=== PATIENT | female | born 1960 | race Caucasian/White ===

== ENCOUNTER 2020-05-10 14:37 | Outpatient (REF) | payer MEDICAID, SELFPAY ==
[2020-05-10 15:38] LABS: MANUAL DIFF FLAG NO
[2020-05-10 15:42] LABS: Basophils Percent Auto 0.4 % (0-2); Eosinophils Absolute Auto 0.1 X10*3/uL (0.0-0.4); Eosinophils Percent Auto 1.9 % (0-4); Hematocrit 36.8 % (37-47); Hemoglobin 11.4 g/dl (12.0-16.0); Imm Gran Abs Auto 0.04 X10*3/uL (0.00-0.03); Imm Gran Pct Auto 0.5 % (0.0-0.4); Lymphocytes Absolute Auto 1.4 X10*3/uL (1.2-4.9); Lymphocytes Percent Auto 19.4 % (20-40); Mean Corpuscular Hemoglobin 27.8 pg (27.0-33.0); Mean Corpuscular Volume 89.8 fL (80-98); Mean Platelet Volume 9.7 fL (9.4-12.3); Monocytes Absolute Auto 0.5 X10*3/uL (0.1-1.2); Neutrophils Absolute Auto 5.2 X10*3/uL (2.0-8.3); Neutrophils Percent Auto 70.8 % (45-73); Platelet Count 175 X10*3/uL (160-400); Red Cell Distribution Width 12.2 % (11.0-16.0); White Blood Count 7.4 X10*3/uL (4.8-10.8)
[2020-05-10 15:54] LABS: Estimated Average Glucose 332 mg/dL; Hemoglobin A1c % 13.2 %
[2020-05-10 16:12] LABS: Alanine Aminotransferase 14 U/L (0-31); Albumin Level 3.9 g/dL (3.5-5.0); Alkaline Phosphatase 89 U/L (39-117); Anion Gap 13 (12-20); Aspartate Amino Transferase 13 U/L (5-31); Bilirubin Total 0.3 mg/dL (0.0-1.0); Blood Urea Nitrogen 52 mg/dL (9-16); Calcium 8.4 mg/dL (8.4-10.2); Carbon Dioxide 26 mmol/L (22-29); Chloride 103 mmol/L (96-108); Estimated Glomerular Filt Rate 33; Glucose Random 494 mg/dL (60-115); Potassium 5.5 mmol/l (3.3-5.1); Sodium 136 mmol/L (135-145); Total Protein 6.8 g/dL (6.5-8.0)
[2020-05-10 16:31] LABS: Vitamin D 25-OH Total 10.1 ng/mL (>30)
[2020-05-10 16:38] LABS: Creatinine Urine 101.41 mg/dL; Microalbum/Creatinine Ratio Ur 96.6 ug/mg cr
== END 2020-05-10 14:38 | disposition home or self-care (01) ==
LOC: HO.LAB 14:37
PROVIDERS: PCP Internal Medicine; Visit Provider Internal Medicine
DX: R10.9 Unspecified abdominal pain (principal); E11.22 Type 2 diabetes mellitus with diabetic chronic kidney disease; N18.9 Chronic kidney disease, unspecified; E55.9 Vitamin D deficiency, unspecified
CPT/HCPCS: 36415; 80053; 82043; 82306; 83036; 85025

== ENCOUNTER 2020-09-14 13:28 | Outpatient (REF) | payer MEDICAID, SELFPAY ==
[2020-09-14 14:26] LABS: Estimated Average Glucose 292 mg/dL; Hemoglobin A1c % 11.8 %
[2020-09-14 15:02] LABS: Creatinine Urine 136.58 mg/dL; Microalbum/Creatinine Ratio Ur 51.2 ug/mg cr
[2020-09-14 15:08] LABS: Alanine Aminotransferase 12 U/L (0-31); Albumin Level 4.3 g/dL (3.5-5.0); Alkaline Phosphatase 98 U/L (39-117); Anion Gap 18 (12-20); Aspartate Amino Transferase 14 U/L (5-31); Bilirubin Total 0.4 mg/dL (0.0-1.0); Blood Urea Nitrogen 110 mg/dL (9-16); Calcium 9.2 mg/dL (8.4-10.2); Carbon Dioxide 19 mmol/L (22-29); Chloride 107 mmol/L (96-108); Estimated Glomerular Filt Rate 22; Glucose Fasting 379 mg/dL (60-99); Potassium 7.2 mmol/L (3.3-5.1); Sodium 137 mmol/L (135-145); Total Protein 7.4 g/dL (6.5-8.0)
[2020-09-19 15:52] LABS: VITAMIN D (1,25 OH) D3 30 pg/mL; Vit D (1,25-Dihydroxy) Total 30 pg/mL (18-72); Vitamin D (1,25 OH) D2 <8 pg/mL
== END 2020-09-14 13:29 | disposition home or self-care (01) ==
LOC: HO.LAB 13:28
PROVIDERS: PCP Internal Medicine; Visit Provider Internal Medicine
DX: E11.22 Type 2 diabetes mellitus with diabetic chronic kidney disease (principal); I12.9 Hypertensive chronic kidney disease with stage 1 through stage 4 chronic kidney disease, or unspecified chronic kidney disease; N18.9 Chronic kidney disease, unspecified; E55.9 Vitamin D deficiency, unspecified; Z79.4 Long term (current) use of insulin
CPT/HCPCS: 36415; 80053; 82043; 82652; 83036

== ENCOUNTER 2020-09-21 14:22 | Outpatient (REF) | payer MEDICAID, SELFPAY ==
[2020-09-21 15:50] LABS: Anion Gap 12 (12-20); Blood Urea Nitrogen 38 mg/dL (9-16); Calcium 8.6 mg/dL (8.4-10.2); Carbon Dioxide 25 mmol/L (22-29); Chloride 108 mmol/L (96-108); Estimated Glomerular Filt Rate 38; Glucose Random 141 mg/dL (60-115); Potassium 5.2 mmol/L (3.3-5.1); Sodium 140 mmol/L (135-145)
== END 2020-09-21 14:23 | disposition home or self-care (01) ==
LOC: HO.LAB 14:22
PROVIDERS: PCP Internal Medicine; Visit Provider Student in an Organized Health Care Education/Training Program
DX: N17.9 Acute kidney failure, unspecified (principal)
CPT/HCPCS: 36415; 80048

== ENCOUNTER 2020-10-11 18:56 | Emergency (ER) | payer MEDICAID, SELFPAY ==
--- NOTE | ~2020-10-11 | XR_ITS ---
EXAMINATION: XR TIBIA-FIBULA, RIGHT XR ANKLE, RIGHT XR FOOT, RIGHT CLINICAL INFORMATION: Trauma. COMPARISON: None TECHNIQUE: AP and lateral views of the right tibia and fibula. AP, lateral, and mortise views of the right ankle and AP, lateral, and oblique views of the right foot. FINDINGS: RIGHT TIBIA AND FIBULA: Minimal osteoarthritis of the right knee joint. No fracture or malalignment. Calcific atherosclerosis is present in the popliteal and runoff arteries. Mild soft tissue swelling extremities edema. 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 No acute fractures are identified. There is an old fracture at the tip of the lateral malleolus. No acute fractures. Small enthesopathic spurs are present at the Achilles tendon insertion and plantar fascial origin on the calcaneus. Calcific atherosclerosis is present in the ankle and foot. RIGHT FOOT: No acute fracture or malalignment. Bone mineralization is normal. Soft tissues are swollen. Calcific atherosclerosis is present in the foot. No erosions. Small enthesopathic spurs are present at the Achilles tendon insertion and plantar fascial origin on the calcaneus. XR/XR ankle RT 2V IMPRESSION: No acute fracture or malalignment in the right tibia, fibula, ankle, and foot. Mild osteoarthritis in the right knee and right ankle. Soft tissue swelling at the right ankle and foot.
--- NOTE | ~2020-10-11 | XR_ITS ---
EXAMINATION: XR TIBIA-FIBULA, RIGHT XR ANKLE, RIGHT XR FOOT, RIGHT CLINICAL INFORMATION: Trauma. COMPARISON: None TECHNIQUE: AP and lateral views of the right tibia and fibula. AP, lateral, and mortise views of the right ankle and AP, lateral, and oblique views of the right foot. FINDINGS: RIGHT TIBIA AND FIBULA: Minimal osteoarthritis of the right knee joint. No fracture or malalignment. Calcific atherosclerosis is present in the popliteal and runoff arteries. Mild soft tissue swelling extremities edema. 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 No acute fractures are identified. There is an old fracture at the tip of the lateral malleolus. No acute fractures. Small enthesopathic spurs are present at the Achilles tendon insertion and plantar fascial origin on the calcaneus. Calcific atherosclerosis is present in the ankle and foot. RIGHT FOOT: No acute fracture or malalignment. Bone mineralization is normal. Soft tissues are swollen. Calcific atherosclerosis is present in the foot. No erosions. Small enthesopathic spurs are present at the Achilles tendon insertion and plantar fascial origin on the calcaneus. XR/XR foot RT 2V IMPRESSION: No acute fracture or malalignment in the right tibia, fibula, ankle, and foot. Mild osteoarthritis in the right knee and right ankle. Soft tissue swelling at the right ankle and foot.
--- NOTE | ~2020-10-11 | XR_ITS ---
EXAMINATION: XR TIBIA-FIBULA, RIGHT XR ANKLE, RIGHT XR FOOT, RIGHT CLINICAL INFORMATION: Trauma. COMPARISON: None TECHNIQUE: AP and lateral views of the right tibia and fibula. AP, lateral, and mortise views of the right ankle and AP, lateral, and oblique views of the right foot. FINDINGS: RIGHT TIBIA AND FIBULA: Minimal osteoarthritis of the right knee joint. No fracture or malalignment. Calcific atherosclerosis is present in the popliteal and runoff arteries. Mild soft tissue swelling extremities edema. 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 No acute fractures are identified. There is an old fracture at the tip of the lateral malleolus. No acute fractures. Small enthesopathic spurs are present at the Achilles tendon insertion and plantar fascial origin on the calcaneus. Calcific atherosclerosis is present in the ankle and foot. RIGHT FOOT: No acute fracture or malalignment. Bone mineralization is normal. Soft tissues are swollen. Calcific atherosclerosis is present in the foot. No erosions. Small enthesopathic spurs are present at the Achilles tendon insertion and plantar fascial origin on the calcaneus. XR/XR tibia fibula RT 2V IMPRESSION: No acute fracture or malalignment in the right tibia, fibula, ankle, and foot. Mild osteoarthritis in the right knee and right ankle. Soft tissue swelling at the right ankle and foot.
[2020-10-11 20:14] VITALS: BP 149/71; PULSE 105; RESP 18; TEMP 37.3; O2SAT 97; BMI 48.1
--- NOTE | 2020-10-11 21:08 | ED_ITS ---
HPI - Extremity Injury (Lower) General Chief Complaint: Extremity Injury, Lower Stated Complaint: Ankle pain Time Seen by Provider: 10/11/20 20:20 Source: patient Mode of arrival: ambulatory Limitations: no limitations History of Present Illness HPI Narrative: 60-year-old female here with an inversion injury to the right ankle yesterday. Increasing pain and swelling today worsened with weight- bearing. Taking home gabapentin with continued pain. No numbness, tingling, erythema, warmth, fevers, chills. Lives at home with the daughter. Has a cane and walker Related Data Allergies Allergy/AdvReac Type Severity Reaction Status Date / Time No Known Allergies Allergy Unverified 04/05/20 15:00 acetaminophen [Tylenol] AdvReac Unknown vommiting, Verified 09/10/17 00:00 itching ibuprofen AdvReac Unknown vommiting, Verified 09/10/17 00:00 itching morphine AdvReac Unknown vomiting Verified 09/21/19 00:00 Motrin Allergy Unknown itching Uncoded 09/21/19 00:00 Review of Systems Review of Systems: Yes all other systems are reviewed and are negative Constitutional: Constitutional: Reports no additional constitutional complaints, Denies body ache(s), Denies chills, Denies fever(s), Denies headache(s) and Denies weakness Eyes: Eyes: Reports no additional eye complaints and Denies change in vision ENT: Reports system reviewed and no additional complaints, except as documented, Denies dizziness, Denies headache(s), Denies nasal congestion, Denies nasal discharge and Denies neck pain Cardiovascular: Cardiovascular: Reports no additional cardiovascular complaints, Denies chest pain, Denies leg edema and Denies dyspnea Respiratory: Respiratory: Reports no additional respiratory complaints, Denies cough and Denies dyspnea Gastrointestinal: Gastrointestinal: Reports no additional gastrointestinal complaints, Denies abdominal pain, Denies diarrhea, Denies nausea and Denies vomiting Genitourinary: Genitourinary: Reports no additional female genitourinary complaints and Denies urinary incontinence Musculoskeletal: Musculoskeletal: Reports no additional musculoskeletal complaints, Denies back pain, Reports arthralgias, Reports joint swelling, Reports limited range of motion, Denies neck pain, Denies numbness and Denies tingling Integumentary/Breasts: Skin/Breast: Reports system reviewed and no additional complaints, except as docu and Denies rash Neurologic: Reports system reviewed and no additional complaints, except as documented, Denies Abnormal speech present, Denies dizziness, Denies headache(s), Denies numbness, Denies tingling and Denies weakness PMFSH Past Medical History Attestation statement: The following information was validated with the patient. Source: old records reviewed and nursing notes reviewed Medical History Asthma delivery delivered Chronic pain Depression Diabetes High cholesterol Hypertension Surgical History Hx of cholecystectomy Social History Social History Advance Directives: No Advance Directives Information Provided: Yes Physical Exam Vital Signs: Vital Signs: Last Vital Signs Temp 99.2 F 10/11/20 20:14 Pulse 105 H 10/11/20 20:14 Resp 18 10/11/20 20:14 BP 149/71 H 10/11/20 20:14 Pulse Ox 97 10/11/20 20:14 Body Mass Index 48.1 Const: General: cooperative, healthy appearing, comfortable and no acute distress Orientation/consciousness: patient oriented x3 Limitations: no limitations HENMT: Head: Yes normal to inspection Ears: hearing grossly normal bilaterally General nose exam: Normal external nose present Face and sinus: Yes normal facial exam Mouth: Normal oral and palatal mucosa present Throat: Yes posterior oropharynx normal Eyes: General: appearance normal, both eyes and all related structures Pupils: Equal, round and reactive pupils present Neck: Neck: Yes normal visual inspection Chest: Chest palpation & inspection: normal inspection of the chest Resp: Effort & Inspection: normal respiratory effort Auscultation: clear to auscultation bilaterally Cardio: Rate: regular rate Rhythm: regular rhythm Peripheral pulses: Peripheral pulses 2+ throughout GI: Inspection: Yes normal to inspection Palpation (GI): Soft to palpation and nontender Auscultation: normal bowel sounds Back/Spine/Pelvis: Thoracic/Lumbar Spine: thoracic and lumbar spine normal to inspection Skin: General skin exam: no rashes or lesions noted Neuro: General: patient oriented x3, no focal motor deficits and normal sensation to monofilament Cranial nerves: Yes Equal, round and reactive pupils present Cognition (Neuro): normal cognition Speech: No Abnormal speech present Gait exam (Neuro): Normal gait present Motor exam (neuro): 5/5 motor strength present throughout Extrem: Other: Tenderness over the lateral ankle with mild to moderate swelling over the dorsal foot. Palpable distal pulses. Patient is able to flex and extend the toes with no difficulty. She does have pain with plantar flexion and dorsiflexion of the foot. No warmth or erythema. No ligamental laxity Course Course Course Narrative: 60-year-old female here with right foot/ankle pain status post inversion injury yesterday. Will order x-rays. 2114-x-rays unremarkable. Likely sprain. Patient was placed in Tanmay wrap. She tells me that she has a cane and a walker at home which she will use for ambulation. She lives with her daughter who helps take care of her. She was offered a physical therapy evaluation and case management involvement for possible short-term rehab placement but declined. Reviewed worrisome signs and symptoms of when to return to the emergency department. Comfortable discharge home. Procedures Procedure Narrative Procedure Narrative: tanmay wrap right ankle/foot MDM - Extremity Injury (Lower) Medical Records Attestation: I reviewed the patient's medical records. Lab Data Attestation: I reviewed the patient's lab results. Imaging Data ankle/foot/tibia/fibula x-ray: Attestation: I personally reviewed and interpreted this imaging study as follows: Radiologist's impression: FINDINGS: RIGHT TIBIA AND FIBULA: Minimal osteoarthritis of the right knee joint. No fracture or malalignment. Calcific atherosclerosis is present in the popliteal and runoff arteries. Mild soft tissue swelling extremities edema. 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 No acute fractures are identified. There is an old fracture at the tip of the lateral malleolus. No acute fractures. Small enthesopathic spurs are present at the Achilles tendon insertion and plantar fascial origin on the calcaneus. Calcific atherosclerosis is present in the ankle and foot. RIGHT FOOT: No acute fracture or malalignment. Bone mineralization is normal. Soft tissues are swollen. Calcific atherosclerosis is present in the foot. No erosions. Small enthesopathic spurs are present at the Achilles tendon insertion and plantar fascial origin on the calcaneus. XR/XR ankle RT 2V IMPRESSION: No acute fracture or malalignment in the right tibia, fibula, ankle, and foot. Mild osteoarthritis in the right knee and right ankle. Soft tissue swelling at the right ankle and foot. Discharge Plan Discharge Clinical Impression: Ankle sprain and strain Patient Disposition: Home, Self-Care Instructions: Ankle Sprain (ED) Additional Instructions: Rest, ice, tanmay wrap for comfort, limit weight bearing Continue your gabapentin at home Follow-up with your PCP in 2-3 days for persistent pain. Referrals: Tavo Huber MD [Primary Care Provider] - 2 days
== END 2020-10-11 22:00 | disposition home or self-care (01) ==
PROVIDERS: Emergency Provider Internal Medicine; PCP Internal Medicine
DX: S93.401A Sprain of unspecified ligament of right ankle, initial encounter (principal); S96.911A Strain of unspecified muscle and tendon at ankle and foot level, right foot, initial encounter; X50.1XXA Overexertion from prolonged static or awkward postures, initial encounter; M19.071 Primary osteoarthritis, right ankle and foot; M17.11 Unilateral primary osteoarthritis, right knee; E11.9 Type 2 diabetes mellitus without complications; I10 Essential (primary) hypertension; E78.5 Hyperlipidemia, unspecified; J45.909 Unspecified asthma, uncomplicated; Z79.899 Other long term (current) drug therapy; Y93.9 Activity, unspecified; Y92.9 Unspecified place or not applicable; Y99.9 Unspecified external cause status
CPT/HCPCS: 73590; 73600; 73620; 99283

== ENCOUNTER 2020-11-22 21:13 | Inpatient (IN) | payer MEDICAID, SELFPAY ==
--- NOTE | ~2020-11-22 | XR_ITS ---
EXAMINATION: XR ANKLE, LEFT CLINICAL INFORMATION: Pain status post injury COMPARISON: None TECHNIQUE: AP, lateral, and mortise views of the left ankle. FINDINGS: There is marked bilateral soft tissue swelling seen. No definite acute ankle fracture is seen. The ankle mortise appears stable. Vascular calcifications are present. XR/XR ankle LT min 3V IMPRESSION: Soft tissue swelling without fracture
--- NOTE | ~2020-11-22 | XR_ITS ---
EXAMINATION: XR CHEST CLINICAL INFORMATION: Cough COMPARISON: 09/12/2016 TECHNIQUE: 2 views of the chest were obtained. FINDINGS: The heart is enlarged. There is central pulmonary vascular congestion and increased interstitial markings present bilaterally. Small pleural effusions are present. Findings are suggestive of CHF with interstitial edema. XR/XR chest 2V IMPRESSION: Cardiomegaly with CHF and interstitial pulmonary edema is the most likely diagnosis.
[2020-11-22 21:28] VITALS: BP 130/65; BP 148/86; PULSE 100; PULSE 96; RESP 16; TEMP 37; O2SAT 95; BMI 48.4
[2020-11-22 21:40] VITALS: BP 131/64; PULSE 92; RESP 18; TEMP 36.3; O2SAT 97
--- NOTE | 2020-11-22 22:55 | ED_ITS ---
HPI - Extremity Injury (Lower) General Chief Complaint: Extremity Injury, Lower Stated Complaint: ankle pain Time Seen by Provider: 11/22/20 21:51 Source: patient Mode of arrival: EMS History of Present Illness HPI Narrative: 60-year-old female who was recently discharged from SNF for rehab arrives via ambulance for patient stating that she attempted to prepare some food for herself at home and states that she stepped and landed a little bit off on her left ankle and states that afterwards she was having some considerable pain at the left ankle and called EMS to be brought in for further evaluation. Patient states that she feels weak and unable to complete her ADLs because ?she has no help at home?. Otherwise, she denies any fever, chills, shortness of breath/chest pain/palpitations, GI symptoms, or symptoms. Related Data Home Medications Medication Instructions Recorded Confirmed albuterol sulfate [ProAir HFA] 2 puff INHALATION QID PRN 11/23/20 11/23/20 amlodipine 1 tab PO DAILY 11/23/20 11/23/20 aspirin 1 tab PO DAILY 11/23/20 11/23/20 fluoxetine 1 cap PO DAILY 11/23/20 11/23/20 fluticasone propionate [Flovent 2 puff INHALATION BID 11/23/20 11/23/20 HFA] furosemide 40 mg PO DAILY 11/23/20 11/23/20 gabapentin 1 cap PO TID 11/23/20 11/23/20 insulin glargine [Lantus U-100 65 unit SUBCUT BEDTIME 11/23/20 11/23/20 Insulin] insulin lispro [Humalog U-100 SUBCUT DIRECTED 11/23/20 Insulin] metoprolol succinate 1 tab PO DAILY 11/23/20 11/23/20 omeprazole 1 cap PO DAILY 11/23/20 11/23/20 simvastatin 1 tab PO BEDTIME 11/23/20 11/23/20 tramadol 1 tab PO QID 11/23/20 11/23/20 Allergies Allergy/AdvReac Type Severity Reaction Status Date / Time No Known Allergies Allergy Verified 11/22/20 21:28 acetaminophen [Tylenol] AdvReac Unknown vommiting, Verified 11/22/20 21:28 itching ibuprofen AdvReac Unknown vommiting, Verified 11/22/20 21:28 itching morphine AdvReac Unknown vomiting Verified 11/22/20 21:28 Motrin Allergy Unknown itching Uncoded 09/21/19 00:00 Review of Systems Review of Systems: Pertinent positives and negatives as stated in HPI 10 point review of systems is otherwise negative. PMFSH Past Medical History Source: nursing notes reviewed Medical History Asthma delivery delivered Chronic pain Depression Diabetes High cholesterol Hypertension Surgical History Hx of cholecystectomy Social History Social History Alcohol intake: never Smoking Status: Former smoker Advance Directives: No Patient : No Physical Exam Vital Signs: Vital Signs: Last Vital Signs Temp 98.8 F 11/23/20 00:56 Pulse 93 11/23/20 00:56 Resp 20 11/23/20 00:56 BP 116/56 L 11/23/20 00:56 Pulse Ox 94 11/23/20 00:56 Body Mass Index 48.4 VITAL SIGNS: Reviewed. GENERAL: Well developed, well nourished, in no acute distress. HEAD: Normocephalic/atraumatic, EYES: PERRLA, EOMI EARS: Ext canals without abnormality OROPHARYNX: no oral lesions noted, posterior pharynx clear NECK: Supple, no adenopathy LUNGS: Normal breath sounds. No adventitious sounds or accessory muscle use. SpO2<97> CARDIOVASCULAR: Regular rate and rhythm without noted murmurs, no JVD but noted bilateral lower leg 1-2+ edema ABDOMEN: Obese, Soft, non-tender, non-distended with bowel sounds. EXTREMITIES: Left ankle/foot mild swelling but appear somewhat chronic and symmetric with right on comparison, foot is warm, capillary refill less than 3 seconds, palpable DP/PT. NEUROLOGIC: Alert and oriented x 4. Strength and sensation to light touch were grossly intact x 4. Course Course Course Narrative: 60-year-old female with history and clinical presentation consistent with poor mobility at home despite completing a recent course in rehab for which she was discharged on 11/14. Will evaluate with basic lab work to ensure no evidence of infection or new anemia that may have contributed to patient's current event this evening. At this time patient is requesting further help at home and is interested in re-entering rehab. On review of all investigations results consistent with CHF exacerbation with FELICIA. Patient provided with the Elliott placement and 80 mg of IV Lasix. Discussed case with inpatient hospital team who is agreeable for admission. MDM - Extremity Injury (Lower) Lab Data Result diagrams: 11/22/20 23:52 11/22/20 23:52 Labs: Lab Results 11/22/20 11/22/20 11/22/20 Range/Units 23:44 23:52 23:52 WBC 13.4 H (4.8-10.8) X10*3/uL RBC 3.41 L (4.20-5.50) X10*6/uL Hgb 9.3 L (12.0-16.0) g/dl Hct 31.2 L (37-47) % MCV 91.5 (80-98) fL MCH 27.3 (27.0-33.0) pg MCHC 29.8 L (31.0-35.0) g/dl RDW 15.3 (11.0-16.0) % Plt Count 209 (160-400) X10*3/uL MPV 9.3 L (9.4-12.3) fL Immature Gran % (Auto) 0.4 (0.0-0.4) % Neut % (Auto) 77.7 H (45-73) % Lymph % (Auto) 13.3 L (20-40) % [place] % (Auto) 7.0 (2-11) % Eos % (Auto) 1.5 (0-4) % Baso % (Auto) 0.1 (0-2) % Lymph # (Auto) 1.8 (1.2-4.9) X10*3/uL [place] # (Auto) 0.9 (0.1-1.2) X10*3/uL Eos # (Auto) 0.2 (0.0-0.4) X10*3/uL Baso # (Auto) 0.0 (0.0-0.2) X10*3/uL Abs Immat Gran (auto) 0.06 H (0.00-0.03) X10*3/uL Absolute Neuts (auto) 10.4 H (2.0-8.3) X10*3/uL Absolute Nucleated RBC 0.000 (0.0-0.012) X10*3/uL Nucleated RBC % (auto) 0.0 (0.0-0.2) /100WBC Sodium 141 (135-145) mmol/L Potassium 5.3 H (3.3-5.1) mmol/L Chloride 108 (96-108) mmol/L Carbon Dioxide 24 (22-29) mmol/L Anion Gap 14 (12-20) BUN 47 H (9-16) mg/dL Creatinine 1.41 H (0.5-1.4) mg/dL Estim Creat Clear Calc 53.0 Estimated GFR 38 Random Glucose 99 (60-115) mg/dL Calcium 8.2 L (8.4-10.2) mg/dL Total Bilirubin 0.6 (0.0-1.0) mg/dL AST 10 (5-31) U/L ALT 10 (0-31) U/L Alkaline Phosphatase 81 (39-117) U/L B-Natriuretic Peptide (<100) pg/mL Total Protein 6.6 (6.5-8.0) g/dL Albumin 3.8 (3.5-5.0) g/dL Urine Color YELLOW Urine Appearance CLEAR Urine pH 5.5 (5.0-8.0) Ur Specific [place] 1.020 (1.005-1.025) Urine Protein NEG (NEG-TRACE) MG/DL Urine Glucose (UA) NEG (NEG) MG/DL Urine Ketones NEG (NEG) MG/DL Urine Blood NEG (NEG) Urine Nitrite NEG (NEG) Ur Leukocyte Esterase NEG (NEG) 11/22/20 Range/Units 23:52 WBC (4.8-10.8) X10*3/uL RBC (4.20-5.50) X10*6/uL Hgb (12.0-16.0) g/dl Hct (37-47) % MCV (80-98) fL MCH (27.0-33.0) pg MCHC (31.0-35.0) g/dl RDW (11.0-16.0) % Plt Count (160-400) X10*3/uL MPV (9.4-12.3) fL Immature Gran % (Auto) (0.0-0.4) % Neut % (Auto) (45-73) % Lymph % (Auto) (20-40) % [place] % (Auto) (2-11) % Eos % (Auto) (0-4) % Baso % (Auto) (0-2) % Lymph # (Auto) (1.2-4.9) X10*3/uL [place] # (Auto) (0.1-1.2) X10*3/uL Eos # (Auto) (0.0-0.4) X10*3/uL Baso # (Auto) (0.0-0.2) X10*3/uL Abs Immat Gran (auto) (0.00-0.03) X10*3/uL Absolute Neuts (auto) (2.0-8.3) X10*3/uL Absolute Nucleated RBC (0.0-0.012) X10*3/uL Nucleated RBC % (auto) (0.0-0.2) /100WBC Sodium (135-145) mmol/L Potassium (3.3-5.1) mmol/L Chloride (96-108) mmol/L Carbon Dioxide (22-29) mmol/L Anion Gap (12-20) BUN (9-16) mg/dL Creatinine (0.5-1.4) mg/dL Estim Creat Clear Calc Estimated GFR Random Glucose (60-115) mg/dL Calcium (8.4-10.2) mg/dL Total Bilirubin (0.0-1.0) mg/dL AST (5-31) U/L ALT (0-31) U/L Alkaline Phosphatase (39-117) U/L B-Natriuretic Peptide 131 H (<100) pg/mL Total Protein (6.5-8.0) g/dL Albumin (3.5-5.0) g/dL Urine Color Urine Appearance Urine pH (5.0-8.0) Ur Specific [place] (1.005-1.025) Urine Protein (NEG-TRACE) MG/DL Urine Glucose (UA) (NEG) MG/DL Urine Ketones (NEG) MG/DL Urine Blood (NEG) Urine Nitrite (NEG) Ur Leukocyte Esterase (NEG) Discharge Plan Discharge Clinical Impression: CHF exacerbation, FELICIA (acute kidney injury) Patient Disposition: Admitted As Inpatient
[2020-11-22 23:51] LABS: Glucose Urine UA NEG (NEG); Leukocyte Esterase Urine NEG (NEG); Nitrite Urine NEG (NEG); PH 5.5 (5.0-8.0); Urine Blood NEG (NEG); Urine Ketones NEG (NEG); Urine Protein NEG (NEG-TRACE)
[2020-11-22 23:52] LABS: Appearance Urine CLEAR; Color Urine YELLOW
[2020-11-22 23:56] LABS: MANUAL DIFF FLAG NO
[2020-11-22 23:57] LABS: Basophils Percent Auto 0.1 % (0-2); Eosinophils Absolute Auto 0.2 X10*3/uL (0.0-0.4); Eosinophils Percent Auto 1.5 % (0-4); Hematocrit 31.2 % (37-47); Hemoglobin 9.3 g/dl (12.0-16.0); Imm Gran Abs Auto 0.06 X10*3/uL (0.00-0.03); Imm Gran Pct Auto 0.4 % (0.0-0.4); Lymphocytes Absolute Auto 1.8 X10*3/uL (1.2-4.9); Lymphocytes Percent Auto 13.3 % (20-40); Mean Corpuscular HGB Conc 29.8 g/dl (31.0-35.0); Mean Corpuscular Hemoglobin 27.3 pg (27.0-33.0); Mean Corpuscular Volume 91.5 fL (80-98); Mean Platelet Volume 9.3 fL (9.4-12.3); Monocytes Absolute Auto 0.9 X10*3/uL (0.1-1.2); Neutrophils Absolute Auto 10.4 X10*3/uL (2.0-8.3); Neutrophils Percent Auto 77.7 % (45-73); Platelet Count 209 X10*3/uL (160-400); Red Blood Count 3.41 X10*6/uL (4.20-5.50); Red Cell Distribution Width 15.3 % (11.0-16.0); White Blood Count 13.4 X10*3/uL (4.8-10.8)
[2020-11-23] VITALS (9 sets, daily range): BP systolic 116–158; BP diastolic 56–70; PULSE 93–104; RESP 18–20; TEMP 36.3–37.1; O2SAT 93–96; BMI 49.7
[2020-11-23 00:30] LABS: Alanine Aminotransferase 10 U/L (0-31); Albumin Level 3.8 g/dL (3.5-5.0); Alkaline Phosphatase 81 U/L (39-117); Anion Gap 14 (12-20); Aspartate Amino Transferase 10 U/L (5-31); Bilirubin Total 0.6 mg/dL (0.0-1.0); Blood Urea Nitrogen 47 mg/dL (9-16); Calcium 8.2 mg/dL (8.4-10.2); Carbon Dioxide 24 mmol/L (22-29); Chloride 108 mmol/L (96-108); Estimated Glomerular Filt Rate 38; Glucose Random 99 mg/dL (60-115); Potassium 5.3 mmol/L (3.3-5.1); Sodium 141 mmol/L (135-145); Total Protein 6.6 g/dL (6.5-8.0)
[2020-11-23 02:04] LABS: B Type Natriuretic Peptide 131 pg/mL (<100)
[2020-11-23] MEDS: Piperacillin Sodium/Tazobactam 3.375 GM in 0.9 % Sodium Chloride 50 ML IV (02:16)
[2020-11-23] MEDS: Furosemide 100 MG/10 ML VIAL 80 MG IVPUSH (02:16)
[2020-11-23 03:47] LABS: COVID-19 Test Negative (Negative); IDNOW Serial# 9DD0AD1C
--- NOTE | 2020-11-23 05:14 | P.HPHOSP_ITS ---
History of Present Illness Date of Service: 11/23/20 Chief Complaint: leg swelling and pain 60-year-old female with past medical history of see history HTN, DM, CHF HLD, depression, asthma, who presents to the hospital with complaints leg swelling. Patient reports that her leg swelling been going on for past 2 weeks with worsening. She also has dyspnea, no cough or sputum production, no fever or chills. She is also complaining of orthopnea, PND. She has diarrhea for the past 2 days, watery today constant smelly nonbloody. She denies any abdominal pain nausea or vomiting. No chest pain or palpitations, no headache or change in vision, no urinary symptoms and no fever chills. She reports that she got discharged from rehab on 11/14 after fracturing her ankle. On arrival to the hospital patient's vitals are significant for a temp of 99.2?, heart rate of 105, respiratory rate of 18, blood pressure of 149/71, satting 97% on room air Labs are significant for WBC count Of 13.4, hemoglobin of 9.3 from 11.4 in 05/08 hematocrit 31.2, MCV of 91.5, potassium of 5.3, BUN of 47, creatinine of 1.41 which is around her baseline, BNP of 131, UA negative. Chest x-ray shows CHF and pulmonary congestion Past medical history as below and confirmed with patient Review of Systems Review of Systems: Yes all other systems are reviewed and are negative [facility] Medical History Asthma delivery delivered Chronic pain Depression Diabetes High cholesterol Hypertension Surgical History Hx of cholecystectomy Social History Alcohol intake: never Smoking Status: Former smoker Advance Directives: No Patient : No Meds Allergies Allergy/AdvReac Type Severity Reaction Status Date / Time No Known Allergies Allergy Verified 11/22/20 21:28 acetaminophen [Tylenol] AdvReac Unknown vommiting, Verified 11/22/20 21:28 itching ibuprofen AdvReac Unknown vommiting, Verified 11/22/20 21:28 itching morphine AdvReac Unknown vomiting Verified 11/22/20 21:28 Motrin Allergy Unknown itching Uncoded 09/21/19 00:00 Home Medications Medication Instructions Recorded Confirmed Last Taken Type albuterol sulfate [ProAir HFA] 2 puff INHALATION QID PRN 11/23/20 11/23/20 11/22/20 History amlodipine 1 tab PO DAILY 11/23/20 11/23/20 11/22/20 History aspirin 1 tab PO DAILY 11/23/20 11/23/20 11/22/20 History fluoxetine 1 cap PO DAILY 11/23/20 11/23/20 11/22/20 History fluticasone propionate [Flovent 2 puff INHALATION BID 11/23/20 11/23/20 11/22/20 History HFA] furosemide 40 mg PO DAILY 11/23/20 11/23/20 11/22/20 History gabapentin 1 cap PO TID 11/23/20 11/23/20 11/22/20 History insulin glargine [Lantus U-100 65 unit SUBCUT BEDTIME 11/23/20 11/23/20 11/22/20 History Insulin] insulin lispro [Humalog U-100 SUBCUT DIRECTED 11/23/20 11/22/20 History Insulin] metoprolol succinate 1 tab PO DAILY 11/23/20 11/23/20 11/22/20 History omeprazole 1 cap PO DAILY 11/23/20 11/23/20 11/22/20 History simvastatin 1 tab PO BEDTIME 11/23/20 11/23/20 11/22/20 History tramadol 1 tab PO QID 11/23/20 11/23/20 11/22/20 History Physical Exam Vital Signs and Narrative: Vital Signs: Last Vital Signs Temp 98.8 F 11/23/20 00:56 Pulse 93 11/23/20 00:56 Resp 20 11/23/20 00:56 BP 116/56 L 11/23/20 00:56 Pulse Ox 94 11/23/20 00:56 Body Mass Index 48.4 Const: General: cooperative and no acute distress Or ientation/consciousness: patient oriented x3 Eyes: General: appearance normal, both eyes and all related structures Resp: Effort & Inspection: normal respiratory effort and able to speak in complete sentences Cardio: Rate: regular rate Rhythm: regular rhythm GI: Palpation (GI): Soft to palpation Auscultation: normal bowel sounds Skin: General skin exam: no rashes or lesions noted Neuro: General: patient oriented x3 Cognition (Neuro): normal cognition Extrem: Other: Lower extremity edema bilaterally, no erythema or warmth General: Yes normal to inspection Results Labs CBC and Chem 7: 11/22/20 23:52 11/22/20 23:52 Labs: Laboratory Results - last 24 hr 11/22/20 11/22/20 11/22/20 23:44 23:52 23:52 MCV 91.5 MCH 27.3 MCHC 29.8 L RDW 15.3 Plt Count 209 MPV 9.3 L Immature Gran % (Auto) 0.4 Neut % (Auto) 77.7 H Lymph % (Auto) 13.3 L Br[place] % (Auto) 7.0 Eos % (Auto) 1.5 Baso % (Auto) 0.1 Lymph # (Auto) 1.8 Br[place] # (Auto) 0.9 Eos # (Auto) 0.2 Baso # (Auto) 0.0 Abs Immat Gran (auto) 0.06 H Absolute Neuts (auto) 10.4 H Absolute Nucleated RBC 0.000 Nucleated RBC % (auto) 0.0 Anion Gap 14 Estim Creat Clear Calc 53.0 Estimated GFR 38 Random Glucose 99 Calcium 8.2 L Total Bilirubin 0.6 AST 10 ALT 10 Alkaline Phosphatase 81 B-Natriuretic Peptide Total Protein 6.6 Albumin 3.8 Urine Color YELLOW Urine Appearance CLEAR Urine pH 5.5 Ur Specific [place] 1.020 Urine Protein NEG Urine Glucose (UA) NEG Urine Ketones NEG Urine Blood NEG Urine Nitrite NEG Ur Leukocyte Esterase NEG COVID-19 ([facility]) COVID-19 Clin Com 11/22/20 11/23/20 23:52 03:25 MCV MCH MCHC RDW Plt Count MPV Immature Gran % (Auto) Neut % (Auto) Lymph % (Auto) [place] % (Auto) Eos % (Auto) Baso % (Auto) Lymph # (Auto) [place] # (Auto) Eos # (Auto) Baso # (Auto) Abs Immat Gran (auto) Absolute Neuts (auto) Absolute Nucleated RBC Nucleated RBC % (auto) Anion Gap Estim Creat Clear Calc Estimated GFR Random Glucose Calcium Total Bilirubin AST ALT Alkaline Phosphatase B-Natriuretic Peptide 131 H Total Protein Albumin Urine Color Urine Appearance Urine pH Ur Specific [place] Urine Protein Urine Glucose (UA) Urine Ketones Urine Blood Urine Nitrite Ur Leukocyte Esterase COVID-19 ([facility]) Negative COVID-19 Clin Com See Note Imaging Radiologist's Impressions: Impressions Ankle X-Ray 11/22/20 21:52 IMPRESSION: Soft tissue swelling without fracture Chest X-Ray 11/23/20 00:13 IMPRESSION: Cardiomegaly with CHF and interstitial pulmonary edema is the most likely diagnosis. Assessment and Plan (1) CHF exacerbation: Status: Acute (2) Leukocytosis: Status: Acute (3) Diarrhea: Status: Acute (4) Swelling of lower extremity: Status: Acute This is a 60-year-old female who presents to the hospital with lower leg swelling # lower extremity swelling - most likely secondary to CHF exacerbation - she also has dyspnea, orthopnea and PND which suggest more of CHF than any o ther etiology - x-ray of the ankle shows swelling with no evidence of acute fracture abnormality otherwise - will treat with Lasix - follow daily weight # CHF exacerbation - orthopnea, PND, dyspnea, and lower extremity edema as well as chest x-ray findings suggestive of CHF - reports that she eats a lot of canned and frozen foods - compliant with her Lasix - will treat with Lasix 40 IV b.i.d. - daily weight, strict I&O, low-sodium diet - echocardiogram - educated about avoiding salty food # diarrhea - has had constant nonstop watery diarrhea all day - rule out community-acquired C diff - if does not improve consider abdominal CT # leukocytosis - possibly secondary to the diarrhea - has no other evidence of infection on chest x-ray UA - no soft tissue infection - follow CBC -received 1 dose of Zosyn in the ED. At this time I will hold off on continue antibiotics as there is no clear evidence of infection present or source # diabetes - continue home insulin - diabetic diet - POC q.i.d. a.c. # hypertension -stable, continue amlodipine # GERD - continue omeprazole # hyperlipidemia - continue statin DVT prophylaxis: Lovenox
--- NOTE | 2020-11-23 05:40 | CA_ITS ---
Transthoracic Echocardiogram Patient (Last, First, Middle): Lupis Mueller, Gender: Female Date of : 1960 Age: 60 Procedure Date: 11/23/2020 Procedure Type: Transthoracic Echocardiogram Location: S3E Height: 157.48 cm Weight: 123.38 kg BSA: 2.18 m2 Heart Rate: bpm BP: 158 / 63 mmHg Rn Relief Charge: Referring MD: Bhargav Atkins MD Symptoms: CHF exacerbation Study Quality: Fair ECG Rhythm: Sinus Conclusions: - The left ventricular systolic function is mild to moderately decreased. The visually estimated ejection fraction is between 40-45%. - There is moderate mitral annular calcification. Findings Left Ventricle Normal left ventricular cavity size. There is mildly increased left ventricular wall thickness. The left ventricular systolic function is mild to moderately decreased. The visually estimated ejection fraction is between 40-45%. The calculated ejection fraction is 44% by biplane method. E/E prime ratio is >15, consistent with elevated filling pressures. Evidence suggests grade I (mild) diastolic dysfunction. Global hypokinesis with regionality in the basal inferior, inferolateral wall. Right Ventricle Normal right ventricular cavity size and systolic function. Atria The left atrium is normal in size. The right atrium is normal in size. Aortic Valve The aortic valve was not well visualized. There is no aortic valve stenosis. There is no aortic valve regurgitation. Mitral Valve There is moderate mitral annular calcification. There is mild mitral valve regurgitation. There is no mitral valve stenosis. Pulmonic Valve The pulmonic valve was not well visualized. Tricuspid Valve There is trace tricuspid valve regurgitation. The pulmonary artery systolic pressure is normal. Great Vessels The aortic annulus, sinuses of valsalva, and asc aorta are normal in size. Venous The inferior vena cava is mildly dilated and collapses greater than 50% with inspiration. Pericardium/Pleural There is no evidence of pericardial effusion. Prior Study Comparison Changes noted compared to prior study dated: 09/01/2019. LVEF lower than reported in prior study. Measurements 2D Linear Measurements IVSd: 1.32 0.6-0.9/0.6-1.0 cm LVIDd: 5.86 3.9-5.3/4.2-5.9 cm LVIDd Index: 2.69 2.4-3.2/2.2-3.1 cm/m2 LVIDs: 3.86 2.0-3.6 cm LVPWd: 1.28 0.7-1.1 cm Ao Root: 3.10 2.1-3.5 cm LA Diam: 4.20 2.7-3.8/3.0-4.0 cm LAIDs Index: 1.93 1.5-2.3 cm/m2 LV Mass: 420.44 67-162/88-224 g LV Mass Index: 192.86 43-95/49-115 g/m2 LVOT Diam: 2.30 3.0+(-)1.3 cm 2D Systolic Function EF 4C: 46.80 >55% EF 2C: 42.40 >55% EF BiP: 43.70 >55% Mitral Valve MV Pk E: 0.96 MV PK A: 1.03 MV Decel Time: 88.00 E/A: 0.90 E'Lateral: 7.72 E'Medial: 4.57 E/E' Med: 21.00 E/E' Lat: 12.40 PHT: 26.00 MVA PHT: 8.46 Decel [place]: 10.96 Aortic Valve AoV Pk Jairo: 1.69 AoV Mn Jairo: 1.11 AoV VTI: 0.40 AoV Pk Grad: 11.00 Aov Mn Grad: 6.00 STEVE Cont.VTI: 2.78 LVOT LVOT Pk Jairo: 1.21 LVOT Mn Jairo: 0.87 LVOT VTI: 0.27 LVOT Pk Grad: 6.00 LVOT Mn Grad: 3.00 LVOT Diam: 2.30 LVOT Area: 4.15 Diastolic Function MV Pk E: 0.96 MV Pk A: 1.03 E/A: 0.90 E'Medial: 4.57 E/E' Med: 21.00 E' Laterial: 7.72 E/E' Lat: 12.40 Tricuspid Valve TR Pk Jairo: 1.88 TR Pk Grad: 14.00 Great Vessels Aorta Ao Root-2D: 3.10 2.0-3.7 cm Ao Asc: 3.10 2.1-3.4 cm Pulmonary Valve PV Pk Jairo: 0.81 Peak PV Grad: 3.00 Updated in Other Vendor System with Status of Final Tim Szymanski MD electronically signed on 11/23/2020 2:13:48 PM with status of Final
[2020-11-23 05:57] LABS: Ferritin 115 ng/mL (10-250)
[2020-11-23 06:13] LABS: Folate 7.9 ng/mL (> or = 4.0); Vitamin B12 275 pg/mL (200-900)
[2020-11-23] MEDS: Omeprazole 20 MG CAPSULE.DR PO (06:46)
[2020-11-23] MEDS: Enoxaparin Sodium 40 MG/0.4 ML SYRINGE SUBCUT (06:46)
[2020-11-23] MEDS: Fluticasone Propionate 100 MCG BLST.W.DEV 2 PUFF INHALE ×2 (08:03→19:55)
[2020-11-23] MEDS: 0.9 % Sodium Chloride Flush 3 ML SYRINGE IVFLUSH ×3 (08:21→23:52)
[2020-11-23] MEDS: Aspirin Enteric Coated 81 MG TABLET.DR PO (08:26)
[2020-11-23] MEDS: Gabapentin 400 MG CAPSULE PO ×3 (08:26→20:18)
[2020-11-23] MEDS: Insulin Lispro 100 UNIT/ML 3 ML VIAL SUBCUT ×4 (08:26→20:19)
[2020-11-23] MEDS: Metoprolol Succinate ER 50 MG TAB.ER.24H PO (08:26)
[2020-11-23] MEDS: FLUoxetine HCl 20 MG CAPSULE 40 MG PO (08:26)
[2020-11-23] MEDS: traMADoL HCL 50 MG TABLET PO ×4 (08:26→20:18)
[2020-11-23] MEDS: amLODIPine Besylate 10 MG TABLET PO (08:26)
[2020-11-23 08:56] LABS: Glucose, Whole Blood 171 mg/dL (60-115)
[2020-11-23 11:48] LABS: Glucose, Whole Blood 199 mg/dL (60-115)
[2020-11-23] MEDS: Furosemide 40 MG/4 ML VIAL IVPUSH (14:21)
--- NOTE | 2020-11-23 15:01 | MHC.CM.PN ---
NURSE IN TUBE CONVERSION TECHNICIAN NOTE ELECTRONIC MEDICAL RECORD REVIEWED ALONG WITH CASE DISCUSSED WITH STAFF NURSE AND ON MULTIPLE DISCIPLINARY ROUNDS. PATIENT REPORTED SHE WAS DISCHARGED FROM A HOSPITAL And went to rehab at [facility] she reported she was there for 30 days and then released home she had [facility] for nursing for medications management and diagnosis sign symptom managements and some home physical therapy her daughter is her mac artist patient reports she was unable to go upstairs to her bedroom because her feet were so swollen and ached. she slept in a recliner as she was short of breath and could not lay down flat . she reported the swelling continued up to her knees and her hands were also swollen. she was admitted to [facility] with the diagnosis of chf exacerbation. she was evaluated by the physical therapist and recommended short term rehab . iniated referral to her first choice [facility] both declined no bed availability discharge plan 1. str- both [facility] following patient for str 2. if d/c home she lives with her daughter , [facility] for medication administration management and sign /symptom management
[2020-11-23 16:09] LABS: Glucose, Whole Blood 212 mg/dL (60-115)
[2020-11-23] MEDS: oxyCODONE HCl Immed Release 5 MG TABLET PO (18:42)
[2020-11-23 20:01] LABS: Glucose, Whole Blood 228 mg/dL (60-115)
[2020-11-23] MEDS: Pregabalin 100 MG CAPSULE PO (20:18)
[2020-11-23] MEDS: Atorvastatin Calcium 10 MG TABLET PO (20:18)
[2020-11-23] MEDS: Insulin Glargine,Hum.rec.anlog 100 UNIT/ML 10 ML VIAL 65 UNIT SUBCUT (20:19)
[2020-11-23] MEDS: diphenhydrAMINE HCL 25 MG TABLET PO (22:57)
[2020-11-24] VITALS (8 sets, daily range): BP systolic 100–144; BP diastolic 59–78; PULSE 90–106; RESP 16–20; TEMP 36.5–37; O2SAT 92–96; BMI 49.2
[2020-11-24] MEDS: Furosemide 40 MG/4 ML VIAL IVPUSH ×2 (02:18→13:36)
[2020-11-24 05:33] LABS: MANUAL DIFF FLAG NO
[2020-11-24 05:35] LABS: Basophils Percent Auto 0.2 % (0-2); Eosinophils Absolute Auto 0.2 X10*3/uL (0.0-0.4); Eosinophils Percent Auto 1.8 % (0-4); Hematocrit 31.4 % (37-47); Hemoglobin 9.5 g/dl (12.0-16.0); Imm Gran Abs Auto 0.05 X10*3/uL (0.00-0.03); Imm Gran Pct Auto 0.5 % (0.0-0.4); Lymphocytes Absolute Auto 1.6 X10*3/uL (1.2-4.9); Lymphocytes Percent Auto 16.3 % (20-40); Mean Corpuscular HGB Conc 30.3 g/dl (31.0-35.0); Mean Corpuscular Hemoglobin 27.2 pg (27.0-33.0); Mean Platelet Volume 9.5 fL (9.4-12.3); Monocytes Absolute Auto 1.1 X10*3/uL (0.1-1.2); Neutrophils Percent Auto 70.2 % (45-73); Platelet Count 201 X10*3/uL (160-400); Red Blood Count 3.49 X10*6/uL (4.20-5.50); Red Cell Distribution Width 15.1 % (11.0-16.0); White Blood Count 9.9 X10*3/uL (4.8-10.8)
[2020-11-24 06:10] LABS: Anion Gap 16 (12-20); Blood Urea Nitrogen 46 mg/dL (9-16); Calcium 8.4 mg/dL (8.4-10.2); Carbon Dioxide 26 mmol/L (22-29); Chloride 104 mmol/L (96-108); Estimated Glomerular Filt Rate 39; Glucose Random 210 mg/dL (60-115); Potassium 4.7 mmol/L (3.3-5.1); Sodium 141 mmol/L (135-145)
[2020-11-24] MEDS: Omeprazole 20 MG CAPSULE.DR PO (06:20)
[2020-11-24] MEDS: Enoxaparin Sodium 40 MG/0.4 ML SYRINGE SUBCUT (06:21)
[2020-11-24 07:43] LABS: Glucose, Whole Blood 202 mg/dL (60-115)
[2020-11-24] MEDS: Insulin Lispro 100 UNIT/ML 3 ML VIAL SUBCUT ×4 (07:45→21:45)
[2020-11-24] MEDS: 0.9 % Sodium Chloride Flush 3 ML SYRINGE IVFLUSH ×3 (07:46→21:46)
[2020-11-24] MEDS: Fluticasone Propionate 100 MCG BLST.W.DEV 2 PUFF INHALE (07:54)
[2020-11-24] MEDS: FLUoxetine HCl 20 MG CAPSULE 40 MG PO (08:19)
[2020-11-24] MEDS: Aspirin Enteric Coated 81 MG TABLET.DR PO (08:19)
[2020-11-24] MEDS: amLODIPine Besylate 10 MG TABLET PO (08:19)
[2020-11-24] MEDS: Gabapentin 400 MG CAPSULE PO ×3 (08:19→21:45)
[2020-11-24] MEDS: Pregabalin 100 MG CAPSULE PO ×2 (08:19→21:45)
[2020-11-24] MEDS: traMADoL HCL 50 MG TABLET PO ×4 (08:19→21:45)
[2020-11-24] MEDS: Metoprolol Succinate ER 50 MG TAB.ER.24H PO (08:19)
[2020-11-24 11:07] LABS: Glucose, Whole Blood 230 mg/dL (60-115)
[2020-11-24] MEDS: oxyCODONE HCl Immed Release 5 MG TABLET PO ×2 (11:23→23:13)
[2020-11-24 16:53] LABS: Glucose, Whole Blood 179 mg/dL (60-115)
--- NOTE | 2020-11-24 17:34 | HO.PM.IMPN ---
Subjective Subjective Date of Service: 11/25/20 Interval History: c/o left foot pain otherwise denies sob, no pnd ,no orthopnea,no acute issues overnight. ROS General no headache, no dizziness, no fever chills. CVS no chest pain, no palpitation. Respiratory no cough, no sob. Gastrointestinal no nausea, no vomiting, no abdominal pain,no diarrhea Physical Exam Vital Signs: Vital Signs: Last Vital Signs Temp 97.7 F 11/24/20 15:01 Pulse 95 11/24/20 15:01 Resp 16 11/24/20 15:01 BP 144/59 H 11/24/20 15:01 Pulse Ox 96 11/24/20 15:01 Body Mass Index 49.2 General patient resting comfortably in no acute distress. Neck supple no JVD. CVS regular rate rhythm, Respiratory lungs clear to auscultation, no respiratory distress, no rales Gastrointestinal abdomen soft, nontender, bowel sounds audible, no guarding , no rigidity. Extremities b/l foot edema.left foot no redness no warmth nl ankle exam Neuro nonfocal , speech clear. Skin no rash Objective Data Current Medications Generic Name Dose Route Start Last Admin Trade Name Freq PRN Reason Stop Dose Admin Acetaminophen 650 mg 11/23/20 05:40 Acetaminophen 325 Mg Tablet PO Q6H PRN Pain, Mild (Pain Scale 1-3) Albuterol Sulfate 2 puff 11/23/20 05:40 Albuterol Sulfate 90 Mcg 8 Gm Inhaler INHALE RQID PRN Dyspnea Amlodipine Besylate 10 mg 11/23/20 09:00 11/24/20 08:19 Amlodipine Besylate 10 Mg Tablet PO 10 mg DAILY HI Administration Protocol Aspirin 81 mg 11/23/20 09:00 11/24/20 08:19 Aspirin Enteric Coated 81 Mg Tablet. PO 81 mg DAILY HI Administration Atorvastatin Calcium 10 mg 11/23/20 21:00 11/23/20 20:18 Atorvastatin Calcium 10 Mg Tablet PO 10 mg BEDTIME HI Administration Docusate Sodium 100 mg 11/23/20 05:40 Docusate Sodium 100 Mg Capsule PO DAILY PRN Constipation Enoxaparin Sodium 40 mg 11/23/20 06:00 11/24/20 06:21 Enoxaparin Sodium 40 Mg/0.4 Ml Syringe SUBCUT 40 mg Q24H HI Administration Fluoxetine HCl 40 mg 11/23/20 09:00 11/24/20 08:19 Fluoxetine Hcl 20 Mg Capsule PO 40 mg DAILY HI Administration Fluticasone Propionate 2 puff 11/23/20 08:00 11/24/20 07:54 Fluticasone Propionate 100 Mcg Blst.W.Dev INHALE 2 puff RBID HI Administration Furosemide 40 mg 11/23/20 14:00 11/24/20 13:36 Furosemide 40 Mg/4 Ml Vial IVPUSH 40 mg Q12H HI Administration Protocol Gabapentin 400 mg 11/23/20 09:00 11/24/20 14:45 Gabapentin 400 Mg Capsule PO 400 mg TID HI Administration Insulin Glargine 65 unit 11/23/20 21:00 11/23/20 20:19 Insulin Glargine,Hum.Rec.Anlog 100 Unit/Ml 10 Ml Vial SUBCUT 65 unit BEDTIME HI Administration Insulin Human Lispro 0 unit 11/23/20 07:30 11/24/20 17:03 Insulin Lispro 100 Unit/Ml 3 Ml Vial SUBCUT 2 unit QIDACHS HI Administration Protocol Metoprolol Succinate 50 mg 11/23/20 09:00 11/24/20 08:19 Metoprolol Succinate Er 50 Mg Tab.Er.24h PO 50 mg DAILY HI Administration Protocol Omeprazole 20 mg 11/23/20 06:30 11/24/20 06:20 Omeprazole 20 Mg Capsule.Dr PO 20 mg DAILY@0630 HI Administration Ondansetron HCl 4 mg 11/23/20 05:40 Ondansetron Hcl 4 Mg/2 Ml Vial IVPUSH Q8H PRN Nausea and Vomiting Oxycodone HCl 5 mg 11/23/20 18:22 11/24/20 11:23 Oxycodone Hcl Immed Release 5 Mg Tablet PO 5 mg Q6H PRN Administration Pain, Severe (Pain Scale 7-10) Pregabalin 100 mg 11/23/20 18:25 11/24/20 08:19 Pregabalin 100 Mg Capsule PO 100 mg BID HI Administration Sodium Chloride 3 ml 11/23/20 08:00 11/24/20 15:12 0.9 % Sodium Chloride Flush 3 Ml Syringe IVFLUSH 3 ml QSHIFT HI Administration Tramadol HCl 50 mg 11/23/20 09:00 11/24/20 17:04 Tramadol Hcl 50 Mg Tablet PO 50 mg QID HI Administration Labs CBC & Chem 7: 11/24/20 04:50 11/25/20 05:53 Assessment and Plan (1) CHF exacerbation: Status: Acute (2) Leukocytosis: Status: Acute (3) Diarrhea: Status: Acute (4) Swelling of lower extremity: Status: Acute (5) Left ankle pain: Status: Acute Assessment and Plan: 60-year-old female who presents to the hospital with lower leg swelling,left ankle pain. # left ankle pain Complaining of persistent ankle pain, x-ray showed no fractures, normal examination, continue analgesics, history of fall end of July with right ankle sprain, 2nd fall in September with left ankle injury Recently discharged from rehab facility November 14 and since has difficulty with ambulation, complaining of shooting pain in feet for several months and is on high dose of gabapentin which patient feels is not helping. # acute systolic CHF exacerbation - all symptoms of orthopnea, PND, and dyspnea, resolved lower extremity edema improved,> 3liter neg. Likely due to dietary indiscretion, reports that she eats a lot of canned and frozen foods Change Lasix to po, BNP 131. echocardiogram showed EF 40% and grade 1 diastolic dysfunction, follow BMP # diarrhea No further episodes of diarrhea # leukocytosis possibly secondary to the diarrhea, WBC normalized # diabetes - bs <200 continue home insulin, diabetic diet follow POC q.i.d. a.c. # hypertension stable, continue amlodipine # GERD - continue omeprazole # hyperlipidemia - continue statin DVT prophylaxis: Lovenox
[2020-11-24] MEDS: Furosemide 40 MG TABLET PO (18:21)
[2020-11-24 20:15] LABS: Glucose, Whole Blood 221 mg/dL (60-115)
--- NOTE | 2020-11-24 21:14 | PM.CNNEP ---
History of Present Illness Reason for Consult Consult date: 11/24/20 Reason for consult: CKD Chief Complaint Chief complaint: CHF exacerbation History of Present Illness Narrative: Ask to see PT re CKD and hypervol. Adm c/o WHITE and orhtopnea. Since adm diuresed 3 L and breathing much imporved but now c/o estelita feet pain L > R. past medical history of see history CKD 3, HTN, DM, CHF HLD, depression, asthma Review of Systems Review of Systems Pertinent positives and negatives as stated in HPI 10 point review of systems is otherwise negative. Yes all other systems are reviewed and are negative PMFSH Past Medical History Medical History Asthma delivery delivered Chronic pain Depression Diabetes High cholesterol Hypertension Surgical History Surgical History Hx of cholecystectomy Social History Social History Household Members: None Housing: Apartment Do you presently have visiting nurse or other home services: Yes Alcohol intake: never Smoking Status: Former smoker Years Smoked: 38 Smoked in Last 30 Days: No Smoking Quit Date: 1998 Patient Interested in Nicotine Replacement: No Patient Given Instructions on How to Stop Smoking: No Second Hand Smoke Exposure: No Use of substances other than those prescribed or required for medical reasons: Yes Substance Use Type: Marijuana Substance Use Frequency: Occasionally Last Used Substance: Days (ago) Currently Displaying Signs/Symptoms of Drug Intoxication Withdrawal: No Any prior treatment program specific to substance use: No Have you been hit, kicked, punched, or otherwise hurt by someone within the past year? If so, by whom?: No Do you feel safe in your current relationship?: No Is there a partner from a previous relationship who is making you feel unsafe now?: No Are you made to feel afraid or neglected: No Advance Directives: No Advance Directives Information Provided: No (declined) Advance Directives on File: No Do you have thoughts of harming others: None Do you have a plan to hurt others: No Plan Recently lost weight without trying: No Eating poorly because of decreased appetite: No Nutrition Risks: No Nutritional Risk Patient : No : No Poor oral hygiene: No Meds Allergies Allergy/AdvReac Type Severity Reaction Status Date / Time No Known Allergies Allergy Verified 11/22/20 21:28 acetaminophen [Tylenol] AdvReac Unknown vommiting, Verified 11/22/20 21:28 itching ibuprofen AdvReac Unknown vommiting, Verified 11/22/20 21:28 itching morphine AdvReac Unknown vomiting Verified 11/22/20 21:28 Motrin Allergy Unknown itching Uncoded 09/21/19 00:00 Active Medications: Current Medications Generic Name Dose Route Start Last Admin Trade Name Freq PRN Reason Stop Dose Admin Acetaminophen 650 mg 11/23/20 05:40 Acetaminophen 325 Mg Tablet PO Q6H PRN Pain, Mild (Pain Scale 1-3) Albuterol Sulfate 2 puff 11/23/20 05:40 Albuterol Sulfate 90 Mcg 8 Gm Inhaler INHALE RQID PRN Dyspnea Amlodipine Besylate 10 mg 11/23/20 09:00 11/24/20 08:19 Amlodipine Besylate 10 Mg Tablet PO 10 mg DAILY HI Administration Protocol Aspirin 81 mg 11/23/20 09:00 11/24/20 08:19 Aspirin Enteric Coated 81 Mg Tablet.Dr PO 81 mg DAILY HI Administration Atorvastatin Calcium 10 mg 11/23/20 21:00 11/23/20 20:18 Atorvastatin Calcium 10 Mg Tablet PO 10 mg BEDTIME HI Administration Docusate Sodium 100 mg 11/23/20 05:40 Docusate Sodium 100 Mg Capsule PO DAILY PRN Constipation Enoxaparin Sodium 40 mg 11/23/20 06:00 11/24/20 06:21 Enoxaparin Sodium 40 Mg/0.4 Ml Syringe SUBCUT 40 mg Q24H HI Administration Fluoxetine HCl 40 mg 11/23/20 09:00 11/24/20 08:19 Fluoxetine Hcl 20 Mg Capsule PO 40 mg DAILY HI Administration Fluticasone Propionate 2 puff 11/23/20 08:00 11/24/20 19:56 Fluticasone Propionate 100 Mcg Blst.W.Dev INHALE Not Given RBID [facility] Furosemide 40 mg 11/24/20 18:00 11/24/20 18:21 Furosemide 40 Mg Tablet PO 40 mg BID@0900,1800 [facility] Administration Protocol Gabapentin 400 mg 11/23/20 09:00 11/24/20 14:45 Gabapentin 400 Mg Capsule PO 400 mg TID [facility] Administration Insulin Glargine 65 unit 11/23/20 21:00 11/23/20 20:19 Insulin Glargine,Hum.Rec.Anlog 100 Unit/Ml 10 Ml Vial SUBCUT 65 unit BEDTIME [facility] Administration Insulin Human Lispro 0 unit 11/23/20 07:30 11/24/20 17:03 Insulin Lispro 100 Unit/Ml 3 Ml Vial SUBCUT 2 unit QIDACHS [facility] Administration Protocol Metoprolol Succinate 50 mg 11/23/20 09:00 11/24/20 08:19 Metoprolol Succinate Er 50 Mg Tab.Er.24h PO 50 mg DAILY [facility] Administration Protocol Omeprazole 20 mg 11/23/20 06:30 11/24/20 06:20 Omeprazole 20 Mg Capsule.Dr PO 20 mg DAILY@0630 [facility] Administration Ondansetron HCl 4 mg 11/23/20 05:40 Ondansetron Hcl 4 Mg/2 Ml Vial IVPUSH Q8H PRN Nausea and Vomiting Oxycodone HCl 5 mg 11/23/20 18:22 11/24/20 11:23 Oxycodone Hcl Immed Release 5 Mg Tablet PO 5 mg Q6H PRN Administration Pain, Severe (Pain Scale 7-10) Pregabalin 100 mg 11/23/20 18:25 11/24/20 08:19 Pregabalin 100 Mg Capsule PO 100 mg BID [facility] Administration Sodium Chloride 3 ml 11/23/20 08:00 11/24/20 15:12 0.9 % Sodium Chloride Flush 3 Ml Syringe IVFLUSH 3 ml QSHIFT [facility] Administration Tramadol HCl 50 mg 11/23/20 09:00 11/24/20 17:04 Tramadol Hcl 50 Mg Tablet PO 50 mg QID [facility] Administration Home Medications Medication Instructions Recorded Confirmed Last Taken Type albuterol sulfate [ProAir HFA] 2 puff INHALATION QID PRN 11/23/20 11/23/20 11/22/20 History amlodipine 1 tab PO DAILY 11/23/20 11/23/20 11/22/20 History aspirin 1 tab PO DAILY 11/23/20 11/23/20 11/22/20 History fluoxetine 1 cap PO DAILY 11/23/20 11/23/20 11/22/20 History fluticasone propionate [Flovent 2 puff INHALATION BID 11/23/20 11/23/20 11/22/20 History HFA] furosemide 40 mg PO DAILY 11/23/20 11/23/20 11/22/20 History gabapentin 1 cap PO TID 11/23/20 11/23/20 11/22/20 History insulin glargine [Lantus U-100 65 unit SUBCUT BEDTIME 11/23/20 11/23/20 11/22/20 History Insulin] insulin lispro [Humalog U-100 SUBCUT DIRECTED 11/23/20 11/22/20 History Insulin] metoprolol succinate 1 tab PO DAILY 11/23/20 11/23/20 11/22/20 History omeprazole 1 cap PO DAILY 11/23/20 11/23/20 11/22/20 History simvastatin 1 tab PO BEDTIME 11/23/20 11/23/20 11/22/20 History tramadol 1 tab PO QID 11/23/20 11/23/20 11/22/20 History Physical Exam Vital Signs: Last Vital Signs Temp 97.9 F 11/24/20 19:04 Pulse 91 11/24/20 19:04 Resp 16 11/24/20 19:04 BP 127/70 11/24/20 19:04 Pulse Ox 93 11/24/20 19:04 Body Mass Index 49.2 Const General: cooperative and no acute distress Orientation/consciousness: patient oriented x3 Eyes General: appearance normal, both eyes and all related structures Resp Effort & Inspection: normal respiratory effort and able to speak in complete sentences Cardio Rate: regular rate Rhythm: regular rhythm GI Palpation (GI): Soft to palpation Auscultation: normal bowel sounds Skin General skin exam: no rashes or lesions noted Neuro General: patient oriented x3 Cognition (Neuro): normal cognition Extrem Other: Lower extremity edema bilaterally, no erythema or warmth General: Yes normal to inspection Results Lab Results Result Diagrams: 11/24/20 04:50 11/24/20 04:50 Lab results: Chemistry 11/22/20 11/24/20 23:52 04:50 Sodium 141 141 Potassium 5.3 H 4.7 Carbon Dioxide 24 26 BUN 47 H 46 H Creatinine 1.41 H 1.38 Calcium 8.2 L 8.4 Hematology 11/22/20 11/24/20 23:52 04:50 WBC 13.4 H 9.9 Hgb 9.3 L 9.5 L Plt Count 209 201 Urinalysis 11/22/20 23:44 Urine Color YELLOW Urine Appearance CLEAR Urine pH 5.5 Ur Specific [place] 1.020 Urine Protein NEG Urine Glucose (UA) NEG Urine Ketones NEG Urine Blood NEG Urine Nitrite NEG Ur Leukocyte Esterase NEG Assessment and Plan (1) CHF exacerbation: Status: Acute (2) Leukocytosis: Status: Acute (3) Diarrhea: Status: Acute (4) Swelling of lower extremity: Status: Acute (5) Left ankle pain: Status: Acute 60-year-old female who presents to the hospital with lower leg swelling,left ankle pain. 1. CKD 3: bsl SCr 1.2-1.5 range, msot c/w DN; r/o dysproteinemia given anemai and CKD 2. TBFOL: imporved w diuresis 3. Anemia 4 Foot pain: ques gout vs neuropathy REC: rosie diuresis; check UAL; check Serum IF will follwo with team
[2020-11-24] MEDS: Atorvastatin Calcium 10 MG TABLET PO (21:44)
[2020-11-24] MEDS: Insulin Glargine,Hum.rec.anlog 100 UNIT/ML 10 ML VIAL 65 UNIT SUBCUT (21:46)
[2020-11-25] VITALS (9 sets, daily range): BP systolic 99–150; BP diastolic 42–81; PULSE 79–98; RESP 14–20; TEMP 36.2–36.7; O2SAT 94–96; BMI 19.8
[2020-11-25] MEDS: Omeprazole 20 MG CAPSULE.DR PO (06:15)
[2020-11-25] MEDS: Enoxaparin Sodium 40 MG/0.4 ML SYRINGE SUBCUT (06:15)
[2020-11-25 06:40] LABS: Anion Gap 13 (12-20); Blood Urea Nitrogen 54 mg/dL (9-16); Calcium 8.5 mg/dL (8.4-10.2); Carbon Dioxide 29 mmol/L (22-29); Chloride 104 mmol/L (96-108); Creatinine Clr Calc Pharmacy 29.8; Estimated Glomerular Filt Rate 33; Glucose Random 224 mg/dL (60-115); Potassium 4.6 mmol/L (3.3-5.1); Sodium 141 mmol/L (135-145)
[2020-11-25 06:42] LABS: B Type Natriuretic Peptide 98 pg/mL (<100)
[2020-11-25 07:19] LABS: Glucose, Whole Blood 199 mg/dL (60-115)
[2020-11-25] MEDS: 0.9 % Sodium Chloride Flush 3 ML SYRINGE IVFLUSH ×2 (07:33→21:14)
[2020-11-25] MEDS: Insulin Lispro 100 UNIT/ML 3 ML VIAL SUBCUT ×4 (07:33→21:14)
[2020-11-25] MEDS: Fluticasone Propionate 100 MCG BLST.W.DEV 2 PUFF INHALE ×2 (07:56→20:12)
[2020-11-25] MEDS: Pregabalin 100 MG CAPSULE PO ×2 (08:35→21:13)
[2020-11-25] MEDS: Gabapentin 400 MG CAPSULE PO ×3 (08:35→21:13)
[2020-11-25] MEDS: FLUoxetine HCl 20 MG CAPSULE 40 MG PO (08:35)
[2020-11-25] MEDS: traMADoL HCL 50 MG TABLET PO ×3 (08:35→18:09)
[2020-11-25] MEDS: Aspirin Enteric Coated 81 MG TABLET.DR PO (08:36)
[2020-11-25] MEDS: Metoprolol Succinate ER 50 MG TAB.ER.24H PO (08:43)
[2020-11-25] MEDS: amLODIPine Besylate 10 MG TABLET PO (08:43)
--- NOTE | 2020-11-25 08:58 | PM.PNNEP ---
Subjective Subjective Date of Service: 11/25/20 Interval history: Seen and examiend. Cont wth estelita ankle pain Physical Exam Vital Signs: Vital Signs: Last Vital Signs Temp 97.5 F 11/25/20 07:41 Pulse 97 11/25/20 08:43 Resp 14 11/25/20 07:41 BP 130/70 11/25/20 08:43 Pulse Ox 94 11/25/20 07:41 Body Mass Index 19.8 Const: General: cooperative and no acute distress Orientation/consciousness: patient oriented x3 Eyes: General: appearance normal, both eyes and all related structures Resp: Effort & Inspection: normal respiratory effort and able to speak in complete sentences Cardio: Rate: regular rate Rhythm: regular rhythm GI: Palpation (GI): Soft to palpation Auscultation: normal bowel sounds Skin: General skin exam: no rashes or lesions noted Neuro: General: patient oriented x3 Cognition (Neuro): normal cognition Extrem: Other: Lower extremity edema bilaterally, no erythema or warmth General: Yes normal to inspection Objective Data Labs CBC & Chem 7: 11/24/20 04:50 11/25/20 05:53 Labs: Laboratory Results - last 24 hr 11/24/20 11/24/20 11/24/20 11:03 16:46 20:12 Sodium Potassium Chloride Carbon Dioxide Anion Gap BUN Creatinine Estim Creat Clear Calc Estimated GFR POC Glucose 230 H 179 H 221 H Random Glucose Calcium B-Natriuretic Peptide 11/25/20 11/25/20 11/25/20 05:53 05:53 06:55 Sodium 141 Potassium 4.6 Chloride 104 Carbon Dioxide 29 Anion Gap 13 BUN 54 H Creatinine 1.58 H Estim Creat Clear Calc 29.8 Estimated GFR 33 POC Glucose 199 H Random Glucose 224 H Calcium 8.5 B-Natriuretic Peptide 98 Assessment & Plan Assessment and plan (1) CHF exacerbation: Status: Acute (2) Leukocytosis: Status: Acute (3) Diarrhea: Status: Acute (4) Swelling of lower extremity: Status: Acute (5) Left ankle pain: Status: Acute Assessment and Plan: 60-year-old female who presents to the hospital with lower leg swelling,left ankle pain. 1. CKD 3: bsl SCr 1.2-1.5 range, msot c/w DN; r/o dysproteinemia given anemai and CKD 2. TBFOL: imporved w diuresis 3. Anemia 4 Foot pain: ques gout vs neuropathy REC: cont maintenence diuretics torsemide 20 qd; check UAL; check Serum IF...ordered)( anaya) will follwo with team Time Spent With Patient Time: Total time spent is greater than 50% in coordination of care (as documented) at patient's floor/unit and/or counseling patient:
[2020-11-25 11:11] LABS: Glucose, Whole Blood 215 mg/dL (60-115)
--- NOTE | 2020-11-25 13:33 | P.PNIM_ITS ---
Subjective Subjective Date of Service: 11/25/20 Interval History: c/o left foot pain, denies sob, no pnd ,no orthopnea,no acute issues overnight. ROS General no headache, no dizziness, no fever chills. CVS no chest pain, no palpitation. Respiratory no cough, no sob. Gastrointestinal no nausea, no vomiting, no abdominal pain,no diarrhea Physical Exam Vital Signs: Vital Signs: Last Vital Signs Temp 97.7 F 11/25/20 12:00 Pulse 98 11/25/20 12:00 Resp 20 11/25/20 12:00 BP 99/42 L 11/25/20 12:00 Pulse Ox 95 11/25/20 12:00 Body Mass Index 19.8 General patient resting comfortably no acute distress. Neck supple no JVD. CVS regular rate rhythm, Respiratory lungs clear to auscultation, no respiratory distress, no rales Gastrointestinal abdomen soft, nontender, bowel sounds audible, no guarding , no rigidity. Extremities b/l foot edema.left foot no redness, no warmth nl ankle exam Neuro nonfocal , speech clear. Skin no rash Objective Data Current Medications Generic Name Dose Route Start Last Admin Trade Name Freq PRN Reason Stop Dose Admin Acetaminophen 650 mg 11/23/20 05:40 Acetaminophen 325 Mg Tablet PO Q6H PRN Pain, Mild (Pain Scale 1-3) Albuterol Sulfate 2 puff 11/23/20 05:40 Albuterol Sulfate 90 Mcg 8 Gm Inhaler INHALE RQID PRN Dyspnea Amlodipine Besylate 10 mg 11/23/20 09:00 11/25/20 08:43 Amlodipine Besylate 10 Mg Tablet PO 10 mg DAILY HI Administration Protocol Aspirin 81 mg 11/23/20 09:00 11/25/20 08:36 Aspirin Enteric Coated 81 Mg Tablet. PO 81 mg DAILY HI Administration Atorvastatin Calcium 10 mg 11/23/20 21:00 11/24/20 21:44 Atorvastatin Calcium 10 Mg Tablet PO 10 mg BEDTIME HI Administration Docusate Sodium 100 mg 11/23/20 05:40 Docusate Sodium 100 Mg Capsule PO DAILY PRN Constipation Enoxaparin Sodium 40 mg 11/23/20 06:00 11/25/20 06:15 Enoxaparin Sodium 40 Mg/0.4 Ml Syringe SUBCUT 40 mg Q24H [facility] Administration Fluoxetine HCl 40 mg 11/23/20 09:00 11/25/20 08:35 Fluoxetine Hcl 20 Mg Capsule PO 40 mg DAILY HI Administration Fluticasone Propionate 2 puff 11/23/20 08:00 11/25/20 07:56 Fluticasone Propionate 100 Mcg Blst.W.Dev INHALE 2 puff RBID [facility] Administration Gabapentin 400 mg 11/23/20 09:00 11/25/20 08:35 Gabapentin 400 Mg Capsule PO 400 mg TID [facility] Administration Insulin Glargine 65 unit 11/23/20 21:00 11/24/20 21:46 Insulin Glargine,Hum.Rec.Anlog 100 Unit/Ml 10 Ml Vial SUBCUT 65 unit BEDTIME [facility] Administration Insulin Human Lispro 0 unit 11/23/20 07:30 11/25/20 11:38 Insulin Lispro 100 Unit/Ml 3 Ml Vial SUBCUT 4 unit QIDACHS [facility] Administration Protocol Metoprolol Succinate 50 mg 11/23/20 09:00 11/25/20 08:43 Metoprolol Succinate Er 50 Mg Tab.Er.24h PO 50 mg DAILY [facility] Administration Protocol Omeprazole 20 mg 11/23/20 06:30 11/25/20 06:15 Omeprazole 20 Mg Capsule. PO 20 mg DAILY@0630 [facility] Administration Ondansetron HCl 4 mg 11/23/20 05:40 Ondansetron Hcl 4 Mg/2 Ml Vial IVPUSH Q8H PRN Nausea and Vomiting Oxycodone HCl 5 mg 11/23/20 18:22 11/24/20 23:13 Oxycodone Hcl Immed Release 5 Mg Tablet PO 5 mg Q6H PRN Administration Pain, Severe (Pain Scale 7-10) Pregabalin 100 mg 11/23/20 18:25 11/25/20 08:35 Pregabalin 100 Mg Capsule PO 100 mg BID HI Administration Sodium Chloride 3 ml 11/23/20 08:00 11/25/20 07:33 0.9 % Sodium Chloride Flush 3 Ml Syringe IVFLUSH 3 ml QSHIFT [facility] Administration Tramadol HCl 50 mg 11/23/20 09:00 11/25/20 12:21 Tramadol Hcl 50 Mg Tablet PO 50 mg QID [facility] Administration Labs CBC & Chem 7: 11/24/20 04:50 11/25/20 05:53 Assessment and Plan (1) CHF exacerbation: Status: Acute (2) Left ankle pain: Status: Acute (3) Swelling of lower extremity: Status: Acute (4) Leukocytosis: Status: Acute (5) Diarrhea: Status: Acute (6) FELICIA (acute kidney injury): Status: Acute Assessment and Plan: 60-year-old female who presents to the hospital with lower leg swelling,left ankle pain. # left ankle pain Complaining of persistent left ankle pain, x-ray showed no fractures, normal examination, history of fall end of July with right ankle sprain, 2nd fall in September with left ankle injury Recently discharged from rehab facility November 14 and since has dif ficulty with ambulation, complaining of shooting pain in feet for several months and is on high dose of gabapentin with no relief of symtoms,will obtain PT eval pt wishes to return to rehab. On Lyrica, tramadol and gabapentin. # acute systolic CHF exacerbation - all symptoms of orthopnea, PND, and dyspnea, resolved, lower extremity edema improved,> 3liter neg. Likely due to dietary indiscretion, reports that she eats a lot of canned and frozen foods creat trending up/low bp likely overdiuresed hold Lasix BNP 131 to 98.give 500 ml iv fluids. echocardiogram showed EF 40% and grade 1 diastolic dysfunction, follow BMP # FELICIA likely due to overdiuresis hold diuretics give IVF follow bmp # diarrhea No further episodes of diarrhea. # leukocytosis possibly secondary to the diarrhea, WBC normalized. # diabetes - bs <200 continue home insulin, diabetic diet follow POC q.i.d. a.c. # hypertension low bp ,hold lasix, continue amlodipine and metoprolol. # GERD - continue omeprazole # hyperlipidemia - continue statin DVT prophylaxis: Lovenox
[2020-11-25] MEDS: 0.9 % Sodium Chloride 500 ML 50 ML IV (14:02)
[2020-11-25 16:31] LABS: Glucose, Whole Blood 199 mg/dL (60-115)
[2020-11-25 20:45] LABS: Glucose, Whole Blood 285 mg/dL (60-115)
[2020-11-25] MEDS: Insulin Glargine,Hum.rec.anlog 100 UNIT/ML 10 ML VIAL 65 UNIT SUBCUT (21:13)
[2020-11-25] MEDS: Atorvastatin Calcium 10 MG TABLET PO (21:13)
[2020-11-26] VITALS (7 sets, daily range): BP systolic 114–149; BP diastolic 56–72; PULSE 82–97; RESP 19–20; TEMP 36.2–36.7; O2SAT 92–95; BMI 49.8
[2020-11-26] MEDS: Omeprazole 20 MG CAPSULE.DR PO (05:38)
[2020-11-26] MEDS: Enoxaparin Sodium 40 MG/0.4 ML SYRINGE SUBCUT (05:38)
[2020-11-26 06:50] LABS: Anion Gap 15 (12-20); Blood Urea Nitrogen 70 mg/dL (9-16); Calcium 8.4 mg/dL (8.4-10.2); Carbon Dioxide 27 mmol/L (22-29); Chloride 101 mmol/L (96-108); Creatinine Clr Calc Pharmacy 41.9; Estimated Glomerular Filt Rate 29; Glucose Random 234 mg/dL (60-115); Potassium 5.2 mmol/L (3.3-5.1); Sodium 138 mmol/L (135-145)
[2020-11-26 07:43] LABS: Glucose, Whole Blood 215 mg/dL (60-115)
[2020-11-26] MEDS: Fluticasone Propionate 100 MCG BLST.W.DEV 2 PUFF INHALE (07:49)
[2020-11-26] MEDS: Insulin Lispro 100 UNIT/ML 3 ML VIAL SUBCUT ×4 (08:11→21:05)
[2020-11-26] MEDS: Aspirin Enteric Coated 81 MG TABLET.DR PO (08:12)
[2020-11-26] MEDS: 0.9 % Sodium Chloride Flush 3 ML SYRINGE IVFLUSH ×3 (08:12→21:06)
[2020-11-26] MEDS: Pregabalin 100 MG CAPSULE PO (08:12)
[2020-11-26] MEDS: FLUoxetine HCl 20 MG CAPSULE 40 MG PO (08:12)
[2020-11-26] MEDS: amLODIPine Besylate 10 MG TABLET PO (08:12)
[2020-11-26] MEDS: Metoprolol Succinate ER 50 MG TAB.ER.24H PO (08:12)
[2020-11-26] MEDS: Gabapentin 400 MG CAPSULE PO ×2 (08:12→15:05)
[2020-11-26] MEDS: traMADoL HCL 50 MG TABLET PO (08:30)
--- NOTE | 2020-11-26 09:24 | P.CDIC_ITS ---
CDI Concurrent Query Service Date: 11/26/20 Documentation Clarification: Please clarify if you are treating a proba ble/suspected/likely or confirmed: Morbid Obesity Other, please specify if known Provider Response: Morbid Obesity PLEASE DO NOT DELETE/MODIFY EXISTING CONTENT Additional information is needed in order to code to the highest accuracy and appropriate Severity of Illness (SOI). Please clarify the information noted below in your progress notes and discharge summary. Risk Factors/Clinical Indicators/Treatments 60 year old female admitted with Acute Systolic CHF Exacerbation HT 5'2 WT 123.5 KG BMI 49.8 CDS: Lisa Marvin RN Contact Number: [phone] Please Review the information above and exercise your independent professional judgment in responding to the query. If you concur, pleas document in the PROGRESS NOTES and DISCHARGE SUMMARY. If you do not agree with the query, please document in the query above. THIS QUERY IS PART OF THE PERMANENT MEDICAL RECORD
--- NOTE | 2020-11-26 11:28 | PM.PNNEP ---
Subjective Subjective Date of Service: 11/26/20 Interval history: Events noted Physical Exam Vital Signs: Vital Signs: Last Vital Signs Temp 97.2 F 11/26/20 08:00 Pulse 91 11/26/20 09:01 Resp 19 11/26/20 08:00 BP 146/69 H 11/26/20 09:01 Pulse Ox 92 11/26/20 09:01 Body Mass Index 49.8 Const: General: awake Neck: Neck: Yes supple Resp: Auscultation: rhonchi Neuro: Motor exam (neuro): no asterixis Objective Data Labs CBC & Chem 7: 11/24/20 04:50 11/26/20 05:54 Labs: Laboratory Results - last 24 hr 11/25/20 11/25/20 11/26/20 16:18 20:38 05:54 Sodium 138 Potassium 5.2 H Chloride 101 Carbon Dioxide 27 Anion Gap 15 BUN 70 H Creatinine 1.81 H Estim Creat Clear Calc 41.9 Estimated GFR 29 POC Glucose 199 H 285 H Random Glucose 234 H Calcium 8.4 11/26/20 07:33 Sodium Potassium Chloride Carbon Dioxide Anion Gap BUN Creatinine Estim Creat Clear Calc Estimated GFR POC Glucose 215 H Random Glucose Calcium Assessment & Plan Assessment and plan (1) FELICIA (acute kidney injury): Problem details: 60-year-old female who presents to the hospital with lower leg swelling,left ankle pain. 1. CKD 3: bsl SCr 1.2-1.5 range, most c/w DN; r/o dysproteinemia given anemia and CKD 2. TBFOL: improved w diuresis 3. Anemia 4 Foot pain: ques gout vs neuropathy Mild hyperkalmeia today REC: cont maintenence diuretics torsemide 20 qd; check UAL; check Serum IF...ordered) Watch K And KAyexalate x 1 dose Status: Acute Time Spent With Patient Time: Total time spent is greater than 50% in coordination of care (as documented) at patient's floor/unit and/or counseling patient:
[2020-11-26 11:32] LABS: Glucose, Whole Blood 216 mg/dL (60-115)
[2020-11-26 13:35] LABS: Creatinine Urine 88.41 mg/dL; Microalbum/Creatinine Ratio Ur 50.8 ug/mg cr
[2020-11-26 14:32] LABS: IgA 230 mg/dL (47-310); IgG 1022 mg/dL (600-1640); IgM 185 mg/dL (50-300)
--- NOTE | 2020-11-26 15:43 | HO.PM.IMPN ---
Subjective Subjective Date of Service: 11/26/20 Interval History: leg swelling + dyspnea improved c/o severe bilateral foot pain limiting mobility Physical Exam Vital Signs: Vital Signs: Last Vital Signs Temp 97.8 F 11/26/20 11:50 Pulse 85 11/26/20 11:50 Resp 20 11/26/20 11:50 BP 114/68 11/26/20 11:50 Pulse Ox 93 11/26/20 11:50 Body Mass Index 49.8 Gen: in no acute distress HEENT: sclera anicteric, moist mucus membranes Neck: supple Lungs: clear to auscultation bilaterally Heart: regular rate and rhythm, no murmurs Abd: soft, non-tender, morbidly obese Ext: no edema Skin: warm/well-perfused Neuro: alert and oriented x3, no focal findings Psych: appropriate affect Objective Data Current Medications Generic Name Dose Route Start Last Admin Trade Name Freq PRN Reason Stop Dose Admin Acetaminophen 650 mg 11/23/20 05:40 Acetaminophen 325 Mg Tablet PO Q6H PRN Pain, Mild (Pain Scale 1-3) Albuterol Sulfate 2 puff 11/23/20 05:40 Albuterol Sulfate 90 Mcg 8 Gm Inhaler INHALE RQID PRN Dyspnea Amlodipine Besylate 10 mg 11/23/20 09:00 11/26/20 08:12 Amlodipine Besylate 10 Mg Tablet PO 10 mg DAILY HI Administration Protocol Aspirin 81 mg 11/23/20 09:00 11/26/20 08:12 Aspirin Enteric Coated 81 Mg Tablet.Dr PO 81 mg DAILY HI Administration Atorvastatin Calcium 10 mg 11/23/20 21:00 11/25/20 21:13 Atorvastatin Calcium 10 Mg Tablet PO 10 mg BEDTIME HI Administration Docusate Sodium 100 mg 11/23/20 05:40 Docusate Sodium 100 Mg Capsule PO DAILY PRN Constipation Enoxaparin Sodium 40 mg 11/23/20 06:00 11/26/20 05:38 Enoxaparin Sodium 40 Mg/0.4 Ml Syringe SUBCUT 40 mg Q24H HI Administration Fluoxetine HCl 40 mg 11/23/20 09:00 11/26/20 08:12 Fluoxetine Hcl 20 Mg Capsule PO 40 mg DAILY HI Administration Fluticasone Propionate 2 puff 11/23/20 08:00 11/26/20 07:49 Fluticasone Propionate 100 Mcg Blst.W.Dev INHALE 2 puff RBID ON [facility] OF [facility] Administration Insulin Glargine 65 unit 11/23/20 21:00 11/25/20 21:13 Insulin Glargine,Hum.Rec.Anlog 100 Unit/Ml 10 Ml Vial SUBCUT 65 unit BEDTIME [facility] OF [facility] Administration Insulin Human Lispro 0 unit 11/23/20 07:30 11/26/20 11:42 Insulin Lispro 100 Unit/Ml 3 Ml Vial SUBCUT 4 unit QIDACHS ON [facility] OF [facility] Administration Protocol Metoprolol Succinate 50 mg 11/23/20 09:00 11/26/20 08:12 Metoprolol Succinate Er 50 Mg Tab.Er.24h PO 50 mg DAILY [facility] Administration Protocol Omeprazole 20 mg 11/23/20 06:30 11/26/20 05:38 Omeprazole 20 Mg Capsule.Dr PO 20 mg DAILY@0630 [facility] Administration Ondansetron HCl 4 mg 11/23/20 05:40 Ondansetron Hcl 4 Mg/2 Ml Vial IVPUSH Q8H PRN Nausea and Vomiting Oxycodone HCl 5 mg 11/23/20 18:22 11/24/20 23:13 Oxycodone Hcl Immed Release 5 Mg Tablet PO 5 mg Q6H PRN Administration Pain, Severe (Pain Scale 7-10) Pregabalin 150 mg 11/26/20 21:00 Pregabalin 100 Mg Capsule PO BID [facility] OF [facility] Sodium Chloride 3 ml 11/23/20 08:00 11/26/20 15:05 0.9 % Sodium Chloride Flush 3 Ml Syringe IVFLUSH 3 ml QSHIFT [facility] Administration Tramadol HCl 50 mg 11/25/20 13:45 11/26/20 08:30 Tramadol Hcl 50 Mg Tablet PO 50 mg QID PRN Administration pain Labs CBC & Chem 7: 11/24/20 04:50 11/26/20 05:54 Labs: Laboratory Results - last 24 hr 11/25/20 11/25/20 11/25/20 05:53 16:18 20:38 Sodium Potassium Chloride Carbon Dioxide Anion Gap BUN Creatinine Estim Creat Clear Calc Estimated GFR POC Glucose 199 H 285 H Random Glucose Calcium Urine Creatinine Urine Microalbumin Microalb/Creat Ratio IgG Total 1022 IgA Total 230 IgM 185 ALEXANDRE Interpretation SEE NOTE 11/26/20 11/26/20 11/26/20 05:54 07:33 11:14 Sodium 138 Potassium 5.2 H Chloride 101 Carbon Dioxide 27 Anion Gap 15 BUN 70 H Creatinine 1.81 H Estim Creat Clear Calc 41.9 Estimated GFR 29 POC Glucose 215 H 216 H Random Glucose 234 H Calcium 8.4 Urine Creatinine Urine Microalbumin Microalb/Creat Ratio IgG Total IgA Total IgM ALEXANDRE Interpretation 11/26/20 12:47 Sodium Potassium Chloride Carbon Dioxide Anion Gap BUN Creatinine Estim Creat Clear Calc Estimated GFR POC Glucose Random Glucose Calcium Urine Creatinine 88.41 Urine Microalbumin 45.0 Microalb/Creat Ratio 50.8 IgG Total IgA Total IgM ALEXANDRE Interpretation TTE 11/23/20 - The left ventricular systolic function is mild to moderately decreased. The visually estimated ejection fraction is between 40-45%. - There is moderate mitral annular calcificati Assessment and Plan (1) CHF exacerbation: Status: Acute (2) Left ankle pain: Status: Acute (3) Swelling of lower extremity: Status: Acute (4) Leukocytosis: Status: Acute (5) Diarrhea: Status: Acute (6) FELICIA (acute kidney injury): Status: Acute Assessment and Plan: hospital d#4 60yo F with DM2, CHF, morbid obesity admitted for CHF exacerbation complicated by FELICIA # FELICIA - likely due to overdiuresis- held; follow BMP # hyperK - mild, give 1 dose SPS and recheck BMp in am # acute/chronic HFrEF - diuresed total 3L negative this admission - likely triggered by dietary indiscretion - continue b-zac # diabetic neuropathy - will d/c gabapentin and increase pregabalin- should not be on both agents; continue tramadol # HTN - continue amlodipine + metoprolol # diarrhea # leukocytosis - resolved # morbid obesity - consider outpt bariatrics referral # DM2 - basal/bolus insulin # GERD - continue omeprazole # hyperlipidemia - continue statin # VTE ppx - LMWH # dispo - STR pending improvement in renal function
[2020-11-26 16:29] LABS: Glucose, Whole Blood 232 mg/dL (60-115)
[2020-11-26] MEDS: Sodium Polystyrene Sulfon/Sorb 15 GM/60 ML ORAL.SUSP PO (16:32)
[2020-11-26 20:41] LABS: Glucose, Whole Blood 235 mg/dL (60-115)
[2020-11-26] MEDS: Atorvastatin Calcium 10 MG TABLET PO (21:05)
[2020-11-26] MEDS: Pregabalin 150 MG CAPSULE PO (21:05)
[2020-11-26] MEDS: Insulin Glargine,Hum.rec.anlog 100 UNIT/ML 10 ML VIAL 65 UNIT SUBCUT (21:05)
[2020-11-27] MEDS: traMADoL HCL 50 MG TABLET PO (02:24)
[2020-11-27 04:00] VITALS: BP 148/67; PULSE 88; RESP 20; TEMP 36.4; O2SAT 95
[2020-11-27 05:52] VITALS: BMI 49.6
[2020-11-27] MEDS: Omeprazole 20 MG CAPSULE.DR PO (06:27)
[2020-11-27] MEDS: Enoxaparin Sodium 40 MG/0.4 ML SYRINGE SUBCUT (06:27)
[2020-11-27 06:55] LABS: Anion Gap 15 (12-20); Blood Urea Nitrogen 76 mg/dL (9-16); Calcium 8.2 mg/dL (8.4-10.2); Carbon Dioxide 27 mmol/L (22-29); Chloride 104 mmol/L (96-108); Creatinine Clr Calc Pharmacy 51.9; Estimated Glomerular Filt Rate 37; Glucose Random 235 mg/dL (60-115); Potassium 4.8 mmol/L (3.3-5.1); Sodium 141 mmol/L (135-145)
[2020-11-27 07:01] LABS: B Type Natriuretic Peptide 117 pg/mL (<100)
[2020-11-27 07:26] VITALS: BP 127/63; PULSE 87; RESP 19; TEMP 36.2; O2SAT 94
[2020-11-27 07:38] LABS: Glucose, Whole Blood 225 mg/dL (60-115)
[2020-11-27] MEDS: Insulin Lispro 100 UNIT/ML 3 ML VIAL SUBCUT ×2 (07:45→11:52)
[2020-11-27] MEDS: Aspirin Enteric Coated 81 MG TABLET.DR PO (07:46)
[2020-11-27] MEDS: Pregabalin 150 MG CAPSULE PO (07:46)
[2020-11-27] MEDS: Metoprolol Succinate ER 50 MG TAB.ER.24H PO (07:46)
[2020-11-27] MEDS: 0.9 % Sodium Chloride Flush 3 ML SYRINGE IVFLUSH (07:46)
[2020-11-27] MEDS: amLODIPine Besylate 10 MG TABLET PO (07:46)
[2020-11-27] MEDS: FLUoxetine HCl 20 MG CAPSULE 40 MG PO (07:46)
--- NOTE | 2020-11-27 09:48 | PM.PNNEP ---
Subjective Subjective Date of Service: 11/27/20 Interval history: leg swelling + dyspnea improved c/o severe bilateral foot pain limiting mobility Physical Exam Vital Signs: Vital Signs: Last Vital Signs Temp 97.1 F 11/27/20 07:26 Pulse 87 11/27/20 07:26 Resp 19 11/27/20 07:26 BP 127/63 11/27/20 07:26 Pulse Ox 94 11/27/20 07:26 Body Mass Index 49.6 Const: General: awake Neck: Neck: Yes supple Resp: Auscultation: rhonchi Neuro: Motor exam (neuro): no asterixis Objective Data Labs CBC & Chem 7: 11/24/20 04:50 11/27/20 05:26 Labs: Laboratory Results - last 24 hr 11/25/20 11/26/20 11/26/20 05:53 11:14 12:47 Sodium Potassium Chloride Carbon Dioxide Anion Gap BUN Creatinine Estim Creat Clear Calc Estimated GFR POC Glucose 216 H Random Glucose Calcium B-Natriuretic Peptide Urine Creatinine 88.41 Urine Microalbumin 45.0 Microalb/Creat Ratio 50.8 IgG Total 1022 IgA Total 230 IgM 185 ALEXANDRE Interpretation SEE NOTE 11/26/20 11/26/20 11/27/20 16:25 20:19 05:26 Sodium 141 Potassium 4.8 Chloride 104 Carbon Dioxide 27 Anion Gap 15 BUN 76 H Creatinine 1.46 H Estim Creat Clear Calc 51.9 Estimated GFR 37 POC Glucose 232 H 235 H Random Glucose 235 H Calcium 8.2 L B-Natriuretic Peptide Urine Creatinine Urine Microalbumin Microalb/Creat Ratio IgG Total IgA Total IgM ALEXANDRE Interpretation 11/27/20 11/27/20 05:26 07:24 Sodium Potassium Chloride Carbon Dioxide Anion Gap BUN Creatinine Estim Creat Clear Calc Estimated GFR POC Glucose 225 H Random Glucose Calcium B-Natriuretic Peptide 117 H Urine Creatinine Urine Microalbumin Microalb/Creat Ratio IgG Total IgA Total IgM ALEXANDRE Interpretation Assessment & Plan Assessment and plan (1) FELICIA (acute kidney injury): Status: Acute Assessment and Plan: 1. CKD 3: bsl SCr 1.2-1.5 range, most c/w DN; r/o dysproteinemia given anemia and CKD 2. TBFOL: improved w diuresis 3. Anemia 4 Foot pain: ques gout vs neuropathy Mild hyperkalmeia- corrected REC: cont maintenence diuretics torsemide; Creatinine is better check Serum IF...ordered) Time Spent With Patient Time: Total time spent is greater than 50% in coordination of care (as documented) at patient's floor/unit and/or counseling patient:
[2020-11-27 10:40] LABS: OBS Int Ctl Valid YES; OBS1 NEGATIVE (NEGATIVE)
[2020-11-27 11:25] LABS: Glucose, Whole Blood 300 mg/dL (60-115)
[2020-11-27 11:36] VITALS: BP 134/74; PULSE 77; RESP 20; TEMP 36.3; O2SAT 93
[2020-11-27 11:46] LABS: CDIFF Ag Negative (Negative); CDIFF Internal ctrl Dots and bkg OK (V); CDiff Toxin Negative (Negative)
[2020-11-27 12:21] LABS: IDNOW Serial# 08D9AD1C
[2020-11-27 12:22] LABS: COVID-19 Test Negative (Negative)
--- NOTE | 2020-11-27 12:44 | MHC.CM.PN ---
nurse healthcare risk control consultant note electronic medical record reviewed along with case discussed with staff nurse and the hospitalist on multiple disciplinary rounds , requested rapid covid test to be done and order for anticipated length of stay less than 30 days met with patient she is glad that the senior care facility is in the [facility]. discharge plan [facility] for short term rehab . mds and mass paperwork completed and faxed over to [facility] skilled nursinf financial pavement .m,will aLSO FAX THEM THE DISCHARGE SUMMARY REQUEST . [facility]SP[facility] PATIENT HAD BEEN ACTIVE WITH [facility] , CALLED TO DAMIAN AT [facility] INFORMED HER OF THE DISCHARGE TODAY TO THE [facility] AND ASKED THEM TO CONTINUE TO FOLLOW SHE REQUESTED COPY OF THE D/C SUMMARY BE Fxed to her at [phone] patient completed a new health care proxy today naming her daughter srinivasa loja as her agent , original and four copies given to her one placed in the hard cover chRT AND THE NOTHE UPLOADED TO [employer]
--- NOTE | 2020-11-27 12:46 | P.DS_ITS ---
DS: Providers Provider Date of Service: 11/27/20 Date of admission: 11/23/20 05:13 Primary care physician: Tavo Huber MD Consults: 11/23/20 06:38 Consult Respiratory Therapy Routine Reason for consultation: sleep apnea 11/23/20 08:36 Consult to Nephrology Routine Consulting Provider: Jesus Gilbert Reason for consultation: Felicia Has provider been notified: No DS: Diagnosis Discharge Diagnosis (1) FELICIA (acute kidney injury): Status: Acute (2) CHF exacerbation: Status: Acute (3) Acute on chronic HFrEF (heart failure with reduced ejection fraction): Status: Acute (4) Diabetic neuropathy, painful: Status: Acute (5) Morbid obesity: Status: Acute (6) Hyperkalemia: Status: Acute DS: Medications Discharge Medications Home Medications: Home Medications Medication Instructions Recorded Confirmed Flovent HFA 2 puff INHALATION BID 11/23/20 11/23/20 Lantus U-100 Insulin 65 unit SUBCUT BEDTIME 11/23/20 11/23/20 albuterol sulfate [ProAir HFA] 2 puff INHALATION QID PRN 11/23/20 11/23/20 amlodipine 1 tab PO DAILY 11/23/20 11/23/20 aspirin 1 tab PO DAILY 11/23/20 11/23/20 fluoxetine 1 cap PO DAILY 11/23/20 11/23/20 furosemide 40 mg PO DAILY 11/23/20 11/23/20 insulin lispro [Humalog U-100 SUBCUT DIRECTED 11/23/20 Insulin] metoprolol succinate 1 tab PO DAILY 11/23/20 11/23/20 omeprazole 1 cap PO DAILY 11/23/20 11/23/20 simvastatin 1 tab PO BEDTIME 11/23/20 11/23/20 tramadol 1 tab PO QID 11/23/20 11/23/20 Previous Rx's Medication Instructions Recorded pregabalin [Lyrica] 150 mg PO BID #60 cap 11/27/20 DS: Summary Hospital Course Hospital Course: from admission H+P by hospitalist Bhargav Atkins, 11/23/20: 60-year-old female with past medical history of see history HTN, DM, CHF HLD, depression, asthma, who presents to the hospital with complaints leg swelling. Patient reports that her leg swelling been going on for past 2 weeks with worsening. She also has dyspnea, no cough or sputum production, no fever or chills. She is also complaining of orthopnea, PND. She has diarrhea for the past 2 days, watery today constant smelly nonbloody. She denies any abdominal pain nausea or vomiting. No chest pain or palpitations, no headache or change in vision, no urinary symptoms and no fever chills. She reports that she got discharged from rehab on 11/14 after fracturing her ankle. On arrival to the hospital patient's vitals are significant for a temp of 99.2?, heart rate of 105, respiratory rate of 18, blood pressure of 149/71, satting 97% on room air Labs are significant for WBC count Of 13.4, hemoglobin of 9.3 from 11.4 in 05/08 hematocrit 31.2, MCV of 91.5, potassium of 5.3, BUN of 47, creatinine of 1.41 which is around her baseline, BNP of 131, UA negative. Chest x-ray shows CHF and pulmonary congestion She was admitted to telemetry and diuresed net 3L with IV furosemide. Echocardiogram showed mildly reduced LVEF (40-45%) and grade 1 diastolic dysfunction. Her CHF exacerbation was likely triggered by dietary indiscretion. She developed acute kidney injury likely due to overdiuresis; serum creatinine improved with holding diuresis. She had mild hyperkalemia that resolved after 1 dose of SPS. For painful diabetic neuropathy, she was switched from gabapentin to pregabalin. Diarrhea and leukocytosis resolved without antibiotics; testing for C difficile colitis was negative. Due to ambulation difficulties related to pain and CHF exacerbation, she was discharged to short-term rehabilitation. She should have a repeat basic metabolic panel checked in 1 week and follow up with her primary care doctor after discharge from SNF. Referral to bariatrics should be considered for management of her morbid obesity. Time Spent with Patient Time attestation: Total time spent providing and/or coordinating discharge services: 40 Discharge coordination time: Greater than 30 minutes Physical Exam Vital Signs: Vital Signs: Last Vital Signs Temp 97.3 F 11/27/20 11:36 Pulse 77 11/27/20 11:36 Resp 20 11/27/20 11:36 BP 134/74 11/27/20 11:36 Pulse Ox 93 11/27/20 11:36 Body Mass Index 49.6 Gen: in no acute distress HEENT: sclera anicteric, moist mucus membranes Neck: supple Lungs: clear to auscultation bilaterally Heart: regular rate and rhythm, no murmurs Abd: soft, non-tender, morbidly obese Ext: no edema Skin: warm/well-perfused Neuro: alert and oriented x3, no focal findings Psych: appropriate affect DS: Data Data Completed and Pending Completed studies during hospitalization [Text1]: Laboratory Results WBC 9.9 X10*3/uL (4.8-10.8) 11/24/20 04:50 RBC 3.49 X10*6/uL (4.20-5.50) L 11/24/20 04:50 Hgb 9.5 g/dl (12.0-16.0) L 11/24/20 04:50 Hct 31.4 % (37-47) L 11/24/20 04:50 MCV 90.0 fL (80-98) 11/24/20 04:50 MCH 27.2 pg (27.0-33.0) 11/24/20 04:50 MCHC 30.3 g/dl (31.0-35.0) L 11/24/20 04:50 RDW 15.1 % (11.0-16.0) 11/24/20 04:50 Plt Count 201 X10*3/uL (160-400) 11/24/20 04:50 MPV 9.5 fL (9.4-12.3) 11/24/20 04:50 Immature Gran % (Auto) 0.5 % (0.0-0.4) H 11/24/20 04:50 Neut % (Auto) 70.2 % (45-73) 11/24/20 04:50 Lymph % (Auto) 16.3 % (20-40) L 11/24/20 04:50 [place] % (Auto) 11.0 % (2-11) 11/24/20 04:50 Eos % (Auto) 1.8 % (0-4) 11/24/20 04:50 Baso % (Auto) 0.2 % (0-2) 11/24/20 04:50 Lymph # (Auto) 1.6 X10*3/uL (1.2-4.9) 11/24/20 04:50 [place] # (Auto) 1.1 X10*3/uL (0.1-1.2) 11/24/20 04:50 Eos # (Auto) 0.2 X10*3/uL (0.0-0.4) 11/24/20 04:50 Baso # (Auto) 0.0 X10*3/uL (0.0-0.2) 11/24/20 04:50 Abs Immat Gran (auto) 0.05 X10*3/uL (0.00-0.03) H 11/24/20 04:50 Absolute Neuts (auto) 7.0 X10*3/uL (2.0-8.3) 11/24/20 04:50 Absolute Nucleated RBC 0.000 X10*3/uL (0.0-0.012) 11/24/20 04:50 Nucleated RBC % (auto) 0.0 /100WBC (0.0-0.2) 11/24/20 04:50 Sodium 141 mmol/L (135-145) 11/27/20 05:26 Potassium 4.8 mmol/L (3.3-5.1) 11/27/20 05:26 Chloride 104 mmol/L (96-108) 11/27/20 05:26 Carbon Dioxide 27 mmol/L (22-29) 11/27/20 05:26 Anion Gap 15 (12-20) 11/27/20 05:26 BUN 76 mg/dL (9-16) H 11/27/20 05:26 Creatinine 1.46 mg/dL (0.5-1.4) H 11/27/20 05:26 Estim Creat Clear Calc 51.9 11/27/20 05:26 Estimated GFR 37 11/27/20 05:26 POC Glucose 300 mg/dL (60-115) H 11/27/20 11:17 Random Glucose 235 mg/dL (60-115) H 11/27/20 05:26 Calcium 8.2 mg/dL (8.4-10.2) L 11/27/20 05:26 Ferritin 115 ng/mL (10-250) 11/22/20 23:52 Total Bilirubin 0.6 mg/dL (0.0-1.0) 11/22/20 23:52 AST 10 U/L (5-31) 11/22/20 23:52 ALT 10 U/L (0-31) 11/22/20 23:52 Alkaline Phosphatase 81 U/L (39-117) 11/22/20 23:52 B-Natriuretic Peptide 117 pg/mL (<100) H 11/27/20 05:26 Total Protein 6.6 g/dL (6.5-8.0) 11/22/20 23:52 Albumin 3.8 g/dL (3.5-5.0) 11/22/20 23:52 Vitamin B12 275 pg/mL (200-900) 11/22/20 23:52 Folate 7.9 ng/mL (> or = 4.0) 11/22/20 23:52 Urine Color YELLOW 11/22/20 23:44 Urine Appearance CLEAR 11/22/20 23:44 Urine pH 5.5 (5.0-8.0) 11/22/20 23:44 Ur Specific [place] 1.020 (1.005-1.025) 11/22/20 23:44 Urine Protein NEG MG/DL (NEG-TRACE) 11/22/20 23:44 Urine Glucose (UA) NEG MG/DL (NEG) 11/22/20 23:44 Urine Ketones NEG MG/DL (NEG) 11/22/20 23:44 Urine Blood NEG (NEG) 11/22/20 23:44 Urine Nitrite NEG (NEG) 11/22/20 23:44 Ur Leukocyte Esterase NEG (NEG) 11/22/20 23:44 Urine Creatinine 88.41 mg/dL 11/26/20 12:47 Urine Microalbumin 45.0 mg/L 11/26/20 12:47 Microalb/Creat Ratio 50.8 ug/mg cr 11/26/20 12:47 Stool Occult Blood NEGATIVE (NEGATIVE) 11/27/20 09:42 IgG Total 1022 mg/dL (600-1640) 11/25/20 05:53 IgA Total 230 mg/dL (47-310) 11/25/20 05:53 IgM 185 mg/dL (50-300) 11/25/20 05:53 ALEXANDRE Interpretation SEE NOTE 11/25/20 05:53 C. difficile Toxin A&B Negative (Negative) 11/27/20 09:42 C. difficile Antigen Negative (Negative) 11/27/20 09:42 C. difficile Interpret SEE NOTE 11/27/20 09:42 COVID-19 ([facility]) Negative (Negative) 11/27/20 12:03 COVID-19 Clin Com See Note 11/27/20 12:03 Impressions Ankle X-Ray 11/22/20 21:52 IMPRESSION: Soft tissue swelling without fracture Chest X-Ray 11/23/20 00:13 IMPRESSION: Cardiomegaly with CHF and interstitial pulmonary edema is the most likely diagnosis. TTE 11/23/20 - The left ventricular systolic function is mild to moderately decreased. The visually estimated ejection fraction is between 40-45%. - There is moderate mitral annular calcification. Discharge Plan Discharge Anticipated Discharge Date/Time: 11/27/20 12:28 Patient Disposition: [facility] Discharge Diagnosis: CHF exacerbation, acute kidney injury Referrals: [facility] SHORT TERM REHAB [Other] - 1 Day (discharged to the [facility] on [address] [facility] for short term rehab you will be transported via [facility] today compassionate care vna will continue to follow at the facility for when you are discharged) [facility] [Other] - 1 Week ([facility] TO TRANSPORT YOU TO [facility] TODAY) Tavo Huber MD [Primary Care Provider] - 1 Week Discharge Medications: New pregabalin [Lyrica] 150 mg Capsule 150 mg PO BID Qty: 60 RF: 0 Continued fluoxetine 40 mg capsule 1 cap PO DAILY RF: 0 metoprolol succinate 50 mg tablet extended release 24 hr 1 tab PO DAILY RF: 0 aspirin 81 mg tablet,delayed release (DR/EC) 1 tab PO DAILY RF: 0 tramadol 50 mg tablet 1 tab PO QID RF: 0 simvastatin 20 mg tablet 1 tab PO BEDTIME RF: 0 omeprazole 20 mg capsule,delayed release(DR/EC) 1 cap PO DAILY RF: 0 furosemide 20 mg tablet 40 mg PO DAILY RF: 0 insulin lispro [Humalog U-100 Insulin] 100 unit/mL solution subcut DIRECTED RF: 0 albuterol sulfate [ProAir HFA] 90 mcg/actuation HFA aerosol inhaler 2 puff inhalation QID PRN (Reason: Dyspnea) RF: 0 Flovent HFA 110 mcg/actuation HFA aerosol inhaler 2 puff inhalation BID RF: 0 Lantus U-100 Insulin 100 unit/mL solution 65 unit subcut BEDTIME RF: 0 amlodipine 10 mg tablet 1 tab PO DAILY RF: 0 Discontinued gabapentin 400 mg capsule 1 cap PO TID RF: 0 Discharge Orders: Discharge Order (Routine); Ordered 11/27/20 Ordered By: Heather Menchaca Diet: diabetic diet and low salt diet Activity on Discharge: As tolerated Stand Alone Forms: Patient Portal Discharge page Other Ambulatory Orders: Basic Metabolic Panel (Routine) Timeframe: 1 Week Facility: [facility] - Location: Laboratory Ordered By: Heather Menchaca Care Plan Goals: prevention of heart failure exacerbation kidney health relief of diabetic neuropathic pain Health Concerns: heart failure acute kidney injury diabetic neuropathy Plan of Treatment: resume furosemide; avoid sodium as much as possible recheck basic metabolic panel in 1 week stop gabapentin; take pregabalin 150 mg twice daily Assessment: as above Patient Instructions: Heart Failure (DC)
== END 2020-11-27 14:33 | disposition skilled nursing facility (03) | DRG 194 ==
LOC: HO.ED 11-23 01:43 → HO.S3 11-23 05:22
PROVIDERS: Hospitalist; Internal Medicine; Internal Medicine Nephrology; Admitting Provider Internal Medicine; Emergency Provider Student in an Organized Health Care Education/Training Program; PCP Internal Medicine; Visit Provider Family Medicine
DX: I13.0 Hypertensive heart and chronic kidney disease with heart failure and stage 1 through stage 4 chronic kidney disease, or unspecified chronic kidney disease (principal); E11.22 Type 2 diabetes mellitus with diabetic chronic kidney disease; E11.42 Type 2 diabetes mellitus with diabetic polyneuropathy; N17.9 Acute kidney failure, unspecified; N18.30 Chronic kidney disease, stage 3 unspecified; I50.23 Acute on chronic systolic (congestive) heart failure; E66.01 Morbid (severe) obesity due to excess calories; K21.9 Gastro-esophageal reflux disease without esophagitis; E78.5 Hyperlipidemia, unspecified; D72.829 Elevated white blood cell count, unspecified; Z20.822 Contact with and (suspected) exposure to COVID-19; F32.9 Major depressive disorder, single episode, unspecified; J45.909 Unspecified asthma, uncomplicated; D63.1 Anemia in chronic kidney disease; Z68.42 Body mass index [BMI] 45.0-49.9, adult; E87.5 Hyperkalemia; R19.7 Diarrhea, unspecified; M10.9 Gout, unspecified; R29.6 Repeated falls; Z91.81 History of falling; Z87.891 Personal history of nicotine dependence; Z88.5 Allergy status to narcotic agent; Z88.6 Allergy status to analgesic agent; Z79.4 Long term (current) use of insulin; Z79.51 Long term (current) use of inhaled steroids; Z79.82 Long term (current) use of aspirin; Z79.891 Long term (current) use of opiate analgesic; Z79.899 Other long term (current) drug therapy
CPT/HCPCS: 36415; 71046; 73610; 80048; 80053; 81003; 82043; 82272; 82607; 82728; 82746; 82784; 82947; 83880; 85025; 86334; 87324; 87449; 87635; 93306; 94640; 94664; 96365; 96375; 97116; 97162; 99285; J1650; J1940; J2543; Q0163

== ENCOUNTER 2020-12-11 10:46 | Inpatient (IN) | payer MEDICAID, SELFPAY ==
[2020-12-11] VITALS (11 sets, daily range): BP systolic 122–162; BP diastolic 55–95; PULSE 73–94; RESP 10–20; TEMP 36.4–36.6; O2SAT 73–98; BMI 53.2
--- NOTE | ~2020-12-11 | XR_ITS ---
EXAMINATION: XR CHEST CLINICAL INFORMATION: Shortness of breath. History of CHF. COMPARISON: Previous chest x-ray most recent 11/23/2020 TECHNIQUE: Frontal view of the chest was obtained. FINDINGS: The cardiac silhouette is enlarged. There is pulmonary venous redistribution and increased perihilar attenuation suggestive of pulmonary edema. There is no pleural effusion or pneumothorax. Visualized bony structures are unremarkable. XR/XR chest 1V IMPRESSION: Enlarged cardiac silhouette and CHF.
--- NOTE | ~2020-12-11 | CT_ITS ---
EXAMINATION: CT ANGIOGRAM OF THE CHEST WITH AND WITHOUT CONTRAST (CT PULMONARY ANGIOGRAM FOR PE) CLINICAL INFORMATION: Reason for Exam SOB, elevated dimer COMPARISON: Previous chest x-ray from earlier the same day TECHNIQUE: Prior to contrast administration, noncontrast localization images were obtained. Subsequently, multidetector volumetric imaging was performed from the thoracic inlet to below the diaphragms following the administration of 75 mL Omnipaque 350 intravenous contrast. No contrast reaction reported Sagittal, coronal, and MIP oblique sagittal reformatted images were obtained on the CT workstation, uploaded to PACS, and reviewed. This CT examination was performed using dose optimization techniques as appropriate, variously including the following: *Automated exposure control *Adjustment of mA and/or kV according to patient size (this includes techniques or standardized protocols for targeted exams where dose is matched to indication/reason for exam; i.e. extremities or head) *Use of iterative reconstruction technique Total exam dose-length product 6 5 2 mGy-cm FINDINGS: QUALITY OF STUDY/CONTRAST BOLUS: Satisfactory. PULMONARY ARTERIES: No central or segmental pulmonary emboli. THORACIC AORTA: No aneurysm or dissection. LUNG: There is bilateral lower lobe atelectasis. PLEURA: There are small bilateral pleural effusions. MEDIASTINUM: The heart is enlarged. There is a very small pericardial effusion. There are no enlarged hilar or mediastinal lymph nodes. CHEST WALL/AXILLA: No axillary or internal mammary lymphadenopathy. OSSEOUS STRUCTURES: There are degenerative changes of the spine. UPPER ABDOMEN: Unremarkable. No reflux of contrast into the hepatic veins to suggest elevated right heart pressures. CT/CT angio chest PE protocol IMPRESSION: No evidence of pulmonary embolism. Enlarged heart and small bilateral pleural effusions. Bilateral lower lobe atelectasis. VTE: negative
--- NOTE | 2020-12-11 10:45 | ECG_ITS ---
Test Reason : SOB Blood Pressure : / mmHG Vent. Rate : 089 BPM Atrial Rate : 089 BPM P-R Int : 162 ms QRS Dur : 100 ms QT Int : 420 ms P-R-T Axes : 053 054 055 degrees QTc Int : 511 ms Sinus rhythm with occasional Premature ventricular complexes Prolonged QT Abnormal ECG No previous ECGs available Referred By: Yolanda Grier Electronically Signed By:LUDA VICTORIA
[2020-12-11 11:08] LABS: MANUAL DIFF FLAG NO
[2020-12-11 11:16] LABS: Venous Blood Gas Refer to POC result
[2020-12-11 11:16] LABS: Basophils Percent Auto 0.2 % (0-2); Eosinophils Absolute Auto 0.1 X10*3/uL (0.0-0.4); Eosinophils Percent Auto 1.5 % (0-4); Hematocrit 33.9 % (37-47); Hemoglobin 9.7 g/dl (12.0-16.0); Imm Gran Abs Auto 0.06 X10*3/uL (0.00-0.03); Imm Gran Pct Auto 0.6 % (0.0-0.4); Lymphocytes Absolute Auto 1.2 X10*3/uL (1.2-4.9); Lymphocytes Percent Auto 12.1 % (20-40); Mean Corpuscular HGB Conc 28.6 g/dl (31.0-35.0); Mean Corpuscular Hemoglobin 26.4 pg (27.0-33.0); Mean Corpuscular Volume 92.4 fL (80-98); Mean Platelet Volume 9.3 fL (9.4-12.3); Monocytes Absolute Auto 0.7 X10*3/uL (0.1-1.2); Monocytes Percent Auto 6.8 % (2-11); Neutrophils Absolute Auto 7.6 X10*3/uL (2.0-8.3); Neutrophils Percent Auto 78.8 % (45-73); Platelet Count 192 X10*3/uL (160-400); Red Blood Count 3.67 X10*6/uL (4.20-5.50); Red Cell Distribution Width 15.8 % (11.0-16.0); White Blood Count 9.7 X10*3/uL (4.8-10.8)
[2020-12-11 11:17] LABS: VBG Base Excess 6.2 mmol/L; VBG HCO3 34 mmol/L (22-26); VBG pCO2 70 mmHg; VBG pH 7.29 (7.32-7.43); VBG pO2 58 mmHg
[2020-12-11 11:24] LABS: Prothrombin Time 11.7 SEC (10.8-13.0)
[2020-12-11 11:33] LABS: Alanine Aminotransferase 13 U/L (0-31); Albumin Level 3.9 g/dL (3.5-5.0); Alkaline Phosphatase 87 U/L (39-117); Anion Gap 15 (12-20); Aspartate Amino Transferase 14 U/L (5-31); Bilirubin Direct 0.2 mg/dL (0.0-0.5); Bilirubin Total 0.6 mg/dL (0.0-1.0); Blood Urea Nitrogen 35 mg/dL (9-16); Calcium 8.6 mg/dL (8.4-10.2); Carbon Dioxide 28 mmol/L (22-29); Chloride 106 mmol/L (96-108); Creatinine Clr Calc Pharmacy 64.9; Estimated Glomerular Filt Rate 45; Glucose Random 207 mg/dL (60-115); Potassium 4.5 mmol/L (3.3-5.1); Sodium 144 mmol/L (135-145); Total Protein 6.8 g/dL (6.5-8.0)
[2020-12-11 11:42] LABS: Appearance Urine CLEAR; Color Urine STRAW; Glucose Urine UA NEG (NEG); Leukocyte Esterase Urine NEG (NEG); Nitrite Urine NEG (NEG); PH 5.5 (5.0-8.0); Specific Gravity - Urine 1.015 (1.005-1.025); Urine Blood NEG (NEG); Urine Ketones NEG (NEG); Urine Protein NEG (NEG-TRACE)
[2020-12-11 11:42] LABS: B Type Natriuretic Peptide 232 pg/mL (<100); Troponin-I High Sensitivity 6.2 ng/L (<3.5-17.0)
[2020-12-11 11:48] LABS: RBC Urine 0-2 /HPF (0); Squamous Epithelial Cell Urine TRACE /LPF; WBC Urine 0 /HPF (0-4)
[2020-12-11] MEDS: Furosemide 40 MG/4 ML VIAL IVPUSH ×2 (11:48→19:20)
[2020-12-11 12:23] LABS: D Dimer 670 NG/ML
[2020-12-11 12:58] LABS: Influenza A PCR NEGATIVE (Negative); Influenza B PCR NEGATIVE (Negative); Resp Syncy Virus RNA Qual PCR NEGATIVE (Negative); SARS COV2 PCR INHOUSE NEGATIVE (Negative)
--- NOTE | 2020-12-11 13:09 | PC.NURSE ---
pt desat to 79% on r/a. bipap was d/c'd by for room air trial. pt placed on 4l/m via n/c. 02 sat 98% on 4l/m via n/c, capnograpy 38, resp 12, md aware.
--- NOTE | 2020-12-11 15:03 | PC.NURSE ---
drained approx 1600ml from ghotra
--- NOTE | 2020-12-11 15:17 | ED_ITS ---
HPI - General Adult General Chief complaint: Dyspnea Stated complaint: SOB, CPAP Time Seen by Provider: 12/11/20 12:09 Source: EMS Mode of arrival: EMS Limitations: other (Shortness of breath) History of Present Illness HPI narrative: Patient comes to emergency room complaining of shortness of breath. Patient is coming from [facility] for rehab. The staff reports that the patient complained of shortness of breath earlier this morning, oxygen saturation was found to be 73% on room air. Patient does not use oxygen at home. Patient was placed on CPAP, by the time patient arrived to the Emergency Room oxygen saturation was in the mid 90s, stating that she was feeling better but still a bit short of breath. Patient denies chest pain, no other symptoms. Prior to arrival, patient received 40 mg of p.o. Lasix at the alf facility. Patient was discharged from this hospital, patient was admitted for CHF exacerbation. MD complaint: Shortness of breath Related Data Home Medications Medication Instructions Recorded Confirmed Flovent HFA 2 puff INHALATION BID 11/23/20 11/23/20 Lantus U-100 Insulin 65 unit SUBCUT BEDTIME 11/23/20 11/23/20 albuterol sulfate [ProAir HFA] 2 puff INHALATION QID PRN 11/23/20 11/23/20 amlodipine 1 tab PO DAILY 11/23/20 11/23/20 aspirin 1 tab PO DAILY 11/23/20 11/23/20 fluoxetine 1 cap PO DAILY 11/23/20 11/23/20 furosemide 40 mg PO DAILY 11/23/20 11/23/20 insulin lispro [Humalog U-100 SUBCUT DIRECTED 11/23/20 Insulin] metoprolol succinate 1 tab PO DAILY 11/23/20 11/23/20 omeprazole 1 cap PO DAILY 11/23/20 11/23/20 simvastatin 1 tab PO BEDTIME 11/23/20 11/23/20 tramadol 1 tab PO QID 11/23/20 11/23/20 Previous Rx's Medication Instructions Recorded pregabalin [Lyrica] 150 mg PO BID #60 cap 11/27/20 Allergies Allergy/AdvReac Type Severity Reaction Status Date / Time No Known Allergies Allergy Unverified 12/11/20 10:41 acetaminophen [Tylenol] AdvReac Unknown vommiting, Verified 11/22/20 21:28 itching ibuprofen AdvReac Unknown vommiting, Verified 11/22/20 21:28 itching morphine AdvReac Unknown vomiting Verified 11/22/20 21:28 Motrin Allergy Unknown itching Uncoded 09/21/19 00:00 Review of Systems Review of Systems: Constitutional : No Weight loss, No Fever, No Chills, No Night Sweats, No Fatigue, No Malaise ENT/Mouth : No Hearing loss, No Ear Pain, No Nasal Congestion, No Sinus Pain, No Hoarseness, No sore throat, No Rhinorrhea, No Swallowing Difficulty Eyes: No Eye Pain, No Swelling, No Redness, No Foreign Body, No Discharge, No Vision Changes Cardiovascular : No Chest Pain, No SOB, No Dyspnea on Exertion, No Orthopnea, chronic lower extremity edema, no palpitations Respiratory : No Cough, No Sputum, No Wheezing, No Smoke Exposure, patient complaining of dyspnea Gastrointestinal : No Nausea, No Vomiting, No Diarrhea, No Constipation, No abdominal Pain, No Hematochezia, No Melena Genitourinary : no irregular bleeding, No Dysuria, No Urinary Frequency, No Hematuria, No Urinary Incontinence, No Urgency, No Flank Pain, No Urinary Flow Changes, No Hesitancy Musculoskeletal : No joint pain, No Myalgias, No Joint Swelling Skin : No Skin Lesions, No rash Neuro : No Weakness, No Numbness, No Paresthesias, No Loss of Consciousness, No Dizziness, No Headache Psych : No Anxiety/Panic, No Depression, No SI/HI/AH/VH, No Social Issues, Heme/Lymph: No Bruising, No Bleeding,No Lymphadenopathy Endocrine : No Polyuria, No Polydipsia, No Temperature Intolerance PMFSH Past Medical History Medical History Acute on chronic HFrEF (heart failure with reduced ejection fraction) FELICIA (acute kidney injury) Asthma delivery delivered CHF exacerbation Chronic pain Depression Diabetes Diabetic neuropathy, painful Diarrhea High cholesterol Hypertension Left ankle pain Leukocytosis Morbid obesity Swelling of lower extremity Surgical History Hx of cholecystectomy Social History Social History Household Members: None Housing: Apartment Do you presently have visiting nurse or other home services: Yes Alcohol intake: current Alcohol intake frequency: holidays/special occasions only Smoking Status: Former smoker Years Smoked: 38 Second Hand Smoke Exposure: No Use of substances other than those prescribed or required for medical reasons: No Substance Use Type: Marijuana Advance Directives: No Advance Directives Information Provided: Yes Physical Exam Vital Signs: Vital Signs: Last Vital Signs Temp 97.9 F 12/11/20 14:02 Pulse 73 12/11/20 14:51 Resp 12 12/11/20 14:51 BP 130/72 12/11/20 14:51 Pulse Ox 88 L 12/11/20 14:51 Body Mass Index 53.2 Appearance: Alert. Oriented X3. Mild distress Eyes: Pupils equal, round and reactive to light. ENT: Pharynx normal. Neck: Normal inspection. Neck supple. No lymph nodes noted. No crepitus CVS: Normal heart rate and rhythm. Pulses normal. Normal S1 and S2 Respiratory: Mild respiratory distress. Bilateral crackles, No Wheezing. Abdomen: Soft and nontender. No rigidity. No distention. Skin: Skin warm and dry. Normal skin color. Normal skin turgor. Extremities: Bilateral lower extremity pitting edema close to. No Lacerations. No Rash Neuro: Moves all extremities Course Course Course Narrative: Patient was initially from CPAP. At this time, patient is on 2 L nasal cannula. Patient states she feels much better, no longer short of breath. We attempted to wean the patient off of oxygen, oxygen saturation drops to 88% on room air. Patient is back on nasal cannula 2 L. D-dimer is elevated, CT for PE study pending. CTA for PE study negative for PE. Patient being admitted for CHF exacerbation. I discussed the patient with Dr. Kraus, patient being admitted. Medical Decision Making Lab Data Result diagrams: 12/11/20 10:53 12/11/20 10:53 Labs: Lab Results 12/11/20 12/11/20 12/11/20 Range/Units 10:51 10:53 10:53 WBC 9.7 (4.8-10.8) X10*3/uL RBC 3.67 L (4.20-5.50) X10*6/uL Hgb 9.7 L (12.0-16.0) g/dl Hct 33.9 L (37-47) % MCV 92.4 (80-98) fL MCH 26.4 L (27.0-33.0) pg MCHC 28.6 L (31.0-35.0) g/dl RDW 15.8 (11.0-16.0) % Plt Count 192 (160-400) X10*3/uL MPV 9.3 L (9.4-12.3) fL Immature Gran % (Auto) 0.6 H (0.0-0.4) % Neut % (Auto) 78.8 H (45-73) % Lymph % (Auto) 12.1 L (20-40) % Leake % (Auto) 6.8 (2-11) % Eos % (Auto) 1.5 (0-4) % Baso % (Auto) 0.2 (0-2) % Lymph # (Auto) 1.2 (1.2-4.9) X10*3/uL Leake # (Auto) 0.7 (0.1-1.2) X10*3/uL Eos # (Auto) 0.1 (0.0-0.4) X10*3/uL Baso # (Auto) 0.0 (0.0-0.2) X10*3/uL Abs Immat Gran (auto) 0.06 H (0.00-0.03) X10*3/uL Absolute Neuts (auto) 7.6 (2.0-8.3) X10*3/uL Absolute Nucleated RBC 0.000 (0.0-0.012) X10*3/uL Nucleated RBC % (auto) 0.0 (0.0-0.2) /100WBC PT 11.7 (10.8-13.0) SEC INR 1.0 (0.9-1.1) D-Dimer 670 NG/ML VBG pH Cancelled VBG pCO2 Cancelled VBG pO2 Cancelled VBG HCO3 Cancelled VBG O2 Saturation Cancelled VBG Base Excess Cancelled Sodium (135-145) mmol/L Potassium (3.3-5.1) mmol/L Chloride (96-108) mmol/L Carbon Dioxide (22-29) mmol/L Anion Gap (12-20) BUN (9-16) mg/dL Creatinine (0.5-1.4) mg/dL Estim Creat Clear Calc Estimated GFR Random Glucose (60-115) mg/dL Calcium (8.4-10.2) mg/dL Total Bilirubin (0.0-1.0) mg/dL Direct Bilirubin (0.0-0.5) mg/dL AST (5-31) U/L ALT (0-31) U/L Alkaline Phosphatase (39-117) U/L Troponin I High Sens (<3.5-17.0) ng/L B-Natriuretic Peptide (<100) pg/mL Total Protein (6.5-8.0) g/dL Albumin (3.5-5.0) g/dL Urine Color Urine Appearance Urine pH (5.0-8.0) Ur Specific [place] (1.005-1.025) Urine Protein (NEG-TRACE) MG/DL Urine Glucose (UA) (NEG) MG/DL Urine Ketones (NEG) MG/DL Urine Blood (NEG) Urine Nitrite (NEG) Ur Leukocyte Esterase (NEG) Urine RBC (0) /HPF Urine WBC (0-4) /HPF Ur Squamous Epith Cells /LPF Urine Bacteria /LPF Coronavirus (PCR) (Negative) Influenza Type A (PCR) (Negative) Influenza Type B (PCR) (Negative) RSV RNA Qual (PCR) (Negative) 12/11/20 12/11/20 12/11/20 Range/Units 10:53 10:53 11:09 WBC (4.8-10.8) X10*3/uL RBC (4.20-5.50) X10*6/uL Hgb (12.0-16.0) g/dl Hct (37-47) % MCV (80-98) fL MCH (27.0-33.0) pg MCHC (31.0-35.0) g/dl RDW (11.0-16.0) % Plt Count (160-400) X10*3/uL MPV (9.4-12.3) fL Immature Gran % (Auto) (0.0-0.4) % Neut % (Auto) (45-73) % Lymph % (Auto) (20-40) % Leake % (Auto) (2-11) % Eos % (Auto) (0-4) % Baso % (Auto) (0-2) % Lymph # (Auto) (1.2-4.9) X10*3/uL [place] # (Auto) (0.1-1.2) X10*3/uL Eos # (Auto) (0.0-0.4) X10*3/uL Baso # (Auto) (0.0-0.2) X10*3/uL Abs Immat Gran (auto) (0.00-0.03) X10*3/uL Absolute Neuts (auto) (2.0-8.3) X10*3/uL Absolute Nucleated RBC (0.0-0.012) X10*3/uL Nucleated RBC % (auto) (0.0-0.2) /100WBC PT (10.8-13.0) SEC INR (0.9-1.1) D-Dimer NG/ML VBG pH 7.29 L VBG pCO2 70 VBG pO2 58 VBG HCO3 34 H VBG O2 Saturation 80.0 VBG Base Excess 6.2 Sodium 144 (135-145) mmol/L Potassium 4.5 (3.3-5.1) mmol/L Chloride 106 (96-108) mmol/L Carbon Dioxide 28 (22-29) mmol/L Anion Gap 15 (12-20) BUN 35 H D (9-16) mg/dL Creatinine 1.22 (0.5-1.4) mg/dL Estim Creat Clear Calc 64.9 Estimated GFR 45 Random Glucose 207 H (60-115) mg/dL Calcium 8.6 (8.4-10.2) mg/dL Total Bilirubin 0.6 (0.0-1.0) mg/dL Direct Bilirubin 0.2 (0.0-0.5) mg/dL AST 14 (5-31) U/L ALT 13 (0-31) U/L Alkaline Phosphatase 87 (39-117) U/L Troponin I High Sens 6.2 (<3.5-17.0) ng/L B-Natriuretic Peptide 232 H (<100) pg/mL Total Protein 6.8 (6.5-8.0) g/dL Albumin 3.9 (3.5-5.0) g/dL Urine Color Urine Appearance Urine pH (5.0-8.0) Ur Specific [place] (1.005-1.025) Urine Protein (NEG-TRACE) MG/DL Urine Glucose (UA) (NEG) MG/DL Urine Ketones (NEG) MG/DL Urine Blood (NEG) Urine Nitrite (NEG) Ur Leukocyte Esterase (NEG) Urine RBC (0) /HPF Urine WBC (0-4) /HPF Ur Squamous Epith Cells /LPF Urine Bacteria /LPF Coronavirus (PCR) (Negative) Influenza Type A (PCR) (Negative) Influenza Type B (PCR) (Negative) RSV RNA Qual (PCR) (Negative) 12/11/20 12/11/20 Range/Units 11:30 12:16 WBC (4.8-10.8) X10*3/uL RBC (4.20-5.50) X10*6/uL Hgb (12.0-16.0) g/dl Hct (37-47) % MCV (80-98) fL MCH (27.0-33.0) pg MCHC (31.0-35.0) g/dl RDW (11.0-16.0) % Plt Count (160-400) X10*3/uL MPV (9.4-12.3) fL Immature Gran % (Auto) (0.0-0.4) % Neut % (Auto) (45-73) % Lymph % (Auto) (20-40) % Leake % (Auto) (2-11) % Eos % (Auto) (0-4) % Baso % (Auto) (0-2) % Lymph # (Auto) (1.2-4.9) X10*3/uL [place]ake # (Auto) (0.1-1.2) X10*3/uL Eos # (Auto) (0.0-0.4) X10*3/uL Baso # (Auto) (0.0-0.2) X10*3/uL Abs Immat Gran (auto) (0.00-0.03) X10*3/uL Absolute Neuts (auto) (2.0-8.3) X10*3/uL Absolute Nucleated RBC (0.0-0.012) X10*3/uL Nucleated RBC % (auto) (0.0-0.2) /100WBC PT (10.8-13.0) SEC INR (0.9-1.1) D-Dimer NG/ML VBG pH VBG pCO2 VBG pO2 VBG HCO3 VBG O2 Saturation VBG Base Excess Sodium (135-145) mmol/L Potassium (3.3-5.1) mmol/L Chloride (96-108) mmol/L Carbon Dioxide (22-29) mmol/L Anion Gap (12-20) BUN (9-16) mg/dL Creatinine (0.5-1.4) mg/dL Estim Creat Clear Calc Estimated GFR Random Glucose (60-115) mg/dL Calcium (8.4-10.2) mg/dL Total Bilirubin (0.0-1.0) mg/dL Direct Bilirubin (0.0-0.5) mg/dL AST (5-31) U/L ALT (0-31) U/L Alkaline Phosphatase (39-117) U/L Troponin I High Sens (<3.5-17.0) ng/L B-Natriuretic Peptide (<100) pg/mL Total Protein (6.5-8.0) g/dL Albumin (3.5-5.0) g/dL Urine Color STRAW Urine Appearance CLEAR Urine pH 5.5 (5.0-8.0) Ur Specific [place] 1.015 (1.005-1.025) Urine Protein NEG (NEG-TRACE) MG/DL Urine Glucose (UA) NEG (NEG) MG/DL Urine Ketones NEG (NEG) MG/DL Urine Blood NEG (NEG) Urine Nitrite NEG (NEG) Ur Leukocyte Esterase NEG (NEG) Urine RBC 0-2 (0) /HPF Urine WBC 0 (0-4) /HPF Ur Squamous Epith Cells TRACE /LPF Urine Bacteria NONE /LPF Coronavirus (PCR) NEGATIVE (Negative) Influenza Type A (PCR) NEGATIVE (Negative) Influenza Type B (PCR) NEGATIVE (Negative) RSV RNA Qual (PCR) NEGATIVE (Negative) Imaging Data CTA for PE: Radiologist's impression: FINDINGS: QUALITY OF STUDY/CONTRAST BOLUS: Satisfactory. PULMONARY ARTERIES: No central or segmental pulmonary emboli. THORACIC AORTA: No aneurysm or dissection. LUNG: There is bilateral lower lobe atelectasis. PLEURA: There are small bilateral pleural effusions. MEDIASTINUM: The heart is enlarged. There is a very small pericardial effusion. There are no enlarged hilar or mediastinal lymph nodes. CHEST WALL/AXILLA: No axillary or internal mammary lymphadenopathy. OSSEOUS STRUCTURES: There are degenerative changes of the spine. UPPER ABDOMEN: Unremarkable. No reflux of contrast into the hepatic veins to suggest elevated right heart pressures. CT/CT angio chest PE protocol IMPRESSION: No evidence of pulmonary embolism. Enlarged heart and small bilateral pleural effusions. Bilateral lower lobe atelectasis. VTE: negative Critical Care Time Critical Care Time Total Critical Care Time: 120 Discharge Plan Discharge Clinical Impression: Acute hypercapnic respiratory failure CHF (congestive heart failure) Qualifiers: Heart failure type: unspecified Heart failure chronicity: unspecified Qualified Code(s): I50.9 - Heart failure, unspecified Patient Disposition: Admitted As Inpatient
[2020-12-11] MEDS: iohexoL 350 MG/ML 100 ML INFUS..BTL IV (16:05)
[2020-12-11 18:06] LABS: Strep A Nucleic Acid Negative (Negative)
[2020-12-11 18:29] LABS: ABG Refer to POC result
[2020-12-11 18:29] LABS: ABG Base Excess 7.6 mmol/L; ABG HCO3 34 mmol/L (22-26); ABG pCO2 56 mmHg (32-45); ABG pCO2 TC 55 mmHg (32-45); ABG pH 7.38 (7.35-7.45); ABG pH TC 7.39 (7.35-7.45); ABG pO2 65 mmHg (83-108); ABG pO2 TC 63 (83-108)
--- NOTE | 2020-12-11 18:35 | PM.IMHP ---
History of Present Illness Date of Service: 12/11/20 Chief Complaint: sob 60-year-old female with past medical history of see history HTN, DM, CHF HLD, depression, asthma, who presents to the hospital with complaints sob and leg swelling. As per the patient and her daughter patient was having these symptoms from almost a week or so-as per the daughter and ever since she went to rehab she was drinking lot of fluid as well as eating chips and was not compliant. So was having problem even sitting and was not able to breath. She said that in the rehab liver trying to set her up but it was very difficult for her to sit up with the breathing issue show she was sent to the emergency room. In the emergency room patient was given p.o. Lasix and trial of bipap-seems improving after that, initial VBG had shown hypercarbic and low pH 7.29 but afterwards 7.39 and pCO2 went down from 70 to 56. In addition CTA was done which is negative for pulmonary embolism, also shows pulmonary effusions small as well as bibasilar atelectasis, elevated BNP than baseline. Patient denies any chest pain or abdominal pain or fever or chills or weakness numbness or diarrhea or headache or nausea or vomiting or any pain. Review of Systems Review of Systems: As above in Hpi. Yes all other systems are reviewed and are negative [facility] Medical History (Updated 12/12/20 @ 11:10 by Tim Szymanski MD) Acute on chronic HFrEF (heart failure with reduced ejection fraction) FELICIA (acute kidney injury) Asthma delivery delivered CHF exacerbation Chronic pain Depression Diabetes Diabetic neuropathy, painful Diarrhea High cholesterol Hypertension Left ankle pain Leukocytosis Morbid obesity NICM (nonischemic cardiomyopathy) Swelling of lower extremity Surgical History Hx of cholecystectomy Social History Household Members: None Housing: Assisted Living Facility Housing Other:: [facility] Do you presently have visiting nurse or other home services: Yes Alcohol intake: current Alcohol intake frequency: holidays/special occasions only Years Smoked: 38 Second Hand Smoke Exposure: No Use of substances other than those prescribed or required for medical reasons: No Substance Use Type: Marijuana Currently Displaying Signs/Symptoms of Drug Intoxication Withdrawal: No Have you been hit, kicked, punched, or otherwise hurt by someone within the past year? If so, by whom?: No Do you feel safe in your current relationship?: No Current Relationship Is there a partner from a previous relationship who is making you feel unsafe now?: No Are you made to feel afraid or neglected: No Advance Directives: No Advance Directives Information Provided: Yes Do you have thoughts of harming others: None Do you have a plan to hurt others: No Plan Recently lost weight without trying: No How much weight loss: Not applicable Eating poorly because of decreased appetite: No Nutrition screen score: 0 Nutrition Risks: No Nutritional Risk Patient : No : No Poor oral hygiene: No service: No Current occupational status: disabled Meds Allergies Allergy/AdvReac Type Severity Reaction Status Date / Time No Known Allergies Allergy Unverified 12/11/20 10:41 acetaminophen [Tylenol] AdvReac Unknown vommiting, Verified 11/22/20 21:28 itching ibuprofen AdvReac Unknown vommiting, Verified 11/22/20 21:28 itching morphine AdvReac Unknown vomiting Verified 11/22/20 21:28 Motrin Allergy Unknown itching Uncoded 09/21/19 00:00 Home Medications Medication Instructions Recorded Confirmed Last Taken Type Flovent HFA 2 puff INHALATION BID 11/23/20 12/11/20 12/11/20 History Lantus U-100 Insulin 80 unit SUBCUT BEDTIME 11/23/20 12/11/20 12/10/20 History albuterol sulfate [ProAir HFA] 2 puff INHALATION Q4H PRN 11/23/20 12/11/20 12/11/20 History amlodipine 10 mg PO DAILY 11/23/20 12/11/20 12/11/20 History aspirin 81 mg PO DAILY 11/23/20 12/11/20 12/11/20 History fluoxetine 40 mg PO DAILY 11/23/20 12/11/20 12/11/20 History furosemide 20 mg PO DAILY 11/23/20 12/11/20 12/11/20 History insulin lispro [Humalog U-100 See Rx Instructions .ROUTE .COMPLEX 11/23/20 12/11/20 11/22/20 History Insulin] metoprolol succinate 50 mg PO DAILY 11/23/20 12/11/20 12/11/20 History omeprazole 20 mg PO BEDTIME 11/23/20 12/11/20 12/10/20 History simvastatin 20 mg PO BEDTIME 11/23/20 12/11/20 12/10/20 History tramadol 100 mg PO Q8H PRN 11/23/20 12/11/20 12/10/20 History cholecalciferol (vitamin D3) 50 mcg PO DAILY 12/11/20 12/11/20 12/11/20 History isosorbide mononitrate 30 mg PO DAILY 12/11/20 12/11/20 12/11/20 History pregabalin [Lyrica] 100 mg PO BID 12/11/20 12/11/20 12/10/20 History tizanidine 4 mg PO BEDTIME 12/11/20 12/11/20 12/10/20 History Physical Exam Vital Signs and Narrative: Vital Signs: Last Vital Signs Temp 97.9 F 12/11/20 14:02 Pulse 73 12/11/20 14:51 Resp 12 12/11/20 14:51 BP 130/72 12/11/20 14:51 Pulse Ox 88 L 12/11/20 14:51 Body Mass Index 53.2 Physical exam: Const: General: cooperative and no acute distress Orientation/consciousness: patient oriented x3 Eyes: appearance normal, both eyes and all related structures Resp: upper airway fair entry, slightly dimished at bases, few rhonchii scattered Cardio: rrr, s1s2 heard. GI: Soft nondistended nontender, bowel sounds are present. Skin: no rashes or lesions noted Neuro: patient oriented x3 Cognition (Neuro): normal cognition Extrem: extremity edema bilaterally, no erythema or warmth Results Labs CBC and Chem 7: 12/11/20 10:53 12/12/20 05:45 Labs: Laboratory Results - last 24 hr 12/11/20 12/11/20 12/11/20 10:51 10:53 10:53 MCV 92.4 MCH 26.4 L MCHC 28.6 L RDW 15.8 Plt Count 192 MPV 9.3 L Immature Gran % (Auto) 0.6 H Neut % (Auto) 78.8 H Lymph % (Auto) 12.1 L [place] % (Auto) 6.8 Eos % (Auto) 1.5 Baso % (Auto) 0.2 Lymph # (Auto) 1.2 [place] # (Auto) 0.7 Eos # (Auto) 0.1 Baso # (Auto) 0.0 Abs Immat Gran (auto) 0.06 H Absolute Neuts (auto) 7.6 Absolute Nucleated RBC 0.000 Nucleated RBC % (auto) 0.0 PT 11.7 INR 1.0 D-Dimer 670 O2 Saturation ABG pH at Pt Temp ABG pH (Temp Correct) ABG pCO2 at Pt Temp ABG pCO2 (Temp Corrct ABG pO2 at Pt Temp ABG pO2 (Temp Correct ABG HCO3 ABG Base Excess (Actual) VBG pH Cancelled VBG pCO2 Cancelled VBG pO2 Cancelled VBG HCO3 Cancelled VBG O2 Saturation Cancelled VBG Base Excess Cancelled Anion Gap Estim Creat Clear Calc Estimated GFR Random Glucose Calcium Total Bilirubin Direct Bilirubin AST ALT Alkaline Phosphatase Troponin I High Sens B-Natriuretic Peptide Total Protein Albumin Urine Color Urine Appearance Urine pH Ur Specific [place] Urine Protein Urine Glucose (UA) Urine Ketones Urine Blood Urine Nitrite Ur Leukocyte Esterase Urine RBC Urine WBC Ur Squamous Epith Cells Urine Bacteria Coronavirus (PCR) Influenza Type A (PCR) Influenza Type B (PCR) RSV RNA Qual (PCR) S. pyogenes GrpA GIOVANNI 12/11/20 12/11/20 12/11/20 10:53 10:53 11:09 MCV MCH MCHC RDW Plt Count MPV Immature Gran % (Auto) Neut % (Auto) Lymph % (Auto) [place] % (Auto) Eos % (Auto) Baso % (Auto) Lymph # (Auto) [place] # (Auto) Eos # (Auto) Baso # (Auto) Abs Immat Gran (auto) Absolute Neuts (auto) Absolute Nucleated RBC Nucleated RBC % (auto) PT INR D-Dimer O2 Saturation ABG pH at Pt Temp ABG pH (Temp Correct) ABG pCO2 at Pt Temp ABG pCO2 (Temp Corrct ABG pO2 at Pt Temp ABG pO2 (Temp Correct ABG HCO3 ABG Base Excess (Actual) VBG pH 7.29 L VBG pCO2 70 VBG pO2 58 VBG HCO3 34 H VBG O2 Saturation 80.0 VBG Base Excess 6.2 Anion Gap 15 Estim Creat Clear Calc 64.9 Estimated GFR 45 Random Glucose 207 H Calcium 8.6 Total Bilirubin 0.6 Direct Bilirubin 0.2 AST 14 ALT 13 Alkaline Phosphatase 87 Troponin I High Sens 6.2 B-Natriuretic Peptide 232 H Total Protein 6.8 Albumin 3.9 Urine Color Urine Appearance Urine pH Ur Specific [place] Urine Protein Urine Glucose (UA) Urine Ketones Urine Blood Urine Nitrite Ur Leukocyte Esterase Urine RBC Urine WBC Ur Squamous Epith Cells Urine Bacteria Coronavirus (PCR) Influenza Type A (PCR) Influenza Type B (PCR) RSV RNA Qual (PCR) S. pyogenes GrpA GIOVANNI 12/11/20 12/11/20 12/11/20 11:30 12:16 17:45 MCV MCH MCHC RDW Plt Count MPV Immature Gran % (Auto) Neut % (Auto) Lymph % (Auto) [place] % (Auto) Eos % (Auto) Baso % (Auto) Lymph # (Auto) [place] # (Auto) Eos # (Auto) Baso # (Auto) Abs Immat Gran (auto) Absolute Neuts (auto) Absolute Nucleated RBC Nucleated RBC % (auto) PT INR D-Dimer O2 Saturation ABG pH at Pt Temp ABG pH (Temp Correct) ABG pCO2 at Pt Temp ABG pCO2 (Temp Corrct ABG pO2 at Pt Temp ABG pO2 (Temp Correct ABG HCO3 ABG Base Excess (Actual) VBG pH VBG pCO2 VBG pO2 VBG HCO3 VBG O2 Saturation VBG Base Excess Anion Gap Estim Creat Clear Calc Estimated GFR Random Glucose Calcium Total Bilirubin Direct Bilirubin AST ALT Alkaline Phosphatase Troponin I High Sens B-Natriuretic Peptide Total Protein Albumin Urine Color STRAW Urine Appearance CLEAR Urine pH 5.5 Ur Specific [place] 1.015 Urine Protein NEG Urine Glucose (UA) NEG Urine Ketones NEG Urine Blood NEG Urine Nitrite NEG Ur Leukocyte Esterase NEG Urine RBC 0-2 Urine WBC 0 Ur Squamous Epith Cells TRACE Urine Bacteria NONE Coronavirus (PCR) NEGATIVE Influenza Type A (PCR) NEGATIVE Influenza Type B (PCR) NEGATIVE RSV RNA Qual (PCR) NEGATIVE S. pyogenes GrpA GIOVANNI Negative 12/11/20 18:22 MCV MCH MCHC RDW Plt Count MPV Immature Gran % (Auto) Neut % (Auto) Lymph % (Auto) [place] % (Auto) Eos % (Auto) Baso % (Auto) Lymph # (Auto) [place] # (Auto) Eos # (Auto) Baso # (Auto) Abs Immat Gran (auto) Absolute Neuts (auto) Absolute Nucleated RBC Nucleated RBC % (auto) PT INR D-Dimer O2 Saturation 88.0 ABG pH at Pt Temp 7.38 ABG pH (Temp Correct) 7.39 ABG pCO2 at Pt Temp 56 H ABG pCO2 (Temp Corrct 55 H ABG pO2 at Pt Temp 65 L ABG pO2 (Temp Correct 63 L ABG HCO3 34 H ABG Base Excess (Actual) 7.6 VBG pH VBG pCO2 VBG pO2 VBG HCO3 VBG O2 Saturation VBG Base Excess Anion Gap Estim Creat Clear Calc Estimated GFR Random Glucose Calcium Total Bilirubin Direct Bilirubin AST ALT Alkaline Phosphatase Troponin I High Sens B-Natriuretic Peptide Total Protein Albumin Urine Color Urine Appearance Urine pH Ur Specific [place] Urine Protein Urine Glucose (UA) Urine Ketones Urine Blood Urine Nitrite Ur Leukocyte Esterase Urine RBC Urine WBC Ur Squamous Epith Cells Urine Bacteria Coronavirus (PCR) Influenza Type A (PCR) Influenza Type B (PCR) RSV RNA Qual (PCR) S. pyogenes GrpA GIOVANNI Imaging Radiologist's Impressions: Impressions Chest X-Ray 12/11/20 10:43 IMPRESSION: Enlarged cardiac silhouette and CHF. Chest CTA 12/11/20 13:51 IMPRESSION: No evidence of pulmonary embolism. Enlarged heart and small bilateral pleural effusions. Bilateral lower lobe atelectasis. VTE: negative Assessment and Plan (1) CHF (congestive heart failure): Qualifiers: Heart failure chronicity: unspecified Heart failure type: unspecified Qualified Code(s): I50.9 - Heart failure, unspecified Status: Acute 60-year-old female who presents to the hospital with lower leg swelling 1. Acute Hypoxemic/hypercarbic respiratory failure: lower extremity swelling/CHF exacerbation - most likely secondary to CHF exacerbation - she also has dyspnea, orthopnea and PND which suggest more of CHF than any other etiology Continue IV Lasix, patient received 1 dose of IV Lasix and has 500 mL in the urine bag. - daily weight, strict I&O, low-sodium diet - educated about avoiding salty food cardio eval ?also llower lung atelacatsis -added nebs and chest physiotherapy 2. diabetes - continue home insulin - diabetic diet - POC q.i.d. a.c. 3. hypertension -stable, continue amlodipine 4. GERD - continue omeprazole 4. hyperlipidemia - continue statin
[2020-12-11] MEDS: methylPREDNISolone Sod Succ 40 MG/ML VIAL IVPUSH (19:20)
--- NOTE | 2020-12-11 19:43 | HE.PHANOTE ---
Pharmacy Consult ? Medication Reconciliation Pharmacy has completed the medication reconciliation and there were no significant medication issues requiring provider attention. Patient's medications are overseen by joseph Pulido, and [facility] Kristofer Hendrix
[2020-12-11] MEDS: Albuterol/Iprat 2.5/0.5MG 3 ML AMPUL.NEB INHALE ×2 (20:41→23:57)
[2020-12-11 21:41] LABS: Glucose, Whole Blood 186 mg/dL (60-115)
[2020-12-11] MEDS: Enoxaparin Sodium 40 MG/0.4 ML SYRINGE SUBCUT (22:15)
[2020-12-11] MEDS: Insulin Lispro 100 UNIT/ML 3 ML VIAL SUBCUT (22:17)
[2020-12-12] VITALS (11 sets, daily range): BP systolic 112–144; BP diastolic 66–86; PULSE 76–109; RESP 18–23; TEMP 36.7–37.1; O2SAT 92–100; BMI 52.6
[2020-12-12] MEDS: 0.9 % Sodium Chloride Flush 3 ML SYRINGE IVFLUSH ×4 (00:07→23:43)
[2020-12-12] MEDS: Albuterol/Iprat 2.5/0.5MG 3 ML AMPUL.NEB INHALE ×5 (04:16→23:36)
[2020-12-12 06:48] LABS: B Type Natriuretic Peptide 286 pg/mL (<100)
[2020-12-12 07:12] LABS: Anion Gap 17 (12-20); Blood Urea Nitrogen 42 mg/dL (9-16); Calcium 8.3 mg/dL (8.4-10.2); Carbon Dioxide 26 mmol/L (22-29); Chloride 101 mmol/L (96-108); Creatinine Clr Calc Pharmacy 49.5; Estimated Glomerular Filt Rate 33; Glucose Random 567 mg/dL (60-115); Potassium 4.6 mmol/L (3.3-5.1); Sodium 139 mmol/L (135-145)
[2020-12-12 07:29] LABS: Glucose, Whole Blood 469 mg/dL (60-115)
[2020-12-12] MEDS: Insulin Lispro 100 UNIT/ML 3 ML VIAL SUBCUT ×3 (08:00→20:56)
[2020-12-12] MEDS: Insulin Glargine,Hum.rec.anlog 100 UNIT/ML 10 ML VIAL 65 UNIT SUBCUT (08:00)
[2020-12-12] MEDS: Insulin Lispro 100 UNIT/ML 3 ML VIAL 16 UNIT SUBCUT (08:00)
[2020-12-12] MEDS: Pregabalin 100 MG CAPSULE PO ×2 (08:02→20:54)
[2020-12-12] MEDS: TiZANidine HCL 4 MG TABLET PO ×2 (08:02→20:53)
[2020-12-12] MEDS: FLUoxetine HCl 20 MG CAPSULE 40 MG PO (08:02)
[2020-12-12] MEDS: Aspirin Enteric Coated 81 MG TABLET.DR PO (08:02)
[2020-12-12] MEDS: Cholecalciferol (Vitamin D3) 25 MCG TABLET 50 MCG PO (08:02)
[2020-12-12] MEDS: Metoprolol Succinate ER 50 MG TAB.ER.24H PO (08:03)
[2020-12-12] MEDS: Omeprazole 20 MG CAPSULE.DR PO (08:03)
[2020-12-12] MEDS: Isosorbide Mononitrate 30 MG TAB.ER.24H PO (08:04)
[2020-12-12] MEDS: traMADoL HCL 50 MG TABLET 100 MG PO ×2 (08:11→20:54)
[2020-12-12 08:41] LABS: Glucose, Whole Blood 441 mg/dL (60-115)
--- NOTE | 2020-12-12 09:30 | MHC.CM.PN ---
CM met with Patient at bedside. Patient is admitted from [facility] and does not want to return there. Per Patient's request, [facility] CM has initiated and will follow for dc planning.Patient lives alone, has a walker, and does not use O2 at home. Daughter/Ilana from [place] is the HCP and PCP is Dr Huber.
[2020-12-12 10:14] LABS: Glucose, Whole Blood 455 mg/dL (60-115)
--- NOTE | 2020-12-12 11:06 | PM.CNCAR ---
History of Present Illness History of Present Illness Date of Service: 12/12/20 Consult reason: congestive heart failure Chief complaint: CHF Excerbation Narrative: This is a cardiology consultation regarding congestive heart failure. She has a history of hypertension, diabetes, congestive heart failure, asthma who presents to the hospital with complaints of shortness of breath and leg swelling. For the last few days, she had apparently been getting more more short of breath and also gained almost 27 lb in weight. She has been noticing increasing leg swelling. This led to the hospitalization. From the cardiac standpoint otherwise she does not have any anginal-type symptoms. It seems she was given Lasix and trial of BiPAP. CTA had not shown any pulmonary embolism. We have been asked to see her for further management. Review of Systems Review of Systems: Yes all other systems are reviewed and are negative Cardiovascular: Cardiovascular: Reports as per HPI, Reports no additional cardiovascular complaints, Denies acrocyanosis, Denies cool extremities, Denies painful fingertips, Denies chest pain, Denies chest pain at rest, Denies diaphoresis, Denies syncope, Denies irregular heart rhythm, Denies claudication, Reports leg edema, Denies lightheadedness, Denies palpitations and Reports dyspnea Respiratory: Respiratory: Reports dyspnea Neurologic: Denies syncope Endocrine: Endocrine: Denies palpitations PMFSH Past Medical History Medical History (Updated 12/12/20 @ 11:10 by Tim Szymanski MD) Acute on chronic HFrEF (heart failure with reduced ejection fraction) FELICIA (acute kidney injury) Asthma delivery delivered CHF exacerbation Chronic pain Depression Diabetes Diabetic neuropathy, painful Diarrhea High cholesterol Hypertension Left ankle pain Leukocytosis Morbid obesity NICM (nonischemic cardiomyopathy) Swelling of lower extremity Surgical History Surgical History Hx of cholecystectomy Social History Social History Household Members: None Housing: Assisted Living Facility Housing Other:: [place] [facility] Do you presently have visiting nurse or other home services: Yes Alcohol intake: current Alcohol intake frequency: holidays/special occasions only Years Smoked: 38 Second Hand Smoke Exposure: No Use of substances other than those prescribed or required for medical reasons: No Substance Use Type: Marijuana Currently Displaying Signs/Symptoms of Drug Intoxication Withdrawal: No Have you been hit, kicked, punched, or otherwise hurt by someone within the past year? If so, by whom?: No Do you feel safe in your current relationship?: No Current Relationship Is there a partner from a previous relationship who is making you feel unsafe now?: No Are you made to feel afraid or neglected: No Advance Directives: No Advance Directives Information Provided: Yes Do you have thoughts of harming others: None Do you have a plan to hurt others: No Plan Recently lost weight without trying: No How much weight loss: Not applicable Eating poorly because of decreased appetite: No Nutrition screen score: 0 Nutrition Risks: No Nutritional Risk Patient : No : No Poor oral hygiene: No service: No Current occupational status: disabled Meds Allergies Allergy/AdvReac Type Severity Reaction Status Date / Time No Known Allergies Allergy Unverified 12/11/20 10:41 acetaminophen [Tylenol] AdvReac Unknown vommiting, Verified 11/22/20 21:28 itching ibuprofen AdvReac Unknown vommiting, Verified 11/22/20 21:28 itching morphine AdvReac Unknown vomiting Verified 11/22/20 21:28 Motrin Allergy Unknown itching Uncoded 09/21/19 00:00 Active Medications: Current Medications Generic Name Dose Route Start Last Admin Trade Name Freq PRN Reason Stop Dose Admin Albuterol/Ipratropium 3 ml 12/11/20 20:00 12/12/20 07:35 Albuterol/Iprat 2.5/0.5mg 3 Ml Ampul.Neb INHALE 3 ml RQ4H HI Administration Aspirin 81 mg 12/12/20 09:00 12/12/20 08:02 Aspirin Enteric Coated 81 Mg Tablet.Dr PO 81 mg DAILY HI Administration Atorvastatin Calcium 10 mg 12/12/20 21:00 Atorvastatin Calcium 10 Mg Tablet PO BEDTIME HI Enoxaparin Sodium 40 mg 12/11/20 20:00 12/11/20 22:15 Enoxaparin Sodium 40 Mg/0.4 Ml Syringe SUBCUT 40 mg Q24H HI Administration Fluoxetine HCl 40 mg 12/12/20 09:00 12/12/20 08:02 Fluoxetine Hcl 20 Mg Capsule PO 40 mg DAILY HI Administration Fluticasone Propionate 2 puff 12/12/20 08:00 12/12/20 09:12 Fluticasone Propionate 100 Mcg Blst.W.Dev INHALE Not Given RBID [facility] Insulin Glargine 65 unit 12/12/20 09:00 12/12/20 08:00 Insulin Glargine,Hum.Rec.Anlog 100 Unit/Ml 10 Ml Vial SUBCUT 65 unit DAILY [facility] Administration Insulin Human Lispro 0 unit 12/11/20 21:00 12/12/20 08:01 Insulin Lispro 100 Unit/Ml 3 Ml Vial SUBCUT Not Given QIDACHS [facility] Protocol Isosorbide Mononitrate 30 mg 12/12/20 09:00 12/12/20 08:04 Isosorbide Mononitrate 30 Mg Tab.Er.24h PO 30 mg DAILY [facility] Administration Protocol Metoprolol Succinate 50 mg 12/12/20 09:00 12/12/20 08:03 Metoprolol Succinate Er 50 Mg Tab.Er.24h PO 50 mg DAILY [facility] Administration Protocol Omeprazole 20 mg 12/12/20 08:00 12/12/20 08:03 Omeprazole 20 Mg Capsule. PO 20 mg DAILY@0630 [facility] Administration Pharmacy Consult 1 each 12/11/20 19:42 Consult Rx Perform Med Rec MISCELLANE ONCE PRN Consult order Pregabalin 100 mg 12/12/20 09:00 12/12/20 08:02 Pregabalin 100 Mg Capsule PO 100 mg BID [facility] Administration Sodium Chloride 3 ml 12/12/20 00:00 12/12/20 08:00 0.9 % Sodium Chloride Flush 3 Ml Syringe IVFLUSH 3 ml QSHIFT [facility] Administration Tizanidine HCl 4 mg 12/12/20 08:00 12/12/20 08:02 Tizanidine Hcl 4 Mg Tablet PO 4 mg BEDTIME [facility] Administration Tramadol HCl 100 mg 12/12/20 07:21 12/12/20 08:11 Tramadol Hcl 50 Mg Tablet PO 100 mg Q8H PRN Administration Pain Vitamin D 50 mcg 12/12/20 09:00 12/12/20 08:02 Cholecalciferol (Vitamin D3) 25 Mcg Tablet PO 50 mcg DAILY [facility] Administration Home Medications Medication Instructions Recorded Confirmed Last Taken Type Flovent HFA 2 puff INHALATION BID 11/23/20 12/11/20 12/11/20 History Lantus U-100 Insulin 80 unit SUBCUT BEDTIME 11/23/20 12/11/20 12/10/20 History albuterol sulfate [ProAir HFA] 2 puff INHALATION Q4H PRN 11/23/20 12/11/20 12/11/20 History amlodipine 10 mg PO DAILY 11/23/20 12/11/20 12/11/20 History aspirin 81 mg PO DAILY 11/23/20 12/11/20 12/11/20 History fluoxetine 40 mg PO DAILY 11/23/20 12/11/20 12/11/20 History furosemide 20 mg PO DAILY 11/23/20 12/11/20 12/11/20 History insulin lispro [Humalog U-100 See Rx Instructions .ROUTE .COMPLEX 11/23/20 12/11/20 11/22/20 History Insulin] metoprolol succinate 50 mg PO DAILY 11/23/20 12/11/20 12/11/20 History omeprazole 20 mg PO BEDTIME 11/23/20 12/11/20 12/10/20 History simvastatin 20 mg PO BEDTIME 11/23/20 12/11/20 12/10/20 History tramadol 100 mg PO Q8H PRN 11/23/20 12/11/20 12/10/20 History cholecalciferol (vitamin D3) 50 mcg PO DAILY 12/11/20 12/11/20 12/11/20 History isosorbide mononitrate 30 mg PO DAILY 12/11/20 12/11/20 12/11/20 History pregabalin [Lyrica] 100 mg PO BID 12/11/20 12/11/20 12/10/20 History tizanidine 4 mg PO BEDTIME 12/11/20 12/11/20 12/10/20 History Physical Exam Vital Signs: Vital Signs: Last Vital Signs Temp 98.5 F 12/12/20 08:00 Pulse 109 H 12/12/20 08:04 Resp 22 H 12/12/20 08:00 BP 128/68 12/12/20 08:04 Pulse Ox 92 12/12/20 08:00 Body Mass Index 52.6 Results Labs and Meds Result diagrams: 12/11/20 10:53 12/12/20 05:45 Lab results: Laboratory Results - last 24 hr 12/11/20 12/11/20 12/11/20 10:51 10:53 10:53 WBC 9.7 RBC 3.67 L Hgb 9.7 L Hct 33.9 L MCV 92.4 MCH 26.4 L MCHC 28.6 L RDW 15.8 Plt Count 192 MPV 9.3 L Immature Gran % (Auto) 0.6 H Neut % (Auto) 78.8 H Lymph % (Auto) 12.1 L Hinds % (Auto) 6.8 Eos % (Auto) 1.5 Baso % (Auto) 0.2 Lymph # (Auto) 1.2 Hinds # (Auto) 0.7 Eos # (Auto) 0.1 Baso # (Auto) 0.0 Abs Immat Gran (auto) 0.06 H Absolute Neuts (auto) 7.6 Absolute Nucleated RBC 0.000 Nucleated RBC % (auto) 0.0 PT 11.7 INR 1.0 D-Dimer 670 O2 Saturation ABG pH at Pt Temp ABG pH (Temp Correct) ABG pCO2 at Pt Temp ABG pCO2 (Temp Corrct ABG pO2 at Pt Temp ABG pO2 (Temp Correct ABG HCO3 ABG Base Excess (Actual) VBG pH Cancelled VBG pCO2 Cancelled VBG pO2 Cancelled VBG HCO3 Cancelled VBG O2 Saturation Cancelled VBG Base Excess Cancelled Sodium Potassium Chloride Carbon Dioxide Anion Gap BUN Creatinine Estim Creat Clear Calc Estimated GFR POC Glucose Random Glucose Calcium Total Bilirubin Direct Bilirubin AST ALT Alkaline Phosphatase Troponin I High Sens B-Natriuretic Peptide Total Protein Albumin Urine Color Urine Appearance Urine pH Ur Specific [place] Urine Protein Urine Glucose (UA) Urine Ketones Urine Blood Urine Nitrite Ur Leukocyte Esterase Urine RBC Urine WBC Ur Squamous Epith Cells Urine Bacteria Coronavirus (PCR) Influenza Type A (PCR) Influenza Type B (PCR) RSV RNA Qual (PCR) S. pyogenes GrpA GIOVANNI 12/11/20 12/11/20 12/11/20 10:53 10:53 11:09 WBC RBC Hgb Hct MCV MCH MCHC RDW Plt Count MPV Immature Gran % (Auto) Neut % (Auto) Lymph % (Auto) Hinds % (Auto) Eos % (Auto) Baso % (Auto) Lymph # (Auto) Hinds # (Auto) Eos # (Auto) Baso # (Auto) Abs Immat Gran (auto) Absolute Neuts (auto) Absolute Nucleated RBC Nucleated RBC % (auto) PT INR D-Dimer O2 Saturation ABG pH at Pt Temp ABG pH (Temp Correct) ABG pCO2 at Pt Temp ABG pCO2 (Temp Corrct ABG pO2 at Pt Temp ABG pO2 (Temp Correct ABG HCO3 ABG Base Excess (Actual) VBG pH 7.29 L VBG pCO2 70 VBG pO2 58 VBG HCO3 34 H VBG O2 Saturation 80.0 VBG Base Excess 6.2 Sodium 144 Potassium 4.5 Chloride 106 Carbon Dioxide 28 Anion Gap 15 BUN 35 H D Creatinine 1.22 Estim Creat Clear Calc 64.9 Estimated GFR 45 POC Glucose Random Glucose 207 H Calcium 8.6 Total Bilirubin 0.6 Direct Bilirubin 0.2 AST 14 ALT 13 Alkaline Phosphatase 87 Troponin I High Sens 6.2 B-Natriuretic Peptide 232 H Total Protein 6.8 Albumin 3.9 Urine Color Urine Appearance Urine pH Ur Specific [place] Urine Protein Urine Glucose (UA) Urine Ketones Urine Blood Urine Nitrite Ur Leukocyte Esterase Urine RBC Urine WBC Ur Squamous Epith Cells Urine Bacteria Coronavirus (PCR) Influenza Type A (PCR) Influenza Type B (PCR) RSV RNA Qual (PCR) S. pyogenes GrpA GIOVANNI 12/11/20 12/11/20 12/11/20 11:30 12:16 17:45 WBC RBC Hgb Hct MCV MCH MCHC RDW Plt Count MPV Immature Gran % (Auto) Neut % (Auto) Lymph % (Auto) Hinds % (Auto) Eos % (Auto) Baso % (Auto) Lymph # (Auto) Hinds # (Auto) Eos # (Auto) Baso # (Auto) Abs Immat Gran (auto) Absolute Neuts (auto) Absolute Nucleated RBC Nucleated RBC % (auto) PT INR D-Dimer O2 Saturation ABG pH at Pt Temp ABG pH (Temp Correct) ABG pCO2 at Pt Temp ABG pCO2 (Temp Corrct ABG pO2 at Pt Temp ABG pO2 (Temp Correct ABG HCO3 ABG Base Excess (Actual) VBG pH VBG pCO2 VBG pO2 VBG HCO3 VBG O2 Saturation VBG Base Excess Sodium Potassium Chloride Carbon Dioxide Anion Gap BUN Creatinine Estim Creat Clear Calc Estimated GFR POC Glucose Random Glucose Calcium Total Bilirubin Direct Bilirubin AST ALT Alkaline Phosphatase Troponin I High Sens B-Natriuretic Peptide Total Protein Albumin Urine Color STRAW Urine Appearance CLEAR Urine pH 5.5 Ur Specific [place] 1.015 Urine Protein NEG Urine Glucose (UA) NEG Urine Ketones NEG Urine Blood NEG Urine Nitrite NEG Ur Leukocyte Esterase NEG Urine RBC 0-2 Urine WBC 0 Ur Squamous Epith Cells TRACE Urine Bacteria NONE Coronavirus (PCR) NEGATIVE Influenza Type A (PCR) NEGATIVE Influenza Type B (PCR) NEGATIVE RSV RNA Qual (PCR) NEGATIVE S. pyogenes GrpA GIOVANNI Negative 12/11/20 12/11/20 12/12/20 18:22 21:36 05:45 WBC RBC Hgb Hct MCV MCH MCHC RDW Plt Count MPV Immature Gran % (Auto) Neut % (Auto) Lymph % (Auto) Hinds % (Auto) Eos % (Auto) Baso % (Auto) Lymph # (Auto) Hinds # (Auto) Eos # (Auto) Baso # (Auto) Abs Immat Gran (auto) Absolute Neuts (auto) Absolute Nucleated RBC Nucleated RBC % (auto) PT INR D-Dimer O2 Saturation 88.0 ABG pH at Pt Temp 7.38 ABG pH (Temp Correct) 7.39 ABG pCO2 at Pt Temp 56 H ABG pCO2 (Temp Corrct 55 H ABG pO2 at Pt Temp 65 L ABG pO2 (Temp Correct 63 L ABG HCO3 34 H ABG Base Excess (Actual) 7.6 VBG pH VBG pCO2 VBG pO2 VBG HCO3 VBG O2 Saturation VBG Base Excess Sodium 139 Potassium 4.6 Chloride 101 Carbon Dioxide 26 Anion Gap 17 BUN 42 H Creatinine 1.59 H Estim Creat Clear Calc 49.5 Estimated GFR 33 POC Glucose 186 H Random Glucose 567 H* Calcium 8.3 L Total Bilirubin Direct Bilirubin AST ALT Alkaline Phosphatase Troponin I High Sens B-Natriuretic Peptide Total Protein Albumin Urine Color Urine Appearance Urine pH Ur Specific [place] Urine Protein Urine Glucose (UA) Urine Ketones Urine Blood Urine Nitrite Ur Leukocyte Esterase Urine RBC Urine WBC Ur Squamous Epith Cells Urine Bacteria Coronavirus (PCR) Influenza Type A (PCR) Influenza Type B (PCR) RSV RNA Qual (PCR) S. pyogenes GrpA GIOVANNI 12/12/20 12/12/20 12/12/20 05:45 07:16 08:29 WBC RBC Hgb Hct MCV MCH MCHC RDW Plt Count MPV Immature Gran % (Auto) Neut % (Auto) Lymph % (Auto) Hinds % (Auto) Eos % (Auto) Baso % (Auto) Lymph # (Auto) Hinds # (Auto) Eos # (Auto) Baso # (Auto) Abs Immat Gran (auto) Absolute Neuts (auto) Absolute Nucleated RBC Nucleated RBC % (auto) PT INR D-Dimer O2 Saturation ABG pH at Pt Temp ABG pH (Temp Correct) ABG pCO2 at Pt Temp ABG pCO2 (Temp Corrct ABG pO2 at Pt Temp ABG pO2 (Temp Correct ABG HCO3 ABG Base Excess (Actual) VBG pH VBG pCO2 VBG pO2 VBG HCO3 VBG O2 Saturation VBG Base Excess Sodium Potassium Chloride Carbon Dioxide Anion Gap BUN Creatinine Estim Creat Clear Calc Estimated GFR POC Glucose 469 H* 441 H* Random Glucose Calcium Total Bilirubin Direct Bilirubin AST ALT Alkaline Phosphatase Troponin I High Sens B-Natriuretic Peptide 286 H Total Protein Albumin Urine Color Urine Appearance Urine pH Ur Specific [place] Urine Protein Urine Glucose (UA) Urine Ketones Urine Blood Urine Nitrite Ur Leukocyte Esterase Urine RBC Urine WBC Ur Squamous Epith Cells Urine Bacteria Coronavirus (PCR) Influenza Type A (PCR) Influenza Type B (PCR) RSV RNA Qual (PCR) S. pyogenes GrpA GIOVANNI 12/12/20 10:10 WBC RBC Hgb Hct MCV MCH MCHC RDW Plt Count MPV Immature Gran % (Auto) Neut % (Auto) Lymph % (Auto) Hinds % (Auto) Eos % (Auto) Baso % (Auto) Lymph # (Auto) Hinds # (Auto) Eos # (Auto) Baso # (Auto) Abs Immat Gran (auto) Absolute Neuts (auto) Absolute Nucleated RBC Nucleated RBC % (auto) PT INR D-Dimer O2 Saturation ABG pH at Pt Temp ABG pH (Temp Correct) ABG pCO2 at Pt Temp ABG pCO2 (Temp Corrct ABG pO2 at Pt Temp ABG pO2 (Temp Correct ABG HCO3 ABG Base Excess (Actual) VBG pH VBG pCO2 VBG pO2 VBG HCO3 VBG O2 Saturation VBG Base Excess Sodium Potassium Chloride Carbon Dioxide Anion Gap BUN Creatinine Estim Creat Clear Calc Estimated GFR POC Glucose 455 H* Random Glucose Calcium Total Bilirubin Direct Bilirubin AST ALT Alkaline Phosphatase Troponin I High Sens B-Natriuretic Peptide Total Protein Albumin Urine Color Urine Appearance Urine pH Ur Specific [place] Urine Protein Urine Glucose (UA) Urine Ketones Urine Blood Urine Nitrite Ur Leukocyte Esterase Urine RBC Urine WBC Ur Squamous Epith Cells Urine Bacteria Coronavirus (PCR) Influenza Type A (PCR) Influenza Type B (PCR) RSV RNA Qual (PCR) S. pyogenes GrpA GIOVANNI ECG Attestation: I personally reviewed and interpreted this ECG as follows: Interpretation: EKG with sinus rhythm, 89/Min; PVCs; prolonged QT. QTc seems more prolonged compared to office EKG. Imaging Radiologist's impression: Impressions Chest X-Ray 12/11/20 10:43 IMPRESSION: Enlarged cardiac silhouette and CHF. Chest CTA 12/11/20 13:51 IMPRESSION: No evidence of pulmonary embolism. Enlarged heart and small bilateral pleural effusions. Bilateral lower lobe atelectasis. VTE: negative Assessment and Plan (1) Acute on chronic combined systolic and diastolic CHF (congestive heart failure): Status: Acute (2) NICM (nonischemic cardiomyopathy): Status: Acute (3) Acute hypercapnic respiratory failure: Status: Acute Most recent echocardiogram from this month shows LVEF of 40-45% and moderate mitral annular calcification. Echocardiogram from last year had LVEF of 50-55%. Cardiac catheterization from 2018 shows essentially normal coronary arteries. RCA was not well visualized. Labs reviewed. Creatinine is 1.59. BUN is 42. High sensitivity troponin 6.2. Cardiac BNP 286. CTA chest shows no evidence of pulmonary embolism. Enlarged heart and small bilateral pleural effusions and bilateral lower lobe atelectasis. ABG is also abnormal with pCO2 of 56; bicarbonate 34, pH in the VBG was 7.29. Empiric IV diuretics. Otherwise, she previously had ischemia workup no further testing at this time. Will follow up with you. Procedures Date of Service Date of Service: 12/12/20
[2020-12-12 11:24] LABS: Glucose, Whole Blood 564 mg/dL (60-115)
[2020-12-12] MEDS: Insulin Lispro 100 UNIT/ML 3 ML VIAL 10 UNIT SUBCUT (12:20)
--- NOTE | 2020-12-12 12:21 | PM.CNNEP ---
History of Present Illness Reason for Consult Consult date: 12/12/20 Reason for consult: CKD Chief Complaint Chief complaint: CHF Excerbation History of Present Illness Narrative: 60-year-old female with past medical history of see history HTN, DM, CHF HLD, depression, asthma, who presents to the hospital with complaints sob and leg swelling. These symptoms from almost a week . She has been non compliant with diet and fluid intake. In the emergency room patient was given p.o. Lasix and trial of bipap-seems improving after that, initial VBG had shown hypercarbic and low pH 7.29 but afterwards 7.39 and pCO2 went down from 70 to 56. She underwent CTA which is negative for pulmonary embolism, also shows pulmonary effusions small as well as bibasilar atelectasis, elevated BNP than baseline. Patient denies any chest pain or abdominal pain or fever or chills or weakness numbness or diarrhea or headache or nausea or vomiting or any pain. Nephrology has been consulted to assist in her clinical care during her current hospital stay Review of Systems Review of Systems Yes all other systems are reviewed and are negative [facility] Past Medical History Medical History (Updated 12/12/20 @ 12:26 by Walt Cevallos MD) Acute on chronic HFrEF (heart failure with reduced ejection fraction) FELICIA (acute kidney injury) Asthma delivery delivered CHF exacerbation Chronic pain Depression Diabetes Diabetic neuropathy, painful Diarrhea High cholesterol Hypertension Left ankle pain Leukocytosis Morbid obesity NICM (nonischemic cardiomyopathy) Swelling of lower extremity Surgical History Surgical History Hx of cholecystectomy Social History Social History Household Members: None Housing: Assisted Living Facility Housing Other:: [facility] Do you presently have visiting nurse or other home services: Yes Alcohol intake: current Alcohol intake frequency: holidays/special occasions only Years Smoked: 38 Second Hand Smoke Exposure: No Use of substances other than those prescribed or required for medical reasons: No Substance Use Type: Marijuana Currently Displaying Signs/Symptoms of Drug Intoxication Withdrawal: No Have you been hit, kicked, punched, or otherwise hurt by someone within the past year? If so, by whom?: No Do you feel safe in your current relationship?: No Current Relationship Is there a partner from a previous relationship who is making you feel unsafe now?: No Are you made to feel afraid or neglected: No Advance Directives: No Advance Directives Information Provided: Yes Do you have thoughts of harming others: None Do you have a plan to hurt others: No Plan Recently lost weight without trying: No How much weight loss: Not applicable Eating poorly because of decreased appetite: No Nutrition screen score: 0 Nutrition Risks: No Nutritional Risk Patient : No : No Poor oral hygiene: No service: No Current occupational status: disabled Meds Allergies Allergy/AdvReac Type Severity Reaction Status Date / Time No Known Allergies Allergy Unverified 12/11/20 10:41 acetaminophen [Tylenol] AdvReac Unknown vommiting, Verified 11/22/20 21:28 itching ibuprofen AdvReac Unknown vommiting, Verified 11/22/20 21:28 itching morphine AdvReac Unknown vomiting Verified 11/22/20 21:28 Motrin Allergy Unknown itching Uncoded 09/21/19 00:00 Active Medications: Current Medications Generic Name Dose Route Start Last Admin Trade Name Pankaj PRN Reason Stop Dose Admin Albuterol/Ipratropium 3 ml 12/11/20 20:00 12/12/20 11:09 Albuterol/Iprat 2.5/0.5mg 3 Ml Ampul.Neb INHALE 3 ml RQ4H HI Administration Aspirin 81 mg 12/12/20 09:00 12/12/20 08:02 Aspirin Enteric Coated 81 Mg Tablet.Dr PO 81 mg DAILY HI Administration Atorvastatin Calcium 10 mg 12/12/20 21:00 Atorvastatin Calcium 10 Mg Tablet PO BEDTIME HI Enoxaparin Sodium 40 mg 12/11/20 20:00 12/11/20 22:15 Enoxaparin Sodium 40 Mg/0.4 Ml Syringe SUBCUT 40 mg Q24H HI Administration Fluoxetine HCl 40 mg 12/12/20 09:00 12/12/20 08:02 Fluoxetine Hcl 20 Mg Capsule PO 40 mg DAILY HI Administration Fluticasone Propionate 2 puff 12/12/20 08:00 12/12/20 09:12 Fluticasone Propionate 100 Mcg Blst.W.Dev INHALE Not Given RBID [facility] Insulin Glargine 65 unit 12/12/20 09:00 12/12/20 08:00 Insulin Glargine,Hum.Rec.Anlog 100 Unit/Ml 10 Ml Vial SUBCUT 65 unit DAILY [facility] Administration Insulin Human Lispro 0 unit 12/11/20 21:00 12/12/20 12:08 Insulin Lispro 100 Unit/Ml 3 Ml Vial SUBCUT 10 unit QIDACHS [facility] Administration Protocol Insulin Human Lispro 10 unit 12/12/20 16:30 12/12/20 12:20 Insulin Lispro 100 Unit/Ml 3 Ml Vial SUBCUT 10 unit QIDAS [facility] Administration Isosorbide Mononitrate 30 mg 12/12/20 09:00 12/12/20 08:04 Isosorbide Mononitrate 30 Mg Tab.Er.24h PO 30 mg DAILY [facility] Administration Protocol Metoprolol Succinate 50 mg 12/12/20 09:00 12/12/20 08:03 Metoprolol Succinate Er 50 Mg Tab.Er.24h PO 50 mg DAILY [facility] Administration Protocol Omeprazole 20 mg 12/12/20 08:00 12/12/20 08:03 Omeprazole 20 Mg Capsule.Dr PO 20 mg DAILY@0630 [facility] Administration Pharmacy Consult 1 each 12/11/20 19:42 Consult Rx Perform Med Rec MISCELLANE ONCE PRN Consult order Pregabalin 100 mg 12/12/20 09:00 12/12/20 08:02 Pregabalin 100 Mg Capsule PO 100 mg BID [facility] Administration Sodium Chloride 3 ml 12/12/20 00:00 12/12/20 08:00 0.9 % Sodium Chloride Flush 3 Ml Syringe IVFLUSH 3 ml QSHIFT [facility] Administration Tizanidine HCl 4 mg 12/12/20 08:00 12/12/20 08:02 Tizanidine Hcl 4 Mg Tablet PO 4 mg BEDTIME [facility] Administration Tramadol HCl 100 mg 12/12/20 07:21 12/12/20 08:11 Tramadol Hcl 50 Mg Tablet PO 100 mg Q8H PRN Administration Pain Vitamin D 50 mcg 12/12/20 09:00 12/12/20 08:02 Cholecalciferol (Vitamin D3) 25 Mcg Tablet PO 50 mcg DAILY [facility] Administration Home Medications Medication Instructions Recorded Confirmed Last Taken Type Flovent HFA 2 puff INHALATION BID 11/23/20 12/11/20 12/11/20 History Lantus U-100 Insulin 80 unit SUBCUT BEDTIME 11/23/20 12/11/20 12/10/20 History albuterol sulfate [ProAir HFA] 2 puff INHALATION Q4H PRN 11/23/20 12/11/20 12/11/20 History amlodipine 10 mg PO DAILY 11/23/20 12/11/20 12/11/20 History aspirin 81 mg PO DAILY 11/23/20 12/11/20 12/11/20 History fluoxetine 40 mg PO DAILY 11/23/20 12/11/20 12/11/20 History furosemide 20 mg PO DAILY 11/23/20 12/11/20 12/11/20 History insulin lispro [Humalog U-100 See Rx Instructions .ROUTE .COMPLEX 11/23/20 12/11/20 11/22/20 History Insulin] metoprolol succinate 50 mg PO DAILY 11/23/20 12/11/20 12/11/20 History omeprazole 20 mg PO BEDTIME 11/23/20 12/11/20 12/10/20 History simvastatin 20 mg PO BEDTIME 11/23/20 12/11/20 12/10/20 History tramadol 100 mg PO Q8H PRN 11/23/20 12/11/20 12/10/20 History cholecalciferol (vitamin D3) 50 mcg PO DAILY 12/11/20 12/11/20 12/11/20 History isosorbide mononitrate 30 mg PO DAILY 12/11/20 12/11/20 12/11/20 History pregabalin [Lyrica] 100 mg PO BID 12/11/20 12/11/20 12/10/20 History tizanidine 4 mg PO BEDTIME 12/11/20 12/11/20 12/10/20 History Physical Exam Vital Signs: Last Vital Signs Temp 98.1 F 12/12/20 11:44 Pulse 96 12/12/20 11:44 Resp 23 H 12/12/20 11:44 BP 125/67 12/12/20 11:44 Pulse Ox 97 12/12/20 11:44 Body Mass Index 52.6 Const General: awake Neck Neck: Yes supple Resp Auscultation: diminished lung sounds Cardio Rate: regular rate GI Palpation (GI): Soft to palpation Neuro General: moves all extremities Results Lab Results Result Diagrams: 12/11/20 10:53 12/12/20 05:45 Lab results: Chemistry 12/11/20 12/12/20 10:53 05:45 Sodium 144 139 Potassium 4.5 4.6 Carbon Dioxide 28 26 BUN 35 H D 42 H Creatinine 1.22 1.59 H Calcium 8.6 8.3 L Hematology 12/11/20 10:53 WBC 9.7 Hgb 9.7 L Plt Count 192 Urinalysis 12/11/20 11:30 Urine Color STRAW Urine Appearance CLEAR Urine pH 5.5 Ur Specific [place] 1.015 Urine Protein NEG Urine Glucose (UA) NEG Urine Ketones NEG Urine Blood NEG Urine Nitrite NEG Ur Leukocyte Esterase NEG Urine RBC 0-2 Urine WBC 0 Ur Squamous Epith Cells TRACE Assessment and Plan (1) CKD (chronic kidney disease) stage 3, GFR 30-59 ml/min: Status: Acute Has CKD at baseline. Fluctuation in serum creatinine due to compromise in renal perfusion Hypervolemic. Also underwent CTA.Needs diuresis. Needs to be compliant with diet and fluid Monitor serum creatinine closely given she underwent CTA with ? CR Syndrome Shall continue supportive care for now. Labs AM. Shall F/U Procedures Date of Service Date of Service: 12/12/20
--- NOTE | 2020-12-12 12:41 | P.PNIM_ITS ---
Subjective Subjective Date of Service: 12/12/20 Interval History: chf , mild hyperosmolar/hyperglycemia Review of Systems Says that shortness of breath improving, still drinking juice I explained to her that is not recommended says since her sugars are running high. Denies any chest pain or abdominal pain or nausea or vomiting or diarrhea. Last night insisted to take Elliott out even though night staff explained to her that I/o need to be monitored. Denies any fever or chills or any new weakness or numbness. Feeling more better than yesterday Physical Exam Vital Signs: Vital Signs: Last Vital Signs Temp 98.1 F 12/12/20 11:44 Pulse 96 12/12/20 11:44 Resp 23 H 12/12/20 11:44 BP 125/67 12/12/20 11:44 Pulse Ox 97 12/12/20 11:44 Body Mass Index 52.6 Physical exam: Constitutional: Not in acute distress. Cvs: rrr, [id number] , no murmur res:fair air entry, slightly diminshed at bases. abd: no rebound or guarding ,nt, bs present. ext pulses present , no cyanosis neuro: axo3 , nonfocal. Objective Data Current Medications Generic Name Dose Route Start Last Admin Trade Name Freq PRN Reason Stop Dose Admin Albuterol/Ipratropium 3 ml 12/11/20 20:00 12/12/20 11:09 Albuterol/Iprat 2.5/0.5mg 3 Ml Ampul.Neb INHALE 3 ml RQ4H HI Administration Aspirin 81 mg 12/12/20 09:00 12/12/20 08:02 Aspirin Enteric Coated 81 Mg Tablet. PO 81 mg DAILY HI Administration Atorvastatin Calcium 10 mg 12/12/20 21:00 Atorvastatin Calcium 10 Mg Tablet PO BEDTIME HI Enoxaparin Sodium 40 mg 12/11/20 20:00 12/11/20 22:15 Enoxaparin Sodium 40 Mg/0.4 Ml Syringe SUBCUT 40 mg Q24H HI Administration Fluoxetine HCl 40 mg 12/12/20 09:00 12/12/20 08:02 Fluoxetine Hcl 20 Mg Capsule PO 40 mg DAILY HI Administration Fluticasone Propionate 2 puff 12/12/20 08:00 12/12/20 09:12 Fluticasone Propionate 100 Mcg Blst.W.Dev INHALE Not Given RBID [facility] Insulin Human Regular 100 unit in 100 mls @ 0 mls/hr 12/12/20 12:30 Myxredlin IVCONT .Q0M [facility] Protocol Per Protocol Isosorbide Mononitrate 30 mg 12/12/20 09:00 12/12/20 08:04 Isosorbide Mononitrate 30 Mg Tab.Er.24h PO 30 mg DAILY HI Administration Protocol Metoprolol Succinate 50 mg 12/12/20 09:00 12/12/20 08:03 Metoprolol Succinate Er 50 Mg Tab.Er.24h PO 50 mg DAILY [facility] Administration Protocol Omeprazole 20 mg 12/12/20 08:00 12/12/20 08:03 Omeprazole 20 Mg Capsule.Dr PO 20 mg DAILY@0630 [facility] Administration Pharmacy Consult 1 each 12/11/20 19:42 Consult Rx Perform Med Rec MISCELLANE ONCE PRN Consult order Pregabalin 100 mg 12/12/20 09:00 12/12/20 08:02 Pregabalin 100 Mg Capsule PO 100 mg BID HI Administration Sodium Chloride 3 ml 12/12/20 00:00 12/12/20 08:00 0.9 % Sodium Chloride Flush 3 Ml Syringe IVFLUSH 3 ml QSHIFT [facility] Administration Tizanidine HCl 4 mg 12/12/20 08:00 12/12/20 08:02 Tizanidine Hcl 4 Mg Tablet PO 4 mg BEDTIME HI Administration Tramadol HCl 100 mg 12/12/20 07:21 12/12/20 08:11 Tramadol Hcl 50 Mg Tablet PO 100 mg Q8H PRN Administration Pain Vitamin D 50 mcg 12/12/20 09:00 12/12/20 08:02 Cholecalciferol (Vitamin D3) 25 Mcg Tablet PO 50 mcg DAILY HI Administration Labs CBC & Chem 7: 12/11/20 10:53 12/12/20 05:45 Assessment and Plan (1) CKD (chronic kidney disease) stage 3, GFR 30-59 ml/min: Status: Acute (2) Hyperglycemia: Status: Acute Assessment and Plan: 60-year-old female who presents to the hospital with lower leg swelling 1. Hyperosmolar and persistent hyperglycemia: Patient was given 2 x 20 unit of Humalog but her sugars are still in 400-500 range Discussed with ICU-patient will need to go to ICU for IV insulin drip which is added and closely monitoring fingersticks as well as BMP as needed, we have added another Bmp 2 .Acute Hypoxemic/hypercarbic respiratory failure: lower extremity swelling/CHF exacerbation - most likely secondary to CHF exacerbation - sob seems improving bnp treding up Continue IV Lasix, seems like as per staff has full urine bag ( probable aroudn 1.5 liter), explained to the staff to give her urine bag so will have some measurement. - daily weight, strict I&O, low-sodium diet - educated about avoiding salty food, sugar snacks ?also lower lung atelacatsis -added nebs and chest physiotherapy 3. hypertension -stable, continue amlodipine 4. GERD - continue omeprazole 5. hyperlipidemia - continue statin 6 . asif vs ckd: cr is aroing 1.59 added nephro eval-for further management of CHF in the setting of CKD. Above management discussed in detail with ICU, due to multiple organ system issues including hyperosmolar with hyperglycemia persistent, CHF, CKD-patient to be monitored in ICU, time spent in the patient management is 60 minutes.
[2020-12-12 12:53] LABS: Anion Gap 16 (12-20); Blood Urea Nitrogen 48 mg/dL (9-16); Calcium 8.3 mg/dL (8.4-10.2); Carbon Dioxide 27 mmol/L (22-29); Chloride 101 mmol/L (96-108); Creatinine Clr Calc Pharmacy 47.3; Estimated Glomerular Filt Rate 32; Glucose Random 444 mg/dL (60-115); Potassium 4.7 mmol/L (3.3-5.1); Sodium 139 mmol/L (135-145)
[2020-12-12 14:27] LABS: Glucose, Whole Blood 323 mg/dL (60-115)
--- NOTE | 2020-12-12 15:40 | PC.NURSE ---
On arrival pt refusing care. Pt reports that she doesn't want to be in a unit that could receive covid pts. Pt became very aggitated and verbally abusive. Asked about exhaust fans in the hospital and needed to leave and go to another hospital. Requesting AMA. Called extension service supervisor. Perry at bedside. Pt verbally abusive to extension service supervisor. Offered her ice water and she accepted. Intermittently calling and yelling at daughter on phone. Slamming phone on side table. Publishing Manager called hospitalist to see if pt competent to leave. Pt requested wheelchair, I stated that I had to wait for extension service supervisor. Pt started yelling and i exited room to deescalate. Publishing Manager back upstairs and said pt cleared for ama. Presented paper to pt and she said she would'nt sign. Pt ripped off all leads and became violent. Security called. 1.5 hrs with case workers, security, nursing supervision, and nursing at bedside. Pt agreeing to stay as long as she has a female RN and a different floor.
--- NOTE | 2020-12-12 16:34 | MHC.CM.PN ---
CM was asked to meet with Patient after she was transferred to ICU r/t BS issues. This CM admitted Patient and fellow RN/ CM was following Patient throughout the day so both CM responded to Patient's request to speak with CM. Patient was upset about a variety of things (ie the Patient was anxious regarding the negative pressure device in the window for fear of Covid and Patient stated that the male Nurse who brought her to ICU was not sensitive to her needs (apparently Patient requested a w/c and was told no). Patient expressed her frustration and her desire to be dc. Patient was finally able to reach her Daughter, who agreed to come in and try to, work something out. CM reassured Patient that once she is medically cleared that she has a bed at her first choice facility/[facility]. Patient appeared comforted by knowing that her Daughter is on her way and the possibility of going to [facility] SN[facility] once medically cleared for dc. Patient asked to have her IV removed and a female Nurse/Tech was available to her. Extensive encouragement was given to consider not leaving AMA. Patient was calm at time of CM departure from Patient's room.
--- NOTE | 2020-12-12 16:36 | PM.CCN ---
Critical Care Event Note Summary Date of Service: 12/12/20 Code activated: No Narrative: This case had a high probability of a clinically significant, sudden, or life threatening deterioration of this patient's condition which required my full and direct attention, intervention and personal management. Critical Care Time (minutes): 20 Comment: She actually was not a critical care patient level this was a lady with hyperglycemia and before she was transferred down about 2 hours earlier received Lantus at 65 units before that time she had a glucose of 500 and my calculation for osmolarity was about 320 so it was a very borderline hyper a osmolarity situation and we were going to bring her down to expedite with a an insulin drip control of her p.o. intake which was excessive with sugared juices and upon arrival she refused our care a number of people spent a lot of time convincing her of the need to stay in the hospital she was upset insisting on leaving refused care she already removed her Elliott catheter so he had no means of following urinary volume and in that period of time that she sat here glucose came down to 323 she is no longer therefore hyper osmolality and is doing well with normal mental status and truly does not require IV insulin and can go back to a regular medical bed and be treated with Lantus and short-acting coverage at mealtime
[2020-12-12 20:18] LABS: Glucose, Whole Blood 187 mg/dL (60-115)
[2020-12-12] MEDS: Atorvastatin Calcium 10 MG TABLET PO (20:54)
[2020-12-12] MEDS: Insulin Glargine,Hum.rec.anlog 100 UNIT/ML 10 ML VIAL 40 UNIT SUBCUT (20:55)
[2020-12-12] MEDS: Enoxaparin Sodium 40 MG/0.4 ML SYRINGE SUBCUT (20:55)
--- NOTE | 2020-12-12 22:29 | PC.NURSE ---
Addendum entered by Christiana Wilkerson RN 12/13/20 02:22: 0214, poc 221, Dr. Forte made aware, no new orders at this time. Original Note: 2013, bedtime poc 187, 2 units Humalog to be administered per sliding scale. Patient has scheduled 60 units Lantus ordered for bedtime, Dr. Forte made aware of patient's blood sugar. Order changed for 40 units Lantus at bedtime. Per MD, recheck poc at 0200.
[2020-12-13] VITALS (10 sets, daily range): BP systolic 122–156; BP diastolic 63–77; PULSE 75–91; RESP 18–24; TEMP 35.7–36.6; O2SAT 88–94; BMI 52.4
[2020-12-13 02:18] LABS: Glucose, Whole Blood 221 mg/dL (60-115)
[2020-12-13] MEDS: Omeprazole 20 MG CAPSULE.DR PO (06:54)
[2020-12-13 07:15] LABS: Glucose, Whole Blood 219 mg/dL (60-115)
[2020-12-13] MEDS: Insulin Lispro 100 UNIT/ML 3 ML VIAL SUBCUT ×4 (07:27→20:58)
[2020-12-13] MEDS: Isosorbide Mononitrate 30 MG TAB.ER.24H PO (07:28)
[2020-12-13] MEDS: Aspirin Enteric Coated 81 MG TABLET.DR PO (07:29)
[2020-12-13] MEDS: Cholecalciferol (Vitamin D3) 25 MCG TABLET 50 MCG PO (07:29)
[2020-12-13] MEDS: FLUoxetine HCl 20 MG CAPSULE 40 MG PO (07:29)
[2020-12-13] MEDS: Metoprolol Succinate ER 50 MG TAB.ER.24H PO (07:29)
[2020-12-13] MEDS: Pregabalin 100 MG CAPSULE PO ×2 (07:29→20:56)
[2020-12-13] MEDS: 0.9 % Sodium Chloride Flush 3 ML SYRINGE IVFLUSH ×2 (07:32→15:25)
[2020-12-13] MEDS: Albuterol/Iprat 2.5/0.5MG 3 ML AMPUL.NEB INHALE ×2 (07:50→21:10)
[2020-12-13] MEDS: traMADoL HCL 50 MG TABLET 100 MG PO ×2 (09:34→18:16)
--- NOTE | 2020-12-13 10:01 | P.PNCA_ITS ---
Subjective Subjective Date of Service: 12/13/20 Interval history: About the same as yesterday. No specific complaints. Review of Systems Review of Systems Yes all other systems are reviewed and are negative Cardiovascular: Reports as per HPI, Reports no additional cardiovascular complaints, Denies acrocyanosis, Denies cool extremities, Denies painful finge rtips, Denies chest pain, Denies chest pain at rest, Denies diaphoresis, Denies syncope, Denies irregular heart rhythm, Denies claudication, Reports leg edema, Denies lightheadedness, Denies palpitations and Reports dyspnea Respiratory: Reports dyspnea Denies syncope Endocrine: Denies palpitations Physical Exam Vital Signs: Last Vital Signs Temp 96.4 F L 12/13/20 07:11 Pulse 91 12/13/20 07:52 Resp 18 12/13/20 07:11 BP 136/77 12/13/20 07:29 Pulse Ox 93 12/13/20 07:11 Body Mass Index 52.4 Const General: cooperative, comfortable and no acute distress Orientation/consciousness: patient oriented x3 HENFL Other: Unremarkable Neck Neck: Yes normal visual inspection Chest Chest palpation & inspection: normal inspection of the chest Resp Auscultation: clear to auscultation bilaterally, no crackles and no wheezes Cardio Jugular venous distension: no JVD Palpation: normal PMI Heart sounds: S1 normal heart sound present, S2 normal heart sound present, no gallops, no murmurs and no rubs GI Palpation (GI): Soft to palpation Back/Spine/Pelvis Other: unremarkable Skin General skin exam: no rashes or lesions noted Neuro General: patient oriented x3 Extrem General: Yes edema (2+) Psych Mental Status: mental status grossly normal Results Labs and Meds Result diagrams: 12/11/20 10:53 12/12/20 11:53 Lab results: Laboratory Results - last 24 hr 12/12/20 12/12/20 12/12/20 10:10 11:20 11:53 Sodium 139 Potassium 4.7 Chloride 101 Carbon Dioxide 27 Anion Gap 16 BUN 48 H Creatinine 1.66 H Estim Creat Clear Calc 47.3 Estimated GFR 32 POC Glucose 455 H* 564 H* Random Glucose 444 H* Calcium 8.3 L 12/12/20 12/12/20 12/13/20 14:22 20:14 02:14 Sodium Potassium Chloride Carbon Dioxide Anion Gap BUN Creatinine Estim Creat Clear Calc Estimated GFR POC Glucose 323 H 187 H 221 H Random Glucose Calcium 12/13/20 07:12 Sodium Potassium Chloride Carbon Dioxide Anion Gap BUN Creatinine Estim Creat Clear Calc Estimated GFR POC Glucose 219 H Random Glucose Calcium Progress Note: A&P Assessment and plan (1) Acute on chronic combined systolic and diastolic CHF (congestive heart failure): Status: Acute (2) NICM (nonischemic cardiomyopathy): Status: Acute (3) Acute hypercapnic respiratory failure: Status: Acute Assessment and Plan: Most recent echocardiogram from this month shows LVEF of 40-45% and moderate mitral annular calcification. Echocardiogram from last year had LVEF of 50-55%. Cardiac catheterization from 2018 shows essentially normal coronary arteries. RCA was not well visualized. Labs reviewed. Creatinine is 1.59. BUN is 42. High sensitivity troponin 6.2. Cardiac BNP 286. CTA chest shows no evidence of pulmonary embolism. Enlarged heart and small bilateral pleural effusions and bilateral lower lobe atelectasis. ABG is also abnormal with pCO2 of 56; bicarbonate 34, pH in the VBG was 7.29. Empiric diuretics. Otherwise, she previously had ischemia workup no further testing at this time. Will follow up with you. Fall Risk Details Current Medications: Current Medications Generic Name Dose Route Start Last Admin Trade Name Freq PRN Reason Stop Dose Admin Albuterol/Ipratropium 3 ml 12/11/20 20:00 12/13/20 07:50 Albuterol/Iprat 2.5/0.5mg 3 Ml Ampul.Neb INHALE 3 ml RQ4H HI Administration Aspirin 81 mg 12/12/20 09:00 12/13/20 07:29 Aspirin Enteric Coated 81 Mg Tablet. PO 81 mg DAILY HI Administration Atorvastatin Calcium 10 mg 12/12/20 21:00 12/12/20 20:54 Atorvastatin Calcium 10 Mg Tablet PO 10 mg BEDTIME HI Administration Enoxaparin Sodium 40 mg 12/11/20 20:00 12/12/20 20:55 Enoxaparin Sodium 40 Mg/0.4 Ml Syringe SUBCUT 40 mg Q24H HI Administration Fluoxetine HCl 40 mg 12/12/20 09:00 12/13/20 07:29 Fluoxetine Hcl 20 Mg Capsule PO 40 mg DAILY HI Administration Fluticasone Propionate 2 puff 12/12/20 08:00 12/13/20 07:53 Fluticasone Propionate 100 Mcg Blst.W.Dev INHALE Not Given RBID [facility] Insulin Glargine 65 unit 12/13/20 21:00 Insulin Glargine,Hum.Rec.Anlog 100 Unit/Ml 10 Ml Vial SUBCUT BEDTIME [facility] Insulin Human Lispro 0 unit 12/12/20 21:00 12/13/20 07:27 Insulin Lispro 100 Unit/Ml 3 Ml Vial SUBCUT 4 unit QIDACHS [facility] Administration Protocol Isosorbide Mononitrate 30 mg 12/12/20 09:00 12/13/20 07:28 Isosorbide Mononitrate 30 Mg Tab.Er.24h PO 30 mg DAILY [facility] Administration Protocol Metoprolol Succinate 50 mg 12/12/20 09:00 12/13/20 07:29 Metoprolol Succinate Er 50 Mg Tab.Er.24h PO 50 mg DAILY [facility] Administration Protocol Omeprazole 20 mg 12/12/20 08:00 12/13/20 06:54 Omeprazole 20 Mg Capsule.Dr PO 20 mg DAILY@0630 [facility] Administration Pharmacy Consult 1 each 12/11/20 19:42 Consult Rx Perform Med Rec MISCELLANE ONCE PRN Consult order Pregabalin 100 mg 12/12/20 09:00 12/13/20 07:29 Pregabalin 100 Mg Capsule PO 100 mg BID [facility] Administration Sodium Chloride 3 ml 12/12/20 00:00 12/13/20 07:32 0.9 % Sodium Chloride Flush 3 Ml Syringe IVFLUSH 3 ml QSHIFT [facility] Administration Tizanidine HCl 4 mg 12/12/20 08:00 12/12/20 20:53 Tizanidine Hcl 4 Mg Tablet PO 4 mg BEDTIME [facility] Administration Tramadol HCl 100 mg 12/12/20 07:21 12/13/20 09:34 Tramadol Hcl 50 Mg Tablet PO 100 mg Q8H PRN Administration Pain Vitamin D 50 mcg 12/12/20 09:00 12/13/20 07:29 Cholecalciferol (Vitamin D3) 25 Mcg Tablet PO 50 mcg DAILY [facility] Administration Time Spent With Patient Time: Total time spent is greater than 50% in coordination of care (as documented) at patient's floor/unit and/or counseling patient: Time with patient: less than 15 minutes Procedures Date of Service Date of Service: 12/13/20
[2020-12-13 11:19] LABS: Glucose, Whole Blood 228 mg/dL (60-115)
--- NOTE | 2020-12-13 12:16 | PM.PNNEP ---
Subjective Subjective Date of Service: 12/13/20 Interval history: Still dyspneic. Events noted. All recent data reviewed Physical Exam Vital Signs: Vital Signs: Last Vital Signs Temp 96.2 F L 12/13/20 11:15 Pulse 85 12/13/20 11:15 Resp 24 H 12/13/20 11:15 BP 146/70 H 12/13/20 11:15 Pulse Ox 92 12/13/20 11:15 Body Mass Index 52.4 Const: General: cooperative Orientation/consciousness: patient oriented x3 Neck: Neck: Yes supple Resp: Auscultation: diminished lung sounds Cardio: Rate: regular rate GI: Palpation (GI): Soft to palpation Neuro: General: patient oriented x3 and moves all extremities Objective Data Labs CBC & Chem 7: 12/11/20 10:53 12/12/20 11:53 Labs: Laboratory Results - last 24 hr 12/12/20 12/12/20 12/12/20 11:53 14:22 20:14 Sodium 139 Potassium 4.7 Chloride 101 Carbon Dioxide 27 Anion Gap 16 BUN 48 H Creatinine 1.66 H Estim Creat Clear Calc 47.3 Estimated GFR 32 POC Glucose 323 H 187 H Random Glucose 444 H* Calcium 8.3 L 12/13/20 12/13/20 12/13/20 02:14 07:12 11:17 Sodium Potassium Chloride Carbon Dioxide Anion Gap BUN Creatinine Estim Creat Clear Calc Estimated GFR POC Glucose 221 H 219 H 228 H Random Glucose Calcium Assessment & Plan Assessment and plan (1) CKD (chronic kidney disease) stage 3, GFR 30-59 ml/min: Status: Acute Assessment and Plan: Has CKD at baseline. Fluctuation in serum creatinine due to compromise in renal perfusion Hypervolemic. Also underwent CTA.Needs to be on IV lasix. Needs to be compliant with diet and fluid Monitor serum creatinine closely given she underwent CTA with ? CR Syndrome Shall continue supportive care for now. Labs AM. Shall F/U Time Spent With Patient Time: Total time spent is greater than 50% in coordination of care (as documented) at patient's floor/unit and/or counseling patient: Procedures Date of Service Date of Service: 12/13/20
--- NOTE | 2020-12-13 13:53 | P.PNIM_ITS ---
Subjective Subjective Date of Service: 12/14/20 Physical Exam Vital Signs: Vital Signs: Last Vital Signs Temp 96.2 F L 12/13/20 11:15 Pulse 85 12/13/20 11:15 Resp 24 H 12/13/20 11:15 BP 146/70 H 12/13/20 11:15 Pulse Ox 92 12/13/20 11:15 Body Mass Index 52.4 Constitutional: Not in acute distress. Cvs: [id number], [id number] , no murmur res:fair air entry, slightly diminshed at bases. abd: no rebound or guarding ,nt, bs present. ext pulses present , no cyanosis neuro: axo3 , nonfocal. Objective Data Current Medications Generic Name Dose Route Start Last Admin Trade Name Trungq PRN Reason Stop Dose Admin Albuterol/Ipratropium 3 ml 12/11/20 20:00 12/13/20 11:37 Albuterol/Iprat 2.5/0.5mg 3 Ml Ampul.Neb INHALE Not Given RQ4H [facility] Aspirin 81 mg 12/12/20 09:00 12/13/20 07:29 Aspirin Enteric Coated 81 Mg Tablet.Dr PO 81 mg DAILY HI Administration Atorvastatin Calcium 10 mg 12/12/20 21:00 12/12/20 20:54 Atorvastatin Calcium 10 Mg Tablet PO 10 mg BEDTIME HI Administration Enoxaparin Sodium 40 mg 12/11/20 20:00 12/12/20 20:55 Enoxaparin Sodium 40 Mg/0.4 Ml Syringe SUBCUT 40 mg Q24H HI Administration Fluoxetine HCl 40 mg 12/12/20 09:00 12/13/20 07:29 Fluoxetine Hcl 20 Mg Capsule PO 40 mg DAILY HI Administration Fluticasone Propionate 2 puff 12/12/20 08:00 12/13/20 07:53 Fluticasone Propionate 100 Mcg Blst.W.Dev INHALE Not Given RBID [facility] Insulin Glargine 65 unit 12/13/20 21:00 Insulin Glargine,Hum.Rec.Anlog 100 Unit/Ml 10 Ml Vial SUBCUT BEDTIME [facility] Insulin Human Lispro 0 unit 12/12/20 21:00 12/13/20 11:43 Insulin Lispro 100 Unit/Ml 3 Ml Vial SUBCUT 4 unit QIDACHS [facility] Administration Protocol Isosorbide Mononitrate 30 mg 12/12/20 09:00 12/13/20 07:28 Isosorbide Mononitrate 30 Mg Tab.Er.24h PO 30 mg DAILY [facility] Administration Protocol Metoprolol Succinate 50 mg 12/12/20 09:00 12/13/20 07:29 Metoprolol Succinate Er 50 Mg Tab.Er.24h PO 50 mg DAILY HI Administration Protocol Omeprazole 20 mg 12/12/20 08:00 12/13/20 06:54 Omeprazole 20 Mg Capsule.Dr PO 20 mg DAILY@0630 [facility] Administration Pharmacy Consult 1 each 12/11/20 19:42 Consult Rx Perform Med Rec MISCELLANE ONCE PRN Consult order Pregabalin 100 mg 12/12/20 09:00 12/13/20 07:29 Pregabalin 100 Mg Capsule PO 100 mg BID HI Administration Sodium Chloride 3 ml 12/12/20 00:00 12/13/20 07:32 0.9 % Sodium Chloride Flush 3 Ml Syringe IVFLUSH 3 ml QSHIFT HI Administration Tizanidine HCl 4 mg 12/12/20 08:00 12/12/20 20:53 Tizanidine Hcl 4 Mg Tablet PO 4 mg BEDTIME HI Administration Tramadol HCl 100 mg 12/12/20 07:21 12/13/20 09:34 Tramadol Hcl 50 Mg Tablet PO 100 mg Q8H PRN Administration Pain Vitamin D 50 mcg 12/12/20 09:00 12/13/20 07:29 Cholecalciferol (Vitamin D3) 25 Mcg Tablet PO 50 mcg DAILY HI Administration Labs CBC & Chem 7: 12/11/20 10:53 12/14/20 05:37 Assessment and Plan (1) CKD (chronic kidney disease) stage 3, GFR 30-59 ml/min: Status: Acute (2) CHF (congestive heart failure): Status: Acute (3) Hyperglycemia: Status: Acute Assessment and Plan: 60-year-old female who presents to the hospital with lower leg swelling 1. Hyperosmolar and persistent hyperglycemia: Yesterday fingersticks were running in 405 in range, required briefly IV insulin drip and subsequently improved now sugars are in 200-300 range For diabetes flower patient the Lantus adjusted to 60 since she has mild ASIF Continue to monitor fingersticks with coverage. Closely 2 .Acute Hypoxemic/hypercarbic respiratory failure: lower extremity swelling/CHF exacerbation - most likely secondary to CHF exacerbation - sob seems improving bnp treding up Patient was discussed with Cardiology and Nephrology: Will continue IV Lasix Monitor I/o closely ?also lower lung atelacatsis -added nebs and chest physiotherapy 3. hypertension -stable, continue amlodipine 4. GERD - continue omeprazole 5. hyperlipidemia - continue statin 6 . asif vs ckd: cr is aroing 1.59 added nephro eval-for further management of CHF in the setting of CKD. Above management discussed with patient and her daughter in detail length both understand and in agreement with above plan.
[2020-12-13] MEDS: Furosemide 40 MG/4 ML VIAL IVPUSH (15:25)
[2020-12-13 16:15] LABS: Glucose, Whole Blood 193 mg/dL (60-115)
--- NOTE | 2020-12-13 18:22 | PC.NURSE ---
SINCE LASIX 40 MG IVP WAS GIVEN AT 1525 PT HAS VOIDED 850 ML AND 1 INCONTINENT OF URINE. WILL CONTINUE TO MONITOR.
[2020-12-13 20:03] LABS: Glucose, Whole Blood 236 mg/dL (60-115)
[2020-12-13] MEDS: Fluticasone Propionate 100 MCG BLST.W.DEV 2 PUFF INHALE (20:21)
[2020-12-13] MEDS: Atorvastatin Calcium 10 MG TABLET PO (20:56)
[2020-12-13] MEDS: TiZANidine HCL 4 MG TABLET PO (20:56)
[2020-12-13] MEDS: Insulin Glargine,Hum.rec.anlog 100 UNIT/ML 10 ML VIAL 60 UNIT SUBCUT (20:57)
[2020-12-13] MEDS: Enoxaparin Sodium 40 MG/0.4 ML SYRINGE SUBCUT (20:59)
[2020-12-14] VITALS (13 sets, daily range): BP systolic 109–158; BP diastolic 63–85; PULSE 77–93; RESP 14–20; TEMP 36.2–36.9; O2SAT 92–97; BMI 52.8
[2020-12-14 00:35] LABS: Glucose, Whole Blood 151 mg/dL (60-115)
[2020-12-14] MEDS: Albuterol/Iprat 2.5/0.5MG 3 ML AMPUL.NEB INHALE ×3 (01:11→11:01)
[2020-12-14] MEDS: 0.9 % Sodium Chloride Flush 3 ML SYRINGE IVFLUSH ×4 (02:34→20:27)
--- NOTE | 2020-12-14 03:11 | PC.NURSE ---
Around 0200 pt had 22 beat vtach. pt asymptomatic and sleeping. aware.
--- NOTE | 2020-12-14 03:11 | PM.EVENT ---
Event Note Date of Service: 12/14/20 Event Note: NSVT: pt asymptomatic; on [employer]; Cardiology on board.
[2020-12-14] MEDS: Omeprazole 20 MG CAPSULE.DR PO (05:50)
[2020-12-14 06:19] LABS: Anion Gap 14 (12-20); Blood Urea Nitrogen 56 mg/dL (9-16); Calcium 8.4 mg/dL (8.4-10.2); Carbon Dioxide 27 mmol/L (22-29); Chloride 107 mmol/L (96-108); Creatinine Clr Calc Pharmacy 62.6; Estimated Glomerular Filt Rate 43; Glucose Random 94 mg/dL (60-115); Sodium 144 mmol/L (135-145)
[2020-12-14 06:26] LABS: B Type Natriuretic Peptide 220 pg/mL (<100)
[2020-12-14 07:04] LABS: Glucose, Whole Blood 74 mg/dL (60-115)
--- NOTE | 2020-12-14 07:20 | HO.PM.IMPN ---
Subjective Subjective Date of Service: 12/14/20 Interval History: brief episode of tachycardia Review of Systems Brief episode of tachycardia, Patient denies any chest pain or shortness of breath or abdominal pain or fever chills or cough or phlegm. Physical Exam Vital Signs: Vital Signs: Last Vital Signs Temp 97.1 F 12/14/20 07:18 Pulse 82 12/14/20 07:18 Resp 18 12/14/20 07:18 BP 149/63 H 12/14/20 07:18 Pulse Ox 92 12/14/20 07:18 Body Mass Index 52.8 Cvs: rrr, [id number] , no murmur res: clear to auscultation ,no rhonchii or wheezing abd: no rebound or guarding ,nt, bs present. ext pulses present , no cyanosis neuro: axo3 , nonfocal. Objective Data Current Medications Generic Name Dose Route Start Last Admin Trade Name Freq PRN Reason Stop Dose Admin Albuterol/Ipratropium 3 ml 12/11/20 20:00 12/14/20 04:25 Albuterol/Iprat 2.5/0.5mg 3 Ml Ampul.Neb INHALE Not Given RQ4H [facility] Aspirin 81 mg 12/12/20 09:00 12/13/20 07:29 Aspirin Enteric Coated 81 Mg Tablet.Dr PO 81 mg DAILY HI Administration Atorvastatin Calcium 10 mg 12/12/20 21:00 12/13/20 20:56 Atorvastatin Calcium 10 Mg Tablet PO 10 mg BEDTIME HI Administration Enoxaparin Sodium 40 mg 12/11/20 20:00 12/13/20 20:59 Enoxaparin Sodium 40 Mg/0.4 Ml Syringe SUBCUT 40 mg Q24H HI Administration Fluoxetine HCl 40 mg 12/12/20 09:00 12/13/20 07:29 Fluoxetine Hcl 20 Mg Capsule PO 40 mg DAILY HI Administration Fluticasone Propionate 2 puff 12/12/20 08:00 12/13/20 20:21 Fluticasone Propionate 100 Mcg Blst.W.Dev INHALE 2 puff RBID HI Administration Furosemide 40 mg 12/14/20 09:00 Furosemide 40 Mg/4 Ml Vial IVPUSH BID@0900,1800 [facility] Protocol Insulin Glargine 60 unit 12/13/20 21:00 12/13/20 20:57 Insulin Glargine,Hum.Rec.Anlog 100 Unit/Ml 10 Ml Vial SUBCUT 60 unit BEDTIME HI Administration Insulin Human Lispro 0 unit 12/12/20 21:00 12/14/20 07:07 Insulin Lispro 100 Unit/Ml 3 Ml Vial SUBCUT Not Given QIDACHS [facility] Protocol Isosorbide Mononitrate 30 mg 12/12/20 09:00 12/13/20 07:28 Isosorbide Mononitrate 30 Mg Tab.Er.24h PO 30 mg DAILY HI Administration Protocol Metoprolol Succinate 50 mg 12/12/20 09:00 12/13/20 07:29 Metoprolol Succinate Er 50 Mg Tab.Er.24h PO 50 mg DAILY [facility] Administration Protocol Omeprazole 20 mg 12/12/20 08:00 12/14/20 05:50 Omeprazole 20 Mg Capsule.Dr PO 20 mg DAILY@0630 [facility] Administration Pharmacy Consult 1 each 12/11/20 19:42 Consult Rx Perform Med Rec MISCELLANE ONCE PRN Consult order Pregabalin 100 mg 12/12/20 09:00 12/13/20 20:56 Pregabalin 100 Mg Capsule PO 100 mg BID HI Administration Sodium Chloride 3 ml 12/12/20 00:00 12/14/20 02:34 0.9 % Sodium Chloride Flush 3 Ml Syringe IVFLUSH 3 ml QSHIFT [facility] Administration Tizanidine HCl 4 mg 12/12/20 08:00 12/13/20 20:56 Tizanidine Hcl 4 Mg Tablet PO 4 mg BEDTIME HI Administration Tramadol HCl 100 mg 12/12/20 07:21 12/13/20 18:16 Tramadol Hcl 50 Mg Tablet PO 100 mg Q8H PRN Administration Pain Vitamin D 50 mcg 12/12/20 09:00 12/13/20 07:29 Cholecalciferol (Vitamin D3) 25 Mcg Tablet PO 50 mcg DAILY [facility] Administration Labs CBC & Chem 7: 12/17/20 07:05 12/17/20 07:05 Assessment and Plan (1) Acute respiratory failure with hypoxia and hypercapnia: Status: Acute (2) DANIEL (obstructive sleep apnea): Status: Acute Assessment and Plan: 60-year-old female who presents to the hospital with lower leg swelling 1 dm uncontrolled: Yesterday fingersticks were running in 405 in range, required briefly IV insulin drip and subsequently improving For diabetes flowre patient the Lantus adjusted to 60 . asif improving Continue to monitor fingersticks with coverage. Closely 2 .Acute Hypoxemic/hypercarbic respiratory failure: lower extremity swelling/CHF exacerbation - most likely secondary to CHF exacerbation - sob seems improving bnp trerd up will repear bnp had small runof tachycardia, asymptomatic,lesslikely ventricular nature Patient was discussed with Cardiology and Nephrology: Will continue IV Lasix Monitor I/o closely cardiology foloowing ?also lower lung atelacatsis -added nebs and chest physiotherapy 3. hypertension -stable, continue amlodipine 4. GERD - continue omeprazole 5. hyperlipidemia - continue statin 6 . asif vs ckd: cr improving added nephro eval-for further management of CHF in the setting of CKD.
[2020-12-14] MEDS: Furosemide 40 MG/4 ML VIAL IVPUSH (07:41)
[2020-12-14] MEDS: FLUoxetine HCl 20 MG CAPSULE 40 MG PO (07:42)
[2020-12-14] MEDS: Cholecalciferol (Vitamin D3) 25 MCG TABLET 50 MCG PO (07:42)
[2020-12-14] MEDS: traMADoL HCL 50 MG TABLET 100 MG PO (07:42)
[2020-12-14] MEDS: Isosorbide Mononitrate 30 MG TAB.ER.24H PO (07:42)
[2020-12-14] MEDS: Pregabalin 100 MG CAPSULE PO (07:43)
[2020-12-14] MEDS: Aspirin Enteric Coated 81 MG TABLET.DR PO (07:43)
[2020-12-14] MEDS: Metoprolol Succinate ER 50 MG TAB.ER.24H PO (07:43)
--- NOTE | 2020-12-14 10:33 | P.PNNP_ITS ---
Subjective Subjective Date of Service: 12/14/20 Interval history: Seen AM; Events noted. All recent data reviewed Physical Exam Vital Signs: Vital Signs: Last Vital Signs Temp 97.1 F 12/14/20 07:18 Pulse 88 12/14/20 08:05 Resp 18 12/14/20 07:18 BP 149/63 H 12/14/20 07:43 Pulse Ox 92 12/14/20 07:18 Body Mass Index 52.8 Const: General: no acute distress Orientation/consciousness: patient oriented x3 Eyes: EOM: EOMs intact bilaterally Neck: Neck: Yes supple Resp: Auscultation: diminished lung sounds Cardio: Jugular venous distension: no JVD GI: Palpation (GI): Soft to palpation Neuro: General: patient oriented x3 and moves all extremities Objective Data Labs CBC & Chem 7: 12/11/20 10:53 12/14/20 05:37 Labs: Laboratory Results - last 24 hr 12/13/20 12/13/20 12/13/20 11:17 16:12 19:58 Sodium Potassium Chloride Carbon Dioxide Anion Gap BUN Creatinine Estim Creat Clear Calc Estimated GFR POC Glucose 228 H 193 H 236 H Random Glucose Calcium B-Natriuretic Peptide 12/14/20 12/14/20 12/14/20 00:30 05:37 05:37 Sodium 144 Potassium 4.0 Chloride 107 Carbon Dioxide 27 Anion Gap 14 BUN 56 H Creatinine 1.26 Estim Creat Clear Calc 62.6 Estimated GFR 43 POC Glucose 151 H Random Glucose 94 D Calcium 8.4 B-Natriuretic Peptide 220 H 12/14/20 07:00 Sodium Potassium Chloride Carbon Dioxide Anion Gap BUN Creatinine Estim Creat Clear Calc Estimated GFR POC Glucose 74 Random Glucose Calcium B-Natriuretic Peptide Assessment & Plan Assessment and plan (1) CKD (chronic kidney disease) stage 3, GFR 30-59 ml/min: Status: Acute Assessment and Plan: Serum creatinine back to baseline; Had CRS underwent CTA. Did not develop contrast nephropathy Needs to be on IV lasix. Needs to be compliant with diet and fluid Shall continue supportive care for now. Labs AM. Shall F/U Time Spent With Patient Time: Total time spent is greater than 50% in coordination of care (as documente d) at patient's floor/unit and/or counseling patient: Procedures Date of Service Date of Service: 12/14/20
[2020-12-14 11:10] LABS: Glucose, Whole Blood 106 mg/dL (60-115)
--- NOTE | 2020-12-14 11:38 | P.PNCA_ITS ---
Subjective Subjective Date of Service: 12/14/20 Interval history: Still has shortness of breath. Othewise, about the same. Review of Systems Review of Systems Yes all other systems are reviewed and are negative Cardiovascular: Reports as per HPI, Reports no additional cardiovascular complaints, Denies acrocyanosis, Denies cool extremities, Denies painful f ingertips, Denies chest pain, Denies chest pain at rest, Denies diaphoresis, Denies syncope, Denies irregular heart rhythm, Denies claudication, Reports leg edema, Denies lightheadedness, Denies palpitations and Reports dyspnea Respiratory: Reports dyspnea Denies syncope Endocrine: Denies palpitations Physical Exam Vital Signs: Last Vital Signs Temp 97.1 F 12/14/20 11:23 Pulse 79 12/14/20 11:23 Resp 14 12/14/20 11:23 BP 109/67 12/14/20 11:23 Pulse Ox 97 12/14/20 11:23 Body Mass Index 52.8 Const General: cooperative, comfortable and no acute distress Orientation/consciousness: patient oriented x3 [id number] Other: Unremarkable Neck Neck: Yes normal visual inspection Chest Chest palpation & inspection: normal inspection of the chest Resp Auscultation: clear to auscultation bilaterally, no crackles and no wheezes Cardio Jugular venous distension: no JVD Palpation: normal PMI Heart sounds: S1 normal heart sound present, S2 normal heart sound present, no gallops, no murmurs and no rubs GI Palpation (GI): Soft to palpation Back/Spine/Pelvis Other: unremarkable Skin General skin exam: no rashes or lesions noted Neuro General: patient oriented x3 Extrem General: Yes edema (2+) Psych Mental Status: mental status grossly normal Results Labs and Meds Result diagrams: 12/11/20 10:53 12/14/20 05:37 Lab results: Laboratory Results - last 24 hr 12/13/20 12/13/20 12/14/20 16:12 19:58 00:30 Sodium Potassium Chloride Carbon Dioxide Anion Gap BUN Creatinine Estim Creat Clear Calc Estimated GFR POC Glucose 193 H 236 H 151 H Random Glucose Calcium B-Natriuretic Peptide 12/14/20 12/14/20 12/14/20 05:37 05:37 07:00 Sodium 144 Potassium 4.0 Chloride 107 Carbon Dioxide 27 Anion Gap 14 BUN 56 H Creatinine 1.26 Estim Creat Clear Calc 62.6 Estimated GFR 43 POC Glucose 74 Random Glucose 94 D Calcium 8.4 B-Natriuretic Peptide 220 H 12/14/20 11:01 Sodium Potassium Chloride Carbon Dioxide Anion Gap BUN Creatinine Estim Creat Clear Calc Estimated GFR POC Glucose 106 Random Glucose Calcium B-Natriuretic Peptide Progress Note: A&P Assessment and plan (1) Acute on chronic combined systolic and diastolic CHF (congestive heart failure): Status: Acute (2) NICM (nonischemic cardiomyopathy): Status: Acute (3) Acute hypercapnic respiratory failure: Status: Acute Assessment and Plan: Most recent echocardiogram from this month shows LVEF of 40-45% and moderate mitral annular calcification. Echocardiogram from last year had LVEF of 50-55%. Cardiac catheterization from 2018 shows essentially normal coronary arteries. RCA was not well visualized. Labs reviewed. Creatinine is 1.26. BUN is 56. High sensitivity troponin 6.2. Cardiac BNP 220. CTA chest shows no evidence of pulmonary embolism. Enlarged heart and small bilateral pleural effusions and bilateral lower lobe atelectasis. ABG is also abnormal with pCO2 of 56; bicarbonate 34, pH in the VBG was 7.29. Empiric IV diuretics. Otherwise, she previously had ischemia workup no further testing at this time. Telemetry with underlying sinus rhythm; there is a brief run of broad complex tachycardia for 22 beats which could be rather supraventricular with aberrancy. Less likely to be ventricular in nature. Will follow up with you. Fall Risk Details Current Medications: Current Medications Generic Name Dose Route Start Last Admin Trade Name Freq PRN Reason Stop Dose Admin Albuterol/Ipratropium 3 ml 12/11/20 20:00 12/14/20 11:01 Albuterol/Iprat 2.5/0.5mg 3 Ml Ampul.Neb INHALE 3 ml RQ4H HI Administration Aspirin 81 mg 12/12/20 09:00 12/14/20 07:43 Aspirin Enteric Coated 81 Mg Tablet. PO 81 mg DAILY HI Administration Atorvastatin Calcium 10 mg 12/12/20 21:00 12/13/20 20:56 Atorvastatin Calcium 10 Mg Tablet PO 10 mg BEDTIME HI Administration Enoxaparin Sodium 40 mg 12/11/20 20:00 12/13/20 20:59 Enoxaparin Sodium 40 Mg/0.4 Ml Syringe SUBCUT 40 mg Q24H HI Administration Fluoxetine HCl 40 mg 12/12/20 09:00 12/14/20 07:42 Fluoxetine Hcl 20 Mg Capsule PO 40 mg DAILY [facility] Administration Fluticasone Propionate 2 puff 12/12/20 08:00 12/14/20 11:04 Fluticasone Propionate 100 Mcg Blst.W.Dev INHALE Not Given RBID [facility] Furosemide 40 mg 12/15/20 09:00 Furosemide 40 Mg/4 Ml Vial IVPUSH DAILY [facility] Protocol Insulin Glargine 60 unit 12/13/20 21:00 12/13/20 20:57 Insulin Glargine,Hum.Rec.Anlog 100 Unit/Ml 10 Ml Vial SUBCUT 60 unit BEDTIME [facility] Administration Insulin Human Lispro 0 unit 12/12/20 21:00 12/14/20 11:35 Insulin Lispro 100 Unit/Ml 3 Ml Vial SUBCUT Not Given QIDACHS [facility] Protocol Isosorbide Mononitrate 30 mg 12/12/20 09:00 12/14/20 07:42 Isosorbide Mononitrate 30 Mg Tab.Er.24h PO 30 mg DAILY [facility] Administration Protocol Metoprolol Succinate 50 mg 12/12/20 09:00 12/14/20 07:43 Metoprolol Succinate Er 50 Mg Tab.Er.24h PO 50 mg DAILY [facility] Administration Protocol Omeprazole 20 mg 12/12/20 08:00 12/14/20 05:50 Omeprazole 20 Mg Capsule.Dr PO 20 mg DAILY@0630 [facility] Administration Pharmacy Consult 1 each 12/11/20 19:42 Consult Rx Perform Med Rec MISCELLANE ONCE PRN Consult order Pregabalin 100 mg 12/12/20 09:00 12/14/20 07:43 Pregabalin 100 Mg Capsule PO 100 mg BID [facility] Administration Sodium Chloride 3 ml 12/12/20 00:00 12/14/20 07:41 0.9 % Sodium Chloride Flush 3 Ml Syringe IVFLUSH 3 ml QSHIFT [facility] Administration Tizanidine HCl 4 mg 12/12/20 08:00 12/13/20 20:56 Tizanidine Hcl 4 Mg Tablet PO 4 mg BEDTIME [facility] Administration Tramadol HCl 100 mg 12/12/20 07:21 12/14/20 07:42 Tramadol Hcl 50 Mg Tablet PO 100 mg Q8H PRN Administration Pain Vitamin D 50 mcg 12/12/20 09:00 12/14/20 07:42 Cholecalciferol (Vitamin D3) 25 Mcg Tablet PO 50 mcg DAILY HI Administration Time Spent With Patient Time: Total time spent is greater than 50% in coordination of care (as documented) at patient's floor/unit and/or counseling patient: Time with patient: less than 15 minutes Procedures Date of Service Date of Service: 12/14/20
--- NOTE | 2020-12-14 13:28 | PM.CNPUL ---
History of Present Illness History of Present Illness Consult date: 12/14/20 Chief complaint: CHF Excerbation Narrative: 60-year-old female with past medical history of see history HTN, DM, CHF HLD, DANIEL, depression, asthma, who presents to the hospital with complaints sob and leg swelling.In addition CTA was done which is negative for pulmonary embolism, also shows pulmonary effusions small as well as bibasilar atelectasis, elevated BNP higher than baseline. The patient was admitted with CHF. The patient was given Lasix and trial of bipap-seems improving after that, initial VBG had shown hypercarbic and low pH 7.29 but afterwards 7.39 and pCO2 went down from 70 to 56. The patient is on nasal cannula on the floor and doing well. She states that in the past she had a PSG and started on PAP therapy. But she returned it due to difficulty tolerating it. ECHO with normal RV pressure estimates, decreased LV function. Review of Systems Constitutional: Constitutional: Reports daytime sleepiness, Reports fatigue, Denies night sweats, Reports snoring and Reports weight gain ENT: Denies change in voice, Denies lip swelling, Denies mouth pain, Reports nasal congestion, Reports nasal discharge and Denies tongue swelling Cardiovascular: Cardiovascular: Denies chest pain, Reports leg edema and Reports dyspnea Respiratory: Respiratory: Reports cough, Reports dyspnea and Reports snoring Gastrointestinal: Gastrointestinal: Denies abdominal pain Musculoskeletal: Musculoskeletal: Denies no additional musculoskeletal complaints Neurologic: Denies Neuro-related abnormal movements Psychiatric: Psychiatric: Denies no additional psychiatric complaints Endocrine: Endocrine: Reports fatigue Hematologic/Lymphatic: Hematologic/Lymphatic: Denies easy bleeding and Denies lymphadenopathy Allergic/Immunologic: Allergic/Immunologic: Denies lip swelling and Denies tongue swelling PMFSH Past Medical History Medical History (Updated 12/14/20 @ 13:37 by Branden Francis MD) Acute on chronic HFrEF (heart failure with reduced ejection fraction) FELICIA (acute kidney injury) Asthma delivery delivered CHF exacerbation Chronic pain Depression Diabetes Diabetic neuropathy, painful Diarrhea High cholesterol Hypertension Left ankle pain Leukocytosis Morbid obesity NICM (nonischemic cardiomyopathy) Obesity hypoventilation syndrome DANIEL (obstructive sleep apnea) Swelling of lower extremity Surgical History Surgical History Hx of cholecystectomy Social History Social History Household Members: None Housing: Assisted Living Facility Housing Other:: [facility] Do you presently have visiting nurse or other home services: Yes Alcohol intake: current Alcohol intake frequency: holidays/special occasions only Years Smoked: 38 Second Hand Smoke Exposure: No Use of substances other than those prescribed or required for medical reasons: No Substance Use Type: Marijuana Currently Displaying Signs/Symptoms of Drug Intoxication Withdrawal: No Have you been hit, kicked, punched, or otherwise hurt by someone within the past year? If so, by whom?: No Do you feel safe in your current relationship?: No Current Relationship Is there a partner from a previous relationship who is making you feel unsafe now?: No Are you made to feel afraid or neglected: No Advance Directives: No Advance Directives Information Provided: Yes Do you have thoughts of harming others: None Do you have a plan to hurt others: No Plan Recently lost weight without trying: No How much weight loss: Not applicable Eating poorly because of decreased appetite: No Nutrition screen score: 0 Nutrition Risks: No Nutritional Risk Patient : No : No Poor oral hygiene: No service: No Current occupational status: disabled Meds Allergies Allergy/AdvReac Type Severity Reaction Status Date / Time No Known Allergies Allergy Unverified 12/11/20 10:41 acetaminophen [Tylenol] AdvReac Unknown vommiting, Verified 11/22/20 21:28 itching ibuprofen AdvReac Unknown vommiting, Verified 11/22/20 21:28 itching morphine AdvReac Unknown vomiting Verified 11/22/20 21:28 Motrin Allergy Unknown itching Uncoded 09/21/19 00:00 Active Medications: Current Medications Generic Name Dose Route Start Last Admin Trade Name Freq PRN Reason Stop Dose Admin Albuterol/Ipratropium 3 ml 12/11/20 20:00 12/14/20 11:01 Albuterol/Iprat 2.5/0.5mg 3 Ml Ampul.Neb INHALE 3 ml RQ4H HI Administration Aspirin 81 mg 12/12/20 09:00 12/14/20 07:43 Aspirin Enteric Coated 81 Mg Tablet. PO 81 mg DAILY HI Administration Atorvastatin Calcium 10 mg 12/12/20 21:00 12/13/20 20:56 Atorvastatin Calcium 10 Mg Tablet PO 10 mg BEDTIME HI Administration Enoxaparin Sodium 40 mg 12/11/20 20:00 12/13/20 20:59 Enoxaparin Sodium 40 Mg/0.4 Ml Syringe SUBCUT 40 mg Q24H HI Administration Fluoxetine HCl 40 mg 12/12/20 09:00 12/14/20 07:42 Fluoxetine Hcl 20 Mg Capsule PO 40 mg DAILY HI Administration Fluticasone Propionate 2 puff 12/12/20 08:00 12/14/20 11:04 Fluticasone Propionate 100 Mcg Blst.W.Dev INHALE Not Given RBID [facility] Furosemide 40 mg 12/15/20 09:00 Furosemide 40 Mg/4 Ml Vial IVPUSH DAILY [facility] Protocol Insulin Glargine 60 unit 12/13/20 21:00 12/13/20 20:57 Insulin Glargine,Hum.Rec.Anlog 100 Unit/Ml 10 Ml Vial SUBCUT 60 unit BEDTIME [facility] Administration Insulin Human Lispro 0 unit 12/12/20 21:00 12/14/20 11:35 Insulin Lispro 100 Unit/Ml 3 Ml Vial SUBCUT Not Given QIDACHS [facility] Protocol Isosorbide Mononitrate 30 mg 12/12/20 09:00 12/14/20 07:42 Isosorbide Mononitrate 30 Mg Tab.Er.24h PO 30 mg DAILY [facility] Administration Protocol Metoprolol Succinate 50 mg 12/12/20 09:00 12/14/20 07:43 Metoprolol Succinate Er 50 Mg Tab.Er.24h PO 50 mg DAILY [facility] Administration Protocol Omeprazole 20 mg 12/12/20 08:00 12/14/20 05:50 Omeprazole 20 Mg Capsule.Dr PO 20 mg DAILY@0630 [facility] Administration Pharmacy Consult 1 each 12/11/20 19:42 Consult Rx Perform Med Rec MISCELLANE ONCE PRN Consult order Pregabalin 100 mg 12/12/20 09:00 12/14/20 07:43 Pregabalin 100 Mg Capsule PO 100 mg BID HI Administration Sodium Chloride 3 ml 12/12/20 00:00 12/14/20 07:41 0.9 % Sodium Chloride Flush 3 Ml Syringe IVFLUSH 3 ml QSHIFT [facility] Administration Tizanidine HCl 4 mg 12/12/20 08:00 12/13/20 20:56 Tizanidine Hcl 4 Mg Tablet PO 4 mg BEDTIME [facility] Administration Tramadol HCl 100 mg 12/12/20 07:21 12/14/20 07:42 Tramadol Hcl 50 Mg Tablet PO 100 mg Q8H PRN Administration Pain Vitamin D 50 mcg 12/12/20 09:00 12/14/20 07:42 Cholecalciferol (Vitamin D3) 25 Mcg Tablet PO 50 mcg DAILY HI Administration Home Medications Medication Instructions Recorded Confirmed Last Taken Type Flovent HFA 2 puff INHALATION BID 11/23/20 12/11/20 12/11/20 History Lantus U-100 Insulin 80 unit SUBCUT BEDTIME 11/23/20 12/11/20 12/10/20 History albuterol sulfate [ProAir HFA] 2 puff INHALATION Q4H PRN 11/23/20 12/11/20 12/11/20 History amlodipine 10 mg PO DAILY 11/23/20 12/11/20 12/11/20 History aspirin 81 mg PO DAILY 11/23/20 12/11/20 12/11/20 History fluoxetine 40 mg PO DAILY 11/23/20 12/11/20 12/11/20 History furosemide 20 mg PO DAILY 11/23/20 12/11/20 12/11/20 History insulin lispro [Humalog U-100 See Rx Instructions .ROUTE .COMPLEX 11/23/20 12/11/20 11/22/20 History Insulin] metoprolol succinate 50 mg PO DAILY 11/23/20 12/11/20 12/11/20 History omeprazole 20 mg PO BEDTIME 11/23/20 12/11/20 12/10/20 History simvastatin 20 mg PO BEDTIME 11/23/20 12/11/20 12/10/20 History tramadol 100 mg PO Q8H PRN 11/23/20 12/11/20 12/10/20 History cholecalciferol (vitamin D3) 50 mcg PO DAILY 12/11/20 12/11/20 12/11/20 History isosorbide mononitrate 30 mg PO DAILY 12/11/20 12/11/20 12/11/20 History pregabalin [Lyrica] 100 mg PO BID 12/11/20 12/11/20 12/10/20 History tizanidine 4 mg PO BEDTIME 12/11/20 12/11/20 12/10/20 History Physical Exam Vital Signs: Vital Signs: Last Vital Signs Temp 97.1 F 12/14/20 11:23 Pulse 79 12/14/20 11:23 Resp 14 12/14/20 11:23 BP 109/67 12/14/20 11:23 Pulse Ox 97 12/14/20 11:23 Body Mass Index 52.8 Const: General: alert Eyes: Pupils: Equal, round and reactive pupils present Neck: Neck: Yes normal visual inspection, Yes full ROM and Yes no lymphadenopathy Chest: Chest palpation & inspection: normal inspection of the chest Resp: Auscultation: diminished lung sounds Cardio: Rate: regular rate Rhythm: regular rhythm Heart sounds: S1 normal heart sound present and S2 normal heart sound present GI: Palpation (GI): Soft to palpation and nontender Auscultation: normal bowel sounds Skin: General skin exam: rashes and/or lesions noted Neuro: Cranial nerves: Yes Equal, round and reactive pupils present Results Laboratory Findings CBC and BMP: 12/11/20 10:53 12/14/20 05:37 ABG, PT/INR, D-dimer: PT/INR, D-dimer PT 11.7 SEC (10.8-13.0) 12/11/20 10:53 INR 1.0 (0.9-1.1) 12/11/20 10:53 D-Dimer 670 NG/ML 12/11/20 10:53 Abnormal lab findings: Abnormal Labs 12/11/20 12/11/20 12/11/20 10:53 10:53 10:53 RBC 3.67 L Hgb 9.7 L Hct 33.9 L MCH 26.4 L MCHC 28.6 L MPV 9.3 L Immature Gran % (Auto) 0.6 H Neut % (Auto) 78.8 H Lymph % (Auto) 12.1 L Abs Immat Gran (auto) 0.06 H ABG pCO2 at Pt Temp ABG pCO2 (Temp Corrct ABG pO2 at Pt Temp ABG pO2 (Temp Correct ABG HCO3 VBG pH VBG HCO3 BUN 35 H D Creatinine POC Glucose Random Glucose 207 H Calcium B-Natriuretic Peptide 232 H 12/11/20 12/11/20 12/11/20 11:09 18:22 21:36 RBC Hgb Hct MCH MCHC MPV Immature Gran % (Auto) Neut % (Auto) Lymph % (Auto) Abs Immat Gran (auto) ABG pCO2 at Pt Temp 56 H ABG pCO2 (Temp Corrct 55 H ABG pO2 at Pt Temp 65 L ABG pO2 (Temp Correct 63 L ABG HCO3 34 H VBG pH 7.29 L VBG HCO3 34 H BUN Creatinine POC Glucose 186 H Random Glucose Calcium B-Natriuretic Peptide 12/12/20 12/12/20 12/12/20 05:45 05:45 07:16 RBC Hgb Hct MCH MCHC MPV Immature Gran % (Auto) Neut % (Auto) Lymph % (Auto) Abs Immat Gran (auto) ABG pCO2 at Pt Temp ABG pCO2 (Temp Corrct ABG pO2 at Pt Temp ABG pO2 (Temp Correct ABG HCO3 VBG pH VBG HCO3 BUN 42 H Creatinine 1.59 H POC Glucose 469 H* Random Glucose 567 H* Calcium 8.3 L B-Natriuretic Peptide 286 H 12/12/20 12/12/20 12/12/20 08:29 10:10 11:20 RBC Hgb Hct MCH MCHC MPV Immature Gran % (Auto) Neut % (Auto) Lymph % (Auto) Abs Immat Gran (auto) ABG pCO2 at Pt Temp ABG pCO2 (Temp Corrct ABG pO2 at Pt Temp ABG pO2 (Temp Correct ABG HCO3 VBG pH VBG HCO3 BUN Creatinine POC Glucose 441 H* 455 H* 564 H* Random Glucose Calcium B-Natriuretic Peptide 12/12/20 12/12/20 12/12/20 11:53 14:22 20:14 RBC Hgb Hct MCH MCHC MPV Immature Gran % (Auto) Neut % (Auto) Lymph % (Auto) Abs Immat Gran (auto) ABG pCO2 at Pt Temp ABG pCO2 (Temp Corrct ABG pO2 at Pt Temp ABG pO2 (Temp Correct ABG HCO3 VBG pH VBG HCO3 BUN 48 H Creatinine 1.66 H POC Glucose 323 H 187 H Random Glucose 444 H* Calcium 8.3 L B-Natriuretic Peptide 12/13/20 12/13/20 12/13/20 02:14 07:12 11:17 RBC Hgb Hct MCH MCHC MPV Immature Gran % (Auto) Neut % (Auto) Lymph % (Auto) Abs Immat Gran (auto) ABG pCO2 at Pt Temp ABG pCO2 (Temp Corrct ABG pO2 at Pt Temp ABG pO2 (Temp Correct ABG HCO3 VBG pH VBG HCO3 BUN Creatinine POC Glucose 221 H 219 H 228 H Random Glucose Calcium B-Natriuretic Peptide 12/13/20 12/13/20 12/14/20 16:12 19:58 00:30 RBC Hgb Hct MCH MCHC MPV Immature Gran % (Auto) Neut % (Auto) Lymph % (Auto) Abs Immat Gran (auto) ABG pCO2 at Pt Temp ABG pCO2 (Temp Corrct ABG pO2 at Pt Temp ABG pO2 (Temp Correct ABG HCO3 VBG pH VBG HCO3 BUN Creatinine POC Glucose 193 H 236 H 151 H Random Glucose Calcium B-Natriuretic Peptide 12/14/20 12/14/20 05:37 05:37 RBC Hgb Hct MCH MCHC MPV Immature Gran % (Auto) Neut % (Auto) Lymph % (Auto) Abs Immat Gran (auto) ABG pCO2 at Pt Temp ABG pCO2 (Temp Corrct ABG pO2 at Pt Temp ABG pO2 (Temp Correct ABG HCO3 VBG pH VBG HCO3 BUN 56 H Creatinine POC Glucose Random Glucose Calcium B-Natriuretic Peptide 220 H Assessment and Plan (1) DANIEL (obstructive sleep apnea): Status: Acute (2) Obesity hypoventilation syndrome: Status: Acute (3) Acute on chronic combined systolic and diastolic CHF (congestive heart failure): Status: Acute Diuresis as tolerated nasal cannula O2 to keep pox 90-96%. Perform 6 MWT closer to d/c if she is RA at rest Will need outpt inlab sleep study. We will set that up once she follows up as an outpt ( will set up a follow up with the pulmonary clinic for 1-2 weeks) Continue respiratory therapy for her asthma. Procedures Date of Service Date of Service: 12/14/20
--- NOTE | 2020-12-14 13:40 | MHC.CM.PN ---
Patient has returned to [facility] from ICU. Per ROUNDS Discussion, Patient is not yet medically cleared for dc (IV Lasix). Patient has been accepted at her first choice SNF- [facility]. CM will follow for possible need to adjust the dc plan.
[2020-12-14 16:36] LABS: Glucose, Whole Blood 167 mg/dL (60-115)
[2020-12-14] MEDS: Insulin Lispro 100 UNIT/ML 3 ML VIAL SUBCUT ×2 (16:47→20:26)
--- NOTE | 2020-12-14 18:36 | PC.NURSE ---
Patient refusing to get OOB today due to pain in her ankles. Using bedpan for bowel movements, purewick in place. Patient desat into the high 80s when sleeping, 2L O2 applied. No further issues.
[2020-12-14] MEDS: Fluticasone Propionate 100 MCG BLST.W.DEV 2 PUFF INHALE (20:01)
[2020-12-14 20:04] LABS: Glucose, Whole Blood 191 mg/dL (60-115)
[2020-12-14] MEDS: Enoxaparin Sodium 40 MG/0.4 ML SYRINGE SUBCUT (20:24)
[2020-12-14] MEDS: Insulin Glargine,Hum.rec.anlog 100 UNIT/ML 10 ML VIAL 60 UNIT SUBCUT (20:26)
[2020-12-15] VITALS (10 sets, daily range): BP systolic 119–145; BP diastolic 67–80; PULSE 79–87; RESP 17–18; TEMP 35.8–36.8; O2SAT 93–96; BMI 49.1
[2020-12-15] MEDS: traMADoL HCL 50 MG TABLET 100 MG PO ×2 (00:49→21:52)
[2020-12-15] MEDS: Atorvastatin Calcium 10 MG TABLET PO ×3 (00:49→21:56)
[2020-12-15] MEDS: TiZANidine HCL 4 MG TABLET PO ×2 (00:49→21:53)
[2020-12-15] MEDS: Pregabalin 100 MG CAPSULE PO ×3 (00:50→21:53)
[2020-12-15] MEDS: Omeprazole 20 MG CAPSULE.DR PO (06:07)
[2020-12-15 07:02] LABS: Glucose, Whole Blood 132 mg/dL (60-115)
[2020-12-15 07:06] LABS: Anion Gap 11 (12-20); Blood Urea Nitrogen 45 mg/dL (9-16); Calcium 8.4 mg/dL (8.4-10.2); Carbon Dioxide 31 mmol/L (22-29); Chloride 105 mmol/L (96-108); Creatinine Clr Calc Pharmacy 59.8; Estimated Glomerular Filt Rate 43; Glucose Random 144 mg/dL (60-115); Potassium 4.3 mmol/L (3.3-5.1); Sodium 143 mmol/L (135-145)
[2020-12-15 07:24] LABS: Alanine Aminotransferase 14 U/L (0-31); Albumin Level 3.7 g/dL (3.5-5.0); Alkaline Phosphatase 81 U/L (39-117); Aspartate Amino Transferase 12 U/L (5-31); Bilirubin Direct 0.2 mg/dL (0.0-0.5); Bilirubin Total 0.4 mg/dL (0.0-1.0); Total Protein 6.3 g/dL (6.5-8.0)
[2020-12-15] MEDS: Metoprolol Succinate ER 50 MG TAB.ER.24H PO (09:43)
[2020-12-15] MEDS: FLUoxetine HCl 20 MG CAPSULE 40 MG PO (09:44)
[2020-12-15] MEDS: Isosorbide Mononitrate 30 MG TAB.ER.24H PO (09:44)
[2020-12-15] MEDS: Furosemide 40 MG TABLET PO (09:44)
[2020-12-15] MEDS: Cholecalciferol (Vitamin D3) 25 MCG TABLET 50 MCG PO (09:45)
[2020-12-15] MEDS: Aspirin Enteric Coated 81 MG TABLET.DR PO (09:45)
[2020-12-15] MEDS: 0.9 % Sodium Chloride Flush 3 ML SYRINGE IVFLUSH ×3 (09:45→22:01)
[2020-12-15 11:01] LABS: Glucose, Whole Blood 146 mg/dL (60-115)
[2020-12-15] MEDS: Albuterol/Iprat 2.5/0.5MG 3 ML AMPUL.NEB INHALE ×2 (11:31→15:37)
--- NOTE | 2020-12-15 13:56 | PM.PNNEP ---
Subjective Subjective Date of Service: 12/15/20 Interval history: Seen AM; Events noted. All recent data reviewed Cr is stable Physical Exam Vital Signs: Vital Signs: Last Vital Signs Temp 97.2 F 12/15/20 11:36 Pulse 82 12/15/20 11:36 Resp 18 12/15/20 11:36 BP 127/80 12/15/20 11:36 Pulse Ox 95 12/15/20 11:36 Body Mass Index 49.1 Const: General: cooperative, no acute distress and awake Orientation/consciousness: patient oriented x3 Eyes: EOM: EOMs intact bilaterally Neck: Neck: Yes supple Resp: Auscultation: diminished lung sounds Cardio: Jugular venous distension: no JVD Rate: regular rate GI: Palpation (GI): Soft to palpation Neuro: General: patient oriented x3 and moves all extremities Objective Data Labs CBC & Chem 7: 12/11/20 10:53 12/15/20 05:48 Labs: Laboratory Results - last 24 hr 12/14/20 12/14/20 12/15/20 16:32 19:59 05:48 Sodium 143 Potassium 4.3 Chloride 105 Carbon Dioxide 31 H Anion Gap 11 L BUN 45 H Creatinine 1.26 Estim Creat Clear Calc 59.8 Estimated GFR 43 POC Glucose 167 H 191 H Random Glucose 144 H D Calcium 8.4 Total Bilirubin 0.4 Direct Bilirubin 0.2 AST 12 ALT 14 Alkaline Phosphatase 81 Total Protein 6.3 L Albumin 3.7 12/15/20 12/15/20 06:59 10:58 Sodium Potassium Chloride Carbon Dioxide Anion Gap BUN Creatinine Estim Creat Clear Calc Estimated GFR POC Glucose 132 H 146 H Random Glucose Calcium Total Bilirubin Direct Bilirubin AST ALT Alkaline Phosphatase Total Protein Albumin Assessment & Plan Assessment and plan (1) DANIEL (obstructive sleep apnea): Status: Acute (2) Obesity hypoventilation syndrome: Status: Acute (3) Acute on chronic combined systolic and diastolic CHF (congestive heart failure): Status: Acute Assessment and Plan: CKD (chronic kidney disease) stage 3, GFR 30-59 ml/min: Assessment and Plan: Serum creatinine back to baseline Now 1.26 Had CRS underwent CTA. Did not develop contrast nephropathy Continue the diuretics Needs to be compliant with diet and fluid Shall continue supportive care for now. Labs AM. Shall F/U Time Spent With Patient Time: Total time spent is greater than 50% in coordination of care (as documented) at patient's floor/unit and/or counseling patient: Procedures Date of Service Date of Service: 12/15/20
--- NOTE | 2020-12-15 14:40 | HO.PM.IMPN ---
Subjective Subjective Date of Service: 12/15/20 Interval History: diarrhea Cardiovascular Cardiovascular: Reports no additional cardiovascular complaints Gastrointestinal Gastrointestinal: Reports no additional gastrointestinal complaints Physical Exam Vital Signs: Vital Signs: Last Vital Signs Temp 97.2 F 12/15/20 11:36 Pulse 82 12/15/20 11:36 Resp 18 12/15/20 11:36 BP 127/80 12/15/20 11:36 Pulse Ox 95 12/15/20 11:36 Body Mass Index 49.1 Constitutional: Not in acute distress. Cvs: rrr, [id number] , no murmur res:fair air entry, slightly diminshed at bases. abd: no rebound or guarding ,nt, bs present. ext pulses present , no cyanosis neuro: axo3 , nonfocal. Objective Data Current Medications Generic Name Dose Route Start Last Admin Trade Name Freq PRN Reason Stop Dose Admin Albuterol/Ipratropium 3 ml 12/11/20 20:00 12/15/20 11:31 Albuterol/Iprat 2.5/0.5mg 3 Ml Ampul.Neb INHALE 3 ml RQ4H HI Administration Aspirin 81 mg 12/12/20 09:00 12/15/20 09:45 Aspirin Enteric Coated 81 Mg Tablet.Dr PO 81 mg DAILY HI Administration Atorvastatin Calcium 10 mg 12/12/20 21:00 12/15/20 00:49 Atorvastatin Calcium 10 Mg Tablet PO 10 mg BEDTIME HI Administration Enoxaparin Sodium 40 mg 12/11/20 20:00 12/14/20 20:24 Enoxaparin Sodium 40 Mg/0.4 Ml Syringe SUBCUT 40 mg Q24H HI Administration Fluoxetine HCl 40 mg 12/12/20 09:00 12/15/20 09:44 Fluoxetine Hcl 20 Mg Capsule PO 40 mg DAILY HI Administration Fluticasone Propionate 2 puff 12/12/20 08:00 12/15/20 07:46 Fluticasone Propionate 100 Mcg Blst.W.Dev INHALE Not Given RBID HI Furosemide 40 mg 12/15/20 09:00 12/15/20 09:44 Furosemide 40 Mg Tablet PO 40 mg DAILY HI Administration Protocol Insulin Glargine 60 unit 12/13/20 21:00 12/14/20 20:26 Insulin Glargine,Hum.Rec.Anlog 100 Unit/Ml 10 Ml Vial SUBCUT 60 unit BEDTIME [facility] Administration Insulin Human Lispro 0 unit 12/12/20 21:00 12/15/20 14:31 Insulin Lispro 100 Unit/Ml 3 Ml Vial SUBCUT Not Given QIDACHS [facility] Protocol Isosorbide Mononitrate 30 mg 12/12/20 09:00 12/15/20 09:44 Isosorbide Mononitrate 30 Mg Tab.Er.24h PO 30 mg DAILY [facility] Administration Protocol Metoprolol Succinate 50 mg 12/12/20 09:00 12/15/20 09:43 Metoprolol Succinate Er 50 Mg Tab.Er.24h PO 50 mg DAILY [facility] Administration Protocol Omeprazole 20 mg 12/12/20 08:00 12/15/20 06:07 Omeprazole 20 Mg Capsule.Dr PO 20 mg DAILY@0630 [facility] Administration Pharmacy Consult 1 each 12/11/20 19:42 Consult Rx Perform Med Rec MISCELLANE ONCE PRN Consult order Pregabalin 100 mg 12/12/20 09:00 12/15/20 09:48 Pregabalin 100 Mg Capsule PO 100 mg BID HI Administration Sodium Chloride 3 ml 12/12/20 00:00 12/15/20 09:45 0.9 % Sodium Chloride Flush 3 Ml Syringe IVFLUSH 3 ml QSHIFT [facility] Administration Tizanidine HCl 4 mg 12/12/20 08:00 12/15/20 00:49 Tizanidine Hcl 4 Mg Tablet PO 4 mg BEDTIME [facility] Administration Tramadol HCl 100 mg 12/12/20 07:21 12/15/20 00:49 Tramadol Hcl 50 Mg Tablet PO 100 mg Q8H PRN Administration Pain Vitamin D 50 mcg 12/12/20 09:00 12/15/20 09:45 Cholecalciferol (Vitamin D3) 25 Mcg Tablet PO 50 mcg DAILY [facility] Administration Labs CBC & Chem 7: 12/11/20 10:53 12/15/20 05:48 Assessment and Plan (1) CKD (chronic kidney disease) stage 3, GFR 30-59 ml/min: Status: Acute (2) CHF (congestive heart failure): Status: Deleted (3) Hyperglycemia: Status: Deleted Assessment and Plan: 60-year-old female who presents to the hospital with lower leg swelling DM insulin better controlled Acute hypoxic and hypercapnic respiratory failure Secondary to acute on chronic diastolic CHF and obesity hypoventilation Changed to oral Lasix Will need 6 minutes walk test prior to discharge Diarrhea Check Cdif Hypertension Amlodipine GERD PPI Hyperlipidemia Statin GERD continue omeprazole FELICIA resolved
[2020-12-15 15:01] LABS: CDIFF Ag Negative (Negative); CDIFF Internal ctrl Dots and bkg OK (V); CDiff Toxin Negative (Negative)
[2020-12-15 16:32] LABS: Glucose, Whole Blood 222 mg/dL (60-115)
[2020-12-15] MEDS: Insulin Lispro 100 UNIT/ML 3 ML VIAL SUBCUT ×2 (17:04→21:52)
[2020-12-15 21:43] LABS: Glucose, Whole Blood 236 mg/dL (60-115)
[2020-12-15] MEDS: Insulin Glargine,Hum.rec.anlog 100 UNIT/ML 10 ML VIAL 60 UNIT SUBCUT (21:52)
[2020-12-15] MEDS: Enoxaparin Sodium 40 MG/0.4 ML SYRINGE SUBCUT (21:57)
[2020-12-16] VITALS (11 sets, daily range): BP systolic 125–146; BP diastolic 59–88; PULSE 68–104; RESP 18; TEMP 36.6–37.1; O2SAT 92–94444; BMI 49.1
[2020-12-16] MEDS: Albuterol/Iprat 2.5/0.5MG 3 ML AMPUL.NEB INHALE ×4 (00:51→15:36)
[2020-12-16] MEDS: Omeprazole 20 MG CAPSULE.DR PO (05:52)
[2020-12-16 07:13] LABS: Glucose, Whole Blood 299 mg/dL (60-115)
[2020-12-16] MEDS: Fluticasone Propionate 100 MCG BLST.W.DEV 2 PUFF INHALE (07:46)
[2020-12-16] MEDS: FLUoxetine HCl 20 MG CAPSULE 40 MG PO (07:53)
[2020-12-16] MEDS: Metoprolol Succinate ER 50 MG TAB.ER.24H PO (07:54)
[2020-12-16] MEDS: Aspirin Enteric Coated 81 MG TABLET.DR PO (07:54)
[2020-12-16] MEDS: Cholecalciferol (Vitamin D3) 25 MCG TABLET 50 MCG PO (07:54)
[2020-12-16] MEDS: Pregabalin 100 MG CAPSULE PO ×2 (07:54→21:06)
[2020-12-16] MEDS: Isosorbide Mononitrate 30 MG TAB.ER.24H PO (07:55)
[2020-12-16] MEDS: Furosemide 40 MG TABLET PO (07:55)
[2020-12-16] MEDS: Insulin Lispro 100 UNIT/ML 3 ML VIAL SUBCUT ×4 (07:55→21:06)
[2020-12-16] MEDS: 0.9 % Sodium Chloride Flush 3 ML SYRINGE IVFLUSH ×3 (08:00→21:08)
--- NOTE | 2020-12-16 09:09 | P.PNIM_ITS ---
Subjective Subjective Date of Service: 12/16/20 Interval History: sob and diarrhea improved, feeling weak, difficult ambulating Cardiovascular Cardiovascular: Reports no additional cardiovascular complaints Gastrointestinal Gastrointestinal: Reports no additional gastrointestinal complaints Physical Exam Vital Signs: Vital Signs: Last Vital Signs Temp 98 F 12/16/20 07:41 Pulse 103 H 12/16/20 07:55 Resp 18 12/16/20 07:41 BP 143/66 H 12/16/20 07:55 Pulse Ox 94 12/16/20 07:41 Body Mass Index 49.1 Constitutional: Not in acute distress. Cvs: rrr, [id number] , no murmur res:fair air entry, slightly diminshed at bases. abd: no rebound or guarding ,nt, bs present. ext pulses present , no cyanosis neuro: axo3 , nonfocal. Objective Data Current Medications Generic Name Dose Route Start Last Admin Trade Name Freq PRN Reason Stop Dose Admin Albuterol/Ipratropium 3 ml 12/11/20 20:00 12/16/20 07:45 Albuterol/Iprat 2.5/0.5mg 3 Ml Ampul.Neb INHALE 3 ml RQ4H HI Administration Aspirin 81 mg 12/12/20 09:00 12/16/20 07:54 Aspirin Enteric Coated 81 Mg Tablet.Dr PO 81 mg DAILY [facility] Administration Atorvastatin Calcium 10 mg 12/12/20 21:00 12/15/20 21:56 Atorvastatin Calcium 10 Mg Tablet PO 10 mg BEDTIME [facility] Administration Enoxaparin Sodium 40 mg 12/11/20 20:00 12/15/20 21:57 Enoxaparin Sodium 40 Mg/0.4 Ml Syringe SUBCUT 40 mg Q24H HI Administration Fluoxetine HCl 40 mg 12/12/20 09:00 12/16/20 07:53 Fluoxetine Hcl 20 Mg Capsule PO 40 mg DAILY [facility] Administration Fluticasone Propionate 2 puff 12/12/20 08:00 12/16/20 07:46 Fluticasone Propionate 100 Mcg Blst.W.Dev INHALE 2 puff RBID [facility] Administration Furosemide 40 mg 12/15/20 09:00 12/16/20 07:55 Furosemide 40 Mg Tablet PO 40 mg DAILY [facility] Administration Protocol Insulin Glargine 60 unit 12/13/20 21:00 12/15/20 21:52 Insulin Glargine,Hum.Rec.Anlog 100 Unit/Ml 10 Ml Vial SUBCUT 60 unit BEDTIME [facility] Administration Insulin Human Lispro 0 unit 12/12/20 21:00 12/16/20 07:55 Insulin Lispro 100 Unit/Ml 3 Ml Vial SUBCUT 6 unit QIDACHS [facility] Administration Protocol Isosorbide Mononitrate 30 mg 12/12/20 09:00 12/16/20 07:55 Isosorbide Mononitrate 30 Mg Tab.Er.24h PO 30 mg DAILY [facility] Administration Protocol Metoprolol Succinate 50 mg 12/12/20 09:00 12/16/20 07:54 Metoprolol Succinate Er 50 Mg Tab.Er.24h PO 50 mg DAILY [facility] Administration Protocol Omeprazole 20 mg 12/12/20 08:00 12/16/20 05:52 Omeprazole 20 Mg Capsule.Dr PO 20 mg DAILY@0630 [facility] Administration Pharmacy Consult 1 each 12/11/20 19:42 Consult Rx Perform Med Rec MISCELLANE ONCE PRN Consult order Pregabalin 100 mg 12/12/20 09:00 12/16/20 07:54 Pregabalin 100 Mg Capsule PO 100 mg BID HI Administration Sodium Chloride 3 ml 12/12/20 00:00 12/16/20 08:00 0.9 % Sodium Chloride Flush 3 Ml Syringe IVFLUSH 3 ml QSHIFT [facility] Administration Tizanidine HCl 4 mg 12/12/20 08:00 12/15/20 21:53 Tizanidine Hcl 4 Mg Tablet PO 4 mg BEDTIME [facility] Administration Tramadol HCl 100 mg 12/12/20 07:21 12/15/20 21:52 Tramadol Hcl 50 Mg Tablet PO 100 mg Q8H PRN Administration Pain Vitamin D 50 mcg 12/12/20 09:00 12/16/20 07:54 Cholecalciferol (Vitamin D3) 25 Mcg Tablet PO 50 mcg DAILY [facility] Administration Labs CBC & Chem 7: 12/11/20 10:53 12/15/20 05:48 Assessment and Plan (1) CKD (chronic kidney disease) stage 3, GFR 30-59 ml/min: Status: Acute (2) CHF (congestive heart failure): Status: Deleted (3) Hyperglycemia: Status: Deleted Assessment and Plan: 60-year-old female who presents to the hospital with lower leg swelling DM insulin better controlled Acute hypoxic and hypercapnic respiratory failure Secondary to acute on chronic diastolic CHF and obesity hypoventilation Changed to oral Lasix if going home will do home o2 eval, however, patient requesting pt eval for STR Diarrhea resolved neg Cdif Hypertension Amlodipine GERD PPI Hyperlipidemia Statin GERD continue omeprazole FELICIA resolved
[2020-12-16 11:22] LABS: Glucose, Whole Blood 169 mg/dL (60-115)
[2020-12-16 16:11] LABS: Glucose, Whole Blood 209 mg/dL (60-115)
[2020-12-16 20:41] LABS: Glucose, Whole Blood 208 mg/dL (60-115)
[2020-12-16] MEDS: Enoxaparin Sodium 40 MG/0.4 ML SYRINGE SUBCUT (21:05)
[2020-12-16] MEDS: Atorvastatin Calcium 10 MG TABLET PO (21:06)
[2020-12-16] MEDS: Insulin Glargine,Hum.rec.anlog 100 UNIT/ML 10 ML VIAL 60 UNIT SUBCUT (21:06)
[2020-12-16] MEDS: TiZANidine HCL 4 MG TABLET PO (21:07)
[2020-12-16] MEDS: traMADoL HCL 50 MG TABLET 100 MG PO (21:07)
[2020-12-17] VITALS (10 sets, daily range): BP systolic 116–161; BP diastolic 63–89; PULSE 68–103; RESP 18–20; TEMP 36.6–37.7; O2SAT 92–100; BMI 49.8
[2020-12-17] MEDS: Albuterol/Iprat 2.5/0.5MG 3 ML AMPUL.NEB INHALE ×4 (00:09→15:32)
[2020-12-17] MEDS: Omeprazole 20 MG CAPSULE.DR PO (05:56)
[2020-12-17 07:14] LABS: Hematocrit 31.9 % (37-47); Hemoglobin 9.4 g/dl (12.0-16.0); Mean Corpuscular HGB Conc 29.5 g/dl (31.0-35.0); Mean Corpuscular Hemoglobin 26.4 pg (27.0-33.0); Mean Corpuscular Volume 89.6 fL (80-98); Mean Platelet Volume 9.8 fL (9.4-12.3); Platelet Count 151 X10*3/uL (160-400); Red Blood Count 3.56 X10*6/uL (4.20-5.50); Red Cell Distribution Width 16.1 % (11.0-16.0); White Blood Count 9.6 X10*3/uL (4.8-10.8)
[2020-12-17 07:14] LABS: Glucose, Whole Blood 217 mg/dL (60-115)
[2020-12-17] MEDS: Insulin Lispro 100 UNIT/ML 3 ML VIAL SUBCUT ×4 (07:27→21:13)
[2020-12-17] MEDS: Pregabalin 100 MG CAPSULE PO ×2 (07:28→21:12)
[2020-12-17] MEDS: Isosorbide Mononitrate 30 MG TAB.ER.24H PO (07:28)
[2020-12-17] MEDS: 0.9 % Sodium Chloride Flush 3 ML SYRINGE IVFLUSH ×3 (07:28→21:13)
[2020-12-17] MEDS: Aspirin Enteric Coated 81 MG TABLET.DR PO (07:28)
[2020-12-17] MEDS: Furosemide 40 MG TABLET PO (07:28)
[2020-12-17] MEDS: Cholecalciferol (Vitamin D3) 25 MCG TABLET 50 MCG PO (07:28)
[2020-12-17] MEDS: Metoprolol Succinate ER 50 MG TAB.ER.24H PO (07:28)
[2020-12-17] MEDS: FLUoxetine HCl 20 MG CAPSULE 40 MG PO (07:29)
[2020-12-17] MEDS: traMADoL HCL 50 MG TABLET 100 MG PO ×2 (07:38→21:10)
[2020-12-17 07:45] LABS: Anion Gap 14 (12-20); Blood Urea Nitrogen 25 mg/dL (9-16); Calcium 8.1 mg/dL (8.4-10.2); Carbon Dioxide 27 mmol/L (22-29); Chloride 106 mmol/L (96-108); Creatinine Clr Calc Pharmacy 61.3; Estimated Glomerular Filt Rate 44; Glucose Fasting 252 mg/dL (60-99); Potassium 4.3 mmol/L (3.3-5.1); Sodium 143 mmol/L (135-145)
[2020-12-17] MEDS: Fluticasone Propionate 100 MCG BLST.W.DEV 2 PUFF INHALE (07:58)
--- NOTE | 2020-12-17 10:38 | P.PNIM_ITS ---
Subjective Subjective Date of Service: 12/17/20 Interval History: back pain Cardiovascular Cardiovascular: Reports no additional cardiovascular complaints Gastrointestinal Gastrointestinal: Reports no additional gastrointestinal complaints Physical Exam Vital Signs: Vital Signs: Last Vital Signs Temp 97.8 F 12/17/20 07:26 Pulse 92 12/17/20 08:05 Resp 18 12/17/20 07:26 BP 124/67 12/17/20 07:28 Pulse Ox 95 12/17/20 07:26 Body Mass Index 49.8 Constitutional: Not in acute distress. Cvs: rrr, [id number] , no murmur res:fair air entry, slightly diminshed at bases. abd: no rebound or guarding ,nt, bs present. ext pulses present , no cyanosis neuro: axo3 , nonfocal. Objective Data Current Medications Generic Name Dose Route Start Last Admin Trade Name Freq PRN Reason Stop Dose Admin Albuterol/Ipratropium 3 ml 12/11/20 20:00 12/17/20 07:58 Albuterol/Iprat 2.5/0.5mg 3 Ml Ampul.Neb INHALE 3 ml RQ4H HI Administration Aspirin 81 mg 12/12/20 09:00 12/17/20 07:28 Aspirin Enteric Coated 81 Mg Tablet.Dr PO 81 mg DAILY HI Administration Atorvastatin Calcium 10 mg 12/12/20 21:00 12/16/20 21:06 Atorvastatin Calcium 10 Mg Tablet PO 10 mg BEDTIME HI Administration Enoxaparin Sodium 40 mg 12/11/20 20:00 12/16/20 21:05 Enoxaparin Sodium 40 Mg/0.4 Ml Syringe SUBCUT 40 mg Q24H HI Administration Fluoxetine HCl 40 mg 12/12/20 09:00 12/17/20 07:29 Fluoxetine Hcl 20 Mg Capsule PO 40 mg DAILY HI Administration Fluticasone Propionate 2 puff 12/12/20 08:00 12/17/20 07:58 Fluticasone Propionate 100 Mcg Blst.W.Dev INHALE 2 puff RBID HI Administration Furosemide 40 mg 12/15/20 09:00 12/17/20 07:28 Furosemide 40 Mg Tablet PO 40 mg DAILY HI Administration Protocol Insulin Glargine 60 unit 12/13/20 21:00 12/16/20 21:06 Insulin Glargine,Hum.Rec.Anlog 100 Unit/Ml 10 Ml Vial SUBCUT 60 unit BEDTIME HI Administration Insulin Human Lispro 0 unit 12/12/20 21:00 12/17/20 07:27 Insulin Lispro 100 Unit/Ml 3 Ml Vial SUBCUT 4 unit QIDACHS [facility] Administration Protocol Isosorbide Mononitrate 30 mg 12/12/20 09:00 12/17/20 07:28 Isosorbide Mononitrate 30 Mg Tab.Er.24h PO 30 mg DAILY HI Administration Protocol Metoprolol Succinate 50 mg 12/12/20 09:00 12/17/20 07:28 Metoprolol Succinate Er 50 Mg Tab.Er.24h PO 50 mg DAILY HI Administration Protocol Omeprazole 20 mg 12/12/20 08:00 12/17/20 05:56 Omeprazole 20 Mg Capsule.Dr PO 20 mg DAILY@0630 [facility] Administration Pharmacy Consult 1 each 12/11/20 19:42 Consult Rx Perform Med Rec MISCELLANE ONCE PRN Consult order Pregabalin 100 mg 12/12/20 09:00 12/17/20 07:28 Pregabalin 100 Mg Capsule PO 100 mg BID HI Administration Sodium Chloride 3 ml 12/12/20 00:00 12/17/20 07:28 0.9 % Sodium Chloride Flush 3 Ml Syringe IVFLUSH 3 ml QSHIFT HI Administration Tizanidine HCl 4 mg 12/12/20 08:00 12/16/20 21:07 Tizanidine Hcl 4 Mg Tablet PO 4 mg BEDTIME HI Administration Tramadol HCl 100 mg 12/17/20 07:33 12/17/20 07:38 Tramadol Hcl 50 Mg Tablet PO 100 mg Q8H PRN Administration pain Vitamin D 50 mcg 12/12/20 09:00 12/17/20 07:28 Cholecalciferol (Vitamin D3) 25 Mcg Tablet PO 50 mcg DAILY [facility] Administration Labs CBC & Chem 7: 12/17/20 07:05 12/17/20 07:05 Assessment and Plan (1) CKD (chronic kidney disease) stage 3, GFR 30-59 ml/min: Status: Acute (2) CHF (congestive heart failure): Status: Deleted (3) Hyperglycemia: Status: Deleted Assessment and Plan: 60-year-old female who presents to the hospital with lower leg swelling DM insulin better controlled Acute hypoxic and hypercapnic respiratory failure Secondary to acute on chronic diastolic CHF and obesity hypoventilation Changed to oral Lasix if going home will do home o2 eval, however, patient requesting pt eval for STR, back pain zanaflex Diarrhea resolved neg Cdif Hypertension Amlodipine GERD PPI Hyperlipidemia Statin GERD continue omeprazole FELICIA resolved
[2020-12-17 11:13] LABS: Glucose, Whole Blood 247 mg/dL (60-115)
[2020-12-17 16:10] LABS: Glucose, Whole Blood 214 mg/dL (60-115)
[2020-12-17 19:50] LABS: Glucose, Whole Blood 198 mg/dL (60-115)
[2020-12-17] MEDS: Enoxaparin Sodium 40 MG/0.4 ML SYRINGE SUBCUT (21:10)
[2020-12-17] MEDS: TiZANidine HCL 4 MG TABLET PO (21:12)
[2020-12-17] MEDS: Atorvastatin Calcium 10 MG TABLET PO (21:12)
[2020-12-17] MEDS: Insulin Glargine,Hum.rec.anlog 100 UNIT/ML 10 ML VIAL 60 UNIT SUBCUT (21:13)
[2020-12-18] VITALS (10 sets, daily range): BP systolic 115–149; BP diastolic 62–72; PULSE 66–103; RESP 18–20; TEMP 36.7–37.1; O2SAT 92–96; BMI 49.3
[2020-12-18] MEDS: Albuterol/Iprat 2.5/0.5MG 3 ML AMPUL.NEB INHALE ×3 (00:03→15:18)
--- NOTE | 2020-12-18 03:08 | PC.NURSE ---
At 0235 pt had a 4 beat run of V-tach. notified. Pt asymptomatic, resting in bed. No new orders at this time.
[2020-12-18] MEDS: Omeprazole 20 MG CAPSULE.DR PO (06:16)
[2020-12-18 07:44] LABS: Glucose, Whole Blood 271 mg/dL (60-115)
[2020-12-18] MEDS: Insulin Lispro 100 UNIT/ML 3 ML VIAL SUBCUT ×3 (08:35→16:44)
[2020-12-18] MEDS: Isosorbide Mononitrate 30 MG TAB.ER.24H PO (08:36)
[2020-12-18] MEDS: Aspirin Enteric Coated 81 MG TABLET.DR PO (08:36)
[2020-12-18] MEDS: 0.9 % Sodium Chloride Flush 3 ML SYRINGE IVFLUSH ×2 (08:36→15:59)
[2020-12-18] MEDS: Pregabalin 100 MG CAPSULE PO (08:36)
[2020-12-18] MEDS: Cholecalciferol (Vitamin D3) 25 MCG TABLET 50 MCG PO (08:36)
[2020-12-18] MEDS: FLUoxetine HCl 20 MG CAPSULE 40 MG PO (08:37)
[2020-12-18] MEDS: Furosemide 40 MG TABLET PO (08:37)
[2020-12-18] MEDS: Metoprolol Succinate ER 50 MG TAB.ER.24H PO (08:37)
[2020-12-18] MEDS: traMADoL HCL 50 MG TABLET 100 MG PO (09:25)
[2020-12-18 11:30] LABS: Glucose, Whole Blood 261 mg/dL (60-115)
--- NOTE | 2020-12-18 13:24 | HO.PM.IMPN ---
Subjective Subjective Date of Service: 12/18/20 Interval History: feels ok Cardiovascular Cardiovascular: Reports no additional cardiovascular complaints Respiratory Respiratory: Reports no additional respiratory complaints Physical Exam Vital Signs: Vital Signs: Last Vital Signs Temp 98.3 F 12/18/20 11:11 Pulse 91 12/18/20 11:11 Resp 20 12/18/20 11:11 BP 133/62 12/18/20 11:11 Pulse Ox 94 12/18/20 11:11 Body Mass Index 49.3 Constitutional: Not in acute distress. Cvs: rrr, [id number] , no murmur res:fair air entry, slightly diminshed at bases. abd: no rebound or guarding ,nt, bs present. ext pulses present , no cyanosis neuro: axo3 , nonfocal. Objective Data Current Medications Generic Name Dose Route Start Last Admin Trade Name Freq PRN Reason Stop Dose Admin Albuterol/Ipratropium 3 ml 12/11/20 20:00 12/18/20 11:06 Albuterol/Iprat 2.5/0.5mg 3 Ml Ampul.Neb INHALE 3 ml RQ4H HI Administration Aspirin 81 mg 12/12/20 09:00 12/18/20 08:36 Aspirin Enteric Coated 81 Mg Tablet.Dr PO 81 mg DAILY HI Administration Atorvastatin Calcium 10 mg 12/12/20 21:00 12/17/20 21:12 Atorvastatin Calcium 10 Mg Tablet PO 10 mg BEDTIME HI Administration Enoxaparin Sodium 40 mg 12/11/20 20:00 12/17/20 21:10 Enoxaparin Sodium 40 Mg/0.4 Ml Syringe SUBCUT 40 mg Q24H HI Administration Fluoxetine HCl 40 mg 12/12/20 09:00 12/18/20 08:37 Fluoxetine Hcl 20 Mg Capsule PO 40 mg DAILY HI Administration Fluticasone Propionate 2 puff 12/12/20 08:00 12/18/20 07:40 Fluticasone Propionate 100 Mcg Blst.W.Dev INHALE Not Given RBID HI Furosemide 40 mg 12/15/20 09:00 12/18/20 08:37 Furosemide 40 Mg Tablet PO 40 mg DAILY HI Administration Protocol Insulin Glargine 60 unit 12/13/20 21:00 12/17/20 21:13 Insulin Glargine,Hum.Rec.Anlog 100 Unit/Ml 10 Ml Vial SUBCUT 60 unit BEDTIME HI Administration Insulin Human Lispro 0 unit 12/12/20 21:00 12/18/20 12:44 Insulin Lispro 100 Unit/Ml 3 Ml Vial SUBCUT 6 unit QIDACHS [facility] Administration Protocol Isosorbide Mononitrate 30 mg 12/12/20 09:00 12/18/20 08:36 Isosorbide Mononitrate 30 Mg Tab.Er.24h PO 30 mg DAILY HI Administration Protocol Metoprolol Succinate 50 mg 12/12/20 09:00 12/18/20 08:37 Metoprolol Succinate Er 50 Mg Tab.Er.24h PO 50 mg DAILY HI Administration Protocol Omeprazole 20 mg 12/12/20 08:00 12/18/20 06:16 Omeprazole 20 Mg Capsule.Dr PO 20 mg DAILY@0630 [facility] Administration Pharmacy Consult 1 each 12/11/20 19:42 Consult Rx Perform Med Rec MISCELLANE ONCE PRN Consult order Pregabalin 100 mg 12/12/20 09:00 12/18/20 08:36 Pregabalin 100 Mg Capsule PO 100 mg BID HI Administration Sodium Chloride 3 ml 12/12/20 00:00 12/18/20 08:36 0.9 % Sodium Chloride Flush 3 Ml Syringe IVFLUSH 3 ml QSHIFT HI Administration Tizanidine HCl 4 mg 12/12/20 08:00 12/17/20 21:12 Tizanidine Hcl 4 Mg Tablet PO 4 mg BEDTIME HI Administration Tramadol HCl 100 mg 12/17/20 07:33 12/18/20 09:25 Tramadol Hcl 50 Mg Tablet PO 100 mg Q8H PRN Administration pain Vitamin D 50 mcg 12/12/20 09:00 12/18/20 08:36 Cholecalciferol (Vitamin D3) 25 Mcg Tablet PO 50 mcg DAILY [facility] Administration Labs CBC & Chem 7: 12/17/20 07:05 12/17/20 07:05 Assessment and Plan (1) CKD (chronic kidney disease) stage 3, GFR 30-59 ml/min: Status: Acute (2) CHF (congestive heart failure): Status: Deleted (3) Hyperglycemia: Status: Deleted Assessment and Plan: 60-year-old female who presents to the hospital with lower leg swelling DM insulin better controlled Acute hypoxic and hypercapnic respiratory failure Secondary to acute on chronic diastolic CHF and obesity hypoventilation Changed to oral Lasix if going home will do home o2 eval, however, patient requesting STR, awaiting bed offer back pain zanaflex Diarrhea resolved neg Cdif Hypertension Amlodipine GERD PPI Hyperlipidemia Statin GERD continue omeprazole FELICIA resolved
--- NOTE | 2020-12-18 14:26 | P.DS_ITS ---
DS: Providers Provider Date of Service: 12/18/20 Date of admission: 12/11/20 19:09 Primary care physician: Unknown Physician Consults: 12/11/20 19:09 Consult to Cardiology Routine Consulting Provider: Tim Szymanski Reason for consultation: chf Has provider been notified: No 12/12/20 11:02 Consult to Nephrology Routine Consulting Provider: Walt Cevallos Reason for consultation: asif , chf Has provider been notified: No 12/14/20 11:37 Consult to Pulmonology Routine Consulting Provider: Branden Francis Reason for consultation: Acute hypoxemic/hypercarbic respiratory failure- question sleep apnea /chf Has provider been notified: No DS: Diagnosis Discharge Diagnosis (1) CKD (chronic kidney disease) stage 3, GFR 30-59 ml/min: Status: Acute (2) CHF (congestive heart failure): Status: Deleted (3) Hyperglycemia: Status: Deleted (4) Acute on chronic combined systolic and diastolic CHF (congestive heart failure): Status: Acute (5) Acute respiratory failure with hypoxia and hypercapnia: Status: Acute (6) Diabetes: Status: Acute DS: Medications Discharge Medications Home Medications: Home Medications Medication Instructions Recorded Confirmed Flovent HFA 2 puff INHALATION BID 11/23/20 12/11/20 Lantus U-100 Insulin 80 unit SUBCUT BEDTIME 11/23/20 12/11/20 albuterol sulfate [ProAir HFA] 2 puff INHALATION Q4H PRN 11/23/20 12/11/20 amlodipine 10 mg PO DAILY 11/23/20 12/11/20 aspirin 81 mg PO DAILY 11/23/20 12/11/20 fluoxetine 40 mg PO DAILY 11/23/20 12/11/20 insulin lispro [Humalog U-100 See Rx Instructions .ROUTE .COMPLEX 11/23/20 12/11/20 Insulin] metoprolol succinate 50 mg PO DAILY 11/23/20 12/11/20 omeprazole 20 mg PO BEDTIME 11/23/20 12/11/20 simvastatin 20 mg PO BEDTIME 11/23/20 12/11/20 tramadol 100 mg PO Q8H PRN 11/23/20 12/11/20 cholecalciferol (vitamin D3) 50 mcg PO DAILY 12/11/20 12/11/20 isosorbide mononitrate 30 mg PO DAILY 12/11/20 12/11/20 pregabalin [Lyrica] 100 mg PO BID 12/11/20 12/11/20 tizanidine 4 mg PO BEDTIME 12/11/20 12/11/20 Previous Rx's Medication Instructions Recorded furosemide 40 mg PO DAILY #0 tab 12/18/20 DS: Summary Hospital Course Hospital Course: Patient was admitted for acute hypoxic and hypercapnic respiratory failure secondary to acute on chronic combined systolic and diastolic CHF and obesity hypoventilation. IV Lasix with significant improvement in her symptoms. Course was also complicated by diabetes with hyperglycemia requiring IV insulin drip briefly. At time of discharge sugars are much better controlled. Patient also had some mild acute kidney injury on CKD but is quickly resolved to baseline. Patient is debilitated from her hospital stay. She will be discharged to senior living facility. She is expected to require less than 30 days. She should follow up with Pulmonary to arrange sleep study. Time Spent with Patient Time attestation: Total time spent providing and/or coordinating discharge services: Discharge coordination time: Greater than 30 minutes Quality: Stroke Does the patient have a stroke diagnosis?: No Physical Exam Vital Signs: Vital Signs: Last Vital Signs Temp 98.3 F 12/18/20 11:11 Pulse 91 12/18/20 11:11 Resp 20 12/18/20 11:11 BP 133/62 12/18/20 11:11 Pulse Ox 94 12/18/20 11:11 Body Mass Index 49.3 General: AO X 3, no acute distress Resp: dimisniehd CVS: S1,S2,RRR GI: soft, non tender, non distended Neuro: motor grossly intact Psych: appropriate affect DS: Data Data Completed and Pending Labs on day of discharge: Laboratory Results - last 24 hr 12/17/20 12/17/20 12/18/20 16:07 19:46 07:36 POC Glucose 214 H 198 H 271 H 12/18/20 11:13 POC Glucose 261 H Discharge Plan Discharge Patient Disposition: er SNF Discharge Diagnosis: chf Referrals: [facility] [Outside] - 1 Week Branden Francis MD [Physician] - 1 Week Physician,Unknown [Primary Care Provider] - 1 Week Discharge Medications: New furosemide 40 mg Tablet 40 mg PO DAILY Qty: 0 RF: 0 Continued fluoxetine 40 mg capsule 40 mg PO DAILY RF: 0 metoprolol succinate 50 mg tablet extended release 24 hr 50 mg PO DAILY RF: 0 aspirin 81 mg tablet,delayed release (DR/EC) 81 mg PO DAILY RF: 0 tramadol 50 mg tablet 100 mg PO Q8H PRN (Reason: Pain) RF: 0 simvastatin 20 mg tablet 20 mg PO BEDTIME RF: 0 omeprazole 20 mg capsule,delayed release(DR/EC) 20 mg PO BEDTIME RF: 0 insulin lispro [Humalog U-100 Insulin] 100 unit/mL solution See Rx Instructions sliding scale dose .ROUTE .COMPLEX RF: 0 albuterol sulfate [ProAir HFA] 90 mcg/actuation HFA aerosol inhaler 2 puff inhalation Q4H PRN (Reason: Dyspnea) RF: 0 Flovent HFA 110 mcg/actuation HFA aerosol inhaler 2 puff inhalation BID RF: 0 Lantus U-100 Insulin 100 unit/mL solution 80 unit subcut BEDTIME RF: 0 amlodipine 10 mg tablet 10 mg PO DAILY RF: 0 tizanidine 4 mg Tablet 4 mg PO BEDTIME RF: 0 isosorbide mononitrate 30 mg Tablet Extended Release 24 Hr 30 mg PO DAILY RF: 0 pregabalin [Lyrica] 100 mg Capsule 100 mg PO BID RF: 0 cholecalciferol (vitamin D3) 50 mcg (2,000 unit) Capsule 50 mcg PO DAILY RF: 0 Discontinued furosemide 20 mg tablet 20 mg PO DAILY RF: 0 Discharge Orders: Discharge Order (Routine); Ordered 12/18/20 Ordered By: Vinayak Tipton Diet: advance to usual diet Activity on Discharge: As tolerated Stand Alone Forms: Patient Portal Discharge page Care Plan Goals: recovery Health Concerns: roseanna thompson Plan of Treatment: tasha rivera, follow up with pulm for sleep study, weight loss Assessment: see above
--- NOTE | 2020-12-18 14:46 | MHC.CM.PN ---
Patient has been medically cleared for dc to STR/SNF today. Per Patient's request, a broad SNF search was done and Patient has chosen [facility]. Patient will dc to [facility] today at 5 PM, via [facility]. Patient is aware of and in agreement with the dc plan.
[2020-12-18 16:29] LABS: COVID-19 Test Negative (Negative); IDNOW Serial# 08D9AD1C
[2020-12-18 16:31] LABS: Glucose, Whole Blood 214 mg/dL (60-115)
== END 2020-12-18 17:30 | disposition skilled nursing facility (03) | DRG 194 ==
LOC: HO.ED 17:03 → HO.IMC 19:30 → HO.ICU 12-12 13:30 → HO.IMC 12-12 18:06
PROVIDERS: Internal Medicine Cardiovascular Disease; Admitting Provider Internal Medicine; Emergency Provider Emergency Medicine; PCP Internal Medicine; Visit Provider Internal Medicine
DX: I13.0 Hypertensive heart and chronic kidney disease with heart failure and stage 1 through stage 4 chronic kidney disease, or unspecified chronic kidney disease (principal); J96.01 Acute respiratory failure with hypoxia; E11.00 Type 2 diabetes mellitus with hyperosmolarity without nonketotic hyperglycemic-hyperosmolar coma (NKHHC); J96.02 Acute respiratory failure with hypercapnia; I50.43 Acute on chronic combined systolic (congestive) and diastolic (congestive) heart failure; K21.9 Gastro-esophageal reflux disease without esophagitis; N17.9 Acute kidney failure, unspecified; F32.9 Major depressive disorder, single episode, unspecified; E78.5 Hyperlipidemia, unspecified; E66.2 Morbid (severe) obesity with alveolar hypoventilation; Z79.4 Long term (current) use of insulin; I47.1 Supraventricular tachycardia; E11.22 Type 2 diabetes mellitus with diabetic chronic kidney disease; Z68.42 Body mass index [BMI] 45.0-49.9, adult; N18.30 Chronic kidney disease, stage 3 unspecified; Z88.6 Allergy status to analgesic agent; Z79.82 Long term (current) use of aspirin; Z79.899 Other long term (current) drug therapy
CPT/HCPCS: 0241U; 36415; 71045; 71275; 80048; 80076; 81001; 82947; 83880; 84484; 85025; 85027; 85379; 85610; 87324; 87449; 87635; 87651; 93005; 94640; 94660; 97110; 97162; 99285; J1650; J1940; J2920; Q9967

== ENCOUNTER 2021-01-09 18:40 | Inpatient (IN) | payer MEDICAID, SELFPAY ==
--- NOTE | ~2021-01-09 | XR_ITS ---
EXAMINATION: XR CHEST CLINICAL INFORMATION: Shortness of breath COMPARISON: CT angiogram chest 12/11/2020 and chest radiograph 12/11/2020 TECHNIQUE: Frontal view of the chest was obtained. FINDINGS: Again seen is cardiomegaly. There is upper zone redistribution consistent with elevated left ventricular end-diastolic pressure. There is prominence of the interstitium consistent with mild interstitial edema and small bilateral pleural effusions are present. Findings appear worse when compared to the prior exam. XR/XR chest 1V IMPRESSION: Cardiomegaly with CHF and mild interstitial edema with bilateral pleural effusions.
--- NOTE | ~2021-01-09 | XR_ITS ---
EXAMINATION: XR CHEST CLINICAL INFORMATION: Follow-up CHF COMPARISON: Previous chest x-ray most recent 01/09/2021 TECHNIQUE: Frontal view of the chest was obtained. FINDINGS: The cardiac silhouette is enlarged but stable. There is interval improvement in pulmonary venous redistribution and perihilar and lower lobe airspace disease suggestive of improving pulmonary edema. There is no pleural effusion or pneumothorax. Visualized bony structures are unremarkable. XR/XR chest 1V IMPRESSION: Stable enlargement of the cardiac silhouette. Improved pulmonary edema from 01/09/2021 exam.
[2021-01-09 18:53] VITALS: BP 134/69; PULSE 84; RESP 26; TEMP 36.6; O2SAT 95; BMI 56.3
--- NOTE | 2021-01-09 19:16 | ECG_ITS ---
Test Reason : SOB Blood Pressure : / mmHG Vent. Rate : 085 BPM Atrial Rate : 085 BPM P-R Int : 168 ms QRS Dur : 102 ms QT Int : 408 ms P-R-T Axes : 058 053 050 degrees QTc Int : 485 ms Normal sinus rhythm Prolonged QT Abnormal ECG When compared with ECG of 11-DEC-2020 10:50, Premature ventricular complexes are no longer Present Referred By: Yolanda Grier Electronically Signed By:Orlando Hebert
--- NOTE | 2021-01-09 19:34 | ED.GENADULT ---
HPI - General Adult General Chief complaint: Dyspnea Stated complaint: SOB WITH EXERTION 93% 3L Time Seen by Provider: 01/09/21 19:06 Source: patient and EMS Mode of arrival: EMS Limitations: no limitations History of Present Illness HPI narrative: Patient comes emergency room complaining of shortness of breath. Patient states that for the last 4 days, her breathing has become more labored, initially started with exertion but now it is arrest 2. Patient does not use oxygen at home. Of chest pressure bilaterally, denies diaphoresis. Patient has been using her inhalers at home, states they have not been working. On arrival to the emergency room, patient was on room air, saturating at 87%, patient placed on 2 L. Related Data Home Medications Medication Instructions Recorded Confirmed Flovent HFA 2 puff INHALATION BID 11/23/20 01/09/21 Lantus U-100 Insulin 80 unit SUBCUT BEDTIME 11/23/20 01/09/21 albuterol sulfate [ProAir HFA] 2 puff INHALATION Q4H PRN 11/23/20 01/09/21 amlodipine 10 mg PO DAILY 11/23/20 01/09/21 aspirin 81 mg PO DAILY 11/23/20 01/09/21 fluoxetine 40 mg PO DAILY 11/23/20 01/09/21 insulin lispro [Humalog U-100 See Rx Instructions .ROUTE .COMPLEX 11/23/20 01/09/21 Insulin] metoprolol succinate 50 mg PO DAILY 11/23/20 01/09/21 omeprazole 20 mg PO BEDTIME 11/23/20 01/09/21 simvastatin 20 mg PO BEDTIME 11/23/20 01/09/21 cholecalciferol (vitamin D3) 50 mcg PO DAILY 12/11/20 01/09/21 isosorbide mononitrate 30 mg PO DAILY 12/11/20 01/09/21 tizanidine 4 mg PO BEDTIME 12/11/20 01/09/21 furosemide 20 mg PO QPM 01/09/21 01/09/21 furosemide 40 mg PO DAILY 01/09/21 01/09/21 gabapentin 1 cap PO TID 01/09/21 01/09/21 Previous Rx's Medication Instructions Recorded pregabalin [Lyrica] 100 mg PO BID #10 cap 12/18/20 Allergies Allergy/AdvReac Type Severity Reaction Status Date / Time No Known Allergies Allergy Unverified 12/11/20 10:41 acetaminophen [Tylenol] AdvReac Unknown vommiting, Verified 11/22/20 21:28 itching ibuprofen AdvReac Unknown vommiting, Verified 11/22/20 21:28 itching morphine AdvReac Unknown vomiting Verified 11/22/20 21:28 Motrin Allergy Unknown itching Uncoded 09/21/19 00:00 Review of Systems Review of Systems: Constitutional : No Weight loss, No Fever, No Chills, No Night Sweats, No Fatigue, No Malaise ENT/Mouth : No Hearing loss, No Ear Pain, No Nasal Congestion, No Sinus Pain, No Hoarseness, No sore throat, No Rhinorrhea, No Swallowing Difficulty Eyes: No Eye Pain, No Swelling, No Redness, No Foreign Body, No Discharge, No Vision Changes Cardiovascular : No Chest Pain but complaining of constant chest pressure for 4 days, complaining of shortness of breath at rest and worse with exertion, complaining of Orthopnea, worsening bilateral lower extremity edema, No Palpitations Respiratory : No Cough, No Sputum, No Wheezing, No Smoke Exposure, complaining of dyspnea Gastrointestinal : No Nausea, No Vomiting, No Diarrhea, No Constipation, No abdominal Pain, No Hematochezia, No Melena Genitourinary : no irregular bleeding, No Dysuria, No Urinary Frequency, No Hematuria, No Urinary Incontinence, No Urgency, No Flank Pain, No Urinary Flow Changes, No Hesitancy Musculoskeletal : No joint pain, No Myalgias, No Joint Swelling Skin : No Skin Lesions, No rash Neuro : No Weakness, No Numbness, No Paresthesias, No Loss of Consciousness, No Dizziness, No Headache Psych : No Anxiety/Panic, No Depression, No SI/HI/AH/VH, No Social Issues, Heme/Lymph: No Bruising, No Bleeding,No Lymphadenopathy Endocrine : No Polyuria, No Polydipsia, No Temperature Intolerance PMFSH Past Medical History Medical History Asthma delivery delivered Chronic pain Depression Diabetes Diabetic neuropathy, painful High cholesterol Hypertension Morbid obesity NICM (nonischemic cardiomyopathy) Obesity hypoventilation syndrome DANIEL (obstructive sleep apnea) Surgical History Hx of cholecystectomy Social History Social History Household Members: Other Household Members Other:: GRANDSON Housing: Apartment Housing Other:: [place] [facility] Do you presently have visiting nurse or other home services: Yes Alcohol intake: never Patient Tobacco Use Status: Former Tobacco user Tobacco use type: Cigarette Years Smoked: 38 Smoked in Last 30 Days: No Second Hand Smoke Exposure: No Use of substances other than those prescribed or required for medical reasons: No Substance Use Type: Marijuana Have you been hit, kicked, punched, or otherwise hurt by someone within the past year? If so, by whom?: No Do you feel safe in your current relationship?: No Current Relationship Is there a partner from a previous relationship who is making you feel unsafe now?: No Are you made to feel afraid or neglected: No Advance Directives: No Advance Directives Information Provided: Yes Do you have thoughts of harming others: None Do you have a plan to hurt others: No Plan Recently lost weight without trying: No Nutrition Risks: No Nutritional Risk service: No Current occupational status: disabled Physical Exam Vital Signs: Vital Signs: Last Vital Signs Temp 97.4 F 01/10/21 00:00 Pulse 90 01/10/21 00:00 Resp 22 H 01/10/21 00:00 BP 133/71 01/10/21 00:00 Pulse Ox 92 01/10/21 00:00 Oxygen Flow Rate 2 01/09/21 18:53 Body Mass Index 56.3 Appearance: Alert. Oriented X3. No acute distress. Eyes: Pupils equal, round and reactive to light. ENT: Pharynx normal. Neck: Normal inspection. Neck supple. No lymph nodes noted. No crepitus CVS: Normal heart rate and rhythm. Pulses normal. Normal S1 and S2 Respiratory: No respiratory distress. Breath sounds normal. No Wheezing. No rales Abdomen: Soft and nontender. No rigidity. No distention. good BS x4 Skin: Skin warm and dry. Normal skin color. Normal skin turgor. Extremities: No lower extremity edema. No lower extremity edema. No Lacerations. No Rash Neuro: Oriented X 3. No motor deficit. No sensory deficit. Moving all extermities. No slurred speech. Course Course Course Narrative: Patient has a CHF exacerbation. Patient desaturates to 87% on room air, patient currently on 2 L saturating at 93%. Patient was given Lasix and Kayexalate. I discussed the patient with our hospitalist, patient being admitted Medical Decision Making Lab Data Result diagrams: 01/09/21 19:46 01/09/21 19:46 Labs: Lab Results 01/09/21 01/09/21 01/09/21 Range/Units 19:45 19:45 19:46 WBC 8.3 (4.8-10.8) X10*3/uL RBC 3.70 L (4.20-5.50) X10*6/uL Hgb 9.4 L (12.0-16.0) g/dl Hct 34.0 L (37-47) % MCV 91.9 (80-98) fL MCH 25.4 L (27.0-33.0) pg MCHC 27.6 L (31.0-35.0) g/dl RDW 17.1 H (11.0-16.0) % Plt Count 178 (160-400) X10*3/uL MPV 10.4 (9.4-12.3) fL Immature Gran % (Auto) 1.0 H (0.0-0.4) % Neut % (Auto) 81.4 H (45-73) % Lymph % (Auto) 9.9 L (20-40) % Kemper % (Auto) 6.2 (2-11) % Eos % (Auto) 1.3 (0-4) % Baso % (Auto) 0.2 (0-2) % Lymph # (Auto) 0.8 L (1.2-4.9) X10*3/uL Kemper # (Auto) 0.5 (0.1-1.2) X10*3/uL Eos # (Auto) 0.1 (0.0-0.4) X10*3/uL Baso # (Auto) 0.0 (0.0-0.2) X10*3/uL Abs Immat Gran (auto) 0.08 H (0.00-0.03) X10*3/uL Absolute Neuts (auto) 6.7 (2.0-8.3) X10*3/uL Absolute Nucleated RBC 0.000 (0.0-0.012) X10*3/uL Nucleated RBC % (auto) 0.0 (0.0-0.2) /100WBC PT 11.5 (10.8-13.0) SEC INR 1.0 (0.9-1.1) VBG pH (7.32-7.43) VBG pCO2 mmHg VBG pO2 mmHg VBG HCO3 (22-26) mmol/L VBG O2 Saturation % VBG Base Excess mmol/L Sodium (135-145) mmol/L Potassium (3.3-5.1) mmol/L Chloride (96-108) mmol/L Carbon Dioxide (22-29) mmol/L Anion Gap (12-20) BUN (9-16) mg/dL Creatinine (0.5-1.4) mg/dL Estim Creat Clear Calc Estimated GFR Random Glucose (60-115) mg/dL Lactic Acid 0.9 (0.5-2.0) mmol/L Calcium (8.4-10.2) mg/dL Total Bilirubin (0.0-1.0) mg/dL Direct Bilirubin (0.0-0.5) mg/dL AST (5-31) U/L ALT (0-31) U/L Alkaline Phosphatase (39-117) U/L Troponin I High Sens (<3.5-17.0) ng/L B-Natriuretic Peptide (<100) pg/mL Total Protein (6.5-8.0) g/dL Albumin (3.5-5.0) g/dL Coronavirus (PCR) (Negative) Influenza Type A (PCR) (Negative) Influenza Type B (PCR) (Negative) RSV RNA Qual (PCR) (Negative) 01/09/21 01/09/21 01/09/21 Range/Units 19:46 19:46 19:46 WBC (4.8-10.8) X10*3/uL RBC (4.20-5.50) X10*6/uL Hgb (12.0-16.0) g/dl Hct (37-47) % MCV (80-98) fL MCH (27.0-33.0) pg MCHC (31.0-35.0) g/dl RDW (11.0-16.0) % Plt Count (160-400) X10*3/uL MPV (9.4-12.3) fL Immature Gran % (Auto) (0.0-0.4) % Neut % (Auto) (45-73) % Lymph % (Auto) (20-40) % Kemper % (Auto) (2-11) % Eos % (Auto) (0-4) % Baso % (Auto) (0-2) % Lymph # (Auto) (1.2-4.9) X10*3/uL Kemper # (Auto) (0.1-1.2) X10*3/uL Eos # (Auto) (0.0-0.4) X10*3/uL Baso # (Auto) (0.0-0.2) X10*3/uL Abs Immat Gran (auto) (0.00-0.03) X10*3/uL Absolute Neuts (auto) (2.0-8.3) X10*3/uL Absolute Nucleated RBC (0.0-0.012) X10*3/uL Nucleated RBC % (auto) (0.0-0.2) /100WBC PT (10.8-13.0) SEC INR (0.9-1.1) VBG pH (7.32-7.43) VBG pCO2 mmHg VBG pO2 mmHg VBG HCO3 (22-26) mmol/L VBG O2 Saturation % VBG Base Excess mmol/L Sodium 144 (135-145) mmol/L Potassium 5.4 H D (3.3-5.1) mmol/L Chloride 110 H (96-108) mmol/L Carbon Dioxide 27 (22-29) mmol/L Anion Gap 12 (12-20) BUN 63 H D (9-16) mg/dL Creatinine 1.24 (0.5-1.4) mg/dL Estim Creat Clear Calc 66.3 Estimated GFR 44 Random Glucose 167 H (60-115) mg/dL Lactic Acid (0.5-2.0) mmol/L Calcium 8.3 L (8.4-10.2) mg/dL Total Bilirubin 0.6 (0.0-1.0) mg/dL Direct Bilirubin 0.2 (0.0-0.5) mg/dL AST 11 (5-31) U/L ALT 12 (0-31) U/L Alkaline Phosphatase 94 (39-117) U/L Troponin I High Sens 6.4 (<3.5-17.0) ng/L B-Natriuretic Peptide 285 H (<100) pg/mL Total Protein 6.8 (6.5-8.0) g/dL Albumin 4.0 (3.5-5.0) g/dL Coronavirus (PCR) NEGATIVE (Negative) Influenza Type A (PCR) NEGATIVE (Negative) Influenza Type B (PCR) NEGATIVE (Negative) RSV RNA Qual (PCR) NEGATIVE (Negative) 01/09/21 Range/Units 19:54 WBC (4.8-10.8) X10*3/uL RBC (4.20-5.50) X10*6/uL Hgb (12.0-16.0) g/dl Hct (37-47) % MCV (80-98) fL MCH (27.0-33.0) pg MCHC (31.0-35.0) g/dl RDW (11.0-16.0) % Plt Count (160-400) X10*3/uL MPV (9.4-12.3) fL Immature Gran % (Auto) (0.0-0.4) % Neut % (Auto) (45-73) % Lymph % (Auto) (20-40) % Kemper % (Auto) (2-11) % Eos % (Auto) (0-4) % Baso % (Auto) (0-2) % Lymph # (Auto) (1.2-4.9) X10*3/uL Kemper # (Auto) (0.1-1.2) X10*3/uL Eos # (Auto) (0.0-0.4) X10*3/uL Baso # (Auto) (0.0-0.2) X10*3/uL Abs Immat Gran (auto) (0.00-0.03) X10*3/uL Absolute Neuts (auto) (2.0-8.3) X10*3/uL Absolute Nucleated RBC (0.0-0.012) X10*3/uL Nucleated RBC % (auto) (0.0-0.2) /100WBC PT (10.8-13.0) SEC INR (0.9-1.1) VBG pH 7.24 L (7.32-7.43) VBG pCO2 67 mmHg VBG pO2 67 mmHg VBG HCO3 29 H (22-26) mmol/L VBG O2 Saturation 83.0 % VBG Base Excess 0.6 mmol/L Sodium (135-145) mmol/L Potassium (3.3-5.1) mmol/L Chloride (96-108) mmol/L Carbon Dioxide (22-29) mmol/L Anion Gap (12-20) BUN (9-16) mg/dL Creatinine (0.5-1.4) mg/dL Estim Creat Clear Calc Estimated GFR Random Glucose (60-115) mg/dL Lactic Acid (0.5-2.0) mmol/L Calcium (8.4-10.2) mg/dL Total Bilirubin (0.0-1.0) mg/dL Direct Bilirubin (0.0-0.5) mg/dL AST (5-31) U/L ALT (0-31) U/L Alkaline Phosphatase (39-117) U/L Troponin I High Sens (<3.5-17.0) ng/L B-Natriuretic Peptide (<100) pg/mL Total Protein (6.5-8.0) g/dL Albumin (3.5-5.0) g/dL Coronavirus (PCR) (Negative) Influenza Type A (PCR) (Negative) Influenza Type B (PCR) (Negative) RSV RNA Qual (PCR) (Negative) Imaging Data Chest x-ray: Radiologist's impression: Again seen is cardiomegaly. There is upper zone redistribution consistent with elevated left ventricular end-diastolic pressure. There is prominence of the interstitium consistent with mild interstitial edema and small bilateral pleural effusions are present. Findings appear worse when compared to the prior exam. XR/XR chest 1V IMPRESSION: Cardiomegaly with CHF and mild interstitial edema with bilateral pleural effusions. ECG Data Attestation: I personally reviewed and interpreted this ECG as follows: (Normal sinus rhythm, heart rate 85, prolonged QT, QTC 485, no ST segment depression or elevation, no T-wave inversion) Discharge Plan Discharge Clinical Impression: Congestive heart failure Qualifiers: Heart failure type: unspecified Heart failure chronicity: acute on chronic Qualified Code(s): I50.9 - Heart failure, unspecified Patient Disposition: Admitted As Inpatient Interventions: Admission Worksheet (ED) Last Done: 01/10/21 00:01 Discharge Date/Time: 01/10/21 00:15
[2021-01-09] MEDS: Furosemide 40 MG/4 ML VIAL IVPUSH (19:41)
--- NOTE | 2021-01-09 19:41 | PC.NURSE ---
Multiple attempts to obtain blood draw-md informed. Lasix given through 20g in left finger by ems
--- NOTE | 2021-01-09 19:48 | PHA.MEDREC ---
Pharmacy Consult ? Medication Reconciliation Pharmacy has completed the medication reconciliation. Noticed that pt is both on lyrica and gabapentin, tripled checked with patient, pt states that she takes both
[2021-01-09 19:53] LABS: MANUAL DIFF FLAG NO
[2021-01-09 19:56] VITALS: PULSE 84; RESP 22; O2SAT 94
[2021-01-09 20:01] LABS: VBG Base Excess 0.6 mmol/L; VBG HCO3 29 mmol/L (22-26); VBG pCO2 67 mmHg; VBG pH 7.24 (7.32-7.43); VBG pO2 67 mmHg
[2021-01-09 20:03] LABS: Venous Blood Gas Refer to POC result
[2021-01-09 20:04] LABS: Prothrombin Time 11.5 SEC (10.8-13.0)
[2021-01-09 20:09] LABS: Basophils Percent Auto 0.2 % (0-2); Eosinophils Absolute Auto 0.1 X10*3/uL (0.0-0.4); Eosinophils Percent Auto 1.3 % (0-4); Hemoglobin 9.4 g/dl (12.0-16.0); Imm Gran Abs Auto 0.08 X10*3/uL (0.00-0.03); Lymphocytes Absolute Auto 0.8 X10*3/uL (1.2-4.9); Lymphocytes Percent Auto 9.9 % (20-40); Mean Corpuscular HGB Conc 27.6 g/dl (31.0-35.0); Mean Corpuscular Hemoglobin 25.4 pg (27.0-33.0); Mean Corpuscular Volume 91.9 fL (80-98); Mean Platelet Volume 10.4 fL (9.4-12.3); Monocytes Absolute Auto 0.5 X10*3/uL (0.1-1.2); Monocytes Percent Auto 6.2 % (2-11); Neutrophils Absolute Auto 6.7 X10*3/uL (2.0-8.3); Neutrophils Percent Auto 81.4 % (45-73); Platelet Count 178 X10*3/uL (160-400); Red Cell Distribution Width 17.1 % (11.0-16.0); White Blood Count 8.3 X10*3/uL (4.8-10.8)
[2021-01-09 20:16] LABS: Lactic Acid 0.9 mmol/L (0.5-2.0)
[2021-01-09 20:22] LABS: Alanine Aminotransferase 12 U/L (0-31); Alkaline Phosphatase 94 U/L (39-117); Anion Gap 12 (12-20); Aspartate Amino Transferase 11 U/L (5-31); Bilirubin Direct 0.2 mg/dL (0.0-0.5); Bilirubin Total 0.6 mg/dL (0.0-1.0); Blood Urea Nitrogen 63 mg/dL (9-16); Calcium 8.3 mg/dL (8.4-10.2); Carbon Dioxide 27 mmol/L (22-29); Chloride 110 mmol/L (96-108); Creatinine Clr Calc Pharmacy 66.3; Estimated Glomerular Filt Rate 44; Glucose Random 167 mg/dL (60-115); Potassium 5.4 mmol/L (3.3-5.1); Sodium 144 mmol/L (135-145); Total Protein 6.8 g/dL (6.5-8.0)
[2021-01-09 20:26] LABS: B Type Natriuretic Peptide 285 pg/mL (<100); Troponin-I High Sensitivity 6.4 ng/L (<3.5-17.0)
[2021-01-09 20:35] LABS: Influenza A PCR NEGATIVE (Negative); Influenza B PCR NEGATIVE (Negative); Resp Syncy Virus RNA Qual PCR NEGATIVE (Negative); SARS COV2 PCR INHOUSE NEGATIVE (Negative)
[2021-01-09 21:44] VITALS: BP 141/73; PULSE 81; RESP 18; TEMP 36.6; O2SAT 93
[2021-01-09] MEDS: Sodium Polystyrene Sulfon/Sorb 15 GM/60 ML ORAL.SUSP 30 GM PO (23:05)
--- NOTE | 2021-01-09 23:06 | PC.NURSE ---
Hospitalist at bedside.
--- NOTE | 2021-01-09 23:14 | PC.NURSE ---
pt is able to stand and pivot to commode
--- NOTE | 2021-01-09 23:27 | PM.IMHP ---
History of Present Illness Date of Service: 01/09/21 Chief Complaint: SOB 60-year-old female with a past medical history of hypertension, hyperlipidemia, diabetes, asthma/COPD, obesity hypoventilation syndrome, DANIEL, nonischemic cardiomyopathy; diabetic neuropathy, depression, chronic pain presented to the hospital with a chief complaint of shortness of breath. Patient mentioned that over the past 1 week she has been having shortness of breath which has been gradually worsening; also complains of dyspnea on exertion and orthopnea. Reports she has chest discomfort/tightness, intermittent in nature, no associated lightheadedness dizziness nausea vomiting or sweating. Complains of throat discomfort; reports she has not been eating good. 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 Reports her breathing is getting better. RN give the patient Kayexalate while interviewing and patient swallowed without any difficulty. Denies any nausea vomiting diarrhea. Denies any urinary symptoms presently. Review of all other systems is negative except mentioned above ER course: Per ER team patient noted to have crackles, peripheral edema; proBNP 285-but patient is obese; potassium of 5.4-given Kayexalate; EKG nonischemic.; patient received Lasix in the ER. Admitted to the hospital for further management. ON LICENSE OF [facility] Medical History Asthma delivery delivered Chronic pain Depression Diabetes Diabetic neuropathy, painful High cholesterol Hypertension Morbid obesity NICM (nonischemic cardiomyopathy) Obesity hypoventilation syndrome DANIEL (obstructive sleep apnea) Surgical History Hx of cholecystectomy Social History Household Members: Other Household Members Other:: GRANDSON Housing: Apartment Housing Other:: [facility] Do you presently have visiting nurse or other home services: Yes Alcohol intake: never Patient Tobacco Use Status: Former Tobacco user Tobacco use type: Cigarette Years Smoked: 38 Smoked in Last 30 Days: No Second Hand Smoke Exposure: No Use of substances other than those prescribed or required for medical reasons: No Substance Use Type: Marijuana Currently Displaying Signs/Symptoms of Drug Intoxication Withdrawal: No Have you been hit, kicked, punched, or otherwise hurt by someone within the past year? If so, by whom?: No Do you feel safe in your current relationship?: No Current Relationship Is there a partner from a previous relationship who is making you feel unsafe now?: No Are you made to feel afraid or neglected: No Advance Directives: No Advance Directives Information Provided: Yes Do you have thoughts of harming others: None Do you have a plan to hurt others: No Plan Recently lost weight without trying: No Nutrition Risks: No Nutritional Risk service: No Current occupational status: disabled Meds Allergies Allergy/AdvReac Type Severity Reaction Status Date / Time No Known Allergies Allergy Unverified 12/11/20 10:41 acetaminophen [Tylenol] AdvReac Unknown vommiting, Verified 11/22/20 21:28 itching ibuprofen AdvReac Unknown vommiting, Verified 11/22/20 21:28 itching morphine AdvReac Unknown vomiting Verified 11/22/20 21:28 Motrin Allergy Unknown itching Uncoded 09/21/19 00:00 Active Medications: Current Medications Generic Name Dose Route Start Last Admin Trade Name Freq PRN Reason Stop Dose Admin Acetaminophen 650 mg 01/09/21 23:18 Acetaminophen 325 Mg Tablet PO Q6H PRN Pain, Mild (Pain Scale 1-3) Albuterol Sulfate 2 puff 01/09/21 23:23 Albuterol Sulfate 90 Mcg 8 Gm Inhaler INHALE Q4H PRN Dyspnea Albuterol/Ipratropium 3 ml 01/09/21 23:18 Albuterol/Iprat 2.5/0.5mg 3 Ml Ampul.Neb INHALE RQ4H WHILE AWAKE PRN Shortness of Breath/Wheezing Amlodipine Besylate 10 mg 01/10/21 09:00 Amlodipine Besylate 10 Mg Tablet PO DAILY [facility] Protocol Aspirin 81 mg 01/10/21 09:00 Aspirin Enteric Coated 81 Mg Tablet.Dr PO DAILY [facility] Dextrose 25 gm 01/09/21 23:24 Dextrose 50 % 25 Gm/50 Ml Vial IVPUSH ONCE PRN hypoglucemia Enoxaparin Sodium 40 mg 01/09/21 23:30 Enoxaparin Sodium 40 Mg/0.4 Ml Syringe SUBCUT Q24H [facility] Fluoxetine HCl 40 mg 01/10/21 09:00 Fluoxetine Hcl 20 Mg Capsule PO DAILY [facility] Furosemide 40 mg 01/10/21 09:00 Furosemide 40 Mg/4 Ml Vial IVPUSH DAILY [facility] Protocol Gabapentin 400 mg 01/10/21 09:00 Gabapentin 400 Mg Capsule PO TID [facility] Insulin Glargine 40 unit 01/10/21 21:00 Insulin Glargine,Hum.Rec.Anlog 100 Unit/Ml 10 Ml Vial SUBCUT BEDTIME [facility] Insulin Human Lispro 0 unit 01/10/21 07:30 Insulin Lispro 100 Unit/Ml 3 Ml Vial SUBCUT 01/10/21 23:22 QIDACHS [facility] Protocol Insulin Human Lispro 0 unit 01/10/21 07:30 Insulin Lispro 100 Unit/Ml 3 Ml [facility] Protocol Isosorbide Mononitrate 30 mg 01/10/21 09:00 Isosorbide Mononitrate 30 Mg Tab.Er.24h PO DAILY [facility] Protocol Metoprolol Succinate 50 mg 01/10/21 09:00 Metoprolol Succinate Er 50 Mg Tab.Er.24h PO DAILY [facility] Protocol Nitroglycerin 0.4 mg 01/09/21 23:18 Nitroglycerin 0.4 Mg Tab.Subl SUBLINGUAL Q5M PRN Chest Pain Non-Formulary Medication 20 mg 01/10/21 21:00 Simvastatin PO BEDTIME [facility] Omeprazole 20 mg 01/10/21 21:00 Omeprazole 20 Mg Capsule. PO BEDTIME [facility] Pharmacy Consult 1 each 01/09/21 19:16 Consult Rx Perform Med Rec MISCELLANE ONCE PRN Consult order Pregabalin 100 mg 01/10/21 09:00 Pregabalin 100 Mg Capsule PO BID [facility] Sodium Chloride 3 ml 01/10/21 00:00 0.9 % Sodium Chloride Flush 3 Ml Syringe IVFLUSH QSHIFT [facility] Tizanidine HCl 4 mg 01/10/21 21:00 Tizanidine Hcl 4 Mg Tablet PO BEDTIME [facility] Vitamin D 50 mcg 01/10/21 09:00 Cholecalciferol (Vitamin D3) 25 Mcg Tablet PO DAILY [facility] Home Medications Medication Instructions Recorded Confirmed Last Taken Type Flovent HFA 2 puff INHALATION BID 11/23/20 01/09/21 12/11/20 History Lantus U-100 Insulin 80 unit SUBCUT BEDTIME 11/23/20 01/09/21 12/10/20 History albuterol sulfate [ProAir HFA] 2 puff INHALATION Q4H PRN 11/23/20 01/09/21 12/11/20 History amlodipine 10 mg PO DAILY 11/23/20 01/09/21 12/11/20 History aspirin 81 mg PO DAILY 11/23/20 01/09/21 12/11/20 History fluoxetine 40 mg PO DAILY 11/23/20 01/09/21 12/11/20 History insulin lispro [Humalog U-100 See Rx Instructions .ROUTE .COMPLEX 11/23/20 01/09/21 11/22/20 History Insulin] metoprolol succinate 50 mg PO DAILY 11/23/20 01/09/21 12/11/20 History omeprazole 20 mg PO BEDTIME 11/23/20 01/09/21 12/10/20 History simvastatin 20 mg PO BEDTIME 11/23/20 01/09/21 12/10/20 History cholecalciferol (vitamin D3) 50 mcg PO DAILY 12/11/20 01/09/21 12/11/20 History isosorbide mononitrate 30 mg PO DAILY 12/11/20 01/09/21 12/11/20 History tizanidine 4 mg PO BEDTIME 12/11/20 01/09/21 12/10/20 History furosemide 20 mg PO QPM 01/09/21 01/09/21 Unknown History furosemide 40 mg PO DAILY 01/09/21 01/09/21 Unknown History gabapentin 1 cap PO TID 01/09/21 01/09/21 Unknown History Physical Exam Vital Signs and Narrative: Vital Signs: Last Vital Signs Temp 97.9 F 01/09/21 21:44 Pulse 81 01/09/21 21:44 Resp 18 01/09/21 21:44 BP 141/73 H 01/09/21 21:44 Pulse Ox 93 01/09/21 21:44 Oxygen Flow Rate 2 01/09/21 18:53 Body Mass Index 56.3 Gen: Appears be in no acute distress ; speaks in full sentences HEENT: NCAT, Moist mucosa. Unable to assess the hypopharynx given high Mallampati score. No stridor Pulmonary: Slightly diminished; fine crackles CVS: Normal S1-S2 Abdomen: BS+, Soft, Nontender Extremities: Warm well perfused; peripheral edema present. Chronic b/l leg swelling. Neuro: Alert and awake. Results Labs CBC and Chem 7: 01/10/21 05:38 01/12/21 05:56 Labs: Laboratory Results - last 24 hr 01/09/21 01/09/21 01/09/21 19:45 19:45 19:46 MCV 91.9 MCH 25.4 L MCHC 27.6 L RDW 17.1 H Plt Count 178 MPV 10.4 Immature Gran % (Auto) 1.0 H Neut % (Auto) 81.4 H Lymph % (Auto) 9.9 L [place] % (Auto) 6.2 Eos % (Auto) 1.3 Baso % (Auto) 0.2 Lymph # (Auto) 0.8 L [place] # (Auto) 0.5 Eos # (Auto) 0.1 Baso # (Auto) 0.0 Abs Immat Gran (auto) 0.08 H Absolute Neuts (auto) 6.7 Absolute Nucleated RBC 0.000 Nucleated RBC % (auto) 0.0 PT 11.5 INR 1.0 VBG pH VBG pCO2 VBG pO2 VBG HCO3 VBG O2 Saturation VBG Base Excess Anion Gap Estim Creat Clear Calc Estimated GFR Random Glucose Lactic Acid 0.9 Calcium Total Bilirubin Direct Bilirubin AST ALT Alkaline Phosphatase Troponin I High Sens B-Natriuretic Peptide Total Protein Albumin Coronavirus (PCR) Influenza Type A (PCR) Influenza Type B (PCR) RSV RNA Qual (PCR) 01/09/21 01/09/21 01/09/21 19:46 19:46 19:46 MCV MCH MCHC RDW Plt Count MPV Immature Gran % (Auto) Neut % (Auto) Lymph % (Auto) [place] % (Auto) Eos % (Auto) Baso % (Auto) Lymph # (Auto) [place] # (Auto) Eos # (Auto) Baso # (Auto) Abs Immat Gran (auto) Absolute Neuts (auto) Absolute Nucleated RBC Nucleated RBC % (auto) PT INR VBG pH VBG pCO2 VBG pO2 VBG HCO3 VBG O2 Saturation VBG Base Excess Anion Gap 12 Estim Creat Clear Calc 66.3 Estimated GFR 44 Random Glucose 167 H Lactic Acid Calcium 8.3 L Total Bilirubin 0.6 Direct Bilirubin 0.2 AST 11 ALT 12 Alkaline Phosphatase 94 Troponin I High Sens 6.4 B-Natriuretic Peptide 285 H Total Protein 6.8 Albumin 4.0 Coronavirus (PCR) NEGATIVE Influenza Type A (PCR) NEGATIVE Influenza Type B (PCR) NEGATIVE RSV RNA Qual (PCR) NEGATIVE 01/09/21 19:54 MCV MCH MCHC RDW Plt Count MPV Immature Gran % (Auto) Neut % (Auto) Lymph % (Auto) [place] % (Auto) Eos % (Auto) Baso % (Auto) Lymph # (Auto) [place] # (Auto) Eos # (Auto) Baso # (Auto) Abs Immat Gran (auto) Absolute Neuts (auto) Absolute Nucleated RBC Nucleated RBC % (auto) PT INR VBG pH 7.24 L VBG pCO2 67 VBG pO2 67 VBG HCO3 29 H VBG O2 Saturation 83.0 VBG Base Excess 0.6 Anion Gap Estim Creat Clear Calc Estimated GFR Random Glucose Lactic Acid Calcium Total Bilirubin Direct Bilirubin AST ALT Alkaline Phosphatase Troponin I High Sens B-Natriuretic Peptide Total Protein Albumin Coronavirus (PCR) Influenza Type A (PCR) Influenza Type B (PCR) RSV RNA Qual (PCR) Imaging Radiologist's Impressions: Impressions Chest X-Ray 01/09/21 19:16 IMPRESSION: Cardiomegaly with CHF and mild interstitial edema with bilateral pleural effusions. Assessment and Plan (1) Congestive heart failure: Qualifiers: Heart failure chronicity: acute on chronic Heart failure type: unspecified Qualified Code(s): I50.9 - Heart failure, unspecified Status: Acute 60-year-old female with a past medical history of hypertension, hyperlipidemia, diabetes, diabetic neuropathy, CHF, chronic pain, DANIEL, obesity hypoventilation syndrome, asthma presented to the hospital with multiple complaints including shortness of breath, throat discomfort. Noted to be in mild CHF exacerbation. Admitted for further management. Shortness of breath: Multifactorial. Patient has history of obesity hypoventilation/DANIEL/CHF. Currently not in respiratory distress. Speaks in full sentences. DuoNebs p.r.n.. No wheezing noticed. Mild CHF exacerbation: Echocardiogram from November of 2020 showed EF of 40-45%; grade 1 diastolic dysfunction. No obvious signs of infection. Patient denies any urinary symptoms. Chest x-ray showed no evidence of pneumonia Daily weights and I's and O's. Give the patient on Lasix 40 mg IV. Cardiology consult. Continue home Imdur, Toprol, statin. Patient not on lisinopril-unclear reason. Will defer to Cardiology for further recommendations. Chest discomfort: Atypical in nature. EKG nonischemic. Troponin negative. Telemetry. Cycle cardiac enzymes. Sublingual nitroglycerin p.r.n.. Hyperkalemia: Given Kayexalate. Throat discomfort: Exam limited secondary to high Mallampati score. Speech and swallow eval. Will continue to monitor. Hypertension/hyperlipidemia: Continue home statin, metoprolol, amlodipine Diabetes: Will keep the patient on Lantus 40 units plus insulin sliding scale. Patient takes Lantus 80 units at home. Asthma: Nebulizations p.r.n. Depression: Continue home fluoxetine DVT prophylaxis: Lovenox Code status: Full code Quality Stroke Does the patient have a stroke diagnosis?: No VTE Prior VTE?: No VTE Risk Level:: Medical - moderate - high VTE Device Contraindication: N/A - Device Ordered VTE Drug Contraindication: N/A - Med Ordered
--- NOTE | 2021-01-09 23:49 | PC.NURSE ---
attempted to give report. no answer from rn.
[2021-01-10] VITALS (11 sets, daily range): BP systolic 118–149; BP diastolic 58–91; PULSE 70–105; RESP 16–22; TEMP 36.3–36.9; O2SAT 79–96; BMI 53.9
[2021-01-10 00:34] LABS: Troponin-I High Sensitivity 10.6 ng/L (<3.5-17.0)
[2021-01-10] MEDS: Enoxaparin Sodium 40 MG/0.4 ML SYRINGE SUBCUT ×2 (00:51→22:33)
[2021-01-10] MEDS: 0.9 % Sodium Chloride Flush 3 ML SYRINGE IVFLUSH ×4 (00:53→20:30)
[2021-01-10 06:04] LABS: MANUAL DIFF FLAG NO
[2021-01-10 06:09] LABS: Basophils Percent Auto 0.1 % (0-2); Eosinophils Absolute Auto 0.2 X10*3/uL (0.0-0.4); Eosinophils Percent Auto 2.1 % (0-4); Hemoglobin 9.5 g/dl (12.0-16.0); Imm Gran Abs Auto 0.07 X10*3/uL (0.00-0.03); Imm Gran Pct Auto 0.8 % (0.0-0.4); Lymphocytes Absolute Auto 1.1 X10*3/uL (1.2-4.9); Lymphocytes Percent Auto 12.4 % (20-40); Mean Corpuscular HGB Conc 28.8 g/dl (31.0-35.0); Mean Corpuscular Hemoglobin 25.8 pg (27.0-33.0); Mean Corpuscular Volume 89.7 fL (80-98); Monocytes Absolute Auto 0.8 X10*3/uL (0.1-1.2); Monocytes Percent Auto 8.8 % (2-11); Neutrophils Absolute Auto 6.9 X10*3/uL (2.0-8.3); Neutrophils Percent Auto 75.8 % (45-73); Platelet Count 167 X10*3/uL (160-400); Red Blood Count 3.68 X10*6/uL (4.20-5.50); Red Cell Distribution Width 17.1 % (11.0-16.0); White Blood Count 9.1 X10*3/uL (4.8-10.8)
[2021-01-10] MEDS: Albuterol/Iprat 2.5/0.5MG 3 ML AMPUL.NEB INHALE (06:29)
[2021-01-10 06:35] LABS: Anion Gap 11 (12-20); Blood Urea Nitrogen 56 mg/dL (9-16); Calcium 8.1 mg/dL (8.4-10.2); Carbon Dioxide 28 mmol/L (22-29); Chloride 112 mmol/L (96-108); Creatinine Clr Calc Pharmacy 68.9; Estimated Glomerular Filt Rate 48; Glucose Random 152 mg/dL (60-115); Potassium 4.8 mmol/L (3.3-5.1); Sodium 146 mmol/L (135-145)
[2021-01-10 07:15] LABS: Glucose, Whole Blood 156 mg/dL (60-115)
[2021-01-10] MEDS: Insulin Lispro 100 UNIT/ML 3 ML VIAL SUBCUT ×4 (07:55→20:30)
[2021-01-10] MEDS: Pregabalin 100 MG CAPSULE PO (08:26)
[2021-01-10] MEDS: Gabapentin 400 MG CAPSULE PO ×3 (08:26→20:29)
[2021-01-10] MEDS: Furosemide 40 MG/4 ML VIAL IVPUSH (08:26)
[2021-01-10] MEDS: Isosorbide Mononitrate 30 MG TAB.ER.24H PO (08:26)
[2021-01-10] MEDS: Metoprolol Succinate ER 50 MG TAB.ER.24H PO (08:27)
[2021-01-10] MEDS: amLODIPine Besylate 10 MG TABLET PO (08:27)
[2021-01-10] MEDS: FLUoxetine HCl 20 MG CAPSULE 40 MG PO (08:27)
[2021-01-10] MEDS: Cholecalciferol (Vitamin D3) 25 MCG TABLET 50 MCG PO (08:29)
[2021-01-10] MEDS: Aspirin Enteric Coated 81 MG TABLET.DR PO (08:39)
[2021-01-10 09:22] LABS: Troponin-I High Sensitivity 10.8 ng/L (<3.5-17.0)
[2021-01-10 11:02] LABS: Glucose, Whole Blood 163 mg/dL (60-115)
--- NOTE | 2021-01-10 11:20 | MHC.CM.PN ---
met with pt who is working on gettin g her daughter as a vac press operator she has her 9 year old grandson who stays with her sometimes whe n mother is working hcp filed and placed on chart pt reports having a vna for pt and ot she does not remember the agency name
--- NOTE | 2021-01-10 11:50 | MHC.CM.PN ---
pt will have a pt eval ?needing str referrals made
--- NOTE | 2021-01-10 11:58 | MHC.SL.SWA ---
Speech Pathologist Impression: Within Functional Limits Dysphasia Diet Status: No Change Liquid Consistency and Strategies for Safe Swallow: Liquid Intake Recommendation: Thin Liquid Intake Strategies: Unrestricted Solid Food Consistency: Dietary Recommendations: Regular Oral Medication Intake: Whole with Liquid Compensatory Strategies and Precautions to be Taken for Safe Swallow: Sitting Upright (90 deg) Small Bites and Sips Supervision While Eating and Drinking for Safe Swallow: None Needed Recommendation for Speech: NA:Typical Evaluation Comment: Patient passed bedside dysphagia evaluation. No overt s/s of aspiration. Medical Lab Technologist Clinican/Clinical Fellow: No Supervisory Statement: I have reviewed and agree with the student/clinical fellow's documentation: N/A Speech Language Pathologist: Rupali Petersen M.A., CCC-SENIOR CIVIL ENGINEER
--- NOTE | 2021-01-10 12:28 | P.CONCA_ITS ---
History of Present Illness History of Present Illness Date of Service: 01/10/21 Requesting physician: Heather Menchaca Chief complaint: Congestive heart failure Narrative: 60-year-old female with background history of morbid obesity, diastolic heart failure, nonischemic cardiomyopathy with last ejection fraction of 50-55%, obstructive sleep apnea diabetes and hypertension who is presenting for shortness of breath and weight gain. She has stopped using her Lasix many weeks ago because she was peeing too much. She progressively gained weight and became short of breath. She is significantly volume overloaded right now. Denying any chest pain otherwise. She has abdominal distension lower extremity edema. [facility] Past Medical History Medical History Asthma delivery delivered Chronic pain Depression Diabetes Diabetic neuropathy, painful High cholesterol Hypertension Morbid obesity NICM (nonischemic cardiomyopathy) Obesity hypoventilation syndrome DANIEL (obstructive sleep apnea) Surgical History Surgical History Hx of cholecystectomy Social History Social History Household Members: Other Household Members Other:: GRANDSON Housing: Apartment Housing Other:: [facility] Do you presently have visiting nurse or other home services: Yes Alcohol intake: never Patient Tobacco Use Status: Former Tobacco user Tobacco use type: Cigarette Years Smoked: 38 Smoked in Last 30 Days: No Second Hand Smoke Exposure: No Use of substances other than those prescribed or required for medical reasons: No Substance Use Type: Marijuana Have you been hit, kicked, punched, or otherwise hurt by someone within the past year? If so, by whom?: No Do you feel safe in your current relationship?: No Current Relationship Is there a partner from a previous relationship who is making you feel unsafe now?: No Are you made to feel afraid or neglected: No Advance Directives: No Advance Directives Information Provided: Yes Do you have thoughts of harming others: None Do you have a plan to hurt others: No Plan Recently lost weight without trying: No Nutrition Risks: No Nutritional Risk service: No Current occupational status: disabled Meds Allergies Allergy/AdvReac Type Severity Reaction Status Date / Time No Known Allergies Allergy Unverified 12/11/20 10:41 acetaminophen [Tylenol] AdvReac Unknown vommiting, Verified 11/22/20 21:28 itching ibuprofen AdvReac Unknown vommiting, Verified 11/22/20 21:28 itching morphine AdvReac Unknown vomiting Verified 11/22/20 21:28 Motrin Allergy Unknown itching Uncoded 09/21/19 00:00 Active Medications: Current Medications Generic Name Dose Route Start Last Admin Trade Name Trungq PRN Reason Stop Dose Admin Acetaminophen 650 mg 01/09/21 23:18 Acetaminophen 325 Mg Tablet PO Q6H PRN Pain, Mild (Pain Scale 1-3) Albuterol Sulfate 2 puff 01/09/21 23:23 Albuterol Sulfate 90 Mcg 8 Gm Inhaler INHALE Q4H PRN Dyspnea Albuterol/Ipratropium 3 ml 01/09/21 23:18 01/10/21 06:29 Albuterol/Iprat 2.5/0.5mg 3 Ml Ampul.Neb INHALE 3 ml RQ4H WHILE AWAKE PRN Administration Shortness of Breath/Wheezing Amlodipine Besylate 10 mg 01/10/21 09:00 01/10/21 08:27 Amlodipine Besylate 10 Mg Tablet PO 10 mg DAILY HI Administration Protocol Aspirin 81 mg 01/10/21 09:00 01/10/21 08:39 Aspirin Enteric Coated 81 Mg Tablet.Dr PO 81 mg DAILY HI Administration Atorvastatin Calcium 10 mg 01/10/21 21:00 Atorvastatin Calcium 10 Mg Tablet PO BEDTIME HI Dextrose 25 gm 01/09/21 23:24 Dextrose 50 % 25 Gm/50 Ml Vial IVPUSH ONCE PRN hypoglucemia Enoxaparin Sodium 40 mg 01/09/21 23:30 01/10/21 00:51 Enoxaparin Sodium 40 Mg/0.4 Ml Syringe SUBCUT 40 mg Q24H HI Administration Fluoxetine HCl 40 mg 01/10/21 09:00 01/10/21 08:27 Fluoxetine Hcl 20 Mg Capsule PO 40 mg DAILY HI Administration Furosemide 80 mg 01/10/21 15:00 Furosemide 40 Mg/4 Ml Vial IVPUSH DAILY [facility] Protocol Gabapentin 400 mg 01/10/21 09:00 01/10/21 08:26 Gabapentin 400 Mg Capsule PO 400 mg TID HI Administration Insulin Glargine 40 unit 01/10/21 21:00 Insulin Glargine,Hum.Rec.Anlog 100 Unit/Ml 10 Ml Vial SUBCUT BEDTIME [facility] Insulin Human Lispro 0 - 12 unit 01/10/21 07:30 01/10/21 11:53 Insulin Lispro 100 Unit/Ml 3 Ml Vial SUBCUT 01/10/21 23:22 4 unit QIDACHS [facility] Administration Protocol Isosorbide Mononitrate 30 mg 01/10/21 09:00 01/10/21 08:26 Isosorbide Mononitrate 30 Mg Tab.Er.24h PO 30 mg DAILY [facility] Administration Protocol Metoprolol Succinate 50 mg 01/10/21 09:00 01/10/21 08:27 Metoprolol Succinate Er 50 Mg Tab.Er.24h PO 50 mg DAILY [facility] Administration Protocol Nitroglycerin 0.4 mg 01/09/21 23:18 Nitroglycerin 0.4 Mg Tab.Subl SUBLINGUAL Q5M PRN Chest Pain Omeprazole 20 mg 01/10/21 21:00 Omeprazole 20 Mg Capsule. PO BEDTIME [facility] Pharmacy Consult 1 each 01/09/21 19:16 Consult Rx Perform Med Rec MISCELLANE ONCE PRN Consult order Pregabalin 100 mg 01/10/21 09:00 01/10/21 08:26 Pregabalin 100 Mg Capsule PO 100 mg BID [facility] Administration Sodium Chloride 3 ml 01/10/21 00:00 01/10/21 07:56 0.9 % Sodium Chloride Flush 3 Ml Syringe IVFLUSH 3 ml QSHIFT [facility] Administration Tizanidine HCl 4 mg 01/10/21 21:00 Tizanidine Hcl 4 Mg Tablet PO BEDTIME [facility] Vitamin D 50 mcg 01/10/21 09:00 01/10/21 08:29 Cholecalciferol (Vitamin D3) 25 Mcg Tablet PO 50 mcg DAILY [facility] Administration Home Medications Medication Instructions Recorded Confirmed Last Taken Type Flovent HFA 2 puff INHALATION BID 11/23/20 01/09/21 12/11/20 History Lantus U-100 Insulin 80 unit SUBCUT BEDTIME 11/23/20 01/09/21 12/10/20 History albuterol sulfate [ProAir HFA] 2 puff INHALATION Q4H PRN 11/23/20 01/09/21 12/11/20 History amlodipine 10 mg PO DAILY 11/23/20 01/09/21 12/11/20 History aspirin 81 mg PO DAILY 11/23/20 01/09/21 12/11/20 History fluoxetine 40 mg PO DAILY 11/23/20 01/09/21 12/11/20 History insulin lispro [Humalog U-100 See Rx Instructions .ROUTE .COMPLEX 11/23/20 01/09/21 11/22/20 History Insulin] metoprolol succinate 50 mg PO DAILY 11/23/20 01/09/21 12/11/20 History omeprazole 20 mg PO BEDTIME 11/23/20 01/09/21 12/10/20 History simvastatin 20 mg PO BEDTIME 11/23/20 01/09/21 12/10/20 History cholecalciferol (vitamin D3) 50 mcg PO DAILY 12/11/20 01/09/21 12/11/20 History isosorbide mononitrate 30 mg PO DAILY 12/11/20 01/09/21 12/11/20 History tizanidine 4 mg PO BEDTIME 12/11/20 01/09/21 12/10/20 History furosemide 20 mg PO QPM 01/09/21 01/09/21 Unknown History furosemide 40 mg PO DAILY 01/09/21 01/09/21 Unknown History gabapentin 1 cap PO TID 01/09/21 01/09/21 Unknown History Physical Exam Vital Signs: Vital Signs: Last Vital Signs Temp 97.9 F 01/10/21 11:17 Pulse 90 01/10/21 11:17 Resp 19 01/10/21 11:17 BP 142/70 H 01/10/21 11:17 Pulse Ox 96 01/10/21 11:17 Oxygen Flow Rate 2 01/09/21 18:53 Body Mass Index 53.9 GENERAL APPEARANCE: Short of breath. NECK: no carotid bruit, + jugular venous distention. SKIN: no suspicious lesions, warm and dry. HEART: no murmurs, regular rate and rhythm. LUNGS: Bilateral crackles. ABDOMEN: soft, nontender. Distended. EXTREMITIES: 1 to 2+ edema. PERIPHERAL PULSES: equal. NEUROLOGIC: No gross deficits, AAO X 3 Results Labs and Meds Result diagrams: 01/10/21 05:38 01/10/21 05:38 Lab results: Laboratory Results - last 24 hr 01/09/21 01/09/21 01/09/21 19:45 19:45 19:46 WBC 8.3 RBC 3.70 L Hgb 9.4 L Hct 34.0 L MCV 91.9 MCH 25.4 L MCHC 27.6 L RDW 17.1 H Plt Count 178 MPV 10.4 Immature Gran % (Auto) 1.0 H Neut % (Auto) 81.4 H Lymph % (Auto) 9.9 L [place] % (Auto) 6.2 Eos % (Auto) 1.3 Baso % (Auto) 0.2 Lymph # (Auto) 0.8 L [place] # (Auto) 0.5 Eos # (Auto) 0.1 Baso # (Auto) 0.0 Abs Immat Gran (auto) 0.08 H Absolute Neuts (auto) 6.7 Absolute Nucleated RBC 0.000 Nucleated RBC % (auto) 0.0 PT 11.5 INR 1.0 VBG pH VBG pCO2 VBG pO2 VBG HCO3 VBG O2 Saturation VBG Base Excess Sodium Potassium Chloride Carbon Dioxide Anion Gap BUN Creatinine Estim Creat Clear Calc Estimated GFR POC Glucose Random Glucose Lactic Acid 0.9 Calcium Total Bilirubin Direct Bilirubin AST ALT Alkaline Phosphatase Troponin I High Sens B-Natriuretic Peptide Total Protein Albumin Coronavirus (PCR) Influenza Type A (PCR) Influenza Type B (PCR) RSV RNA Qual (PCR) 01/09/21 01/09/21 01/09/21 19:46 19:46 19:46 WBC RBC Hgb Hct MCV MCH MCHC RDW Plt Count MPV Immature Gran % (Auto) Neut % (Auto) Lymph % (Auto) [place] % (Auto) Eos % (Auto) Baso % (Auto) Lymph # (Auto) [place] # (Auto) Eos # (Auto) Baso # (Auto) Abs Immat Gran (auto) Absolute Neuts (auto) Absolute Nucleated RBC Nucleated RBC % (auto) PT INR VBG pH VBG pCO2 VBG pO2 VBG HCO3 VBG O2 Saturation VBG Base Excess Sodium 144 Potassium 5.4 H D Chloride 110 H Carbon Dioxide 27 Anion Gap 12 BUN 63 H D Creatinine 1.24 Estim Creat Clear Calc 66.3 Estimated GFR 44 POC Glucose Random Glucose 167 H Lactic Acid Calcium 8.3 L Total Bilirubin 0.6 Direct Bilirubin 0.2 AST 11 ALT 12 Alkaline Phosphatase 94 Troponin I High Sens 6.4 B-Natriuretic Peptide 285 H Total Protein 6.8 Albumin 4.0 Coronavirus (PCR) NEGATIVE Influenza Type A (PCR) NEGATIVE Influenza Type B (PCR) NEGATIVE RSV RNA Qual (PCR) NEGATIVE 01/09/21 01/09/21 01/10/21 19:54 23:40 05:38 WBC 9.1 RBC 3.68 L Hgb 9.5 L Hct 33.0 L MCV 89.7 MCH 25.8 L MCHC 28.8 L RDW 17.1 H Plt Count 167 MPV 10.0 Immature Gran % (Auto) 0.8 H Neut % (Auto) 75.8 H Lymph % (Auto) 12.4 L [place] % (Auto) 8.8 Eos % (Auto) 2.1 Baso % (Auto) 0.1 Lymph # (Auto) 1.1 L [place] # (Auto) 0.8 Eos # (Auto) 0.2 Baso # (Auto) 0.0 Abs Immat Gran (auto) 0.07 H Absolute Neuts (auto) 6.9 Absolute Nucleated RBC 0.000 Nucleated RBC % (auto) 0.0 PT INR VBG pH 7.24 L VBG pCO2 67 VBG pO2 67 VBG HCO3 29 H VBG O2 Saturation 83.0 VBG Base Excess 0.6 Sodium Potassium Chloride Carbon Dioxide Anion Gap BUN Creatinine Estim Creat Clear Calc Estimated GFR POC Glucose Random Glucose Lactic Acid Calcium Total Bilirubin Direct Bilirubin AST ALT Alkaline Phosphatase Troponin I High Sens 10.6 D B-Natriuretic Peptide Total Protein Albumin Coronavirus (PCR) Influenza Type A (PCR) Influenza Type B (PCR) RSV RNA Qual (PCR) 01/10/21 01/10/21 01/10/21 05:38 07:07 08:29 WBC RBC Hgb Hct MCV MCH MCHC RDW Plt Count MPV Immature Gran % (Auto) Neut % (Auto) Lymph % (Auto) [place] % (Auto) Eos % (Auto) Baso % (Auto) Lymph # (Auto) [place] # (Auto) Eos # (Auto) Baso # (Auto) Abs Immat Gran (auto) Absolute Neuts (auto) Absolute Nucleated RBC Nucleated RBC % (auto) PT INR VBG pH VBG pCO2 VBG pO2 VBG HCO3 VBG O2 Saturation VBG Base Excess Sodium 146 H Potassium 4.8 Chloride 112 H Carbon Dioxide 28 Anion Gap 11 L BUN 56 H Creatinine 1.16 Estim Creat Clear Calc 68.9 Estimated GFR 48 POC Glucose 156 H Random Glucose 152 H Lactic Acid Calcium 8.1 L Total Bilirubin Direct Bilirubin AST ALT Alkaline Phosphatase Troponin I High Sens 10.8 B-Natriuretic Peptide Total Protein Albumin Coronavirus (PCR) Influenza Type A (PCR) Influenza Type B (PCR) RSV RNA Qual (PCR) 01/10/21 10:56 WBC RBC Hgb Hct MCV MCH MCHC RDW Plt Count MPV Immature Gran % (Auto) Neut % (Auto) Lymph % (Auto) [place] % (Auto) Eos % (Auto) Baso % (Auto) Lymph # (Auto) [place] # (Auto) Eos # (Auto) Baso # (Auto) Abs Immat Gran (auto) Absolute Neuts (auto) Absolute Nucleated RBC Nucleated RBC % (auto) PT INR VBG pH VBG pCO2 VBG pO2 VBG HCO3 VBG O2 Saturation VBG Base Excess Sodium Potassium Chloride Carbon Dioxide Anion Gap BUN Creatinine Estim Creat Clear Calc Estimated GFR POC Glucose 163 H Random Glucose Lactic Acid Calcium Total Bilirubin Direct Bilirubin AST ALT Alkaline Phosphatase Troponin I High Sens B-Natriuretic Peptide Total Protein Albumin Coronavirus (PCR) Influenza Type A (PCR) Influenza Type B (PCR) RSV RNA Qual (PCR) Imaging Radiologist's impression: Impressions Chest X-Ray 01/09/21 19:16 IMPRESSION: Cardiomegaly with CHF and mild interstitial edema with bilateral pleural effusions. Assessment and Plan (1) Acute on chronic congestive heart failure: Status: Acute 60-year-old female with background of congestive heart failure presenting with shortness of breath and volume overload in the setting of stopping her diuretics. Clinically significant volume overloaded. She takes 40 of Lasix at home. She was given 40 mg IV Lasix here. I think she needs to be an 80 mg IV b.i.d. Lasix at this stage. She has significant volume overload right now. Monitor electrolytes and kidney function closely. Monitor I's and O's closely. She should have daily standing weights in the morning. Thank you for allowing me to participate in the care of your patient. Please feel free to contact me if you have any questions. Procedures Date of Service Date of Service: 01/10/21
[2021-01-10] MEDS: Furosemide 40 MG/4 ML VIAL 80 MG IVPUSH (15:48)
[2021-01-10 16:05] LABS: Glucose, Whole Blood 171 mg/dL (60-115)
--- NOTE | 2021-01-10 16:07 | HO.PM.IMPN ---
Subjective Subjective Date of Service: 01/10/21 Interval History: Dyspnea + chest discomfort improved. Weight is up 17kg since 12/18 Per bridal consultant, pt has not been adherent with furosemide lately [to me, she denied nonadherence] Physical Exam Vital Signs: Vital Signs: Last Vital Signs Temp 98.2 F 01/10/21 15:11 Pulse 86 01/10/21 15:11 Resp 16 01/10/21 15:11 BP 140/71 H 01/10/21 15:11 Pulse Ox 79 L 01/10/21 15:11 Oxygen Flow Rate 2 01/09/21 18:53 Body Mass Index 53.9 Gen: in no acute distress HEENT: sclera anicteric, moist mucus membranes Neck: supple Lungs: wet inspiratory crackles at bilateral bases Heart: regular rate and rhythm, JVD present Abd:morbidly obese, soft, non-tender, non-distended Ext: 2+ BLE edema Skin: warm/well-perfused Neuro: alert and oriented x3, no focal findings Psych: appropriate affect Objective Data Current Medications Generic Name Dose Route Start Last Admin Trade Name Trungq PRN Reason Stop Dose Admin Acetaminophen 650 mg 01/09/21 23:18 Acetaminophen 325 Mg Tablet PO Q6H PRN Pain, Mild (Pain Scale 1-3) Albuterol Sulfate 2 puff 01/09/21 23:23 Albuterol Sulfate 90 Mcg 8 Gm Inhaler INHALE Q4H PRN Dyspnea Albuterol/Ipratropium 3 ml 01/09/21 23:18 01/10/21 06:29 Albuterol/Iprat 2.5/0.5mg 3 Ml Ampul.Neb INHALE 3 ml RQ4H WHILE AWAKE PRN Administration Shortness of Breath/Wheezing Amlodipine Besylate 10 mg 01/10/21 09:00 01/10/21 08:27 Amlodipine Besylate 10 Mg Tablet PO 10 mg DAILY HI Administration Protocol Aspirin 81 mg 01/10/21 09:00 01/10/21 08:39 Aspirin Enteric Coated 81 Mg Tablet. PO 81 mg DAILY HI Administration Atorvastatin Calcium 10 mg 01/10/21 21:00 Atorvastatin Calcium 10 Mg Tablet PO BEDTIME HI Dextrose 25 gm 01/09/21 23:24 Dextrose 50 % 25 Gm/50 Ml Vial IVPUSH ONCE PRN hypoglucemia Enoxaparin Sodium 40 mg 01/09/21 23:30 01/10/21 00:51 Enoxaparin Sodium 40 Mg/0.4 Ml Syringe SUBCUT 40 mg Q24H HI Administration Fluoxetine HCl 40 mg 01/10/21 09:00 01/10/21 08:27 Fluoxetine Hcl 20 Mg Capsule PO 40 mg DAILY [facility] Administration Furosemide 80 mg 01/10/21 15:00 01/10/21 15:48 Furosemide 40 Mg/4 Ml Vial IVPUSH 80 mg DAILY [facility] Administration Protocol Gabapentin 400 mg 01/10/21 09:00 01/10/21 15:48 Gabapentin 400 Mg Capsule PO 400 mg TID [facility] Administration Insulin Glargine 40 unit 01/10/21 21:00 Insulin Glargine,Hum.Rec.Anlog 100 Unit/Ml 10 Ml Vial SUBCUT BEDTIME [facility] Insulin Human Lispro 0 - 12 unit 01/10/21 07:30 01/10/21 11:53 Insulin Lispro 100 Unit/Ml 3 Ml Vial SUBCUT 01/10/21 23:22 4 unit QIDACHS [facility] Administration Protocol Isosorbide Mononitrate 30 mg 01/10/21 09:00 01/10/21 08:26 Isosorbide Mononitrate 30 Mg Tab.Er.24h PO 30 mg DAILY [facility] Administration Protocol Metoprolol Succinate 50 mg 01/10/21 09:00 01/10/21 08:27 Metoprolol Succinate Er 50 Mg Tab.Er.24h PO 50 mg DAILY [facility] Administration Protocol Nitroglycerin 0.4 mg 01/09/21 23:18 Nitroglycerin 0.4 Mg Tab.Subl SUBLINGUAL Q5M PRN Chest Pain Omeprazole 20 mg 01/10/21 21:00 Omeprazole 20 Mg Capsule. PO BEDTIME [facility] Pharmacy Consult 1 each 01/09/21 19:16 Consult Rx Perform Med Rec MISCELLANE ONCE PRN Consult order Pregabalin 100 mg 01/10/21 09:00 01/10/21 08:26 Pregabalin 100 Mg Capsule PO 100 mg BID [facility] Administration Sodium Chloride 3 ml 01/10/21 00:00 01/10/21 15:55 0.9 % Sodium Chloride Flush 3 Ml Syringe IVFLUSH 3 ml QSHIFT [facility] Administration Tizanidine HCl 4 mg 01/10/21 21:00 Tizanidine Hcl 4 Mg Tablet PO BEDTIME [facility] Vitamin D 50 mcg 01/10/21 09:00 01/10/21 08:29 Cholecalciferol (Vitamin D3) 25 Mcg Tablet PO 50 mcg DAILY HI Administration Labs CBC & Chem 7: 01/10/21 05:38 01/10/21 05:38 Labs: Laboratory Results - last 24 hr 01/09/21 01/09/21 01/09/21 19:45 19:45 19:46 WBC 8.3 RBC 3.70 L Hgb 9.4 L Hct 34.0 L MCV 91.9 MCH 25.4 L MCHC 27.6 L RDW 17.1 H Plt Count 178 MPV 10.4 Immature Gran % (Auto) 1.0 H Neut % (Auto) 81.4 H Lymph % (Auto) 9.9 L [place] % (Auto) 6.2 Eos % (Auto) 1.3 Baso % (Auto) 0.2 Lymph # (Auto) 0.8 L [place] # (Auto) 0.5 Eos # (Auto) 0.1 Baso # (Auto) 0.0 Abs Immat Gran (auto) 0.08 H Absolute Neuts (auto) 6.7 Absolute Nucleated RBC 0.000 Nucleated RBC % (auto) 0.0 PT 11.5 INR 1.0 VBG pH VBG pCO2 VBG pO2 VBG HCO3 VBG O2 Saturation VBG Base Excess Sodium Potassium Chloride Carbon Dioxide Anion Gap BUN Creatinine Estim Creat Clear Calc Estimated GFR POC Glucose Random Glucose Lactic Acid 0.9 Calcium Total Bilirubin Direct Bilirubin AST ALT Alkaline Phosphatase Troponin I High Sens B-Natriuretic Peptide Total Protein Albumin Coronavirus (PCR) Influenza Type A (PCR) Influenza Type B (PCR) RSV RNA Qual (PCR) 01/09/21 01/09/21 01/09/21 19:46 19:46 19:46 WBC RBC Hgb Hct MCV MCH MCHC RDW Plt Count MPV Immature Gran % (Auto) Neut % (Auto) Lymph % (Auto) [place] % (Auto) Eos % (Auto) Baso % (Auto) Lymph # (Auto) [place] # (Auto) Eos # (Auto) Baso # (Auto) Abs Immat Gran (auto) Absolute Neuts (auto) Absolute Nucleated RBC Nucleated RBC % (auto) PT INR VBG pH VBG pCO2 VBG pO2 VBG HCO3 VBG O2 Saturation VBG Base Excess Sodium 144 Potassium 5.4 H D Chloride 110 H Carbon Dioxide 27 Anion Gap 12 BUN 63 H D Creatinine 1.24 Estim Creat Clear Calc 66.3 Estimated GFR 44 POC Glucose Random Glucose 167 H Lactic Acid Calcium 8.3 L Total Bilirubin 0.6 Direct Bilirubin 0.2 AST 11 ALT 12 Alkaline Phosphatase 94 Troponin I High Sens 6.4 B-Natriuretic Peptide 285 H Total Protein 6.8 Albumin 4.0 Coronavirus (PCR) NEGATIVE Influenza Type A (PCR) NEGATIVE Influenza Type B (PCR) NEGATIVE RSV RNA Qual (PCR) NEGATIVE 01/09/21 01/09/21 01/10/21 19:54 23:40 05:38 WBC 9.1 RBC 3.68 L Hgb 9.5 L Hct 33.0 L MCV 89.7 MCH 25.8 L MCHC 28.8 L RDW 17.1 H Plt Count 167 MPV 10.0 Immature Gran % (Auto) 0.8 H Neut % (Auto) 75.8 H Lymph % (Auto) 12.4 L [place] % (Auto) 8.8 Eos % (Auto) 2.1 Baso % (Auto) 0.1 Lymph # (Auto) 1.1 L [place] # (Auto) 0.8 Eos # (Auto) 0.2 Baso # (Auto) 0.0 Abs Immat Gran (auto) 0.07 H Absolute Neuts (auto) 6.9 Absolute Nucleated RBC 0.000 Nucleated RBC % (auto) 0.0 PT INR VBG pH 7.24 L VBG pCO2 67 VBG pO2 67 VBG HCO3 29 H VBG O2 Saturation 83.0 VBG Base Excess 0.6 Sodium Potassium Chloride Carbon Dioxide Anion Gap BUN Creatinine Estim Creat Clear Calc Estimated GFR POC Glucose Random Glucose Lactic Acid Calcium Total Bilirubin Direct Bilirubin AST ALT Alkaline Phosphatase Troponin I High Sens 10.6 D B-Natriuretic Peptide Total Protein Albumin Coronavirus (PCR) Influenza Type A (PCR) Influenza Type B (PCR) RSV RNA Qual (PCR) 01/10/21 01/10/21 01/10/21 05:38 07:07 08:29 WBC RBC Hgb Hct MCV MCH MCHC RDW Plt Count MPV Immature Gran % (Auto) Neut % (Auto) Lymph % (Auto) [place] % (Auto) Eos % (Auto) Baso % (Auto) Lymph # (Auto) [place] # (Auto) Eos # (Auto) Baso # (Auto) Abs Immat Gran (auto) Absolute Neuts (auto) Absolute Nucleated RBC Nucleated RBC % (auto) PT INR VBG pH VBG pCO2 VBG pO2 VBG HCO3 VBG O2 Saturation VBG Base Excess Sodium 146 H Potassium 4.8 Chloride 112 H Carbon Dioxide 28 Anion Gap 11 L BUN 56 H Creatinine 1.16 Estim Creat Clear Calc 68.9 Estimated GFR 48 POC Glucose 156 H Random Glucose 152 H Lactic Acid Calcium 8.1 L Total Bilirubin Direct Bilirubin AST ALT Alkaline Phosphatase Troponin I High Sens 10.8 B-Natriuretic Peptide Total Protein Albumin Coronavirus (PCR) Influenza Type A (PCR) Influenza Type B (PCR) RSV RNA Qual (PCR) 01/10/21 01/10/21 10:56 15:54 WBC RBC Hgb Hct MCV MCH MCHC RDW Plt Count MPV Immature Gran % (Auto) Neut % (Auto) Lymph % (Auto) [place] % (Auto) Eos % (Auto) Baso % (Auto) Lymph # (Auto) [place] # (Auto) Eos # (Auto) Baso # (Auto) Abs Immat Gran (auto) Absolute Neuts (auto) Absolute Nucleated RBC Nucleated RBC % (auto) PT INR VBG pH VBG pCO2 VBG pO2 VBG HCO3 VBG O2 Saturation VBG Base Excess Sodium Potassium Chloride Carbon Dioxide Anion Gap BUN Creatinine Estim Creat Clear Calc Estimated GFR POC Glucose 163 H 171 H Random Glucose Lactic Acid Calcium Total Bilirubin Direct Bilirubin AST ALT Alkaline Phosphatase Troponin I High Sens B-Natriuretic Peptide Total Protein Albumin Coronavirus (PCR) Influenza Type A (PCR) Influenza Type B (PCR) RSV RNA Qual (PCR) Quality Stroke Does the patient have a stroke diagnosis?: No VTE Prior VTE?: No VTE Risk Level:: Medical - moderate - high VTE Device Contraindication: N/A - Device Ordered VTE Drug Contraindication: N/A - Med Ordered Assessment and Plan (1) Acute on chronic congestive heart failure: Status: Acute Assessment and Plan: hospital d#2 60yo F with CHF [mildly reduced LVEF 40% and grade I diastolic dysfunction on TTE 11/23], HTN, HLD, DM2 + neuropathy, chronic pain, DANIEL/OHS, asthma presenting with dyspnea/chest discomfort # CHF exacerbation - increase furosemide to 80 mg IV bid; monitor daily weights, I/O, BNP, BMP, Mg - continue Imdur, metoprolol succinate - troponins flat # hyperK - resolved p SPS # asthma - prn nebulizer treatments # HTN - continue metoprolol succinate, amlodipine, Imdur # HLD - continue statin # DM2 - basal/bolus insulin # neuropathy - gabapentin; d/c pregabalin [therapeutic duplication] # mood disorder - continue fluoxetine # VTE ppx - LMWH
[2021-01-10 20:24] LABS: Glucose, Whole Blood 187 mg/dL (60-115)
[2021-01-10] MEDS: Omeprazole 20 MG CAPSULE.DR PO (20:30)
[2021-01-10] MEDS: Atorvastatin Calcium 10 MG TABLET PO (20:30)
[2021-01-10] MEDS: TiZANidine HCL 4 MG TABLET PO (20:30)
[2021-01-10 22:48] LABS: Glucose, Whole Blood 117 mg/dL (60-115)
[2021-01-11] VITALS (8 sets, daily range): BP systolic 99–132; BP diastolic 45–73; PULSE 78–85; RESP 16–19; TEMP 36.5–36.8; O2SAT 90–96; BMI 52.4
[2021-01-11 07:07] LABS: B Type Natriuretic Peptide 294 pg/mL (<100)
[2021-01-11 07:08] LABS: Glucose, Whole Blood 186 mg/dL (60-115)
[2021-01-11 07:09] LABS: Anion Gap 14 (12-20); Blood Urea Nitrogen 54 mg/dL (9-16); Calcium 8.1 mg/dL (8.4-10.2); Carbon Dioxide 29 mmol/L (22-29); Chloride 106 mmol/L (96-108); Creatinine Clr Calc Pharmacy 61.7; Estimated Glomerular Filt Rate 43; Glucose Random 223 mg/dL (60-115); Magnesium 2.3 mg/dL (1.6-2.6); Potassium 4.5 mmol/L (3.3-5.1); Sodium 144 mmol/L (135-145)
[2021-01-11] MEDS: Insulin Lispro 100 UNIT/ML 3 ML VIAL SUBCUT ×4 (07:41→20:39)
[2021-01-11] MEDS: FLUoxetine HCl 20 MG CAPSULE 40 MG PO (07:55)
[2021-01-11] MEDS: 0.9 % Sodium Chloride Flush 3 ML SYRINGE IVFLUSH ×3 (07:55→22:40)
[2021-01-11] MEDS: Aspirin Enteric Coated 81 MG TABLET.DR PO (07:55)
[2021-01-11] MEDS: Gabapentin 400 MG CAPSULE PO ×3 (07:55→20:38)
[2021-01-11] MEDS: Furosemide 40 MG/4 ML VIAL 80 MG IVPUSH ×2 (07:55→16:09)
[2021-01-11] MEDS: Cholecalciferol (Vitamin D3) 25 MCG TABLET 50 MCG PO (07:55)
--- NOTE | 2021-01-11 10:07 | P.PNCA_ITS ---
Subjective Subjective Date of Service: 01/11/21 Interval history: Feeling little better but continues to be significantly volume overloaded. Physical Exam Vital Signs: Last Vital Signs Temp 98.2 F 01/11/21 07:35 Pulse 85 01/11/21 07:35 Resp 18 01/11/21 07:35 BP 99/45 L 01/11/21 07:46 Pulse Ox 93 01/11/21 07:35 Oxygen Flow Rate 2 01/09/21 18:53 Body Mass Index 52.4 GENERAL APPEARANCE: Short of breath. NECK: no carotid bruit, + jugular venous distention. SKIN: no suspicious lesions, warm and dry. HEART: no murmurs, regular rate and rhythm. LUNGS: Crackles at bases. ABDOMEN: soft, nontender. Distended. EXTREMITIES: 1 to 2+ edema. PERIPHERAL PULSES: equal. NEUROLOGIC: No gross deficits, AAO X 3 Results Labs and Meds Result diagrams: 01/10/21 05:38 01/11/21 05:34 Lab results: Laboratory Results - last 24 hr 01/10/21 01/10/21 01/10/21 10:56 15:54 20:15 Sodium Potassium Chloride Carbon Dioxide Anion Gap BUN Creatinine Estim Creat Clear Calc Estimated GFR POC Glucose 163 H 171 H 187 H Random Glucose Calcium Magnesium B-Natriuretic Peptide 01/10/21 01/11/21 01/11/21 22:45 05:34 05:34 Sodium 144 Potassium 4.5 Chloride 106 Carbon Dioxide 29 Anion Gap 14 BUN 54 H Creatinine 1.27 Estim Creat Clear Calc 61.7 Estimated GFR 43 POC Glucose 117 H Random Glucose 223 H D Calcium 8.1 L Magnesium 2.3 B-Natriuretic Peptide 294 H 01/11/21 07:03 Sodium Potassium Chloride Carbon Dioxide Anion Gap BUN Creatinine Estim Creat Clear Calc Estimated GFR POC Glucose 186 H Random Glucose Calcium Magnesium B-Natriuretic Peptide Progress Note: A&P Assessment and plan (1) Acute on chronic congestive heart failure: Status: Acute Assessment and Plan: 60-year-old female presenting for acute on chronic congestive heart failure. She stopped her diuretics and developed significant volume overload. She is on 80 mg IV Lasix b.i.d.. She is 3 L negative. I think we should continue the diuretics at the same dose. Her blood pressure is little softer and I think we should hold amlodipine going forward. Her medications should be continued with hold parameters of systolic less than 100. Beta-zac should not be titrated till she is euvolemic. Monitor electrolytes closely. We will follow along with you. Thank you for allowing me to participate in the care of your patient. Please feel free to contact me if you have any questions. Fall Risk Details Current Medications: Current Medications Generic Name Dose Route Start Last Admin Trade Name Freq PRN Reason Stop Dose Admin Acetaminophen 650 mg 01/09/21 23:18 Acetaminophen 325 Mg Tablet PO Q6H PRN Pain, Mild (Pain Scale 1-3) Albuterol Sulfate 2 puff 01/09/21 23:23 Albuterol Sulfate 90 Mcg 8 Gm Inhaler INHALE Q4H PRN Dyspnea Albuterol/Ipratropium 3 ml 01/09/21 23:18 01/10/21 06:29 Albuterol/Iprat 2.5/0.5mg 3 Ml Ampul.Neb INHALE 3 ml RQ4H WHILE AWAKE PRN Administration Shortness of Breath/Wheezing Amlodipine Besylate 10 mg 01/10/21 09:00 01/11/21 07:45 Amlodipine Besylate 10 Mg Tablet PO Not Given DAILY [facility] Protocol Aspirin 81 mg 01/10/21 09:00 01/11/21 07:55 Aspirin Enteric Coated 81 Mg Tablet. PO 81 mg DAILY [facility] Administration Atorvastatin Calcium 10 mg 01/10/21 21:00 01/10/21 20:30 Atorvastatin Calcium 10 Mg Tablet PO 10 mg BEDTIME [facility] Administration Dextrose 25 gm 01/09/21 23:24 Dextrose 50 % 25 Gm/50 Ml Vial IVPUSH ONCE PRN hypoglucemia Enoxaparin Sodium 40 mg 01/09/21 23:30 01/10/21 22:33 Enoxaparin Sodium 40 Mg/0.4 Ml Syringe SUBCUT 40 mg Q24H [facility] Administration Fluoxetine HCl 40 mg 01/10/21 09:00 01/11/21 07:55 Fluoxetine Hcl 20 Mg Capsule PO 40 mg DAILY [facility] Administration Furosemide 80 mg 01/10/21 18:00 01/11/21 07:55 Furosemide 40 Mg/4 Ml Vial IVPUSH 80 mg BID@0900,1800 [facility] Administration Protocol Gabapentin 400 mg 01/10/21 09:00 01/11/21 07:55 Gabapentin 400 Mg Capsule PO 400 mg TID [facility] Administration Insulin Glargine 40 unit 01/10/21 21:00 01/10/21 20:31 Insulin Glargine,Hum.Rec.Anlog 100 Unit/Ml 10 Ml Vial SUBCUT Not Given BEDTIME [facility] Insulin Human Lispro 0 unit 01/11/21 07:30 01/11/21 07:41 Insulin Lispro 100 Unit/Ml 3 Ml Vial SUBCUT 2 unit QIDACHS [facility] Administration Protocol Isosorbide Mononitrate 30 mg 01/10/21 09:00 01/11/21 07:45 Isosorbide Mononitrate 30 Mg Tab.Er.24h PO Not Given DAILY [facility] Protocol Metoprolol Succinate 50 mg 01/10/21 09:00 01/11/21 07:46 Metoprolol Succinate Er 50 Mg Tab.Er.24h PO Not Given DAILY [facility] Protocol Nitroglycerin 0.4 mg 01/09/21 23:18 Nitroglycerin 0.4 Mg Tab.Subl SUBLINGUAL Q5M PRN Chest Pain Omeprazole 20 mg 01/10/21 21:00 01/10/21 20:30 Omeprazole 20 Mg Capsule.Dr PO 20 mg BEDTIME [facility] Administration Pharmacy Consult 1 each 01/09/21 19:16 Consult Rx Perform Med Rec MISCELLANE ONCE PRN Consult order Sodium Chloride 3 ml 01/10/21 00:00 01/11/21 07:55 0.9 % Sodium Chloride Flush 3 Ml Syringe IVFLUSH 3 ml QSHIFT [facility] Administration Tizanidine HCl 4 mg 01/10/21 21:00 01/10/21 20:30 Tizanidine Hcl 4 Mg Tablet PO 4 mg BEDTIME [facility] Administration Vitamin D 50 mcg 01/10/21 09:00 01/11/21 07:55 Cholecalciferol (Vitamin D3) 25 Mcg Tablet PO 50 mcg DAILY [facility] Administration Time Spent With Patient Time: Total time spent is greater than 50% in coordination of care (as documented) at patient's floor/unit and/or counseling patient: Time with patient: 15 - 24 minutes Progress Note: Quality Stroke Does the patient have a stroke diagnosis?: No Procedures Date of Service Date of Service: 01/11/21
--- NOTE | 2021-01-11 11:18 | HO.PM.IMPN ---
Subjective Subjective Date of Service: 01/11/21 Interval History: still c/o abd + leg swelling and dyspnea Physical Exam Vital Signs: Vital Signs: Last Vital Signs Temp 98.2 F 01/11/21 07:35 Pulse 85 01/11/21 07:35 Resp 18 01/11/21 07:35 BP 99/45 L 01/11/21 07:46 Pulse Ox 93 01/11/21 07:35 Oxygen Flow Rate 2 01/09/21 18:53 Body Mass Index 52.4 Gen: in no acute distress HEENT: sclera anicteric, moist mucus membranes Neck: supple Lungs: decreased at bases bilaterally Heart: regular rate and rhythm, JVD present Abd:morbidly obese, soft, non-tender, non-distended Ext: 2+ BLE edema Skin: warm/well-perfused Neuro: alert and oriented x3, no focal findings Psych: appropriate affect Objective Data Current Medications Generic Name Dose Route Start Last Admin Trade Name Freq PRN Reason Stop Dose Admin Acetaminophen 650 mg 01/09/21 23:18 Acetaminophen 325 Mg Tablet PO Q6H PRN Pain, Mild (Pain Scale 1-3) Albuterol Sulfate 2 puff 01/09/21 23:23 Albuterol Sulfate 90 Mcg 8 Gm Inhaler INHALE Q4H PRN Dyspnea Albuterol/Ipratropium 3 ml 01/09/21 23:18 01/10/21 06:29 Albuterol/Iprat 2.5/0.5mg 3 Ml Ampul.Neb INHALE 3 ml RQ4H WHILE AWAKE PRN Administration Shortness of Breath/Wheezing Aspirin 81 mg 01/10/21 09:00 01/11/21 07:55 Aspirin Enteric Coated 81 Mg Tablet.Dr PO 81 mg DAILY [facility] Administration Atorvastatin Calcium 10 mg 01/10/21 21:00 01/10/21 20:30 Atorvastatin Calcium 10 Mg Tablet PO 10 mg BEDTIME [facility] Administration Dextrose 25 gm 01/09/21 23:24 Dextrose 50 % 25 Gm/50 Ml Vial IVPUSH ONCE PRN hypoglucemia Enoxaparin Sodium 40 mg 01/09/21 23:30 01/10/21 22:33 Enoxaparin Sodium 40 Mg/0.4 Ml Syringe SUBCUT 40 mg Q24H [facility] Administration Fluoxetine HCl 40 mg 01/10/21 09:00 01/11/21 07:55 Fluoxetine Hcl 20 Mg Capsule PO 40 mg DAILY [facility] Administration Furosemide 80 mg 01/10/21 18:00 01/11/21 07:55 Furosemide 40 Mg/4 Ml Vial IVPUSH 80 mg BID@0900,1800 [facility] Administration Protocol Gabapentin 400 mg 01/10/21 09:00 01/11/21 07:55 Gabapentin 400 Mg Capsule PO 400 mg TID [facility] Administration Insulin Glargine 40 unit 01/10/21 21:00 01/10/21 20:31 Insulin Glargine,Hum.Rec.Anlog 100 Unit/Ml 10 Ml Vial SUBCUT Not Given BEDTIME [facility] Insulin Human Lispro 0 unit 01/11/21 07:30 01/11/21 07:41 Insulin Lispro 100 Unit/Ml 3 Ml Vial SUBCUT 2 unit QIDACHS [facility] Administration Protocol Isosorbide Mononitrate 30 mg 01/10/21 09:00 01/11/21 07:45 Isosorbide Mononitrate 30 Mg Tab.Er.24h PO Not Given DAILY [facility] Protocol Metoprolol Succinate 50 mg 01/10/21 09:00 01/11/21 07:46 Metoprolol Succinate Er 50 Mg Tab.Er.24h PO Not Given DAILY [facility] Protocol Nitroglycerin 0.4 mg 01/09/21 23:18 Nitroglycerin 0.4 Mg Tab.Subl SUBLINGUAL Q5M PRN Chest Pain Omeprazole 20 mg 01/10/21 21:00 01/10/21 20:30 Omeprazole 20 Mg Capsule.Dr PO 20 mg BEDTIME [facility] Administration Pharmacy Consult 1 each 01/09/21 19:16 Consult Rx Perform Med Rec MISCELLANE ONCE PRN Consult order Sodium Chloride 3 ml 01/10/21 00:00 01/11/21 07:55 0.9 % Sodium Chloride Flush 3 Ml Syringe IVFLUSH 3 ml QSHIFT [facility] Administration Tizanidine HCl 4 mg 01/10/21 21:00 01/10/21 20:30 Tizanidine Hcl 4 Mg Tablet PO 4 mg BEDTIME [facility] Administration Vitamin D 50 mcg 01/10/21 09:00 01/11/21 07:55 Cholecalciferol (Vitamin D3) 25 Mcg Tablet PO 50 mcg DAILY [facility] Administration Labs CBC & Chem 7: 01/10/21 05:38 01/11/21 05:34 Labs: Laboratory Results - last 24 hr 01/10/21 01/10/2101/10/21 15:54 20:15 22:45 Sodium Potassium Chloride Carbon Dioxide Anion Gap BUN Creatinine Estim Creat Clear Calc Estimated GFR POC Glucose 171 H 187 H 117 H Random Glucose Calcium Magnesium B-Natriuretic Peptide 01/11/21 01/11/21 01/11/21 05:34 05:34 07:03 Sodium 144 Potassium 4.5 Chloride 106 Carbon Dioxide 29 Anion Gap 14 BUN 54 H Creatinine 1.27 Estim Creat Clear Calc 61.7 Estimated GFR 43 POC Glucose 186 H Random Glucose 223 H D Calcium 8.1 L Magnesium 2.3 B-Natriuretic Peptide 294 H Microbiology Microbiology Results: Microbiology 01/09/21 19:45 Blood Culture - Preliminary Blood - Venous No growth after 24 hours. 01/09/21 19:45 Blood Culture - Preliminary Blood - Venous No growth after 24 hours. Quality Stroke Does the patient have a stroke diagnosis?: No VTE Prior VTE?: No VTE Risk Level:: Medical - moderate - high VTE Device Contraindication: N/A - Device Ordered VTE Drug Contraindication: N/A - Med Ordered Assessment and Plan (1) Acute on chronic congestive heart failure: Status: Acute Assessment and Plan: hospital d#3 60yo F with CHF [mildly reduced LVEF 40% and grade I diastolic dysfunction on TTE 11/23], HTN, HLD, DM2 + neuropathy, chronic pain, DANIEL/OHS, asthma presenting with dyspnea/chest discomfort, 17kg above baseline weight # CHF exacerbation - continue furosemide 80 mg IV bid; monitor daily weights, I/O, BNP, BMP, Mg; pt still is 6.4kg above baseline; net -3.2L so far - continue Imdur, metoprolol succinate - troponins flat # acute hypoxic resp failure - RA SaO2 yesterday afternoon was 79. continue supplemental O2, currently on 2L via [place]. may need home O2 eval prior to discharge # hyperK - resolved p SPS # HTN - continue metoprolol succinate, Imdur; hold amlodipine for soft BP # DANIEL - CPAP # HLD - continue statin # asthma, not in acute exacerbation - prn nebulizer treatments # DM2 - basal/bolus insulin # neuropathy - gabapentin; d/c pregabalin [therapeutic duplication] # mood disorder - continue fluoxetine # VTE ppx - LMWH
[2021-01-11 11:30] LABS: Glucose, Whole Blood 195 mg/dL (60-115)
--- NOTE | 2021-01-11 13:41 | MHC.CM.PN ---
CM MET WITH PT WITH THE ASSISTANCE OF [employer] HOWEVER PT WAS ABLE TO PROVIDE ALL INFORMATION IN JAPANESE. PT EXPLAINS, HER DAUGHTER COMES TO HER HOME DAILY AFTER WORK TO ASSIST HER AND IS TRYING TO GET CIRCUS TRAINER HOURS THROUGH [employer] HOWEVER THEY HAVE NOT SET ANYTHING UP FOR HER YET. SHE REPORTS HAVING A WALKER, CANE, COMMODE, HOSPITAL BED, AND NEBULIZER. SHE REPORTS DR WATSON WROTE HER A LETTER TO HAVE GRAB BARS INSTALLED IN HER BATHROOM HOWEVER THE [facility] HAS NOT YET COMPLIED. PT REPORTS SHE IS ACTIVE WITH [facility] FOR PT AND OT ONLY. REFERRAL SENT IN [employer] FOR THEM TO FOLLOW ADMISSION CURRENT DC PLAN IS HOME WITH RESUMPTION OF [facility] FOR PT /OT AND FAMILY CARE PT REPORTS SHE WILL NEED AN AMBULANCE OR CHAIR VAN AT DC. PT CONFIRMS SHE IS ABLE TO TRANSFER TO WHEELCHAIR
[2021-01-11 16:04] LABS: Glucose, Whole Blood 230 mg/dL (60-115)
[2021-01-11 20:31] LABS: Glucose, Whole Blood 241 mg/dL (60-115)
[2021-01-11] MEDS: TiZANidine HCL 4 MG TABLET PO (20:38)
[2021-01-11] MEDS: Omeprazole 20 MG CAPSULE.DR PO (20:39)
[2021-01-11] MEDS: Atorvastatin Calcium 10 MG TABLET PO (20:39)
[2021-01-11] MEDS: Insulin Glargine,Hum.rec.anlog 100 UNIT/ML 10 ML VIAL 40 UNIT SUBCUT (20:39)
[2021-01-11] MEDS: Enoxaparin Sodium 40 MG/0.4 ML SYRINGE SUBCUT (22:38)
[2021-01-12] VITALS (10 sets, daily range): BP systolic 115–155; BP diastolic 54–79; PULSE 77–92; RESP 18–20; TEMP 36.2–37; O2SAT 94–96; BMI 51.2
[2021-01-12 07:32] LABS: Anion Gap 11 (12-20); Blood Urea Nitrogen 48 mg/dL (9-16); Carbon Dioxide 31 mmol/L (22-29); Chloride 105 mmol/L (96-108); Creatinine Clr Calc Pharmacy 68.2; Estimated Glomerular Filt Rate 48; Glucose Random 188 mg/dL (60-115); Magnesium 1.9 mg/dL (1.6-2.6); Potassium 4.3 mmol/L (3.3-5.1); Sodium 143 mmol/L (135-145)
[2021-01-12 07:34] LABS: Glucose, Whole Blood 174 mg/dL (60-115)
[2021-01-12] MEDS: Gabapentin 400 MG CAPSULE PO ×3 (07:43→21:10)
[2021-01-12] MEDS: Cholecalciferol (Vitamin D3) 25 MCG TABLET 50 MCG PO (07:43)
[2021-01-12] MEDS: FLUoxetine HCl 20 MG CAPSULE 40 MG PO (07:43)
[2021-01-12] MEDS: Aspirin Enteric Coated 81 MG TABLET.DR PO (07:43)
[2021-01-12] MEDS: Isosorbide Mononitrate 30 MG TAB.ER.24H PO (07:44)
[2021-01-12] MEDS: Metoprolol Succinate ER 50 MG TAB.ER.24H PO (07:46)
[2021-01-12] MEDS: Insulin Lispro 100 UNIT/ML 3 ML VIAL SUBCUT ×4 (07:46→21:09)
[2021-01-12] MEDS: Furosemide 40 MG/4 ML VIAL 80 MG IVPUSH (07:47)
[2021-01-12 07:59] LABS: B Type Natriuretic Peptide 290 pg/mL (<100)
[2021-01-12] MEDS: 0.9 % Sodium Chloride Flush 3 ML SYRINGE IVFLUSH ×3 (08:03→21:12)
[2021-01-12 11:08] LABS: Glucose, Whole Blood 270 mg/dL (60-115)
[2021-01-12] MEDS: Pregabalin 100 MG CAPSULE PO ×2 (11:38→21:10)
[2021-01-12] MEDS: amLODIPine Besylate 5 MG TABLET PO (11:39)
--- NOTE | 2021-01-12 12:03 | PM.PNCARD ---
Subjective Subjective Date of Service: 01/12/21 Interval history: Feeling better. Still volume overloaded. Physical Exam Vital Signs: Last Vital Signs Temp 98.1 F 01/12/21 11:34 Pulse 86 01/12/21 11:39 Resp 18 01/12/21 11:34 BP 135/70 01/12/21 11:39 Pulse Ox 96 01/12/21 11:34 Oxygen Flow Rate 2 01/09/21 18:53 Body Mass Index 51.2 GENERAL APPEARANCE: In no acute distress. NECK: no carotid bruit, + jugular venous distention. SKIN: no suspicious lesions, warm and dry. HEART: no murmurs, regular rate and rhythm. LUNGS: Clear to auscultation. ABDOMEN: soft, nontender. Distended. EXTREMITIES: 1+ edema. PERIPHERAL PULSES: equal. NEUROLOGIC: No gross deficits, AAO X 3 Results Labs and Meds Result diagrams: 01/10/21 05:38 01/12/21 05:56 Lab results: Laboratory Results - last 24 hr 01/11/21 01/11/21 01/12/21 15:50 20:23 05:56 Sodium 143 Potassium 4.3 Chloride 105 Carbon Dioxide 31 H Anion Gap 11 L BUN 48 H Creatinine 1.15 Estim Creat Clear Calc 68.2 Estimated GFR 48 POC Glucose 230 H 241 H Random Glucose 188 H Calcium 8.0 L Magnesium 1.9 B-Natriuretic Peptide 01/12/21 01/12/21 01/12/21 05:56 07:23 10:54 Sodium Potassium Chloride Carbon Dioxide Anion Gap BUN Creatinine Estim Creat Clear Calc Estimated GFR POC Glucose 174 H 270 H Random Glucose Calcium Magnesium B-Natriuretic Peptide 290 H Progress Note: A&P Assessment and plan (1) Acute on chronic congestive heart failure: Status: Acute Assessment and Plan: 60-year-old female presenting for congestive heart failure in the setting of diuretic noncompliance. Continues to be significantly volume overloaded. Continue with IV Lasix 80 mg twice a day. Monitor electrolytes closely. Blood pressure control is better. Thank you for allowing me to participate in the care of your patient. Please feel free to contact me if you have any questions. Fall Risk Details Current Medications: Current Medications Generic Name Dose Route Start Last Admin Trade Name Freq PRN Reason Stop Dose Admin Acetaminophen 650 mg 01/09/21 23:18 Acetaminophen 325 Mg Tablet PO Q6H PRN Pain, Mild (Pain Scale 1-3) Albuterol Sulfate 2 puff 01/09/21 23:23 Albuterol Sulfate 90 Mcg 8 Gm Inhaler INHALE Q4H PRN Dyspnea Albuterol/Ipratropium 3 ml 01/09/21 23:18 01/10/21 06:29 Albuterol/Iprat 2.5/0.5mg 3 Ml Ampul.Neb INHALE 3 ml RQ4H WHILE AWAKE PRN Administration Shortness of Breath/Wheezing Amlodipine Besylate 5 mg 01/12/21 10:45 01/12/21 11:39 Amlodipine Besylate 5 Mg Tablet PO 5 mg DAILY [facility] Administration Protocol Aspirin 81 mg 01/10/21 09:00 01/12/21 07:43 Aspirin Enteric Coated 81 Mg Tablet.Dr PO 81 mg DAILY [facility] Administration Atorvastatin Calcium 10 mg 01/10/21 21:00 01/11/21 20:39 Atorvastatin Calcium 10 Mg Tablet PO 10 mg BEDTIME [facility] Administration Dextrose 25 gm 01/09/21 23:24 Dextrose 50 % 25 Gm/50 Ml Vial IVPUSH ONCE PRN hypoglucemia Enoxaparin Sodium 40 mg 01/09/21 23:30 01/11/21 22:38 Enoxaparin Sodium 40 Mg/0.4 Ml Syringe SUBCUT 40 mg Q24H [facility] Administration Fluoxetine HCl 40 mg 01/10/21 09:00 01/12/21 07:43 Fluoxetine Hcl 20 Mg Capsule PO 40 mg DAILY [facility] Administration Furosemide 40 mg 01/12/21 18:00 Furosemide 40 Mg/4 Ml Vial IVPUSH BID@0900,1800 [facility] Protocol Gabapentin 400 mg 01/10/21 09:00 01/12/21 07:43 Gabapentin 400 Mg Capsule PO 400 mg TID [facility] Administration Insulin Glargine 40 unit 01/10/21 21:00 01/11/21 20:39 Insulin Glargine,Hum.Rec.Anlog 100 Unit/Ml 10 Ml Vial SUBCUT 40 unit BEDTIME [facility] Administration Insulin Human Lispro 0 unit 01/11/21 07:30 01/12/21 11:38 Insulin Lispro 100 Unit/Ml 3 Ml Vial SUBCUT 2 unit QIDACHS [facility] Administration Protocol Isosorbide Mononitrate 30 mg 01/10/21 09:00 01/12/21 07:44 Isosorbide Mononitrate 30 Mg Tab.Er.24h PO 30 mg DAILY [facility] Administration Protocol Metoprolol Succinate 50 mg 01/10/21 09:00 01/12/21 07:46 Metoprolol Succinate Er 50 Mg Tab.Er.24h PO 50 mg DAILY [facility] Administration Protocol Nitroglycerin 0.4 mg 01/09/21 23:18 Nitroglycerin 0.4 Mg Tab.Subl SUBLINGUAL Q5M PRN Chest Pain Omeprazole 20 mg 01/10/21 21:00 01/11/21 20:39 Omeprazole 20 Mg Capsule.Dr PO 20 mg BEDTIME [facility] Administration Pharmacy Consult 1 each 01/09/21 19:16 Consult Rx Perform Med Rec MISCELLANE ONCE PRN Consult order Pregabalin 100 mg 01/12/21 11:00 01/12/21 11:38 Pregabalin 100 Mg Capsule PO 100 mg BID [facility] Administration Sodium Chloride 3 ml 01/10/21 00:00 01/12/21 08:03 0.9 % Sodium Chloride Flush 3 Ml Syringe IVFLUSH 3 ml QSHIFT [facility] Administration Tizanidine HCl 4 mg 01/10/21 21:00 01/11/21 20:38 Tizanidine Hcl 4 Mg Tablet PO 4 mg BEDTIME [facility] Administration Vitamin D 50 mcg 01/10/21 09:00 01/12/21 07:43 Cholecalciferol (Vitamin D3) 25 Mcg Tablet PO 50 mcg DAILY [facility] Administration Time Spent With Patient Time: Total time spent is greater than 50% in coordination of care (as documented) at patient's floor/unit and/or counseling patient: Time with patient: 15 - 24 minutes Progress Note: Quality Stroke Does the patient have a stroke diagnosis?: No Procedures Date of Service Date of Service: 01/12/21
[2021-01-12 16:16] LABS: Glucose, Whole Blood 206 mg/dL (60-115)
--- NOTE | 2021-01-12 16:36 | HO.PM.IMPN ---
Subjective Subjective Date of Service: 01/12/21 Interval History: complaining of pain in chest and legs with deep breathing, denies shortness of breath, no chest pain, refusing to get out of bed to chair due to pain, no other acute issues noted overnight. [employer] no headache, no dizziness CVS no chest pain, no palpitation GI no nausea, no vomit Physical Exam Vital Signs: Vital Signs: Last Vital Signs Temp 97.6 F 01/12/21 15:36 Pulse 83 01/12/21 15:36 Resp 18 01/12/21 15:36 BP 117/63 01/12/21 15:36 Pulse Ox 95 01/12/21 15:36 Oxygen Flow Rate 2 01/09/21 18:53 Body Mass Index 51.2 Gen: in no acute distress Neck: supple, no JVD Lungs: decreased at bases bilaterally, no rales, no wheeze, no anterior chest wall tenderness with palpation Heart: regular rate and rhythm Abd:morbidly obese, soft, non-tender, non-distended Ext: 2+ BLE edema Skin: warm/well-perfused Neuro: alert and oriented x3, no focal findings Psych: appropriate affect Objective Data Current Medications Generic Name Dose Route Start Last Admin Trade Name Freq PRN Reason Stop Dose Admin Acetaminophen 650 mg 01/09/21 23:18 Acetaminophen 325 Mg Tablet PO Q6H PRN Pain, Mild (Pain Scale 1-3) Albuterol Sulfate 2 puff 01/09/21 23:23 Albuterol Sulfate 90 Mcg 8 Gm Inhaler INHALE Q4H PRN Dyspnea Albuterol/Ipratropium 3 ml 01/09/21 23:18 01/10/21 06:29 Albuterol/Iprat 2.5/0.5mg 3 Ml Ampul.Neb INHALE 3 ml RQ4H WHILE AWAKE PRN Administration Shortness of Breath/Wheezing Amlodipine Besylate 5 mg 01/12/21 10:45 01/12/21 11:39 Amlodipine Besylate 5 Mg Tablet PO 5 mg DAILY [facility] Administration Protocol Aspirin 81 mg 01/10/21 09:00 01/12/21 07:43 Aspirin Enteric Coated 81 Mg Tablet. PO 81 mg DAILY [facility] Administration Atorvastatin Calcium 10 mg 01/10/21 21:00 01/11/21 20:39 Atorvastatin Calcium 10 Mg Tablet PO 10 mg BEDTIME [facility] Administration Dextrose 25 gm 01/09/21 23:24 Dextrose 50 % 25 Gm/50 Ml Vial IVPUSH ONCE PRN hypoglucemia Enoxaparin Sodium 40 mg 01/09/21 23:30 01/11/21 22:38 Enoxaparin Sodium 40 Mg/0.4 Ml Syringe SUBCUT 40 mg Q24H [facility] Administration Fluoxetine HCl 40 mg 01/10/21 09:00 01/12/21 07:43 Fluoxetine Hcl 20 Mg Capsule PO 40 mg DAILY [facility] Administration Furosemide 40 mg 01/12/21 18:00 Furosemide 40 Mg/4 Ml Vial IVPUSH BID@0900,1800 [facility] Protocol Gabapentin 400 mg 01/10/21 09:00 01/12/21 16:28 Gabapentin 400 Mg Capsule PO 400 mg TID [facility] Administration Insulin Glargine 40 unit 01/10/21 21:00 01/11/21 20:39 Insulin Glargine,Hum.Rec.Anlog 100 Unit/Ml 10 Ml Vial SUBCUT 40 unit BEDTIME [facility] Administration Insulin Human Lispro 0 unit 01/11/21 07:30 01/12/21 16:27 Insulin Lispro 100 Unit/Ml 3 Ml Vial SUBCUT 4 unit QIDACHS [facility] Administration Protocol Isosorbide Mononitrate 30 mg 01/10/21 09:00 01/12/21 07:44 Isosorbide Mononitrate 30 Mg Tab.Er.24h PO 30 mg DAILY [facility] Administration Protocol Metoprolol Succinate 50 mg 01/10/21 09:00 01/12/21 07:46 Metoprolol Succinate Er 50 Mg Tab.Er.24h PO 50 mg DAILY [facility] Administration Protocol Nitroglycerin 0.4 mg 01/09/21 23:18 Nitroglycerin 0.4 Mg Tab.Subl SUBLINGUAL Q5M PRN Chest Pain Omeprazole 20 mg 01/10/21 21:00 01/11/21 20:39 Omeprazole 20 Mg Capsule.Dr PO 20 mg BEDTIME [facility] Administration Pharmacy Consult 1 each 01/09/21 19:16 Consult Rx Perform Med Rec MISCELLANE ONCE PRN Consult order Pregabalin 100 mg 01/12/21 11:00 01/12/21 11:38 Pregabalin 100 Mg Capsule PO 100 mg BID [facility] Administration Sodium Chloride 3 ml 01/10/21 00:00 01/12/21 16:28 0.9 % Sodium Chloride Flush 3 Ml Syringe IVFLUSH 3 ml QSHIFT [facility] Administration Tizanidine HCl 4 mg 01/10/21 21:00 01/11/21 20:38 Tizanidine Hcl 4 Mg Tablet PO 4 mg BEDTIME [facility] Administration Vitamin D 50 mcg 01/10/21 09:00 01/12/21 07:43 Cholecalciferol (Vitamin D3) 25 Mcg Tablet PO 50 mcg DAILY [facility] Administration Labs CBC & Chem 7: 01/10/21 05:38 01/12/21 05:56 Labs: Laboratory Results - last 24 hr 01/11/21 01/12/21 01/12/21 20:23 05:56 05:56 Sodium 143 Potassium 4.3 Chloride 105 Carbon Dioxide 31 H Anion Gap 11 L BUN 48 H Creatinine 1.15 Estim Creat Clear Calc 68.2 Estimated GFR 48 POC Glucose 241 H Random Glucose 188 H Calcium 8.0 L Magnesium 1.9 B-Natriuretic Peptide 290 H 01/12/21 01/12/21 01/12/21 07:23 10:54 16:08 Sodium Potassium Chloride Carbon Dioxide Anion Gap BUN Creatinine Estim Creat Clear Calc Estimated GFR POC Glucose 174 H 270 H 206 H Random Glucose Calcium Magnesium B-Natriuretic Peptide Microbiology Microbiology Results: Microbiology 01/09/21 19:45 Blood Culture - Preliminary Blood - Venous No growth after 48 hours. 01/09/21 19:45 Blood Culture - Preliminary Blood - Venous No growth after 48 hours. Quality Stroke Does the patient have a stroke diagnosis?: No VTE Prior VTE?: No VTE Risk Level:: Medical - moderate - high VTE Device Contraindication: N/A - Device Ordered VTE Drug Contraindication: N/A - Med Ordered Assessment and Plan (1) Acute on chronic congestive heart failure: Status: Acute (2) Obesity hypoventilation syndrome: Status: Acute (3) DANIEL (obstructive sleep apnea): Status: Acute (4) CKD (chronic kidney disease) stage 3, GFR 30-59 ml/min: Status: Acute (5) NICM (nonischemic cardiomyopathy): Status: Acute (6) Morbid obesity: Status: Acute (7) Diabetic neuropathy, painful: Status: Acute Assessment and Plan: 60yo F with CHF [mildly reduced LVEF 40% and grade I diastolic dysfunction on TTE 11/23], HTN, HLD, DM2 + neuropathy, chronic pain, DANIEL/OHS, asthma presenting with dyspnea/chest discomfort, 17kg above baseline weight # acute on chronic combined systolic/diastolic CHF exacerbation - denies shortness of breath or chest pain but appears hypervolemic - continue furosemide 80 mg IV bid; monitor daily weights,follow I/O, BNP, BMP, Mg; neg -6.5L so far - continue Imdur, and metoprolol succinate - troponins flat, case discussed with Dr. Hebert he agrees with above treatment. # acute hypoxic resp failure - not on home oxygen will gradually wean oxygen and obtain home O2 eval prior to discharge # hyperK - resolved # HTN - continue metoprolol succinate, Imdur; hold amlodipine for soft BP # DANIEL - CPAP # HLD - continue statin # asthma, not in acute exacerbation - prn nebulizer treatments # DM2 - basal/bolus insulin # neuropathy - gabapentin; patient requesting to be placed back on lyrica complaining of bilateral leg pain, explained therapeutic duplication recommend follow-up with PCP # mood disorder - continue fluoxetine # VTE ppx - LMWH
[2021-01-12] MEDS: Furosemide 40 MG/4 ML VIAL IVPUSH (18:41)
[2021-01-12 20:15] LABS: Glucose, Whole Blood 203 mg/dL (60-115)
[2021-01-12] MEDS: Insulin Glargine,Hum.rec.anlog 100 UNIT/ML 10 ML VIAL 40 UNIT SUBCUT (21:09)
[2021-01-12] MEDS: Omeprazole 20 MG CAPSULE.DR PO (21:10)
[2021-01-12] MEDS: Atorvastatin Calcium 10 MG TABLET PO (21:10)
[2021-01-12] MEDS: TiZANidine HCL 4 MG TABLET PO (21:11)
[2021-01-12] MEDS: Enoxaparin Sodium 40 MG/0.4 ML SYRINGE SUBCUT (23:04)
[2021-01-13] VITALS (11 sets, daily range): BP systolic 117–148; BP diastolic 56–79; PULSE 79–99; RESP 18–20; TEMP 36.3–36.6; O2SAT 89–96; BMI 51.7
[2021-01-13 06:57] LABS: Anion Gap 11 (12-20); Blood Urea Nitrogen 44 mg/dL (9-16); Calcium 8.2 mg/dL (8.4-10.2); Carbon Dioxide 34 mmol/L (22-29); Chloride 103 mmol/L (96-108); Creatinine Clr Calc Pharmacy 67.2; Estimated Glomerular Filt Rate 48; Glucose Random 200 mg/dL (60-115); Sodium 144 mmol/L (135-145)
[2021-01-13 07:01] LABS: B Type Natriuretic Peptide 343 pg/mL (<100)
[2021-01-13 07:20] LABS: Glucose, Whole Blood 212 mg/dL (60-115)
[2021-01-13] MEDS: Insulin Lispro 100 UNIT/ML 3 ML VIAL SUBCUT ×4 (08:13→21:09)
[2021-01-13] MEDS: Pregabalin 100 MG CAPSULE PO ×2 (08:14→21:10)
[2021-01-13] MEDS: FLUoxetine HCl 20 MG CAPSULE 40 MG PO (08:14)
[2021-01-13] MEDS: Cholecalciferol (Vitamin D3) 25 MCG TABLET 50 MCG PO (08:14)
[2021-01-13] MEDS: Aspirin Enteric Coated 81 MG TABLET.DR PO (08:14)
[2021-01-13] MEDS: Furosemide 40 MG/4 ML VIAL IVPUSH (08:14)
[2021-01-13] MEDS: Gabapentin 400 MG CAPSULE PO ×3 (08:15→21:10)
[2021-01-13] MEDS: amLODIPine Besylate 5 MG TABLET PO (08:15)
[2021-01-13] MEDS: Isosorbide Mononitrate 30 MG TAB.ER.24H PO (08:15)
[2021-01-13] MEDS: Metoprolol Succinate ER 50 MG TAB.ER.24H PO (08:15)
[2021-01-13] MEDS: 0.9 % Sodium Chloride Flush 3 ML SYRINGE IVFLUSH ×3 (08:19→21:11)
[2021-01-13 11:05] LABS: Glucose, Whole Blood 305 mg/dL (60-115)
--- NOTE | 2021-01-13 12:18 | P.PNCA_ITS ---
Subjective Subjective Date of Service: 01/13/21 Interval history: Feeling better. Off oxygen right now. Still volume overloaded. Physical Exam Vital Signs: Last Vital Signs Temp 98 F 01/13/21 11:13 Pulse 84 01/13/21 11:13 Resp 18 01/13/21 11:13 BP 121/62 01/13/21 11:13 Pulse Ox 92 01/13/21 11:13 Oxygen Flow Rate 2 01/09/21 18:53 Body Mass Index 51.7 GENERAL APPEARANCE: In no acute distress. NECK: no carotid bruit, + jugular venous distention. SKIN: no suspicious lesions, warm and dry. HEART: no murmurs, regular rate and rhythm. LUNGS: Clear to auscultation. ABDOMEN: soft, nontender. Distended. EXTREMITIES: 1+ edema. PERIPHERAL PULSES: equal. NEUROLOGIC: No gross deficits, AAO X 3 Results Labs and Meds Result diagrams: 01/10/21 05:38 01/13/21 05:49 Lab results: Laboratory Results - last 24 hr 01/12/21 01/12/21 01/13/21 16:08 20:01 05:49 Sodium 144 Potassium 4.0 Chloride 103 Carbon Dioxide 34 H Anion Gap 11 L BUN 44 H Creatinine 1.16 Estim Creat Clear Calc 67.2 Estimated GFR 48 POC Glucose 206 H 203 H Random Glucose 200 H Calcium 8.2 L B-Natriuretic Peptide 01/13/21 01/13/21 01/13/21 05:49 07:15 10:53 Sodium Potassium Chloride Carbon Dioxide Anion Gap BUN Creatinine Estim Creat Clear Calc Estimated GFR POC Glucose 212 H 305 H Random Glucose Calcium B-Natriuretic Peptide 343 H Progress Note: A&P Assessment and plan (1) Acute on chronic congestive heart failure: Status: Acute Assessment and Plan: 60-year-old female with diastolic heart failure presented with volume overload in the setting of noncompliance with diuretics. She has been on IV diuretics and improving. I think we give her 1 dose of metolazone today 30 minutes before the Lasix dose. Blood pressure control is improving. Thank you for allowing me to participate in the care of your patient. Please feel free to contact me if you have any questions. Fall Risk Details Current Medications: Current Medications Generic Name Dose Route Start Last Admin Trade Name Freq PRN Reason Stop Dose Admin Acetaminophen 650 mg 06/23/21 23:18 Acetaminophen 325 Mg Tablet PO Q6H PRN Pain, Mild (Pain Scale 1-3) Albuterol Sulfate 2 puff 01/09/21 23:23 Albuterol Sulfate 90 Mcg 8 Gm Inhaler INHALE Q4H PRN Dyspnea Albuterol/Ipratropium 3 ml 01/09/21 23:18 01/10/21 06:29 Albuterol/Iprat 2.5/0.5mg 3 Ml Ampul.Neb INHALE 3 ml RQ4H WHILE AWAKE PRN Administration Shortness of Breath/Wheezing Amlodipine Besylate 5 mg 01/12/21 10:45 01/13/21 08:15 Amlodipine Besylate 5 Mg Tablet PO 5 mg DAILY HI Administration Protocol Aspirin 81 mg 01/10/21 09:00 01/13/21 08:14 Aspirin Enteric Coated 81 Mg Tablet.Dr PO 81 mg DAILY HI Administration Atorvastatin Calcium 10 mg 01/10/21 21:00 01/12/21 21:10 Atorvastatin Calcium 10 Mg Tablet PO 10 mg BEDTIME HI Administration Dextrose 25 gm 01/09/21 23:24 Dextrose 50 % 25 Gm/50 Ml Vial IVPUSH ONCE PRN hypoglucemia Enoxaparin Sodium 40 mg 01/09/21 23:30 01/12/21 23:04 Enoxaparin Sodium 40 Mg/0.4 Ml Syringe SUBCUT 40 mg Q24H HI Administration Fluoxetine HCl 40 mg 01/10/21 09:00 01/13/21 08:14 Fluoxetine Hcl 20 Mg Capsule PO 40 mg DAILY HI Administration Furosemide 80 mg 01/13/21 18:00 Furosemide 40 Mg/4 Ml Vial IVPUSH BID@0900,1800 [facility] Protocol Gabapentin 400 mg 01/10/21 09:00 01/13/21 08:15 Gabapentin 400 Mg Capsule PO 400 mg TID HI Administration Insulin Glargine 40 unit 01/10/21 21:00 01/12/21 21:09 Insulin Glargine,Hum.Rec.Anlog 100 Unit/Ml 10 Ml Vial SUBCUT 40 unit BEDTIME HI Administration Insulin Human Lispro 0 unit 01/11/21 07:30 01/13/21 11:23 Insulin Lispro 100 Unit/Ml 3 Ml Vial SUBCUT 8 unit QIDACHS HI Administration Protocol Isosorbide Mononitrate 30 mg 01/10/21 09:00 01/13/21 08:15 Isosorbide Mononitrate 30 Mg Tab.Er.24h PO 30 mg DAILY HI Administration Protocol Metoprolol Succinate 50 mg 01/10/21 09:00 01/13/21 08:15 Metoprolol Succinate Er 50 Mg Tab.Er.24h PO 50 mg DAILY HI Administration Protocol Nitroglycerin 0.4 mg 01/09/21 23:18 Nitroglycerin 0.4 Mg Tab.Subl SUBLINGUAL Q5M PRN Chest Pain Omeprazole 20 mg 01/10/21 21:00 01/12/21 21:10 Omeprazole 20 Mg Capsule.Dr PO 20 mg BEDTIME HI Administration Pharmacy Consult 1 each 01/09/21 19:16 Consult Rx Perform Med Rec MISCELLANE ONCE PRN Consult order Pregabalin 100 mg 01/12/21 11:00 01/13/21 08:14 Pregabalin 100 Mg Capsule PO 100 mg BID HI Administration Sodium Chloride 3 ml 01/10/21 00:00 01/13/21 08:19 0.9 % Sodium Chloride Flush 3 Ml Syringe IVFLUSH 3 ml QSHIFT HI Administration Tizanidine HCl 4 mg 01/10/21 21:00 01/12/21 21:11 Tizanidine Hcl 4 Mg Tablet PO 4 mg BEDTIME HI Administration Vitamin D 50 mcg 01/10/21 09:00 01/13/21 08:14 Cholecalciferol (Vitamin D3) 25 Mcg Tablet PO 50 mcg DAILY HI Administration Time Spent With Patient Time: Total time spent is greater than 50% in coordination of care (as documented) at patient's floor/unit and/or counseling patient: Time with patient: 15 - 24 minutes Progress Note: Quality Stroke Does the patient have a stroke diagnosis?: No Procedures Date of Service Date of Service: 01/13/21
--- NOTE | 2021-01-13 15:27 | P.PNIM_ITS ---
Subjective Subjective Date of Service: 01/13/21 Interval History: feels better this morning is still complaining of bilateral ankle pain ongoing for months, feels shortness of breath is better still unable to lie flat due to orthopnea denies chest pain headache or dizziness. ROS [employer] no headache, no dizziness CVS no chest pain, no palpitation GI no nausea, no vomit No urinary burning, no urgency Physical Exam Vital Signs: Vital Signs: Last Vital Signs Temp 98 F 01/13/21 11:13 Pulse 84 01/13/21 11:13 Resp 18 01/13/21 11:13 BP 121/62 01/13/21 11:13 Pulse Ox 92 01/13/21 11:13 Oxygen Flow Rate 2 01/09/21 18:53 Body Mass Index 51.7 Gen no acute distress Neck: supple, no JVD Lungs: rales at bases, no wheeze, no anterior chest wall tenderness with palpation Heart: regular rate and rhythm Abd:morbidly obese, soft, non-tender, non-distended Ext: BLE edema Skin: warm/well-perfused Neuro: alert and oriented x3, no focal findings Psych: appropriate affect Objective Data Current Medications Generic Name Dose Route Start Last Admin Trade Name Freq PRN Reason Stop Dose Admin Acetaminophen 650 mg 01/09/21 23:18 Acetaminophen 325 Mg Tablet PO Q6H PRN Pain, Mild (Pain Scale 1-3) Albuterol Sulfate 2 puff 01/09/21 23:23 Albuterol Sulfate 90 Mcg 8 Gm Inhaler INHALE Q4H PRN Dyspnea Albuterol/Ipratropium 3 ml 01/09/21 23:18 01/10/21 06:29 Albuterol/Iprat 2.5/0.5mg 3 Ml Ampul.Neb INHALE 3 ml RQ4H WHILE AWAKE PRN Administration Shortness of Breath/Wheezing Amlodipine Besylate 5 mg 01/12/21 10:45 01/13/21 08:15 Amlodipine Besylate 5 Mg Tablet PO 5 mg DAILY HI Administration Protocol Aspirin 81 mg 01/10/21 09:00 01/13/21 08:14 Aspirin Enteric Coated 81 Mg Tablet. PO 81 mg DAILY HI Administration Atorvastatin Calcium 10 mg 01/10/21 21:00 01/12/21 21:10 Atorvastatin Calcium 10 Mg Tablet PO 10 mg BEDTIME HI Administration Dextrose 25 gm 01/09/21 23:24 Dextrose 50 % 25 Gm/50 Ml Vial IVPUSH ONCE PRN hypoglucemia Enoxaparin Sodium 40 mg 01/09/21 23:30 01/12/21 23:04 Enoxaparin Sodium 40 Mg/0.4 Ml Syringe SUBCUT 40 mg Q24H HI Administration Fluoxetine HCl 40 mg 01/10/21 09:00 01/13/21 08:14 Fluoxetine Hcl 20 Mg Capsule PO 40 mg DAILY HI Administration Furosemide 80 mg 01/13/21 18:00 Furosemide 40 Mg/4 Ml Vial IVPUSH BID@0900,1800 [facility] Protocol Gabapentin 400 mg 01/10/21 09:00 01/13/21 14:52 Gabapentin 400 Mg Capsule PO 400 mg TID HI Administration Insulin Glargine 40 unit 01/10/21 21:00 01/12/21 21:09 Insulin Glargine,Hum.Rec.Anlog 100 Unit/Ml 10 Ml Vial SUBCUT 40 unit BEDTIME HI Administration Insulin Human Lispro 0 unit 01/11/21 07:30 01/13/21 11:23 Insulin Lispro 100 Unit/Ml 3 Ml Vial SUBCUT 8 unit QIDACHS [facility] Administration Protocol Isosorbide Mononitrate 30 mg 01/10/21 09:00 01/13/21 08:15 Isosorbide Mononitrate 30 Mg Tab.Er.24h PO 30 mg DAILY [facility] Administration Protocol Metolazone 2.5 mg 01/13/21 17:15 Metolazone 2.5 Mg Tablet PO 01/13/21 17:16 ONCE ONE Metoprolol Succinate 50 mg 01/10/21 09:00 01/13/21 08:15 Metoprolol Succinate Er 50 Mg Tab.Er.24h PO 50 mg DAILY [facility] Administration Protocol Nitroglycerin 0.4 mg 01/09/21 23:18 Nitroglycerin 0.4 Mg Tab.Subl SUBLINGUAL Q5M PRN Chest Pain Omeprazole 20 mg 01/10/21 21:00 01/12/21 21:10 Omeprazole 20 Mg Capsule.Dr PO 20 mg BEDTIME [facility] Administration Pharmacy Consult 1 each 01/09/21 19:16 Consult Rx Perform Med Rec MISCELLANE ONCE PRN Consult order Pregabalin 100 mg 01/12/21 11:00 01/13/21 08:14 Pregabalin 100 Mg Capsule PO 100 mg BID HI Administration Sodium Chloride 3 ml 01/10/21 00:00 01/13/21 14:53 0.9 % Sodium Chloride Flush 3 Ml Syringe IVFLUSH 3 ml QSHIFT HI Administration Tizanidine HCl 4 mg 01/10/21 21:00 01/12/21 21:11 Tizanidine Hcl 4 Mg Tablet PO 4 mg BEDTIME HI Administration Vitamin D 50 mcg 01/10/21 09:00 01/13/21 08:14 Cholecalciferol (Vitamin D3) 25 Mcg Tablet PO 50 mcg DAILY HI Administration Labs CBC & Chem 7: 01/10/21 05:38 01/13/21 05:49 Labs: Laboratory Results - last 24 hr 01/12/21 01/12/21 01/13/21 16:08 20:01 05:49 Sodium 144 Potassium 4.0 Chloride 103 Carbon Dioxide 34 H Anion Gap 11 L BUN 44 H Creatinine 1.16 Estim Creat Clear Calc 67.2 Estimated GFR 48 POC Glucose 206 H 203 H Random Glucose 200 H Calcium 8.2 L B-Natriuretic Peptide 01/13/21 01/13/21 01/13/21 05:49 07:15 10:53 Sodium Potassium Chloride Carbon Dioxide Anion Gap BUN Creatinine Estim Creat Clear Calc Estimated GFR POC Glucose 212 H 305 H Random Glucose Calcium B-Natriuretic Peptide 343 H Quality Stroke Does the patient have a stroke diagnosis?: No VTE Prior VTE?: No VTE Risk Level:: Medical - moderate - high VTE Device Contraindication: N/A - Device Ordered VTE Drug Contraindication: N/A - Med Ordered Assessment and Plan (1) Acute on chronic congestive heart failure: Status: Acute (2) Acute respiratory failure with hypoxia and hypercapnia: Status: Acute (3) Hypertension: Status: Acute (4) Diabetes: Status: Acute (5) Obesity hypoventilation syndrome: Status: Acute (6) CKD (chronic kidney disease) stage 3, GFR 30-59 ml/min: Status: Acute (7) NICM (nonischemic cardiomyopathy): Status: Acute (8) Morbid obesity: Status: Acute (9) Diabetic neuropathy, painful: Status: Acute Assessment and Plan: 60yo F with CHF [mildly reduced LVEF 40% and grade I diastolic dysfunction on TTE 11/23], HTN, HLD, DM2 + neuropathy, chronic pain, DANIEL/OHS, asthma presenting with dyspnea/chest discomfort, 17kg above baseline weight # acute on chronic combined systolic/diastolic CHF exacerbation - denies shortness of breath or chest pain but appears hypervolemic with persistent orthopnea - will continue furosemide 80 mg IV bid; monitor daily weights,follow I/O, BNP worse than yesterday, is stable renal function,BMP, Mg; greater than 9 L negative - continue Imdur, and metoprolol succinate - troponins flat, case discussed with Dr. Hebert he agrees with above treatment. continue to follow electrolytes and renal function # acute hypoxic resp failure - oxygenation improved currently room air 93%, not on home oxygen # hyperK - resolved # HTN - continue metoprolol succinate, Imdur; hold amlodipine for soft BP # DANIEL - CPAP # HLD - continue statin # asthma, not in acute exacerbation - prn nebulizer treatments # DM2 - basal/bolus insulin # neuropathy - patient being followed closely by primary care physician will continue gabapentin and Lyrica, explained therapeutic duplication recommend follow-up with PCP # mood disorder - continue fluoxetine # VTE ppx - LMWH
[2021-01-13 16:18] LABS: Glucose, Whole Blood 214 mg/dL (60-115)
[2021-01-13] MEDS: metOLazone 2.5 MG TABLET PO (17:21)
[2021-01-13] MEDS: Furosemide 40 MG/4 ML VIAL 80 MG IVPUSH (18:16)
[2021-01-13 20:52] LABS: Glucose, Whole Blood 300 mg/dL (60-115)
[2021-01-13] MEDS: Insulin Glargine,Hum.rec.anlog 100 UNIT/ML 10 ML VIAL 40 UNIT SUBCUT (21:09)
[2021-01-13] MEDS: Atorvastatin Calcium 10 MG TABLET PO (21:10)
[2021-01-13] MEDS: Omeprazole 20 MG CAPSULE.DR PO (21:10)
[2021-01-13] MEDS: TiZANidine HCL 4 MG TABLET PO (21:10)
[2021-01-13] MEDS: Enoxaparin Sodium 40 MG/0.4 ML SYRINGE SUBCUT (22:38)
--- NOTE | 2021-01-13 23:01 | PC.NURSE ---
Pt noted to be noncompliant with CPAP at night. Pt stated she did not wear it last night because no one explained to her why she needed it. This RN explained the importance of the CPAP and how it works. Respiratory at bedside to further explain. Pt stated she is willing to try it but will not put it on now due to being wide awake most of the night. Will continue to monitor incase pt decides to wear it. Currently satting 94% on 0.5L NC.
[2021-01-14] VITALS (9 sets, daily range): BP systolic 111–158; BP diastolic 59–71; PULSE 71–81; RESP 17–22; TEMP 36–36.4; O2SAT 90–96; BMI 51.7
[2021-01-14 07:11] LABS: Anion Gap 11 (12-20); Blood Urea Nitrogen 51 mg/dL (9-16); Calcium 8.6 mg/dL (8.4-10.2); Carbon Dioxide 35 mmol/L (22-29); Chloride 101 mmol/L (96-108); Creatinine Clr Calc Pharmacy 54.4; Estimated Glomerular Filt Rate 38; Glucose Random 216 mg/dL (60-115); Potassium 4.4 mmol/L (3.3-5.1); Sodium 143 mmol/L (135-145)
[2021-01-14 07:52] LABS: Glucose, Whole Blood 186 mg/dL (60-115)
[2021-01-14] MEDS: Insulin Lispro 100 UNIT/ML 3 ML VIAL SUBCUT ×4 (08:01→20:14)
[2021-01-14] MEDS: 0.9 % Sodium Chloride Flush 3 ML SYRINGE IVFLUSH ×3 (08:01→23:24)
[2021-01-14] MEDS: Isosorbide Mononitrate 30 MG TAB.ER.24H PO (08:02)
[2021-01-14] MEDS: FLUoxetine HCl 20 MG CAPSULE 40 MG PO (08:02)
[2021-01-14] MEDS: Furosemide 40 MG/4 ML VIAL 80 MG IVPUSH (08:02)
[2021-01-14] MEDS: Cholecalciferol (Vitamin D3) 25 MCG TABLET 50 MCG PO (08:02)
[2021-01-14] MEDS: Aspirin Enteric Coated 81 MG TABLET.DR PO (08:03)
[2021-01-14] MEDS: Metoprolol Succinate ER 50 MG TAB.ER.24H PO (08:03)
[2021-01-14] MEDS: Pregabalin 100 MG CAPSULE PO ×2 (08:03→20:13)
[2021-01-14] MEDS: amLODIPine Besylate 5 MG TABLET PO (08:03)
[2021-01-14] MEDS: Gabapentin 400 MG CAPSULE PO ×3 (08:03→20:13)
[2021-01-14 11:03] LABS: Glucose, Whole Blood 221 mg/dL (60-115)
--- NOTE | 2021-01-14 12:58 | P.PNCA_ITS ---
Subjective Subjective Date of Service: 01/14/21 <LYNNE aGytan - Last Filed: 01/14/21 13:21> 01/14/21 <Joaquín Hunter MD - Last Filed: 01/14/21 17:05> Principal diagnosis: CHF <LYNNE Gaytan - Last Filed: 01/14/21 13:21> Interval history: Cardiology follow up for CHF. Seen at 0830. Today she is observed laying in bed without distress. She reports needing the O2 during the night as she felt like she needed it. Her breathing is comfortable at present. She admits to being fearful about having acute sob again, like when she was admitted. No chest discomfort, palpitation, dizziness. She says her leg edema has improved but some still present. Gets OOB to commode and is steady on feet. <GRAHAM Gaytan - Last Filed: 01/14/21 13:21> Review of Systems Review of Systems as above <LYNNE Gaytan - Last Filed: 01/14/21 13:21> Yes all other systems are reviewed and are negative <LYNNE Gaytan - Last Filed: 01/14/21 13:21> Physical Exam Vital Signs: Last Vital Signs Temp 97.0 F 01/14/21 11:13 Pulse 74 01/14/21 11:13 Resp 22 H 01/14/21 11:13 BP 143/63 H 01/14/21 11:13 Pulse Ox 95 01/14/21 11:13 Oxygen Flow Rate 2 01/09/21 18:53 Body Mass Index 51.7 <LYNNE Gaytan - Last Filed: 01/14/21 13:21> Const General: cooperative, no acute distress, alert and awake <LYNNE Gaytan - Last Filed: 01/14/21 13:21> Orientation/consciousness: patient oriented x3 <LYNNE Gaytan Last Filed: 01/14/21 13:21> Neck Other: obese - difficult to assess for JVD <LYNNE Gaytan - Last Filed: 01/14/21 13:21> Resp Other: Rales noted in lower lobes. Wearing O2 with nasal cannula <Sandra LeyvaGRAHAMC - Last Filed: 01/14/21 13:21> Effort & Inspection: normal respiratory effort, able to speak in complete sentences and not labored <Sandra LeyvaGRAHAMC - Last Filed: 01/14/21 13:21> Auscultation: clear to auscultation bilaterally, no rhonchi and no wheezes <Sandra LeyvaNINFAKristenC - Last Filed: 01/14/21 13:21> Cardio Palpation: normal PMI <Sandra LeyvaNINFAC - Last Filed: 01/14/21 13:21> Rate: regular rate <Sandra LeyvaNINFAC - Last Filed: 01/14/21 13:21> Rhythm: regular rhythm <Sandra LeyvaNINFA - Last Filed: 01/14/21 13:21> Heart sounds: S1 normal heart sound present and S2 normal heart sound present <Sandra DouglassNINFA prajapatiKristenC - Last Filed: 01/14/21 13:21> Peripheral pulses: Peripheral pulses 2+ throughout <Sandra LeyvaNINFA-C - Last Filed: 01/14 13:21> GI Other: large round, nontender <Sandra LeyvaNINFAKristenC - Last Filed: 01/14/21 13:21> Inspection: Yes normal to inspection (her normal ) <Sandra LeyvaGRAHAMC - Last Filed: 01/14/21 13:21> Neuro General: patient oriented x3 <Sandra Oden GRAHAM LeyvaC - Last Filed: 01/14/21 13:21> Extrem Other: obesity, legs soft without apparent fluid in tissue <Sandra LeyvaNINFA-C - Last Filed: 01/14/21 13:21> Results Labs and Meds Result diagrams: : 01/10/21 05:38 01/14/21 05:58 <Sandra Oden GRAHAM LeyvaC - Last Filed: 01/14/21 13:21> Lab results: Laboratory Results - last 24 hr 01/13/21 01/13/21 01/14/21 16:11 20:24 05:58 Sodium 143 Potassium 4.4 Chloride 101 Carbon Dioxide 35 H Anion Gap 11 L BUN 51 H Creatinine 1.43 H Estim Creat Clear Calc 54.4 Estimated GFR 38 POC Glucose 214 H 300 H Random Glucose 216 H Calcium 8.6 01/14/21 01/14/21 07:49 10:54 Sodium Potassium Chloride Carbon Dioxide Anion Gap BUN Creatinine Estim Creat Clear Calc Estimated GFR POC Glucose 186 H 221 H Random Glucose Calcium <LYNNE Gaytan - Last Filed: 01/14/21 13:21> Imaging Radiologist's impression: Impressions Chest X-Ray 01/14/21 11:57 IMPRESSION: Stable enlargement of the cardiac silhouette. Improved pulmonary edema from 01/09/2021 exam. <LYNNE Gaytan - Last Filed: 01/14/21 13:21> Progress Note: A&P Assessment and plan (1) Acute on chronic combined systolic and diastolic CHF (congestive heart failure): Status: Acute <LYNNE Gaytan - Last Filed: 01/14/21 13:21> Assessment and Plan: Admit with increased sob, edema after stopping home lasix. Admit in November 2020 also for CHF. Hx of nonischemic CMP with prior known EF 50-55%. Echo last month with EF 40-45%, grade I diastolic dysfunction, wall motion abnor mality with regionality inferior/ inferiorlateral wall. Cardiac cath in 2017 was normal. This admit, Being diuresed with IV Lasix and was given one dose of Metolazone 2.5mg yesterday. Fluid balance neg 8.3 liters. BNPs have remained somewhat flat. Breathing has improved. Still wearing 02 with cannula, sat 95% on 0.5liters. Reports orthopnea in night and O2 helped. On exam, difficult to assess for fluid overload due to obesity. Does have some rales in bases which could be related to atelectasis. Cr 1.16 yesterday and up to 1.43 today. Has hx of FELICIA with diuresing in past. Did get her Lasix IV dose this am. Now stopped. - Will check CXR for comparison to admit. Will start Bumex 2mg po bid t omorrow.Ongoing strict I+O monitoring. Close monitoring of electrolyte and kidney function. BMP, BNP in am. Recommend incentive spirometry use. Get out of bed and sit up in chair. O2 use as needed for sat >90%. Reported hx of DANIEL which is untreated. This may be contributing to her heart failure exacerbations and reduced EF. Will need outpt sleep study to further eval.- we will arrange. She is a good candidate for Cardiomems monitoring system to help with prevention of recurrent HF admission and assist with outpt HF managment. Dr Hunter spent time going over this with her and she is agreeable. Will be discussed further as outpt. We will continue to follow. <LYNNE Gaytan - Last Filed: 01/14/21 13:21> (2) Obesity hypoventilation syndrome: Status: Acute <GRAHAM GaytanC - Last Filed: 01/14/21 13:21> (3) DANIEL (obstructive sleep apnea): Status: Acute <LYNNE Gaytan - Last Filed: 01/14/21 13:21> (4) CKD (chronic kidney disease) stage 3, GFR 30-59 ml/min: Status: Acute <GRAHAM GaytanC - Last Filed: 01/14/21 13:21> (5) NICM (nonischemic cardiomyopathy): Status: Acute <GRAHAM GaytanC - Last Filed: 01/14/21 13:21> Assessment and Plan: follows with Dr Szymanski as outpt <LYNNE Gaytan - Last Filed: 01/14/21 13:21> (6) Morbid obesity: Status: Acute <GRAHAM GaytanC - Last Filed: 01/14/21 13:21> (7) Acute on chronic congestive heart failure: Status: Acute <GRAHAM GaytanC - Last Filed: 01/14/21 13:21> Assessment and Plan: Patient seen and examined. Case discussed with Sadnra. Patient was given metolazone yesterday, noted slight bump in creatinine. Blood pressure is better controlled. Overnight she had low oxygen level and was started on oxygen therapy. She remains short of breath with exertion. Overall otherwise not having trouble breathing lying flat. Over all negative balance of 8 L. overall volume status is difficult to assess due to a significant obesity. Continue Lasix 80 mg IV b.i.d.. Strict intake and output chart. Continue to trend BMP. Continue aggressive control of her blood pressure. She needs outpatient workup for sleep apnea given her prior history of sleep apnea and her body habitus and on and off LV systolic dysfunction. I think given her recurrent hospitalization with heart failure and difficult to assess volume status would be a good candidate for CardioMEMS device. Will follow with the patient. <Joaquín Hunter MD - Last Filed: 01/14/21 17:05> Fall Risk Details Current Medications: Current Medications Generic Name Dose Route Start Last Admin Trade Name Freq PRN Reason Stop Dose Admin Acetaminophen 650 mg 01/09/21 23:18 Acetaminophen 325 Mg Tablet PO Q6H PRN Pain, Mild (Pain Scale 1-3) Albuterol Sulfate 2 puff 01/09/21 23:23 Albuterol Sulfate 90 Mcg 8 Gm Inhaler INHALE Q4H PRN Dyspnea Albuterol/Ipratropium 3 ml 01/09/21 23:18 01/10/21 06:29 Albuterol/Iprat 2.5/0.5mg 3 Ml Ampul.Neb INHALE 3 ml RQ4H WHILE AWAKE PRN Administration Shortness of Breath/Wheezing Amlodipine Besylate 5 mg 01/12/21 10:45 01/14/21 08:03 Amlodipine Besylate 5 Mg Tablet PO 5 mg DAILY [facility] Administration Protocol Aspirin 81 mg 01/10/21 09:00 01/14/21 08:03 Aspirin Enteric Coated 81 Mg Tablet. PO 81 mg DAILY HI Administration Atorvastatin Calcium 10 mg 01/10/21 21:00 01/13/21 21:10 Atorvastatin Calcium 10 Mg Tablet PO 10 mg BEDTIME HI Administration Bumetanide 2 mg 01/15/21 08:00 Bumetanide 1 Mg Tablet PO BID@0800,1700 [facility] Protocol Dextrose 25 gm 01/09/21 23:24 Dextrose 50 % 25 Gm/50 Ml Vial IVPUSH ONCE PRN hypoglucemia Enoxaparin Sodium 40 mg 01/09/21 23:30 01/13/21 22:38 Enoxaparin Sodium 40 Mg/0.4 Ml Syringe SUBCUT 40 mg Q24H HI Administration Fluoxetine HCl 40 mg 01/10/21 09:00 01/14/21 08:02 Fluoxetine Hcl 20 Mg Capsule PO 40 mg DAILY [facility] Administration Gabapentin 400 mg 01/10/21 09:00 01/14/21 08:03 Gabapentin 400 Mg Capsule PO 400 mg TID HI Administration Insulin Glargine 40 unit 01/10/21 21:00 01/13/21 21:09 Insulin Glargine,Hum.Rec.Anlog 100 Unit/Ml 10 Ml Vial SUBCUT 40 unit BEDTIME HI Administration Insulin Human Lispro 0 unit 01/11/21 07:30 01/14/21 11:37 Insulin Lispro 100 Unit/Ml 3 Ml Vial SUBCUT 4 unit QIDACHS [facility] Administration Protocol Isosorbide Mononitrate 30 mg 01/10/21 09:00 01/14/21 08:02 Isosorbide Mononitrate 30 Mg Tab.Er.24h PO 30 mg DAILY [facility] Administration Protocol Metoprolol Succinate 50 mg 01/10/21 09:00 01/14/21 08:03 Metoprolol Succinate Er 50 Mg Tab.Er.24h PO 50 mg DAILY [facility] Administration Protocol Nitroglycerin 0.4 mg 01/09/21 23:18 Nitroglycerin 0.4 Mg Tab.Subl SUBLINGUAL Q5M PRN Chest Pain Omeprazole 20 mg 01/10/21 21:00 01/13/21 21:10 Omeprazole 20 Mg Capsule.Dr PO 20 mg BEDTIME HI Administration Pharmacy Consult 1 each 01/09/21 19:16 Consult Rx Perform Med Rec MISCELLANE ONCE PRN Consult order Pregabalin 100 mg 01/12/21 11:00 01/14/21 08:03 Pregabalin 100 Mg Capsule PO 100 mg BID HI Administration Sodium Chloride 3 ml 01/10/21 00:00 01/14/21 08:01 0.9 % Sodium Chloride Flush 3 Ml Syringe IVFLUSH 3 ml QSHIFT HI Administration Tizanidine HCl 4 mg 01/10/21 21:00 01/13/21 21:10 Tizanidine Hcl 4 Mg Tablet PO 4 mg BEDTIME HI Administration Vitamin D 50 mcg 01/10/21 09:00 01/14/21 08:02 Cholecalciferol (Vitamin D3) 25 Mcg Tablet PO 50 mcg DAILY HI Administration <LYNNE Gaytan - Last Filed: 01/14/21 13:21> Time Spent With Patient Time: Total time spent is greater than 50% in coordination of care (as documented) at patient's floor/unit and/or counseling patient: 24 <LYNNE Gaytan - Last Filed: 01/14/21 13:21> Time with patient: 15 - 24 minutes <LYNNE Gaytan - Last Filed: 01/14/21 13:21> Progress Note: Quality Stroke Does the patient have a stroke diagnosis?: No <LYNNE Gaytan - Last Filed: 01/14/21 13:21> Procedures Date of Service Date of Service: 01/14/21 <LYNNE Gaytan - Last Filed: 01/14/21 13:21>
--- NOTE | 2021-01-14 15:28 | P.PNIM_ITS ---
Subjective Subjective Date of Service: 01/14/21 Interval History: sitting comfortably denies shortness of breath, no chest pain, no other acute issues ,overnight placed on oxygen since oxygen noted to be 89% last night. complaining also of persistent ankle pain. [employer] no headache, no dizziness CVS no chest pain, no palpitation GI no nausea, no vomit No urinary burning, no urgency Physical Exam Vital Signs: Vital Signs: Last Vital Signs Temp 96.8 F 01/14/21 15:09 Pulse 78 01/14/21 15:09 Resp 20 01/14/21 15:09 BP 111/60 01/14/21 15:09 Pulse Ox 90 L 01/14/21 15:09 Oxygen Flow Rate 2 01/09/21 18:53 Body Mass Index 51.7 Gen no acute distress Neck: supple, no JVD Lungs: Fine rales at bases, no wheeze, no anterior chest wall tenderness with palpation Heart: regular rate and rhythm Abd:morbidly obese, soft, non-tender, non-distended Ext: no pitting edema noted today, normal ankle exam. Skin: warm/well-perfused Neuro: alert and oriented x3, no focal findings Psych: appropriate affect Objective Data Current Medications Generic Name Dose Route Start Last Admin Trade Name Freq PRN Reason Stop Dose Admin Acetaminophen 650 mg 01/09/21 23:18 Acetaminophen 325 Mg Tablet PO Q6H PRN Pain, Mild (Pain Scale 1-3) Albuterol Sulfate 2 puff 01/09/21 23:23 Albuterol Sulfate 90 Mcg 8 Gm Inhaler INHALE Q4H PRN Dyspnea Albuterol/Ipratropium 3 ml 01/09/21 23:18 01/10/21 06:29 Albuterol/Iprat 2.5/0.5mg 3 Ml Ampul.Neb INHALE 3 ml RQ4H WHILE AWAKE PRN Administration Shortness of Breath/Wheezing Amlodipine Besylate 5 mg 01/12/21 10:45 01/14/21 08:03 Amlodipine Besylate 5 Mg Tablet PO 5 mg DAILY HI Administration Protocol Aspirin 81 mg 01/10/21 09:00 01/14/21 08:03 Aspirin Enteric Coated 81 Mg Tablet. PO 81 mg DAILY HI Administration Atorvastatin Calcium 10 mg 01/10/21 21:00 01/13/21 21:10 Atorvastatin Calcium 10 Mg Tablet PO 10 mg BEDTIME HI Administration Bumetanide 2 mg 01/15/21 08:00 Bumetanide 1 Mg Tablet PO BID@0800,1700 [facility] Protocol Dextrose 25 gm 01/09/21 23:24 Dextrose 50 % 25 Gm/50 Ml Vial IVPUSH ONCE PRN hypoglucemia Enoxaparin Sodium 40 mg 01/09/21 23:30 01/13/21 22:38 Enoxaparin Sodium 40 Mg/0.4 Ml Syringe SUBCUT 40 mg Q24H HI Administration Fluoxetine HCl 40 mg 01/10/21 09:00 01/14/21 08:02 Fluoxetine Hcl 20 Mg Capsule PO 40 mg DAILY HI Administration Gabapentin 400 mg 01/10/21 09:00 01/14/21 13:55 Gabapentin 400 Mg Capsule PO 400 mg TID HI Administration Insulin Glargine 40 unit 01/10/21 21:00 01/13/21 21:09 Insulin Glargine,Hum.Rec.Anlog 100 Unit/Ml 10 Ml Vial SUBCUT 40 unit BEDTIME [facility] Administration Insulin Human Lispro 0 unit 01/11/21 07:30 01/14/21 11:37 Insulin Lispro 100 Unit/Ml 3 Ml Vial SUBCUT 4 unit QIDACHS [facility] Administration Protocol Isosorbide Mononitrate 30 mg 01/10/21 09:00 01/14/21 08:02 Isosorbide Mononitrate 30 Mg Tab.Er.24h PO 30 mg DAILY [facility] Administration Protocol Metoprolol Succinate 50 mg 01/10/21 09:00 01/14/21 08:03 Metoprolol Succinate Er 50 Mg Tab.Er.24h PO 50 mg DAILY [facility] Administration Protocol Nitroglycerin 0.4 mg 01/09/21 23:18 Nitroglycerin 0.4 Mg Tab.Subl SUBLINGUAL Q5M PRN Chest Pain Omeprazole 20 mg 01/10/21 21:00 01/13/21 21:10 Omeprazole 20 Mg Capsule.Dr PO 20 mg BEDTIME [facility] Administration Pharmacy Consult 1 each 01/09/21 19:16 Consult Rx Perform Med Rec MISCELLANE ONCE PRN Consult order Pregabalin 100 mg 01/12/21 11:00 01/14/21 08:03 Pregabalin 100 Mg Capsule PO 100 mg BID HI Administration Sodium Chloride 3 ml 01/10/21 00:00 01/14/21 08:01 0.9 % Sodium Chloride Flush 3 Ml Syringe IVFLUSH 3 ml QSHIFT IH Administration Tizanidine HCl 4 mg 01/10/21 21:00 01/13/21 21:10 Tizanidine Hcl 4 Mg Tablet PO 4 mg BEDTIME HI Administration Vitamin D 50 mcg 01/10/21 09:00 01/14/21 08:02 Cholecalciferol (Vitamin D3) 25 Mcg Tablet PO 50 mcg DAILY HI Administration Labs CBC & Chem 7: 01/10/21 05:38 01/14/21 05:58 Labs: Laboratory Results - last 24 hr 01/13/21 01/13/21 01/14/21 16:11 20:24 05:58 Sodium 143 Potassium 4.4 Chloride 101 Carbon Dioxide 35 H Anion Gap 11 L BUN 51 H Creatinine 1.43 H Estim Creat Clear Calc 54.4 Estimated GFR 38 POC Glucose 214 H 300 H Random Glucose 216 H Calcium 8.6 01/14/21 01/14/21 07:49 10:54 Sodium Potassium Chloride Carbon Dioxide Anion Gap BUN Creatinine Estim Creat Clear Calc Estimated GFR POC Glucose 186 H 221 H Random Glucose Calcium Quality Stroke Does the patient have a stroke diagnosis?: No VTE Prior VTE?: No VTE Risk Level:: Medical - moderate - high VTE Device Contraindication: N/A - Device Ordered VTE Drug Contraindication: N/A - Med Ordered Assessment and Plan (1) Acute on chronic congestive heart failure: Status: Acute (2) Hypertension: Status: Acute (3) Diabetes: Status: Acute (4) Obesity hypoventilation syndrome: Status: Acute (5) CKD (chronic kidney disease) stage 3, GFR 30-59 ml/min: Status: Acute (6) Acute on chronic combined systolic and diastolic CHF (congestive heart failure): Status: Acute (7) Morbid obesity: Status: Acute Assessment and Plan: 60yo F with CHF [mildly reduced LVEF 40% and grade I diastolic dysfunction on TTE 11/23], HTN, HLD, DM2 + neuropathy, chronic pain, DANIEL/OHS, asthma presenting with dyspnea/chest discomfort, 17kg above baseline weight # acute on chronic combined systolic/diastolic CHF exacerbation - denies shortness of breath or chest pain, appears euvolemic this am Labs showed rising creatinine, will DC IV Lasix, follow labs at a.m., case discussed with Cardiology difficult to assess fluid status noted to have hypoxemia likely related to atelectasis, will encourage incent kip spirometry recommend out of bed to chair and ambulation - is greater than 8 L negative since admit will continue to monitor daily weights,follow I/O, BMP, Mg - continue Imdur, and metoprolol succinate # acute hypoxic resp failure - noted to have mild hypoxia overnight, therefore placed back on oxygen Will continue to monitor oxygenation use and will do home O2 eval upon discharge, encourage incentive spirometry. # hyperK - resolved # HTN - continue metoprolol succinate, Imdur and resume amlodipine since noted to have elevated BP # DANIEL - CPAP # HLD - continue statin # asthma, not in acute exacerbation - prn nebulizer treatments # DM2 - basal/bolus insulin # neuropathy - patient being followed closely by primary care physician will continue gabapentin and Lyrica, explained therapeutic duplication recommend follow-up with PCP # mood disorder - continue fluoxetine # VTE ppx - LMWH
[2021-01-14 16:13] LABS: Glucose, Whole Blood 229 mg/dL (60-115)
--- NOTE | 2021-01-14 16:15 | PC.NURSE ---
Skin Assessment completed today. No skin issues were found. Skin intact and dry.
[2021-01-14 19:57] LABS: Glucose, Whole Blood 198 mg/dL (60-115)
[2021-01-14] MEDS: TiZANidine HCL 4 MG TABLET PO (20:13)
[2021-01-14] MEDS: Atorvastatin Calcium 10 MG TABLET PO (20:13)
[2021-01-14] MEDS: Omeprazole 20 MG CAPSULE.DR PO (20:13)
[2021-01-14] MEDS: Insulin Glargine,Hum.rec.anlog 100 UNIT/ML 10 ML VIAL 40 UNIT SUBCUT (20:15)
[2021-01-14] MEDS: Enoxaparin Sodium 40 MG/0.4 ML SYRINGE SUBCUT (22:41)
[2021-01-15 03:43] VITALS: BP 124/61; PULSE 78; RESP 18; TEMP 36.1; O2SAT 93
[2021-01-15 05:31] VITALS: BMI 52.4
[2021-01-15 06:42] LABS: Anion Gap 13 (12-20); Blood Urea Nitrogen 57 mg/dL (9-16); Calcium 8.2 mg/dL (8.4-10.2); Carbon Dioxide 33 mmol/L (22-29); Chloride 100 mmol/L (96-108); Creatinine Clr Calc Pharmacy 54.8; Estimated Glomerular Filt Rate 38; Glucose Random 235 mg/dL (60-115); Potassium 4.4 mmol/L (3.3-5.1); Sodium 142 mmol/L (135-145)
[2021-01-15 06:46] LABS: B Type Natriuretic Peptide 167 pg/mL (<100)
[2021-01-15 07:33] LABS: Glucose, Whole Blood 223 mg/dL (60-115)
[2021-01-15 07:42] VITALS: BP 135/70; PULSE 73; RESP 20; TEMP 36.1; O2SAT 94
[2021-01-15] MEDS: Insulin Lispro 100 UNIT/ML 3 ML VIAL SUBCUT ×4 (07:54→20:44)
[2021-01-15] MEDS: Aspirin Enteric Coated 81 MG TABLET.DR PO (07:55)
[2021-01-15] MEDS: FLUoxetine HCl 20 MG CAPSULE 40 MG PO (07:55)
[2021-01-15] MEDS: Metoprolol Succinate ER 50 MG TAB.ER.24H PO (07:55)
[2021-01-15] MEDS: 0.9 % Sodium Chloride Flush 3 ML SYRINGE IVFLUSH ×3 (07:55→23:30)
[2021-01-15] MEDS: amLODIPine Besylate 5 MG TABLET PO (07:55)
[2021-01-15] MEDS: Isosorbide Mononitrate 30 MG TAB.ER.24H PO (07:55)
[2021-01-15] MEDS: Gabapentin 400 MG CAPSULE PO ×3 (07:55→20:43)
[2021-01-15] MEDS: Pregabalin 100 MG CAPSULE PO ×2 (07:56→20:43)
[2021-01-15] MEDS: Cholecalciferol (Vitamin D3) 25 MCG TABLET 50 MCG PO (07:56)
[2021-01-15] MEDS: Bumetanide 1 MG TABLET 2 MG PO (07:57)
--- NOTE | 2021-01-15 09:04 | P.PNCA_ITS ---
Subjective Subjective Date of Service: 01/15/21 <LYNNE Gaytan - Last Filed: 01/15/21 10:20> 01/15/21 <Joaquín Hunter MD - Last Filed: 01/15/21 10:43> Principal diagnosis: CHF <LYNNE Gaytan - Last Filed: 01/15/21 10:20> Interval history: Cardiology follow up for CHF. Seen at 0815. Today she is laying in bed without distress. Reports that her breathing is better than admission. She is wearing O2 with nasal cannula and is fearful of having recurrent sob. No chest pains, palpitation, dizziness. Reports her ankles are hurting her today. Swelling improved. Has been up to commode. <LYNNE Gaytan - Last Filed: 01/15/21 10:20> Review of Systems Review of Systems as above <LYNNE Gaytan - Last Filed: 01/15/21 10:20> Yes all other systems are reviewed and are negative <LYNNE Gaytan - Last Filed: 01/15/21 10:20> Physical Exam Vital Signs: Last Vital Signs Temp 97.0 F 01/15/21 07:42 Pulse 73 01/15/21 07:42 Resp 20 01/15/21 07:42 BP 135/70 01/15/21 07:42 Pulse Ox 94 01/15/21 07:42 Oxygen Flow Rate 2 01/09/21 18:53 Body Mass Index 52.4 <LYNNE Gaytan - Last Filed: 01/15/21 10:20> Const General: cooperative, no acute distress, alert and awake <LYNNE Gaytan - Last Filed: 01/15/21 10:20> Orientation/consciousness: patient oriented x3 <LYNNE Gaytan - Last Filed: 01/15/21 10:20> Neck Other: obese, difficult to assess for JVD <LYNNE Gaytan - Last Filed: 01/15/21 10:20> Resp Other: coarse bases, improve with deep breath and cough <LYNNE Gaytan - Last Filed: 01/15/21 10:20> Effort & Inspection: normal respiratory effort, able to speak in complete sentences and not labored <Sandra LeyvaNINFA-C - Last Filed: 01/15/21 10:20> Auscultation: clear to auscultation bilaterally, no rhonchi and no wheezes <Sandra LeyvaNINFA-C - Last Filed: 01/15/21 10:20> Cardio Palpation: normal PMI <Sandra LeyvaNINFA-C - Last Filed: 01/15/21 10:20> Rate: regular rate <Sandra Leyva [employer]-C - Last Filed: 01/15/21 10:20> Rhythm: regular rhythm <Sandra LeyvaNINFA-C - Last Filed: 01/15/21 10:20> Heart sounds: S1 normal heart sound present and S2 normal heart sound present <Sandra LeyvaNINFA-C - Last Filed: 01/15/21 10:20> Peripheral pulses: Peripheral pulses 2+ throughout <Sandra LeyvaNINFA-C - Last Filed: 01/15/21 10:20> GI Other: obese, round, nontender <Sandra LeyvaNINFA-C - Last Filed: 01/15/21 10:20> Neuro General: patient oriented x3 <Sandra LeyvaNINFA-C - Last Filed: 01/15/21 10:20> Extrem Other: soft, obese, no significant pitting edema. <Sandra LeyvaNINFA-C - Last Filed: 01/15/21 10:20> Results Labs and Meds Result diagrams: : 01/10/21 05:38 01/15/21 05:18 <Sandra LeyvaNINFA-C - Last Filed: 01/15/21 10:20> Lab results: Laboratory Results - last 24 hr 01/14/21 01/14/21 01/14/21 10:54 16:08 19:53 Sodium Potassium Chloride Carbon Dioxide Anion Gap BUN Creatinine Estim Creat Clear Calc Estimated GFR POC Glucose 221 H 229 H 198 H Random Glucose Fasting Glucose Calcium B-Natriuretic Peptide 01/15/21 01/15/21 01/15/21 05:18 05:18 05:18 Sodium Cancelled 142 Potassium Cancelled 4.4 Chloride Cancelled 100 Carbon Dioxide Cancelled 33 H Anion Gap Cancelled 13 BUN Cancelled 57 H Creatinine Cancelled 1.43 H Estim Creat Clear Calc Cancelled 54.8 Estimated GFR Cancelled 38 POC Glucose Random Glucose 235 H Fasting Glucose Cancelled Calcium Cancelled 8.2 L B-Natriuretic Peptide Cancelled 01/15/21 01/15/21 05:18 07:20 Sodium Potassium Chloride Carbon Dioxide Anion Gap BUN Creatinine Estim Creat Clear Calc Estimated GFR POC Glucose 223 H Random Glucose Fasting Glucose Calcium B-Natriuretic Peptide 167 H <LYNNE Gaytan - Last Filed: 01/15/21 10:20> Imaging Radiologist's impression: Impressions Chest X-Ray 01/14/21 11:57 IMPRESSION: Stable enlargement of the cardiac silhouette. Improved pulmonary edema from 01/09/2021 exam. <LYNNE Gaytan - Last Filed: 01/15/21 10:20> Progress Note: A&P Assessment and plan (1) Acute on chronic combined systolic and diastolic CHF (congestive heart failure): Status: Acute <LYNNE Gaytan - Last Filed: 01/15/21 10:20> Assessment and Plan: Admit with increased sob, edema after stopping home lasix due to frequent urination. NYHA Class III. Admit in November 2020 also for CHF. Hx of nonischemic CMP with prior known EF 50-55%. Echo last month with EF 40-45%, grade I diastolic dysfunction, wall motion abnormality with regionality inferior/ inferiorlateral wall. Cardiac cath in 2017 was normal. This admit, was diuresed with IV Lasix and was given one dose of Metolazone 2.5mg 01/13. Fluid balance neg 10.5 liters. BNP 01/13 343 and today down to 167. Breathing has improved. Still wearing 02 with cannula, sat 94% on 0.5liters. On exam, difficult to assess for fluid overload due to obesity. CXR yesterday shows improved pulmonary edema, no pleural effusions. Cr stable at 1.43 yest and today. Has hx of FELICIA with diuresing in past. Started on po Bumex today, will reduce back to 2mg once daily. Will add Aldactone 12.5mg daily. Can be discharged from a cardiology perspective. We will arrange for OV, labs in 1 week. CardioMems device, procedure reviewed with her and she is agreeable to proceed. Will arrange for outpt placement and monitoring. This will help to prevent recurrent HF admissions and assist with outpt HF management. Outpt sleep study will be ordered. Wean off O2. Assess for home O2 if warranted. <LYNNE Quintanilla Ch - Last Filed: 01/15/21 10:20> (2) NICM (nonischemic cardiomyopathy): Status: Acute <GRAHAM GaytanC - Last Filed: 01/15/21 10:20> Assessment and Plan: Follows with Dr Szymanski as outpt <GRAHAM GaytanC - Last Filed: 01/15/21 10:20> (3) Morbid obesity: Status: Acute <GRAHAM GaytanC - Last Filed: 01/15/21 10:20> (4) DANIEL (obstructive sleep apnea): Status: Acute <GRAHAM GaytanC - Last Filed: 01/15/21 10:20> (5) CKD (chronic kidney disease) stage 3, GFR 30-59 ml/min: Status: Acute <GRAHAM GaytanC - Last Filed: 01/15/21 10:20> (6) Hypertension: Status: Acute <LYNNE Gaytan - Last Filed: 01/15/21 10:20> Assessment and Plan: Good Bp control at present. Continue current mgt with Imdur, Metoprolol, Amlodipine and now aldactone. Further med adjustments for HF/ HTN will be done as outpt. <LYNNE Gaytan - Last Filed: 01/15/21 10:20> (7) Congestive heart failure: Status: Acute <Sandra Leyva NP-C - Last Filed: 01/15/21 10:20> Assessment and Plan: patient seen and examined. Case discussed with Sandra. Patient is still in bed. Laying flat. No symptoms of shortness of breath. She has diuresed overall 10 L. Her BNP is significantly reduced greater than 50%. Her creatinine is stable at 1.4. She needs sleep apnea workup as an outpatient. This will be tremendously helpful in managing overall heart failure symptoms. If she does not have any significant hypoxia can be discharged from cardiac perspective are may require oxygen support. Continue Bumex 2 mg p.o. daily. Also add Aldactone 12.5 mg to regimen. Continue other blood pressure regimen. She needs aggressive weight loss plan in the future. Also CHF education should be provided an additional Bumex at home. Will follow up in the clinic in 1 weeks time. given that she has NYHA class 3 symptoms and has repeated hospitalization for congestive heart failure as well as difficult to assess volume status would be a good candidate for CardioMEMS device. Will set it up as outpatient. <Joaquín Hunter MD - Last Filed: 01/15/21 10:43> Fall Risk Details Current Medications: Current Medications Generic Name Dose Route Start Last Admin Trade Name Freq PRN Reason Stop Dose Admin Acetaminophen 650 mg 01/09/21 23:18 Acetaminophen 325 Mg Tablet PO Q6H PRN Pain, Mild (Pain Scale 1-3) Albuterol Sulfate 2 puff 01/09/21 23:23 Albuterol Sulfate 90 Mcg 8 Gm Inhaler INHALE Q4H PRN Dyspnea Albuterol/Ipratropium 3 ml 01/09/21 23:18 01/10/21 06:29 Albuterol/Iprat 2.5/0.5mg 3 Ml Ampul.Neb INHALE 3 ml RQ4H WHILE AWAKE PRN Administration Shortness of Breath/Wheezing Amlodipine Besylate 5 mg 01/12/21 10:45 01/15/21 07:55 Amlodipine Besylate 5 Mg Tablet PO 5 mg DAILY HI Administration Protocol Aspirin 81 mg 01/10/21 09:00 01/15/21 07:55 Aspirin Enteric Coated 81 Mg Tablet. PO 81 mg DAILY HI Administration Atorvastatin Calcium 10 mg 01/10/21 21:00 01/14/21 20:13 Atorvastatin Calcium 10 Mg Tablet PO 10 mg BEDTIME HI Administration Bumetanide 2 mg 01/15/21 08:00 01/15/21 07:57 Bumetanide 1 Mg Tablet PO 2 mg BID@0800,1700 HI Administration Protocol Dextrose 25 gm 01/09/21 23:24 Dextrose 50 % 25 Gm/50 Ml Vial IVPUSH ONCE PRN hypoglucemia Enoxaparin Sodium 40 mg 01/09/21 23:30 01/14/21 22:41 Enoxaparin Sodium 40 Mg/0.4 Ml Syringe SUBCUT 40 mg Q24H HI Administration Fluoxetine HCl 40 mg 01/10/21 09:00 01/15/21 07:55 Fluoxetine Hcl 20 Mg Capsule PO 40 mg DAILY HI Administration Gabapentin 400 mg 01/10/21 09:00 01/15/21 07:55 Gabapentin 400 Mg Capsule PO 400 mg TID HI Administration Insulin Glargine 40 unit 01/10/21 21:00 01/14/21 20:15 Insulin Glargine,Hum.Rec.Anlog 100 Unit/Ml 10 Ml Vial SUBCUT 40 unit BEDTIME [facility] Administration Insulin Human Lispro 0 unit 01/11/21 07:30 01/15/21 07:54 Insulin Lispro 100 Unit/Ml 3 Ml Vial SUBCUT 4 unit QIDACHS [facility] Administration Protocol Isosorbide Mononitrate 30 mg 01/10/21 09:00 01/15/21 07:55 Isosorbide Mononitrate 30 Mg Tab.Er.24h PO 30 mg DAILY [facility] Administration Protocol Metoprolol Succinate 50 mg 01/10/21 09:00 01/15/21 07:55 Metoprolol Succinate Er 50 Mg Tab.Er.24h PO 50 mg DAILY HI Administration Protocol Nitroglycerin 0.4 mg 01/09/21 23:18 Nitroglycerin 0.4 Mg Tab.Subl SUBLINGUAL Q5M PRN Chest Pain Omeprazole 20 mg 01/10/21 21:00 01/14/21 20:13 Omeprazole 20 Mg Capsule.Dr PO 20 mg BEDTIME [facility] Administration Pharmacy Consult 1 each 01/09/21 19:16 Consult Rx Perform Med Rec MISCELLANE ONCE PRN Consult order Pregabalin 100 mg 01/12/21 11:00 01/15/21 07:56 Pregabalin 100 Mg Capsule PO 100 mg BID HI Administration Sodium Chloride 3 ml 01/10/21 00:00 01/15/21 07:55 0.9 % Sodium Chloride Flush 3 Ml Syringe IVFLUSH 3 ml QSHIFT HI Administration Tizanidine HCl 4 mg 01/10/21 21:00 01/14/21 20:13 Tizanidine Hcl 4 Mg Tablet PO 4 mg BEDTIME [facility] Administration Vitamin D 50 mcg 01/10/21 09:00 01/15/21 07:56 Cholecalciferol (Vitamin D3) 25 Mcg Tablet PO 50 mcg DAILY HI Administration <LYNNE Gaytan - Last Filed: 01/15/21 10:20> Time Spent With Patient Time: Total time spent is greater than 50% in coordination of care (as documented) at patient's floor/unit and/or counseling patient: 22 <LYNNE Gaytan - Last Filed: 01/15/21 10:20> Time with patient: 15 - 24 minutes <LYNNE Gaytan - Last Filed: 01/15/21 10:20> Progress Note: Quality Stroke Does the patient have a stroke diagnosis?: No <LYNNE Gaytan - Last Filed: 01/15/21 10:20> Procedures Date of Service Date of Service: 01/15/21 <LYNNE Gaytan - Last Filed: 01/15/21 10:20>
[2021-01-15 11:26] LABS: Glucose, Whole Blood 317 mg/dL (60-115)
[2021-01-15] MEDS: Spironolactone 25 MG TABLET 12.5 MG PO (11:37)
[2021-01-15 11:40] VITALS: BP 146/74; PULSE 79; RESP 20; TEMP 36.3; O2SAT 94
[2021-01-15 13:43] VITALS: BP 146/74; PULSE 79; O2SAT 94
--- NOTE | 2021-01-15 15:14 | P.PNIM_ITS ---
Subjective Subjective Date of Service: 01/15/21 Interval History: complaining of bilateral ankle, refusing to be discharged home , denies shortness of breath, no chest pain no other acute issues overnight. 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 Skin: warm/well-perfused Neuro: alert and oriented x3, no focal findings. Psych: appropriate affect Objective Data Current Medications Generic Name Dose Route Start Last Admin Trade Name Freq PRN Reason Stop Dose Admin Acetaminophen 650 mg 01/09/21 23:18 Acetaminophen 325 Mg Tablet PO Q6H PRN Pain, Mild (Pain Scale 1-3) Albuterol Sulfate 2 puff 01/09/21 23:23 Albuterol Sulfate 90 Mcg 8 Gm Inhaler INHALE Q4H PRN Dyspnea Albuterol/Ipratropium 3 ml 01/09/21 23:18 01/10/21 06:29 Albuterol/Iprat 2.5/0.5mg 3 Ml Ampul.Neb INHALE 3 ml RQ4H WHILE AWAKE PRN Administration Shortness of Breath/Wheezing Amlodipine Besylate 5 mg 01/12/21 10:45 01/15/21 07:55 Amlodipine Besylate 5 Mg Tablet PO 5 mg DAILY HI Administration Protocol Aspirin 81 mg 01/10/21 09:00 01/15/21 07:55 Aspirin Enteric Coated 81 Mg Tablet. PO 81 mg DAILY HI Administration Atorvastatin Calcium 10 mg 01/10/21 21:00 01/14/21 20:13 Atorvastatin Calcium 10 Mg Tablet PO 10 mg BEDTIME HI Administration Bumetanide 2 mg 01/16/21 09:00 Bumetanide 1 Mg Tablet PO DAILY [facility] Protocol Dextrose 25 gm 01/09/21 23:24 Dextrose 50 % 25 Gm/50 Ml Vial IVPUSH ONCE PRN hypoglucemia Enoxaparin Sodium 40 mg 01/09/21 23:30 01/14/21 22:41 Enoxaparin Sodium 40 Mg/0.4 Ml Syringe SUBCUT 40 mg Q24H HI Administration Fluoxetine HCl 40 mg 01/10/21 09:00 01/15/21 07:55 Fluoxetine Hcl 20 Mg Capsule PO 40 mg DAILY HI Administration Gabapentin 400 mg 01/10/21 09:00 01/15/21 14:18 Gabapentin 400 Mg Capsule PO 400 mg TID HI Administration Insulin Glargine 40 unit 01/10/21 21:00 01/14/21 20:15 Insulin Glargine,Hum.Rec.Anlog 100 Unit/Ml 10 Ml Vial SUBCUT 40 unit BEDTIME [facility] Administration Insulin Human Lispro 0 unit 01/11/21 07:30 01/15/21 11:36 Insulin Lispro 100 Unit/Ml 3 Ml Vial SUBCUT 8 unit QIDACHS [facility] Administration Protocol Isosorbide Mononitrate 30 mg 01/10/21 09:00 01/15/21 07:55 Isosorbide Mononitrate 30 Mg Tab.Er.24h PO 30 mg DAILY [facility] Administration Protocol Metoprolol Succinate 50 mg 01/10/21 09:00 01/15/21 07:55 Metoprolol Succinate Er 50 Mg Tab.Er.24h PO 50 mg DAILY [facility] Administration Protocol Nitroglycerin 0.4 mg 01/09/21 23:18 Nitroglycerin 0.4 Mg Tab.Subl SUBLINGUAL Q5M PRN Chest Pain Omeprazole 20 mg 01/10/21 21:00 01/14/21 20:13 Omeprazole 20 Mg Capsule.Dr PO 20 mg BEDTIME [facility] Administration Pharmacy Consult 1 each 01/09/21 19:16 Consult Rx Perform Med Rec MISCELLANE ONCE PRN Consult order Pregabalin 100 mg 01/12/21 11:00 01/15/21 07:56 Pregabalin 100 Mg Capsule PO 100 mg BID HI Administration Sodium Chloride 3 ml 01/10/21 00:00 01/15/21 07:55 0.9 % Sodium Chloride Flush 3 Ml Syringe IVFLUSH 3 ml QSHIFT [facility] Administration Spironolactone 12.5 mg 01/15/21 10:30 01/15/21 11:37 Spironolactone 25 Mg Tablet PO 12.5 mg DAILY HI Administration Protocol Tizanidine HCl 4 mg 01/10/21 21:00 01/14/21 20:13 Tizanidine Hcl 4 Mg Tablet PO 4 mg BEDTIME HI Administration Vitamin D 50 mcg 01/10/21 09:00 01/15/21 07:56 Cholecalciferol (Vitamin D3) 25 Mcg Tablet PO 50 mcg DAILY HI Administration Labs CBC & Chem 7: 01/10/21 05:38 01/15/21 05:18 Labs: Laboratory Results - last 24 hr 01/14/21 01/14/21 01/15/21 16:08 19:53 05:18 Sodium Cancelled Potassium Cancelled Chloride Cancelled Carbon Dioxide Cancelled Anion Gap Cancelled BUN Cancelled Creatinine Cancelled Estim Creat Clear Calc Cancelled Estimated GFR Cancelled POC Glucose 229 H 198 H Random Glucose Fasting Glucose Cancelled Calcium Cancelled B-Natriuretic Peptide 01/15/21 01/15/21 01/15/21 05:18 05:18 05:18 Sodium 142 Potassium 4.4 Chloride 100 Carbon Dioxide 33 H Anion Gap 13 BUN 57 H Creatinine 1.43 H Estim Creat Clear Calc 54.8 Estimated GFR 38 POC Glucose Random Glucose 235 H Fasting Glucose Calcium 8.2 L B-Natriuretic Peptide Cancelled 167 H 01/15/21 01/15/21 07:20 11:17 Sodium Potassium Chloride Carbon Dioxide Anion Gap BUN Creatinine Estim Creat Clear Calc Estimated GFR POC Glucose 223 H 317 H Random Glucose Fasting Glucose Calcium B-Natriuretic Peptide Microbiology Microbiology Results: Microbiology 01/09/21 19:45 Blood Culture - Final Blood - Venous No growth after 5 days. 01/09/21 19:45 Blood Culture - Final Blood - Venous No growth after 5 days. Quality Stroke Does the patient have a stroke diagnosis?: No VTE Prior VTE?: No VTE Risk Level:: Medical - moderate - high VTE Device Contraindication: N/A - Device Ordered VTE Drug Contraindication: N/A - Med Ordered Assessment and Plan (1) Acute respiratory failure with hypoxia and hypercapnia: Status: Acute (2) Acute on chronic combined systolic and diastolic CHF (congestive heart failure): Status: Acute (3) Morbid obesity: Status: Acute (4) CKD (chronic kidney disease) stage 3, GFR 30-59 ml/min: Status: Acute (5) DANIEL (obstructive sleep apnea): Status: Acute (6) Obesity hypoventilation syndrome: Status: Acute (7) Diabetes: Status: Acute (8) Hypertension: Status: Acute Assessment and Plan: 60yo F with CHF [mildly reduced LVEF 40% and grade I diastolic dysfunction on TTE 11/23], HTN, HLD, DM2 + neuropathy, chronic pain, DANIEL/OHS, asthma presenting with dyspnea/chest discomfort, 17kg above baseline weight # acute on chronic combined systolic/diastolic CHF exacerbation - denies shortness of breath or chest pain, appears euvolemic ,stable creatinin e, case discussed with Dr. Enamorado he recommend to place patient on Bumex 2 mg by mouth daily and Aldactone 12.5 mg daily, encourage incentive spirometry out of bed to chair, outpatient sleep study will be arranged by Cardiology continue Imdur, and metoprolol succinate, will obtain PT eval for discharge planning. # acute hypoxic resp failure - noted to have mild hypoxia overnight, therefore placed back on oxygen Will continue to monitor oxygenation use and do home O2 eval upon discharge, encourage incentive spirometry. # hyperK - resolved # HTN - continue metoprolol succinate, Imdur and amlodipine stable BP # DANIEL - CPAP # HLD - continue statin # asthma, not in acute exacerbation - prn nebulizer treatments # DM2 - Elevated blood sugar on basal/bolus insulin will increase dose of Lantus. # neuropathy - patient being followed closely by primary care physician will continue gabapentin and Lyrica, explained therapeutic duplication recommend follow-up with PCP # mood disorder - continue fluoxetine # VTE ppx - LMWH
[2021-01-15 15:29] VITALS: BP 114/57; PULSE 77; RESP 18; TEMP 36.9; O2SAT 95
[2021-01-15 16:01] LABS: Glucose, Whole Blood 180 mg/dL (60-115)
[2021-01-15 19:42] VITALS: BP 117/58; PULSE 81; RESP 20; TEMP 36.4; O2SAT 94
[2021-01-15 20:10] LABS: Glucose, Whole Blood 175 mg/dL (60-115)
[2021-01-15] MEDS: Omeprazole 20 MG CAPSULE.DR PO (20:43)
[2021-01-15] MEDS: TiZANidine HCL 4 MG TABLET PO (20:43)
[2021-01-15] MEDS: Atorvastatin Calcium 10 MG TABLET PO (20:43)
[2021-01-15] MEDS: Insulin Glargine,Hum.rec.anlog 100 UNIT/ML 10 ML VIAL 50 UNIT SUBCUT (20:44)
[2021-01-15] MEDS: Enoxaparin Sodium 40 MG/0.4 ML SYRINGE SUBCUT (23:28)
[2021-01-16] VITALS: BP 101/50; PULSE 71; RESP 18; TEMP 36.6; O2SAT 95
[2021-01-16 03:16] VITALS: BP 100/43; PULSE 56; RESP 20; TEMP 36.8; O2SAT 98
[2021-01-16 06:00] VITALS: BMI 53.2
[2021-01-16 07:05] VITALS: BP 117/59; PULSE 75; RESP 19; TEMP 36.1; O2SAT 96
[2021-01-16 07:24] LABS: Glucose, Whole Blood 206 mg/dL (60-115)
[2021-01-16] MEDS: Insulin Lispro 100 UNIT/ML 3 ML VIAL SUBCUT ×3 (08:00→16:13)
[2021-01-16] MEDS: amLODIPine Besylate 5 MG TABLET PO (08:01)
[2021-01-16] MEDS: FLUoxetine HCl 20 MG CAPSULE 40 MG PO (08:01)
[2021-01-16] MEDS: Gabapentin 400 MG CAPSULE PO ×2 (08:01→16:08)
[2021-01-16] MEDS: Spironolactone 25 MG TABLET 12.5 MG PO (08:01)
[2021-01-16] MEDS: Cholecalciferol (Vitamin D3) 25 MCG TABLET 50 MCG PO (08:01)
[2021-01-16] MEDS: Bumetanide 1 MG TABLET 2 MG PO (08:01)
[2021-01-16] MEDS: Pregabalin 100 MG CAPSULE PO (08:01)
[2021-01-16] MEDS: 0.9 % Sodium Chloride Flush 3 ML SYRINGE IVFLUSH ×2 (08:02→16:09)
[2021-01-16] MEDS: Aspirin Enteric Coated 81 MG TABLET.DR PO (08:02)
[2021-01-16] MEDS: Metoprolol Succinate ER 50 MG TAB.ER.24H PO (08:02)
--- NOTE | 2021-01-16 08:45 | MHC.CM.PN ---
PT eval indicates STR is recommended for this pt. A list of facilities has been provided. CM will obtain a list of preferred facilities for referrals to be made.
[2021-01-16] MEDS: Isosorbide Mononitrate 30 MG TAB.ER.24H PO (09:32)
[2021-01-16 11:06] VITALS: BP 134/62; PULSE 76; RESP 18; TEMP 36; O2SAT 96
[2021-01-16 11:14] LABS: Glucose, Whole Blood 316 mg/dL (60-115)
[2021-01-16 12:21] LABS: Anion Gap 10 (12-20); Blood Urea Nitrogen 67 mg/dL (9-16); Calcium 8.3 mg/dL (8.4-10.2); Carbon Dioxide 36 mmol/L (22-29); Chloride 97 mmol/L (96-108); Creatinine Clr Calc Pharmacy 53.5; Estimated Glomerular Filt Rate 36; Glucose Random 310 mg/dL (60-115); Potassium 4.4 mmol/L (3.3-5.1); Sodium 139 mmol/L (135-145)
--- NOTE | 2021-01-16 13:44 | HO.PM.IMPN ---
Subjective Subjective Date of Service: 01/16/21 Interval History: patient not feeling well this morning complaining of dizziness, denies shortness of breath no chest pain no other acute issues overnight, oxygenation 96% on 2 L. 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, + dizziness CVS no chest pain, no palpitation GI no nausea, no vomit, no diarrhea No urinary burning, no urgency Physical Exam Vital Signs: Vital Signs: Last Vital Signs Temp 96.8 F 01/16/21 11:06 Pulse 76 01/16/21 11:06 Resp 18 01/16/21 11:06 BP 134/62 01/16/21 11:06 Pulse Ox 96 01/16/21 11:06 Oxygen Flow Rate 2 01/09/21 18:53 Body Mass Index 53.2 Gen no acute distress Neck: supple, no JVD Lungs: no rales no wheeze, no anterior chest wall tenderness with palpation Heart: regular rate and rhythm Abd:morbidly obese, soft, non-tender, non-distended Ext: no pitting edema noted , normal ankle exam. Skin: warm/well-perfused Neuro: alert and oriented x3, no focal findings. Psych: appropriate affect Objective Data Current Medications Generic Name Dose Route Start Last Admin Trade Name Freq PRN Reason Stop Dose Admin Acetaminophen 650 mg 01/09/21 23:18 Acetaminophen 325 Mg Tablet PO Q6H PRN Pain, Mild (Pain Scale 1-3) Albuterol Sulfate 2 puff 01/09/21 23:23 Albuterol Sulfate 90 Mcg 8 Gm Inhaler INHALE Q4H PRN Dyspnea Albuterol/Ipratropium 3 ml 01/09/21 23:18 01/10/21 06:29 Albuterol/Iprat 2.5/0.5mg 3 Ml Ampul.Neb INHALE 3 ml RQ4H WHILE AWAKE PRN Administration Shortness of Breath/Wheezing Amlodipine Besylate 5 mg 01/12/21 10:45 01/16/21 08:01 Amlodipine Besylate 5 Mg Tablet PO 5 mg DAILY HI Administration Protocol Aspirin 81 mg 01/10/21 09:00 01/16/21 08:02 Aspirin Enteric Coated 81 Mg Tablet. PO 81 mg DAILY HI Administration Atorvastatin Calcium 10 mg 01/10/21 21:00 01/15/21 20:43 Atorvastatin Calcium 10 Mg Tablet PO 10 mg BEDTIME HI Administration Bumetanide 2 mg 01/16/21 09:00 01/16/21 08:01 Bumetanide 1 Mg Tablet PO 2 mg DAILY [facility] Administration Protocol Dextrose 25 gm 01/09/21 23:24 Dextrose 50 % 25 Gm/50 Ml Vial IVPUSH ONCE PRN hypoglucemia Enoxaparin Sodium 40 mg 01/09/21 23:30 01/15/21 23:28 Enoxaparin Sodium 40 Mg/0.4 Ml Syringe SUBCUT 40 mg Q24H HI Administration Fluoxetine HCl 40 mg 01/10/21 09:00 01/16/21 08:01 Fluoxetine Hcl 20 Mg Capsule PO 40 mg DAILY HI Administration Gabapentin 400 mg 01/10/21 09:00 01/16/21 08:01 Gabapentin 400 Mg Capsule PO 400 mg TID [facility] Administration Insulin Glargine 50 unit 01/15/21 21:00 01/15/21 20:44 Insulin Glargine,Hum.Rec.Anlog 100 Unit/Ml 10 Ml Vial SUBCUT 50 unit BEDTIME [facility] Administration Insulin Human Lispro 0 unit 01/11/21 07:30 01/16/21 11:45 Insulin Lispro 100 Unit/Ml 3 Ml Vial SUBCUT 8 unit QIDACHS [facility] Administration Protocol Isosorbide Mononitrate 30 mg 01/10/21 09:00 01/16/21 09:32 Isosorbide Mononitrate 30 Mg Tab.Er.24h PO 30 mg DAILY [facility] Administration Protocol Metoprolol Succinate 50 mg 01/10/21 09:00 01/16/21 08:02 Metoprolol Succinate Er 50 Mg Tab.Er.24h PO 50 mg DAILY [facility] Administration Protocol Nitroglycerin 0.4 mg 01/09/21 23:18 Nitroglycerin 0.4 Mg Tab.Subl SUBLINGUAL Q5M PRN Chest Pain Omeprazole 20 mg 01/10/21 21:00 01/15/21 20:43 Omeprazole 20 Mg Capsule.Dr PO 20 mg BEDTIME [facility] Administration Pharmacy Consult 1 each 01/09/21 19:16 Consult Rx Perform Med Rec MISCELLANE ONCE PRN Consult order Pregabalin 100 mg 01/12/21 11:00 01/16/21 08:01 Pregabalin 100 Mg Capsule PO 100 mg BID HI Administration Sodium Chloride 3 ml 01/10/21 00:00 01/16/21 08:02 0.9 % Sodium Chloride Flush 3 Ml Syringe IVFLUSH 3 ml QSHIFT [facility] Administration Tizanidine HCl 4 mg 01/10/21 21:00 01/15/21 20:43 Tizanidine Hcl 4 Mg Tablet PO 4 mg BEDTIME HI Administration Vitamin D 50 mcg 01/10/21 09:00 01/16/21 08:01 Cholecalciferol (Vitamin D3) 25 Mcg Tablet PO 50 mcg DAILY HI Administration Labs CBC & Chem 7: 01/10/21 05:38 01/16/21 11:23 Labs: Laboratory Results - last 24 hr 01/15/21 01/15/21 01/16/21 15:55 19:58 07:05 Sodium Potassium Chloride Carbon Dioxide Anion Gap BUN Creatinine Estim Creat Clear Calc Estimated GFR POC Glucose 180 H 175 H 206 H Random Glucose Calcium 01/16/21 01/16/21 11:05 11:23 Sodium 139 Potassium 4.4 Chloride 97 Carbon Dioxide 36 H Anion Gap 10 L BUN 67 H Creatinine 1.48 H Estim Creat Clear Calc 53.5 Estimated GFR 36 POC Glucose 316 H Random Glucose 310 H Calcium 8.3 L Quality Stroke Does the patient have a stroke diagnosis?: No VTE Prior VTE?: No VTE Risk Level:: Medical - moderate - high VTE Device Contraindication: N/A - Device Ordered VTE Drug Contraindication: N/A - Med Ordered Assessment and Plan (1) Acute on chronic combined systolic and diastolic CHF (congestive heart failure): Status: Acute (2) Morbid obesity: Status: Acute (3) CKD (chronic kidney disease) stage 3, GFR 30-59 ml/min: Status: Acute (4) DANIEL (obstructive sleep apnea): Status: Acute (5) Obesity hypoventilation syndrome: Status: Acute (6) Diabetes: Status: Acute (7) Hypertension: Status: Acute (8) Acute respiratory failure with hypoxia and hypercapnia: Status: Acute Assessment and Plan: 60yo F with CHF [mildly reduced LVEF 40% and grade I diastolic dysfunction on TTE 11/23], HTN, HLD, DM2 + neuropathy, chronic pain, DANIEL/OHS, asthma presenting with dyspnea/chest discomfort, 17kg above baseline weight # acute on chronic combined systolic/diastolic CHF exacerbation - denies shortness of breath or chest pain, appears euvolemic/ dry tongue , mild bump in creatinine, started on Bumex 2 mg by mouth daily and Aldactone 12.5 mg daily,on 01/15 since appear dry this morning will DC Aldactone and hold Bumex , follow clinical course and adjust diuretics continue Imdur, and metoprolol succinate, PT recommend short-term rehab. # acute hypoxic resp failure - persistent mild hypoxia overnight continue oxygen since patient going to rehab again have home O2 well prior to discharge from rehab facility,encourage incentive spirometry. # hyperK - resolved # HTN - continue metoprolol succinate, Imdur and amlodipine soft blood pressure this morning with addition of Aldactone and Bumex will DC Aldactone and follow BP # DANIEL weight reduction/ CPAP # HLD - continue statin # asthma, not in acute exacerbation, continue prn nebulizer treatments # DM2 - Elevated blood sugar in 300 range on basal/bolus insulin will increase dose of Lantus to 60 units home dose 80 units. 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
--- NOTE | 2021-01-16 14:59 | MHC.CM.PN ---
Per MD, Patient will be medically cleared for dc to [facility]SNF today. Patient will dc to [facility] today at 5 PM, via [facility]. Patient and Daughter/Tess @ [phone] are aware of and in agreement with the dc plan.
[2021-01-16 15:36] VITALS: BP 126/59; PULSE 75; RESP 16; TEMP 36.8; O2SAT 94
--- NOTE | 2021-01-16 16:18 | P.DS_ITS ---
DS: Providers Provider Date of Service: 01/16/21 Date of admission: 01/09/21 23:18 Primary care physician: Tavo Huber MD Consults: 01/09/21 23:18 Consult to Cardiology Routine Consulting Provider: Orlando Hebert Reason for consultation: CHF DS: Diagnosis Discharge Diagnosis (1) Acute on chronic combined systolic and diastolic CHF (congestive heart failure): Status: Acute (2) Morbid obesity: Status: Acute (3) CKD (chronic kidney disease) stage 3, GFR 30-59 ml/min: Status: Acute (4) DANIEL (obstructive sleep apnea): Status: Acute (5) Obesity hypoventilation syndrome: Status: Acute (6) Diabetes: Status: Acute (7) Hypertension: Status: Acute (8) Acute respiratory failure with hypoxia and hypercapnia: Status: Acute DS: Medications Discharge Medications Home Medications: Home Medications Medication Instructions Recorded Confirmed Flovent HFA 2 puff INHALATION BID 11/23/20 01/09/21 albuterol sulfate [ProAir HFA] 2 puff INHALATION Q4H PRN 11/23/20 01/09/21 aspirin 81 mg PO DAILY 11/23/20 01/09/21 fluoxetine 40 mg PO DAILY 11/23/20 01/09/21 metoprolol succinate 50 mg PO DAILY 11/23/20 01/09/21 omeprazole 20 mg PO BEDTIME 11/23/20 01/09/21 simvastatin 20 mg PO BEDTIME 11/23/20 01/09/21 cholecalciferol (vitamin D3) 50 mcg PO DAILY 12/11/20 01/09/21 isosorbide mononitrate 30 mg PO DAILY 12/11/20 01/09/21 tizanidine 4 mg PO BEDTIME 12/11/20 01/09/21 gabapentin 1 cap PO TID 01/09/21 01/09/21 Previous Rx's Medication Instructions Recorded pregabalin [Lyrica] 100 mg PO BID #10 cap 12/18/20 amlodipine 5 mg PO DAILY #30 tab 01/16/21 bumetanide 2 mg PO DAILY #30 tab 01/16/21 insulin glargine [Lantus U-100 60 unit SUBCUT BEDTIME #1 ml 01/16/21 Insulin] insulin lispro [Humalog U-100 See Protocol SUBCUT QIDACHS #1 ml 01/16/21 Insulin] ipratropium-albuterol 3 ml INHALATION RQ4H WHILE AWAKE 01/16/21 PRN #1 ml DS: Summary Hospital Course Hospital Course: history of presenting illness Chief Complaint: SOB 60-year-old female with a past medical history of hypertension, hyperlipidemia, diabetes, asthma/COPD, obesity hypoventilation syndrome, DANIEL, nonischemic cardiomyopathy; diabetic neuropathy, depression, chronic pain presented to the hospital with a chief complaint of shortness of breath. Patient mentioned that over the past 1 week she has been having shortness of breath which has been gradually worsening; also complains of dyspnea on exertion and orthopnea. Reports she has chest discomfort/tightness, intermittent in nature, no associated lightheadedness dizziness nausea vomiting or sweating. Complains of throat discomfort; reports she has not been eating good. 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 Reports her breathing is getting better. RN give the patient Kayexalate while interviewing and patient swallowed without any difficulty. Denies any nausea vomiting diarrhea. Denies any urinary symptoms presently. Review of all other systems is negative except mentioned above ER course: Per ER team patient noted to have crackles, peripheral edema; proBNP 285-but patient is obese; potassium of 5.4-given Kayexalate; EKG nonischemic.; p atient received Lasix in the ER. Admitted to the hospital for further management. Hospital course 60yo F with CHF [mildly reduced LVEF 40% and grade I diastolic dysfunction on TTE 11/23], HTN, HLD, DM2 + neuropathy, chronic pain, DANIEL/OHS, asthma presenting with dyspnea,chest discomfort, 17kg above baseline weight, patient diagnosed to have acute on chronic combined systolic diastolic heart failure. Acute on chronic combined systolic/diastolic CHF exacerbation Patient admitted to telemetry unit and aggressively diuresed with intravenous Lasix, subsequently Lasix was discontinued and patient placed on Bumex 2 mg daily , patient appears euvolemic, creatinine bumped up to 1.48, will hold Bumex tomorrow and resume from January 18, at present patient has no shortness of breath, no orthopnea no chest pain, patient was followed closely by Cardiology and they recommend outpatient follow up for sleep study,CardioMems device, recommend to continue Imdur metoprolol and amlodipine Acute hypoxic resp failure likely due to congestive heart failure, continue O2 support, obstructive sleep apnea, obesity hypoventilation syndrome continue oxygen will need home O2 eval prior to discharge, encourage incentive spirometry and continue inhaler HTN continue metoprolol succinate, Imdur and amlodipine, follow BP closely DANIEL recommended weight reduction an outpatient sleep study HLD continue statin Asthma, no acute exacerbation noted, continue prn nebulizer treatments DM2 on Lantus and bolus insulin at home continue current regimen and adjust dose of insulin Diabetes neuropathy continue gabapentin and Lyrica, explained therapeutic duplication recommend follow-up with PCP Mood disorder continue fluoxetine Time Spent with Patient Time attestation: Total time spent providing and/or coordinating discharge services: Discharge coordination time: Greater than 30 minutes Quality: Stroke Does the patient have a stroke diagnosis?: No Physical Exam Vital Signs: Vital Signs: Last Vital Signs Temp 98.2 F 01/16/21 15:36 Pulse 75 01/16/21 15:36 Resp 16 01/16/21 15:36 BP 126/59 L 01/16/21 15:36 Pulse Ox 94 01/16/21 15:36 Oxygen Flow Rate 2 01/09/21 18:53 Body Mass Index 53.2 Gen no acute distress Neck: supple, no JVD Lungs: no rales no wheeze, no anterior chest wall tenderness with palpation Heart: regular rate and rhythm Abd:morbidly obese, soft, non-tender, non-distended Ext: no pitting edema noted , normal ankle exam. Skin: warm/well-perfused Neuro: alert and oriented x3, no focal findings. Psych: appropriate affect DS: Data Data Completed and Pending Completed studies during hospitalization [Text1]: Procedures Assistance with Respiratory Ventilation, Less than 24 Consecutive Hours, Continuous Positive Airway Pressure (12/11/20) Labs on day of discharge: Laboratory Results - last 24 hr 01/15/21 01/16/21 01/16/21 19:58 07:05 11:05 Sodium Potassium Chloride Carbon Dioxide Anion Gap BUN Creatinine Estim Creat Clear Calc Estimated GFR POC Glucose 175 H 206 H 316 H Random Glucose Calcium 01/16/21 11:23 Sodium 139 Potassium 4.4 Chloride 97 Carbon Dioxide 36 H Anion Gap 10 L BUN 67 H Creatinine 1.48 H Estim Creat Clear Calc 53.5 Estimated GFR 36 POC Glucose Random Glucose 310 H Calcium 8.3 L Discharge Plan Discharge Patient Disposition: Xfer SNF Discharge Diagnosis: acute on chronic combined systolic/ diastolic heart failure acute hypoxic respiratory failure hyperkalemia obstructive sleep apnea morbid obesity neuropathy mood disorder Referrals: [facility] [Outside] - 1 Week Tavo Huber MD [Primary Care Provider] - 1 Week Discharge Medications: New ipratropium-albuterol 0.5 mg-3 mg(2.5 mg base)/3 mL Solution For Nebulization 3 ml inhalation RQ4H WHILE AWAKE PRN (Reason: Shortness Of Breath/Wheezing) Qty: 1 RF: 0 Lantus U-100 Insulin 100 unit/mL Solution 60 unit subcut BEDTIME Qty: 1 RF: 0 amlodipine 5 mg Tablet 5 mg PO DAILY Qty: 30 RF: 0 bumetanide 1 mg Tablet 2 mg PO DAILY Qty: 30 RF: 0 insulin lispro [Humalog U-100 Insulin] 100 unit/mL Solution See Protocol unit subcut QIDACHS Qty: 1 RF: 0 Continued gabapentin 400 mg capsule 1 cap PO TID RF: 0 fluoxetine 40 mg capsule 40 mg PO DAILY RF: 0 metoprolol succinate 50 mg tablet extended release 24 hr 50 mg PO DAILY RF: 0 aspirin 81 mg tablet,delayed release (DR/EC) 81 mg PO DAILY RF: 0 simvastatin 20 mg tablet 20 mg PO BEDTIME RF: 0 omeprazole 20 mg capsule,delayed release(DR/EC) 20 mg PO BEDTIME RF: 0 albuterol sulfate [ProAir HFA] 90 mcg/actuation HFA aerosol inhaler 2 puff inhalation Q4H PRN (Reason: Dyspnea) RF: 0 Flovent HFA 110 mcg/actuation HFA aerosol inhaler 2 puff inhalation BID RF: 0 tizanidine 4 mg Tablet 4 mg PO BEDTIME RF: 0 isosorbide mononitrate 30 mg Tablet Extended Release 24 Hr 30 mg PO DAILY RF: 0 cholecalciferol (vitamin D3) 50 mcg (2,000 unit) Capsule 50 mcg PO DAILY RF: 0 pregabalin [Lyrica] 100 mg Capsule 100 mg PO BID Qty: 10 RF: 0 Discontinued furosemide 20 mg tablet 40 mg PO DAILY RF: 0 furosemide 20 mg tablet 20 mg PO QPM RF: 0 insulin lispro [Humalog U-100 Insulin] 100 unit/mL solution See Rx Instructions sliding scale dose .ROUTE .COMPLEX RF: 0 Lantus U-100 Insulin 100 unit/mL solution 80 unit subcut BEDTIME RF: 0 amlodipine 10 mg tablet 10 mg PO DAILY RF: 0 Discharge Orders: Discharge Order (Routine); Ordered 01/16/21 Ordered By: Davion Mccallum Diet: diabetic diet and low salt diet Activity on Discharge: As tolerated Stand Alone Forms: Patient Portal Discharge page Care Plan Goals: continue current medication start Bumex 2 mg daily starting from January 18, hold Bumex tomorrow, continue all medications as prescribed follow diabetic diet outpatient follow-up with Cardiology for outpatient sleep study, CardioMEMS device. check BMP early next week January 21 Health Concerns: follow diabetic diet, exercise ambulate as per PT recommendation continue oxygen will need home O2 eval prior to discharge. Plan of Treatment: Outpatient follow-up with Cardiology in 1 week outpatient follow-up with PCP, patient is being discharged to rehab for less than 30 days Assessment: as above
[2021-01-16 16:34] LABS: Glucose, Whole Blood 231 mg/dL (60-115)
== END 2021-01-16 17:11 | disposition skilled nursing facility (03) | DRG 194 ==
LOC: HO.ED 23:06 → HO.EDOVER 23:36 → HO.IMC 23:45
PROVIDERS: Family Medicine; Admitting Provider Hospitalist; Emergency Provider Emergency Medicine; PCP Internal Medicine; Visit Provider Hospitalist
DX: I13.0 Hypertensive heart and chronic kidney disease with heart failure and stage 1 through stage 4 chronic kidney disease, or unspecified chronic kidney disease (principal); J96.01 Acute respiratory failure with hypoxia; E66.2 Morbid (severe) obesity with alveolar hypoventilation; E11.42 Type 2 diabetes mellitus with diabetic polyneuropathy; Z68.43 Body mass index [BMI] 50.0-59.9, adult; I42.8 Other cardiomyopathies; I50.43 Acute on chronic combined systolic (congestive) and diastolic (congestive) heart failure; J45.909 Unspecified asthma, uncomplicated; E11.22 Type 2 diabetes mellitus with diabetic chronic kidney disease; E87.5 Hyperkalemia; N18.30 Chronic kidney disease, stage 3 unspecified; E78.5 Hyperlipidemia, unspecified; Z87.891 Personal history of nicotine dependence; Z79.4 Long term (current) use of insulin; Z88.5 Allergy status to narcotic agent; Z88.6 Allergy status to analgesic agent; Z79.899 Other long term (current) drug therapy
CPT/HCPCS: 0241U; 36415; 71045; 80048; 80076; 82947; 83605; 83735; 83880; 84484; 85025; 85610; 87040; 92610; 93005; 94640; 97162; 99285; J1650; J1940

== ENCOUNTER 2021-01-18 06:22 | Outpatient (REF) | payer MEDICAID, SELFPAY ==
[2021-01-18 06:57] LABS: Anion Gap 13 (12-20); Blood Urea Nitrogen 57 mg/dL (9-16); Calcium 8.5 mg/dL (8.4-10.2); Carbon Dioxide 36 mmol/L (22-29); Chloride 99 mmol/L (96-108); Estimated Glomerular Filt Rate 36; Glucose Random 290 mg/dL (60-115); Potassium 4.4 mmol/L (3.3-5.1); Sodium 144 mmol/L (135-145)
== END 2021-01-18 06:23 | disposition home or self-care (01) ==
LOC: HO.MMNH1L 06:22
PROVIDERS: Visit Provider Internal Medicine
DX: I50.9 Heart failure, unspecified (principal); E11.9 Type 2 diabetes mellitus without complications
CPT/HCPCS: 36415; 80048

== ENCOUNTER 2021-01-21 | Outpatient (REF) | payer MEDICAID, SELFPAY ==
[2021-01-21 07:08] LABS: Anion Gap 14 (12-20); Blood Urea Nitrogen 57 mg/dL (9-16); Calcium 8.4 mg/dL (8.4-10.2); Carbon Dioxide 31 mmol/L (22-29); Chloride 101 mmol/L (96-108); Estimated Glomerular Filt Rate 40; Glucose Random 237 mg/dL (60-115); Potassium 4.1 mmol/L (3.3-5.1); Sodium 142 mmol/L (135-145)
== END 2021-01-21 00:01 | disposition home or self-care (01) ==
LOC: HO.MMNH1L
PROVIDERS: Visit Provider Internal Medicine
DX: I50.9 Heart failure, unspecified (principal); E11.9 Type 2 diabetes mellitus without complications
CPT/HCPCS: 36415; 80048

== ENCOUNTER → 2021-02-27 12:21 | Outpatient (REF) | payer MEDICAID, SELFPAY | LOC: HO.SL 12:21 | PROVIDERS: PCP Internal Medicine; Visit Provider Nurse Practitioner Family | DX: E66.01 Morbid (severe) obesity due to excess calories (principal); G47.33 Obstructive sleep apnea (adult) (pediatric) | CPT/HCPCS: 95806 ==

== ENCOUNTER 2021-03-22 14:33 | Outpatient (REF) | payer MEDICAID, SELFPAY ==
[2021-03-22 15:17] LABS: MANUAL DIFF FLAG NO
[2021-03-22 15:19] LABS: Basophils Percent Auto 0.5 % (0-2); Eosinophils Absolute Auto 0.1 X10*3/uL (0.0-0.4); Eosinophils Percent Auto 1.7 % (0-4); Hematocrit 38.8 % (37-47); Hemoglobin 11.3 g/dl (12.0-16.0); Imm Gran Abs Auto 0.03 X10*3/uL (0.00-0.03); Imm Gran Pct Auto 0.4 % (0.0-0.4); Lymphocytes Absolute Auto 1.3 X10*3/uL (1.2-4.9); Lymphocytes Percent Auto 15.3 % (20-40); Mean Corpuscular HGB Conc 29.1 g/dl (31.0-35.0); Mean Corpuscular Hemoglobin 24.5 pg (27.0-33.0); Mean Corpuscular Volume 84.2 fL (80-98); Mean Platelet Volume 9.9 fL (9.4-12.3); Monocytes Absolute Auto 0.9 X10*3/uL (0.1-1.2); Monocytes Percent Auto 10.6 % (2-11); Neutrophils Percent Auto 71.5 % (45-73); Platelet Count 204 X10*3/uL (160-400); Red Blood Count 4.61 X10*6/uL (4.20-5.50); Red Cell Distribution Width 17.2 % (11.0-16.0); White Blood Count 8.4 X10*3/uL (4.8-10.8)
[2021-03-22 15:34] LABS: Anion Gap 12 (12-20); Blood Urea Nitrogen 65 mg/dL (9-16); C Reactive Protein 0.28 mg/dL (< or = 0.50); Calcium 8.7 mg/dL (8.4-10.2); Carbon Dioxide 30 mmol/L (22-29); Chloride 104 mmol/L (96-108); Cholesterol 113 mg/dL; Estimated Glomerular Filt Rate 29; Glucose Random 166 mg/dL (60-115); Potassium 5.4 mmol/L (3.3-5.1); Sodium 141 mmol/L (135-145)
[2021-03-22 15:36] LABS: Creatinine Urine 76.57 mg/dL; Microalbum/Creatinine Ratio Ur 103.1 ug/mg cr
[2021-03-22 15:37] LABS: Estimated Average Glucose 186 mg/dL; Hemoglobin A1c % 8.1 %
[2021-03-22 15:42] LABS: B Type Natriuretic Peptide 252 pg/mL (<100)
[2021-03-22 15:57] LABS: Free T4 (Free Thyroxine) 0.95 ng/dL (0.71-1.85); Thyroid Stimulating Hormone 1.43 uIU/mL (0.32-4.0)
== END 2021-03-22 14:34 | disposition home or self-care (01) ==
LOC: HO.LAB 14:33
PROVIDERS: PCP Internal Medicine; Visit Provider Internal Medicine
DX: E11.22 Type 2 diabetes mellitus with diabetic chronic kidney disease (principal); J44.9 Chronic obstructive pulmonary disease, unspecified; I50.9 Heart failure, unspecified; N18.9 Chronic kidney disease, unspecified; R53.83 Other fatigue
CPT/HCPCS: 36415; 80048; 82043; 82465; 83036; 83880; 84439; 84443; 85025; 86140

== ENCOUNTER 2021-03-31 20:18 | Inpatient (IN) | payer MEDICAID, SELFPAY ==
--- NOTE | ~2021-03-31 | XR_ITS ---
EXAMINATION: XR CHEST CLINICAL INFORMATION: Hypoxia, shortness of breath COMPARISON: Chest radiograph from 03/31/2021 TECHNIQUE: 2 views of the chest were obtained. FINDINGS: Improvement in pulmonary vascular prominence. No pneumothorax. Trachea is midline. Cardiomediastinal silhouette is enlarged. No large pleural effusions. Degenerative changes of the thoracolumbar spine. Surgical clips in upper abdomen. Soft tissues are unremarkable. XR/XR chest 2V IMPRESSION: Improvement in pulmonary vascular prominence.
--- NOTE | ~2021-03-31 | XR_ITS ---
EXAMINATION: XR CHEST CLINICAL INFORMATION: Shortness of breath COMPARISON: 01/14/2021 TECHNIQUE: Frontal view of the chest was obtained. FINDINGS: Again seen is cardiomegaly and mild upper zone redistribution suggesting early congestion. No focal consolidations, lung masses or effusions are seen. Compared to the prior study, there has been no significant interval change. XR/XR chest 1V IMPRESSION: Cardiomegaly with upper zone redistribution indicative of elevated left ventricular end-diastolic pressure consistent with mild pulmonary vascular congestion/CHF
[2021-03-31 20:35] VITALS: BP 134/70; BP 142/81; PULSE 81; PULSE 82; RESP 24; TEMP 37.2; O2SAT 95; O2SAT 99; BMI 55.7
--- NOTE | 2021-03-31 21:11 | ECG_ITS ---
Test Reason : SOB Blood Pressure : / mmHG Vent. Rate : 083 BPM Atrial Rate : 083 BPM P-R Int : 162 ms QRS Dur : 100 ms QT Int : 408 ms P-R-T Axes : 046 055 078 degrees QTc Int : 479 ms Normal sinus rhythm Normal ECG When compared with ECG of 09-JAN-2021 20:06, No significant change was found Referred By: Chelsy Perez Electronically Signed By:KEYONA SANTANA
--- NOTE | 2021-03-31 21:27 | ED_ITS ---
HPI - SOB/Dyspnea General Chief Complaint: Dyspnea Stated Complaint: sob Time Seen by Provider: 03/31/21 21:11 Source: patient Mode of arrival: EMS History of Present Illness HPI Narrative: 60-year-old female with history of COPD, CHF who presents via EMS with 1 week of worsening shortness of breath not associated with fever, chills, chest pain/palpitations, sore throat, or cough. However, patient states that she has noticed some mild increase in swelling in bilateral lower extremities and denies any GI or symptoms. Patient has not had her COVID-19 vaccines. Related Data Home Medications Medication Instructions Recorded Confirmed albuterol sulfate 90 mcg/actuation 2 puff INHALATION Q4H PRN 11/23/20 01/09/21 aerosol inhaler (ProAir HFA) aspirin 81 mg tablet,delayed 81 mg PO DAILY 11/23/20 01/09/21 release fluoxetine 40 mg capsule 40 mg PO DAILY 11/23/20 01/09/21 fluticasone propionate 110 2 puff INHALATION BID 11/23/20 01/09/21 mcg/actuation HFA aerosol inhaler (Flovent HFA) metoprolol succinate 50 mg 50 mg PO DAILY 11/23/20 01/09/21 tablet,extended release 24 hr omeprazole 20 mg capsule,delayed 20 mg PO BEDTIME 11/23/20 01/09/21 release simvastatin 20 mg tablet 20 mg PO BEDTIME 11/23/20 01/09/21 cholecalciferol (vitamin D3) 50 50 mcg PO DAILY 12/11/20 01/09/21 mcg (2,000 unit) capsule isosorbide mononitrate 30 mg 30 mg PO DAILY 12/11/20 01/09/21 tablet,extended release 24 hr tizanidine 4 mg tablet 4 mg PO BEDTIME 12/11/20 01/09/21 gabapentin 400 mg capsule 1 cap PO TID 01/09/21 01/09/21 Previous Rx's Medication Instructions Recorded pregabalin 100 mg capsule (Lyrica) 100 mg PO BID #10 cap 12/18/20 amlodipine 5 mg tablet 5 mg PO DAILY #30 tab 01/16/21 bumetanide 1 mg tablet 2 mg PO DAILY #30 tab 01/16/21 insulin glargine 100 unit/mL 60 unit SUBCUT BEDTIME #1 ml 01/16/21 subcutaneous solution (Lantus U-100 Insulin) insulin lispro 100 unit/mL See Protocol SUBCUT QIDACHS #1 ml 01/16/21 subcutaneous solution (Humalog U-100 Insulin) ipratropium 0.5 mg-albuterol 3 mg 3 ml INHALATION RQ4H WHILE AWAKE 01/16/21 (2.5 mg base)/3 mL nebulization PRN #1 ml soln Allergies Allergy/AdvReac Type Severity Reaction Status Date / Time No Known Allergies Allergy Unverified 12/11/20 10:41 acetaminophen [Tylenol] AdvReac Unknown vommiting, Verified 11/22/20 21:28 itching ibuprofen AdvReac Unknown vommiting, Verified 11/22/20 21:28 itching morphine AdvReac Unknown vomiting Verified 11/22/20 21:28 Motrin Allergy Unknown itching Uncoded 09/21/19 00:00 Review of Systems Review of Systems: Pertinent positives and negatives as stated in HPI 10 point review of systems otherwise negative. [facility] Past Medical History Source: nursing notes reviewed Medical History Acute on chronic combined systolic and diastolic CHF (congestive heart failure) Asthma delivery delivered Chronic pain CKD (chronic kidney disease) stage 3, GFR 30-59 ml/min Congestive heart failure Depression Diabetes Diabetic neuropathy, painful High cholesterol Hypertension Morbid obesity NICM (nonischemic cardiomyopathy) Obesity hypoventilation syndrome DANIEL (obstructive sleep apnea) Surgical History Hx of cholecystectomy Social History Social History Household Members: Other Household Members Other:: GRANDSON Housing: Apartment Housing Other:: [facility] Do you presently have visiting nurse or other home services: Yes Alcohol intake: never Patient Tobacco Use Status: Former Tobacco user Tobacco use type: Cigarette Years Smoked: 38 Second Hand Smoke Exposure: No Substance Use Type: Marijuana Advance Directives: Yes Advance Directives Information Provided: Yes Advance Directives on File: Yes Advance Directives Date on File: 12/19/20 service: No Current occupational status: disabled Physical Exam Vital Signs: Vital Signs: Last Vital Signs Temp 98.9 F 03/31/21 20:35 Pulse 79 03/31/21 22:34 Resp 15 03/31/21 21:43 BP 129/58 L 03/31/21 21:43 Pulse Ox 98 03/31/21 21:43 Oxygen Flow Rate 2 03/31/21 20:35 Body Mass Index 55.7 VITAL SIGNS: Reviewed. GENERAL: Morbidly obese, chronically ill, in moderate distress. HEAD: Normocephalic/atraumatic EYES: PERRLA, EOMI OROPHARYNX: no oral lesions noted, posterior pharynx clear LUNGS: Decreased breath sounds bilaterally, no expiratory wheeze noted as, positive tachypnea and increased work of breathing noted. SpO2<95> on 2 L nasal cannula CARDIOVASCULAR: Regular rate and rhythm without noted murmurs, no JVD but nonpitting bilateral extremity edema. ABDOMEN: Morbidly obese, exam limited by body habitus, soft, non-tender, non- distended with bowel sounds. MUSCULOSKELETAL: No tenderness, deformities, or effusions noted on gross inspection. EXTREMITIES: No cyanosis, clubbing but nonpitting questionable edema verses baseline appearance due to venous stasis. SKIN: Inspection of the skin reveals no rashes NEUROLOGIC: Alert and oriented x 4. Strength and sensation to light touch were grossly intact x 4. Course Course Course Narrative: 60-year-old female with history and clinical presentation most consistent with CHF versus COPD. Patient provided with Solu-Medrol and albuterol treatment as well as 60 mg of Lasix. Review of all investigations demonstrates most consistent findings with CHF exacerbation and less likely COPD. On re-evaluation patient is feeling somewhat better but still is requiring supplemental oxygen. Case was discussed with inpatient hospitalist who accepts admission. There is a noted slight potassium elevation without symptoms or EKG findings. Will re-evaluate after patient has received albuterol treatment. MDM - SOB/Dyspnea Lab Data Result diagrams: 03/31/21 21:26 03/31/21 21:26 Labs: Lab Results 03/31/21 03/31/21 03/31/21 Range/Units 21:26 21:26 21:26 WBC 9.5 (4.8-10.8) X10*3/uL RBC 4.37 (4.20-5.50) X10*6/uL Hgb 10.7 L (12.0-16.0) g/dl Hct 36.9 L (37-47) % MCV 84.4 (80-98) fL MCH 24.5 L (27.0-33.0) pg MCHC 29.0 L (31.0-35.0) g/dl RDW 17.1 H (11.0-16.0) % Plt Count 165 (160-400) X10*3/uL MPV 10.6 (9.4-12.3) fL Immature Gran % (Auto) 0.4 (0.0-0.4) % Neut % (Auto) 78.9 H (45-73) % Lymph % (Auto) 10.7 L (20-40) % Liberty % (Auto) 8.0 (2-11) % Eos % (Auto) 1.8 (0-4) % Baso % (Auto) 0.2 (0-2) % Lymph # (Auto) 1.0 L (1.2-4.9) X10*3/uL [place] # (Auto) 0.8 (0.1-1.2) X10*3/uL Eos # (Auto) 0.2 (0.0-0.4) X10*3/uL Baso # (Auto) 0.0 (0.0-0.2) X10*3/uL Abs Immat Gran (auto) 0.04 H (0.00-0.03) X10*3/uL Absolute Neuts (auto) 7.5 (2.0-8.3) X10*3/uL Absolute Nucleated RBC 0.000 (0.0-0.012) X10*3/uL Nucleated RBC % (auto) 0.0 (0.0-0.2) /100WBC PT 10.6 (9.9-13.0) SEC INR 0.9 (0.9-1.1) VBG pH (7.32-7.43) VBG pCO2 mmHg VBG pO2 mmHg VBG HCO3 (22-26) mmol/L VBG O2 Saturation % VBG Base Excess mmol/L Sodium 142 (135-145) mmol/L Potassium 5.5 H (3.3-5.1) mmol/L Chloride 106 (96-108) mmol/L Carbon Dioxide 27 (22-29) mmol/L Anion Gap 15 (12-20) BUN 40 H (9-16) mg/dL Creatinine 1.32 (0.5-1.4) mg/dL Estim Creat Clear Calc 61.7 Estimated GFR 41 Random Glucose 247 H (60-115) mg/dL Lactic Acid (0.5-2.0) mmol/L Calcium 8.7 (8.4-10.2) mg/dL Total Bilirubin 0.4 (0.0-1.0) mg/dL AST 13 (5-31) U/L ALT 14 (0-31) U/L Alkaline Phosphatase 89 (39-117) U/L B-Natriuretic Peptide (<100) pg/mL Total Protein 7.3 (6.5-8.0) g/dL Albumin 4.0 (3.5-5.0) g/dL COVID-19 ([facility]) (Negative) COVID-19 Clin Com 03/31/21 03/31/21 03/31/21 Range/Units 21:26 21:26 21:26 WBC (4.8-10.8) X10*3/uL RBC (4.20-5.50) X10*6/uL Hgb (12.0-16.0) g/dl Hct (37-47) % MCV (80-98) fL MCH (27.0-33.0) pg MCHC (31.0-35.0) g/dl RDW (11.0-16.0) % Plt Count (160-400) X10*3/uL MPV (9.4-12.3) fL Immature Gran % (Auto) (0.0-0.4) % Neut % (Auto) (45-73) % Lymph % (Auto) (20-40) % Liberty % (Auto) (2-11) % Eos % (Auto) (0-4) % Baso % (Auto) (0-2) % Lymph # (Auto) (1.2-4.9) X10*3/uL Liberty # (Auto) (0.1-1.2) X10*3/uL Eos # (Auto) (0.0-0.4) X10*3/uL Baso # (Auto) (0.0-0.2) X10*3/uL Abs Immat Gran (auto) (0.00-0.03) X10*3/uL Absolute Neuts (auto) (2.0-8.3) X10*3/uL Absolute Nucleated RBC (0.0-0.012) X10*3/uL Nucleated RBC % (auto) (0.0-0.2) /100WBC PT (9.9-13.0) SEC INR (0.9-1.1) VBG pH (7.32-7.43) VBG pCO2 mmHg VBG pO2 mmHg VBG HCO3 (22-26) mmol/L VBG O2 Saturation % VBG Base Excess mmol/L Sodium (135-145) mmol/L Potassium (3.3-5.1) mmol/L Chloride (96-108) mmol/L Carbon Dioxide (22-29) mmol/L Anion Gap (12-20) BUN (9-16) mg/dL Creatinine (0.5-1.4) mg/dL Estim Creat Clear Calc Estimated GFR Random Glucose (60-115) mg/dL Lactic Acid 1.2 (0.5-2.0) mmol/L Calcium (8.4-10.2) mg/dL Total Bilirubin (0.0-1.0) mg/dL AST (5-31) U/L ALT (0-31) U/L Alkaline Phosphatase (39-117) U/L B-Natriuretic Peptide 457 H (<100) pg/mL Total Protein (6.5-8.0) g/dL Albumin (3.5-5.0) g/dL COVID-19 ([facility]) Negative (Negative) COVID-19 Clin Com See Note 03/31/21 Range/Units 21:32 WBC (4.8-10.8) X10*3/uL RBC (4.20-5.50) X10*6/uL Hgb (12.0-16.0) g/dl Hct (37-47) % MCV (80-98) fL MCH (27.0-33.0) pg MCHC (31.0-35.0) g/dl RDW (11.0-16.0) % Plt Count (160-400) X10*3/uL MPV (9.4-12.3) fL Immature Gran % (Auto) (0.0-0.4) % Neut % (Auto) (45-73) % Lymph % (Auto) (20-40) % Liberty % (Auto) (2-11) % Eos % (Auto) (0-4) % Baso % (Auto) (0-2) % Lymph # (Auto) (1.2-4.9) X10*3/uL Liberty # (Auto) (0.1-1.2) X10*3/uL Eos # (Auto) (0.0-0.4) X10*3/uL Baso # (Auto) (0.0-0.2) X10*3/uL Abs Immat Gran (auto) (0.00-0.03) X10*3/uL Absolute Neuts (auto) (2.0-8.3) X10*3/uL Absolute Nucleated RBC (0.0-0.012) X10*3/uL Nucleated RBC % (auto) (0.0-0.2) /100WBC PT (9.9-13.0) SEC INR (0.9-1.1) VBG pH 7.34 (7.32-7.43) VBG pCO2 54 mmHg VBG pO2 47 mmHg VBG HCO3 29 H (22-26) mmol/L VBG O2 Saturation 66.0 % VBG Base Excess 2.8 mmol/L Sodium (135-145) mmol/L Potassium (3.3-5.1) mmol/L Chloride (96-108) mmol/L Carbon Dioxide (22-29) mmol/L Anion Gap (12-20) BUN (9-16) mg/dL Creatinine (0.5-1.4) mg/dL Estim Creat Clear Calc Estimated GFR Random Glucose (60-115) mg/dL Lactic Acid (0.5-2.0) mmol/L Calcium (8.4-10.2) mg/dL Total Bilirubin (0.0-1.0) mg/dL AST (5-31) U/L ALT (0-31) U/L Alkaline Phosphatase (39-117) U/L B-Natriuretic Peptide (<100) pg/mL Total Protein (6.5-8.0) g/dL Albumin (3.5-5.0) g/dL COVID-19 ([facility]) (Negative) COVID-19 Clin Com ECG Data Attestation: I personally reviewed and interpreted this ECG as follows: Prior ECG tracings: available for review (01/09/2021 no acute changes on comparison) Interpretation: Normal sinus rhythm, HR-83, no STEMI, [place]/QRS/QTC are within normal limits. Discharge Plan Discharge Clinical Impression: CHF exacerbation, COPD (chronic obstructive pulmonary disease), Dyspnea Patient Disposition: Admitted As Inpatient Prescriptions: No Action gabapentin 400 mg capsule 1 cap PO TID RF: 0 ipratropium-albuterol 0.5 mg-3 mg(2.5 mg base)/3 mL Solution For Nebulization 3 ml inhalation RQ4H WHILE AWAKE PRN (Reason: Shortness Of Breath/Wheezing) Qty: 1 RF: 0 Lantus U-100 Insulin 100 unit/mL Solution 60 unit subcut BEDTIME Qty: 1 RF: 0 amlodipine 5 mg Tablet 5 mg PO DAILY Qty: 30 RF: 0 bumetanide 1 mg Tablet 2 mg PO DAILY Qty: 30 RF: 0 insulin lispro [Humalog U-100 Insulin] 100 unit/mL Solution See Protocol unit subcut QIDACHS Qty: 1 RF: 0 fluoxetine 40 mg capsule 40 mg PO DAILY RF: 0 metoprolol succinate 50 mg tablet extended release 24 hr 50 mg PO DAILY RF: 0 aspirin 81 mg tablet,delayed release (DR/EC) 81 mg PO DAILY RF: 0 simvastatin 20 mg tablet 20 mg PO BEDTIME RF: 0 omeprazole 20 mg capsule,delayed release(DR/EC) 20 mg PO BEDTIME RF: 0 albuterol sulfate [ProAir HFA] 90 mcg/actuation HFA aerosol inhaler 2 puff inhalation Q4H PRN (Reason: Dyspnea) RF: 0 Flovent HFA 110 mcg/actuation HFA aerosol inhaler 2 puff inhalation BID RF: 0 tizanidine 4 mg Tablet 4 mg PO BEDTIME RF: 0 isosorbide mononitrate 30 mg Tablet Extended Release 24 Hr 30 mg PO DAILY RF: 0 cholecalciferol (vitamin D3) 50 mcg (2,000 unit) Capsule 50 mcg PO DAILY RF: 0 pregabalin [Lyrica] 100 mg Capsule 100 mg PO BID Qty: 10 RF: 0
[2021-03-31 21:37] LABS: MANUAL DIFF FLAG NO
[2021-03-31 21:39] LABS: VBG Base Excess 2.8 mmol/L; VBG HCO3 29 mmol/L (22-26); VBG pCO2 54 mmHg; VBG pH 7.34 (7.32-7.43); VBG pO2 47 mmHg
[2021-03-31 21:39] LABS: Basophils Percent Auto 0.2 % (0-2); Eosinophils Absolute Auto 0.2 X10*3/uL (0.0-0.4); Eosinophils Percent Auto 1.8 % (0-4); Hematocrit 36.9 % (37-47); Hemoglobin 10.7 g/dl (12.0-16.0); Imm Gran Abs Auto 0.04 X10*3/uL (0.00-0.03); Imm Gran Pct Auto 0.4 % (0.0-0.4); Lymphocytes Percent Auto 10.7 % (20-40); Mean Corpuscular Hemoglobin 24.5 pg (27.0-33.0); Mean Corpuscular Volume 84.4 fL (80-98); Mean Platelet Volume 10.6 fL (9.4-12.3); Monocytes Absolute Auto 0.8 X10*3/uL (0.1-1.2); Neutrophils Absolute Auto 7.5 X10*3/uL (2.0-8.3); Neutrophils Percent Auto 78.9 % (45-73); Platelet Count 165 X10*3/uL (160-400); Red Blood Count 4.37 X10*6/uL (4.20-5.50); Red Cell Distribution Width 17.1 % (11.0-16.0); White Blood Count 9.5 X10*3/uL (4.8-10.8)
[2021-03-31 21:43] VITALS: BP 129/58; PULSE 81; RESP 15; O2SAT 98
[2021-03-31 21:43] LABS: Venous Blood Gas Refer to POC result
[2021-03-31 21:45] LABS: INTERNATIONAL NORM RATIO 0.9 (0.9-1.1); Prothrombin Time 10.6 SEC (9.9-13.0)
[2021-03-31 21:51] LABS: Lactic Acid 1.2 mmol/L (0.5-2.0)
[2021-03-31 21:56] LABS: Alanine Aminotransferase 14 U/L (0-31); Alkaline Phosphatase 89 U/L (39-117); Anion Gap 15 (12-20); Aspartate Amino Transferase 13 U/L (5-31); Bilirubin Total 0.4 mg/dL (0.0-1.0); Blood Urea Nitrogen 40 mg/dL (9-16); Calcium 8.7 mg/dL (8.4-10.2); Carbon Dioxide 27 mmol/L (22-29); Chloride 106 mmol/L (96-108); Creatinine Clr Calc Pharmacy 61.7; Estimated Glomerular Filt Rate 41; Glucose Random 247 mg/dL (60-115); Potassium 5.5 mmol/L (3.3-5.1); Sodium 142 mmol/L (135-145); Total Protein 7.3 g/dL (6.5-8.0)
[2021-03-31 21:59] LABS: B Type Natriuretic Peptide 457 pg/mL (<100)
[2021-03-31 22:00] LABS: COVID-19 Test Negative (Negative); IDNOW Serial# 9DD0AD1C
[2021-03-31] MEDS: methylPREDNISolone Sod Succ 125 MG/2 ML VIAL IVPUSH (22:25)
[2021-03-31] MEDS: Albuterol Sulfate (0.083%) 2.5 MG/3 ML VIAL.NEB 5 MG INHALE (22:31)
[2021-03-31 22:34] VITALS: PULSE 79; O2SAT 94
--- NOTE | 2021-03-31 23:14 | P.HPHOSP_ITS ---
History of Present Illness Date of Service: 03/31/21 Chief Complaint: SOB This is a 60-year-old female with past medical history of CKD, asthma, CHF, diabetes, HTN, nonischemic cardiomyopathy, DANIEL as well as obesity hypoventilation syndrome presents to the hospital with complaints of shortness of breath 2 weeks ago that worsened in the past few days. Patient denies having any chest pain, reports no increased cough or sputum production. Patient reports lower extremity edema, orthopnea, as well as PND. Patient reports that she saw her PCP 1 or 2 weeks ago and increased her Bumex to twice a day. She reports that her lower extremity edema improved but her shortness of breath did not get better. She denies any fever or chills, denies any sick contacts, reports no recent travel. Denies any abdominal pain nausea or vomiting, reports diarrhea for the past 2 weeks, watery, nonbloody, multiple times a day. Denies any recent antibiotic use. All other review of system negative On arrival to the ED patient hemodynamically stable with no significant abnormal vitals, currently on 2 L of oxygen satting 95% although no recorded hypoxia on vitals Labs are significant for WBC count of 9.5, pH of 7.34, CO2 of 54, otherwise unremarkable, potassium 5.5, BUN of 40, creatinine of 1.32 which is better than her usual baseline, BNP of 457 which is significantly more than her previous, COVID-19 negative Chest x-ray shows cardiomegaly with upper zone redistribution indicative of elevated left ventricular end-diastolic pressure consistent with mild pulmonary vascular congestion/CHF Patient was given 60 mg of Lasix in the ED and will be admitted for further management Review of Systems Review of Systems: Yes all other systems are reviewed and are negative [facility] Medical History Acute on chronic combined systolic and diastolic CHF (congestive heart failure) Asthma delivery delivered Chronic pain CKD (chronic kidney disease) stage 3, GFR 30-59 ml/min Congestive heart failure Depression Diabetes Diabetic neuropathy, painful High cholesterol Hypertension Morbid obesity NICM (nonischemic cardiomyopathy) Obesity hypoventilation syndrome DANIEL (obstructive sleep apnea) Pertinent family history: Negative for any history of CHF in the family Surgical History Hx of cholecystectomy Social History Household Members: Other Household Members Other:: GRANDSON Housing: Apartment Housing Other:: [facility] Do you presently have visiting nurse or other home services: Yes Alcohol intake: never Patient Tobacco Use Status: Former Tobacco user Tobacco use type: Cigarette Years Smoked: 38 Second Hand Smoke Exposure: No Substance Use Type: Marijuana Advance Directives: Yes Advance Directives Information Provided: Yes Advance Directives on File: Yes Advance Directives Date on File: 12/19/20 service: No Current occupational status: disabled Meds Allergies Allergy/AdvReac Type Severity Reaction Status Date / Time No Known Allergies Allergy Unverified 12/11/20 10:41 acetaminophen [Tylenol] AdvReac Unknown vommiting, Verified 11/22/20 21:28 itching ibuprofen AdvReac Unknown vommiting, Verified 11/22/20 21:28 itching morphine AdvReac Unknown vomiting Verified 11/22/20 21:28 Motrin Allergy Unknown itching Uncoded 09/21/19 00:00 Home Medications Medication Instructions Recorded Confirmed Last Taken Type albuterol sulfate 90 mcg/actuation 2 puff INHALATION Q4H PRN 11/23/20 04/01/21 1 Day Ago History aerosol inhaler (ProAir HFA) ~03/31/21 aspirin 81 mg tablet,delayed 81 mg PO DAILY 11/23/20 04/01/21 1 Day Ago History release ~03/31/21 fluoxetine 40 mg capsule 40 mg PO DAILY 11/23/20 04/01/21 1 Day Ago History ~03/31/21 fluticasone propionate 110 2 puff INHALATION BID 11/23/20 04/01/21 1 Day Ago History mcg/actuation HFA aerosol inhaler ~03/31/21 (Flovent HFA) metoprolol succinate 50 mg 50 mg PO DAILY 11/23/20 04/01/21 1 Day Ago History tablet,extended release 24 hr ~03/31/21 omeprazole 20 mg capsule,delayed 20 mg PO BEDTIME 11/23/20 04/01/21 1 Day Ago History release ~03/31/21 simvastatin 20 mg tablet 20 mg PO BEDTIME 11/23/20 04/01/21 1 Day Ago History ~03/31/21 cholecalciferol (vitamin D3) 50 50 mcg PO DAILY 12/11/20 04/01/21 1 Day Ago History mcg (2,000 unit) capsule ~03/31/21 isosorbide mononitrate 30 mg 30 mg PO DAILY 12/11/20 04/01/21 1 Day Ago History tablet,extended release 24 hr ~03/31/21 tizanidine 4 mg tablet 4 mg PO BEDTIME 12/11/20 04/01/21 1 Day Ago History ~03/31/21 gabapentin 400 mg capsule 1 cap PO TID 01/09/21 04/01/21 1 Day Ago History ~03/31/21 Physical Exam Vital Signs and Narrative: Vital Signs: Last Vital Signs Temp 98.9 F 03/31/21 20:35 Pulse 79 03/31/21 22:34 Resp 15 03/31/21 21:43 BP 129/58 L 03/31/21 21:43 Pulse Ox 98 03/31/21 21:43 Oxygen Flow Rate 2 03/31/21 20:35 Body Mass Index 55.7 Const: General: cooperative and no acute distress Orientation/consciousness: patient oriented x3 Eyes: General: appearance normal, both eyes and all related structures Pupils: Equal, round and reactive pupils present Resp: Effort & Inspection: normal respiratory effort Auscultation: clear to auscultation bilaterally Cardio: Rate: regular rate Rhythm: regular rhythm GI: Palpation (GI): Soft to palpation Auscultation: normal bowel sounds Skin: General skin exam: no rashes or lesions noted Neuro: General: patient oriented x3 Cranial nerves: Yes Equal, round and reactive pupils present Cognition (Neuro): normal cognition Extrem: Other: 1+ pedal edema bilaterally General: Yes normal to inspection Results Labs CBC and Chem 7: 03/31/21 21:26 03/31/21 21:26 Labs: Laboratory Results - last 24 hr 03/31/21 03/31/21 03/31/21 21:26 21:26 21:26 MCV 84.4 MCH 24.5 L MCHC 29.0 L RDW 17.1 H Plt Count 165 MPV 10.6 Immature Gran % (Auto) 0.4 Neut % (Auto) 78.9 H Lymph % (Auto) 10.7 L [place] % (Auto) 8.0 Eos % (Auto) 1.8 Baso % (Auto) 0.2 Lymph # (Auto) 1.0 L [place] # (Auto) 0.8 Eos # (Auto) 0.2 Baso # (Auto) 0.0 Abs Immat Gran (auto) 0.04 H Absolute Neuts (auto) 7.5 Absolute Nucleated RBC 0.000 Nucleated RBC % (auto) 0.0 PT 10.6 INR 0.9 VBG pH VBG pCO2 VBG pO2 VBG HCO3 VBG O2 Saturation VBG Base Excess Anion Gap 15 Estim Creat Clear Calc 61.7 Estimated GFR 41 Random Glucose 247 H Lactic Acid Calcium 8.7 Total Bilirubin 0.4 AST 13 ALT 14 Alkaline Phosphatase 89 B-Natriuretic Peptide Total Protein 7.3 Albumin 4.0 COVID-19 ([facility]) COVID-19 Clin Com 03/31/21 03/31/21 03/31/21 21:26 21:26 21:26 MCV MCH MCHC RDW Plt Count MPV Immature Gran % (Auto) Neut % (Auto) Lymph % (Auto) [place]arton % (Auto) Eos % (Auto) Baso % (Auto) Lymph # (Auto) [place] # (Auto) Eos # (Auto) Baso # (Auto) Abs Immat Gran (auto) Absolute Neuts (auto) Absolute Nucleated RBC Nucleated RBC % (auto) PT INR VBG pH VBG pCO2 VBG pO2 VBG HCO3 VBG O2 Saturation VBG Base Excess Anion Gap Estim Creat Clear Calc Estimated GFR Random Glucose Lactic Acid 1.2 Calcium Total Bilirubin AST ALT Alkaline Phosphatase B-Natriuretic Peptide 457 H Total Protein Albumin COVID-19 ([facility]) Negative COVID-19 Clin Com See Note 03/31/21 21:32 MCV MCH MCHC RDW Plt Count MPV Immature Gran % (Auto) Neut % (Auto) Lymph % (Auto) [place]arton % (Auto) Eos % (Auto) Baso % (Auto) Lymph # (Auto) [place] # (Auto) Eos # (Auto) Baso # (Auto) Abs Immat Gran (auto) Absolute Neuts (auto) Absolute Nucleated RBC Nucleated RBC % (auto) PT INR VBG pH 7.34 VBG pCO2 54 VBG pO2 47 VBG HCO3 29 H VBG O2 Saturation 66.0 VBG Base Excess 2.8 Anion Gap Estim Creat Clear Calc Estimated GFR Random Glucose Lactic Acid Calcium Total Bilirubin AST ALT Alkaline Phosphatase B-Natriuretic Peptide Total Protein Albumin COVID-19 ([facility]) COVID-19 Clin Com ECG Interpretation: Chest x-ray shows normal sinus rhythm with no significant abnormality otherwise Imaging Radiologist's Impressions: Impressions Chest X-Ray 03/31/21 21:48 IMPRESSION: Cardiomegaly with upper zone redistribution indicative of elevated left ventricular end-diastolic pressure consistent with mild pulmonary vascular congestion/CHF Assessment and Plan (1) CHF exacerbation: Status: Acute 60-year-old female with past medical history of CHF presents hospital with dyspnea orthopnea, lower extremity edema # acute CHF exacerbation - patient on Bumex at home - reports orthopnea, PND, dyspnea, lower extremity edema - has an echocardiogram from November of this year that showed an ejection fraction of 40-45% - will start her on Bumex 2 mg IV b.i.d. - will consult Cardiology, obtain an echocardiogram - strict I&O, daily weight, low-sodium diet # COPD - does not appear to be in exacerbation - has no cough no increased sputum production - will place her on DuoNeb p.r.n. # HTN - stable - continue home medications # diabetes - continue home insulin - will add low-dose sliding scale insulin - diabetic diet DVT prophylaxis: Heparin subQ Quality Stroke Does the patient have a stroke diagnosis?: No VTE Prior VTE?: No VTE Risk Level:: Medical - moderate - high VTE Device Contraindication: Treatment Not Indicated VTE Drug Contraindication: N/A - Med Ordered
[2021-04-01] VITALS (10 sets, daily range): BP systolic 111–175; BP diastolic 50–74; PULSE 70–88; RESP 14–23; TEMP 36.2–36.7; O2SAT 91–97
[2021-04-01 00:30] LABS: Troponin-I High Sensitivity 13.3 ng/L (<3.5-17.0)
[2021-04-01] MEDS: Furosemide 100 MG/10 ML VIAL 60 MG IVPUSH (00:51)
--- NOTE | 2021-04-01 07:27 | PC.NURSE ---
report taken from rony lindsay, pt sleeping in bed- resp even and unlabored. pt remains on o2 and is 98%. vss. awaiting bed # for admission.
[2021-04-01 07:40] LABS: Hematocrit 34.7 % (37-47); Hemoglobin 10.1 g/dl (12.0-16.0); Imm Gran Abs Auto 0.06 X10*3/uL (0.00-0.03); Imm Gran Pct Auto 0.7 % (0.0-0.4); Lymphocytes Absolute Auto 0.5 X10*3/uL (1.2-4.9); Lymphocytes Percent Auto 6.4 % (20-40); MANUAL DIFF FLAG SCAN; Mean Corpuscular HGB Conc 29.1 g/dl (31.0-35.0); Mean Corpuscular Hemoglobin 24.6 pg (27.0-33.0); Mean Corpuscular Volume 84.4 fL (80-98); Mean Platelet Volume 10.7 fL (9.4-12.3); Monocytes Absolute Auto 0.1 X10*3/uL (0.1-1.2); Monocytes Percent Auto 1.3 % (2-11); Neutrophils Absolute Auto 7.6 X10*3/uL (2.0-8.3); Neutrophils Percent Auto 91.6 % (45-73); Platelet Count 149 X10*3/uL (160-400); Red Blood Count 4.11 X10*6/uL (4.20-5.50); Red Cell Distribution Width 16.9 % (11.0-16.0); SCAN SMEAR FLAG 1; White Blood Count 8.3 X10*3/uL (4.8-10.8)
[2021-04-01 07:57] LABS: Glucose, Whole Blood 369 mg/dL (60-115)
[2021-04-01 08:01] LABS: Anion Gap 15 (12-20); Blood Urea Nitrogen 45 mg/dL (9-16); Calcium 8.3 mg/dL (8.4-10.2); Carbon Dioxide 28 mmol/L (22-29); Chloride 104 mmol/L (96-108); Creatinine Clr Calc Pharmacy 53.6; Estimated Glomerular Filt Rate 35; Glucose Random 428 mg/dL (60-115); Potassium 6.3 mmol/L (3.3-5.1); Sodium 141 mmol/L (135-145)
[2021-04-01 08:17] LABS: SLIDE REVIEW VERIFIED
[2021-04-01] MEDS: Bumetanide 1 MG/4 ML VIAL 2 MG IVPUSH ×2 (08:30→20:30)
[2021-04-01] MEDS: Sodium Zirconium Cyclosilicate 10 GM POWD.PACK PO ×2 (08:30→14:09)
[2021-04-01] MEDS: Sodium Polystyrene Sulfon/Sorb 15 GM/60 ML ORAL.SUSP PO (08:32)
[2021-04-01] MEDS: Insulin Regular, Human 100 UNIT/ML 3 ML VIAL IVPUSH (08:32)
[2021-04-01] MEDS: Insulin Lispro 100 UNIT/ML 3 ML VIAL SUBCUT ×4 (08:33→20:29)
[2021-04-01] MEDS: 0.9 % Sodium Chloride Flush 3 ML SYRINGE IVFLUSH ×2 (08:34→16:30)
[2021-04-01] MEDS: Insulin Glargine,Hum.rec.anlog 100 UNIT/ML 10 ML VIAL 10 UNIT SUBCUT (08:34)
[2021-04-01] MEDS: Cholecalciferol (Vitamin D3) 25 MCG TABLET 50 MCG PO (08:34)
[2021-04-01] MEDS: amLODIPine Besylate 5 MG TABLET PO (08:35)
[2021-04-01] MEDS: FLUoxetine HCl 20 MG CAPSULE 40 MG PO (08:35)
[2021-04-01] MEDS: Gabapentin 400 MG CAPSULE PO ×3 (08:35→20:30)
[2021-04-01] MEDS: Aspirin Enteric Coated 81 MG TABLET.DR PO (08:35)
[2021-04-01] MEDS: Isosorbide Mononitrate 30 MG TAB.ER.24H PO (08:35)
[2021-04-01] MEDS: Metoprolol Succinate ER 50 MG TAB.ER.24H PO (08:35)
[2021-04-01] MEDS: Calcium Gluconate/NaCl,Iso-Osm 1 GM/50 ML PLAST..BAG IV (08:47)
[2021-04-01] MEDS: Pregabalin 100 MG CAPSULE PO ×2 (08:47→20:30)
[2021-04-01 10:30] LABS: Glucose, Whole Blood 358 mg/dL (60-115)
--- NOTE | 2021-04-01 11:49 | HO.PM.IMPN ---
Subjective Subjective Date of Service: 04/01/21 Interval History: the patient was seen and evaluated this morning Laying in bed, feels little better the still complaining of significant shortness of breath and weakness Potassium level elevated above 6 this morning Denies any fever, chills or chest pain No reported other overnight events. Systemic review: No fever, chills complaining of general weakness and lethargy No chest pain, palpitation Shortness of breath and difficulty breathing No abdominal pain, nausea or vomiting No urinary symptoms No any rash or wounds Physical Exam Vital Signs: Vital Signs: Last Vital Signs Temp 98.9 F 03/31/21 20:35 Pulse 80 04/01/21 10:27 Resp 17 04/01/21 10:27 BP 124/54 L 04/01/21 10:27 Pulse Ox 96 04/01/21 10:27 Oxygen Flow Rate 2 03/31/21 20:35 Body Mass Index 55.7 Const: Other: Constitutional : Alert, oriented, looks ill and weak Neck : Normal inspection, Supple Cardiovascular : RRR, S1 S2, +2 lower extremity edema Respiratory : Fair bilateral air entry, basal fine crackles, wheezes or rhonchi common oxygen supplement Gastrointestinal: soft, lax, Normal bowel sounds, Non tender Skin : Warm, Dry Neurological : Alert & oriented x3, No focal deficit Objective Data Active Medications Albuterol/Ipratropium (Albuterol/Iprat 2.5/0.5mg 3 Ml Ampul.Neb) 3 ml INHALE RQ4H WHILE AWAKE PRN PRN Reason: Shortness Of Breath/Wheezing Amlodipine Besylate (Amlodipine Besylate 5 Mg Tablet) 5 mg PO DAILY [facility]; Protocol Last Admin: 04/01/21 08:35 Dose: 5 mg Documented by: ANDRES Aspirin (Aspirin Enteric Coated 81 Mg Tablet.) 81 mg PO DAILY [facility] Last Admin: 04/01/21 08:35 Dose: 81 mg Documented by: ANDRES Atorvastatin Calcium (Atorvastatin Calcium 10 Mg Tablet) 10 mg PO BEDTIME [facility] Bumetanide (Bumetanide 1 Mg/4 Ml Vial) 2 mg IVPUSH BID [facility]; Protocol Last Admin: 04/01/21 08:30 Dose: 2 mg Documented by: ANDRES Dextrose (Dextrose 50 % 25 Gm/50 Ml Vial) 25 gm IVPUSH Q15M PRN; Protocol PRN Reason: per Hypoglycemia Standing Ord. Docusate Sodium (Docusate Sodium 100 Mg Capsule) 100 mg PO DAILY PRN PRN Reason: Constipation Fluoxetine HCl (Fluoxetine Hcl 20 Mg Capsule) 40 mg PO DAILY [facility] Last Admin: 04/01/21 08:35 Dose: 40 mg Documented by: ANDRES Gabapentin (Gabapentin 400 Mg Capsule) 400 mg PO TID [facility] Last Admin: 04/01/21 08:35 Dose: 400 mg Documented by: ANDRES Glucose (Glucose Gel 15 Gm Gel..Gram.) 15 gm PO Q15M PRN; Protocol PRN Reason: per Hypoglycemia Standing Ord. Heparin Sodium (Porcine) (Heparin Sodium,Porcine 5,000 Unit/Ml Vial) 5,000 unit SUBCUT Q12H [facility] Last Admin: 04/01/21 07:05 Dose: Not Given Documented by: JOSY Non-Admin Reason: Patient Asleep Insulin Glargine (Insulin Glargine,Hum.Rec.Anlog 100 Unit/Ml 10 Ml Vial) 60 unit SUBCUT BEDTIME [facility] Insulin Human Lispro (Insulin Lispro 100 Unit/Ml 3 Ml Vial) 0 unit SUBCUT QIDACHS [facility]; Protocol Last Admin: 04/01/21 08:33 Dose: 10 unit Documented by: ANDRES Isosorbide Mononitrate (Isosorbide Mononitrate 30 Mg Tab.Er.24h) 30 mg PO DAILY [facility]; Protocol Last Admin: 04/01/21 08:35 Dose: 30 mg Documented by: ANDRES Metoprolol Succinate (Metoprolol Succinate Er 50 Mg Tab.Er.24h) 50 mg PO DAILY [facility]; Protocol Last Admin: 04/01/21 08:35 Dose: 50 mg Documented by: ANDRES Omeprazole (Omeprazole 20 Mg Capsule.Dr) 20 mg PO BEDTIME [facility] Ondansetron HCl (Ondansetron Hcl 4 Mg/2 Ml Vial) 4 mg IVPUSH Q8H PRN PRN Reason: Nausea and Vomiting Pregabalin (Pregabalin 100 Mg Capsule) 100 mg PO BID [facility] Last Admin: 04/01/21 08:47 Dose: 100 mg Documented by: ANDRES Sodium Chloride (0.9 % Sodium Chloride Flush 3 Ml Syringe) 3 ml IVFLUSH QSHIFT [facility] Last Admin: 04/01/21 08:34 Dose: 3 ml Documented by: ANDRES Tizanidine HCl (Tizanidine Hcl 4 Mg Tablet) 4 mg PO BEDTIME [facility] Vitamin D (Cholecalciferol (Vitamin D3) 25 Mcg Tablet) 50 mcg PO DAILY [facility] Last Admin: 04/01/21 08:34 Dose: 50 mcg Documented by: ANDRES Labs CBC & Chem 7: 04/01/21 07:09 04/01/21 07:09 Labs: Laboratory Results - last 24 hr 03/31/21 03/31/21 03/31/21 21:26 21:26 21:26 MCV 84.4 MCH 24.5 L MCHC 29.0 L RDW 17.1 H Plt Count 165 MPV 10.6 Immature Gran % (Auto) 0.4 Neut % (Auto) 78.9 H Lymph % (Auto) 10.7 L [place] % (Auto) 8.0 Eos % (Auto) 1.8 Baso % (Auto) 0.2 Lymph # (Auto) 1.0 L [place] # (Auto) 0.8 Eos # (Auto) 0.2 Baso # (Auto) 0.0 Abs Immat Gran (auto) 0.04 H Absolute Neuts (auto) 7.5 Absolute Nucleated RBC 0.000 Nucleated RBC % (auto) 0.0 Smear Tech's Comments PT 10.6 INR 0.9 VBG pH VBG pCO2 VBG pO2 VBG HCO3 VBG O2 Saturation VBG Base Excess Anion Gap 15 Estim Creat Clear Calc 61.7 Estimated GFR 41 POC Glucose Random Glucose 247 H Lactic Acid Calcium 8.7 Total Bilirubin 0.4 AST 13 ALT 14 Alkaline Phosphatase 89 Troponin I High Sens B-Natriuretic Peptide Total Protein 7.3 Albumin 4.0 COVID-19 ([facility]) COVID-19 Clin Com 03/31/21 03/31/21 03/31/21 21:26 21:26 21:26 MCV MCH MCHC RDW Plt Count MPV Immature Gran % (Auto) Neut % (Auto) Lymph % (Auto) [place] % (Auto) Eos % (Auto) Baso % (Auto) Lymph # (Auto) [place] # (Auto) Eos # (Auto) Baso # (Auto) Abs Immat Gran (auto) Absolute Neuts (auto) Absolute Nucleated RBC Nucleated RBC % (auto) Smear Tech's Comments PT INR VBG pH VBG pCO2 VBG pO2 VBG HCO3 VBG O2 Saturation VBG Base Excess Anion Gap Estim Creat Clear Calc Estimated GFR POC Glucose Random Glucose Lactic Acid 1.2 Calcium Total Bilirubin AST ALT Alkaline Phosphatase Troponin I High Sens B-Natriuretic Peptide 457 H Total Protein Albumin COVID-19 ([facility]) Negative COVID-19 Clin Com See Note 03/31/21 04/01/21 04/01/21 21:32 00:04 07:09 MCV 84.4 MCH 24.6 L MCHC 29.1 L RDW 16.9 H Plt Count 149 L MPV 10.7 Immature Gran % (Auto) 0.7 H Neut % (Auto) 91.6 H Lymph % (Auto) 6.4 L [place] % (Auto) 1.3 L Eos % (Auto) 0.0 Baso % (Auto) 0.0 Lymph # (Auto) 0.5 L [place] # (Auto) 0.1 Eos # (Auto) 0.0 Baso # (Auto) 0.0 Abs Immat Gran (auto) 0.06 H Absolute Neuts (auto) 7.6 Absolute Nucleated RBC 0.000 Nucleated RBC % (auto) 0.0 Smear Tech's Comments VERIFIED PT INR VBG pH 7.34 VBG pCO2 54 VBG pO2 47 VBG HCO3 29 H VBG O2 Saturation 66.0 VBG Base Excess 2.8 Anion Gap Estim Creat Clear Calc Estimated GFR POC Glucose Random Glucose Lactic Acid Calcium Total Bilirubin AST ALT Alkaline Phosphatase Troponin I High Sens 13.3 B-Natriuretic Peptide Total Protein Albumin COVID-19 ([facility]) COVID-19 Clin Com 04/01/21 04/01/21 04/01/21 07:09 07:53 10:22 MCV MCH MCHC RDW Plt Count MPV Immature Gran % (Auto) Neut % (Auto) Lymph % (Auto) [place] % (Auto) Eos % (Auto) Baso % (Auto) Lymph # (Auto) [place] # (Auto) Eos # (Auto) Baso # (Auto) Abs Immat Gran (auto) Absolute Neuts (auto) Absolute Nucleated RBC Nucleated RBC % (auto) Smear Tech's Comments PT INR VBG pH VBG pCO2 VBG pO2 VBG HCO3 VBG O2 Saturation VBG Base Excess Anion Gap 15 Estim Creat Clear Calc 53.6 Estimated GFR 35 POC Glucose 369 H* 358 H* Random Glucose 428 H* Lactic Acid Calcium 8.3 L Total Bilirubin AST ALT Alkaline Phosphatase Troponin I High Sens B-Natriuretic Peptide Total Protein Albumin COVID-19 ([facility]) COVID-19 Clin Com Assessment and Plan (1) CHF exacerbation: Status: Acute (2) Dyspnea: Status: Acute (3) Hyperkalemia: Status: Acute (4) Hyperglycemia due to diabetes mellitus: Status: Acute Assessment and Plan: 60-year-old female with past medical history of CHF presents hospital with dyspnea orthopnea, lower extremity edema # acute diastolic CHF exacerbation Recent echocardiogram from November of this year that showed an ejection fraction of 40-45% Images concerning for fluid overload Continue Bumex 2 mg IV b.i.d. Pending Cardiology evaluation strict I&O, daily weight, low-sodium diet # hyperkalemia Potassium of 6.3 To give insulin, glucose and calcium gluconate Give lokelma and Kayexalate Repeat BMP this afternoon # hyperglycemia secondary to diabetes Give extra dose of Humalog and Lantus Continue SSI Bedtime home dose Lantus Monitor blood sugar and adjust doses as needed # COPD does not appear to be in exacerbation DuoNeb p.r.n. # HTN stable continue home medications DVT prophylaxis Heparin subQ Quality Stroke Does the patient have a stroke diagnosis?: No VTE Prior VTE?: No VTE Risk Level:: Medical - moderate - high VTE Device Contraindication: Treatment Not Indicated VTE Drug Contraindication: N/A - Med Ordered
--- NOTE | 2021-04-01 11:57 | PM.CNCAR ---
History of Present Illness History of Present Illness Date of Service: 04/01/21 Requesting physician: Hyacinth Stokes Chief complaint: CHF exacerbation Narrative: [age] year female with background history of morbid obesity, diastolic heart failure, nonischemic cardiomyopathy with ejection fraction of 50 55% obstructive sleep apnea, diabetes and hypertension who is presenting for shortness of breath and weight gain. She was seen in December 2020 for similar complaints. At that time she has stopped taking Lasix because she was peeing too much. She is saying that she has been taking her diuretics regularly. She is saying she drinks a lot of water because she feels thirsty all the time. Denying any extra salt intake. No other issues right now. Review of Systems Review of Systems: Short of breath, weight gain. Yes all other systems are reviewed and are negative [facility] Past Medical History Medical History Acute on chronic combined systolic and diastolic CHF (congestive heart failure) Asthma delivery delivered Chronic pain CKD (chronic kidney disease) stage 3, GFR 30-59 ml/min Congestive heart failure Depression Diabetes Diabetic neuropathy, painful High cholesterol Hypertension Morbid obesity NICM (nonischemic cardiomyopathy) Obesity hypoventilation syndrome DANIEL (obstructive sleep apnea) Surgical History Surgical History Hx of cholecystectomy Social History Social History Household Members: Other Household Members Other:: [employer]ANDSON Housing: Apartment Housing Other:: [facility] Do you presently have visiting nurse or other home services: Yes Alcohol intake: never Patient Tobacco Use Status: Former Tobacco user Tobacco use type: Cigarette Years Smoked: 38 Second Hand Smoke Exposure: No Substance Use Type: Marijuana Advance Directives: Yes Advance Directives Information Provided: Yes Advance Directives on File: Yes Advance Directives Date on File: 12/19/20 service: No Current occupational status: disabled Meds Allergies Allergy/AdvReac Type Severity Reaction Status Date / Time No Known Allergies Allergy Unverified 12/11/20 10:41 acetaminophen [Tylenol] AdvReac Unknown vommiting, Verified 11/22/20 21:28 itching ibuprofen AdvReac Unknown vommiting, Verified 11/22/20 21:28 itching morphine AdvReac Unknown vomiting Verified 11/22/20 21:28 Motrin Allergy Unknown itching Uncoded 09/21/19 00:00 Active Medications: Current Medications Generic Name Dose Route Start Last Admin Trade Name Pankaj PRN Reason Stop Dose Admin Albuterol/Ipratropium 3 ml 04/01/21 06:07 Albuterol/Iprat 2.5/0.5mg 3 Ml Ampul.Neb INHALE RQ4H WHILE AWAKE PRN Shortness Of Breath/Wheezing Amlodipine Besylate 5 mg 04/01/21 09:00 04/01/21 08:35 Amlodipine Besylate 5 Mg Tablet PO 5 mg DAILY [facility] Administration Protocol Aspirin 81 mg 04/01/21 09:00 04/01/21 08:35 Aspirin Enteric Coated 81 Mg Tablet.Dr PO 81 mg DAILY [facility] Administration Atorvastatin Calcium 10 mg 04/01/21 21:00 Atorvastatin Calcium 10 Mg Tablet PO BEDTIME [facility] Bumetanide 2 mg 04/01/21 09:00 04/01/21 08:30 Bumetanide 1 Mg/4 Ml Vial IVPUSH 2 mg BID [facility] Administration Protocol Dextrose 25 gm 04/01/21 01:12 Dextrose 50 % 25 Gm/50 Ml Vial IVPUSH Q15M PRN per Hypoglycemia Standing Ord. Protocol Docusate Sodium 100 mg 04/01/21 01:12 Docusate Sodium 100 Mg Capsule PO DAILY PRN Constipation Fluoxetine HCl 40 mg 04/01/21 09:00 04/01/21 08:35 Fluoxetine Hcl 20 Mg Capsule PO 40 mg DAILY [facility] Administration Gabapentin 400 mg 04/01/21 09:00 04/01/21 08:35 Gabapentin 400 Mg Capsule PO 400 mg TID [facility] Administration Glucose 15 gm 04/01/21 01:12 Glucose Gel 15 Gm Gel..Gram. PO Q15M PRN per Hypoglycemia Standing Ord. Protocol Heparin Sodium (Porcine) 5,000 unit 04/01/21 02:00 04/01/21 07:05 Heparin Sodium,Porcine 5,000 Unit/Ml Vial SUBCUT Not Given Q12H [facility] Insulin Glargine 60 unit 04/01/21 21:00 Insulin Glargine,Hum.Rec.Anlog 100 Unit/Ml 10 Ml Vial SUBCUT BEDTIME [facility] Insulin Human Lispro 0 unit 04/01/21 07:30 04/01/21 08:33 Insulin Lispro 100 Unit/Ml 3 Ml Vial SUBCUT 10 unit QIDACHS [facility] Administration Protocol Isosorbide Mononitrate 30 mg 04/01/21 09:00 04/01/21 08:35 Isosorbide Mononitrate 30 Mg Tab.Er.24h PO 30 mg DAILY [facility] Administration Protocol Metoprolol Succinate 50 mg 04/01/21 09:00 04/01/21 08:35 Metoprolol Succinate Er 50 Mg Tab.Er.24h PO 50 mg DAILY [facility] Administration Protocol Omeprazole 20 mg 04/01/21 21:00 Omeprazole 20 Mg Capsule. PO BEDTIME [facility] Ondansetron HCl 4 mg 04/01/21 01:12 Ondansetron Hcl 4 Mg/2 Ml Vial IVPUSH Q8H PRN Nausea and Vomiting Pregabalin 100 mg 04/01/21 09:00 04/01/21 08:47 Pregabalin 100 Mg Capsule PO 100 mg BID [facility] Administration Sodium Chloride 3 ml 04/01/21 01:12 04/01/21 08:34 0.9 % Sodium Chloride Flush 3 Ml Syringe IVFLUSH 3 ml QSHIFT [facility] Administration Tizanidine HCl 4 mg 04/01/21 21:00 Tizanidine Hcl 4 Mg Tablet PO BEDTIME [facility] Vitamin D 50 mcg 04/01/21 09:00 04/01/21 08:34 Cholecalciferol (Vitamin D3) 25 Mcg Tablet PO 50 mcg DAILY [facility] Administration Home Medications Medication Instructions Recorded Confirmed Last Taken Type albuterol sulfate 90 mcg/actuation 2 puff INHALATION Q4H PRN 11/23/20 04/01/21 1 Day Ago History aerosol inhaler (ProAir HFA) ~03/31/21 aspirin 81 mg tablet,delayed 81 mg PO DAILY 11/23/20 04/01/21 1 Day Ago History release ~03/31/21 fluoxetine 40 mg capsule 40 mg PO DAILY 11/23/20 04/01/21 1 Day Ago History ~03/31/21 fluticasone propionate 110 2 puff INHALATION BID 11/23/20 04/01/21 1 Day Ago History mcg/actuation HFA aerosol inhaler ~03/31/21 (Flovent HFA) metoprolol succinate 50 mg 50 mg PO DAILY 11/23/20 04/01/21 1 Day Ago History tablet,extended release 24 hr ~03/31/21 omeprazole 20 mg capsule,delayed 20 mg PO BEDTIME 11/23/20 04/01/21 1 Day Ago History release ~03/31/21 simvastatin 20 mg tablet 20 mg PO BEDTIME 11/23/20 04/01/21 1 Day Ago History ~03/31/21 cholecalciferol (vitamin D3) 50 50 mcg PO DAILY 12/11/20 04/01/21 1 Day Ago History mcg (2,000 unit) capsule ~03/31/21 isosorbide mononitrate 30 mg 30 mg PO DAILY 12/11/20 04/01/21 1 Day Ago History tablet,extended release 24 hr ~03/31/21 tizanidine 4 mg tablet 4 mg PO BEDTIME 12/11/20 04/01/21 1 Day Ago History ~03/31/21 gabapentin 400 mg capsule 1 cap PO TID 01/09/21 04/01/21 1 Day Ago History ~03/31/21 amlodipine 10 mg tablet 1 tab PO DAILY 04/01/21 04/01/21 03/31/21 History furosemide 20 mg tablet 20 mg PO DAILY@1700 04/01/21 04/01/21 03/31/21 History furosemide 20 mg tablet 40 mg PO DAILY 04/01/21 04/01/21 03/31/21 History Physical Exam Vital Signs: Vital Signs: Last Vital Signs Temp 98.9 F 03/31/21 20:35 Pulse 80 04/01/21 10:27 Resp 17 04/01/21 10:27 BP 124/54 L 04/01/21 10:27 Pulse Ox 96 04/01/21 10:27 Oxygen Flow Rate 2 03/31/21 20:35 Body Mass Index 55.7 GENERAL APPEARANCE:? Short of breath. NECK: no carotid bruit, + jugular venous distention. SKIN: no suspicious lesions, warm and dry. HEART: no murmurs, regular rate and rhythm. LUNGS:? Bilateral crackles. ABDOMEN: soft, nontender.? Distended. EXTREMITIES:? 2+ edema. PERIPHERAL PULSES: equal. NEUROLOGIC: No gross deficits, AAO X 3 Results Labs and Meds Result diagrams: 04/01/21 07:09 04/01/21 07:09 Lab results: Laboratory Results - last 24 hr 03/31/21 03/31/21 03/31/21 21:26 21:26 21:26 WBC 9.5 RBC 4.37 Hgb 10.7 L Hct 36.9 L MCV 84.4 MCH 24.5 L MCHC 29.0 L RDW 17.1 H Plt Count 165 MPV 10.6 Immature Gran % (Auto) 0.4 Neut % (Auto) 78.9 H Lymph % (Auto) 10.7 L [place] % (Auto) 8.0 Eos % (Auto) 1.8 Baso % (Auto) 0.2 Lymph # (Auto) 1.0 L [place] # (Auto) 0.8 Eos # (Auto) 0.2 Baso # (Auto) 0.0 Abs Immat Gran (auto) 0.04 H Absolute Neuts (auto) 7.5 Absolute Nucleated RBC 0.000 Nucleated RBC % (auto) 0.0 Smear Tech's Comments PT 10.6 INR 0.9 VBG pH VBG pCO2 VBG pO2 VBG HCO3 VBG O2 Saturation VBG Base Excess Sodium 142 Potassium 5.5 H Chloride 106 Carbon Dioxide 27 Anion Gap 15 BUN 40 H Creatinine 1.32 Estim Creat Clear Calc 61.7 Estimated GFR 41 POC Glucose Random Glucose 247 H Lactic Acid Calcium 8.7 Total Bilirubin 0.4 AST 13 ALT 14 Alkaline Phosphatase 89 Troponin I High Sens B-Natriuretic Peptide Total Protein 7.3 Albumin 4.0 COVID-19 ([facility]) COVID-[place] 03/31/21 03/31/21 03/31/21 21:26 21:26 21:26 WBC RBC Hgb Hct MCV MCH MCHC RDW Plt Count MPV Immature Gran % (Auto) Neut % (Auto) Lymph % (Auto) [place] % (Auto) Eos % (Auto) Baso % (Auto) Lymph # (Auto) [place] # (Auto) Eos # (Auto) Baso # (Auto) Abs Immat Gran (auto) Absolute Neuts (auto) Absolute Nucleated RBC Nucleated RBC % (auto) Smear Tech's Comments PT INR VBG pH VBG pCO2 VBG pO2 VBG HCO3 VBG O2 Saturation VBG Base Excess Sodium Potassium Chloride Carbon Dioxide Anion Gap BUN Creatinine Estim Creat Clear Calc Estimated GFR POC Glucose Random Glucose Lactic Acid 1.2 Calcium Total Bilirubin AST ALT Alkaline Phosphatase Troponin I High Sens B-Natriuretic Peptide 457 H Total Protein Albumin COVID-19 ([facility]) Negative [employer] Com See Note 03/31/21 04/01/21 04/01/21 21:32 00:04 07:09 WBC 8.3 RBC 4.11 L Hgb 10.1 L Hct 34.7 L MCV 84.4 MCH 24.6 L MCHC 29.1 L RDW 16.9 H Plt Count 149 L MPV 10.7 Immature Gran % (Auto) 0.7 H Neut % (Auto) 91.6 H Lymph % (Auto) 6.4 L [place] % (Auto) 1.3 L Eos % (Auto) 0.0 Baso % (Auto) 0.0 Lymph # (Auto) 0.5 L [place] # (Auto) 0.1 Eos # (Auto) 0.0 Baso # (Auto) 0.0 Abs Immat Gran (auto) 0.06 H Absolute Neuts (auto) 7.6 Absolute Nucleated RBC 0.000 Nucleated RBC % (auto) 0.0 Smear Tech's Comments VERIFIED PT INR VBG pH 7.34 VBG pCO2 54 VBG pO2 47 VBG HCO3 29 H VBG O2 Saturation 66.0 VBG Base Excess 2.8 Sodium Potassium Chloride Carbon Dioxide Anion Gap BUN Creatinine Estim Creat Clear Calc Estimated GFR POC Glucose Random Glucose Lactic Acid Calcium Total Bilirubin AST ALT Alkaline Phosphatase Troponin I High Sens 13.3 B-Natriuretic Peptide Total Protein Albumin COVID-19 ([facility]) COVID-19 Clin Com 04/01/21 04/01/21 04/01/21 07:09 07:53 10:22 WBC RBC Hgb Hct MCV MCH MCHC RDW Plt Count MPV Immature Gran % (Auto) Neut % (Auto) Lymph % (Auto) [place] % (Auto) Eos % (Auto) Baso % (Auto) Lymph # (Auto) [place] # (Auto) Eos # (Auto) Baso # (Auto) Abs Immat Gran (auto) Absolute Neuts (auto) Absolute Nucleated RBC Nucleated RBC % (auto) Smear Tech's Comments PT INR VBG pH VBG pCO2 VBG pO2 VBG HCO3 VBG O2 Saturation VBG Base Excess Sodium 141 Potassium 6.3 H* Chloride 104 Carbon Dioxide 28 Anion Gap 15 BUN 45 H Creatinine 1.52 H Estim Creat Clear Calc 53.6 Estimated GFR 35 POC Glucose 369 H* 358 H* Random Glucose 428 H* Lactic Acid Calcium 8.3 L Total Bilirubin AST ALT Alkaline Phosphatase Troponin I High Sens B-Natriuretic Peptide Total Protein Albumin COVID-19 ([facility]) COVID-19 Clin Com Imaging Radiologist's impression: Impressions Chest X-Ray 03/31/21 21:48 IMPRESSION: Cardiomegaly with upper zone redistribution indicative of elevated left ventricular end-diastolic pressure consistent with mild pulmonary vascular congestion/CHF Assessment and Plan (1) CHF exacerbation: Status: Acute 60-year-old female here for shortness of breath and volume overload. Clinically she is in heart failure. She was admitted in December with similar complaints and was diuresed at that stage. Currently significantly volume overloaded. Continue IV diuretics. Monitor electrolytes and weights closely. She is saying she watches salt but drinks lot of water. She needs to restrict fluid intake to 1500 mL per day. We will follow along with you. Thank you for allowing me to participate in the care of your patient. Please feel free to contact me if you have any questions. Procedures Date of Service Date of Service: 04/01/21
--- NOTE | 2021-04-01 13:12 | MHC.CM.PN ---
Met with patient in regards to discharge planning. Patient lives alone, ambulates with a cane/walker, has a VNA through [facility] and [employer] MANA[employer] through [employer]. Patient has been to [facility] in the past. Physical therapy eval for home safety will be needed when medically stable. Patient does not have oxygen at home but feels she needs it. Ambulating o2 sat will also be needed when medically stable. PCP verified. HCP verified to be on file. Patient has not received a Covid vaccine and does not want to obtain one. Patient feels she will need to return to short term rehab at [facility]. Referra made via [employer]. Continue to monitor for d/c needs.
[2021-04-01 13:19] LABS: Anion Gap 20 (12-20); Blood Urea Nitrogen 47 mg/dL (9-16); Calcium 8.4 mg/dL (8.4-10.2); Carbon Dioxide 21 mmol/L (22-29); Chloride 104 mmol/L (96-108); Creatinine Clr Calc Pharmacy 55.4; Estimated Glomerular Filt Rate 36; Glucose Random 378 mg/dL (60-115); Potassium 6.4 mmol/L (3.3-5.1); Sodium 139 mmol/L (135-145)
[2021-04-01 13:33] LABS: Glucose, Whole Blood 360 mg/dL (60-115)
[2021-04-01] MEDS: Heparin Sodium,Porcine 5,000 UNIT/ML VIAL 5000 UNIT SUBCUT (14:09)
[2021-04-01] MEDS: Insulin Regular, Human 100 UNIT/ML 3 ML VIAL 10 UNIT IVPUSH (14:10)
[2021-04-01 17:29] LABS: Glucose, Whole Blood 313 mg/dL (60-115)
[2021-04-01 19:30] LABS: Anion Gap 15 (12-20); Blood Urea Nitrogen 49 mg/dL (9-16); Calcium 8.7 mg/dL (8.4-10.2); Carbon Dioxide 29 mmol/L (22-29); Chloride 102 mmol/L (96-108); Creatinine Clr Calc Pharmacy 55.4; Estimated Glomerular Filt Rate 36; Glucose Random 313 mg/dL (60-115); Potassium 5.6 mmol/L (3.3-5.1); Sodium 140 mmol/L (135-145)
[2021-04-01 20:15] LABS: Glucose, Whole Blood 280 mg/dL (60-115)
[2021-04-01] MEDS: Insulin Glargine,Hum.rec.anlog 100 UNIT/ML 10 ML VIAL 50 UNIT SUBCUT (20:28)
[2021-04-01] MEDS: Omeprazole 20 MG CAPSULE.DR PO (20:30)
[2021-04-01] MEDS: TiZANidine HCL 4 MG TABLET PO (20:30)
[2021-04-01] MEDS: Atorvastatin Calcium 10 MG TABLET PO (20:31)
[2021-04-01 21:27] LABS: Glucose, Whole Blood 358 mg/dL (60-115)
[2021-04-01] MEDS: Melatonin 3 MG TABLET 6 MG PO (21:34)
[2021-04-01] MEDS: Docusate Sodium 100 MG CAPSULE PO (21:34)
[2021-04-02] VITALS (9 sets, daily range): BP systolic 118–171; BP diastolic 57–74; PULSE 68–80; RESP 18–20; TEMP 36.4–37.1; O2SAT 92–95
[2021-04-02] MEDS: Heparin Sodium,Porcine 5,000 UNIT/ML VIAL 5000 UNIT SUBCUT ×2 (02:17→14:32)
[2021-04-02 07:12] LABS: Hematocrit 36.1 % (37-47); Hemoglobin 10.7 g/dl (12.0-16.0); Mean Corpuscular HGB Conc 29.6 g/dl (31.0-35.0); Mean Corpuscular Hemoglobin 24.8 pg (27.0-33.0); Mean Corpuscular Volume 83.6 fL (80-98); Mean Platelet Volume 10.3 fL (9.4-12.3); Platelet Count 186 X10*3/uL (160-400); Red Blood Count 4.32 X10*6/uL (4.20-5.50); White Blood Count 14.3 X10*3/uL (4.8-10.8)
[2021-04-02 07:19] LABS: Glucose, Whole Blood 304 mg/dL (60-115)
[2021-04-02] MEDS: Bumetanide 1 MG/4 ML VIAL 2 MG IVPUSH ×2 (07:40→21:45)
[2021-04-02] MEDS: Insulin Lispro 100 UNIT/ML 3 ML VIAL SUBCUT ×4 (07:40→21:44)
[2021-04-02] MEDS: Aspirin Enteric Coated 81 MG TABLET.DR PO (07:42)
[2021-04-02] MEDS: Cholecalciferol (Vitamin D3) 25 MCG TABLET 50 MCG PO (07:42)
[2021-04-02] MEDS: Metoprolol Succinate ER 50 MG TAB.ER.24H PO (07:42)
[2021-04-02] MEDS: Gabapentin 400 MG CAPSULE PO ×3 (07:45→21:45)
[2021-04-02] MEDS: Pregabalin 100 MG CAPSULE PO ×2 (07:45→21:45)
[2021-04-02] MEDS: FLUoxetine HCl 20 MG CAPSULE 40 MG PO (07:45)
[2021-04-02] MEDS: amLODIPine Besylate 5 MG TABLET PO (07:46)
[2021-04-02] MEDS: 0.9 % Sodium Chloride Flush 3 ML SYRINGE IVFLUSH ×4 (07:46→21:46)
[2021-04-02] MEDS: Isosorbide Mononitrate 30 MG TAB.ER.24H PO (07:46)
[2021-04-02 07:49] LABS: Anion Gap 13 (12-20); Blood Urea Nitrogen 55 mg/dL (9-16); Calcium 8.7 mg/dL (8.4-10.2); Carbon Dioxide 31 mmol/L (22-29); Chloride 101 mmol/L (96-108); Creatinine Clr Calc Pharmacy 51.9; Estimated Glomerular Filt Rate 34; Glucose Random 342 mg/dL (60-115); Potassium 5.3 mmol/L (3.3-5.1); Sodium 140 mmol/L (135-145)
[2021-04-02] MEDS: Insulin Glargine,Hum.rec.anlog 100 UNIT/ML 10 ML VIAL 15 UNIT SUBCUT (09:02)
[2021-04-02] MEDS: Sodium Zirconium Cyclosilicate 10 GM POWD.PACK PO (09:02)
--- NOTE | 2021-04-02 10:11 | P.PNCA_ITS ---
Subjective Subjective Date of Service: 04/02/21 <LYNNE Gaytan - Last Filed: 04/02/21 11:01> 04/02/21 <Orlando Hebert MD - Last Filed: 04/02/21 19:18> Principal diagnosis: CHF, nonischemic CMP <LYNNE Gaytan - Last Filed: 04/02/21 11:01> Interval history: Cardiology follow up for the above. Seen at 0845. Today she is obeserved sitting on edge of bed. She reports breathing has improved some since admit. No cough, PND. Did sleep with HOB elevated some. No chest pains, palpitations, dizziness. Wearing O2 with cannula. Feels increased sob with O2 off. States she had been taking all her meds at home prior to admit but does state that she was drinking 5 - 8 water bottles daily due to thirst. <LYNNE Gaytan - Last Filed: 04/02/21 11:01> Review of Systems Review of Systems as above <LYNNE Gaytan - Last Filed: 04/02/21 11:01> Yes all other systems are reviewed and are negative <LYNNE Gaytan - Last Filed: 04/02/21 11:01> Physical Exam Vital Signs: Last Vital Signs Temp 97.6 F 04/02/21 07:42 Pulse 73 04/02/21 07:46 Resp 18 04/02/21 07:42 BP 130/59 L 04/02/21 07:46 Pulse Ox 95 04/02/21 07:42 Oxygen Flow Rate 2 03/31/21 20:35 Body Mass Index 55.7 <LYNNE Gaytan - Last Filed: 04/02/21 11:01> Const General: cooperative, no acute distress, alert and awake <LYNNE Gaytan Last Filed: 04/02/21 11:01> Orientation/consciousness: patient oriented x3 <LYNNE Gaytan Last Filed: 04/02/21 11:01> Neck Neck: Yes normal visual inspection <LNYNE Gaytan Last Filed: 04/02/21 11:01> Resp Effort & Inspection: normal respiratory effort and able to speak in complete sentences <Sandra LeyvaNINFAC - Last Filed: 04/02/21 11:01> Auscultation: clear to auscultation bilaterally (Diminished sounds), no rales, no rhonchi and no wheezes <Sandra LeyvaNINFA-C - Last Filed: 04/02/21 11:01> Cardio Jugular venous distension: JVD present <Sandra GordonNINFAC - Last Filed: 04/02/21 11:01> Palpation: normal PMI <Sandra GordonNINFAC - Last Filed: 04/02/21 11:01> Rate: regular rate <[facility] GordonNINFAC - Last Filed: 04/02/21 11:01> Rhythm: regular rhythm <Sandra GordonNINFA - Last Filed: 04/02/21 11:01> Heart sounds: S1 normal heart sound present and S2 normal heart sound present <Sandra GordonNINFAC - Last Filed: 04/02/21 11:01> GI Other: Obese, rounded, firm <Sandra GordonNINFAC - Last Filed: 04/02/21 11:01> Neuro General: patient oriented x3 <Sandra Oden GordonNINFA-C - Last Filed: 04/02/21 11:01> Results Labs and Meds Result diagrams: : 04/02/21 06:19 04/02/21 13:00 <Sandra Oden GordonNINFA-C - Last Filed: 04/02/21 11:01> Lab results: Laboratory Results - last 24 hr 04/01/21 04/01/21 04/01/21 10:22 12:39 13:29 WBC RBC Hgb Hct MCV MCH MCHC RDW Plt Count MPV Absolute Nucleated RBC Nucleated RBC % (auto) Sodium 139 Potassium 6.4 H* Chloride 104 Carbon Dioxide 21 L Anion Gap 20 BUN 47 H Creatinine 1.47 H Estim Creat Clear Calc 55.4 Estimated GFR 36 POC Glucose 358 H* 360 H* Random Glucose 378 H* Calcium 8.4 04/01/21 04/01/21 04/01/21 16:36 17:24 18:45 WBC RBC Hgb Hct MCV MCH MCHC RDW Plt Count MPV Absolute Nucleated RBC Nucleated RBC % (auto) Sodium 140 Potassium 5.6 H Chloride 102 Carbon Dioxide 29 Anion Gap 15 BUN 49 H Creatinine 1.47 H Estim Creat Clear Calc 55.4 Estimated GFR 36 POC Glucose 358 H* 313 H Random Glucose 313 H Calcium 8.7 04/01/21 04/02/21 04/02/21 20:08 06:19 06:19 WBC 14.3 H RBC 4.32 Hgb 10.7 L Hct 36.1 L MCV 83.6 MCH 24.8 L MCHC 29.6 L RDW 17.0 H Plt Count 186 MPV 10.3 Absolute Nucleated RBC 0.000 Nucleated RBC % (auto) 0.0 Sodium 140 Potassium 5.3 H Chloride 101 Carbon Dioxide 31 H Anion Gap 13 BUN 55 H Creatinine 1.57 H Estim Creat Clear Calc 51.9 Estimated GFR 34 POC Glucose 280 H Random Glucose 342 H Calcium 8.7 04/02/21 07:10 WBC RBC Hgb Hct MCV MCH MCHC RDW Plt Count MPV Absolute Nucleated RBC Nucleated RBC % (auto) Sodium Potassium Chloride Carbon Dioxide Anion Gap BUN Creatinine Estim Creat Clear Calc Estimated GFR POC Glucose 304 H Random Glucose Calcium <LYNNE Gaytan - Last Filed: 04/02/21 11:01> Progress Note: A&P Assessment and plan (1) Acute on chronic combined systolic and diastolic CHF (congestive heart failure): Status: Acute <LYNNE Gaytan - Last Filed: 04/02/21 11:01> Assessment and Plan: ?Admit with increased sob, edema. CXR with findings consistent with CHF. BNP elevated at 457. Being treated for CHF. Admiit in November and December 2020 also for CHF. Did not come for OV after these admits. Hx of nonischemic CMP with prior known EF 50-55%. Echo November 2020 with EF 40-45%, grade I diastolic dysfunction, wall motion abnormality with regionality inferior/ inferiorlateral wall.? Cardiac cath in 2017 was normal.? This admit, Being diuresed with IV Bume x with some improvement in breathing. On exam today she does have JVD and dim lungs. Wearing O2 4liters and sat 95%. Cr 1.57, up from 1.47 yesterday. No outpt documented. Still seems fluid overloaded. Continue IV Bumex. Ongoing strict I+O monitoring. Close monitoring of electrolyte and kidney function.? BMP, BNP in am. O2 use as needed for sat >90%.? Recent sleep study shows mild DANIEL and recommendation for CPAP/ Bipap which will be pursued further as outpt. This may be contributing to her heart failure exacerbations and reduced EF. She also admits to drinking large volumes of water at home which is adding to her HF. Continue 1500cc fluid restriction. She is a good candidate for [employer] monitoring system to help with prevention of recurrent HF admission and assist with outpt HF managment. Reviewed this again with her and she reports difficulty getting to outpt appointments due to limited transportation, does not drive. Will try to arrange hospital transportations services for her outpt follow up. We will continue to follow.? <LYNNE Gaytan - Last Filed: 04/02/21 11:01> (2) NICM (nonischemic cardiomyopathy): Status: Acute <LYNNE Gaytan - Last Filed: 04/02/21 11:01> Assessment and Plan: as above <LYNNE Gaytan - Last Filed: 04/02/21 11:01> (3) Morbid obesity: Status: Acute <LYNNE Gaytan - Last Filed: 04/02/21 11:01> Fall Risk Details Current Medications: Current Medications Generic Name Dose Route Start Last Admin Trade Name Freq PRN Reason Stop Dose Admin Albuterol/Ipratropium 3 ml 04/01/21 06:07 Albuterol/Iprat 2.5/0.5mg 3 Ml Ampul.Neb INHALE RQ4H WHILE AWAKE PRN Shortness Of Breath/Wheezing Amlodipine Besylate 5 mg 04/01/21 09:00 04/02/21 07:46 Amlodipine Besylate 5 Mg Tablet PO 5 mg DAILY HI Administration Protocol Aspirin 81 mg 04/01/21 09:00 04/02/21 07:42 Aspirin Enteric Coated 81 Mg Tablet. PO 81 mg DAILY HI Administration Atorvastatin Calcium 10 mg 04/01/21 21:00 04/01/21 20:31 Atorvastatin Calcium 10 Mg Tablet PO 10 mg BEDTIME HI Administration Bumetanide 2 mg 04/01/21 09:00 04/02/21 07:40 Bumetanide 1 Mg/4 Ml Vial IVPUSH 2 mg BID HI Administration Protocol Dextrose 25 gm 04/01/21 01:12 Dextrose 50 % 25 Gm/50 Ml Vial IVPUSH Q15M PRN per Hypoglycemia Standing Ord. Protocol Docusate Sodium 100 mg 04/01/21 01:12 04/01/21 21:34 Docusate Sodium 100 Mg Capsule PO 100 mg DAILY PRN Administration Constipation Fluoxetine HCl 40 mg 04/01/21 09:00 04/02/21 07:45 Fluoxetine Hcl 20 Mg Capsule PO 40 mg DAILY HI Administration Gabapentin 400 mg 04/01/21 09:00 04/02/21 07:45 Gabapentin 400 Mg Capsule PO 400 mg TID HI Administration Glucose 15 gm 04/01/21 01:12 Glucose Gel 15 Gm Gel..Gram. PO Q15M PRN per Hypoglycemia Standing Ord. Protocol Heparin Sodium (Porcine) 5,000 unit 04/01/21 02:00 04/02/21 02:17 Heparin Sodium,Porcine 5,000 Unit/Ml Vial SUBCUT 5,000 unit Q12H HI Administration Insulin Glargine 60 unit 04/02/21 21:00 Insulin Glargine,Hum.Rec.Anlog 100 Unit/Ml 10 Ml Vial SUBCUT BEDTIME HI Insulin Human Lispro 0 unit 04/01/21 07:30 04/02/21 07:40 Insulin Lispro 100 Unit/Ml 3 Ml Vial SUBCUT 8 unit QIDACHS [facility] Administration Protocol Isosorbide Mononitrate 30 mg 04/01/21 09:00 04/02/21 07:46 Isosorbide Mononitrate 30 Mg Tab.Er.24h PO 30 mg DAILY HI Administration Protocol Melatonin 6 mg 04/01/21 20:38 04/01/21 21:34 Melatonin 3 Mg Tablet PO 6 mg BEDTIME PRN Administration Insomnia Metoprolol Succinate 50 mg 04/01/21 09:00 04/02/21 07:42 Metoprolol Succinate Er 50 Mg Tab.Er.24h PO 50 mg DAILY HI Administration Protocol Omeprazole 20 mg 04/01/21 21:00 04/01/21 20:30 Omeprazole 20 Mg Capsule.Dr PO 20 mg BEDTIME HI Administration Ondansetron HCl 4 mg 04/01/21 01:12 Ondansetron Hcl 4 Mg/2 Ml Vial IVPUSH Q8H PRN Nausea and Vomiting Pregabalin 100 mg 04/01/21 09:00 04/02/21 07:45 Pregabalin 100 Mg Capsule PO 100 mg BID HI Administration Sodium Chloride 3 ml 04/01/21 01:12 04/02/21 07:46 0.9 % Sodium Chloride Flush 3 Ml Syringe IVFLUSH 3 ml QSHIFT HI Administration Tizanidine HCl 4 mg 04/01/21 21:00 04/01/21 20:30 Tizanidine Hcl 4 Mg Tablet PO 4 mg BEDTIME HI Administration Vitamin D 50 mcg 04/01/21 09:00 04/02/21 07:42 Cholecalciferol (Vitamin D3) 25 Mcg Tablet PO 50 mcg DAILY HI Administration <LYNNE Gaytan - Last Filed: 04/02/21 11:01> Time Spent With Patient Time: Total time spent is greater than 50% in coordination of care (as documented) at patient's floor/unit and/or counseling patient: <LYNNE Gaytan - Last Filed: 04/02/21 11:01> Time with patient: 25 - 35 minutes <LYNNE Gaytan - Last Filed: 04/02/21 11:01> Progress Note: Quality Stroke Does the patient have a stroke diagnosis?: No <LYNNE Gaytan - Last Filed: 04/02/21 11:01> Procedures Date of Service Date of Service: 04/02/21 <LYNNE Gaytan - Last Filed: 04/02/21 11:01>
[2021-04-02 11:23] LABS: Glucose, Whole Blood 276 mg/dL (60-115)
--- NOTE | 2021-04-02 11:40 | PC.NURSE ---
Skin assessment completed today. There are no open areas or pressure areas on skin. Patient is able to turn self.
[2021-04-02 13:22] LABS: Anion Gap 12 (12-20); Blood Urea Nitrogen 56 mg/dL (9-16); Calcium 8.5 mg/dL (8.4-10.2); Carbon Dioxide 33 mmol/L (22-29); Chloride 102 mmol/L (96-108); Creatinine Clr Calc Pharmacy 59.1; Estimated Glomerular Filt Rate 39; Glucose Random 269 mg/dL (60-115); Potassium 4.8 mmol/L (3.3-5.1); Sodium 142 mmol/L (135-145)
--- NOTE | 2021-04-02 14:03 | HO.PM.IMPN ---
Subjective Subjective Date of Service: 04/02/21 Interval History: the patient was seen and evaluated this morning still complaining of significant shortness of breath and weakness requiring oxygen supplement Potassium level improved Denies any fever, chills or chest pain No reported other overnight events. Systemic review: No fever, chills complaining of general weakness and lethargy with dizziness upon standing up No chest pain, palpitation Shortness of breath and difficulty breathing No abdominal pain, nausea or vomiting No urinary symptoms No any rash or wounds Physical Exam Vital Signs: Vital Signs: Last Vital Signs Temp 97.6 F 04/02/21 07:42 Pulse 78 04/02/21 11:26 Resp 18 04/02/21 07:42 BP 171/74 H 04/02/21 11:26 Pulse Ox 95 04/02/21 07:42 Oxygen Flow Rate 2 03/31/21 20:35 Body Mass Index 55.7 Const: Other: Constitutional : Alert, oriented, looks week but little better than yesterday Neck : Normal inspection, Supple Cardiovascular : RRR, S1 S2, +1 lower extremity edema Respiratory : Fair bilateral air entry, basal fine crackles, wheezes or rhonchi , on oxygen supplement Gastrointestinal: soft, lax, Normal bowel sounds, Non tender Skin : Warm, Dry Neurological : Alert & oriented x3, No focal deficit Objective Data Active Medications Albuterol/Ipratropium (Albuterol/Iprat 2.5/0.5mg 3 Ml Ampul.Neb) 3 ml INHALE RQ4H WHILE AWAKE PRN PRN Reason: Shortness Of Breath/Wheezing Amlodipine Besylate (Amlodipine Besylate 5 Mg Tablet) 5 mg PO DAILY [facility]; Protocol Last Admin: 04/02/21 07:46 Dose: 5 mg Documented by: LUCIEN Aspirin (Aspirin Enteric Coated 81 Mg Tablet.) 81 mg PO DAILY [facility] Last Admin: 04/02/21 07:42 Dose: 81 mg Documented by: LUCIEN Atorvastatin Calcium (Atorvastatin Calcium 10 Mg Tablet) 10 mg PO BEDTIME HI Last Admin: 04/01/21 20:31 Dose: 10 mg Documented by: TORI Bumetanide (Bumetanide 1 Mg/4 Ml Vial) 2 mg IVPUSH BID [facility]; Protocol Last Admin: 04/02/21 07:40 Dose: 2 mg Documented by: LUCIEN Dextrose (Dextrose 50 % 25 Gm/50 Ml Vial) 25 gm IVPUSH Q15M PRN; Protocol PRN Reason: per Hypoglycemia Standing Ord. Docusate Sodium (Docusate Sodium 100 Mg Capsule) 100 mg PO DAILY PRN PRN Reason: Constipation Last Admin: 04/01/21 21:34 Dose: 100 mg Documented by: TORI Fluoxetine HCl (Fluoxetine Hcl 20 Mg Capsule) 40 mg PO DAILY [facility] Last Admin: 04/02/21 07:45 Dose: 40 mg Documented by: LUCIEN Gabapentin (Gabapentin 400 Mg Capsule) 400 mg PO TID [facility] Last Admin: 04/02/21 07:45 Dose: 400 mg Documented by: LUCIEN Glucose (Glucose Gel 15 Gm Gel..Gram.) 15 gm PO Q15M PRN; Protocol PRN Reason: per Hypoglycemia Standing Ord. Heparin Sodium (Porcine) (Heparin Sodium,Porcine 5,000 Unit/Ml Vial) 5,000 unit SUBCUT Q12H [facility] Last Admin: 04/02/21 02:17 Dose: 5,000 unit Documented by: TORI Insulin Glargine (Insulin Glargine,Hum.Rec.Anlog 100 Unit/Ml 10 Ml Vial) 60 unit SUBCUT BEDTIME [facility] Insulin Human Lispro (Insulin Lispro 100 Unit/Ml 3 Ml Vial) 0 unit SUBCUT QIDACHS [facility]; Protocol Last Admin: 04/02/21 11:53 Dose: 6 unit Documented by: LUCIEN Isosorbide Mononitrate (Isosorbide Mononitrate 30 Mg Tab.Er.24h) 30 mg PO DAILY [facility]; Protocol Last Admin: 04/02/21 07:46 Dose: 30 mg Documented by: LUCIEN Melatonin (Melatonin 3 Mg Tablet) 6 mg PO BEDTIME PRN PRN Reason: Insomnia Last Admin: 04/01/21 21:34 Dose: 6 mg Documented by: TORI Metoprolol Succinate (Metoprolol Succinate Er 50 Mg Tab.Er.24h) 50 mg PO DAILY [facility]; Protocol Last Admin: 04/02/21 07:42 Dose: 50 mg Documented by: LUCIEN Omeprazole (Omeprazole 20 Mg Capsule.Dr) 20 mg PO BEDTIME [facility] Last Admin: 04/01/21 20:30 Dose: 20 mg Documented by: TORI Ondansetron HCl (Ondansetron Hcl 4 Mg/2 Ml Vial) 4 mg IVPUSH Q8H PRN PRN Reason: Nausea and Vomiting Pregabalin (Pregabalin 100 Mg Capsule) 100 mg PO BID [facility] Last Admin: 04/02/21 07:45 Dose: 100 mg Documented by: LUCIEN Sodium Chloride (0.9 % Sodium Chloride Flush 3 Ml Syringe) 3 ml IVFLUSH QSHIFT [facility] Last Admin: 04/02/21 07:46 Dose: 3 ml Documented by: LUCIEN Tizanidine HCl (Tizanidine Hcl 4 Mg Tablet) 4 mg PO BEDTIME [facility] Last Admin: 04/01/21 20:30 Dose: 4 mg Documented by: TORI Vitamin D (Cholecalciferol (Vitamin D3) 25 Mcg Tablet) 50 mcg PO DAILY [facility] Last Admin: 04/02/21 07:42 Dose: 50 mcg Documented by: LUCIEN Labs CBC & Chem 7: 04/02/21 06:19 04/02/21 13:00 Labs: Laboratory Results - last 24 hr 04/01/21 04/01/21 04/01/21 16:36 17:24 18:45 MCV MCH MCHC RDW Plt Count MPV Absolute Nucleated RBC Nucleated RBC % (auto) Anion Gap 15 Estim Creat Clear Calc 55.4 Estimated GFR 36 POC Glucose 358 H* 313 H Random Glucose 313 H Calcium 8.7 04/01/21 04/02/21 04/02/21 20:08 06:19 06:19 MCV 83.6 MCH 24.8 L MCHC 29.6 L RDW 17.0 H Plt Count 186 MPV 10.3 Absolute Nucleated RBC 0.000 Nucleated RBC % (auto) 0.0 Anion Gap 13 Estim Creat Clear Calc 51.9 Estimated GFR 34 POC Glucose 280 H Random Glucose 342 H Calcium 8.7 04/02/21 04/02/21 04/02/21 07:10 11:10 13:00 MCV MCH MCHC RDW Plt Count MPV Absolute Nucleated RBC Nucleated RBC % (auto) Anion Gap 12 Estim Creat Clear Calc 59.1 Estimated GFR 39 POC Glucose 304 H 276 H Random Glucose 269 H Calcium 8.5 Microbiology Microbiology Results: Microbiology 03/31/21 21:26 Blood Culture - Preliminary Blood - Venous No growth after 24 hours. 03/31/21 21:26 Blood Culture - Preliminary Blood - Venous No growth after 24 hours. Assessment and Plan (1) Morbid obesity: Status: Acute (2) Acute on chronic combined systolic and diastolic CHF (congestive heart failure): Status: Acute (3) Hyperglycemia due to diabetes mellitus: Status: Acute (4) Hyperkalemia: Status: Acute Assessment and Plan: 60-year-old female with past medical history of CHF presents hospital with dyspnea orthopnea, lower extremity edema # acute diastolic CHF exacerbation Recent echocardiogram from November of this year that showed an ejection fraction of 40-45% Images concerning for fluid overload Continue Bumex 2 mg IV b.i.d. Cardiology input appreciated Water restriction strict I&O, daily weight, low-sodium diet # hyperkalemia Elevated at 5.3 this morning Received irvingma Repeat BMP this afternoon # hyperglycemia secondary to diabetes Give extra dose of Lantus this morning Continue SSI Bedtime home 60 units Lantus Monitor blood sugar and adjust doses as needed # COPD does not appear to be in exacerbation DuoNeb p.r.n. # HTN stable continue home medications DVT prophylaxis Heparin subQ Quality Stroke Does the patient have a stroke diagnosis?: No VTE Prior VTE?: No VTE Risk Level:: Medical - moderate - high VTE Device Contraindication: Treatment Not Indicated VTE Drug Contraindication: N/A - Med Ordered
[2021-04-02 16:00] LABS: Glucose, Whole Blood 222 mg/dL (60-115)
[2021-04-02 20:02] LABS: Glucose, Whole Blood 166 mg/dL (60-115)
[2021-04-02] MEDS: TiZANidine HCL 4 MG TABLET PO (21:45)
[2021-04-02] MEDS: Insulin Glargine,Hum.rec.anlog 100 UNIT/ML 10 ML VIAL 60 UNIT SUBCUT (21:45)
[2021-04-02] MEDS: Omeprazole 20 MG CAPSULE.DR PO (21:46)
[2021-04-02] MEDS: Atorvastatin Calcium 10 MG TABLET PO (21:46)
[2021-04-03] MEDS: Heparin Sodium,Porcine 5,000 UNIT/ML VIAL 5000 UNIT SUBCUT ×2 (02:07→14:01)
[2021-04-03] MEDS: Melatonin 3 MG TABLET 6 MG PO ×2 (02:10→23:53)
[2021-04-03 03:16] VITALS: BP 143/67; PULSE 71; RESP 19; TEMP 36.3; O2SAT 95
[2021-04-03 07:14] LABS: Glucose, Whole Blood 74 mg/dL (60-115)
[2021-04-03 07:37] LABS: B Type Natriuretic Peptide 215 pg/mL (<100)
[2021-04-03 07:56] VITALS: BP 154/70; PULSE 72; RESP 18; TEMP 36.9; O2SAT 91
[2021-04-03 08:24] LABS: Anion Gap 13 (12-20); Blood Urea Nitrogen 54 mg/dL (9-16); Calcium 8.4 mg/dL (8.4-10.2); Carbon Dioxide 35 mmol/L (22-29); Chloride 101 mmol/L (96-108); Creatinine Clr Calc Pharmacy 64.7; Estimated Glomerular Filt Rate 43; Glucose Random 78 mg/dL (60-115); Potassium 4.4 mmol/L (3.3-5.1); Sodium 145 mmol/L (135-145)
[2021-04-03 08:25] LABS: Estimated Average Glucose 200 mg/dL; Hemoglobin A1c % 8.6 %
[2021-04-03] MEDS: Bumetanide 1 MG/4 ML VIAL 2 MG IVPUSH ×2 (08:53→20:11)
[2021-04-03] MEDS: Cholecalciferol (Vitamin D3) 25 MCG TABLET 50 MCG PO (08:53)
[2021-04-03] MEDS: amLODIPine Besylate 5 MG TABLET PO (08:54)
[2021-04-03] MEDS: Pregabalin 100 MG CAPSULE PO ×2 (08:54→20:10)
[2021-04-03] MEDS: Gabapentin 400 MG CAPSULE PO ×3 (08:54→20:10)
[2021-04-03] MEDS: Metoprolol Succinate ER 50 MG TAB.ER.24H PO (08:54)
[2021-04-03] MEDS: Aspirin Enteric Coated 81 MG TABLET.DR PO (08:54)
[2021-04-03] MEDS: Isosorbide Mononitrate 30 MG TAB.ER.24H PO (08:54)
[2021-04-03] MEDS: 0.9 % Sodium Chloride Flush 3 ML SYRINGE IVFLUSH ×3 (08:54→23:56)
[2021-04-03] MEDS: FLUoxetine HCl 20 MG CAPSULE 40 MG PO (08:54)
[2021-04-03 11:10] LABS: Glucose, Whole Blood 139 mg/dL (60-115)
--- NOTE | 2021-04-03 12:08 | PM.PNCARD ---
Subjective Subjective Date of Service: 04/03/21 Principal diagnosis: CHF, nonischemic CMP Interval history: Cardiology follow up for the above. Seen at 1110. Today she report still having sob when walking to the bathroom. She slept with HOB around 20 degrees. Denies having PND. Leg edema improving. She reports her abdomen does not feel as distended. Denies chest pains, palpitations, dizziness. Wearing O2 with cannula. Review of Systems Review of Systems as above Yes all other systems are reviewed and are negative Physical Exam Vital Signs: Last Vital Signs Temp 98.4 F 04/03/21 07:56 Pulse 72 04/03/21 07:56 Resp 18 04/03/21 07:56 BP 154/70 H 04/03/21 07:56 Pulse Ox 91 L 04/03/21 07:56 Oxygen Flow Rate 2 03/31/21 20:35 Body Mass Index 55.7 Const Other: morbidly obese, laying in bed General: cooperative, no acute distress, alert and awake Orientation/consciousness: patient oriented x3 Neck Neck: Yes normal visual inspection and Yes JVD Resp Effort & Inspection: normal respiratory effort, able to speak in complete sentences and not labored Auscultation: clear to auscultation bilaterally (diminished), no rales, no rhonchi and no wheezes Cardio Jugular venous distension: JVD present Palpation: normal PMI Rate: regular rate Rhythm: regular rhythm Heart sounds: S1 normal heart sound present and S2 normal heart sound present Peripheral pulses: Peripheral pulses 2+ throughout GI Other: obese, rounded, nontender Neuro General: patient oriented x3 Extrem General: Yes normal to inspection and No edema Results Labs and Meds Result diagrams: 04/02/21 06:19 04/03/21 Unknown Lab results: Laboratory Results - last 24 hr 04/02/21 04/02/21 04/02/21 13:00 15:54 19:55 Sodium 142 Potassium 4.8 Chloride 102 Carbon Dioxide 33 H Anion Gap 12 BUN 56 H Creatinine 1.38 Estim Creat Clear Calc 59.1 Estimated GFR 39 POC Glucose 222 H 166 H Random Glucose 269 H Estimat Average Glucose Hemoglobin A1c % Calcium 8.5 B-Natriuretic Peptide 04/03/21 04/03/21 04/03/21 06:25 06:25 07:05 Sodium Potassium Chloride Carbon Dioxide Anion Gap BUN Creatinine Estim Creat Clear Calc Estimated GFR POC Glucose 74 Random Glucose Estimat Average Glucose 200 Hemoglobin A1c % 8.6 Calcium B-Natriuretic Peptide 215 H 04/03/21 04/03/21 11:01 Unknown Sodium 145 Potassium 4.4 Chloride 101 Carbon Dioxide 35 H Anion Gap 13 BUN 54 H Creatinine 1.26 Estim Creat Clear Calc 64.7 Estimated GFR 43 POC Glucose 139 H Random Glucose 78 Estimat Average Glucose Hemoglobin A1c % Calcium 8.4 B-Natriuretic Peptide Progress Note: A&P Assessment and plan (1) Acute on chronic combined systolic and diastolic CHF (congestive heart failure): Status: Acute Assessment and Plan: Admit with increased sob, edema, NYHA class III. CXR with findings consistent with CHF. BNP elevated at 457. Being treated for CHF.? Admit in November and December 2020 also for CHF. Did not come for OV after these admits.? Hx of nonischemic CMP with prior known EF 50-55%. Echo November 2020 with EF 40-45%, grade I diastolic dysfunction, wall motion abnormality with regionality inferior/ inferiorlateral wall.? Cardiac cath in 2017 was normal.? This admit, Being diuresed with IV Bumex with some improvement in breathing.? On exam today she does have JVD and dim lungs. RA sat 91%. Cr 1.57 yest am and down to 1.26 today. BNP today 215. Unclear accuracy of I+Os ( pt gets up to BR). Still seems fluid overloaded. Continue IV Bumex. Ongoing strict I+O monitoring. Close monitoring of electrolyte and kidney function.? O2 use as needed for sat >90%.? Recent sleep study shows mild DANIEL and recommendation for CPAP/ Bipap which will be pursued further as outpt.? This may be contributing to her heart failure exacerbations and reduced EF.? She also admits to drinking large volumes of water at home which is adding to her HF.? Continue 1500cc fluid restriction. She is a good candidate for [employer] monitoring system to help with prevention of recurrent HF admission and assist with outpt HF managment. Reviewed this with her yesterday and she reports difficulty getting to outpt appointments due to limited transportation, does not drive. Will try to arrange hospital transportations services for her outpt follow up.? We will continue to follow.? (2) NICM (nonischemic cardiomyopathy): Status: Acute (3) Morbid obesity: Status: Acute Fall Risk Details Current Medications: Current Medications Generic Name Dose Route Start Last Admin Trade Name Trungq PRN Reason Stop Dose Admin Albuterol/Ipratropium 3 ml 04/01/21 06:07 Albuterol/Iprat 2.5/0.5mg 3 Ml Ampul.Neb INHALE RQ4H WHILE AWAKE PRN Shortness Of Breath/Wheezing Amlodipine Besylate 5 mg 04/01/21 09:00 04/03/21 08:54 Amlodipine Besylate 5 Mg Tablet PO 5 mg DAILY HI Administration Protocol Aspirin 81 mg 04/01/21 09:00 04/03/21 08:54 Aspirin Enteric Coated 81 Mg Tablet.Dr PO 81 mg DAILY HI Administration Atorvastatin Calcium 10 mg 04/01/21 21:00 04/02/21 21:46 Atorvastatin Calcium 10 Mg Tablet PO 10 mg BEDTIME HI Administration Bumetanide 2 mg 04/01/21 09:00 04/03/21 08:53 Bumetanide 1 Mg/4 Ml Vial IVPUSH 2 mg BID HI Administration Protocol Dextrose 25 gm 04/01/21 01:12 Dextrose 50 % 25 Gm/50 Ml Vial IVPUSH Q15M PRN per Hypoglycemia Standing Ord. Protocol Docusate Sodium 100 mg 04/01/21 01:12 04/01/21 21:34 Docusate Sodium 100 Mg Capsule PO 100 mg DAILY PRN Administration Constipation Fluoxetine HCl 40 mg 04/01/21 09:00 04/03/21 08:54 Fluoxetine Hcl 20 Mg Capsule PO 40 mg DAILY HI Administration Gabapentin 400 mg 04/01/21 09:00 04/03/21 08:54 Gabapentin 400 Mg Capsule PO 400 mg TID HI Administration Glucose 15 gm 04/01/21 01:12 Glucose Gel 15 Gm Gel..Gram. PO Q15M PRN per Hypoglycemia Standing Ord. Protocol Heparin Sodium (Porcine) 5,000 unit 04/01/21 02:00 04/03/21 02:07 Heparin Sodium,Porcine 5,000 Unit/Ml Vial SUBCUT 5,000 unit Q12H HI Administration Insulin Glargine 50 unit 04/03/21 21:00 Insulin Glargine,Hum.Rec.Anlog 100 Unit/Ml 10 Ml Vial SUBCUT BEDTIME HI Insulin Human Lispro 0 unit 04/01/21 07:30 04/03/21 11:40 Insulin Lispro 100 Unit/Ml 3 Ml Vial SUBCUT Not Given [facility] Protocol Isosorbide Mononitrate 30 mg 04/01/21 09:00 04/03/21 08:54 Isosorbide Mononitrate 30 Mg Tab.Er.24h PO 30 mg DAILY HI Administration Protocol Melatonin 6 mg 04/01/21 20:38 04/03/21 02:10 Melatonin 3 Mg Tablet PO 6 mg BEDTIME PRN Administration Insomnia Metoprolol Succinate 50 mg 04/01/21 09:00 04/03/21 08:54 Metoprolol Succinate Er 50 Mg Tab.Er.24h PO 50 mg DAILY HI Administration Protocol Omeprazole 20 mg 04/01/21 21:00 04/02/21 21:46 Omeprazole 20 Mg Capsule.Dr PO 20 mg BEDTIME HI Administration Ondansetron HCl 4 mg 04/01/21 01:12 Ondansetron Hcl 4 Mg/2 Ml Vial IVPUSH Q8H PRN Nausea and Vomiting Pregabalin 100 mg 04/01/21 09:00 04/03/21 08:54 Pregabalin 100 Mg Capsule PO 100 mg BID HI Administration Sodium Chloride 3 ml 04/01/21 01:12 04/03/21 08:54 0.9 % Sodium Chloride Flush 3 Ml Syringe IVFLUSH 3 ml QSHIFT HI Administration Tizanidine HCl 4 mg 04/01/21 21:00 04/02/21 21:45 Tizanidine Hcl 4 Mg Tablet PO 4 mg BEDTIME HI Administration Vitamin D 50 mcg 04/01/21 09:00 04/03/21 08:53 Cholecalciferol (Vitamin D3) 25 Mcg Tablet PO 50 mcg DAILY HI Administration Time Spent With Patient Time: Total time spent is greater than 50% in coordination of care (as documented) at patient's floor/unit and/or counseling patient: Time with patient: 15 - 24 minutes Progress Note: Quality Stroke Does the patient have a stroke diagnosis?: No Procedures Date of Service Date of Service: 04/03/21
--- NOTE | 2021-04-03 12:11 | HO.PM.IMPN ---
Subjective Subjective Date of Service: 04/03/21 Interval History: the patient was seen and evaluated this morning Feel some improvement and increased swelling in lower extremities still requiring oxygen and feeling shortness of breath with ambulation Denies any fever, chills or chest pain No reported other overnight events. Systemic review: No fever, chills complaining of general weakness and dyspnea on exertion No chest pain, palpitation Shortness of breath and difficulty breathing No abdominal pain, nausea or vomiting No urinary symptoms No any rash or wounds Physical Exam Vital Signs: Vital Signs: Last Vital Signs Temp 98.4 F 04/03/21 07:56 Pulse 72 04/03/21 07:56 Resp 18 04/03/21 07:56 BP 154/70 H 04/03/21 07:56 Pulse Ox 91 L 04/03/21 07:56 Oxygen Flow Rate 2 03/31/21 20:35 Body Mass Index 55.7 Const: Other: Constitutional : Alert, oriented, looks week but little better than yesterday Neck : Normal inspection, Supple Cardiovascular : RRR, S1 S2, +1 lower extremity edema Respiratory : Fair bilateral air entry, basal fine crackles, wheezes or rhonchi , on oxygen supplement Gastrointestinal: soft, lax, Normal bowel sounds, Non tender Skin : Warm, Dry Neurological : Alert & oriented x3, No focal deficit Objective Data Active Medications Albuterol/Ipratropium (Albuterol/Iprat 2.5/0.5mg 3 Ml Ampul.Neb) 3 ml INHALE RQ4H WHILE AWAKE PRN PRN Reason: Shortness Of Breath/Wheezing Amlodipine Besylate (Amlodipine Besylate 5 Mg Tablet) 5 mg PO DAILY [facility]; Protocol Last Admin: 04/03/21 08:54 Dose: 5 mg Documented by: TRAVON Aspirin (Aspirin Enteric Coated 81 Mg Tablet.) 81 mg PO DAILY [facility] Last Admin: 04/03/21 08:54 Dose: 81 mg Documented by: TRAVON Atorvastatin Calcium (Atorvastatin Calcium 10 Mg Tablet) 10 mg PO BEDTIME HI Last Admin: 04/02/21 21:46 Dose: 10 mg Documented by: SADIE Bumetanide (Bumetanide 1 Mg/4 Ml Vial) 2 mg IVPUSH BID [facility]; Protocol Last Admin: 04/03/21 08:53 Dose: 2 mg Documented by: TRAVON Dextrose (Dextrose 50 % 25 Gm/50 Ml Vial) 25 gm IVPUSH Q15M PRN; Protocol PRN Reason: per Hypoglycemia Standing Ord. Docusate Sodium (Docusate Sodium 100 Mg Capsule) 100 mg PO DAILY PRN PRN Reason: Constipation Last Admin: 04/01/21 21:34 Dose: 100 mg Documented by: TORI Fluoxetine HCl (Fluoxetine Hcl 20 Mg Capsule) 40 mg PO DAILY [facility] Last Admin: 04/03/21 08:54 Dose: 40 mg Documented by: TRAVON Gabapentin (Gabapentin 400 Mg Capsule) 400 mg PO TID [facility] Last Admin: 04/03/21 08:54 Dose: 400 mg Documented by: TRAVON Glucose (Glucose Gel 15 Gm Gel..Gram.) 15 gm PO Q15M PRN; Protocol PRN Reason: per Hypoglycemia Standing Ord. Heparin Sodium (Porcine) (Heparin Sodium,Porcine 5,000 Unit/Ml Vial) 5,000 unit SUBCUT Q12H [facility] Last Admin: 04/03/21 02:07 Dose: 5,000 unit Documented by: SADIE Insulin Glargine (Insulin Glargine,Hum.Rec.Anlog 100 Unit/Ml 10 Ml Vial) 50 unit SUBCUT BEDTIME [facility] Insulin Human Lispro (Insulin Lispro 100 Unit/Ml 3 Ml Vial) 0 unit SUBCUT QIDACHS [facility]; Protocol Last Admin: 04/03/21 11:40 Dose: Not Given Documented by: TRAVON Non-Admin Reason: No Insulin Coverage Isosorbide Mononitrate (Isosorbide Mononitrate 30 Mg Tab.Er.24h) 30 mg PO DAILY [facility]; Protocol Last Admin: 04/03/21 08:54 Dose: 30 mg Documented by: TRAVON Melatonin (Melatonin 3 Mg Tablet) 6 mg PO BEDTIME PRN PRN Reason: Insomnia Last Admin: 04/03/21 02:10 Dose: 6 mg Documented by: SADIE Metoprolol Succinate (Metoprolol Succinate Er 50 Mg Tab.Er.24h) 50 mg PO DAILY [facility]; Protocol Last Admin: 04/03/21 08:54 Dose: 50 mg Documented by: TRAVON Omeprazole (Omeprazole 20 Mg Capsule.) 20 mg PO BEDTIME [facility] Last Admin: 04/02/21 21:46 Dose: 20 mg Documented by: SADIE Ondansetron HCl (Ondansetron Hcl 4 Mg/2 Ml Vial) 4 mg IVPUSH Q8H PRN PRN Reason: Nausea and Vomiting Pregabalin (Pregabalin 100 Mg Capsule) 100 mg PO BID [facility] Last Admin: 04/03/21 08:54 Dose: 100 mg Documented by: TRAVON Sodium Chloride (0.9 % Sodium Chloride Flush 3 Ml Syringe) 3 ml IVFLUSH QSHIFT [facility] Last Admin: 04/03/21 08:54 Dose: 3 ml Documented by: TRAVON Tizanidine HCl (Tizanidine Hcl 4 Mg Tablet) 4 mg PO BEDTIME [facility] Last Admin: 04/02/21 21:45 Dose: 4 mg Documented by: SADIE Vitamin D (Cholecalciferol (Vitamin D3) 25 Mcg Tablet) 50 mcg PO DAILY [facility] Last Admin: 04/03/21 08:53 Dose: 50 mcg Documented by: TRAVON Labs CBC & Chem 7: 04/02/21 06:19 04/03/21 Unknown Labs: Laboratory Results - last 24 hr 04/02/21 04/02/21 04/02/21 13:00 15:54 19:55 Anion Gap 12 Estim Creat Clear Calc 59.1 Estimated GFR 39 POC Glucose 222 H 166 H Random Glucose 269 H Estimat Average Glucose Hemoglobin A1c % Calcium 8.5 B-Natriuretic Peptide 04/03/21 04/03/21 04/03/21 06:25 06:25 07:05 Anion Gap Estim Creat Clear Calc Estimated GFR POC Glucose 74 Random Glucose Estimat Average Glucose 200 Hemoglobin A1c % 8.6 Calcium B-Natriuretic Peptide 215 H 04/03/21 04/03/21 11:01 Unknown Anion Gap 13 Estim Creat Clear Calc 64.7 Estimated GFR 43 POC Glucose 139 H Random Glucose 78 Estimat Average Glucose Hemoglobin A1c % Calcium 8.4 B-Natriuretic Peptide Microbiology Microbiology Results: Microbiology 03/31/21 21:26 Blood Culture - Preliminary Blood - Venous No growth after 48 hours. 03/31/21 21:26 Blood Culture - Preliminary Blood - Venous No growth after 48 hours. Assessment and Plan (1) Morbid obesity: Status: Acute (2) Acute on chronic combined systolic and diastolic CHF (congestive heart failure): Status: Acute (3) Hyperglycemia due to diabetes mellitus: Status: Acute Assessment and Plan: 60-year-old female with past medical history of CHF presents hospital with dyspnea orthopnea, lower extremity edema # acute diastolic CHF exacerbation Recent echocardiogram from November of this year that showed an ejection fraction of 40-45% Images showing fluid overload Recent sleep study shows mild DANIEL and recommendation for CPAP, to be followed outpatient Continue Bumex 2 mg IV b.i.d. Cardiology input appreciated, continue diuresis Water restriction strict I&O, daily weight, low-sodium diet # hyperkalemia Resolved Received lokelsc Repeat BMP this afternoon # hyperglycemia secondary to diabetes Improved, mildly hypoglycemia this morning Continue SSI Bedtime home 60 units Lantus Monitor blood sugar and adjust doses as needed # COPD does not appear to be in exacerbation DuoNeb p.r.n. # HTN stable continue home medications DVT prophylaxis Heparin subQ Quality Stroke Does the patient have a stroke diagnosis?: No VTE Prior VTE?: No VTE Risk Level:: Medical - moderate - high VTE Device Contraindication: Treatment Not Indicated VTE Drug Contraindication: N/A - Med Ordered
--- NOTE | 2021-04-03 14:52 | MHC.CM.PN ---
Female 60 DX HF exacerbation. No discharge today per MD rounds. Patient is in the weaning process. DP is [facility] Home with [facility]. CM will continue to follow.
[2021-04-03 15:44] VITALS: BP 138/60; PULSE 79; RESP 16; TEMP 36.6; O2SAT 93
[2021-04-03 16:15] LABS: Glucose, Whole Blood 213 mg/dL (60-115)
[2021-04-03] MEDS: Insulin Lispro 100 UNIT/ML 3 ML VIAL SUBCUT ×2 (16:44→20:30)
[2021-04-03 19:50] VITALS: BP 153/65; PULSE 74; RESP 16; TEMP 36.6; O2SAT 94
[2021-04-03] MEDS: Omeprazole 20 MG CAPSULE.DR PO (20:10)
[2021-04-03] MEDS: TiZANidine HCL 4 MG TABLET PO (20:10)
[2021-04-03] MEDS: Atorvastatin Calcium 10 MG TABLET PO (20:11)
[2021-04-03 20:25] LABS: Glucose, Whole Blood 227 mg/dL (60-115)
[2021-04-03] MEDS: Insulin Glargine,Hum.rec.anlog 100 UNIT/ML 10 ML VIAL 50 UNIT SUBCUT (20:31)
[2021-04-03 23:35] VITALS: BP 150/69; PULSE 79; RESP 18; TEMP 36.5; O2SAT 94
[2021-04-04] VITALS (7 sets, daily range): BP systolic 112–144; BP diastolic 58–73; PULSE 72–80; RESP 18–19; TEMP 35.8–36.6; O2SAT 90–96; BMI 53.0
[2021-04-04] MEDS: Heparin Sodium,Porcine 5,000 UNIT/ML VIAL 5000 UNIT SUBCUT ×2 (01:24→14:51)
[2021-04-04 07:03] LABS: Anion Gap 16 (12-20); Blood Urea Nitrogen 53 mg/dL (9-16); Calcium 8.3 mg/dL (8.4-10.2); Carbon Dioxide 33 mmol/L (22-29); Chloride 96 mmol/L (96-108); Creatinine Clr Calc Pharmacy 57.4; Estimated Glomerular Filt Rate 38; Glucose Random 249 mg/dL (60-115); Potassium 4.8 mmol/L (3.3-5.1); Sodium 140 mmol/L (135-145)
[2021-04-04 07:05] LABS: B Type Natriuretic Peptide 147 pg/mL (<100)
[2021-04-04 07:20] LABS: Glucose, Whole Blood 217 mg/dL (60-115)
[2021-04-04] MEDS: Insulin Lispro 100 UNIT/ML 3 ML VIAL SUBCUT ×4 (08:00→21:31)
[2021-04-04] MEDS: Isosorbide Mononitrate 30 MG TAB.ER.24H PO (08:01)
[2021-04-04] MEDS: amLODIPine Besylate 5 MG TABLET PO (08:01)
[2021-04-04] MEDS: Pregabalin 100 MG CAPSULE PO ×2 (08:01→21:30)
[2021-04-04] MEDS: Cholecalciferol (Vitamin D3) 25 MCG TABLET 50 MCG PO (08:01)
[2021-04-04] MEDS: Aspirin Enteric Coated 81 MG TABLET.DR PO (08:01)
[2021-04-04] MEDS: 0.9 % Sodium Chloride Flush 3 ML SYRINGE IVFLUSH ×3 (08:01→21:31)
[2021-04-04] MEDS: Bumetanide 1 MG/4 ML VIAL 2 MG IVPUSH (08:01)
[2021-04-04] MEDS: Gabapentin 400 MG CAPSULE PO ×3 (08:02→21:29)
[2021-04-04] MEDS: FLUoxetine HCl 20 MG CAPSULE 40 MG PO (08:02)
[2021-04-04] MEDS: Metoprolol Succinate ER 50 MG TAB.ER.24H PO (08:02)
--- NOTE | 2021-04-04 10:56 | PM.PNCARD ---
Subjective Subjective Date of Service: 04/04/21 <LYNNE Gaytan - Last Filed: 04/04/21 11:44> 04/04/21 <Orlando Hebert MD - Last Filed: 04/04/21 20:50> Principal diagnosis: CHF, nonischemic CMP <LYNNE Gaytan - Last Filed: 04/04/21 11:44> Interval history: Cardiology follow up for the above. Seen at 1000. Today she is observed sitting on edge of bed. Reports breathing better than admit but still sob with walking to BR. Reports orthopnea. Lower leg edema improved. No chest pains, palpitations, dizziness. States she is following fluid restriction. <LYNNE Gaytan - Last Filed: 04/04/21 11:44> Review of Systems Review of Systems as above <LYNNE Gaytan - Last Filed: 04/04/21 11:44> Yes all other systems are reviewed and are negative <LYNNE Gaytan - Last Filed: 04/04/21 11:44> Physical Exam Vital Signs: Last Vital Signs Temp 97.5 F 04/04/21 10:52 Pulse 72 04/04/21 10:52 Resp 18 04/04/21 10:52 BP 125/64 04/04/21 10:52 Pulse Ox 96 04/04/21 10:52 Oxygen Flow Rate 2 03/31/21 20:35 Body Mass Index 55.7 <LYNNE Gaytan - Last Filed: 04/04/21 11:44> Const General: cooperative, no acute distress, alert and awake <LYNNE Gaytan - Last Filed: 04/04/21 11:44> Orientation/consciousness: patient oriented x3 <LYNNE Gaytan - Last Filed: 04/04/21 11:44> Neck Neck: Yes normal visual inspection and Yes JVD (mild elevation, improved from prior) <LYNNE Gaytan - Last Filed: 04/04/21 11:44> Resp Effort & Inspection: normal respiratory effort, able to speak in complete sentences and not labored <LYNNE Gaytan - Last Filed: 04/04/21 11:44> Auscultation: clear to auscultation bilaterally, no crackles, no rales, no rhonchi and no wheezes <GRAHAM Gaytan - Last Filed: 04/04/21 11:44> Cardio Jugular venous distension: JVD present <GRAHAM GaytanC - Last Filed: 04/04/21 11:44> Palpation: normal PMI <GRAHAM GaytanC - Last Filed: 04/04/21 11:44> Rate: regular rate <Sandra M GRAHAM LeyvaC - Last Filed: 04/04/21 11:44> Rhythm: regular rhythm <Sandra M GRAHAM Leyva - Last Filed: 04/04/21 11:44> Heart sounds: S1 normal heart sound present and S2 normal heart sound present <GRAHAM GaytanC - Last Filed: 04/04/21 11:44> Peripheral pulses: Peripheral pulses 2+ throughout <GRAHAM Gaytan - Last Filed: 04/04/21 11:44> GI Inspection: Yes normal to inspection <Sandra Leyva NP-C - Last Filed: 04/04/21 11:44> Neuro General: patient oriented x3 <GRAHAM Gaytan - Last Filed: 04/04/21 11:44> Extrem Other: No pitting edema of lower legs <GRAHAM GaytanC - Last Filed: 04/04/21 11:44> General: Yes normal to inspection <GRAHAM Gaytan - Last Filed: 04/04/21 11:44> Results Labs and Meds Result diagrams: : 04/02/21 06:19 04/04/21 06:02 <Sandra Leyva NPC - Last Filed: 04/04/21 11:44> Lab results: Laboratory Results - last 24 hr 04/03/21 04/03/21 04/03/21 11:01 16:06 20:17 Sodium Potassium Chloride Carbon Dioxide Anion Gap BUN Creatinine Estim Creat Clear Calc Estimated GFR POC Glucose 139 H 213 H 227 H Random Glucose Calcium B-Natriuretic Peptide 04/04/21 04/04/21 04/04/21 06:02 06:02 07:05 Sodium 140 Potassium 4.8 Chloride 96 Carbon Dioxide 33 H Anion Gap 16 BUN 53 H Creatinine 1.42 H Estim Creat Clear Calc 57.4 Estimated GFR 38 POC Glucose 217 H Random Glucose 249 H Calcium 8.3 L B-Natriuretic Peptide 147 H <LYNNE Gaytan - Last Filed: 04/04/21 11:44> Progress Note: A&P Assessment and plan (1) Acute on chronic combined systolic and diastolic CHF (congestive heart failure): Status: Acute <LYNNE Gaytan - Last Filed: 04/04/21 11:44> Assessment and Plan: Admit with increased sob, edema, NYHA class III. CXR with findings consistent with CHF. BNP elevated at 457. Being treated for CHF.? Admit in November and December 2020 also for CHF. Did not come for OV after these admits.? Hx of nonischemic CMP with prior known EF 50-55%. Echo November 2020 with EF 40-45%, grade I diastolic dysfunction, wall motion abnormality with regionality inferior/ inferiorlateral wall.? Cardiac cath in 2018 was normal. This admit, Has been diuresed with IV Bumex with improvement in breathing however still reports having sob with walking and orthopnea.?On exam today she does have mildly elevated JVD. On O2 3 liters with sat 91%. Cr 1.26 yest am and up to 1.42 today. BNP down to 147. Unclear accuracy of I+Os as no outputs recording on 04/02. ( pt gets up to BR).?Did void 2 liters in last 24 hr. Still has signs of fluid overload. Discussed case with Dr Hebert. Will check weight today. Will stop IV Bumex and change to Torsemide 20mg po BID. Ongoing strict I+O montioring. Ambulate as tolerated. O2 supplement as needed for sat > 90%. Close monitoring of electrolyte and kidney function.?We will continue to follow.? <LYNNE Gaytan - Last Filed: 04/04/21 11:44> (2) NICM (nonischemic cardiomyopathy): Status: Acute <LYNNE Gaytan - Last Filed: 04/04/21 11:44> (3) Morbid obesity: Status: Acute <Sandra Oden Gordon, [employer]-C - Last Filed: 04/04/21 11:44> Fall Risk Details Current Medications: Current Medications Generic Name Dose Route Start Last Admin Trade Name Frelen PRN Reason Stop Dose Admin Albuterol/Ipratropium 3 ml 04/01/21 06:07 Albuterol/Iprat 2.5/0.5mg 3 Ml Ampul.Neb INHALE RQ4H WHILE AWAKE PRN Shortness Of Breath/Wheezing Amlodipine Besylate 5 mg 04/01/21 09:00 04/04/21 08:01 Amlodipine Besylate 5 Mg Tablet PO 5 mg DAILY HI Administration Protocol Aspirin 81 mg 04/01/21 09:00 04/04/21 08:01 Aspirin Enteric Coated 81 Mg Tablet. PO 81 mg DAILY HI Administration Atorvastatin Calcium 10 mg 04/01/21 21:00 04/03/21 20:11 Atorvastatin Calcium 10 Mg Tablet PO 10 mg BEDTIME HI Administration Bumetanide 2 mg 04/01/21 09:00 04/04/21 08:01 Bumetanide 1 Mg/4 Ml Vial IVPUSH 2 mg BID HI Administration Protocol Dextrose 25 gm 04/01/21 01:12 Dextrose 50 % 25 Gm/50 Ml Vial IVPUSH Q15M PRN per Hypoglycemia Standing Ord. Protocol Docusate Sodium 100 mg 04/01/21 01:12 04/01/21 21:34 Docusate Sodium 100 Mg Capsule PO 100 mg DAILY PRN Administration Constipation Fluoxetine HCl 40 mg 04/01/21 09:00 04/04/21 08:02 Fluoxetine Hcl 20 Mg Capsule PO 40 mg DAILY HI Administration Gabapentin 400 mg 04/01/21 09:00 04/04/21 08:02 Gabapentin 400 Mg Capsule PO 400 mg TID HI Administration Glucose 15 gm 04/01/21 01:12 Glucose Gel 15 Gm Gel..Gram. PO Q15M PRN per Hypoglycemia Standing Ord. Protocol Heparin Sodium (Porcine) 5,000 unit 04/01/21 02:00 04/04/21 01:24 Heparin Sodium,Porcine 5,000 Unit/Ml Vial SUBCUT 5,000 unit Q12H HI Administration Insulin Glargine 50 unit 04/03/21 21:00 04/03/21 20:31 Insulin Glargine,Hum.Rec.Anlog 100 Unit/Ml 10 Ml Vial SUBCUT 1 unit BEDTIME HI Administration Insulin Human Lispro 0 unit 04/01/21 07:30 04/04/21 08:00 Insulin Lispro 100 Unit/Ml 3 Ml Vial SUBCUT 4 unit QIDACHS HI Administration Protocol Isosorbide Mononitrate 30 mg 04/01/21 09:00 04/04/21 08:01 Isosorbide Mononitrate 30 Mg Tab.Er.24h PO 30 mg DAILY HI Administration Protocol Melatonin 6 mg 04/01/21 20:38 04/03/21 23:53 Melatonin 3 Mg Tablet PO 6 mg BEDTIME PRN Administration Insomnia Metoprolol Succinate 50 mg 04/01/21 09:00 04/04/21 08:02 Metoprolol Succinate Er 50 Mg Tab.Er.24h PO 50 mg DAILY HI Administration Protocol Omeprazole 20 mg 04/01/21 21:00 04/03/21 20:10 Omeprazole 20 Mg Capsule.Dr PO 20 mg BEDTIME HI Administration Ondansetron HCl 4 mg 04/01/21 01:12 Ondansetron Hcl 4 Mg/2 Ml Vial IVPUSH Q8H PRN Nausea and Vomiting Pregabalin 100 mg 04/01/21 09:00 04/04/21 08:01 Pregabalin 100 Mg Capsule PO 100 mg BID HI Administration Sodium Chloride 3 ml 04/01/21 01:12 04/04/21 08:01 0.9 % Sodium Chloride Flush 3 Ml Syringe IVFLUSH 3 ml QSHIFT HI Administration Tizanidine HCl 4 mg 04/01/21 21:00 04/03/21 20:10 Tizanidine Hcl 4 Mg Tablet PO 4 mg BEDTIME HI Administration Vitamin D 50 mcg 04/01/21 09:00 04/04/21 08:01 Cholecalciferol (Vitamin D3) 25 Mcg Tablet PO 50 mcg DAILY HI Administration <LYNNE Gaytan - Last Filed: 04/04/21 11:44> Time Spent With Patient Time: Total time spent is greater than 50% in coordination of care (as documented) at patient's floor/unit and/or counseling patient: <LYNNE Gaytan - Last Filed: 04/04/21 11:44> Time with patient: 15 - 24 minutes <LYNNE Gaytan - Last Filed: 04/04/21 11:44> Progress Note: Quality Stroke Does the patient have a stroke diagnosis?: No <LYNNE Gaytan - Last Filed: 04/04/21 11:44> Procedures Date of Service Date of Service: 04/04/21 <LYNNE Gaytan - Last Filed: 04/04/21 11:44>
[2021-04-04 11:26] LABS: Glucose, Whole Blood 222 mg/dL (60-115)
--- NOTE | 2021-04-04 13:03 | P.PNIM_ITS ---
Subjective Subjective Date of Service: 04/04/21 Interval History: Being followed for congestive heart failure, feeling better this morning complaining of shortness of breath with ambulation, specially without oxygen is not on home O2, also complaining of chronic orthopnea denies chest pain, no lightheadedness no dizziness no other acute issues overnight. Review of Systems General no headache, no dizziness no fever chills. CVS no chest pain, no palpitation. Respiratory no cough, shortness of breath with activity Gastrointestinal no nausea, no vomiting, no abdominal pain Review of Systems: Yes all other systems are reviewed and are negative Physical Exam Vital Signs: Vital Signs: Last Vital Signs Temp 97.5 F 04/04/21 10:52 Pulse 72 04/04/21 10:52 Resp 18 04/04/21 10:52 BP 125/64 04/04/21 10:52 Pulse Ox 96 04/04/21 10:52 Oxygen Flow Rate 2 03/31/21 20:35 Body Mass Index 53.0 General patient resting comfortably in no acute distress. Neck no JVD. CVS regular rate rhythm, Respiratory lungs clear to auscultation, no respiratory distress, no wheeze, no rhonchi. Gastrointestinal abdomen soft, nontender, bowel sounds audible, no no guarding , no rigidity. Extremities no clubbing cyanosis or edema. Neuro nonfocal Skin no rash Psych appropriate affect Objective Data Active Medications Albuterol/Ipratropium (Albuterol/Iprat 2.5/0.5mg 3 Ml Ampul.Neb) 3 ml INHALE RQ4H WHILE AWAKE PRN PRN Reason: Shortness Of Breath/Wheezing Amlodipine Besylate (Amlodipine Besylate 5 Mg Tablet) 5 mg PO DAILY [facility]; Protocol Last Admin: 04/04/21 08:01 Dose: 5 mg Documented by: COTEMA Aspirin (Aspirin Enteric Coated 81 Mg Tablet.) 81 mg PO DAILY [facility] Last Admin: 04/04/21 08:01 Dose: 81 mg Documented by: JOHANNEEMA Atorvastatin Calcium (Atorvastatin Calcium 10 Mg Tablet) 10 mg PO BEDTIME [facility] Last Admin: 04/03/21 20:11 Dose: 10 mg Documented by: FLAQUITO Dextrose (Dextrose 50 % 25 Gm/50 Ml Vial) 25 gm IVPUSH Q15M PRN; Protocol PRN Reason: per Hypoglycemia Standing Ord. Docusate Sodium (Docusate Sodium 100 Mg Capsule) 100 mg PO DAILY PRN PRN Reason: Constipation Last Admin: 04/01/21 21:34 Dose: 100 mg Documented by: TORI Fluoxetine HCl (Fluoxetine Hcl 20 Mg Capsule) 40 mg PO DAILY [facility] Last Admin: 04/04/21 08:02 Dose: 40 mg Documented by: DELORIS Gabapentin (Gabapentin 400 Mg Capsule) 400 mg PO TID [facility] Last Admin: 04/04/21 08:02 Dose: 400 mg Documented by: DELORIS Glucose (Glucose Gel 15 Gm Gel..Gram.) 15 gm PO Q15M PRN; Protocol PRN Reason: per Hypoglycemia Standing Ord. Heparin Sodium (Porcine) (Heparin Sodium,Porcine 5,000 Unit/Ml Vial) 5,000 unit SUBCUT Q12H [facility] Last Admin: 04/04/21 01:24 Dose: 5,000 unit Documented by: TORI Insulin Glargine (Insulin Glargine,Hum.Rec.Anlog 100 Unit/Ml 10 Ml Vial) 50 unit SUBCUT BEDTIME [facility] Last Admin: 04/03/21 20:31 Dose: 1 unit Documented by: FLAQUITO Insulin Human Lispro (Insulin Lispro 100 Unit/Ml 3 Ml Vial) 0 unit SUBCUT QIDACHS [facility]; Protocol Last Admin: 04/04/21 12:34 Dose: 4 unit Documented by: RAMONA Isosorbide Mononitrate (Isosorbide Mononitrate 30 Mg Tab.Er.24h) 30 mg PO DAILY [facility]; Protocol Last Admin: 04/04/21 08:01 Dose: 30 mg Documented by: DELORIS Melatonin (Melatonin 3 Mg Tablet) 6 mg PO BEDTIME PRN PRN Reason: Insomnia Last Admin: 04/03/21 23:53 Dose: 6 mg Documented by: TORI Metoprolol Succinate (Metoprolol Succinate Er 50 Mg Tab.Er.24h) 50 mg PO DAILY [facility]; Protocol Last Admin: 04/04/21 08:02 Dose: 50 mg Documented by: DELORIS Omeprazole (Omeprazole 20 Mg Capsule.Dr) 20 mg PO BEDTIME HI Last Admin: 04/03/21 20:10 Dose: 20 mg Documented by: FLAQUITO Ondansetron HCl (Ondansetron Hcl 4 Mg/2 Ml Vial) 4 mg IVPUSH Q8H PRN PRN Reason: Nausea and Vomiting Pregabalin (Pregabalin 100 Mg Capsule) 100 mg PO BID [facility] Last Admin: 04/04/21 08:01 Dose: 100 mg Documented by: DELORIS Sodium Chloride (0.9 % Sodium Chloride Flush 3 Ml Syringe) 3 ml IVFLUSH QSHIFT [facility] Last Admin: 04/04/21 08:01 Dose: 3 ml Documented by: DELORIS Tizanidine HCl (Tizanidine Hcl 4 Mg Tablet) 4 mg PO BEDTIME [facility] Last Admin: 04/03/21 20:10 Dose: 4 mg Documented by: FLAQUITO Torsemide (Torsemide 20 Mg Tablet) 20 mg PO BID@0830,1430 [facility]; Protocol Vitamin D (Cholecalciferol (Vitamin D3) 25 Mcg Tablet) 50 mcg PO DAILY [facility] Last Admin: 04/04/21 08:01 Dose: 50 mcg Documented by: DELORIS Labs CBC & Chem 7: 04/02/21 06:19 04/04/21 06:02 Labs: Laboratory Results - last 24 hr 04/03/21 04/03/21 04/04/21 16:06 20:17 06:02 Anion Gap 16 Estim Creat Clear Calc 57.4 Estimated GFR 38 POC Glucose 213 H 227 H Random Glucose 249 H Calcium 8.3 L B-Natriuretic Peptide 04/04/21 04/04/21 04/04/21 06:02 07:05 11:13 Anion Gap Estim Creat Clear Calc Estimated GFR POC Glucose 217 H 222 H Random Glucose Calcium B-Natriuretic Peptide 147 H Assessment and Plan (1) Acute on chronic combined systolic and diastolic CHF (congestive heart failure): Status: Acute (2) NICM (nonischemic cardiomyopathy): Status: Acute (3) Morbid obesity: Status: Acute Assessment and Plan: 60-year-old female with past medical history of CHF presents hospital with dyspnea orthopnea, lower extremity edema # acute diastolic CHF exacerbation Patient feels better but persistent shortness of breath with activity and orthopnea. BNP improved from 457 to 147 today, creat bumped to 1.4 patient appears euvolemic Recent echocardiogram from November of this year showed an ejection fraction of 40- 45% and grade 1 diastolic dysfunction with mal motion abnormality Chest x-ray showed fluid overload on admission Currently on IV Bumex, 3.6 L negative since admission Case discussed with Cardiology, will DC IV Bumex and placed on torsemide 20mg bid, will checkBMP Will need home O2 eval prior to discharge # Recent sleep study shows mild DANIEL and recommendation for CPAP, to be followed outpatient # hyperkalemia Resolved follow BMP # hyperglycemia secondary to diabetes Improved, blood sugars in 200s today, Continue SSI, diabetic diet, Lantus 50 units at bedtime, home dose 60 units Lantus Monitor blood sugar closely # COPD No acute exacerbation continue duoNeb p.r.n. # HTN stable, continue home medications DVT prophylaxis Heparin subQ ? Quality Stroke Does the patient have a stroke diagnosis?: No VTE Prior VTE?: No VTE Risk Level:: Medical - moderate - high VTE Device Contraindication: Treatment Not Indicated VTE Drug Contraindication: N/A - Med Ordered
[2021-04-04] MEDS: Torsemide 20 MG TABLET PO (14:50)
[2021-04-04 16:18] LABS: Glucose, Whole Blood 209 mg/dL (60-115)
[2021-04-04 20:15] LABS: Glucose, Whole Blood 304 mg/dL (60-115)
[2021-04-04] MEDS: TiZANidine HCL 4 MG TABLET PO (21:29)
[2021-04-04] MEDS: Atorvastatin Calcium 10 MG TABLET PO (21:30)
[2021-04-04] MEDS: Omeprazole 20 MG CAPSULE.DR PO (21:30)
[2021-04-04] MEDS: Insulin Glargine,Hum.rec.anlog 100 UNIT/ML 10 ML VIAL 50 UNIT SUBCUT (21:30)
[2021-04-05] VITALS (9 sets, daily range): BP systolic 118–192; BP diastolic 51–88; PULSE 71–81; RESP 16–19; TEMP 36.2–37; O2SAT 91–94
[2021-04-05] MEDS: Heparin Sodium,Porcine 5,000 UNIT/ML VIAL 5000 UNIT SUBCUT (01:23)
[2021-04-05] MEDS: Melatonin 3 MG TABLET 6 MG PO ×2 (01:59→21:01)
[2021-04-05 07:37] LABS: Glucose, Whole Blood 191 mg/dL (60-115)
[2021-04-05] MEDS: Insulin Lispro 100 UNIT/ML 3 ML VIAL SUBCUT ×4 (08:21→21:02)
[2021-04-05] MEDS: 0.9 % Sodium Chloride Flush 3 ML SYRINGE IVFLUSH ×3 (08:22→21:02)
[2021-04-05] MEDS: Torsemide 20 MG TABLET PO ×2 (08:22→14:55)
[2021-04-05] MEDS: Aspirin Enteric Coated 81 MG TABLET.DR PO (08:22)
[2021-04-05] MEDS: Metoprolol Succinate ER 50 MG TAB.ER.24H PO (08:22)
[2021-04-05] MEDS: Pregabalin 100 MG CAPSULE PO ×2 (08:22→21:01)
[2021-04-05] MEDS: Isosorbide Mononitrate 30 MG TAB.ER.24H PO (08:23)
[2021-04-05] MEDS: Cholecalciferol (Vitamin D3) 25 MCG TABLET 50 MCG PO (08:23)
[2021-04-05] MEDS: Gabapentin 400 MG CAPSULE PO ×3 (08:23→21:02)
[2021-04-05] MEDS: amLODIPine Besylate 5 MG TABLET PO (08:23)
[2021-04-05] MEDS: FLUoxetine HCl 20 MG CAPSULE 40 MG PO (08:23)
[2021-04-05 09:19] LABS: MANUAL DIFF FLAG NO
[2021-04-05 09:36] LABS: Anion Gap 14 (12-20); Blood Urea Nitrogen 47 mg/dL (9-16); Calcium 8.6 mg/dL (8.4-10.2); Carbon Dioxide 36 mmol/L (22-29); Chloride 99 mmol/L (96-108); Creatinine Clr Calc Pharmacy 55.6; Estimated Glomerular Filt Rate 38; Glucose Random 222 mg/dL (60-115); Potassium 5.1 mmol/L (3.3-5.1); Sodium 144 mmol/L (135-145)
[2021-04-05 09:45] LABS: Basophils Percent Auto 0.4 % (0-2); Eosinophils Absolute Auto 0.2 X10*3/uL (0.0-0.4); Eosinophils Percent Auto 2.8 % (0-4); Hemoglobin 11.1 g/dl (12.0-16.0); Imm Gran Abs Auto 0.04 X10*3/uL (0.00-0.03); Imm Gran Pct Auto 0.5 % (0.0-0.4); Lymphocytes Absolute Auto 1.5 X10*3/uL (1.2-4.9); Lymphocytes Percent Auto 20.3 % (20-40); Mean Corpuscular HGB Conc 29.2 g/dl (31.0-35.0); Mean Corpuscular Hemoglobin 24.3 pg (27.0-33.0); Mean Corpuscular Volume 83.2 fL (80-98); Monocytes Absolute Auto 0.7 X10*3/uL (0.1-1.2); Monocytes Percent Auto 9.8 % (2-11); Neutrophils Percent Auto 66.2 % (45-73); Platelet Count 145 X10*3/uL (160-400); Red Blood Count 4.57 X10*6/uL (4.20-5.50); Red Cell Distribution Width 17.2 % (11.0-16.0); White Blood Count 7.5 X10*3/uL (4.8-10.8)
--- NOTE | 2021-04-05 10:58 | PM.PNCARD ---
Subjective Subjective Date of Service: 04/05/21 <LYNNE Gaytan - Last Filed: 04/05/21 12:53> 04/05/21 <Orlando Hebert MD - Last Filed: 04/05/21 14:29> Principal diagnosis: CHF, nonischemic CMP <LYNNE Gaytan - Last Filed: 04/05/21 12:53> Interval history: Cardiology follow up for the above. Seen at 929. Today she reports feeling the same . Still has some sob with walking to BR. Has not been out walking in halls at all. No reports of CP, palpitations, cough. Still has some orthopnea if laying flat. Able to sleep with HOB at 20 degrees. Leg edema improved but not normal per her. Still wearing O2 with nasal cannula. <LYNNE Gaytan - Last Filed: 04/05/21 12:53> Review of Systems Review of Systems as above <LYNNE Gaytan - Last Filed: 04/05/21 12:53> Yes all other systems are reviewed and are negative <LYNNE Gaytan - Last Filed: 04/05/21 12:53> Physical Exam Vital Signs: Last Vital Signs Temp 97.1 F 04/05/21 08:00 Pulse 79 04/05/21 08:23 Resp 19 04/05/21 08:00 BP 192/88 H 04/05/21 08:23 Pulse Ox 91 L 04/05/21 08:00 Oxygen Flow Rate 2 03/31/21 20:35 Body Mass Index 53.0 <LYNNE Gaytan - Last Filed: 04/05/21 12:53> Const General: cooperative, no acute distress, alert and awake <LYNNE Gaytan - Last Filed: 04/05/21 12:53> Orientation/consciousness: patient oriented x3 <LYNNE Gaytan Last Filed: 04/05/21 12:53> Neck Neck: Yes JVD <LYNNE Gaytan - Last Filed: 04/05/21 12:53> Resp Effort & Inspection: normal respiratory effort, able to speak in complete sentences and not labored <LYNNE Gaytan - Last Filed: 04/05/21 12:53> Auscultation: clear to auscultation bilaterally (airflow seems better than on prior days), no rales, no rhonchi and no wheezes <Sandra Leyva [facility] - Last Filed: 04/05/21 12:53> Cardio Jugular venous distension: JVD present <Sandra Leyva [facility] - Last Filed: 04/05/21 12:53> Rate: regular rate <Sandra Leyva [facility] - Last Filed: 04/05/21 12:53> Rhythm: regular rhythm <Sandra Leyva [facility] - Last Filed: 04/05/21 12:53> Heart sounds: S1 normal heart sound present and S2 normal heart sound present <Sandra Leyva [facility] - Last Filed: 04/05/21 12:53> Peripheral pulses: Peripheral pulses 2+ throughout <Sandra Leyva [facility] - Last Filed: 04/05/21 12:53> GI Other: Obese, rounded <Sandra Leyva [facility] - Last Filed: 04/05/21 12:53> Inspection: Yes normal to inspection <Sandra Leyva [facility] - Last Filed: 04/05/21 12:53> Neuro General: patient oriented x3 <Sandra Leyva [facility] - Last Filed: 04/05/21 12:53> Extrem Other: No pitting lower leg edema <Sandra Leyva [facility] - Last Filed: 04/05/21 12:53> General: Yes normal to inspection <Sandra Leyva [facility] - Last Filed: 04/05/21 12:53> Results Labs and Meds Result diagrams: : 04/05/21 08:34 04/05/21 08:34 <Sandra Leyva [facility] - Last Filed: 04/05/21 12:53> Lab results: Laboratory Results - last 24 hr 04/04/21 04/04/21 04/04/21 11:13 16:11 20:02 WBC RBC Hgb Hct MCV MCH MCHC RDW Plt Count MPV Immature Gran % (Auto) Neut % (Auto) Lymph % (Auto) [place] % (Auto) Eos % (Auto) Baso % (Auto) Lymph # (Auto) [place] # (Auto) Eos # (Auto) Baso # (Auto) Abs Immat Gran (auto) Absolute Neuts (auto) Absolute Nucleated RBC Nucleated RBC % (auto) Sodium Potassium Chloride Carbon Dioxide Anion Gap BUN Creatinine Estim Creat Clear Calc Estimated GFR POC Glucose 222 H 209 H 304 H Random Glucose Calcium 04/05/21 04/05/21 04/05/21 07:24 08:34 08:34 WBC 7.5 RBC 4.57 Hgb 11.1 L Hct 38.0 MCV 83.2 MCH 24.3 L MCHC 29.2 L RDW 17.2 H Plt Count 145 L MPV 10.0 Immature Gran % (Auto) 0.5 H Neut % (Auto) 66.2 Lymph % (Auto) 20.3 [place] % (Auto) 9.8 Eos % (Auto) 2.8 Baso % (Auto) 0.4 Lymph # (Auto) 1.5 [place] # (Auto) 0.7 Eos # (Auto) 0.2 Baso # (Auto) 0.0 Abs Immat Gran (auto) 0.04 H Absolute Neuts (auto) 5.0 Absolute Nucleated RBC 0.000 Nucleated RBC % (auto) 0.0 Sodium 144 Potassium 5.1 Chloride 99 Carbon Dioxide 36 H Anion Gap 14 BUN 47 H Creatinine 1.42 H Estim Creat Clear Calc 55.6 Estimated GFR 38 POC Glucose 191 H Random Glucose 222 H Calcium 8.6 <LYNNE Gaytan - Last Filed: 04/05/21 12:53> Progress Note: A&P Assessment and plan (1) Acute on chronic combined systolic and diastolic CHF (congestive heart failure): Status: Acute <LYNNE Gaytan - Last Filed: 04/05/21 12:53> Assessment and Plan: Admit with increased sob, edema, NYHA class III. CXR with findings consistent with CHF. BNP elevated at 457. Being treated for CHF.? Admit in November and December 2020 also for CHF. Did not come for OV after these admits.? Hx of nonischemic CMP with prior known EF 50-55%. Echo November 2020 with EF 40-45%, grade I diastolic dysfunction, wall motion abnormality with regionality inferior/ inferiorlateral wall.? Cardiac cath in 2018 was normal. This admit, Had been diuresed with IV Bumex, then changed to PO Torsemide yesterday. She has improvement in breathing however still reports having sob with walking and orthopnea.?On exam today she does have mildly elevated JVD.? On O2 3 liters with sat 92%. Cr 1.42 yesterday and today. BNP down to 147 yest. Unclear accuracy of I+Os as no outputs recording on 04/02. ( pt gets up to BR).?Did void 4.5 liters in last 48 hr. has been maintained on a 1.5 liter po fluid restriction. Weight is down 15 lb this admit based on admit weight and weight yesterday. She still has some signs of fluid overload however her obesity makes physical exam more challenging.? ( Will check CXR today. Continue Torsemide 20mg po BID. Ongoing strict I+O monitoring. Increase activity, walk in barber as tolerated. O2 supplement as needed for sat > 90%, attempt to wean. May need evaluation for home O2. Does need CPAP for her DANIEL which is going to be arrange as outpt according to her. ? <LYNNE Gaytan - Last Filed: 04/05/21 12:53> (2) NICM (nonischemic cardiomyopathy): Status: Acute <LYNNE Gaytan - Last Filed: 04/05/21 12:53> (3) Morbid obesity: Status: Acute <LYNNE Gaytan - Last Filed: 04/05/21 12:53> Fall Risk Details Current Medications: Current Medications Albuterol/Ipratropium (Albuterol/Iprat 2.5/0.5mg 3 Ml Ampul.Neb) 3 ml INHALE RQ4H WHILE AWAKE PRN PRN Reason: Shortness Of Breath/Wheezing Amlodipine Besylate (Amlodipine Besylate 5 Mg Tablet) 5 mg PO DAILY [facility]; Protocol Last Admin: 04/05/21 08:23 Dose: 5 mg Documented by: Aspirin (Aspirin Enteric Coated 81 Mg Tablet.) 81 mg PO DAILY [facility] Last Admin: 04/05/21 08:22 Dose: 81 mg Documented by: Atorvastatin Calcium (Atorvastatin Calcium 10 Mg Tablet) 10 mg PO BEDTIME [facility] Last Admin: 04/04/21 21:30 Dose: 10 mg Documented by: Dextrose (Dextrose 50 % 25 Gm/50 Ml Vial) 25 gm IVPUSH Q15M PRN; Protocol PRN Reason: per Hypoglycemia Standing Ord. Docusate Sodium (Docusate Sodium 100 Mg Capsule) 100 mg PO DAILY PRN PRN Reason: Constipation Last Admin: 04/01/21 21:34 Dose: 100 mg Documented by: Fluoxetine HCl (Fluoxetine Hcl 20 Mg Capsule) 40 mg PO DAILY [facility] Last Admin: 04/05/21 08:23 Dose: 40 mg Documented by: Gabapentin (Gabapentin 400 Mg Capsule) 400 mg PO TID [facility] Last Admin: 04/05/21 08:23 Dose: 400 mg Documented by: Glucose (Glucose Gel 15 Gm Gel..Gram.) 15 gm PO Q15M PRN; Protocol PRN Reason: per Hypoglycemia Standing Ord. Heparin Sodium (Porcine) (Heparin Sodium,Porcine 5,000 Unit/Ml Vial) 5,000 unit SUBCUT Q12H [facility] Last Admin: 04/05/21 01:23 Dose: 5,000 unit Documented by: Insulin Glargine (Insulin Glargine,Hum.Rec.Anlog 100 Unit/Ml 10 Ml Vial) 50 unit SUBCUT BEDTIME [facility] Last Admin: 04/04/21 21:30 Dose: 50 unit Documented by: Insulin Human Lispro (Insulin Lispro 100 Unit/Ml 3 Ml Vial) 0 unit SUBCUT QIDACHS [facility]; Protocol Last Admin: 04/05/21 08:21 Dose: 2 unit Documented by: Isosorbide Mononitrate (Isosorbide Mononitrate 30 Mg Tab.Er.24h) 30 mg PO DAILY [facility]; Protocol Last Admin: 04/05/21 08:23 Dose: 30 mg Documented by: Melatonin (Melatonin 3 Mg Tablet) 6 mg PO BEDTIME PRN PRN Reason: Insomnia Last Admin: 04/05/21 01:59 Dose: 6 mg Documented by: Metoprolol Succinate (Metoprolol Succinate Er 50 Mg Tab.Er.24h) 50 mg PO DAILY [facility]; Protocol Last Admin: 04/05/21 08:22 Dose: 50 mg Documented by: Omeprazole (Omeprazole 20 Mg Capsule.) 20 mg PO BEDTIME [facility] Last Admin: 04/04/21 21:30 Dose: 20 mg Documented by: Ondansetron HCl (Ondansetron Hcl 4 Mg/2 Ml Vial) 4 mg IVPUSH Q8H PRN PRN Reason: Nausea and Vomiting Pregabalin (Pregabalin 100 Mg Capsule) 100 mg PO BID [facility] Last Admin: 04/05/21 08:22 Dose: 100 mg Documented by: Sodium Chloride (0.9 % Sodium Chloride Flush 3 Ml Syringe) 3 ml IVFLUSH QSHIFT [facility] Last Admin: 04/05/21 08:22 Dose: 3 ml Documented by: Tizanidine HCl (Tizanidine Hcl 4 Mg Tablet) 4 mg PO BEDTIME [facility] Last Admin: 04/04/21 21:29 Dose: 4 mg Documented by: Torsemide (Torsemide 20 Mg Tablet) 20 mg PO BID@0830,1430 [facility]; Protocol Last Admin: 04/05/21 08:22 Dose: 20 mg Documented by: Vitamin D (Cholecalciferol (Vitamin D3) 25 Mcg Tablet) 50 mcg PO DAILY [facility] Last Admin: 04/05/21 08:23 Dose: 50 mcg Documented by: <LYNNE Gaytan - Last Filed: 04/05/21 12:53> Time Spent With Patient Time: Total time spent is greater than 50% in coordination of care (as documented) at patient's floor/unit and/or counseling patient: <LYNNE Gaytan - Last Filed: 04/05/21 12:53> Time with patient: 15 - 24 minutes <LYNNE Gaytan - Last Filed: 04/05/21 12:53> Progress Note: Quality Stroke Does the patient have a stroke diagnosis?: No <LYNNE Gaytan - Last Filed: 04/05/21 12:53> Procedures Date of Service Date of Service: 04/05/21 <LYNNE Gaytan - Last Filed: 04/05/21 12:53>
[2021-04-05 11:31] LABS: Glucose, Whole Blood 242 mg/dL (60-115)
--- NOTE | 2021-04-05 12:27 | MHC.CM.PN ---
per multi dis rounds pt t have 02 home eval prior to dc cm awaiting results
--- NOTE | 2021-04-05 13:31 | PM.DS ---
DS: Providers Provider Date of Service: 04/06/21 Date of admission: 03/31/21 23:14 Primary care physician: Tavo Huber MD Consults: 04/01/21 01:12 Consult to Cardiology Routine Consulting Provider: Tim Szymanski Reason for consultation: CHF Has provider been notified: No DS: Diagnosis Discharge Diagnosis (1) Acute on chronic combined systolic and diastolic CHF (congestive heart failure): Status: Acute (2) NICM (nonischemic cardiomyopathy): Status: Acute (3) Morbid obesity: Status: Acute (4) Acute respiratory failure with hypoxia and hypercapnia: Status: Acute DS: Summary Hospital Course Hospital Course: Patient was admitted for acute hypoxic respiratory failure secondary to acute on chronic systolic and diastolic CHF. She was treated with IV Bumex and diuresed well. There were signs of reaching goal diuresis such as slightly increasing creatinine and decreased BNP from 457-147. Shortness of breath significantly improved. Patient still has some JVD and lower extremity edema but may not be able to tolerate more diuresis. Her oxygen was weaned to 91% on room air at rest, but she will require 2 L of oxygen at home as she desaturates to 85% on exertion. Overall patient is feeling better will be discharged home. She will continue torsemide 20 mg b.i.d. instead of for furosemide she was taking previously. She will follow up for sleep study for suspected DANIEL and CPAP recommendations. Time Spent with Patient Time attestation: Total time spent providing and/or coordinating discharge services: Discharge coordination time: Greater than 30 minutes Quality: Stroke Does the patient have a stroke diagnosis?: No Physical Exam Vital Signs: Vital Signs: Last Vital Signs Temp 97.3 F 04/05/21 11:40 Pulse 75 04/05/21 11:40 Resp 19 04/05/21 11:40 BP 118/51 L 04/05/21 11:40 Pulse Ox 93 04/05/21 11:40 Oxygen Flow Rate 2 03/31/21 20:35 Body Mass Index 53.0 Const General:?cooperative, no acute distress, alert and awake Orientation/consciousness:?patient oriented x3 Neck Neck:?Yes JVD Resp Effort & Inspection:?normal respiratory effort, able to speak in complete sentences and not labored Auscultation:?clear to auscultation bilaterally (airflow seems better than on prior days), no rales, no rhonchi and no wheezes Cardio Jugular venous distension:?JVD present Rate:?regular rate Rhythm:?regular rhythm Heart sounds:?S1 normal heart sound present and S2 normal heart sound present Peripheral pulses:?Peripheral pulses 2+ throughout GI Other:?Obese, rounded Inspection:?Yes normal to inspection Neuro General:?patient oriented x3 Extrem Other:?No pitting lower leg edema General:?Yes normal to inspection DS: Data Data Completed and Pending Completed studies during hospitalization [Text1]: Procedures Assistance with Respiratory Ventilation, Less than 24 Consecutive Hours, Continuous Positive Airway Pressure (12/11/20) Labs on day of discharge: Laboratory Results - last 24 hr 04/04/21 04/04/21 04/05/21 16:11 20:02 07:24 WBC RBC Hgb Hct MCV MCH MCHC RDW Plt Count MPV Immature Gran % (Auto) Neut % (Auto) Lymph % (Auto) [place] % (Auto) Eos % (Auto) Baso % (Auto) Lymph # (Auto) [place] # (Auto) Eos # (Auto) Baso # (Auto) Abs Immat Gran (auto) Absolute Neuts (auto) Absolute Nucleated RBC Nucleated RBC % (auto) Sodium Potassium Chloride Carbon Dioxide Anion Gap BUN Creatinine Estim Creat Clear Calc Estimated GFR POC Glucose 209 H 304 H 191 H Random Glucose Calcium 04/05/21 04/05/21 04/05/21 08:34 08:34 11:24 WBC 7.5 RBC 4.57 Hgb 11.1 L Hct 38.0 MCV 83.2 MCH 24.3 L MCHC 29.2 L RDW 17.2 H Plt Count 145 L MPV 10.0 Immature Gran % (Auto) 0.5 H Neut % (Auto) 66.2 Lymph % (Auto) 20.3 [place] % (Auto) 9.8 Eos % (Auto) 2.8 Baso % (Auto) 0.4 Lymph # (Auto) 1.5 [place] # (Auto) 0.7 Eos # (Auto) 0.2 Baso # (Auto) 0.0 Abs Immat Gran (auto) 0.04 H Absolute Neuts (auto) 5.0 Absolute Nucleated RBC 0.000 Nucleated RBC % (auto) 0.0 Sodium 144 Potassium 5.1 Chloride 99 Carbon Dioxide 36 H Anion Gap 14 BUN 47 H Creatinine 1.42 H Estim Creat Clear Calc 55.6 Estimated GFR 38 POC Glucose 242 H Random Glucose 222 H Calcium 8.6 Preliminary micro results at discharge 03/31/21 21:26 Blood Culture - Preliminary Blood - Venous No growth after 48 hours. 03/31/21 21:26 Blood Culture - Preliminary Blood - Venous No growth after 48 hours. Discharge Plan Discharge Patient Disposition: Home, Self-Care Discharge Diagnosis: chf Referrals: [email or web address] [Other] - 1 Week [facility] [Outside] - 1 Week Tavo Huber MD [Primary Care Provider] - 1 Week (You have a primary care follow up appointment scheduled on April 12 at 3:15 pm. Please call your doctor's office if you need to reschedule.) Discharge Medications: New torsemide 20 mg Tablet 20 mg PO BID@0830,1430 Qty: 60 RF: 0 amlodipine 5 mg Tablet 5 mg PO DAILY Qty: 30 RF: 0 Continued gabapentin 400 mg capsule 1 cap PO TID RF: 0 ipratropium-albuterol 0.5 mg-3 mg(2.5 mg base)/3 mL Solution For Nebulization 3 ml inhalation RQ4H WHILE AWAKE PRN (Reason: Shortness Of Breath/Wheezing) Qty: 1 RF: 0 Lantus U-100 Insulin 100 unit/mL Solution 60 unit subcut BEDTIME Qty: 1 RF: 0 insulin lispro [Humalog U-100 Insulin] 100 unit/mL Solution See Protocol unit subcut QIDACHS Qty: 1 RF: 0 fluoxetine 40 mg capsule 40 mg PO DAILY RF: 0 metoprolol succinate 50 mg tablet extended release 24 hr 50 mg PO DAILY RF: 0 aspirin 81 mg tablet,delayed release (DR/EC) 81 mg PO DAILY RF: 0 simvastatin 20 mg tablet 20 mg PO BEDTIME RF: 0 omeprazole 20 mg capsule,delayed release(DR/EC) 20 mg PO BEDTIME RF: 0 albuterol sulfate [ProAir HFA] 90 mcg/actuation HFA aerosol inhaler 2 puff inhalation Q4H PRN (Reason: Dyspnea) RF: 0 Flovent HFA 110 mcg/actuation HFA aerosol inhaler 2 puff inhalation BID RF: 0 tizanidine 4 mg Tablet 4 mg PO BEDTIME RF: 0 isosorbide mononitrate 30 mg Tablet Extended Release 24 Hr 30 mg PO DAILY RF: 0 cholecalciferol (vitamin D3) 50 mcg (2,000 unit) Capsule 50 mcg PO DAILY RF: 0 pregabalin [Lyrica] 100 mg Capsule 100 mg PO BID Qty: 10 RF: 0 Discontinued amlodipine 10 mg tablet 1 tab PO DAILY RF: 0 furosemide 20 mg tablet 40 mg PO DAILY RF: 0 furosemide 20 mg tablet 20 mg PO DAILY@1700 RF: 0 Discharge Orders: Discharge Order (Routine); Ordered 04/05/21 Ordered By: Vinayak Tipton Diet: advance to usual diet Activity on Discharge: As tolerated Stand Alone Forms: Patient Portal Discharge page Care Plan Goals: reocvery Health Concerns: chf Plan of Treatment: home o2, change lasix to torsemide, follow up for sleep apnea testing Assessment: see above
--- NOTE | 2021-04-05 16:40 | HO.PM.IMPN ---
Subjective Subjective Date of Service: 04/05/21 Cardiovascular Cardiovascular: Reports no additional cardiovascular complaints Gastrointestinal Gastrointestinal: Reports no additional gastrointestinal complaints Physical Exam Vital Signs: Vital Signs: Last Vital Signs Temp 97.3 F 04/05/21 11:40 Pulse 75 04/05/21 11:40 Resp 19 04/05/21 11:40 BP 118/51 L 04/05/21 11:40 Pulse Ox 93 04/05/21 11:40 Oxygen Flow Rate 2 03/31/21 20:35 Body Mass Index 53.0 Const General:?cooperative, no acute distress, alert and awake Orientation/consciousness:?patient oriented x3 Neck Neck:?Yes JVD Resp Effort & Inspection:?normal respiratory effort, able to speak in complete sentences and not labored Auscultation:?clear to auscultation bilaterally (airflow seems better than on prior days), no rales, no rhonchi and no wheezes Cardio Jugular venous distension:?JVD present Rate:?regular rate Rhythm:?regular rhythm Heart sounds:?S1 normal heart sound present and S2 normal heart sound present Peripheral pulses:?Peripheral pulses 2+ throughout GI Other:?Obese, rounded Inspection:?Yes normal to inspection Neuro General:?patient oriented x3 Extrem Other:?No pitting lower leg edema General:?Yes normal to inspection Objective Data Active Medications Albuterol/Ipratropium (Albuterol/Iprat 2.5/0.5mg 3 Ml Ampul.Neb) 3 ml INHALE RQ4H WHILE AWAKE PRN PRN Reason: Shortness Of Breath/Wheezing Amlodipine Besylate (Amlodipine Besylate 5 Mg Tablet) 5 mg PO DAILY [facility]; Protocol Last Admin: 04/05/21 08:23 Dose: 5 mg Documented by: CARROLL Aspirin (Aspirin Enteric Coated 81 Mg Tablet.) 81 mg PO DAILY [facility] Last Admin: 04/05/21 08:22 Dose: 81 mg Documented by: CARROLL Atorvastatin Calcium (Atorvastatin Calcium 10 Mg Tablet) 10 mg PO BEDTIME [facility] Last Admin: 04/04/21 21:30 Dose: 10 mg Documented by: RAJENDRA Dextrose (Dextrose 50 % 25 Gm/50 Ml Vial) 25 gm IVPUSH Q15M PRN; Protocol PRN Reason: per Hypoglycemia Standing Ord. Docusate Sodium (Docusate Sodium 100 Mg Capsule) 100 mg PO DAILY PRN PRN Reason: Constipation Last Admin: 04/01/21 21:34 Dose: 100 mg Documented by: TORI Fluoxetine HCl (Fluoxetine Hcl 20 Mg Capsule) 40 mg PO DAILY [facility] Last Admin: 04/05/21 08:23 Dose: 40 mg Documented by: CARROLL Gabapentin (Gabapentin 400 Mg Capsule) 400 mg PO TID [facility] Last Admin: 04/05/21 14:55 Dose: 400 mg Documented by: CARROLL Glucose (Glucose Gel 15 Gm Gel..Gram.) 15 gm PO Q15M PRN; Protocol PRN Reason: per Hypoglycemia Standing Ord. Heparin Sodium (Porcine) (Heparin Sodium,Porcine 5,000 Unit/Ml Vial) 5,000 unit SUBCUT Q12H [place] Last Admin: 04/05/21 14:27 Dose: Not Given Documented by: CARROLL Non-Admin Reason: Patient Refused Insulin Glargine (Insulin Glargine,Hum.Rec.Anlog 100 Unit/Ml 10 Ml Vial) 50 unit SUBCUT BEDTIME [facility] Last Admin: 04/04/21 21:30 Dose: 50 unit Documented by: RAJENDRA Insulin Human Lispro (Insulin Lispro 100 Unit/Ml 3 Ml Vial) 0 unit SUBCUT QIDACHS [facility]; Protocol Last Admin: 04/05/21 11:54 Dose: 4 unit Documented by: CARROLL Isosorbide Mononitrate (Isosorbide Mononitrate 30 Mg Tab.Er.24h) 30 mg PO DAILY [facility]; Protocol Last Admin: 04/05/21 08:23 Dose: 30 mg Documented by: CARROLL Melatonin (Melatonin 3 Mg Tablet) 6 mg PO BEDTIME PRN PRN Reason: Insomnia Last Admin: 04/05/21 01:59 Dose: 6 mg Documented by: RAJENDRA Metoprolol Succinate (Metoprolol Succinate Er 50 Mg Tab.Er.24h) 50 mg PO DAILY [facility]; Protocol Last Admin: 04/05/21 08:22 Dose: 50 mg Documented by: CARROLL Omeprazole (Omeprazole 20 Mg Capsule.Dr) 20 mg PO BEDTIME [facility] Last Admin: 04/04/21 21:30 Dose: 20 mg Documented by: RAJENDRA Ondansetron HCl (Ondansetron Hcl 4 Mg/2 Ml Vial) 4 mg IVPUSH Q8H PRN PRN Reason: Nausea and Vomiting Pregabalin (Pregabalin 100 Mg Capsule) 100 mg PO BID [facility] Last Admin: 04/05/21 08:22 Dose: 100 mg Documented by: CARROLL Sodium Chloride (0.9 % Sodium Chloride Flush 3 Ml Syringe) 3 ml IVFLUSH QSHIFT [facility] Last Admin: 04/05/21 14:55 Dose: 3 ml Documented by: CARROLL Tizanidine HCl (Tizanidine Hcl 4 Mg Tablet) 4 mg PO BEDTIME [facility] Last Admin: 04/04/21 21:29 Dose: 4 mg Documented by: RAJENDRA Torsemide (Torsemide 20 Mg Tablet) 20 mg PO BID@0830,1430 [facility]; Protocol Last Admin: 04/05/21 14:55 Dose: 20 mg Documented by: CARROLL Vitamin D (Cholecalciferol (Vitamin D3) 25 Mcg Tablet) 50 mcg PO DAILY [facility] Last Admin: 04/05/21 08:23 Dose: 50 mcg Documented by: CARROLL Labs CBC & Chem 7: 04/05/21 08:34 04/05/21 08:34 Labs: Laboratory Results - last 24 hr 04/04/21 04/05/21 04/05/21 20:02 07:24 08:34 MCV 83.2 MCH 24.3 L MCHC 29.2 L RDW 17.2 H Plt Count 145 L MPV 10.0 Immature Gran % (Auto) 0.5 H Neut % (Auto) 66.2 Lymph % (Auto) 20.3 [place] % (Auto) 9.8 Eos % (Auto) 2.8 Baso % (Auto) 0.4 Lymph # (Auto) 1.5 [place] # (Auto) 0.7 Eos # (Auto) 0.2 Baso # (Auto) 0.0 Abs Immat Gran (auto) 0.04 H Absolute Neuts (auto) 5.0 Absolute Nucleated RBC 0.000 Nucleated RBC % (auto) 0.0 Anion Gap Estim Creat Clear Calc Estimated GFR POC Glucose 304 H 191 H Random Glucose Calcium 04/05/21 04/05/21 08:34 11:24 MCV MCH MCHC RDW Plt Count MPV Immature Gran % (Auto) Neut % (Auto) Lymph % (Auto) [place] % (Auto) Eos % (Auto) Baso % (Auto) Lymph # (Auto) [place] # (Auto) Eos # (Auto) Baso # (Auto) Abs Immat Gran (auto) Absolute Neuts (auto) Absolute Nucleated RBC Nucleated RBC % (auto) Anion Gap 14 Estim Creat Clear Calc 55.6 Estimated GFR 38 POC Glucose 242 H Random Glucose 222 H Calcium 8.6 Assessment and Plan (1) Acute on chronic combined systolic and diastolic CHF (congestive heart failure): Status: Acute (2) NICM (nonischemic cardiomyopathy): Status: Acute (3) Morbid obesity: Status: Acute Assessment and Plan: 60-year-old female with past medical history of CHF presents hospital with dyspnea orthopnea, lower extremity edema acute on chronic systolic and diastolic CHF exacerbation Patient feels better and signs show she diuresed well, was planning on discharge, but feels nervous going home, has noone at home tonight BNP improved from 457 to 147 today, creat bumped to 1.4 patient appears euvolemic Recent echocardiogram from November of this year showed an ejection fraction of 40-45% and grade 1 diastolic dysfunction with mal motion abnormality Chest x-ray showed fluid overload on admission now improved changed to torsemide po qualified for home o2 Recent sleep study shows mild DANIEL and recommendation for CPAP, to be followed outpatient hyperglycemia secondary to diabetes Continue SSI, diabetic diet, Lantus 50 units at bedtime, home dose 60 units Lantus Monitor blood sugar closely COPD No acute exacerbation continue duoNeb p.r.n. HTN stable, continue home medications DVT prophylaxis Heparin subQ ? Quality Stroke Does the patient have a stroke diagnosis?: No VTE Prior VTE?: No VTE Risk Level:: Medical - moderate - high VTE Device Contraindication: Treatment Not Indicated VTE Drug Contraindication: N/A - Med Ordered
[2021-04-05 17:34] LABS: Glucose, Whole Blood 256 mg/dL (60-115)
[2021-04-05 20:24] LABS: Glucose, Whole Blood 241 mg/dL (60-115)
[2021-04-05] MEDS: Atorvastatin Calcium 10 MG TABLET PO (21:01)
[2021-04-05] MEDS: TiZANidine HCL 4 MG TABLET PO (21:01)
[2021-04-05] MEDS: Omeprazole 20 MG CAPSULE.DR PO (21:01)
[2021-04-05] MEDS: Insulin Glargine,Hum.rec.anlog 100 UNIT/ML 10 ML VIAL 50 UNIT SUBCUT (21:02)
[2021-04-06] MEDS: ondansetron HCL 4 MG/2 ML VIAL IVPUSH (03:37)
[2021-04-06 03:56] VITALS: BP 149/64; PULSE 73; RESP 18; TEMP 36.9; O2SAT 92
[2021-04-06 04:45] LABS: CDiff Gene PCR NEGATIVE (Negative)
[2021-04-06 07:22] LABS: Glucose, Whole Blood 217 mg/dL (60-115)
[2021-04-06 07:25] VITALS: BP 116/49; PULSE 78; RESP 18; TEMP 36.1; O2SAT 92
[2021-04-06] MEDS: FLUoxetine HCl 20 MG CAPSULE 40 MG PO (08:10)
[2021-04-06] MEDS: Insulin Lispro 100 UNIT/ML 3 ML VIAL SUBCUT ×2 (08:10→12:04)
[2021-04-06 08:11] VITALS: BP 118/62; PULSE 78
[2021-04-06] MEDS: Aspirin Enteric Coated 81 MG TABLET.DR PO (08:11)
[2021-04-06] MEDS: amLODIPine Besylate 5 MG TABLET PO (08:11)
[2021-04-06] MEDS: Torsemide 20 MG TABLET PO ×2 (08:11→16:22)
[2021-04-06] MEDS: 0.9 % Sodium Chloride Flush 3 ML SYRINGE IVFLUSH ×2 (08:11→16:23)
[2021-04-06] MEDS: Metoprolol Succinate ER 50 MG TAB.ER.24H PO (08:11)
[2021-04-06] MEDS: Isosorbide Mononitrate 30 MG TAB.ER.24H PO (08:11)
[2021-04-06] MEDS: Gabapentin 400 MG CAPSULE PO ×2 (08:11→16:22)
[2021-04-06] MEDS: Cholecalciferol (Vitamin D3) 25 MCG TABLET 50 MCG PO (08:11)
[2021-04-06] MEDS: Pregabalin 100 MG CAPSULE PO (08:11)
--- NOTE | 2021-04-06 10:46 | MHC.CM.PN ---
Patient has been medically cleared for dc to home today with services. Patient was active with [facility], who has been notified of today's dc (dc summary sent via [employer] and faxed to [phone], and vm message left for Daughter, regarding today's dc plan).
[2021-04-06 11:15] LABS: Glucose, Whole Blood 266 mg/dL (60-115)
[2021-04-06 11:26] VITALS: BP 141/59; PULSE 72; RESP 18; TEMP 36.1; O2SAT 93
--- NOTE | 2021-04-06 13:15 | P.PNCA_ITS ---
Subjective Subjective Date of Service: 04/06/21 Principal diagnosis: CHF, nonischemic CMP Interval history: She is saying her breathing is better. She still hypoxic and requiring oxygen. She is a former smoker and has a diagnosis of COPD. She also was smoking marijuana recently. Review of Systems Review of Systems Tired Physical Exam Vital Signs: Last Vital Signs Temp 97 F 04/06/21 11:26 Pulse 72 04/06/21 11:26 Resp 18 04/06/21 11:26 BP 141/59 H 04/06/21 11:26 Pulse Ox 93 04/06/21 11:26 Oxygen Flow Rate 2 03/31/21 20:35 Body Mass Index 53.0 GENERAL APPEARANCE:? In no acute distress. SKIN: no suspicious lesions, warm and dry. HEART: no murmurs, regular rate and rhythm. LUNGS:? Few crackles at bases ABDOMEN: soft, nontender.? Distended. EXTREMITIES:? Very mild edema. PERIPHERAL PULSES: equal. NEUROLOGIC: No gross deficits, AAO X 3 Results Labs and Meds Result diagrams: 04/05/21 08:34 04/05/21 08:34 Lab results: Laboratory Results - last 24 hr 04/05/21 04/05/21 04/06/21 17:30 20:12 03:39 POC Glucose 256 H 241 H C. difficile Tox B Gene NEGATIVE 04/06/21 04/06/21 07:07 11:03 POC Glucose 217 H 266 H C. difficile Tox B Gene Imaging Radiologist's impression: Impressions Chest X-Ray 04/05/21 13:23 IMPRESSION: Improvement in pulmonary vascular prominence. Progress Note: A&P Assessment and plan (1) Morbid obesity: Status: Acute (2) CHF exacerbation: Status: Acute Assessment and Plan: 60-year-old female with acute on chronic diastolic heart failure. She has mildly reduced ejection fraction of 40 45%. She has been diuresed and started on torsemide and doing well with that. Blood pressure control is better too. She is still hypoxic and requiring oxygen. She has background of COPD. She was also smoking marijuana which also leads to progression of COPD. Chest x-ray did not show any congestion. She may need assessment for oxygen at home. Clinically stable otherwise from our end and can be discharged home. She is being worked up for sleep apnea as outpatient. Thank you for allowing me to participate in the care of your patient. Please feel free to contact me if you have any questions. Fall Risk Details Current Medications: Current Medications Albuterol/Ipratropium (Albuterol/Iprat 2.5/0.5mg 3 Ml Ampul.Neb) 3 ml INHALE RQ4H WHILE AWAKE PRN PRN Reason: Shortness Of Breath/Wheezing Amlodipine Besylate (Amlodipine Besylate 5 Mg Tablet) 5 mg PO DAILY [facility]; Protocol Last Admin: 04/06/21 08:11 Dose: 5 mg Documented by: Aspirin (Aspirin Enteric Coated 81 Mg Tablet.) 81 mg PO DAILY [facility] Last Admin: 04/06/21 08:11 Dose: 81 mg Documented by: Atorvastatin Calcium (Atorvastatin Calcium 10 Mg Tablet) 10 mg PO BEDTIME [facility] Last Admin: 04/05/21 21:01 Dose: 10 mg Documented by: Dextrose (Dextrose 50 % 25 Gm/50 Ml Vial) 25 gm IVPUSH Q15M PRN; Protocol PRN Reason: per Hypoglycemia Standing Ord. Docusate Sodium (Docusate Sodium 100 Mg Capsule) 100 mg PO DAILY PRN PRN Reason: Constipation Last Admin: 04/01/21 21:34 Dose: 100 mg Documented by: Fluoxetine HCl (Fluoxetine Hcl 20 Mg Capsule) 40 mg PO DAILY [facility] Last Admin: 04/06/21 08:10 Dose: 40 mg Documented by: Gabapentin (Gabapentin 400 Mg Capsule) 400 mg PO TID [facility] Last Admin: 04/06/21 08:11 Dose: 400 mg Documented by: Glucose (Glucose Gel 15 Gm Gel..Gram.) 15 gm PO Q15M PRN; Protocol PRN Reason: per Hypoglycemia Standing Ord. Heparin Sodium (Porcine) (Heparin Sodium,Porcine 5,000 Unit/Ml Vial) 5,000 unit SUBCUT Q12H [facility] Last Admin: 04/06/21 02:45 Dose: Not Given Documented by: Insulin Glargine (Insulin Glargine,Hum.Rec.Anlog 100 Unit/Ml 10 Ml Vial) 50 unit SUBCUT BEDTIME [facility] Last Admin: 04/05/21 21:02 Dose: 50 unit Documented by: Insulin Human Lispro (Insulin Lispro 100 Unit/Ml 3 Ml Vial) 0 unit SUBCUT QIDACHS [facility]; Protocol Last Admin: 04/06/21 12:04 Dose: 6 unit Documented by: Isosorbide Mononitrate (Isosorbide Mononitrate 30 Mg Tab.Er.24h) 30 mg PO DAILY [facility]; Protocol Last Admin: 04/06/21 08:11 Dose: 30 mg Documented by: Loperamide HCl (Loperamide Hcl 2 Mg Capsule) 2 mg PO Q4H PRN PRN Reason: diarrhea Melatonin (Melatonin 3 Mg Tablet) 6 mg PO BEDTIME PRN PRN Reason: Insomnia Last Admin: 04/05/21 21:01 Dose: 6 mg Documented by: Metoprolol Succinate (Metoprolol Succinate Er 50 Mg Tab.Er.24h) 50 mg PO DAILY [facility]; Protocol Last Admin: 04/06/21 08:11 Dose: 50 mg Documented by: Omeprazole (Omeprazole 20 Mg Capsule.Dr) 20 mg PO BEDTIME [facility] Last Admin: 04/05/21 21:01 Dose: 20 mg Documented by: Ondansetron HCl (Ondansetron Hcl 4 Mg/2 Ml Vial) 4 mg IVPUSH Q8H PRN PRN Reason: Nausea and Vomiting Last Admin: 04/06/21 03:37 Dose: 4 mg Documented by: Pregabalin (Pregabalin 100 Mg Capsule) 100 mg PO BID [facility] Last Admin: 04/06/21 08:11 Dose: 100 mg Documented by: Sodium Chloride (0.9 % Sodium Chloride Flush 3 Ml Syringe) [facility] Last Admin: 04/06/21 08:11 Dose: 3 ml Documented by: Tizanidine HCl (Tizanidine Hcl 4 Mg Tablet) 4 mg PO BEDTIME [facility] Last Admin: 04/05/21 21:01 Dose: 4 mg Documented by: Torsemide (Torsemide 20 Mg Tablet) 20 mg PO BID@0830,1430 [facility]; Protocol Last Admin: 04/06/21 08:11 Dose: 20 mg Documented by: Vitamin D (Cholecalciferol (Vitamin D3) 25 Mcg Tablet) 50 mcg PO DAILY [facility] Last Admin: 04/06/21 08:11 Dose: 50 mcg Documented by: Time Spent With Patient Time: Total time spent is greater than 50% in coordination of care (as documented) at patient's floor/unit and/or counseling patient: Time with patient: 15 - 24 minutes Progress Note: Quality Stroke Does the patient have a stroke diagnosis?: No Procedures Date of Service Date of Service: 04/06/21
[2021-04-06 15:08] VITALS: BP 139/52; PULSE 69; RESP 20; TEMP 36.1; O2SAT 92
[2021-04-06] MEDS: Heparin Sodium,Porcine 5,000 UNIT/ML VIAL 5000 UNIT SUBCUT (16:23)
== END 2021-04-06 18:49 | disposition home or self-care (01) | DRG 194 ==
LOC: HO.ED 22:51 → HO.EDOVER 23:29 → HO.IMC 04-01 16:07
PROVIDERS: Hospitalist; Nurse Practitioner Family; Student in an Organized Health Care Education/Training Program; Admitting Provider Internal Medicine; Emergency Provider Student in an Organized Health Care Education/Training Program; PCP Internal Medicine; Visit Provider Internal Medicine
DX: I13.0 Hypertensive heart and chronic kidney disease with heart failure and stage 1 through stage 4 chronic kidney disease, or unspecified chronic kidney disease (principal); J96.01 Acute respiratory failure with hypoxia; J96.02 Acute respiratory failure with hypercapnia; Z20.822 Contact with and (suspected) exposure to COVID-19; I50.43 Acute on chronic combined systolic (congestive) and diastolic (congestive) heart failure; E11.22 Type 2 diabetes mellitus with diabetic chronic kidney disease; I42.8 Other cardiomyopathies; E11.65 Type 2 diabetes mellitus with hyperglycemia; E66.01 Morbid (severe) obesity due to excess calories; E87.5 Hyperkalemia; N18.9 Chronic kidney disease, unspecified; Z68.43 Body mass index [BMI] 50.0-59.9, adult; G47.33 Obstructive sleep apnea (adult) (pediatric); J44.9 Chronic obstructive pulmonary disease, unspecified; Z79.4 Long term (current) use of insulin; Z88.5 Allergy status to narcotic agent; Z88.6 Allergy status to analgesic agent; Z79.82 Long term (current) use of aspirin; Z79.899 Other long term (current) drug therapy
CPT/HCPCS: 36415; 71045; 71046; 80048; 80053; 82803; 82947; 83036; 83605; 83880; 84484; 85025; 85027; 85610; 87040; 87493; 87635; 93005; 94640; 96374; 96375; 99284; 99285; J0610; J1940; J2405; J2930

== ENCOUNTER → 2021-04-10 14:53 | Outpatient (BNVA) | payer MEDICAID, SELFPAY | PROVIDERS: PCP Internal Medicine; Visit Provider Internal Medicine | DX: J45.909 Unspecified asthma, uncomplicated (principal); J96.90 Respiratory failure, unspecified, unspecified whether with hypoxia or hypercapnia; G47.33 Obstructive sleep apnea (adult) (pediatric); E66.01 Morbid (severe) obesity due to excess calories; I42.8 Other cardiomyopathies; I50.43 Acute on chronic combined systolic (congestive) and diastolic (congestive) heart failure | CPT/HCPCS: 99202 ==

== ENCOUNTER 2021-04-30 20:20 | Emergency (ER) | payer MEDICAID, SELFPAY ==
--- NOTE | ~2021-04-30 | XR_ITS ---
EXAMINATION: XR CHEST CLINICAL INFORMATION: Shortness of breath COMPARISON: Previous chest x-ray most recent 04/05/2021 TECHNIQUE: 2 views of the chest were obtained. FINDINGS: The cardiac silhouette is enlarged but stable. There is pulmonary venous redistribution and increased perihilar attenuation suggestive of mild CHF. The lungs are otherwise clear. There is no pleural effusion. Bony structures are unremarkable. XR/XR chest 2V IMPRESSION: Enlarged cardiac silhouette and pulmonary venous redistribution/mild CHF.
[2021-04-30 20:55] VITALS: BP 132/96; BP 147/61; PULSE 79; PULSE 84; RESP 20; TEMP 36.9; O2SAT 98; O2SAT 99; BMI 54.5
[2021-04-30 20:59] VITALS: BP 147/61; PULSE 79; RESP 20; TEMP 36.9; O2SAT 98
[2021-04-30 21:39] LABS: MANUAL DIFF FLAG NO
[2021-04-30 21:41] LABS: Basophils Percent Auto 0.1 % (0-2); Eosinophils Absolute Auto 0.2 X10*3/uL (0.0-0.4); Eosinophils Percent Auto 2.4 % (0-4); Hematocrit 36.2 % (37-47); Hemoglobin 10.7 g/dl (12.0-16.0); Imm Gran Abs Auto 0.03 X10*3/uL (0.00-0.03); Imm Gran Pct Auto 0.4 % (0.0-0.4); Lymphocytes Absolute Auto 1.1 X10*3/uL (1.2-4.9); Lymphocytes Percent Auto 16.3 % (20-40); Mean Corpuscular HGB Conc 29.6 g/dl (31.0-35.0); Mean Corpuscular Hemoglobin 25.1 pg (27.0-33.0); Mean Platelet Volume 9.7 fL (9.4-12.3); Monocytes Absolute Auto 0.7 X10*3/uL (0.1-1.2); Monocytes Percent Auto 10.4 % (2-11); Neutrophils Absolute Auto 4.8 X10*3/uL (2.0-8.3); Neutrophils Percent Auto 70.4 % (45-73); Platelet Count 107 X10*3/uL (160-400); Red Blood Count 4.26 X10*6/uL (4.20-5.50); Red Cell Distribution Width 17.5 % (11.0-16.0); White Blood Count 6.8 X10*3/uL (4.8-10.8)
[2021-04-30 21:54] LABS: COVID-19 Test Negative (Negative)
[2021-04-30 21:59] LABS: Alanine Aminotransferase 11 U/L (0-31); Albumin Level 3.9 g/dL (3.5-5.0); Alkaline Phosphatase 85 U/L (39-117); Aspartate Amino Transferase 13 U/L (5-31); Bilirubin Total 0.3 mg/dL (0.0-1.0); Blood Urea Nitrogen 21 mg/dL (9-16); Calcium 8.4 mg/dL (8.4-10.2); Creatinine Clr Calc Pharmacy 64.9; Estimated Glomerular Filt Rate 44; Glucose Random 104 mg/dL (60-115); Total Protein 6.7 g/dL (6.5-8.0)
[2021-04-30 22:09] LABS: Anion Gap 8 (12-20); Carbon Dioxide 36 mmol/L (22-29); Chloride 105 mmol/L (96-108); Potassium 4.4 mmol/L (3.3-5.1); Sodium 145 mmol/L (135-145)
--- NOTE | 2021-04-30 22:52 | ED.SOB ---
HPI - SOB/Dyspnea General Chief Complaint: Dyspnea Stated Complaint: copd sob Time Seen by Provider: 04/30/21 21:09 History of Present Illness HPI Narrative: Patient is 60 years old history of congestive heart failure history of COPD history of morbid obesity. Complaining of coughing upper respiratory symptom complaining of generalized malaise. Patient baseline is on 2 L of oxygen at home. Patient did not have any change in smell or taste. Feel very short of breath feels very weak and tired. Patient is not immunized for COVID. Positive weakness. Positive leg swelling that is chronic. Related Data Home Medications Medication Instructions Recorded Confirmed albuterol sulfate 90 mcg/actuation 2 puff INHALATION Q4H PRN 11/23/20 04/01/21 aerosol inhaler (ProAir HFA) aspirin 81 mg tablet,delayed 81 mg PO DAILY 11/23/20 04/01/21 release fluoxetine 40 mg capsule 40 mg PO DAILY 11/23/20 04/01/21 fluticasone propionate 110 2 puff INHALATION BID 11/23/20 04/01/21 mcg/actuation HFA aerosol inhaler (Flovent HFA) metoprolol succinate 50 mg 50 mg PO DAILY 11/23/20 04/01/21 tablet,extended release 24 hr omeprazole 20 mg capsule,delayed 20 mg PO BEDTIME 11/23/20 04/01/21 release simvastatin 20 mg tablet 20 mg PO BEDTIME 11/23/20 04/01/21 cholecalciferol (vitamin D3) 50 50 mcg PO DAILY 12/11/20 04/01/21 mcg (2,000 unit) capsule isosorbide mononitrate 30 mg 30 mg PO DAILY 12/11/20 04/01/21 tablet,extended release 24 hr tizanidine 4 mg tablet 4 mg PO BEDTIME 12/11/20 04/01/21 gabapentin 400 mg capsule 1 cap PO TID 01/09/21 04/01/21 Previous Rx's Medication Instructions Recorded pregabalin 100 mg capsule (Lyrica) 100 mg PO BID #10 cap 12/18/20 insulin glargine 100 unit/mL 60 unit SUBCUT BEDTIME #1 ml 01/16/21 subcutaneous solution (Lantus U-100 Insulin) insulin lispro 100 unit/mL See Protocol SUBCUT QIDACHS #1 ml 01/16/21 subcutaneous solution (Humalog U-100 Insulin) ipratropium 0.5 mg-albuterol 3 mg 3 ml INHALATION RQ4H WHILE AWAKE 01/16/21 (2.5 mg base)/3 mL nebulization PRN #1 ml soln torsemide 20 mg tablet 20 mg PO BID@0830,1430 #60 tab 04/05/21 Allergies Allergy/AdvReac Type Severity Reaction Status Date / Time No Known Allergies Allergy Verified 05/01/21 00:24 acetaminophen [Tylenol] AdvReac Unknown vommiting, Verified 05/01/21 00:24 itching ibuprofen AdvReac Unknown vommiting, Verified 05/01/21 00:24 itching morphine AdvReac Unknown vomiting Verified 05/01/21 00:24 Motrin Allergy Unknown itching Uncoded 05/01/21 00:24 Review of Systems Review of Systems: Positive shortness of breath, positive leg swelling PMFSH Past Medical History Attestation statement: The following information was validated with the patient. Medical History Acute on chronic combined systolic and diastolic CHF (congestive heart failure) Asthma Asthma delivery delivered Chronic pain CKD (chronic kidney disease) stage 3, GFR 30-59 ml/min Congestive heart failure Depression Diabetes Diabetic neuropathy, painful High cholesterol Hypertension Morbid obesity NICM (nonischemic cardiomyopathy) Obesity hypoventilation syndrome DANIEL (obstructive sleep apnea) DANIEL (obstructive sleep apnea) Respiratory failure Surgical History Hx of cholecystectomy Social History Social History Household Members: None Household Members Other:: [facility]ANDSON Housing: House Housing Other:: [facility] Do you presently have visiting nurse or other home services: Yes Alcohol intake: never Patient Tobacco Use Status: Former Tobacco user Tobacco use type: Cigarette Years Smoked: 38 Second Hand Smoke Exposure: No Use of substances other than those prescribed or required for medical reasons: No Substance Use Type: Marijuana Advance Directives: Yes Advance Directives on File: Yes Advance Directives Date on File: 12/19/20 service: No Current occupational status: disabled Physical Exam Vital Signs: Vital Signs: Last Vital Signs Temp 98.5 F 04/30/21 20:59 Pulse 79 04/30/21 20:59 Resp 20 04/30/21 20:59 BP 147/61 H 04/30/21 20:59 Pulse Ox 98 04/30/21 20:59 Oxygen Flow Rate 2 04/30/21 20:55 Body Mass Index 54.5 Appearance: Alert. Oriented X3. No acute distress. Eyes: Pupils equal, round and reactive to light. ENT: Pharynx normal. Neck: Normal inspection. Neck supple. No lymph nodes noted. No crepitus CVS: Normal heart rate and rhythm. Pulses normal. Normal S1 and S2 Respiratory: No respiratory distress. Breath sounds normal. No Wheezing. No rales Abdomen: Soft and nontender. No rigidity. No distention. good BS x4 Skin: Skin warm and dry. Normal skin color. Normal skin turgor. Extremities: 3+ pitting edema in the bilateral lower extremity Neuro: Oriented X 3. No motor deficit. No sensory deficit. Moving all extermities. No slurred speech MDM - SOB/Dyspnea MDM Narrative Medical decision making narrative: Patient's O2 sat is 92% on 2 L of oxygen. Patient's BNP slightly elevated at 200 this is approximately baseline for patient. Chest x-ray showed slight increase in central vasculature consistent with mild CHF. However patient is lying flat statin normal. Leg is always swollen. Patient's COVID test was negative. Likely has chronic congestive heart failure. Patient has 1 set of troponin with negative. As her symptoms were persistent been ongoing for days. Patient's EKG showed a sinus pattern. NM QRS within normal limits. QTC was 500. Patient did has some PVCs. It appears to be unifocal. There is no significant change from previous. Differential Diagnosis Differential diagnosis: Likely congestive heart failure Medical Records Attestation: I reviewed the patient's medical records. Lab Data Attestation: I reviewed the patient's lab results. Result diagrams: 04/30/21 21:34 04/30/21 21:34 Labs: Lab Results 04/30/21 04/30/21 04/30/21 Range/Units 21:34 21:34 21:34 WBC 6.8 (4.8-10.8) X10*3/uL RBC 4.26 (4.20-5.50) X10*6/uL Hgb 10.7 L (12.0-16.0) g/dl Hct 36.2 L (37-47) % MCV 85.0 (80-98) fL MCH 25.1 L (27.0-33.0) pg MCHC 29.6 L (31.0-35.0) g/dl RDW 17.5 H (11.0-16.0) % Plt Count 107 L D (160-400) X10*3/uL MPV 9.7 (9.4-12.3) fL Immature Gran % (Auto) 0.4 (0.0-0.4) % Neut % (Auto) 70.4 (45-73) % Lymph % (Auto) 16.3 L (20-40) % [place] % (Auto) 10.4 (2-11) % Eos % (Auto) 2.4 (0-4) % Baso % (Auto) 0.1 (0-2) % Lymph # (Auto) 1.1 L (1.2-4.9) X10*3/uL [place] # (Auto) 0.7 (0.1-1.2) X10*3/uL Eos # (Auto) 0.2 (0.0-0.4) X10*3/uL Baso # (Auto) 0.0 (0.0-0.2) X10*3/uL Abs Immat Gran (auto) 0.03 (0.00-0.03) X10*3/uL Absolute Neuts (auto) 4.8 (2.0-8.3) X10*3/uL Absolute Nucleated RBC 0.000 (0.0-0.012) X10*3/uL Nucleated RBC % (auto) 0.0 (0.0-0.2) /100WBC Sodium 145 (135-145) mmol/L Potassium 4.4 (3.3-5.1) mmol/L Chloride 105 (96-108) mmol/L Carbon Dioxide 36 H (22-29) mmol/L Anion Gap 8 L (12-20) BUN 21 H D (9-16) mg/dL Creatinine 1.24 (0.5-1.4) mg/dL Estim Creat Clear Calc 64.9 Estimated GFR 44 POC Glucose (60-115) mg/dL Random Glucose 104 (60-115) mg/dL Calcium 8.4 (8.4-10.2) mg/dL Total Bilirubin 0.3 (0.0-1.0) mg/dL AST 13 (5-31) U/L ALT 11 (0-31) U/L Alkaline Phosphatase 85 (39-117) U/L Troponin I High Sens (<3.5-17.0) ng/L B-Natriuretic Peptide (<100) pg/mL Total Protein 6.7 (6.5-8.0) g/dL Albumin 3.9 (3.5-5.0) g/dL COVID-19 ([facility]) Negative (Negative) COVID-19 Clin Com See Note 04/30/21 05/01/21 Range/Units 21:34 00:41 WBC (4.8-10.8) X10*3/uL RBC (4.20-5.50) X10*6/uL Hgb (12.0-16.0) g/dl Hct (37-47) % MCV (80-98) fL MCH (27.0-33.0) pg MCHC (31.0-35.0) g/dl RDW (11.0-16.0) % Plt Count (160-400) X10*3/uL MPV (9.4-12.3) fL Immature Gran % (Auto) (0.0-0.4) % Neut % (Auto) (45-73) % Lymph % (Auto) (20-40) % [place] % (Auto) (2-11) % Eos % (Auto) (0-4) % Baso % (Auto) (0-2) % Lymph # (Auto) (1.2-4.9) X10*3/uL [place] # (Auto) (0.1-1.2) X10*3/uL Eos # (Auto) (0.0-0.4) X10*3/uL Baso # (Auto) (0.0-0.2) X10*3/uL Abs Immat Gran (auto) (0.00-0.03) X10*3/uL Absolute Neuts (auto) (2.0-8.3) X10*3/uL Absolute Nucleated RBC (0.0-0.012) X10*3/uL Nucleated RBC % (auto) (0.0-0.2) /100WBC Sodium (135-145) mmol/L Potassium (3.3-5.1) mmol/L Chloride (96-108) mmol/L Carbon Dioxide (22-29) mmol/L Anion Gap (12-20) BUN (9-16) mg/dL Creatinine (0.5-1.4) mg/dL Estim Creat Clear Calc Estimated GFR POC Glucose 131 H (60-115) mg/dL Random Glucose (60-115) mg/dL Calcium (8.4-10.2) mg/dL Total Bilirubin (0.0-1.0) mg/dL AST (5-31) U/L ALT (0-31) U/L Alkaline Phosphatase (39-117) U/L Troponin I High Sens 10.9 (<3.5-17.0) ng/L B-Natriuretic Peptide 223 H (<100) pg/mL Total Protein (6.5-8.0) g/dL Albumin (3.5-5.0) g/dL COVID-19 ([facility]) (Negative) COVID-19 Clin Com Discharge Plan Discharge Clinical Impression: Morbid obesity, Upper respiratory infection Patient Disposition: Home, Self-Care Instructions: Upper Respiratory Infection (ED), Viral Syndrome (ED) Prescriptions: No Action gabapentin 400 mg capsule 1 cap PO TID RF: 0 ipratropium-albuterol 0.5 mg-3 mg(2.5 mg base)/3 mL Solution For Nebulization 3 ml inhalation RQ4H WHILE AWAKE PRN (Reason: Shortness Of Breath/Wheezing) Qty: 1 RF: 0 Lantus U-100 Insulin 100 unit/mL Solution 60 unit subcut BEDTIME Qty: 1 RF: 0 insulin lispro [Humalog U-100 Insulin] 100 unit/mL Solution See Protocol unit subcut QIDACHS Qty: 1 RF: 0 torsemide 20 mg Tablet 20 mg PO BID@0830,1430 Qty: 60 RF: 0 fluoxetine 40 mg capsule 40 mg PO DAILY RF: 0 metoprolol succinate 50 mg tablet extended release 24 hr 50 mg PO DAILY RF: 0 aspirin 81 mg tablet,delayed release (DR/EC) 81 mg PO DAILY RF: 0 simvastatin 20 mg tablet 20 mg PO BEDTIME RF: 0 omeprazole 20 mg capsule,delayed release(DR/EC) 20 mg PO BEDTIME RF: 0 albuterol sulfate [ProAir HFA] 90 mcg/actuation HFA aerosol inhaler 2 puff inhalation Q4H PRN (Reason: Dyspnea) RF: 0 Flovent HFA 110 mcg/actuation HFA aerosol inhaler 2 puff inhalation BID RF: 0 tizanidine 4 mg Tablet 4 mg PO BEDTIME RF: 0 isosorbide mononitrate 30 mg Tablet Extended Release 24 Hr 30 mg PO DAILY RF: 0 cholecalciferol (vitamin D3) 50 mcg (2,000 unit) Capsule 50 mcg PO DAILY RF: 0 pregabalin [Lyrica] 100 mg Capsule 100 mg PO BID Qty: 10 RF: 0 Referrals: Tavo Huber MD [Primary Care Provider] - 2 days
[2021-04-30 23:11] LABS: B Type Natriuretic Peptide 223 pg/mL (<100); Troponin-I High Sensitivity 10.9 ng/L (<3.5-17.0)
[2021-05-01 00:44] LABS: Glucose, Whole Blood 131 mg/dL (60-115)
--- NOTE | 2021-05-01 00:58 | ECG_ITS ---
Test Reason : SOB Blood Pressure : / mmHG Vent. Rate : 100 BPM Atrial Rate : 100 BPM P-R Int : 160 ms QRS Dur : 102 ms QT Int : 388 ms P-R-T Axes : 063 063 064 degrees QTc Int : 500 ms Sinus rhythm with frequent Premature ventricular complexes Intra-ventricular conduction delay Nonspecific ST abnormality Abnormal ECG When compared with ECG of 31-MAR-2021 21:26, Premature ventricular complexes are now Present Referred By: Maru Gonzalez Electronically Signed By:FLOWER WATSON MD
--- NOTE | 2021-05-01 01:04 | PC.NURSE ---
Pt was in bed with 2l nc on but the tank was empty. pt sat at rest 86% on room air. 2l nc applied and sat at rest came up to 91%. pt was then ambulated with her cane, 2l nc with steady gait, rr increased to 24 from baseline and sat remained 90-91% on 2l nc. rn and dr pierre made aware of these vitals. pt did say she felt sob like she gets at home.
== END 2021-05-01 01:46 | disposition home or self-care (01) ==
PROVIDERS: Emergency Provider Emergency Medicine Emergency Medical Services; PCP Internal Medicine
DX: J06.9 Acute upper respiratory infection, unspecified (principal); J44.9 Chronic obstructive pulmonary disease, unspecified; R06.02 Shortness of breath; E66.01 Morbid (severe) obesity due to excess calories; F17.210 Nicotine dependence, cigarettes, uncomplicated; Z99.81 Dependence on supplemental oxygen; Z20.822 Contact with and (suspected) exposure to COVID-19; Z79.899 Other long term (current) drug therapy; Z79.82 Long term (current) use of aspirin; Z71.6 Tobacco abuse counseling; Z71.3 Dietary counseling and surveillance; Z68.29 Body mass index [BMI] 29.0-29.9, adult
CPT/HCPCS: 36415; 71046; 80053; 82947; 83880; 84484; 85025; 87635; 93005; 99283; 99285

== ENCOUNTER 2021-06-07 06:36 | Inpatient (IN) | payer MEDICAID, SELFPAY ==
[2021-06-07] VITALS (7 sets, daily range): BP systolic 143–160; BP diastolic 66–78; PULSE 73–98; RESP 16–20; TEMP 36.8–37.3; O2SAT 91–99; BMI 60.9
--- NOTE | ~2021-06-07 | US_ITS ---
EXAMINATION: US DIAGNOSTIC ULTRASOUND BREAST, RIGHT CLINICAL INFORMATION: Cellulitis right breast. COMPARISON: CT chest noncontrast 06/10/2021 mammography 04/10/2016. TECHNIQUE: Ultrasound of the right breast is performed using linear high frequency transducer with grayscale imaging and color Doppler. The area of symptoms and erythema is targeted. FINDINGS: There is an intradermal abscess at site of erythema 9:00 position 5 cm from nipple measuring 0.4 cm in thickness by 2.2 x 2.4 cm. There are 2 fine internal avascular septations within the collection. There is some peripheral hyperemia on color Doppler. There is no subdermal extension demonstrated on the submitted images. The skin is thickened in the area of abscess as expected. There is no edema tracking in soft tissue planes. There is no cystic or solid mass within the breast field of view. US/US breast RT limited IMPRESSION: Intradermal abscess 9:00 position 5 cm from nipple measuring 0.4 cm diameter by 2.2 x 2.4 cm. No subdermal extension. ASSESSMENT: BI-RADS 2: Benign RECOMMENDATION: Management of intradermal abscess right breast. Consider follow-up ultrasound in 4 days to assess for change.
--- NOTE | ~2021-06-07 | CT_ITS ---
EXAMINATION: CT CHEST WITHOUT CONTRAST CLINICAL INFORMATION: Fever. COMPARISON: Chest x-ray 06/09/2021 TECHNIQUE: Multidetector volumetric CT imaging of the chest was done. Axial MIP volume rendering provided. Sagittal and coronal reformatted images were obtained. This CT examination was performed using dose optimization techniques as appropriate, variously including the following: *Automated exposure control *Adjustment of mA and/or kV according to patient size (this includes techniques or standardized protocols for targeted exams where dose is matched to indication/reason for exam; i.e. extremities or head) *Use of iterative reconstruction technique DLP: 626 mGy-cm FINDINGS: TITLE I TEACHER: Unremarkable. LUNGS: The lungs are expanded without acute pneumonic process. There is bibasilar and right upper lobe posterior segment linear atelectasis. There is a 4 mm subpleural nodule right lower lobe axial image 306/4. No additional nodules visualized. There is mild thickening and nodularity of right minor fissure. MEDIASTINUM: The thyroid lobes are symmetrical and normal. The central trachea and bronchi are widely patent. Heart size and the great vessels are normal caliber. No abnormal size mediastinal or hilar lymph nodes seen. Trace coronary artery calcification seen. No abnormal size mediastinal or hilar lymph nodes seen. PLEURA: There is minimal bilateral posterior basilar pleural thickening but no calcified pleural plaques or effusion. AXILLA: No lymphadenopathy. UPPER ABDOMEN: Visualized liver, spleen, pancreas and bilateral adrenal glands unremarkable. The gallbladder has been surgically removed. OSSEOUS STRUCTURES: There is no lytic or sclerotic process. There is mild ventral spondylosis lower dorsal spine. CT/CT chest wo con IMPRESSION: No acute pneumonic process. There is bilateral bibasilar and right upper lobe plate atelectasis. 4 nonspecific subpleural nodule right lower lobe. Consider follow-up in one year. Fleischner guidelines were followed.
--- NOTE | ~2021-06-07 | XR_ITS ---
EXAMINATION: XR CHEST CLINICAL INFORMATION: Shortness of breath COMPARISON: 04/30/2021 TECHNIQUE: Portable 7:22 AM view of the chest was obtained. FINDINGS: There is mild central pulmonary vascular congestion and cardiomegaly consistent with mild CHF. No pleural effusion or major zones of atelectasis. No other focal lesion. No ectopic air. XR/XR chest 1V IMPRESSION: Mild CHF.
--- NOTE | ~2021-06-07 | XR_ITS ---
EXAMINATION: XR CHEST CLINICAL INFORMATION: Fever COMPARISON: 06/07/2021 TECHNIQUE: Frontal view of the chest was obtained. FINDINGS: Stable prominence of the cardiac silhouette. Mild central vascular congestion. Lungs are clear. No focal consolidation, effusion, pulmonary edema. No pneumothorax. XR/XR chest 1V IMPRESSION: No evidence of focal consolidation.
--- NOTE | ~2021-06-07 | CT_ITS ---
EXAMINATION: CT ABDOMEN AND PELVIS WITHOUT CONTRAST CLINICAL INFORMATION: Left lower quadrant pain COMPARISON: None TECHNIQUE: Multidetector volumetric imaging was performed from the superior aspect of the liver through the pubic symphysis. Sagittal and coronal reformatted images were obtained on the technologist's workstation. This CT examination was performed using dose optimization techniques as appropriate, variously including the following: *Automated exposure control *Adjustment of mA and/or kV according to patient size (this includes techniques or standardized protocols for targeted exams where dose is matched to indication/reason for exam; i.e. extremities or head) *Use of iterative reconstruction technique DLP: 1219 mGy-cm FINDINGS: LUNG BASES: There is minimal bibasilar dependent atelectasis with minimal posterior pleural thickening. The heart size is normal. LIVER, GALLBLADDER, AND BILIARY TREE: The liver is normal in size, shape, and attenuation. No focal hepatic lesion or biliary ductal dilatation is present. The gallbladder has been surgically removed. PANCREAS: Unremarkable. SPLEEN: Unremarkable. ADRENAL GLANDS: Unremarkable. KIDNEYS AND URETERS: The kidneys are normal in size, shape, and attenuation. No hydronephrosis, hydroureter, or calculi seen. There is mild right lateral perinephric stranding. BLADDER: Unremarkable. GASTROINTESTINAL TRACT: There is scattered stool, diverticula and gas seen throughout the colon without significant distention. The small bowel loops are normal caliber. Appendix is normal caliber. No inflammatory process seen in the abdomen. ABDOMINAL WALL: No significant hernia is appreciated. LYMPH NODES: Normal. VASCULAR: Unremarkable. PELVIC VISCERA: The uterus is anteverted and appears unremarkable. OSSEOUS STRUCTURES: Mild ventral spondylosis L5-S1, L4-L5, L3-L4 and L2-L3 disc levels. No aggressive lytic or sclerotic process seen mildly indistinct changes L5-S1 disc level. CT/CT abdomen pelvis wo con IMPRESSION: No acute intra-abdominal process seen. Scattered colonic diverticulosis without diverticulitis. There is no radiopaque renal calculi or hydronephrosis. Fleischner guidelines were followed.
--- NOTE | 2021-06-07 06:44 | ECG_ITS ---
Test Reason : DYSPNEA Blood Pressure : / mmHG Vent. Rate : 082 BPM Atrial Rate : 082 BPM P-R Int : 160 ms QRS Dur : 102 ms QT Int : 418 ms P-R-T Axes : 056 041 061 degrees QTc Int : 488 ms Normal sinus rhythm Normal ECG When compared with ECG of 01-MAY-2021 01:08, Premature ventricular complexes are no longer Present Heart rate has decreased Referred By: Liz Cassidy Electronically Signed By:FLOWER WATSON MD
--- NOTE | 2021-06-07 06:54 | ED_ITS ---
HPI - SOB/Dyspnea General Chief Complaint: Dyspnea Stated Complaint: chf exacerbation Time Seen by Provider: 06/07/21 06:43 Source: patient, EMS and old records reviewed Mode of arrival: EMS Limitations: no limitations History of Present Illness MD elicited complaint: shortness of breath Pertinent past history: congestive heart failure Onset (ago): week(s) (1) Timing: progressively worsening Severity: severe Exacerbating factors: lying flat and exertion Relieving factors: rest and upright position Known history of: congestive heart failure Associated symptoms: orthopnea and other (LE edema) Treatment prior to arrival: oxygen Related Data Home oxygen amount: 2 liters Home Medications Medication Instructions Recorded Confirmed albuterol sulfate 90 mcg/actuation 2 puff INHALATION Q4H PRN 11/23/20 04/01/21 aerosol inhaler (ProAir HFA) aspirin 81 mg tablet,delayed 81 mg PO DAILY 11/23/20 04/01/21 release fluoxetine 40 mg capsule 40 mg PO DAILY 11/23/20 04/01/21 fluticasone propionate 110 2 puff INHALATION BID 11/23/20 04/01/21 mcg/actuation HFA aerosol inhaler (Flovent HFA) metoprolol succinate 50 mg 50 mg PO DAILY 11/23/20 04/01/21 tablet,extended release 24 hr omeprazole 20 mg capsule,delayed 20 mg PO BEDTIME 11/23/20 04/01/21 release simvastatin 20 mg tablet 20 mg PO BEDTIME 11/23/20 04/01/21 isosorbide mononitrate 30 mg 30 mg PO DAILY 12/11/20 04/01/21 tablet,extended release 24 hr tizanidine 4 mg tablet 4 mg PO BEDTIME 12/11/20 04/01/21 gabapentin 400 mg capsule 400 mg PO TID 01/09/21 04/01/21 amlodipine 10 mg tablet 1 tab PO DAILY 06/07/21 bumetanide 2 mg tablet 1 tab PO DAILY 06/07/21 cholecalciferol (vitamin D3) 25 1 cap PO DAILY 06/07/21 mcg (1,000 unit) capsule furosemide 20 mg tablet 1 tab PO TID 06/07/21 insulin glargine 100 unit/mL unit SUBCUT 06/07/21 subcutaneous solution (Lantus U-100 Insulin) nystatin 100,000 unit/gram topical TOPICAL 06/07/21 powder Previous Rx's Medication Instructions Recorded pregabalin 100 mg capsule (Lyrica) 100 mg PO BID #10 cap 12/18/20 insulin lispro 100 unit/mL See Protocol SUBCUT QIDACHS #1 ml 01/16/21 subcutaneous solution (Humalog U-100 Insulin) ipratropium 0.5 mg-albuterol 3 mg 3 ml INHALATION RQ4H WHILE AWAKE 01/16/21 (2.5 mg base)/3 mL nebulization PRN #1 ml soln torsemide 20 mg tablet 20 mg PO BID@0830,1430 #60 tab 04/05/21 Allergies Allergy/AdvReac Type Severity Reaction Status Date / Time No Known Allergies Allergy Verified 05/01/21 00:24 acetaminophen [Tylenol] AdvReac Unknown vommiting, Verified 05/01/21 00:24 itching ibuprofen AdvReac Unknown vommiting, Verified 05/01/21 00:24 itching morphine AdvReac Unknown vomiting Verified 05/01/21 00:24 Motrin Allergy Unknown itching Uncoded 05/01/21 00:24 Review of Systems Review of Systems: Constitutional : No Fever, No Chills ENT/Mouth : No sore throat, No Rhinorrhea, No Swallowing Difficulty Eyes: No Eye Pain, No Swelling, No Redness Cardiovascular : No Chest Pain, positive SOB, pos Orthopnea, positive Edema Respiratory : No Cough, No Sputum, No Wheezing, positive dyspnea Gastrointestinal : No Nausea, No Vomiting, No Diarrhea, No abdominal Pain, No Hematochezia, No Melena Genitourinary : No Dysuria, No Urinary Frequency, No Hematuria Musculoskeletal : No joint pain, No Myalgias Skin : No Skin Lesions, No rash Neuro : pos Weakness, No Numbness, No Dizziness, No Headache Psych : No Anxiety/Panic, No Depression Heme/Lymph: No Bruising, No Lymphadenopathy Endocrine : No Polyuria, No Polydipsia All other systems reviewed and are negative [facility] Past Medical History Attestation statement: The following information was validated with the patient. Medical History Acute on chronic combined systolic and diastolic CHF (congestive heart failure) Asthma Asthma delivery delivered Chronic pain CKD (chronic kidney disease) stage 3, GFR 30-59 ml/min Congestive heart failure Depression Diabetes Diabetic neuropathy, painful High cholesterol Hypertension Morbid obesity NICM (nonischemic cardiomyopathy) Obesity hypoventilation syndrome DANIEL (obstructive sleep apnea) DANIEL (obstructive sleep apnea) Respiratory failure Surgical History Hx of cholecystectomy Social History Social History Household Members: None Household Members Other:: GRANDSON Housing: House Housing [facility]:: [employer] Do you presently have visiting nurse or other home services: Yes Alcohol intake: never Patient Tobacco Use Status: Former Tobacco user Tobacco use type: Cigarette Years Smoked: 38 Second Hand Smoke Exposure: No Substance Use Type: Marijuana Advance Directives: Yes Advance Directives on File: Yes Advance Directives Date on File: 12/19/20 service: No Current occupational status: disabled Physical Exam Vital Signs: Vital Signs: Last Vital Signs Temp 98.7 F 06/07/21 08:00 Pulse 87 06/07/21 08:08 Resp 18 06/07/21 08:00 BP 143/66 H 06/07/21 08:00 Pulse Ox 97 06/07/21 08:00 Oxygen Flow Rate 2 06/07/21 06:41 Body Mass Index 60.9 Appearance: Alert. Oriented X3. No acute distress. Eyes: Pupils equal, round and reactive to light. ENT: Pharynx normal. Neck: Neck supple. Short neck CVS: Normal heart rate and rhythm. Pulses normal. Respiratory: No respiratory distress. Breath sounds bases diminished Abdomen: Soft and nontender. Obese Skin: Skin warm and dry. Normal skin color. Extremities: Bilateral pitting 2+ edema has some superficial ulcerations noted on anterior shins Neuro: Oriented X 3. No motor deficit. No sensory deficit. Course Course Course Narrative: very mild CHF - 99% on NC, her BNP is not markedly higher than her baseline actually on the lower end - given IV bumex will give neb as well and then reassess patient wants to go to STR BNP and CXR mild no increased O2 demands does not need inpatient admission Patient placed in physician observation at 917am. The indication for observation is that the patient needs more time to be assessed for possible STR as she needs more help. At this time the patient is well developed well nourished, lungs clear, CV RRR, abd nontender, neuro is intact. MDM - SOB/Dyspnea MDM Narrative Medical decision making narrative: 61 yo female with hxo f CKD, CHF, DM, HTN, HLD, NICM, DANIEL states she was told this past week to double her diuretic though she cannot tell me the exact dose notes she feels she has been gaining weight, her legs are getting bigger, she is more short of breath even on her home O2 2L, her daughter came to visit saw her and told her she needed to be seen. At this time labs, EKG, troponin, BNP and IV bumex ordered. Suspect CHF exacerbation at this time. Lab Data Result diagrams: 06/07/21 07:21 06/07/21 07:21 Labs: Lab Results 06/07/21 06/07/21 06/07/21 Range/Units 07: 07: 07:21 WBC 7.6 (4.8-10.8) X10*3/uL RBC 4.09 L (4.20-5.50) X10*6/uL Hgb 10.3 L (12.0-16.0) g/dl Hct 35.1 L (37.0-47.0) % MCV 85.8 (80.0-98.0) fL MCH 25.2 L (27.0-33.0) pg MCHC 29.3 L (31.0-35.0) g/dl RDW 18.3 H (11.0-16.0) % Plt Count 179 (160-400) X10*3/uL MPV 9.5 (9.4-12.3) fL Immature Gran % (Auto) 0.4 (0.0-0.4) % Neut % (Auto) 74.2 H (45-73) % Lymph % (Auto) 14.0 L (20-40) % Mckenzie % (Auto) 9.7 (2-11) % Eos % (Auto) 1.6 (0-4) % Baso % (Auto) 0.1 (0-2) % Lymph # (Auto) 1.1 L (1.2-4.9) X10*3/uL Mckenzie # (Auto) 0.7 (0.1-1.2) X10*3/uL Eos # (Auto) 0.1 (0.0-0.4) X10*3/uL Baso # (Auto) 0.0 (0.0-0.2) X10*3/uL Abs Immat Gran (auto) 0.03 (0.00-0.03) X10*3/uL Absolute Neuts (auto) 5.7 (2.0-8.3) x10*3/uL Absolute Nucleated RBC 0.000 (0.0-0.012) X10*3/uL Nucleated RBC % (auto) 0.0 (0.0-0.2) /100WBC Sodium 143 (135-145) mmol/L Potassium 4.9 (3.3-5.1) mmol/L Chloride 102 (96-108) mmol/L Carbon Dioxide 32 H (22-29) mmol/L Anion Gap 14 (12-20) BUN 32 H D (9-16) mg/dL Creatinine 1.54 H (0.5-1.4) mg/dL Estim Creat Clear Calc 51.4 Estimated GFR 34 Random Glucose 231 H (60-115) mg/dL Calcium 8.6 (8.4-10.2) mg/dL Magnesium 2.2 (1.6-2.6) mg/dL Total Bilirubin 0.5 (0.0-1.0) mg/dL Direct Bilirubin 0.2 (0.0-0.5) mg/dL AST 14 (5-31) U/L ALT 11 (0-31) U/L Alkaline Phosphatase 88 (39-117) U/L Troponin I High Sens 15.0 (<3.5-17.0) ng/L B-Natriuretic Peptide 213 H (<100) pg/mL Total Protein 6.7 (6.5-8.0) g/dL Albumin 3.7 (3.5-5.0) g/dL COVID-19 ([facility]) (Negative) COVID-19 Clin Com 06/07/21 Range/Units 07:21 WBC (4.8-10.8) X10*3/uL RBC (4.20-5.50) X10*6/uL Hgb (12.0-16.0) g/dl Hct (37.0-47.0) % MCV (80.0-98.0) fL MCH (27.0-33.0) pg MCHC (31.0-35.0) g/dl RDW (11.0-16.0) % Plt Count (160-400) X10*3/uL MPV (9.4-12.3) fL Immature Gran % (Auto) (0.0-0.4) % Neut % (Auto) (45-73) % Lymph % (Auto) (20-40) % Mckenzie % (Auto) (2-11) % Eos % (Auto) (0-4) % Baso % (Auto) (0-2) % Lymph # (Auto) (1.2-4.9) X10*3/uL Mckenzie # (Auto) (0.1-1.2) X10*3/uL Eos # (Auto) (0.0-0.4) X10*3/uL Baso # (Auto) (0.0-0.2) X10*3/uL Abs Immat Gran (auto) (0.00-0.03) X10*3/uL Absolute Neuts (auto) (2.0-8.3) x10*3/uL Absolute Nucleated RBC (0.0-0.012) X10*3/uL Nucleated RBC % (auto) (0.0-0.2) /100WBC Sodium (135-145) mmol/L Potassium (3.3-5.1) mmol/L Chloride (96-108) mmol/L Carbon Dioxide (22-29) mmol/L Anion Gap (12-20) BUN (9-16) mg/dL Creatinine (0.5-1.4) mg/dL Estim Creat Clear Calc Estimated GFR Random Glucose (60-115) mg/dL Calcium (8.4-10.2) mg/dL Magnesium (1.6-2.6) mg/dL Total Bilirubin (0.0-1.0) mg/dL Direct Bilirubin (0.0-0.5) mg/dL AST (5-31) U/L ALT (0-31) U/L Alkaline Phosphatase (39-117) U/L Troponin I High Sens (<3.5-17.0) ng/L B-Natriuretic Peptide (<100) pg/mL Total Protein (6.5-8.0) g/dL Albumin (3.5-5.0) g/dL COVID-19 ([facility]) Negative (Negative) COVID-19 Clin Com See Note ECG Data Attestation: I personally reviewed and interpreted this ECG as follows: ECG interpretation date: 06/07/21 ECG interpretation time: 07:24 Interpretation: Rate: 82 Rhythm: NSR [place]: normal Normal P waves. Normal ASHLEY. Normal QRS complex. ST T wave : normal , no SUZANNA qTC: prolonged prior studies: no acute ischemia The study has been interpreted contemporaneously by me. . Discharge Plan Discharge Clinical Impression: Acute on chronic combined systolic and diastolic CHF (congestive heart failure) Prescriptions: No Action gabapentin 400 mg capsule 400 mg PO TID RF: 0 ipratropium-albuterol 0.5 mg-3 mg(2.5 mg base)/3 mL Solution For Nebulization 3 ml inhalation RQ4H WHILE AWAKE PRN (Reason: Shortness Of Breath/Wheezing) Qty: 1 RF: 0 insulin lispro [Humalog U-100 Insulin] 100 unit/mL Solution See Protocol unit subcut QIDACHS Qty: 1 RF: 0 torsemide 20 mg Tablet 20 mg PO BID@0830,1430 Qty: 60 RF: 0 fluoxetine 40 mg capsule 40 mg PO DAILY RF: 0 metoprolol succinate 50 mg tablet extended release 24 hr 50 mg PO DAILY RF: 0 aspirin 81 mg tablet,delayed release (DR/EC) 81 mg PO DAILY RF: 0 simvastatin 20 mg tablet 20 mg PO BEDTIME RF: 0 omeprazole 20 mg capsule,delayed release(DR/EC) 20 mg PO BEDTIME RF: 0 albuterol sulfate [ProAir HFA] 90 mcg/actuation HFA aerosol inhaler 2 puff inhalation Q4H PRN (Reason: Dyspnea) RF: 0 Flovent HFA 110 mcg/actuation HFA aerosol inhaler 2 puff inhalation BID RF: 0 tizanidine 4 mg Tablet 4 mg PO BEDTIME RF: 0 isosorbide mononitrate 30 mg Tablet Extended Release 24 Hr 30 mg PO DAILY RF: 0 pregabalin [Lyrica] 100 mg Capsule 100 mg PO BID Qty: 10 RF: 0 Lantus U-100 Insulin 100 unit/mL solution subcut RF: 0 bumetanide 2 mg tablet 1 tab PO DAILY RF: 0 amlodipine 10 mg tablet 1 tab PO DAILY RF: 0 furosemide 20 mg tablet 1 tab PO TID RF: 0 nystatin 100,000 unit/gram powder topical RF: 0 cholecalciferol (vitamin D3) 25 mcg (1,000 unit) capsule 1 cap PO DAILY RF: 0
[2021-06-07 07:25] LABS: MANUAL DIFF FLAG NO
[2021-06-07 07:30] LABS: Basophils Percent Auto 0.1 % (0-2); Eosinophils Absolute Auto 0.1 X10*3/uL (0.0-0.4); Eosinophils Percent Auto 1.6 % (0-4); Hematocrit 35.1 % (37.0-47.0); Hemoglobin 10.3 g/dl (12.0-16.0); Imm Gran Abs Auto 0.03 X10*3/uL (0.00-0.03); Imm Gran Pct Auto 0.4 % (0.0-0.4); Lymphocytes Absolute Auto 1.1 X10*3/uL (1.2-4.9); Mean Corpuscular HGB Conc 29.3 g/dl (31.0-35.0); Mean Corpuscular Hemoglobin 25.2 pg (27.0-33.0); Mean Corpuscular Volume 85.8 fL (80.0-98.0); Mean Platelet Volume 9.5 fL (9.4-12.3); Monocytes Absolute Auto 0.7 X10*3/uL (0.1-1.2); Monocytes Percent Auto 9.7 % (2-11); Neutrophils Absolute Auto 5.7 x10*3/uL (2.0-8.3); Neutrophils Percent Auto 74.2 % (45-73); Platelet Count 179 X10*3/uL (160-400); Red Blood Count 4.09 X10*6/uL (4.20-5.50); Red Cell Distribution Width 18.3 % (11.0-16.0); White Blood Count 7.6 X10*3/uL (4.8-10.8)
[2021-06-07 07:41] LABS: COVID-19 Test Negative (Negative)
[2021-06-07 07:43] LABS: Alanine Aminotransferase 11 U/L (0-31); Albumin Level 3.7 g/dL (3.5-5.0); Alkaline Phosphatase 88 U/L (39-117); Anion Gap 14 (12-20); Aspartate Amino Transferase 14 U/L (5-31); Bilirubin Direct 0.2 mg/dL (0.0-0.5); Bilirubin Total 0.5 mg/dL (0.0-1.0); Blood Urea Nitrogen 32 mg/dL (9-16); Calcium 8.6 mg/dL (8.4-10.2); Carbon Dioxide 32 mmol/L (22-29); Chloride 102 mmol/L (96-108); Creatinine Clr Calc Pharmacy 51.4; Estimated Glomerular Filt Rate 34; Glucose Random 231 mg/dL (60-115); Magnesium 2.2 mg/dL (1.6-2.6); Potassium 4.9 mmol/L (3.3-5.1); Sodium 143 mmol/L (135-145); Total Protein 6.7 g/dL (6.5-8.0)
[2021-06-07 07:46] LABS: B Type Natriuretic Peptide 213 pg/mL (<100)
[2021-06-07] MEDS: Albuterol Sulfate (0.083%) 2.5 MG/3 ML VIAL.NEB INHALE (08:08)
[2021-06-07] MEDS: Bumetanide 1 MG/4 ML VIAL IVPUSH (09:31)
--- NOTE | 2021-06-07 10:25 | PHA.MEDREC ---
Pharmacy Consult ? Medication Reconciliation Pharmacy has completed the medication reconciliation. There were discrepancies between patient fill history and medicaiton list sent from nurse. I contact patient's nurse Mckinley, for clarification. He reported lyrica was discontinued. The list sent said isorobide dinitrate but he reported that was atypo and she is on isosorbide mononitrate. Lastly, there were discrepanices on diuertic. Fill history had lasix and bumex however his list had torsemide. He reported there was insurance issues, and the list was no update. Patient is only on bumex. Gisella Roque, PharmD
--- NOTE | 2021-06-07 14:23 | MHC.CM.ED ---
Received case management consult from Dr Cassidy. Patient came to ER due to CHF exacerbation. Patient is active with [facility] and is well-known by [facility]. Patient is active with [facility]. Patient has been to [facility] in the past. Patient has not received any Covid vaccines. Patient weights 311lbs. Physical therapy eval completed. Short term rehab is recommended. [facility] does not have a bed available at this time. Patient will be difficult to place due to not being vaccinated. Referral broadcasted within 20 miles of patient's home. Continue to monitor for d/c needs.
--- NOTE | 2021-06-07 15:59 | MHC.CM.ED ---
Met with patient at bedside. Patient verbalized understanding that bed offer has not been obtained yet and that she may have to stay in the ER overnight. Emile RN has been asked to get a hospital bed for patient. Continue to monitor for d/c needs.
[2021-06-07] MEDS: Gabapentin 400 MG CAPSULE PO (16:58)
[2021-06-07 17:04] LABS: Glucose, Whole Blood 281 mg/dL (60-115)
[2021-06-07 19:30] LABS: Glucose, Whole Blood 293 mg/dL (60-115)
[2021-06-07] MEDS: Insulin Lispro 100 UNIT/ML 3 ML VIAL SUBCUT ×2 (19:36→22:22)
[2021-06-07] MEDS: Atorvastatin Calcium 10 MG TABLET PO (21:13)
[2021-06-07] MEDS: Omeprazole 20 MG CAPSULE.DR PO (21:13)
[2021-06-07] MEDS: TiZANidine HCL 4 MG TABLET PO (21:13)
[2021-06-07] MEDS: Gabapentin 400 MG CAPSULE 800 MG PO (21:13)
[2021-06-07 21:55] LABS: Glucose, Whole Blood 257 mg/dL (60-115)
[2021-06-07] MEDS: Insulin Glargine,Hum.rec.anlog 100 UNIT/ML 10 ML VIAL 80 UNIT SUBCUT (22:22)
--- NOTE | 2021-06-07 22:25 | PC.NURSE ---
PT medicated per MAR. Resting comfortably in bed. Is currently on bed mei waiting for BM to occur. PT has no other complaints at this time.
[2021-06-08] VITALS (10 sets, daily range): BP systolic 108–152; BP diastolic 44–77; PULSE 72–100; RESP 16–18; TEMP 36.2–37.3; O2SAT 92–99
[2021-06-08 01:43] LABS: Glucose, Whole Blood 183 mg/dL (60-115)
--- NOTE | 2021-06-08 02:27 | PC.NURSE ---
PT rang call lopez to be put on bed mei. As this RN walked into the room PT stated that she was already having a BM in bed. PT found to have large loose BM. PT was then cleaned and linens changed. PT VSS at this time. PT is currently resting comfortably in bed.
[2021-06-08 07:16] LABS: Glucose, Whole Blood 172 mg/dL (60-115)
[2021-06-08] MEDS: Insulin Lispro 100 UNIT/ML 3 ML VIAL SUBCUT ×4 (07:49→22:06)
[2021-06-08] MEDS: Cholecalciferol (Vitamin D3) 25 MCG TABLET PO (07:50)
[2021-06-08] MEDS: Aspirin Enteric Coated 81 MG TABLET.DR PO (07:51)
[2021-06-08] MEDS: Metoprolol Succinate ER 50 MG TAB.ER.24H PO (07:55)
[2021-06-08] MEDS: Gabapentin 400 MG CAPSULE PO ×4 (07:56→20:38)
[2021-06-08] MEDS: FLUoxetine HCl 20 MG CAPSULE 40 MG PO (07:56)
[2021-06-08] MEDS: Isosorbide Mononitrate 30 MG TAB.ER.24H PO (07:56)
[2021-06-08] MEDS: Bumetanide 1 MG TABLET 2 MG PO (07:57)
[2021-06-08] MEDS: amLODIPine Besylate 10 MG TABLET PO (07:57)
--- NOTE | 2021-06-08 08:08 | PC.NURSE ---
pt alert and oriented, vss. pt given breakfast, meds given as documented. pt denies pain, no sob, no headache/dizziness. O2 sat 95% on 2L n/c. no complaints. pt awaiting acceptance to LTC. will continue to monitor.
[2021-06-08 12:09] LABS: Glucose, Whole Blood 172 mg/dL (60-115)
--- NOTE | 2021-06-08 16:46 | PC.NURSE ---
PATIENT WAS INC OF LARGE AMOUNT OF STOOL ,PATIENT WAS CLEAN AND REPOSITION
[2021-06-08 17:27] LABS: Glucose, Whole Blood 173 mg/dL (60-115)
[2021-06-08] MEDS: Atorvastatin Calcium 10 MG TABLET PO (20:34)
[2021-06-08] MEDS: Insulin Glargine,Hum.rec.anlog 100 UNIT/ML 10 ML VIAL 80 UNIT SUBCUT (20:36)
[2021-06-08] MEDS: Omeprazole 20 MG CAPSULE.DR PO (20:37)
[2021-06-08] MEDS: TiZANidine HCL 4 MG TABLET PO (20:37)
[2021-06-08] MEDS: Gabapentin 400 MG CAPSULE 800 MG PO (20:40)
[2021-06-08 21:07] LABS: Glucose, Whole Blood 234 mg/dL (60-115)
--- NOTE | 2021-06-08 22:00 | PC.NURSE ---
PT C/O WHY AM I NOT GETTING MY LYRICA [facility] NOTIFIED AND EXPLAINED LYRICA AND GABAPENTIN IN THE SAME FAMILY AND NOT ADVISED TO GIVE BOTH MEDS. PT AWARE AND UPSET REGARDING MEDS. PT REFUSING THE PURWICK AT THIS TIME AND STATES ILL TELL YOU WHEN IM READY FOR IT PT APPEARING UPSET AND WANTING TO SPEAK WITH CHARGE NURSE. [place], CHARGE IN ROOM SPEAKING WITH PT.
--- NOTE | 2021-06-08 22:13 | PC.NURSE ---
PATIENT HAS BEEN VERY RUDE TO STAFF.
--- NOTE | 2021-06-08 22:18 | PC.NURSE ---
PATIENT DOES NOT RING CALL [facility] FOR BATHROOM USE ,PATIENT RINGS CALL [facility] AFTER BED IS SOILED .
--- NOTE | 2021-06-08 23:08 | PC.NURSE ---
PT IS ANGRY AND BEING RUDE TO STAFF AND UNCOOPERATIVE AT THIS TIME. G NURSE AWARE.
[2021-06-09] VITALS (10 sets, daily range): BP systolic 114–165; BP diastolic 45–78; PULSE 49–96; RESP 16–22; TEMP 36.4–38.7; O2SAT 93–98
--- NOTE | 2021-06-09 02:57 | PC.NURSE ---
upon answer call lopez, pt is refusing the purwick to be placed at this time. Pt denies complaints, respirations n/l. skin w/d. pt awaiting bed placement.
--- NOTE | 2021-06-09 04:47 | PC.NURSE ---
pt sleeping in hospital bed, wakes to voice and denies any complaints at this time. awaiting bed placement.
--- NOTE | 2021-06-09 05:24 | PC.NURSE ---
call john answered. pt had a soak filled diaper on which pt put on herself. pt educated on not to wear depends d/t possible skin breakdown. pt verbalized agreement. pt cleaned up and pt accepted wear purwick. VS obtained. pt given 2 cups of ice water and pt denies any other complaints at this time. pt states im unable to ambulate d/t my swollen ankles pt verbalized i wear 2L NC at home . pt remains on 2L nc with PO of 95%. Pt denies CP or SOB during the night.
[2021-06-09 07:22] LABS: Glucose, Whole Blood 174 mg/dL (60-115)
[2021-06-09] MEDS: Bumetanide 1 MG TABLET 2 MG PO (07:46)
[2021-06-09] MEDS: Isosorbide Mononitrate 30 MG TAB.ER.24H PO (07:46)
[2021-06-09] MEDS: amLODIPine Besylate 10 MG TABLET PO (07:46)
[2021-06-09] MEDS: Insulin Lispro 100 UNIT/ML 3 ML VIAL SUBCUT ×4 (07:47→21:26)
[2021-06-09] MEDS: Aspirin Enteric Coated 81 MG TABLET.DR PO (07:48)
[2021-06-09] MEDS: Cholecalciferol (Vitamin D3) 25 MCG TABLET PO (07:48)
[2021-06-09] MEDS: Metoprolol Succinate ER 50 MG TAB.ER.24H PO (07:48)
[2021-06-09] MEDS: FLUoxetine HCl 20 MG CAPSULE 40 MG PO (07:48)
[2021-06-09] MEDS: Gabapentin 400 MG CAPSULE PO ×2 (08:00→12:07)
[2021-06-09] MEDS: Fluticasone Propionate 100 MCG BLST.W.DEV 2 PUFF INHALE ×2 (08:43→21:26)
--- NOTE | 2021-06-09 08:53 | PC.NURSE ---
Pt is aleret/oriented. States b/l leg pain and pain to left upper thigh. Medicated with AM meds as documented and 2 units of Insulin coverage per SSI. Pt o phone with daughter who reports ptis supposed to take Lyrica in addition to Gabapentin, sent picture of medication fill history, Tray BUTCHER aware. Pt noted with swelling to b/l legs.
--- NOTE | 2021-06-09 10:23 | PC.NURSE ---
Tray BUTCHER made aware of temp, new orders recieved
[2021-06-09 11:15] LABS: Appearance Urine CLEAR; Color Urine YELLOW; Glucose Urine UA NEG (NEG); Leukocyte Esterase Urine NEG (NEG); Nitrite Urine NEG (NEG); Specific Gravity - Urine 1.025 (1.005-1.025); UACC Culture Trigger NO; Urine Blood NEG (NEG); Urine Ketones NEG (NEG); Urine Protein 1+ MG/DL (NEG-TRACE)
[2021-06-09 11:30] LABS: Influenza A PCR NEGATIVE (Negative); Influenza B PCR NEGATIVE (Negative); Resp Syncy Virus RNA Qual PCR NEGATIVE (Negative); SARS COV2 PCR INHOUSE NEGATIVE (Negative)
[2021-06-09 11:35] LABS: Amorphous Sediment Urine TRACE /LPF; RBC Urine 0 /HPF (0); Squamous Epithelial Cell Urine 1+ /LPF; WBC Urine 0-2 /HPF (0-4)
--- NOTE | 2021-06-09 12:40 | PC.NURSE ---
patient medicated per order
[2021-06-09 14:09] LABS: Glucose, Whole Blood 206 mg/dL (60-115)
--- NOTE | 2021-06-09 14:15 | PC.NURSE ---
pt a&ox3, vitals obtained, pt continues to have temp- notified provider- no new orders given at this time, pt poc obtained and pt medicated per order and given her lunch, will continue to monitor.
[2021-06-09 17:06] LABS: MANUAL DIFF FLAG NO
[2021-06-09 17:07] LABS: Basophils Percent Auto 0.2 % (0-2); Eosinophils Percent Auto 0.3 % (0-4); Hematocrit 34.1 % (37.0-47.0); Hemoglobin 10.2 g/dl (12.0-16.0); Imm Gran Abs Auto 0.04 X10*3/uL (0.00-0.03); Imm Gran Pct Auto 0.3 % (0.0-0.4); Lymphocytes Absolute Auto 1.1 X10*3/uL (1.2-4.9); Lymphocytes Percent Auto 9.2 % (20-40); Mean Corpuscular HGB Conc 29.9 g/dl (31.0-35.0); Mean Corpuscular Hemoglobin 25.1 pg (27.0-33.0); Mean Platelet Volume 9.8 fL (9.4-12.3); Monocytes Absolute Auto 1.4 X10*3/uL (0.1-1.2); Monocytes Percent Auto 11.7 % (2-11); Neutrophils Absolute Auto 9.2 x10*3/uL (2.0-8.3); Neutrophils Percent Auto 78.3 % (45-73); Platelet Count 151 X10*3/uL (160-400); Red Blood Count 4.06 X10*6/uL (4.20-5.50); White Blood Count 11.8 X10*3/uL (4.8-10.8)
[2021-06-09 17:29] LABS: Anion Gap 13 (12-20); Blood Urea Nitrogen 33 mg/dL (9-16); Carbon Dioxide 31 mmol/L (22-29); Chloride 99 mmol/L (96-108); Creatinine Clr Calc Pharmacy 44.7; Estimated Glomerular Filt Rate 29; Glucose Random 230 mg/dL (60-115); Potassium 4.4 mmol/L (3.3-5.1); Sodium 139 mmol/L (135-145)
[2021-06-09 18:47] LABS: Glucose, Whole Blood 199 mg/dL (60-115)
[2021-06-09] MEDS: Pregabalin 100 MG CAPSULE PO (19:22)
--- NOTE | 2021-06-09 19:24 | PC.NURSE ---
patient medicated with lyrica early as patient was in 10/10 pain and has been without this medication being ordered.
[2021-06-09 21:19] LABS: Glucose, Whole Blood 209 mg/dL (60-115)
[2021-06-09] MEDS: TiZANidine HCL 4 MG TABLET PO (21:25)
[2021-06-09] MEDS: Gabapentin 400 MG CAPSULE 800 MG PO (21:25)
[2021-06-09] MEDS: Omeprazole 20 MG CAPSULE.DR PO (21:25)
[2021-06-09] MEDS: Atorvastatin Calcium 10 MG TABLET PO (21:25)
[2021-06-09] MEDS: Insulin Glargine,Hum.rec.anlog 100 UNIT/ML 10 ML VIAL 80 UNIT SUBCUT (21:26)
--- NOTE | 2021-06-09 21:32 | PC.NURSE ---
patient a&ox3, vss, pt continues to have low grade fever, pt medicated per order, pt c/o BLE pain- has gotten lyrica and gabapentin for her pain, call lopez within reach, will continue to monitor.
--- NOTE | 2021-06-09 21:35 | PC.NURSE ---
pure wick in place and draining
[2021-06-10] VITALS (10 sets, daily range): BP systolic 96–140; BP diastolic 37–68; PULSE 75–96; RESP 18–22; TEMP 36.4–38.9; O2SAT 90–94
--- NOTE | 2021-06-10 06:57 | PC.NURSE ---
no seizure activity thur the night. urine 800cc yellow. sat on 2l nc temp 102. orders from dr hernandez.
[2021-06-10 07:16] LABS: Glucose, Whole Blood 117 mg/dL (60-115)
[2021-06-10] MEDS: Metoprolol Succinate ER 50 MG TAB.ER.24H PO (07:50)
[2021-06-10] MEDS: Pregabalin 100 MG CAPSULE PO ×2 (07:50→21:31)
[2021-06-10] MEDS: amLODIPine Besylate 10 MG TABLET PO (07:50)
[2021-06-10] MEDS: Gabapentin 400 MG CAPSULE PO ×2 (07:51→11:17)
[2021-06-10] MEDS: Bumetanide 1 MG TABLET 2 MG PO (07:51)
[2021-06-10] MEDS: Isosorbide Mononitrate 30 MG TAB.ER.24H PO (07:51)
[2021-06-10] MEDS: FLUoxetine HCl 20 MG CAPSULE 40 MG PO (07:52)
[2021-06-10] MEDS: Aspirin Enteric Coated 81 MG TABLET.DR PO (07:52)
[2021-06-10] MEDS: Cholecalciferol (Vitamin D3) 25 MCG TABLET PO (07:53)
[2021-06-10 08:09] LABS: Lactic Acid 1.3 mmol/L (0.5-2.0)
[2021-06-10 08:12] LABS: Alanine Aminotransferase 10 U/L (0-31); Albumin Level 3.5 g/dL (3.5-5.0); Alkaline Phosphatase 74 U/L (39-117); Anion Gap 15 (12-20); Aspartate Amino Transferase 11 U/L (5-31); Bilirubin Direct 0.3 mg/dL (0.0-0.5); Bilirubin Total 0.6 mg/dL (0.0-1.0); Blood Urea Nitrogen 37 mg/dL (9-16); Calcium 7.9 mg/dL (8.4-10.2); Carbon Dioxide 31 mmol/L (22-29); Chloride 99 mmol/L (96-108); Creatinine Clr Calc Pharmacy 45.5; Estimated Glomerular Filt Rate 30; Glucose Random 145 mg/dL (60-115); Potassium 4.4 mmol/L (3.3-5.1); Sodium 141 mmol/L (135-145); Total Protein 6.5 g/dL (6.5-8.0)
[2021-06-10] MEDS: cefEPime HCl 2 GM in 0.9 % Sodium Chloride 50 ML IV (08:23)
--- NOTE | 2021-06-10 08:48 | MHC.CM.ED ---
Addendum entered by Petra Rios 06/10/21 13:03: [facility] is able to offer a bed tomorrow, 06/11. Original Note: Patient remains in ER. T/W reached out to [facility] to see if there a bed available for patient. Continue to monitor for d/c needs.
[2021-06-10 11:30] LABS: MANUAL DIFF FLAG NO
[2021-06-10 11:33] LABS: Basophils Percent Auto 0.1 % (0-2); Eosinophils Percent Auto 0.3 % (0-4); Hematocrit 31.9 % (37.0-47.0); Hemoglobin 9.4 g/dl (12.0-16.0); Imm Gran Abs Auto 0.05 X10*3/uL (0.00-0.03); Imm Gran Pct Auto 0.4 % (0.0-0.4); Lymphocytes Absolute Auto 1.2 X10*3/uL (1.2-4.9); Lymphocytes Percent Auto 10.2 % (20-40); Mean Corpuscular HGB Conc 29.5 g/dl (31.0-35.0); Mean Corpuscular Hemoglobin 25.1 pg (27.0-33.0); Mean Corpuscular Volume 85.3 fL (80.0-98.0); Mean Platelet Volume 9.7 fL (9.4-12.3); Monocytes Absolute Auto 1.3 X10*3/uL (0.1-1.2); Monocytes Percent Auto 10.8 % (2-11); Neutrophils Absolute Auto 9.2 x10*3/uL (2.0-8.3); Neutrophils Percent Auto 78.2 % (45-73); Platelet Count 156 X10*3/uL (160-400); Red Blood Count 3.74 X10*6/uL (4.20-5.50); Red Cell Distribution Width 18.1 % (11.0-16.0); White Blood Count 11.7 X10*3/uL (4.8-10.8)
[2021-06-10 12:52] LABS: Glucose, Whole Blood 168 mg/dL (60-115)
--- NOTE | 2021-06-10 13:19 | P.HPHOSP_ITS ---
History of Present Illness Date of Service: 06/10/21 <Johana Francis NP - Last Filed: 06/10/21 17:33> Attending physician on admission: Flakito Kraus <Johana Francis NP - Last Filed: 06/10/21 17:33> Chief Complaint: Fever <Johana Francis NP - Last Filed: 06/10/21 17:33> 61 year old women presenting with fever. She had been in the ED for several days pending SNF placement however her fever persisted. She had multiple imaging studies, all negative, therefore at this time there is no confirmed source of infection. She has fever, mild WBC. She denied chest pain, shortness of breath, nausea, vomiting, diarrhea. She has no open sores or wounds, although she has some mild redness to her right breast She was given a dose of cefepime in the ED and she will be admitted for possible fever secondary to breast cellulitis. <Johana Francis NP - Last Filed: 06/10/21 17:33> Review of Systems Review of Systems: Denies any recent fever chills or decrease in appetite respiratory denies any shortness of breath coverage production cardiovascular denied chest pain gastrointestinal denies any dysphagia abdominal pain nausea vomiting or diarrhea genitourinary denies any dysuria frequency or hematuria musculoskeletal denies any joint pain or swelling neuropsych denies any weakness or seizures all other systems reviewed are negative <Johana Francis NP - Last Filed: 06/10/21 17:33> [facility] Medical History: Medical History Acute on chronic combined systolic and diastolic CHF (congestive heart failure) Asthma Chronic pain CKD (chronic kidney disease) stage 3, GFR 30-59 ml/min Congestive heart failure Depression Diabetes Diabetic neuropathy, painful High cholesterol Hypertension Morbid obesity NICM (nonischemic cardiomyopathy) Obesity hypoventilation syndrome DANIEL (obstructive sleep apnea) <Johana Francis NP - Last Filed: 06/10/21 17:33> Pertinent family history: No hx of CHF <Johana Francis NP - Last Filed: 06/10/21 17:33> Surgical History: Surgical History Hx of cholecystectomy <Johana Francis NP - Last Filed: 06/10/21 17:33> Social History: Social History Household Members: None Household Members Other:: [employer] Housing[place] Apartment [place] Do you presently have visiting nurse or other home services: Yes Alcohol intake: never Patient Tobacco Use Status: Former Tobacco user Tobacco use type: Cigarette Years Smoked: 38 Second Hand Smoke Exposure: No Substance Use Type: Marijuana Advance Directives Date on File: 12/19/20 service: No Current occupational status: disabled <Johana Francis NP - Last Filed: 06/10/21 17:33> Meds Allergies/Adverse reactions: Allergies Allergy/AdvReac Type Severity Reaction Status Date / Time acetaminophen [Tylenol] AdvReac Unknown vommiting, Verified 06/10/21 16:42 itching, hives ibuprofen AdvReac Unknown vommiting, Verified 05/01/21 00:24 itching morphine AdvReac Unknown vomiting Verified 05/01/21 00:24 Motrin Allergy Unknown itching Uncoded 05/01/21 00:24 <Johana Francis NP - Last Filed: 06/10/21 17:33> Active Medications: Current Medications Albuterol Sulfate (Albuterol Sulfate 90 Mcg 8 Gm Inhaler) 2 puff INHALE Q4H PRN PRN Reason: Dyspnea Albuterol/Ipratropium (Albuterol/Iprat 2.5/0.5mg 3 Ml Ampul.Neb) 3 ml INHALE RQ4H WHILE AWAKE PRN PRN Reason: Shortness Of Breath/Wheezing Amlodipine Besylate (Amlodipine Besylate 10 Mg Tablet) 10 mg PO DAILY [facility]; Protocol Last Admin: 06/10/21 07:50 Dose: 10 mg Documented by: Aspirin (Aspirin Enteric Coated 81 Mg Tablet.) 81 mg PO DAILY [facility] Last Admin: 06/10/21 07:52 Dose: 81 mg Documented by: Atorvastatin Calcium (Atorvastatin Calcium 10 Mg Tablet) 10 mg PO BEDTIME HI Last Admin: 06/09/21 21:25 Dose: 10 mg Documented by: Bumetanide (Bumetanide 1 Mg Tablet) 2 mg PO DAILY [facility]; Protocol Last Admin: 06/10/21 07:51 Dose: 2 mg Documented by: Fluoxetine HCl (Fluoxetine Hcl 20 Mg Capsule) 40 mg PO DAILY [facility] Last Admin: 06/10/21 07:52 Dose: 40 mg Documented by: Fluticasone Propionate (Fluticasone Propionate 100 Mcg Blst.W.Dev) 2 puff INHALE RBID [facility] Last Admin: 06/10/21 07:05 Dose: Not Given Documented by: Gabapentin (Gabapentin 400 Mg Capsule) 800 mg PO BEDTIME [facility] Last Admin: 06/09/21 21:25 Dose: 800 mg Documented by: Gabapentin (Gabapentin 400 Mg Capsule) 400 mg PO BID@0900,1200 [facility] Last Admin: 06/10/21 11:17 Dose: 400 mg Documented by: Insulin Glargine (Insulin Glargine,Hum.Rec.Anlog 100 Unit/Ml 10 Ml Vial) 80 u nit SUBCUT BEDTIME [facility] Last Admin: 06/09/21 21:26 Dose: 80 unit Documented by: Insulin Human Lispro (Insulin Lispro 100 Unit/Ml 3 Ml Vial) 0 unit SUBCUT QIDACHS [facility]; Protocol Last Admin: 06/10/21 07:09 Dose: Not Given Documented by: Isosorbide Mononitrate (Isosorbide Mononitrate 30 Mg Tab.Er.24h) 30 mg PO DAILY [facility]; Protocol Last Admin: 06/10/21 07:51 Dose: 30 mg Documented by: Loperamide HCl (Loperamide Hcl 2 Mg Capsule) 2 mg PO Q4H PRN PRN Reason: Diarrhea Meclizine HCl (Meclizine Hcl 25 Mg Tablet) 25 mg PO TID PRN PRN Reason: Dizziness Metoprolol Succinate (Metoprolol Succinate Er 50 Mg Tab.Er.24h) 50 mg PO DAILY [facility]; Protocol Last Admin: 06/10/21 07:50 Dose: 50 mg Documented by: Omeprazole (Omeprazole 20 Mg Capsule.Dr) 20 mg PO BEDTIME [facility] Last Admin: 06/09/21 21:25 Dose: 20 mg Documented by: Pharmacy Consult (Consult Rx Perform Med Rec) 1 each MISCELLANE ONCE PRN PRN Reason: Consult order Pregabalin (Pregabalin 100 Mg Capsule) 100 mg PO BID [facility] Last Admin: 06/10/21 07:50 Dose: 100 mg Documented by: Tizanidine HCl (Tizanidine Hcl 4 Mg Tablet) 4 mg PO BEDTIME [facility] Last Admin: 06/09/21 21:25 Dose: 4 mg Documented by: Vitamin D (Cholecalciferol (Vitamin D3) 25 Mcg Tablet) 25 mcg PO DAILY HI Last Admin: 06/10/21 07:53 Dose: 25 mcg Documented by: <Johana Francis NP - Last Filed: 06/10/21 17:33> Home medications: Home Medications Medication Instructions Recorded Confirmed Last Taken Type albuterol sulfate 90 mcg/actuation 2 puff INHALATION Q4H PRN 11/23/20 06/07/21 1 Day Ago History aerosol inhaler (ProAir HFA) ~03/31/21 aspirin 81 mg tablet,delayed 81 mg PO DAILY 11/23/20 06/07/21 1 Day Ago History release ~03/31/21 fluoxetine 40 mg capsule 40 mg PO DAILY 11/23/20 06/07/21 1 Day Ago History ~03/31/21 fluticasone propionate 110 2 puff INHALATION BID 11/23/20 06/07/21 1 Day Ago History mcg/actuation HFA aerosol inhaler ~03/31/21 (Flovent HFA) metoprolol succinate 50 mg 50 mg PO DAILY 11/23/20 06/07/21 1 Day Ago History tablet,extended release 24 hr ~03/31/21 omeprazole 20 mg capsule,delayed 20 mg PO BEDTIME 11/23/20 06/07/21 1 Day Ago History release ~03/31/21 simvastatin 20 mg tablet 20 mg PO BEDTIME 11/23/20 06/07/21 1 Day Ago History ~03/31/21 isosorbide mononitrate 30 mg 30 mg PO DAILY 12/11/20 06/07/21 1 Day Ago History tablet,extended release 24 hr ~03/31/21 tizanidine 4 mg tablet 4 mg PO BEDTIME 12/11/20 06/07/21 1 Day Ago History ~03/31/21 gabapentin 400 mg capsule 400 mg PO BID@0900,1200 01/09/21 06/07/21 1 Day Ago History ~03/31/21 amlodipine 10 mg tablet 1 tab PO DAILY 06/07/21 06/07/21 Unknown History bumetanide 2 mg tablet 1 tab PO DAILY 06/07/21 06/07/21 Unknown History cholecalciferol (vitamin D3) 25 1 cap PO DAILY 06/07/21 06/07/21 Unknown History mcg (1,000 unit) capsule gabapentin 400 mg capsule 800 mg PO BEDTIME 06/07/21 06/07/21 Unknown History insulin glargine 100 unit/mL 80 unit SUBCUT BEDTIME 06/07/21 06/07/21 Unknown History subcutaneous solution (Lantus U-100 Insulin) loperamide 2 mg tablet 2 mg PO Q4H PRN 06/07/21 06/07/21 Unknown History meclizine 25 mg tablet 25 mg PO TID PRN 06/07/21 06/07/21 Unknown History pregabalin 100 mg capsule 1 cap PO BID 06/08/21 06/08/21 Unknown History <Johana Francis NP - Last Filed: 06/10/21 17:33> Physical Exam Vital Signs and Narrative: Vital Signs: Last Vital Signs Temp 100.4 F 06/10/21 11:19 Pulse 75 06/10/21 11:12 Resp 22 H 06/10/21 06:33 BP 118/46 L 06/10/21 11:12 Pulse Ox 93 06/10/21 11:12 Oxygen Flow Rate 2 06/07/21 06:41 Body Mass Index 60.9 <Johana Francis NP - Last Filed: 06/10/21 17:33> Appearing in no acute distress head is normocephalic atraumatic eyes pupils are PERRLA sclera is anicteric mouth throat mucous membranes are intact and moist neck is supple no lymphadenopathy, no JVD noted lung sounds are clear to auscultation heart regular rate rhythm, clear S1, S2 positive bowel sounds, abdomen is soft, nontender neuro patient is alert x3, no focal deficits <Johana Francis NP - Last Filed: 06/10/21 17:33> Results Labs CBC and Chem 7: : 06/14/21 05:30 06/14/21 05:30 <Johana Francis NP - Last Filed: 06/10/21 17:33> Labs: Laboratory Results - last 24 hr 06/09/21 06/09/21 06/09/21 14:06 16:58 16:58 MCV 84.0 MCH 25.1 L MCHC 29.9 L RDW 18.0 H Plt Count 151 L MPV 9.8 Immature Gran % (Auto) 0.3 Neut % (Auto) 78.3 H Lymph % (Auto) 9.2 L [place] % (Auto) 11.7 H Eos % (Auto) 0.3 Baso % (Auto) 0.2 Lymph # (Auto) 1.1 L [place] # (Auto) 1.4 H Eos # (Auto) 0.0 Baso # (Auto) 0.0 Abs Immat Gran (auto) 0.04 H Absolute Neuts (auto) 9.2 H Absolute Nucleated RBC 0.000 Nucleated RBC % (auto) 0.0 Anion Gap 13 Estim Creat Clear Calc 44.7 Estimated GFR 29 POC Glucose 206 H Random Glucose 230 H Lactic Acid Calcium 8.0 L D Total Bilirubin Direct Bilirubin AST ALT Alkaline Phosphatase Total Protein Albumin 06/09/21 06/09/21 06/10/21 18:43 21:15 07:09 MCV MCH MCHC RDW Plt Count MPV Immature Gran % (Auto) Neut % (Auto) Lymph % (Auto) [place] % (Auto) Eos % (Auto) Baso % (Auto) Lymph # (Auto) [place] # (Auto) Eos # (Auto) Baso # (Auto) Abs Immat Gran (auto) Absolute Neuts (auto) Absolute Nucleated RBC Nucleated RBC % (auto) Anion Gap Estim Creat Clear Calc Estimated GFR POC Glucose 199 H 209 H 117 H Random Glucose Lactic Acid Calcium Total Bilirubin Direct Bilirubin AST ALT Alkaline Phosphatase Total Protein Albumin 06/10/21 06/10/21 06/10/21 07:45 07:46 11:27 MCV 85.3 MCH 25.1 L MCHC 29.5 L RDW 18.1 H Plt Count 156 L MPV 9.7 Immature Gran % (Auto) 0.4 Neut % (Auto) 78.2 H Lymph % (Auto) 10.2 L [place] % (Auto) 10.8 Eos % (Auto) 0.3 Baso % (Auto) 0.1 Lymph # (Auto) 1.2 [place] # (Auto) 1.3 H Eos # (Auto) 0.0 Baso # (Auto) 0.0 Abs Immat Gran (auto) 0.05 H Absolute Neuts (auto) 9.2 H Absolute Nucleated RBC 0.000 Nucleated RBC % (auto) 0.0 Anion Gap 15 Estim Creat Clear Calc 45.5 Estimated GFR 30 POC Glucose Random Glucose 145 H Lactic Acid 1.3 Calcium 7.9 L Total Bilirubin 0.6 Direct Bilirubin 0.3 AST 11 ALT 10 Alkaline Phosphatase 74 Total Protein 6.5 Albumin 3.5 06/10/21 12:48 MCV MCH MCHC RDW Plt Count MPV Immature Gran % (Auto) Neut % (Auto) Lymph % (Auto) [place] % (Auto) Eos % (Auto) Baso % (Auto) Lymph # (Auto) [place] # (Auto) Eos # (Auto) Baso # (Auto) Abs Immat Gran (auto) Absolute Neuts (auto) Absolute Nucleated RBC Nucleated RBC % (auto) Anion Gap Estim Creat Clear Calc Estimated GFR POC Glucose 168 H Random Glucose Lactic Acid Calcium Total Bilirubin Direct Bilirubin AST ALT Alkaline Phosphatase Total Protein Albumin <Johana Francis NP - Last Filed: 06/10/21 17:33> Imaging Radiologist's Impressions: Impressions Chest X-Ray 06/09/21 13:31 IMPRESSION: No evidence of focal consolidation. Chest CT 06/10/21 06:43 IMPRESSION: No acute pneumonic process. There is bilateral bibasilar and right upper lobe plate atelectasis. 4 nonspecific subpleural nodule right lower lobe. Consider follow-up in one year. Fleischner guidelines were followed. Abdomen/Pelvis CT 06/10/21 11:22 IMPRESSION: No acute intra-abdominal process seen. Scattered colonic diverticulosis without diverticulitis. There is no radiopaque renal calculi or hydronephrosis. Fleischner guidelines were followed. <Johana Francis NP - Last Filed: 06/10/21 17:33> Assessment and Plan (1) Fever: Qualifiers: Fever type: unspecified Qualified Code(s): R50.9 - Fever, unspecified <Johana Francis NP - Last Filed: 06/10/21 17:33> Status: Acute <Johana Francis NP - Last Filed: 06/10/21 17:33> (2) DANIEL (obstructive sleep apnea): Status: Acute <Johana Francis NP - Last Filed: 06/10/21 17:33> (3) COPD (chronic obstructive pulmonary disease): Status: Acute <Johana Francis NP - Last Filed: 06/10/21 17:33> (4) Morbid obesity: Status: Acute <Johana Francis NP - Last Filed: 06/10/21 17:33> 61 year old women admitted with fever, had been in the ED on hold for placement however, fever was not responding Fever. Unknown source CXR, abd CT, u/a negative blood cx pending ID consult CKD. Stable Normocytic anemia no bleeding follow HH COPD no exacerbation Diabetes sliding scale ADA diet DANIEL cpap Attending Dr. Kraus Full code <Johana Francis NP - Last Filed: 06/10/21 17:33> Quality Stroke Does the patient have a stroke diagnosis?: No <Johana Francis NP - Last Filed: 06/10/21 17:33> VTE Prior VTE?: No <Johana Francis NP - Last Filed: 06/10/21 17:33> VTE Risk Level:: Medical - moderate - high <Johana Francis NP - Last Filed: 06/10/21 17:33> VTE Device Contraindication: Treatment Not Indicated <Johana Francis NP - Last Filed: 06/10/21 17: 33> VTE Drug Contraindication: N/A - Med Ordered <Johana Francis NP - Last Filed: 06/10/21 17:33>
[2021-06-10] MEDS: oxyCODONE HCl Immed Release 5 MG TABLET PO (14:57)
[2021-06-10] MEDS: Insulin Lispro 100 UNIT/ML 3 ML VIAL SUBCUT ×2 (14:58→21:33)
[2021-06-10] MEDS: Ondansetron ODT 4 MG TAB.RAPDIS TRANSLINGU (14:58)
[2021-06-10] MEDS: Enoxaparin Sodium 40 MG/0.4 ML SYRINGE SUBCUT (15:41)
[2021-06-10] MEDS: 0.9 % Sodium Chloride Flush 3 ML SYRINGE IVFLUSH ×2 (15:42→21:34)
--- NOTE | 2021-06-10 16:18 | PC.NURSE ---
pt reported needing to have BM - placed on bed mei without results.
--- NOTE | 2021-06-10 16:37 | PC.NURSE ---
spoke with Johana BUTCHER and MD Kraus r/t pts allergy to tylenol and ibuprofen, advised to monitor for high temps and as necessary give cool towels.
[2021-06-10 16:44] LABS: COVID-19 Test Negative (Negative); IDNOW Serial# 9DD0AD1C
--- NOTE | 2021-06-10 17:07 | P.EN_ITS ---
Event Note Date of Service: 06/19/21 Event Note: Patient came to the hospital initially was treated for CHF exacerb ation mild with IV Bumex 1 dose and subsequently patient was subsequently has on and off fever Workup flower UA, chest CT shows atelactasis, abdominal CT seems negative Has some erythema in the right breast area so admission was recommended For breast cellulitis. UA negative Denies any new complaint of chest pain or shortness of breath or abdominal pain or fever or chills or nausea or vomiting Denies any cough Denies any headache or blurry vision or any weakness or numbness or neck pain. Says have body aches. Lab imaging reviewed: Has mild leukocytosis fevers last 99.9*f, no tachycardia currently-last hr 77 no lactic acidosis blood cultures sent. Physical exam: Appearance: Alert.? Oriented X3.? not in distress.? Eyes: Pupils equal, round and reactive to light.? Sclera nonicteric.? ENT: Pharynx normal.? Moist mucous membranes. cvs: rrr, [id number] , no murmur res: clear to auscultation ,no rhonchii or wheezing abd: no rebound or guarding ,nt, bs present. ext pulses present , no cyanosis ,no edema , all extremity points generalized weak neuro: axo3 , nonfocal. Assessment and plan: Could needed in H&P. Patient probably has fever of unknown origin, possible cellulitis of the breast vs attelactsis Will get breast ultrasound, incentive spirometry, chest physio. , nebs Continue cefepime follow-up blood cultures Id evaluation
[2021-06-10 17:25] LABS: Adenovirus PCR Not Detected (Not Detect.); Bordetella parapertussis PCR Not Detected (Not Detect.); Bordetella pertussis PCR Not Detected (Not Detect.); Chlamydia pneumoniae PCR Not Detected (Not Detect.); Coronavirus 229E PCR Not Detected (Not Detect.); Coronavirus HKU1 PCR Not Detected (Not Detect.); Coronavirus NL63 PCR Not Detected (Not Detect.); Coronavirus OC43 PCR Not Detected (Not Detect.); Human metapneumovirus PCR Not Detected (Not Detect.); Influenza A PCR Not Detected (Not Detect.); Influenza B PCR Not Detected (Not Detect.); Mycoplasma pneumoniae PCR Not Detected (Not Detect.); Parainfluenza 1 PCR Not Detected (Not Detect.); Parainfluenza 2 PCR Not Detected (Not Detect.); Parainfluenza 3 PCR Not Detected (Not Detect.); Parainfluenza 4 PCR Not Detected (Not Detect.); RSV PCR Not Detected (Not Detect.); Rhino/Enterovirus PCR Not Detected (Not Detect.); SARS-CoV-2 PCR Not Detected (Not Detect.)
[2021-06-10 17:42] LABS: Glucose, Whole Blood 187 mg/dL (60-115)
[2021-06-10] MEDS: cefEPime HCl 1 GM in 0.9 % Sodium Chloride 50 ML IV (19:30)
[2021-06-10 20:54] LABS: Glucose, Whole Blood 264 mg/dL (60-115)
[2021-06-10] MEDS: Fluticasone Propionate 100 MCG BLST.W.DEV 2 PUFF INHALE (20:58)
[2021-06-10] MEDS: Gabapentin 400 MG CAPSULE 800 MG PO (21:31)
[2021-06-10] MEDS: Atorvastatin Calcium 10 MG TABLET PO (21:31)
[2021-06-10] MEDS: TiZANidine HCL 4 MG TABLET PO (21:31)
[2021-06-10] MEDS: Omeprazole 20 MG CAPSULE.DR PO (21:31)
[2021-06-10] MEDS: Insulin Glargine,Hum.rec.anlog 100 UNIT/ML 10 ML VIAL 80 UNIT SUBCUT (21:33)
[2021-06-11] VITALS (10 sets, daily range): BP systolic 101–125; BP diastolic 54–80; PULSE 70–90; RESP 16–20; TEMP 36–36.9; O2SAT 91–95
[2021-06-11] MEDS: oxyCODONE HCl Immed Release 5 MG TABLET PO ×3 (01:22→19:28)
[2021-06-11] MEDS: cefEPime HCl 1 GM in 0.9 % Sodium Chloride 50 ML IV ×3 (01:23→17:22)
[2021-06-11 06:15] LABS: MANUAL DIFF FLAG NO
[2021-06-11 06:20] LABS: Basophils Percent Auto 0.3 % (0-2); Eosinophils Absolute Auto 0.1 X10*3/uL (0.0-0.4); Eosinophils Percent Auto 1.2 % (0-4); Hematocrit 31.3 % (37.0-47.0); Hemoglobin 9.2 g/dl (12.0-16.0); Imm Gran Abs Auto 0.05 X10*3/uL (0.00-0.03); Imm Gran Pct Auto 0.5 % (0.0-0.4); Lymphocytes Absolute Auto 1.1 X10*3/uL (1.2-4.9); Mean Corpuscular HGB Conc 29.4 g/dl (31.0-35.0); Mean Corpuscular Hemoglobin 25.1 pg (27.0-33.0); Mean Corpuscular Volume 85.5 fL (80.0-98.0); Mean Platelet Volume 10.7 fL (9.4-12.3); Monocytes Absolute Auto 1.2 X10*3/uL (0.1-1.2); Monocytes Percent Auto 11.8 % (2-11); Neutrophils Absolute Auto 7.7 x10*3/uL (2.0-8.3); Neutrophils Percent Auto 75.2 % (45-73); Platelet Count 152 X10*3/uL (160-400); Red Blood Count 3.66 X10*6/uL (4.20-5.50); Red Cell Distribution Width 17.6 % (11.0-16.0); White Blood Count 10.2 X10*3/uL (4.8-10.8)
[2021-06-11 06:36] LABS: Anion Gap 18 (12-20); Blood Urea Nitrogen 56 mg/dL (9-16); Calcium 7.8 mg/dL (8.4-10.2); Carbon Dioxide 28 mmol/L (22-29); Chloride 99 mmol/L (96-108); Creatinine Clr Calc Pharmacy 30.8; Estimated Glomerular Filt Rate 19; Glucose Random 207 mg/dL (60-115); Potassium 4.8 mmol/L (3.3-5.1); Sodium 140 mmol/L (135-145)
[2021-06-11 07:44] LABS: Glucose, Whole Blood 201 mg/dL (60-115)
[2021-06-11] MEDS: Fluticasone Propionate 100 MCG BLST.W.DEV 2 PUFF INHALE ×2 (07:46→20:59)
[2021-06-11] MEDS: Insulin Lispro 100 UNIT/ML 3 ML VIAL SUBCUT ×4 (07:56→21:54)
[2021-06-11] MEDS: Isosorbide Mononitrate 30 MG TAB.ER.24H PO (07:57)
[2021-06-11] MEDS: 0.9 % Sodium Chloride Flush 3 ML SYRINGE IVFLUSH ×2 (07:57→14:48)
[2021-06-11] MEDS: FLUoxetine HCl 20 MG CAPSULE 40 MG PO (07:57)
[2021-06-11] MEDS: amLODIPine Besylate 10 MG TABLET PO (07:57)
[2021-06-11] MEDS: Pregabalin 100 MG CAPSULE PO ×2 (07:57→21:53)
[2021-06-11] MEDS: Cholecalciferol (Vitamin D3) 25 MCG TABLET PO (07:57)
[2021-06-11] MEDS: Gabapentin 400 MG CAPSULE PO ×2 (07:57→11:53)
[2021-06-11] MEDS: Aspirin Enteric Coated 81 MG TABLET.DR PO (07:58)
[2021-06-11] MEDS: Metoprolol Succinate ER 50 MG TAB.ER.24H PO (07:58)
--- NOTE | 2021-06-11 08:30 | P.CONGS_ITS ---
History of Present Illness Consult details Consult date: 06/11/21 Requesting physician: Johana Francis Narrative: 61-year-old female patient presenting with complaints of bilateral lower extremity swelling along with shortness of breath found to have an abscess in the lower right breast. She has a history of congestive heart failure reports the shortness of breath increasing when lying flat. Lower extremities have been draining ?water? from multiple sites especially in the left leg. She reports an area of pain in the right lower outer quadrant which she treated with warm compresses for several days approximately 1 week ago. She developed some purulent discharge for several days but this has subsequently resolved. She denies significant pain from the breast at this time but does feel a residual lump. The patient underwent evaluation with an ultrasound of the right breast. This revealed a skin abscess which does not extend beyond the dermis. Surgical consultation is requested for possible drainage procedure. She is currently on IV cefepime. She denies significant breast pain or discharge at this time. Review of Systems Review of Systems: Yes all other systems are reviewed and are negative Constitutional: Constitutional: Denies anorexia, Denies chills, Denies fever(s) and Denies night sweats Cardiovascular: Cardiovascular: Denies chest pain, Reports edema, Reports leg edema and Reports dyspnea Respiratory: Respiratory: Denies cough, Denies hemoptysis and Reports dyspnea Gastrointestinal: Gastrointestinal: Denies abdominal pain, Denies bloating, Denies diarrhea, Denies nausea and Denies vomiting Musculoskeletal: Musculoskeletal: Reports as per HPI Integumentary/Breasts: Skin/Breast: Reports as per HPI PMF Past Medical History Medical History Acute on chronic combined systolic and diastolic CHF (congestive heart failure) Asthma Chronic pain CKD (chronic kidney disease) stage 3, GFR 30-59 ml/min Congestive heart failure Depression Diabetes Diabetic neuropathy, painful High cholesterol Hypertension Morbid obesity NICM (nonischemic cardiomyopathy) Obesity hypoventilation syndrome DANIEL (obstructive sleep apnea) Surgical History Surgical History Hx of cholecystectomy Social History Social History Household Members: None Household Members Other:: GRANDSON Housing: Apartment Housing Other:: [facility] Do you presently have visiting nurse or other home services: Yes Alcohol intake: never Patient Tobacco Use Status: Former Tobacco user Tobacco use type: Cigarette Years Smoked: 38 Second Hand Smoke Exposure: No Use of substances other than those prescribed or required for medical reasons: No Substance Use Type: Marijuana Currently Displaying Signs/Symptoms of Drug Intoxication Withdrawal: No Have you been hit, kicked, punched, or otherwise hurt by someone within the past year? If so, by whom?: No Do you feel safe in your current relationship?: No Is there a partner from a previous relationship who is making you feel unsafe now?: No Are you made to feel afraid or neglected: No Advance Directives: Yes Advance Directives on File: Yes Advance Directives Date on File: 12/19/20 Do you have thoughts of harming others: None Do you have a plan to hurt others: No Plan Recently lost weight without trying: No Eating poorly because of decreased appetite: No service: No Current occupational status: disabled Meds Allergies Allergy/AdvReac Type Severity Reaction Status Date / Time acetaminophen [Tylenol] AdvReac Unknown vommiting, Verified 06/10/21 16:42 itching, hives ibuprofen AdvReac Unknown vommiting, Verified 05/01/21 00:24 itching morphine AdvReac Unknown vomiting Verified 05/01/21 00:24 Motrin Allergy Unknown itching Uncoded 05/01/21 00:24 Active Medications: Current Medications Acetaminophen (Acetaminophen 325 Mg Tablet) 650 mg PO Q4H PRN PRN Reason: Fever Albuterol Sulfate (Albuterol Sulfate 90 Mcg 8 Gm Inhaler) 2 puff INHALE Q4H PRN PRN Reason: Dyspnea Albuterol/Ipratropium (Albuterol/Iprat 2.5/0.5mg 3 Ml Ampul.Neb) 3 ml INHALE RQ4H WHILE AWAKE PRN PRN Reason: Shortness Of Breath/Wheezing Amlodipine Besylate (Amlodipine Besylate 10 Mg Tablet) 10 mg PO DAILY [facility]; Protocol Last Admin: 06/11/21 07:57 Dose: 10 mg Documented by: Aspirin (Aspirin Enteric Coated 81 Mg Tablet.) 81 mg PO DAILY [facility] Last Admin: 06/11/21 07:58 Dose: 81 mg Documented by: Atorvastatin Calcium (Atorvastatin Calcium 10 Mg Tablet) 10 mg PO BEDTIME [facility] Last Admin: 06/10/21 21:31 Dose: 10 mg Documented by: Bumetanide (Bumetanide 1 Mg Tablet) 2 mg PO DAILY [facility]; Protocol Last Admin: 06/10/21 07:51 Dose: 2 mg Documented by: Diphenhydramine HCl (Diphenhydramine Hcl 50 Mg/Ml Vial) 25 mg IVPUSH Q6H PRN PRN Reason: hives Enoxaparin Sodium (Enoxaparin Sodium 40 Mg/0.4 Ml Syringe) 40 mg SUBCUT Q24H [facility] Last Admin: 06/10/21 15:41 Dose: 40 mg Documented by: Fluoxetine HCl (Fluoxetine Hcl 20 Mg Capsule) 40 mg PO DAILY [facility] Last Admin: 06/11/21 07:57 Dose: 40 mg Documented by: Fluticasone Propionate (Fluticasone Propionate 100 Mcg Blst.W.Dev) 2 puff INHALE RBID [facility] Last Admin: 06/11/21 07:46 Dose: 2 puff Documented by: Gabapentin (Gabapentin 400 Mg Capsule) 800 mg PO BEDTIME [facility] Last Admin: 06/10/21 21:31 Dose: 800 mg Documented by: Gabapentin (Gabapentin 400 Mg Capsule) 400 mg PO BID@0900,1200 [facility] Last Admin: 06/11/21 07:57 Dose: 400 mg Documented by: Cefepime HCl 1 gm/ Sodium (Chloride) 50 mls @ 100 mls/hr IV Q8H [facility] Last Infusion: 06/11/21 02:16 Dose: Infused Documented by: Sodium Chloride (Ns) 1,000 mls @ 100 mls/hr IVCONT .Q10H [facility] Insulin Glargine (Insulin Glargine,Hum.Rec.Anlog 100 Unit/Ml 10 Ml Vial) 80 uni t SUBCUT BEDTIME [facility] Last Admin: 06/10/21 21:33 Dose: 80 unit Documented by: Insulin Human Lispro (Insulin Lispro 100 Unit/Ml 3 Ml Vial) 0 unit SUBCUT QIDACHS [facility]; Protocol Last Admin: 06/11/21 07:56 Dose: 4 unit Documented by: Isosorbide Mononitrate (Isosorbide Mononitrate 30 Mg Tab.Er.24h) 30 mg PO DAILY [facility]; Protocol Last Admin: 06/11/21 07:57 Dose: 30 mg Documented by: Loperamide HCl (Loperamide Hcl 2 Mg Capsule) 2 mg PO Q4H PRN PRN Reason: Diarrhea Meclizine HCl (Meclizine Hcl 25 Mg Tablet) 25 mg PO TID PRN PRN Reason: Dizziness Metoprolol Succinate (Metoprolol Succinate Er 50 Mg Tab.Er.24h) 50 mg PO DAILY [facility]; Protocol Last Admin: 06/11/21 07:58 Dose: 50 mg Documented by: Omeprazole (Omeprazole 20 Mg Capsule.) 20 mg PO BEDTIME [facility] Last Admin: 06/10/21 21:31 Dose: 20 mg Documented by: Pharmacy Consult (Consult Rx Perform Med Rec) 1 each MISCELLANE ONCE PRN PRN Reason: Consult order Pregabalin (Pregabalin 100 Mg Capsule) 100 mg PO BID [facility] Last Admin: 06/11/21 07:57 Dose: 100 mg Documented by: Sodium Chloride (0.9 % Sodium Chloride Flush 3 Ml Syringe) 3 ml IVFLUSH QSHIFT [facility] Last Admin: 06/11/21 07:57 Dose: 3 ml Documented by: Tizanidine HCl (Tizanidine Hcl 4 Mg Tablet) 4 mg PO BEDTIME [facility] Last Admin: 06/10/21 21:31 Dose: 4 mg Documented by: Vitamin D (Cholecalciferol (Vitamin D3) 25 Mcg Tablet) 25 mcg PO DAILY [facility] Last Admin: 06/11/21 07:57 Dose: 25 mcg Documented by: Home Medications Medication Instructions Recorded Confirmed Last Taken Type albuterol sulfate 90 mcg/actuation 2 puff INHALATION Q4H PRN 11/23/20 06/07/21 1 Day Ago History aerosol inhaler (ProAir HFA) ~03/31/21 aspirin 81 mg tablet,delayed 81 mg PO DAILY 11/23/20 06/07/21 1 Day Ago History release ~03/31/21 fluoxetine 40 mg capsule 40 mg PO DAILY 11/23/20 06/07/21 1 Day Ago History ~03/31/21 fluticasone propionate 110 2 puff INHALATION BID 11/23/20 06/07/21 1 Day Ago History mcg/actuation HFA aerosol inhaler ~03/31/21 (Flovent HFA) metoprolol succinate 50 mg 50 mg PO DAILY 11/23/20 06/07/21 1 Day Ago History tablet,extended release 24 hr ~03/31/21 omeprazole 20 mg capsule,delayed 20 mg PO BEDTIME 11/23/20 06/07/21 1 Day Ago History release ~03/31/21 simvastatin 20 mg tablet 20 mg PO BEDTIME 11/23/20 06/07/21 1 Day Ago History ~03/31/21 isosorbide mononitrate 30 mg 30 mg PO DAILY 12/11/20 06/07/21 1 Day Ago History tablet,extended release 24 hr ~03/31/21 tizanidine 4 mg tablet 4 mg PO BEDTIME 12/11/20 06/07/21 1 Day Ago History ~03/31/21 gabapentin 400 mg capsule 400 mg PO BID@0900,1200 01/09/21 06/07/21 1 Day Ago History ~03/31/21 amlodipine 10 mg tablet 1 tab PO DAILY 06/07/21 06/07/21 Unknown History bumetanide 2 mg tablet 1 tab PO DAILY 06/07/21 06/07/21 Unknown History cholecalciferol (vitamin D3) 25 1 cap PO DAILY 06/07/21 06/07/21 Unknown History mcg (1,000 unit) capsule gabapentin 400 mg capsule 800 mg PO BEDTIME 06/07/21 06/07/21 Unknown History insulin glargine 100 unit/mL 80 unit SUBCUT BEDTIME 06/07/21 06/07/21 Unknown History subcutaneous solution (Lantus U-100 Insulin) loperamide 2 mg tablet 2 mg PO Q4H PRN 06/07/21 06/07/21 Unknown History meclizine 25 mg tablet 25 mg PO TID PRN 06/07/21 06/07/21 Unknown History pregabalin 100 mg capsule 1 cap PO BID 06/08/21 06/08/21 Unknown History Physical Exam Vital Signs: Vital Signs: Last Vital Signs Temp 96.8 F 06/11/21 07:22 Pulse 76 06/11/21 07:58 Resp 19 06/11/21 07:22 BP 104/54 L 06/11/21 07:58 Pulse Ox 93 06/11/21 07:22 Oxygen Flow Rate 2 06/07/21 06:41 Body Mass Index 60.9 Const: General: cooperative and no acute distress Nutritional Appearance: obese Orientation/consciousness: patient oriented x3 Limitations: no limitations HENMT: Head: Yes normocephalic and Yes atraumatic Ears: hearing grossly normal bilaterally Chest: Other: Area of fluctuance noted in the right lower outer quadrant measuring approximately 3-4 cm in diameter with a bluish discoloration. There is no overlying erythema noted in the skin. There is no tenderness to palpation. Collection does seem to be intradermal. No deeper abscess could be identified. Chest/axillae images: 1. Site of collection. Resp: Other: Nasal O2, mild shortness of breath noted, no wheezing, no stridor GI: Other: Soft, nondistended, nontender. Skin: Other: Warm, dry, no rash Neuro: General: patient oriented x3 Extrem: Other: 1+ pedal edema, left leg with multiple skin abrasions, no discharge noted at this time. Results Labs Result diagrams: 06/11/21 05:43 06/11/21 05:43 Labs: Abnormal lab results 06/10/21 06/10/21 06/10/21 Range/Units 11:27 12:48 17:38 WBC 11.7 H (4.8-10.8) X10*3/uL RBC 3.74 L (4.20-5.50) X10*6/uL Hgb 9.4 L (12.0-16.0) g/dl Hct 31.9 L (37.0-47.0) % MCH 25.1 L (27.0-33.0) pg MCHC 29.5 L (31.0-35.0) g/dl RDW 18.1 H (11.0-16.0) % Plt Count 156 L (160-400) X10*3/uL Immature Gran % (Auto) (0.0-0.4) % Neut % (Auto) 78.2 H (45-73) % Lymph % (Auto) 10.2 L (20-40) % [place] % (Auto) (2-11) % Lymph # (Auto) (1.2-4.9) X10*3/uL [place] # (Auto) 1.3 H (0.1-1.2) X10*3/uL Abs Immat Gran (auto) 0.05 H (0.00-0.03) X10*3/uL Absolute Neuts (auto) 9.2 H (2.0-8.3) x10*3/uL BUN (9-16) mg/dL Creatinine (0.5-1.4) mg/dL POC Glucose 168 H 187 H (60-115) mg/dL Random Glucose (60-115) mg/dL Calcium (8.4-10.2) mg/dL 06/10/21 06/11/21 06/11/21 Range/Units 20:50 05:43 05:43 WBC (4.8-10.8) X10*3/uL RBC 3.66 L (4.20-5.50) X10*6/uL Hgb 9.2 L (12.0-16.0) g/dl Hct 31.3 L (37.0-47.0) % MCH 25.1 L (27.0-33.0) pg MCHC 29.4 L (31.0-35.0) g/dl RDW 17.6 H (11.0-16.0) % Plt Count 152 L (160-400) X10*3/uL Immature Gran % (Auto) 0.5 H (0.0-0.4) % Neut % (Auto) 75.2 H (45-73) % Lymph % (Auto) 11.0 L (20-40) % [place] % (Auto) 11.8 H (2-11) % Lymph # (Auto) 1.1 L (1.2-4.9) X10*3/uL [place] # (Auto) (0.1-1.2) X10*3/uL Abs Immat Gran (auto) 0.05 H (0.00-0.03) X10*3/uL Absolute Neuts (auto) (2.0-8.3) x10*3/uL BUN 56 H D (9-16) mg/dL Creatinine 2.57 H (0.5-1.4) mg/dL POC Glucose 264 H (60-115) mg/dL Random Glucose 207 H (60-115) mg/dL Calcium 7.8 L (8.4-10.2) mg/dL 06/11/21 Range/Units 07:34 WBC (4.8-10.8) X10*3/uL RBC (4.20-5.50) X10*6/uL Hgb (12.0-16.0) g/dl Hct (37.0-47.0) % MCH (27.0-33.0) pg MCHC (31.0-35.0) g/dl RDW (11.0-16.0) % Plt Count (160-400) X10*3/uL Immature Gran % (Auto) (0.0-0.4) % Neut % (Auto) (45-73) % Lymph % (Auto) (20-40) % [place] % (Auto) (2-11) % Lymph # (Auto) (1.2-4.9) X10*3/uL [place] # (Auto) (0.1-1.2) X10*3/uL Abs Immat Gran (auto) (0.00-0.03) X10*3/uL Absolute Neuts (auto) (2.0-8.3) x10*3/uL BUN (9-16) mg/dL Creatinine (0.5-1.4) mg/dL POC Glucose 201 H (60-115) mg/dL Random Glucose (60-115) mg/dL Calcium (8.4-10.2) mg/dL Short CBC 06/10/21 06/11/21 Range/Units 11:27 05:43 WBC 11.7 H 10.2 (4.8-10.8) X10*3/uL Hgb 9.4 L 9.2 L (12.0-16.0) g/dl Hct 31.9 L 31.3 L (37.0-47.0) % Plt Count 156 L 152 L (160-400) X10*3/uL BMP 06/11/21 05:43 Sodium 140 Potassium 4.8 Chloride 99 Carbon Dioxide 28 BUN 56 H D Creatinine 2.57 H Calcium 7.8 L Urine 06/09/21 Range/Units 10:44 Urine Color YELLOW Urine Appearance CLEAR Urine pH 6.0 (5.0-8.0) Ur Specific [place] 1.025 (1.005-1.025) Urine Protein 1+ H (NEG-TRACE) MG/DL Urine Glucose (UA) NEG (NEG) MG/DL All other labs normal. Assessment and Plan (1) Abscess of right breast: Status: Acute 61-year-old female patient presenting with a cutaneous abscess the right breast of unknown etiology. The site drained spontaneously approximately 1 week ago and is now decreased in size and pain. There is no overlying erythema res idual collection is identified. Patient is currently on IV antibiotics. Ultrasound of the breast was reviewed and a thin collection identified this location. Overall the site appears to be a resolving abscess which should resorb over the next several days. Agree with the plan to repeat ultrasound after 4-5 days. No incision and drainage recommended at this time. Procedures Date of Service Date of Service: 06/11/21
--- NOTE | 2021-06-11 09:46 | PC.NURSE ---
Skin/wound assessment completed. patient has fungal rash under breasts and abdominal folds. Interdry applied under breasts and in abdominal folds. Redness to buttocks, barrier cream applied. No other skin issues noted at this time.
--- NOTE | 2021-06-11 10:09 | P.PNIM_ITS ---
Subjective Subjective Date of Service: 06/11/21 <Joahna Francis NP - Last Filed: 06/11/21 16:32> 06/15/21 <Guillermo Marina MD - Last Filed: 06/15/21 16:46> Review of Systems Follow up breast abscess chronic pain diffusely <Johana Francis NP - Last Filed: 06/11/21 16:32> Physical Exam Vital Signs: Vital Signs: Last Vital Signs Temp 96.8 F 06/11/21 07:22 Pulse 76 06/11/21 07:58 Resp 19 06/11/21 07:22 BP 104/54 L 06/11/21 07:58 Pulse Ox 93 06/11/21 07:22 Oxygen Flow Rate 2 06/07/21 06:41 Body Mass Index 60.9 <Johana Francis NP - Last Filed: 06/11/21 16:32> Appearing in no acute distress lung sounds are clear to auscultation heart regular rate rhythm, clear S1, S2 positive bowel sounds, abdomen is soft, nontender neuro patient is alert x3, no focal deficits Chronic leg swelling <Johana Francis NP - Last Filed: 06/11/21 16:32> Objective Data Active Medications Acetaminophen (Acetaminophen 325 Mg Tablet) 650 mg PO Q4H PRN PRN Reason: Fever Albuterol Sulfate (Albuterol Sulfate 90 Mcg 8 Gm Inhaler) 2 puff INHALE Q4H PRN PRN Reason: Dyspnea Albuterol/Ipratropium (Albuterol/Iprat 2.5/0.5mg 3 Ml Ampul.Neb) 3 ml INHALE R Q4H WHILE AWAKE PRN PRN Reason: Shortness Of Breath/Wheezing Amlodipine Besylate (Amlodipine Besylate 10 Mg Tablet) 10 mg PO DAILY [facility]; Protocol Last Admin: 06/11/21 07:57 Dose: 10 mg Documented by: COTEMA Aspirin (Aspirin Enteric Coated 81 Mg Tablet.) 81 mg PO DAILY [facility] Last Admin: 06/11/21 07:58 Dose: 81 mg Documented by: DELORIS Atorvastatin Calcium (Atorvastatin Calcium 10 Mg Tablet) 10 mg PO BEDTIME [facility] Last Admin: 06/10/21 21:31 Dose: 10 mg Documented by: ODRISM Bumetanide (Bumetanide 1 Mg Tablet) 2 mg PO DAILY [facility]; Protocol Last Admin: 06/10/21 07:51 Dose: 2 mg Documented by: PAPA Diphenhydramine HCl (Diphenhydramine Hcl 50 Mg/Ml Vial) 25 mg IVPUSH Q6H PRN PRN Reason: hives Enoxaparin Sodium (Enoxaparin Sodium 40 Mg/0.4 Ml Syringe) 40 mg SUBCUT Q24H [facility] Last Admin: 06/10/21 15:41 Dose: 40 mg Documented by: KOJO Fluoxetine HCl (Fluoxetine Hcl 20 Mg Capsule) 40 mg PO DAILY [facility] Last Admin: 06/11/21 07:57 Dose: 40 mg Documented by: DELORIS Fluticasone Propionate (Fluticasone Propionate 100 Mcg Blst.W.Dev) 2 puff INHALE RBID [facility] Last Admin: 06/11/21 07:46 Dose: 2 puff Documented by: DANIELA Gabapentin (Gabapentin 400 Mg Capsule) 800 mg PO BEDTIME [facility] Last Admin: 06/10/21 21:31 Dose: 800 mg Documented by: MIC Gabapentin (Gabapentin 400 Mg Capsule) 400 mg PO BID@0900,1200 [facility] Last Admin: 06/11/21 07:57 Dose: 400 mg Documented by: DELORIS Cefepime HCl 1 gm/ Sodium (Chloride) 50 mls @ 100 mls/hr IV Q8H [facility] Last Admin: 06/11/21 09:55 Dose: 100 mls/hr Documented by: DELORIS Sodium Chloride (Ns) 1,000 mls @ 100 mls/hr IVCONT .Q10H [facility] Last Admin: 06/11/21 09:50 Dose: Not Given Documented by: DELORIS Non-Admin Reason: Physician Held Med Insulin Glargine (Insulin Glargine,Hum.Rec.Anlog 100 Unit/Ml 10 Ml Vial) 80 unit SUBCUT BEDTIME [facility] Last Admin: 06/10/21 21:33 Dose: 80 unit Documented by: MIC Insulin Human Lispro (Insulin Lispro 100 Unit/Ml 3 Ml Vial) 0 unit SUBCUT QIDACHS [facility]; Protocol Last Admin: 06/11/21 07:56 Dose: 4 unit Documented by: DELORIS Isosorbide Mononitrate (Isosorbide Mononitrate 30 Mg Tab.Er.24h) 30 mg PO DAILY [facility]; Protocol Last Admin: 06/11/21 07:57 Dose: 30 mg Documented by: DELORIS Loperamide HCl (Loperamide Hcl 2 Mg Capsule) 2 mg PO Q4H PRN PRN Reason: Diarrhea Meclizine HCl (Meclizine Hcl 25 Mg Tablet) 25 mg PO TID PRN PRN Reason: Dizziness Metoprolol Succinate (Metoprolol Succinate Er 50 Mg Tab.Er.24h) 50 mg PO DAILY [facility]; Protocol Last Admin: 06/11/21 07:58 Dose: 50 mg Documented by: DELORIS Omeprazole (Omeprazole 20 Mg Capsule.Dr) 20 mg PO BEDTIME [facility] Last Admin: 06/10/21 21:31 Dose: 20 mg Documented by: GALIRISAkshat Oxycodone HCl (Oxycodone Hcl Immed Release 5 Mg Tablet) 5 mg PO Q6H PRN PRN Reason: pain Pharmacy Consult (Consult Rx Perform Med Rec) 1 each MISCELLANE ONCE PRN PRN Reason: Consult order Pregabalin (Pregabalin 100 Mg Capsule) 100 mg PO BID [facility] Last Admin: 06/11/21 07:57 Dose: 100 mg Documented by: DELORIS Sodium Chloride (0.9 % Sodium Chloride Flush 3 Ml Syringe) [facility] Last Admin: 06/11/21 07:57 Dose: 3 ml Documented by: DELORIS Tizanidine HCl (Tizanidine Hcl 4 Mg Tablet) 4 mg PO BEDTIME [facility] Last Admin: 06/10/21 21:31 Dose: 4 mg Documented by: MIC Vitamin D (Cholecalciferol (Vitamin D3) 25 Mcg Tablet) 25 mcg PO DAILY [facility] Last Admin: 06/11/21 07:57 Dose: 25 mcg Documented by: DELORIS <Johana Francis NP - Last Filed: 06/11/21 16:32> Labs CBC & Chem 7: : 06/14/21 05:30 06/14/21 05:30 <Johana Francis NP - Last Filed: 06/11/21 16:32> Labs: Laboratory Results - last 24 hr 06/10/21 06/10/21 06/10/21 11:27 12:48 16:11 MCV 85.3 MCH 25.1 L MCHC 29.5 L RDW 18.1 H Plt Count 156 L MPV 9.7 Immature Gran % (Auto) 0.4 Neut % (Auto) 78.2 H Lymph % (Auto) 10.2 L [place] % (Auto) 10.8 Eos % (Auto) 0.3 Baso % (Auto) 0.1 Lymph # (Auto) 1.2 [place] # (Auto) 1.3 H Eos # (Auto) 0.0 Baso # (Auto) 0.0 Abs Immat Gran (auto) 0.05 H Absolute Neuts (auto) 9.2 H Absolute Nucleated RBC 0.000 Nucleated RBC % (auto) 0.0 Anion Gap Estim Creat Clear Calc Estimated GFR POC Glucose 168 H Random Glucose Calcium Respiratory Panel [place] Adenovirus (Rapid PCR) B.pert (TEM-PCR) B.parapertussis DNA PCR C. pneumoniae DNA (PCR) Coronavirus OC43 (PCR) Coronavirus HKU1 (PCR) Coronavirus 229E (PCR) COVID-19 ([facility]) Negative COVID-19 Clin Com See Note Coronavirus NL63 (PCR) Human Metapneumovir PCR Influenza A (RT-PCR) Influenza B (RT-PCR) M. pneumoniae (PCR) Parainfluenza 1 (PCR) Parainfluenza 2 (PCR) Parainfluenza 3 (PCR) Parainfluenza 4 (PCR) RSV (PCR) Entero/Rhino (PCR) SARS-CoV-2 RNA (RT-PCR) 06/10/21 06/10/21 06/10/21 17:15 17:38 20:50 MCV MCH MCHC RDW Plt Count MPV Immature Gran % (Auto) Neut % (Auto) Lymph % (Auto) [place] % (Auto) Eos % (Auto) Baso % (Auto) Lymph # (Auto) [place] # (Auto) Eos # (Auto) Baso # (Auto) Abs Immat Gran (auto) Absolute Neuts (auto) Absolute Nucleated RBC Nucleated RBC % (auto) Anion Gap Estim Creat Clear Calc Estimated GFR POC Glucose 187 H 264 H Random Glucose Calcium Respiratory Panel [place] See Note Adenovirus (Rapid PCR) Not Detected B.pert (TEM-PCR) Not Detected B.parapertussis DNA PCR Not Detected C. pneumoniae DNA (PCR) Not Detected Coronavirus OC43 (PCR) Not Detected Coronavirus HKU1 (PCR) Not Detected Coronavirus 229E (PCR) Not Detected COVID-19 ([facility]) COVID-19 Clin Com Coronavirus NL63 (PCR) Not Detected Human Metapneumovir PCR Not Detected Influenza A (RT-PCR) Not Detected Influenza B (RT-PCR) Not Detected M. pneumoniae (PCR) Not Detected Parainfluenza 1 (PCR) Not Detected Parainfluenza 2 (PCR) Not Detected Parainfluenza 3 (PCR) Not Detected Parainfluenza 4 (PCR) Not Detected RSV (PCR) Not Detected Entero/Rhino (PCR) Not Detected SARS-CoV-2 RNA (RT-PCR) Not Detected 06/11/21 06/11/21 06/11/21 05:43 05:43 07:34 MCV 85.5 MCH 25.1 L MCHC 29.4 L RDW 17.6 H Plt Count 152 L MPV 10.7 Immature Gran % (Auto) 0.5 H Neut % (Auto) 75.2 H Lymph % (Auto) 11.0 L [place] % (Auto) 11.8 H Eos % (Auto) 1.2 Baso % (Auto) 0.3 Lymph # (Auto) 1.1 L [place] # (Auto) 1.2 Eos # (Auto) 0.1 Baso # (Auto) 0.0 Abs Immat Gran (auto) 0.05 H Absolute Neuts (auto) 7.7 Absolute Nucleated RBC 0.000 Nucleated RBC % (auto) 0.0 Anion Gap 18 Estim Creat Clear Calc 30.8 Estimated GFR 19 POC Glucose 201 H Random Glucose 207 H Calcium 7.8 L Respiratory Panel [place] Adenovirus (Rapid PCR) B.pert (TEM-PCR) B.parapertussis DNA PCR C. pneumoniae DNA (PCR) Coronavirus OC43 (PCR) Coronavirus HKU1 (PCR) Coronavirus 229E (PCR) COVID-19 ([facility]) COVID-19 Clin Com Coronavirus NL63 (PCR) Human Metapneumovir PCR Influenza A (RT-PCR) Influenza B (RT-PCR) M. pneumoniae (PCR) Parainfluenza 1 (PCR) Parainfluenza 2 (PCR) Parainfluenza 3 (PCR) Parainfluenza 4 (PCR) RSV (PCR) Entero/Rhino (PCR) SARS-CoV-2 RNA (RT-PCR) <Johana Francis NP - Last Filed: 06/11/21 16:32> Microbiology Microbiology Results: Microbiology 06/10/21 07:45 Blood Culture - Preliminary Blood - Venous No growth after 24 hours. 06/10/21 07:46 Blood Culture - Preliminary Blood - Venous No growth after 24 hours. <Johana Francis NP - Last Filed: 06/11/21 16:32> Assessment and Plan (1) Abscess of right breast: Status: Acute <Johana Francis NP - Last Filed: 06/11/21 16:32> (2) DANIEL (obstructive sleep apnea): Status: Acute <Johana Francis NP - Last Filed: 06/11/21 16:32> (3) Morbid obesity: Status: Acute <Johana Francis NP - Last Filed: 06/11/21 16:32> (4) COPD (chronic obstructive pulmonary disease): Status: Acute <Johana Francis NP - Last Filed: 06/11/21 16:32> Assessment and Plan: 61 year old women admitted with fever, had been in the ED on hold for placement however, fever was not responding Fever secondary to breast abscess. Resolved Seen and examined by General surgery no need to aspirate, continue current treatment repeat breast u/s in 4 days blood cx pending continue cefepime CKD. Stable Normocytic anemia no bleeding follow HH COPD no exacerbation Diabetes sliding scale ADA diet DANIEL cpap if needed Attending Dr. Sharma Full code? <Johana Francis NP - Last Filed: 06/11/21 16:32> 61 year old women admitted with fever, had been in the ED on hold for placement however, fever was not responding Fever secondary to breast abscess. Resolved Seen and examined by General surgery no need to aspirate, continue current treatment repeat breast u/s in 4 days blood cx pending continue cefepime CKD. Stable Normocytic anemia no bleeding follow HH COPD no exacerbation Diabetes sliding scale ADA diet DANIEL cpap if needed Attending Dr. Marina Full code? I saw and examined patient and discussed findings with midlevel provider and i agree with the above <Guillermo Marina MD - Last Filed: 06/15/21 16:46> Quality Stroke Does the patient have a stroke diagnosis?: No <Johana Francis NP - Last Filed: 06/11/21 16:32> VTE Prior VTE?: No <Johana Francis NP - Last Filed: 06/11/21 16:32> VTE Risk Level:: Medical - moderate - high <Johana Francis NP - Last Filed: 06/11/21 16:32> VTE Device Contraindication: Treatment Not Indicated <Johana Francis NP - Last Filed: 06/11/21 16:32> VTE Drug Contraindication: N/A - Med Ordered <Johana Francis NP - Last Filed: 06/11/21 16:32>
[2021-06-11 11:26] LABS: Glucose, Whole Blood 244 mg/dL (60-115)
--- NOTE | 2021-06-11 12:04 | P.CDIC_ITS ---
CDI Concurrent Query Documentation Clarification: PHYSICIAN'S DOCUMENTATION REQUEST Date of Query: 06/11/21 1205 Patient Name: Lupis Mueller Admit Date: 06/10/21 Dear Doctor, A review of the medical record indicates additional documentation may be needed. Please review below and update the documentation accordingly. Risk Factors/Clinical Indicators/Treatments ED: PMH - CKD Stage 3 Labs: 06/07 cr. 1.54 06/11 cr . 2.57 Bun 32 56 H GFR 34 19 Please clarify which of the following most accurately represents the patient's renal status: Chronic renal failure Stage 3 * Acute on Chronic kidney failure Stage 3 * Chronic stable CKD, Stage 3 * Other (please specify) * Unable to determine Criteria for FELICIA* Stages of Chronic Kidney Disease* 1. Increase in serum creatinine by ? 0.3 mg/dL Level Description GFR (?26.5 micromol/L) within 48 hours, or G1 Normal or High > 90 2. Increase in serum creatinine to ?1.5 times baseline, G2 Mildly decreased 60 ? 89 which is known or presumed to have occurred within 7 days, or G3a Mildly to moderately decreased 45 ? 59 3. Urine volume <0.5 mL/kg/hour for six hours G3b Moderately to severely decreased 30 - 44 G4 Severely decreased 15 ? 29 G5 Kidney failure < 15 *Source: Kidney Disease: Improving Global Outcomes (KDIGO) 2012 Use of terms such as suspected, likely, concern for, or probable (associated with a specific diagnosis that is being evaluated, monitored, or treated as if it exists) are acceptable and can be coded in the inpatient setting, when documented at the time of discharge. Thank you, Wendy Gorman [facility], CDIS Extension: [phone] Please use your independent medical judgment in providing your response. THIS QUERY IS PART OF THE PERMANENT MEDICAL RECORD Provider Response: CKD Stage 3 Other Diagnosis: CKD3
[2021-06-11] MEDS: Acetaminophen 325 MG TABLET 650 MG PO ×2 (13:14→19:29)
--- NOTE | 2021-06-11 13:40 | MHC.CM.PN ---
Addendum entered by Odalis Coats 06/11/21 13:49: [facility] WILL HAVE TO CHECK BED AVAILABILITY TOMORROW FOR AN OFFER AT [place]. Original Note: [facility] IS OFFER[facility]. FACILITY UPDATED IN [facility] IS DC TOMORROW
[2021-06-11] MEDS: Enoxaparin Sodium 40 MG/0.4 ML SYRINGE SUBCUT (14:48)
[2021-06-11 16:04] LABS: Glucose, Whole Blood 209 mg/dL (60-115)
[2021-06-11 20:25] LABS: Glucose, Whole Blood 220 mg/dL (60-115)
[2021-06-11] MEDS: Omeprazole 20 MG CAPSULE.DR PO (21:53)
[2021-06-11] MEDS: TiZANidine HCL 4 MG TABLET PO (21:53)
[2021-06-11] MEDS: Gabapentin 400 MG CAPSULE 800 MG PO (21:54)
[2021-06-11] MEDS: Insulin Glargine,Hum.rec.anlog 100 UNIT/ML 10 ML VIAL 80 UNIT SUBCUT (21:54)
[2021-06-11] MEDS: Atorvastatin Calcium 10 MG TABLET PO (21:54)
--- NOTE | 2021-06-11 21:58 | PM.EVENT ---
Event Note Date of Service: 06/11/21 Event Note: Pt seen and examined Chart Reviewed Full consult to follow 1. DUDLEY : Dudley due to Acute tubular injury in the setting of Sepsis _ Infection/ Low BP CHF .Obstruction ruled out Doubt AGN/ AIN given bland UA 2. CKD stage 3 at baseline in the setting of HTN/ DM 3. R breast cellulites 4. H/o CHF - Avoid Nephrotoxins - Bumex PO as ordered - Antibiotics as per medical team - F/U renal function - Will lower Amlodipine to 5 mg daily as BP is low -Check renal func in AM Thx Will follow
[2021-06-12] VITALS (10 sets, daily range): BP systolic 118–137; BP diastolic 51–79; PULSE 74–82; RESP 18–20; TEMP 36–36.5; O2SAT 63–94
[2021-06-12] MEDS: 0.9 % Sodium Chloride Flush 3 ML SYRINGE IVFLUSH ×3 (00:28→15:41)
[2021-06-12] MEDS: cefEPime HCl 1 GM in 0.9 % Sodium Chloride 50 ML IV ×3 (01:47→17:08)
[2021-06-12] MEDS: oxyCODONE HCl Immed Release 5 MG TABLET PO ×3 (02:06→15:40)
[2021-06-12] MEDS: Acetaminophen 325 MG TABLET 650 MG PO ×3 (02:06→15:40)
[2021-06-12 05:51] LABS: Hematocrit 31.3 % (37.0-47.0); Hemoglobin 9.3 g/dl (12.0-16.0); Mean Corpuscular HGB Conc 29.7 g/dl (31.0-35.0); Mean Corpuscular Hemoglobin 25.3 pg (27.0-33.0); Mean Corpuscular Volume 85.1 fL (80.0-98.0); Mean Platelet Volume 10.1 fL (9.4-12.3); Platelet Count 155 X10*3/uL (160-400); Red Blood Count 3.68 X10*6/uL (4.20-5.50); Red Cell Distribution Width 17.6 % (11.0-16.0); White Blood Count 8.3 X10*3/uL (4.8-10.8)
[2021-06-12 06:13] LABS: Anion Gap 19 (12-20); Calcium 8.1 mg/dL (8.4-10.2); Carbon Dioxide 26 mmol/L (22-29); Chloride 98 mmol/L (96-108); Creatinine Clr Calc Pharmacy 26.3; Estimated Glomerular Filt Rate 16; Glucose Random 249 mg/dL (60-115); Sodium 138 mmol/L (135-145)
[2021-06-12 06:18] LABS: Blood Urea Nitrogen 83 mg/dL (9-16)
--- NOTE | 2021-06-12 06:22 | PC.NURSE ---
Critical lab tiger text from Jesus Bernal- patient has a critical BUN-83.
[2021-06-12 07:58] LABS: Glucose, Whole Blood 237 mg/dL (60-115)
[2021-06-12] MEDS: Pregabalin 100 MG CAPSULE PO (08:18)
[2021-06-12] MEDS: Cholecalciferol (Vitamin D3) 25 MCG TABLET PO (08:18)
[2021-06-12] MEDS: Isosorbide Mononitrate 30 MG TAB.ER.24H PO (08:18)
[2021-06-12] MEDS: amLODIPine Besylate 5 MG TABLET PO (08:18)
[2021-06-12] MEDS: FLUoxetine HCl 20 MG CAPSULE 40 MG PO (08:18)
[2021-06-12] MEDS: Gabapentin 400 MG CAPSULE PO ×2 (08:18→12:07)
[2021-06-12] MEDS: Aspirin Enteric Coated 81 MG TABLET.DR PO (08:19)
[2021-06-12] MEDS: Insulin Lispro 100 UNIT/ML 3 ML VIAL SUBCUT ×4 (08:19→20:27)
[2021-06-12] MEDS: Metoprolol Succinate ER 50 MG TAB.ER.24H PO (08:19)
[2021-06-12 11:44] LABS: Glucose, Whole Blood 269 mg/dL (60-115)
--- NOTE | 2021-06-12 13:32 | PM.PNNEP ---
Subjective Subjective Date of Service: 06/12/21 Interval history: Pt c/o L Lower quadrant abd pain Physical Exam Vital Signs: Vital Signs: Last Vital Signs Temp 96.8 F 06/12/21 12:00 Pulse 81 06/12/21 12:00 Resp 19 06/12/21 12:00 BP 122/51 L 06/12/21 12:00 Pulse Ox 92 06/12/21 12:00 Oxygen Flow Rate 2 06/07/21 06:41 Body Mass Index 60.9 ?Appearing in no acute distress ?lung sounds are clear to auscultation ?heart regular rate rhythm, clear? S1, S2 ?positive bowel sounds, abdomen is soft, nontender ?neuro patient is alert x3, no focal deficits ?Chronic leg swelling Objective Data Labs CBC & Chem 7: 06/12/21 05:23 06/12/21 05:23 Labs: Laboratory Results - last 24 hr 06/11/21 06/11/21 06/12/21 15:43 19:51 05:23 WBC 8.3 RBC 3.68 L Hgb 9.3 L Hct 31.3 L MCV 85.1 MCH 25.3 L MCHC 29.7 L RDW 17.6 H Plt Count 155 L MPV 10.1 Absolute Nucleated RBC 0.000 Nucleated RBC % (auto) 0.0 Sodium Potassium Chloride Carbon Dioxide Anion Gap BUN Creatinine Estim Creat Clear Calc Estimated GFR POC Glucose 209 H 220 H Random Glucose Calcium 06/12/21 06/12/21 06/12/21 05:23 07:54 11:34 WBC RBC Hgb Hct MCV MCH MCHC RDW Plt Count MPV Absolute Nucleated RBC Nucleated RBC % (auto) Sodium 138 Potassium 5.0 Chloride 98 Carbon Dioxide 26 Anion Gap 19 BUN 83 H* D Creatinine 3.01 H Estim Creat Clear Calc 26.3 Estimated GFR 16 POC Glucose 237 H 269 H Random Glucose 249 H Calcium 8.1 L Microbiology Microbiology Results: Microbiology 06/10/21 07:46 Blood - Venous Blood Culture - Preliminary No growth after 48 hours. 06/10/21 07:45 Blood - Venous Blood Culture - Preliminary No growth after 48 hours. Procedures Date of Service Date of Service: 06/12/21 Assessment & Plan Assessment and plan (1) DUDLEY (acute kidney injury): Status: Acute (2) Abscess of right breast: Status: Acute Assessment and Plan: 1. DUDLEY : Dudley due to Acute tubular injury in the setting of Sepsis _ Infection/ Low BP? CHF .Obstruction ruled out Doubt AGN/ AIN given bland UA 2. CKD stage 3 at baseline in the setting of? HTN/ DM 3. R breast cellulites? 4. H/o CHF - Avoid Nephrotoxins - Bumex PO Placed on Hold - Lowered dose og Lytica and Gabapentin - IVF NS 2000 ml @ 100 ml/ hr ordered - Antibiotics as per medical team - F/U renal function - BP acceptable -Check renal func in AM Thx Will follow Time Spent With Patient Time: Total time spent is greater than 50% in coordination of care (as documented) at patient's floor/unit and/or counseling patient: Progress Note: Quality Stroke Does the patient have a stroke diagnosis?: No
--- NOTE | 2021-06-12 14:41 | P.PNIM_ITS ---
Subjective Subjective Date of Service: 06/12/21 Interval History: No acute events overnight. Uncomfortable after CT scan Review of Systems Denies chest pain Denies shortness of Denies nausea vomiting Physical Exam Vital Signs: Vital Signs: Last Vital Signs Temp 96.8 F 06/12/21 12:00 Pulse 81 06/12/21 12:00 Resp 19 06/12/21 12:00 BP 122/51 L 06/12/21 12:00 Pulse Ox 92 06/12/21 12:00 Oxygen Flow Rate 2 06/07/21 06:41 Body Mass Index 60.9 Const: Other: Awake alert no acute distress Resp: Other: Clear to auscultation bilaterally. No rales rhonchi wheezes Cardio: Other: No S4; positive S1-S2; no S3 murmurs rubs or gallops GI: Other: Soft nontender nondistended with normoactive bowel sounds. Extrem: Other: No edema Objective Data Active Medications Acetaminophen (Acetaminophen 325 Mg Tablet) 650 mg PO Q4H PRN PRN Reason: Fever Last Admin: 06/12/21 08:19 Dose: 650 mg Documented by: DELORIS Albuterol Sulfate (Albuterol Sulfate 90 Mcg 8 Gm Inhaler) 2 puff INHALE Q4H PRN PRN Reason: Dyspnea Albuterol/Ipratropium (Albuterol/Iprat 2.5/0.5mg 3 Ml Ampul.Neb) 3 ml INHALE RQ4H WHILE AWAKE PRN PRN Reason: Shortness Of Breath/Wheezing Amlodipine Besylate (Amlodipine Besylate 5 Mg Tablet) 5 mg PO DAILY [facility]; Protocol Last Admin: 06/12/21 08:18 Dose: 5 mg Documented by: DELORIS Aspirin (Aspirin Enteric Coated 81 Mg Tablet.) 81 mg PO DAILY [facility] Last Admin: 06/12/21 08:19 Dose: 81 mg Documented by: DELORIS Atorvastatin Calcium (Atorvastatin Calcium 10 Mg Tablet) 10 mg PO BEDTIME [facility] Last Admin: 06/11/21 21:54 Dose: 10 mg Documented by: DANETTE Bumetanide (Bumetanide 1 Mg Tablet) 2 mg PO DAILY [facility]; Protocol Last Admin: 06/10/21 07:51 Dose: 2 mg Documented by: PAPA Diphenhydramine HCl (Diphenhydramine Hcl 50 Mg/Ml Vial) 25 mg IVPUSH Q6H PRN PRN Reason: hives Enoxaparin Sodium (Enoxaparin Sodium 40 Mg/0.4 Ml Syringe) 40 mg SUBCUT Q24H [facility] Last Admin: 06/11/21 14:48 Dose: 40 mg Documented by: COTEMA Fluoxetine HCl (Fluoxetine Hcl 20 Mg Capsule) 40 mg PO DAILY [facility] Last Admin: 06/12/21 08:18 Dose: 40 mg Documented by: JOHANNEEMA Fluticasone Propionate (Fluticasone Propionate 100 Mcg Blst.W.Dev) 2 puff INHALE RBID [facility] Last Admin: 06/12/21 07:51 Dose: Not Given Documented by: ULRICC Non-Admin Reason: refused. Throat hurts too much Gabapentin (Gabapentin 400 Mg Capsule) 400 mg PO BID@0900,1200 [facility] Last Admin: 06/12/21 12:07 Dose: 400 mg Documented by: DELORIS Cefepime HCl 1 gm/ Sodium (Chloride) 50 mls @ 100 mls/hr IV Q8H [facility] Last Infusion: 06/12/21 08:57 Dose: 0 mls/hr Documented by: DELORIS Sodium Chloride (Ns) 1,000 mls @ 100 mls/hr IVCONT .Q10H [facility] Stop: 06/13/21 09:44 Insulin Glargine (Insulin Glargine,Hum.Rec.Anlog 100 Unit/Ml 10 Ml Vial) 80 unit SUBCUT BEDTIME [facility] Last Admin: 06/11/21 21:54 Dose: 80 unit Documented by: DANETTE Insulin Human Lispro (Insulin Lispro 100 Unit/Ml 3 Ml Vial) 0 unit SUBCUT QIDACHS [facility]; Protocol Last Admin: 06/12/21 12:07 Dose: 6 unit Documented by: JOHANNEEMA Isosorbide Mononitrate (Isosorbide Mononitrate 30 Mg Tab.Er.24h) 30 mg PO DAILY [facility]; Protocol Last Admin: 06/12/21 08:18 Dose: 30 mg Documented by: DELORIS Loperamide HCl (Loperamide Hcl 2 Mg Capsule) 2 mg PO Q4H PRN PRN Reason: Diarrhea Meclizine HCl (Meclizine Hcl 25 Mg Tablet) 25 mg PO TID PRN PRN Reason: Dizziness Metoprolol Succinate (Metoprolol Succinate Er 50 Mg Tab.Er.24h) 50 mg PO DAILY [facility]; Protocol Last Admin: 06/12/21 08:19 Dose: 50 mg Documented by: DLEORIS Omeprazole (Omeprazole 20 Mg Capsule.Dr) 20 mg PO BEDTIME [facility] Last Admin: 06/11/21 21:53 Dose: 20 mg Documented by: DANETTE Oxycodone HCl (Oxycodone Hcl Immed Release 5 Mg Tablet) 5 mg PO Q6H PRN PRN Reason: pain Last Admin: 06/12/21 08:19 Dose: 5 mg Documented by: DELORIS Pharmacy Consult (Consult Rx Perform Med Rec) 1 each MISCELLANE ONCE PRN PRN Reason: Consult order Pregabalin (Pregabalin 100 Mg Capsule) 100 mg PO DAILY [facility] Sodium Chloride (0.9 % Sodium Chloride Flush 3 Ml Syringe) 3 ml IVFLUSH QSHIFT [facility] Last Admin: 06/12/21 08:20 Dose: 3 ml Documented by: DELORIS Tizanidine HCl (Tizanidine Hcl 4 Mg Tablet) 4 mg PO BEDTIME [facility] Last Admin: 06/11/21 21:53 Dose: 4 mg Documented by: DANETTE Vitamin D (Cholecalciferol (Vitamin D3) 25 Mcg Tablet) 25 mcg PO DAILY [facility] Last Admin: 06/12/21 08:18 Dose: 25 mcg Documented by: DELORIS Labs CBC & Chem 7: 06/12/21 05:23 06/12/21 05:23 Labs: Laboratory Results - last 24 hr 06/11/21 06/11/21 06/12/21 15:43 19:51 05:23 MCV 85.1 MCH 25.3 L MCHC 29.7 L RDW 17.6 H Plt Count 155 L MPV 10.1 Absolute Nucleated RBC 0.000 Nucleated RBC % (auto) 0.0 Anion Gap Estim Creat Clear Calc Estimated GFR POC Glucose 209 H 220 H Random Glucose Calcium 06/12/21 06/12/21 06/12/21 05:23 07:54 11:34 MCV MCH MCHC RDW Plt Count MPV Absolute Nucleated RBC Nucleated RBC % (auto) Anion Gap 19 Estim Creat Clear Calc 26.3 Estimated GFR 16 POC Glucose 237 H 269 H Random Glucose 249 H Calcium 8.1 L Microbiology Microbiology Results: Microbiology 06/10/21 07:46 Blood Culture - Preliminary Blood - Venous No growth after 48 hours. 06/10/21 07:45 Blood Culture - Preliminary Blood - Venous No growth after 48 hours. Assessment and Plan (1) Abscess of right breast: Status: Acute (2) FELICIA (acute kidney injury): Status: Acute (3) Morbid obesity: Status: Acute Assessment and Plan: 61 year old women presented to ER with fever. She had been on ED hold for several days waiting SNF placement however fever persisted. Multiple imaging studies failed to demonstrate a source for her infection however she had a mild leukocytosis with some mild redness to her right breast. Consult placed to surgery who felt that there was no drainable abscess and that she should be admitted for IV antibiotics and follow her white count. 1. Cutaneous abscess right breast Continue cefepime as ordered. Follow white count and repeat ultrasound at the 4-5 day dionna. 2.CKD. Creatinine increased from 2.57-3.01 Seen by Nephrology; recommend DC IV diuresis and treat with gentle IV volume replacement Follow creatinine daily 3. Type 2 diabetes Continue sliding scale as ordered and adjust as indicated. Continue diabetic diet. 4.Full code Lovenox? Quality Stroke Does the patient have a stroke diagnosis?: No VTE Prior VTE?: No VTE Risk Level:: Medical - moderate - high VTE Device Contraindication: Treatment Not Indicated VTE Drug Contraindication: N/A - Med Ordered
--- NOTE | 2021-06-12 15:30 | MHC.CM.PN ---
WITH ASSIST OF LINUX ADMIN, CASE MANAGEMENT ASSESSMENT PERFORMED PATIENT LIVES ALONE. SHE USES A CANE AND A WALKER. SHE NO LONGER HAS [facility] SERVICES BUT IS HOPING FOR SOME AT TIME OF DISCHARGE. 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 [employer] MAY PROVIDE TRANSPORTATION HOME. HCP IS ON FILE AND VERIFIED. ACCORDING TO SURGEON (IN ROOM), PATIENT WILL NEED A FEW MORE DAYS OF IV ABX. POSSIBLE RETURN HOME THIS WEEKEND. IMM 06/12 IN CHART
[2021-06-12] MEDS: Enoxaparin Sodium 40 MG/0.4 ML SYRINGE SUBCUT (15:40)
[2021-06-12] MEDS: 0.9 % Sodium Chloride 1,000 ML 100 ML IVCONT (15:46)
[2021-06-12 16:56] LABS: Glucose, Whole Blood 192 mg/dL (60-115)
[2021-06-12] MEDS: Fluticasone Propionate 100 MCG BLST.W.DEV 2 PUFF INHALE (19:52)
[2021-06-12 20:13] LABS: Glucose, Whole Blood 216 mg/dL (60-115)
[2021-06-12] MEDS: TiZANidine HCL 4 MG TABLET PO (20:26)
[2021-06-12] MEDS: Omeprazole 20 MG CAPSULE.DR PO (20:26)
[2021-06-12] MEDS: Insulin Glargine,Hum.rec.anlog 100 UNIT/ML 10 ML VIAL 80 UNIT SUBCUT (20:27)
[2021-06-12] MEDS: Atorvastatin Calcium 10 MG TABLET PO (20:27)
[2021-06-13] MEDS: 0.9 % Sodium Chloride 1,000 ML 100 ML IVCONT (01:26)
[2021-06-13] MEDS: cefEPime HCl 1 GM in 0.9 % Sodium Chloride 50 ML IV ×3 (01:43→18:04)
[2021-06-13 04:00] VITALS: BP 134/95; PULSE 93; RESP 20; TEMP 36.6; O2SAT 92
[2021-06-13 07:05] LABS: INTERNATIONAL NORM RATIO 1.1 (0.9-1.1)
[2021-06-13 07:08] LABS: Partial Thromboplastin Time 54.5 SEC (24.1-38.0)
[2021-06-13 07:28] VITALS: BP 140/77; PULSE 92; RESP 19; TEMP 36.9; O2SAT 91
[2021-06-13] MEDS: Aspirin Enteric Coated 81 MG TABLET.DR PO (08:06)
[2021-06-13] MEDS: Pregabalin 100 MG CAPSULE PO (08:07)
[2021-06-13] MEDS: Cholecalciferol (Vitamin D3) 25 MCG TABLET PO (08:07)
[2021-06-13] MEDS: Gabapentin 400 MG CAPSULE PO ×2 (08:07→12:29)
[2021-06-13] MEDS: Isosorbide Mononitrate 30 MG TAB.ER.24H PO (08:08)
[2021-06-13] MEDS: FLUoxetine HCl 20 MG CAPSULE 40 MG PO (08:09)
[2021-06-13] MEDS: amLODIPine Besylate 5 MG TABLET PO (08:09)
[2021-06-13] MEDS: Metoprolol Succinate ER 50 MG TAB.ER.24H PO (08:09)
[2021-06-13 08:10] LABS: Glucose, Whole Blood 198 mg/dL (60-115)
[2021-06-13] MEDS: Insulin Lispro 100 UNIT/ML 3 ML VIAL SUBCUT ×4 (08:10→20:40)
[2021-06-13] MEDS: 0.9 % Sodium Chloride Flush 3 ML SYRINGE IVFLUSH ×3 (11:44→20:40)
[2021-06-13 11:55] LABS: Glucose, Whole Blood 187 mg/dL (60-115)
--- NOTE | 2021-06-13 11:57 | HO.PM.IMPN ---
Subjective Subjective Date of Service: 06/13/21 Interval History: No acute events overnight. Breast pain improving Review of Systems Denies chest pain Denies shortness of breath Denies nausea vomiting diarrhea Physical Exam Vital Signs: Vital Signs: Last Vital Signs Temp 98.4 F 06/13/21 07:28 Pulse 92 06/13/21 07:28 Resp 19 06/13/21 07:28 BP 140/77 H 06/13/21 07:28 Pulse Ox 91 L 06/13/21 07:28 Oxygen Flow Rate 2 06/07/21 06:41 Body Mass Index 60.9 Const: Other: Awake alert no acute distress Resp: Other: Clear to auscultation bilaterally. No rales rhonchi wheezes Cardio: Other: No S4; positive S1-S2; no S3 murmurs rubs or gallops GI: Other: Soft nontender nondistended with normoactive bowel sounds. Extrem: Other: No edema Objective Data Active Medications Acetaminophen (Acetaminophen 325 Mg Tablet) 650 mg PO Q4H PRN PRN Reason: Fever Last Admin: 06/12/21 15:40 Dose: 650 mg Documented by: DELORIS Albuterol Sulfate (Albuterol Sulfate 90 Mcg 8 Gm Inhaler) 2 puff INHALE Q4H PRN PRN Reason: Dyspnea Albuterol/Ipratropium (Albuterol/Iprat 2.5/0.5mg 3 Ml Ampul.Neb) 3 ml INHALE RQ4H WHILE AWAKE PRN PRN Reason: Shortness Of Breath/Wheezing Amlodipine Besylate (Amlodipine Besylate 5 Mg Tablet) 5 mg PO DAILY [facility]; Protocol Last Admin: 06/13/21 08:09 Dose: 5 mg Documented by: ROSIE Aspirin (Aspirin Enteric Coated 81 Mg Tablet.) 81 mg PO DAILY [facility] Last Admin: 06/13/21 08:06 Dose: 81 mg Documented by: ROSIE Atorvastatin Calcium (Atorvastatin Calcium 10 Mg Tablet) 10 mg PO BEDTIME [facility] Last Admin: 06/12/21 20:27 Dose: 10 mg Documented by: RANJANA Bumetanide (Bumetanide 1 Mg Tablet) 2 mg PO DAILY [facility]; Protocol Last Admin: 06/10/21 07:51 Dose: 2 mg Documented by: PAPA Diphenhydramine HCl (Diphenhydramine Hcl 50 Mg/Ml Vial) 25 mg IVPUSH Q6H PRN PRN Reason: hives Enoxaparin Sodium (Enoxaparin Sodium 40 Mg/0.4 Ml Syringe) 40 mg SUBCUT Q24H [facility] Last Admin: 06/12/21 15:40 Dose: 40 mg Documented by: COTEMA Fluoxetine HCl (Fluoxetine Hcl 20 Mg Capsule) 40 mg PO DAILY [facility] Last Admin: 06/13/21 08:09 Dose: 40 mg Documented by: ROSIE Fluticasone Propionate (Fluticasone Propionate 100 Mcg Blst.W.Dev) 2 puff INHALE RBID [facility] Last Admin: 06/13/21 07:17 Dose: Not Given Documented by: ZENA Non-Admin Reason: Patient Refused Gabapentin (Gabapentin 400 Mg Capsule) 400 mg PO BID@0900,1200 [facility] Last Admin: 06/13/21 08:07 Dose: 400 mg Documented by: ROSIE Cefepime HCl 1 gm/ Sodium (Chloride) 50 mls @ 100 mls/hr IV Q8H [facility] Last Admin: 06/13/21 11:44 Dose: 100 mls/hr Documented by: ROSIE Dextrose/Sodium Chloride (D51/2ns) 1,000 mls @ 125 mls/hr IVCONT .Q8H [facility] Insulin Glargine (Insulin Glargine,Hum.Rec.Anlog 100 Unit/Ml 10 Ml Vial) 80 unit SUBCUT BEDTIME [facility] Last Admin: 06/12/21 20:27 Dose: 80 unit Documented by: RANJANA Insulin Human Lispro (Insulin Lispro 100 Unit/Ml 3 Ml Vial) 0 unit SUBCUT QIDACHS [facility]; Protocol Last Admin: 06/13/21 08:10 Dose: 2 unit Documented by: ROSIE Isosorbide Mononitrate (Isosorbide Mononitrate 30 Mg Tab.Er.24h) 30 mg PO DAILY [facility]; Protocol Last Admin: 06/13/21 08:08 Dose: 30 mg Documented by: ROSIE Loperamide HCl (Loperamide Hcl 2 Mg Capsule) 2 mg PO Q4H PRN PRN Reason: Diarrhea Meclizine HCl (Meclizine Hcl 25 Mg Tablet) 25 mg PO TID PRN PRN Reason: Dizziness Metoprolol Succinate (Metoprolol Succinate Er 50 Mg Tab.Er.24h) 50 mg PO DAILY [facility]; Protocol Last Admin: 06/13/21 08:09 Dose: 50 mg Documented by: ROSIE Omeprazole (Omeprazole 20 Mg Capsule.Dr) 20 mg PO BEDTIME [facility] Last Admin: 06/12/21 20:26 Dose: 20 mg Documented by: RANJANA Oxycodone HCl (Oxycodone Hcl Immed Release 5 Mg Tablet) 5 mg PO Q6H PRN PRN Reason: pain Last Admin: 06/12/21 15:40 Dose: 5 mg Documented by: JOHANNEEMA Pharmacy Consult (Consult Rx Perform Med Rec) 1 each MISCELLANE ONCE PRN PRN Reason: Consult order Pregabalin (Pregabalin 100 Mg Capsule) 100 mg PO DAILY [facility] Last Admin: 06/13/21 08:07 Dose: 100 mg Documented by: ROSIE Sodium Chloride (0.9 % Sodium Chloride Flush 3 Ml Syringe) 3 ml IVFLUSH QSHIFT [facility] Last Admin: 06/13/21 11:44 Dose: 3 ml Documented by: ROSIE Tizanidine HCl (Tizanidine Hcl 4 Mg Tablet) 4 mg PO BEDTIME [facility] Last Admin: 06/12/21 20:26 Dose: 4 mg Documented by: RANJANA Vitamin D (Cholecalciferol (Vitamin D3) 25 Mcg Tablet) 25 mcg PO DAILY [facility] Last Admin: 06/13/21 08:07 Dose: 25 mcg Documented by: ROSIE Labs CBC & Chem 7: 06/12/21 05:23 06/12/21 05:23 Labs: Laboratory Results - last 24 hr 06/12/21 06/12/21 06/13/21 16:36 20:05 05:41 PT 12.0 INR 1.1 APTT 54.5 H POC Glucose 192 H 216 H 06/13/21 06/13/21 07:40 11:50 PT INR APTT POC Glucose 198 H 187 H Microbiology Microbiology Results: Microbiology 06/10/21 07:46 Blood Culture - Preliminary Blood - Venous No growth after 48 hours. 06/10/21 07:45 Blood Culture - Preliminary Blood - Venous No growth after 48 hours. Assessment and Plan (1) Cellulitis: Status: Acute (2) FELICIA (acute kidney injury): Status: Acute (3) Abscess of right breast: Status: Acute Assessment and Plan: 61 year old women presented to ER with fever. She had been on ED hold for several days waiting SNF placement however fever persisted. Multiple imaging studies failed to demonstrate a source for her infection however she had a mild leukocytosis with some mild redness to her right breast. Consult placed to surgery who felt that there was no drainable abscess and that she should be admitted for IV antibiotics and follow her white count. 1. Cutaneous abscess right breast Continue cefepime as ordered. Follow white count and repeat ultrasound at the 4-5 day dionna. Remains afebrile 2.CKD. Creatinine increased from 2.57-3.01 Seen by Nephrology; recommend DC IV diuresis and treat with gentle IV volume replacement Follow creatinine daily.... Will at this a.m. 3. Type 2 diabetes Continue sliding scale as ordered and adjust as indicated. Continue diabetic diet. Acceptable control on current regimen 4.Full code Lovenox? Quality Stroke Does the patient have a stroke diagnosis?: No VTE Prior VTE?: No VTE Risk Level:: Medical - moderate - high VTE Device Contraindication: Treatment Not Indicated VTE Drug Contraindication: N/A - Med Ordered
[2021-06-13] MEDS: Enoxaparin Sodium 40 MG/0.4 ML SYRINGE SUBCUT (14:44)
[2021-06-13] MEDS: HYDROmorphone HCl 0.5 MG/0.5 ML SYRINGE IVPUSH (14:45)
[2021-06-13 16:00] VITALS: BP 113/58; PULSE 85; RESP 18; TEMP 37.2; O2SAT 89
[2021-06-13 16:42] LABS: Glucose, Whole Blood 151 mg/dL (60-115)
[2021-06-13] MEDS: 0.9 % Sodium Chloride 1,000 ML 150 ML IVCONT ×2 (16:42→20:39)
[2021-06-13 19:05] VITALS: BP 118/77; PULSE 88; RESP 18; TEMP 37.4; O2SAT 92
--- NOTE | 2021-06-13 20:27 | PM.PNNEP ---
Subjective Subjective Date of Service: 06/13/21 Interval history: No acute events overnight. Breast pain improving C/o Dry mouth Physical Exam Vital Signs: Vital Signs: Last Vital Signs Temp 99.4 F 06/13/21 19:05 Pulse 88 06/13/21 19:05 Resp 18 06/13/21 19:05 BP 118/77 06/13/21 19:05 Pulse Ox 92 06/13/21 19:05 Oxygen Flow Rate 2 06/07/21 06:41 Body Mass Index 60.9 Const Other:?Awake alert no acute distress Resp Other:?Clear to auscultation bilaterally.? No rales rhonchi wheezes Cardio Other:?No S4; positive S1-S2; no S3 murmurs rubs or gallops GI Other:?Soft nontender nondistended with normoactive bowel sounds. Extrem Other:?+ edema Objective Data Labs CBC & Chem 7: 06/12/21 05:23 06/12/21 05:23 Labs: Laboratory Results - last 24 hr 06/13/21 06/13/21 06/13/21 05:41 07:40 11:50 PT 12.0 INR 1.1 APTT 54.5 H POC Glucose 198 H 187 H 06/13/21 16:13 PT INR APTT POC Glucose 151 H Microbiology Microbiology Results: Microbiology 06/10/21 07:46 Blood - Venous Blood Culture - Preliminary No growth after 48 hours. 06/10/21 07:45 Blood - Venous Blood Culture - Preliminary No growth after 48 hours. Procedures Date of Service Date of Service: 06/13/21 Assessment & Plan Assessment and plan (1) DUDLEY (acute kidney injury): Status: Acute Assessment and Plan: 1. DUDLEY : Dudley due to Acute tubular injury in the setting of Sepsis Infection/ Low BP? CHF .Obstruction ruled out Doubt AGN/ AIN given bland UA 2. CKD stage 3 at baseline in the setting of? HTN/ DM 3. R breast cellulites? 4. H/o CHF - Avoid Nephrotoxins - Bumex- Continue to hold - Lowered dose og Lytica and Gabapentin - IVF NS as ordered - Antibiotics as per medical team - F/U renal function - BP acceptable -Check renal func in AM - Elliott placed - AM labs ordered Thx (2) Morbid obesity: Status: Acute Time Spent With Patient Time: Total time spent is greater than 50% in coordination of care (as documented) at patient's floor/unit and/or counseling patient: Progress Note: Quality Stroke Does the patient have a stroke diagnosis?: No
[2021-06-13] MEDS: Insulin Glargine,Hum.rec.anlog 100 UNIT/ML 10 ML VIAL 80 UNIT SUBCUT (20:39)
[2021-06-13] MEDS: Atorvastatin Calcium 10 MG TABLET PO (20:39)
[2021-06-13] MEDS: TiZANidine HCL 4 MG TABLET PO (20:40)
[2021-06-13] MEDS: Omeprazole 20 MG CAPSULE.DR PO (20:40)
[2021-06-13] MEDS: oxyCODONE HCl Immed Release 5 MG TABLET 10 MG PO (20:41)
[2021-06-13 20:48] LABS: Glucose, Whole Blood 185 mg/dL (60-115)
[2021-06-14] VITALS: BP 118/56; PULSE 88; RESP 14; TEMP 36.6; O2SAT 91
[2021-06-14] MEDS: cefEPime HCl 1 GM in 0.9 % Sodium Chloride 50 ML IV ×2 (03:15→10:06)
[2021-06-14] MEDS: 0.9 % Sodium Chloride 1,000 ML 150 ML IVCONT ×2 (03:24→10:14)
[2021-06-14 04:00] VITALS: BP 167/123; PULSE 104; RESP 17; TEMP 36.6; O2SAT 93
[2021-06-14] MEDS: oxyCODONE HCl Immed Release 5 MG TABLET 10 MG PO ×2 (04:45→10:13)
[2021-06-14 05:58] LABS: Basophils Percent Auto 0.3 % (0-2); Eosinophils Percent Auto 0.3 % (0-4); Hemoglobin 9.9 g/dl (12.0-16.0); Imm Gran Abs Auto 0.05 X10*3/uL (0.00-0.03); Imm Gran Pct Auto 0.8 % (0.0-0.4); Lymphocytes Absolute Auto 0.6 X10*3/uL (1.2-4.9); Lymphocytes Percent Auto 9.9 % (20-40); MANUAL DIFF FLAG NO; Mean Corpuscular Hemoglobin 25.4 pg (27.0-33.0); Mean Corpuscular Volume 84.6 fL (80.0-98.0); Monocytes Absolute Auto 0.8 X10*3/uL (0.1-1.2); Monocytes Percent Auto 13.7 % (2-11); Neutrophils Absolute Auto 4.6 x10*3/uL (2.0-8.3); Platelet Count 190 X10*3/uL (160-400); Red Cell Distribution Width 17.6 % (11.0-16.0); White Blood Count 6.2 X10*3/uL (4.8-10.8)
[2021-06-14 06:39] LABS: Alanine Aminotransferase 14 U/L (0-31); Albumin Level 3.6 g/dL (3.5-5.0); Alkaline Phosphatase 94 U/L (39-117); Anion Gap 18 (12-20); Aspartate Amino Transferase 25 U/L (5-31); Bilirubin Total 0.3 mg/dL (0.0-1.0); Blood Urea Nitrogen 99 mg/dL (9-16); Calcium 8.4 mg/dL (8.4-10.2); Carbon Dioxide 24 mmol/L (22-29); Chloride 102 mmol/L (96-108); Creatinine Clr Calc Pharmacy 42.3; Estimated Glomerular Filt Rate 27; Glucose Fasting 157 mg/dL (60-99); Phosphorus 4.1 mg/dL (2.7-4.5); Potassium 5.2 mmol/L (3.3-5.1); Sodium 139 mmol/L (135-145); Total Protein 7.2 g/dL (6.5-8.0)
[2021-06-14] MEDS: Fluticasone Propionate 100 MCG BLST.W.DEV 2 PUFF INHALE (07:41)
[2021-06-14 07:42] VITALS: PULSE 92; O2SAT 93
[2021-06-14 07:45] VITALS: BP 139/104; PULSE 94; RESP 17; TEMP 36.2; O2SAT 92
[2021-06-14 08:25] LABS: Glucose, Whole Blood 159 mg/dL (60-115)
--- NOTE | 2021-06-14 09:07 | MHC.CM.PN ---
CONTRARY TO PATIENT REPORT, PATIENT IS ACTIVE DAILY WITH [facility] SHE HAS RN AND HOME HEALTH AID SERVICES. NO SNF BED OFFERS SECONDARY TO NON-VACCINATED STATUS. MADE AWARE.
[2021-06-14] MEDS: Gabapentin 400 MG CAPSULE PO ×2 (10:07→13:44)
[2021-06-14] MEDS: FLUoxetine HCl 20 MG CAPSULE 40 MG PO (10:07)
[2021-06-14] MEDS: Aspirin Enteric Coated 81 MG TABLET.DR PO (10:07)
[2021-06-14] MEDS: Cholecalciferol (Vitamin D3) 25 MCG TABLET PO (10:07)
[2021-06-14] MEDS: amLODIPine Besylate 5 MG TABLET PO (10:07)
[2021-06-14] MEDS: Metoprolol Succinate ER 50 MG TAB.ER.24H PO (10:08)
[2021-06-14] MEDS: Isosorbide Mononitrate 30 MG TAB.ER.24H PO (10:08)
[2021-06-14] MEDS: Insulin Lispro 100 UNIT/ML 3 ML VIAL SUBCUT ×2 (10:08→17:12)
[2021-06-14] MEDS: Pregabalin 100 MG CAPSULE PO (10:08)
--- NOTE | 2021-06-14 11:39 | CONS_ITS ---
DATE OF SERVICE: 06/11/2021 REASON FOR CONSULTATION: Consult requested by the medical team to evaluate and help in management of patient with acute kidney injury. HISTORY OF PRESENT ILLNESS: The patient is a 61-year-old female with past medical history of systolic/diastolic CHF, history of asthma, chronic kidney disease stage III at baseline with a baseline creatinine around 1.5, who presented to the hospital with complaints of fever. The patient has had several days of fever, which has been persistent. She had multiple imaging studies, these are all negative. She had a mildly elevated white count. No chest pain, short of breath, nausea, vomiting, diarrhea. In the ER, the patient was admitted with a diagnosis of breast cellulitis, it was on the right side. She was treated with cefepime. Renal consult has been requested as the creatinine was 1.54 on admission, which increased to 1.27. The patient did have a CT of the chest and CT of the abdomen and pelvis, both of them were done without contrast. There is no hydronephrosis and bladder was unremarkable on the CT of the abdomen and pelvis. REVIEW OF SYSTEMS: As noted above. Other systems were reviewed, negative. PAST MEDICAL HISTORY: History of acute/chronic combined systolic and diastolic CHF, history of asthma, chronic pain, chronic kidney disease stage 3, history of CHF, depression, type 2 diabetes mellitus, diabetic neuropathy, history of hypercholesteremia, hypertension, morbid obesity, nonischemic cardiomyopathy, obstructive sleep apnea. PAST SURGICAL HISTORY: Include history of cholecystectomy. PERSONAL AND SOCIAL HISTORY: Patient is a former smoker. Smoked for 38 years. Uses marijuana. Does not drink alcohol. Does not use any other drugs. ALLERGIES: INCLUDE ALLERGIES TO IBUPROFEN, MORPHINE, AND TYLENOL. HOME MEDICATIONS: Include albuterol, aspirin, fluoxetine, metoprolol, omeprazole, simvastatin, isosorbide mononitrate, tizanidine, amlodipine, Bumex 2 mg daily, cholecalciferol, gabapentin, insulin, loperamide, meclizine, pregabalin. PHYSICAL EXAMINATION: GENERAL: Patient is resting in the bed. Awake, able to follow commands. Not in significant distress. VITAL SIGNS: Blood pressure was 104/54, pulse 76, afebrile. HEENT: Shows pupils equal bilaterally and reactive to light. No jugular venous distention noted. NECK: Supple. CARDIOVASCULAR SYSTEM: S1, S2 without rub or murmur. RESPIRATORY SYSTEM: Air entry decreased in the bases. ABDOMEN: Obese, soft. Bowel sounds normal. EXTREMITIES: Showed trace edema with chronic changes. LABS: Done recently, sodium 140, potassium 4.8, chloride 99, CO2 28, BUN 56, creatinine 2.57. Hemoglobin 9.2, hematocrit 31.8, WBC 10.2, platelets 152. COVID was negative. Urinalysis done on June 09, urine was yellow, clear. Specific gravity 1.020, protein 1+, rbc's 0, wbc 0-2. IMPRESSION: 1. A 61-year-old female with acute kidney injury. Acute kidney injury in this patient is likely secondary to acute tubular injury in the setting of sepsis/infection. She was also hypotensive, which could have contributed to her renal insufficiency. Obstruction has been ruled out based on the CAT scan done in the ER. In the absence of hematuria, pyuria, I doubt the patient has acute GN/interstitial disease. 2. Chronic kidney disease stage III at baseline in the setting of longstanding hypertension with hypertensive renal disease and diabetic renal disease, is low in the differential diagnosis for CKD as patient does not have significant proteinuria. 3. Right breast cellulitis. 4. History of congestive heart failure. RECOMMENDATION: At this juncture, I would recommend avoiding nephrotoxins. We can continue the present dose of p.o. Bumex. I recommend checking input and output closely. Antibiotic as per medical team. Blood pressure is on the low side, I have taken liberty of decreasing dose of amlodipine 5 mg daily. We should follow renal function closely in the a.m. We will continue to follow the patient closely. Thank you for allowing me to participate in medical management of the patient. ADDENDUM: If the patient's renal function does not improve over the next 24 hours, we need to decrease the dose of gabapentin and Lyrica to avoid neurotoxic effect in the setting of worsening renal function. MD ARABELLA Delgado/CLEMENTE / [id number]
[2021-06-14 11:51] VITALS: BP 151/100; PULSE 109; RESP 18; TEMP 36.2; O2SAT 95
[2021-06-14 12:05] LABS: Glucose, Whole Blood 149 mg/dL (60-115)
[2021-06-14] MEDS: Enoxaparin Sodium 40 MG/0.4 ML SYRINGE SUBCUT (13:44)
[2021-06-14] MEDS: 0.9 % Sodium Chloride Flush 3 ML SYRINGE IVFLUSH (13:45)
--- NOTE | 2021-06-14 14:03 | MHC.CM.PN ---
CHANGE OF PLAN- PATIENT TOP RETURN HOME TONIGHT WITH RESUMPTION OF HER [facility] SERVICES. PATIENT AND RN AWARE OF PLAN. PATIENT IS ON HOME O2 @ 2 LITRES ANBD FEELS SHE DOES BETTER WITH 3 LITRES. MD MADE AWARE. IF FAMILY IS UNABLE TO TRANSPORT, [facility] WILL BE REQUESTED.
--- NOTE | 2021-06-14 14:04 | PM.DS ---
DS: Providers Provider Date of Service: 06/14/21 Date of admission: 06/10/21 15:10 Primary care physician: Tavo Huber MD Consults: 06/11/21 08:06 Consult to General Surgery Routine Consulting Provider: Viet Pandey Reason for consultation: breast abscess Has provider been notified: No 06/11/21 09:05 Consult to Nephrology Routine Consulting Provider: Rad Syed Reason for consultation: felicia, hx chf Has provider been notified: No DS: Diagnosis Discharge Diagnosis (1) FELICIA (acute kidney injury): Status: Acute (2) Morbid obesity: Status: Acute DS: Summary Hospital Course Hospital Course: ?61 year old women presenting with fever. She had been in the ED for several days pending SNF placement however her fever persisted. She had multiple imaging studies, all negative, therefore at this time there is no confirmed source of infection. She has fever, mild WBC. She denied chest pain, shortness of breath, nausea, vomiting, diarrhea. She has no open sores or wounds, although she has some mild redness to her right breast She was given a dose of cefepime in the ED and she will be admitted for possible fever secondary to breast cellulitis Hospital course patient admitted to the hospital and seen by surgery who felt there was no acute need for drainage. She was maintained on cefepime with resolution of breast erythema and tenderness. Of note her renal function worsened on antibiotics prompting Renal consult. Diuresis was withheld and gentle IV fluids were given with improvement and her renal status. At this point time she is medically acceptable for discharge; she will resume her previous medication with the addition of 5 days of oral Keflex Time Spent with Patient Time attestation: Total time spent providing and/or coordinating discharge services: Discharge coordination time: Greater than 30 minutes Quality: Stroke Does the patient have a stroke diagnosis?: No Physical Exam Vital Signs: Vital Signs: Last Vital Signs Temp 97.1 F 06/14/21 11:51 Pulse 109 H 06/14/21 11:51 Resp 18 06/14/21 11:51 BP 151/100 H 06/14/21 11:51 Pulse Ox 95 06/14/21 11:51 Oxygen Flow Rate 2 06/07/21 06:41 Body Mass Index 60.9 Const: Other: Awake alert no acute distress Resp: Other: Clear to auscultation bilaterally. No rales rhonchi wheezes Cardio: Other: No S4; positive S1-S2; no S3 murmurs rubs or gallops GI: Other: Soft nontender nondistended with normoactive bowel sounds. Extrem: Other: No edema DS: Data Data Completed and Pending Completed studies during hospitalization [Text1]: Procedures Assistance with Respiratory Ventilation, Less than 24 Consecutive Hours, Continuous Positive Airway Pressure (12/11/20) Labs on day of discharge: Laboratory Results - last 24 hr 06/13/21 06/13/21 06/14/21 16:13 20:24 05:30 WBC 6.2 RBC 3.90 L Hgb 9.9 L Hct 33.0 L MCV 84.6 MCH 25.4 L MCHC 30.0 L RDW 17.6 H Plt Count 190 MPV 10.0 Immature Gran % (Auto) 0.8 H Neut % (Auto) 75.0 H Lymph % (Auto) 9.9 L [place] % (Auto) 13.7 H Eos % (Auto) 0.3 Baso % (Auto) 0.3 Lymph # (Auto) 0.6 L [place] # (Auto) 0.8 Eos # (Auto) 0.0 Baso # (Auto) 0.0 Abs Immat Gran (auto) 0.05 H Absolute Neuts (auto) 4.6 Absolute Nucleated RBC 0.000 Nucleated RBC % (auto) 0.0 Sodium Potassium Chloride Carbon Dioxide Anion Gap BUN Creatinine Estim Creat Clear Calc Estimated GFR POC Glucose 151 H 185 H Fasting Glucose Calcium Phosphorus Total Bilirubin AST ALT Alkaline Phosphatase Total Protein Albumin 06/14/21 06/14/21 06/14/21 05:30 07:44 11:49 WBC RBC Hgb Hct MCV MCH MCHC RDW Plt Count MPV Immature Gran % (Auto) Neut % (Auto) Lymph % (Auto) Starr % (Auto) Eos % (Auto) Baso % (Auto) Lymph # (Auto) Starr # (Auto) Eos # (Auto) Baso # (Auto) Abs Immat Gran (auto) Absolute Neuts (auto) Absolute Nucleated RBC Nucleated RBC % (auto) Sodium 139 Potassium 5.2 H Chloride 102 Carbon Dioxide 24 Anion Gap 18 BUN 99 H* Creatinine 1.87 H Estim Creat Clear Calc 42.3 Estimated GFR 27 POC Glucose 159 H 149 H Fasting Glucose 157 H Calcium 8.4 Phosphorus 4.1 Total Bilirubin 0.3 AST 25 D ALT 14 Alkaline Phosphatase 94 D Total Protein 7.2 Albumin 3.6 Preliminary micro results at discharge 06/10/21 07:46 Blood Culture - Preliminary Blood - Venous No growth after 48 hours. 06/10/21 07:45 Blood Culture - Preliminary Blood - Venous No growth after 48 hours. Discharge Plan Discharge Patient Disposition: Home Health Service Discharge Diagnosis: right breast cellulitis; FELICIA resolved Referrals: Tavo Huber MD [Primary Care Provider] - 1 Week Discharge Medications: New cephalexin 500 mg capsule 500 mg PO TID Qty: 15 RF: 0 Continued gabapentin 400 mg capsule 400 mg PO BID@0900,1200 RF: 0 ipratropium-albuterol 0.5 mg-3 mg(2.5 mg base)/3 mL Solution For Nebulization 3 ml inhalation RQ4H WHILE AWAKE PRN (Reason: Shortness Of Breath/Wheezing) Qty: 1 RF: 0 insulin lispro [Humalog U-100 Insulin] 100 unit/mL Solution See Protocol unit subcut QIDACHS Qty: 1 RF: 0 fluoxetine 40 mg capsule 40 mg PO DAILY RF: 0 metoprolol succinate 50 mg tablet extended release 24 hr 50 mg PO DAILY RF: 0 aspirin 81 mg tablet,delayed release (DR/EC) 81 mg PO DAILY RF: 0 simvastatin 20 mg tablet 20 mg PO BEDTIME RF: 0 omeprazole 20 mg capsule,delayed release(DR/EC) 20 mg PO BEDTIME RF: 0 albuterol sulfate [ProAir HFA] 90 mcg/actuation HFA aerosol inhaler 2 puff inhalation Q4H PRN (Reason: Dyspnea) RF: 0 Flovent HFA 110 mcg/actuation HFA aerosol inhaler 2 puff inhalation BID RF: 0 tizanidine 4 mg Tablet 4 mg PO BEDTIME RF: 0 isosorbide mononitrate 30 mg Tablet Extended Release 24 Hr 30 mg PO DAILY RF: 0 Lantus U-100 Insulin 100 unit/mL solution 80 unit subcut BEDTIME RF: 0 bumetanide 2 mg tablet 1 tab PO DAILY RF: 0 amlodipine 10 mg tablet 1 tab PO DAILY RF: 0 cholecalciferol (vitamin D3) 25 mcg (1,000 unit) capsule 1 cap PO DAILY RF: 0 loperamide 2 mg Tablet 2 mg PO Q4H PRN (Reason: Diarrhea) RF: 0 meclizine 25 mg Tablet 25 mg PO TID PRN (Reason: Dizziness) RF: 0 gabapentin 400 mg capsule 800 mg PO BEDTIME RF: 0 pregabalin 100 mg capsule 1 cap PO BID RF: 0 Discharge Orders: Discharge Order (Routine); Ordered 06/14/21 Ordered By: Ismael Rogers Diet: advance to usual diet Activity on Discharge: As tolerated Stand Alone Forms: Patient Portal Discharge page Care Plan Goals: continue meds as ordered follow Health Concerns: compliance with medication Plan of Treatment: as order Assessment: improved
[2021-06-14 15:56] VITALS: BP 153/93; PULSE 88; RESP 20; TEMP 36.4; O2SAT 94
--- NOTE | 2021-06-14 16:07 | MHC.CM.PN ---
MOTION FOR SHORT ORDER OF NOTICE SERVED TO PATIENT HEARING TO BE HELD JUN 21, 2021 @ 11:00 INFO WRITTEN ON WHITE BOARD
[2021-06-14 16:54] LABS: Glucose, Whole Blood 283 mg/dL (60-115)
--- NOTE | 2021-06-14 21:42 | PM.PNNEP ---
Subjective Subjective Date of Service: 06/14/21 Interval history: No acute events overnight. Breast pain improving Good urine output Physical Exam Vital Signs: Vital Signs: Last Vital Signs Temp 97.5 F 06/14/21 15:56 Pulse 88 06/14/21 15:56 Resp 20 06/14/21 15:56 BP 153/93 H 06/14/21 15:56 Pulse Ox 94 06/14/21 15:56 Oxygen Flow Rate 2 06/07/21 06:41 Body Mass Index 60.9 Const Other:?Awake alert no acute distress Resp Other:?Clear to auscultation bilaterally.? No rales rhonchi wheezes Cardio Other:?No S4; positive S1-S2; no S3 murmurs rubs or gallops GI Other:?Soft nontender nondistended with normoactive bowel sounds. Extrem Other:?+ edema Objective Data Labs CBC & Chem 7: 06/14/21 05:30 06/14/21 05:30 Labs: Laboratory Results - last 24 hr 06/14/21 06/14/21 06/14/21 05:30 05:30 07:44 WBC 6.2 RBC 3.90 L Hgb 9.9 L Hct 33.0 L MCV 84.6 MCH 25.4 L MCHC 30.0 L RDW 17.6 H Plt Count 190 MPV 10.0 Immature Gran % (Auto) 0.8 H Neut % (Auto) 75.0 H Lymph % (Auto) 9.9 L [place] % (Auto) 13.7 H Eos % (Auto) 0.3 Baso % (Auto) 0.3 Lymph # (Auto) 0.6 L [place] # (Auto) 0.8 Eos # (Auto) 0.0 Baso # (Auto) 0.0 Abs Immat Gran (auto) 0.05 H Absolute Neuts (auto) 4.6 Absolute Nucleated RBC 0.000 Nucleated RBC % (auto) 0.0 Sodium 139 Potassium 5.2 H Chloride 102 Carbon Dioxide 24 Anion Gap 18 BUN 99 H* Creatinine 1.87 H Estim Creat Clear Calc 42.3 Estimated GFR 27 POC Glucose 159 H Fasting Glucose 157 H Calcium 8.4 Phosphorus 4.1 Total Bilirubin 0.3 AST 25 D ALT 14 Alkaline Phosphatase 94 D Total Protein 7.2 Albumin 3.6 06/14/21 06/14/21 11:49 16:31 WBC RBC Hgb Hct MCV MCH MCHC RDW Plt Count MPV Immature Gran % (Auto) Neut % (Auto) Lymph % (Auto) [place] % (Auto) Eos % (Auto) Baso % (Auto) Lymph # (Auto) [place] # (Auto) Eos # (Auto) Baso # (Auto) Abs Immat Gran (auto) Absolute Neuts (auto) Absolute Nucleated RBC Nucleated RBC % (auto) Sodium Potassium Chloride Carbon Dioxide Anion Gap BUN Creatinine Estim Creat Clear Calc Estimated GFR POC Glucose 149 H 283 H Fasting Glucose Calcium Phosphorus Total Bilirubin AST ALT Alkaline Phosphatase Total Protein Albumin Microbiology Microbiology Results: Microbiology 06/10/21 07:46 Blood - Venous Blood Culture - Preliminary No growth after 48 hours. 06/10/21 07:45 Blood - Venous Blood Culture - Preliminary No growth after 48 hours. Procedures Date of Service Date of Service: 06/14/21 Assessment & Plan Assessment and plan (1) DUDLEY (acute kidney injury): Status: Acute Assessment and Plan: 1. DUDLEY : Dudley due to Acute tubular injury in the setting of Sepsis? Infection/ Low BP? CHF .Obstruction ruled out Doubt AGN/ AIN given bland UA 2. CKD stage 3 at baseline in the setting of? HTN/ DM 3. R breast cellulites? 4. H/o CHF - Avoid Nephrotoxins - Bumex-can be restarted - D/c IVF - Antibiotics as per medical team - for d/c Thx Time Spent With Patient Time: Total time spent is greater than 50% in coordination of care (as documented) at patient's floor/unit and/or counseling patient: Time with patient: 25 - 35 minutes Progress Note: Quality Stroke Does the patient have a stroke diagnosis?: No
== END 2021-06-14 18:20 | disposition home health service (06) | DRG 385 ==
LOC: HO.ED 06:54 → HO.EDOVER 06-10 15:16 → HO.S3 06-10 15:57
PROVIDERS: Internal Medicine; Internal Medicine Nephrology; Physician Assistant; Admitting Provider Nurse Practitioner Acute Care; Emergency Provider Emergency Medicine; PCP Internal Medicine; Visit Provider Hospitalist
DX: N61.1 Abscess of the breast and nipple (principal); N17.0 Acute kidney failure with tubular necrosis; D63.1 Anemia in chronic kidney disease; Z68.44 Body mass index [BMI] 60.0-69.9, adult; E11.22 Type 2 diabetes mellitus with diabetic chronic kidney disease; D72.829 Elevated white blood cell count, unspecified; N18.30 Chronic kidney disease, stage 3 unspecified; E11.40 Type 2 diabetes mellitus with diabetic neuropathy, unspecified; J44.9 Chronic obstructive pulmonary disease, unspecified; E66.01 Morbid (severe) obesity due to excess calories; G47.33 Obstructive sleep apnea (adult) (pediatric); I50.32 Chronic diastolic (congestive) heart failure; I50.22 Chronic systolic (congestive) heart failure; Z20.822 Contact with and (suspected) exposure to COVID-19; Z87.891 Personal history of nicotine dependence; Z88.5 Allergy status to narcotic agent; Z88.6 Allergy status to analgesic agent; Z79.4 Long term (current) use of insulin; Z79.82 Long term (current) use of aspirin; Z79.899 Other long term (current) drug therapy
CPT/HCPCS: 0241U; 36415; 71045; 71250; 74176; 76642; 80048; 80053; 80076; 81001; 82947; 83605; 83735; 83880; 84100; 84484; 85025; 85027; 85610; 85730; 87040; 87633; 87635; 93005; 94640; 96374; 96375; 97110; 97162; 97530; 99285; C1758; J0692; J1170; J1650

== ENCOUNTER 2021-12-06 13:55 | Outpatient (REF) | payer MEDICAID, SELFPAY ==
[2021-12-06 14:10] LABS: MANUAL DIFF FLAG NO
[2021-12-06 14:33] LABS: Basophils Percent Auto 0.3 % (0-2); Eosinophils Absolute Auto 0.2 X10*3/uL (0.0-0.4); Hematocrit 35.1 % (37.0-47.0); Hemoglobin 10.2 g/dl (12.0-16.0); Imm Gran Abs Auto 0.06 X10*3/uL (0.00-0.03); Imm Gran Pct Auto 0.7 % (0.0-0.4); Lymphocytes Absolute Auto 1.4 X10*3/uL (1.2-4.9); Lymphocytes Percent Auto 15.7 % (20-40); Mean Corpuscular HGB Conc 29.1 g/dl (31.0-35.0); Mean Corpuscular Hemoglobin 25.2 pg (27.0-33.0); Mean Corpuscular Volume 86.9 fL (80.0-98.0); Mean Platelet Volume 10.2 fL (9.4-12.3); Monocytes Absolute Auto 0.8 X10*3/uL (0.1-1.2); Monocytes Percent Auto 8.9 % (2-11); Neutrophils Absolute Auto 6.3 x10*3/uL (2.0-8.3); Neutrophils Percent Auto 72.4 % (45-73); Platelet Count 150 X10*3/uL (160-400); Red Blood Count 4.04 X10*6/uL (4.20-5.50); Red Cell Distribution Width 17.6 % (11.0-16.0); White Blood Count 8.7 X10*3/uL (4.8-10.8)
[2021-12-06 14:43] LABS: Estimated Average Glucose 266 mg/dL; Hemoglobin A1c % 10.9 %
[2021-12-06 14:57] LABS: Alanine Aminotransferase 10 U/L (0-31); Albumin Level 3.6 g/dL (3.5-5.0); Alkaline Phosphatase 75 U/L (39-117); Anion Gap 15 (12-20); Aspartate Amino Transferase 12 U/L (5-31); Bilirubin Total 0.3 mg/dL (0.0-1.0); Blood Urea Nitrogen 55 mg/dL (9-16); Calcium 8.6 mg/dL (8.4-10.2); Carbon Dioxide 32 mmol/L (22-29); Chloride 100 mmol/L (96-108); Estimated Glomerular Filt Rate 30; Glucose Random 199 mg/dL (60-115); Potassium 5.2 mmol/L (3.3-5.1); Sodium 142 mmol/L (135-145); Total Protein 6.8 g/dL (6.5-8.0)
[2021-12-06 15:18] LABS: Thyroid Stimulating Hormone 0.77 uIU/mL (0.32-4.0)
== END 2021-12-06 13:56 | disposition home or self-care (01) ==
LOC: HO.LAB 13:55
PROVIDERS: PCP Internal Medicine; Visit Provider Internal Medicine
DX: I12.9 Hypertensive chronic kidney disease with stage 1 through stage 4 chronic kidney disease, or unspecified chronic kidney disease (principal); N18.9 Chronic kidney disease, unspecified; E11.22 Type 2 diabetes mellitus with diabetic chronic kidney disease; J45.909 Unspecified asthma, uncomplicated
CPT/HCPCS: 36415; 80053; 83036; 84443; 85025

== ENCOUNTER 2022-03-25 16:21 | Inpatient (IN) | payer MEDICAID, SELFPAY ==
--- NOTE | ~2022-03-25 | XR_ITS ---
EXAMINATION: XR ANKLE, RIGHT CLINICAL INFORMATION: Swelling, pain, erythema COMPARISON: None TECHNIQUE: AP, lateral, and mortise views of the right ankle. FINDINGS: Diffuse swelling/edema of the visualized soft tissues of the leg, ankle and proximal foot. No soft tissue gas. Peripheral vessels are calcified. Bones have normal alignment at the ankle. The talar dome is well-positioned within the mortise. The ankle joint space is maintained. No overt ankle joint effusion. No erosions or periostitis. Small foci of ossification project distal to the medial malleolus. Also, there is a well-corticated ossicle at the tip of the lateral malleolus. No acute fracture. There are enthesophytes at the posterior and plantar surfaces of the calcaneus. XR/XR ankle RT 2V IMPRESSION: * No acute osseous injury at the right ankle. * There are no radiographic findings to suggest presence of septic arthritis or osteomyelitis. * Nonspecific diffuse soft tissue swelling of the examined lower extremity, ankle and foot.
--- NOTE | ~2022-03-25 | US_ITS ---
EXAMINATION: US VENOUS ULTRASOUND WITH DOPPLER LOWER EXTREMITY, RIGHT CLINICAL INFORMATION: Swelling, pain, erythema. To evaluate for DVT. COMPARISON: None TECHNIQUE: Ultrasound of the deep veins is performed from the hip to the calf with compression sonography and color and pulse Doppler assessment. Spectral analysis with color-flow imaging is performed. FINDINGS: There is normal venous compression and respiratory variation and augmented flow. The visualized common femoral vein, superficial femoral vein, profunda femoral vein, and popliteal vein shows no evidence of deep venous thrombosis. Subcutaneous edema is seen throughout the calf; no popliteal fossa cyst. The peroneal and posterior tibial veins in the calf were not visualized. If the patient's symptoms persist, followup ultrasound in 5 days 7 days might be of value to exclude proximal propagation from a non-visualized calf vein. US/US venous duplex LE RT IMPRESSION: No deep vein thrombosis in the visualized veins of the right lower extremity. The peroneal and posterior tibial veins in the calf were not visualized.
--- NOTE | ~2022-03-25 | US_ITS ---
EXAMINATION: US VENOUS ULTRASOUND WITH DOPPLER LOWER EXTREMITY, RIGHT CLINICAL INFORMATION: Persistent right lower extremity swelling. Edema. Clinical concern for deep venous thrombosis. COMPARISON: Selected portions of a previous study 03/26/22 TECHNIQUE: Ultrasound of the deep veins is performed from the hip to the calf with compression sonography and color and pulse Doppler assessment. Spectral analysis with color-flow imaging is performed. FINDINGS: Patient habitus limits the study. The patient was unable to tolerate compression in the region of the femoral vein of the right lower extremity in the mid thigh. There is normal venous compression and respiratory variation and augmented flow. The visualized common femoral vein, superficial femoral vein, profunda femoral vein, popliteal vein, and the trifurcation region shows no evidence of deep venous thrombosis. There is no significant popliteal fossa cyst. Extensive reticular hypoechoic areas within the soft tissues suggesting edema The proximal calf was examined. The posterior tibial veins appear patent in the upper aspect of the calf. The peroneal veins were unable to be visualized. US/US venous duplex LE RT IMPRESSION: No DVT demonstrated in the right lower extremity. Soft tissue abnormality consistent with edema
--- NOTE | ~2022-03-25 | XR_ITS ---
EXAMINATION: XR CHEST CLINICAL INFORMATION: Shortness of breath COMPARISON: 06/09/2021 TECHNIQUE: Frontal view of the chest was obtained. FINDINGS: Lung volumes are symmetric. No focal consolidation is seen. There is mild prominence of the central vasculature. No evidence of pneumothorax or significant pleural effusion. Cardiac silhouette is enlarged. No acute osseous findings are seen. XR/XR chest 1V IMPRESSION: Prominent central vasculature suggesting a degree of congestion. Enlarged cardiac silhouette.
--- NOTE | ~2022-03-25 | XR_ITS ---
EXAMINATION: XR CHEST CLINICAL INFORMATION: Hypoxia COMPARISON: 03/27/2022 TECHNIQUE: Frontal view of the chest was obtained. FINDINGS: Large body habitus. Although there appears to be haziness of lungs, some of the hazy opacity might actually be due to the overlying prominent soft tissues of the chest wall. Again noted is a large cardiac silhouette and prominent central pulmonary vessels. There is slightly increased but nonspecific hazy opacity at the mid to lower lung zones; uncertain if this is from layering of small effusions, atelectasis or basilar infiltrates. The right lateral costophrenic sulcus is indistinct. No pneumothorax or other significant change. XR/XR chest 1V IMPRESSION: * The examination of lungs is partially limited by the patient's body habitus. * Cardiomegaly and pulmonary vascular congestion. Findings are suggestive of congestive heart failure. The slightly increased hazy opacities of lower lung zones could represent atelectasis, infiltrates and/or layering of small effusions.
--- NOTE | ~2022-03-25 | XR_ITS ---
EXAMINATION: XR CHEST CLINICAL INFORMATION: Shortness of breath. COMPARISON: 03/26/2022 chest radiograph. TECHNIQUE: Frontal view of the chest was obtained. FINDINGS: There are increased pulmonary vascular markings. The heart is mildly enlarged. The mediastinal structures are unremarkable. XR/XR chest 1V IMPRESSION: Mild prominence of the pulmonary vasculature and cardiac silhouette may be baseline for the patient, but mild congestion cannot be excluded.
[2022-03-25 16:37] VITALS: BP 153/81; PULSE 98; RESP 20; TEMP 36.6; O2SAT 96; BMI 52.1
--- NOTE | 2022-03-25 18:40 | PC.NURSE ---
per daughter, bipap to be set up on .
--- NOTE | 2022-03-25 18:43 | PC.NURSE ---
med req questions yoanna-daughter [phone]
[2022-03-26 00:03] VITALS: BP 162/87; PULSE 98; RESP 18; TEMP 36.7; O2SAT 96
--- NOTE | 2022-03-26 01:55 | ED.GENADULT ---
HPI - General Adult General Chief complaint: General Medical Stated complaint: leg pain/ back pain Time Seen by Provider: 03/26/22 01:23 Source: patient Limitations: no limitations History of Present Illness HPI narrative: This is a 7-year-old female with history of morbid obesity, nonischemic cardiomyopathy, obstructive sleep apnea, combined systolic and diastolic CHF, diabetes mellitus, COPD who had been admitted to [facility] in recently for congestive heart failure as well as for cellulitis of her right foot and leg. The patient was discharged 4 days ago. She is on furosemide 40 mg twice a day. She denies being on a blood thinner, states she was getting Lovenox injections in the hospital. She complains of worsening swelling to her feet, poorly controlled pain to her legs. She notes she has worse swelling to her right foot and leg, and this is chronic but worse recently. She notes redness to her foot and right lower leg. She denies any shortness of breath but notes that she was on oxygen in the hospital, but her breathing improved during her hospitalization. She denies any fever or cough Related Data Home Medications Medication Instructions Recorded Confirmed albuterol sulfate 90 mcg/actuation 2 puff inhalation Q4H PRN Dyspnea 11/23/20 06/07/21 aerosol inhaler (ProAir HFA) aspirin 81 mg tablet,delayed 81 mg PO DAILY 11/23/20 06/07/21 release fluoxetine 40 mg capsule 40 mg PO DAILY 11/23/20 06/07/21 fluticasone propionate 110 2 puff inhalation BID 11/23/20 06/07/21 mcg/actuation HFA aerosol inhaler (Flovent HFA) metoprolol succinate 50 mg 50 mg PO DAILY 11/23/20 06/07/21 tablet,extended release 24 hr omeprazole 20 mg capsule,delayed 20 mg PO BEDTIME 11/23/20 06/07/21 release simvastatin 20 mg tablet 20 mg PO BEDTIME 11/23/20 06/07/21 isosorbide mononitrate 30 mg 30 mg PO DAILY 12/11/20 06/07/21 tablet,extended release 24 hr tizanidine 4 mg tablet 4 mg PO BEDTIME 12/11/20 06/07/21 gabapentin 400 mg capsule 400 mg PO BID@0900,1200 01/09/21 06/07/21 amlodipine 10 mg tablet 1 tab PO DAILY 06/07/21 06/07/21 bumetanide 2 mg tablet 1 tab PO DAILY 06/07/21 06/07/21 cholecalciferol (vitamin D3) 25 1 cap PO DAILY 06/07/21 06/07/21 mcg (1,000 unit) capsule gabapentin 400 mg capsule 800 mg PO BEDTIME 06/07/21 06/07/21 insulin glargine 100 unit/mL 80 unit subcut BEDTIME 06/07/21 06/07/21 subcutaneous solution (Lantus U-100 Insulin) loperamide 2 mg tablet 2 mg PO Q4H PRN Diarrhea 06/07/21 06/07/21 meclizine 25 mg tablet 25 mg PO TID PRN Dizziness 06/07/21 06/07/21 pregabalin 100 mg capsule 1 cap PO BID 06/08/21 06/08/21 Previous Rx's Medication Instructions Recorded insulin lispro 100 unit/mL See Protocol subcut QIDACHS #1 mL 01/16/21 subcutaneous solution (Humalog U-100 Insulin) ipratropium 0.5 mg-albuterol 3 mg 3 ml inhalation RQ4H WHILE AWAKE 01/16/21 (2.5 mg base)/3 mL nebulization PRN Shortness Of Breath/Wheezing soln #1 mL cephalexin 500 mg capsule 500 mg PO TID #15 caps 06/14/21 Allergies Allergy/AdvReac Type Severity Reaction Status Date / Time acetaminophen [Tylenol] AdvReac Intermediate vommiting, Verified 03/25/22 16:37 itching, hives ibuprofen AdvReac Intermediate vommiting, Verified 03/25/22 16:37 itching morphine AdvReac Intermediate vomiting Verified 03/25/22 16:37 Motrin Allergy Intermediate itching Uncoded 03/25/22 16:37 Review of Systems Review of Systems: Yes all other systems are reviewed and are negative Constitutional: Constitutional: Reports as per HPI and Denies fever(s) Eyes: Eyes: Reports as per HPI and Reports no additional eye complaints ENT: Reports system reviewed and no additional complaints, except as documented, Reports as per HPI, Denies nasal congestion, Denies nasal discharge and Denies sore throat Cardiovascular: Cardiovascular: Reports as per HPI, Denies chest pain and Denies dyspnea Respiratory: Respiratory: Reports as per HPI, Denies cough and Denies dyspnea Gastrointestinal: Gastrointestinal: Reports as per HPI, Denies abdominal pain, Denies diarrhea and Denies vomiting Genitourinary: Genitourinary: Reports as per HPI, Denies hematuria, Denies urinary frequency and Denies dysuria Musculoskeletal: Comments: Lower extremity pain, worse right foot and leg. Integumentary/Breasts: Skin/Breast: Reports as per HPI and Reports erythema (Right foot and leg) Neurologic: Reports as per HPI and Denies focal weakness Psychiatric: Psychiatric: Reports no additional psychiatric complaints and Reports as per HPI Endocrine: Endocrine: Reports no additional endocrine complaints and Reports as per HPI Hematologic/Lymphatic: Hematologic/Lymphatic: Reports no additional hematologic/lymphatic complaints, Reports as per HPI and Reports other (No peripheral edema) [facility] Past Medical History Medical History Acute on chronic combined systolic and diastolic CHF (congestive heart failure) Asthma Chronic pain CKD (chronic kidney disease) stage 3, GFR 30-59 ml/min Congestive heart failure Depression Diabetes Diabetic neuropathy, painful High cholesterol Hypertension Morbid obesity NICM (nonischemic cardiomyopathy) Obesity hypoventilation syndrome DANIEL (obstructive sleep apnea) Surgical History Hx of cholecystectomy Social History Social History Household Members: None Household Members Other:: [facility]AND[facility] Housing: Apartment Housing Other:: [facility] Do you presently have visiting nurse or other home services: Yes Alcohol intake: never Patient Tobacco Use Status: Former Tobacco user Tobacco use type: Cigarette Years Smoked: 38 Second Hand Smoke Exposure: No Substance Use Type: Marijuana Advance Directives: Yes Advance Directives on File: Yes Advance Directives Date on File: 12/19/20 service: No Current occupational status: disabled Physical Exam ED Vital Signs: Vital Signs - 24 hr 03/25/22 16:37 03/26/22 00:03 Temperature 97.9 F 98.0 F Pulse Rate 98 98 Respiratory Rate 20 18 Blood Pressure 153/81 H 162/87 H Pulse Oximetry 96 96 Oxygen Delivery Method Room Air Room Air BMI result Body Mass Index 52.1 Const Other: Obese, no distress, frustrated and angry over long wait time General: no acute distress Orientation/consciousness: patient oriented x3 HENMT Head: Yes normal to inspection General nose exam: Normal external nose present Mouth: moist mucous membranes Throat: Yes posterior oropharynx normal, Yes tonsils normal and Yes uvula midline Eyes Eyelids: Yes eyelids normal Conjunctivae: conjunctivae normal Pupils: Equal, round and reactive pupils present Neck Neck: Yes supple Resp Effort & Inspection: normal respiratory effort Auscultation: clear to auscultation bilaterally Cardio Rate: abnormal rate and tachycardic Rhythm: regular rhythm Heart sounds: S1 normal heart sound present, S2 normal heart sound present, no gallops, no murmurs and no rubs GI Inspection: No distended Palpation (GI): Soft to palpation and nontender Auscultation: normal bowel sounds Skin Other: Stasis dermatitis to both lower extremities. Right foot and lower leg appear significantly more erythematous in the left leg, consistent with possible cellulitis, though this may be residual from the recent cellulitis she was treated for General skin exam: other (Warm and dry) Neuro General: patient oriented x3 and CN's II-XI intact bilaterally Cranial nerves: Yes Equal, round and reactive pupils present Extrem Other: Gross pitting edema bilaterally, worse to the right foot than the left Psych Affect: normal affect Attitude: cooperative Course Course Course Narrative: Records were obtained from [facility]. Discharge summary from March 22 revealed the patient had discharge diagnoses of acute on chronic renal failure, acute respiratory failure with hypoxia, anemia, CHF, COPD exacerbation, cellulitis, chest pain, community-acquired pneumonia, elevated D-dimer, hyperkalemia, hypokalemia, pleural effusion, right, suicidal ideation, thrombocytopenia, volume overload. Patient had a workup there including CTA of the chest, ultrasound of the right lower extremity which is negative for any DVT or PE. She was treated with Bumex and then Lasix. She was treated with Unasyn for her right lower extremity cellulitis, last day was March 20. Patient's labs will be rechecked. Ultrasound of the right leg will be done to again rule out DVT. Patient is being signed out to Dr. Narvaez at 220 AM Medical Decision Making Lab Data Result diagrams: 03/26/22 01:48 03/26/22 01:47 Discharge Plan Discharge Clinical Impression: Stasis dermatitis of both legs Prescriptions: No Action gabapentin 400 mg capsule 400 mg PO BID@0900,1200 ipratropium-albuterol 0.5 mg-3 mg(2.5 mg base)/3 mL Solution For Nebulization 3 ml inhalation RQ4H WHILE AWAKE PRN (Reason: Shortness Of Breath/Wheezing) Qty: 1 0RF insulin lispro [Humalog U-100 Insulin] 100 unit/mL Solution See Protocol subcut QIDACHS Qty: 1 0RF Protocol: Insulin Correction Scale Less than or equal to 110 ---- Give (units): 0 111 to 150 Give (units): 0 151 to 200 Give (units): 2 201 to 250 Give (units): 4 251 to 300 Give (units): 6 301 to 350 Give (units): 8 Greater than 350 Give (units): 10 Call MD if Blood Glucose > : 350 fluoxetine 40 mg capsule 40 mg PO DAILY metoprolol succinate 50 mg tablet extended release 24 hr 50 mg PO DAILY aspirin 81 mg tablet,delayed release (DR/EC) 81 mg PO DAILY simvastatin 20 mg tablet 20 mg PO BEDTIME omeprazole 20 mg capsule,delayed release(DR/EC) 20 mg PO BEDTIME Rx Instructions: PT TAKES BEDTIME albuterol sulfate [ProAir HFA] 90 mcg/actuation HFA aerosol inhaler 2 puff inhalation Q4H PRN (Reason: Dyspnea) Flovent HFA 110 mcg/actuation HFA aerosol inhaler 2 puff inhalation BID tizanidine 4 mg Tablet 4 mg PO BEDTIME isosorbide mononitrate 30 mg Tablet Extended Release 24 Hr 30 mg PO DAILY Lantus U-100 Insulin 100 unit/mL solution 80 unit subcut BEDTIME bumetanide 2 mg tablet 1 tab PO DAILY amlodipine 10 mg tablet 1 tab PO DAILY cholecalciferol (vitamin D3) 25 mcg (1,000 unit) capsule 1 cap PO DAILY loperamide 2 mg Tablet 2 mg PO Q4H PRN (Reason: Diarrhea) meclizine 25 mg Tablet 25 mg PO TID PRN (Reason: Dizziness) gabapentin 400 mg capsule 800 mg PO BEDTIME pregabalin 100 mg capsule 1 cap PO BID cephalexin 500 mg capsule 500 mg PO TID Qty: 15 0RF
[2022-03-26 01:58] LABS: Hematocrit 32.9 % (37.0-47.0); Hemoglobin 9.6 g/dl (12.0-16.0); Mean Corpuscular HGB Conc 29.2 g/dl (31.0-35.0); Mean Corpuscular Hemoglobin 26.5 pg (27.0-33.0); Mean Corpuscular Volume 90.9 fL (80.0-98.0); Mean Platelet Volume 9.1 fL (9.4-12.3); Platelet Count 206 X10*3/uL (160-400); Red Blood Count 3.62 X10*6/uL (4.20-5.50); Red Cell Distribution Width 17.7 % (11.0-16.0); White Blood Count 9.3 X10*3/uL (4.8-10.8)
[2022-03-26] MEDS: oxyCODONE HCl Immed Release 5 MG TABLET PO (02:12)
--- NOTE | 2022-03-26 02:20 | ECG_ITS ---
Test Reason : BACK PAIN Blood Pressure : / mmHG Vent. Rate : 103 BPM Atrial Rate : 103 BPM P-R Int : 150 ms QRS Dur : 098 ms QT Int : 396 ms P-R-T Axes : 054 060 064 degrees QTc Int : 518 ms Sinus tachycardia with occasional Premature ventricular complexes Otherwise normal ECG When compared with ECG of 07-JUN-2021 07:07, Premature ventricular complexes are now Present Heart rate has increased Referred By: Maximiliano Ventura Electronically Signed By:KEYONA SANTANA
[2022-03-26 02:37] LABS: Alanine Aminotransferase 9 U/L (0-31); Albumin Level 3.7 g/dL (3.5-5.0); Alkaline Phosphatase 65 U/L (39-117); Anion Gap 17 (12-20); Aspartate Amino Transferase 11 U/L (5-31); Bilirubin Total 0.3 mg/dL (0.0-1.0); Blood Urea Nitrogen 16 mg/dL (9-16); Calcium 8.2 mg/dL (8.4-10.2); Carbon Dioxide 26 mmol/L (22-29); Chloride 107 mmol/L (96-108); Creatinine Clr Calc Pharmacy 79.6; Estimated Glomerular Filt Rate 59; Glucose Random 246 mg/dL (60-115); Magnesium 1.9 mg/dL (1.6-2.6); Sodium 146 mmol/L (135-145); Total Protein 6.6 g/dL (6.5-8.0)
[2022-03-26 02:53] LABS: Lactic Acid 1.3 mmol/L (0.5-2.0)
[2022-03-26 03:40] VITALS: BP 150/74; PULSE 101; RESP 18; O2SAT 96
--- NOTE | 2022-03-26 05:55 | PC.NURSE ---
Triage Nurse assisting with medicating pt per 411 directory assistance operator request. Pt awake, alert, conversing in full and complete sentences without distress noted. Pt educated on medication and given call lopez if future assistance required.
[2022-03-26 06:11] LABS: COVID-19 Test Negative (Negative)
[2022-03-26] MEDS: LORazepam 1 MG TABLET 2 MG PO (06:22)
--- NOTE | 2022-03-26 06:30 | PC.NURSE ---
range master medicated the pt with 2mg PO ativan now per MD Narvaez orders. This RN was walking down the barber near ED bed 2 and 3 when MD Narvaez intercepted and reported the pt to be having a panic attack and advised this RN that he will prescribe/order something to help with a dose now. While walking to triage this RN could hear yelling out and [facility] call lopez flashing, RN entered and found the pt laying on her back leaned over to the left side yelling get this bedpan out, take it out! The RN assisted with removing bedpan from beneath patient and attempted to reposition the pt with an EDT at which point she yelled out Can you just stop you guys are making me crazy and sat straight up due to not being able to lay flat. Pt yelled at staff and requested we leave her alone and requested to remain sitting upright towards the edge of the bed. RN allowed this and then retrieved and medicated the pt per MAR and orders. RN and preceptor made aware
--- NOTE | 2022-03-26 07:32 | PHA.MEDREC ---
Pharmacy Consult ? Medication Reconciliation Pharmacy has completed the medication reconciliation. Reviewed med rec done by nursing
[2022-03-26 08:23] VITALS: BP 141/77; PULSE 103; RESP 15; O2SAT 93
--- NOTE | 2022-03-26 09:30 | PM.EVENT ---
Event Note Date of Service: 03/26/22 Event Note: Attending Attestation: I have personally seen and examined the patient independently (on the date of service as documented by TALI), reviewed the TALI history, exam and?MDM and agree with the assessment and plan as?written with the following additions and/or changes. 61 yo F with multiple medical problems including obesity, DM, CKD stage stage 3, CHF, DANIEL who was [place] [facility] [place] multiple issues including hyperK, cellulitis, respiratory failure. Reports completed treatment for [place] [facility] but RLE pain, swelling, erythema started once again and hence presented to the ED. Given a dose of vancomcyin and admissions requested. Will continue vancomcyin -- renally dosed (pharmacy to guide dosing) and consult ID. Remainder per H&P.
[2022-03-26] MEDS: Aspirin Enteric Coated 81 MG TABLET.DR PO (11:30)
[2022-03-26] MEDS: Gabapentin 400 MG CAPSULE PO (11:31)
[2022-03-26] MEDS: FLUoxetine HCl 20 MG CAPSULE 40 MG PO (11:31)
[2022-03-26] MEDS: Metoprolol Succinate ER 50 MG TAB.ER.24H PO (11:31)
[2022-03-26] MEDS: amLODIPine Besylate 10 MG TABLET PO (11:31)
[2022-03-26] MEDS: Enoxaparin Sodium 40 MG/0.4 ML SYRINGE SUBCUT (11:32)
--- NOTE | 2022-03-26 11:40 | P.HPHOSP_ITS ---
History of Present Illness Date of Service: 03/26/22 Attending physician on admission: Hood Sharma Chief Complaint: rle cellulitis 61 year old female with history of uncontrolled insulin dependent type 2 diabetes with pvd and neuropathy, chronic venous stasis dermatitis, asthma/COPD overlap with chronic respiratory failure on prn home O2, nonischemic cardiomyopathy, htn, hld, and morbid obesity presented to the ED this morning for evaluation of redness and swelling RLE which has been flaring intermittently since 2019 worsening prior to admission to [facility] last week. She was admitted for acute on chronic CHF. She also developed hyperkalemia with temporary dialysis catheter placed but was dialyzed twice with resolution of FELICIA and hyperkalemia. Now on furosemide BID. Required O2 while hospitalized but sob improved and is back to baseline. She was also treated with unasyn while admitted for RLE cellulitis. Not discharged on oral abx. She feels this has not improved. She reports chronic 10/10 pain of the right knee and ankle, but no pain in the banuelos or calf. No leukocytosis. Afebrile. Vitals stable, pt currently on 1L O2 nc O2 sat 93%. Venous duplex negative for DVT. Ankle xray negative for acute osseous abnormality including osteomyelitis or septic arthritis. CXR with some degree of pulmonary congestion, but no effusions. Denies sob, cp. Review of Systems Review of Systems: General: No fevers, malaise, unintentional weight loss Cardiovascular: No chest pain, palpitations, or leg edema Respiratory: No shortness of breath, wheezing, cough GI: No abdominal pain, nausea, vomiting, diarrhea, constipation, melena, hematochezia Neuro: No headaches, weakness, paresthesias Skin: +redness swelling RLE. No rashes. [facility] Medical History (Updated 03/26/22 @ 11:48 by GUADALUPE Christina) Acute on chronic combined systolic and diastolic CHF (congestive heart failure) Asthma Cellulitis of right lower extremity Chronic pain CKD (chronic kidney disease) stage 3, GFR 30-59 ml/min Congestive heart failure Depression Diabetes Diabetic neuropathy, painful High cholesterol Hypertension Morbid obesity NICM (nonischemic cardiomyopathy) Obesity hypoventilation syndrome DANIEL (obstructive sleep apnea) Family History (Updated 03/26/22 @ 11:41 by GUADALUPE Christina) Mother HTN (hypertension) Diabetes CAD (coronary artery disease) Father HTN (hypertension) Diabetes CAD (coronary artery disease) Maternal Grandmother CAD (coronary artery disease) Surgical History Hx of cholecystectomy Social History Household Members: None Household Members Other:: GRANDSON Housing: Apartment Housing Other:: [facility] Do you presently have visiting nurse or other home services: Yes Alcohol intake: never Patient Tobacco Use Status: Former Tobacco user Tobacco use type: Cigarette Years Smoked: 38 Second Hand Smoke Exposure: No Substance Use Type: Marijuana Advance Directives: Yes Advance Directives on File: Yes Advance Directives Date on File: 12/19/20 service: No Current occupational status: disabled Meds Allergies Allergy/AdvReac Type Severity Reaction Status Date / Time acetaminophen [Tylenol] AdvReac Intermediate vommiting, Verified 03/25/22 16:37 itching, hives ibuprofen AdvReac Intermediate vommiting, Verified 03/25/22 16:37 itching morphine AdvReac Intermediate vomiting Verified 03/25/22 16:37 Motrin Allergy Intermediate itching Uncoded 03/25/22 16:37 Active Medications: Current Medications Acetaminophen (Acetaminophen 325 Mg Tablet) 650 mg PO Q6H PRN PRN Reason: Pain, Mild (Pain Scale 1-3) Amlodipine Besylate (Amlodipine Besylate 10 Mg Tablet) 10 mg PO DAILY [facility]; Protocol Aspirin (Aspirin Enteric Coated 81 Mg Tablet.Dr) 81 mg PO DAILY [facility] Atorvastatin Calcium (Atorvastatin Calcium 10 Mg Tablet) 10 mg PO BEDTIME [facility] Bumetanide (Bumetanide 1 Mg Tablet) 2 mg PO DAILY [facility]; Protocol Enoxaparin Sodium (Enoxaparin Sodium 40 Mg/0.4 Ml Syringe) 40 mg SUBCUT Q24H [facility] Fluoxetine HCl (Fluoxetine Hcl 20 Mg Capsule) 40 mg PO DAILY [facility] Fluticasone Propionate (Fluticasone Propionate 100 Mcg Blst.W.Dev) 2 puff INHALE RBID [facility] Gabapentin (Gabapentin 400 Mg Capsule) 800 mg PO BEDTIME [facility] Gabapentin (Gabapentin 400 Mg Capsule) 400 mg PO BID@0900,1200 [facility] Haloperidol (Haloperidol 1 Mg Tablet) 2 mg PO BEDTIME [facility] Vancomycin HCl 750 mg/ Sodium (Chloride) 265 mls @ 265 mls/hr IV Q12H [facility] Insulin Glargine (Insulin Glargine,Hum.Rec.Anlog 100 Unit/Ml 10 Ml Vial) 50 unit SUBCUT BEDTIME [facility] Insulin Human Lispro (Insulin Lispro 100 Unit/Ml 3 Ml Vial) 0 unit SUBCUT QIDACHS [facility]; Protocol Isosorbide Mononitrate (Isosorbide Mononitrate 30 Mg Tab.Er.24h) 30 mg PO DAILY [facility]; Protocol Meclizine HCl (Meclizine Hcl 25 Mg Tablet) 25 mg PO TID PRN PRN Reason: Dizziness Metoprolol Succinate (Metoprolol Succinate Er 50 Mg Tab.Er.24h) 50 mg PO DAILY [facility]; Protocol Omeprazole (Omeprazole 20 Mg Capsule.Dr) 20 mg PO BEDTIME [facility] Pharmacy Consult (Consult Rx Perform Med Rec) 1 each MISCELLANE ONCE PRN PRN Reason: Consult order Pharmacy Consult (Consult Rx Vancomycin Dosing) 1 each MISCELLANE DAILY PRN PRN Reason: Consult order Pregabalin (Pregabalin 100 Mg Capsule) 100 mg PO BID [facility] Sodium Chloride (0.9 % Sodium Chloride Flush 3 Ml Syringe) 3 ml IVFLUSH QSHIFT [facility] Tizanidine HCl (Tizanidine Hcl 4 Mg Tablet) 4 mg PO BEDTIME [facility] Vitamin D (Cholecalciferol (Vitamin D3) 25 Mcg Tablet) 25 mcg PO DAILY [facility] Home Medications Medication Instructions Recorded Confirmed Last Taken Type albuterol sulfate 90 mcg/actuation 2 puff inhalation Q4H PRN Dyspnea 11/23/20 03/26/22 1 Day Ago History aerosol inhaler (ProAir HFA) ~03/31/21 aspirin 81 mg tablet,delayed 81 mg PO DAILY 11/23/20 03/26/22 1 Day Ago History release ~03/31/21 fluoxetine 40 mg capsule 40 mg PO DAILY 11/23/20 03/26/22 1 Day Ago History ~03/31/21 fluticasone propionate 110 2 puff inhalation BID 11/23/20 03/26/22 1 Day Ago History mcg/actuation HFA aerosol inhaler ~03/31/21 (Flovent HFA) metoprolol succinate 50 mg 50 mg PO DAILY 11/23/20 03/26/22 1 Day Ago History tablet,extended release 24 hr ~03/31/21 omeprazole 20 mg capsule,delayed 20 mg PO BEDTIME 11/23/20 03/26/22 1 Day Ago History release ~03/31/21 simvastatin 20 mg tablet 20 mg PO BEDTIME 11/23/20 03/26/22 1 Day Ago History ~03/31/21 isosorbide mononitrate 30 mg 30 mg PO DAILY 12/11/20 03/26/22 1 Day Ago History tablet,extended release 24 hr ~03/31/21 tizanidine 4 mg tablet 4 mg PO BEDTIME 12/11/20 03/26/22 1 Day Ago History ~03/31/21 gabapentin 400 mg capsule 400 mg PO BID@0900,1200 01/09/21 03/26/22 1 Day Ago History ~03/31/21 amlodipine 10 mg tablet 1 tab PO DAILY 06/07/21 03/26/22 Unknown History bumetanide 2 mg tablet 1 tab PO DAILY 06/07/21 03/26/22 Unknown History cholecalciferol (vitamin D3) 25 1 cap PO DAILY 06/07/21 03/26/22 Unknown History mcg (1,000 unit) capsule gabapentin 400 mg capsule 800 mg PO BEDTIME 06/07/21 03/26/22 Unknown History insulin glargine 100 unit/mL 80 unit subcut BEDTIME 06/07/21 03/26/22 Unknown History subcutaneous solution (Lantus U-100 Insulin) meclizine 25 mg tablet 25 mg PO TID PRN Dizziness 06/07/21 03/26/22 Unknown History pregabalin 100 mg capsule 1 cap PO BID 06/08/21 03/26/22 Unknown History furosemide 20 mg tablet 1 tab PO DAILY 03/26/22 03/26/22 Unknown History haloperidol 2 mg tablet 1 tab PO BEDTIME 03/26/22 03/26/22 Unknown History Physical Exam Vital Signs and Narrative: Vital Signs: Last Vital Signs Temp 98.0 F 03/26/22 00:03 Pulse 103 H 03/26/22 08:23 Resp 15 03/26/22 08:23 BP 141/77 H 03/26/22 08:23 Pulse Ox 93 03/26/22 08:23 O2 Del Method 03/26/22 08:23 O2 Flow Rate 1 03/26/22 08:23 BMI result Body Mass Index 52.1 Constitutional - Awake and Alert, No apparent distress Eyes - PERRLA, EOMI Cardiovascular - S1S2, RRR, 1+ edema ble Respiratory - Normal lung expansion, Normal respiratory effort, No respiratory distress, CTA bilaterally Gastrointestinal - NT / ND; +BS; No rebound or guarding Extremities - no calf tenderness bilaterally, swelling and tension right lower leg Musculoskeletal - Normal inspection, normal ROM Skin - Warm/Dry.Slightly thickened skin with erythema right lower leg and foot- see photo Neurological - Alert & oriented x3, 5/5 strength BLE Psychological - Appropriate affect Results Labs CBC and Chem 7: 03/26/22 01:48 03/26/22 01:47 Labs: Laboratory Results - last 24 hr 03/26/22 03/26/22 03/26/22 01:47 01:48 02:35 MCV 90.9 MCH 26.5 L MCHC 29.2 L RDW 17.7 H Plt Count 206 D MPV 9.1 L Absolute Nucleated RBC 0.000 Nucleated RBC % (auto) 0.0 Anion Gap 17 Estim Creat Clear Calc 79.6 Estimated GFR 59 Random Glucose 246 H Lactic Acid 1.3 Calcium 8.2 L Magnesium 1.9 Total Bilirubin 0.3 AST 11 ALT 9 Alkaline Phosphatase 65 Total Protein 6.6 Albumin 3.7 COVID-19 ([facility]) COVID-19 Clin Com 03/26/22 05:49 MCV MCH MCHC RDW Plt Count MPV Absolute Nucleated RBC Nucleated RBC % (auto) Anion Gap Estim Creat Clear Calc Estimated GFR Random Glucose Lactic Acid Calcium Magnesium Total Bilirubin AST ALT Alkaline Phosphatase Total Protein Albumin COVID-19 ([facility]) Negative COVID-19 Clin Com See Note Imaging Radiologist's Impressions: Impressions Chest X-Ray 03/26/22 04:50 IMPRESSION: Prominent central vasculature suggesting a degree of congestion. Enlarged cardiac silhouette. Venous Duplex 03/26/22 09:50 IMPRESSION: No deep vein thrombosis in the visualized veins of the right lower extremity. The peroneal and posterior tibial veins in the calf were not visualized. Ankle X-Ray 03/26/22 10:00 IMPRESSION: * No acute osseous injury at the right ankle. * There are no radiographic findings to suggest presence of septic arthritis or osteomyelitis. * Nonspecific diffuse soft tissue swelling of the examined lower extremity, ankle and foot. Assessment and Plan (1) Cellulitis of right lower extremity: Status: Acute Plan 61 year old female with history of 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 1- Acute recurrent RLE cellulitis- intermittent recurrence ongoing since 2019. Treated at [facility] with IV unasyn discharged 4 days ago, no oral abx -H/o chronic venous stasis dermatitis -Given vanco IV in ED. Continue vancomycin -ID consult placed -Venous deplex negative for DVT. Xray R ankle neg for osseous abnormality including osteomyelitis 2-Insulin dependent Type 2 diabetes- uncontrolled -POC glucose -Lantus 50 units with humalog SSI -Diabetic diet. Needs diabetic diet education, consult placed. Drinking juice and eating variation of pasta during interview 4-BQS-ubmzftmpvt controlled -Continue amlodipine, bumex, isosorbide. Hold lasix 4-HLD -Continue simvastatin 8-Vqu-aedoxsss cardiomyopathy- stable -Continue home meds 6-HFrEF- stable -Recent admission to [facility]. Echo on 03/10 with grade 2 diastolic dysfunction with EF 25-35%. Discharged on lasix, but also taking bumex? Hold furosemide for now, continue bumex -CXR with some vascular congestion. Pt denies sob 7-Asthma/COPD with chronic respiratory failure on prn home O2 -Duonebs prn 8-Depression/anxiety with aggitation -Continue fluoxetine, haldol 9-Diabetic neuropathy -Continue lyrica 10-Morbid obesity -low calorie diabetic diet. Nutrition consulted DVT prophylaxis- lovenox Full code Quality Stroke Does the patient have a stroke diagnosis?: No VTE Prior VTE?: No VTE Risk Level:: Medical - moderate - high VTE Device Contraindication: Treatment Not Indicated VTE Drug Contraindication: N/A - Med Ordered
[2022-03-26] MEDS: Isosorbide Mononitrate 30 MG TAB.ER.24H PO (12:02)
[2022-03-26 12:12] LABS: Glucose, Whole Blood 201 mg/dL (60-115)
[2022-03-26] MEDS: Insulin Lispro 100 UNIT/ML 3 ML VIAL SUBCUT ×3 (12:35→21:43)
[2022-03-26 18:01] LABS: Glucose, Whole Blood 236 mg/dL (60-115)
[2022-03-26] MEDS: vancomycin HCL 750 MG in 0.9 % Sodium Chloride 250 ML 265 MG IV (18:36)
[2022-03-26] MEDS: LORazepam 0.5 MG TABLET PO (19:28)
[2022-03-26 20:51] VITALS: BP 137/64; PULSE 98; O2SAT 98
--- NOTE | 2022-03-26 21:17 | PC.NURSE ---
PATIENT WAS ASSISTED UNTO BEDSIDE COMMODE BY THIS PCT ,PATIENT VOID LARGE AMOUNT OF URINE.
[2022-03-26 21:25] LABS: Glucose, Whole Blood 228 mg/dL (60-115)
[2022-03-26] MEDS: Omeprazole 20 MG CAPSULE.DR PO (21:41)
[2022-03-26] MEDS: TiZANidine HCL 4 MG TABLET PO (21:41)
[2022-03-26] MEDS: Pregabalin 100 MG CAPSULE PO (21:42)
[2022-03-26] MEDS: HaloperidoL 1 MG TABLET 2 MG PO (21:42)
[2022-03-26] MEDS: Gabapentin 400 MG CAPSULE 800 MG PO (21:42)
[2022-03-26] MEDS: Insulin Glargine,Hum.rec.anlog 100 UNIT/ML 10 ML VIAL 50 UNIT SUBCUT (21:42)
[2022-03-26] MEDS: Atorvastatin Calcium 10 MG TABLET PO (21:42)
--- NOTE | 2022-03-26 22:33 | MHC.CM.PN ---
Addendum entered by Ruthy Arndt 03/26/22 22:48: No referrals placed for VNA. Addendum entered by Ruthy Arndt 03/26/22 22:43: RN aware of patient complaint of Panic Attack. Pt had recently received Ativan. CM checked in on patient. Much calmer at present. Having juice and snack. Original Note: MODANGELO 03/26. CM met with very anxious patient, stating she is having a panic attack. States they started when the rehab she was in stopped her prozac. Pt is now taking her prozac. Resp easy and regular. Pt sitting on edge of bed. Pt calmed with touch and with being able to talk to someone. Pt lives alone, but states she has been staying with a friend. 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 Daughter is helping her with [employer]. HCP on file HCP/daughter Tess Mueller ([phone]). Pt uses a cane/walker and DM supplies. MOLST on file-full code. Pt is unvaccinated, as she is afraid of the vaccine. Pt tells CM she gets a flu shot and pneumonia vaccines. CM explainedthat if she gets those vaccinations, she should consider the Covid vaccine, as she really does not want Covid with her other pre-existing conditions. Pt states she has some difficulty ambulating, but will not go to rehab again. Was recently at [facility]. Needs PT evaluation. Pt is agreeable to home services. D/C plan: Home with / VNA/PT. Pt will arrange transportation. CM to follow for d/c needs.
[2022-03-26 23:20] VITALS: BP 120/62; PULSE 90; RESP 20; TEMP 36.4; O2SAT 98
[2022-03-27] VITALS (9 sets, daily range): BP systolic 115–133; BP diastolic 61–104; PULSE 79–113; RESP 16–28; TEMP 36.4–36.8; O2SAT 90–96; BMI 55.8
[2022-03-27] MEDS: 0.9 % Sodium Chloride Flush 3 ML SYRINGE IVFLUSH ×3 (02:48→23:41)
[2022-03-27] MEDS: vancomycin HCL 750 MG in 0.9 % Sodium Chloride 250 ML 265 MG IV ×2 (05:43→19:37)
[2022-03-27 07:08] LABS: Hematocrit 28.1 % (37.0-47.0); Hemoglobin 8.1 g/dl (12.0-16.0); Mean Corpuscular HGB Conc 28.8 g/dl (31.0-35.0); Mean Corpuscular Hemoglobin 27.3 pg (27.0-33.0); Mean Corpuscular Volume 94.6 fL (80.0-98.0); Platelet Count 174 X10*3/uL (160-400); Red Blood Count 2.97 X10*6/uL (4.20-5.50); Red Cell Distribution Width 17.6 % (11.0-16.0); White Blood Count 7.1 X10*3/uL (4.8-10.8)
[2022-03-27 07:21] LABS: Creatinine Clr Calc Pharmacy 60.2; Estimated Glomerular Filt Rate 40
[2022-03-27 07:22] LABS: Anion Gap 15 (12-20); Blood Urea Nitrogen 28 mg/dL (9-16); Calcium 7.7 mg/dL (8.4-10.2); Carbon Dioxide 25 mmol/L (22-29); Chloride 110 mmol/L (96-108); Creatinine Clr Calc Pharmacy 61.1; Estimated Glomerular Filt Rate 41; Glucose Random 245 mg/dL (60-115); Potassium 4.6 mmol/L (3.3-5.1); Sodium 145 mmol/L (135-145)
[2022-03-27 07:58] LABS: Glucose, Whole Blood 221 mg/dL (60-115)
[2022-03-27] MEDS: Insulin Lispro 100 UNIT/ML 3 ML VIAL SUBCUT ×4 (08:51→23:38)
[2022-03-27] MEDS: Enoxaparin Sodium 40 MG/0.4 ML SYRINGE SUBCUT (08:51)
--- NOTE | 2022-03-27 09:14 | HE.PHANOTE ---
RE VANCO PATIENT SCR INCREASE > 30% TODAY. TROUGH IS DUE @ 1600. CONSIDER INCREASING FREQUENCY TO 24 HOURS. PER INSIGHT NEW AUC 661, TROUGH IS 22.4. NO NEED TO ADJUST NOW SINCE DOSE IS ALREADY GIVEN. WILL WAIT FOR TROUGH Thanks Paige
--- NOTE | 2022-03-27 11:07 | P.PNIM_ITS ---
Subjective Subjective Date of Service: 03/27/22 Interval History: Seen and examined this morning Follow-up for right lower extremity cellulitis Patient arousable with painful stimuli, falls back to sleep quickly. angry when awakened, asking me to leave, does not want answer questions only wants to sleep right now. Will not allow for lung exam. Unable to obtain full ROS as patient is sleepy, also not willing to answer questions Physical Exam Vital Signs: Vital Signs: Last Vital Signs Temp 98.0 F 03/27/22 07:58 Pulse 81 03/27/22 07:58 Resp 24 H 03/27/22 07:58 BP 125/74 03/27/22 07:58 Pulse Ox 93 03/27/22 07:58 O2 Del Method 03/27/22 04:30 O2 Flow Rate 2 03/27/22 04:30 BMI result Body Mass Index 55.8 Const: Other: arousable to painful stimuli; falls back to sleep quickly; is able to answer questions briefly while awake General: no acute distress and lethargic Nutritional Appearance: obese Orientation/consciousness: lethargic Resp: Effort & Inspection: normal respiratory effort Cardio: Rate: regular rate Heart sounds: S1 normal heart sound present and S2 normal heart sound present GI: Inspection: No distended and Yes obesity Palpation (GI): Soft to p alpation Skin: Other: right lower extremity erythema Neuro: Other: sleepy - declines to answer questions - unable to assess orientation Objective Data Active Medications Acetaminophen (Acetaminophen 325 Mg Tablet) 650 mg PO Q6H PRN PRN Reason: Pain, Mild (Pain Scale 1-3) Amlodipine Besylate (Amlodipine Besylate 10 Mg Tablet) 10 mg PO DAILY [facility]; Protocol Last Admin: 03/26/22 11:31 Dose: 10 mg Documented By: BRODY Aspirin (Aspirin Enteric Coated 81 Mg Tablet.) 81 mg PO DAILY [facility] Last Admin: 03/26/22 11:30 Dose: 81 mg Documented By: BRODY Atorvastatin Calcium (Atorvastatin Calcium 10 Mg Tablet) 10 mg PO BEDTIME [facility] Last Admin: 03/26/22 21:42 Dose: 10 mg Documented By: JOSEFINA Enoxaparin Sodium (Enoxaparin Sodium 40 Mg/0.4 Ml Syringe) 40 mg SUBCUT Q24H [facility] Last Admin: 03/27/22 08:51 Dose: 40 mg Documented By: COLLEEN Fluoxetine HCl (Fluoxetine Hcl 20 Mg Capsule) 40 mg PO DAILY [facility] Last Admin: 03/26/22 11:31 Dose: 40 mg Documented By: BRODY Fluticasone Propionate (Fluticasone Propionate 100 Mcg Blst.W.Dev) 2 puff INHALE RBID [facility] Last Admin: 03/27/22 07:37 Dose: Not Given Documented By: TIFFANIE Non-Admin Reason: Patient Refused Furosemide (Furosemide 20 Mg Tablet) 20 mg PO DAILY [facility]; Protocol Gabapentin (Gabapentin 400 Mg Capsule) 800 mg PO BEDTIME [facility] Last Admin: 03/26/22 21:42 Dose: 800 mg Documented By: JOSEFINA Gabapentin (Gabapentin 400 Mg Capsule) 400 mg PO BID@0900,1200 [facility] Last Admin: 03/26/22 11:31 Dose: 400 mg Documented By: BRODY Haloperidol (Haloperidol 1 Mg Tablet) 2 mg PO BEDTIME [facility] Last Admin: 03/26/22 21:42 Dose: 2 mg Documented By: JOSEFINA Vancomycin HCl 750 mg/ Sodium (Chloride) 265 mls @ 265 mls/hr IV Q12H [facility] Last Infusion: 03/27/22 06:46 Dose: 0 mls/hr Documented By: PETEY Insulin Glargine (Insulin Glargine,Hum.Rec.Anlog 100 Unit/Ml 10 Ml Vial) 50 unit SUBCUT BEDTIME [facility] Last Admin: 03/26/22 21:42 Dose: 50 unit Documented By: JOSEFINA Insulin Human Lispro (Insulin Lispro 100 Unit/Ml 3 Ml Vial) 0 unit SUBCUT QIDACHS [facility]; Protocol Last Admin: 03/27/22 08:51 Dose: 4 unit Documented By: COLLEEN Isosorbide Mononitrate (Isosorbide Mononitrate 30 Mg Tab.Er.24h) 30 mg PO DAILY [facility]; Protocol Last Admin: 03/26/22 12:02 Dose: 30 mg Documented By: BRODY Meclizine HCl (Meclizine Hcl 25 Mg Tablet) 25 mg PO TID PRN PRN Reason: Dizziness Metoprolol Succinate (Metoprolol Succinate Er 50 Mg Tab.Er.24h) 50 mg PO DAILY [facility]; Protocol Last Admin: 03/26/22 11:31 Dose: 50 mg Documented By: BRODY Omeprazole (Omeprazole 20 Mg Capsule.) 20 mg PO BEDTIME [facility] Last Admin: 03/26/22 21:41 Dose: 20 mg Documented By: JOSEFINA Pharmacy Consult (Consult Rx Perform Med Rec) 1 each MISCELLANE ONCE PRN PRN Reason: Consult order Pharmacy Consult (Consult Rx Vancomycin Dosing) 1 each MISCELLANE DAILY PRN PRN Reason: Consult order Pregabalin (Pregabalin 100 Mg Capsule) 100 mg PO BID [facility] Last Admin: 03/26/22 21:42 Dose: 100 mg Documented By: JOSEFINA Sodium Chloride (0.9 % Sodium Chloride Flush 3 Ml Syringe) 3 ml IVFLUSH QSHIFT [facility] Last Admin: 03/27/22 10:21 Dose: Not Given Documented By: COLLEEN Non-Admin Reason: Patient Refused Tizanidine HCl (Tizanidine Hcl 4 Mg Tablet) 4 mg PO BEDTIME [facility] Last Admin: 03/26/22 21:41 Dose: 4 mg Documented By: JOSEFINA Vitamin D (Cholecalciferol (Vitamin D3) 25 Mcg Tablet) 25 mcg PO DAILY [facility] Labs CBC & Chem 7: 03/27/22 06:14 03/27/22 06:14 Labs: Laboratory Results - last 24 hr 03/26/22 03/26/22 03/26/22 12:03 17:50 20:56 MCV MCH MCHC RDW Plt Count MPV Absolute Nucleated RBC Nucleated RBC % (auto) Anion Gap Estim Creat Clear Calc Estimated GFR POC Glucose 201 H 236 H 228 H Random Glucose Calcium 03/27/22 03/27/22 03/27/22 06:14 06:14 06:14 MCV 94.6 MCH 27.3 MCHC 28.8 L RDW 17.6 H Plt Count 174 MPV 10.0 Absolute Nucleated RBC 0.000 Nucleated RBC % (auto) 0.0 Anion Gap 15 Estim Creat Clear Calc 61.1 60.2 Estimated GFR 41 40 POC Glucose Random Glucose 245 H Calcium 7.7 L D 03/27/22 07:54 MCV MCH MCHC RDW Plt Count MPV Absolute Nucleated RBC Nucleated RBC % (auto) Anion Gap Estim Creat Clear Calc Estimated GFR POC Glucose 221 H Random Glucose Calcium Assessment and Plan (1) Cellulitis of right lower extremity: Status: Acute (2) Stasis dermatitis of both legs: Status: Acute (3) Morbid obesity: Status: Acute Plan 61 year old female with history of 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 Acute recurrent RLE cellulitis- intermittent recurrence ongoing since 2019. Treated at [facility] with IV unasyn discharged 4 days ago, no oral abx H/o chronic venous stasis dermatitis Venous deplex negative for DVT. Xray R ankle neg for osseous abnormality including osteomyelitis -Continue vancomycin -ID consult pending Lethargy nurse reports she didn't sleep overnight, given h/o hypercarbic respiratory failure will obtain VBG -resume CPAP -if co2 elevated will consult pulmonology Acute on chronic normocytic anemia will review records from [facility] -follow CBC -check iron studies Insulin dependent Type 2 diabetes- uncontrolled -continue ADA diet -continue home dose of Lantus 50 units -continue SSI HTN- -Continue amlodipine, isosorbide HLD -Continue simvastatin Non-ischemic cardiomyopathy- stable - per discharge note from [facility] patient was changed from Bumex to low dose Lasix - will stop bumex and change to lasix - follow renal function HFrEF- stable -Recent admission to [facility]. Echo on 03/10 with grade 2 diastolic dysfunction with EF 25-35%. -CXR with some vascular congestion. Pt denies sob -resume Lasix, discontinue Bumex Asthma/COPD with chronic respiratory failure on prn home O2 -resume nocturnal cpap -Duonebs prn Depression/anxiety with aggitation -Continue fluoxetine, haldol Diabetic neuropathy -Continue lyrica Morbid obesity BMI 55.8 contributing to chronic respiratory issues -low calorie diabetic diet DVT prophylaxis- lovenox attending - dr. Sharma Full code patient requires ongoing inpatient hospitalization due to treatment of right low er extremity cellulitis, workup for lethargy and possible hypercarbic respiratory failure Quality Stroke Does the patient have a stroke diagnosis?: No VTE Prior VTE?: No VTE Risk Level:: Medical - moderate - high VTE Device Contraindication: Treatment Not Indicated VTE Drug Contraindication: N/A - Med Ordered
[2022-03-27 11:23] LABS: Glucose, Whole Blood 182 mg/dL (60-115)
[2022-03-27 13:02] LABS: Venous Blood Gas Refer to POC result
[2022-03-27 13:09] LABS: VBG Base Excess 0.4 mmol/L; VBG HCO3 27 mmol/L (22-26); VBG pCO2 53 mmHg; VBG pO2 134 mmHg
[2022-03-27 13:22] LABS: Iron 52 mcg/dL (30-160); Percent Iron Saturation 19 % (15-50); Total Iron Binding Capacity 272 mcg/dL (228-428); Unsaturated Iron Binding 220 ug/dL
[2022-03-27 13:40] LABS: Ferritin 154 ng/mL (10-250)
--- NOTE | 2022-03-27 14:16 | MHC.CLN ---
RE: CONSULT SEE TEACHING RECORD FOR DETAILS PT DECLINED DM TEACHING DIET RX: 1800DM-RECOMMEND ADDING 2GM NA R/T DX CHF AND CKD DM DIET APPROPRIATE AND WILL PROMOTE SLOW WT LOSS WILL PROVIDE SUPPORT NEEDED
[2022-03-27 14:43] LABS: Folate 6.6 ng/mL (> or = 4.0); Vitamin B12 243 pg/mL (200-900)
[2022-03-27] MEDS: Albuterol/Iprat 2.5/0.5MG 3 ML AMPUL.NEB INHALE (16:13)
[2022-03-27] MEDS: TiZANidine HCL 4 MG TABLET PO (16:49)
[2022-03-27 16:56] LABS: Glucose, Whole Blood 169 mg/dL (60-115)
[2022-03-27 17:13] LABS: Vancomycin Trough 15.9 mcg/mL (10.0-20.0)
--- NOTE | 2022-03-27 17:43 | HE.PHANOTE ---
vancomycin addendum level after loading dose and two 750 mg doses is 15.9, predicted AUC is 478. Her scr did increase, so we will need to continue to monitor but for now keep same dose, will order another level after 2 doses
[2022-03-27] MEDS: Furosemide 40 MG/4 ML VIAL IVPUSH (18:04)
[2022-03-27] MEDS: Fluticasone Propionate 100 MCG BLST.W.DEV 2 PUFF INHALE (20:43)
[2022-03-27 23:10] LABS: Glucose, Whole Blood 212 mg/dL (60-115)
[2022-03-27] MEDS: Atorvastatin Calcium 10 MG TABLET PO (23:17)
[2022-03-27] MEDS: Pregabalin 100 MG CAPSULE PO (23:17)
[2022-03-27] MEDS: hydrOXYzine HCL 25 MG TABLET PO (23:17)
[2022-03-27] MEDS: Gabapentin 400 MG CAPSULE 800 MG PO (23:18)
[2022-03-27] MEDS: Omeprazole 20 MG CAPSULE.DR PO (23:18)
[2022-03-27] MEDS: HaloperidoL 1 MG TABLET 2 MG PO (23:18)
[2022-03-27] MEDS: Insulin Glargine,Hum.rec.anlog 100 UNIT/ML 10 ML VIAL 50 UNIT SUBCUT (23:21)
--- NOTE | 2022-03-28 01:42 | PC.NURSE ---
Patient with episodes of yelling out help me stating panic attack. Currently yelling about ten minutes for just an android health education specialist which we do not have while insisting to be naked and insists on sitting on commode. Pt does not stop despite staff asking or trying to talk to her. Was on phone with someone for about hour venting loudly and occasionally yelling in between. Once off phone continually yells to get needs met stating she needs help for panic attack. Has been yelling for approx half hour without success to calm her and disrupting other patient's sleep. She will not stop regardless of us telling her this. Refuses to lower voice. notified of behavior.
[2022-03-28 03:07] VITALS: BP 119/88; PULSE 105; RESP 20; TEMP 37.1; O2SAT 97
--- NOTE | 2022-03-28 03:26 | PC.NURSE ---
Patient c/o left arm numbness at 1999. MD notified of this and no other apparent stroke symptoms. Patient stated it has been like that all day.
[2022-03-28] MEDS: oxyCODONE HCl Immed Release 5 MG TABLET PO (04:21)
[2022-03-28] MEDS: vancomycin HCL 750 MG in 0.9 % Sodium Chloride 250 ML 265 MG IV ×2 (05:08→16:46)
[2022-03-28 06:40] LABS: Hemoglobin 8.7 g/dl (12.0-16.0); Mean Corpuscular HGB Conc 28.1 g/dl (31.0-35.0); Mean Corpuscular Hemoglobin 26.8 pg (27.0-33.0); Mean Corpuscular Volume 95.4 fL (80.0-98.0); Mean Platelet Volume 9.3 fL (9.4-12.3); Platelet Count 176 X10*3/uL (160-400); Red Blood Count 3.25 X10*6/uL (4.20-5.50); Red Cell Distribution Width 17.3 % (11.0-16.0)
[2022-03-28 07:02] LABS: Anion Gap 15 (12-20); Blood Urea Nitrogen 38 mg/dL (9-16); Carbon Dioxide 25 mmol/L (22-29); Chloride 109 mmol/L (96-108); Creatinine Clr Calc Pharmacy 60.2; Estimated Glomerular Filt Rate 40; Glucose Random 322 mg/dL (60-115); Sodium 144 mmol/L (135-145)
[2022-03-28 07:08] VITALS: BP 149/57; PULSE 78; RESP 16; TEMP 36.9; O2SAT 100
[2022-03-28 07:19] VITALS: PULSE 104; RESP 20; O2SAT 95
[2022-03-28] MEDS: Fluticasone Propionate 100 MCG BLST.W.DEV 2 PUFF INHALE (07:19)
[2022-03-28 07:21] LABS: Glucose, Whole Blood 294 mg/dL (60-115)
[2022-03-28] MEDS: Insulin Lispro 100 UNIT/ML 3 ML VIAL SUBCUT ×4 (08:16→22:42)
[2022-03-28] MEDS: Metoprolol Succinate ER 50 MG TAB.ER.24H PO (08:17)
[2022-03-28] MEDS: 0.9 % Sodium Chloride Flush 3 ML SYRINGE IVFLUSH ×2 (08:17→16:46)
[2022-03-28] MEDS: Isosorbide Mononitrate 30 MG TAB.ER.24H PO (08:17)
[2022-03-28] MEDS: Cholecalciferol (Vitamin D3) 25 MCG TABLET PO (08:17)
[2022-03-28] MEDS: Pregabalin 100 MG CAPSULE PO ×2 (08:17→22:40)
[2022-03-28] MEDS: Furosemide 20 MG TABLET PO (08:17)
[2022-03-28] MEDS: amLODIPine Besylate 10 MG TABLET PO (08:18)
[2022-03-28] MEDS: Aspirin Enteric Coated 81 MG TABLET.DR PO (08:18)
[2022-03-28] MEDS: Gabapentin 400 MG CAPSULE PO ×2 (08:18→13:05)
[2022-03-28] MEDS: FLUoxetine HCl 20 MG CAPSULE 40 MG PO (08:18)
[2022-03-28] MEDS: Enoxaparin Sodium 40 MG/0.4 ML SYRINGE SUBCUT (08:18)
--- NOTE | 2022-03-28 09:07 | HE.PHANOTE ---
GRECIA FERNANDEZ CONTINUE CURRENT DOSE, NEXT TROUGH DUE 03/28 @1600
[2022-03-28 11:30] VITALS: BP 126/75; PULSE 96; RESP 20; TEMP 37.2; O2SAT 98
[2022-03-28 11:37] LABS: Glucose, Whole Blood 292 mg/dL (60-115)
--- NOTE | 2022-03-28 13:44 | W.PM.IDCN ---
History of Present Illness Data of Consult Service Date: 03/28/22 Requesting physician: Bernadette Tucker Primary Care Provider: Tavo Huber MD HPI Reason for consult: RLE swelling,erythema She presents with pain and erythema RLE. She has this chronically and has swelling dorsum of foot. She has been on Unasyn at [facility] and finished on 03/20/2022. She was recently at [facility] with CHF as well and on dialysis. Review of Systems Review of Systems: Yes all other systems are reviewed and are negative [facility] Past Medical History Medical History Acute on chronic combined systolic and diastolic CHF (congestive heart failure) Asthma Cellulitis of right lower extremity Chronic pain CKD (chronic kidney disease) stage 3, GFR 30-59 ml/min Congestive heart failure Depression Diabetes Diabetic neuropathy, painful High cholesterol Hypertension Morbid obesity NICM (nonischemic cardiomyopathy) Obesity hypoventilation syndrome DANIEL (obstructive sleep apnea) Family History Family History Mother HTN (hypertension) Diabetes CAD (coronary artery disease) Father HTN (hypertension) Diabetes CAD (coronary artery disease) Maternal Grandmother CAD (coronary artery disease) Family history: reviewed and not pertinent Surgical History Surgical History Hx of cholecystectomy Social History Social History Household Members: None Household Members Other:: GRANDSON Housing: Apartment Housing Other:: [facility] Do you presently have visiting nurse or other home services: Yes Alcohol intake: never Patient Tobacco Use Status: Former Tobacco user Tobacco use type: Cigarette Years Smoked: 38 Second Hand Smoke Exposure: No Use of substances other than those prescribed or required for medical reasons: No Substance Use Type: Marijuana Currently Displaying Signs/Symptoms of Drug Intoxication Withdrawal: No Have you been hit, kicked, punched, or otherwise hurt by someone within the past year? If so, by whom?: No Do you feel safe in your current relationship?: No Current Relationship Is there a partner from a previous relationship who is making you feel unsafe now?: No Are you made to feel afraid or neglected: No Advance Directives: Yes Advance Directives on File: Yes Advance Directives Date on File: 12/19/20 Do you have thoughts of harming others: None Do you have a plan to hurt others: No Plan Recently lost weight without trying: No Nutrition Risks: No Nutritional Risk Patient : No : No Poor oral hygiene: No service: No Current occupational status: disabled Meds Allergies Allergy/AdvReac Type Severity Reaction Status Date / Time acetaminophen [Tylenol] AdvReac Intermediate vommiting, Verified 03/25/22 16:37 itching, hives ibuprofen AdvReac Intermediate vommiting, Verified 03/25/22 16:37 itching morphine AdvReac Intermediate vomiting Verified 03/25/22 16:37 Motrin Allergy Intermediate itching Uncoded 03/25/22 16:37 Active Medications: Current Medications Acetaminophen (Acetaminophen 325 Mg Tablet) 650 mg PO Q6H PRN PRN Reason: Pain, Mild (Pain Scale 1-3) Albuterol/Ipratropium (Albuterol/Iprat 2.5/0.5mg 3 Ml Ampul.Neb) 3 ml INHALE RQ6H PRN PRN Reason: Shortness of Breath/Wheezing Last Admin: 03/27/22 16:13 Dose: 3 ml Amlodipine Besylate (Amlodipine Besylate 10 Mg Tablet) 10 mg PO DAILY [facility]; Protocol Last Admin: 03/28/22 08:18 Dose: 10 mg Aspirin (Aspirin Enteric Coated 81 Mg Tablet.Dr) 81 mg PO DAILY [facility] Last Admin: 03/28/22 08:18 Dose: 81 mg Atorvastatin Calcium (Atorvastatin Calcium 10 Mg Tablet) 10 mg PO BEDTIME [facility] Last Admin: 03/27/22 23:17 Dose: 10 mg Enoxaparin Sodium (Enoxaparin Sodium 40 Mg/0.4 Ml Syringe) 40 mg SUBCUT Q24H [facility] Last Admin: 03/28/22 08:18 Dose: 40 mg Fluoxetine HCl (Fluoxetine Hcl 20 Mg Capsule) 40 mg PO DAILY [facility] Last Admin: 03/28/22 08:18 Dose: 40 mg Fluticasone Propionate (Fluticasone Propionate 100 Mcg Blst.W.Dev) 2 puff INHALE RBID [facility] Last Admin: 03/28/22 07:19 Dose: 2 puff Furosemide (Furosemide 20 Mg Tablet) 20 mg PO DAILY [facility]; Protocol Last Admin: 03/28/22 08:17 Dose: 20 mg Gabapentin (Gabapentin 400 Mg Capsule) 800 mg PO BEDTIME [facility] Last Admin: 03/27/22 23:18 Dose: 800 mg Gabapentin (Gabapentin 400 Mg Capsule) 400 mg PO BID@0900,1200 [facility] Last Admin: 03/28/22 13:05 Dose: 400 mg Haloperidol (Haloperidol 1 Mg Tablet) 2 mg PO BEDTIME [facility] Last Admin: 03/27/22 23:18 Dose: 2 mg Vancomycin HCl 750 mg/ Sodium (Chloride) 265 mls @ 265 mls/hr IV Q12H [facility] Last Infusion: 03/28/22 06:10 Dose: Infused Insulin Glargine (Insulin Glargine,Hum.Rec.Anlog 100 Unit/Ml 10 Ml Vial) 50 unit SUBCUT BEDTIME [facility] Last Admin: 03/27/22 23:21 Dose: 50 unit Insulin Human Lispro (Insulin Lispro 100 Unit/Ml 3 Ml Vial) 0 unit SUBCUT QIDACHS [facility]; Protocol Last Admin: 03/28/22 12:10 Dose: 6 unit Isosorbide Mononitrate (Isosorbide Mononitrate 30 Mg Tab.Er.24h) 30 mg PO DAILY [facility]; Protocol Last Admin: 03/28/22 08:17 Dose: 30 mg Meclizine HCl (Meclizine Hcl 25 Mg Tablet) 25 mg PO TID PRN PRN Reason: Dizziness Metoprolol Succinate (Metoprolol Succinate Er 50 Mg Tab.Er.24h) 50 mg PO DAILY [facility]; Protocol Last Admin: 03/28/22 08:17 Dose: 50 mg Omeprazole (Omeprazole 20 Mg Capsule.Dr) 20 mg PO BEDTIME [facility] Last Admin: 03/27/22 23:18 Dose: 20 mg Pharmacy Consult (Consult Rx Perform Med Rec) 1 each MISCELLANE ONCE PRN PRN Reason: Consult order Pharmacy Consult (Consult Rx Vancomycin Dosing) 1 each MISCELLANE DAILY PRN PRN Reason: Consult order Polyethylene Glycol (Polyethylene Glycol 3350 17 Gm Powd.Pack) 17 gm PO DAILY PRN PRN Reason: constipation Pregabalin (Pregabalin 100 Mg Capsule) 100 mg PO BID [facility] Last Admin: 03/28/22 08:17 Dose: 100 mg Sodium Chloride (0.9 % Sodium Chloride Flush 3 Ml Syringe) 3 ml IVFLUSH QSHIFT [facility] Last Admin: 09/09/22 08:17 Dose: 3 ml Tizanidine HCl (Tizanidine Hcl 4 Mg Tablet) 4 mg PO DAILY@1600 [facility] Last Admin: 03/27/22 16:49 Dose: 4 mg Vitamin D (Cholecalciferol (Vitamin D3) 25 Mcg Tablet) 25 mcg PO DAILY [facility] Last Admin: 03/28/22 08:17 Dose: 25 mcg Home Medications Medication Instructions Recorded Confirmed Last Taken Type albuterol sulfate 90 mcg/actuation 2 puff inhalation Q4H PRN Dyspnea 11/23/20 03/26/22 1 Day Ago History aerosol inhaler (ProAir HFA) ~03/31/21 aspirin 81 mg tablet,delayed 81 mg PO DAILY 11/23/20 03/26/22 1 Day Ago History release ~03/31/21 fluoxetine 40 mg capsule 40 mg PO DAILY 11/23/20 03/26/22 1 Day Ago History ~03/31/21 fluticasone propionate 110 2 puff inhalation BID 11/23/20 03/26/22 1 Day Ago History mcg/actuation HFA aerosol inhaler ~03/31/21 (Flovent HFA) metoprolol succinate 50 mg 50 mg PO DAILY 11/23/20 03/26/22 1 Day Ago History tablet,extended release 24 hr ~03/31/21 omeprazole 20 mg capsule,delayed 20 mg PO BEDTIME 11/23/20 03/26/22 1 Day Ago History release ~03/31/21 simvastatin 20 mg tablet 20 mg PO BEDTIME 11/23/20 03/26/22 1 Day Ago History ~03/31/21 isosorbide mononitrate 30 mg 30 mg PO DAILY 12/11/20 03/26/22 1 Day Ago History tablet,extended release 24 hr ~03/31/21 tizanidine 4 mg tablet 4 mg PO BEDTIME 12/11/20 03/26/22 1 Day Ago History ~03/31/21 gabapentin 400 mg capsule 400 mg PO BID@0900,1200 01/09/21 03/26/22 1 Day Ago History ~03/31/21 amlodipine 10 mg tablet 1 tab PO DAILY 06/07/21 03/26/22 Unknown History bumetanide 2 mg tablet 1 tab PO DAILY 06/07/21 03/26/22 Unknown History cholecalciferol (vitamin D3) 25 1 cap PO DAILY 06/07/21 03/26/22 Unknown History mcg (1,000 unit) capsule gabapentin 400 mg capsule 800 mg PO BEDTIME 06/07/21 03/26/22 Unknown History insulin glargine 100 unit/mL 80 unit subcut BEDTIME 06/07/21 03/26/22 Unknown History subcutaneous solution (Lantus U-100 Insulin) meclizine 25 mg tablet 25 mg PO TID PRN Dizziness 06/07/21 03/26/22 Unknown History pregabalin 100 mg capsule 1 cap PO BID 06/08/21 03/26/22 Unknown History furosemide 20 mg tablet 1 tab PO DAILY 03/26/22 03/26/22 Unknown History haloperidol 2 mg tablet 1 tab PO BEDTIME 03/26/22 03/26/22 Unknown History Physical Exam Vital Signs: Vital Signs: Last Vital Signs Temp 98.9 F 03/28/22 11:30 Pulse 96 03/28/22 11:30 Resp 20 03/28/22 11:30 BP 126/75 03/28/22 11:30 Pulse Ox 98 03/28/22 11:30 O2 Del Method 03/28/22 11:30 O2 Flow Rate 4 03/28/22 11:30 BMI result Body Mass Index 55.8 Extrem: Other: mild erythema,venous stasis RLE plus 4 swelling dorsum foot Results Labs CBC & Chem 7: 03/28/22 06:11 03/28/22 06:11 Labs: Short CBC 03/28/22 Range/Units 06:11 WBC 9.0 (4.8-10.8) X10*3/uL Hgb 8.7 L (12.0-16.0) g/dl Hct 31.0 L (37.0-47.0) % Plt Count 176 (160-400) X10*3/uL BMP 03/28/22 06:11 Sodium 144 Potassium 5.0 Chloride 109 H Carbon Dioxide 25 BUN 38 H Creatinine 1.34 Calcium 8.0 L Assessment and Plan (1) Cellulitis of right lower extremity: Status: Acute She has received antibiotics and this is recurrent. I dont see any tinea pedis She has no PCN allergy (2) Stasis dermatitis of both legs: Status: Acute Plan Elevate extremity Po Doxycycline on discharge for 14 days and then consider po PCN prophylaxis after this acute treatment is over 250 bid indefinitely ( I can see in office and arrange this ( pls call [phone]
--- NOTE | 2022-03-28 13:48 | P.PNIM_ITS ---
Subjective Subjective Date of Service: 03/28/22 Interval History: seen and examined this morning follow up for right leg cellulitis still with leg swelling having episodes of severe anxiety Review of Systems Review of Systems: Yes all other systems are reviewed and are negative Constitutional Constitutional: Denies chills and Denies fever(s) Cardiovascular Cardiovascular: Denies chest pain, Denies palpitations and Denies dyspnea Respiratory Respiratory: Denies cough and Denies dyspnea Gastrointestinal Gastrointestinal: Denies abdominal pain Endocrine Endocrine: Denies palpitations Physical Exam Vital Signs: Vital Signs: Last Vital Signs Temp 98.9 F 03/28/22 11:30 Pulse 96 03/28/22 11:30 Resp 20 03/28/22 11:30 BP 126/75 03/28/22 11:30 Pulse Ox 98 03/28/22 11:30 O2 Del Method 03/28/22 11:30 O2 Flow Rate 4 03/28/22 11:30 BMI result Body Mass Index 55.8 Const: General: no acute distress, alert and awake Nutritional Appearance: obese Resp: Effort & Inspection: normal respiratory effort Cardio: Rate: regular rate Heart sounds: S1 normal heart sound present and S2 normal heart sound present GI: Inspection: No distended and Yes obesity Palpation (GI): Soft to palpation Skin: Other: right lower extremity erythema Neuro: Other: sleepy - declines to answer questions - unable to assess orientation Objective Data Active Medications Acetaminophen (Acetaminophen 325 Mg Tablet) 650 mg PO Q6H PRN PRN Reason: Pain, Mild (Pain Scale 1-3) Albuterol/Ipratropium (Albuterol/Iprat 2.5/0.5mg 3 Ml Ampul.Neb) 3 ml INHALE RQ6H PRN PRN Reason: Shortness of Breath/Wheezing Last Admin: 03/27/22 16:13 Dose: 3 ml Documented By: TIFFANIE Amlodipine Besylate (Amlodipine Besylate 10 Mg Tablet) 10 mg PO DAILY [facility]; Protocol Last Admin: 03/28/22 08:18 Dose: 10 mg Documented By: PAULINE Aspirin (Aspirin Enteric Coated 81 Mg Tablet.) 81 mg PO DAILY [facility] Last Admin: 03/28/22 08:18 Dose: 81 mg Documented By: PAULINE Atorvastatin Calcium (Atorvastatin Calcium 10 Mg Tablet) 10 mg PO BEDTIME [facility] Last Admin: 03/27/22 23:17 Dose: 10 mg Documented By: MEET Enoxaparin Sodium (Enoxaparin Sodium 40 Mg/0.4 Ml Syringe) 40 mg SUBCUT Q24H [facility] Last Admin: 03/28/22 08:18 Dose: 40 mg Documented By: PAULINE Fluoxetine HCl (Fluoxetine Hcl 20 Mg Capsule) 40 mg PO DAILY [facility] Last Admin: 03/28/22 08:18 Dose: 40 mg Documented By: PAULINE Fluticasone Propionate (Fluticasone Propionate 100 Mcg Blst.W.Dev) 2 puff INHALE RBID [facility] Last Admin: 03/28/22 07:19 Dose: 2 puff Documented By: TIFFANIE Furosemide (Furosemide 20 Mg Tablet) 20 mg PO DAILY [facility]; Protocol Last Admin: 03/28/22 08:17 Dose: 20 mg Documented By: PAULINE Gabapentin (Gabapentin 400 Mg Capsule) 800 mg PO BEDTIME [facility] Last Admin: 03/27/22 23:18 Dose: 800 mg Documented By: MEET Gabapentin (Gabapentin 400 Mg Capsule) 400 mg PO BID@0900,1200 [facility] Last Admin: 03/28/22 13:05 Dose: 400 mg Documented By: PAULINE Haloperidol (Haloperidol 1 Mg Tablet) 2 mg PO BEDTIME [facility] Last Admin: 03/27/22 23:18 Dose: 2 mg Documented By: MEET Vancomycin HCl 750 mg/ Sodium (Chloride) 265 mls @ 265 mls/hr IV Q12H [facility] Last Infusion: 03/28/22 06:10 Dose: 265 mls/hr Documented By: NALLELY Insulin Glargine (Insulin Glargine,Hum.Rec.Anlog 100 Unit/Ml 10 Ml Vial) 50 unit SUBCUT BEDTIME [facility] Last Admin: 03/27/22 23:21 Dose: 50 unit Documented By: MEET Insulin Human Lispro (Insulin Lispro 100 Unit/Ml 3 Ml Vial) 0 unit SUBCUT QIDACHS [facility]; Protocol Last Admin: 03/28/22 12:10 Dose: 6 unit Documented By: KEY Comments: per sliding scale Isosorbide Mononitrate (Isosorbide Mononitrate 30 Mg Tab.Er.24h) 30 mg PO DAILY [facility]; Protocol Last Admin: 03/28/22 08:17 Dose: 30 mg Documented By: PAULINE Meclizine HCl (Meclizine Hcl 25 Mg Tablet) 25 mg PO TID PRN PRN Reason: Dizziness Metoprolol Succinate (Metoprolol Succinate Er 50 Mg Tab.Er.24h) 50 mg PO DAILY [facility]; Protocol Last Admin: 03/28/22 08:17 Dose: 50 mg Documented By: PAULINE Omeprazole (Omeprazole 20 Mg Capsule.) 20 mg PO BEDTIME [facility] Last Admin: 03/27/22 23:18 Dose: 20 mg Documented By: MEET Pharmacy Consult (Consult Rx Perform Med Rec) 1 each MISCELLANE ONCE PRN PRN Reason: Consult order Pharmacy Consult (Consult Rx Vancomycin Dosing) 1 each MISCELLANE DAILY PRN PRN Reason: Consult order Polyethylene Glycol (Polyethylene Glycol 3350 17 Gm Powd.Pack) 17 gm PO DAILY PRN PRN Reason: constipation Pregabalin (Pregabalin 100 Mg Capsule) 100 mg PO BID [facility] Last Admin: 03/28/22 08:17 Dose: 100 mg Documented By: PAULINE Sodium Chloride (0.9 % Sodium Chloride Flush 3 Ml Syringe) 3 ml IVFLUSH QSHIFT [facility] Last Admin: 03/28/22 08:17 Dose: 3 ml Documented By: PAULINE Tizanidine HCl (Tizanidine Hcl 4 Mg Tablet) 4 mg PO DAILY@1600 [facility] Last Admin: 03/27/22 16:49 Dose: 4 mg Documented By: CTORRMajor Vitamin D (Cholecalciferol (Vitamin D3) 25 Mcg Tablet) 25 mcg PO DAILY [facility] Last Admin: 03/28/22 08:17 Dose: 25 mcg Documented By: PAULINE Labs CBC & Chem 7: 03/28/22 06:11 03/28/22 06:11 Labs: Laboratory Results - last 24 hr 03/27/22 03/27/22 03/27/22 06:14 16:24 16:48 MCV MCH MCHC RDW Plt Count MPV Absolute Nucleated RBC Nucleated RBC % (auto) Anion Gap Estim Creat Clear Calc Estimated GFR POC Glucose 169 H Random Glucose Calcium Vitamin B12 243 Folate 6.6 Vancomycin Trough 15.9 03/27/22 03/28/22 03/28/22 23:05 06:11 06:11 MCV 95.4 MCH 26.8 L MCHC 28.1 L RDW 17.3 H Plt Count 176 MPV 9.3 L Absolute Nucleated RBC 0.000 Nucleated RBC % (auto) 0.0 Anion Gap 15 Estim Creat Clear Calc 60.2 Estimated GFR 40 POC Glucose 212 H Random Glucose 322 H Calcium 8.0 L Vitamin B12 Folate Vancomycin Trough 03/28/22 03/28/22 07:09 11:33 MCV MCH MCHC RDW Plt Count MPV Absolute Nucleated RBC Nucleated RBC % (auto) Anion Gap Estim Creat Clear Calc Estimated GFR POC Glucose 294 H 292 H Random Glucose Calcium Vitamin B12 Folate Vancomycin Trough Assessment and Plan (1) Cellulitis of right lower extremity: Status: Acute (2) Stasis dermatitis of both legs: Status: Acute (3) DANIEL (obstructive sleep apnea): Status: Acute Plan 61 year old female with history of uncontrolled insulin dependent type 2 d iabetes with pvd and neuropathy, chronic venous stasis dermatitis, asthma/COPD overlap with chronic respiratory failure on prn home O2, nonischemic cardiomyopathy, htn, hld, and morbid obesity to be observed for RLE cellulitis. Acute recurrent RLE cellulitis- intermittent recurrence ongoing since 2019. Treated at [facility] [place] with IV unasyn discharged 4 days ago, no oral abx H/o chronic venous stasis dermatitis Venous deplex negative for DVT. Xray R ankle neg for osseous abnormality including osteomyelitis -Continue vancomycin -seen by ID- may be more venous stasis she then cellulitis, recommend transition to p.o. doxycycline on discharge for 14 days and then PCN prophylaxis - outpatient follow up with ID -keep leg elevated Anxiety Patient with episodes of what she describes as severe anxiety/panic. Asking for medication -psych consult pending Lethargy awake and alert this am Acute on chronic normocytic anemia iron studies,b12, folate ok CBC stable Insulin dependent Type 2 diabetes -continue ADA diet -continue home dose of Lantus -continue SSI HTN- -Continue amlodipine, isosorbide HLD -Continue simvastatin Non-ischemic cardiomyopathy- stable - per discharge note from [facility] patient was changed from Bumex to low dose Lasix - will stop bumex and change to lasix - follow renal function HFrEF- stable -Recent admission to [facility]. Echo on 03/10 with grade 2 diastolic dysfunction with EF 25-35%. -CXR with some vascular congestion. Pt denies sob -resume Lasix, discontinue Bumex Asthma/COPD with chronic respiratory failure on prn home O2 -resume nocturnal cpap -Duonebs prn Depression/anxiety with agitation -Continue fluoxetine, haldol -psych eval as above Diabetic neuropathy -Continue lyrica Morbid obesity BMI 55.8 contributing to chronic respiratory issues -low calorie diabetic diet DVT prophylaxis- lovenox attending - dr. Sharma Full code patient requires ongoing inpatient hospitalization due to treatment of right lower extremity cellulitis, eval for anxiety Quality Stroke Does the patient have a stroke diagnosis?: No VTE Prior VTE?: No VTE Risk Level:: Medical - moderate - high VTE Device Contraindication: Treatment Not Indicated VTE Drug Contraindication: N/A - Med Ordered
[2022-03-28 16:00] VITALS: BP 132/59; PULSE 89; RESP 20; TEMP 37; O2SAT 91
[2022-03-28 16:29] LABS: Glucose, Whole Blood 169 mg/dL (60-115)
[2022-03-28 16:31] LABS: Vancomycin Trough 17.2 mcg/mL (10.0-20.0)
[2022-03-28] MEDS: TiZANidine HCL 4 MG TABLET PO (16:45)
--- NOTE | 2022-03-28 16:54 | HE.PHANOTE ---
VANCOMYCIN DOSING BASED OF TROUGH OF 17.2 DOSE CONTINUED AT 750Q12. NEXT TROUGH PREDICTED TO BE 16.7 AND SET FOR 03/29 @ 1600.
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
[2022-03-28] MEDS: cloNIDine HCL 0.1 MG TABLET PO (19:40)
[2022-03-28 20:55] LABS: Glucose, Whole Blood 263 mg/dL (60-115)
[2022-03-28] MEDS: Omeprazole 20 MG CAPSULE.DR PO (22:40)
[2022-03-28] MEDS: Gabapentin 400 MG CAPSULE 800 MG PO (22:40)
[2022-03-28] MEDS: risperiDONE 0.5 MG TABLET PO (22:41)
[2022-03-28] MEDS: Insulin Glargine,Hum.rec.anlog 100 UNIT/ML 10 ML VIAL 50 UNIT SUBCUT (22:42)
[2022-03-28] MEDS: Atorvastatin Calcium 10 MG TABLET PO (22:42)
[2022-03-29] VITALS: RESP 19
[2022-03-29] MEDS: vancomycin HCL 750 MG in 0.9 % Sodium Chloride 250 ML 265 MG IV (05:10)
[2022-03-29 07:39] LABS: Glucose, Whole Blood 204 mg/dL (60-115)
[2022-03-29 07:59] VITALS: PULSE 78; RESP 17; O2SAT 91
[2022-03-29] MEDS: Fluticasone Propionate 100 MCG BLST.W.DEV 2 PUFF INHALE ×2 (07:59→20:24)
[2022-03-29 08:00] VITALS: BP 118/63; PULSE 76; RESP 19; TEMP 35.8; O2SAT 93
[2022-03-29] MEDS: Insulin Lispro 100 UNIT/ML 3 ML VIAL SUBCUT ×4 (08:14→21:00)
[2022-03-29] MEDS: risperiDONE 0.5 MG TABLET PO ×2 (08:14→21:00)
[2022-03-29] MEDS: 0.9 % Sodium Chloride Flush 3 ML SYRINGE IVFLUSH ×3 (08:14→21:01)
[2022-03-29] MEDS: Cholecalciferol (Vitamin D3) 25 MCG TABLET PO (08:14)
[2022-03-29] MEDS: FLUoxetine HCl 20 MG CAPSULE 40 MG PO (08:15)
[2022-03-29] MEDS: Aspirin Enteric Coated 81 MG TABLET.DR PO (08:15)
[2022-03-29] MEDS: Gabapentin 400 MG CAPSULE PO ×2 (08:17→12:02)
[2022-03-29] MEDS: Enoxaparin Sodium 40 MG/0.4 ML SYRINGE SUBCUT (08:17)
[2022-03-29] MEDS: Pregabalin 100 MG CAPSULE PO ×2 (08:17→21:00)
[2022-03-29] MEDS: amLODIPine Besylate 10 MG TABLET PO (08:18)
[2022-03-29] MEDS: Metoprolol Succinate ER 50 MG TAB.ER.24H PO (08:18)
[2022-03-29] MEDS: Furosemide 20 MG TABLET PO (08:18)
[2022-03-29] MEDS: Isosorbide Mononitrate 30 MG TAB.ER.24H PO (08:18)
--- NOTE | 2022-03-29 09:36 | HE.PHANOTE ---
Vancomycin Dosing Addendum Vancomycin Trough ordered for today at 1600. Creatinine also ordered. Continue with current regimen for now
[2022-03-29 11:52] LABS: Glucose, Whole Blood 252 mg/dL (60-115)
--- NOTE | 2022-03-29 14:26 | HO.PM.IMPN ---
Subjective Subjective Date of Service: 03/29/22 Interval History: seen and examined this morning follow up for RLE swelling/cellulitis continues to have frequent episodes of anxiety/yelling - was seen by psych started on risperdal, clonidine prn; haldol d/c this morning uncooperative, angry. felt like she was choking but able to talk in complete sentences and was in fact yelling at this provider and aide. o2 remained stable Review of Systems Review of Systems: Yes all other systems are reviewed and are negative Constitutional Constitutional: Denies chills and Denies fever(s) Cardiovascular Cardiovascular: Denies chest pain, Denies palpitations and Reports dyspnea Respiratory Respiratory: Denies cough and Reports dyspnea Gastrointestinal Gastrointestinal: Denies abdominal pain Endocrine Endocrine: Denies palpitations Physical Exam Vital Signs: Vital Signs: Last Vital Signs Temp 96.4 F L 03/29/22 08:00 Pulse 76 03/29/22 08:00 Resp 19 03/29/22 08:00 BP 118/63 03/29/22 08:00 Pulse Ox 93 03/29/22 08:00 O2 Del Method 03/29/22 08:00 O2 Flow Rate 4 03/28/22 11:30 BMI result Body Mass Index 55.8 Const: Other: arousable to painful stimuli; falls back to sleep quickly; is able to answer questions briefly while awake General: no acute distress, alert and awake Nutritional Appearance: obese Resp: Effort & Inspection: normal respiratory effort Cardio: Rate: regular rate Heart sounds: S1 normal heart sound present and S2 normal heart sound present GI: Inspection: No distended and Yes obesity Palpation (GI): Soft to palpation Skin: Other: right lower extremity erythema, swelling Objective Data Active Medications Acetaminophen (Acetaminophen 325 Mg Tablet) 650 mg PO Q6H PRN PRN Reason: Pain, Mild (Pain Scale 1-3) Albuterol/Ipratropium (Albuterol/Iprat 2.5/0.5mg 3 Ml Ampul.Neb) 3 ml INHALE RQ6H PRN PRN Reason: Shortness of Breath/Wheezing Last Admin: 03/27/22 16:13 Dose: 3 ml Documented By: TIFFANIE Amlodipine Besylate (Amlodipine Besylate 10 Mg Tablet) 10 mg PO DAILY [facility]; Protocol Last Admin: 03/29/22 08:18 Dose: 10 mg Documented By: SURAJ Comments: bp-118/63, hr-76 Aspirin (Aspirin Enteric Coated 81 Mg Tablet.) 81 mg PO DAILY [facility] Last Admin: 03/29/22 08:15 Dose: 81 mg Documented By: SURAJ Atorvastatin Calcium (Atorvastatin Calcium 10 Mg Tablet) 10 mg PO BEDTIME HI Last Admin: 03/28/22 22:42 Dose: 10 mg Documented By: RAMONA Clonidine HCl (Clonidine Hcl 0.1 Mg Tablet) 0.1 mg PO TID PRN; Protocol PRN Reason: hyperarousal, anxiety, panic Last Admin: 03/28/22 19:40 Dose: 0.1 mg Documented By: RAMONA Enoxaparin Sodium (Enoxaparin Sodium 40 Mg/0.4 Ml Syringe) 40 mg SUBCUT Q24H [facility] Last Admin: 03/29/22 08:17 Dose: 40 mg Documented By: SURAJ Fluoxetine HCl (Fluoxetine Hcl 20 Mg Capsule) 40 mg PO DAILY [facility] Last Admin: 03/29/22 08:15 Dose: 40 mg Documented By: SURAJ Fluticasone Propionate (Fluticasone Propionate 100 Mcg Blst.W.Dev) 2 puff INHALE RBID [facility] Last Admin: 03/29/22 07:59 Dose: 2 puff Documented By: BENITEZ Furosemide (Furosemide 20 Mg Tablet) 20 mg PO DAILY [facility]; Protocol Last Admin: 03/29/22 08:18 Dose: 20 mg Documented By: SURAJ Comments: bp-118/63, hr-76 Gabapentin (Gabapentin 400 Mg Capsule) 800 mg PO BEDTIME HI Last Admin: 03/28/22 22:40 Dose: 800 mg Documented By: RAMONA Gabapentin (Gabapentin 400 Mg Capsule) 400 mg PO BID@0900,1200 [facility] Last Admin: 03/29/22 12:02 Dose: 400 mg Documented By: SURAJ Vancomycin HCl 750 mg/ Sodium (Chloride) 265 mls @ 265 mls/hr IV Q12H [facility] Last Infusion: 03/29/22 06:15 Dose: 0 mls/hr Documented By: BAUTISTA Insulin Glargine (Insulin Glargine,Hum.Rec.Anlog 100 Unit/Ml 10 Ml Vial) 50 unit SUBCUT BEDTIME [facility] Last Admin: 03/28/22 22:42 Dose: 50 unit Documented By: RAMONA Insulin Human Lispro (Insulin Lispro 100 Unit/Ml 3 Ml Vial) 0 unit SUBCUT QIDACHS [facility]; Protocol Last Admin: 03/29/22 12:02 Dose: 6 unit Documented By: SURAJ Isosorbide Mononitrate (Isosorbide Mononitrate 30 Mg Tab.Er.24h) 30 mg PO DAILY [facility]; Protocol Last Admin: 03/29/22 08:18 Dose: 30 mg Documented By: SURAJ Comments: bp-118/63, hr-76 Meclizine HCl (Meclizine Hcl 25 Mg Tablet) 25 mg PO TID PRN PRN Reason: Dizziness Metoprolol Succinate (Metoprolol Succinate Er 50 Mg Tab.Er.24h) 50 mg PO DAILY [facility]; Protocol Last Admin: 03/29/22 08:18 Dose: 50 mg Documented By: SURAJ Comments: bp-118/63, hr-76 Nystatin (Nystatin Powder 15 Gm Bottle) 1 appl TOPICAL BID [facility]; Protocol Omeprazole (Omeprazole 20 Mg Capsule.Dr) 20 mg PO BEDTIME [facility] Last Admin: 03/28/22 22:40 Dose: 20 mg Documented By: RAMONA Pharmacy Consult (Consult Rx Perform Med Rec) 1 each MISCELLANE ONCE PRN PRN Reason: Consult order Pharmacy Consult (Consult Rx Vancomycin Dosing) 1 each MISCELLANE DAILY PRN PRN Reason: Consult order Polyethylene Glycol (Polyethylene Glycol 3350 17 Gm Powd.Pack) 17 gm PO DAILY PRN PRN Reason: constipation Pregabalin (Pregabalin 100 Mg Capsule) 100 mg PO BID [facility] Last Admin: 03/29/22 08:17 Dose: 100 mg Documented By: SURAJ Risperidone (Risperidone 0.5 Mg Tablet) 0.5 mg PO BID [facility] Last Admin: 03/29/22 08:14 Dose: 0.5 mg Documented By: SURAJ Sodium Chloride (0.9 % Sodium Chloride Flush 3 Ml Syringe) 3 ml IVFLUSH QSHIFT [facility] Last Admin: 03/29/22 08:14 Dose: 3 ml Documented By: SURAJ Tizanidine HCl (Tizanidine Hcl 4 Mg Tablet) 4 mg PO DAILY@1600 [facility] Last Admin: 03/28/22 16:45 Dose: 4 mg Documented By: RAMONA Vitamin D (Cholecalciferol (Vitamin D3) 25 Mcg Tablet) 25 mcg PO DAILY [facility] Last Admin: 03/29/22 08:14 Dose: 25 mcg Documented By: SURAJ Labs CBC & Chem 7: 03/28/22 06:11 03/28/22 06:11 Labs: Laboratory Results - last 24 hr 03/28/22 03/28/22 03/28/22 16:01 16:26 20:38 POC Glucose 169 H 263 H Vancomycin Trough 17.2 03/29/22 03/29/22 07:36 11:44 POC Glucose 204 H 252 H Vancomycin Trough Assessment and Plan (1) Panic disorder: Status: Acute (2) Cellulitis of right lower extremity: Status: Acute (3) Stasis dermatitis of both legs: Status: Acute (4) DANIEL (obstructive sleep apnea): Status: Acute (5) Morbid obesity: Status: Acute Plan 61 year old female with history of 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 Acute recurrent RLE cellulitis- intermittent recurrence ongoing since 2019. Tre[place] [facility] [place] IV unasyn discharged 4 days ago, no oral abx H/o chronic venous stasis dermatitis Venous deplex negative for DVT. Xray R ankle neg for osseous abnormality including osteomyelitis -Continue vancomycin -seen by ID- may be more venous stasis she then cellulitis, recommend transition to p.o. doxycycline on discharge for 14 days and then PCN prophylaxis - outpatient follow up with ID -keep leg elevated -will repeat DVT study given that peroneal and posterior tibial veins in calf were not visualized on previous study Depression/anxiety with agitation Patient with episodes of what she describes as severe anxiety/panic. seen by psych, meds adjusted still having shouting/anxiety episodes today, intermittent hallucinations does not meet criteria for IP psych at this time Lethargy resolved Acute on chronic normocytic anemia iron studies,b12, folate ok CBC stable Insulin dependent Type 2 diabetes -continue ADA diet -continue home dose of Lantus -continue SSI HTN- -Continue amlodipine, isosorbide HLD -Continue simvastatin HFrEF- stable -Recent admission to [facility]. Echo on 03/10 with grade 2 diastolic dysfunction with EF 25-35%. -CXR with some vascular congestion. Pt denies sob -resume Lasix, discontinue Bumex as per d/c note from [facility] Asthma/COPD with chronic respiratory failure on prn home O2 -resume nocturnal cpap -Duonebs prn Diabetic neuropathy -Continue lyrica Morbid obesity BMI 55.8 contributing to chronic respiratory issues -low calorie diabetic diet DVT prophylaxis- lovenox attending - dr. ojeda dispo - seen by PT - rec STR, patient wants to go home, will need VNA, home PT Full code patient requires ongoing inpatient hospitalization due to treatment of right lower extremity cellulitis, eval for anxiety Quality Stroke Does the patient have a stroke diagnosis?: No VTE Prior VTE?: No VTE Risk Level:: Medical - moderate - high VTE Device Contraindication: Treatment Not Indicated VTE Drug Contraindication: N/A - Med Ordered
[2022-03-29 15:09] VITALS: BP 107/63; PULSE 78; RESP 18; TEMP 36.7; O2SAT 94
[2022-03-29 16:04] LABS: Glucose, Whole Blood 210 mg/dL (60-115)
[2022-03-29] MEDS: TiZANidine HCL 4 MG TABLET PO (16:40)
[2022-03-29 17:13] LABS: Anion Gap 15 (12-20); Blood Urea Nitrogen 50 mg/dL (9-16); Calcium 7.9 mg/dL (8.4-10.2); Carbon Dioxide 22 mmol/L (22-29); Chloride 109 mmol/L (96-108); Creatinine Clr Calc Pharmacy 62.1; Estimated Glomerular Filt Rate 42; Glucose Random 245 mg/dL (60-115); Potassium 5.4 mmol/L (3.3-5.1); Sodium 141 mmol/L (135-145)
[2022-03-29 17:16] LABS: Vancomycin Trough 19.2 mcg/mL (10.0-20.0)
[2022-03-29] MEDS: vancomycin HCL 500 MG in 0.9 % Sodium Chloride 100 ML 110 MG IV (18:20)
[2022-03-29 19:40] LABS: Glucose, Whole Blood 226 mg/dL (60-115)
[2022-03-29 20:26] VITALS: PULSE 77; RESP 18; O2SAT 94
[2022-03-29] MEDS: Gabapentin 400 MG CAPSULE 800 MG PO (20:59)
[2022-03-29] MEDS: Insulin Glargine,Hum.rec.anlog 100 UNIT/ML 10 ML VIAL 50 UNIT SUBCUT (20:59)
[2022-03-29] MEDS: Atorvastatin Calcium 10 MG TABLET PO (20:59)
[2022-03-29] MEDS: cloNIDine HCL 0.1 MG TABLET PO (21:00)
[2022-03-29] MEDS: Omeprazole 20 MG CAPSULE.DR PO (21:00)
[2022-03-29] MEDS: Nystatin Powder 15 GM BOTTLE 1 APPL TOPICAL (21:07)
[2022-03-29] MEDS: hydrOXYzine HCL 25 MG TABLET PO (23:25)
[2022-03-29] MEDS: traZODone HCL 50 MG TABLET PO (23:26)
[2022-03-29 23:47] VITALS: BP 141/75; PULSE 86; RESP 16; TEMP 36.8; O2SAT 83
[2022-03-30] MEDS: vancomycin HCL 500 MG in 0.9 % Sodium Chloride 100 ML 110 MG IV (06:36)
[2022-03-30 06:59] LABS: Creatinine Clr Calc Pharmacy 53.4; Estimated Glomerular Filt Rate 35
[2022-03-30] MEDS: risperiDONE 0.5 MG TABLET PO ×2 (07:32→20:17)
[2022-03-30] MEDS: FLUoxetine HCl 20 MG CAPSULE 40 MG PO (07:32)
[2022-03-30] MEDS: Acetaminophen 325 MG TABLET 650 MG PO (07:32)
[2022-03-30] MEDS: cloNIDine HCL 0.1 MG TABLET PO (07:33)
[2022-03-30] MEDS: Cholecalciferol (Vitamin D3) 25 MCG TABLET PO (07:33)
[2022-03-30] MEDS: Nystatin Powder 15 GM BOTTLE 1 APPL TOPICAL ×2 (07:33→20:19)
[2022-03-30] MEDS: Aspirin Enteric Coated 81 MG TABLET.DR PO (07:33)
[2022-03-30] MEDS: Gabapentin 400 MG CAPSULE PO ×2 (07:33→12:09)
[2022-03-30] MEDS: Pregabalin 100 MG CAPSULE PO ×2 (07:34→20:16)
[2022-03-30] MEDS: 0.9 % Sodium Chloride Flush 3 ML SYRINGE IVFLUSH ×4 (07:35→23:05)
[2022-03-30] MEDS: amLODIPine Besylate 10 MG TABLET PO (07:51)
[2022-03-30] MEDS: Isosorbide Mononitrate 30 MG TAB.ER.24H PO (07:52)
[2022-03-30] MEDS: Furosemide 20 MG TABLET PO (07:52)
[2022-03-30] MEDS: Metoprolol Succinate ER 50 MG TAB.ER.24H PO (07:52)
[2022-03-30] MEDS: Enoxaparin Sodium 40 MG/0.4 ML SYRINGE SUBCUT (07:52)
[2022-03-30] MEDS: Insulin Lispro 100 UNIT/ML 3 ML VIAL SUBCUT ×4 (07:53→20:17)
[2022-03-30 08:00] VITALS: BP 113/75; PULSE 83; RESP 17; TEMP 36.8; O2SAT 90
[2022-03-30 08:02] LABS: Glucose, Whole Blood 183 mg/dL (60-115)
[2022-03-30 11:38] LABS: Glucose, Whole Blood 232 mg/dL (60-115)
[2022-03-30] MEDS: Doxycycline Hyclate 100 MG in 0.9 % Sodium Chloride 250 ML 166.67 MG IV ×2 (12:08→23:03)
--- NOTE | 2022-03-30 12:48 | P.PNIM_ITS ---
Subjective Subjective Date of Service: 03/30/22 Interval History: seen and examined this morning follow up for right leg cellulitis low o2 overnight, unclear if accurately documented, denies sob, no cough has not been using CPAP due to anxiety/inability to tolerate - also states that she does not use at home although she does have machine Review of Systems Review of Systems: Yes all other systems are reviewed and are negative Constitutional Constitutional: Denies chills and Denies fever(s) ENT Ears, Nose, Mouth, and Throat: Denies dizziness Cardiovascular Cardiovascular: Denies chest pain and Denies dyspnea Respiratory Respiratory: Denies dyspnea Gastrointestinal Gastrointestinal: Denies abdominal pain, Denies nausea and Denies vomiting Neurologic Neurologic: Denies dizziness Physical Exam Vital Signs: Vital Signs: Last Vital Signs Temp 98.2 F 03/30/22 08:00 Pulse 83 03/30/22 08:00 Resp 17 03/30/22 08:00 BP 113/75 03/30/22 08:00 Pulse Ox 90 L 03/30/22 08:00 O2 Del Method 03/30/22 08:00 O2 Flow Rate 2 03/30/22 08:00 BMI result Body Mass Index 55.8 Const: General: no acute distress, alert and awake Nutritional Appearance: obese Resp: Effort & Inspection: normal respiratory effort Cardio: Rate: regular rate Heart sounds: S1 normal heart sound present and S2 normal heart sound present GI: Inspection: No distended and Yes obesity Palpation (GI): Soft to palpation Neuro: Other: sleepy - declines to answer questions - unable to assess orientation Extrem: Other: lower extremities wrapped in diallo wrap Objective Data Active Medications Acetaminophen (Acetaminophen 325 Mg Tablet) 650 mg PO Q6H PRN PRN Reason: Pain, Mild (Pain Scale 1-3) Last Admin: 03/30/22 07:32 Dose: 650 mg Documented By: SURAJ Albuterol/Ipratropium (Albuterol/Iprat 2.5/0.5mg 3 Ml Ampul.Neb) 3 ml INHALE RQ6H PRN PRN Reason: Shortness of Breath/Wheezing Last Admin: 03/27/22 16:13 Dose: 3 ml Documented By: TIFFANIE Amlodipine Besylate (Amlodipine Besylate 10 Mg Tablet) 10 mg PO DAILY [place]; Protocol Last Admin: 03/30/22 07:51 Dose: 10 mg Documented By: SURAJ Comments: bp Aspirin (Aspirin Enteric Coated 81 Mg Tablet.) 81 mg PO DAILY [facility] Last Admin: 03/30/22 07:33 Dose: 81 mg Documented By: SURAJ Atorvastatin Calcium (Atorvastatin Calcium 10 Mg Tablet) 10 mg PO BEDTIME [facility] Last Admin: 03/29/22 20:59 Dose: 10 mg Documented By: IZABELLA Clonidine HCl (Clonidine Hcl 0.1 Mg Tablet) 0.1 mg PO TID PRN; Protocol PRN Reason: hyperarousal, anxiety, panic Last Admin: 03/30/22 07:33 Dose: 0.1 mg Documented By: SURAJ Enoxaparin Sodium (Enoxaparin Sodium 40 Mg/0.4 Ml Syringe) 40 mg SUBCUT Q24H [facility] Last Admin: 03/30/22 07:52 Dose: 40 mg Documented By: SURAJ Fluoxetine HCl (Fluoxetine Hcl 20 Mg Capsule) 40 mg PO DAILY [facility] Last Admin: 03/30/22 07:32 Dose: 40 mg Documented By: SURAJ Fluticasone Propionate (Fluticasone Propionate 100 Mcg Blst.W.Dev) 2 puff INHALE RBID [facility] Last Admin: 03/30/22 07:49 Dose: Not Given Documented By: SURAJ Non-Admin Reason: Patient Refused Furosemide (Furosemide 20 Mg Tablet) 20 mg PO DAILY [facility]; Protocol Last Admin: 03/30/22 07:52 Dose: 20 mg Documented By: SURAJ Comments: Gabapentin (Gabapentin 400 Mg Capsule) 800 mg PO BEDTIME [facility] Last Admin: 03/29/22 20:59 Dose: 800 mg Documented By: IZABELLA Gabapentin (Gabapentin 400 Mg Capsule) 400 mg PO BID@0900,1200 [facility] Last Admin: 03/30/22 12:09 Dose: 400 mg Documented By: SURAJ Doxycycline Hyclate 100 mg/ (Sodium Chloride) 250 mls @ 166.67 mls/hr IV Q12H [facility] Last Admin: 03/30/22 12:08 Dose: 166.67 mls/hr Documented By: SURAJ Insulin Glargine (Insulin Glargine,Hum.Rec.Anlog 100 Unit/Ml 10 Ml Vial) 50 unit SUBCUT BEDTIME [facility] Last Admin: 03/29/22 20:59 Dose: 50 unit Documented By: IZABELLA Insulin Human Lispro (Insulin Lispro 100 Unit/Ml 3 Ml Vial) 0 unit SUBCUT QIDACHS [facility]; Protocol Last Admin: 03/30/22 12:09 Dose: 4 unit Documented By: SURAJ Isosorbide Mononitrate (Isosorbide Mononitrate 30 Mg Tab.Er.24h) 30 mg PO DAILY [facility]; Protocol Last Admin: 03/30/22 07:52 Dose: 30 mg Documented By: SURAJ Comments: -113/75 Meclizine HCl (Meclizine Hcl 25 Mg Tablet) 25 mg PO TID PRN PRN Reason: Dizziness Metoprolol Succinate (Metoprolol Succinate Er 50 Mg Tab.Er.24h) 50 mg PO DAILY [facility]; Protocol Last Admin: 03/30/22 07:52 Dose: 50 mg Documented By: SURAJ Comments: [id number] Nystatin (Nystatin Powder 15 Gm Bottle) 1 appl TOPICAL BID [facility]; Protocol Last Admin: 03/30/22 07:33 Dose: 1 appl Documented By: SURAJ Omeprazole (Omeprazole 20 Mg Capsule.Dr) 20 mg PO BEDTIME [facility] Last Admin: 03/29/22 21:00 Dose: 20 mg Documented By: IZABELLA Pharmacy Consult (Consult Rx Perform Med Rec) 1 each MISCELLANE ONCE PRN PRN Reason: Consult order Pharmacy Consult (Consult Rx Vancomycin Dosing) 1 each MISCELLANE DAILY PRN PRN Reason: Consult order Polyethylene Glycol (Polyethylene Glycol 3350 17 Gm Powd.Pack) 17 gm PO DAILY PRN PRN Reason: constipation Pregabalin (Pregabalin 100 Mg Capsule) 100 mg PO BID [facility] Last Admin: 03/30/22 07:34 Dose: 100 mg Documented By: SURAJ Risperidone (Risperidone 0.5 Mg Tablet) 0.5 mg PO BID [facility] Last Admin: 03/30/22 07:32 Dose: 0.5 mg Documented By: SURAJ Sodium Chloride (0.9 % Sodium Chloride Flush 3 Ml Syringe) [facility] Last Admin: 03/30/22 12:09 Dose: 3 ml Documented By: SURAJ Tizanidine HCl (Tizanidine Hcl 4 Mg Tablet) 4 mg PO DAILY@1600 [facility] Last Admin: 03/29/22 16:40 Dose: 4 mg Documented By: SURAJ Vitamin D (Cholecalciferol (Vitamin D3) 25 Mcg Tablet) 25 mcg PO DAILY [facility] Last Admin: 03/30/22 07:33 Dose: 25 mcg Documented By: SURAJ Labs CBC & Chem 7: 03/28/22 06:11 03/30/22 06:03 Labs: Laboratory Results - last 24 hr 03/29/22 03/29/22 03/29/22 16:00 16:01 16:01 Anion Gap 15 Estim Creat Clear Calc 62.1 Estimated GFR 42 POC Glucose 210 H Random Glucose 245 H Calcium 7.9 L Vancomycin Trough 19.2 03/29/22 03/30/22 03/30/22 19:37 06:03 07:48 Anion Gap Estim Creat Clear Calc 53.4 Estimated GFR 35 POC Glucose 226 H 183 H Random Glucose Calcium Vancomycin Trough 03/30/22 11:31 Anion Gap Estim Creat Clear Calc Estimated GFR POC Glucose 232 H Random Glucose Calcium Vancomycin Trough Assessment and Plan (1) Panic disorder: Status: Acute (2) Cellulitis of right lower extremity: Status: Acute (3) Stasis dermatitis of both legs: Status: Acute (4) DANIEL (obstructive sleep apnea): Status: Acute (5) Morbid obesity: Status: Acute Plan 61 year old female with history of 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 Acute recurrent RLE cellulitis- intermittent recurrence ongoing since 2019. Treated at [facility] with IV unasyn recently H/o chronic venous stasis dermatitis Venous deplex negative for DVT. Xray R ankle neg for osseous abnormality including osteomyelitis -initially treated with vanco, will transition to doxycycline -seen by ID- may be more venous stasis she then cellulitis, recommend transition to p.o. doxycycline on discharge for 14 days and then PCN prophylaxis - outpatient follow up with ID -keep leg elevated, use diallo wrap -repeat DVT study negative for DVT Depression/anxiety with agitation Patient with episodes of what she describes as severe anxiety/panic. seen by psych, meds adjusted still having shouting/anxiety episodes yesterday, does not appear to have hallucinations today. does not meet criteria for IP psych at this time Hyperklemia resolved Lethargy resolved Acute on chronic normocytic anemia iron studies,b12, folate ok CBC stable Insulin dependent Type 2 diabetes -continue ADA diet -continue home dose of Lantus -continue SSI HTN- -Continue amlodipine, isosorbide HLD -Continue simvastatin HFrEF- stable -Recent admission to [facility]. Echo on 03/10 with grade 2 diastolic dysfunction with EF 25-35%. -CXR with some vascular congestion. Pt denies sob -resume Lasix, discontinue Bumex as per d/c note from [facility] Asthma/COPD with chronic respiratory failure on prn home O2 -resume nocturnal cpap - not compliant here or at home - 2L NC at night -Duonebs prn Diabetic neuropathy -Continue lyrica Morbid obesity BMI 55.8 contributing to chronic respiratory issues -low calorie diabetic diet DVT prophylaxis- lovenox dispo - seen by PT - rec STR, patient wants to go home, will need VNA, home PT - possibly tomorrow Full code patient requires ongoing inpatient hospitalization due to treatment of right low er extremity cellulitis, eval for anxiety Quality Stroke Does the patient have a stroke diagnosis?: No VTE Prior VTE?: No VTE Risk Level:: Medical - moderate - high VTE Device Contraindication: Treatment Not Indicated VTE Drug Contraindication: N/A - Med Ordered
--- NOTE | 2022-03-30 15:52 | PC.NURSE ---
Gave report to Anahi Cunningham RN assuming care of patient on medsurg. Patient being transferred via bed and LOUIE Cowan at this time.
[2022-03-30 16:00] VITALS: BP 133/58; PULSE 78; RESP 15; TEMP 36.2; O2SAT 95
[2022-03-30 16:27] LABS: Vancomycin Random 18.4 mcg/mL (15-20)
[2022-03-30] MEDS: TiZANidine HCL 4 MG TABLET PO (18:02)
[2022-03-30 18:11] LABS: Glucose, Whole Blood 171 mg/dL (60-115)
[2022-03-30 19:56] LABS: Glucose, Whole Blood 194 mg/dL (60-115)
[2022-03-30] MEDS: Atorvastatin Calcium 10 MG TABLET PO (20:16)
[2022-03-30] MEDS: Gabapentin 400 MG CAPSULE 800 MG PO (20:17)
[2022-03-30] MEDS: Insulin Glargine,Hum.rec.anlog 100 UNIT/ML 10 ML VIAL 50 UNIT SUBCUT (20:17)
[2022-03-30] MEDS: Omeprazole 20 MG CAPSULE.DR PO (20:17)
[2022-03-30 23:44] VITALS: BP 104/60; PULSE 84; RESP 16; TEMP 36.6; O2SAT 93
[2022-03-31] VITALS (7 sets, daily range): BP systolic 113–142; BP diastolic 47–74; PULSE 84–93; RESP 16–22; TEMP 36.6–36.7; O2SAT 90–95
[2022-03-31] MEDS: cloNIDine HCL 0.1 MG TABLET PO (00:10)
[2022-03-31] MEDS: traZODone HCL 50 MG TABLET PO (01:34)
[2022-03-31] MEDS: hydrOXYzine HCL 25 MG TABLET PO (01:37)
--- NOTE | 2022-03-31 02:03 | MHC.PIE ---
p; pt found multiple times yelling out in room, screaming for food, drink light and etc. pt noted with anxiety, agitation and restlessness c/o insominia. prn clonidine given with little to no effect i; dr novak notified; new order atarax now, des[facility]rel now e; [facility]
[2022-03-31 06:32] LABS: Anion Gap 13 (12-20); Blood Urea Nitrogen 63 mg/dL (9-16); Calcium 7.8 mg/dL (8.4-10.2); Carbon Dioxide 25 mmol/L (22-29); Chloride 109 mmol/L (96-108); Estimated Glomerular Filt Rate 37; Glucose Random 199 mg/dL (60-115); Potassium 5.3 mmol/L (3.3-5.1); Sodium 142 mmol/L (135-145)
[2022-03-31 07:10] LABS: Glucose, Whole Blood 161 mg/dL (60-115)
[2022-03-31] MEDS: 0.9 % Sodium Chloride Flush 3 ML SYRINGE IVFLUSH ×2 (07:57→20:32)
[2022-03-31] MEDS: risperiDONE 0.5 MG TABLET PO ×2 (07:57→20:32)
[2022-03-31] MEDS: Metoprolol Succinate ER 50 MG TAB.ER.24H PO (07:57)
[2022-03-31] MEDS: Insulin Lispro 100 UNIT/ML 3 ML VIAL SUBCUT ×4 (07:57→20:32)
[2022-03-31] MEDS: Cholecalciferol (Vitamin D3) 25 MCG TABLET PO (07:58)
[2022-03-31] MEDS: Pregabalin 100 MG CAPSULE PO ×2 (07:58→20:32)
[2022-03-31] MEDS: Gabapentin 400 MG CAPSULE PO ×2 (07:58→12:41)
[2022-03-31] MEDS: FLUoxetine HCl 20 MG CAPSULE 40 MG PO (07:58)
[2022-03-31] MEDS: Furosemide 20 MG TABLET PO (07:58)
[2022-03-31] MEDS: Isosorbide Mononitrate 30 MG TAB.ER.24H PO (07:58)
[2022-03-31] MEDS: Aspirin Enteric Coated 81 MG TABLET.DR PO (07:58)
[2022-03-31] MEDS: Nystatin Powder 15 GM BOTTLE 1 APPL TOPICAL ×2 (07:59→21:17)
[2022-03-31] MEDS: Enoxaparin Sodium 40 MG/0.4 ML SYRINGE SUBCUT (07:59)
[2022-03-31] MEDS: amLODIPine Besylate 10 MG TABLET PO (07:59)
[2022-03-31 11:29] LABS: Glucose, Whole Blood 217 mg/dL (60-115)
[2022-03-31] MEDS: Doxycycline Hyclate 100 MG in 0.9 % Sodium Chloride 250 ML 166.67 MG IV (12:41)
--- NOTE | 2022-03-31 13:19 | P.PNIM_ITS ---
Subjective Subjective Date of Service: 03/31/22 Interval History: follow up for right leg cellulitis low o2 overnight, chronic has not been using CPAP due to anxiety/inability to tolerate - also states that she does not use at home although she does have machine Review of Systems Review of Systems: Yes all other systems are reviewed and are negative Constitutional Constitutional: Denies chills and Denies fever(s) ENT Ears, Nose, Mouth, and Throat: Denies dizziness Cardiovascular Cardiovascular: Denies chest pain and Denies dyspnea Respiratory Respiratory: Denies dyspnea Gastrointestinal Gastrointestinal: Denies abdominal pain, Denies nausea and Denies vomiting Neurologic Neurologic: Denies dizziness Physical Exam Vital Signs: Vital Signs: Last Vital Signs Temp 98 F 03/31/22 06:51 Pulse 88 03/31/22 06:51 Resp 22 H 03/31/22 06:51 BP 142/74 H 03/31/22 06:51 Pulse Ox 90 L 03/31/22 06:51 O2 Del Method 03/31/22 06:51 O2 Flow Rate 2 03/31/22 06:51 BMI result Body Mass Index 55.8 Appearing in no acute distress lung sounds are clear to auscultation heart regular rate rhythm, clear S1, S2 positive bowel sounds, abdomen is soft, nontender, obese neuro patient is alert x3, no focal deficits Objective Data Active Medications Acetaminophen (Acetaminophen 325 Mg Tablet) 650 mg PO Q6H PRN PRN Reason: Pain, Mild (Pain Scale 1-3) Last Admin: 03/30/22 07:32 Dose: 650 mg Documented By: CHELO-RICH Albuterol/Ipratropium (Albuterol/Iprat 2.5/0.5mg 3 Ml Ampul.Neb) 3 ml INHALE RQ6H PRN PRN Reason: Shortness of Breath/Wheezing Last Admin: 03/27/22 16:13 Dose: 3 ml Documented By: TIFFANIE Amlodipine Besylate (Amlodipine Besylate 10 Mg Tablet) 10 mg PO DAILY [facility]; Pro tocol Last Admin: 03/31/22 07:59 Dose: 10 mg Documented By: RAYMUNDO Aspirin (Aspirin Enteric Coated 81 Mg Tablet.) 81 mg PO DAILY [facility] Last Admin: 03/31/22 07:58 Dose: 81 mg Documented By: RAYMUNDO Atorvastatin Calcium (Atorvastatin Calcium 10 Mg Tablet) 10 mg PO BEDTIME [facility] Last Admin: 03/30/22 20:16 Dose: 10 mg Documented By: ALANNAH Clonidine HCl (Clonidine Hcl 0.1 Mg Tablet) 0.1 mg PO TID PRN; Protocol PRN Reason: hyperarousal, anxiety, panic Last Admin: 03/31/22 00:10 Dose: 0.1 mg Documented By: ALANNAH Enoxaparin Sodium (Enoxaparin Sodium 40 Mg/0.4 Ml Syringe) 40 mg SUBCUT Q24H [facility] Last Admin: 03/31/22 07:59 Dose: 40 mg Documented By: RAYMUNDO Fluoxetine HCl (Fluoxetine Hcl 20 Mg Capsule) 40 mg PO DAILY [facility] Last Admin: 03/31/22 07:58 Dose: 40 mg Documented By: RAYMUNDO Fluticasone Propionate (Fluticasone Propionate 100 Mcg Blst.W.Dev) 2 puff INHALE RBID [facility] Last Admin: 03/31/22 08:18 Dose: Not Given Documented By: DANIELA Non-Admin Reason: Med Not Available Furosemide (Furosemide 20 Mg Tablet) 20 mg PO DAILY [facility]; Protocol Last Admin: 03/31/22 07:58 Dose: 20 mg Documented By: RAYMUNDO Gabapentin (Gabapentin 400 Mg Capsule) 800 mg PO BEDTIME [facility] Last Admin: 03/30/22 20:17 Dose: 800 mg Documented By: ALANNAH Gabapentin (Gabapentin 400 Mg Capsule) 400 mg PO BID@0900,1200 [facility] Last Admin: 03/31/22 12:41 Dose: 400 mg Documented By: RAYMUNDO Doxycycline Hyclate 100 mg/ (Sodium Chloride) 250 mls @ 166.67 mls/hr IV Q12H [facility] Last Admin: 03/31/22 12:41 Dose: 166.67 mls/hr Documented By: RAYMUNDO Insulin Glargine (Insulin Glargine,Hum.Rec.Anlog 100 Unit/Ml 10 Ml Vial) 50 unit SUBCUT BEDTIME [facility] Last Admin: 03/30/22 20:17 Dose: 50 unit Documented By: ALANNAH Insulin Human Lispro (Insulin Lispro 100 Unit/Ml 3 Ml Vial) 0 unit SUBCUT QIDACHS [facility]; Protocol Last Admin: 03/31/22 12:41 Dose: 4 unit Documented By: RAYMUNDO Isosorbide Mononitrate (Isosorbide Mononitrate 30 Mg Tab.Er.24h) 30 mg PO DAILY [facility]; Protocol Last Admin: 03/31/22 07:58 Dose: 30 mg Documented By: RAYMUNDO Meclizine HCl (Meclizine Hcl 25 Mg Tablet) 25 mg PO TID PRN PRN Reason: Dizziness Metoprolol Succinate (Metoprolol Succinate Er 50 Mg Tab.Er.24h) 50 mg PO DAILY [facility]; Protocol Last Admin: 03/31/22 07:57 Dose: 50 mg Documented By: RAYMUNDO Nystatin (Nystatin Powder 15 Gm Bottle) 1 appl TOPICAL BID [facility]; Protocol Last Admin: 03/31/22 07:59 Dose: 1 appl Documented By: RAYMUNDO Omeprazole (Omeprazole 20 Mg Capsule.Dr) 20 mg PO BEDTIME [facility] Last Admin: 03/30/22 20:17 Dose: 20 mg Documented By: ALANNAH Pharmacy Consult (Consult Rx Perform Med Rec) 1 each MISCELLANE ONCE PRN PRN Reason: Consult order Pharmacy Consult (Consult Rx Vancomycin Dosing) 1 each MISCELLANE DAILY PRN PRN Reason: Consult order Polyethylene Glycol (Polyethylene Glycol 3350 17 Gm Powd.Pack) 17 gm PO DAILY PRN PRN Reason: constipation Pregabalin (Pregabalin 100 Mg Capsule) 100 mg PO BID [facility] Last Admin: 03/31/22 07:58 Dose: 100 mg Documented By: RAYMUNDO Risperidone (Risperidone 0.5 Mg Tablet) 0.5 mg PO BID [facility] Last Admin: 03/31/22 07:57 Dose: 0.5 mg Documented By: RAYMUNDO Sodium Chloride (0.9 % Sodium Chloride Flush 3 Ml Syringe) 3 ml IVFLUSH QSHIFT [facility] Last Admin: 03/31/22 07:57 Dose: 3 ml Documented By: RAYMUNDO Tizanidine HCl (Tizanidine Hcl 4 Mg Tablet) 4 mg PO DAILY@1600 [facility] Last Admin: 03/30/22 18:02 Dose: 4 mg Documented By: CHRISTEL Vitamin D (Cholecalciferol (Vitamin D3) 25 Mcg Tablet) 25 mcg PO DAILY [facility] Last Admin: 03/31/22 07:58 Dose: 25 mcg Documented By: RAYMUNDO Labs CBC & Chem 7: 03/28/22 06:11 03/31/22 05:12 Labs: Laboratory Results - last 24 hr 03/30/22 03/30/22 03/30/22 15:49 17:58 19:21 Anion Gap Estim Creat Clear Calc Estimated GFR POC Glucose 171 H 194 H Random Glucose Calcium Random Vancomycin 18.4 03/31/22 03/31/22 03/31/22 05:12 06:52 11:23 Anion Gap 13 Estim Creat Clear Calc 56.0 Estimated GFR 37 POC Glucose 161 H 217 H Random Glucose 199 H Calcium 7.8 L Random Vancomycin Assessment and Plan (1) Panic disorder: Status: Acute (2) Cellulitis of right lower extremity: Status: Acute (3) Stasis dermatitis of both legs: Status: Acute (4) DANIEL (obstructive sleep apnea): Status: Acute (5) Morbid obesity: Status: Acute Plan 61 year old female with history of 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 Acute recurrent RLE cellulitis- intermittent recurrence ongoing since 2019. Treated at [facility] with IV unasyn recently H/o chronic venous stasis dermatitis Venous deplex negative for DVT. Xray R ankle neg for osseous abnormality including osteomyelitis initially treated with vanco, will transition to doxycycline seen by ID- may be more venous stasis she then cellulitis, recommend transition to p.o. doxycycline on discharge for 14 days and then PCN prophylaxis - outpatient follow up with ID keep leg elevated, use diallo wrap repeat DVT study negative for DVT Depression/anxiety with agitation Patient with episodes of what she describes as severe anxiety/panic. seen by psych, meds adjusted still having shouting/anxiety episodes yesterday, does not appear to have hallucinations today. does not meet criteria for IP psych at this time Hyperklemia. 5.3 lokelma watch overnight CKD 3 Baseline Recently admitted to [facility] for temporary dialysis Acute on chronic normocytic anemia iron studies,b12, folate ok CBC stable Insulin dependent Type 2 diabetes Sliding scale, ADA diet, continue Lantus HTN- Continue amlodipine, isosorbide HLD Continue statin HFrEF Stable with no exacerbation Recent admission to [facility]. Echo on 03/10 with grade 2 diastolic dysfunction with EF 25-35%. CXR with some vascular congestion. Pt denies sob resume Lasix, discontinue Bumex as per d/c note from [facility] Asthma/COPD with chronic respiratory failure on prn home O2 resume nocturnal cpap - not compliant here or at home - 2L NC at night Duonebs prn Diabetic neuropathy Continue home medication Morbid obesity BMI 55.8 Discussed importance of weight management as this may be contributing to worsening of other comorbidities DVT prophylaxis- lovejessicax Attending Dr. Sharma Full code dispo - seen by PT - rec STR, patient wants to go home, will need VNA, home PT - possibly tomorrow patient requires ongoing inpatient hospitalization due to treatment of right lower extremity cellulitis, eval for anxiety Quality Stroke Does the patient have a stroke diagnosis?: No VTE Prior VTE?: No VTE Risk Level:: Medical - moderate - high VTE Device Contraindication: Treatment Not Indicated VTE Drug Contraindication: N/A - Med Ordered
--- NOTE | 2022-03-31 14:22 | MHC.CM.PN ---
EMR REVIEW PATIENT CONTINUES TO NEED INPATIENT HOSPITALIZATION R/T NEEDED TREATMENT OF RIGHT LOWER EXTREMITY CELLULITIS AND MONITORING. ANTICIPATE DISCHARGE HOME 04/01 WITH [facility]. CM WILL FOLLOW FOR DISCHARGE NEEDS.
--- NOTE | 2022-03-31 14:33 | P.CDIC_ITS ---
CDI Concurrent Query Documentation Clarification: PHYSICIAN'S DOCUMENTATION REQUEST Date of Query: 03/31/22 1434 Patient Name: Lupis Mueller Admit Date: 03/27/22 Dear Doctor, Please review the following and provide your response in the progress notes. Clinical Indicators: The diagnosis of asthma was documented in the record on 03/31/22. Additional clinical indicators from the record include: Risk Factors/Clinical Indicators/Treatments Asthma/COPD with chronic respiratory failure on prn home O2 resume nocturnal cpap - not compliant here or at home - 2L NC at night Duonebs prn Based on the above, please clarify in the Progress Notes further specificity regarding the type and acuity of the asthma: Type: * Mild intermittent - less than 2x/week * Mild persistent - more than 2x/week but not daily * Moderate persistent - daily and may restrict physical activity * Severe persistent - throughout the day with frequent attacks, limiting activities * Exercise induced * Other ? please specify * Unable to determine Acuity: * With acute exacerbation * With status asthmaticus * Uncomplicated * Unable to determine Use of terms such as suspected, likely, concern for, or probable (associated with a specific diagnosis that is being evaluated, monitored, or treated as if it exists) are acceptable and can be coded in the inpatient setting, when documented at the time of discharge. Thank you, Lisa Marvin RN Extension: [phone] Please use your independent medical judgment in providing your response. THIS QUERY IS PART OF THE PERMANENT MEDICAL RECORD Other Diagnosis: Mild intermittent
[2022-03-31 16:50] LABS: Glucose, Whole Blood 154 mg/dL (60-115)
[2022-03-31] MEDS: TiZANidine HCL 4 MG TABLET PO (18:00)
[2022-03-31 20:18] LABS: Glucose, Whole Blood 152 mg/dL (60-115)
[2022-03-31] MEDS: Omeprazole 20 MG CAPSULE.DR PO (20:32)
[2022-03-31] MEDS: Atorvastatin Calcium 10 MG TABLET PO (20:32)
[2022-03-31] MEDS: Gabapentin 400 MG CAPSULE 800 MG PO (20:32)
[2022-03-31] MEDS: Insulin Glargine,Hum.rec.anlog 100 UNIT/ML 10 ML VIAL 50 UNIT SUBCUT (20:33)
[2022-03-31] MEDS: Albuterol/Iprat 2.5/0.5MG 3 ML AMPUL.NEB INHALE (23:38)
--- NOTE | 2022-03-31 23:49 | PC.NURSE ---
Pt's [id number]% on 2L.Pt drowsy encouraged deep breathing 02sat 86%.Increased o2 to 3.5L 88%.Called resp to give ud tx after tx [id number]% on 3.5L
[2022-04-01] VITALS (11 sets, daily range): BP systolic 92–142; BP diastolic 50–80; PULSE 72–90; RESP 16–20; TEMP 36.3–36.9; O2SAT 86–95
[2022-04-01] MEDS: cloNIDine HCL 0.1 MG TABLET PO ×2 (05:10→11:37)
[2022-04-01 07:31] LABS: Glucose, Whole Blood 116 mg/dL (60-115)
[2022-04-01] MEDS: 0.9 % Sodium Chloride Flush 3 ML SYRINGE IVFLUSH ×3 (07:53→20:34)
[2022-04-01] MEDS: Aspirin Enteric Coated 81 MG TABLET.DR PO (07:53)
[2022-04-01] MEDS: Nystatin Powder 15 GM BOTTLE 1 APPL TOPICAL ×2 (07:53→20:41)
[2022-04-01] MEDS: amLODIPine Besylate 10 MG TABLET PO (07:54)
[2022-04-01] MEDS: Cholecalciferol (Vitamin D3) 25 MCG TABLET PO (07:54)
[2022-04-01] MEDS: Gabapentin 400 MG CAPSULE PO ×2 (07:54→11:35)
[2022-04-01] MEDS: Metoprolol Succinate ER 50 MG TAB.ER.24H PO (07:54)
[2022-04-01] MEDS: Isosorbide Mononitrate 30 MG TAB.ER.24H PO (07:54)
[2022-04-01] MEDS: Pregabalin 100 MG CAPSULE PO ×2 (07:54→20:35)
[2022-04-01] MEDS: risperiDONE 0.5 MG TABLET PO ×2 (07:54→20:35)
[2022-04-01] MEDS: Furosemide 20 MG TABLET PO (07:55)
[2022-04-01] MEDS: FLUoxetine HCl 20 MG CAPSULE 40 MG PO (07:55)
--- NOTE | 2022-04-01 08:07 | PM.DS ---
DS: Providers Provider Date of Service: 04/01/22 Date of admission: 03/27/22 13:38 Primary care physician: Tavo Huber MD Consults: 03/26/22 09:29 Consult to Infectious Diseases Routine Consulting Provider: Gina Macedo Reason for consultation: cellulitis, not improving, treated with Unasyn at [facility] last week 03/28/22 10:52 Consult to Psychiatry Routine Consulting Provider: Psych Covering Reason for consultation: anxiety/panic Has provider been notified: No Attending physician on discharge: Hood Sharma Discharging clinician: Johana Francis DS: Diagnosis Discharge Diagnosis (1) Panic disorder: Status: Acute (2) Cellulitis of right lower extremity: Status: Acute (3) Stasis dermatitis of both legs: Status: Acute (4) DANIEL (obstructive sleep apnea): Status: Acute (5) Morbid obesity: Status: Acute DS: Summary Hospital Course Hospital Course: HP as per admitting provider 61 year old female with history of uncontrolled insulin dependent type 2 diabetes with pvd and neuropathy, chronic venous stasis dermatitis, asthma/COPD overlap with chronic respiratory failure on prn home O2, nonischemic cardiomyopathy, htn, hld, and morbid obesity presented to the ED this morning for evaluation of redness and swelling RLE which has been flaring intermittently since 2019 worsening prior to admission to [facility] last week. She was admitted for acute on chronic CHF. She also developed hyperkalemia with temporary dialysis catheter placed but was dialyzed twice with resolution of FELICIA and hyperkalemia. Now on furosemide BID. Required O2 while hospitalized but sob improved and is back to baseline. She was also treated with unasyn while admitted for RLE cellulitis. Not discharged on oral abx. She feels this has not improved. She reports chronic 10/10 pain of the right knee and ankle, but no pain in the banuelos or calf.? No leukocytosis. Afebrile. Vitals stable, pt currently on 1L O2 nc O2 sat 93%. Venous duplex negative for DVT. Ankle xray negative for acute osseous abnormality including? osteomyelitis or septic arthritis. CXR with some degree of pulmonary congestion, but no effusions. Denies sob, cp . Acute recurrent RLE cellulitis- intermittent recurrence ongoing since 2019. Treated at [facility] with IV unasyn recently H/o chronic venous stasis dermatitis Venous deplex negative for DVT. Xray R ankle neg for osseous abnormality including osteomyelitis initially treated with vanco, will transition to doxycycline seen by ID- may be more venous stasis she then cellulitis, recommend transition to p.o. doxycycline on discharge for 14 days and then PCN prophylaxis - outpatient follow up with ID keep leg elevated, use tanmay wrap Depression/anxiety with agitation Patient with episodes of what she describes as severe anxiety/panic. seen by psych, meds adjusted does not meet criteria for IP psych at this time Discussed with daughter, stated that this behavior is baseline Hyperklemia. 5.3 lokelma watch overnight CKD 3 Baseline Recently admitted to [facility] for temporary dialysis Acute on chronic normocytic anemia iron studies,b12, folate ok CBC stable Insulin dependent Type 2 diabetes Sliding scale, ADA diet, continue Lantus HTN- Continue amlodipine, isosorbide HLD Continue statin HFrEF Stable with no exacerbation Recent admission to [facility]. Echo on 03/10 with grade 2 diastolic dysfunction with EF 25-35%. CXR with some vascular congestion. Pt denies sob resume Lasix, discontinue Bumex as per d/c note from [facility] Asthma/COPD with chronic respiratory failure on prn home O2 resume nocturnal cpap - not compliant here or at home - 2L NC at night Duonebs prn Diabetic neuropathy Continue home medication Morbid obesity BMI 55.8 Discussed importance of weight management as this may be contributing to worsening of other comorbidities Time Spent with Patient Time attestation: Total time spent providing and/or coordinating discharge services: Physical Exam Vital Signs: Vital Signs: Last Vital Signs Temp 97.3 F 04/01/22 07:03 Pulse 85 04/01/22 07:03 Resp 20 04/01/22 07:03 BP 108/77 04/01/22 07:03 Pulse Ox 94 04/01/22 07:03 O2 Del Method 04/01/22 07:03 O2 Flow Rate 4 04/01/22 07:03 BMI result Body Mass Index 55.8 Appearing in no acute distress head is normocephalic atraumatic eyes pupils are PERRLA sclera is anicteric mouth throat mucous membranes are intact and moist neck is supple no lymphadenopathy, no JVD noted lung sounds are clear to auscultation heart regular rate rhythm, clear S1, S2 positive bowel sounds, abdomen is soft, nontender neuro patient is alert x3, no focal deficits Chronic venous stasis changes to lower extremities with Tanmay wraps DS: Data Data Completed and Pending Completed studies during hospitalization [Text1]: Procedures Assistance with Respiratory Ventilation, Less than 24 Consecutive Hours, Continuous Positive Airway Pressure (12/11/20) Labs on day of discharge: Laboratory Results - last 24 hr 03/31/22 03/31/22 03/31/22 11:23 16:45 19:31 POC Glucose 217 H 154 H 152 H 04/01/22 07:09 POC Glucose 116 H Discharge Plan Discharge Anticipated Discharge Date/Time: 04/01/22 08:03 Patient Disposition: Home, Self-Care Discharge Diagnosis: Cellulitis Referrals: Tavo Huber MD [Primary Care Provider] - 1 Week Gina Macedo MD [Physician] - 1 Week Discharge Medications: New clonidine HCl 0.1 mg Tablet 0.1 mg PO TID PRN (Reason: hyperarousal, anxiety, panic) Qty: 90 0RF Protocol: Hold for SBP< HOLD for SBP < : 90 risperidone 0.5 mg Tablet 0.5 mg PO BID Qty: 60 0RF doxycycline hyclate 100 mg Tablet 100 mg PO Q12H Qty: 24 0RF Continued gabapentin 400 mg capsule 400 mg PO BID@0900,1200 ipratropium-albuterol 0.5 mg-3 mg(2.5 mg base)/3 mL Solution For Nebulization 3 ml inhalation RQ4H WHILE AWAKE PRN (Reason: Shortness Of Breath/Wheezing) Qty: 1 0RF insulin lispro [Humalog U-100 Insulin] 100 unit/mL Solution See Protocol subcut QIDACHS Qty: 1 0RF Protocol: Insulin Correction Scale Less than or equal to 110 ---- Give (units): 0 111 to 150 Give (units): 0 151 to 200 Give (units): 2 201 to 250 Give (units): 4 251 to 300 Give (units): 6 301 to 350 Give (units): 8 Greater than 350 Give (units): 10 Call MD if Blood Glucose > : 350 fluoxetine 40 mg capsule 40 mg PO DAILY metoprolol succinate 50 mg tablet extended release 24 hr 50 mg PO DAILY aspirin 81 mg tablet,delayed release (DR/EC) 81 mg PO DAILY simvastatin 20 mg tablet 20 mg PO BEDTIME omeprazole 20 mg capsule,delayed release(DR/EC) 20 mg PO BEDTIME Rx Instructions: PT TAKES BEDTIME albuterol sulfate [ProAir HFA] 90 mcg/actuation HFA aerosol inhaler 2 puff inhalation Q4H PRN (Reason: Dyspnea) fluticasone propionate [Flovent HFA] 110 mcg/actuation HFA aerosol inhaler 2 puff inhalation BID tizanidine 4 mg Tablet 4 mg PO BEDTIME isosorbide mononitrate 30 mg Tablet Extended Release 24 Hr 30 mg PO DAILY insulin glargine [Lantus U-100 Insulin] 100 unit/mL solution 80 unit subcut BEDTIME bumetanide 2 mg tablet 1 tab PO DAILY amlodipine 10 mg tablet 1 tab PO DAILY cholecalciferol (vitamin D3) 25 mcg (1,000 unit) capsule 1 cap PO DAILY meclizine 25 mg Tablet 25 mg PO TID PRN (Reason: Dizziness) gabapentin 400 mg capsule 800 mg PO BEDTIME pregabalin 100 mg capsule 1 cap PO BID furosemide 20 mg tablet 1 tab PO DAILY haloperidol 2 mg tablet 1 tab PO BEDTIME Discharge Orders: Discharge Order (Routine); Ordered 04/01/22 Ordered By: Johana Francis Diet: Advance to usual diet Activity on Discharge: As tolerated Stand Alone Forms: Patient Portal Discharge page Care Plan Goals: Continue monitoring lower extremities, wound care as needed Health Concerns: Cellulitis Plan of Treatment: Follow-up with primary care provider as needed Can use Tanmay wraps for lower extremities follow-up with Infectious Disease provider as an outpatient Assessment: See discharge summary
[2022-04-01 08:48] LABS: Anion Gap 12 (12-20); Blood Urea Nitrogen 69 mg/dL (9-16); Calcium 7.9 mg/dL (8.4-10.2); Carbon Dioxide 26 mmol/L (22-29); Chloride 110 mmol/L (96-108); Estimated Glomerular Filt Rate 35; Glucose Random 124 mg/dL (60-115); Sodium 143 mmol/L (135-145)
[2022-04-01] MEDS: Fluticasone Propionate 100 MCG BLST.W.DEV 2 PUFF INHALE (08:58)
[2022-04-01] MEDS: Enoxaparin Sodium 40 MG/0.4 ML SYRINGE SUBCUT (09:53)
[2022-04-01 12:07] LABS: Glucose, Whole Blood 98 mg/dL (60-115)
--- NOTE | 2022-04-01 12:36 | HO.PM.IMPN ---
Subjective Subjective Date of Service: 04/01/22 Interval History: follow up for right leg cellulitis low o2 overnight, chronic has not been using CPAP due to anxiety/inability to tolerate - also states that she does not use at home although she does have machine Review of Systems Review of Systems: Yes all other systems are reviewed and are negative Constitutional Constitutional: Denies chills and Denies fever(s) ENT Ears, Nose, Mouth, and Throat: Denies dizziness Cardiovascular Cardiovascular: Denies chest pain and Denies dyspnea Respiratory Respiratory: Denies dyspnea Gastrointestinal Gastrointestinal: Denies abdominal pain, Denies nausea and Denies vomiting Neurologic Neurologic: Denies dizziness Physical Exam Vital Signs: Vital Signs: Last Vital Signs Temp 97.3 F 04/01/22 07:03 Pulse 74 04/01/22 08:58 Resp 16 04/01/22 08:58 BP 108/77 04/01/22 07:03 Pulse Ox 94 04/01/22 07:03 O2 Del Method 04/01/22 07:03 O2 Flow Rate 4 04/01/22 07:03 BMI result Body Mass Index 55.8 Appearing in no acute distress lung sounds are clear to auscultation heart regular rate rhythm, clear S1, S2 positive bowel sounds, abdomen is soft, nontender neuro patient is alert x3, no focal deficits Objective Data Active Medications Acetaminophen (Acetaminophen 325 Mg Tablet) 650 mg PO Q6H PRN PRN Reason: Pain, Mild (Pain Scale 1-3) Last Admin: 03/30/22 07:32 Dose: 650 mg Documented By: SURAJ Albuterol/Ipratropium (Albuterol/Iprat 2.5/0.5mg 3 Ml Ampul.Neb) 3 ml INHALE RQ6H PRN PRN Reason: Shortness of Breath/Wheezing Last Admin: 03/31/22 23:38 Dose: 3 ml Documented By: STEWART Amlodipine Besylate (Amlodipine Besylate 10 Mg Tablet) 10 mg PO DAILY [facility]; Protocol Last Admin: 04/01/22 07:54 Dose: 10 mg Documented By: EZRA Aspirin (Aspirin Enteric Coated 81 Mg Tablet.) 81 mg PO DAILY [facility] Last Admin: 04/01/22 07:53 Dose: 81 mg Documented By: EZRA Atorvastatin Calcium (Atorvastatin Calcium 10 Mg Tablet) 10 mg PO BEDTIME [facility] Last Admin: 03/31/22 20:32 Dose: 10 mg Documented By: TIFFANIE Clonidine HCl (Clonidine Hcl 0.1 Mg Tablet) 0.1 mg PO TID PRN; Protocol PRN Reason: hyperarousal, anxiety, panic Last Admin: 04/01/22 11:37 Dose: 0.1 mg Documented By: EZRA Doxycycline Hyclate (Doxycycline Hyclate 100 Mg Tablet) 100 mg PO Q12H [facility] Last Admin: 04/01/22 05:10 Dose: 100 mg Documented By: TIFFANIE Enoxaparin Sodium (Enoxaparin Sodium 40 Mg/0.4 Ml Syringe) 40 mg SUBCUT Q24H [facility] Last Admin: 04/01/22 09:53 Dose: 40 mg Documented By: EZRA Fluoxetine HCl (Fluoxetine Hcl 20 Mg Capsule) 40 mg PO DAILY [facility] Last Admin: 04/01/22 07:55 Dose: 40 mg Documented By: EZRA Fluticasone Propionate (Fluticasone Propionate 100 Mcg Blst.W.Dev) 2 puff INHALE RBID [facility] Last Admin: 04/01/22 08:58 Dose: 2 puff Documented By: DANIELA Furosemide (Furosemide 20 Mg Tablet) 20 mg PO DAILY [facility]; Protocol Last Admin: 04/01/22 07:55 Dose: 20 mg Documented By: EZRA Gabapentin (Gabapentin 400 Mg Capsule) 800 mg PO BEDTIME [facility] Last Admin: 03/31/22 20:32 Dose: 800 mg Documented By: TIFFANIE Gabapentin (Gabapentin 400 Mg Capsule) 400 mg PO BID@0900,1200 [facility] Last Admin: 04/01/22 11:35 Dose: 400 mg Documented By: EZRA Insulin Glargine (Insulin Glargine,Hum.Rec.Anlog 100 Unit/Ml 10 Ml Vial) 50 unit SUBCUT BEDTIME [facility] Last Admin: 03/31/22 20:33 Dose: 50 unit Documented By: TIFFANIE Insulin Human Lispro (Insulin Lispro 100 Unit/Ml 3 Ml Vial) 0 unit SUBCUT QIDACHS [facility]; Protocol Last Admin: 04/01/22 12:06 Dose: Not Given Documented By: EZRA Non-Admin Reason: No Insulin Coverage Isosorbide Mononitrate (Isosorbide Mononitrate 30 Mg Tab.Er.24h) 30 mg PO DAILY [facility]; Protocol Last Admin: 04/01/22 07:54 Dose: 30 mg Documented By: EZRA Meclizine HCl (Meclizine Hcl 25 Mg Tablet) 25 mg PO TID PRN PRN Reason: Dizziness Metoprolol Succinate (Metoprolol Succinate Er 50 Mg Tab.Er.24h) 50 mg PO DAILY [facility]; Protocol Last Admin: 04/01/22 07:54 Dose: 50 mg Documented By: EZRA Nystatin (Nystatin Powder 15 Gm Bottle) 1 appl TOPICAL BID [facility]; Protocol Last Admin: 04/01/22 07:53 Dose: 1 appl Documented By: EZRA Omeprazole (Omeprazole 20 Mg Capsule.Dr) 20 mg PO BEDTIME [facility] Last Admin: 03/31/22 20:32 Dose: 20 mg Documented By: TIFFANIE Pharmacy Consult (Consult Rx Perform Med Rec) 1 each MISCELLANE ONCE PRN PRN Reason: Consult order Pharmacy Consult (Consult Rx Vancomycin Dosing) 1 each MISCELLANE DAILY PRN PRN Reason: Consult order Polyethylene Glycol (Polyethylene Glycol 3350 17 Gm Powd.Pack) 17 gm PO DAILY PRN PRN Reason: constipation Pregabalin (Pregabalin 100 Mg Capsule) 100 mg PO BID [facility] Last Admin: 04/01/22 07:54 Dose: 100 mg Documented By: EZRA Risperidone (Risperidone 0.5 Mg Tablet) 0.5 mg PO BID [facility] Last Admin: 04/01/22 07:54 Dose: 0.5 mg Documented By: EZRA Sodium Chloride (0.9 % Sodium Chloride Flush 3 Ml Syringe) 3 ml IVFLUSH QSHIFT [facility] Last Admin: 04/01/22 07:53 Dose: 3 ml Documented By: EZRA Tizanidine HCl (Tizanidine Hcl 4 Mg Tablet) 4 mg PO DAILY@1600 [facility] Last Admin: 03/31/22 18:00 Dose: 4 mg Documented By: RAYMUNDO Vitamin D (Cholecalciferol (Vitamin D3) 25 Mcg Tablet) 25 mcg PO DAILY [facility] Last Admin: 04/01/22 07:54 Dose: 25 mcg Documented By: EZRA Labs CBC & Chem 7: 03/28/22 06:11 04/01/22 08:19 Labs: Laboratory Results - last 24 hr 09/12/22 09/12/22 09/13/22 16:45 19:31 07:09 Anion Gap Estim Creat Clear Calc Estimated GFR POC Glucose 154 H 152 H 116 H Random Glucose Calcium 04/01/22 04/01/22 08:19 12:02 Anion Gap 12 Estim Creat Clear Calc 53.0 Estimated GFR 35 POC Glucose 98 Random Glucose 124 H Calcium 7.9 L Assessment and Plan (1) Panic disorder: Status: Acute (2) Cellulitis of right lower extremity: Status: Acute (3) Stasis dermatitis of both legs: Status: Acute (4) DANIEL (obstructive sleep apnea): Status: Acute (5) Morbid obesity: Status: Acute Plan 61 year old female with history of 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 Acute recurrent RLE cellulitis- intermittent recurrence ongoing since 2019. Treated at [facility] with IV unasyn recently H/o chronic venous stasis dermatitis Venous deplex negative for DVT. Xray R ankle neg for osseous abnormality including osteomyelitis initially treated with vanco, will transition to doxycycline seen by ID- may be more venous stasis she then cellulitis, recommend transition to p.o. doxycycline on discharge for 14 days and then PCN prophylaxis - outpatient follow up with ID keep leg elevated, use diallo wrap repeat DVT study negative for DVT Depression/anxiety with agitation Patient with episodes of what she describes as severe anxiety/panic. seen by psych, meds adjusted still having shouting/anxiety episodes yesterday, does not appear to have hallucinations today. does not meet criteria for IP psych at this time Plan for capacity meeting with the psychiatric team, patient absolutely refusing to go to rehab and daughter stating that patient is likely unsafe at home Physical therapy recommending short-term rehab Hyperklemia. Resolved lokelma CKD 3 Baseline Recently admitted to [facility] for temporary dialysis, since discontinued being discharged from [facility] Acute on chronic normocytic anemia iron studies,b12, folate ok CBC stable Insulin dependent Type 2 diabetes Sliding scale, ADA diet, continue Lantus HTN- Continue amlodipine, isosorbide HLD Continue statin HFrEF Stable with no exacerbation Recent admission to [facility]. Echo on 03/10 with grade 2 diastolic dysfunction with EF 25-35%. CXR with some vascular congestion. Pt denies sob resume Lasix, discontinue Bumex as per d/c note from [facility] Asthma/COPD with chronic respiratory failure on prn home O2 resume nocturnal cpap - not compliant here or at home - 2L NC at night Duonebs prn Diabetic neuropathy Continue home medication Morbid obesity BMI 55.8 Discussed importance of weight management as this may be contributing to worsening of other comorbidities DVT prophylaxis- lovenox Attending Dr. Sharma Full code patient requires ongoing inpatient hospitalization due to treatment of right lower extremity cellulitis, eval for anxiety, new evaluation for capacity Quality Stroke Does the patient have a stroke diagnosis?: No VTE Prior VTE?: No VTE Risk Level:: Medical - moderate - high VTE Device Contraindication: Treatment Not Indicated VTE Drug Contraindication: N/A - Med Ordered
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
[2022-04-01] MEDS: TiZANidine HCL 4 MG TABLET PO (16:08)
[2022-04-01] MEDS: Meclizine HCl 25 MG TABLET PO (16:09)
[2022-04-01 16:29] LABS: Glucose, Whole Blood 115 mg/dL (60-115)
--- NOTE | 2022-04-01 17:01 | HO.PSYCHPN ---
Subjective Subjective Date of Service: 04/01/22 Reason For Visit: RLE pain Interim History: See psych consult note for history. Psych consult placed for capacity. I spoke with pt's team and pt is refusing treatment recommendation for discharge to short term rehab. She has limited services at home, only has 19 hours a week approved for nursing care and there is a concern she will not be able to care for herself. [place] and her daughter is the only family nearby, however she works. Per staffing manager, pt has been screaming out, panicked, and asking to talk with family members, i.e. her sister, who is not nearby. I spoke with the pt this evening. She has slurred speech (missing teeth), lethargic. She says I dont want to go to rehab because the places I've been to, I've been cheated out of medicine for pain. She is unable to name her medical condition as cellulitis and says she is in the hospital because I tripped and hurt my leg, unable to tell me the treatment she received, they gave me a pill. When asked if she has had hallucinations off haldol, she says she seeing an , he had a whole bunch of adderall, he was shooting, but denies having hallucinations since Thursday. When asked why she is screaming out, pt says because the nurses cant hear me, unable to say why she is screaming out to certain people, cannot seem to help it. Says she has persistent anxiety but is unable to identify what she is anxious about and says she is willing to take anything that calms me down. She denies overusing her meds at home because if I overuse them, i'll be short. Upon quick mental status assessment, pt is able to say it is year 2021, thinks the month is April, does not know the day, says the season is cold, knows the president is Bogdan Salazar. She is able to recall three words when asked to repeat them later in the interview. I spoke with pt's daughter, she reports pt has not been at baseline cognitively. For instance, I last saw the pt on Thursday and initiated med change of switching haldol to risperdal, starting clonidine PRN. However, per daughter, she didnt remember meeting me or starting pain meds, daughter had to remind her to ask for her PRNs. Daughter denies that pt overuses her medications at home, as she has a locked box and her daughter or a VNA administers them. Her daughter says her mom may be more lethargic in the day because she is not sleeping at night, however pt refuses to wear CPAP in either hospital or home setting. Her daughter is unsure why pt has been lethargic and screaming out but denies that this is her baseline, says usually she is more alert, she is spicy, she's awake. Per daughter, pt has been calling her screaming, upset, scared at 2-3am and tells her she wants to go home. However, she does not remember doing this. Mental Status Exam Mental Status Exam Narrative: A&O. Morbidly obese, in hospital attire, appears lethargic. Poor eye contact, inattentive. No Tics or Tremors. No abnormal involuntary movements. Calm, currently in behavioral control. Non-pressured speech, spontaneous with regular rate and rhythm, slurred speech, whispering. No prolonged speech latency or dysarthria. Mood is ?anxious. No lability. Denies SI/SIB/HI upon inquiry. Currently denies A/VH or delusional thought content. Thoughts are distracted, derailed. No known cognitive or memory impairment. Insight/ Judgment limited. Diagnostics Vital Signs (24Hr): Vital Signs - 24 hr 03/31/22 19:25 03/31/22 23:11 03/31/22 23:40 Temperature 98.1 F 98.0 F Pulse Rate 84 93 88 Respiratory Rate 18 20 20 Blood Pressure 122/47 L 132/61 Pulse Oximetry 95 Oxygen Delivery Method Nasal Cannula Nasal Cannula Oxygen Flow Rate 2 03/31/22 23:48 04/01/22 04:04 04/01/22 06:00 Temperature 98.4 F Pulse Rate 89 Respiratory Rate 18 18 Blood Pressure 114/80 Pulse Oximetry 93 93 Oxygen Delivery Method Nasal Cannula Nasal Cannula Oxygen Flow Rate 3.5 4 04/01/22 06:07 04/01/22 07:03 04/01/22 08:58 Temperature 97.3 F Pulse Rate 85 74 Respiratory Rate 18 20 16 Blood Pressure 108/77 Pulse Oximetry 94 Oxygen Delivery Method Nasal Cannula Oxygen Flow Rate 4 04/01/22 12:33 04/01/22 15:20 Temperature 97.5 F 97.9 F Pulse Rate 90 79 Respiratory Rate 18 20 Blood Pressure 92/51 L 106/50 L Pulse Oximetry 91 L 89 L Oxygen Delivery Method Nasal Cannula Nasal Cannula Oxygen Flow Rate 4 4 BMI result Body Mass Index 55.8 Labs Results: 03/28/22 06:11 04/01/22 08:19 Labs: Laboratory Results - last 48 hr 03/30/22 03/30/22 03/31/22 17:58 19:21 05:12 Sodium 142 Potassium 5.3 H Chloride 109 H Carbon Dioxide 25 Anion Gap 13 BUN 63 H Creatinine 1.44 H Estim Creat Clear Calc 56.0 Estimated GFR 37 POC Glucose 171 H 194 H Random Glucose 199 H Calcium 7.8 L 03/31/22 03/31/22 03/31/22 06:52 11:23 16:45 Sodium Potassium Chloride Carbon Dioxide Anion Gap BUN Creatinine Estim Creat Clear Calc Estimated GFR POC Glucose 161 H 217 H 154 H Random Glucose Calcium 03/31/22 04/01/22 04/01/22 19:31 07:09 08:19 Sodium 143 Potassium 5.0 Chloride 110 H Carbon Dioxide 26 Anion Gap 12 BUN 69 H Creatinine 1.52 H Estim Creat Clear Calc 53.0 Estimated GFR 35 POC Glucose 152 H 116 H Random Glucose 124 H Calcium 7.9 L 04/01/22 04/01/22 12:02 15:30 Sodium Potassium Chloride Carbon Dioxide Anion Gap BUN Creatinine Estim Creat Clear Calc Estimated GFR POC Glucose 98 115 Random Glucose Calcium Imaging Radiology Impressions: ITS Impressions Chest X-Ray 03/26/22 04:50 IMPRESSION: Prominent central vasculature suggesting a degree of congestion. Enlarged cardiac silhouette. Venous Duplex 03/26/22 09:50 IMPRESSION: No deep vein thrombosis in the visualized veins of the right lower extremity. The peroneal and posterior tibial veins in the calf were not visualized. Ankle X-Ray 03/26/22 10:00 IMPRESSION: * No acute osseous injury at the right ankle. * There are no radiographic findings to suggest presence of septic arthritis or osteomyelitis. * Nonspecific diffuse soft tissue swelling of the examined lower extremity, ankle and foot. Chest X-Ray 03/27/22 16:33 IMPRESSION: Mild prominence of the pulmonary vasculature and cardiac silhouette may be baseline for the patient, but mild congestion cannot be excluded. Venous Duplex 03/29/22 15:03 IMPRESSION: No DVT demonstrated in the right lower extremity. Soft tissue abnormality consistent with edema Medications Medications Current Medications Acetaminophen (Acetaminophen 325 Mg Tablet) 650 mg PO Q6H PRN PRN Reason: Pain, Mild (Pain Scale 1-3) Last Admin: 03/30/22 07:32 Dose: 650 mg Albuterol/Ipratropium (Albuterol/Iprat 2.5/0.5mg 3 Ml Ampul.Neb) 3 ml INHALE RQ6H PRN PRN Reason: Shortness of Breath/Wheezing Last Admin: 03/31/22 23:38 Dose: 3 ml Amlodipine Besylate (Amlodipine Besylate 10 Mg Tablet) 10 mg PO DAILY [facility]; Protocol Last Admin: 04/01/22 07:54 Dose: 10 mg Aspirin (Aspirin Enteric Coated 81 Mg Tablet.) 81 mg PO DAILY [facility] Last Admin: 04/01/22 07:53 Dose: 81 mg Atorvastatin Calcium (Atorvastatin Calcium 10 Mg Tablet) 10 mg PO BEDTIME [facility] Last Admin: 03/31/22 20:32 Dose: 10 mg Clonidine HCl (Clonidine Hcl 0.1 Mg Tablet) 0.1 mg PO TID PRN; Protocol PRN Reason: hyperarousal, anxiety, panic Last Admin: 04/01/22 11:37 Dose: 0.1 mg Doxycycline Hyclate (Doxycycline Hyclate 100 Mg Tablet) 100 mg PO Q12H [facility] Last Admin: 04/01/22 05:10 Dose: 100 mg Enoxaparin Sodium (Enoxaparin Sodium 40 Mg/0.4 Ml Syringe) 40 mg SUBCUT Q24H [facility] Last Admin: 04/01/22 09:53 Dose: 40 mg Fluoxetine HCl (Fluoxetine Hcl 20 Mg Capsule) 40 mg PO DAILY [facility] Last Admin: 04/01/22 07:55 Dose: 40 mg Fluticasone Propionate (Fluticasone Propionate 100 Mcg Blst.W.Dev) 2 puff INHALE RBID [facility] Last Admin: 04/01/22 08:58 Dose: 2 puff Furosemide (Furosemide 20 Mg Tablet) 20 mg PO DAILY [facility]; Protocol Last Admin: 04/01/22 07:55 Dose: 20 mg Gabapentin (Gabapentin 400 Mg Capsule) 800 mg PO BEDTIME [facility] Last Admin: 03/31/22 20:32 Dose: 800 mg Gabapentin (Gabapentin 400 Mg Capsule) 400 mg PO BID@0900,1200 [facility] Last Admin: 04/01/22 11:35 Dose: 400 mg Insulin Glargine (Insulin Glargine,Hum.Rec.Anlog 100 Unit/Ml 10 Ml Vial) 50 unit SUBCUT BEDTIME [facility] Last Admin: 03/31/22 20:33 Dose: 50 unit Insulin Human Lispro (Insulin Lispro 100 Unit/Ml 3 Ml Vial) 0 unit SUBCUT QIDACHS [facility]; Protocol Last Admin: 04/01/22 16:48 Dose: Not Given Isosorbide Mononitrate (Isosorbide Mononitrate 30 Mg Tab.Er.24h) 30 mg PO DAILY [facility]; Protocol Last Admin: 04/01/22 07:54 Dose: 30 mg Meclizine HCl (Meclizine Hcl 25 Mg Tablet) 25 mg PO TID PRN PRN Reason: Dizziness Last Admin: 04/01/22 16:09 Dose: 25 mg Metoprolol Succinate (Metoprolol Succinate Er 50 Mg Tab.Er.24h) 50 mg PO DAILY [facility]; Protocol Last Admin: 04/01/22 07:54 Dose: 50 mg Nystatin (Nystatin Powder 15 Gm Bottle) 1 appl TOPICAL BID [facility]; Protocol Last Admin: 04/01/22 07:53 Dose: 1 appl Omeprazole (Omeprazole 20 Mg Capsule.Dr) 20 mg PO BEDTIME [facility] Last Admin: 03/31/22 20:32 Dose: 20 mg Pharmacy Consult (Consult Rx Perform Med Rec) 1 each MISCELLANE ONCE PRN PRN Reason: Consult order Pharmacy Consult (Consult Rx Vancomycin Dosing) 1 each MISCELLANE DAILY PRN PRN Reason: Consult order Polyethylene Glycol (Polyethylene Glycol 3350 17 Gm Powd.Pack) 17 gm PO DAILY PRN PRN Reason: constipation Pregabalin (Pregabalin 100 Mg Capsule) 100 mg PO BID [facility] Last Admin: 04/01/22 07:54 Dose: 100 mg Risperidone (Risperidone 0.5 Mg Tablet) 0.5 mg PO BID [facility] Last Admin: 04/01/22 07:54 Dose: 0.5 mg Sodium Chloride (0.9 % Sodium Chloride Flush 3 Ml Syringe) 3 ml IVFLUSH QSHIFT [facility] Last Admin: 04/01/22 07:53 Dose: 3 ml Tizanidine HCl (Tizanidine Hcl 4 Mg Tablet) 4 mg PO DAILY@1600 [facility] Last Admin: 04/01/22 16:08 Dose: 4 mg Vitamin D (Cholecalciferol (Vitamin D3) 25 Mcg Tablet) 25 mcg PO DAILY [facility] Last Admin: 04/01/22 07:54 Dose: 25 mcg Allergies Allergies Allergy/AdvReac Type Severity Reaction Status Date / Time acetaminophen [Tylenol] AdvReac Intermediate vommiting, Verified 03/25/22 16:37 itching, hives ibuprofen AdvReac Intermediate vommiting, Verified 03/25/22 16:37 itching morphine AdvReac Intermediate vomiting Verified 03/25/22 16:37 Motrin Allergy Intermediate itching Uncoded 03/25/22 16:37 Assessment & Plan Assessment & Plan (1) Panic disorder: Status: Acute Code(s): F41.0 - Panic disorder [episodic paroxysmal anxiety] (2) Cellulitis of right lower extremity: Status: Acute Code(s): L03.115 - Cellulitis of right lower limb (3) Stasis dermatitis of both legs: Status: Acute Code(s): I87.2 - Venous insufficiency (chronic) (peripheral) (4) DANIEL (obstructive sleep apnea): Status: Acute Code(s): G47.33 - Obstructive sleep apnea (adult) (pediatric) (5) Morbid obesity: Status: Acute Code(s): E66.01 - Morbid (severe) obesity due to excess calories Plan Today I assessed the patient for capacity. Pt is making the medical decision to refuse transfer to short term rehab and requesting to discharge home, however pt will likely not have 24/hr care and she does not appear able to care for herself independently. Per staffing manager, pt has been screaming out, lethargic throughout the day, and demanding PRN medications. Pt difficult to understand, slurring her words, whispering, but continues with persistent anxiety. I would not recommend increasing risperdal or clonidine, as she is not lethargic at baseline. These medications do not appear to be exacerbating her lethargy, as she presented with sedation prior to starting them. Pt is not able to demonstrate an understanding of the consequences that declining short term rehab will have on her health. Therefore, I recommend invoking her daughter as HCP. Pt's daughter is currently working on setting up in home services for her mother and applying for increased VNA hours in order to aid with safe discharge. I have shared this with Johana Francis. Thank you for this consultation. If you have any questions or concerns, please do not hesitate to contact psychiatry service. I spent minutes with the patient and/or on the patient floor today, greater than?50% of which was spent counseling/coordinating care. Patient educated on: medication risk/benefits and therapeutic strategies Reason for contiued inpatient stay Substantial Risk for: inability to function and med/psych decompensation
[2022-04-01 20:05] LABS: Glucose, Whole Blood 162 mg/dL (60-115)
[2022-04-01] MEDS: Insulin Glargine,Hum.rec.anlog 100 UNIT/ML 10 ML VIAL 50 UNIT SUBCUT (20:35)
[2022-04-01] MEDS: Omeprazole 20 MG CAPSULE.DR PO (20:35)
[2022-04-01] MEDS: Gabapentin 400 MG CAPSULE 800 MG PO (20:35)
[2022-04-01] MEDS: Atorvastatin Calcium 10 MG TABLET PO (20:35)
[2022-04-01] MEDS: Insulin Lispro 100 UNIT/ML 3 ML VIAL SUBCUT (20:36)
[2022-04-02] MEDS: cloNIDine HCL 0.1 MG TABLET PO ×2 (02:53→20:25)
[2022-04-02 07:18] VITALS: BP 128/60; PULSE 78; RESP 14; TEMP 36.2; O2SAT 95
[2022-04-02 07:21] LABS: Glucose, Whole Blood 151 mg/dL (60-115)
[2022-04-02] MEDS: FLUoxetine HCl 20 MG CAPSULE 40 MG PO (07:35)
[2022-04-02] MEDS: risperiDONE 0.5 MG TABLET PO ×2 (07:36→20:25)
[2022-04-02] MEDS: Furosemide 20 MG TABLET PO (07:36)
[2022-04-02] MEDS: Cholecalciferol (Vitamin D3) 25 MCG TABLET PO (07:36)
[2022-04-02] MEDS: Gabapentin 400 MG CAPSULE PO ×2 (07:36→11:55)
[2022-04-02] MEDS: Aspirin Enteric Coated 81 MG TABLET.DR PO (07:36)
[2022-04-02] MEDS: Insulin Lispro 100 UNIT/ML 3 ML VIAL SUBCUT ×4 (07:37→20:24)
[2022-04-02] MEDS: Pregabalin 100 MG CAPSULE PO ×2 (07:37→20:24)
[2022-04-02] MEDS: 0.9 % Sodium Chloride Flush 3 ML SYRINGE IVFLUSH ×3 (07:42→23:33)
[2022-04-02] MEDS: Fluticasone Propionate 100 MCG BLST.W.DEV 2 PUFF INHALE ×2 (08:37→20:00)
[2022-04-02 08:41] VITALS: PULSE 102; RESP 18; O2SAT 95
[2022-04-02 09:22] LABS: Anion Gap 13 (12-20); Blood Urea Nitrogen 79 mg/dL (9-16); Calcium 8.4 mg/dL (8.4-10.2); Carbon Dioxide 26 mmol/L (22-29); Chloride 107 mmol/L (96-108); Creatinine Clr Calc Pharmacy 41.1; Estimated Glomerular Filt Rate 26; Glucose Random 177 mg/dL (60-115); Potassium 5.2 mmol/L (3.3-5.1); Sodium 141 mmol/L (135-145)
--- NOTE | 2022-04-02 09:43 | MHC.CM.PN ---
Obtained HCP from [facility], uploaded to [facility]. Updated [facility] that pt is ready for d/c, potentially acceptance pending bed availability.
[2022-04-02] MEDS: Isosorbide Mononitrate 30 MG TAB.ER.24H PO (10:34)
[2022-04-02] MEDS: amLODIPine Besylate 10 MG TABLET PO (10:34)
[2022-04-02] MEDS: Enoxaparin Sodium 40 MG/0.4 ML SYRINGE SUBCUT (10:34)
[2022-04-02] MEDS: Metoprolol Succinate ER 50 MG TAB.ER.24H PO (10:34)
[2022-04-02] MEDS: Nystatin Powder 15 GM BOTTLE 1 APPL TOPICAL ×2 (10:35→20:34)
[2022-04-02 11:15] LABS: Glucose, Whole Blood 155 mg/dL (60-115)
--- NOTE | 2022-04-02 11:47 | P.PNIM_ITS ---
Subjective Subjective Date of Service: 04/02/22 Interval History: follow up for right leg cellulitis low o2 overnight, chronic has not been using CPAP due to anxiety/inability to tolerate - also states that she does not use at home although she does have machine Confused at times Review of Systems Review of Systems: Yes all other systems are reviewed and are negative Constitutional Constitutional: Denies chills and Denies fever(s) ENT Ears, Nose, Mouth, and Throat: Denies dizziness Cardiovascular Cardiovascular: Denies chest pain and Denies dyspnea Respiratory Respiratory: Denies dyspnea Gastrointestinal Gastrointestinal: Denies abdominal pain, Denies nausea and Denies vomiting Neurologic Neurologic: Denies dizziness Physical Exam Vital Signs: Vital Signs: Last Vital Signs Temp 97.1 F 04/02/22 07:18 Pulse 102 H 04/02/22 08:41 Resp 18 04/02/22 08:41 BP 128/60 04/02/22 07:18 Pulse Ox 95 04/02/22 07:18 O2 Del Method 04/02/22 07:18 O2 Flow Rate 4.0 04/02/22 07:18 BMI result Body Mass Index 55.8 Appearing in no acute distress lung sounds are clear to auscultation heart regular rate rhythm, clear S1, S2 positive bowel sounds, abdomen is soft, nontender, obese neuro patient is alert x3, no focal deficits Chronic venous stasis skin changes to lower extremities with Tanmay wraps Objective Data Active Medications Acetaminophen (Acetaminophen 325 Mg Tablet) 650 mg PO Q6H PRN PRN Reason: Pain, Mild (Pain Scale 1-3) Last Admin: 03/30/22 07:32 Dose: 650 mg Documented By: SURAJ Albuterol/Ipratropium (Albuterol/Iprat 2.5/0.5mg 3 Ml Ampul.Neb) 3 ml INHALE RQ6H PRN PRN Reason: Shortness of Breath/Wheezing Last Admin: 03/31/22 23:38 Dose: 3 ml Documented By: STEWART Amlodipine Besylate (Amlodipine Besylate 10 Mg Tablet) 10 mg PO DAILY [facility]; Protocol Last Admin: 04/02/22 10:34 Dose: 10 mg Documented By: EZRA Aspirin (Aspirin Enteric Coated 81 Mg Tablet.) 81 mg PO DAILY [facility] Last Admin: 04/02/22 07:36 Dose: 81 mg Documented By: EZRA Atorvastatin Calcium (Atorvastatin Calcium 10 Mg Tablet) 10 mg PO BEDTIME [facility] Last Admin: 04/01/22 20:35 Dose: 10 mg Documented By: KWASI Clonidine HCl (Clonidine Hcl 0.1 Mg Tablet) 0.1 mg PO TID PRN; Protocol PRN Reason: hyperarousal, anxiety, panic Last Admin: 04/02/22 02:53 Dose: 0.1 mg Documented By: KWASI Doxycycline Hyclate (Doxycycline Hyclate 100 Mg Tablet) 100 mg PO Q12H [facility] Last Admin: 04/02/22 05:05 Dose: 100 mg Documented By: KWASI Enoxaparin Sodium (Enoxaparin Sodium 40 Mg/0.4 Ml Syringe) 40 mg SUBCUT Q24H [facility] Last Admin: 04/02/22 10:34 Dose: 40 mg Documented By: EZRA Fluoxetine HCl (Fluoxetine Hcl 20 Mg Capsule) 40 mg PO DAILY [facility] Last Admin: 04/02/22 07:35 Dose: 40 mg Documented By: EZRA Fluticasone Propionate (Fluticasone Propionate 100 Mcg Blst.W.Dev) 2 puff INHALE RBID [facility] Last Admin: 04/02/22 08:37 Dose: 2 puff Furosemide (Furosemide 20 Mg Tablet) 20 mg PO DAILY [facility]; Protocol Last Admin: 04/02/22 07:36 Dose: 20 mg Documented By: EZRA Gabapentin (Gabapentin 400 Mg Capsule) 800 mg PO BEDTIME [facility] Last Admin: 04/01/22 20:35 Dose: 800 mg Documented By: KWASI Gabapentin (Gabapentin 400 Mg Capsule) 400 mg PO BID@0900,1200 [facility] Last Admin: 04/02/22 07:36 Dose: 400 mg Documented By: EZRA Insulin Glargine (Insulin Glargine,Hum.Rec.Anlog 100 Unit/Ml 10 Ml Vial) 50 unit SUBCUT BEDTIME [facility] Last Admin: 04/01/22 20:35 Dose: 50 unit Documented By: KWASI Insulin Human Lispro (Insulin Lispro 100 Unit/Ml 3 Ml Vial) 0 unit SUBCUT QIDACHS [facility]; Protocol Last Admin: 04/02/22 07:37 Dose: 2 unit Documented By: EZRA Isosorbide Mononitrate (Isosorbide Mononitrate 30 Mg Tab.Er.24h) 30 mg PO DAILY [facility]; Protocol Last Admin: 04/02/22 10:34 Dose: 30 mg Documented By: EZRA Meclizine HCl (Meclizine Hcl 25 Mg Tablet) 25 mg PO TID PRN PRN Reason: Dizziness Last Admin: 04/01/22 16:09 Dose: 25 mg Documented By: EZRA Metoprolol Succinate (Metoprolol Succinate Er 50 Mg Tab.Er.24h) 50 mg PO DAILY [facility]; Protocol Last Admin: 04/02/22 10:34 Dose: 50 mg Documented By: EZRA Nystatin (Nystatin Powder 15 Gm Bottle) 1 appl TOPICAL BID [facility]; Protocol Last Admin: 04/02/22 10:35 Dose: 1 appl Documented By: EZRA Omeprazole (Omeprazole 20 Mg Capsule.Dr) 20 mg PO BEDTIME [facility] Last Admin: 04/01/22 20:35 Dose: 20 mg Documented By: KWASI Pharmacy Consult (Consult Rx Perform Med Rec) 1 each MISCELLANE ONCE PRN PRN Reason: Consult order Pharmacy Consult (Consult Rx Vancomycin Dosing) 1 each MISCELLANE DAILY PRN PRN Reason: Consult order Polyethylene Glycol (Polyethylene Glycol 3350 17 Gm Powd.Pack) 17 gm PO DAILY PRN PRN Reason: constipation Pregabalin (Pregabalin 100 Mg Capsule) 100 mg PO BID [facility] Last Admin: 04/02/22 07:37 Dose: 100 mg Documented By: EZRA Risperidone (Risperidone 0.5 Mg Tablet) 0.5 mg PO BID [facility] Last Admin: 04/02/22 07:36 Dose: 0.5 mg Documented By: EZRA Sodium Chloride (0.9 % Sodium Chloride Flush 3 Ml Syringe) 3 ml IVFLUSH QSHIFT [facility] Last Admin: 04/02/22 07:42 Dose: 3 ml Documented By: EZRA Tizanidine HCl (Tizanidine Hcl 4 Mg Tablet) 4 mg PO DAILY@1600 [facility] Last Admin: 04/01/22 16:08 Dose: 4 mg Documented By: EZRA Vitamin D (Cholecalciferol (Vitamin D3) 25 Mcg Tablet) 25 mcg PO DAILY [facility] Last Admin: 04/02/22 07:36 Dose: 25 mcg Documented By: EZRA Labs CBC & Chem 7: 03/28/22 06:11 04/02/22 08:20 Labs: Laboratory Results - last 24 hr 04/01/22 04/01/22 04/01/22 12:02 15:30 19:39 Anion Gap Estim Creat Clear Calc Estimated GFR POC Glucose 98 115 162 H Random Glucose Calcium 04/02/22 04/02/22 04/02/22 07:15 08:20 11:12 Anion Gap 13 Estim Creat Clear Calc 41.1 Estimated GFR 26 POC Glucose 151 H 155 H Random Glucose 177 H Calcium 8.4 D Assessment and Plan (1) Panic disorder: Status: Acute (2) Cellulitis of right lower extremity: Status: Acute (3) Stasis dermatitis of both legs: Status: Acute (4) DANIEL (obstructive sleep apnea): Status: Acute (5) Morbid obesity: Status: Acute Plan 61 year old female with history of 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 Depression/anxiety with agitation Patient with episodes of what she describes as severe anxiety/panic. still having shouting/anxiety episodes yesterday does not meet criteria for IP psych at this time however was deemed not competent to make her own decisions and healthcare proxy will be invoked which is her daughter Plan for transfer to short-term rehab when available Acute recurrent RLE cellulitis- intermittent recurrence ongoing since 2019. Treated at [facility] with IV unasyn recently H/o chronic venous stasis dermatitis Venous deplex negative for DVT. Xray R ankle neg for osseous abnormality including osteomyelitis initially treated with vanco, will transition to doxycycline seen by ID- may be more venous stasis she then cellulitis, recommend transition to p.o. doxycycline on discharge for 14 days and then PCN prophylaxis - outpatient follow up with ID keep leg elevated, use tanmay wrap Hyperklemia. Resolved lokelma CKD 3 Baseline Recently admitted to [facility] for temporary dialysis, since discontinued being discharged from [facility] Acute on chronic normocytic anemia iron studies,b12, folate ok CBC stable Insulin dependent Type 2 diabetes Sliding scale, ADA diet, continue Lantus HTN- Continue amlodipine, isosorbide HLD Continue statin HFrEF Stable with no exacerbation Recent admission to [facility]. Echo on 03/10 with grade 2 diastolic dysfunction with EF 25-35%. CXR with some vascular congestion. Pt denies sob resume Lasix, discontinue Bumex as per d/c note from [facility] Asthma/COPD with chronic respiratory failure on prn home O2 resume nocturnal cpap - not compliant here or at home - 2L NC at night Duonebs prn Diabetic neuropathy Continue home medication Morbid obesity BMI 55.8 Discussed importance of weight management as this may be contributing to worsening of other comorbidities DVT prophylaxis- lovenox Attending Dr. Sharma Full code patient requires ongoing inpatient hospitalization due to treatment of right lower extremity cellulitis, eval for anxiety, seen and evaluated by psychiatric team deemed to not have capacity to make her own decisions, healthcare proxy invoked. Pending safe discharge to short-term rehab Quality Stroke Does the patient have a stroke diagnosis?: No VTE Prior VTE?: No VTE Risk Level:: Medical - moderate - high VTE Device Contraindication: Treatment Not Indicated VTE Drug Contraindication: N/A - Med Ordered
--- NOTE | 2022-04-02 12:04 | MHC.CLN ---
NUTRITION CONSULT FOR PRESSURE INJURY TO COCCYX. PATIENT WITH STAGE I TO MEDIAL COCCYX. DIET=DIABETIC 1800 KCALS, 2 GRAM SODIUM. INTAKE VARIABLE, 0-100%. WITH AVERAGE INATKE GREATER THAN 50%. NO NEW NUTRITION INTERVENTIONS AT THIS TIME.
[2022-04-02 15:17] VITALS: BP 114/64; PULSE 80; RESP 16; TEMP 36.1; O2SAT 96
[2022-04-02 15:43] LABS: Glucose, Whole Blood 164 mg/dL (60-115)
[2022-04-02] MEDS: TiZANidine HCL 4 MG TABLET PO (17:37)
[2022-04-02 20:00] VITALS: PULSE 73; RESP 20; O2SAT 94
[2022-04-02 20:10] LABS: Glucose, Whole Blood 164 mg/dL (60-115)
[2022-04-02] MEDS: Atorvastatin Calcium 10 MG TABLET PO (20:24)
[2022-04-02] MEDS: Insulin Glargine,Hum.rec.anlog 100 UNIT/ML 10 ML VIAL 50 UNIT SUBCUT (20:24)
[2022-04-02] MEDS: Omeprazole 20 MG CAPSULE.DR PO (20:24)
[2022-04-02] MEDS: Gabapentin 400 MG CAPSULE 800 MG PO (20:25)
[2022-04-02 23:31] VITALS: BP 132/63; PULSE 74; RESP 18; TEMP 36.6; O2SAT 94
[2022-04-03] VITALS (13 sets, daily range): BP systolic 98–129; BP diastolic 51–77; PULSE 73–94; RESP 14–20; TEMP 35.8–36.8; O2SAT 66–98
[2022-04-03 07:20] LABS: Glucose, Whole Blood 131 mg/dL (60-115)
[2022-04-03] MEDS: Aspirin Enteric Coated 81 MG TABLET.DR PO (09:26)
[2022-04-03] MEDS: Gabapentin 400 MG CAPSULE PO (09:26)
[2022-04-03] MEDS: Cholecalciferol (Vitamin D3) 25 MCG TABLET PO (09:26)
[2022-04-03] MEDS: Enoxaparin Sodium 40 MG/0.4 ML SYRINGE SUBCUT (09:26)
[2022-04-03] MEDS: FLUoxetine HCl 20 MG CAPSULE 40 MG PO (09:26)
[2022-04-03] MEDS: Pregabalin 100 MG CAPSULE PO (09:26)
[2022-04-03] MEDS: risperiDONE 0.5 MG TABLET PO ×2 (09:26→20:23)
[2022-04-03] MEDS: Metoprolol Succinate ER 50 MG TAB.ER.24H PO (09:26)
[2022-04-03] MEDS: Albuterol/Iprat 2.5/0.5MG 3 ML AMPUL.NEB INHALE ×3 (10:47→22:38)
[2022-04-03] MEDS: Nystatin Powder 15 GM BOTTLE 1 APPL TOPICAL ×2 (10:49→20:29)
[2022-04-03] MEDS: 0.9 % Sodium Chloride Flush 3 ML SYRINGE IVFLUSH ×2 (10:49→14:20)
[2022-04-03] MEDS: Furosemide 40 MG/4 ML VIAL IVPUSH (10:53)
--- NOTE | 2022-04-03 11:13 | HO.PM.IMPN ---
Subjective Subjective Date of Service: 04/03/22 Interval History: seen and examined this morning follow up for RLE cellulitis difficult to wake up, but eventually awake and alert a short time later nurse reported low o2 sat. patient denies sob, denies cough Review of Systems Review of Systems: Yes all other systems are reviewed and are negative Constitutional Constitutional: Denies chills and Denies fever(s) ENT Ears, Nose, Mouth, and Throat: Denies dizziness Cardiovascular Cardiovascular: Denies chest pain, Denies palpitations and Denies dyspnea Respiratory Respiratory: Denies cough and Denies dyspnea Gastrointestinal Gastrointestinal: Denies abdominal pain Neurologic Neurologic: Denies dizziness Endocrine Endocrine: Denies palpitations Physical Exam Vital Signs: Vital Signs: Last Vital Signs Temp 96.4 F L 04/03/22 07:07 Pulse 79 04/03/22 11:01 Resp 20 04/03/22 11:06 BP 113/60 04/03/22 09:17 Pulse Ox 95 04/03/22 11:06 O2 Del Method 04/03/22 11:06 O2 Flow Rate 4 04/03/22 10:55 BMI result Body Mass Index 55.8 Const: Other: difficult to arouse, but once awake, alert and talking General: awake Nutritional Appearance: obese Resp: Auscultation: crackles and wheezes Cardio: Rate: regular rate Heart sounds: S1 normal heart sound present and S2 normal heart sound present GI: Inspection: Yes obesity Palpation (GI): Soft to palpation and nontender Extrem: Other: leg swelling improving; b/l hands with edema Objective Data Active Medications Acetaminophen (Acetaminophen 325 Mg Tablet) 650 mg PO Q6H PRN PRN Reason: Pain, Mild (Pain Scale 1-3) Last Admin: 03/30/22 07:32 Dose: 650 mg Documented By: SURAJ Albuterol/Ipratropium (Albuterol/Iprat 2.5/0.5mg 3 Ml Ampul.Neb) 3 ml INHALE RQ6H PRN PRN Reason: Shortness of Breath/Wheezing Last Admin: 04/03/22 10:47 Dose: 3 ml Documented By: CR Amlodipine Besylate (Amlodipine Besylate 10 Mg Tablet) 10 mg PO DAILY HI; Protocol Last Admin: 04/03/22 10:48 Dose: Not Given Documented By: HO.DABA Non-Admin Reason: pt uncooperative Aspirin (Aspirin Enteric Coated 81 Mg Tablet.) 81 mg PO DAILY [facility] Last Admin: 04/03/22 09:26 Dose: 81 mg Documented By: EZRA Atorvastatin Calcium (Atorvastatin Calcium 10 Mg Tablet) 10 mg PO BEDTIME [facility] Last Admin: 04/02/22 20:24 Dose: 10 mg Documented By: KWASI Clonidine HCl (Clonidine Hcl 0.1 Mg Tablet) 0.1 mg PO TID PRN; Protocol PRN Reason: hyperarousal, anxiety, panic Last Admin: 04/02/22 20:25 Dose: 0.1 mg Documented By: KWASI Doxycycline Hyclate (Doxycycline Hyclate 100 Mg Tablet) 100 mg PO Q12H [facility] Last Admin: 04/03/22 05:35 Dose: 100 mg Documented By: KWASI Enoxaparin Sodium (Enoxaparin Sodium 40 Mg/0.4 Ml Syringe) 40 mg SUBCUT Q24H [facility] Last Admin: 04/03/22 09:26 Dose: 40 mg Documented By: EZRA Fluoxetine HCl (Fluoxetine Hcl 20 Mg Capsule) 40 mg PO DAILY [facility] Last Admin: 04/03/22 09:26 Dose: 40 mg Documented By: EZRA Fluticasone Propionate (Fluticasone Propionate 100 Mcg Blst.W.Dev) 2 puff INHALE RBID [facility] Last Admin: 04/03/22 07:49 Dose: Not Given Documented By: ZENA Non-Admin Reason: Patient Refused Furosemide (Furosemide 20 Mg Tablet) 20 mg PO DAILY [facility]; Protocol Last Admin: 04/02/22 07:36 Dose: 20 mg Documented By: EZRA Gabapentin (Gabapentin 400 Mg Capsule) 800 mg PO BEDTIME [facility] Last Admin: 04/02/22 20:25 Dose: 800 mg Documented By: KWASI Gabapentin (Gabapentin 400 Mg Capsule) 400 mg PO BID@0900,1200 [facility] Last Admin: 04/03/22 09:26 Dose: 400 mg Documented By: EZRA Insulin Glargine (Insulin Glargine,Hum.Rec.Anlog 100 Unit/Ml 10 Ml Vial) 50 unit SUBCUT BEDTIME [facility] Last Admin: 04/02/22 20:24 Dose: 50 unit Documented By: KWASI Insulin Human Lispro (Insulin Lispro 100 Unit/Ml 3 Ml Vial) 0 unit SUBCUT QIDACHS [facility]; Protocol Last Admin: 04/03/22 07:58 Dose: Not Given Documented By: EZRA Non-Admin Reason: No Insulin Coverage Isosorbide Mononitrate (Isosorbide Mononitrate 30 Mg Tab.Er.24h) 30 mg PO DAILY [facility]; Protocol Last Admin: 04/03/22 10:48 Dose: Not Given Documented By: CR Non-Admin Reason: pt uncooperative Meclizine HCl (Meclizine Hcl 25 Mg Tablet) 25 mg PO TID PRN PRN Reason: Dizziness Last Admin: 04/01/22 16:09 Dose: 25 mg Documented By: EZRA Metoprolol Succinate (Metoprolol Succinate Er 50 Mg Tab.Er.24h) 50 mg PO DAILY [facility]; Protocol Last Admin: 04/03/22 09:26 Dose: 50 mg Documented By: EZRA Nystatin (Nystatin Powder 15 Gm Bottle) 1 appl TOPICAL BID [facility]; Protocol Last Admin: 04/03/22 10:49 Dose: 1 appl Documented By: CR Omeprazole (Omeprazole 20 Mg Capsule.) 20 mg PO BEDTIME [facility] Last Admin: 04/02/22 20:24 Dose: 20 mg Documented By: KWASI Pharmacy Consult (Consult Rx Perform Med Rec) 1 each MISCELLANE ONCE PRN PRN Reason: Consult order Pharmacy Consult (Consult Rx Vancomycin Dosing) 1 each MISCELLANE DAILY PRN PRN Reason: Consult order Polyethylene Glycol (Polyethylene Glycol 3350 17 Gm Powd.Pack) 17 gm PO DAILY PRN PRN Reason: constipation Pregabalin (Pregabalin 100 Mg Capsule) 100 mg PO BID [facility] Last Admin: 04/03/22 09:26 Dose: 100 mg Documented By: EZRA Risperidone (Risperidone 0.5 Mg Tablet) 0.5 mg PO BID [facility] Last Admin: 04/03/22 09:26 Dose: 0.5 mg Documented By: EZRA Sodium Chloride (0.9 % Sodium Chloride Flush 3 Ml Syringe) 3 ml IVFLUSH QSHIFT [facility] Last Admin: 04/03/22 10:49 Dose: 3 ml Documented By: CR Tizanidine HCl (Tizanidine Hcl 4 Mg Tablet) 4 mg PO DAILY@1600 [facility] Last Admin: 04/02/22 17:37 Dose: 4 mg Documented By: EZRA Vitamin D (Cholecalciferol (Vitamin D3) 25 Mcg Tablet) 25 mcg PO DAILY [facility] Last Admin: 04/03/22 09:26 Dose: 25 mcg Documented By: EZRA Labs CBC & Chem 7: 03/28/22 06:11 04/02/22 08:20 Labs: Laboratory Results - last 24 hr 04/02/22 04/02/22 04/02/22 11:12 15:24 19:44 POC Glucose 155 H 164 H 164 H 04/03/22 07:11 POC Glucose 131 H Assessment and Plan (1) Cellulitis of right lower extremity: Status: Acute (2) Panic disorder: Status: Acute (3) DANIEL (obstructive sleep apnea): Status: Acute Plan 61 year old female with history of 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 Acute on chronic respiratory failure with hypoxia seems like r/t CHF, will give dose of lasix check BNP check CXR Acute on chronic HFrEF Recent admission to [facility]. Echo on 03/10 with grade 2 diastolic dysfunction with EF 25-35%. repeat CXR pending will change to IV lasix BNP pending as above Cardiology consult pending Asthma/COPD with chronic respiratory failure on prn home O2 resume nocturnal cpap - not compliant here or at home - 2L NC at night Change to scheduled Duonebs Depression/anxiety with agitation Patient with episodes of what she describes as severe anxiety/panic. still having shouting/anxiety episodes yesterday does not meet criteria for IP psych at this time however was deemed not competent to make her own decisions and healthcare proxy will be invoked which is her daughter Plan for transfer to short-term rehab when available Acute recurrent RLE cellulitis- intermittent recurrence ongoing since 2019. Treated at [facility] with IV unasyn recently H/o chronic venous stasis dermatitis Venous deplex negative for DVT. Xray R ankle neg for osseous abnormality including osteomyelitis initially treated with vanco, will transition to doxycycline seen by ID- may be more venous stasis she then cellulitis, recommend transition to p.o. doxycycline on discharge for 14 days and then PCN prophylaxis - outpatient follow up with ID keep leg elevated, use diallo wrap Hyperklemia. Resolved lokelma CKD 3 Baseline Recently admitted to [facility] for temporary dialysis, since discontinued being discharged from [facility] Acute on chronic normocytic anemia iron studies,b12, folate ok CBC stable Insulin dependent Type 2 diabetes Sliding scale, ADA diet, continue Lantus HTN- Continue amlodipine, isosorbide HLD Continue statin Diabetic neuropathy Continue home medication Morbid obesity BMI 55.8 Discussed importance of weight management as this may be contributing to worsening of other comorbidities DVT prophylaxis- lovenox Attending Dr. Sharma Full code patient requires ongoing inpatient hospitalization due to treatment of right lower extremity cellulitis, eval for anxiety, seen and evaluated by psychiatric team deemed to not have capacity to make her own decisions, healthcare proxy invoked. Pending safe discharge to short-term rehab. now requiring management of respiratory failure and probable chf Quality Stroke Does the patient have a stroke diagnosis?: No VTE Prior VTE?: No VTE Risk Level:: Medical - moderate - high VTE Device Contraindication: Treatment Not Indicated VTE Drug Contraindication: N/A - Med Ordered
[2022-04-03 11:14] LABS: VBG HCO3 27 mmol/L (22-26); VBG pCO2 64 mmHg; VBG pH 7.23 (7.32-7.43); VBG pO2 53 mmHg
[2022-04-03 11:15] LABS: Venous Blood Gas Refer to POC result
[2022-04-03 11:23] LABS: Hematocrit 30.2 % (37.0-47.0); Hemoglobin 8.5 g/dl (12.0-16.0); Mean Corpuscular HGB Conc 28.1 g/dl (31.0-35.0); Mean Corpuscular Hemoglobin 26.7 pg (27.0-33.0); Mean Platelet Volume 9.8 fL (9.4-12.3); NRBC Pct Auto 0.3 /100WBC (0.0-0.2); Platelet Count 126 X10*3/uL (160-400); Red Blood Count 3.18 X10*6/uL (4.20-5.50); Red Cell Distribution Width 17.6 % (11.0-16.0); White Blood Count 6.2 X10*3/uL (4.8-10.8)
[2022-04-03 11:23] LABS: Glucose, Whole Blood 141 mg/dL (60-115)
[2022-04-03 11:29] LABS: Anion Gap 15 (12-20); Blood Urea Nitrogen 86 mg/dL (9-16); Calcium 8.2 mg/dL (8.4-10.2); Carbon Dioxide 25 mmol/L (22-29); Chloride 107 mmol/L (96-108); Estimated Glomerular Filt Rate 28; Glucose Random 149 mg/dL (60-115); Potassium 5.5 mmol/L (3.3-5.1); Sodium 141 mmol/L (135-145)
--- NOTE | 2022-04-03 11:36 | MHC.CM.PN ---
Addendum entered by [place] 04/03/22 14:50: Received return call from patient's daughter. Updated her on plan of care. She is still working on getting increased services for patient in the home. CM will continue to follow. Following facilities were updated, no available bed @ this time. Original Note: LEFT VM FOR DAUGHTER TO UPDATE ON PLAN OF CARE. AWAITING RETURN CALL.
[2022-04-03 11:47] LABS: B Type Natriuretic Peptide 595 pg/mL (<100)
[2022-04-03] MEDS: Sodium Zirconium Cyclosilicate 5 GM POWD.PACK PO (14:20)
[2022-04-03 15:46] LABS: Glucose, Whole Blood 162 mg/dL (60-115)
--- NOTE | 2022-04-03 15:59 | PC.NURSE ---
@ 10:30 Pt was found hypoxic, O2 at 78% on 4L. Pt was drowsy, but arousal to stimulation, but would fall back asleep. Respiratory therapist on floor was notified immediately. Pt was put on a non-rebreather and albuterol nebulizer. O2 returned to 95%. No s&s of difficulty breathing. MD bedside. New order for chest xray, VBG, IV Lasix given. @1500 vital signs stable. Pt still appears drousy, but arousable and able to respond to commands. 500ml yellow urine. noted from purwick
[2022-04-03] MEDS: Furosemide 200 MG in 0.9 % Sodium Chloride 80 ML IVCONT (16:58)
--- NOTE | 2022-04-03 17:35 | PM.PNNEP ---
Subjective Subjective Date of Service: 04/03/22 Interval history: RENAL CONSULT PT seen and full consult dictated Orders placed Case d/w [facility] wilfredo Will follow symone with team Physical Exam Vital Signs: Vital Signs: Last Vital Signs Temp 98.2 F 04/03/22 23:14 Pulse 94 04/03/22 23:14 Resp 20 04/03/22 23:14 BP 129/77 04/03/22 23:14 Pulse Ox 92 04/03/22 23:14 O2 Del Method 04/03/22 23:14 O2 Flow Rate 4 04/03/22 23:14 BMI result Body Mass Index 55.8 Objective Data Labs CBC & Chem 7: 04/03/22 11:01 04/03/22 11:02 Labs: Laboratory Results - last 24 hr 04/03/22 04/03/22 04/03/22 07:11 11:01 11:01 WBC 6.2 RBC 3.18 L Hgb 8.5 L Hct 30.2 L MCV 95.0 MCH 26.7 L MCHC 28.1 L RDW 17.6 H Plt Count 126 L D MPV 9.8 Absolute Nucleated RBC 0.020 H Nucleated RBC % (auto) 0.3 H VBG pH VBG pCO2 VBG pO2 VBG HCO3 VBG O2 Saturation VBG Base Excess Sodium Potassium Chloride Carbon Dioxide Anion Gap BUN Creatinine Estim Creat Clear Calc Estimated GFR POC Glucose 131 H Random Glucose Calcium B-Natriuretic Peptide 595 H 04/03/22 04/03/22 04/03/22 11:02 11:07 11:19 WBC RBC Hgb Hct MCV MCH MCHC RDW Plt Count MPV Absolute Nucleated RBC Nucleated RBC % (auto) VBG pH 7.23 L VBG pCO2 64 VBG pO2 53 VBG HCO3 27 H VBG O2 Saturation 80.0 VBG Base Excess -1.0 Sodium 141 Potassium 5.5 H Chloride 107 Carbon Dioxide 25 Anion Gap 15 BUN 86 H Creatinine 1.83 H Estim Creat Clear Calc 44.0 Estimated GFR 28 POC Glucose 141 H Random Glucose 149 H Calcium 8.2 L B-Natriuretic Peptide 04/03/22 04/03/22 15:14 19:08 WBC RBC Hgb Hct MCV MCH MCHC RDW Plt Count MPV Absolute Nucleated RBC Nucleated RBC % (auto) VBG pH VBG pCO2 VBG pO2 VBG HCO3 VBG O2 Saturation VBG Base Excess Sodium Potassium Chloride Carbon Dioxide Anion Gap BUN Creatinine Estim Creat Clear Calc Estimated GFR POC Glucose 162 H 181 H Random Glucose Calcium B-Natriuretic Peptide Procedures Date of Service Date of Service: 04/03/22 Assessment & Plan Time Spent With Patient Time: Total time spent is greater than 50% in coordination of care (as documented) at patient's floor/unit and/or counseling patient: Progress Note: Quality Stroke Does the patient have a stroke diagnosis?: No
[2022-04-03] MEDS: Insulin Lispro 100 UNIT/ML 3 ML VIAL SUBCUT ×2 (17:37→20:23)
[2022-04-03] MEDS: Fluticasone Propionate 100 MCG BLST.W.DEV 2 PUFF INHALE (19:57)
[2022-04-03 20:01] LABS: Glucose, Whole Blood 181 mg/dL (60-115)
[2022-04-03] MEDS: Insulin Glargine,Hum.rec.anlog 100 UNIT/ML 10 ML VIAL 50 UNIT SUBCUT (20:23)
[2022-04-03] MEDS: Omeprazole 20 MG CAPSULE.DR PO (20:23)
[2022-04-03] MEDS: cloNIDine HCL 0.1 MG TABLET PO (20:23)
[2022-04-03] MEDS: Atorvastatin Calcium 10 MG TABLET PO (20:23)
--- NOTE | 2022-04-03 21:11 | PM.EVENT ---
Event Note Date of Service: 04/03/22 Event Note: Nursing staff contacted this PA regarding patient's incontinence. Has not been able to tolerate purewick. Requesting ghotra catheter be placed for better management of fluids and incontinence.
[2022-04-04] VITALS (11 sets, daily range): BP systolic 112–140; BP diastolic 53–63; PULSE 76–94; RESP 17–24; TEMP 36.1–36.8; O2SAT 90–100
[2022-04-04] MEDS: Sodium Zirconium Cyclosilicate 5 GM POWD.PACK PO (02:33)
[2022-04-04 03:23] LABS: Appearance Urine Clear; Color Urine Yellow; Glucose Urine UA Negative (Negative); Leukocyte Esterase Urine Negative (Negative); Nitrite Urine Negative (Negative); UMIC TRIGGER UA YES; Urine Blood Small (1+) (Negative); Urine Ketones Negative (Negative); Urine Protein Negative (Neg-Trace)
[2022-04-04 03:35] LABS: Bacteria Urine None Seen (None Seen); Squamous Epithelial Cell Urine 0-2 /HPF (0-2); WBC Urine 0-5 /HPF (0-5)
[2022-04-04 03:55] LABS: Creatinine Urine 46.06 mg/dL
[2022-04-04] MEDS: cloNIDine HCL 0.1 MG TABLET PO (04:01)
--- NOTE | 2022-04-04 04:20 | PC.NURSE ---
NEW ORDERS NOTED TO STATUS BOARD BY DR WILCOX, URINE SPECIMEN OBTAINED AND SENT ORDERED, ALSO LOKELMA GIVEN TO PATIENT WHICH SHE DRANK MOST OF BUT STATED WAS TERRIBLE AND WOULD NOT TAKE LAST SIPS DESPITE EXPLANATION. PATIENT AWAKE AND WATCHING TV AND THEN APPROXIMATELY 0300 BECAME LOUD, SWEARING, INSISTING TO STAND AND GET OOB, BECAME UNCOOPERATIVE AND UPSET WHEN TOLD SHE WAS IN THE HOSPITAL. LANGUAGE BECAME INAPPROPRIATE, WAS INSISTING TO STAND, CALL HER FAMILY, AND NOT LISTENING TO SAFETY AND TIME. OFFERED SMALL DRINK PT ON FLUID RESTRICTION, PILLOWS, DIM LIGHTS, BLANKET.......HOWEVER, JUST BECAME INCREASING AGITATED. MEDICATED FEW MINUTES BEFORE DUE TIME AFTER AN HOUR OF RESTLESSNESS AND ANXIETY WITH CLONIDINE PO AT 0405. WILL CONTINUE TO MONITOR BEHAVIOR AND SAFETY. VITALS 98.0-89-20-134/61. OXYGEN AT 4L/M N/C AND SATS 92-93% SITTER AT BEDSIDE FOR COMFORT AND SAFETY.
--- NOTE | 2022-04-04 05:56 | PC.NURSE ---
PATIENT REMAINS AWAKE BUT CALM, TALKING OUT AND MOST SENTENCES NOT IN A SENSE/ORDER, HOWEVER, TOOK HER AM PO ABX, BILAT LOWER LEG RICHY WRAPD C-D-I, [place] EMPTIED FOR 1200ML, LASIX DRIP INFUSING ORDERED.
[2022-04-04 07:28] LABS: Anion Gap 15 (12-20); Blood Urea Nitrogen 87 mg/dL (9-16); Calcium 8.3 mg/dL (8.4-10.2); Carbon Dioxide 26 mmol/L (22-29); Chloride 107 mmol/L (96-108); Creatinine Clr Calc Pharmacy 44.8; Estimated Glomerular Filt Rate 29; Glucose Random 247 mg/dL (60-115); Potassium 5.3 mmol/L (3.3-5.1); Sodium 143 mmol/L (135-145)
[2022-04-04 07:41] LABS: Glucose, Whole Blood 207 mg/dL (60-115)
[2022-04-04 08:15] LABS: ABG Base Excess 3.8 mmol/L; ABG HCO3 31 mmol/L (22-26); ABG pCO2 68 mmHg (32-45); ABG pH 7.27 (7.35-7.45); ABG pO2 62 mmHg (83-108)
[2022-04-04] MEDS: Albuterol/Iprat 2.5/0.5MG 3 ML AMPUL.NEB INHALE ×3 (08:17→17:47)
[2022-04-04] MEDS: Fluticasone Propionate 100 MCG BLST.W.DEV 2 PUFF INHALE (08:17)
[2022-04-04 08:34] LABS: MANUAL DIFF FLAG NO
[2022-04-04] MEDS: FLUoxetine HCl 20 MG CAPSULE 40 MG PO (08:35)
[2022-04-04] MEDS: Isosorbide Mononitrate 30 MG TAB.ER.24H PO (08:35)
[2022-04-04] MEDS: amLODIPine Besylate 10 MG TABLET PO (08:35)
[2022-04-04 08:36] LABS: Basophils Percent Auto 0.2 % (0-2); Eosinophils Absolute Auto 0.1 X10*3/uL (0.0-0.4); Eosinophils Percent Auto 2.4 % (0-4); Hematocrit 28.3 % (37.0-47.0); Hemoglobin 8.1 g/dl (12.0-16.0); Imm Gran Abs Auto 0.05 X10*3/uL (0.00-0.03); Lymphocytes Absolute Auto 0.6 X10*3/uL (1.2-4.9); Lymphocytes Percent Auto 10.8 % (20-40); Mean Corpuscular HGB Conc 28.6 g/dl (31.0-35.0); Mean Corpuscular Hemoglobin 26.8 pg (27.0-33.0); Mean Corpuscular Volume 93.7 fL (80.0-98.0); Mean Platelet Volume 10.3 fL (9.4-12.3); Monocytes Absolute Auto 0.5 X10*3/uL (0.1-1.2); Monocytes Percent Auto 10.4 % (2-11); Neutrophils Absolute Auto 3.8 x10*3/uL (2.0-8.3); Neutrophils Percent Auto 75.2 % (45-73); Platelet Count 129 X10*3/uL (160-400); Red Blood Count 3.02 X10*6/uL (4.20-5.50); Red Cell Distribution Width 17.8 % (11.0-16.0); White Blood Count 5.1 X10*3/uL (4.8-10.8)
[2022-04-04] MEDS: Cholecalciferol (Vitamin D3) 25 MCG TABLET PO (08:36)
[2022-04-04] MEDS: Aspirin Enteric Coated 81 MG TABLET.DR PO (08:36)
[2022-04-04] MEDS: risperiDONE 0.5 MG TABLET PO ×2 (08:36→21:18)
[2022-04-04] MEDS: Insulin Lispro 100 UNIT/ML 3 ML VIAL SUBCUT ×4 (08:37→21:11)
[2022-04-04] MEDS: Metoprolol Succinate ER 50 MG TAB.ER.24H PO (08:37)
[2022-04-04] MEDS: Enoxaparin Sodium 40 MG/0.4 ML SYRINGE SUBCUT (08:37)
[2022-04-04] MEDS: Nystatin Powder 15 GM BOTTLE 1 APPL TOPICAL ×2 (08:38→21:17)
[2022-04-04] MEDS: 0.9 % Sodium Chloride Flush 3 ML SYRINGE IVFLUSH ×3 (08:38→22:57)
[2022-04-04 08:41] LABS: NRBC Pct Auto 1.2 /100WBC (0.0-0.2)
[2022-04-04 09:03] LABS: Anion Gap 15 (12-20); Blood Urea Nitrogen 88 mg/dL (9-16); Calcium 8.4 mg/dL (8.4-10.2); Carbon Dioxide 26 mmol/L (22-29); Chloride 108 mmol/L (96-108); Creatinine Clr Calc Pharmacy 46.1; Estimated Glomerular Filt Rate 30; Glucose Random 247 mg/dL (60-115); Potassium 5.3 mmol/L (3.3-5.1); Sodium 144 mmol/L (135-145)
--- NOTE | 2022-04-04 09:47 | W.PM.CCCN ---
History of Present Illness Data of Consult Service Date: 04/04/22 Requesting physician: Bernadette Tucker Primary Care Provider: Tavo Huber MD HPI GUADALUPE Tucker asked me to look at Mrs. Mueller in regards to her sleepiness and her respiratory status. Very briefly, the patient is a 61 yo woman w PMHx of uncontrolled IDDM type 2, PVD, neuropathy, chronic venous stasis dermatitis, asthma/COPD overlap with chronic respiratory failure on prn home O2, nonischemic cardiomyopathy, htn, hld, CKD, morbid obesity (138kg, 5?2?), and psychiatric disease. She was recently hospitalized at [facility] for acute on chronic CHF and FELICIA.? According to our ED physician?s note, the discharge summary from March 22 revealed the patient had discharge diagnoses of acute on chronic renal failure, acute respiratory failure with hypoxia, anemia, CHF, COPD exacerbation, cellulitis, chest pain, community-acquired pneumonia, elevated D-dimer, hyperkalemia, hypokalemia, right pleural effusion, suicidal ideation, thrombocytopenia, volume overload.? Workup there included CTA of the chest, ultrasound of the right lower extremity which was negative for any DVT or PE.? She was treated with Bumex and then Lasix.? She was treated with Unasyn for her right lower extremity cellulitis, last day was March 20. Her Med Rec includes Bumex 2mg daily, Lasix 20 mg daily, gabapentin 1600 mg daily, Lyrica 100 mg bid, and Haldol 2 mg qhs. She was readmitted here on March 26 for worsening right lower extremity cellulitis (see the picture in the patient's H&P).? BUN/creatinine on admission were 16/0.97.? The Lasix was held and the Bumex was continued.? Her renal indices griselda.? The Bumex was stopped and the patient was put on Lasix 20 mg bid.? The patient refused to wear the CPAP mask at night because of inability to tolerate due to anxiety.? She had episodes of shouting/anxiety, and was seen by Psychiatry.? She was scheduled to go home on April 01 the patient refused to go to rehab, and the family felt she was not safe at home. Her renal indices continues to rise, and she became increasingly somnolent and developed hypercarbia.? GUADALUPE Tucker called me about her yesterday.? I reviewed her chart on the computer and was struck by two things: First, a venous pCO2 of 64 (equivalent to an arterial pCO2 in the range of about 54-57) would generally not cause a depressed mental status.? Rather, her sleepiness was more likely secondary to the gabapentin and Lyrica that she?s on, in the face declining renal function.? 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 Second, her BUN and creatinine are rising, most notably with a marked rise in the ratio.? This suggests that either she?s dry, or she has right heart failure (cardiorenal syndrome).? Clinically, the former seems unlikely.? If the latter is the case, this is big trouble because it portends a poor prognosis if not reversible.? Therefore, the patient should be started on a Lasix drip.? If her renal indices rise with diuresis, that means that either she was dry or she has terminal right heart failure.? We have to hope that her renal indices fall with diuresis. The [facility] discharge note indicates that echo (at [facility]) on 03/10 reported grade 2 diastolic dysfunction with EF 25-35%.? It didn?t comment on her right heart.? I?ve requested the [facility] echo report by fax. Our records show an echo here on 11/23/20 which reported:? Normal LV cavity size; mildly increased LV wall thickness; LV systolic function mild to moderately decreased, w EF 44% and global hypokinesis with regional wall motion abnormalities in the basal inferior and inferolateral wall; elevated filling pressures; grade I diastolic dysfunction; normal RV cavity size and systolic function; normal LA and RA; no or AI; mild MR; trace TR; IVC mildly dilated w > 50% insp collapse; normal RVSP. I went up to see the patient this morning.? She was fully awake and alert, able to tell me her address, the year, and who the President and Ocean Rescue Lieutenant are.? She was breathing easy on [place] oxygen.? She has? a head and neck habitus very suggestive of DANIEL.? No visible JVD.? She has 2+ edema, possibly anasarca.? LABORATORY DATA:? Notably, BUN/creatinine are 88/1.75 (yesterday was 87/1.8), bicarb is 26, potassium is 5.3.? Arterial blood gas this morning (unstated FiO2) showed 7.27/68/62/+3 IMPRESSION: 1. Morbid obesity. (Would ensure that she's not given any added sweets, nothing with high fructose corn syrup in it, no fruit juices, and no soda, not even diet soda.) 2. It?s a virtual certainty that she has DANIEL.? She must wear CPAP or BiPAP at night.? If she needs to be given Haldol or some other antipsychotic or have a sitter, so be it. 3. Anxiety disorder or other psychiatric disease.? Not an insignificant problem.? Being addressed by psychiatry. 4. Hypercarbic respiratory failure.? Multifactorial, undoubtedly including OHS and DANIEL. She should have a venous blood gas done every morning with her routine daily labs, so that it minimizes her phlebotomies. 5. Daytime sleepiness.? Gabapentin and Lyrica are more likely the cause than her moderate hypercarbia.? Furthermore, given her obesity, the patient may be prone to excessive daytime sleepiness.? Seems to me that Provigil is the perfect drug for her.? I would give that a try, 200 mg every morning, and see if that works, without provoking her psychiatric disease. Additionally, she should be OOB in a chair during the day, and walking if possible. Without exaggeration, the bed is her enemy. 6. Acute kidney injury.? As noted above, likely secondary to right heart failure. 7. Right heart failure.? She needs to be massively diuresed.? Recommend a Lasix drip starting at 10 mg/hour, with Diuril if necessary. She is safe on med-surg, w telemetry monitoring.? No need for intensive care. Discussed at length w GUADALUPE Tucker. [facility] Past Medical History Medical History Acute on chronic combined systolic and diastolic CHF (congestive heart failure) Asthma Cellulitis of right lower extremity Chronic pain CKD (chronic kidney disease) stage 3, GFR 30-59 ml/min Congestive heart failure Depression Diabetes Diabetic neuropathy, painful High cholesterol Hypertension Morbid obesity NICM (nonischemic cardiomyopathy) Obesity hypoventilation syndrome DANIEL (obstructive sleep apnea) Family History Family History Mother HTN (hypertension) Diabetes CAD (coronary artery disease) Father HTN (hypertension) Diabetes CAD (coronary artery disease) Maternal Grandmother CAD (coronary artery disease) Family history: reviewed and not pertinent Surgical History Surgical History Hx of cholecystectomy Social History Social History Household Members: None Household Members Other:: GRANDSON Housing: Apartment Housing Other:: Ensyn Do you presently have visiting nurse or other home services: Yes Alcohol intake: never Patient Tobacco Use Status: Former Tobacco user Tobacco use type: Cigarette Years Smoked: 38 Second Hand Smoke Exposure: No Use of substances other than those prescribed or required for medical reasons: No Substance Use Type: Marijuana Currently Displaying Signs/Symptoms of Drug Intoxication Withdrawal: No Have you been hit, kicked, punched, or otherwise hurt by someone within the past year? If so, by whom?: No Do you feel safe in your current relationship?: No Current Relationship Is there a partner from a previous relationship who is making you feel unsafe now?: No Are you made to feel afraid or neglected: No Advance Directives: Yes Advance Directives on File: Yes Advance Directives Date on File: 12/19/20 Do you have thoughts of harming others: None Do you have a plan to hurt others: No Plan Recently lost weight without trying: No Nutrition Risks: No Nutritional Risk Patient : No : No Poor oral hygiene: No service: No Current occupational status: disabled Meds Allergies Allergy/AdvReac Type Severity Reaction Status Date / Time acetaminophen [Tylenol] Allergy Intermediate vomiting, Verified 04/04/22 10:52 itching, hives ibuprofen Allergy Intermediate vommiting, Verified 04/04/22 10:51 itching morphine AdvReac Intermediate vomiting Verified 04/04/22 10:51 Active Medications: Current Medications Acetaminophen (Acetaminophen 325 Mg Tablet) 650 mg PO Q6H PRN PRN Reason: Pain, Mild (Pain Scale 1-3) Last Admin: 03/30/22 07:32 Dose: 650 mg Albuterol/Ipratropium (Albuterol/Iprat 2.5/0.5mg 3 Ml Ampul.Neb) 3 ml INHALE RQ6H HI Last Admin: 04/04/22 08:17 Dose: 3 ml Amlodipine Besylate (Amlodipine Besylate 10 Mg Tablet) 10 mg PO DAILY [facility]; Protocol Last Admin: 04/04/22 08:35 Dose: 10 mg Aspirin (Aspirin Enteric Coated 81 Mg Tablet.Dr) 81 mg PO DAILY [facility] Last Admin: 04/04/22 08:36 Dose: 81 mg Atorvastatin Calcium (Atorvastatin Calcium 10 Mg Tablet) 10 mg PO BEDTIME [facility] Last Admin: 04/03/22 20:23 Dose: 10 mg Clonidine HCl (Clonidine Hcl 0.1 Mg Tablet) 0.1 mg PO TID PRN; Protocol PRN Reason: hyperarousal, anxiety, panic Last Admin: 04/04/22 04:01 Dose: 0.1 mg Doxycycline Hyclate (Doxycycline Hyclate 100 Mg Tablet) 100 mg PO Q12H [facility] Last Admin: 04/04/22 05:41 Dose: 100 mg Enoxaparin Sodium (Enoxaparin Sodium 40 Mg/0.4 Ml Syringe) 40 mg SUBCUT Q24H [facility] Last Admin: 04/04/22 08:37 Dose: 40 mg Fluoxetine HCl (Fluoxetine Hcl 20 Mg Capsule) 40 mg PO DAILY [facility] Last Admin: 04/04/22 08:35 Dose: 40 mg Fluticasone Propionate (Fluticasone Propionate 100 Mcg Blst.W.Dev) 2 puff INHALE RBID [facility] Last Admin: 04/04/22 08:17 Dose: 2 puff Gabapentin (Gabapentin 400 Mg Capsule) 800 mg PO BEDTIME [facility] Last Admin: 04/02/22 20:25 Dose: 800 mg Gabapentin (Gabapentin 100 Mg Capsule) 200 mg PO BID@0900,1200 [facility] Furosemide 200 mg/ Sodium (Chloride) 100 mls @ 2.5 mls/hr IVCONT .Q24H [facility] Last Admin: 04/03/22 16:58 Dose: 5 mg/hr, 2.5 mls/hr Insulin Glargine (Insulin Glargine,Hum.Rec.Anlog 100 Unit/Ml 10 Ml Vial) 50 unit SUBCUT BEDTIME [facility] Last Admin: 04/03/22 20:23 Dose: 50 unit Insulin Human Lispro (Insulin Lispro 100 Unit/Ml 3 Ml Vial) 0 unit SUBCUT QIDACHS [facility]; Protocol Last Admin: 04/04/22 08:37 Dose: 4 unit Isosorbide Mononitrate (Isosorbide Mononitrate 30 Mg Tab.Er.24h) 30 mg PO DAILY [facility]; Protocol Last Admin: 04/04/22 08:35 Dose: 30 mg Meclizine HCl (Meclizine Hcl 25 Mg Tablet) 25 mg PO TID PRN PRN Reason: Dizziness Last Admin: 04/01/22 16:09 Dose: 25 mg Metoprolol Succinate (Metoprolol Succinate Er 50 Mg Tab.Er.24h) 50 mg PO DAILY [facility]; Protocol Last Admin: 04/04/22 08:37 Dose: 50 mg Nystatin (Nystatin Powder 15 Gm Bottle) 1 appl TOPICAL BID [facility]; Protocol Last Admin: 04/04/22 08:38 Dose: 1 appl Omeprazole (Omeprazole 20 Mg Capsule.Dr) 20 mg PO BEDTIME [facility] Last Admin: 04/03/22 20:23 Dose: 20 mg Pharmacy Consult (Consult Rx Perform Med Rec) 1 each MISCELLANE ONCE PRN PRN Reason: Consult order Pharmacy Consult (Consult Rx Vancomycin Dosing) 1 each MISCELLANE DAILY PRN PRN Reason: Consult order Polyethylene Glycol (Polyethylene Glycol 3350 17 Gm Powd.Pack) 17 gm PO DAILY PRN PRN Reason: constipation Pregabalin (Pregabalin 100 Mg Capsule) 100 mg PO BID [facility] Last Admin: 04/03/22 09:26 Dose: 100 mg Risperidone (Risperidone 0.5 Mg Tablet) 0.5 mg PO BID [facility] Last Admin: 04/04/22 08:36 Dose: 0.5 mg Sodium Chloride (0.9 % Sodium Chloride Flush 3 Ml Syringe) 3 ml IVFLUSH QSHIFT [facility] Last Admin: 04/04/22 08:38 Dose: 3 ml Tizanidine HCl (Tizanidine Hcl 4 Mg Tablet) 4 mg PO DAILY@1600 [facility] Last Admin: 04/03/22 17:00 Dose: Not Given Vitamin D (Cholecalciferol (Vitamin D3) 25 Mcg Tablet) 25 mcg PO DAILY [facility] Last Admin: 04/04/22 08:36 Dose: 25 mcg Home Medications Medication Instructions Recorded Confirmed Last Taken Type albuterol sulfate 90 mcg/actuation 2 puff inhalation Q4H PRN Dyspnea 11/23/20 03/26/22 1 Day Ago History aerosol inhaler (ProAir HFA) ~03/31/21 aspirin 81 mg tablet,delayed 81 mg PO DAILY 11/23/20 03/26/22 1 Day Ago History release ~03/31/21 fluoxetine 40 mg capsule 40 mg PO DAILY 11/23/20 03/26/22 1 Day Ago History ~03/31/21 fluticasone propionate 110 2 puff inhalation BID 11/23/20 03/26/22 1 Day Ago History mcg/actuation HFA aerosol inhaler ~03/31/21 (Flovent HFA) metoprolol succinate 50 mg 50 mg PO DAILY 11/23/20 03/26/22 1 Day Ago History tablet,extended release 24 hr ~03/31/21 omeprazole 20 mg capsule,delayed 20 mg PO BEDTIME 11/23/20 03/26/22 1 Day Ago History release ~03/31/21 simvastatin 20 mg tablet 20 mg PO BEDTIME 11/23/20 03/26/22 1 Day Ago History ~03/31/21 isosorbide mononitrate 30 mg 30 mg PO DAILY 12/11/20 03/26/22 1 Day Ago History tablet,extended release 24 hr ~03/31/21 tizanidine 4 mg tablet 4 mg PO BEDTIME 12/11/20 03/26/22 1 Day Ago History ~03/31/21 gabapentin 400 mg capsule 400 mg PO BID@0900,1200 01/09/21 03/26/22 1 Day Ago History ~03/31/21 amlodipine 10 mg tablet 1 tab PO DAILY 06/07/21 03/26/22 Unknown History bumetanide 2 mg tablet 1 tab PO DAILY 06/07/21 03/26/22 Unknown History cholecalciferol (vitamin D3) 25 1 cap PO DAILY 06/07/21 03/26/22 Unknown History mcg (1,000 unit) capsule gabapentin 400 mg capsule 800 mg PO BEDTIME 06/07/21 03/26/22 Unknown History insulin glargine 100 unit/mL 80 unit subcut BEDTIME 06/07/21 03/26/22 Unknown History subcutaneous solution (Lantus U-100 Insulin) meclizine 25 mg tablet 25 mg PO TID PRN Dizziness 06/07/21 03/26/22 Unknown History pregabalin 100 mg capsule 1 cap PO BID 06/08/21 03/26/22 Unknown History furosemide 20 mg tablet 1 tab PO DAILY 03/26/22 03/26/22 Unknown History haloperidol 2 mg tablet 1 tab PO BEDTIME 03/26/22 03/26/22 Unknown History Physical Exam Vital Signs: Vital Signs: Last Vital Signs Temp 97.0 F 04/04/22 07:29 Pulse 87 04/04/22 08:27 Resp 20 04/04/22 08:27 BP 137/53 L 04/04/22 07:29 Pulse Ox 93 04/04/22 07:29 O2 Del Method 04/04/22 07:29 O2 Flow Rate 4.5 04/04/22 07:29 BMI result Body Mass Index 55.8 Results Labs CBC & Chem 7: 04/04/22 08:31 04/04/22 08:31 Labs: Short CBC 04/03/22 04/04/22 Range/Units 11:01 08:31 WBC 6.2 5.1 (4.8-10.8) X10*3/uL Hgb 8.5 L 8.1 L (12.0-16.0) g/dl Hct 30.2 L 28.3 L (37.0-47.0) % Plt Count 126 L D 129 L (160-400) X10*3/uL BMP 04/03/22 04/04/22 04/04/22 11:02 06:19 08:31 Sodium 141 143 144 Potassium 5.5 H 5.3 H 5.3 H Chloride 107 107 108 Carbon Dioxide 25 26 26 BUN 86 H 87 H 88 H Creatinine 1.83 H 1.80 H 1.75 H Calcium 8.2 L 8.3 L 8.4 Urine 04/04/22 Range/Units 03:03 Urine Color Yellow Urine Appearance Clear Urine pH 5.0 (5.0-9.0) Ur Specific [place] 1.010 (1.005-1.025) Urine Protein Negative (Neg-Trace) mg/dL Urine Glucose (UA) Negative (Negative) mg/dL
[2022-04-04 10:51] LABS: ABG Refer to POC result
[2022-04-04 11:15] LABS: Glucose, Whole Blood 200 mg/dL (60-115)
[2022-04-04 11:24] LABS: Iron 37 mcg/dL (30-160); Percent Iron Saturation 12 % (15-50); Total Iron Binding Capacity 320 mcg/dL (228-428); Unsaturated Iron Binding 283 ug/dL
[2022-04-04 11:44] LABS: Ferritin 150 ng/mL (10-250)
[2022-04-04 11:47] LABS: Folate 8.8 ng/mL (> or = 4.0); Vitamin B12 292 pg/mL (200-900)
[2022-04-04 11:53] LABS: B Type Natriuretic Peptide 726 pg/mL (<100)
[2022-04-04] MEDS: Gabapentin 100 MG CAPSULE 200 MG PO (12:06)
--- NOTE | 2022-04-04 12:23 | PM.CNPUL ---
History of Present Illness History of Present Illness Consult date: 04/04/22 Reason for consult: dyspnea, asthma, hypoxemia and other (jose, Chronic Resp. failure) Chief complaint: RLE pain Narrative: I have seen this patient this morning for pulmonary consultation. 61 years old female with morbid obesity, mainly admitted this time because of stasis edema of the legs and cellulitis of the right lower extremity, which is being treated with antibiotics. Her lap test has shown that she has acute on chronic respiratory failure with hypercapnia and hypoxemia. She is also being treated for acute on chronic congestive heart failure. Past history includes : Morbid obesity Obstructive sleep apnea, patient not compliant with CPAP therapy. Chronic respiratory failure with at least nocturnal hypoxemia and patient has been on O2 at night and also intermittently during the day. Chronic bronchial asthma says plus restrictive pulmonary disorder. Congestive heart failure Chronic stasis edema of the legs. Insulin-dependent diabetes mellitus poorly controlled complicated by neuropathy and peripheral vascular disease. Mental disorder probably bipolar panic disorder. For her pulmonary issues she is supposed to be using Flovent-1102 puffs b.i.d. DuoNeb updrafts Q 6 hours, O2 2 L/minute, , CPAP was ordered in February 2021 but she did not use it after a few weeks, claiming that she feels claustrophobic with the mask on. Review of Systems Review of Systems: Yes Unobtainable due to mental condition PMFSH Past Medical History Medical History Acute on chronic combined systolic and diastolic CHF (congestive heart failure) Asthma Cellulitis of right lower extremity Chronic pain CKD (chronic kidney disease) stage 3, GFR 30-59 ml/min Congestive heart failure Depression Diabetes Diabetic neuropathy, painful High cholesterol Hypertension Morbid obesity NICM (nonischemic cardiomyopathy) Obesity hypoventilation syndrome JOSE (obstructive sleep apnea) Family History Family History Mother HTN (hypertension) Diabetes CAD (coronary artery disease) Father HTN (hypertension) Diabetes CAD (coronary artery disease) Maternal Grandmother CAD (coronary artery disease) Family history: reviewed and not pertinent Surgical History Surgical History Hx of cholecystectomy Social History Social History Household Members: None Household Members Other:: GRANDSON Housing: Apartment Housing Other:: [employer] Do you presently have visiting nurse or other home services: Yes Alcohol intake: never Patient Tobacco Use Status: Former Tobacco user Tobacco use type: Cigarette Years Smoked: 38 Second Hand Smoke Exposure: No Use of substances other than those prescribed or required for medical reasons: No Substance Use Type: Marijuana Currently Displaying Signs/Symptoms of Drug Intoxication Withdrawal: No Have you been hit, kicked, punched, or otherwise hurt by someone within the past year? If so, by whom?: No Do you feel safe in your current relationship?: No Current Relationship Is there a partner from a previous relationship who is making you feel unsafe now?: No Are you made to feel afraid or neglected: No Advance Directives: Yes Advance Directives on File: Yes Advance Directives Date on File: 12/19/20 Do you have thoughts of harming others: None Do you have a plan to hurt others: No Plan Recently lost weight without trying: No Nutrition Risks: No Nutritional Risk Patient : No : No Poor oral hygiene: No service: No Current occupational status: disabled Meds Allergies Allergy/AdvReac Type Severity Reaction Status Date / Time acetaminophen [Tylenol] Allergy Intermediate vomiting, Verified 04/04/22 10:52 itching, hives ibuprofen Allergy Intermediate vommiting, Verified 04/04/22 10:51 itching morphine AdvReac Intermediate vomiting Verified 04/04/22 10:51 Active Medications: Current Medications Acetaminophen (Acetaminophen 325 Mg Tablet) 650 mg PO Q6H PRN PRN Reason: Pain, Mild (Pain Scale 1-3) Last Admin: 03/30/22 07:32 Dose: 650 mg Albuterol/Ipratropium (Albuterol/Iprat 2.5/0.5mg 3 Ml Ampul.Neb) 3 ml INHALE RQ6H [facility] Last Admin: 04/04/22 11:34 Dose: 3 ml Amlodipine Besylate (Amlodipine Besylate 10 Mg Tablet) 10 mg PO DAILY [facility]; Protocol Last Admin: 04/04/22 08:35 Dose: 10 mg Aspirin (Aspirin Enteric Coated 81 Mg Tablet.) 81 mg PO DAILY [facility] Last Admin: 04/04/22 08:36 Dose: 81 mg Atorvastatin Calcium (Atorvastatin Calcium 10 Mg Tablet) 10 mg PO BEDTIME [facility] Last Admin: 04/03/22 20:23 Dose: 10 mg Clonidine HCl (Clonidine Hcl 0.1 Mg Tablet) 0.1 mg PO TID PRN; Protocol PRN Reason: hyperarousal, anxiety, panic Last Admin: 04/04/22 04:01 Dose: 0.1 mg Doxycycline Hyclate (Doxycycline Hyclate 100 Mg Tablet) 100 mg PO Q12H [facility] Last Admin: 04/04/22 05:41 Dose: 100 mg Enoxaparin Sodium (Enoxaparin Sodium 40 Mg/0.4 Ml Syringe) 40 mg SUBCUT Q24H [facility] Last Admin: 04/04/22 08:37 Dose: 40 mg Fluoxetine HCl (Fluoxetine Hcl 20 Mg Capsule) 40 mg PO DAILY [facility] Last Admin: 04/04/22 08:35 Dose: 40 mg Fluticasone Propionate (Fluticasone Propionate 100 Mcg Blst.W.Dev) 2 puff INHALE RBID [facility] Last Admin: 04/04/22 08:17 Dose: 2 puff Gabapentin (Gabapentin 400 Mg Capsule) 800 mg PO BEDTIME [facility] Last Admin: 04/02/22 20:25 Dose: 800 mg Gabapentin (Gabapentin 100 Mg Capsule) 200 mg PO BID@0900,1200 [facility] Last Admin: 04/04/22 12:06 Dose: 200 mg Furosemide 200 mg/ Sodium (Chloride) 100 mls @ 2.5 mls/hr IVCONT .Q24H [facility] Last Admin: 04/03/22 16:58 Dose: 5 mg/hr, 2.5 mls/hr Insulin Glargine (Insulin Glargine,Hum.Rec.Anlog 100 Unit/Ml 10 Ml Vial) 50 unit SUBCUT BEDTIME [facility] Last Admin: 04/03/22 20:23 Dose: 50 unit Insulin Human Lispro (Insulin Lispro 100 Unit/Ml 3 Ml Vial) 0 unit SUBCUT QIDACHS [facility]; Protocol Last Admin: 04/04/22 12:06 Dose: 2 unit Isosorbide Mononitrate (Isosorbide Mononitrate 30 Mg Tab.Er.24h) 30 mg PO DAILY [facility]; Protocol Last Admin: 04/04/22 08:35 Dose: 30 mg Meclizine HCl (Meclizine Hcl 25 Mg Tablet) 25 mg PO TID PRN PRN Reason: Dizziness Last Admin: 04/01/22 16:09 Dose: 25 mg Metoprolol Succinate (Metoprolol Succinate Er 50 Mg Tab.Er.24h) 50 mg PO DAILY [facility]; Protocol Last Admin: 04/04/22 08:37 Dose: 50 mg Nystatin (Nystatin Powder 15 Gm Bottle) 1 appl TOPICAL BID [facility]; Protocol Last Admin: 04/04/22 08:38 Dose: 1 appl Omeprazole (Omeprazole 20 Mg Capsule.Dr) 20 mg PO BEDTIME [facility] Last Admin: 04/03/22 20:23 Dose: 20 mg Pharmacy Consult (Consult Rx Perform Med Rec) 1 each MISCELLANE ONCE PRN PRN Reason: Consult order Pharmacy Consult (Consult Rx Vancomycin Dosing) 1 each MISCELLANE DAILY PRN PRN Reason: Consult order Polyethylene Glycol (Polyethylene Glycol 3350 17 Gm Powd.Pack) 17 gm PO DAILY PRN PRN Reason: constipation Pregabalin (Pregabalin 100 Mg Capsule) 100 mg PO BID [facility] Last Admin: 04/03/22 09:26 Dose: 100 mg Risperidone (Risperidone 0.5 Mg Tablet) 0.5 mg PO BID [facility] Last Admin: 04/04/22 08:36 Dose: 0.5 mg Sodium Chloride (0.9 % Sodium Chloride Flush 3 Ml Syringe) 3 ml IVFLUSH QSHIFT [facility] Last Admin: 04/04/22 08:38 Dose: 3 ml Tizanidine HCl (Tizanidine Hcl 4 Mg Tablet) 4 mg PO DAILY@1600 [facility] Last Admin: 04/03/22 17:00 Dose: Not Given Vitamin D (Cholecalciferol (Vitamin D3) 25 Mcg Tablet) 25 mcg PO DAILY [facility] Last Admin: 04/04/22 08:36 Dose: 25 mcg Home Medications Medication Instructions Recorded Confirmed Last Taken Type albuterol sulfate 90 mcg/actuation 2 puff inhalation Q4H PRN Dyspnea 11/23/20 03/26/22 1 Day Ago History aerosol inhaler (ProAir HFA) ~03/31/21 aspirin 81 mg tablet,delayed 81 mg PO DAILY 11/23/20 03/26/22 1 Day Ago History release ~03/31/21 fluoxetine 40 mg capsule 40 mg PO DAILY 11/23/20 03/26/22 1 Day Ago History ~03/31/21 fluticasone propionate 110 2 puff inhalation BID 11/23/20 03/26/22 1 Day Ago History mcg/actuation HFA aerosol inhaler ~03/31/21 (Flovent HFA) metoprolol succinate 50 mg 50 mg PO DAILY 11/23/20 03/26/22 1 Day Ago History tablet,extended release 24 hr ~03/31/21 omeprazole 20 mg capsule,delayed 20 mg PO BEDTIME 11/23/20 03/26/22 1 Day Ago History release ~03/31/21 simvastatin 20 mg tablet 20 mg PO BEDTIME 11/23/20 03/26/22 1 Day Ago History ~03/31/21 isosorbide mononitrate 30 mg 30 mg PO DAILY 12/11/20 03/26/22 1 Day Ago History tablet,extended release 24 hr ~03/31/21 tizanidine 4 mg tablet 4 mg PO BEDTIME 12/11/20 03/26/22 1 Day Ago History ~03/31/21 gabapentin 400 mg capsule 400 mg PO BID@0900,1200 01/09/21 03/26/22 1 Day Ago History ~03/31/21 amlodipine 10 mg tablet 1 tab PO DAILY 06/07/21 03/26/22 Unknown History bumetanide 2 mg tablet 1 tab PO DAILY 06/07/21 03/26/22 Unknown History cholecalciferol (vitamin D3) 25 1 cap PO DAILY 06/07/21 03/26/22 Unknown History mcg (1,000 unit) capsule gabapentin 400 mg capsule 800 mg PO BEDTIME 06/07/21 03/26/22 Unknown History insulin glargine 100 unit/mL 80 unit subcut BEDTIME 06/07/21 03/26/22 Unknown History subcutaneous solution (Lantus U-100 Insulin) meclizine 25 mg tablet 25 mg PO TID PRN Dizziness 06/07/21 03/26/22 Unknown History pregabalin 100 mg capsule 1 cap PO BID 06/08/21 03/26/22 Unknown History furosemide 20 mg tablet 1 tab PO DAILY 03/26/22 03/26/22 Unknown History haloperidol 2 mg tablet 1 tab PO BEDTIME 03/26/22 03/26/22 Unknown History Physical Exam Vital Signs: Vital Signs: Last Vital Signs Temp 98.1 F 04/04/22 11:53 Pulse 89 04/04/22 11:53 Resp 20 04/04/22 11:53 BP 122/56 L 04/04/22 11:53 Pulse Ox 93 04/04/22 11:53 O2 Del Method 04/04/22 11:53 O2 Flow Rate 3.5 04/04/22 11:53 BMI result Body Mass Index 55.8 Const: Other: Morbidly obese with round face, very narrow oropharynx. Confined to the bed. General: comfortable, no acute distress, alert and awake Orientation/consciousness: patient oriented x3 HEENT: Other: Could not examine Mouth: oropharynx normal Eyes: General: appearance normal, both eyes and all related structures Neck: Neck: Yes normal visual inspection, Yes no lymphadenopathy, Yes trachea midline, Yes no JVD and Yes other (Neck is very short and obese) Thyroid: Thyroid normal Chest: Chest palpation & inspection: normal inspection of the chest, normal palpation of entire chest wall and no tenderness Resp: Other: Percussion note is not perceptible due to thick chest wall. Breath sounds are very distant especially over the lower lobes. She has inspiratory crepitations over both lower lobes, no wheezes are heard. Cardio: Palpation: PMI not normal (Not palpable) Rate: regular rate Rhythm: regular rhythm Heart sounds: no gallops and no murmurs GI: Palpation (GI): Soft to palpation, nontender, No hepatosplenomegaly present, no masses and Other GI palpation findings present Auscultation: normal bowel sounds and other (Abdomen is grossly obese and protuberant) Back/Spine/Pelvis: Thoracic/Lumbar Spine: thoracic and lumbar spine normal to inspection Skin: General skin exam: no rashes or lesions noted Neuro: General: patient oriented x3 and no focal motor deficits Cranial nerves: Yes CN's II-XII intact bilaterally Extrem: General: Yes normal to inspection, Yes no calf tenderness, Yes edema (Bilateral leg edema) and Yes venous stasis dermatitis Psych: Speech and movement: Normal speech and movement present Results Laboratory Findings CBC and BMP: 04/04/22 08:31 04/04/22 08:31 Abnormal lab findings: Abnormal Labs 03/26/22 03/26/22 03/26/22 01:47 01:48 12:03 RBC 3.62 L Hgb 9.6 L Hct 32.9 L MCH 26.5 L MCHC 29.2 L RDW 17.7 H Plt Count MPV 9.1 L Immature Gran % (Auto) Neut % (Auto) Lymph % (Auto) Lymph # (Auto) Abs Immat Gran (auto) Absolute Nucleated RBC Nucleated RBC % (auto) ABG pH at Pt Temp ABG pCO2 at Pt Temp ABG pO2 at Pt Temp ABG HCO3 VBG pH VBG HCO3 Sodium 146 H Potassium Chloride BUN Creatinine POC Glucose 201 H Random Glucose 246 H Calcium 8.2 L % Saturation B-Natriuretic Peptide Urine Blood Urine RBC 03/26/22 03/26/22 03/27/22 17:50 20:56 06:14 RBC 2.97 L Hgb 8.1 L Hct 28.1 L MCH MCHC 28.8 L RDW 17.6 H Plt Count MPV Immature Gran % (Auto) Neut % (Auto) Lymph % (Auto) Lymph # (Auto) Abs Immat Gran (auto) Absolute Nucleated RBC Nucleated RBC % (auto) ABG pH at Pt Temp ABG pCO2 at Pt Temp ABG pO2 at Pt Temp ABG HCO3 VBG pH VBG HCO3 Sodium Potassium Chloride BUN Creatinine POC Glucose 236 H 228 H Random Glucose Calcium % Saturation B-Natriuretic Peptide Urine Blood Urine RBC 03/27/22 03/27/22 03/27/22 06:14 07:54 11:17 RBC Hgb Hct MCH MCHC RDW Plt Count MPV Immature Gran % (Auto) Neut % (Auto) Lymph % (Auto) Lymph # (Auto) Abs Immat Gran (auto) Absolute Nucleated RBC Nucleated RBC % (auto) ABG pH at Pt Temp ABG pCO2 at Pt Temp ABG pO2 at Pt Temp ABG HCO3 VBG pH VBG HCO3 Sodium Potassium Chloride 110 H BUN 28 H D Creatinine POC Glucose 221 H 182 H Random Glucose 245 H Calcium 7.7 L D % Saturation B-Natriuretic Peptide Urine Blood Urine RBC 03/27/22 03/27/22 03/27/22 13:00 16:48 23:05 RBC Hgb Hct MCH MCHC RDW Plt Count MPV Immature Gran % (Auto) Neut % (Auto) Lymph % (Auto) Lymph # (Auto) Abs Immat Gran (auto) Absolute Nucleated RBC Nucleated RBC % (auto) ABG pH at Pt Temp ABG pCO2 at Pt Temp ABG pO2 at Pt Temp ABG HCO3 VBG pH 7.30 L VBG HCO3 27 H Sodium Potassium Chloride BUN Creatinine POC Glucose 169 H 212 H Random Glucose Calcium % Saturation B-Natriuretic Peptide Urine Blood Urine RBC 03/28/22 03/28/22 03/28/22 06:11 06:11 07:09 RBC 3.25 L Hgb 8.7 L Hct 31.0 L MCH 26.8 L MCHC 28.1 L RDW 17.3 H Plt Count MPV 9.3 L Immature Gran % (Auto) Neut % (Auto) Lymph % (Auto) Lymph # (Auto) Abs Immat Gran (auto) Absolute Nucleated RBC Nucleated RBC % (auto) ABG pH at Pt Temp ABG pCO2 at Pt Temp ABG pO2 at Pt Temp ABG HCO3 VBG pH VBG HCO3 Sodium Potassium Chloride 109 H BUN 38 H Creatinine POC Glucose 294 H Random Glucose 322 H Calcium 8.0 L % Saturation B-Natriuretic Peptide Urine Blood Urine RBC 03/28/22 03/28/22 03/28/22 11:33 16:26 20:38 RBC Hgb Hct MCH MCHC RDW Plt Count MPV Immature Gran % (Auto) Neut % (Auto) Lymph % (Auto) Lymph # (Auto) Abs Immat Gran (auto) Absolute Nucleated RBC Nucleated RBC % (auto) ABG pH at Pt Temp ABG pCO2 at Pt Temp ABG pO2 at Pt Temp ABG HCO3 VBG pH VBG HCO3 Sodium Potassium Chloride BUN Creatinine POC Glucose 292 H 169 H 263 H Random Glucose Calcium % Saturation B-Natriuretic Peptide Urine Blood Urine RBC 03/29/22 03/29/22 03/29/22 07:36 11:44 16:00 RBC Hgb Hct MCH MCHC RDW Plt Count MPV Immature Gran % (Auto) Neut % (Auto) Lymph % (Auto) Lymph # (Auto) Abs Immat Gran (auto) Absolute Nucleated RBC Nucleated RBC % (auto) ABG pH at Pt Temp ABG pCO2 at Pt Temp ABG pO2 at Pt Temp ABG HCO3 VBG pH VBG HCO3 Sodium Potassium Chloride BUN Creatinine POC Glucose 204 H 252 H 210 H Random Glucose Calcium % Saturation B-Natriuretic Peptide Urine Blood Urine RBC 03/29/22 03/29/22 03/30/22 16:01 19:37 06:03 RBC Hgb Hct MCH MCHC RDW Plt Count MPV Immature Gran % (Auto) Neut % (Auto) Lymph % (Auto) Lymph # (Auto) Abs Immat Gran (auto) Absolute Nucleated RBC Nucleated RBC % (auto) ABG pH at Pt Temp ABG pCO2 at Pt Temp ABG pO2 at Pt Temp ABG HCO3 VBG pH VBG HCO3 Sodium Potassium 5.4 H Chloride 109 H BUN 50 H Creatinine 1.51 H POC Glucose 226 H Random Glucose 245 H Calcium 7.9 L % Saturation B-Natriuretic Peptide Urine Blood Urine RBC 03/30/22 03/30/22 03/30/22 07:48 11:31 17:58 RBC Hgb Hct MCH MCHC RDW Plt Count MPV Immature Gran % (Auto) Neut % (Auto) Lymph % (Auto) Lymph # (Auto) Abs Immat Gran (auto) Absolute Nucleated RBC Nucleated RBC % (auto) ABG pH at Pt Temp ABG pCO2 at Pt Temp ABG pO2 at Pt Temp ABG HCO3 VBG pH VBG HCO3 Sodium Potassium Chloride BUN Creatinine POC Glucose 183 H 232 H 171 H Random Glucose Calcium % Saturation B-Natriuretic Peptide Urine Blood Urine RBC 03/30/22 03/31/22 03/31/22 19:21 05:12 06:52 RBC Hgb Hct MCH MCHC RDW Plt Count MPV Immature Gran % (Auto) Neut % (Auto) Lymph % (Auto) Lymph # (Auto) Abs Immat Gran (auto) Absolute Nucleated RBC Nucleated RBC % (auto) ABG pH at Pt Temp ABG pCO2 at Pt Temp ABG pO2 at Pt Temp ABG HCO3 VBG pH VBG HCO3 Sodium Potassium 5.3 H Chloride 109 H BUN 63 H Creatinine 1.44 H POC Glucose 194 H 161 H Random Glucose 199 H Calcium 7.8 L % Saturation B-Natriuretic Peptide Urine Blood Urine RBC 03/31/22 03/31/22 03/31/22 11:23 16:45 19:31 RBC Hgb Hct MCH MCHC RDW Plt Count MPV Immature Gran % (Auto) Neut % (Auto) Lymph % (Auto) Lymph # (Auto) Abs Immat Gran (auto) Absolute Nucleated RBC Nucleated RBC % (auto) ABG pH at Pt Temp ABG pCO2 at Pt Temp ABG pO2 at Pt Temp ABG HCO3 VBG pH VBG HCO3 Sodium Potassium Chloride BUN Creatinine POC Glucose 217 H 154 H 152 H Random Glucose Calcium % Saturation B-Natriuretic Peptide Urine Blood Urine RBC 04/01/22 04/01/22 04/01/22 07:09 08:19 19:39 RBC Hgb Hct MCH MCHC RDW Plt Count MPV Immature Gran % (Auto) Neut % (Auto) Lymph % (Auto) Lymph # (Auto) Abs Immat Gran (auto) Absolute Nucleated RBC Nucleated RBC % (auto) ABG pH at Pt Temp ABG pCO2 at Pt Temp ABG pO2 at Pt Temp ABG HCO3 VBG pH VBG HCO3 Sodium Potassium Chloride 110 H BUN 69 H Creatinine 1.52 H POC Glucose 116 H 162 H Random Glucose 124 H Calcium 7.9 L % Saturation B-Natriuretic Peptide Urine Blood Urine RBC 04/02/22 04/02/22 04/02/22 07:15 08:20 11:12 RBC Hgb Hct MCH MCHC RDW Plt Count MPV Immature Gran % (Auto) Neut % (Auto) Lymph % (Auto) Lymph # (Auto) Abs Immat Gran (auto) Absolute Nucleated RBC Nucleated RBC % (auto) ABG pH at Pt Temp ABG pCO2 at Pt Temp ABG pO2 at Pt Temp ABG HCO3 VBG pH VBG HCO3 Sodium Potassium 5.2 H Chloride BUN 79 H Creatinine 1.96 H POC Glucose 151 H 155 H Random Glucose 177 H Calcium % Saturation B-Natriuretic Peptide Urine Blood Urine RBC 04/02/22 04/02/22 04/03/22 15:24 19:44 07:11 RBC Hgb Hct MCH MCHC RDW Plt Count MPV Immature Gran % (Auto) Neut % (Auto) Lymph % (Auto) Lymph # (Auto) Abs Immat Gran (auto) Absolute Nucleated RBC Nucleated RBC % (auto) ABG pH at Pt Temp ABG pCO2 at Pt Temp ABG pO2 at Pt Temp ABG HCO3 VBG pH VBG HCO3 Sodium Potassium Chloride BUN Creatinine POC Glucose 164 H 164 H 131 H Random Glucose Calcium % Saturation B-Natriuretic Peptide Urine Blood Urine RBC 04/03/22 04/03/22 04/03/22 11:01 11:01 11:02 RBC 3.18 L Hgb 8.5 L Hct 30.2 L MCH 26.7 L MCHC 28.1 L RDW 17.6 H Plt Count 126 L D MPV Immature Gran % (Auto) Neut % (Auto) Lymph % (Auto) Lymph # (Auto) Abs Immat Gran (auto) Absolute Nucleated RBC 0.020 H Nucleated RBC % (auto) 0.3 H ABG pH at Pt Temp ABG pCO2 at Pt Temp ABG pO2 at Pt Temp ABG HCO3 VBG pH VBG HCO3 Sodium Potassium 5.5 H Chloride BUN 86 H Creatinine 1.83 H POC Glucose Random Glucose 149 H Calcium 8.2 L % Saturation B-Natriuretic Peptide 595 H Urine Blood Urine RBC 04/03/22 04/03/22 04/03/22 11:07 11:19 15:14 RBC Hgb Hct MCH MCHC RDW Plt Count MPV Immature Gran % (Auto) Neut % (Auto) Lymph % (Auto) Lymph # (Auto) Abs Immat Gran (auto) Absolute Nucleated RBC Nucleated RBC % (auto) ABG pH at Pt Temp ABG pCO2 at Pt Temp ABG pO2 at Pt Temp ABG HCO3 VBG pH 7.23 L VBG HCO3 27 H Sodium Potassium Chloride BUN Creatinine POC Glucose 141 H 162 H Random Glucose Calcium % Saturation B-Natriuretic Peptide Urine Blood Urine RBC 04/03/22 04/04/22 04/04/22 19:08 03:03 06:19 RBC Hgb Hct MCH MCHC RDW Plt Count MPV Immature Gran % (Auto) Neut % (Auto) Lymph % (Auto) Lymph # (Auto) Abs Immat Gran (auto) Absolute Nucleated RBC Nucleated RBC % (auto) ABG pH at Pt Temp ABG pCO2 at Pt Temp ABG pO2 at Pt Temp ABG HCO3 VBG pH VBG HCO3 Sodium Potassium 5.3 H Chloride BUN 87 H Creatinine 1.80 H POC Glucose 181 H Random Glucose 247 H Calcium 8.3 L % Saturation B-Natriuretic Peptide Urine Blood Small (1+) H Urine RBC 3-5 H 04/04/22 04/04/22 04/04/22 07:28 08:08 08:31 RBC 3.02 L Hgb 8.1 L Hct 28.3 L MCH 26.8 L MCHC 28.6 L RDW 17.8 H Plt Count 129 L MPV Immature Gran % (Auto) 1.0 H Neut % (Auto) 75.2 H Lymph % (Auto) 10.8 L Lymph # (Auto) 0.6 L Abs Immat Gran (auto) 0.05 H Absolute Nucleated RBC 0.060 H Nucleated RBC % (auto) 1.2 H ABG pH at Pt Temp 7.27 L ABG pCO2 at Pt Temp 68 H* ABG pO2 at Pt Temp 62 L ABG HCO3 31 H VBG pH VBG HCO3 Sodium Potassium Chloride BUN Creatinine POC Glucose 207 H Random Glucose Calcium % Saturation B-Natriuretic Peptide Urine Blood Urine RBC 04/04/22 04/04/22 04/04/22 08:31 08:31 10:58 RBC Hgb Hct MCH MCHC RDW Plt Count MPV Immature Gran % (Auto) Neut % (Auto) Lymph % (Auto) Lymph # (Auto) Abs Immat Gran (auto) Absolute Nucleated RBC Nucleated RBC % (auto) ABG pH at Pt Temp ABG pCO2 at Pt Temp ABG pO2 at Pt Temp ABG HCO3 VBG pH VBG HCO3 Sodium Potassium 5.3 H Chloride BUN 88 H Creatinine 1.75 H POC Glucose 200 H Random Glucose 247 H Calcium % Saturation 12 L B-Natriuretic Peptide 726 H Urine Blood Urine RBC Diagnostic Findings Chest x-ray: report reviewed and image reviewed Assessment and Plan (1) Morbid obesity: Status: Acute (2) Asthma: Status: Acute (3) JOSE (obstructive sleep apnea): Status: Acute (4) Respiratory failure: Status: Acute (5) Stasis dermatitis of both legs: Status: Acute (6) COPD (chronic obstructive pulmonary disease): Status: Acute Plan This patient with morbid obesity, diagnosis of obstructive sleep apnea but patient non compliant to CPAP, bronchial asthma/COPD, Cardiomyopathy with chronic congestive heart failure , stasis edema and dermatitis of the legs and cellulitis of right leg insulin-dependent diabetes mellitus, In addition she has chronic mental disorder, panic syndrome worse is bipolar disorder. Currently she has acute on chronic respiratory failure with significant hypercapnia and hypoxemia. She also has features of acute congestive heart failure. The ideal treatment in her case should consist of using BiPAP at night, pressure setting 15/6 cm, but unfortunately she is not able to use it and would not comply. For the time being she should be on oxygen supplementation to keep O2 sat just above 89-90%. Monitor with daily venous blood gases. She should be recommended to do deep breathing exercises with incentive spirometry every 2 hours while awake. She should be educated to do deep breathing exercises with pursed lip technique. Continue DuoNeb updrafts Q 6 hours while awake, and albuterol updraft Q 4-6 hours p.r.n.. Continue with aggressive diuretic therapy. Thank you for asking me to see this patient. Procedures Date of Service Date of Service: 04/04/22
--- NOTE | 2022-04-04 12:31 | HO.PM.IMPN ---
Subjective Subjective Date of Service: 04/04/22 Interval History: seen and examined this morning follow up for cellulitis, panic, CHF, respiratory failure difficult to arouse initially, then awake and alert and short time later was up overnight agitated, this morning calm Review of Systems Review of Systems: Yes all other systems are reviewed and are negative Constitutional Constitutional: Denies chills and Denies fever(s) Cardiovascular Cardiovascular: Denies chest pain, Denies palpitations and Denies dyspnea Respiratory Respiratory: Denies cough and Denies dyspnea Gastrointestinal Gastrointestinal: Denies abdominal pain Endocrine Endocrine: Denies palpitations Physical Exam Vital Signs: Vital Signs: Last Vital Signs Temp 98.1 F 04/04/22 11:53 Pulse 89 04/04/22 11:53 Resp 20 04/04/22 11:53 BP 122/56 L 04/04/22 11:53 Pulse Ox 93 04/04/22 11:53 O2 Del Method 04/04/22 11:53 O2 Flow Rate 3.5 04/04/22 11:53 BMI result Body Mass Index 55.8 Const: Other: difficult to arouse, but once awake, alert and talking General: no acute distress, alert and awake Nutritional Appearance: obese Resp: Other: diminished Effort & Inspection: no respiratory distress and no use of accessory muscles Cardio: Rate: regular rate Heart sounds: S1 normal heart sound present and S2 normal heart sound present GI: Inspection: No distended and Yes obesity Palpation (GI): Soft to palpation and nontender Extrem: Other: leg swelling improving; b/l UE edema improving Objective Data Active Medications Acetaminophen (Acetaminophen 325 Mg Tablet) 650 mg PO Q6H PRN PRN Reason: Pain, Mild (Pain Scale 1-3) Last Admin: 03/30/22 07:32 Dose: 650 mg Documented By: SURAJ Acetazolamide (Acetazolamide 250 Mg Tablet) 250 mg PO BID [facility] Albuterol/Ipratropium (Albuterol/Iprat 2.5/0.5mg 3 Ml Ampul.Neb) 3 ml INHALE RQ6H [facility] Last Admin: 04/04/22 11:34 Dose: 3 ml Documented By: OLIVIA Amlodipine Besylate (Amlodipine Besylate 10 Mg Tablet) 10 mg PO DAILY [facility]; Protocol Last Admin: 04/04/22 08:35 Dose: 10 mg Documented By: HAZEL Aspirin (Aspirin Enteric Coated 81 Mg Tablet.) 81 mg PO DAILY [facility] Last Admin: 04/04/22 08:36 Dose: 81 mg Documented By: HAZEL Atorvastatin Calcium (Atorvastatin Calcium 10 Mg Tablet) 10 mg PO BEDTIME [facility] Last Admin: 04/03/22 20:23 Dose: 10 mg Documented By: ADAMA Clonidine HCl (Clonidine Hcl 0.1 Mg Tablet) 0.1 mg PO TID PRN; Protocol PRN Reason: hyperarousal, anxiety, panic Last Admin: 04/04/22 04:01 Dose: 0.1 mg Documented By: RADHA Doxycycline Hyclate (Doxycycline Hyclate 100 Mg Tablet) 100 mg PO Q12H [facility] Last Admin: 04/04/22 05:41 Dose: 100 mg Documented By: RADHA Enoxaparin Sodium (Enoxaparin Sodium 40 Mg/0.4 Ml Syringe) 40 mg SUBCUT Q24H [facility] Last Admin: 04/04/22 08:37 Dose: 40 mg Documented By: HAZEL Fluoxetine HCl (Fluoxetine Hcl 20 Mg Capsule) 40 mg PO DAILY [facility] Last Admin: 04/04/22 08:35 Dose: 40 mg Documented By: HAZEL Fluticasone Propionate (Fluticasone Propionate 100 Mcg Blst.W.Dev) 2 puff INHALE RBID [facility] Last Admin: 04/04/22 08:17 Dose: 2 puff Documented By: OLIVIA Gabapentin (Gabapentin 400 Mg Capsule) 800 mg PO BEDTIME [facility] Last Admin: 04/02/22 20:25 Dose: 800 mg Documented By: KWASI Gabapentin (Gabapentin 100 Mg Capsule) 200 mg PO BID@0900,1200 [facility] Last Admin: 04/04/22 12:06 Dose: 200 mg Documented By: HAZEL Furosemide 200 mg/ Sodium (Chloride) 100 mls @ 2.5 mls/hr IVCONT .Q24H [facility] Last Admin: 04/03/22 16:58 Dose: 5 mg/hr, 2.5 mls/hr Documented By: EZRA Insulin Glargine (Insulin Glargine,Hum.Rec.Anlog 100 Unit/Ml 10 Ml Vial) 50 unit SUBCUT BEDTIME [facility] Last Admin: 04/03/22 20:23 Dose: 50 unit Documented By: ADAMA Insulin Human Lispro (Insulin Lispro 100 Unit/Ml 3 Ml Vial) 0 unit SUBCUT QIDACHS [facility]; Protocol Last Admin: 04/04/22 12:06 Dose: 2 unit Documented By: HAZEL Isosorbide Mononitrate (Isosorbide Mononitrate 30 Mg Tab.Er.24h) 30 mg PO DAILY [facility]; Protocol Last Admin: 04/04/22 08:35 Dose: 30 mg Documented By: HAZEL Meclizine HCl (Meclizine Hcl 25 Mg Tablet) 25 mg PO TID PRN PRN Reason: Dizziness Last Admin: 04/01/22 16:09 Dose: 25 mg Documented By: EZRA Metoprolol Succinate (Metoprolol Succinate Er 50 Mg Tab.Er.24h) 50 mg PO DAILY [facility]; Protocol Last Admin: 04/04/22 08:37 Dose: 50 mg Documented By: HAZEL Nystatin (Nystatin Powder 15 Gm Bottle) 1 appl TOPICAL BID [facility]; Protocol Last Admin: 04/04/22 08:38 Dose: 1 appl Documented By: HAZEL Omeprazole (Omeprazole 20 Mg Capsule.Dr) 20 mg PO BEDTIME [facility] Last Admin: 04/03/22 20:23 Dose: 20 mg Documented By: ADAMA Pharmacy Consult (Consult Rx Perform Med Rec) 1 each MISCELLANE ONCE PRN PRN Reason: Consult order Pharmacy Consult (Consult Rx Vancomycin Dosing) 1 each MISCELLANE DAILY PRN PRN Reason: Consult order Polyethylene Glycol (Polyethylene Glycol 3350 17 Gm Powd.Pack) 17 gm PO DAILY PRN PRN Reason: constipation Pregabalin (Pregabalin 100 Mg Capsule) 100 mg PO BID [facility] Last Admin: 04/03/22 09:26 Dose: 100 mg Documented By: EZRA Risperidone (Risperidone 0.5 Mg Tablet) 0.5 mg PO BID [facility] Last Admin: 04/04/22 08:36 Dose: 0.5 mg Documented By: HAZEL Sodium Chloride (0.9 % Sodium Chloride Flush 3 Ml Syringe) 3 ml IVFLUSH [facility] Last Admin: 04/04/22 08:38 Dose: 3 ml Documented By: HAZEL Tizanidine HCl (Tizanidine Hcl 4 Mg Tablet) 4 mg PO DAILY@1600 [facility] Last Admin: 04/03/22 17:00 Dose: Not Given Documented By: EZRA Non-Admin Reason: pt unable to take due to mental status Vitamin D (Cholecalciferol (Vitamin D3) 25 Mcg Tablet) 25 mcg PO DAILY [facility] Last Admin: 04/04/22 08:36 Dose: 25 mcg Documented By: HAZEL Labs CBC & Chem 7: 04/04/22 08:31 04/04/22 08:31 Labs: Laboratory Results - last 24 hr 04/03/22 04/03/22 04/04/22 15:14 19:08 03:03 MCV MCH MCHC RDW Plt Count MPV Immature Gran % (Auto) Neut % (Auto) Lymph % (Auto) [place] % (Auto) Eos % (Auto) Baso % (Auto) Lymph # (Auto) [place] # (Auto) Eos # (Auto) Baso # (Auto) Abs Immat Gran (auto) Absolute Neuts (auto) Absolute Nucleated RBC Nucleated RBC % (auto) O2 Saturation ABG pH at Pt Temp ABG pCO2 at Pt Temp ABG pO2 at Pt Temp ABG HCO3 ABG Base Excess (Actual) Anion Gap Estim Creat Clear Calc Estimated GFR POC Glucose 162 H 181 H Random Glucose Calcium Iron TIBC % Saturation Unsat Iron Binding Ferritin B-Natriuretic Peptide Vitamin B12 Folate Urine Color Yellow Urine Appearance Clear Urine pH 5.0 Ur Specific [place] 1.010 Urine Protein Negative Urine Glucose (UA) Negative Urine Ketones Negative Urine Blood Small (1+) H Urine Nitrite Negative Ur Leukocyte Esterase Negative Urine RBC 3-5 H Urine WBC 0-5 Ur Squamous Epith Cells 0-2 Urine Bacteria None Seen Hyaline Casts 11-20 Ur Random Sodium Urine Creatinine 04/04/22 04/04/22 04/04/22 03:04 06:19 07:28 MCV MCH MCHC RDW Plt Count MPV Immature Gran % (Auto) Neut % (Auto) Lymph % (Auto) [place] % (Auto) Eos % (Auto) Baso % (Auto) Lymph # (Auto) [place] # (Auto) Eos # (Auto) Baso # (Auto) Abs Immat Gran (auto) Absolute Neuts (auto) Absolute Nucleated RBC Nucleated RBC % (auto) O2 Saturation ABG pH at Pt Temp ABG pCO2 at Pt Temp ABG pO2 at Pt Temp ABG HCO3 ABG Base Excess (Actual) Anion Gap 15 Estim Creat Clear Calc 44.8 Estimated GFR 29 POC Glucose 207 H Random Glucose 247 H Calcium 8.3 L Iron TIBC % Saturation Unsat Iron Binding Ferritin B-Natriuretic Peptide Vitamin B12 Folate Urine Color Urine Appearance Urine pH Ur Specific [place] Urine Protein Urine Glucose (UA) Urine Ketones Urine Blood Urine Nitrite Ur Leukocyte Esterase Urine RBC Urine WBC Ur Squamous Epith Cells Urine Bacteria Hyaline Casts Ur Random Sodium 79.0 Urine Creatinine 46.06 04/04/22 04/04/22 04/04/22 08:08 08:31 08:31 MCV 93.7 MCH 26.8 L MCHC 28.6 L RDW 17.8 H Plt Count 129 L MPV 10.3 Immature Gran % (Auto) 1.0 H Neut % (Auto) 75.2 H Lymph % (Auto) 10.8 L [place] % (Auto) 10.4 Eos % (Auto) 2.4 Baso % (Auto) 0.2 Lymph # (Auto) 0.6 L [place] # (Auto) 0.5 Eos # (Auto) 0.1 Baso # (Auto) 0.0 Abs Immat Gran (auto) 0.05 H Absolute Neuts (auto) 3.8 Absolute Nucleated RBC 0.060 H Nucleated RBC % (auto) 1.2 H O2 Saturation 85.0 ABG pH at Pt Temp 7.27 L ABG pCO2 at Pt Temp 68 H* ABG pO2 at Pt Temp 62 L ABG HCO3 31 H ABG Base Excess (Actual) 3.8 Anion Gap 15 Estim Creat Clear Calc 46.1 Estimated GFR 30 POC Glucose Random Glucose 247 H Calcium 8.4 Iron 37 TIBC 320 % Saturation 12 L Unsat Iron Binding 283 Ferritin 150 B-Natriuretic Peptide Vitamin B12 Folate Urine Color Urine Appearance Urine pH Ur Specific [place] Urine Protein Urine Glucose (UA) Urine Ketones Urine Blood Urine Nitrite Ur Leukocyte Esterase Urine RBC Urine WBC Ur Squamous Epith Cells Urine Bacteria Hyaline Casts Ur Random Sodium Urine Creatinine 04/04/22 04/04/22 04/04/22 08:31 08:31 10:58 MCV MCH MCHC RDW Plt Count MPV Immature Gran % (Auto) Neut % (Auto) Lymph % (Auto) [place] % (Auto) Eos % (Auto) Baso % (Auto) Lymph # (Auto) [place] # (Auto) Eos # (Auto) Baso # (Auto) Abs Immat Gran (auto) Absolute Neuts (auto) Absolute Nucleated RBC Nucleated RBC % (auto) O2 Saturation ABG pH at Pt Temp ABG pCO2 at Pt Temp ABG pO2 at Pt Temp ABG HCO3 ABG Base Excess (Actual) Anion Gap Estim Creat Clear Calc Estimated GFR POC Glucose 200 H Random Glucose Calcium Iron TIBC % Saturation Unsat Iron Binding Ferritin B-Natriuretic Peptide 726 H Vitamin B12 292 Folate 8.8 Urine Color Urine Appearance Urine pH Ur Specific [place] Urine Protein Urine Glucose (UA) Urine Ketones Urine Blood Urine Nitrite Ur Leukocyte Esterase Urine RBC Urine WBC Ur Squamous Epith Cells Urine Bacteria Hyaline Casts Ur Random Sodium Urine Creatinine Assessment and Plan (1) DANIEL (obstructive sleep apnea): Status: Acute (2) Respiratory failure: Status: Acute (3) Morbid obesity: Status: Acute (4) NICM (nonischemic cardiomyopathy): Status: Acute (5) Acute respiratory failure with hypoxia and hypercapnia: Status: Acute Plan 61 year old female with history of 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 Acute on chronic respiratory failure with hypoxia and hypercarbia Likely multifactorial and secondary to DANIEL, obesity hypoventilation, COPD and CHF Acute on chronic HFrEF Recent admission to [facility]. Echo on 03/10 with grade 2 diastolic dysfunction with EF 25-35%. BNP trending up, will increase dose of lasix drip -Cardiology consult pending -follow Is&Os - good urine output since starting lasix -continue low na diet and fluid restriction -diamox bid -follow daily BMP Asthma/COPD with chronic respiratory failure on prn home O2 resume nocturnal cpap - not compliant here or at home - 2L NC at night - d/w respiratory trying CPAP with nasal pillow instead of mask, patient seems to be tolerating at this time Change to scheduled Duonebs -follow daily VBG FELICIA on CKD 3 Recently admitted to [facility] requiring temporary dialysis creatinine overall trending up ?cardiorenal - trending down slightly since being started on lasix -nephrology following - official note not yet available -sedating meds on hold (gabapentin being weaned) Depression/anxiety with agitation Patient with episodes of what she describes as severe anxiety/panic. still having shouting/anxiety episodes does not meet criteria for IP psych at this time however was deemed not competent to make her own decisions and healthcare proxy will be invoked which is her daughter -continue prozac, risperidal and prn clonidine Plan for transfer to short-term rehab when medically cleared Acute recurrent RLE cellulitis- intermittent recurrence ongoing since 2019. Tre[place] [facility] [place] unasyn recently H/o chronic venous stasis dermatitis Venous deplex negative for DVT. Xray R ankle neg for osseous abnormality including osteomyelitis initially treated with vanco, will transition to doxycycline seen by ID- may be more venous stasis she then cellulitis, recommend transition to p.o. doxycycline on discharge for 14 days and then PCN prophylaxis - outpatient follow up with ID keep leg elevated, use diallo wrap Hyperklemia. prn lokelma follow BMP Acute on chronic normocytic anemia H/H trending down, no evidence of acute blood loss iron studies,b12, folate ok Insulin dependent Type 2 diabetes Sliding scale, ADA diet, continue Lantus HTN- Continue amlodipine, isosorbide HLD Continue statin Diabetic neuropathy lyrica on hold to prevent sedation in the setting of worsening renal function gabapentin being weaned to prevent sedation Morbid obesity BMI 55.8 Discussed importance of weight management as this may be contributing to worsening of other comorbidities DVT prophylaxis- lovejessicax Attending Dr. Rogers Full code patient requires ongoing inpatient hospitalization due to treatment of right lower extremity cellulitis, eval for anxiety, seen and evaluated by psychiatric team deemed to not have capacity to make her own decisions, healthcare proxy invoked. Pending safe discharge to short-term rehab. now requiring management of respiratory failure, chf Quality Stroke Does the patient have a stroke diagnosis?: No VTE Prior VTE?: No VTE Risk Level:: Medical - moderate - high VTE Device Contraindication: Treatment Not Indicated VTE Drug Contraindication: N/A - Med Ordered
[2022-04-04] MEDS: acetaZOLAMIDE 250 MG TABLET PO ×2 (13:23→21:11)
--- NOTE | 2022-04-04 13:39 | PM.PNNEP ---
Subjective Subjective Date of Service: 04/04/22 Interval history: seen and examined this morning follow up for FELICIA Sleepy Physical Exam Vital Signs: Vital Signs: Last Vital Signs Temp 98.1 F 04/04/22 11:53 Pulse 89 04/04/22 11:53 Resp 20 04/04/22 11:53 BP 122/56 L 04/04/22 11:53 Pulse Ox 93 04/04/22 11:53 O2 Del Method 04/04/22 11:53 O2 Flow Rate 3.5 04/04/22 11:53 BMI result Body Mass Index 55.8 Const: Other: difficult to arouse, but once awake, alert and talking General: comfortable and no acute distress Nutritional Appearance: obese Resp: Other: diminished Effort & Inspection: no respiratory distress and no use of accessory muscles Cardio: Rate: regular rate Heart sounds: S1 normal heart sound present and S2 normal heart sound present GI: Inspection: No distended and Yes obesity Palpation (GI): Soft to palpation and nontender Extrem: Other: leg swelling improving; b/l UE edema improving Objective Data Labs CBC & Chem 7: 04/04/22 08:31 04/04/22 08:31 Labs: Laboratory Results - last 24 hr 04/03/22 04/03/22 04/04/22 15:14 19:08 03:03 WBC RBC Hgb Hct MCV MCH MCHC RDW Plt Count MPV Immature Gran % (Auto) Neut % (Auto) Lymph % (Auto) [place] % (Auto) Eos % (Auto) Baso % (Auto) Lymph # (Auto) [place] # (Auto) Eos # (Auto) Baso # (Auto) Abs Immat Gran (auto) Absolute Neuts (auto) Absolute Nucleated RBC Nucleated RBC % (auto) O2 Saturation ABG pH at Pt Temp ABG pCO2 at Pt Temp ABG pO2 at Pt Temp ABG HCO3 ABG Base Excess (Actual) Sodium Potassium Chloride Carbon Dioxide Anion Gap BUN Creatinine Estim Creat Clear Calc Estimated GFR POC Glucose 162 H 181 H Random Glucose Calcium Iron TIBC % Saturation Unsat Iron Binding Ferritin B-Natriuretic Peptide Vitamin B12 Folate Urine Color Yellow Urine Appearance Clear Urine pH 5.0 Ur Specific [place] 1.010 Urine Protein Negative Urine Glucose (UA) Negative Urine Ketones Negative Urine Blood Small (1+) H Urine Nitrite Negative Ur Leukocyte Esterase Negative Urine RBC 3-5 H Urine WBC 0-5 Ur Squamous Epith Cells 0-2 Urine Bacteria None Seen Hyaline Casts 11-20 Ur Random Sodium Urine Creatinine 04/04/22 04/04/22 04/04/22 03:04 06:19 07:28 WBC RBC Hgb Hct MCV MCH MCHC RDW Plt Count MPV Immature Gran % (Auto) Neut % (Auto) Lymph % (Auto) [place] % (Auto) Eos % (Auto) Baso % (Auto) Lymph # (Auto) [place] # (Auto) Eos # (Auto) Baso # (Auto) Abs Immat Gran (auto) Absolute Neuts (auto) Absolute Nucleated RBC Nucleated RBC % (auto) O2 Saturation ABG pH at Pt Temp ABG pCO2 at Pt Temp ABG pO2 at Pt Temp ABG HCO3 ABG Base Excess (Actual) Sodium 143 Potassium 5.3 H Chloride 107 Carbon Dioxide 26 Anion Gap 15 BUN 87 H Creatinine 1.80 H Estim Creat Clear Calc 44.8 Estimated GFR 29 POC Glucose 207 H Random Glucose 247 H Calcium 8.3 L Iron TIBC % Saturation Unsat Iron Binding Ferritin B-Natriuretic Peptide Vitamin B12 Folate Urine Color Urine Appearance Urine pH Ur Specific [place] Urine Protein Urine Glucose (UA) Urine Ketones Urine Blood Urine Nitrite Ur Leukocyte Esterase Urine RBC Urine WBC Ur Squamous Epith Cells Urine Bacteria Hyaline Casts Ur Random Sodium 79.0 Urine Creatinine 46.06 04/04/22 04/04/22 04/04/22 08:08 08:31 08:31 WBC 5.1 RBC 3.02 L Hgb 8.1 L Hct 28.3 L MCV 93.7 MCH 26.8 L MCHC 28.6 L RDW 17.8 H Plt Count 129 L MPV 10.3 Immature Gran % (Auto) 1.0 H Neut % (Auto) 75.2 H Lymph % (Auto) 10.8 L [place] % (Auto) 10.4 Eos % (Auto) 2.4 Baso % (Auto) 0.2 Lymph # (Auto) 0.6 L [place] # (Auto) 0.5 Eos # (Auto) 0.1 Baso # (Auto) 0.0 Abs Immat Gran (auto) 0.05 H Absolute Neuts (auto) 3.8 Absolute Nucleated RBC 0.060 H Nucleated RBC % (auto) 1.2 H O2 Saturation 85.0 ABG pH at Pt Temp 7.27 L ABG pCO2 at Pt Temp 68 H* ABG pO2 at Pt Temp 62 L ABG HCO3 31 H ABG Base Excess (Actual) 3.8 Sodium 144 Potassium 5.3 H Chloride 108 Carbon Dioxide 26 Anion Gap 15 BUN 88 H Creatinine 1.75 H Estim Creat Clear Calc 46.1 Estimated GFR 30 POC Glucose Random Glucose 247 H Calcium 8.4 Iron 37 TIBC 320 % Saturation 12 L Unsat Iron Binding 283 Ferritin 150 B-Natriuretic Peptide Vitamin B12 Folate Urine Color Urine Appearance Urine pH Ur Specific [place] Urine Protein Urine Glucose (UA) Urine Ketones Urine Blood Urine Nitrite Ur Leukocyte Esterase Urine RBC Urine WBC Ur Squamous Epith Cells Urine Bacteria Hyaline Casts Ur Random Sodium Urine Creatinine 04/04/22 04/04/22 04/04/22 08:31 08:31 10:58 WBC RBC Hgb Hct MCV MCH MCHC RDW Plt Count MPV Immature Gran % (Auto) Neut % (Auto) Lymph % (Auto) [place] % (Auto) Eos % (Auto) Baso % (Auto) Lymph # (Auto) [place] # (Auto) Eos # (Auto) Baso # (Auto) Abs Immat Gran (auto) Absolute Neuts (auto) Absolute Nucleated RBC Nucleated RBC % (auto) O2 Saturation ABG pH at Pt Temp ABG pCO2 at Pt Temp ABG pO2 at Pt Temp ABG HCO3 ABG Base Excess (Actual) Sodium Potassium Chloride Carbon Dioxide Anion Gap BUN Creatinine Estim Creat Clear Calc Estimated GFR POC Glucose 200 H Random Glucose Calcium Iron TIBC % Saturation Unsat Iron Binding Ferritin B-Natriuretic Peptide 726 H Vitamin B12 292 Folate 8.8 Urine Color Urine Appearance Urine pH Ur Specific [place] Urine Protein Urine Glucose (UA) Urine Ketones Urine Blood Urine Nitrite Ur Leukocyte Esterase Urine RBC Urine WBC Ur Squamous Epith Cells Urine Bacteria Hyaline Casts Ur Random Sodium Urine Creatinine Procedures Date of Service Date of Service: 04/04/22 Assessment & Plan Assessment and plan (1) FELICIA (acute kidney injury): Status: Acute (2) Respiratory failure: Status: Acute (3) Acute on chronic combined systolic and diastolic CHF (congestive heart failure): Status: Acute Assessment and Plan: -61 year old female with FELICIA - Renal hypoperfusion in the setting of CHF -Baseline CKD 3 (Recently admitted to [facility] requiring temporary dialysis) -Acute on chronic respiratory failure with hypoxia and hypercarbia Likely multifactorial and secondary to DANIEL, obesity hypoventilation, COPD and CHF -Acute on chronic HFrEF Echo on 03/10 with grade 2 diastolic dysfunction with EF 25-35%. -Asthma/COPD with chronic respiratory failure on prn home O2 Na restriction Fluid restriction d/w medical team - Agree with ncreasing lasix drip Diamox Avoid nephrotoxins F/u K - Last K acceptable - PRN Lolkelma RE - normocytic anemia-iron studies- Low % sat - Fe and Epo deficiency- Venofer 100 mg ordered If tolerating will give more doses Thx Will follow Time Spent With Patient Time: Total time spent is greater than 50% in coordination of care (as documented) at patient's floor/unit and/or counseling patient: Progress Note: Quality Stroke Does the patient have a stroke diagnosis?: No
--- NOTE | 2022-04-04 13:43 | CONS_ITS ---
DATE OF SERVICE: 04/04/2022 REASON FOR CONSULTATION: I was asked to see the patient to assist in evaluation and management of patient's acute kidney injury as reflected by BUN and creatinine today of 86 and 1.83 or as her serum creatinine on admission is 1.3. I do see that she has had episodes of acute kidney injury in the past back in May. She had a creatinine as high as 3.0. HISTORY OF PRESENT ILLNESS: In summary, patient is a 61-year-old female with the history of diabetes, poorly controlled with peripheral vascular disease, neuropathy, chronic venous stasis dermatitis, asthma, on home O2, not ischemic cardiomyopathy, hypertension, hyperlipidemia, morbid obesity, who was admitted to the hospital with right leg swelling and redness, which apparently has been on and off problem for the past year. There is mention made that she was at [facility] with the similar episode. Details are a bit unclear. She had an episode of hyperkalemia and apparently required dialysis. She only received 2 dialysis treatments and then came off dialysis. The patient describes right leg pain. She had an ultrasound of the right leg, which ruled out DVT. On admission, she was noted to have some pulmonary congestion and was given some increased dose of diuretics. Her hospital course here is notable for developing worsening anemia with her hemoglobin going down from 9.6 on admission today to 8.5. The acute kidney injury with a creatinine 1.3 on admission now to 1.8 along with hyperkalemia with a potassium 5.5 today and worsening BUN increasing from 16 on admission now to 86, as noted on increasing doses of diuretics and now on a diuretic Lasix drip. Her I's and O's are a bit unclear but does not look like she has had a great diuresis since being admitted. Her past medical history is as mentioned above. MEDICATIONS: Medications on admission are noted in the admitting notes. Her current medications are noted in the MAR. ALLERGIES: STATED IN THE ELECTRONIC MEDICAL RECORD. FAMILY HISTORY: Notable for diabetes and hypertension. SOCIAL HISTORY: There is mention made that she is a smoker. Denies alcohol or illicit drug use. Denies using NSAIDs. REVIEW OF SYSTEMS: As noted above. PHYSICAL EXAMINATION: VITAL SIGNS: Blood pressure 130/80 with the heart rate in the 90s. HEAD: Atraumatic and normocephalic. NECK: Supple. Mucous membranes are moist. LUNGS: Breath sounds bilaterally. CARDIAC: Regular rate and rhythm. ABDOMEN: Obese, soft. EXTREMITIES: Show 2+ edema. Right leg is more swollen than the left with some redness. LABORATORY DATA: Labs from today show hemoglobin 8.5, hematocrit 30.2, white blood cell count 6.2, platelet count 126. Sodium 141, potassium 5.5, chloride 107, bicarb 25, BUN 86, creatinine 1.8, calcium 8.2, BNP level was 595. As mentioned, her creatinine was 1.3 on admission. BUN was 16 on admission. Her albumin was 3.7 on admission. There is no urinalysis or urine studies on admission. Last ones were back in May when her protein was 1+ and urine albumin creatinine ratio was only 103 mg of creatinine. Her BNP level has been 450 to 600 range. She had a chest x-ray was suggestive of congestive heart failure. I do not see a recent cardiac echo. IMPRESSION: 61-YEAR-OLD OBESE, DIABETIC, RECURRENT HOSPITALIZATIONS WITH CELLULITIS AND FLUID OVERLOAD, HISTORY OF RECURRENT ACUTE KIDNEY INJURY, NOW ADMITTED WITH AGAIN FLUID OVERLOAD, QUESTION OF CELLULITIS AND ACUTE KIDNEY INJURY ALONG WITH HYPERKALEMIA. 1. Acute kidney injury. Based on her labs with a high BUN to creatinine ratio does suggest that she has renal hypoperfusion as a cause of acute kidney injury. Her blood pressures have been borderline low but no hypotensive episodes. Nonetheless, she has been getting diuretics and again because of the high BUN and creatinine ratio, this is concerning for renal hypoperfusion and a prerenal azotemic state. Other possibilities, such as acute interstitial nephritis, acute glomerulonephritis be ruled out with urine studies and depending on the urine studies, serologic studies may be needed. 2. Acute obstruction seems unlikely but we will withhold with the imaging study of the kidneys. 3. Hyperkalemia. This seems to be a repetitive problem. I suspect this is due to her acute kidney injury. She may have a component of incomplete type 4 RTA as her bicarb is in the normal range but may have decreased urinary potassium excretion capabilities. She is getting Lokelma to control potassium and low-potassium diet. 4. Increased BUN to creatinine ratio. Differential cause this would now include prerenal azotemia but also upper gastrointestinal bleed. She has had a drop in hemoglobin, so need to guaiac her stools. Steroids can also cause increased BUN and creatinine, but she is not currently on them. 5. Hypervolemia. She clearly is fluid overloaded. In the past, she has not had heavy proteinuria, so nephrotic syndrome seems unlikely, but we will rule this out anyways. Her BNP level is not markedly elevated, but nonetheless that suggests cardiac as a cause for her hypervolemia and relative diuretic resistance. Liver dysfunction would also be a consideration and we will check LFTs, although they were checked on admission were normal. 6. Anemia. We will check iron studies. She may be EPO candidate. Check guaiac of her stools to rule out gastrointestinal bleed that can cause the high BUN to creatinine ratio as well as the drop in hemoglobin. SUGGESTIONS: At this time include blood count 10 g now. Continue to track renal function, potassium level. Urinalysis. Spot urine for protein, creatinine, and sodium. Ultrasound of the kidneys. We will obtain a cardiac echo. We will check some serologies given recent cellulitis on C3 and C4. Further evaluation depending on clinical course. MD PRANAY Hutson/CLEMENTE / [id number]
--- NOTE | 2022-04-04 15:24 | P.CONCA_ITS ---
History of Present Illness History of Present Illness Date of Service: 04/04/22 Requesting physician: Bernadette Tucker Consult reason: congestive heart failure Chief complaint: RLE pain Narrative: I was requested to see Shahla in cardiology consultation today because of worsening BNP as well as worsening kidney function in the setting of multiple comorbidities including morbid obesity, obesity hypoventilation syndrome, obstructive sleep apnea, cardiomyopathy which is reported as nonischemic, chronic anemia, chronic kidney disease with worsening kidney function and psychosocial issues with COPD/asthma. Patient present hospital for few days ago with swelling and pain in the right lower extremity suspected to be cellulitis and was admitted and subsequently as per the chart noticed to have worsening BNP and worsening shortness of breath and respiratory failure. History is difficult to obtain from the patient and try to obtain kind of her comprehensive prick chair from the chart. Patient has been seen by multiple consultants including Nephrology and Pulmonary. Will also seen by critical care team today because of altered mental status and noted to have some acidosis is suspected to be due to acute hypercarbia compared to a baseline. This has not resolved. On questioning patient denies any shortness of breath. However given her worsening parameters she has been started on increase Lasix drip. She denies any shortn ess of breath. She denies any chest pain or palpitations. Review of Systems Review of Systems: Yes Unobtainable due to mental status PMFSH Past Medical History Medical History Acute on chronic combined systolic and diastolic CHF (congestive heart failure) Asthma Cellulitis of right lower extremity Chronic pain CKD (chronic kidney disease) stage 3, GFR 30-59 ml/min Congestive heart failure Depression Diabetes Diabetic neuropathy, painful High cholesterol Hypertension Morbid obesity NICM (nonischemic cardiomyopathy) Obesity hypoventilation syndrome DANIEL (obstructive sleep apnea) Family History Family History Mother HTN (hypertension) Diabetes CAD (coronary artery disease) Father HTN (hypertension) Diabetes CAD (coronary artery disease) Maternal Grandmother CAD (coronary artery disease) Family history: reviewed and not pertinent Surgical History Surgical History Hx of cholecystectomy Social History Social History Household Members: None Household Members Other:: GRANDSON Housing: Apartment Housing Other:: [facility] Do you presently have visiting nurse or other home services: Yes Alcohol intake: never Patient Tobacco Use Status: Former Tobacco user Tobacco use type: Cigarette Years Smoked: 38 Second Hand Smoke Exposure: No Use of substances other than those prescribed or required for medical reasons: No Substance Use Type: Marijuana Currently Displaying Signs/Symptoms of Drug Intoxication Withdrawal: No Have you been hit, kicked, punched, or otherwise hurt by someone within the past year? If so, by whom?: No Do you feel safe in your current relationship?: No Current Relationship Is there a partner from a previous relationship who is making you feel unsafe now?: No Are you made to feel afraid or neglected: No Advance Directives: Yes Advance Directives on File: Yes Advance Directives Date on File: 12/19/20 Do you have thoughts of harming others: None Do you have a plan to hurt others: No Plan Recently lost weight without trying: No Nutrition Risks: No Nutritional Risk Patient : No : No Poor oral hygiene: No service: No Current occupational status: disabled Meds Allergies Allergy/AdvReac Type Severity Reaction Status Date / Time acetaminophen [Tylenol] Allergy Intermediate vomiting, Verified 04/04/22 10:52 itching, hives ibuprofen Allergy Intermediate vommiting, Verified 04/04/22 10:51 itching morphine AdvReac Intermediate vomiting Verified 04/04/22 10:51 Active Medications: Current Medications Acetaminophen (Acetaminophen 325 Mg Tablet) 650 mg PO Q6H PRN PRN Reason: Pain, Mild (Pain Scale 1-3) Last Admin: 03/30/22 07:32 Dose: 650 mg Acetazolamide (Acetazolamide 250 Mg Tablet) 250 mg PO BID [facility] Last Admin: 04/04/22 13:23 Dose: 250 mg Albuterol/Ipratropium (Albuterol/Iprat 2.5/0.5mg 3 Ml Ampul.Neb) 3 ml INHALE RQ6H [facility] Last Admin: 04/04/22 11:34 Dose: 3 ml Amlodipine Besylate (Amlodipine Besylate 10 Mg Tablet) 10 mg PO DAILY [facility]; Protocol Last Admin: 04/04/22 08:35 Dose: 10 mg Aspirin (Aspirin Enteric Coated 81 Mg Tablet.) 81 mg PO DAILY [facility] Last Admin: 04/04/22 08:36 Dose: 81 mg Atorvastatin Calcium (Atorvastatin Calcium 10 Mg Tablet) 10 mg PO BEDTIME [facility] Last Admin: 04/03/22 20:23 Dose: 10 mg Clonidine HCl (Clonidine Hcl 0.1 Mg Tablet) 0.1 mg PO TID PRN; Protocol PRN Reason: hyperarousal, anxiety, panic Last Admin: 04/04/22 04:01 Dose: 0.1 mg Doxycycline Hyclate (Doxycycline Hyclate 100 Mg Tablet) 100 mg PO Q12H [facility] Last Admin: 04/04/22 05:41 Dose: 100 mg Enoxaparin Sodium (Enoxaparin Sodium 40 Mg/0.4 Ml Syringe) 40 mg SUBCUT Q24H S Last Admin: 04/04/22 08:37 Dose: 40 mg Fluoxetine HCl (Fluoxetine Hcl 20 Mg Capsule) 40 mg PO DAILY [facility] Last Admin: 04/04/22 08:35 Dose: 40 mg Fluticasone Propionate (Fluticasone Propionate 100 Mcg Blst.W.Dev) 2 puff INHALE RBID [facility] Last Admin: 04/04/22 08:17 Dose: 2 puff Gabapentin (Gabapentin 400 Mg Capsule) 800 mg PO BEDTIME [facility] Last Admin: 04/02/22 20:25 Dose: 800 mg Gabapentin (Gabapentin 100 Mg Capsule) 200 mg PO BID@0900,1200 [facility] Last Admin: 04/04/22 12:06 Dose: 200 mg Furosemide 200 mg/ Sodium (Chloride) 100 mls @ 5 mls/hr IVCONT .Q20H [facility] Last Admin: 04/03/22 16:58 Dose: 5 mg/hr, 2.5 mls/hr Insulin Glargine (Insulin Glargine,Hum.Rec.Anlog 100 Unit/Ml 10 Ml Vial) 50 unit SUBCUT BEDTIME [facility] Last Admin: 04/03/22 20:23 Dose: 50 unit Insulin Human Lispro (Insulin Lispro 100 Unit/Ml 3 Ml Vial) 0 unit SUBCUT QIDACHS [facility]; Protocol Last Admin: 04/04/22 12:06 Dose: 2 unit Isosorbide Mononitrate (Isosorbide Mononitrate 30 Mg Tab.Er.24h) 30 mg PO DAILY [facility]; Protocol Last Admin: 04/04/22 08:35 Dose: 30 mg Meclizine HCl (Meclizine Hcl 25 Mg Tablet) 25 mg PO TID PRN PRN Reason: Dizziness Last Admin: 04/01/22 16:09 Dose: 25 mg Metoprolol Succinate (Metoprolol Succinate Er 50 Mg Tab.Er.24h) 50 mg PO DAILY [facility]; Protocol Last Admin: 04/04/22 08:37 Dose: 50 mg Nystatin (Nystatin Powder 15 Gm Bottle) 1 appl TOPICAL BID [facility]; Protocol Last Admin: 04/04/22 08:38 Dose: 1 appl Omeprazole (Omeprazole 20 Mg Capsule.Dr) 20 mg PO BEDTIME [facility] Last Admin: 04/03/22 20:23 Dose: 20 mg Pharmacy Consult (Consult Rx Perform Med Rec) 1 each MISCELLANE ONCE PRN PRN Reason: Consult order Pharmacy Consult (Consult Rx Vancomycin Dosing) 1 each MISCELLANE DAILY PRN PRN Reason: Consult order Polyethylene Glycol (Polyethylene Glycol 3350 17 Gm Powd.Pack) 17 gm PO DAILY PRN PRN Reason: constipation Pregabalin (Pregabalin 100 Mg Capsule) 100 mg PO BID [facility] Last Admin: 04/03/22 09:26 Dose: 100 mg Risperidone (Risperidone 0.5 Mg Tablet) 0.5 mg PO BID [facility] Last Admin: 04/04/22 08:36 Dose: 0.5 mg Sodium Chloride (0.9 % Sodium Chloride Flush 3 Ml Syringe) 3 ml IVFLUSH QSHIFT [facility] Last Admin: 04/04/22 08:38 Dose: 3 ml Tizanidine HCl (Tizanidine Hcl 4 Mg Tablet) 4 mg PO DAILY@1600 [facility] Last Admin: 04/03/22 17:00 Dose: Not Given Vitamin D (Cholecalciferol (Vitamin D3) 25 Mcg Tablet) 25 mcg PO DAILY [facility] Last Admin: 04/04/22 08:36 Dose: 25 mcg Home Medications Medication Instructions Recorded Confirmed Last Taken Type albuterol sulfate 90 mcg/actuation 2 puff inhalation Q4H PRN Dyspnea 11/23/20 03/26/22 1 Day Ago History aerosol inhaler (ProAir HFA) ~03/31/21 aspirin 81 mg tablet,delayed 81 mg PO DAILY 11/23/20 03/26/22 1 Day Ago History release ~03/31/21 fluoxetine 40 mg capsule 40 mg PO DAILY 11/23/20 03/26/22 1 Day Ago History ~03/31/21 fluticasone propionate 110 2 puff inhalation BID 11/23/20 03/26/22 1 Day Ago History mcg/actuation HFA aerosol inhaler ~03/31/21 (Flovent HFA) metoprolol succinate 50 mg 50 mg PO DAILY 11/23/20 03/26/22 1 Day Ago History tablet,extended release 24 hr ~03/31/21 omeprazole 20 mg capsule,delayed 20 mg PO BEDTIME 11/23/20 03/26/22 1 Day Ago History release ~03/31/21 simvastatin 20 mg tablet 20 mg PO BEDTIME 11/23/20 03/26/22 1 Day Ago History ~03/31/21 isosorbide mononitrate 30 mg 30 mg PO DAILY 12/11/20 03/26/22 1 Day Ago History tablet,extended release 24 hr ~03/31/21 tizanidine 4 mg tablet 4 mg PO BEDTIME 12/11/20 03/26/22 1 Day Ago History ~03/31/21 gabapentin 400 mg capsule 400 mg PO BID@0900,1200 01/09/21 03/26/22 1 Day Ago History ~03/31/21 amlodipine 10 mg tablet 1 tab PO DAILY 06/07/21 03/26/22 Unknown History bumetanide 2 mg tablet 1 tab PO DAILY 06/07/21 03/26/22 Unknown History cholecalciferol (vitamin D3) 25 1 cap PO DAILY 06/07/21 03/26/22 Unknown History mcg (1,000 unit) capsule gabapentin 400 mg capsule 800 mg PO BEDTIME 06/07/21 03/26/22 Unknown History insulin glargine 100 unit/mL 80 unit subcut BEDTIME 06/07/21 03/26/22 Unknown History subcutaneous solution (Lantus U-100 Insulin) meclizine 25 mg tablet 25 mg PO TID PRN Dizziness 06/07/21 03/26/22 Unknown History pregabalin 100 mg capsule 1 cap PO BID 06/08/21 03/26/22 Unknown History furosemide 20 mg tablet 1 tab PO DAILY 03/26/22 03/26/22 Unknown History haloperidol 2 mg tablet 1 tab PO BEDTIME 03/26/22 03/26/22 Unknown History Physical Exam Vital Signs: Vital Signs: Last Vital Signs Temp 98.3 F 04/04/22 15:00 Pulse 94 04/04/22 15:00 Resp 20 04/04/22 15:00 BP 124/58 L 04/04/22 15:00 Pulse Ox 93 04/04/22 15:00 O2 Del Method 04/04/22 15:00 O2 Flow Rate 4 04/04/22 15:00 BMI result Body Mass Index 55.8 Const: General: cooperative, comfortable, no acute distress, alert and awake Nutritional Appearance: obese morbidly obese Orientation/consciousness: patient oriented x3 HEENT: Head: Yes normocephalic and Yes atraumatic Neck: Neck: Yes trachea midline and Yes other (Cannot accurately evaluate JVD) Resp: Effort & Inspection: decreased respiratory effort Auscultation: no rales and no wheezes Cardio: Palpation: normal PMI Rate: regular rate Rhythm: regular rhythm Heart sounds: S1 normal heart sound present, S2 normal heart sound present, no click, no gallops and Murmur heart sound present systolic GI: Inspection: Yes Abdominal panniculus present Auscultation: normal bowel sounds Skin: General skin exam: no rashes or lesions noted Neuro: General: patient oriented x3 Extrem: General: No clubbing, No cyanosis and Yes edema Objective Labs and Meds Result diagrams: 04/04/22 08:31 04/04/22 08:31 Lab results: Laboratory Results - last 24 hr 04/03/22 04/03/22 04/04/22 15:14 19:08 03:03 WBC RBC Hgb Hct MCV MCH MCHC RDW Plt Count MPV Immature Gran % (Auto) Neut % (Auto) Lymph % (Auto) [place] % (Auto) Eos % (Auto) Baso % (Auto) Lymph # (Auto) [place] # (Auto) Eos # (Auto) Baso # (Auto) Abs Immat Gran (auto) Absolute Neuts (auto) Absolute Nucleated RBC Nucleated RBC % (auto) O2 Saturation ABG pH at Pt Temp ABG pCO2 at Pt Temp ABG pO2 at Pt Temp ABG HCO3 ABG Base Excess (Actual) Sodium Potassium Chloride Carbon Dioxide Anion Gap BUN Creatinine Estim Creat Clear Calc Estimated GFR POC Glucose 162 H 181 H Random Glucose Calcium Iron TIBC % Saturation Unsat Iron Binding Ferritin B-Natriuretic Peptide Vitamin B12 Folate Urine Color Yellow Urine Appearance Clear Urine pH 5.0 Ur Specific [place] 1.010 Urine Protein Negative Urine Glucose (UA) Negative Urine Ketones Negative Urine Blood Small (1+) H Urine Nitrite Negative Ur Leukocyte Esterase Negative Urine RBC 3-5 H Urine WBC 0-5 Ur Squamous Epith Cells 0-2 Urine Bacteria None Seen Hyaline Casts 11-20 Ur Random Sodium Urine Creatinine 04/04/22 04/04/22 04/04/22 03:04 06:19 07:28 WBC RBC Hgb Hct MCV MCH MCHC RDW Plt Count MPV Immature Gran % (Auto) Neut % (Auto) Lymph % (Auto) [place] % (Auto) Eos % (Auto) Baso % (Auto) Lymph # (Auto) [place] # (Auto) Eos # (Auto) Baso # (Auto) Abs Immat Gran (auto) Absolute Neuts (auto) Absolute Nucleated RBC Nucleated RBC % (auto) O2 Saturation ABG pH at Pt Temp ABG pCO2 at Pt Temp ABG pO2 at Pt Temp ABG HCO3 ABG Base Excess (Actual) Sodium 143 Potassium 5.3 H Chloride 107 Carbon Dioxide 26 Anion Gap 15 BUN 87 H Creatinine 1.80 H Estim Creat Clear Calc 44.8 Estimated GFR 29 POC Glucose 207 H Random Glucose 247 H Calcium 8.3 L Iron TIBC % Saturation Unsat Iron Binding Ferritin B-Natriuretic Peptide Vitamin B12 Folate Urine Color Urine Appearance Urine pH Ur Specific [place] Urine Protein Urine Glucose (UA) Urine Ketones Urine Blood Urine Nitrite Ur Leukocyte Esterase Urine RBC Urine WBC Ur Squamous Epith Cells Urine Bacteria Hyaline Casts Ur Random Sodium 79.0 Urine Creatinine 46.06 04/04/22 04/04/22 04/04/22 08:08 08:31 08:31 WBC 5.1 RBC 3.02 L Hgb 8.1 L Hct 28.3 L MCV 93.7 MCH 26.8 L MCHC 28.6 L RDW 17.8 H Plt Count 129 L MPV 10.3 Immature Gran % (Auto) 1.0 H Neut % (Auto) 75.2 H Lymph % (Auto) 10.8 L [place] % (Auto) 10.4 Eos % (Auto) 2.4 Baso % (Auto) 0.2 Lymph # (Auto) 0.6 L [place] # (Auto) 0.5 Eos # (Auto) 0.1 Baso # (Auto) 0.0 Abs Immat Gran (auto) 0.05 H Absolute Neuts (auto) 3.8 Absolute Nucleated RBC 0.060 H Nucleated RBC % (auto) 1.2 H O2 Saturation 85.0 ABG pH at Pt Temp 7.27 L ABG pCO2 at Pt Temp 68 H* ABG pO2 at Pt Temp 62 L ABG HCO3 31 H ABG Base Excess (Actual) 3.8 Sodium 144 Potassium 5.3 H Chloride 108 Carbon Dioxide 26 Anion Gap 15 BUN 88 H Creatinine 1.75 H Estim Creat Clear Calc 46.1 Estimated GFR 30 POC Glucose Random Glucose 247 H Calcium 8.4 Iron 37 TIBC 320 % Saturation 12 L Unsat Iron Binding 283 Ferritin 150 B-Natriuretic Peptide Vitamin B12 Folate Urine Color Urine Appearance Urine pH Ur Specific [place] Urine Protein Urine Glucose (UA) Urine Ketones Urine Blood Urine Nitrite Ur Leukocyte Esterase Urine RBC Urine WBC Ur Squamous Epith Cells Urine Bacteria Hyaline Casts Ur Random Sodium Urine Creatinine 04/04/22 04/04/22 04/04/22 08:31 08:31 10:58 WBC RBC Hgb Hct MCV MCH MCHC RDW Plt Count MPV Immature Gran % (Auto) Neut % (Auto) Lymph % (Auto) [place] % (Auto) Eos % (Auto) Baso % (Auto) Lymph # (Auto) [place] # (Auto) Eos # (Auto) Baso # (Auto) Abs Immat Gran (auto) Absolute Neuts (auto) Absolute Nucleated RBC Nucleated RBC % (auto) O2 Saturation ABG pH at Pt Temp ABG pCO2 at Pt Temp ABG pO2 at Pt Temp ABG HCO3 ABG Base Excess (Actual) Sodium Potassium Chloride Carbon Dioxide Anion Gap BUN Creatinine Estim Creat Clear Calc Estimated GFR POC Glucose 200 H Random Glucose Calcium Iron TIBC % Saturation Unsat Iron Binding Ferritin B-Natriuretic Peptide 726 H Vitamin B12 292 Folate 8.8 Urine Color Urine Appearance Urine pH Ur Specific [place] Urine Protein Urine Glucose (UA) Urine Ketones Urine Blood Urine Nitrite Ur Leukocyte Esterase Urine RBC Urine WBC Ur Squamous Epith Cells Urine Bacteria Hyaline Casts Ur Random Sodium Urine Creatinine Assessment and Plan (1) Respiratory failure: Status: Acute Respiratory failure in this middle-aged woman with multiple comorbidities including presence of LV systolic dysfunction, reported echo from [facility] showing worsening LV systolic function compared to prior echocardiogram from her e with evidence of fluid overload only noted by significant leg edema. Her parameters of elevated BNP and worsening renal function suggestive cardiorenal syndrome. She has other comorbidities including psychosocial factors, morbid obesity with obesity hypoventilation with sleep apnea as well as anemia and chronic kidney disease. Overall prognosis is guarded. At this point time from cardiac perspective I agree with increasing Lasix drip and pursuing close follow-up of renal function as well as monitoring BNP to assess fluid status. Very difficult otherwise assess central venous congestion in this patient. In the long run may benefit with CardioMEMS device. For now continue strict intake and output chart. Follow electrolytes and replace as needed. Currently noted mildly hyperkalemic and treat as per renal recommendations. Agree with aggressive blood pressure control and consider switching amlodipine to hydralazine for afterload reduction. Continue isosorbide therapy. Continue metoprolol therapy for neurohormonal modulation. Can add Jardiance 10 mg and follow renal function closely. Will hold off on adding Aldactone given her renal dysfunction and hyperkalemia. Will sign of the case at this point time. Thank you for allowing me to partake in the care Procedures Date of Service Date of Service: 04/04/22
[2022-04-04 15:35] LABS: Glucose, Whole Blood 196 mg/dL (60-115)
[2022-04-04] MEDS: Iron Sucrose Complex 100 MG in 0.9 % Sodium Chloride 50 ML 220 MG IV (16:14)
[2022-04-04] MEDS: TiZANidine HCL 4 MG TABLET PO (16:28)
[2022-04-04] MEDS: Furosemide 200 MG in 0.9 % Sodium Chloride 80 ML IVCONT (19:27)
[2022-04-04 19:51] LABS: Glucose, Whole Blood 205 mg/dL (60-115)
[2022-04-04] MEDS: Omeprazole 20 MG CAPSULE.DR PO (21:11)
[2022-04-04] MEDS: Atorvastatin Calcium 10 MG TABLET PO (21:11)
[2022-04-04] MEDS: Insulin Glargine,Hum.rec.anlog 100 UNIT/ML 10 ML VIAL 50 UNIT SUBCUT (21:16)
--- NOTE | 2022-04-04 22:44 | PM.PSYCN ---
History of Present Illness Date of Service: 04/04/2022 Chief Complaint: RLE pain Reason for Consult: medication Requesting physician: Bernadette Tucker Discussed with referring provider: Yes Sources of Information: patient interviewed and chart reviewed HPI Narrative: I spoke with pt's team, she has continued to yell out bizarre statements. She is a 3 person assist, as she cant bear her weight, and is dependent on staff. She is continuing to respond to VH. As of recent respiratory consult, she is now wearing her CPAP because they changed it to a face mask and she is tolerating this better. Per her 1:1 sitter, pt is asking for the baby, where?s the baby, when asked who she is referring to, she says I dont know, there?s a baby in here. Earlier in the day, pt was awake, actually trying to get off the bed, disoriented but was redirectable, then after dinner she started dosing off while on the phone with her daughter. Pt is now sleeping, respiratory came and put her cpap on after dinner.? I spoke with pt's daughter, she says her mom just started with the hallucinations again, Says night was horrible, she got 21 missed calls from her mom telling her that she didnt know where she was and asked if this is the room where i get chopped up. She thinks everyone is out to get her, mistrustful of staff, thought they were talking about her negatively.? Past Psychiatric History: Denies formal hx of psych treatment, has been on fluoxetine 40 mg for many years from her PCP to treat depression with adequate success. [facility] Medical History Acute on chronic combined systolic and diastolic CHF (congestive heart failure) Asthma Cellulitis of right lower extremity Chronic pain CKD (chronic kidney disease) stage 3, GFR 30-59 ml/min Congestive heart failure Depression Diabetes Diabetic neuropathy, painful High cholesterol Hypertension Morbid obesity NICM (nonischemic cardiomyopathy) Obesity hypoventilation syndrome DANIEL (obstructive sleep apnea) Surgical History Hx of cholecystectomy Diagnostics Vital Signs (24Hr): Vital Signs - 24 hr 04/03/22 23:14 04/04/22 03:51 04/04/22 07:29 Temperature 98.2 F 98.0 F 97.0 F Pulse Rate 94 89 81 Respiratory Rate 20 19 24 H Blood Pressure 129/77 134/61 137/53 L Pulse Oximetry 92 93 93 Oxygen Delivery Method Nasal Cannula Nasal Cannula Nasal Cannula Oxygen Flow Rate 4 4 4.5 04/04/22 08:27 04/04/22 11:53 04/04/22 11:39 Temperature 98.1 F Pulse Rate 87 89 93 Respiratory Rate 20 20 20 Blood Pressure 122/56 L Pulse Oximetry 93 Oxygen Delivery Method Nasal Cannula Oxygen Flow Rate 3.5 04/04/22 15:00 04/04/22 17:50 04/04/22 18:12 Temperature 98.3 F Pulse Rate 94 78 Respiratory Rate 20 20 17 Blood Pressure 124/58 L Pulse Oximetry 93 Oxygen Delivery Method Nasal Cannula Oxygen Flow Rate 4 04/04/22 19:26 Temperature 97 F Pulse Rate 76 Respiratory Rate 20 Blood Pressure 112/55 L Pulse Oximetry 100 Oxygen Delivery Method BiPAP Oxygen Flow Rate 4 BMI result Body Mass Index 55.8 Labs Results: 04/07/22 09:52 04/07/22 09:52 Labs: Laboratory Results - last 48 hr 04/03/22 04/03/22 04/03/22 07:11 11:01 11:01 WBC 6.2 RBC 3.18 L Hgb 8.5 L Hct 30.2 L MCV 95.0 MCH 26.7 L MCHC 28.1 L RDW 17.6 H Plt Count 126 L D MPV 9.8 Immature Gran % (Auto) Neut % (Auto) Lymph % (Auto) Scott % (Auto) Eos % (Auto) Baso % (Auto) Lymph # (Auto) Scott # (Auto) Eos # (Auto) Baso # (Auto) Abs Immat Gran (auto) Absolute Neuts (auto) Absolute Nucleated RBC 0.020 H Nucleated RBC % (auto) 0.3 H O2 Saturation ABG pH at Pt Temp ABG pCO2 at Pt Temp ABG pO2 at Pt Temp ABG HCO3 ABG Base Excess (Actual) VBG pH VBG pCO2 VBG pO2 VBG HCO3 VBG O2 Saturation VBG Base Excess Sodium Potassium Chloride Carbon Dioxide Anion Gap BUN Creatinine Estim Creat Clear Calc Estimated GFR POC Glucose 131 H Random Glucose Calcium Iron TIBC % Saturation Unsat Iron Binding Ferritin B-Natriuretic Peptide 595 H Vitamin B12 Folate Urine Color Urine Appearance Urine pH Ur Specific [place] Urine Protein Urine Glucose (UA) Urine Ketones Urine Blood Urine Nitrite Ur Leukocyte Esterase Urine RBC Urine WBC Ur Squamous Epith Cells Urine Bacteria Hyaline Casts Ur Random Sodium Urine Creatinine 04/03/22 04/03/22 04/03/22 11:02 11:07 11:19 WBC RBC Hgb Hct MCV MCH MCHC RDW Plt Count MPV Immature Gran % (Auto) Neut % (Auto) Lymph % (Auto) Scott % (Auto) Eos % (Auto) Baso % (Auto) Lymph # (Auto) Scott # (Auto) Eos # (Auto) Baso # (Auto) Abs Immat Gran (auto) Absolute Neuts (auto) Absolute Nucleated RBC Nucleated RBC % (auto) O2 Saturation ABG pH at Pt Temp ABG pCO2 at Pt Temp ABG pO2 at Pt Temp ABG HCO3 ABG Base Excess (Actual) VBG pH 7.23 L VBG pCO2 64 VBG pO2 53 VBG HCO3 27 H VBG O2 Saturation 80.0 VBG Base Excess -1.0 Sodium 141 Potassium 5.5 H Chloride 107 Carbon Dioxide 25 Anion Gap 15 BUN 86 H Creatinine 1.83 H Estim Creat Clear Calc 44.0 Estimated GFR 28 POC Glucose 141 H Random Glucose 149 H Calcium 8.2 L Iron TIBC % Saturation Unsat Iron Binding Ferritin B-Natriuretic Peptide Vitamin B12 Folate Urine Color Urine Appearance Urine pH Ur Specific [place] Urine Protein Urine Glucose (UA) Urine Ketones Urine Blood Urine Nitrite Ur Leukocyte Esterase Urine RBC Urine WBC Ur Squamous Epith Cells Urine Bacteria Hyaline Casts Ur Random Sodium Urine Creatinine 04/03/22 04/03/22 04/04/22 15:14 19:08 03:03 WBC RBC Hgb Hct MCV MCH MCHC RDW Plt Count MPV Immature Gran % (Auto) Neut % (Auto) Lymph % (Auto) Scott % (Auto) Eos % (Auto) Baso % (Auto) Lymph # (Auto) Scott # (Auto) Eos # (Auto) Baso # (Auto) Abs Immat Gran (auto) Absolute Neuts (auto) Absolute Nucleated RBC Nucleated RBC % (auto) O2 Saturation ABG pH at Pt Temp ABG pCO2 at Pt Temp ABG pO2 at Pt Temp ABG HCO3 ABG Base Excess (Actual) VBG pH VBG pCO2 VBG pO2 VBG HCO3 VBG O2 Saturation VBG Base Excess Sodium Potassium Chloride Carbon Dioxide Anion Gap BUN Creatinine Estim Creat Clear Calc Estimated GFR POC Glucose 162 H 181 H Random Glucose Calcium Iron TIBC % Saturation Unsat Iron Binding Ferritin B-Natriuretic Peptide Vitamin B12 Folate Urine Color Yellow Urine Appearance Clear Urine pH 5.0 Ur Specific [place] 1.010 Urine Protein Negative Urine Glucose (UA) Negative Urine Ketones Negative Urine Blood Small (1+) H Urine Nitrite Negative Ur Leukocyte Esterase Negative Urine RBC 3-5 H Urine WBC 0-5 Ur Squamous Epith Cells 0-2 Urine Bacteria None Seen Hyaline Casts 11-20 Ur Random Sodium Urine Creatinine 04/04/22 04/04/22 04/04/22 03:04 06:19 07:28 WBC RBC Hgb Hct MCV MCH MCHC RDW Plt Count MPV Immature Gran % (Auto) Neut % (Auto) Lymph % (Auto) Scott % (Auto) Eos % (Auto) Baso % (Auto) Lymph # (Auto) Scott # (Auto) Eos # (Auto) Baso # (Auto) Abs Immat Gran (auto) Absolute Neuts (auto) Absolute Nucleated RBC Nucleated RBC % (auto) O2 Saturation ABG pH at Pt Temp ABG pCO2 at Pt Temp ABG pO2 at Pt Temp ABG HCO3 ABG Base Excess (Actual) VBG pH VBG pCO2 VBG pO2 VBG HCO3 VBG O2 Saturation VBG Base Excess Sodium 143 Potassium 5.3 H Chloride 107 Carbon Dioxide 26 Anion Gap 15 BUN 87 H Creatinine 1.80 H Estim Creat Clear Calc 44.8 Estimated GFR 29 POC Glucose 207 H Random Glucose 247 H Calcium 8.3 L Iron TIBC % Saturation Unsat Iron Binding Ferritin B-Natriuretic Peptide Vitamin B12 Folate Urine Color Urine Appearance Urine pH Ur Specific [place] Urine Protein Urine Glucose (UA) Urine Ketones Urine Blood Urine Nitrite Ur Leukocyte Esterase Urine RBC Urine WBC Ur Squamous Epith Cells Urine Bacteria Hyaline Casts Ur Random Sodium 79.0 Urine Creatinine 46.06 04/04/22 04/04/22 04/04/22 08:08 08:31 08:31 WBC 5.1 RBC 3.02 L Hgb 8.1 L Hct 28.3 L MCV 93.7 MCH 26.8 L MCHC 28.6 L RDW 17.8 H Plt Count 129 L MPV 10.3 Immature Gran % (Auto) 1.0 H Neut % (Auto) 75.2 H Lymph % (Auto) 10.8 L Scott % (Auto) 10.4 Eos % (Auto) 2.4 Baso % (Auto) 0.2 Lymph # (Auto) 0.6 L Scott # (Auto) 0.5 Eos # (Auto) 0.1 Baso # (Auto) 0.0 Abs Immat Gran (auto) 0.05 H Absolute Neuts (auto) 3.8 Absolute Nucleated RBC 0.060 H Nucleated RBC % (auto) 1.2 H O2 Saturation 85.0 ABG pH at Pt Temp 7.27 L ABG pCO2 at Pt Temp 68 H* ABG pO2 at Pt Temp 62 L ABG HCO3 31 H ABG Base Excess (Actual) 3.8 VBG pH VBG pCO2 VBG pO2 VBG HCO3 VBG O2 Saturation VBG Base Excess Sodium 144 Potassium 5.3 H Chloride 108 Carbon Dioxide 26 Anion Gap 15 BUN 88 H Creatinine 1.75 H Estim Creat Clear Calc 46.1 Estimated GFR 30 POC Glucose Random Glucose 247 H Calcium 8.4 Iron 37 TIBC 320 % Saturation 12 L Unsat Iron Binding 283 Ferritin 150 B-Natriuretic Peptide Vitamin B12 Folate Urine Color Urine Appearance Urine pH Ur Specific [place] Urine Protein Urine Glucose (UA) Urine Ketones Urine Blood Urine Nitrite Ur Leukocyte Esterase Urine RBC Urine WBC Ur Squamous Epith Cells Urine Bacteria Hyaline Casts Ur Random Sodium Urine Creatinine 04/04/22 04/04/22 04/04/22 08:31 08:31 10:58 WBC RBC Hgb Hct MCV MCH MCHC RDW Plt Count MPV Immature Gran % (Auto) Neut % (Auto) Lymph % (Auto) Scott % (Auto) Eos % (Auto) Baso % (Auto) Lymph # (Auto) Scott # (Auto) Eos # (Auto) Baso # (Auto) Abs Immat Gran (auto) Absolute Neuts (auto) Absolute Nucleated RBC Nucleated RBC % (auto) O2 Saturation ABG pH at Pt Temp ABG pCO2 at Pt Temp ABG pO2 at Pt Temp ABG HCO3 ABG Base Excess (Actual) VBG pH VBG pCO2 VBG pO2 VBG HCO3 VBG O2 Saturation VBG Base Excess Sodium Potassium Chloride Carbon Dioxide Anion Gap BUN Creatinine Estim Creat Clear Calc Estimated GFR POC Glucose 200 H Random Glucose Calcium Iron TIBC % Saturation Unsat Iron Binding Ferritin B-Natriuretic Peptide 726 H Vitamin B12 292 Folate 8.8 Urine Color Urine Appearance Urine pH Ur Specific [place] Urine Protein Urine Glucose (UA) Urine Ketones Urine Blood Urine Nitrite Ur Leukocyte Esterase Urine RBC Urine WBC Ur Squamous Epith Cells Urine Bacteria Hyaline Casts Ur Random Sodium Urine Creatinine 04/04/22 04/04/22 15:28 19:34 WBC RBC Hgb Hct MCV MCH MCHC RDW Plt Count MPV Immature Gran % (Auto) Neut % (Auto) Lymph % (Auto) Scott % (Auto) Eos % (Auto) Baso % (Auto) Lymph # (Auto) Scott # (Auto) Eos # (Auto) Baso # (Auto) Abs Immat Gran (auto) Absolute Neuts (auto) Absolute Nucleated RBC Nucleated RBC % (auto) O2 Saturation ABG pH at Pt Temp ABG pCO2 at Pt Temp ABG pO2 at Pt Temp ABG HCO3 ABG Base Excess (Actual) VBG pH VBG pCO2 VBG pO2 VBG HCO3 VBG O2 Saturation VBG Base Excess Sodium Potassium Chloride Carbon Dioxide Anion Gap BUN Creatinine Estim Creat Clear Calc Estimated GFR POC Glucose 196 H 205 H Random Glucose Calcium Iron TIBC % Saturation Unsat Iron Binding Ferritin B-Natriuretic Peptide Vitamin B12 Folate Urine Color Urine Appearance Urine pH Ur Specific [place] Urine Protein Urine Glucose (UA) Urine Ketones Urine Blood Urine Nitrite Ur Leukocyte Esterase Urine RBC Urine WBC Ur Squamous Epith Cells Urine Bacteria Hyaline Casts Ur Random Sodium Urine Creatinine Imaging Radiology Impressions: ITS Impressions Chest X-Ray 03/26/22 04:50 IMPRESSION: Prominent central vasculature suggesting a degree of congestion. Enlarged cardiac silhouette. Venous Duplex 03/26/22 09:50 IMPRESSION: No deep vein thrombosis in the visualized veins of the right lower extremity. The peroneal and posterior tibial veins in the calf were not visualized. Ankle X-Ray 03/26/22 10:00 IMPRESSION: * No acute osseous injury at the right ankle. * There are no radiographic findings to suggest presence of septic arthritis or osteomyelitis. * Nonspecific diffuse soft tissue swelling of the examined lower extremity, ankle and foot. Chest X-Ray 03/27/22 16:33 IMPRESSION: Mild prominence of the pulmonary vasculature and cardiac silhouette may be baseline for the patient, but mild congestion cannot be excluded. Venous Duplex 03/29/22 15:03 IMPRESSION: No DVT demonstrated in the right lower extremity. Soft tissue abnormality consistent with edema Chest X-Ray 04/03/22 11:17 IMPRESSION: * The examination of lungs is partially limited by the patient's body habitus. * Cardiomegaly and pulmonary vascular congestion. Findings are suggestive of congestive heart failure. The slightly increased hazy opacities of lower lung zones could represent atelectasis, infiltrates and/or layering of small effusions. Mental Status Exam Mental Status Exam Narrative: A&O. Morbidly obese, in hospital attire, asleep. Poor eye contact, inattentive. No Tics or Tremors. No abnormal involuntary movements. Calm, currently in behavioral control. Non-pressured speech, spontaneous with regular rate and rhythm, slurred speech, whispering. No prolonged speech latency or dysarthria. Mood is depressed. No lability. Denies SI/SIB/HI upon inquiry. Reponding to VH, paranoid thought content. Thoughts are distracted, derailed. No known cognitive or memory impairment. Insight/ Judgment limited. Medications Medications Current Medications Acetaminophen (Acetaminophen 325 Mg Tablet) 650 mg PO Q6H PRN PRN Reason: Pain, Mild (Pain Scale 1-3) Last Admin: 03/30/22 07:32 Dose: 650 mg Acetazolamide (Acetazolamide 250 Mg Tablet) 250 mg PO BID [facility] Last Admin: 04/04/22 21:11 Dose: 250 mg Albuterol/Ipratropium (Albuterol/Iprat 2.5/0.5mg 3 Ml Ampul.Neb) 3 ml INHALE RQ6H HI Last Admin: 04/04/22 17:47 Dose: 3 ml Amlodipine Besylate (Amlodipine Besylate 10 Mg Tablet) 10 mg PO DAILY [facility]; Protocol Last Admin: 04/04/22 08:35 Dose: 10 mg Aspirin (Aspirin Enteric Coated 81 Mg Tablet.) 81 mg PO DAILY [facility] Last Admin: 04/04/22 08:36 Dose: 81 mg Atorvastatin Calcium (Atorvastatin Calcium 10 Mg Tablet) 10 mg PO BEDTIME HI Last Admin: 04/04/22 21:11 Dose: 10 mg Clonidine HCl (Clonidine Hcl 0.1 Mg Tablet) 0.1 mg PO TID PRN; Protocol PRN Reason: hyperarousal, anxiety, panic Last Admin: 04/04/22 04:01 Dose: 0.1 mg Doxycycline Hyclate (Doxycycline Hyclate 100 Mg Tablet) 100 mg PO Q12H HI Last Admin: 04/04/22 18:06 Dose: 100 mg Empagliflozin (Empagliflozin 10 Mg Tablet) 10 mg PO DAILY [facility] Enoxaparin Sodium (Enoxaparin Sodium 40 Mg/0.4 Ml Syringe) 40 mg SUBCUT Q24H [facility] Last Admin: 04/04/22 08:37 Dose: 40 mg Fluoxetine HCl (Fluoxetine Hcl 20 Mg Capsule) 40 mg PO DAILY [facility] Last Admin: 04/04/22 08:35 Dose: 40 mg Fluticasone Propionate (Fluticasone Propionate 100 Mcg Blst.W.Dev) 2 puff INHALE RBID [facility] Last Admin: 04/04/22 20:15 Dose: Not Given Gabapentin (Gabapentin 400 Mg Capsule) 800 mg PO BEDTIME [facility] Last Admin: 04/02/22 20:25 Dose: 800 mg Gabapentin (Gabapentin 100 Mg Capsule) 200 mg PO BID@0900,1200 [facility] Last Admin: 04/04/22 12:06 Dose: 200 mg Furosemide 200 mg/ Sodium (Chloride) 100 mls @ 5 mls/hr IVCONT .Q20H [facility] Last Admin: 04/04/22 19:29 Dose: Not Given Insulin Glargine (Insulin Glargine,Hum.Rec.Anlog 100 Unit/Ml 10 Ml Vial) 50 unit SUBCUT BEDTIME [facility] Last Admin: 04/04/22 21:16 Dose: 50 unit Insulin Human Lispro (Insulin Lispro 100 Unit/Ml 3 Ml Vial) 0 unit SUBCUT QIDACHS [facility]; Protocol Last Admin: 04/04/22 21:11 Dose: 4 unit Isosorbide Mononitrate (Isosorbide Mononitrate 30 Mg Tab.Er.24h) 30 mg PO DAILY [facility]; Protocol Last Admin: 04/04/22 08:35 Dose: 30 mg Meclizine HCl (Meclizine Hcl 25 Mg Tablet) 25 mg PO TID PRN PRN Reason: Dizziness Last Admin: 04/01/22 16:09 Dose: 25 mg Metoprolol Succinate (Metoprolol Succinate Er 50 Mg Tab.Er.24h) 50 mg PO DAILY [facility]; Protocol Last Admin: 04/04/22 08:37 Dose: 50 mg Nystatin (Nystatin Powder 15 Gm Bottle) 1 appl TOPICAL BID [facility]; Protocol Last Admin: 04/04/22 21:17 Dose: 1 appl Omeprazole (Omeprazole 20 Mg Capsule.Dr) 20 mg PO BEDTIME [facility] Last Admin: 04/04/22 21:11 Dose: 20 mg Pharmacy Consult (Consult Rx Perform Med Rec) 1 each MISCELLANE ONCE PRN PRN Reason: Consult order Pharmacy Consult (Consult Rx Vancomycin Dosing) 1 each MISCELLANE DAILY PRN PRN Reason: Consult order Polyethylene Glycol (Polyethylene Glycol 3350 17 Gm Powd.Pack) 17 gm PO DAILY PRN PRN Reason: constipation Pregabalin (Pregabalin 100 Mg Capsule) 100 mg PO BID [facility] Last Admin: 04/03/22 09:26 Dose: 100 mg Risperidone (Risperidone 1 Mg Tablet) 1 mg PO BID [facility] Sodium Chloride (0.9 % Sodium Chloride Flush 3 Ml Syringe) 3 ml IVFLUSH QSHIFT [facility] Last Admin: 04/04/22 16:24 Dose: 3 ml Tizanidine HCl (Tizanidine Hcl 4 Mg Tablet) 4 mg PO DAILY@1600 [facility] Last Admin: 04/04/22 16:28 Dose: 4 mg Vitamin D (Cholecalciferol (Vitamin D3) 25 Mcg Tablet) 25 mcg PO DAILY [facility] Last Admin: 04/04/22 08:36 Dose: 25 mcg Allergies Allergies Allergy/AdvReac Type Severity Reaction Status Date / Time acetaminophen [Tylenol] Allergy Intermediate vomiting, Verified 04/04/22 10:52 itching, hives ibuprofen Allergy Intermediate vommiting, Verified 04/04/22 10:51 itching morphine AdvReac Intermediate vomiting Verified 04/04/22 10:51 Assessment & Plan Assessment & Plan (1) Acute CHF: Status: Acute Code(s): I50.9 - Heart failure, unspecified (2) FELICIA (acute kidney injury): Status: Acute Code(s): N17.9 - Acute kidney failure, unspecified (3) Respiratory failure: Status: Acute Code(s): J96.90 - Respiratory failure, unspecified, unspecified whether with hypoxia or hypercapnia (4) Morbid obesity: Status: Acute Code(s): E66.01 - Morbid (severe) obesity due to excess calories (5) NICM (nonischemic cardiomyopathy): Status: Acute Code(s): I42.8 - Other cardiomyopathies (6) Acute on chronic combined systolic and diastolic CHF (congestive heart failure): Status: Acute Code(s): I50.43 - Acute on chronic combined systolic (congestive) and diastolic (congestive) heart failure (7) COPD (chronic obstructive pulmonary disease): Status: Acute Code(s): J44.9 - Chronic obstructive pulmonary disease, unspecified (8) Acute respiratory failure with hypoxia and hypercapnia: Status: Acute Code(s): J96.01 - Acute respiratory failure with hypoxia; J96.02 - Acute respiratory failure with hypercapnia (9) Adjustment disorder with mixed anxiety and depressed mood: Status: Acute Code(s): F43.23 - Adjustment disorder with mixed anxiety and depressed mood (10) MDD (major depressive disorder), recurrent episode, moderate: Status: Acute Code(s): F33.1 - Major depressive disorder, recurrent, moderate Plan 03/28: Pt has continued on haldol 2 mg QHS, started at [facility] [facility] for A/VH in the context of delirium, she was supposed to only use it as a PRN, however her daughter said she stopped it for 2 days and her hallucinations returned, so she resumed taking it nightly. She is now complaining of restlessness, possible akathesia. Will discontinue haldol PRN. Will start risperdal 0.5 mg BID for anxious distress, agitation, and hallucinations- discussed with pt and her daughter that this should not be used usp, as pt has morbid obesity. Currently her appetite is low, but she would be at risk of increased metabolic SE with continued use. Presumably, pt?s sx of acute anxiety and hallucinations should be self limiting once she is back to baseline, as she does not have a hx of panic or psychosis and these sx started with the exacerbation of her medical conditions. Will start clonidine 0.1 mg TID PRN for breakthrough anxiety and hyperarousal. At this time, pt is not meeting criteria for psych IPLOC and there are no imminent safety concerns. 04/01: Today I assessed the patient for capacity. Pt is making the medical decision to refuse transfer to short term rehab and requesting to discharge home, however pt will likely not have 24/hr care and she does not appear able to care for herself independently. Per staff internist office based only, pt has been screaming out, lethargic throughout the day, and demanding PRN medications. Pt difficult to understand, slurring her words, whispering, but continues with persistent anxiety. I would not recommend increasing risperdal or clonidine, as she is not lethargic at baseline. These medications do not appear to be exacerbating her lethargy, as she presented with sedation prior to starting them. Pt is not able to demonstrate an understanding of the consequences that declining short term rehab will have on her health. Therefore, I recommend invoking her daughter as HCP. Pt's daughter is currently working on setting up in home services for her mother and applying for increased VNA hours in order to aid with safe discharge. 04/04: Will increase risperdal to 1 mg BID for psychotic sx, agitation. Discussed with daughter, she is in agreement with plan. Thank you for this consultation. If you have any questions or concerns, please do not hesitate to contact psychiatry service I spent minutes with the patient and/or on the patient floor today, greater than?50% of which was spent counseling/coordinating care. Patient educated on: other
[2022-04-05] VITALS (9 sets, daily range): BP systolic 118–157; BP diastolic 56–70; PULSE 57–102; RESP 17–22; TEMP 36.5–36.9; O2SAT 90–99
[2022-04-05] MEDS: Albuterol/Iprat 2.5/0.5MG 3 ML AMPUL.NEB INHALE ×4 (00:02→23:24)
--- NOTE | 2022-04-05 02:28 | PC.NURSE ---
PT had 8 beats of V Tach on tele, MD Forte notified. PT is resting quietly with eyes closed.
--- NOTE | 2022-04-05 02:38 | PC.NURSE ---
PT is refusing Bipap machine, PT has 4L O2/NC on. RN and respiratory educated PT on importance of wearing bipap while napping and sleeping. PT still refusing, PT appraoched 3 x and still refusing. PT resting quietly with eyes closed.
[2022-04-05] MEDS: Acetaminophen 325 MG TABLET 650 MG PO (02:56)
[2022-04-05 05:43] LABS: VBG Base Excess 10.8 mmol/L; VBG HCO3 38 mmol/L (22-26); VBG pCO2 65 mmHg; VBG pH 7.37 (7.32-7.43); VBG pO2 127 mmHg
[2022-04-05 05:44] LABS: Venous Blood Gas Refer to POC result
[2022-04-05 06:04] LABS: MANUAL DIFF FLAG NO
--- NOTE | 2022-04-05 06:05 | PC.NURSE ---
PT refusing to get out of chair with the Angela alex, PT currently in chair and requesting to be cleaned up and go to the bed, multiple attempts were made with different staff members to get PT to help us get her out of chair with the Angela alex. PT would say, 'Okay let's get up I want to go into the bed, When staff tried to help PT she would refuse again, this back and forth went on for over an hour. PT has stage II on coccyx and is refusing to get into bed or on the commode so that staff can clean her and put barrier cream on.
[2022-04-05 06:08] LABS: Basophils Percent Auto 0.4 % (0-2); Eosinophils Absolute Auto 0.3 X10*3/uL (0.0-0.4); Eosinophils Percent Auto 4.8 % (0-4); Hematocrit 30.7 % (37.0-47.0); Hemoglobin 8.9 g/dl (12.0-16.0); Imm Gran Abs Auto 0.03 X10*3/uL (0.00-0.03); Imm Gran Pct Auto 0.6 % (0.0-0.4); Lymphocytes Percent Auto 18.8 % (20-40); Mean Corpuscular Hemoglobin 26.8 pg (27.0-33.0); Mean Corpuscular Volume 92.5 fL (80.0-98.0); Mean Platelet Volume 10.3 fL (9.4-12.3); Monocytes Absolute Auto 0.5 X10*3/uL (0.1-1.2); Monocytes Percent Auto 9.6 % (2-11); NRBC Pct Auto 0.6 /100WBC (0.0-0.2); Neutrophils Absolute Auto 3.4 x10*3/uL (2.0-8.3); Neutrophils Percent Auto 65.8 % (45-73); Platelet Count 157 X10*3/uL (160-400); Red Blood Count 3.32 X10*6/uL (4.20-5.50); White Blood Count 5.2 X10*3/uL (4.8-10.8)
[2022-04-05 06:25] LABS: Anion Gap 16 (12-20); Blood Urea Nitrogen 79 mg/dL (9-16); Calcium 8.7 mg/dL (8.4-10.2); Carbon Dioxide 32 mmol/L (22-29); Chloride 105 mmol/L (96-108); Creatinine Clr Calc Pharmacy 60.2; Estimated Glomerular Filt Rate 40; Glucose Random 135 mg/dL (60-115); Potassium 4.4 mmol/L (3.3-5.1); Sodium 149 mmol/L (135-145)
--- NOTE | 2022-04-05 06:35 | PC.NURSE ---
PT transferred into bed with Angela Steady, cleaned up and barrier cream applied to coccyx.
[2022-04-05 07:31] LABS: Glucose, Whole Blood 124 mg/dL (60-115)
--- NOTE | 2022-04-05 09:03 | PC.NURSE ---
Lupis refused all care this morning - increasingly hostile, You're not going to touch me. You're with them, all those people making false accusations. She is presenting as very agitated with pressured speech, paranoia and flight of ideas. Tito TRINIDAD notified.
--- NOTE | 2022-04-05 10:26 | PM.PNCARD ---
Subjective Subjective Date of Service: 04/05/22 Principal diagnosis: Decompensated heart failure predominantly right-sided heart failure Interval history: Patient has diuresed well overnight greater than 5 L. is improved. She denies any shortness of breath or chest pain. No other cardiac symptoms. Review of Systems Review of Systems Yes all other systems are reviewed and are negative Physical Exam Vital Signs: Last Vital Signs Temp 98.5 F 04/05/22 07:01 Pulse 91 04/05/22 07:01 Resp 18 04/05/22 07:01 BP 118/56 L 04/05/22 03:52 Pulse Ox 97 04/05/22 07:01 O2 Del Method 04/05/22 07:01 O2 Flow Rate 6 04/05/22 07:01 BMI result Body Mass Index 55.8 Const General: cooperative, comfortable, no acute distress, alert and awake Nutritional Appearance: obese morbidly obese Orientation/consciousness: patient oriented x3 Neck Neck: Yes trachea midline and Yes other (Cannot accurately evaluate JVD) Resp Effort & Inspection: decreased respiratory effort Auscultation: no rales and no wheezes Cardio Palpation: normal PMI Rate: regular rate Rhythm: regular rhythm Heart sounds: S1 normal heart sound present, S2 normal heart sound present, no click, no gallops and Murmur heart sound present systolic GI Inspection: Yes Abdominal panniculus present Auscultation: normal bowel sounds Skin General skin exam: no rashes or lesions noted Neuro General: patient oriented x3 Extrem General: No clubbing, No cyanosis and Yes edema (This has improved compared to yesterday) Objective Labs and Meds Result diagrams: 04/05/22 05:37 04/05/22 05:37 Lab results: Laboratory Results - last 24 hr 04/04/22 04/04/22 04/04/22 08:31 08:31 08:31 WBC RBC Hgb Hct MCV MCH MCHC RDW Plt Count MPV Immature Gran % (Auto) Neut % (Auto) Lymph % (Auto) [place] % (Auto) Eos % (Auto) Baso % (Auto) Lymph # (Auto) [place] # (Auto) Eos # (Auto) Baso # (Auto) Abs Immat Gran (auto) Absolute Neuts (auto) Absolute Nucleated RBC Nucleated RBC % (auto) VBG pH VBG pCO2 VBG pO2 VBG HCO3 VBG O2 Saturation VBG Base Excess Sodium Potassium Chloride Carbon Dioxide Anion Gap BUN Creatinine Estim Creat Clear Calc Estimated GFR POC Glucose Random Glucose Calcium Iron 37 TIBC 320 % Saturation 12 L Unsat Iron Binding 283 Ferritin 150 B-Natriuretic Peptide 726 H Vitamin B12 292 Folate 8.8 04/04/22 04/04/22 04/04/22 10:58 15:28 19:34 WBC RBC Hgb Hct MCV MCH MCHC RDW Plt Count MPV Immature Gran % (Auto) Neut % (Auto) Lymph % (Auto) [place] % (Auto) Eos % (Auto) Baso % (Auto) Lymph # (Auto) [place] # (Auto) Eos # (Auto) Baso # (Auto) Abs Immat Gran (auto) Absolute Neuts (auto) Absolute Nucleated RBC Nucleated RBC % (auto) VBG pH VBG pCO2 VBG pO2 VBG HCO3 VBG O2 Saturation VBG Base Excess Sodium Potassium Chloride Carbon Dioxide Anion Gap BUN Creatinine Estim Creat Clear Calc Estimated GFR POC Glucose 200 H 196 H 205 H Random Glucose Calcium Iron TIBC % Saturation Unsat Iron Binding Ferritin B-Natriuretic Peptide Vitamin B12 Folate 04/05/22 04/05/22 04/05/22 05:37 05:37 05:38 WBC 5.2 RBC 3.32 L Hgb 8.9 L Hct 30.7 L MCV 92.5 MCH 26.8 L MCHC 29.0 L RDW 18.0 H Plt Count 157 L MPV 10.3 Immature Gran % (Auto) 0.6 H Neut % (Auto) 65.8 Lymph % (Auto) 18.8 L [place] % (Auto) 9.6 Eos % (Auto) 4.8 H Baso % (Auto) 0.4 Lymph # (Auto) 1.0 L [place] # (Auto) 0.5 Eos # (Auto) 0.3 Baso # (Auto) 0.0 Abs Immat Gran (auto) 0.03 Absolute Neuts (auto) 3.4 Absolute Nucleated RBC 0.030 H Nucleated RBC % (auto) 0.6 H VBG pH 7.37 VBG pCO2 65 VBG pO2 127 VBG HCO3 38 H VBG O2 Saturation 99.0 VBG Base Excess 10.8 Sodium 149 H Potassium 4.4 Chloride 105 Carbon Dioxide 32 H Anion Gap 16 BUN 79 H Creatinine 1.34 Estim Creat Clear Calc 60.2 Estimated GFR 40 POC Glucose Random Glucose 135 H Calcium 8.7 Iron TIBC % Saturation Unsat Iron Binding Ferritin B-Natriuretic Peptide Vitamin B12 Folate 04/05/22 06:58 WBC RBC Hgb Hct MCV MCH MCHC RDW Plt Count MPV Immature Gran % (Auto) Neut % (Auto) Lymph % (Auto) [place] % (Auto) Eos % (Auto) Baso % (Auto) Lymph # (Auto) [place] # (Auto) Eos # (Auto) Baso # (Auto) Abs Immat Gran (auto) Absolute Neuts (auto) Absolute Nucleated RBC Nucleated RBC % (auto) VBG pH VBG pCO2 VBG pO2 VBG HCO3 VBG O2 Saturation VBG Base Excess Sodium Potassium Chloride Carbon Dioxide Anion Gap BUN Creatinine Estim Creat Clear Calc Estimated GFR POC Glucose 124 H Random Glucose Calcium Iron TIBC % Saturation Unsat Iron Binding Ferritin B-Natriuretic Peptide Vitamin B12 Folate Progress Note: A&P Assessment and plan (1) Acute CHF: Status: Acute Assessment and Plan: Acute congestive heart failure in this middle-aged woman which is very difficult to assess given her body habitus and fluid status difficult to assess. Her renal function is improved with IV diuresis and she has diuresed well, suggestive that she has cardiorenal syndrome and renal capsular congestion related to elevated right atrial pressures. Will continue IV diuresis for 1 more day. Strict intake and output chart needs to be pursued. Strongly recommend to pursue her BNP and BMP await to monitor her heart failure management and progress. Switch her amlodipine to hydralazine 25 mg b.i.d.. Also add Aldactone 25 mg to regimen. Follow renal function potassium. Overall prognosis guarded given multiple comorbidities and poor psychosocial status. Will sign of the case. Case discussed with Johana Francis. Time Spent With Patient Time: Total time spent is greater than 50% in coordination of care (as documented) at patient's floor/unit and/or counseling patient: Progress Note: Quality Stroke Does the patient have a stroke diagnosis?: No Procedures Date of Service Date of Service: 04/05/22
--- NOTE | 2022-04-05 10:34 | P.PNIM_ITS ---
Subjective Subjective Date of Service: 04/05/22 Interval History: follow up for cellulitis, panic, CHF, respiratory failure Sitting in her chair, alert to person, place, time, did not know the month Apparently was agitated overnight Review of Systems Review of Systems: Yes all other systems are reviewed and are negative Constitutional Constitutional: Denies chills and Denies fever(s) Cardiovascular Cardiovascular: Denies chest pain, Denies palpitations and Denies dyspnea Respiratory Respiratory: Denies cough and Denies dyspnea Gastrointestinal Gastrointestinal: Denies abdominal pain Endocrine Endocrine: Denies palpitations Physical Exam Vital Signs: Vital Signs: Last Vital Signs Temp 98.5 F 04/05/22 07:01 Pulse 91 04/05/22 07:01 Resp 18 04/05/22 07:01 BP 118/56 L 04/05/22 03:52 Pulse Ox 97 04/05/22 07:01 O2 Del Method 04/05/22 07:01 O2 Flow Rate 6 04/05/22 07:01 BMI result Body Mass Index 55.8 Appearing in no acute distress lung sounds rales heart regular rate rhythm, clear S1, S2 positive bowel sounds, abdomen is soft, nontender neuro patient is alert x3, no focal deficits Objective Data Active Medications Acetaminophen (Acetaminophen 325 Mg Tablet) 650 mg PO Q6H PRN PRN Reason: Pain, Mild (Pain Scale 1-3) Last Admin: 04/05/22 02:56 Dose: 650 mg Documented By: MORTEZA Acetazolamide (Acetazolamide 250 Mg Tablet) 250 mg PO BID [facility] Last Admin: 04/05/22 08:59 Dose: Not Given Documented By: CHRISTEL Non-Admin Reason: Patient Refused Albuterol/Ipratropium (Albuterol/Iprat 2.5/0.5mg 3 Ml Ampul.Neb) 3 ml INHALE RQ6H [facility] Last Admin: 04/05/22 05:46 Dose: 3 ml Documented By: VIRGINIE Amlodipine Besylate (Amlodipine Besylate 10 Mg Tablet) 10 mg PO DAILY [facility]; Protocol Last Admin: 04/05/22 08:59 Dose: Not Given Documented By: CHRISTEL Non-Admin Reason: Patient Refused Aspirin (Aspirin Enteric Coated 81 Mg Tablet.) 81 mg PO DAILY [facility] Last Admin: 04/05/22 08:59 Dose: Not Given Documented By: CHRISTEL Non-Admin Reason: Patient Refused Atorvastatin Calcium (Atorvastatin Calcium 10 Mg Tablet) 10 mg PO BEDTIME [facility] Last Admin: 04/04/22 21:11 Dose: 10 mg Documented By: MORTEZA Clonidine HCl (Clonidine Hcl 0.1 Mg Tablet) 0.1 mg PO TID PRN; Protocol PRN Reason: hyperarousal, anxiety, panic Last Admin: 04/04/22 04:01 Dose: 0.1 mg Documented By: RADHA Doxycycline Hyclate (Doxycycline Hyclate 100 Mg Tablet) 100 mg PO Q12H [facility] Last Admin: 04/05/22 05:37 Dose: 100 mg Documented By: MORTEZA Empagliflozin (Empagliflozin 10 Mg Tablet) 10 mg PO DAILY [facility] Last Admin: 04/05/22 09:00 Dose: Not Given Documented By: CHRISTEL Non-Admin Reason: Patient Refused Enoxaparin Sodium (Enoxaparin Sodium 40 Mg/0.4 Ml Syringe) 40 mg SUBCUT Q24H [facility] Last Admin: 04/05/22 09:06 Dose: Not Given Documented By: CHRISTEL Non-Admin Reason: Patient Refused Fluoxetine HCl (Fluoxetine Hcl 20 Mg Capsule) 40 mg PO DAILY [facility] Last Admin: 04/05/22 09:00 Dose: Not Given Documented By: CHRISTEL Non-Admin Reason: Patient Refused Fluticasone Propionate (Fluticasone Propionate 100 Mcg Blst.W.Dev) 2 puff INHALE RBID [facility] Last Admin: 04/05/22 08:23 Dose: Not Given Documented By: OLIVIA Non-Admin Reason: Patient Refused Gabapentin (Gabapentin 400 Mg Capsule) 800 mg PO BEDTIME [facility] Last Admin: 04/02/22 20:25 Dose: 800 mg Documented By: KWASI Gabapentin (Gabapentin 100 Mg Capsule) 200 mg PO BID@0900,1200 [facility] Last Admin: 04/05/22 09:00 Dose: Not Given Documented By: CHRISTEL Non-Admin Reason: Patient Refused Furosemide 200 mg/ Sodium (Chloride) 100 mls @ 5 mls/hr IVCONT .Q20H [facility] Last Admin: 04/04/22 19:27 Dose: 5 mg/hr, 2.5 mls/hr Documented By: MORTEZA Insulin Glargine (Insulin Glargine,Hum.Rec.Anlog 100 Unit/Ml 10 Ml Vial) 50 unit SUBCUT BEDTIME [facility] Last Admin: 04/04/22 21:16 Dose: 50 unit Documented By: MORTEZA Insulin Human Lispro (Insulin Lispro 100 Unit/Ml 3 Ml Vial) 0 unit SUBCUT QIDACHS [facility]; Protocol Last Admin: 04/05/22 07:44 Dose: Not Given Documented By: CHRISTEL Non-Admin Reason: No Insulin Coverage Isosorbide Mononitrate (Isosorbide Mononitrate 30 Mg Tab.Er.24h) 30 mg PO DAILY [facility]; Protocol Last Admin: 04/05/22 09:00 Dose: Not Given Documented By: CHRISTEL Non-Admin Reason: Patient Refused Meclizine HCl (Meclizine Hcl 25 Mg Tablet) 25 mg PO TID PRN PRN Reason: Dizziness Last Admin: 04/01/22 16:09 Dose: 25 mg Documented By: EZRA Metoprolol Succinate (Metoprolol Succinate Er 50 Mg Tab.Er.24h) 50 mg PO DAILY [facility]; Protocol Last Admin: 04/05/22 09:00 Dose: Not Given Documented By: CHRISTEL Non-Admin Reason: Patient Refused Nystatin (Nystatin Powder 15 Gm Bottle) 1 appl TOPICAL BID [facility]; Protocol Last Admin: 04/05/22 09:00 Dose: Not Given Documented By: CHRISTEL Non-Admin Reason: Patient Refused Omeprazole (Omeprazole 20 Mg ) 20 mg PO BEDTIME [facility] Last Admin: 04/04/22 21:11 Dose: 20 mg Documented By: MORTEZA Pharmacy Consult (Consult Rx Perform Med Rec) 1 each MISCELLANE ONCE PRN PRN Reason: Consult order Polyethylene Glycol (Polyethylene Glycol 3350 17 Gm Powd.Pack) 17 gm PO DAILY PRN PRN Reason: constipation Pregabalin (Pregabalin 100 Mg Capsule) 100 mg PO BID [facility] Last Admin: 04/03/22 09:26 Dose: 100 mg Documented By: EZRA Risperidone (Risperidone 1 Mg Tablet) 1 mg PO BID [facility] Last Admin: 04/05/22 09:00 Dose: Not Given Documented By: CHRISTEL Non-Admin Reason: Patient Refused Sodium Chloride (0.9 % Sodium Chloride Flush 3 Ml Syringe) 3 ml IVFLUSH QSHIFT [facility] Last Admin: 04/05/22 08:32 Dose: Not Given Documented By: CHRISTEL Non-Admin Reason: IV Running Tizanidine HCl (Tizanidine Hcl 4 Mg Tablet) 4 mg PO DAILY@1600 [facility] Last Admin: 04/04/22 16:28 Dose: 4 mg Documented By: HAZEL Vitamin D (Cholecalciferol (Vitamin D3) 25 Mcg Tablet) 25 mcg PO DAILY [facility] Last Admin: 04/05/22 08:59 Dose: Not Given Documented By: CHRISTEL Non-Admin Reason: Patient Refused Labs CBC & Chem 7: 04/05/22 05:37 04/05/22 05:37 Labs: Laboratory Results - last 24 hr 04/04/22 04/04/22 04/04/22 08:31 08:31 08:31 MCV MCH MCHC RDW Plt Count MPV Immature Gran % (Auto) Neut % (Auto) Lymph % (Auto) [place] % (Auto) Eos % (Auto) Baso % (Auto) Lymph # (Auto) [place] # (Auto) Eos # (Auto) Baso # (Auto) Abs Immat Gran (auto) Absolute Neuts (auto) Absolute Nucleated RBC Nucleated RBC % (auto) VBG pH VBG pCO2 VBG pO2 VBG HCO3 VBG O2 Saturation VBG Base Excess Anion Gap Estim Creat Clear Calc Estimated GFR POC Glucose Random Glucose Calcium Iron 37 TIBC 320 % Saturation 12 L Unsat Iron Binding 283 Ferritin 150 B-Natriuretic Peptide 726 H Vitamin B12 292 Folate 8.8 04/04/22 04/04/22 04/04/22 10:58 15:28 19:34 MCV MCH MCHC RDW Plt Count MPV Immature Gran % (Auto) Neut % (Auto) Lymph % (Auto) [place] % (Auto) Eos % (Auto) Baso % (Auto) Lymph # (Auto) [place] # (Auto) Eos # (Auto) Baso # (Auto) Abs Immat Gran (auto) Absolute Neuts (auto) Absolute Nucleated RBC Nucleated RBC % (auto) VBG pH VBG pCO2 VBG pO2 VBG HCO3 VBG O2 Saturation VBG Base Excess Anion Gap Estim Creat Clear Calc Estimated GFR POC Glucose 200 H 196 H 205 H Random Glucose Calcium Iron TIBC % Saturation Unsat Iron Binding Ferritin B-Natriuretic Peptide Vitamin B12 Folate 04/05/22 04/05/22 04/05/22 05:37 05:37 05:38 MCV 92.5 MCH 26.8 L MCHC 29.0 L RDW 18.0 H Plt Count 157 L MPV 10.3 Immature Gran % (Auto) 0.6 H Neut % (Auto) 65.8 Lymph % (Auto) 18.8 L [place] % (Auto) 9.6 Eos % (Auto) 4.8 H Baso % (Auto) 0.4 Lymph # (Auto) 1.0 L [place] # (Auto) 0.5 Eos # (Auto) 0.3 Baso # (Auto) 0.0 Abs Immat Gran (auto) 0.03 Absolute Neuts (auto) 3.4 Absolute Nucleated RBC 0.030 H Nucleated RBC % (auto) 0.6 H VBG pH 7.37 VBG pCO2 65 VBG pO2 127 VBG HCO3 38 H VBG O2 Saturation 99.0 VBG Base Excess 10.8 Anion Gap 16 Estim Creat Clear Calc 60.2 Estimated GFR 40 POC Glucose Random Glucose 135 H Calcium 8.7 Iron TIBC % Saturation Unsat Iron Binding Ferritin B-Natriuretic Peptide Vitamin B12 Folate 04/05/22 06:58 MCV MCH MCHC RDW Plt Count MPV Immature Gran % (Auto) Neut % (Auto) Lymph % (Auto) [place] % (Auto) Eos % (Auto) Baso % (Auto) Lymph # (Auto) [place] # (Auto) Eos # (Auto) Baso # (Auto) Abs Immat Gran (auto) Absolute Neuts (auto) Absolute Nucleated RBC Nucleated RBC % (auto) VBG pH VBG pCO2 VBG pO2 VBG HCO3 VBG O2 Saturation VBG Base Excess Anion Gap Estim Creat Clear Calc Estimated GFR POC Glucose 124 H Random Glucose Calcium Iron TIBC % Saturation Unsat Iron Binding Ferritin B-Natriuretic Peptide Vitamin B12 Folate Assessment and Plan (1) DANIEL (obstructive sleep apnea): Status: Acute (2) Respiratory failure: Status: Acute (3) Morbid obesity: Status: Acute (4) NICM (nonischemic cardiomyopathy): Status: Acute (5) Acute respiratory failure with hypoxia and hypercapnia: Status: Acute Plan 61 year old female with history of uncontrolled insulin dependent type 2 diabetes with pvd and neuropathy, chronic venous stasis dermatitis, asthma/COPD overlap with chronic respiratory failure on prn home O2, nonischemic ca rdiomyopathy, htn, hld, and morbid obesity to be observed for RLE cellulitis. Acute on chronic respiratory failure with hypoxia and hypercarbia Likely multifactorial and secondary to DANIEL, obesity hypoventilation, COPD and CHF Acute on chronic HFrEF Recent admission to [facility]. Echo on 03/10 with grade 2 diastolic dysfunction with EF 25-35%. Lasix drip at 10 mg an hour will continue for 1 more day Cardiology following Strict intake and output Diamox b.i.d. Check BNP tomorrow Asthma/COPD with chronic respiratory failure on prn home O2 Nocturnal CPAP, tolerated overnight, apparently at home has difficulties with compliance Schedule DuoNedaryl FELICIA on CKD 3 Recently admitted to [facility] requiring temporary dialysis Creatinine trending down Nephrology following Depression/anxiety with agitation Patient with episodes of what she describes as severe anxiety/panic. still having shouting/anxiety episodes does not meet criteria for IP psych at this time however was deemed not competent to make her own decisions and healthcare proxy will be invoked which is her daughter continue prozac, risperidal and prn clonidine Acute recurrent RLE cellulitis intermittent recurrence ongoing since 2019. Treated at [facility] with IV unasyn recently H/o chronic venous stasis dermatitis Venous deplex negative for DVT. Xray R ankle neg for osseous abnormality including osteomyelitis initially treated with vanco, will transition to doxycycline seen by ID- may be more venous stasis she then cellulitis, recommend transition to p.o. doxycycline on discharge for 14 days and then PCN prophylaxis - outpatient follow up with ID keep leg elevated, use diallo wrap Hyperklemia prn lokelma follow BMP Acute on chronic normocytic anemia H/H trending down, no evidence of acute blood loss iron studies, b12, folate ok Insulin dependent Type 2 diabetes Sliding scale, ADA diet, continue Lantus HTN Continue amlodipine, isosorbide HLD Continue statin Diabetic neuropathy lyrica on hold to prevent sedation in the setting of worsening renal function gabapentin being weaned to prevent sedation Morbid obesity BMI 55.8 Discussed importance of weight management as this may be contributing to w orsening of other comorbidities DVT prophylaxis- lovenox Attending Dr. Tipton Full code patient requires ongoing inpatient hospitalization due to treatment of right lower extremity cellulitis, eval for anxiety, seen and evaluated by psychiatric team deemed to not have capacity to make her own decisions, healthcare proxy invoked. Pending safe discharge to short-term rehab. now requiring management of respiratory failure, chf Quality Stroke Does the patient have a stroke diagnosis?: No VTE Prior VTE?: No VTE Risk Level:: Medical - moderate - high VTE Device Contraindication: Treatment Not Indicated VTE Drug Contraindication: N/A - Med Ordered
[2022-04-05] MEDS: Insulin Lispro 100 UNIT/ML 3 ML VIAL SUBCUT ×3 (11:18→22:29)
[2022-04-05] MEDS: Enoxaparin Sodium 40 MG/0.4 ML SYRINGE SUBCUT (11:21)
[2022-04-05] MEDS: Gabapentin 100 MG CAPSULE 200 MG PO (11:24)
[2022-04-05] MEDS: Isosorbide Mononitrate 30 MG TAB.ER.24H PO (11:27)
[2022-04-05] MEDS: Metoprolol Succinate ER 50 MG TAB.ER.24H PO (11:28)
[2022-04-05] MEDS: Aspirin Enteric Coated 81 MG TABLET.DR PO (11:28)
[2022-04-05] MEDS: Cholecalciferol (Vitamin D3) 25 MCG TABLET PO (11:28)
[2022-04-05] MEDS: amLODIPine Besylate 10 MG TABLET PO (11:29)
[2022-04-05] MEDS: acetaZOLAMIDE 250 MG TABLET PO ×2 (11:29→20:12)
[2022-04-05] MEDS: risperiDONE 1 MG TABLET PO ×2 (11:29→20:12)
[2022-04-05] MEDS: Empagliflozin 10 MG TABLET PO (11:29)
[2022-04-05 11:36] LABS: Glucose, Whole Blood 214 mg/dL (60-115)
[2022-04-05] MEDS: Furosemide 200 MG in 0.9 % Sodium Chloride 80 ML IVCONT (12:53)
--- NOTE | 2022-04-05 14:43 | P.PNNP_ITS ---
Subjective Subjective Date of Service: 04/05/22 Principal diagnosis: Decompensated heart failure predominantly right-sided heart failure Interval history: follow up forAKI Able to standup Confused NA is high Good urine output Physical Exam Vital Signs: Vital Signs: Last Vital Signs Temp 98 F 04/05/22 10:56 Pulse 94 04/05/22 11:47 Resp 22 H 04/05/22 11:47 BP 157/70 H 04/05/22 10:56 Pulse Ox 92 04/05/22 10:56 O2 Del Method 04/05/22 10:56 O2 Flow Rate 6 04/05/22 07:01 BMI result Body Mass Index 55.8 Appearing in no acute distress lung sounds rales heart regular rate rhythm, clear S1, S2 positive bowel sounds, abdomen is soft, nontender neuro patient is alert , no focal deficits Objective Data Labs CBC & Chem 7: 04/05/22 05:37 04/05/22 05:37 Labs: Laboratory Results - last 24 hr 04/04/22 04/04/22 04/05/22 15:28 19:34 05:37 WBC 5.2 RBC 3.32 L Hgb 8.9 L Hct 30.7 L MCV 92.5 MCH 26.8 L MCHC 29.0 L RDW 18.0 H Plt Count 157 L MPV 10.3 Immature Gran % (Auto) 0.6 H Neut % (Auto) 65.8 Lymph % (Auto) 18.8 L [place] % (Auto) 9.6 Eos % (Auto) 4.8 H Baso % (Auto) 0.4 Lymph # (Auto) 1.0 L [place] # (Auto) 0.5 Eos # (Auto) 0.3 Baso # (Auto) 0.0 Abs Immat Gran (auto) 0.03 Absolute Neuts (auto) 3.4 Absolute Nucleated RBC 0.030 H Nucleated RBC % (auto) 0.6 H VBG pH VBG pCO2 VBG pO2 VBG HCO3 VBG O2 Saturation VBG Base Excess Sodium Potassium Chloride Carbon Dioxide Anion Gap BUN Creatinine Estim Creat Clear Calc Estimated GFR POC Glucose 196 H 205 H Random Glucose Calcium 04/05/22 04/05/22 04/05/22 05:37 05:38 06:58 WBC RBC Hgb Hct MCV MCH MCHC RDW Plt Count MPV Immature Gran % (Auto) Neut % (Auto) Lymph % (Auto) [place] % (Auto) Eos % (Auto) Baso % (Auto) Lymph # (Auto) [place] # (Auto) Eos # (Auto) Baso # (Auto) Abs Immat Gran (auto) Absolute Neuts (auto) Absolute Nucleated RBC Nucleated RBC % (auto) VBG pH 7.37 VBG pCO2 65 VBG pO2 127 VBG HCO3 38 H VBG O2 Saturation 99.0 VBG Base Excess 10.8 Sodium 149 H Potassium 4.4 Chloride 105 Carbon Dioxide 32 H Anion Gap 16 BUN 79 H Creatinine 1.34 Estim Creat Clear Calc 60.2 Estimated GFR 40 POC Glucose 124 H Random Glucose 135 H Calcium 8.7 04/05/22 10:54 WBC RBC Hgb Hct MCV MCH MCHC RDW Plt Count MPV Immature Gran % (Auto) Neut % (Auto) Lymph % (Auto) [place] % (Auto) Eos % (Auto) Baso % (Auto) Lymph # (Auto) [place] # (Auto) Eos # (Auto) Baso # (Auto) Abs Immat Gran (auto) Absolute Neuts (auto) Absolute Nucleated RBC Nucleated RBC % (auto) VBG pH VBG pCO2 VBG pO2 VBG HCO3 VBG O2 Saturation VBG Base Excess Sodium Potassium Chloride Carbon Dioxide Anion Gap BUN Creatinine Estim Creat Clear Calc Estimated GFR POC Glucose 214 H Random Glucose Calcium Procedures Date of Service Date of Service: 04/05/22 Assessment & Plan Assessment and plan (1) FELICIA (acute kidney injury): Status: Acute (2) Respiratory failure: Status: Acute (3) Acute on chronic combined systolic and diastolic CHF (congestive heart failure): Status: Acute Assessment and Plan: -61 year old female with FELICIA - Renal hypoperfusion in the setting of CHF -Baseline CKD 3 (Recently admitted to [facility] requiring temporary dialysis) -Acute on chronic respiratory failure with hypoxia and hypercarbia Likely multifactorial and secondary to DANIEL, obesity hypoventilation, COPD and CHF -Acute on chronic HFrEF Echo on 03/10 with grade 2 diastolic dysfunction with EF 25-35%. -Asthma/COPD with chronic respiratory failure on prn home O2 Cr is better Na restriction Fluid restriction d/w medical team - Lower lasix drip to 5 mg daily F/u Na level Diamox Avoid nephrotoxins F/u K - Last K acceptable - PRN Lolkelma RE - normocytic anemia-iron studies- Low % sat - Fe and Epo deficiency- Venofer ordered again today Thx Will follow Time Spent With Patient Time: Total time spent is greater than 50% in coordination of care (as documented) at patient's floor/unit and/or counseling patient: Progress Note: Quality Stroke Does the patient have a stroke diagnosis?: No
[2022-04-05] MEDS: Iron Sucrose Complex 200 MG in 0.9 % Sodium Chloride 100 ML 440 MG IV (15:31)
[2022-04-05 15:36] LABS: Glucose, Whole Blood 199 mg/dL (60-115)
[2022-04-05] MEDS: TiZANidine HCL 4 MG TABLET PO (19:30)
[2022-04-05] MEDS: Omeprazole 20 MG CAPSULE.DR PO (20:12)
[2022-04-05] MEDS: Atorvastatin Calcium 10 MG TABLET PO (20:12)
[2022-04-05] MEDS: cloNIDine HCL 0.1 MG TABLET PO (20:12)
[2022-04-05] MEDS: Insulin Glargine,Hum.rec.anlog 100 UNIT/ML 10 ML VIAL 50 UNIT SUBCUT (20:15)
[2022-04-05] MEDS: Nystatin Powder 15 GM BOTTLE 1 APPL TOPICAL (20:18)
[2022-04-05] MEDS: Fluticasone Propionate 100 MCG BLST.W.DEV 2 PUFF INHALE (20:35)
[2022-04-05] MEDS: 0.9 % Sodium Chloride Flush 3 ML SYRINGE IVFLUSH (20:53)
[2022-04-05 21:35] LABS: Glucose, Whole Blood 210 mg/dL (60-115)
[2022-04-06] VITALS (10 sets, daily range): BP systolic 112–142; BP diastolic 55–64; PULSE 67–82; RESP 14–20; TEMP 36.1–37.3; O2SAT 95–98
[2022-04-06 06:06] LABS: Venous Blood Gas Refer to POC result
[2022-04-06 06:07] LABS: VBG Base Excess 17.1 mmol/L; VBG HCO3 43 mmol/L (22-26); VBG pCO2 60 mmHg; VBG pH 7.46 (7.32-7.43); VBG pO2 77 mmHg
[2022-04-06] MEDS: Albuterol/Iprat 2.5/0.5MG 3 ML AMPUL.NEB INHALE ×2 (06:20→11:31)
[2022-04-06 06:22] LABS: Anion Gap 17 (12-20); Blood Urea Nitrogen 67 mg/dL (9-16); Calcium 8.6 mg/dL (8.4-10.2); Carbon Dioxide 35 mmol/L (22-29); Chloride 101 mmol/L (96-108); Creatinine Clr Calc Pharmacy 63.5; Estimated Glomerular Filt Rate 43; Glucose Random 141 mg/dL (60-115); Potassium 3.7 mmol/L (3.3-5.1); Sodium 149 mmol/L (135-145)
[2022-04-06 06:27] LABS: B Type Natriuretic Peptide 524 pg/mL (<100)
[2022-04-06 07:41] LABS: Glucose, Whole Blood 129 mg/dL (60-115)
[2022-04-06] MEDS: Fluticasone Propionate 100 MCG BLST.W.DEV 2 PUFF INHALE (08:31)
[2022-04-06] MEDS: Cholecalciferol (Vitamin D3) 25 MCG TABLET PO (08:43)
[2022-04-06] MEDS: acetaZOLAMIDE 250 MG TABLET PO (08:43)
[2022-04-06] MEDS: Empagliflozin 10 MG TABLET PO (08:43)
[2022-04-06] MEDS: FLUoxetine HCl 20 MG CAPSULE 40 MG PO (08:43)
[2022-04-06] MEDS: Isosorbide Mononitrate 30 MG TAB.ER.24H PO (08:44)
[2022-04-06] MEDS: risperiDONE 1 MG TABLET PO (08:44)
[2022-04-06] MEDS: Metoprolol Succinate ER 50 MG TAB.ER.24H PO (08:44)
[2022-04-06] MEDS: Gabapentin 100 MG CAPSULE 200 MG PO ×2 (08:44→11:13)
[2022-04-06] MEDS: Aspirin Enteric Coated 81 MG TABLET.DR PO (08:44)
[2022-04-06] MEDS: 0.9 % Sodium Chloride Flush 3 ML SYRINGE IVFLUSH ×3 (08:45→22:08)
[2022-04-06] MEDS: Spironolactone 25 MG TABLET PO (09:29)
[2022-04-06] MEDS: hydrALAZINE HCl 25 MG TABLET PO (09:30)
[2022-04-06] MEDS: Enoxaparin Sodium 40 MG/0.4 ML SYRINGE SUBCUT (09:31)
[2022-04-06 10:58] LABS: Glucose, Whole Blood 186 mg/dL (60-115)
[2022-04-06] MEDS: Insulin Lispro 100 UNIT/ML 3 ML VIAL SUBCUT ×3 (11:13→22:01)
--- NOTE | 2022-04-06 11:31 | P.PNIM_ITS ---
Subjective Subjective Date of Service: 04/06/22 Interval History: follow up for cellulitis, panic, CHF, respiratory failure Sitting in her chair, alert to person, place, time, did not know the month Apparently was agitated overnight Review of Systems Review of Systems: Yes all other systems are reviewed and are negative Constitutional Constitutional: Denies chills and Denies fever(s) Cardiovascular Cardiovascular: Denies chest pain, Denies palpitations and Denies dyspnea Respiratory Respiratory: Denies cough and Denies dyspnea Gastrointestinal Gastrointestinal: Denies abdominal pain Endocrine Endocrine: Denies palpitations Physical Exam Vital Signs: Vital Signs: Last Vital Signs Temp 98.3 F 04/06/22 10:52 Pulse 72 04/06/22 10:52 Resp 18 04/06/22 10:52 BP 135/63 04/06/22 10:52 Pulse Ox 96 04/06/22 10:52 O2 Del Method 04/06/22 10:52 O2 Flow Rate 4 04/06/22 10:52 BMI result Body Mass Index 55.8 Objective Data Active Medications Acetaminophen (Acetaminophen 325 Mg Tablet) 650 mg PO Q6H PRN PRN Reason: Pain, Mild (Pain Scale 1-3) Last Admin: 04/05/22 02:56 Dose: 650 mg Documented By: MORTEZA Acetazolamide (Acetazolamide 250 Mg Tablet) 250 mg PO BID [facility] Last Admin: 04/06/22 08:43 Dose: 250 mg Documented By: CHRISTEL Albuterol/Ipratropium (Albuterol/Iprat 2.5/0.5mg 3 Ml Ampul.Neb) 3 ml INHALE RQ6H [facility] Last Admin: 04/06/22 11:31 Dose: 3 ml Documented By: OLIVIA Aspirin (Aspirin Enteric Coated 81 Mg Tablet.) 81 mg PO DAILY [facility] Last Admin: 04/06/22 08:44 Dose: 81 mg Documented By: CHRISTEL Atorvastatin Calcium (Atorvastatin Calcium 10 Mg Tablet) 10 mg PO BEDTIME [facility] Last Admin: 04/05/22 20:12 Dose: 10 mg Documented By: MORTEZA Clonidine HCl (Clonidine Hcl 0.1 Mg Tablet) 0.1 mg PO TID PRN; Protocol PRN Reason: hyperarousal, anxiety, panic Last Admin: 04/05/22 20:12 Dose: 0.1 mg Documented By: MORTEZA Doxycycline Hyclate (Doxycycline Hyclate 100 Mg Tablet) 100 mg PO Q12H [facility] Last Admin: 04/06/22 05:02 Dose: 100 mg Documented By: MORTEZA Empagliflozin (Empagliflozin 10 Mg Tablet) 10 mg PO DAILY [facility] Last Admin: 04/06/22 08:43 Dose: 10 mg Documented By: CHRISTEL Enoxaparin Sodium (Enoxaparin Sodium 40 Mg/0.4 Ml Syringe) 40 mg SUBCUT Q24H [facility] Last Admin: 04/06/22 09:31 Dose: 40 mg Documented By: CHRISTEL Fluoxetine HCl (Fluoxetine Hcl 20 Mg Capsule) 40 mg PO DAILY [facility] Last Admin: 04/06/22 08:43 Dose: 40 mg Documented By: CHRISTEL Fluticasone Propionate (Fluticasone Propionate 100 Mcg Blst.W.Dev) 2 puff INHALE RBID [facility] Last Admin: 04/06/22 08:31 Dose: 2 puff Documented By: OLIVIA Gabapentin (Gabapentin 400 Mg Capsule) 800 mg PO BEDTIME [facility] Last Admin: 04/02/22 20:25 Dose: 800 mg Documented By: KWASI Gabapentin (Gabapentin 100 Mg Capsule) 200 mg PO BID@0900,1200 [facility] Last Admin: 04/06/22 11:13 Dose: 200 mg Documented By: CHRISTEL Hydralazine HCl (Hydralazine Hcl 25 Mg Tablet) 25 mg PO BID [facility]; Protocol Last Admin: 04/06/22 09:30 Dose: 25 mg Documented By: CHRISTEL Insulin Glargine (Insulin Glargine,Hum.Rec.Anlog 100 Unit/Ml 10 Ml Vial) 50 unit SUBCUT BEDTIME [facility] Last Admin: 04/05/22 20:15 Dose: 50 unit Documented By: MORTEZA Insulin Human Lispro (Insulin Lispro 100 Unit/Ml 3 Ml Vial) 0 unit SUBCUT QIDACHS [facility]; Protocol Last Admin: 04/06/22 11:13 Dose: 2 unit Documented By: CHRISTEL Isosorbide Mononitrate (Isosorbide Mononitrate 30 Mg Tab.Er.24h) 30 mg PO DAILY [facility]; Protocol Last Admin: 04/06/22 08:44 Dose: 30 mg Documented By: CHRISTEL Meclizine HCl (Meclizine Hcl 25 Mg Tablet) 25 mg PO TID PRN PRN Reason: Dizziness Last Admin: 04/01/22 16:09 Dose: 25 mg Documented By: EZRA Metoprolol Succinate (Metoprolol Succinate Er 50 Mg Tab.Er.24h) 50 mg PO DAILY [facility]; Protocol Last Admin: 04/06/22 08:44 Dose: 50 mg Documented By: CHRISTEL Nystatin (Nystatin Powder 15 Gm Bottle) 1 appl TOPICAL BID [facility]; Protocol Last Admin: 04/06/22 09:35 Dose: Not Given Documented By: CHRISTEL Non-Admin Reason: Patient Refused Omeprazole (Omeprazole 20 Mg Capsule.) 20 mg PO BEDTIME [facility] Last Admin: 04/05/22 20:12 Dose: 20 mg Documented By: MORTEZA Pharmacy Consult (Consult Rx Perform Med Rec) 1 each MISCELLANE ONCE PRN PRN Reason: Consult order Polyethylene Glycol (Polyethylene Glycol 3350 17 Gm Powd.Pack) 17 gm PO DAILY PRN PRN Reason: constipation Pregabalin (Pregabalin 100 Mg Capsule) 100 mg PO BID [facility] Last Admin: 04/03/22 09:26 Dose: 100 mg Documented By: EZRA Risperidone (Risperidone 1 Mg Tablet) 1 mg PO BID [facility] Last Admin: 04/06/22 08:44 Dose: 1 mg Documented By: CHRISTEL Sodium Chloride (0.9 % Sodium Chloride Flush 3 Ml Syringe) 3 ml IVFLUSH QSHIFT [facility] Last Admin: 04/06/22 08:45 Dose: 3 ml Documented By: CHRISTEL Spironolactone (Spironolactone 25 Mg Tablet) 25 mg PO DAILY [facility]; Protocol Last Admin: 04/06/22 09:29 Dose: 25 mg Documented By: CHRISTEL Tizanidine HCl (Tizanidine Hcl 4 Mg Tablet) 4 mg PO DAILY@1600 [facility] Last Admin: 04/05/22 19:30 Dose: 4 mg Documented By: MORTEZA Vitamin D (Cholecalciferol (Vitamin D3) 25 Mcg Tablet) 25 mcg PO DAILY [facility] Last Admin: 04/06/22 08:43 Dose: 25 mcg Documented By: CHRISTEL Labs CBC & Chem 7: 04/05/22 05:37 04/06/22 05:55 Labs: Laboratory Results - last 24 hr 04/05/22 04/05/22 04/05/22 10:54 15:17 21:31 VBG pH VBG pCO2 VBG pO2 VBG HCO3 VBG O2 Saturation VBG Base Excess Anion Gap Estim Creat Clear Calc Estimated GFR POC Glucose 214 H 199 H 210 H Random Glucose Calcium B-Natriuretic Peptide 04/06/22 04/06/22 04/06/22 05:55 05:55 06:01 VBG pH 7.46 H VBG pCO2 60 VBG pO2 77 VBG HCO3 43 H VBG O2 Saturation 96.0 VBG Base Excess 17.1 Anion Gap 17 Estim Creat Clear Calc 63.5 Estimated GFR 43 POC Glucose Random Glucose 141 H Calcium 8.6 B-Natriuretic Peptide 524 H 04/06/22 04/06/22 07:32 10:50 VBG pH VBG pCO2 VBG pO2 VBG HCO3 VBG O2 Saturation VBG Base Excess Anion Gap Estim Creat Clear Calc Estimated GFR POC Glucose 129 H 186 H Random Glucose Calcium B-Natriuretic Peptide Assessment and Plan (1) DANIEL (obstructive sleep apnea): Status: Acute (2) Respiratory failure: Status: Acute (3) Morbid obesity: Status: Acute (4) NICM (nonischemic cardiomyopathy): Status: Acute (5) Acute respiratory failure with hypoxia and hypercapnia: Status: Acute Plan 61 year old female with history of 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 Acute on chronic respiratory failure with hypoxia and hypercarbia Likely multifactorial and secondary to DANIEL, obesity hypoventilation, COPD and CHF Acute on chronic HFrEF Recent admission to [facility]. Echo on 03/10 with grade 2 diastolic dysfunction with EF 25-35%. Lasix drip at 10 mg an hour, stopped Cardiology following Strict intake and output Diamox b.i.d. Check BNP tomorrow -7.6L Asthma/COPD with chronic respiratory failure on prn home O2 Nocturnal CPAP, tolerated overnight, apparently at home has difficulties with compliance Scheduled DuoNebs FELICIA on CKD 3. Resolved Recently admitted to [facility] requiring temporary dialysis Creatinine trending down Nephrology following Depression/anxiety with agitation Patient with episodes of what she describes as severe anxiety/panic. still having shouting/anxiety episodes does not meet criteria for IP psych at this time however was deemed not competent to make her own decisions and healthcare proxy will be invoked which is her daughter continue prozac, risperidal and prn clonidine Acute recurrent RLE cellulitis intermittent recurrence ongoing since 2019. Treated at [facility] with IV unasyn recently H/o chronic venous stasis dermatitis Venous deplex negative for DVT. Xray R ankle neg for osseous abnormality including osteomyelitis initially treated with vanco, will transition to doxycycline seen by ID- may be more venous stasis she then cellulitis, recommend transition to p.o. doxycycline on discharge for 14 days and then PCN prophylaxis - outpatient follow up with ID keep leg elevated, use diallo wrap Hyperklemia prn lokelma follow BMP Acute on chronic normocytic anemia H/H trending down, no evidence of acute blood loss iron studies, b12, folate ok Insulin dependent Type 2 diabetes Sliding scale, ADA diet, continue Lantus HTN Continue amlodipine, isosorbide HLD Continue statin Diabetic neuropathy lyrica on hold to prevent sedation in the setting of worsening renal function gabapentin being weaned to prevent sedation Morbid obesity BMI 55.8 Discussed importance of weight management as this may be contributing to worsening of other comorbidities DVT prophylaxis- lovejessicax Attending Dr. Tipton Full code patient requires ongoing inpatient hospitalization due to treatment of right lower extremity cellulitis, eval for anxiety, seen and evaluated by psychiatric team deemed to not have capacity to make her own decisions, healthcare proxy invoked. Pending safe discharge to short-term rehab. now requiring management of respiratory failure, chf Quality Stroke Does the patient have a stroke diagnosis?: No VTE Prior VTE?: No VTE Risk Level:: Medical - moderate - high VTE Device Contraindication: Treatment Not Indicated VTE Drug Contraindication: N/A - Med Ordered
--- NOTE | 2022-04-06 11:43 | MHC.CM.PN ---
[facility] SHOWING INTEREST UPDATES SENT. NO OTHER BED OFFERS OR INTEREST OF THIS NOTE
--- NOTE | 2022-04-06 14:38 | MHC.CM.PN ---
CALL FROM [facility] ([facility]) ASKING ABOUT POTENTIAL DC DATE. RN MADE AWARE THAT WE ARE CURRENTLY SEARCHING FOR A STR BED WITH NO LUCK. POSSIBLE HOME WITH INCREASE IN [employer] HOURS SECURED. [facility] FOLLOWING
[2022-04-06] MEDS: TiZANidine HCL 4 MG TABLET PO (14:49)
--- NOTE | 2022-04-06 14:57 | PM.PNNEP ---
Subjective Subjective Date of Service: 04/06/22 Principal diagnosis: Decompensated heart failure predominantly right-sided heart failure Interval history: follow up for cellulitis, panic, CHF, respiratory failure Sitting in her chair, alert to person, place, time, did not know the month Apparently was agitated overnight Physical Exam Vital Signs: Vital Signs: Last Vital Signs Temp 98.3 F 04/06/22 10:52 Pulse 77 04/06/22 11:33 Resp 20 04/06/22 11:33 BP 135/63 04/06/22 10:52 Pulse Ox 96 04/06/22 10:52 O2 Del Method 04/06/22 10:52 O2 Flow Rate 4 04/06/22 10:52 BMI result Body Mass Index 55.8 ?? Appearing in n o acute distress ? lung sounds rales ?heart regular rat e rhythm, clear? S 1, S2 ?positive nelly wel sounds, abdome n is soft, nontend er ?neuro patient is alert , no foca l deficits Objective Data Labs CBC & Chem 7: 04/05/22 05:37 04/06/22 05:55 Labs: Laboratory Results - last 24 hr 04/05/22 04/05/22 04/06/22 15:17 21:31 05:55 VBG pH VBG pCO2 VBG pO2 VBG HCO3 VBG O2 Saturation VBG Base Excess Sodium 149 H Potassium 3.7 Chloride 101 Carbon Dioxide 35 H Anion Gap 17 BUN 67 H Creatinine 1.27 Estim Creat Clear Calc 63.5 Estimated GFR 43 POC Glucose 199 H 210 H Random Glucose 141 H Calcium 8.6 B-Natriuretic Peptide 04/06/22 04/06/22 04/06/22 05:55 06:01 07:32 VBG pH 7.46 H VBG pCO2 60 VBG pO2 77 VBG HCO3 43 H VBG O2 Saturation 96.0 VBG Base Excess 17.1 Sodium Potassium Chloride Carbon Dioxide Anion Gap BUN Creatinine Estim Creat Clear Calc Estimated GFR POC Glucose 129 H Random Glucose Calcium B-Natriuretic Peptide 524 H 04/06/22 10:50 VBG pH VBG pCO2 VBG pO2 VBG HCO3 VBG O2 Saturation VBG Base Excess Sodium Potassium Chloride Carbon Dioxide Anion Gap BUN Creatinine Estim Creat Clear Calc Estimated GFR POC Glucose 186 H Random Glucose Calcium B-Natriuretic Peptide Procedures Date of Service Date of Service: 04/06/22 Assessment & Plan Assessment and plan (1) FELICIA (acute kidney injury): Status: Acute (2) Respiratory failure: Status: Acute (3) Acute on chronic combined systolic and diastolic CHF (congestive heart failure): Status: Acute Assessment and Plan: -61 year old female with FELICIA - Renal hypoperfusion in the setting of CHF -Baseline CKD 3 (Recently admitted to [facility] requiring temporary dialysis) -Acute on chronic respiratory failure with hypoxia and hypercarbia Likely multifactorial and secondary to DANIEL, obesity hypoventilation, COPD and CHF -Acute on chronic HFrEF Echo on 03/10 with grade 2 diastolic dysfunction with EF 25-35%. -Asthma/COPD with chronic respiratory failure on prn home O2 Cr is better Na restriction Fluid restriction - 2000 ml Off Lasix drip - Can start Bumex 2 mg in AM and 1 mg in PM ( Pt was on 2 mg daily at home ) F/u Na level Diamox / Aldactone Avoid nephrotoxins RE - normocytic anemia-iron studies- Low % sat - Fe and Epo deficiency- Venofer ordered again today - 3rddose 100 + 200 + 200 Thx Will follow Time Spent With Patient Time: Total time spent is greater than 50% in coordination of care (as documented) at patient's floor/unit and/or counseling patient: Progress Note: Quality Stroke Does the patient have a stroke diagnosis?: No
[2022-04-06 16:44] LABS: Glucose, Whole Blood 200 mg/dL (60-115)
[2022-04-06] MEDS: Iron Sucrose Complex 200 MG in 0.9 % Sodium Chloride 100 ML 440 MG IV (16:59)
[2022-04-06 20:18] LABS: Glucose, Whole Blood 182 mg/dL (60-115)
[2022-04-06] MEDS: Insulin Glargine,Hum.rec.anlog 100 UNIT/ML 10 ML VIAL 50 UNIT SUBCUT (22:01)
[2022-04-07] VITALS (8 sets, daily range): BP systolic 105–141; BP diastolic 54–64; PULSE 68–94; RESP 13–20; TEMP 35.9–36.7; O2SAT 92–100; BMI 55.8
[2022-04-07 07:38] LABS: Glucose, Whole Blood 127 mg/dL (60-115)
[2022-04-07] MEDS: 0.9 % Sodium Chloride Flush 3 ML SYRINGE IVFLUSH ×2 (08:26→20:57)
[2022-04-07] MEDS: FLUoxetine HCl 20 MG CAPSULE 40 MG PO (08:27)
[2022-04-07] MEDS: risperiDONE 1 MG TABLET PO ×2 (08:27→20:31)
[2022-04-07] MEDS: Aspirin Enteric Coated 81 MG TABLET.DR PO (08:27)
[2022-04-07] MEDS: Isosorbide Mononitrate 30 MG TAB.ER.24H PO (08:27)
[2022-04-07] MEDS: Metoprolol Succinate ER 50 MG TAB.ER.24H PO (08:27)
[2022-04-07] MEDS: acetaZOLAMIDE 250 MG TABLET PO ×2 (08:27→20:31)
[2022-04-07] MEDS: Cholecalciferol (Vitamin D3) 25 MCG TABLET PO (08:27)
[2022-04-07] MEDS: hydrALAZINE HCl 25 MG TABLET PO (08:28)
[2022-04-07] MEDS: Spironolactone 25 MG TABLET PO (08:28)
[2022-04-07] MEDS: Empagliflozin 10 MG TABLET PO (08:29)
[2022-04-07] MEDS: Gabapentin 100 MG CAPSULE 200 MG PO ×2 (08:29→12:10)
--- NOTE | 2022-04-07 09:31 | HO.PM.IMPN ---
Subjective Subjective Date of Service: 04/07/22 Interval History: follow up for cellulitis, panic, CHF, respiratory failure Resting in bed Review of Systems Review of Systems: Yes all other systems are reviewed and are negative Constitutional Constitutional: Denies chills and Denies fever(s) Cardiovascular Cardiovascular: Denies chest pain, Denies palpitations and Denies dyspnea Respiratory Respiratory: Denies cough and Denies dyspnea Gastrointestinal Gastrointestinal: Denies abdominal pain Endocrine Endocrine: Denies palpitations Physical Exam Vital Signs: Vital Signs: Last Vital Signs Temp 96.7 F L 04/07/22 07:00 Pulse 94 04/07/22 07:00 Resp 13 04/07/22 07:00 BP 122/64 04/07/22 07:00 Pulse Ox 92 04/07/22 07:00 O2 Del Method 04/07/22 07:00 O2 Flow Rate 4.0 04/07/22 07:00 BMI result Body Mass Index 55.8 Appearing in no acute distress lung sounds are clear to auscultation heart regular rate rhythm, clear S1, S2 positive bowel sounds, abdomen is soft, nontender neuro patient is alert x3, no focal deficits Objective Data Active Medications Acetaminophen (Acetaminophen 325 Mg Tablet) 650 mg PO Q6H PRN PRN Reason: Pain, Mild (Pain Scale 1-3) Last Admin: 04/05/22 02:56 Dose: 650 mg Documented By: MORTEZA Acetazolamide (Acetazolamide 250 Mg Tablet) 250 mg PO BID [facility] Last Admin: 04/07/22 08:27 Dose: 250 mg Documented By: BIRD Albuterol/Ipratropium (Albuterol/Iprat 2.5/0.5mg 3 Ml Ampul.Neb) 3 ml INHALE RQ6H [facility] Last Admin: 04/07/22 06:04 Dose: Not Given Documented By: XIOMARA Non-Admin Reason: Patient Refused Aspirin (Aspirin Enteric Coated 81 Mg Tablet.) 81 mg PO DAILY [facility] Last Admin: 04/07/22 08:27 Dose: 81 mg Documented By: BIRD Atorvastatin Calcium (Atorvastatin Calcium 10 Mg Tablet) 10 mg PO BEDTIME [facility] Last Admin: 04/06/22 22:06 Dose: Not Given Documented By: IZABELLA Non-Admin Reason: Patient Refused Bumetanide (Bumetanide 1 Mg Tablet) 2 mg PO DAILY [facility]; Protocol Last Admin: 04/07/22 08:27 Dose: 2 mg Documented By: BIRD Bumetanide (Bumetanide 1 Mg Tablet) 1 mg PO BEDTIME [facility]; Protocol Clonidine HCl (Clonidine Hcl 0.1 Mg Tablet) 0.1 mg PO TID PRN; Protocol PRN Reason: hyperarousal, anxiety, panic Last Admin: 04/05/22 20:12 Dose: 0.1 mg Documented By: MORTEZA Doxycycline Hyclate (Doxycycline Hyclate 100 Mg Tablet) 100 mg PO Q12H [facility] Last Admin: 04/07/22 05:53 Dose: 100 mg Documented By: IZABELLA Empagliflozin (Empagliflozin 10 Mg Tablet) 10 mg PO DAILY [facility] Last Admin: 04/07/22 08:29 Dose: 10 mg Documented By: BIRD Enoxaparin Sodium (Enoxaparin Sodium 40 Mg/0.4 Ml Syringe) 40 mg SUBCUT Q24H [facility] Last Admin: 04/06/22 09:31 Dose: 40 mg Documented By: CHRISTEL Fluoxetine HCl (Fluoxetine Hcl 20 Mg Capsule) 40 mg PO DAILY [facility] Last Admin: 04/07/22 08:27 Dose: 40 mg Documented By: BIRD Fluticasone Propionate (Fluticasone Propionate 100 Mcg Blst.W.Dev) 2 puff INHALE RBID [facility] Last Admin: 04/07/22 08:16 Dose: Not Given Documented By: DAISY Non-Admin Reason: Patient Refused Gabapentin (Gabapentin 400 Mg Capsule) 800 mg PO BEDTIME [facility] Last Admin: 04/02/22 20:25 Dose: 800 mg Documented By: KWASI Gabapentin (Gabapentin 100 Mg Capsule) 200 mg PO BID@0900,1200 [facility] Last Admin: 04/07/22 08:29 Dose: 200 mg Documented By: BIRD Hydralazine HCl (Hydralazine Hcl 25 Mg Tablet) 25 mg PO BID [facility]; Protocol Last Admin: 04/07/22 08:28 Dose: 25 mg Documented By: BIRD Insulin Glargine (Insulin Glargine,Hum.Rec.Anlog 100 Unit/Ml 10 Ml Vial) 50 unit SUBCUT BEDTIME [facility] Last Admin: 04/06/22 22:01 Dose: 50 unit Documented By: IZABELLA Insulin Human Lispro (Insulin Lispro 100 Unit/Ml 3 Ml Vial) 0 unit SUBCUT QIDACHS [facility]; Protocol Last Admin: 04/07/22 08:02 Dose: Not Given Documented By: BIRD Non-Admin Reason: No Insulin Coverage Isosorbide Mononitrate (Isosorbide Mononitrate 30 Mg Tab.Er.24h) 30 mg PO DAILY [facility]; Protocol Last Admin: 04/07/22 08:27 Dose: 30 mg Documented By: BIRD Meclizine HCl (Meclizine Hcl 25 Mg Tablet) 25 mg PO TID PRN PRN Reason: Dizziness Last Admin: 04/01/22 16:09 Dose: 25 mg Documented By: EZRA Metoprolol Succinate (Metoprolol Succinate Er 50 Mg Tab.Er.24h) 50 mg PO DAILY [facility]; Protocol Last Admin: 04/07/22 08:27 Dose: 50 mg Documented By: BIRD Nystatin (Nystatin Powder 15 Gm Bottle) 1 appl TOPICAL BID [facility]; Protocol Last Admin: 04/06/22 22:06 Dose: Not Given Documented By: IZABELLA Non-Admin Reason: Patient Refused Omeprazole (Omeprazole 20 Mg Capsule.) 20 mg PO BEDTIME [facility] Last Admin: 04/06/22 22:06 Dose: Not Given Documented By: IZABELLA Non-Admin Reason: Patient Refused Pharmacy Consult (Consult Rx Perform Med Rec) 1 each MISCELLANE ONCE PRN PRN Reason: Consult order Polyethylene Glycol (Polyethylene Glycol 3350 17 Gm Powd.Pack) 17 gm PO DAILY PRN PRN Reason: constipation Pregabalin (Pregabalin 100 Mg Capsule) 100 mg PO BID [facility] Last Admin: 04/03/22 09:26 Dose: 100 mg Documented By: EZRA Risperidone (Risperidone 1 Mg Tablet) 1 mg PO BID [facility] Last Admin: 04/07/22 08:27 Dose: 1 mg Documented By: BIRD Sodium Chloride (0.9 % Sodium Chloride Flush 3 Ml Syringe) [facility] Admin: 04/07/22 08:26 Dose: 3 ml Documented By: BIRD Spironolactone (Spironolactone 25 Mg Tablet) 25 mg PO DAILY [facility]; Protocol Last Admin: 04/07/22 08:28 Dose: 25 mg Documented By: BIRD Tizanidine HCl (Tizanidine Hcl 4 Mg Tablet) 4 mg PO DAILY@1600 [facility] Last Admin: 04/06/22 14:49 Dose: 4 mg Documented By: CHRISTEL Vitamin D (Cholecalciferol (Vitamin D3) 25 Mcg Tablet) 25 mcg PO DAILY [facility] Last Admin: 04/07/22 08:27 Dose: 25 mcg Documented By: BIRD Labs CBC & Chem 7: 04/07/22 09:52 04/07/22 09:52 Labs: Laboratory Results - last 24 hr 04/06/22 04/06/22 04/06/22 10:50 16:40 19:42 POC Glucose 186 H 200 H 182 H 04/07/22 07:34 POC Glucose 127 H Assessment and Plan (1) DANIEL (obstructive sleep apnea): Status: Acute (2) Respiratory failure: Status: Acute (3) Morbid obesity: Status: Acute (4) NICM (nonischemic cardiomyopathy): Status: Acute (5) Acute respiratory failure with hypoxia and hypercapnia: Status: Acute Plan 61 year old female with history of 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 Acute on chronic respiratory failure with hypoxia and hypercarbia Likely multifactorial and secondary to DANIEL, obesity hypoventilation, COPD and CHF Acute on chronic HFrEF Recent admission to [facility]. Echo on 03/10 with grade 2 diastolic dysfunction with EF 25-35%. Lasix drip at 10 mg an hour, stopped Cardiology following Strict intake and output Diamox b.i.d. -7.6L Started bumex 2mg daily, 1mg at bedtime Asthma/COPD with chronic respiratory failure on prn home O2 Nocturnal CPAP, tolerated overnight, apparently at home has difficulties with compliance Scheduled DuoNebs FELICIA on CKD 3. Resolved Recently admitted to [facility] requiring temporary dialysis Creatinine trending down Nephrology following Depression/anxiety with agitation Patient with episodes of what she describes as severe anxiety/panic. still having shouting/anxiety episodes does not meet criteria for IP psych at this time however was deemed not competent to make her own decisions and healthcare proxy will be invoked which is her daughter continue prozac, risperidal and prn clonidine Acute recurrent RLE cellulitis intermittent recurrence ongoing since 2019. Treated at [facility] with IV unasyn recently H/o chronic venous stasis dermatitis Venous deplex negative for DVT. Xray R ankle neg for osseous abnormality including osteomyelitis initially treated with vanco, will transition to doxycycline seen by ID- may be more venous stasis she then cellulitis, recommend transition to p.o. doxycycline on discharge for 14 days and then PCN prophylaxis - outpatient follow up with ID keep leg elevated, use diallo wrap Hyperklemia prn lokelma follow BMP Acute on chronic normocytic anemia H/H trending down, no evidence of acute blood loss iron studies, b12, folate ok Insulin dependent Type 2 diabetes Sliding scale, ADA diet, continue Lantus HTN Continue amlodipine, isosorbide HLD Continue statin Diabetic neuropathy lyrica on hold to prevent sedation in the setting of worsening renal function gabapentin being weaned to prevent sedation Morbid obesity BMI 55.8 Discussed importance of weight management as this may be contributing to worsening of other comorbidities DVT prophylaxis- lovedurga Attending Dr. Sharma Full code patient requires ongoing inpatient hospitalization due to treatment of right lower extremity cellulitis, eval for anxiety, seen and evaluated by psychiatric team deemed to not have capacity to make her own decisions, healthcare proxy invoked. Pending safe discharge to short-term rehab. now requiring management of respiratory failure, chf Quality Stroke Does the patient have a stroke diagnosis?: No VTE Prior VTE?: No VTE Risk Level:: Medical - moderate - high VTE Device Contraindication: Treatment Not Indicated VTE Drug Contraindication: N/A - Med Ordered
[2022-04-07 09:58] LABS: MANUAL DIFF FLAG NO
[2022-04-07 10:03] LABS: Basophils Percent Auto 0.3 % (0-2); Eosinophils Absolute Auto 0.3 X10*3/uL (0.0-0.4); Eosinophils Percent Auto 5.5 % (0-4); Hematocrit 33.5 % (37.0-47.0); Hemoglobin 9.7 g/dl (12.0-16.0); Imm Gran Abs Auto 0.03 X10*3/uL (0.00-0.03); Imm Gran Pct Auto 0.5 % (0.0-0.4); Lymphocytes Absolute Auto 0.8 X10*3/uL (1.2-4.9); Lymphocytes Percent Auto 13.9 % (20-40); Mean Corpuscular Hemoglobin 26.8 pg (27.0-33.0); Mean Corpuscular Volume 92.5 fL (80.0-98.0); Mean Platelet Volume 9.6 fL (9.4-12.3); Monocytes Absolute Auto 0.7 X10*3/uL (0.1-1.2); Monocytes Percent Auto 11.5 % (2-11); Neutrophils Absolute Auto 4.1 x10*3/uL (2.0-8.3); Neutrophils Percent Auto 68.3 % (45-73); Platelet Count 150 X10*3/uL (160-400); Red Blood Count 3.62 X10*6/uL (4.20-5.50); Red Cell Distribution Width 17.7 % (11.0-16.0)
[2022-04-07 10:19] LABS: Anion Gap 15 (12-20); Blood Urea Nitrogen 53 mg/dL (9-16); Calcium 8.4 mg/dL (8.4-10.2); Carbon Dioxide 35 mmol/L (22-29); Chloride 102 mmol/L (96-108); Creatinine Clr Calc Pharmacy 68.3; Estimated Glomerular Filt Rate 47; Glucose Random 123 mg/dL (60-115); Potassium 3.5 mmol/L (3.3-5.1); Sodium 148 mmol/L (135-145)
[2022-04-07 10:25] LABS: B Type Natriuretic Peptide 230 pg/mL (<100)
[2022-04-07 11:17] LABS: Complement C3 122 mg/dL (83-193)
[2022-04-07 11:24] LABS: Glucose, Whole Blood 172 mg/dL (60-115)
[2022-04-07] MEDS: Insulin Lispro 100 UNIT/ML 3 ML VIAL SUBCUT ×3 (12:10→20:32)
[2022-04-07] MEDS: cloNIDine HCL 0.1 MG TABLET PO ×2 (12:43→20:32)
--- NOTE | 2022-04-07 13:38 | PM.PNNEP ---
Subjective Subjective Date of Service: 04/07/22 Principal diagnosis: Decompensated heart failure predominantly right-sided heart failure Interval history: Seen adn examioned,e vents noted Physical Exam Vital Signs: Vital Signs: Last Vital Signs Temp 96.9 F 04/07/22 11:00 Pulse 82 04/07/22 11:00 Resp 15 04/07/22 11:00 BP 108/55 L 04/07/22 11:00 Pulse Ox 100 04/07/22 11:00 O2 Del Method 04/07/22 11:00 O2 Flow Rate 4.0 04/07/22 11:00 BMI result Body Mass Index 55.8 Const: Other: difficult to arouse, but once awake, alert and talking General: comfortable and no acute distress Nutritional Appearance: obese Resp: Other: diminished Effort & Inspection: no respiratory distress and no use of accessory muscles Cardio: Rate: regular rate Heart sounds: S1 normal heart sound present and S2 normal heart sound present GI: Inspection: No distended and Yes obesity Palpation (GI): Soft to palpation and nontender Extrem: Other: leg swelling improving; b/l UE edema improving Objective Data Labs CBC & Chem 7: 04/07/22 09:52 04/07/22 09:52 Labs: Laboratory Results - last 24 hr 04/04/22 04/06/22 04/06/22 06:19 16:40 19:42 WBC RBC Hgb Hct MCV MCH MCHC RDW Plt Count MPV Immature Gran % (Auto) Neut % (Auto) Lymph % (Auto) [place] % (Auto) Eos % (Auto) Baso % (Auto) Lymph # (Auto) [place] # (Auto) Eos # (Auto) Baso # (Auto) Abs Immat Gran (auto) Absolute Neuts (auto) Absolute Nucleated RBC Nucleated RBC % (auto) Sodium Potassium Chloride Carbon Dioxide Anion Gap BUN Creatinine Estim Creat Clear Calc Estimated GFR POC Glucose 200 H 182 H Random Glucose Calcium B-Natriuretic Peptide Complement C3 122 Complement C4 22 04/07/22 04/07/22 04/07/22 07:34 09:52 09:52 WBC 6.0 RBC 3.62 L Hgb 9.7 L Hct 33.5 L MCV 92.5 MCH 26.8 L MCHC 29.0 L RDW 17.7 H Plt Count 150 L MPV 9.6 Immature Gran % (Auto) 0.5 H Neut % (Auto) 68.3 Lymph % (Auto) 13.9 L [place] % (Auto) 11.5 H Eos % (Auto) 5.5 H Baso % (Auto) 0.3 Lymph # (Auto) 0.8 L [place] # (Auto) 0.7 Eos # (Auto) 0.3 Baso # (Auto) 0.0 Abs Immat Gran (auto) 0.03 Absolute Neuts (auto) 4.1 Absolute Nucleated RBC 0.000 Nucleated RBC % (auto) 0.0 Sodium 148 H Potassium 3.5 Chloride 102 Carbon Dioxide 35 H Anion Gap 15 BUN 53 H Creatinine 1.18 Estim Creat Clear Calc 68.3 Estimated GFR 47 POC Glucose 127 H Random Glucose 123 H Calcium 8.4 B-Natriuretic Peptide Complement C3 Complement C4 04/07/22 04/07/22 09:52 11:05 WBC RBC Hgb Hct MCV MCH MCHC RDW Plt Count MPV Immature Gran % (Auto) Neut % (Auto) Lymph % (Auto) [place] % (Auto) Eos % (Auto) Baso % (Auto) Lymph # (Auto) [place] # (Auto) Eos # (Auto) Baso # (Auto) Abs Immat Gran (auto) Absolute Neuts (auto) Absolute Nucleated RBC Nucleated RBC % (auto) Sodium Potassium Chloride Carbon Dioxide Anion Gap BUN Creatinine Estim Creat Clear Calc Estimated GFR POC Glucose 172 H Random Glucose Calcium B-Natriuretic Peptide 230 H Complement C3 Complement C4 Procedures Date of Service Date of Service: 04/07/22 Assessment & Plan Assessment and plan (1) FELICIA (acute kidney injury): Status: Acute (2) Respiratory failure: Status: Acute (3) Acute on chronic combined systolic and diastolic CHF (congestive heart failure): Status: Acute Assessment and Plan: -61 year old female with FELICIA - Renal hypoperfusion in the setting of CHF 1. FELICIA resolved; h/o recurrent FELICIA and req acute HD in past for HyperK and FELICIA 2. CKD 3a 3. HyperK: resolved for now 4. Hypervol?CHF: maintained on diuretics 5. HyperNa REC: cont to track renal func and K; encourage inr PO fluids; avoid NToxins Time Spent With Patient Time: Total time spent is greater than 50% in coordination of care (as documented) at patient's floor/unit and/or counseling patient: Progress Note: Quality Stroke Does the patient have a stroke diagnosis?: No
--- NOTE | 2022-04-07 13:46 | MHC.CM.PN ---
Emr reviewed, no response from [place] since 04/06, SNF referral updated however no bed offers, antic pt may need to return to dtr w/extra support, cm will cont to follow d/c needs.
[2022-04-07 16:11] LABS: Glucose, Whole Blood 203 mg/dL (60-115)
[2022-04-07] MEDS: Albuterol/Iprat 2.5/0.5MG 3 ML AMPUL.NEB INHALE (16:46)
[2022-04-07] MEDS: TiZANidine HCL 4 MG TABLET PO (16:53)
[2022-04-07] MEDS: Fluticasone Propionate 100 MCG BLST.W.DEV 2 PUFF INHALE (19:30)
[2022-04-07 20:18] LABS: Glucose, Whole Blood 197 mg/dL (60-115)
[2022-04-07] MEDS: Insulin Glargine,Hum.rec.anlog 100 UNIT/ML 10 ML VIAL 50 UNIT SUBCUT (20:32)
[2022-04-07] MEDS: Bumetanide 1 MG TABLET 2 MG PO (20:55)
[2022-04-07] MEDS: Bumetanide 1 MG TABLET PO (20:55)
--- NOTE | 2022-04-07 20:57 | PC.NURSE ---
Patient has order to take Bumex 2mg in am and 1 mg in pm. Nurse was unaware of 2nd order. Patient was given 2mg of Bumex for pm medication. MD was notified. Md said to monitor patient and vitals.
[2022-04-08] VITALS (9 sets, daily range): BP systolic 100–135; BP diastolic 50–67; PULSE 69–86; RESP 17–20; TEMP 36.4–36.6; O2SAT 95–100
[2022-04-08] MEDS: Albuterol/Iprat 2.5/0.5MG 3 ML AMPUL.NEB INHALE ×2 (00:18→06:13)
[2022-04-08] MEDS: Fluticasone Propionate 100 MCG BLST.W.DEV 2 PUFF INHALE ×2 (07:35→20:33)
[2022-04-08 07:39] LABS: Glucose, Whole Blood 191 mg/dL (60-115)
[2022-04-08] MEDS: Insulin Lispro 100 UNIT/ML 3 ML VIAL SUBCUT ×4 (07:59→21:03)
[2022-04-08] MEDS: hydrALAZINE HCl 25 MG TABLET PO (08:01)
[2022-04-08] MEDS: acetaZOLAMIDE 250 MG TABLET PO ×2 (08:01→21:01)
[2022-04-08] MEDS: Empagliflozin 10 MG TABLET PO (08:02)
[2022-04-08] MEDS: Metoprolol Succinate ER 50 MG TAB.ER.24H PO (08:02)
[2022-04-08] MEDS: Bumetanide 1 MG TABLET 2 MG PO (08:02)
[2022-04-08] MEDS: Isosorbide Mononitrate 30 MG TAB.ER.24H PO (08:02)
[2022-04-08] MEDS: FLUoxetine HCl 20 MG CAPSULE 40 MG PO (08:02)
[2022-04-08] MEDS: Gabapentin 100 MG CAPSULE 200 MG PO ×2 (08:03→11:43)
[2022-04-08] MEDS: Aspirin Enteric Coated 81 MG TABLET.DR PO (08:03)
[2022-04-08] MEDS: Cholecalciferol (Vitamin D3) 25 MCG TABLET PO (08:03)
[2022-04-08] MEDS: Spironolactone 25 MG TABLET PO (09:35)
[2022-04-08] MEDS: cloNIDine HCL 0.1 MG TABLET PO ×2 (09:35→21:02)
[2022-04-08] MEDS: risperiDONE 1 MG TABLET PO ×2 (09:35→21:02)
[2022-04-08] MEDS: Enoxaparin Sodium 40 MG/0.4 ML SYRINGE SUBCUT (09:35)
--- NOTE | 2022-04-08 10:42 | PM.PNNEP ---
Subjective Subjective Date of Service: 04/08/22 Principal diagnosis: Decompensated heart failure predominantly right-sided heart failure Interval history: Seen and examined, events noted Physical Exam Vital Signs: Vital Signs: Last Vital Signs Temp 97.5 F 04/08/22 07:15 Pulse 72 04/08/22 07:36 Resp 20 04/08/22 07:36 BP 135/67 04/08/22 07:15 Pulse Ox 99 04/08/22 07:15 O2 Del Method 04/08/22 07:15 O2 Flow Rate 4 04/08/22 04:00 BMI result Body Mass Index 55.8 Const: Other: difficult to arouse, but once awake, alert and talking General: comfortable and no acute distress Nutritional Appearance: obese Resp: Other: diminished Effort & Inspection: no respiratory distress and no use of accessory muscles Cardio: Rate: regular rate Heart sounds: S1 normal heart sound present and S2 normal heart sound present GI: Inspection: No distended and Yes obesity Palpation (GI): Soft to palpation and nontender Extrem: Other: leg swelling improving; b/l UE edema improving Objective Data Labs CBC & Chem 7: 04/07/22 09:52 04/07/22 09:52 Labs: Laboratory Results - last 24 hr 04/04/22 04/07/22 04/07/22 06:19 11:05 16:07 POC Glucose 172 H 203 H Complement C3 122 Complement C4 04/07/22 04/08/22 20:12 07:20 POC Glucose 197 H 191 H Complement C3 Complement C4 Procedures Date of Service Date of Service: 04/08/22 Assessment & Plan Assessment and plan (1) FELICIA (acute kidney injury): Status: Acute (2) Respiratory failure: Status: Acute (3) Acute on chronic combined systolic and diastolic CHF (congestive heart failure): Status: Acute Assessment and Plan: -61 year old female with FELICIA - Renal hypoperfusion in the setting of CHF 1. FELICIA resolved; h/o recurrent EFLICIA and req acute HD in past for HyperK and FELICIA 2. CKD 3a 3. HyperK: resolved for now 4. Hypervol?CHF: maintained on diuretics 5. HyperNa REC: cont to track renal func and K; encourage inr PO fluids; avoid NToxins will sign off call prn Time Spent With Patient Time: Total time spent is greater than 50% in coordination of care (as documented) at patient's floor/unit and/or counseling patient: Progress Note: Quality Stroke Does the patient have a stroke diagnosis?: No
--- NOTE | 2022-04-08 10:49 | HO.PM.IMPN ---
Subjective Subjective Date of Service: 04/08/22 Interval History: follow up for cellulitis, panic, CHF, respiratory failure Resting in bed doing better feeling mentally clear Plan for competency re-evaluation Review of Systems Review of Systems: Yes all other systems are reviewed and are negative Constitutional Constitutional: Denies chills and Denies fever(s) Cardiovascular Cardiovascular: Denies chest pain, Denies palpitations and Denies dyspnea Respiratory Respiratory: Denies cough and Denies dyspnea Gastrointestinal Gastrointestinal: Denies abdominal pain Endocrine Endocrine: Denies palpitations Physical Exam Vital Signs: Vital Signs: Last Vital Signs Temp 97.5 F 04/08/22 07:15 Pulse 72 04/08/22 07:36 Resp 20 04/08/22 07:36 BP 135/67 04/08/22 07:15 Pulse Ox 99 04/08/22 07:15 O2 Del Method 04/08/22 07:15 O2 Flow Rate 4 04/08/22 04:00 BMI result Body Mass Index 55.8 Appearing in no acute distress lung sounds are clear to auscultation heart regular rate rhythm, clear S1, S2 positive bowel sounds, abdomen is soft, nontender neuro patient is alert x3, no focal deficits Objective Data Active Medications Acetaminophen (Acetaminophen 325 Mg Tablet) 650 mg PO Q6H PRN PRN Reason: Pain, Mild (Pain Scale 1-3) Last Admin: 04/05/22 02:56 Dose: 650 mg Documented By: MORTEZA Acetazolamide (Acetazolamide 250 Mg Tablet) 250 mg PO BID [facility] Last Admin: 04/08/22 08:01 Dose: 250 mg Documented By: RADHA Albuterol/Ipratropium (Albuterol/Iprat 2.5/0.5mg 3 Ml Ampul.Neb) 3 ml INHALE RQ6H [facility] Last Admin: 04/08/22 06:13 Dose: 3 ml Documented By: XIOMARA Aspirin (Aspirin Enteric Coated 81 Mg Tablet.) 81 mg PO DAILY [facility] Last Admin: 04/08/22 08:03 Dose: 81 mg Documented By: RADHA Atorvastatin Calcium (Atorvastatin Calcium 10 Mg Tablet) 10 mg PO BEDTIME [facility] Last Admin: 04/07/22 20:47 Dose: Not Given Documented By: IZABELLA Non-Admin Reason: Patient Refused Bumetanide (Bumetanide 1 Mg Tablet) 2 mg PO DAILY [facility]; Protocol Last Admin: 04/08/22 08:02 Dose: 2 mg Documented By: RADHA Bumetanide (Bumetanide 1 Mg Tablet) 1 mg PO BEDTIME [facility]; Protocol Last Admin: 04/07/22 20:55 Dose: 1 mg Documented By: IZABELLA Comments: see notes Clonidine HCl (Clonidine Hcl 0.1 Mg Tablet) 0.1 mg PO TID PRN; Protocol PRN Reason: hyperarousal, anxiety, panic Last Admin: 04/08/22 09:35 Dose: 0.1 mg Documented By: RADHA Doxycycline Hyclate (Doxycycline Hyclate 100 Mg Tablet) 100 mg PO Q12H [facility] Last Admin: 04/08/22 06:06 Dose: 100 mg Documented By: IZABELLA Empagliflozin (Empagliflozin 10 Mg Tablet) 10 mg PO DAILY [facility] Last Admin: 04/08/22 08:02 Dose: 10 mg Documented By: RADHA Enoxaparin Sodium (Enoxaparin Sodium 40 Mg/0.4 Ml Syringe) 40 mg SUBCUT Q24H [facility] Last Admin: 04/08/22 09:35 Dose: 40 mg Documented By: RADHA Fluoxetine HCl (Fluoxetine Hcl 20 Mg Capsule) 40 mg PO DAILY [facility] Last Admin: 04/08/22 08:02 Dose: 40 mg Documented By: RADHA Fluticasone Propionate (Fluticasone Propionate 100 Mcg Blst.W.Dev) 2 puff INHALE RBID [facility] Last Admin: 04/08/22 07:35 Dose: 2 puff Documented By: DAISY Gabapentin (Gabapentin 400 Mg Capsule) 800 mg PO BEDTIME [facility] Last Admin: 04/02/22 20:25 Dose: 800 mg Documented By: KWASI Gabapentin (Gabapentin 100 Mg Capsule) 200 mg PO BID@0900,1200 [facility] Last Admin: 04/08/22 08:03 Dose: 200 mg Documented By: RADHA Hydralazine HCl (Hydralazine Hcl 25 Mg Tablet) 25 mg PO BID [facility]; Protocol Last Admin: 04/08/22 08:01 Dose: 25 mg Documented By: RADHA Insulin Glargine (Insulin Glargine,Hum.Rec.Anlog 100 Unit/Ml 10 Ml Vial) 50 unit SUBCUT BEDTIME [facility] Last Admin: 04/07/22 20:32 Dose: 50 unit Documented By: IZABELLA Insulin Human Lispro (Insulin Lispro 100 Unit/Ml 3 Ml Vial) 0 unit SUBCUT QIDACHS [facility]; Protocol Last Admin: 04/08/22 07:59 Dose: 2 unit Documented By: RADHA Isosorbide Mononitrate (Isosorbide Mononitrate 30 Mg Tab.Er.24h) 30 mg PO DAILY [facility]; Protocol Last Admin: 04/08/22 08:02 Dose: 30 mg Documented By: RADHA Meclizine HCl (Meclizine Hcl 25 Mg Tablet) 25 mg PO TID PRN PRN Reason: Dizziness Last Admin: 04/01/22 16:09 Dose: 25 mg Documented By: EZRA Metoprolol Succinate (Metoprolol Succinate Er 50 Mg Tab.Er.24h) 50 mg PO DAILY [facility]; Protocol Last Admin: 04/08/22 08:02 Dose: 50 mg Documented By: RADHA Nystatin (Nystatin Powder 15 Gm Bottle) 1 appl TOPICAL BID [facility]; Protocol Last Admin: 04/08/22 08:03 Dose: Not Given Documented By: RADHA Non-Admin Reason: Patient Refused Omeprazole (Omeprazole 20 Mg Capsule.) 20 mg PO BEDTIME [facility] Last Admin: 04/07/22 20:49 Dose: Not Given Documented By: IZABELLA Non-Admin Reason: Patient Refused Pharmacy Consult (Consult Rx Perform Med Rec) 1 each MISCELLANE ONCE PRN PRN Reason: Consult order Polyethylene Glycol (Polyethylene Glycol 3350 17 Gm Powd.Pack) 17 gm PO DAILY PRN PRN Reason: constipation Pregabalin (Pregabalin 100 Mg Capsule) 100 mg PO BID [facility] Last Admin: 04/03/22 09:26 Dose: 100 mg Documented By: EZRA Risperidone (Risperidone 1 Mg Tablet) 1 mg PO BID [facility] Last Admin: 04/08/22 09:35 Dose: 1 mg Documented By: RADHA Sodium Chloride (0.9 % Sodium Chloride Flush 3 Ml Syringe) 3 ml IVFLUSH QSHIFT [facility] Last Admin: 04/08/22 08:06 Dose: Not Given Documented By: RADHA Non-Admin Reason: No Access Spironolactone (Spironolactone 25 Mg Tablet) 25 mg PO DAILY [facility]; Protocol Last Admin: 04/08/22 09:35 Dose: 25 mg Documented By: RADHA Tizanidine HCl (Tizanidine Hcl 4 Mg Tablet) 4 mg PO DAILY@1600 [facility] Last Admin: 04/07/22 16:53 Dose: 4 mg Documented By: BIRD Vitamin D (Cholecalciferol (Vitamin D3) 25 Mcg Tablet) 25 mcg PO DAILY [facility] Last Admin: 04/08/22 08:03 Dose: 25 mcg Documented By: RADHA Labs CBC & Chem 7: 04/07/22 09:52 04/07/22 09:52 Labs: Laboratory Results - last 24 hr 04/04/22 04/07/22 04/07/22 06:19 11:05 16:07 POC Glucose 172 H 203 H Complement C3 122 Complement C4 04/07/22 04/08/22 20:12 07:20 POC Glucose 197 H 191 H Complement C3 Complement C4 Assessment and Plan (1) DANIEL (obstructive sleep apnea): Status: Acute (2) Respiratory failure: Status: Acute (3) Morbid obesity: Status: Acute (4) NICM (nonischemic cardiomyopathy): Status: Acute (5) Acute respiratory failure with hypoxia and hypercapnia: Status: Acute Plan 61 year old female with history of 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 Depression/anxiety with agitation Patient with episodes of what she describes as severe anxiety/panic. still having shouting/anxiety episodes Status post competency denied. Seems much mentally clearer today, will have copied to see re-evaluation, daughter aware continue prozac, risperidal and prn clonidine Acute on chronic respiratory failure with hypoxia and hypercarbia Likely multifactorial and secondary to DANIEL, obesity hypoventilation, COPD and CHF Acute on chronic HFrEF Recent admission to [facility]. Echo on 03/10 with grade 2 diastolic dysfunction with EF 25-35%. s/p Lasix drip at 10 mg an hour, stopped Cardiology following Strict intake and output Diamox b.i.d. -7.7L Started bumex 2mg daily, 1mg at bedtime Asthma/COPD with chronic respiratory failure on prn home O2 Nocturnal CPAP, tolerated overnight, apparently at home has difficulties with compliance Scheduled DuoNebs will need home oxygen evaluation FELICIA on CKD 3. Resolved Recently admitted to [facility] requiring temporary dialysis Creatinine trending down Nephrology following Acute recurrent RLE cellulitis intermittent recurrence ongoing since 2019. Treated at [facility] with IV unasyn H/o chronic venous stasis dermatitis Venous deplex negative for DVT. Xray R ankle neg for osseous abnormality including osteomyelitis initially treated with vanco, will transition to doxycycline seen by ID- may be more venous stasis she then cellulitis, recommend transition to p.o. doxycycline on discharge for 14 days and then PCN prophylaxis - outpatient follow up with ID for possible initiation of prophylactic antibiotics keep leg elevated, use diallo wrap Hyperklemia prn lokelma follow BMP Acute on chronic normocytic anemia H/H trending down, no evidence of acute blood loss iron studies, b12, folate ok Insulin dependent Type 2 diabetes Sliding scale, ADA diet, continue Lantus HTN Continue amlodipine, isosorbide HLD Continue statin Diabetic neuropathy lyrica on hold to prevent sedation in the setting of worsening renal function gabapentin being weaned to prevent sedation Morbid obesity BMI 55.8 Discussed importance of weight management as this may be contributing to worsening of other comorbidities DVT prophylaxis- [place] Attending Dr. Sharma Full code Plan for competency re-evaluation patient requires ongoing inpatient hospitalization due to treatment of right lower extremity cellulitis, eval for anxiety, seen and evaluated by psychiatric team deemed to not have capacity to make her own decisions, healthcare proxy invoked. Pending safe discharge to short-term rehab. now requiring management of respiratory failure, chf Quality Stroke Does the patient have a stroke diagnosis?: No VTE Prior VTE?: No VTE Risk Level:: Medical - moderate - high VTE Device Contraindication: Treatment Not Indicated VTE Drug Contraindication: N/A - Med Ordered
--- NOTE | 2022-04-08 10:55 | PM.DS ---
DS: Providers Provider Date of admission: 03/27/22 13:38 Primary care physician: Tavo Huber MD Consults: 03/26/22 09:29 Consult to Infectious Diseases Routine Consulting Provider: Gina Macedo Reason for consultation: cellulitis, not improving, treated with Unasyn at [facility] last week 03/28/22 10:52 Consult to Psychiatry Routine Consulting Provider: Psych Covering Reason for consultation: anxiety/panic Has provider been notified: No 04/01/22 12:31 Consult to Psychiatry Routine Consulting Provider: Psych Covering Reason for consultation: capacity Has provider been notified: No 04/03/22 10:25 Consult to Nephrology Routine Consulting Provider: Jesus Gilbert Reason for consultation: felicia Has provider been notified: No 04/03/22 11:02 Consult to Cardiology Routine Consulting Provider: Joaquín Hunter Reason for consultation: chf Has provider been notified: No 04/03/22 14:24 Consult to Pulmonology Routine Consulting Provider: Ana Sweet Reason for consultation: acute on chronic respiratory failure Has provider been notified: No 04/08/22 10:46 Consult to Psychiatry Routine Consulting Provider: Psych Covering Reason for consultation: re-eval for competency Has provider been notified: No DS: Diagnosis Discharge Diagnosis (1) DANIEL (obstructive sleep apnea): Status: Acute (2) Respiratory failure: Status: Acute (3) Morbid obesity: Status: Acute (4) NICM (nonischemic cardiomyopathy): Status: Acute (5) Acute respiratory failure with hypoxia and hypercapnia: Status: Acute DS: Summary Hospital Course Hospital Course: HP as per admitting provider 61 year old female with history of uncontrolled insulin dependent type 2 diabetes with pvd and neuropathy, chronic venous stasis dermatitis, asthma/COPD overlap with chronic respiratory failure on prn home O2, nonischemic cardiomyopathy, htn, hld, and morbid obesity presented to the ED this morning for evaluation of redness and swelling RLE which has been flaring intermittently since 2019 worsening prior to admission to [facility] last week. She was admitted for acute on chronic CHF. She also developed hyperkalemia with temporary dialysis catheter placed but was dialyzed twice with resolution of FELICIA and hyperkalemia. Now on furosemide BID. Required O2 while hospitalized but sob improved and is back to baseline. She was also treated with unasyn while admitted for RLE cellulitis. Not discharged on oral abx. She feels this has not improved. She reports chronic 10/10 pain of the right knee and ankle, but no pain in the banuelos or calf.? No leukocytosis. Afebrile. Vitals stable, pt currently on 1L O2 nc O2 sat 93%. Venous duplex negative for DVT. Ankle xray negative for acute osseous abnormality including? osteomyelitis or septic arthritis. CXR with some degree of pulmonary congestion, but no effusions. Denies sob, cp . Acute on chronic respiratory failure with hypoxia and hypercarbia Likely multifactorial and secondary to DANIEL, obesity hypoventilation, COPD and CHF Recommend using CPAP at nighttime Home O2 evaluation +++++ Acute on chronic HFrEF Recent admission to [facility]. Echo on 03/10 with grade 2 diastolic dysfunction with EF 25-35%. s/p Lasix drip at 10 mg an hour, stopped put out 7.7 L Cardiology followed Diamox b.i.d. Bumex 2mg daily, 1mg at bedtime Asthma/COPD with chronic respiratory failure on prn home O2 Nocturnal CPAP, tolerated overnight, apparently at home has difficulties with compliance Scheduled DuoNebs will need home oxygen evaluation FELICIA on CKD 3. Resolved Recently admitted to [facility] requiring temporary dialysis Nephrology followed Depression/anxiety with agitation Patient with episodes of what she describes as severe anxiety/panic. still having shouting/anxiety episodes continue prozac, risperidal and prn clonidine Initially deemed not competent and healthcare proxy was invoked however patient's mental status cleared up and subsequently was re-evaluated by psychiatry team +++++ Acute recurrent RLE cellulitis intermittent recurrence ongoing since 2019. Treated at [facility] with IV unasyn H/o chronic venous stasis dermatitis Venous deplex negative for DVT. Xray R ankle neg for osseous abnormality including osteomyelitis initially treated with vanco, will transition to doxycycline seen by ID- may be more venous stasis she then cellulitis, recommend transition to p.o. doxycycline on discharge for 14 days and then PCN prophylaxis - outpatient follow up with ID for possible initiation of prophylactic antibiotics keep leg elevated, use tanmay wrap Hypernatremia. Trending down Treated with D5 water initially, 2 L fluid restriction Hyperklemia Treated with Lokelma Acute on chronic normocytic anemia H/H trending down, no evidence of acute blood loss iron studies, b12, folate ok Insulin dependent Type 2 diabetes Treated with Sliding scale, ADA diet, continue Lantus Continue home medications HTN Continue amlodipine, isosorbide HLD Continue statin Diabetic neuropathy lyrica on hold to prevent sedation in the setting of worsening renal function, restarted gabapentin being weaned to prevent sedation, may go back on regular dose Morbid obesity BMI 55.8 Discussed importance of weight management as this may be contributing to worsening of other comorbidities Time Spent with Patient Time attestation: Total time spent providing and/or coordinating discharge services: Physical Exam Vital Signs: Vital Signs: Last Vital Signs Temp 97.5 F 04/08/22 07:15 Pulse 72 04/08/22 07:36 Resp 20 04/08/22 07:36 BP 135/67 04/08/22 07:15 Pulse Ox 99 04/08/22 07:15 O2 Del Method 04/08/22 07:15 O2 Flow Rate 4 04/08/22 04:00 BMI result Body Mass Index 55.8 DS: Data Data Completed and Pending Completed studies during hospitalization [Text1]: Procedures Assistance with Respiratory Ventilation, Less than 24 Consecutive Hours, Continuous Positive Airway Pressure (12/11/20) Labs on day of discharge: Laboratory Results - last 24 hr 04/04/22 04/07/22 04/07/22 06:19 11:05 16:07 POC Glucose 172 H 203 H Complement C3 122 Complement C4 04/07/22 04/08/22 20:12 07:20 POC Glucose 197 H 191 H Complement C3 Complement C4 Discharge Plan Discharge Anticipated Discharge Date/Time: 04/14/22 11:49 Patient Disposition: Home, Self-Care Discharge Diagnosis: Acute on chronic respiratory failure with hypoxia and hypercarbia secondary to heart failure with reduced ejection fraction Asthma/COPD with chronic respiratory failure FELICIA on CKD 3 Depression with anxiety Acute recurrent right lower extremity cellulitis Referrals: [facility] [Outside] - 1 Day ([facility] Tavo Huber MD [Primary Care Provider] - 1 Week Gina Macedo MD [Physician] - 1 Week Discharge Medications: New clonidine HCl 0.1 mg Tablet 0.1 mg PO TID PRN (Reason: hyperarousal, anxiety, panic) Qty: 90 0RF Protocol: Hold for SBP< HOLD for SBP < : 90 hydralazine 25 mg Tablet 25 mg PO BID Qty: 60 0RF Protocol: Hold for SBP< HOLD for SBP < : 90 spironolactone 25 mg Tablet 25 mg PO DAILY Qty: 30 0RF Protocol: Hold for SBP< HOLD for SBP < : 90 risperidone 1 mg Tablet 1 mg PO BID Qty: 60 0RF bumetanide 1 mg Tablet 1 mg PO BEDTIME Qty: 30 0RF Protocol: Hold for SBP< HOLD for SBP < : 90 bumetanide 1 mg Tablet 2 mg PO DAILY Qty: 60 0RF Protocol: Hold for SBP< HOLD for SBP < : 90 Continued gabapentin 400 mg capsule 400 mg PO BID@0900,1200 ipratropium-albuterol 0.5 mg-3 mg(2.5 mg base)/3 mL Solution For Nebulization 3 ml inhalation RQ4H WHILE AWAKE PRN (Reason: Shortness Of Breath/Wheezing) Qty: 1 0RF insulin lispro [Humalog U-100 Insulin] 100 unit/mL Solution See Protocol subcut QIDACHS Qty: 1 0RF Protocol: Insulin Correction Scale Less than or equal to 110 ---- Give (units): 0 111 to 150 Give (units): 0 151 to 200 Give (units): 2 201 to 250 Give (units): 4 251 to 300 Give (units): 6 301 to 350 Give (units): 8 Greater than 350 Give (units): 10 Call MD if Blood Glucose > : 350 fluoxetine 40 mg capsule 40 mg PO DAILY metoprolol succinate 50 mg tablet extended release 24 hr 50 mg PO DAILY aspirin 81 mg tablet,delayed release (DR/EC) 81 mg PO DAILY simvastatin 20 mg tablet 20 mg PO BEDTIME omeprazole 20 mg capsule,delayed release(DR/EC) 20 mg PO BEDTIME Rx Instructions: PT TAKES BEDTIME albuterol sulfate [ProAir HFA] 90 mcg/actuation HFA aerosol inhaler 2 puff inhalation Q4H PRN (Reason: Dyspnea) fluticasone propionate [Flovent HFA] 110 mcg/actuation HFA aerosol inhaler 2 puff inhalation BID tizanidine 4 mg Tablet 4 mg PO BEDTIME isosorbide mononitrate 30 mg Tablet Extended Release 24 Hr 30 mg PO DAILY insulin glargine [Lantus U-100 Insulin] 100 unit/mL solution 80 unit subcut BEDTIME bumetanide 2 mg tablet 1 tab PO DAILY amlodipine 10 mg tablet 1 tab PO DAILY cholecalciferol (vitamin D3) 25 mcg (1,000 unit) capsule 1 cap PO DAILY meclizine 25 mg Tablet 25 mg PO TID PRN (Reason: Dizziness) gabapentin 400 mg capsule 800 mg PO BEDTIME pregabalin 100 mg capsule 1 cap PO BID furosemide 20 mg tablet 1 tab PO DAILY haloperidol 2 mg tablet 1 tab PO BEDTIME Discharge Orders: Discharge Order (Routine); Ordered 04/14/22 Ordered By: Guillermo Marina Diet: Advance to usual diet Activity on Discharge: As tolerated Stand Alone Forms: Patient Portal Discharge page Care Plan Goals: Continue monitoring lower extremities, wound care as needed Use CPAP at night Health Concerns: Acute on chronic respiratory failure with hypoxia and hypercarbia secondary to heart failure with reduced ejection fraction Asthma/COPD with chronic respiratory failure FELICIA on CKD 3 Depression with anxiety Acute recurrent right lower extremity cellulitis Plan of Treatment: Follow-up with primary care provider as needed Can use Tanmay wraps for lower extremities follow-up with Infectious Disease provider as an outpatient Assessment: See discharge summary
[2022-04-08 11:20] LABS: Glucose, Whole Blood 223 mg/dL (60-115)
--- NOTE | 2022-04-08 11:27 | MHC.CM.PN ---
EMR REVEIWED, PT CONT'S TO HAVE NO BED OFFERS FOR STR AND PT NOW REFUSING STR, PER HOSPITALIST DTR IS PREPARING FOR PT TO STAY W/HER, PT HAS INDWELLING [facility] CATH AND WILL NEED HOME O2 EVAL PRIOR TO D/C, CM WILL CONT TO FOLLOW D/C NEEDS.
--- NOTE | 2022-04-08 16:21 | MHC.CM.PN ---
CM MET W/PT TO DISCUSS DISPO AND VERIFY PT WILL HAVE HELPAT HOME, PT REPORTS HER DTR WILL ONLY BE AROUND ON WEEKENDS SHE WORKS [employer], PT REPORTS THE LAST TIME SHE WAS IN THE HOSPITAL SHE STAYED W/A FRIEND FOR A FEW DAYS BEFORE RETURNING HOME AND WILL CALL HER FRIEND AND ASK IF SHE CAN STAY W/HER AND HER , PT WOULD LIKE SERVICES AT HOME AND CM WILL FOLLOW-UP W/PT IN AM.
[2022-04-08 17:05] LABS: Glucose, Whole Blood 254 mg/dL (60-115)
[2022-04-08 20:28] LABS: Glucose, Whole Blood 210 mg/dL (60-115)
[2022-04-08] MEDS: Atorvastatin Calcium 10 MG TABLET PO (21:01)
[2022-04-08] MEDS: Bumetanide 1 MG TABLET PO (21:01)
[2022-04-08] MEDS: Omeprazole 20 MG CAPSULE.DR PO (21:02)
[2022-04-08] MEDS: Insulin Glargine,Hum.rec.anlog 100 UNIT/ML 10 ML VIAL 50 UNIT SUBCUT (21:03)
[2022-04-09] VITALS: BP 112/60; PULSE 84; RESP 19; TEMP 36.3; O2SAT 97
[2022-04-09 04:00] VITALS: BP 115/59; PULSE 76; RESP 17; TEMP 36.6; O2SAT 97
--- NOTE | 2022-04-09 06:13 | P.CNPS_ITS ---
History of Present Illness Date of Service: 04/08/2022 Chief Complaint: RLE pain Reason for Consult: capacity Requesting physician: Johana Francis Discussed with referring provider: Yes Sources of Information: patient interviewed, chart reviewed and crisis/core team assessment reviewed HPI Narrative: See previous psych consult note for history. Psych consult placed for capacity. I spoke with pt's provider, who reports she has been more alert and oriented, progressing back to baseline. I spoke with pt's RN, says she was alert and awake this morning, became tired in the afternoon. Pt is currently lethargic, asleep upright in her chair. She declined interview, did not want to wake up. Per pt's RN, she is no longer yelling out or hallucinating. She is now answering questions appropriately. Has been wearing the cpap at night, less somnolent in the daytime. She is adherent with treatment interventions and recommendations. I spoke with pt's daughter, says she still has those little depression dips however daughter agrees she is overall doing better, closer to baseline. She notes that pt doesnt remember how she was presenting previous days, may be due t o mild delirium, which seems to have resolved. Past Psychiatric History: Denies formal hx of psych treatment, has been on fluoxetine 40 mg for many years from her PCP to treat depression with adequate success. [facility] Medical History Acute on chronic combined systolic and diastolic CHF (congestive heart failure) Asthma Cellulitis of right lower extremity Chronic pain CKD (chronic kidney disease) stage 3, GFR 30-59 ml/min Congestive heart failure Depression Diabetes Diabetic neuropathy, painful High cholesterol Hypertension Morbid obesity NICM (nonischemic cardiomyopathy) Obesity hypoventilation syndrome DANIEL (obstructive sleep apnea) Surgical History Hx of cholecystectomy Diagnostics Vital Signs (24Hr): Vital Signs - 24 hr 04/08/22 06:16 04/08/22 07:15 04/08/22 07:36 Temperature 97.5 F Pulse Rate 71 79 72 Respiratory Rate 20 18 20 Blood Pressure 135/67 Pulse Oximetry 99 Oxygen Delivery Method Room Air Oxygen Flow Rate 04/08/22 11:09 04/08/22 16:00 04/08/22 20:00 Temperature 97.9 F 97.8 F 97.6 F Pulse Rate 82 71 73 Respiratory Rate 18 17 18 Blood Pressure 114/55 L 134/63 100/56 L Pulse Oximetry 100 99 100 Oxygen Delivery Method Nasal Cannula Nasal Cannula Nasal Cannula Oxygen Flow Rate 4 4.0 4.0 04/08/22 20:34 04/09/22 00:00 04/09/22 04:00 Temperature 97.4 F 97.9 F Pulse Rate 73 84 76 Respiratory Rate 18 19 17 Blood Pressure 112/60 115/59 L Pulse Oximetry 97 97 Oxygen Delivery Method Nasal Cannula Room Air Oxygen Flow Rate 4 BMI result Body Mass Index 55.8 Labs Results: 04/07/22 09:52 04/07/22 09:52 Labs: Laboratory Results - last 48 hr 04/04/22 04/07/22 04/07/22 06:19 07:34 09:52 WBC 6.0 RBC 3.62 L Hgb 9.7 L Hct 33.5 L MCV 92.5 MCH 26.8 L MCHC 29.0 L RDW 17.7 H Plt Count 150 L MPV 9.6 Immature Gran % (Auto) 0.5 H Neut % (Auto) 68.3 Lymph % (Auto) 13.9 L [place] % (Auto) 11.5 H Eos % (Auto) 5.5 H Baso % (Auto) 0.3 Lymph # (Auto) 0.8 L [place] # (Auto) 0.7 Eos # (Auto) 0.3 Baso # (Auto) 0.0 Abs Immat Gran (auto) 0.03 Absolute Neuts (auto) 4.1 Absolute Nucleated RBC 0.000 Nucleated RBC % (auto) 0.0 Sodium Potassium Chloride Carbon Dioxide Anion Gap BUN Creatinine Estim Creat Clear Calc Estimated GFR POC Glucose 127 H Random Glucose Calcium B-Natriuretic Peptide Complement C3 122 Complement C4 04/07/22 04/07/22 04/07/22 09:52 09:52 11:05 WBC RBC Hgb Hct MCV MCH MCHC RDW Plt Count MPV Immature Gran % (Auto) Neut % (Auto) Lymph % (Auto) [place] % (Auto) Eos % (Auto) Baso % (Auto) Lymph # (Auto) [place] # (Auto) Eos # (Auto) Baso # (Auto) Abs Immat Gran (auto) Absolute Neuts (auto) Absolute Nucleated RBC Nucleated RBC % (auto) Sodium 148 H Potassium 3.5 Chloride 102 Carbon Dioxide 35 H Anion Gap 15 BUN 53 H Creatinine 1.18 Estim Creat Clear Calc 68.3 Estimated GFR 47 POC Glucose 172 H Random Glucose 123 H Calcium 8.4 B-Natriuretic Peptide 230 H Complement C3 Complement C4 04/07/22 04/07/22 04/08/22 16:07 20:12 07:20 WBC RBC Hgb Hct MCV MCH MCHC RDW Plt Count MPV Immature Gran % (Auto) Neut % (Auto) Lymph % (Auto) [place] % (Auto) Eos % (Auto) Baso % (Auto) Lymph # (Auto) [place] # (Auto) Eos # (Auto) Baso # (Auto) Abs Immat Gran (auto) Absolute Neuts (auto) Absolute Nucleated RBC Nucleated RBC % (auto) Sodium Potassium Chloride Carbon Dioxide Anion Gap BUN Creatinine Estim Creat Clear Calc Estimated GFR POC Glucose 203 H 197 H 191 H Random Glucose Calcium B-Natriuretic Peptide Complement C3 Complement C4 04/08/22 04/08/22 04/08/22 11:15 16:44 20:10 WBC RBC Hgb Hct MCV MCH MCHC RDW Plt Count MPV Immature Gran % (Auto) Neut % (Auto) Lymph % (Auto) [place] % (Auto) Eos % (Auto) Baso % (Auto) Lymph # (Auto) [place] # (Auto) Eos # (Auto) Baso # (Auto) Abs Immat Gran (auto) Absolute Neuts (auto) Absolute Nucleated RBC Nucleated RBC % (auto) Sodium Potassium Chloride Carbon Dioxide Anion Gap BUN Creatinine Estim Creat Clear Calc Estimated GFR POC Glucose 223 H 254 H 210 H Random Glucose Calcium B-Natriuretic Peptide Complement C3 Complement C4 Imaging Radiology Impressions: ITS Impressions Chest X-Ray 03/26/22 04:50 IMPRESSION: Prominent central vasculature suggesting a degree of congestion. Enlarged cardiac silhouette. Venous Duplex 03/26/22 09:50 IMPRESSION: No deep vein thrombosis in the visualized veins of the right lower extremity. The peroneal and posterior tibial veins in the calf were not visualized. Ankle X-Ray 03/26/22 10:00 IMPRESSION: * No acute osseous injury at the right ankle. * There are no radiographic findings to suggest presence of septic arthritis or osteomyelitis. * Nonspecific diffuse soft tissue swelling of the examined lower extremity, ankle and foot. Chest X-Ray 03/27/22 16:33 IMPRESSION: Mild prominence of the pulmonary vasculature and cardiac silhouette may be baseline for the patient, but mild congestion cannot be excluded. Venous Duplex 03/29/22 15:03 IMPRESSION: No DVT demonstrated in the right lower extremity. Soft tissue abnormality consistent with edema Chest X-Ray 04/03/22 11:17 IMPRESSION: * The examination of lungs is partially limited by the patient's body habitus. * Cardiomegaly and pulmonary vascular congestion. Findings are suggestive of congestive heart failure. The slightly increased hazy opacities of lower lung zones could represent atelectasis, infiltrates and/or layering of small effusions. Mental Status Exam Mental Status Exam Narrative: A&O. Morbidly obese, in hospital attire, asleep. Poor eye contact, inattentive. No Tics or Tremors. No abnormal involuntary movements. Calm, currently in behavioral control. Mood is depressed. No lability. Denies SI/SIB/HI upon inquiry. Denies A/VH. No known cognitive or memory impairment. Insight/ Judgment limited. Medications Medications Current Medications Acetaminophen (Acetaminophen 325 Mg Tablet) 650 mg PO Q6H PRN PRN Reason: Pain, Mild (Pain Scale 1-3) Last Admin: 04/05/22 02:56 Dose: 650 mg Acetazolamide (Acetazolamide 250 Mg Tablet) 250 mg PO BID [facility] Last Admin: 04/08/22 21:01 Dose: 250 mg Albuterol/Ipratropium (Albuterol/Iprat 2.5/0.5mg 3 Ml Ampul.Neb) 3 ml INHALE RQ6H [facility] Last Admin: 04/09/22 00:33 Dose: Not Given Aspirin (Aspirin Enteric Coated 81 Mg Tablet.) 81 mg PO DAILY [facility] Last Admin: 04/08/22 08:03 Dose: 81 mg Atorvastatin Calcium (Atorvastatin Calcium 10 Mg Tablet) 10 mg PO BEDTIME [facility] Last Admin: 04/08/22 21:01 Dose: 10 mg Bumetanide (Bumetanide 1 Mg Tablet) 2 mg PO DAILY [facility]; Protocol Last Admin: 04/08/22 08:02 Dose: 2 mg Bumetanide (Bumetanide 1 Mg Tablet) 1 mg PO BEDTIME [facility]; Protocol Last Admin: 04/08/22 21:01 Dose: 1 mg Clonidine HCl (Clonidine Hcl 0.1 Mg Tablet) 0.1 mg PO TID PRN; Protocol PRN Reason: hyperarousal, anxiety, panic Last Admin: 04/08/22 21:02 Dose: 0.1 mg Doxycycline Hyclate (Doxycycline Hyclate 100 Mg Tablet) 100 mg PO Q12H [facility] [place] Last Admin: 04/08/22 18:07 Dose: 100 mg Empagliflozin (Empagliflozin 10 Mg Tablet) 10 mg PO DAILY [facility] [place] Last Admin: 04/08/22 08:02 Dose: 10 mg Enoxaparin Sodium (Enoxaparin Sodium 40 Mg/0.4 Ml Syringe) 40 mg SUBCUT Q24H [facility] [place] Last Admin: 04/08/22 09:35 Dose: 40 mg Fluoxetine HCl (Fluoxetine Hcl 20 Mg Capsule) 40 mg PO DAILY [facility] Last Admin: 04/08/22 08:02 Dose: 40 mg Fluticasone Propionate (Fluticasone Propionate 100 Mcg Blst.W.Dev) 2 puff INHALE RBID [facility] [place] Last Admin: 04/08/22 20:33 Dose: 2 puff Gabapentin (Gabapentin 400 Mg Capsule) 800 mg PO BEDTIME [facility] [place] Last Admin: 04/02/22 20:25 Dose: 800 mg Gabapentin (Gabapentin 100 Mg Capsule) 200 mg PO BID@0900,1200 [facility] [place] Last Admin: 04/08/22 11:43 Dose: 200 mg Hydralazine HCl (Hydralazine Hcl 25 Mg Tablet) 25 mg PO BID [facility] [place]; Protocol Last Admin: 04/08/22 21:03 Dose: Not Given Insulin Glargine (Insulin Glargine,Hum.Rec.Anlog 100 Unit/Ml 10 Ml Vial) 50 unit SUBCUT BEDTIME [facility] [place] Last Admin: 04/08/22 21:03 Dose: 50 unit Insulin Human Lispro (Insulin Lispro 100 Unit/Ml 3 Ml Vial) 0 unit SUBCUT QIDACHS [facility] [place]; Protocol Last Admin: 04/08/22 21:03 Dose: 4 unit Isosorbide Mononitrate (Isosorbide Mononitrate 30 Mg Tab.Er.24h) 30 mg PO DAILY [facility]; Protocol Last Admin: 04/08/22 08:02 Dose: 30 mg Meclizine HCl (Meclizine Hcl 25 Mg Tablet) 25 mg PO TID PRN PRN Reason: Dizziness Last Admin: 04/01/22 16:09 Dose: 25 mg Metoprolol Succinate (Metoprolol Succinate Er 50 Mg Tab.Er.24h) 50 mg PO DAILY [facility] [place] [place]; Protocol Last Admin: 04/08/22 08:02 Dose: 50 mg Nystatin (Nystatin Powder 15 Gm Bottle) 1 appl TOPICAL BID [facility] [place]; Protocol Last Admin: 04/08/22 21:03 Dose: Not Given Omeprazole (Omeprazole 20 Mg Capsule.Dr) 20 mg PO BEDTIME [facility] [place] Last Admin: 04/08/22 21:02 Dose: 20 mg Pharmacy Consult (Consult Rx Perform Med Rec) 1 each MISCELLANE ONCE PRN PRN Reason: Consult order Polyethylene Glycol (Polyethylene Glycol 3350 17 Gm Powd.Pack) 17 gm PO DAILY PRN PRN Reason: constipation Pregabalin (Pregabalin 100 Mg Capsule) 100 mg PO BID [facility] [place] Last Admin: 04/03/22 09:26 Dose: 100 mg Risperidone (Risperidone 1 Mg Tablet) 1 mg PO BID [facility] [place] Last Admin: 04/08/22 21:02 Dose: 1 mg Sodium Chloride (0.9 % Sodium Chloride Flush 3 Ml Syringe) 3 ml IVFLUSH QSHIFT [facility] [place] Last Admin: 04/08/22 21:04 Dose: Not Given Spironolactone (Spironolactone 25 Mg Tablet) 25 mg PO DAILY [facility] [place]; Protocol Last Admin: 04/08/22 09:35 Dose: 25 mg Tizanidine HCl (Tizanidine Hcl 4 Mg Tablet) 4 mg PO DAILY@1600 [facility] [place] Last Admin: 04/08/22 17:17 Dose: Not Given Vitamin D (Cholecalciferol (Vitamin D3) 25 Mcg Tablet) 25 mcg PO DAILY [facility] Last Admin: 04/08/22 08:03 Dose: 25 mcg Allergies Allergies Allergy/AdvReac Type Severity Reaction Status Date / Time ibuprofen Allergy Intermediate vommiting, Verified 04/04/22 10:51 itching acetaminophen [Tylenol] Allergy Mild Unknown Verified 04/05/22 05:56 morphine AdvReac Intermediate vomiting Verified 04/04/22 10:51 Assessment & Plan Assessment & Plan (1) MDD (major depressive disorder), recurrent episode, moderate: Status: Acute Code(s): F33.1 - Major depressive disorder, recurrent, moderate (2) Adjustment disorder with mixed anxiety and depressed mood: Status: Acute Code(s): F43.23 - Adjustment disorder with mixed anxiety and depressed mood (3) Panic disorder: Status: Acute Code(s): F41.0 - Panic disorder [episodic paroxysmal anxiety] Plan 03/28: Pt has continued on haldol 2 mg QHS, started at [facility] for A/VH in the context of delirium, she was supposed to only use it as a PRN, however her daughter said she stopped it for 2 days and her hallucinations returned, so she resumed taking it nightly. She is now complaining of restlessness, possible akathesia. Will discontinue haldol PRN. Will start risperdal 0.5 mg BID for anxious distress, agitation, and hallucinations- discussed with pt and her daughter that this should not be used technician terminal and repeater, as pt has morbid obesity. Currently her appetite is low, but she would be at risk of increased metabolic SE with continued use. Presumably, pt?s sx of acute anxiety and hallucinations should be self limiting once she is back to baseline, as she does not have a hx of panic or psychosis and these sx started with the exacerbation of her medical conditions. Will start clonidine 0.1 mg TID PRN for breakthrough anxiety and hy perarousal. At this time, pt is not meeting criteria for psych IPLOC and there are no imminent safety concerns. 04/01: Today I assessed the patient for capacity. Pt is making the medical decision to refuse transfer to short term rehab and requesting to discharge home, however pt will likely not have 24/hr care and she does not appear able to care for herself independently. Per corporate staff accountant, pt has been screaming out, lethargic throughout the day, and demanding PRN medications. Pt difficult to understand, slurring her words, whispering, but continues with persistent anxiety. I would not recommend increasing risperdal or clonidine, as she is not lethargic at baseline. These medications do not appear to be exacerbating her lethargy, as she presented with sedation prior to starting them. Pt is not able to demonstrate an understanding of the consequences that declining short term rehab will have on her health. Therefore, I recommend invoking her daughter as HCP. Pt's daughter is currently working on setting up in home services for her mother and applying for increased VNA hours in order to aid with safe discharge. 04/04: Will increase risperdal to 1 mg BID for psychotic sx, agitation. Discu ssed with daughter, she is in agreement with plan. 04/08: Pt is progressing back to baseline per her primary medical team and daughter, no longer hallucinating or yelling out. She is alert and oriented, answering questions appropriately. Less lethargic in the daytime. I was unable to interview pt, as she is still lethargic in the evening, however based on collateral info it appears pt does have capacity for making health decisions. I recommend to restore capacity and revoke HCP. Daughter is informed and agrees with plan.? I have shared this with Dr. Johana Francis Thank you for this consultation. If you have any questions or concerns, please do not hesitate to contact psychiatry service. I spent minutes with the patient and/or on the patient floor today, g reater than?50% of which was spent counseling/coordinating care.
[2022-04-09 07:27] VITALS: BP 111/51; PULSE 68; RESP 18; TEMP 36.4; O2SAT 98
[2022-04-09 07:33] LABS: Glucose, Whole Blood 136 mg/dL (60-115)
[2022-04-09] MEDS: Metoprolol Succinate ER 50 MG TAB.ER.24H PO (07:58)
[2022-04-09] MEDS: Gabapentin 100 MG CAPSULE 200 MG PO ×2 (07:59→11:46)
[2022-04-09] MEDS: FLUoxetine HCl 20 MG CAPSULE 40 MG PO (07:59)
[2022-04-09] MEDS: Bumetanide 1 MG TABLET 2 MG PO (07:59)
[2022-04-09] MEDS: cloNIDine HCL 0.1 MG TABLET PO ×2 (07:59→14:56)
[2022-04-09] MEDS: Spironolactone 25 MG TABLET PO (07:59)
[2022-04-09] MEDS: Isosorbide Mononitrate 30 MG TAB.ER.24H PO (07:59)
[2022-04-09] MEDS: Cholecalciferol (Vitamin D3) 25 MCG TABLET PO (07:59)
[2022-04-09] MEDS: Empagliflozin 10 MG TABLET PO (08:00)
[2022-04-09] MEDS: acetaZOLAMIDE 250 MG TABLET PO ×2 (08:00→20:36)
[2022-04-09] MEDS: Aspirin Enteric Coated 81 MG TABLET.DR PO (08:00)
[2022-04-09] MEDS: hydrALAZINE HCl 25 MG TABLET PO ×2 (08:00→20:36)
[2022-04-09] MEDS: risperiDONE 1 MG TABLET PO ×2 (08:00→20:37)
--- NOTE | 2022-04-09 08:24 | P.PNIM_ITS ---
Subjective Subjective Date of Service: 04/09/22 Interval History: follow up for cellulitis, panic, CHF, respiratory failure Resting in bed doing better feeling mentally clear Plan for competency re-evaluation Review of Systems Review of Systems: Yes all other systems are reviewed and are negative Constitutional Constitutional: Denies chills and Denies fever(s) Cardiovascular Cardiovascular: Denies chest pain, Denies palpitations and Denies dyspnea Respiratory Respiratory: Denies cough and Denies dyspnea Gastrointestinal Gastrointestinal: Denies abdominal pain Endocrine Endocrine: Denies palpitations Physical Exam Vital Signs: Vital Signs: Last Vital Signs Temp 97.5 F 04/09/22 07:27 Pulse 68 04/09/22 07:27 Resp 18 04/09/22 07:27 BP 111/51 L 04/09/22 07:27 Pulse Ox 98 04/09/22 07:27 O2 Del Method 04/09/22 07:27 O2 Flow Rate 4 04/09/22 07:27 BMI result Body Mass Index 55.8 Appearing in no acute distress lung sounds are clear to auscultation heart regular rate rhythm, clear S1, S2 positive bowel sounds, abdomen is soft, nontender neuro patient is alert x3, no focal deficits Objective Data Active Medications Acetaminophen (Acetaminophen 325 Mg Tablet) 650 mg PO Q6H PRN PRN Reason: Pain, Mild (Pain Scale 1-3) Last Admin: 04/05/22 02:56 Dose: 650 mg Documented By: MORTEZA Acetazolamide (Acetazolamide 250 Mg Tablet) 250 mg PO BID [facility] Last Admin: 04/09/22 08:00 Dose: 250 mg Documented By: RADHA Albuterol/Ipratropium (Albuterol/Iprat 2.5/0.5mg 3 Ml Ampul.Neb) 3 ml INHALE RQ6H [facility] Last Admin: 04/09/22 06:18 Dose: Not Given Documented By: JARRETT Non-Admin Reason: Patient Refused Aspirin (Aspirin Enteric Coated 81 Mg Tablet.) 81 mg PO DAILY [facility] Last Admin: 04/09/22 08:00 Dose: 81 mg Documented By: RADHA Atorvastatin Calcium (Atorvastatin Calcium 10 Mg Tablet) 10 mg PO BEDTIME [facility] Last Admin: 04/08/22 21:01 Dose: 10 mg Documented By: IZABELLA Bumetanide (Bumetanide 1 Mg Tablet) 2 mg PO DAILY [facility]; Protocol Last Admin: 04/09/22 07:59 Dose: 2 mg Documented By: RADHA Bumetanide (Bumetanide 1 Mg Tablet) 1 mg PO BEDTIME [facility]; Protocol Last Admin: 04/08/22 21:01 Dose: 1 mg Documented By: IZABELLA Clonidine HCl (Clonidine Hcl 0.1 Mg Tablet) 0.1 mg PO TID PRN; Protocol PRN Reason: hyperarousal, anxiety, panic Last Admin: 04/09/22 07:59 Dose: 0.1 mg Documented By: RADHA Doxycycline Hyclate (Doxycycline Hyclate 100 Mg Tablet) 100 mg PO Q12H [facility] Last Admin: 04/09/22 07:58 Dose: 100 mg Documented By: RADHA Empagliflozin (Empagliflozin 10 Mg Tablet) 10 mg PO DAILY [facility] Last Admin: 04/09/22 08:00 Dose: 10 mg Documented By: RADHA Enoxaparin Sodium (Enoxaparin Sodium 40 Mg/0.4 Ml Syringe) 40 mg SUBCUT Q24H [facility] Last Admin: 04/08/22 09:35 Dose: 40 mg Documented By: RADHA Fluoxetine HCl (Fluoxetine Hcl 20 Mg Capsule) 40 mg PO DAILY [facility] Last Admin: 04/09/22 07:59 Dose: 40 mg Documented By: RADHA Fluticasone Propionate (Fluticasone Propionate 100 Mcg Blst.W.Dev) 2 puff INHALE RBID [facility] Last Admin: 04/09/22 08:01 Dose: Not Given Documented By: ZENA Non-Admin Reason: Med Not Available Gabapentin (Gabapentin 400 Mg Capsule) 800 mg PO BEDTIME [facility] Last Admin: 04/02/22 20:25 Dose: 800 mg Documented By: KWASI Gabapentin (Gabapentin 100 Mg Capsule) 200 mg PO BID@0900,1200 [facility] Last Admin: 04/09/22 07:59 Dose: 200 mg Documented By: RADHA Hydralazine HCl (Hydralazine Hcl 25 Mg Tablet) 25 mg PO BID [facility]; Protocol Last Admin: 04/09/22 08:00 Dose: 25 mg Documented By: RADHA Insulin Glargine (Insulin Glargine,Hum.Rec.Anlog 100 Unit/Ml 10 Ml Vial) 50 unit SUBCUT BEDTIME [facility] Last Admin: 04/08/22 21:03 Dose: 50 unit Documented By: IZABELLA Insulin Human Lispro (Insulin Lispro 100 Unit/Ml 3 Ml Vial) 0 unit SUBCUT QIDACHS [facility]; Protocol Last Admin: 04/09/22 07:49 Dose: Not Given Documented By: RADHA Non-Admin Reason: No Insulin Coverage Isosorbide Mononitrate (Isosorbide Mononitrate 30 Mg Tab.Er.24h) 30 mg PO DAILY [facility]; Protocol Last Admin: 04/09/22 07:59 Dose: 30 mg Documented By: RADHA Meclizine HCl (Meclizine Hcl 25 Mg Tablet) 25 mg PO TID PRN PRN Reason: Dizziness Last Admin: 04/01/22 16:09 Dose: 25 mg Documented By: EZRA Metoprolol Succinate (Metoprolol Succinate Er 50 Mg Tab.Er.24h) 50 mg PO DAILY [facility]; Protocol Last Admin: 04/09/22 07:58 Dose: 50 mg Documented By: RADHA Nystatin (Nystatin Powder 15 Gm Bottle) 1 appl TOPICAL BID [facility]; Protocol Last Admin: 04/09/22 08:03 Dose: Not Given Documented By: RADHA Non-Admin Reason: Patient Refused Omeprazole (Omeprazole 20 Mg Capsule.) 20 mg PO BEDTIME [facility] Last Admin: 04/08/22 21:02 Dose: 20 mg Documented By: IZABELLA Pharmacy Consult (Consult Rx Perform Med Rec) 1 each MISCELLANE ONCE PRN PRN Reason: Consult order Polyethylene Glycol (Polyethylene Glycol 3350 17 Gm Powd.Pack) 17 gm PO DAILY PRN PRN Reason: constipation Pregabalin (Pregabalin 100 Mg Capsule) 100 mg PO BID [facility] Last Admin: 04/03/22 09:26 Dose: 100 mg Documented By: EZRA Risperidone (Risperidone 1 Mg Tablet) 1 mg PO BID [facility] Last Admin: 04/09/22 08:00 Dose: 1 mg Documented By: RADHA Sodium Chloride (0.9 % Sodium Chloride Flush 3 Ml Syringe) [facility] Last Admin: 04/09/22 07:49 Dose: Not Given Documented By: RADHA Non-Admin Reason: No Access Spironolactone (Spironolactone 25 Mg Tablet) 25 mg PO DAILY [facility]; Protocol Last Admin: 04/09/22 07:59 Dose: 25 mg Documented By: RADHA Tizanidine HCl (Tizanidine Hcl 4 Mg Tablet) 4 mg PO DAILY@1600 [facility] Last Admin: 04/08/22 17:17 Dose: Not Given Documented By: RADHA Non-Admin Reason: Patient Refused Vitamin D (Cholecalciferol (Vitamin D3) 25 Mcg Tablet) 25 mcg PO DAILY [facility] Last Admin: 04/09/22 07:59 Dose: 25 mcg Documented By: RADHA Labs CBC & Chem 7: 04/07/22 09:52 04/07/22 09:52 Labs: Laboratory Results - last 24 hr 04/08/22 04/08/22 04/08/22 11:15 16:44 20:10 POC Glucose 223 H 254 H 210 H 04/09/22 07:27 POC Glucose 136 H Assessment and Plan (1) DANIEL (obstructive sleep apnea): Status: Acute (2) Respiratory failure: Status: Acute (3) Morbid obesity: Status: Acute (4) NICM (nonischemic cardiomyopathy): Status: Acute (5) Acute respiratory failure with hypoxia and hypercapnia: Status: Acute Plan 61 year old female with history of 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 Depression/anxiety with agitation Patient with episodes of what she describes as severe anxiety/panic which have resolved No further shouting or anxiety episodes Initially deemed incompetent, re-evaluation patient deemed to have capacity for making medical decisions, daughter is aware continue prozac, risperidal and prn clonidine Acute on chronic respiratory failure with hypoxia and hypercarbia. Resolved Likely multifactorial and secondary to DANIEL, obesity hypoventilation, COPD and CHF Acute on chronic HFrEF. Resolved Recent admission to [facility]. Echo on 03/10 with grade 2 diastolic dysfunction with EF 25-35%. s/p Lasix drip at 10 mg an hour, stopped Cardiology following Strict intake and output Diamox b.i.d. -7.7L Started bumex 2mg daily, 1mg at bedtime Asthma/COPD with chronic respiratory failure on prn home O2 Nocturnal CPAP, tolerated overnight, apparently at home has difficulties with compliance Scheduled DuoNebs will need home oxygen evaluation FELICIA on CKD 3. Resolved Recently admitted to [facility] requiring temporary dialysis Creatinine trending down Nephrology following Acute recurrent RLE cellulitis intermittent recurrence ongoing since 2019. [place] [facility] [place]as[place] H/o chronic venous stasis dermatitis Venous deplex negative for DVT. Xray R ankle neg for osseous abnormality including osteomyelitis Completed treatment with vancomycin(initial treatment) doxycycline seen by ID-likely more secondary to venous stasis rather than cellulitis keep leg elevated, use diallo wrap Hyperklemia prn lokelma follow BMP Acute on chronic normocytic anemia. Stable no evidence of acute blood loss iron studies, b12, folate ok Insulin dependent Type 2 diabetes Sliding scale, ADA diet, continue Lantus HTN Continue amlodipine, isosorbide HLD Continue statin Diabetic neuropathy lyrica and gabapentin on hold to prevent sedation in the setting of worsening renal function initially, now restarted with improvement in mental status Morbid obesity BMI 55.8 Discussed importance of weight management as this may be contributing to worsening of other comorbidities DVT prophylaxis- lovejessicax Attending Dr. Sharma Full code Disposition home with services once physically able to ambulate without assist katheryne patient requires ongoing inpatient hospitalization due to treatment of right lower extremity cellulitis, eval for anxiety, seen and evaluated by psychiatric team deemed to not have capacity to make her own decisions, healthcare proxy invoked. Pending safe discharge to short-term rehab. now requiring management of respiratory failure, chf Quality Stroke Does the patient have a stroke diagnosis?: No VTE Prior VTE?: No VTE Risk Level:: Medical - moderate - high VTE Device Contraindication: Treatment Not Indicated VTE Drug Contraindication: N/A - Med Ordered
[2022-04-09 11:32] VITALS: BP 111/49; PULSE 68; RESP 18; TEMP 36.6; O2SAT 98
[2022-04-09 11:42] LABS: Glucose, Whole Blood 173 mg/dL (60-115)
[2022-04-09 11:46] LABS: Calcium (PTHI) 8.3 mg/dL (8.6-10.4); PTHI 67 pg/mL (16-77)
[2022-04-09] MEDS: Insulin Lispro 100 UNIT/ML 3 ML VIAL SUBCUT ×2 (11:46→20:38)
--- NOTE | 2022-04-09 13:04 | MHC.CM.PN ---
EMR REVIEWED PER ROUNDS, PATIENT MAY BE READY TO DC THURSDAY, DAUGHTER IS LOOKING TO INCREASE SERVICES AT HOME. BVNA HAS BEEN UPDATED.
[2022-04-09] MEDS: TiZANidine HCL 4 MG TABLET PO (14:56)
[2022-04-09 15:43] VITALS: BP 110/53; PULSE 69; RESP 15; TEMP 36.3; O2SAT 94
--- NOTE | 2022-04-09 16:14 | MHC.CLN ---
NUTRITION CONSULT FOR SKIN BREAKDOWN. PATIENT WITH STAGE II WOUND TO MEDIAL COCCYX. DIET=DIABETIC 1800 KCALS, 2 GRAM SODIUM. INTAKE 50-100% FOR PRIOR 4 DAYS. PER NUTRITION ASSESSMENT 04/07, ESTIMATED ENERGY BYUNP=0101 KCALS. DIET PROVIDING 1800 KCALS. NO ADDITIONAL NUTRITION INTERVENTIONS AT THIS TIME SINCE DIET PROVIDING GREATER THAN ESTIMATED NUTRITIONAL NEEDS.
[2022-04-09 16:22] LABS: Glucose, Whole Blood 139 mg/dL (60-115)
[2022-04-09 19:25] VITALS: BP 133/56; PULSE 65; RESP 17; TEMP 36.1; O2SAT 100
[2022-04-09 20:14] LABS: Glucose, Whole Blood 247 mg/dL (60-115)
[2022-04-09] MEDS: Bumetanide 1 MG TABLET PO (20:36)
[2022-04-09] MEDS: Omeprazole 20 MG CAPSULE.DR PO (20:36)
[2022-04-09] MEDS: Atorvastatin Calcium 10 MG TABLET PO (20:37)
[2022-04-09] MEDS: Insulin Glargine,Hum.rec.anlog 100 UNIT/ML 10 ML VIAL 50 UNIT SUBCUT (20:38)
[2022-04-10] VITALS (8 sets, daily range): BP systolic 111–141; BP diastolic 53–66; PULSE 72–90; RESP 15–20; TEMP 35.9–37.2; O2SAT 88–97
[2022-04-10] MEDS: cloNIDine HCL 0.1 MG TABLET PO ×2 (03:31→17:05)
[2022-04-10 07:27] LABS: Glucose, Whole Blood 139 mg/dL (60-115)
[2022-04-10] MEDS: Gabapentin 100 MG CAPSULE 200 MG PO ×2 (07:58→12:21)
[2022-04-10] MEDS: FLUoxetine HCl 20 MG CAPSULE 40 MG PO (07:58)
[2022-04-10] MEDS: Cholecalciferol (Vitamin D3) 25 MCG TABLET PO (07:58)
[2022-04-10] MEDS: Empagliflozin 10 MG TABLET PO (07:58)
[2022-04-10] MEDS: Bumetanide 1 MG TABLET 2 MG PO (07:59)
[2022-04-10] MEDS: Spironolactone 25 MG TABLET PO (07:59)
[2022-04-10] MEDS: Metoprolol Succinate ER 50 MG TAB.ER.24H PO (07:59)
[2022-04-10] MEDS: Aspirin Enteric Coated 81 MG TABLET.DR PO (07:59)
[2022-04-10] MEDS: risperiDONE 1 MG TABLET PO ×2 (07:59→20:08)
[2022-04-10] MEDS: hydrALAZINE HCl 25 MG TABLET PO ×2 (07:59→20:07)
[2022-04-10] MEDS: Isosorbide Mononitrate 30 MG TAB.ER.24H PO (07:59)
[2022-04-10] MEDS: Fluticasone Propionate 100 MCG BLST.W.DEV 2 PUFF INHALE (08:34)
--- NOTE | 2022-04-10 09:30 | PC.NURSE ---
removed ghotra for leaking
[2022-04-10] MEDS: Enoxaparin Sodium 40 MG/0.4 ML SYRINGE SUBCUT (11:20)
[2022-04-10] MEDS: Insulin Lispro 100 UNIT/ML 3 ML VIAL SUBCUT ×3 (11:24→20:08)
[2022-04-10 11:29] LABS: Glucose, Whole Blood 204 mg/dL (60-115)
[2022-04-10] MEDS: Albuterol/Iprat 2.5/0.5MG 3 ML AMPUL.NEB INHALE ×2 (11:49→17:05)
[2022-04-10] MEDS: TiZANidine HCL 4 MG TABLET PO (15:35)
--- NOTE | 2022-04-10 15:44 | P.PNIM_ITS ---
Subjective Subjective Date of Service: 04/10/22 Interval History: Seen and examined this morning Follow-up for cellulitis, anxiety, CHF, respiratory failure Awake, alert this morning appears comfortable No specific complaints this morning, denies shortness of breath, denies cough Review of Systems Review of Systems: Yes all other systems are reviewed and are negative Constitutional Constitutional: Denies chills and Denies fever(s) Cardiovascular Cardiovascular: Denies chest pain and Denies dyspnea Respiratory Respiratory: Denies cough and Denies dyspnea Gastrointestinal Gastrointestinal: Denies abdominal pain Physical Exam Vital Signs: Vital Signs: Last Vital Signs Temp 98.5 F 04/10/22 15:14 Pulse 90 04/10/22 15:14 Resp 20 04/10/22 15:14 BP 141/66 H 04/10/22 15:14 Pulse Ox 88 L 04/10/22 15:14 O2 Del Method 04/10/22 15:14 O2 Flow Rate 4.0 04/10/22 11:19 BMI result Body Mass Index 55.8 Const: General: no acute distress, alert and awake Nutritional Appearance: obese Resp: Other: diminished Effort & Inspection: normal respiratory effort, no respiratory distress and no use of accessory muscles Cardio: Rate: regular rate Heart sounds: S1 normal heart sound present and S2 normal heart sound present GI: Inspection: No distended and Yes obesity Palpation (GI): Soft to palpation and nontender Objective Data Active Medications Acetaminophen (Acetaminophen 325 Mg Tablet) 650 mg PO Q6H PRN PRN Reason: Pain, Mild (Pain Scale 1-3) Last Admin: 04/05/22 02:56 Dose: 650 mg Documented By: MORTEZA Albuterol/Ipratropium (Albuterol/Iprat 2.5/0.5mg 3 Ml Ampul.Neb) 3 ml INHALE RQ6H [facility] Last Admin: 04/10/22 11:49 Dose: 3 ml Documented By: OLIVIA Aspirin (Aspirin Enteric Coated 81 Mg Tablet.) 81 mg PO DAILY [facility] Last Admin: 04/10/22 07:59 Dose: 81 mg Documented By: CHRISTEL Atorvastatin Calcium (Atorvastatin Calcium 10 Mg Tablet) 10 mg PO BEDTIME [facility] Last Admin: 04/09/22 20:37 Dose: 10 mg Documented By: KWASI Bumetanide (Bumetanide 1 Mg Tablet) 2 mg PO DAILY [facility]; Protocol Last Admin: 04/10/22 07:59 Dose: 2 mg Documented By: CHRISTEL Bumetanide (Bumetanide 1 Mg Tablet) 1 mg PO BEDTIME [facility]; Protocol Last Admin: 04/09/22 20:36 Dose: 1 mg Documented By: KWASI Clonidine HCl (Clonidine Hcl 0.1 Mg Tablet) 0.1 mg PO TID PRN; Protocol PRN Reason: hyperarousal, anxiety, panic Last Admin: 04/10/22 03:31 Dose: 0.1 mg Documented By: KWASI Doxycycline Hyclate (Doxycycline Hyclate 100 Mg Tablet) 100 mg PO Q12H [facility] Last Admin: 04/10/22 05:46 Dose: 100 mg Documented By: KWASI Empagliflozin (Empagliflozin 10 Mg Tablet) 10 mg PO DAILY [facility] Last Admin: 04/10/22 07:58 Dose: 10 mg Documented By: CHRISTEL Enoxaparin Sodium (Enoxaparin Sodium 40 Mg/0.4 Ml Syringe) 40 mg SUBCUT Q24H [facility] Last Admin: 04/10/22 11:20 Dose: 40 mg Documented By: CHRISTEL Fluoxetine HCl (Fluoxetine Hcl 20 Mg Capsule) 40 mg PO DAILY [facility] Last Admin: 04/10/22 07:58 Dose: 40 mg Documented By: CHRISTEL Fluticasone Propionate (Fluticasone Propionate 100 Mcg Blst.W.Dev) 2 puff INHALE RBID [facility] Last Admin: 04/10/22 08:34 Dose: 2 puff Documented By: OLIVIA Gabapentin (Gabapentin 400 Mg Capsule) 800 mg PO BEDTIME [facility] Last Admin: 04/02/22 20:25 Dose: 800 mg Documented By: KWASI Gabapentin (Gabapentin 100 Mg Capsule) 200 mg PO BID@0900,1200 [facility] Last Admin: 04/10/22 12:21 Dose: 200 mg Documented By: CHRISTEL Hydralazine HCl (Hydralazine Hcl 25 Mg Tablet) 25 mg PO BID [facility]; Protocol Last Admin: 04/10/22 07:59 Dose: 25 mg Documented By: CHRISTEL Insulin Glargine (Insulin Glargine,Hum.Rec.Anlog 100 Unit/Ml 10 Ml Vial) 50 unit SUBCUT BEDTIME [facility] Last Admin: 04/09/22 20:38 Dose: 50 unit Documented By: KWASI Insulin Human Lispro (Insulin Lispro 100 Unit/Ml 3 Ml Vial) 0 unit SUBCUT QIDACHS [facility]; Protocol Last Admin: 04/10/22 11:24 Dose: 4 unit Documented By: CHRISTEL Isosorbide Mononitrate (Isosorbide Mononitrate 30 Mg Tab.Er.24h) 30 mg PO DAILY [facility]; Protocol Last Admin: 04/10/22 07:59 Dose: 30 mg Documented By: CHRISTEL Meclizine HCl (Meclizine Hcl 25 Mg Tablet) 25 mg PO TID PRN PRN Reason: Dizziness Last Admin: 04/01/22 16:09 Dose: 25 mg Documented By: EZRA Metoprolol Succinate (Metoprolol Succinate Er 50 Mg Tab.Er.24h) 50 mg PO DAILY [facility]; Protocol Last Admin: 04/10/22 07:59 Dose: 50 mg Documented By: CHRISTEL Nystatin (Nystatin Powder 15 Gm Bottle) 1 appl TOPICAL BID [facility]; Protocol Last Admin: 04/10/22 09:39 Dose: Not Given Documented By: CHRISTEL Non-Admin Reason: Patient Refused Omeprazole (Omeprazole 20 Mg Capsule.) 20 mg PO BEDTIME [facility] Last Admin: 04/09/22 20:36 Dose: 20 mg Documented By: KWASI Pharmacy Consult (Consult Rx Perform Med Rec) 1 each MISCELLANE ONCE PRN PRN Reason: Consult order Polyethylene Glycol (Polyethylene Glycol 3350 17 Gm Powd.Pack) 17 gm PO DAILY PRN PRN Reason: constipation Pregabalin (Pregabalin 100 Mg Capsule) 100 mg PO BID [facility] Last Admin: 04/03/22 09:26 Dose: 100 mg Documented By: EZRA Risperidone (Risperidone 1 Mg Tablet) 1 mg PO BID [facility] Last Admin: 04/10/22 07:59 Dose: 1 mg Documented By: CHRISTEL Sodium Chloride (0.9 % Sodium Chloride Flush 3 Ml Syringe) 3 ml IVFLUSH QSHIFT [facility] Last Admin: 04/10/22 15:31 Dose: Not Given Documented By: CHRISTEL Non-Admin Reason: No Access Spironolactone (Spironolactone 25 Mg Tablet) 25 mg PO DAILY [facility]; Protocol Last Admin: 04/10/22 07:59 Dose: 25 mg Documented By: CHRISTEL Tizanidine HCl (Tizanidine Hcl 4 Mg Tablet) 4 mg PO DAILY@1600 [facility] Last Admin: 04/10/22 15:35 Dose: 4 mg Documented By: CHRISTEL Vitamin D (Cholecalciferol (Vitamin D3) 25 Mcg Tablet) 25 mcg PO DAILY [facility] Last Admin: 04/10/22 07:58 Dose: 25 mcg Documented By: CHRISTEL Labs CBC & Chem 7: 04/07/22 09:52 04/07/22 09:52 Labs: Laboratory Results - last 24 hr 04/09/22 04/09/22 04/10/22 15:48 19:31 07:18 POC Glucose 139 H 247 H 139 H 04/10/22 11:20 POC Glucose 204 H Assessment and Plan (1) Acute CHF: Status: Acute Plan 61 year old female with history of 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 Depression/anxiety with agitation Patient with episodes of what she describes as severe anxiety/panic which have resolved No further shouting or anxiety episodes Initially deemed incompetent, re-evaluation patient deemed to have capacity for making medical decisions, daughter is aware continue prozac, risperidal and prn clonidine Acute on chronic respiratory failure with hypoxia and hypercarbia. Resolved Likely multifactorial and secondary to DANIEL, obesity hypoventilation, COPD and CHF home o2 eval prior to d/c Acute on chronic HFrEF. Resolved Recent admission to [facility]. Echo on 03/10 with grade 2 diastolic dysfunction with EF 25-35%. s/p Lasix drip at 10 mg an hour, stopped Cardiology following Strict intake and output Diamox b.i.d. -7.7L Started bumex 2mg daily, 1mg at bedtime Asthma/COPD with chronic respiratory failure on prn home O2 Nocturnal CPAP, has been unable to tolerate during hospitalization, noncompliant at home Scheduled DuoNebs goal o2 89-90% will need home oxygen evaluation FELICIA on CKD 3. Resolved Recently admitted to [facility] requiring temporary dialysis Creatinine trending down Nephrology following Acute recurrent RLE cellulitis intermittent recurrence ongoing since 2019. Treated at [facility] [place] with IV unasyn H/o chronic venous stasis dermatitis Venous deplex negative for DVT. Xray R ankle neg for osseous abnormality including osteomyelitis Initially treated with vancomycin, changed to doxycycline. Seen by ID, recommended 14 days of doxycycline and consider prophylaxis as outpatient. Should follow up with ID as outpatient keep leg elevated, use diallo wrap Hyperklemia prn lokelma follow BMP Acute on chronic normocytic anemia. Stable no evidence of acute blood loss iron studies, b12, folate ok Insulin dependent Type 2 diabetes Sliding scale, ADA diet, continue Lantus HTN Continue amlodipine, isosorbide HLD Continue statin Diabetic neuropathy lyrica and gabapentin on hold to prevent sedation in the setting of worsening renal function initially, now restarted with improvement in mental status Morbid obesity BMI 55.8 Discussed importance of weight management as this may be contributing to worsening of other comorbidities DVT prophylaxis- lovejessicax Attending Dr. Sharma Full code Disposition home with services once physically able to ambulate without assistance patient requires ongoing inpatient hospitalization due to treatment of right lower extremity cellulitis, eval for anxiety. seen by PT - rec STR, patient refusing rehab Quality Stroke Does the patient have a stroke diagnosis?: No VTE Prior VTE?: No VTE Risk Level:: Medical - moderate - high VTE Device Contraindication: Treatment Not Indicated VTE Drug Contraindication: N/A - Med Ordered
[2022-04-10 16:04] LABS: Glucose, Whole Blood 188 mg/dL (60-115)
[2022-04-10 19:39] LABS: Glucose, Whole Blood 237 mg/dL (60-115)
[2022-04-10] MEDS: Atorvastatin Calcium 10 MG TABLET PO (20:07)
[2022-04-10] MEDS: Bumetanide 1 MG TABLET PO (20:07)
[2022-04-10] MEDS: Omeprazole 20 MG CAPSULE.DR PO (20:07)
[2022-04-10] MEDS: Insulin Glargine,Hum.rec.anlog 100 UNIT/ML 10 ML VIAL 50 UNIT SUBCUT (20:08)
[2022-04-11] MEDS: cloNIDine HCL 0.1 MG TABLET PO ×2 (02:14→10:16)
[2022-04-11 03:42] VITALS: BP 106/53; PULSE 77; RESP 20; TEMP 37; O2SAT 95
[2022-04-11 07:08] LABS: Anion Gap 18 (12-20); Blood Urea Nitrogen 48 mg/dL (9-16); Calcium 8.4 mg/dL (8.4-10.2); Carbon Dioxide 29 mmol/L (22-29); Chloride 101 mmol/L (96-108); Creatinine Clr Calc Pharmacy 55.6; Estimated Glomerular Filt Rate 37; Glucose Random 95 mg/dL (60-115); Potassium 3.7 mmol/L (3.3-5.1); Sodium 144 mmol/L (135-145)
[2022-04-11 07:35] LABS: Glucose, Whole Blood 83 mg/dL (60-115)
[2022-04-11 07:46] VITALS: BP 139/62; PULSE 75; RESP 17; TEMP 36.3; O2SAT 88
[2022-04-11] MEDS: Gabapentin 100 MG CAPSULE 200 MG PO ×2 (10:15→11:58)
[2022-04-11] MEDS: risperiDONE 1 MG TABLET PO (10:15)
[2022-04-11] MEDS: Spironolactone 25 MG TABLET PO (10:15)
[2022-04-11] MEDS: Aspirin Enteric Coated 81 MG TABLET.DR PO (10:15)
[2022-04-11] MEDS: Cholecalciferol (Vitamin D3) 25 MCG TABLET PO (10:15)
[2022-04-11] MEDS: FLUoxetine HCl 20 MG CAPSULE 40 MG PO (10:16)
[2022-04-11] MEDS: Bumetanide 1 MG TABLET 2 MG PO (10:16)
[2022-04-11] MEDS: Empagliflozin 10 MG TABLET PO (10:16)
[2022-04-11] MEDS: Isosorbide Mononitrate 30 MG TAB.ER.24H PO (10:16)
[2022-04-11] MEDS: hydrALAZINE HCl 25 MG TABLET PO (10:16)
[2022-04-11] MEDS: Metoprolol Succinate ER 50 MG TAB.ER.24H PO (10:16)
[2022-04-11] MEDS: Nystatin Powder 15 GM BOTTLE 1 APPL TOPICAL (10:17)
[2022-04-11] MEDS: 0.9 % Sodium Chloride Flush 3 ML SYRINGE IVFLUSH (10:17)
[2022-04-11] MEDS: Enoxaparin Sodium 40 MG/0.4 ML SYRINGE SUBCUT (10:17)
[2022-04-11] MEDS: polyethylene glycoL 3350 17 GM POWD.PACK PO (10:20)
--- NOTE | 2022-04-11 10:24 | HO.PM.IMPN ---
Subjective Subjective Date of Service: 04/11/22 Interval History: Seen and examined this morning Follow-up cellulitis, respiratory failure, CHF Denies shortness of breath, cough Says she hasn't gotten out of bed because she's not allowed to but has not worked with PT for the past two days Reporting some knee discomfort Review of Systems Review of Systems: Yes all other systems are reviewed and are negative Constitutional Constitutional: Denies chills and Denies fever(s) Cardiovascular Cardiovascular: Denies chest pain, Denies palpitations and Denies dyspnea Respiratory Respiratory: Denies cough and Denies dyspnea Gastrointestinal Gastrointestinal: Denies abdominal pain, Denies nausea and Denies vomiting Endocrine Endocrine: Denies palpitations Physical Exam Vital Signs: Vital Signs: Last Vital Signs Temp 97.3 F 04/11/22 07:46 Pulse 75 04/11/22 07:46 Resp 17 04/11/22 07:46 BP 139/62 04/11/22 07:46 Pulse Ox 88 L 04/11/22 07:46 O2 Del Method 04/11/22 07:46 O2 Flow Rate 2 04/11/22 03:42 BMI result Body Mass Index 55.8 Const: General: no acute distress, alert and awake Nutritional Appearance: obese Resp: Other: diminished Effort & Inspection: normal respiratory effort, no respiratory distress and no use of accessory muscles Cardio: Rate: regular rate Heart sounds: S1 normal heart sound present and S2 normal heart sound present GI: Inspection: No distended and Yes obesity Palpation (GI): Soft to palpation and nontender Objective Data Active Medications Acetaminophen (Acetaminophen 325 Mg Tablet) 650 mg PO Q6H PRN PRN Reason: Pain, Mild (Pain Scale 1-3) Last Admin: 04/05/22 02:56 Dose: 650 mg Documented By: MORTEZA Aspirin (Aspirin Enteric Coated 81 Mg Tablet.) 81 mg PO DAILY [facility] Last Admin: 04/11/22 10:15 Dose: 81 mg Documented By: TRAVON Atorvastatin Calcium (Atorvastatin Calcium 10 Mg Tablet) 10 mg PO BEDTIME [facility] Last Admin: 04/10/22 20:07 Dose: 10 mg Documented By: KWASI Bumetanide (Bumetanide 1 Mg Tablet) 2 mg PO DAILY [facility]; Protocol Last Admin: 04/11/22 10:16 Dose: 2 mg Documented By: TRAVON Bumetanide (Bumetanide 1 Mg Tablet) 1 mg PO BEDTIME [facility]; Protocol Last Admin: 04/10/22 20:07 Dose: 1 mg Documented By: KWASI Clonidine HCl (Clonidine Hcl 0.1 Mg Tablet) 0.1 mg PO TID PRN; Protocol PRN Reason: hyperarousal, anxiety, panic Last Admin: 04/11/22 10:16 Dose: 0.1 mg Documented By: TRAVON Doxycycline Hyclate (Doxycycline Hyclate 100 Mg Tablet) 100 mg PO Q12H [facility] Last Admin: 04/11/22 10:06 Dose: 100 mg Documented By: TRAVON Empagliflozin (Empagliflozin 10 Mg Tablet) 10 mg PO DAILY [facility] Last Admin: 04/11/22 10:16 Dose: 10 mg Documented By: TRAVON Enoxaparin Sodium (Enoxaparin Sodium 40 Mg/0.4 Ml Syringe) 40 mg SUBCUT Q24H [facility] Last Admin: 04/11/22 10:17 Dose: 40 mg Documented By: TRAVON Fluoxetine HCl (Fluoxetine Hcl 20 Mg Capsule) 40 mg PO DAILY [facility] Last Admin: 04/11/22 10:16 Dose: 40 mg Documented By: TRAVON Fluticasone Propionate (Fluticasone Propionate 100 Mcg Blst.W.Dev) 2 puff INHALE RBID [facility] Last Admin: 04/10/22 19:07 Dose: Not Given Documented By: GARCIA Non-Admin Reason: Patient Refused Gabapentin (Gabapentin 400 Mg Capsule) 800 mg PO BEDTIME [facility] Last Admin: 04/02/22 20:25 Dose: 800 mg Documented By: KWASI Gabapentin (Gabapentin 100 Mg Capsule) 200 mg PO BID@0900,1200 [facility] Last Admin: 04/11/22 10:15 Dose: 200 mg Documented By: TRAVON Hydralazine HCl (Hydralazine Hcl 25 Mg Tablet) 25 mg PO BID [facility]; Protocol Last Admin: 04/11/22 10:16 Dose: 25 mg Documented By: TRAVON Insulin Glargine (Insulin Glargine,Hum.Rec.Anlog 100 Unit/Ml 10 Ml Vial) 50 unit SUBCUT BEDTIME [facility] Last Admin: 04/10/22 20:08 Dose: 50 unit Documented By: KWASI Insulin Human Lispro (Insulin Lispro 100 Unit/Ml 3 Ml Vial) 0 unit SUBCUT QIDACHS [facility]; Protocol Last Admin: 04/11/22 10:17 Dose: Not Given Documented By: TRAVON Non-Admin Reason: No Insulin Coverage Isosorbide Mononitrate (Isosorbide Mononitrate 30 Mg Tab.Er.24h) 30 mg PO DAILY [facility]; Protocol Last Admin: 04/11/22 10:16 Dose: 30 mg Documented By: TRAVON Meclizine HCl (Meclizine Hcl 25 Mg Tablet) 25 mg PO TID PRN PRN Reason: Dizziness Last Admin: 04/01/22 16:09 Dose: 25 mg Documented By: EZRA Metoprolol Succinate (Metoprolol Succinate Er 50 Mg Tab.Er.24h) 50 mg PO DAILY [facility]; Protocol Last Admin: 04/11/22 10:16 Dose: 50 mg Documented By: TRAVON Nystatin (Nystatin Powder 15 Gm Bottle) 1 appl TOPICAL BID [facility]; Protocol Last Admin: 04/11/22 10:17 Dose: 1 appl Documented By: TRAVON Omeprazole (Omeprazole 20 Mg Capsule.Dr) 20 mg PO BEDTIME [facility] Last Admin: 04/10/22 20:07 Dose: 20 mg Documented By: KWASI Pharmacy Consult (Consult Rx Perform Med Rec) 1 each MISCELLANE ONCE PRN PRN Reason: Consult order Polyethylene Glycol (Polyethylene Glycol 3350 17 Gm Powd.Pack) 17 gm PO DAILY PRN PRN Reason: constipation Last Admin: 04/11/22 10:20 Dose: 17 gm Documented By: TRAVON Pregabalin (Pregabalin 100 Mg Capsule) 100 mg PO BID [facility] Last Admin: 04/03/22 09:26 Dose: 100 mg Documented By: EZRA Risperidone (Risperidone 1 Mg Tablet) 1 mg PO BID [facility] Last Admin: 04/11/22 10:15 Dose: 1 mg Documented By: TRAVON Sodium Chloride (0.9 % Sodium Chloride Flush 3 Ml Syringe) [facility] Last Admin: 04/11/22 10:17 Dose: 3 ml Documented By: TRAVON Spironolactone (Spironolactone 25 Mg Tablet) 25 mg PO DAILY [facility]; Protocol Last Admin: 04/11/22 10:15 Dose: 25 mg Documented By: TRAVON Tizanidine HCl (Tizanidine Hcl 4 Mg Tablet) 4 mg PO DAILY@1600 [facility] Last Admin: 04/10/22 15:35 Dose: 4 mg Documented By: CHRISTEL Vitamin D (Cholecalciferol (Vitamin D3) 25 Mcg Tablet) 25 mcg PO DAILY [facility] Last Admin: 04/11/22 10:15 Dose: 25 mcg Documented By: TRAVON Labs CBC & Chem 7: 04/07/22 09:52 04/11/22 05:55 Labs: Laboratory Results - last 24 hr 04/10/22 04/10/22 04/10/22 11:20 15:22 19:23 Anion Gap Estim Creat Clear Calc Estimated GFR POC Glucose 204 H 188 H 237 H Random Glucose Calcium 04/11/22 04/11/22 05:55 07:23 Anion Gap 18 Estim Creat Clear Calc 55.6 Estimated GFR 37 POC Glucose 83 Random Glucose 95 Calcium 8.4 Assessment and Plan (1) DANIEL (obstructive sleep apnea): Status: Acute (2) Cellulitis of right lower extremity: Status: Acute (3) Acute CHF: Status: Acute Plan 61 year old female with history of 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 Depression/anxiety with agitation Patient with episodes of what she describes as severe anxiety/panic No further shouting or anxiety episodes Initially deemed incompetent, re-evaluation patient deemed to have capacity for making medical decisions, daughter is aware continue prozac, risperidal and prn clonidine Acute on chronic respiratory failure with hypoxia and hypercarbia. Resolved. multifactorial and secondary to DANIEL, obesity hypoventilation, COPD and CHF home o2 eval prior to d/c Acute on chronic HFrEF. Resolved Recent admission to [facility]. Echo on 03/10 with grade 2 diastolic dysfunction with EF 25-35%. s/p Lasix drip at 10 mg an hour, stopped diuresed over 7L Started bumex 2mg daily, 1mg at bedtime Asthma/COPD with chronic respiratory failure on prn home O2 Nocturnal CPAP, has been unable to tolerate during hospitalization, noncompliant at home Scheduled DuoNebs goal o2 89-90% per pulmonology will need home oxygen evaluation FELICIA on CKD 3. Resolved Recently admitted to [facility] requiring temporary dialysis Creatinine trending down Nephrology following Acute recurrent RLE cellulitis. Improved intermittent recurrence ongoing since 2019. [place] [facility] H/o chronic venous stasis dermatitis Venous deplex negative for DVT. Xray R ankle neg for osseous abnormality including osteomyelitis Initially treated with vancomycin, changed to doxycycline. Has completed 14 days of antibiotics recommended by ID. Should follow up with ID as outpatient to consider prophylaxis keep leg elevated, use diallo wrap Hyperklemia prn lokelma follow BMP Acute on chronic normocytic anemia. Stable no evidence of acute blood loss iron studies, b12, folate ok H/H has remained stable Insulin dependent Type 2 diabetes Sliding scale, ADA diet, continue Lantus HTN Continue amlodipine, isosorbide HLD Continue statin Diabetic neuropathy lyrica and nighttime dose of gabapentin on hold to prevent sedation initially in the setting of worsening renal function day time dose of gabapentin decreased Morbid obesity BMI 55.8 Discussed importance of weight management as this may be contributing to worsening of other comorbidities DVT prophylaxis- lovenox Attending Dr. Sharma Full code Disposition home with services once physically able to ambulate without assistance patient requires ongoing inpatient hospitalization due to treatment of right lower extremity cellulitis, eval for anxiety. seen by PT - rec STR, patient declinging rehab at this time Quality Stroke Does the patient have a stroke diagnosis?: No VTE Prior VTE?: No VTE Risk Level:: Medical - moderate - high VTE Device Contraindication: Treatment Not Indicated VTE Drug Contraindication: N/A - Med Ordered
[2022-04-11 11:06] VITALS: BP 111/55; PULSE 75; RESP 16; TEMP 36.8; O2SAT 91
[2022-04-11 11:25] LABS: Glucose, Whole Blood 170 mg/dL (60-115)
[2022-04-11] MEDS: Insulin Lispro 100 UNIT/ML 3 ML VIAL SUBCUT ×3 (11:57→21:55)
[2022-04-11] MEDS: Trolamine Salicylate 10 % Cream 85 GM TUBE 1 APPL TOPICAL (11:58)
--- NOTE | 2022-04-11 14:00 | MHC.CLN ---
F/U DIET=DIABETIC 1800 KCALS, 2 GRAM SODIUM, 2000 ML FLUID RESTRICTION. PATIENT WITH USUALLY GOOD INTAKE. STAGE II PI TO COCCYX. CONTINUE TO FOLLOW FOR INTAKE AND WOUND HEALING.
[2022-04-11 15:17] VITALS: BP 148/58; PULSE 75; RESP 19; TEMP 37; O2SAT 91
[2022-04-11 16:02] LABS: Glucose, Whole Blood 182 mg/dL (60-115)
[2022-04-11] MEDS: TiZANidine HCL 4 MG TABLET PO (17:36)
[2022-04-11 19:28] VITALS: BP 148/70; PULSE 68; RESP 18; TEMP 36.6; O2SAT 92
[2022-04-11 20:43] LABS: Glucose, Whole Blood 189 mg/dL (60-115)
[2022-04-11] MEDS: Insulin Glargine,Hum.rec.anlog 100 UNIT/ML 10 ML VIAL 50 UNIT SUBCUT (21:54)
[2022-04-12] VITALS (8 sets, daily range): BP systolic 126–152; BP diastolic 60–73; PULSE 70–85; RESP 16–20; TEMP 36.3–37.1; O2SAT 91–98
[2022-04-12] MEDS: cloNIDine HCL 0.1 MG TABLET PO ×2 (00:01→17:31)
[2022-04-12] MEDS: Omeprazole 20 MG CAPSULE.DR PO ×2 (00:01→20:24)
[2022-04-12] MEDS: Atorvastatin Calcium 10 MG TABLET PO ×2 (00:02→20:24)
[2022-04-12] MEDS: Bumetanide 1 MG TABLET PO ×2 (00:02→21:29)
[2022-04-12] MEDS: risperiDONE 1 MG TABLET PO ×3 (00:02→20:24)
[2022-04-12] MEDS: hydrALAZINE HCl 25 MG TABLET PO ×3 (00:02→20:24)
--- NOTE | 2022-04-12 05:16 | MHC.PIE ---
p; 3 beats v tach notied. pt reports no ch pain or discomfort i; dr novak notified e; will cont to monitor
[2022-04-12 06:47] LABS: Anion Gap 17 (12-20); Blood Urea Nitrogen 48 mg/dL (9-16); Calcium 8.5 mg/dL (8.4-10.2); Carbon Dioxide 30 mmol/L (22-29); Chloride 101 mmol/L (96-108); Creatinine Clr Calc Pharmacy 58.5; Estimated Glomerular Filt Rate 39; Glucose Random 198 mg/dL (60-115); Magnesium 2.3 mg/dL (1.6-2.6); Potassium 3.9 mmol/L (3.3-5.1); Sodium 144 mmol/L (135-145)
[2022-04-12 07:56] LABS: Glucose, Whole Blood 186 mg/dL (60-115)
[2022-04-12] MEDS: Isosorbide Mononitrate 30 MG TAB.ER.24H PO (08:12)
[2022-04-12] MEDS: Bumetanide 1 MG TABLET 2 MG PO ×2 (08:12→20:24)
[2022-04-12] MEDS: Empagliflozin 10 MG TABLET PO (08:12)
[2022-04-12] MEDS: Spironolactone 25 MG TABLET PO (08:12)
[2022-04-12] MEDS: Insulin Lispro 100 UNIT/ML 3 ML VIAL SUBCUT ×4 (08:12→20:24)
[2022-04-12] MEDS: Aspirin Enteric Coated 81 MG TABLET.DR PO (08:13)
[2022-04-12] MEDS: Cholecalciferol (Vitamin D3) 25 MCG TABLET PO (08:13)
[2022-04-12] MEDS: Gabapentin 100 MG CAPSULE 200 MG PO ×2 (08:13→11:49)
[2022-04-12] MEDS: Nystatin Powder 15 GM BOTTLE 1 APPL TOPICAL ×2 (08:13→20:25)
[2022-04-12] MEDS: Metoprolol Succinate ER 50 MG TAB.ER.24H PO (08:13)
[2022-04-12] MEDS: FLUoxetine HCl 20 MG CAPSULE 40 MG PO (08:13)
[2022-04-12] MEDS: Fluticasone Propionate 100 MCG BLST.W.DEV 2 PUFF INHALE ×2 (08:53→21:00)
[2022-04-12] MEDS: Enoxaparin Sodium 40 MG/0.4 ML SYRINGE SUBCUT (10:11)
--- NOTE | 2022-04-12 10:28 | MHC.CM.PN ---
CM ATTEMPTING TO CONTACT PT'S DTR/ALTERNATE JALEN RUSLAN [phone], NO ANSWER AND MESSAGE LEFT W/CM CONTACT NUMBER, PER HOSPITALIST IF JALEN WILL BE STAYING PT, PT CAN D/C HOME W/[facility] TODAY. CM WILL REATTEMPT LATER THIS AM.
--- NOTE | 2022-04-12 11:03 | P.PNIM_ITS ---
Subjective Subjective Date of Service: 04/12/22 Interval History: seen and examined this morning follow up for cellulitis, chf, respiratory failure no overnight events wants to go home Review of Systems Review of Systems: Yes all other systems are reviewed and are negative Constitutional Constitutional: Denies chills and Denies fever(s) ENT Ears, Nose, Mouth, and Throat: Denies dizziness Cardiovascular Cardiovascular: Denies chest pain, Denies palpitations and Denies dyspnea Respiratory Respiratory: Denies cough and Denies dyspnea Gastrointestinal Gastrointestinal: Denies abdominal pain, Denies nausea and Denies vomiting Neurologic Neurologic: Denies dizziness Endocrine Endocrine: Denies palpitations Physical Exam Vital Signs: Vital Signs: Last Vital Signs Temp 97.3 F 04/12/22 07:46 Pulse 72 04/12/22 08:55 Resp 18 04/12/22 08:55 BP 128/60 04/12/22 07:46 Pulse Ox 96 04/12/22 07:46 O2 Del Method 04/12/22 07:46 O2 Flow Rate 4 04/12/22 07:46 BMI result Body Mass Index 55.8 Const: General: no acute distress, alert and awake Nutritional Appearance: obese Resp: Other: diminished Effort & Inspection: normal respiratory effort, no respiratory distress and no use of accessory muscles Cardio: Rate: regular rate Heart sounds: S1 normal heart sound present and S2 normal heart sound present GI: Inspection: No distended and Yes obesity Palpation (GI): Soft to palpation and nontender Extrem: Other: Able to move all 4 extremities spontaneously leg edema improved Objective Data Active Medications Acetaminophen (Acetaminophen 325 Mg Tablet) 650 mg PO Q6H PRN PRN Reason: Pain, Mild (Pain Scale 1-3) Last Admin: 04/05/22 02:56 Dose: 650 mg Documented By: MORTEZA Aspirin (Aspirin Enteric Coated 81 Mg Tablet.) 81 mg PO DAILY [facility] Last Admin: 04/12/22 08:13 Dose: 81 mg Documented By: RADHA Atorvastatin Calcium (Atorvastatin Calcium 10 Mg Tablet) 10 mg PO BEDTIME [facility] Last Admin: 04/12/22 00:02 Dose: 10 mg Documented By: ALANNAH Bumetanide (Bumetanide 1 Mg Tablet) 2 mg PO DAILY [facility]; Protocol Last Admin: 04/12/22 08:12 Dose: 2 mg Documented By: RADHA Bumetanide (Bumetanide 1 Mg Tablet) 1 mg PO BEDTIME [facility]; Protocol Last Admin: 04/12/22 00:02 Dose: 1 mg Documented By: ALANNAH Clonidine HCl (Clonidine Hcl 0.1 Mg Tablet) 0.1 mg PO TID PRN; Protocol PRN Reason: hyperarousal, anxiety, panic Last Admin: 04/12/22 00:01 Dose: 0.1 mg Documented By: ALANNAH Empagliflozin (Empagliflozin 10 Mg Tablet) 10 mg PO DAILY [facility] Last Admin: 04/12/22 08:12 Dose: 10 mg Documented By: RADHA Enoxaparin Sodium (Enoxaparin Sodium 40 Mg/0.4 Ml Syringe) 40 mg SUBCUT Q24H [facility] Last Admin: 04/12/22 10:11 Dose: 40 mg Documented By: RADHA Fluoxetine HCl (Fluoxetine Hcl 20 Mg Capsule) 40 mg PO DAILY [facility] Last Admin: 04/12/22 08:13 Dose: 40 mg Documented By: RADHA Fluticasone Propionate (Fluticasone Propionate 100 Mcg Blst.W.Dev) 2 puff INHALE RBID [facility] Last Admin: 04/12/22 08:53 Dose: 2 puff Documented By: DANIELA Gabapentin (Gabapentin 400 Mg Capsule) 800 mg PO BEDTIME [facility] Last Admin: 04/02/22 20:25 Dose: 800 mg Documented By: KWASI Gabapentin (Gabapentin 100 Mg Capsule) 200 mg PO BID@0900,1200 [facility] Last Admin: 04/12/22 08:13 Dose: 200 mg Documented By: RADHA Hydralazine HCl (Hydralazine Hcl 25 Mg Tablet) 25 mg PO BID [facility]; Protocol Last Admin: 04/12/22 08:12 Dose: 25 mg Documented By: RADHA Insulin Glargine (Insulin Glargine,Hum.Rec.Anlog 100 Unit/Ml 10 Ml Vial) 50 unit SUBCUT BEDTIME [facility] Last Admin: 04/11/22 21:54 Dose: 50 unit Documented By: ALANNAH Insulin Human Lispro (Insulin Lispro 100 Unit/Ml 3 Ml Vial) 0 unit SUBCUT QIDACHS [facility]; Protocol Last Admin: 04/12/22 08:12 Dose: 2 unit Documented By: RADHA Isosorbide Mononitrate (Isosorbide Mononitrate 30 Mg Tab.Er.24h) 30 mg PO DAILY [facility]; Protocol Last Admin: 04/12/22 08:12 Dose: 30 mg Documented By: RADHA Meclizine HCl (Meclizine Hcl 25 Mg Tablet) 25 mg PO TID PRN PRN Reason: Dizziness Last Admin: 04/01/22 16:09 Dose: 25 mg Documented By: EZRA Metoprolol Succinate (Metoprolol Succinate Er 50 Mg Tab.Er.24h) 50 mg PO DAILY [facility]; Protocol Last Admin: 04/12/22 08:13 Dose: 50 mg Documented By: RADHA Nystatin (Nystatin Powder 15 Gm Bottle) 1 appl TOPICAL BID [facility]; Protocol Last Admin: 04/12/22 08:13 Dose: 1 appl Documented By: RADHA Omeprazole (Omeprazole 20 Mg Capsule.Dr) 20 mg PO BEDTIME [facility] Last Admin: 04/12/22 00:01 Dose: 20 mg Documented By: ALANNAH Pharmacy Consult (Consult Rx Perform Med Rec) 1 each MISCELLANE ONCE PRN PRN Reason: Consult order Polyethylene Glycol (Polyethylene Glycol 3350 17 Gm Powd.Pack) 17 gm PO DAILY PRN PRN Reason: constipation Last Admin: 04/11/22 10:20 Dose: 17 gm Documented By: TRAVON Pregabalin (Pregabalin 100 Mg Capsule) 100 mg PO BID [facility] Last Admin: 04/03/22 09:26 Dose: 100 mg Documented By: EZRA Risperidone (Risperidone 1 Mg Tablet) 1 mg PO BID [facility] Last Admin: 04/12/22 08:13 Dose: 1 mg Documented By: RADHA Sodium Chloride (0.9 % Sodium Chloride Flush 3 Ml Syringe) 3 ml IVFLUSH QSHIFT [facility] Last Admin: 04/12/22 08:13 Dose: Not Given Documented By: RADHA Non-Admin Reason: No Access Spironolactone (Spironolactone 25 Mg Tablet) 25 mg PO DAILY [facility]; Protocol Last Admin: 04/12/22 08:12 Dose: 25 mg Documented By: RADHA Tizanidine HCl (Tizanidine Hcl 4 Mg Tablet) 4 mg PO DAILY@1600 [facility] Last Admin: 04/11/22 17:36 Dose: 4 mg Documented By: SARAH Vitamin D (Cholecalciferol (Vitamin D3) 25 Mcg Tablet) 25 mcg PO DAILY [facility] Last Admin: 04/12/22 08:13 Dose: 25 mcg Documented By: RADHA Labs CBC & Chem 7: 04/07/22 09:52 04/12/22 06:11 Labs: Laboratory Results - last 24 hr 04/11/22 04/11/22 04/11/22 11:08 15:57 20:30 Anion Gap Estim Creat Clear Calc Estimated GFR POC Glucose 170 H 182 H 189 H Random Glucose Calcium Magnesium 04/12/22 04/12/22 06:11 07:52 Anion Gap 17 Estim Creat Clear Calc 58.5 Estimated GFR 39 POC Glucose 186 H Random Glucose 198 H Calcium 8.5 Magnesium 2.3 Assessment and Plan (1) Adjustment disorder with mixed anxiety and depressed mood: Status: Acute (2) Acute CHF: Status: Acute (3) FELICIA (acute kidney injury): Status: Acute Plan 61 year old female with history of 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 Depression/anxiety with agitation Patient with episodes of what she describes as severe anxiety/panic No further shouting or anxiety episodes Initially deemed incompetent, re-evaluation patient deemed to have capacity for making medical decisions, daughter is aware continue prozac startedon risperidal and prn clonidine this admission and haldol discontinued Acute on chronic respiratory failure with hypoxia and hypercarbia. Resolved. multifactorial and secondary to DANIEL, obesity hypoventilation, COPD and CHF home o2 eval prior to d/c Acute on chronic HFrEF. Resolved Recent admission to [facility]. Echo on 03/10 with grade 2 diastolic dysfunction with EF 25-35%. s/p Lasix drip at 10 mg an hour, stopped diuresed over 7L Started bumex 2mg daily, 1mg at bedtime started on Jardiance, aldactone as well Asthma/COPD with chronic respiratory failure on prn home O2 Nocturnal CPAP, has been unable to tolerate during hospitalization, noncompliant at home Scheduled DuoNebs goal o2 89-90% per pulmonology will need home oxygen evaluation FELICIA on CKD 3. Resolved Recently admitted to [facility] requiring temporary dialysis Creatinine trending down Nephrology following Acute recurrent RLE cellulitis. Improved intermittent recurrence ongoing since 2019. [place] [facility] H/o chronic venous stasis dermatitis Venous deplex negative for DVT. Xray R ankle neg for osseous abnormality including osteomyelitis Initially treated with vancomycin, changed to doxycycline. Has completed 14 days of antibiotics recommended by ID. Should follow up with ID as outpatient to consider prophylaxis keep leg elevated, use diallo wrap Hyperklemia prn lokelma follow BMP Acute on chronic normocytic anemia. Stable no evidence of acute blood loss iron studies, b12, folate ok H/H has remained stable Insulin dependent Type 2 diabetes Sliding scale, ADA diet, continue Lantus HTN Continue amlodipine, isosorbide HLD Continue statin Diabetic neuropathy lyrica and nighttime dose of gabapentin on hold to prevent sedation initially in the setting of worsening renal function day time dose of gabapentin decreased Morbid obesity BMI 55.8 Discussed importance of weight management as this may be contributing to worsening of other comorbidities DVT prophylaxis- lovenox Attending Dr. Sharma Full code Disposition home with services once physically able to ambulate without assistance patient requires ongoing inpatient hospitalization due to treatment of right lower extremity cellulitis, eval for anxiety. seen by PT - rec STR or home with 09/02 care, patient declining rehab at this time Quality Stroke Does the patient have a stroke diagnosis?: No VTE Prior VTE?: No VTE Risk Level:: Medical - moderate - high VTE Device Contraindication: Treatment Not Indicated VTE Drug Contraindication: N/A - Med Ordered
[2022-04-12 11:35] LABS: Glucose, Whole Blood 279 mg/dL (60-115)
[2022-04-12 15:53] LABS: Glucose, Whole Blood 242 mg/dL (60-115)
[2022-04-12] MEDS: TiZANidine HCL 4 MG TABLET PO (16:27)
[2022-04-12 20:06] LABS: Glucose, Whole Blood 284 mg/dL (60-115)
[2022-04-12] MEDS: Insulin Glargine,Hum.rec.anlog 100 UNIT/ML 10 ML VIAL 50 UNIT SUBCUT (20:24)
[2022-04-12] MEDS: 0.9 % Sodium Chloride Flush 3 ML SYRINGE IVFLUSH (21:22)
[2022-04-13] VITALS (7 sets, daily range): BP systolic 114–153; BP diastolic 53–67; PULSE 69–74; RESP 18; TEMP 36.3–37.5; O2SAT 91–98
[2022-04-13] MEDS: cloNIDine HCL 0.1 MG TABLET PO ×2 (01:03→07:30)
[2022-04-13] MEDS: oxyCODONE HCl Immed Release 5 MG TABLET PO (03:06)
[2022-04-13] MEDS: Acetaminophen 325 MG TABLET 650 MG PO (03:06)
[2022-04-13 03:18] LABS: Troponin-I High Sensitivity 16.3 ng/L (<3.5-17.0)
[2022-04-13 07:10] LABS: Glucose, Whole Blood 191 mg/dL (60-115)
[2022-04-13] MEDS: Bumetanide 1 MG TABLET 2 MG PO (07:39)
[2022-04-13] MEDS: Cholecalciferol (Vitamin D3) 25 MCG TABLET PO (07:39)
[2022-04-13] MEDS: Gabapentin 100 MG CAPSULE 200 MG PO ×2 (07:40→11:52)
[2022-04-13] MEDS: FLUoxetine HCl 20 MG CAPSULE 40 MG PO (07:40)
[2022-04-13] MEDS: risperiDONE 1 MG TABLET PO ×2 (07:40→20:52)
[2022-04-13] MEDS: Metoprolol Succinate ER 50 MG TAB.ER.24H PO (07:40)
[2022-04-13] MEDS: Isosorbide Mononitrate 30 MG TAB.ER.24H PO (07:40)
[2022-04-13] MEDS: Aspirin Enteric Coated 81 MG TABLET.DR PO (07:40)
[2022-04-13] MEDS: Spironolactone 25 MG TABLET PO (07:40)
[2022-04-13] MEDS: hydrALAZINE HCl 25 MG TABLET PO ×2 (07:41→19:51)
[2022-04-13] MEDS: Insulin Lispro 100 UNIT/ML 3 ML VIAL SUBCUT ×4 (07:41→19:51)
[2022-04-13] MEDS: Nystatin Powder 15 GM BOTTLE 1 APPL TOPICAL ×2 (07:41→20:52)
[2022-04-13] MEDS: Empagliflozin 10 MG TABLET PO (07:41)
--- NOTE | 2022-04-13 09:47 | HO.PM.IMPN ---
Subjective Subjective Date of Service: 04/13/22 Interval History: seen and examined this morning follow up for cellulitis, chf, respiratory failure no overnight events wants to go home Review of Systems no fever no chills no pain in the legs Physical Exam Vital Signs: Vital Signs: Last Vital Signs Temp 99.5 F 04/13/22 08:00 Pulse 70 04/13/22 08:00 Resp 18 04/13/22 08:00 BP 114/56 L 04/13/22 08:00 Pulse Ox 94 04/13/22 08:00 O2 Del Method 04/13/22 08:00 O2 Flow Rate 4 04/12/22 07:46 BMI result Body Mass Index 55.8 Const: General: no acute distress, alert and awake Nutritional Appearance: obese Resp: Other: diminished Effort & Inspection: normal respiratory effort, no respiratory distress and no use of accessory muscles Cardio: Rate: regular rate Heart sounds: S1 normal heart sound present and S2 normal heart sound present GI: Inspection: No distended and Yes obesity Palpation (GI): Soft to palpation and nontender Extrem: Other: Able to move all 4 extremities spontaneously leg edema improved Objective Data Active Medications Acetaminophen (Acetaminophen 325 Mg Tablet) 650 mg PO Q6H PRN PRN Reason: Pain, Mild (Pain Scale 1-3) Last Admin: 04/13/22 03:06 Dose: 650 mg Documented By: RANJANA Aspirin (Aspirin Enteric Coated 81 Mg Tablet.Dr) 81 mg PO DAILY [facility] Last Admin: 04/13/22 07:40 Dose: 81 mg Documented By: RADHA Atorvastatin Calcium (Atorvastatin Calcium 10 Mg Tablet) 10 mg PO BEDTIME [facility] Last Admin: 04/12/22 20:24 Dose: 10 mg Documented By: RANJANA Bumetanide (Bumetanide 1 Mg Tablet) 2 mg PO DAILY [facility]; Protocol Last Admin: 04/13/22 07:39 Dose: 2 mg Documented By: RADHA Bumetanide (Bumetanide 1 Mg Tablet) 1 mg PO BEDTIME [facility]; Protocol Last Admin: 04/12/22 21:29 Dose: 1 mg Documented By: RANJANA Clonidine HCl (Clonidine Hcl 0.1 Mg Tablet) 0.1 mg PO TID PRN; Protocol PRN Reason: hyperarousal, anxiety, panic Last Admin: 04/13/22 07:30 Dose: 0.1 mg Documented By: RADHA Empagliflozin (Empagliflozin 10 Mg Tablet) 10 mg PO DAILY [facility] Last Admin: 04/13/22 07:41 Dose: 10 mg Documented By: RADHA Enoxaparin Sodium (Enoxaparin Sodium 40 Mg/0.4 Ml Syringe) 40 mg SUBCUT Q24H [facility] Last Admin: 04/12/22 10:11 Dose: 40 mg Documented By: RADHA Fluoxetine HCl (Fluoxetine Hcl 20 Mg Capsule) 40 mg PO DAILY [facility] Last Admin: 04/13/22 07:40 Dose: 40 mg Documented By: RADHA Fluticasone Propionate (Fluticasone Propionate 100 Mcg Blst.W.Dev) 2 puff INHALE RBID [facility] Last Admin: 04/12/22 21:00 Dose: 2 puff Documented By: XIOMARA Gabapentin (Gabapentin 400 Mg Capsule) 800 mg PO BEDTIME [facility] Last Admin: 04/02/22 20:25 Dose: 800 mg Documented By: KWASI Gabapentin (Gabapentin 100 Mg Capsule) 200 mg PO BID@0900,1200 [facility] Last Admin: 04/13/22 07:40 Dose: 200 mg Documented By: RADHA Hydralazine HCl (Hydralazine Hcl 25 Mg Tablet) 25 mg PO BID [facility]; Protocol Last Admin: 04/13/22 07:41 Dose: 25 mg Documented By: RADHA Insulin Glargine (Insulin Glargine,Hum.Rec.Anlog 100 Unit/Ml 10 Ml Vial) 50 unit SUBCUT BEDTIME [facility] Last Admin: 04/12/22 20:24 Dose: 50 unit Documented By: RANJANA Insulin Human Lispro (Insulin Lispro 100 Unit/Ml 3 Ml Vial) 0 unit SUBCUT QIDACHS [facility]; Protocol Last Admin: 04/13/22 07:41 Dose: 2 unit Documented By: RADHA Isosorbide Mononitrate (Isosorbide Mononitrate 30 Mg Tab.Er.24h) 30 mg PO DAILY [facility]; Protocol Last Admin: 04/13/22 07:40 Dose: 30 mg Documented By: RADHA Meclizine HCl (Meclizine Hcl 25 Mg Tablet) 25 mg PO TID PRN PRN Reason: Dizziness Last Admin: 04/01/22 16:09 Dose: 25 mg Documented By: EZRA Metoprolol Succinate (Metoprolol Succinate Er 50 Mg Tab.Er.24h) 50 mg PO DAILY [facility]; Protocol Last Admin: 04/13/22 07:40 Dose: 50 mg Documented By: RADHA Nystatin (Nystatin Powder 15 Gm Bottle) 1 appl TOPICAL BID [facility]; Protocol Last Admin: 04/13/22 07:41 Dose: 1 appl Documented By: RADHA Omeprazole (Omeprazole 20 Mg Capsule.) 20 mg PO BEDTIME [facility] Last Admin: 04/12/22 20:24 Dose: 20 mg Documented By: RANJANA Pharmacy Consult (Consult Rx Perform Med Rec) 1 each MISCELLANE ONCE PRN PRN Reason: Consult order Polyethylene Glycol (Polyethylene Glycol 3350 17 Gm Powd.Pack) 17 gm PO DAILY PRN PRN Reason: constipation Last Admin: 04/11/22 10:20 Dose: 17 gm Documented By: TRAVON Pregabalin (Pregabalin 100 Mg Capsule) 100 mg PO BID [facility] Last Admin: 04/03/22 09:26 Dose: 100 mg Documented By: EZRA Risperidone (Risperidone 1 Mg Tablet) 1 mg PO BID [facility] Last Admin: 04/13/22 07:40 Dose: 1 mg Documented By: RADHA Sodium Chloride (0.9 % Sodium Chloride Flush 3 Ml Syringe) 3 ml IVFLUSH QSHIFT [facility] Last Admin: 04/13/22 07:35 Dose: Not Given Documented By: RADHA Non-Admin Reason: No Access Spironolactone (Spironolactone 25 Mg Tablet) 25 mg PO DAILY [facility]; Protocol Last Admin: 04/13/22 07:40 Dose: 25 mg Documented By: RADHA Tizanidine HCl (Tizanidine Hcl 4 Mg Tablet) 4 mg PO DAILY@1600 [facility] Last Admin: 04/12/22 16:27 Dose: 4 mg Documented By: RADHA Vitamin D (Cholecalciferol (Vitamin D3) 25 Mcg Tablet) 25 mcg PO DAILY [facility] Last Admin: 04/13/22 07:39 Dose: 25 mcg Documented By: RADHA Labs CBC & Chem 7: 04/07/22 09:52 04/12/22 06:11 Labs: Laboratory Results - last 24 hr 04/12/22 04/12/22 04/12/22 11:10 15:44 19:29 POC Glucose 279 H 242 H 284 H 04/13/22 07:01 POC Glucose 191 H Assessment and Plan (1) Adjustment disorder with mixed anxiety and depressed mood: Status: Acute (2) Acute CHF: Status: Acute (3) FELICIA (acute kidney injury): Status: Acute Plan 61 year old female with history of 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 Depression/anxiety with agitation Patient with episodes of what she describes as severe anxiety/panic No further shouting or anxiety episodes Initially deemed incompetent, re-evaluation patient deemed to have capacity for making medical decisions, daughter is aware continue prozac startedon risperidal and prn clonidine this admission and haldol discontinued Acute on chronic respiratory failure with hypoxia and hypercarbia. Resolved. multifactorial and secondary to DANIEL, obesity hypoventilation, COPD and CHF home o2 eval prior to d/c Acute on chronic HFrEF. Resolved Recent admission to [facility]. Echo on 03/10 with grade 2 diastolic dysfunction with EF 25-35%. s/p Lasix drip at 10 mg an hour, stopped diuresed over 7L Started bumex 2mg daily, 1mg at bedtime started on Jardiance, aldactone as well Asthma/COPD with chronic respiratory failure on prn home O2 Nocturnal CPAP, has been unable to tolerate during hospitalization, noncompliant at home Scheduled DuoNebs goal o2 89-90% per pulmonology will need home oxygen evaluation FELICIA on CKD 3. Resolved Recently admitted to [facility] requiring temporary dialysis Creatinine trending down Nephrology following Acute recurrent RLE cellulitis. Improved intermittent recurrence ongoing since 2019. [place] [facility] [place] H/o chronic venous stasis dermatitis Venous deplex negative for DVT. Xray R ankle neg for osseous abnormality including osteomyelitis Initially treated with vancomycin, changed to doxycycline. Has completed 14 days of antibiotics recommended by ID. Should follow up with ID as outpatient to consider prophylaxis keep leg elevated, use diallo wrap Hyperklemia prn lokelma follow BMP Acute on chronic normocytic anemia. Stable no evidence of acute blood loss iron studies, b12, folate ok H/H has remained stable Insulin dependent Type 2 diabetes Sliding scale, ADA diet, continue Lantus HTN Continue amlodipine, isosorbide HLD Continue statin Diabetic neuropathy lyrica and nighttime dose of gabapentin on hold to prevent sedation initially in the setting of worsening renal function day time dose of gabapentin decreased Morbid obesity BMI 55.8 Discussed importance of weight management as this may be contributing to worsening of other comorbidities DVT prophylaxis- lovenox Attending Dr. Sharma Full code Disposition home with services once physically able to ambulate without assistance patient requires ongoing inpatient hospitalization due to treatment of right lower extremity cellulitis, eval for anxiety. seen by PT - rec STR or home with 09/02 care, patient declining rehab at this time, anticipating dc in 24 hours Quality Stroke Does the patient have a stroke diagnosis?: No VTE Prior VTE?: No VTE Risk Level:: Medical - moderate - high VTE Device Contraindication: Treatment Not Indicated VTE Drug Contraindication: N/A - Med Ordered
[2022-04-13 11:33] LABS: Glucose, Whole Blood 251 mg/dL (60-115)
[2022-04-13] MEDS: Enoxaparin Sodium 40 MG/0.4 ML SYRINGE SUBCUT (11:51)
[2022-04-13 15:47] LABS: Glucose, Whole Blood 209 mg/dL (60-115)
[2022-04-13] MEDS: TiZANidine HCL 4 MG TABLET PO (16:34)
[2022-04-13] MEDS: Bumetanide 1 MG TABLET PO (19:50)
[2022-04-13] MEDS: Atorvastatin Calcium 10 MG TABLET PO (19:51)
[2022-04-13] MEDS: Insulin Glargine,Hum.rec.anlog 100 UNIT/ML 10 ML VIAL 50 UNIT SUBCUT (19:51)
[2022-04-13 20:05] LABS: Glucose, Whole Blood 227 mg/dL (60-115)
[2022-04-13] MEDS: Fluticasone Propionate 100 MCG BLST.W.DEV 2 PUFF INHALE (20:28)
[2022-04-13] MEDS: Omeprazole 20 MG CAPSULE.DR PO (20:52)
--- NOTE | 2022-04-14 | ECG_ITS ---
Test Reason : cp Blood Pressure : / mmHG Vent. Rate : 079 BPM Atrial Rate : 079 BPM P-R Int : 156 ms QRS Dur : 104 ms QT Int : 462 ms P-R-T Axes : 067 046 062 degrees QTc Int : 529 ms Sinus rhythm with frequent Premature ventricular complexes Prolonged QT Abnormal ECG When compared with ECG of 26-MAR-2022 03:26, Heart rate has decreased Referred By: Bhargav Atkins Electronically Signed By:KEYONA SANTANA
[2022-04-14 03:03] VITALS: BP 116/68; PULSE 64; RESP 18; TEMP 36.9; O2SAT 97
[2022-04-14] MEDS: cloNIDine HCL 0.1 MG TABLET PO (06:24)
[2022-04-14 07:14] LABS: Glucose, Whole Blood 240 mg/dL (60-115)
[2022-04-14] MEDS: Insulin Lispro 100 UNIT/ML 3 ML VIAL SUBCUT ×2 (07:33→11:50)
[2022-04-14 07:35] VITALS: BP 132/58; PULSE 72; RESP 18; TEMP 36.2; O2SAT 93
[2022-04-14] MEDS: Fluticasone Propionate 100 MCG BLST.W.DEV 2 PUFF INHALE (08:15)
[2022-04-14 08:17] VITALS: PULSE 73; RESP 20; O2SAT 93
[2022-04-14] MEDS: Empagliflozin 10 MG TABLET PO (09:03)
[2022-04-14] MEDS: Spironolactone 25 MG TABLET PO (09:03)
[2022-04-14] MEDS: Cholecalciferol (Vitamin D3) 25 MCG TABLET PO (09:03)
[2022-04-14] MEDS: Metoprolol Succinate ER 50 MG TAB.ER.24H PO (09:03)
[2022-04-14] MEDS: Isosorbide Mononitrate 30 MG TAB.ER.24H PO (09:03)
[2022-04-14] MEDS: hydrALAZINE HCl 25 MG TABLET PO (09:03)
[2022-04-14] MEDS: FLUoxetine HCl 20 MG CAPSULE 40 MG PO (09:03)
[2022-04-14] MEDS: Gabapentin 100 MG CAPSULE 200 MG PO ×2 (09:04→12:39)
[2022-04-14] MEDS: Aspirin Enteric Coated 81 MG TABLET.DR PO (09:04)
[2022-04-14] MEDS: Enoxaparin Sodium 40 MG/0.4 ML SYRINGE SUBCUT (09:05)
[2022-04-14] MEDS: risperiDONE 1 MG TABLET PO (09:05)
[2022-04-14] MEDS: Bumetanide 1 MG TABLET 2 MG PO (09:06)
[2022-04-14] MEDS: Nystatin Powder 15 GM BOTTLE 1 APPL TOPICAL (09:09)
--- NOTE | 2022-04-14 09:12 | P.DS_ITS ---
DS: Providers Provider Date of Service: 04/14/22 Date of admission: 03/27/22 13:38 Primary care physician: Tavo Huber MD Consults: 03/26/22 09:29 Consult to Infectious Diseases Routine Consulting Provider: Gina Macedo Reason for consultation: cellulitis, not improving, treated with Unasyn at [facility] [place] last week 03/28/22 10:52 Consult to Psychiatry Routine Consulting Provider: Psych Covering Reason for consultation: anxiety/panic Has provider been notified: No 04/01/22 12:31 Consult to Psychiatry Routine Consulting Provider: Psych Covering Reason for consultation: capacity Has provider been notified: No 04/03/22 10:25 Consult to Nephrology Routine Consulting Provider: Jesus Gilbert Reason for consultation: felicia Has provider been notified: No 04/03/22 11:02 Consult to Cardiology Routine Consulting Provider: Joaquín Hunter Reason for consultation: chf Has provider been notified: No 04/03/22 14:24 Consult to Pulmonology Routine Consulting Provider: Ana Sweet Reason for consultation: acute on chronic respiratory failure Has provider been notified: No 04/08/22 10:46 Consult to Psychiatry Routine Consulting Provider: Psych Covering Reason for consultation: re-eval for competency Has provider been notified: No DS: Diagnosis Discharge Diagnosis (1) Adjustment disorder with mixed anxiety and depressed mood: Status: Inactive (2) Acute CHF: Status: Resolved (3) FELICIA (acute kidney injury): Status: Resolved DS: Summary Hospital Course Hospital Course: HP as per admitting provider 61 year old female with history of uncontrolled insulin dependent type 2 diabetes with pvd and neuropathy, chronic venous stasis dermatitis, asthma/COPD overlap with chronic respiratory failure on prn home O2, nonischemic cardiomyopathy, htn, hld, and morbid obesity presented to the ED this morning for evaluation of redness and swelling RLE which has been flaring intermittently since 2019 worsening prior to admission to [facility] last week. She was admitted for acute on chronic CHF. She also developed hyperkalemia with temporary dialysis catheter placed but was dialyzed twice with resolution of FELICIA and hyperkalemia. Now on furosemide BID. Required O2 while hospitalized but sob improved and is back to baseline. She was also treated with unasyn while admitted for RLE cellulitis. Not discharged on oral abx. She feels this has not improved. She reports chronic 10/10 pain of the right knee and ankle, but no pain in the banuelos or calf.? No leukocytosis. Afebrile. Vitals stable, pt currently on 1L O2 nc O2 sat 93%. Venous duplex negative for DVT. Ankle xray negative for acute osseous abnormality including? osteomyelitis or septic arthritis. CXR with some degree of pulmonary congestion, but no effusions. Denies sob, cp . Acute on chronic respiratory failure with hypoxia and hypercarbia Likely multifactorial and secondary to DANIEL, obesity hypoventilation, COPD and CHF Recommend using CPAP at nighttime Home O2 evaluation +++++ Acute on chronic HFrEF Recent admission to [facility]. Echo on 03/10 with grade 2 diastolic dysfunction with EF 25-35%. s/p Lasix drip at 10 mg an hour, stopped put out 7.7 L Cardiology followed Diamox b.i.d. Bumex 2mg daily, 1mg at bedtime Asthma/COPD with chronic respiratory failure on prn home O2 Nocturnal CPAP, tolerated overnight, apparently at home has difficulties with compliance Scheduled DuoNebs will need home oxygen evaluation FELICIA on CKD 3. Resolved Recently admitted to [facility] requiring temporary dialysis Nephrology followed Depression/anxiety with agitation Patient with episodes of what she describes as severe anxiety/panic. still having shouting/anxiety episodes continue prozac, risperidal and prn clonidine Initially deemed not competent and healthcare proxy was invoked however patient's mental status cleared up and subsequently was re-evaluated by psychiatry team +++++ Acute recurrent RLE cellulitis intermittent recurrence ongoing since 2019. Treated at [facility] [place] with IV unasyn H/o chronic venous stasis dermatitis Venous deplex negative for DVT. Xray R ankle neg for osseous abnormality includ ing osteomyelitis initially treated with vanco, will transition to doxycycline seen by ID- may be more venous stasis she then cellulitis, recommend transition to p.o. doxycycline on discharge for 14 days and then PCN prophylaxis - outpatient follow up with ID for possible initiation of prophylactic antibiotics keep leg elevated, use tanmay wrap Hypernatremia. Trending down Treated with D5 water initially, 2 L fluid restriction Hyperklemia Treated with Lokelma Acute on chronic normocytic anemia H/H trending down, no evidence of acute blood loss iron studies, b12, folate ok Insulin dependent Type 2 diabetes Treated with Sliding scale, ADA diet, continue Lantus Continue home medications HTN Continue amlodipine, isosorbide HLD Continue statin Diabetic neuropathy lyrica on hold to prevent sedation in the setting of worsening renal function, restarted gabapentin being weaned to prevent sedation, may go back on regular dose Morbid obesity BMI 55.8 Discussed importance of weight management as this may be contributing to worsening of other comorbidities Time Spent with Patient Time attestation: Total time spent providing and/or coordinating discharge services: Discharge coordination time: Greater than 30 minutes Quality: Safe Use of Opioids Does Pt have an Active Cancer Diagnosis on the Problem List?: No Quality: Stroke Does the patient have a stroke diagnosis?: No Physical Exam Vital Signs: Vital Signs: Last Vital Signs Temp 97.1 F 04/14/22 07:35 Pulse 73 04/14/22 08:17 Resp 20 04/14/22 08:17 BP 132/58 L 04/14/22 07:35 Pulse Ox 93 04/14/22 07:35 O2 Del Method 04/14/22 07:35 O2 Flow Rate 2 04/14/22 03:03 BMI result Body Mass Index 55.8 DS: Data Data Completed and Pending Completed studies during hospitalization [Text1]: Procedures Assistance with Respiratory Ventilation, Less than 24 Consecutive Hours, Continuous Positive Airway Pressure (12/11/20) Labs on day of discharge: Laboratory Results - last 24 hr 04/13/22 04/13/22 04/13/22 11:16 15:15 19:36 POC Glucose 251 H 209 H 227 H 04/14/22 07:06 POC Glucose 240 H Discharge Plan Discharge Anticipated Discharge Date/Time: 04/14/22 11:49 Patient Disposition: Home, Self-Care Discharge Diagnosis: Acute on chronic respiratory failure with hypoxia and hypercarbia secondary to heart failure with reduced ejection fraction Asthma/COPD with chronic respiratory failure FELICIA on CKD 3 Depression with anxiety Acute recurrent right lower extremity cellulitis Referrals: [facility] [Outside] - 1 Day (HALFWAY AND HOME PHYSICAL THERAPY) Tavo Huber MD [Primary Care Provider] - 1 Week Gina Macedo MD [Physician] - 1 Week Discharge Medications: New clonidine HCl 0.1 mg Tablet 0.1 mg PO TID PRN (Reason: hyperarousal, anxiety, panic) Qty: 90 0RF Protocol: Hold for SBP< HOLD for SBP < : 90 hydralazine 25 mg Tablet 25 mg PO BID Qty: 60 0RF Protocol: Hold for SBP< HOLD for SBP < : 90 spironolactone 25 mg Tablet 25 mg PO DAILY Qty: 30 0RF Protocol: Hold for SBP< HOLD for SBP < : 90 bumetanide 1 mg Tablet 1 mg PO BEDTIME Qty: 30 0RF Protocol: Hold for SBP< HOLD for SBP < : 90 Continued gabapentin 400 mg capsule 400 mg PO BID@0900,1200 ipratropium-albuterol 0.5 mg-3 mg(2.5 mg base)/3 mL Solution For Nebulization 3 ml inhalation RQ4H WHILE AWAKE PRN (Reason: Shortness Of Breath/Wheezing) Qty: 1 0RF insulin lispro [Humalog U-100 Insulin] 100 unit/mL Solution See Protocol subcut QIDACHS Qty: 1 0RF Protocol: Insulin Correction Scale Less than or equal to 110 ---- Give (units): 0 111 to 150 Give (units): 0 151 to 200 Give (units): 2 201 to 250 Give (units): 4 251 to 300 Give (units): 6 301 to 350 Give (units): 8 Greater than 350 Give (units): 10 Call MD if Blood Glucose > : 350 Rx Instructions: sliding scale fluoxetine 40 mg capsule 40 mg PO DAILY metoprolol succinate 50 mg tablet extended release 24 hr 50 mg PO DAILY aspirin 81 mg tablet,delayed release (DR/EC) 81 mg PO DAILY simvastatin 20 mg tablet 20 mg PO BEDTIME omeprazole 20 mg capsule,delayed release(DR/EC) 20 mg PO BEDTIME Rx Instructions: PT TAKES BEDTIME albuterol sulfate [ProAir HFA] 90 mcg/actuation HFA aerosol inhaler 2 puff inhalation Q4H PRN (Reason: Dyspnea) fluticasone propionate [Flovent HFA] 110 mcg/actuation HFA aerosol inhaler 2 puff inhalation BID tizanidine 4 mg Tablet 4 mg PO BEDTIME isosorbide mononitrate 30 mg Tablet Extended Release 24 Hr 30 mg PO DAILY bumetanide 2 mg tablet 1 tab PO DAILY amlodipine 10 mg tablet 1 tab PO DAILY cholecalciferol (vitamin D3) 25 mcg (1,000 unit) capsule 1 cap PO DAILY meclizine 25 mg Tablet 25 mg PO TID PRN (Reason: Dizziness) gabapentin 400 mg capsule 800 mg PO BEDTIME pregabalin 100 mg capsule 1 cap PO BID furosemide 20 mg tablet 1 tab PO DAILY Hold Instructions: Resume on 04/28/22. haloperidol 2 mg tablet 1 tab PO BEDTIME PRN (Reason: Agitation) Rx Instructions: do not give is oversedated No Action melatonin 3 mg tablet 2 tab PO BEDTIME PRN (Reason: insomnia) polyethylene glycol 3350 17 gram Powder In Packet 17 g PO DAILY Qty: 30 0RF docusate sodium 100 mg Capsule 100 mg PO DAILY PRN (Reason: Constipation) Qty: 30 0RF insulin glargine [Lantus U-100 Insulin] 100 unit/mL solution 50 unit subcut BEDTIME Qty: 1 0RF oxycodone 5 mg Tablet 5 mg PO Q4H PRN (Reason: Pain, Moderate (Pain Scale 4-6) Qty: 10 0RF Rx Instructions: Partial Fill upon patient request. risperidone 1 mg tablet 1 tab PO BID Discharge Orders: Discharge Order (Routine); Ordered 04/14/22 Ordered By: Guillermo Marina Diet: Advance to usual diet Activity on Discharge: As tolerated Stand Alone Forms: Patient Portal Discharge page Care Plan Goals: Continue monitoring lower extremities, wound care as needed Use CPAP at night Health Concerns: Acute on chronic respiratory failure with hypoxia and hypercarbia secondary to heart failure with reduced ejection fraction Asthma/COPD with chronic respiratory failure FELICIA on CKD 3 Depression with anxiety Acute recurrent right lower extremity cellulitis Plan of Treatment: Follow-up with primary care provider as needed Can use Tanmay wraps for lower extremities follow-up with Infectious Disease provider as an outpatient Assessment: See discharge summary Discharge Date/Time: 04/14/22 17:27
--- NOTE | 2022-04-14 09:15 | P.PNIM_ITS ---
Subjective Subjective Date of Service: 04/14/22 Interval History: seen and examined this morning follow up for cellulitis, chf, respiratory failure no overnight events very eager to home..No new issue, awaiting home O2 eval Review of Systems no fever no chills no pain in the legs Physical Exam Vital Signs: Vital Signs: Last Vital Signs Temp 97.1 F 04/14/22 07:35 Pulse 73 04/14/22 08:17 Resp 20 04/14/22 08:17 BP 132/58 L 04/14/22 07:35 Pulse Ox 93 04/14/22 07:35 O2 Del Method 04/14/22 07:35 O2 Flow Rate 2 04/14/22 03:03 BMI result Body Mass Index 55.8 Objective Data Active Medications Acetaminophen (Acetaminophen 325 Mg Tablet) 650 mg PO Q6H PRN PRN Reason: Pain, Mild (Pain Scale 1-3) Last Admin: 04/13/22 03:06 Dose: 650 mg Documented By: RANJANA Aspirin (Aspirin Enteric Coated 81 Mg Tablet.) 81 mg PO DAILY [facility] Last Admin: 04/14/22 09:04 Dose: 81 mg Documented By: INEZ Atorvastatin Calcium (Atorvastatin Calcium 10 Mg Tablet) 10 mg PO BEDTIME HI Last Admin: 04/13/22 19:51 Dose: 10 mg Documented By: KWASI Bumetanide (Bumetanide 1 Mg Tablet) 2 mg PO DAILY [facility]; Protocol Last Admin: 04/14/22 09:06 Dose: 2 mg Documented By: INEZ Bumetanide (Bumetanide 1 Mg Tablet) 1 mg PO BEDTIME [facility]; Protocol Last Admin: 04/13/22 19:50 Dose: 1 mg Documented By: KWASI Clonidine HCl (Clonidine Hcl 0.1 Mg Tablet) 0.1 mg PO TID PRN; Protocol PRN Reason: hyperarousal, anxiety, panic Last Admin: 04/14/22 06:24 Dose: 0.1 mg Documented By: KWASI Empagliflozin (Empagliflozin 10 Mg Tablet) 10 mg PO DAILY [facility] Last Admin: 04/14/22 09:03 Dose: 10 mg Documented By: INEZ Enoxaparin Sodium (Enoxaparin Sodium 40 Mg/0.4 Ml Syringe) 40 mg SUBCUT Q24H [facility] Last Admin: 04/14/22 09:05 Dose: 40 mg Documented By: INEZ Fluoxetine HCl (Fluoxetine Hcl 20 Mg Capsule) 40 mg PO DAILY [facility] Last Admin: 04/14/22 09:03 Dose: 40 mg Documented By: INEZ Fluticasone Propionate (Fluticasone Propionate 100 Mcg Blst.W.Dev) 2 puff INHALE RBID [facility] Last Admin: 04/14/22 08:15 Dose: 2 puff Documented By: OLIVIA Gabapentin (Gabapentin 400 Mg Capsule) 800 mg PO BEDTIME [facility] Last Admin: 04/02/22 20:25 Dose: 800 mg Documented By: KWASI Gabapentin (Gabapentin 100 Mg Capsule) 200 mg PO BID@0900,1200 [facility] Last Admin: 04/14/22 09:04 Dose: 200 mg Documented By: INEZ Hydralazine HCl (Hydralazine Hcl 25 Mg Tablet) 25 mg PO BID [facility]; Protocol Last Admin: 04/14/22 09:03 Dose: 25 mg Documented By: INEZ Insulin Glargine (Insulin Glargine,Hum.Rec.Anlog 100 Unit/Ml 10 Ml Vial) 50 unit SUBCUT BEDTIME [facility] Last Admin: 04/13/22 19:51 Dose: 50 unit Documented By: KWASI Insulin Human Lispro (Insulin Lispro 100 Unit/Ml 3 Ml Vial) 0 unit SUBCUT QIDACHS [facility]; Protocol Last Admin: 04/14/22 07:33 Dose: 4 unit Documented By: INEZ Isosorbide Mononitrate (Isosorbide Mononitrate 30 Mg Tab.Er.24h) 30 mg PO DAILY [facility]; Protocol Last Admin: 04/14/22 09:03 Dose: 30 mg Documented By: INEZ Meclizine HCl (Meclizine Hcl 25 Mg Tablet) 25 mg PO TID PRN PRN Reason: Dizziness Last Admin: 04/01/22 16:09 Dose: 25 mg Documented By: EZRA Metoprolol Succinate (Metoprolol Succinate Er 50 Mg Tab.Er.24h) 50 mg PO DAILY [facility]; Protocol Last Admin: 04/14/22 09:03 Dose: 50 mg Documented By: INEZ Nystatin (Nystatin Powder 15 Gm Bottle) 1 appl TOPICAL BID [facility]; Protocol Last Admin: 04/14/22 09:09 Dose: 1 appl Documented By: INEZ Omeprazole (Omeprazole 20 Mg Capsule.) 20 mg PO BEDTIME [facility] Last Admin: 04/13/22 20:52 Dose: 20 mg Documented By: KWASI Pharmacy Consult (Consult Rx Perform Med Rec) 1 each MISCELLANE ONCE PRN PRN Reason: Consult order Polyethylene Glycol (Polyethylene Glycol 3350 17 Gm Powd.Pack) 17 gm PO DAILY PRN PRN Reason: constipation Last Admin: 04/11/22 10:20 Dose: 17 gm Documented By: TRAVON Pregabalin (Pregabalin 100 Mg Capsule) 100 mg PO BID [facility] Last Admin: 04/03/22 09:26 Dose: 100 mg Documented By: EZRA Risperidone (Risperidone 1 Mg Tablet) 1 mg PO BID [facility] Last Admin: 04/14/22 09:05 Dose: 1 mg Documented By: INEZ Sodium Chloride (0.9 % Sodium Chloride Flush 3 Ml Syringe) 3 ml IVFLUSH QSHIFT [facility] Last Admin: 04/14/22 07:34 Dose: Not Given Documented By: INEZ Non-Admin Reason: No Access Spironolactone (Spironolactone 25 Mg Tablet) 25 mg PO DAILY [facility]; Protocol Last Admin: 04/14/22 09:03 Dose: 25 mg Documented By: INEZ Tizanidine HCl (Tizanidine Hcl 4 Mg Tablet) 4 mg PO DAILY@1600 [facility] Last Admin: 04/13/22 16:34 Dose: 4 mg Documented By: RADHA Vitamin D (Cholecalciferol (Vitamin D3) 25 Mcg Tablet) 25 mcg PO DAILY [facility] Last Admin: 04/14/22 09:03 Dose: 25 mcg Documented By: INEZ Labs CBC & Chem 7: 04/07/22 09:52 04/12/22 06:11 Labs: Laboratory Results - last 24 hr 04/13/22 04/13/22 04/13/22 11:16 15:15 19:36 POC Glucose 251 H 209 H 227 H 04/14/22 07:06 POC Glucose 240 H Assessment and Plan (1) Adjustment disorder with mixed anxiety and depressed mood: Status: Acute (2) Acute CHF: Status: Acute (3) FELICIA (acute kidney injury): Status: Acute Plan 61 year old female with history of 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 Depression/anxiety with agitation Patient with episodes of what she describes as severe anxiety/panic No further shouting or anxiety episodes Initially deemed incompetent, re-evaluation patient deemed to have capacity for making medical decisions, daughter is aware continue prozac started on risperidal and prn clonidine this admission and haldol discontinued Acute on chronic respiratory failure with hypoxia and hypercarbia. Resolved. multifactorial and secondary to DANIEL, obesity hypoventilation, COPD and CHF home o2 eval prior to d/c Acute on chronic HFrEF. Resolved Recent admission to [facility]. Echo on 03/10 with grade 2 diastolic dysfunction with EF 25-35%. s/p Lasix drip at 10 mg an hour, stopped diuresed over 7L Started bumex 2mg daily, 1mg at bedtime started on Jardiance, aldactone as well Asthma/COPD with chronic respiratory failure on prn home O2 Nocturnal CPAP, has been unable to tolerate during hospitalization, noncompliant at home Scheduled DuoNebs goal o2 89-90% per pulmonology will need home oxygen evaluation FELICIA on CKD 3. Resolved Recently admitted to [facility] requiring temporary dialysis Creatinine trending down Nephrology following Acute recurrent RLE cellulitis. Improved intermittent recurrence ongoing since 2019. Treated at [facility] with IV unasyn H/o chronic venous stasis dermatitis Venous deplex negative for DVT. Xray R ankle neg for osseous abnormality including osteomyelitis Initially treated with vancomycin, changed to doxycycline. Has completed 14 days of antibiotics recommended by ID. Should follow up with ID as outpatient to consider prophylaxis keep leg elevated, use diallo wrap Hyperklemia prn lokelma follow BMP Acute on chronic normocytic anemia. Stable no evidence of acute blood loss iron studies, b12, folate ok H/H has remained stable Insulin dependent Type 2 diabetes Sliding scale, ADA diet, continue Lantus HTN Continue amlodipine, isosorbide HLD Continue statin Diabetic neuropathy lyrica and nighttime dose of gabapentin on hold to prevent sedation initially in the setting of worsening renal function day time dose of gabapentin decreased Morbid obesity BMI 55.8 Discussed importance of weight management as this may be contributing to worsening of other comorbidities DVT prophylaxis- lovenox Attending Dr. Sharma Full code Disposition home with services once physically able to ambulate without assistance --probably today patient requires ongoing inpatient hospitalization due to treatment of right lower extremity cellulitis, eval for anxiety. seen by PT - rec STR or home with 09/02 care, patient declining rehab at this time, anticipating dc in 24 hours Quality Stroke Does the patient have a stroke diagnosis?: No VTE Prior VTE?: No VTE Risk Level:: Medical - moderate - high VTE Device Contraindication: Treatment Not Indicated VTE Drug Contraindication: N/A - Med Ordered
[2022-04-14 11:15] VITALS: BP 136/64; PULSE 79; RESP 18; TEMP 36.8; O2SAT 94
--- NOTE | 2022-04-14 11:45 | MHC.CM.PN ---
Addendum entered by Carmen Riojas RN 04/14/22 17:11: CM RECEIVED CALL FROM [facility] REPORTING PT IS STILL ACTIVE, D/C SUMMARY AND F2F FAXED TO [phone], OF NOTE REFERRAL WAS SENT TO [facility] ON 03/26/22 HOWEVER THERE WAS NO RESPONSE, CM HAS LEFT MESSAGE W/HEAD ON INTAKE. PT'S [facility] NURSE TO SEE PT TOMORROW 04/15. Addendum entered by Carmen Riojas RN 04/14/22 16:27: [facility] AT BEDSIDE AND WILL TRANSPORT PT HOME, D/C SUMMARY AND F2F [facility] [place] Original Note: PT MEDICALLY CLEARED FOR D/C HOME W/[facility] FOR ASSISTED AND HOME PT, CM AWAITING TO COFIRM TRANSPORT W/[facility] WHO REPORTED THAT PT'S CP CAN TRANSPORT HER HOME TODAY, [facility] W/C'S THAT CAN BE LOANED TO PT, [facility] WILL TRANSPORT.
[2022-04-14 11:47] LABS: Glucose, Whole Blood 216 mg/dL (60-115)
--- NOTE | 2022-04-14 11:49 | P.F2F_ITS ---
Service Date Service Date: 04/14/22 Encounter Date of encounter: 04/14/22 Reasons for Services Signs and symptoms assessed: weakness, sob Reason for correction: medication treatment and teach disease management Reason for physical therapy: home safety and mobility, gait/transfer training and energy conservation Homebound: Leaving the home is medically contraindicated at this time without the asist of a device and/or another person due th the listed conditions above and below. Reason homebound: unsteady gait / fall risk and leg weakness Homebound supporting statement: homebound due to weakness, deoconditioning from prolonged hospitalization, dyspnea with minimal effort and therefore needs the assistance of another person Certification: Based on the above findings, I certify that this patient is confined to the home and needs intermittent correction care, physical therapy and/or speech therapy, or continues to need occupational therapy. The patient is under my care, and I have initiated the establishment of the plan of care. The patient will be followed by a physician who will periodically review the plan of care.
[2022-04-14 14:18] VITALS: PULSE 84; PULSE 90; PULSE 95; O2SAT 93; O2SAT 95; O2SAT 96
[2022-04-14 15:16] VITALS: BP 125/58; PULSE 78; RESP 20; TEMP 36.6; O2SAT 92
[2022-04-14] MEDS: TiZANidine HCL 4 MG TABLET PO (15:18)
[2022-04-14 15:43] LABS: Glucose, Whole Blood 207 mg/dL (60-115)
--- NOTE | 2022-04-14 17:33 | MHC.CM.PN ---
CM ATTEMPTED TO CONTACT PT'S HCP/SISTER PAUL GONZALES AT 5:32PM AT [phone] TO REQUEST CONSENT FOR REST HOME ADMISSION AND ADDITIONAL CONSENTS HCP REMAINS INVOKED, NO ANSWER AND MAILBOX IS FULL, CM WILL REVISIT.
== END 2022-04-14 17:27 | disposition home or self-care (01) | DRG 194 ==
LOC: HO.ED 03-26 06:43 → HO.EDOVER 03-26 13:45 → HO.IMC 03-26 23:02 → HO.S3 03-30 15:07
PROVIDERS: Internal Medicine; Internal Medicine Nephrology; Nurse Practitioner Acute Care; Physician Assistant Medical; Admitting Provider Family Medicine; Emergency Provider Emergency Medicine; PCP Internal Medicine; Visit Provider Internal Medicine
DX: I13.0 Hypertensive heart and chronic kidney disease with heart failure and stage 1 through stage 4 chronic kidney disease, or unspecified chronic kidney disease (principal); J96.22 Acute and chronic respiratory failure with hypercapnia; E87.0 Hyperosmolality and hypernatremia; L03.115 Cellulitis of right lower limb; D63.1 Anemia in chronic kidney disease; E66.2 Morbid (severe) obesity with alveolar hypoventilation; I50.23 Acute on chronic systolic (congestive) heart failure; N17.9 Acute kidney failure, unspecified; I42.8 Other cardiomyopathies; F33.1 Major depressive disorder, recurrent, moderate; Z68.43 Body mass index [BMI] 50.0-59.9, adult; E11.22 Type 2 diabetes mellitus with diabetic chronic kidney disease; E11.40 Type 2 diabetes mellitus with diabetic neuropathy, unspecified; Z99.81 Dependence on supplemental oxygen; E11.51 Type 2 diabetes mellitus with diabetic peripheral angiopathy without gangrene; E78.5 Hyperlipidemia, unspecified; I87.323 Chronic venous hypertension (idiopathic) with inflammation of bilateral lower extremity; J45.20 Mild intermittent asthma, uncomplicated; J44.9 Chronic obstructive pulmonary disease, unspecified; E87.5 Hyperkalemia; F43.23 Adjustment disorder with mixed anxiety and depressed mood; N18.31 Chronic kidney disease, stage 3a; I50.813 Acute on chronic right heart failure; F41.0 Panic disorder [episodic paroxysmal anxiety]; Z20.822 Contact with and (suspected) exposure to COVID-19; Z88.6 Allergy status to analgesic agent; Z79.4 Long term (current) use of insulin; Z79.51 Long term (current) use of inhaled steroids; Z88.5 Allergy status to narcotic agent; Z79.82 Long term (current) use of aspirin; Z79.899 Other long term (current) drug therapy
CPT/HCPCS: 36415; 36600; 71045; 73600; 80048; 80053; 80202; 81001; 82565; 82607; 82728; 82746; 82803; 82947; 83540; 83605; 83735; 83880; 83970; 84132; 84300; 84484; 85025; 85027; 86160; 87635; 93005; 93971; 94640; 94660; 94664; 96365; 96366; 97110; 97162; 97530; 99285; C1758; J1650; J1756; J1940; J3370

== ENCOUNTER 2022-04-19 20:34 | Inpatient (IN) | payer MEDICAID, SELFPAY ==
--- NOTE | ~2022-04-19 | CT_ITS ---
EXAMINATION: CT CHEST, ABDOMEN AND PELVIS WITHOUT CONTRAST CLINICAL INFORMATION: Hypoxia and abdominal pain. COMPARISON: 06/10/2021 TECHNIQUE: Multidetector volumetric imaging was performed from the thoracic inlet through the pubic symphysis without contrast. Sagittal and coronal reformatted images were obtained on the technologist workstation. This CT examination was performed using dose optimization techniques as appropriate, variously including the following: *Automated exposure control *Adjustment of mA and/or kV according to patient size (this includes techniques or standardized protocols for targeted exams where dose is matched to indication/reason for exam; i.e. extremities or head) *Use of iterative reconstruction technique DLP: 1090 and 472 mGy-cm FINDINGS: CHEST: LUNGS: The lungs are clear with no evidence of any new inflammation or nodules. Tiny subpleural nodular foci unchanged. MEDIASTINUM: The mediastinum is normal. Central vascular structures are unremarkable. No hilar or mediastinal lymphadenopathy. PERICARDIUM/PLEURA: There is no significant effusion. No pleural mass or thickening. CHEST WALL/AXILLA: Unremarkable. ABDOMEN/PELVIS: LIVER, GALLBLADDER, BILIARY TREE: The liver is normal in size, shape, and attenuation. No focal hepatic lesion or biliary ductal dilatation is present. Clips consistent with cholecystectomy. PANCREAS: Unremarkable. SPLEEN: Unremarkable. ADRENAL GLANDS: Unremarkable. KIDNEYS AND URETERS: The kidneys are normal in size, shape, and attenuation. No hydronephrosis or hydroureter or calculi seen. No perinephric stranding. BLADDER: Unremarkable. GASTROINTESTINAL TRACT: 7.3 cm stool ball within the rectum mildly prominent rectal wall which could be indicative of stercoral colitis. No obstruction. No small bowel pathology. Normal appendix. No mesenteric mass or fluid collections. Minimal diverticulosis only. ABDOMINAL WALL: No hernia is demonstrated. LYMPH NODES: Normal. VASCULAR: Unremarkable. PELVIC VISCERA: Unremarkable. OSSEOUS STRUCTURES: Unremarkable. CT/CT abdomen pelvis wo IV con IMPRESSION: Stool ball within the rectum with equivocal changes of stercoral colitis. No chest pathology.
[2022-04-19 20:44] VITALS: BP 111/67; PULSE 75; O2SAT 94; BMI 48.9
[2022-04-19 20:48] VITALS: BP 106/39; PULSE 80; O2SAT 90
--- NOTE | 2022-04-19 21:23 | ECG_ITS ---
Test Reason : WOUNDS Blood Pressure : / mmHG Vent. Rate : 073 BPM Atrial Rate : 073 BPM P-R Int : 180 ms QRS Dur : 110 ms QT Int : 430 ms P-R-T Axes : 000 144 125 degrees QTc Int : 473 ms Suspect limb lead reversal, interpretation assumes no reversal Normal sinus rhythm Right axis deviation Abnormal ECG When compared with ECG of 14-APR-2022 11:52, Premature ventricular complexes are no longer Present QRS axis Shifted right Nonspecific T wave abnormality now evident in Lateral leads Referred By: Chelsy Perez Electronically Signed By:KEYONA SANTANA
--- NOTE | 2022-04-19 21:24 | ED.GENADULT ---
HPI - General Adult General Chief complaint: General Medical Stated complaint: multiple Time Seen by Provider: 04/19/22 21:23 Source: patient Mode of arrival: EMS History of Present Illness HPI narrative: 61-year-old female is brought in by EMS for complaints difficulty breathing, and in inability to pass stool, stating that it got stuck on the way as well as concerns regarding bleeding from her pressure ulcer on her bottom. Patient denies the use of oxygen at home and otherwise denies any chest pain /palpitations. Related Data Home Medications Medication Instructions Recorded Confirmed albuterol sulfate 90 mcg/actuation 2 puff inhalation Q4H PRN Dyspnea 11/23/20 03/26/22 aerosol inhaler (ProAir HFA) aspirin 81 mg tablet,delayed 81 mg PO DAILY 11/23/20 03/26/22 release fluoxetine 40 mg capsule 40 mg PO DAILY 11/23/20 03/26/22 fluticasone propionate 110 2 puff inhalation BID 11/23/20 03/26/22 mcg/actuation HFA aerosol inhaler (Flovent HFA) metoprolol succinate 50 mg 50 mg PO DAILY 11/23/20 03/26/22 tablet,extended release 24 hr omeprazole 20 mg capsule,delayed 20 mg PO BEDTIME 11/23/20 03/26/22 release simvastatin 20 mg tablet 20 mg PO BEDTIME 11/23/20 03/26/22 isosorbide mononitrate 30 mg 30 mg PO DAILY 12/11/20 03/26/22 tablet,extended release 24 hr tizanidine 4 mg tablet 4 mg PO BEDTIME 12/11/20 03/26/22 gabapentin 400 mg capsule 400 mg PO BID@0900,1200 01/09/21 03/26/22 amlodipine 10 mg tablet 1 tab PO DAILY 06/07/21 03/26/22 bumetanide 2 mg tablet 1 tab PO DAILY 06/07/21 03/26/22 cholecalciferol (vitamin D3) 25 1 cap PO DAILY 06/07/21 03/26/22 mcg (1,000 unit) capsule gabapentin 400 mg capsule 800 mg PO BEDTIME 06/07/21 03/26/22 insulin glargine 100 unit/mL 80 unit subcut BEDTIME 06/07/21 03/26/22 subcutaneous solution (Lantus U-100 Insulin) meclizine 25 mg tablet 25 mg PO TID PRN Dizziness 06/07/21 03/26/22 pregabalin 100 mg capsule 1 cap PO BID 06/08/21 03/26/22 furosemide 20 mg tablet 1 tab PO DAILY 03/26/22 03/26/22 haloperidol 2 mg tablet 1 tab PO BEDTIME 03/26/22 03/26/22 Previous Rx's Medication Instructions Recorded insulin lispro 100 unit/mL See Protocol subcut QIDACHS #1 mL 01/16/21 subcutaneous solution (Humalog U-100 Insulin) ipratropium 0.5 mg-albuterol 3 mg 3 ml inhalation RQ4H WHILE AWAKE 01/16/21 (2.5 mg base)/3 mL nebulization PRN Shortness Of Breath/Wheezing soln #1 mL clonidine HCl 0.1 mg tablet 0.1 mg PO TID PRN hyperarousal, 04/01/22 anxiety, panic #90 tabs bumetanide 1 mg tablet 1 mg PO BEDTIME #30 tabs 04/08/22 bumetanide 1 mg tablet 2 mg PO DAILY #60 tabs 04/08/22 hydralazine 25 mg tablet 25 mg PO BID #60 tabs 04/08/22 risperidone 1 mg tablet 1 mg PO BID #60 tabs 04/08/22 spironolactone 25 mg tablet 25 mg PO DAILY #30 tabs 04/08/22 Allergies Allergy/AdvReac Type Severity Reaction Status Date / Time ibuprofen Allergy Intermediate vommiting, Verified 04/04/22 10:51 itching acetaminophen [Tylenol] Allergy Mild Unknown Verified 04/05/22 05:56 morphine AdvReac Intermediate vomiting Verified 04/04/22 10:51 Review of Systems Review of Systems: Pertinent positives and negatives as stated in HPI 10 point review of systems is otherwise negative. [facility] Past Medical History Source: nursing notes reviewed Medical History Acute on chronic combined systolic and diastolic CHF (congestive heart failure) Asthma Cellulitis of right lower extremity Chronic pain CKD (chronic kidney disease) stage 3, GFR 30-59 ml/min Congestive heart failure Depression Diabetes Diabetic neuropathy, painful High cholesterol Hypertension Morbid obesity NICM (nonischemic cardiomyopathy) Obesity hypoventilation syndrome DANIEL (obstructive sleep apnea) Surgical History Hx of cholecystectomy Family History Family History Mother HTN (hypertension) Diabetes CAD (coronary artery disease) Father HTN (hypertension) Diabetes CAD (coronary artery disease) Maternal Grandmother CAD (coronary artery disease) Social History Social History Household Members: None Household Members Other:: GRANDSON Housing: Apartment Housing Other:: [place] Do you presently have visiting nurse or other home services: Yes Alcohol intake: never Patient Tobacco Use Status: Former Tobacco user Tobacco use type: Cigarette Years Smoked: 38 Second Hand Smoke Exposure: No Use of substances other than those prescribed or required for medical reasons: No Substance Use Type: Marijuana Advance Directives: Yes Advance Directives on File: Yes Advance Directives Date on File: 12/19/20 Patient : No service: No Current occupational status: disabled Physical Exam ED Vital Signs: Vital Signs - 24 hr 04/19/22 20:48 04/19/22 23:46 Temperature 97.9 F Pulse Rate 80 83 Respiratory Rate 16 Blood Pressure 106/39 L 119/48 L Pulse Oximetry 90 L 97 Oxygen Delivery Method Room Air Room Air BMI result Body Mass Index 48.9 VITAL SIGNS: Reviewed. GENERAL: Elevated BMI, well nourished, in moderate distress. HEAD: Normocephalic/atraumatic EYES: PERRLA, EOMI EARS: Ext canals without abnormality OROPHARYNX: no oral lesions noted, posterior pharynx clear NECK: Supple, no adenopathy LUNGS: decreased breath sounds with bibasilar rales. SpO2<90> Patient placed on nasal cannula with good response CARDIOVASCULAR: Regular rate and rhythm without noted murmurs, no JVD but bilateral lower extremity pitting edema noted ABDOMEN: Soft, non-tender, non-distended with bowel sounds. RECTUM: there is noted stool partially out of the anus, remaining manual disimpaction for hard stool until soft stool was reached, no but blood noted Coccyx: there is obvious pressure ulcer at the sacral coccyx area, please refer to the pictures provided MUSCULOSKELETAL: No tenderness, deformities, or effusions noted on gross inspection. EXTREMITIES: No cyanosis, clubbing but chronic skin changes noted to bilateral lower extremities SKIN: Inspection of the skin reveals no rashes NEUROLOGIC: Alert and oriented x 4. Strength and sensation to light touch were grossly intact x 4. Skin Other: Course Course Course Narrative: 2300: 61-year-old female with history and clinical presentation consistent with suspected constipation, pressure ulcer and possible underlying infection. Review of all investigations with findings consistent with CHF exacerbation on clinical exam and noted FELICIA. In addition, patient has residual fecal impaction with stercoral colitis. I discussed the case with the inpatient hospitalist who accepts admission. Procedures Rectal Disimpaction Time out performed rectal disimpaction: No Indication: fecal impaction Procedural Sedation: No Sedation/Analgesia: none Technique: manual disimpaction with gloved finger Result: unable to disimpact Patient Tolerated Procedure: well and no complications Complications: none Additional Comments: Incomplete disimpaction despite copious amounts removed Medical Decision Making Lab Data Result diagrams: 04/19/22 21:53 04/19/22 21:53 Labs: Lab Results 04/19/22 04/19/22 04/19/22 Range/Units 21:53 21:53 21:53 WBC 10.7 (4.8-10.8) X10*3/uL RBC 3.63 L (4.20-5.50) X10*6/uL Hgb 9.5 L (12.0-16.0) g/dl Hct 30.9 L (37.0-47.0) % MCV 85.1 (80.0-98.0) fL MCH 26.2 L (27.0-33.0) pg MCHC 30.7 L (31.0-35.0) g/dl RDW 15.4 (11.0-16.0) % Plt Count 252 D (160-400) X10*3/uL MPV 9.4 (9.4-12.3) fL Immature Gran % (Auto) 0.6 H (0.0-0.4) % Neut % (Auto) 85.4 H (45-73) % Lymph % (Auto) 6.0 L (20-40) % [place] % (Auto) 6.7 (2-11) % Eos % (Auto) 1.0 (0-4) % Baso % (Auto) 0.3 (0-2) % Lymph # (Auto) 0.6 L (1.2-4.9) X10*3/uL [place] # (Auto) 0.7 (0.1-1.2) X10*3/uL Eos # (Auto) 0.1 (0.0-0.4) X10*3/uL Baso # (Auto) 0.0 (0.0-0.2) X10*3/uL Abs Immat Gran (auto) 0.06 H (0.00-0.03) X10*3/uL Absolute Neuts (auto) 9.1 H (2.0-8.3) x10*3/uL Absolute Nucleated RBC 0.000 (0.0-0.012) X10*3/uL Nucleated RBC % (auto) 0.0 (0.0-0.2) /100WBC VBG pH (7.32-7.43) VBG pCO2 mmHg VBG pO2 mmHg VBG HCO3 (22-26) mmol/L VBG O2 Saturation % VBG Base Excess mmol/L Sodium 137 (135-145) mmol/L Potassium 4.5 (3.3-5.1) mmol/L Chloride 99 (96-108) mmol/L Carbon Dioxide 21 L (22-29) mmol/L Anion Gap 22 H (12-20) BUN 105 H D (9-16) mg/dL Creatinine 2.54 H (0.5-1.4) mg/dL Estim Creat Clear Calc 31.4 Estimated GFR 19 Random Glucose 231 H (60-115) mg/dL Lactic Acid 0.7 (0.5-2.0) mmol/L Calcium 8.3 L (8.4-10.2) mg/dL Total Bilirubin 0.3 (0.0-1.0) mg/dL AST 24 D (5-31) U/L ALT 21 (0-31) U/L Alkaline Phosphatase 73 (39-117) U/L B-Natriuretic Peptide (<100) pg/mL Total Protein 6.8 (6.5-8.0) g/dL Albumin 3.6 (3.5-5.0) g/dL COVID-19 ([facility]) (Negative) COVID-19 Clin Com 04/19/22 04/19/22 04/20/22 Range/Units 21:58 21:58 00:44 WBC (4.8-10.8) X10*3/uL RBC (4.20-5.50) X10*6/uL Hgb (12.0-16.0) g/dl Hct (37.0-47.0) % MCV (80.0-98.0) fL MCH (27.0-33.0) pg MCHC (31.0-35.0) g/dl RDW (11.0-16.0) % Plt Count (160-400) X10*3/uL MPV (9.4-12.3) fL Immature Gran % (Auto) (0.0-0.4) % Neut % (Auto) (45-73) % Lymph % (Auto) (20-40) % [place] % (Auto) (2-11) % Eos % (Auto) (0-4) % Baso % (Auto) (0-2) % Lymph # (Auto) (1.2-4.9) X10*3/uL [place] # (Auto) (0.1-1.2) X10*3/uL Eos # (Auto) (0.0-0.4) X10*3/uL Baso # (Auto) (0.0-0.2) X10*3/uL Abs Immat Gran (auto) (0.00-0.03) X10*3/uL Absolute Neuts (auto) (2.0-8.3) x10*3/uL Absolute Nucleated RBC (0.0-0.012) X10*3/uL Nucleated RBC % (auto) (0.0-0.2) /100WBC VBG pH 7.32 (7.32-7.43) VBG pCO2 41 mmHg VBG pO2 47 mmHg VBG HCO3 22 (22-26) mmol/L VBG O2 Saturation 72.0 % VBG Base Excess -3.6 mmol/L Sodium (135-145) mmol/L Potassium (3.3-5.1) mmol/L Chloride (96-108) mmol/L Carbon Dioxide (22-29) mmol/L Anion Gap (12-20) BUN (9-16) mg/dL Creatinine (0.5-1.4) mg/dL Estim Creat Clear Calc Estimated GFR Random Glucose (60-115) mg/dL Lactic Acid (0.5-2.0) mmol/L Calcium (8.4-10.2) mg/dL Total Bilirubin (0.0-1.0) mg/dL AST (5-31) U/L ALT (0-31) U/L Alkaline Phosphatase (39-117) U/L B-Natriuretic Peptide 126 H (<100) pg/mL Total Protein (6.5-8.0) g/dL Albumin (3.5-5.0) g/dL COVID-19 ([facility]) Negative (Negative) COVID-19 Clin Com See Note ECG Data Attestation: I personally reviewed and interpreted this ECG as follows: Prior ECG tracings: available for review Interpretation: Normal sinus rhythm, HR- 73, no STEMI, ID /QTC are within normal limits. Critical Care Time Critical Care Time Critical Care Time: Yes Total Critical Care Time: 30 Attestation: I personally attest to this time spent taking care of the patient. Discharge Plan Discharge Clinical Impression: CHF exacerbation, FELICIA (acute kidney injury), Hypoxia, Decubitus ulcer, Stercoral colitis Patient Disposition: Admitted As Inpatient
[2022-04-19 22:04] LABS: MANUAL DIFF FLAG NO
[2022-04-19 22:10] LABS: Basophils Percent Auto 0.3 % (0-2); Eosinophils Absolute Auto 0.1 X10*3/uL (0.0-0.4); Hematocrit 30.9 % (37.0-47.0); Hemoglobin 9.5 g/dl (12.0-16.0); Imm Gran Abs Auto 0.06 X10*3/uL (0.00-0.03); Imm Gran Pct Auto 0.6 % (0.0-0.4); Lymphocytes Absolute Auto 0.6 X10*3/uL (1.2-4.9); Mean Corpuscular HGB Conc 30.7 g/dl (31.0-35.0); Mean Corpuscular Hemoglobin 26.2 pg (27.0-33.0); Mean Corpuscular Volume 85.1 fL (80.0-98.0); Mean Platelet Volume 9.4 fL (9.4-12.3); Monocytes Absolute Auto 0.7 X10*3/uL (0.1-1.2); Monocytes Percent Auto 6.7 % (2-11); Neutrophils Absolute Auto 9.1 x10*3/uL (2.0-8.3); Neutrophils Percent Auto 85.4 % (45-73); Platelet Count 252 X10*3/uL (160-400); Red Blood Count 3.63 X10*6/uL (4.20-5.50); Red Cell Distribution Width 15.4 % (11.0-16.0); White Blood Count 10.7 X10*3/uL (4.8-10.8)
[2022-04-19 22:29] LABS: Lactic Acid 0.7 mmol/L (0.5-2.0)
[2022-04-19 22:33] LABS: Alanine Aminotransferase 21 U/L (0-31); Albumin Level 3.6 g/dL (3.5-5.0); Alkaline Phosphatase 73 U/L (39-117); Anion Gap 22 (12-20); Aspartate Amino Transferase 24 U/L (5-31); Bilirubin Total 0.3 mg/dL (0.0-1.0); Blood Urea Nitrogen 105 mg/dL (9-16); Calcium 8.3 mg/dL (8.4-10.2); Carbon Dioxide 21 mmol/L (22-29); Chloride 99 mmol/L (96-108); Creatinine Clr Calc Pharmacy 31.4; Estimated Glomerular Filt Rate 19; Glucose Random 231 mg/dL (60-115); Potassium 4.5 mmol/L (3.3-5.1); Sodium 137 mmol/L (135-145); Total Protein 6.8 g/dL (6.5-8.0)
[2022-04-19 22:33] LABS: COVID-19 Test Negative (Negative)
[2022-04-19 22:35] LABS: B Type Natriuretic Peptide 126 pg/mL (<100)
--- NOTE | 2022-04-19 23:11 | PC.NURSE ---
Unstagible pressure ulceration noted from end of lumbar spine to opening of rectum (approximately 6in by 3in). Wound bed cleansed, barrier cream applied. Foam pad applied. See photos in Provider Documentation
[2022-04-19 23:46] VITALS: BP 119/48; PULSE 83; RESP 16; TEMP 36.6; O2SAT 97
[2022-04-20 00:49] LABS: VBG Base Excess -3.6 mmol/L; VBG HCO3 22 mmol/L (22-26); VBG pCO2 41 mmHg; VBG pH 7.32 (7.32-7.43); VBG pO2 47 mmHg
[2022-04-20 01:10] LABS: Venous Blood Gas Refer to POC result
[2022-04-20] MEDS: Furosemide 100 MG/10 ML VIAL 60 MG IVPUSH (02:37)
[2022-04-20 02:46] VITALS: BP 118/74; PULSE 80
--- NOTE | 2022-04-20 02:50 | PC.NURSE ---
Patient expelled a very large. (aprox size of 2 soft balls) soft stool.
[2022-04-20 03:57] LABS: Appearance Urine Clear; Color Urine Yellow; Glucose Urine UA Negative (Negative); Leukocyte Esterase Urine Small (1+) (Negative); Nitrite Urine Negative (Negative); UMIC TRIGGER UACC YES; Urine Blood Negative (Negative); Urine Ketones Negative (Negative); Urine Protein Negative (Neg-Trace)
[2022-04-20 04:02] LABS: Bacteria Urine None Seen (None Seen); RBC Urine 0-2 /HPF (0-2); Squamous Epithelial Cell Urine 0-2 /HPF (0-2); UACC Culture Trigger YES
--- NOTE | 2022-04-20 05:35 | P.HPHOSP_ITS ---
History of Present Illness Date of Service: 04/20/22 Chief Complaint: abd pain 7-year-old female with medical history of DANIEL, obesity hypoventilation syndrome, CHFeEF, diabetes, HTN, HLD, asthma, history of chronic pain, presents to the hospital with complaints of abdominal pain. Patient reports that she is constipated, has not been able to move her bowels for several days. She has lower abdominal pain specially within trying to defecate. She denies any nausea or vomiting, no fever or chills, she denies any shortness of breath, no orthopnea or PND and no lower extremity edema. Patient reports that she has a CPAP at home but has not been compliant with a because she is waiting on parts. She has oxygen at home but has not needed to use it. She also has not been using her diuretics because of cost. She has not been able to get it from the pharmacy. She denies any headache, no change in vision, no numbness or tingling, no urinary symptoms including no dysuria frequency or urgency. on arrival to the ED patient hemodynamically stable noted to be 90% on room air Labs are significant for WBC count of 10.7, hemoglobin of 9.5 which is around her baseline, hematocrit 30.9, pH of 7.32, pCO2 of 41, BUN of 105, creatinine of 2.54 with a baseline around 1.3, BNP of 126, UA positive for small leukocyte Estrace and some WBC abdominal pelvic CT showed stool ball within the rectum with changes of stercoral colitis. Chest CT shows clear lungs with no evidence of any new inflammation or nodules. patient given 60 mg of IV Lasix in the ED and will be admitted for further management Of note patient was discharged from the hospital on 04/14 after being managed for acute on chronic hypoxic respiratory failure as well as asthma/COPD/ CHF exacerbation and FELICIA Review of Systems Review of Systems: Yes all other systems are reviewed and are negative [facility] Medical History Acute on chronic combined systolic and diastolic CHF (congestive heart failure) Asthma Cellulitis of right lower extremity Chronic pain CKD (chronic kidney disease) stage 3, GFR 30-59 ml/min Congestive heart failure Depression Diabetes Diabetic neuropathy, painful High cholesterol Hypertension Morbid obesity NICM (nonischemic cardiomyopathy) Obesity hypoventilation syndrome DANIEL (obstructive sleep apnea) Family History Mother HTN (hypertension) Diabetes CAD (coronary artery disease) Father HTN (hypertension) Diabetes CAD (coronary artery disease) Maternal Grandmother CAD (coronary artery disease) Surgical History Hx of cholecystectomy Social History Household Members: None Household Members Other:: GRANDSON Housing: Apartment Housing Other:: [employer] Do you presently have visiting nurse or other home services: Yes Alcohol intake: never Patient Tobacco Use Status: Former Tobacco user Tobacco use type: Cigarette Years Smoked: 38 Second Hand Smoke Exposure: No Use of substances other than those prescribed or required for medical reasons: No Substance Use Type: Marijuana Advance Directives: Yes Advance Directives on File: Yes Advance Directives Date on File: 12/19/20 Patient : No service: No Current occupational status: disabled Meds Allergies Allergy/AdvReac Type Severity Reaction Status Date / Time ibuprofen Allergy Intermediate vommiting, Verified 04/04/22 10:51 itching acetaminophen [Tylenol] Allergy Mild Unknown Verified 04/05/22 05:56 morphine AdvReac Intermediate vomiting Verified 04/04/22 10:51 Active Medications: Current Medications Lactated Ringer's (Lr) 1,000 mls @ 100 mls/hr IVCONT .Q10H [facility] Home Medications Medication Instructions Recorded Confirmed Last Taken Type albuterol sulfate 90 mcg/actuation 2 puff inhalation Q4H PRN Dyspnea 11/23/20 03/26/22 1 Day Ago History aerosol inhaler (ProAir HFA) ~03/31/21 aspirin 81 mg tablet,delayed 81 mg PO DAILY 11/23/20 03/26/22 1 Day Ago History release ~03/31/21 fluoxetine 40 mg capsule 40 mg PO DAILY 11/23/20 03/26/22 1 Day Ago History ~03/31/21 fluticasone propionate 110 2 puff inhalation BID 11/23/20 03/26/22 1 Day Ago History mcg/actuation HFA aerosol inhaler ~03/31/21 (Flovent HFA) metoprolol succinate 50 mg 50 mg PO DAILY 11/23/20 03/26/22 1 Day Ago History tablet,extended release 24 hr ~03/31/21 omeprazole 20 mg capsule,delayed 20 mg PO BEDTIME 11/23/20 03/26/22 1 Day Ago History release ~03/31/21 simvastatin 20 mg tablet 20 mg PO BEDTIME 11/23/20 03/26/22 1 Day Ago History ~03/31/21 isosorbide mononitrate 30 mg 30 mg PO DAILY 12/11/20 03/26/22 1 Day Ago History tablet,extended release 24 hr ~03/31/21 tizanidine 4 mg tablet 4 mg PO BEDTIME 12/11/20 03/26/22 1 Day Ago History ~03/31/21 gabapentin 400 mg capsule 400 mg PO BID@0900,1200 01/09/21 03/26/22 1 Day Ago History ~03/31/21 amlodipine 10 mg tablet 1 tab PO DAILY 06/07/21 03/26/22 Unknown History bumetanide 2 mg tablet 1 tab PO DAILY 06/07/21 03/26/22 Unknown History cholecalciferol (vitamin D3) 25 1 cap PO DAILY 06/07/21 03/26/22 Unknown History mcg (1,000 unit) capsule gabapentin 400 mg capsule 800 mg PO BEDTIME 06/07/21 03/26/22 Unknown History insulin glargine 100 unit/mL 80 unit subcut BEDTIME 06/07/21 03/26/22 Unknown History subcutaneous solution (Lantus U-100 Insulin) meclizine 25 mg tablet 25 mg PO TID PRN Dizziness 06/07/21 03/26/22 Unknown History pregabalin 100 mg capsule 1 cap PO BID 06/08/21 03/26/22 Unknown History furosemide 20 mg tablet 1 tab PO DAILY 03/26/22 03/26/22 Unknown History haloperidol 2 mg tablet 1 tab PO BEDTIME 03/26/22 03/26/22 Unknown History Physical Exam Vital Signs and Narrative: Vital Signs: Last Vital Signs Temp 97.9 F 04/19/22 23:46 Pulse 80 04/20/22 02:46 Resp 16 04/19/22 23:46 BP 118/74 04/20/22 02:46 Pulse Ox 97 04/19/22 23:46 O2 Del Method 04/19/22 23:46 BMI result Body Mass Index 48.9 Const: Other: patient is lying down Flat comfortably, no evidence of shortness of breath. General: cooperative and no acute distress Orientation/consciousness: patient oriented x3 Eyes: General: appearance normal, both eyes and all related structures Pupils: Equal, round and reactive pupils present Resp: Effort & Inspection: normal respiratory effort and able to speak in complete sentences Cardio: Rate: regular rate Rhythm: regular rhythm GI: Other: abdomen is obese, nontender, no rebound or guarding Palpation (GI): Soft to palpation Auscultation: normal bowel sounds Skin: General skin exam: no rashes or lesions noted Neuro: General: patient oriented x3 Cranial nerves: Yes Equal, round and reactive pupils present Cognition (Neuro): normal cognition Extrem: Other: no evidence of pedal edema General: Yes normal to inspection and Yes no pedal edema Results Labs CBC and Chem 7: 04/19/22 21:53 04/19/22 21:53 Labs: Laboratory Results - last 24 hr 04/19/22 04/19/22 04/19/22 21:53 21:53 21:53 MCV 85.1 MCH 26.2 L MCHC 30.7 L RDW 15.4 Plt Count 252 D MPV 9.4 Immature Gran % (Auto) 0.6 H Neut % (Auto) 85.4 H Lymph % (Auto) 6.0 L [place] % (Auto) 6.7 Eos % (Auto) 1.0 Baso % (Auto) 0.3 Lymph # (Auto) 0.6 L [place] # (Auto) 0.7 Eos # (Auto) 0.1 Baso # (Auto) 0.0 Abs Immat Gran (auto) 0.06 H Absolute Neuts (auto) 9.1 H Absolute Nucleated RBC 0.000 Nucleated RBC % (auto) 0.0 VBG pH VBG pCO2 VBG pO2 VBG HCO3 VBG O2 Saturation VBG Base Excess Anion Gap 22 H Estim Creat Clear Calc 31.4 Estimated GFR 19 Random Glucose 231 H Lactic Acid 0.7 Calcium 8.3 L Total Bilirubin 0.3 AST 24 D ALT 21 Alkaline Phosphatase 73 B-Natriuretic Peptide Total Protein 6.8 Albumin 3.6 Urine Color Urine Appearance Urine pH Ur Specific [place] Urine Protein Urine Glucose (UA) Urine Ketones Urine Blood Urine Nitrite Ur Leukocyte Esterase Urine RBC Urine WBC Ur Squamous Epith Cells Urine Bacteria Hyaline Casts COVID-19 ([facility]) COVID-19 Clin Com 04/19/22 04/19/22 04/20/22 21:58 21:58 00:44 MCV MCH MCHC RDW Plt Count MPV Immature Gran % (Auto) Neut % (Auto) Lymph % (Auto) [place] % (Auto) Eos % (Auto) Baso % (Auto) Lymph # (Auto) [place] # (Auto) Eos # (Auto) Baso # (Auto) Abs Immat Gran (auto) Absolute Neuts (auto) Absolute Nucleated RBC Nucleated RBC % (auto) VBG pH 7.32 VBG pCO2 41 VBG pO2 47 VBG HCO3 22 VBG O2 Saturation 72.0 VBG Base Excess -3.6 Anion Gap Estim Creat Clear Calc Estimated GFR Random Glucose Lactic Acid Calcium Total Bilirubin AST ALT Alkaline Phosphatase B-Natriuretic Peptide 126 H Total Protein Albumin Urine Color Urine Appearance Urine pH Ur Specific [place] Urine Protein Urine Glucose (UA) Urine Ketones Urine Blood Urine Nitrite Ur Leukocyte Esterase Urine RBC Urine WBC Ur Squamous Epith Cells Urine Bacteria Hyaline Casts COVID-19 ([facility]) Negative COVID-19 [facility] Com See Note 04/20/22 03:50 MCV MCH MCHC RDW Plt Count MPV Immature Gran % (Auto) Neut % (Auto) Lymph % (Auto) [place] % (Auto) Eos % (Auto) Baso % (Auto) Lymph # (Auto) [place] # (Auto) Eos # (Auto) Baso # (Auto) Abs Immat Gran (auto) Absolute Neuts (auto) Absolute Nucleated RBC Nucleated RBC % (auto) VBG pH VBG pCO2 VBG pO2 VBG HCO3 VBG O2 Saturation VBG Base Excess Anion Gap Estim Creat Clear Calc Estimated GFR Random Glucose Lactic Acid Calcium Total Bilirubin AST ALT Alkaline Phosphatase B-Natriuretic Peptide Total Protein Albumin Urine Color Yellow Urine Appearance Clear Urine pH 5.0 Ur Specific [place] 1.010 Urine Protein Negative Urine Glucose (UA) Negative Urine Ketones Negative Urine Blood Negative Urine Nitrite Negative Ur Leukocyte Esterase Small (1+) H Urine RBC 0-2 Urine WBC 6-10 H Ur Squamous Epith Cells 0-2 Urine Bacteria None Seen Hyaline Casts 3-5 COVID-19 ([facility]) COVID-19 Clin Com Imaging Radiologist's Impressions: Impressions Abdomen/Pelvis CT 04/19/22 23:45 IMPRESSION: Stool ball within the rectum with equivocal changes of stercoral colitis. No chest pathology. Chest CT 04/19/22 23:45 IMPRESSION: Stool ball within the rectum with equivocal changes of stercoral colitis. No chest pathology. Assessment and Plan (1) Abdominal pain: Status: Acute (2) Stercoral colitis: Status: Acute (3) Constipation: Qualifiers: Constipation type: chronic idiopathic constipation Qualified Code(s): K59.04 - Chronic idiopathic constipation Status: Acute (4) FELICIA (acute kidney injury): Status: Acute (5) DANIEL (obstructive sleep apnea): Status: Acute (6) Chronic respiratory failure with hypoxia: Status: Acute Plan 61-year-old female with extensive past medical history that includes DANIEL, obesity hypoventilation syndrome, asthma COPD, as well as CHF with reduced ejection fraction who presents to the hospital with complaints of abdominal pain found to have stercoral colitis # abdominal pain - secondary to severe constipation as well as fecal ball as well as sterile Coral colitis - CT abdomen as above - patient did move her bowels in the ED with the expulsion of the fecal ball - will start her on bowel regimen, with MiraLax daily, as well as docusate b.i.d. - monitor for resolution of constipation # FELICIA - likely prerenal secondary to dehydration - patient does not appear in volume overload, she is laying flat in bed with no orthopnea or PND, no lower extremity edema. She has hypoxia at baseline with baseline oxygen requirement but denies any dyspnea at this time. - Will treat with gentle hydration - monitor respiratory status given her underlying CHF - follow BMP closely # DANIEL/ OHS - patient noncompliant with CPAP at home - no CO2 retention at this time - continue CPAP at bedtime # chronic respiratory failure with hypoxia - continue oxygen supplement as needed, keep O2 saturation between 88-92% given her underlying COPD # nonischemic cardiomyopathy/ CHF with reduced ejection fraction - not in exacerbation at this time - no orthopnea, no PND, no dyspnea, no lower extremity edema, BNP not significantly elevated - no evidence of fluids in lungs per chest CT - at this time will hold diuretics given FELICIA - resume once kidney function improves - monitor respiratory and volume status, resume diuretics sooner if indicated # diabetes - low-dose sliding scale insulin - continue home insulin - diabetic diet # hypertension - stable - continue home antihypertensives DVT prophylaxis: Heparin subQ Pt will require a minimum 2 night hospital stay for IV fluids, Quality Stroke Does the patient have a stroke diagnosis?: No VTE Prior VTE?: No VTE Risk Level:: Medical - moderate - high VTE Device Contraindication: Treatment Not Indicated VTE Drug Contraindication: N/A - Med Ordered
[2022-04-20 06:21] LABS: MANUAL DIFF FLAG NO
[2022-04-20 06:36] LABS: Basophils Percent Auto 0.2 % (0-2); Eosinophils Absolute Auto 0.2 X10*3/uL (0.0-0.4); Eosinophils Percent Auto 1.5 % (0-4); Hematocrit 31.3 % (37.0-47.0); Hemoglobin 9.6 g/dl (12.0-16.0); Imm Gran Abs Auto 0.05 X10*3/uL (0.00-0.03); Imm Gran Pct Auto 0.5 % (0.0-0.4); Lymphocytes Absolute Auto 1.1 X10*3/uL (1.2-4.9); Lymphocytes Percent Auto 10.2 % (20-40); Mean Corpuscular HGB Conc 30.7 g/dl (31.0-35.0); Mean Corpuscular Hemoglobin 26.5 pg (27.0-33.0); Mean Corpuscular Volume 86.5 fL (80.0-98.0); Mean Platelet Volume 9.8 fL (9.4-12.3); Monocytes Absolute Auto 0.9 X10*3/uL (0.1-1.2); Monocytes Percent Auto 8.7 % (2-11); Neutrophils Absolute Auto 8.3 x10*3/uL (2.0-8.3); Neutrophils Percent Auto 78.9 % (45-73); Platelet Count 266 X10*3/uL (160-400); Red Blood Count 3.62 X10*6/uL (4.20-5.50); Red Cell Distribution Width 15.4 % (11.0-16.0); White Blood Count 10.5 X10*3/uL (4.8-10.8)
[2022-04-20] MEDS: Lactated Ringers 1,000 ML 100 ML IVCONT ×2 (06:39→16:15)
[2022-04-20 06:50] LABS: Anion Gap 20 (12-20); Blood Urea Nitrogen 107 mg/dL (9-16); Calcium 8.3 mg/dL (8.4-10.2); Carbon Dioxide 23 mmol/L (22-29); Chloride 101 mmol/L (96-108); Creatinine Clr Calc Pharmacy 37.2; Estimated Glomerular Filt Rate 24; Glucose Random 224 mg/dL (60-115); Potassium 4.4 mmol/L (3.3-5.1); Sodium 140 mmol/L (135-145)
[2022-04-20] MEDS: cefTRIAXone sodium 1 GM in 0.9 % Sodium Chloride 50 ML IV (06:53)
--- NOTE | 2022-04-20 06:57 | PC.NURSE ---
LR paused to infuse Ceftriaxone.
[2022-04-20 07:11] VITALS: BP 101/64; PULSE 71; RESP 13; TEMP 37.4; O2SAT 96
--- NOTE | 2022-04-20 07:12 | PC.NURSE ---
Pt daughter Tess called and would like to be updated as things change and when pt gets a room. [phone]
[2022-04-20 07:31] LABS: Glucose, Whole Blood 198 mg/dL (60-115)
[2022-04-20] MEDS: polyethylene glycoL 3350 17 GM POWD.PACK PO (08:30)
[2022-04-20 08:47] LABS: Glucose, Whole Blood 176 mg/dL (60-115)
[2022-04-20 09:45] VITALS: BP 106/46; PULSE 71; RESP 15; TEMP 36.7; O2SAT 97
--- NOTE | 2022-04-20 09:58 | PC.NURSE ---
Pt sleeping very soundly this am, this nurse woke pt up for morning medications. pt states don't fucking wake me when I am sleeping, also I want to go home . This nurse apologized and let the pt know that is was time for morning medications and that there was a plan in place for admission. The pt was agreeable to the plan and stated that she is ready to get better . Morning medications were then administered per SEP and pt was provided with breakfast. Pt is now resting comfortably in bed.
--- NOTE | 2022-04-20 10:53 | PHA.MEDREC ---
Pharmacy Consult ? Medication Reconciliation Pharmacy has completed the medication reconciliation. Patient was poor historian of medications. Was able to verify some meds with patient. Patient states Lantus is twice a day injection, however claim history and recent discharge (04/14) state only a Lantus bedtime injection. Called daughter Tess ([phone]) and verified rest of medications. Patient's daughter Tess also stated that recent discharge packet is up to date on what medications the patient currently takes at home.
[2022-04-20 11:40] LABS: Glucose, Whole Blood 200 mg/dL (60-115)
[2022-04-20] MEDS: Heparin Sodium,Porcine 5,000 UNIT/ML VIAL 5000 UNIT SUBCUT (13:05)
[2022-04-20] MEDS: Insulin Lispro 100 UNIT/ML 3 ML VIAL SUBCUT ×2 (13:05→20:06)
[2022-04-20 14:11] VITALS: BP 126/33; PULSE 72; RESP 18; TEMP 36.8; O2SAT 99
--- NOTE | 2022-04-20 18:05 | PC.NURSE ---
pt yelling out in pain, stating my bottom hurts, where the wound is . This nurse, PEPE Fletcher and KELLY Hoang repositioned the pt on her side to relieve pressure on her bottom. Wound has fresh dressing on it with no drainage
[2022-04-20 18:39] VITALS: BMI 49.2
[2022-04-20 19:44] LABS: Glucose, Whole Blood 266 mg/dL (60-115)
[2022-04-20] MEDS: Omeprazole 20 MG CAPSULE.DR PO (22:00)
[2022-04-20] MEDS: risperiDONE 1 MG TABLET PO (22:00)
[2022-04-20] MEDS: TiZANidine HCL 4 MG TABLET PO (22:00)
[2022-04-20] MEDS: Atorvastatin Calcium 10 MG TABLET PO (22:01)
[2022-04-20] MEDS: Pregabalin 100 MG CAPSULE PO (22:01)
[2022-04-20] MEDS: Insulin Glargine,Hum.rec.anlog 100 UNIT/ML 10 ML VIAL 50 UNIT SUBCUT (22:02)
--- NOTE | 2022-04-20 23:28 | PC.NURSE ---
ASSUMED CARE OF PATIENT AT THIS TIME ,PATIENT MOVED INTO A HOSPITAL BED ,VITALS TAKEN ,LAWRENCE CATHETER EMPTY ,OUTPUT 1100 ML ,THIS PCT OFFER PATIENT FOOD AND FLUIDS ,PATIENT HAD A [employer] SANDWICH AND 2 CUPS OF CRANBERRY JUICE .
[2022-04-20 23:32] VITALS: BP 140/65; PULSE 72; RESP 18; TEMP 36.9; O2SAT 98
[2022-04-21] MEDS: HaloperidoL 1 MG TABLET 2 MG PO (00:16)
[2022-04-21] MEDS: Lactated Ringers 1,000 ML 100 ML IVCONT ×3 (00:16→20:32)
[2022-04-21] MEDS: Heparin Sodium,Porcine 5,000 UNIT/ML VIAL 5000 UNIT SUBCUT ×4 (00:16→20:48)
[2022-04-21] MEDS: cefTRIAXone sodium 1 GM in 0.9 % Sodium Chloride 50 ML IV (05:02)
[2022-04-21 07:24] LABS: Glucose, Whole Blood 212 mg/dL (60-115)
[2022-04-21] MEDS: Insulin Lispro 100 UNIT/ML 3 ML VIAL SUBCUT ×4 (07:30→20:35)
[2022-04-21] MEDS: Pregabalin 100 MG CAPSULE PO ×2 (08:05→20:35)
[2022-04-21] MEDS: Isosorbide Mononitrate 30 MG TAB.ER.24H PO (08:05)
[2022-04-21] MEDS: Cholecalciferol (Vitamin D3) 25 MCG TABLET PO (08:05)
[2022-04-21] MEDS: FLUoxetine HCl 20 MG CAPSULE 40 MG PO (08:06)
[2022-04-21] MEDS: Metoprolol Succinate ER 50 MG TAB.ER.24H PO (08:06)
[2022-04-21] MEDS: risperiDONE 1 MG TABLET PO ×2 (08:06→20:35)
[2022-04-21] MEDS: Gabapentin 400 MG CAPSULE PO ×2 (08:06→13:12)
[2022-04-21] MEDS: Aspirin Enteric Coated 81 MG TABLET.DR PO (08:06)
[2022-04-21] MEDS: polyethylene glycoL 3350 17 GM POWD.PACK PO (08:08)
[2022-04-21 08:15] VITALS: BP 134/52; PULSE 82; RESP 20; O2SAT 99
--- NOTE | 2022-04-21 08:45 | PC.NURSE ---
incontinent care done and pt repositioned, ghotra emptied 1200 ml, coccyx dressing changed.
--- NOTE | 2022-04-21 09:53 | MHC.CM.PN ---
Patient lives alone in an apartment and she uses a walker to assist with mobility. Patient receives 20 [employer] hours per week and she is active with [facility]. Home/resume said services is the goal and CM has initiated and will follow for dc planning. PCP is DR. Tavo Huber and Patient has received no Covid vax. Patient's Daughter/Tess is her HCP.
[2022-04-21 13:07] LABS: Glucose, Whole Blood 230 mg/dL (60-115)
[2022-04-21 13:27] VITALS: BP 198/58; PULSE 82; RESP 18; TEMP 36.5; O2SAT 98
--- NOTE | 2022-04-21 14:50 | P.PNIM_ITS ---
Subjective Subjective Date of Service: 05/17/22 Interval History: Seen in f/u for abdominal pain, FELICIA interval history: no n/v, pain better Review of Systems no fever no n/v Physical Exam Vital Signs: Vital Signs: Last Vital Signs Temp 97.7 F 04/21/22 13:27 Pulse 82 04/21/22 13:27 Resp 18 04/21/22 13:27 BP 198/58 H 04/21/22 13:27 Pulse Ox 98 04/21/22 13:27 O2 Del Method 04/21/22 13:27 O2 Flow Rate 2 04/20/22 23:32 BMI result Body Mass Index 49.2 Const: Other: General: AO X 3, no acute distress Resp: CTA bilateral CVS: S1,S2,RRR GI: +BS, NT, no distention Skin: No rash Neuro: motor grossly intact Psych: appropriate affect Objective Data Active Medications Acetaminophen (Acetaminophen 325 Mg Tablet) 650 mg PO Q6H PRN PRN Reason: Pain, Mild (Pain Scale 1-3) Albuterol Sulfate (Albuterol Sulfate 90 Mcg 8 Gm Inhaler) 2 puff INHALE Q4H PRN PRN Reason: Dyspnea Albuterol/Ipratropium (Albuterol/Iprat 2.5/0.5mg 3 Ml Ampul.Neb) 3 ml INHALE RQ4H WHILE AWAKE PRN PRN Reason: Shortness Of Breath/Wheezing Aspirin (Aspirin Enteric Coated 81 Mg Tablet.) 81 mg PO DAILY [facility] Last Admin: 04/21/22 08:06 Dose: 81 mg Documented By: MIGUELITO Atorvastatin Calcium (Atorvastatin Calcium 10 Mg Tablet) 10 mg PO BEDTIME [facility] Last Admin: 04/20/22 22:01 Dose: 10 mg Documented By: KRISTINE Clonidine HCl (Clonidine Hcl 0.1 Mg Tablet) 0.1 mg PO TID PRN; Protocol PRN Reason: hyperarousal, anxiety, panic Dextrose (Dextrose 50 % 25 Gm/50 Ml Syringe) 25 gm IVPUSH Q15M PRN; Protocol PRN Reason: per Hypoglycemia Standing Ord. Docusate Sodium (Docusate Sodium 100 Mg Capsule) 100 mg PO DAILY PRN PRN Reason: Constipation Fluoxetine HCl (Fluoxetine Hcl 20 Mg Capsule) 40 mg PO DAILY [facility] Last Admin: 04/21/22 08:06 Dose: 40 mg Documented By: MIGUELITO Fluticasone Propionate (Fluticasone Propionate 100 Mcg Blst.W.Dev) 1 puff INHALE RBID [facility] Last Admin: 04/21/22 07:20 Dose: Not Given Documented By: ZENA Non-Admin Reason: Med Not Available Gabapentin (Gabapentin 400 Mg Capsule) 400 mg PO BID@0900,1200 [facility] Last Admin: 04/21/22 13:12 Dose: 400 mg Documented By: MIGUELITO Glucose (Glucose Gel 15 Gm Gel..Gram.) 15 gm PO Q15M PRN; Protocol PRN Reason: per Hypoglycemia Standing Ord. Haloperidol (Haloperidol 1 Mg Tablet) 2 mg PO BEDTIME PRN PRN Reason: Agitation Last Admin: 04/21/22 00:16 Dose: 2 mg Documented By: COBY Heparin Sodium (Porcine) (Heparin Sodium,Porcine 5,000 Unit/Ml Vial) 5,000 unit SUBCUT Q8H [facility] Last Admin: 04/21/22 14:29 Dose: 5,000 unit Documented By: STACIE Lactated Ringer's (Lr) 1,000 mls @ 100 mls/hr IVCONT .Q10H [facility] Last Admin: 04/21/22 11:00 Dose: 100 mls/hr Documented By: MIGUELITO Ceftriaxone Sodium 1 gm/ (Sodium Chloride) 50 mls @ 100 mls/hr IV Q24H [facility] Last Infusion: 04/21/22 06:34 Dose: 0 mls/hr Documented By: COBY Insulin Glargine (Insulin Glargine,Hum.Rec.Anlog 100 Unit/Ml 10 Ml Vial) 50 unit SUBCUT BEDTIME [facility] Last Admin: 04/20/22 22:02 Dose: 50 unit Documented By: KRISTINE Insulin Human Lispro (Insulin Lispro 100 Unit/Ml 3 Ml Vial) 0 unit SUBCUT QIDACHS [facility]; Protocol Last Admin: 04/21/22 13:08 Dose: 4 unit Documented By: MIGUELITO Isosorbide Mononitrate (Isosorbide Mononitrate 30 Mg Tab.Er.24h) 30 mg PO DAILY [facility]; Protocol Last Admin: 04/21/22 08:05 Dose: 30 mg Documented By: MIGUELITO Meclizine HCl (Meclizine Hcl 25 Mg Tablet) 25 mg PO TID PRN PRN Reason: Dizziness Melatonin (Melatonin 3 Mg Tablet) 6 mg PO BEDTIME PRN PRN Reason: insomnia Metoprolol Succinate (Metoprolol Succinate Er 50 Mg Tab.Er.24h) 50 mg PO DAILY [facility]; Protocol Last Admin: 04/21/22 08:06 Dose: 50 mg Documented By: MIGUELITO Omeprazole (Omeprazole 20 Mg Capsule.Dr) 20 mg PO BEDTIME [facility] Last Admin: 04/20/22 22:00 Dose: 20 mg Documented By: KRISTINE Ondansetron HCl (Ondansetron Hcl 4 Mg/2 Ml Vial) 4 mg IVPUSH Q8H PRN PRN Reason: Nausea and Vomiting Pharmacy Consult (Consult Rx Perform Med Rec) 1 each MISCELLANE ONCE PRN PRN Reason: Consult order Polyethylene Glycol (Polyethylene Glycol 3350 17 Gm Powd.Pack) 17 gm PO DAILY [facility] Last Admin: 04/21/22 08:08 Dose: 17 gm Documented By: MIGUELITO Pregabalin (Pregabalin 100 Mg Capsule) 100 mg PO BID [facility] Last Admin: 04/21/22 08:05 Dose: 100 mg Documented By: MIGUELITO Risperidone (Risperidone 1 Mg Tablet) 1 mg PO BID [facility] Last Admin: 04/21/22 08:06 Dose: 1 mg Documented By: MIGUELITO Sodium Chloride (0.9 % Sodium Chloride Flush 3 Ml Syringe) 3 ml IVFLUSH QSHIFT [facility] Last Admin: 04/21/22 07:33 Dose: Not Given Documented By: MIGUELITO Non-Admin Reason: IV Running Tizanidine HCl (Tizanidine Hcl 4 Mg Tablet) 4 mg PO BEDTIME [facility] Last Admin: 04/20/22 22:00 Dose: 4 mg Documented By: KRISTINE Vitamin D (Cholecalciferol (Vitamin D3) 25 Mcg Tablet) 25 mcg PO DAILY [facility] Last Admin: 04/21/22 08:05 Dose: 25 mcg Documented By: MIGUELITO Labs CBC & Chem 7: 04/20/22 06:09 04/28/22 08:19 Labs: Laboratory Results - last 24 hr 04/20/22 04/21/22 04/21/22 19:40 07:02 13:01 POC Glucose 266 H 212 H 230 H Microbiology Microbiology Results: Microbiology 04/20/22 04:43 Urine Culture - Final Urine Catheterized - Elliott Catheter 04/19/22 22:11 Blood Culture - Preliminary Blood - Venous No growth after 24 hours. 04/19/22 21:53 Blood Culture - Preliminary Blood - Venous No growth after 24 hours. Assessment and Plan (1) CHF exacerbation: Status: Acute Plan 61-year-old female with extensive past medical history that includes DANIEL, obesity hypoventilation syndrome, asthma COPD, as well as CHF with reduced ejection fraction who presents to the hospital with complaints of abdominal pain found to have stercoral colitis # ?abdominal pain -? secondary to severe constipation as well as fecal ball as well as sterile Coral colitis -? CT abdomen as above -? patient did move her bowels in the ED with the expulsion of the fecal ball -? will start her on? bowel regimen, with MiraLax daily, as well as docusate b.i.d. -? monitor for resolution of constipation #? FELICIA -? likely prerenal secondary to dehydration -? patient does not appear in volume overload, she is laying flat in bed with no orthopnea or PND, no lower extremity edema.? She has hypoxia at baseline with baseline oxygen requirement but denies any dyspnea at this time. - ? Will treat with gentle hydration -? monitor respiratory status given her underlying CHF -? follow BMP closely #? DANIEL/ OHS -? patient noncompliant with CPAP at home -? no CO2 retention at this time -? continue CPAP at bedtime #? chronic respiratory failure with hypoxia -? continue oxygen supplement as needed, keep O2 saturation between 88-92% given her underlying COPD # ? nonischemic cardiomyopathy/ CHF with reduced ejection fraction -? not in exacerbation at this time -? no orthopnea, no PND, no dyspnea, no lower extremity edema, BNP not significantly elevated -? no evidence of? fluids in lungs per chest CT -? at this time will hold diuretics given FELICIA - ? resume once kidney function improves -? monitor respiratory and volume status,? resume diuretics sooner if indicated #? diabetes -? low-dose sliding scale insulin -? continue home insulin -? diabetic diet #? hypertension -? stable -? continue home antihypertensives ?DVT prophylaxis:? Heparin subQ ?Pt will require a minimum 2 night hospital stay for? IV fluids, Quality Stroke Does the patient have a stroke diagnosis?: No VTE Prior VTE?: No VTE Risk Level:: Medical - moderate - high VTE Device Contraindication: Treatment Not Indicated VTE Drug Contraindication: N/A - Med Ordered
[2022-04-21 16:00] VITALS: BP 136/64; PULSE 81; RESP 19; TEMP 36.4; O2SAT 99
[2022-04-21 16:56] LABS: Anion Gap 19 (12-20); Blood Urea Nitrogen 52 mg/dL (9-16); Calcium 8.3 mg/dL (8.4-10.2); Carbon Dioxide 23 mmol/L (22-29); Chloride 107 mmol/L (96-108); Creatinine Clr Calc Pharmacy 65.1; Estimated Glomerular Filt Rate 45; Glucose Random 313 mg/dL (60-115); Potassium 4.7 mmol/L (3.3-5.1); Sodium 144 mmol/L (135-145)
[2022-04-21 17:00] LABS: Glucose, Whole Blood 270 mg/dL (60-115)
[2022-04-21 18:19] LABS: Glucose, Whole Blood 259 mg/dL (60-115)
--- NOTE | 2022-04-21 18:31 | PC.NURSE ---
Assumed patient care at 1500- Patient alert and oriented, VSS. POC 270, given insulin per EMAR. Patient frequently repositioned. Elliott in place, patent, draining yellow urine. Patient transferred to [facility], report given to Chandni CANTU. Patient verbalized understanding of plan.
[2022-04-21 18:52] VITALS: BP 157/69; PULSE 89; RESP 16; TEMP 36.7; O2SAT 96
[2022-04-21 19:58] LABS: Glucose, Whole Blood 256 mg/dL (60-115)
[2022-04-21] MEDS: Insulin Glargine,Hum.rec.anlog 100 UNIT/ML 10 ML VIAL 50 UNIT SUBCUT (20:34)
[2022-04-21] MEDS: Atorvastatin Calcium 10 MG TABLET PO (20:35)
[2022-04-21] MEDS: TiZANidine HCL 4 MG TABLET PO (20:35)
[2022-04-21] MEDS: Omeprazole 20 MG CAPSULE.DR PO (20:35)
[2022-04-21] MEDS: 0.9 % Sodium Chloride Flush 3 ML SYRINGE IVFLUSH (20:35)
[2022-04-21 23:27] VITALS: BP 152/67; PULSE 72; RESP 18; TEMP 36.8; O2SAT 97
[2022-04-22] VITALS (8 sets, daily range): BP systolic 136–176; BP diastolic 58–79; PULSE 72–89; RESP 18–20; TEMP 36.2–37.2; O2SAT 94–98; BMI 49.2
[2022-04-22] MEDS: HaloperidoL 1 MG TABLET 2 MG PO (03:22)
[2022-04-22] MEDS: cefTRIAXone sodium 1 GM in 0.9 % Sodium Chloride 50 ML IV (06:03)
[2022-04-22] MEDS: Heparin Sodium,Porcine 5,000 UNIT/ML VIAL 5000 UNIT SUBCUT ×3 (06:04→21:09)
[2022-04-22 07:26] LABS: Glucose, Whole Blood 220 mg/dL (60-115)
[2022-04-22] MEDS: Insulin Lispro 100 UNIT/ML 3 ML VIAL SUBCUT ×4 (07:34→19:38)
[2022-04-22] MEDS: 0.9 % Sodium Chloride Flush 3 ML SYRINGE IVFLUSH ×3 (07:35→19:38)
[2022-04-22] MEDS: FLUoxetine HCl 20 MG CAPSULE 40 MG PO (07:36)
[2022-04-22] MEDS: Metoprolol Succinate ER 50 MG TAB.ER.24H PO (07:36)
[2022-04-22] MEDS: Isosorbide Mononitrate 30 MG TAB.ER.24H PO (07:36)
[2022-04-22] MEDS: Aspirin Enteric Coated 81 MG TABLET.DR PO (07:36)
[2022-04-22] MEDS: risperiDONE 1 MG TABLET PO ×2 (07:36→19:37)
[2022-04-22] MEDS: Pregabalin 100 MG CAPSULE PO ×2 (07:36→19:37)
[2022-04-22] MEDS: Gabapentin 400 MG CAPSULE PO ×2 (07:36→11:14)
[2022-04-22] MEDS: polyethylene glycoL 3350 17 GM POWD.PACK PO (07:37)
[2022-04-22] MEDS: Cholecalciferol (Vitamin D3) 25 MCG TABLET PO (07:37)
[2022-04-22 07:38] LABS: Anion Gap 16 (12-20); Blood Urea Nitrogen 42 mg/dL (9-16); Calcium 8.4 mg/dL (8.4-10.2); Carbon Dioxide 28 mmol/L (22-29); Chloride 106 mmol/L (96-108); Creatinine Clr Calc Pharmacy 71.5; Estimated Glomerular Filt Rate 50; Glucose Random 270 mg/dL (60-115); Potassium 4.6 mmol/L (3.3-5.1); Sodium 145 mmol/L (135-145)
[2022-04-22] MEDS: Fluticasone Propionate 100 MCG BLST.W.DEV 1 PUFF INHALE ×2 (07:41→20:07)
[2022-04-22] MEDS: cloNIDine HCL 0.1 MG TABLET PO ×2 (08:45→19:36)
[2022-04-22 11:04] LABS: Glucose, Whole Blood 273 mg/dL (60-115)
--- NOTE | 2022-04-22 11:22 | MHC.CLN ---
RE: CONSULT PT WITH INCREASED NUTRITION RISK R/T PRESSURE INJURY PO INTAKE 100% DIET RX: 1800DM-APPROPRIATE RECOMMEND ADDING ENSURE MAX BID TO PROVIDE INCREASED PO PROTEIN TO PROMOTE WOUND HEALING SUPP TOP PROVIDE 300KCALS, 60G PROTEIN MONITOR PO INTAKE CLOSELY SEE ALSO FULL CLINICAL NUTRITION ASSESSMENT
--- NOTE | 2022-04-22 14:23 | HO.PM.IMPN ---
Subjective Subjective Date of Service: 04/22/22 Interval History: f/u for abdominal pain, FELICIA Review of Systems Encouraged for p.o. intake, denies any chest pain or shortness of breath or fever chills Produced 1 BM Physical Exam Vital Signs: Vital Signs: Last Vital Signs Temp 97.8 F 04/22/22 11:05 Pulse 77 04/22/22 11:05 Resp 20 04/22/22 11:05 BP 142/64 H 04/22/22 11:05 Pulse Ox 97 04/22/22 11:05 O2 Del Method 04/22/22 11:05 O2 Flow Rate 3 04/22/22 11:05 BMI result Body Mass Index 49.2 General: AO X 3, no acute distress Resp:? CTA bilateral CVS: S1,S2,RRR GI: +BS, NT, no distention Skin: buttock wounds/pressure injury ( as per staff and patient present at admission) Neuro:? motor grossly intact Psych: appropriate affect Objective Data Active Medications Acetaminophen (Acetaminophen 325 Mg Tablet) 650 mg PO Q6H PRN PRN Reason: Pain, Mild (Pain Scale 1-3) Albuterol Sulfate (Albuterol Sulfate 90 Mcg 8 Gm Inhaler) 2 puff INHALE Q4H PRN PRN Reason: Dyspnea Albuterol/Ipratropium (Albuterol/Iprat 2.5/0.5mg 3 Ml Ampul.Neb) 3 ml INHALE RQ4H WHILE AWAKE PRN PRN Reason: Shortness Of Breath/Wheezing Aspirin (Aspirin Enteric Coated 81 Mg Tablet.) 81 mg PO DAILY [facility] Last Admin: 04/22/22 07:36 Dose: 81 mg Documented By: INEZ Atorvastatin Calcium (Atorvastatin Calcium 10 Mg Tablet) 10 mg PO BEDTIME [facility] Last Admin: 04/21/22 20:35 Dose: 10 mg Documented By: CASTILAkshat Clonidine HCl (Clonidine Hcl 0.1 Mg Tablet) 0.1 mg PO TID PRN; Protocol PRN Reason: hyperarousal, anxiety, panic Last Admin: 04/22/22 08:45 Dose: 0.1 mg Documented By: INEZ Dextrose (Dextrose 50 % 25 Gm/50 Ml Syringe) 25 gm IVPUSH Q15M PRN; Protocol PRN Reason: per Hypoglycemia Standing Ord. Docusate Sodium (Docusate Sodium 100 Mg Capsule) 100 mg PO DAILY PRN PRN Reason: Constipation Fluoxetine HCl (Fluoxetine Hcl 20 Mg Capsule) 40 mg PO DAILY [facility] Last Admin: 04/22/22 07:36 Dose: 40 mg Documented By: INEZ Fluticasone Propionate (Fluticasone Propionate 100 Mcg Blst.W.Dev) 1 puff INHALE RBID [facility] Last Admin: 04/22/22 07:41 Dose: 1 puff Documented By: ZENA Gabapentin (Gabapentin 400 Mg Capsule) 400 mg PO BID@0900,1200 [facility] Last Admin: 04/22/22 11:14 Dose: 400 mg Documented By: INEZ Glucose (Glucose Gel 15 Gm Gel..Gram.) 15 gm PO Q15M PRN; Protocol PRN Reason: per Hypoglycemia Standing Ord. Haloperidol (Haloperidol 1 Mg Tablet) 2 mg PO BEDTIME PRN PRN Reason: Agitation Last Admin: 04/22/22 03:22 Dose: 2 mg Documented By: JESSICA Heparin Sodium (Porcine) (Heparin Sodium,Porcine 5,000 Unit/Ml Vial) 5,000 unit SUBCUT Q8H [facility] Last Admin: 04/22/22 06:04 Dose: 5,000 unit Documented By: JESSICA Ceftriaxone Sodium 1 gm/ (Sodium Chloride) 50 mls @ 100 mls/hr IV Q24H [facility] Last Infusion: 04/22/22 07:43 Dose: 0 mls/hr Documented By: INEZ Insulin Glargine (Insulin Glargine,Hum.Rec.Anlog 100 Unit/Ml 10 Ml Vial) 50 unit SUBCUT BEDTIME [facility] Last Admin: 04/21/22 20:34 Dose: 50 unit Documented By: JESSICA Insulin Human Lispro (Insulin Lispro 100 Unit/Ml 3 Ml Vial) 0 unit SUBCUT QIDACHS [facility]; Protocol Last Admin: 04/22/22 11:14 Dose: 6 unit Documented By: INEZ Isosorbide Mononitrate (Isosorbide Mononitrate 30 Mg Tab.Er.24h) 30 mg PO DAILY [facility]; Protocol Last Admin: 04/22/22 07:36 Dose: 30 mg Documented By: INEZ Meclizine HCl (Meclizine Hcl 25 Mg Tablet) 25 mg PO TID PRN PRN Reason: Dizziness Melatonin (Melatonin 3 Mg Tablet) 6 mg PO BEDTIME PRN PRN Reason: insomnia Metoprolol Succinate (Metoprolol Succinate Er 50 Mg Tab.Er.24h) 50 mg PO DAILY [facility]; Protocol Last Admin: 04/22/22 07:36 Dose: 50 mg Documented By: INEZ Omeprazole (Omeprazole 20 Mg Capsule.) 20 mg PO BEDTIME [facility] Last Admin: 04/21/22 20:35 Dose: 20 mg Documented By: JESSICA Ondansetron HCl (Ondansetron Hcl 4 Mg/2 Ml Vial) 4 mg IVPUSH Q8H PRN PRN Reason: Nausea and Vomiting Pharmacy Consult (Consult Rx Perform Med Rec) 1 each MISCELLANE ONCE PRN PRN Reason: Consult order Polyethylene Glycol (Polyethylene Glycol 3350 17 Gm Powd.Pack) 17 gm PO DAILY [facility] Last Admin: 04/22/22 07:37 Dose: 17 gm Documented By: INEZ Pregabalin (Pregabalin 100 Mg Capsule) 100 mg PO BID [facility] Last Admin: 04/22/22 07:36 Dose: 100 mg Documented By: INEZ Risperidone (Risperidone 1 Mg Tablet) 1 mg PO BID [facility] Last Admin: 04/22/22 07:36 Dose: 1 mg Documented By: INEZ Sodium Chloride (0.9 % Sodium Chloride Flush 3 Ml Syringe) 3 ml IVFLUSH QSHIFT [facility] Last Admin: 04/22/22 07:35 Dose: 3 ml Documented By: INEZ Tizanidine HCl (Tizanidine Hcl 4 Mg Tablet) 4 mg PO BEDTIME [facility] Last Admin: 04/21/22 20:35 Dose: 4 mg Documented By: JESSICA Vitamin D (Cholecalciferol (Vitamin D3) 25 Mcg Tablet) 25 mcg PO DAILY [facility] Last Admin: 04/22/22 07:37 Dose: 25 mcg Documented By: INEZ Labs CBC & Chem 7: 04/20/22 06:09 04/22/22 05:49 Labs: Laboratory Results - last 24 hr 04/21/22 04/21/22 04/21/22 16:00 16:55 18:16 Anion Gap 19 Estim Creat Clear Calc 65.1 Estimated GFR 45 POC Glucose 270 H 259 H Random Glucose 313 H Calcium 8.3 L 04/21/22 04/22/22 04/22/22 19:53 05:49 07:17 Anion Gap 16 Estim Creat Clear Calc 71.5 Estimated GFR 50 POC Glucose 256 H 220 H Random Glucose 270 H Calcium 8.4 04/22/22 10:57 Anion Gap Estim Creat Clear Calc Estimated GFR POC Glucose 273 H Random Glucose Calcium Microbiology Microbiology Results: Microbiology 04/19/22 22:11 Blood Culture - Preliminary Blood - Venous No growth after 48 hours. 04/19/22 21:53 Blood Culture - Preliminary Blood - Venous No growth after 48 hours. 04/20/22 04:43 Urine Culture - Final Urine Catheterized - Elliott Catheter Assessment and Plan (1) Abdominal pain: Status: Acute (2) Constipation: Status: Acute (3) Decubitus ulcer: Status: Acute (4) Stercoral colitis: Status: Acute Plan 61-year-old female with extensive past medical history that includes DANIEL, obesity hypoventilation syndrome, asthma COPD, as well as CHF with reduced ejection fraction who presents to the hospital with complaints of abdominal pain found to have stercoral colitis # ?abdominal pain -? secondary to severe constipation as well as fecal ball as well as sterile Coral colitis -? CT abdomen as above -? patient did move her bowels in the ED with the expulsion of the fecal ball -? will start her on? bowel regimen, with MiraLax daily, as well as docusate b.i.d. -? monitor for resolution of constipation #? FELICIA -? likely prerenal secondary to dehydration-improving , -? patient does not appear in volume overload, she is laying flat in bed with no orthopnea or PND, no lower extremity edema.? She has hypoxia at baseline with baseline oxygen requirement but denies any dyspnea at this time. -? monitor respiratory status given her underlying CHF may need off iv hydration , encouraged for po hydration -? follow BMP closely #? DANIEL/ OHS -? patient noncompliant with CPAP at home -? no CO2 retention at this time -? continue CPAP at bedtime #? chronic respiratory failure with hypoxia -? continue oxygen supplement as needed, keep O2 saturation between 88-92% given her underlying COPD # ? nonischemic cardiomyopathy/ CHF with reduced ejection fraction -? not in exacerbation at this time -? no orthopnea, no PND, no dyspnea, no lower extremity edema, BNP not significantly elevated -? no evidence of? fluids in lungs per chest CT -? at this time will hold diuretics given FELICIA - ? resume once kidney function improves -? monitor respiratory and volume status,? resume diuretics sooner if indicated #? diabetes -? low-dose sliding scale insulin -? continue home insulin -? diabetic diet #? hypertension -? stable -? continue home antihypertensives b/l buttock wounds /pressures : wound care /nutrition/frequent turiing ,oob morbid obesity: Strongly encouraged to lose weight. ?DVT prophylaxis:? Heparin subQ ? inaptient need :felicia ,b/l buttock wounds /pressures-wound care eval/managment Quality Stroke Does the patient have a stroke diagnosis?: No VTE Prior VTE?: No VTE Risk Level:: Medical - moderate - high VTE Device Contraindication: Treatment Not Indicated VTE Drug Contraindication: N/A - Med Ordered
[2022-04-22 15:35] LABS: Glucose, Whole Blood 253 mg/dL (60-115)
--- NOTE | 2022-04-22 16:37 | HO.WOUNDCONS ---
History of Present Illness Data of Consult Service Date: 04/22/22 Requesting physician: Flakito Kraus Primary Care Provider: Tavo Huber MD HPI Reason for consult: Buttock ulcers 61-year-old female with impaired mobility at home who uses a walker to get around describing impaired mobility for more than 2 months. Complains of painful ulcers on her buttock of unclear chronicity but have been present at least a week or so prior to arrival to the hospital. She gets moderate drainage from this area. She came into the emergency department with constipation. She has COPD and CHF. She has fluid overload from time to time but denies shortness of breath today. She takes diuretics at home. We are asked to evaluate her buttock wounds and give recommendations in this hospital setting. She denies fever and redness. She is currently getting some fluids by IV. Review of Systems Review of Systems: Denies fever, shortness of breath and orthopnea. Admits to impaired mobility at home. Requires assistance with self-care. She is unable to see or manage her posterior anatomy and is unaware of any open wounds. Yes all other systems are reviewed and are negative [facility] Medical History Acute on chronic combined systolic and diastolic CHF (congestive heart failure) Asthma Cellulitis of right lower extremity Chronic pain CKD (chronic kidney disease) stage 3, GFR 30-59 ml/min Congestive heart failure Depression Diabetes Diabetic neuropathy, painful High cholesterol Hypertension Morbid obesity NICM (nonischemic cardiomyopathy) Obesity hypoventilation syndrome DANIEL (obstructive sleep apnea) Family History Mother HTN (hypertension) Diabetes CAD (coronary artery disease) Father HTN (hypertension) Diabetes CAD (coronary artery disease) Maternal Grandmother CAD (coronary artery disease) Surgical History Hx of cholecystectomy Social History Household Members: Unknown / Unable to assess Household Members Other:: GRANDSON Housing: House Housing Other:: with beef trimmer Do you presently have visiting nurse or other home services: Yes (Aidan) Alcohol intake: never Patient Tobacco Use Status: Former Tobacco user Tobacco use type: Cigarette Years Smoked: 38 Second Hand Smoke Exposure: No Substance Use Type: Marijuana Advance Directives Date on File: 12/19/20 service: No Current occupational status: disabled Meds Allergies Allergy/AdvReac Type Severity Reaction Status Date / Time ibuprofen Allergy Intermediate vommiting, Verified 04/04/22 10:51 itching acetaminophen [Tylenol] Allergy Mild Unknown Verified 04/05/22 05:56 morphine AdvReac Intermediate vomiting Verified 04/04/22 10:51 Active Medications: Current Medications Acetaminophen (Acetaminophen 325 Mg Tablet) 650 mg PO Q6H PRN PRN Reason: Pain, Mild (Pain Scale 1-3) Albuterol Sulfate (Albuterol Sulfate 90 Mcg 8 Gm Inhaler) 2 puff INHALE Q4H PRN PRN Reason: Dyspnea Albuterol/Ipratropium (Albuterol/Iprat 2.5/0.5mg 3 Ml Ampul.Neb) 3 ml INHALE RQ4H WHILE AWAKE PRN PRN Reason: Shortness Of Breath/Wheezing Aspirin (Aspirin Enteric Coated 81 Mg Tablet.Dr) 81 mg PO DAILY [facility] Last Admin: 04/22/22 07:36 Dose: 81 mg Atorvastatin Calcium (Atorvastatin Calcium 10 Mg Tablet) 10 mg PO BEDTIME [facility] Last Admin: 04/21/22 20:35 Dose: 10 mg Clonidine HCl (Clonidine Hcl 0.1 Mg Tablet) 0.1 mg PO TID PRN; Protocol PRN Reason: hyperarousal, anxiety, panic Last Admin: 04/22/22 08:45 Dose: 0.1 mg Dextrose (Dextrose 50 % 25 Gm/50 Ml Syringe) 25 gm IVPUSH Q15M PRN; Protocol PRN Reason: per Hypoglycemia Standing Ord. Docusate Sodium (Docusate Sodium 100 Mg Capsule) 100 mg PO DAILY PRN PRN Reason: Constipation Fluoxetine HCl (Fluoxetine Hcl 20 Mg Capsule) 40 mg PO DAILY [facility] Last Admin: 04/22/22 07:36 Dose: 40 mg Fluticasone Propionate (Fluticasone Propionate 100 Mcg Blst.W.Dev) 1 puff INHALE RBID [facility] Last Admin: 04/22/22 07:41 Dose: 1 puff Gabapentin (Gabapentin 400 Mg Capsule) 400 mg PO BID@0900,1200 [facility] Last Admin: 04/22/22 11:14 Dose: 400 mg Glucose (Glucose Gel 15 Gm Gel..Gram.) 15 gm PO Q15M PRN; Protocol PRN Reason: per Hypoglycemia Standing Ord. Haloperidol (Haloperidol 1 Mg Tablet) 2 mg PO BEDTIME PRN PRN Reason: Agitation Last Admin: 04/22/22 03:22 Dose: 2 mg Heparin Sodium (Porcine) (Heparin Sodium,Porcine 5,000 Unit/Ml Vial) 5,000 unit SUBCUT Q8H [facility] Last Admin: 04/22/22 14:47 Dose: 5,000 unit Ceftriaxone Sodium 1 gm/ (Sodium Chloride) 50 mls @ 100 mls/hr IV Q24H [facility] Last Infusion: 04/22/22 07:43 Dose: Infused Insulin Glargine (Insulin Glargine,Hum.Rec.Anlog 100 Unit/Ml 10 Ml Vial) 50 unit SUBCUT BEDTIME [facility] Last Admin: 04/21/22 20:34 Dose: 50 unit Insulin Human Lispro (Insulin Lispro 100 Unit/Ml 3 Ml Vial) 0 unit SUBCUT QIDACHS [facility]; Protocol Last Admin: 04/22/22 11:14 Dose: 6 unit Isosorbide Mononitrate (Isosorbide Mononitrate 30 Mg Tab.Er.24h) 30 mg PO DAILY [facility]; Protocol Last Admin: 04/22/22 07:36 Dose: 30 mg Meclizine HCl (Meclizine Hcl 25 Mg Tablet) 25 mg PO TID PRN PRN Reason: Dizziness Melatonin (Melatonin 3 Mg Tablet) 6 mg PO BEDTIME PRN PRN Reason: insomnia Metoprolol Succinate (Metoprolol Succinate Er 50 Mg Tab.Er.24h) 50 mg PO DAILY [facility]; Protocol Last Admin: 04/22/22 07:36 Dose: 50 mg Nystatin (Nystatin Powder 15 Gm Bottle) 1 appl TOPICAL BID [facility]; Protocol Last Admin: 04/22/22 15:36 Dose: Not Given Omeprazole (Omeprazole 20 Mg Capsule.Dr) 20 mg PO BEDTIME [facility] Last Admin: 04/21/22 20:35 Dose: 20 mg Ondansetron HCl (Ondansetron Hcl 4 Mg/2 Ml Vial) 4 mg IVPUSH Q8H PRN PRN Reason: Nausea and Vomiting Pharmacy Consult (Consult Rx Perform Med Rec) 1 each MISCELLANE ONCE PRN PRN Reason: Consult order Polyethylene Glycol (Polyethylene Glycol 3350 17 Gm Powd.Pack) 17 gm PO DAILY [facility] Last Admin: 04/22/22 07:37 Dose: 17 gm Pregabalin (Pregabalin 100 Mg Capsule) 100 mg PO BID [facility] Last Admin: 04/22/22 07:36 Dose: 100 mg Risperidone (Risperidone 1 Mg Tablet) 1 mg PO BID [facility] Last Admin: 04/22/22 07:36 Dose: 1 mg Sodium Chloride (0.9 % Sodium Chloride Flush 3 Ml Syringe) 3 ml IVFLUSH QSHIFT [facility] Last Admin: 04/22/22 14:47 Dose: 3 ml Tizanidine HCl (Tizanidine Hcl 4 Mg Tablet) 4 mg PO BEDTIME [facility] Last Admin: 04/21/22 20:35 Dose: 4 mg Vitamin D (Cholecalciferol (Vitamin D3) 25 Mcg Tablet) 25 mcg PO DAILY [facility] Last Admin: 04/22/22 07:37 Dose: 25 mcg Home Medications Medication Instructions Recorded Confirmed Last Taken Type albuterol sulfate 90 mcg/actuation 2 puff inhalation Q4H PRN Dyspnea 11/23/20 04/20/22 1 Day Ago History aerosol inhaler (ProAir HFA) ~03/31/21 aspirin 81 mg tablet,delayed 81 mg PO DAILY 11/23/20 04/20/22 04/19/22 History release fluoxetine 40 mg capsule 40 mg PO DAILY 11/23/20 04/20/22 04/19/22 History fluticasone propionate 110 2 puff inhalation BID 11/23/20 04/20/22 04/19/22 History mcg/actuation HFA aerosol inhaler (Flovent HFA) metoprolol succinate 50 mg 50 mg PO DAILY 11/23/20 04/20/22 04/19/22 History tablet,extended release 24 hr omeprazole 20 mg capsule,delayed 20 mg PO BEDTIME 11/23/20 04/20/22 04/19/22 History release simvastatin 20 mg tablet 20 mg PO BEDTIME 11/23/20 04/20/22 04/19/22 History isosorbide mononitrate 30 mg 30 mg PO DAILY 12/11/20 04/20/22 04/19/22 History tablet,extended release 24 hr tizanidine 4 mg tablet 4 mg PO BEDTIME 12/11/20 04/20/22 04/19/22 History gabapentin 400 mg capsule 400 mg PO BID@0900,1200 01/09/21 04/20/22 04/19/22 History amlodipine 10 mg tablet 1 tab PO DAILY 06/07/21 04/20/22 04/19/22 History bumetanide 2 mg tablet 1 tab PO DAILY 06/07/21 04/20/22 04/19/22 History cholecalciferol (vitamin D3) 25 1 cap PO DAILY 06/07/21 04/20/22 04/19/22 History mcg (1,000 unit) capsule gabapentin 400 mg capsule 800 mg PO BEDTIME 06/07/21 04/20/22 04/19/22 History insulin glargine 100 unit/mL 80 unit subcut BEDTIME 06/07/21 04/20/22 04/19/22 History subcutaneous solution (Lantus U-100 Insulin) meclizine 25 mg tablet 25 mg PO TID PRN Dizziness 06/07/21 04/20/22 Unknown History pregabalin 100 mg capsule 1 cap PO BID 06/08/21 04/20/22 04/19/22 History furosemide 20 mg tablet 1 tab PO DAILY 03/26/22 04/20/22 04/19/22 History haloperidol 2 mg tablet 1 tab PO BEDTIME PRN Agitation 03/26/22 04/20/22 Unknown History melatonin 3 mg tablet 2 tab PO BEDTIME PRN insomnia 04/20/22 04/20/22 Unknown History risperidone 1 mg tablet 1 tab PO BID 04/20/22 04/20/22 04/19/22 History Physical Exam Vital Signs and Narrative: Vital Signs: Last Vital Signs Temp 98.0 F 04/22/22 15:26 Pulse 80 04/22/22 15:26 Resp 18 04/22/22 15:26 BP 136/58 L 04/22/22 15:26 Pulse Ox 97 04/22/22 15:26 O2 Del Method 04/22/22 15:26 O2 Flow Rate 3 04/22/22 11:05 BMI result Body Mass Index 49.2 The patient has pretty good bed mobility. She is able to lie onto her right side and grab the bed rail without shortness of breath. Currently, her buttock ulcers are covered with a large Allevyn foam. It is peeled back to reveal large, involved, bilateral, unstageable ulcers. There likely from pressure. There may be a moisture component as well. A approx 3 cm x 2 cm area of necrotic tissue is seen on the left buttock about the medial aspect. This is surrounded by partial-thickness skin breakdown with buds of epithelial tissue poking through. There is no surrounding erythema. No warmth to touch. The ulcers convalesce to include the right buttock. There is no necrosis on the right buttock. In order to for proper staging of pressure ulcers to occur, the necrotic tissue needs to be removed to assess depth properly. See plan. Results Labs CBC and Chem 7: 04/20/22 06:09 04/22/22 05:49 Labs: Laboratory Results - last 24 hr 04/21/22 04/21/22 04/21/22 16:00 16:55 18:16 Anion Gap 19 Estim Creat Clear Calc 65.1 Estimated GFR 45 POC Glucose 270 H 259 H Random Glucose 313 H Calcium 8.3 L 04/21/22 04/22/22 04/22/22 19:53 05:49 07:17 Anion Gap 16 Estim Creat Clear Calc 71.5 Estimated GFR 50 POC Glucose 256 H 220 H Random Glucose 270 H Calcium 8.4 04/22/22 04/22/22 10:57 15:28 Anion Gap Estim Creat Clear Calc Estimated GFR POC Glucose 273 H 253 H Random Glucose Calcium Assessment and Plan (1) Decubitus ulcer: Status: Acute Plan 61-year-old female with multiple medical comorbidities of which obesity is playing a role with nonhealing wounds of the buttocks. She has impaired mobility at home and the source of the ulcers is pressure related prior to hospitalization. This may be confounded by moisture associated dermatitis. Consider surgical consultation for debridement of necrotic tissue on the left buttock. Consider physical therapy evaluation in the hospital to improve mobility. Silver alginate dressings cut to fit the open areas would better manage the moisture component of these wounds covered with gauze and Hypafix tape. Alevyn foam will further exacerbate moisture harboring and skin breakdown.
[2022-04-22 19:05] LABS: Glucose, Whole Blood 223 mg/dL (60-115)
[2022-04-22] MEDS: Omeprazole 20 MG CAPSULE.DR PO (19:36)
[2022-04-22] MEDS: Atorvastatin Calcium 10 MG TABLET PO (19:37)
[2022-04-22] MEDS: Insulin Glargine,Hum.rec.anlog 100 UNIT/ML 10 ML VIAL 50 UNIT SUBCUT (19:37)
[2022-04-22] MEDS: TiZANidine HCL 4 MG TABLET PO (19:37)
[2022-04-23] VITALS (8 sets, daily range): BP systolic 128–187; BP diastolic 57–75; PULSE 70–78; RESP 16–20; TEMP 36.4–36.9; O2SAT 92–98
[2022-04-23] MEDS: cloNIDine HCL 0.1 MG TABLET PO ×3 (02:40→19:39)
[2022-04-23] MEDS: Heparin Sodium,Porcine 5,000 UNIT/ML VIAL 5000 UNIT SUBCUT ×3 (05:28→21:17)
[2022-04-23] MEDS: cefTRIAXone sodium 1 GM in 0.9 % Sodium Chloride 50 ML IV (05:28)
[2022-04-23 07:51] LABS: Glucose, Whole Blood 131 mg/dL (60-115)
[2022-04-23] MEDS: 0.9 % Sodium Chloride Flush 3 ML SYRINGE IVFLUSH ×3 (09:06→21:13)
[2022-04-23] MEDS: FLUoxetine HCl 20 MG CAPSULE 40 MG PO (09:06)
[2022-04-23] MEDS: Gabapentin 400 MG CAPSULE PO ×2 (09:07→11:37)
[2022-04-23] MEDS: risperiDONE 1 MG TABLET PO ×2 (09:07→21:04)
[2022-04-23] MEDS: Aspirin Enteric Coated 81 MG TABLET.DR PO (09:07)
[2022-04-23] MEDS: Isosorbide Mononitrate 30 MG TAB.ER.24H PO (09:07)
[2022-04-23] MEDS: Cholecalciferol (Vitamin D3) 25 MCG TABLET PO (09:07)
[2022-04-23] MEDS: Pregabalin 100 MG CAPSULE PO ×2 (09:07→21:04)
[2022-04-23] MEDS: Metoprolol Succinate ER 50 MG TAB.ER.24H PO (09:07)
--- NOTE | 2022-04-23 10:02 | MHC.CLN ---
F/U DIET=DIABETIC 1800 KCALS-APPROPRIATE. SUPPLEMENT ENSURE MAX PROTEIN PROVIDES ADDITIONAL 300 KCALS, 60 G PROTEIN. STAGE II WOUND TO COCCYX. SUPPLEMENT TO PROMOTE WOUND HEALING. PO INTAKE 100%. MONITOR FOR INTAKE AND SKIN INTEGRITY.
[2022-04-23 11:20] LABS: Glucose, Whole Blood 157 mg/dL (60-115)
[2022-04-23] MEDS: Insulin Lispro 100 UNIT/ML 3 ML VIAL SUBCUT ×3 (11:37→21:04)
--- NOTE | 2022-04-23 14:36 | P.PNIM_ITS ---
Subjective Subjective Date of Service: 04/23/22 Interval History: f/u for abdominal pain, FELICIA Review of Systems Encouraged for p.o. intake, denies any chest pain or shortness of breath or fever chills Producing bm's Physical Exam Vital Signs: Vital Signs: Last Vital Signs Temp 97.5 F 04/23/22 11:09 Pulse 76 04/23/22 11:09 Resp 17 04/23/22 11:11 BP 149/60 H 04/23/22 11:09 Pulse Ox 98 04/23/22 11:09 O2 Del Method 04/23/22 11:09 O2 Flow Rate 3 04/23/22 11:09 BMI result Body Mass Index 49.2 General: AO X 3, no acute distress Resp:? CTA bilateral CVS: S1,S2,RRR GI: +BS, NT, no distention Skin: buttock wounds/pressure injury ( as per staff and patient present at admission) Neuro:? motor grossly intact Psych: appropriate affect Objective Data Active Medications Acetaminophen (Acetaminophen 325 Mg Tablet) 650 mg PO Q6H PRN PRN Reason: Pain, Mild (Pain Scale 1-3) Albuterol Sulfate (Albuterol Sulfate 90 Mcg 8 Gm Inhaler) 2 puff INHALE Q4H PRN PRN Reason: Dyspnea Albuterol/Ipratropium (Albuterol/Iprat 2.5/0.5mg 3 Ml Ampul.Neb) 3 ml INHALE RQ4H WHILE AWAKE PRN PRN Reason: Shortness Of Breath/Wheezing Aspirin (Aspirin Enteric Coated 81 Mg Tablet.) 81 mg PO DAILY [facility] Last Admin: 04/23/22 09:07 Dose: 81 mg Documented By: RAMONA Atorvastatin Calcium (Atorvastatin Calcium 10 Mg Tablet) 10 mg PO BEDTIME [facility] Last Admin: 04/22/22 19:37 Dose: 10 mg Documented By: TIFFANIE Clonidine HCl (Clonidine Hcl 0.1 Mg Tablet) 0.1 mg PO TID PRN; Protocol PRN Reason: hyperarousal, anxiety, panic Last Admin: 04/23/22 09:07 Dose: 0.1 mg Documented By: RAMONA Dextrose (Dextrose 50 % 25 Gm/50 Ml Syringe) 25 gm IVPUSH Q15M PRN; Protocol PRN Reason: per Hypoglycemia Standing Ord. Docusate Sodium (Docusate Sodium 100 Mg Capsule) 100 mg PO DAILY PRN PRN Reason: Constipation Fluoxetine HCl (Fluoxetine Hcl 20 Mg Capsule) 40 mg PO DAILY [facility] Last Admin: 04/23/22 09:06 Dose: 40 mg Documented By: RAMONA Fluticasone Propionate (Fluticasone Propionate 100 Mcg Blst.W.Dev) 1 puff IN [place] RBID [facility] Last Admin: 04/23/22 08:28 Dose: Not Given Documented By: CRISTY Non-Admin Reason: Patient Refused Gabapentin (Gabapentin 400 Mg Capsule) 400 mg PO BID@0900,1200 [facility] Last Admin: 04/23/22 11:37 Dose: 400 mg Documented By: HAZEL Glucose (Glucose Gel 15 Gm Gel..Gram.) 15 gm PO Q15M PRN; Protocol PRN Reason: per Hypoglycemia Standing Ord. Haloperidol (Haloperidol 1 Mg Tablet) 2 mg PO BEDTIME PRN PRN Reason: Agitation Last Admin: 04/22/22 03:22 Dose: 2 mg Documented By: JESSICA Heparin Sodium (Porcine) (Heparin Sodium,Porcine 5,000 Unit/Ml Vial) 5,000 unit SUBCUT Q8H [facility] Last Admin: 04/23/22 14:19 Dose: 5,000 unit Documented By: HAZEL Ceftriaxone Sodium 1 gm/ (Sodium Chloride) 50 mls @ 100 mls/hr IV Q24H [facility] Last Infusion: 04/23/22 06:01 Dose: 0 mls/hr Documented By: TIFFANIE Insulin Glargine (Insulin Glargine,Hum.Rec.Anlog 100 Unit/Ml 10 Ml Vial) 50 unit SUBCUT BEDTIME [facility] Last Admin: 04/22/22 19:37 Dose: 50 unit Documented By: TIFFANIE Insulin Human Lispro (Insulin Lispro 100 Unit/Ml 3 Ml Vial) 0 unit SUBCUT QIDACHS [facility]; Protocol Last Admin: 04/23/22 11:37 Dose: 2 unit Documented By: HAZEL Isosorbide Mononitrate (Isosorbide Mononitrate 30 Mg Tab.Er.24h) 30 mg PO DAILY [facility]; Protocol Last Admin: 04/23/22 09:07 Dose: 30 mg Documented By: RAMONA Meclizine HCl (Meclizine Hcl 25 Mg Tablet) 25 mg PO TID PRN PRN Reason: Dizziness Melatonin (Melatonin 3 Mg Tablet) 6 mg PO BEDTIME PRN PRN Reason: insomnia Metoprolol Succinate (Metoprolol Succinate Er 50 Mg Tab.Er.24h) 50 mg PO DAILY [facility]; Protocol Last Admin: 04/23/22 09:07 Dose: 50 mg Documented By: RAMONA Nystatin (Nystatin Powder 15 Gm Bottle) 1 appl TOPICAL BID [facility]; Protocol Last Admin: 04/23/22 09:11 Dose: Not Given Documented By: RAMONA Non-Admin Reason: Med Not Available Omeprazole (Omeprazole 20 Mg Capsule.Dr) 20 mg PO BEDTIME [facility] Last Admin: 04/22/22 19:36 Dose: 20 mg Documented By: TIFFANIE Ondansetron HCl (Ondansetron Hcl 4 Mg/2 Ml Vial) 4 mg IVPUSH Q8H PRN PRN Reason: Nausea and Vomiting Pharmacy Consult (Consult Rx Perform Med Rec) 1 each MISCELLANE ONCE PRN PRN Reason: Consult order Polyethylene Glycol (Polyethylene Glycol 3350 17 Gm Powd.Pack) 17 gm PO DAILY [facility] Last Admin: 04/23/22 09:08 Dose: Not Given Documented By: RAMONA Non-Admin Reason: diarrhea Pregabalin (Pregabalin 100 Mg Capsule) 100 mg PO BID [facility] Last Admin: 04/23/22 09:07 Dose: 100 mg Documented By: RAMONA Risperidone (Risperidone 1 Mg Tablet) 1 mg PO BID [facility] Last Admin: 04/23/22 09:07 Dose: 1 mg Documented By: RAMONA Sodium Chloride (0.9 % Sodium Chloride Flush 3 Ml Syringe) 3 ml IVFSH [facility] Last Admin: 04/23/22 09:06 Dose: 3 ml Documented By: RAMONA Tizanidine HCl (Tizanidine Hcl 4 Mg Tablet) 4 mg PO BEDTIME [facility] Last Admin: 04/22/22 19:37 Dose: 4 mg Documented By: TIFFANIE Vitamin D (Cholecalciferol (Vitamin D3) 25 Mcg Tablet) 25 mcg PO DAILY [facility] Last Admin: 04/23/22 09:07 Dose: 25 mcg Documented By: RAMONA Labs CBC & Chem 7: 04/20/22 06:09 04/22/22 05:49 Labs: Laboratory Results - last 24 hr 04/22/22 04/22/22 04/23/22 15:28 18:56 07:40 POC Glucose 253 H 223 H 131 H 04/23/22 11:07 POC Glucose 157 H Assessment and Plan (1) Decubitus ulcer: Status: Acute Plan 61-year-old female with extensive past medical history that includes DANIEL, o besity hypoventilation syndrome, asthma COPD, as well as CHF with reduced ejection fraction who presents to the hospital with complaints of abdominal pain found to have stercoral colitis # ?abdominal pain -? secondary to severe constipation as well as fecal ball as well as sterile Coral colitis -? CT abdomen as above -? patient did move her bowels in the ED with the expulsion of the fecal ball -? will start her on? bowel regimen, with MiraLax daily, as well as docusate b.i.d. -? monitor for resolution of constipation #? FELICIA -? likely prerenal secondary to dehydration-improving , -? patient does not appear in volume overload, she is laying flat in bed with no orthopnea or PND, no lower extremity edema.? She has hypoxia at baseline with baseline oxygen requirement but denies any dyspnea at this time. -? monitor respiratory status given her underlying CHF ? may need off iv hydration , encouraged for po hydration -? follow BMP closely #? DANIEL/ OHS -? patient noncompliant with CPAP at home -? no CO2 retention at this time -? continue CPAP at bedtime #? chronic respiratory failure with hypoxia -? continue oxygen supplement as needed, keep O2 saturation between 88-92% given her underlying COPD # ? nonischemic cardiomyopathy/ CHF with reduced ejection fraction -? not in exacerbation at this time -? no orthopnea, no PND, no dyspnea, no lower extremity edema, BNP not significantly elevated -? no evidence of? fluids in lungs per chest CT -? at this time will hold diuretics given FELICIA - ? resume once kidney function improves -? monitor respiratory and volume status,? resume diuretics sooner if indicated #? diabetes -? low-dose sliding scale insulin -? continue home insulin -? diabetic diet #? hypertension -? stable -? continue home antihypertensives b/l buttock wounds /pressures :nutrition/frequent turiing ,oob seen by wound care -recomended surgery eval for buttock wounds /pressure injury. morbid obesity:? Strongly encouraged to lose weight. ?DVT prophylaxis:? Heparin subQ ? inaptient need :felicia ,b/l buttock wounds /pressures-surgery eval eval/managment Quality Stroke Does the patient have a stroke diagnosis?: No VTE Prior VTE?: No VTE Risk Level:: Medical - moderate - high VTE Device Contraindication: Treatment Not Indicated VTE Drug Contraindication: N/A - Med Ordered
[2022-04-23 15:34] LABS: Glucose, Whole Blood 216 mg/dL (60-115)
--- NOTE | 2022-04-23 18:18 | PM.CNGS ---
History of Present Illness Consult details Consult date: 04/23/22 Narrative: 61-year-old female for buttock ulcers. She has multiple medical problems including CHF, diabetes, and has very limited mobility. She has therefore developed pressure ulcers on her buttocks. She has uncertain as to how long she has had this. She was seen by the wound management nurse he was noted to have a necrotic eschar and have been consulted to debridement to stage the ulcer. She describes pain on the area of the ulcer. She admits to having very limited mobility and says that she stays in bed or on a chair most of the time. Review of Systems Constitutional: Constitutional: Denies chills and Denies fever(s) Cardiovascular: Cardiovascular: Denies chest pain at rest and Reports dyspnea on exertion Respiratory: Respiratory: Denies cough and Reports dyspnea on exertion Gastrointestinal: Gastrointestinal: Denies abdominal pain Genitourinary: Genitourinary: Denies hematuria Musculoskeletal: Musculoskeletal: Reports abnormal gait Neurologic: Reports abnormal gait [facility] Past Medical History Medical History Acute on chronic combined systolic and diastolic CHF (congestive heart failure) Adjustment disorder with mixed anxiety and depressed mood Asthma Asthma Cellulitis of right lower extremity Chronic pain CKD (chronic kidney disease) stage 3, GFR 30-59 ml/min Congestive heart failure COPD (chronic obstructive pulmonary disease) Depression Diabetes Diabetic neuropathy, painful High cholesterol Hypertension MDD (major depressive disorder), recurrent episode, moderate Morbid obesity NICM (nonischemic cardiomyopathy) Obesity hypoventilation syndrome DANIEL (obstructive sleep apnea) Panic disorder Stasis dermatitis of both legs Family History Family History Mother HTN (hypertension) Diabetes CAD (coronary artery disease) Father HTN (hypertension) Diabetes CAD (coronary artery disease) Maternal Grandmother CAD (coronary artery disease) Surgical History Surgical History Hx of cholecystectomy Social History Social History Household Members: Unknown / Unable to assess Household Members Other:: GRANDSON Housing: House Housing Other:: with gel coater Do you presently have visiting nurse or other home services: Yes (Aidan) Alcohol intake: never Patient Tobacco Use Status: Former Tobacco user Quit Date: 1999 Tobacco use type: Cigarette Years Smoked: 38 Second Hand Smoke Exposure: No Substance Use Type: Marijuana Advance Directives Date on File: 12/19/20 service: No Current occupational status: disabled Meds Allergies Allergy/AdvReac Type Severity Reaction Status Date / Time ibuprofen Allergy Intermediate vommiting, Verified 04/04/22 10:51 itching acetaminophen [Tylenol] Allergy Mild Unknown Verified 04/05/22 05:56 morphine AdvReac Intermediate vomiting Verified 04/04/22 10:51 Active Medications: Current Medications Acetaminophen (Acetaminophen 325 Mg Tablet) 650 mg PO Q6H PRN PRN Reason: Pain, Mild (Pain Scale 1-3) Albuterol Sulfate (Albuterol Sulfate 90 Mcg 8 Gm Inhaler) 2 puff INHALE Q4H PRN PRN Reason: Dyspnea Albuterol/Ipratropium (Albuterol/Iprat 2.5/0.5mg 3 Ml Ampul.Neb) 3 ml INHALE RQ4H WHILE AWAKE PRN PRN Reason: Shortness Of Breath/Wheezing Aspirin (Aspirin Enteric Coated 81 Mg Tablet.Dr) 81 mg PO DAILY [facility] Last Admin: 04/23/22 09:07 Dose: 81 mg Atorvastatin Calcium (Atorvastatin Calcium 10 Mg Tablet) 10 mg PO BEDTIME [facility] Last Admin: 04/22/22 19:37 Dose: 10 mg Clonidine HCl (Clonidine Hcl 0.1 Mg Tablet) 0.1 mg PO TID PRN; Protocol PRN Reason: hyperarousal, anxiety, panic Last Admin: 04/23/22 09:07 Dose: 0.1 mg Dextrose (Dextrose 50 % 25 Gm/50 Ml Syringe) 25 gm IVPUSH Q15M PRN; Protocol PRN Reason: per Hypoglycemia Standing Ord. Docusate Sodium (Docusate Sodium 100 Mg Capsule) 100 mg PO DAILY PRN PRN Reason: Constipation Fluoxetine HCl (Fluoxetine Hcl 20 Mg Capsule) 40 mg PO DAILY [facility] Last Admin: 04/23/22 09:06 Dose: 40 mg Fluticasone Propionate (Fluticasone Propionate 100 Mcg Blst.W.Dev) 1 puff INHALE RBID [facility] Last Admin: 04/23/22 08:28 Dose: Not Given Gabapentin (Gabapentin 400 Mg Capsule) 400 mg PO BID@0900,1200 [facility] Last Admin: 04/23/22 11:37 Dose: 400 mg Glucose (Glucose Gel 15 Gm Gel..Gram.) 15 gm PO Q15M PRN; Protocol PRN Reason: per Hypoglycemia Standing Ord. Haloperidol (Haloperidol 1 Mg Tablet) 2 mg PO BEDTIME PRN PRN Reason: Agitation Last Admin: 04/22/22 03:22 Dose: 2 mg Heparin Sodium (Porcine) (Heparin Sodium,Porcine 5,000 Unit/Ml Vial) 5,000 unit SUBCUT Q8H [facility] Last Admin: 04/23/22 14:19 Dose: 5,000 unit Ceftriaxone Sodium 1 gm/ (Sodium Chloride) 50 mls @ 100 mls/hr IV Q24H [facility] Last Infusion: 04/23/22 06:01 Dose: Infused Insulin Glargine (Insulin Glargine,Hum.Rec.Anlog 100 Unit/Ml 10 Ml Vial) 50 unit SUBCUT BEDTIME [facility] Last Admin: 04/22/22 19:37 Dose: 50 unit Insulin Human Lispro (Insulin Lispro 100 Unit/Ml 3 Ml Vial) 0 unit SUBCUT QIDACHS [facility]; Protocol Last Admin: 04/23/22 15:40 Dose: 4 unit Isosorbide Mononitrate (Isosorbide Mononitrate 30 Mg Tab.Er.24h) 30 mg PO DAILY [facility]; Protocol Last Admin: 04/23/22 09:07 Dose: 30 mg Meclizine HCl (Meclizine Hcl 25 Mg Tablet) 25 mg PO TID PRN PRN Reason: Dizziness Melatonin (Melatonin 3 Mg Tablet) 6 mg PO BEDTIME PRN PRN Reason: insomnia Metoprolol Succinate (Metoprolol Succinate Er 50 Mg Tab.Er.24h) 50 mg PO DAILY [facility]; Protocol Last Admin: 04/23/22 09:07 Dose: 50 mg Nystatin (Nystatin Powder 15 Gm Bottle) 1 appl TOPICAL BID [facility]; Protocol Last Admin: 04/23/22 09:11 Dose: Not Given Omeprazole (Omeprazole 20 Mg Capsule.Dr) 20 mg PO BEDTIME [facility] Last Admin: 04/22/22 19:36 Dose: 20 mg Ondansetron HCl (Ondansetron Hcl 4 Mg/2 Ml Vial) 4 mg IVPUSH Q8H PRN PRN Reason: Nausea and Vomiting Pharmacy Consult (Consult Rx Perform Med Rec) 1 each MISCELLANE ONCE PRN PRN Reason: Consult order Polyethylene Glycol (Polyethylene Glycol 3350 17 Gm Powd.Pack) 17 gm PO DAILY [facility] Last Admin: 04/23/22 09:08 Dose: Not Given Pregabalin (Pregabalin 100 Mg Capsule) 100 mg PO BID [facility] Last Admin: 04/23/22 09:07 Dose: 100 mg Risperidone (Risperidone 1 Mg Tablet) 1 mg PO BID [facility] Last Admin: 04/23/22 09:07 Dose: 1 mg Sodium Chloride (0.9 % Sodium Chloride Flush 3 Ml Syringe) 3 ml IVFLUSH QSHIFT [facility] Last Admin: 04/23/22 15:41 Dose: 3 ml Tizanidine HCl (Tizanidine Hcl 4 Mg Tablet) 4 mg PO BEDTIME [facility] Last Admin: 04/22/22 19:37 Dose: 4 mg Vitamin D (Cholecalciferol (Vitamin D3) 25 Mcg Tablet) 25 mcg PO DAILY [facility] Last Admin: 04/23/22 09:07 Dose: 25 mcg Home Medications Medication Instructions Recorded Confirmed Last Taken Type albuterol sulfate 90 mcg/actuation 2 puff inhalation Q4H PRN Dyspnea 11/23/20 04/20/22 1 Day Ago History aerosol inhaler (ProAir HFA) ~03/31/21 aspirin 81 mg tablet,delayed 81 mg PO DAILY 11/23/20 04/20/22 04/19/22 History release fluoxetine 40 mg capsule 40 mg PO DAILY 11/23/20 04/20/22 04/19/22 History fluticasone propionate 110 2 puff inhalation BID 11/23/20 04/20/22 04/19/22 History mcg/actuation HFA aerosol inhaler (Flovent HFA) metoprolol succinate 50 mg 50 mg PO DAILY 11/23/20 04/20/22 04/19/22 History tablet,extended release 24 hr omeprazole 20 mg capsule,delayed 20 mg PO BEDTIME 11/23/20 04/20/22 04/19/22 History release simvastatin 20 mg tablet 20 mg PO BEDTIME 11/23/20 04/20/22 04/19/22 History isosorbide mononitrate 30 mg 30 mg PO DAILY 12/11/20 04/20/22 04/19/22 History tablet,extended release 24 hr tizanidine 4 mg tablet 4 mg PO BEDTIME 12/11/20 04/20/22 04/19/22 History gabapentin 400 mg capsule 400 mg PO BID@0900,1200 01/09/21 04/20/22 04/19/22 History amlodipine 10 mg tablet 1 tab PO DAILY 06/07/21 04/20/22 04/19/22 History bumetanide 2 mg tablet 1 tab PO DAILY 06/07/21 04/20/22 04/19/22 History cholecalciferol (vitamin D3) 25 1 cap PO DAILY 06/07/21 04/20/22 04/19/22 History mcg (1,000 unit) capsule gabapentin 400 mg capsule 800 mg PO BEDTIME 06/07/21 04/20/22 04/19/22 History insulin glargine 100 unit/mL 80 unit subcut BEDTIME 06/07/21 04/20/22 04/19/22 History subcutaneous solution (Lantus U-100 Insulin) meclizine 25 mg tablet 25 mg PO TID PRN Dizziness 06/07/21 04/20/22 Unknown History pregabalin 100 mg capsule 1 cap PO BID 06/08/21 04/20/22 04/19/22 History furosemide 20 mg tablet 1 tab PO DAILY 03/26/22 04/20/22 04/19/22 History haloperidol 2 mg tablet 1 tab PO BEDTIME PRN Agitation 03/26/22 04/20/22 Unknown History melatonin 3 mg tablet 2 tab PO BEDTIME PRN insomnia 04/20/22 04/20/22 Unknown History risperidone 1 mg tablet 1 tab PO BID 04/20/22 04/20/22 04/19/22 History Physical Exam Vital Signs: Vital Signs: Last Vital Signs Temp 98.0 F 04/23/22 15:11 Pulse 71 04/23/22 15:11 Resp 18 04/23/22 15:11 BP 146/65 H 04/23/22 15:11 Pulse Ox 98 04/23/22 15:11 O2 Del Method 04/23/22 15:11 O2 Flow Rate 3.0 04/23/22 15:11 BMI result Body Mass Index 49.2 Const: Other: morbidly obese General: comfortable and no acute distress Resp: Effort & Inspection: normal respiratory effort Cardio: Rate: regular rate GI: Other: soft, nontender Back/Spine/Pelvis: Other: pressure ulcer on the buttocks with what appears to be a dry eschar about 2 x 3 cm on the right side, some had cellulitic surrounding skin Results Labs Result diagrams: 04/20/22 06:09 04/22/22 05:49 Labs: Abnormal lab results 04/22/22 04/23/22 04/23/22 Range/Units 18:56 07:40 11:07 POC Glucose 223 H 131 H 157 H (60-115) mg/dL 04/23/22 Range/Units 15:10 POC Glucose 216 H (60-115) mg/dL Urine 04/20/22 Range/Units 03:50 Urine Color Yellow Urine Appearance Clear Urine pH 5.0 (5.0-9.0) Ur Specific [place] 1.010 (1.005-1.025) Urine Protein Negative (Neg-Trace) mg/dL Urine Glucose (UA) Negative (Negative) mg/dL All other labs normal. Assessment and Plan (1) Decubitus ulcer: Status: Acute She has pressure ulcers on the buttocks as described above. The wound management nurse had recommended debridement. The patient has severe pain touched on the area so it would be best to do this excisional debridement in the OR under anesthesia. I explained to her the technique of this procedure. I reviewed the risks including but not limited to bleeding, infections, inherent risks of anesthesia, as well as the benefits and alternatives. She understands and agrees to proceed. We will schedule her for debridement in the OR tomorrow. She should be kept NPO midnight. Procedures Date of Service Date of Service: 04/25/22
[2022-04-23 20:02] LABS: Glucose, Whole Blood 214 mg/dL (60-115)
[2022-04-23] MEDS: Omeprazole 20 MG CAPSULE.DR PO (21:02)
[2022-04-23] MEDS: TiZANidine HCL 4 MG TABLET PO (21:02)
[2022-04-23] MEDS: Fluticasone Propionate 100 MCG BLST.W.DEV 1 PUFF INHALE (21:03)
[2022-04-23] MEDS: Insulin Glargine,Hum.rec.anlog 100 UNIT/ML 10 ML VIAL 50 UNIT SUBCUT (21:04)
[2022-04-23] MEDS: Atorvastatin Calcium 10 MG TABLET PO (21:04)
[2022-04-24] VITALS (9 sets, daily range): BP systolic 92–176; BP diastolic 45–78; PULSE 73–89; RESP 16–20; TEMP 36.4–37.7; O2SAT 94–99
[2022-04-24] MEDS: cloNIDine HCL 0.1 MG TABLET PO ×2 (05:14→15:22)
[2022-04-24] MEDS: Heparin Sodium,Porcine 5,000 UNIT/ML VIAL 5000 UNIT SUBCUT ×3 (06:06→21:41)
[2022-04-24] MEDS: cefTRIAXone sodium 1 GM in 0.9 % Sodium Chloride 50 ML IV (06:07)
[2022-04-24 07:57] LABS: Glucose, Whole Blood 144 mg/dL (60-115)
[2022-04-24] MEDS: Cholecalciferol (Vitamin D3) 25 MCG TABLET PO (08:26)
[2022-04-24] MEDS: Isosorbide Mononitrate 30 MG TAB.ER.24H PO (08:26)
[2022-04-24] MEDS: Aspirin Enteric Coated 81 MG TABLET.DR PO (08:26)
[2022-04-24] MEDS: risperiDONE 1 MG TABLET PO ×2 (08:27→21:41)
[2022-04-24] MEDS: Gabapentin 400 MG CAPSULE PO ×2 (08:27→13:07)
[2022-04-24] MEDS: Metoprolol Succinate ER 50 MG TAB.ER.24H PO (08:27)
[2022-04-24] MEDS: FLUoxetine HCl 20 MG CAPSULE 40 MG PO (08:27)
[2022-04-24] MEDS: 0.9 % Sodium Chloride Flush 3 ML SYRINGE IVFLUSH ×3 (08:28→21:52)
[2022-04-24] MEDS: Pregabalin 100 MG CAPSULE PO ×2 (08:28→21:40)
[2022-04-24] MEDS: Fluticasone Propionate 100 MCG BLST.W.DEV 1 PUFF INHALE ×2 (08:40→08:45)
[2022-04-24] MEDS: Lactated Ringers 1,000 ML 80 ML IVCONT ×2 (09:17→21:52)
[2022-04-24 10:57] LABS: Glucose, Whole Blood 130 mg/dL (60-115)
--- NOTE | 2022-04-24 12:08 | W.PM.OPN ---
Operative Note Operative Note Date of Service: 04/24/22 Narrative: Preop diagnosis: Buttock ulcer with eschar Postop diagnosis: Buttock ulcer with eschar Procedure: Excisional debridement of buttock ulcer with eschar Surgeon: Tavo Seo MD The patient is a 61-year-old female with multiple medical problems, and poor mobility, with developed buttock ulcer. This was mostly a stage 1 ulcer but there was a 3 x 2 cm thick eschar left side. The entire ulcer actually involved both buttocks with an area encompassing about 8 x 7 cm. With note of erythematous and fibrinous coating throughout. She understood the technique of excision excisional debridement of the ulcer. She was aware of the risks, benefits, and alternatives. She was brought to the operating room. She was placed in right lateral decubitus position under monitored anesthesia care. The buttock area in the sacrococcygeal area whether prepped and draped in usual sterile fashion. A surgical time-out was done. The patient received cefazolin 2 g IV preoperatively I infiltrated the area surrounding this ulcer with lidocaine 1%. There was note of a thick 3 x 2 cm eschar. This was sharply excised using Barkley scissors. The full-thickness of skin and part of the case layer was excised. I had to use electrocautery to achieve hemostasis on the subcutaneous layer. I then used the curette to debride the superficial coating of the rest of the ulcer throughout until I will so some healthy bleeding. I then applied wet to dry dressings and the entire ulcer. we covered this entire area with ABD pads I infiltrated the area with Marcaine 0.5% for postop analgesia. The procedure was then completed. The patient tolerated procedure well. There were no immediate complications. Estimated blood loss about 20 cc The patient was transferred to the recovery room with stable vital signs.
--- NOTE | 2022-04-24 12:30 | P.PNIM_ITS ---
Subjective Subjective Date of Service: 04/24/22 Interval History: f/u for abdominal pain, FELICIA Review of Systems Encouraged for p.o. intake, denies any chest pain or shortness of breath or fever or chills producing bm's Physical Exam Vital Signs: Vital Signs: Last Vital Signs Temp 98.2 F 04/24/22 12:30 Pulse 76 04/24/22 12:30 Resp 20 04/24/22 12:30 BP 125/45 L 04/24/22 12:30 Pulse Ox 94 04/24/22 12:30 O2 Del Method 04/24/22 12:30 O2 Flow Rate 2 04/24/22 12:30 BMI result Body Mass Index 49.2 ?General: AO X 3, no acute distress Resp:? CTA bilateral CVS: S1,S2,RRR GI: +BS, NT, no distention Skin: buttock wounds/pressure injury ( as per staff and patient present at admission) Neuro:? motor grossly intact Psych: appropriate affect Objective Data Active Medications Acetaminophen (Acetaminophen 325 Mg Tablet) 650 mg PO Q6H PRN PRN Reason: Pain, Mild (Pain Scale 1-3) Albuterol Sulfate (Albuterol Sulfate 90 Mcg 8 Gm Inhaler) 2 puff INHALE Q4H PRN PRN Reason: Dyspnea Albuterol/Ipratropium (Albuterol/Iprat 2.5/0.5mg 3 Ml Ampul.Neb) 3 ml INHALE RQ4H WHILE AWAKE PRN PRN Reason: Shortness Of Breath/Wheezing Aspirin (Aspirin Enteric Coated 81 Mg Tablet.) 81 mg PO DAILY [facility] Last Admin: 04/24/22 08:26 Dose: 81 mg Documented By: BAKARI Atorvastatin Calcium (Atorvastatin Calcium 10 Mg Tablet) 10 mg PO BEDTIME [facility] Last Admin: 04/23/22 21:04 Dose: 10 mg Documented By: MOOKIE Clonidine HCl (Clonidine Hcl 0.1 Mg Tablet) 0.1 mg PO TID PRN; Protocol PRN Reason: hyperarousal, anxiety, panic Last Admin: 04/24/22 05:14 Dose: 0.1 mg Documented By: MOOKIE Dextrose (Dextrose 50 % 25 Gm/50 Ml Syringe) 25 gm IVPUSH Q15M PRN; Protocol PRN Reason: per Hypoglycemia Standing Ord. Docusate Sodium (Docusate Sodium 100 Mg Capsule) 100 mg PO DAILY PRN PRN Reason: Constipation Fluoxetine HCl (Fluoxetine Hcl 20 Mg Capsule) 40 mg PO DAILY [facility] Last Admin: 04/24/22 08:27 Dose: 40 mg Documented By: BAKARI Fluticasone Propionate (Fluticasone Propionate 100 Mcg Blst.W.Dev) 1 puff INHALE RBID [facility] Last Admin: 04/24/22 08:45 Dose: 1 puff Documented By: OLIVIA Gabapentin (Gabapentin 400 Mg Capsule) 400 mg PO BID@0900,1200 [facility] Last Admin: 04/24/22 08:27 Dose: 400 mg Documented By: BAKARI Glucose (Glucose Gel 15 Gm Gel..Gram.) 15 gm PO Q15M PRN; Protocol PRN Reason: per Hypoglycemia Standing Ord. Haloperidol (Haloperidol 1 Mg Tablet) 2 mg PO BEDTIME PRN PRN Reason: Agitation Last Admin: 04/22/22 03:22 Dose: 2 mg Documented By: JESSICA Heparin Sodium (Porcine) (Heparin Sodium,Porcine 5,000 Unit/Ml Vial) 5,000 unit SUBCUT Q8H [facility] Last Admin: 04/24/22 06:06 Dose: 5,000 unit Documented By: MOOKIE Ceftriaxone Sodium 1 gm/ (Sodium Chloride) 50 mls @ 100 mls/hr IV Q24H [facility] Last Infusion: 04/24/22 06:43 Dose: 0 mls/hr Documented By: MOOKIE Lactated Ringer's (Lr) 1,000 mls @ 80 mls/hr IVCONT .[id number] [facility] Last Admin: 04/24/22 09:17 Dose: 80 mls/hr Documented By: BAKARI Insulin Glargine (Insulin Glargine,Hum.Rec.Anlog 100 Unit/Ml 10 Ml Vial) 50 unit SUBCUT BEDTIME [facility] Last Admin: 04/23/22 21:04 Dose: 50 unit Documented By: MOOKIE Insulin Human Lispro (Insulin Lispro 100 Unit/Ml 3 Ml Vial) 0 unit SUBCUT QIDACHS [facility]; Protocol Last Admin: 04/23/22 21:04 Dose: 4 unit Documented By: MOOKIE Isosorbide Mononitrate (Isosorbide Mononitrate 30 Mg Tab.Er.24h) 30 mg PO DAILY [facility]; Protocol Last Admin: 04/24/22 08:26 Dose: 30 mg Documented By: BAKARI Meclizine HCl (Meclizine Hcl 25 Mg Tablet) 25 mg PO TID PRN PRN Reason: Dizziness Melatonin (Melatonin 3 Mg Tablet) 6 mg PO BEDTIME PRN PRN Reason: insomnia Metoprolol Succinate (Metoprolol Succinate Er 50 Mg Tab.Er.24h) 50 mg PO DAILY [facility]; Protocol Last Admin: 04/24/22 08:27 Dose: 50 mg Documented By: BAKARI Nystatin (Nystatin Powder 15 Gm Bottle) 1 appl TOPICAL BID [facility]; Protocol Last Admin: 04/24/22 09:17 Dose: Not Given Documented By: BAKARI Non-Admin Reason: Med Not Available Omeprazole (Omeprazole 20 Mg Capsule.Dr) 20 mg PO BEDTIME [facility] Last Admin: 04/23/22 21:02 Dose: 20 mg Documented By: MOOKIE Ondansetron HCl (Ondansetron Hcl 4 Mg/2 Ml Vial) 4 mg IVPUSH Q8H PRN PRN Reason: Nausea and Vomiting Pharmacy Consult (Consult Rx Perform Med Rec) 1 each MISCELLANE ONCE PRN PRN Reason: Consult order Polyethylene Glycol (Polyethylene Glycol 3350 17 Gm Powd.Pack) 17 gm PO DAILY [facility] Last Admin: 04/24/22 08:28 Dose: Not Given Documented By: BAKARI Non-Admin Reason: NPO Pregabalin (Pregabalin 100 Mg Capsule) 100 mg PO BID [facility] Last Admin: 04/24/22 08:28 Dose: 100 mg Documented By: BAKARI Risperidone (Risperidone 1 Mg Tablet) 1 mg PO BID [facility] Last Admin: 04/24/22 08:27 Dose: 1 mg Documented By: BAKARI Sodium Chloride (0.9 % Sodium Chloride Flush 3 Ml Syringe) 3 ml IVFLUSH QSHIFT [facility] Last Admin: 04/24/22 08:28 Dose: 3 ml Documented By: BAKARI Tizanidine HCl (Tizanidine Hcl 4 Mg Tablet) 4 mg PO BEDTIME [facility] Last Admin: 04/23/22 21:02 Dose: 4 mg Documented By: MOOKIE Vitamin D (Cholecalciferol (Vitamin D3) 25 Mcg Tablet) 25 mcg PO DAILY [facility] Last Admin: 04/24/22 08:26 Dose: 25 mcg Documented By: BAKARI Labs CBC & Chem 7: 04/20/22 06:09 04/22/22 05:49 Labs: Laboratory Results - last 24 hr 04/23/22 04/23/22 04/24/22 15:10 19:25 07:45 POC Glucose 216 H 214 H 144 H 04/24/22 10:52 POC Glucose 130 H Assessment and Plan (1) Abdominal pain: Status: Acute (2) Constipation: Status: Acute (3) Decubitus ulcer: Status: Acute Plan 61-year-old female with extensive past medical history that includes DANIEL, obesity hypoventilation syndrome, asthma COPD, as well as CHF with reduced ejection fraction who presents to the hospital with complaints of abdominal pain found to have stercoral colitis # ?abdominal pain -? secondary to severe constipation as well as fecal ball as well as sterile Coral colitis -? CT abdomen as above -? patient did move her bowels in the ED with the expulsion of the fecal ball -? will start her on? bowel regimen, with MiraLax daily, as well as docusate b.i.d. -? monitor for resolution of constipation #? FELICIA -? likely prerenal secondary to dehydration-improving , -? patient does not appear in volume overload, she is laying flat in bed with no orthopnea or PND, no lower extremity edema.? She has hypoxia at baseline with baseline oxygen requirement but denies any dyspnea at this time. -? monitor respiratory status given her underlying CHF ? may need off iv hydration , encouraged for po hydration -? follow BMP closely #? DANIEL/ OHS -? patient noncompliant with CPAP at home -? no CO2 retention at this time -? continue CPAP at bedtime #? chronic respiratory failure with hypoxia -? continue oxygen supplement as needed, keep O2 saturation between 88-92% given her underlying COPD # ? nonischemic cardiomyopathy/ CHF with reduced ejection fraction -? not in exacerbation at this time -? no orthopnea, no PND, no dyspnea, no lower extremity edema, BNP not significantly elevated -? no evidence of? fluids in lungs per chest CT -? at this time will hold diuretics given FELICIA - ? resume once kidney function improves -? monitor respiratory and volume status,? resume diuretics sooner if indicated #? diabetes -? low-dose sliding scale insulin -? continue home insulin -? diabetic diet #? hypertension -? stable -? continue home antihypertensives b/l buttock wounds /pressures :nutrition/frequent turiing ,oob seen by wound care -recomended surgery eval for buttock wounds /pressure injury. morbid obesity:? Strongly encouraged to lose weight. ?DVT prophylaxis:? Heparin subQ ? inaptient need :felicia ,b/l buttock wounds /pressures-surgery eval eval/managment Quality Stroke Does the patient have a stroke diagnosis?: No VTE Prior VTE?: No VTE Risk Level:: Medical - moderate - high VTE Device Contraindication: Treatment Not Indicated VTE Drug Contraindication: N/A - Med Ordered
--- NOTE | 2022-04-24 13:04 | MHC.CM.PN ---
EMR REVIEWED, PT OFF TO OR FOR BUTTOCK WOUND DEBRIDEMENT, CM MET W/PT PRIOR TO LEAVING UNIT AND SHE REPORTS SHE DOES WANT TO ATTEMPT TO RETURN HOME AGAIN WHEN READY FOR D/C, PT HAS [employer], [employer] AND MULTIPLE FAMILY MEMBERS WHO CAN ASSIST. CM WILL CONT TO FOLLOW D/C NEEDS.
[2022-04-24] MEDS: oxyCODONE HCl Immed Release 5 MG TABLET PO (15:22)
[2022-04-24 15:59] LABS: Glucose, Whole Blood 254 mg/dL (60-115)
[2022-04-24] MEDS: Insulin Lispro 100 UNIT/ML 3 ML VIAL SUBCUT ×2 (16:31→21:42)
[2022-04-24] MEDS: Morphine Sulfate 4 MG/ML CARTRIDGE 3 MG IVPUSH ×2 (17:40→22:24)
[2022-04-24 20:36] LABS: Glucose, Whole Blood 316 mg/dL (60-115)
[2022-04-24] MEDS: TiZANidine HCL 4 MG TABLET PO (21:40)
[2022-04-24] MEDS: Atorvastatin Calcium 10 MG TABLET PO (21:40)
[2022-04-24] MEDS: Omeprazole 20 MG CAPSULE.DR PO (21:40)
[2022-04-24] MEDS: Insulin Glargine,Hum.rec.anlog 100 UNIT/ML 10 ML VIAL 50 UNIT SUBCUT (21:42)
[2022-04-25] VITALS (8 sets, daily range): BP systolic 123–186; BP diastolic 60–80; PULSE 66–73; RESP 16–18; TEMP 36.1–36.6; O2SAT 94–97
[2022-04-25] MEDS: cloNIDine HCL 0.1 MG TABLET PO ×2 (04:28→15:06)
[2022-04-25] MEDS: cefTRIAXone sodium 1 GM in 0.9 % Sodium Chloride 50 ML IV (06:26)
[2022-04-25] MEDS: Heparin Sodium,Porcine 5,000 UNIT/ML VIAL 5000 UNIT SUBCUT ×3 (06:26→20:30)
[2022-04-25] MEDS: Fluticasone Propionate 100 MCG BLST.W.DEV 1 PUFF INHALE ×2 (07:42→21:13)
[2022-04-25] MEDS: Insulin Lispro 100 UNIT/ML 3 ML VIAL SUBCUT ×4 (07:57→20:36)
[2022-04-25] MEDS: Aspirin Enteric Coated 81 MG TABLET.DR PO (07:58)
[2022-04-25] MEDS: Isosorbide Mononitrate 30 MG TAB.ER.24H PO (07:58)
[2022-04-25] MEDS: Metoprolol Succinate ER 50 MG TAB.ER.24H PO (07:58)
[2022-04-25] MEDS: Cholecalciferol (Vitamin D3) 25 MCG TABLET PO (07:58)
[2022-04-25] MEDS: Pregabalin 100 MG CAPSULE PO ×2 (07:58→20:30)
[2022-04-25] MEDS: polyethylene glycoL 3350 17 GM POWD.PACK PO (07:58)
[2022-04-25] MEDS: Gabapentin 400 MG CAPSULE PO ×2 (07:59→12:06)
[2022-04-25] MEDS: risperiDONE 1 MG TABLET PO ×2 (07:59→20:30)
[2022-04-25] MEDS: FLUoxetine HCl 20 MG CAPSULE 40 MG PO (07:59)
[2022-04-25 08:10] LABS: Glucose, Whole Blood 188 mg/dL (60-115)
[2022-04-25] MEDS: Morphine Sulfate 4 MG/ML CARTRIDGE 3 MG IVPUSH (09:02)
--- NOTE | 2022-04-25 11:18 | MHC.CLN ---
F/U DIET=DIABETIC 1800 KCALS-APPROPRIATE. SUPPLEMENT ENSURE MAX PROTEIN PROVIDES ADDITIONAL 300 KCALS, 60 G PROTEIN. STAGE II WOUND TO COCCYX. SUPPLEMENT TO PROMOTE WOUND HEALING. WOUND DEBRIDEMENT 04/24. PO INTAKE APPEARS EXCELLENT, USUALLY 100%. MONITOR FOR INTAKE AND SKIN INTEGRITY.
--- NOTE | 2022-04-25 11:41 | P.PNIM_ITS ---
Subjective Subjective Date of Service: 04/25/22 Interval History: f/u for abdominal pain, FELICIA Review of Systems Encouraged for p.o. intake, denies any chest pain or shortness of breath or fever or? chills producing bm's Physical Exam Vital Signs: Vital Signs: Last Vital Signs Temp 97.6 F 04/25/22 07:48 Pulse 73 04/25/22 07:48 Resp 18 04/25/22 07:48 BP 132/65 04/25/22 07:48 Pulse Ox 94 04/25/22 07:48 O2 Del Method 04/25/22 07:48 O2 Flow Rate 3 04/25/22 07:48 BMI result Body Mass Index 49.2 General: AO X 3, no acute distress Resp:? CTA bilateral CVS: S1,S2,RRR GI: +BS, NT, no distention Skin: buttock wounds/pressure injury ( as per staff and patient present at admission) Neuro:? motor grossly intact Psych: appropriate affect Objective Data Active Medications Acetaminophen (Acetaminophen 325 Mg Tablet) 650 mg PO Q6H PRN PRN Reason: Pain, Mild (Pain Scale 1-3) Albuterol Sulfate (Albuterol Sulfate 90 Mcg 8 Gm Inhaler) 2 puff INHALE Q4H PRN PRN Reason: Dyspnea Albuterol/Ipratropium (Albuterol/Iprat 2.5/0.5mg 3 Ml Ampul.Neb) 3 ml INHALE RQ4H WHILE AWAKE PRN PRN Reason: Shortness Of Breath/Wheezing Aspirin (Aspirin Enteric Coated 81 Mg Tablet.) 81 mg PO DAILY [facility] Last Admin: 04/25/22 07:58 Dose: 81 mg Documented By: BAKARI Atorvastatin Calcium (Atorvastatin Calcium 10 Mg Tablet) 10 mg PO BEDTIME [facility] Last Admin: 04/24/22 21:40 Dose: 10 mg Documented By: MOOKIE Clonidine HCl (Clonidine Hcl 0.1 Mg Tablet) 0.1 mg PO TID PRN; Protocol PRN Reason: hyperarousal, anxiety, panic Last Admin: 04/25/22 04:28 Dose: 0.1 mg Documented By: MOOKIE Dextrose (Dextrose 50 % 25 Gm/50 Ml Syringe) 25 gm IVPUSH Q15M PRN; Protocol PRN Reason: per Hypoglycemia Standing Ord. Docusate Sodium (Docusate Sodium 100 Mg Capsule) 100 mg PO DAILY PRN PRN Reason: Constipation Fluoxetine HCl (Fluoxetine Hcl 20 Mg Capsule) 40 mg PO DAILY [facility] Last Admin: 04/25/22 07:59 Dose: 40 mg Documented By: BAKARI Fluticasone Propionate (Fluticasone Propionate 100 Mcg Blst.W.Dev) 1 puff INHALE RBID [facility] Last Admin: 04/25/22 07:42 Dose: 1 puff Documented By: OLIVIA Gabapentin (Gabapentin 400 Mg Capsule) 400 mg PO BID@0900,1200 [facility] Last Admin: 04/25/22 07:59 Dose: 400 mg Documented By: BAKARI Glucose (Glucose Gel 15 Gm Gel..Gram.) 15 gm PO Q15M PRN; Protocol PRN Reason: per Hypoglycemia Standing Ord. Haloperidol (Haloperidol 1 Mg Tablet) 2 mg PO BEDTIME PRN PRN Reason: Agitation Last Admin: 04/22/22 03:22 Dose: 2 mg Documented By: JESSICA Heparin Sodium (Porcine) (Heparin Sodium,Porcine 5,000 Unit/Ml Vial) 5,000 unit SUBCUT Q8H [facility] Last Admin: 04/25/22 06:26 Dose: 5,000 unit Documented By: MOOKIE Ceftriaxone Sodium 1 gm/ (Sodium Chloride) 50 mls @ 100 mls/hr IV Q24H [facility] Last Infusion: 04/25/22 06:57 Dose: 0 mls/hr Documented By: MOOKIE Insulin Glargine (Insulin Glargine,Hum.Rec.Anlog 100 Unit/Ml 10 Ml Vial) 50 unit SUBCUT BEDTIME [facility] Last Admin: 04/24/22 21:42 Dose: 50 unit Documented By: MOOKIE Insulin Human Lispro (Insulin Lispro 100 Unit/Ml 3 Ml Vial) 0 unit SUBCUT QIDACHS [facility]; Protocol Last Admin: 04/25/22 07:57 Dose: 2 unit Documented By: BAKARI Isosorbide Mononitrate (Isosorbide Mononitrate 30 Mg Tab.Er.24h) 30 mg PO DAILY [facility]; Protocol Last Admin: 04/25/22 07:58 Dose: 30 mg Documented By: BAKARI Meclizine HCl (Meclizine Hcl 25 Mg Tablet) 25 mg PO TID PRN PRN Reason: Dizziness Melatonin (Melatonin 3 Mg Tablet) 6 mg PO BEDTIME PRN PRN Reason: insomnia Metoprolol Succinate (Metoprolol Succinate Er 50 Mg Tab.Er.24h) 50 mg PO DAILY [facility]; Protocol Last Admin: 04/25/22 07:58 Dose: 50 mg Documented By: BAKARI Morphine Sulfate (Morphine Sulfate 4 Mg/Ml Cartridge) 3 mg IVPUSH Q4H PRN; Protocol PRN Reason: Pain, Severe (Pain Scale 7-10) Last Admin: 04/25/22 09:02 Dose: 3 mg Documented By: BAKARI Nystatin (Nystatin Powder 15 Gm Bottle) 1 appl TOPICAL BID [facility]; Protocol Last Admin: 04/25/22 11:31 Dose: Not Given Documented By: BAKARI Non-Admin Reason: Med Not Available Omeprazole (Omeprazole 20 Mg Capsule.Dr) 20 mg PO BEDTIME [facility] Last Admin: 04/24/22 21:40 Dose: 20 mg Documented By: MOOKIE Ondansetron HCl (Ondansetron Hcl 4 Mg/2 Ml Vial) 4 mg IVPUSH Q8H PRN PRN Reason: Nausea and Vomiting Oxycodone HCl (Oxycodone Hcl Immed Release 5 Mg Tablet) 5 mg PO Q4H PRN PRN Reason: Pain, Moderate (Pain Scale 4-6 Last Admin: 04/24/22 15:22 Dose: 5 mg Documented By: BAKARI Pharmacy Consult (Consult Rx Perform Med Rec) 1 each MISCELLANE ONCE PRN PRN Reason: Consult order Polyethylene Glycol (Polyethylene Glycol 3350 17 Gm Powd.Pack) 17 gm PO DAILY [facility] Last Admin: 04/25/22 07:58 Dose: 17 gm Documented By: BAKARI Pregabalin (Pregabalin 100 Mg Capsule) 100 mg PO BID [facility] Last Admin: 04/25/22 07:58 Dose: 100 mg Documented By: BAKARI Risperidone (Risperidone 1 Mg Tablet) 1 mg PO BID [facility] Last Admin: 04/25/22 07:59 Dose: 1 mg Documented By: BAKARI Sodium Chloride (0.9 % Sodium Chloride Flush 3 Ml Syringe) 3 ml IVFLUSH QSHIFT [facility] Last Admin: 04/25/22 07:57 Dose: Not Given Documented By: BAKARI Non-Admin Reason: IV Running Tizanidine HCl (Tizanidine Hcl 4 Mg Tablet) 4 mg PO BEDTIME [facility] Last Admin: 04/24/22 21:40 Dose: 4 mg Documented By: MOOKIE Vitamin D (Cholecalciferol (Vitamin D3) 25 Mcg Tablet) 25 mcg PO DAILY [facility] Last Admin: 04/25/22 07:58 Dose: 25 mcg Documented By: BAKARI Labs CBC & Chem 7: 04/20/22 06:09 04/22/22 05:49 Labs: Laboratory Results - last 24 hr 04/24/22 04/24/22 04/25/22 15:30 19:46 07:47 POC Glucose 254 H 316 H 188 H Microbiology Microbiology Results: Microbiology 04/19/22 22:11 Blood Culture - Final Blood - Venous No growth after 5 days. 04/19/22 21:53 Blood Culture - Final Blood - Venous No growth after 5 days. Assessment and Plan (1) Abdominal pain: Status: Acute (2) Constipation: Status: Acute (3) Decubitus ulcer: Status: Acute Plan 61-year-old female with extensive past medical history that includes DANIEL, o besity hypoventilation syndrome, asthma COPD, as well as CHF with reduced ejection fraction who presents to the hospital with complaints of abdominal pain found to have stercoral colitis # ?abdominal pain -? secondary to severe constipation as well as fecal ball as well as sterile Coral colitis -? CT abdomen as above -? patient did move her bowels in the ED with the expulsion of the fecal ball -? will start her on? bowel regimen, with MiraLax daily, as well as docusate b.i.d. -? monitor for resolution of constipation #? FELICIA -? likely prerenal secondary to dehydration-improving , -? patient does not appear in volume overload, she is laying flat in bed with no orthopnea or PND, no lower extremity edema.? She has hypoxia at baseline with baseline oxygen requirement but denies any dyspnea at this time. -? monitor respiratory status given her underlying CHF ? may need off iv hydration , encouraged for po hydration -? follow BMP closely #? DANIEL/ OHS -? patient noncompliant with CPAP at home -? no CO2 retention at this time -? continue CPAP at bedtime #? chronic respiratory failure with hypoxia -? continue oxygen supplement as needed, keep O2 saturation between 88-92% given her underlying COPD # ? nonischemic cardiomyopathy/ CHF with reduced ejection fraction -? not in exacerbation at this time -? no orthopnea, no PND, no dyspnea, no lower extremity edema, BNP not significantly elevated -? no evidence of? fluids in lungs per chest CT -? at this time will hold diuretics given FELICIA - ? resume once kidney function improves -? monitor respiratory and volume status,? resume diuretics sooner if indicated #? diabetes -? low-dose sliding scale insulin -? continue home insulin -? diabetic diet #? hypertension -? stable -? continue home antihypertensives b/l buttock wounds /pressures :nutrition/frequent turiing ,oob seen by wound care -recomended surgery eval for buttock wounds /pressure injury- silver aginate dressin. wound care/surgery follow up morbid obesity:? Strongly encouraged to lose weight. ?DVT prophylaxis:? Heparin subQ ? inaptient need :b/l buttock wounds /pressures-surgery eval eval/managment Quality Stroke Does the patient have a stroke diagnosis?: No VTE Prior VTE?: No VTE Risk Level:: Medical - moderate - high VTE Device Contraindication: Treatment Not Indicated VTE Drug Contraindication: N/A - Med Ordered
[2022-04-25 12:02] LABS: Glucose, Whole Blood 204 mg/dL (60-115)
--- NOTE | 2022-04-25 12:11 | P.PNGS_ITS ---
Subjective Subjective Date of Service: 04/25/22 Interval history: denies new complaints good pain control Physical Exam Vital Signs: Vital Signs: Last Vital Signs Temp 97.4 F 04/25/22 12:00 Pulse 70 04/25/22 12:00 Resp 18 04/25/22 12:00 BP 123/60 04/25/22 12:00 Pulse Ox 97 04/25/22 12:00 O2 Del Method 04/25/22 12:00 O2 Flow Rate 3 04/25/22 12:00 BMI result Body Mass Index 49.2 Const: General: comfortable and no acute distress Resp: Effort & Inspection: normal respiratory effort Cardio: Rate: regular rate Back/Spine/Pelvis: Other: debrided area clean, granulating well Objective Data Active Medications Acetaminophen (Acetaminophen 325 Mg Tablet) 650 mg PO Q6H PRN PRN Reason: Pain, Mild (Pain Scale 1-3) Albuterol Sulfate (Albuterol Sulfate 90 Mcg 8 Gm Inhaler) 2 puff INHALE Q4H PRN PRN Reason: Dyspnea Albuterol/Ipratropium (Albuterol/Iprat 2.5/0.5mg 3 Ml Ampul.Neb) 3 ml INHALE RQ4H WHILE AWAKE PRN PRN Reason: Shortness Of Breath/Wheezing Aspirin (Aspirin Enteric Coated 81 Mg Tablet.Dr) 81 mg PO DAILY [facility] Last Admin: 04/25/22 07:58 Dose: 81 mg Documented By: BAKARI Atorvastatin Calcium (Atorvastatin Calcium 10 Mg Tablet) 10 mg PO BEDTIME [facility] Last Admin: 04/24/22 21:40 Dose: 10 mg Documented By: MOOKIE Clonidine HCl (Clonidine Hcl 0.1 Mg Tablet) 0.1 mg PO TID PRN; Protocol PRN Reason: hyperarousal, anxiety, panic Last Admin: 04/25/22 04:28 Dose: 0.1 mg Documented By: MOOKIE Dextrose (Dextrose 50 % 25 Gm/50 Ml Syringe) 25 gm IVPUSH Q15M PRN; Protocol PRN Reason: per Hypoglycemia Standing Ord. Docusate Sodium (Docusate Sodium 100 Mg Capsule) 100 mg PO DAILY PRN PRN Reason: Constipation Fluoxetine HCl (Fluoxetine Hcl 20 Mg Capsule) 40 mg PO DAILY [facility] Last Admin: 04/25/22 07:59 Dose: 40 mg Documented By: BAKARI Fluticasone Propionate (Fluticasone Propionate 100 Mcg Blst.W.Dev) 1 puff INHALE RBID [facility] Last Admin: 04/25/22 07:42 Dose: 1 puff Documented By: OLIVIA Gabapentin (Gabapentin 400 Mg Capsule) 400 mg PO BID@0900,1200 [facility] Last Admin: 04/25/22 12:06 Dose: 400 mg Documented By: BAKARI Glucose (Glucose Gel 15 Gm Gel..Gram.) 15 gm PO Q15M PRN; Protocol PRN Reason: per Hypoglycemia Standing Ord. Haloperidol (Haloperidol 1 Mg Tablet) 2 mg PO BEDTIME PRN PRN Reason: Agitation Last Admin: 04/22/22 03:22 Dose: 2 mg Documented By: JESSICA Heparin Sodium (Porcine) (Heparin Sodium,Porcine 5,000 Unit/Ml Vial) 5,000 unit SUBCUT Q8H [facility] Last Admin: 04/25/22 06:26 Dose: 5,000 unit Documented By: MOOKIE Ceftriaxone Sodium 1 gm/ (Sodium Chloride) 50 mls @ 100 mls/hr IV Q24H [facility] Last Infusion: 04/25/22 06:57 Dose: 0 mls/hr Documented By: MOOKIE Insulin Glargine (Insulin Glargine,Hum.Rec.Anlog 100 Unit/Ml 10 Ml Vial) 50 unit SUBCUT BEDTIME [facility] Last Admin: 04/24/22 21:42 Dose: 50 unit Documented By: MOOKIE Insulin Human Lispro (Insulin Lispro 100 Unit/Ml 3 Ml Vial) 0 unit SUBCUT QIDACHS [facility]; Protocol Last Admin: 04/25/22 12:06 Dose: 4 unit Documented By: BAKARI Isosorbide Mononitrate (Isosorbide Mononitrate 30 Mg Tab.Er.24h) 30 mg PO DAILY [facility]; Protocol Last Admin: 04/25/22 07:58 Dose: 30 mg Documented By: BAKARI Meclizine HCl (Meclizine Hcl 25 Mg Tablet) 25 mg PO TID PRN PRN Reason: Dizziness Melatonin (Melatonin 3 Mg Tablet) 6 mg PO BEDTIME PRN PRN Reason: insomnia Metoprolol Succinate (Metoprolol Succinate Er 50 Mg Tab.Er.24h) 50 mg PO DAILY [facility]; Protocol Last Admin: 04/25/22 07:58 Dose: 50 mg Documented By: BAKARI Morphine Sulfate (Morphine Sulfate 4 Mg/Ml Cartridge) 3 mg IVPUSH Q4H PRN; Protocol PRN Reason: Pain, Severe (Pain Scale 7-10) Last Admin: 04/25/22 09:02 Dose: 3 mg Documented By: BAKARI Nystatin (Nystatin Powder 15 Gm Bottle) 1 appl TOPICAL BID [facility]; Protocol Last Admin: 04/25/22 11:31 Dose: Not Given Documented By: BAKARI Non-Admin Reason: Med Not Available Omeprazole (Omeprazole 20 Mg Capsule.Dr) 20 mg PO BEDTIME [facility] Last Admin: 04/24/22 21:40 Dose: 20 mg Documented By: MOOKIE Ondansetron HCl (Ondansetron Hcl 4 Mg/2 Ml Vial) 4 mg IVPUSH Q8H PRN PRN Reason: Nausea and Vomiting Oxycodone HCl (Oxycodone Hcl Immed Release 5 Mg Tablet) 5 mg PO Q4H PRN PRN Reason: Pain, Moderate (Pain Scale 4-6 Last Admin: 04/24/22 15:22 Dose: 5 mg Documented By: BAKARI Pharmacy Consult (Consult Rx Perform Med Rec) 1 each MISCELLANE ONCE PRN PRN Reason: Consult order Polyethylene Glycol (Polyethylene Glycol 3350 17 Gm Powd.Pack) 17 gm PO DAILY [facility] Last Admin: 04/25/22 07:58 Dose: 17 gm Documented By: BAKARI Pregabalin (Pregabalin 100 Mg Capsule) 100 mg PO BID [facility] Last Admin: 04/25/22 07:58 Dose: 100 mg Documented By: BAKARI Risperidone (Risperidone 1 Mg Tablet) 1 mg PO BID [facility] Last Admin: 04/25/22 07:59 Dose: 1 mg Documented By: BAKARI Sodium Chloride (0.9 % Sodium Chloride Flush 3 Ml Syringe) [facility] Last Admin: 04/25/22 07:57 Dose: Not Given Documented By: BAKARI Non-Admin Reason: IV Running Tizanidine HCl (Tizanidine Hcl 4 Mg Tablet) 4 mg PO BEDTIME [facility] Last Admin: 04/24/22 21:40 Dose: 4 mg Documented By: MOOKIE Vitamin D (Cholecalciferol (Vitamin D3) 25 Mcg Tablet) 25 mcg PO DAILY [facility] Last Admin: 04/25/22 07:58 Dose: 25 mcg Documented By: BAKARI Labs CBC & Chem 7: 04/20/22 06:09 04/22/22 05:49 Labs: Laboratory Results - last 24 hr 04/24/22 04/24/22 04/25/22 15:30 19:46 07:47 POC Glucose 254 H 316 H 188 H 04/25/22 11:53 POC Glucose 204 H Microbiology Microbiology Results: Microbiology 04/19/22 22:11 Blood Culture - Final Blood - Venous No growth after 5 days. 04/19/22 21:53 Blood Culture - Final Blood - Venous No growth after 5 days. Procedures Date of Service Date of Service: 04/25/22 Progress Note: A&P Assessment and plan (1) Decubitus ulcer: Status: Acute Assessment and Plan: I changed her dressings - applied sliver alginate to open wound continue same wound care- silver alginate to debrided area change position side to side - pt not very mobile Time Spent With Patient Time: Total time spent is greater than 50% in coordination of care (as documented) at patient's floor/unit and/or counseling patient: Quality Stroke Does the patient have a stroke diagnosis?: No VTE Prior VTE?: No VTE Risk Level:: Medical - moderate - high VTE Device Contraindication: Treatment Not Indicated VTE Drug Contraindication: N/A - Med Ordered
[2022-04-25] MEDS: oxyCODONE HCl Immed Release 5 MG TABLET PO ×2 (15:05→20:36)
[2022-04-25 15:43] LABS: Glucose, Whole Blood 200 mg/dL (60-115)
[2022-04-25] MEDS: 0.9 % Sodium Chloride Flush 3 ML SYRINGE IVFLUSH ×2 (16:25→23:16)
[2022-04-25] MEDS: TiZANidine HCL 4 MG TABLET PO (20:30)
[2022-04-25] MEDS: Omeprazole 20 MG CAPSULE.DR PO (20:30)
[2022-04-25] MEDS: Insulin Glargine,Hum.rec.anlog 100 UNIT/ML 10 ML VIAL 50 UNIT SUBCUT (20:31)
[2022-04-25] MEDS: Atorvastatin Calcium 10 MG TABLET PO (20:31)
[2022-04-25 20:35] LABS: Glucose, Whole Blood 165 mg/dL (60-115)
[2022-04-25] MEDS: Melatonin 3 MG TABLET 6 MG PO (20:36)
[2022-04-25] MEDS: diphenhydrAMINE HCL 50 MG/ML VIAL 25 MG IVPUSH (22:37)
[2022-04-26] VITALS (8 sets, daily range): BP systolic 141–155; BP diastolic 61–67; PULSE 70–81; RESP 18; TEMP 36.2–37; O2SAT 92–98
[2022-04-26] MEDS: cefTRIAXone sodium 1 GM in 0.9 % Sodium Chloride 50 ML IV (05:49)
[2022-04-26] MEDS: Heparin Sodium,Porcine 5,000 UNIT/ML VIAL 5000 UNIT SUBCUT ×3 (05:50→20:26)
[2022-04-26 07:53] LABS: Glucose, Whole Blood 132 mg/dL (60-115)
[2022-04-26] MEDS: Fluticasone Propionate 100 MCG BLST.W.DEV 1 PUFF INHALE ×2 (08:06→20:41)
[2022-04-26] MEDS: risperiDONE 1 MG TABLET PO ×2 (08:24→20:27)
[2022-04-26] MEDS: Isosorbide Mononitrate 30 MG TAB.ER.24H PO (08:24)
[2022-04-26] MEDS: Aspirin Enteric Coated 81 MG TABLET.DR PO (08:24)
[2022-04-26] MEDS: polyethylene glycoL 3350 17 GM POWD.PACK PO ×2 (08:25→20:26)
[2022-04-26] MEDS: Pregabalin 100 MG CAPSULE PO ×2 (08:25→20:27)
[2022-04-26] MEDS: FLUoxetine HCl 20 MG CAPSULE 40 MG PO (08:25)
[2022-04-26] MEDS: Metoprolol Succinate ER 50 MG TAB.ER.24H PO (08:25)
[2022-04-26] MEDS: Cholecalciferol (Vitamin D3) 25 MCG TABLET PO (08:25)
[2022-04-26] MEDS: Gabapentin 400 MG CAPSULE PO ×2 (08:25→12:19)
[2022-04-26] MEDS: 0.9 % Sodium Chloride Flush 3 ML SYRINGE IVFLUSH ×3 (08:26→20:34)
[2022-04-26] MEDS: oxyCODONE HCl Immed Release 5 MG TABLET PO ×4 (09:52→22:05)
[2022-04-26] MEDS: Acetaminophen 325 MG TABLET 650 MG PO ×2 (09:52→18:06)
--- NOTE | 2022-04-26 11:12 | P.DS_ITS ---
DS: Providers Provider Date of Service: 04/28/22 Date of admission: 04/20/22 05:33 Primary care physician: Tavo Huber MD Consults: 04/22/22 11:43 Consult to Wound Care Routine Consulting Provider: [facility] Wound Care Management Reason for consultation: b/l buttock wounds 04/23/22 07:44 Consult to General Surgery Routine Consulting Provider: [facility] General Surgeons Reason for consultation: buttock pressure ulcer -?need debridement. Has provider been notified: No DS: Diagnosis Discharge Diagnosis (1) Abdominal pain: Status: Acute (2) Constipation: Status: Acute (3) Decubitus ulcer: Status: Acute DS: Summary Hospital Course Hospital Course: date of discharge and service 03/29/22. vitals today stable , no new c/o. labs seems fine. 61year-old female with medical history of DANIEL, obesity hypoventilation syndrome, CHFeEF,? diabetes, HTN,? HLD, asthma, history of chronic pain, presents to the hospital with complaints of abdominal pain.? Patient reports that she is constipated, has not been able to move her bowels for several days.? She has lower abdominal pain specially within trying to defecate.? She denies any nausea or vomiting, no fever or chills, she denies any shortness of breath, no orthopnea or PND and no lower extremity edema.? Patient reports that she has a CPAP at home but has not been compliant with a because she is waiting on parts.? She has oxygen at home but has not needed to use it.? She also has not been using her diuretics because of cost.? She has not been able to get it from the pharmacy.? She denies any headache, no change in vision, no numbness or tingling, no urinary symptoms including no dysuria frequency or urgency.? ?on arrival to the ED patient hemodynamically stable noted to be 90% on room air Labs are significant for? WBC count of 10.7, hemoglobin of 9.5 which is around her baseline, hematocrit 30.9, pH of 7.32, pCO2 of 41, BUN of 105, creatinine of 2.54 with a baseline around 1.3, BNP of 126, UA positive for small leukocyte Estrace and some WBC ?abdominal pelvic CT showed stool ball within the rectum with changes of stercoral colitis.? Chest CT shows clear lungs with no evidence of any new inflammation or nodules. ?patient given 60 mg of IV Lasix in the ED and will be admitted for further management Of note patient was discharged from the hospital on 04/14 after being managed for acute on chronic hypoxic respiratory failure as well as asthma/COPD/ CHF exacerbation and? FELICIA. Hospital course: Abdominal pain possible related constipation-seems to be improved with laxative regimen, producing bowels. FELICIA probably related to dehydration and poor oral intake-which responded well to hydration as well as p.o. intake is also improving. slowly introduce diurectics outpatient. Monitor BMP closely. b/l buttock wounds /pressures :nutrition/frequent turing Q 2 , out of bed as possible, she is not very mobile. seen by wound care and sugery:s/p debridement ,recomended surgery eval for buttock wounds /pressure injury-silver aginate dressing daily. Patient was initially started on antibiotic because of possible UTI: completed antibiotics,blood cultures negative,urine culture -not significant. plan: b/l buttock wounds /pressures :nutrition/frequent turing Q 2 , out of bed as possible, silver aginate dressing daily,she is not very mobile. follow up with surgery and wound care outpatient. felicia: improved ,slowly introduce diurectics outpatient. Monitor BMP closely. pt-recomended home with vna.vna will be staring tomorrow. Above management discussed with the patient in detail length she understand and in agreement with the above plan, time spent 50 minutes and 50% time spent on counseling. Significant findings: As above. Procedures performed: None. Treatment and response: As above. Complications: None. Time Spent with Patient Time attestation: Total time spent providing and/or coordinating discharge services: Discharge coordination time: Greater than 30 minutes Quality: Safe Use of Opioids Does Pt have an Active Cancer Diagnosis on the Problem List?: No Quality: Stroke Does the patient have a stroke diagnosis?: No Physical Exam Vital Signs: Vital Signs: Last Vital Signs Temp 97.2 F 04/26/22 07:16 Pulse 72 04/26/22 08:07 Resp 18 04/26/22 08:07 BP 144/65 H 04/26/22 07:16 Pulse Ox 96 04/26/22 07:16 O2 Del Method 04/26/22 07:16 O2 Flow Rate 1 04/26/22 07:16 BMI result Body Mass Index 49.2 General: AO X 3, no acute distress Resp:? CTA bilateral CVS: S1,S2,RRR GI: +BS, NT, no distention Skin: buttock wounds-s/p debridement-area seems clean ,granulating well. Neuro:? motor grossly intact Psych: appropriate affect DS: Data Data Completed and Pending Completed studies during hospitalization [Text1]: Pending at discharge 04/24/22 11:58 Surgical [PTH] Routine Procedures Assistance with Respiratory Ventilation, Less than 24 Consecutive Hours, Continuous Positive Airway Pressure (12/11/20) Labs on day of discharge: Laboratory Results - last 24 hr 04/25/22 04/25/22 04/25/22 11:53 15:19 20:30 POC Glucose 204 H 200 H 165 H 04/26/22 07:21 POC Glucose 132 H Additional Comments Additional comments: ?CT/CT abdomen pelvis wo IV con IMPRESSION: Stool ball within the rectum with equivocal changes of stercoral colitis. No chest pathology.? CT/CT chest wo IV con IMPRESSION: Stool ball within the rectum with equivocal changes of stercoral colitis. No chest pathology.? Discharge Plan Discharge Anticipated Discharge Date/Time: 04/26/22 10:48 Patient Disposition: Home Health Service Discharge Diagnosis: abdominal pain, constipation, wounds of the buttocks Referrals: [facility] [Other] - 1 Week Tavo Huber MD [Primary Care Provider] - 1 Week Tavo Seo MD [Physician] - 1 Week (follow up in 1week.) Sara Madera PA [Physician Care Trainer] - 2 Weeks Discharge Medications: New polyethylene glycol 3350 17 gram Powder In Packet 17 g PO DAILY Qty: 30 0RF docusate sodium 100 mg Capsule 100 mg PO DAILY PRN (Reason: Constipation) Qty: 30 0RF oxycodone 5 mg Tablet 5 mg PO Q4H PRN (Reason: Pain, Moderate (Pain Scale 4-6) Qty: 10 0RF Rx Instructions: Partial Fill upon patient request. Continued gabapentin 400 mg capsule 400 mg PO BID@0900,1200 ipratropium-albuterol 0.5 mg-3 mg(2.5 mg base)/3 mL Solution For Nebulization 3 ml inhalation RQ4H WHILE AWAKE PRN (Reason: Shortness Of Breath/Wheezing) Qty: 1 0RF insulin lispro [Humalog U-100 Insulin] 100 unit/mL Solution See Protocol subcut QIDACHS Qty: 1 0RF Protocol: Insulin Correction Scale Less than or equal to 110 ---- Give (units): 0 111 to 150 Give (units): 0 151 to 200 Give (units): 2 201 to 250 Give (units): 4 251 to 300 Give (units): 6 301 to 350 Give (units): 8 Greater than 350 Give (units): 10 Call MD if Blood Glucose > : 350 Rx Instructions: sliding scale fluoxetine 40 mg capsule 40 mg PO DAILY metoprolol succinate 50 mg tablet extended release 24 hr 50 mg PO DAILY aspirin 81 mg tablet,delayed release (DR/EC) 81 mg PO DAILY simvastatin 20 mg tablet 20 mg PO BEDTIME omeprazole 20 mg capsule,delayed release(DR/EC) 20 mg PO BEDTIME Rx Instructions: PT TAKES BEDTIME albuterol sulfate [ProAir HFA] 90 mcg/actuation HFA aerosol inhaler 2 puff inhalation Q4H PRN (Reason: Dyspnea) fluticasone propionate [Flovent HFA] 110 mcg/actuation HFA aerosol inhaler 2 puff inhalation BID tizanidine 4 mg Tablet 4 mg PO BEDTIME isosorbide mononitrate 30 mg Tablet Extended Release 24 Hr 30 mg PO DAILY bumetanide 2 mg tablet 1 tab PO DAILY amlodipine 10 mg tablet 1 tab PO DAILY cholecalciferol (vitamin D3) 25 mcg (1,000 unit) capsule 1 cap PO DAILY meclizine 25 mg Tablet 25 mg PO TID PRN (Reason: Dizziness) gabapentin 400 mg capsule 800 mg PO BEDTIME pregabalin 100 mg capsule 1 cap PO BID melatonin 3 mg tablet 2 tab PO BEDTIME PRN (Reason: insomnia) haloperidol 2 mg tablet 1 tab PO BEDTIME PRN (Reason: Agitation) Rx Instructions: do not give is oversedated clonidine HCl 0.1 mg Tablet 0.1 mg PO TID PRN (Reason: hyperarousal, anxiety, panic) Qty: 90 0RF Protocol: Hold for SBP< HOLD for SBP < : 90 hydralazine 25 mg Tablet 25 mg PO BID Qty: 60 0RF Protocol: Hold for SBP< HOLD for SBP < : 90 spironolactone 25 mg Tablet 25 mg PO DAILY Qty: 30 0RF Protocol: Hold for SBP< HOLD for SBP < : 90 bumetanide 1 mg Tablet 1 mg PO BEDTIME Qty: 30 0RF Protocol: Hold for SBP< HOLD for SBP < : 90 risperidone 1 mg tablet 1 tab PO BID Changed insulin glargine [Lantus U-100 Insulin] 100 unit/mL solution 50 unit subcut BEDTIME Qty: 1 0RF Held furosemide 20 mg tablet 1 tab PO DAILY Hold Instructions: Resume on 04/28/22. Discharge Orders: Discharge Order (Routine); Ordered 04/28/22 Ordered By: Flakito Kraus Diet: Advance to usual diet Activity on Discharge: As tolerated Stand Alone Forms: Patient Portal Discharge page Other Ambulatory Orders: Basic Metabolic Panel (Routine) Timeframe: 1 Week Facility: [facility] - Location: Laboratory Ordered By: Flakito Kraus Care Plan Goals: Abdominal pain possible related constipation-seems to be improved with laxative regimen, producing bowels.moniter for contipation if needed adjust luxatives frequency . FELICIA probably related to dehydration and poor oral intake-which responded well to hydration as well as p.o. intake is also improving. slowly introduce diurectics outpatient. Monitor BMP closely. b/l buttock wounds /pressures :nutrition/frequent turing Q 2 , out of bed as possible, she is not very mobile. seen by wound care and sugery:s/p debridement ,recomended surgery eval for buttock wounds /pressure injury-silver aginate dressing daily. Patient was initially started on antibiotic because of possible UTI: completed antibiotics,blood cultures negative,urine culture -not significant. Health Concerns: As above. Plan of Treatment: need close monitering and wound care for buttock wounds /pressure-silver aginate dressing daily. moniter for nutrition ,po intake as well as moniter bmp closely. Assessment: as above.
--- NOTE | 2022-04-26 11:45 | P.PNIM_ITS ---
Subjective Subjective Date of Service: 04/26/22
--- NOTE | 2022-04-26 11:45 | HO.PM.IMPN ---
Subjective Subjective Date of Service: 04/26/22 Interval History: f/u buttock decubtii Review of Systems seem has still soraness in buttock area Denies any chest pain or abdominal pain or fever or chills Producing BMs Physical Exam Vital Signs: Vital Signs: Last Vital Signs Temp 97.5 F 04/26/22 11:23 Pulse 76 04/26/22 11:23 Resp 18 04/26/22 11:23 BP 141/61 H 04/26/22 11:23 Pulse Ox 95 04/26/22 11:23 O2 Del Method 04/26/22 11:23 O2 Flow Rate 1 04/26/22 07:16 BMI result Body Mass Index 49.2 General: AO X 3, no acute distress Resp:? CTA bilateral CVS: S1,S2,RRR GI: +BS, NT, no distention Skin: buttock wounds/pressure injury -debridement area -seems improving clean ,granulating some has soarness Neuro:? motor grossly intact Psych: appropriate affect Objective Data Active Medications Acetaminophen (Acetaminophen 325 Mg Tablet) 650 mg PO Q6H PRN PRN Reason: Pain, Mild (Pain Scale 1-3) Last Admin: 04/26/22 09:52 Dose: 650 mg Documented By: ORI Albuterol Sulfate (Albuterol Sulfate 90 Mcg 8 Gm Inhaler) 2 puff INHALE Q4H PRN PRN Reason: Dyspnea Albuterol/Ipratropium (Albuterol/Iprat 2.5/0.5mg 3 Ml Ampul.Neb) 3 ml INHALE RQ4H WHILE AWAKE PRN PRN Reason: Shortness Of Breath/Wheezing Aspirin (Aspirin Enteric Coated 81 Mg Tablet.) 81 mg PO DAILY [facility] Last Admin: 04/26/22 08:24 Dose: 81 mg Documented By: ORI Atorvastatin Calcium (Atorvastatin Calcium 10 Mg Tablet) 10 mg PO BEDTIME [facility] Last Admin: 04/25/22 20:31 Dose: 10 mg Documented By: RANJANA Clonidine HCl (Clonidine Hcl 0.1 Mg Tablet) 0.1 mg PO TID PRN; Protocol PRN Reason: hyperarousal, anxiety, panic Last Admin: 04/25/22 15:06 Dose: 0.1 mg Documented By: BAKARI Dextrose (Dextrose 50 % 25 Gm/50 Ml Syringe) 25 gm IVPUSH Q15M PRN; Protocol PRN Reason: per Hypoglycemia Standing Ord. Docusate Sodium (Docusate Sodium 100 Mg Capsule) 100 mg PO DAILY PRN PRN Reason: Constipation Fluoxetine HCl (Fluoxetine Hcl 20 Mg Capsule) 40 mg PO DAILY [facility] Last Admin: 04/26/22 08:25 Dose: 40 mg Documented By: ORI Fluticasone Propionate (Fluticasone Propionate 100 Mcg Blst.W.Dev) 1 puff INHALE RBID [facility] Last Admin: 04/26/22 08:06 Dose: 1 puff Documented By: DAISY Gabapentin (Gabapentin 400 Mg Capsule) 400 mg PO BID@0900,1200 [facility] Last Admin: 04/26/22 08:25 Dose: 400 mg Documented By: ORI Glucose (Glucose Gel 15 Gm Gel..Gram.) 15 gm PO Q15M PRN; Protocol PRN Reason: per Hypoglycemia Standing Ord. Haloperidol (Haloperidol 1 Mg Tablet) 2 mg PO BEDTIME PRN PRN Reason: Agitation Last Admin: 04/22/22 03:22 Dose: 2 mg Documented By: JESSICA Heparin Sodium (Porcine) (Heparin Sodium,Porcine 5,000 Unit/Ml Vial) 5,000 unit SUBCUT Q8H [facility] Last Admin: 04/26/22 05:50 Dose: 5,000 unit Documented By: RANJANA Ceftriaxone Sodium 1 gm/ (Sodium Chloride) 50 mls @ 100 mls/hr IV Q24H [facility] Last Infusion: 04/26/22 06:24 Dose: 0 mls/hr Documented By: RANJANA Insulin Glargine (Insulin Glargine,Hum.Rec.Anlog 100 Unit/Ml 10 Ml Vial) 50 unit SUBCUT BEDTIME [facility] Last Admin: 04/25/22 20:31 Dose: 50 unit Documented By: RANJANA Insulin Human Lispro (Insulin Lispro 100 Unit/Ml 3 Ml Vial) 0 unit SUBCUT QIDACHS [facility]; Protocol Last Admin: 04/26/22 08:17 Dose: Not Given Documented By: ORI Non-Admin Reason: No Insulin Coverage Isosorbide Mononitrate (Isosorbide Mononitrate 30 Mg Tab.Er.24h) 30 mg PO DAILY [facility]; Protocol Last Admin: 04/26/22 08:24 Dose: 30 mg Documented By: ORI Meclizine HCl (Meclizine Hcl 25 Mg Tablet) 25 mg PO TID PRN PRN Reason: Dizziness Melatonin (Melatonin 3 Mg Tablet) 6 mg PO BEDTIME PRN PRN Reason: insomnia Last Admin: 04/25/22 20:36 Dose: 6 mg Documented By: RANJANA Metoprolol Succinate (Metoprolol Succinate Er 50 Mg Tab.Er.24h) 50 mg PO DAILY [facility]; Protocol Last Admin: 04/26/22 08:25 Dose: 50 mg Documented By: ORI Nystatin (Nystatin Powder 15 Gm Bottle) 1 appl TOPICAL BID [facility]; Protocol Last Admin: 04/26/22 10:09 Dose: Not Given Documented By: ORI Non-Admin Reason: Med Not Available Omeprazole (Omeprazole 20 Mg Capsule.Dr) 20 mg PO BEDTIME [facility] Last Admin: 04/25/22 20:30 Dose: 20 mg Documented By: RANJANA Ondansetron HCl (Ondansetron Hcl 4 Mg/2 Ml Vial) 4 mg IVPUSH Q8H PRN PRN Reason: Nausea and Vomiting Oxycodone HCl (Oxycodone Hcl Immed Release 5 Mg Tablet) 5 mg PO Q4H PRN PRN Reason: Pain, Moderate (Pain Scale 4-6 Last Admin: 04/26/22 09:52 Dose: 5 mg Documented By: ORI Pharmacy Consult (Consult Rx Perform Med Rec) 1 each MISCELLANE ONCE PRN PRN Reason: Consult order Polyethylene Glycol (Polyethylene Glycol 3350 17 Gm Powd.Pack) 17 gm PO BID [facility] Pregabalin (Pregabalin 100 Mg Capsule) 100 mg PO BID [facility] Last Admin: 04/26/22 08:25 Dose: 100 mg Documented By: ORI Risperidone (Risperidone 1 Mg Tablet) 1 mg PO BID [facility] Last Admin: 04/26/22 08:24 Dose: 1 mg Documented By: ORI Sodium Chloride (0.9 % Sodium Chloride Flush 3 Ml Syringe) 3 ml IVFLUSH QSHIFT [facility] Last Admin: 04/26/22 08:26 Dose: 3 ml Documented By: ORI Tizanidine HCl (Tizanidine Hcl 4 Mg Tablet) 4 mg PO BEDTIME [facility] Last Admin: 04/25/22 20:30 Dose: 4 mg Documented By: RANJANA Vitamin D (Cholecalciferol (Vitamin D3) 25 Mcg Tablet) 25 mcg PO DAILY [facility] Last Admin: 04/26/22 08:25 Dose: 25 mcg Documented By: ORI Labs CBC & Chem 7: 04/20/22 06:09 04/22/22 05:49 Labs: Laboratory Results - last 24 hr 04/25/22 04/25/22 04/25/22 11:53 15:19 20:30 POC Glucose 204 H 200 H 165 H 04/26/22 07:21 POC Glucose 132 H Assessment and Plan (1) Abdominal pain: Status: Acute (2) Constipation: Status: Acute (3) Chronic respiratory failure with hypoxia: Status: Acute (4) Hypoxia: Status: Acute (5) Decubitus ulcer: Status: Acute Plan 61-year-old female with extensive past medical history that includes DANIEL, obesity hypoventilation syndrome, asthma COPD, as well as CHF with reduced ejection fraction who presents to the hospital with complaints of abdominal pain found to have stercoral colitis # ?abdominal pain -? secondary to severe constipation as well as fecal ball as well as sterile Coral colitis -? CT abdomen as above -? patient did move her bowels in the ED with the expulsion of the fecal ball -? will start her on? bowel regimen, with MiraLax bid daily, as well as docusate b.i.d. passing bm;s #? FELICIA -? likely prerenal secondary to dehydration-improving , -? patient does not appear in volume overload, she is laying flat in bed with no orthopnea or PND, no lower extremity edema.? She has hypoxia at baseline with baseline oxygen requirement but denies any dyspnea at this time. -? monitor respiratory status given her underlying CHF ? seems euvolemic , we will slowly introduce diuretics #? DANIEL/ OHS -? patient noncompliant with CPAP at home -? no CO2 retention at this time -? continue CPAP at bedtime #? chronic respiratory failure with hypoxia -? continue oxygen supplement as needed, keep O2 saturation between 88-92% given her underlying COPD # ? nonischemic cardiomyopathy/ CHF with reduced ejection fraction -? not in exacerbation at this time -? no orthopnea, no PND, no dyspnea, no lower extremity edema, BNP not significantly elevated -? no evidence of? fluids in lungs per chest CT -? at this time will hold diuretics given FELICIA - ? resume once kidney function improves -? monitor respiratory and volume status,? resume diuretics sooner if indicated #? diabetes -? low-dose sliding scale insulin -? continue home insulin -? diabetic diet #? hypertension -? stable -? continue home antihypertensives b/l buttock wounds /pressures :nutrition/frequent turiing ,oob seen by wound care -recomended surgery eval for buttock wounds /pressure injury-silver aginate dressin. wound care/surgery follow up PT recommended rehab-discussed with the patient in detail since patient has bilateral buttock wounds and also not mobile much-she decided for going to rehab morbid obesity:? Strongly encouraged to lose weight. ?DVT prophylaxis:? Heparin subQ ? inaptient need : Waiting rehab placement. Quality Stroke Does the patient have a stroke diagnosis?: No VTE Prior VTE?: No VTE Risk Level:: Medical - moderate - high VTE Device Contraindication: Treatment Not Indicated VTE Drug Contraindication: N/A - Med Ordered
[2022-04-26] MEDS: Insulin Lispro 100 UNIT/ML 3 ML VIAL SUBCUT ×3 (12:20→20:28)
--- NOTE | 2022-04-26 12:24 | PC.NURSE ---
Addendum entered by Marian Gordillo RN 04/26/22 16:47: Patients coccyx dressing changed per wound care orders. Original Note: Patiet OOB using commode and sitting on edge to eat lunch. Patients ghotra cath out at 1225, DTV at 1825. Patient awaiting rehab placement
[2022-04-26] MEDS: cloNIDine HCL 0.1 MG TABLET PO ×2 (13:50→22:07)
[2022-04-26] MEDS: Atorvastatin Calcium 10 MG TABLET PO (20:26)
[2022-04-26] MEDS: TiZANidine HCL 4 MG TABLET PO (20:27)
[2022-04-26] MEDS: Omeprazole 20 MG CAPSULE.DR PO (20:27)
[2022-04-26] MEDS: Insulin Glargine,Hum.rec.anlog 100 UNIT/ML 10 ML VIAL 50 UNIT SUBCUT (20:28)
[2022-04-27] VITALS (7 sets, daily range): BP systolic 140–193; BP diastolic 65–79; PULSE 70–82; RESP 18; TEMP 36.3–37.1; O2SAT 94–97
[2022-04-27] MEDS: oxyCODONE HCl Immed Release 5 MG TABLET PO ×3 (02:14→13:34)
[2022-04-27] MEDS: cefTRIAXone sodium 1 GM in 0.9 % Sodium Chloride 50 ML IV (06:06)
[2022-04-27] MEDS: Heparin Sodium,Porcine 5,000 UNIT/ML VIAL 5000 UNIT SUBCUT (06:08)
[2022-04-27] MEDS: Cholecalciferol (Vitamin D3) 25 MCG TABLET PO (07:20)
[2022-04-27] MEDS: Aspirin Enteric Coated 81 MG TABLET.DR PO (07:20)
[2022-04-27] MEDS: Gabapentin 400 MG CAPSULE PO ×2 (07:20→13:30)
[2022-04-27] MEDS: cloNIDine HCL 0.1 MG TABLET PO ×2 (07:21→16:12)
[2022-04-27] MEDS: Metoprolol Succinate ER 50 MG TAB.ER.24H PO (07:21)
[2022-04-27] MEDS: Pregabalin 100 MG CAPSULE PO (07:21)
[2022-04-27] MEDS: FLUoxetine HCl 20 MG CAPSULE 40 MG PO (07:21)
[2022-04-27] MEDS: Isosorbide Mononitrate 30 MG TAB.ER.24H PO (07:21)
[2022-04-27] MEDS: risperiDONE 1 MG TABLET PO (07:21)
[2022-04-27] MEDS: polyethylene glycoL 3350 17 GM POWD.PACK PO (07:22)
[2022-04-27] MEDS: 0.9 % Sodium Chloride Flush 3 ML SYRINGE IVFLUSH ×3 (07:26→22:25)
[2022-04-27] MEDS: Insulin Lispro 100 UNIT/ML 3 ML VIAL SUBCUT ×3 (07:33→16:12)
[2022-04-27] MEDS: amLODIPine Besylate 10 MG TABLET PO (08:55)
--- NOTE | 2022-04-27 10:23 | MHC.CM.PN ---
MD requesting to know when [facility] (nursing specifically) can see patient for return services in the home for urgent F/U wound care. He does not want her to go home and not have daily wound care and then have to return to the ED for wound issues again. This RNCM messaged via [employer] to [facility] (VNA patient on service w/per previous notes), w/MD's inquiry as well as made a phone call attempt. Recording on phone messaging system indicates company is closed. Messaged MD to update him. Should the VNA message back via [employer], will report their response to MD for further safe D/C planning. CM to follow.
--- NOTE | 2022-04-27 11:06 | MHC.CM.PN ---
Still no response from V[facility]. Updated MD RE no response.
--- NOTE | 2022-04-27 13:41 | MHC.CM.PN ---
MD requested this RNCM meet w/patient to reiterate his messaging to her RE it is not in her best interest to D/C prior to obtaining knowledge of her VNA's nursing availability for her for wound care. Met w/patient and family at bedside; patient requesting to leave and wants to know how this can happen. Explained to patient MD not comfortable D/Cing her to home w/out date from VNA RE when they can get in her home to change wound dressing, as he his concerned that she may return to ED again if there is too much of a delay, and he'd rather her remain here for wound care until VNA responds w/date. Explained to her that exploring other VNAs not really best option D/T other VNAs in area at best, on wait list a few weeks out for nursing, so it is best she remain w/same VNA should she decide she'd like to. Patient and family discussed a for a few minutes and patient ultimately decided to remain [place] [facility] [place] per MD recommendation until her VNA responds w/service date for nursing in her home. Reported to bedside nurse and MD. Patient, family, MD all in agreement with plan. CM to follow.
--- NOTE | 2022-04-27 18:04 | HO.PM.IMPN ---
Subjective Subjective Date of Service: 04/27/22 Interval History: buttock ulcers Review of Systems seems feeling better no new c/o Physical Exam Vital Signs: Vital Signs: Last Vital Signs Temp 98.0 F 04/27/22 15:13 Pulse 77 04/27/22 15:13 Resp 18 04/27/22 15:13 BP 155/66 H 04/27/22 15:13 Pulse Ox 96 04/27/22 15:13 O2 Del Method 04/27/22 15:13 O2 Flow Rate 1.0 04/27/22 15:13 BMI result Body Mass Index 49.2 General: AO X 3, no acute distress Resp:? CTA bilateral CVS: S1,S2,RRR GI: +BS, NT, no distention Skin: buttock wounds/pressure injury -debridement area -seems improving clean ,granulating Neuro:? motor grossly intact Psych: appropriate affect Objective Data Active Medications Acetaminophen (Acetaminophen 325 Mg Tablet) 650 mg PO Q6H PRN PRN Reason: Pain, Mild (Pain Scale 1-3) Last Admin: 04/26/22 18:06 Dose: 650 mg Documented By: ORI Albuterol Sulfate (Albuterol Sulfate 90 Mcg 8 Gm Inhaler) 2 puff INHALE Q4H PRN PRN Reason: Dyspnea Amlodipine Besylate (Amlodipine Besylate 10 Mg Tablet) 10 mg PO DAILY [facility]; Protocol Last Admin: 04/27/22 08:55 Dose: 10 mg Documented By: ORI Aspirin (Aspirin Enteric Coated 81 Mg Tablet.) 81 mg PO DAILY [facility] Last Admin: 04/27/22 07:20 Dose: 81 mg Documented By: ORI Atorvastatin Calcium (Atorvastatin Calcium 10 Mg Tablet) 10 mg PO BEDTIME [facility] Last Admin: 04/26/22 20:26 Dose: 10 mg Documented By: RANJANA Clonidine HCl (Clonidine Hcl 0.1 Mg Tablet) 0.1 mg PO TID PRN; Protocol PRN Reason: hyperarousal, anxiety, panic Last Admin: 04/27/22 16:12 Dose: 0.1 mg Documented By: ORI Dextrose (Dextrose 50 % 25 Gm/50 Ml Syringe) 25 gm IVPUSH Q15M PRN; Protocol PRN Reason: per Hypoglycemia Standing Ord. Docusate Sodium (Docusate Sodium 100 Mg Capsule) 100 mg PO DAILY PRN PRN Reason: Constipation Fluoxetine HCl (Fluoxetine Hcl 20 Mg Capsule) 40 mg PO DAILY [facility] Last Admin: 04/27/22 07:21 Dose: 40 mg Documented By: ORI Fluticasone Propionate (Fluticasone Propionate 100 Mcg Blst.W.Dev) 1 puff INHALE RBID [facility] Last Admin: 04/27/22 08:52 Dose: Not Given Documented By: ORI Non-Admin Reason: Patient Refused Gabapentin (Gabapentin 400 Mg Capsule) 400 mg PO BID@0900,1200 [facility] Last Admin: 04/27/22 13:30 Dose: 400 mg Documented By: ORI Glucose (Glucose Gel 15 Gm Gel..Gram.) 15 gm PO Q15M PRN; Protocol PRN Reason: per Hypoglycemia Standing Ord. Haloperidol (Haloperidol 1 Mg Tablet) 2 mg PO BEDTIME PRN PRN Reason: Agitation Last Admin: 04/22/22 03:22 Dose: 2 mg Documented By: JESSICA Heparin Sodium (Porcine) (Heparin Sodium,Porcine 5,000 Unit/Ml Vial) 5,000 unit SUBCUT Q8H [facility] Last Admin: 04/27/22 13:30 Dose: Not Given Documented By: ORI Non-Admin Reason: Patient Refused Ceftriaxone Sodium 1 gm/ (Sodium Chloride) 50 mls @ 100 mls/hr IV Q24H [facility] Last Infusion: 04/27/22 06:41 Dose: 0 mls/hr Documented By: RANJANA Insulin Glargine (Insulin Glargine,Hum.Rec.Anlog 100 Unit/Ml 10 Ml Vial) 50 unit SUBCUT BEDTIME [facility] Last Admin: 04/26/22 20:28 Dose: 50 unit Documented By: RANJANA Insulin Human Lispro (Insulin Lispro 100 Unit/Ml 3 Ml Vial) 0 unit SUBCUT QIDACHS [facility]; Protocol Last Admin: 04/27/22 16:12 Dose: 4 unit Documented By: ORI Isosorbide Mononitrate (Isosorbide Mononitrate 30 Mg Tab.Er.24h) 30 mg PO DAILY [facility]; Protocol Last Admin: 04/27/22 07:21 Dose: 30 mg Documented By: ORI Meclizine HCl (Meclizine Hcl 25 Mg Tablet) 25 mg PO TID PRN PRN Reason: Dizziness Melatonin (Melatonin 3 Mg Tablet) 6 mg PO BEDTIME PRN PRN Reason: insomnia Last Admin: 04/25/22 20:36 Dose: 6 mg Documented By: RANJANA Metoprolol Succinate (Metoprolol Succinate Er 50 Mg Tab.Er.24h) 50 mg PO DAILY [facility]; Protocol Last Admin: 04/27/22 07:21 Dose: 50 mg Documented By: ORI Nystatin (Nystatin Powder 15 Gm Bottle) 1 appl TOPICAL BID [facility]; Protocol Last Admin: 04/27/22 09:16 Dose: Not Given Documented By: ORI Non-Admin Reason: Med Not Available Omeprazole (Omeprazole 20 Mg Capsule.) 20 mg PO BEDTIME [facility] Last Admin: 04/26/22 20:27 Dose: 20 mg Documented By: RANJANA Ondansetron HCl (Ondansetron Hcl 4 Mg/2 Ml Vial) 4 mg IVPUSH Q8H PRN PRN Reason: Nausea and Vomiting Oxycodone HCl (Oxycodone Hcl Immed Release 5 Mg Tablet) 5 mg PO Q4H PRN PRN Reason: Pain, Moderate (Pain Scale 4-6 Last Admin: 04/27/22 13:34 Dose: 5 mg Documented By: ORI Pharmacy Consult (Consult Rx Perform Med Rec) 1 each MISCELLANE ONCE PRN PRN Reason: Consult order Polyethylene Glycol (Polyethylene Glycol 3350 17 Gm Powd.Pack) 17 gm PO BID [facility] Last Admin: 04/27/22 07:22 Dose: 17 gm Documented By: ORI Pregabalin (Pregabalin 100 Mg Capsule) 100 mg PO BID [facility] Last Admin: 04/27/22 07:21 Dose: 100 mg Documented By: ORI Risperidone (Risperidone 1 Mg Tablet) 1 mg PO BID [facility] Last Admin: 04/27/22 07:21 Dose: 1 mg Documented By: ORI Sodium Chloride (0.9 % Sodium Chloride Flush 3 Ml Syringe) 3 ml IVFLUSH QSHIFT [facility] Last Admin: 04/27/22 16:15 Dose: 3 ml Documented By: ORI Tizanidine HCl (Tizanidine Hcl 4 Mg Tablet) 4 mg PO BEDTIME [facility] Last Admin: 04/26/22 20:27 Dose: 4 mg Documented By: RANJANA Vitamin D (Cholecalciferol (Vitamin D3) 25 Mcg Tablet) 25 mcg PO DAILY [facility] Last Admin: 04/27/22 07:20 Dose: 25 mcg Documented By: ORI Labs CBC & Chem 7: 04/20/22 06:09 04/22/22 05:49 Labs: Laboratory Results - last 24 hr 04/26/22 04/27/22 04/27/22 19:17 07:24 11:28 POC Glucose 282 H 214 H 162 H 04/27/22 15:17 POC Glucose 201 H Assessment and Plan (1) Abdominal pain: Status: Acute (2) Constipation: Status: Acute (3) Chronic respiratory failure with hypoxia: Status: Acute (4) Hypoxia: Status: Acute (5) Decubitus ulcer: Status: Acute Plan 61-year-old female with extensive past medical history that includes DANIEL, obesity hypoventilation syndrome, asthma COPD, as well as CHF with reduced ejection fraction who presents to the hospital with complaints of abdominal pain found to have stercoral colitis # ?abdominal pain -? secondary to severe constipation as well as fecal ball as well as sterile Coral colitis -? CT abdomen as above -? patient did move her bowels in the ED with the expulsion of the fecal ball -? will start her on? bowel regimen, with MiraLax bid daily, as well as docusate b.i.d. passing bm;s #? FELICIA -? likely prerenal secondary to dehydration-improving , -? patient does not appear in volume overload, she is laying flat in bed with no orthopnea or PND, no lower extremity edema.? She has hypoxia at baseline with baseline oxygen requirement but denies any dyspnea at this time. -? monitor respiratory status given her underlying CHF ? seems euvolemic , we will slowly introduce diuretics #? DANIEL/ OHS -? patient noncompliant with CPAP at home -? no CO2 retention at this time -? continue CPAP at bedtime #? chronic respiratory failure with hypoxia -? continue oxygen supplement as needed, keep O2 saturation between 88-92% given her underlying COPD # ? nonischemic cardiomyopathy/ CHF with reduced ejection fraction -? not in exacerbation at this time -? no orthopnea, no PND, no dyspnea, no lower extremity edema, BNP not significantly elevated -? no evidence of? fluids in lungs per chest CT -? at this time will hold diuretics given FELICIA - ? resume once kidney function improves -? monitor respiratory and volume status,? resume diuretics sooner if indicated #? diabetes -? low-dose sliding scale insulin -? continue home insulin -? diabetic diet #? hypertension -? stable -? continue home antihypertensives b/l buttock wounds /pressures :nutrition/frequent turiing ,oob seen by wound care -recomended surgery eval for buttock wounds /pressure injury-silver aginate dressin. wound care/surgery follow up PT recommended rehab-discussed with the patient in detail since patient has bilateral buttock wounds and also not mobile much-she decided for going to rehab morbid obesity:? Strongly encouraged to lose weight. ?DVT prophylaxis:? Heparin subQ ? inaptient need : awaitin vna . Quality Stroke Does the patient have a stroke diagnosis?: No VTE Prior VTE?: No VTE Risk Level:: Medical - moderate - high VTE Device Contraindication: Treatment Not Indicated VTE Drug Contraindication: N/A - Med Ordered
[2022-04-27] MEDS: Fluticasone Propionate 100 MCG BLST.W.DEV 1 PUFF INHALE (19:40)
[2022-04-27] MEDS: Insulin Glargine,Hum.rec.anlog 100 UNIT/ML 10 ML VIAL 50 UNIT SUBCUT (22:18)
[2022-04-28] MEDS: oxyCODONE HCl Immed Release 5 MG TABLET PO ×2 (00:24→06:06)
[2022-04-28] MEDS: risperiDONE 1 MG TABLET PO ×2 (00:26→08:06)
[2022-04-28] MEDS: cefTRIAXone sodium 1 GM in 0.9 % Sodium Chloride 50 ML IV (06:09)
[2022-04-28] MEDS: 0.9 % Sodium Chloride Flush 3 ML SYRINGE IVFLUSH (07:23)
[2022-04-28 07:57] VITALS: BP 143/77; PULSE 97; RESP 16; TEMP 36.5; O2SAT 92
[2022-04-28] MEDS: Fluticasone Propionate 100 MCG BLST.W.DEV 1 PUFF INHALE (08:02)
[2022-04-28 08:03] VITALS: PULSE 81; RESP 16; O2SAT 95
[2022-04-28] MEDS: Insulin Lispro 100 UNIT/ML 3 ML VIAL SUBCUT ×2 (08:05→11:20)
[2022-04-28] MEDS: amLODIPine Besylate 10 MG TABLET PO (08:06)
[2022-04-28] MEDS: Pregabalin 100 MG CAPSULE PO (08:06)
[2022-04-28] MEDS: Metoprolol Succinate ER 50 MG TAB.ER.24H PO (08:06)
[2022-04-28] MEDS: FLUoxetine HCl 20 MG CAPSULE 40 MG PO (08:06)
[2022-04-28] MEDS: Gabapentin 400 MG CAPSULE PO ×2 (08:06→11:20)
[2022-04-28] MEDS: Cholecalciferol (Vitamin D3) 25 MCG TABLET PO (08:06)
[2022-04-28] MEDS: polyethylene glycoL 3350 17 GM POWD.PACK PO (08:06)
[2022-04-28] MEDS: Aspirin Enteric Coated 81 MG TABLET.DR PO (08:06)
[2022-04-28] MEDS: Isosorbide Mononitrate 30 MG TAB.ER.24H PO (08:06)
[2022-04-28 08:18] LABS: Glucose, Whole Blood 245 mg/dL (60-115)
[2022-04-28 08:55] LABS: Blood Urea Nitrogen 22 mg/dL (9-16); Creatinine Clr Calc Pharmacy 88.1; Estimated Glomerular Filt Rate > 60
[2022-04-28] MEDS: cloNIDine HCL 0.1 MG TABLET PO (09:10)
[2022-04-28] MEDS: hydrALAZINE HCl 25 MG TABLET PO (09:10)
--- NOTE | 2022-04-28 10:27 | MHC.CM.PN ---
mary confirmed will start tomorrow
[2022-04-28] MEDS: Bumetanide 1 MG TABLET PO (11:20)
--- NOTE | 2022-04-28 11:30 | P.F2F_ITS ---
Service Date Service Date: 04/28/22 Encounter Date of encounter: 04/28/22 Encounter: asif , buttock wounds Reasons for Services Signs and symptoms assessed: moniter wounds /wound care , asif Reason for senior living: medication management, medication treatment and teach disease management Reason for physical therapy: home safety and mobility, therapeutic exercises, restore joint function, gait/transfer training, assess need for DME, ADL training, energy conservation and other MD Overseeing Care: Tavo Huber Homebound: Leaving the home is medically contraindicated at this time without the asist of a device and/or another person due th the listed conditions above and below. Reason homebound: weakness related to hospital stay Certification: Based on the above findings, I certify that this patient is confined to the home and needs intermittent senior living care, physical therapy and/or speech therapy, or continues to need occupational therapy. The patient is under my care, and I have initiated the establishment of the plan of care. The patient will be followed by a physician who will periodically review the plan of care.
[2022-04-28 11:51] LABS: Glucose, Whole Blood 227 mg/dL (60-115)
[2022-04-28 11:54] VITALS: BP 153/67; PULSE 84; RESP 16; TEMP 36.6; O2SAT 95
== END 2022-04-28 13:44 | disposition home health service (06) | DRG 469 ==
LOC: HO.ED 04-20 00:38 → HO.EDOVER 04-20 05:40 → HO.S3 04-21 17:47
PROVIDERS: Internal Medicine; Surgery; Admitting Provider Internal Medicine; Emergency Provider Student in an Organized Health Care Education/Training Program; PCP Internal Medicine; Visit Provider Internal Medicine
PROC: 0JB90ZZ Excision of Buttock Subcutaneous Tissue and Fascia, Open Approach (ICD-10-PCS; principal; 2022-04-24 10:50)
DX: N17.9 Acute kidney failure, unspecified (principal); L89.320 Pressure ulcer of left buttock, unstageable; J96.11 Chronic respiratory failure with hypoxia; I13.0 Hypertensive heart and chronic kidney disease with heart failure and stage 1 through stage 4 chronic kidney disease, or unspecified chronic kidney disease; I96 Gangrene, not elsewhere classified; I42.8 Other cardiomyopathies; L89.319 Pressure ulcer of right buttock, unspecified stage; E66.2 Morbid (severe) obesity with alveolar hypoventilation; I50.22 Chronic systolic (congestive) heart failure; E86.0 Dehydration; E11.22 Type 2 diabetes mellitus with diabetic chronic kidney disease; E11.40 Type 2 diabetes mellitus with diabetic neuropathy, unspecified; N18.30 Chronic kidney disease, stage 3 unspecified; K52.89 Other specified noninfective gastroenteritis and colitis; K56.41 Fecal impaction; Z20.822 Contact with and (suspected) exposure to COVID-19; Z68.42 Body mass index [BMI] 45.0-49.9, adult; Z87.891 Personal history of nicotine dependence; Z88.6 Allergy status to analgesic agent; Z79.82 Long term (current) use of aspirin; Z79.51 Long term (current) use of inhaled steroids; Z79.4 Long term (current) use of insulin; Z79.899 Other long term (current) drug therapy
CPT/HCPCS: 36415; 71250; 74176; 80048; 80053; 81001; 82565; 82803; 82947; 83605; 83880; 84520; 85025; 87040; 87086; 87635; 88304; 90686; 93005; 94640; 97162; 99285; C1758; J0690; J0696; J1100; J1200; J1940; J2250; J2270; J2405; J2795; J3010

== ENCOUNTER 2022-05-06 11:54 | Outpatient (REF) | payer MEDICAID, SELFPAY ==
[2022-05-06 13:43] LABS: MANUAL DIFF FLAG NO
[2022-05-06 13:46] LABS: Basophils Percent Auto 0.6 % (0-2); Eosinophils Absolute Auto 0.2 X10*3/uL (0.0-0.4); Eosinophils Percent Auto 3.7 % (0-4); Hematocrit 33.7 % (37.0-47.0); Hemoglobin 10.2 g/dl (12.0-16.0); Imm Gran Abs Auto 0.02 X10*3/uL (0.00-0.03); Imm Gran Pct Auto 0.3 % (0.0-0.4); Lymphocytes Absolute Auto 1.1 X10*3/uL (1.2-4.9); Lymphocytes Percent Auto 16.9 % (20-40); Mean Corpuscular HGB Conc 30.3 g/dl (31.0-35.0); Mean Corpuscular Hemoglobin 26.8 pg (27.0-33.0); Mean Corpuscular Volume 88.7 fL (80.0-98.0); Mean Platelet Volume 9.9 fL (9.4-12.3); Monocytes Absolute Auto 0.6 X10*3/uL (0.1-1.2); Monocytes Percent Auto 9.1 % (2-11); Neutrophils Absolute Auto 4.5 x10*3/uL (2.0-8.3); Neutrophils Percent Auto 69.4 % (45-73); Platelet Count 223 X10*3/uL (160-400); Red Cell Distribution Width 16.5 % (11.0-16.0); White Blood Count 6.5 X10*3/uL (4.8-10.8)
[2022-05-06 14:05] LABS: Estimated Average Glucose 160 mg/dL; Hemoglobin A1C 148.5661 umol/L; Hemoglobin A1c % 7.2 %
[2022-05-06 14:23] LABS: Alanine Aminotransferase < 6 U/L (0-31); Albumin Level 3.7 g/dL (3.5-5.0); Alkaline Phosphatase 57 U/L (39-117); Anion Gap 19 (12-20); Aspartate Amino Transferase 10 U/L (5-31); Bilirubin Total 0.5 mg/dL (0.0-1.0); Blood Urea Nitrogen 42 mg/dL (9-16); Calcium 8.7 mg/dL (8.4-10.2); Carbon Dioxide 31 mmol/L (22-29); Chloride 99 mmol/L (96-108); Estimated Glomerular Filt Rate 35; Glucose Random 165 mg/dL (60-115); Iron 55 mcg/dL (30-160); Percent Iron Saturation 19 % (15-50); Potassium 4.2 mmol/L (3.3-5.1); Sodium 145 mmol/L (135-145); Total Iron Binding Capacity 286 mcg/dL (228-428); Total Protein 6.5 g/dL (6.5-8.0); Unsaturated Iron Binding 231 ug/dL
== END 2022-05-06 11:55 | disposition home or self-care (01) ==
LOC: HO.10HDL 11:54
PROVIDERS: Visit Provider Internal Medicine
DX: D64.9 Anemia, unspecified (principal); E11.9 Type 2 diabetes mellitus without complications; I42.9 Cardiomyopathy, unspecified; N18.9 Chronic kidney disease, unspecified; I50.9 Heart failure, unspecified
CPT/HCPCS: 36415; 80053; 83036; 83540; 85025

== ENCOUNTER 2022-05-08 08:09 | Outpatient (RCR) | payer MEDICAID, SELFPAY | END 2022-10-02 16:00 | disposition home or self-care (01) | LOC: HO.WCC 08:09 | PROVIDERS: Visit Provider Surgery | DX: E11.622 Type 2 diabetes mellitus with other skin ulcer (principal); L98.412 Non-pressure chronic ulcer of buttock with fat layer exposed; E11.40 Type 2 diabetes mellitus with diabetic neuropathy, unspecified; L30.9 Dermatitis, unspecified; R32 Unspecified urinary incontinence; R15.9 Full incontinence of feces; I11.0 Hypertensive heart disease with heart failure; I50.9 Heart failure, unspecified; J44.9 Chronic obstructive pulmonary disease, unspecified; Z79.4 Long term (current) use of insulin; Z87.891 Personal history of nicotine dependence | CPT/HCPCS: 17250; 97597; 99213 ==

== ENCOUNTER 2022-06-06 07:13 | Outpatient (REF) | payer MEDICAID, SELFPAY | END 2022-06-06 07:14 | disposition home or self-care (01) | LOC: HO.HOSX 07:13 | PROVIDERS: Visit Provider Physician Assistant | DX: Z13.89 Encounter for screening for other disorder (principal) ==

== ENCOUNTER → 2022-06-25 10:25 | Outpatient (BNVA) | payer MEDICAID, SELFPAY | PROVIDERS: PCP Internal Medicine; Visit Provider Internal Medicine Endocrinology, Diabetes & Metabolism | DX: E11.65 Type 2 diabetes mellitus with hyperglycemia (principal); E11.40 Type 2 diabetes mellitus with diabetic neuropathy, unspecified; E11.22 Type 2 diabetes mellitus with diabetic chronic kidney disease; N18.4 Chronic kidney disease, stage 4 (severe); Z79.4 Long term (current) use of insulin | CPT/HCPCS: 82947; 99202 ==

== ENCOUNTER → 2022-07-28 10:02 | Outpatient (BNVA) | payer MEDICAID, SELFPAY | PROVIDERS: PCP Internal Medicine; Visit Provider Registered Nurse Diabetes Educator | DX: E11.65 Type 2 diabetes mellitus with hyperglycemia (principal) | CPT/HCPCS: 99211 ==

== ENCOUNTER 2022-07-29 12:33 | Outpatient (REF) | payer MEDICAID, SELFPAY ==
[2022-07-29 13:50] LABS: MANUAL DIFF FLAG NO
[2022-07-29 13:56] LABS: Basophils Percent Auto 0.4 % (0-2); Eosinophils Absolute Auto 0.2 X10*3/uL (0.0-0.4); Eosinophils Percent Auto 1.8 % (0-4); Hematocrit 39.6 % (37.0-47.0); Hemoglobin 12.1 g/dl (12.0-16.0); Imm Gran Abs Auto 0.05 X10*3/uL (0.00-0.03); Imm Gran Pct Auto 0.6 % (0.0-0.4); Lymphocytes Absolute Auto 1.4 X10*3/uL (1.2-4.9); Lymphocytes Percent Auto 16.6 % (20-40); Mean Corpuscular HGB Conc 30.6 g/dl (31.0-35.0); Mean Corpuscular Hemoglobin 27.1 pg (27.0-33.0); Mean Corpuscular Volume 88.8 fL (80.0-98.0); Mean Platelet Volume 9.4 fL (9.4-12.3); Monocytes Absolute Auto 0.8 X10*3/uL (0.1-1.2); Neutrophils Absolute Auto 6.1 x10*3/uL (2.0-8.3); Neutrophils Percent Auto 71.6 % (45-73); Platelet Count 167 X10*3/uL (160-400); Red Blood Count 4.46 X10*6/uL (4.20-5.50); Red Cell Distribution Width 14.4 % (11.0-16.0); White Blood Count 8.5 X10*3/uL (4.8-10.8)
[2022-07-29 14:20] LABS: Alanine Aminotransferase 9 U/L (0-31); Albumin Level 4.2 g/dL (3.5-5.0); Alkaline Phosphatase 60 U/L (39-117); Anion Gap 18 (12-20); Aspartate Amino Transferase 13 U/L (5-31); Bilirubin Total 0.4 mg/dL (0.0-1.0); Blood Urea Nitrogen 88 mg/dL (9-16); Calcium 9.2 mg/dL (8.4-10.2); Carbon Dioxide 29 mmol/L (22-29); Chloride 98 mmol/L (96-108); Estimated Glomerular Filt Rate 21; Glucose Random 186 mg/dL (60-115); Potassium 4.7 mmol/L (3.3-5.1); Sodium 140 mmol/L (135-145); Total Protein 7.6 g/dL (6.5-8.0)
[2022-07-29 14:23] LABS: Estimated Average Glucose 197 mg/dL; Hemoglobin A1c % 8.5 %
[2022-07-29 14:41] LABS: Thyroid Stimulating Hormone 1.52 uIU/mL (0.32-4.0)
== END 2022-07-29 12:34 | disposition home or self-care (01) ==
LOC: HO.10HDL 12:33
PROVIDERS: Visit Provider Internal Medicine
DX: I12.9 Hypertensive chronic kidney disease with stage 1 through stage 4 chronic kidney disease, or unspecified chronic kidney disease (principal); E11.22 Type 2 diabetes mellitus with diabetic chronic kidney disease; N18.9 Chronic kidney disease, unspecified; R60.0 Localized edema; J45.909 Unspecified asthma, uncomplicated
CPT/HCPCS: 36415; 80053; 83036; 84443; 85025

== ENCOUNTER 2022-08-25 09:38 | Emergency (ER) | payer MEDICAID, SELFPAY ==
--- NOTE | ~2022-08-25 | CT_ITS ---
EXAMINATION: CT ABDOMEN AND PELVIS WITHOUT CONTRAST CLINICAL INFORMATION: Left flank pain COMPARISON: CT abdomen and pelvis 04/19/2022 TECHNIQUE: Multidetector volumetric imaging was performed from the superior aspect of the liver through the pubic symphysis. Sagittal and coronal reformatted images were obtained on the technologist's workstation. This CT examination was performed using dose optimization techniques as appropriate, variously including the following: *Automated exposure control *Adjustment of mA and/or kV according to patient size (this includes techniques or standardized protocols for targeted exams where dose is matched to indication/reason for exam; i.e. extremities or head) *Use of iterative reconstruction technique DLP: 1167 mGy-cm FINDINGS: LUNG BASES: The visualized lung bases are unremarkable. LIVER, GALLBLADDER, AND BILIARY TREE: The liver is normal in size, shape, and attenuation. No focal hepatic lesion or biliary ductal dilatation is present. Status post cholecystectomy. PANCREAS: Unremarkable. SPLEEN: Unremarkable. ADRENAL GLANDS: Unremarkable. KIDNEYS AND URETERS: No radiodense renal calculi. No hydronephrosis or appreciable renal lesion. Focal cortical scarring in the left upper pole noted. Mild symmetric bilateral perirenal fascial stranding, nonspecific finding. BLADDER: Decompressed limiting assessment, but grossly unremarkable. GASTROINTESTINAL TRACT: Sigmoid diverticulosis. No evidence of acute diverticulitis. Small to moderate amount of formed stool in the colon. No dilated bowel loops. No bowel wall thickening. Normal appendix. No ascites or free air. ABDOMINAL WALL: Small fat-containing umbilical hernia. LYMPH NODES: No lymphadenopathy. VASCULAR: Normal caliber abdominal aorta. Relatively extensive Monckeberg type vascular calcifications. PELVIC VISCERA: Gynecologic structures are grossly unremarkable, limited assessment. OSSEOUS STRUCTURES: No acute fracture or suspicious osseous lesion. Mild multilevel spondylosis of the lower thoracic and lumbar spine. CT/CT abdomen pelvis wo IV con IMPRESSION: 1. No renal or ureteral calculi. No hydronephrosis. 2. No acute intra-abdominal process identified. 3. Sigmoid diverticulosis. No evidence of acute diverticulitis.
[2022-08-25 09:50] VITALS: BP 111/47; PULSE 74; RESP 16; TEMP 36.5; O2SAT 96; BMI 49.6
--- NOTE | 2022-08-25 12:56 | ED_ITS ---
HPI - General Adult General Chief complaint: Back Pain/Injury Stated complaint: Back pain Time Seen by Provider: 08/25/22 12:51 Source: patient Mode of arrival: wheelchair Limitations: no limitations History of Present Illness HPI narrative: Lupis is a 62 year old female who presents with lumbar spine pain for two weeks. She reports the pain as sharp, non-radiating, and centrally located. She denies any trauma or movement prior to the pain starting. Pain is reproducible with palpation. She reports decreased pain with use of lidocaine patches and upright positioning. She denies saddle paresthesia or loss of bladder/bowel control. She also reports a left sided flank pain independent from the lumbar spine pain and denies urinary symptomatology, however, reports she has been urinating in a brief d/t inability to get to the bathroom from pain. Onset (ago): week(s) (two) Location: back Radiation: non-radiation Quality: sharp Pain Consistency: constant Relieving factors: other (lidocaine patch) Related Data Home Medications Medication Instructions Recorded Confirmed albuterol sulfate 90 mcg/actuation 2 puff inhalation Q4H PRN Dyspnea 11/23/20 06/25/22 aerosol inhaler (ProAir HFA) aspirin 81 mg tablet,delayed 81 mg PO DAILY 11/23/20 06/25/22 release fluoxetine 40 mg capsule 40 mg PO DAILY 11/23/20 06/25/22 fluticasone propionate 110 2 puff inhalation BID 11/23/20 04/20/22 mcg/actuation HFA aerosol inhaler (Flovent HFA) metoprolol succinate 50 mg 50 mg PO DAILY 11/23/20 06/25/22 tablet,extended release 24 hr omeprazole 20 mg capsule,delayed 20 mg PO BEDTIME 11/23/20 06/25/22 release simvastatin 20 mg tablet 20 mg PO BEDTIME 11/23/20 06/25/22 isosorbide mononitrate 30 mg 30 mg PO DAILY 12/11/20 06/25/22 tablet,extended release 24 hr tizanidine 4 mg tablet 4 mg PO BEDTIME 12/11/20 04/20/22 gabapentin 400 mg capsule 400 mg PO BID@0900,1200 01/09/21 04/20/22 amlodipine 10 mg tablet 1 tab PO DAILY 06/07/21 06/25/22 bumetanide 2 mg tablet 1 tab PO DAILY 06/07/21 04/20/22 cholecalciferol (vitamin D3) 25 1 cap PO DAILY 06/07/21 06/25/22 mcg (1,000 unit) capsule gabapentin 400 mg capsule 800 mg PO BEDTIME 06/07/21 06/25/22 meclizine 25 mg tablet 25 mg PO TID PRN Dizziness 06/07/21 04/20/22 pregabalin 100 mg capsule 1 cap PO BID 06/08/21 06/25/22 furosemide 20 mg tablet 1 tab PO DAILY 03/26/22 06/25/22 haloperidol 2 mg tablet 1 tab PO BEDTIME PRN Agitation 03/26/22 06/25/22 melatonin 3 mg tablet 2 tab PO BEDTIME PRN insomnia 04/20/22 04/20/22 risperidone 1 mg tablet 1 tab PO BID 04/20/22 04/20/22 blood sugar diagnostic (FreeStyle #10 ea 06/25/22 06/25/22 Lite Strips) insulin syringe-needle U-100 1 mL #10 ea 06/25/22 06/25/22 31 gauge x 5/16 (BD Insulin Syringe Ultra-Fine) lancets 28 gauge (FreeStyle #100 ea 06/25/22 06/25/22 Lancets) Previous Rx's Medication Instructions Recorded insulin lispro 100 unit/mL See Protocol subcut QIDACHS #1 mL 01/16/21 subcutaneous solution (Humalog U-100 Insulin) ipratropium 0.5 mg-albuterol 3 mg 3 ml inhalation RQ4H WHILE AWAKE 01/16/21 (2.5 mg base)/3 mL nebulization PRN Shortness Of Breath/Wheezing soln #1 mL clonidine HCl 0.1 mg tablet 0.1 mg PO TID PRN hyperarousal, 04/01/22 anxiety, panic #90 tabs bumetanide 1 mg tablet 1 mg PO BEDTIME #30 tabs 04/08/22 hydralazine 25 mg tablet 25 mg PO BID #60 tabs 04/08/22 spironolactone 25 mg tablet 25 mg PO DAILY #30 tabs 04/08/22 docusate sodium 100 mg capsule 100 mg PO DAILY PRN Constipation 04/26/22 #30 caps insulin glargine 100 unit/mL 50 unit (0.5 mL) subcut BEDTIME #1 04/26/22 subcutaneous solution (Lantus mL U-100 Insulin) oxycodone 5 mg tablet 5 mg PO Q4H PRN Pain, Moderate 04/26/22 (Pain Scale 4-6 #10 tabs polyethylene glycol 3350 17 gram 17 g PO DAILY #30 ea 04/26/22 oral powder packet Allergies Allergy/AdvReac Type Severity Reaction Status Date / Time ibuprofen Allergy Intermediate vommiting, Verified 06/25/22 10:50 itching acetaminophen [Tylenol] Allergy Mild Unknown Verified 06/25/22 10:50 morphine AdvReac Intermediate vomiting Verified 06/25/22 10:50 Review of Systems Constitutional: Constitutional: Reports no additional constitutional comp laints, Denies chills, Denies fever(s) and Denies night sweats Eyes: Eyes: Reports no additional eye complaints, Denies blurry vision, Denies change in vision, Denies diplopia, Denies eye discharge, Denies loss of vision and Denies eye pain ENT: Denies dizziness Cardiovascular: Cardiovascular: Reports no additional cardiovascular complaints, Denies chest pain, Denies lightheadedness, Denies Loss of Consciousness and Denies dyspnea Respiratory: Respiratory: Reports no additional respiratory complaints and Denies dyspnea Gastrointestinal: Gastrointestinal: Reports no additional gastrointestinal complaints, Denies abdominal pain, Denies melena, Denies hematochezia, Denies change in bowel habits and Denies change in stool character Genitourinary: Genitourinary: Denies hematuria, Denies urinary frequency, Denies dysuria, Denies urinary incontinence, Denies urinary hesitancy and Denies urinary urgency Musculoskeletal: Musculoskeletal: Reports no additional musculoskeletal complaints, Reports back pain (lumbar spine), Denies numbness and Denies tingling Neurologic: Denies dizziness, Denies loss of vision, Denies numbness and Denies tingling Psychiatric: Psychiatric: Reports no additional psychiatric complaints Endocrine: Endocrine: Reports no additional endocrine complaints Hematologic/Lymphatic: Hematologic/Lymphatic: Reports no additional hematologic/lymphatic complaints Allergic/Immunologic: Allergic/Immunologic: Reports no additional allergic/immunologic complaints PMFSH Past Medical History Attestation statement: The following information was validated with the patient. Source: old records reviewed and nursing notes reviewed Medical History (Updated 08/25/22 @ 16:08 by GUADALUPE Ma) Abdominal pain Acute on chronic combined systolic and diastolic CHF (congestive heart failure) Adjustment disorder with mixed anxiety and depressed mood FELICIA (acute kidney injury) Asthma Cellulitis of right lower extremity CHF exacerbation Chronic pain Chronic respiratory failure with hypoxia CKD (chronic kidney disease) stage 3, GFR 30-59 ml/min Congestive heart failure Constipation COPD (chronic obstructive pulmonary disease) Decubitus ulcer Depression Diabetes Diabetic neuropathy, painful High cholesterol Hyperglycemia due to diabetes mellitus Hypertension Hypoxia MDD (major depressive disorder), recurrent episode, moderate Morbid obesity NICM (nonischemic cardiomyopathy) Obesity hypoventilation syndrome DANIEL (obstructive sleep apnea) Panic disorder Stasis dermatitis of both legs Stercoral colitis Uncontrolled type 2 diabetes mellitus with hyperglycemia Surgical History Hx of cholecystectomy Family History Family History Mother HTN (hypertension) Diabetes CAD (coronary artery disease) Father HTN (hypertension) Diabetes CAD (coronary artery disease) Maternal Grandmother CAD (coronary artery disease) Social History Social History Household Members: Unknown / Unable to assess Household Members Other:: GRANDSON Housing: House 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 Do you presently have visiting nurse or other home services: Yes ([facility]idan) Alcohol intake: never Patient Tobacco Use Status: Former Tobacco user Quit Date: 1999 Tobacco use type: Cigarette Years Smoked: 38 Second Hand Smoke Exposure: No Substance Use Type: Marijuana Advance Directives: Yes Advance Directives on File: Yes Advance Directives Date on File: 12/19/20 service: No Current occupational status: disabled Physical Exam ED Vital Signs: Vital Signs - 24 hr 08/25/22 09:50 Temperature 97.7 F Pulse Rate 74 Respiratory Rate 16 Blood Pressure 111/47 L Pulse Oximetry 96 Oxygen Delivery Method Room Air BMI result Body Mass Index 49.6 Const General: cooperative, no acute distress, alert and awake Nutritional Appearance: well nourished Orientation/consciousness: patient oriented x3 Limitations: physical limitations HENMT Head: Yes normal to inspection and Yes atraumatic Ears: hearing grossly normal bilaterally and external ears normal General nose exam: Normal external nose present, no nasal discharge noted and no epistaxis Face and sinus: Yes normal facial exam, No abrasion and No laceration Mouth: Normal oral and palatal mucosa present, no drooling and no muffled voice Eyes General: appearance normal, both eyes and all related structures Periorbital: periorbital findings normal Eyelids: Yes eyelids normal Conjunctivae: conjunctivae normal Pupils: Equal, round and reactive pupils present EOM: EOMs intact bilaterally Neck Neck: Yes normal visual inspection, Yes full ROM and Yes no lymphadenopathy Chest Chest palpation & inspection: normal inspection of the chest Resp Effort & Inspection: normal respiratory effort and able to speak in complete sentences Auscultation: clear to auscultation bilaterally Cardio Palpation: normal PMI Rate: regular rate Rhythm: regular rhythm Heart sounds: S1 normal heart sound present and S2 normal heart sound present GI Inspection: Yes normal to inspection General: Yes CVA tenderness on the left Back/Spine/Pelvis Back: CVA tenderness and back tenderness (lumbar spine) Thoracic/Lumbar Spine: lumbar spinal tenderness Neuro General: patient oriented x3, moves all extremities, no focal motor deficits and Unable to assess gait Cranial nerves: Yes Equal, round and reactive pupils present Cognition (Neuro): normal cognition Gait exam (Neuro): Unable to assess gait Motor exam (neuro): 5/5 motor strength present throughout Sensory Exam: Normal double simultaneous stimulation for sensation Extrem General: Yes normal to inspection, Yes full ROM and Yes capillary refill normal Psych Appearance: grossly normal Mental Status: mental status grossly normal Affect: normal affect Attitude: cooperative Thought process: Normal thought process present Thought content: Normal thought content present Insight: Good insight present (Psych) Medications Administered Discontinued Medications Generic Name Dose Route Start Last Admin Trade Name Trungq PRN Reason Stop Dose Admin Ketorolac Tromethamine 15 mg 08/25/22 15:19 08/25/22 15:33 Ketorolac Tromethamine 15 Mg/Ml Vial IM 08/25/22 15:20 15 mg ONCE ONE Administration Oxycodone HCl 10 mg 08/25/22 15:26 08/25/22 15:33 Oxycodone Hcl Immed Release 5 Mg Tablet PO 08/25/22 15:27 10 mg ONCE ONE Administration Medical Decision Making Medical Decision Making MDM Narrative: Patient is a 62 year old assigned female at with a history of chronic pain, type 2 DM, CKD, asthma, and COPD presenting to the emergency department today with low back pain. Patient's physical exam showed reproducible low back pain and an appropriately healing decubitus ulcer but was otherwise unremarkable. Patient's blood work showed an elevated CR of 1.77 however, per the patient, that is her baseline. Patient's abdominal CT showed no acute p rocess. I explained my physical exam findings as well as all test results to the patient. I answered all questions asked by the patient. I explained to the patient that while the elevated CR is her baseline, she should receive IV fluid hydration. Patient stated that she did not want IV fluid hydration but rather just wanted her pain treated and to go home. I stressed the importance of the patient taking her medication as prescribed. I stressed the importance of the patient following up with her primary care provider. I stressed the importance of the patient returning to the emergency department immediately if her symptoms were to worsen or if she were to develop any dizziness, shortness of breath, difficulty breathing, chest pain, blurry vision, loss of vision, nausea, vomiting, abdominal pain, fever, chills, back pain, or any other complaints. Patient verbalized agreement and understanding with this treatment plan and discharge. Differential Diagnosis Differential Diagnoses: The differential diagnosis associated with the p resentation includes low back pain Lab Data MDM Lab Attestation statement: I reviewed the patient's lab results. 08/25/22 13:10 08/25/22 13:10 Labs: Lab Results 08/25/22 08/25/22 Range/Units 13:10 13:10 WBC 9.1 (4.8-10.8) X10*3/uL RBC 4.37 (4.20-5.50) X10*6/uL Hgb 12.2 (12.0-16.0) g/dl Hct 38.1 (37.0-47.0) % MCV 87.2 (80.0-98.0) fL MCH 27.9 (27.0-33.0) pg MCHC 32.0 (31.0-35.0) g/dl RDW 13.9 (11.0-16.0) % Plt Count 167 (160-400) X10*3/uL MPV 8.7 L (9.4-12.3) fL Immature Gran % (Auto) 0.4 (0.0-0.4) % Neut % (Auto) 76.1 H (45-73) % Lymph % (Auto) 14.6 L (20-40) % Arroyo % (Auto) 7.1 (2-11) % Eos % (Auto) 1.5 (0-4) % Baso % (Auto) 0.3 (0-2) % Lymph # (Auto) 1.3 (1.2-4.9) X10*3/uL [place] # (Auto) 0.6 (0.1-1.2) X10*3/uL Eos # (Auto) 0.1 (0.0-0.4) X10*3/uL Baso # (Auto) 0.0 (0.0-0.2) X10*3/uL Abs Immat Gran (auto) 0.04 H (0.00-0.03) X10*3/uL Absolute Neuts (auto) 6.9 (2.0-8.3) x10*3/uL Absolute Nucleated RBC 0.000 (0.0-0.012) X10*3/uL Nucleated RBC % (auto) 0.0 (0.0-0.2) /100WBC Sodium 144 (135-145) mmol/L Potassium 4.5 (3.3-5.1) mmol/L Chloride 105 (96-108) mmol/L Carbon Dioxide 26 (22-29) mmol/L Anion Gap 18 (12-20) BUN 74 H (9-16) mg/dL Creatinine 1.77 H (0.5-1.4) mg/dL Estim Creat Clear Calc 43.3 Estimated GFR 29 Random Glucose 143 H (60-115) mg/dL Calcium 8.8 (8.4-10.2) mg/dL Total Bilirubin 0.4 (0.0-1.0) mg/dL AST 12 (5-31) U/L ALT 8 (0-31) U/L Alkaline Phosphatase 65 (39-117) U/L Total Protein 6.9 (6.5-8.0) g/dL Albumin 4.0 (3.5-5.0) g/dL Radiology Impression Radiologist Impression: My interpretation is in agreement with the radiologist's impression of this imaging study. EXAMINATION: CT ABDOMEN AND PELVIS WITHOUT CONTRAST? CLINICAL INFORMATION: Left flank pain ? COMPARISON: CT abdomen and pelvis 04/19/2022? TECHNIQUE: Multidetector volumetric imaging was performed from the superior aspect of the liver through the pubic symphysis. Sagittal and coronal reformatted images were obtained on the technologist's workstation.? This CT examination was performed using dose optimization techniques as appropriate, variously including the following: *Automated exposure control *Adjustment of mA and/or kV according to patient size (this includes techniques or standardized protocols for targeted exams where dose is matched to indication/reason for exam; i.e. extremities or head) *Use of iterative reconstruction technique DLP: 1167 mGy-cm FINDINGS: LUNG BASES: The visualized lung bases are unremarkable.? LIVER, GALLBLADDER, AND BILIARY TREE: The liver is normal in size, shape, and attenuation. No focal hepatic lesion or biliary ductal dilatation is present. Status post cholecystectomy. PANCREAS: Unremarkable.? SPLEEN: Unremarkable.? ADRENAL GLANDS: Unremarkable.? KIDNEYS AND URETERS: No radiodense renal calculi. No hydronephrosis or appreciable renal lesion. Focal cortical scarring in the left upper pole noted. Mild symmetric bilateral perirenal fascial stranding, nonspecific finding.? BLADDER: Decompressed limiting assessment, but grossly unremarkable.? GASTROINTESTINAL TRACT: Sigmoid diverticulosis. No evidence of acute diverticulitis. Small to moderate amount of formed stool in the colon. No dilated bowel loops. No bowel wall thickening. Normal appendix. No ascites or free air.? ABDOMINAL WALL: Small fat-containing umbilical hernia.? LYMPH NODES: No lymphadenopathy. VASCULAR: Normal caliber abdominal aorta. Relatively extensive Monckeberg type vascular calcifications. PELVIC VISCERA: Gynecologic structures are grossly unremarkable, limited assessment.? OSSEOUS STRUCTURES: No acute fracture or suspicious osseous lesion. Mild multilevel spondylosis of the lower thoracic and lumbar spine.? CT/CT abdomen pelvis wo IV con IMPRESSION: 1.? No renal or ureteral calculi. No hydronephrosis. 2.? No acute intra-abdominal process identified. 3.? Sigmoid diverticulosis. No evidence of acute diverticulitis. Dictated By: Andriy Campbell Signed By: Electronically signed by Andriy?Adrian 08/25/22 1530 Discharge Plan Discharge Clinical Impression: Back pain Patient Disposition: Home, Self-Care Instructions: Back Pain (ED) Additional Instructions: Follow up with your primary care provider and a patient service specialist. Return to the emergency department immediately if your symptoms worsen or if you develop any dizziness, shortness of breath, difficulty breathing, chest pain, blurry vision, loss of vision, nausea, vomiting, abdominal pain, fever, chills, back pain, or any other complaints. Prescriptions: No Action gabapentin 400 mg capsule 400 mg PO BID@0900,1200 ipratropium-albuterol 0.5 mg-3 mg(2.5 mg base)/3 mL Solution For Nebulization 3 ml inhalation RQ4H WHILE AWAKE PRN (Reason: Shortness Of Breath/Wheezing) Qty: 1 0RF insulin lispro [Humalog U-100 Insulin] 100 unit/mL Solution See Protocol subcut QIDACHS Qty: 1 0RF Protocol: Insulin Correction Scale Less than or equal to 110 ---- Give (units): 0 111 to 150 Give (units): 0 151 to 200 Give (units): 2 201 to 250 Give (units): 4 251 to 300 Give (units): 6 301 to 350 Give (units): 8 Greater than 350 Give (units): 10 Call MD if Blood Glucose > : 350 Rx Instructions: sliding scale fluoxetine 40 mg capsule 40 mg PO DAILY metoprolol succinate 50 mg tablet extended release 24 hr 50 mg PO DAILY aspirin 81 mg tablet,delayed release (DR/EC) 81 mg PO DAILY simvastatin 20 mg tablet 20 mg PO BEDTIME omeprazole 20 mg capsule,delayed release(DR/EC) 20 mg PO BEDTIME Rx Instructions: PT TAKES BEDTIME albuterol sulfate [ProAir HFA] 90 mcg/actuation HFA aerosol inhaler 2 puff inhalation Q4H PRN (Reason: Dyspnea) fluticasone propionate [Flovent HFA] 110 mcg/actuation HFA aerosol inhaler 2 puff inhalation BID tizanidine 4 mg Tablet 4 mg PO BEDTIME isosorbide mononitrate 30 mg Tablet Extended Release 24 Hr 30 mg PO DAILY bumetanide 2 mg tablet 1 tab PO DAILY amlodipine 10 mg tablet 1 tab PO DAILY cholecalciferol (vitamin D3) 25 mcg (1,000 unit) capsule 1 cap PO DAILY meclizine 25 mg Tablet 25 mg PO TID PRN (Reason: Dizziness) gabapentin 400 mg capsule 800 mg PO BEDTIME pregabalin 100 mg capsule 1 cap PO BID melatonin 3 mg tablet 2 tab PO BEDTIME PRN (Reason: insomnia) polyethylene glycol 3350 17 gram Powder In Packet 17 g PO DAILY Qty: 30 0RF docusate sodium 100 mg Capsule 100 mg PO DAILY PRN (Reason: Constipation) Qty: 30 0RF insulin glargine [Lantus U-100 Insulin] 100 unit/mL solution 50 unit subcut BEDTIME Qty: 1 0RF oxycodone 5 mg Tablet 5 mg PO Q4H PRN (Reason: Pain, Moderate (Pain Scale 4-6) Qty: 10 0RF Rx Instructions: Partial Fill upon patient request. furosemide 20 mg tablet 1 tab PO DAILY Hold Instructions: Resume on 04/28/22. haloperidol 2 mg tablet 1 tab PO BEDTIME PRN (Reason: Agitation) Rx Instructions: do not give is oversedated clonidine HCl 0.1 mg Tablet 0.1 mg PO TID PRN (Reason: hyperarousal, anxiety, panic) Qty: 90 0RF Protocol: Hold for SBP< HOLD for SBP < : 90 hydralazine 25 mg Tablet 25 mg PO BID Qty: 60 0RF Protocol: Hold for SBP< HOLD for SBP < : 90 spironolactone 25 mg Tablet 25 mg PO DAILY Qty: 30 0RF Protocol: Hold for SBP< HOLD for SBP < : 90 bumetanide 1 mg Tablet 1 mg PO BEDTIME Qty: 30 0RF Protocol: Hold for SBP< HOLD for SBP < : 90 risperidone 1 mg tablet 1 tab PO BID (DME) FreeStyle Lite Strips Strip See Rx Instructions .ROUTE BID Qty: 10 Rx Instructions: As directed (DME) lancets [FreeStyle Lancets] 28 gauge misc See Rx Instructions .ROUTE QID Qty: 100 Rx Instructions: As directed (DME) insulin syringe-needle U-100 [BD Insulin Syringe Ultra-Fine] 1 mL 31 gauge x 5/16 syringe See Rx Instructions .ROUTE QID Qty: 10 Rx Instructions: As directed Referrals: [facility] [Provider Group] (Call to establish and follow up with a patient service specialist. ) Tavo Huber MD [Primary Care Provider] - Interventions: ED Discharge Assessment Last Done: 08/25/22 15:59 Print Language: Luxembourgish
--- NOTE | 2022-08-25 12:57 | PC.NURSE ---
pt to exam room via WC, able to stand without assistance, pivot, and sit upright under own power on the bed.
[2022-08-25 13:15] LABS: MANUAL DIFF FLAG NO
[2022-08-25 13:17] LABS: Basophils Percent Auto 0.3 % (0-2); Eosinophils Absolute Auto 0.1 X10*3/uL (0.0-0.4); Eosinophils Percent Auto 1.5 % (0-4); Hematocrit 38.1 % (37.0-47.0); Hemoglobin 12.2 g/dl (12.0-16.0); Imm Gran Abs Auto 0.04 X10*3/uL (0.00-0.03); Imm Gran Pct Auto 0.4 % (0.0-0.4); Lymphocytes Absolute Auto 1.3 X10*3/uL (1.2-4.9); Lymphocytes Percent Auto 14.6 % (20-40); Mean Corpuscular Hemoglobin 27.9 pg (27.0-33.0); Mean Corpuscular Volume 87.2 fL (80.0-98.0); Mean Platelet Volume 8.7 fL (9.4-12.3); Monocytes Absolute Auto 0.6 X10*3/uL (0.1-1.2); Monocytes Percent Auto 7.1 % (2-11); Neutrophils Absolute Auto 6.9 x10*3/uL (2.0-8.3); Neutrophils Percent Auto 76.1 % (45-73); Platelet Count 167 X10*3/uL (160-400); Red Blood Count 4.37 X10*6/uL (4.20-5.50); Red Cell Distribution Width 13.9 % (11.0-16.0); White Blood Count 9.1 X10*3/uL (4.8-10.8)
[2022-08-25 13:34] LABS: Alanine Aminotransferase 8 U/L (0-31); Alkaline Phosphatase 65 U/L (39-117); Anion Gap 18 (12-20); Aspartate Amino Transferase 12 U/L (5-31); Bilirubin Total 0.4 mg/dL (0.0-1.0); Blood Urea Nitrogen 74 mg/dL (9-16); Calcium 8.8 mg/dL (8.4-10.2); Carbon Dioxide 26 mmol/L (22-29); Chloride 105 mmol/L (96-108); Creatinine Clr Calc Pharmacy 43.3; Estimated Glomerular Filt Rate 29; Glucose Random 143 mg/dL (60-115); Potassium 4.5 mmol/L (3.3-5.1); Sodium 144 mmol/L (135-145); Total Protein 6.9 g/dL (6.5-8.0)
[2022-08-25] MEDS: oxyCODONE HCl Immed Release 5 MG TABLET 10 MG PO (15:33)
[2022-08-25] MEDS: Ketorolac Tromethamine 15 MG/ML VIAL IM (15:33)
== END 2022-08-25 16:21 | disposition home or self-care (01) ==
PROVIDERS: Physician Assistant Medical; Emergency Provider Emergency Medicine; PCP Internal Medicine
DX: M54.50 Low back pain, unspecified (principal); E11.9 Type 2 diabetes mellitus without complications; I10 Essential (primary) hypertension; E78.5 Hyperlipidemia, unspecified; F12.90 Cannabis use, unspecified, uncomplicated; E66.9 Obesity, unspecified; Z68.42 Body mass index [BMI] 45.0-49.9, adult; Z87.891 Personal history of nicotine dependence; Z79.899 Other long term (current) drug therapy; Z79.4 Long term (current) use of insulin; Z79.82 Long term (current) use of aspirin; Z79.02 Long term (current) use of antithrombotics/antiplatelets
CPT/HCPCS: 36415; 74176; 80053; 85025; 96372; 99283; 99284; J1885

== ENCOUNTER 2022-09-08 11:41 | Inpatient (IN) | payer OTHER, MEDICAID, SELFPAY ==
--- NOTE | ~2022-09-08 | US_ITS ---
EXAMINATION: US VENOUS ULTRASOUND WITH DOPPLER LOWER EXTREMITY, BILATERAL CLINICAL INFORMATION: Bilateral lower extremity edema COMPARISON: Previous exam March 2022 TECHNIQUE: Ultrasound of the deep veins is performed from the hip to the calf with compression sonography and color and pulse Doppler assessment. Spectral analysis with color-flow imaging is performed. Exam is limited due to patient difficulty tolerating the exam and discomfort. Patient could not tolerate compression. FINDINGS: The common femoral, superficial femoral, profunda and popliteal veins are patent. Calf veins are not well visualized. There is bilateral lower leg edema, right greater than left. There is no Alcaraz's cyst. US/US venous duplex LE BI IMPRESSION: Limited but negative exam.
--- NOTE | ~2022-09-08 | NM_ITS ---
EXAMINATION: NM RADIONUCLIDE WHITE BLOOD CELL STUDY CLINICAL INFORMATION: Left hip pain, abnormal MRI lumbar spine, rule out osteomyelitis. COMPARISON: No previous labeled white cell study is available for comparison. Radiographs of the chest dated 09/08/2022, CT scans of the abdomen and pelvis dated 08/25/2022 and of the chest dated 04/19/2022 are also available for comparison. TECHNIQUE: Initial rapid sequence images in the anterior and posterior projections of the hips and subsequent blood pool images were obtained. Multiple gamma scintillation camera images of the whole-body with multiple spot views of the pelvis and hips were then performed 3.25 hours following the intravenous administration of 15 mCi Tc-99m Ceretec labeled autologous white cells. FINDINGS: Initial rapid sequence images show bilaterally symmetrical flow to the hips and visualized vascular structures with no foci of abnormal flow visualized. Blood pool images obtained immediately following the flow images show no foci of abnormal blood pool activity. Intense liver and spleen activity is visualized at this time. Delayed images of the whole body show mild uptake in loops of bowel, likely small bowel in the right lower quadrant of the abdomen. No other foci of abnormal activity are suggested. All the other activity appears physiological. NM/NM white blood scan IMPRESSION: 1. Uptake in loops of small bowel is nonspecific but is suspicious for inflammatory bowel disease. Clinical correlation is recommended. There are no abnormalities on the recent 08/25/2022 CT scan of the abdomen and pelvis to suggest any corresponding abnormalities. Bowel uptake of labeled white cells can be physiological. 2. No other abnormalities suspicious for foci of active infection are noted. The lumbar spine region appears unremarkable.
--- NOTE | ~2022-09-08 | XR_ITS ---
EXAMINATION: XR CHEST CLINICAL INFORMATION: Shortness of breath COMPARISON: Previous chest x-ray March 2022 TECHNIQUE: Frontal view of the chest was obtained. FINDINGS: The cardiac silhouette is enlarged but stable. Hilar and mediastinal contours are unremarkable. The lungs are clear. There is no pleural effusion or pneumothorax. There are degenerative changes of the spine. XR/XR chest 1V IMPRESSION: Stable enlargement of the cardiac silhouette.
[2022-09-08 11:45] VITALS: BP 131/67; BP 142/88; PULSE 84; PULSE 86; RESP 18; TEMP 36.5; O2SAT 96; BMI 54.8
[2022-09-08 11:54] VITALS: RESP 18
--- NOTE | 2022-09-08 12:27 | ECG_ITS ---
Test Reason : SOB Blood Pressure : / mmHG Vent. Rate : 079 BPM Atrial Rate : 079 BPM P-R Int : 184 ms QRS Dur : 108 ms QT Int : 426 ms P-R-T Axes : 059 027 064 degrees QTc Int : 488 ms Normal sinus rhythm Normal ECG When compared with ECG of 19-APR-2022 22:43, QRS axis Shifted left Referred By: Marian Meraz Electronically Signed By:LUDA VICTORIA
[2022-09-08 12:53] LABS: Basophils Percent Auto 0.4 % (0-2); Eosinophils Absolute Auto 0.2 X10*3/uL (0.0-0.4); Eosinophils Percent Auto 1.6 % (0-4); Hematocrit 35.3 % (37.0-47.0); Hemoglobin 11.1 g/dl (12.0-16.0); Imm Gran Abs Auto 0.05 X10*3/uL (0.00-0.03); Imm Gran Pct Auto 0.5 % (0.0-0.4); Lymphocytes Percent Auto 9.7 % (20-40); MANUAL DIFF FLAG NO; Mean Corpuscular HGB Conc 31.4 g/dl (31.0-35.0); Mean Corpuscular Hemoglobin 27.7 pg (27.0-33.0); Mean Platelet Volume 8.9 fL (9.4-12.3); Monocytes Absolute Auto 0.9 X10*3/uL (0.1-1.2); Monocytes Percent Auto 8.6 % (2-11); Neutrophils Absolute Auto 7.9 x10*3/uL (2.0-8.3); Neutrophils Percent Auto 79.2 % (45-73); Platelet Count 189 X10*3/uL (160-400); Red Blood Count 4.01 X10*6/uL (4.20-5.50); Red Cell Distribution Width 13.8 % (11.0-16.0)
[2022-09-08 13:12] LABS: Lactic Acid 1.2 mmol/L (0.5-2.0)
[2022-09-08 13:16] LABS: COVID-19 Test Negative (Negative); IDNOW Serial# 9DB6401D
[2022-09-08 13:20] LABS: B Type Natriuretic Peptide 63 pg/mL (<100)
[2022-09-08 13:24] LABS: Carbon Dioxide 24 mmol/L (22-29); Troponin-I High Sensitivity 5.6 ng/L (<3.5-17.0)
[2022-09-08 13:25] LABS: Alanine Aminotransferase 9 U/L (0-31); Albumin Level 3.8 g/dL (3.5-5.0); Alkaline Phosphatase 65 U/L (39-117); Anion Gap 20 (12-20); Aspartate Amino Transferase 14 U/L (5-31); Bilirubin Direct < 0.2 mg/dL (0.0-0.5); Bilirubin Total 0.4 mg/dL (0.0-1.0); Blood Urea Nitrogen 96 mg/dL (9-16); Calcium 8.6 mg/dL (8.4-10.2); Chloride 99 mmol/L (96-108); Creatinine Clr Calc Pharmacy 39.8; Estimated Glomerular Filt Rate 26; Glucose Random 209 mg/dL (60-115); Lipase 7 U/L (8-78); Magnesium 2.3 mg/dL (1.6-2.6); Potassium 5.1 mmol/L (3.3-5.1); Sodium 138 mmol/L (135-145); Total Protein 7.1 g/dL (6.5-8.0)
--- NOTE | 2022-09-08 13:58 | ED_ITS ---
HPI - General Adult General Chief complaint: General Medical Stated complaint: Leg pain per EMS Time Seen by Provider: 09/08/22 12:00 Source: patient and EMS Mode of arrival: EMS History of Present Illness HPI narrative: 62-year-old female with a past medical history of CHF, CKD, COPD, depression, diabetes, HLD, HTN, MDD, DANIEL, presenting to the ED via EMS complaining of bilateral LE pitting edema worsening over the past week with associated SOB. Also reports acute on chronic left-sided low back pain radiating down left lower extremity. Patient admits was seen and treated in our ED on 08/25 for similar symptoms, pain the same however worsening. Reports compliance with home medications. Denies chest pain, abdominal pain, nausea/vomiting, hematuria/dysuria, urinary incontinence/retention, fever, falls Onset (ago): week(s) Related Data Home Medications Medication Instructions Recorded Confirmed albuterol sulfate 90 mcg/actuation 2 puff inhalation Q4H PRN Dyspnea 11/23/20 09/08/22 aerosol inhaler (ProAir HFA) aspirin 81 mg tablet,delayed 81 mg PO DAILY 11/23/20 09/08/22 release fluoxetine 40 mg capsule 40 mg PO DAILY 11/23/20 09/08/22 fluticasone propionate 110 2 puff inhalation BID 11/23/20 09/08/22 mcg/actuation HFA aerosol inhaler (Flovent HFA) metoprolol succinate 50 mg 50 mg PO DAILY 11/23/20 09/08/22 tablet,extended release 24 hr simvastatin 20 mg tablet 20 mg PO BEDTIME 11/23/20 09/08/22 isosorbide mononitrate 30 mg 30 mg PO DAILY 12/11/20 09/08/22 tablet,extended release 24 hr tizanidine 4 mg tablet 4 mg PO BEDTIME 12/11/20 09/08/22 amlodipine 10 mg tablet 1 tab PO DAILY 06/07/21 09/08/22 bumetanide 2 mg tablet 1 tab PO DAILY 06/07/21 09/08/22 cholecalciferol (vitamin D3) 25 1 cap PO DAILY 06/07/21 09/08/22 mcg (1,000 unit) capsule meclizine 25 mg tablet 25 mg PO TID PRN Dizziness 06/07/21 09/08/22 risperidone 1 mg tablet 1 tab PO BID 04/20/22 09/08/22 blood sugar diagnostic (FreeStyle #10 ea 06/25/22 06/25/22 Lite Strips) insulin syringe-needle U-100 1 mL #10 ea 06/25/22 06/25/22 31 gauge x 5/16 (BD Insulin Syringe Ultra-Fine) lancets 28 gauge (FreeStyle #100 ea 06/25/22 06/25/22 Lancets) clotrimazole 1 % topical cream 1 appl topical BID 09/08/22 09/08/22 gabapentin 400 mg capsule 400 mg PO TID 09/08/22 09/08/22 insulin glargine 100 unit/mL 50 unit subcut BID 09/08/22 09/08/22 subcutaneous solution (Lantus U-100 Insulin) nystatin 100,000 unit/gram topical 1 appl topical BID 09/08/22 09/08/22 powder silver sulfadiazine 1 % topical 1 appl topical BID 09/08/22 09/08/22 cream Previous Rx's Medication Instructions Recorded insulin lispro 100 unit/mL See Protocol subcut QIDACHS #1 mL 01/16/21 subcutaneous solution (Humalog U-100 Insulin) clonidine HCl 0.1 mg tablet 0.1 mg PO TID PRN hyperarousal, 04/01/22 anxiety, panic #90 tabs bumetanide 1 mg tablet 1 mg PO BEDTIME #30 tabs 04/08/22 hydralazine 25 mg tablet 25 mg PO BID #60 tabs 04/08/22 spironolactone 25 mg tablet 25 mg PO DAILY #30 tabs 04/08/22 docusate sodium 100 mg capsule 100 mg PO DAILY PRN Constipation 04/26/22 #30 caps blood-glucose meter (FreeStyle #1 ea 09/02/22 Lite Meter kit) Allergies Allergy/AdvReac Type Severity Reaction Status Date / Time ibuprofen Allergy Intermediate vommiting, Verified 06/25/22 10:50 itching acetaminophen [Tylenol] Allergy Mild Unknown Verified 06/25/22 10:50 morphine AdvReac Intermediate vomiting Verified 06/25/22 10:50 Review of Systems Review of Systems: Constitutional: No Fever, No Chills, No Fatigue, No Malaise ENT/Mouth: No Ear Pain, No Nasal Congestion, No Sinus Pain, No Hoarseness, No sore throat, No Rhinorrhea, No Swallowing Difficulty Eyes: No Eye Pain, No Swelling, No Redness, No Vision Changes Cardiovascular: No Chest Pain, + SOB, No Dyspnea on Exertion, + Orthopnea, No Edema, No Palpitations Respiratory: No Cough, No Sputum, No Dyspnea Gastrointestinal: No Nausea, No Vomiting, No Diarrhea, No Constipation, No Abdominal pain Genitourinary: No Dysuria, No Urinary Frequency, No Hematuria, No Urinary Incontinence/retention, No Flank Pain Musculoskeletal: No joint pain, No Myalgias, No Joint Swelling Skin: No Skin Lesions, No rash Neuro: No Weakness, No Numbness, No Headache Yes all other systems are reviewed and are negative Constitutional: Constitutional: Reports as per [facility] Past Medical History Attestation statement: The following information was validated with the patient. Medical History Abdominal pain Acute on chronic combined systolic and diastolic CHF (congestive heart failure) Adjustment disorder with mixed anxiety and depressed mood FELICIA (acute kidney injury) Asthma Cellulitis of right lower extremity CHF exacerbation Chronic pain Chronic respiratory failure with hypoxia CKD (chronic kidney disease) stage 3, GFR 30-59 ml/min Congestive heart failure Constipation COPD (chronic obstructive pulmonary disease) Decubitus ulcer Depression Diabetes Diabetic neuropathy, painful High cholesterol Hyperglycemia due to diabetes mellitus Hypertension Hypoxia MDD (major depressive disorder), recurrent episode, moderate Morbid obesity NICM (nonischemic cardiomyopathy) Obesity hypoventilation syndrome DANIEL (obstructive sleep apnea) Panic disorder Stasis dermatitis of both legs Stercoral colitis Uncontrolled type 2 diabetes mellitus with hyperglycemia Surgical History Hx of cholecystectomy Family History Family History Mother HTN (hypertension) Diabetes CAD (coronary artery disease) Father HTN (hypertension) Diabetes CAD (coronary artery disease) Maternal Grandmother CAD (coronary artery disease) Social History Social History Household Members: Unknown / Unable to assess Household Members Other:: GRANDSON Housing: House 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 Do you presently have visiting nurse or other home services: Yes ([facility]idan) Alcohol intake: unknown Patient Tobacco Use Status: Former Tobacco user Quit Date: 1999 Tobacco use type: Cigarette Years Smoked: 38 Smoked in Last 30 Days: Yes Second Hand Smoke Exposure: No Use of substances other than those prescribed or required for medical reasons: Unknown Substance Use Type: Marijuana Advance Directives: Yes Advance Directives on File: Yes Advance Directives Date on File: 12/19/20 Patient : No service: No Current occupational status: disabled Physical Exam ED Vital Signs: Vital Signs - 24 hr 09/08/22 11:45 09/08/22 11:54 09/08/22 14:21 Temperature 97.7 F 97.6 F Pulse Rate 84 79 Respiratory Rate 18 18 16 Blood Pressure 131/67 121/54 L Pulse Oximetry 96 94 Oxygen Delivery Method Room Air Room Air BMI result Body Mass Index 54.8 Const General: cooperative, healthy appearing and no acute distress Orientation/consciousness: patient oriented x3 Limitations: no limitations HENMT Head: Yes normal to inspection and Yes atraumatic Ears: hearing grossly normal bilaterally General nose exam: Normal external nose present Face and sinus: Yes normal facial exam Eyes General: appearance normal, both eyes and all related structures EOM: EOMs intact bilaterally Neck Neck: Yes normal visual inspection and Yes no meningeal signs Resp Effort & Inspection: normal respiratory effort and no respiratory distress Auscultation: diminished lung sounds bilateral throughout Cardio Rate: regular rate Heart sounds: S1 normal heart sound present and S2 normal heart sound present GI Inspection: Yes normal to inspection Palpation (GI): Soft to palpation, nontender, no guarding and not rigid General: Yes no CVA tenderness Back/Spine/Pelvis Other: No midline thoracic/lumbar spinous tenderness/step-off or deformity. + left- sided lower lumbar MSK tenderness to palpation reproducing subjective complaint. No erythema. In a appropriately healing small decubitus ulcer noted without surrounding cellulitis Back: no CVA tenderness Skin Rashes: no rashes Wounds: no wounds Neuro Other: Strength intact throughout. No saddle anesthesia. Sensation intact to light touch. Neurovascular intact distally General: patient oriented x3, tone normal, moves all extremities, no meningeal signs and no focal motor deficits Extrem Other: Please refer to image of of a bilateral LE pitting edema with chronic venous stasis changes and overlying erythema/cellulitis with warmth. NV intact General: Yes edema (+4 pitting bilaterally ) Course Course Course Narrative: -[id number]-- no leukocytosis. H&H stable. Acute on chronic CKD with a BUN of 96 and creatinine of 1.98 > likely from fluid overload -troponin 5.6 > will obtain 3 hour repeat. BNP 63. XR chest 1V IMPRESSION: Stable enlargement of the cardiac silhouette. > given 1 mg IV Bumex and IV Rocephin for cellulitis. Will obtain venous duplex ultrasound bilaterally to rule out DVT although low concern US venous duplex LE BI IMPRESSION: Limited but negative exam. >> plan to admit for further management Medications Administered Discontinued Medications Generic Name Dose Route Start Last Admin Trade Name Freq PRN Reason Stop Dose Admin Bumetanide 1 mg 09/08/22 13:52 09/08/22 14:28 Bumetanide 1 Mg/4 Ml Vial IVPUSH 09/08/22 13:53 1 mg ONCE ONE Administration Protocol Ceftriaxone Sodium 1 gm/ 50 mls @ 100 mls/hr 09/08/22 13:53 09/08/22 15:12 Sodium Chloride IV 09/08/22 14:22 Infused ONCE ONE Infusion Medical Decision Making Medical Decision Making MDM Narrative: 62-year-old female with a past medical history of CHF, CKD, COPD, depression, diabetes, HLD, HTN, MDD, DANIEL, presenting to the ED via EMS complaining of bilateral LE pitting edema worsening over the past week with associated SOB. Also reports acute on chronic left-sided low back pain radiating down left lower extremity. On exam vital signs stable, NAD, diminished lung sounds throughout with bilateral 4+ LE pitting edema with overlying cellulitis. Reproducible MSK back pain, no red flag symptoms or midline spinous tenderness throughout. Concern for CHF vs cellulitis vs MSK pain/strain/sciatica vs acute on chronic pedal edema. Lower suspicion for DVT/PE, ACS, cauda equina, cord compression, or epidural abscess. Lower suspicion for renal stone/pyelo Plan: EKG, labs, CXR, UA, COVID-19/influenza testing, admission Please refer to course for remaining clinical decision making, interpretation of labs/imaging results, and discussions with consultants and/or family members. Differential Diagnosis Differential Diagnoses: The differential diagnosis associated with the presentation includes As above Admission/Observation Consideration of admission/observation: Escalation of care including admission/observation considered Consult Healthcare Provider Management of the patient was discussed with: Hospitalist Lab Data [facility] Lab Attestation statement: I reviewed the patient's lab results. 09/08/22 12:44 09/08/22 12:44 Labs: Lab Results 09/08/22 09/08/22 09/08/22 Range/Units 12:44 12:44 12:44 WBC 10.0 (4.8-10.8) X10*3/uL RBC 4.01 L (4.20-5.50) X10*6/uL Hgb 11.1 L (12.0-16.0) g/dl Hct 35.3 L (37.0-47.0) % MCV 88.0 (80.0-98.0) fL MCH 27.7 (27.0-33.0) pg MCHC 31.4 (31.0-35.0) g/dl RDW 13.8 (11.0-16.0) % Plt Count 189 (160-400) X10*3/uL MPV 8.9 L (9.4-12.3) fL Immature Gran % (Auto) 0.5 H (0.0-0.4) % Neut % (Auto) 79.2 H (45-73) % Lymph % (Auto) 9.7 L (20-40) % [place] % (Auto) 8.6 (2-11) % Eos % (Auto) 1.6 (0-4) % Baso % (Auto) 0.4 (0-2) % Lymph # (Auto) 1.0 L (1.2-4.9) X10*3/uL [place] # (Auto) 0.9 (0.1-1.2) X10*3/uL Eos # (Auto) 0.2 (0.0-0.4) X10*3/uL Baso # (Auto) 0.0 (0.0-0.2) X10*3/uL Abs Immat Gran (auto) 0.05 H (0.00-0.03) X10*3/uL Absolute Neuts (auto) 7.9 (2.0-8.3) x10*3/uL Absolute Nucleated RBC 0.000 (0.0-0.012) X10*3/uL Nucleated RBC % (auto) 0.0 (0.0-0.2) /100WBC PT (10.0-13.1) SEC INR (0.9-1.1) Sodium 138 (135-145) mmol/L Potassium 5.1 (3.3-5.1) mmol/L Chloride 99 (96-108) mmol/L Carbon Dioxide 24 (22-29) mmol/L Anion Gap 20 (12-20) BUN 96 H (9-16) mg/dL Creatinine 1.98 H (0.5-1.4) mg/dL Estim Creat Clear Calc 39.8 Estimated GFR 26 Random Glucose 209 H (60-115) mg/dL Lactic Acid 1.2 (0.5-2.0) mmol/L Calcium 8.6 (8.4-10.2) mg/dL Magnesium 2.3 (1.6-2.6) mg/dL Total Bilirubin 0.4 (0.0-1.0) mg/dL Direct Bilirubin < 0.2 (0.0-0.5) mg/dL AST 14 (5-31) U/L ALT 9 (0-31) U/L Alkaline Phosphatase 65 (39-117) U/L Troponin I High Sens (<3.5-17.0) ng/L B-Natriuretic Peptide (<100) pg/mL Total Protein 7.1 (6.5-8.0) g/dL Albumin 3.8 (3.5-5.0) g/dL Lipase 7 L (8-78) U/L COVID-19 ([facility]) (Negative) COVID-19 Clin Com 09/08/22 09/08/22 09/08/22 Range/Units 12:44 12:44 12:44 WBC (4.8-10.8) X10*3/uL RBC (4.20-5.50) X10*6/uL Hgb (12.0-16.0) g/dl Hct (37.0-47.0) % MCV (80.0-98.0) fL MCH (27.0-33.0) pg MCHC (31.0-35.0) g/dl RDW (11.0-16.0) % Plt Count (160-400) X10*3/uL MPV (9.4-12.3) fL Immature Gran % (Auto) (0.0-0.4) % Neut % (Auto) (45-73) % Lymph % (Auto) (20-40) % [place] % (Auto) (2-11) % Eos % (Auto) (0-4) % Baso % (Auto) (0-2) % Lymph # (Auto) (1.2-4.9) X10*3/uL [place] # (Auto) (0.1-1.2) X10*3/uL Eos # (Auto) (0.0-0.4) X10*3/uL Baso # (Auto) (0.0-0.2) X10*3/uL Abs Immat Gran (auto) (0.00-0.03) X10*3/uL Absolute Neuts (auto) (2.0-8.3) x10*3/uL Absolute Nucleated RBC (0.0-0.012) X10*3/uL Nucleated RBC % (auto) (0.0-0.2) /100WBC PT (10.0-13.1) SEC INR (0.9-1.1) Sodium (135-145) mmol/L Potassium (3.3-5.1) mmol/L Chloride (96-108) mmol/L Carbon Dioxide (22-29) mmol/L Anion Gap (12-20) BUN (9-16) mg/dL Creatinine (0.5-1.4) mg/dL Estim Creat Clear Calc Estimated GFR Random Glucose (60-115) mg/dL Lactic Acid (0.5-2.0) mmol/L Calcium (8.4-10.2) mg/dL Magnesium (1.6-2.6) mg/dL Total Bilirubin (0.0-1.0) mg/dL Direct Bilirubin (0.0-0.5) mg/dL AST (5-31) U/L ALT (0-31) U/L Alkaline Phosphatase (39-117) U/L Troponin I High Sens 5.6 (<3.5-17.0) ng/L B-Natriuretic Peptide 63 (<100) pg/mL Total Protein (6.5-8.0) g/dL Albumin (3.5-5.0) g/dL Lipase (8-78) U/L COVID-19 ([facility]) Negative (Negative) COVID-19 Clin Com See Note 09/08/22 09/08/22 Range/Units 13:16 16:12 WBC (4.8-10.8) X10*3/uL RBC (4.20-5.50) X10*6/uL Hgb (12.0-16.0) g/dl Hct (37.0-47.0) % MCV (80.0-98.0) fL MCH (27.0-33.0) pg MCHC (31.0-35.0) g/dl RDW (11.0-16.0) % Plt Count (160-400) X10*3/uL MPV (9.4-12.3) fL Immature Gran % (Auto) (0.0-0.4) % Neut % (Auto) (45-73) % Lymph % (Auto) (20-40) % [place] % (Auto) (2-11) % Eos % (Auto) (0-4) % Baso % (Auto) (0-2) % Lymph # (Auto) (1.2-4.9) X10*3/uL [place] # (Auto) (0.1-1.2) X10*3/uL Eos # (Auto) (0.0-0.4) X10*3/uL Baso # (Auto) (0.0-0.2) X10*3/uL Abs Immat Gran (auto) (0.00-0.03) X10*3/uL Absolute Neuts (auto) (2.0-8.3) x10*3/uL Absolute Nucleated RBC (0.0-0.012) X10*3/uL Nucleated RBC % (auto) (0.0-0.2) /100WBC PT 9.9 L (10.0-13.1) SEC INR 0.9 (0.9-1.1) Sodium (135-145) mmol/L Potassium (3.3-5.1) mmol/L Chloride (96-108) mmol/L Carbon Dioxide (22-29) mmol/L Anion Gap (12-20) BUN (9-16) mg/dL Creatinine (0.5-1.4) mg/dL Estim Creat Clear Calc Estimated GFR Random Glucose (60-115) mg/dL Lactic Acid (0.5-2.0) mmol/L Calcium (8.4-10.2) mg/dL Magnesium (1.6-2.6) mg/dL Total Bilirubin (0.0-1.0) mg/dL Direct Bilirubin (0.0-0.5) mg/dL AST (5-31) U/L ALT (0-31) U/L Alkaline Phosphatase (39-117) U/L Troponin I High Sens 5.6 (<3.5-17.0) ng/L B-Natriuretic Peptide (<100) pg/mL Total Protein (6.5-8.0) g/dL Albumin (3.5-5.0) g/dL Lipase (8-78) U/L COVID-19 ([facility]) (Negative) COVID-19 Clin Com Independent Interpretation I performed an independent interpretation of an: EKG Interpretation: My interpretation EKG is normal sinus rhythm at a rate of 79. QTC 488. No STEMI. Nonischemic. Artifact present Radiology Impression Discussion of test interpretation with radiology: I have reviewed the radiologist's reading. External Record Review External record reviewed: Outpatient record, Prior outpatient labs and Prior outpatient radiology Discharge Plan Discharge Clinical Impression: Acute kidney injury superimposed on CKD, Back pain, Bilateral lower leg cellulitis, Pitting edema Patient Disposition: Admitted As Inpatient
[2022-09-08 14:21] VITALS: BP 121/54; PULSE 79; RESP 16; TEMP 36.4; O2SAT 94
[2022-09-08] MEDS: Bumetanide 1 MG/4 ML VIAL IVPUSH (14:28)
[2022-09-08] MEDS: cefTRIAXone sodium 1 GM in 0.9 % Sodium Chloride 50 ML IV (14:29)
[2022-09-08 15:24] LABS: INTERNATIONAL NORM RATIO 0.9 (0.9-1.1); Prothrombin Time 9.9 SEC (10.0-13.1)
--- NOTE | 2022-09-08 16:21 | PHA.MEDREC ---
MED REC COMPLETE, NO ISSUES Pharmacy Consult ? Medication Reconciliation Pharmacy has completed the medication reconciliation.
--- NOTE | 2022-09-08 16:34 | PC.NURSE ---
Pt resting on stretcher comfortably at this time. Denies increase in pain. Awaiting second trop at this time
[2022-09-08 16:35] LABS: Troponin-I High Sensitivity 5.6 ng/L (<3.5-17.0)
--- NOTE | 2022-09-08 16:59 | PM.IMHP ---
History of Present Illness Date of Service: 09/08/22 Attending physician on admission: Davion Mccallum Chief Complaint: Left hip pain/lower extremity swelling 62-year-old female with past medical history of obstructive sleep apnea, obesity hypoventilation syndrome, congestive heart failure with reduced EF, chronic kidney disease stage IIIA, history of COPD/asthma , presented to [facility] due to left hip pain with difficulty in ambulation of 2 weeks duration, associated with bilateral lower extremity swelling, patient denies fall, no trauma, complain of pain with movement and walking, she was seen at [facility] on August 25 with similar symptoms at that time a CT abdomen and pelvis showed no osseous abnormality according to patient she had an MRI left hip done at [facility] ordered per Dr. Huber 1 week ago but do not have the report, since pain was getting worse she came to ED, she denies associated shortness of breath, no orthopnea, no PND, denies chest pain, no palpitation, no shortness of breath denies nausea vomiting abdominal pain, no fevers, no chills, labs showed normal electrolytes, creatinine 1.98 with baseline creatinine around 1.7 blood sugars stable normal liver function, normal protein and albumin, normal recent TSH Doppler study lower extremity showed no DVT, chest x-ray showed no infiltrate, no evidence of CHF BNP of 63 normal troponins patient is being admitted to [facility] due to intractable left hip pain with difficulty in ambulation as well as bilateral lower extremity edema. Review of Systems Review of Systems: General no headache, no dizziness, 7 no fever chills. CVS no chest pain, no palpitation. Respiratory no cough, no sob Gastrointestinal no nausea, no vomiting, no abdominal pain Yes all other systems are reviewed and are negative [facility] Medical History Abdominal pain Acute on chronic combined systolic and diastolic CHF (congestive heart failure) Adjustment disorder with mixed anxiety and depressed mood FELICIA (acute kidney injury) Asthma Cellulitis of right lower extremity CHF exacerbation Chronic pain Chronic respiratory failure with hypoxia CKD (chronic kidney disease) stage 3, GFR 30-59 ml/min Congestive heart failure Constipation COPD (chronic obstructive pulmonary disease) Decubitus ulcer Depression Diabetes Diabetic neuropathy, painful High cholesterol Hyperglycemia due to diabetes mellitus Hypertension Hypoxia MDD (major depressive disorder), recurrent episode, moderate Morbid obesity NICM (nonischemic cardiomyopathy) Obesity hypoventilation syndrome DANIEL (obstructive sleep apnea) Panic disorder Stasis dermatitis of both legs Stercoral colitis Uncontrolled type 2 diabetes mellitus with hyperglycemia Family History Mother HTN (hypertension) Diabetes CAD (coronary artery disease) Father HTN (hypertension) Diabetes CAD (coronary artery disease) Maternal Grandmother CAD (coronary artery disease) Surgical History Hx of cholecystectomy Social History Household Members: Unknown / Unable to assess Household Members Other:: GRANDSON Housing: House Housing Other:: with 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 Do you presently have visiting nurse or other home services: Yes (Aidan) Alcohol intake: unknown Patient Tobacco Use Status: Former Tobacco user Quit Date: 1999 Tobacco use type: Cigarette Years Smoked: 38 Smoked in Last 30 Days: Yes Second Hand Smoke Exposure: No Use of substances other than those prescribed or required for medical reasons: Unknown Substance Use Type: Marijuana Advance Directives: Yes Advance Directives on File: Yes Advance Directives Date on File: 12/19/20 Patient : No service: No Current occupational status: disabled Meds Allergies Allergy/AdvReac Type Severity Reaction Status Date / Time ibuprofen Allergy Intermediate vommiting, Verified 06/25/22 10:50 itching acetaminophen [Tylenol] Allergy Mild Unknown Verified 06/25/22 10:50 morphine AdvReac Intermediate vomiting Verified 06/25/22 10:50 Active Medications: Current Medications Albuterol Sulfate (Albuterol Sulfate 90 Mcg 8 Gm Inhaler) 2 puff INHALE Q4H PRN PRN Reason: Dyspnea Aspirin (Aspirin Enteric Coated 81 Mg Tablet.Dr) 81 mg PO DAILY HI Benzonatate (Benzonatate 100 Mg Capsule) 100 mg PO TID PRN PRN Reason: Cough Clonidine HCl (Clonidine Hcl 0.1 Mg Tablet) 0.1 mg PO TID PRN; Protocol PRN Reason: hyperarousal, anxiety, panic Docusate Sodium (Docusate Sodium 100 Mg Capsule) 100 mg PO DAILY PRN PRN Reason: Constipation Fluoxetine HCl (Fluoxetine Hcl 20 Mg Capsule) 40 mg PO DAILY HI Gabapentin (Gabapentin 400 Mg Capsule) 400 mg PO TID HI Melatonin (Melatonin 3 Mg Tablet) 3 mg PO BEDTIME PRN PRN Reason: Insomnia Metoprolol Succinate (Metoprolol Succinate Er 50 Mg Tab.Er.24h) 50 mg PO DAILY [facility]; Protocol Non-Formulary Medication (Fluticasone Propionate [Flovent Hfa]) 2 puff INHALE BID [facility] Nystatin (Nystatin Powder 15 Gm Bottle) 1 appl TOPICAL BID HI; Protocol Ondansetron HCl (Ondansetron Hcl 4 Mg/2 Ml Vial) 4 mg IVPUSH Q8H PRN PRN Reason: Nausea and Vomiting Risperidone (Risperidone 1 Mg Tablet) 1 mg PO BID [facility] Sodium Chloride (0.9 % Sodium Chloride Flush 3 Ml Syringe) 3 ml IVFLUSH QSHIFT [facility] Tizanidine HCl (Tizanidine Hcl 4 Mg Tablet) 4 mg PO BEDTIME [facility] Vitamin D (Cholecalciferol (Vitamin D3) 25 Mcg Tablet) 25 mcg PO DAILY [facility] Home Medications Medication Instructions Recorded Confirmed Last Taken Type albuterol sulfate 90 mcg/actuation 2 puff inhalation Q4H PRN Dyspnea 11/23/20 09/08/22 1 Day Ago History aerosol inhaler (ProAir HFA) ~03/31/21 aspirin 81 mg tablet,delayed 81 mg PO DAILY 11/23/20 09/08/22 09/08/22 History release fluoxetine 40 mg capsule 40 mg PO DAILY 11/23/20 09/08/22 09/08/22 History fluticasone propionate 110 2 puff inhalation BID 11/23/20 09/08/22 09/08/22 History mcg/actuation HFA aerosol inhaler (Flovent HFA) metoprolol succinate 50 mg 50 mg PO DAILY 11/23/20 09/08/22 09/08/22 History tablet,extended release 24 hr simvastatin 20 mg tablet 20 mg PO BEDTIME 11/23/20 09/08/22 09/07/22 History isosorbide mononitrate 30 mg 30 mg PO DAILY 12/11/20 09/08/22 09/08/22 History tablet,extended release 24 hr tizanidine 4 mg tablet 4 mg PO BEDTIME 12/11/20 09/08/22 09/07/22 History amlodipine 10 mg tablet 1 tab PO DAILY 06/07/21 09/08/22 09/08/22 History bumetanide 2 mg tablet 1 tab PO DAILY 06/07/21 09/08/22 09/08/22 History cholecalciferol (vitamin D3) 25 1 cap PO DAILY 06/07/21 09/08/22 09/08/22 History mcg (1,000 unit) capsule meclizine 25 mg tablet 25 mg PO TID PRN Dizziness 06/07/21 09/08/22 Unknown History risperidone 1 mg tablet 1 tab PO BID 04/20/22 09/08/22 09/08/22 History blood sugar diagnostic (FreeStyle #10 ea 06/25/22 06/25/22 Unknown History Lite Strips) insulin syringe-needle U-100 1 mL #10 ea 06/25/22 06/25/22 Unknown History 31 gauge x 5/16 (BD Insulin Syringe Ultra-Fine) lancets 28 gauge (FreeStyle #100 ea 06/25/22 06/25/22 Unknown History Lancets) clotrimazole 1 % topical cream 1 appl topical BID 09/08/22 09/08/22 Unknown History gabapentin 400 mg capsule 400 mg PO TID 09/08/22 09/08/22 09/08/22 History insulin glargine 100 unit/mL 50 unit subcut BID 09/08/22 09/08/22 09/08/22 History subcutaneous solution (Lantus U-100 Insulin) nystatin 100,000 unit/gram topical 1 appl topical BID 09/08/22 09/08/22 Unknown History powder silver sulfadiazine 1 % topical 1 appl topical BID 09/08/22 09/08/22 09/08/22 History cream Physical Exam Vital Signs and Narrative: Vital Signs: Last Vital Signs Temp 97.6 F 09/08/22 14:21 Pulse 79 09/08/22 14:21 Resp 16 09/08/22 14:21 BP 121/54 L 09/08/22 14:21 Pulse Ox 94 09/08/22 14:21 O2 Del Method 09/08/22 14:21 BMI result Body Mass Index 54.8 Const: Other: General resting comfortably in no acute distress.? Neck no JVD. CVS? regular rate rhythm, Respiratory lungs clear to auscultation, no respiratory distress, no wheeze, no rhonchi. Gastrointestinal abdomen soft, obese, nontender, bowel sounds audible, no guarding , no rigidity. Extremities bilateral pitting edema, good peripheral pulses. Left hip pain with flexion-extension, no shortening of leg no loss of function Neuro nonfocal Skin no rash Psych appropriate affect Results Labs 09/08/22 12:44 09/08/22 12:44 Labs: Laboratory Results - last 24 hr 09/08/22 09/08/22 09/08/22 12:44 12:44 12:44 MCV 88.0 MCH 27.7 MCHC 31.4 RDW 13.8 Plt Count 189 MPV 8.9 L Immature Gran % (Auto) 0.5 H Neut % (Auto) 79.2 H Lymph % (Auto) 9.7 L [place] % (Auto) 8.6 Eos % (Auto) 1.6 Baso % (Auto) 0.4 Lymph # (Auto) 1.0 L [place] # (Auto) 0.9 Eos # (Auto) 0.2 Baso # (Auto) 0.0 Abs Immat Gran (auto) 0.05 H Absolute Neuts (auto) 7.9 Absolute Nucleated RBC 0.000 Nucleated RBC % (auto) 0.0 PT INR Anion Gap 20 Estim Creat Clear Calc 39.8 Estimated GFR 26 Random Glucose 209 H Lactic Acid 1.2 Calcium 8.6 Magnesium 2.3 Total Bilirubin 0.4 Direct Bilirubin < 0.2 AST 14 ALT 9 Alkaline Phosphatase 65 Troponin I High Sens B-Natriuretic Peptide Total Protein 7.1 Albumin 3.8 Lipase 7 L COVID-19 ([facility]) COVID-[facility] Clin Com 09/08/22 09/08/22 09/08/22 12:44 12:44 12:44 MCV MCH MCHC RDW Plt Count MPV Immature Gran % (Auto) Neut % (Auto) Lymph % (Auto) [place] % (Auto) Eos % (Auto) Baso % (Auto) Lymph # (Auto) [place] # (Auto) Eos # (Auto) Baso # (Auto) Abs Immat Gran (auto) Absolute Neuts (auto) Absolute Nucleated RBC Nucleated RBC % (auto) PT INR Anion Gap Estim Creat Clear Calc Estimated GFR Random Glucose Lactic Acid Calcium Magnesium Total Bilirubin Direct Bilirubin AST ALT Alkaline Phosphatase Troponin I High Sens 5.6 B-Natriuretic Peptide 63 Total Protein Albumin Lipase COVID-19 ([facility]) Negative COVID-19 Clin Com See Note 09/08/22 09/08/22 13:16 16:12 MCV MCH MCHC RDW Plt Count MPV Immature Gran % (Auto) Neut % (Auto) Lymph % (Auto) [place] % (Auto) Eos % (Auto) Baso % (Auto) Lymph # (Auto) [place] # (Auto) Eos # (Auto) Baso # (Auto) Abs Immat Gran (auto) Absolute Neuts (auto) Absolute Nucleated RBC Nucleated RBC % (auto) PT 9.9 L INR 0.9 Anion Gap Estim Creat Clear Calc Estimated GFR Random Glucose Lactic Acid Calcium Magnesium Total Bilirubin Direct Bilirubin AST ALT Alkaline Phosphatase Troponin I High Sens 5.6 B-Natriuretic Peptide Total Protein Albumin Lipase COVID-19 ([facility]) COVID-19 Clin Com Imaging Radiologist's Impressions: Impressions Chest X-Ray 09/08/22 13:06 IMPRESSION: Stable enlargement of the cardiac silhouette. Venous Duplex 09/08/22 15:50 IMPRESSION: Limited but negative exam. Assessment and Plan (1) Acute kidney injury superimposed on CKD: Status: Acute (2) Pitting edema: Status: Acute Plan 62-year-old female here with left hip pain and bilateral lower extremity swelling Intractable left hip pain Patient had a recent MRI, will obtain report from primary care physician will hold further imaging study recent CT abdomen and pelvis showed multilevel spondylosis lower thoracic and lumbar spine admit to medical floor placed on IV Dilaudid and oxycodone patient is allergic to Tylenol and ibuprofen Obtain PT eval Acute on chronic kidney disease stage III Mild elevation of creatinine will hold diuretics, follow BMP if no improvement obtained Neuro consult, avoid nephrotoxins all medication renally dosed Bilateral lower extremity swelling due to chronic stasis Likely due to Norvasc/hydralazine , prolong sitting, normal LFTs, no evidence of acute congestive heart failure, negative venous Doppler study for DVT No evidence of acute congestive heart failure exacerbation Will decrease dose of Norvasc to 5 mg, apply Tanmay wrap recommend to keep leg elevated while sitting. Chronic CHF with reduced EF no acute exacerbation with normal BNP and chest x-ray resume home medications Diabetes mellitus diabetic diet, insulin sliding scale and continue Lantus, follow blood sugar q.i.d. COPD no acute exacerbation continue a DuoNeb updraft, oxygen 94% on room air Obstructive sleep apnea, not using CPAP due to claustrophobia Morbid obesity recommended low-calorie diet Mood disorder resume all home medications DVT prophylaxis with subcu heparin Code status full code In my clinical judgment patient need to night inpatient stay due to intractable left hip pain with difficulty in ambulation requiring IV analgesics and for close follow-up on renal function. Time Spent With Patient Time: Total time managing care of this patient today ____ minutes. Quality Stroke Does the patient have a stroke diagnosis?: No VTE Prior VTE?: No VTE Risk Level:: Medical - moderate - high VTE Device Contraindication: Treatment Not Indicated VTE Drug Contraindication: N/A - Med Ordered
[2022-09-08 18:57] VITALS: BP 109/68; PULSE 70; RESP 19; TEMP 36.7; O2SAT 93
[2022-09-08] MEDS: Heparin Sodium,Porcine 5,000 UNIT/ML VIAL 5000 UNIT SUBCUT (19:00)
[2022-09-08] MEDS: oxyCODONE HCl Immed Release 5 MG TABLET PO (19:57)
[2022-09-08] MEDS: risperiDONE 1 MG TABLET PO (20:30)
[2022-09-08] MEDS: Gabapentin 400 MG CAPSULE PO (20:30)
[2022-09-08] MEDS: TiZANidine HCL 4 MG TABLET PO (20:33)
[2022-09-08] MEDS: Nystatin Powder 15 GM BOTTLE 1 APPL TOPICAL (20:56)
[2022-09-08 21:16] LABS: Glucose, Whole Blood 202 mg/dL (60-115)
[2022-09-08] MEDS: Insulin Lispro 100 UNIT/ML 3 ML VIAL SUBCUT (21:39)
[2022-09-08] MEDS: Insulin Glargine,Hum.rec.anlog 100 UNIT/ML 10 ML VIAL 30 UNIT SUBCUT (21:39)
[2022-09-08 23:46] VITALS: BP 115/51; PULSE 85; RESP 16; TEMP 37.3; O2SAT 94
[2022-09-08] MEDS: 0.9 % Sodium Chloride Flush 3 ML SYRINGE IVFLUSH (23:47)
[2022-09-08] MEDS: HYDROmorphone HCl 0.5 MG/0.5 ML SYRINGE IVPUSH (23:51)
[2022-09-09] VITALS (8 sets, daily range): BP systolic 106–165; BP diastolic 51–69; PULSE 80–89; RESP 15–20; TEMP 36.8–37.2; O2SAT 90–97; BMI 54.8
[2022-09-09] MEDS: Heparin Sodium,Porcine 5,000 UNIT/ML VIAL 5000 UNIT SUBCUT ×3 (01:42→19:12)
[2022-09-09 06:18] LABS: Appearance Urine Clear; Color Urine Yellow; Glucose Urine UA Negative (Negative); Leukocyte Esterase Urine Negative (Negative); Nitrite Urine Negative (Negative); PH 5.5 (5.0-9.0); Specific Gravity - Urine 1.015 (1.005-1.025); Urine Blood Negative (Negative); Urine Ketones Negative (Negative); Urine Protein Negative (Neg-Trace)
[2022-09-09 07:30] LABS: Glucose, Whole Blood 101 mg/dL (60-115)
[2022-09-09] MEDS: Fluticasone Propionate 100 MCG BLST.W.DEV 2 PUFF INHALE ×2 (07:44→19:59)
[2022-09-09] MEDS: FLUoxetine HCl 20 MG CAPSULE 40 MG PO (08:19)
[2022-09-09] MEDS: amLODIPine Besylate 5 MG TABLET PO (08:19)
[2022-09-09] MEDS: Gabapentin 400 MG CAPSULE PO ×3 (08:19→20:40)
[2022-09-09] MEDS: Metoprolol Succinate ER 50 MG TAB.ER.24H PO (08:19)
[2022-09-09] MEDS: Atorvastatin Calcium 10 MG TABLET PO (08:20)
[2022-09-09] MEDS: risperiDONE 1 MG TABLET PO ×2 (08:20→20:40)
[2022-09-09] MEDS: 0.9 % Sodium Chloride Flush 3 ML SYRINGE IVFLUSH ×3 (08:20→20:46)
[2022-09-09] MEDS: Aspirin Enteric Coated 81 MG TABLET.DR PO (08:20)
[2022-09-09] MEDS: HYDROmorphone HCl 0.5 MG/0.5 ML SYRINGE IVPUSH ×2 (08:21→20:40)
[2022-09-09] MEDS: Cholecalciferol (Vitamin D3) 25 MCG TABLET PO (08:21)
[2022-09-09 10:22] LABS: Estimated Average Glucose 177 mg/dL; Hemoglobin A1c % 7.8 %
--- NOTE | 2022-09-09 10:23 | P.CONNP_ITS ---
History of Present Illness Reason for Consult Consult date: 09/09/22 Reason for consult: CKD Chief Complaint Chief complaint: left hip intractable pain/acute on chronic kidney History of Present Illness Narrative: 62-year-old female with a history of obstructive sleep apnea, obesity hypoventilation syndrome, congestive heart failure with reduced EF, chronic kidney disease stage IIIA, history of COPD/asthma , presented to [place] due to left hip pain with difficulty in ambulation of 2 weeks duration, associated with bilateral lower extremity swelling, patient denies fall, no trauma, complain of pain with movement and walking, she was seen at [facility] on August 25 with similar symptoms at that time a CT abdomen and pelvis showed no osseous abnormality according to patient she had an MRI left hip done at [facility] ordered per Dr. Huber 1 week ago but do not have the report, since pain was getting worse she came to ED, she denies associated shortness of breath, no orthopnea, no PND, denies chest pain, no palpitation, no shortness of breath denies nausea vomiting abdominal pain, no fevers, no chills, labs showed normal electrolytes, creatinine 1.98 with baseline creatinine around 1.7 blood sugars stable normal liver function, normal protein and albumin, normal recent TSH Doppler study lower extremity showed no DVT, chest x-ray showed no infiltrate, no evidence of CHF BNP of 63 normal troponins patient is being admitted to [facility] due to intractable left hip pain with difficulty in ambulation as well as bilateral lower extremity edema. h/o CKD with a baseline C rof 1.8 to 2.0 and h/ FELICIA in the past Review of Systems Constitutional: Denies chills Cardiovascular: Denies chest pain, Reports edema and Reports dyspnea Respiratory: Denies chest congestion, Denies cough, Denies hemoptysis and Reports dyspnea Gastrointestinal: Denies abdominal pain, Denies diarrhea and Denies vomiting Genitourinary: Denies hematuria, Denies urinary hesitancy and Denies urinary urgency Musculoskeletal: Denies numbness Denies focal weakness and Denies numbness PMFSH Past Medical History Medical History Abdominal pain Acute on chronic combined systolic and diastolic CHF (congestive heart failure) Adjustment disorder with mixed anxiety and depressed mood FELICIA (acute kidney injury) Asthma Cellulitis of right lower extremity CHF exacerbation Chronic pain Chronic respiratory failure with hypoxia CKD (chronic kidney disease) stage 3, GFR 30-59 ml/min Congestive heart failure Constipation COPD (chronic obstructive pulmonary disease) Decubitus ulcer Depression Diabetes Diabetic neuropathy, painful High cholesterol Hyperglycemia due to diabetes mellitus Hypertension Hypoxia MDD (major depressive disorder), recurrent episode, moderate Morbid obesity NICM (nonischemic cardiomyopathy) Obesity hypoventilation syndrome DANIEL (obstructive sleep apnea) Panic disorder Stasis dermatitis of both legs Stercoral colitis Uncontrolled type 2 diabetes mellitus with hyperglycemia Family History Family History Mother HTN (hypertension) Diabetes CAD (coronary artery disease) Father HTN (hypertension) Diabetes CAD (coronary artery disease) Maternal Grandmother CAD (coronary artery disease) Surgical History Surgical History Hx of cholecystectomy Social History Social History Household Members: None Household Members Other:: GRANDSON Housing: Apartment Housing Other:: with external grinder tender Do you presently have visiting nurse or other home services: Yes Alcohol intake: unknown Patient Tobacco Use Status: Former Tobacco user Quit Date: 1999 Tobacco use type: Cigarette Years Smoked: 38 Second Hand Smoke Exposure: No Substance Use Type: Marijuana Advance Directives Date on File: 12/19/20 service: No Current occupational status: disabled Meds Allergies Allergy/AdvReac Type Severity Reaction Status Date / Time ibuprofen Allergy Intermediate vommiting, Verified 06/25/22 10:50 itching acetaminophen [Tylenol] Allergy Mild Unknown Verified 06/25/22 10:50 morphine AdvReac Intermediate vomiting Verified 06/25/22 10:50 Active Medications: Current Medications Albuterol Sulfate (Albuterol Sulfate 90 Mcg 8 Gm Inhaler) 2 puff INHALE Q4H PRN PRN Reason: Dyspnea Amlodipine Besylate (Amlodipine Besylate 5 Mg Tablet) 5 mg PO DAILY [facility]; Protocol Last Admin: 09/09/22 08:19 Dose: 5 mg Aspirin (Aspirin Enteric Coated 81 Mg Tablet.) 81 mg PO DAILY [facility] Last Admin: 09/09/22 08:20 Dose: 81 mg Atorvastatin Calcium (Atorvastatin Calcium 10 Mg Tablet) 10 mg PO DAILY [facility] Last Admin: 09/09/22 08:20 Dose: 10 mg Benzonatate (Benzonatate 100 Mg Capsule) 100 mg PO TID PRN PRN Reason: Cough Clonidine HCl (Clonidine Hcl 0.1 Mg Tablet) 0.1 mg PO TID PRN; Protocol PRN Reason: hyperarousal, anxiety, panic Dextrose (Dextrose 50 % 25 Gm/50 Ml Syringe) 25 gm IVPUSH Q15M PRN; Protocol PRN Reason: per Hypoglycemia Standing Ord. Docusate Sodium (Docusate Sodium 100 Mg Capsule) 100 mg PO DAILY PRN PRN Reason: Constipation Fluoxetine HCl (Fluoxetine Hcl 20 Mg Capsule) 40 mg PO DAILY [facility] Last Admin: 09/09/22 08:19 Dose: 40 mg Fluticasone Propionate (Fluticasone Propionate 100 Mcg Blst.W.Dev) 2 puff INHALE RBID [facility] Last Admin: 09/09/22 07:44 Dose: 2 puff Gabapentin (Gabapentin 400 Mg Capsule) 400 mg PO TID [facility] Last Admin: 09/09/22 08:19 Dose: 400 mg Glucose (Glucose Gel 15 Gm Gel..Gram.) 15 gm PO Q15M PRN; Protocol PRN Reason: per Hypoglycemia Standing Ord. Heparin Sodium (Porcine) (Heparin Sodium,Porcine 5,000 Unit/Ml Vial) 5,000 unit SUBCUT Q8H [facility] Last Admin: 09/09/22 08:20 Dose: 5,000 unit Hydromorphone HCl (Hydromorphone Hcl 0.5 Mg/0.5 Ml Syringe) 0.5 mg IVPUSH Q4H PRN; Protocol PRN Reason: Pain, Severe (Pain Scale 7-10) Last Admin: 09/09/22 08:21 Dose: 0.5 mg Insulin Glargine (Insulin Glargine,Hum.Rec.Anlog 100 Unit/Ml 10 Ml Vial) 30 unit SUBCUT BEDTIME [facility] Last Admin: 09/08/22 21:39 Dose: 30 unit Insulin Human Lispro (Insulin Lispro 100 Unit/Ml 3 Ml Vial) 0 unit SUBCUT QIDACHS [facility]; Protocol Last Admin: 09/09/22 08:25 Dose: Not Given Melatonin (Melatonin 3 Mg Tablet) 3 mg PO BEDTIME PRN PRN Reason: Insomnia Metoprolol Succinate (Metoprolol Succinate Er 50 Mg Tab.Er.24h) 50 mg PO DAILY [facility]; Protocol Last Admin: 09/09/22 08:19 Dose: 50 mg Nystatin (Nystatin Powder 15 Gm Bottle) 1 appl TOPICAL BID [facility]; Protocol Last Admin: 09/08/22 20:56 Dose: 1 appl Ondansetron HCl (Ondansetron Hcl 4 Mg/2 Ml Vial) 4 mg IVPUSH Q8H PRN PRN Reason: Nausea and Vomiting Oxycodone HCl (Oxycodone Hcl Immed Release 5 Mg Tablet) 5 mg PO Q6H PRN PRN Reason: Pain, Moderate (Pain Scale 4-6 Last Admin: 09/08/22 19:57 Dose: 5 mg Risperidone (Risperidone 1 Mg Tablet) 1 mg PO BID [facility] Last Admin: 09/09/22 08:20 Dose: 1 mg Sodium Chloride (0.9 % Sodium Chloride Flush 3 Ml Syringe) 3 ml IVFLUSH QSHIFT [facility] Last Admin: 09/09/22 08:20 Dose: 3 ml Tizanidine HCl (Tizanidine Hcl 4 Mg Tablet) 4 mg PO BEDTIME [facility] Last Admin: 09/08/22 20:33 Dose: 4 mg Vitamin D (Cholecalciferol (Vitamin D3) 25 Mcg Tablet) 25 mcg PO DAILY [facility] Last Admin: 09/09/22 08:21 Dose: 25 mcg Home Medications Medication Instructions Recorded Confirmed Last Taken Type albuterol sulfate 90 mcg/actuation 2 puff inhalation Q4H PRN Dyspnea 11/23/20 09/08/22 1 Day Ago History aerosol inhaler (ProAir HFA) ~03/31/21 aspirin 81 mg tablet,delayed 81 mg PO DAILY 11/23/20 09/08/22 09/08/22 History release fluoxetine 40 mg capsule 40 mg PO DAILY 11/23/20 09/08/22 09/08/22 History fluticasone propionate 110 2 puff inhalation BID 11/23/20 09/08/22 09/08/22 History mcg/actuation HFA aerosol inhaler (Flovent HFA) metoprolol succinate 50 mg 50 mg PO DAILY 11/23/20 09/08/22 09/08/22 History tablet,extended release 24 hr simvastatin 20 mg tablet 20 mg PO BEDTIME 11/23/20 09/08/22 09/07/22 History isosorbide mononitrate 30 mg 30 mg PO DAILY 12/11/20 09/08/22 09/08/22 History tablet,extended release 24 hr tizanidine 4 mg tablet 4 mg PO BEDTIME 12/11/20 09/08/22 09/07/22 History amlodipine 10 mg tablet 1 tab PO DAILY 06/07/21 09/08/22 09/08/22 History bumetanide 2 mg tablet 1 tab PO DAILY 06/07/21 09/08/22 09/08/22 History cholecalciferol (vitamin D3) 25 1 cap PO DAILY 06/07/21 09/08/22 09/08/22 History mcg (1,000 unit) capsule meclizine 25 mg tablet 25 mg PO TID PRN Dizziness 06/07/21 09/08/22 Unknown History risperidone 1 mg tablet 1 tab PO BID 04/20/22 09/08/22 09/08/22 History blood sugar diagnostic (FreeStyle #10 ea 06/25/22 06/25/22 Unknown History Lite Strips) insulin syringe-needle U-100 1 mL #10 ea 06/25/22 06/25/22 Unknown History 31 gauge x 5/16 (BD Insulin Syringe Ultra-Fine) lancets 28 gauge (FreeStyle #100 ea 06/25/22 06/25/22 Unknown History Lancets) clotrimazole 1 % topical cream 1 appl topical BID 09/08/22 09/08/22 Unknown History gabapentin 400 mg capsule 400 mg PO TID 09/08/22 09/08/22 09/08/22 History insulin glargine 100 unit/mL 50 unit subcut BID 09/08/22 09/08/22 09/08/22 History subcutaneous solution (Lantus U-100 Insulin) nystatin 100,000 unit/gram topical 1 appl topical BID 09/08/22 09/08/22 Unknown History powder silver sulfadiazine 1 % topical 1 appl topical BID 09/08/22 09/08/22 09/08/22 History cream Physical Exam Vital Signs: Last Vital Signs Temp 99.0 F 09/09/22 07:13 Pulse 84 09/09/22 07:46 Resp 15 09/09/22 07:46 BP 164/69 H 09/09/22 07:13 Pulse Ox 94 09/09/22 08:51 O2 Del Method 09/09/22 07:13 O2 Flow Rate 2 09/09/22 07:13 BMI result Body Mass Index 54.8 General resting comfortably in no acute distress.? Neck no JVD. CVS? regular rate rhythm, Respiratory lungs clear to auscultation, no respiratory distress, no wheeze, no rhonchi. Gastrointestinal abdomen soft, obese, nontender, bowel sounds audible, no guarding , no rigidity. Extremities bilateral pitting edema, good peripheral pulses. Left hip pain with flexion-extension, no shortening of leg no loss of function Neuro nonfocal Skin no rash Psych appropriate affect Results Lab Results 09/08/22 12:44 09/08/22 12:44 Lab results: Chemistry 09/08/22 12:44 Sodium 138 Potassium 5.1 Carbon Dioxide 24 BUN 96 H Creatinine 1.98 H Calcium 8.6 Hematology 09/08/22 12:44 WBC 10.0 Hgb 11.1 L Plt Count 189 Urinalysis 09/09/22 05:51 Urine Color Yellow Urine Appearance Clear Urine pH 5.5 Ur Specific [place] 1.015 Urine Protein Negative Urine Glucose (UA) Negative Urine Ketones Negative Urine Blood Negative Urine Nitrite Negative Ur Leukocyte Esterase Negative Assessment and Plan (1) Acute kidney injury superimposed on CKD: Status: Acute (2) CKD (chronic kidney disease) stage 3, GFR 30-59 ml/min: Status: Acute (3) Hypertension: Status: Acute Plan Suggest Optimize BP Lower Amlodipine to 5 mg QD Keep O > I with current Bumex Can start with 1 mg QD and titrate 2 gm Na diet DC CLonidine Can change Hydralazine to 25 mg TID and titrate dose AVOID hypotension Time Spent With Patient Time: Total time managing care of this patient today ____ minutes. Procedures Date of Service Date of Service: 09/09/22
--- NOTE | 2022-09-09 10:34 | MHC.CM.PN ---
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
[2022-09-09 10:39] LABS: Anion Gap 15 (12-20); Blood Urea Nitrogen 83 mg/dL (9-16); Calcium 8.6 mg/dL (8.4-10.2); Carbon Dioxide 29 mmol/L (22-29); Chloride 101 mmol/L (96-108); Creatinine Clr Calc Pharmacy 45.7; Estimated Glomerular Filt Rate 30; Glucose Random 160 mg/dL (60-115); Sodium 140 mmol/L (135-145)
[2022-09-09 11:00] LABS: Glucose, Whole Blood 170 mg/dL (60-115)
[2022-09-09] MEDS: predniSONE 20 MG TABLET 40 MG PO (12:11)
[2022-09-09] MEDS: Nystatin Powder 15 GM BOTTLE 1 APPL TOPICAL (12:12)
[2022-09-09] MEDS: Insulin Lispro 100 UNIT/ML 3 ML VIAL SUBCUT ×3 (12:12→20:39)
--- NOTE | 2022-09-09 12:16 | HO.WOUNDCONS ---
History of Present Illness Data of Consult Service Date: 09/09/22 Requesting physician: Davion Mccallum Primary Care Provider: Tavo Huber MD HPI Reason for consult: pressure injury stage 2 coccyx [id number]: Patient well known to the wound clinic. 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 She iss hospitalized today with CHF exacerbation on Rocephin and Bumex. She has renal failure. She is not feeling much better today. She is not up to me examining her coccyx and buttock area. She feels short of breath and feels weak/poor. She is in the recliner and has difficulty transfers, which is unusual for her. Review of Systems Review of Systems: No fever or chest pain reported. Leg swelling and SOB are noted. [facility] Medical History (Updated 09/09/22 @ 12:20 by GUADALUPE Bradford) Abdominal pain Acute on chronic combined systolic and diastolic CHF (congestive heart failure) Adjustment disorder with mixed anxiety and depressed mood FELICAI (acute kidney injury) Asthma Cellulitis of right lower extremity CHF exacerbation Chronic pain Chronic respiratory failure with hypoxia CKD (chronic kidney disease) stage 3, GFR 30-59 ml/min Congestive heart failure Constipation COPD (chronic obstructive pulmonary disease) Decubitus ulcer Depression Diabetes Diabetic neuropathy, painful High cholesterol Hyperglycemia due to diabetes mellitus Hypertension Hypoxia MDD (major depressive disorder), recurrent episode, moderate Morbid obesity NICM (nonischemic cardiomyopathy) Obesity hypoventilation syndrome DANIEL (obstructive sleep apnea) Panic disorder Stasis dermatitis of both legs Stercoral colitis Uncontrolled type 2 diabetes mellitus with hyperglycemia Family History Mother HTN (hypertension) Diabetes CAD (coronary artery disease) Father HTN (hypertension) Diabetes CAD (coronary artery disease) Maternal Grandmother CAD (coronary artery disease) Surgical History Hx of cholecystectomy Social History Household Members: None Household Members Other:: GRANDSON Housing: Apartment Housing Other:: with lopper Do you presently have visiting nurse or other home services: Yes Alcohol intake: unknown Patient Tobacco Use Status: Former Tobacco user Quit Date: 1999 Tobacco use type: Cigarette Years Smoked: 38 Second Hand Smoke Exposure: No Substance Use Type: Marijuana Advance Directives Date on File: 12/19/20 service: No Current occupational status: disabled Meds Allergies Allergy/AdvReac Type Severity Reaction Status Date / Time ibuprofen Allergy Intermediate vommiting, Verified 06/25/22 10:50 itching acetaminophen [Tylenol] Allergy Mild Unknown Verified 06/25/22 10:50 morphine AdvReac Intermediate vomiting Verified 06/25/22 10:50 Active Medications: Current Medications Albuterol Sulfate (Albuterol Sulfate 90 Mcg 8 Gm Inhaler) 2 puff INHALE Q4H PRN PRN Reason: Dyspnea Amlodipine Besylate (Amlodipine Besylate 5 Mg Tablet) 5 mg PO DAILY [facility]; Protocol Last Admin: 09/09/22 08:19 Dose: 5 mg Aspirin (Aspirin Enteric Coated 81 Mg Tablet.Dr) 81 mg PO DAILY [facility] Last Admin: 09/09/22 08:20 Dose: 81 mg Atorvastatin Calcium (Atorvastatin Calcium 10 Mg Tablet) 10 mg PO DAILY [facility] Last Admin: 09/09/22 08:20 Dose: 10 mg Benzonatate (Benzonatate 100 Mg Capsule) 100 mg PO TID PRN PRN Reason: Cough Clonidine HCl (Clonidine Hcl 0.1 Mg Tablet) 0.1 mg PO TID PRN; Protocol PRN Reason: hyperarousal, anxiety, panic Dextrose (Dextrose 50 % 25 Gm/50 Ml Syringe) 25 gm IVPUSH Q15M PRN; Protocol PRN Reason: per Hypoglycemia Standing Ord. Docusate Sodium (Docusate Sodium 100 Mg Capsule) 100 mg PO DAILY PRN PRN Reason: Constipation Fluoxetine HCl (Fluoxetine Hcl 20 Mg Capsule) 40 mg PO DAILY [facility] Last Admin: 09/09/22 08:19 Dose: 40 mg Fluticasone Propionate (Fluticasone Propionate 100 Mcg Blst.W.Dev) 2 puff INHALE RBID [facility] Last Admin: 09/09/22 07:44 Dose: 2 puff Gabapentin (Gabapentin 400 Mg Capsule) 400 mg PO TID [facility] Last Admin: 09/09/22 08:19 Dose: 400 mg Glucose (Glucose Gel 15 Gm Gel..Gram.) 15 gm PO Q15M PRN; Protocol PRN Reason: per Hypoglycemia Standing Ord. Heparin Sodium (Porcine) (Heparin Sodium,Porcine 5,000 Unit/Ml Vial) 5,000 unit SUBCUT Q8H [facility] Last Admin: 09/09/22 08:20 Dose: 5,000 unit Hydromorphone HCl (Hydromorphone Hcl 0.5 Mg/0.5 Ml Syringe) 0.5 mg IVPUSH Q4H PRN; Protocol PRN Reason: Pain, Severe (Pain Scale 7-10) Last Admin: 09/09/22 08:21 Dose: 0.5 mg Insulin Glargine (Insulin Glargine,Hum.Rec.Anlog 100 Unit/Ml 10 Ml Vial) 30 unit SUBCUT BEDTIME [facility] Last Admin: 09/08/22 21:39 Dose: 30 unit Insulin Human Lispro (Insulin Lispro 100 Unit/Ml 3 Ml Vial) 0 unit SUBCUT QIDACHS [facility]; Protocol Last Admin: 09/09/22 12:12 Dose: 2 unit Melatonin (Melatonin 3 Mg Tablet) 3 mg PO BEDTIME PRN PRN Reason: Insomnia Metoprolol Succinate (Metoprolol Succinate Er 50 Mg Tab.Er.24h) 50 mg PO DAILY [facility]; Protocol Last Admin: 09/09/22 08:19 Dose: 50 mg Nystatin (Nystatin Powder 15 Gm Bottle) 1 appl TOPICAL BID [facility]; Protocol Last Admin: 09/09/22 12:12 Dose: 1 appl Ondansetron HCl (Ondansetron Hcl 4 Mg/2 Ml Vial) 4 mg IVPUSH Q8H PRN PRN Reason: Nausea and Vomiting Oxycodone HCl (Oxycodone Hcl Immed Release 5 Mg Tablet) 5 mg PO Q6H PRN PRN Reason: Pain, Moderate (Pain Scale 4-6 Last Admin: 09/08/22 19:57 Dose: 5 mg Risperidone (Risperidone 1 Mg Tablet) 1 mg PO BID [facility] Last Admin: 09/09/22 08:20 Dose: 1 mg Sodium Chloride (0.9 % Sodium Chloride Flush 3 Ml Syringe) 3 ml IVFLUSH QSHIFT [facility] Last Admin: 09/09/22 08:20 Dose: 3 ml Tizanidine HCl (Tizanidine Hcl 4 Mg Tablet) 4 mg PO BEDTIME [facility] Last Admin: 09/08/22 20:33 Dose: 4 mg Vitamin D (Cholecalciferol (Vitamin D3) 25 Mcg Tablet) 25 mcg PO DAILY [facility] Last Admin: 09/09/22 08:21 Dose: 25 mcg Home Medications Medication Instructions Recorded Confirmed Last Taken Type albuterol sulfate 90 mcg/actuation 2 puff inhalation Q4H PRN Dyspnea 11/23/20 09/08/22 1 Day Ago History aerosol inhaler (ProAir HFA) ~03/31/21 aspirin 81 mg tablet,delayed 81 mg PO DAILY 11/23/20 09/08/22 09/08/22 History release fluoxetine 40 mg capsule 40 mg PO DAILY 11/23/20 09/08/22 09/08/22 History fluticasone propionate 110 2 puff inhalation BID 11/23/20 09/08/22 09/08/22 History mcg/actuation HFA aerosol inhaler (Flovent HFA) metoprolol succinate 50 mg 50 mg PO DAILY 11/23/20 09/08/22 09/08/22 History tablet,extended release 24 hr simvastatin 20 mg tablet 20 mg PO BEDTIME 11/23/20 09/08/22 09/07/22 History isosorbide mononitrate 30 mg 30 mg PO DAILY 12/11/20 09/08/22 09/08/22 History tablet,extended release 24 hr tizanidine 4 mg tablet 4 mg PO BEDTIME 12/11/20 09/08/22 09/07/22 History amlodipine 10 mg tablet 1 tab PO DAILY 06/07/21 09/08/22 09/08/22 History bumetanide 2 mg tablet 1 tab PO DAILY 06/07/21 09/08/22 09/08/22 History cholecalciferol (vitamin D3) 25 1 cap PO DAILY 06/07/21 09/08/22 09/08/22 History mcg (1,000 unit) capsule meclizine 25 mg tablet 25 mg PO TID PRN Dizziness 06/07/21 09/08/22 Unknown History risperidone 1 mg tablet 1 tab PO BID 04/20/22 09/08/22 09/08/22 History blood sugar diagnostic (FreeStyle #10 ea 06/25/22 06/25/22 Unknown History Lite Strips) insulin syringe-needle U-100 1 mL #10 ea 06/25/22 06/25/22 Unknown History 31 gauge x 5/16 (BD Insulin Syringe Ultra-Fine) lancets 28 gauge (FreeStyle #100 ea 06/25/22 06/25/22 Unknown History Lancets) clotrimazole 1 % topical cream 1 appl topical BID 09/08/22 09/08/22 Unknown History gabapentin 400 mg capsule 400 mg PO TID 09/08/22 09/08/22 09/08/22 History insulin glargine 100 unit/mL 50 unit subcut BID 09/08/22 09/08/22 09/08/22 History subcutaneous solution (Lantus U-100 Insulin) nystatin 100,000 unit/gram topical 1 appl topical BID 09/08/22 09/08/22 Unknown History powder silver sulfadiazine 1 % topical 1 appl topical BID 09/08/22 09/08/22 09/08/22 History cream Physical Exam Vital Signs and Narrative: Vital Signs: Last Vital Signs Temp 99.0 F 09/09/22 07:13 Pulse 84 09/09/22 07:46 Resp 15 09/09/22 07:46 BP 164/69 H 09/09/22 07:13 Pulse Ox 94 09/09/22 08:51 O2 Del Method 09/09/22 07:13 O2 Flow Rate 2 09/09/22 07:13 BMI result Body Mass Index 54.8 declined exam Results Labs 09/08/22 12:44 09/09/22 10:00 Labs: Laboratory Results - last 24 hr 09/08/22 09/08/22 09/08/22 12:44 12:44 12:44 MCV 88.0 MCH 27.7 MCHC 31.4 RDW 13.8 Plt Count 189 MPV 8.9 L Immature Gran % (Auto) 0.5 H Neut % (Auto) 79.2 H Lymph % (Auto) 9.7 L [place] % (Auto) 8.6 Eos % (Auto) 1.6 Baso % (Auto) 0.4 Lymph # (Auto) 1.0 L [place] # (Auto) 0.9 Eos # (Auto) 0.2 Baso # (Auto) 0.0 Abs Immat Gran (auto) 0.05 H Absolute Neuts (auto) 7.9 Absolute Nucleated RBC 0.000 Nucleated RBC % (auto) 0.0 PT INR Anion Gap 20 Estim Creat Clear Calc 39.8 Estimated GFR 26 POC Glucose Random Glucose 209 H Estimat Average Glucose Hemoglobin A1c % Lactic Acid 1.2 Calcium 8.6 Magnesium 2.3 Total Bilirubin 0.4 Direct Bilirubin < 0.2 AST 14 ALT 9 Alkaline Phosphatase 65 Troponin I High Sens B-Natriuretic Peptide Total Protein 7.1 Albumin 3.8 Lipase 7 L Urine Color Urine Appearance Urine pH Ur Specific [place] Urine Protein Urine Glucose (UA) Urine Ketones Urine Blood Urine Nitrite Ur Leukocyte Esterase COVID-19 ([facility]) COVID-19 [employer] 09/08/22 09/08/22 09/08/22 12:44 12:44 12:44 MCV MCH MCHC RDW Plt Count MPV Immature Gran % (Auto) Neut % (Auto) Lymph % (Auto) [place] % (Auto) Eos % (Auto) Baso % (Auto) Lymph # (Auto) [place] # (Auto) Eos # (Auto) Baso # (Auto) Abs Immat Gran (auto) Absolute Neuts (auto) Absolute Nucleated RBC Nucleated RBC % (auto) PT INR Anion Gap Estim Creat Clear Calc Estimated GFR POC Glucose Random Glucose Estimat Average Glucose Hemoglobin A1c % Lactic Acid Calcium Magnesium Total Bilirubin Direct Bilirubin AST ALT Alkaline Phosphatase Troponin I High Sens 5.6 B-Natriuretic Peptide 63 Total Protein Albumin Lipase Urine Color Urine Appearance Urine pH Ur Specific [place] Urine Protein Urine Glucose (UA) Urine Ketones Urine Blood Urine Nitrite Ur Leukocyte Esterase COVID-19 ([facility]) Negative COVID-[employer] See Note 09/08/22 09/08/22 09/08/22 13:16 16:12 21:12 MCV MCH MCHC RDW Plt Count MPV Immature Gran % (Auto) Neut % (Auto) Lymph % (Auto) [place] % (Auto) Eos % (Auto) Baso % (Auto) Lymph # (Auto) [place] # (Auto) Eos # (Auto) Baso # (Auto) Abs Immat Gran (auto) Absolute Neuts (auto) Absolute Nucleated RBC Nucleated RBC % (auto) PT 9.9 L INR 0.9 Anion Gap Estim Creat Clear Calc Estimated GFR POC Glucose 202 H Random Glucose Estimat Average Glucose Hemoglobin A1c % Lactic Acid Calcium Magnesium Total Bilirubin Direct Bilirubin AST ALT Alkaline Phosphatase Troponin I High Sens 5.6 B-Natriuretic Peptide Total Protein Albumin Lipase Urine Color Urine Appearance Urine pH Ur Specific [place] Urine Protein Urine Glucose (UA) Urine Ketones Urine Blood Urine Nitrite Ur Leukocyte Esterase COVID-19 ([facility]) COVID-[employer] 09/09/22 09/09/22 09/09/22 05:51 07:12 10:00 MCV MCH MCHC RDW Plt Count MPV Immature Gran % (Auto) Neut % (Auto) Lymph % (Auto) [place] % (Auto) Eos % (Auto) Baso % (Auto) Lymph # (Auto) [place] # (Auto) Eos # (Auto) Baso # (Auto) Abs Immat Gran (auto) Absolute Neuts (auto) Absolute Nucleated RBC Nucleated RBC % (auto) PT INR Anion Gap 15 Estim Creat Clear Calc 45.7 Estimated GFR 30 POC Glucose 101 Random Glucose 160 H Estimat Average Glucose Hemoglobin A1c % Lactic Acid Calcium 8.6 Magnesium Total Bilirubin Direct Bilirubin AST ALT Alkaline Phosphatase Troponin I High Sens B-Natriuretic Peptide Total Protein Albumin Lipase Urine Color Yellow Urine Appearance Clear Urine pH 5.5 Ur Specific [place] 1.015 Urine Protein Negative Urine Glucose (UA) Negative Urine Ketones Negative Urine Blood Negative Urine Nitrite Negative Ur Leukocyte Esterase Negative COVID-19 ([facility]) COVID-19 [employer] 09/09/22 09/09/22 10:00 10:57 MCV MCH MCHC RDW Plt Count MPV Immature Gran % (Auto) Neut % (Auto) Lymph % (Auto) [place] % (Auto) Eos % (Auto) Baso % (Auto) Lymph # (Auto) [place] # (Auto) Eos # (Auto) Baso # (Auto) Abs Immat Gran (auto) Absolute Neuts (auto) Absolute Nucleated RBC Nucleated RBC % (auto) PT INR Anion Gap Estim Creat Clear Calc Estimated GFR POC Glucose 170 H Random Glucose Estimat Average Glucose 177 Hemoglobin A1c % 7.8 Lactic Acid Calcium Magnesium Total Bilirubin Direct Bilirubin AST ALT Alkaline Phosphatase Troponin I High Sens B-Natriuretic Peptide Total Protein Albumin Lipase Urine Color Urine Appearance Urine pH Ur Specific [place] Urine Protein Urine Glucose (UA) Urine Ketones Urine Blood Urine Nitrite Ur Leukocyte Esterase COVID-19 ([facility]) COVID-19 Clin Com Imaging Radiologist's Impressions: Impressions Chest X-Ray 09/08/22 13:06 IMPRESSION: Stable enlargement of the cardiac silhouette. Venous Duplex 09/08/22 15:50 IMPRESSION: Limited but negative exam. Assessment and Plan (1) Unspecified skin changes: Status: Acute Plan 62-year-old female with obesity, CHF, COPD admitted for shortness of breath on Rocephin and Bumex. The patient has chronic moisture associated dermatitis. She is ambulatory at home. This does not match typical criteria for pressure injury though without examining her, this cannot be ruled out as a new etiology, particular if she is not feeling well and not getting out of bed. The patient agreed to see us in the wound clinic when she feels better. Recommend topical zinc oxide to tissue that is macerated, avoiding open areas. We have been using hydrofera blue to open areas which she was nearly healed on her last visit on August 25. Silver alginate would be a reasonable alternative to the hydrofera blue but the mainstay of skin protection in the setting of moisture should be zinc oxide.. Time Spent With Patient Time: Total time managing care of this patient today ____ minutes.
--- NOTE | 2022-09-09 12:26 | HO.PM.IMPN ---
Subjective Subjective Date of Service: 09/09/22 Interval History: Complaining of left hip pain, worse with activity, ongoing symptoms x2 weeks, denies urinary or bowel incontinence, tolerating diet with no nausea, no vomiting, no abdominal pain, no acute events overnight. Review of Systems Review of Systems: Yes all other systems are reviewed and are negative Physical Exam Vital Signs: Vital Signs: Last Vital Signs Temp 99.0 F 09/09/22 07:13 Pulse 84 09/09/22 07:46 Resp 15 09/09/22 07:46 BP 164/69 H 09/09/22 07:13 Pulse Ox 94 09/09/22 08:51 O2 Del Method 09/09/22 07:13 O2 Flow Rate 2 09/09/22 07:13 BMI result Body Mass Index 54.8 Const: Other: General resting comfortably in no acute distress.? Neck no JVD. CVS? regular rate rhythm, Respiratory lungs clear to auscultation, no respiratory distress, no wheeze, no rhonchi. Gastrointestinal abdomen soft, obese, nontender, bowel sounds audible, no guarding , no rigidity. Extremities bilateral pitting edema, good peripheral pulses. Left hip pain with flexion-extension, no shortening of leg no loss of function Neuro nonfocal Skin no rash Psych appropriate affect Objective Data Active Medications Albuterol Sulfate (Albuterol Sulfate 90 Mcg 8 Gm Inhaler) 2 puff INHALE Q4H PRN PRN Reason: Dyspnea Amlodipine Besylate (Amlodipine Besylate 5 Mg Tablet) 5 mg PO DAILY [facility]; Protocol Last Admin: 09/09/22 08:19 Dose: 5 mg Documented By: JANET Aspirin (Aspirin Enteric Coated 81 Mg Tablet.) 81 mg PO DAILY [facility] Last Admin: 09/09/22 08:20 Dose: 81 mg Documented By: JANET Atorvastatin Calcium (Atorvastatin Calcium 10 Mg Tablet) 10 mg PO DAILY [facility] Last Admin: 09/09/22 08:20 Dose: 10 mg Documented By: JANET Benzonatate (Benzonatate 100 Mg Capsule) 100 mg PO TID PRN PRN Reason: Cough Clonidine HCl (Clonidine Hcl 0.1 Mg Tablet) 0.1 mg PO TID PRN; Protocol PRN Reason: hyperarousal, anxiety, panic Dextrose (Dextrose 50 % 25 Gm/50 Ml Syringe) 25 gm IVPUSH Q15M PRN; Protocol PRN Reason: per Hypoglycemia Standing Ord. Docusate Sodium (Docusate Sodium 100 Mg Capsule) 100 mg PO DAILY PRN PRN Reason: Constipation Fluoxetine HCl (Fluoxetine Hcl 20 Mg Capsule) 40 mg PO DAILY [facility] Last Admin: 09/09/22 08:19 Dose: 40 mg Documented By: JANET Fluticasone Propionate (Fluticasone Propionate 100 Mcg Blst.W.Dev) 2 puff INHALE RBID [facility] Last Admin: 09/09/22 07:44 Dose: 2 puff Documented By: DANIELA Gabapentin (Gabapentin 400 Mg Capsule) 400 mg PO TID [facility] Last Admin: 09/09/22 08:19 Dose: 400 mg Documented By: JANET Glucose (Glucose Gel 15 Gm Gel..Gram.) 15 gm PO Q15M PRN; Protocol PRN Reason: per Hypoglycemia Standing Ord. Heparin Sodium (Porcine) (Heparin Sodium,Porcine 5,000 Unit/Ml Vial) 5,000 unit SUBCUT Q8H [facility] Last Admin: 09/09/22 08:20 Dose: 5,000 unit Documented By: JANET Hydromorphone HCl (Hydromorphone Hcl 0.5 Mg/0.5 Ml Syringe) 0.5 mg IVPUSH Q4H PRN; Protocol PRN Reason: Pain, Severe (Pain Scale 7-10) Last Admin: 09/09/22 08:21 Dose: 0.5 mg Documented By: JANET Insulin Glargine (Insulin Glargine,Hum.Rec.Anlog 100 Unit/Ml 10 Ml Vial) 30 unit SUBCUT BEDTIME [facility] Last Admin: 09/08/22 21:39 Dose: 30 unit Documented By: FLAQUITO Insulin Human Lispro (Insulin Lispro 100 Unit/Ml 3 Ml Vial) 0 unit SUBCUT QIDACHS [facility]; Protocol Last Admin: 09/09/22 12:12 Dose: 2 unit Documented By: JANET Melatonin (Melatonin 3 Mg Tablet) 3 mg PO BEDTIME PRN PRN Reason: Insomnia Metoprolol Succinate (Metoprolol Succinate Er 50 Mg Tab.Er.24h) 50 mg PO DAILY [facility]; Protocol Last Admin: 09/09/22 08:19 Dose: 50 mg Documented By: JANET Nystatin (Nystatin Powder 15 Gm Bottle) 1 appl TOPICAL BID [facility]; Protocol Last Admin: 09/09/22 12:12 Dose: 1 appl Documented By: JANET Ondansetron HCl (Ondansetron Hcl 4 Mg/2 Ml Vial) 4 mg IVPUSH Q8H PRN PRN Reason: Nausea and Vomiting Oxycodone HCl (Oxycodone Hcl Immed Release 5 Mg Tablet) 5 mg PO Q6H PRN PRN Reason: Pain, Moderate (Pain Scale 4-6 Last Admin: 09/08/22 19:57 Dose: 5 mg Documented By: FLAQUITO Risperidone (Risperidone 1 Mg Tablet) 1 mg PO BID [facility] Last Admin: 09/09/22 08:20 Dose: 1 mg Documented By: JANET Sodium Chloride (0.9 % Sodium Chloride Flush 3 Ml Syringe) 3 ml IVFLUSH QSHIFT [facility] Last Admin: 09/09/22 08:20 Dose: 3 ml Documented By: JANET Tizanidine HCl (Tizanidine Hcl 4 Mg Tablet) 4 mg PO BEDTIME [facility] Last Admin: 09/08/22 20:33 Dose: 4 mg Documented By: FLAQUITO Vitamin D (Cholecalciferol (Vitamin D3) 25 Mcg Tablet) 25 mcg PO DAILY [facility] Last Admin: 09/09/22 08:21 Dose: 25 mcg Documented By: JANET Labs 09/08/22 12:44 09/09/22 10:00 Labs: Laboratory Results - last 24 hr 09/08/22 09/08/22 09/08/22 12:44 12:44 12:44 MCV 88.0 MCH 27.7 MCHC 31.4 RDW 13.8 Plt Count 189 MPV 8.9 L Immature Gran % (Auto) 0.5 H Neut % (Auto) 79.2 H Lymph % (Auto) 9.7 L [place] % (Auto) 8.6 Eos % (Auto) 1.6 Baso % (Auto) 0.4 Lymph # (Auto) 1.0 L [place] # (Auto) 0.9 Eos # (Auto) 0.2 Baso # (Auto) 0.0 Abs Immat Gran (auto) 0.05 H Absolute Neuts (auto) 7.9 Absolute Nucleated RBC 0.000 Nucleated RBC % (auto) 0.0 PT INR Anion Gap 20 Estim Creat Clear Calc 39.8 Estimated GFR 26 POC Glucose Random Glucose 209 H Estimat Average Glucose Hemoglobin A1c % Lactic Acid 1.2 Calcium 8.6 Magnesium 2.3 Total Bilirubin 0.4 Direct Bilirubin < 0.2 AST 14 ALT 9 Alkaline Phosphatase 65 Troponin I High Sens B-Natriuretic Peptide Total Protein 7.1 Albumin 3.8 Lipase 7 L Urine Color Urine Appearance Urine pH Ur Specific [place] Urine Protein Urine Glucose (UA) Urine Ketones Urine Blood Urine Nitrite Ur Leukocyte Esterase COVID-19 ([facility]) COVID-19 Clin Com 09/08/22 09/08/22 09/08/22 12:44 12:44 12:44 MCV MCH MCHC RDW Plt Count MPV Immature Gran % (Auto) Neut % (Auto) Lymph % (Auto) [place] % (Auto) Eos % (Auto) Baso % (Auto) Lymph # (Auto) [place] # (Auto) Eos # (Auto) Baso # (Auto) Abs Immat Gran (auto) Absolute Neuts (auto) Absolute Nucleated RBC Nucleated RBC % (auto) PT INR Anion Gap Estim Creat Clear Calc Estimated GFR POC Glucose Random Glucose Estimat Average Glucose Hemoglobin A1c % Lactic Acid Calcium Magnesium Total Bilirubin Direct Bilirubin AST ALT Alkaline Phosphatase Troponin I High Sens 5.6 B-Natriuretic Peptide 63 Total Protein Albumin Lipase Urine Color Urine Appearance Urine pH Ur Specific [place] Urine Protein Urine Glucose (UA) Urine Ketones Urine Blood Urine Nitrite Ur Leukocyte Esterase COVID-19 ([facility]) Negative COVID-19 [facility] Com See Note 09/08/22 09/08/22 09/08/22 13:16 16:12 21:12 MCV MCH MCHC RDW Plt Count MPV Immature Gran % (Auto) Neut % (Auto) Lymph % (Auto) [place] % (Auto) Eos % (Auto) Baso % (Auto) Lymph # (Auto) [place] # (Auto) Eos # (Auto) Baso # (Auto) Abs Immat Gran (auto) Absolute Neuts (auto) Absolute Nucleated RBC Nucleated RBC % (auto) PT 9.9 L INR 0.9 Anion Gap Estim Creat Clear Calc Estimated GFR POC Glucose 202 H Random Glucose Estimat Average Glucose Hemoglobin A1c % Lactic Acid Calcium Magnesium Total Bilirubin Direct Bilirubin AST ALT Alkaline Phosphatase Troponin I High Sens 5.6 B-Natriuretic Peptide Total Protein Albumin Lipase Urine Color Urine Appearance Urine pH Ur Specific [place] Urine Protein Urine Glucose (UA) Urine Ketones Urine Blood Urine Nitrite Ur Leukocyte Esterase COVID-19 ([facility]) COVID-19 [facility] Com 09/09/22 09/09/22 09/09/22 05:51 07:12 10:00 MCV MCH MCHC RDW Plt Count MPV Immature Gran % (Auto) Neut % (Auto) Lymph % (Auto) [place] % (Auto) Eos % (Auto) Baso % (Auto) Lymph # (Auto) [place] # (Auto) Eos # (Auto) Baso # (Auto) Abs Immat Gran (auto) Absolute Neuts (auto) Absolute Nucleated RBC Nucleated RBC % (auto) PT INR Anion Gap 15 Estim Creat Clear Calc 45.7 Estimated GFR 30 POC Glucose 101 Random Glucose 160 H Estimat Average Glucose Hemoglobin A1c % Lactic Acid Calcium 8.6 Magnesium Total Bilirubin Direct Bilirubin AST ALT Alkaline Phosphatase Troponin I High Sens B-Natriuretic Peptide Total Protein Albumin Lipase Urine Color Yellow Urine Appearance Clear Urine pH 5.5 Ur Specific [place] 1.015 Urine Protein Negative Urine Glucose (UA) Negative Urine Ketones Negative Urine Blood Negative Urine Nitrite Negative Ur Leukocyte Esterase Negative COVID-19 ([facility]) COVID-[employer]! 09/09/22 09/09/22 10:00 10:57 MCV MCH MCHC RDW Plt Count MPV Immature Gran % (Auto) Neut % (Auto) Lymph % (Auto) [place] % (Auto) Eos % (Auto) Baso % (Auto) Lymph # (Auto) [place] # (Auto) Eos # (Auto) Baso # (Auto) Abs Immat Gran (auto) Absolute Neuts (auto) Absolute Nucleated RBC Nucleated RBC % (auto) PT INR Anion Gap Estim Creat Clear Calc Estimated GFR POC Glucose 170 H Random Glucose Estimat Average Glucose 177 Hemoglobin A1c % 7.8 Lactic Acid Calcium Magnesium Total Bilirubin Direct Bilirubin AST ALT Alkaline Phosphatase Troponin I High Sens B-Natriuretic Peptide Total Protein Albumin Lipase Urine Color Urine Appearance Urine pH Ur Specific [place] Urine Protein Urine Glucose (UA) Urine Ketones Urine Blood Urine Nitrite Ur Leukocyte Esterase COVID-19 ([facility]) COVID-19 [facility] Assessment and Plan (1) Hypertension: Status: Acute Plan 62-year-old female here with left hip pain and bilateral lower extremity swelling Intractable left hip pain due to left lumbar radiculopathy Persistent hip pain Outpatient MRI lumbar spine ordered by PCP on September 04 showed L5-S1 large left lateral disc protrusion with severe left-sided foraminal stenosis and compression of left 5th nerve root, early osteomyelitis diskitis could appear similar,L4-L5 moderate central canal stenosis, and left foraminal stenosis causing left L4 nerve compression. recent CT abdomen and pelvis without showed multilevel spondylosis lower thoracic and lumbar spine Will add prednisone, continue IV Dilaudid and oxycodone,pt. allergic to Tylenol and ibuprofen PT recommend short-term rehab Consult infectious disease due to concern for osteomyelitis/discitis, no history of IV drug use, no trauma, no fever, no WBC count. Acute on chronic kidney disease stage III Creatinine returned to baseline,avoid nephrotoxins ,all medication renally dosed, resume diuretics gradually, seen by Nephrology. Bilateral lower extremity swelling due to chronic stasis Likely due to Norvasc/hydralazine , prolong sitting, normal LFTs, no evidence of acute congestive heart failure, negative venous Doppler study for DVT No evidence of acute congestive heart failure exacerbation Norvasc dose changed to 5 mg, apply Tanmay wrap recommend to keep leg elevated , continue diuretics Chronic CHF with reduced EF no acute exacerbation with normal BNP and chest x-ray resume home medications Diabetes mellitus diabetic diet, insulin sliding scale and continue Lantus, follow blood sugar q.i.d. COPD no acute exacerbation continue a DuoNeb updraft, oxygen 94% on room air Obstructive sleep apnea, not using CPAP due to claustrophobia Morbid obesity recommended low-calorie diet Mood disorder resume all home medications Stage II coccyx pressure ulcer recommend frequent position change, weight loss barrier cream DVT prophylaxis with subcu heparin Code status full code patient will need continued inpatient stay due to intractable left hip pain with difficulty in ambulation requiring IV analgesics and for close follow-up on renal function. Time Spent With Patient Time: Total time managing care of this patient today ____ minutes. Quality Stroke Does the patient have a stroke diagnosis?: No VTE Prior VTE?: No VTE Risk Level:: Medical - moderate - high VTE Device Contraindication: Treatment Not Indicated VTE Drug Contraindication: N/A - Med Ordered
[2022-09-09] MEDS: oxyCODONE HCl Immed Release 5 MG TABLET PO (14:11)
[2022-09-09] MEDS: Bumetanide 1 MG TABLET PO (14:11)
[2022-09-09] MEDS: hydrALAZINE HCl 25 MG TABLET PO ×2 (14:12→20:40)
--- NOTE | 2022-09-09 15:17 | W.PM.IDCN ---
History of Present Illness Data of Consult Service Date: 09/09/22 Requesting physician: Davion Mccallum Primary Care Provider: Tavo Huber MD HPI Reason for consult: hip/back pain She presents with left hip pain worsening over last two weeks. She saw PCP Dr Huber and MRI w/o contrast was ordered and showed disk disease,mention made osteomyelitis is included in differentaila. Patient has no fever or chills and no difficulty walking except for pain ( no numbness or incontinence). Review of Systems Review of Systems: Yes all other systems are reviewed and are negative [facility] Past Medical History Medical History Abdominal pain Acute on chronic combined systolic and diastolic CHF (congestive heart failure) Adjustment disorder with mixed anxiety and depressed mood FELICIA (acute kidney injury) Asthma Cellulitis of right lower extremity CHF exacerbation Chronic pain Chronic respiratory failure with hypoxia CKD (chronic kidney disease) stage 3, GFR 30-59 ml/min Congestive heart failure Constipation COPD (chronic obstructive pulmonary disease) Decubitus ulcer Depression Diabetes Diabetic neuropathy, painful High cholesterol Hyperglycemia due to diabetes mellitus Hypertension Hypoxia MDD (major depressive disorder), recurrent episode, moderate Morbid obesity NICM (nonischemic cardiomyopathy) Obesity hypoventilation syndrome DANIEL (obstructive sleep apnea) Panic disorder Stasis dermatitis of both legs Stercoral colitis Uncontrolled type 2 diabetes mellitus with hyperglycemia Family History Family History Mother HTN (hypertension) Diabetes CAD (coronary artery disease) Father HTN (hypertension) Diabetes CAD (coronary artery disease) Maternal Grandmother CAD (coronary artery disease) Family history: reviewed and not pertinent Surgical History Surgical History Hx of cholecystectomy Social History Social History Household Members: None Household Members Other:: GRANDSON Housing: Apartment 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 [employer] Do you presently have visiting nurse or other home services: Yes Alcohol intake: unknown Patient Tobacco Use Status: Former Tobacco user Quit Date: 1999 Tobacco use type: Cigarette Years Smoked: 38 Second Hand Smoke Exposure: No Substance Use Type: Marijuana Advance Directives Date on File: 12/19/20 service: No Current occupational status: disabled Meds Allergies Allergy/AdvReac Type Severity Reaction Status Date / Time ibuprofen Allergy Intermediate vommiting, Verified 06/25/22 10:50 itching acetaminophen [Tylenol] Allergy Mild Unknown Verified 06/25/22 10:50 morphine AdvReac Intermediate vomiting Verified 06/25/22 10:50 Active Medications: Current Medications Albuterol Sulfate (Albuterol Sulfate 90 Mcg 8 Gm Inhaler) 2 puff INHALE Q4H PRN PRN Reason: Dyspnea Amlodipine Besylate (Amlodipine Besylate 5 Mg Tablet) 5 mg PO DAILY [facility]; Protocol Last Admin: 09/09/22 08:19 Dose: 5 mg Aspirin (Aspirin Enteric Coated 81 Mg Tablet.Dr) 81 mg PO DAILY [facility] Last Admin: 09/09/22 08:20 Dose: 81 mg Atorvastatin Calcium (Atorvastatin Calcium 10 Mg Tablet) 10 mg PO DAILY [facility] Last Admin: 09/09/22 08:20 Dose: 10 mg Benzonatate (Benzonatate 100 Mg Capsule) 100 mg PO TID PRN PRN Reason: Cough Bumetanide (Bumetanide 1 Mg Tablet) 1 mg PO DAILY [facility]; Protocol Last Admin: 09/09/22 14:11 Dose: 1 mg Dextrose (Dextrose 50 % 25 Gm/50 Ml Syringe) 25 gm IVPUSH Q15M PRN; Protocol PRN Reason: per Hypoglycemia Standing Ord. Docusate Sodium (Docusate Sodium 100 Mg Capsule) 100 mg PO DAILY PRN PRN Reason: Constipation Fluoxetine HCl (Fluoxetine Hcl 20 Mg Capsule) 40 mg PO DAILY [facility] Last Admin: 09/09/22 08:19 Dose: 40 mg Fluticasone Propionate (Fluticasone Propionate 100 Mcg Blst.W.Dev) 2 puff INHALE RBID [facility] Last Admin: 09/09/22 07:44 Dose: 2 puff Gabapentin (Gabapentin 400 Mg Capsule) 400 mg PO TID [facility] Last Admin: 09/09/22 14:12 Dose: 400 mg Glucose (Glucose Gel 15 Gm Gel..Gram.) 15 gm PO Q15M PRN; Protocol PRN Reason: per Hypoglycemia Standing Ord. Heparin Sodium (Porcine) (Heparin Sodium,Porcine 5,000 Unit/Ml Vial) 5,000 unit SUBCUT Q8H [facility] Last Admin: 09/09/22 08:20 Dose: 5,000 unit Hydralazine HCl (Hydralazine Hcl 25 Mg Tablet) 25 mg PO TID [facility]; Protocol Last Admin: 09/09/22 14:12 Dose: 25 mg Hydromorphone HCl (Hydromorphone Hcl 0.5 Mg/0.5 Ml Syringe) 0.5 mg IVPUSH Q4H PRN; Protocol PRN Reason: Pain, Severe (Pain Scale 7-10) Last Admin: 09/09/22 08:21 Dose: 0.5 mg Insulin Glargine (Insulin Glargine,Hum.Rec.Anlog 100 Unit/Ml 10 Ml Vial) 30 unit SUBCUT BEDTIME [facility] Last Admin: 09/08/22 21:39 Dose: 30 unit Insulin Human Lispro (Insulin Lispro 100 Unit/Ml 3 Ml Vial) 0 unit SUBCUT QIDACHS [facility]; Protocol Last Admin: 09/09/22 12:12 Dose: 2 unit Melatonin (Melatonin 3 Mg Tablet) 3 mg PO BEDTIME PRN PRN Reason: Insomnia Metoprolol Succinate (Metoprolol Succinate Er 50 Mg Tab.Er.24h) 50 mg PO DAILY [facility]; Protocol Last Admin: 09/09/22 08:19 Dose: 50 mg Nystatin (Nystatin Powder 15 Gm Bottle) 1 appl TOPICAL BID [facility]; Protocol Last Admin: 09/09/22 12:12 Dose: 1 appl Ondansetron HCl (Ondansetron Hcl 4 Mg/2 Ml Vial) 4 mg IVPUSH Q8H PRN PRN Reason: Nausea and Vomiting Oxycodone HCl (Oxycodone Hcl Immed Release 5 Mg Tablet) 5 mg PO Q6H PRN PRN Reason: Pain, Moderate (Pain Scale 4-6 Last Admin: 09/09/22 14:11 Dose: 5 mg Risperidone (Risperidone 1 Mg Tablet) 1 mg PO BID [facility] Last Admin: 09/09/22 08:20 Dose: 1 mg Sodium Chloride (0.9 % Sodium Chloride Flush 3 Ml Syringe) 3 ml IVFLUSH QSHIFT [facility] Last Admin: 09/09/22 08:20 Dose: 3 ml Tizanidine HCl (Tizanidine Hcl 4 Mg Tablet) 4 mg PO BEDTIME [facility] Last Admin: 09/08/22 20:33 Dose: 4 mg Vitamin D (Cholecalciferol (Vitamin D3) 25 Mcg Tablet) 25 mcg PO DAILY [facility] Last Admin: 09/09/22 08:21 Dose: 25 mcg Home Medications Medication Instructions Recorded Confirmed Last Taken Type albuterol sulfate 90 mcg/actuation 2 puff inhalation Q4H PRN Dyspnea 11/23/20 09/08/22 1 Day Ago History aerosol inhaler (ProAir HFA) ~03/31/21 aspirin 81 mg tablet,delayed 81 mg PO DAILY 11/23/20 09/08/22 09/08/22 History release fluoxetine 40 mg capsule 40 mg PO DAILY 11/23/20 09/08/22 09/08/22 History fluticasone propionate 110 2 puff inhalation BID 11/23/20 09/08/22 09/08/22 History mcg/actuation HFA aerosol inhaler (Flovent HFA) metoprolol succinate 50 mg 50 mg PO DAILY 11/23/20 09/08/22 09/08/22 History tablet,extended release 24 hr simvastatin 20 mg tablet 20 mg PO BEDTIME 11/23/20 09/08/22 09/07/22 History isosorbide mononitrate 30 mg 30 mg PO DAILY 12/11/20 09/08/22 09/08/22 History tablet,extended release 24 hr tizanidine 4 mg tablet 4 mg PO BEDTIME 12/11/20 09/08/22 09/07/22 History amlodipine 10 mg tablet 1 tab PO DAILY 06/07/21 09/08/22 09/08/22 History bumetanide 2 mg tablet 1 tab PO DAILY 06/07/21 09/08/22 09/08/22 History cholecalciferol (vitamin D3) 25 1 cap PO DAILY 06/07/21 09/08/22 09/08/22 History mcg (1,000 unit) capsule meclizine 25 mg tablet 25 mg PO TID PRN Dizziness 06/07/21 09/08/22 Unknown History risperidone 1 mg tablet 1 tab PO BID 04/20/22 09/08/22 09/08/22 History blood sugar diagnostic (FreeStyle #10 ea 06/25/22 06/25/22 Unknown History Lite Strips) insulin syringe-needle U-100 1 mL #10 ea 06/25/22 06/25/22 Unknown History 31 gauge x 5/16 (BD Insulin Syringe Ultra-Fine) lancets 28 gauge (FreeStyle #100 ea 06/25/22 06/25/22 Unknown History Lancets) clotrimazole 1 % topical cream 1 appl topical BID 09/08/22 09/08/22 Unknown History gabapentin 400 mg capsule 400 mg PO TID 09/08/22 09/08/22 09/08/22 History insulin glargine 100 unit/mL 50 unit subcut BID 09/08/22 09/08/22 09/08/22 History subcutaneous solution (Lantus U-100 Insulin) nystatin 100,000 unit/gram topical 1 appl topical BID 09/08/22 09/08/22 Unknown History powder silver sulfadiazine 1 % topical 1 appl topical BID 09/08/22 09/08/22 09/08/22 History cream Physical Exam Vital Signs: Vital Signs: Last Vital Signs Temp 99.0 F 09/09/22 07:13 Pulse 82 09/09/22 14:15 Resp 15 09/09/22 07:46 BP 165/58 H 09/09/22 14:15 Pulse Ox 94 09/09/22 08:51 O2 Del Method 09/09/22 07:13 O2 Flow Rate 2 09/09/22 07:13 BMI result Body Mass Index 54.8 Const: General: cooperative HEENT: Head: Yes normal to inspection Face and sinus: Yes normal facial exam Mouth: Normal oral and palatal mucosa present Teeth and gingiva: dentition normal Eyes: General: appearance normal, both eyes and all related structures Pupils: Equal, round and reactive pupils present Resp: Effort & Inspection: normal respiratory effort Cardio: Rate: regular rate Rhythm: regular rhythm GI: Palpation (GI): Soft to palpation and nontender : General: Yes no CVA tenderness Back/Spine/Pelvis: Back: no CVA tenderness Skin: General skin exam: no rashes or lesions noted Neuro: General: moves all extremities Cranial nerves: Yes Equal, round and reactive pupils present Extrem: General: Yes normal to inspection Psych: Appearance: grossly normal Results Labs 09/08/22 12:44 09/09/22 10:00 Labs: BMP 09/09/22 10:00 Sodium 140 Potassium 5.0 Chloride 101 Carbon Dioxide 29 BUN 83 H Creatinine 1.72 H Calcium 8.6 Urine 09/09/22 Range/Units 05:51 Urine Color Yellow Urine Appearance Clear Urine pH 5.5 (5.0-9.0) Ur Specific [place] 1.015 (1.005-1.025) Urine Protein Negative (Neg-Trace) mg/dL Urine Glucose (UA) Negative (Negative) mg/dL Microbiology Microbiology Results: Microbiology 09/08/22 12:44 Blood - Venous Blood Culture - Preliminary No growth after 24 hours. Assessment and Plan (1) Back pain: Status: Acute She doesnt have neurologic deficit in back or fever. Osteomyelitis is less likely Plan Would not give antibiotics. Would check ESR and especially if under 80 doubt osteomyelitis. If fever or suspect consider tagged WBC scan. Time Spent With Patient Time: Total time managing care of this patient today ____ minutes.
[2022-09-09 15:39] LABS: Erythrocyte Sedimentation Rate 86 MM/HR (0-20)
[2022-09-09 16:05] LABS: Glucose, Whole Blood 201 mg/dL (60-115)
[2022-09-09 20:05] LABS: Glucose, Whole Blood 218 mg/dL (60-115)
[2022-09-09] MEDS: Insulin Glargine,Hum.rec.anlog 100 UNIT/ML 10 ML VIAL 30 UNIT SUBCUT (20:39)
[2022-09-09] MEDS: Melatonin 3 MG TABLET PO (20:40)
[2022-09-09] MEDS: TiZANidine HCL 4 MG TABLET PO (20:41)
[2022-09-10] VITALS (7 sets, daily range): BP systolic 105–136; BP diastolic 51–61; PULSE 71–93; RESP 18–20; TEMP 36–37.2; O2SAT 91–97
[2022-09-10] MEDS: Heparin Sodium,Porcine 5,000 UNIT/ML VIAL 5000 UNIT SUBCUT ×3 (02:05→16:52)
[2022-09-10] MEDS: HYDROmorphone HCl 0.5 MG/0.5 ML SYRINGE IVPUSH ×4 (04:48→20:03)
[2022-09-10 07:14] LABS: Glucose, Whole Blood 209 mg/dL (60-115)
[2022-09-10 07:15] LABS: Anion Gap 14 (12-20); Blood Urea Nitrogen 84 mg/dL (9-16); Calcium 8.6 mg/dL (8.4-10.2); Carbon Dioxide 31 mmol/L (22-29); Chloride 102 mmol/L (96-108); Creatinine Clr Calc Pharmacy 46.1; Estimated Glomerular Filt Rate 30; Glucose Random 180 mg/dL (60-115); Potassium 4.7 mmol/L (3.3-5.1); Sodium 142 mmol/L (135-145)
[2022-09-10] MEDS: Fluticasone Propionate 100 MCG BLST.W.DEV 2 PUFF INHALE (08:06)
[2022-09-10] MEDS: FLUoxetine HCl 20 MG CAPSULE 40 MG PO (08:36)
[2022-09-10] MEDS: Gabapentin 400 MG CAPSULE PO ×3 (08:37→20:26)
[2022-09-10] MEDS: Aspirin Enteric Coated 81 MG TABLET.DR PO (08:37)
[2022-09-10] MEDS: Atorvastatin Calcium 10 MG TABLET PO (08:37)
[2022-09-10] MEDS: Metoprolol Succinate ER 50 MG TAB.ER.24H PO (08:37)
[2022-09-10] MEDS: amLODIPine Besylate 5 MG TABLET PO (08:37)
[2022-09-10] MEDS: risperiDONE 1 MG TABLET PO ×2 (08:38→20:26)
[2022-09-10] MEDS: Cholecalciferol (Vitamin D3) 25 MCG TABLET PO (08:38)
[2022-09-10] MEDS: hydrALAZINE HCl 25 MG TABLET PO ×3 (08:38→20:26)
[2022-09-10] MEDS: Bumetanide 1 MG TABLET PO (08:38)
[2022-09-10] MEDS: Insulin Lispro 100 UNIT/ML 3 ML VIAL SUBCUT ×4 (08:39→20:59)
[2022-09-10] MEDS: 0.9 % Sodium Chloride Flush 3 ML SYRINGE IVFLUSH ×3 (08:39→20:27)
--- NOTE | 2022-09-10 09:12 | MHC.CLN ---
F/U PT WITH INCREASED NUTRITION RISK R/T PRESSURE INJURY DIET RX: 2000DM-APPROPRIATE PT RECEIVING ENSURE MAX BID TO PROMOTE WOUND HEALING SUPP TO PROVIDE 300KCALS, 60G PROTEIN MONITOR PO INTAKE CLOSELY
--- NOTE | 2022-09-10 10:48 | PM.PNNEP ---
Subjective Subjective Date of Service: 09/11/22 Interval history: Complaining of left hip pain, worse with activity, ongoing symptoms x2 weeks, denies urinary or bowel incontinence, tolerating diet with no nausea, no vomiting, no abdominal pain, no acute events overnight. Physical Exam Vital Signs: Vital Signs: Last Vital Signs Temp 96.8 F 09/10/22 07:23 Pulse 74 09/10/22 08:09 Resp 18 09/10/22 08:09 BP 132/61 09/10/22 07:23 Pulse Ox 97 09/10/22 07:23 O2 Del Method 09/10/22 07:23 O2 Flow Rate 2 09/10/22 07:23 BMI result Body Mass Index 54.8 Const: Other: General resting comfortably in no acute distress.? Neck no JVD. CVS? regular rate rhythm, Respiratory lungs clear to auscultation, no respiratory distress, no wheeze, no rhonchi. Gastrointestinal abdomen soft, obese, nontender, bowel sounds audible, no guarding , no rigidity. Extremities bilateral pitting edema, good peripheral pulses. Left hip pain with flexion-extension, no shortening of leg no loss of function Neuro nonfocal Skin no rash Psych appropriate affect General: healthy appearing Neck: Neck: Yes normal visual inspection Resp: Effort & Inspection: no respiratory distress Cardio: Rhythm: regular rhythm Heart sounds: S1 normal heart sound present GI: Palpation (GI): nontender and no guarding Extrem: General: Yes edema (+4 pitting bilaterally ) Objective Data Labs 09/08/22 12:44 09/10/22 06:47 Labs: Laboratory Results - last 24 hr 09/09/22 09/09/22 09/09/22 10:57 14:51 15:43 ESR 86 H Sodium Potassium Chloride Carbon Dioxide Anion Gap BUN Creatinine Estim Creat Clear Calc Estimated GFR POC Glucose 170 H 201 H Random Glucose Calcium 09/09/22 09/10/22 09/10/22 19:49 06:47 07:10 ESR Sodium 142 Potassium 4.7 Chloride 102 Carbon Dioxide 31 H Anion Gap 14 BUN 84 H Creatinine 1.71 H Estim Creat Clear Calc 46.1 Estimated GFR 30 POC Glucose 218 H 209 H Random Glucose 180 H Calcium 8.6 Microbiology Microbiology Results: Microbiology 09/08/22 13:15 Blood - Venous Blood Culture - Preliminary No growth after 24 hours. 09/08/22 12:44 Blood - Venous Blood Culture - Preliminary No growth after 24 hours. Procedures Date of Service Date of Service: 09/10/22 Assessment & Plan Assessment and plan (1) Acute kidney injury superimposed on CKD: Status: Acute (2) CKD (chronic kidney disease) stage 3, GFR 30-59 ml/min: Status: Acute (3) Hypertension: Status: Acute Plan Suggest Optimize BP Amlodipine 5 mg QD Keep O > I with current Bumex 1 mg QD and titrate 2 gm Na diet Recheck labs Can change Hydralazine to 25 mg TID and titrate dose AVOID hypotension Time Spent With Patient Time: Total time managing care of this patient today ____ minutes. Progress Note: Quality Stroke Does the patient have a stroke diagnosis?: No
[2022-09-10 11:12] LABS: Glucose, Whole Blood 219 mg/dL (60-115)
[2022-09-10] MEDS: Nystatin Powder 15 GM BOTTLE 1 APPL TOPICAL (11:37)
[2022-09-10] MEDS: oxyCODONE HCl Immed Release 5 MG TABLET PO ×2 (11:37→22:34)
--- NOTE | 2022-09-10 13:13 | P.PNIM_ITS ---
Subjective Subjective Date of Service: 09/10/22 Interval History: Patient screaming that she wants to be left alone refusing to be out of bed to chair, not answering questions. No acute events overnight tolerating diet no nausea, no vomiting vitals are stable. Review of Systems Review of Systems: Yes Unobtainable due to mental status Physical Exam Vital Signs: Vital Signs: Last Vital Signs Temp 96.8 F 09/10/22 07:23 Pulse 74 09/10/22 08:09 Resp 18 09/10/22 08:09 BP 132/61 09/10/22 07:23 Pulse Ox 97 09/10/22 07:23 O2 Del Method 09/10/22 07:23 O2 Flow Rate 2 09/10/22 07:23 BMI result Body Mass Index 54.8 Const: Other: General resting comfortably in no acute distress.? Neck no JVD. CVS? regular rate rhythm, reproducible right chest discomfort Respiratory lungs clear to auscultation, no respiratory distress Gastrointestinal abdomen soft, obese, Extremities bilateral pitting edema, good peripheral pulses. Left hip not cooperating with exam Neuro nonfocal, clear speech moving all 4 extremities no facial asymmetry Skin no rash Psych anxious Objective Data Active Medications Albuterol Sulfate (Albuterol Sulfate 90 Mcg 8 Gm Inhaler) 2 puff INHALE Q4H PRN PRN Reason: Dyspnea Amlodipine Besylate (Amlodipine Besylate 5 Mg Tablet) 5 mg PO DAILY [facility]; Protocol Last Admin: 09/10/22 08:37 Dose: 5 mg Documented By: JANET Aspirin (Aspirin Enteric Coated 81 Mg Tablet.) 81 mg PO DAILY [facility] Last Admin: 09/10/22 08:37 Dose: 81 mg Documented By: JANET Atorvastatin Calcium (Atorvastatin Calcium 10 Mg Tablet) 10 mg PO DAILY [facility] Last Admin: 09/10/22 08:37 Dose: 10 mg Documented By: JANET Benzonatate (Benzonatate 100 Mg Capsule) 100 mg PO TID PRN PRN Reason: Cough Bumetanide (Bumetanide 1 Mg Tablet) 1 mg PO DAILY [facility]; Protocol Last Admin: 09/10/22 08:38 Dose: 1 mg Documented By: JANET Dextrose (Dextrose 50 % 25 Gm/50 Ml Syringe) 25 gm IVPUSH Q15M PRN; Protocol PRN Reason: per Hypoglycemia Standing Ord. Docusate Sodium (Docusate Sodium 100 Mg Capsule) 100 mg PO DAILY PRN PRN Reason: Constipation Fluoxetine HCl (Fluoxetine Hcl 20 Mg Capsule) 40 mg PO DAILY [facility] Last Admin: 09/10/22 08:36 Dose: 40 mg Documented By: JANET Fluticasone Propionate (Fluticasone Propionate 100 Mcg Blst.W.Dev) 2 puff INHALE RBID [facility] Last Admin: 09/10/22 08:06 Dose: 2 puff Documented By: CRISTY Gabapentin (Gabapentin 400 Mg Capsule) 400 mg PO TID [facility] Last Admin: 09/10/22 08:37 Dose: 400 mg Documented By: JANET Glucose (Glucose Gel 15 Gm Gel..Gram.) 15 gm PO Q15M PRN; Protocol PRN Reason: per Hypoglycemia Standing Ord. Heparin Sodium (Porcine) (Heparin Sodium,Porcine 5,000 Unit/Ml Vial) 5,000 unit SUBCUT Q8H [facility] Last Admin: 09/10/22 08:38 Dose: 5,000 unit Documented By: JANET Hydralazine HCl (Hydralazine Hcl 25 Mg Tablet) 25 mg PO TID [facility]; Protocol Last Admin: 09/10/22 08:38 Dose: 25 mg Documented By: JANET Hydromorphone HCl (Hydromorphone Hcl 0.5 Mg/0.5 Ml Syringe) 0.5 mg IVPUSH Q4H PRN; Protocol PRN Reason: Pain, Severe (Pain Scale 7-10) Last Admin: 09/10/22 09:09 Dose: 0.5 mg Documented By: JANET Insulin Glargine (Insulin Glargine,Hum.Rec.Anlog 100 Unit/Ml 10 Ml Vial) 30 unit SUBCUT BEDTIME [facility] Last Admin: 09/09/22 20:39 Dose: 30 unit Documented By: ARMEN Insulin Human Lispro (Insulin Lispro 100 Unit/Ml 3 Ml Vial) 0 unit SUBCUT QIDACHS [facility]; Protocol Last Admin: 09/10/22 11:38 Dose: 4 unit Documented By: NALLELY Melatonin (Melatonin 3 Mg Tablet) 3 mg PO BEDTIME PRN PRN Reason: Insomnia Last Admin: 09/09/22 20:40 Dose: 3 mg Documented By: ARMEN Metoprolol Succinate (Metoprolol Succinate Er 50 Mg Tab.Er.24h) 50 mg PO DAILY [facility]; Protocol Last Admin: 09/10/22 08:37 Dose: 50 mg Documented By: JANET Nystatin (Nystatin Powder 15 Gm Bottle) 1 appl TOPICAL BID [facility]; Protocol Last Admin: 09/10/22 11:37 Dose: 1 appl Documented By: NALLELY Ondansetron HCl (Ondansetron Hcl 4 Mg/2 Ml Vial) 4 mg IVPUSH Q8H PRN PRN Reason: Nausea and Vomiting Oxycodone HCl (Oxycodone Hcl Immed Release 5 Mg Tablet) 5 mg PO Q6H PRN PRN Reason: Pain, Moderate (Pain Scale 4-6 Last Admin: 09/10/22 11:37 Dose: 5 mg Documented By: NALLELY Risperidone (Risperidone 1 Mg Tablet) 1 mg PO BID [facility] Last Admin: 09/10/22 08:38 Dose: 1 mg Documented By: JANET Sodium Chloride (0.9 % Sodium Chloride Flush 3 Ml Syringe) 3 ml IVFLUSH QSHIFT [facility] Last Admin: 09/10/22 08:39 Dose: 3 ml Documented By: JANET Tizanidine HCl (Tizanidine Hcl 4 Mg Tablet) 4 mg PO BEDTIME [facility] Last Admin: 09/09/22 20:41 Dose: 4 mg Documented By: ARMEN Vitamin D (Cholecalciferol (Vitamin D3) 25 Mcg Tablet) 25 mcg PO DAILY [facility] Last Admin: 09/10/22 08:38 Dose: 25 mcg Documented By: JANET Labs 09/08/22 12:44 09/10/22 06:47 Labs: Laboratory Results - last 24 hr 09/09/22 09/09/22 09/09/22 14:51 15:43 19:49 ESR 86 H Anion Gap Estim Creat Clear Calc Estimated GFR POC Glucose 201 H 218 H Random Glucose Calcium 09/10/22 09/10/22 09/10/22 06:47 07:10 11:09 ESR Anion Gap 14 Estim Creat Clear Calc 46.1 Estimated GFR 30 POC Glucose 209 H 219 H Random Glucose 180 H Calcium 8.6 Microbiology Microbiology Results: Microbiology 09/08/22 13:15 Blood Culture - Preliminary Blood - Venous No growth after 24 hours. 09/08/22 12:44 Blood Culture - Preliminary Blood - Venous No growth after 24 hours. Assessment and Plan (1) Hypertension: Status: Acute Plan 62-year-old female here with left hip pain and bilateral lower extremity swelling Intractable left hip pain due to left lumbar radiculopathy Persistent hip pain Outpatient MRI lumbar spine ordered by PCP on September 04 showed L5-S1 large left lateral disc protrusion with severe left-sided foraminal stenosis and compression of left 5th nerve root, early osteomyelitis diskitis could appear similar,L4-L5 moderate central canal stenosis, and left foraminal stenosis causing left L4 nerve compression. 08/25/22 CT abdomen and pelvis without contrast showed multilevel spondylosis lower thoracic and lumbar spine on prednisone, IV Dilaudid and oxycodone,pt. allergic to Tylenol and ibuprofen PT recommend short-term rehab ESR 86 case discussed with ID will obtain WBC scan that will be done tomorrow due to concern for osteomyelitis/discitis, no history of IV drug use, no trauma, no fever, nl WBC count. Acute on chronic kidney disease stage III Creatinine returned to baseline,avoid nephrotoxins ,all medication renally dosed, resume diuretics gradually, being followed by Nephrology. Bilateral lower extremity swelling due to chronic stasis Likely due to Norvasc/hydralazine , prolong sitting, normal LFTs, no evidence of acute congestive heart failure, negative venous Doppler study for DVT No evidence of acute congestive heart failure exacerbation Norvasc dose changed to 5 mg, apply Tanmay wrap recommend to keep leg elevated , continue diuretics Bumex 1 mg, at home was on Bumex 2 mg at a.m. and 1 mg at p.m. likely noncompliant Chronic CHF with reduced EF no acute exacerbation with normal BNP and chest x- ray, continue metoprolol and Bumex Diabetes mellitus diabetic diet, insulin sliding scale and on Lantus 30 units at bedtime,( home dose 50 units b.i.d.) follow blood sugar q.i.d. COPD no acute exacerbation continue a DuoNeb updraft, oxygen 94% on room air Obstructive sleep apnea, not using CPAP due to claustrophobia Morbid obesity recommended low-calorie diet Mood disorder resume all home medications Stage II coccyx pressure ulcer recommend frequent position change, weight loss barrier cream Right-sided chest pain reassured patient will give Tylenol and hot pack DVT prophylaxis with subcu heparin Code status full code patient will need continued inpatient stay due to intractable left hip pain with difficulty in ambulation requiring IV analgesics and for close follow-up on renal function. Time Spent With Patient Time: Total time managing care of this patient today ____ minutes. Quality Stroke Does the patient have a stroke diagnosis?: No VTE Prior VTE?: No VTE Risk Level:: Medical - moderate - high VTE Device Contraindication: Treatment Not Indicated VTE Drug Contraindication: N/A - Med Ordered
[2022-09-10 15:55] LABS: Glucose, Whole Blood 188 mg/dL (60-115)
[2022-09-10] MEDS: TiZANidine HCL 4 MG TABLET PO (20:27)
[2022-09-10 20:46] LABS: Glucose, Whole Blood 212 mg/dL (60-115)
[2022-09-10] MEDS: Insulin Glargine,Hum.rec.anlog 100 UNIT/ML 10 ML VIAL 30 UNIT SUBCUT (20:59)
[2022-09-10] MEDS: Melatonin 3 MG TABLET PO (22:37)
[2022-09-11] VITALS (9 sets, daily range): BP systolic 110–149; BP diastolic 48–64; PULSE 87–100; RESP 16–20; TEMP 36.6–37.6; O2SAT 93–98
[2022-09-11] MEDS: Heparin Sodium,Porcine 5,000 UNIT/ML VIAL 5000 UNIT SUBCUT ×3 (02:40→17:42)
[2022-09-11] MEDS: HYDROmorphone HCl 0.5 MG/0.5 ML SYRINGE IVPUSH ×4 (02:40→21:43)
[2022-09-11] MEDS: Docusate Sodium 100 MG CAPSULE PO (05:37)
[2022-09-11] MEDS: oxyCODONE HCl Immed Release 5 MG TABLET PO ×2 (05:37→17:42)
--- NOTE | 2022-09-11 06:10 | ECG_ITS ---
Test Reason : chest pain Blood Pressure : / mmHG Vent. Rate : 091 BPM Atrial Rate : 091 BPM P-R Int : 148 ms QRS Dur : 104 ms QT Int : 400 ms P-R-T Axes : 056 034 071 degrees QTc Int : 492 ms Normal sinus rhythm Prolonged QT Abnormal ECG When compared with ECG of 08-SEP-2022 12:54, No significant change was found Referred By: Bhargav Atkins Electronically Signed By:LUDA VICTORIA
[2022-09-11 07:28] LABS: Glucose, Whole Blood 222 mg/dL (60-115)
[2022-09-11] MEDS: Fluticasone Propionate 100 MCG BLST.W.DEV 2 PUFF INHALE ×2 (08:35→20:37)
[2022-09-11] MEDS: Insulin Lispro 100 UNIT/ML 3 ML VIAL SUBCUT ×4 (08:44→21:43)
[2022-09-11] MEDS: Bumetanide 1 MG TABLET PO (08:45)
[2022-09-11] MEDS: FLUoxetine HCl 20 MG CAPSULE 40 MG PO (08:45)
[2022-09-11] MEDS: hydrALAZINE HCl 25 MG TABLET PO ×3 (08:45→21:42)
[2022-09-11] MEDS: Gabapentin 400 MG CAPSULE PO ×3 (08:45→21:41)
[2022-09-11] MEDS: Metoprolol Succinate ER 50 MG TAB.ER.24H PO (08:46)
[2022-09-11] MEDS: 0.9 % Sodium Chloride Flush 3 ML SYRINGE IVFLUSH ×3 (08:46→21:44)
[2022-09-11] MEDS: risperiDONE 1 MG TABLET PO ×2 (08:46→21:41)
[2022-09-11] MEDS: Aspirin Enteric Coated 81 MG TABLET.DR PO (08:46)
[2022-09-11] MEDS: Atorvastatin Calcium 10 MG TABLET PO (08:46)
[2022-09-11] MEDS: amLODIPine Besylate 5 MG TABLET PO (08:46)
[2022-09-11] MEDS: Cholecalciferol (Vitamin D3) 25 MCG TABLET PO (08:47)
[2022-09-11] MEDS: Nystatin Powder 15 GM BOTTLE 1 APPL TOPICAL (08:47)
[2022-09-11 11:13] LABS: Glucose, Whole Blood 216 mg/dL (60-115)
--- NOTE | 2022-09-11 12:41 | P.PNIM_ITS ---
Subjective Subjective Date of Service: 09/11/22 Interval History: seen and examined this morning follow up for left leg pain/back pain reports ongoing left leg pain, back pain Review of Systems Review of Systems: Yes all other systems are reviewed and are negative Constitutional Constitutional: Denies chills and Denies fever(s) Cardiovascular Cardiovascular: Denies chest pain, Denies palpitations and Denies dyspnea Respiratory Respiratory: Denies cough and Denies dyspnea Gastrointestinal Gastrointestinal: Denies abdominal pain Endocrine Endocrine: Denies palpitations Physical Exam Vital Signs: Vital Signs: Last Vital Signs Temp 98.5 F 09/11/22 08:00 Pulse 87 09/11/22 08:37 Resp 18 09/11/22 08:37 BP 110/52 L 09/11/22 08:00 Pulse Ox 96 09/11/22 08:00 O2 Del Method 09/11/22 08:00 O2 Flow Rate 2 09/11/22 08:00 BMI result Body Mass Index 54.8 Const: General: comfortable, no acute distress, alert and awake Nutritional Appearance: obese Resp: Effort & Inspection: normal respiratory effort and able to speak in complete sentences Cardio: Rate: regular rate Heart sounds: S1 normal heart sound present and S2 normal heart sound present GI: Inspection: No distended and Yes obesity Palpation (GI): Soft to palpation Extrem: Other: b/l lower extremities wrapped in TANMAY wraps exam difficult, patient able to wiggle toes, bend both knees and lift both legs against gravity. patient states that all this causes pain in all 10 toes, left hip, and back Objective Data Active Medications Albuterol Sulfate (Albuterol Sulfate 90 Mcg 8 Gm Inhaler) 2 puff INHALE Q4H PRN PRN Reason: Dyspnea Amlodipine Besylate (Amlodipine Besylate 5 Mg Tablet) 5 mg PO DAILY [facility]; Protocol Last Admin: 09/11/22 08:46 Dose: 5 mg Documented By: JANET Aspirin (Aspirin Enteric Coated 81 Mg Tablet.) 81 mg PO DAILY [facility] Last Admin: 09/11/22 08:46 Dose: 81 mg Documented By: JANET Atorvastatin Calcium (Atorvastatin Calcium 10 Mg Tablet) 10 mg PO DAILY [facility] Last Admin: 09/11/22 08:46 Dose: 10 mg Documented By: JANET Benzonatate (Benzonatate 100 Mg Capsule) 100 mg PO TID PRN PRN Reason: Cough Bumetanide (Bumetanide 1 Mg Tablet) 1 mg PO DAILY [facility]; Protocol Last Admin: 09/11/22 08:45 Dose: 1 mg Documented By: JANET Dextrose (Dextrose 50 % 25 Gm/50 Ml Syringe) 25 gm IVPUSH Q15M PRN; Protocol PRN Reason: per Hypoglycemia Standing Ord. Docusate Sodium (Docusate Sodium 100 Mg Capsule) 100 mg PO DAILY PRN PRN Reason: Constipation Last Admin: 09/11/22 05:37 Dose: 100 mg Documented By: TANVIR Fluoxetine HCl (Fluoxetine Hcl 20 Mg Capsule) 40 mg PO DAILY [facility] Last Admin: 09/11/22 08:45 Dose: 40 mg Documented By: JANET Fluticasone Propionate (Fluticasone Propionate 100 Mcg Blst.W.Dev) 2 puff INHALE RBID [facility] Last Admin: 09/11/22 08:35 Dose: 2 puff Documented By: DANIELA Gabapentin (Gabapentin 400 Mg Capsule) 400 mg PO TID [facility] Last Admin: 09/11/22 08:45 Dose: 400 mg Documented By: JANET Glucose (Glucose Gel 15 Gm Gel..Gram.) 15 gm PO Q15M PRN; Protocol PRN Reason: per Hypoglycemia Standing Ord. Heparin Sodium (Porcine) (Heparin Sodium,Porcine 5,000 Unit/Ml Vial) 5,000 unit SUBCUT Q8H [facility] Last Admin: 09/11/22 08:46 Dose: 5,000 unit Documented By: JANET Hydralazine HCl (Hydralazine Hcl 25 Mg Tablet) 25 mg PO TID [facility]; Protocol Last Admin: 09/11/22 08:45 Dose: 25 mg Documented By: JANET Hydromorphone HCl (Hydromorphone Hcl 0.5 Mg/0.5 Ml Syringe) 0.5 mg IVPUSH Q4H PRN; Protocol PRN Reason: Pain, Severe (Pain Scale 7-10) Last Admin: 09/11/22 12:30 Dose: 0.5 mg Documented By: JANET Insulin Glargine (Insulin Glargine,Hum.Rec.Anlog 100 Unit/Ml 10 Ml Vial) 30 unit SUBCUT BEDTIME [facility] Last Admin: 09/10/22 20:59 Dose: 30 unit Documented By: TANVIR Insulin Human Lispro (Insulin Lispro 100 Unit/Ml 3 Ml Vial) 0 unit SUBCUT QIDACHS [facility]; Protocol Last Admin: 09/11/22 12:26 Dose: 4 unit Documented By: JANET Melatonin (Melatonin 3 Mg Tablet) 3 mg PO BEDTIME PRN PRN Reason: Insomnia Last Admin: 09/10/22 22:37 Dose: 3 mg Documented By: TANVIR Metoprolol Succinate (Metoprolol Succinate Er 50 Mg Tab.Er.24h) 50 mg PO DAILY [facility]; Protocol Last Admin: 09/11/22 08:46 Dose: 50 mg Documented By: JANET Nystatin (Nystatin Powder 15 Gm Bottle) 1 appl TOPICAL BID [facility]; Protocol Last Admin: 09/11/22 08:47 Dose: 1 appl Documented By: JANET Ondansetron HCl (Ondansetron Hcl 4 Mg/2 Ml Vial) 4 mg IVPUSH Q8H PRN PRN Reason: Nausea and Vomiting Oxycodone HCl (Oxycodone Hcl Immed Release 5 Mg Tablet) 5 mg PO Q6H PRN PRN Reason: Pain, Moderate (Pain Scale 4-6 Last Admin: 09/11/22 05:37 Dose: 5 mg Documented By: TANVIR Risperidone (Risperidone 1 Mg Tablet) 1 mg PO BID [facility] Last Admin: 09/11/22 08:46 Dose: 1 mg Documented By: JANET Sodium Chloride (0.9 % Sodium Chloride Flush 3 Ml Syringe) 3 ml IVFLUSH QSHIFT [facility] Last Admin: 09/11/22 08:46 Dose: 3 ml Documented By: JANET Tizanidine HCl (Tizanidine Hcl 4 Mg Tablet) 4 mg PO BEDTIME [facility] Last Admin: 09/10/22 20:27 Dose: 4 mg Documented By: TANVIR Vitamin D (Cholecalciferol (Vitamin D3) 25 Mcg Tablet) 25 mcg PO DAILY [facility] Last Admin: 09/11/22 08:47 Dose: 25 mcg Documented By: JANET Labs 09/08/22 12:44 09/10/22 06:47 Labs: Laboratory Results - last 24 hr 09/10/22 09/10/22 09/11/22 15:38 20:41 07:22 POC Glucose 188 H 212 H 222 H 09/11/22 11:07 POC Glucose 216 H Microbiology Microbiology Results: Microbiology 09/08/22 13:15 Blood Culture - Preliminary Blood - Venous No growth after 48 hours. 09/08/22 12:44 Blood Culture - Preliminary Blood - Venous No growth after 48 hours. Assessment and Plan (1) Acute kidney injury superimposed on CKD: Status: Acute (2) Back pain: Status: Acute Plan 62-year-old female here with left hip pain and bilateral lower extremity swelling Intractable left hip pain due to left lumbar radiculopathy Persistent hip pain Outpatient MRI lumbar spine ordered by PCP on September 04 showed L5-S1 large left lateral disc protrusion with severe left-sided foraminal stenosis and compression of left 5th nerve root, early osteomyelitis diskitis could appear similar,L4-L5 moderate central canal stenosis, and left foraminal stenosis causing left L4 nerve compression. 08/25/22 CT abdomen and pelvis without contrast showed multilevel spondylosis lower thoracic and lumbar spine continue IV Dilaudid and oxycodone,pt. allergic to Tylenol and ibuprofen PT recommend short-term rehab ESR 86 case discussed with ID will obtain WBC scan that will be done tomorrow due to concern for osteomyelitis/discitis, no history of IV drug use, no trauma, no fever, nl WBC count. Acute on chronic kidney disease stage III Creatinine returned to baseline,avoid nephrotoxins,all medication renally dosed, resume diuretics gradually Nephrology following Bilateral lower extremity swelling due to chronic stasis Likely due to Norvasc/hydralazine , prolong sitting, normal LFTs, no evidence of acute congestive heart failure, negative venous Doppler study for DVT No evidence of acute congestive heart failure exacerbation Norvasc dose decreased to 5 mg, apply Tanmay wrap recommend to keep leg elevated , continue diuretics Bumex 1 mg, at home was on Bumex 2 mg at a.m. and 1 mg at p.m. likely noncompliant Chronic CHF with reduced EF no acute exacerbation with normal BNP and chest x- ray, continue metoprolol and Bumex (on decreased dose of bumex as above) aldactone on hold isosorbide on hold Diabetes mellitus diabetic diet, insulin sliding scale and on Lantus 30 units at bedtime (home dose 50 units b.i.d.) follow blood sugar q.i.d. COPD no acute exacerbation continue a Allison meier, oxygen 94% on room air Obstructive sleep apnea, not using CPAP due to claustrophobia Morbid obesity recommended low-calorie diet Mood disorder resume all home medications Stage II coccyx pressure - seen by wound care, present on admission. pt has chronic moisture dermatitis and less likely r/t pressure. recommend frequent position change, weight loss, barrier cream DVT prophylaxis with subcu heparin Code status full code attending - dr. lee patient will need continued inpatient stay due to intractable left hip pain with difficulty in ambulation requiring IV analgesics Time Spent With Patient Time: Total time managing care of this patient today ____ minutes. Quality Stroke Does the patient have a stroke diagnosis?: No VTE Prior VTE?: No VTE Risk Level:: Medical - moderate - high VTE Device Contraindication: Treatment Not Indicated VTE Drug Contraindication: N/A - Med Ordered
--- NOTE | 2022-09-11 13:25 | PM.PNNEP ---
Subjective Subjective Date of Service: 10/06/22 Interval history: Events noted Physical Exam Vital Signs: Vital Signs: Last Vital Signs Temp 98.5 F 09/11/22 08:00 Pulse 87 09/11/22 08:37 Resp 18 09/11/22 08:37 BP 110/52 L 09/11/22 08:00 Pulse Ox 96 09/11/22 08:00 O2 Del Method 09/11/22 08:00 O2 Flow Rate 2 09/11/22 08:00 BMI result Body Mass Index 54.8 Const: Other: General resting comfortably in no acute distress.? Neck no JVD. CVS? regular rate rhythm, Respiratory lungs clear to auscultation, no respiratory distress, no wheeze, no rhonchi. Gastrointestinal abdomen soft, obese, nontender, bowel sounds audible, no guarding , no rigidity. Extremities bilateral pitting edema, good peripheral pulses. Left hip pain with flexion-extension, no shortening of leg no loss of function Neuro nonfocal Skin no rash Psych appropriate affect Objective Data Labs 09/08/22 12:44 09/10/22 06:47 Labs: Laboratory Results - last 24 hr 09/10/22 09/10/22 09/11/22 15:38 20:41 07:22 POC Glucose 188 H 212 H 222 H 09/11/22 11:07 POC Glucose 216 H Microbiology Microbiology Results: Microbiology 09/08/22 13:15 Blood - Venous Blood Culture - Preliminary No growth after 48 hours. 09/08/22 12:44 Blood - Venous Blood Culture - Preliminary No growth after 48 hours. Procedures Date of Service Date of Service: 09/11/22 Assessment & Plan Assessment and plan (1) Acute kidney injury superimposed on CKD: Status: Resolved (2) CKD (chronic kidney disease) stage 3, GFR 30-59 ml/min: Status: Inactive (3) Hypertension: Status: Resolved Plan Suggest Optimize BP Amlodipine 5 mg QD Keep O > I with current Bumex 1 mg QD and titrate 2 gm Na diet Recheck labs BP better controlled with current regimen Cr unchanged ; Serology un remarkable thus far AVOID hypotension Time Spent With Patient Time: Total time managing care of this patient today ____ minutes. Progress Note: Quality Stroke Does the patient have a stroke diagnosis?: No
[2022-09-11 15:46] LABS: Glucose, Whole Blood 226 mg/dL (60-115)
[2022-09-11 19:54] LABS: Glucose, Whole Blood 282 mg/dL (60-115)
[2022-09-11] MEDS: Melatonin 3 MG TABLET PO (21:42)
[2022-09-11] MEDS: TiZANidine HCL 4 MG TABLET PO (21:42)
[2022-09-11] MEDS: Insulin Glargine,Hum.rec.anlog 100 UNIT/ML 10 ML VIAL 30 UNIT SUBCUT (21:43)
[2022-09-12] VITALS (7 sets, daily range): BP systolic 134–142; BP diastolic 53–64; PULSE 74–102; RESP 15–19; TEMP 36.6–37.7; O2SAT 92–95
[2022-09-12] MEDS: HYDROmorphone HCl 0.5 MG/0.5 ML SYRINGE IVPUSH ×5 (03:08→22:51)
[2022-09-12] MEDS: Heparin Sodium,Porcine 5,000 UNIT/ML VIAL 5000 UNIT SUBCUT ×2 (03:08→17:57)
[2022-09-12] MEDS: oxyCODONE HCl Immed Release 5 MG TABLET PO (03:51)
[2022-09-12 07:47] LABS: Glucose, Whole Blood 185 mg/dL (60-115)
[2022-09-12] MEDS: Insulin Lispro 100 UNIT/ML 3 ML VIAL SUBCUT ×4 (08:21→22:36)
[2022-09-12] MEDS: 0.9 % Sodium Chloride Flush 3 ML SYRINGE IVFLUSH ×3 (08:29→22:36)
--- NOTE | 2022-09-12 10:09 | PC.NURSE ---
pt a&o x4, refused morning medications - complains of nausea. this nurse offered zofran - which pt declined. please no. i just want to be left alone . PA notified.
[2022-09-12 11:06] LABS: Glucose, Whole Blood 179 mg/dL (60-115)
--- NOTE | 2022-09-12 11:49 | MHC.CLN ---
F/U PT C/O NAUSEA THIS MORNING AND REFUSED MEDS DIET RX: 2000DM-APPROPRIATE PT RECEIVING ENSURE MAX BID TO PROMOTE WOUND HEALING SUPP TO PROVIDE 300KCALS, 60G PROTEIN MONITOR PO INTAKE AND SUPPLEMENT ACCEPTANCE
[2022-09-12] MEDS: predniSONE 20 MG TABLET 60 MG PO (14:40)
[2022-09-12] MEDS: hydrALAZINE HCl 25 MG TABLET PO ×2 (14:40→22:35)
[2022-09-12] MEDS: Gabapentin 400 MG CAPSULE PO ×2 (14:40→22:35)
[2022-09-12] MEDS: Omeprazole 20 MG CAPSULE.DR PO (14:40)
--- NOTE | 2022-09-12 15:25 | PM.PNNEP ---
Subjective Subjective Date of Service: 09/12/22 Interval history: Malaise, requires Adelaida lift to get out of bed Complains of hurting all over Poor insight Tearful Physical Exam Vital Signs: Vital Signs: Last Vital Signs Temp 97.9 F 09/12/22 08:00 Pulse 79 09/12/22 08:00 Resp 19 09/12/22 08:00 BP 134/53 L 09/12/22 08:00 Pulse Ox 95 09/12/22 08:00 O2 Del Method 09/12/22 08:00 O2 Flow Rate 2 09/12/22 08:00 BMI result Body Mass Index 54.8 Const: Other: Obese unhealthy appearing woman, tearful HEENT: Other: runny nose PERRLA Neck: Other: No adenopathy or JVD one xam No palpable thyromegaly Chest: Other: Right basilar rales Cor: RRR, no S3 or murmur GI: Other: Obese with normal bowel sounds Extrem: Other: 2 plus edema Objective Data Labs 09/08/22 12:44 09/10/22 06:47 Labs: Laboratory Results - last 24 hr 09/11/22 09/11/22 09/12/22 15:24 19:49 07:44 POC Glucose 226 H 282 H 185 H 09/12/22 10:57 POC Glucose 179 H Microbiology Microbiology Results: Microbiology 09/08/22 13:15 Blood - Venous Blood Culture - Preliminary No growth after 48 hours. 09/08/22 12:44 Blood - Venous Blood Culture - Preliminary No growth after 48 hours. Procedures Date of Service Date of Service: 09/12/22 Assessment & Plan Assessment and plan (1) Acute kidney injury superimposed on CKD: Status: Acute Assessment and Plan: REsolved, now at baseline creat (2) Hypertension: Status: Acute Assessment and Plan: Well controlled but patient has compelling indication for RAAS blockade with type II DM and CKD (3) CKD (chronic kidney disease) stage 3, GFR 30-59 ml/min: Status: Acute Assessment and Plan: No signif proteinuria but likely a component of DKD plus nephrosclerosis (4) Uncontrolled type 2 diabetes mellitus with hyperglycemia: Status: Acute Plan Recommend introducing low dose ARB, losartan and monitoring potassium closely Goal SBP is 120-130/80 Time Spent With Patient Time: Total time managing care of this patient today ____ minutes. Progress Note: Quality Stroke Does the patient have a stroke diagnosis?: No
--- NOTE | 2022-09-12 15:45 | MHC.CM.PN ---
per rounds pt not ready for dc over the weekend referrals made for str per pt recommendation
--- NOTE | 2022-09-12 17:01 | P.PNIM_ITS ---
Subjective Subjective Date of Service: 09/12/22 Interval History: seen and examined this morning follow up for for back pain still reporting pain, states pain in both legs, both feet and all toes reporting she doesn't want to live like this wants to kill herself after working with physical therapy Review of Systems Review of Systems: Yes all other systems are reviewed and are negative Constitutional Constitutional: Denies chills and Denies fever(s) Cardiovascular Cardiovascular: Denies chest pain and Denies dyspnea Respiratory Respiratory: Denies cough and Denies dyspnea Physical Exam Vital Signs: Vital Signs: Last Vital Signs Temp 97.9 F 09/12/22 08:00 Pulse 79 09/12/22 15:37 Resp 19 09/12/22 08:00 BP 134/53 L 09/12/22 15:37 Pulse Ox 95 09/12/22 15:37 O2 Del Method 09/12/22 08:00 O2 Flow Rate 2 09/12/22 08:00 BMI result Body Mass Index 54.8 Const: General: comfortable, no acute distress, alert and awake Nutritional Appearance: obese Resp: Effort & Inspection: normal respiratory effort and able to speak in complete sentences Cardio: Rate: regular rate Heart sounds: S1 normal heart sound present and S2 normal heart sound present GI: Inspection: No distended and Yes obesity Palpation (GI): Soft to palpation Extrem: Other: b/l lower extremities wrapped in TANMAY wraps, 1+ edema exam difficult, patient able to wiggle toes, bend both knees and lift both legs against gravity. patient states that all this causes pain in all 10 toes, left hip, and back; reporting pain on the bottom of her feet Objective Data Active Medications Albuterol Sulfate (Albuterol Sulfate 90 Mcg 8 Gm Inhaler) 2 puff INHALE Q4H PRN PRN Reason: Dyspnea Amlodipine Besylate (Amlodipine Besylate 5 Mg Tablet) 5 mg PO DAILY [facility]; Protocol Last Admin: 09/12/22 10:11 Dose: Not Given Documented By: LOLIS Non-Admin Reason: Patient Refused Aspirin (Aspirin Enteric Coated 81 Mg Tablet.) 81 mg PO DAILY [facility] Last Admin: 09/12/22 10:11 Dose: Not Given Documented By: LOLIS Non-Admin Reason: Patient Refused Atorvastatin Calcium (Atorvastatin Calcium 10 Mg Tablet) 10 mg PO DAILY [facility] Last Admin: 09/12/22 10:11 Dose: Not Given Documented By: LOLIS Non-Admin Reason: Patient Refused Benzonatate (Benzonatate 100 Mg Capsule) 100 mg PO TID PRN PRN Reason: Cough Bumetanide (Bumetanide 1 Mg Tablet) 1 mg PO DAILY [facility]; Protocol Last Admin: 09/12/22 10:11 Dose: Not Given Documented By: LOLIS Non-Admin Reason: Patient Refused Dexamethasone (Dexamethasone 4 Mg Tablet) 4 mg PO TID [facility] Dextrose (Dextrose 50 % 25 Gm/50 Ml Syringe) 25 gm IVPUSH Q15M PRN; Protocol PRN Reason: per Hypoglycemia Standing Ord. Docusate Sodium (Docusate Sodium 100 Mg Capsule) 100 mg PO DAILY PRN PRN Reason: Constipation Last Admin: 09/11/22 05:37 Dose: 100 mg Documented By: TANVIR Fluoxetine HCl (Fluoxetine Hcl 20 Mg Capsule) 40 mg PO DAILY [facility] Last Admin: 09/12/22 10:11 Dose: Not Given Documented By: LOLIS Non-Admin Reason: Patient Refused Fluticasone Propionate (Fluticasone Propionate 100 Mcg Blst.W.Dev) 2 puff INHALE RBID [facility] Last Admin: 09/12/22 08:09 Dose: Not Given Documented By: TIFFANIE Non-Admin Reason: Patient Refused Gabapentin (Gabapentin 400 Mg Capsule) 400 mg PO TID [facility] Last Admin: 09/12/22 14:40 Dose: 400 mg Documented By: LOLIS Glucose (Glucose Gel 15 Gm Gel..Gram.) 15 gm PO Q15M PRN; Protocol PRN Reason: per Hypoglycemia Standing Ord. Heparin Sodium (Porcine) (Heparin Sodium,Porcine 5,000 Unit/Ml Vial) 5,000 unit SUBCUT Q8H [facility] Last Admin: 09/12/22 10:14 Dose: Not Given Documented By: LOLIS Non-Admin Reason: Patient Refused Hydralazine HCl (Hydralazine Hcl 25 Mg Tablet) 25 mg PO TID [facility]; Protocol Last Admin: 09/12/22 14:40 Dose: 25 mg Documented By: LOLIS Hydromorphone HCl (Hydromorphone Hcl 0.5 Mg/0.5 Ml Syringe) 0.5 mg IVPUSH Q4H PRN; Protocol PRN Reason: Pain, Severe (Pain Scale 7-10) Last Admin: 09/12/22 15:59 Dose: 0.5 mg Documented By: LOLIS Insulin Glargine (Insulin Glargine,Hum.Rec.Anlog 100 Unit/Ml 10 Ml Vial) 30 unit SUBCUT BEDTIME [facility] Last Admin: 09/11/22 21:43 Dose: 30 unit Documented By: TANVIR Insulin Human Lispro (Insulin Lispro 100 Unit/Ml 3 Ml Vial) 0 unit SUBCUT QIDACHS [facility]; Protocol Last Admin: 09/12/22 11:30 Dose: 2 unit Documented By: LOLIS Melatonin (Melatonin 3 Mg Tablet) 3 mg PO BEDTIME PRN PRN Reason: Insomnia Last Admin: 09/11/22 21:42 Dose: 3 mg Documented By: TANVIR Metoprolol Succinate (Metoprolol Succinate Er 50 Mg Tab.Er.24h) 50 mg PO DAILY [facility]; Protocol Last Admin: 09/12/22 10:12 Dose: Not Given Documented By: LOLIS Non-Admin Reason: Patient Refused Nystatin (Nystatin Powder 15 Gm Bottle) 1 appl TOPICAL BID [facility]; Protocol Last Admin: 09/12/22 10:13 Dose: Not Given Documented By: LOLIS Non-Admin Reason: Patient Refused Omeprazole (Omeprazole 20 Mg Geovanna.) 20 mg PO DAILY@0630 [facility] Last Admin: 09/12/22 14:40 Dose: 20 mg Documented By: LOLIS Ondansetron HCl (Ondansetron Hcl 4 Mg/2 Ml Vial) 4 mg IVPUSH Q8H PRN PRN Reason: Nausea and Vomiting Oxycodone HCl (Oxycodone Hcl Immed Release 5 Mg Tablet) 5 mg PO Q6H PRN PRN Reason: Pain, Moderate (Pain Scale 4-6 Last Admin: 09/12/22 03:51 Dose: 5 mg Documented By: TANVIR Prednisone (Prednisone 20 Mg Tablet) 60 mg PO DAILY [facility] Last Admin: 09/12/22 14:40 Dose: 60 mg Documented By: LOLIS Risperidone (Risperidone 1 Mg Tablet) 1 mg PO BID [facility] Last Admin: 09/12/22 10:13 Dose: Not Given Documented By: LOLIS Non-Admin Reason: Patient Refused Sodium Chloride (0.9 % Sodium Chloride Flush 3 Ml Syringe) 3 ml IVFLUSH QSHIFT [facility] Last Admin: 09/12/22 16:02 Dose: 3 ml Documented By: LOLIS Tizanidine HCl (Tizanidine Hcl 4 Mg Tablet) 4 mg PO BEDTIME [facility] Last Admin: 09/11/22 21:42 Dose: 4 mg Documented By: TANVIR Vitamin D (Cholecalciferol (Vitamin D3) 25 Mcg Tablet) 25 mcg PO DAILY [facility] Last Admin: 09/12/22 10:11 Dose: Not Given Documented By: LOLIS Non-Admin Reason: Patient Refused Labs 09/08/22 12:44 09/10/22 06:47 Labs: Laboratory Results - last 24 hr 09/11/22 09/12/22 09/12/22 19:49 07:44 10:57 POC Glucose 282 H 185 H 179 H Assessment and Plan (1) Back pain: Status: Acute Plan 62-year-old female here with left hip pain and bilateral lower extremity swelling Intractable left hip pain due to left lumbar radiculopathy Persistent pain Outpatient MRI lumbar spine ordered by PCP on September 04 showed L5-S1 large left lateral disc protrusion with severe left-sided foraminal stenosis and compression of left 5th nerve root, early osteomyelitis diskitis could appear similar, L4-L5 moderate central canal stenosis, and left foraminal stenosis cau sing left L4 nerve compression. 08/25/22 CT abdomen and pelvis without contrast showed multilevel spondylosis lower thoracic and lumbar spine ESR 86 case discussed with ID, NM scan for osteomyelitis/discitis negative, no history of IV drug use, no trauma, no fever, nl WBC count. continue IV Dilaudid and oxycodone, pt. allergic to Tylenol and ibuprofen; will start steroids Acute on chronic kidney disease stage III Creatinine returned to baseline,avoid nephrotoxins,all medication renally dosed, resume diuretics gradually Nephrology following Bilateral lower extremity swelling due to chronic stasis Likely due to Norvasc/hydralazine , prolong sitting, normal LFTs, no evidence of acute congestive heart failure, negative venous Doppler study for DVT No evidence of acute congestive heart failure exacerbation Norvasc dose decreased to 5 mg, apply Tanmay wrap recommend to keep leg elevated , continue diuretics Bumex 1 mg, at home was on Bumex 2 mg at a.m. and 1 mg at p.m. likely noncompliant Chronic CHF with reduced EF no acute exacerbation with normal BNP and chest x- ray, continue metoprolol and Bumex (on decreased dose of bumex as above) aldactone on hold isosorbide on hold Diabetes mellitus diabetic diet, insulin sliding scale and on Lantus 30 units at bedtime (home dose 50 units b.i.d.) follow blood sugar q.i.d. COPD no acute exacerbation continue a DuoNeb updraft, oxygen 94% on room air Obstructive sleep apnea, not using CPAP due to claustrophobia Morbid obesity BMI 54.9 due to excess calories recommended low-calorie , weight loss Mood disorder resume all home medications reporting SI, can't live with pain psych leonardo jakcson Stage II coccyx pressure - seen by wound care, present on admission. pt has chronic moisture dermatitis and less likely r/t pressure. recommend frequent position change, weight loss, barrier cream DVT prophylaxis - heparin Code status full code attending - dr. lee patient will need continued inpatient stay due to intractable left hip pain with difficulty in ambulation requiring IV analgesics. PT rec STR but pt currently refusing Time Spent With Patient Time: Total time managing care of this patient today ____ minutes. Quality Stroke Does the patient have a stroke diagnosis?: No VTE Prior VTE?: No VTE Risk Level:: Medical - moderate - high VTE Device Contraindication: Treatment Not Indicated VTE Drug Contraindication: N/A - Med Ordered
--- NOTE | 2022-09-12 17:13 | PC.NURSE ---
PT came to this nurse after working with pt around 15:30. PT stated pt was upset and stated 'I want to kill myself . pt was tearful throughout PT. provider notified and came to bedside and spoke with pt. psych consult ordered, 1:1 sitter in room with pt.
[2022-09-12 17:33] LABS: Glucose, Whole Blood 256 mg/dL (60-115)
[2022-09-12 22:01] LABS: Glucose, Whole Blood 337 mg/dL (60-115)
[2022-09-12] MEDS: TiZANidine HCL 4 MG TABLET PO (22:34)
[2022-09-12] MEDS: dexAMETHasone 4 MG TABLET PO (22:34)
[2022-09-12] MEDS: Melatonin 3 MG TABLET PO (22:34)
[2022-09-12] MEDS: risperiDONE 1 MG TABLET PO (22:34)
[2022-09-12] MEDS: Insulin Glargine,Hum.rec.anlog 100 UNIT/ML 10 ML VIAL 30 UNIT SUBCUT (22:35)
[2022-09-13 03:19] VITALS: BP 138/81; PULSE 83; RESP 20; TEMP 36.3; O2SAT 96
[2022-09-13] MEDS: Omeprazole 20 MG CAPSULE.DR PO (05:39)
[2022-09-13 08:00] VITALS: BP 146/64; PULSE 80; RESP 16; TEMP 36.2; O2SAT 97
[2022-09-13 08:18] LABS: Anion Gap 16 (12-20); Blood Urea Nitrogen 89 mg/dL (9-16); Calcium 8.5 mg/dL (8.4-10.2); Carbon Dioxide 30 mmol/L (22-29); Chloride 99 mmol/L (96-108); Creatinine Clr Calc Pharmacy 47.2; Estimated Glomerular Filt Rate 31; Glucose Random 307 mg/dL (60-115); Potassium 5.2 mmol/L (3.3-5.1); Sodium 140 mmol/L (135-145)
[2022-09-13 08:26] LABS: Glucose, Whole Blood 256 mg/dL (60-115)
[2022-09-13] MEDS: Insulin Lispro 100 UNIT/ML 3 ML VIAL SUBCUT ×3 (08:32→19:42)
[2022-09-13] MEDS: FLUoxetine HCl 20 MG CAPSULE 40 MG PO (08:32)
[2022-09-13] MEDS: amLODIPine Besylate 5 MG TABLET PO (08:32)
[2022-09-13] MEDS: Gabapentin 400 MG CAPSULE PO ×3 (08:32→19:27)
[2022-09-13] MEDS: Aspirin Enteric Coated 81 MG TABLET.DR PO (08:32)
[2022-09-13] MEDS: Metoprolol Succinate ER 50 MG TAB.ER.24H PO (08:32)
[2022-09-13] MEDS: 0.9 % Sodium Chloride Flush 3 ML SYRINGE IVFLUSH ×2 (08:32→19:28)
[2022-09-13] MEDS: dexAMETHasone 4 MG TABLET PO ×3 (08:33→19:28)
[2022-09-13] MEDS: Bumetanide 1 MG TABLET PO (08:33)
[2022-09-13] MEDS: hydrALAZINE HCl 25 MG TABLET PO ×3 (08:33→19:27)
[2022-09-13] MEDS: risperiDONE 1 MG TABLET PO ×2 (08:33→19:27)
[2022-09-13] MEDS: Cholecalciferol (Vitamin D3) 25 MCG TABLET PO (08:33)
[2022-09-13] MEDS: Atorvastatin Calcium 10 MG TABLET PO (08:33)
--- NOTE | 2022-09-13 10:22 | HO.PM.IMPN ---
Subjective Subjective Date of Service: 09/13/22 Interval History: seen and examined this morning follow up for back pain continues to be emotionally labile, frequently crying, declining meds she is not agreeable to go to rehab at this time Review of Systems Review of Systems: Yes all other systems are reviewed and are negative Constitutional Constitutional: Denies chills and Denies fever(s) Cardiovascular Cardiovascular: Denies chest pain, Denies palpitations and Denies dyspnea Respiratory Respiratory: Denies dyspnea Endocrine Endocrine: Denies palpitations Physical Exam Vital Signs: Vital Signs: Last Vital Signs Temp 97.1 F 09/13/22 08:00 Pulse 80 09/13/22 08:00 Resp 16 09/13/22 08:00 BP 146/64 H 09/13/22 08:00 Pulse Ox 97 09/13/22 08:00 O2 Del Method 09/13/22 08:00 O2 Flow Rate 3 09/13/22 08:00 BMI result Body Mass Index 54.8 Const: Other: crying and kicking legs General: alert and awake Nutritional Appearance: obese Resp: Effort & Inspection: normal respiratory effort and able to speak in complete sentences Cardio: Rate: regular rate Heart sounds: S1 normal heart sound present and S2 normal heart sound present GI: Inspection: No distended and Yes obesity Palpation (GI): Soft to palpation Neuro: General: CN's II-XI intact bilaterally Extrem: Other: b/l lower extremities wrapped in TANMAY wraps, 1+ edema exam difficult, patient able to wiggle toes, bend both knees and lift both legs against gravity. patient states that all this causes pain in all 10 toes, left hip, and back; reporting pain on the bottom of her feet, stating she is unable to walk Objective Data Active Medications Albuterol Sulfate (Albuterol Sulfate 90 Mcg 8 Gm Inhaler) 2 puff INHALE Q4H PRN PRN Reason: Dyspnea Amlodipine Besylate (Amlodipine Besylate 5 Mg Tablet) 5 mg PO DAILY [facility]; Protocol Last Admin: 09/13/22 08:32 Dose: 5 mg Documented By: RADHA Aspirin (Aspirin Enteric Coated 81 Mg Tablet.) 81 mg PO DAILY [facility] Last Admin: 09/13/22 08:32 Dose: 81 mg Documented By: RADHA Atorvastatin Calcium (Atorvastatin Calcium 10 Mg Tablet) 10 mg PO DAILY [facility] Last Admin: 09/13/22 08:33 Dose: 10 mg Documented By: RADHA Benzonatate (Benzonatate 100 Mg Capsule) 100 mg PO TID PRN PRN Reason: Cough Bumetanide (Bumetanide 1 Mg Tablet) 1 mg PO DAILY [facility]; Protocol Last Admin: 09/13/22 08:33 Dose: 1 mg Documented By: RADHA Dexamethasone (Dexamethasone 4 Mg Tablet) 4 mg PO TID [facility] Last Admin: 09/13/22 08:33 Dose: 4 mg Documented By: RADHA Dextrose (Dextrose 50 % 25 Gm/50 Ml Syringe) 25 gm IVPUSH Q15M PRN; Protocol PRN Reason: per Hypoglycemia Standing Ord. Docusate Sodium (Docusate Sodium 100 Mg Capsule) 100 mg PO DAILY PRN PRN Reason: Constipation Last Admin: 09/11/22 05:37 Dose: 100 mg Documented By: TANVIR Fluoxetine HCl (Fluoxetine Hcl 20 Mg Capsule) 40 mg PO DAILY [facility] Last Admin: 09/13/22 08:32 Dose: 40 mg Documented By: RADHA Fluticasone Propionate (Fluticasone Propionate 100 Mcg Blst.W.Dev) 2 puff INHALE RBID [facility] Last Admin: 09/13/22 07:48 Dose: Not Given Documented By: ZENA Non-Admin Reason: Med Not Available Gabapentin (Gabapentin 400 Mg Capsule) 400 mg PO TID [facility] Last Admin: 09/13/22 08:32 Dose: 400 mg Documented By: RADHA Glucose (Glucose Gel 15 Gm Gel..Gram.) 15 gm PO Q15M PRN; Protocol PRN Reason: per Hypoglycemia Standing Ord. Heparin Sodium (Porcine) (Heparin Sodium,Porcine 5,000 Unit/Ml Vial) 5,000 unit SUBCUT Q8H [facility] Last Admin: 09/13/22 02:03 Dose: Not Given Documented By: CASTILM Non-Admin Reason: Patient Refused Hydralazine HCl (Hydralazine Hcl 25 Mg Tablet) 25 mg PO TID [facility]; Protocol Last Admin: 09/13/22 08:33 Dose: 25 mg Documented By: RADHA Hydromorphone HCl (Hydromorphone Hcl 0.5 Mg/0.5 Ml Syringe) 0.5 mg IVPUSH Q4H PRN; Protocol PRN Reason: Pain, Severe (Pain Scale 7-10) Last Admin: 09/12/22 22:51 Dose: 0.5 mg Documented By: JESSICA Insulin Glargine (Insulin Glargine,Hum.Rec.Anlog 100 Unit/Ml 10 Ml Vial) 30 unit SUBCUT BEDTIME [facility] Last Admin: 09/12/22 22:35 Dose: 30 unit Documented By: JESSICA Insulin Human Lispro (Insulin Lispro 100 Unit/Ml 3 Ml Vial) 0 unit SUBCUT QIDACHS [facility]; Protocol Last Admin: 09/13/22 08:32 Dose: 6 unit Documented By: RADHA Melatonin (Melatonin 3 Mg Tablet) 3 mg PO BEDTIME PRN PRN Reason: Insomnia Last Admin: 09/12/22 22:34 Dose: 3 mg Documented By: JESSICA Metoprolol Succinate (Metoprolol Succinate Er 50 Mg Tab.Er.24h) 50 mg PO DAILY [facility]; Protocol Last Admin: 09/13/22 08:32 Dose: 50 mg Documented By: RADHA Nystatin (Nystatin Powder 15 Gm Bottle) 1 appl TOPICAL BID [facility]; Protocol Last Admin: 09/13/22 08:39 Dose: Not Given Documented By: RADHA Non-Admin Reason: Patient Refused Omeprazole (Omeprazole 20 Mg Geovanna.) 20 mg PO DAILY@0630 [facility] Last Admin: 09/13/22 05:39 Dose: 20 mg Documented By: JESSICA Ondansetron HCl (Ondansetron Hcl 4 Mg/2 Ml Vial) 4 mg IVPUSH Q8H PRN PRN Reason: Nausea and Vomiting Oxycodone HCl (Oxycodone Hcl Immed Release 5 Mg Tablet) 5 mg PO Q6H PRN PRN Reason: Pain, Moderate (Pain Scale 4-6 Last Admin: 09/12/22 03:51 Dose: 5 mg Documented By: TANVIR Risperidone (Risperidone 1 Mg Tablet) 1 mg PO BID [facility] Last Admin: 09/13/22 08:33 Dose: 1 mg Documented By: RADHA Sodium Chloride (0.9 % Sodium Chloride Flush 3 Ml Syringe) 3 ml IVFLUSH QSHIFT [facility] Last Admin: 09/13/22 08:32 Dose: 3 ml Documented By: RADHA Tizanidine HCl (Tizanidine Hcl 4 Mg Tablet) 4 mg PO BEDTIME [facility] Last Admin: 09/12/22 22:34 Dose: 4 mg Documented By: JESSICA Vitamin D (Cholecalciferol (Vitamin D3) 25 Mcg Tablet) 25 mcg PO DAILY [facility] Last Admin: 09/13/22 08:33 Dose: 25 mcg Documented By: RADHA Labs 09/08/22 12:44 09/13/22 07:34 Labs: Laboratory Results - last 24 hr 09/12/22 09/12/22 09/12/22 10:57 17:28 21:51 Anion Gap Estim Creat Clear Calc Estimated GFR POC Glucose 179 H 256 H 337 H Random Glucose Calcium 09/13/22 09/13/22 07:34 08:23 Anion Gap 16 Estim Creat Clear Calc 47.2 Estimated GFR 31 POC Glucose 256 H Random Glucose 307 H Calcium 8.5 Assessment and Plan (1) Depression: Status: Acute (2) Back pain: Status: Acute Plan 62-year-old female here with left hip pain and bilateral lower extremity swelling Intractable left hip pain due to left lumbar radiculopathy Persistent pain Outpatient MRI lumbar spine ordered by PCP on September 04 showed L5-S1 large left lateral disc protrusion with severe left-sided foraminal stenosis and compression of left 5th nerve root, early osteomyelitis diskitis could appear similar, L4-L5 moderate central canal stenosis, and left foraminal stenosis causing left L4 nerve compression. 08/25/22 CT abdomen and pelvis without contrast showed multilevel spondylosis lower thoracic and lumbar spine ESR 86 case discussed with ID, NM scan for osteomyelitis/discitis negative, no fever, nl WBC count. continue IV Dilaudid and oxycodone, pt. allergic to Tylenol and ibuprofen; will start steroids Acute on chronic kidney disease stage III Creatinine returned to baseline, avoid nephrotoxins, all medication renally dosed, resume diuretics gradually Nephrology following Bilateral lower extremity swelling due to chronic stasis Likely due to Norvasc/hydralazine , prolong sitting, normal LFTs, no evidence of acute congestive heart failure, negative venous Doppler study for DVT No evidence of acute congestive heart failure exacerbation Norvasc dose decreased to 5 mg, apply Tanmay wrap recommend to keep leg elevated , continue diuretics Bumex 1 mg, at home was on Bumex 2 mg at a.m. and 1 mg at p.m. likely noncompliant Chronic CHF with reduced EF no acute exacerbation with normal BNP and chest x-ray, continue metoprolol and Bumex (on decreased dose of bumex as above) aldactone on hold isosorbide on hold Diabetes mellitus diabetic diet, insulin sliding scale and on Lantus 30 units at bedtime (home dose 50 units b.i.d.) follow blood sugar q.i.d. COPD no acute exacerbation continue a DuoNeb updraft, oxygen 94% on room air Obstructive sleep apnea not compliant with CPAP due to claustrophobia Morbid obesity BMI 54.9 due to excess calories recommended low-calorie diet, weight loss Mood disorder resume all home medications reporting SI, can't live with pain psych eval, sitter for safety Stage II coccyx pressure - seen by wound care, present on admission. pt has chronic moisture dermatitis and less likely r/t pressure. recommend frequent position change, weight loss, barrier cream DVT prophylaxis - heparin Code status full code attending - Dr. Rogers patient will need continued inpatient stay due to intractable left hip pain with difficulty in ambulation requiring IV analgesics, psych evaluation, safe disposition dispo: PT rec STR but pt currently refusing Time Spent With Patient Time: Total time managing care of this patient today ____ minutes. Quality Stroke Does the patient have a stroke diagnosis?: No VTE Prior VTE?: No VTE Risk Level:: Medical - moderate - high VTE Device Contraindication: Treatment Not Indicated VTE Drug Contraindication: N/A - Med Ordered
[2022-09-13 11:31] LABS: Glucose, Whole Blood 248 mg/dL (60-115)
[2022-09-13] MEDS: HYDROmorphone HCl 0.5 MG/0.5 ML SYRINGE IVPUSH ×2 (11:59→19:26)
--- NOTE | 2022-09-13 12:01 | P.PNNP_ITS ---
Subjective Subjective Date of Service: 09/13/22 Interval history: seen and examined this morning follow up for CKD continues to be emotionally labile, frequently crying, declining meds crying in bed Physical Exam Vital Signs: Vital Signs: Last Vital Signs Temp 97.1 F 09/13/22 08:00 Pulse 80 09/13/22 08:00 Resp 16 09/13/22 08:00 BP 146/64 H 09/13/22 08:00 Pulse Ox 97 09/13/22 08:00 O2 Del Method 09/13/22 08:00 O2 Flow Rate 3 09/13/22 08:00 BMI result Body Mass Index 54.8 Const: Other: Obese woman, crying in bed unable to engage in reasonable interaction Neck: Neck: Yes normal visual inspection and Yes no lymphadenopathy Chest: Other: No rales Cardio: Jugular venous distension: no JVD Palpation: normal PMI Rate: re gular rate Rhythm: regular rhythm GI: Other: Protuberant, obese abdomen with normal bowel sounds Extrem: Other: wrapped edema 2 plus pretib Objective Data Labs 09/08/22 12:44 09/13/22 07:34 Labs: Laboratory Results - last 24 hr 09/12/22 09/12/22 09/13/22 17:28 21:51 07:34 Sodium 140 Potassium 5.2 H Chloride 99 Carbon Dioxide 30 H Anion Gap 16 BUN 89 H Creatinine 1.67 H Estim Creat Clear Calc 47.2 Estimated GFR 31 POC Glucose 256 H 337 H Random Glucose 307 H Calcium 8.5 09/13/22 09/13/22 08:23 11:19 Sodium Potassium Chloride Carbon Dioxide Anion Gap BUN Creatinine Estim Creat Clear Calc Estimated GFR POC Glucose 256 H 248 H Random Glucose Calcium Microbiology Microbiology Results: Microbiology 09/08/22 13:15 Blood - Venous Blood Culture - Preliminary No growth after 48 hours. 09/08/22 12:44 Blood - Venous Blood Culture - Preliminary No growth after 48 hours. Procedures Date of Service Date of Service: 09/13/22 Assessment & Plan Assessment and plan (1) CKD (chronic kidney disease) stage 3, GFR 30-59 ml/min: Status: Acute Assessment and Plan: This may be her new baseline creatinine (2) Hypertension: Status: Acute Assessment and Plan: Not at target yet (3) COPD (chronic obstructive pulmonary disease): Status: Acute (4) Hyperkalemia: Status: Acute Assessment and Plan: Needs low K diet Plan Low K , low sodium diet Need to add losartan or valsartan but wait until K is better controlled Time Spent With Patient Time: Total time managing care of this patient today ____ minutes. Progress Note: Quality Stroke Does the patient have a stroke diagnosis?: No
[2022-09-13 12:13] LABS: Potassium 5.4 mmol/L (3.3-5.1)
[2022-09-13 14:08] VITALS: BP 137/61; O2SAT 96
[2022-09-13] MEDS: cloNIDine HCL 0.1 MG TABLET PO (14:16)
[2022-09-13] MEDS: Sodium Zirconium Cyclosilicate 5 GM POWD.PACK PO (14:16)
[2022-09-13 15:06] VITALS: BP 152/67; PULSE 78; RESP 18; TEMP 36.8; O2SAT 94
[2022-09-13 19:22] VITALS: BP 121/57; PULSE 88; RESP 20; TEMP 36.6; O2SAT 95
[2022-09-13] MEDS: TiZANidine HCL 4 MG TABLET PO (19:28)
[2022-09-13] MEDS: Melatonin 3 MG TABLET PO (19:28)
[2022-09-13] MEDS: Insulin Glargine,Hum.rec.anlog 100 UNIT/ML 10 ML VIAL 30 UNIT SUBCUT (19:42)
[2022-09-13 20:24] LABS: Glucose, Whole Blood 344 mg/dL (60-115)
[2022-09-14] MEDS: Heparin Sodium,Porcine 5,000 UNIT/ML VIAL 5000 UNIT SUBCUT ×2 (01:23→09:58)
[2022-09-14] MEDS: HYDROmorphone HCl 0.5 MG/0.5 ML SYRINGE IVPUSH ×4 (01:27→23:31)
[2022-09-14 04:00] VITALS: BP 124/72; PULSE 75; RESP 18; TEMP 36.5; O2SAT 96
[2022-09-14] MEDS: Omeprazole 20 MG CAPSULE.DR PO (05:35)
[2022-09-14 06:57] LABS: Anion Gap 20 (12-20); Blood Urea Nitrogen 100 mg/dL (9-16); Calcium 8.8 mg/dL (8.4-10.2); Carbon Dioxide 27 mmol/L (22-29); Chloride 97 mmol/L (96-108); Creatinine Clr Calc Pharmacy 50.2; Estimated Glomerular Filt Rate 33; Glucose Random 445 mg/dL (60-115); Potassium 5.6 mmol/L (3.3-5.1); Sodium 138 mmol/L (135-145)
[2022-09-14 07:34] VITALS: BP 123/60; PULSE 67; RESP 18; TEMP 36.4; O2SAT 96
[2022-09-14 07:52] LABS: Glucose, Whole Blood 429 mg/dL (60-115)
[2022-09-14] MEDS: Atorvastatin Calcium 10 MG TABLET PO (08:20)
[2022-09-14] MEDS: Aspirin Enteric Coated 81 MG TABLET.DR PO (08:20)
[2022-09-14] MEDS: Metoprolol Succinate ER 50 MG TAB.ER.24H PO (08:20)
[2022-09-14] MEDS: Cholecalciferol (Vitamin D3) 25 MCG TABLET PO (08:20)
[2022-09-14] MEDS: hydrALAZINE HCl 25 MG TABLET PO ×3 (08:20→20:07)
[2022-09-14] MEDS: amLODIPine Besylate 5 MG TABLET PO (08:21)
[2022-09-14] MEDS: dexAMETHasone 4 MG TABLET PO (08:21)
[2022-09-14] MEDS: 0.9 % Sodium Chloride Flush 3 ML SYRINGE IVFLUSH ×3 (08:21→20:10)
[2022-09-14] MEDS: Bumetanide 1 MG TABLET PO (08:21)
[2022-09-14] MEDS: Gabapentin 400 MG CAPSULE PO ×3 (08:21→20:08)
[2022-09-14] MEDS: FLUoxetine HCl 20 MG CAPSULE 40 MG PO (08:21)
[2022-09-14] MEDS: Sodium Zirconium Cyclosilicate 10 GM POWD.PACK PO (08:21)
[2022-09-14] MEDS: Insulin Lispro 100 UNIT/ML 3 ML VIAL 10 UNIT SUBCUT ×3 (08:21→20:09)
[2022-09-14] MEDS: Insulin Lispro 100 UNIT/ML 3 ML VIAL SUBCUT ×3 (08:22→20:09)
[2022-09-14] MEDS: risperiDONE 1 MG TABLET PO ×3 (09:58→20:08)
[2022-09-14] MEDS: oxyCODONE HCl Immed Release 5 MG TABLET PO (10:59)
[2022-09-14 11:30] LABS: Glucose, Whole Blood 456 mg/dL (60-115)
--- NOTE | 2022-09-14 11:53 | HO.PM.IMPN ---
Subjective Subjective Date of Service: 09/14/22 Interval History: seen and examined this morning follow up for back pain still reporting pain, unwilling to get out of bed, voiding on bedpan still intermittently crying, difficult to discuss medical management Review of Systems Review of Systems: Yes all other systems are reviewed and are negative Constitutional Constitutional: Denies chills and Denies fever(s) Cardiovascular Cardiovascular: Denies chest pain, Denies palpitations and Denies dyspnea Respiratory Respiratory: Denies cough and Denies dyspnea Gastrointestinal Gastrointestinal: Denies abdominal pain, Denies nausea and Denies vomiting Endocrine Endocrine: Denies palpitations Physical Exam Vital Signs: Vital Signs: Last Vital Signs Temp 97.6 F 09/14/22 07:34 Pulse 67 09/14/22 07:34 Resp 18 09/14/22 07:34 BP 123/60 09/14/22 07:34 Pulse Ox 96 09/14/22 07:34 O2 Del Method 09/14/22 07:34 O2 Flow Rate 3 09/14/22 07:34 BMI result Body Mass Index 54.8 Const: Other: crying and kicking legs General: comfortable, no acute distress, alert and awake Nutritional Appearance: obese Resp: Effort & Inspection: normal respiratory effort and able to speak in complete sentences Cardio: Rate: regular rate Heart sounds: S1 normal heart sound present and S2 normal heart sound present GI: Inspection: No distended and Yes obesity Palpation (GI): Soft to palpation Neuro: General: CN's II-XI intact bilaterally Extrem: Other: b/l lower extremities wrapped in TANMAY wraps, 1+ edema exam difficult, patient able to wiggle toes, bend both knees and lift both legs against gravity. patient states that all this causes pain in all 10 toes, left hip, and back; reporting pain on the bottom of her feet, stating she is unable to walk Objective Data Active Medications Albuterol Sulfate (Albuterol Sulfate 90 Mcg 8 Gm Inhaler) 2 puff INHALE Q4H PRN PRN Reason: Dyspnea Amlodipine Besylate (Amlodipine Besylate 5 Mg Tablet) 5 mg PO DAILY [facility]; Protocol Last Admin: 09/14/22 08:21 Dose: 5 mg Documented By: RADHA Aspirin (Aspirin Enteric Coated 81 Mg Tablet.) 81 mg PO DAILY [facility] Last Admin: 09/14/22 08:20 Dose: 81 mg Documented By: RADHA Atorvastatin Calcium (Atorvastatin Calcium 10 Mg Tablet) 10 mg PO DAILY [facility] Last Admin: 09/14/22 08:20 Dose: 10 mg Documented By: RADHA Benzonatate (Benzonatate 100 Mg Capsule) 100 mg PO TID PRN PRN Reason: Cough Bumetanide (Bumetanide 1 Mg Tablet) 1 mg PO DAILY [facility]; Protocol Last Admin: 09/14/22 08:21 Dose: 1 mg Documented By: RADHA Dexamethasone (Dexamethasone 4 Mg Tablet) 4 mg PO BID [facility] Last Admin: 09/14/22 08:21 Dose: 4 mg Documented By: RADHA Dextrose (Dextrose 50 % 25 Gm/50 Ml Syringe) 25 gm IVPUSH Q15M PRN; Protocol PRN Reason: per Hypoglycemia Standing Ord. Docusate Sodium (Docusate Sodium 100 Mg Capsule) 100 mg PO DAILY PRN PRN Reason: Constipation Last Admin: 09/11/22 05:37 Dose: 100 mg Documented By: DESMIQUEL Fluoxetine HCl (Fluoxetine Hcl 20 Mg Capsule) 40 mg PO DAILY [facility] Last Admin: 09/14/22 08:21 Dose: 40 mg Documented By: RADHA Fluticasone Propionate (Fluticasone Propionate 100 Mcg Blst.W.Dev) 2 puff INHALE RBID [facility] Last Admin: 09/14/22 08:10 Dose: Not Given Documented By: ZENA Non-Admin Reason: Med Not Available Gabapentin (Gabapentin 400 Mg Capsule) 400 mg PO TID [facility] Last Admin: 09/14/22 08:21 Dose: 400 mg Documented By: RADHA Glucose (Glucose Gel 15 Gm Gel..Gram.) 15 gm PO Q15M PRN; Protocol PRN Reason: per Hypoglycemia Standing Ord. Heparin Sodium (Porcine) (Heparin Sodium,Porcine 5,000 Unit/Ml Vial) 5,000 unit SUBCUT Q8H [facility] Last Admin: 09/14/22 09:58 Dose: 5,000 unit Documented By: RADHA Hydralazine HCl (Hydralazine Hcl 25 Mg Tablet) 25 mg PO TID [facility]; Protocol Last Admin: 09/14/22 08:20 Dose: 25 mg Documented By: RADHA Hydromorphone HCl (Hydromorphone Hcl 0.5 Mg/0.5 Ml Syringe) 0.5 mg IVPUSH Q4H PRN; Protocol PRN Reason: Pain, Severe (Pain Scale 7-10) Last Admin: 09/14/22 05:39 Dose: 0.5 mg Documented By: JESSICA Insulin Glargine (Insulin Glargine,Hum.Rec.Anlog 100 Unit/Ml 10 Ml Vial) 30 unit SUBCUT BEDTIME [facility] Last Admin: 09/13/22 19:42 Dose: 30 unit Documented By: JESSICA Insulin Human Lispro (Insulin Lispro 100 Unit/Ml 3 Ml Vial) 0 unit SUBCUT QIDACHS [facility]; Protocol Last Admin: 09/14/22 08:22 Dose: 10 unit Documented By: RADHA Melatonin (Melatonin 3 Mg Tablet) 3 mg PO BEDTIME PRN PRN Reason: Insomnia Last Admin: 09/13/22 19:28 Dose: 3 mg Documented By: JESSICA Metoprolol Succinate (Metoprolol Succinate Er 50 Mg Tab.Er.24h) 50 mg PO DAILY [facility]; Protocol Last Admin: 09/14/22 08:20 Dose: 50 mg Documented By: RADHA Nystatin (Nystatin Powder 15 Gm Bottle) 1 appl TOPICAL BID [facility]; Protocol Last Admin: 09/14/22 08:22 Dose: Not Given Documented By: RADHA Non-Admin Reason: Patient Refused Omeprazole (Omeprazole 20 Mg Capsule.) 20 mg PO DAILY@0630 [facility] Last Admin: 09/14/22 05:35 Dose: 20 mg Documented By: JESSICA Ondansetron HCl (Ondansetron Hcl 4 Mg/2 Ml Vial) 4 mg IVPUSH Q8H PRN PRN Reason: Nausea and Vomiting Oxycodone HCl (Oxycodone Hcl Immed Release 5 Mg Tablet) 5 mg PO Q6H PRN PRN Reason: Pain, Moderate (Pain Scale 4-6 Last Admin: 09/14/22 10:59 Dose: 5 mg Documented By: NALLELY Risperidone (Risperidone 1 Mg Tablet) 1 mg PO BID [facility] Last Admin: 09/14/22 09:58 Dose: 1 mg Documented By: RADHA Sodium Chloride (0.9 % Sodium Chloride Flush 3 Ml Syringe) [facility] Last Admin: 09/14/22 08:21 Dose: 3 ml Documented By: RADHA Tizanidine HCl (Tizanidine Hcl 4 Mg Tablet) 4 mg PO BEDTIME [facility] Last Admin: 09/13/22 19:28 Dose: 4 mg Documented By: JESSICA Vitamin D (Cholecalciferol (Vitamin D3) 25 Mcg Tablet) 25 mcg PO DAILY [facility] Last Admin: 09/14/22 08:20 Dose: 25 mcg Documented By: RADHA Labs 09/08/22 12:44 09/14/22 05:16 Labs: Laboratory Results - last 24 hr 09/13/22 09/14/22 09/14/22 19:25 05:16 07:37 Anion Gap 20 Estim Creat Clear Calc 50.2 Estimated GFR 33 POC Glucose 344 H 429 H* Random Glucose 445 H* Calcium 8.8 09/14/22 11:13 Anion Gap Estim Creat Clear Calc Estimated GFR POC Glucose 456 H* Random Glucose Calcium Microbiology Microbiology Results: Microbiology 09/08/22 13:15 Blood Culture - Final Blood - Venous No growth after 5 days. 09/08/22 12:44 Blood Culture - Final Blood - Venous No growth after 5 days. Assessment and Plan (1) Hyperkalemia: Status: Acute (2) Back pain: Status: Acute Plan 62-year-old female here with left hip pain and bilateral lower extremity swelling Intractable left hip pain due to left lumbar radiculopathy Persistent pain Outpatient MRI lumbar spine ordered by PCP on September 04 showed L5-S1 large left lateral disc protrusion with severe left-sided foraminal stenosis and compression of left 5th nerve root, early osteomyelitis diskitis could appear similar, L4-L5 moderate central canal stenosis, and left foraminal stenosis causing left L4 nerve compression. 08/25/22 CT abdomen and pelvis without contrast showed multilevel spondylosis lower thoracic and lumbar spine ESR 86 case discussed with ID, NM scan for osteomyelitis/discitis negative, no fever, nl WBC count. continue IV Dilaudid and oxycodone, pt. allergic to Tylenol and ibuprofen received one dose of prednisone 09/09, decadron started 09/12 doesn't seem to be helping, will start to wean PT rec STR - pt declines at this time Hyperkalemia likely r/t steroids, ckd lokelma repeat BMP in am Acute on chronic kidney disease stage III Creatinine returned to baseline, avoid nephrotoxins, all medication renally dosed, resume diuretics gradually Nephrology following Bilateral lower extremity swelling due to chronic stasis Likely due to Norvasc/hydralazine , prolong sitting, normal LFTs, no evidence of acute congestive heart failure, negative venous Doppler study for DVT No evidence of acute congestive heart failure exacerbation Norvasc dose decreased to 5 mg, apply Tanmay wrap recommend to keep leg elevated , continue diuretics Bumex 1 mg, at home was on Bumex 2 mg at a.m. and 1 mg at p.m. likely noncompliant Chronic CHF with reduced EF no acute exacerbation with normal BNP and chest x-ray, continue metoprolol and Bumex (on decreased dose of bumex as above) aldactone on hold isosorbide on hold Diabetes mellitus with hyperglycemia secondary to steroids diabetic diet, insulin sliding scale will increase Lantus to 40 units at bedtime (home dose 50 units b.i.d.) follow blood sugar q.i.d. COPD no acute exacerbation continue a DuoNeb updraft, oxygen 94% on room air Obstructive sleep apnea not compliant with CPAP due to claustrophobia Morbid obesity BMI 54.9 due to excess calories recommended low-calorie diet, weight loss likely contributing to limited mobility Mood disorder resume all home medications reporting SI, can't live with pain psych eval still pending sitter for safety clonidine was d/c earlier in admission presumably to avoid hypotension Stage II coccyx pressure - seen by wound care, present on admission. pt has chronic moisture dermatitis and less likely r/t pressure. recommend frequent position change, weight loss, barrier cream DVT prophylaxis - heparin Code status full code attending - Dr. Kraus patient will need continued inpatient stay due to intractable left hip pain with difficulty in ambulation requiring IV analgesics, psych evaluation, safe disposition dispo: PT rec STR but pt currently refusing Time Spent With Patient Time: Total time managing care of this patient today ____ minutes. Quality Stroke Does the patient have a stroke diagnosis?: No VTE Prior VTE?: No VTE Risk Level:: Medical - moderate - high VTE Device Contraindication: Treatment Not Indicated VTE Drug Contraindication: N/A - Med Ordered
--- NOTE | 2022-09-14 13:57 | PM.PSYCN ---
History of Present Illness Date of Service: 09/14/22 Chief Complaint: left hip intractable pain/acute on chronic kidney Reason for Consult: depression with SI HPI Narrative: CTSP for depression and SI. pt was found in her hospital bed. MD introduced himself and pt became irritable and dismissive, denigrating MD's ability to help her. she quickly escalated to yelling that she wants to kill herself, repeatedly yelling the same and responding poorly to attempts to engage her and understand the reasons for her position. no further productive engagement was possible and pt indicated she did not wish for MD to continue to be present in her room. MD excused himself, consulting with ED SW, hospitalist provider, and nurse mgr regarding the case. Past Psychiatric History: see billy consults around 03/28/22 for further information [facility] Medical History Abdominal pain Acute on chronic combined systolic and diastolic CHF (congestive heart failure) Adjustment disorder with mixed anxiety and depressed mood FELICIA (acute kidney injury) Asthma Cellulitis of right lower extremity CHF exacerbation Chronic pain Chronic respiratory failure with hypoxia CKD (chronic kidney disease) stage 3, GFR 30-59 ml/min Congestive heart failure Constipation COPD (chronic obstructive pulmonary disease) Decubitus ulcer Depression Diabetes Diabetic neuropathy, painful High cholesterol Hyperglycemia due to diabetes mellitus Hypertension Hypoxia MDD (major depressive disorder), recurrent episode, moderate Morbid obesity NICM (nonischemic cardiomyopathy) Obesity hypoventilation syndrome DANIEL (obstructive sleep apnea) Panic disorder Stasis dermatitis of both legs Stercoral colitis Uncontrolled type 2 diabetes mellitus with hyperglycemia Surgical History Hx of cholecystectomy Diagnostics Vital Signs (24Hr): Vital Signs - 24 hr 09/13/22 14:08 09/13/22 15:06 09/13/22 19:22 Temperature 98.2 F 97.9 F Pulse Rate 78 88 Respiratory Rate 18 20 Blood Pressure 137/61 152/67 H 121/57 L Pulse Oximetry 96 94 95 Oxygen Delivery Method Nasal Cannula Nasal Cannula Room Air Oxygen Flow Rate 2 3.0 95 09/14/22 04:00 09/14/22 07:34 Temperature 97.7 F 97.6 F Pulse Rate 75 67 Respiratory Rate 18 18 Blood Pressure 124/72 123/60 Pulse Oximetry 96 96 Oxygen Delivery Method Nasal Cannula Nasal Cannula Oxygen Flow Rate 2 3 BMI result Body Mass Index 54.8 Labs 09/08/22 12:44 09/14/22 05:16 Labs: Laboratory Results - last 48 hr 09/12/22 09/12/22 09/13/22 17:28 21:51 07:34 Sodium 140 Potassium 5.2 H Chloride 99 Carbon Dioxide 30 H Anion Gap 16 BUN 89 H Creatinine 1.67 H Estim Creat Clear Calc 47.2 Estimated GFR 31 POC Glucose 256 H 337 H Random Glucose 307 H Calcium 8.5 09/13/22 09/13/22 09/13/22 08:23 11:11 11:19 Sodium Potassium 5.4 H Chloride Carbon Dioxide Anion Gap BUN Creatinine Estim Creat Clear Calc Estimated GFR POC Glucose 256 H 248 H Random Glucose Calcium 09/13/22 09/14/22 09/14/22 19:25 05:16 07:37 Sodium 138 Potassium 5.6 H Chloride 97 Carbon Dioxide 27 Anion Gap 20 BUN 100 H Creatinine 1.57 H Estim Creat Clear Calc 50.2 Estimated GFR 33 POC Glucose 344 H 429 H* Random Glucose 445 H* Calcium 8.8 09/14/22 11:13 Sodium Potassium Chloride Carbon Dioxide Anion Gap BUN Creatinine Estim Creat Clear Calc Estimated GFR POC Glucose 456 H* Random Glucose Calcium Imaging Radiology Impressions: ITS Impressions Chest X-Ray 09/08/22 13:06 IMPRESSION: Stable enlargement of the cardiac silhouette. Venous Duplex 09/08/22 15:50 IMPRESSION: Limited but negative exam. WBC Scan Nuclear Medicine 09/11/22 17:00 IMPRESSION: 1. Uptake in loops of small bowel is nonspecific but is suspicious for inflammatory bowel disease. Clinical correlation is recommended. There are no abnormalities on the recent 08/25/2022 CT scan of the abdomen and pelvis to suggest any corresponding abnormalities. Bowel uptake of labeled white cells can be physiological. 2. No other abnormalities suspicious for foci of active infection are noted. The lumbar spine region appears unremarkable. Mental Status Exam Mental Status Exam Narrative: not cooperative with evaluation. verbally abusive and belittling. repeatedly saying she just wants to end her life and does not engage in further substantive conversation. agitated, angry, yelling, crying. adequately dressed and groomed, lying in hospital bed. morbidly obese, compression stockings on lower extremities B/L. agitated. not cooperative. thoughts perseverative, no paranoid delusions evident. affect labile, hyper-intense. endorsing SI. Medications Medications Current Medications Albuterol Sulfate (Albuterol Sulfate 90 Mcg 8 Gm Inhaler) 2 puff INHALE Q4H PRN PRN Reason: Dyspnea Amlodipine Besylate (Amlodipine Besylate 5 Mg Tablet) 5 mg PO DAILY [facility]; Protocol Last Admin: 09/14/22 08:21 Dose: 5 mg Aspirin (Aspirin Enteric Coated 81 Mg Tablet.Dr) 81 mg PO DAILY [facility] Last Admin: 09/14/22 08:20 Dose: 81 mg Atorvastatin Calcium (Atorvastatin Calcium 10 Mg Tablet) 10 mg PO DAILY [facility] Last Admin: 09/14/22 08:20 Dose: 10 mg Benzonatate (Benzonatate 100 Mg Capsule) 100 mg PO TID PRN PRN Reason: Cough Bumetanide (Bumetanide 1 Mg Tablet) 1 mg PO DAILY [facility]; Protocol Last Admin: 09/14/22 08:21 Dose: 1 mg Dexamethasone (Dexamethasone 4 Mg Tablet) 4 mg PO BID [facility] Last Admin: 09/14/22 08:21 Dose: 4 mg Dextrose (Dextrose 50 % 25 Gm/50 Ml Syringe) 25 gm IVPUSH Q15M PRN; Protocol PRN Reason: per Hypoglycemia Standing Ord. Docusate Sodium (Docusate Sodium 100 Mg Capsule) 100 mg PO DAILY PRN PRN Reason: Constipation Last Admin: 09/11/22 05:37 Dose: 100 mg Fluoxetine HCl (Fluoxetine Hcl 20 Mg Capsule) 40 mg PO DAILY [facility] Last Admin: 09/14/22 08:21 Dose: 40 mg Fluticasone Propionate (Fluticasone Propionate 100 Mcg Blst.W.Dev) 2 puff INHALE RBID [facility] Last Admin: 09/14/22 08:10 Dose: Not Given Gabapentin (Gabapentin 400 Mg Capsule) 400 mg PO TID [facility] Last Admin: 09/14/22 08:21 Dose: 400 mg Glucose (Glucose Gel 15 Gm Gel..Gram.) 15 gm PO Q15M PRN; Protocol PRN Reason: per Hypoglycemia Standing Ord. Heparin Sodium (Porcine) (Heparin Sodium,Porcine 5,000 Unit/Ml Vial) 5,000 unit SUBCUT Q8H [facility] Last Admin: 09/14/22 09:58 Dose: 5,000 unit Hydralazine HCl (Hydralazine Hcl 25 Mg Tablet) 25 mg PO TID [facility]; Protocol Last Admin: 09/14/22 08:20 Dose: 25 mg Hydromorphone HCl (Hydromorphone Hcl 0.5 Mg/0.5 Ml Syringe) 0.5 mg IVPUSH Q4H PRN; Protocol PRN Reason: Pain, Severe (Pain Scale 7-10) Last Admin: 09/14/22 05:39 Dose: 0.5 mg Insulin Glargine (Insulin Glargine,Hum.Rec.Anlog 100 Unit/Ml 10 Ml Vial) 40 unit SUBCUT BEDTIME [facility] Insulin Human Lispro (Insulin Lispro 100 Unit/Ml 3 Ml Vial) 0 unit SUBCUT QIDACHS [facility]; Protocol Last Admin: 09/14/22 11:57 Dose: 10 unit Melatonin (Melatonin 3 Mg Tablet) 3 mg PO BEDTIME PRN PRN Reason: Insomnia Last Admin: 09/13/22 19:28 Dose: 3 mg Metoprolol Succinate (Metoprolol Succinate Er 50 Mg Tab.Er.24h) 50 mg PO DAILY [facility]; Protocol Last Admin: 09/14/22 08:20 Dose: 50 mg Nystatin (Nystatin Powder 15 Gm Bottle) 1 appl TOPICAL BID [facility]; Protocol Last Admin: 09/14/22 08:22 Dose: Not Given Omeprazole (Omeprazole 20 Mg Capsule.Dr) 20 mg PO DAILY@0630 [facility] Last Admin: 09/14/22 05:35 Dose: 20 mg Ondansetron HCl (Ondansetron Hcl 4 Mg/2 Ml Vial) 4 mg IVPUSH Q8H PRN PRN Reason: Nausea and Vomiting Oxycodone HCl (Oxycodone Hcl Immed Release 5 Mg Tablet) 5 mg PO Q6H PRN PRN Reason: Pain, Moderate (Pain Scale 4-6 Last Admin: 09/14/22 10:59 Dose: 5 mg Risperidone (Risperidone 1 Mg Tablet) 1 mg PO BID [facility] Last Admin: 09/14/22 09:58 Dose: 1 mg Sodium Chloride (0.9 % Sodium Chloride Flush 3 Ml Syringe) 3 ml IVFLUSH QSHIFT [facility] Last Admin: 09/14/22 08:21 Dose: 3 ml Tizanidine HCl (Tizanidine Hcl 4 Mg Tablet) 4 mg PO BEDTIME [facility] Last Admin: 09/13/22 19:28 Dose: 4 mg Vitamin D (Cholecalciferol (Vitamin D3) 25 Mcg Tablet) 25 mcg PO DAILY [facility] Last Admin: 09/14/22 08:20 Dose: 25 mcg Allergies Allergies Allergy/AdvReac Type Severity Reaction Status Date / Time ibuprofen Allergy Intermediate vommiting, Verified 06/25/22 10:50 itching acetaminophen [Tylenol] Allergy Mild Unknown Verified 06/25/22 10:50 morphine AdvReac Intermediate vomiting Verified 06/25/22 10:50 Assessment & Plan Assessment & Plan (1) Agitation: Status: Acute Code(s): R45.1 - Restlessness and agitation Plan unable to adequately assess pt due to agitation. pt has been on risperidone 1 mg BID for some time. increase risperidone dosing to 1 TID and add risperidone 1 mg Q4H PRN agitation. reassess once pt is more calm. Total time managing care of this patient today __45__ minutes.
[2022-09-14 20:00] VITALS: BP 144/65; PULSE 75; RESP 18; TEMP 36.7; O2SAT 92
[2022-09-14] MEDS: TiZANidine HCL 4 MG TABLET PO (20:07)
[2022-09-14] MEDS: Melatonin 3 MG TABLET PO (20:08)
[2022-09-14] MEDS: Insulin Glargine,Hum.rec.anlog 100 UNIT/ML 10 ML VIAL 40 UNIT SUBCUT (20:09)
[2022-09-14 20:45] LABS: Glucose, Whole Blood 462 mg/dL (60-115)
--- NOTE | 2022-09-15 00:08 | PC.NURSE ---
Addendum entered by Elen Lares RN 09/15/22 06:46: Lab called for a critical glucosde =[id number] at 0628, Dr. Atkins was made aware at 0629, ordered Lispro 15 untis SC at 0639, POC to be check after 2 hrs as per MD. Addendum entered by Elen Lares RN 09/15/22 04:28: Around 0030, pt c/o feeling nauseous, prn Alexandra julio, POC =[id number], Dr. Atkins was updated, another 10 units of Lispro SC ordered and given after being verified by [employer], pt had relief of nausea later. Original Note: Pt had a KNS=328 at bedtime, Dr. Atkins was made aware, Lispro 20 SC was ordered, pt was able to tolerate snack.
[2022-09-15] MEDS: ondansetron HCL 4 MG/2 ML VIAL IVPUSH (00:41)
[2022-09-15 00:47] LABS: Glucose, Whole Blood 382 mg/dL (60-115)
[2022-09-15] MEDS: Heparin Sodium,Porcine 5,000 UNIT/ML VIAL 5000 UNIT SUBCUT ×3 (01:37→17:10)
[2022-09-15] MEDS: Insulin Lispro 100 UNIT/ML 3 ML VIAL 10 UNIT SUBCUT (01:37)
[2022-09-15 04:00] VITALS: BP 155/65; PULSE 79; RESP 18; TEMP 36.6; O2SAT 95
[2022-09-15] MEDS: HYDROmorphone HCl 0.5 MG/0.5 ML SYRINGE IVPUSH ×4 (04:07→21:15)
[2022-09-15] MEDS: Omeprazole 20 MG CAPSULE.DR PO (05:49)
[2022-09-15 06:28] LABS: Anion Gap 17 (12-20); Blood Urea Nitrogen 104 mg/dL (9-16); Calcium 8.4 mg/dL (8.4-10.2); Carbon Dioxide 25 mmol/L (22-29); Chloride 98 mmol/L (96-108); Creatinine Clr Calc Pharmacy 50.8; Estimated Glomerular Filt Rate 34; Potassium 5.3 mmol/L (3.3-5.1); Sodium 135 mmol/L (135-145)
[2022-09-15 06:29] LABS: Glucose Random 494 mg/dL (60-115)
[2022-09-15] MEDS: Insulin Lispro 100 UNIT/ML 3 ML VIAL 15 UNIT SUBCUT (06:44)
[2022-09-15 08:00] VITALS: BP 148/6; PULSE 66; RESP 18; TEMP 36.4; O2SAT 96
[2022-09-15 08:54] LABS: Glucose, Whole Blood 401 mg/dL (60-115)
--- NOTE | 2022-09-15 09:52 | P.PNIM_ITS ---
Subjective Subjective Date of Service: 09/15/22 Interval History: seen and examined this morning follow up for back pain sleeping Review of Systems Review of Systems: Yes all other systems are reviewed and are negative Constitutional Constitutional: Denies chills and Denies fever(s) Cardiovascular Cardiovascular: Denies chest pain, Denies palpitations and Denies dyspnea Respiratory Respiratory: Denies cough and Denies dyspnea Gastrointestinal Gastrointestinal: Denies abdominal pain, Denies nausea and Denies vomiting Endocrine Endocrine: Denies palpitations Physical Exam Vital Signs: Vital Signs: Last Vital Signs Temp 97.5 F 09/15/22 08:00 Pulse 66 09/15/22 08:00 Resp 18 09/15/22 08:00 BP 148/6 H 09/15/22 08:00 Pulse Ox 96 09/15/22 08:00 O2 Del Method 09/15/22 08:00 O2 Flow Rate 3 09/15/22 08:00 BMI result Body Mass Index 54.8 Appearing in no acute distress lung sounds are clear to auscultation heart regular rate rhythm, clear S1, S2 positive bowel sounds, abdomen is soft, nontender neuro patient is alert x3, no focal deficits Objective Data Active Medications Albuterol Sulfate (Albuterol Sulfate 90 Mcg 8 Gm Inhaler) 2 puff INHALE Q4H PRN PRN Reason: Dyspnea Amlodipine Besylate (Amlodipine Besylate 5 Mg Tablet) 5 mg PO DAILY [facility]; Protocol Last Admin: 09/14/22 08:21 Dose: 5 mg Documented By: RADHA Aspirin (Aspirin Enteric Coated 81 Mg Tablet.) 81 mg PO DAILY [facility] Last Admin: 09/14/22 08:20 Dose: 81 mg Documented By: RADHA Atorvastatin Calcium (Atorvastatin Calcium 10 Mg Tablet) 10 mg PO DAILY [facility] Last Admin: 09/14/22 08:20 Dose: 10 mg Documented By: RADHA Benzonatate (Benzonatate 100 Mg Capsule) 100 mg PO TID PRN PRN Reason: Cough Bumetanide (Bumetanide 1 Mg Tablet) 1 mg PO DAILY [facility]; Protocol Last Admin: 09/14/22 08:21 Dose: 1 mg Documented By: RADHA Dextrose (Dextrose 50 % 25 Gm/50 Ml Syringe) 25 gm IVPUSH Q15M PRN; Protocol PRN Reason: per Hypoglycemia Standing Ord. Docusate Sodium (Docusate Sodium 100 Mg Capsule) 100 mg PO DAILY PRN PRN Reason: Constipation Last Admin: 09/11/22 05:37 Dose: 100 mg Documented By: TANVIR Fluoxetine HCl (Fluoxetine Hcl 20 Mg Capsule) 40 mg PO DAILY [facility] Last Admin: 09/14/22 08:21 Dose: 40 mg Documented By: RADHA Fluticasone Propionate (Fluticasone Propionate 100 Mcg Blst.W.Dev) 2 puff INHALE RBID [facility] Last Admin: 09/15/22 08:27 Dose: Not Given Documented By: CRISTY Non-Admin Reason: Patient Refused Gabapentin (Gabapentin 400 Mg Capsule) 400 mg PO TID [facility] Last Admin: 09/14/22 20:08 Dose: 400 mg Documented By: JESSICA Glucose (Glucose Gel 15 Gm Gel..Gram.) 15 gm PO Q15M PRN; Protocol PRN Reason: per Hypoglycemia Standing Ord. Heparin Sodium (Porcine) (Heparin Sodium,Porcine 5,000 Unit/Ml Vial) 5,000 unit SUBCUT Q8H [facility] Last Admin: 09/15/22 01:37 Dose: 5,000 unit Documented By: JESSICA Hydralazine HCl (Hydralazine Hcl 25 Mg Tablet) 25 mg PO TID [facility]; Protocol Last Admin: 09/14/22 20:07 Dose: 25 mg Documented By: JESSICA Comments: [id number]=[id number] h 75 Hydromorphone HCl (Hydromorphone Hcl 0.5 Mg/0.5 Ml Syringe) 0.5 mg IVPUSH Q4H PRN; Protocol PRN Reason: Pain, Severe (Pain Scale 7-10) Last Admin: 09/15/22 04:07 Dose: 0.5 mg Documented By: JESSICA Insulin Glargine (Insulin Glargine,Hum.Rec.Anlog 100 Unit/Ml 10 Ml Vial) 40 unit SUBCUT BEDTIME [facility] Last Admin: 09/14/22 20:09 Dose: 40 unit Documented By: JESSICA Insulin Human Lispro (Insulin Lispro 100 Unit/Ml 3 Ml Vial) 0 unit SUBCUT QIDACHS [facility]; Protocol Last Admin: 09/14/22 20:09 Dose: 10 unit Documented By: JESSICA Insulin Human Lispro (Insulin Lispro 100 Unit/Ml 3 Ml Vial) 5 unit SUBCUT QIDACHS [facility] Melatonin (Melatonin 3 Mg Tablet) 3 mg PO BEDTIME PRN PRN Reason: Insomnia Last Admin: 09/14/22 20:08 Dose: 3 mg Documented By: JESSICA Metoprolol Succinate (Metoprolol Succinate Er 50 Mg Tab.Er.24h) 50 mg PO DAILY [facility]; Protocol Last Admin: 09/14/22 08:20 Dose: 50 mg Documented By: RADHA Nystatin (Nystatin Powder 15 Gm Bottle) 1 appl TOPICAL BID [facility]; Protocol Last Admin: 09/14/22 21:11 Dose: Not Given Documented By: JESSICA Non-Admin Reason: Patient Refused Omeprazole (Omeprazole 20 Mg Capsule.) 20 mg PO DAILY@0630 [facility] Last Admin: 09/15/22 05:49 Dose: 20 mg Documented By: JESSICA Ondansetron HCl (Ondansetron Hcl 4 Mg/2 Ml Vial) 4 mg IVPUSH Q8H PRN PRN Reason: Nausea and Vomiting Last Admin: 09/15/22 00:41 Dose: 4 mg Documented By: JESSICA Oxycodone HCl (Oxycodone Hcl Immed Release 5 Mg Tablet) 5 mg PO Q6H PRN PRN Reason: Pain, Moderate (Pain Scale 4-6 Last Admin: 09/14/22 10:59 Dose: 5 mg Documented By: NALLELY Risperidone (Risperidone 1 Mg Tablet) 1 mg PO TID [facility] Last Admin: 09/14/22 20:08 Dose: 1 mg Documented By: JESSICA Risperidone (Risperidone 1 Mg Tablet) 1 mg PO Q4H PRN PRN Reason: agitation Sodium Chloride (0.9 % Sodium Chloride Flush 3 Ml Syringe) 3 ml IVFLUSH QSHIFT [facility] Last Admin: 09/14/22 20:10 Dose: 3 ml Documented By: JESSICA Tizanidine HCl (Tizanidine Hcl 4 Mg Tablet) 4 mg PO BEDTIME [facility] Last Admin: 09/14/22 20:07 Dose: 4 mg Documented By: JESSICA Vitamin D (Cholecalciferol (Vitamin D3) 25 Mcg Tablet) 25 mcg PO DAILY [facility] Last Admin: 09/14/22 08:20 Dose: 25 mcg Documented By: RADHA Labs 09/08/22 12:44 09/15/22 05:12 Labs: Laboratory Results - last 24 hr 09/14/22 09/14/22 09/15/22 11:13 19:42 00:42 Anion Gap Estim Creat Clear Calc Estimated GFR POC Glucose 456 H* 462 H* 382 H* Random Glucose Calcium 09/15/22 09/15/22 05:12 08:36 Anion Gap 17 Estim Creat Clear Calc 50.8 Estimated GFR 34 POC Glucose 401 H* Random Glucose 494 H* Calcium 8.4 Assessment and Plan (1) Hyperkalemia: Status: Acute (2) Back pain: Status: Acute Plan 62-year-old female here with left hip pain and bilateral lower extremity swelling Intractable left hip pain due to left lumbar radiculopathy Persistent pain Outpatient MRI lumbar spine ordered by PCP on September 04 showed L5-S1 large left lateral disc protrusion with severe left-sided foraminal stenosis and compression of left 5th nerve root, early osteomyelitis diskitis could appear similar, L4-L5 moderate central canal stenosis, and left foraminal stenosis causing left L4 nerve compression. continue IV Dilaudid and oxycodone, pt. allergic to Tylenol and ibuprofen received one dose of prednisone 09/09, decadron started 09/12 doesn't seem to be helping, will start to wean PT rec STR - pt declines at this time Hyperkalemia likely r/t steroids, ckd lokelma Acute on chronic kidney disease stage III Creatinine returned to baseline, avoid nephrotoxins, all medication renally dosed, resume diuretics gradually Nephrology following Bilateral lower extremity swelling due to chronic stasis Likely due to Norvasc/hydralazine, prolong sitting, normal LFTs, no evidence of acute congestive heart failure, negative venous Doppler study for DVT Norvasc dose decreased to 5 mg, apply Tanmay wrap recommend to keep leg elevated continue diuretics Bumex 1 mg Chronic CHF with reduced EF no acute exacerbation continue metoprolol and Bumex (on decreased dose of bumex as above) Diabetes mellitus with hyperglycemia secondary to steroids diabetic diet, insulin sliding scale will increase Lantus to 40 units at bedtime, 5 units lisinopril with meals and at bedtime COPD no acute exacerbation continue a DuoNeb updraft, oxygen 94% on room air Obstructive sleep apnea not compliant with CPAP due to claustrophobia Morbid obesity BMI 54.9 due to excess calories Discussed importance of weight management as this may be contributing to worseni ng of other comorbidities Mood disorder reporting SI, can't live with pain psych eval, unable to assess as patient was agitated sitter for safety Stage II coccyx pressure - seen by wound care, present on admission. pt has chronic moisture dermatitis and less likely r/t pressure. recommend frequent position change, weight loss, barrier cream DVT prophylaxis - heparin Code status full code attending - Dr. Sharma patient will need continued inpatient stay due to intractable left hip pain with difficulty in ambulation requiring IV analgesics, psych evaluation, safe disposition dispo: PT rec STR but pt currently refusing Time Spent With Patient Time: Total time managing care of this patient today ____ minutes. Quality Stroke Does the patient have a stroke diagnosis?: No VTE Prior VTE?: No VTE Risk Level:: Medical - moderate - high VTE Device Contraindication: Treatment Not Indicated VTE Drug Contraindication: N/A - Med Ordered
[2022-09-15] MEDS: FLUoxetine HCl 20 MG CAPSULE 40 MG PO (10:20)
[2022-09-15] MEDS: Gabapentin 400 MG CAPSULE PO ×3 (10:20→21:52)
[2022-09-15] MEDS: Metoprolol Succinate ER 50 MG TAB.ER.24H PO (10:20)
[2022-09-15] MEDS: Bumetanide 1 MG TABLET PO (10:20)
[2022-09-15] MEDS: Atorvastatin Calcium 10 MG TABLET PO (10:20)
[2022-09-15] MEDS: hydrALAZINE HCl 25 MG TABLET PO ×3 (10:20→21:52)
[2022-09-15] MEDS: Aspirin Enteric Coated 81 MG TABLET.DR PO (10:20)
[2022-09-15] MEDS: risperiDONE 1 MG TABLET PO ×3 (10:20→21:52)
[2022-09-15] MEDS: amLODIPine Besylate 5 MG TABLET PO (10:21)
[2022-09-15] MEDS: Sodium Zirconium Cyclosilicate 10 GM POWD.PACK PO (10:21)
[2022-09-15] MEDS: Cholecalciferol (Vitamin D3) 25 MCG TABLET PO (10:21)
[2022-09-15] MEDS: Insulin Lispro 100 UNIT/ML 3 ML VIAL SUBCUT ×8 (10:21→21:54)
[2022-09-15] MEDS: 0.9 % Sodium Chloride Flush 3 ML SYRINGE IVFLUSH ×3 (10:21→21:18)
[2022-09-15 11:39] LABS: Glucose, Whole Blood 304 mg/dL (60-115)
--- NOTE | 2022-09-15 12:22 | P.PNNP_ITS ---
Subjective Subjective Date of Service: 09/15/22 Interval history: Seen and examined, events noted Feels sless swollen Physical Exam Vital Signs: Vital Signs: Last Vital Signs Temp 97.5 F 09/15/22 08:00 Pulse 66 09/15/22 08:00 Resp 18 09/15/22 08:00 BP 148/6 H 09/15/22 08:00 Pulse Ox 96 09/15/22 08:00 O2 Del Method 09/15/22 08:00 O2 Flow Rate 3 09/15/22 08:00 BMI result Body Mass Index 54.8 Const: Other: Obese woman, crying in bed unable to engage in reasonable interaction General: healthy appearing HEENT: Other: runny nose PERRLA Neck: Other: No adenopathy or JVD one xam No palpable thyromegaly Neck: Yes normal visual inspection and Yes no lymphade nopathy Chest: Other: No rales Resp: Effort & Inspection: no respiratory distress Cardio: Jugular venous distension: no JVD Palpation: normal PMI Rate: regular rate Rhythm: regular rhythm Heart sounds: S1 normal heart sound present GI: Other: Protuberant, obese abdomen with normal bowel sounds Palpation (GI): nontender and no guarding Extrem: Other: wrapped edema 2 plus pretib General: Yes edema (+4 pitting bilaterally ) Objective Data Labs 09/08/22 12:44 09/15/22 05:12 Labs: Laboratory Results - last 24 hr 09/14/22 09/15/22 09/15/22 19:42 00:42 05:12 Sodium 135 Potassium 5.3 H Chloride 98 Carbon Dioxide 25 Anion Gap 17 BUN 104 H Creatinine 1.55 H Estim Creat Clear Calc 50.8 Estimated GFR 34 POC Glucose 462 H* 382 H* Random Glucose 494 H* Calcium 8.4 09/15/22 09/15/22 08:36 11:34 Sodium Potassium Chloride Carbon Dioxide Anion Gap BUN Creatinine Estim Creat Clear Calc Estimated GFR POC Glucose 401 H* 304 H Random Glucose Calcium Microbiology Microbiology Results: Microbiology 09/08/22 13:15 Blood - Venous Blood Culture - Final No growth after 5 days. 09/08/22 12:44 Blood - Venous Blood Culture - Final No growth after 5 days. Procedures Date of Service Date of Service: 09/15/22 Assessment & Plan Assessment and plan (1) CKD (chronic kidney disease) stage 3, GFR 30-59 ml/min: Status: Acute Assessment and Plan: This may be her new baseline creatinine (2) Hypertension: Status: Acute Assessment and Plan: Not at target yet (3) COPD (chronic obstructive pulmonary disease): Status: Acute (4) Hyperkalemia: Status: Acute Assessment and Plan: Needs low K diet Plan - FELICIA: SCr close to BSL as she has vol senstive renal func with SCr range 10-2.0 - Incr BUN: d/t diuresis but need to r/o UGIB; ques if she was on STDs recently as cause of incr BUN - Hypervol: improved with diuretics REC: hold diuretic, check stools; avoid RASi for now given K still high Time Spent With Patient Time: Total time managing care of this patient today ____ minutes. Progress Note: Quality Stroke Does the patient have a stroke diagnosis?: No
--- NOTE | 2022-09-15 13:56 | MHC.CLN ---
F/U DIET=DM 2000 KCALS, 2 GRAM SODIUM, LOW POTASSIUM. SEEN BY NEPHROLOGY 09/15 WITH REC FOR LOW POTASSIUM DIET. LABS REVIEWED SHOWING BUN, Cr, POTASSIUM AND RANDOM GLUCOSE ELEVATED. INTAKE AT MEALS VARIABLE, 0-100%. SUPPLEMENT DISCONTINUED WITH LOW POTASSIUM DIET. MONITOR PO INTAKE, LABS, AND WOUND HEALING.SUPPLEMENT ACCEPTANCE
[2022-09-15 15:43] VITALS: BP 138/64; PULSE 63; RESP 16; TEMP 36.1; O2SAT 96
[2022-09-15 16:50] LABS: Glucose, Whole Blood 237 mg/dL (60-115)
[2022-09-15 19:23] VITALS: BP 139/63; PULSE 65; RESP 18; TEMP 36.3; O2SAT 96
[2022-09-15 20:29] LABS: Glucose, Whole Blood 276 mg/dL (60-115)
[2022-09-15] MEDS: TiZANidine HCL 4 MG TABLET PO (21:52)
[2022-09-15] MEDS: Insulin Glargine,Hum.rec.anlog 100 UNIT/ML 10 ML VIAL 40 UNIT SUBCUT (21:52)
[2022-09-16] MEDS: HYDROmorphone HCl 0.5 MG/0.5 ML SYRINGE IVPUSH ×2 (01:22→12:30)
[2022-09-16] MEDS: Heparin Sodium,Porcine 5,000 UNIT/ML VIAL 5000 UNIT SUBCUT ×2 (01:23→08:35)
[2022-09-16 03:41] VITALS: RESP 17
--- NOTE | 2022-09-16 07:46 | PM.DS ---
DS: Providers Provider Date of Service: 09/16/22 Date of admission: 09/08/22 16:54 Primary care physician: Tavo Huber MD Consults: 09/08/22 19:42 Consult to Wound Care Routine Consulting Provider: Ramisaurooon Wound Ca,Janis Reason for consultation: pressure injury stage 2 no the coccyx 09/09/22 08:15 Consult to Nephrology Routine Consulting Provider: Manoj Cespedes Reason for consultation: felicia /bp managment Has provider been notified: No 09/09/22 12:43 Consult to Infectious Diseases Routine Consulting Provider: Gina Macedo Reason for consultation: ? discitis/osteomyelitis lumbar disc Has provider been notified: No 09/12/22 16:12 Consult for Sitter Routine Reason for consultation: SI Has provider been notified: Yes Consult to Psychiatry Routine Consulting Provider: Psych Covering Reason for consultation: depression with SI Has provider been notified: No Attending physician on discharge: Hood Sharma Discharging clinician: Johana Francis DS: Diagnosis Discharge Diagnosis (1) Hyperkalemia: Status: Acute (2) Back pain: Status: Acute DS: Summary Hospital Course Hospital Course: HP as per admittin gprovider 62-year-old female with past medical history of obstructive sleep apnea, obesity hypoventilation syndrome, congestive heart failure with reduced EF, chronic kidney disease stage IIIA, history of COPD/asthma , presented to [facility] due to left hip pain with difficulty in ambulation of 2 weeks duration, associated with bilateral lower extremity swelling, patient denies fall, no trauma, complain of pain with movement and walking, she was seen at [facility] on August 25 with similar symptoms at that time a CT abdomen and pelvis showed no osseous abnormality according to patient she had an MRI left hip done at [address] [place] [address] Huber 1 week ago but do not have the report, since pain was getting worse she came to ED, she denies associated shortness of breath, no orthopnea, no PND, denies chest pain, no palpitation, no shortness of breath denies nausea vomiting abdominal pain, no fevers, no chills, labs showed normal electrolytes, creatinine 1.98 with baseline creatinine around 1.7 blood sugars stable normal liver function, normal protein and albumin, normal recent TSH Doppler study lower extremity showed no DVT, chest x-ray showed no infiltrate, no evidence of CHF BNP of 63 normal troponins patient is being admitted to [facility] due to intractable left hip pain with difficulty in ambulation as well as bilateral lower extremity edema . Intractable left hip pain due to left lumbar radiculopathy. baseline Outpatient MRI lumbar spine ordered by PCP on September 04 showed L5-S1 large left lateral disc protrusion with severe left-sided foraminal stenosis and compression of left 5th nerve root, early osteomyelitis diskitis could appear similar, L4-L5 moderate central canal stenosis, and left foraminal stenosis causing left L4 nerve compression. treated with IV Dilaudid and oxycodone, pt. allergic to Tylenol and ibuprofen received one dose of prednisone 09/09, decadron started 09/12,steroids did not help PT rec STR - pt declined Hyperkalemia likely r/t steroids, ckd treated with lokelma Acute on chronic kidney disease stage III Creatinine returned to baseline, avoid nephrotoxins, all medication renally dosed, resume diuretics gradually Nephrology following Bilateral lower extremity swelling due to chronic stasis Likely due to Norvasc/hydralazine, prolong sitting, normal LFTs, no evidence of acute congestive heart failure, negative venous Doppler study for DVT Norvasc dose decreased to 5 mg, apply Tanmay wrap recommend to keep leg elevated continue diuretics home dose Chronic CHF with reduced EF no acute exacerbation continue metoprolol and Bumex (on decreased dose of bumex as above) Diabetes mellitus with hyperglycemia secondary to steroids diabetic diet, insulin sliding scale treated with Lantus to 40 units at bedtime, 5 units lisinopril with meals and at bedtime continue home medications COPD no acute exacerbation continue home medications Obstructive sleep apnea not compliant with CPAP due to claustrophobia Morbid obesity BMI 54.9 due to excess calories Discussed importance of weight management as this may be contributing to worsening of other comorbidities Mood disorder psych eval,? unable to assess as patient was agitated sitter for safety Stage II coccyx pressure - seen by wound care, present on admission. pt has chronic moisture dermatitis and less likely r/t pressure. recommend frequent position change, weight loss, barrier cream Time Spent with Patient Time attestation: Total time managing care of this patient today ____ minutes. Discharge coordination time: Greater than 30 minutes Quality: Safe Use of Opioids Does Pt have an Active Cancer Diagnosis on the Problem List?: No Quality: Stroke Does the patient have a stroke diagnosis?: No Physical Exam Vital Signs: Vital Signs: Last Vital Signs Temp 97.4 F 09/15/22 19:23 Pulse 65 09/15/22 19:23 Resp 17 09/16/22 03:41 BP 139/63 09/15/22 19:23 Pulse Ox 96 09/15/22 19:23 O2 Del Method 09/15/22 19:23 O2 Flow Rate 2 09/15/22 19:23 BMI result Body Mass Index 54.8 Appearing in no acute distress head is normocephalic atraumatic eyes pupils are PERRLA sclera is anicteric mouth throat mucous membranes are intact and moist neck is supple no lymphadenopathy, no JVD noted lung sounds are clear to auscultation heart regular rate rhythm, clear S1, S2 positive bowel sounds, abdomen is soft, nontender neuro patient is alert x3, no focal deficits Chronic LE edema DS: Data Data Completed and Pending Completed studies during hospitalization [Text1]: Procedures Assistance with Respiratory Ventilation, Less than 24 Consecutive Hours, Continuous Positive Airway Pressure (12/11/20) Excision of Buttock Subcutaneous Tissue and Fascia, Open Approach (04/20/22) Extirpation of Matter from Rectum, Via Natural or Artificial Opening (04/20/22) Labs on day of discharge: Laboratory Results - last 24 hr 09/15/22 09/15/22 09/15/22 08:36 11:34 16:46 POC Glucose 401 H* 304 H 237 H 09/15/22 20:16 POC Glucose 276 H Discharge Plan Discharge Anticipated Discharge Date/Time: 09/16/22 07:36 Patient Disposition: Home Health Service Discharge Diagnosis: Back pain hyperkalemia acute on chronic FELICIA on CKD III Edema Referrals: [facility] [Outside] - 1 Day (RESUMPTION OF CARE AND HOME PT) Tavo Huber MD [Primary Care Provider] - 1 Week Discharge Medications: New amlodipine 5 mg Tablet 5 mg PO DAILY Qty: 30 0RF Protocol: Hold for SBP< HOLD for SBP < : 90 Continued (DME) blood-glucose meter [FreeStyle Lite Meter] Kit See Rx Instructions .Route Qty: 1 0RF Rx Instructions: As directed checks POC 4 X/day insulin lispro [Humalog U-100 Insulin] 100 unit/mL Solution See Protocol subcut QIDACHS Qty: 1 0RF Protocol: Insulin Correction Scale Less than or equal to 110 ---- Give (units): 0 111 to 150 Give (units): 0 151 to 200 Give (units): 2 201 to 250 Give (units): 4 251 to 300 Give (units): 6 301 to 350 Give (units): 8 Greater than 350 Give (units): 10 Call MD if Blood Glucose > : 350 Rx Instructions: sliding scale fluoxetine 40 mg capsule 40 mg PO DAILY metoprolol succinate 50 mg tablet extended release 24 hr 50 mg PO DAILY aspirin 81 mg tablet,delayed release (DR/EC) 81 mg PO DAILY simvastatin 20 mg tablet 20 mg PO BEDTIME albuterol sulfate [ProAir HFA] 90 mcg/actuation HFA aerosol inhaler 2 puff inhalation Q4H PRN (Reason: Dyspnea) fluticasone propionate [Flovent HFA] 110 mcg/actuation HFA aerosol inhaler 2 puff inhalation BID tizanidine 4 mg Tablet 4 mg PO BEDTIME isosorbide mononitrate 30 mg Tablet Extended Release 24 Hr 30 mg PO DAILY bumetanide 2 mg tablet 1 tab PO DAILY amlodipine 10 mg tablet 1 tab PO DAILY cholecalciferol (vitamin D3) 25 mcg (1,000 unit) capsule 1 cap PO DAILY meclizine 25 mg Tablet 25 mg PO TID PRN (Reason: Dizziness) docusate sodium 100 mg Capsule 100 mg PO DAILY PRN (Reason: Constipation) Qty: 30 0RF silver sulfadiazine 1 % Cream 1 appl TOPICAL BID Rx Instructions: apply a 1.5 mm thickness, to buttock wounds gabapentin 400 mg Capsule 400 mg PO TID nystatin 100,000 unit/gram Powder 1 appl TOPICAL BID Protocol: Apply to: Apply to: AFFECTED AREA insulin glargine [Lantus U-100 Insulin] 100 unit/mL solution 50 unit subcut BID clotrimazole 1 % Cream 1 appl TOPICAL BID Protocol: Apply to: Apply to: AFFECTED AREA clonidine HCl 0.1 mg Tablet 0.1 mg PO TID PRN (Reason: hyperarousal, anxiety, panic) Qty: 90 0RF Protocol: Hold for SBP< HOLD for SBP < : 90 hydralazine 25 mg Tablet 25 mg PO BID Qty: 60 0RF Protocol: Hold for SBP< HOLD for SBP < : 90 spironolactone 25 mg Tablet 25 mg PO DAILY Qty: 30 0RF Protocol: Hold for SBP< HOLD for SBP < : 90 bumetanide 1 mg Tablet 1 mg PO BEDTIME Qty: 30 0RF Protocol: Hold for SBP< HOLD for SBP < : 90 risperidone 1 mg tablet 1 tab PO BID (DME) FreeStyle Lite Strips Strip See Rx Instructions .ROUTE BID Qty: 10 Rx Instructions: As directed (DME) lancets [FreeStyle Lancets] 28 gauge misc See Rx Instructions .ROUTE QID Qty: 100 Rx Instructions: As directed (DME) insulin syringe-needle U-100 [BD Insulin Syringe Ultra-Fine] 1 mL 31 gauge x 5/16 syringe See Rx Instructions .ROUTE QID Qty: 10 Rx Instructions: As directed Discharge Orders: Discharge Order (Routine); Ordered 09/16/22 Ordered By: Johana Francis Diet: Advance to usual diet Activity on Discharge: As tolerated Stand Alone Forms: Patient Portal Discharge page Care Plan Goals: Complete resolution of symptoms Health Concerns: Back pain hyperkalemia acute on chronic FELICIA on CKD III Edema Plan of Treatment: Follow up with primary care provider as needed Take all medications as prescribed Assessment: See discharge summary
[2022-09-16 07:54] VITALS: BP 129/60; PULSE 61; RESP 18; TEMP 36.1; O2SAT 97
[2022-09-16 07:59] LABS: Glucose, Whole Blood 296 mg/dL (60-115)
[2022-09-16] MEDS: Insulin Lispro 100 UNIT/ML 3 ML VIAL SUBCUT ×4 (08:33→12:26)
[2022-09-16] MEDS: 0.9 % Sodium Chloride Flush 3 ML SYRINGE IVFLUSH (08:33)
[2022-09-16 08:48] LABS: Anion Gap 15 (12-20); Blood Urea Nitrogen 103 mg/dL (9-16); Calcium 8.6 mg/dL (8.4-10.2); Carbon Dioxide 28 mmol/L (22-29); Chloride 102 mmol/L (96-108); Creatinine Clr Calc Pharmacy 53.9; Estimated Glomerular Filt Rate 36; Glucose Random 295 mg/dL (60-115); Potassium 4.5 mmol/L (3.3-5.1); Sodium 140 mmol/L (135-145)
[2022-09-16] MEDS: Docusate Sodium 100 MG CAPSULE PO (11:19)
[2022-09-16] MEDS: polyethylene glycoL 3350 17 GM POWD.PACK PO (11:26)
[2022-09-16] MEDS: risperiDONE 1 MG TABLET PO (11:29)
[2022-09-16 11:34] LABS: Glucose, Whole Blood 209 mg/dL (60-115)
--- NOTE | 2022-09-16 12:31 | MHC.CM.PN ---
PER HOSPITALIST PT CLEARED FOR D/C HOME W/RESUMP OF [facility] PERDUE FOR BID VISITS AN HOME PT, PER PT'S NIECE [facility] CM TO SET UP TRANSPORT [facility] NOTIFIED AND D/C SUMMARY TO BE FAXED TO [phone] AND DONI REPORTS SHE WILL MEET PT AT [facility] EARLY EVENING AND GET HER READY FOR BED AND SETTLED.
--- NOTE | 2022-09-16 12:34 | MHC.CARE ---
T/w met with patient for CARE assessment, patient is denying active SI, will be referred for OP treaters and is agreeable to this. RN/ PA on medical floor aware.
--- NOTE | 2022-09-16 14:53 | P.PNNP_ITS ---
Subjective Subjective Date of Service: 09/16/22 Interval history: Seen and examined, events noted Physical Exam Vital Signs: Vital Signs: Last Vital Signs Temp 97.0 F 09/16/22 07:54 Pulse 61 09/16/22 07:54 Resp 18 09/16/22 07:54 BP 129/60 09/16/22 07:54 Pulse Ox 97 09/16/22 07:54 O2 Del Method 09/16/22 07:54 O2 Flow Rate 1 09/16/22 07:54 BMI result Body Mass Index 54.8 Const: Other: Obese woman, crying in bed unable to engage in reasonable interaction General: healthy appearing HEENT: Other: runny nose PERRLA Neck: Other: No adenopathy or JVD one xam No palpable thyromegaly Neck: Yes normal visual inspection and Yes no lymphadenopathy Chest: Other: No rales Resp: Effort & Inspection: no respiratory distress Cardio: Jugular venous distension: no JVD Palpation: normal PMI Rate: regular rate Rhythm: regular rhythm Heart sounds: S1 normal heart sound p resent GI: Other: Protuberant, obese abdomen with normal bowel sounds Palpation (GI): nontender and no guarding Extrem: Other: wrapped edema 2 plus pretib General: Yes edema (+4 pitting bilaterally ) Objective Data Labs 09/08/22 12:44 09/16/22 07:50 Labs: Laboratory Results - last 24 hr 09/15/22 09/15/22 09/16/22 16:46 20:16 07:50 Sodium 140 Potassium 4.5 Chloride 102 Carbon Dioxide 28 Anion Gap 15 BUN 103 H Creatinine 1.46 H Estim Creat Clear Calc 53.9 Estimated GFR 36 POC Glucose 237 H 276 H Random Glucose 295 H Calcium 8.6 09/16/22 09/16/22 07:53 11:30 Sodium Potassium Chloride Carbon Dioxide Anion Gap BUN Creatinine Estim Creat Clear Calc Estimated GFR POC Glucose 296 H 209 H Random Glucose Calcium Microbiology Microbiology Results: Microbiology 09/08/22 13:15 Blood - Venous Blood Culture - Final No growth after 5 days. 09/08/22 12:44 Blood - Venous Blood Culture - Final No growth after 5 days. Procedures Date of Service Date of Service: 09/16/22 Assessment & Plan Assessment and plan (1) CKD (chronic kidney disease) stage 3, GFR 30-59 ml/min: Status: Acute Assessment and Plan: This may be her new baseline creatinine (2) Hypertension: Status: Acute Assessment and Plan: Not at target yet (3) COPD (chronic obstructive pulmonary disease): Status: Acute (4) Hyperkalemia: Status: Acute Assessment and Plan: Needs low K diet Plan - FELICIA: SCr close to BSL as she has vol senstive renal func with SCr range 10-2.0 - Incr BUN: d/t diuresis but need to r/o UGIB; ques if she was on STDs recently as cause of incr BUN - Hypervol: improved with diuretics REC: cont to hold diuretic, check stools; avoid RASi for now given K still high ok to d/c from renal standpoint and close f/u as outpt Time Spent With Patient Time: Total time managing care of this patient today ____ minutes. Progress Note: Quality Stroke Does the patient have a stroke diagnosis?: No
--- NOTE | 2022-09-17 09:59 | MHC.CARE ---
[facility] ([phone]) was called to make visiting OP referral. Was notified that pt would have to call herself to make referral since she is discharged home. software developer manager is following up w/ patient to notify.
== END 2022-09-16 14:54 | disposition home health service (06) | DRG 347 ==
LOC: HO.ED 16:25 → HO.EDOVER 17:00 → HO.IMC 17:02 → HO.S3 09-12 20:47
PROVIDERS: Physician Assistant; Physician Assistant Medical; Admitting Provider Hospitalist; Emergency Provider Emergency Medicine; PCP Internal Medicine; Visit Provider Nurse Practitioner Acute Care
DX: M54.16 Radiculopathy, lumbar region (principal); I13.0 Hypertensive heart and chronic kidney disease with heart failure and stage 1 through stage 4 chronic kidney disease, or unspecified chronic kidney disease; N17.9 Acute kidney failure, unspecified; E66.2 Morbid (severe) obesity with alveolar hypoventilation; I50.22 Chronic systolic (congestive) heart failure; E11.22 Type 2 diabetes mellitus with diabetic chronic kidney disease; Z68.43 Body mass index [BMI] 50.0-59.9, adult; L03.115 Cellulitis of right lower limb; R45.851 Suicidal ideations; L89.152 Pressure ulcer of sacral region, stage 2; N18.31 Chronic kidney disease, stage 3a; L03.116 Cellulitis of left lower limb; J44.9 Chronic obstructive pulmonary disease, unspecified; E11.65 Type 2 diabetes mellitus with hyperglycemia; F32.9 Major depressive disorder, single episode, unspecified; E87.5 Hyperkalemia; F40.240 Claustrophobia; L22 Diaper dermatitis; Z20.822 Contact with and (suspected) exposure to COVID-19; Z91.14 Patient's other noncompliance with medication regimen; I87.8 Other specified disorders of veins; Z87.891 Personal history of nicotine dependence; Z88.5 Allergy status to narcotic agent; Z88.6 Allergy status to analgesic agent; Z79.4 Long term (current) use of insulin; Z79.51 Long term (current) use of inhaled steroids; Z79.82 Long term (current) use of aspirin; Z79.899 Other long term (current) drug therapy
CPT/HCPCS: 36415; 71045; 78306; 80048; 80076; 81003; 82947; 83036; 83605; 83690; 83735; 83880; 84132; 84484; 85025; 85610; 85652; 87040; 87635; 93005; 93970; 97162; 97530; 99285; A9521; J0696; J1170; J1643; J2405; J8540; S9485

== ENCOUNTER 2022-09-20 16:53 | Emergency (ER) | payer OTHER, MEDICAID, SELFPAY ==
[2022-09-20 17:10] VITALS: BP 127/38; PULSE 62; RESP 16; TEMP 37; O2SAT 93; BMI 49.2
[2022-09-20 17:12] VITALS: BP 127/38; PULSE 62; RESP 16; TEMP 36.9; O2SAT 93
[2022-09-20 18:56] LABS: MANUAL DIFF FLAG NO
[2022-09-20 19:00] LABS: Basophils Percent Auto 0.1 % (0-2); Eosinophils Absolute Auto 0.2 X10*3/uL (0.0-0.4); Eosinophils Percent Auto 1.2 % (0-4); Hematocrit 33.1 % (37.0-47.0); Hemoglobin 10.6 g/dl (12.0-16.0); Imm Gran Abs Auto 0.16 X10*3/uL (0.00-0.03); Imm Gran Pct Auto 1.1 % (0.0-0.4); Lymphocytes Absolute Auto 0.9 X10*3/uL (1.2-4.9); Lymphocytes Percent Auto 5.9 % (20-40); Mean Corpuscular Hemoglobin 27.5 pg (27.0-33.0); Mean Platelet Volume 9.1 fL (9.4-12.3); Monocytes Absolute Auto 1.1 X10*3/uL (0.1-1.2); Monocytes Percent Auto 7.2 % (2-11); Neutrophils Absolute Auto 12.5 x10*3/uL (2.0-8.3); Neutrophils Percent Auto 84.5 % (45-73); Platelet Count 251 X10*3/uL (160-400); Red Blood Count 3.85 X10*6/uL (4.20-5.50); Red Cell Distribution Width 13.2 % (11.0-16.0); White Blood Count 14.8 X10*3/uL (4.8-10.8)
[2022-09-20 19:11] LABS: COVID-19 Test Negative (Negative); IDNOW Serial# 6674DD1D
[2022-09-20 19:18] LABS: Alanine Aminotransferase 10 U/L (0-31); Albumin Level 3.5 g/dL (3.5-5.0); Alkaline Phosphatase 66 U/L (39-117); Anion Gap 17 (12-20); Aspartate Amino Transferase 15 U/L (5-31); Bilirubin Total 0.4 mg/dL (0.0-1.0); Blood Urea Nitrogen 123 mg/dL (9-16); Calcium 8.1 mg/dL (8.4-10.2); Carbon Dioxide 23 mmol/L (22-29); Chloride 100 mmol/L (96-108); Creatinine Clr Calc Pharmacy 36.6; Estimated Glomerular Filt Rate 21; Glucose Random 327 mg/dL (60-115); Potassium 4.7 mmol/L (3.3-5.1); Sodium 135 mmol/L (135-145); Total Protein 6.2 g/dL (6.5-8.0)
[2022-09-20 19:55] VITALS: BP 141/76; PULSE 82; RESP 20
--- NOTE | 2022-09-20 21:30 | ED_ITS ---
HPI - Extremity Injury (Lower) General Chief Complaint: Extremity Injury, Lower Stated Complaint: leg pain Time Seen by Provider: 09/20/22 17:44 Source: patient Mode of arrival: EMS Limitations: no limitations History of Present Illness HPI Narrative: 62-year-old female who presents emergency department for evaluation of lower extremity pain, edema and inability to walk. The patient was hospitalized from 09/08/2022 until 09/16/2022 ( discharge 5 days prior). She was hospitalized for difficulty ambulating, left hip pain and lower back pain X2 weeks. During her hospitalization she had extensive testing with a conclusion that she had intractable left hip pain due to left lumbar radiculopathy which was chronic. She was treated with Dilaudid IV, oxycodone and steroids, which did not seem to help her pain or improve her difficulty with ambulating. The patient told me that when she was discharged, she still was having difficulty walking. She states that since she has been at home, she has not been able to get out of her chair. She does have HEALTH AND SAFETY MANAGER care in the morning and a visiting nurse that gives her her medications but she states that she is having difficulty caring for herself at home. She states that her legs are always swollen and they have gotten worse, she states that her weakness is got worse and she is again not able to walk. Related Data Home Medications Medication Instructions Recorded Confirmed albuterol sulfate 90 mcg/actuation 2 puff inhalation Q4H PRN Dyspnea 11/23/20 09/08/22 aerosol inhaler (ProAir HFA) aspirin 81 mg tablet,delayed 81 mg PO DAILY 11/23/20 09/08/22 release fluoxetine 40 mg capsule 40 mg PO DAILY 11/23/20 09/08/22 fluticasone propionate 110 2 puff inhalation BID 11/23/20 09/08/22 mcg/actuation HFA aerosol inhaler (Flovent HFA) metoprolol succinate 50 mg 50 mg PO DAILY 11/23/20 09/08/22 tablet,extended release 24 hr simvastatin 20 mg tablet 20 mg PO BEDTIME 11/23/20 09/08/22 isosorbide mononitrate 30 mg 30 mg PO DAILY 12/11/20 09/08/22 tablet,extended release 24 hr tizanidine 4 mg tablet 4 mg PO BEDTIME 12/11/20 09/08/22 amlodipine 10 mg tablet 1 tab PO DAILY 06/07/21 09/08/22 bumetanide 2 mg tablet 1 tab PO DAILY 06/07/21 09/08/22 cholecalciferol (vitamin D3) 25 1 cap PO DAILY 06/07/21 09/08/22 mcg (1,000 unit) capsule meclizine 25 mg tablet 25 mg PO TID PRN Dizziness 06/07/21 09/08/22 risperidone 1 mg tablet 1 tab PO BID 04/20/22 09/08/22 blood sugar diagnostic (FreeStyle #10 ea 06/25/22 06/25/22 Lite Strips) insulin syringe-needle U-100 1 mL #10 ea 06/25/22 06/25/22 31 gauge x 5/16 (BD Insulin Syringe Ultra-Fine) lancets 28 gauge (FreeStyle #100 ea 06/25/22 06/25/22 Lancets) clotrimazole 1 % topical cream 1 appl topical BID 09/08/22 09/08/22 gabapentin 400 mg capsule 400 mg PO TID 09/08/22 09/08/22 insulin glargine 100 unit/mL 50 unit subcut BID 09/08/22 09/08/22 subcutaneous solution (Lantus U-100 Insulin) nystatin 100,000 unit/gram topical 1 appl topical BID 09/08/22 09/08/22 powder silver sulfadiazine 1 % topical 1 appl topical BID 09/08/22 09/08/22 cream Previous Rx's Medication Instructions Recorded insulin lispro 100 unit/mL See Protocol subcut QIDACHS #1 mL 01/16/21 subcutaneous solution (Humalog U-100 Insulin) clonidine HCl 0.1 mg tablet 0.1 mg PO TID PRN hyperarousal, 04/01/22 anxiety, panic #90 tabs bumetanide 1 mg tablet 1 mg PO BEDTIME #30 tabs 04/08/22 hydralazine 25 mg tablet 25 mg PO BID #60 tabs 04/08/22 spironolactone 25 mg tablet 25 mg PO DAILY #30 tabs 04/08/22 docusate sodium 100 mg capsule 100 mg PO DAILY PRN Constipation 04/26/22 #30 caps blood-glucose meter (FreeStyle #1 ea 09/02/22 Lite Meter kit) amlodipine 5 mg tablet 5 mg PO DAILY #30 tabs 09/16/22 oxycodone 5 mg tablet 5 mg PO Q6H PRN Pain, Moderate 09/16/22 (Pain Scale 4-6 #12 tabs Allergies Allergy/AdvReac Type Severity Reaction Status Date / Time ibuprofen Allergy Intermediate vommiting, Verified 06/25/22 10:50 itching acetaminophen [Tylenol] Allergy Mild Unknown Verified 06/25/22 10:50 morphine AdvReac Intermediate vomiting Verified 06/25/22 10:50 Review of Systems Review of Systems: Yes all other systems are reviewed and are negative [facility] Past Medical History Medical History Abdominal pain Acute on chronic combined systolic and diastolic CHF (congestive heart failure) Adjustment disorder with mixed anxiety and depressed mood FELICIA (acute kidney injury) Asthma Cellulitis of right lower extremity CHF exacerbation Chronic pain Chronic respiratory failure with hypoxia CKD (chronic kidney disease) stage 3, GFR 30-59 ml/min Congestive heart failure Constipation COPD (chronic obstructive pulmonary disease) Decubitus ulcer Depression Diabetes Diabetic neuropathy, painful High cholesterol Hyperglycemia due to diabetes mellitus Hypertension Hypoxia MDD (major depressive disorder), recurrent episode, moderate Morbid obesity NICM (nonischemic cardiomyopathy) Obesity hypoventilation syndrome DANIEL (obstructive sleep apnea) Panic disorder Stasis dermatitis of both legs Stercoral colitis Uncontrolled type 2 diabetes mellitus with hyperglycemia Surgical History Hx of cholecystectomy Family History Family History Mother HTN (hypertension) Diabetes CAD (coronary artery disease) Father HTN (hypertension) Diabetes CAD (coronary artery disease) Maternal Grandmother CAD (coronary artery disease) Social History Social History Household Members: None Household Members Other:: GRANDSON Housing: Apartment Housing Other:: with equipment monitor phototypesetting Do you presently have visiting nurse or other home services: Yes Alcohol intake: unknown Patient Tobacco Use Status: Former Tobacco user Quit Date: 1999 Tobacco use type: Cigarette Years Smoked: 38 Second Hand Smoke Exposure: No Substance Use Type: Marijuana Advance Directives: Yes Advance Directives on File: Yes Advance Directives Date on File: 12/19/20 service: No Current occupational status: disabled Physical Exam Vital Signs: Vital Signs: Last Vital Signs Temp 98.9 F 09/20/22 22:19 Pulse 81 09/21/22 00:13 Resp 17 09/21/22 00:13 BP 136/56 L 09/21/22 00:13 Pulse Ox 95 09/21/22 00:13 O2 Del Method 09/21/22 00:13 BMI result Body Mass Index 49.2 vital signs reviewed, they are normal General: Awake, alert, female patient, she does not appear to be in distress, she is cooperative, she answers all questions appropriately. Elevated BMI 49.2. HEENT: Head is normal cephalic and atraumatic, pupils were equal round reactive light, sclera contact however normal, mouth revealed moist membranes Neck: Supple with no adenopathy Lungs: Clear to auscultation, breath sounds symmetric bilaterally Abdomen: Obese, soft, nontender, nondistended, normoactive bowel sounds Extremities: Patient does have nonpitting edema which is symmetric. Neuro: Cranial nerves 2-12 are intact, the patient's upper extremity strength is normal. Patient cannot lift her lower extremities up against gravity and cannot move her lower extremities from side to side. Medications Administered Discontinued Medications Generic Name Dose Route Start Last Admin Trade Name Freq PRN Reason Stop Dose Admin Lactated Ringer's 1,000 mls @ 999 mls/hr 09/20/22 23:15 09/21/22 00:37 Lr IV 09/21/22 00:15 Infused .Q1H1M HI Infusion Lactated Ringer's 1,000 mls @ 999 mls/hr 09/20/22 23:15 09/21/22 02:22 Lr IV 09/21/22 00:15 Infused .Q1H1M HI Infusion Medical Decision Making Medical Decision Making MDM Narrative: 62-year-old female with extensive past medical history who presents emergency department for evaluation of inability to walk, left hip pain, lower extremity pain and lower extremity swelling. Patient was recently hospitalized from 09/08/2022 until 09/16/2022 (disharged 5 days prior) with similar presentation with an extensive workup the concluded she has intractable left hip pain due to left lumbar radiculopathy which was chronic. the patient's examination did reveal bilaterally symmetric lower extremity weakness. at this time, I do not think that the patient can care for herself, given her recent hospitalization, I will place the patient in physician observation and I ordered a case management consult in physical therapy consult to determine if this patient can be placed and a rehab/long term facility. 2321: Laboratory evaluation interpretation is as follows: Elevated WBC 97299, anemia with an H&H of 10.6 and 33.1-this is chronic. BUN and creatinine are elevated BUN and creatinine are elevated 123 and 2.31 with a GFR of 36 -this is elevated above her baseline. COVID-19 was negative. Given the patient's elevated BUN creatinine above her baseline, I do believe that she is volume depleted therefore I ordered lactated Ringer's times 2 L and I will repeat the patient's BUN and creatinine after the fluid bolus. 0224: The patient completed her 2 L fluid, I did order repeat BMP. The patient's BUN and creatinine improve then the patient can be kept in physician observation for long term facility placement otherwise the patient may need to be admitted for further evaluation of her acute kidney injury. At the end of my shift, patient's care was turned over my colleague, Dr. Chelsy Carlin. Lab Data 09/20/22 18:53 09/20/22 18:53 Labs: Lab Results 09/20/22 09/20/22 09/20/22 Range/Units 18:53 18:53 18:53 WBC 14.8 H (4.8-10.8) X10*3/uL RBC 3.85 L (4.20-5.50) X10*6/uL Hgb 10.6 L (12.0-16.0) g/dl Hct 33.1 L (37.0-47.0) % MCV 86.0 (80.0-98.0) fL MCH 27.5 (27.0-33.0) pg MCHC 32.0 (31.0-35.0) g/dl RDW 13.2 (11.0-16.0) % Plt Count 251 D (160-400) X10*3/uL MPV 9.1 L (9.4-12.3) fL Immature Gran % (Auto) 1.1 H (0.0-0.4) % Neut % (Auto) 84.5 H (45-73) % Lymph % (Auto) 5.9 L (20-40) % [place] % (Auto) 7.2 (2-11) % Eos % (Auto) 1.2 (0-4) % Baso % (Auto) 0.1 (0-2) % Lymph # (Auto) 0.9 L (1.2-4.9) X10*3/uL [place] # (Auto) 1.1 (0.1-1.2) X10*3/uL Eos # (Auto) 0.2 (0.0-0.4) X10*3/uL Baso # (Auto) 0.0 (0.0-0.2) X10*3/uL Abs Immat Gran (auto) 0.16 H (0.00-0.03) X10*3/uL Absolute Neuts (auto) 12.5 H (2.0-8.3) x10*3/uL Absolute Nucleated RBC 0.000 (0.0-0.012) X10*3/uL Nucleated RBC % (auto) 0.0 (0.0-0.2) /100WBC Sodium 135 (135-145) mmol/L Potassium 4.7 (3.3-5.1) mmol/L Chloride 100 (96-108) mmol/L Carbon Dioxide 23 (22-29) mmol/L Anion Gap 17 (12-20) BUN 123 H (9-16) mg/dL Creatinine 2.31 H (0.5-1.4) mg/dL Estim Creat Clear Calc 36.6 Estimated GFR 21 Random Glucose 327 H (60-115) mg/dL Calcium 8.1 L (8.4-10.2) mg/dL Total Bilirubin 0.4 (0.0-1.0) mg/dL AST 15 (5-31) U/L ALT 10 (0-31) U/L Alkaline Phosphatase 66 (39-117) U/L Total Protein 6.2 L (6.5-8.0) g/dL Albumin 3.5 (3.5-5.0) g/dL COVID-19 ([facility]) Negative (Negative) COVID-19 Clin Com See Note Discharge Plan Discharge Clinical Impression: Unable to ambulate, Acute kidney injury, Bilateral leg weakness Prescriptions: No Action (DME) blood-glucose meter [FreeStyle Lite Meter] Kit See Rx Instructions .Route Qty: 1 0RF Rx Instructions: As directed checks POC 4 X/day insulin lispro [Humalog U-100 Insulin] 100 unit/mL Solution See Protocol subcut QIROBERTCatracho Qty: 1 0RF Protocol: Insulin Correction Scale Less than or equal to 110 ---- Give (units): 0 111 to 150 Give (units): 0 151 to 200 Give (units): 2 201 to 250 Give (units): 4 251 to 300 Give (units): 6 301 to 350 Give (units): 8 Greater than 350 Give (units): 10 Call MD if Blood Glucose > : 350 Rx Instructions: sliding scale fluoxetine 40 mg capsule 40 mg PO DAILY metoprolol succinate 50 mg tablet extended release 24 hr 50 mg PO DAILY aspirin 81 mg tablet,delayed release (DR/EC) 81 mg PO DAILY simvastatin 20 mg tablet 20 mg PO BEDTIME albuterol sulfate [ProAir HFA] 90 mcg/actuation HFA aerosol inhaler 2 puff inhalation Q4H PRN (Reason: Dyspnea) fluticasone propionate [Flovent HFA] 110 mcg/actuation HFA aerosol inhaler 2 puff inhalation BID tizanidine 4 mg Tablet 4 mg PO BEDTIME isosorbide mononitrate 30 mg Tablet Extended Release 24 Hr 30 mg PO DAILY bumetanide 2 mg tablet 1 tab PO DAILY amlodipine 10 mg tablet 1 tab PO DAILY cholecalciferol (vitamin D3) 25 mcg (1,000 unit) capsule 1 cap PO DAILY meclizine 25 mg Tablet 25 mg PO TID PRN (Reason: Dizziness) docusate sodium 100 mg Capsule 100 mg PO DAILY PRN (Reason: Constipation) Qty: 30 0RF silver sulfadiazine 1 % Cream 1 appl TOPICAL BID Rx Instructions: apply a 1.5 mm thickness, to buttock wounds gabapentin 400 mg Capsule 400 mg PO TID nystatin 100,000 unit/gram Powder 1 appl TOPICAL BID Protocol: Apply to: Apply to: AFFECTED AREA insulin glargine [Lantus U-100 Insulin] 100 unit/mL solution 50 unit subcut BID clotrimazole 1 % Cream 1 appl TOPICAL BID Protocol: Apply to: Apply to: AFFECTED AREA amlodipine 5 mg Tablet 5 mg PO DAILY Qty: 30 0RF Protocol: Hold for SBP< HOLD for SBP < : 90 oxycodone 5 mg Tablet 5 mg PO Q6H PRN (Reason: Pain, Moderate (Pain Scale 4-6) Qty: 12 0RF Rx Instructions: Partial Fill upon patient request. clonidine HCl 0.1 mg Tablet 0.1 mg PO TID PRN (Reason: hyperarousal, anxiety, panic) Qty: 90 0RF Protocol: Hold for SBP< HOLD for SBP < : 90 hydralazine 25 mg Tablet 25 mg PO BID Qty: 60 0RF Protocol: Hold for SBP< HOLD for SBP < : 90 spironolactone 25 mg Tablet 25 mg PO DAILY Qty: 30 0RF Protocol: Hold for SBP< HOLD for SBP < : 90 bumetanide 1 mg Tablet 1 mg PO BEDTIME Qty: 30 0RF Protocol: Hold for SBP< HOLD for SBP < : 90 risperidone 1 mg tablet 1 tab PO BID (DME) FreeStyle Lite Strips Strip See Rx Instructions .ROUTE BID Qty: 10 Rx Instructions: As directed (DME) lancets [FreeStyle Lancets] 28 gauge misc See Rx Instructions .ROUTE QID Qty: 100 Rx Instructions: As directed (DME) insulin syringe-needle U-100 [BD Insulin Syringe Ultra-Fine] 1 mL 31 gauge x 5/16 syringe See Rx Instructions .ROUTE QID Qty: 10 Rx Instructions: As directed
--- NOTE | 2022-09-20 22:00 | PC.NURSE ---
Pt A&Ox3, reports all over chronic body pain. Pt incontinent of urine, incontinent care provided. Pt buttocks area excoriated, red, with small open area, small amount of blood noted, barrier cream applied, Pt repositioned.
[2022-09-20 22:19] VITALS: BP 144/57; PULSE 85; TEMP 37.2; O2SAT 97
[2022-09-20] MEDS: Lactated Ringers 1,000 ML 999 ML IV (23:35)
[2022-09-21] VITALS (9 sets, daily range): BP systolic 119–178; BP diastolic 36–68; PULSE 68–81; RESP 15–20; TEMP 37.1–37.5; O2SAT 93–97
--- NOTE | 2022-09-21 00:13 | MHC.EDTECH ---
PT placed on a Purwick per RN order
[2022-09-21] MEDS: Lactated Ringers 1,000 ML 999 ML IV (00:37)
[2022-09-21 02:55] LABS: Appearance Urine Clear; Color Urine Yellow; Glucose Urine UA Negative (Negative); Leukocyte Esterase Urine Negative (Negative); Nitrite Urine Negative (Negative); Urine Blood Negative (Negative); Urine Ketones Negative (Negative); Urine Protein Negative (Neg-Trace)
[2022-09-21 02:59] LABS: Anion Gap 17 (12-20); Blood Urea Nitrogen 113 mg/dL (9-16); Carbon Dioxide 24 mmol/L (22-29); Chloride 104 mmol/L (96-108); Creatinine Clr Calc Pharmacy 45.6; Estimated Glomerular Filt Rate 28; Glucose Random 264 mg/dL (60-115); Potassium 4.5 mmol/L (3.3-5.1); Sodium 140 mmol/L (135-145)
--- NOTE | 2022-09-21 07:29 | PC.NURSE ---
pt is a/o x 4 no sob/cheryl noted speaks in full sentences. lungs - diminished. heart sounds regular. abd obese, soft and non-tender, bs + x 4 quads. estelita lower ext 3-4+ pitting edema. noted. 8/10 general body pain with palpitation or any form of movement. pt aware of plan of care.
--- NOTE | 2022-09-21 07:44 | MHC.EDTECH ---
Patient found to be wet when this tech came in to round and do vitals. Fresh linen and underpads placed on stretcher, Pts hospital gown was clean/dry. Pt cleaned up and repositioned from being on her right side to her back and given a clean blanket. Pt has a purewick in place. Call lopez given to Pt and instructed to use if she needs anything.
[2022-09-21 07:55] LABS: Glucose, Whole Blood 216 mg/dL (60-115)
--- NOTE | 2022-09-21 08:27 | MHC.EDTECH ---
Pt transferred over into hospital bed with the help of transporter and clinical trials specialist (Jesus). Pt repositioned and head of bed elevated. Call lopez given to Pt
--- NOTE | 2022-09-21 08:46 | PHA.MEDREC ---
Pharmacy Consult ? Medication Reconciliation Pharmacy has completed the medication reconciliation. Patient just discharged 09/16/22. Patient discharged with amlodipine 5 mg, which is what she was on while admitted. Gisella Roque, JosefD
--- NOTE | 2022-09-21 09:02 | PC.NURSE ---
pt buttocks is red and excorated with areas of stage 2 openings with a darken area at the distal end. mlp area to order a new ointment/cream for buttocks.
[2022-09-21] MEDS: Insulin Glargine,Hum.rec.anlog 100 UNIT/ML 10 ML VIAL 50 UNIT SUBCUT (09:17)
[2022-09-21] MEDS: oxyCODONE HCl Immed Release 5 MG TABLET PO ×2 (09:18→19:47)
[2022-09-21] MEDS: Cholecalciferol (Vitamin D3) 25 MCG TABLET PO (09:18)
[2022-09-21] MEDS: amLODIPine Besylate 5 MG TABLET PO (09:18)
[2022-09-21] MEDS: cloNIDine HCL 0.1 MG TABLET PO (09:19)
[2022-09-21] MEDS: Isosorbide Mononitrate 30 MG TAB.ER.24H PO (09:19)
[2022-09-21] MEDS: Aspirin Enteric Coated 81 MG TABLET.DR PO (09:19)
[2022-09-21] MEDS: FLUoxetine HCl 20 MG CAPSULE 40 MG PO (09:19)
[2022-09-21] MEDS: Gabapentin 400 MG CAPSULE PO ×2 (09:19→13:57)
[2022-09-21] MEDS: Metoprolol Succinate ER 50 MG TAB.ER.24H PO (09:19)
[2022-09-21] MEDS: Docusate Sodium 100 MG CAPSULE PO (09:20)
[2022-09-21] MEDS: Spironolactone 25 MG TABLET PO (09:20)
[2022-09-21] MEDS: hydrALAZINE HCl 25 MG TABLET PO (09:20)
[2022-09-21] MEDS: Bumetanide 1 MG TABLET 2 MG PO (09:23)
[2022-09-21] MEDS: risperiDONE 1 MG TABLET PO (09:57)
[2022-09-21] MEDS: Nystatin Powder 15 GM BOTTLE 1 APPL TOPICAL (10:12)
[2022-09-21 10:46] LABS: Appearance Urine Clear; Color Urine Yellow; Glucose Urine UA Negative (Negative); Leukocyte Esterase Urine Negative (Negative); Nitrite Urine Negative (Negative); Specific Gravity - Urine 1.015 (1.005-1.025); Urine Blood Negative (Negative); Urine Ketones Negative (Negative); Urine Protein Negative (Neg-Trace)
[2022-09-21 10:49] LABS: Bacteria Urine None Seen (None Seen); Hyaline Casts Urine 0-2 /LPF (0-2); RBC Urine 0-2 /HPF (0-2); Squamous Epithelial Cell Urine 0-2 /HPF (0-2); WBC Urine 0-5 /HPF (0-5)
[2022-09-21] MEDS: Zinc Oxide 20% Ointment 28.35 GM TUBE 1 APPL TOPICAL (11:48)
[2022-09-21 13:50] LABS: Glucose, Whole Blood 218 mg/dL (60-115)
--- NOTE | 2022-09-21 13:53 | MHC.EDTECH ---
Pt reported to me that she urinated and needed to be changed. Pts underpads changed and Pt cleaned up, RN placed cream on buttocks. Pt boosted and repositioned, sitting up to eat lunch.
[2022-09-21] MEDS: Insulin Lispro 100 UNIT/ML 3 ML VIAL SUBCUT ×2 (13:57→19:45)
--- NOTE | 2022-09-21 14:50 | MHC.EDTECH ---
Pt reported to me that she was wet. Pt taken off bedpan and cleaned up. Pt put in clean hospital gown and dry underpads placed on bed with help of KELLY Hoang. Pt repositioned.
[2022-09-21 19:42] LABS: Glucose, Whole Blood 210 mg/dL (60-115)
[2022-09-22] VITALS (7 sets, daily range): BP systolic 121–146; BP diastolic 40–64; PULSE 69–80; RESP 14–20; TEMP 36.6–37.3; O2SAT 94–97
[2022-09-22] MEDS: Insulin Glargine,Hum.rec.anlog 100 UNIT/ML 10 ML VIAL 50 UNIT SUBCUT ×3 (00:33→21:12)
[2022-09-22] MEDS: hydrALAZINE HCl 25 MG TABLET PO ×3 (00:34→21:03)
[2022-09-22] MEDS: TiZANidine HCL 4 MG TABLET PO ×2 (00:34→21:04)
[2022-09-22] MEDS: Bumetanide 1 MG TABLET PO ×2 (00:35→21:04)
[2022-09-22] MEDS: Atorvastatin Calcium 10 MG TABLET PO ×2 (00:35→21:04)
[2022-09-22] MEDS: Gabapentin 400 MG CAPSULE PO ×4 (00:35→21:04)
--- NOTE | 2022-09-22 00:36 | PC.NURSE ---
linens changed, pt cleaned and repositioned
--- NOTE | 2022-09-22 00:37 | PC.NURSE ---
BP 131/51 L upper arm, semi-jerez's
[2022-09-22] MEDS: Clotrimazole 1 % Cream 15 GM TUBE 1 APPL TOPICAL ×3 (00:44→21:14)
[2022-09-22] MEDS: Nystatin Powder 15 GM BOTTLE 1 APPL TOPICAL ×3 (00:44→21:14)
[2022-09-22] MEDS: Silver Sulfadiazine 1 % Cream 20 GM TUBE 1 APPL TOPICAL ×3 (00:45→21:07)
[2022-09-22] MEDS: Zinc Oxide 20% Ointment 28.35 GM TUBE 1 APPL TOPICAL ×4 (00:45→21:07)
[2022-09-22 01:23] LABS: Glucose, Whole Blood 214 mg/dL (60-115)
[2022-09-22] MEDS: Insulin Lispro 100 UNIT/ML 3 ML VIAL SUBCUT ×3 (02:25→21:13)
[2022-09-22] MEDS: risperiDONE 1 MG TABLET PO ×3 (02:26→21:04)
--- NOTE | 2022-09-22 07:06 | PC.NURSE ---
med rec complete prior to this nurse assuming care of pt
[2022-09-22 07:41] LABS: Glucose, Whole Blood 130 mg/dL (60-115)
[2022-09-22] MEDS: Bumetanide 1 MG TABLET 2 MG PO (07:55)
[2022-09-22] MEDS: Isosorbide Mononitrate 30 MG TAB.ER.24H PO (07:56)
[2022-09-22] MEDS: Cholecalciferol (Vitamin D3) 25 MCG TABLET PO (07:56)
[2022-09-22] MEDS: Aspirin Enteric Coated 81 MG TABLET.DR PO (07:56)
[2022-09-22] MEDS: Docusate Sodium 100 MG CAPSULE PO (07:56)
[2022-09-22] MEDS: amLODIPine Besylate 5 MG TABLET PO (07:57)
[2022-09-22] MEDS: Metoprolol Succinate ER 50 MG TAB.ER.24H PO (07:57)
[2022-09-22] MEDS: Spironolactone 25 MG TABLET PO (07:57)
[2022-09-22] MEDS: FLUoxetine HCl 20 MG CAPSULE 40 MG PO (07:57)
--- NOTE | 2022-09-22 08:10 | PC.NURSE ---
pt ate breakfast, states no bm x 2 days, colace given, pt states she is unable to press the button to raise the head of her bed, i did this for her, also stated that her pitcher of water was too heavy but with some encouragement was able to do it, warm blanket provided, nad
--- NOTE | 2022-09-22 10:00 | HO.WOUNDCONS ---
History of Present Illness Data of Consult Service Date: 09/22/22 Requesting physician: Azucena Henley Primary Care Provider: Tavo Huber MD HPI Reason for consult: buttock ulcers [id number]: Patient well known to wound care clinic and was doing well with her walker until about 2 months ago when it became harder for her to ambulate. She has been unable to get into the clinic for this reason. She called us Thursday afternoon with the inability to get out of bed and she was counseled to seek hospital care once her LIQUID CENTER ASSEMBLER arrived. Today she is worried about her mobility and does not look to be admitted. She tells me they are looking for placement . She has chronic urinary incontinence and wears adult garments at home for this reason. Review of Systems Review of Systems: No fever, chest pain or SOB. Leg pain is not new. Urinary incontinence is not new. Difficulty caring for self is not new. No numbness or tingling in the groin. [facility] Medical History Abdominal pain Acute on chronic combined systolic and diastolic CHF (congestive heart failure) Adjustment disorder with mixed anxiety and depressed mood FELICIA (acute kidney injury) Asthma Cellulitis of right lower extremity CHF exacerbation Chronic pain Chronic respiratory failure with hypoxia CKD (chronic kidney disease) stage 3, GFR 30-59 ml/min Congestive heart failure Constipation COPD (chronic obstructive pulmonary disease) Decubitus ulcer Depression Diabetes Diabetic neuropathy, painful High cholesterol Hyperglycemia due to diabetes mellitus Hypertension Hypoxia MDD (major depressive disorder), recurrent episode, moderate Morbid obesity NICM (nonischemic cardiomyopathy) Obesity hypoventilation syndrome DANIEL (obstructive sleep apnea) Panic disorder Stasis dermatitis of both legs Stercoral colitis Uncontrolled type 2 diabetes mellitus with hyperglycemia Family History Mother HTN (hypertension) Diabetes CAD (coronary artery disease) Father HTN (hypertension) Diabetes CAD (coronary artery disease) Maternal Grandmother CAD (coronary artery disease) Surgical History Hx of cholecystectomy Social History Household Members: None Household Members Other:: GRANDSON Housing: Apartment Housing Other:: with benefits coordinator Do you presently have visiting nurse or other home services: Yes Alcohol intake: unknown Patient Tobacco Use Status: Former Tobacco user Quit Date: 1999 Tobacco use type: Cigarette Years Smoked: 38 Second Hand Smoke Exposure: No Substance Use Type: Marijuana Advance Directives: Yes Advance Directives on File: Yes Advance Directives Date on File: 12/19/20 service: No Current occupational status: disabled Meds Allergies Allergy/AdvReac Type Severity Reaction Status Date / Time ibuprofen Allergy Intermediate vommiting, Verified 06/25/22 10:50 itching acetaminophen [Tylenol] Allergy Mild Unknown Verified 06/25/22 10:50 morphine AdvReac Intermediate vomiting Verified 06/25/22 10:50 Active Medications: Current Medications Albuterol Sulfate (Albuterol Sulfate 90 Mcg 8 Gm Inhaler) 2 puff INHALE Q4H PRN PRN Reason: Dyspnea Amlodipine Besylate (Amlodipine Besylate 5 Mg Tablet) 5 mg PO DAILY HI; Protocol Last Admin: 09/22/22 07:57 Dose: 5 mg Aspirin (Aspirin Enteric Coated 81 Mg Tablet.) 81 mg PO DAILY HI Last Admin: 09/22/22 07:56 Dose: 81 mg Atorvastatin Calcium (Atorvastatin Calcium 10 Mg Tablet) 10 mg PO BEDTIME HI Last Admin: 09/22/22 00:35 Dose: 10 mg Bumetanide (Bumetanide 1 Mg Tablet) 1 mg PO BEDTIME HI; Protocol Last Admin: 09/22/22 00:35 Dose: 1 mg Bumetanide (Bumetanide 1 Mg Tablet) 2 mg PO DAILY HI; Protocol Last Admin: 09/22/22 07:55 Dose: 2 mg Clonidine HCl (Clonidine Hcl 0.1 Mg Tablet) 0.1 mg PO TID PRN; Protocol PRN Reason: hyperarousal, anxiety, panic Last Admin: 09/21/22 09:19 Dose: 0.1 mg Clotrimazole (Clotrimazole 1 % Cream 15 Gm Tube) 1 appl TOPICAL BID HI; Protocol Last Admin: 09/22/22 07:57 Dose: 1 appl Docusate Sodium (Docusate Sodium 100 Mg Capsule) 100 mg PO DAILY PRN PRN Reason: Constipation Last Admin: 09/22/22 07:56 Dose: 100 mg Fluoxetine HCl (Fluoxetine Hcl 20 Mg Capsule) 40 mg PO DAILY HI Last Admin: 09/22/22 07:57 Dose: 40 mg Fluticasone Propionate (Fluticasone Propionate 100 Mcg Blst.W.Dev) 2 puff INHALE RBID [facility] Last Admin: 09/22/22 07:37 Dose: Not Given Gabapentin (Gabapentin 400 Mg Capsule) 400 mg PO TID [facility] Last Admin: 09/22/22 07:55 Dose: 400 mg Hydralazine HCl (Hydralazine Hcl 25 Mg Tablet) 25 mg PO BID [facility]; Protocol Last Admin: 09/22/22 07:57 Dose: 25 mg Insulin Glargine (Insulin Glargine,Hum.Rec.Anlog 100 Unit/Ml 10 Ml Vial) 50 unit SUBCUT BID [facility] Last Admin: 09/22/22 07:58 Dose: 50 unit Insulin Human Lispro (Insulin Lispro 100 Unit/Ml 3 Ml Vial) 0 unit SUBCUT QIDACHS [facility]; Protocol Last Admin: 09/22/22 07:58 Dose: Not Given Isosorbide Mononitrate (Isosorbide Mononitrate 30 Mg Tab.Er.24h) 30 mg PO DAILY [facility]; Protocol Last Admin: 09/22/22 07:56 Dose: 30 mg Meclizine HCl (Meclizine Hcl 25 Mg Tablet) 25 mg PO TID PRN PRN Reason: Dizziness Metoprolol Succinate (Metoprolol Succinate Er 50 Mg Tab.Er.24h) 50 mg PO DAILY [facility]; Protocol Last Admin: 09/22/22 07:57 Dose: 50 mg Nystatin (Nystatin Powder 15 Gm Bottle) 1 appl TOPICAL BID [facility]; Protocol Last Admin: 09/22/22 08:03 Dose: 1 appl Oxycodone HCl (Oxycodone Hcl Immed Release 5 Mg Tablet) 5 mg PO Q6H PRN PRN Reason: Pain, Moderate (Pain Scale 4-6 Last Admin: 09/21/22 19:47 Dose: 5 mg Pharmacy Consult (Consult Rx Perform Med Rec) 1 each MISCELLANE ONCE PRN PRN Reason: Consult order Risperidone (Risperidone 1 Mg Tablet) 1 mg PO BID [facility] Last Admin: 09/22/22 08:02 Dose: 1 mg Silver Sulfadiazine (Silver Sulfadiazine 1 % Cream 20 Gm Tube) 1 appl TOPICAL BID [facility] Last Admin: 09/22/22 07:58 Dose: 1 appl Spironolactone (Spironolactone 25 Mg Tablet) 25 mg PO DAILY [facility]; Protocol Last Admin: 09/22/22 07:57 Dose: 25 mg Tizanidine HCl (Tizanidine Hcl 4 Mg Tablet) 4 mg PO BEDTIME [facility] Last Admin: 09/22/22 00:34 Dose: 4 mg Vitamin D (Cholecalciferol (Vitamin D3) 25 Mcg Tablet) 25 mcg PO DAILY [facility] Last Admin: 09/22/22 07:56 Dose: 25 mcg Zinc Oxide (Zinc Oxide 20% Ointment 28.35 Gm Tube) 1 appl TOPICAL QID [facility]; Protocol Last Admin: 09/22/22 07:58 Dose: 1 appl Home Medications Medication Instructions Recorded Confirmed Last Taken Type albuterol sulfate 90 mcg/actuation 2 puff inhalation Q4H PRN Dyspnea 11/23/20 09/21/22 1 Day Ago History aerosol inhaler (ProAir HFA) ~03/31/21 aspirin 81 mg tablet,delayed 81 mg PO DAILY 11/23/20 09/21/22 09/08/22 History release fluoxetine 40 mg capsule 40 mg PO DAILY 11/23/20 09/21/22 09/08/22 History fluticasone propionate 110 2 puff inhalation BID 11/23/20 09/21/22 09/08/22 History mcg/actuation HFA aerosol inhaler (Flovent HFA) metoprolol succinate 50 mg 50 mg PO DAILY 11/23/20 09/21/22 09/08/22 History tablet,extended release 24 hr simvastatin 20 mg tablet 20 mg PO BEDTIME 11/23/20 09/21/22 09/07/22 History isosorbide mononitrate 30 mg 30 mg PO DAILY 12/11/20 09/21/22 09/08/22 History tablet,extended release 24 hr tizanidine 4 mg tablet 4 mg PO BEDTIME 12/11/20 09/21/22 09/07/22 History bumetanide 2 mg tablet 1 tab PO DAILY 06/07/21 09/21/22 09/08/22 History cholecalciferol (vitamin D3) 25 1 cap PO DAILY 06/07/21 09/21/22 09/08/22 History mcg (1,000 unit) capsule meclizine 25 mg tablet 25 mg PO TID PRN Dizziness 06/07/21 09/21/22 Unknown History risperidone 1 mg tablet 1 tab PO BID 04/20/22 09/21/22 09/08/22 History blood sugar diagnostic (FreeStyle #10 ea 06/25/22 06/25/22 Unknown History Lite Strips) insulin syringe-needle U-100 1 mL #10 ea 06/25/22 06/25/22 Unknown History 31 gauge x 5/16 (BD Insulin Syringe Ultra-Fine) lancets 28 gauge (FreeStyle #100 ea 06/25/22 06/25/22 Unknown History Lancets) clotrimazole 1 % topical cream 1 appl topical BID 09/08/22 09/21/22 Unknown History gabapentin 400 mg capsule 400 mg PO TID 09/08/22 09/21/22 09/08/22 History insulin glargine 100 unit/mL 50 unit subcut BID 09/08/22 09/21/22 09/08/22 History subcutaneous solution (Lantus U-100 Insulin) nystatin 100,000 unit/gram topical 1 appl topical BID 09/08/22 09/21/22 Unknown History powder silver sulfadiazine 1 % topical 1 appl topical BID 09/08/22 09/21/22 09/08/22 History cream Physical Exam Vital Signs and Narrative: Vital Signs: Last Vital Signs Temp 99.1 F 09/22/22 07:12 Pulse 75 09/22/22 07:12 Resp 16 09/22/22 07:12 BP 126/53 L 09/22/22 07:12 Pulse Ox 96 09/22/22 07:12 O2 Del Method 09/22/22 07:12 BMI result Body Mass Index 49.2 Requires assistance to get onto her left side. Adequate blanching as usual, sitting on a wet cintia and incontinent of pastey stool. Open ulcers are from moisture associated dermatitis. Results Labs 09/20/22 18:53 09/21/22 02:35 Labs: Laboratory Results - last 24 hr 09/21/22 09/21/22 09/21/22 10:15 13:46 19:37 POC Glucose 218 H 210 H Urine Color Yellow Urine Appearance Clear Urine pH 6.0 Ur Specific [place] 1.015 Urine Protein Negative Urine Glucose (UA) Negative Urine Ketones Negative Urine Blood Negative Urine Nitrite Negative Ur Leukocyte Esterase Negative Urine RBC 0-2 Urine WBC 0-5 Ur Squamous Epith Cells 0-2 Urine Bacteria None Seen Hyaline Casts 0-2 09/22/22 09/22/22 01:12 07:16 POC Glucose 214 H 130 H Urine Color Urine Appearance Urine pH Ur Specific [place] Urine Protein Urine Glucose (UA) Urine Ketones Urine Blood Urine Nitrite Ur Leukocyte Esterase Urine RBC Urine WBC Ur Squamous Epith Cells Urine Bacteria Hyaline Casts Assessment and Plan (1) Unspecified skin changes: Status: Acute Plan L30.9 - 62 year old female with declining mobility and obesity awaiting physical therapy evaluation for placement. I encouraged her to try a short rehabilitation stay to optimize mobility and help her with self-care. This decline is relatively recent (last 2 months) and if she has unilateral leg pain, spinal evaluation might be appropriate on an outpatient basis. She has had urinary incontinence as long as she has been are patient in the wound care clinic. Might consider lumbar spine MRI if not already done. Would consider placing a Elliott catheter to protect her skin in the setting of established urinary incontinence, at least until her mobility improves. Agree with short-term rehabilitation with goal towards more independence at home, transition to home physical therapy once ambulation improves. Time Spent With Patient Time: Total time managing care of this patient today ____ minutes.
--- NOTE | 2022-09-22 11:47 | PC.NURSE ---
states abd pain for 3-4 days, abd soft and reported tenderness, ate a full breakfast this morning, skin wpd, Justine FITTER UP informed of abd pain, she will assess soon
[2022-09-22] MEDS: Milk of Magnesia 30 ML ORAL.SUSP PO (12:40)
[2022-09-22 13:28] LABS: Glucose, Whole Blood 205 mg/dL (60-115)
--- NOTE | 2022-09-22 13:54 | PC.NURSE ---
pt w nad, was about to eat beef stew and I suggested this was not the best choice w upset stomach, she agreed and I ordered another tray for her. pt had water and fruit cup
[2022-09-22] MEDS: oxyCODONE HCl Immed Release 5 MG TABLET PO ×2 (14:38→21:03)
--- NOTE | 2022-09-22 15:01 | PC.NURSE ---
Assumed care of patient upon transfer to ED overflow. Reporting 10/10 stomach pain medicated with 5mg Oxycodone PRN. Patient incontinent of urine and stool, complete bed change and new wick in place.
--- NOTE | 2022-09-22 15:18 | MHC.EDTECH ---
Assisted nurse Yaquelin with cleaning patient after bowel movement and changing linen. Sisi Preston
[2022-09-22 17:31] LABS: Glucose, Whole Blood 186 mg/dL (60-115)
[2022-09-22] MEDS: cloNIDine HCL 0.1 MG TABLET PO (17:40)
--- NOTE | 2022-09-22 18:39 | PC.NURSE ---
Patient continues to scream out someone help me, please someone help me, I am in pain. Patient reassured she is okay, continues to scream out I need pain medication man, I need to have a bowel movement. PRN clonidine given for increased anxiety, with no relief.
--- NOTE | 2022-09-22 18:46 | MHC.CM.ED ---
CM met with patient, who is in ED OVERFLOW 7. A&O x4. Pt lives alone. 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 Little assistance from family. Uses a cane/rollator. Pt is not vaccinated for Covid, as she believes that the vaccine gives you Covid. Pt was educated that elise is not true. Pt hesitant to believe this business writer.Was admitted to [facility] 09/08-09/16 and discharged with [facility]. Pt states she did not have any services with [facility], as she came back to the hospital for the pain in her back. Pt is aware that PT is recommending STR. Explained to patient that there is a lack of STR beds in the community due to anticipated closing of 4 area facilities. Explained that being unvaccinated is also a barrier for placement. Explained to patient that only 2 local facilities are reviewing, other flower there are no bed offers locally. Explained that 11 referrals were placed within 35 miles. Pt expresses that she does not want to go far. Again explained that there are no local beds at this time. Pt tells CM just leave me in the street . Pt then began to C/O constipation. RN aware. Pt aware that referrals have been placed and also a referral to [facility]. CM will follow for discharge planning.
[2022-09-22 21:07] LABS: Glucose, Whole Blood 262 mg/dL (60-115)
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
--- NOTE | 2022-09-22 21:58 | MHC.EDTECH ---
Pt refuses vital signs PT is very aggressive and hostile at the moment.
--- NOTE | 2022-09-22 22:58 | MHC.EDTECH ---
Took report from PCT Jesus Patient seems to be unhappy Patient called nursing remote encoding operations supervisor will continue to monitor
[2022-09-23 05:32] VITALS: RESP 18
[2022-09-23] MEDS: hydrALAZINE HCl 25 MG TABLET PO ×2 (08:02→21:31)
[2022-09-23] MEDS: Metoprolol Succinate ER 50 MG TAB.ER.24H PO (08:02)
[2022-09-23] MEDS: risperiDONE 1 MG TABLET PO ×2 (08:02→21:31)
[2022-09-23] MEDS: oxyCODONE HCl Immed Release 5 MG TABLET PO ×2 (08:02→21:10)
[2022-09-23] MEDS: Bumetanide 1 MG TABLET 2 MG PO (08:02)
[2022-09-23] MEDS: Spironolactone 25 MG TABLET PO (08:02)
[2022-09-23] MEDS: FLUoxetine HCl 20 MG CAPSULE 40 MG PO (08:02)
[2022-09-23] MEDS: Aspirin Enteric Coated 81 MG TABLET.DR PO (08:03)
[2022-09-23] MEDS: Clotrimazole 1 % Cream 15 GM TUBE 1 APPL TOPICAL ×2 (08:03→20:24)
[2022-09-23] MEDS: Isosorbide Mononitrate 30 MG TAB.ER.24H PO (08:03)
[2022-09-23] MEDS: Cholecalciferol (Vitamin D3) 25 MCG TABLET PO (08:03)
[2022-09-23] MEDS: Silver Sulfadiazine 1 % Cream 20 GM TUBE 1 APPL TOPICAL ×2 (08:03→20:24)
[2022-09-23] MEDS: Gabapentin 400 MG CAPSULE PO ×3 (08:03→20:21)
[2022-09-23] MEDS: Fluticasone Propionate 100 MCG BLST.W.DEV 2 PUFF INHALE ×2 (08:03→20:24)
[2022-09-23] MEDS: amLODIPine Besylate 5 MG TABLET PO (08:03)
[2022-09-23] MEDS: Nystatin Powder 15 GM BOTTLE 1 APPL TOPICAL ×2 (08:04→20:24)
[2022-09-23] MEDS: Insulin Glargine,Hum.rec.anlog 100 UNIT/ML 10 ML VIAL 50 UNIT SUBCUT ×2 (08:08→20:21)
--- NOTE | 2022-09-23 08:15 | PC.NURSE ---
assumed care of patient, pt resting comfortably in bed, breakfast tray delivered and set up for patient, VSS, am meds given
[2022-09-23 08:54] LABS: Glucose, Whole Blood 80 mg/dL (60-115)
--- NOTE | 2022-09-23 09:13 | MHC.EDTECH ---
pt cleaned, bedding and linen changed. purewick in place
--- NOTE | 2022-09-23 12:20 | MHC.CM.ED ---
Patient remains in ER overflow. Clinical updates sent to facilities still following patient: [facility], [facility], [facility], [facility], [facility], [facility], and [facility]. Continue to monitor for d/c needs.
[2022-09-23] MEDS: Zinc Oxide 20% Ointment 28.35 GM TUBE 1 APPL TOPICAL ×2 (12:38→20:22)
--- NOTE | 2022-09-23 13:23 | PC.NURSE ---
lunch tray delivered and set up for patient
--- NOTE | 2022-09-23 15:05 | PC.NURSE ---
Assumed care of patient, pt resting in bed complaining of discomfort. Reposition in bed. will continue to monitor
--- NOTE | 2022-09-23 15:56 | PC.NURSE ---
Pt requesting this RN for something to help help me , I don't want to live like this anymore, i don't have anyone, I want to . ED charge nurse and PA notified. Per provider orders a 1:1 sitter will be assign. will continue to monitor.
[2022-09-23 17:11] LABS: Glucose, Whole Blood 148 mg/dL (60-115)
[2022-09-23 17:11] LABS: Glucose, Whole Blood 149 mg/dL (60-115)
[2022-09-23 18:24] VITALS: BP 149/68; PULSE 62; RESP 20; TEMP 36.4; O2SAT 96
[2022-09-23] MEDS: Atorvastatin Calcium 10 MG TABLET PO (20:21)
[2022-09-23] MEDS: Bumetanide 1 MG TABLET PO (20:21)
[2022-09-23] MEDS: TiZANidine HCL 4 MG TABLET PO (21:31)
[2022-09-23] MEDS: cloNIDine HCL 0.1 MG TABLET PO (21:31)
[2022-09-23 21:55] LABS: Glucose, Whole Blood 303 mg/dL (60-115)
[2022-09-23] MEDS: Insulin Lispro 100 UNIT/ML 3 ML VIAL SUBCUT (21:58)
--- NOTE | 2022-09-23 22:43 | PC.NURSE ---
PATIENT AGITATED AND IN PAIN, 10/10, UPON INITIAL ASSESSMENT. PRN CLONIDINE GIVEN WITH GOOD EFFECT, SEE EMAR. PRN OXYCODONE GIVEN WITH GOOD EFFECT, ALLEVIATING PAIN TO A 3/10. SEE EMAR. PATIENT STATEMENT ABLE TO FINALLY REST COMFORTABLY. PATIENT INFORMED ON IMPRTANCE TO ROTATE INSULIN INJECTION SITES, VERBALIZED UNDERSTANDING. PATIENT INFORMED ON IMPORTANCE TO ROTATE IN BED, VERBALIZED UNDERSTANDING. ALL MEDICATIONS PASSED WITHOUT ISSUE. PATIENT ABLE TO SWALLOW PILLS WHOLE WITH WATER
--- NOTE | 2022-09-23 22:54 | PC.NURSE ---
Per Johana from , the Care Team contacted her stating that OF7 had been cleared by the Care Team. Tita (GUADALUPE) aware, per Tita pt no longer requires a sitter. Primary RN notified, nursing media supervisor notified.
[2022-09-23 23:47] VITALS: BP 127/55; PULSE 76; RESP 18; O2SAT 95
[2022-09-24] MEDS: oxyCODONE HCl Immed Release 5 MG TABLET PO ×2 (03:26→09:31)
[2022-09-24 07:16] LABS: Glucose, Whole Blood 137 mg/dL (60-115)
[2022-09-24 07:35] VITALS: BP 116/37; PULSE 83; RESP 17; O2SAT 94
[2022-09-24] MEDS: Fluticasone Propionate 100 MCG BLST.W.DEV 2 PUFF INHALE (09:00)
[2022-09-24] MEDS: FLUoxetine HCl 20 MG CAPSULE 40 MG PO (09:27)
[2022-09-24] MEDS: hydrALAZINE HCl 25 MG TABLET PO (09:28)
[2022-09-24] MEDS: risperiDONE 1 MG TABLET PO (09:28)
[2022-09-24] MEDS: amLODIPine Besylate 5 MG TABLET PO (09:29)
[2022-09-24] MEDS: Bumetanide 1 MG TABLET 2 MG PO (09:29)
[2022-09-24] MEDS: Isosorbide Mononitrate 30 MG TAB.ER.24H PO (09:29)
[2022-09-24] MEDS: Cholecalciferol (Vitamin D3) 25 MCG TABLET PO (09:30)
[2022-09-24] MEDS: cloNIDine HCL 0.1 MG TABLET PO (09:30)
[2022-09-24] MEDS: Aspirin Enteric Coated 81 MG TABLET.DR PO (09:30)
[2022-09-24] MEDS: Gabapentin 400 MG CAPSULE PO (09:31)
[2022-09-24] MEDS: Spironolactone 25 MG TABLET PO (09:31)
[2022-09-24] MEDS: Metoprolol Succinate ER 50 MG TAB.ER.24H PO (09:31)
[2022-09-24] MEDS: Insulin Glargine,Hum.rec.anlog 100 UNIT/ML 10 ML VIAL 50 UNIT SUBCUT (09:35)
[2022-09-24] MEDS: Silver Sulfadiazine 1 % Cream 20 GM TUBE 1 APPL TOPICAL (09:41)
[2022-09-24] MEDS: Clotrimazole 1 % Cream 15 GM TUBE 1 APPL TOPICAL (09:41)
[2022-09-24] MEDS: Nystatin Powder 15 GM BOTTLE 1 APPL TOPICAL (09:41)
[2022-09-24] MEDS: Zinc Oxide 20% Ointment 28.35 GM TUBE 1 APPL TOPICAL (09:42)
--- NOTE | 2022-09-24 11:21 | PC.NURSE ---
Pt cleaned and changed, dressing on wound changed.
--- NOTE | 2022-09-24 11:30 | MHC.EDTECH ---
cleaned and changed pt. RN changed dressing, patient tolerated well.
--- NOTE | 2022-09-24 11:38 | PC.NURSE ---
Pt continues to scream out please hep me, please help me Pt reassured she is okay. PRN clonidine was given with no relief.
--- NOTE | 2022-09-24 11:40 | PC.NURSE ---
Pt requesting to speak with case management. stating I want to go home
--- NOTE | 2022-09-24 12:12 | MHC.CM.ED ---
Received notification from Cari CANTU that patient is requesting to go home. Met with patient. Patient aware physical therapy is recommending STR. 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 Annita SARAVIA booked for 1230pm. [facility] with chart. Patient, Cari CANTU, and Marian BUTCHER aware. [facility] made aware. Continue to monitor for d/c needs.
--- NOTE | 2022-09-24 12:48 | PC.NURSE ---
Pt had stated to Case Management that she was refusing STR and wanted to go home. Elliott was placed per request from wound care and pt was sent home via ems.
== END 2022-09-24 12:53 | disposition home or self-care (01) ==
PROVIDERS: Emergency Medicine Emergency Medical Services; Physician Assistant Medical; Emergency Provider Student in an Organized Health Care Education/Training Program; PCP Internal Medicine
DX: R53.1 Weakness (principal); N17.9 Acute kidney failure, unspecified; R26.89 Other abnormalities of gait and mobility; M25.552 Pain in left hip; R10.9 Unspecified abdominal pain; R60.0 Localized edema; L98.419 Non-pressure chronic ulcer of buttock with unspecified severity; F41.9 Anxiety disorder, unspecified; R45.851 Suicidal ideations; Z20.822 Contact with and (suspected) exposure to COVID-19; E11.22 Type 2 diabetes mellitus with diabetic chronic kidney disease; I13.0 Hypertensive heart and chronic kidney disease with heart failure and stage 1 through stage 4 chronic kidney disease, or unspecified chronic kidney disease; N18.30 Chronic kidney disease, stage 3 unspecified; I50.9 Heart failure, unspecified; E78.5 Hyperlipidemia, unspecified; E66.9 Obesity, unspecified; Z68.42 Body mass index [BMI] 45.0-49.9, adult; Z79.82 Long term (current) use of aspirin; Z79.02 Long term (current) use of antithrombotics/antiplatelets; Z79.899 Other long term (current) drug therapy; Z79.4 Long term (current) use of insulin; Z87.891 Personal history of nicotine dependence
CPT/HCPCS: 36415; 51702; 80048; 80053; 81001; 81003; 82947; 85025; 87635; 96360; 96361; 97162; 99285; S9485

== ENCOUNTER 2022-09-27 16:26 | Emergency (ER) | payer MEDICAID, SELFPAY ==
--- NOTE | ~2022-09-27 | XR_ITS ---
EXAMINATION: XR HAND, RIGHT CLINICAL INFORMATION: Swelling in the finger. COMPARISON: None TECHNIQUE: Three views of the right hand. FINDINGS: Diffuse soft tissue swelling of the middle finger. No air in the soft tissue. No radiopaque foreign body. There are extensive small vessel calcifications in the hand. No acute osseous abnormality. No fracture or bone destruction. Joint spaces are normal. No significant arthropathy. XR/XR hand RT min 3V IMPRESSION: Diffuse soft tissue swelling of the middle finger. No acute osseous abnormality. No radiopaque foreign body.
[2022-09-27 16:48] VITALS: BP 112/70; BP 135/53; PULSE 75; PULSE 78; RESP 16; TEMP 36.6; O2SAT 96; O2SAT 97; BMI 51.5
[2022-09-27 17:04] LABS: MANUAL DIFF FLAG NO
[2022-09-27 17:07] LABS: Basophils Percent Auto 0.2 % (0-2); Eosinophils Absolute Auto 0.2 X10*3/uL (0.0-0.4); Eosinophils Percent Auto 1.4 % (0-4); Hematocrit 31.8 % (37.0-47.0); Hemoglobin 10.3 g/dl (12.0-16.0); Imm Gran Abs Auto 0.09 X10*3/uL (0.00-0.03); Imm Gran Pct Auto 0.7 % (0.0-0.4); Lymphocytes Absolute Auto 0.8 X10*3/uL (1.2-4.9); Lymphocytes Percent Auto 6.8 % (20-40); Mean Corpuscular HGB Conc 32.4 g/dl (31.0-35.0); Mean Corpuscular Hemoglobin 28.1 pg (27.0-33.0); Mean Corpuscular Volume 86.9 fL (80.0-98.0); Mean Platelet Volume 9.2 fL (9.4-12.3); Monocytes Absolute Auto 0.7 X10*3/uL (0.1-1.2); Monocytes Percent Auto 5.9 % (2-11); Neutrophils Absolute Auto 10.4 x10*3/uL (2.0-8.3); Platelet Count 250 X10*3/uL (160-400); Red Blood Count 3.66 X10*6/uL (4.20-5.50); Red Cell Distribution Width 13.3 % (11.0-16.0); White Blood Count 12.3 X10*3/uL (4.8-10.8)
[2022-09-27 17:22] LABS: Appearance Urine Clear; Color Urine Yellow; Glucose Urine UA Negative (Negative); Leukocyte Esterase Urine Small (1+) (Negative); Nitrite Urine Negative (Negative); Specific Gravity - Urine <= 1.005 (1.005-1.025); UMIC TRIGGER UACC YES; Urine Blood Moderate (2+) (Negative); Urine Ketones Negative (Negative); Urine Protein Negative (Neg-Trace)
[2022-09-27 17:25] LABS: Alanine Aminotransferase 16 U/L (0-31); Albumin Level 3.5 g/dL (3.5-5.0); Alkaline Phosphatase 70 U/L (39-117); Anion Gap 22 (12-20); Aspartate Amino Transferase 23 U/L (5-31); Bilirubin Total 0.6 mg/dL (0.0-1.0); Blood Urea Nitrogen 119 mg/dL (9-16); Calcium 8.3 mg/dL (8.4-10.2); Carbon Dioxide 20 mmol/L (22-29); Chloride 93 mmol/L (96-108); Creatinine Clr Calc Pharmacy 21.3; Estimated Glomerular Filt Rate 13; Glucose Random 181 mg/dL (60-115); Potassium 5.4 mmol/L (3.3-5.1); Sodium 130 mmol/L (135-145); Total Protein 6.8 g/dL (6.5-8.0)
[2022-09-27 17:35] LABS: Bacteria Urine None Seen (None Seen); Hyaline Casts Urine 0-2 /LPF (0-2); Squamous Epithelial Cell Urine 0-2 /HPF (0-2); UACC Culture Trigger YES; WBC Urine 0-5 /HPF (0-5)
[2022-09-27 19:53] VITALS: BP 138/48; PULSE 73; RESP 14; TEMP 37.1; O2SAT 96
[2022-09-27] MEDS: 0.9 % Sodium Chloride 500 ML 999 ML IV (20:13)
--- NOTE | 2022-09-27 21:28 | ED.GENADULT ---
HPI - General Adult General Chief complaint: Weakness Stated complaint: GENERAL WEAKNESS X 4 DAYS Time Seen by Provider: 09/27/22 16:32 Source: patient Mode of arrival: EMS History of Present Illness HPI narrative: 62-year-old female brought in by EMS, known to this ER after she has had multiple visits for similar complaints but then declines short-term rehab and is subsequently discharged with VNA. Patient denies any fever, chills, nausea, vomiting, shortness of breath or chest pain and states that she is unable to walk and when I asked her if this was new she endorsed that it was not new and when I asked her what brought her in she states that she does not have anyone at home to take care of her and only gets 2 hours a day. Related Data Home Medications Medication Instructions Recorded Confirmed albuterol sulfate 90 mcg/actuation 2 puff inhalation Q4H PRN Dyspnea 11/23/20 09/21/22 aerosol inhaler (ProAir HFA) aspirin 81 mg tablet,delayed 81 mg PO DAILY 11/23/20 09/21/22 release fluoxetine 40 mg capsule 40 mg PO DAILY 11/23/20 09/21/22 fluticasone propionate 110 2 puff inhalation BID 11/23/20 09/21/22 mcg/actuation HFA aerosol inhaler (Flovent HFA) metoprolol succinate 50 mg 50 mg PO DAILY 11/23/20 09/21/22 tablet,extended release 24 hr simvastatin 20 mg tablet 20 mg PO BEDTIME 11/23/20 09/21/22 isosorbide mononitrate 30 mg 30 mg PO DAILY 12/11/20 09/21/22 tablet,extended release 24 hr tizanidine 4 mg tablet 4 mg PO BEDTIME 12/11/20 09/21/22 bumetanide 2 mg tablet 1 tab PO DAILY 06/07/21 09/21/22 cholecalciferol (vitamin D3) 25 1 cap PO DAILY 06/07/21 09/21/22 mcg (1,000 unit) capsule meclizine 25 mg tablet 25 mg PO TID PRN Dizziness 06/07/21 09/21/22 risperidone 1 mg tablet 1 tab PO BID 04/20/22 09/21/22 blood sugar diagnostic (FreeStyle #10 ea 06/25/22 06/25/22 Lite Strips) insulin syringe-needle U-100 1 mL #10 ea 06/25/22 06/25/22 31 gauge x 5/16 (BD Insulin Syringe Ultra-Fine) lancets 28 gauge (FreeStyle #100 ea 06/25/22 06/25/22 Lancets) clotrimazole 1 % topical cream 1 appl topical BID 09/08/22 09/21/22 gabapentin 400 mg capsule 400 mg PO TID 09/08/22 09/21/22 insulin glargine 100 unit/mL 50 unit subcut BID 09/08/22 09/21/22 subcutaneous solution (Lantus U-100 Insulin) nystatin 100,000 unit/gram topical 1 appl topical BID 09/08/22 09/21/22 powder silver sulfadiazine 1 % topical 1 appl topical BID 09/08/22 09/21/22 cream Previous Rx's Medication Instructions Recorded insulin lispro 100 unit/mL See Protocol subcut QIDACHS #1 mL 01/16/21 subcutaneous solution (Humalog U-100 Insulin) clonidine HCl 0.1 mg tablet 0.1 mg PO TID PRN hyperarousal, 04/01/22 anxiety, panic #90 tabs bumetanide 1 mg tablet 1 mg PO BEDTIME #30 tabs 04/08/22 hydralazine 25 mg tablet 25 mg PO BID #60 tabs 04/08/22 spironolactone 25 mg tablet 25 mg PO DAILY #30 tabs 04/08/22 docusate sodium 100 mg capsule 100 mg PO DAILY PRN Constipation 04/26/22 #30 caps blood-glucose meter (FreeStyle #1 ea 09/02/22 Lite Meter kit) amlodipine 5 mg tablet 5 mg PO DAILY #30 tabs 09/16/22 oxycodone 5 mg tablet 5 mg PO Q6H PRN Pain, Moderate 09/16/22 (Pain Scale 4-6 #12 tabs Allergies Allergy/AdvReac Type Severity Reaction Status Date / Time ibuprofen Allergy Intermediate vommiting, Verified 06/25/22 10:50 itching acetaminophen [Tylenol] Allergy Mild Unknown Verified 06/25/22 10:50 morphine AdvReac Intermediate vomiting Verified 06/25/22 10:50 Review of Systems Review of Systems: Pertinent positives and negatives as stated in [facility] Past Medical History Source: nursing notes reviewed Medical History Abdominal pain Acute on chronic combined systolic and diastolic CHF (congestive heart failure) Adjustment disorder with mixed anxiety and depressed mood FELICIA (acute kidney injury) Asthma Cellulitis of right lower extremity CHF exacerbation Chronic pain Chronic respiratory failure with hypoxia CKD (chronic kidney disease) stage 3, GFR 30-59 ml/min Congestive heart failure Constipation COPD (chronic obstructive pulmonary disease) Decubitus ulcer Depression Diabetes Diabetic neuropathy, painful High cholesterol Hyperglycemia due to diabetes mellitus Hypertension Hypoxia MDD (major depressive disorder), recurrent episode, moderate Morbid obesity NICM (nonischemic cardiomyopathy) Obesity hypoventilation syndrome DANIEL (obstructive sleep apnea) Panic disorder Stasis dermatitis of both legs Stercoral colitis Uncontrolled type 2 diabetes mellitus with hyperglycemia Surgical History Hx of cholecystectomy Family History Family History Mother HTN (hypertension) Diabetes CAD (coronary artery disease) Father HTN (hypertension) Diabetes CAD (coronary artery disease) Maternal Grandmother CAD (coronary artery disease) Social History Social History Household Members: None Household Members Other:: GRANDSON Housing: Apartment Housing Other:: with lead designer Do you presently have visiting nurse or other home services: Yes Alcohol intake: unknown Patient Tobacco Use Status: Former Tobacco user Quit Date: 1999 Tobacco use type: Cigarette Years Smoked: 38 Second Hand Smoke Exposure: No Substance Use Type: Marijuana Advance Directives: Yes Advance Directives on File: Yes Advance Directives Date on File: 12/19/20 service: No Current occupational status: disabled Physical Exam ED Vital Signs: Vital Signs - 24 hr 09/27/22 16:48 09/27/22 19:53 Temperature 97.8 F 98.8 F Pulse Rate 75 73 Respiratory Rate 16 14 Blood Pressure 135/53 L 138/48 L Pulse Oximetry 96 96 Oxygen Delivery Method Room Air Room Air BMI result Body Mass Index 51.5 VITAL SIGNS: Reviewed. GENERAL: Well developed, well nourished, in no acute distress. HEAD: Normocephalic/atraumatic EYES: PERRLA, EOMI EARS: Ext canals without abnormality OROPHARYNX: no oral lesions noted, posterior pharynx clear NECK: Supple, no adenopathy LUNGS: Normal breath sounds. No adventitious sounds or accessory muscle use. SpO2<96> CARDIOVASCULAR: Regular rate and rhythm without noted murmurs, no JVD bilateral chronic 1+ pitting edema ABDOMEN: Soft, non-tender, non-distended with bowel sounds. BACK: There is skin breakdown noted across bilateral buttocks with mild involvement of the lower L-spine and appears to be some skin breakdown on bilateral inner thighs but no evidence of abscess, induration. MUSCULOSKELETAL: No tenderness, deformities, or effusions noted on gross inspection. EXTREMITIES: No cyanosis, clubbing or edema. SKIN: Inspection of the skin reveals no rashes, please see remaining skin evaluation as documented above NEUROLOGIC: Alert and oriented x . Strength x2 5/5, bilateral lower extremity weakness which is chronic baseline. Medications Administered Discontinued Medications Generic Name Dose Route Start Last Admin Trade Name Freq PRN Reason Stop Dose Admin Sodium Chloride 500 mls @ 999 mls/hr 09/27/22 20:00 09/27/22 21:56 Ns IV 09/27/22 20:30 Infused .Q31M HI Infusion Medical Decision Making Medical Decision Making [facility] Narrative: 62-year-old female with unknown etiology for progressive lower extremity weakness that is isolated to the lower extremities, has been evaluated here in the emergency room multiple times and every time on review of documentation she has declined short-term rehab. Instead, patient has opted for home with VNA but now states that she only gets 2 hours a day which is insufficient as she has no one else to take care of her. I reviewed all of her lab work and noted the leukocytosis which on review of documentation has been further investigated with a leukocyte tagged nuclear medicine study and identified some possible uptake within the small bowel. However, patient does not appear to have other GI symptoms to suggest an IBD etiology. She is afebrile here in the emergency room and on review of her initial chemistry studies there was a very mild hyperkalemia with acute on chronic FELICIA that resolved on repeat after receiving 500 cc of normal saline. I gently rehydrated her as she also carries a diagnosis of CHF. At this time patient would be otherwise medically cleared for return to home, but I am unsure about what patient is requesting. Patient is otherwise medically cleared for evaluation for short-term rehab. Patient placed in physician observation because the patient needed more time for case management and physical therapy evaluation. At the time observation was started the patient's vital signs were stable, patient is alert and oriented, neuro: Nonfocal, CV RRR, lungs clear Differential Diagnosis Please see the discussion above Lab Data Please see the discussion above 09/27/22 17:00 09/27/22 17:00 Labs: Lab Results 09/27/22 09/27/22 09/27/22 Range/Units 17:00 17:00 17:09 WBC 12.3 H (4.8-10.8) X10*3/uL RBC 3.66 L (4.20-5.50) X10*6/uL Hgb 10.3 L (12.0-16.0) g/dl Hct 31.8 L (37.0-47.0) % MCV 86.9 (80.0-98.0) fL MCH 28.1 (27.0-33.0) pg MCHC 32.4 (31.0-35.0) g/dl RDW 13.3 (11.0-16.0) % Plt Count 250 (160-400) X10*3/uL MPV 9.2 L (9.4-12.3) fL Immature Gran % (Auto) 0.7 H (0.0-0.4) % Neut % (Auto) 85.0 H (45-73) % Lymph % (Auto) 6.8 L (20-40) % [place] % (Auto) 5.9 (2-11) % Eos % (Auto) 1.4 (0-4) % Baso % (Auto) 0.2 (0-2) % Lymph # (Auto) 0.8 L (1.2-4.9) X10*3/uL [place] # (Auto) 0.7 (0.1-1.2) X10*3/uL Eos # (Auto) 0.2 (0.0-0.4) X10*3/uL Baso # (Auto) 0.0 (0.0-0.2) X10*3/uL Abs Immat Gran (auto) 0.09 H (0.00-0.03) X10*3/uL Absolute Neuts (auto) 10.4 H (2.0-8.3) x10*3/uL Absolute Nucleated RBC 0.000 (0.0-0.012) X10*3/uL Nucleated RBC % (auto) 0.0 (0.0-0.2) /100WBC Sodium 130 L (135-145) mmol/L Potassium 5.4 H (3.3-5.1) mmol/L Chloride 93 L (96-108) mmol/L Carbon Dioxide 20 L (22-29) mmol/L Anion Gap 22 H (12-20) BUN 119 H (9-16) mg/dL Creatinine 3.56 H (0.5-1.4) mg/dL Estim Creat Clear Calc 21.3 Estimated GFR 13 Random Glucose 181 H (60-115) mg/dL Calcium 8.3 L (8.4-10.2) mg/dL Total Bilirubin 0.6 (0.0-1.0) mg/dL AST 23 (5-31) U/L ALT 16 (0-31) U/L Alkaline Phosphatase 70 (39-117) U/L Total Protein 6.8 (6.5-8.0) g/dL Albumin 3.5 (3.5-5.0) g/dL Urine Color Yellow Urine Appearance Clear Urine pH 5.0 (5.0-9.0) Ur Specific [place] <= 1.005 (1.005-1.025) Urine Protein Negative (Neg-Trace) mg/dL Urine Glucose (UA) Negative (Negative) mg/dL Urine Ketones Negative (Negative) mg/dL Urine Blood Moderate (2+) H (Negative) Urine Nitrite Negative (Negative) Ur Leukocyte Esterase Small (1+) H (Negative) Urine RBC 3-5 H (0-2) /HPF Urine WBC 0-5 (0-5) /HPF Ur Squamous Epith Cells 0-2 (0-2) /HPF Urine Bacteria None Seen (None Seen) Hyaline Casts 0-2 (0-2) /LPF 09/27/22 Range/Units 22:50 WBC (4.8-10.8) X10*3/uL RBC (4.20-5.50) X10*6/uL Hgb (12.0-16.0) g/dl Hct (37.0-47.0) % MCV (80.0-98.0) fL MCH (27.0-33.0) pg MCHC (31.0-35.0) g/dl RDW (11.0-16.0) % Plt Count (160-400) X10*3/uL MPV (9.4-12.3) fL Immature Gran % (Auto) (0.0-0.4) % Neut % (Auto) (45-73) % Lymph % (Auto) (20-40) % [place] % (Auto) (2-11) % Eos % (Auto) (0-4) % Baso % (Auto) (0-2) % Lymph # (Auto) (1.2-4.9) X10*3/uL [place] # (Auto) (0.1-1.2) X10*3/uL Eos # (Auto) (0.0-0.4) X10*3/uL Baso # (Auto) (0.0-0.2) X10*3/uL Abs Immat Gran (auto) (0.00-0.03) X10*3/uL Absolute Neuts (auto) (2.0-8.3) x10*3/uL Absolute Nucleated RBC (0.0-0.012) X10*3/uL Nucleated RBC % (auto) (0.0-0.2) /100WBC Sodium 135 (135-145) mmol/L Potassium 4.5 (3.3-5.1) mmol/L Chloride 100 (96-108) mmol/L Carbon Dioxide 22 (22-29) mmol/L Anion Gap 18 (12-20) BUN 107 H (9-16) mg/dL Creatinine 2.66 H (0.5-1.4) mg/dL Estim Creat Clear Calc 28.5 Estimated GFR 18 Random Glucose 136 H (60-115) mg/dL Calcium 7.8 L D (8.4-10.2) mg/dL Total Bilirubin (0.0-1.0) mg/dL AST (5-31) U/L ALT (0-31) U/L Alkaline Phosphatase (39-117) U/L Total Protein (6.5-8.0) g/dL Albumin (3.5-5.0) g/dL Urine Color Urine Appearance Urine pH (5.0-9.0) Ur Specific [place] (1.005-1.025) Urine Protein (Neg-Trace) mg/dL Urine Glucose (UA) (Negative) mg/dL Urine Ketones (Negative) mg/dL Urine Blood (Negative) Urine Nitrite (Negative) Ur Leukocyte Esterase (Negative) Urine RBC (0-2) /HPF Urine WBC (0-5) /HPF Ur Squamous Epith Cells (0-2) /HPF Urine Bacteria (None Seen) Hyaline Casts (0-2) /LPF Discharge Plan Discharge Clinical Impression: Adult failure to thrive, Severe muscle deconditioning Patient Disposition: Still a Patient Prescriptions: No Action (DME) blood-glucose meter [FreeStyle Lite Meter] Kit See Rx Instructions .Route Qty: 1 0RF Rx Instructions: As directed checks POC 4 X/day insulin lispro [Humalog U-100 Insulin] 100 unit/mL Solution See Protocol subcut QIDACHS Qty: 1 0RF Protocol: Insulin Correction Scale Less than or equal to 110 ---- Give (units): 0 111 to 150 Give (units): 0 151 to 200 Give (units): 2 201 to 250 Give (units): 4 251 to 300 Give (units): 6 301 to 350 Give (units): 8 Greater than 350 Give (units): 10 Call MD if Blood Glucose > : 350 Rx Instructions: sliding scale fluoxetine 40 mg capsule 40 mg PO DAILY metoprolol succinate 50 mg tablet extended release 24 hr 50 mg PO DAILY aspirin 81 mg tablet,delayed release (DR/EC) 81 mg PO DAILY simvastatin 20 mg tablet 20 mg PO BEDTIME albuterol sulfate [ProAir HFA] 90 mcg/actuation HFA aerosol inhaler 2 puff inhalation Q4H PRN (Reason: Dyspnea) fluticasone propionate [Flovent HFA] 110 mcg/actuation HFA aerosol inhaler 2 puff inhalation BID tizanidine 4 mg Tablet 4 mg PO BEDTIME isosorbide mononitrate 30 mg Tablet Extended Release 24 Hr 30 mg PO DAILY bumetanide 2 mg tablet 1 tab PO DAILY cholecalciferol (vitamin D3) 25 mcg (1,000 unit) capsule 1 cap PO DAILY meclizine 25 mg Tablet 25 mg PO TID PRN (Reason: Dizziness) docusate sodium 100 mg Capsule 100 mg PO DAILY PRN (Reason: Constipation) Qty: 30 0RF silver sulfadiazine 1 % Cream 1 appl TOPICAL BID Rx Instructions: apply a 1.5 mm thickness, to buttock wounds gabapentin 400 mg Capsule 400 mg PO TID nystatin 100,000 unit/gram Powder 1 appl TOPICAL BID Protocol: Apply to: Apply to: AFFECTED AREA insulin glargine [Lantus U-100 Insulin] 100 unit/mL solution 50 unit subcut BID clotrimazole 1 % Cream 1 appl TOPICAL BID Protocol: Apply to: Apply to: AFFECTED AREA amlodipine 5 mg Tablet 5 mg PO DAILY Qty: 30 0RF Protocol: Hold for SBP< HOLD for SBP < : 90 oxycodone 5 mg Tablet 5 mg PO Q6H PRN (Reason: Pain, Moderate (Pain Scale 4-6) Qty: 12 0RF Rx Instructions: Partial Fill upon patient request. clonidine HCl 0.1 mg Tablet 0.1 mg PO TID PRN (Reason: hyperarousal, anxiety, panic) Qty: 90 0RF Protocol: Hold for SBP< HOLD for SBP < : 90 hydralazine 25 mg Tablet 25 mg PO BID Qty: 60 0RF Protocol: Hold for SBP< HOLD for SBP < : 90 spironolactone 25 mg Tablet 25 mg PO DAILY Qty: 30 0RF Protocol: Hold for SBP< HOLD for SBP < : 90 bumetanide 1 mg Tablet 1 mg PO BEDTIME Qty: 30 0RF Protocol: Hold for SBP< HOLD for SBP < : 90 risperidone 1 mg tablet 1 tab PO BID (DME) FreeStyle Lite Strips Strip See Rx Instructions .ROUTE BID Qty: 10 Rx Instructions: As directed (DME) lancets [FreeStyle Lancets] 28 gauge misc See Rx Instructions .ROUTE QID Qty: 100 Rx Instructions: As directed (DME) insulin syringe-needle U-100 [BD Insulin Syringe Ultra-Fine] 1 mL 31 gauge x 5/16 syringe See Rx Instructions .ROUTE QID Qty: 10 Rx Instructions: As directed
--- NOTE | 2022-09-27 22:45 | PC.NURSE ---
late entry-this rn and tile edger changed pt due to incontinence of stool. ghotra catheter emptied. pt tearful at this time. bed linens changed pt provided with warm blanket
[2022-09-27 23:15] LABS: Anion Gap 18 (12-20); Blood Urea Nitrogen 107 mg/dL (9-16); Calcium 7.8 mg/dL (8.4-10.2); Carbon Dioxide 22 mmol/L (22-29); Chloride 100 mmol/L (96-108); Creatinine Clr Calc Pharmacy 28.5; Estimated Glomerular Filt Rate 18; Glucose Random 136 mg/dL (60-115); Potassium 4.5 mmol/L (3.3-5.1); Sodium 135 mmol/L (135-145)
--- NOTE | 2022-09-27 23:46 | PC.NURSE ---
dr see placed US IV in R ac.pt agitated with provider. this rn at bedside with dr see to roll pt for assessment of wound on coccyx. pt became aggitated yelling at and this rn
--- NOTE | 2022-09-27 23:48 | PC.NURSE ---
this rn spoke with pt at bedside. pt reports interest to this rn of short term rehab despite decline to short term rehab in past visits. dr see made aware of this
[2022-09-28] VITALS (8 sets, daily range): BP systolic 107–143; BP diastolic 55–78; PULSE 68–84; RESP 11–18; TEMP 36.6–37.1; O2SAT 90–96
--- NOTE | 2022-09-28 05:42 | PC.NURSE ---
pt noted to be sleeping on stretcher at this time. ghotra catheter draining well.
--- NOTE | 2022-09-28 08:30 | PC.NURSE ---
pt brought from main ed to ovflw unit. pt transferred from stretcher to hospital bed by staff. incontinent care and complete bed change done. open area present on coccyx, barrier cream applied, ghotra catheter remains in place, pt repositioned, breakfast given. pt resting quietly, no apparent distress.
--- NOTE | 2022-09-28 08:45 | MHC.EDTECH ---
Pt came from main ED and transferred over from stretcher to hospital bed. With the help of PEPE Lira, Pt was cleaned up, with new hospital gown placed, new linen and underpads. Barrier cream placed on Pts bottom. Pt repositioned with head of bed elevated. Breakfast tray ordered for Pt. Pt resting quietly.
--- NOTE | 2022-09-28 09:15 | PHA.MEDREC ---
Pharmacy Consult ? Medication Reconciliation Pharmacy has completed the medication reconciliation. Spoke to patient, but they are poor historian of medications. Called their VNA ([facility]) and spoke to their nurse Bria which confirmed medications. Patient is on amlodipine 5mg, despite claim history showing 10mg fill history. Patient also takes gabapentin 400mg in the morning and afternoon, and then takes 800mg gabapentin at bedtime.
[2022-09-28] MEDS: Insulin Glargine,Hum.rec.anlog 100 UNIT/ML 10 ML VIAL 50 UNIT SUBCUT ×2 (10:25→21:04)
[2022-09-28] MEDS: Aspirin Enteric Coated 81 MG TABLET.DR PO (10:25)
[2022-09-28] MEDS: FLUoxetine HCl 20 MG CAPSULE 40 MG PO (10:25)
[2022-09-28] MEDS: Gabapentin 400 MG CAPSULE PO ×2 (10:26→14:37)
[2022-09-28] MEDS: Cholecalciferol (Vitamin D3) 25 MCG TABLET PO (10:26)
[2022-09-28] MEDS: Bumetanide 1 MG TABLET 2 MG PO (10:26)
[2022-09-28 10:35] LABS: Glucose, Whole Blood 162 mg/dL (60-115)
[2022-09-28] MEDS: hydrALAZINE HCl 25 MG TABLET PO ×2 (10:37→20:59)
[2022-09-28] MEDS: risperiDONE 1 MG TABLET PO ×2 (10:38→21:00)
[2022-09-28] MEDS: Silver Sulfadiazine 1 % Cream 20 GM TUBE 1 APPL TOPICAL (10:38)
--- NOTE | 2022-09-28 10:48 | PC.NURSE ---
Assumed care of patient at 0818, pt arrived to unit inc of stool. Inc care provided. Pt settled into bed, all safety measures in place, call lopez in reach, bed low, bed alarm on. VSS.
--- NOTE | 2022-09-28 10:57 | MHC.CM.ED ---
Received case management consult overnight. Patient was in the ER on 09/18. STR was recommended at that time. Placement was not able to be found because patient has not received any Covid vaccines and only has [employer] for insurance. Patient decided to go [facility] on 09/24 with resumption of [facility]. Patient returned to the ER because she is not agreeable to STR. Physical therapy eval is pending. Covid swab is pending. Referral broadcasted in [facility] to all facilities within 20 miles. Continue to monitor for d/c needs.
[2022-09-28 11:30] LABS: Influenza A PCR NEGATIVE (Negative); Influenza B PCR NEGATIVE (Negative); Resp Syncy Virus RNA Qual PCR NEGATIVE (Negative); SARS COV2 PCR INHOUSE NEGATIVE (Negative)
[2022-09-28] MEDS: amLODIPine Besylate 5 MG TABLET PO (11:43)
[2022-09-28] MEDS: Atorvastatin Calcium 10 MG TABLET PO (11:43)
--- NOTE | 2022-09-28 12:37 | MHC.EDTECH ---
Went to check on Pt to make sure she was clean and dry, and Pt told me that we need to leave her alone.
[2022-09-28 12:50] LABS: Glucose, Whole Blood 174 mg/dL (60-115)
[2022-09-28] MEDS: Insulin Lispro 100 UNIT/ML 3 ML VIAL SUBCUT ×3 (13:40→21:04)
--- NOTE | 2022-09-28 14:12 | PC.NURSE ---
Encouraged pt to turn and reposition in bed to prevent skin breakdown. Pt refused multiple times despite education regarding subject.
[2022-09-28 18:22] LABS: Glucose, Whole Blood 164 mg/dL (60-115)
[2022-09-28] MEDS: Gabapentin 400 MG CAPSULE 800 MG PO (21:00)
[2022-09-28] MEDS: Bumetanide 1 MG TABLET PO (21:00)
[2022-09-28] MEDS: TiZANidine HCL 4 MG TABLET PO (21:00)
[2022-09-28 21:08] LABS: Glucose, Whole Blood 236 mg/dL (60-115)
[2022-09-28] MEDS: Fluticasone Propionate 100 MCG BLST.W.DEV 2 PUFF INHALE (22:15)
[2022-09-29 06:00] VITALS: BP 127/61; PULSE 78; RESP 18; O2SAT 93
[2022-09-29 07:16] LABS: Glucose, Whole Blood 124 mg/dL (60-115)
[2022-09-29] MEDS: amLODIPine Besylate 5 MG TABLET PO (09:34)
[2022-09-29] MEDS: Gabapentin 400 MG CAPSULE PO ×2 (09:34→15:42)
[2022-09-29] MEDS: cloNIDine HCL 0.1 MG TABLET PO ×2 (09:34→19:24)
[2022-09-29] MEDS: Atorvastatin Calcium 10 MG TABLET PO (09:34)
[2022-09-29] MEDS: risperiDONE 1 MG TABLET PO ×2 (09:34→21:23)
[2022-09-29] MEDS: Bumetanide 1 MG TABLET 2 MG PO (09:34)
[2022-09-29] MEDS: Cholecalciferol (Vitamin D3) 25 MCG TABLET PO (09:35)
[2022-09-29] MEDS: Aspirin Enteric Coated 81 MG TABLET.DR PO (09:35)
[2022-09-29] MEDS: hydrALAZINE HCl 25 MG TABLET PO ×2 (09:35→21:23)
[2022-09-29] MEDS: FLUoxetine HCl 20 MG CAPSULE 40 MG PO (09:35)
[2022-09-29] MEDS: Insulin Glargine,Hum.rec.anlog 100 UNIT/ML 10 ML VIAL 50 UNIT SUBCUT ×2 (09:35→21:24)
[2022-09-29] MEDS: Silver Sulfadiazine 1 % Cream 20 GM TUBE 1 APPL TOPICAL ×2 (09:37→21:58)
--- NOTE | 2022-09-29 09:47 | MHC.EDTECH ---
Pt was complaining of back pain. Pt was assisted with a complete bed bath, medicated cream applied and repositioned. Pt tolerated activity well.
[2022-09-29] MEDS: oxyCODONE HCl Immed Release 5 MG TABLET PO ×2 (10:19→19:24)
--- NOTE | 2022-09-29 10:29 | PC.NURSE ---
Pt was c/o pain to back. Physician contacted, pain medication given.
[2022-09-29 13:10] LABS: Glucose, Whole Blood 136 mg/dL (60-115)
--- NOTE | 2022-09-29 13:51 | MHC.CM.ED ---
Patient remains in ER overflow. Physical therapy eval completd. Short term rehab is recommended. No bed offers have been made at this time. Referral broadcasted within 50 miles. Continue to monitor for d/c needs.
[2022-09-29 14:00] VITALS: BP 114/50; PULSE 74; RESP 16; TEMP 36.9; O2SAT 94
--- NOTE | 2022-09-29 15:02 | PC.NURSE ---
Pt ate lunch and dinner 100%.
--- NOTE | 2022-09-29 18:07 | MHC.CM.ED ---
CM attempted to meet with patient to discuss discharge planning, but patient is sound asleep. Will meet with patient when she wakes. [facility] is reviewing, otherwise no bed offers locally. 9 facilities remain outstanding within 50 miles.
[2022-09-29 18:40] LABS: Glucose, Whole Blood 185 mg/dL (60-115)
[2022-09-29] MEDS: Insulin Lispro 100 UNIT/ML 3 ML VIAL SUBCUT ×2 (18:48→21:23)
--- NOTE | 2022-09-29 19:14 | MHC.EDTECH ---
pt ate 100 % of meal ,drank 240 ml fluids ,after dinner ,care given ,linen change ,ghotra bag empty 500 ml
--- NOTE | 2022-09-29 19:23 | MHC.CM.ED ---
CM met with patient in ED overflow. A&Ox3. Lives alone. Active w Garry SHANITAA. 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 Use a walker. Has F/C. Patient is unable to ambulate and cannot care for herself. PT recommends STR. Pt is agreeable at this time to STR. Pt is unvaccinated, which is a barrier to placement. Pt is now willing to receive 1 vaccination. Explained to patient that she would still be considered not fully vaccinated at this point. Will inform provider. Noted swollen R ring finger middle joint with reddened circular area on top of hand. Pt c/o pain. RN notified. ? new. CM spoke with provider about hand and request for vaccination. PCP if Rell Huber and HCP is daughter Tess Muellre ([phone]). Pt is aware that referrals have been placed within 50 miles. Pt is aware that [facility] is reviewing, but that there are not any local bed offers. Pt is aware that CM is continuing to look for STR. CM following for discharge planning.
[2022-09-29] MEDS: Bumetanide 1 MG TABLET PO (19:24)
[2022-09-29] MEDS: Gabapentin 400 MG CAPSULE 800 MG PO (19:24)
[2022-09-29] MEDS: Fluticasone Propionate 100 MCG BLST.W.DEV 2 PUFF INHALE (19:51)
[2022-09-29 19:52] VITALS: PULSE 74; RESP 16; O2SAT 96
[2022-09-29 21:06] VITALS: BP 101/62; PULSE 72; RESP 16; TEMP 36.1; O2SAT 97
--- NOTE | 2022-09-29 21:07 | MHC.EDTECH ---
pt vitals sign taken ,blood sugar check ,pt was reposition off her bottom with pillows .
[2022-09-29 21:08] LABS: Glucose, Whole Blood 217 mg/dL (60-115)
[2022-09-29] MEDS: Nystatin Powder 15 GM BOTTLE 1 APPL TOPICAL (21:23)
[2022-09-29] MEDS: TiZANidine HCL 4 MG TABLET PO (21:23)
--- NOTE | 2022-09-29 22:02 | MHC.EDTECH ---
pt was reposition onto her right side .
--- NOTE | 2022-09-30 02:17 | MHC.EDTECH ---
0200 rounding done ,pt sleeping .
[2022-09-30 06:00] VITALS: BP 96/50; PULSE 78; RESP 16; TEMP 36.2; O2SAT 95
--- NOTE | 2022-09-30 06:00 | MHC.EDTECH ---
0600 rounding done ,vitals sign taken ,fresh ice water given ,and diet adebayo tayla ,pt drank 360 ml fluids ,1000 ml out put empty from Elliott ,pt reposition on left side with pillow under neath bottom .
[2022-09-30 07:39] LABS: Glucose, Whole Blood 69 mg/dL (60-115)
[2022-09-30] MEDS: Fluticasone Propionate 100 MCG BLST.W.DEV 2 PUFF INHALE ×2 (07:40→20:18)
[2022-09-30 07:42] VITALS: PULSE 76; RESP 18; O2SAT 96
[2022-09-30 08:58] VITALS: BP 124/46; PULSE 77; RESP 16; TEMP 36.7; O2SAT 95
[2022-09-30] MEDS: Gabapentin 400 MG CAPSULE PO ×2 (09:07→14:23)
[2022-09-30] MEDS: amLODIPine Besylate 5 MG TABLET PO (09:07)
[2022-09-30] MEDS: risperiDONE 1 MG TABLET PO ×2 (09:07→20:51)
[2022-09-30] MEDS: FLUoxetine HCl 20 MG CAPSULE 40 MG PO (09:07)
[2022-09-30] MEDS: Aspirin Enteric Coated 81 MG TABLET.DR PO (09:08)
[2022-09-30] MEDS: Atorvastatin Calcium 10 MG TABLET PO (09:08)
[2022-09-30] MEDS: oxyCODONE HCl Immed Release 5 MG TABLET PO ×3 (09:08→20:49)
[2022-09-30] MEDS: Cholecalciferol (Vitamin D3) 25 MCG TABLET PO (09:08)
[2022-09-30] MEDS: cloNIDine HCL 0.1 MG TABLET PO ×2 (09:08→20:49)
[2022-09-30] MEDS: hydrALAZINE HCl 25 MG TABLET PO ×2 (09:08→20:51)
[2022-09-30] MEDS: Bumetanide 1 MG TABLET 2 MG PO (09:08)
[2022-09-30] MEDS: Insulin Glargine,Hum.rec.anlog 100 UNIT/ML 10 ML VIAL 50 UNIT SUBCUT ×2 (09:09→20:52)
[2022-09-30] MEDS: Silver Sulfadiazine 1 % Cream 20 GM TUBE 1 APPL TOPICAL ×2 (09:09→20:53)
[2022-09-30] MEDS: Nystatin Powder 15 GM BOTTLE 1 APPL TOPICAL ×2 (09:09→20:53)
--- NOTE | 2022-09-30 09:51 | MHC.CM.ED ---
Patient remains in ER overflow. [facility] doesn't have a bed. But expect female beds to open this week. [facility] PASRR Level 2 obtained and uploaded into [facility]. Continue to monitor for d/c needs.
[2022-09-30 13:30] LABS: Glucose, Whole Blood 82 mg/dL (60-115)
[2022-09-30 14:12] VITALS: BP 102/52; PULSE 76; RESP 16; TEMP 36.5; O2SAT 95
[2022-09-30 18:15] LABS: Glucose, Whole Blood 126 mg/dL (60-115)
--- NOTE | 2022-09-30 18:43 | PC.NURSE ---
Pt clam and cooperative throughout day. Was given pain medication when c/o back pain. Repositioned q2hrs. VSS.
[2022-09-30 20:24] VITALS: PULSE 76; RESP 16; O2SAT 96
[2022-09-30 20:40] LABS: Glucose, Whole Blood 193 mg/dL (60-115)
[2022-09-30] MEDS: TiZANidine HCL 4 MG TABLET PO (20:50)
[2022-09-30] MEDS: Bumetanide 1 MG TABLET PO (20:50)
[2022-09-30] MEDS: Insulin Lispro 100 UNIT/ML 3 ML VIAL SUBCUT (20:52)
[2022-09-30] MEDS: Gabapentin 400 MG CAPSULE 800 MG PO (20:52)
--- NOTE | 2022-09-30 22:16 | PC.NURSE ---
Pt aox3. Breaths are even, regular, and unlabored. Reports back pain, 10/10. Pt is unable to reposition self in the bed. Reports increased weakness and pain. Purulent drainage noted on bed pad and dressing on tailbone. Dressing removed, wound care provided as ordered, and new dressing applied. Bed pad changed. Pt repositioned to a comfortable position. Mediated as ordered and tolerated well. Pt noted to be sleeping at the bedside in no apparent distress. 1600cc of dark yellow urine emptied from urine collection bag. Care is ongoing.
[2022-09-30 23:29] VITALS: RESP 18
[2022-10-01 05:53] VITALS: BP 95/40; PULSE 81; RESP 17; TEMP 36.9; O2SAT 94
[2022-10-01 07:40] LABS: Glucose, Whole Blood 70 mg/dL (60-115)
[2022-10-01 09:57] VITALS: BP 119/51; PULSE 79; RESP 18; TEMP 36.6; O2SAT 93
[2022-10-01] MEDS: FLUoxetine HCl 20 MG CAPSULE 40 MG PO (10:22)
[2022-10-01] MEDS: Cholecalciferol (Vitamin D3) 25 MCG TABLET PO (10:23)
[2022-10-01] MEDS: oxyCODONE HCl Immed Release 5 MG TABLET PO ×4 (10:23→23:22)
[2022-10-01] MEDS: Aspirin Enteric Coated 81 MG TABLET.DR PO (10:23)
[2022-10-01] MEDS: amLODIPine Besylate 5 MG TABLET PO (10:24)
[2022-10-01] MEDS: Atorvastatin Calcium 10 MG TABLET PO (10:24)
[2022-10-01] MEDS: hydrALAZINE HCl 25 MG TABLET PO ×2 (10:24→22:03)
[2022-10-01] MEDS: Gabapentin 400 MG CAPSULE PO ×2 (10:24→14:25)
[2022-10-01] MEDS: Insulin Glargine,Hum.rec.anlog 100 UNIT/ML 10 ML VIAL 50 UNIT SUBCUT ×2 (10:24→23:18)
[2022-10-01] MEDS: Bumetanide 1 MG TABLET 2 MG PO (10:25)
[2022-10-01] MEDS: risperiDONE 1 MG TABLET PO ×2 (10:30→22:05)
[2022-10-01] MEDS: Nystatin Powder 15 GM BOTTLE 1 APPL TOPICAL ×2 (11:45→23:24)
[2022-10-01] MEDS: Silver Sulfadiazine 1 % Cream 20 GM TUBE 1 APPL TOPICAL (11:45)
[2022-10-01 13:12] LABS: Glucose, Whole Blood 116 mg/dL (60-115)
[2022-10-01 14:37] VITALS: BP 126/45; PULSE 86; RESP 16; O2SAT 94
--- NOTE | 2022-10-01 16:00 | MHC.EDTECH ---
this pct assumed care of pt at 1500 ,pt sleeping .
--- NOTE | 2022-10-01 17:27 | MHC.EDTECH ---
pt awake and was reposition on left side with pillows .
[2022-10-01 18:06] LABS: Glucose, Whole Blood 160 mg/dL (60-115)
[2022-10-01] MEDS: Insulin Lispro 100 UNIT/ML 3 ML VIAL SUBCUT (18:09)
--- NOTE | 2022-10-01 18:32 | MHC.EDTECH ---
pt ate 50 % of dinner ,pt needed help with eating due to fingers hurting .drank 240 ml diet adebayo tayla .
[2022-10-01 20:55] LABS: Glucose, Whole Blood 166 mg/dL (60-115)
[2022-10-01] MEDS: Fluticasone Propionate 100 MCG BLST.W.DEV 2 PUFF INHALE (21:27)
[2022-10-01 21:31] VITALS: PULSE 86; RESP 16; O2SAT 96
[2022-10-01] MEDS: Bumetanide 1 MG TABLET PO (22:04)
[2022-10-01] MEDS: Gabapentin 400 MG CAPSULE 800 MG PO (22:05)
[2022-10-01 22:15] VITALS: BP 99/44; PULSE 83; RESP 19; TEMP 37; O2SAT 95
[2022-10-01] MEDS: TiZANidine HCL 4 MG TABLET PO (23:21)
--- NOTE | 2022-10-02 01:56 | PC.NURSE ---
Patient AOx3, no respiratory distress noted. She was medicated for c/o achy dull pain 8/10 to right knee with effective result. She declined wound care, insulin humalog stating she will only take the long acting and her wound care was just done. Incontinent care, tuning and reposition x2 persons assist provided on shift. Patient appeared upset earlier on the shift using cursed words during nursing assessment but is sleeping comfortably in bed at this time. Clear urine noted in collection bag. No concerns or complaints voiced at this time. Care is on going.
[2022-10-02] MEDS: Fluticasone Propionate 100 MCG BLST.W.DEV 2 PUFF INHALE (07:30)
[2022-10-02 07:32] VITALS: PULSE 83; RESP 18; O2SAT 95
[2022-10-02 07:34] LABS: Glucose, Whole Blood 106 mg/dL (60-115)
[2022-10-02 08:03] VITALS: BP 106/58; PULSE 86; RESP 16; TEMP 37.1; O2SAT 97
[2022-10-02] MEDS: risperiDONE 1 MG TABLET PO (08:22)
[2022-10-02] MEDS: FLUoxetine HCl 20 MG CAPSULE 40 MG PO (08:22)
[2022-10-02] MEDS: Cholecalciferol (Vitamin D3) 25 MCG TABLET PO (08:23)
[2022-10-02] MEDS: hydrALAZINE HCl 25 MG TABLET PO (08:23)
[2022-10-02] MEDS: Aspirin Enteric Coated 81 MG TABLET.DR PO (08:23)
[2022-10-02] MEDS: Atorvastatin Calcium 10 MG TABLET PO (08:23)
[2022-10-02] MEDS: amLODIPine Besylate 5 MG TABLET PO (08:23)
[2022-10-02] MEDS: Insulin Glargine,Hum.rec.anlog 100 UNIT/ML 10 ML VIAL 50 UNIT SUBCUT (08:23)
[2022-10-02] MEDS: Bumetanide 1 MG TABLET 2 MG PO (08:23)
[2022-10-02] MEDS: Gabapentin 400 MG CAPSULE PO ×2 (08:23→16:08)
[2022-10-02] MEDS: Nystatin Powder 15 GM BOTTLE 1 APPL TOPICAL (08:30)
--- NOTE | 2022-10-02 08:46 | MHC.CM.PN ---
Addendum entered by Paulette Mcallister 10/02/22 14:35: [facility] IS OFFERING A BED TODAY MDS COMPLETED AND SENT TO [facility] BLS TRANSPORT SCHEDULED FOR 1700 HOURS WITH REBECCA Narayanan Note: PT AWAITING STR PLACEMENT [facility] FOLLOWING UPDATES SENT AWAITING RESPONSE REGARDING BED STATUS
--- NOTE | 2022-10-02 09:39 | PC.NURSE ---
Pt was A&O x3, but vague. No complaints this morning, but refused breakfast. Emptied ghotra bag of 600ml.
[2022-10-02 13:28] LABS: Glucose, Whole Blood 82 mg/dL (60-115)
[2022-10-02 16:06] VITALS: BP 104/57; PULSE 99; RESP 20; TEMP 36.9; O2SAT 95
[2022-10-02 17:25] LABS: Glucose, Whole Blood 100 mg/dL (60-115)
--- NOTE | 2022-10-02 17:50 | MHC.EDTECH ---
Assist nurse boost patient up in bed and reposition onto to right side.
== END 2022-10-02 18:39 | disposition skilled nursing facility (03) ==
PROVIDERS: Physician Assistant; Emergency Provider Student in an Organized Health Care Education/Training Program; PCP Internal Medicine
DX: R62.7 Adult failure to thrive (principal); R53.81 Other malaise; R53.1 Weakness; R60.0 Localized edema; L98.411 Non-pressure chronic ulcer of buttock limited to breakdown of skin; L98.421 Non-pressure chronic ulcer of back limited to breakdown of skin; L97.121 Non-pressure chronic ulcer of left thigh limited to breakdown of skin; L97.111 Non-pressure chronic ulcer of right thigh limited to breakdown of skin; Z20.822 Contact with and (suspected) exposure to COVID-19; Z20.828 Contact with and (suspected) exposure to other viral communicable diseases; E11.22 Type 2 diabetes mellitus with diabetic chronic kidney disease; I13.0 Hypertensive heart and chronic kidney disease with heart failure and stage 1 through stage 4 chronic kidney disease, or unspecified chronic kidney disease; N17.9 Acute kidney failure, unspecified; N18.30 Chronic kidney disease, stage 3 unspecified; I50.9 Heart failure, unspecified; E78.5 Hyperlipidemia, unspecified; F12.90 Cannabis use, unspecified, uncomplicated; E66.9 Obesity, unspecified; Z68.43 Body mass index [BMI] 50.0-59.9, adult; Z87.891 Personal history of nicotine dependence; Z79.82 Long term (current) use of aspirin; Z79.899 Other long term (current) drug therapy; Z79.02 Long term (current) use of antithrombotics/antiplatelets; Z79.4 Long term (current) use of insulin
CPT/HCPCS: 0241U; 36415; 73130; 80048; 80053; 81001; 82947; 85025; 87086; 94640; 97162; 99285

== ENCOUNTER 2022-12-06 00:15 | Emergency (ER) | payer MEDICAID, SELFPAY ==
[2022-12-06 00:20] VITALS: BP 132/84; BP 138/45; PULSE 75; PULSE 83; RESP 18; TEMP 36.1; O2SAT 96; O2SAT 97; BMI 40.7
--- NOTE | 2022-12-06 02:39 | ED_ITS ---
HPI - Extremity Problem General Chief complaint: Extremity Problem Stated complaint: RT Hand Pain Time Seen by Provider: 12/06/22 01:51 History of Present Illness HPI Narrative: Patient is a 62-year-old female presents today having pain in both hands, both knees. Patient has a history of neuropathy. Been having these kind of pains for months. No systemic complaints. Patient was in rehab for her leg pain and leg weakness. No fever no chills. No diaphoresis. No nausea no vomiting. No chest pain no shortness of breath no diaphoresis. Patient claims when she uses the hand it feels tight. It happens bilaterally. Related Data Home Medications Medication Instructions Recorded Confirmed albuterol sulfate 90 mcg/actuation 2 puff inhalation Q4H PRN Dyspnea 11/23/20 09/28/22 aerosol inhaler (ProAir HFA) aspirin 81 mg tablet,delayed 81 mg PO DAILY 11/23/20 09/28/22 release fluoxetine 40 mg capsule 40 mg PO DAILY 11/23/20 09/28/22 fluticasone propionate 110 2 puff inhalation BID 11/23/20 09/28/22 mcg/actuation HFA aerosol inhaler (Flovent HFA) metoprolol succinate 50 mg 50 mg PO DAILY 11/23/20 09/28/22 tablet,extended release 24 hr simvastatin 20 mg tablet 20 mg PO BEDTIME 11/23/20 09/28/22 tizanidine 4 mg tablet 4 mg PO BEDTIME 12/11/20 09/28/22 bumetanide 2 mg tablet 1 tab PO DAILY 06/07/21 09/28/22 cholecalciferol (vitamin D3) 25 1 cap PO DAILY 06/07/21 09/28/22 mcg (1,000 unit) capsule meclizine 25 mg tablet 25 mg PO TID PRN Dizziness 06/07/21 09/28/22 risperidone 1 mg tablet 1 tab PO BID 04/20/22 09/28/22 blood sugar diagnostic (MitchellStyle #10 ea 06/25/22 06/25/22 Lite Strips) insulin syringe-needle U-100 1 mL #10 ea 06/25/22 06/25/22 31 gauge x 5/16 (BD Insulin Syringe Ultra-Fine) lancets 28 gauge (FreeStyle #100 ea 06/25/22 06/25/22 Lancets) gabapentin 400 mg capsule 400 mg PO BID@0900,1500 09/08/22 09/28/22 insulin glargine 100 unit/mL 50 unit subcut BID 09/08/22 09/28/22 subcutaneous solution (Lantus U-100 Insulin) nystatin 100,000 unit/gram topical 1 appl topical BID PRN Rash 09/08/22 09/28/22 powder insulin syringe-needle U-100 1 mL 09/27/22 09/28/22 31 gauge x 5/16 (BD Insulin Syringe Ultra-Fine) amlodipine 5 mg tablet 5 mg PO DAILY 09/28/22 09/28/22 gabapentin 800 mg tablet 800 mg PO BEDTIME 09/28/22 09/28/22 isosorbide mononitrate 30 mg 1 tab PO DAILY 09/28/22 09/28/22 tablet,extended release 24 hr oxycodone 5 mg tablet 1 tab PO Q6H PRN moderate pain 09/28/22 09/28/22 spironolactone 25 mg tablet 1 tab PO DAILY 09/28/22 09/28/22 tramadol 50 mg tablet 1 tab PO TID PRN pain 09/28/22 09/28/22 Previous Rx's Medication Instructions Recorded insulin lispro 100 unit/mL See Protocol subcut QIDACHS #1 mL 01/16/21 subcutaneous solution (Humalog U-100 Insulin) clonidine HCl 0.1 mg tablet 0.1 mg PO TID PRN hyperarousal, 04/01/22 anxiety, panic #90 tabs bumetanide 1 mg tablet 1 mg PO BEDTIME #30 tabs 04/08/22 hydralazine 25 mg tablet 25 mg PO BID #60 tabs 04/08/22 docusate sodium 100 mg capsule 100 mg PO DAILY PRN Constipation 04/26/22 #30 caps blood-glucose meter (FreeStyle #1 ea 09/02/22 Lite Meter kit) Allergies Allergy/AdvReac Type Severity Reaction Status Date / Time ibuprofen Allergy Intermediate vommiting, Verified 06/25/22 10:50 itching acetaminophen [Tylenol] Allergy Mild Unknown Verified 06/25/22 10:50 morphine AdvReac Intermediate vomiting Verified 06/25/22 10:50 Review of Systems Review of Systems: No fever no chills no nausea no vomiting no new focal weakness Yes all other systems are reviewed and are negative PMFSH Past Medical History Attestation statement: The following information was validated with the patient. Medical History Abdominal pain Acute on chronic combined systolic and diastolic CHF (congestive heart failure) Adjustment disorder with mixed anxiety and depressed mood FELICIA (acute kidney injury) Asthma Cellulitis of right lower extremity CHF exacerbation Chronic pain Chronic respiratory failure with hypoxia CKD (chronic kidney disease) stage 3, GFR 30-59 ml/min Congestive heart failure Constipation COPD (chronic obstructive pulmonary disease) Decubitus ulcer Depression Diabetes Diabetic neuropathy, painful High cholesterol Hyperglycemia due to diabetes mellitus Hypertension Hypoxia MDD (major depressive disorder), recurrent episode, moderate Morbid obesity NICM (nonischemic cardiomyopathy) Obesity hypoventilation syndrome DANIEL (obstructive sleep apnea) Panic disorder Stasis dermatitis of both legs Stercoral colitis Uncontrolled type 2 diabetes mellitus with hyperglycemia Surgical History Hx of cholecystectomy Family History Family History Mother HTN (hypertension) Diabetes CAD (coronary artery disease) Father HTN (hypertension) Diabetes CAD (coronary artery disease) Maternal Grandmother CAD (coronary artery disease) Social History Social History Household Members: None Household Members Other:: GRANDSON Housing: Apartment 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 Do you presently have visiting nurse or other home services: Yes Alcohol intake: never Patient Tobacco Use Status: Former Tobacco user Quit Date: 1999 Tobacco use type: Cigarette Years Smoked: 38 Second Hand Smoke Exposure: No Substance Use Type: Marijuana Advance Directives: Yes Advance Directives on File: Yes Advance Directives Date on File: 12/19/20 service: No Current occupational status: disabled Physical Exam Vital Signs: Vital Signs: Last Vital Signs Temp 96.9 F 12/06/22 00:20 Pulse 75 12/06/22 00:20 Resp 18 12/06/22 00:20 BP 138/45 L 12/06/22 00:20 Pulse Ox 96 12/06/22 00:20 O2 Del Method Room Air 12/06/22 00:20 BMI result Body Mass Index 40.7 Appearance: Alert. Oriented X3. No acute distress. Eyes: Pupils equal, round and reactive to light. ENT: Pharynx normal. Neck: Normal inspection. Neck supple. No lymph nodes noted. No crepitus CVS: Normal heart rate and rhythm. Pulses normal. Normal S1 and S2 Respiratory: No respiratory distress. Breath sounds normal. No Wheezing. No rales Abdomen: Soft and nontender. No rigidity. No distention. good BS x4 Skin: Skin warm and dry. Normal skin color. Normal skin turgor. Extremities: Positive 2+ pitting edema bilateral extremities. Grossly sensation intact. Motor intact. Examination of the hand. Weak hand grasp bilaterally. Gross motor intact. [id number] intact. Strength grossly intact in the elbow and shoulders bilaterally. Neuro: Oriented X 3. No motor deficit. No sensory deficit. Moving all extermities. No slurred speech Medical Decision Making Medical Decision Making MDM Narrative: Question neuropathy causing patient's symptoms. Symptoms been ongoing for months. Patient has no new symptoms. No fever no chills. Has primary physician Dr. Huber to follow up with. She was in rehab for her leg weakness. Patient is in stable condition. Will discharge home Differential Diagnosis Differential Diagnoses: The differential diagnosis associated with the presentation includes Neuropathy, hyperglycemia, hypoglycemia Chronic Conditions Patient?s care impacted by: Diabetes Social Determinants Patient?s care significantly limited by Social Determinants of Health including: Inadequate housing Discharge Plan Discharge Clinical Impression: Neuropathy Patient Disposition: Home, Self-Care Instructions: Peripheral Neuropathy (ED) Prescriptions: No Action (DME) blood-glucose meter [FreeStyle Lite Meter] Kit See Rx Instructions .Route Qty: 1 0RF Rx Instructions: As directed checks POC 4 X/day insulin lispro [Humalog U-100 Insulin] 100 unit/mL Solution See Protocol subcut QIDACHS Qty: 1 0RF Protocol: Insulin Correction Scale Less than or equal to 110 ---- Give (units): 0 111 to 150 Give (units): 0 151 to 200 Give (units): 2 201 to 250 Give (units): 4 251 to 300 Give (units): 6 301 to 350 Give (units): 8 Greater than 350 Give (units): 10 Call MD if Blood Glucose > : 350 Rx Instructions: sliding scale fluoxetine 40 mg capsule 40 mg PO DAILY metoprolol succinate 50 mg tablet extended release 24 hr 50 mg PO DAILY aspirin 81 mg tablet,delayed release (DR/EC) 81 mg PO DAILY simvastatin 20 mg tablet 20 mg PO BEDTIME albuterol sulfate [ProAir HFA] 90 mcg/actuation HFA aerosol inhaler 2 puff inhalation Q4H PRN (Reason: Dyspnea) fluticasone propionate [Flovent HFA] 110 mcg/actuation HFA aerosol inhaler 2 puff inhalation BID tizanidine 4 mg Tablet 4 mg PO BEDTIME bumetanide 2 mg tablet 1 tab PO DAILY cholecalciferol (vitamin D3) 25 mcg (1,000 unit) capsule 1 cap PO DAILY meclizine 25 mg Tablet 25 mg PO TID PRN (Reason: Dizziness) docusate sodium 100 mg Capsule 100 mg PO DAILY PRN (Reason: Constipation) Qty: 30 0RF gabapentin 400 mg Capsule 400 mg PO BID@0900,1500 nystatin 100,000 unit/gram Powder 1 appl TOPICAL BID PRN (Reason: Rash) Protocol: Apply to: Apply to: AFFECTED AREA Rx Instructions: apply to groin area insulin glargine [Lantus U-100 Insulin] 100 unit/mL solution 50 unit subcut BID (DME) insulin syringe-needle U-100 [BD Insulin Syringe Ultra-Fine] 1 mL 31 gauge x 5/16 syringe MISCELLANEOUS QID isosorbide mononitrate 30 mg tablet extended release 24 hr 1 tab PO DAILY amlodipine 5 mg Tablet 5 mg PO DAILY tramadol 50 mg tablet 1 tab PO TID PRN (Reason: pain) spironolactone 25 mg tablet 1 tab PO DAILY gabapentin 800 mg Tablet 800 mg PO BEDTIME oxycodone 5 mg tablet 1 tab PO Q6H PRN (Reason: moderate pain) clonidine HCl 0.1 mg Tablet 0.1 mg PO TID PRN (Reason: hyperarousal, anxiety, panic) Qty: 90 0RF Protocol: Hold for SBP< HOLD for SBP < : 90 hydralazine 25 mg Tablet 25 mg PO BID Qty: 60 0RF Protocol: Hold for SBP< HOLD for SBP < : 90 bumetanide 1 mg Tablet 1 mg PO BEDTIME Qty: 30 0RF Protocol: Hold for SBP< HOLD for SBP < : 90 risperidone 1 mg tablet 1 tab PO BID (DME) FreeStyle Lite Strips Strip See Rx Instructions .ROUTE BID Qty: 10 Rx Instructions: As directed (DME) lancets [FreeStyle Lancets] 28 gauge misc See Rx Instructions .ROUTE QID Qty: 100 Rx Instructions: As directed (DME) insulin syringe-needle U-100 [BD Insulin Syringe Ultra-Fine] 1 mL 31 gauge x 5/16 syringe See Rx Instructions .ROUTE QID Qty: 10 Rx Instructions: As directed Referrals: Tavo Huber MD [Primary Care Provider] - 12/08/22
[2022-12-06 03:23] LABS: Glucose, Whole Blood 62 mg/dL (60-115)
[2022-12-06 03:23] LABS: Glucose, Whole Blood 90 mg/dL (60-115)
== END 2022-12-06 03:22 | disposition home or self-care (01) ==
PROVIDERS: Emergency Provider Emergency Medicine Emergency Medical Services; PCP Internal Medicine
DX: E11.40 Type 2 diabetes mellitus with diabetic neuropathy, unspecified (principal); Z79.4 Long term (current) use of insulin; R60.0 Localized edema
CPT/HCPCS: 82947; 99282; 99283

== ENCOUNTER 2022-12-10 12:42 | Outpatient (REF) | payer MEDICAID, SELFPAY ==
[2022-12-10 13:36] LABS: MANUAL DIFF FLAG NO
[2022-12-10 13:38] LABS: Appearance Urine Clear; Color Urine Yellow; Glucose Urine UA Negative (Negative); Leukocyte Esterase Urine Moderate (2+) (Negative); Nitrite Urine Positive (Negative); PH 5.5 (5.0-9.0); Specific Gravity - Urine 1.015 (1.005-1.025); UMIC TRIGGER UACC YES; Urine Blood Negative (Negative); Urine Ketones Negative (Negative); Urine Protein 100 (2+) mg/dL (Neg-Trace)
[2022-12-10 13:44] LABS: Basophils Percent Auto 0.2 % (0-2); Eosinophils Absolute Auto 0.1 X10*3/uL (0.0-0.4); Eosinophils Percent Auto 1.1 % (0-4); Hematocrit 30.5 % (37.0-47.0); Hemoglobin 9.2 g/dl (12.0-16.0); Imm Gran Abs Auto 0.05 X10*3/uL (0.00-0.03); Imm Gran Pct Auto 0.4 % (0.0-0.4); Lymphocytes Absolute Auto 1.3 X10*3/uL (1.2-4.9); Lymphocytes Percent Auto 11.6 % (20-40); Mean Corpuscular HGB Conc 30.2 g/dl (31.0-35.0); Mean Corpuscular Hemoglobin 27.6 pg (27.0-33.0); Mean Corpuscular Volume 91.6 fL (80.0-98.0); Monocytes Absolute Auto 0.9 X10*3/uL (0.1-1.2); Monocytes Percent Auto 7.7 % (2-11); Neutrophils Absolute Auto 8.9 x10*3/uL (2.0-8.3); Platelet Count 194 X10*3/uL (160-400); Red Blood Count 3.33 X10*6/uL (4.20-5.50); Red Cell Distribution Width 15.9 % (11.0-16.0); White Blood Count 11.3 X10*3/uL (4.8-10.8)
[2022-12-10 13:44] LABS: Bacteria Urine 4+ (None Seen); Hyaline Casts Urine 0-2 /LPF (0-2); RBC Urine 0-2 /HPF (0-2); UACC Culture Trigger YES; WBC Urine 21-50 /HPF (0-5)
[2022-12-10 14:12] LABS: Estimated Average Glucose 111 mg/dL; Hemoglobin A1C 92.6548 umol/L; Hemoglobin A1c % 5.5 %
[2022-12-10 15:58] LABS: Alanine Aminotransferase 8 U/L (0-31); Albumin Level 3.8 g/dL (3.5-5.0); Alkaline Phosphatase 63 U/L (39-117); Anion Gap 14 (12-20); Aspartate Amino Transferase 8 U/L (5-31); Bilirubin Total 0.3 mg/dL (0.0-1.0); Blood Urea Nitrogen 32 mg/dL (9-16); Calcium 8.5 mg/dL (8.4-10.2); Carbon Dioxide 25 mmol/L (22-29); Chloride 112 mmol/L (96-108); Estimated Glomerular Filt Rate 37; Glucose Random 68 mg/dL (60-115); Potassium 4.7 mmol/L (3.3-5.1); Sodium 146 mmol/L (135-145); Total Protein 6.5 g/dL (6.5-8.0)
== END 2022-12-10 12:43 | disposition home or self-care (01) ==
LOC: HO.10HDL 12:42
PROVIDERS: Visit Provider Internal Medicine
DX: R30.0 Dysuria (principal); E11.9 Type 2 diabetes mellitus without complications
CPT/HCPCS: 36415; 80053; 81001; 83036; 85025; 87086; 87088; 87186

== ENCOUNTER 2022-12-16 20:50 | Emergency (ER) | payer MEDICAID, SELFPAY ==
[2022-12-16 20:56] VITALS: BP 110/70; BP 125/52; PULSE 73; PULSE 96; RESP 16; TEMP 36.8; O2SAT 95; BMI 49.3
--- NOTE | 2022-12-16 21:17 | ED.ANXIETY ---
HPI - Anxiety General Chief Complaint: Anxiety Stated Complaint: ANXIETY Time Seen by Provider: 12/16/22 21:08 Source: patient Mode of arrival: EMS Limitations: no limitations History of Present Illness HPI narrative: Patient comes in the emergency room complaining of anxiety. Patient states that all day she has been having anxiety, panic attacks, crying inconsolably. Patient denies SI or HI. Patient requested something for anxiety. Patient states that she has no triggers. Patient is feels like crying and feeling anxious. Related Data Home Medications Medication Instructions Recorded Confirmed albuterol sulfate 90 mcg/actuation 2 puff inhalation Q4H PRN Dyspnea 11/23/20 09/28/22 aerosol inhaler (ProAir HFA) aspirin 81 mg tablet,delayed 81 mg PO DAILY 11/23/20 09/28/22 release fluoxetine 40 mg capsule 40 mg PO DAILY 11/23/20 09/28/22 fluticasone propionate 110 2 puff inhalation BID 11/23/20 09/28/22 mcg/actuation HFA aerosol inhaler (Flovent HFA) metoprolol succinate 50 mg 50 mg PO DAILY 11/23/20 09/28/22 tablet,extended release 24 hr simvastatin 20 mg tablet 20 mg PO BEDTIME 11/23/20 09/28/22 tizanidine 4 mg tablet 4 mg PO BEDTIME 12/11/20 09/28/22 bumetanide 2 mg tablet 1 tab PO DAILY 06/07/21 09/28/22 cholecalciferol (vitamin D3) 25 1 cap PO DAILY 06/07/21 09/28/22 mcg (1,000 unit) capsule meclizine 25 mg tablet 25 mg PO TID PRN Dizziness 06/07/21 09/28/22 risperidone 1 mg tablet 1 tab PO BID 04/20/22 09/28/22 blood sugar diagnostic (FreeStyle #10 ea 06/25/22 06/25/22 Lite Strips) insulin syringe-needle U-100 1 mL #10 ea 06/25/22 06/25/22 31 gauge x 5/16 (BD Insulin Syringe Ultra-Fine) lancets 28 gauge (FreeStyle #100 ea 06/25/22 06/25/22 Lancets) gabapentin 400 mg capsule 400 mg PO BID@0900,1500 09/08/22 09/28/22 insulin glargine 100 unit/mL 50 unit subcut BID 09/08/22 09/28/22 subcutaneous solution (Lantus U-100 Insulin) nystatin 100,000 unit/gram topical 1 appl topical BID PRN Rash 09/08/22 09/28/22 powder insulin syringe-needle U-100 1 mL 09/27/22 09/28/22 31 gauge x 5/16 (BD Insulin Syringe Ultra-Fine) amlodipine 5 mg tablet 5 mg PO DAILY 09/28/22 09/28/22 gabapentin 800 mg tablet 800 mg PO BEDTIME 09/28/22 09/28/22 isosorbide mononitrate 30 mg 1 tab PO DAILY 09/28/22 09/28/22 tablet,extended release 24 hr oxycodone 5 mg tablet 1 tab PO Q6H PRN moderate pain 09/28/22 09/28/22 spironolactone 25 mg tablet 1 tab PO DAILY 09/28/22 09/28/22 tramadol 50 mg tablet 1 tab PO TID PRN pain 09/28/22 09/28/22 Previous Rx's Medication Instructions Recorded insulin lispro 100 unit/mL See Protocol subcut QIDACHS #1 mL 01/16/21 subcutaneous solution (Humalog U-100 Insulin) clonidine HCl 0.1 mg tablet 0.1 mg PO TID PRN hyperarousal, 04/01/22 anxiety, panic #90 tabs bumetanide 1 mg tablet 1 mg PO BEDTIME #30 tabs 04/08/22 hydralazine 25 mg tablet 25 mg PO BID #60 tabs 04/08/22 docusate sodium 100 mg capsule 100 mg PO DAILY PRN Constipation 04/26/22 #30 caps blood-glucose meter (FreeStyle #1 ea 09/02/22 Lite Meter kit) lorazepam 0.5 mg tablet (Ativan) 0.5 mg PO BID PRN anxiety #6 tabs 12/16/22 Allergies Allergy/AdvReac Type Severity Reaction Status Date / Time ibuprofen Allergy Intermediate vommiting, Verified 06/25/22 10:50 itching acetaminophen [Tylenol] Allergy Mild Unknown Verified 06/25/22 10:50 morphine AdvReac Intermediate vomiting Verified 06/25/22 10:50 Review of Systems Review of Systems: Constitutional : No Weight loss, No Fever, No Chills, No Night Sweats, No Fatigue, No Malaise ENT/Mouth : No Hearing loss, No Ear Pain, No Nasal Congestion, No Sinus Pain, No Hoarseness, No sore throat, No Rhinorrhea, No Swallowing Difficulty Eyes: No Eye Pain, No Swelling, No Redness, No Foreign Body, No Discharge, No Vision Changes Cardiovascular : No Chest Pain, No SOB, No Dyspnea on Exertion, No Orthopnea, No Edema, No Palpitations Respiratory : No Cough, No Sputum, No Wheezing, No Smoke Exposure, No Dyspnea Gastrointestinal : No Nausea, No Vomiting, No Diarrhea, No Constipation, No abdominal Pain, No Hematochezia, No Melena Genitourinary : no irregular bleeding, No Dysuria, No Urinary Frequency, No Hematuria, No Urinary Incontinence, No Urgency, No Flank Pain, No Urinary Flow Changes, No Hesitancy Musculoskeletal : No joint pain, No Myalgias, No Joint Swelling Skin : No Skin Lesions, No rash Neuro : No Weakness, No Numbness, No Paresthesias, No Loss of Consciousness, No Dizziness, No Headache Psych : Complaining of anxiety, no SI or HI Heme/Lymph: No Bruising, No Bleeding,No Lymphadenopathy Endocrine : No Polyuria, No Polydipsia, No Temperature Intolerance PMFSH Past Medical History Medical History Abdominal pain Acute on chronic combined systolic and diastolic CHF (congestive heart failure) Adjustment disorder with mixed anxiety and depressed mood FELICIA (acute kidney injury) Asthma Cellulitis of right lower extremity CHF exacerbation Chronic pain Chronic respiratory failure with hypoxia CKD (chronic kidney disease) stage 3, GFR 30-59 ml/min Congestive heart failure Constipation COPD (chronic obstructive pulmonary disease) Decubitus ulcer Depression Diabetes Diabetic neuropathy, painful High cholesterol Hyperglycemia due to diabetes mellitus Hypertension Hypoxia MDD (major depressive disorder), recurrent episode, moderate Morbid obesity NICM (nonischemic cardiomyopathy) Obesity hypoventilation syndrome DANIEL (obstructive sleep apnea) Panic disorder Stasis dermatitis of both legs Stercoral colitis Uncontrolled type 2 diabetes mellitus with hyperglycemia Surgical History Hx of cholecystectomy Family History Family History Mother HTN (hypertension) Diabetes CAD (coronary artery disease) Father HTN (hypertension) Diabetes CAD (coronary artery disease) Maternal Grandmother CAD (coronary artery disease) Social History Social History Household Members: None Household Members Other:: GRANDSON Housing: Apartment 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 Do you presently have visiting nurse or other home services: Yes Alcohol intake: never Patient Tobacco Use Status: Former Tobacco user Quit Date: 1999 Tobacco use type: Cigarette Years Smoked: 38 Second Hand Smoke Exposure: No Substance Use Type: Marijuana Advance Directives Date on File: 12/19/20 service: No Current occupational status: disabled Physical Exam Vital Signs: Vital Signs: Last Vital Signs Temp 98.2 F 12/16/22 20:56 Pulse 73 12/16/22 20:56 Resp 16 12/16/22 20:56 BP 125/52 L 12/16/22 20:56 Pulse Ox 95 12/16/22 20:56 O2 Del Method Room Air 12/16/22 20:56 BMI result Body Mass Index 49.3 Const: Other: Appearance: Alert. Oriented X3. No acute distress. Eyes: Pupils equal, round and reactive to light. ENT: Pharynx normal. Neck: Normal inspection. Neck supple. No lymph nodes noted. No crepitus CVS: Normal heart rate and rhythm. Pulses normal. Normal S1 and S2 Respiratory: No respiratory distress. Breath sounds normal. No Wheezing. No rales Abdomen: Soft and nontender. No rigidity. No distention. Skin: Skin warm and dry. Normal skin color. Normal skin turgor. Extremities: No lower extremity edema. No Lacerations. No Rash Neuro: Oriented X 3. No motor deficit. No sensory deficit. Moving all extremities. No slurred speech. CN 2 through 12 grossly intact Psych: calm, cooperative, seems anxious Medical Decision Making Medical Decision Making MDM Narrative: -patient was given 1 dose of Ativan, denies any other symptoms. -discussed with the patient that patient will likely need therapy in an outpatient basis, we will give her a small prescription of Ativan but this is just temporary, patient needs long-term treatment guided by her PCP/psychiatry. Discharge Plan Discharge Clinical Impression: Anxiety Patient Disposition: Home, Self-Care Instructions: Anxiety (ED) Additional Instructions: Please follow-up with your primary care physician tomorrow. If you have any worsening or new symptoms, please return to the emergency room or call 911 Prescriptions: New lorazepam [Ativan] 0.5 mg tablet 0.5 mg PO BID PRN (Reason: anxiety) Qty: 6 0RF No Action (DME) blood-glucose meter [FreeStyle Lite Meter] Kit See Rx Instructions .Route Qty: 1 0RF Rx Instructions: As directed checks POC 4 X/day insulin lispro [Humalog U-100 Insulin] 100 unit/mL Solution See Protocol subcut QIDACHS Qty: 1 0RF Protocol: Insulin Correction Scale Less than or equal to 110 ---- Give (units): 0 111 to 150 Give (units): 0 151 to 200 Give (units): 2 201 to 250 Give (units): 4 251 to 300 Give (units): 6 301 to 350 Give (units): 8 Greater than 350 Give (units): 10 Call MD if Blood Glucose > : 350 Rx Instructions: sliding scale fluoxetine 40 mg capsule 40 mg PO DAILY metoprolol succinate 50 mg tablet extended release 24 hr 50 mg PO DAILY aspirin 81 mg tablet,delayed release (DR/EC) 81 mg PO DAILY simvastatin 20 mg tablet 20 mg PO BEDTIME albuterol sulfate [ProAir HFA] 90 mcg/actuation HFA aerosol inhaler 2 puff inhalation Q4H PRN (Reason: Dyspnea) fluticasone propionate [Flovent HFA] 110 mcg/actuation HFA aerosol inhaler 2 puff inhalation BID tizanidine 4 mg Tablet 4 mg PO BEDTIME bumetanide 2 mg tablet 1 tab PO DAILY cholecalciferol (vitamin D3) 25 mcg (1,000 unit) capsule 1 cap PO DAILY meclizine 25 mg Tablet 25 mg PO TID PRN (Reason: Dizziness) docusate sodium 100 mg Capsule 100 mg PO DAILY PRN (Reason: Constipation) Qty: 30 0RF gabapentin 400 mg Capsule 400 mg PO BID@0900,1500 nystatin 100,000 unit/gram Powder 1 appl TOPICAL BID PRN (Reason: Rash) Protocol: Apply to: Apply to: AFFECTED AREA Rx Instructions: apply to groin area insulin glargine [Lantus U-100 Insulin] 100 unit/mL solution 50 unit subcut BID (DME) insulin syringe-needle U-100 [BD Insulin Syringe Ultra-Fine] 1 mL 31 gauge x 5/16 syringe MISCELLANEOUS QID isosorbide mononitrate 30 mg tablet extended release 24 hr 1 tab PO DAILY amlodipine 5 mg Tablet 5 mg PO DAILY tramadol 50 mg tablet 1 tab PO TID PRN (Reason: pain) spironolactone 25 mg tablet 1 tab PO DAILY gabapentin 800 mg Tablet 800 mg PO BEDTIME oxycodone 5 mg tablet 1 tab PO Q6H PRN (Reason: moderate pain) clonidine HCl 0.1 mg Tablet 0.1 mg PO TID PRN (Reason: hyperarousal, anxiety, panic) Qty: 90 0RF Protocol: Hold for SBP< HOLD for SBP < : 90 hydralazine 25 mg Tablet 25 mg PO BID Qty: 60 0RF Protocol: Hold for SBP< HOLD for SBP < : 90 bumetanide 1 mg Tablet 1 mg PO BEDTIME Qty: 30 0RF Protocol: Hold for SBP< HOLD for SBP < : 90 risperidone 1 mg tablet 1 tab PO BID (DME) FreeStyle Lite Strips Strip See Rx Instructions .ROUTE BID Qty: 10 Rx Instructions: As directed (DME) lancets [FreeStyle Lancets] 28 gauge misc See Rx Instructions .ROUTE QID Qty: 100 Rx Instructions: As directed (DME) insulin syringe-needle U-100 [BD Insulin Syringe Ultra-Fine] 1 mL 31 gauge x 5/16 syringe See Rx Instructions .ROUTE QID Qty: 10 Rx Instructions: As directed
[2022-12-16] MEDS: LORazepam 1 MG TABLET PO (21:39)
[2022-12-16 22:27] VITALS: BP 115/38; PULSE 72; RESP 20; TEMP 36.7; O2SAT 96
== END 2022-12-16 22:28 | disposition home or self-care (01) ==
PROVIDERS: Emergency Provider Emergency Medicine; PCP Internal Medicine
DX: F41.9 Anxiety disorder, unspecified (principal); E11.22 Type 2 diabetes mellitus with diabetic chronic kidney disease; I13.0 Hypertensive heart and chronic kidney disease with heart failure and stage 1 through stage 4 chronic kidney disease, or unspecified chronic kidney disease; N18.9 Chronic kidney disease, unspecified; I50.9 Heart failure, unspecified; E78.00 Pure hypercholesterolemia, unspecified; Z79.899 Other long term (current) drug therapy; Z79.02 Long term (current) use of antithrombotics/antiplatelets; Z79.82 Long term (current) use of aspirin; Z79.4 Long term (current) use of insulin
CPT/HCPCS: 99282; 99283

== ENCOUNTER 2022-12-27 16:42 | Emergency (ER) | payer MEDICAID, SELFPAY ==
--- NOTE | ~2022-12-27 | XR_ITS ---
EXAMINATION: XR HAND, RIGHT CLINICAL INFORMATION: Cellulitis evaluate for subcutaneous emphysema COMPARISON: X-rays of the right hand September 2022. TECHNIQUE: PA, lateral, and oblique views of the right hand. FINDINGS: There is mild prominence of soft tissues similar to prior. There is no soft tissue gas. There is arterial calcification. Bone and joints are unremarkable. XR/XR hand RT min 3V IMPRESSION: Mild prominence of soft tissues slightly more prominent than prior radiograph September 2012 This could reflect normal variation or edema/cellulitis. No soft tissue gas.
[2022-12-27 16:48] VITALS: BP 150/90; PULSE 98; O2SAT 96
[2022-12-27 16:54] VITALS: BP 137/44; PULSE 91; RESP 18; TEMP 36.6; O2SAT 97; BMI 43.1
--- NOTE | 2022-12-27 17:40 | ED.EXTPRO ---
HPI - Extremity Problem General Chief complaint: Extremity Problem Stated complaint: leg edema Time Seen by Provider: 12/27/22 17:27 Source: patient Mode of arrival: ambulatory Limitations: no limitations History of Present Illness HPI Narrative: A 62-year-old female abdomen for evaluation of right hand pain and redness. Patient's symptoms started 1 day ago, patient declined any trauma to the, no suspicion for injury, wound, or bite to the right hand. No fever, no chills, complaining of redness, hotness, tenderness of the right hand, patient normally walks with a walker at home unable because the severe right and pain. Related Data Home Medications Medication Instructions Recorded Confirmed albuterol sulfate 90 mcg/actuation 2 puff inhalation Q4H PRN Dyspnea 11/23/20 12/27/22 aerosol inhaler (ProAir HFA) aspirin 81 mg tablet,delayed 81 mg PO DAILY 11/23/20 12/27/22 release fluoxetine 40 mg capsule 40 mg PO DAILY 11/23/20 12/27/22 fluticasone propionate 110 2 puff inhalation BID 11/23/20 12/27/22 mcg/actuation HFA aerosol inhaler (Flovent HFA) metoprolol succinate 50 mg 50 mg PO DAILY 11/23/20 12/27/22 tablet,extended release 24 hr simvastatin 20 mg tablet 20 mg PO BEDTIME 11/23/20 12/27/22 bumetanide 2 mg tablet 1 tab PO DAILY 06/07/21 12/27/22 cholecalciferol (vitamin D3) 25 1 cap PO DAILY 06/07/21 12/27/22 mcg (1,000 unit) capsule risperidone 1 mg tablet 1 tab PO BID 04/20/22 12/27/22 blood sugar diagnostic (FreeStyle #10 ea 06/25/22 06/25/22 Lite Strips) insulin syringe-needle U-100 1 mL #10 ea 06/25/22 06/25/22 31 gauge x 5/16 (BD Insulin Syringe Ultra-Fine) lancets 28 gauge (FreeStyle #100 ea 06/25/22 06/25/22 Lancets) gabapentin 400 mg capsule 400 mg PO BID@0900,1500 09/08/22 12/27/22 insulin glargine 100 unit/mL 50 unit subcut BID 09/08/22 12/27/22 subcutaneous solution (Lantus U-100 Insulin) nystatin 100,000 unit/gram topical 1 appl topical BID PRN Rash 09/08/22 12/27/22 powder insulin syringe-needle U-100 1 mL 09/27/22 09/28/22 31 gauge x 5/16 (BD Insulin Syringe Ultra-Fine) gabapentin 800 mg tablet 800 mg PO BEDTIME 09/28/22 12/27/22 isosorbide mononitrate 30 mg 1 tab PO DAILY 09/28/22 12/27/22 tablet,extended release 24 hr spironolactone 25 mg tablet 1 tab PO DAILY 09/28/22 12/27/22 amlodipine 10 mg tablet 10 mg PO DAILY 12/27/22 12/27/22 buspirone 10 mg tablet 10 mg PO BID 12/27/22 12/27/22 docusate sodium 100 mg capsule 100 mg PO DAILY 12/27/22 12/27/22 haloperidol 2 mg tablet 2 mg PO BEDTIME 12/27/22 12/27/22 Previous Rx's Medication Instructions Recorded insulin lispro 100 unit/mL See Protocol subcut QIDACHS #1 mL 01/16/21 subcutaneous solution (Humalog U-100 Insulin) clonidine HCl 0.1 mg tablet 0.1 mg PO TID PRN hyperarousal, 04/01/22 anxiety, panic #90 tabs bumetanide 1 mg tablet 1 mg PO BEDTIME #30 tabs 04/08/22 hydralazine 25 mg tablet 25 mg PO BID #60 tabs 04/08/22 blood-glucose meter (FreeStyle #1 ea 09/02/22 Lite Meter kit) lorazepam 0.5 mg tablet (Ativan) 0.5 mg PO BID PRN anxiety #6 tabs 12/16/22 doxycycline hyclate 100 mg tablet 100 mg PO BID #14 tabs 12/27/22 Allergies Allergy/AdvReac Type Severity Reaction Status Date / Time ibuprofen Allergy Intermediate vommiting, Verified 06/25/22 10:50 itching acetaminophen [Tylenol] Allergy Mild Unknown Verified 06/25/22 10:50 morphine AdvReac Intermediate vomiting Verified 06/25/22 10:50 Review of Systems Review of Systems: All other systems are reviewed and are negative Constitutional: Reports as per HPI and Reports no additional constitutional complaints Eyes: Reports as per HPI and Reports no additional eye complaints Reports system reviewed and no additional complaints, except as documented Cardiovascular: Reports as per HPI and Reports no additional cardiovascular complaints Respiratory: Reports as per HPI and Reports no additional respiratory complaints Gastrointestinal: Reports as per HPI and Reports no additional gastrointestinal complaints Genitourinary: Reports no additional female genitourinary complaints Musculoskeletal: Reports no additional musculoskeletal complaints Skin/Breast: Reports system reviewed and no additional complaints, except as docu Psychiatric: Reports no additional psychiatric complaints Endocrine: Reports no additional endocrine complaints Hematologic/Lymphatic: Reports no additional hematologic/lymphatic complaints Allergic/Immunologic: Reports no additional allergic/immunologic complaints Reports system reviewed and no additional complaints, except as documented and Reports Abnormal speech present [facility] Past Medical History Medical History Abdominal pain Acute on chronic combined systolic and diastolic CHF (congestive heart failure) Adjustment disorder with mixed anxiety and depressed mood FELICIA (acute kidney injury) Asthma Cellulitis of right lower extremity CHF exacerbation Chronic pain Chronic respiratory failure with hypoxia CKD (chronic kidney disease) stage 3, GFR 30-59 ml/min Congestive heart failure Constipation COPD (chronic obstructive pulmonary disease) Decubitus ulcer Depression Diabetes Diabetic neuropathy, painful High cholesterol Hyperglycemia due to diabetes mellitus Hypertension Hypoxia MDD (major depressive disorder), recurrent episode, moderate Morbid obesity NICM (nonischemic cardiomyopathy) Obesity hypoventilation syndrome DANIEL (obstructive sleep apnea) Panic disorder Stasis dermatitis of both legs Stercoral colitis Uncontrolled type 2 diabetes mellitus with hyperglycemia Surgical History Hx of cholecystectomy Family History Family History Mother HTN (hypertension) Diabetes CAD (coronary artery disease) Father HTN (hypertension) Diabetes CAD (coronary artery disease) Maternal Grandmother CAD (coronary artery disease) Social History Social History Household Members: None Household Members Other:: GRANDSON Housing: Apartment Housing 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 Do you presently have visiting nurse or other home services: Yes Alcohol intake: never Patient Tobacco Use Status: Former Tobacco user Quit Date: 1999 Tobacco use type: Cigarette Years Smoked: 38 Second Hand Smoke Exposure: No Substance Use Type: Marijuana Advance Directives: Yes Advance Directives on File: Yes Advance Directives Date on File: 12/19/20 service: No Current occupational status: disabled Physical Exam Vital Signs: Vital Signs: Last Vital Signs Temp 98.8 F 12/28/22 00:54 Pulse 70 12/28/22 00:54 Resp 17 12/28/22 00:54 BP 151/67 H 12/28/22 00:54 Pulse Ox 96 12/28/22 00:54 O2 Del Method Room Air 12/28/22 00:54 BMI result Body Mass Index 43.1 Vital signs have been reviewed as appeared to be correct. Blood pressure normal. Heart rate normal. Respiration rate normal. Temperature normal. Oxygen saturation normal. Appearance: Alert. Oriented X3. No acute distress. Head: Normal external exam. Normocephalic. Atraumatic. No Childs signs noted. No raccoon eyes noted Eyes: PERRLA. EOMI. Conjunctiva and sclera normal. Eyelids normal. ENT: TM's Normal. Pharynx normal. Uvula midline. Moist mucous membranes. No trismus noted. No drooling noted. No muffled voice noted. Neck: Normal inspection. Neck supple. FROM. No adenopathy. Thyroid Normal. No meningeal signs. No neck mass noted. CVS: Normal heart rate and rhythm. Heart sound normal. No murmurs noted. Pulses normal throughout. Respiratory: No respiratory distress. Painless inspiration. Breath sounds normal. No wheezes/rales/rhonchi noted. Chest nontender. No accessory muscle usage noted or decreased air movement noted. Abdomen: Soft and nontender. Bowel sounds normal in all 4 quadrants. No distention noted. No organomegaly noted. No visible injury noted. Back: No CVA tenderness. Full range of motion noted. Skin: Skin warm and dry. Normal skin color. Normal skin turgor. No rashes/lesions/lacerations noted. Extremities: Right hand exam: Redness, hotness, tenderness over dorsum of the right hand, no deformity. Neuro: Oriented X 3. Cranial nerve exam: II-XII are grossly intact No motor deficit. No sensory deficit. Reflexes normal. Course Course Course Narrative: Right hand cellulitis, patient do not have history of MRSA, do not meet criteria for SIRS. The case discussed with Dr. Martin who recommended not to admit the patient and discharge home, Will discharge on doxycycline. Reevaluation(s) Reevaluation #1: Patient received Zosyn and vancomycin IV in the emergency department start have rashes and itching in both arms with no difficulty breathing or voice change, patient was given Benadryl and Solu-Medrol felt better will continue with the plan to discharge on oral doxycycline. Time: 01:39 Medications Administered Discontinued Medications Generic Name Dose Route Start Last Admin Trade Name Freq PRN Reason Stop Dose Admin Diphenhydramine HCl 25 mg 12/28/22 01:13 12/28/22 01:16 Diphenhydramine Hcl 50 Mg/Ml Vial IVPUSH 12/28/22 01:14 25 mg ONCE ONE Administration Sodium Chloride 1,000 mls @ 999 mls/hr 12/27/22 17:36 12/27/22 20:00 Ns IV 12/27/22 18:36 Infused .Q1H1M ONE Infusion Piperacillin Sod/Tazobactam 50 mls @ 100 mls/hr 12/27/22 17:36 12/27/22 20:00 Sod 3.375 gm/ Sodium Chloride IV 12/27/22 18:05 Infused ONCE ONE Infusion Vancomycin HCl 2,000 mg in 500 mls @ 250 mls/hr 12/27/22 17:36 12/28/22 00:42 Vancomycin/Ns IV 12/27/22 19:35 Infused ONCE ONE Infusion Morphine Sulfate 2 mg 12/27/22 22:05 12/27/22 22:17 Morphine Sulfate 2 Mg/Ml Cartridge IVPUSH 12/27/22 22:06 2 mg ONCE ONE Administration Protocol Medical Decision Making Differential Diagnosis Differential Diagnoses: The differential diagnosis associated with the presentation includes (Right hand cellulitis, SIRS, electrolyte abnormalities, severe anemia.) Admission/Observation Consideration of admission/observation: Escalation of care including admission/observation considered Consult Healthcare Provider Management of the patient was discussed with: Hospitalist (Dr. Martin) Lab Data MDM Lab Attestation statement: I reviewed the patient's lab results. 12/27/22 18:09 12/27/22 18:09 Labs: Lab Results 12/27/22 12/27/22 12/27/22 Range/Units 18:00 18:09 18:09 WBC 10.3 (4.8-10.8) X10*3/uL RBC 2.93 L (4.20-5.50) X10*6/uL Hgb 8.2 L (12.0-16.0) g/dl Hct 26.4 L (37.0-47.0) % MCV 90.1 (80.0-98.0) fL MCH 28.0 (27.0-33.0) pg MCHC 31.1 (31.0-35.0) g/dl RDW 15.4 (11.0-16.0) % Plt Count 239 (160-400) X10*3/uL MPV 8.7 L (9.4-12.3) fL Immature Gran % (Auto) 0.6 H (0.0-0.4) % Neut % (Auto) 79.6 H (45-73) % Lymph % (Auto) 11.1 L (20-40) % [place] % (Auto) 6.6 (2-11) % Eos % (Auto) 1.8 (0-4) % Baso % (Auto) 0.3 (0-2) % Lymph # (Auto) 1.1 L (1.2-4.9) X10*3/uL [place] # (Auto) 0.7 (0.1-1.2) X10*3/uL Eos # (Auto) 0.2 (0.0-0.4) X10*3/uL Baso # (Auto) 0.0 (0.0-0.2) X10*3/uL Abs Immat Gran (auto) 0.06 H (0.00-0.03) X10*3/uL Absolute Neuts (auto) 8.2 (2.0-8.3) x10*3/uL Absolute Nucleated RBC 0.000 (0.0-0.012) X10*3/uL Nucleated RBC % (auto) 0.0 (0.0-0.2) /100WBC Sodium 145 (135-145) mmol/L Potassium 5.2 H (3.3-5.1) mmol/L Chloride 111 H (96-108) mmol/L Carbon Dioxide 27 (22-29) mmol/L Anion Gap 12 (12-20) BUN 21 H (9-16) mg/dL Creatinine 0.98 (0.5-1.4) mg/dL Estim Creat Clear Calc 74.5 Estimated GFR 58 POC Glucose 65 (60-115) mg/dL Random Glucose 71 (60-115) mg/dL Lactic Acid (0.5-2.0) mmol/L Calcium 8.3 L (8.4-10.2) mg/dL Total Bilirubin 0.2 (0.0-1.0) mg/dL Direct Bilirubin < 0.2 (0.0-0.5) mg/dL AST 9 (5-31) U/L ALT 7 (0-31) U/L Alkaline Phosphatase 66 (39-117) U/L Troponin I High Sens (<3.5-17.0) ng/L Total Protein 6.1 L (6.5-8.0) g/dL Albumin 3.3 L (3.5-5.0) g/dL Lipase 4 L (8-78) U/L Urine Color Urine Appearance Urine pH (5.0-9.0) Ur Specific [place] (1.005-1.025) Urine Protein (Neg-Trace) mg/dL Urine Glucose (UA) (Negative) mg/dL Urine Ketones (Negative) mg/dL Urine Blood (Negative) Urine Nitrite (Negative) Ur Leukocyte Esterase (Negative) 12/27/22 12/27/22 12/27/22 Range/Units 18:09 18:09 18:30 WBC (4.8-10.8) X10*3/uL RBC (4.20-5.50) X10*6/uL Hgb (12.0-16.0) g/dl Hct (37.0-47.0) % MCV (80.0-98.0) fL MCH (27.0-33.0) pg MCHC (31.0-35.0) g/dl RDW (11.0-16.0) % Plt Count (160-400) X10*3/uL MPV (9.4-12.3) fL Immature Gran % (Auto) (0.0-0.4) % Neut % (Auto) (45-73) % Lymph % (Auto) (20-40) % [place] % (Auto) (2-11) % Eos % (Auto) (0-4) % Baso % (Auto) (0-2) % Lymph # (Auto) (1.2-4.9) X10*3/uL [place] # (Auto) (0.1-1.2) X10*3/uL Eos # (Auto) (0.0-0.4) X10*3/uL Baso # (Auto) (0.0-0.2) X10*3/uL Abs Immat Gran (auto) (0.00-0.03) X10*3/uL Absolute Neuts (auto) (2.0-8.3) x10*3/uL Absolute Nucleated RBC (0.0-0.012) X10*3/uL Nucleated RBC % (auto) (0.0-0.2) /100WBC Sodium (135-145) mmol/L Potassium (3.3-5.1) mmol/L Chloride (96-108) mmol/L Carbon Dioxide (22-29) mmol/L Anion Gap (12-20) BUN (9-16) mg/dL Creatinine (0.5-1.4) mg/dL Estim Creat Clear Calc Estimated GFR POC Glucose 66 (60-115) mg/dL Random Glucose (60-115) mg/dL Lactic Acid 0.6 (0.5-2.0) mmol/L Calcium (8.4-10.2) mg/dL Total Bilirubin (0.0-1.0) mg/dL Direct Bilirubin (0.0-0.5) mg/dL AST (5-31) U/L ALT (0-31) U/L Alkaline Phosphatase (39-117) U/L Troponin I High Sens 5.4 (<3.5-17.0) ng/L Total Protein (6.5-8.0) g/dL Albumin (3.5-5.0) g/dL Lipase (8-78) U/L Urine Color Urine Appearance Urine pH (5.0-9.0) Ur Specific [place] (1.005-1.025) Urine Protein (Neg-Trace) mg/dL Urine Glucose (UA) (Negative) mg/dL Urine Ketones (Negative) mg/dL Urine Blood (Negative) Urine Nitrite (Negative) Ur Leukocyte Esterase (Negative) 12/27/22 12/27/22 12/27/22 Range/Units 18:58 19:02 22:13 WBC (4.8-10.8) X10*3/uL RBC (4.20-5.50) X10*6/uL Hgb (12.0-16.0) g/dl Hct (37.0-47.0) % MCV (80.0-98.0) fL MCH (27.0-33.0) pg MCHC (31.0-35.0) g/dl RDW (11.0-16.0) % Plt Count (160-400) X10*3/uL MPV (9.4-12.3) fL Immature Gran % (Auto) (0.0-0.4) % Neut % (Auto) (45-73) % Lymph % (Auto) (20-40) % [place] % (Auto) (2-11) % Eos % (Auto) (0-4) % Baso % (Auto) (0-2) % Lymph # (Auto) (1.2-4.9) X10*3/uL [place] # (Auto) (0.1-1.2) X10*3/uL Eos # (Auto) (0.0-0.4) X10*3/uL Baso # (Auto) (0.0-0.2) X10*3/uL Abs Immat Gran (auto) (0.00-0.03) X10*3/uL Absolute Neuts (auto) (2.0-8.3) x10*3/uL Absolute Nucleated RBC (0.0-0.012) X10*3/uL Nucleated RBC % (auto) (0.0-0.2) /100WBC Sodium (135-145) mmol/L Potassium (3.3-5.1) mmol/L Chloride (96-108) mmol/L Carbon Dioxide (22-29) mmol/L Anion Gap (12-20) BUN (9-16) mg/dL Creatinine (0.5-1.4) mg/dL Estim Creat Clear Calc Estimated GFR POC Glucose 71 109 (60-115) mg/dL Random Glucose (60-115) mg/dL Lactic Acid (0.5-2.0) mmol/L Calcium (8.4-10.2) mg/dL Total Bilirubin (0.0-1.0) mg/dL Direct Bilirubin (0.0-0.5) mg/dL AST (5-31) U/L ALT (0-31) U/L Alkaline Phosphatase (39-117) U/L Troponin I High Sens (<3.5-17.0) ng/L Total Protein (6.5-8.0) g/dL Albumin (3.5-5.0) g/dL Lipase (8-78) U/L Urine Color Yellow Urine Appearance Clear Urine pH 8.5 (5.0-9.0) Ur Specific [place] 1.015 (1.005-1.025) Urine Protein Trace (Neg-Trace) mg/dL Urine Glucose (UA) Negative (Negative) mg/dL Urine Ketones Negative (Negative) mg/dL Urine Blood Negative (Negative) Urine Nitrite Negative (Negative) Ur Leukocyte Esterase Negative (Negative) Independent Interpretation I performed an independent interpretation of an: Plain X-Ray (Right hand: Subcutaneous edema, no free air) Radiology Impression Discussion of test interpretation with radiology: I have reviewed the radiologist's reading. Discharge Plan Discharge Clinical Impression: Cellulitis of hand, right Patient Disposition: Home, Self-Care Instructions: Cellulitis (ED) Prescriptions: New doxycycline hyclate 100 mg tablet 100 mg PO BID Qty: 14 0RF No Action (DME) blood-glucose meter [FreeStyle Lite Meter] Kit See Rx Instructions .Route Qty: 1 0RF Rx Instructions: As directed checks POC 4 X/day insulin lispro [Humalog U-100 Insulin] 100 unit/mL Solution See Protocol subcut QIDACHS Qty: 1 0RF Protocol: Insulin Correction Scale Less than or equal to 110 ---- Give (units): 0 111 to 150 Give (units): 0 151 to 200 Give (units): 2 201 to 250 Give (units): 4 251 to 300 Give (units): 6 301 to 350 Give (units): 8 Greater than 350 Give (units): 10 Call MD if Blood Glucose > : 350 Rx Instructions: sliding scale fluoxetine 40 mg capsule 40 mg PO DAILY metoprolol succinate 50 mg tablet extended release 24 hr 50 mg PO DAILY aspirin 81 mg tablet,delayed release (DR/EC) 81 mg PO DAILY simvastatin 20 mg tablet 20 mg PO BEDTIME albuterol sulfate [ProAir HFA] 90 mcg/actuation HFA aerosol inhaler 2 puff inhalation Q4H PRN (Reason: Dyspnea) fluticasone propionate [Flovent HFA] 110 mcg/actuation HFA aerosol inhaler 2 puff inhalation BID bumetanide 2 mg tablet 1 tab PO DAILY cholecalciferol (vitamin D3) 25 mcg (1,000 unit) capsule 1 cap PO DAILY gabapentin 400 mg Capsule 400 mg PO BID@0900,1500 nystatin 100,000 unit/gram Powder 1 appl TOPICAL BID PRN (Reason: Rash) Protocol: Apply to: Apply to: under breasts, around groin Rx Instructions: apply to groin area, and under breasts insulin glargine [Lantus U-100 Insulin] 100 unit/mL solution 50 unit subcut BID (DME) insulin syringe-needle U-100 [BD Insulin Syringe Ultra-Fine] 1 mL 31 gauge x 5/16 syringe MISCELLANEOUS QID isosorbide mononitrate 30 mg tablet extended release 24 hr 1 tab PO DAILY spironolactone 25 mg tablet 1 tab PO DAILY gabapentin 800 mg Tablet 800 mg PO BEDTIME clonidine HCl 0.1 mg Tablet 0.1 mg PO TID PRN (Reason: hyperarousal, anxiety, panic) Qty: 90 0RF Protocol: Hold for SBP< HOLD for SBP < : 90 hydralazine 25 mg Tablet 25 mg PO BID Qty: 60 0RF Protocol: Hold for SBP< HOLD for SBP < : 90 bumetanide 1 mg Tablet 1 mg PO BEDTIME Qty: 30 0RF Protocol: Hold for SBP< HOLD for SBP < : 90 risperidone 1 mg tablet 1 tab PO BID lorazepam [Ativan] 0.5 mg tablet 0.5 mg PO BID PRN (Reason: anxiety) Qty: 6 0RF buspirone 10 mg Tablet 10 mg PO BID amlodipine 10 mg Tablet 10 mg PO DAILY docusate sodium 100 mg capsule 100 mg PO DAILY haloperidol [Haldol] 2 mg Tablet 2 mg PO BEDTIME (DME) FreeStyle Lite Strips Strip See Rx Instructions .ROUTE BID Qty: 10 Rx Instructions: As directed (DME) lancets [FreeStyle Lancets] 28 gauge misc See Rx Instructions .ROUTE QID Qty: 100 Rx Instructions: As directed (DME) insulin syringe-needle U-100 [BD Insulin Syringe Ultra-Fine] 1 mL 31 gauge x 5/16 syringe See Rx Instructions .ROUTE QID Qty: 10 Rx Instructions: As directed Referrals: Tavo Huber MD [Primary Care Provider] -
[2022-12-27 17:43] VITALS: BP 127/45; PULSE 83; RESP 16; TEMP 36.9; O2SAT 98
[2022-12-27] MEDS: 0.9 % Sodium Chloride 1,000 ML 999 ML IV (18:13)
[2022-12-27 18:16] LABS: MANUAL DIFF FLAG NO
[2022-12-27 18:17] LABS: Basophils Percent Auto 0.3 % (0-2); Eosinophils Absolute Auto 0.2 X10*3/uL (0.0-0.4); Eosinophils Percent Auto 1.8 % (0-4); Hematocrit 26.4 % (37.0-47.0); Hemoglobin 8.2 g/dl (12.0-16.0); Imm Gran Abs Auto 0.06 X10*3/uL (0.00-0.03); Imm Gran Pct Auto 0.6 % (0.0-0.4); Lymphocytes Absolute Auto 1.1 X10*3/uL (1.2-4.9); Lymphocytes Percent Auto 11.1 % (20-40); Mean Corpuscular HGB Conc 31.1 g/dl (31.0-35.0); Mean Corpuscular Volume 90.1 fL (80.0-98.0); Mean Platelet Volume 8.7 fL (9.4-12.3); Monocytes Absolute Auto 0.7 X10*3/uL (0.1-1.2); Monocytes Percent Auto 6.6 % (2-11); Neutrophils Absolute Auto 8.2 x10*3/uL (2.0-8.3); Neutrophils Percent Auto 79.6 % (45-73); Platelet Count 239 X10*3/uL (160-400); Red Blood Count 2.93 X10*6/uL (4.20-5.50); Red Cell Distribution Width 15.4 % (11.0-16.0); White Blood Count 10.3 X10*3/uL (4.8-10.8)
[2022-12-27] MEDS: Piperacillin Sodium/Tazobactam 3.375 GM in 0.9 % Sodium Chloride 50 ML IV (18:17)
--- NOTE | 2022-12-27 18:30 | PC.NURSE ---
alert and oriented, resp even and unlabored. right hand swelling, no reported injury. iv established, labs obtained. iv fluids/antibiotics infusing. poc 64, orange juice given
[2022-12-27 18:32] VITALS: BP 142/70; PULSE 94; RESP 16; TEMP 37.1; O2SAT 100
[2022-12-27 18:33] LABS: Alanine Aminotransferase 7 U/L (0-31); Albumin Level 3.3 g/dL (3.5-5.0); Alkaline Phosphatase 66 U/L (39-117); Anion Gap 12 (12-20); Aspartate Amino Transferase 9 U/L (5-31); Bilirubin Direct < 0.2 mg/dL (0.0-0.5); Bilirubin Total 0.2 mg/dL (0.0-1.0); Blood Urea Nitrogen 21 mg/dL (9-16); Calcium 8.3 mg/dL (8.4-10.2); Carbon Dioxide 27 mmol/L (22-29); Chloride 111 mmol/L (96-108); Creatinine Clr Calc Pharmacy 74.5; Estimated Glomerular Filt Rate 58; Glucose Random 71 mg/dL (60-115); Lipase 4 U/L (8-78); Potassium 5.2 mmol/L (3.3-5.1); Sodium 145 mmol/L (135-145); Total Protein 6.1 g/dL (6.5-8.0)
--- NOTE | 2022-12-27 18:34 | MHC.EDTECH ---
PATIENT BLOOD CULTURE ,LACTIC ACID AND BLOOD DRAWN AND SENT TO LAB ,PT BLOOD SUGAR CHECK IT WAS 66 ,PEPE SALAS AWARE ,PT DRANK ,480 ML ORANGE JUICE ,AND HAD A TUNA FISH SANDWICH ,BLOOD SUGAR RE CHECK IT WAS 67 ,PEPE SALAS AWARE .
[2022-12-27 18:40] LABS: Troponin-I High Sensitivity 5.4 ng/L (<3.5-17.0)
[2022-12-27 18:52] LABS: Lactic Acid 0.6 mmol/L (0.5-2.0)
--- NOTE | 2022-12-27 18:59 | MHC.EDTECH ---
PT DRANK AN ADDITINAL 240 ML AND HAD ANOTHER TUNA FISH SANDWICH ,BLOOD SUGAR RE CHECK IT'S 72 ,RN MARITZA AWARE ,URINE SAMPLE COLLECTED AND SENT TO LAB ,WARM BLANKET GIVEN .
[2022-12-27 19:10] LABS: Appearance Urine Clear; Color Urine Yellow; Glucose Urine UA Negative (Negative); Leukocyte Esterase Urine Negative (Negative); Nitrite Urine Negative (Negative); PH 8.5 (5.0-9.0); Specific Gravity - Urine 1.015 (1.005-1.025); Urine Blood Negative (Negative); Urine Ketones Negative (Negative); Urine Protein Trace mg/dL (Neg-Trace)
--- NOTE | 2022-12-27 19:12 | PM.EVENT ---
Event Note Date of Service: 12/27/22 Event Note: Was asked to evaluate the patient for cellulitis. Patient states she has right hand erythema, warmth that has been ongoing for 3 weeks, slowly progressive. Patient does not meet sepsis criteria. Cellulitis not extensive. Patient has not tried p.o. antibiotics. Does not meet inpatient criteria for admission. Time Spent With Patient Time: Total time managing care of this patient today ____ minutes.
--- NOTE | 2022-12-27 19:13 | PHA.MEDREC ---
med rec complete, spoke to patients daughter who had recently gone through med list with MD, some changes had been made Pharmacy Consult ? Medication Reconciliation Pharmacy has completed the medication reconciliation.
[2022-12-27 19:42] LABS: Glucose, Whole Blood 66 mg/dL (60-115)
[2022-12-27 19:42] LABS: Glucose, Whole Blood 71 mg/dL (60-115)
[2022-12-27 19:42] LABS: Glucose, Whole Blood 65 mg/dL (60-115)
[2022-12-27] MEDS: vancomycin/NS 2,000 MG/500 ML PLAST..BAG 250 MG IV (21:14)
[2022-12-27 21:19] VITALS: BP 121/40; PULSE 97; RESP 15; TEMP 36.8; O2SAT 95
--- NOTE | 2022-12-27 21:25 | PC.NURSE ---
assumed care of pt no apparent distress vancomycin 2g running VSS resting quietly while watching tv alert and oriented
[2022-12-27 22:00] VITALS: BP 146/65; PULSE 107; RESP 16; TEMP 36.9; O2SAT 98
--- NOTE | 2022-12-27 22:15 | MHC.EDTECH ---
2200 rounding done ,vitals sign taken ,bs check 109 .
[2022-12-27] MEDS: Morphine Sulfate 2 MG/ML CARTRIDGE IVPUSH (22:17)
[2022-12-27 22:19] LABS: Glucose, Whole Blood 109 mg/dL (60-115)
--- NOTE | 2022-12-27 22:24 | PC.NURSE ---
administered morphine 2mg IV push for pain per MAR
--- NOTE | 2022-12-27 22:48 | MHC.EDTECH ---
TP WAS INCONIENT OF URINE ,CARE GIVEN ,BEDDING CHANGE ,WARM BLANKET GIVEN .
[2022-12-28 00:54] VITALS: BP 151/67; PULSE 70; RESP 17; TEMP 37.1; O2SAT 96
--- NOTE | 2022-12-28 01:13 | PC.NURSE ---
per Dr Beard verbal order override 25 mg benadryl IV push d/t pt c/o of itchiness and hives administered
[2022-12-28] MEDS: diphenhydrAMINE HCL 50 MG/ML VIAL 25 MG IVPUSH ×2 (01:16→01:49)
--- NOTE | 2022-12-28 01:49 | PC.NURSE ---
administered 25 mg benadryl IV push d/t continued itchiness and hives verbal order per Dr Beard override
[2022-12-28] MEDS: methylPREDNISolone Sod Succ 125 MG/2 ML VIAL IVPUSH (01:50)
--- NOTE | 2022-12-28 01:50 | PC.NURSE ---
administered 125 solumedrol IV push per MAR
--- NOTE | 2022-12-28 02:00 | PC.NURSE ---
pt states feeling itchiness going away airway has remained patent no c/o dyspnea aox4 daughter at bedside
--- NOTE | 2022-12-28 02:17 | PC.NURSE ---
Discharge instructions given and explained to patient No apparent distress w/c used to help pt out of ED, pt left with daughter aox4 All of pt's questions answered IV cath tip intact upon removal
== END 2022-12-28 02:01 | disposition home or self-care (01) ==
PROVIDERS: Emergency Provider Emergency Medicine; PCP Internal Medicine
DX: L03.113 Cellulitis of right upper limb (principal); R21 Rash and other nonspecific skin eruption; E11.22 Type 2 diabetes mellitus with diabetic chronic kidney disease; I13.0 Hypertensive heart and chronic kidney disease with heart failure and stage 1 through stage 4 chronic kidney disease, or unspecified chronic kidney disease; N18.30 Chronic kidney disease, stage 3 unspecified; I50.9 Heart failure, unspecified; E78.5 Hyperlipidemia, unspecified; F12.90 Cannabis use, unspecified, uncomplicated; E66.9 Obesity, unspecified; Z68.41 Body mass index [BMI] 40.0-44.9, adult; Z87.891 Personal history of nicotine dependence; Z79.4 Long term (current) use of insulin; Z79.899 Other long term (current) drug therapy; Z79.82 Long term (current) use of aspirin; Z79.02 Long term (current) use of antithrombotics/antiplatelets
CPT/HCPCS: 36415; 73130; 80048; 80076; 81003; 82947; 83605; 83690; 84484; 85025; 87040; 92950; 96361; 96365; 96366; 96375; 96376; 99285; J1200; J2270; J2543; J2930; J3370

== ENCOUNTER 2023-01-06 11:11 | Outpatient (RCR) | payer MEDICAID, OTHER, SELFPAY | END 2023-06-03 15:00 | disposition home or self-care (01) | LOC: HO.WCC 11:11 | PROVIDERS: PCP Internal Medicine; Visit Provider Physician Assistant | DX: E11.622 Type 2 diabetes mellitus with other skin ulcer (principal); L98.412 Non-pressure chronic ulcer of buttock with fat layer exposed; E11.620 Type 2 diabetes mellitus with diabetic dermatitis; E11.40 Type 2 diabetes mellitus with diabetic neuropathy, unspecified; I11.0 Hypertensive heart disease with heart failure; I50.9 Heart failure, unspecified; Z87.891 Personal history of nicotine dependence | CPT/HCPCS: 11042; 97597; 99212 ==

== ENCOUNTER 2023-01-23 19:01 | Emergency (ER) | payer OTHER, SELFPAY ==
[2023-01-23 19:06] VITALS: BP 152/80; PULSE 95; O2SAT 96
[2023-01-23 19:16] VITALS: BP 137/57; PULSE 92; RESP 14; TEMP 37; O2SAT 96; BMI 51.4
--- NOTE | 2023-01-23 21:00 | PC.NURSE ---
Pt A&Ox4, reports worsening leg swelling x 1 week, weakness, back pain and non-radiating intermittent chest pressure to middle of chest. Pt denies palpitations or SOB. Lung sounds slightly diminished, BLL edema noted. Pt placed on bedside quality assurance monitor body, EKG obtained and reviewed by provider, IV line placed and blood work obtained and sent to lab.
[2023-01-23 21:55] VITALS: BP 130/58; PULSE 90; RESP 20; O2SAT 95
--- NOTE | 2023-01-23 22:02 | ED.EXTPRO ---
HPI - Extremity Problem General Chief complaint: Extremity Problem Stated complaint: Fluid Retention Time Seen by Provider: 01/23/23 21:02 Source: patient Mode of arrival: EMS History of Present Illness HPI Narrative: 62-year-old female arrives via EMS and reports increased bilateral lower extremity swelling for 1 week but worse today with increased weakness and lower back discomfort. Patient does have a history of CHF, COPD, diabetes, kidney failure, however she otherwise denies any fever, chills, shortness of breath, chest pain/palpitations and denies any GI symptoms. Related Data Home Medications Medication Instructions Recorded Confirmed albuterol sulfate 90 mcg/actuation 2 puff inhalation Q4H PRN Dyspnea 11/23/20 12/27/22 aerosol inhaler (ProAir HFA) aspirin 81 mg tablet,delayed 81 mg PO DAILY 11/23/20 12/27/22 release fluoxetine 40 mg capsule 40 mg PO DAILY 11/23/20 12/27/22 fluticasone propionate 110 2 puff inhalation BID 11/23/20 12/27/22 mcg/actuation HFA aerosol inhaler (Flovent HFA) metoprolol succinate 50 mg 50 mg PO DAILY 11/23/20 12/27/22 tablet,extended release 24 hr simvastatin 20 mg tablet 20 mg PO BEDTIME 11/23/20 12/27/22 bumetanide 2 mg tablet 1 tab PO DAILY 06/07/21 12/27/22 cholecalciferol (vitamin D3) 25 1 cap PO DAILY 06/07/21 12/27/22 mcg (1,000 unit) capsule risperidone 1 mg tablet 1 tab PO BID 04/20/22 12/27/22 blood sugar diagnostic (FreeStyle #10 ea 06/25/22 06/25/22 Lite Strips) insulin syringe-needle U-100 1 mL #10 ea 06/25/22 06/25/22 31 gauge x 5/16 (BD Insulin Syringe Ultra-Fine) lancets 28 gauge (FreeStyle #100 ea 06/25/22 06/25/22 Lancets) gabapentin 400 mg capsule 400 mg PO BID@0900,1500 09/08/22 12/27/22 insulin glargine 100 unit/mL 50 unit subcut BID 09/08/22 12/27/22 subcutaneous solution (Lantus U-100 Insulin) nystatin 100,000 unit/gram topical 1 appl topical BID PRN Rash 09/08/22 12/27/22 powder insulin syringe-needle U-100 1 mL 09/27/22 09/28/22 31 gauge x 5/16 (BD Insulin Syringe Ultra-Fine) gabapentin 800 mg tablet 800 mg PO BEDTIME 09/28/22 12/27/22 isosorbide mononitrate 30 mg 1 tab PO DAILY 09/28/22 12/27/22 tablet,extended release 24 hr spironolactone 25 mg tablet 1 tab PO DAILY 09/28/22 12/27/22 amlodipine 10 mg tablet 10 mg PO DAILY 12/27/22 12/27/22 buspirone 10 mg tablet 10 mg PO BID 12/27/22 12/27/22 docusate sodium 100 mg capsule 100 mg PO DAILY 12/27/22 12/27/22 haloperidol 2 mg tablet 2 mg PO BEDTIME 12/27/22 12/27/22 Previous Rx's Medication Instructions Recorded insulin lispro 100 unit/mL See Protocol subcut QIDACHS #1 mL 01/16/21 subcutaneous solution (Humalog U-100 Insulin) clonidine HCl 0.1 mg tablet 0.1 mg PO TID PRN hyperarousal, 04/01/22 anxiety, panic #90 tabs bumetanide 1 mg tablet 1 mg PO BEDTIME #30 tabs 04/08/22 hydralazine 25 mg tablet 25 mg PO BID #60 tabs 04/08/22 blood-glucose meter (FreeStyle #1 ea 09/02/22 Lite Meter kit) lorazepam 0.5 mg tablet (Ativan) 0.5 mg PO BID PRN anxiety #6 tabs 12/16/22 doxycycline hyclate 100 mg tablet 100 mg PO BID #14 tabs 12/27/22 Allergies Allergy/AdvReac Type Severity Reaction Status Date / Time ibuprofen Allergy Intermediate vommiting, Verified 01/23/23 20:11 itching acetaminophen [Tylenol] Allergy Mild Unknown Verified 01/23/23 20:11 morphine AdvReac Intermediate vomiting Verified 01/23/23 20:11 vancomycin AdvReac Intermediate Itching Verified 01/23/23 20:11 codeine AdvReac Anaphylaxis Verified 01/23/23 19:10 Review of Systems Review of Systems: Pertinent positives and negatives as stated in [facility] Past Medical History Source: nursing notes reviewed Medical History Abdominal pain Acute on chronic combined systolic and diastolic CHF (congestive heart failure) Adjustment disorder with mixed anxiety and depressed mood FELICIA (acute kidney injury) Asthma Cellulitis of right lower extremity CHF exacerbation Chronic pain Chronic respiratory failure with hypoxia CKD (chronic kidney disease) stage 3, GFR 30-59 ml/min Congestive heart failure Constipation COPD (chronic obstructive pulmonary disease) Decubitus ulcer Depression Diabetes Diabetic neuropathy, painful High cholesterol Hyperglycemia due to diabetes mellitus Hypertension Hypoxia MDD (major depressive disorder), recurrent episode, moderate Morbid obesity NICM (nonischemic cardiomyopathy) Obesity hypoventilation syndrome DANIEL (obstructive sleep apnea) Panic disorder Stasis dermatitis of both legs Stercoral colitis Uncontrolled type 2 diabetes mellitus with hyperglycemia Surgical History Hx of cholecystectomy Family History Family History Mother HTN (hypertension) Diabetes CAD (coronary artery disease) Father HTN (hypertension) Diabetes CAD (coronary artery disease) Maternal Grandmother CAD (coronary artery disease) Social History Social History Household Members: None Household Members Other:: GRANDSON Housing: Apartment Housing Other:: with relief man Do you presently have visiting nurse or other home services: Yes Alcohol intake: current Alcohol intake frequency: holidays/special occasions only Patient Tobacco Use Status: Former Tobacco user Quit Date: 1999 Tobacco use type: Cigarette Years Smoked: 38 Smoked in Last 30 Days: No Second Hand Smoke Exposure: No Use of substances other than those prescribed or required for medical reasons: Yes Substance Use Type: Marijuana Substance Use Frequency: Occasionally Advance Directives: Yes Advance Directives on File: Yes Advance Directives Date on File: 12/19/20 Patient : No service: No Current occupational status: disabled Physical Exam Vital Signs: Vital Signs: Last Vital Signs Temp 98.4 F 01/23/23 23:24 Pulse 92 01/23/23 23:24 Resp 15 01/23/23 23:24 BP 120/65 01/23/23 23:24 Pulse Ox 94 01/23/23 23:24 O2 Del Method Room Air 01/23/23 23:24 BMI result Body Mass Index 51.4 VITAL SIGNS: Reviewed. GENERAL: Elevated BMI, chronically ill, in no acute distress. HEAD: Normocephalic/atraumatic EYES: PERRLA, EOMI EARS: Ext canals without abnormality NOSE: Nares patent bilateral OROPHARYNX: no oral lesions noted, posterior pharynx clear, dry mucosa NECK: Supple, no adenopathy LUNGS: Normal breath sounds. No adventitious sounds or accessory muscle use. SpO2<95> CARDIOVASCULAR: Regular rate and rhythm without noted murmurs, no JVD bilateral lower extremity 2+ pitting edema ABDOMEN: Soft, non-tender, non-distended with bowel sounds. MUSCULOSKELETAL: No tenderness, deformities, or effusions noted on gross inspection. EXTREMITIES: No cyanosis, clubbing or edema. SKIN: Inspection of the skin reveals no rashes NEUROLOGIC: Alert and oriented x 4. Strength and sensation to light touch were grossly intact x 4. Medications Administered Discontinued Medications Generic Name Dose Route Start Last Admin Trade Name Freq PRN Reason Stop Dose Admin Sodium Chloride 500 mls @ 999 mls/hr 01/23/23 22:15 01/23/23 23:00 Ns IV 01/23/23 22:45 Infused .Q31M HI Infusion Medical Decision Making Medical Decision Making [facility] Narrative: 2205: 62-year-old female with history and clinical presentation, DDX: CHF exacerbation, FELICIA, MSK, UTI I reviewed all investigations, hematologic indices are chronically stable without leukocytosis/left shift and anemia peers to be without change and likely secondary to underlying CKD. Serial chemistries demonstrate slight improvement of FELICIA although overall chronic in nature. Patient received 500 cc of normal saline which is explained by the upswing in sodium and chloride on the 2nd chemistry study. Otherwise patient has bilateral lower extremities appear to be chronically edematous, BNP is 33 and patient is not tachypneic nor is she hypoxic. She is otherwise discharged home in stable condition with instructions follow-up with primary care provider early next week. Differential Diagnosis Differential Diagnoses: The differential diagnosis associated with the presentation includes Please see the discussion above Admission/Observation Consideration of admission/observation: Escalation of care including admission/observation considered Please see the discussion above Lab Data [facility] Lab Attestation statement: I reviewed the patient's lab results. Please see the discussion above 01/23/23 17:00 01/23/23 19:40 Labs: Lab Results 0701/23/23 01/23/23 Range/Units 17:00 19:40 19:40 WBC 7.8 (4.8-10.8) X10*3/uL RBC 3.16 L (4.20-5.50) X10*6/uL Hgb 8.9 L (12.0-16.0) g/dl Hct 29.1 L (37.0-47.0) % MCV 92.1 (80.0-98.0) fL MCH 28.2 (27.0-33.0) pg MCHC 30.6 L (31.0-35.0) g/dl RDW 15.3 (11.0-16.0) % Plt Count 167 D (160-400) X10*3/uL MPV 9.3 L (9.4-12.3) fL Immature Gran % (Auto) 0.6 H (0.0-0.4) % Neut % (Auto) 76.5 H (45-73) % Lymph % (Auto) 12.3 L (20-40) % [place]soe % (Auto) 8.1 (2-11) % Eos % (Auto) 2.2 (0-4) % Baso % (Auto) 0.3 (0-2) % Lymph # (Auto) 1.0 L (1.2-4.9) X10*3/uL [place] # (Auto) 0.6 (0.1-1.2) X10*3/uL Eos # (Auto) 0.2 (0.0-0.4) X10*3/uL Baso # (Auto) 0.0 (0.0-0.2) X10*3/uL Abs Immat Gran (auto) 0.05 H (0.00-0.03) X10*3/uL Absolute Neuts (auto) 6.0 (2.0-8.3) x10*3/uL Absolute Nucleated RBC 0.000 (0.0-0.012) X10*3/uL Nucleated RBC % (auto) 0.0 (0.0-0.2) /100WBC Sodium 144 (135-145) mmol/L Potassium 4.4 (3.3-5.1) mmol/L Chloride 111 H (96-108) mmol/L Carbon Dioxide 21 L (22-29) mmol/L Anion Gap 16 (12-20) BUN 62 H (9-16) mg/dL Creatinine 1.67 H (0.5-1.4) mg/dL Estim Creat Clear Calc 45.2 Estimated GFR 31 Random Glucose 216 H (60-115) mg/dL Calcium 8.2 L (8.4-10.2) mg/dL Total Bilirubin 0.2 (0.0-1.0) mg/dL AST 15 (5-31) U/L ALT 10 (0-31) U/L Alkaline Phosphatase 63 (39-117) U/L Troponin I High Sens 3.5 (<3.5-17.0) ng/L B-Natriuretic Peptide (<100) pg/mL Total Protein 6.7 (6.5-8.0) g/dL Albumin 3.5 (3.5-5.0) g/dL Urine Color Urine Appearance Urine pH (5.0-9.0) Ur Specific [place] (1.005-1.025) Urine Protein (Neg-Trace) mg/dL Urine Glucose (UA) (Negative) mg/dL Urine Ketones (Negative) mg/dL Urine Blood (Negative) Urine Nitrite (Negative) Ur Leukocyte Esterase (Negative) Urine RBC (0-2) /HPF Urine WBC (0-5) /HPF Ur Squamous Epith Cells (0-2) /HPF Urine Bacteria (None Seen) Hyaline Casts (0-2) /LPF 01/23/23 01/23/23 01/24/23 Range/Units 19:40 22:01 00:07 WBC (4.8-10.8) X10*3/uL RBC (4.20-5.50) X10*6/uL Hgb (12.0-16.0) g/dl Hct (37.0-47.0) % MCV (80.0-98.0) fL MCH (27.0-33.0) pg MCHC (31.0-35.0) g/dl RDW (11.0-16.0) % Plt Count (160-400) X10*3/uL MPV (9.4-12.3) fL Immature Gran % (Auto) (0.0-0.4) % Neut % (Auto) (45-73) % Lymph % (Auto) (20-40) % Bledsoe % (Auto) (2-11) % Eos % (Auto) (0-4) % Baso % (Auto) (0-2) % Lymph # (Auto) (1.2-4.9) X10*3/uL [place] # (Auto) (0.1-1.2) X10*3/uL Eos # (Auto) (0.0-0.4) X10*3/uL Baso # (Auto) (0.0-0.2) X10*3/uL Abs Immat Gran (auto) (0.00-0.03) X10*3/uL Absolute Neuts (auto) (2.0-8.3) x10*3/uL Absolute Nucleated RBC (0.0-0.012) X10*3/uL Nucleated RBC % (auto) (0.0-0.2) /100WBC Sodium 146 H (135-145) mmol/L Potassium 4.1 (3.3-5.1) mmol/L Chloride 114 H (96-108) mmol/L Carbon Dioxide 22 (22-29) mmol/L Anion Gap 14 (12-20) BUN 58 H (9-16) mg/dL Creatinine 1.60 H (0.5-1.4) mg/dL Estim Creat Clear Calc 47.3 Estimated GFR 33 Random Glucose 149 H (60-115) mg/dL Calcium 8.5 (8.4-10.2) mg/dL Total Bilirubin (0.0-1.0) mg/dL AST (5-31) U/L ALT (0-31) U/L Alkaline Phosphatase (39-117) U/L Troponin I High Sens (<3.5-17.0) ng/L B-Natriuretic Peptide 33 (<100) pg/mL Total Protein (6.5-8.0) g/dL Albumin (3.5-5.0) g/dL Urine Color Yellow Urine Appearance Clear Urine pH 5.0 (5.0-9.0) Ur Specific [place] 1.015 (1.005-1.025) Urine Protein Negative (Neg-Trace) mg/dL Urine Glucose (UA) Negative (Negative) mg/dL Urine Ketones Negative (Negative) mg/dL Urine Blood Negative (Negative) Urine Nitrite Negative (Negative) Ur Leukocyte Esterase Trace H (Negative) Urine RBC 0-2 (0-2) /HPF Urine WBC 0-5 (0-5) /HPF Ur Squamous Epith Cells 3-5 (0-2) /HPF Urine Bacteria None Seen (None Seen) Hyaline Casts 0-2 (0-2) /LPF Independent Interpretation I performed an independent interpretation of an: EKG Interpretation: Normal sinus rhythm, HR-89, no STEMI, WA/QRS a grossly within normal limits External Record Review External record reviewed: Outpatient record and Prior outpatient labs Chronic Conditions Patient?s care impacted by: Diabetes and Hypertension Discharge Plan Discharge Clinical Impression: FELICIA (acute kidney injury), CHF (congestive heart failure) Patient Disposition: Home, Self-Care Instructions: Acute Kidney Injury (DC), Heart Failure (ED) Additional Instructions: 1. Resume all home medications as prescribed. 2. Follow-up with your primary care provider by calling the office on Thursday morning to set up an appointment for re-evaluation. Return to the ER for any worsening symptoms. Prescriptions: No Action (DME) blood-glucose meter [FreeStyle Lite Meter] Kit See Rx Instructions .Route Qty: 1 0RF Rx Instructions: As directed checks POC 4 X/day insulin lispro [Humalog U-100 Insulin] 100 unit/mL Solution See Protocol subcut QIDACHS Qty: 1 0RF Protocol: Insulin Correction Scale Less than or equal to 110 ---- Give (units): 0 111 to 150 Give (units): 0 151 to 200 Give (units): 2 201 to 250 Give (units): 4 251 to 300 Give (units): 6 301 to 350 Give (units): 8 Greater than 350 Give (units): 10 Call MD if Blood Glucose > : 350 Rx Instructions: sliding scale fluoxetine 40 mg capsule 40 mg PO DAILY metoprolol succinate 50 mg tablet extended release 24 hr 50 mg PO DAILY aspirin 81 mg tablet,delayed release (DR/EC) 81 mg PO DAILY simvastatin 20 mg tablet 20 mg PO BEDTIME albuterol sulfate [ProAir HFA] 90 mcg/actuation HFA aerosol inhaler 2 puff inhalation Q4H PRN (Reason: Dyspnea) fluticasone propionate [Flovent HFA] 110 mcg/actuation HFA aerosol inhaler 2 puff inhalation BID bumetanide 2 mg tablet 1 tab PO DAILY cholecalciferol (vitamin D3) 25 mcg (1,000 unit) capsule 1 cap PO DAILY gabapentin 400 mg Capsule 400 mg PO BID@0900,1500 nystatin 100,000 unit/gram Powder 1 appl TOPICAL BID PRN (Reason: Rash) Protocol: Apply to: Apply to: under breasts, around groin Rx Instructions: apply to groin area, and under breasts insulin glargine [Lantus U-100 Insulin] 100 unit/mL solution 50 unit subcut BID (DME) insulin syringe-needle U-100 [BD Insulin Syringe Ultra-Fine] 1 mL 31 gauge x 5/16 syringe MISCELLANEOUS QID isosorbide mononitrate 30 mg tablet extended release 24 hr 1 tab PO DAILY spironolactone 25 mg tablet 1 tab PO DAILY gabapentin 800 mg Tablet 800 mg PO BEDTIME clonidine HCl 0.1 mg Tablet 0.1 mg PO TID PRN (Reason: hyperarousal, anxiety, panic) Qty: 90 0RF Protocol: Hold for SBP< HOLD for SBP < : 90 hydralazine 25 mg Tablet 25 mg PO BID Qty: 60 0RF Protocol: Hold for SBP< HOLD for SBP < : 90 bumetanide 1 mg Tablet 1 mg PO BEDTIME Qty: 30 0RF Protocol: Hold for SBP< HOLD for SBP < : 90 risperidone 1 mg tablet 1 tab PO BID lorazepam [Ativan] 0.5 mg tablet 0.5 mg PO BID PRN (Reason: anxiety) Qty: 6 0RF buspirone 10 mg Tablet 10 mg PO BID amlodipine 10 mg Tablet 10 mg PO DAILY docusate sodium 100 mg capsule 100 mg PO DAILY haloperidol [Haldol] 2 mg Tablet 2 mg PO BEDTIME doxycycline hyclate 100 mg tablet 100 mg PO BID Qty: 14 0RF (DME) FreeStyle Lite Strips Strip See Rx Instructions .ROUTE BID Qty: 10 Rx Instructions: As directed (DME) lancets [FreeStyle Lancets] 28 gauge misc See Rx Instructions .ROUTE QID Qty: 100 Rx Instructions: As directed (DME) insulin syringe-needle U-100 [BD Insulin Syringe Ultra-Fine] 1 mL 31 gauge x 5/16 syringe See Rx Instructions .ROUTE QID Qty: 10 Rx Instructions: As directed
[2023-01-23 23:24] VITALS: BP 120/65; PULSE 92; RESP 15; TEMP 36.9; O2SAT 94
--- NOTE | 2023-01-23 23:25 | MHC.EDTECH ---
This tech assumed care of pt at 2300, VS done pt put on purewick and call lopez within reach.
--- NOTE | 2023-01-24 00:14 | PC.NURSE ---
Blood redrawn and sent to lab.
[2023-01-24 02:00] VITALS: BP 138/68; PULSE 92; RESP 16; TEMP 36.8; O2SAT 94
--- NOTE | 2023-01-24 02:54 | PC.NURSE ---
Pt unable to get in contact with daughter for transport home.
--- NOTE | 2023-01-24 03:19 | PC.NURSE ---
T/W spoke to Pt daughter (Tess) #[phone], reports mother wears oxygen but is embarrassed to wear it . Ambulance booked for transport home.
--- NOTE | 2023-01-24 03:54 | PC.NURSE ---
Instructions understood, Pt transported home via [facility] ambulance.
== END 2023-01-24 03:53 | disposition home or self-care (01) ==
PROVIDERS: Emergency Provider Student in an Organized Health Care Education/Training Program
DX: R60.0 Localized edema (principal); I50.9 Heart failure, unspecified; E11.9 Type 2 diabetes mellitus without complications; R94.31 Abnormal electrocardiogram [ECG] [EKG]; R06.02 Shortness of breath; Z87.891 Personal history of nicotine dependence; Z79.899 Other long term (current) drug therapy; Z79.4 Long term (current) use of insulin
CPT/HCPCS: 36415; 80048; 80053; 81001; 83880; 84484; 85025; 93005; 96360; 99284; 99285

== ENCOUNTER 2023-01-28 09:46 | Emergency (ER) | payer OTHER, SELFPAY ==
--- NOTE | ~2023-01-28 | US_ITS ---
EXAMINATION: US VENOUS ULTRASOUND WITH DOPPLER LOWER EXTREMITY, BILATERAL CLINICAL INFORMATION: Bilateral leg swelling. COMPARISON: 09/08/2022 TECHNIQUE: Ultrasound of the deep veins is performed from the hip to the calf with compression sonography and color and pulse Doppler assessment. Spectral analysis with color-flow imaging is performed. FINDINGS: RIGHT: There is normal venous compression and respiratory variation and augmented flow. The visualized common femoral vein, superficial femoral vein, profunda femoral vein, popliteal vein, and the trifurcation region shows no evidence of deep venous thrombosis. There is no significant popliteal fossa cyst. LEFT: There is normal venous compression and respiratory variation and augmented flow. The visualized common femoral vein, superficial femoral vein, profunda femoral vein, popliteal vein, and the trifurcation region shows no evidence of deep venous thrombosis. There is no significant popliteal fossa cyst. If the patient's symptoms persist, followup ultrasound in 5 days 7 days might be of value to exclude proximal propagation from a non-visualized calf vein. Bilateral calf subcutaneous edema. US/US venous duplex LE BI IMPRESSION: No DVT demonstrated in the bilateral lower extremities.
--- NOTE | ~2023-01-28 | XR_ITS ---
EXAMINATION: XR CHEST CLINICAL INFORMATION: Chest pain. COMPARISON: 09/08/2022 TECHNIQUE: Frontal view of the chest was obtained. FINDINGS: The lungs are well expanded. No focal consolidation. No pleural effusion. Cardiac silhouette is unchanged. XR/XR chest 1V IMPRESSION: No acute abnormality.
--- NOTE | ~2023-01-28 | NM_ITS ---
EXAMINATION: PULMONARY PERFUSION STUDY CLINICAL INFORMATION: Chest pain, elevated d-dimer. COMPARISON: No previous lung scan is available for comparison. A radiograph of the chest dated 01/28/2023, the same day as this lung scan, is available for comparison. TECHNIQUE: Following the intravenous injection of 4.0 mCi Tc-99m MAA, the lungs were imaged in the anterior and posterior, left and right lateral and BNEJI, MONTEJO, LPO, and RPO projections using a gamma scintillation camera. FINDINGS: No segmental perfusion defects are present. There is homogeneous distribution of activity bilaterally. There are no focal anatomic appearing perfusion defects present. The cardiac silhouette appears minimally dilated. NM/NM pul perfusion IMPRESSION: Very low probability of pulmonary embolism. Cardiomegaly.
[2023-01-28 09:55] VITALS: BP 109/76; PULSE 88; O2SAT 97
--- NOTE | 2023-01-28 09:55 | ECG_ITS ---
Test Reason : CHEST PAIN Blood Pressure : / mmHG Vent. Rate : 081 BPM Atrial Rate : 081 BPM P-R Int : 164 ms QRS Dur : 098 ms QT Int : 424 ms P-R-T Axes : 062 019 044 degrees QTc Int : 492 ms Sinus rhythm with occasional Premature ventricular complexes Prolonged QT Abnormal ECG When compared with ECG of 23-JAN-2023 19:47, Premature ventricular complexes are now Present Referred By: Generic ED Physician Electronically Signed By:GARTH RECINOS MD
[2023-01-28 10:01] VITALS: BP 100/36; PULSE 81; RESP 16; TEMP 36.4; O2SAT 95; BMI 52.6
--- NOTE | 2023-01-28 11:50 | ED.CHESTPAIN ---
HPI - Chest Pain General Chief Complaint: Chest Pain Stated Complaint: ble edema/pain days,cp this am, per ems Time Seen by Provider: 01/28/23 11:20 Source: patient and old records reviewed Mode of arrival: EMS Limitations: no limitations History of Present Illness HPI narrative: 62 yo female with PMH of CHF, nonischemic cardiomyopathy EF 40%, DANIEL, obesity hypoventilation syndrome, CKD, COPD/asthma, chronic back pain with hx of L5-S1 disc protrusion comes in with worsening LE swelling and calf pain for the last few days and now central sharp pleuritic chest pain worse since last night when she takes a deep breath. She reports compliance with all medications. Unsure if she gained weight. She also notes chronic back pain. Denies fever or cough. She has not had a clot before. Seen 01/23 and given IVF for FELICIA on CKD MD complaint: chest heaviness Onset (ago): day(s) (last night) Timing of current episode: constant Onset: during rest Pain location: substernal Pain radiation: none Severity: moderate Quality: sharp Relieving factors: nothing Exacerbating factors: inspiration Associated symptoms: dyspnea and leg swelling Treatment prior to arrival: none Related Data Home Medications Medication Instructions Recorded Confirmed albuterol sulfate 90 mcg/actuation 2 puff inhalation Q4H PRN Dyspnea 11/23/20 12/27/22 aerosol inhaler (ProAir HFA) aspirin 81 mg tablet,delayed 81 mg PO DAILY 11/23/20 12/27/22 release fluoxetine 40 mg capsule 40 mg PO DAILY 11/23/20 12/27/22 fluticasone propionate 110 2 puff inhalation BID 11/23/20 12/27/22 mcg/actuation HFA aerosol inhaler (Flovent HFA) metoprolol succinate 50 mg 50 mg PO DAILY 11/23/20 12/27/22 tablet,extended release 24 hr simvastatin 20 mg tablet 20 mg PO BEDTIME 11/23/20 12/27/22 bumetanide 2 mg tablet 1 tab PO DAILY 06/07/21 12/27/22 cholecalciferol (vitamin D3) 25 1 cap PO DAILY 06/07/21 12/27/22 mcg (1,000 unit) capsule risperidone 1 mg tablet 1 tab PO BID 04/20/22 12/27/22 blood sugar diagnostic (FreeStyle #10 ea 06/25/22 06/25/22 Lite Strips) insulin syringe-needle U-100 1 mL #10 ea 06/25/22 06/25/22 31 gauge x 5/16 (BD Insulin Syringe Ultra-Fine) lancets 28 gauge (FreeStyle #100 ea 06/25/22 06/25/22 Lancets) gabapentin 400 mg capsule 400 mg PO BID@0900,1500 09/08/22 12/27/22 insulin glargine 100 unit/mL 50 unit subcut BID 09/08/22 12/27/22 subcutaneous solution (Lantus U-100 Insulin) nystatin 100,000 unit/gram topical 1 appl topical BID PRN Rash 09/08/22 12/27/22 powder insulin syringe-needle U-100 1 mL 09/27/22 09/28/22 31 gauge x 5/16 (BD Insulin Syringe Ultra-Fine) gabapentin 800 mg tablet 800 mg PO BEDTIME 09/28/22 12/27/22 isosorbide mononitrate 30 mg 1 tab PO DAILY 09/28/22 12/27/22 tablet,extended release 24 hr spironolactone 25 mg tablet 1 tab PO DAILY 09/28/22 12/27/22 amlodipine 10 mg tablet 10 mg PO DAILY 12/27/22 12/27/22 buspirone 10 mg tablet 10 mg PO BID 12/27/22 12/27/22 docusate sodium 100 mg capsule 100 mg PO DAILY 12/27/22 12/27/22 haloperidol 2 mg tablet 2 mg PO BEDTIME 12/27/22 12/27/22 Previous Rx's Medication Instructions Recorded insulin lispro 100 unit/mL See Protocol subcut QIDACHS #1 mL 01/16/21 subcutaneous solution (Humalog U-100 Insulin) clonidine HCl 0.1 mg tablet 0.1 mg PO TID PRN hyperarousal, 04/01/22 anxiety, panic #90 tabs bumetanide 1 mg tablet 1 mg PO BEDTIME #30 tabs 04/08/22 hydralazine 25 mg tablet 25 mg PO BID #60 tabs 04/08/22 blood-glucose meter (FreeStyle #1 ea 09/02/22 Lite Meter kit) lorazepam 0.5 mg tablet (Ativan) 0.5 mg PO BID PRN anxiety #6 tabs 12/16/22 doxycycline hyclate 100 mg tablet 100 mg PO BID #14 tabs 12/27/22 Allergies Allergy/AdvReac Type Severity Reaction Status Date / Time ibuprofen Allergy Intermediate vommiting, Verified 01/23/23 20:11 itching acetaminophen [Tylenol] Allergy Mild Unknown Verified 01/23/23 20:11 morphine AdvReac Intermediate vomiting Verified 01/23/23 20:11 vancomycin AdvReac Intermediate Itching Verified 01/23/23 20:11 codeine AdvReac Anaphylaxis Verified 01/23/23 19:10 Review of Systems Review of Systems: Constitutional : No Weight loss, No Fever, No Chills ENT/Mouth : No sore throat, No Rhinorrhea Eyes: No Eye Pain, No Swelling Cardiovascular : pos Chest Pain, pos SOB, no Dyspnea on Exertion, No Orthopnea, pos Edema, No Palpitations Respiratory : No Cough, No Sputum Gastrointestinal : no Nausea, No Vomiting, No Diarrhea, No abdominal Pain, No Hematochezia, No Melena Genitourinary : No Dysuria, No Urinary Frequency Musculoskeletal : No joint pain, No Myalgias, No Joint Swelling, pos back pain Skin : No Skin Lesions, No rash Neuro : No Weakness, No Numbness, No Dizziness, No Headache All other systems reviewed and are negative PMFSH Past Medical History Attestation statement: The following information was validated with the patient. Source: old records reviewed Medical History Abdominal pain Acute on chronic combined systolic and diastolic CHF (congestive heart failure) Adjustment disorder with mixed anxiety and depressed mood FELICIA (acute kidney injury) Asthma Cellulitis of right lower extremity CHF exacerbation Chronic pain Chronic respiratory failure with hypoxia CKD (chronic kidney disease) stage 3, GFR 30-59 ml/min Congestive heart failure Constipation COPD (chronic obstructive pulmonary disease) Decubitus ulcer Depression Diabetes Diabetic neuropathy, painful High cholesterol Hyperglycemia due to diabetes mellitus Hypertension Hypoxia MDD (major depressive disorder), recurrent episode, moderate Morbid obesity NICM (nonischemic cardiomyopathy) Obesity hypoventilation syndrome DANIEL (obstructive sleep apnea) Panic disorder Stasis dermatitis of both legs Stercoral colitis Uncontrolled type 2 diabetes mellitus with hyperglycemia Surgical History Hx of cholecystectomy Family History Family History Mother HTN (hypertension) Diabetes CAD (coronary artery disease) Father HTN (hypertension) Diabetes CAD (coronary artery disease) Maternal Grandmother CAD (coronary artery disease) Social History Social History Household Members: None Household Members Other:: GRANDSON Housing: Apartment 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 Do you presently have visiting nurse or other home services: Yes Alcohol intake: current Alcohol intake frequency: holidays/special occasions only Patient Tobacco Use Status: Former Tobacco user Quit Date: 1999 Tobacco use type: Cigarette Years Smoked: 38 Second Hand Smoke Exposure: No Substance Use Type: Marijuana Advance Directives: Yes Advance Directives on File: Yes Advance Directives Date on File: 12/19/20 service: No Current occupational status: disabled Physical Exam Vital Signs: Vital Signs: Last Vital Signs Temp 98.3 F 01/28/23 12:56 Pulse 84 01/28/23 12:56 Resp 16 01/28/23 12:56 BP 119/54 L 01/28/23 12:56 Pulse Ox 94 01/28/23 12:56 O2 Del Method Room Air 01/28/23 12:56 BMI result Body Mass Index 52.6 Appearance: Alert. Oriented X3. No acute distress. Eyes: Pupils equal, round and reactive to light. ENT: Pharynx normal. Neck: Normal inspection. Neck supple. CVS: Normal heart rate and rhythm. Pulses normal. Respiratory: No respiratory distress. Breath sounds diminished both bases. Abdomen: Soft and nontender. obese Skin: Skin warm and dry. Normal skin color. Normal skin turgor. Extremities: bilateral 2+ pitting edema no signs of infection, distal pulses intact Neuro: Oriented X 3. No motor deficit. No sensory deficit. Course Course Course Narrative: CKD cannot have CTA will obtain CXR, VQ scan and DVT studies Medications Administered Discontinued Medications Generic Name Dose Route Start Last Admin Trade Name Freq PRN Reason Stop Dose Admin Hydromorphone HCl 1 mg 01/28/23 14:45 01/28/23 14:53 Hydromorphone Hcl 2 Mg Tablet PO 01/28/23 14:46 1 mg ONCE ONE Administration Medical Decision Making Medical Decision Making MDM Narrative: 62 yo female with PMH of CHF, nonischemic cardiomyopathy EF 40%, DANIEL, obesity hypoventilation syndrome, CKD, COPD/asthma, chronic back pain with hx of L5-S1 disc protrusion here wtih c/o pleuritic central chest pain with leg swelling and leg pain - no signs of infection, has hx of CHF could be volume overload also just given IVF for FELICIA on CKD in ED 01/23. She is a set up for VTE given obesity and immobility - ddimer ordered. Anticipate CTA: PE if elevated vs VQ scan. She also reports chronic back pain but no incontinence or saddle anesthesia - laying flat no resp distress and no hypoxia at this time possible CHF, ACS or PE. Differential Diagnosis Differential Diagnoses: The differential diagnosis associated with the presentation includes CHF, ACS, PE, pneumonia PE, ACS and pneumonia most likely Admission/Observation Consideration of admission/observation: Escalation of care including admission/observation considered Lab Data MDM Lab Attestation statement: I reviewed the patient's lab results. 01/28/23 12:47 01/28/23 12:47 Labs: Lab Results 01/28/23 01/28/23 01/28/23 Range/Units 12:47 12:47 12:47 WBC 8.4 (4.8-10.8) X10*3/uL RBC 3.29 L (4.20-5.50) X10*6/uL Hgb 9.1 L (12.0-16.0) g/dl Hct 29.8 L (37.0-47.0) % MCV 90.6 (80.0-98.0) fL MCH 27.7 (27.0-33.0) pg MCHC 30.5 L (31.0-35.0) g/dl RDW 14.8 (11.0-16.0) % Plt Count 172 (160-400) X10*3/uL MPV 8.6 L (9.4-12.3) fL Immature Gran % (Auto) 0.4 (0.0-0.4) % Neut % (Auto) 78.5 H (45-73) % Lymph % (Auto) 11.0 L (20-40) % [place] % (Auto) 7.2 (2-11) % Eos % (Auto) 2.5 (0-4) % Baso % (Auto) 0.4 (0-2) % Lymph # (Auto) 0.9 L (1.2-4.9) X10*3/uL [place] # (Auto) 0.6 (0.1-1.2) X10*3/uL Eos # (Auto) 0.2 (0.0-0.4) X10*3/uL Baso # (Auto) 0.0 (0.0-0.2) X10*3/uL Abs Immat Gran (auto) 0.03 (0.00-0.03) X10*3/uL Absolute Neuts (auto) 6.6 (2.0-8.3) x10*3/uL Absolute Nucleated RBC 0.000 (0.0-0.012) X10*3/uL Nucleated RBC % (auto) 0.0 (0.0-0.2) /100WBC D-Dimer High Sensitivty 441 NG/ML Sodium 144 (135-145) mmol/L Potassium 4.6 (3.3-5.1) mmol/L Chloride 110 H (96-108) mmol/L Carbon Dioxide 25 (22-29) mmol/L Anion Gap 14 (12-20) BUN 53 H (9-16) mg/dL Creatinine 1.60 H (0.5-1.4) mg/dL Estim Creat Clear Calc 47.9 Estimated GFR 33 Random Glucose 116 H (60-115) mg/dL Calcium 8.7 (8.4-10.2) mg/dL Magnesium 2.4 (1.6-2.6) mg/dL Total Bilirubin 0.2 (0.0-1.0) mg/dL Direct Bilirubin < 0.2 (0.0-0.5) mg/dL AST 10 (5-31) U/L ALT 9 (0-31) U/L Alkaline Phosphatase 62 (39-117) U/L Troponin I High Sens (<3.5-17.0) ng/L B-Natriuretic Peptide (<100) pg/mL Total Protein 6.8 (6.5-8.0) g/dL Albumin 3.6 (3.5-5.0) g/dL Lipase 6 L (8-78) U/L 01/28/23 01/28/23 Range/Units 12:47 12:47 WBC (4.8-10.8) X10*3/uL RBC (4.20-5.50) X10*6/uL Hgb (12.0-16.0) g/dl Hct (37.0-47.0) % MCV (80.0-98.0) fL MCH (27.0-33.0) pg MCHC (31.0-35.0) g/dl RDW (11.0-16.0) % Plt Count (160-400) X10*3/uL MPV (9.4-12.3) fL Immature Gran % (Auto) (0.0-0.4) % Neut % (Auto) (45-73) % Lymph % (Auto) (20-40) % [place] % (Auto) (2-11) % Eos % (Auto) (0-4) % Baso % (Auto) (0-2) % Lymph # (Auto) (1.2-4.9) X10*3/uL [place] # (Auto) (0.1-1.2) X10*3/uL Eos # (Auto) (0.0-0.4) X10*3/uL Baso # (Auto) (0.0-0.2) X10*3/uL Abs Immat Gran (auto) (0.00-0.03) X10*3/uL Absolute Neuts (auto) (2.0-8.3) x10*3/uL Absolute Nucleated RBC (0.0-0.012) X10*3/uL Nucleated RBC % (auto) (0.0-0.2) /100WBC D-Dimer High Sensitivty NG/ML Sodium (135-145) mmol/L Potassium (3.3-5.1) mmol/L Chloride (96-108) mmol/L Carbon Dioxide (22-29) mmol/L Anion Gap (12-20) BUN (9-16) mg/dL Creatinine (0.5-1.4) mg/dL Estim Creat Clear Calc Estimated GFR Random Glucose (60-115) mg/dL Calcium (8.4-10.2) mg/dL Magnesium (1.6-2.6) mg/dL Total Bilirubin (0.0-1.0) mg/dL Direct Bilirubin (0.0-0.5) mg/dL AST (5-31) U/L ALT (0-31) U/L Alkaline Phosphatase (39-117) U/L Troponin I High Sens 7.0 D (<3.5-17.0) ng/L B-Natriuretic Peptide 25 (<100) pg/mL Total Protein (6.5-8.0) g/dL Albumin (3.5-5.0) g/dL Lipase (8-78) U/L Independent Interpretation I performed an independent interpretation of an: EKG and Plain X-Ray (normal ) Interpretation: Rate: 81 Rhythm: NSR with PVC Leon: normal Normal P waves. Normal ASHLEY. Normal QRS complex. ST T wave : no SUZANNA no ST depression qTC: prolonged under 500 though prior studies: no sig change from priors The study has been interpreted contemporaneously by me. . Radiology Impression Discussion of test interpretation with radiology: I have reviewed the radiologist's reading. External Record Review External record reviewed: Inpatient record, Office record and Outpatient record Social Determinants Patient?s care significantly limited by Social Determinants of Health including: Problems related to primary support group Discharge Plan Discharge Clinical Impression: Chest pain Qualifiers: Chest pain type: chest pain on breathing Qualified Code(s): R07.1 - Chest pain on breathing Patient Disposition: Still a Patient Prescriptions: No Action (DME) blood-glucose meter [FreeStyle Lite Meter] Kit See Rx Instructions .Route Qty: 1 0RF Rx Instructions: As directed checks POC 4 X/day insulin lispro [Humalog U-100 Insulin] 100 unit/mL Solution See Protocol subcut QIDACHS Qty: 1 0RF Protocol: Insulin Correction Scale Less than or equal to 110 ---- Give (units): 0 111 to 150 Give (units): 0 151 to 200 Give (units): 2 201 to 250 Give (units): 4 251 to 300 Give (units): 6 301 to 350 Give (units): 8 Greater than 350 Give (units): 10 Call MD if Blood Glucose > : 350 Rx Instructions: sliding scale fluoxetine 40 mg capsule 40 mg PO DAILY metoprolol succinate 50 mg tablet extended release 24 hr 50 mg PO DAILY aspirin 81 mg tablet,delayed release (DR/EC) 81 mg PO DAILY simvastatin 20 mg tablet 20 mg PO BEDTIME albuterol sulfate [ProAir HFA] 90 mcg/actuation HFA aerosol inhaler 2 puff inhalation Q4H PRN (Reason: Dyspnea) fluticasone propionate [Flovent HFA] 110 mcg/actuation HFA aerosol inhaler 2 puff inhalation BID bumetanide 2 mg tablet 1 tab PO DAILY cholecalciferol (vitamin D3) 25 mcg (1,000 unit) capsule 1 cap PO DAILY gabapentin 400 mg Capsule 400 mg PO BID@0900,1500 nystatin 100,000 unit/gram Powder 1 appl TOPICAL BID PRN (Reason: Rash) Protocol: Apply to: Apply to: under breasts, around groin Rx Instructions: apply to groin area, and under breasts insulin glargine [Lantus U-100 Insulin] 100 unit/mL solution 50 unit subcut BID (DME) insulin syringe-needle U-100 [BD Insulin Syringe Ultra-Fine] 1 mL 31 gauge x 5/16 syringe MISCELLANEOUS QID isosorbide mononitrate 30 mg tablet extended release 24 hr 1 tab PO DAILY spironolactone 25 mg tablet 1 tab PO DAILY gabapentin 800 mg Tablet 800 mg PO BEDTIME clonidine HCl 0.1 mg Tablet 0.1 mg PO TID PRN (Reason: hyperarousal, anxiety, panic) Qty: 90 0RF Protocol: Hold for SBP< HOLD for SBP < : 90 hydralazine 25 mg Tablet 25 mg PO BID Qty: 60 0RF Protocol: Hold for SBP< HOLD for SBP < : 90 bumetanide 1 mg Tablet 1 mg PO BEDTIME Qty: 30 0RF Protocol: Hold for SBP< HOLD for SBP < : 90 risperidone 1 mg tablet 1 tab PO BID lorazepam [Ativan] 0.5 mg tablet 0.5 mg PO BID PRN (Reason: anxiety) Qty: 6 0RF buspirone 10 mg Tablet 10 mg PO BID amlodipine 10 mg Tablet 10 mg PO DAILY docusate sodium 100 mg capsule 100 mg PO DAILY haloperidol [Haldol] 2 mg Tablet 2 mg PO BEDTIME doxycycline hyclate 100 mg tablet 100 mg PO BID Qty: 14 0RF (DME) FreeStyle Lite Strips Strip See Rx Instructions .ROUTE BID Qty: 10 Rx Instructions: As directed (DME) lancets [FreeStyle Lancets] 28 gauge misc See Rx Instructions .ROUTE QID Qty: 100 Rx Instructions: As directed (DME) insulin syringe-needle U-100 [BD Insulin Syringe Ultra-Fine] 1 mL 31 gauge x 5/16 syringe See Rx Instructions .ROUTE QID Qty: 10 Rx Instructions: As directed
[2023-01-28 12:52] LABS: MANUAL DIFF FLAG NO
[2023-01-28 12:54] LABS: Basophils Percent Auto 0.4 % (0-2); Eosinophils Absolute Auto 0.2 X10*3/uL (0.0-0.4); Eosinophils Percent Auto 2.5 % (0-4); Hematocrit 29.8 % (37.0-47.0); Hemoglobin 9.1 g/dl (12.0-16.0); Imm Gran Abs Auto 0.03 X10*3/uL (0.00-0.03); Imm Gran Pct Auto 0.4 % (0.0-0.4); Lymphocytes Absolute Auto 0.9 X10*3/uL (1.2-4.9); Mean Corpuscular HGB Conc 30.5 g/dl (31.0-35.0); Mean Corpuscular Hemoglobin 27.7 pg (27.0-33.0); Mean Corpuscular Volume 90.6 fL (80.0-98.0); Mean Platelet Volume 8.6 fL (9.4-12.3); Monocytes Absolute Auto 0.6 X10*3/uL (0.1-1.2); Monocytes Percent Auto 7.2 % (2-11); Neutrophils Absolute Auto 6.6 x10*3/uL (2.0-8.3); Neutrophils Percent Auto 78.5 % (45-73); Platelet Count 172 X10*3/uL (160-400); Red Blood Count 3.29 X10*6/uL (4.20-5.50); Red Cell Distribution Width 14.8 % (11.0-16.0); White Blood Count 8.4 X10*3/uL (4.8-10.8)
[2023-01-28 12:56] VITALS: BP 119/54; PULSE 84; RESP 16; TEMP 36.8; O2SAT 94
--- NOTE | 2023-01-28 12:59 | PC.NURSE ---
pt sleeping in room, call lopez within reach. awaiting lab results at this time
[2023-01-28 13:08] LABS: Alanine Aminotransferase 9 U/L (0-31); Albumin Level 3.6 g/dL (3.5-5.0); Alkaline Phosphatase 62 U/L (39-117); Anion Gap 14 (12-20); Aspartate Amino Transferase 10 U/L (5-31); Bilirubin Direct < 0.2 mg/dL (0.0-0.5); Bilirubin Total 0.2 mg/dL (0.0-1.0); Blood Urea Nitrogen 53 mg/dL (9-16); Calcium 8.7 mg/dL (8.4-10.2); Carbon Dioxide 25 mmol/L (22-29); Chloride 110 mmol/L (96-108); Creatinine Clr Calc Pharmacy 47.9; D Dimer High Sensitivity 441 NG/ML; Estimated Glomerular Filt Rate 33; Glucose Random 116 mg/dL (60-115); Lipase 6 U/L (8-78); Magnesium 2.4 mg/dL (1.6-2.6); Potassium 4.6 mmol/L (3.3-5.1); Sodium 144 mmol/L (135-145); Total Protein 6.8 g/dL (6.5-8.0)
[2023-01-28] MEDS: HYDROmorphone HCl 2 MG TABLET 1 MG PO (14:53)
--- NOTE | 2023-01-28 14:55 | PC.NURSE ---
pt medicated for pain per the MAR, transporter bringing pt to [facility] at this time
[2023-01-28 15:02] LABS: B Type Natriuretic Peptide 25 pg/mL (<100)
[2023-01-28 16:02] VITALS: BP 123/44; PULSE 86; RESP 12; TEMP 36.6; O2SAT 96
[2023-01-28 17:09] LABS: Troponin-I High Sensitivity 5.4 ng/L (<3.5-17.0)
[2023-01-28 18:09] VITALS: BP 151/54; PULSE 89; RESP 13; O2SAT 94
== END 2023-01-28 19:24 | disposition home or self-care (01) ==
PROVIDERS: Emergency Medicine; Emergency Provider Emergency Medicine Emergency Medical Services; PCP Internal Medicine
DX: R07.1 Chest pain on breathing (principal); R06.02 Shortness of breath; M79.662 Pain in left lower leg; R60.0 Localized edema; E11.22 Type 2 diabetes mellitus with diabetic chronic kidney disease; I13.0 Hypertensive heart and chronic kidney disease with heart failure and stage 1 through stage 4 chronic kidney disease, or unspecified chronic kidney disease; N18.30 Chronic kidney disease, stage 3 unspecified; I50.43 Acute on chronic combined systolic (congestive) and diastolic (congestive) heart failure; Z79.4 Long term (current) use of insulin; Z79.82 Long term (current) use of aspirin; Z79.899 Other long term (current) drug therapy
CPT/HCPCS: 36415; 71045; 78580; 80048; 80076; 83690; 83735; 83880; 84484; 85025; 85379; 93005; 93970; 99285; A9540

== ENCOUNTER → 2023-01-28 09:55 | Outpatient (BNV) | payer OTHER, SELFPAY | PROVIDERS: Emergency Provider Emergency Medicine; PCP Internal Medicine; Visit Provider Internal Medicine Cardiovascular Disease | DX: I49.3 Ventricular premature depolarization (principal) | CPT/HCPCS: 93010 ==

== ENCOUNTER 2023-02-09 23:06 | Emergency (ER) | payer OTHER, SELFPAY ==
--- NOTE | 2023-02-09 23:19 | ED.OVERDOSE ---
HPI - Overdose General Chief Complaint: General Medical Stated Complaint: od lantus, per ems Time Seen by Provider: 02/09/23 23:18 Source: patient Mode of arrival: EMS Limitations: no limitations History of Present Illness HPI Narrative: Patient's history of diabetes on insulin, CHF, CKD patient took night dose of 45 units of Lantus at 19:30 at dinner and biopsy sick again at 930 to 2nd dose of Lantus insulin patient's glucose was 133 at home for EMS 149 repeat was 267 after arrival in the ER it is 188 patient otherwise asymptomatic feeling as before Related Data Home Medications Medication Instructions Recorded Confirmed albuterol sulfate 90 mcg/actuation 2 puff inhalation Q4H PRN Dyspnea 11/23/20 12/27/22 aerosol inhaler (ProAir HFA) aspirin 81 mg tablet,delayed 81 mg PO DAILY 11/23/20 12/27/22 release fluoxetine 40 mg capsule 40 mg PO DAILY 11/23/20 12/27/22 fluticasone propionate 110 2 puff inhalation BID 11/23/20 12/27/22 mcg/actuation HFA aerosol inhaler (Flovent HFA) metoprolol succinate 50 mg 50 mg PO DAILY 11/23/20 12/27/22 tablet,extended release 24 hr simvastatin 20 mg tablet 20 mg PO BEDTIME 11/23/20 12/27/22 bumetanide 2 mg tablet 1 tab PO DAILY 06/07/21 12/27/22 cholecalciferol (vitamin D3) 25 1 cap PO DAILY 06/07/21 12/27/22 mcg (1,000 unit) capsule risperidone 1 mg tablet 1 tab PO BID 04/20/22 12/27/22 blood sugar diagnostic (FreeStyle #10 ea 06/25/22 06/25/22 Lite Strips) insulin syringe-needle U-100 1 mL #10 ea 06/25/22 06/25/22 31 gauge x 5/16 (BD Insulin Syringe Ultra-Fine) lancets 28 gauge (FreeStyle #100 ea 06/25/22 06/25/22 Lancets) gabapentin 400 mg capsule 400 mg PO BID@0900,1500 09/08/22 12/27/22 insulin glargine 100 unit/mL 50 unit subcut BID 09/08/22 12/27/22 subcutaneous solution (Lantus U-100 Insulin) nystatin 100,000 unit/gram topical 1 appl topical BID PRN Rash 09/08/22 12/27/22 powder insulin syringe-needle U-100 1 mL 09/27/22 09/28/22 31 gauge x 5/16 (BD Insulin Syringe Ultra-Fine) gabapentin 800 mg tablet 800 mg PO BEDTIME 09/28/22 12/27/22 isosorbide mononitrate 30 mg 1 tab PO DAILY 09/28/22 12/27/22 tablet,extended release 24 hr spironolactone 25 mg tablet 1 tab PO DAILY 09/28/22 12/27/22 amlodipine 10 mg tablet 10 mg PO DAILY 12/27/22 12/27/22 buspirone 10 mg tablet 10 mg PO BID 12/27/22 12/27/22 docusate sodium 100 mg capsule 100 mg PO DAILY 12/27/22 12/27/22 haloperidol 2 mg tablet 2 mg PO BEDTIME 12/27/22 12/27/22 Previous Rx's Medication Instructions Recorded insulin lispro 100 unit/mL See Protocol subcut QIDACHS #1 mL 01/16/21 subcutaneous solution (Humalog U-100 Insulin) clonidine HCl 0.1 mg tablet 0.1 mg PO TID PRN hyperarousal, 04/01/22 anxiety, panic #90 tabs bumetanide 1 mg tablet 1 mg PO BEDTIME #30 tabs 04/08/22 hydralazine 25 mg tablet 25 mg PO BID #60 tabs 04/08/22 blood-glucose meter (FreeStyle #1 ea 09/02/22 Lite Meter kit) lorazepam 0.5 mg tablet (Ativan) 0.5 mg PO BID PRN anxiety #6 tabs 12/16/22 doxycycline hyclate 100 mg tablet 100 mg PO BID #14 tabs 12/27/22 Allergies Allergy/AdvReac Type Severity Reaction Status Date / Time ibuprofen Allergy Intermediate vommiting, Verified 01/23/23 20:11 itching acetaminophen [Tylenol] Allergy Mild Unknown Verified 01/23/23 20:11 morphine AdvReac Intermediate vomiting Verified 01/23/23 20:11 vancomycin AdvReac Intermediate Itching Verified 01/23/23 20:11 codeine AdvReac Anaphylaxis Verified 01/23/23 19:10 Review of Systems Review of Systems: Yes all other systems are reviewed and are negative PMFSH Past Medical History Medical History Abdominal pain Acute on chronic combined systolic and diastolic CHF (congestive heart failure) Adjustment disorder with mixed anxiety and depressed mood FELICIA (acute kidney injury) Asthma Cellulitis of right lower extremity CHF exacerbation Chronic pain Chronic respiratory failure with hypoxia CKD (chronic kidney disease) stage 3, GFR 30-59 ml/min Congestive heart failure Constipation COPD (chronic obstructive pulmonary disease) Decubitus ulcer Depression Diabetes Diabetic neuropathy, painful High cholesterol Hyperglycemia due to diabetes mellitus Hypertension Hypoxia MDD (major depressive disorder), recurrent episode, moderate Morbid obesity NICM (nonischemic cardiomyopathy) Obesity hypoventilation syndrome DANIEL (obstructive sleep apnea) Panic disorder Stasis dermatitis of both legs Stercoral colitis Uncontrolled type 2 diabetes mellitus with hyperglycemia Surgical History Hx of cholecystectomy Family History Family History Mother HTN (hypertension) Diabetes CAD (coronary artery disease) Father HTN (hypertension) Diabetes CAD (coronary artery disease) Maternal Grandmother CAD (coronary artery disease) Social History Social History Household Members: None Household Members Other:: GRANDSON Housing: Apartment Housing Other:: with utility agent Do you presently have visiting nurse or other home services: Yes Alcohol intake: never Patient Tobacco Use Status: Former Tobacco user Quit Date: 1999 Tobacco use type: Cigarette Years Smoked: 38 Smoked in Last 30 Days: No Second Hand Smoke Exposure: No Use of substances other than those prescribed or required for medical reasons: Yes Substance Use Type: Marijuana Substance Use Frequency: Chronic Longstanding Advance Directives: Yes Advance Directives on File: Yes Advance Directives Date on File: 12/19/20 Patient : No service: No Current occupational status: disabled Physical Exam Vital Signs: Vital Signs: Last Vital Signs Temp 97.6 F 02/10/23 05:40 Pulse 72 02/10/23 05:40 Resp 13 02/10/23 05:40 BP 105/43 L 02/10/23 05:40 Pulse Ox 95 02/10/23 05:40 O2 Del Method Room Air 02/10/23 05:40 BMI result Body Mass Index 53.5 Appearance: Alert. Oriented X3. No acute distress. obese Eyes: PERRLA, No Nystagmus ENT: Pharynx normal. Oral Mucosa moist Neck: Normal inspection. Neck supple. CVS: Normal heart rate and rhythm. Pulses normal. Respiratory: No respiratory distress. Equal air entry bilateral, no wheezing/rales/rhonchi Abdomen: Soft and nontender. Bowel sounds are present, no mass palpable, no CVA tenderness Skin: Skin warm and dry. Normal skin color. Normal skin turgor. Extremities2 + lower extremity edema. No calf tenderness Neuro: Oriented X 3. No motor deficit. No sensory deficit.No cerebellar signs , cranial nerves II-XII intact Medical Decision Making Medical Decision Making [facility] Narrative: Patient accidentally Lantus overdose more than 12 hours ago blood sugar stable patient had p.o. fluids and had breakfast last PSA was 98 and patient had breakfast after that patient asymptomatic Lab Data [facility] Lab Attestation statement: I reviewed the patient's lab results. Labs: Lab Results 02/09/23 02/10/23 02/10/23 Range/Units 23:25 01:48 05:49 POC Glucose 188 H 108 98 (60-115) mg/dL Critical Care Time Critical Care Time Critical Care Time: Yes Total Critical Care Time: 45 Attestation: The patient was critically ill with a high probability of imminent or life threatening deterioration. I spent greater than 45 minutes of discontinuous time evaluating the patient,delivering critical care at the bedside, discussing and evaluating pertinent data with consultants. Critical care time does not include time spent performing separately billable procedures or teaching. Total time spent performing critical care was 45 minutes. Discharge Plan Discharge Clinical Impression: Accidental overdose of insulin Patient Disposition: Home, Self-Care Instructions: Insulin Glargine (By injection) Additional Instructions: Check blood sugar every 4 hour until evening Skip the dose of Lantus insulin tonight Drink plenty of fluids and have good meals Report to ED if your blood sugar persistently lower than 60 Prescriptions: No Action (DME) blood-glucose meter [FreeStyle Lite Meter] Kit See Rx Instructions .Route Qty: 1 0RF Rx Instructions: As directed checks POC 4 X/day insulin lispro [Humalog U-100 Insulin] 100 unit/mL Solution See Protocol subcut QIDACHS Qty: 1 0RF Protocol: Insulin Correction Scale Less than or equal to 110 ---- Give (units): 0 111 to 150 Give (units): 0 151 to 200 Give (units): 2 201 to 250 Give (units): 4 251 to 300 Give (units): 6 301 to 350 Give (units): 8 Greater than 350 Give (units): 10 Call MD if Blood Glucose > : 350 Rx Instructions: sliding scale fluoxetine 40 mg capsule 40 mg PO DAILY metoprolol succinate 50 mg tablet extended release 24 hr 50 mg PO DAILY aspirin 81 mg tablet,delayed release (DR/EC) 81 mg PO DAILY simvastatin 20 mg tablet 20 mg PO BEDTIME albuterol sulfate [ProAir HFA] 90 mcg/actuation HFA aerosol inhaler 2 puff inhalation Q4H PRN (Reason: Dyspnea) fluticasone propionate [Flovent HFA] 110 mcg/actuation HFA aerosol inhaler 2 puff inhalation BID bumetanide 2 mg tablet 1 tab PO DAILY cholecalciferol (vitamin D3) 25 mcg (1,000 unit) capsule 1 cap PO DAILY gabapentin 400 mg Capsule 400 mg PO BID@0900,1500 nystatin 100,000 unit/gram Powder 1 appl TOPICAL BID PRN (Reason: Rash) Protocol: Apply to: Apply to: under breasts, around groin Rx Instructions: apply to groin area, and under breasts insulin glargine [Lantus U-100 Insulin] 100 unit/mL solution 50 unit subcut BID (DME) insulin syringe-needle U-100 [BD Insulin Syringe Ultra-Fine] 1 mL 31 gauge x 5/16 syringe MISCELLANEOUS QID isosorbide mononitrate 30 mg tablet extended release 24 hr 1 tab PO DAILY spironolactone 25 mg tablet 1 tab PO DAILY gabapentin 800 mg Tablet 800 mg PO BEDTIME clonidine HCl 0.1 mg Tablet 0.1 mg PO TID PRN (Reason: hyperarousal, anxiety, panic) Qty: 90 0RF Protocol: Hold for SBP< HOLD for SBP < : 90 hydralazine 25 mg Tablet 25 mg PO BID Qty: 60 0RF Protocol: Hold for SBP< HOLD for SBP < : 90 bumetanide 1 mg Tablet 1 mg PO BEDTIME Qty: 30 0RF Protocol: Hold for SBP< HOLD for SBP < : 90 risperidone 1 mg tablet 1 tab PO BID lorazepam [Ativan] 0.5 mg tablet 0.5 mg PO BID PRN (Reason: anxiety) Qty: 6 0RF buspirone 10 mg Tablet 10 mg PO BID amlodipine 10 mg Tablet 10 mg PO DAILY docusate sodium 100 mg capsule 100 mg PO DAILY haloperidol [Haldol] 2 mg Tablet 2 mg PO BEDTIME doxycycline hyclate 100 mg tablet 100 mg PO BID Qty: 14 0RF (DME) FreeStyle Lite Strips Strip See Rx Instructions .ROUTE BID Qty: 10 Rx Instructions: As directed (DME) lancets [FreeStyle Lancets] 28 gauge misc See Rx Instructions .ROUTE QID Qty: 100 Rx Instructions: As directed (DME) insulin syringe-needle U-100 [BD Insulin Syringe Ultra-Fine] 1 mL 31 gauge x 5/16 syringe See Rx Instructions .ROUTE QID Qty: 10 Rx Instructions: As directed Interventions: ED Discharge Assessment Last Done: 02/10/23 07:20 Discharge Date/Time: 02/10/23 07:21
[2023-02-09 23:21] VITALS: BP 119/49; BP 160/55; PULSE 75; PULSE 82; RESP 18; TEMP 36.8; O2SAT 93; BMI 53.5
[2023-02-09 23:30] LABS: Glucose, Whole Blood 188 mg/dL (60-115)
--- NOTE | 2023-02-09 23:45 | MHC.EDTECH ---
pt put on bedpan with no results . Barrier cream put in abd folds
--- NOTE | 2023-02-09 23:47 | MHC.EDTECH ---
This tech assume care at 2300 pt vitals and POC done result of POC is 188 RN&MD aware
[2023-02-10 00:15] VITALS: BP 115/51; PULSE 71; RESP 18; TEMP 36.8; O2SAT 92
[2023-02-10 01:43] VITALS: BP 122/44; PULSE 74; RESP 18; TEMP 37.2; O2SAT 92
[2023-02-10 01:53] LABS: Glucose, Whole Blood 108 mg/dL (60-115)
--- NOTE | 2023-02-10 02:40 | PC.NURSE ---
Pt sleeping, easily rousable, glucose remains WNL with no symptoms of glycemic issues at this time.
--- NOTE | 2023-02-10 03:20 | MHC.EDTECH ---
pt requested bed mei. This race and sports book writer noticed open area to left and right buttock patient acknowledges these open areas and states pcp aware.
[2023-02-10 05:40] VITALS: BP 105/43; PULSE 72; RESP 13; TEMP 36.4; O2SAT 95
[2023-02-10 05:53] LABS: Glucose, Whole Blood 98 mg/dL (60-115)
--- NOTE | 2023-02-10 06:01 | PC.NURSE ---
Spoke with daughter Tess regarding ride home. Daughter stated this is first notification that she had that the pt is here. Daughter stated she will call back with plan to sampler pickup pt.
--- NOTE | 2023-02-10 07:21 | PC.NURSE ---
reviewed discharge instructions with pt.
== END 2023-02-10 10:21 | disposition home or self-care (01) ==
PROVIDERS: Emergency Provider Internal Medicine; PCP Internal Medicine
DX: T38.3X1A Poisoning by insulin and oral hypoglycemic [antidiabetic] drugs, accidental (unintentional), initial encounter (principal); Y92.039 Unspecified place in apartment as the place of occurrence of the external cause; E11.22 Type 2 diabetes mellitus with diabetic chronic kidney disease; I13.0 Hypertensive heart and chronic kidney disease with heart failure and stage 1 through stage 4 chronic kidney disease, or unspecified chronic kidney disease; N18.30 Chronic kidney disease, stage 3 unspecified; I50.9 Heart failure, unspecified; E78.5 Hyperlipidemia, unspecified; Z79.4 Long term (current) use of insulin; Z79.899 Other long term (current) drug therapy
CPT/HCPCS: 82947; 99282; 99284

== ENCOUNTER 2023-02-18 09:27 | Outpatient (REF) | payer OTHER, SELFPAY ==
--- NOTE | 2023-02-18 09:33 | EMG_ITS ---
Please see scanned EMG / Nerve Conduction Report. MTDD
== END 2023-02-18 09:28 | disposition home or self-care (01) ==
LOC: HO.NEURO 09:27
PROVIDERS: PCP Internal Medicine; Visit Provider Internal Medicine
DX: M79.641 Pain in right hand (principal)
CPT/HCPCS: 95860; 95885; 95907; 95913

== ENCOUNTER 2023-02-23 13:16 | Outpatient (REF) | payer OTHER, SELFPAY | END 2023-02-23 13:17 | disposition home or self-care (01) | LOC: HO.HOSX 13:16 | PROVIDERS: Visit Provider Orthopaedic Surgery | DX: Z13.89 Encounter for screening for other disorder (principal) ==

== ENCOUNTER 2023-02-23 23:07 | Emergency (ER) | payer OTHER, SELFPAY ==
--- NOTE | ~2023-02-23 | XR_ITS ---
EXAMINATION: XR CHEST CLINICAL INFORMATION: Shortness of breath. COMPARISON: 01/28/2023 TECHNIQUE: Frontal view of the chest was obtained. FINDINGS: The lung volumes are low and the patient is minimally rotated. The cardiomediastinal silhouette is stable. There is no focal lung consolidation or pleural effusion. The bony structures and soft tissues are unremarkable. XR/XR chest 1V IMPRESSION: No active cardiopulmonary disease.
[2023-02-23 23:12] VITALS: BP 110/70; PULSE 82; O2SAT 95
[2023-02-23 23:13] VITALS: BP 131/54; PULSE 80; RESP 19; TEMP 37.1; O2SAT 95; BMI 51.5
--- NOTE | 2023-02-23 23:23 | ED.CHESTPAIN ---
HPI - Chest Pain General Chief Complaint: Chest Pain Stated Complaint: Chest pain Source: patient Mode of arrival: EMS Limitations: no limitations History of Present Illness HPI narrative: Patient is 62 years old with history of morbid obesity, diastolic heart failure, nonischemic cardiomyopathy with ejection fraction of 50-55, DANIEL, diabetes and hypertension with chronic leg edema comes here for pain in the mid chest and the back no fever no chills no cough patient walks with walker today Related Data Home Medications Medication Instructions Recorded Confirmed albuterol sulfate 90 mcg/actuation 2 puff inhalation Q4H PRN Dyspnea 11/23/20 12/27/22 aerosol inhaler (ProAir HFA) aspirin 81 mg tablet,delayed 81 mg PO DAILY 11/23/20 12/27/22 release fluoxetine 40 mg capsule 40 mg PO DAILY 11/23/20 12/27/22 fluticasone propionate 110 2 puff inhalation BID 11/23/20 12/27/22 mcg/actuation HFA aerosol inhaler (Flovent HFA) metoprolol succinate 50 mg 50 mg PO DAILY 11/23/20 12/27/22 tablet,extended release 24 hr simvastatin 20 mg tablet 20 mg PO BEDTIME 11/23/20 12/27/22 bumetanide 2 mg tablet 1 tab PO DAILY 06/07/21 12/27/22 cholecalciferol (vitamin D3) 25 1 cap PO DAILY 06/07/21 12/27/22 mcg (1,000 unit) capsule risperidone 1 mg tablet 1 tab PO BID 04/20/22 12/27/22 blood sugar diagnostic (FreeStyle #10 ea 06/25/22 06/25/22 Lite Strips) insulin syringe-needle U-100 1 mL #10 ea 06/25/22 06/25/22 31 gauge x 5/16 (BD Insulin Syringe Ultra-Fine) lancets 28 gauge (FreeStyle #100 ea 06/25/22 06/25/22 Lancets) gabapentin 400 mg capsule 400 mg PO BID@0900,1500 09/08/22 12/27/22 insulin glargine 100 unit/mL 50 unit subcut BID 09/08/22 12/27/22 subcutaneous solution (Lantus U-100 Insulin) nystatin 100,000 unit/gram topical 1 appl topical BID PRN Rash 09/08/22 12/27/22 powder insulin syringe-needle U-100 1 mL 03/11/23 03/12/23 31 gauge x 5/16 (BD Insulin Syringe Ultra-Fine) gabapentin 800 mg tablet 800 mg PO BEDTIME 09/28/22 12/27/22 isosorbide mononitrate 30 mg 1 tab PO DAILY 09/28/22 12/27/22 tablet,extended release 24 hr spironolactone 25 mg tablet 1 tab PO DAILY 09/28/22 12/27/22 amlodipine 10 mg tablet 10 mg PO DAILY 12/27/22 12/27/22 buspirone 10 mg tablet 10 mg PO BID 12/27/22 12/27/22 docusate sodium 100 mg capsule 100 mg PO DAILY 12/27/22 12/27/22 haloperidol 2 mg tablet 2 mg PO BEDTIME 12/27/22 12/27/22 Previous Rx's Medication Instructions Recorded insulin lispro 100 unit/mL See Protocol subcut QIDACHS #1 mL 01/16/21 subcutaneous solution (Humalog U-100 Insulin) clonidine HCl 0.1 mg tablet 0.1 mg PO TID PRN hyperarousal, 04/01/22 anxiety, panic #90 tabs bumetanide 1 mg tablet 1 mg PO BEDTIME #30 tabs 04/08/22 hydralazine 25 mg tablet 25 mg PO BID #60 tabs 04/08/22 blood-glucose meter (FreeStyle #1 ea 09/02/22 Lite Meter kit) lorazepam 0.5 mg tablet (Ativan) 0.5 mg PO BID PRN anxiety #6 tabs 12/16/22 doxycycline hyclate 100 mg tablet 100 mg PO BID #14 tabs 12/27/22 tramadol 50 mg tablet 50 mg PO Q6H PRN pain #20 tabs 02/24/23 Allergies Allergy/AdvReac Type Severity Reaction Status Date / Time ibuprofen Allergy Intermediate vommiting, Verified 01/23/23 20:11 itching acetaminophen [Tylenol] Allergy Mild Unknown Verified 01/23/23 20:11 morphine AdvReac Intermediate vomiting Verified 01/23/23 20:11 vancomycin AdvReac Intermediate Itching Verified 01/23/23 20:11 codeine AdvReac Anaphylaxis Verified 01/23/23 19:10 Review of Systems Review of Systems: Yes all other systems are reviewed and are negative PMFSH Past Medical History Medical History Abdominal pain Acute on chronic combined systolic and diastolic CHF (congestive heart failure) Adjustment disorder with mixed anxiety and depressed mood FELICIA (acute kidney injury) Asthma Cellulitis of right lower extremity CHF exacerbation Chronic pain Chronic respiratory failure with hypoxia CKD (chronic kidney disease) stage 3, GFR 30-59 ml/min Congestive heart failure Constipation COPD (chronic obstructive pulmonary disease) Decubitus ulcer Depression Diabetes Diabetic neuropathy, painful High cholesterol Hyperglycemia due to diabetes mellitus Hypertension Hypoxia MDD (major depressive disorder), recurrent episode, moderate Morbid obesity NICM (nonischemic cardiomyopathy) Obesity hypoventilation syndrome DANIEL (obstructive sleep apnea) Panic disorder Stasis dermatitis of both legs Stercoral colitis Uncontrolled type 2 diabetes mellitus with hyperglycemia Surgical History Hx of cholecystectomy Family History Family History Mother HTN (hypertension) Diabetes CAD (coronary artery disease) Father HTN (hypertension) Diabetes CAD (coronary artery disease) Maternal Grandmother CAD (coronary artery disease) Social History Social History Household Members: None Household Members Other:: GRANDSON Housing: Apartment Housing 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:: with 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 Do you presently have visiting nurse or other home services: Yes Alcohol intake: never Patient Tobacco Use Status: Former Tobacco user Quit Date: 1999 Tobacco use type: Cigarette Years Smoked: 38 Second Hand Smoke Exposure: No Substance Use Type: Marijuana Advance Directives: Yes Advance Directives on File: Yes Advance Directives Date on File: 12/19/20 service: No Current occupational status: disabled Physical Exam Vital Signs: Vital Signs: Last Vital Signs Temp 98.7 F 02/23/23 23:13 Pulse 80 02/23/23 23:13 Resp 19 02/23/23 23:13 BP 131/54 L 02/23/23 23:13 Pulse Ox 95 02/23/23 23:13 O2 Del Method Room Air 02/23/23 23:13 BMI result Body Mass Index 51.5 Appearance: Alert. Oriented X3. No acute distress. Obese Eyes: PERRLA, no pallor icterus ENT: Pharynx normal. Oral Mucosa moist Neck: Normal inspection. Neck supple. CVS: Normal heart rate and rhythm. Pulses normal. Respiratory: No respiratory distress. Equal air entry bilateral, no wheezing/rales/rhonchi Abdomen: Soft and nontender. Bowel sounds are present, no mass palpable, no CVA tenderness Skin: Skin warm and dry. Normal skin color. Normal skin turgor. Extremities: 4+ lower extremity edema. No calf tenderness, callus at the right lateral aspect of sole Neuro: Oriented X 3. No motor deficit. No sensory deficit.No cerebellar signs , cranial nerves II-XII intact Medications Administered Discontinued Medications Generic Name Dose Route Start Last Admin Trade Name Freq PRN Reason Stop Dose Admin Tramadol HCl 50 mg 02/24/23 01:33 02/24/23 02:09 Tramadol Hcl 50 Mg Tablet PO 02/24/23 01:34 50 mg ONCE ONE Administration Medical Decision Making Medical Decision Making [facility] Narrative: Patient chronic leg edema with pain in the back and the chest without any acute ischemic changes troponin normal atypical chest pain BNP also normal patient does have dependent edema. Will discharge patient home on tramadol for pain Differential Diagnosis Chronic back pain/ACS/CHF/cirrhosis Lab Data [facility] Lab Attestation statement: I reviewed the patient's lab results. 02/23/23 23:30 02/23/23 23:30 Labs: Lab Results 02/23/23 02/23/23 02/23/23 Range/Units 23:30 23:30 23:30 WBC 8.5 (4.8-10.8) X10*3/uL RBC 3.27 L (4.20-5.50) X10*6/uL Hgb 9.0 L (12.0-16.0) g/dl Hct 28.9 L (37.0-47.0) % MCV 88.4 (80.0-98.0) fL MCH 27.5 (27.0-33.0) pg MCHC 31.1 (31.0-35.0) g/dl RDW 14.3 (11.0-16.0) % Plt Count 161 (160-400) X10*3/uL MPV 9.0 L (9.4-12.3) fL Immature Gran % (Auto) 0.4 (0.0-0.4) % Neut % (Auto) 74.3 H (45-73) % Lymph % (Auto) 13.0 L (20-40) % [place] % (Auto) 9.2 (2-11) % Eos % (Auto) 3.0 (0-4) % Baso % (Auto) 0.1 (0-2) % Lymph # (Auto) 1.1 L (1.2-4.9) X10*3/uL [place] # (Auto) 0.8 (0.1-1.2) X10*3/uL Eos # (Auto) 0.3 (0.0-0.4) X10*3/uL Baso # (Auto) 0.0 (0.0-0.2) X10*3/uL Abs Immat Gran (auto) 0.03 (0.00-0.03) X10*3/uL Absolute Neuts (auto) 6.3 (2.0-8.3) x10*3/uL Absolute Nucleated RBC 0.000 (0.0-0.012) X10*3/uL Nucleated RBC % (auto) 0.0 (0.0-0.2) /100WBC Sodium 144 (135-145) mmol/L Potassium 4.1 (3.3-5.1) mmol/L Chloride 108 (96-108) mmol/L Carbon Dioxide 27 (22-29) mmol/L Anion Gap 13 (12-20) BUN 42 H (9-16) mg/dL Creatinine 1.36 (0.5-1.4) mg/dL Estim Creat Clear Calc 56.2 Estimated GFR 40 Random Glucose 130 H (60-115) mg/dL Calcium 8.7 (8.4-10.2) mg/dL Total Bilirubin 0.3 (0.0-1.0) mg/dL Direct Bilirubin 0.1 (0.0-0.5) mg/dL AST 11 (5-31) U/L ALT 8 (0-31) U/L Alkaline Phosphatase 65 (39-117) U/L Troponin I High Sens 8.3 D (<3.5-17.0) ng/L B-Natriuretic Peptide (<100) pg/mL Total Protein 6.9 (6.5-8.0) g/dL Albumin 3.6 (3.5-5.0) g/dL 02/23/23 Range/Units 23:30 WBC (4.8-10.8) X10*3/uL RBC (4.20-5.50) X10*6/uL Hgb (12.0-16.0) g/dl Hct (37.0-47.0) % MCV (80.0-98.0) fL MCH (27.0-33.0) pg MCHC (31.0-35.0) g/dl RDW (11.0-16.0) % Plt Count (160-400) X10*3/uL MPV (9.4-12.3) fL Immature Gran % (Auto) (0.0-0.4) % Neut % (Auto) (45-73) % Lymph % (Auto) (20-40) % [place] % (Auto) (2-11) % Eos % (Auto) (0-4) % Baso % (Auto) (0-2) % Lymph # (Auto) (1.2-4.9) X10*3/uL [place] # (Auto) (0.1-1.2) X10*3/uL Eos # (Auto) (0.0-0.4) X10*3/uL Baso # (Auto) (0.0-0.2) X10*3/uL Abs Immat Gran (auto) (0.00-0.03) X10*3/uL Absolute Neuts (auto) (2.0-8.3) x10*3/uL Absolute Nucleated RBC (0.0-0.012) X10*3/uL Nucleated RBC % (auto) (0.0-0.2) /100WBC Sodium (135-145) mmol/L Potassium (3.3-5.1) mmol/L Chloride (96-108) mmol/L Carbon Dioxide (22-29) mmol/L Anion Gap (12-20) BUN (9-16) mg/dL Creatinine (0.5-1.4) mg/dL Estim Creat Clear Calc Estimated GFR Random Glucose (60-115) mg/dL Calcium (8.4-10.2) mg/dL Total Bilirubin (0.0-1.0) mg/dL Direct Bilirubin (0.0-0.5) mg/dL AST (5-31) U/L ALT (0-31) U/L Alkaline Phosphatase (39-117) U/L Troponin I High Sens (<3.5-17.0) ng/L B-Natriuretic Peptide 45 (<100) pg/mL Total Protein (6.5-8.0) g/dL Albumin (3.5-5.0) g/dL Independent Interpretation I performed an independent interpretation of an: EKG Interpretation: Normal sinus rhythm heart rate 79 beats per minute normal interval normal axis no acute ST-T no acute ischemia Discharge Plan Discharge Clinical Impression: Chronic pain, Atypical chest pain Patient Disposition: Home, Self-Care Instructions: Chest Pain (ED), Back Pain (ED) Additional Instructions: Take pain medication as prescribed Follow-up with your PCP if not better Prescriptions: New tramadol 50 mg tablet 50 mg PO Q6H PRN (Reason: pain) Qty: 20 0RF No Action (DME) blood-glucose meter [FreeStyle Lite Meter] Kit See Rx Instructions .Route Qty: 1 0RF Rx Instructions: As directed checks POC 4 X/day insulin lispro [Humalog U-100 Insulin] 100 unit/mL Solution See Protocol subcut QIDACHS Qty: 1 0RF Protocol: Insulin Correction Scale Less than or equal to 110 ---- Give (units): 0 111 to 150 Give (units): 0 151 to 200 Give (units): 2 201 to 250 Give (units): 4 251 to 300 Give (units): 6 301 to 350 Give (units): 8 Greater than 350 Give (units): 10 Call MD if Blood Glucose > : 350 Rx Instructions: sliding scale fluoxetine 40 mg capsule 40 mg PO DAILY metoprolol succinate 50 mg tablet extended release 24 hr 50 mg PO DAILY aspirin 81 mg tablet,delayed release (DR/EC) 81 mg PO DAILY simvastatin 20 mg tablet 20 mg PO BEDTIME albuterol sulfate [ProAir HFA] 90 mcg/actuation HFA aerosol inhaler 2 puff inhalation Q4H PRN (Reason: Dyspnea) fluticasone propionate [Flovent HFA] 110 mcg/actuation HFA aerosol inhaler 2 puff inhalation BID bumetanide 2 mg tablet 1 tab PO DAILY cholecalciferol (vitamin D3) 25 mcg (1,000 unit) capsule 1 cap PO DAILY gabapentin 400 mg Capsule 400 mg PO BID@0900,1500 nystatin 100,000 unit/gram Powder 1 appl TOPICAL BID PRN (Reason: Rash) Protocol: Apply to: Apply to: under breasts, around groin Rx Instructions: apply to groin area, and under breasts insulin glargine [Lantus U-100 Insulin] 100 unit/mL solution 50 unit subcut BID (DME) insulin syringe-needle U-100 [BD Insulin Syringe Ultra-Fine] 1 mL 31 gauge x 5/16 syringe MISCELLANEOUS QID isosorbide mononitrate 30 mg tablet extended release 24 hr 1 tab PO DAILY spironolactone 25 mg tablet 1 tab PO DAILY gabapentin 800 mg Tablet 800 mg PO BEDTIME clonidine HCl 0.1 mg Tablet 0.1 mg PO TID PRN (Reason: hyperarousal, anxiety, panic) Qty: 90 0RF Protocol: Hold for SBP< HOLD for SBP < : 90 hydralazine 25 mg Tablet 25 mg PO BID Qty: 60 0RF Protocol: Hold for SBP< HOLD for SBP < : 90 bumetanide 1 mg Tablet 1 mg PO BEDTIME Qty: 30 0RF Protocol: Hold for SBP< HOLD for SBP < : 90 risperidone 1 mg tablet 1 tab PO BID lorazepam [Ativan] 0.5 mg tablet 0.5 mg PO BID PRN (Reason: anxiety) Qty: 6 0RF buspirone 10 mg Tablet 10 mg PO BID amlodipine 10 mg Tablet 10 mg PO DAILY docusate sodium 100 mg capsule 100 mg PO DAILY haloperidol [Haldol] 2 mg Tablet 2 mg PO BEDTIME doxycycline hyclate 100 mg tablet 100 mg PO BID Qty: 14 0RF (DME) FreeStyle Lite Strips Strip See Rx Instructions .ROUTE BID Qty: 10 Rx Instructions: As directed (DME) lancets [FreeStyle Lancets] 28 gauge misc See Rx Instructions .ROUTE QID Qty: 100 Rx Instructions: As directed (DME) insulin syringe-needle U-100 [BD Insulin Syringe Ultra-Fine] 1 mL 31 gauge x 5/16 syringe See Rx Instructions .ROUTE QID Qty: 10 Rx Instructions: As directed
[2023-02-23 23:35] LABS: MANUAL DIFF FLAG NO
[2023-02-23 23:37] LABS: Basophils Percent Auto 0.1 % (0-2); Eosinophils Absolute Auto 0.3 X10*3/uL (0.0-0.4); Hematocrit 28.9 % (37.0-47.0); Imm Gran Abs Auto 0.03 X10*3/uL (0.00-0.03); Imm Gran Pct Auto 0.4 % (0.0-0.4); Lymphocytes Absolute Auto 1.1 X10*3/uL (1.2-4.9); Mean Corpuscular HGB Conc 31.1 g/dl (31.0-35.0); Mean Corpuscular Hemoglobin 27.5 pg (27.0-33.0); Mean Corpuscular Volume 88.4 fL (80.0-98.0); Monocytes Absolute Auto 0.8 X10*3/uL (0.1-1.2); Monocytes Percent Auto 9.2 % (2-11); Neutrophils Absolute Auto 6.3 x10*3/uL (2.0-8.3); Neutrophils Percent Auto 74.3 % (45-73); Platelet Count 161 X10*3/uL (160-400); Red Blood Count 3.27 X10*6/uL (4.20-5.50); Red Cell Distribution Width 14.3 % (11.0-16.0); White Blood Count 8.5 X10*3/uL (4.8-10.8)
--- NOTE | 2023-02-23 23:41 | ECG_ITS ---
Test Reason : CHEST PAIN Blood Pressure : / mmHG Vent. Rate : 079 BPM Atrial Rate : 079 BPM P-R Int : 166 ms QRS Dur : 102 ms QT Int : 420 ms P-R-T Axes : 054 011 044 degrees QTc Int : 481 ms Normal sinus rhythm Normal ECG When compared with ECG of 28-JAN-2023 09:58, Premature ventricular complexes are no longer Present Referred By: Anthony Joyner Electronically Signed By:Orlando Hebert
[2023-02-23 23:54] LABS: Alanine Aminotransferase 8 U/L (0-31); Albumin Level 3.6 g/dL (3.5-5.0); Alkaline Phosphatase 65 U/L (39-117); Anion Gap 13 (12-20); Aspartate Amino Transferase 11 U/L (5-31); Bilirubin Direct 0.1 mg/dL (0.0-0.5); Bilirubin Total 0.3 mg/dL (0.0-1.0); Blood Urea Nitrogen 42 mg/dL (9-16); Calcium 8.7 mg/dL (8.4-10.2); Carbon Dioxide 27 mmol/L (22-29); Chloride 108 mmol/L (96-108); Creatinine Clr Calc Pharmacy 56.2; Estimated Glomerular Filt Rate 40; Glucose Random 130 mg/dL (60-115); Potassium 4.1 mmol/L (3.3-5.1); Sodium 144 mmol/L (135-145); Total Protein 6.9 g/dL (6.5-8.0)
[2023-02-24 00:01] LABS: Troponin-I High Sensitivity 8.3 ng/L (<3.5-17.0)
[2023-02-24 00:04] LABS: B Type Natriuretic Peptide 45 pg/mL (<100)
[2023-02-24] MEDS: traMADoL HCL 50 MG TABLET PO (02:09)
--- NOTE | 2023-02-24 02:20 | MHC.EDTECH ---
Annita called at 0219 for a bls transfer back home per 's request,ETA 30Mins. RN aware
--- NOTE | 2023-02-24 02:44 | MHC.EDTECH ---
EMS arrived at 0244 for transport.
== END 2023-02-24 02:57 | disposition home or self-care (01) ==
PROVIDERS: Emergency Provider Internal Medicine; PCP Internal Medicine Medical Oncology
DX: G89.29 Other chronic pain (principal); R07.89 Other chest pain; R60.0 Localized edema; E11.22 Type 2 diabetes mellitus with diabetic chronic kidney disease; I13.0 Hypertensive heart and chronic kidney disease with heart failure and stage 1 through stage 4 chronic kidney disease, or unspecified chronic kidney disease; N18.9 Chronic kidney disease, unspecified; I50.43 Acute on chronic combined systolic (congestive) and diastolic (congestive) heart failure; R09.02 Hypoxemia; F12.90 Cannabis use, unspecified, uncomplicated; E66.9 Obesity, unspecified; Z68.43 Body mass index [BMI] 50.0-59.9, adult; Z87.891 Personal history of nicotine dependence; Z79.82 Long term (current) use of aspirin; Z79.899 Other long term (current) drug therapy; Z79.4 Long term (current) use of insulin
CPT/HCPCS: 36415; 71045; 80048; 80076; 83880; 84484; 85025; 93005; 99283

== ENCOUNTER → 2023-02-23 23:41 | Outpatient (BNV) | payer OTHER, SELFPAY | PROVIDERS: Emergency Provider Internal Medicine; PCP Internal Medicine Medical Oncology; Visit Provider Internal Medicine Cardiovascular Disease | DX: R07.9 Chest pain, unspecified (principal) | CPT/HCPCS: 93010 ==

== ENCOUNTER 2023-03-06 00:46 | Emergency (ER) | payer OTHER, SELFPAY ==
[2023-03-06 00:47] VITALS: BP 135/55; BP 144/72; PULSE 77; PULSE 87; RESP 19; TEMP 37; O2SAT 97; O2SAT 98; BMI 51.2
[2023-03-06 01:59] VITALS: BP 141/54; PULSE 83; RESP 16; TEMP 36.7; O2SAT 98
--- NOTE | 2023-03-06 03:16 | PC.NURSE ---
Pt assisted to use bedpan.
--- NOTE | 2023-03-06 03:21 | ED.BACK ---
HPI - Back Pain/Injury General Chief Complaint: Back Pain/Injury Stated Complaint: BACK PAIN Time Seen by Provider: 03/06/23 02:00 Source: patient Mode of arrival: ambulatory Limitations: no limitations History of Present Illness HPI Narrative: Patient with chronic back pain been here multiple times was seen here on 02/23 for same comes here as he she woke up and having pain in the low back and hand patient was prescribed tramadol last time but she never filled the med pain no recent falls or injury Related Data Home Medications Medication Instructions Recorded Confirmed albuterol sulfate 90 mcg/actuation 2 puff inhalation Q4H PRN Dyspnea 11/23/20 12/27/22 aerosol inhaler (ProAir HFA) aspirin 81 mg tablet,delayed 81 mg PO DAILY 11/23/20 12/27/22 release fluoxetine 40 mg capsule 40 mg PO DAILY 11/23/20 12/27/22 fluticasone propionate 110 2 puff inhalation BID 11/23/20 12/27/22 mcg/actuation HFA aerosol inhaler (Flovent HFA) metoprolol succinate 50 mg 50 mg PO DAILY 11/23/20 12/27/22 tablet,extended release 24 hr simvastatin 20 mg tablet 20 mg PO BEDTIME 11/23/20 12/27/22 bumetanide 2 mg tablet 1 tab PO DAILY 06/07/21 12/27/22 cholecalciferol (vitamin D3) 25 1 cap PO DAILY 06/07/21 12/27/22 mcg (1,000 unit) capsule risperidone 1 mg tablet 1 tab PO BID 04/20/22 12/27/22 blood sugar diagnostic (FreeStyle #10 ea 06/25/22 06/25/22 Lite Strips) insulin syringe-needle U-100 1 mL #10 ea 06/25/22 06/25/22 31 gauge x 5/16 (BD Insulin Syringe Ultra-Fine) lancets 28 gauge (FreeStyle #100 ea 06/25/22 06/25/22 Lancets) gabapentin 400 mg capsule 400 mg PO BID@0900,1500 09/08/22 12/27/22 insulin glargine 100 unit/mL 50 unit subcut BID 09/08/22 12/27/22 subcutaneous solution (Lantus U-100 Insulin) nystatin 100,000 unit/gram topical 1 appl topical BID PRN Rash 09/08/22 12/27/22 powder insulin syringe-needle U-100 1 mL 09/27/22 09/28/22 31 gauge x 5/16 (BD Insulin Syringe Ultra-Fine) gabapentin 800 mg tablet 800 mg PO BEDTIME 09/28/22 12/27/22 isosorbide mononitrate 30 mg 1 tab PO DAILY 09/28/22 12/27/22 tablet,extended release 24 hr spironolactone 25 mg tablet 1 tab PO DAILY 09/28/22 12/27/22 amlodipine 10 mg tablet 10 mg PO DAILY 12/27/22 12/27/22 buspirone 10 mg tablet 10 mg PO BID 12/27/22 12/27/22 docusate sodium 100 mg capsule 100 mg PO DAILY 12/27/22 12/27/22 haloperidol 2 mg tablet 2 mg PO BEDTIME 12/27/22 12/27/22 Previous Rx's Medication Instructions Recorded insulin lispro 100 unit/mL See Protocol subcut QIDACHS #1 mL 01/16/21 subcutaneous solution (Humalog U-100 Insulin) clonidine HCl 0.1 mg tablet 0.1 mg PO TID PRN hyperarousal, 04/01/22 anxiety, panic #90 tabs bumetanide 1 mg tablet 1 mg PO BEDTIME #30 tabs 04/08/22 hydralazine 25 mg tablet 25 mg PO BID #60 tabs 04/08/22 blood-glucose meter (FreeStyle #1 ea 09/02/22 Lite Meter kit) lorazepam 0.5 mg tablet (Ativan) 0.5 mg PO BID PRN anxiety #6 tabs 12/16/22 doxycycline hyclate 100 mg tablet 100 mg PO BID #14 tabs 12/27/22 tramadol 50 mg tablet 50 mg PO Q6H PRN pain #20 tabs 02/24/23 Allergies Allergy/AdvReac Type Severity Reaction Status Date / Time ibuprofen Allergy Intermediate vommiting, Verified 01/23/23 20:11 itching acetaminophen [Tylenol] Allergy Mild Unknown Verified 01/23/23 20:11 morphine AdvReac Intermediate vomiting Verified 01/23/23 20:11 vancomycin AdvReac Intermediate Itching Verified 01/23/23 20:11 codeine AdvReac Anaphylaxis Verified 01/23/23 19:10 Review of Systems Review of Systems: Yes all other systems are reviewed and are negative PMFSH Past Medical History Medical History Abdominal pain Acute on chronic combined systolic and diastolic CHF (congestive heart failure) Adjustment disorder with mixed anxiety and depressed mood FELICIA (acute kidney injury) Asthma Cellulitis of right lower extremity CHF exacerbation Chronic pain Chronic respiratory failure with hypoxia CKD (chronic kidney disease) stage 3, GFR 30-59 ml/min Congestive heart failure Constipation COPD (chronic obstructive pulmonary disease) Decubitus ulcer Depression Diabetes Diabetic neuropathy, painful High cholesterol Hyperglycemia due to diabetes mellitus Hypertension Hypoxia MDD (major depressive disorder), recurrent episode, moderate Morbid obesity NICM (nonischemic cardiomyopathy) Obesity hypoventilation syndrome DANIEL (obstructive sleep apnea) Panic disorder Stasis dermatitis of both legs Stercoral colitis Uncontrolled type 2 diabetes mellitus with hyperglycemia Surgical History Hx of cholecystectomy Family History Family History Mother HTN (hypertension) Diabetes CAD (coronary artery disease) Father HTN (hypertension) Diabetes CAD (coronary artery disease) Maternal Grandmother CAD (coronary artery disease) Social History Social History Household Members: None Household Members Other:: GRANDSON Housing: Apartment 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 Do you presently have visiting nurse or other home services: Yes Alcohol intake: current Alcohol intake frequency: holidays/special occasions only Alcohol type: wine Patient Tobacco Use Status: Former Tobacco user Quit Date: 1999 Tobacco use type: Cigarette Years Smoked: 38 Smoked in Last 30 Days: No Second Hand Smoke Exposure: No Use of substances other than those prescribed or required for medical reasons: No Substance Use Type: Marijuana Advance Directives: Yes Advance Directives on File: Yes Advance Directives Date on File: 12/19/20 Patient : No service: No Current occupational status: disabled Physical Exam Vital Signs: Vital Signs: Last Vital Signs Temp 98.1 F 03/06/23 01:59 Pulse 83 03/06/23 01:59 Resp 16 03/06/23 01:59 BP 141/54 H 03/06/23 01:59 Pulse Ox 98 03/06/23 01:59 O2 Del Method Room Air 03/06/23 01:59 BMI result Body Mass Index 51.2 Appearance: Alert. Oriented X3. No acute distress. Obese Eyes: PERRLA, No Nystagmus ENT: Pharynx normal. Oral Mucosa moist Neck: Normal inspection. Neck supple. CVS: Normal heart rate and rhythm. Pulses normal. Respiratory: No respiratory distress. Equal air entry bilateral, no wheezing/rales/rhonchi Abdomen: Soft and nontender. Bowel sounds are present, no mass palpable, no CVA tenderness back: Diffuse tenderness in lumbar spine Skin: Skin warm and dry. Normal skin color. Normal skin turgor. Extremities: No lower extremity edema. No calf tenderness Neuro: Oriented X 3. No motor deficit. No sensory deficit.No cerebellar signs , cranial nerves II-XII intact Medications Administered Discontinued Medications Generic Name Dose Route Start Last Admin Trade Name Pankaj PRN Reason Stop Dose Admin Tramadol HCl 50 mg 03/06/23 03:22 03/06/23 04:09 Tramadol Hcl 50 Mg Tablet PO 03/06/23 03:23 50 mg ONCE ONE Administration Discharge Plan Discharge Clinical Impression: Chronic back pain Patient Disposition: Home, Self-Care Instructions: Chronic Back Pain (DC) Additional Instructions: take your pain medication as prescribed during last time and follow-up with PCP Prescriptions: No Action (DME) blood-glucose meter [FreeStyle Lite Meter] Kit See Rx Instructions .Route Qty: 1 0RF Rx Instructions: As directed checks POC 4 X/day insulin lispro [Humalog U-100 Insulin] 100 unit/mL Solution See Protocol subcut QIDACHS Qty: 1 0RF Protocol: Insulin Correction Scale Less than or equal to 110 ---- Give (units): 0 111 to 150 Give (units): 0 151 to 200 Give (units): 2 201 to 250 Give (units): 4 251 to 300 Give (units): 6 301 to 350 Give (units): 8 Greater than 350 Give (units): 10 Call MD if Blood Glucose > : 350 Rx Instructions: sliding scale fluoxetine 40 mg capsule 40 mg PO DAILY metoprolol succinate 50 mg tablet extended release 24 hr 50 mg PO DAILY aspirin 81 mg tablet,delayed release (DR/EC) 81 mg PO DAILY simvastatin 20 mg tablet 20 mg PO BEDTIME albuterol sulfate [ProAir HFA] 90 mcg/actuation HFA aerosol inhaler 2 puff inhalation Q4H PRN (Reason: Dyspnea) fluticasone propionate [Flovent HFA] 110 mcg/actuation HFA aerosol inhaler 2 puff inhalation BID bumetanide 2 mg tablet 1 tab PO DAILY cholecalciferol (vitamin D3) 25 mcg (1,000 unit) capsule 1 cap PO DAILY gabapentin 400 mg Capsule 400 mg PO BID@0900,1500 nystatin 100,000 unit/gram Powder 1 appl TOPICAL BID PRN (Reason: Rash) Protocol: Apply to: Apply to: under breasts, around groin Rx Instructions: apply to groin area, and under breasts insulin glargine [Lantus U-100 Insulin] 100 unit/mL solution 50 unit subcut BID (DME) insulin syringe-needle U-100 [BD Insulin Syringe Ultra-Fine] 1 mL 31 gauge x 5/16 syringe MISCELLANEOUS QID isosorbide mononitrate 30 mg tablet extended release 24 hr 1 tab PO DAILY spironolactone 25 mg tablet 1 tab PO DAILY gabapentin 800 mg Tablet 800 mg PO BEDTIME clonidine HCl 0.1 mg Tablet 0.1 mg PO TID PRN (Reason: hyperarousal, anxiety, panic) Qty: 90 0RF Protocol: Hold for SBP< HOLD for SBP < : 90 hydralazine 25 mg Tablet 25 mg PO BID Qty: 60 0RF Protocol: Hold for SBP< HOLD for SBP < : 90 bumetanide 1 mg Tablet 1 mg PO BEDTIME Qty: 30 0RF Protocol: Hold for SBP< HOLD for SBP < : 90 risperidone 1 mg tablet 1 tab PO BID lorazepam [Ativan] 0.5 mg tablet 0.5 mg PO BID PRN (Reason: anxiety) Qty: 6 0RF buspirone 10 mg Tablet 10 mg PO BID amlodipine 10 mg Tablet 10 mg PO DAILY docusate sodium 100 mg capsule 100 mg PO DAILY haloperidol [Haldol] 2 mg Tablet 2 mg PO BEDTIME doxycycline hyclate 100 mg tablet 100 mg PO BID Qty: 14 0RF tramadol 50 mg tablet 50 mg PO Q6H PRN (Reason: pain) Qty: 20 0RF (DME) FreeStyle Lite Strips Strip See Rx Instructions .ROUTE BID Qty: 10 Rx Instructions: As directed (DME) lancets [FreeStyle Lancets] 28 gauge misc See Rx Instructions .ROUTE QID Qty: 100 Rx Instructions: As directed (DME) insulin syringe-needle U-100 [BD Insulin Syringe Ultra-Fine] 1 mL 31 gauge x 5/16 syringe See Rx Instructions .ROUTE QID Qty: 10 Rx Instructions: As directed
[2023-03-06] MEDS: traMADoL HCL 50 MG TABLET PO (04:09)
[2023-03-06 06:02] VITALS: BP 137/82; PULSE 89; RESP 16; TEMP 36.8; O2SAT 99
--- NOTE | 2023-03-06 06:04 | PC.NURSE ---
Patient is alert and oriented x3, VSS. Patient medicated with Tramadol 50 mg fr back and right thumb pain, patient reports pain in at tolerable level 3/[address] Plan for discharge home with Rx for Tramadol 50 mg q 6 hrs PRN. Patient is in agreement with mei for discharge home, she signed discharge notice, verbalized understanding of discharge instructions. Patient is awaiting transportation by ambulance back home.
[2023-03-06 06:15] VITALS: BP 131/58; PULSE 80; RESP 18; TEMP 36.4; O2SAT 99
[2023-03-06 06:20] LABS: Glucose, Whole Blood 174 mg/dL (60-115)
== END 2023-03-06 08:59 | disposition home or self-care (01) ==
PROVIDERS: Emergency Provider Internal Medicine; PCP Internal Medicine Medical Oncology
DX: G89.29 Other chronic pain (principal); M54.50 Low back pain, unspecified; E11.22 Type 2 diabetes mellitus with diabetic chronic kidney disease; I13.0 Hypertensive heart and chronic kidney disease with heart failure and stage 1 through stage 4 chronic kidney disease, or unspecified chronic kidney disease; N18.30 Chronic kidney disease, stage 3 unspecified; I50.43 Acute on chronic combined systolic (congestive) and diastolic (congestive) heart failure; E78.5 Hyperlipidemia, unspecified; E66.9 Obesity, unspecified; Z68.43 Body mass index [BMI] 50.0-59.9, adult; Z79.4 Long term (current) use of insulin; Z79.899 Other long term (current) drug therapy
CPT/HCPCS: 82947; 99283; 99284

== ENCOUNTER 2023-03-24 11:06 | Outpatient (REF) | payer OTHER, SELFPAY ==
[2023-03-24 12:51] LABS: Creatinine Urine 120.91 mg/dL; Microalbum/Creatinine Ratio Ur 80.2 ug/mg cr (<30)
[2023-03-24 12:56] LABS: Cholesterol 84 mg/dL (<200); HDL Cholesterol 33 mg/dL (>40); LDL Cholesterol Calculated 31 mg/dL (<100); Triglycerides 100 mg/dL (<150)
== END 2023-03-24 11:07 | disposition home or self-care (01) ==
LOC: HO.LAB 11:06
PROVIDERS: PCP Internal Medicine; Visit Provider Internal Medicine Endocrinology, Diabetes & Metabolism
DX: E11.65 Type 2 diabetes mellitus with hyperglycemia (principal)
CPT/HCPCS: 36415; 80061; 82043; 82570

== ENCOUNTER 2023-03-25 10:26 | Outpatient (AMB) | payer OTHER, SELFPAY ==
[2023-03-25 10:27] VITALS: BP 136/82; PULSE 90; BMI 50.6
--- NOTE | 2023-03-25 10:27 | A.OFFVIS_ITS ---
Intake Vital Signs 03/25/23 10:27 Height 5 ft 2 in Weight 276 lb 7.355 oz BMI 50.6 BP 136/82 Blood Pressure Location Rt brachial Position Sitting Pulse 90 Pulse Source Pulse Oximeter Intake Visit Reasons: DM Intake Note: Patient present today to follow up on Type 2 Diabetes Mellitus. 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 Initially diagnosed with T2DM in >10 yrs . Never saw endo before Was initially started on treatment with metfromin . Current regimen Lantus 45 units BID (taking 15 units BID as directed by PCP) Humalog scale 4-6 units . , unfortunately, patient did not bring log book or sensor to follow-up appointment Not Reports low sugars . Family history of T2DM in grandparents and parents have Type 2 DM . Not Has eyes checked yearly, last eye exam , de nies retinopathy. Has appt 04/2023 has neuropathy, does not sees podiatry. Has nephropathy,Not on RICHY/ARB. Has HLD, on statin. Denies CAD. Not Had diabetes education. [facility]LY [facility] Medical History Abdominal pain Acute on chronic combined systolic and diastolic CHF (congestive heart failure) Adjustment disorder with mixed anxiety and depressed mood FELICIA (acute kidney injury) Asthma Cellulitis of right lower extremity CHF exacerbation Chronic pain Chronic respiratory failure with hypoxia CKD (chronic kidney disease) stage 3, GFR 30-59 ml/min Congestive heart failure Constipation COPD (chronic obstructive pulmonary disease) Decubitus ulcer Depression Diabetes Diabetic neuropathy, painful High cholesterol Hyperglycemia due to diabetes mellitus Hypertension Hypoxia MDD (major depressive disorder), recurrent episode, moderate Morbid obesity NICM (nonischemic cardiomyopathy) Obesity hypoventilation syndrome DANIEL (obstructive sleep apnea) Panic disorder Stasis dermatitis of both legs Stercoral colitis Uncontrolled type 2 diabetes mellitus with hyperglycemia Surgical History Hx of cholecystectomy Family History Mother HTN (hypertension) Diabetes CAD (coronary artery disease) Father HTN (hypertension) Diabetes CAD (coronary artery disease) Maternal Grandmother CAD (coronary artery disease) Social History Household Members: None Household Members Other:: GRANDSON Housing: Apartment Housing Other:: with internal carver Do you presently have visiting nurse or other home services: Yes Alcohol intake: current Alcohol intake frequency: holidays/special occasions only Alcohol type: wine Patient Tobacco Use Status: Former Tobacco user Quit Date: 1999 Tobacco use type: Cigarette Years Smoked: 38 Second Hand Smoke Exposure: No Substance Use Type: Marijuana Advance Directives Date on File: 12/19/20 service: No Current occupational status: disabled Physical Exam Vital Signs: Last Vital Signs Pulse 90 03/25/23 10:27 BP 136/82 03/25/23 10:27 BMI result Body Mass Index 50.6 Absence of Cushingoid features. Absence of acromegalic features. Neck exam reveals nl size thyroid about 15 gms. No thyroid nodules palpable. No carotid bruits present. Lungs CTA. Heart S1 S2, Reg R/R. No M/R/ G. Skin exam reveals absence of vitiligo or acanthosis nigricans. Abdominal exam reveals Soft NT/ND with NA BS. No organomegaly present. Neck Other: . Extrem Other: Visual exam of foot performed. There is 3+ edema in lower extremities. No ulcerations or open lesions. No onchomycosis, no callouses.Pulses 2 + distally Sensation intact to monofilament exam. Vibratory sensation sensed is intact with 128 Hz tuning fork Results AMB Hemoglobin A1c AMB Hemoglobin A1c 7.1 % Last Edit by Valencia Flynn on 03/25/23 11:04 Results Reviewed Results Reviewed: 03/25/23 10:44 Glucose, Whole Blood Routine Laboratory Last Values Glucose (Clinic) 283 mg/dL (60-115) H 03/25/23 10:44 Hgb A1c (Clinic) 7.1 % (4.0-6.0) H 03/25/23 10:49 Assessment & Plan Assessment & Plan (1) Uncontrolled type 2 diabetes mellitus with hyperglycemia: Code(s): E11.65 - Type 2 diabetes mellitus with hyperglycemia Plan: This 62-year-old female with a history of type 2 diabetes being treated with basal-bolus insulin with poor glycemic control and known microvascular and macrovascular complications namely CKD stage 4., PVD and neuropathy Plan is that the patient resume previous Lantus regimen 45 units BID . check her point cares pre and post meals. . I cannot make any changes to insulin regimen considering there is a lack of glucose readings. Should reinitate Lucy . . I also went over the correlation of poor glycemic control to development and progression of complication. Orders: Orders AMB Hemoglobin A1c Today E11.65 - Type 2 diabetes mellitus with hyperglycemia Medications: Discontinued docusate sodium 100 mg PO DAILY PRN 30 caps 0RF Constipation Coding Level of Care Code Est Pt Level 4 (41720) Diagnoses Uncontrolled type 2 diabetes mellitus with hyperglycemia E11.65
[2023-03-25 10:49] LABS: Glucose, Whole Blood 283 mg/dL (60-115)
== END 2023-03-25 11:09 | disposition home or self-care (01) ==
PROVIDERS: PCP Internal Medicine; Visit Provider Internal Medicine Endocrinology, Diabetes & Metabolism
DX: E11.65 Type 2 diabetes mellitus with hyperglycemia (principal)
CPT/HCPCS: 99214

== ENCOUNTER → 2023-03-25 10:26 | Outpatient (BNVA) | payer OTHER, SELFPAY | PROVIDERS: PCP Internal Medicine; Visit Provider Internal Medicine Endocrinology, Diabetes & Metabolism | DX: E11.65 Type 2 diabetes mellitus with hyperglycemia (principal) | CPT/HCPCS: 82947; 83036; 99212 ==

== ENCOUNTER 2023-03-26 17:22 | Emergency (ER) | payer OTHER, SELFPAY ==
--- NOTE | ~2023-03-26 | XR_ITS ---
EXAMINATION: XR CHEST CLINICAL INFORMATION: Chest pain COMPARISON: X-ray of the chest 02/23/2023. TECHNIQUE: Frontal view of the chest was obtained. FINDINGS: Lungs and pleural spaces: Low lung volumes. Mild increase in interstitial markings which could reflect mild edema or artifactual due to suboptimal inspiration. Cardiomediastinal silhouette normal. Bone and soft tissues unremarkable. XR/XR chest 1V IMPRESSION: 1. Low lung volumes. 2. Mild increase in interstitial markings compared to prior exam which could reflect mild edema or artifactual due to suboptimal inspiration.
[2023-03-26 17:32] VITALS: BP 120/38; BP 122/79; PULSE 85; PULSE 88; RESP 14; TEMP 37.4; O2SAT 93; O2SAT 97; BMI 50.3
[2023-03-26 18:20] VITALS: BP 121/67; PULSE 74; RESP 12; O2SAT 95
--- NOTE | 2023-03-26 18:35 | PC.NURSE ---
pt was assisted to a bed mei for urine, she has several small open areas on her buttocks, she also has fungal race on her abdomen
[2023-03-26 18:39] LABS: MANUAL DIFF FLAG NO
[2023-03-26 18:44] LABS: Basophils Percent Auto 0.3 % (0-2); Eosinophils Absolute Auto 0.2 X10*3/uL (0.0-0.4); Eosinophils Percent Auto 2.8 % (0-4); Hematocrit 28.3 % (37.0-47.0); Hemoglobin 8.9 g/dl (12.0-16.0); Imm Gran Abs Auto 0.04 X10*3/uL (0.00-0.03); Imm Gran Pct Auto 0.6 % (0.0-0.4); Lymphocytes Absolute Auto 1.1 X10*3/uL (1.2-4.9); Lymphocytes Percent Auto 16.9 % (20-40); Mean Corpuscular HGB Conc 31.4 g/dl (31.0-35.0); Mean Corpuscular Hemoglobin 26.7 pg (27.0-33.0); Monocytes Absolute Auto 0.6 X10*3/uL (0.1-1.2); Monocytes Percent Auto 9.4 % (2-11); Neutrophils Absolute Auto 4.7 x10*3/uL (2.0-8.3); Platelet Count 156 X10*3/uL (160-400); Red Blood Count 3.33 X10*6/uL (4.20-5.50); Red Cell Distribution Width 14.8 % (11.0-16.0); White Blood Count 6.7 X10*3/uL (4.8-10.8)
[2023-03-26 18:45] LABS: VBG Base Excess 5.4 mmol/L; VBG HCO3 29 mmol/L (22-26); VBG pCO2 39 mmHg; VBG pH 7.47 (7.32-7.43); VBG pO2 88 mmHg
[2023-03-26 18:45] LABS: Prothrombin Time 11.9 SEC (11.1-13.3)
[2023-03-26 18:53] LABS: Alanine Aminotransferase 6 U/L (0-31); Albumin Level 3.5 g/dL (3.5-5.0); Alkaline Phosphatase 68 U/L (39-117); Anion Gap 12 (12-20); Aspartate Amino Transferase 11 U/L (5-31); Bilirubin Total 0.3 mg/dL (0.0-1.0); Blood Urea Nitrogen 47 mg/dL (9-16); Carbon Dioxide 28 mmol/L (22-29); Chloride 106 mmol/L (96-108); Creatinine Clr Calc Pharmacy 47.8; Estimated Glomerular Filt Rate 34; Glucose Random 161 mg/dL (60-115); Potassium 3.9 mmol/L (3.3-5.1); Sodium 142 mmol/L (135-145); Total Protein 6.4 g/dL (6.5-8.0)
[2023-03-26 19:00] LABS: Troponin-I High Sensitivity 4.1 ng/L (<3.5-17.0)
[2023-03-26 19:07] LABS: Appearance Urine Turbid; Color Urine Yellow; Glucose Urine UA Negative (Negative); Leukocyte Esterase Urine Moderate (2+) (Negative); Nitrite Urine Negative (Negative); PH 5.5 (5.0-9.0); UMIC TRIGGER UACC YES; Urine Blood Large (3+) (Negative); Urine Ketones Negative (Negative); Urine Protein Trace mg/dL (Neg-Trace)
[2023-03-26 19:09] LABS: B Type Natriuretic Peptide 56 pg/mL (<100)
[2023-03-26 19:16] LABS: Bacteria Urine 1+ (None Seen); RBC Urine >20 /HPF (0-2); Squamous Epithelial Cell Urine >20 /HPF (0-2); WBC Urine 0-5 /HPF (0-5)
--- NOTE | 2023-03-26 19:17 | ED_ITS ---
HPI - Chest Pain General Chief Complaint: Chest Pain Stated Complaint: Depressed, chest pain dvlp while crying after hrs Time Seen by Provider: 03/26/23 17:24 Source: patient Mode of arrival: EMS History of Present Illness HPI narrative: 62-year-old female who arrives via EMS stating that she started having chest pain after she had been crying and states that her FOOD PHOTOGRAPHER did show up today and that she is very sad. Patient states that she is tired of feeling sad and depressed and wants to be better. Patient states that she does not have anyone around her house, her daughter lives in [facility]. Patient states that she is hungry all the time despite her FOOD PHOTOGRAPHER coming in staying for 2-1/2 hours twice a day every day, she also has physical therapy every day. Patient states that she is feeling very depressed. Related Data Home Medications Medication Instructions Recorded Confirmed albuterol sulfate 90 mcg/actuation 2 puff inhalation Q4H PRN Dyspnea 11/23/20 12/27/22 aerosol inhaler (ProAir HFA) aspirin 81 mg tablet,delayed 81 mg PO DAILY 11/23/20 12/27/22 release fluoxetine 40 mg capsule 40 mg PO DAILY 11/23/20 12/27/22 fluticasone propionate 110 2 puff inhalation BID 11/23/20 12/27/22 mcg/actuation HFA aerosol inhaler (Flovent HFA) metoprolol succinate 50 mg 50 mg PO DAILY 11/23/20 12/27/22 tablet,extended release 24 hr simvastatin 20 mg tablet 20 mg PO BEDTIME 11/23/20 12/27/22 bumetanide 2 mg tablet 1 tab PO DAILY 06/07/21 12/27/22 cholecalciferol (vitamin D3) 25 1 cap PO DAILY 06/07/21 12/27/22 mcg (1,000 unit) capsule risperidone 1 mg tablet 1 tab PO BID 04/20/22 12/27/22 blood sugar diagnostic (FreeStyle #10 ea 06/25/22 06/25/22 Lite Strips) insulin syringe-needle U-100 1 mL #10 ea 06/25/22 06/25/22 31 gauge x 5/16 (BD Insulin Syringe Ultra-Fine) lancets 28 gauge (FreeStyle #100 ea 06/25/22 06/25/22 Lancets) gabapentin 400 mg capsule 400 mg PO BID@00,1500 09/08/22 12/27/22 insulin glargine 100 unit/mL 50 unit subcut BID 09/08/22 12/27/22 subcutaneous solution (Lantus U-100 Insulin) nystatin 100,000 unit/gram topical 1 appl topical BID PRN Rash 09/08/22 12/27/22 powder insulin syringe-needle U-100 1 mL 09/27/22 09/28/22 31 gauge x 5/16 (BD Insulin Syringe Ultra-Fine) gabapentin 800 mg tablet 800 mg PO BEDTIME 09/28/22 12/27/22 isosorbide mononitrate 30 mg 1 tab PO DAILY 09/28/22 12/27/22 tablet,extended release 24 hr spironolactone 25 mg tablet 1 tab PO DAILY 09/28/22 12/27/22 amlodipine 10 mg tablet 10 mg PO DAILY 12/27/22 12/27/22 buspirone 10 mg tablet 10 mg PO BID 12/27/22 12/27/22 docusate sodium 100 mg capsule 100 mg PO DAILY 12/27/22 12/27/22 haloperidol 2 mg tablet 2 mg PO BEDTIME 12/27/22 12/27/22 Previous Rx's Medication Instructions Recorded insulin lispro 100 unit/mL See Protocol subcut QIDACHS #1 mL 01/16/21 subcutaneous solution (Humalog U-100 Insulin) clonidine HCl 0.1 mg tablet 0.1 mg PO TID PRN hyperarousal, 04/01/22 anxiety, panic #90 tabs bumetanide 1 mg tablet 1 mg PO BEDTIME #30 tabs 04/08/22 hydralazine 25 mg tablet 25 mg PO BID #60 tabs 04/08/22 blood-glucose meter (FreeStyle #1 ea 09/02/22 Lite Meter kit) lorazepam 0.5 mg tablet (Ativan) 0.5 mg PO BID PRN anxiety #6 tabs 12/16/22 doxycycline hyclate 100 mg tablet 100 mg PO BID #14 tabs 12/27/22 tramadol 50 mg tablet 50 mg PO Q6H PRN pain #20 tabs 02/24/23 tramadol 50 mg tablet 50 mg PO Q6H PRN pain #20 tabs 03/06/23 Allergies Allergy/AdvReac Type Severity Reaction Status Date / Time ibuprofen Allergy Intermediate vommiting, Verified 03/25/23 10:42 itching acetaminophen [Tylenol] Allergy Mild Unknown Verified 03/25/23 10:42 morphine AdvReac Intermediate vomiting Verified 03/25/23 10:42 vancomycin AdvReac Intermediate Itching Verified 03/25/23 10:42 codeine AdvReac Anaphylaxis Verified 03/25/23 10:42 Review of Systems 2 Review of Systems: Pertinent positives and negatives as stated in HPI [facility] Past Medical History Source: nursing notes reviewed Medical History Abdominal pain Acute on chronic combined systolic and diastolic CHF (congestive heart failure) Adjustment disorder with mixed anxiety and depressed mood FELICIA (acute kidney injury) Asthma Cellulitis of right lower extremity CHF exacerbation Chronic pain Chronic respiratory failure with hypoxia CKD (chronic kidney disease) stage 3, GFR 30-59 ml/min Congestive heart failure Constipation COPD (chronic obstructive pulmonary disease) Decubitus ulcer Depression Diabetes Diabetic neuropathy, painful High cholesterol Hyperglycemia due to diabetes mellitus Hypertension Hypoxia MDD (major depressive disorder), recurrent episode, moderate Morbid obesity NICM (nonischemic cardiomyopathy) Obesity hypoventilation syndrome DANIEL (obstructive sleep apnea) Panic disorder Stasis dermatitis of both legs Stercoral colitis Uncontrolled type 2 diabetes mellitus with hyperglycemia Surgical History Hx of cholecystectomy Family History Family History Mother HTN (hypertension) Diabetes CAD (coronary artery disease) Father HTN (hypertension) Diabetes CAD (coronary artery disease) Maternal Grandmother CAD (coronary artery disease) Social History Social History Household Members: None Household Members Other:: GRANDSON Housing: Apartment Housing Other:: with filter tank tender helper head Do you presently have visiting nurse or other home services: Yes Alcohol intake: never Patient Tobacco Use Status: Former Tobacco user Quit Date: 1999 Tobacco use type: Cigarette Years Smoked: 38 Smoked in Last 30 Days: No Second Hand Smoke Exposure: No Use of substances other than those prescribed or required for medical reasons: No Substance Use Type: Marijuana Advance Directives: Yes Advance Directives on File: Yes Advance Directives Date on File: 12/19/20 Patient : No service: No Current occupational status: disabled Physical Exam 2 Vital Signs: Vital Signs: Last Vital Signs Temp 99.4 F 03/26/23 17:32 Pulse 81 03/26/23 21:08 Resp 13 03/26/23 21:08 BP 117/56 L 03/26/23 21:08 Pulse Ox 93 03/26/23 21:08 O2 Del Method Room Air 03/26/23 18:20 BMI result Body Mass Index 50.3 VITAL SIGNS: Reviewed. GENERAL: Elevated BMI, Well developed, well nourished, in no acute distress. HEAD: Normocephalic/atraumatic EYES: PERRLA, EOMI EARS: Ext canals without abnormality NOSE: Nares patent bilateral OROPHARYNX: no oral lesions noted, posterior pharynx clear NECK: Supple, no adenopathy LUNGS: Normal breath sounds. No adventitious sounds or accessory muscle use. SpO2<95> CARDIOVASCULAR: Regular rate and rhythm without noted murmurs, no JVD or lower extremity edema. ABDOMEN: Soft, non-tender, non-distended with bowel sounds. : Significant yeast infection/candidiasis noted to the bilateral groin crease and involves underneath the pannus MUSCULOSKELETAL: No tenderness, deformities, or effusions noted on gross inspection. EXTREMITIES: No cyanosis, clubbing or edema, bilateral lower extremities shows skin thickening and circumferential mild erythema consistent with chronic venous stasis no obvious nonhealing ulcers. SKIN: Inspection of the skin reveals no rashes NEUROLOGIC: Alert and oriented x 4. Strength and sensation to light touch were grossly intact x 4. Medications Administered Discontinued Medications Generic Name Dose Route Start Last Admin Trade Name Freq PRN Reason Stop Dose Admin Miconazole Nitrate 1 appl 03/26/23 20:30 03/26/23 20:54 Miconazole Nitrate 2% Powder 85 Gm Bottle TOPICAL 03/26/23 20:31 1 appl ONCE ONE Administration Medical Decision Making Medical Decision Making MDM Narrative: 62-year-old female with history and clinical presentation, DDX: Depression, sadness, low clinical suspicion for pneumonia/ACS and will evaluate for any evidence of CHF or diabetic derangements. I reviewed all investigations and hematologic indices are chronically stable without leukocytosis or left shift, normocytic anemia is stable and stable thrombocytopenia. Coagulation studies are within normal limits. VBG does not demonstrate respiratory acidosis. Chemistry indices significant for a mild FELICIA but otherwise electrolyte and liver enzyme values are without derangements. High sensitivity troponin although detectable is not elevated and BNP is not elevated. Urinalysis is contaminated and will not be treated as a UTI. Patient is skin candidiasis of the groin area is being treated with topical miconazole. Chest x-ray demonstrates an increase in interstitial markings but otherwise no infiltrate and my interpretation is in agreement with radiology's impression. EKG is sinus rhythm with PACs and no evidence of ST elevations. Patient is medically cleared for evaluation by the care team. Patient placed in physician observation because the patient needed more time for evaluation by the care team for significant depression but no suicidal ideation.. At the time observation was started the patient's vital signs were stable, patient is alert and oriented, neuro: Nonfocal, CV RRR, lungs clear Differential Diagnosis Differential Diagnoses: The differential diagnosis associated with the presentation includes Please see the discussion above Admission/Observation Consideration of admission/observation: Escalation of care including admission/observation considered Please see the discussion above Lab Data MDM Lab Attestation statement: I reviewed the patient's lab results. Please see the discussion above 03/26/23 18:26 03/26/23 18:26 Labs: Lab Results 03/26/23 03/26/23 03/26/23 Range/Units 18:26 18:37 18:56 WBC 6.7 (4.8-10.8) X10*3/uL RBC 3.33 L (4.20-5.50) X10*6/uL Hgb 8.9 L (12.0-16.0) g/dl Hct 28.3 L (37.0-47.0) % MCV 85.0 (80.0-98.0) fL MCH 26.7 L (27.0-33.0) pg MCHC 31.4 (31.0-35.0) g/dl RDW 14.8 (11.0-16.0) % Plt Count 156 L (160-400) X10*3/uL MPV 9.0 L (9.4-12.3) fL Immature Gran % (Auto) 0.6 H (0.0-0.4) % Neut % (Auto) 70.0 (45-73) % Lymph % (Auto) 16.9 L (20-40) % Hendricks % (Auto) 9.4 (2-11) % Eos % (Auto) 2.8 (0-4) % Baso % (Auto) 0.3 (0-2) % Lymph # (Auto) 1.1 L (1.2-4.9) X10*3/uL Hendricks # (Auto) 0.6 (0.1-1.2) X10*3/uL Eos # (Auto) 0.2 (0.0-0.4) X10*3/uL Baso # (Auto) 0.0 (0.0-0.2) X10*3/uL Abs Immat Gran (auto) 0.04 H (0.00-0.03) X10*3/uL Absolute Neuts (auto) 4.7 (2.0-8.3) x10*3/uL Absolute Nucleated RBC 0.000 (0.0-0.012) X10*3/uL Nucleated RBC % (auto) 0.0 (0.0-0.2) /100WBC PT 11.9 (11.1-13.3) SEC INR 1.0 (0.9-1.1) VBG pH 7.47 H (7.32-7.43) VBG pCO2 39 mmHg VBG pO2 88 mmHg VBG HCO3 29 H (22-26) mmol/L VBG O2 Saturation 100.0 % VBG Base Excess 5.4 mmol/L Sodium 142 (135-145) mmol/L Potassium 3.9 (3.3-5.1) mmol/L Chloride 106 (96-108) mmol/L Carbon Dioxide 28 (22-29) mmol/L Anion Gap 12 (12-20) BUN 47 H (9-16) mg/dL Creatinine 1.56 H (0.5-1.4) mg/dL Estim Creat Clear Calc 47.8 Estimated GFR 34 Random Glucose 161 H (60-115) mg/dL Calcium 9.0 (8.4-10.2) mg/dL Total Bilirubin 0.3 (0.0-1.0) mg/dL AST 11 (5-31) U/L ALT 6 (0-31) U/L Alkaline Phosphatase 68 (39-117) U/L Troponin I High Sens 4.1 D (<3.5-17.0) ng/L B-Natriuretic Peptide 56 (<100) pg/mL Total Protein 6.4 L (6.5-8.0) g/dL Albumin 3.5 (3.5-5.0) g/dL Urine Color Yellow Urine Appearance Turbid Urine pH 5.5 (5.0-9.0) Ur Specific [place] 1.010 (1.005-1.025) Urine Protein Trace (Neg-Trace) mg/dL Urine Glucose (UA) Negative (Negative) mg/dL Urine Ketones Negative (Negative) mg/dL Urine Blood Large (3+) H (Negative) Urine Nitrite Negative (Negative) Ur Leukocyte Esterase Moderate (2+) H (Negative) Urine RBC >20 H (0-2) /HPF Urine WBC 0-5 (0-5) /HPF Ur Squamous Epith Cells >20 (0-2) /HPF Urine Bacteria 1+ (None Seen) Hyaline Casts 3-5 (0-2) /LPF Independent Interpretation I performed an independent interpretation of an: EKG Interpretation: Sinus rhythm with PACs, HR-88, no STEMI, DC/QRS/QTC is within normal limits. Radiology Impression Discussion of test interpretation with radiology: I have reviewed the radiologist's reading. Radiologist Impression: Please see the discussion above External Record Review External record reviewed: Outpatient record, Prior outpatient labs and Prior outpatient radiology Chronic Conditions Patient?s care impacted by: Diabetes, Hypertension and Other CHF Critical Care Time Critical Care Time Critical Care Time: Yes Total Critical Care Time: 30 Attestation: I personally attest to this time spent taking care of the patient. Discharge Plan Discharge Clinical Impression: Candidiasis of skin, Depression Patient Disposition: Still a Patient Prescriptions: No Action (DME) blood-glucose meter [FreeStyle Lite Meter] Kit See Rx Instructions .Route Qty: 1 0RF Rx Instructions: As directed checks POC 4 X/day insulin lispro [Humalog U-100 Insulin] 100 unit/mL Solution See Protocol subcut QIDACHS Qty: 1 0RF Protocol: Insulin Correction Scale Less than or equal to 110 ---- Give (units): 0 111 to 150 Give (units): 0 151 to 200 Give (units): 2 201 to 250 Give (units): 4 251 to 300 Give (units): 6 301 to 350 Give (units): 8 Greater than 350 Give (units): 10 Call MD if Blood Glucose > : 350 Rx Instructions: sliding scale fluoxetine 40 mg capsule 40 mg PO DAILY metoprolol succinate 50 mg tablet extended release 24 hr 50 mg PO DAILY aspirin 81 mg tablet,delayed release (DR/EC) 81 mg PO DAILY simvastatin 20 mg tablet 20 mg PO BEDTIME albuterol sulfate [ProAir HFA] 90 mcg/actuation HFA aerosol inhaler 2 puff inhalation Q4H PRN (Reason: Dyspnea) fluticasone propionate [Flovent HFA] 110 mcg/actuation HFA aerosol inhaler 2 puff inhalation BID bumetanide 2 mg tablet 1 tab PO DAILY cholecalciferol (vitamin D3) 25 mcg (1,000 unit) capsule 1 cap PO DAILY gabapentin 400 mg Capsule 400 mg PO BID@0900,1500 nystatin 100,000 unit/gram Powder 1 appl TOPICAL BID PRN (Reason: Rash) Protocol: Apply to: Apply to: under breasts, around groin Rx Instructions: apply to groin area, and under breasts insulin glargine [Lantus U-100 Insulin] 100 unit/mL solution 50 unit subcut BID (DME) insulin syringe-needle U-100 [BD Insulin Syringe Ultra-Fine] 1 mL 31 gauge x 5/16 syringe MISCELLANEOUS QID isosorbide mononitrate 30 mg tablet extended release 24 hr 1 tab PO DAILY spironolactone 25 mg tablet 1 tab PO DAILY gabapentin 800 mg Tablet 800 mg PO BEDTIME clonidine HCl 0.1 mg Tablet 0.1 mg PO TID PRN (Reason: hyperarousal, anxiety, panic) Qty: 90 0RF Protocol: Hold for SBP< HOLD for SBP < : 90 hydralazine 25 mg Tablet 25 mg PO BID Qty: 60 0RF Protocol: Hold for SBP< HOLD for SBP < : 90 bumetanide 1 mg Tablet 1 mg PO BEDTIME Qty: 30 0RF Protocol: Hold for SBP< HOLD for SBP < : 90 risperidone 1 mg tablet 1 tab PO BID tramadol 50 mg tablet 50 mg PO Q6H PRN (Reason: pain) Qty: 20 0RF lorazepam [Ativan] 0.5 mg tablet 0.5 mg PO BID PRN (Reason: anxiety) Qty: 6 0RF buspirone 10 mg Tablet 10 mg PO BID amlodipine 10 mg Tablet 10 mg PO DAILY docusate sodium 100 mg capsule 100 mg PO DAILY haloperidol [Haldol] 2 mg Tablet 2 mg PO BEDTIME doxycycline hyclate 100 mg tablet 100 mg PO BID Qty: 14 0RF tramadol 50 mg tablet 50 mg PO Q6H PRN (Reason: pain) Qty: 20 0RF (DME) FreeStyle Lite Strips Strip See Rx Instructions .ROUTE BID Qty: 10 Rx Instructions: As directed (DME) lancets [FreeStyle Lancets] 28 gauge misc See Rx Instructions .ROUTE QID Qty: 100 Rx Instructions: As directed (DME) insulin syringe-needle U-100 [BD Insulin Syringe Ultra-Fine] 1 mL 31 gauge x 5/16 syringe See Rx Instructions .ROUTE QID Qty: 10 Rx Instructions: As directed
[2023-03-26 19:19] LABS: Venous Blood Gas Refer to POC result
--- NOTE | 2023-03-26 19:21 | ECG_ITS ---
Test Reason : chest pain Blood Pressure : / mmHG Vent. Rate : 088 BPM Atrial Rate : 088 BPM P-R Int : 176 ms QRS Dur : 102 ms QT Int : 386 ms P-R-T Axes : 063 029 040 degrees QTc Int : 467 ms Poor data quality, interpretation may be adversely affected Sinus rhythm with Premature atrial complexes with Aberrant conduction Otherwise normal ECG When compared with ECG of 23-FEB-2023 23:20, Aberrant conduction is now Present Referred By: Chelsy Perez Electronically Signed By:KEYONA SANTANA
--- NOTE | 2023-03-26 19:35 | MHC.EDTECH ---
This Tech assumed care of this Pt. EKG completed and handed to the provider. PT placed on python consultant
--- NOTE | 2023-03-26 20:34 | PC.NURSE ---
Pt assisted with bed mei, reporting pain in the buttocks area. Pt was repositioned to the left side with a pillow under her right. Pharmacy is out of nystatin, order has been changed.
[2023-03-26 20:35] VITALS: PULSE 91
[2023-03-26] MEDS: Miconazole Nitrate 2% Powder 85 GM Bottle 1 APPL TOPICAL (20:54)
[2023-03-26 21:08] VITALS: BP 117/56; PULSE 81; RESP 13; O2SAT 93
[2023-03-26 23:26] LABS: Amphetamine Screen Urine Not Detected (Not Detect); Barbiturates, Urine Not Detected (Not Detect); Benzodiazepines Screen Urine Not Detected (Not Detect); Cannabinoid Screen Urine POSITIVE (Not Detect); Cocaine Screen Urine Not Detected (Not Detect); Fentanyl, urine Not Detected (Not Detect); Opiate Screen Urine Not Detected (Not Detect); Phencyclidine Screen Urine Not Detected (Not Detect)
--- NOTE | 2023-03-26 23:32 | PC.NURSE ---
Med rec completed
[2023-03-26 23:33] VITALS: BP 126/48; PULSE 84; RESP 14; O2SAT 94
[2023-03-26 23:44] LABS: Ethanol < 10 mg/dL
--- NOTE | 2023-03-27 02:24 | MHC.EDTECH ---
call out to shanique at 223 to book transport for pt back home, estimated eta given was 229
[2023-03-27] MEDS: LORazepam 1 MG TABLET PO (04:19)
== END 2023-03-27 05:11 | disposition home or self-care (01) ==
PROVIDERS: Emergency Provider Student in an Organized Health Care Education/Training Program
DX: B37.2 Candidiasis of skin and nail (principal); F33.1 Major depressive disorder, recurrent, moderate; R07.89 Other chest pain; R06.02 Shortness of breath; Z87.891 Personal history of nicotine dependence; Z79.899 Other long term (current) drug therapy
CPT/HCPCS: 36415; 71045; 80053; 80307; 81001; 82803; 83880; 84484; 85025; 85610; 93005; 99285; S9485

== ENCOUNTER 2023-03-27 13:14 | Emergency (ER) | payer OTHER, SELFPAY ==
[2023-03-27 13:19] VITALS: BP 130/80; PULSE 92; O2SAT 99
[2023-03-27 13:26] VITALS: BP 123/74; PULSE 94; RESP 18; TEMP 36.2; O2SAT 97; BMI 50.3
--- NOTE | 2023-03-27 13:31 | MHC.CM.ED ---
[facility] Patient was d/c'd from ER 03/27 patron attendant. [facility] came to the patient's home and patient was rocking in a position. Patient was sent to the ER by [facility]. Referral made in [facility] so [facility] can follow for d/c needs.
--- NOTE | 2023-03-27 14:16 | ED.GENADULT ---
HPI - General Adult General Chief complaint: General Medical Stated complaint: PSYCH EVAL Time Seen by Provider: 03/27/23 13:38 Source: patient Mode of arrival: EMS Limitations: no limitations History of Present Illness HPI narrative: 62 yo female with hx of COPD, hypoxia on home O2, CHF, FELICIA, obesity, asthma here with c/o chronic pain and tramadol doesn't cut it. She notes she wants something more than tramadol and C[facility] won't give her anything. The patient now notes she also wants something for anxiety. No SI just seen for CP and crisis yesterday. HER VNA told her to come today and get meds. She tells me after meds she will go home and deal with it. MD complaint: anxiety and chronic pain Onset (ago): day(s) (1 worse today VNA told her to come today to get meds from the ED) Location: left, right, upper extremity and lower extremity Radiation: non-radiation Severity: moderate Quality: aching Pain Consistency: constant Relieving factors: none Exacerbating factors: none Associated symptoms: denies other symptoms Treatments prior to arrival: none Related Data Home Medications Medication Instructions Recorded Confirmed albuterol sulfate 90 mcg/actuation 2 puff inhalation Q4H PRN Dyspnea 11/23/20 03/26/23 aerosol inhaler (ProAir HFA) aspirin 81 mg tablet,delayed 81 mg PO DAILY 11/23/20 03/26/23 release fluoxetine 40 mg capsule 40 mg PO DAILY 11/23/20 03/26/23 fluticasone propionate 110 2 puff inhalation BID 11/23/20 03/26/23 mcg/actuation HFA aerosol inhaler (Flovent HFA) metoprolol succinate 50 mg 50 mg PO DAILY 11/23/20 03/26/23 tablet,extended release 24 hr simvastatin 20 mg tablet 20 mg PO BEDTIME 11/23/20 03/26/23 bumetanide 2 mg tablet 1 tab PO DAILY 06/07/21 03/26/23 cholecalciferol (vitamin D3) 25 1 cap PO DAILY 06/07/21 03/26/23 mcg (1,000 unit) capsule risperidone 1 mg tablet 1 tab PO BID 04/20/22 03/26/23 blood sugar diagnostic (Jeffyle #10 ea 06/25/22 03/26/23 Lite Strips) insulin syringe-needle U-100 1 mL #10 ea 06/25/22 03/26/23 31 gauge x 5/16 (BD Insulin Syringe Ultra-Fine) lancets 28 gauge (FreeStyle #100 ea 06/25/22 03/26/23 Lancets) gabapentin 400 mg capsule 400 mg PO BID@0900,1500 09/08/22 03/26/23 insulin glargine 100 unit/mL 50 unit subcut BID 09/08/22 03/26/23 subcutaneous solution (Lantus U-100 Insulin) nystatin 100,000 unit/gram topical 1 appl topical BID PRN Rash 09/08/22 03/26/23 powder insulin syringe-needle U-100 1 mL 09/27/22 03/26/23 31 gauge x 5/16 (BD Insulin Syringe Ultra-Fine) gabapentin 800 mg tablet 800 mg PO BEDTIME 09/28/22 03/26/23 isosorbide mononitrate 30 mg 1 tab PO DAILY 09/28/22 03/26/23 tablet,extended release 24 hr spironolactone 25 mg tablet 1 tab PO DAILY 09/28/22 03/26/23 amlodipine 10 mg tablet 10 mg PO DAILY 12/27/22 03/26/23 buspirone 10 mg tablet 10 mg PO BID 12/27/22 03/26/23 docusate sodium 100 mg capsule 100 mg PO DAILY 12/27/22 03/26/23 haloperidol 2 mg tablet 2 mg PO BEDTIME 12/27/22 03/26/23 Previous Rx's Medication Instructions Recorded insulin lispro 100 unit/mL See Protocol subcut QIDACHS #1 mL 01/16/21 subcutaneous solution (Humalog U-100 Insulin) clonidine HCl 0.1 mg tablet 0.1 mg PO TID PRN hyperarousal, 04/01/22 anxiety, panic #90 tabs bumetanide 1 mg tablet 1 mg PO BEDTIME #30 tabs 04/08/22 hydralazine 25 mg tablet 25 mg PO BID #60 tabs 04/08/22 blood-glucose meter (FreeStyle #1 ea 09/02/22 Lite Meter kit) lorazepam 0.5 mg tablet (Ativan) 0.5 mg PO BID PRN anxiety #6 tabs 12/16/22 tramadol 50 mg tablet 50 mg PO Q6H PRN pain #20 tabs 03/06/23 nystatin 100,000 unit/gram topical 1 appl topical BID #60 grams 03/27/23 powder Allergies Allergy/AdvReac Type Severity Reaction Status Date / Time ibuprofen Allergy Intermediate vommiting, Verified 03/25/23 10:42 itching acetaminophen [Tylenol] Allergy Mild Unknown Verified 03/25/23 10:42 morphine AdvReac Intermediate vomiting Verified 03/25/23 10:42 vancomycin AdvReac Intermediate Itching Verified 03/25/23 10:42 codeine AdvReac Anaphylaxis Verified 03/25/23 10:42 Review of Systems Review of Systems: Constitutional : No Fever, No Chills Cardiovascular : No Chest Pain, No SOB Respiratory : No Cough, No Dyspnea Gastrointestinal : No Nausea, No Vomiting, No Diarrhea, No abdominal Pain Genitourinary : No Dysuria, No Hematuria Musculoskeletal : positive joint pain, No Myalgias, No Joint Swelling Skin : No Skin lacerations, No rash Neuro : No Weakness, No Numbness, No Loss of Consciousness, No Dizziness, No Headache Psych : pos Anxiety/Panic, No Depression All other systems reviewed and are negative [facility] Past Medical History Attestation statement: The following information was validated with the patient. Source: old records reviewed Medical History Uncontrolled type 2 diabetes mellitus with hyperglycemia FELICIA (acute kidney injury) Abdominal pain Constipation Chronic respiratory failure with hypoxia Stercoral colitis Decubitus ulcer Hypoxia CHF exacerbation MDD (major depressive disorder), recurrent episode, moderate Adjustment disorder with mixed anxiety and depressed mood Panic disorder Cellulitis of right lower extremity Stasis dermatitis of both legs DANIEL (obstructive sleep apnea) Asthma Hyperglycemia due to diabetes mellitus COPD (chronic obstructive pulmonary disease) Congestive heart failure Obesity hypoventilation syndrome CKD (chronic kidney disease) stage 3, GFR 30-59 ml/min NICM (nonischemic cardiomyopathy) Acute on chronic combined systolic and diastolic CHF (congestive heart failure) Morbid obesity Diabetic neuropathy, painful Chronic pain High cholesterol Depression Hypertension Diabetes Surgical History Hx of cholecystectomy Family History Family History Mother HTN (hypertension) Diabetes CAD (coronary artery disease) Father HTN (hypertension) Diabetes CAD (coronary artery disease) Maternal Grandmother CAD (coronary artery disease) Social History Social History Household Members: None Household Members Other:: GRANDSON Housing: Apartment Housing 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 Do you presently have visiting nurse or other home services: Yes Alcohol intake: never Patient Tobacco Use Status: Former Tobacco user Quit Date: 1999 Tobacco use type: Cigarette Years Smoked: 38 Smoked in Last 30 Days: No Second Hand Smoke Exposure: No Use of substances other than those prescribed or required for medical reasons: No Substance Use Type: Marijuana Advance Directives: Yes Advance Directives on File: Yes Advance Directives Date on File: 12/19/20 service: No Current occupational status: disabled Physical Exam ED Vital Signs: Vital Signs - 24 hr 03/27/23 13:26 Temperature 97.2 F Pulse Rate 94 Respiratory Rate 18 Blood Pressure 123/74 Pulse Oximetry 97 Oxygen Delivery Method Nasal Cannula BMI result Body Mass Index 50.3 Appearance: Alert. Oriented X3. No acute distress. no SI Eyes: Pupils equal, round and reactive to light. ENT: Pharynx normal. Neck: Normal inspection. Neck supple. CVS: Normal heart rate and rhythm. Pulses normal. Respiratory: No respiratory distress. Breath sounds normal. Abdomen: Soft and nontender. Skin: Skin warm and dry. Normal skin color. Normal skin turgor. Extremities: No lower extremity edema. No calf ttp Neuro: Oriented X 3. No motor deficit. No sensory deficit. Medical Decision Making Medical Decision Making MDM Narrative: 62 yo female with hx of COPD, hypoxia on home O2, CHF, FELICIA, obesity, asthma here with chronic pain but on medications has services at home I will not be given opiates at this time. She will be given low dose ativan and DC home she takes it at home PRN. She denies SI. She can follow up with her doctor. Differential Diagnosis Differential Diagnoses: The differential diagnosis associated with the presentation includes arthritis, anxiety, chronic pain Admission/Observation Consideration of admission/observation: Escalation of care including admission/observation considered chronic issues can follow up with her PCP External Record Review External record reviewed: Inpatient record Tests considered The following testing was considered but not selected: xray but no new pain or trauma Social Determinants Patient?s care significantly limited by Social Determinants of Health including: Problems related to primary support group Discharge Plan Discharge Clinical Impression: Anxiety Patient Disposition: Home, Self-Care Instructions: Anxiety (ED) Additional Instructions: please talk to your doctor about your chronic complaints including pain and anxiety. you can call the national hotline for suicidal thoughts at 988 Prescriptions: No Action (DME) blood-glucose meter [FreeStyle Lite Meter] Kit See Rx Instructions .Route Qty: 1 0RF Rx Instructions: As directed checks POC 4 X/day insulin lispro [Humalog U-100 Insulin] 100 unit/mL Solution See [facility] 0[facility] Protocol: Insulin Correction Scale Less than or equal to 110 ---- Give (units): 0 111 to 150 Give (units): 0 151 to 200 Give (units): 2 201 to 250 Give (units): 4 251 to 300 Give (units): 6 301 to 350 Give (units): 8 Greater than 350 Give (units): 10 Call MD if Blood Glucose > : 350 Rx Instructions: sliding scale fluoxetine 40 mg capsule 40 mg PO DAILY metoprolol succinate 50 mg tablet extended release 24 hr 50 mg PO DAILY aspirin 81 mg tablet,delayed release (DR/EC) 81 mg PO DAILY simvastatin 20 mg tablet 20 mg PO BEDTIME albuterol sulfate [ProAir HFA] 90 mcg/actuation HFA aerosol inhaler 2 puff inhalation Q4H PRN (Reason: Dyspnea) fluticasone propionate [Flovent HFA] 110 mcg/actuation HFA aerosol inhaler 2 puff inhalation BID bumetanide 2 mg tablet 1 tab PO DAILY cholecalciferol (vitamin D3) 25 mcg (1,000 unit) capsule 1 cap PO DAILY gabapentin 400 mg Capsule 400 mg PO BID@0900,1500 nystatin 100,000 unit/gram Powder 1 appl TOPICAL BID PRN (Reason: Rash) Protocol: Apply to: Apply to: under breasts, around groin Rx Instructions: apply to groin area, and under breasts insulin glargine [Lantus U-100 Insulin] 100 unit/mL solution 50 unit subcut BID (DME) insulin syringe-needle U-100 [BD Insulin Syringe Ultra-Fine] 1 mL 31 gauge x 5/16 syringe MISCELLANEOUS QID isosorbide mononitrate 30 mg tablet extended release 24 hr 1 tab PO DAILY spironolactone 25 mg tablet 1 tab PO DAILY gabapentin 800 mg Tablet 800 mg PO BEDTIME clonidine HCl 0.1 mg Tablet 0.1 mg PO TID PRN (Reason: hyperarousal, anxiety, panic) Qty: 90 0RF Protocol: Hold for SBP< HOLD for SBP < : 90 hydralazine 25 mg Tablet 25 mg PO BID Qty: 60 0RF Protocol: Hold for SBP< HOLD for SBP < : 90 bumetanide 1 mg Tablet 1 mg PO BEDTIME Qty: 30 0RF Protocol: Hold for SBP< HOLD for SBP < : 90 risperidone 1 mg tablet 1 tab PO BID tramadol 50 mg tablet 50 mg PO Q6H PRN (Reason: pain) Qty: 20 0RF lorazepam [Ativan] 0.5 mg tablet 0.5 mg PO BID PRN (Reason: anxiety) Qty: 6 0RF buspirone 10 mg Tablet 10 mg PO BID amlodipine 10 mg Tablet 10 mg PO DAILY docusate sodium 100 mg capsule 100 mg PO DAILY haloperidol [Haldol] 2 mg Tablet 2 mg PO BEDTIME nystatin 100,000 unit/gram powder 1 appl topical BID Qty: 60 0RF (DME) FreeStyle Lite Strips Strip See Rx Instructions .ROUTE BID Qty: 10 Rx Instructions: As directed (DME) lancets [FreeStyle Lancets] 28 gauge misc See Rx Instructions .ROUTE QID Qty: 100 Rx Instructions: As directed (DME) insulin syringe-needle U-100 [BD Insulin Syringe Ultra-Fine] 1 mL 31 gauge x 5/16 syringe See Rx Instructions .ROUTE QID Qty: 10 Rx Instructions: As directed
[2023-03-27] MEDS: LORazepam 0.5 MG TABLET 0.25 MG PO (14:34)
--- NOTE | 2023-03-27 15:25 | PC.NURSE ---
pt medicated, resting comfortably no s/sx of increased anxiety/distress
[2023-03-27 15:47] VITALS: BP 122/63; PULSE 64; RESP 16; TEMP 36.8; O2SAT 94
--- NOTE | 2023-03-27 15:48 | MHC.EDTECH ---
THIS PCT ASSUMED CARE OF PT AT 1500 ,PT SLEEPING ,VITALS SIGN TAKEN ,PT WAITING FOR EMS FOR RIDE HOME .
[2023-03-27 18:30] VITALS: BP 124/62; PULSE 62; RESP 16; TEMP 36.6; O2SAT 94
--- NOTE | 2023-03-27 18:31 | MHC.EDTECH ---
PATIENT WAS INCONTINENT OF URINE ,CARE GIVEN AND BEDDING CHANGE ,PT WAITING FOR TRANSPORT TO BRING HER HOME .
== END 2023-03-27 18:54 | disposition home or self-care (01) ==
PROVIDERS: Emergency Provider Emergency Medicine; PCP Internal Medicine
DX: F41.9 Anxiety disorder, unspecified (principal); G89.4 Chronic pain syndrome; E11.22 Type 2 diabetes mellitus with diabetic chronic kidney disease; I13.0 Hypertensive heart and chronic kidney disease with heart failure and stage 1 through stage 4 chronic kidney disease, or unspecified chronic kidney disease; N18.30 Chronic kidney disease, stage 3 unspecified; I50.9 Heart failure, unspecified; J44.9 Chronic obstructive pulmonary disease, unspecified; Z99.81 Dependence on supplemental oxygen; E66.01 Morbid (severe) obesity due to excess calories; Z68.43 Body mass index [BMI] 50.0-59.9, adult; Z87.891 Personal history of nicotine dependence; Z79.82 Long term (current) use of aspirin; Z79.899 Other long term (current) drug therapy; Z79.4 Long term (current) use of insulin
CPT/HCPCS: 99283; 99284

== ENCOUNTER 2023-04-03 13:50 | Emergency (ER) | payer OTHER, SELFPAY ==
--- NOTE | 2023-04-03 13:58 | PC.NURSE ---
per visiting nurse: increased anxiety, tearful during nurse visit, o2 applied at 2L for increased sob, unknown if pt took clonadine this am, appt w PCP on thursday to discuss med adjustment due to increased anxiety.
[2023-04-03 14:04] VITALS: BP 130/82; BP 142/63; PULSE 102; PULSE 86; RESP 18; TEMP 36.9; O2SAT 99; BMI 50.9
--- NOTE | 2023-04-03 14:08 | PC.NURSE ---
Patient arrived via ems, crying continually stating help me help me. Patient states she is having anxiety. Unable to say why she is anxious. 99% on RA. bp 142/63. Reports chronic lower back pain
[2023-04-03] MEDS: LORazepam 2 MG/ML VIAL IM (14:56)
--- NOTE | 2023-04-03 17:23 | ED.ANXIETY ---
HPI - Anxiety General Chief Complaint: Anxiety Stated Complaint: PANIC ATTACK, 3L O2 PER EMS Time Seen by Provider: 04/03/23 14:49 Source: patient Mode of arrival: EMS Limitations: no limitations History of Present Illness HPI narrative: 62-year-old female who presents emergency department by ambulance for evaluation of panic/anxiety attack. Patient states that this happens to her often. She does not know which triggered her anxiety attack. She states she feels very short of breath and extremely anxious. Patient is seen here frequently for multiple different complaints including anxiety and panic attacks. She denied fever, chills, nausea, vomiting, diarrhea, abdominal pain, change in bowel movements. She states she takes medications for anxiety but she does not know the name of these medications. Related Data Home Medications Medication Instructions Recorded Confirmed albuterol sulfate 90 mcg/actuation 2 puff inhalation Q4H PRN Dyspnea 11/23/20 03/26/23 aerosol inhaler (ProAir HFA) aspirin 81 mg tablet,delayed 81 mg PO DAILY 11/23/20 03/26/23 release fluoxetine 40 mg capsule 40 mg PO DAILY 11/23/20 03/26/23 fluticasone propionate 110 2 puff inhalation BID 11/23/20 03/26/23 mcg/actuation HFA aerosol inhaler (Flovent HFA) metoprolol succinate 50 mg 50 mg PO DAILY 11/23/20 03/26/23 tablet,extended release 24 hr simvastatin 20 mg tablet 20 mg PO BEDTIME 11/23/20 03/26/23 bumetanide 2 mg tablet 1 tab PO DAILY 06/07/21 03/26/23 cholecalciferol (vitamin D3) 25 1 cap PO DAILY 06/07/21 03/26/23 mcg (1,000 unit) capsule risperidone 1 mg tablet 1 tab PO BID 04/20/22 03/26/23 blood sugar diagnostic (FreeStyle #10 ea 06/25/22 03/26/23 Lite Strips) insulin syringe-needle U-100 1 mL #10 ea 06/25/22 03/26/23 31 gauge x 5/16 (BD Insulin Syringe Ultra-Fine) lancets 28 gauge (FreeStyle #100 ea 06/25/22 03/26/23 Lancets) gabapentin 400 mg capsule 400 mg PO BID@0900,1500 09/08/22 03/26/23 insulin glargine 100 unit/mL 50 unit subcut BID 09/08/22 03/26/23 subcutaneous solution (Lantus U-100 Insulin) nystatin 100,000 unit/gram topical 1 appl topical BID PRN Rash 09/08/22 03/26/23 powder insulin syringe-needle U-100 1 mL 09/27/22 03/26/23 31 gauge x 5/16 (BD Insulin Syringe Ultra-Fine) gabapentin 800 mg tablet 800 mg PO BEDTIME 09/28/22 03/26/23 isosorbide mononitrate 30 mg 1 tab PO DAILY 09/28/22 03/26/23 tablet,extended release 24 hr spironolactone 25 mg tablet 1 tab PO DAILY 09/28/22 03/26/23 amlodipine 10 mg tablet 10 mg PO DAILY 12/27/22 03/26/23 buspirone 10 mg tablet 10 mg PO BID 12/27/22 03/26/23 docusate sodium 100 mg capsule 100 mg PO DAILY 12/27/22 03/26/23 haloperidol 2 mg tablet 2 mg PO BEDTIME 12/27/22 03/26/23 Previous Rx's Medication Instructions Recorded insulin lispro 100 unit/mL See Protocol subcut QIDACHS #1 mL 01/16/21 subcutaneous solution (Humalog U-100 Insulin) clonidine HCl 0.1 mg tablet 0.1 mg PO TID PRN hyperarousal, 04/01/22 anxiety, panic #90 tabs bumetanide 1 mg tablet 1 mg PO BEDTIME #30 tabs 04/08/22 hydralazine 25 mg tablet 25 mg PO BID #60 tabs 04/08/22 blood-glucose meter (FreeStyle #1 ea 09/02/22 Lite Meter kit) lorazepam 0.5 mg tablet (Ativan) 0.5 mg PO BID PRN anxiety #6 tabs 12/16/22 tramadol 50 mg tablet 50 mg PO Q6H PRN pain #20 tabs 03/06/23 nystatin 100,000 unit/gram topical 1 appl topical BID #60 grams 03/27/23 powder lorazepam 1 mg tablet (Ativan) 1 mg PO TID PRN anxiety #10 tabs 04/03/23 Allergies Allergy/AdvReac Type Severity Reaction Status Date / Time ibuprofen Allergy Intermediate vommiting, Verified 03/25/23 10:42 itching acetaminophen [Tylenol] Allergy Mild Unknown Verified 03/25/23 10:42 morphine AdvReac Intermediate vomiting Verified 03/25/23 10:42 vancomycin AdvReac Intermediate Itching Verified 03/25/23 10:42 codeine AdvReac Anaphylaxis Verified 03/25/23 10:42 Review of Systems Review of Systems: Yes all other systems are reviewed and are negative [facility] Past Medical History Medical History Uncontrolled type 2 diabetes mellitus with hyperglycemia FELICIA (acute kidney injury) Abdominal pain Constipation Chronic respiratory failure with hypoxia Stercoral colitis Decubitus ulcer Hypoxia CHF exacerbation MDD (major depressive disorder), recurrent episode, moderate Adjustment disorder with mixed anxiety and depressed mood Panic disorder Cellulitis of right lower extremity Stasis dermatitis of both legs DANIEL (obstructive sleep apnea) Asthma Hyperglycemia due to diabetes mellitus COPD (chronic obstructive pulmonary disease) Congestive heart failure Obesity hypoventilation syndrome CKD (chronic kidney disease) stage 3, GFR 30-59 ml/min NICM (nonischemic cardiomyopathy) Acute on chronic combined systolic and diastolic CHF (congestive heart failure) Morbid obesity Diabetic neuropathy, painful Chronic pain High cholesterol Depression Hypertension Diabetes Surgical History Hx of cholecystectomy Family History Family History Mother HTN (hypertension) Diabetes CAD (coronary artery disease) Father HTN (hypertension) Diabetes CAD (coronary artery disease) Maternal Grandmother CAD (coronary artery disease) Social History Social History Household Members: None Household Members Other:: GRANDSON Housing: Apartment Housing Other:: with registered nurse behavioral health Do you presently have visiting nurse or other home services: Yes Alcohol intake: former Patient Tobacco Use Status: Former Tobacco user Quit Date: 1999 Tobacco use type: Cigarette Years Smoked: 38 Smoked in Last 30 Days: No Second Hand Smoke Exposure: No Use of substances other than those prescribed or required for medical reasons: No Substance Use Type: Marijuana Advance Directives: Yes Advance Directives on File: Yes Advance Directives Date on File: 12/19/20 service: No Current occupational status: disabled Physical Exam Vital Signs: Vital Signs: Last Vital Signs Temp 98.5 F 04/03/23 14:04 Pulse 102 H 04/03/23 14:04 Resp 18 04/03/23 14:04 BP 142/63 H 04/03/23 14:04 Pulse Ox 99 04/03/23 14:04 O2 Del Method Room Air 04/03/23 14:04 BMI result Body Mass Index 50.9 Vital signs revealed an elevated blood pressure of 142/63 and an elevated heart rate of 102. Exam: General: Patient is shouting that she needs help with her anxiety, appears to be hyperventilating and appears to be having acute panic attack Head: Normocephalic, atraumatic EENT: PERRL, Lids normal, sclera normal, conjunctiva normal, nose normal , ears normal, throat without erythema or exudates Neck: Supple, no adenopathy, trachea midline and nontender Lung: breath sounds symmetric, no wheezing, rales or rhonchi Chest: symmetric movement, nontender Heart: regular rate and rhythm, normal S1, S2 no murmurs or rubs Abdomen: soft, non-tender, nondistended, normal bowel sounds Back: no vertebral tenderness, no CVAT Extremities: no deformities, moves all extremities symmetrically Skin: no rashes, no lesion, normal color and warmth Neuro: Acute anxiety, cranial nerves intact, moves all extremities symmetrically 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 The patient's presentation consistent with panic attack, she was given Ativan 2 mg IM with improvement of her symptoms. Patient has been seen here in the emergency department multiple times for different complaints including anxiety and panic attacks. The patient was advised to continue taking her medications. I did prescribe Ativan 1 mg tablets, 1 pill 3 times a day as needed for anxiety dispense 10 pills. Differential Diagnosis Differential Diagnoses: The differential diagnosis associated with the presentation includes Differential includes was not limited anxiety attack congestive heart failure, asthma attack, Discharge Plan Discharge Clinical Impression: Anxiety attack Patient Disposition: Home, Self-Care Instructions: Anxiety (ED) Additional Instructions: Your presentation is consistent with an anxiety/panic attack. Continue taking medications as prescribed by your providers. Take Ativan 1 mg pills, 1 pill every 6 hours as needed for anxiety. This medication will make you sleepy, do not drive or work while taking this medication. This medication can be addicting, if your concerned about addiction you can ask the pharmacist for less medications or do not get the prescription filled. Follow-up with your doctor in 2 days. Please return to the emergency department if your symptoms get worse or if you develop any symptoms that are concerning to you. Prescriptions: New lorazepam [Ativan] 1 mg tablet 1 mg PO TID PRN (Reason: anxiety) Qty: 10 0RF Rx Instructions: Patient may request partial fill No Action (DME) blood-glucose meter [FreeStyle Lite Meter] Kit See Rx Instructions .Route Qty: 1 0RF Rx Instructions: As directed checks POC 4 X/day insulin lispro [Humalog U-100 Insulin] 100 unit/mL Solution See Protocol subcut QIDACHS Qty: 1 0RF Protocol: Insulin Correction Scale Less than or equal to 110 ---- Give (units): 0 111 to 150 Give (units): 0 151 to 200 Give (units): 2 201 to 250 Give (units): 4 251 to 300 Give (units): 6 301 to 350 Give (units): 8 Greater than 350 Give (units): 10 Call MD if Blood Glucose > : 350 Rx Instructions: sliding scale fluoxetine 40 mg capsule 40 mg PO DAILY metoprolol succinate 50 mg tablet extended release 24 hr 50 mg PO DAILY aspirin 81 mg tablet,delayed release (DR/EC) 81 mg PO DAILY simvastatin 20 mg tablet 20 mg PO BEDTIME albuterol sulfate [ProAir HFA] 90 mcg/actuation HFA aerosol inhaler 2 puff inhalation Q4H PRN (Reason: Dyspnea) fluticasone propionate [Flovent HFA] 110 mcg/actuation HFA aerosol inhaler 2 puff inhalation BID bumetanide 2 mg tablet 1 tab PO DAILY cholecalciferol (vitamin D3) 25 mcg (1,000 unit) capsule 1 cap PO DAILY gabapentin 400 mg Capsule 400 mg PO BID@0900,1500 nystatin 100,000 unit/gram Powder 1 appl TOPICAL BID PRN (Reason: Rash) Protocol: Apply to: Apply to: under breasts, around groin Rx Instructions: apply to groin area, and under breasts insulin glargine [Lantus U-100 Insulin] 100 unit/mL solution 50 unit subcut BID (DME) insulin syringe-needle U-100 [BD Insulin Syringe Ultra-Fine] 1 mL 31 gauge x 5/16 syringe MISCELLANEOUS QID isosorbide mononitrate 30 mg tablet extended release 24 hr 1 tab PO DAILY spironolactone 25 mg tablet 1 tab PO DAILY gabapentin 800 mg Tablet 800 mg PO BEDTIME clonidine HCl 0.1 mg Tablet 0.1 mg PO TID PRN (Reason: hyperarousal, anxiety, panic) Qty: 90 0RF Protocol: Hold for SBP< HOLD for SBP < : 90 hydralazine 25 mg Tablet 25 mg PO BID Qty: 60 0RF Protocol: Hold for SBP< HOLD for SBP < : 90 bumetanide 1 mg Tablet 1 mg PO BEDTIME Qty: 30 0RF Protocol: Hold for SBP< HOLD for SBP < : 90 risperidone 1 mg tablet 1 tab PO BID tramadol 50 mg tablet 50 mg PO Q6H PRN (Reason: pain) Qty: 20 0RF lorazepam [Ativan] 0.5 mg tablet 0.5 mg PO BID PRN (Reason: anxiety) Qty: 6 0RF buspirone 10 mg Tablet 10 mg PO BID amlodipine 10 mg Tablet 10 mg PO DAILY docusate sodium 100 mg capsule 100 mg PO DAILY haloperidol [Haldol] 2 mg Tablet 2 mg PO BEDTIME nystatin 100,000 unit/gram powder 1 appl topical BID Qty: 60 0RF (DME) FreeStyle Lite Strips Strip See Rx Instructions .ROUTE BID Qty: 10 Rx Instructions: As directed (DME) lancets [FreeStyle Lancets] 28 gauge misc See Rx Instructions .ROUTE QID Qty: 100 Rx Instructions: As directed (DME) insulin syringe-needle U-100 [BD Insulin Syringe Ultra-Fine] 1 mL 31 gauge x 5/16 syringe See Rx Instructions .ROUTE QID Qty: 10 Rx Instructions: As directed
== END 2023-04-03 19:47 | disposition home or self-care (01) ==
PROVIDERS: Emergency Provider Emergency Medicine Emergency Medical Services; PCP Internal Medicine
DX: F41.0 Panic disorder [episodic paroxysmal anxiety] (principal); E11.69 Type 2 diabetes mellitus with other specified complication; I11.0 Hypertensive heart disease with heart failure; I50.9 Heart failure, unspecified; E78.5 Hyperlipidemia, unspecified; Z79.82 Long term (current) use of aspirin; Z79.899 Other long term (current) drug therapy; Z87.891 Personal history of nicotine dependence
CPT/HCPCS: 96372; 99284; J2060

== ENCOUNTER 2023-04-12 22:39 | Emergency (ER) | payer OTHER, SELFPAY ==
[2023-04-12 22:50] VITALS: BP 150/90; PULSE 100; RESP 24; O2SAT 97; BMI 49.4
[2023-04-12 22:55] VITALS: BP 150/90; PULSE 100; RESP 24; O2SAT 97
--- NOTE | 2023-04-12 22:59 | ED_ITS ---
HPI - Anxiety General Chief Complaint: Anxiety Stated Complaint: chest pains secondary to anxiety, per ems Time Seen by Provider: 04/12/23 22:55 Source: patient Mode of arrival: EMS Limitations: no limitations History of Present Illness HPI narrative: 62-year-old female with a history of anxiety, asthma, diabetes mellitus, congestive heart failure who presents emergency department for evaluation of anxiety/panic attack. She states that she was in a bad mood today since noon time. She states that she became very anxious. She states that the anxiety became significantly worse, she states that she felt lightheaded, dizzy and had chest pain therefore she called an ambulance was brought to emergency department. In the emergency department the patient keeps repeating ?please help me, please help me, please help me ?. Patient has similar presentation on 04/03/2023 and was seen by me and was treated with Ativan 2 mg IM and I did give her prescription for Ativan 1 mg pills every 6 hours as needed for anxiety.. Patient has been seen frequently here in the emergency department this year and this is her 17 to visit. Related Data Home Medications Medication Instructions Recorded Confirmed albuterol sulfate 90 mcg/actuation 2 puff inhalation Q4H PRN Dyspnea 11/23/20 03/26/23 aerosol inhaler (ProAir HFA) aspirin 81 mg tablet,delayed 81 mg PO DAILY 11/23/20 03/26/23 release fluoxetine 40 mg capsule 40 mg PO DAILY 11/23/20 03/26/23 fluticasone propionate 110 2 puff inhalation BID 11/23/20 03/26/23 mcg/actuation HFA aerosol inhaler (Flovent HFA) metoprolol succinate 50 mg 50 mg PO DAILY 11/23/20 03/26/23 tablet,extended release 24 hr simvastatin 20 mg tablet 20 mg PO BEDTIME 11/23/20 03/26/23 bumetanide 2 mg tablet 1 tab PO DAILY 06/07/21 03/26/23 cholecalciferol (vitamin D3) 25 1 cap PO DAILY 06/07/21 03/26/23 mcg (1,000 unit) capsule risperidone 1 mg tablet 1 tab PO BID 04/20/22 03/26/23 blood sugar diagnostic (FreeStyle #10 ea 06/25/22 03/26/23 Lite Strips) insulin syringe-needle U-100 1 mL #10 ea 06/25/22 03/26/23 31 gauge x 5/16 (BD Insulin Syringe Ultra-Fine) lancets 28 gauge (FreeStyle #100 ea 06/25/22 03/26/23 Lancets) gabapentin 400 mg capsule 400 mg PO BID@0900,1500 09/08/22 03/26/23 insulin glargine 100 unit/mL 50 unit subcut BID 09/08/22 03/26/23 subcutaneous solution (Lantus U-100 Insulin) nystatin 100,000 unit/gram topical 1 appl topical BID PRN Rash 09/08/22 03/26/23 powder insulin syringe-needle U-100 1 mL 09/27/22 03/26/23 31 gauge x 5/16 (BD Insulin Syringe Ultra-Fine) gabapentin 800 mg tablet 800 mg PO BEDTIME 09/28/22 03/26/23 isosorbide mononitrate 30 mg 1 tab PO DAILY 09/28/22 03/26/23 tablet,extended release 24 hr spironolactone 25 mg tablet 1 tab PO DAILY 09/28/22 03/26/23 amlodipine 10 mg tablet 10 mg PO DAILY 12/27/22 03/26/23 buspirone 10 mg tablet 10 mg PO BID 12/27/22 03/26/23 docusate sodium 100 mg capsule 100 mg PO DAILY 12/27/22 03/26/23 haloperidol 2 mg tablet 2 mg PO BEDTIME 12/27/22 03/26/23 Previous Rx's Medication Instructions Recorded insulin lispro 100 unit/mL See Protocol subcut QIDACHS #1 mL 01/16/21 subcutaneous solution (Humalog U-100 Insulin) clonidine HCl 0.1 mg tablet 0.1 mg PO TID PRN hyperarousal, 04/01/22 anxiety, panic #90 tabs bumetanide 1 mg tablet 1 mg PO BEDTIME #30 tabs 04/08/22 hydralazine 25 mg tablet 25 mg PO BID #60 tabs 04/08/22 blood-glucose meter (FreeStyle #1 ea 09/02/22 Lite Meter kit) lorazepam 0.5 mg tablet (Ativan) 0.5 mg PO BID PRN anxiety #6 tabs 12/16/22 tramadol 50 mg tablet 50 mg PO Q6H PRN pain #20 tabs 03/06/23 nystatin 100,000 unit/gram topical 1 appl topical BID #60 grams 03/27/23 powder lorazepam 1 mg tablet (Ativan) 1 mg PO TID PRN anxiety #10 tabs 04/03/23 Allergies Allergy/AdvReac Type Severity Reaction Status Date / Time ibuprofen Allergy Intermediate vommiting, Verified 03/25/23 10:42 itching acetaminophen [Tylenol] Allergy Mild Unknown Verified 03/25/23 10:42 morphine AdvReac Intermediate vomiting Verified 03/25/23 10:42 vancomycin AdvReac Intermediate Itching Verified 03/25/23 10:42 codeine AdvReac Anaphylaxis Verified 03/25/23 10:42 Review of Systems Review of Systems: Yes all other systems are reviewed and are negative PMFSH Past Medical History Medical History Uncontrolled type 2 diabetes mellitus with hyperglycemia FELICIA (acute kidney injury) Abdominal pain Constipation Chronic respiratory failure with hypoxia Stercoral colitis Decubitus ulcer Hypoxia CHF exacerbation MDD (major depressive disorder), recurrent episode, moderate Adjustment disorder with mixed anxiety and depressed mood Panic disorder Cellulitis of right lower extremity Stasis dermatitis of both legs DANIEL (obstructive sleep apnea) Asthma Hyperglycemia due to diabetes mellitus COPD (chronic obstructive pulmonary disease) Congestive heart failure Obesity hypoventilation syndrome CKD (chronic kidney disease) stage 3, GFR 30-59 ml/min NICM (nonischemic cardiomyopathy) Acute on chronic combined systolic and diastolic CHF (congestive heart failure) Morbid obesity Diabetic neuropathy, painful Chronic pain High cholesterol Depression Hypertension Diabetes Surgical History Hx of cholecystectomy Family History Family History Mother HTN (hypertension) Diabetes CAD (coronary artery disease) Father HTN (hypertension) Diabetes CAD (coronary artery disease) Maternal Grandmother CAD (coronary artery disease) Social History Social History Household Members: None Household Members Other:: GRANDSON Housing: Apartment 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 Do you presently have visiting nurse or other home services: Yes Alcohol intake: never Patient Tobacco Use Status: Former Tobacco user Quit Date: 1999 Tobacco use type: Cigarette Years Smoked: 38 Smoked in Last 30 Days: No Second Hand Smoke Exposure: No Use of substances other than those prescribed or required for medical reasons: No Substance Use Type: Marijuana Advance Directives: Yes Advance Directives on File: Yes Advance Directives Date on File: 12/19/20 Patient : No service: No Current occupational status: disabled Physical Exam Vital Signs: Vital Signs: Last Vital Signs Temp 98.9 F 04/12/23 23:09 Pulse 100 04/12/23 22:55 Resp 22 H 04/12/23 23:09 BP 159/64 H 04/12/23 23:09 Pulse Ox 98 04/12/23 23:09 O2 Del Method Nasal Cannula 04/12/23 23:09 O2 Flow Rate 2 04/12/23 23:09 Oxygen Flow Rate 2 04/12/23 22:50 BMI result Body Mass Index 49.4 Vital signs revealed elevated heart rate 100, elevated respiratory 24 elevated blood pressure 150/90 Exam: General: Awake, alert , she appears to be very anxious, she shaking, she keeps repeating please help me. Head: Normocephalic, atraumatic EENT: PERRL, Lids normal, sclera normal, conjunctiva normal, nose normal , ears normal, throat without erythema or exudates Neck: Supple, no adenopathy, trachea midline and nontender Lung: breath sounds symmetric, no wheezing, rales or rhonchi Chest: symmetric movement, nontender Heart: regular rate and rhythm, normal S1, S2 no murmurs or rubs Abdomen: soft, non-tender, nondistended, normal bowel sounds Back: no vertebral tenderness, no CVAT Extremities: no deformities, moves all extremities symmetrically Neuro: Awake, alert, oriented, cranial nerves intact, moves all extremities symmetrically Psych: Very anxious Medications Administered Discontinued Medications Generic Name Dose Route Start Last Admin Trade Name Trungq PRN Reason Stop Dose Admin Lorazepam 2 mg 04/12/23 22:58 04/12/23 23:12 Lorazepam 1 Mg Tablet PO 04/12/23 22:59 2 mg ONCE STA Administration Lorazepam 2 mg 04/12/23 23:32 04/12/23 23:42 Lorazepam 2 Mg/Ml Vial IM 04/12/23 23:33 2 mg ONCE STA Administration Olanzapine 10 mg 04/12/23 22:58 04/12/23 23:13 Olanzapine 10 Mg Tablet PO 04/12/23 22:59 10 mg ONCE STA Administration Medical Decision Making Medical Decision Making MDM Narrative: 62-year-old female with history of asthma, diabetes mellitus, congestive heart failure, anxiety, who presents emergency department for evaluation of acute panic attack. Patient had a similar presentation on 04/03/2023 and was evaluated by me at that time, she was medicated with Ativan IM and also given a prescription for Ativan. I ordered Ativan 2 mg orally Zyprexa 10 mg orally help with her anxiety. 0009: The patient was initially treated with Ativan 2 mg orally and Zyprexa 10 mg orally with only minimal effect. She was given a dose of Ativan 2 mg IM with improvement of her symptoms. Patient states she is feeling better and wants to go home. Patient was given printed and verbal instructions and discharged home. Differential Diagnosis Differential Diagnoses: The differential diagnosis associated with the presentation includes Differential diagnosis includes was not limited to anxiety, panic attack, depression Chronic Conditions Patient?s care impacted by: Diabetes and Other (Anxiety) Discharge Plan Discharge Clinical Impression: Anxiety attack Patient Disposition: Home, Self-Care Instructions: Panic Attack (ED) Additional Instructions: Your treated with Ativan 2 mg IM, Ativan 2 mg orally and Zyprexa 10 mg orally. These medications will make you sleepy. Therefore you to go home and go to sleep. You need to follow-up with your doctor for further treatment of your anxiety disorder. Continue taking medications as prescribed. Follow-up with your doctor in 2 days. Please return to the emergency department if your symptoms get worse or if you develop any symptoms that are concerning to you. Prescriptions: No Action (DME) blood-glucose meter [FreeStyle Lite Meter] Kit See Rx Instructions .Route Qty: 1 0RF Rx Instructions: As directed checks POC 4 X/day insulin lispro [Humalog U-100 Insulin] 100 unit/mL Solution See Protocol subcut QIDACHS Qty: 1 0RF Protocol: Insulin Correction Scale Less than or equal to 110 ---- Give (units): 0 111 to 150 Give (units): 0 151 to 200 Give (units): 2 201 to 250 Give (units): 4 251 to 300 Give (units): 6 301 to 350 Give (units): 8 Greater than 350 Give (units): 10 Call MD if Blood Glucose > : 350 Rx Instructions: sliding scale fluoxetine 40 mg capsule 40 mg PO DAILY metoprolol succinate 50 mg tablet extended release 24 hr 50 mg PO DAILY aspirin 81 mg tablet,delayed release (DR/EC) 81 mg PO DAILY simvastatin 20 mg tablet 20 mg PO BEDTIME albuterol sulfate [ProAir HFA] 90 mcg/actuation HFA aerosol inhaler 2 puff inhalation Q4H PRN (Reason: Dyspnea) fluticasone propionate [Flovent HFA] 110 mcg/actuation HFA aerosol inhaler 2 puff inhalation BID bumetanide 2 mg tablet 1 tab PO DAILY cholecalciferol (vitamin D3) 25 mcg (1,000 unit) capsule 1 cap PO DAILY gabapentin 400 mg Capsule 400 mg PO BID@0900,1500 nystatin 100,000 unit/gram Powder 1 appl TOPICAL BID PRN (Reason: Rash) Protocol: Apply to: Apply to: under breasts, around groin Rx Instructions: apply to groin area, and under breasts insulin glargine [Lantus U-100 Insulin] 100 unit/mL solution 50 unit subcut BID (DME) insulin syringe-needle U-100 [BD Insulin Syringe Ultra-Fine] 1 mL 31 gauge x 5/16 syringe MISCELLANEOUS QID isosorbide mononitrate 30 mg tablet extended release 24 hr 1 tab PO DAILY spironolactone 25 mg tablet 1 tab PO DAILY gabapentin 800 mg Tablet 800 mg PO BEDTIME clonidine HCl 0.1 mg Tablet 0.1 mg PO TID PRN (Reason: hyperarousal, anxiety, panic) Qty: 90 0RF Protocol: Hold for SBP< HOLD for SBP < : 90 hydralazine 25 mg Tablet 25 mg PO BID Qty: 60 0RF Protocol: Hold for SBP< HOLD for SBP < : 90 bumetanide 1 mg Tablet 1 mg PO BEDTIME Qty: 30 0RF Protocol: Hold for SBP< HOLD for SBP < : 90 risperidone 1 mg tablet 1 tab PO BID tramadol 50 mg tablet 50 mg PO Q6H PRN (Reason: pain) Qty: 20 0RF lorazepam [Ativan] 1 mg tablet 1 mg PO TID PRN (Reason: anxiety) Qty: 10 0RF Rx Instructions: Patient may request partial fill lorazepam [Ativan] 0.5 mg tablet 0.5 mg PO BID PRN (Reason: anxiety) Qty: 6 0RF buspirone 10 mg Tablet 10 mg PO BID amlodipine 10 mg Tablet 10 mg PO DAILY docusate sodium 100 mg capsule 100 mg PO DAILY haloperidol [Haldol] 2 mg Tablet 2 mg PO BEDTIME nystatin 100,000 unit/gram powder 1 appl topical BID Qty: 60 0RF (DME) FreeStyle Lite Strips Strip See Rx Instructions .ROUTE BID Qty: 10 Rx Instructions: As directed (DME) lancets [FreeStyle Lancets] 28 gauge misc See Rx Instructions .ROUTE QID Qty: 100 Rx Instructions: As directed (DME) insulin syringe-needle U-100 [BD Insulin Syringe Ultra-Fine] 1 mL 31 gauge x 5/16 syringe See Rx Instructions .ROUTE QID Qty: 10 Rx Instructions: As directed
[2023-04-12 23:09] VITALS: BP 159/64; RESP 22; TEMP 37.2; O2SAT 98
[2023-04-12] MEDS: LORazepam 1 MG TABLET 2 MG PO (23:12)
[2023-04-12] MEDS: OLANZapine 10 MG TABLET PO (23:13)
[2023-04-12] MEDS: LORazepam 2 MG/ML VIAL IM (23:42)
--- NOTE | 2023-04-13 00:27 | MHC.EDTECH ---
Call out to [facility] @[phone] to book transport back home. Patient is on O2 20-25 MINS ETA
== END 2023-04-13 01:02 | disposition home or self-care (01) ==
PROVIDERS: Emergency Provider Emergency Medicine Emergency Medical Services; PCP Internal Medicine
DX: F41.1 Generalized anxiety disorder (principal); F43.0 Acute stress reaction; R07.89 Other chest pain; F41.0 Panic disorder [episodic paroxysmal anxiety]; Z87.891 Personal history of nicotine dependence; Z79.899 Other long term (current) drug therapy
CPT/HCPCS: 96372; 99284; J2060

== ENCOUNTER 2023-04-26 23:13 | Inpatient (IN) | payer OTHER, SELFPAY ==
[2023-04-26 23:41] VITALS: BP 116/96; BP 160/82; PULSE 92; PULSE 95; RESP 18; TEMP 36.6; O2SAT 96; O2SAT 97; BMI 49.4
[2023-04-27] VITALS (7 sets, daily range): BP systolic 117–144; BP diastolic 35–60; PULSE 90–100; RESP 16–20; TEMP 36.6–37.1; O2SAT 93–100; BMI 49.4
--- NOTE | 2023-04-27 01:06 | MHC.EDTECH ---
This tech Collected Urine on the Patient just in case it is needed. Has been put into a cup and tubes and labeled with PT demo labels.
--- NOTE | 2023-04-27 01:44 | ED.GENADULT ---
HPI - General Adult General Chief complaint: General Medical Stated complaint: L Arm, R Ankle Pain Time Seen by Provider: 04/27/23 01:24 Source: patient and EMS Mode of arrival: EMS Limitations: no limitations History of Present Illness HPI narrative: A 62-year-old female came in by ambulance for evaluation of left arm pain and a right ankle pain after a mechanical fall a week ago. Patient was evaluated at [facility] (records were requested). Patient lives home alone need a walker to ambulate around been having difficulty ambulating due to severe left arm pain and right ankle pain. Patient otherwise declined any new fall. Patient also is complaining of generalized weakness and overall decrease ambulation at home. Related Data Home Medications Medication Instructions Recorded Confirmed albuterol sulfate 90 mcg/actuation 2 puff inhalation Q4H PRN Dyspnea 11/23/20 03/26/23 aerosol inhaler (ProAir HFA) aspirin 81 mg tablet,delayed 81 mg PO DAILY 11/23/20 03/26/23 release fluoxetine 40 mg capsule 40 mg PO DAILY 11/23/20 03/26/23 fluticasone propionate 110 2 puff inhalation BID 11/23/20 03/26/23 mcg/actuation HFA aerosol inhaler (Flovent HFA) metoprolol succinate 50 mg 50 mg PO DAILY 11/23/20 03/26/23 tablet,extended release 24 hr simvastatin 20 mg tablet 20 mg PO BEDTIME 11/23/20 03/26/23 bumetanide 2 mg tablet 1 tab PO DAILY 06/07/21 03/26/23 cholecalciferol (vitamin D3) 25 1 cap PO DAILY 06/07/21 03/26/23 mcg (1,000 unit) capsule risperidone 1 mg tablet 1 tab PO BID 04/20/22 03/26/23 blood sugar diagnostic (FreeStyle #10 ea 06/25/22 03/26/23 Lite Strips) insulin syringe-needle U-100 1 mL #10 ea 06/25/22 03/26/23 31 gauge x 5/16 (BD Insulin Syringe Ultra-Fine) lancets 28 gauge (FreeStyle #100 ea 06/25/22 03/26/23 Lancets) gabapentin 400 mg capsule 400 mg PO BID@0900,1500 09/08/22 03/26/23 insulin glargine 100 unit/mL 50 unit subcut BID 09/08/22 03/26/23 subcutaneous solution (Lantus U-100 Insulin) nystatin 100,000 unit/gram topical 1 appl topical BID PRN Rash 09/08/22 03/26/23 powder insulin syringe-needle U-100 1 mL 09/27/22 03/26/23 31 gauge x 5/16 (BD Insulin Syringe Ultra-Fine) gabapentin 800 mg tablet 800 mg PO BEDTIME 09/28/22 03/26/23 isosorbide mononitrate 30 mg 1 tab PO DAILY 09/28/22 03/26/23 tablet,extended release 24 hr spironolactone 25 mg tablet 1 tab PO DAILY 09/28/22 03/26/23 amlodipine 10 mg tablet 10 mg PO DAILY 12/27/22 03/26/23 buspirone 10 mg tablet 10 mg PO BID 12/27/22 03/26/23 docusate sodium 100 mg capsule 100 mg PO DAILY 12/27/22 03/26/23 haloperidol 2 mg tablet 2 mg PO BEDTIME 12/27/22 03/26/23 Previous Rx's Medication Instructions Recorded insulin lispro 100 unit/mL See Protocol subcut QIDACHS #1 mL 01/16/21 subcutaneous solution (Humalog U-100 Insulin) clonidine HCl 0.1 mg tablet 0.1 mg PO TID PRN hyperarousal, 04/01/22 anxiety, panic #90 tabs bumetanide 1 mg tablet 1 mg PO BEDTIME #30 tabs 04/08/22 hydralazine 25 mg tablet 25 mg PO BID #60 tabs 04/08/22 blood-glucose meter (FreeStyle #1 ea 09/02/22 Lite Meter kit) lorazepam 0.5 mg tablet (Ativan) 0.5 mg PO BID PRN anxiety #6 tabs 12/16/22 tramadol 50 mg tablet 50 mg PO Q6H PRN pain #20 tabs 03/06/23 nystatin 100,000 unit/gram topical 1 appl topical BID #60 grams 03/27/23 powder lorazepam 1 mg tablet (Ativan) 1 mg PO TID PRN anxiety #10 tabs 04/03/23 Allergies Allergy/AdvReac Type Severity Reaction Status Date / Time ibuprofen Allergy Intermediate vommiting, Verified 03/25/23 10:42 itching acetaminophen [Tylenol] Allergy Mild Unknown Verified 03/25/23 10:42 morphine AdvReac Intermediate vomiting Verified 03/25/23 10:42 vancomycin AdvReac Intermediate Itching Verified 03/25/23 10:42 codeine AdvReac Anaphylaxis Verified 03/25/23 10:42 Review of Systems Review of Systems: All other systems are reviewed and are negative Constitutional: Reports as per HPI and Reports no additional constitutional complaints Eyes: Reports as per HPI and Reports no additional eye complaints Reports system reviewed and no additional complaints, except as documented Cardiovascular: Reports as per HPI and Reports no additional cardiovascular complaints Respiratory: Reports as per HPI and Reports no additional respiratory complaints Gastrointestinal: Reports as per HPI and Reports no additional gastrointestinal complaints Genitourinary: Reports no additional female genitourinary complaints Musculoskeletal: Reports no additional musculoskeletal complaints Skin/Breast: Reports system reviewed and no additional complaints, except as docu Psychiatric: Reports no additional psychiatric complaints Endocrine: Reports no additional endocrine complaints Hematologic/Lymphatic: Reports no additional hematologic/lymphatic complaints Allergic/Immunologic: Reports no additional allergic/immunologic complaints Reports system reviewed and no additional complaints, except as documented and Reports Abnormal speech present [facility] Past Medical History Medical History Uncontrolled type 2 diabetes mellitus with hyperglycemia FELICIA (acute kidney injury) Abdominal pain Constipation Chronic respiratory failure with hypoxia Stercoral colitis Decubitus ulcer Hypoxia CHF exacerbation MDD (major depressive disorder), recurrent episode, moderate Adjustment disorder with mixed anxiety and depressed mood Panic disorder Cellulitis of right lower extremity Stasis dermatitis of both legs DANIEL (obstructive sleep apnea) Asthma Hyperglycemia due to diabetes mellitus COPD (chronic obstructive pulmonary disease) Congestive heart failure Obesity hypoventilation syndrome CKD (chronic kidney disease) stage 3, GFR 30-59 ml/min NICM (nonischemic cardiomyopathy) Acute on chronic combined systolic and diastolic CHF (congestive heart failure) Morbid obesity Diabetic neuropathy, painful Chronic pain High cholesterol Depression Hypertension Diabetes Surgical History Hx of cholecystectomy Family History Family History Mother HTN (hypertension) Diabetes CAD (coronary artery disease) Father HTN (hypertension) Diabetes CAD (coronary artery disease) Maternal Grandmother CAD (coronary artery disease) Social History Social History Household Members: None Household Members Other:: GRANDSON Housing: Apartment 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 Do you presently have visiting nurse or other home services: Yes Alcohol intake: never Patient Tobacco Use Status: Former Tobacco user Quit Date: 1999 Tobacco use type: Cigarette Years Smoked: 38 Second Hand Smoke Exposure: No Substance Use Type: Marijuana Advance Directives: Yes Advance Directives on File: Yes Advance Directives Date on File: 12/19/20 service: No Current occupational status: disabled Physical Exam ED Vital Signs: Vital Signs - 24 hr 04/26/23 23:41 04/27/23 01:11 04/27/23 02:00 Temperature 97.8 F 98.5 F 98.5 F Pulse Rate 92 91 98 Respiratory Rate 18 16 16 Blood Pressure 116/96 H 127/40 L 131/35 L Pulse Oximetry 97 100 100 Oxygen Delivery Method Nasal Cannula Nasal Cannula Nasal Cannula Oxygen Flow Rate 2.5 2.5 BMI result Body Mass Index 49.4 Vital signs have been reviewed and appear to be correct. Blood pressure elevated. Heart rate normal. Respiratory rate normal. Temperature normal. Oxygen saturation normal. Appearance: Alert. Oriented X3. No acute distress. Head: Normal external exam. Normocephalic. Atraumatic. No Childs signs noted. No raccoon eyes noted Eyes: PERRLA. EOMI. Conjunctiva and sclera normal. Eyelids normal. ENT: TM's Normal. Pharynx normal. Uvula midline. Moist mucous membranes. No trismus noted. No drooling noted. No muffled voice noted. Neck: Normal inspection. Neck supple. FROM. No adenopathy. Thyroid Normal. No meningeal signs. No neck mass noted. CVS: Normal heart rate and rhythm. Heart sound normal. No murmurs noted. Pulses normal throughout. Respiratory: No respiratory distress. Painless inspiration. Breath sounds normal. No wheezes/rales/rhonchi noted. Chest nontender. No accessory muscle usage noted or decreased air movement noted. Abdomen: Soft and nontender. Bowel sounds normal in all 4 quadrants. No distention noted. No organomegaly noted. No visible injury noted. Back: No CVA tenderness. Full range of motion noted. Skin: Skin warm and dry. Normal skin color. Normal skin turgor. No rashes/lesions/lacerations noted. Extremities: No lower extremity edema. Extremities exhibit normal range of motion. Extremities nontender. Neuro: Oriented X 3. Cranial nerve exam: II-XII are grossly intact No motor deficit. No sensory deficit. Reflexes normal. Course Course Course Narrative: A 62-year-old female found to be in generalized weakness and and UTI with acute renal insufficiency, patient does not meet criteria for SIRS. Will consider ceftriaxone and IV hydration and will admit. Medical Decision Making Differential Diagnosis Differential Diagnoses: The differential diagnosis associated with the presentation includes (Dehydration, UTI, sepsis, renal insufficiency, electrolyte abnormality,) Admission/Observation Consideration of admission/observation: Escalation of care including admission/observation considered Consult Healthcare Provider Management of the patient was discussed with: Hospitalist () Lab Data MDM Lab Attestation statement: I reviewed the patient's lab results. 04/27/23 02:09 04/27/23 02:09 Labs: Lab Results 04/27/23 Range/Units 02:09 WBC 10.2 (4.8-10.8) X10*3/uL RBC 3.12 L (4.20-5.50) X10*6/uL Hgb 8.2 L (12.0-16.0) g/dl Hct 26.5 L (37.0-47.0) % MCV 84.9 (80.0-98.0) fL MCH 26.3 L (27.0-33.0) pg MCHC 30.9 L (31.0-35.0) g/dl RDW 15.4 (11.0-16.0) % Plt Count 276 D (160-400) X10*3/uL MPV 8.9 L (9.4-12.3) fL Immature Gran % (Auto) 0.9 H (0.0-0.4) % Neut % (Auto) 76.6 H (45-73) % Lymph % (Auto) 12.4 L (20-40) % Harper % (Auto) 6.5 (2-11) % Eos % (Auto) 3.3 (0-4) % Baso % (Auto) 0.3 (0-2) % Lymph # (Auto) 1.3 (1.2-4.9) X10*3/uL Harper # (Auto) 0.7 (0.1-1.2) X10*3/uL Eos # (Auto) 0.3 (0.0-0.4) X10*3/uL Baso # (Auto) 0.0 (0.0-0.2) X10*3/uL Abs Immat Gran (auto) 0.09 H (0.00-0.03) X10*3/uL Absolute Neuts (auto) 7.8 (2.0-8.3) x10*3/uL Absolute Nucleated RBC 0.000 (0.0-0.012) X10*3/uL Nucleated RBC % (auto) 0.0 (0.0-0.2) /100WBC Sodium 139 (135-145) mmol/L Potassium 4.2 (3.3-5.1) mmol/L Chloride 104 (96-108) mmol/L Carbon Dioxide 22 (22-29) mmol/L Anion Gap 17 (12-20) BUN 71 H (9-16) mg/dL Creatinine 2.49 H (0.5-1.4) mg/dL Estim Creat Clear Calc 29.6 Estimated GFR 20 Random Glucose 149 H (60-115) mg/dL Calcium 9.2 (8.4-10.2) mg/dL Total Bilirubin 0.1 (0.0-1.0) mg/dL Direct Bilirubin < 0.2 (0.0-0.5) mg/dL AST 20 (5-31) U/L ALT 11 (0-31) U/L Alkaline Phosphatase 71 (39-117) U/L Total Protein 7.2 (6.5-8.0) g/dL Albumin 3.4 L (3.5-5.0) g/dL Lipase 7 L (8-78) U/L Urine Color Yellow Urine Appearance Cloudy Urine pH 5.0 (5.0-9.0) Ur Specific [place] 1.015 (1.005-1.025) Urine Protein Negative (Neg-Trace) mg/dL Urine Glucose (UA) Negative (Negative) mg/dL Urine Ketones Negative (Negative) mg/dL Urine Blood Negative (Negative) Urine Nitrite Negative (Negative) Ur Leukocyte Esterase Moderate (2+) H (Negative) Urine RBC 0-2 (0-2) /HPF Urine WBC >50 H (0-5) /HPF Ur Squamous Epith Cells 11-20 (0-2) /HPF Urine Bacteria 1+ (None Seen) Hyaline Casts >20 (0-2) /LPF Discharge Plan Discharge Clinical Impression: UTI (urinary tract infection), Dehydration, Acute on chronic renal insufficiency Patient Disposition: Admitted As Inpatient Prescriptions: No Action (DME) blood-glucose meter [FreeStyle Lite Meter] Kit See Rx Instructions .Route Qty: 1 0RF Rx Instructions: As directed checks POC 4 X/day insulin lispro [Humalog U-100 Insulin] 100 unit/mL Solution See Protocol subcut QIDACHS Qty: 1 0RF Protocol: Insulin Correction Scale Less than or equal to 110 ---- Give (units): 0 111 to 150 Give (units): 0 151 to 200 Give (units): 2 201 to 250 Give (units): 4 251 to 300 Give (units): 6 301 to 350 Give (units): 8 Greater than 350 Give (units): 10 Call MD if Blood Glucose > : 350 Rx Instructions: sliding scale fluoxetine 40 mg capsule 40 mg PO DAILY metoprolol succinate 50 mg tablet extended release 24 hr 50 mg PO DAILY aspirin 81 mg tablet,delayed release (DR/EC) 81 mg PO DAILY simvastatin 20 mg tablet 20 mg PO BEDTIME albuterol sulfate [ProAir HFA] 90 mcg/actuation HFA aerosol inhaler 2 puff inhalation Q4H PRN (Reason: Dyspnea) fluticasone propionate [Flovent HFA] 110 mcg/actuation HFA aerosol inhaler 2 puff inhalation BID bumetanide 2 mg tablet 1 tab PO DAILY cholecalciferol (vitamin D3) 25 mcg (1,000 unit) capsule 1 cap PO DAILY gabapentin 400 mg Capsule 400 mg PO BID@0900,1500 nystatin 100,000 unit/gram Powder 1 appl TOPICAL BID PRN (Reason: Rash) Protocol: Apply to: Apply to: under breasts, around groin Rx Instructions: apply to groin area, and under breasts insulin glargine [Lantus U-100 Insulin] 100 unit/mL solution 50 unit subcut BID (DME) insulin syringe-needle U-100 [BD Insulin Syringe Ultra-Fine] 1 mL 31 gauge x 5/16 syringe MISCELLANEOUS QID isosorbide mononitrate 30 mg tablet extended release 24 hr 1 tab PO DAILY spironolactone 25 mg tablet 1 tab PO DAILY gabapentin 800 mg Tablet 800 mg PO BEDTIME clonidine HCl 0.1 mg Tablet 0.1 mg PO TID PRN (Reason: hyperarousal, anxiety, panic) Qty: 90 0RF Protocol: Hold for SBP< HOLD for SBP < : 90 hydralazine 25 mg Tablet 25 mg PO BID Qty: 60 0RF Protocol: Hold for SBP< HOLD for SBP < : 90 bumetanide 1 mg Tablet 1 mg PO BEDTIME Qty: 30 0RF Protocol: Hold for SBP< HOLD for SBP < : 90 risperidone 1 mg tablet 1 tab PO BID tramadol 50 mg tablet 50 mg PO Q6H PRN (Reason: pain) Qty: 20 0RF lorazepam [Ativan] 1 mg tablet 1 mg PO TID PRN (Reason: anxiety) Qty: 10 0RF Rx Instructions: Patient may request partial fill lorazepam [Ativan] 0.5 mg tablet 0.5 mg PO BID PRN (Reason: anxiety) Qty: 6 0RF buspirone 10 mg Tablet 10 mg PO BID amlodipine 10 mg Tablet 10 mg PO DAILY docusate sodium 100 mg capsule 100 mg PO DAILY haloperidol [Haldol] 2 mg Tablet 2 mg PO BEDTIME nystatin 100,000 unit/gram powder 1 appl topical BID Qty: 60 0RF (DME) FreeStyle Lite Strips Strip See Rx Instructions .ROUTE BID Qty: 10 Rx Instructions: As directed (DME) lancets [FreeStyle Lancets] 28 gauge misc See Rx Instructions .ROUTE QID Qty: 100 Rx Instructions: As directed (DME) insulin syringe-needle U-100 [BD Insulin Syringe Ultra-Fine] 1 mL 31 gauge x 5/16 syringe See Rx Instructions .ROUTE QID Qty: 10 Rx Instructions: As directed
--- NOTE | 2023-04-27 02:36 | PC.NURSE ---
pt resting on stretcher at this time, respirations even and unlabored, skin pwd, alert and oriented x4
--- NOTE | 2023-04-27 04:17 | PM.IMHP ---
History of Present Illness Date of Service: 04/27/23 Chief Complaint: left arm and right ankle pain 62 F PMH DANIEL/ohs, chronic hypoxic respiratory failure on 2 L home O2, CHF with reduced EF, CKD 3, COPD, morbid obesity, hypertension, mood disorder, diabetes presented with left arm and right ankle pain. Patient had fall on 04/21/2023 and was evaluated in the ED at [facility] including left humeral imaging which was negative. Also noted to have acute kidney injury at that time which resolved with holding diuretics. Her fall was attributed to polypharmacy and trazodone was discontinued. She was eventually discharged home. Since being home she was unable to ambulate, only able to get to chair with help of [employer]. She was having severe pain in her left arm and right ankle and called EMS. In ED noted to have positive UA, denies dysuria. Also noted to have acute kidney injury. Review of Systems Review of Systems: Yes all other systems are reviewed and are negative [facility] Medical History Uncontrolled type 2 diabetes mellitus with hyperglycemia FELICIA (acute kidney injury) Abdominal pain Constipation Chronic respiratory failure with hypoxia Stercoral colitis Decubitus ulcer Hypoxia CHF exacerbation MDD (major depressive disorder), recurrent episode, moderate Adjustment disorder with mixed anxiety and depressed mood Panic disorder Cellulitis of right lower extremity Stasis dermatitis of both legs DANIEL (obstructive sleep apnea) Asthma Hyperglycemia due to diabetes mellitus COPD (chronic obstructive pulmonary disease) Congestive heart failure Obesity hypoventilation syndrome CKD (chronic kidney disease) stage 3, GFR 30-59 ml/min NICM (nonischemic cardiomyopathy) Acute on chronic combined systolic and diastolic CHF (congestive heart failure) Morbid obesity Diabetic neuropathy, painful Chronic pain High cholesterol Depression Hypertension Diabetes Family History Mother HTN (hypertension) Diabetes CAD (coronary artery disease) Father HTN (hypertension) Diabetes CAD (coronary artery disease) Maternal Grandmother CAD (coronary artery disease) Surgical History Hx of cholecystectomy Social History Household Members: None Household Members Other:: GRANDSON Housing: Apartment 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 Do you presently have visiting nurse or other home services: Yes Alcohol intake: never Patient Tobacco Use Status: Former Tobacco user Quit Date: 1999 Tobacco use type: Cigarette Years Smoked: 38 Second Hand Smoke Exposure: No Substance Use Type: Marijuana Advance Directives: Yes Advance Directives on File: Yes Advance Directives Date on File: 12/19/20 service: No Current occupational status: disabled Meds Allergies Allergy/AdvReac Type Severity Reaction Status Date / Time ibuprofen Allergy Intermediate vommiting, Verified 03/25/23 10:42 itching acetaminophen [Tylenol] Allergy Mild Unknown Verified 03/25/23 10:42 morphine AdvReac Intermediate vomiting Verified 03/25/23 10:42 vancomycin AdvReac Intermediate Itching Verified 03/25/23 10:42 codeine AdvReac Anaphylaxis Verified 03/25/23 10:42 Active Medications: Current Medications Glucose (Glucose Gel 15 Gm Gel..Gram.) 15 gm PO Q15M PRN; Protocol PRN Reason: per Hypoglycemia Standing Ord. Heparin Sodium (Porcine) (Heparin Sodium,Porcine 5,000 Unit/Ml Vial) 5,000 unit SUBCUT Q8H [facility] Sodium Chloride (Ns) 1,000 mls @ 999 mls/hr IV .Q1H1M ONE Stop: 04/27/23 04:47 Sodium Chloride (Ns) 1,000 mls @ 75 mls/hr IVCONT .[id number] [facility] Ceftriaxone Sodium 1 gm/ (Sodium Chloride) 50 mls @ 100 mls/hr IV Q24H [facility] Insulin Glargine (Insulin Glargine,Hum.Rec.Anlog 100 Unit/Ml 10 Ml Vial) 25 unit SUBCUT BEDTIME [facility] Insulin Human Lispro (Insulin Lispro 100 Unit/Ml 3 Ml Vial) 0 unit SUBCUT QIDACHS [facility]; Protocol Sodium Chloride (0.9 % Sodium Chloride Flush 3 Ml Syringe) 3 ml IVFLUSH QSHIFT [facility] Home Medications Medication Instructions Recorded Confirmed Last Taken Type aspirin 81 mg tablet,delayed 81 mg PO DAILY 11/23/20 04/27/23 04/26/23 History release fluticasone propionate 110 2 puff inhalation BID 11/23/20 04/27/23 03/26/23 History mcg/actuation HFA aerosol inhaler (Flovent HFA) simvastatin 20 mg tablet 20 mg PO BEDTIME 11/23/20 04/27/23 04/26/23 History risperidone 1 mg tablet 1 tab PO BID 04/20/22 04/27/23 04/26/23 History blood sugar diagnostic (FreeStyle #10 ea 06/25/22 03/26/23 Unknown History Lite Strips) insulin syringe-needle U-100 1 mL #10 ea 06/25/22 03/26/23 Unknown History 31 gauge x 5/16 (BD Insulin Syringe Ultra-Fine) lancets 28 gauge (FreeStyle #100 ea 06/25/22 03/26/23 Unknown History Lancets) gabapentin 400 mg capsule 400 mg PO BID@0900,1500 09/08/22 04/27/23 04/26/23 History insulin glargine 100 unit/mL 50 unit subcut BID 09/08/22 04/27/23 04/26/23 History subcutaneous solution (Lantus U-100 Insulin) nystatin 100,000 unit/gram topical 1 appl topical BID PRN Rash 09/08/22 04/27/23 Unknown History powder insulin syringe-needle U-100 1 mL 09/27/22 03/26/23 Unknown History 31 gauge x 5/16 (BD Insulin Syringe Ultra-Fine) isosorbide mononitrate 30 mg 1 tab PO DAILY 09/28/22 04/27/23 04/26/23 History tablet,extended release 24 hr amlodipine 10 mg tablet 10 mg PO DAILY 12/27/22 04/27/23 04/26/23 History buspirone 10 mg tablet 10 mg PO BID 12/27/22 04/27/23 04/26/23 History trazodone 50 mg tablet 50 mg PO BEDTIME 04/27/23 04/27/23 04/26/23 History Physical Exam Vital Signs and Narrative: Vital Signs: Last Vital Signs Temp 98.5 F 04/27/23 02:00 Pulse 98 04/27/23 02:00 Resp 16 04/27/23 02:00 BP 131/35 L 04/27/23 02:00 Pulse Ox 100 04/27/23 02:00 O2 Del Method Nasal Cannula 04/27/23 02:00 O2 Flow Rate 2.5 04/27/23 02:00 Oxygen Flow Rate 2 04/26/23 23:41 BMI result Body Mass Index 49.4 General: AO X 3, no acute distress Resp: CTA bilateral, no accessory muscles used CVS: S1,S2,RRR GI: soft, non tender, non distended Neuro: motor grossly intact, alert Psych: appropriate affect, appropriate insight no obvious swelling or malformations, tender to right ankle, decreased ROM due to pain Results Labs 04/27/23 02:09 04/27/23 02:09 Labs: Laboratory Results - last 24 hr 04/27/23 02:09 MCV 84.9 MCH 26.3 L MCHC 30.9 L RDW 15.4 Plt Count 276 D MPV 8.9 L Immature Gran % (Auto) 0.9 H Neut % (Auto) 76.6 H Lymph % (Auto) 12.4 L [place] % (Auto) 6.5 Eos % (Auto) 3.3 Baso % (Auto) 0.3 Lymph # (Auto) 1.3 [place] # (Auto) 0.7 Eos # (Auto) 0.3 Baso # (Auto) 0.0 Abs Immat Gran (auto) 0.09 H Absolute Neuts (auto) 7.8 Absolute Nucleated RBC 0.000 Nucleated RBC % (auto) 0.0 Anion Gap 17 Estim Creat Clear Calc 29.6 Estimated GFR 20 Random Glucose 149 H Calcium 9.2 Total Bilirubin 0.1 Direct Bilirubin < 0.2 AST 20 ALT 11 Alkaline Phosphatase 71 Total Protein 7.2 Albumin 3.4 L Lipase 7 L Urine Color Yellow Urine Appearance Cloudy Urine pH 5.0 Ur Specific [place] 1.015 Urine Protein Negative Urine Glucose (UA) Negative Urine Ketones Negative Urine Blood Negative Urine Nitrite Negative Ur Leukocyte Esterase Moderate (2+) H Urine RBC 0-2 Urine WBC >50 H Ur Squamous Epith Cells 11-20 Urine Bacteria 1+ Hyaline Casts >20 Assessment and Plan (1) Acute on chronic renal insufficiency: Status: Acute Plan 62 F PMH DANIEL/ohs, chronic hypoxic respiratory failure on 2 L home O2, CHF with reduced EF, CKD 3, COPD, morbid obesity, hypertension, mood disorder, diabetes presented with left arm and right ankle pain. found to have positive ua, and fleicia on ckd 3 Acute kidney injury on CKD 3 Gentle hydration, hold diuretics, monitor Left arm and right ankle pain Follow-up x-rays PT eval Asymptomatic Pyuria, bacteriuria Possible acute UTI Will empirically treat with ceftriaxone, follow-up cultures Chronic hypoxic respiratory failure on 2 L home O2 due to COPD Stable DANIEL/ohs, morbid obesity Weight loss recommended CHF with reduced EF Holding diuretics for FELICIA, monitor closely Diabetes Basal bolus insulin Hypertension Amlodipine, hydralazine Mood disorder Risperidone, Ativan DVT prophylaxis-heparin subQ Full code Patient with significant new injury requiring IV fluids and close monitoring due to history of CHF, therefore, expected require at least 2 midnights in patient Time Spent With Patient Time: Total time managing care of this patient today ____ minutes. Quality Stroke Does the patient have a stroke diagnosis?: No VTE Prior VTE?: No VTE Risk Level:: Medical - moderate - high VTE Device Contraindication: Treatment Not Indicated VTE Drug Contraindication: N/A - Med Ordered
--- NOTE | 2023-04-27 04:52 | PC.NURSE ---
this RN attempted IV on patient, 2 unsuccessful attempts, Mandy archibald RN will attempt
--- NOTE | 2023-04-27 05:36 | PC.NURSE ---
2 IVs placed b Phoebe and Lacey CANTU. 22g in Right thumb and 20g in LFA
--- NOTE | 2023-04-27 06:09 | PC.NURSE ---
pt sleeping at this time, respirations even and unlabored, skin pwd, no apparent distress
--- NOTE | 2023-04-27 07:40 | PHA.MEDREC ---
Pharmacy Consult ? Medication Reconciliation completed by RN and reviewed by pharmacy. Per patient, lantus now 50 u BID, and pt is only taking gabapentin twice a day. I asked about the bumex since she has two orders and she states she takes it once a day Lisandro
--- NOTE | 2023-04-27 09:03 | PC.NURSE ---
report given to floor
--- NOTE | 2023-04-27 10:10 | PM.EVENT ---
Event Note Date of Service: 04/27/23 Event Note: 62 F PMH DANIEL/ohs, chronic hypoxic respiratory failure on 2 L home O2, CHF with reduced EF, CKD 3, COPD, morbid obesity, hypertension, mood disorder, diabetes presented with left arm and right ankle pain. found to have positive ua, and felicia on ckd 3 Acute kidney injury on CKD 3 secondary to dehydration from generalized weakness and decreased ambulation Gentle hydration hold diuretics for now Left arm and right ankle pain secondary to fall wrist, elbow and ankle xray negative pain management PT eval pending Asymptomatic Pyuria, bacteriuria Possible acute UTI continue empiric ceftriaxone follow-up cultures Chronic hypoxic respiratory failure on 2 L home O2 due to COPD Stable DANIEL cpap morbid obesity. BMI 49.4 Weight loss recommended HFrEF Holding diuretics for FELICIA, monitor closely Diabetes ss, ada diet Hypertension Amlodipine, hydralazine Mood disorder Risperidone, Ativan DVT prophylaxis-heparin subQ Attending Dr. Kraus Full code Patient with significant new injury requiring IV fluids and close monitoring due to history of CHF, therefore, expected require at least 2 midnights in patient Time Spent With Patient Time: Total time managing care of this patient today ____ minutes.
--- NOTE | 2023-04-27 13:37 | MHC.CLN ---
NUTRITION DIET=DIABETIC 1800 KCAL-APPROPRIATE. STAGE II PRESSURE INJURY TO BUTTOCKS/SACRAL AREA. ADDING ENSURE MAX BID TO PROMOTE SKIN INTEGRITY. PROVIDES 300 KCALS, 60 G PROTEIN. FOLLOW FOR INTAKE AND WOUND HEALING.
--- NOTE | 2023-04-27 17:28 | PC.NURSE ---
Report taken from ED RN. Pt arrived to unit c/o pain and anxiety, RECENTERER informed. Pt stating she is unable to feed and move herself requiring 1:1 feed
[2023-04-28 06:45] LABS: Anion Gap 14 (12-20); Blood Urea Nitrogen 42 mg/dL (9-16); Calcium 8.8 mg/dL (8.4-10.2); Carbon Dioxide 23 mmol/L (22-29); Chloride 111 mmol/L (96-108); Creatinine Clr Calc Pharmacy 63.5; Estimated Glomerular Filt Rate 47; Glucose Random 131 mg/dL (60-115); Potassium 4.3 mmol/L (3.3-5.1); Sodium 144 mmol/L (135-145)
[2023-04-28 07:08] VITALS: BP 139/60; PULSE 98; RESP 22; TEMP 36.6; O2SAT 97
--- NOTE | 2023-04-28 08:40 | MHC.CM.PN ---
Pt lives in [facility] alone, she has [employer] services 5 hours a day, 7 days a week. She does not have transportation home, said she has taken the ambulance home in the past. She does not have HCP on file, she said it would be her daughter. I asked if she wanted to complete the HCP form, and she declined. Pt renetta rec. STR.
[2023-04-28 08:46] VITALS: PULSE 84; RESP 22; O2SAT 98
--- NOTE | 2023-04-28 08:48 | MHC.CM.PN ---
CM will follow and assist with dc plan.
--- NOTE | 2023-04-28 09:45 | HO.PM.IMPN ---
Subjective Subjective Date of Service: 04/28/23 <Johana Francis NP - Last Filed: 04/28/23 15:44> 05/17/23 <Guillermo Marina MD - Last Filed: 05/17/23 10:06> Review of Systems Follow up for FELICIA feeling better but ankle still sore <Johana Francis NP - Last Filed: 04/28/23 15:44> Physical Exam Vital Signs: Vital Signs: Last Vital Signs Temp 97.8 F 04/28/23 07:08 Pulse 84 04/28/23 08:46 Resp 22 H 04/28/23 08:46 BP 139/60 04/28/23 07:08 Pulse Ox 97 04/28/23 07:08 O2 Del Method Nasal Cannula 04/28/23 07:08 O2 Flow Rate 2 04/28/23 07:08 Oxygen Flow Rate 2 04/26/23 23:41 BMI result Body Mass Index 49.4 <Johana Francis NP - Last Filed: 04/28/23 15:44> Appearing in no acute distress lung sounds are clear to auscultation heart regular rate rhythm, clear S1, S2 positive bowel sounds, abdomen is soft, nontender neuro patient is alert x3, no focal deficits <Johana Francis NP - Last Filed: 04/28/23 15:44> Objective Data Active Medications Amlodipine Besylate (Amlodipine Besylate 10 Mg Tablet) 10 mg PO DAILY [facility]; Protocol Last Admin: 04/28/23 07:48 Dose: 10 mg Documented By: BAKARI Aspirin (Aspirin Enteric Coated 81 Mg Tablet.) 81 mg PO DAILY [facility] Last Admin: 04/28/23 07:48 Dose: 81 mg Documented By: BAKARI Atorvastatin Calcium (Atorvastatin Calcium 10 Mg Tablet) 10 mg PO BEDTIME HI Last Admin: 04/27/23 20:52 Dose: 10 mg Documented By: KEELEY Bumetanide (Bumetanide 1 Mg Tablet) 1 mg PO BEDTIME [facility]; Protocol Last Admin: 04/27/23 20:52 Dose: 1 mg Documented By: KEELEY Buspirone HCl (Buspirone Hcl 10 Mg Tablet) 10 mg PO BID [facility] Last Admin: 04/28/23 07:48 Dose: 10 mg Documented By: BAKARI Clonidine HCl (Clonidine Hcl 0.1 Mg Tablet) 0.1 mg PO TID PRN; Protocol PRN Reason: hyperarousal, panic Dextrose (Dextrose 50 % 25 Gm/50 Ml Syringe) 25 gm IVPUSH Q15M PRN; Protocol PRN Reason: per Hypoglycemia Standing Ord. Fluticasone Propionate (Fluticasone Propionate 100 Mcg Blst.W.Dev) 2 puff INHALE RBID [facility] Last Admin: 04/28/23 08:45 Dose: 2 puff Documented By: RAMAKRISHNA Gabapentin (Gabapentin 400 Mg Capsule) 400 mg PO BID@0900,1500 [facility] Last Admin: 04/28/23 07:48 Dose: 400 mg Documented By: BAKARI Glucose (Glucose Gel 15 Gm Gel..Gram.) 15 gm PO Q15M PRN; Protocol PRN Reason: per Hypoglycemia Standing Ord. Heparin Sodium (Porcine) (Heparin Sodium,Porcine 5,000 Unit/Ml Vial) 5,000 unit SUBCUT Q8H [facility] Last Admin: 04/28/23 06:32 Dose: 5,000 unit Documented By: KEELEY Hydralazine HCl (Hydralazine Hcl 25 Mg Tablet) 25 mg PO BID [facility]; Protocol Last Admin: 04/28/23 07:48 Dose: 25 mg Documented By: BAKARI Sodium Chloride (Ns) 1,000 mls @ 75 mls/hr IVCONT .[id number] [facility] Last Admin: 04/28/23 07:49 Dose: 75 mls/hr Documented By: BAKARI Ceftriaxone Sodium 1 gm/ (Sodium Chloride) 50 mls @ 100 mls/hr IV Q24H [facility] Last Infusion: 04/28/23 08:00 Dose: Infused Documented By: BAKARI Insulin Glargine (Insulin Glargine,Hum.Rec.Anlog 100 Unit/Ml 10 Ml Vial) 25 unit SUBCUT BEDTIME [facility] Last Admin: 04/27/23 22:06 Dose: 25 unit Documented By: KEELEY Insulin Human Lispro (Insulin Lispro 100 Unit/Ml 3 Ml Vial) 0 unit SUBCUT QIDACHS [facility]; Protocol Last Admin: 04/28/23 07:25 Dose: Not Given Documented By: BAKARI Non-Admin Reason: No Insulin Coverage Isosorbide Mononitrate (Isosorbide Mononitrate 30 Mg Tab.Er.24h) 30 mg PO DAILY [facility]; Protocol Last Admin: 04/28/23 07:48 Dose: 30 mg Documented By: BAKARI Lorazepam (Lorazepam 0.5 Mg Tablet) 0.5 mg PO BID PRN PRN Reason: anxiety Last Admin: 04/27/23 19:59 Dose: 0.5 mg Documented By: KEELEY Melatonin (Melatonin 3 Mg Tablet) 6 mg PO BEDTIME PRN PRN Reason: Insomnia Last Admin: 04/27/23 22:39 Dose: 6 mg Documented By: KEELEY Oxycodone HCl (Oxycodone Hcl Immed Release 5 Mg Tablet) 5 mg PO Q4H PRN PRN Reason: Pain, Moderate(Pain Scale 4-6) Last Admin: 04/28/23 06:33 Dose: 5 mg Documented By: KEELEY Risperidone (Risperidone 1 Mg Tablet) 1 mg PO BID [facility] Last Admin: 04/28/23 07:48 Dose: 1 mg Documented By: BAKARI Sodium Chloride (0.9 % Sodium Chloride Flush 3 Ml Syringe) 3 ml IVFLUSH QSHIFT [facility] Last Admin: 04/28/23 07:35 Dose: Not Given Documented By: BAKARI Non-Admin Reason: IV Running <Johana Francis NP - Last Filed: 04/28/23 15:44> Labs CBC & Chem 7: 04/28/23 05:35 04/28/23 05:35 <Johana Francis NP - Last Filed: 04/28/23 15:44> Labs: Laboratory Results - last 24 hr 04/27/23 04/27/23 04/27/23 10:48 11:13 15:58 MCV MCH MCHC RDW Plt Count MPV Absolute Nucleated RBC Nucleated RBC % (auto) Anion Gap Estim Creat Clear Calc Estimated GFR POC Glucose 139 H 117 H Random Glucose Fasting Glucose Calcium Total Creatine Kinase 347 H 04/27/23 04/28/23 04/28/23 20:43 05:35 07:12 MCV 87.2 MCH 26.3 L MCHC 30.2 L RDW 15.0 Plt Count 298 MPV 9.2 L Absolute Nucleated RBC 0.000 Nucleated RBC % (auto) 0.0 Anion Gap 14 Estim Creat Clear Calc 63.5 Estimated GFR 47 POC Glucose 202 H 147 H Random Glucose 131 H Fasting Glucose Cancelled Calcium 8.8 Total Creatine Kinase <Johana Francis NP - Last Filed: 04/28/23 15:44> Microbiology Microbiology Results: Microbiology 04/27/23 05:15 Blood Culture - Preliminary Blood - Venous No growth after 24 hours. 04/27/23 05:15 Blood Culture - Preliminary Blood - Venous No growth after 24 hours. <Johana Francis NP - Last Filed: 04/28/23 15:44> Assessment and Plan (1) Hyperkalemia: Status: Resolved <Johana Francis NP - Last Filed: 04/28/23 15:44> (2) Back pain: Status: Resolved <Johana Francis NP - Last Filed: 04/28/23 15:44> Assessment and Plan: 62 F PMH DANIEL/ohs, chronic hypoxic respiratory failure on 2 L home O2, CHF with reduced EF, CKD 3, COPD, morbid obesity, hypertension, mood disorder, diabetes presented with left arm and right ankle pain. found to have positive ua, and felicia on ckd 3 Acute kidney injury on CKD 3 secondary to dehydration from generalized weakness and decreased ambulation s/p Gentle hydration Left arm and right ankle pain secondary to fall wrist, elbow and ankle xray negative pain management PT eval>STR Asymptomatic Pyuria, bacteriuria Possible acute UTI continue empiric ceftriaxone follow-up cultures pending blood cx neg after 24 hours Chronic hypoxic respiratory failure on 2 L home O2 due to COPD Stable DANIEL cpap morbid obesity. BMI 49.4 Weight loss recommended HFrEF Holding diuretics for FELICIA, monitor closely Diabetes ss, ada diet Hypertension Amlodipine, hydralazine Mood disorder Risperidone, Ativan DVT prophylaxis-heparin subQ Attending Dr. Kraus Full code continue hospital stay for safe disposition <Johana Francis NP - Last Filed: 04/28/23 15:44> Time Spent With Patient Time: Total time managing care of this patient today ____ minutes. <Johana Francis NP - Last Filed: 04/28/23 15:44> Quality Stroke Does the patient have a stroke diagnosis?: No <NINFA Power Last Filed: 04/28/23 15:44> VTE Prior VTE?: No <Johana Francis NP - Last Filed: 04/28/23 15:44> VTE Risk Level:: Medical - moderate - high <Johana Francis NP - Last Filed: 04/28/23 15:44> VTE Device Contraindication: Treatment Not Indicated <Johana Francis NP - Last Filed: 04/28/23 15:44> VTE Drug Contraindication: N/A - Med Ordered <Johana Francis NP - Last Filed: 04/28/23 15:44>
[2023-04-28 15:55] VITALS: BP 134/63; PULSE 100; RESP 24; TEMP 36.6; O2SAT 95
[2023-04-28 19:07] VITALS: BP 151/73; PULSE 111; RESP 20; TEMP 36.8; O2SAT 96
[2023-04-29 07:35] VITALS: BP 161/68; PULSE 100; RESP 18; TEMP 36.4; O2SAT 96
[2023-04-29 07:44] VITALS: PULSE 98; RESP 18; O2SAT 94
--- NOTE | 2023-04-29 10:20 | P.DS_ITS ---
DS: Providers Provider Date of Service: 04/29/23 Date of admission: 04/27/23 04:15 Primary care physician: Tavo Huber MD DS: Diagnosis Discharge Diagnosis (1) Hyperkalemia: Status: Resolved (2) Back pain: Status: Resolved DS: Summary Hospital Course Hospital Course: 62 F PMH DANIEL/ohs, chronic hypoxic respiratory failure on 2 L home O2, CHF with reduced EF, CKD 3, COPD, morbid obesity, hypertension, mood disorder, diabetes presented with left arm and right ankle pain. Patient had fall on 04/21/2023 and was evaluated in the ED at [facility] including left humeral imaging which was negative. Also noted to have acute kidney injury at that time which resolved with holding diuretics. Her fall was attributed to polypharmacy and trazodone was discontinued. She was eventually discharged home. Since being home she was unable to ambulate, only able to get to chair with help of [employer] DIRECTOR. She was having severe pain in her left arm and right ankle and called EMS. In ED noted to have positive UA, denies dysuria. Also noted to have acute kidney injury. 62-year-old woman treated for ankle, wrist pain from a fall at home. All imaging studies of wrist, elbow and ankle x-rays were negative for fracture or d islocation. She was noted to have some mild swelling to the ankle area. Her urinalysis showed bacteriuria but urine culture was negative. She did complete 3 days of IV Rocephin. She also had FELICIA likely secondary to dehydration but resolved with IV fluids. She will be discharged home with physical therapy and visiting nurse services. Chronic hypoxic respiratory failure. Continue home oxygen and home medications Obstructive sleep apnea. Continue CPAP Morbid obesity. Discussed importance of weight management as this may be contributing to worsening of other comorbidities Diabetes mellitus type 2. Continue home medications Hypertension. Continue amlodipine and hydralazine Mental health continue risperidone and Ativan Time Spent with Patient Time attestation: Total time managing care of this patient today ____ minutes. Discharge coordination time: Greater than 30 minutes Quality: Safe Use of Opioids Does Pt have an Active Cancer Diagnosis on the Problem List?: No Quality: Stroke Does the patient have a stroke diagnosis?: No Physical Exam Vital Signs: Vital Signs: Last Vital Signs Temp 97.6 F 04/29/23 07:35 Pulse 98 04/29/23 07:44 Resp 18 04/29/23 07:44 BP 161/68 H 04/29/23 07:35 Pulse Ox 96 04/29/23 07:35 O2 Del Method Room Air 04/29/23 07:35 O2 Flow Rate 2 04/28/23 07:08 Oxygen Flow Rate 2 04/26/23 23:41 BMI result Body Mass Index 49.4 Appearing in no acute distress head is normocephalic atraumatic eyes pupils are PERRLA sclera is anicteric mouth throat mucous membranes are intact and moist neck is supple no lymphadenopathy, no JVD noted lung sounds are clear to auscultation heart regular rate rhythm, clear S1, S2 positive bowel sounds, abdomen is soft, nontender neuro patient is alert x3, no focal deficits DS: Data Data Completed and Pending Completed studies during hospitalization [Text1]: Procedures Assistance with Respiratory Ventilation, Less than 24 Consecutive Hours, Continuous Positive Airway Pressure (12/11/20) Excision of Buttock Subcutaneous Tissue and Fascia, Open Approach (04/20/22) Extirpation of Matter from Rectum, Via Natural or Artificial Opening (04/20/22) Labs on day of discharge: Laboratory Results - last 24 hr 04/28/23 04/28/23 04/28/23 11:07 15:57 21:02 POC Glucose 192 H 174 H 139 H 04/29/23 06:59 POC Glucose 115 Preliminary micro results at discharge 04/27/23 05:15 Blood Culture - Preliminary Blood - Venous No growth after 48 hours. 04/27/23 05:15 Blood Culture - Preliminary Blood - Venous No growth after 48 hours. Discharge Plan Discharge Anticipated Discharge Date/Time: 04/29/23 13:31 Patient Disposition: Home Health Service Discharge Diagnosis: FELICIA on CKD Leg pain Referrals: Tavo Huber MD [Primary Care Provider] - 1 Week Discharge Medications: Continued (DME) blood-glucose meter [FreeStyle Lite Meter] Kit See Rx Instructions .Route Qty: 1 0RF Rx Instructions: As directed checks POC 4 X/day insulin lispro [Humalog U-100 Insulin] 100 unit/mL Solution See Protocol subcut QIDACHS Qty: 1 0RF Protocol: Insulin Correction Scale Less than or equal to 110 ---- Give (units): 0 111 to 150 Give (units): 0 151 to 200 Give (units): 2 201 to 250 Give (units): 4 251 to 300 Give (units): 6 301 to 350 Give (units): 8 Greater than 350 Give (units): 10 Call MD if Blood Glucose > : 350 Rx Instructions: sliding scale aspirin 81 mg tablet,delayed release (DR/EC) 81 mg PO DAILY simvastatin 20 mg tablet 20 mg PO BEDTIME fluticasone propionate [Flovent HFA] 110 mcg/actuation HFA aerosol inhaler 2 puff inhalation BID gabapentin 400 mg Capsule 400 mg PO BID@0900,1500 nystatin 100,000 unit/gram Powder 1 appl TOPICAL BID PRN (Reason: Rash) Protocol: Apply to: Apply to: under breasts, around groin Rx Instructions: apply to groin area, and under breasts insulin glargine [Lantus U-100 Insulin] 100 unit/mL solution 50 unit subcut BID (DME) insulin syringe-needle U-100 [BD Insulin Syringe Ultra-Fine] 1 mL 31 gauge x 5/16 syringe MISCELLANEOUS QID isosorbide mononitrate 30 mg tablet extended release 24 hr 1 tab PO DAILY clonidine HCl 0.1 mg Tablet 0.1 mg PO TID PRN (Reason: hyperarousal, anxiety, panic) Qty: 90 0RF Protocol: Hold for SBP< HOLD for SBP < : 90 hydralazine 25 mg Tablet 25 mg PO BID Qty: 60 0RF Protocol: Hold for SBP< HOLD for SBP < : 90 bumetanide 1 mg Tablet 1 mg PO BEDTIME Qty: 30 0RF Protocol: Hold for SBP< HOLD for SBP < : 90 risperidone 1 mg tablet 1 tab PO BID lorazepam [Ativan] 0.5 mg tablet 0.5 mg PO BID PRN (Reason: anxiety) Qty: 6 0RF buspirone 10 mg Tablet 10 mg PO BID amlodipine 10 mg Tablet 10 mg PO DAILY trazodone 50 mg tablet 50 mg PO BEDTIME lidocaine 5 % adhesive patch,medicated 1 patch topical DAILY (DME) FreeStyle Lite Strips Strip See Rx Instructions .ROUTE BID Qty: 10 Rx Instructions: As directed (DME) lancets [FreeStyle Lancets] 28 gauge misc See Rx Instructions .ROUTE QID Qty: 100 Rx Instructions: As directed (DME) insulin syringe-needle U-100 [BD Insulin Syringe Ultra-Fine] 1 mL 31 gauge x 5/16 syringe See Rx Instructions .ROUTE QID Qty: 10 Rx Instructions: As directed Discharge Orders: Discharge Order (Routine); Ordered 04/29/23 Ordered By: Johana Francis Diet: Advance to usual diet Activity on Discharge: As tolerated Stand Alone Forms: Patient Portal Discharge page Care Plan Goals: Physical therapy at home with VNA services Health Concerns: FELICIA on CKD Leg pain Plan of Treatment: Follow-up with primary care provider as needed Take all medications as prescribed Assessment: See discharge summary
--- NOTE | 2023-04-29 11:28 | MHC.CLN ---
NUTRITION DIET=DIABETIC 1800 KCAL-APPROPRIATE. STAGE II PRESSURE INJURY TO BILATERAL BUTTOCKS. RECEIVING ENSURE MAX BID TO PROMOTE SKIN INTEGRITY. PROVIDES 300 KCALS, 60 G PROTEIN. INTAKE APPEARS GOOD, 75-100%. FOLLOW FOR INTAKE AND WOUND HEALING.
--- NOTE | 2023-04-29 13:19 | MHC.CM.PN ---
Pt is medically cleared for DC, STR was recommended, she was accepted at [facility]. Pt refused to go there, and said that her family will take of her. I spoke with her dtr Tess and she said that she would prefer her mom go to rehab to get stronger so that she can stay home when she gets home. CM will address this issue again with Pt to see if she will consider going.
--- NOTE | 2023-04-29 13:45 | MHC.CM.PN ---
Pt refused STR after MD spoke with her about it. She will return home via ambulance and resume her [employer] and [employer] services.
[2023-04-29 16:47] LABS: Glucose, Whole Blood 159 mg/dL (60-115)
== END 2023-04-29 17:36 | disposition home health service (06) | DRG 351 ==
LOC: HO.ED 04-27 03:58 → HO.EDOVER 04-27 04:18 → HO.S3 04-27 08:42
PROVIDERS: Admitting Provider Internal Medicine; Emergency Provider Emergency Medicine; PCP Internal Medicine; Visit Provider Nurse Practitioner Acute Care
DX: M25.571 Pain in right ankle and joints of right foot (principal); J96.11 Chronic respiratory failure with hypoxia; N17.9 Acute kidney failure, unspecified; E66.2 Morbid (severe) obesity with alveolar hypoventilation; I13.0 Hypertensive heart and chronic kidney disease with heart failure and stage 1 through stage 4 chronic kidney disease, or unspecified chronic kidney disease; E11.22 Type 2 diabetes mellitus with diabetic chronic kidney disease; I50.22 Chronic systolic (congestive) heart failure; E86.0 Dehydration; M79.602 Pain in left arm; G89.11 Acute pain due to trauma; Z87.891 Personal history of nicotine dependence; F39 Unspecified mood [affective] disorder; J44.9 Chronic obstructive pulmonary disease, unspecified; Z68.42 Body mass index [BMI] 45.0-49.9, adult; N18.30 Chronic kidney disease, stage 3 unspecified; Z99.81 Dependence on supplemental oxygen; Z79.4 Long term (current) use of insulin; Z79.82 Long term (current) use of aspirin; Z79.899 Other long term (current) drug therapy
CPT/HCPCS: 36415; 71045; 73070; 73100; 73600; 80048; 80076; 81001; 82550; 82947; 83605; 83690; 85025; 85027; 87040; 87086; 94640; 97110; 97162; 99221; 99285; J0696; J1643

== ENCOUNTER → 2023-04-27 04:15 | Outpatient (BNV) | payer OTHER, SELFPAY | PROVIDERS: Admitting Provider Internal Medicine; Emergency Provider Emergency Medicine; PCP Internal Medicine; Visit Provider Internal Medicine | DX: E87.5 Hyperkalemia (principal); M54.9 Dorsalgia, unspecified | CPT/HCPCS: 99223; 99232; 99239; 99499 ==

== ENCOUNTER 2023-05-03 15:17 | Emergency (ER) | payer OTHER, SELFPAY ==
[2023-05-03 15:36] VITALS: BP 122/68; BP 93/45; PULSE 77; PULSE 91; RESP 16; O2SAT 94; BMI 48.6
--- NOTE | 2023-05-03 16:03 | ED.GENADULT ---
HPI - General Adult General Chief complaint: Anxiety Stated complaint: anxiety Time Seen by Provider: 05/03/23 16:00 Source: patient and EMS Mode of arrival: EMS Limitations: no limitations History of Present Illness HPI narrative: Patient is a 62 year old assigned female at with a history of DM and asthma presenting to the emergency department today requesting she be given her shot. Patient states that her overnight BARGE CAPTAIN quit, and now she is not sure who will give her the required PM lantus shot. Patient states that she is unable to give it to herself. Patient states that she does not want to be put in short term rehab or go anywhere but home. Patient states that she would like her shot and to leave. Patient denies any dizziness, lightheadedness, abdominal pain, nausea, vomiting, fever, chills, blurry vision, double vision, loss of vision, chest pain, difficulty breathing, shortness of breath, back pain, night sweats, pain with urination, increased urinary frequency, increased urinary urgency, blood in her urine or stool, syncope or a near syncopal episode, recent trauma or falls, bowel incontinence, bladder incontinence, bowel retention, bladder retention, or any other complaints at this time. Relieving factors: none Exacerbating factors: none Associated symptoms: denies other symptoms Treatments prior to arrival: none Related Data Home Medications Medication Instructions Recorded Confirmed aspirin 81 mg tablet,delayed 81 mg PO DAILY 11/23/20 04/27/23 release fluticasone propionate 110 2 puff inhalation BID 11/23/20 04/27/23 mcg/actuation HFA aerosol inhaler (Flovent HFA) simvastatin 20 mg tablet 20 mg PO BEDTIME 11/23/20 04/27/23 risperidone 1 mg tablet 1 tab PO BID 04/20/22 04/27/23 blood sugar diagnostic (FreeStyle #10 ea 06/25/22 03/26/23 Lite Strips) insulin syringe-needle U-100 1 mL #10 ea 06/25/22 03/26/23 31 gauge x 5/16 (BD Insulin Syringe Ultra-Fine) lancets 28 gauge (FreeStyle #100 ea 06/25/22 03/26/23 Lancets) gabapentin 400 mg capsule 400 mg PO BID@0900,1500 09/08/22 04/27/23 insulin glargine 100 unit/mL 50 unit subcut BID 09/08/22 04/27/23 subcutaneous solution (Lantus U-100 Insulin) nystatin 100,000 unit/gram topical 1 appl topical BID PRN Rash 09/08/22 04/27/23 powder insulin syringe-needle U-100 1 mL 09/27/22 03/26/23 31 gauge x 5/16 (BD Insulin Syringe Ultra-Fine) isosorbide mononitrate 30 mg 1 tab PO DAILY 09/28/22 04/27/23 tablet,extended release 24 hr amlodipine 10 mg tablet 10 mg PO DAILY 12/27/22 04/27/23 buspirone 10 mg tablet 10 mg PO BID 12/27/22 04/27/23 lidocaine 5 % topical patch 1 patch topical DAILY 04/27/23 04/27/23 trazodone 50 mg tablet 50 mg PO BEDTIME 04/27/23 04/27/23 Previous Rx's Medication Instructions Recorded insulin lispro 100 unit/mL See Protocol subcut QIDACHS #1 mL 01/16/21 subcutaneous solution (Humalog U-100 Insulin) clonidine HCl 0.1 mg tablet 0.1 mg PO TID PRN hyperarousal, 04/01/22 anxiety, panic #90 tabs bumetanide 1 mg tablet 1 mg PO BEDTIME #30 tabs 04/08/22 hydralazine 25 mg tablet 25 mg PO BID #60 tabs 04/08/22 blood-glucose meter (FreeStyle #1 ea 09/02/22 Lite Meter kit) lorazepam 0.5 mg tablet (Ativan) 0.5 mg PO BID PRN anxiety #6 tabs 12/16/22 Allergies Allergy/AdvReac Type Severity Reaction Status Date / Time ibuprofen Allergy Intermediate vommiting, Verified 03/25/23 10:42 itching acetaminophen [Tylenol] Allergy Mild Unknown Verified 03/25/23 10:42 morphine AdvReac Intermediate vomiting Verified 03/25/23 10:42 vancomycin AdvReac Intermediate Itching Verified 03/25/23 10:42 codeine AdvReac Anaphylaxis Verified 03/25/23 10:42 Review of Systems Constitutional: Constitutional: Reports no additional constitutional complaints, Denies chills, Denies fever(s) and Denies night sweats Eyes: Eyes: Reports no additional eye complaints, Denies blurry vision, Denies change in vision, Denies diplopia, Denies eye discharge, Denies loss of vision and Denies eye pain ENT: Denies dizziness Cardiovascular: Cardiovascular: Reports no additional cardiovascular complaints, Denies chest pain, Denies lightheadedness, Denies Loss of Consciousness and Denies dyspnea Respiratory: Respiratory: Reports no additional respiratory complaints and Denies dyspnea Gastrointestinal: Gastrointestinal: Reports no additional gastrointestinal complaints, Denies abdominal pain, Denies melena, Denies hematochezia, Denies change in bowel habits and Denies change in stool character Genitourinary: Genitourinary: Denies hematuria, Denies urinary frequency, Denies dysuria, Denies urinary incontinence, Denies urinary hesitancy and Denies urinary urgency Musculoskeletal: Musculoskeletal: Reports no additional musculoskeletal complaints, Denies numbness and Denies tingling Neurologic: Denies dizziness, Denies loss of vision, Denies numbness and Denies tingling Psychiatric: Psychiatric: Reports no additional psychiatric complaints Endocrine: Endocrine: Reports no additional endocrine complaints Hematologic/Lymphatic: Hematologic/Lymphatic: Reports no additional hematologic/lymphatic complaints Allergic/Immunologic: Allergic/Immunologic: Reports no additional allergic/immunologic complaints FOR[facility]LY [facility] Past Medical History Attestation statement: The following information was validated with the patient. Source: old records reviewed and nursing notes reviewed Medical History Uncontrolled type 2 diabetes mellitus with hyperglycemia FELICIA (acute kidney injury) Abdominal pain Constipation Chronic respiratory failure with hypoxia Stercoral colitis Decubitus ulcer Hypoxia CHF exacerbation MDD (major depressive disorder), recurrent episode, moderate Adjustment disorder with mixed anxiety and depressed mood Panic disorder Cellulitis of right lower extremity Stasis dermatitis of both legs DANIEL (obstructive sleep apnea) Asthma Hyperglycemia due to diabetes mellitus COPD (chronic obstructive pulmonary disease) Congestive heart failure Obesity hypoventilation syndrome CKD (chronic kidney disease) stage 3, GFR 30-59 ml/min NICM (nonischemic cardiomyopathy) Acute on chronic combined systolic and diastolic CHF (congestive heart failure) Morbid obesity Diabetic neuropathy, painful Chronic pain High cholesterol Depression Hypertension Diabetes Surgical History Hx of cholecystectomy Family History Family History Mother HTN (hypertension) Diabetes CAD (coronary artery disease) Father HTN (hypertension) Diabetes CAD (coronary artery disease) Maternal Grandmother CAD (coronary artery disease) Social History Social History Household Members: None Household Members Other:: GRANDSON Housing: Apartment Housing Other:: with line service person Do you presently have visiting nurse or other home services: Yes Unable to assess alcohol history related to: Unable to respond and Refusing to respond Alcohol intake: never Patient Tobacco Use Status: Former Tobacco user Quit Date: 1999 Tobacco use type: Cigarette Years Smoked: 38 Smoked in Last 30 Days: No Second Hand Smoke Exposure: No Use of substances other than those prescribed or required for medical reasons: Refusing to respond Substance Use Type: Marijuana Advance Directives: Yes Advance Directives on File: Yes Advance Directives Date on File: 12/19/20 service: No Current occupational status: disabled Physical Exam ED Vital Signs: Vital Signs - 24 hr 05/03/23 15:36 Pulse Rate 77 Respiratory Rate 16 Blood Pressure 93/45 L Pulse Oximetry 94 Oxygen Delivery Method Room Air BMI result Body Mass Index 48.6 Const General: cooperative, no acute distress, alert and awake Nutritional Appearance: well nourished Orientation/consciousness: patient oriented x3 Limitations: no limitations HENMT Head: Yes normal to inspection and Yes atraumatic Ears: hearing grossly normal bilaterally and external ears normal General nose exam: Normal external nose present, no nasal discharge noted and no epistaxis Face and sinus: Yes normal facial exam, No abrasion and No laceration Mouth: Normal oral and palatal mucosa present, no drooling and no muffled voice Eyes General: appearance normal, both eyes and all related structures Periorbital: periorbital findings normal Eyelids: Yes eyelids normal Conjunctivae: conjunctivae normal Pupils: Equal, round and reactive pupils present EOM: EOMs intact bilaterally Neck Neck: Yes normal visual inspection, Yes full ROM and Yes no lymphadenopathy Chest Chest palpation & inspection: normal inspection of the chest Resp Effort & Inspection: normal respiratory effort and able to speak in complete sentences GI Inspection: Yes normal to inspection Neuro General: patient oriented x3 and moves all extremities Cranial nerves: Yes Equal, round and reactive pupils present Cognition (Neuro): normal cognition Motor exam (neuro): 5/5 motor strength present throughout Sensory Exam: Normal double simultaneous stimulation for sensation Coordination: [id number] test normal Extrem General: Yes normal to inspection, Yes full ROM and Yes capillary refill normal Psych Appearance: grossly normal Mental Status: mental status grossly normal Affect: normal affect Attitude: cooperative Thought process: Normal thought process present Thought content: Normal thought content present Insight: Good insight present (Psych) Medications Administered Discontinued Medications Generic Name Dose Route Start Last Admin Trade Name Pankaj PRN Reason Stop Dose Admin Insulin Glargine 50 unit 05/03/23 16:09 05/03/23 17:46 Insulin Glargine,Hum.Rec.Anlog 100 Unit/Ml 10 Ml Vial SUBCUT 05/03/23 16:10 50 unit ONCE ONE Administration Medical Decision Making Medical Decision Making MDM Narrative: Patient is a 62 year old assigned female at with a history of asthma and DM presenting to the emergency department today requesting her lantus dose. Patient's physical exam was unremarkable. I explained my physical exam findings to the patient. I answered all questions asked by the patient. Patient received her dose of lantus. I explained to the patient that it is inappropriate to come to the emergency department for someone to administer her medications and that she needs to arrange a new BARGE CAPTAIN or family member to do so for her. Patient again refused any assistance in that matter. I stressed the importance of the patient taking her medication as prescribed. I stressed the importance of the patient following up with her primary care provider. I stressed the importance of the patient returning to the emergency department immediately if she were to develop any dizziness, shortness of breath, difficulty breathing, chest pain, blurry vision, loss of vision, nausea, vomiting, abdominal pain, fever, chills, back pain, or any other complaints. Patient verbalized agreement and understanding with this treatment plan and discharge. Differential Diagnosis Differential Diagnoses: The differential diagnosis associated with the presentation includes Medical examination Independent Historian Clinical information obtained from an independent historian. History obtained from or confirmed by: EMS (EMS provided additional history and confirmed the history provided by the patient.) Discharge Plan Discharge Clinical Impression: Adult general medical exam Patient Disposition: Home, Self-Care Instructions: Normal Exam (ED) Additional Instructions: Please obtain a new overnight BARGE CAPTAIN to administer your lantus shot. Follow up with your primary care provider. Return to the emergency department immediately if you develop any dizziness, shortness of breath, difficulty breathing, chest pain, blurry vision, loss of vision, nausea, vomiting, abdominal pain, fever, chills, back pain, or any other complaints. Prescriptions: No Action (DME) blood-glucose meter [FreeStyle Lite Meter] Kit See Rx Instructions .Route Qty: 1 0RF Rx Instructions: As directed checks POC 4 X/day insulin lispro [Humalog U-100 Insulin] 100 unit/mL Solution See Protocol subcut QIDACHS Qty: 1 0RF Protocol: Insulin Correction Scale Less than or equal to 110 ---- Give (units): 0 111 to 150 Give (units): 0 151 to 200 Give (units): 2 201 to 250 Give (units): 4 251 to 300 Give (units): 6 301 to 350 Give (units): 8 Greater than 350 Give (units): 10 Call MD if Blood Glucose > : 350 Rx Instructions: sliding scale aspirin 81 mg tablet,delayed release (DR/EC) 81 mg PO DAILY simvastatin 20 mg tablet 20 mg PO BEDTIME fluticasone propionate [Flovent HFA] 110 mcg/actuation HFA aerosol inhaler 2 puff inhalation BID gabapentin 400 mg Capsule 400 mg PO BID@0900,1500 nystatin 100,000 unit/gram Powder 1 appl TOPICAL BID PRN (Reason: Rash) Protocol: Apply to: Apply to: under breasts, around groin Rx Instructions: apply to groin area, and under breasts insulin glargine [Lantus U-100 Insulin] 100 unit/mL solution 50 unit subcut BID (DME) insulin syringe-needle U-100 [BD Insulin Syringe Ultra-Fine] 1 mL 31 gauge x 5/16 syringe MISCELLANEOUS QID isosorbide mononitrate 30 mg tablet extended release 24 hr 1 tab PO DAILY clonidine HCl 0.1 mg Tablet 0.1 mg PO TID PRN (Reason: hyperarousal, anxiety, panic) Qty: 90 0RF Protocol: Hold for SBP< HOLD for SBP < : 90 hydralazine 25 mg Tablet 25 mg PO BID Qty: 60 0RF Protocol: Hold for SBP< HOLD for SBP < : 90 bumetanide 1 mg Tablet 1 mg PO BEDTIME Qty: 30 0RF Protocol: Hold for SBP< HOLD for SBP < : 90 risperidone 1 mg tablet 1 tab PO BID lorazepam [Ativan] 0.5 mg tablet 0.5 mg PO BID PRN (Reason: anxiety) Qty: 6 0RF buspirone 10 mg Tablet 10 mg PO BID amlodipine 10 mg Tablet 10 mg PO DAILY trazodone 50 mg tablet 50 mg PO BEDTIME lidocaine 5 % adhesive patch,medicated 1 patch topical DAILY (DME) FreeStyle Lite Strips Strip See Rx Instructions .ROUTE BID Qty: 10 Rx Instructions: As directed (DME) lancets [FreeStyle Lancets] 28 gauge misc See Rx Instructions .ROUTE QID Qty: 100 Rx Instructions: As directed (DME) insulin syringe-needle U-100 [BD Insulin Syringe Ultra-Fine] 1 mL 31 gauge x 5/16 syringe See Rx Instructions .ROUTE QID Qty: 10 Rx Instructions: As directed Referrals: Tavo Huber MD [Primary Care Provider] - Print Language: Bangladeshi
[2023-05-03] MEDS: Insulin Glargine,Hum.rec.anlog 100 UNIT/ML 10 ML VIAL 50 UNIT SUBCUT (17:46)
== END 2023-05-03 18:47 | disposition home or self-care (01) ==
PROVIDERS: Emergency Provider Emergency Medicine; PCP Internal Medicine
DX: F41.9 Anxiety disorder, unspecified (principal); J45.909 Unspecified asthma, uncomplicated; E11.9 Type 2 diabetes mellitus without complications; Z87.891 Personal history of nicotine dependence; Z79.899 Other long term (current) drug therapy; Z79.4 Long term (current) use of insulin
CPT/HCPCS: 99284

== ENCOUNTER 2023-05-11 11:35 | Emergency (ER) | payer OTHER, SELFPAY ==
[2023-05-11 12:00] VITALS: BP 129/58; BP 148/76; PULSE 116; PULSE 83; RESP 17; TEMP 37.4; O2SAT 95; O2SAT 96; BMI 48.6
--- NOTE | 2023-05-11 12:35 | ED.ANXIETY ---
HPI - Anxiety General Chief Complaint: Anxiety Stated Complaint: PANIC ATTACK PER EMS Time Seen by Provider: 05/11/23 11:45 Source: patient and EMS Mode of arrival: EMS Limitations: no limitations History of Present Illness HPI narrative: patient presents screaming that she is anxious and needs a pill. This is a common presentation for this patient. Patient is not suicidal or homicidal MD complaint: anxiety Onset (ago): hour(s) Severity: moderate Quality: constant Place: home Related Data Home Medications Medication Instructions Recorded Confirmed aspirin 81 mg tablet,delayed 81 mg PO DAILY 11/23/20 04/27/23 release fluticasone propionate 110 2 puff inhalation BID 11/23/20 04/27/23 mcg/actuation HFA aerosol inhaler (Flovent HFA) simvastatin 20 mg tablet 20 mg PO BEDTIME 11/23/20 04/27/23 risperidone 1 mg tablet 1 tab PO BID 04/20/22 04/27/23 blood sugar diagnostic (FreeStyle #10 ea 06/25/22 03/26/23 Lite Strips) insulin syringe-needle U-100 1 mL #10 ea 06/25/22 03/26/23 31 gauge x 5/16 (BD Insulin Syringe Ultra-Fine) lancets 28 gauge (FreeStyle #100 ea 06/25/22 03/26/23 Lancets) gabapentin 400 mg capsule 400 mg PO BID@0900,1500 09/08/22 04/27/23 insulin glargine 100 unit/mL 50 unit subcut BID 09/08/22 04/27/23 subcutaneous solution (Lantus U-100 Insulin) nystatin 100,000 unit/gram topical 1 appl topical BID PRN Rash 09/08/22 04/27/23 powder insulin syringe-needle U-100 1 mL 09/27/22 03/26/23 31 gauge x 5/16 (BD Insulin Syringe Ultra-Fine) isosorbide mononitrate 30 mg 1 tab PO DAILY 09/28/22 04/27/23 tablet,extended release 24 hr amlodipine 10 mg tablet 10 mg PO DAILY 12/27/22 04/27/23 buspirone 10 mg tablet 10 mg PO BID 12/27/22 04/27/23 lidocaine 5 % topical patch 1 patch topical DAILY 04/27/23 04/27/23 trazodone 50 mg tablet 50 mg PO BEDTIME 04/27/23 04/27/23 Previous Rx's Medication Instructions Recorded insulin lispro 100 unit/mL See Protocol subcut QIDACHS #1 mL 01/16/21 subcutaneous solution (Humalog U-100 Insulin) clonidine HCl 0.1 mg tablet 0.1 mg PO TID PRN hyperarousal, 04/01/22 anxiety, panic #90 tabs bumetanide 1 mg tablet 1 mg PO BEDTIME #30 tabs 04/08/22 hydralazine 25 mg tablet 25 mg PO BID #60 tabs 04/08/22 blood-glucose meter (FreeStyle #1 ea 09/02/22 Lite Meter kit) lorazepam 0.5 mg tablet (Ativan) 0.5 mg PO BID PRN anxiety #6 tabs 12/16/22 Allergies Allergy/AdvReac Type Severity Reaction Status Date / Time ibuprofen Allergy Intermediate vommiting, Verified 03/25/23 10:42 itching acetaminophen [Tylenol] Allergy Mild Unknown Verified 03/25/23 10:42 morphine AdvReac Intermediate vomiting Verified 03/25/23 10:42 vancomycin AdvReac Intermediate Itching Verified 03/25/23 10:42 codeine AdvReac Anaphylaxis Verified 03/25/23 10:42 Review of Systems Review of Systems: Yes all other systems are reviewed and are negative Neurologic: Denies Sensory deficit (Neuro) PMFSH Past Medical History Medical History Uncontrolled type 2 diabetes mellitus with hyperglycemia FELICIA (acute kidney injury) Abdominal pain Constipation Chronic respiratory failure with hypoxia Stercoral colitis Decubitus ulcer Hypoxia CHF exacerbation MDD (major depressive disorder), recurrent episode, moderate Adjustment disorder with mixed anxiety and depressed mood Panic disorder Cellulitis of right lower extremity Stasis dermatitis of both legs DANIEL (obstructive sleep apnea) Asthma Hyperglycemia due to diabetes mellitus COPD (chronic obstructive pulmonary disease) Congestive heart failure Obesity hypoventilation syndrome CKD (chronic kidney disease) stage 3, GFR 30-59 ml/min NICM (nonischemic cardiomyopathy) Acute on chronic combined systolic and diastolic CHF (congestive heart failure) Morbid obesity Diabetic neuropathy, painful Chronic pain High cholesterol Depression Hypertension Diabetes Surgical History Hx of cholecystectomy Family History Family History Mother HTN (hypertension) Diabetes CAD (coronary artery disease) Father HTN (hypertension) Diabetes CAD (coronary artery disease) Maternal Grandmother CAD (coronary artery disease) Social History Social History Household Members: None Household Members Other:: GRANDSON Housing: Apartment 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 Do you presently have visiting nurse or other home services: Yes Unable to assess alcohol history related to: Unable to respond and Refusing to respond Alcohol intake: never Patient Tobacco Use Status: Former Tobacco user Quit Date: 1999 Tobacco use type: Cigarette Years Smoked: 38 Smoked in Last 30 Days: No Second Hand Smoke Exposure: No Use of substances other than those prescribed or required for medical reasons: Yes Substance Use Type: Marijuana Advance Directives: Yes Advance Directives on File: Yes Advance Directives Date on File: 12/19/20 service: No Current occupational status: disabled Physical Exam Vital Signs: Vital Signs: Last Vital Signs Temp 99.3 F 05/11/23 12:00 Pulse 83 05/11/23 12:00 Resp 17 05/11/23 12:00 BP 129/58 L 05/11/23 12:00 Pulse Ox 96 05/11/23 12:00 O2 Del Method Room Air 05/11/23 12:00 BMI result Body Mass Index 48.6 Const: Other: Morbidly obese female, looking much older than stated age, screaming Orientation/consciousness: oriented to person Limitations: no limitations HEENT: Head: Yes normal to inspection Ears: external ears normal General nose exam: Normal external nose present Mouth: Normal oral and palatal mucosa present and oropharynx normal Throat: Yes posterior oropharynx normal Eyes: General: appearance normal, both eyes and all related structures Neck: Other: supple Neck: Yes normal visual inspection Chest: Chest palpation & inspection: normal inspection of the chest Resp: Auscultation: clear to auscultation bilaterally Cardio: Jugular venous distension: no JVD Rate: regular rate Rhythm: regular rhythm Heart sounds: S1 normal heart sound present and S2 normal heart sound present GI: Inspection: Yes normal to inspection Palpation (GI): Soft to palpation, nontender and No hepatosplenomegaly present Auscultation: normal bowel sounds : General: Yes no CVA tenderness Back/Spine/Pelvis: Back: no CVA tenderness Skin: General skin exam: no rashes or lesions noted Neuro: General: oriented to person Cranial nerves: Yes CN's II-XII intact bilaterally Motor exam (neuro): 5/5 motor strength present throughout Sensory Exam: No Sensory deficit (Neuro) Extrem: General: Yes normal to inspection Psych: Other: screaming and crying Course Reevaluation(s) Reevaluation #1: patient given an ativan and is now calm will dc home Time: 13:17 Medications Administered Discontinued Medications Generic Name Dose Route Start Last Admin Trade Name Pankaj PRN Reason Stop Dose Admin Lorazepam 1 mg 05/11/23 12:36 05/11/23 12:48 Lorazepam 1 Mg Tablet PO 05/11/23 12:37 1 mg ONCE ONE Administration Medical Decision Making Differential Diagnosis Differential Diagnoses: The differential diagnosis associated with the presentation includes (anxiety, panic attack) Admission/Observation Consideration of admission/observation: Escalation of care including admission/observation considered (upon arrival patient was considered for admission) Independent Historian Clinical information obtained from an independent historian. History obtained from or confirmed by: EMS External Record Review External record reviewed: Inpatient record and Outpatient record Tests considered The following testing was considered but not selected: blood work, ekg were all considered Chronic Conditions Patient?s care impacted by: Other (anxiety and panic attacks) Social Determinants Patient?s care significantly limited by Social Determinants of Health including: Other Social Determinant of Health (psychiatric illness) Discharge Plan Discharge Clinical Impression: Acute anxiety, Panic disorder Patient Disposition: Home, Self-Care Instructions: Panic Disorder (ED), Anxiety (ED) Prescriptions: No Action (DME) blood-glucose meter [FreeStyle Lite Meter] Kit See Rx Instructions .Route Qty: 1 0RF Rx Instructions: As directed checks POC 4 X/day insulin lispro [Humalog U-100 Insulin] 100 unit/mL Solution See Protocol subcut QIDACHS Qty: 1 0RF Protocol: Insulin Correction Scale Less than or equal to 110 ---- Give (units): 0 111 to 150 Give (units): 0 151 to 200 Give (units): 2 201 to 250 Give (units): 4 251 to 300 Give (units): 6 301 to 350 Give (units): 8 Greater than 350 Give (units): 10 Call MD if Blood Glucose > : 350 Rx Instructions: sliding scale aspirin 81 mg tablet,delayed release (DR/EC) 81 mg PO DAILY simvastatin 20 mg tablet 20 mg PO BEDTIME fluticasone propionate [Flovent HFA] 110 mcg/actuation HFA aerosol inhaler 2 puff inhalation BID gabapentin 400 mg Capsule 400 mg PO BID@0900,1500 nystatin 100,000 unit/gram Powder 1 appl TOPICAL BID PRN (Reason: Rash) Protocol: Apply to: Apply to: under breasts, around groin Rx Instructions: apply to groin area, and under breasts insulin glargine [Lantus U-100 Insulin] 100 unit/mL solution 50 unit subcut BID (DME) insulin syringe-needle U-100 [BD Insulin Syringe Ultra-Fine] 1 mL 31 gauge x 5/16 syringe MISCELLANEOUS QID isosorbide mononitrate 30 mg tablet extended release 24 hr 1 tab PO DAILY clonidine HCl 0.1 mg Tablet 0.1 mg PO TID PRN (Reason: hyperarousal, anxiety, panic) Qty: 90 0RF Protocol: Hold for SBP< HOLD for SBP < : 90 hydralazine 25 mg Tablet 25 mg PO BID Qty: 60 0RF Protocol: Hold for SBP< HOLD for SBP < : 90 bumetanide 1 mg Tablet 1 mg PO BEDTIME Qty: 30 0RF Protocol: Hold for SBP< HOLD for SBP < : 90 risperidone 1 mg tablet 1 tab PO BID lorazepam [Ativan] 0.5 mg tablet 0.5 mg PO BID PRN (Reason: anxiety) Qty: 6 0RF buspirone 10 mg Tablet 10 mg PO BID amlodipine 10 mg Tablet 10 mg PO DAILY trazodone 50 mg tablet 50 mg PO BEDTIME lidocaine 5 % adhesive patch,medicated 1 patch topical DAILY (DME) FreeStyle Lite Strips Strip See Rx Instructions .ROUTE BID Qty: 10 Rx Instructions: As directed (DME) lancets [FreeStyle Lancets] 28 gauge misc See Rx Instructions .ROUTE QID Qty: 100 Rx Instructions: As directed (DME) insulin syringe-needle U-100 [BD Insulin Syringe Ultra-Fine] 1 mL 31 gauge x 5/16 syringe See Rx Instructions .ROUTE QID Qty: 10 Rx Instructions: As directed Referrals: Tavo Huber MD [Primary Care Provider] - 5 days
[2023-05-11] MEDS: LORazepam 1 MG TABLET PO (12:48)
--- NOTE | 2023-05-11 13:44 | PC.NURSE ---
Dr. Figueroa notified patient is ready to go home.
== END 2023-05-11 15:47 | disposition home or self-care (01) ==
PROVIDERS: Emergency Provider Emergency Medicine; PCP Internal Medicine
DX: F41.0 Panic disorder [episodic paroxysmal anxiety] (principal); F41.1 Generalized anxiety disorder; F43.0 Acute stress reaction; E11.9 Type 2 diabetes mellitus without complications; Z79.899 Other long term (current) drug therapy; Z79.4 Long term (current) use of insulin; Z87.891 Personal history of nicotine dependence
CPT/HCPCS: 99283; 99284

== ENCOUNTER 2023-05-12 10:16 | Outpatient (AMB) | payer OTHER, SELFPAY ==
[2023-05-12 10:19] VITALS: BMI 48.6
--- NOTE | 2023-05-12 10:19 | MHC.OFFVIS ---
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 Left is worse than her right. Patient reports her symptoms have worsen and is having constant numbness in fingers. She use to wear hand brace to sleep but she misplaced them and hasn't been wearing it. EMG done. Patient would like to discuss surgical intervention. Patient states her A1C is about a 7.7. 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 She says she has numbness in all of the fingers of both hands, and that the numbness is constant. She feels her left hand is more bothersome than her right. She used to wear wrist braces but she misplaced them recently and has not been able to wear anything. When seen in clinic she is rocking back and forth in her chair. At 1st she says because her legs hurt because she has had to be up and about, but then later she said that is because she gets nervous and has panic attacks. She says she does not work, and that she is not able to do anything around the house. She is a Diabetic, and is unsure but she thinks her most recent HgA1c was 7.7% She says that she has a heart condition and sees a inserter operator. She also reports that she has COPD [facility] Medical History Uncontrolled type 2 diabetes mellitus with hyperglycemia FELICIA (acute kidney injury) Abdominal pain Constipation Chronic respiratory failure with hypoxia Stercoral colitis Decubitus ulcer Hypoxia CHF exacerbation MDD (major depressive disorder), recurrent episode, moderate Adjustment disorder with mixed anxiety and depressed mood Panic disorder Cellulitis of right lower extremity Stasis dermatitis of both legs DANIEL (obstructive sleep apnea) Asthma Hyperglycemia due to diabetes mellitus COPD (chronic obstructive pulmonary disease) Congestive heart failure Obesity hypoventilation syndrome CKD (chronic kidney disease) stage 3, GFR 30-59 ml/min NICM (nonischemic cardiomyopathy) Acute on chronic combined systolic and diastolic CHF (congestive heart failure) Morbid obesity Diabetic neuropathy, painful Chronic pain High cholesterol Depression Hypertension Diabetes Surgical History Hx of cholecystectomy Family History Mother HTN (hypertension) Diabetes CAD (coronary artery disease) Father HTN (hypertension) Diabetes CAD (coronary artery disease) Maternal Grandmother CAD (coronary artery disease) Social History Household Members: None Household Members Other:: GRANDSON Housing: Apartment 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 Do you presently have visiting nurse or other home services: Yes Unable to assess alcohol history related to: Unable to respond and Refusing to respond Alcohol intake: never Patient Tobacco Use Status: Former Tobacco user Quit Date: 1999 Tobacco use type: Cigarette Years Smoked: 38 Second Hand Smoke Exposure: No Substance Use Type: Marijuana Advance Directives Date on File: 12/19/20 service: No Current occupational status: disabled Review of Systems Const All systems reviewed & are unremarkable except as noted in HPI and below Physical Exam Vital Signs: BMI result Body Mass Index 48.6 Const General: cooperative, healthy appearing and no acute distress Orientation/consciousness: patient oriented x3 HEENT Head: Yes normocephalic and Yes atraumatic Eyes EOM: EOMs intact bilaterally Resp Effort & Inspection: normal respiratory effort and able to speak in complete sentences Cardio Jugular venous distension: no JVD Skin General skin exam: turgor normal Rashes: no rashes Neuro General: patient oriented x3 Extrem Other: Evaluation of Bilateral Upper Extremity: The patient is alert, oriented. She is rocking back and forth in her seat throughout her visit today. At 1st she said it was because of leg pain from walking today, but then said it was because she gets nervous. She ambulates with a walker which she has with her today. Neuro: Dense numbness in all of the digits of both hands. She said she was unable to do a finger cross bilaterally, but at least on the left she was able to abduct and adduct her fingers. Vascular: Cap refill brisk ROM: She appears to have significant stiffness in both hands, which appear to be related to disuse. She can bring them into full extension. When asked her to make a fist she can only bring her finger tips initially to about 6 or 7 cm from her palm. With encouragement and some exercises I was able to get her to bring her left fingertips to perhaps 3 cm from her palm before she complained of pain. Skin: No lacerations or abrasions. General: No Ecchymosis. No Erythema or evidence of infection. Nerve Conduction Study: Severe end stage carpal tunnel syndrome on the right Moderately severe carpal tunnel syndrome on the left Diffuse sensory-motor peripheral neuropathy EMG of the right C5-T1 innervated muscles consistent with denervation of th APB muscles consistent with severe median neuropathy. Denervation in the ulnar innervated muscles consistent with severe ulnar neuropathy on the right Dr. Sanchez 02/18/23 Radiographs: 3 views of the right wrist from 04/27/23 were reviewed by me today in clinic. They show no fractures or dislocations. Significant arterial vascular calcifications extending from the wrist distally into the digits. I do not see significant arthritic changes at this time. Psych Appearance: grossly normal Affect: normal affect Attitude: cooperative Assessment & Plan Assessment & Plan (1) Carpal tunnel syndrome of right wrist: Code(s): G56.01 - Carpal tunnel syndrome, right upper limb (2) Cubital tunnel syndrome on right: Code(s): G56.21 - Lesion of ulnar nerve, right upper limb (3) Carpal tunnel syndrome of left wrist: Code(s): G56.02 - Carpal tunnel syndrome, left upper limb (4) Diabetes: Code(s): E11.9 - Type 2 diabetes mellitus without complications (5) Diabetic neuropathy, painful: Code(s): E11.40 - Type 2 diabetes mellitus with diabetic neuropathy, unspecified Plan Assessment & Plan: 1. Right Carpal tunnel syndrome, severe end-stage With dense numbness 2. Left Carpal tunnel syndrome, moderate-severe With dense numbness 3. Right Cubital tunnel syndrome, severe With dense numbness 4. Left cubital tunnel syndrome I did not see any findings on the nerve conduction study, however she also has dense numbness in the small and ring fingers of the left hand. I educated her about these conditions I discussed operative and non-operative treatment options The patient would like to proceed with surgery for the left hand which bothers her the most. The risks and benefits of operative treatment were discussed with the patient and the patient wishes to proceed with surgery. These risks include, but are not limited to risk of damage to blood vessels, nerves, tendons, infection, recurrence, incomplete relief of preoperative symptoms, persistent pain, possible need for further surgery and the risks associated with regional blocks and anesthesia. The plan is to take the patient to the operating room sometime in the next few weeks for the following procedures: 1. Left carpal tunnel release 2. Left cubital tunnel release versus transposition All of the preoperative paperwork including the consent was filled out today. All the patient's questions were answered. The patient understands that they will be contacted by our home care scheduler soon to schedule this procedure She is a Diabetic, she unsure but says her most recent HgA1c was 7.7% She has a hx of CKD, CHF, asthma, panic disorder, and depression She will need preoperative clearance from her inserter operator. We will need to check a new hemoglobin A1c She also says that she has COPD. Coding Level of Care Code New Pt Level 4 (62500) Diagnoses Carpal tunnel syndrome of right wrist G56.01 Cubital tunnel syndrome on right G56.21 Carpal tunnel syndrome of left wrist G56.02 Diabetes E11.9 Diabetic neuropathy, painful E11.40
== END 2023-05-12 10:50 | disposition home or self-care (01) ==
PROVIDERS: PCP Internal Medicine; Visit Provider Orthopaedic Surgery
DX: G56.01 Carpal tunnel syndrome, right upper limb (principal); G56.21 Lesion of ulnar nerve, right upper limb; G56.02 Carpal tunnel syndrome, left upper limb; E11.40 Type 2 diabetes mellitus with diabetic neuropathy, unspecified
CPT/HCPCS: 99204

== ENCOUNTER → 2023-05-12 10:16 | Outpatient (BNVA) | payer OTHER, SELFPAY | PROVIDERS: PCP Internal Medicine; Visit Provider Orthopaedic Surgery | DX: G56.03 Carpal tunnel syndrome, bilateral upper limbs (principal); G56.21 Lesion of ulnar nerve, right upper limb; E11.65 Type 2 diabetes mellitus with hyperglycemia; E11.40 Type 2 diabetes mellitus with diabetic neuropathy, unspecified; E11.22 Type 2 diabetes mellitus with diabetic chronic kidney disease; I12.9 Hypertensive chronic kidney disease with stage 1 through stage 4 chronic kidney disease, or unspecified chronic kidney disease; N18.30 Chronic kidney disease, stage 3 unspecified; N17.9 Acute kidney failure, unspecified; Z87.891 Personal history of nicotine dependence | CPT/HCPCS: 99202 ==

== ENCOUNTER 2023-05-14 18:22 | Emergency (ER) | payer OTHER, SELFPAY ==
[2023-05-14 18:31] VITALS: BP 142/88; PULSE 78; O2SAT 98
[2023-05-14 18:45] VITALS: BP 120/35; PULSE 84; RESP 18; TEMP 36.9; O2SAT 96; BMI 48.5
--- NOTE | 2023-05-14 18:56 | ED.ANXIETY ---
HPI - Anxiety General Chief Complaint: Anxiety Stated Complaint: ANXIETY Time Seen by Provider: 05/14/23 18:47 Source: patient, EMS and RN notes reviewed Mode of arrival: EMS Limitations: no limitations History of Present Illness HPI narrative: Patient is a 63-year-old female with history of anxiety, asthma, diabetes mellitus, CHF presenting to the emergency department with complaint of waking from a nap with anxiety. Patient states that she took her prescribed Ativan prior to EMS picking her up at home. She reports that her anxiety has resolved since that time and feels ready to be discharged home. She denies any chest pain, palpitations, shortness of breath, dizziness, lightheadedness or any other physical complaints. Denies any suicidal or homicidal ideations, denies any auditory or visual hallucinations. Patient with frequent ED visits for same complaint. MD complaint: anxiety Onset (ago): hour(s) Severity: similar to previous episodes Quality: improving Place: home History of similar episodes: Yes Provoking factors: none known Relieving factors: medication Associated symptoms: denies other symptoms Related Data Home Medications Medication Instructions Recorded Confirmed aspirin 81 mg tablet,delayed 81 mg PO DAILY 11/23/20 04/27/23 release fluticasone propionate 110 2 puff inhalation BID 11/23/20 04/27/23 mcg/actuation HFA aerosol inhaler (Flovent HFA) simvastatin 20 mg tablet 20 mg PO BEDTIME 11/23/20 04/27/23 risperidone 1 mg tablet 1 tab PO BID 04/20/22 04/27/23 blood sugar diagnostic (FreeStyle #10 ea 06/25/22 03/26/23 Lite Strips) insulin syringe-needle U-100 1 mL #10 ea 06/25/22 03/26/23 31 gauge x 5/16 (BD Insulin Syringe Ultra-Fine) lancets 28 gauge (FreeStyle #100 ea 06/25/22 03/26/23 Lancets) gabapentin 400 mg capsule 400 mg PO BID@0900,1500 09/08/22 04/27/23 insulin glargine 100 unit/mL 50 unit subcut BID 09/08/22 04/27/23 subcutaneous solution (Lantus U-100 Insulin) nystatin 100,000 unit/gram topical 1 appl topical BID PRN Rash 09/08/22 04/27/23 powder insulin syringe-needle U-100 1 mL 09/27/22 03/26/23 31 gauge x 5/16 (BD Insulin Syringe Ultra-Fine) isosorbide mononitrate 30 mg 1 tab PO DAILY 09/28/22 04/27/23 tablet,extended release 24 hr amlodipine 10 mg tablet 10 mg PO DAILY 12/27/22 04/27/23 buspirone 10 mg tablet 10 mg PO BID 12/27/22 04/27/23 lidocaine 5 % topical patch 1 patch topical DAILY 04/27/23 04/27/23 trazodone 50 mg tablet 50 mg PO BEDTIME 04/27/23 04/27/23 Previous Rx's Medication Instructions Recorded insulin lispro 100 unit/mL See Protocol subcut QIDACHS #1 mL 01/16/21 subcutaneous solution (Humalog U-100 Insulin) clonidine HCl 0.1 mg tablet 0.1 mg PO TID PRN hyperarousal, 04/01/22 anxiety, panic #90 tabs bumetanide 1 mg tablet 1 mg PO BEDTIME #30 tabs 04/08/22 hydralazine 25 mg tablet 25 mg PO BID #60 tabs 04/08/22 blood-glucose meter (FreeStyle #1 ea 09/02/22 Lite Meter kit) lorazepam 0.5 mg tablet (Ativan) 0.5 mg PO BID PRN anxiety #6 tabs 12/16/22 Allergies Allergy/AdvReac Type Severity Reaction Status Date / Time ibuprofen Allergy Intermediate vommiting, Verified 05/12/23 10:30 itching acetaminophen [Tylenol] Allergy Mild Unknown Verified 05/12/23 10:30 morphine AdvReac Intermediate vomiting Verified 05/12/23 10:30 vancomycin AdvReac Intermediate Itching Verified 05/12/23 10:30 codeine AdvReac Anaphylaxis Verified 05/12/23 10:30 Review of Systems Review of Systems: As per HPI. Yes all other systems are reviewed and are negative PMFSH Past Medical History Medical History (Updated 05/14/23 @ 19:31 by Lina Lacy NP) Uncontrolled type 2 diabetes mellitus with hyperglycemia FELICIA (acute kidney injury) Abdominal pain Constipation Chronic respiratory failure with hypoxia Stercoral colitis Decubitus ulcer Hypoxia CHF exacerbation MDD (major depressive disorder), recurrent episode, moderate Adjustment disorder with mixed anxiety and depressed mood Panic disorder Cellulitis of right lower extremity Stasis dermatitis of both legs DANIEL (obstructive sleep apnea) Asthma Hyperglycemia due to diabetes mellitus COPD (chronic obstructive pulmonary disease) Congestive heart failure Obesity hypoventilation syndrome CKD (chronic kidney disease) stage 3, GFR 30-59 ml/min NICM (nonischemic cardiomyopathy) Acute on chronic combined systolic and diastolic CHF (congestive heart failure) Morbid obesity Diabetic neuropathy, painful Chronic pain High cholesterol Depression Hypertension Diabetes Surgical History Hx of cholecystectomy Family History Family History Mother HTN (hypertension) Diabetes CAD (coronary artery disease) Father HTN (hypertension) Diabetes CAD (coronary artery disease) Maternal Grandmother CAD (coronary artery disease) Social History Social History Household Members: None Household Members Other:: GRANDSON Housing: Apartment 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 Do you presently have visiting nurse or other home services: Yes Unable to assess alcohol history related to: Unable to respond and Refusing to respond Alcohol intake: never Patient Tobacco Use Status: Former Tobacco user Quit Date: 1999 Tobacco use type: Cigarette Years Smoked: 38 Second Hand Smoke Exposure: No Substance Use Type: Marijuana Advance Directives: Yes Advance Directives on File: Yes Advance Directives Date on File: 12/19/20 service: No Current occupational status: disabled Physical Exam Vital Signs: Vital Signs: Last Vital Signs Temp 98.5 F 05/14/23 18:45 Pulse 84 05/14/23 18:45 Resp 18 05/14/23 18:45 BP 120/35 L 05/14/23 18:45 Pulse Ox 96 05/14/23 18:45 O2 Del Method Room Air 05/14/23 18:45 BMI result Body Mass Index 48.5 Vital signs have been reviewed and appear to be correct. Blood pressure normal. Heart rate normal. Respiratory rate normal. Temperature normal. Oxygen saturation normal. Const: General: cooperative, healthy appearing and no acute distress Orientation/consciousness: patient oriented x3 Limitations: no limitations HEENT: Head: Yes normocephalic and Yes atraumatic Ears: hearing grossly normal bilaterally and external ears normal Face and sinus: Yes normal facial exam Eyes: Pupils: Equal, round and reactive pupils present Neck: Neck: Yes normal visual inspection, Yes full ROM and Yes supple Resp: Effort & Inspection: normal respiratory effort, no respiratory distress and no use of accessory muscles Auscultation: clear to auscultation bilaterally Cardio: Rate: regular rate Rhythm: regular rhythm Heart sounds: S1 normal heart sound present and S2 normal heart sound present Neuro: General: patient oriented x3, tone normal and moves all extremities Cranial nerves: Yes Equal, round and reactive pupils present Extrem: General: Yes normal to inspection, Yes full ROM and Yes capillary refill normal Psych: Appearance: grossly normal Mental Status: mental status grossly normal Speech and movement: Normal speech and movement present Affect: normal affect Attitude: cooperative Thought process: Normal thought process present Thought content: suicidality, no homicidality and no hallucinations Insight: Fair insight present (Psych) Judgement: Fair judgement present (Psych) Medical Decision Making Medical Decision Making MDM Narrative: Patient is a 63-year-old female with history of anxiety, asthma, diabetes mellitus, CHF presenting to the emergency department with complaint of waking from a nap with anxiety. On exam patient is awake, A+Ox3, VS WNL, afebrile, normal neurological exam without focal deficits, physical exam findings as above. Given reported symptoms and physical exam findings, initial differential includes acute anxiety, panic disorder, depression. Given that patient reports symptoms have resolved, does not have any physical complaints, states that she does not wish to speak with care team, feel patient is stable for discharge home at this time. Advised patient to continue to use her prescribed medications as needed. Instructed patient to follow-up with primary care provider. Return precautions discussed at bedside. Patient verbalized understanding of and agreement with plan. Differential Diagnosis Differential Diagnoses: The differential diagnosis associated with the presentation includes As per MDM. External Record Review External record reviewed: Inpatient record, Office record and Outpatient record Chronic Conditions Patient?s care impacted by: Other (anxiety) Discharge Plan Discharge Clinical Impression: Acute anxiety Patient Disposition: Home, Self-Care Instructions: Anxiety (ED), Panic Disorder (ED) Additional Instructions: Please take your medications as prescribed and follow-up with your primary care provider. Return to the emergency department if you develop any new or worsening symptoms. Prescriptions: No Action (DME) blood-glucose meter [FreeStyle Lite Meter] Kit See Rx Instructions .Route Qty: 1 0RF Rx Instructions: As directed checks POC 4 X/day insulin lispro [Humalog U-100 Insulin] 100 unit/mL Solution See Protocol subcut QIDACHS Qty: 1 0RF Protocol: Insulin Correction Scale Less than or equal to 110 ---- Give (units): 0 111 to 150 Give (units): 0 151 to 200 Give (units): 2 201 to 250 Give (units): 4 251 to 300 Give (units): 6 301 to 350 Give (units): 8 Greater than 350 Give (units): 10 Call MD if Blood Glucose > : 350 Rx Instructions: sliding scale aspirin 81 mg tablet,delayed release (DR/EC) 81 mg PO DAILY simvastatin 20 mg tablet 20 mg PO BEDTIME fluticasone propionate [Flovent HFA] 110 mcg/actuation HFA aerosol inhaler 2 puff inhalation BID gabapentin 400 mg Capsule 400 mg PO BID@0900,1500 nystatin 100,000 unit/gram Powder 1 appl TOPICAL BID PRN (Reason: Rash) Protocol: Apply to: Apply to: under breasts, around groin Rx Instructions: apply to groin area, and under breasts insulin glargine [Lantus U-100 Insulin] 100 unit/mL solution 50 unit subcut BID (DME) insulin syringe-needle U-100 [BD Insulin Syringe Ultra-Fine] 1 mL 31 gauge x 5/16 syringe MISCELLANEOUS QID isosorbide mononitrate 30 mg tablet extended release 24 hr 1 tab PO DAILY clonidine HCl 0.1 mg Tablet 0.1 mg PO TID PRN (Reason: hyperarousal, anxiety, panic) Qty: 90 0RF Protocol: Hold for SBP< HOLD for SBP < : 90 hydralazine 25 mg Tablet 25 mg PO BID Qty: 60 0RF Protocol: Hold for SBP< HOLD for SBP < : 90 bumetanide 1 mg Tablet 1 mg PO BEDTIME Qty: 30 0RF Protocol: Hold for SBP< HOLD for SBP < : 90 risperidone 1 mg tablet 1 tab PO BID lorazepam [Ativan] 0.5 mg tablet 0.5 mg PO BID PRN (Reason: anxiety) Qty: 6 0RF buspirone 10 mg Tablet 10 mg PO BID amlodipine 10 mg Tablet 10 mg PO DAILY trazodone 50 mg tablet 50 mg PO BEDTIME lidocaine 5 % adhesive patch,medicated 1 patch topical DAILY (DME) FreeStyle Lite Strips Strip See Rx Instructions .ROUTE BID Qty: 10 Rx Instructions: As directed (DME) lancets [FreeStyle Lancets] 28 gauge misc See Rx Instructions .ROUTE QID Qty: 100 Rx Instructions: As directed (DME) insulin syringe-needle U-100 [BD Insulin Syringe Ultra-Fine] 1 mL 31 gauge x 5/16 syringe See Rx Instructions .ROUTE QID Qty: 10 Rx Instructions: As directed
[2023-05-14 19:36] VITALS: BP 116/64; PULSE 75; RESP 20; O2SAT 95
== END 2023-05-14 20:49 | disposition home or self-care (01) ==
PROVIDERS: Emergency Provider Internal Medicine
DX: F41.1 Generalized anxiety disorder (principal); F43.0 Acute stress reaction; E11.9 Type 2 diabetes mellitus without complications; Z79.899 Other long term (current) drug therapy; Z79.4 Long term (current) use of insulin; Z87.891 Personal history of nicotine dependence
CPT/HCPCS: 99282; 99283

== ENCOUNTER 2023-05-15 20:37 | Emergency (ER) | payer OTHER, SELFPAY ==
[2023-05-15 20:47] VITALS: BP 156/82; PULSE 90; O2SAT 97
[2023-05-15 20:48] VITALS: BP 143/67; PULSE 88; RESP 20; TEMP 36.6; O2SAT 96; BMI 49.4
--- NOTE | 2023-05-15 20:53 | PC.NURSE ---
Pt requested and given water. Plan of care ongoing.
--- NOTE | 2023-05-15 21:18 | PC.NURSE ---
Pt yelling in rm, unable to redirect. Provider aware plan of care ongoing.
[2023-05-15 21:49] VITALS: BP 134/68; PULSE 102; RESP 16; TEMP 36.7; O2SAT 97
[2023-05-15] MEDS: LORazepam 1 MG TABLET PO (21:52)
--- NOTE | 2023-05-15 21:52 | ED.ANXIETY ---
HPI - Anxiety General Chief Complaint: Anxiety Stated Complaint: ANXIETY Time Seen by Provider: 05/15/23 21:21 Source: patient Mode of arrival: EMS Limitations: no limitations History of Present Illness HPI narrative: Patient comes to the emergency room via ambulance complaining of severe anxiety. Patient yelling, states that she needs a pill to help her calm down. Patient denies chest pain or shortness of breath, patient complaining of bilateral lower extremity pain secondary to diabetic neuropathy. Patient denies any falls. Related Data Home Medications Medication Instructions Recorded Confirmed aspirin 81 mg tablet,delayed 81 mg PO DAILY 11/23/20 04/27/23 release fluticasone propionate 110 2 puff inhalation BID 11/23/20 04/27/23 mcg/actuation HFA aerosol inhaler (Flovent HFA) simvastatin 20 mg tablet 20 mg PO BEDTIME 11/23/20 04/27/23 risperidone 1 mg tablet 1 tab PO BID 04/20/22 04/27/23 blood sugar diagnostic (FreeStyle #10 ea 06/25/22 03/26/23 Lite Strips) insulin syringe-needle U-100 1 mL #10 ea 06/25/22 03/26/23 31 gauge x 5/16 (BD Insulin Syringe Ultra-Fine) lancets 28 gauge (FreeStyle #100 ea 06/25/22 03/26/23 Lancets) gabapentin 400 mg capsule 400 mg PO BID@0900,1500 09/08/22 04/27/23 insulin glargine 100 unit/mL 50 unit subcut BID 09/08/22 04/27/23 subcutaneous solution (Lantus U-100 Insulin) nystatin 100,000 unit/gram topical 1 appl topical BID PRN Rash 09/08/22 04/27/23 powder insulin syringe-needle U-100 1 mL 09/27/22 03/26/23 31 gauge x 5/16 (BD Insulin Syringe Ultra-Fine) isosorbide mononitrate 30 mg 1 tab PO DAILY 09/28/22 04/27/23 tablet,extended release 24 hr amlodipine 10 mg tablet 10 mg PO DAILY 12/27/22 04/27/23 buspirone 10 mg tablet 10 mg PO BID 12/27/22 04/27/23 lidocaine 5 % topical patch 1 patch topical DAILY 04/27/23 04/27/23 trazodone 50 mg tablet 50 mg PO BEDTIME 04/27/23 04/27/23 Previous Rx's Medication Instructions Recorded insulin lispro 100 unit/mL See Protocol subcut QIDACHS #1 mL 01/16/21 subcutaneous solution (Humalog U-100 Insulin) clonidine HCl 0.1 mg tablet 0.1 mg PO TID PRN hyperarousal, 04/01/22 anxiety, panic #90 tabs bumetanide 1 mg tablet 1 mg PO BEDTIME #30 tabs 04/08/22 hydralazine 25 mg tablet 25 mg PO BID #60 tabs 04/08/22 blood-glucose meter (FreeStyle #1 ea 09/02/22 Lite Meter kit) lorazepam 0.5 mg tablet (Ativan) 0.5 mg PO BID PRN anxiety #6 tabs 12/16/22 Allergies Allergy/AdvReac Type Severity Reaction Status Date / Time ibuprofen Allergy Intermediate vommiting, Verified 05/15/23 20:51 itching acetaminophen [Tylenol] Allergy Mild Unknown Verified 05/15/23 20:51 morphine AdvReac Intermediate vomiting Verified 05/15/23 20:51 vancomycin AdvReac Intermediate Itching Verified 05/15/23 20:51 codeine AdvReac Anaphylaxis Verified 05/15/23 20:51 Review of Systems Review of Systems: Constitutional : No Weight loss, No Fever, No Chills, No Night Sweats, No Fatigue, No Malaise ENT/Mouth : No Hearing loss, No Ear Pain, No Nasal Congestion, No Sinus Pain, No Hoarseness, No sore throat, No Rhinorrhea, No Swallowing Difficulty Eyes: No Eye Pain, No Swelling, No Redness, No Foreign Body, No Discharge, No Vision Changes Cardiovascular : No Chest Pain, No SOB, No Dyspnea on Exertion, No Orthopnea, No Edema, No Palpitations Respiratory : No Cough, No Sputum, No Wheezing, No Smoke Exposure, No Dyspnea Gastrointestinal : No Nausea, No Vomiting, No Diarrhea, No Constipation, No abdominal Pain, No Hematochezia, No Melena Genitourinary : no irregular bleeding, No Dysuria, No Urinary Frequency, No Hematuria, No Urinary Incontinence, No Urgency, No Flank Pain, No Urinary Flow Changes, No Hesitancy Musculoskeletal : No joint pain, No Myalgias, No Joint Swelling Skin : No Skin Lesions, No rash Neuro : No Weakness, No Numbness, No Paresthesias, No Loss of Consciousness, No Dizziness, No Headache Psych : Complaining of severe anxiety, No Depression, No SI/HI/AH/VH, No Social Issues, Heme/Lymph: No Bruising, No Bleeding,No Lymphadenopathy Endocrine : No Polyuria, No Polydipsia, No Temperature Intolerance, complaining of diabetic neuropathy, chronic PMFSH Past Medical History Medical History Uncontrolled type 2 diabetes mellitus with hyperglycemia FELICIA (acute kidney injury) Abdominal pain Constipation Chronic respiratory failure with hypoxia Stercoral colitis Decubitus ulcer Hypoxia CHF exacerbation MDD (major depressive disorder), recurrent episode, moderate Adjustment disorder with mixed anxiety and depressed mood Panic disorder Cellulitis of right lower extremity Stasis dermatitis of both legs DANIEL (obstructive sleep apnea) Asthma Hyperglycemia due to diabetes mellitus COPD (chronic obstructive pulmonary disease) Congestive heart failure Obesity hypoventilation syndrome CKD (chronic kidney disease) stage 3, GFR 30-59 ml/min NICM (nonischemic cardiomyopathy) Acute on chronic combined systolic and diastolic CHF (congestive heart failure) Morbid obesity Diabetic neuropathy, painful Chronic pain High cholesterol Depression Hypertension Diabetes Surgical History Hx of cholecystectomy Family History Family History Mother HTN (hypertension) Diabetes CAD (coronary artery disease) Father HTN (hypertension) Diabetes CAD (coronary artery disease) Maternal Grandmother CAD (coronary artery disease) Social History Social History (Reviewed 05/12/23 @ 10:23 by Jessi Mcnally [facility]) Household Members: None Household Members Other:: GRANDSON Housing: 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 Do you presently have visiting nurse or other home services: Yes Unable to assess alcohol history related to: Unable to respond and Refusing to respond Alcohol intake: never Patient Tobacco Use Status: Former Tobacco user Quit Date: 1999 Tobacco use type: Cigarette Years Smoked: 38 Second Hand Smoke Exposure: No Substance Use Type: Marijuana Advance Directives: Yes Advance Directives on File: Yes Advance Directives Date on File: 12/19/20 service: No Current occupational status: disabled Physical Exam Vital Signs: Vital Signs: Last Vital Signs Temp 98.1 F 05/15/23 21:49 Pulse 102 H 05/15/23 21:49 Resp 16 05/15/23 21:49 BP 134/68 05/15/23 21:49 Pulse Ox 97 05/15/23 21:49 O2 Del Method Room Air 05/15/23 21:49 BMI result Body Mass Index 49.4 Const: Other: Appearance: Alert. Oriented X3. Very anxious, screaming that she needs medication for panic attack Eyes: Pupils equal, round and reactive to light. ENT: Pharynx normal. Neck: Normal inspection. Neck supple. No lymph nodes noted. No crepitus CVS: Normal heart rate and rhythm. Pulses normal. Normal S1 and S2 Respiratory: No respiratory distress. Breath sounds normal. No Wheezing. No rales Abdomen: Soft and nontender. No rigidity. No distention. Skin: Skin warm and dry. Normal skin color. Normal skin turgor. Extremities: No lower extremity edema. No Lacerations. No Rash Neuro: Oriented X 3. No motor deficit. No sensory deficit. Moving all extremities. No slurred speech. CN 2 through 12 grossly intact Psych: Very anxious, screaming Course Course Course Narrative: -I discussed with the patient she will be receiving p.o. Ativan. Discussed with the patient that she needs a long-term treatment. Patient has been evaluated multiple times in the ED for the same complaint. Patient agreeable to stay for a care team evaluation so they can help her set up a therapist and eventually a psychiatrist to help her with her anxiety/panic attacks. Patient agreeable, and states that she does not have any providers for mental health and would like to start therapy. Medications Administered Discontinued Medications Generic Name Dose Route Start Last Admin Trade Name Pankaj PRN Reason Stop Dose Admin Lorazepam 1 mg 05/15/23 21:46 05/15/23 21:52 Lorazepam 1 Mg Tablet PO 05/15/23 21:47 1 mg ONCE ONE Administration Medical Decision Making Medical Decision Making MDM Narrative: -after patient got p.o. Ativan, patient states that she no longer wants to see the care team wants to be discharged home. -patient has a clear pattern of coming to the emergency room seeking benzodiazepines. I would recommend that no cbenzodiazepin medication should be given to the patient by the ED providers. Patient needs stable Care by therapy/provider. Differential Diagnosis Differential Diagnoses: The differential diagnosis associated with the presentation includes (Anxiety, medication seeking) Lab Data Labs: Lab Results 05/15/23 Range/Units 21:46 Urine Color Yellow Urine Appearance Cloudy Urine pH 6.0 (5.0-9.0) Ur Specific [place] 1.015 (1.005-1.025) Urine Protein Trace (Neg-Trace) mg/dL Urine Glucose (UA) Negative (Negative) mg/dL Urine Ketones Negative (Negative) mg/dL Urine Blood Negative (Negative) Urine Nitrite Negative (Negative) Ur Leukocyte Esterase Small (1+) H (Negative) Discharge Plan Discharge Clinical Impression: Anxiety Patient Disposition: Home, Self-Care Instructions: Anxiety (ED) Additional Instructions: Please follow-up with your primary care physician tomorrow. If you have any worsening or new symptoms, please return to the emergency room or call 911 Prescriptions: No Action (DME) blood-glucose meter [FreeStyle Lite Meter] Kit See Rx Instructions .Route Qty: 1 0RF Rx Instructions: As directed checks POC 4 X/day insulin lispro [Humalog U-100 Insulin] 100 unit/mL Solution See Protocol subcut QIDACHS Qty: 1 0RF Protocol: Insulin Correction Scale Less than or equal to 110 ---- Give (units): 0 111 to 150 Give (units): 0 151 to 200 Give (units): 2 201 to 250 Give (units): 4 251 to 300 Give (units): 6 301 to 350 Give (units): 8 Greater than 350 Give (units): 10 Call MD if Blood Glucose > : 350 Rx Instructions: sliding scale aspirin 81 mg tablet,delayed release (DR/EC) 81 mg PO DAILY simvastatin 20 mg tablet 20 mg PO BEDTIME fluticasone propionate [Flovent HFA] 110 mcg/actuation HFA aerosol inhaler 2 puff inhalation BID gabapentin 400 mg Capsule 400 mg PO BID@0900,1500 nystatin 100,000 unit/gram Powder 1 appl TOPICAL BID PRN (Reason: Rash) Protocol: Apply to: Apply to: under breasts, around groin Rx Instructions: apply to groin area, and under breasts insulin glargine [Lantus U-100 Insulin] 100 unit/mL solution 50 unit subcut BID (DME) insulin syringe-needle U-100 [BD Insulin Syringe Ultra-Fine] 1 mL 31 gauge x 5/16 syringe MISCELLANEOUS QID isosorbide mononitrate 30 mg tablet extended release 24 hr 1 tab PO DAILY clonidine HCl 0.1 mg Tablet 0.1 mg PO TID PRN (Reason: hyperarousal, anxiety, panic) Qty: 90 0RF Protocol: Hold for SBP< HOLD for SBP < : 90 hydralazine 25 mg Tablet 25 mg PO BID Qty: 60 0RF Protocol: Hold for SBP< HOLD for SBP < : 90 bumetanide 1 mg Tablet 1 mg PO BEDTIME Qty: 30 0RF Protocol: Hold for SBP< HOLD for SBP < : 90 risperidone 1 mg tablet 1 tab PO BID lorazepam [Ativan] 0.5 mg tablet 0.5 mg PO BID PRN (Reason: anxiety) Qty: 6 0RF buspirone 10 mg Tablet 10 mg PO BID amlodipine 10 mg Tablet 10 mg PO DAILY trazodone 50 mg tablet 50 mg PO BEDTIME lidocaine 5 % adhesive patch,medicated 1 patch topical DAILY (DME) FreeStyle Lite Strips Strip See Rx Instructions .ROUTE BID Qty: 10 Rx Instructions: As directed (DME) lancets [FreeStyle Lancets] 28 gauge misc See Rx Instructions .ROUTE QID Qty: 100 Rx Instructions: As directed (DME) insulin syringe-needle U-100 [BD Insulin Syringe Ultra-Fine] 1 mL 31 gauge x 5/16 syringe See Rx Instructions .ROUTE QID Qty: 10 Rx Instructions: As directed
--- NOTE | 2023-05-15 21:53 | PC.NURSE ---
Pt UA collected and sent Pt medicated per sep. Plan of care ongoing.
[2023-05-15 21:55] LABS: Appearance Urine Cloudy; Color Urine Yellow; Glucose Urine UA Negative (Negative); Leukocyte Esterase Urine Small (1+) (Negative); Nitrite Urine Negative (Negative); Specific Gravity - Urine 1.015 (1.005-1.025); UMIC TRIGGER UACC YES; Urine Blood Negative (Negative); Urine Ketones Negative (Negative); Urine Protein Trace mg/dL (Neg-Trace)
[2023-05-15 22:08] LABS: Bacteria Urine 1+ (None Seen); Hyaline Casts Urine 0-2 /LPF (0-2); UACC Culture Trigger YES
--- NOTE | 2023-05-15 22:09 | MHC.EDTECH ---
no labs draws and urine collected on patient per md maki request .
--- NOTE | 2023-05-15 22:42 | PC.NURSE ---
Pt assisted onto bed mei by remediation technician Milagro. Pt calm and resting. Plan of care ongoing.
--- NOTE | 2023-05-15 22:44 | MHC.EDTECH ---
Call out to [facility] at [phone] to book transport for pt back home, estimated eta given was [id number]
== END 2023-05-15 23:43 | disposition home or self-care (01) ==
PROVIDERS: Emergency Provider Emergency Medicine
DX: F41.9 Anxiety disorder, unspecified (principal); E11.22 Type 2 diabetes mellitus with diabetic chronic kidney disease; I13.0 Hypertensive heart and chronic kidney disease with heart failure and stage 1 through stage 4 chronic kidney disease, or unspecified chronic kidney disease; N18.30 Chronic kidney disease, stage 3 unspecified; I50.9 Heart failure, unspecified; J96.11 Chronic respiratory failure with hypoxia; Z87.891 Personal history of nicotine dependence; Z79.82 Long term (current) use of aspirin; Z79.4 Long term (current) use of insulin; Z79.899 Other long term (current) drug therapy
CPT/HCPCS: 81001; 87086; 99284

== ENCOUNTER 2023-09-20 17:46 | Inpatient (IN) | payer OTHER, SELFPAY ==
--- NOTE | ~2023-09-20 | NM_ITS ---
EXAMINATION: PULMONARY PERFUSION STUDY CLINICAL INFORMATION: Chest pain elevated d-dimer. COMPARISON: The previous lung scan dated 01/28/2023 is available for comparison. A radiograph of the chest dated 09/20/2023 is available for comparison. TECHNIQUE: Following the intravenous injection of 4.0 mCi Tc-99m MAA, the lungs were imaged in the anterior and posterior, left and right lateral and [place], [place]TE[place], LPO, and RPO projections using a gamma scintillation camera. FINDINGS: No segmental perfusion defects are present. There is homogeneous distribution of activity bilaterally. There are no focal anatomic appearing perfusion defects present. The cardiac silhouette is mildly dilated. Compared to the previous scan dated 01/28/2023 there has not been a significant change. NM/NM pul perfusion IMPRESSION: Very low probability of pulmonary embolism. Cardiomegaly.
--- NOTE | ~2023-09-20 | XR_ITS ---
EXAMINATION: XR CHEST CLINICAL INFORMATION: Chest pain COMPARISON: Previous chest x-ray April 2023 TECHNIQUE: Frontal view of the chest was obtained. FINDINGS: The cardiac silhouette is enlarged but stable. Question pulmonary venous redistribution. Lungs are otherwise clear. No pleural effusion or pneumothorax. XR/XR chest 1V IMPRESSION: Stable enlargement of the cardiac silhouette. Question pulmonary venous redistribution.
[2023-09-20 17:58] VITALS: PULSE 104; O2SAT 99; BMI 53.4
[2023-09-20] MEDS: LORazepam 1 MG TABLET 2 MG PO (18:19)
--- NOTE | 2023-09-20 18:34 | ED.GENADULT ---
HPI - General Adult General Chief complaint: Anxiety Stated complaint: ANXIETY Time Seen by Provider: 09/20/23 17:52 Source: patient Mode of arrival: ambulatory Limitations: no limitations History of Present Illness HPI narrative: 63 yold female with pmh DM, CHF, asthma, oxygen dependent, Decubitus ulcer., anxiety presents to the ED presents to the ED for anxiety attack. patient states today is the date of her mother and brothers and she started crying uncontrollably and being anxious( nervous). Patient states no chest pain, shortness of breath, leg swelling, calf pain, pleurisy, abdominal pain, weakness, dizziness, or any other concerning symptoms. Patient denies any suicidal/homicidal ideation. Related Data Home Medications Medication Instructions Recorded Confirmed aspirin 81 mg tablet,delayed 81 mg PO DAILY 11/23/20 04/27/23 release fluticasone propionate 110 2 puff inhalation BID 11/23/20 04/27/23 mcg/actuation HFA aerosol inhaler (Flovent HFA) simvastatin 20 mg tablet 20 mg PO BEDTIME 11/23/20 04/27/23 risperidone 1 mg tablet 1 tab PO BID 04/20/22 04/27/23 blood sugar diagnostic (FreeStyle #10 ea 06/25/22 03/26/23 Lite Strips) insulin syringe-needle U-100 1 mL #10 ea 06/25/22 03/26/23 31 gauge x 5/16 (BD Insulin Syringe Ultra-Fine) lancets 28 gauge (FreeStyle #100 ea 06/25/22 03/26/23 Lancets) gabapentin 400 mg capsule 400 mg PO BID@0900,1500 09/08/22 04/27/23 insulin glargine 100 unit/mL 50 unit subcut BID 09/08/22 04/27/23 subcutaneous solution (Lantus U-100 Insulin) nystatin 100,000 unit/gram topical 1 appl topical BID PRN Rash 09/08/22 04/27/23 powder insulin syringe-needle U-100 1 mL 09/27/22 03/26/23 31 gauge x 5/16 (BD Insulin Syringe Ultra-Fine) isosorbide mononitrate 30 mg 1 tab PO DAILY 09/28/22 04/27/23 tablet,extended release 24 hr amlodipine 10 mg tablet 10 mg PO DAILY 12/27/22 04/27/23 buspirone 10 mg tablet 10 mg PO BID 12/27/22 04/27/23 lidocaine 5 % topical patch 1 patch topical DAILY 04/27/23 04/27/23 trazodone 50 mg tablet 50 mg PO BEDTIME 04/27/23 04/27/23 Previous Rx's Medication Instructions Recorded insulin lispro 100 unit/mL See Protocol subcut QIDACHS #1 mL 01/16/21 subcutaneous solution (Humalog U-100 Insulin) clonidine HCl 0.1 mg tablet 0.1 mg PO TID PRN hyperarousal, 04/01/22 anxiety, panic #90 tabs bumetanide 1 mg tablet 1 mg PO BEDTIME #30 tabs 04/08/22 hydralazine 25 mg tablet 25 mg PO BID #60 tabs 04/08/22 blood-glucose meter (FreeStyle #1 ea 09/02/22 Lite Meter kit) lorazepam 0.5 mg tablet (Ativan) 0.5 mg PO BID PRN anxiety #6 tabs 12/16/22 Allergies Allergy/AdvReac Type Severity Reaction Status Date / Time ibuprofen Allergy Intermediate vomiting, Verified 08/11/23 11:00 itching acetaminophen [Tylenol] Allergy Unknown Unknown Verified 08/11/23 11:00 codeine AdvReac Severe Anaphylaxis Verified 08/11/23 11:00 morphine AdvReac Intermediate vomiting Verified 05/15/23 20:51 vancomycin AdvReac Intermediate Itching Verified 05/15/23 20:51 Review of Systems Review of Systems: anxiety attack Yes all other systems are reviewed and are negative [facility] Past Medical History Medical History (Updated 09/21/23 @ 02:19 by GUADALUPE Whyte) Uncontrolled type 2 diabetes mellitus with hyperglycemia FELICIA (acute kidney injury) Abdominal pain Constipation Chronic respiratory failure with hypoxia Stercoral colitis Decubitus ulcer Hypoxia CHF exacerbation MDD (major depressive disorder), recurrent episode, moderate Adjustment disorder with mixed anxiety and depressed mood Panic disorder Cellulitis of right lower extremity Stasis dermatitis of both legs DANIEL (obstructive sleep apnea) Asthma Hyperglycemia due to diabetes mellitus COPD (chronic obstructive pulmonary disease) Congestive heart failure Obesity hypoventilation syndrome CKD (chronic kidney disease) stage 3, GFR 30-59 ml/min NICM (nonischemic cardiomyopathy) Acute on chronic combined systolic and diastolic CHF (congestive heart failure) Morbid obesity Diabetic neuropathy, painful Chronic pain High cholesterol Depression Hypertension Diabetes Surgical History (Updated 08/11/23 @ 10:54 by Sarah Sharif RN) History of surgery Hx of cholecystectomy Family History Family History Mother HTN (hypertension) Diabetes CAD (coronary artery disease) Father HTN (hypertension) Diabetes CAD (coronary artery disease) Maternal Grandmother CAD (coronary artery disease) Social History Social History Household Members: None Household Members Other:: GRANDSON Housing: Apartment 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 Do you presently have visiting nurse or other home services: Yes Unable to assess alcohol history related to: Unable to respond and Refusing to respond Alcohol intake: former Comment: 1:1 Patient Tobacco Use Status: Former Tobacco user Quit Date: 1999 Tobacco use type: Cigarette Years Smoked: 38 Smoked in Last 30 Days: No Second Hand Smoke Exposure: No Use of substances other than those prescribed or required for medical reasons: No Substance Use Type: Marijuana Advance Directives: Yes Advance Directives on File: Yes Advance Directives Date on File: 12/19/20 Patient : No service: No Current occupational status: disabled Physical Exam ED Vital Signs: Vital Signs - 24 hr 09/20/23 18:50 09/20/23 20:42 09/20/23 23:49 Temperature 98.7 F 98.1 F Pulse Rate 98 91 84 Respiratory Rate 18 20 18 Blood Pressure 142/49 H 136/49 L 122/61 Pulse Oximetry 97 99 97 Oxygen Delivery Method Nasal Cannula Nasal Cannula Nasal Cannula Oxygen Flow Rate 2 2 2 BMI result Body Mass Index 53.4 Const General: cooperative, healthy appearing, comfortable, no acute distress, well developed, alert, awake and Physically active Orientation/consciousness: oriented to person, oriented to place, oriented to time and patient oriented x3 HENMT Head: Yes normal to inspection, Yes No palpable skull fracture present, Yes normocephalic, Yes atraumatic and No abrasion Eyes General: appearance normal, both eyes and all related structures Neck Neck: Yes normal visual inspection, Yes full ROM, Yes no lymphadenopathy, Yes no meningeal signs, Yes trachea midline, Yes supple, No anterior neck swelling and No tender Chest Chest palpation & inspection: normal inspection of the chest and normal palpation of entire chest wall Resp Effort & Inspection: normal respiratory effort and able to speak in complete sentences Auscultation: clear to auscultation bilaterally Cardio Jugular venous distension: no JVD Heart sounds: S1 normal heart sound present and S2 normal heart sound present GI Inspection: Yes normal to inspection Palpation (GI): Soft to palpation, not firm, nontender, no guarding and not rigid General: No CVA tenderness and Yes no CVA tenderness Back/Spine/Pelvis Back: no CVA tenderness, No CVA tenderness and No back tenderness Skin General skin exam: no rashes or lesions noted, elasticity normal and turgor normal Neuro General: oriented to person, oriented to place, oriented to time, patient oriented x3, gait normal, tone normal, moves all extremities, Normal light touch and pain sensation, no meningeal signs, no focal motor deficits, CN's II-XI intact bilaterally and normal sensation to monofilament Extrem Other: Bilateral lower extremities negative for pittinge edmea or calf tendrness. Positive for chronic swelling General: Yes normal to inspection and Yes full ROM Psych Appearance: grossly normal, well kempt and not disheveled Medications Administered Discontinued Medications Generic Name Dose Route Start Last Admin Trade Name Freq PRN Reason Stop Dose Admin Sodium Chloride 500 mls @ 500 mls/hr 09/20/23 22:23 09/21/23 00:39 Ns IV 09/20/23 23:22 Infused .Q1H STA Infusion Lorazepam 2 mg 09/20/23 18:04 09/20/23 18:19 Lorazepam 1 Mg Tablet PO 09/20/23 18:05 2 mg ONCE ONE Administration Lorazepam 2 mg 09/21/23 01:57 09/21/23 02:13 Lorazepam 1 Mg Tablet PO 09/21/23 01:58 2 mg ONCE ONE Administration Medical Decision Making Medical Decision Making [facility] Narrative: 63 yold female presents to the ED for anxiety attack. Patient states today is the day her brother and mother 24 years ago which caused her to be triggered having anxiety attack. Patient denies any chest pain shortness of breath, leg swelling, calf pain, coughing up blood or abdominal pain. Patient requesting benzos to deal with anxiety attack. Patient has been here multiple times for similar complaints. Present no medical intervention needed. Patient is not suicidal homicidal. Patient cyring an shaking in tears 9:01pm: Patient now states having right-sided chest pain. Most likely anxiety but due to risk factors we will do medical evaluation. 1:15pm: Patient D-dimer positive. Patient given fluid and attempt to reverse a KI to do a chest CTA but kidney function worsening. Will contact hospitalist for admission. Differential Diagnosis Differential Diagnoses: The differential diagnosis associated with the presentation includes (anxiety, FELICIA, CO, CHF) Admission/Observation Consideration of admission/observation: Escalation of care including admission/observation considered Consult Healthcare Provider Management of the patient was discussed with: Hospitalist (Dr. Martin) Lab Data MDM Lab Attestation statement: I reviewed the patient's lab results. 09/20/23 21:36 09/21/23 00:53 Labs: Lab Results 09/20/23 09/21/23 09/21/23 Range/Units 21:36 00:25 00:53 WBC 8.7 (4.8-10.8) X10*3/uL RBC 3.51 L (4.20-5.50) X10*6/uL Hgb 9.2 L (12.0-16.0) g/dl Hct 30.7 L (37.0-47.0) % MCV 87.5 (80.0-98.0) fL MCH 26.2 L (27.0-33.0) pg MCHC 30.0 L (31.0-35.0) g/dl RDW 15.6 (11.0-16.0) % Plt Count 189 D (160-400) X10*3/uL MPV 9.3 L (9.4-12.3) fL Immature Gran % (Auto) 0.3 (0.0-0.4) % Neut % (Auto) 73.4 H (45-73) % Lymph % (Auto) 14.8 L (20-40) % [place] % (Auto) 8.9 (2-11) % Eos % (Auto) 2.3 (0-4) % Baso % (Auto) 0.3 (0-2) % Lymph # (Auto) 1.3 (1.2-4.9) X10*3/uL [place] # (Auto) 0.8 (0.1-1.2) X10*3/uL Eos # (Auto) 0.2 (0.0-0.4) X10*3/uL Baso # (Auto) 0.0 (0.0-0.2) X10*3/uL Abs Immat Gran (auto) 0.03 (0.00-0.03) X10*3/uL Absolute Neuts (auto) 6.4 (2.0-8.3) x10*3/uL Absolute Nucleated RBC 0.000 (0.0-0.012) X10*3/uL Nucleated RBC % (auto) 0.0 (0.0-0.2) /100WBC PT 11.8 (11.1-13.3) SEC INR 1.0 (0.9-1.1) APTT 30.3 (26.0-36.8) SEC D-Dimer High Sensitivty 307 NG/ML Sodium 143 143 (135-145) mmol/L Potassium 5.0 4.6 (3.3-5.1) mmol/L Chloride 104 107 (96-108) mmol/L Carbon Dioxide 31 H 30 H (22-29) mmol/L Anion Gap 13 11 L (12-20) BUN 43 H 41 H (9-16) mg/dL Creatinine 1.52 H 1.55 H (0.5-1.4) mg/dL Estim Creat Clear Calc 50.2 49.3 Estimated GFR 35 34 Random Glucose 147 H 82 (60-115) mg/dL Calcium 8.7 8.6 (8.4-10.2) mg/dL Magnesium 2.6 (1.6-2.6) mg/dL Total Bilirubin 0.2 0.3 (0.0-1.0) mg/dL AST 13 12 (5-31) U/L ALT 8 8 (0-31) U/L Alkaline Phosphatase 68 75 (39-117) U/L Troponin I High Sens 8.8 D 10.7 (<3.5-17.0) ng/L B-Natriuretic Peptide 100 (<100) pg/mL Total Protein 7.0 7.2 (6.5-8.0) g/dL Albumin 3.6 3.7 (3.5-5.0) g/dL Independent Interpretation I performed an independent interpretation of an: Plain X-Ray Independent Historian Clinical information obtained from an independent historian. History obtained from or confirmed by: EMS and Other (patient) External Record Review External record reviewed: Other (prior visits) Social Determinants Patient?s care significantly limited by Social Determinants of Health including: Other Social Determinant of Health (anxiety) Discharge Plan Discharge Clinical Impression: FELICIA (acute kidney injury), Elevated d-dimer, Chest pain Patient Disposition: Admitted As Inpatient
[2023-09-20 18:50] VITALS: BP 142/49; PULSE 98; RESP 18; TEMP 37.1; O2SAT 97
--- NOTE | 2023-09-20 19:49 | PC.NURSE ---
This production underwriter assumed care of this Pt at 1900. Pt appears to be sleeping, awakens with verbal stimuli, reports feeling better, requesting food. [place] and PO fluids given.
[2023-09-20 20:42] VITALS: BP 136/49; PULSE 91; RESP 20; O2SAT 99
--- NOTE | 2023-09-20 20:59 | ECG_ITS ---
Test Reason : CHEST PAIN Blood Pressure : / mmHG Vent. Rate : 086 BPM Atrial Rate : 086 BPM P-R Int : 158 ms QRS Dur : 102 ms QT Int : 416 ms P-R-T Axes : 054 029 068 degrees QTc Int : 497 ms Normal sinus rhythm Prolonged QT Abnormal ECG When compared with ECG of 26-MAR-2023 19:28, Aberrant conduction is no longer Present Referred By: Tray Bermeo Electronically Signed By:Orlando Hebert
--- NOTE | 2023-09-20 21:00 | PC.NURSE ---
Pt reports 5/10 non radiating right sided CP. Provider Nitza Bermeo made aware.
[2023-09-20 21:40] LABS: MANUAL DIFF FLAG NO
[2023-09-20 21:42] LABS: Basophils Percent Auto 0.3 % (0-2); Eosinophils Absolute Auto 0.2 X10*3/uL (0.0-0.4); Eosinophils Percent Auto 2.3 % (0-4); Hematocrit 30.7 % (37.0-47.0); Hemoglobin 9.2 g/dl (12.0-16.0); Imm Gran Abs Auto 0.03 X10*3/uL (0.00-0.03); Imm Gran Pct Auto 0.3 % (0.0-0.4); Lymphocytes Absolute Auto 1.3 X10*3/uL (1.2-4.9); Lymphocytes Percent Auto 14.8 % (20-40); Mean Corpuscular Hemoglobin 26.2 pg (27.0-33.0); Mean Corpuscular Volume 87.5 fL (80.0-98.0); Mean Platelet Volume 9.3 fL (9.4-12.3); Monocytes Absolute Auto 0.8 X10*3/uL (0.1-1.2); Monocytes Percent Auto 8.9 % (2-11); Neutrophils Absolute Auto 6.4 x10*3/uL (2.0-8.3); Neutrophils Percent Auto 73.4 % (45-73); Platelet Count 189 X10*3/uL (160-400); Red Blood Count 3.51 X10*6/uL (4.20-5.50); Red Cell Distribution Width 15.6 % (11.0-16.0); White Blood Count 8.7 X10*3/uL (4.8-10.8)
[2023-09-20 21:46] LABS: Prothrombin Time 11.8 SEC (11.1-13.3)
[2023-09-20 21:49] LABS: Partial Thromboplastin Time 30.3 SEC (26.0-36.8)
[2023-09-20 21:55] LABS: Alanine Aminotransferase 8 U/L (0-31); Albumin Level 3.6 g/dL (3.5-5.0); Alkaline Phosphatase 68 U/L (39-117); Anion Gap 13 (12-20); Aspartate Amino Transferase 13 U/L (5-31); Bilirubin Total 0.2 mg/dL (0.0-1.0); Blood Urea Nitrogen 43 mg/dL (9-16); Calcium 8.7 mg/dL (8.4-10.2); Carbon Dioxide 31 mmol/L (22-29); Chloride 104 mmol/L (96-108); Creatinine Clr Calc Pharmacy 50.2; Estimated Glomerular Filt Rate 35; Glucose Random 147 mg/dL (60-115); Sodium 143 mmol/L (135-145)
[2023-09-20 22:01] LABS: B Type Natriuretic Peptide 100 pg/mL (<100)
[2023-09-20 22:02] LABS: Troponin-I High Sensitivity 8.8 ng/L (<3.5-17.0)
[2023-09-20] MEDS: 0.9 % Sodium Chloride 500 ML IV (23:04)
[2023-09-20 23:36] LABS: D Dimer High Sensitivity 307 NG/ML
[2023-09-20 23:49] VITALS: BP 122/61; PULSE 84; RESP 18; TEMP 36.7; O2SAT 97
[2023-09-21 00:50] LABS: Troponin-I High Sensitivity 10.7 ng/L (<3.5-17.0)
[2023-09-21 01:10] LABS: Alanine Aminotransferase 8 U/L (0-31); Albumin Level 3.7 g/dL (3.5-5.0); Alkaline Phosphatase 75 U/L (39-117); Anion Gap 11 (12-20); Aspartate Amino Transferase 12 U/L (5-31); Bilirubin Total 0.3 mg/dL (0.0-1.0); Blood Urea Nitrogen 41 mg/dL (9-16); Calcium 8.6 mg/dL (8.4-10.2); Carbon Dioxide 30 mmol/L (22-29); Chloride 107 mmol/L (96-108); Creatinine Clr Calc Pharmacy 49.3; Estimated Glomerular Filt Rate 34; Glucose Random 82 mg/dL (60-115); Potassium 4.6 mmol/L (3.3-5.1); Sodium 143 mmol/L (135-145); Total Protein 7.2 g/dL (6.5-8.0)
--- NOTE | 2023-09-21 01:40 | PC.NURSE ---
Pt yelling and crying, repetitively stating that she wants to go home. Provider made aware and spoke to Pt to complete tx.
--- NOTE | 2023-09-21 01:57 | P.HPHOSP_ITS ---
History of Present Illness Date of Service: 09/21/23 Chief Complaint: Chest pain This is a 63-year-old female with pertinent history of chronic hypoxemic respiratory failure due to COPD, DANIEL/OHS on 2 L supplemental oxygen, congestive heart failure with reduced ejection fraction, CKD stage 3, morbid obesity, insulin-dependent diabetes mellitus, mood disorder, essential hypertension who presents to the emergency department for chest discomfort and anxiety like symptoms. Patient states she started feeling anxious on the day of presentation. She had sudden onset of midsternal chest discomfort which worsened with deep inspiration. She also felt like she could not breathe which lasted momentarily. No fever, chills, palpitations, abdominal pain, changes in urinary or bowel habits. Of note, patient was admitted on 04/27/2023 with FELICIA and discharged on 04/29/2023. In the emergency department, patient's creatinine and D-dimer found to be elevated. Resuscitated with IV crystalloids Review of Systems 2 Constitutional: Constitutional: Reports no additional constitutional complaints Cardiovascular: Cardiovascular: Reports chest pain Respiratory: Respiratory: Reports no additional respiratory complaints Gastrointestinal: Gastrointestinal: Reports no additional gastrointestinal complaints Genitourinary: Genitourinary: Reports no additional female genitourinary complaints Psychiatric: Psychiatric: Reports anxiety [facility] Medical History Uncontrolled type 2 diabetes mellitus with hyperglycemia FELICIA (acute kidney injury) Abdominal pain Constipation Chronic respiratory failure with hypoxia Stercoral colitis Decubitus ulcer Hypoxia CHF exacerbation MDD (major depressive disorder), recurrent episode, moderate Adjustment disorder with mixed anxiety and depressed mood Panic disorder Cellulitis of right lower extremity Stasis dermatitis of both legs DANIEL (obstructive sleep apnea) Asthma Hyperglycemia due to diabetes mellitus COPD (chronic obstructive pulmonary disease) Congestive heart failure Obesity hypoventilation syndrome CKD (chronic kidney disease) stage 3, GFR 30-59 ml/min NICM (nonischemic cardiomyopathy) Acute on chronic combined systolic and diastolic CHF (congestive heart failure) Morbid obesity Diabetic neuropathy, painful Chronic pain High cholesterol Depression Hypertension Diabetes Family History Mother HTN (hypertension) Diabetes CAD (coronary artery disease) Father HTN (hypertension) Diabetes CAD (coronary artery disease) Maternal Grandmother CAD (coronary artery disease) Surgical History (Updated 01/23/24 @ 10:54 by Sarah Sharif RN) History of surgery Hx of cholecystectomy Social History Household Members: None Household Members Other:: GRANDSON Housing: Apartment 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 Do you presently have visiting nurse or other home services: Yes Unable to assess alcohol history related to: Unable to respond and Refusing to respond Alcohol intake: former Comment: 1:1 Patient Tobacco Use Status: Former Tobacco user Quit Date: 1999 Tobacco use type: Cigarette Years Smoked: 38 Smoked in Last 30 Days: No Second Hand Smoke Exposure: No Use of substances other than those prescribed or required for medical reasons: No Substance Use Type: Marijuana Advance Directives: Yes Advance Directives on File: Yes Advance Directives Date on File: 12/19/20 Patient : No service: No Current occupational status: disabled Meds Allergies Allergy/AdvReac Type Severity Reaction Status Date / Time ibuprofen Allergy Intermediate vomiting, Verified 08/11/23 11:00 itching acetaminophen [Tylenol] Allergy Unknown Unknown Verified 08/11/23 11:00 codeine AdvReac Severe Anaphylaxis Verified 08/11/23 11:00 morphine AdvReac Intermediate vomiting Verified 05/15/23 20:51 vancomycin AdvReac Intermediate Itching Verified 05/15/23 20:51 Home Medications Medication Instructions Recorded Confirmed Last Taken Type aspirin 81 mg tablet,delayed 81 mg PO DAILY 11/23/20 04/27/23 04/26/23 History release fluticasone propionate 110 2 puff inhalation BID 11/23/20 04/27/23 03/26/23 History mcg/actuation HFA aerosol inhaler (Flovent HFA) simvastatin 20 mg tablet 20 mg PO BEDTIME 11/23/20 04/27/23 04/26/23 History risperidone 1 mg tablet 1 tab PO BID 04/20/22 04/27/23 04/26/23 History blood sugar diagnostic (FreeStyle #10 ea 06/25/22 03/26/23 Unknown History Lite Strips) insulin syringe-needle U-100 1 mL #10 ea 06/25/22 03/26/23 Unknown History 31 gauge x 5/16 (BD Insulin Syringe Ultra-Fine) lancets 28 gauge (FreeStyle #100 ea 06/25/22 03/26/23 Unknown History Lancets) gabapentin 400 mg capsule 400 mg PO BID@0900,1500 09/08/22 04/27/23 04/26/23 History insulin glargine 100 unit/mL 50 unit subcut BID 09/08/22 04/27/23 04/26/23 History subcutaneous solution (Lantus U-100 Insulin) nystatin 100,000 unit/gram topical 1 appl topical BID PRN Rash 09/08/22 04/27/23 Unknown History powder insulin syringe-needle U-100 1 mL 09/27/22 03/26/23 Unknown History 31 gauge x 5/16 (BD Insulin Syringe Ultra-Fine) isosorbide mononitrate 30 mg 1 tab PO DAILY 09/28/22 04/27/23 04/26/23 History tablet,extended release 24 hr amlodipine 10 mg tablet 10 mg PO DAILY 12/27/22 04/27/23 04/26/23 History buspirone 10 mg tablet 10 mg PO BID 12/27/22 04/27/23 04/26/23 History lidocaine 5 % topical patch 1 patch topical DAILY 04/27/23 04/27/23 Unknown History trazodone 50 mg tablet 50 mg PO BEDTIME 04/27/23 04/27/23 04/26/23 History Physical Exam 2 Vital Signs and Narrative: Vital Signs: Last Vital Signs Temp 98.1 F 09/20/23 23:49 Pulse 84 09/20/23 23:49 Resp 18 09/20/23 23:49 BP 122/61 09/20/23 23:49 Pulse Ox 97 09/20/23 23:49 O2 Del Method Nasal Cannula 09/20/23 23:49 O2 Flow Rate 2 09/20/23 23:49 BMI result Body Mass Index 53.4 Middle-aged female lying in bed supplemental oxygen Neck supple, no JVD Regular rate and rhythm, S1-S2 heard Regular breath sounds bilaterally, no wheezing or crackles appreciated Abdomen soft nontender, no guarding, no rigidity Patient is awake, alert and oriented to self, place, time and person ; no focal motor deficit Psych: Anxious No pedal edema Results Labs 09/20/23 21:36 09/21/23 00:53 Labs: Laboratory Results - last 24 hr 09/20/23 09/21/23 09/21/23 21:36 00:25 00:53 MCV 87.5 MCH 26.2 L MCHC 30.0 L RDW 15.6 Plt Count 189 D MPV 9.3 L Immature Gran % (Auto) 0.3 Neut % (Auto) 73.4 H Lymph % (Auto) 14.8 L [place] % (Auto) 8.9 Eos % (Auto) 2.3 Baso % (Auto) 0.3 Lymph # (Auto) 1.3 [place] # (Auto) 0.8 Eos # (Auto) 0.2 Baso # (Auto) 0.0 Abs Immat Gran (auto) 0.03 Absolute Neuts (auto) 6.4 Absolute Nucleated RBC 0.000 Nucleated RBC % (auto) 0.0 PT 11.8 INR 1.0 APTT 30.3 D-Dimer High Sensitivty 307 Anion Gap 13 11 L Estim Creat Clear Calc 50.2 49.3 Estimated GFR 35 34 Random Glucose 147 H 82 Calcium 8.7 8.6 Total Bilirubin 0.2 0.3 AST 13 12 ALT 8 8 Alkaline Phosphatase 68 75 Troponin I High Sens 8.8 D 10.7 B-Natriuretic Peptide 100 Total Protein 7.0 7.2 Albumin 3.6 3.7 Imaging Radiologist's Impressions: Impressions Chest X-Ray 09/20/23 21:06 IMPRESSION: Stable enlargement of the cardiac silhouette. Question pulmonary venous redistribution. Assessment and Plan (1) FELICIA (acute kidney injury): Status: Acute (2) Elevated d-dimer: Status: Acute (3) Chest pain: Status: Acute Plan This is a 63-year-old female with pertinent history of chronic hypoxemic respiratory failure due to COPD, DANIEL/OHS on 2 L supplemental oxygen, congestive heart failure with reduced ejection fraction, CKD stage 3, morbid obesity, insulin-dependent diabetes mellitus, mood disorder, essential hypertension who presents to the emergency department for chest discomfort and anxiety like symptoms. #. Acute kidney injury on CKD: Resuscitated with IV crystalloids in the ER. Monitor creatinine and urine output. Avoid nephrotoxins #. Chest discomfort: ?due to anxiety. States it is pleuritic in nature. D- dimer elevated. Will obtain V/Q scan. Trend troponin #. Generalized anxiety, uncontrolled: Continue home mood stabilizers. Consulting Psychiatry to optimize #. Insulin-dependent diabetes mellitus: Initiating basal plus insulin regimen #. Chronic hypoxemic respiratory failure due to COPD, DANIEL/ohs on 2 L supplemental oxygen: Continue home inhalers and CPAP at bedtime #. Obesity: Counseled regarding diet and weight loss #. Congestive heart failure with reduced ejection fraction: Hold diuretics in the setting of FELICIA #. Essential hypertension: Continue home antihypertensives Med rec pending DVT prophylaxis: Lovenox Full code Admit as inpatient and will require two night minimum hospital stay for close monitoring of kidney function, evaluation of chest discomfort (as above), which is not possible in a lesser acute setting. Quality Stroke Does the patient have a stroke diagnosis?: No VTE Prior VTE?: No VTE Risk Level:: Medical - moderate - high VTE Device Contraindication: Treatment Not Indicated VTE Drug Contraindication: N/A - Med Ordered
[2023-09-21] MEDS: LORazepam 1 MG TABLET 2 MG PO (02:13)
[2023-09-21 02:17] LABS: Magnesium 2.6 mg/dL (1.6-2.6)
--- NOTE | 2023-09-21 03:30 | PC.NURSE ---
pt incontinent of urine, incontinent care provided. Barrier cream applied to buttocks, pt has two small pressure sore. Pt states she is aware and was going to wound care but the clinic closed.
[2023-09-21 03:45] VITALS: BP 140/61; PULSE 83; RESP 18; O2SAT 98
[2023-09-21] MEDS: Enoxaparin Sodium 40 MG/0.4 ML SYRINGE SUBCUT (03:52)
[2023-09-21] MEDS: Insulin Glargine,Hum.rec.anlog 100 UNIT/ML 10 ML VIAL 35 UNIT SUBCUT (03:53)
[2023-09-21] MEDS: cloNIDine HCL 0.1 MG TABLET PO (03:53)
[2023-09-21] MEDS: traZODone HCL 50 MG TABLET PO ×2 (03:53→19:54)
--- NOTE | 2023-09-21 04:10 | PC.RT ---
Pt refused CPAP
[2023-09-21 04:11] LABS: Appearance Urine Clear; Color Urine Yellow; Glucose Urine UA Negative (Negative); Leukocyte Esterase Urine Negative (Negative); Nitrite Urine Negative (Negative); PH 8.5 (5.0-9.0); Specific Gravity - Urine 1.015 (1.005-1.025); Urine Blood Negative (Negative); Urine Ketones Negative (Negative); Urine Protein Trace mg/dL (Neg-Trace)
[2023-09-21 04:14] LABS: Bacteria Urine None Seen (None Seen); Hyaline Casts Urine 0-2 /LPF (0-2); RBC Urine 0-2 /HPF (0-2); Squamous Epithelial Cell Urine 0-2 /HPF (0-2); WBC Urine 0-5 /HPF (0-5)
[2023-09-21 04:24] LABS: Creatinine Urine 62.39 mg/dL
[2023-09-21 05:02] LABS: Hematocrit 28.8 % (37.0-47.0); Hemoglobin 8.7 g/dl (12.0-16.0); Mean Corpuscular HGB Conc 30.2 g/dl (31.0-35.0); Mean Corpuscular Hemoglobin 26.5 pg (27.0-33.0); Mean Corpuscular Volume 87.8 fL (80.0-98.0); Mean Platelet Volume 8.3 fL (9.4-12.3); Platelet Count 165 X10*3/uL (160-400); Red Blood Count 3.28 X10*6/uL (4.20-5.50); Red Cell Distribution Width 15.5 % (11.0-16.0); White Blood Count 8.5 X10*3/uL (4.8-10.8)
[2023-09-21 05:16] LABS: Anion Gap 11 (12-20); Blood Urea Nitrogen 39 mg/dL (9-16); Calcium 8.2 mg/dL (8.4-10.2); Carbon Dioxide 31 mmol/L (22-29); Chloride 106 mmol/L (96-108); Creatinine Clr Calc Pharmacy 52.4; Estimated Glomerular Filt Rate 36; Glucose Random 68 mg/dL (60-115); Potassium 4.7 mmol/L (3.3-5.1); Sodium 143 mmol/L (135-145)
[2023-09-21 05:24] LABS: Troponin-I High Sensitivity 9.5 ng/L (<3.5-17.0)
[2023-09-21 07:41] LABS: Glucose, Whole Blood 58 mg/dL (60-115)
--- NOTE | 2023-09-21 07:48 | PC.NURSE ---
Alert and oriented, BS 58,provider aware stating as long as patient is asymptomatic to monitor and re check sugar, drank 2 oranges juice and ate breakfast. Repositioned in bed
[2023-09-21] MEDS: 0.9 % Sodium Chloride Flush 3 ML SYRINGE IVFLUSH ×2 (07:51→18:45)
--- NOTE | 2023-09-21 08:03 | PC.NURSE ---
brought by transport to [facility]
[2023-09-21 08:46] LABS: Glucose, Whole Blood 89 mg/dL (60-115)
[2023-09-21 09:44] VITALS: BP 140/64; PULSE 84; RESP 20; TEMP 37; O2SAT 94
[2023-09-21 10:13] LABS: Glucose, Whole Blood 84 mg/dL (60-115)
--- NOTE | 2023-09-21 10:27 | PC.NURSE ---
Open areas noted to right sacrum and left buttocks
[2023-09-21 11:14] LABS: Glucose, Whole Blood 74 mg/dL (60-115)
[2023-09-21] MEDS: busPIRone HCl 10 MG TABLET PO (11:49)
--- NOTE | 2023-09-21 12:21 | PHA.MEDREC ---
Pharmacy Consult ? Medication Reconciliation Pharmacy has completed the medication reconciliation. Spoke to patient and confirmed medication list. Patient is not sure which dose of duloxetine she is taking so 30 mg was entered per pharmacy claim. She confirmed that she takes 45 units of lantus twice a day and sliding scales for humalog.
--- NOTE | 2023-09-21 13:05 | P.EN_ITS ---
Event Note Date of Service: 09/21/23 Event Note: 63-year-old female with pertinent history of chronic hypoxemic respiratory failure due to COPD, DANIEL/OHS on 2 L supplemental oxygen, congestive heart failure with reduced ejection fraction, CKD stage 3, morbid obesity, insulin- dependent diabetes mellitus, mood disorder, essential hypertension who presents to the emergency department for chest discomfort and anxiety like symptoms. Patient denies chest pain, no shortness of breath, no palpitations complaining of worsening anxiety requesting for anxiolytics. On examination awake alert in no acute distress Lungs clear to auscultation Heart regular rate rhythm Abdomen benign Extremities no edema 63-year-old female with pertinent history of chronic hypoxemic respiratory failure due to COPD, DANIEL/OHS on 2 L supplemental oxygen, congestive heart failure with reduced ejection fraction, CKD stage 3, morbid obesity, insulin- dependent diabetes mellitus, mood disorder, essential hypertension who presents to the emergency department for chest discomfort and anxiety like symptoms. #. Acute kidney injury on CKD stage III: Status post IV fluid creatinine trending down, follow BMP, avoid nephrotoxins. #. Chest discomfort: Likely related to anxiety, Chest pain resolved, no recurrent symptoms, troponin negative, EKG showed no acute ischemic changes, history of ch. prolonged QT, D-dimer elevated, V/Q scan showed very low probability of pulmonary embolism. #. Generalized anxiety, uncontrolled: Continue home mood stabilizers, consulted Psychiatry. #. Insulin-dependent diabetes mellitus: Noted to have hypoglycemia blood sugar 58 this morning, continue insulin sliding scale and hold Lantus #. Chronic hypoxemic respiratory failure due to COPD, DANIEL/ohs on 2 L supplemental oxygen: Continue home inhalers and CPAP at bedtime. #. Morbid Obesity: Counseled regarding diet and weight loss #. Congestive heart failure with reduced ejection fraction: No acute exacerbation, Hold Bumex in the setting of FELICIA #. Essential hypertension: Continue home antihypertensives isosorbide, hydral azine, metoprolol, hold amlodipine and follow BP DVT prophylaxis: Lovenox Full code Patient need continued inpatient hospitalization for close monitoring of kidney function, evaluation of chest discomfort (as above), worsening anxiety, expert consultation, which is not possible in a lesser acute setting. Time Spent With Patient Time: Total time managing care of this patient today ____ minutes.
[2023-09-21] MEDS: Metoprolol Succinate ER 50 MG TAB.ER.24H PO (13:53)
[2023-09-21] MEDS: LORazepam 1 MG TABLET PO (13:57)
[2023-09-21] MEDS: busPIRone HCl 5 MG TABLET 15 MG PO (14:02)
[2023-09-21] MEDS: DULoxetine HCl 30 MG CAPSULE.DR PO (14:02)
[2023-09-21] MEDS: Gabapentin 400 MG CAPSULE PO (14:07)
--- NOTE | 2023-09-21 14:13 | PC.NURSE ---
Sobbing ad crying in room. Frequently calling out. States that she is extremely anxious. notified. Medicated with Ativan 1mg PO at 1357. Pt requesting someone sit with her in the room so she is not lonely and anxious.
[2023-09-21 15:03] VITALS: BP 132/72; PULSE 81; RESP 18; TEMP 36.6; O2SAT 95
--- NOTE | 2023-09-21 15:57 | PM.PSYCN ---
History of Present Illness Date of Service: 09/22/2023 Chief Complaint: Chest Pain Discussed with referring provider: Yes Sources of Information: patient interviewed, chart reviewed and crisis/core team assessment reviewed HPI Narrative: Ms. Mueller is a 63 year-old woman with admitted for chronic hypoxemic respiratory failure due to COPD. Pt has been presenting as anxious, reporting she is afraid to be on her own, tearful and dysregulated at times. Psychiatry consulted to manage mood. Mrs. Mueller has been seen by psychiatric services in the past. She was seen back in 2021 for anxiety which later she seemed to have some degree of psychosis. She was most recently seen on 08/2023 due to SI, at that time she declined to engage in interview and was described as irritable and labile. Today, pt seen in her room. Initially pt was on the phone with her daughter and appeared calm and collected. As soon as this screen writer introduce herself, pt presented as much more dysphoric, asking this screen writer please, please, help me! When about what was going on, pt reports she is very fearful. She reports she does not want to be alone. She reports at home she became very anxious due to being afraid that BS would be low. She reports she continues to be very fearful of being on her own here in the hospital and asks this screen writer if I can stay with her during the day. She reports she asked for a sitter to be with her but was told not. When asked what she is afraid of here in the hospital, she states I don't know. She denies SI/HI. She denies VH/AH. She does not appear internally preoccupied. [facility] Medical History Uncontrolled type 2 diabetes mellitus with hyperglycemia FELICIA (acute kidney injury) Abdominal pain Constipation Chronic respiratory failure with hypoxia Stercoral colitis Decubitus ulcer Hypoxia CHF exacerbation MDD (major depressive disorder), recurrent episode, moderate Adjustment disorder with mixed anxiety and depressed mood Panic disorder Cellulitis of right lower extremity Stasis dermatitis of both legs DANIEL (obstructive sleep apnea) Asthma Hyperglycemia due to diabetes mellitus COPD (chronic obstructive pulmonary disease) Congestive heart failure Obesity hypoventilation syndrome CKD (chronic kidney disease) stage 3, GFR 30-59 ml/min NICM (nonischemic cardiomyopathy) Acute on chronic combined systolic and diastolic CHF (congestive heart failure) Morbid obesity Diabetic neuropathy, painful Chronic pain High cholesterol Depression Hypertension Diabetes Surgical History (Updated 08/11/23 @ 10:54 by Sarah Sharif RN) History of surgery Hx of cholecystectomy Diagnostics Vital Signs (24Hr): Vital Signs - 24 hr 09/20/23 18:50 09/20/23 20:42 09/20/23 23:49 Temperature 98.7 F 98.1 F Pulse Rate 98 91 84 Respiratory Rate 18 20 18 Blood Pressure 142/49 H 136/49 L 122/61 Pulse Oximetry 97 99 97 Oxygen Delivery Method Nasal Cannula Nasal Cannula Nasal Cannula Oxygen Flow Rate 2 2 2 09/21/23 03:45 09/21/23 09:44 09/21/23 15:03 Temperature 98.6 F 97.9 F Pulse Rate 83 84 81 Respiratory Rate 18 20 18 Blood Pressure 140/61 H 140/64 H 132/72 Pulse Oximetry 98 94 95 Oxygen Delivery Method Nasal Cannula Nasal Cannula Nasal Cannula Oxygen Flow Rate 2 2 2 BMI result Body Mass Index 53.4 Labs 09/21/23 04:57 09/21/23 04:57 Labs: Laboratory Results - last 48 hr 09/20/23 09/21/23 09/21/23 21:36 00:25 00:53 WBC 8.7 RBC 3.51 L Hgb 9.2 L Hct 30.7 L MCV 87.5 MCH 26.2 L MCHC 30.0 L RDW 15.6 Plt Count 189 D MPV 9.3 L Immature Gran % (Auto) 0.3 Neut % (Auto) 73.4 H Lymph % (Auto) 14.8 L [place] % (Auto) 8.9 Eos % (Auto) 2.3 Baso % (Auto) 0.3 Lymph # (Auto) 1.3 [place] # (Auto) 0.8 Eos # (Auto) 0.2 Baso # (Auto) 0.0 Abs Immat Gran (auto) 0.03 Absolute Neuts (auto) 6.4 Absolute Nucleated RBC 0.000 Nucleated RBC % (auto) 0.0 PT 11.8 INR 1.0 APTT 30.3 D-Dimer High Sensitivty 307 Sodium 143 143 Potassium 5.0 4.6 Chloride 104 107 Carbon Dioxide 31 H 30 H Anion Gap 13 11 L BUN 43 H 41 H Creatinine 1.52 H 1.55 H Estim Creat Clear Calc 50.2 49.3 Estimated GFR 35 34 POC Glucose Random Glucose 147 H 82 Calcium 8.7 8.6 Magnesium 2.6 Total Bilirubin 0.2 0.3 AST 13 12 ALT 8 8 Alkaline Phosphatase 68 75 Troponin I High Sens 8.8 D 10.7 B-Natriuretic Peptide 100 Total Protein 7.0 7.2 Albumin 3.6 3.7 Urine Color Urine Appearance Urine pH Ur Specific [place] Urine Protein Urine Glucose (UA) Urine Ketones Urine Blood Urine Nitrite Ur Leukocyte Esterase Urine RBC Urine WBC Ur Squamous Epith Cells Urine Bacteria Hyaline Casts Urine Creatinine 09/21/23 09/21/23 09/21/23 04:02 04:57 07:35 WBC 8.5 RBC 3.28 L Hgb 8.7 L Hct 28.8 L MCV 87.8 MCH 26.5 L MCHC 30.2 L RDW 15.5 Plt Count 165 MPV 8.3 L Immature Gran % (Auto) Neut % (Auto) Lymph % (Auto) [place] % (Auto) Eos % (Auto) Baso % (Auto) Lymph # (Auto) [place] # (Auto) Eos # (Auto) Baso # (Auto) Abs Immat Gran (auto) Absolute Neuts (auto) Absolute Nucleated RBC 0.000 Nucleated RBC % (auto) 0.0 PT INR APTT D-Dimer High Sensitivty Sodium 143 Potassium 4.7 Chloride 106 Carbon Dioxide 31 H Anion Gap 11 L BUN 39 H Creatinine 1.46 H Estim Creat Clear Calc 52.4 Estimated GFR 36 POC Glucose 58 L* Random Glucose 68 Calcium 8.2 L Magnesium Total Bilirubin AST ALT Alkaline Phosphatase Troponin I High Sens 9.5 B-Natriuretic Peptide Total Protein Albumin Urine Color Yellow Urine Appearance Clear Urine pH 8.5 Ur Specific [place] 1.015 Urine Protein Trace Urine Glucose (UA) Negative Urine Ketones Negative Urine Blood Negative Urine Nitrite Negative Ur Leukocyte Esterase Negative Urine RBC 0-2 Urine WBC 0-5 Ur Squamous Epith Cells 0-2 Urine Bacteria None Seen Hyaline Casts 0-2 Urine Creatinine 62.39 09/21/23 09/21/23 09/21/23 08:42 10:08 11:08 WBC RBC Hgb Hct MCV MCH MCHC RDW Plt Count MPV Immature Gran % (Auto) Neut % (Auto) Lymph % (Auto) [place] % (Auto) Eos % (Auto) Baso % (Auto) Lymph # (Auto) [place] # (Auto) Eos # (Auto) Baso # (Auto) Abs Immat Gran (auto) Absolute Neuts (auto) Absolute Nucleated RBC Nucleated RBC % (auto) PT INR APTT D-Dimer High Sensitivty Sodium Potassium Chloride Carbon Dioxide Anion Gap BUN Creatinine Estim Creat Clear Calc Estimated GFR POC Glucose 89 84 74 Random Glucose Calcium Magnesium Total Bilirubin AST ALT Alkaline Phosphatase Troponin I High Sens B-Natriuretic Peptide Total Protein Albumin Urine Color Urine Appearance Urine pH Ur Specific [place] Urine Protein Urine Glucose (UA) Urine Ketones Urine Blood Urine Nitrite Ur Leukocyte Esterase Urine RBC Urine WBC Ur Squamous Epith Cells Urine Bacteria Hyaline Casts Urine Creatinine Imaging Radiology Impressions: ITS Impressions Chest X-Ray 09/20/23 21:06 IMPRESSION: Stable enlargement of the cardiac silhouette. Question pulmonary venous redistribution. Pulmonary Perfusion Imaging 09/21/23 08:40 IMPRESSION: Very low probability of pulmonary embolism. Cardiomegaly. Mental Status Exam Mental Status Exam Narrative: Appearance: wearing hospital gown, some degree of respiratory distress and hypoxia Behavior: cooperative Speech: sobbing at times, which made enunciation unclear, regular rate/rhythm/volume, spontaneous Psychomotor: no agitation or retardation noted TP: focused on needing to be with someone TC: feeling fearful and scared Mood: anxious Affect: dysphoric SI: denies HI: denies VH/AH: does not appear Delusions: some degree of unrealistic fear if left alone Insight/judgment: poor x 2. memory/cog: alert, oriented x 3. not formally tested. Medications Medications Current Medications Acetaminophen (Acetaminophen 325 Mg Tablet) 650 mg PO Q6H PRN PRN Reason: Pain, Mild (Pain Scale 1-3) Aspirin (Aspirin Enteric Coated 81 Mg Tablet.) 81 mg PO DAILY [facility] Atorvastatin Calcium (Atorvastatin Calcium 10 Mg Tablet) 10 mg PO BEDTIME [facility] Clonazepam (Clonazepam 0.5 Mg Tablet) 0.5 mg PO BID [facility] Clonidine HCl (Clonidine Hcl 0.1 Mg Tablet) 0.1 mg PO TID PRN; Protocol PRN Reason: hyperarousal, anxiety, panic Dextrose (Dextrose 50 % 25 Gm/50 Ml Syringe) 25 gm IVPUSH Q15M PRN; Protocol PRN Reason: per Hypoglycemia Standing Ord. Duloxetine HCl (Duloxetine Hcl 30 Mg Capsule.) 30 mg PO DAILY@0900 [facility] Last Admin: 09/21/23 14:02 Dose: 30 mg Enoxaparin Sodium (Enoxaparin Sodium 40 Mg/0.4 Ml Syringe) 40 mg SUBCUT DAILY [facility] Last Admin: 09/21/23 03:52 Dose: 40 mg Fluticasone Propionate (Fluticasone Propionate 100 Mcg Blst.W.Dev) 2 puff INHALE RBID [facility] Gabapentin (Gabapentin 400 Mg Capsule) 400 mg PO BID@0900,1500 [facility] Last Admin: 09/21/23 14:07 Dose: 400 mg Glucose (Glucose Gel 15 Gm Gel..Gram.) 15 gm PO Q15M PRN; Protocol PRN Reason: per Hypoglycemia Standing Ord. Hydralazine HCl (Hydralazine Hcl 25 Mg Tablet) 25 mg PO BID [facility]; Protocol Insulin Human Lispro (Insulin Lispro 100 Unit/Ml 3 Ml Vial) 0 unit SUBCUT QIDACHS [facility]; Protocol Last Admin: 09/21/23 11:44 Dose: Not Given Isosorbide Mononitrate (Isosorbide Mononitrate 30 Mg Tab.Er.24h) 30 mg PO DAILY [facility]; Protocol Meclizine HCl (Meclizine Hcl 25 Mg Tablet) 25 mg PO TID PRN PRN Reason: Vertigo Melatonin (Melatonin 3 Mg Tablet) 6 mg PO BEDTIME PRN PRN Reason: Insomnia Metoprolol Succinate (Metoprolol Succinate Er 50 Mg Tab.Er.24h) 50 mg PO DAILY [facility]; Protocol Last Admin: 09/21/23 13:53 Dose: 50 mg Ondansetron HCl (Ondansetron Hcl 4 Mg/2 Ml Vial) 4 mg IVPUSH Q8H PRN PRN Reason: Nausea and Vomiting Prazosin HCl (Prazosin Hcl 1 Mg Capsule) 1 mg PO BEDTIME [facility]; Protocol Quetiapine Fumarate (Quetiapine Fumarate 50 Mg Tablet) 50 mg PO BID [facility] Risperidone (Risperidone 0.5 Mg Tablet) 0.5 mg PO BID [facility] Sodium Chloride (0.9 % Sodium Chloride Flush 3 Ml Syringe) 3 ml IVFLUSH QSHIFT [facility] Last Admin: 09/21/23 07:51 Dose: 3 ml Trazodone HCl (Trazodone Hcl 50 Mg Tablet) 50 mg PO BEDTIME [facility] Allergies Allergies Allergy/AdvReac Type Severity Reaction Status Date / Time ibuprofen Allergy Intermediate vomiting, Verified 08/11/23 11:00 itching acetaminophen [Tylenol] Allergy Unknown Unknown Verified 08/11/23 11:00 codeine AdvReac Severe Anaphylaxis Verified 08/11/23 11:00 morphine AdvReac Intermediate vomiting Verified 05/15/23 20:51 vancomycin AdvReac Intermediate Itching Verified 05/15/23 20:51 Assessment & Plan Assessment & Plan (1) Mood disorder: Status: Acute Code(s): F39 - Unspecified mood [affective] disorder Plan Mrs. Mueller is a 63 year-old woman admitted for chronic hypoxemic respiratory failure due to COPD. She has been seen by psychiatry back in 2021 and most recently 08/2023 for combination of anxiety, question of psychosis. She was referred again due to anxiety. She currently presents as dysphoric, more than anxious appears fearful, but this quickly change when I entered the room when she initially presented as calm and on the phone with daughter. Her fear to be alone does seem to border in delusional realm. We discussed risks, benefits and alternative treatment. PLAN 1. replace ativan for clonazepam 0.5mg po BID- monitor respiratory suppression. 2. I was considering switching risperidone to seroquel--> however, her QTc is slightly prolonged, will recheck EKG and reassess. 3. otherwise may consider mood stabilizer for dysphoric mood. 4. d/c buspar as probably not providing much therapeutic benefit. 5. will reassess pt tomorrow 3/5 Total time managing care of this patient today ____ minutes.
[2023-09-21 16:38] LABS: Glucose, Whole Blood 62 mg/dL (60-115)
[2023-09-21 19:29] VITALS: BP 101/60; PULSE 73; RESP 16; TEMP 36.2; O2SAT 96
--- NOTE | 2023-09-21 19:52 | PC.RT ---
Pt refusing CPAP at this time; states she does not use one at home
[2023-09-21] MEDS: hydrALAZINE HCl 25 MG TABLET PO (19:54)
[2023-09-21] MEDS: risperiDONE 0.5 MG TABLET PO (19:54)
[2023-09-21] MEDS: clonazePAM 0.5 MG TABLET PO (19:54)
[2023-09-21] MEDS: Atorvastatin Calcium 10 MG TABLET PO (19:54)
[2023-09-21 19:55] VITALS: BP 135/59; PULSE 79
[2023-09-21 20:39] LABS: Glucose, Whole Blood 115 mg/dL (60-115)
[2023-09-22] MEDS: 0.9 % Sodium Chloride Flush 3 ML SYRINGE IVFLUSH ×4 (00:05→20:43)
[2023-09-22 04:00] VITALS: BP 121/58; PULSE 78; RESP 16; TEMP 36.2; O2SAT 96
[2023-09-22 07:25] LABS: Glucose, Whole Blood 59 mg/dL (60-115)
[2023-09-22 07:27] VITALS: BP 132/60; PULSE 77; RESP 17; TEMP 36.2; O2SAT 96
[2023-09-22 07:53] LABS: Glucose, Whole Blood 77 mg/dL (60-115)
[2023-09-22 08:29] VITALS: PULSE 71; RESP 15; O2SAT 96
[2023-09-22] MEDS: Fluticasone Propionate 100 MCG BLST.W.DEV 2 PUFF INHALE ×2 (08:29→19:46)
[2023-09-22] MEDS: Metoprolol Succinate ER 50 MG TAB.ER.24H PO (09:05)
[2023-09-22] MEDS: hydrALAZINE HCl 25 MG TABLET PO ×2 (09:05→20:42)
[2023-09-22] MEDS: Isosorbide Mononitrate 30 MG TAB.ER.24H PO (09:05)
[2023-09-22] MEDS: Enoxaparin Sodium 40 MG/0.4 ML SYRINGE SUBCUT (09:05)
[2023-09-22] MEDS: Gabapentin 400 MG CAPSULE PO ×2 (09:05→14:17)
[2023-09-22] MEDS: clonazePAM 0.5 MG TABLET PO ×2 (09:05→20:43)
[2023-09-22] MEDS: Aspirin Enteric Coated 81 MG TABLET.DR PO (09:05)
[2023-09-22] MEDS: risperiDONE 0.5 MG TABLET PO ×2 (09:05→20:43)
[2023-09-22] MEDS: DULoxetine HCl 30 MG CAPSULE.DR PO (09:05)
[2023-09-22 10:53] VITALS: BMI 53.4
--- NOTE | 2023-09-22 10:57 | MHC.CLN ---
PT WITH INCREASED NUTRITION RISK R/T PRESSURE INJURY PO 100% X 1 MEAL DIET RX: CARDIAC-RECOMMEND 1800DM DIET CARDIAC RECOMMEND ADDING ENSURE MAX BID TO PROMOTE WOUND HEALING SUPP TO PROVIDE 300KCALS, 60G PROTEIN WITH 100% ACCEPTANCE MONITOR PO INTAKE AND ENCOURAGE SUPPLEMENTS SEE ALSO FULL CLINICAL NUTRITION ASSESSMENT
[2023-09-22 11:29] LABS: Glucose, Whole Blood 128 mg/dL (60-115)
--- NOTE | 2023-09-22 12:02 | PM.PSYCN ---
History of Present Illness Date of Service: 09/22/2023 Chief Complaint: Chest Pain Sources of Information: patient interviewed, chart reviewed and crisis/core team assessment reviewed HPI Narrative: Interim Hx: pt seen again today. She is in bed. She appears calmer, but also more somnolent. She did open her eyes, but preferred to go back to sleep. Per nursing, pt has been calmer today. She has also been napping more. Review of Systems Review of Systems anxiety attack Yes all other systems are reviewed and are negative Constitutional: Reports no additional constitutional complaints Cardiovascular: Reports chest pain Respiratory: Reports no additional respiratory complaints Gastrointestinal: Reports no additional gastrointestinal complaints Psychiatric: Reports anxiety [facility] Medical History Uncontrolled type 2 diabetes mellitus with hyperglycemia FELICIA (acute kidney injury) Abdominal pain Constipation Chronic respiratory failure with hypoxia Stercoral colitis Decubitus ulcer Hypoxia CHF exacerbation MDD (major depressive disorder), recurrent episode, moderate Adjustment disorder with mixed anxiety and depressed mood Panic disorder Cellulitis of right lower extremity Stasis dermatitis of both legs DANIEL (obstructive sleep apnea) Asthma Hyperglycemia due to diabetes mellitus COPD (chronic obstructive pulmonary disease) Congestive heart failure Obesity hypoventilation syndrome CKD (chronic kidney disease) stage 3, GFR 30-59 ml/min NICM (nonischemic cardiomyopathy) Acute on chronic combined systolic and diastolic CHF (congestive heart failure) Morbid obesity Diabetic neuropathy, painful Chronic pain High cholesterol Depression Hypertension Diabetes Surgical History (Updated 08/11/23 @ 10:54 by Sarah Sharif RN) History of surgery Hx of cholecystectomy Diagnostics Vital Signs (24Hr): Vital Signs - 24 hr 09/21/23 15:03 09/21/23 19:29 09/21/23 19:55 Temperature 97.9 F 97.1 F Pulse Rate 81 73 79 Respiratory Rate 18 16 Blood Pressure 132/72 101/60 135/59 L Pulse Oximetry 95 96 Oxygen Delivery Method Nasal Cannula Nasal Cannula Oxygen Flow Rate 2 2 09/22/23 04:00 09/22/23 07:27 09/22/23 08:29 Temperature 97.2 F 97.1 F Pulse Rate 78 77 71 Respiratory Rate 16 17 15 Blood Pressure 121/58 L 132/60 Pulse Oximetry 96 96 Oxygen Delivery Method Nasal Cannula Nasal Cannula Oxygen Flow Rate 2 2.0 BMI result Body Mass Index 53.4 Labs 09/21/23 04:57 09/21/23 04:57 Labs: Laboratory Results - last 48 hr 09/20/23 09/21/23 09/21/23 21:36 00:25 00:53 WBC 8.7 RBC 3.51 L Hgb 9.2 L Hct 30.7 L MCV 87.5 MCH 26.2 L MCHC 30.0 L RDW 15.6 Plt Count 189 D MPV 9.3 L Immature Gran % (Auto) 0.3 Neut % (Auto) 73.4 H Lymph % (Auto) 14.8 L Catron % (Auto) 8.9 Eos % (Auto) 2.3 Baso % (Auto) 0.3 Lymph # (Auto) 1.3 Catron # (Auto) 0.8 Eos # (Auto) 0.2 Baso # (Auto) 0.0 Abs Immat Gran (auto) 0.03 Absolute Neuts (auto) 6.4 Absolute Nucleated RBC 0.000 Nucleated RBC % (auto) 0.0 PT 11.8 INR 1.0 APTT 30.3 D-Dimer High Sensitivty 307 Sodium 143 143 Potassium 5.0 4.6 Chloride 104 107 Carbon Dioxide 31 H 30 H Anion Gap 13 11 L BUN 43 H 41 H Creatinine 1.52 H 1.55 H Estim Creat Clear Calc 50.2 49.3 Estimated GFR 35 34 POC Glucose Random Glucose 147 H 82 Calcium 8.7 8.6 Magnesium 2.6 Total Bilirubin 0.2 0.3 AST 13 12 ALT 8 8 Alkaline Phosphatase 68 75 Troponin I High Sens 8.8 D 10.7 B-Natriuretic Peptide 100 Total Protein 7.0 7.2 Albumin 3.6 3.7 Urine Color Urine Appearance Urine pH Ur Specific [place] Urine Protein Urine Glucose (UA) Urine Ketones Urine Blood Urine Nitrite Ur Leukocyte Esterase Urine RBC Urine WBC Ur Squamous Epith Cells Urine Bacteria Hyaline Casts Urine Creatinine 09/21/23 09/21/23 09/21/23 04:02 04:57 07:35 WBC 8.5 RBC 3.28 L Hgb 8.7 L Hct 28.8 L MCV 87.8 MCH 26.5 L MCHC 30.2 L RDW 15.5 Plt Count 165 MPV 8.3 L Immature Gran % (Auto) Neut % (Auto) Lymph % (Auto) Catron % (Auto) Eos % (Auto) Baso % (Auto) Lymph # (Auto) Catron # (Auto) Eos # (Auto) Baso # (Auto) Abs Immat Gran (auto) Absolute Neuts (auto) Absolute Nucleated RBC 0.000 Nucleated RBC % (auto) 0.0 PT INR APTT D-Dimer High Sensitivty Sodium 143 Potassium 4.7 Chloride 106 Carbon Dioxide 31 H Anion Gap 11 L BUN 39 H Creatinine 1.46 H Estim Creat Clear Calc 52.4 Estimated GFR 36 POC Glucose 58 L* Random Glucose 68 Calcium 8.2 L Magnesium Total Bilirubin AST ALT Alkaline Phosphatase Troponin I High Sens 9.5 B-Natriuretic Peptide Total Protein Albumin Urine Color Yellow Urine Appearance Clear Urine pH 8.5 Ur Specific [place] 1.015 Urine Protein Trace Urine Glucose (UA) Negative Urine Ketones Negative Urine Blood Negative Urine Nitrite Negative Ur Leukocyte Esterase Negative Urine RBC 0-2 Urine WBC 0-5 Ur Squamous Epith Cells 0-2 Urine Bacteria None Seen Hyaline Casts 0-2 Urine Creatinine 62.39 09/21/23 09/21/23 09/21/23 08:42 10:08 11:08 WBC RBC Hgb Hct MCV MCH MCHC RDW Plt Count MPV Immature Gran % (Auto) Neut % (Auto) Lymph % (Auto) Catron % (Auto) Eos % (Auto) Baso % (Auto) Lymph # (Auto) Catron # (Auto) Eos # (Auto) Baso # (Auto) Abs Immat Gran (auto) Absolute Neuts (auto) Absolute Nucleated RBC Nucleated RBC % (auto) PT INR APTT D-Dimer High Sensitivty Sodium Potassium Chloride Carbon Dioxide Anion Gap BUN Creatinine Estim Creat Clear Calc Estimated GFR POC Glucose 89 84 74 Random Glucose Calcium Magnesium Total Bilirubin AST ALT Alkaline Phosphatase Troponin I High Sens B-Natriuretic Peptide Total Protein Albumin Urine Color Urine Appearance Urine pH Ur Specific [place] Urine Protein Urine Glucose (UA) Urine Ketones Urine Blood Urine Nitrite Ur Leukocyte Esterase Urine RBC Urine WBC Ur Squamous Epith Cells Urine Bacteria Hyaline Casts Urine Creatinine 09/21/23 09/21/23 09/22/23 16:35 20:28 07:21 WBC RBC Hgb Hct MCV MCH MCHC RDW Plt Count MPV Immature Gran % (Auto) Neut % (Auto) Lymph % (Auto) Catron % (Auto) Eos % (Auto) Baso % (Auto) Lymph # (Auto) Catron # (Auto) Eos # (Auto) Baso # (Auto) Abs Immat Gran (auto) Absolute Neuts (auto) Absolute Nucleated RBC Nucleated RBC % (auto) PT INR APTT D-Dimer High Sensitivty Sodium Potassium Chloride Carbon Dioxide Anion Gap BUN Creatinine Estim Creat Clear Calc Estimated GFR POC Glucose 62 115 59 L* Random Glucose Calcium Magnesium Total Bilirubin AST ALT Alkaline Phosphatase Troponin I High Sens B-Natriuretic Peptide Total Protein Albumin Urine Color Urine Appearance Urine pH Ur Specific [place] Urine Protein Urine Glucose (UA) Urine Ketones Urine Blood Urine Nitrite Ur Leukocyte Esterase Urine RBC Urine WBC Ur Squamous Epith Cells Urine Bacteria Hyaline Casts Urine Creatinine 09/22/23 09/22/23 07:50 11:24 WBC RBC Hgb Hct MCV MCH MCHC RDW Plt Count MPV Immature Gran % (Auto) Neut % (Auto) Lymph % (Auto) Catron % (Auto) Eos % (Auto) Baso % (Auto) Lymph # (Auto) Catron # (Auto) Eos # (Auto) Baso # (Auto) Abs Immat Gran (auto) Absolute Neuts (auto) Absolute Nucleated RBC Nucleated RBC % (auto) PT INR APTT D-Dimer High Sensitivty Sodium Potassium Chloride Carbon Dioxide Anion Gap BUN Creatinine Estim Creat Clear Calc Estimated GFR POC Glucose 77 128 H Random Glucose Calcium Magnesium Total Bilirubin AST ALT Alkaline Phosphatase Troponin I High Sens B-Natriuretic Peptide Total Protein Albumin Urine Color Urine Appearance Urine pH Ur Specific [place] Urine Protein Urine Glucose (UA) Urine Ketones Urine Blood Urine Nitrite Ur Leukocyte Esterase Urine RBC Urine WBC Ur Squamous Epith Cells Urine Bacteria Hyaline Casts Urine Creatinine Imaging Radiology Impressions: ITS Impressions Chest X-Ray 09/20/23 21:06 IMPRESSION: Stable enlargement of the cardiac silhouette. Question pulmonary venous redistribution. Pulmonary Perfusion Imaging 09/21/23 08:40 IMPRESSION: Very low probability of pulmonary embolism. Cardiomegaly. Mental Status Exam Mental Status Exam Narrative: pt lying in bed, somnolent. She did wake up briefly but seem to have some difficulty keeping her eyes open. Medications Medications Current Medications Acetaminophen (Acetaminophen 325 Mg Tablet) 650 mg PO Q6H PRN PRN Reason: Pain, Mild (Pain Scale 1-3) Aspirin (Aspirin Enteric Coated 81 Mg Tablet.) 81 mg PO DAILY [facility] Last Admin: 09/22/23 09:05 Dose: 81 mg Atorvastatin Calcium (Atorvastatin Calcium 10 Mg Tablet) 10 mg PO BEDTIME [facility] Last Admin: 09/21/23 19:54 Dose: 10 mg Clonazepam (Clonazepam 0.5 Mg Tablet) 0.5 mg PO BID [facility] Last Admin: 09/22/23 09:05 Dose: 0.5 mg Clonidine HCl (Clonidine Hcl 0.1 Mg Tablet) 0.1 mg PO TID PRN; Protocol PRN Reason: hyperarousal, anxiety, panic Dextrose (Dextrose 50 % 25 Gm/50 Ml Syringe) 25 gm IVPUSH Q15M PRN; Protocol PRN Reason: per Hypoglycemia Standing Ord. Duloxetine HCl (Duloxetine Hcl 30 Mg Capsule.Dr) 30 mg PO DAILY@0900 [facility] Last Admin: 09/22/23 09:05 Dose: 30 mg Enoxaparin Sodium (Enoxaparin Sodium 40 Mg/0.4 Ml Syringe) 40 mg SUBCUT DAILY [facility] Last Admin: 09/22/23 09:05 Dose: 40 mg Fluticasone Propionate (Fluticasone Propionate 100 Mcg Blst.W.Dev) 2 puff INHALE RBID [facility] Last Admin: 09/22/23 08:29 Dose: 2 puff Gabapentin (Gabapentin 400 Mg Capsule) 400 mg PO BID@0900,1500 [facility] Last Admin: 09/22/23 09:05 Dose: 400 mg Glucose (Glucose Gel 15 Gm Gel..Gram.) 15 gm PO Q15M PRN; Protocol PRN Reason: per Hypoglycemia Standing Ord. Hydralazine HCl (Hydralazine Hcl 25 Mg Tablet) 25 mg PO BID [facility]; Protocol Last Admin: 09/22/23 09:05 Dose: 25 mg Insulin Human Lispro (Insulin Lispro 100 Unit/Ml 3 Ml Vial) 0 unit SUBCUT QIDACHS [facility]; Protocol Last Admin: 09/22/23 11:44 Dose: Not Given Isosorbide Mononitrate (Isosorbide Mononitrate 30 Mg Tab.Er.24h) 30 mg PO DAILY [facility]; Protocol Last Admin: 09/22/23 09:05 Dose: 30 mg Meclizine HCl (Meclizine Hcl 25 Mg Tablet) 25 mg PO TID PRN PRN Reason: Vertigo Melatonin (Melatonin 3 Mg Tablet) 6 mg PO BEDTIME PRN PRN Reason: Insomnia Metoprolol Succinate (Metoprolol Succinate Er 50 Mg Tab.Er.24h) 50 mg PO DAILY [facility]; Protocol Last Admin: 09/22/23 09:05 Dose: 50 mg Ondansetron HCl (Ondansetron Hcl 4 Mg/2 Ml Vial) 4 mg IVPUSH Q8H PRN PRN Reason: Nausea and Vomiting Risperidone (Risperidone 0.5 Mg Tablet) 0.5 mg PO BID [facility] Last Admin: 09/22/23 09:05 Dose: 0.5 mg Sodium Chloride (0.9 % Sodium Chloride Flush 3 Ml Syringe) 3 ml IVFLUSH QSHIFT [facility] Last Admin: 09/22/23 07:29 Dose: 3 ml Trazodone HCl (Trazodone Hcl 50 Mg Tablet) 50 mg PO BEDTIME [facility] Last Admin: 09/21/23 19:54 Dose: 50 mg Allergies Allergies Allergy/AdvReac Type Severity Reaction Status Date / Time ibuprofen Allergy Intermediate vomiting, Verified 08/11/23 11:00 itching acetaminophen [Tylenol] Allergy Unknown Unknown Verified 08/11/23 11:00 codeine AdvReac Severe Anaphylaxis Verified 08/11/23 11:00 morphine AdvReac Intermediate vomiting Verified 05/15/23 20:51 vancomycin AdvReac Intermediate Itching Verified 05/15/23 20:51 Assessment & Plan Assessment & Plan (1) Mood disorder: Status: Acute Code(s): F39 - Unspecified mood [affective] disorder Plan Mrs. Mueller is a 63 year-old woman admitted for chronic hypoxemic respiratory failure due to COPD. She has been seen by psychiatry back in 2021 and most recently 08/2023 for combination of anxiety, question of psychosis. She was referred again due to anxiety. She currently presents as dysphoric, more than anxious appears fearful, but this quickly change when I entered the room when she initially presented as calm and on the phone with daughter. Her fear to be alone does seem to border in delusional realm. We discussed risks, benefits and alternative treatment. PLAN 3/5 pt appears more somnolent today, although calmer. WIll hold on adding any medication given sedation. continue to monitor oversedation with low dose clonazepam. 02sats with nasal cannula stable. Discussed with Dr. Mccallum OT referral for [facility]. Will see pt again tomorrow for f/u. pending collateral information from daughter. Total time managing care of this patient today ____ minutes.
[2023-09-22] MEDS: cloNIDine HCL 0.1 MG TABLET PO ×2 (14:18→22:54)
--- NOTE | 2023-09-22 14:30 | MHC.CM.PN ---
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
[2023-09-22 14:58] VITALS: BP 110/53; PULSE 79; RESP 18; TEMP 36.3; O2SAT 98
--- NOTE | 2023-09-22 15:35 | P.PNIM_ITS ---
Subjective Subjective Date of Service: 09/22/23 Interval History: Resting comfortably sleepy but answering questions appropriately, requesting to take away her anxiety, lives alone and her niece visits daily to administer medications, denies headache, no dizziness, no chest pain, no palpitation, complaining of persistent anxiety no change from medication adjustment. Review of Systems All other system reviewed and negative. Physical Exam 2 Vital Signs: Vital Signs: Last Vital Signs Temp 97.4 F 09/22/23 14:58 Pulse 79 09/22/23 14:58 Resp 18 09/22/23 14:58 BP 110/53 L 09/22/23 14:58 Pulse Ox 98 09/22/23 14:58 O2 Del Method Nasal Cannula 09/22/23 14:58 O2 Flow Rate 2.0 09/22/23 14:58 BMI result Body Mass Index 53.4 Const: Other: General somnolent, easily arousable, in no acute distress.? Neck no JVD. CVS? regular rate rhythm, Respiratory lungs clear to auscultation, no respiratory distress, no wheeze, no rhonchi. Gastrointestinal abdomen soft, obese, nonntender, bowel sounds audible, no guarding , no rigidity. Extremities no edema Neuro non focal Skin no rash Objective Data Active Medications Acetaminophen (Acetaminophen 325 Mg Tablet) 650 mg PO Q6H PRN PRN Reason: Pain, Mild (Pain Scale 1-3) Aspirin (Aspirin Enteric Coated 81 Mg Tablet.) 81 mg PO DAILY [facility] Last Admin: 09/22/23 09:05 Dose: 81 mg Documented By: INEZ Atorvastatin Calcium (Atorvastatin Calcium 10 Mg Tablet) 10 mg PO BEDTIME [facility] Last Admin: 09/21/23 19:54 Dose: 10 mg Documented By: REGINALDO Clonazepam (Clonazepam 0.5 Mg Tablet) 0.5 mg PO BID [facility] Last Admin: 09/22/23 09:05 Dose: 0.5 mg Documented By: INEZ Clonidine HCl (Clonidine Hcl 0.1 Mg Tablet) 0.1 mg PO TID PRN; Protocol PRN Reason: hyperarousal, anxiety, panic Last Admin: 09/22/23 14:18 Dose: 0.1 mg Documented By: INEZ Dextrose (Dextrose 50 % 25 Gm/50 Ml Syringe) 25 gm IVPUSH Q15M PRN; Protocol PRN Reason: per Hypoglycemia Standing Ord. Duloxetine HCl (Duloxetine Hcl 30 Mg Capsule.Dr) 30 mg PO DAILY@0900 [facility] Last Admin: 09/22/23 09:05 Dose: 30 mg Documented By: INEZ Enoxaparin Sodium (Enoxaparin Sodium 40 Mg/0.4 Ml Syringe) 40 mg SUBCUT DAILY [facility] Last Admin: 09/22/23 09:05 Dose: 40 mg Documented By: INEZ Fluticasone Propionate (Fluticasone Propionate 100 Mcg Blst.W.Dev) 2 puff INHALE RBID [facility] Last Admin: 09/22/23 08:29 Dose: 2 puff Documented By: DANIELA Gabapentin (Gabapentin 400 Mg Capsule) 400 mg PO BID@0900,1500 [facility] Last Admin: 09/22/23 14:17 Dose: 400 mg Documented By: INEZ Glucose (Glucose Gel 15 Gm Gel..Gram.) 15 gm PO Q15M PRN; Protocol PRN Reason: per Hypoglycemia Standing Ord. Hydralazine HCl (Hydralazine Hcl 25 Mg Tablet) 25 mg PO BID [facility]; Protocol Last Admin: 09/22/23 09:05 Dose: 25 mg Documented By: INEZ Insulin Human Lispro (Insulin Lispro 100 Unit/Ml 3 Ml Vial) 0 unit SUBCUT QIDACHS [facility]; Protocol Isosorbide Mononitrate (Isosorbide Mononitrate 30 Mg Tab.Er.24h) 30 mg PO DAILY [facility]; Protocol Last Admin: 09/22/23 09:05 Dose: 30 mg Documented By: INEZ Meclizine HCl (Meclizine Hcl 25 Mg Tablet) 25 mg PO TID PRN PRN Reason: Vertigo Melatonin (Melatonin 3 Mg Tablet) 6 mg PO BEDTIME PRN PRN Reason: Insomnia Metoprolol Succinate (Metoprolol Succinate Er 50 Mg Tab.Er.24h) 50 mg PO DAILY [facility]; Protocol Last Admin: 09/22/23 09:05 Dose: 50 mg Documented By: INEZ Ondansetron HCl (Ondansetron Hcl 4 Mg/2 Ml Vial) 4 mg IVPUSH Q8H PRN PRN Reason: Nausea and Vomiting Risperidone (Risperidone 0.5 Mg Tablet) 0.5 mg PO BID [facility] Last Admin: 09/22/23 09:05 Dose: 0.5 mg Documented By: INEZ Sodium Chloride (0.9 % Sodium Chloride Flush 3 Ml Syringe) 3 ml IVFLUSH QSHIFT [facility] Last Admin: 09/22/23 14:18 Dose: 3 ml Documented By: INEZ Trazodone HCl (Trazodone Hcl 50 Mg Tablet) 50 mg PO BEDTIME [facility] Last Admin: 09/21/23 19:54 Dose: 50 mg Documented By: REGINALDO Labs 09/21/23 04:57 09/21/23 04:57 Labs: Laboratory Results - last 24 hr 09/21/23 09/21/23 09/22/23 16:35 20:28 07:21 POC Glucose 62 115 59 L* 09/22/23 09/22/23 07:50 11:24 POC Glucose 77 128 H Assessment and Plan (1) Mood disorder: Status: Acute (2) Chest pain: Status: Acute (3) FELICIA (acute kidney injury): Status: Acute Plan 63-year-old female with pertinent history of chronic hypoxemic respiratory failure due to COPD, DANIEL/OHS on 2 L supplemental oxygen, congestive heart failure with reduced ejection fraction, CKD stage 3, morbid obesity, insulin- dependent diabetes mellitus, mood disorder, essential hypertension who presents to the emergency department for chest discomfort and anxiety like symptoms. #. Acute kidney injury on CKD stage III: Status post IV fluid creatinine improved close to baseline, avoid nephrotoxins. #. Chest discomfort: Likely related to anxiety, Chest pain resolved, no recurrent symptoms, troponin negative, EKG showed no acute ischemic changes, history of ch. prolonged QT, D-dimer elevated, V/Q scan showed very low probability of pulmonary embolism. #. Generalized anxiety, uncontrolled: Being followed by Psychiatry patient placed on Klonopin twice daily, BuSpar discontinued patient appears somnolent, psych recommend OT consult for [place] #. Insulin-dependent diabetes mellitus: Stable blood sugars, no recurrent episode of hypoglycemia continue insulin sliding scale and hold Lantus #. Chronic hypoxemic respiratory failure due to COPD, DANIEL/ohs on 2 L supplemental oxygen: Continue home inhalers and CPAP at bedtime. #. Morbid Obesity: Counseled regarding diet and weight loss. #. Congestive heart failure with reduced ejection fraction: No acute exacerbation, Hold Bumex in the setting of FELICIA #. Essential hypertension: Stable BP Continue home antihypertensives isosorbide, hydralazine, metoprolol, continued to hold amlodipine and follow BP DVT prophylaxis: Lovenox Full code Patient need continued inpatient hospitalization for close monitoring of kidney function, worsening anxiety, expert consultation, which is not possible in a lesser acute setting. Quality Stroke Does the patient have a stroke diagnosis?: No VTE Prior VTE?: No VTE Risk Level:: Medical - moderate - high VTE Device Contraindication: Treatment Not Indicated VTE Drug Contraindication: N/A - Med Ordered
--- NOTE | 2023-09-22 15:49 | HO.WOUND ---
Wound Consult: Initial 63yr old F? admitted to [facility] on 09/21/23 - See progress notes and H&P for detailed history.? Wound consult placed for Sacrum and Coccyx Wound assessment POA.? Patient agreeable to assessment and photo documentation.? Chart review reveals patient has followed with outpatient wound clinic in the past for the buttock wound however she reports the wounds healed and has not been back in some time. Patient is noted to have mixed incontinence - incontinence care provided. Purewick in place per direct care team working well. Left Buttock Etiology: ?Stage 3 Pressure Injury - ?Present on Admission Measurements: see charting for detailed measurements Wound Bed: red clean wound bed - full thickness tissue loss Drainage / Odor: small amount of serosang Edges: ? macerated and defined [place] wound: ? MASD Dark red purple blanchable intact tissue - No Induration, Fluctuance or Warmth noted Pain: pt reported discomfort Goals of Treatment: ? Triad to provide moist wound healing environment and protect from moisture and friciton Right Buttock Etiology: ?Stage 2 Pressure Injury - ?Present on Admission Measurements: see charting for detailed measurements Wound Bed: red clean wound bed - partial thickness tissue loss Drainage / Odor: small amount of serosang Edges: ? macerated and defined [place] wound: ? MASD Dark red purple blanchable intact tissue - No Induration, Fluctuance or Warmth noted Pain: pt reported discomfort Goals of Treatment: ? Triad to provide moist wound healing environment and protect from moisture and friciton Of note the patients sacrum is intact and blanchable noted for MASD Dark red purple tissue - however there is scar tissue observed and evidence of previous injury. Recommendations: 1. Turn and Reposition every 2 hours and as needed for patient comfort.? Use pillows or wedges to support off loading positions. 2. Off Load all bony prominences with use of pillows and heel boots if needed.? Apply Preventative foams where needed. ? 3. Monitor for incontinence and moisture control, use barrier creams when needed for prevention and treatment. 4. Provide adequate and supplemental nutrition.? 5. Order or Continue low air loss mattress. 6. When applicable maintain blood glucose levels per Providers order. 7. Bilateral Buttock and Sacrum - Off Load Pressure - Cleanse with PH balance spray or wipes, pat dry. ?Apply thin layer of Triad to wound bed. Do not remove all of paste between applications as this may cause further skin damage.? Cover with foam dressing to aid in off loading and protection from friction. Re-consult wound care Nurse for wound deterioration or wound changes.
[2023-09-22 16:11] LABS: Glucose, Whole Blood 207 mg/dL (60-115)
[2023-09-22] MEDS: Insulin Lispro 100 UNIT/ML 3 ML VIAL SUBCUT ×2 (17:05→20:42)
[2023-09-22 17:08] LABS: Urea, Random Urine 644 mg/dL
--- NOTE | 2023-09-22 18:06 | PC.NURSE ---
Pt OOB to recliner. Took a few steps with the walker. Cries and yells aloud intermittently. Encouraged to use call lopez for help from staff. @ BM today. Tolersting diet. Wound nurse in to evaluate wound on coccyx.
[2023-09-22 19:49] VITALS: PULSE 80; RESP 18; O2SAT 96
[2023-09-22 19:55] VITALS: BP 145/63; PULSE 81; RESP 18; TEMP 36.9; O2SAT 96
[2023-09-22 20:24] LABS: Glucose, Whole Blood 192 mg/dL (60-115)
[2023-09-22] MEDS: Atorvastatin Calcium 10 MG TABLET PO (20:42)
[2023-09-22] MEDS: traZODone HCL 50 MG TABLET PO (20:42)
[2023-09-22] MEDS: Melatonin 3 MG TABLET 6 MG PO (22:54)
--- NOTE | 2023-09-23 | ECG_ITS ---
Test Reason : qtc check Blood Pressure : / mmHG Vent. Rate : 091 BPM Atrial Rate : 091 BPM P-R Int : 154 ms QRS Dur : 098 ms QT Int : 380 ms P-R-T Axes : 063 036 063 degrees QTc Int : 467 ms Sinus rhythm with occasional Premature ventricular complexes Otherwise normal ECG When compared with ECG of 20-SEP-2023 21:22, Premature ventricular complexes are now Present Referred By: Verenice Bryson Electronically Signed By:Orlando Hebert
[2023-09-23 03:55] VITALS: BP 118/62; PULSE 80; RESP 18; TEMP 36.3; O2SAT 97
[2023-09-23 07:34] VITALS: BP 132/67; PULSE 83; RESP 18; TEMP 36.3; O2SAT 97
[2023-09-23 07:44] LABS: Glucose, Whole Blood 144 mg/dL (60-115)
[2023-09-23] MEDS: Fluticasone Propionate 100 MCG BLST.W.DEV 2 PUFF INHALE ×2 (08:39→19:45)
[2023-09-23 08:43] VITALS: PULSE 83; RESP 18; O2SAT 97
[2023-09-23] MEDS: 0.9 % Sodium Chloride Flush 3 ML SYRINGE IVFLUSH ×2 (09:04→16:36)
[2023-09-23] MEDS: hydrALAZINE HCl 25 MG TABLET PO ×2 (09:05→21:58)
[2023-09-23] MEDS: Metoprolol Succinate ER 50 MG TAB.ER.24H PO (09:05)
[2023-09-23] MEDS: Isosorbide Mononitrate 30 MG TAB.ER.24H PO (09:05)
[2023-09-23] MEDS: risperiDONE 0.5 MG TABLET PO ×2 (09:05→21:58)
[2023-09-23] MEDS: Aspirin Enteric Coated 81 MG TABLET.DR PO (09:05)
[2023-09-23] MEDS: clonazePAM 0.5 MG TABLET PO ×2 (09:05→21:58)
[2023-09-23] MEDS: Gabapentin 400 MG CAPSULE PO ×2 (09:05→16:35)
[2023-09-23] MEDS: DULoxetine HCl 30 MG CAPSULE.DR PO (09:05)
[2023-09-23] MEDS: Enoxaparin Sodium 40 MG/0.4 ML SYRINGE SUBCUT (09:06)
--- NOTE | 2023-09-23 09:33 | MHC.CM.PN ---
Met with patient regarding discharge plan. She is interested in STR. PT and OT evaluation have been ordered. STR preferences have been obtained, referrals have been sent. The facilities have Pulmonary rehab programs. Psych plans to assess patient again today. CM will follow for placement.
[2023-09-23 11:30] LABS: Glucose, Whole Blood 163 mg/dL (60-115)
--- NOTE | 2023-09-23 11:38 | MHC.CLN ---
F/U DIET=DIABETIC 1800 KCAL, CARDIAC. PER WOUND RN 09/21: STAGE III TO LEFT BUTTOCK; STAGE II TO RIGHT BUTTOCK. ENSURE MAX BID TO PROMOTE WOUND HEALING. SUPPLEMENT PROVIDES 300 KCALS, 60 G PROTEIN. INTAKE APPEARS TO BE 100%. MONITOR PO INTAKE AND ENCOURAGE SUPPLEMENTS.
[2023-09-23] MEDS: Insulin Lispro 100 UNIT/ML 3 ML VIAL SUBCUT ×2 (12:59→22:00)
[2023-09-23 15:09] VITALS: BP 128/57; PULSE 89; RESP 16; TEMP 36.6; O2SAT 95
--- NOTE | 2023-09-23 15:14 | HO.PM.IMPN ---
Subjective Subjective Date of Service: 09/23/23 Interval History: Complaining of bilateral shoulder pain left greater than right unable to lift shoulders, requesting for help, no fevers, no chills ,no acute events overnight, tolerating diet no nausea, no vomiting,no abdominal pain, no chest pain or shortness of breath. Review of Systems All other system reviewed and negative Physical Exam Vital Signs: Vital Signs: Last Vital Signs Temp 97.8 F 09/23/23 15:09 Pulse 89 09/23/23 15:09 Resp 16 09/23/23 15:09 BP 128/57 L 09/23/23 15:09 Pulse Ox 95 09/23/23 15:09 O2 Del Method Nasal Cannula 09/23/23 15:09 O2 Flow Rate 2 09/23/23 15:09 BMI result Body Mass Index 53.4 Const: Other: General awake alert x3, in no acute distress.? Neck no JVD. CVS? regular rate rhythm, Respiratory lungs clear to auscultation, no respiratory distress, no wheeze, no rhonchi. Gastrointestinal abdomen soft, obese, non tender, bowel sounds audible, no guarding , no rigidity. Extremities no edema Left shoulder limited range of motion, no redness, no swelling, no bruising, using minimum effort Neuro non focal Skin no rash Objective Data Active Medications Acetaminophen (Acetaminophen 325 Mg Tablet) 650 mg PO Q6H PRN PRN Reason: Pain, Mild (Pain Scale 1-3) Aspirin (Aspirin Enteric Coated 81 Mg Tablet.) 81 mg PO DAILY [facility] Last Admin: 09/23/23 09:05 Dose: 81 mg Documented By: ANDRÉS Atorvastatin Calcium (Atorvastatin Calcium 10 Mg Tablet) 10 mg PO BEDTIME [facility] Last Admin: 09/22/23 20:42 Dose: 10 mg Documented By: TIFFANIE Clonazepam (Clonazepam 0.5 Mg Tablet) 0.5 mg PO BID [facility] Last Admin: 09/23/23 09:05 Dose: 0.5 mg Documented By: ANDRÉS Clonidine HCl (Clonidine Hcl 0.1 Mg Tablet) 0.1 mg PO TID PRN; Protocol PRN Reason: hyperarousal, anxiety, panic Last Admin: 09/22/23 22:54 Dose: 0.1 mg Documented By: TIFFANIE Dextrose (Dextrose 50 % 25 Gm/50 Ml Syringe) 25 gm IVPUSH Q15M PRN; Protocol PRN Reason: per Hypoglycemia Standing Ord. Duloxetine HCl (Duloxetine Hcl 30 Mg Capsule.) 30 mg PO DAILY@0900 [facility] Last Admin: 09/23/23 09:05 Dose: 30 mg Documented By: ANDRÉS Enoxaparin Sodium (Enoxaparin Sodium 40 Mg/0.4 Ml Syringe) 40 mg SUBCUT DAILY [facility] Last Admin: 09/23/23 09:06 Dose: 40 mg Documented By: ANDRÉS Fluticasone Propionate (Fluticasone Propionate 100 Mcg Blst.W.Dev) 2 puff INHALE RBID [facility] Last Admin: 09/23/23 08:39 Dose: 2 puff Documented By: BRESKRYSTEN Gabapentin (Gabapentin 400 Mg Capsule) 400 mg PO BID@0900,1500 [facility] Last Admin: 09/23/23 09:05 Dose: 400 mg Documented By: ANDÉRS Glucose (Glucose Gel 15 Gm Gel..Gram.) 15 gm PO Q15M PRN; Protocol PRN Reason: per Hypoglycemia Standing Ord. Hydralazine HCl (Hydralazine Hcl 25 Mg Tablet) 25 mg PO BID [facility]; Protocol Last Admin: 09/23/23 09:05 Dose: 25 mg Documented By: ANDRÉS Insulin Human Lispro (Insulin Lispro 100 Unit/Ml 3 Ml Vial) 0 unit SUBCUT QIDACHS [facility]; Protocol Last Admin: 09/23/23 12:59 Dose: 2 unit Documented By: ANDRÉS Isosorbide Mononitrate (Isosorbide Mononitrate 30 Mg Tab.Er.24h) 30 mg PO DAILY [facility]; Protocol Last Admin: 09/23/23 09:05 Dose: 30 mg Documented By: ANDRÉS Meclizine HCl (Meclizine Hcl 25 Mg Tablet) 25 mg PO TID PRN PRN Reason: Vertigo Melatonin (Melatonin 3 Mg Tablet) 6 mg PO BEDTIME PRN PRN Reason: Insomnia Last Admin: 09/22/23 22:54 Dose: 6 mg Documented By: TIFFANIE Metoprolol Succinate (Metoprolol Succinate Er 50 Mg Tab.Er.24h) 50 mg PO DAILY [facility]; Protocol Last Admin: 09/23/23 09:05 Dose: 50 mg Documented By: ANDRÉS Ondansetron HCl (Ondansetron Hcl 4 Mg/2 Ml Vial) 4 mg IVPUSH Q8H PRN PRN Reason: Nausea and Vomiting Risperidone (Risperidone 0.5 Mg Tablet) 0.5 mg PO BID [facility] Last Admin: 09/23/23 09:05 Dose: 0.5 mg Documented By: ANDRÉS Sodium Chloride (0.9 % Sodium Chloride Flush 3 Ml Syringe) 3 ml IVFLUSH QSHIFT [facility] Last Admin: 09/23/23 09:04 Dose: 3 ml Documented By: ANDRÉS Trazodone HCl (Trazodone Hcl 50 Mg Tablet) 50 mg PO BEDTIME [facility] Last Admin: 09/22/23 20:42 Dose: 50 mg Documented By: TIFFANIE Labs 09/21/23 04:57 09/21/23 04:57 Labs: Laboratory Results - last 24 hr 09/21/23 09/22/23 09/22/23 04:02 16:06 20:03 POC Glucose 207 H 192 H Ur Random Urea 644 09/23/23 09/23/23 07:38 11:26 POC Glucose 144 H 163 H Ur Random Urea Assessment and Plan (1) Mood disorder: Status: Acute (2) Chest pain: Status: Acute (3) FELICIA (acute kidney injury): Status: Acute Plan 63-year-old female with pertinent history of chronic hypoxemic respiratory failure due to COPD, DANIEL/OHS on 2 L supplemental oxygen, congestive heart failure with reduced ejection fraction, CKD stage 3, morbid obesity, insulin-dependent diabetes mellitus, mood disorder, essential hypertension who presents to the emergency department for chest discomfort and anxiety like symptoms. #. Acute kidney injury on CKD stage III: Status post IV fluid creatinine improved close to baseline, avoid nephrotoxins. #. Chest discomfort: Likely related to anxiety, Chest pain resolved, no recurrent symptoms, troponin negative, EKG showed no acute ischemic changes, history of ch. prolonged QT, D-dimer elevated, V/Q scan showed very low probability of pulmonary embolism. #. Generalized anxiety, uncontrolled: Seen by Psychiatry placed on Klonopin twice daily, BuSpar discontinued , appears less anxious this morning, no somnolence, seen by OT for [place] and score 17/22 Patient will require assistance with IADLs, including financial assistance, to maximize safety at home no further acute care O2 warranted # bilateral shoulder pain : Likely osteoarthritis, no injury, decreased range of motion, recommend Tylenol and [id number] exercises #. Insulin-dependent diabetes mellitus: Stable blood sugars, no recurrent episode of hypoglycemia continue insulin sliding scale and hold Lantus #. Chronic hypoxemic respiratory failure due to COPD, DANIEL/ohs on 2 L supplemental oxygen: Continue home inhalers and CPAP at bedtime. #. Morbid Obesity: Counseled regarding diet and weight loss. #. Congestive heart failure with reduced ejection fraction: No acute exacerbation, Hold Bumex in the setting of FELICIA #. Essential hypertension: Stable BP Continue home antihypertensives isosorbide, hydralazine, metoprolol, continued to hold amlodipine and follow BP # disposition seen by Physical therapy they recommend short-term rehab with transition to long-term care DVT prophylaxis: Lovenox Full code Patient need continued inpatient hospitalization for close monitoring of kidney function, worsening anxiety, expert consultation, which is not possible in a lesser acute setting. Quality Stroke Does the patient have a stroke diagnosis?: No VTE Prior VTE?: No VTE Risk Level:: Medical - moderate - high VTE Device Contraindication: Treatment Not Indicated VTE Drug Contraindication: N/A - Med Ordered
--- NOTE | 2023-09-23 15:32 | HO.PSYCHPN ---
Subjective Subjective Date of Service: 09/23/23 Reason For Visit: Chest Pain Subjective Notes: Conditional Voluntary Interim History: Interim: Pt continues to present with dysphoric mood. She is able to distract self. Pt today reports she is very hungry but can't move her arms as well to feed herself. She is crying, asking this software writer that she is anxious and very fearful to be on her own. She states she wants to live with her daughter, but daughter has children and works steward/stewardess room so unable to attend to her needs. No SI/HI. Diagnostics Vital Signs (24Hr): Vital Signs - 24 hr 09/22/23 19:49 09/22/23 19:55 09/23/23 03:55 Temperature 98.4 F 97.4 F Pulse Rate 80 81 80 Respiratory Rate 18 18 18 Blood Pressure 145/63 H 118/62 Pulse Oximetry 96 97 Oxygen Delivery Method Nasal Cannula Nasal Cannula Oxygen Flow Rate 2 2 09/23/23 07:34 09/23/23 08:43 09/23/23 15:09 Temperature 97.3 F 97.8 F Pulse Rate 83 83 89 Respiratory Rate 18 18 16 Blood Pressure 132/67 128/57 L Pulse Oximetry 97 95 Oxygen Delivery Method Nasal Cannula Nasal Cannula Oxygen Flow Rate 2.0 2 BMI result Body Mass Index 53.4 Labs 09/21/23 04:57 09/24/23 06:30 Labs: Laboratory Results - last 48 hr 09/21/23 09/21/23 09/21/23 04:02 16:35 20:28 POC Glucose 62 115 Ur Random Urea 644 09/22/23 09/22/23 09/22/23 07:21 07:50 11:24 POC Glucose 59 L* 77 128 H Ur Random Urea 09/22/23 09/22/23 09/23/23 16:06 20:03 07:38 POC Glucose 207 H 192 H 144 H Ur Random Urea 09/23/23 11:26 POC Glucose 163 H Ur Random Urea Imaging Radiology Impressions: ITS Impressions Chest X-Ray 09/20/23 21:06 IMPRESSION: Stable enlargement of the cardiac silhouette. Question pulmonary venous redistribution. Pulmonary Perfusion Imaging 09/21/23 08:40 IMPRESSION: Very low probability of pulmonary embolism. Cardiomegaly. Medications Medications Current Medications Acetaminophen (Acetaminophen 325 Mg Tablet) 650 mg PO Q6H PRN PRN Reason: Pain, Mild (Pain Scale 1-3) Aspirin (Aspirin Enteric Coated 81 Mg Tablet.) 81 mg PO DAILY [facility] Last Admin: 09/23/23 09:05 Dose: 81 mg Atorvastatin Calcium (Atorvastatin Calcium 10 Mg Tablet) 10 mg PO BEDTIME [facility] Last Admin: 09/22/23 20:42 Dose: 10 mg Clonazepam (Clonazepam 0.5 Mg Tablet) 0.5 mg PO BID [facility] Last Admin: 09/23/23 09:05 Dose: 0.5 mg Clonidine HCl (Clonidine Hcl 0.1 Mg Tablet) 0.1 mg PO TID PRN; Protocol PRN Reason: hyperarousal, anxiety, panic Last Admin: 09/22/23 22:54 Dose: 0.1 mg Dextrose (Dextrose 50 % 25 Gm/50 Ml Syringe) 25 gm IVPUSH Q15M PRN; Protocol PRN Reason: per Hypoglycemia Standing Ord. Duloxetine HCl (Duloxetine Hcl 30 Mg Capsule.) 30 mg PO DAILY@0900 [facility] Last Admin: 09/23/23 09:05 Dose: 30 mg Enoxaparin Sodium (Enoxaparin Sodium 40 Mg/0.4 Ml Syringe) 40 mg SUBCUT DAILY [facility] Last Admin: 09/23/23 09:06 Dose: 40 mg Fluticasone Propionate (Fluticasone Propionate 100 Mcg Blst.W.Dev) 2 puff INHALE RBID [facility] Last Admin: 09/23/23 08:39 Dose: 2 puff Gabapentin (Gabapentin 400 Mg Capsule) 400 mg PO BID@0900,1500 [facility] Last Admin: 09/23/23 09:05 Dose: 400 mg Glucose (Glucose Gel 15 Gm Gel..Gram.) 15 gm PO Q15M PRN; Protocol PRN Reason: per Hypoglycemia Standing Ord. Hydralazine HCl (Hydralazine Hcl 25 Mg Tablet) 25 mg PO BID [facility]; Protocol Last Admin: 09/23/23 09:05 Dose: 25 mg Insulin Human Lispro (Insulin Lispro 100 Unit/Ml 3 Ml Vial) 0 unit SUBCUT QIDACHS [facility]; Protocol Last Admin: 09/23/23 12:59 Dose: 2 unit Isosorbide Mononitrate (Isosorbide Mononitrate 30 Mg Tab.Er.24h) 30 mg PO DAILY [facility]; Protocol Last Admin: 09/23/23 09:05 Dose: 30 mg Meclizine HCl (Meclizine Hcl 25 Mg Tablet) 25 mg PO TID PRN PRN Reason: Vertigo Melatonin (Melatonin 3 Mg Tablet) 6 mg PO BEDTIME PRN PRN Reason: Insomnia Last Admin: 09/22/23 22:54 Dose: 6 mg Metoprolol Succinate (Metoprolol Succinate Er 50 Mg Tab.Er.24h) 50 mg PO DAILY [facility]; Protocol Last Admin: 09/23/23 09:05 Dose: 50 mg Ondansetron HCl (Ondansetron Hcl 4 Mg/2 Ml Vial) 4 mg IVPUSH Q8H PRN PRN Reason: Nausea and Vomiting Risperidone (Risperidone 0.5 Mg Tablet) 0.5 mg PO BID [facility] Last Admin: 09/23/23 09:05 Dose: 0.5 mg Sodium Chloride (0.9 % Sodium Chloride Flush 3 Ml Syringe) 3 ml IVFLUSH QSHIFT [facility] Last Admin: 09/23/23 09:04 Dose: 3 ml Trazodone HCl (Trazodone Hcl 50 Mg Tablet) 50 mg PO BEDTIME [facility] Last Admin: 09/22/23 20:42 Dose: 50 mg Allergies Allergies Allergy/AdvReac Type Severity Reaction Status Date / Time ibuprofen Allergy Intermediate vomiting, Verified 08/11/23 11:00 itching acetaminophen [Tylenol] Allergy Unknown Unknown Verified 08/11/23 11:00 codeine AdvReac Severe Anaphylaxis Verified 08/11/23 11:00 morphine AdvReac Intermediate vomiting Verified 05/15/23 20:51 vancomycin AdvReac Intermediate Itching Verified 05/15/23 20:51 Assessment & Plan Assessment & Plan (1) Mood disorder: Status: Acute Code(s): F39 - Unspecified mood [affective] disorder (2) Chest pain: Status: Acute Code(s): R07.9 - Chest pain, unspecified (3) FELICIA (acute kidney injury): Status: Acute Code(s): N17.9 - Acute kidney failure, unspecified Plan 63-year-old female with pertinent history of chronic hypoxemic respiratory failure due to COPD, DANIEL/OHS on 2 L supplemental oxygen, congestive heart failure with reduced ejection fraction, CKD stage 3, morbid obesity, insulin-dependent diabetes mellitus, mood disorder, essential hypertension who presents to the emergency department for chest discomfort and anxiety like symptoms. 09/22 Called daughter for collateral information, unable to leave VM as voicemail full. discussed with Dr. Alessio CASTILLO to complete MOCA. Reason for continued inpatient stay Substantial Risk for: inability to function Time Spent With Patient Time: Total time managing care of this patient today ____ minutes.
[2023-09-23 16:32] LABS: Glucose, Whole Blood 132 mg/dL (60-115)
[2023-09-23] MEDS: Acetaminophen 325 MG TABLET 650 MG PO (18:06)
[2023-09-23 19:21] VITALS: BP 140/65; PULSE 93; RESP 18; TEMP 36.9; O2SAT 93
--- NOTE | 2023-09-23 19:34 | PC.NURSE ---
Pt. been accusatory, demand, not cooperative for the shift. Picked stuff from her lunch and dinner tray but then called her daughter stated that her tray fell down on the floor and staff refused to give her replacement try and or helping her. All her needs have been addressed with the provider t bedside with no success. Pt. been yelling out and screaming all day, call lopez within reach but pt. refused to utilize it.
[2023-09-23 19:48] VITALS: PULSE 93; RESP 18; O2SAT 93
[2023-09-23 20:49] LABS: Glucose, Whole Blood 168 mg/dL (60-115)
[2023-09-23] MEDS: Atorvastatin Calcium 10 MG TABLET PO (21:58)
[2023-09-23] MEDS: traZODone HCL 50 MG TABLET PO (21:58)
[2023-09-23] MEDS: Insulin Glargine,Hum.rec.anlog 100 UNIT/ML 10 ML VIAL 10 UNIT SUBCUT (22:22)
[2023-09-24] VITALS (7 sets, daily range): BP systolic 136–166; BP diastolic 59–75; PULSE 88–101; RESP 17–20; TEMP 36.3–37.1; O2SAT 93–99
[2023-09-24] MEDS: 0.9 % Sodium Chloride Flush 3 ML SYRINGE IVFLUSH ×4 (01:29→21:11)
[2023-09-24 07:00] LABS: Anion Gap 12 (12-20); Blood Urea Nitrogen 47 mg/dL (9-16); Calcium 8.7 mg/dL (8.4-10.2); Carbon Dioxide 28 mmol/L (22-29); Chloride 105 mmol/L (96-108); Creatinine Clr Calc Pharmacy 64.2; Estimated Glomerular Filt Rate 46; Glucose Random 167 mg/dL (60-115); Sodium 140 mmol/L (135-145)
--- NOTE | 2023-09-24 07:03 | PC.NURSE ---
Assumed care of patient at midnight. See shift assessment and EMAR for full details. Handoff report given 06:45 to oncoming RN.
[2023-09-24 07:16] LABS: Estimated Average Glucose 126 mg/dL; Hemoglobin A1C 103.2908 umol/L
[2023-09-24 07:39] LABS: Glucose, Whole Blood 163 mg/dL (60-115)
[2023-09-24] MEDS: Fluticasone Propionate 100 MCG BLST.W.DEV 2 PUFF INHALE ×2 (08:11→20:11)
--- NOTE | 2023-09-24 08:57 | PC.NURSE ---
Pt screaming from room. Asking for Bedpan. Unable to ambulate or turn self to place on bed mei. Dependent on staff for care, pt making false accusations that staff is hurting her while turning her to put on bed mei. Pt is morbidly Obese and c/o pain at baseline. Unable to educate and redirect while patient is yelling.
[2023-09-24] MEDS: Aspirin Enteric Coated 81 MG TABLET.DR PO (09:00)
[2023-09-24] MEDS: risperiDONE 0.5 MG TABLET PO ×2 (09:01→21:10)
[2023-09-24] MEDS: Gabapentin 400 MG CAPSULE PO ×2 (09:01→15:12)
[2023-09-24] MEDS: Metoprolol Succinate ER 50 MG TAB.ER.24H PO (09:02)
[2023-09-24] MEDS: DULoxetine HCl 30 MG CAPSULE.DR PO (09:02)
[2023-09-24] MEDS: hydrALAZINE HCl 25 MG TABLET PO ×2 (09:02→21:10)
[2023-09-24] MEDS: Isosorbide Mononitrate 30 MG TAB.ER.24H PO (09:03)
[2023-09-24] MEDS: clonazePAM 0.5 MG TABLET PO ×2 (09:03→21:10)
[2023-09-24] MEDS: Enoxaparin Sodium 40 MG/0.4 ML SYRINGE SUBCUT (09:03)
[2023-09-24] MEDS: Insulin Lispro 100 UNIT/ML 3 ML VIAL SUBCUT ×4 (09:04→21:23)
[2023-09-24] MEDS: Acetaminophen 325 MG TABLET 650 MG PO (10:59)
[2023-09-24 11:55] LABS: Glucose, Whole Blood 242 mg/dL (60-115)
--- NOTE | 2023-09-24 14:41 | MHC.CM.PN ---
Patient was seen by [facility]. They have agreed to take the patient. The plan is to review bed availability. DP DC to [facility] via BLS, pending bed availability.
--- NOTE | 2023-09-24 15:58 | HO.PM.IMPN ---
Subjective Subjective Date of Service: 09/24/23 Interval History: Complaining of left elbow pain, bilateral shoulder pain, lower back pain, keep yelling for help, tolerating diet no nausea, no vomiting, no abdominal pain or diarrhea, no acute events overnight. Review of Systems All other system reviewed and negative. Physical Exam Vital Signs: Vital Signs: Last Vital Signs Temp 97.7 F 09/24/23 15:15 Pulse 98 09/24/23 15:15 Resp 17 09/24/23 15:15 BP 148/67 H 09/24/23 15:15 Pulse Ox 98 09/24/23 15:15 O2 Del Method Nasal Cannula 09/24/23 15:15 O2 Flow Rate 98 09/24/23 15:15 BMI result Body Mass Index 53.4 Const: Other: General awake alert x3, in no acute distress.? Neck no JVD. CVS? regular rate rhythm, Respiratory lungs clear to auscultation, no respiratory distress, no wheeze, no rhonchi. Gastrointestinal abdomen soft, obese, non tender, bowel sounds audible, no guarding , no rigidity. Extremities no edema Both shoulder limited range of motion, no redness, no swelling, no bruising, using minimum effort, limited range of motion both elbows, minimum effort used Neuro non focal Skin no rash Objective Data Active Medications Acetaminophen (Acetaminophen 325 Mg Tablet) 650 mg PO Q6H PRN PRN Reason: Pain, Mild (Pain Scale 1-3) Last Admin: 09/24/23 10:59 Dose: 650 mg Documented By: BAKARI Aspirin (Aspirin Enteric Coated 81 Mg Tablet.) 81 mg PO DAILY [facility] Last Admin: 09/24/23 09:00 Dose: 81 mg Documented By: SURAJ Atorvastatin Calcium (Atorvastatin Calcium 10 Mg Tablet) 10 mg PO BEDTIME [facility] Last Admin: 09/23/23 21:58 Dose: 10 mg Documented By: MOOKIE Clonazepam (Clonazepam 0.5 Mg Tablet) 0.5 mg PO BID [facility] Last Admin: 09/24/23 09:03 Dose: 0.5 mg Documented By: SURAJ Clonidine HCl (Clonidine Hcl 0.1 Mg Tablet) 0.1 mg PO TID PRN; Protocol PRN Reason: hyperarousal, anxiety, panic Last Admin: 09/22/23 22:54 Dose: 0.1 mg Documented By: TIFFANIE Dextrose (Dextrose 50 % 25 Gm/50 Ml Syringe) 25 gm IVPUSH Q15M PRN; Protocol PRN Reason: per Hypoglycemia Standing Ord. Duloxetine HCl (Duloxetine Hcl 30 Mg Capsule.Dr) 30 mg PO DAILY@0900 [facility] Last Admin: 09/24/23 09:02 Dose: 30 mg Documented By: SURAJ Enoxaparin Sodium (Enoxaparin Sodium 40 Mg/0.4 Ml Syringe) 40 mg SUBCUT DAILY [facility] Last Admin: 09/24/23 09:03 Dose: 40 mg Documented By: SURAJ Fluticasone Propionate (Fluticasone Propionate 100 Mcg Blst.W.Dev) 2 puff INHALE RBID [facility] Last Admin: 09/24/23 08:11 Dose: 2 puff Documented By: DANIELA Gabapentin (Gabapentin 400 Mg Capsule) 400 mg PO BID@0900,1500 [facility] Last Admin: 09/24/23 15:12 Dose: 400 mg Documented By: BAKARI Glucose (Glucose Gel 15 Gm Gel..Gram.) 15 gm PO Q15M PRN; Protocol PRN Reason: per Hypoglycemia Standing Ord. Hydralazine HCl (Hydralazine Hcl 25 Mg Tablet) 25 mg PO BID [facility]; Protocol Last Admin: 09/24/23 09:02 Dose: 25 mg Documented By: SURAJ Insulin Glargine (Insulin Glargine,Hum.Rec.Anlog 100 Unit/Ml 10 Ml Vial) 10 unit SUBCUT BEDTIME [facility] Last Admin: 09/23/23 22:22 Dose: 10 unit Documented By: MOOKIE Insulin Human Lispro (Insulin Lispro 100 Unit/Ml 3 Ml Vial) 0 unit SUBCUT QIDACHS [facility]; Protocol Last Admin: 09/24/23 12:26 Dose: 4 unit Documented By: BAKARI Isosorbide Mononitrate (Isosorbide Mononitrate 30 Mg Tab.Er.24h) 30 mg PO DAILY [facility]; Protocol Last Admin: 09/24/23 09:03 Dose: 30 mg Documented By: SURAJ Meclizine HCl (Meclizine Hcl 25 Mg Tablet) 25 mg PO TID PRN PRN Reason: Vertigo Melatonin (Melatonin 3 Mg Tablet) 6 mg PO BEDTIME PRN PRN Reason: Insomnia Last Admin: 09/22/23 22:54 Dose: 6 mg Documented By: TIFFANIE Metoprolol Succinate (Metoprolol Succinate Er 50 Mg Tab.Er.24h) 50 mg PO DAILY [facility]; Protocol Last Admin: 09/24/23 09:02 Dose: 50 mg Documented By: SURAJ Ondansetron HCl (Ondansetron Hcl 4 Mg/2 Ml Vial) 4 mg IVPUSH Q8H PRN PRN Reason: Nausea and Vomiting Risperidone (Risperidone 0.5 Mg Tablet) 0.5 mg PO BID [facility] Last Admin: 09/24/23 09:01 Dose: 0.5 mg Documented By: SURAJ Sodium Chloride (0.9 % Sodium Chloride Flush 3 Ml Syringe) 3 ml IVFLUSH QSHIFT [facility] Last Admin: 09/24/23 15:12 Dose: 3 ml Documented By: BAKARI Trazodone HCl (Trazodone Hcl 50 Mg Tablet) 50 mg PO BEDTIME [facility] Last Admin: 09/23/23 21:58 Dose: 50 mg Documented By: MOOKIE Labs 09/21/23 04:57 09/24/23 06:30 Labs: Laboratory Results - last 24 hr 09/23/23 09/23/23 09/24/23 16:20 20:36 06:30 Anion Gap 12 Estim Creat Clear Calc 64.2 Estimated GFR 46 POC Glucose 132 H 168 H Random Glucose 167 H Estimat Average Glucose 126 Hemoglobin A1c % 6.0 Calcium 8.7 D 09/24/23 09/24/23 07:28 11:37 Anion Gap Estim Creat Clear Calc Estimated GFR POC Glucose 163 H 242 H Random Glucose Estimat Average Glucose Hemoglobin A1c % Calcium Assessment and Plan (1) Mood disorder: Status: Acute (2) Chest pain: Status: Acute (3) FELICIA (acute kidney injury): Status: Acute Plan 63-year-old female with pertinent history of chronic hypoxemic respiratory failure due to COPD, DANIEL/OHS on 2 L supplemental oxygen, congestive heart failure with reduced ejection fraction, CKD stage 3, morbid obesity, insulin-dependent diabetes mellitus, mood disorder, essential hypertension who presents to the emergency department for chest discomfort and anxiety like symptoms. #. Acute kidney injury on CKD stage III: Status post IV fluid creatinine improved close to baseline, avoid nephrotoxins. #. Chest discomfort: Likely related to anxiety, Chest pain resolved, no recurrent symptoms, troponin negative, EKG showed no acute ischemic changes, history of ch. prolonged QT, D-dimer elevated, V/Q scan showed very low probability of pulmonary embolism. #. Generalized anxiety, uncontrolled: Seen by Psychiatry placed on Klonopin twice daily, BuSpar discontinued , appears less anxious , no somnolence, seen by OT for [place] and score 17/22 Patient will require assistance with IADLs, including financial assistance, to maximize safety at home no further acute care by OT warranted # bilateral shoulder pain/elbow pain : Likely osteoarthritis, no injury, decreased range of motion, recommend Tylenol and [id number] exercises #. Insulin-dependent diabetes mellitus: Stable blood sugars, no recurrent episode of hypoglycemia continue insulin sliding scale and Lantus low-dose #. Chronic hypoxemic respiratory failure due to COPD, DANIEL/ohs on 2 L supplemental oxygen: Continue home inhalers and CPAP at bedtime. #. Morbid Obesity: Counseled regarding diet and weight loss. #. Congestive heart failure with reduced ejection fraction: No acute exacerbation, Hold Bumex in the setting of FELICIA #. Essential hypertension: Stable BP Continue home antihypertensives isosorbide, hydralazine, metoprolol, continued to hold amlodipine and follow BP # disposition seen by Physical therapy they recommend short-term rehab with transition to long-term care DVT prophylaxis: Lovenox Full code Patient need continued inpatient hospitalization for close monitoring of kidney function, worsening anxiety, expert consultation, and safe disposition . Quality Stroke Does the patient have a stroke diagnosis?: No VTE Prior VTE?: No VTE Risk Level:: Medical - moderate - high VTE Device Contraindication: Treatment Not Indicated VTE Drug Contraindication: N/A - Med Ordered
[2023-09-24 16:03] LABS: Glucose, Whole Blood 165 mg/dL (60-115)
[2023-09-24 20:34] LABS: Glucose, Whole Blood 220 mg/dL (60-115)
[2023-09-24] MEDS: Atorvastatin Calcium 10 MG TABLET PO (21:10)
[2023-09-24] MEDS: traZODone HCL 50 MG TABLET PO (21:10)
[2023-09-24] MEDS: Insulin Glargine,Hum.rec.anlog 100 UNIT/ML 10 ML VIAL 10 UNIT SUBCUT (21:11)
[2023-09-25 04:00] VITALS: BP 122/70; PULSE 97; RESP 18; TEMP 36.7; O2SAT 95
[2023-09-25 06:51] VITALS: BP 144/82; PULSE 101; RESP 19; TEMP 36.1; O2SAT 90
[2023-09-25 07:15] LABS: Glucose, Whole Blood 163 mg/dL (60-115)
[2023-09-25] MEDS: Insulin Lispro 100 UNIT/ML 3 ML VIAL SUBCUT ×2 (07:29→20:19)
[2023-09-25] MEDS: 0.9 % Sodium Chloride Flush 3 ML SYRINGE IVFLUSH ×2 (07:29→16:45)
[2023-09-25] MEDS: Enoxaparin Sodium 40 MG/0.4 ML SYRINGE SUBCUT (07:30)
[2023-09-25] MEDS: Gabapentin 400 MG CAPSULE PO ×2 (07:31→16:43)
[2023-09-25] MEDS: Isosorbide Mononitrate 30 MG TAB.ER.24H PO (07:31)
[2023-09-25] MEDS: Metoprolol Succinate ER 50 MG TAB.ER.24H PO (07:31)
[2023-09-25] MEDS: DULoxetine HCl 30 MG CAPSULE.DR PO (07:31)
[2023-09-25] MEDS: Aspirin Enteric Coated 81 MG TABLET.DR PO (07:31)
[2023-09-25] MEDS: hydrALAZINE HCl 25 MG TABLET PO ×2 (07:32→20:20)
[2023-09-25] MEDS: risperiDONE 0.5 MG TABLET PO ×2 (07:32→20:20)
[2023-09-25] MEDS: clonazePAM 0.5 MG TABLET PO ×2 (07:32→20:20)
[2023-09-25] MEDS: Fluticasone Propionate 100 MCG BLST.W.DEV 2 PUFF INHALE ×2 (08:24→19:59)
[2023-09-25 08:28] VITALS: PULSE 98; RESP 20; O2SAT 98
--- NOTE | 2023-09-25 11:10 | MHC.CLN ---
F/U DIET=DIABETIC 1800 KCAL, CARDIAC. PER WOUND RN 09/21: STAGE III TO LEFT BUTTOCK; STAGE II TO RIGHT BUTTOCK. ENSURE MAX BID TO PROMOTE WOUND HEALING. SUPPLEMENT PROVIDES 300 KCALS, 60 G PROTEIN. INTAKE VARIABLE, 50-100%. MONITOR PO INTAKE AND ENCOURAGE SUPPLEMENTS.
[2023-09-25 11:12] LABS: Glucose, Whole Blood 184 mg/dL (60-115)
--- NOTE | 2023-09-25 15:06 | P.PNIM_ITS ---
Subjective Subjective Date of Service: 09/25/23 Interval History: Complaining of bilateral upper extremity discomfort, back pain asking for have, tolerating diet, no nausea, no vomiting ,no other acute issues overnight. Review of Systems All other system reviewed and negative. Physical Exam 2 Vital Signs: Vital Signs: Last Vital Signs Temp 97 F 09/25/23 06:51 Pulse 98 09/25/23 08:28 Resp 20 09/25/23 08:28 BP 144/82 H 09/25/23 06:51 Pulse Ox 90 L 09/25/23 06:51 O2 Del Method Nasal Cannula 09/25/23 06:51 O2 Flow Rate 3 09/25/23 06:51 BMI result Body Mass Index 53.4 Const: Other: General awake alert x3, in no acute distress.? Neck no JVD. CVS? regular rate rhythm, Respiratory lungs clear to auscultation, no respiratory distress, no wheeze, no rhonchi. Gastrointestinal abdomen soft, obese, non tender, bowel sounds audible, no guarding , no rigidity. Extremities no edema Both shoulder limited range of motion, no redness, no swelling, no bruising, using minimum effort, limited range of motion both elbows, minimum effort used Neuro non focal Skin no rash Objective Data Active Medications Acetaminophen (Acetaminophen 325 Mg Tablet) 650 mg PO Q6H PRN PRN Reason: Pain, Mild (Pain Scale 1-3) Last Admin: 09/24/23 10:59 Dose: 650 mg Documented By: BAKARI Aspirin (Aspirin Enteric Coated 81 Mg Tablet.) 81 mg PO DAILY [facility] Last Admin: 09/25/23 07:31 Dose: 81 mg Documented By: BAKARI Atorvastatin Calcium (Atorvastatin Calcium 10 Mg Tablet) 10 mg PO BEDTIME [facility] Last Admin: 09/24/23 21:10 Dose: 10 mg Documented By: FANY Clonazepam (Clonazepam 0.5 Mg Tablet) 0.5 mg PO BID [facility] Last Admin: 09/25/23 07:32 Dose: 0.5 mg Documented By: BAKARI Clonidine HCl (Clonidine Hcl 0.1 Mg Tablet) 0.1 mg PO TID PRN; Protocol PRN Reason: hyperarousal, anxiety, panic Last Admin: 09/22/23 22:54 Dose: 0.1 mg Documented By: HO.CROP Dextrose (Dextrose 50 % 25 Gm/50 Ml Syringe) 25 gm IVPUSH Q15M PRN; Protocol PRN Reason: per Hypoglycemia Standing Ord. Duloxetine HCl (Duloxetine Hcl 30 Mg Capsule.Dr) 30 mg PO DAILY@0900 [facility] Last Admin: 09/25/23 07:31 Dose: 30 mg Documented By: BAKARI Enoxaparin Sodium (Enoxaparin Sodium 40 Mg/0.4 Ml Syringe) 40 mg SUBCUT DAILY [facility] Last Admin: 09/25/23 07:30 Dose: 40 mg Documented By: BAKARI Fluticasone Propionate (Fluticasone Propionate 100 Mcg Blst.W.Dev) 2 puff INHALE RBID [facility] Last Admin: 09/25/23 08:24 Dose: 2 puff Documented By: ANDERSON Gabapentin (Gabapentin 400 Mg Capsule) 400 mg PO BID@0900,1500 [facility] Last Admin: 09/25/23 07:31 Dose: 400 mg Documented By: BAKARI Glucose (Glucose Gel 15 Gm Gel..Gram.) 15 gm PO Q15M PRN; Protocol PRN Reason: per Hypoglycemia Standing Ord. Hydralazine HCl (Hydralazine Hcl 25 Mg Tablet) 25 mg PO BID [facility]; Protocol Last Admin: 09/25/23 07:32 Dose: 25 mg Documented By: BAKARI Insulin Glargine (Insulin Glargine,Hum.Rec.Anlog 100 Unit/Ml 10 Ml Vial) 10 unit SUBCUT BEDTIME [facility] Last Admin: 09/24/23 21:11 Dose: 10 unit Documented By: FANY Insulin Human Lispro (Insulin Lispro 100 Unit/Ml 3 Ml Vial) 0 unit SUBCUT QIDACHS [facility]; Protocol Last Admin: 09/25/23 12:50 Dose: Not Given Documented By: BAKARI Non-Admin Reason: pt sleeping, does not want to eat at this [place] Isosorbide Mononitrate (Isosorbide Mononitrate 30 Mg Tab.Er.24h) 30 mg PO DAILY [facility]; Protocol Last Admin: 09/25/23 07:31 Dose: 30 mg Documented By: BAKARI Meclizine HCl (Meclizine Hcl 25 Mg Tablet) 25 mg PO TID PRN PRN Reason: Vertigo Melatonin (Melatonin 3 Mg Tablet) 6 mg PO BEDTIME PRN PRN Reason: Insomnia Last Admin: 09/22/23 22:54 Dose: 6 mg Documented By: TIFFANIE Metoprolol Succinate (Metoprolol Succinate Er 50 Mg Tab.Er.24h) 50 mg PO DAILY [facility]; Protocol Last Admin: 09/25/23 07:31 Dose: 50 mg Documented By: BAKARI Ondansetron HCl (Ondansetron Hcl 4 Mg/2 Ml Vial) 4 mg IVPUSH Q8H PRN PRN Reason: Nausea and Vomiting Risperidone (Risperidone 0.5 Mg Tablet) 0.5 mg PO BID [facility] Last Admin: 09/25/23 07:32 Dose: 0.5 mg Documented By: BAKARI Sodium Chloride (0.9 % Sodium Chloride Flush 3 Ml Syringe) 3 ml IVFLUSH QSHIFT [facility] Last Admin: 09/25/23 07:29 Dose: 3 ml Documented By: BAKARI Trazodone HCl (Trazodone Hcl 50 Mg Tablet) 50 mg PO BEDTIME [facility] Last Admin: 09/24/23 21:10 Dose: 50 mg Documented By: FANY Labs 09/21/23 04:57 09/24/23 06:30 Labs: Laboratory Results - last 24 hr 09/24/23 09/24/23 09/25/23 15:53 20:20 07:10 POC Glucose 165 H 220 H 163 H 09/25/23 11:02 POC Glucose 184 H Assessment and Plan (1) Mood disorder: Status: Acute (2) Chest pain: Status: Acute (3) FELICIA (acute kidney injury): Status: Acute Plan 63-year-old female with pertinent history of chronic hypoxemic respiratory failure due to COPD, DANIEL/OHS on 2 L supplemental oxygen, congestive heart failure with reduced ejection fraction, CKD stage 3, morbid obesity, insulin- dependent diabetes mellitus, mood disorder, essential hypertension who presents to the emergency department for chest discomfort and anxiety like symptoms. #. Acute kidney injury on CKD stage III: Resolved status post IV fluids , avoid nephrotoxins and hypotension. #. Chest discomfort: Likely related to anxiety, Chest pain resolved, no recurrent symptoms, troponin negative, EKG showed no acute ischemic changes, history of ch. prolonged QT, D-dimer elevated, V/Q scan showed very low probability of pulmonary embolism. #. Generalized anxiety, uncontrolled: Seen by Psychiatry placed on Klonopin twice daily, BuSpar discontinued , appears less anxious , no somnolence, seen by OT for [place] and score 17/22 Patient will require assistance with IADLs, including financial assistance, to maximize safety at home no further acute care by OT warranted # bilateral shoulder pain/elbow pain : Likely osteoarthritis, no injury, decreased range of motion, recommend Tylenol and [id number] exercises #. Insulin-dependent diabetes mellitus: Stable blood sugars, no recurrent episode of hypoglycemia continue insulin sliding scale and Lantus low-dose b.i.d., home dose 45 b.i.d. #. Chronic hypoxemic respiratory failure due to COPD, DANIEL/ohs on 2 L supplemental oxygen: Continue home inhalers and CPAP at bedtime. #. Morbid Obesity: Counseled regarding diet and weight loss. #. Congestive heart failure with reduced ejection fraction: No acute exacerbation, Hold Bumex remains euvolemic . #. Essential hypertension: Stable BP Continue home antihypertensives isosorbide, hydralazine, metoprolol, continue to hold amlodipine and follow BP # disposition seen by Physical therapy they recommend short-term rehab with transition to long-term care DVT prophylaxis: Lovenox Full code Patient need continued inpatient hospitalization for close monitoring of kidney function, worsening anxiety, expert consultation, and safe disposition . Quality Stroke Does the patient have a stroke diagnosis?: No VTE Prior VTE?: No VTE Risk Level:: Medical - moderate - high VTE Device Contraindication: Treatment Not Indicated VTE Drug Contraindication: N/A - Med Ordered
--- NOTE | 2023-09-25 15:10 | MHC.CM.PN ---
[facility] has offered a bed. The bed will be available Thursday. DC Thursday via BLS.
[2023-09-25 16:36] LABS: Glucose, Whole Blood 147 mg/dL (60-115)
[2023-09-25] MEDS: cloNIDine HCL 0.1 MG TABLET PO (16:42)
[2023-09-25] MEDS: Acetaminophen 325 MG TABLET 650 MG PO (16:42)
[2023-09-25 19:32] VITALS: BP 152/65; PULSE 89; RESP 16; TEMP 36.5; O2SAT 96
[2023-09-25 19:38] LABS: Glucose, Whole Blood 173 mg/dL (60-115)
[2023-09-25 19:59] VITALS: PULSE 88; RESP 20; O2SAT 97
[2023-09-25] MEDS: Insulin Glargine,Hum.rec.anlog 100 UNIT/ML 10 ML VIAL 15 UNIT SUBCUT (20:20)
[2023-09-25] MEDS: traZODone HCL 50 MG TABLET PO (20:20)
[2023-09-25] MEDS: Atorvastatin Calcium 10 MG TABLET PO (20:20)
[2023-09-26] MEDS: 0.9 % Sodium Chloride Flush 3 ML SYRINGE IVFLUSH ×4 (00:24→23:47)
[2023-09-26 03:03] VITALS: BP 138/81; PULSE 91; RESP 16; TEMP 36.2; O2SAT 97
[2023-09-26 07:59] VITALS: PULSE 89; RESP 18; O2SAT 96
[2023-09-26] MEDS: Fluticasone Propionate 100 MCG BLST.W.DEV 2 PUFF INHALE ×2 (07:59→19:39)
[2023-09-26 08:00] VITALS: BP 144/76; PULSE 113; RESP 20; TEMP 36.6; O2SAT 94
[2023-09-26 08:28] LABS: Glucose, Whole Blood 144 mg/dL (60-115)
[2023-09-26] MEDS: Aspirin Enteric Coated 81 MG TABLET.DR PO (08:41)
[2023-09-26] MEDS: clonazePAM 0.5 MG TABLET PO (08:41)
[2023-09-26] MEDS: risperiDONE 0.5 MG TABLET PO ×2 (08:41→20:20)
[2023-09-26] MEDS: hydrALAZINE HCl 25 MG TABLET PO ×2 (08:42→20:20)
[2023-09-26] MEDS: Metoprolol Succinate ER 50 MG TAB.ER.24H PO (08:42)
[2023-09-26] MEDS: DULoxetine HCl 30 MG CAPSULE.DR PO (08:42)
[2023-09-26] MEDS: Isosorbide Mononitrate 30 MG TAB.ER.24H PO (08:42)
[2023-09-26] MEDS: Gabapentin 400 MG CAPSULE PO ×2 (08:42→17:02)
[2023-09-26] MEDS: Insulin Glargine,Hum.rec.anlog 100 UNIT/ML 10 ML VIAL 15 UNIT SUBCUT ×2 (08:44→20:21)
[2023-09-26] MEDS: Enoxaparin Sodium 40 MG/0.4 ML SYRINGE SUBCUT (08:45)
[2023-09-26] MEDS: Acetaminophen 325 MG TABLET 650 MG PO ×2 (08:50→20:39)
--- NOTE | 2023-09-26 10:17 | PC.NURSE ---
Pt ambulated to BR using wheeled walker. Staff standby. Pt needs much encouragement continuously stating I can't do it, I can't do it . ADL's done while pt in [place]. Pt teary at times
[2023-09-26] MEDS: cloNIDine HCL 0.1 MG TABLET PO ×2 (11:24→19:14)
[2023-09-26 11:57] LABS: Glucose, Whole Blood 172 mg/dL (60-115)
--- NOTE | 2023-09-26 12:01 | MHC.CM.PN ---
PT WAS SCHEDULED TO DC TO [facility] ON THURSDAY PER PT RECOMMENDATIONS PT NOW STATING SHE FEELS BETTER AND WANTS TO GO HOME CM MET WITH HER, SHE SAYS SHE WAS ABLE TO AMBULATE TO THE REST ROOM USING A WALKER THIS MORNING AND FEELS SHE CAN MANAGE AT HOME SHE SAYS SHE HAS [facility] [employer] AND THEY WILL ASSIST WITH ANYTHING SHE NEEDS SHE ADMITS SHE HAS NOT BEEN ABLE TO REACH THEM BY PHONE DURING ADMISSION, BUT DENIES BEING CONCERNED SHE SAYS SHE IS CONFIDENT THEY WILL SHOW UP ONCE THEY ARE INFORMED SHE IS GOING HOME PT STATES SHE HAS HER APARTMENT KEYS IN HER BAG AND TAKES AN AMBULANCE HOME
[2023-09-26] MEDS: Insulin Lispro 100 UNIT/ML 3 ML VIAL SUBCUT ×2 (12:18→20:20)
--- NOTE | 2023-09-26 13:06 | HO.PM.IMPN ---
Subjective Subjective Date of Service: 09/27/23 Interval History: Feeling better this morning able to feed herself less shoulder and elbow discomfort and increased mobility, requesting to be discharged home, ambulated with walker from bed to bathroom, no overnight events, no fevers, no chills, no shortness of breath, no palpitations tolerating diet with no nausea, no vomiting, no abdominal pain or diarrhea. Review of Systems All other system reviewed and negative. Physical Exam Vital Signs: Vital Signs: Last Vital Signs Temp 98 F 09/26/23 08:00 Pulse 113 H 09/26/23 08:00 Resp 20 09/26/23 08:00 BP 144/76 H 09/26/23 08:00 Pulse Ox 94 09/26/23 08:00 O2 Del Method Nasal Cannula 09/26/23 08:00 O2 Flow Rate 2 09/26/23 08:00 BMI result Body Mass Index 53.4 Const: Other: General awake alert x3, in no acute distress.? Neck no JVD. CVS? regular rate rhythm, Respiratory lungs clear to auscultation, no respiratory distress, no wheeze, no rhonchi. Gastrointestinal abdomen soft, obese, non tender, bowel sounds audible, no guarding , no rigidity. Extremities no edema Both shoulder limited range of motion, no redness, no swelling, no bruising, better range of motion today at shoulders and both elbows. Neuro non focal Skin no rash Objective Data Active Medications Acetaminophen (Acetaminophen 325 Mg Tablet) 650 mg PO Q6H PRN PRN Reason: Pain, Mild (Pain Scale 1-3) Last Admin: 09/26/23 08:50 Dose: 650 mg Documented By: INEZ Aspirin (Aspirin Enteric Coated 81 Mg Tablet.) 81 mg PO DAILY [facility] Last Admin: 09/26/23 08:41 Dose: 81 mg Documented By: INEZ Atorvastatin Calcium (Atorvastatin Calcium 10 Mg Tablet) 10 mg PO BEDTIME [facility] Last Admin: 09/25/23 20:20 Dose: 10 mg Documented By: JUVE Clonazepam (Clonazepam 0.5 Mg Tablet) 0.5 mg PO BID [facility] Last Admin: 09/26/23 08:41 Dose: 0.5 mg Documented By: INEZ Clonidine HCl (Clonidine Hcl 0.1 Mg Tablet) 0.1 mg PO TID PRN; Protocol PRN Reason: hyperarousal, anxiety, panic Last Admin: 09/26/23 11:24 Dose: 0.1 mg Documented By: INEZ Dextrose (Dextrose 50 % 25 Gm/50 Ml Syringe) 25 gm IVPUSH Q15M PRN; Protocol PRN Reason: per Hypoglycemia Standing Ord. Duloxetine HCl (Duloxetine Hcl 30 Mg Capsule.Dr) 30 mg PO DAILY@0900 [facility] Last Admin: 09/26/23 08:42 Dose: 30 mg Documented By: INEZ Enoxaparin Sodium (Enoxaparin Sodium 40 Mg/0.4 Ml Syringe) 40 mg SUBCUT DAILY [facility] Last Admin: 09/26/23 08:45 Dose: 40 mg Documented By: INEZ Fluticasone Propionate (Fluticasone Propionate 100 Mcg Blst.W.Dev) 2 puff INHALE RBID [facility] Last Admin: 09/26/23 07:59 Dose: 2 puff Documented By: ZENA Gabapentin (Gabapentin 400 Mg Capsule) 400 mg PO BID@0900,1500 [facility] Last Admin: 09/26/23 08:42 Dose: 400 mg Documented By: INEZ Glucose (Glucose Gel 15 Gm Gel..Gram.) 15 gm PO Q15M PRN; Protocol PRN Reason: per Hypoglycemia Standing Ord. Hydralazine HCl (Hydralazine Hcl 25 Mg Tablet) 25 mg PO BID [facility]; Protocol Last Admin: 09/26/23 08:42 Dose: 25 mg Documented By: INEZ Insulin Glargine (Insulin Glargine,Hum.Rec.Anlog 100 Unit/Ml 10 Ml Vial) 15 unit SUBCUT BID [facility] Last Admin: 09/26/23 08:44 Dose: 15 unit Documented By: INEZ Insulin Human Lispro (Insulin Lispro 100 Unit/Ml 3 Ml Vial) 0 unit SUBCUT QIDACHS [facility]; Protocol Last Admin: 09/26/23 12:18 Dose: 2 unit Documented By: INEZ Isosorbide Mononitrate (Isosorbide Mononitrate 30 Mg Tab.Er.24h) 30 mg PO DAILY [facility]; Protocol Last Admin: 09/26/23 08:42 Dose: 30 mg Documented By: INEZ Meclizine HCl (Meclizine Hcl 25 Mg Tablet) 25 mg PO TID PRN PRN Reason: Vertigo Melatonin (Melatonin 3 Mg Tablet) 6 mg PO BEDTIME PRN PRN Reason: Insomnia Last Admin: 09/22/23 22:54 Dose: 6 mg Documented By: TIFFANIE Metoprolol Succinate (Metoprolol Succinate Er 50 Mg Tab.Er.24h) 50 mg PO DAILY [facility]; Protocol Last Admin: 09/26/23 08:42 Dose: 50 mg Documented By: INEZ Ondansetron HCl (Ondansetron Hcl 4 Mg/2 Ml Vial) 4 mg IVPUSH Q8H PRN PRN Reason: Nausea and Vomiting Risperidone (Risperidone 0.5 Mg Tablet) 0.5 mg PO BID [facility] Last Admin: 09/26/23 08:41 Dose: 0.5 mg Documented By: INEZ Sodium Chloride (0.9 % Sodium Chloride Flush 3 Ml Syringe) 3 ml IVFLUSH QSHIFT [facility] Last Admin: 09/26/23 08:46 Dose: 3 ml Documented By: INEZ Trazodone HCl (Trazodone Hcl 50 Mg Tablet) 50 mg PO BEDTIME [facility] Last Admin: 09/25/23 20:20 Dose: 50 mg Documented By: JUVE Labs 09/21/23 04:57 09/24/23 06:30 Labs: Laboratory Results - last 24 hr 09/25/23 09/25/23 09/26/23 16:32 19:34 08:18 POC Glucose 147 H 173 H 144 H 09/26/23 11:53 POC Glucose 172 H Assessment and Plan (1) Mood disorder: Status: Acute (2) Chest pain: Status: Acute (3) FELICIA (acute kidney injury): Status: Acute Plan 63-year-old female with pertinent history of chronic hypoxemic respiratory failure due to COPD, DANIEL/OHS on 2 L supplemental oxygen, congestive heart failure with reduced ejection fraction, CKD stage 3, morbid obesity, insulin-dependent diabetes mellitus, mood disorder, essential hypertension who presents to the emergency department for chest discomfort and anxiety like symptoms. #. Acute kidney injury on CKD stage III: Resolved status post IV fluids , avoid nephrotoxins and hypotension. #. Chest discomfort: Likely related to anxiety, Chest pain resolved, no recurrent symptoms, troponin negative, EKG showed no acute ischemic changes, history of ch. prolonged QT, D-dimer elevated, V/Q scan showed very low probability of pulmonary embolism. #. Generalized anxiety, uncontrolled: Seen by Psychiatry placed on Klonopin twice daily, BuSpar discontinued , appears less anxious , no somnolence, seen by OT for [place] and score 17/22 Patient will require assistance with IADLs, including financial assistance, to maximize safety at home no further acute care by OT warranted # bilateral shoulder pain/elbow pain : Improving, improved range of motion, likely osteoarthritis, continue Tylenol and [id number] exercises. #. Insulin-dependent diabetes mellitus: Stable blood sugars, no recurrent episode of hypoglycemia continue insulin sliding scale and Lantus low-dose b.i.d., home dose 45 b.i.d. #. Chronic hypoxemic respiratory failure due to COPD, DANIEL/ohs on 2 L supplemental oxygen: Continue home inhalers and CPAP at bedtime. #. Morbid Obesity: Counseled regarding diet and weight loss. #. Congestive heart failure with reduced ejection fraction: No acute exacerbation, Hold Bumex remains euvolemic . #. Essential hypertension: Stable BP Continue home antihypertensives isosorbide, hydralazine, metoprolol, continue to hold amlodipine and follow BP # disposition seen by Physical therapy they recommend short-term rehab with transition to long-term care DVT prophylaxis: Lovenox Full code Patient need continued inpatient hospitalization for close monitoring of kidney function, worsening anxiety, expert consultation, and safe disposition . Quality Stroke Does the patient have a stroke diagnosis?: No VTE Prior VTE?: No VTE Risk Level:: Medical - moderate - high VTE Device Contraindication: Treatment Not Indicated VTE Drug Contraindication: N/A - Med Ordered
[2023-09-26 16:00] VITALS: BP 126/93; PULSE 92; RESP 18; TEMP 37; O2SAT 98
[2023-09-26 16:54] LABS: Glucose, Whole Blood 139 mg/dL (60-115)
[2023-09-26 19:29] VITALS: BP 145/59; PULSE 99; RESP 16; TEMP 36.3; O2SAT 96
[2023-09-26 19:39] VITALS: PULSE 94; RESP 16; O2SAT 97
[2023-09-26 19:46] LABS: Glucose, Whole Blood 234 mg/dL (60-115)
[2023-09-26] MEDS: traZODone HCL 50 MG TABLET PO (20:20)
[2023-09-26] MEDS: Atorvastatin Calcium 10 MG TABLET PO (20:20)
[2023-09-27 04:00] VITALS: BP 119/58; PULSE 78; RESP 16; TEMP 36.1; O2SAT 96
[2023-09-27 07:18] VITALS: BP 126/62; PULSE 81; RESP 18; TEMP 36.7; O2SAT 97
[2023-09-27 07:40] LABS: Glucose, Whole Blood 131 mg/dL (60-115)
[2023-09-27] MEDS: hydrALAZINE HCl 25 MG TABLET PO ×2 (07:53→20:36)
[2023-09-27] MEDS: Gabapentin 400 MG CAPSULE PO ×2 (07:53→14:30)
[2023-09-27] MEDS: risperiDONE 0.5 MG TABLET PO ×2 (07:53→20:29)
[2023-09-27] MEDS: Aspirin Enteric Coated 81 MG TABLET.DR PO (07:53)
[2023-09-27] MEDS: DULoxetine HCl 30 MG CAPSULE.DR PO (07:53)
[2023-09-27] MEDS: cloNIDine HCL 0.1 MG TABLET PO ×3 (07:54→20:36)
[2023-09-27] MEDS: Enoxaparin Sodium 40 MG/0.4 ML SYRINGE SUBCUT (07:54)
[2023-09-27] MEDS: Metoprolol Succinate ER 50 MG TAB.ER.24H PO (07:54)
[2023-09-27] MEDS: Insulin Glargine,Hum.rec.anlog 100 UNIT/ML 10 ML VIAL 15 UNIT SUBCUT ×2 (07:54→22:32)
[2023-09-27] MEDS: Isosorbide Mononitrate 30 MG TAB.ER.24H PO (07:54)
[2023-09-27] MEDS: Acetaminophen 325 MG TABLET 650 MG PO (08:00)
[2023-09-27] MEDS: 0.9 % Sodium Chloride Flush 3 ML SYRINGE IVFLUSH ×3 (08:00→22:33)
--- NOTE | 2023-09-27 10:52 | HO.PM.IMPN ---
Subjective Subjective Date of Service: 09/27/23 Interval History: Feeling better less anxious has been ambulating in room with walker, motivated, less bilateral shoulder and elbow pain able to feed herself, no acute issues overnight. Review of Systems All other system reviewed and negative. Physical Exam Vital Signs: Vital Signs: Last Vital Signs Temp 98.0 F 09/27/23 07:18 Pulse 81 09/27/23 07:18 Resp 18 09/27/23 07:18 BP 126/62 09/27/23 07:18 Pulse Ox 97 09/27/23 07:18 O2 Del Method Nasal Cannula 09/27/23 07:18 O2 Flow Rate 2 09/27/23 07:18 BMI result Body Mass Index 53.4 Const: Other: General awake alert x3, in no acute distress.? Neck no JVD. CVS? regular rate rhythm, Respiratory lungs clear to auscultation, no respiratory distress, no wheeze, no rhonchi. Gastrointestinal abdomen soft, obese, non tender, bowel sounds audible, no guarding , no rigidity. Extremities no edema. Both shoulder no redness, no swelling, no bruising, better range of motion both shoulders and elbows. Neuro non focal Skin no rash Objective Data Active Medications Acetaminophen (Acetaminophen 325 Mg Tablet) 650 mg PO Q6H PRN PRN Reason: Pain, Mild (Pain Scale 1-3) Last Admin: 09/27/23 08:00 Dose: 650 mg Documented By: EJ Aspirin (Aspirin Enteric Coated 81 Mg Tablet.) 81 mg PO DAILY [facility] Last Admin: 09/27/23 07:53 Dose: 81 mg Documented By: EJ Atorvastatin Calcium (Atorvastatin Calcium 10 Mg Tablet) 10 mg PO BEDTIME [facility] Last Admin: 09/26/23 20:20 Dose: 10 mg Documented By: REGINALDO Clonidine HCl (Clonidine Hcl 0.1 Mg Tablet) 0.1 mg PO TID PRN; Protocol PRN Reason: hyperarousal, anxiety, panic Last Admin: 09/27/23 07:54 Dose: 0.1 mg Documented By: EJ Dextrose (Dextrose 50 % 25 Gm/50 Ml Syringe) 25 gm IVPUSH Q15M PRN; Protocol PRN Reason: per Hypoglycemia Standing Ord. Duloxetine HCl (Duloxetine Hcl 30 Mg Capsule.) 30 mg PO DAILY@0900 [facility] Last Admin: 09/27/23 07:53 Dose: 30 mg Documented By: EJ Enoxaparin Sodium (Enoxaparin Sodium 40 Mg/0.4 Ml Syringe) 40 mg SUBCUT DAILY [facility] Last Admin: 09/27/23 07:54 Dose: 40 mg Documented By: EJ Fluticasone Propionate (Fluticasone Propionate 100 Mcg Blst.W.Dev) 2 puff INHALE RBID [facility] Last Admin: 09/27/23 08:36 Dose: Not Given Documented By: PATRICIA Non-Admin Reason: Patient Refused Gabapentin (Gabapentin 400 Mg Capsule) 400 mg PO BID@0900,1500 [facility] Last Admin: 09/27/23 07:53 Dose: 400 mg Documented By: EJ Glucose (Glucose Gel 15 Gm Gel..Gram.) 15 gm PO Q15M PRN; Protocol PRN Reason: per Hypoglycemia Standing Ord. Hydralazine HCl (Hydralazine Hcl 25 Mg Tablet) 25 mg PO BID [facility]; Protocol Last Admin: 09/27/23 07:53 Dose: 25 mg Documented By: EJ Insulin Glargine (Insulin Glargine,Hum.Rec.Anlog 100 Unit/Ml 10 Ml Vial) 15 unit SUBCUT BID [facility] Last Admin: 09/27/23 07:54 Dose: 15 unit Documented By: EJ Insulin Human Lispro (Insulin Lispro 100 Unit/Ml 3 Ml Vial) 0 unit SUBCUT QIDACHS [facility]; Protocol Last Admin: 09/27/23 08:02 Dose: Not Given Documented By: EJ Non-Admin Reason: No Insulin Coverage Isosorbide Mononitrate (Isosorbide Mononitrate 30 Mg Tab.Er.24h) 30 mg PO DAILY [facility]; Protocol Last Admin: 09/27/23 07:54 Dose: 30 mg Documented By: EJ Meclizine HCl (Meclizine Hcl 25 Mg Tablet) 25 mg PO TID PRN PRN Reason: Vertigo Melatonin (Melatonin 3 Mg Tablet) 6 mg PO BEDTIME PRN PRN Reason: Insomnia Last Admin: 09/22/23 22:54 Dose: 6 mg Documented By: TIFFANIE Metoprolol Succinate (Metoprolol Succinate Er 50 Mg Tab.Er.24h) 50 mg PO DAILY [facility]; Protocol Last Admin: 09/27/23 07:54 Dose: 50 mg Documented By: EJ Ondansetron HCl (Ondansetron Hcl 4 Mg/2 Ml Vial) 4 mg IVPUSH Q8H PRN PRN Reason: Nausea and Vomiting Risperidone (Risperidone 0.5 Mg Tablet) 0.5 mg PO BID [facility] Last Admin: 09/27/23 07:53 Dose: 0.5 mg Documented By: EJ Sodium Chloride (0.9 % Sodium Chloride Flush 3 Ml Syringe) 3 ml IVFLUSH QSHIFT [facility] Last Admin: 09/27/23 08:00 Dose: 3 ml Documented By: EJ Trazodone HCl (Trazodone Hcl 50 Mg Tablet) 50 mg PO BEDTIME [facility] Last Admin: 09/26/23 20:20 Dose: 50 mg Documented By: REGINALDO Labs 09/21/23 04:57 09/24/23 06:30 Labs: Laboratory Results - last 24 hr 09/26/23 09/26/23 09/26/23 11:53 16:49 19:37 POC Glucose 172 H 139 H 234 H 09/27/23 07:26 POC Glucose 131 H Assessment and Plan (1) Mood disorder: Status: Acute (2) Chest pain: Status: Acute (3) FELICIA (acute kidney injury): Status: Acute Plan 63-year-old female with pertinent history of chronic hypoxemic respiratory failure due to COPD, DANIEL/OHS on 2 L supplemental oxygen, congestive heart failure with reduced ejection fraction, CKD stage 3, morbid obesity, insulin-dependent diabetes mellitus, mood disorder, essential hypertension who presents to the emergency department for chest discomfort and anxiety like symptoms. #. Acute kidney injury on CKD stage III: Resolved status post IV fluids , avoid nephrotoxins and hypotension. #. Chest discomfort: Likely related to anxiety, Chest pain resolved, no recurrent symptoms, troponin negative, EKG showed no acute ischemic changes, history of ch. prolonged QT, D-dimer elevated, V/Q scan showed very low probability of pulmonary embolism. #. Generalized anxiety, Seen by Psychiatry placed on Klonopin twice daily, BuSpar discontinued , appears less anxious today, no somnolence, seen by OT for [place] and score 17/22 Patient will require assistance with IADLs, including financial assistance, to maximize safety at home no further acute care by OT warranted # bilateral shoulder pain/elbow pain : Improving, better range of motion at elbows and shoulder, likely osteoarthritis, continue Tylenol and [id number] exercises. #. Insulin-dependent diabetes mellitus: Stable blood sugars, no recurrent episode of hypoglycemia continue insulin sliding scale and Lantus low-dose b.i.d., home dose 45 b.i.d. #. Chronic hypoxemic respiratory failure due to COPD, DANIEL/ohs on 2 L supplemental oxygen: Continue home inhalers and CPAP at bedtime. #. Morbid Obesity: Counseled regarding diet and weight loss. #. Congestive heart failure with reduced ejection fraction: No acute exacerbation, Hold Bumex remains euvolemic . #. Essential hypertension: Stable BP Continue home antihypertensives isosorbide, hydralazine, metoprolol, continue to hold amlodipine and follow BP # disposition seen by Physical therapy they recommend short-term rehab with transition to long-term care, encourage out of bed to ambulation daily, Will be transferred to short-term rehab at a.m. DVT prophylaxis: Lovenox Full code Patient need continued inpatient hospitalization for close monitoring of kidney function, anxiety, expert consultation, and safe disposition to rehab. Quality Stroke Does the patient have a stroke diagnosis?: No VTE Prior VTE?: No VTE Risk Level:: Medical - moderate - high VTE Device Contraindication: Treatment Not Indicated VTE Drug Contraindication: N/A - Med Ordered
[2023-09-27 11:02] LABS: Glucose, Whole Blood 202 mg/dL (60-115)
[2023-09-27] MEDS: Insulin Lispro 100 UNIT/ML 3 ML VIAL SUBCUT ×2 (11:41→16:38)
[2023-09-27 15:00] VITALS: BP 122/58; PULSE 78; RESP 18; TEMP 36.2; O2SAT 99
[2023-09-27 16:15] LABS: Glucose, Whole Blood 202 mg/dL (60-115)
[2023-09-27] MEDS: Milk of Magnesia 30 ML ORAL.SUSP PO (20:28)
[2023-09-27] MEDS: traZODone HCL 50 MG TABLET PO (20:29)
[2023-09-27] MEDS: Atorvastatin Calcium 10 MG TABLET PO (20:29)
[2023-09-27 20:35] VITALS: BP 134/85; PULSE 95; RESP 18; O2SAT 94
[2023-09-27] MEDS: bisacodyL 10 MG SUPP.RECT PR (21:59)
[2023-09-27 22:15] LABS: Glucose, Whole Blood 139 mg/dL (60-115)
[2023-09-28 03:19] VITALS: BP 148/60; PULSE 84; RESP 20; TEMP 36.2; O2SAT 98
[2023-09-28 07:06] VITALS: BP 136/71; PULSE 81; RESP 18; TEMP 36.8; O2SAT 97
[2023-09-28 07:29] LABS: Glucose, Whole Blood 145 mg/dL (60-115)
[2023-09-28] MEDS: Fluticasone Propionate 100 MCG BLST.W.DEV 2 PUFF INHALE (07:31)
[2023-09-28 07:33] VITALS: PULSE 79; RESP 20; O2SAT 98
[2023-09-28] MEDS: risperiDONE 0.5 MG TABLET PO (08:08)
[2023-09-28] MEDS: Metoprolol Succinate ER 50 MG TAB.ER.24H PO (08:09)
[2023-09-28] MEDS: Isosorbide Mononitrate 30 MG TAB.ER.24H PO (08:09)
[2023-09-28] MEDS: DULoxetine HCl 30 MG CAPSULE.DR PO (08:09)
[2023-09-28] MEDS: hydrALAZINE HCl 25 MG TABLET PO (08:09)
[2023-09-28] MEDS: Gabapentin 400 MG CAPSULE PO (08:09)
[2023-09-28] MEDS: Aspirin Enteric Coated 81 MG TABLET.DR PO (08:09)
[2023-09-28] MEDS: 0.9 % Sodium Chloride Flush 3 ML SYRINGE IVFLUSH (08:12)
[2023-09-28] MEDS: polyethylene glycoL 3350 17 GM POWD.PACK PO (08:13)
[2023-09-28] MEDS: Insulin Glargine,Hum.rec.anlog 100 UNIT/ML 10 ML VIAL 15 UNIT SUBCUT (08:13)
[2023-09-28] MEDS: Acetaminophen 325 MG TABLET 975 MG PO (08:15)
[2023-09-28] MEDS: Enoxaparin Sodium 40 MG/0.4 ML SYRINGE SUBCUT (08:17)
--- NOTE | 2023-09-28 09:10 | MHC.CLN ---
F/U DIET=DIABETIC 1800 KCAL, CARDIAC - APPROPRIATE. PER WOUND RN 09/21: STAGE III TO LEFT BUTTOCK; STAGE II TO RIGHT BUTTOCK. ENSURE MAX BID TO PROMOTE WOUND HEALING. SUPPLEMENT PROVIDES 300 KCALS, 60 G PROTEIN. INTAKE VARIABLE BUT USUALLY GOOD WITH MOST MEALS 75-100%. MONITOR PO INTAKE AND ENCOURAGE SUPPLEMENTS.
[2023-09-28] MEDS: cloNIDine HCL 0.1 MG TABLET PO (09:34)
[2023-09-28 11:29] LABS: Glucose, Whole Blood 233 mg/dL (60-115)
[2023-09-28] MEDS: Insulin Lispro 100 UNIT/ML 3 ML VIAL SUBCUT (11:50)
--- NOTE | 2023-09-28 12:37 | P.DS_ITS ---
DS: Providers Provider Date of Service: 09/28/23 Date of admission: 09/21/23 01:56 Primary care physician: Tavo Huber MD Consults: 09/21/23 03:01 Consult to Psychiatry Routine Consulting Provider: Psych Covering Reason for consultation: Uncontrolled anxiety 09/21/23 10:41 Consult to Psychiatry Routine Consulting Provider: Psych Covering Reason for consultation: anxiety Has provider been notified: No 09/22/23 06:59 Consult to Wound Care Routine Reason for consultation: sacral/coccy wound Has provider been notified: Yes DS: Diagnosis Discharge Diagnosis (1) Mood disorder: Status: Acute (2) Chest pain: Status: Acute (3) FELICIA (acute kidney injury): Status: Acute DS: Summary Hospital Course Hospital Course: History of presenting illness: Date of Service: 09/21/23 Chief Complaint: Chest pain This is a 63-year-old female with pertinent history of chronic hypoxemic respiratory failure due to COPD, DANIEL/OHS on 2 L supplemental oxygen, congestive heart failure with reduced ejection fraction, CKD stage 3, morbid obesity, insulin-dependent diabetes mellitus, mood disorder, essential hypertension who presents to the emergency department for chest discomfort and anxiety like symptoms. Patient states she started feeling anxious on the day of presentation. She had sudden onset of midsternal chest discomfort which worsened with deep inspiration. She also felt like she could not breathe which lasted momentarily. No fever, chills, palpitations, abdominal pain, changes in urinary or bowel habits. Of note, patient was admitted on 04/27/2023 with FELICIA and discharged on 04/29/2023. In the emergency department, patient's creatinine and D-dimer found to be elevated. Resuscitated with IV crystalloids> Hospital course: 63-year-old female with pertinent history of chronic hypoxemic respiratory failure due to COPD, DANIEL/OHS on 2 L supplemental oxygen, congestive heart failure with reduced ejection fraction, CKD stage 3, morbid obesity, insulin- dependent diabetes mellitus, mood disorder, essential hypertension who presents to the emergency department for chest discomfort and anxiety like symptoms and noted to have multiple medical issues. #. Acute kidney injury on CKD stage III: Likely prerenal, diuretics held treated with IV fluids renal function normalized , dose of Bumex reduced to 0.5 mg daily. #. Chest discomfort: Likely related to anxiety, Chest pain resolved, no recurrent symptoms, troponin negative, EKG showed no acute ischemic changes, history of ch. prolonged QT, Noted to have elevated D-dimer, V/Q scan obtained that showed low probability for pulmonary embolus. #. Generalized anxiety, Seen by Psychiatry placed on Klonopin twice daily, BuSpar discontinued , appears less anxious , no somnolence, seen by OT for Addison and score 17/22 Patient will require assistance with IADLs, including financial assistance, to maximize safety at home no further acute care by OT warranted # bilateral shoulder pain/elbow pain : Improving likely related to osteoarthritis recommend to take Tylenol and [id number] exercises. #. Insulin-dependent diabetes mellitus: Noted to have hypoglycemia, therefore dose of Lantus reduced to 18 units b.i.d. continue diabetic diet blood sugar monitoring and insulin sliding scale . #. Chronic hypoxemic respiratory failure due to COPD, DANIEL/ohs on 2 L supplemental oxygen: No acute exacerbation noted Continue home inhalers and CPAP at bedtime. #. Morbid Obesity: Counseled regarding diet and weight loss. #. Congestive heart failure with reduced ejection fraction: No acute exacerbation noted continue low-dose Bumex appears euvolemic. #. Essential hypertension: Stable BP Continue home antihypertensives isosorbide, hydralazine, metoprolol, and prazosin, amlodipine discontinued. Time Attestation Discharge Coordination Time (in mins): 36 Quality: Safe Use of Opioids Does Pt have an Active Cancer Diagnosis on the Problem List?: No Quality: Stroke Does the patient have a stroke diagnosis?: No Physical Exam Vital Signs: Vital Signs: Last Vital Signs Temp 98.2 F 09/28/23 07:06 Pulse 79 09/28/23 07:33 Resp 20 09/28/23 07:33 BP 136/71 09/28/23 07:06 Pulse Ox 97 09/28/23 07:06 O2 Del Method Room Air 09/28/23 07:06 O2 Flow Rate 2 09/28/23 03:19 BMI result Body Mass Index 53.4 Const: Other: General awake alert x3, in no acute distress.? Neck no JVD. CVS? regular rate rhythm, Respiratory lungs clear to auscultation, no respiratory distress, no wheeze, no rhonchi. Gastrointestinal abdomen soft, obese, non tender, bowel sounds audible, no guarding , no rigidity. Extremities no edema. Both shoulder no redness, no swelling, no bruising, better range of motion both shoulders and elbows. Neuro non focal Skin no rash DS: Data Data Completed and Pending Completed studies during hospitalization [Text1]: Procedures Assistance with Respiratory Ventilation, Less than 24 Consecutive Hours, Continuous Positive Airway Pressure (12/11/20) Excision of Buttock Subcutaneous Tissue and Fascia, Open Approach (04/20/22) Extirpation of Matter from Rectum, Via Natural or Artificial Opening (04/20/22) Labs on day of discharge: Laboratory Results - last 24 hr 09/27/23 09/27/23 09/28/23 16:12 22:11 07:11 POC Glucose 202 H 139 H 145 H 09/28/23 11:14 POC Glucose 233 H Discharge Plan Discharge Anticipated Discharge Date/Time: 09/28/23 12:17 Patient Disposition: Xfer SNF Discharge Diagnosis: Acute on chronic kidney disease stage 3 Noncardiac chest pain Generalized anxiety Insulin-dependent diabetes mellitus Chronic hypoxic respiratory failure Referrals: Tavo Huber MD [Primary Care Provider] - 1 Week Discharge Medications: New clonazepam [Klonopin] 0.5 mg tablet 0.5 mg PO BID Qty: 60 0RF Continued (DME) blood-glucose meter [FreeStyle Lite Meter] Kit See Rx Instructions .Route Qty: 1 0RF Rx Instructions: As directed checks POC 4 X/day insulin lispro [Humalog U-100 Insulin] 100 unit/mL Solution See Protocol subcut QIDACHS Qty: 1 0RF Protocol: Insulin Correction Scale Less than or equal to 110 ---- Give (units): 0 111 to 150 Give (units): 0 151 to 200 Give (units): 2 201 to 250 Give (units): 4 251 to 300 Give (units): 6 301 to 350 Give (units): 8 Greater than 350 Give (units): 10 Call MD if Blood Glucose > : 350 Rx Instructions: sliding scale aspirin 81 mg tablet,delayed release (DR/EC) 81 mg PO DAILY simvastatin 20 mg tablet 20 mg PO BEDTIME fluticasone propionate [Flovent HFA] 110 mcg/actuation HFA aerosol inhaler 2 puff inhalation BID gabapentin 400 mg Capsule 400 mg PO BID@0900,1500 nystatin 100,000 unit/gram Powder 1 appl TOPICAL BID PRN (Reason: Rash) Protocol: Apply to: Apply to: under breasts, around groin Rx Instructions: apply to groin area, and under breasts (DME) insulin syringe-needle U-100 [BD Insulin Syringe Ultra-Fine] 1 mL 31 gauge x 5/16 syringe MISCELLANEOUS QID isosorbide mononitrate 30 mg tablet extended release 24 hr 1 tab PO DAILY clonidine HCl 0.1 mg Tablet 0.1 mg PO TID PRN (Reason: hyperarousal, anxiety, panic) Qty: 90 0RF Protocol: Hold for SBP< HOLD for SBP < : 90 hydralazine 25 mg Tablet 25 mg PO BID Qty: 60 0RF Protocol: Hold for SBP< HOLD for SBP < : 90 metoprolol succinate 50 mg tablet extended release 24 hr 50 mg PO DAILY prazosin 1 mg capsule 1 mg PO BEDTIME meclizine 25 mg tablet 25 mg PO TID PRN (Reason: Vertigo) risperidone 0.5 mg tablet 0.5 mg PO BID duloxetine 30 mg capsule,delayed release(DR/EC) 30 mg PO QAM trazodone 50 mg tablet 50 mg PO BEDTIME (DME) FreeStyle Lite Strips Strip See Rx Instructions .ROUTE BID Qty: 10 Rx Instructions: As directed (DME) lancets [FreeStyle Lancets] 28 gauge misc See Rx Instructions .ROUTE QID Qty: 100 Rx Instructions: As directed (DME) insulin syringe-needle U-100 [BD Insulin Syringe Ultra-Fine] 1 mL 31 gauge x 5/16 syringe See Rx Instructions .ROUTE QID Qty: 10 Rx Instructions: As directed Changed insulin glargine [Lantus U-100 Insulin] 100 unit/mL solution 18 unit subcut BID Qty: 10 0RF bumetanide 1 mg Tablet 0.5 mg PO BEDTIME Qty: 30 0RF Protocol: Hold for SBP< HOLD for SBP < : 90 Discontinued buspirone 15 mg tablet 15 mg PO TID lorazepam [Ativan] 0.5 mg tablet 0.5 mg PO BID PRN (Reason: anxiety) Qty: 6 0RF amlodipine 10 mg Tablet 10 mg PO DAILY Discharge Orders: Discharge Order (Routine); Ordered 09/28/23 Ordered By: Davion Mccallum Diet: Diabetic diet Activity on Discharge: As tolerated Stand Alone Forms: Patient Portal Discharge page Care Plan Goals: Generalized anxiety continue Klonopin 0.5 mg b.i.d. and all other medications as prescribed outpatient follow-up with therapist Monitor blood sugar closely dose of Lantus reduced to 18 units b.i.d. from 45 units b.i.d. continue insulin sliding scale Acute kidney injury resolved dose of Bumex reduced to 0.5 mg daily Recommend ambulation as tolerated Noncardiac chest pain resolved Being discharged to short-term rehab Health Concerns: Continue all home medications as prescribed Plan of Treatment: Outpatient follow-up with primary care physician Assessment: As above
--- NOTE | 2023-09-28 12:50 | MHC.CM.PN ---
Patient is discharged to [facility] for STR. 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 Spoke with patients dtr Ursula. She agrees that this discharge is the only safe option at this time. She spoke with her Mother. T/W provided emotional support and encouragement. The facility is aware that the patient is nervous about the transfer. Be n the Liason will greet Carisa upon arrival.
== END 2023-09-28 15:30 | disposition skilled nursing facility (03) | DRG 469 ==
LOC: HO.ED 19:48 → HO.EDOVER 09-21 01:59 → HO.S3 09-21 08:35
PROVIDERS: Physician Assistant; Admitting Provider Student in an Organized Health Care Education/Training Program; Emergency Provider Internal Medicine; PCP Internal Medicine; Visit Provider Hospitalist
DX: N17.9 Acute kidney failure, unspecified (principal); E11.649 Type 2 diabetes mellitus with hypoglycemia without coma; J96.11 Chronic respiratory failure with hypoxia; I13.0 Hypertensive heart and chronic kidney disease with heart failure and stage 1 through stage 4 chronic kidney disease, or unspecified chronic kidney disease; E11.22 Type 2 diabetes mellitus with diabetic chronic kidney disease; E66.2 Morbid (severe) obesity with alveolar hypoventilation; M19.012 Primary osteoarthritis, left shoulder; M19.011 Primary osteoarthritis, right shoulder; F41.1 Generalized anxiety disorder; F39 Unspecified mood [affective] disorder; N18.30 Chronic kidney disease, stage 3 unspecified; I50.22 Chronic systolic (congestive) heart failure; Z99.81 Dependence on supplemental oxygen; Z68.43 Body mass index [BMI] 50.0-59.9, adult; Z87.891 Personal history of nicotine dependence; Z79.51 Long term (current) use of inhaled steroids; Z79.4 Long term (current) use of insulin; Z79.899 Other long term (current) drug therapy
CPT/HCPCS: 36415; 71045; 78580; 80048; 80053; 81001; 82570; 82947; 83036; 83735; 83880; 84484; 84540; 85025; 85027; 85379; 85610; 85730; 93005; 97162; 97166; 97530; 99221; 99285; A9540; J1650

== ENCOUNTER → 2023-09-20 20:59 | Outpatient (BNV) | payer OTHER, SELFPAY | PROVIDERS: Admitting Provider Student in an Organized Health Care Education/Training Program; Emergency Provider Internal Medicine; PCP Internal Medicine; Visit Provider Internal Medicine Cardiovascular Disease | DX: I45.81 Long QT syndrome (principal); R07.9 Chest pain, unspecified | CPT/HCPCS: 93010 ==

== ENCOUNTER 2023-09-21 01:56 | Outpatient (BNV) | payer OTHER, SELFPAY | END 2023-09-23 15:49 | PROVIDERS: Admitting Provider Student in an Organized Health Care Education/Training Program; Emergency Provider Internal Medicine; PCP Internal Medicine; Visit Provider Internal Medicine Cardiovascular Disease | DX: I49.3 Ventricular premature depolarization (principal) | CPT/HCPCS: 93010 ==

== ENCOUNTER → 2023-09-21 01:56 | Outpatient (BNV) | payer OTHER, SELFPAY | PROVIDERS: Admitting Provider Student in an Organized Health Care Education/Training Program; Emergency Provider Internal Medicine; PCP Internal Medicine; Visit Provider Social Worker | DX: F39 Unspecified mood [affective] disorder (principal); N17.9 Acute kidney failure, unspecified; R07.9 Chest pain, unspecified | CPT/HCPCS: 99232 ==

== ENCOUNTER → 2023-09-21 01:56 | Outpatient (BNV) | payer OTHER, SELFPAY | PROVIDERS: Admitting Provider Student in an Organized Health Care Education/Training Program; Emergency Provider Internal Medicine; PCP Internal Medicine; Visit Provider Student in an Organized Health Care Education/Training Program | DX: N17.9 Acute kidney failure, unspecified (principal); F39 Unspecified mood [affective] disorder; R07.9 Chest pain, unspecified | CPT/HCPCS: 99223; 99232; 99233; 99239; 99499 ==

== ENCOUNTER 2023-10-06 12:52 | Outpatient (RCR) | payer OTHER, SELFPAY | END 2024-03-24 13:25 | disposition hospice, home (50) | LOC: HO.WCC 12:52 | PROVIDERS: PCP Internal Medicine; Visit Provider Physician Assistant | DX: E11.622 Type 2 diabetes mellitus with other skin ulcer (principal); L98.411 Non-pressure chronic ulcer of buttock limited to breakdown of skin; E11.40 Type 2 diabetes mellitus with diabetic neuropathy, unspecified; L30.9 Dermatitis, unspecified; R32 Unspecified urinary incontinence; Z87.891 Personal history of nicotine dependence | CPT/HCPCS: 97597 ==

== ENCOUNTER 2023-10-19 12:40 | Outpatient (AMB) | payer OTHER, SELFPAY ==
[2023-10-19 12:54] VITALS: BP 110/60; PULSE 90; BMI 48.5
--- NOTE | 2023-10-19 12:54 | A.OFFVIS_ITS ---
Intake Vital Signs 10/19/23 12:54 Height 5 ft 2 in Weight 265 lb 6.985 oz BMI 48.5 BP 110/60 Blood Pressure Location Rt radial Position Sitting Pulse 90 Pulse Source Pulse Oximeter Intake Visit Reasons: Preop Amber Scott/ CTR 10/25 Intake Note: pt states that she its doing fine. 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 Accompanied by: Self / Same As Patient Allergies ibuprofen Allergy (Intermediate, Verified 08/11/23 11:00) vomiting, itching acetaminophen [Tylenol] Allergy (Unknown, Verified 08/11/23 11:00) Unknown codeine Adverse Reaction (Severe, Verified 08/11/23 11:00) Anaphylaxis morphine Adverse Reaction (Intermediate, Verified 05/15/23 20:51) vomiting vancomycin Adverse Reaction (Intermediate, Verified 05/15/23 20:51) Itching Medication List - Last Reconciled 10/19/23 by Orlando Hebert MD aspirin 81 mg PO DAILY blood sugar diagnostic (FreeStyle Lite Strips) As directed blood-glucose meter (FreeStyle Lite Meter kit) As directed checks POC 4 X/day bumetanide 0.5 mg See Protocol PO BEDTIME clonazepam (Klonopin) 0.5 mg PO BID clonidine HCl 0.1 mg See Protocol PO TID PRN duloxetine 30 mg PO QAM fluticasone propionate 110 mcg/actuation (Flovent HFA) 2 puffs inhalation BID gabapentin 400 mg PO BID@0900,1500 hydralazine 25 mg See Protocol PO BID insulin glargine (Lantus U-100 Insulin) 18 units (0.18 mL) subcut BID insulin lispro (Humalog U-100 Insulin) See Protocol units subcut QIDACHS insulin syringe-needle U-100 (BD Insulin Syringe Ultra-Fine) insulin syringe-needle U-100 (BD Insulin Syringe Ultra-Fine) As directed isosorbide mononitrate ER 1 tab PO DAILY lancets (FreeStyle Lancets) As directed meclizine 25 mg PO TID PRN metoprolol succinate ER 50 mg PO DAILY nystatin 1 appl See Protocol topical BID PRN prazosin 1 mg PO BEDTIME risperidone 0.5 mg PO BID simvastatin 20 mg PO BEDTIME trazodone 50 mg PO BEDTIME HPI HPI Comments History of Present Illness Details [age] year female who is here for follow-up. She was last seen in 2020 when she was in congestive heart failure in the hospital and had EF of 40 45% by echocardiography. She is since then has not been seen by me and got admitted 1 more time in the hospital and was seen by our service. She has not followed up in the clinic. She is now presenting because she needs cataract surgery. She had recent admission with acute kidney injury. She has diabetes, diabetic neuropathy and mood disorder. She is quite emotional and tearful and saying that she is quite depressed and has significant trouble sleeping at night. She is denying any chest pains. She has some shortness of breath with activity. She is saying that she needs cataract surgery and carpal tunnel surgery. [facility] Medical History Uncontrolled type 2 diabetes mellitus with hyperglycemia FELICIA (acute kidney injury) Abdominal pain Constipation Chronic respiratory failure with hypoxia Stercoral colitis Decubitus ulcer Hypoxia CHF exacerbation MDD (major depressive disorder), recurrent episode, moderate Adjustment disorder with mixed anxiety and depressed mood Panic disorder Cellulitis of right lower extremity Stasis dermatitis of both legs DANIEL (obstructive sleep apnea) Asthma Hyperglycemia due to diabetes mellitus COPD (chronic obstructive pulmonary disease) Congestive heart failure Obesity hypoventilation syndrome CKD (chronic kidney disease) stage 3, GFR 30-59 ml/min NICM (nonischemic cardiomyopathy) Acute on chronic combined systolic and diastolic CHF (congestive heart failure) Morbid obesity Diabetic neuropathy, painful Chronic pain High cholesterol Depression Hypertension Diabetes Surgical History History of surgery Hx of cholecystectomy Family History Mother HTN (hypertension) Diabetes CAD (coronary artery disease) Father HTN (hypertension) Diabetes CAD (coronary artery disease) Maternal Grandmother CAD (coronary artery disease) Social History Household Members: None Household Members Other:: GRANDSON Housing: Condominium Housing 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 Do you presently have visiting nurse or other home services: Yes ([facility] twice daily) Unable to assess alcohol history related to: Unable to respond and Refusing to respond Alcohol intake: former Comment: 1:1 Patient Tobacco Use Status: Former Tobacco user Quit Date: 1999 Tobacco use type: Cigarette Years Smoked: 38 e-Cigarette/Vaping Use: Never Used Second Hand Smoke Exposure: No Substance Use Type: Former Substance User Advance Directives Date on File: 12/19/20 service: No Current occupational status: disabled Review of Systems Const Denies chills, Denies fatigue, Denies fever(s), Denies frequent falls, Denies weakness, Denies weight gain and Denies weight loss ENT Denies dizziness Card Denies chest pain, Denies leg edema, Denies lightheadedness, Denies palpitations, Denies dyspnea and Denies dyspnea on exertion Resp Denies cough, Denies dyspnea and Denies dyspnea on exertion GI Denies hematochezia Musc Denies abnormal gait, Denies muscle weakness, Denies numbness, Denies radiating pain into limb and Denies tingling Neuro Denies abnormal gait, Denies dizziness, Denies frequent falls, Denies numbness, Denies tingling and Denies weakness Endo Denies fatigue and Denies palpitations Physical Exam Vital Signs: Last Vital Signs Pulse 90 10/19/23 12:54 BP 110/60 10/19/23 12:54 BMI result Body Mass Index 48.5 GENERAL APPEARANCE: Emotional and tearful. NECK: no jugular venous distention. SKIN: no suspicious lesions, warm and dry. HEART: no murmurs, regular rate and rhythm. LUNGS: clear to auscultation bilaterally. ABDOMEN: soft, nontender. EXTREMITIES: no edema. PERIPHERAL PULSES: equal. NEUROLOGIC: No gross deficits, AAO X 3 Assessment & Plan Assessment & Plan (1) Preop cardiovascular exam: Code(s): Z01.810 - Encounter for preprocedural cardiovascular examination (2) Chronic diastolic heart failure: Code(s): I50.32 - Chronic diastolic (congestive) heart failure Plan Pleasant 63 year female who is here for follow-up. She has background of diastolic heart failure and kidney disease. She also has diabetes and diabetic neuropathy and mood disorder. She is quite emotional and tearful. She needs cataract surgery which is a low risk surgery and can be done without significant risk. She also needs carpal tunnel surgery. If this is being done under general anesthesia then she is intermediate risk for perioperative cardiovascular complications. She also has respiratory issues and she may need to reassess from pulmonary point of view 2. Currently euvolemic and not in heart failure. She has not had any recent echocardiography and recommend doing repeat echocardiogram. Echo can be done after surgery and overall she is intermediate risk and can proceed with surgery. Thank you for allowing me to participate in the care of your patient. Please feel free to contact me if you have any questions. Coding Level of Care Code Est Pt Level 4 (05379) Diagnoses Preop cardiovascular exam Z01.810 Chronic diastolic heart failure I50.32
== END 2023-10-19 13:28 | disposition home or self-care (01) ==
PROVIDERS: PCP Internal Medicine; Visit Provider Internal Medicine Cardiovascular Disease
DX: Z01.810 Encounter for preprocedural cardiovascular examination (principal); I50.32 Chronic diastolic (congestive) heart failure
CPT/HCPCS: 99214

== ENCOUNTER → 2023-10-19 12:40 | Outpatient (BNVA) | payer OTHER, SELFPAY | PROVIDERS: PCP Internal Medicine; Visit Provider Internal Medicine Cardiovascular Disease | DX: Z01.810 Encounter for preprocedural cardiovascular examination (principal); I50.32 Chronic diastolic (congestive) heart failure | CPT/HCPCS: 99212 ==

== ENCOUNTER 2023-11-04 10:44 | Outpatient (AMB) | payer OTHER, SELFPAY ==
[2023-11-04 11:21] VITALS: BMI 48.5
--- NOTE | 2023-11-04 11:21 | MHC.OFFVIS ---
Intake Vital Signs 11/04/23 11:21 Height 5 ft 2 in Weight 265 lb BMI 48.5 Intake Visit Reasons: Pre Op LT cubital ankita rel vs trans/CTR 11/16/23 AR Intake Note: Lupis 63 yr old female presents today for her pre-op visit for her left hand carpal and cubital tunnel release schedule fro 11/16/23. Allergies ibuprofen Allergy (Intermediate, Verified 11/04/23 11:22) vomiting, itching acetaminophen [Tylenol] Allergy (Unknown, Verified 11/04/23 11:22) Unknown codeine Adverse Reaction (Severe, Verified 11/04/23 11:22) Anaphylaxis morphine Adverse Reaction (Intermediate, Verified 11/04/23 11:22) vomiting vancomycin Adverse Reaction (Intermediate, Verified 11/04/23 11:22) Itching HPI Pre Op LT cubital ankita rel vs trans/CTR 11/16/23 AR HPI Details Lupis is a 63 year old right hand dominant woman who returns to discuss her left carpal tunnel & cubital tunnel syndrome. She complains of dense numbness in all her fingers bilaterally. She says her left side is worse. She has difficulty using a pen to sign her name or to write She says she woke up recently and felt short of breath. She has a hx of panic attacks & COPD. She became tearful in clinic today and said she missed her mother. She says she does not work, and that she is not able to do anything around the house. She is a Diabetic, which is well controlled She says that she has a heart condition and sees a fbi field agent. [facility] Medical History Uncontrolled type 2 diabetes mellitus with hyperglycemia FELICIA (acute kidney injury) Abdominal pain Constipation Chronic respiratory failure with hypoxia Stercoral colitis Decubitus ulcer Hypoxia CHF exacerbation MDD (major depressive disorder), recurrent episode, moderate Adjustment disorder with mixed anxiety and depressed mood Panic disorder Cellulitis of right lower extremity Stasis dermatitis of both legs DANIEL (obstructive sleep apnea) Asthma Hyperglycemia due to diabetes mellitus COPD (chronic obstructive pulmonary disease) Congestive heart failure Obesity hypoventilation syndrome CKD (chronic kidney disease) stage 3, GFR 30-59 ml/min NICM (nonischemic cardiomyopathy) Acute on chronic combined systolic and diastolic CHF (congestive heart failure) Morbid obesity Diabetic neuropathy, painful Chronic pain High cholesterol Depression Hypertension Diabetes Surgical History History of surgery Hx of cholecystectomy Family History Mother HTN (hypertension) Diabetes CAD (coronary artery disease) Father HTN (hypertension) Diabetes CAD (coronary artery disease) Maternal Grandmother CAD (coronary artery disease) Social History Household Members: None Household Members Other:: GRANDSON Housing: Condominium 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 Do you presently have visiting nurse or other home services: Yes ([facility] twice daily) Unable to assess alcohol history related to: Unable to respond and Refusing to respond Alcohol intake: former Comment: 1:1 Patient Tobacco Use Status: Former Tobacco user Quit Date: 1999 Tobacco use type: Cigarette Years Smoked: 38 e-Cigarette/Vaping Use: Never Used Second Hand Smoke Exposure: No Substance Use Type: Former Substance User Advance Directives Date on File: 12/19/20 service: No Current occupational status: disabled Physical Exam Vital Signs: BMI result Body Mass Index 48.5 Extrem Other: Evaluation of Bilateral Upper Extremity: The patient is alert, oriented. She was distressed and somewhat tearful today in clinic She ambulates with a walker which she has with her today. Neuro: Dense numbness in all of the digits of both hands. She said she was unable to do a finger cross bilaterally, but at least on the left she was able to abduct and adduct her fingers. Vascular: Cap refill brisk ROM: She was able to make a weak fist and extend all her digits Nerve Conduction Study: Severe end stage carpal tunnel syndrome on the right Moderately severe carpal tunnel syndrome on the left Diffuse sensory-motor peripheral neuropathy EMG of the right C5-T1 innervated muscles consistent with denervation of th APB muscles consistent with severe median neuropathy. Denervation in the ulnar innervated muscles consistent with severe ulnar neuropathy on the right Dr. Sanchez 02/18/23 Assessment & Plan Assessment & Plan (1) Carpal tunnel syndrome of left wrist: Code(s): G56.02 - Carpal tunnel syndrome, left upper limb (2) Cubital tunnel syndrome on left: Code(s): G56.22 - Lesion of ulnar nerve, left upper limb (3) Carpal tunnel syndrome of right wrist: Code(s): G56.01 - Carpal tunnel syndrome, right upper limb (4) Cubital tunnel syndrome on right: Code(s): G56.21 - Lesion of ulnar nerve, right upper limb (5) Diabetes: Code(s): E11.9 - Type 2 diabetes mellitus without complications (6) Diabetic neuropathy, painful: Code(s): E11.40 - Type 2 diabetes mellitus with diabetic neuropathy, unspecified (7) Chronic diastolic heart failure: Code(s): I50.32 - Chronic diastolic (congestive) heart failure Plan Assessment & Plan: 1. Left Carpal tunnel syndrome, moderate-severe With dense numbness 2. Left cubital tunnel syndrome, based on history and PE With dense numbness Negative on NCS I educated her about these conditions I discussed operative and non-operative treatment options The patient would like to proceed with surgery for the left hand which bothers her the most. The risks and benefits of operative treatment were discussed with the patient and the patient wishes to proceed with surgery. These risks include, but are not limited to risk of damage to blood vessels, nerves, tendons, infection, recurrence, incomplete relief of preoperative symptoms, persistent pain, possible need for further surgery and the risks associated with regional blocks and anesthesia. The plan is to take the patient to the operating room on 11/16/23 for the following procedures: 1. Left carpal tunnel release, under general 2. Left cubital tunnel release versus transposition, under general All of the preoperative paperwork including the consent was filled out today. All the patient's questions were answered. She is a Diabetic, her most recent HgA1c was 6.0% on 09/24/23 She has a hx of CKD, CHF, asthma, panic disorder, and depression She was seen for cardiac clearance, and deemed intermediate risk by her Warehouse Handler She also says that she has COPD and recently woke up with some SOB She also has a history of panic attacks. 3. Right Carpal tunnel syndrome, severe end-stage With dense numbness 4. Right Cubital tunnel syndrome, severe With dense numbness She will follow up to discuss treatment when she has recovered from her left hand surgery Scribed for Amber Scott MD by Stanley Chisholm, medical i d sales, on 11/04/23 at 11:30 AM, EST. Coding Level of Care Code Est Pt Level 4 (49432) Diagnoses Carpal tunnel syndrome of left wrist G56.02 Cubital tunnel syndrome on left G56.22 Carpal tunnel syndrome of right wrist G56.01 Cubital tunnel syndrome on right G56.21 Diabetes E11.9 Diabetic neuropathy, painful E11.40 Chronic diastolic heart failure I50.32
== END 2023-11-04 11:33 | disposition home or self-care (01) ==
PROVIDERS: PCP Internal Medicine; Visit Provider Orthopaedic Surgery
DX: G56.03 Carpal tunnel syndrome, bilateral upper limbs (principal); G56.23 Lesion of ulnar nerve, bilateral upper limbs; E11.40 Type 2 diabetes mellitus with diabetic neuropathy, unspecified; I50.32 Chronic diastolic (congestive) heart failure
CPT/HCPCS: 99214

== ENCOUNTER → 2023-11-04 10:44 | Outpatient (BNVA) | payer OTHER, SELFPAY | PROVIDERS: PCP Internal Medicine; Visit Provider Orthopaedic Surgery | DX: G56.03 Carpal tunnel syndrome, bilateral upper limbs (principal); G56.23 Lesion of ulnar nerve, bilateral upper limbs; E11.40 Type 2 diabetes mellitus with diabetic neuropathy, unspecified; I50.32 Chronic diastolic (congestive) heart failure | CPT/HCPCS: 99212 ==

== ENCOUNTER 2023-11-09 11:53 | Emergency (ER) | payer OTHER, SELFPAY ==
--- NOTE | 2023-11-09 | ECG_ITS ---
Test Reason : CHEST PAIN Blood Pressure : / mmHG Vent. Rate : 087 BPM Atrial Rate : 087 BPM P-R Int : 148 ms QRS Dur : 100 ms QT Int : 388 ms P-R-T Axes : 074 014 069 degrees QTc Int : 466 ms Sinus rhythm with Premature ventricular complexes Otherwise normal ECG When compared with ECG of 23-SEP-2023 15:49, No significant changes seen Referred By: Generic ED Physician Electronically Signed By:GARTH RECINOS MD
--- NOTE | ~2023-11-09 | XR_ITS ---
EXAMINATION: XR CHEST CLINICAL INFORMATION: Chest tightness COMPARISON: Chest 09/20/2023, 04/27/2023, 11/23/2020 TECHNIQUE: 2 views of the chest were obtained. FINDINGS: The lungs are well expanded. There is increased streaky opacity in the right lower lobe consistent with atelectasis and/or pneumonia. There is stable marked enlargement of the cardiac silhouette. There is blunting of the posterior sulci consistent with pleural thickening versus mild pleural effusions. No interstitial pulmonary edema. Calcification of the thoracic arch indicative of atherosclerotic disease. No acute osseous abnormality. XR/XR chest 2V IMPRESSION: 1. Right lower lobe atelectasis and/or pneumonia. 2. Blunting of the posterior sulci consistent with pleural thickening versus mild pleural effusions.
[2023-11-09 12:03] VITALS: BP 105/49; PULSE 96; RESP 20; TEMP 36.4; O2SAT 93; BMI 40.7
--- NOTE | 2023-11-09 12:03 | ED.CHESTPAIN ---
HPI - Chest Pain General Chief Complaint: Chest Pain Stated Complaint: chest tightness Time Seen by Provider: 11/09/23 17:19 Source: patient and other (Primary care doctor) Mode of arrival: wheelchair Limitations: no limitations History of Present Illness HPI narrative: 63 yo female with pmh DM, CHF, asthma, oxygen dependent, Decubitus ulcer., anxiety with chest tightness since 6am. Went to Dr Huber and sent to the ER. Patient reports nonproductive dry cough and bilateral lower leg swelling. She is taking Bumex 1 mg every other day. She has no shortness of breath, no exertional symptoms, no leg pain, no fevers, chills, vomiting, diaphoresis, diarrhea, abdominal pain. Related Data Home Medications ?Medication ?Instructions ?Recorded ?Confirmed aspirin 81 mg tablet,delayed 81 mg PO DAILY 11/23/20 11/06/23 release fluticasone propionate 110 2 puff inhalation BID 11/23/20 11/06/23 mcg/actuation HFA aerosol inhaler (Flovent HFA) simvastatin 20 mg tablet 20 mg PO BEDTIME 11/23/20 11/06/23 blood sugar diagnostic (FreeStyle #10 ea 06/25/22 03/26/23 Lite Strips) insulin syringe-needle U-100 1 mL #10 ea 06/25/22 03/26/23 31 gauge x 5/16 (BD Insulin Syringe Ultra-Fine) lancets 28 gauge (FreeStyle #100 ea 06/25/22 03/26/23 Lancets) gabapentin 400 mg capsule 400 mg PO BID@0900,1500 09/08/22 11/06/23 nystatin 100,000 unit/gram topical 1 appl topical BID PRN Rash 09/08/22 11/06/23 powder insulin syringe-needle U-100 1 mL 09/27/22 03/26/23 31 gauge x 5/16 (BD Insulin Syringe Ultra-Fine) isosorbide mononitrate 30 mg 1 tab PO DAILY 09/28/22 11/06/23 tablet,extended release 24 hr trazodone 50 mg tablet 50 mg PO BEDTIME 04/27/23 11/06/23 duloxetine 30 mg capsule,delayed 30 mg PO QAM 09/21/23 11/06/23 release meclizine 25 mg tablet 25 mg PO TID PRN Vertigo 09/21/23 11/06/23 metoprolol succinate 50 mg 50 mg PO DAILY 09/21/23 11/06/23 tablet,extended release 24 hr prazosin 1 mg capsule 1 mg PO BEDTIME 09/21/23 11/06/23 risperidone 0.5 mg tablet 0.5 mg PO BID 09/21/23 11/06/23 Previous Rx's ?Medication ?Instructions ?Recorded insulin lispro 100 unit/mL See Protocol subcut QIDACHS #1 mL 01/16/21 subcutaneous solution (Humalog U-100 Insulin) clonidine HCl 0.1 mg tablet 0.1 mg PO TID PRN hyperarousal, 04/01/22 anxiety, panic #90 tabs hydralazine 25 mg tablet 25 mg PO BID #60 tabs 04/08/22 blood-glucose meter (FreeStyle #1 ea 09/02/22 Lite Meter kit) bumetanide 1 mg tablet 0.5 mg PO BEDTIME #30 tabs 09/28/23 clonazepam 0.5 mg tablet (Klonopin) 0.5 mg PO BID #60 tabs 09/28/23 insulin glargine 100 unit/mL 18 unit (0.18 mL) subcut BID #10 mL 09/28/23 subcutaneous solution (Lantus U-100 Insulin) benzonatate 200 mg capsule 200 mg PO TID PRN cough #20 caps 11/09/23 doxycycline monohydrate 100 mg 100 mg PO BID #20 caps 11/09/23 capsule Allergies Allergy/AdvReac Type Severity Reaction Status Date / Time ibuprofen Allergy Intermediate vomiting, Verified 11/09/23 12:06 itching acetaminophen [Tylenol] Allergy Unknown Unknown Verified 11/09/23 12:06 codeine AdvReac Severe Anaphylaxis Verified 11/09/23 12:06 morphine AdvReac Intermediate vomiting Verified 11/09/23 12:06 vancomycin AdvReac Intermediate Itching Verified 11/09/23 12:06 Review of Systems Review of Systems: Yes all other systems are reviewed and are negative Constitutional: Constitutional: Reports no additional constitutional complaints, Denies body ache(s), Denies chills, Denies fever(s), Denies headache(s) and Denies weakness Eyes: Eyes: Reports no additional eye complaints and Denies change in vision ENT: Reports system reviewed and no additional complaints, except as documented, Denies dizziness, Denies headache(s), Denies nasal congestion, Denies nasal discharge and Denies neck pain Cardiovascular: Cardiovascular: Reports no additional cardiovascular complaints, Reports chest pain, Reports leg edema and Denies dyspnea Respiratory: Respiratory: Reports no additional respiratory complaints, Reports cough and Denies dyspnea Gastrointestinal: Gastrointestinal: Reports no additional gastrointestinal complaints, Denies abdominal pain, Denies diarrhea, Denies nausea and Denies vomiting Genitourinary: Genitourinary: Reports no additional female genitourinary complaints and Denies urinary incontinence Musculoskeletal: Musculoskeletal: Reports no additional musculoskeletal complaints, Denies back pain, Denies arthralgias, Denies joint swelling, Denies neck pain, Denies numbness and Denies tingling Integumentary/Breasts: Skin/Breast: Reports system reviewed and no additional complaints, except as docu and Denies rash Neurologic: Reports system reviewed and no additional complaints, except as documented, Denies Abnormal speech present, Denies dizziness, Denies headache(s), Denies numbness, Denies tingling and Denies weakness PMFSH Past Medical History Attestation statement: The following information was validated with the patient. Source: old records reviewed and nursing notes reviewed Medical History Mood disorder Elevated d-dimer FELICIA (acute kidney injury) Abdominal pain Constipation Chronic respiratory failure with hypoxia Stercoral colitis Decubitus ulcer Hypoxia CHF exacerbation MDD (major depressive disorder), recurrent episode, moderate Adjustment disorder with mixed anxiety and depressed mood Panic disorder Cellulitis of right lower extremity Stasis dermatitis of both legs DANIEL (obstructive sleep apnea) Asthma Hyperglycemia due to diabetes mellitus COPD (chronic obstructive pulmonary disease) Congestive heart failure Obesity hypoventilation syndrome CKD (chronic kidney disease) stage 3, GFR 30-59 ml/min NICM (nonischemic cardiomyopathy) Acute on chronic combined systolic and diastolic CHF (congestive heart failure) Morbid obesity Diabetic neuropathy, painful Chronic pain High cholesterol Depression Hypertension Diabetes Surgical History History of surgery Hx of cholecystectomy Family History Family History Mother HTN (hypertension) Diabetes CAD (coronary artery disease) Father HTN (hypertension) Diabetes CAD (coronary artery disease) Maternal Grandmother CAD (coronary artery disease) Social History Social History Household Members: None Household Members Other:: GRANDSON Housing: Condominium Housing 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 Do you presently have visiting nurse or other home services: Yes ([facility] twice daily) Unable to assess alcohol history related to: Unable to respond and Refusing to respond Alcohol intake: former Comment: 1:1 Patient Tobacco Use Status: Former Tobacco user Quit Date: 1999 Tobacco use type: Cigarette Years Smoked: 38 e-Cigarette/Vaping Use: Never Used Second Hand Smoke Exposure: No Substance Use Type: Former Substance User Advance Directives: Yes Advance Directives Date on File: 12/19/20 service: No Current occupational status: disabled Physical Exam Vital Signs: Vital Signs: Last Vital Signs Temp 97.7 F 11/09/23 17:24 Pulse 100 11/09/23 17:24 Resp 18 11/09/23 17:24 BP 128/65 11/09/23 17:24 Pulse Ox 93 11/09/23 17:24 O2 Del Method Room Air 11/09/23 17:24 BMI result Body Mass Index 40.7 Const: General: cooperative, healthy appearing, comfortable and no acute distress Orientation/consciousness: patient oriented x3 Limitations: no limitations HEENT: Head: Yes normal to inspection Ears: hearing grossly normal bilaterally General nose exam: Normal external nose present Face and sinus: Yes normal facial exam Mouth: Normal oral and palatal mucosa present Throat: Yes posterior oropharynx normal Eyes: General: appearance normal, both eyes and all related structures Pupils: Equal, round and reactive pupils present Neck: Neck: Yes normal visual inspection Chest: Chest palpation & inspection: normal inspection of the chest Resp: Other: Diminished breath sounds Effort & Inspection: normal respiratory effort Cardio: Rate: regular rate Rhythm: regular rhythm Peripheral pulses: Peripheral pulses 2+ throughout GI: Inspection: Yes normal to inspection Palpation (GI): Soft to palpation and nontender Auscultation: normal bowel sounds Back/Spine/Pelvis: Thoracic/Lumbar Spine: thoracic and lumbar spine normal to inspection Skin: General skin exam: no rashes or lesions noted Neuro: General: patient oriented x3, no focal motor deficits and normal sensation to monofilament Cranial nerves: Yes Equal, round and reactive pupils present Cognition (Neuro): normal cognition Speech: No Abnormal speech present Gait exam (Neuro): Normal gait present Motor exam (neuro): 5/5 motor strength present throughout Extrem: Other: 1+ nonpitting edema bilateral General: Yes normal to inspection Course Course Course Narrative: This is a rapid medical exam. deferred additional HPI, ROS, PE to primary provider. 63 yo female with pmh DM, CHF, asthma, oxygen dependent, Decubitus ulcer., anxiety with chest tightness since 6am. Went to Dr Huber and sent to the ER. Will obtain labs, EKG, CXR, viral testing VSS Reevaluation(s) Reevaluation #1: Patient has had 2- troponins and nonischemic EKG with a HPI this atypical for ACS. Her chest x-ray shows a small area of pneumonia in the right lower lung base. She does have a cough which is new for her. She has no fevers or chills she is nontoxic appearing and is not requiring supplemental oxygen. I will send her home with an oral antibiotic. Addition the patient's BNP is mildly elevated she does have some increasing lower extremity swelling and is on Bumex every other day. She can increase her Bumex to daily for the next 5 days and then go back to an [id number] schedule. This was reviewed with her instructions were given for home. Reviewed worrisome signs and symptoms of when to return to the emergency room. Comfortable plan for discharge home Medical Decision Making Medical Decision Making MDM Narrative: 63 yo female with pmh DM, CHF, asthma, oxygen dependent, Decubitus ulcer., anxiety with chest tightness since 6am. Went to Dr Huber and sent to the ER. Patient reports nonproductive dry cough and bilateral lower leg swelling. She is taking Bumex 1 mg every other day. She has no shortness of breath, no exertional symptoms, no leg pain, no fevers, chills, vomiting, diaphoresis, diarrhea, abdominal pain. Lungs are diminished Mild bilateral nonpitting edema Otherwise exam was benign Vitals are stable Will obtain troponin x2, EKG, chest x-ray, viral test Differential Diagnosis Differential Diagnoses: The differential diagnosis associated with the presentation includes ACS-HPI is atypical for ACS with 2- troponins and a nonischemic EKG this is less likely Less likely aortic dissection with gradual onset of symptoms Less likely PE with no hypoxia, no tachypnea, no tachycardia, no clinical findings concerning for DVT Viral syndrome, pneumonia, pneumothorax, CHF exacerbation Admission/Observation Consideration of admission/observation: Escalation of care including admission/observation considered Patient with a small area of pneumonia seen on chest x-ray with no hypoxia or tachypnea requiring supplemental oxygen, she is afebrile, nontoxic appearing of note, patient does have p.r.n. oxygen at home in case she needs it. Lab Data MDM Lab Attestation statement: I reviewed the patient's lab results. Anemia at baseline, mild hyperglycemia 11/09/23 12:23 11/09/23 12:23 Labs: Lab Results 11/09/23 11/09/23 11/09/23 Range/Units 12:22 12:23 16:49 WBC 8.4 (4.8-10.8) X10*3/uL RBC 3.67 L (4.20-5.50) X10*6/uL Hgb 9.7 L (12.0-16.0) g/dl Hct 31.8 L (37.0-47.0) % MCV 86.6 (80.0-98.0) fL MCH 26.4 L (27.0-33.0) pg MCHC 30.5 L (31.0-35.0) g/dl RDW 16.1 H (11.0-16.0) % Plt Count 150 L (160-400) X10*3/uL MPV 8.8 L (9.4-12.3) fL Immature Gran % (Auto) 0.5 H (0.0-0.4) % Neut % (Auto) 79.1 H (45-73) % Lymph % (Auto) 11.7 L (20-40) % [facility] % (Auto) 6.9 (2-11) % Eos % (Auto) 1.4 (0-4) % Baso % (Auto) 0.4 (0-2) % Lymph # (Auto) 1.0 L (1.2-4.9) X10*3/uL [facility] [place] [facility] # (Auto) 0.6 (0.1-1.2) X10*3/uL Eos # (Auto) 0.1 (0.0-0.4) X10*3/uL Baso # (Auto) 0.0 (0.0-0.2) X10*3/uL Abs Immat Gran (auto) 0.04 H (0.00-0.03) X10*3/uL Absolute Neuts (auto) 6.7 (2.0-8.3) x10*3/uL Absolute Nucleated RBC 0.000 (0.0-0.012) X10*3/uL Nucleated RBC % (auto) 0.0 (0.0-0.2) /100WBC PT 12.0 (11.1-13.3) SEC INR 1.0 (0.9-1.1) Sodium 142 (135-145) mmol/L Potassium 4.3 (3.3-5.1) mmol/L Chloride 108 (96-108) mmol/L Carbon Dioxide 27 (22-29) mmol/L Anion Gap 11 L (12-20) BUN 30 H (9-16) mg/dL Creatinine 1.06 (0.5-1.4) mg/dL Estim Creat Clear Calc 63.5 Estimated GFR 53 Random Glucose 292 H (60-115) mg/dL Calcium 8.5 (8.4-10.2) mg/dL Magnesium 2.1 (1.6-2.6) mg/dL Total Bilirubin 0.4 (0.0-1.0) mg/dL Direct Bilirubin 0.2 (0.0-0.5) mg/dL AST 12 (5-31) U/L ALT 8 (0-31) U/L Alkaline Phosphatase 80 (39-117) U/L Troponin I High Sens 9.2 8.9 (<3.5-17.0) ng/L B-Natriuretic Peptide 112 H (<100) pg/mL Total Protein 6.8 (6.5-8.0) g/dL Albumin 3.6 (3.5-5.0) g/dL Influenza Type A (PCR) NEGATIVE (Negative) Influenza Type B (PCR) NEGATIVE (Negative) RSV RNA Qual (PCR) NEGATIVE (Negative) SARS-CoV-2 RNA (RT-PCR) NEGATIVE (Negative) Independent Interpretation I performed an independent interpretation of an: EKG and Plain X-Ray Interpretation: I independently reviewed the chest x-ray and agree with the radiology report I independently viewed EKG which shows sinus rhythm with PVCs with a rate 87, normal IA, normal QRS, normal QT, no changes when compared to EKG from 09/23/2023 Radiology Impression Discussion of test interpretation with radiology: I have reviewed the radiologist's reading. Radiologist Impression: [id number] [place] [id number] XRay Report Signed Patient: Lupis Mueller MR#: [id number] : 1960 Acct:[id number] Age/Sex: 63 / F ADM Date: 11/09/23 Loc: HO.ED Attending Dr: Ordering Physician: Tamie Núñez NP Date of Service: 11/09/23 Procedure(s): XR chest 2V Accession Number(s): [id number] cc: Tavo Huber MD; Tamie Núñez NP~ EXAMINATION: XR CHEST CLINICAL INFORMATION: Chest tightness COMPARISON: Chest 09/20/2023, 04/27/2023, 11/23/2020 TECHNIQUE: 2 views of the chest were obtained. FINDINGS: The lungs are well expanded. There is increased streaky opacity in the right lower lobe consistent with atelectasis and/or pneumonia. There is stable marked enlargement of the cardiac silhouette. There is blunting of the posterior sulci consistent with pleural thickening versus mild pleural effusions. No interstitial pulmonary edema. Calcification of the thoracic arch indicative of atherosclerotic disease. No acute osseous abnormality. XR/XR chest 2V IMPRESSION: 1. Right lower lobe atelectasis and/or pneumonia. 2. Blunting of the posterior sulci consistent with pleural thickening versus mild pleural effusions. Independent Historian Clinical information obtained from an independent historian. History obtained from or confirmed by: Other (Primary care doc) Prescription Management I considered prescription management with: Antibiotic Discharge Plan Discharge Clinical Impression: Chest pain, Pneumonia Patient Disposition: Home, Self-Care Instructions: Chest Pain (ED), Community Acquired Pneumonia (ED) Additional Instructions: Your x-ray shows a small area of pneumonia in right lower lung Take the antibiotic as prescribed. Take it with food. Take the cough medicine as needed. You do have some slight swelling in your legs and you are taking Bumex 1 mg every other day as prescribed by your doctor. For the next 5 days I want you to take it daily and then go back to taking it every other day. Please follow-up with Dr. Huber Prescriptions: New doxycycline monohydrate 100 mg capsule 100 mg PO BID Qty: 20 0RF benzonatate 200 mg capsule 200 mg PO TID PRN (Reason: cough) Qty: 20 0RF No Action (DME) blood-glucose meter [FreeStyle Lite Meter] Kit See Rx Instructions .Route Qty: 1 0RF Rx Instructions: As directed checks POC 4 X/day insulin lispro [Humalog U-100 Insulin] 100 unit/mL Solution See Protocol subcut QIDACHS Qty: 1 0RF Protocol: Insulin Correction Scale Less than or equal to 110 ---- Give (units): 0 111 to 150 Give (units): 0 151 to 200 Give (units): 2 201 to 250 Give (units): 4 251 to 300 Give (units): 6 301 to 350 Give (units): 8 Greater than 350 Give (units): 10 Call MD if Blood Glucose > : 350 Rx Instructions: sliding scale aspirin 81 mg tablet,delayed release (DR/EC) 81 mg PO DAILY simvastatin 20 mg tablet 20 mg PO BEDTIME fluticasone propionate [Flovent HFA] 110 mcg/actuation HFA aerosol inhaler 2 puff inhalation BID gabapentin 400 mg Capsule 400 mg PO BID@0900,1500 nystatin 100,000 unit/gram Powder 1 appl TOPICAL BID PRN (Reason: Rash) Protocol: Apply to: Apply to: under breasts, around groin Rx Instructions: apply to groin area, and under breasts (DME) insulin syringe-needle U-100 [BD Insulin Syringe Ultra-Fine] 1 mL 31 gauge x 5/16 syringe MISCELLANEOUS QID isosorbide mononitrate 30 mg tablet extended release 24 hr 1 tab PO DAILY clonidine HCl 0.1 mg Tablet 0.1 mg PO TID PRN (Reason: hyperarousal, anxiety, panic) Qty: 90 0RF Protocol: Hold for SBP< HOLD for SBP < : 90 hydralazine 25 mg Tablet 25 mg PO BID Qty: 60 0RF Protocol: Hold for SBP< HOLD for SBP < : 90 metoprolol succinate 50 mg tablet extended release 24 hr 50 mg PO DAILY prazosin 1 mg capsule 1 mg PO BEDTIME meclizine 25 mg tablet 25 mg PO TID PRN (Reason: Vertigo) risperidone 0.5 mg tablet 0.5 mg PO BID duloxetine 30 mg capsule,delayed release(DR/EC) 30 mg PO QAM insulin glargine [Lantus U-100 Insulin] 100 unit/mL solution 18 unit subcut BID Qty: 10 0RF bumetanide 1 mg Tablet 0.5 mg PO BEDTIME Qty: 30 0RF Protocol: Hold for SBP< HOLD for SBP < : 90 clonazepam [Klonopin] 0.5 mg tablet 0.5 mg PO BID Qty: 60 0RF trazodone 50 mg tablet 50 mg PO BEDTIME (DME) FreeStyle Lite Strips Strip See Rx Instructions .ROUTE BID Qty: 10 Rx Instructions: As directed (DME) lancets [FreeStyle Lancets] 28 gauge misc See Rx Instructions .ROUTE QID Qty: 100 Rx Instructions: As directed (DME) insulin syringe-needle U-100 [BD Insulin Syringe Ultra-Fine] 1 mL 31 gauge x 5/16 syringe See Rx Instructions .ROUTE QID Qty: 10 Rx Instructions: As directed Referrals: Tavo Huber MD [Primary Care Provider] - 1 week Print Language: Yi
[2023-11-09 12:32] LABS: MANUAL DIFF FLAG NO
[2023-11-09 12:38] LABS: Basophils Percent Auto 0.4 % (0-2); Eosinophils Absolute Auto 0.1 X10*3/uL (0.0-0.4); Eosinophils Percent Auto 1.4 % (0-4); Hematocrit 31.8 % (37.0-47.0); Hemoglobin 9.7 g/dl (12.0-16.0); Imm Gran Abs Auto 0.04 X10*3/uL (0.00-0.03); Imm Gran Pct Auto 0.5 % (0.0-0.4); Lymphocytes Percent Auto 11.7 % (20-40); Mean Corpuscular HGB Conc 30.5 g/dl (31.0-35.0); Mean Corpuscular Hemoglobin 26.4 pg (27.0-33.0); Mean Corpuscular Volume 86.6 fL (80.0-98.0); Mean Platelet Volume 8.8 fL (9.4-12.3); Monocytes Absolute Auto 0.6 X10*3/uL (0.1-1.2); Monocytes Percent Auto 6.9 % (2-11); Neutrophils Absolute Auto 6.7 x10*3/uL (2.0-8.3); Neutrophils Percent Auto 79.1 % (45-73); Platelet Count 150 X10*3/uL (160-400); Red Blood Count 3.67 X10*6/uL (4.20-5.50); Red Cell Distribution Width 16.1 % (11.0-16.0); White Blood Count 8.4 X10*3/uL (4.8-10.8)
[2023-11-09 12:48] LABS: Alanine Aminotransferase 8 U/L (0-31); Albumin Level 3.6 g/dL (3.5-5.0); Alkaline Phosphatase 80 U/L (39-117); Anion Gap 11 (12-20); Aspartate Amino Transferase 12 U/L (5-31); Bilirubin Direct 0.2 mg/dL (0.0-0.5); Bilirubin Total 0.4 mg/dL (0.0-1.0); Blood Urea Nitrogen 30 mg/dL (9-16); Calcium 8.5 mg/dL (8.4-10.2); Carbon Dioxide 27 mmol/L (22-29); Chloride 108 mmol/L (96-108); Creatinine Clr Calc Pharmacy 63.5; Estimated Glomerular Filt Rate 53; Glucose Random 292 mg/dL (60-115); Magnesium 2.1 mg/dL (1.6-2.6); Potassium 4.3 mmol/L (3.3-5.1); Sodium 142 mmol/L (135-145); Total Protein 6.8 g/dL (6.5-8.0)
[2023-11-09 12:53] LABS: B Type Natriuretic Peptide 112 pg/mL (<100)
[2023-11-09 12:55] LABS: Troponin-I High Sensitivity 9.2 ng/L (<3.5-17.0)
[2023-11-09 13:10] LABS: Influenza A PCR NEGATIVE (Negative); Influenza B PCR NEGATIVE (Negative); Resp Syncy Virus RNA Qual PCR NEGATIVE (Negative); SARS COV2 PCR INHOUSE NEGATIVE (Negative)
[2023-11-09 17:14] LABS: Troponin-I High Sensitivity 8.9 ng/L (<3.5-17.0)
[2023-11-09 17:24] VITALS: BP 128/65; PULSE 100; RESP 18; TEMP 36.5; O2SAT 93
[2023-11-09 17:30] VITALS: BP 128/65; PULSE 100; RESP 18; TEMP 36.5; O2SAT 93
== END 2023-11-09 17:30 | disposition home or self-care (01) ==
PROVIDERS: Nurse Practitioner Family; Emergency Provider Internal Medicine; PCP Internal Medicine
DX: J44.0 Chronic obstructive pulmonary disease with (acute) lower respiratory infection (principal); J18.9 Pneumonia, unspecified organism; E11.22 Type 2 diabetes mellitus with diabetic chronic kidney disease; I13.0 Hypertensive heart and chronic kidney disease with heart failure and stage 1 through stage 4 chronic kidney disease, or unspecified chronic kidney disease; N18.30 Chronic kidney disease, stage 3 unspecified; I50.9 Heart failure, unspecified; J96.11 Chronic respiratory failure with hypoxia; Z99.81 Dependence on supplemental oxygen
CPT/HCPCS: 0241U; 36415; 71046; 80048; 80076; 83735; 83880; 84484; 85025; 85610; 93005; 99283

== ENCOUNTER → 2023-11-09 12:08 | Outpatient (BNV) | payer OTHER, SELFPAY | PROVIDERS: PCP Internal Medicine; Visit Provider Internal Medicine Cardiovascular Disease | DX: R07.9 Chest pain, unspecified (principal) | CPT/HCPCS: 93010 ==

== ENCOUNTER 2023-11-11 08:00 | Outpatient (AMB) | payer OTHER, SELFPAY ==
[2023-11-11 08:02] VITALS: BP 120/62; PULSE 108; BMI 51.4
--- NOTE | 2023-11-11 08:02 | MHC.OFFVIS ---
Vital Signs 11/11/23 08:02 Height 5 ft 2 in Weight 281 lb 1.43 oz BMI 51.4 BP 120/62 Blood Pressure Location Lt brachial Position Sitting Pulse 108 H Pulse Source Pulse Oximeter Intake Visit Reasons: f/u Type 2 Intake Note: Patient presents today to follow up on D2MT. Last Diabetic Eye exam: 10/2023 Last Podiatry Visit: 05/2023 Random Glucose: 252 mg/dl HgA1c: 6.0% 09/24/23 Showroom Sales Consultant Required: No Accompanied by: SUB PLANT MANAGER Allergies ibuprofen Allergy (Intermediate, Verified 11/11/23 08:09) vomiting, itching acetaminophen [Tylenol] Allergy (Unknown, Verified 11/11/23 08:09) Unknown codeine Adverse Reaction (Severe, Verified 11/11/23 08:09) Anaphylaxis morphine Adverse Reaction (Intermediate, Verified 11/11/23 08:09) vomiting vancomycin Adverse Reaction (Intermediate, Verified 11/11/23 08:09) Itching HPI Comments Details: 63 YO F who is seen in consultation for T2DM at the request of PCP. Initially diagnosed with T2DM in >10 yrs . Never saw endo before Was initially started on treatment with metfromin . Current regimen Lantus 45 units BID (taking 18 units BID according to pt ) Humalog scale 4-6 units . Lucy download shows she is using the sense of 52% of the time. Average glucose is 218 with glucose variability 20.9%. 26% range with 74% hyperglycemia and no hypoglycemia Not Reports low sugars . Family history of T2DM in grandparents and parents have Type 2 DM . Not Has eyes checked yearly, last eye exam 3 mos ago , berry retinopathy. Has appt 04/2023 has neuropathy, does not sees podiatry. Has nephropathy,Not on RICHY/ARB. Has HLD, on statin. Denies CAD. Not Had diabetes education. [facility] Medical History Mood disorder Elevated d-dimer FELICIA (acute kidney injury) Abdominal pain Constipation Chronic respiratory failure with hypoxia Stercoral colitis Decubitus ulcer Hypoxia CHF exacerbation MDD (major depressive disorder), recurrent episode, moderate Adjustment disorder with mixed anxiety and depressed mood Panic disorder Cellulitis of right lower extremity Stasis dermatitis of both legs DANIEL (obstructive sleep apnea) Asthma Hyperglycemia due to diabetes mellitus COPD (chronic obstructive pulmonary disease) Congestive heart failure Obesity hypoventilation syndrome CKD (chronic kidney disease) stage 3, GFR 30-59 ml/min NICM (nonischemic cardiomyopathy) Acute on chronic combined systolic and diastolic CHF (congestive heart failure) Morbid obesity Diabetic neuropathy, painful Chronic pain High cholesterol Depression Hypertension Diabetes Surgical History History of surgery Hx of cholecystectomy Family History Mother HTN (hypertension) Diabetes CAD (coronary artery disease) Father HTN (hypertension) Diabetes CAD (coronary artery disease) Maternal Grandmother CAD (coronary artery disease) Social History Household Members: None Household Members Other:: GRANDSON Housing: Condominium Housing 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 Absence of acromegalic features. Neck exam reveals nl size thyroid about 15 gms. No thyroid nodules palpable. No carotid bruits present. Lungs CTA. Heart S1 S2, Reg R/R. No M/R/ G. Skin exam reveals absence of vitiligo or acanthosis nigricans. Abdominal exam reveals Soft NT/ND with NA BS. No organomegaly present. Neck Other: . Extrem Other: Visual exam of foot performed. There is 3+ edema in lower extremities. No ulcerations or open lesions. No onchomycosis, no callouses.Pulses 2 + distally Sensation intact to monofilament exam. Vibratory sensation sensed is intact with 128 Hz tuning fork Assessment & Plan Assessment & Plan (1) Uncontrolled type 2 diabetes mellitus with hyperglycemia: Code(s): E11.65 - Type 2 diabetes mellitus with hyperglycemia Category: Medical Plan: This 63-year-old female with a history of type 2 diabetes being treated with basal-bolus insulin with poor glycemic control and known microvascular and macrovascular complications namely CKD stage 4., PVD and neuropathy Plan is start Ozempic 0.25 mg Q weekly. Went over side effects of Ozempic including but not limited to nausea, vomiting risk of pancreatitis. Emphasized that the patient resume previous Lantus regimen 45 units BID . check her point cares pre and post meals with Lucy and reported hypoglycemia. . . I also went over the correlation of poor glycemic control to development and progression of complication. Medications: New semaglutide (Ozempic) for 4 weeks 0.25 mg (0.368 mL) subcut QWEEK 3 mL 5RF Coding Level of Care Code Est Pt Level 4 (04687) Diagnoses Uncontrolled type 2 diabetes mellitus with hyperglycemia E11.65
[2023-11-11 08:15] LABS: Glucose, Whole Blood 252 mg/dL (60-115)
== END 2023-11-11 08:31 | disposition home or self-care (01) ==
PROVIDERS: PCP Internal Medicine; Visit Provider Internal Medicine Endocrinology, Diabetes & Metabolism
DX: E11.65 Type 2 diabetes mellitus with hyperglycemia (principal)
CPT/HCPCS: 99214

== ENCOUNTER → 2023-11-11 08:00 | Outpatient (BNVA) | payer OTHER, SELFPAY | PROVIDERS: PCP Internal Medicine; Visit Provider Internal Medicine Endocrinology, Diabetes & Metabolism | DX: E11.65 Type 2 diabetes mellitus with hyperglycemia (principal); Z79.4 Long term (current) use of insulin | CPT/HCPCS: 82947; 99212 ==

== ENCOUNTER 2023-11-21 16:08 | Emergency (ER) | payer OTHER, SELFPAY ==
--- NOTE | 2023-11-21 16:15 | ED_ITS ---
HPI - Anxiety General Chief Complaint: Anxiety Stated Complaint: anxiety attack, chest tightness, agitated Time Seen by Provider: 11/21/23 16:14 Source: patient Mode of arrival: EMS Limitations: no limitations History of Present Illness HPI narrative: 63-year-old female with a history of mood disorder, anxiety, chronic respiratory failure with hypoxia, congestive heart failure, depression, adjustment disorder, panic disorder, stasis dermatitis, obstructive sleep apnea, COPD, diabetes mellitus, hypertension, high cholesterol who presents emergency department for evaluation of chest pain and anxiety. She states she developed chest tightness this morning. She states it has been constant since onset. She has had similar pain in the past. She states she is feeling very anxious and is having a panic attack. The patient keeps repeating ?please help me, please please help me, please help me please ?. Related Data Home Medications ?Medication ?Instructions ?Recorded ?Confirmed aspirin 81 mg tablet,delayed 81 mg PO DAILY 11/23/20 11/06/23 release fluticasone propionate 110 2 puff inhalation BID 11/23/20 11/06/23 mcg/actuation HFA aerosol inhaler (Flovent HFA) simvastatin 20 mg tablet 20 mg PO BEDTIME 11/23/20 11/06/23 blood sugar diagnostic (FreeStyle #10 ea 06/25/22 03/26/23 Lite Strips) insulin syringe-needle U-100 1 mL #10 ea 06/25/22 03/26/23 31 gauge x 5/16 (BD Insulin Syringe Ultra-Fine) lancets 28 gauge (FreeStyle #100 ea 06/25/22 03/26/23 Lancets) gabapentin 400 mg capsule 400 mg PO BID@0900,1500 09/08/22 11/06/23 nystatin 100,000 unit/gram topical 1 appl topical BID PRN Rash 09/08/22 11/06/23 powder insulin syringe-needle U-100 1 mL 09/27/22 03/26/23 31 gauge x 5/16 (BD Insulin Syringe Ultra-Fine) isosorbide mononitrate 30 mg 1 tab PO DAILY 09/28/22 11/06/23 tablet,extended release 24 hr trazodone 50 mg tablet 50 mg PO BEDTIME 04/27/23 11/06/23 duloxetine 30 mg capsule,delayed 30 mg PO QAM 09/21/23 11/06/23 release meclizine 25 mg tablet 25 mg PO TID PRN Vertigo 09/21/23 11/06/23 metoprolol succinate 50 mg 50 mg PO DAILY 09/21/23 11/06/23 tablet,extended release 24 hr prazosin 1 mg capsule 1 mg PO BEDTIME 09/21/23 11/06/23 risperidone 0.5 mg tablet 0.5 mg PO BID 09/21/23 11/06/23 Previous Rx's ?Medication ?Instructions ?Recorded insulin lispro 100 unit/mL See Protocol subcut QIDACHS #1 mL 01/16/21 subcutaneous solution (Humalog U-100 Insulin) clonidine HCl 0.1 mg tablet 0.1 mg PO TID PRN hyperarousal, 04/01/22 anxiety, panic #90 tabs hydralazine 25 mg tablet 25 mg PO BID #60 tabs 04/08/22 blood-glucose meter (FreeStyle #1 ea 09/02/22 Lite Meter kit) bumetanide 1 mg tablet 0.5 mg PO BEDTIME #30 tabs 09/28/23 clonazepam 0.5 mg tablet (Klonopin) 0.5 mg PO BID #60 tabs 09/28/23 insulin glargine 100 unit/mL 18 unit (0.18 mL) subcut BID #10 mL 09/28/23 subcutaneous solution (Lantus U-100 Insulin) benzonatate 200 mg capsule 200 mg PO TID PRN cough #20 caps 11/09/23 doxycycline monohydrate 100 mg 100 mg PO BID #20 caps 11/09/23 capsule semaglutide 0.25 mg or 0.5 mg (2 0.25 mg (0.368 mL) subcut QWEEK #3 11/16/23 mg/3 mL) subcutaneous pen injector mL (Ozempic) Allergies Allergy/AdvReac Type Severity Reaction Status Date / Time ibuprofen Allergy Intermediate vomiting, Verified 11/21/23 16:26 itching acetaminophen [Tylenol] Allergy Unknown Unknown Verified 11/21/23 16:26 codeine AdvReac Severe Anaphylaxis Verified 11/21/23 16:26 morphine AdvReac Intermediate vomiting Verified 11/21/23 16:26 vancomycin AdvReac Intermediate Itching Verified 11/21/23 16:26 Review of Systems Review of Systems: Yes all other systems are reviewed and are negative PMFSH Past Medical History [facility] Narrative: Social history: She denies tobacco, alcohol and drug use Medical History Mood disorder Elevated d-dimer FELICIA (acute kidney injury) Abdominal pain Constipation Chronic respiratory failure with hypoxia Stercoral colitis Decubitus ulcer Hypoxia CHF exacerbation MDD (major depressive disorder), recurrent episode, moderate Adjustment disorder with mixed anxiety and depressed mood Panic disorder Cellulitis of right lower extremity Stasis dermatitis of both legs DANIEL (obstructive sleep apnea) Asthma Hyperglycemia due to diabetes mellitus COPD (chronic obstructive pulmonary disease) Congestive heart failure Obesity hypoventilation syndrome CKD (chronic kidney disease) stage 3, GFR 30-59 ml/min NICM (nonischemic cardiomyopathy) Acute on chronic combined systolic and diastolic CHF (congestive heart failure) Morbid obesity Diabetic neuropathy, painful Chronic pain High cholesterol Depression Hypertension Diabetes Surgical History History of surgery Hx of cholecystectomy Family History Family History Mother HTN (hypertension) Diabetes CAD (coronary artery disease) Father HTN (hypertension) Diabetes CAD (coronary artery disease) Maternal Grandmother CAD (coronary artery disease) Social History Social History Household Members: None Household Members Other:: GRANDSON Housing: Condominium Housing 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 Do you presently have visiting nurse or other [facility] Unable to assess alcohol history related to: Unable to respond and Refusing to respond Alcohol intake: former Comment: 1:1 Patient Tobacco Use Status: Former Tobacco user Quit Date: 1999 Tobacco use type: Cigarette Years Smoked: 38 e-Cigarette/Vaping Use: Never Used Second Hand Smoke Exposure: No Substance Use Type: Former Substance User Advance Directives: Yes Advance Directives on File: Yes Advance Directives Date on File: 12/19/20 service: No Current occupational status: disabled Physical Exam Vital Signs: Vital Signs: Last Vital Signs Pulse 115 H 11/21/23 17:26 Resp 18 11/21/23 17:26 BP 86/42 L 11/21/23 17:26 Pulse Ox 94 11/21/23 17:26 O2 Del Method Room Air 11/21/23 17:26 Oxygen Flow Rate 2 11/21/23 16:24 BMI result Body Mass Index 54.3 Vital signs revealed a low blood pressure of 86/42 otherwise unremarkable Exam: General: Patient is awake, extremely anxious, repeated ?please help me, please please help me, please help me please ?. Head: Normocephalic, atraumatic EENT: PERRL, Lids normal, sclera normal, conjunctiva normal, nose normal , ears normal, throat without erythema or exudates Neck: Supple, no adenopathy Lung: breath sounds symmetric, no wheezing, rales or rhonchi Chest: symmetric movement, nontender Heart: regular rate and rhythm, normal S1, S2 no murmurs or rubs Abdomen: soft, non-tender, nondistended, normal bowel sounds Back: no vertebral tenderness, no CVAT Extremities: no deformities, moves all extremities symmetrically Neuro: Awake, alert, oriented, normal speech, cranial nerves intact, moves all extremities symmetrically Psych: Pleasant, cooperative Medications Administered Discontinued Medications Generic Name Dose Route Start Last Admin Trade Name Trungq PRN Reason Stop Dose Admin Diphenhydramine HCl 50 mg 11/21/23 16:23 11/21/23 16:36 Diphenhydramine Hcl 25 Mg Capsule PO 11/21/23 16:24 50 mg ONCE ONE Administration Lorazepam 2 mg 11/21/23 16:23 11/21/23 16:36 Lorazepam 1 Mg Tablet PO 11/21/23 16:24 2 mg ONCE STA Administration Quetiapine Fumarate 25 mg 11/21/23 17:04 11/21/23 17:29 Quetiapine Fumarate 25 Mg Tablet PO 11/21/23 17:05 25 mg ONCE STA Administration Medical Decision Making Medical Decision Making [facility] Narrative: 63-year-old female with a history of mood disorder, anxiety, chronic respiratory failure with hypoxia, congestive heart failure, depression, adjustment disorder, panic disorder, stasis dermatitis, obstructive sleep apnea, COPD, diabetes mellitus, hypertension, high cholesterol who presents emergency department for evaluation of constant, chest pain and anxiety which began this morning. On presentation the patient is having an anxiety/panic attack and is repeating the following phrase ?please help me, please please help me, please help me please ?. Patient has had similar presentations in the past. Physical examination did reveal tenderness palpation of her anterior chest over her costochondral joints bilaterally left greater than right Differential diagnosis: ?Includes but is not limited to myocardial infarction, myocardial ischemia, costochondritis, anxiety, panic attack Following evaluation was ordered: 12 EKG, satellite project site monitor, O2 saturation monitor Patient was initially treated with the following: Ativan 2 mg orally, Benadryl 50 mg orally, Seroquel 25 mg orally Course: 18:40 Patient's 12 EKG was unchanged from her previous [address] segment elevation or depression Patient did get significant improvement after the above treatment and she states she is feeling better and wants to go home. Patient's presentation is consistent with acute anxiety/panic attack. She was advised to continue taking medications as prescribed by your providers and to follow up with her PCP for re-evaluation and further management of her anxiety. Admission/Observation Consideration of admission/observation: Escalation of care including admission/observation considered Independent Interpretation I performed an independent interpretation of an: EKG Interpretation: My interpretation patient's 12 EKG done at 16:27 hours is as follows: Sinus tachycardia with a rate of 116, normal NC interval, QRS duration, prolonged QTC interval 508 milliseconds, patient has nonspecific ST and T-wave abnormalities, no ST segment elevation, no ST segment depression, frequent PVCs. Compared to EKG dated 11/09/2023 there are no significant changes, patient has more frequent PVCs on today's EKG there were PVCs on the previous EKG. Chronic Conditions Patient?s care impacted by: Diabetes, Hypertension and Other (Anxiety) Discharge Plan Discharge Clinical Impression: Chest pain, Anxiety attack Patient Disposition: Home, Self-Care Additional Instructions: Your EKG was unchanged from your previous EKG. Your symptoms are consistent with an anxiety/panic attack You were treated with Ativan 2 mg orally, Benadryl 50 mg orally and Seroquel 25 mg orally. Continue taking medications as prescribed by your providers Follow-up with your doctor in 2 days. Please return to the emergency department if your symptoms get worse or if you develop any symptoms that are concerning to you. Prescriptions: No Action (DME) blood-glucose meter [FreeStyle Lite Meter] Kit See Rx Instructions .Route Qty: 1 0RF Rx Instructions: As directed checks POC 4 X/day Ozempic 0.25 mg or 0.5 mg (2 mg/3 mL) pen injector 0.25 mg subcut QWEEK Qty: 3 5RF Rx Instructions: for 4 weeks insulin lispro [Humalog U-100 Insulin] 100 unit/mL Solution See Protocol subcut QIDACHS Qty: 1 0RF Protocol: Insulin Correction Scale Less than or equal to 110 ---- Give (units): 0 111 to 150 Give (units): 0 151 to 200 Give (units): 2 201 to 250 Give (units): 4 251 to 300 Give (units): 6 301 to 350 Give (units): 8 Greater than 350 Give (units): 10 Call MD if Blood Glucose > : 350 Rx Instructions: sliding scale aspirin 81 mg tablet,delayed release (DR/EC) 81 mg PO DAILY simvastatin 20 mg tablet 20 mg PO BEDTIME fluticasone propionate [Flovent HFA] 110 mcg/actuation HFA aerosol inhaler 2 puff inhalation BID gabapentin 400 mg Capsule 400 mg PO BID@0900,1500 nystatin 100,000 unit/gram Powder 1 appl TOPICAL BID PRN (Reason: Rash) Protocol: Apply to: Apply to: under breasts, around groin Rx Instructions: apply to groin area, and under breasts (DME) insulin syringe-needle U-100 [BD Insulin Syringe Ultra-Fine] 1 mL 31 gauge x 5/16 syringe MISCELLANEOUS QID isosorbide mononitrate 30 mg tablet extended release 24 hr 1 tab PO DAILY clonidine HCl 0.1 mg Tablet 0.1 mg PO TID PRN (Reason: hyperarousal, anxiety, panic) Qty: 90 0RF Protocol: Hold for SBP< HOLD for SBP < : 90 hydralazine 25 mg Tablet 25 mg PO BID Qty: 60 0RF Protocol: Hold for SBP< HOLD for SBP < : 90 metoprolol succinate 50 mg tablet extended release 24 hr 50 mg PO DAILY prazosin 1 mg capsule 1 mg PO BEDTIME meclizine 25 mg tablet 25 mg PO TID PRN (Reason: Vertigo) risperidone 0.5 mg tablet 0.5 mg PO BID duloxetine 30 mg capsule,delayed release(DR/EC) 30 mg PO QAM insulin glargine [Lantus U-100 Insulin] 100 unit/mL solution 18 unit subcut BID Qty: 10 0RF bumetanide 1 mg Tablet 0.5 mg PO BEDTIME Qty: 30 0RF Protocol: Hold for SBP< HOLD for SBP < : 90 clonazepam [Klonopin] 0.5 mg tablet 0.5 mg PO BID Qty: 60 0RF doxycycline monohydrate 100 mg capsule 100 mg PO BID Qty: 20 0RF benzonatate 200 mg capsule 200 mg PO TID PRN (Reason: cough) Qty: 20 0RF trazodone 50 mg tablet 50 mg PO BEDTIME (DME) FreeStyle Lite Strips Strip See Rx Instructions .ROUTE BID Qty: 10 Rx Instructions: As directed (DME) lancets [FreeStyle Lancets] 28 gauge misc See Rx Instructions .ROUTE QID Qty: 100 Rx Instructions: As directed (DME) insulin syringe-needle U-100 [BD Insulin Syringe Ultra-Fine] 1 mL 31 gauge x 5/16 syringe See Rx Instructions .ROUTE QID Qty: 10 Rx Instructions: As directed Discharge Date/Time: 11/21/23 20:03 Print Language: Djiboutian
[2023-11-21 16:24] VITALS: BP 103/85; BP 160/0; PULSE 114; PULSE 129; RESP 21; O2SAT 95; O2SAT 96; BMI 54.3
--- NOTE | 2023-11-21 16:24 | ECG_ITS ---
Test Reason : CHEST PAIN Blood Pressure : / mmHG Vent. Rate : 116 BPM Atrial Rate : 116 BPM P-R Int : 142 ms QRS Dur : 098 ms QT Int : 366 ms P-R-T Axes : 063 034 088 degrees QTc Int : 508 ms Artifact in tracing probable Sinus tachycardia with frequent Premature ventricular complexes Nonspecific ST and T wave abnormality Abnormal ECG When compared with ECG of 09-NOV-2023 12:08, No significant change was found Referred By: Kamaljit Rojo Electronically Signed By:LUDA VICTORIA
[2023-11-21] MEDS: diphenhydrAMINE HCL 25 MG CAPSULE 50 MG PO (16:36)
[2023-11-21] MEDS: LORazepam 1 MG TABLET 2 MG PO (16:36)
[2023-11-21 17:26] VITALS: BP 86/42; PULSE 115; RESP 18; O2SAT 94
[2023-11-21] MEDS: QUEtiapine Fumarate 25 MG TABLET PO (17:29)
--- NOTE | 2023-11-21 17:31 | PC.NURSE ---
Pt SALAS, from home, stating she hasnt taken her anxiety meds, yelling/crying that she couldn't go to her granddaughters graduation. Tachycardic on arrival. VS taken, placed on tele, and changed over.
--- NOTE | 2023-11-21 19:12 | PC.NURSE ---
Spoke with patient's niece and the entire family is in [place] for a family members graduation and not able to come and get her. EMS called per Anusha as patient is oxygen dependant.
--- NOTE | 2023-11-21 19:13 | PC.NURSE ---
Ambulance transport to be booked for pt.
== END 2023-11-21 20:03 | disposition home or self-care (01) ==
PROVIDERS: Emergency Provider Emergency Medicine Emergency Medical Services; PCP Internal Medicine
DX: R07.9 Chest pain, unspecified (principal); F41.0 Panic disorder [episodic paroxysmal anxiety]; F43.23 Adjustment disorder with mixed anxiety and depressed mood; E11.22 Type 2 diabetes mellitus with diabetic chronic kidney disease; I13.0 Hypertensive heart and chronic kidney disease with heart failure and stage 1 through stage 4 chronic kidney disease, or unspecified chronic kidney disease; N18.30 Chronic kidney disease, stage 3 unspecified; I50.43 Acute on chronic combined systolic (congestive) and diastolic (congestive) heart failure; J44.9 Chronic obstructive pulmonary disease, unspecified; J96.11 Chronic respiratory failure with hypoxia; E78.00 Pure hypercholesterolemia, unspecified; G47.33 Obstructive sleep apnea (adult) (pediatric); E66.9 Obesity, unspecified; Z68.43 Body mass index [BMI] 50.0-59.9, adult; Z79.82 Long term (current) use of aspirin; Z79.4 Long term (current) use of insulin; Z79.899 Other long term (current) drug therapy; Z87.891 Personal history of nicotine dependence
CPT/HCPCS: 93005; 99283

== ENCOUNTER → 2023-11-21 16:24 | Outpatient (BNV) | payer OTHER, SELFPAY | PROVIDERS: Emergency Provider Emergency Medicine Emergency Medical Services; PCP Internal Medicine; Visit Provider Internal Medicine | DX: R94.31 Abnormal electrocardiogram [ECG] [EKG] (principal); R07.9 Chest pain, unspecified | CPT/HCPCS: 93010 ==

== ENCOUNTER 2023-11-24 08:51 | Outpatient (REF) | payer OTHER, SELFPAY ==
--- NOTE | ~2023-11-24 | MM_ITS ---
EXAMINATION: MM SCREENING DIGITAL BREAST TOMOSYNTHESIS, BILATERAL CLINICAL INFORMATION: Screening. Asymptomatic. Patient has positive family history of breast cancer. Patient has not had mammography since 04/10/2016. COMPARISON: Mammography: 04/10/2016, 04/10/2014, 04/06/2013. TECHNIQUE: Digital breast tomosynthesis is performed in both the craniocaudal and mediolateral oblique views along with computer-aided detection (CAD). Synthesized 2D images are generated from the tomosynthesis. According to the technologist's note, extremely difficult examination requiring 2 technologists, and the patient was unable to raise her arms for MLO views. Patient had poor tolerance for compression in the overall exam. Additional left full-field CC nipple in profile view was also obtained. FINDINGS: There are scattered areas of fibroglandular density (ACR BI-RADS breast composition Category b). There are vascular calcifications in both breasts. Positioning of both breasts is quite limited with neither nipple in profile with the exception of the added left CC view. There are no suspicious masses, suspicious grouped calcifications, or areas of architectural distortion in either breast. The parenchymal pattern is stable from prior exams. No obvious skin or axillary abnormality. MM/MM tomosynthesis screening BI IMPRESSION: No mammographic evidence of malignancy. Exam limitations as detailed. No obvious cystic change or suspicious findings. ASSESSMENT: BI-RADS BI-RADS 2 - Benign Findings RECOMMENDATION: Routine annual mammography screening. 1 year F/U This examination should not preclude the clinical evaluation of a suspicious palpable abnormality. This patient's information was entered into a reminder system with a target due date for their next mammogram.
--- NOTE | ~2023-11-24 | MM_ITS ---
EXAMINATION: BONE DENSITOMETRY CLINICAL INDICATION: Postmenopausal. COMPARISON: This is the patient's baseline examination. TECHNIQUE: Using a [employer] DXA System (software version: 13.1) manufactured by [employer], dual-energy x-ray absorptiometry was performed of the left forearm radius 33%. The images are of good technical quality. Summary results are attached. FINDINGS: LEFT FOREARM RADIUS 33%: BMD 0.939 g/cm2, Z-score 1.7, T-score 0.6, normal. IDENTIFIED RISK FACTORS: Early menopause, anticonvulsant, family history (parent hip fracture), low calcium intake, renal, secondary osteoporosis (type 1 diabetes, chronic liver disease). HISTORY OF FRACTURE: None listed. MEDICATIONS: None listed. MM/XR DEXA appendicular skeleton IMPRESSION: 1. DIAGNOSIS: Normal bone density based on the lowest T-score value of 0.6 in the forearm radius 33% applying World Health Organization criteria. 2. 10-YEAR FRACTURE RISK PREDICTION, FRAX: Not performed in this patient without a femoral neck BMD measurement. 3. Treatment Recommendations: NOF guidelines recommend consideration for treatment in postmenopausal women and men age 50 and older presenting with the following: -A hip or vertebral (clinical or morphometric) fracture. -T-score less than or equal to -2.5 at the femoral neck or spine after appropriate evaluation to exclude secondary causes. -Low bone mass at the hip or spine and a 10-year fracture probability by FRAX of greater than or equal to 3% for hip fracture or greater than or equal to 20% for major osteoporotic fracture based on the [place] adapted WHO algorithm. 4. Other Recommendations: All treatment decisions require clinical judgment and consideration of individual patient factors, including patient preferences, comorbidities, previous drug use, risk factors not captured in the FRAX model (e.g. frailty, falls, vitamin D deficiency, increased bone turnover, interval significant decline in bone density) and possible under or overestimation of fracture risk by FRAX. FUTURE SCAN RECOMMENDATION: People with diagnosed cases of osteoporosis or at high risk for fracture should have regular bone mineral density tests. For patients eligible for Medicare, routine testing is allowed once every 2 years. The testing frequency can be increased to one year for patients who have rapidly progressing disease, those who are receiving or discontinuing medical therapy to restore bone mass, or have additional risk factors.
== END 2023-11-24 08:52 | disposition home or self-care (01) ==
LOC: HO.MAMMO 08:51
PROVIDERS: PCP Internal Medicine; Visit Provider Internal Medicine
DX: Z12.31 Encounter for screening mammogram for malignant neoplasm of breast (principal); Z13.820 Encounter for screening for osteoporosis; Z78.0 Asymptomatic menopausal state
CPT/HCPCS: 77063; 77067; 77081

== ENCOUNTER → 2023-11-24 09:15 | Outpatient (BNV) | payer OTHER, SELFPAY | PROVIDERS: PCP Internal Medicine; Visit Provider Radiology Diagnostic Radiology | DX: Z12.31 Encounter for screening mammogram for malignant neoplasm of breast (principal) | CPT/HCPCS: 77063; 77067 ==

== ENCOUNTER 2023-12-05 17:53 | Emergency (ER) | payer OTHER, SELFPAY ==
--- NOTE | ~2023-12-05 | XR_ITS ---
EXAMINATION: XR chest 1V XR lumbar spine 2-3V CLINICAL INFORMATION: Shortness of breath, pain COMPARISON: Chest radiograph 11/09/2023, CT abdomen/pelvis 08/25/2022 TECHNIQUE: Frontal view of the chest, 1 image. AP and lateral view of the lumbar spine and lateral lumbosacral spine, 3 images. FINDINGS: Chest: The lungs are well expanded. No focal consolidation, significant effusion or pneumothorax. Central pulmonary vascular congestion without overt edema. The enlarged cardiomediastinal silhouette is unchanged. No acute osseous abnormality. Lumbar spine: Vertebral body heights are normal. No fracture or spondylolisthesis. Intervertebral disc heights are maintained without significant degenerative disc disease. Bone mineralization is normal. Extensively calcified bilateral renal arteries, splenic artery and bilateral internal and external iliac arteries. Imaged portions of the sacroiliac joints are normal. XR/XR lumbar spine 2-3V IMPRESSION: 1. Chest: Central pulmonary vascular congestion without overt edema. 2. Lumbar spine: No acute fracture or subluxation of the lumbar spine. 3. Extensively calcified bilateral renal arteries, splenic artery and bilateral internal and external iliac arteries.
--- NOTE | ~2023-12-05 | XR_ITS ---
EXAMINATION: XR chest 1V XR lumbar spine 2-3V CLINICAL INFORMATION: Shortness of breath, pain COMPARISON: Chest radiograph 11/09/2023, CT abdomen/pelvis 08/25/2022 TECHNIQUE: Frontal view of the chest, 1 image. AP and lateral view of the lumbar spine and lateral lumbosacral spine, 3 images. FINDINGS: Chest: The lungs are well expanded. No focal consolidation, significant effusion or pneumothorax. Central pulmonary vascular congestion without overt edema. The enlarged cardiomediastinal silhouette is unchanged. No acute osseous abnormality. Lumbar spine: Vertebral body heights are normal. No fracture or spondylolisthesis. Intervertebral disc heights are maintained without significant degenerative disc disease. Bone mineralization is normal. Extensively calcified bilateral renal arteries, splenic artery and bilateral internal and external iliac arteries. Imaged portions of the sacroiliac joints are normal. XR/XR chest 1V IMPRESSION: 1. Chest: Central pulmonary vascular congestion without overt edema. 2. Lumbar spine: No acute fracture or subluxation of the lumbar spine. 3. Extensively calcified bilateral renal arteries, splenic artery and bilateral internal and external iliac arteries.
[2023-12-05 18:05] VITALS: BP 110/56; PULSE 128; PULSE 92; RESP 18; TEMP 36.1; O2SAT 95; O2SAT 96; BMI 49.4
--- NOTE | 2023-12-05 18:30 | ECG_ITS ---
Test Reason : SOB Blood Pressure : / mmHG Vent. Rate : 083 BPM Atrial Rate : 083 BPM P-R Int : 158 ms QRS Dur : 104 ms QT Int : 420 ms P-R-T Axes : 062 029 060 degrees QTc Int : 493 ms Sinus rhythm with occasional Premature ventricular complexes Cannot rule out Anterior infarct , age undetermined Abnormal ECG When compared with ECG of 21-NOV-2023 16:27, ST no longer depressed in Anterior leads Referred By: Mart French Electronically Signed By:GARTH RECINOS MD
--- NOTE | 2023-12-05 19:20 | ED.GENADULT ---
HPI - General Adult General Chief complaint: General Medical Stated complaint: SOB, full body pain, leg swelling, on 2L w/ EMS Time Seen by Provider: 12/05/23 18:14 Source: patient, RN notes reviewed and old records reviewed Mode of arrival: EMS Limitations: no limitations History of Present Illness HPI narrative: 63-year-old female with past medical history significant for mood disorder, anxiety, chronic respiratory failure with hypoxia, congestive heart failure, depression, adjustment disorder panic disorder, stasis dermatitis, sleep apnea, COPD, diabetes, hypertension, hyperlipidemia presents for evaluation of ?pain all over. ? Patient reports lower back pain for the last few days. She also reports bilateral leg swelling for 1 week. She states that she does have some shortness of breath. Patient is well-known to this emergency department, she frequently visits with complaints of anxiety However she also has a history of COPD and congestive heart failure. She arrives tachycardic to 120 on arrival but her oxygen saturation is 95% on room air. Respiratory rate is 18, she is afebrile. Denies any recent falls or trauma Related Data Home Medications ?Medication ?Instructions ?Recorded ?Confirmed aspirin 81 mg tablet,delayed 81 mg PO DAILY 11/23/20 11/06/23 release fluticasone propionate 110 2 puff inhalation BID 11/23/20 11/06/23 mcg/actuation HFA aerosol inhaler (Flovent HFA) simvastatin 20 mg tablet 20 mg PO BEDTIME 11/23/20 11/06/23 blood sugar diagnostic (FreeStyle #10 ea 06/25/22 03/26/23 Lite Strips) insulin syringe-needle U-100 1 mL #10 ea 06/25/22 03/26/23 31 gauge x 5/16 (BD Insulin Syringe Ultra-Fine) lancets 28 gauge (FreeStyle #100 ea 06/25/22 03/26/23 Lancets) gabapentin 400 mg capsule 400 mg PO BID@0900,1500 09/08/22 11/06/23 nystatin 100,000 unit/gram topical 1 appl topical BID PRN Rash 09/08/22 11/06/23 powder insulin syringe-needle U-100 1 mL 09/27/22 03/26/23 31 gauge x 5/16 (BD Insulin Syringe Ultra-Fine) isosorbide mononitrate 30 mg 1 tab PO DAILY 09/28/22 11/06/23 tablet,extended release 24 hr trazodone 50 mg tablet 50 mg PO BEDTIME 04/27/23 11/06/23 duloxetine 30 mg capsule,delayed 30 mg PO QAM 09/21/23 11/06/23 release meclizine 25 mg tablet 25 mg PO TID PRN Vertigo 09/21/23 11/06/23 metoprolol succinate 50 mg 50 mg PO DAILY 09/21/23 11/06/23 tablet,extended release 24 hr prazosin 1 mg capsule 1 mg PO BEDTIME 09/21/23 11/06/23 risperidone 0.5 mg tablet 0.5 mg PO BID 09/21/23 11/06/23 Previous Rx's ?Medication ?Instructions ?Recorded insulin lispro 100 unit/mL See Protocol subcut QIDACHS #1 mL 01/16/21 subcutaneous solution (Humalog U-100 Insulin) clonidine HCl 0.1 mg tablet 0.1 mg PO TID PRN hyperarousal, 04/01/22 anxiety, panic #90 tabs hydralazine 25 mg tablet 25 mg PO BID #60 tabs 04/08/22 blood-glucose meter (FreeStyle #1 ea 09/02/22 Lite Meter kit) bumetanide 1 mg tablet 0.5 mg PO BEDTIME #30 tabs 09/28/23 clonazepam 0.5 mg tablet (Klonopin) 0.5 mg PO BID #60 tabs 09/28/23 insulin glargine 100 unit/mL 18 unit (0.18 mL) subcut BID #10 mL 09/28/23 subcutaneous solution (Lantus U-100 Insulin) benzonatate 200 mg capsule 200 mg PO TID PRN cough #20 caps 11/09/23 doxycycline monohydrate 100 mg 100 mg PO BID #20 caps 11/09/23 capsule dulaglutide 0.75 mg/0.5 mL 0.75 mg (0.5 mL) subcut QWEEK #2 mL 11/29/23 subcutaneous pen injector ([employer]) nystatin 100,000 unit/gram topical 1 appl topical TID 1 week #30 grams 12/05/23 powder Allergies Allergy/AdvReac Type Severity Reaction Status Date / Time ibuprofen Allergy Intermediate vomiting, Verified 12/05/23 18:07 itching acetaminophen [Tylenol] Allergy Unknown Unknown Verified 12/05/23 18:07 codeine AdvReac Severe Anaphylaxis Verified 12/05/23 18:07 morphine AdvReac Intermediate vomiting Verified 12/05/23 18:07 vancomycin AdvReac Intermediate Itching Verified 12/05/23 18:07 Review of Systems Constitutional: Constitutional: Reports body ache(s), Denies chills, Denies fever(s), Denies frequent falls and Denies headache(s) Eyes: Eyes: Denies blurry vision ENT: Denies headache(s) and Denies sore throat Cardiovascular: Cardiovascular: Denies chest pain, Reports leg edema and Reports dyspnea Respiratory: Respiratory: Denies cough and Reports dyspnea Gastrointestinal: Gastrointestinal: Denies abdominal pain, Denies nausea and Denies vomiting Musculoskeletal: Musculoskeletal: Reports back pain Integumentary/Breasts: Skin/Breast: Denies rash Neurologic: Denies frequent falls and Denies headache(s) Psychiatric: Psychiatric: Reports anxiety PMFSH Past Medical History Medical History Mood disorder Elevated d-dimer FELICIA (acute kidney injury) Abdominal pain Constipation Chronic respiratory failure with hypoxia Stercoral colitis Decubitus ulcer Hypoxia CHF exacerbation MDD (major depressive disorder), recurrent episode, moderate Adjustment disorder with mixed anxiety and depressed mood Panic disorder Cellulitis of right lower extremity Stasis dermatitis of both legs DANIEL (obstructive sleep apnea) Asthma Hyperglycemia due to diabetes mellitus COPD (chronic obstructive pulmonary disease) Congestive heart failure Obesity hypoventilation syndrome CKD (chronic kidney disease) stage 3, GFR 30-59 ml/min NICM (nonischemic cardiomyopathy) Acute on chronic combined systolic and diastolic CHF (congestive heart failure) Morbid obesity Diabetic neuropathy, painful Chronic pain High cholesterol Depression Hypertension Diabetes Surgical History History of surgery Hx of cholecystectomy Family History Family History Mother HTN (hypertension) Diabetes CAD (coronary artery disease) Father HTN (hypertension) Diabetes CAD (coronary artery disease) Maternal Grandmother CAD (coronary artery disease) Social History Social History Household Members: None Household Members Other:: GRANDSON Housing: Condominium 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 Do you presently have visiting nurse or other home services: Yes ([facility] twice daily) Unable to assess alcohol history related to: Unable to respond and Refusing to respond Alcohol intake: former Comment: 1:1 Patient Tobacco Use Status: Former Tobacco user Quit Date: 1999 Tobacco use type: Cigarette Years Smoked: 38 Smoked in Last 30 Days: No e-Cigarette/Vaping Use: Never Used Second Hand Smoke Exposure: No Use of substances other than those prescribed or required for medical reasons: No Substance Use Type: Former Substance User Advance Directives: Yes Advance Directives on File: Yes Advance Directives Date on File: 04/30/23 service: No Current occupational status: disabled Physical Exam ED Vital Signs: Vital Signs - 24 hr 12/05/23 18:05 Temperature 97 F Pulse Rate 128 H Respiratory Rate 18 Pulse Oximetry 95 Oxygen Delivery Method Room Air BMI result Body Mass Index 49.4 Const General: healthy appearing, comfortable, no acute distress, alert and awake Nutritional Appearance: well nourished Orientation/consciousness: patient oriented x3 HENMT Head: Yes normocephalic and Yes atraumatic Eyes Eyelids: Yes eyelids normal Conjunctivae: conjunctivae normal Sclerae: sclerae normal Corneas: corneas normal Pupils: Equal, round and reactive pupils present EOM: EOMs intact bilaterally Neck Neck: Yes full ROM Resp Effort & Inspection: normal respiratory effort, able to speak in complete sentences, no audible wheezes and not labored Auscultation: clear to auscultation bilaterally Cardio Other: 3+ bilateral pitting edema to lower extremities. Rate: tachycardic Rhythm: regular rhythm GI Inspection: No distended Palpation (GI): Soft to palpation, not firm, nontender, no guarding and not rigid Skin General skin exam: elasticity normal Neuro General: patient oriented x3 Cranial nerves: Yes Equal, round and reactive pupils present and Yes Bilaterally intact EOM present Cognition (Neuro): normal cognition Extrem Other: Moving all extremities well without any obvious deformities Course Reevaluation(s) Reevaluation #1: Nursing brought to my attention the patient had suspected Paulette infection in the abdominal skin folds. The area did appear moist, erythematous, consistent with a yeast infection we will treat with nystatin powder Time: 21:48 Medical Decision Making Medical Decision Making MDM Narrative: 63-year-old male with past medical history as documented above presents for evaluation of multiple complaints including leg swelling and back pain. She does of significant respiratory history complain for chest x-ray, viral swabs, basic labs. We will get an x-ray lumbar spine to evaluate the patient's lower back pain however she has not had any recent falls or trauma. She has no neurologic deficits to suggest spinal cord injury. The patient was tachycardic on arrival which is likely related to her anxiety as she was quite anxious and repeatedly explaining ?help me. Differential Diagnosis Differential Diagnoses: The differential diagnosis associated with the presentation includes Congestive heart failure COPD Anxiety Dependent edema Leg swelling Low back pain Muscle strain Radiculopathy Admission/Observation Consideration of admission/observation: Escalation of care including admission/observation considered Consider admission due to shortness of breath with history of CHF and COPD. The patient has had no intervention reports feeling better. Her chest x-ray shows pulmonary vascular congestion with no overt pulmonary edema. She is already on Bumex codeine b.i.d. her vital signs are stable and she is requesting discharge home Lab Data MDM Lab Attestation statement: I reviewed the patient's lab results. Patient has no leukocytosis. She does have a chronic normocytic anemia, her hemoglobin is 8.7 hematocrit 29.7. Sodium, potassium within normal limits, her CO2 is elevated 32 which is consistent with a known history of COPD. She has chronic kidney disease with a BUN of 51 and a creatinine of 1.57. Patient's glucose is elevated to 166. No evidence of DKA. Her BNP is elevated to 127, but again she is already on diuretics and has no evidence of respiratory failure. 12/05/23 19:44 12/05/23 19:44 Labs: Lab Results 12/05/23 12/05/23 Range/Units 19:44 19:48 WBC 9.2 (4.8-10.8) X10*3/uL RBC 3.40 L (4.20-5.50) X10*6/uL Hgb 8.7 L (12.0-16.0) g/dl Hct 29.7 L (37.0-47.0) % MCV 87.4 (80.0-98.0) fL MCH 25.6 L (27.0-33.0) pg MCHC 29.3 L (31.0-35.0) g/dl RDW 17.3 H (11.0-16.0) % Plt Count 164 (160-400) X10*3/uL MPV 8.5 L (9.4-12.3) fL Immature Gran % (Auto) 0.2 (0.0-0.4) % Neut % (Auto) 78.7 H (45-73) % Lymph % (Auto) 11.1 L (20-40) % [place] % (Auto) 8.1 (2-11) % Eos % (Auto) 1.7 (0-4) % Baso % (Auto) 0.2 (0-2) % Lymph # (Auto) 1.0 L (1.2-4.9) X10*3/uL [place] # (Auto) 0.8 (0.1-1.2) X10*3/uL Eos # (Auto) 0.2 (0.0-0.4) X10*3/uL Baso # (Auto) 0.0 (0.0-0.2) X10*3/uL Abs Immat Gran (auto) 0.02 (0.00-0.03) X10*3/uL Absolute Neuts (auto) 7.3 (2.0-8.3) x10*3/uL Absolute Nucleated RBC 0.000 (0.0-0.012) X10*3/uL Nucleated RBC % (auto) 0.0 (0.0-0.2) /100WBC PT 12.3 (11.1-13.3) SEC INR 1.0 (0.9-1.1) Sodium 145 (135-145) mmol/L Potassium 4.6 (3.3-5.1) mmol/L Chloride 104 (96-108) mmol/L Carbon Dioxide 32 H (22-29) mmol/L Anion Gap 14 (12-20) BUN 51 H (9-16) mg/dL Creatinine 1.57 H (0.5-1.4) mg/dL Estim Creat Clear Calc 46.3 Estimated GFR 33 Random Glucose 166 H (60-115) mg/dL Calcium 8.0 L (8.4-10.2) mg/dL Total Bilirubin 0.2 (0.0-1.0) mg/dL AST 10 (5-31) U/L ALT 6 (0-31) U/L Alkaline Phosphatase 68 (39-117) U/L Troponin I High Sens 10.1 (<3.5-17.0) ng/L B-Natriuretic Peptide 127 H (<100) pg/mL Total Protein 6.5 (6.5-8.0) g/dL Albumin 3.4 L (3.5-5.0) g/dL Lipase 7 L (8-78) U/L Influenza Type A (PCR) NEGATIVE (Negative) Influenza Type B (PCR) NEGATIVE (Negative) RSV RNA Qual (PCR) NEGATIVE (Negative) SARS-CoV-2 RNA (RT-PCR) NEGATIVE (Negative) Discharge Plan Discharge Clinical Impression: Anxiety, Low back pain, Leg swelling, Paulette infection Patient Disposition: Home, Self-Care Instructions: Heart Failure (ED) Additional Instructions: Decreased fluid intake. Take your medications as prescribed especially your bumetanide Decrease salt intake Apply nystatin powder 3 times a day for 2 weeks Follow-up with your primary doctor Return for new or worsening symptoms Prescriptions: New nystatin 100,000 unit/gram powder 1 appl topical TID 7 Days Qty: 30 0RF No Action (DME) blood-glucose meter [FreeStyle Lite Meter] Kit See Rx Instructions .Route Qty: 1 0RF Rx Instructions: As directed checks POC 4 X/day Trulicity 0.75 mg/0.5 mL pen injector 0.75 mg subcut QWEEK Qty: 2 4RF insulin lispro [Humalog U-100 Insulin] 100 unit/mL Solution See Protocol subcut QIDACHS Qty: 1 0RF Protocol: Insulin Correction Scale Less than or equal to 110 ---- Give (units): 0 111 to 150 Give (units): 0 151 to 200 Give (units): 2 201 to 250 Give (units): 4 251 to 300 Give (units): 6 301 to 350 Give (units): 8 Greater than 350 Give (units): 10 Call MD if Blood Glucose > : 350 Rx Instructions: sliding scale aspirin 81 mg tablet,delayed release (DR/EC) 81 mg PO DAILY simvastatin 20 mg tablet 20 mg PO BEDTIME fluticasone propionate [Flovent HFA] 110 mcg/actuation HFA aerosol inhaler 2 puff inhalation BID gabapentin 400 mg Capsule 400 mg PO BID@0900,1500 nystatin 100,000 unit/gram Powder 1 appl TOPICAL BID PRN (Reason: Rash) Protocol: Apply to: Apply to: under breasts, around groin Rx Instructions: apply to groin area, and under breasts (DME) insulin syringe-needle U-100 [BD Insulin Syringe Ultra-Fine] 1 mL 31 gauge x 5/16 syringe MISCELLANEOUS QID isosorbide mononitrate 30 mg tablet extended release 24 hr 1 tab PO DAILY clonidine HCl 0.1 mg Tablet 0.1 mg PO TID PRN (Reason: hyperarousal, anxiety, panic) Qty: 90 0RF Protocol: Hold for SBP< HOLD for SBP < : 90 hydralazine 25 mg Tablet 25 mg PO BID Qty: 60 0RF Protocol: Hold for SBP< HOLD for SBP < : 90 metoprolol succinate 50 mg tablet extended release 24 hr 50 mg PO DAILY prazosin 1 mg capsule 1 mg PO BEDTIME meclizine 25 mg tablet 25 mg PO TID PRN (Reason: Vertigo) risperidone 0.5 mg tablet 0.5 mg PO BID duloxetine 30 mg capsule,delayed release(DR/EC) 30 mg PO QAM insulin glargine [Lantus U-100 Insulin] 100 unit/mL solution 18 unit subcut BID Qty: 10 0RF bumetanide 1 mg Tablet 0.5 mg PO BEDTIME Qty: 30 0RF Protocol: Hold for SBP< HOLD for SBP < : 90 clonazepam [Klonopin] 0.5 mg tablet 0.5 mg PO BID Qty: 60 0RF doxycycline monohydrate 100 mg capsule 100 mg PO BID Qty: 20 0RF benzonatate 200 mg capsule 200 mg PO TID PRN (Reason: cough) Qty: 20 0RF trazodone 50 mg tablet 50 mg PO BEDTIME (DME) FreeStyle Lite Strips Strip See Rx Instructions .ROUTE BID Qty: 10 Rx Instructions: As directed (DME) lancets [FreeStyle Lancets] 28 gauge misc See Rx Instructions .ROUTE QID Qty: 100 Rx Instructions: As directed (DME) insulin syringe-needle U-100 [BD Insulin Syringe Ultra-Fine] 1 mL 31 gauge x 5/16 syringe See Rx Instructions .ROUTE QID Qty: 10 Rx Instructions: As directed Print Language: Yoruba
[2023-12-05 19:47] LABS: MANUAL DIFF FLAG NO
[2023-12-05 19:49] LABS: Basophils Percent Auto 0.2 % (0-2); Eosinophils Absolute Auto 0.2 X10*3/uL (0.0-0.4); Eosinophils Percent Auto 1.7 % (0-4); Hematocrit 29.7 % (37.0-47.0); Hemoglobin 8.7 g/dl (12.0-16.0); Imm Gran Abs Auto 0.02 X10*3/uL (0.00-0.03); Imm Gran Pct Auto 0.2 % (0.0-0.4); Lymphocytes Percent Auto 11.1 % (20-40); Mean Corpuscular HGB Conc 29.3 g/dl (31.0-35.0); Mean Corpuscular Hemoglobin 25.6 pg (27.0-33.0); Mean Corpuscular Volume 87.4 fL (80.0-98.0); Mean Platelet Volume 8.5 fL (9.4-12.3); Monocytes Absolute Auto 0.8 X10*3/uL (0.1-1.2); Monocytes Percent Auto 8.1 % (2-11); Neutrophils Absolute Auto 7.3 x10*3/uL (2.0-8.3); Neutrophils Percent Auto 78.7 % (45-73); Platelet Count 164 X10*3/uL (160-400); Red Cell Distribution Width 17.3 % (11.0-16.0); White Blood Count 9.2 X10*3/uL (4.8-10.8)
[2023-12-05 20:02] LABS: Alanine Aminotransferase 6 U/L (0-31); Albumin Level 3.4 g/dL (3.5-5.0); Alkaline Phosphatase 68 U/L (39-117); Anion Gap 14 (12-20); Aspartate Amino Transferase 10 U/L (5-31); Bilirubin Total 0.2 mg/dL (0.0-1.0); Blood Urea Nitrogen 51 mg/dL (9-16); Carbon Dioxide 32 mmol/L (22-29); Chloride 104 mmol/L (96-108); Creatinine Clr Calc Pharmacy 46.3; Estimated Glomerular Filt Rate 33; Glucose Random 166 mg/dL (60-115); Lipase 7 U/L (8-78); Potassium 4.6 mmol/L (3.3-5.1); Sodium 145 mmol/L (135-145); Total Protein 6.5 g/dL (6.5-8.0)
[2023-12-05 20:09] LABS: Troponin-I High Sensitivity 10.1 ng/L (<3.5-17.0)
[2023-12-05 20:17] LABS: B Type Natriuretic Peptide 127 pg/mL (<100)
[2023-12-05 20:26] LABS: Influenza A PCR NEGATIVE (Negative); Influenza B PCR NEGATIVE (Negative); Resp Syncy Virus RNA Qual PCR NEGATIVE (Negative); SARS COV2 PCR INHOUSE NEGATIVE (Negative)
[2023-12-05 20:35] LABS: Prothrombin Time 12.3 SEC (11.1-13.3)
[2023-12-06 03:19] VITALS: BP 114/91; PULSE 99; RESP 18; TEMP 36.6; O2SAT 96
== END 2023-12-05 21:30 | disposition home or self-care (01) ==
PROVIDERS: Physician Assistant; Emergency Provider Internal Medicine; PCP Internal Medicine
DX: F41.9 Anxiety disorder, unspecified (principal); M54.50 Low back pain, unspecified; B37.2 Candidiasis of skin and nail; M79.89 Other specified soft tissue disorders; R07.9 Chest pain, unspecified; J96.11 Chronic respiratory failure with hypoxia; E11.22 Type 2 diabetes mellitus with diabetic chronic kidney disease; I13.0 Hypertensive heart and chronic kidney disease with heart failure and stage 1 through stage 4 chronic kidney disease, or unspecified chronic kidney disease; N18.30 Chronic kidney disease, stage 3 unspecified; I11.0 Hypertensive heart disease with heart failure; I50.9 Heart failure, unspecified; Z03.818 Encounter for observation for suspected exposure to other biological agents ruled out; Z79.899 Other long term (current) drug therapy
CPT/HCPCS: 0241U; 36415; 71045; 72100; 80053; 83690; 83880; 84484; 85025; 85610; 93005; 99283; 99284

== ENCOUNTER → 2023-12-05 18:30 | Outpatient (BNV) | payer OTHER, SELFPAY | PROVIDERS: Emergency Provider Internal Medicine; PCP Internal Medicine; Visit Provider Internal Medicine Cardiovascular Disease | DX: R94.31 Abnormal electrocardiogram [ECG] [EKG] (principal) | CPT/HCPCS: 93010 ==

== ENCOUNTER 2023-12-06 18:11 | Emergency (ER) | payer OTHER, SELFPAY ==
[2023-12-06 18:38] VITALS: BP 92/57; PULSE 90; RESP 20; TEMP 36.2; O2SAT 97; BMI 49.4
[2023-12-06 18:53] VITALS: BP 98/54; PULSE 90; O2SAT 96
[2023-12-07 02:49] VITALS: BP 131/59; PULSE 96; RESP 17; TEMP 36.6; O2SAT 97
== END 2023-12-07 05:58 | disposition left against medical advice (07) ==
PROVIDERS: Emergency Provider Emergency Medicine; PCP Internal Medicine
DX: F41.9 Anxiety disorder, unspecified (principal); R06.02 Shortness of breath; Z53.21 Procedure and treatment not carried out due to patient leaving prior to being seen by health care provider
CPT/HCPCS: 99282

== ENCOUNTER 2023-12-20 22:39 | Emergency (ER) | payer OTHER, SELFPAY ==
[2023-12-20 22:43] VITALS: BP 110/60; PULSE 90; O2SAT 97
--- NOTE | 2023-12-20 23:22 | ECG_ITS ---
Test Reason : CHEST PAIN Blood Pressure : / mmHG Vent. Rate : 091 BPM Atrial Rate : 091 BPM P-R Int : 168 ms QRS Dur : 100 ms QT Int : 394 ms P-R-T Axes : 054 033 055 degrees QTc Int : 484 ms Sinus rhythm with occasional , and consecutive Premature ventricular complexes Abnormal ECG When compared with ECG of 05-DEC-2023 19:56, No significant change was found Referred By: Generic ED Physician Electronically Signed By:GARTH RECINOS MD
[2023-12-20 23:23] VITALS: BP 116/53; PULSE 89; RESP 20; TEMP 36.8; O2SAT 100; BMI 49.4
[2023-12-20 23:53] LABS: MANUAL DIFF FLAG NO
[2023-12-21 00:01] LABS: Basophils Percent Auto 0.4 % (0-2); Eosinophils Absolute Auto 0.2 X10*3/uL (0.0-0.4); Eosinophils Percent Auto 2.1 % (0-4); Hematocrit 31.8 % (37.0-47.0); Hemoglobin 9.4 g/dl (12.0-16.0); Imm Gran Abs Auto 0.04 X10*3/uL (0.00-0.03); Imm Gran Pct Auto 0.5 % (0.0-0.4); Lymphocytes Absolute Auto 1.1 X10*3/uL (1.2-4.9); Lymphocytes Percent Auto 13.2 % (20-40); Mean Corpuscular HGB Conc 29.6 g/dl (31.0-35.0); Mean Corpuscular Hemoglobin 25.4 pg (27.0-33.0); Mean Corpuscular Volume 85.9 fL (80.0-98.0); Mean Platelet Volume 9.1 fL (9.4-12.3); Monocytes Absolute Auto 0.7 X10*3/uL (0.1-1.2); Monocytes Percent Auto 8.3 % (2-11); Neutrophils Absolute Auto 6.4 x10*3/uL (2.0-8.3); Neutrophils Percent Auto 75.5 % (45-73); Platelet Count 183 X10*3/uL (160-400); Red Cell Distribution Width 17.3 % (11.0-16.0); White Blood Count 8.4 X10*3/uL (4.8-10.8)
[2023-12-21 00:18] LABS: Anion Gap 17 (12-20); Blood Urea Nitrogen 43 mg/dL (9-16); Calcium 8.7 mg/dL (8.4-10.2); Carbon Dioxide 29 mmol/L (22-29); Chloride 104 mmol/L (96-108); Glucose Random 96 mg/dL (60-115); Potassium 4.4 mmol/L (3.3-5.1); Sodium 146 mmol/L (135-145)
[2023-12-21 00:50] LABS: Creatinine Clr Calc Pharmacy 37.3; Estimated Glomerular Filt Rate 26
[2023-12-21 03:33] VITALS: BP 151/55; PULSE 85; RESP 13; TEMP 36.6; O2SAT 98
[2023-12-21 06:16] VITALS: BP 114/49; PULSE 84; RESP 15; TEMP 36.6; O2SAT 99
[2023-12-21 07:23] VITALS: BP 115/58; PULSE 78; RESP 17; TEMP 36.8; O2SAT 98
--- NOTE | 2023-12-21 07:23 | ED_ITS ---
HPI - General Adult General Chief complaint: General Medical Stated complaint: Chest pain, sharp mid sternal Time Seen by Provider: 12/21/23 07:21 Source: patient and EMS Mode of arrival: EMS Limitations: no limitations History of Present Illness ED Provider: Dr. Figueroa HPI narrative: patient presents with diffuse myalgias. Patient also had chest pain. She states that her legs are always swollen Onset (ago): day(s) Severity: mild Quality: aching Pain Consistency: constant Related Data Home Medications ?Medication ?Instructions ?Recorded ?Confirmed aspirin 81 mg tablet,delayed 81 mg PO DAILY 11/23/20 11/06/23 release fluticasone propionate 110 2 puff inhalation BID 11/23/20 11/06/23 mcg/actuation HFA aerosol inhaler (Flovent HFA) simvastatin 20 mg tablet 20 mg PO BEDTIME 11/23/20 11/06/23 blood sugar diagnostic (FreeStyle #10 ea 06/25/22 03/26/23 Lite Strips) insulin syringe-needle U-100 1 mL #10 ea 06/25/22 03/26/23 31 gauge x 5/16 (BD Insulin Syringe Ultra-Fine) lancets 28 gauge (FreeStyle #100 ea 06/25/22 03/26/23 Lancets) gabapentin 400 mg capsule 400 mg PO BID@0900,1500 09/08/22 11/06/23 nystatin 100,000 unit/gram topical 1 appl topical BID PRN Rash 09/08/22 11/06/23 powder insulin syringe-needle U-100 1 mL 09/27/22 03/26/23 31 gauge x 5/16 (BD Insulin Syringe Ultra-Fine) isosorbide mononitrate 30 mg 1 tab PO DAILY 09/28/22 11/06/23 tablet,extended release 24 hr trazodone 50 mg tablet 50 mg PO BEDTIME 04/27/23 11/06/23 duloxetine 30 mg capsule,delayed 30 mg PO QAM 09/21/23 11/06/23 release meclizine 25 mg tablet 25 mg PO TID PRN Vertigo 09/21/23 11/06/23 metoprolol succinate 50 mg 50 mg PO DAILY 09/21/23 11/06/23 tablet,extended release 24 hr prazosin 1 mg capsule 1 mg PO BEDTIME 09/21/23 11/06/23 risperidone 0.5 mg tablet 0.5 mg PO BID 09/21/23 11/06/23 Previous Rx's ?Medication ?Instructions ?Recorded insulin lispro 100 unit/mL See Protocol subcut QIDACHS #1 mL 01/16/21 subcutaneous solution (Humalog U-100 Insulin) clonidine HCl 0.1 mg tablet 0.1 mg PO TID PRN hyperarousal, 04/01/22 anxiety, panic #90 tabs hydralazine 25 mg tablet 25 mg PO BID #60 tabs 04/08/22 blood-glucose meter (FreeStyle #1 ea 09/02/22 Lite Meter kit) bumetanide 1 mg tablet 0.5 mg PO BEDTIME #30 tabs 09/28/23 clonazepam 0.5 mg tablet (Klonopin) 0.5 mg PO BID #60 tabs 09/28/23 insulin glargine 100 unit/mL 18 unit (0.18 mL) subcut BID #10 mL 09/28/23 subcutaneous solution (Lantus U-100 Insulin) benzonatate 200 mg capsule 200 mg PO TID PRN cough #20 caps 11/09/23 doxycycline monohydrate 100 mg 100 mg PO BID #20 caps 11/09/23 capsule dulaglutide 0.75 mg/0.5 mL 0.75 mg (0.5 mL) subcut QWEEK #2 mL 11/29/23 subcutaneous pen injector (Trulicity) nystatin 100,000 unit/gram topical 1 appl topical TID 1 week #30 grams 12/05/23 powder furosemide 40 mg tablet (Lasix) 40 mg PO DAILY #20 tabs 12/21/23 Allergies Allergy/AdvReac Type Severity Reaction Status Date / Time ibuprofen Allergy Intermediate vomiting, Verified 12/20/23 23:31 itching acetaminophen [Tylenol] Allergy Unknown Unknown Verified 12/20/23 23:31 codeine AdvReac Severe Anaphylaxis Verified 12/20/23 23:31 morphine AdvReac Intermediate vomiting Verified 12/20/23 23:31 vancomycin AdvReac Intermediate Itching Verified 12/20/23 23:31 Review of Systems 2 Review of Systems: Yes all other systems are reviewed and are negative Neurologic: Denies Sensory deficit (Neuro) PMFSH Past Medical History Medical History Mood disorder Elevated d-dimer FELICIA (acute kidney injury) Abdominal pain Constipation Chronic respiratory failure with hypoxia Stercoral colitis Decubitus ulcer Hypoxia CHF exacerbation MDD (major depressive disorder), recurrent episode, moderate Adjustment disorder with mixed anxiety and depressed mood Panic disorder Cellulitis of right lower extremity Stasis dermatitis of both legs DANIEL (obstructive sleep apnea) Asthma Hyperglycemia due to diabetes mellitus COPD (chronic obstructive pulmonary disease) Congestive heart failure Obesity hypoventilation syndrome CKD (chronic kidney disease) stage 3, GFR 30-59 ml/min NICM (nonischemic cardiomyopathy) Acute on chronic combined systolic and diastolic CHF (congestive heart failure) Morbid obesity Diabetic neuropathy, painful Chronic pain High cholesterol Depression Hypertension Diabetes Surgical History History of surgery Hx of cholecystectomy Family History Family History Mother HTN (hypertension) Diabetes CAD (coronary artery disease) Father HTN (hypertension) Diabetes CAD (coronary artery disease) Maternal Grandmother CAD (coronary artery disease) Social History Social History Household Members: None Household Members Other:: GRANDSON Housing: Condominium 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 twice daily) Unable to assess alcohol history related to: Unable to respond and Refusing to respond Alcohol intake: never Comment: 1:1 Patient Tobacco Use Status: Former Tobacco user Tobacco use type: Cigarette Years Smoked: 38 Smoked in Last 30 Days: No e-Cigarette/Vaping Use: Never Used Second Hand Smoke Exposure: No Use of substances other than those prescribed or required for medical reasons: No Substance Use Type: Former Substance User Advance Directives: Yes Advance Directives on File: Yes Advance Directives Date on File: 04/30/23 Do you have a plan to hurt others: No Plan Patient : No service: No Current occupational status: disabled Physical Exam ED Vital Signs: Vital Signs - 24 hr 12/20/23 23:23 12/21/23 03:33 12/21/23 06:16 Temperature 98.3 F 97.8 F 97.8 F Pulse Rate 89 85 84 Respiratory Rate 20 13 15 Blood Pressure 116/53 L 151/55 H 114/49 L Pulse Oximetry 100 98 99 Oxygen Delivery Method Nasal Cannula Nasal Cannula Nasal Cannula Oxygen Flow Rate 3 3 12/21/23 07:23 12/21/23 08:23 Temperature 98.3 F 97 F Pulse Rate 78 77 Respiratory Rate 17 16 Blood Pressure 115/58 L 104/68 Pulse Oximetry 98 100 Oxygen Delivery Method Nasal Cannula Room Air Oxygen Flow Rate 3 BMI result Body Mass Index 49.4 Const Other: obese female chronically ill, crying Orientation/consciousness: oriented to person and patient oriented x3 Limitations: no limitations HENMT Head: Yes normal to inspection Ears: external ears normal General nose exam: Normal external nose present Mouth: Normal oral and palatal mucosa present and oropharynx normal Throat: Yes posterior oropharynx normal Eyes General: appearance normal, both eyes and all related structures Neck Neck: Yes normal visual inspection Chest Chest palpation & inspection: normal inspection of the chest Resp Auscultation: clear to auscultation bilaterally Cardio Jugular venous distension: no JVD Rate: regular rate Rhythm: regular rhythm Heart sounds: S1 normal heart sound present and S2 normal heart sound present GI Inspection: Yes normal to inspection Palpation (GI): Soft to palpation, nontender and No hepatosplenomegaly present Auscultation: normal bowel sounds General: Yes no CVA tenderness Back/Spine/Pelvis Back: no CVA tenderness Skin General skin exam: no rashes or lesions noted Neuro General: oriented to person and patient oriented x3 Cranial nerves: Yes CN's II-XII intact bilaterally Motor exam (neuro): 5/5 motor strength present throughout Sensory Exam: No Sensory deficit (Neuro) Extrem Other: chronic 3+ edema bilaterally with chronic skin changes Psych Appearance: grossly normal Course Reevaluation(s) Reevaluation #1: Patient with chronic renal insufficiency will start some lasix for her edema which seems to be hurting her will dc home Time: 08:36 Medical Decision Making Differential Diagnosis Differential Diagnoses: The differential diagnosis associated with the presentation includes (cardiac ischemia, chf, renal failure, peripheral edema) Admission/Observation Consideration of admission/observation: Escalation of care including admission/observation considered (upon arrival patient considered for admission) Lab Data 12/20/23 23:48 12/20/23 23:48 Labs: Lab Results 12/20/23 12/21/23 Range/Units 23:48 02:38 WBC 8.4 (4.8-10.8) X10*3/uL RBC 3.70 L (4.20-5.50) X10*6/uL Hgb 9.4 L (12.0-16.0) g/dl Hct 31.8 L (37.0-47.0) % MCV 85.9 (80.0-98.0) fL MCH 25.4 L (27.0-33.0) pg MCHC 29.6 L (31.0-35.0) g/dl RDW 17.3 H (11.0-16.0) % Plt Count 183 (160-400) X10*3/uL MPV 9.1 L (9.4-12.3) fL Immature Gran % (Auto) 0.5 H (0.0-0.4) % Neut % (Auto) 75.5 H (45-73) % Lymph % (Auto) 13.2 L (20-40) % Banner % (Auto) 8.3 (2-11) % Eos % (Auto) 2.1 (0-4) % Baso % (Auto) 0.4 (0-2) % Lymph # (Auto) 1.1 L (1.2-4.9) X10*3/uL Banner # (Auto) 0.7 (0.1-1.2) X10*3/uL Eos # (Auto) 0.2 (0.0-0.4) X10*3/uL Baso # (Auto) 0.0 (0.0-0.2) X10*3/uL Abs Immat Gran (auto) 0.04 H (0.00-0.03) X10*3/uL Absolute Neuts (auto) 6.4 (2.0-8.3) x10*3/uL Absolute Nucleated RBC 0.000 (0.0-0.012) X10*3/uL Nucleated RBC % (auto) 0.0 (0.0-0.2) /100WBC Sodium 146 H (135-145) mmol/L Potassium 4.4 (3.3-5.1) mmol/L Chloride 104 (96-108) mmol/L Carbon Dioxide 29 (22-29) mmol/L Anion Gap 17 (12-20) BUN 43 H (9-16) mg/dL Creatinine 1.95 H (0.5-1.4) mg/dL Estim Creat Clear Calc 37.3 Estimated GFR 26 Random Glucose 96 (60-115) mg/dL Calcium 8.7 D (8.4-10.2) mg/dL Troponin I High Sens 11.0 10.0 (<3.5-17.0) ng/L Independent Interpretation I performed an independent interpretation of an: EKG (sinus 90, pvcs, no acute ischemia) Independent Historian Clinical information obtained from an independent historian. History obtained from or confirmed by: EMS Prescription Management I considered prescription management with: Pain Medication (will not place patient on narcotics for her diffuse myalgias) Chronic Conditions Patient?s care impacted by: Diabetes, Hypertension and Other (renal failure) Social Determinants Patient?s care significantly limited by Social Determinants of Health including: Low income Discharge Plan Discharge Clinical Impression: Myalgia, Renal failure, Edema, peripheral Patient Disposition: Home, Self-Care Instructions: Leg Edema (ED), Musculoskeletal Pain (ED), Impaired Kidney Function (ED) Prescriptions: New furosemide [Lasix] 40 mg tablet 40 mg PO DAILY Qty: 20 0RF No Action (DME) blood-glucose meter [FreeStyle Lite Meter] Kit See Rx Instructions .Route Qty: 1 0RF Rx Instructions: As directed checks POC 4 X/day Trulicity 0.75 mg/0.5 mL pen injector 0.75 mg subcut QWEEK Qty: 2 4RF insulin lispro [Humalog U-100 Insulin] 100 unit/mL Solution See Protocol subcut QIDACHS Qty: 1 0RF Protocol: Insulin Correction Scale Less than or equal to 110 ---- Give (units): 0 111 to 150 Give (units): 0 151 to 200 Give (units): 2 201 to 250 Give (units): 4 251 to 300 Give (units): 6 301 to 350 Give (units): 8 Greater than 350 Give (units): 10 Call MD if Blood Glucose > : 350 Rx Instructions: sliding scale aspirin 81 mg tablet,delayed release (DR/EC) 81 mg PO DAILY simvastatin 20 mg tablet 20 mg PO BEDTIME fluticasone propionate [Flovent HFA] 110 mcg/actuation HFA aerosol inhaler 2 puff inhalation BID gabapentin 400 mg Capsule 400 mg PO BID@0900,1500 nystatin 100,000 unit/gram Powder 1 appl TOPICAL BID PRN (Reason: Rash) Protocol: Apply to: Apply to: under breasts, around groin Rx Instructions: apply to groin area, and under breasts (DME) insulin syringe-needle U-100 [BD Insulin Syringe Ultra-Fine] 1 mL 31 gauge x 5/16 syringe MISCELLANEOUS QID isosorbide mononitrate 30 mg tablet extended release 24 hr 1 tab PO DAILY clonidine HCl 0.1 mg Tablet 0.1 mg PO TID PRN (Reason: hyperarousal, anxiety, panic) Qty: 90 0RF Protocol: Hold for SBP< HOLD for SBP < : 90 hydralazine 25 mg Tablet 25 mg PO BID Qty: 60 0RF Protocol: Hold for SBP< HOLD for SBP < : 90 metoprolol succinate 50 mg tablet extended release 24 hr 50 mg PO DAILY prazosin 1 mg capsule 1 mg PO BEDTIME meclizine 25 mg tablet 25 mg PO TID PRN (Reason: Vertigo) risperidone 0.5 mg tablet 0.5 mg PO BID duloxetine 30 mg capsule,delayed release(DR/EC) 30 mg PO QAM insulin glargine [Lantus U-100 Insulin] 100 unit/mL solution 18 unit subcut BID Qty: 10 0RF bumetanide 1 mg Tablet 0.5 mg PO BEDTIME Qty: 30 0RF Protocol: Hold for SBP< HOLD for SBP < : 90 clonazepam [Klonopin] 0.5 mg tablet 0.5 mg PO BID Qty: 60 0RF doxycycline monohydrate 100 mg capsule 100 mg PO BID Qty: 20 0RF benzonatate 200 mg capsule 200 mg PO TID PRN (Reason: cough) Qty: 20 0RF nystatin 100,000 unit/gram powder 1 appl topical TID 7 Days Qty: 30 0RF trazodone 50 mg tablet 50 mg PO BEDTIME (DME) FreeStyle Lite Strips Strip See Rx Instructions .ROUTE BID Qty: 10 Rx Instructions: As directed (DME) lancets [FreeStyle Lancets] 28 gauge misc See Rx Instructions .ROUTE QID Qty: 100 Rx Instructions: As directed (DME) insulin syringe-needle U-100 [BD Insulin Syringe Ultra-Fine] 1 mL 31 gauge x 5/16 syringe See Rx Instructions .ROUTE QID Qty: 10 Rx Instructions: As directed Referrals: Physician,Unknown J [Primary Care Provider] - 5 days Print Language: Irish
[2023-12-21 08:23] VITALS: BP 104/68; PULSE 77; RESP 16; TEMP 36.1; O2SAT 100
[2023-12-21] MEDS: Furosemide 40 MG TABLET PO (08:45)
== END 2023-12-21 10:52 | disposition home or self-care (01) ==
PROVIDERS: Emergency Provider Emergency Medicine; PCP Internal Medicine
DX: M79.10 Myalgia, unspecified site (principal); N17.9 Acute kidney failure, unspecified; R60.0 Localized edema; I11.0 Hypertensive heart disease with heart failure; I50.9 Heart failure, unspecified; E11.9 Type 2 diabetes mellitus without complications; E78.00 Pure hypercholesterolemia, unspecified; Z87.891 Personal history of nicotine dependence; Z79.82 Long term (current) use of aspirin; Z79.02 Long term (current) use of antithrombotics/antiplatelets; Z79.4 Long term (current) use of insulin; Z79.899 Other long term (current) drug therapy; Z79.85 Long-term (current) use of injectable non-insulin antidiabetic drugs
CPT/HCPCS: 36415; 80048; 84484; 85025; 93005; 99283; 99284

== ENCOUNTER → 2023-12-20 23:22 | Outpatient (BNV) | payer OTHER, SELFPAY | PROVIDERS: Emergency Provider Emergency Medicine; PCP Internal Medicine; Visit Provider Internal Medicine Cardiovascular Disease | DX: R94.31 Abnormal electrocardiogram [ECG] [EKG] (principal) | CPT/HCPCS: 93010 ==

== ENCOUNTER 2024-04-27 12:47 | Outpatient (AMB) | payer OTHER, SELFPAY ==
[2024-04-27 12:51] VITALS: BMI 49.4
--- NOTE | 2024-04-27 12:51 | MHC.OFFVIS ---
Vital Signs 04/27/24 12:51 Height 5 ft 2 in Weight 270 lb BMI 49.4 Intake Visit Reasons: OV- Discuss LT cubital ankita rel vs trans/CTR Intake Note: Lupis is a 63 year old right hand dominant female who presents today to re-discuss left cubital tunnel release vs trans and CTR. Patient no showed multiple preoperative clearances causing her surgery to be cancelled earlier this year. Today, patient reports her right hand has worsened and wishes to be scheduled for right CTR and cubital tunnel release. Allergies ibuprofen Allergy (Intermediate, Verified 04/27/24 13:03) vomiting, itching acetaminophen [Tylenol] Allergy (Unknown, Verified 04/27/24 13:03) Unknown codeine Adverse Reaction (Severe, Verified 04/27/24 13:03) Anaphylaxis morphine Adverse Reaction (Intermediate, Verified 04/27/24 13:03) vomiting vancomycin Adverse Reaction (Intermediate, Verified 04/27/24 13:03) Itching HPI HPI OV- Discuss LT cubital ankita rel vs trans/CTR: Details: Lupis is a 63 year old right hand dominant woman who returns to discuss her bilateral carpal tunnel & cubital tunnel syndrome. She was scheduled for a left carpal & cubital tunnel release on 11/16/23 but this did not happen. She has no-showed and rescheduled multiple pre-op clearance appointments and was unable to proceed with surgery She complains of dense numbness in all her fingers bilaterally. She says her right side is currently worse. She has difficulty using a pen to sign her name or to write. She complains of pain in multiple other areas such as with her knees & ankles, and difficulty with ambulation. She has several comorbidities including, Diabetes, CHF, COPD, Asthma, CKD Stage 4, PVD, MDD, Adjustment disorder, and a panic disorder. She will need pre-op clearance from her PCP, Construction Plant Operator, and Auto Bumper Straightener prior to surgery. [facility] Medical History Mood disorder Elevated d-dimer FELICIA (acute kidney injury) Abdominal pain Constipation Chronic respiratory failure with hypoxia Stercoral colitis Decubitus ulcer Hypoxia CHF exacerbation MDD (major depressive disorder), recurrent episode, moderate Adjustment disorder with mixed anxiety and depressed mood Panic disorder Cellulitis of right lower extremity Stasis dermatitis of both legs DANIEL (obstructive sleep apnea) Asthma Hyperglycemia due to diabetes mellitus COPD (chronic obstructive pulmonary disease) Congestive heart failure Obesity hypoventilation syndrome CKD (chronic kidney disease) stage 3, GFR 30-59 ml/min NICM (nonischemic cardiomyopathy) Acute on chronic combined systolic and diastolic CHF (congestive heart failure) Morbid obesity Diabetic neuropathy, painful Chronic pain High cholesterol Depression Hypertension Diabetes Surgical History History of surgery Hx of cholecystectomy Family History Mother HTN (hypertension) Diabetes CAD (coronary artery disease) Father HTN (hypertension) Diabetes CAD (coronary artery disease) Maternal Grandmother CAD (coronary artery disease) Social History (Updated 04/25/24 @ 11:35 by BUBBA Melgar) Household Members: None Household Members Other:: GRANDSON Housing: [facility] Housing Other:: with remelter Do you presently have visiting nurse or other home services: Yes ([facility] twice daily) Unable to assess alcohol history related to: Unable to respond and Refusing to respond Alcohol intake: never Comment: 1:1 Patient Tobacco Use Status: Former Tobacco user Tobacco use type: Cigarette Years Smoked: 38 e-Cigarette/Vaping Use: Never Used Second Hand Smoke Exposure: No Substance Use Type: Former Substance User Advance Directives Date on File: 04/30/23 service: No Current occupational status: disabled Current occupation: rt handed Physical Exam Vital Signs: BMI result Body Mass Index 49.4 Extrem Other: Evaluation of Bilateral Upper Extremity: The patient is alert, oriented. She was distressed and somewhat tearful today in clinic She ambulates with a walker which she has with her today. Neuro: Decreased subjective sensation in all of the digits of both hands, right worse than left. Today she was able to fully adduct and abduct her fingers. Week APB muscle belly firing bilaterally. Vascular: Cap refill brisk ROM: She was able to make a weak fist and extend all her digits Nerve Conduction Study: Severe end stage carpal tunnel syndrome on the right Moderately severe carpal tunnel syndrome on the left Diffuse sensory-motor peripheral neuropathy EMG of the right C5-T1 innervated muscles consistent with denervation of the APB muscles consistent with severe median neuropathy. Denervation in the ulnar innervated muscles consistent with severe ulnar neuropathy on the right Dr. Sanchez 02/18/23 Assessment & Plan Assessment & Plan (1) Carpal tunnel syndrome of left wrist: Code(s): G56.02 - Carpal tunnel syndrome, left upper limb Category: Medical (2) Cubital tunnel syndrome on left: Code(s): G56.22 - Lesion of ulnar nerve, left upper limb Category: Medical (3) Carpal tunnel syndrome of right wrist: Code(s): G56.01 - Carpal tunnel syndrome, right upper limb Category: Medical (4) Cubital tunnel syndrome on right: Code(s): G56.21 - Lesion of ulnar nerve, right upper limb Category: Medical (5) Diabetes: Code(s): E11.9 - Type 2 diabetes mellitus without complications Category: Medical (6) Asthma: Comment: She does have history of bronchial asthma/reactive airways for many years. TX: Will continue using Flovent -110 2 puffs b.i.d. and ProAir 2 puffs Q 4-6 hours p.r.n. Also has nebulizer at home and may use ipratropium-albuterol solution 3 ml Q 4-6 hours p.r.n. when at home. Code(s): J45.909 - Unspecified asthma, uncomplicated Category: Medical (7) Adjustment disorder with mixed anxiety and depressed mood: Code(s): F43.23 - Adjustment disorder with mixed anxiety and depressed mood Category: Medical (8) CHF (congestive heart failure): Code(s): I50.9 - Heart failure, unspecified Category: Medical (9) CKD (chronic kidney disease) stage 3, GFR 30-59 ml/min: Code(s): N18.30 - Chronic kidney disease, stage 3 unspecified Category: Medical (10) COPD (chronic obstructive pulmonary disease): Code(s): J44.9 - Chronic obstructive pulmonary disease, unspecified Category: Medical (11) MDD (major depressive disorder), recurrent episode, moderate: Code(s): F33.1 - Major depressive disorder, recurrent, moderate Category: Medical Plan Assessment & Plan: 1. Right Carpal tunnel syndrome, severe end-stage With dense numbness 2. Right cubital tunnel syndrome, severe With dense numbness I educated her about these conditions I discussed operative and non-operative treatment options The patient would like to proceed with surgery for the right hand which bothers her the most. I explained the risks of her sensation not returning, but that surgery is important to maintain muscle function and preserve any sensation possible. She expressed understanding The risks and benefits of operative treatment were discussed with the patient and the patient wishes to proceed with surgery. These risks include, but are not limited to risk of damage to blood vessels, nerves, tendons, infection, recurrence, incomplete relief of preoperative symptoms, persistent pain, possible need for further surgery and the risks associated with regional blocks and anesthesia. The plan is to take the patient to the operating room in the next few weeks for the following procedures: 1. Right carpal tunnel release, under general 2. Right cubital tunnel release versus transposition, under general All of the preoperative paperwork including the consent was filled out today. All the patient's questions were answered. The patient understands that they will be contacted by our microarray analyst soon to schedule this procedure She has several comorbidities including, Diabetes, CHF, COPD, Asthma, CKD Stage 4, PVD, MDD, Adjustment disorder, and a panic disorder. She will need pre-op clearance from her PCP, Construction Plant Operator, and Auto Bumper Straightener prior to surgery. They will need an updated HgA1c that is <8.1% in order to proceed with surgery, and they expressed understanding 3. Left Carpal tunnel syndrome, moderate-severe With dense numbness 4. Left Cubital tunnel syndrome, based on history and PE With dense numbness Negative on NCS She will follow up to discuss treatment when she has recovered from her right hand surgery We will need to re-assess her left small finger sensation prior to discussing surgery Scribed for Amber Scott MD by Stanley Chisholm, medical secretary, on 04/27/24 at 1:15 PM, EST. Coding Level of Care Code Est Pt Level 4 (04233) Diagnoses Carpal tunnel syndrome of left wrist G56.02 Cubital tunnel syndrome on left G56.22 Carpal tunnel syndrome of right wrist G56.01 Cubital tunnel syndrome on right G56.21 Diabetes E11.9 Asthma J45.909 Adjustment disorder with mixed anxiety and depressed mood F43.23 CHF (congestive heart failure) I50.9 CKD (chronic kidney disease) stage 3, GFR 30-59 ml/min N18.30 COPD (chronic obstructive pulmonary disease) J44.9 MDD (major depressive disorder), recurrent episode, moderate F33.1
== END 2024-04-27 13:24 | disposition home or self-care (01) ==
PROVIDERS: PCP Internal Medicine; Visit Provider Orthopaedic Surgery
DX: G56.03 Carpal tunnel syndrome, bilateral upper limbs (principal); G56.23 Lesion of ulnar nerve, bilateral upper limbs; E11.9 Type 2 diabetes mellitus without complications; J45.909 Unspecified asthma, uncomplicated; F43.23 Adjustment disorder with mixed anxiety and depressed mood; I50.9 Heart failure, unspecified; N18.30 Chronic kidney disease, stage 3 unspecified; J44.9 Chronic obstructive pulmonary disease, unspecified; F33.1 Major depressive disorder, recurrent, moderate
CPT/HCPCS: 99214

== ENCOUNTER → 2024-04-27 12:47 | Outpatient (BNVA) | payer OTHER, SELFPAY | PROVIDERS: PCP Internal Medicine; Visit Provider Orthopaedic Surgery | DX: E11.65 Type 2 diabetes mellitus with hyperglycemia (principal); E11.40 Type 2 diabetes mellitus with diabetic neuropathy, unspecified; E11.21 Type 2 diabetes mellitus with diabetic nephropathy; N17.9 Acute kidney failure, unspecified; N18.30 Chronic kidney disease, stage 3 unspecified; E78.5 Hyperlipidemia, unspecified; Z79.4 Long term (current) use of insulin; G56.23 Lesion of ulnar nerve, bilateral upper limbs; G56.03 Carpal tunnel syndrome, bilateral upper limbs; J45.909 Unspecified asthma, uncomplicated; J44.9 Chronic obstructive pulmonary disease, unspecified; F43.23 Adjustment disorder with mixed anxiety and depressed mood; F33.1 Major depressive disorder, recurrent, moderate; I50.9 Heart failure, unspecified | CPT/HCPCS: 82947; 83036; 99212 ==

== ENCOUNTER 2024-04-27 13:25 | Outpatient (AMB) | payer OTHER, SELFPAY ==
[2024-04-27 13:33] VITALS: BP 118/78; PULSE 75; BMI 49.6
--- NOTE | 2024-04-27 13:33 | MHC.OFFVIS ---
Vital Signs 04/27/24 13:33 Height 5 ft 2 in Weight 271 lb 2.697 oz BMI 49.6 BP 118/78 Blood Pressure Location Rt brachial Position Sitting Pulse 75 Pulse Source Pulse Oximeter Intake Visit Reasons: T2DM/CONFIRMED Intake Note: Patient presents today to re-establish treatment for Type Diabetes Mellitus: Last Diabetic eye exam was on: DUE Last Podiatry exam was on: Does not see a Ticker Installer Most recent HbA1c: 7.8%, 04/27/2024 Random Glucose- 165 mg/dL, Today Leather Repairer Required: No Accompanied by: JANITOR HEAD Allergies ibuprofen Allergy (Intermediate, Verified 04/27/24 13:42) vomiting, itching acetaminophen [Tylenol] Allergy (Unknown, Verified 04/27/24 13:42) Unknown codeine Adverse Reaction (Severe, Verified 04/27/24 13:42) Anaphylaxis morphine Adverse Reaction (Intermediate, Verified 04/27/24 13:42) vomiting vancomycin Adverse Reaction (Intermediate, Verified 04/27/24 13:42) Itching HPI Comments Details: 63 year old female presenting for T2DM Medical history: dCHF, chronic pain, obesity, depression, anxiety Initially diagnosed with T2DM in >10 yrs . Last seen by Dr Wilson in October 2023 Current regimen Lantus 60u Humalog 4 TID or sliding scale-unclear per patient. Administered by nursing, possibly not with all meals. Daughter says generally given after the meal is complete Previous medications: metformin. Prescribed ozempic but it never was started, unclear issue. POC A1C today is 7.8%. Denies recent hypoglycemia. Previously on CGM then went to rehab and unclear but no longer has one. Nursing checking blood glucose. Did not bring meter today. Reports chronic pain, does endorse painful neuropathy of b/l LE and chronic LE swelling Family history of T2DM in grandparents and parents have Type 2 DM . Sees ophtho + neuropathy, requests podiatry Has nephropathy,Not on RICHY/ARB. Has HLD, on statin. Denies CAD. ROS see HPI PHYSICAL EXAM: GENERAL: Alert and oriented x 3. NAD, obese EYES: EOMI. Anicteric. HENT: Moist mucous membranes. No scleral icterus. No cervical lymphadenopathy. LUNGS: Clear to auscultation bilaterally. CARDIOVASCULAR: Regular rate and rhythm. ABDOMEN: Soft, non-tender +bs EXTREMITIES: Non pitting b/l LE edema. Non-tender. SKIN: No visible rashes or lesions. NEUROLOGIC: No focal neurological deficits. CN II-XII grossly intact PSYCHIATRIC: Cooperative. Appropriate mood and affect [facility] Medical History Mood disorder Elevated d-dimer FELICAI (acute kidney injury) Abdominal pain Constipation Chronic respiratory failure with hypoxia Stercoral colitis Decubitus ulcer Hypoxia CHF exacerbation MDD (major depressive disorder), recurrent episode, moderate Adjustment disorder with mixed anxiety and depressed mood Panic disorder Cellulitis of right lower extremity Stasis dermatitis of both legs DANIEL (obstructive sleep apnea) Asthma Hyperglycemia due to diabetes mellitus COPD (chronic obstructive pulmonary disease) Congestive heart failure Obesity hypoventilation syndrome CKD (chronic kidney disease) stage 3, GFR 30-59 ml/min NICM (nonischemic cardiomyopathy) Acute on chronic combined systolic and diastolic CHF (congestive heart failure) Morbid obesity Diabetic neuropathy, painful Chronic pain High cholesterol Depression Hypertension Diabetes Surgical History History of surgery Hx of cholecystectomy Family History Mother HTN (hypertension) Diabetes CAD (coronary artery disease) Father HTN (hypertension) Diabetes CAD (coronary artery disease) Maternal Grandmother CAD (coronary artery disease) Social History (Updated 04/25/24 @ 11:35 by BUBBA Melgar) Household Members: None Household Members Other:: GRANDSON [facility] 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 Do you presently have visiting nurse or other [facility] Unable to assess alcohol history related to: Unable to respond and Refusing to respond Alcohol intake: never Comment: 1:1 Patient Tobacco Use Status: Former Tobacco user Tobacco use type: Cigarette Years Smoked: 38 e-Cigarette/Vaping Use: Never Used Second Hand Smoke Exposure: No Substance Use Type: Former Substance User Advance Directives Date on File: 04/30/23 service: No Current occupational status: disabled Current occupation: rt handed Physical Exam Vital Signs: Last Vital Signs Pulse 75 04/27/24 13:33 BP 118/78 04/27/24 13:33 BMI result Body Mass Index 49.6 Results AMB Hemoglobin A1c AMB Hemoglobin A1c 7.8 % Last Edit by BUBBA Alford on 04/27/24 13:57 Results Reviewed Results Reviewed: Laboratory Last Values Glucose (Clinic) 168 mg/dL (60-115) H 04/27/24 13:39 Hgb A1c (Clinic) 7.8 % (4.0-6.0) H 04/27/24 13:56 Assessment & Plan Assessment & Plan (1) Diabetes mellitus with hyperglycemia: Code(s): E11.65 - Type 2 diabetes mellitus with hyperglycemia Category: Medical Qualifiers: Diabetes mellitus type: type 2 Diabetes mellitus terminal operations supervisor insulin use: with terminal operations supervisor use Qualified Code(s): E11.65 - Type 2 diabetes mellitus with hyperglycemia; Z79.4 - intermediate accountant (current) use of insulin Plan: Suboptimal control neuropathy, chf, pvd, Continue Lantus 60units Humalog/lispro 4u TID Start ozempic 0.25mg weekly.Given baseline constipation start linzess Needs CGM-ordered Given LE edema stop amlodipine. imdur increased to 60 from 30 (2) Long-term insulin use: Code(s): Z79.4 - intermediate accountant (current) use of insulin Category: Medical Plan: see above Orders: Orders AMB Hemoglobin A1c 04/27/24 E11.40 - Type 2 diabetes mellitus with diabetic neuropathy, unspecified Referrals Podiatry Referral E11.40 - Type 2 diabetes mellitus with diabetic neuropathy, unspecified Medications: New FreeStyle Lucy 3 Sensor (blood-glucose sensor) As directed 3 ea 3RF NS E11.40 - Type 2 diabetes mellitus with diabetic neuropathy, unspecified, Z79.4 - intermediate accountant (current) use of insulin Ozempic (semaglutide) 0.25 mg (0.368 mL) subcut QWEEK 4 weeks 3 mL 0RF NS E11.40 - Type 2 diabetes mellitus with diabetic neuropathy, unspecified, Z79.4 - intermediate accountant (current) use of insulin sertraline 75 mg (3 x 25 mg) PO DAILY 270 tabs 3RF pantoprazole 20 mg PO BEDTIME 90 days 90 tabs 3RF isosorbide mononitrate ER 60 mg (2 x 30 mg) PO DAILY 180 tabs 3RF BD Insulin Syringe (half unit) (insulin syr/ndl U100 half dionna) As directed 400 ea 3RF NS Z79.4 - intermediate accountant (current) use of insulin FreeStyle Lucy 3 [place] (blood-glucose meter,continuous) As directed 1 ea 0RF NS E11.40 - Type 2 diabetes mellitus with diabetic neuropathy, unspecified, Z79.4 - half-way (current) use of insulin linaclotide (Linzess) 145 mcg PO DAILY 90 caps 3RF Changed From insulin lispro (Humalog U-100 Insulin) sliding scale See Protocol subcut QIDACHS 1 mL 0RF To insulin lispro (Humalog U-100 Insulin) subcutaneous 15 minutes prior to meal or at the latest at the onset of eating. 4 units See Protocol subcut TID 10 mL 3RF From trazodone 50 mg PO BEDTIME To trazodone 100 mg (2 x 50 mg) PO BEDTIME 90 tabs 3RF From insulin glargine (Lantus U-100 Insulin) 60 units subcut BID E11.40 - Type 2 diabetes mellitus with diabetic neuropathy, unspecified To insulin glargine (Lantus U-100 Insulin) 60 units (0.6 mL) subcut DAILY 45 mL 3RF E11.40 - Type 2 diabetes mellitus with diabetic neuropathy, unspecified From furosemide (Lasix) 40 mg PO DAILY 20 tabs 0RF To furosemide (Lasix) 40 mg PO BID 20 tabs 0RF Discontinued doxycycline monohydrate Discontinued Reason: Doctor's Order 100 mg PO BID 20 caps 0RF Coding Level of Care Code Est Pt Level 5 (13148) Diagnoses Type 2 diabetes mellitus with hyperglycemia, with long-term current use of insulin E11.65; Z79.4 Diabetes mellitus type: type 2 Diabetes mellitus terminal operations supervisor insulin use: with group home use Long-term insulin use Z79.4 Time Spent (min) 55
[2024-04-27 13:46] LABS: Glucose, Whole Blood 168 mg/dL (60-115)
== END 2024-04-27 14:36 | disposition home or self-care (01) ==
PROVIDERS: PCP Internal Medicine; Visit Provider Internal Medicine
DX: E11.65 Type 2 diabetes mellitus with hyperglycemia (principal); Z79.4 Long term (current) use of insulin

== ENCOUNTER 2024-05-10 11:48 | Outpatient (REF) | payer OTHER, SELFPAY ==
[2024-05-10 12:25] LABS: MANUAL DIFF FLAG NO
[2024-05-10 12:41] LABS: Basophils Percent Auto 0.5 % (0-2); Eosinophils Absolute Auto 0.1 X10*3/uL (0.0-0.4); Eosinophils Percent Auto 1.6 % (0-4); Hematocrit 33.6 % (37.0-47.0); Hemoglobin 10.2 g/dl (12.0-16.0); Imm Gran Abs Auto 0.06 X10*3/uL (0.00-0.03); Imm Gran Pct Auto 0.8 % (0.0-0.4); Lymphocytes Absolute Auto 1.2 X10*3/uL (1.2-4.9); Lymphocytes Percent Auto 16.4 % (20-40); Mean Corpuscular HGB Conc 30.4 g/dl (31.0-35.0); Mean Corpuscular Hemoglobin 27.9 pg (27.0-33.0); Mean Corpuscular Volume 91.8 fL (80.0-98.0); Monocytes Absolute Auto 0.8 X10*3/uL (0.1-1.2); Monocytes Percent Auto 11.1 % (2-11); Neutrophils Absolute Auto 5.1 x10*3/uL (2.0-8.3); Neutrophils Percent Auto 69.6 % (45-73); Platelet Count 150 X10*3/uL (160-400); Red Blood Count 3.66 X10*6/uL (4.20-5.50); White Blood Count 7.3 X10*3/uL (4.8-10.8)
[2024-05-10 12:49] LABS: Estimated Average Glucose 163 mg/dL; Hemoglobin A1C 145.9301 umol/L; Hemoglobin A1c % 7.3 % (<6.0); Total Hemoglobin (HGBA1C) 2596.4646 umol/L
[2024-05-10 13:17] LABS: Alanine Aminotransferase 6 U/L (0-31); Albumin Level 3.7 g/dL (3.5-5.0); Alkaline Phosphatase 65 U/L (39-117); Anion Gap 15 (12-20); Aspartate Amino Transferase 14 U/L (5-31); Bilirubin Total 0.3 mg/dL (0.0-1.0); Blood Urea Nitrogen 53 mg/dL (9-16); Calcium 8.5 mg/dL (8.4-10.2); Carbon Dioxide 29 mmol/L (22-29); Chloride 103 mmol/L (96-108); Cholesterol 102 mg/dL (<200); Estimated Glomerular Filt Rate 26; Glucose Fasting 158 mg/dL (60-99); HDL Cholesterol 34 mg/dL (>40); LDL Cholesterol Calculated 52 mg/dL (<100); Potassium 4.2 mmol/L (3.3-5.1); Sodium 143 mmol/L (135-145); Total Protein 6.6 g/dL (6.5-8.0); Triglycerides 84 mg/dL (<150)
[2024-05-10 13:34] LABS: Thyroid Stimulating Hormone 1.25 uIU/mL (0.32-4.0); Vitamin D 25-OH Total 12.9 ng/mL (>30)
== END 2024-05-10 11:49 | disposition home or self-care (01) ==
LOC: HO.LAB 11:48
PROVIDERS: PCP Internal Medicine; Visit Provider Internal Medicine
DX: J44.9 Chronic obstructive pulmonary disease, unspecified (principal); E11.22 Type 2 diabetes mellitus with diabetic chronic kidney disease; R60.0 Localized edema; N18.9 Chronic kidney disease, unspecified; E78.00 Pure hypercholesterolemia, unspecified
CPT/HCPCS: 36415; 80053; 80061; 82306; 83036; 84443; 85025

== ENCOUNTER 2024-06-01 12:54 | Outpatient (AMB) | payer OTHER, SELFPAY ==
--- NOTE | 2024-06-01 12:56 | A.OFFVIS_ITS ---
Vital Signs 06/01/24 13:00 Height 5 ft 2 in Weight 264 lb 8.875 oz BMI 48.4 BP 128/72 Blood Pressure Location Rt brachial Position Sitting Pulse 70 Pulse Source Pulse Oximeter Intake Visit Reasons: T2DM/CONFIRMED Intake Note: Patient presents today for a follow-up on Type 2 Diabetes Mellitus: Last Diabetic eye exam was on: DUE Last Podiatry exam was on: Does not see a Dinkey Engine Firer/Fireman Most recent HbA1c: 7.8%, 04/27/2024 Random Glucose- 155 mg/dL, Today Train Station Agent Required: No Accompanied by: HUMAN RESOURCES ASSISTANT MANAGER Allergies ibuprofen Allergy (Intermediate, Verified 06/01/24 12:56) vomiting, itching acetaminophen [Tylenol] Allergy (Unknown, Verified 06/01/24 12:56) Unknown codeine Adverse Reaction (Severe, Verified 06/01/24 12:56) Anaphylaxis morphine Adverse Reaction (Intermediate, Verified 06/01/24 12:56) vomiting vancomycin Adverse Reaction (Intermediate, Verified 06/01/24 12:56) Itching HPI Comments Details: 64 year old female presenting for T2DM Medical history: dCHF, chronic pain, obesity, depression, anxiety Initially diagnosed with T2DM in >10 yrs . Seen one month ago Current regimen Lantus 60u Humalog 4 TID. Administered by nursing, possibly not with all meals-they only come twice daily. Tried to start ozempic at last visit. It was not covered. [facility] sent and approved but not started. CGM was approved but has not been picked up yet. There was some confusion with the pharmacy Previous medications: metformin. Prescribed ozempic but it never was started, unclear issue. POC A1C last visit was 7.8%. Denies recent hypoglycemia. Previously on CGM then went to rehab and unclear but no longer has one. Nursing checking blood glucose. Did not bring meter today. Reports chronic pain, does endorse painful neuropathy of b/l LE and chronic LE swelling Family history of T2DM in grandparents and parents have Type 2 DM . Sees ophtho + neuropathy, requests podiatry Has nephropathy,Not on RICHY/ARB. Has HLD, on statin. Denies CAD. ROS see HPI PHYSICAL EXAM: GENERAL: Alert and oriented x 3. NAD, obese EYES: EOMI. Anicteric. HENT: Moist mucous membranes. No scleral icterus. No cervical lymphadenopathy. LUNGS: Clear to auscultation bilaterally. CARDIOVASCULAR: Regular rate and rhythm. ABDOMEN: Soft, non-tender +bs EXTREMITIES: No LE edema. Chronic venous stasis changes SKIN: No visible rashes or lesions. NEUROLOGIC: No focal neurological deficits. CN II-XII grossly intact PSYCHIATRIC: Cooperative. Appropriate mood and affect [facility] Medical History Mood disorder Elevated d-dimer FELICIA (acute kidney injury) Abdominal pain Constipation Chronic respiratory failure with hypoxia Stercoral colitis Decubitus ulcer Hypoxia CHF exacerbation MDD (major depressive disorder), recurrent episode, moderate Adjustment disorder with mixed anxiety and depressed mood Panic disorder Cellulitis of right lower extremity Stasis dermatitis of both legs DANIEL (obstructive sleep apnea) Asthma Hyperglycemia due to diabetes mellitus COPD (chronic obstructive pulmonary disease) Congestive heart failure Obesity hypoventilation syndrome CKD (chronic kidney disease) stage 3, GFR 30-59 ml/min NICM (nonischemic cardiomyopathy) Acute on chronic combined systolic and diastolic CHF (congestive heart failure) Morbid obesity Diabetic neuropathy, painful Chronic pain High cholesterol Depression Hypertension Diabetes Surgical History History of surgery Hx of cholecystectomy Family History Mother HTN (hypertension) Diabetes CAD (coronary artery disease) Father HTN (hypertension) Diabetes CAD (coronary artery disease) Maternal Grandmother CAD (coronary artery disease) Social History Household Members: None Household Members Other:: GRANDSON Housing: Condominium 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 Do you presently have visiting nurse or other home services: Yes ([place] [facility] twice daily) Unable to assess alcohol history related to: Unable to respond and Refusing to respond Alcohol intake: never Comment: 1:1 Patient Tobacco Use Status: Former Tobacco user Tobacco use type: Cigarette Years Smoked: 38 e-Cigarette/Vaping Use: Never Used Second Hand Smoke Exposure: No Substance Use Type: Former Substance User Advance Directives Date on File: 04/30/23 service: No Current occupational status: disabled Current occupation: rt handed Physical Exam Vital Signs: Last Vital Signs Pulse 70 06/01/24 13:00 BP 128/72 06/01/24 13:00 BMI result Body Mass Index 48.4 Results Reviewed Results Reviewed: Laboratory Last Values Glucose (Clinic) 155 mg/dL (60-115) H 06/01/24 13:03 Assessment & Plan Assessment & Plan (1) Diabetes mellitus with hyperglycemia: Code(s): E11.65 - Type 2 diabetes mellitus with hyperglycemia Category: Medical Qualifiers: Diabetes mellitus snf insulin use: with embroidery specialist use Diabetes mellitus type: type 2 Qualified Code(s): E11.65 - Type 2 diabetes mellitus with hyperglycemia; Z79.4 - half-way (current) use of insulin Plan: start CGM Start trulicity as previously planned Continue lantus, humalog Return in 4 weeks Orders: Orders PT Evaluation and Treatment Today R42 - Dizziness and giddiness Medications: New pen needle, diabetic (Comfort EZ Pen [place]) four times daily 200 ea 3RF E11.65 - Type 2 diabetes mellitus with hyperglycemia, Z79.4 - assistant teacher primary (current) use of insulin Alcohol Prep Pads (alcohol swabs) 1 pad topical QID 200 ea 3RF NS E11.65 - Type 2 diabetes mellitus with hyperglycemia, Z79.4 - half-way (current) use of insulin Changed From blood sugar diagnostic (FreeStyle Lite Strips) As directed 10 ea diabetes mellitus E11.65 - Type 2 diabetes mellitus with hyperglycemia, Z79.4 - half-way (current) use of insulin To FreeStyle Lite Strips (blood sugar diagnostic) four times daily 200 ea 3RF diabetes mellitus NS E11.65 - Type 2 diabetes mellitus with hyperglycemia, Z79.4 - half-way (current) use of insulin From FreeStyle Lucy 3 Sensor (blood-glucose sensor) As directed 3 ea 3RF NS E11.40 - Type 2 diabetes mellitus with diabetic neuropathy, unspecified, Z79.4 - assistant teacher primary (current) use of insulin To FreeStyle Lucy 3 Sensor (blood-glucose sensor) every 14 days 6 ea 3RF NS E11.40 - Type 2 diabetes mellitus with diabetic neuropathy, unspecified, Z79.4 - half-way (current) use of insulin From lancets (FreeStyle Lancets) As directed 100 ea diabetes mellitus E11.65 - Type 2 diabetes mellitus with hyperglycemia, Z79.4 - half-way (current) use of insulin To FreeStyle Lancets (lancets) four times daily 200 ea 3RF diabetes mellitus NS E11.65 - Type 2 diabetes mellitus with hyperglycemia, Z79.4 - half-way (current) use of insulin Refilled dulaglutide (Trulicity) 0.75 mg (0.5 mL) subcut QWEEK 6 mL 3RF E11.65 - Type 2 diabetes mellitus with hyperglycemia, Z79.4 - assistant teacher primary (current) use of insulin Coding Level of Care Code Est Pt Level 4 (68078) Diagnoses Type 2 diabetes mellitus with hyperglycemia, with long-term current use of insulin E11.65; Z79.4 Diabetes mellitus embroidery specialist insulin use: with embroidery specialist use Diabetes mellitus type: type 2
[2024-06-01 13:00] VITALS: BP 128/72; PULSE 70; BMI 48.4
[2024-06-01 13:08] LABS: Glucose, Whole Blood 155 mg/dL (60-115)
== END 2024-06-01 13:46 | disposition home or self-care (01) ==
PROVIDERS: PCP Internal Medicine; Visit Provider Internal Medicine
DX: E11.65 Type 2 diabetes mellitus with hyperglycemia (principal); Z79.4 Long term (current) use of insulin

== ENCOUNTER → 2024-06-01 12:54 | Outpatient (BNVA) | payer OTHER, SELFPAY | PROVIDERS: PCP Internal Medicine; Visit Provider Internal Medicine | DX: E11.65 Type 2 diabetes mellitus with hyperglycemia (principal); E66.9 Obesity, unspecified; R42 Dizziness and giddiness; Z79.4 Long term (current) use of insulin; Z68.42 Body mass index [BMI] 45.0-49.9, adult | CPT/HCPCS: 82947; 99212 ==

== ENCOUNTER → 2024-07-05 10:57 | Outpatient (REF) | payer OTHER, SELFPAY ==
--- NOTE | 2024-07-05 11:14 | CA_ITS ---
Transthoracic Echocardiogram Patient (Last, First, Middle): Lupis Mueller, Gender: Female Date of : 1960 Age: 64 Procedure Date: 07/05/2024 Procedure Type: Transthoracic Echocardiogram Location: OP Height: 157. cm Weight: 122.47 kg BSA: 2.17 m2 Heart Rate: bpm BP: 130 / 80 mmHg Technical Proposal Writer: MIKAYLA Referring MD: Orlando Hebert MD Symptoms: I50.32 - Chronic diastolic (congestive) heart failure Study Quality: Technically Difficult/BSA/Uncooperative ECG Rhythm: Sinus Conclusions: - Normal left ventricular cavity size. There is mildly increased left ventricular wall thickness. The left ventricular systolic function is mild to moderately decreased. The visually estimated ejection fraction is between 35-40%. - Normal right ventricular cavity size and systolic function. Findings Procedure Information The patient declines contrast. Left Ventricle Normal left ventricular cavity size. There is mildly increased left ventricular wall thickness. The left ventricular systolic function is mild to moderately decreased. The visually estimated ejection fraction is between 35-40%. Regional wall motion abnormalities can not be excluded due to suboptimal endocardial definition. Abnormal diastolic function is noted. Spectral Doppler is indicative of an impaired relaxation filling pattern. Elevated filling pressures. Right Ventricle Normal right ventricular cavity size and systolic function. Atria The left atrium is normal in size. The right atrium is normal in size. Aortic Valve There is no aortic valve stenosis. There is no aortic valve regurgitation. Mitral Valve Likely normal mitral valve structure and function. There is no mitral valve regurgitation. There is no mitral valve stenosis. Pulmonic Valve The pulmonic valve was not well visualized. Tricuspid Valve Likely normal tricuspid valve structure and function. There is no tricuspid valve regurgitation. Tricuspid regurgitation envelope is inadequate for calculation of right ventricular systolic pressure. Normal right atrial pressure. Great Vessels All visible segments of the aorta are normal in size. Venous The inferior vena cava is normal in size and collapses greater than 50% with inspiration. Pericardium/Pleural There is no evidence of pericardial effusion. Prior Study Comparison Changes noted compared to prior study dated: 11/23/2020. Poor LV assessment EF 35 to 40%. Measurements 2D Linear Measurements IVSd: 1.32 0.6-0.9/0.6-1.0 cm LVIDd: 4.30 3.9-5.3/4.2-5.9 cm LVIDd Index: 1.98 2.4-3.2/2.2-3.1 cm/m2 LVIDs: 3.29 2.0-3.6 cm LVPWd: 1.28 0.7-1.1 cm LV Mass: 258.96 67-162/88-224 g LV Mass Index: 119.34 43-95/49-115 g/m2 LVOT Diam: 2.20 3.0+(-)1.3 cm Mitral Valve MV Pk E: 0.67 MV PK A: 1.05 MV Decel Time: 144.00 E/A: 0.60 E'Lateral: 4.68 E'Medial: 4.03 E/E' Med: 16.70 E/E' Lat: 14.40 PHT: 42.00 MVA PHT: 5.24 Decel [place]: 4.66 Aortic Valve AoV Pk [place]: 1.40 AoV Mn [place]: 1.08 AoV VTI: 0.26 AoV Pk Grad: 8.00 Aov Mn Grad: 5.00 STEVE Cont.VTI: 3.06 LVOT LVOT Pk [place]: 1.15 LVOT Mn [place]: 0.82 LVOT VTI: 0.21 LVOT Pk Grad: 5.00 LVOT Mn Grad: 3.00 LVOT Diam: 2.20 LVOT Area: 3.80 Diastolic Function MV Pk E: 0.67 MV Pk A: 1.05 E/A: 0.60 E'Medial: 4.03 E/E' Med: 16.70 E' Laterial: 4.68 E/E' Lat: 14.40 Right Ventricle TAPSE (mm): 20.80 TVS' [place]: 11.40 Tricuspid Valve RA Press: 3.00 Great Vessels Aorta Sinus of Valsalva: 3.40 2.0-3.5 cm Ao Asc: 3.20 2.1-3.4 cm Updated in Other Vendor System with Status of Final Orlando Hebert MD electronically signed on 07/06/2024 10:03:33 PM with status of Final
--- OUTSIDE RECORDS SUMMARY | 2024-07-05 11:27 | XMS_ITS | Data Portability ---
Author Organization [facility], Main Office Address [address], [address] [place] [address] Care Team Providers Care Quality Coordinator Name Role Phone SISI WATSON Primary Care Provider [facility] OTHER Assessment Encounter Date Assessment Date Assessment LastModified by Organization Details LastModified Time 11/17/2022 11/17/2022 11/13/22 wbc 11.9, hgb 9.9, plt 226, na 140, k 4.9, bun 103, creat 3.30, LFTs normal [email or web address] Not available 11/17/2022 13:30:40 11/24/2022 11/24/2022 11/13/22 wbc 11.9, hgb 9.9, plt 226, na 140, k 4.9, bun 103, creat 3.30, LFTs normal 09/27/22 wbc 12.3, hgb 10.3, na 130, bun 107, creat2.66 10/23/22 wbc 8.3, hgb 9.3, plt 178, na 139, k 4.6, bun 102, creat 2.50 [email or web address] Not available 11/24/2022 18:33:52 Plan of Treatment Reminders Order Date Submit Date Provider Last Modified By Organization Details Last Modified Time Details Appointments None record ed. Lab None record ed. Referral None record ed. Procedures None record ed. Surgeries None record ed. Imaging None record ed. Medication Orders None record ed. Patient TargetsNo targets recorded. Patient InstructionsNo instructions recorded. Reason for Referral None Reported. Problems Name Problem SNOMED Code Status Onset Date Resolution Date Notes Provider Name and Address Organization Details Recorded Time Chronic kidney disease stage 3A 409325601 Active 2022 Andi Mejia MD [address], [address], [place], [address], [facility] 3 09:24:07 Morbid obesity 062357302 Active 2022 Andi Mejia MD [address], [address], [place], [address], [facility] 3 09:29:42 Chronic combined systolic and diastolic heart failure 3022462776030 00 Active 2022 Andi Mejia MD [address], [address], [place], [address], [facility] 3 09:29:52 Nonischemic congestive cardiomyopa thy 028547881171 Active 2022 Andi Mejia MD [address], [address], [place], [address], [facility] 3 09:30:08 Anxiety 76866657 Active 2022 Andi Mejia MD [address], [address], [place], [address], [facility] 3 09:30:15 Depressive disorder 43066872 Active 2022 Andi Mejia MD [address], [address], [place], [address], [facility] 3 09:30:19 Asthma 022869701 Active 2022 Andi Mejia MD [address], [address], [place], [address], [facility] 3 09:30:26 Chronic pain 78016827 Active 2022 Andi Mejia MD [address], [address], [place], [address], [facility] 3 09:30:32 Chronic constipatio n 321227796 Active 2022 Andi Mejia MD [address], [address], [place], [address], [facility] 3 09:30:40 Chronic obstructive pulmonary disease 83827225 Active 2022 Andi Mejia MD [address], [address], [place], [address], [facility] 3 09:30:44 Diabetic peripheral neuropathy 812828886 Active 2022 Andi Mejia MD [address], [address], [place], [address], [facility] 3 09:30:56 Diabetes mellitus 89425835 Active 2022 Andi Mejia MD [address], [address], [place], [address], [facility] 3 09:31:01 Mixed hyperlipide matilda 073288698 Active 2022 Andi Mejia MD [address], [address], [place], [address], [facility] 3 09:31:09 Essential hypertensio n 50558585 Active 2022 Andi Mejia MD [address], [address], [place], [address], [facility] 3 09:31:15 Obstructive sleep apnea syndrome 84574491 Active 2022 Andi Mejia MD [address], [address], [place], [address], [facility] 3 09:31:20 Panic disorder 325970450 Active 2022 Andi Mejia MD [address], [address], [place], [address], [facility] 3 09:31:26 Coronary arterioscle rosis 97686138 Active 2022 Andi Mejia MD [address], [address], [place], [address], [facility] 3 09:31:30 Chronic kidney disease stage 4 357452554 Active 2022 Carolina Dennis MD [address], [place], [address], [facility] 3 18:36:56 Acute hyponatremi a 4806060 Active 2022 Carolina Dennis MD [address] [facility] [facility], [address], [place], [address], [employer] 3 18:43:11 Asthenia 45757014 Active 2022 Carolina Dennis MD [address], [address], [place], [address], [facility] 3 18:43:57 Problem Notes None recorded. Medical Equipment None Reported. Allergies Allergen ID Allergen Name Allergen Category Reaction Reaction Severity Criticality Documentation Date Start Date Code Code System Note Provider Name and Address Organization Details Recorded Time [id number] 4712687z8 2824e ibuprofen medicatio n Not available Not available Not available 10/08/2022 5640 RxNorm Not Available Not Available Not Available [id number] 721615770 7706574p6 2824e Tylenol medicatio n Not available Not available Not available 10/08/2022 06235 3 RxNorm Not Available Not Available Not Available [id number] 425440132 1991022h5 2824e morphine medicatio n Not available Not available Not available 10/08/2022 7052 RxNorm Not Available Not Available Not Available Medications Name Sig Start Date Stop Date Status Note LastModified by Organization Details LastModified Time oxycodone 5 mg tablet Take 1 tablet every 6 hours by oral route as needed. 2022 active Not Available Not Available Not Avai lable insulin glargine-yfg n (U-100) 100 unit/mL subcutaneous solution Inject 50 units twice a day by subcutaneou s route. 2022 active Not Available Not Available Not Avai lable Vitals Date Recorded Heart rate Respiratory rate Body temperature Systolic blood pressure Diastolic blood pressure Provider Name and Address Organization Details Last Updated DateTime 3 70 /min 18 /min 97.9 [degF] 124 mm[Hg] 70 mm[Hg] CHAKA Hawkins [address], [address], [place], [address], [facility] 3 07:57:14 Date Recorded Heart rate Respiratory rate Body temperature Oxygen saturation Oxygen saturation in Arterial blood by Pulse oximetry Provider Name and Address Organization Details Last Updated DateTime 3 74 /min 16 /min 97.8 [degF] 96 % 96 % PEDRO MONAE NP [address] [facility], [address], [place], [address], [facility] 3 15:33:19 Date Recorded Body weight Body mass index (BMI) Body height Heart rate Respiratory rate Body temperature Oxygen saturation Oxygen saturation in Arterial blood by Pulse oximetry Systolic blood pressure Diastolic blood pressure Provider Name and Address Organization Details Last Updated DateTime 3 463916. 54 g 44.6 kg/m2 157.48 cm 80 /min 18 /min 97.6 [degF] 96 % 96 % 148 mm[Hg] 82 mm[Hg] Carolina Dennis MD [address], [address], [place], [address], [facility] 3 18:00:03 Social History Question Answer Notes LastModified by Organizat ion Details LastModified Time Tobacco Smoking Status Former Smoker quit 1999 30+ pack year hx Andi Mejia MD [address], [facility] [address], [place], [address], [facility] 10/08/2022 11:59:39 Do You Have An Advance Directive? Yes Information not available 10/08/2022 What Is Your Level Of Alcohol Consumption? None Information not available 10/08/2022 What Is Your Code Status? Full Code Information not available 10/08/2022 Where Do You Live? Apartment Information not available 11/24/2022 Legal Guardian? No Informati on not available 11/24/2022 Do You Have A Medical Power Of [employer] Player? Yes Information not available 11/24/2022 What Was The Date Of Your Most Recent Tobacco Screening? 11/24/2022 Information not available 11/24/2022 Do You Have An Out Of Hospital DNR? No Information not available 11/24/2022 Do You Use Any Illicit Or Recreational Drugs? No Information not available 11/24/2022 Has Tobacco Cessation Counseling Been Provided? No N/a As Pt No Longer Smokes Information not available 11/24/2022 How Many Years Have You Smoked Tobacco? 30 Information not available 11/24/2022 Do You Or Have You Ever Used Any Other Forms Of Tobacco Or Nicotine? No Information not available 11/24/2022 Sex: Unknown Functional Status None recorded. Mental Status None recorded. Family History Relationship Description Onset Age of this Age Resolved Age Notes LastModified by Organization Details LastModified Time [email or web address] Not available 2022 09:18:22 Father Diabetes mellitus Not available 2022 09:18:35 Father Hypertensive disorder Not available 2022 09:18:43 Medical History No medical history recorded. Gynecological HistoryNo gynecological history recorded. Obstetrics History GPAL:G 0 P 0 0 0 0 Immunizations Vaccine Type Date Status Note Provider Nam e and Address Organization Details Recorded Time pneumococcal polysaccharide PPV23 7 completed [facility] 09/23/2023 15:30:16 pneumococcal polysaccharide PPV23 2 completed Zoila [facility] 09/23/2023 15:31:52 Past Encounters Encounter ID Performer Location Encounter Start Date Encounter Closed Date Diagnosis/Indication Diagnosis SNOMED-CT Code Diagnosis ICD10 Code [id number] Andi Mejia MD [facility] on [address] [place] [address] 10/08/2022 09:16:00 10/13/2022 13:18:32 Acute kidney injury 20313285 N17.8 Chronic ki dney disease stage 3A 057941879 N18.31 Asthenia 37258688 R53.1 Acute hyponatremia 45246 02 E87.1 Morbid obesity 536270877 E66.01 Chronic co mbined systolic and diastolic heart failure 8008001881 29081 I50.42 Nonischemi c congestive cardiomyopathy 8030454442 04 I42.0 Anxiety 79261038 F41.1 Asthma 800544226 J45.99 8 Depressive disorder 3548 9007 F33.8 Chronic pain 98914627 G8 9.29 Chronic constipation 236 016739 K59.09 Chronic ob structive pulmonary disease 49968074 J41.1 Diabetic p eripheral neuropathy 296406265 E11.42 Diabetes mellitus 959591 09 E11.21 Mixed hyperlipidemia 267 059551 E78.2 Essential hypertension 92312056 I10 Obstructiv e sleep apnea syndrome 11820879 G47.33 Panic disorder 823927300 F41.0 Coronary arteriosclerosis 65843474 I25.10 [id number] AHSAN MCCONNELL NP [facility] on [address] [place] [address] 10/14/2022 11:46:11 10/16/2022 16:00:13 Acute kidney injury 89777019 N17.8 Chronic ki dney disease stage 3A 735341623 N18.31 Asthenia 58360905 R53.1 Acute hyponatremia 99743 02 E87.1 Morbid obesity 015321966 E66.01 Chronic co mbined systolic and diastolic heart failure 0167528421 60707 I50.42 Nonischemi c congestive cardiomyopathy 7398597102 04 I42.0 Anxiety 10060010 F41.1 Asthma 553501292 J45.99 8 Depressive disorder 3548 9007 F33.8 Chronic pain 87628790 G8 9.29 Chronic constipation 236 696338 K59.09 Chronic ob structive pulmonary disease 67959022 J41.1 Diabetic p eripheral neuropathy 724941982 E11.42 Diabetes mellitus 642036 09 E11.21 Mixed hyperlipidemia 267 096377 E78.2 Essential hypertension 56343090 I10 Obstructiv e sleep apnea syndrome 98733269 G47.33 Panic disorder 325946535 F41.0 Coronary arteriosclerosis 87060680 I25.10 [id number] Andi Mejia MD [facility] on [address] [place] [address] 10/22/2022 15:37:47 10/24/2022 12:17:55 Chronic kidney disease stage 3A 008651305 N18.31 Asthenia 76754091 R53.1 Acute hyponatremia 25913 02 E87.1 Chronic co mbined systolic and diastolic heart failure 6403676170 08628 I50.42 Essential hypertension 63828328 I10 [id number] CHAKA Hawkins [facility] on [address] [place] [address] 10/27/2022 11:28:29 10/29/2022 10:44:01 Acute constipation 412803523 K59.09 Chronic ki dney disease stage 3A 424014059 N18.31 Acute hyponatremia 22108 02 E87.1 Chronic co mbined systolic and diastolic heart failure 5940885108 66208 I50.42 Essential hypertension 53929554 I10 [id number] Andi Mejia MD [facility] on [address] [place] [address] 10/28/2022 12:36:51 10/30/2022 15:40:26 Panic disorder 956150439 F41.0 [id number] Andi Mejia MD [facility] on [address] [place] [address] 10/31/2022 11:44:27 11/03/2022 16:09:35 Orthostatic hypotension 71431956 I95.1 Essential hypertension 65808733 I10 Pain of le ft shoulder joint 7625811496 5015179 M25.512 Panic disorder 198630515 F41.0 [id number] EPIFANIO CHEN [facility] on [address] [place] [address] 11/13/2022 13:45:01 11/18/2022 16:00:29 Essential hypertension 17343505 I10 Chest pain 66448430 R07. 9 Chronic ki dney disease stage 3A 586941393 N18.31 Anxiety 22657261 F41.1 [id number] CHAKA Hawkins [facility] on [address] [place] [address] 11/17/2022 07:53:39 11/19/2022 11:29:11 Chest pain 65000884 R07.9 Essential hypertension 23430906 I10 Chronic ki dney disease stage 3A 661351230 N18.31 Pain of le ft shoulder joint 8528531697 6166503 M25.512 [id number] PEDRO MONAE NP [facility] on [address] [place] [address] 11/18/2022 14:37:50 11/20/2022 14:56:24 Chronic combined systolic and diastolic heart failure 6628190964 25576 I50.42 Anxiety 40057641 F41.1 [id number] Carolina Dennis MD [facility] on [address] [place] [id number] 11/24/2022 17:49:54 11/28/2022 12:00:50 Chronic combined systolic and diastolic heart failure 8650409575 05690 I50.42 Anxiety 95298945 F41.1 Essential hypertension 66839668 I10 Pain of le ft shoulder joint 0487926570 1515978 M25.512 Orthostati c hypotension 82240410 I95.1 Acute constipation 02500 9006 K59.09 Acute hyponatremia 26734 02 E87.1 Asthenia 81291277 R53.1 Morbid obesity 176720060 E66.01 Asthma 111462996 J45.99 8 Depressive disorder 3548 9007 F33.8 Chronic pain 79191771 G8 9.29 Chronic ob structive pulmonary disease 26000519 J41.1 Diabetic p eripheral neuropathy 559247402 E11.42 Diabetes mellitus 964844 09 E11.21 Mixed hyperlipidemia 267 097092 E78.2 Obstructiv e sleep apnea syndrome 18548125 G47.33 Coronary arteriosclerosis 01265213 I25.10 Chronic ki dney disease stage 4 771188124 N18.4 [id number] Andi Mejia MD [facility] on [address] [place] [address] 11/26/2022 14:50:28 11/28/2022 12:50:15 Acute kidney injury 06671457 N17.8 Chronic ki dney disease stage 3A 853257824 N18.4 Asthenia 90490127 R53.1 Chronic co mbined systolic and diastolic heart failure 4950258541 09471 I50.42 Coronary arteriosclerosis 13023187 I25.10 Health Concerns Section Related Observation LastModified by Organization Detai ls LastModified Time None Recorded Concern Status LastModified by Organization Details LastModified Time None Recorded Advance Directives Directive Y: Payers Encounter Date Sequence Insurance Name Policy Number Policy Drake Covered Member ID Drake Member ID Guarantor Name 11/13/2022 1 [place] Lupis Mueller [id number] Lupis Mueller 11/17/2022 1 [place] Lupis Mueller [id number] Lupis Mueller 11/18/2022 1 [place] Lupis Mueller [id number] Lupis Mueller 11/24/2022 1 [place] [facility] Lupis Mueller [id number] Lupis Mueller 11/26/2022 1 [place] [facility] Lupis Mueller [id number] Lupis Mueller Notes Date Note Type Note Provider Name and Address Organization Details Recorded Time 3 text/html This is a 62 year old female seen today for acute rounding visit. Last night patient complained of chest pain and SOB, was sent to the ED for eval. Labs showed elevated D dimer but provider felt patient's syndrome does not really seem to suggest a pulmonary embolism and further workup was not pursued. Her kidney function also precluded her from CT angiogram. They also stated I do not think her elevated troponins (significantly elevated but not rising) are clinically very significant given her degree of renal insufficiency . She was sent back to the facility with no further interventions.Nursing staff reports that patient has high anxiety and questioning something to help with that. Seen today laying bed began crying when questioned about chest pain yesterday. Reports she feels better than yesterday. She appears very anxious. EPIFANIO CHEN [address] [place] [address], [address], [place], [address], [facility] 11/13/2022 14:07:45 3 text/html pt seen today for acute telemedicine visit. last night pt called 911 and sent herself out to [facility] stating per nurse that she wasn't getting any attention at the facility. however ED notes says that pt was c/o left shoulder pain which is chronic. xray of left shoulder showed osteophytes and joint space narrowing but no fracture. pt could not be started on NSAIDs due to CKD. EKG done in ED showed NSR,Nonspecific T wave abnormalityAbnormal ECGWhen compared with ECG of 12-NOV-2022 23:33,No significant change was found. no concerns per nursing. on 11/12/22 pt complained of chest pain and SOB, was sent to the ED for eval. Labs showed elevated D dimer but provider felt patient's syndrome does not really seem to suggest a pulmonary embolism and further workup was not pursued. Her kidney function also precluded her from CT angiogram. They also stated I do not think her elevated troponins (significantly elevated but not rising) are clinically very significant given her degree of renal insufficiency . pt was sent back to the facility with no further interventions. pt initially admit from ED presenting many times recently by report. presenting c/o weakness and inability to care for herself at home. Found to have ARF on CRF improved with gentle hydration. Previously patient had refused SNF transfer. Diagnosed with adult failure to thrive and severe deconditioning patient did accept tx to SNF for rehab. RUFINO HawkinsP [address], [address], [place], [address], [facility] 11/17/2022 13:34:21 3 text/html seen today for acute rounding visit, CAOx3 in the day room in her wheelchair, she is weepy saying my legs don't work anymore , chatted withher for a few minutes and she calmed, lungs clear, ate well at lunch PEDRO MONAE NP [address], [address], [place], [address], [facility] 11/19/2022 10:31:14 3 text/html This is a 62 yo woman who I am seeing today for a routine MD 60 day reeval rounding visit. She was admitted here on 10/03 after spending several days at the [facility] awaiting placement. She had been seen at the [facility] ED several times in the month prior. Each time for weakness and or pain and each time STR recommended and each time pt. refused. This time she agreed. She also had ARF on CKD and was gently hydrated with improvement.Since here she has participated with rehab and therapy groups. However she continues to be very deconditioned. She has had several falls and several more ED visits since here, one after a fall and other times for chest pain and left shoulder pain. Each time had no acute findings and was returned here.She has a few decub/macerated areas on buttock and inguinal region which are being followed by wound care.Tonight she tells me her bowels are back to every other day. She says she's been doing well with rehab, walking a lot. She also tells me she will have increased help when she goes home, because her nieces are going to start helping also.Her PMH includes HTN, COPD/asthma, CHF combined type, CKD stage 4, AODM, DANIEL, cardiomyopathy, CAD, constipation, anxiety/depression, morbid obesity, chronic pain, HLD, FTT, and panic disorder. he has only moved her bowels twice since she was admitted to this facility. BUSINESS DEVELOPMENT CONSULTANT concurs and [facility] records show this also. pt is eating 75-100% of all her meals. currently on senna 2 qhs and colace daily. pt is making progress with rehab, walking up to 165 feet. ghotra cath recently removed and pt is voiding normally. Carolina Dennis MD [address] [place] [address], [address], [place], [address], [facility] 11/24/2022 20:21:29 3 text/html Patient is a 62 yo female resident seen in preparation for discharge. Patient was initially admit from ED presenting many times recently by report. Patient presenting c/o weakness and inability to care for herself at home. Found to have ARF on CRF improved with gentle hydration. Previously patient had refused SNF transfer. Diagnosed with adult failure to thrive and severe deconditioning patient did accept tx to SNF for rehab. Patient has reached baseline at facility and stable for discharge home. Will require 24/7 supervision with VNA, BOX SEALING MACHINE FEEDER and meals on wheels in place, will be living with daughter. Discussed with SW. Of note labs were ordered yesterday, called labs for result with significant improvement in bun/cre Andi Mejia MD [address] [facility], [address], [place], [address], [facility] 11/26/2022 14:57:47 OBGyn Episode No OBEpisode recorded.
[2024-07-05 12:22] LABS: MANUAL DIFF FLAG NO
[2024-07-05 12:39] LABS: Basophils Percent Auto 0.4 % (0-2); Eosinophils Absolute Auto 0.1 X10*3/uL (0.0-0.4); Eosinophils Percent Auto 1.7 % (0-4); Hematocrit 33.9 % (37.0-47.0); Imm Gran Abs Auto 0.07 X10*3/uL (0.00-0.03); Imm Gran Pct Auto 0.9 % (0.0-0.4); Lymphocytes Absolute Auto 1.1 X10*3/uL (1.2-4.9); Lymphocytes Percent Auto 14.1 % (20-40); Mean Corpuscular HGB Conc 32.4 g/dl (31.0-35.0); Mean Corpuscular Hemoglobin 28.7 pg (27.0-33.0); Mean Corpuscular Volume 88.5 fL (80.0-98.0); Mean Platelet Volume 10.2 fL (9.4-12.3); Monocytes Absolute Auto 0.6 X10*3/uL (0.1-1.2); Neutrophils Absolute Auto 5.8 x10*3/uL (2.0-8.3); Neutrophils Percent Auto 74.9 % (45-73); Platelet Count 141 X10*3/uL (160-400); Red Blood Count 3.83 X10*6/uL (4.20-5.50); Red Cell Distribution Width 14.4 % (11.0-16.0); White Blood Count 7.7 X10*3/uL (4.8-10.8)
[2024-07-05 12:53] LABS: Estimated Average Glucose 200 mg/dL; Hemoglobin A1C 195.7582 umol/L; Hemoglobin A1c % 8.6 % (<6.0); Total Hemoglobin (HGBA1C) 2782.0344 umol/L
[2024-07-05 13:03] LABS: Albumin Level 3.7 g/dL (3.5-5.0); Anion Gap 14 (12-20); Aspartate Amino Transferase 31 U/L (5-31); Bilirubin Total 0.2 mg/dL (0.0-1.0); Blood Urea Nitrogen 47 mg/dL (9-16); Calcium 8.5 mg/dL (8.4-10.2); Carbon Dioxide 27 mmol/L (22-29); Chloride 102 mmol/L (96-108); Cholesterol 126 mg/dL (<200); Estimated Glomerular Filt Rate 29; Glucose Fasting 199 mg/dL (60-99); HDL Cholesterol 32 mg/dL (>40); LDL Cholesterol Calculated 50 mg/dL (<100); Potassium 4.3 mmol/L (3.3-5.1); Sodium 139 mmol/L (135-145); Total Protein 6.7 g/dL (6.5-8.0); Triglycerides 223 mg/dL (<150)
[2024-07-05 13:32] LABS: Alanine Aminotransferase < 6 U/L (0-31); Alkaline Phosphatase 77 U/L (39-117); Thyroid Stimulating Hormone 1.74 uIU/mL (0.32-4.0); Vitamin D 25-OH Total 12.3 ng/mL (>30)
== END ==
LOC: HO.CARD 10:57
PROVIDERS: PCP Internal Medicine; Visit Provider Internal Medicine Cardiovascular Disease
DX: I50.32 Chronic diastolic (congestive) heart failure (principal); E11.9 Type 2 diabetes mellitus without complications; R60.0 Localized edema; N18.9 Chronic kidney disease, unspecified
CPT/HCPCS: 36415; 80053; 80061; 82306; 83036; 84443; 85025; 93306

== ENCOUNTER → 2024-07-05 11:14 | Outpatient (BNV) | payer OTHER, SELFPAY | PROVIDERS: PCP Internal Medicine; Visit Provider Internal Medicine Cardiovascular Disease | DX: I50.32 Chronic diastolic (congestive) heart failure (principal) | CPT/HCPCS: 93306 ==

== ENCOUNTER 2024-07-25 08:49 | Outpatient (AMB) | payer OTHER, SELFPAY ==
--- NOTE | 2024-07-25 08:50 | MHC.OFFVIS ---
Vital Signs 07/25/24 08:51 Height 5 ft 2 in Weight 286 lb 9.615 oz BMI 52.4 BP 120/72 Blood Pressure Location Lt brachial Position Sitting Pulse 73 Pulse Source Pulse Oximeter Intake Visit Reasons: f/up echo. 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: No Allergies ibuprofen Allergy (Intermediate, Verified 07/25/24 08:54) vomiting, itching acetaminophen [Tylenol] Allergy (Unknown, Verified 07/25/24 08:54) Unknown codeine Adverse Reaction (Severe, Verified 07/25/24 08:54) Anaphylaxis morphine Adverse Reaction (Intermediate, Verified 07/25/24 08:54) vomiting vancomycin Adverse Reaction (Intermediate, Verified 07/25/24 08:54) Itching Medication List - Last Reconciled 07/25/24 by GRAHAM GaytanC Alcohol Prep Pads (alcohol swabs) 1 pad topical QID NS aspirin 81 mg PO DAILY BD Insulin Syringe (half unit) (insulin syr/ndl U100 half dionna) As directed NS benzonatate 200 mg PO TID PRN blood-glucose meter (FreeStyle Lite Meter kit) As directed checks POC 4 X/day clonidine HCl 0.1 mg See Protocol PO TID PRN Comfort EZ Pen [place] (pen needle, diabetic) 4 times daily NS dulaglutide (Trulicity) 0.75 mg (0.5 mL) subcut QWEEK duloxetine 30 mg PO QAM fluticasone propionate 110 mcg/actuation (Flovent HFA) 2 puffs inhalation BID FreeStyle Lancets (lancets) four times daily NS FreeStyle Lucy 3 Dexter (blood-glucose meter,continuous) As directed NS FreeStyle Lucy 3 Sensor (blood-glucose sensor) every 14 days NS FreeStyle Lite Strips (blood sugar diagnostic) four times daily NS furosemide (Lasix) 40 mg PO BID gabapentin 400 mg PO BID@0900,1500 hydralazine 25 mg See Protocol PO BID insulin glargine (Lantus U-100 Insulin) 60 units (0.6 mL) subcut DAILY insulin lispro (Humalog U-100 Insulin) 4 units See Protocol subcut TID insulin syringe-needle U-100 (BD Insulin Syringe Ultra-Fine) insulin syringe-needle U-100 (BD Insulin Syringe Ultra-Fine) Four times daily isosorbide mononitrate ER 60 mg (2 x 30 mg) PO DAILY linaclotide (Linzess) 145 mcg PO DAILY lorazepam 0.5 mg PO TID PRN meclizine 25 mg PO TID PRN metoprolol succinate ER 50 mg PO DAILY nystatin 1 appl See Protocol topical BID PRN nystatin 1 appl topical TID 1 week Ozempic (semaglutide) 0.25 mg (0.368 mL) subcut QWEEK 4 weeks NS pantoprazole 20 mg PO BEDTIME 90 days pen needle, diabetic (Comfort EZ Pen [place]) four times daily prazosin 1 mg PO BEDTIME sertraline 75 mg (3 x 25 mg) PO DAILY simvastatin 20 mg PO BEDTIME trazodone 100 mg (2 x 50 mg) PO BEDTIME HPI HPI f/up echo.: Details: Renuka is a 64-year-old female with past medical history of morbid obesity, hypertension, hyperlipidemia, sleep apnea which is untreated, FELICIA, nonischemic cardiomyopathy who recently had an echocardiogram and now presents for follow-up. Today she reports she has been doing well since her last hospital discharge in December. She says her breathing is mostly comfortable however she does have shortness of breath when trying to lay down. She sleeps in a recliner which is her norm. She has been trying to get an electric bed. She has some shortness of breath with exertion which is not new. She ambulates with a walker. No chest discomfort at rest or with activity. No heart palpitations, lightheadedness, presyncope, syncope, falls. 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 She tells me she may need carpal tunnel surgery in the near future. She takes all her meds as directed. Her activity is limited by bad knees. [facility] Medical History (Updated 07/25/24 @ 11:49 by LYNNE Gaytan) DANIEL (obstructive sleep apnea) COPD (chronic obstructive pulmonary disease) NICM (nonischemic cardiomyopathy) Hypertension Mood disorder Elevated d-dimer FELICIA (acute kidney injury) Abdominal pain Constipation Chronic respiratory failure with hypoxia Stercoral colitis Decubitus ulcer Hypoxia CHF exacerbation MDD (major depressive disorder), recurrent episode, moderate Adjustment disorder with mixed anxiety and depressed mood Panic disorder Cellulitis of right lower extremity Stasis dermatitis of both legs Asthma Hyperglycemia due to diabetes mellitus Congestive heart failure Obesity hypoventilation syndrome CKD (chronic kidney disease) stage 3, GFR 30-59 ml/min Acute on chronic combined systolic and diastolic CHF (congestive heart failure) Morbid obesity Diabetic neuropathy, painful Chronic pain High cholesterol Depression Diabetes Surgical History History of surgery Hx of cholecystectomy Family History Mother HTN (hypertension) Diabetes CAD (coronary artery disease) Father HTN (hypertension) Diabetes CAD (coronary artery disease) Maternal Grandmother CAD (coronary artery disease) Social History Household Members: None Household Members Other:: GRANDSON Housing: Condominium Housing Other:: with clinical documentation specialist Do you presently have visiting [facility] or other [facility] Unable to assess alcohol history related to: Unable to respond and Refusing to respond Alcohol intake: never Comment: 1:1 Patient Tobacco Use Status: Former Tobacco user Tobacco use type: Cigarette Years Smoked: 38 e-Cigarette/Vaping Use: Never Used Second Hand Smoke Exposure: No Substance Use Type: Former Substance User Advance Directives Date on File: 04/30/23 service: No Current occupational status: disabled Current occupation: rt handed Review of Systems Const All systems reviewed & are unremarkable except as noted in HPI and below ENT Reports dizziness Card Denies chest pain, Denies chest pain at rest, Denies chest pain with activity, Denies rapid heart rate, Denies pedal edema, Denies edema, Denies leg edema, Denies lightheadedness, Denies palpitations, Reports dyspnea, Denies dyspnea on exertion and Reports orthopnea Resp Denies cough, Reports dyspnea and Denies dyspnea on exertion GI Denies hematochezia and Denies change in stool character Musc Reports abnormal gait (uses walker), Denies limited range of motion, Denies muscle cramps, Denies muscle weakness, Denies numbness, Denies radiating pain into limb, Denies stiffness and Denies tingling Neuro Reports abnormal gait (uses walker), Reports dizziness, Denies numbness and Denies tingling Endo Denies palpitations Physical Exam Vital Signs: Last Vital Signs Pulse 73 07/25/24 08:51 BP 120/72 07/25/24 08:51 BMI result Body Mass Index 52.4 Const Other: morbidly obese General: cooperative, comfortable and no acute distress Orientation/consciousness: patient oriented x3 Resp Other: fine rales in bases - clear with cough and deep breath ( likely atelectasis) Effort & Inspection: normal respiratory effort Auscultation: clear to auscultation bilaterally, no rhonchi and no wheezes Cardio Jugular venous distension: no JVD Rate: regular rate Rhythm: regular rhythm Heart sounds: S1 normal heart sound present, S2 normal heart sound present, no murmurs and no rubs Neuro General: patient oriented x3 Extrem Other: very dry skin on lower legs, nonpitting edema present Psych Appearance: grossly normal Mental Status: mental status grossly normal Speech and movement: Normal speech and movement present Assessment & Plan Assessment & Plan (1) NICM (nonischemic cardiomyopathy): Code(s): I42.8 - Other cardiomyopathies Category: Medical Plan: History of nonischemic cardiomyopathy. Prior EF known to be 40-45%. Nuclear stress test from 2018 showed mild apical defect, EF 37%. Will check with [employer] system to see if there was a cardiac catheterization completed on her. Echocardiogram done 07/05/2024 shows EF 35-40%. On exam she does not appear fluid overloaded though her morbid obesity makes this more challenging. She tells me she does have orthopnea which is not new and she sleeps in a recliner which is her norm. Blood pressure and heart rate are controlled. Will have her continue on current Lasix, hydralazine, isosorbide, metoprolol. She is not on Tanmay Arb due to CKD. Labs done 07/05/2024 showed potassium 4.3, creatinine 1.79-which is similar to prior values. Hemoglobin A1c 8.6. Signs and symptoms of heart failure reviewed with her. Instructed on low-salt diet. Cardiology follow-up 4 months, sooner if needed (2) Chronic heart failure with reduced ejection fraction (HFrEF, <= 40%): Code(s): I50.22 - Chronic systolic (congestive) heart failure Category: Medical Plan: Stable at present (3) Hypertension: Code(s): I10 - Essential (primary) hypertension Category: Medical Plan: Well controlled at this time. No med changes made (4) COPD (chronic obstructive pulmonary disease): Code(s): J44.9 - Chronic obstructive pulmonary disease, unspecified Category: Medical Plan: Follows with pulmonology (5) DANIEL (obstructive sleep apnea): Code(s): G47.33 - Obstructive sleep apnea (adult) (pediatric) Category: Medical Plan: History of sleep apnea. Tells me she was not able to sleep with the mask. Plan Time spent on chart review, documentation, interview and assessment Coding Level of Care Code Est Pt Level 4 (51594) Complex EM visit Add On G2211 Diagnoses NICM (nonischemic cardiomyopathy) I42.8 Chronic heart failure with reduced ejection fraction (HFrEF, <= 40%) I50.22 Hypertension I10 COPD (chronic obstructive pulmonary disease) J44.9 DANIEL (obstructive sleep apnea) G47.33 Time Spent (min) 32
[2024-07-25 08:51] VITALS: BP 120/72; PULSE 73; BMI 52.4
--- OUTSIDE RECORDS SUMMARY | 2024-07-25 09:16 | XMS_ITS | Data Portability ---
Author Organization [facility], Main Office Address [address], [address] [place] [address] Care Team Providers Care Care Manager Cna Name Role Phone SISI WATSON Primary Care Provider [phone] [facility] OTHER Assessment Encounter Date Assessment Date Assessment LastModified by Organization Details LastModified Time 11/17/2022 11/17/2022 11/13/22 wbc 11.9, hgb 9.9, plt 226, na 140, k 4.9, bun 103, creat 3.30, LFTs normal [id number] Not available 11/17/2022 13:30:40 11/24/2022 11/24/2022 11/13/22 [...] Recorded Time Chronic kidney disease stage 3A 847640635 Active 2022 Andi Mejia MD [address] [facility], [address], [place], [address], [facility] 3 09:24:07 Morbid obesity 842194425 Active 2022 Andi Mejia MD [address], [address], [place], [address], [facility] [facility] 3 09:29:42 Chronic combined systolic and diastolic heart failure 1763947519741 00 Active 2022 Andi Mejia MD [address], [address], [place], [address], [facility] 3 09:29:52 Nonischemic congestive cardiomyopa thy 547898374930 Active 2022 Andi Mejia MD [address], [address], [place], [address], [facility] 3 09:30:08 Anxiety 41107377 Active 2022 Andi Mejia MD [address], [address], [place], [address], [facility] 3 09:30:15 Depressive disorder 19003216 Active 2022 Andi Mejia MD [address], [address], [place], [address], [facility] 3 09:30:19 Asthma 168634855 Active 2022 Andi Mejia MD [address], [address], [place], [address], [facility] 3 09:30:26 Chronic pain 36032912 Active 2022 Andi Mejia MD [address], [address], [place], [address], [facility] 3 09:30:32 Chronic constipatio n 613434892 Active 2022 Andi Mejia MD [address], [address], [place], [address], [facility] 3 09:30:40 Chronic obstructive pulmonary disease 95511560 Active 2022 Andi Mejia MD [address], [address], [place], [address], [facility] 3 09:30:44 Diabetic peripheral neuropathy 944926098 Active 2022 Andi Mejia MD [address], [address], [place], [address], [facility] 3 09:30:56 Diabetes mellitus 03290415 Active 2022 Andi Mejia MD [address], [address], [place], [address], [facility] [facility] 3 09:31:01 Mixed hyperlipide matilda 899603387 Active 2022 Andi Mejia MD [address], [address], [place], [address], [facility] [facility] 3 09:31:09 Essential hypertensio n 32273821 Active 2022 Andi Mejia MD [address], [address], [place], [address], [facility] 3 09:31:15 Obstructive sleep apnea syndrome 75663565 Active 2022 Andi Mejia MD [address], [address], [place], [address], [facility] 3 09:31:20 Panic disorder 889552492 Active 2022 Andi Mejia MD [address], [address], [place], [address], [facility] 3 09:31:26 Coronary arterioscle rosis 11199737 Active 2022 Andi Mejia MD [address], [address], [place], [address], [facility] 3 09:31:30 Chronic kidney disease stage 4 256440852 Active 2022 Carolina Dennis MD [address], [address], [place], [address], [facility] 3 18:36:56 Acute hyponatremi a 8287020 Active 2022 Carolina Dennis MD [address] [facility], [address], [place], [address], [employer] 3 18:43:11 Asthenia 55407255 Active 2022 Carolina Dennis MD [address] [facility], [address], [place], [address], [facility] [employer] 3 18:43:57 Problem Notes None recorded. Medical Equipment None Reported. Allergies Allergen ID Allergen Name Allergen Category Reaction Reaction Severity Criticality Documentation Date Start Date Code Code System Note Provider Name and Address Organization Details Recorded Time [id number] 502595474 6458550b2 2824e ibuprofen medicatio n Not available Not available Not available 10/08/2022 5640 RxNorm Not Available Not Available Not Available [id number] 913757777 2236388d3 2824e Tylenol medicatio n Not available Not available Not available 10/08/2022 25896 3 RxNorm Not Available Not Available Not Available [id number] 402589694 1479129s4 2824e morphine medicatio n Not available Not [...] 124 mm[Hg] 70 mm[Hg] CHAKA Hawkins [address] [facility], [address], [place], [address], [facility] [employer] 3 07:57:14 Date Recorded Heart rate Respiratory rate Body temperature Oxygen saturation Oxygen saturation in Arterial blood by Pulse oximetry Provider Name and Address Organization Details Last Updated DateTime 3 74 /min 16 /min 97.8 [degF] 96 % 96 % PEDRO MONAE NP [address] [facility], [address], [place], [address], [facility] 3 15:33:19 Date Recorded Body weight Body mass index (BMI) Body height Heart rate Respiratory rate Body temperature Oxygen saturation Oxygen saturation in Arterial blood by Pulse oximetry Systolic blood pressure Diastolic blood pressure Provider Name and Address Organization Details Last Updated DateTime 3 851841. 54 g 44.6 kg/m2 157.48 cm 80 /min 18 /min 97.6 [degF] 96 % 96 % 148 mm[Hg] 82 mm[Hg] Carolina Dennis MD [address] [facility], [address], [place], [address], [facility] 3 18:00:03 Social History Question Answer Notes LastModified by Organizat ion Details LastModified Time Tobacco Smoking Status Former Smoker quit 1999 30+ pack year hx Andi Mejia MD [address] [facility], [facility] [address], [place], [address], [facility] 10/08/2022 11:59:39 Do You Have An Advance Directive? Yes Information not available 10/08/2022 What Is Your Level Of Alcohol Consumption? None Information not available 10/08/2022 What Is Your Code Status? Full Code Information not available 10/08/2022 Where Do You Live? Apartment Information not available 11/24/2022 Legal Guardian? 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 Gynecological HistoryNo gynecological history recorded. Obstetrics History GPAL:G 0 P 0 0 0 0 Immunizations Vaccine Type Date Status Note Provider Nam e and Address Organization Details Recorded Time pneumococcal polysaccharide PPV23 7 completed [facility] 09/23/2023 15:30:16 pneumococcal polysaccharide PPV23 2 completed Zoila Ryan [facility] 09/23/2023 15:31:52 Past Encounters Encounter ID Performer Location Encounter Start Date Encounter Closed Date Diagnosis/Indication Diagnosis SNOMED-CT Code Diagnosis ICD10 Code Diagnosis Note [id number] Andi Mejia MD [facility] on [address] [place] [address] 10/08/2022 09:16:00 10/13/2022 13:18:32 Acute kidney injury 63964907 N17.8 ARF on CRF stage 3 at baseline however appear to be stage 4improved with IVFmonitor renal functionav oid nephrotoxi c meds as ablenephro consult Chronic ki dney disease stage 3A 098986358 N18.31 carrying dx of crf stage 3 however appear stage 4 Asthenia 88982999 R53.1 severe deconditio ningPT OT eval and treatmonit or need for increased services in community vs need to transition to LTC Acute hyponatremia 19642 02 E87.1 Rx=896 in hospitalre peat bmp and monitor lytes Morbid obesity 201162136 E66.01 dietary to eval Chronic co mbined systolic and diastolic heart failure 5109656410 01133 I50.42 bumex 2 mg qam 1 mg qpmspirono lactone 25 mg bidmonitor respirator y and fluid statusmoni tor renal function with recent arf on crf Nonischemi c congestive cardiomyopathy 5091613210 04 I42.0 added to PMHcontinu e current meds Anxiety 55877668 F41.1 fluoxetine 40 mg qdrisperda l 1 mg bid question dx of bipolarto contact PCP for full dx listpsych to evalmonito r for behaviors Asthma 066166655 J45.99 8 at baselineal buterol MDI prn Depressive disorder 3548 9007 F33.8 see above Chronic pain 17355046 G8 9.29 gabapentin 400 mg tidoxycodo ne 5 mg q 6 prnmonitor for effect Chronic constipation 236 873361 K59.09 bowel protocol Chronic ob structive pulmonary disease 52268137 J41.1 carrying dxadded to PMHmonitor respirator y status Diabetic p eripheral neuropathy 772483665 E11.42 gabapentin 400 mg tidmonitor for effect Diabetes mellitus 613981 09 E11.21 lantus 50 units bidSS insulinmon itor blood glucose and need to titrate Mixed hyperlipidemia 267 602777 E78.2 simvastati n 20 mg qdcontinue d Essential hypertension 26671406 I10 appears to have difficult to control htn current onbumex 2 mg qam 1 mg qpmspirono lactone 25 mg bidmetopro lol 50 mg qdnorvasc 5 mg qdimdur 30 mg qdhydralaz ine 25 mg bidmonitor bp and need to titrate Obstructiv e sleep apnea syndrome 58849975 G47.33 carrying dx added to PMH Panic disorder 666308171 F41.0 see aboveon risperdalp sych to eval Coronary arteriosclerosis 35884513 I25.10 metoprolol 50 mg qdASA 81 mg qdsimvasta tin 20 mg qdcontinue d [id number] AHSAN MCCONNELL NP [facility] [address] [place] [address] 10/14/2022 11:46:11 10/16/2022 16:00:13 Acute kidney injury 27053904 N17.8 ARF on CRF stage 3 at baseline however appear to be stage 4improved with IVFmonitor renal function - check CMP in am x 1avoid nephrotoxi c meds as able; is on diureticsn ephro consult prn Chronic ki dney disease stage 3A 143641724 N18.31 carrying dx of crf stage 3 however appear stage 4 Asthenia 59156419 R53.1 severe deconditio ningPT OT eval and treatmonit or need for increased services in community vs need to transition to LTC Acute hyponatremia 57204 02 E87.1 Db=783 in hospitalCM P x 1 in am Morbid obesity 697923455 E66.01 dietary to evalChange diet from regular to carb control Chronic co mbined systolic and diastolic heart failure 2426603205 04924 I50.42 bumex 2 mg qam 1 mg qpmspirono lactone 25 mg bidmonitor respirator y and fluid statusmoni tor renal function with recent arf on crf - CMP in am Nonischemi c congestive cardiomyopathy 4374291800 04 I42.0 added to PMHcontinu e current meds Anxiety 30008351 F41.1 fluoxetine 40 mg qdrisperda l 1 mg bid question dx of bipolarto contact PCP for full dx list - re-request edpsych to cassie mccain for behaviors Asthma 850288732 J45.99 8 at baselineal buterol MDI prn Depressive disorder 3548 9007 F33.8 see above Chronic pain 51210322 G8 9.29 gabapentin 400 mg tidoxycodo ne 5 mg q 6 prnmonitor for effect Chronic constipation 236 442959 K59.09 Add senna-s 2 tabs dailybowel protocolMo nitor and adjust as needed Chronic ob structive pulmonary disease 02148732 J41.1 carrying dxadded to PMHmonitor respirator y status Diabetic p eripheral neuropathy 545692973 E11.42 gabapentin 400 mg tidmonitor for effect Diabetes mellitus 858786 09 E11.21 lantus 50 units bidSS insulinmon itor blood glucose and need to eoosnnoT7Y x 1 in am Mixed hyperlipidemia 267 006079 E78.2 simvastati n 20 mg qdCMP, lipids x 1 in amcontinue d Essential hypertension 79658833 I10 appears to have difficult to control htn current onbumex 2 mg qam 1 mg qpmspirono lactone 25 mg bidmetopro lol 50 mg qdnorvasc 5 mg qdimdur 30 mg qdhydralaz ine 25 mg bidmonitor bp and need to titrate Obstructiv e sleep apnea syndrome 15842659 G47.33 carrying dx added to PMH Panic disorder 668679082 F41.0 see aboveon risperdalp sych to eval Coronary arteriosclerosis 02340578 I25.10 metoprolol 50 mg qdASA 81 mg qdsimvasta tin 20 mg qdcontinue d [id number] Andi Mejia MD [facility] on [address] [place] [address] 10/22/2022 15:37:47 10/24/2022 12:17:55 Chronic kidney disease stage 3A 083783553 N18.31 carrying dx of crf stage 3 however appear stage 4monitor renal functionla bs ordered for tomorrow then q tuesdaysav oid nephrotoxi c meds as ablerefer to nephrowill attempt voiding trial in am with bladder scan q shift and straight cath if > 300cc Asthenia 84291916 R53.1 improving with therapynow able to ambulate up to 100 feet with walker with contact guardmonit or need for increased services in community vs need to transition to LTC Acute hyponatremia 38524 02 E87.1 Wq=124 in [facility] bmp and monitor lytesorder ed for tomorrow Chronic co mbined systolic and diastolic heart failure 0284765679 51366 I50.42 bumex 2 mg qam 1 mg qpmspirono lactone 25 mg bidmonitor respirator y and fluid statusmoni tor renal function with recent arf on crf Essential hypertension 27822038 I10 bumex 2 mg qam 1 mg qpmspirono lactone 25 mg bidmetopro lol 50 mg qdnorvasc 5 mg qdimdur 30 mg qdhydralaz ine 25 mg bidmonitor bp and need to titrate [id number] CHAKA Hawkins [facility] on [address] [place] [address] 10/27/2022 11:28:29 10/29/2022 10:44:01 Acute constipation 413798460 K59.09 xray of abdomen for unknown amount of stool in rectum due to constipati onadd miralax 17 grams bid with 6 oz fluidpt unable to receive MOM or fleets due to CKDcontinu e senna 8.6 mg 2 qhsincreas e colace to 100 mg bidwait for xray results to determine next stepconsid er milk and molasses enema in 1:1 ratio if pt remains constipate d Chronic ki dney disease stage 3A 898799136 N18.31 bun/creat remains elevated, though lab results as above slightly better on 10/23/22avoi d nephrotoxi c meds as ablerefer to nephro - 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 Acute hyponatremia 75795 02 E87.1 Na 139 on 10/23/22labs weekly on Tuesdays Chronic co mbined systolic and diastolic heart failure 5111857646 29057 I50.42 compensate dbumex 2 mg q am, 1 mg q pmspironol actone 25 mg bidmonitor fluid statusmoni tor renal function as above Essential hypertension 77067399 I10 ortho BPs bid x 3 dayswill dc hydralazin e 25 mg bid nowbumex 2 mg q am, 1 mg q pmspironol actone 25 mg bidmetopro lol 50 mg qdnorvasc 5 mg qdimdur 30 mg qdmonitor bp and need to titrate [id number] Andi Mejia MD [facility] on [address] [place] [address] 10/28/2022 12:36:51 10/30/2022 15:40:26 Panic disorder 149950293 F41.0 appears to be experienci ng panic attackvita l stablestar t ativan 0.5 mg q 4 november repeat in 30 min for effectscri pt and e kit script writtento ED for acute decompensa tionof note labs were ordered for today however not drawn [id number] Andi Mejia MD [facility] on [address] [place] [address] 10/31/2022 11:44:27 11/03/2022 16:09:35 Orthostatic hypotension 28832798 I95.1 with therapy stating bp dropped to 80's/40's when standing Essential hypertension 51029585 I10 see abovebumex 2 mg qam 1 mg qpmspirono lactone 25 mg bidmetopro lol 50 mg qd(norvasc 5 mg qd now discontinu ed)imdur 30 mg qdhydralaz ine 25 mg bidmonitor bp and need to titrate Pain of le ft shoulder joint 1444905425 5459812 M25.512 probable underlying OAx ray orderedawa it results Panic disorder 646585864 F41.0 patient now much improved and back to baselinemo nitor need to titrate ativan [id number] EPIFANIO CHEN [facility] on [address] [place] [address] 11/13/2022 13:45:01 11/18/2022 16:00:29 Essential hypertension 47200706 I10 continue bumex 2 mg qam 1 mg qpmspirono lactone 25 mg bidmetopro lol 50 mg qdimdur 30 mg qdhydralaz ine 25 mg bidmonitor bp and need to titrate Chest pain 79176226 R07. 9 see HPIno changes to plan of care despite elevated D dimer and tropnot felt to be pleuriticO rdered prn nitro for chest pain Chronic ki dney disease stage 3A 480048171 N18.31 likely moving to end stage with creat of 103 and bun 3.30encour age PO fluidsavoi d nephrotoxi c meds Anxiety 60431339 F41.1 ativan 0.5 mg q 4 hours PRNcontinu e [id number] CHAKA Hawkins [facility] on [address] [place] [address] 11/17/2022 07:53:39 11/19/2022 11:29:11 Chest pain 06780260 R07.9 no chest pain while in ED last night and EKG reassuring no changes to plan of care despite elevated D dimer and tropnot felt to be pleuriticp rn nitro available for chest pain Essential hypertension 55674854 I10 bp normalbume x 2 mg q am, 1 mg q pmspironol actone 25 mg bidmetopro lol 50 mg qdimdur 30 mg qdmonitor bp and adjust meds prn Chronic ki dney disease stage 3A 008962537 N18.31 likely moving to end stage with creat of 103 and bun 3.30encour age PO fluidsavoi d nephrotoxi c medsmonito r renal functionre jerry to nephro if pt and family agree Pain of le ft shoulder joint 5334935423 9661092 M25.512 is chronicno fracture on xray in ED though does have osteophyte s and joint space narrowingc ontinue tizanidine 4 mg qhs [id number] PEDRO MONAE NP [facility] on [address] [place] [address] 11/18/2022 14:37:50 11/20/2022 14:56:24 Chronic combined systolic and diastolic heart failure 1235345853 40335 I50.42 compensate d bumex 2 mg q am, 1 mg q pm spironolac tone 25 mg bid monitor fluid status monitor renal function Anxiety 33279126 F41.1 ativan 0.5 mg q 4 hours PRNpsych prn [id number] Carolina Dennis MD [facility] on [address] [place] [address] 11/24/2022 17:49:54 11/28/2022 12:00:50 Chronic combined systolic and diastolic heart failure 6579310419 38838 I50.42 Appears euvolemic. Continue metoprolol 50 mg qd, bumex 2 mg q am and 1 mg q pm and spironolac tone 25 mg BIDMay need to decrease diuretics depending on renal functionMo nitor resp. status, fluid status, wts and labs. Anxiety 09659194 F41.1 Continue fluoxetine 30 mg qd and lorazepam 0.5 mg q 4 hrs prn.Monito r mood.Psych following. Essential hypertension 91554369 I10 Last check borderline , but otherwise good.Katherin nue bumex 2 mg q am and 1 mg q pm, spironolac tone 25 mg BID, metoprolol 50 mg qd, and imdur 30 mg qd.BP not being checked regularly, will order for M&F.Monito r BP and labs. Pain of le ft shoulder joint 1587453653 0249567 M25.512 Chronic pain with evidence of moderately severe OA per xray.With allergies to APAP, ibuprofen and morphine.W ill continue oxycodone 5 mg q 6 hrs prn.Will use ice, heat and PT and consider referral for steroid injection. Orthostati c hypotension 08040003 I95.1 Happened one time with rehab.No further episodes.M onitor. Acute constipation 9006 K59.09 Improved on increased bowel regimen.Co ntinue bowel meds as ordered.Mo nitor bowel function. Acute hyponatremia 80246 02 E87.1 No labs since 11/13, will reorder weekly labs. Asthenia 73468850 R53.1 Remains deconditio sissy.Contin ues to need PT/OT for strengthen ing, balance, gait training, safety and function.C ontinue fall precaution s.Monitor for safety.Mon itor for needs in terms of outpt services versus LTC. Morbid obesity 602610062 E66.01 Continue to encourage healthy eating.Mon itor. Asthma 192456658 J45.99 8 As above. Depressive disorder 3548 9007 F33.8 see above Chronic pain 77247862 G8 9.29 With renal failure rec for gabapentin is qd.Will change to gabapentin 600 mg qd and continue tizanidine 4 mg qhs, and oxycodone 5 mg q 6 prnMonitor sxs Chronic ob structive pulmonary disease 85696873 J41.1 Combined obstructiv e and restrictiv e disease per PFTS in past.Katherin nue Flovent 110 mcg 2 puffs BID, and albuterol HFA 2 puffs q 4 hrs prn.Monito r resp status. Diabetic p eripheral neuropathy 106162718 E11.42 As above Diabetes mellitus 348841 09 E11.21 Sugars in good control since here. HgA1C was 8.5 in 3Cont inue lantus 50U BID and SSI.Monito r fingerstic ks TID and HgA1C q 3 months. Mixed hyperlipidemia 267 403297 E78.2 Continue simvastati n 20 mg qdMonitor labs yearly Obstructiv e sleep apnea syndrome 66024900 G47.33 Not on CPAP.Consi jo-ann sleep study. Coronary arteriosclerosis 93174718 I25.10 No recent sxs (recent chest pain not thought to be cardiac.)C ontinue meds as above.F/U with cardio prn. Chronic ki dney disease stage 4 827641842 N18.4 No labs since 11/13.With severely elevated BUN.Will order labs for tomorrow.N eeds renal consult.Wi ll be real balancing act with management of CHF and CKD. [id number] Andi Mejia MD [facility] on [address] [place] [address] 11/26/2022 14:50:28 11/28/2022 12:50:15 Acute kidney injury 96478023 N17.8 ARF on CRF stage 3 at baseline however appear to be stage 4improved with IVFmonitor renal functionav oid nephrotoxi c meds as ablenephro consult Chronic ki dney disease stage 3A 689037013 N18.4 see HPImonitor renal function on bumex and spironolac tone for CHFrepeat bmp at f/u with pcp Asthenia 99478992 R53.1 will need 24 hour supervisio n now in place in community Chronic co mbined systolic and diastolic heart failure 5761121154 64520 I50.42 bumex 2 mg qam 1 mg qpmspirono lactone 25 mg bidmonitor respirator y and fluid statusmoni tor renal function with recent arf on crf Coronary arteriosclerosis 01971168 I25.10 metoprolol 50 mg qdASA 81 mg qdsimvasta tin 20 mg qdcontinue d Health Concerns Section Related Observation LastModified by Organization Detai ls LastModified Time None Recorded Concern Status LastModified by Organization Details LastModified Time None Recorded Advance Directives Directive Y: Payers Encounter Date Sequence Insurance Name Policy Number Policy Drake Covered Member ID Drake Member ID Guarantor Name 11/13/2022 1 [place] Lupis Mueller [id number] Lupis Mueller 11/17/2022 1 [place] Lupis Mueller [id number] Lupis Mueller 11/18/2022 1 [place] Lupis Mueller [id number] Lupis Mueller 11/24/2022 1 [place] Lupis Mueller [id number] Lupis Mueller 11/26/2022 1 [place] Lupis Mueller [id number] Lupis Mueller Notes Date Note Type Note [...] yesterday. She appears very anxious. EPIFANIO CHEN [address] [facility], [address], [place], [address], [facility] [employer] 11/13/2022 14:07:45 3 text/html pt seen today for acute telemedicine visit. last night pt called 911 and sent herself out to [facility] ED stating per nurse that she wasn't [...] did accept tx to SNF for rehab. CHAKA Hawkins [address], [address], [place], [address], [facility] [employer] 11/17/2022 13:34:21 3 text/html seen today for acute rounding visit, DARNELLx3 in the day room in her wheelchair, she is weepy saying my legs don't work anymore , chatted withher for a few minutes and she calmed, lungs clear, ate well at lunch PEDRO MONAE, NINFA [address] [facility], [address], [place], [address], [facility] [employer] 11/19/2022 10:31:14 3 text/html This is a 62 yo woman who I am seeing today for a routine MD 60 day reeval rounding visit. She was admitted here on 10/03 after spending several days at the [facility] awaiting placement. She had been seen at the [facility] several times in the month prior. [...] since she was admitted to this facility. GENERAL UTILITY WORKER concurs and [facility] records show this also. pt is eating 75-100% of all her meals. currently on senna 2 qhs and colace daily. pt is making progress with rehab, walking up to 165 feet. ghotra cath recently removed and pt is voiding normally. Carolina Dennis MD [address] [facility], [address], [place], [address], [facility] [employer] 11/24/2022 20:21:29 3 text/html Patient is [...] home. Will require 24/7 supervision with VNA, FIREWORKS INSPECTOR and meals on wheels in place, will be living with daughter. Discussed with SW. Of note labs were ordered yesterday, called labs for result with significant improvement in bun/cre Andi Mejia MD [address] [facility], [address], [place], [address], [facility] [employer] [facility] 11/26/2022 14:57:47 OBGyn Episode No OBEpisode recorded.
== END 2024-07-25 09:26 | disposition home or self-care (01) ==
PROVIDERS: PCP Internal Medicine; Visit Provider Nurse Practitioner Family
DX: I42.8 Other cardiomyopathies (principal); I50.22 Chronic systolic (congestive) heart failure; I10 Essential (primary) hypertension; J44.9 Chronic obstructive pulmonary disease, unspecified; G47.33 Obstructive sleep apnea (adult) (pediatric)
CPT/HCPCS: 99214; G2211

== ENCOUNTER → 2024-07-25 08:49 | Outpatient (BNVA) | payer OTHER, SELFPAY | PROVIDERS: PCP Internal Medicine; Visit Provider Nurse Practitioner Family | DX: I11.0 Hypertensive heart disease with heart failure (principal); I50.22 Chronic systolic (congestive) heart failure; I42.8 Other cardiomyopathies; J44.9 Chronic obstructive pulmonary disease, unspecified; G47.33 Obstructive sleep apnea (adult) (pediatric) | CPT/HCPCS: 99212 ==

== ENCOUNTER 2024-07-27 13:45 | Outpatient (AMB) | payer OTHER, SELFPAY ==
--- OUTSIDE RECORDS SUMMARY | 2024-07-27 13:49 | XMS_ITS | Data Portability ---
Author Organization [facility], Main Office Address [address] [facility], [address] [place] [address] Care Team Providers [employer] Name Role Phone SISI WATSON Primary Care Provider [phone] [facility] ([facility]) OTHER Assessment Encounter Date Assessment Date Assessment LastModified by Organization Details LastModified Time 11/17/2022 11/17/2022 11/13/22 wbc 11.9, hgb 9.9, plt 226, na 140, k 4.9, bun 103, creat 3.30, LFTs normal Not available 11/17/2022 13:30:40 11/24/2022 11/24/2022 11/13/22 [...] Recorded Time Chronic kidney disease stage 3A 603890598 Active 2022 Andi Mejia MD [address] [facility], [address], [place], [address], [facility] 3 09:24:07 Morbid obesity 777790179 Active 2022 Andi Mejia MD [address], [address], [place], [address], [employer] 3 09:29:42 Chronic combined systolic and diastolic heart failure 4933329114076 00 Active 2022 Andi Mejia MD [address], [address], [place], [address], [facility] 3 09:29:52 Nonischemic congestive cardiomyopa thy 353365924780 Active 2022 Andi Mejia MD [address], [address], [place], [address], [facility] 3 09:30:08 Anxiety 63693754 Active 2022 Andi Mejia MD [address], [address], [place], [address], [facility] 3 09:30:15 Depressive disorder 46242612 Active 2022 Andi Mejia MD [address], [address], [place], [address], [facility] 3 09:30:19 Asthma 984061709 Active 2022 Andi Mejia MD [address], [address], [place], [address], [facility] 3 09:30:26 Chronic pain 00978293 Active 2022 Andi Mejia MD [address], [address], [place], [address], [facility] 3 09:30:32 Chronic constipatio n 476616107 Active 2022 Andi Mejia MD [address], [address], [place], [address], [facility] 3 09:30:40 Chronic obstructive pulmonary disease 34303053 Active 2022 Andi Mejia MD [address], [address], [place], [address], [facility] 3 09:30:44 Diabetic peripheral neuropathy 365896119 Active 2022 Andi Mejia MD [address], [address], [place], [address], [facility] 3 09:30:56 Diabetes mellitus 34971375 Active 2022 Andi Mejia MD [address], [address], [place], [address], [facility] 3 09:31:01 Mixed hyperlipide matilda 687100288 Active 2022 Andi Mejia MD [address], [address], [place], [address], [facility] 3 09:31:09 Essential hypertensio n 18589239 Active 2022 Andi Mejia MD [address], [address], [place], [address], [facility] 3 09:31:15 Obstructive sleep apnea syndrome 49697951 Active 2022 Andi Mejia MD [address], [address], [place], [address], [facility] 3 09:31:20 Panic disorder 091416854 Active 2022 Andi Mejia MD [address], [address], [place], [address], [facility] 3 09:31:26 Coronary arterioscle rosis 92139184 Active 2022 Andi Mejia MD [address], [address], [place], [address], [facility] 3 09:31:30 Chronic kidney disease stage 4 994816931 Active 2022 Carolina Dennis MD [address], [address], [place], [address], [facility] 3 18:36:56 Acute hyponatremi a 0632321 Active 2022 Carolina Dennis MD [address] [facility], [address], [place], [address], [employer] 3 18:43:11 Asthenia 77207321 Active 2022 Carolina Dennis MD [address] [facility], [address], [place], [address], [facility] [employer] 3 18:43:57 Problem Notes None recorded. Medical Equipment None Reported. Allergies Allergen ID Allergen Name Allergen Category Reaction Reaction Severity Criticality Documentation Date Start Date Code Code System Note Provider Name and Address Organization Details Recorded Time [id number] 2824e ibuprofen medicatio n Not available Not available Not available 10/08/2022 5640 RxNorm Not Available Not Available Not Available [id number] 558201804 5869388r9 2824e Tylenol medicatio n Not available Not available Not available 10/08/2022 86884 3 RxNorm Not Available Not Available Not Available [id number] 724547609 6624159l1 2824e morphine medicatio n Not available Not [...] 124 mm[Hg] 70 mm[Hg] CHAKA Hawkins [address] [facility], [address], [place], [address], [facility] [employer] 3 07:57:14 Date Recorded Heart rate Respiratory rate Body temperature Oxygen saturation Oxygen saturation in Arterial blood by Pulse oximetry Provider Name and Address Organization Details Last Updated DateTime 3 74 /min 16 /min 97.8 [degF] 96 % 96 % PEDRO MONAE NP [address] [facility], [address], [place], [address], [facility] 3 15:33:19 Date Recorded Body weight Body mass index (BMI) Body height Heart rate Respiratory rate Body temperature Oxygen saturation Oxygen saturation in Arterial blood by Pulse oximetry Systolic blood pressure Diastolic blood pressure Provider Name and Address Organization Details Last Updated DateTime 3 169509. 54 g 44.6 kg/m2 157.48 cm 80 /min 18 /min 97.6 [degF] 96 % 96 % 148 mm[Hg] 82 mm[Hg] Carolina Dennis MD [address] [facility], [address], [place], [address], [facility] 3 18:00:03 Social History Question Answer Notes LastModified by Organizat ion Details LastModified Time Tobacco Smoking Status Former Smoker quit 1999 30+ pack year hx Andi Mejia MD [address] [facility], [place], [address], [facility] 10/08/2022 11:59:39 Do You Have An Advance Directive? Yes Information not available 10/08/2022 What Is Your Level Of Alcohol Consumption? None Information not available 10/08/2022 What Is Your Code Status? Full Code Information not available 10/08/2022 Where Do You Live? Apartment Information not available 11/24/2022 Legal Guardian? No Informati on not available 11/24/2022 Do You Have A Medical Power Of Service Plumber? Yes Information not available 11/24/2022 What Was [...] Organization Details LastModified Time Mother Diabetes mellitus [email or web address] Not available 2022 09:18:22 Father Diabetes mellitus Not available 2022 09:18:35 Father Hypertensive disorder Not available 2022 09:18:43 Medical History No medical history recorded. Gynecological HistoryNo gynecological history recorded. Obstetrics History GPAL:G 0 P 0 0 0 0 Immunizations Vaccine Type Date Status Note Provider Nam e and Address Organization Details Recorded Time pneumococcal polysaccharide PPV23 7 completed [facility] 09/23/2023 15:30:16 pneumococcal polysaccharide PPV23 2 completed Zoila Ryan [facility] 09/23/2023 15:31:52 Past Encounters Encounter ID Performer Location Encounter Start Date Encounter Closed Date Diagnosis/Indication Diagnosis SNOMED-CT Code Diagnosis ICD10 Code Diagnosis Note [id number] Andi Mejia MD [facility] [address] [place] [address] 10/08/2022 09:16:00 10/13/2022 13:18:32 Acute kidney injury 18050020 N17.8 ARF on CRF stage 3 at baseline however appear to be stage 4improved with IVFmonitor renal functionav oid nephrotoxi c meds as ablenephro consult Chronic ki dney disease stage 3A 169084261 N18.31 carrying dx of crf stage 3 however appear stage 4 Asthenia 13315405 R53.1 severe deconditio ningPT OT eval and treatmonit or need for increased services in community vs need to transition to LTC Acute hyponatremia 00516 02 E87.1 Ra=471 in hospitalre peat bmp and monitor lytes Morbid obesity 602553316 E66.01 dietary to eval Chronic co mbined systolic and diastolic heart failure 8784368716 03621 I50.42 bumex 2 mg qam 1 mg qpmspirono lactone 25 mg bidmonitor respirator y and fluid statusmoni tor renal function with recent arf on crf Nonischemi c congestive cardiomyopathy 8731037830 04 I42.0 added to PMHcontinu e current meds Anxiety 39465468 F41.1 fluoxetine 40 mg qdrisperda l 1 mg bid question dx of bipolarto contact PCP for full dx listpsych to evalmonito r for behaviors Asthma 698651221 J45.99 8 at baselineal buterol MDI prn Depressive disorder 3548 9007 F33.8 see above Chronic pain 12948222 G8 9.29 gabapentin 400 mg tidoxycodo ne 5 mg q 6 prnmonitor for effect Chronic constipation 236 941530 K59.09 bowel protocol Chronic ob structive pulmonary disease 71343698 J41.1 carrying dxadded to PMHmonitor respirator y status Diabetic p eripheral neuropathy 387564851 E11.42 gabapentin 400 mg tidmonitor for effect Diabetes mellitus 546367 09 E11.21 lantus 50 units bidSS insulinmon itor blood glucose and need to titrate Mixed hyperlipidemia 267 654892 E78.2 simvastati n 20 mg qdcontinue d Essential hypertension 34997433 I10 appears to have difficult to control htn current onbumex 2 mg qam 1 mg qpmspirono lactone 25 mg bidmetopro lol 50 mg qdnorvasc 5 mg qdimdur 30 mg qdhydralaz ine 25 mg bidmonitor bp and need to titrate Obstructiv e sleep apnea syndrome 21407110 G47.33 carrying dx added to PMH Panic disorder 392890209 F41.0 see aboveon risperdalp sych to eval Coronary arteriosclerosis 55253087 I25.10 metoprolol 50 mg qdASA 81 mg qdsimvasta tin 20 mg qdcontinue d [id number] AHSAN MCCONNELL NP [facility] [address] [place] [address] 10/14/2022 11:46:11 10/16/2022 16:00:13 Acute kidney injury 44612881 N17.8 ARF on CRF stage 3 at baseline however appear to be stage 4improved with IVFmonitor renal function - check CMP in am x 1avoid nephrotoxi c meds as able; is on diureticsn ephro consult prn Chronic ki dney disease stage 3A 254203719 N18.31 carrying dx of crf stage 3 however appear stage 4 Asthenia 13903710 R53.1 severe deconditio ningPT OT eval and treatmonit or need for increased services in community vs need to transition to LTC Acute hyponatremia 87210 02 E87.1 Dn=432 in hospitalCM P x 1 in am Morbid obesity 850875946 E66.01 dietary to evalChange diet from regular to carb control Chronic co mbined systolic and diastolic heart failure 9641151231 81848 I50.42 bumex 2 mg qam 1 mg qpmspirono lactone 25 mg bidmonitor respirator y and fluid statusmoni tor renal function with recent arf on crf - CMP in am Nonischemi c congestive cardiomyopathy 8417861960 04 I42.0 added to PMHcontinu e current meds Anxiety 53459103 F41.1 fluoxetine 40 mg qdrisperda l 1 mg bid question dx of bipolarto contact PCP for full dx list - re-request edpsych to cassie mccain for behaviors Asthma 264444994 J45.99 8 at baselineal buterol MDI prn Depressive disorder 3548 9007 F33.8 see above Chronic pain 71104746 G8 9.29 gabapentin 400 mg tidoxycodo ne 5 mg q 6 prnmonitor for effect Chronic constipation 236 248472 K59.09 Add senna-s 2 tabs dailybowel protocolMo nitor and adjust as needed Chronic ob structive pulmonary disease 41238699 J41.1 carrying dxadded to PMHmonitor respirator y status Diabetic p eripheral neuropathy 882850292 E11.42 gabapentin 400 mg tidmonitor for effect Diabetes mellitus 821279 09 E11.21 lantus 50 units bidSS insulinmon itor blood glucose and need to wosmghdN6O x 1 in am Mixed hyperlipidemia 267 549215 E78.2 simvastati n 20 mg qdCMP, lipids x 1 in amcontinue d Essential hypertension 52865337 I10 appears to have difficult to control htn current onbumex 2 mg qam 1 mg qpmspirono lactone 25 mg bidmetopro lol 50 mg qdnorvasc 5 mg qdimdur 30 mg qdhydralaz ine 25 mg bidmonitor bp and need to titrate Obstructiv e sleep apnea syndrome 69209283 G47.33 carrying dx added to PMH Panic disorder 548561014 F41.0 see aboveon risperdalp sych to eval Coronary arteriosclerosis 55791711 I25.10 metoprolol 50 mg qdASA 81 mg qdsimvasta tin 20 mg qdcontinue d [id number] Andi Mejia MD [facility] on [address] [place] [address] 10/22/2022 15:37:47 10/24/2022 12:17:55 Chronic kidney disease stage 3A 066413515 N18.31 carrying dx of crf stage 3 however appear stage 4monitor renal functionla bs ordered for tomorrow then q tuesdaysav oid nephrotoxi c meds as ablerefer to nephrowill attempt voiding trial in am with bladder scan q shift and straight cath if > 300cc Asthenia 73614143 R53.1 improving with therapynow able to ambulate up to 100 feet with walker with contact guardmonit or need for increased services in community vs need to transition to LTC Acute hyponatremia 97262 02 E87.1 Wp=015 in [facility] bmp and monitor lytesorder ed for tomorrow Chronic co mbined systolic and diastolic heart failure 0347003123 51689 I50.42 bumex 2 mg qam 1 mg qpmspirono lactone 25 mg bidmonitor respirator y and fluid statusmoni tor renal function with recent arf on crf Essential hypertension 57665722 I10 bumex 2 mg qam 1 mg qpmspirono lactone 25 mg bidmetopro lol 50 mg qdnorvasc 5 mg qdimdur 30 mg qdhydralaz ine 25 mg bidmonitor bp and need to titrate [id number] CHAKA Hawkins [facility] on [address] [place] [address] 10/27/2022 11:28:29 10/29/2022 10:44:01 Acute constipation 935718328 K59.09 xray of abdomen for unknown amount [...] d Chronic ki dney disease stage 3A 365177184 N18.31 bun/creat remains elevated, though lab results as above slightly better on 10/23/22avoi d nephrotoxi c meds as ablerefer to nephro - will notify supervisor pig machine Acute hyponatremia 15307 02 E87.1 Na 139 on 10/23/22labs weekly on Tuesdays Chronic co mbined systolic and diastolic heart failure 8769553238 61829 I50.42 compensate dbumex 2 mg q am, 1 mg q pmspironol actone 25 mg bidmonitor fluid statusmoni tor renal function as above Essential hypertension 63767866 I10 ortho BPs bid x 3 dayswill dc hydralazin e 25 mg bid nowbumex 2 mg q am, 1 mg q pmspironol actone 25 mg bidmetopro lol 50 mg qdnorvasc 5 mg qdimdur 30 mg qdmonitor bp and need to titrate [id number] Andi Mejia MD [facility] on [address] [place] [address] 10/28/2022 12:36:51 10/30/2022 15:40:26 Panic disorder 910829584 F41.0 appears to be experienci ng panic attackvita l stablestar t ativan 0.5 mg q 4 november repeat in 30 min for effectscri pt and e kit script writtento ED for acute decompensa tionof note labs were ordered for today however not drawn [id number] Andi Mejia MD [facility] on [address] [place] [address] 10/31/2022 11:44:27 11/03/2022 16:09:35 Orthostatic hypotension 27373889 I95.1 with therapy stating bp dropped to 80's/40's when standing Essential hypertension 78003627 I10 see abovebumex 2 mg qam 1 mg qpmspirono lactone 25 mg bidmetopro lol 50 mg qd(norvasc 5 mg qd now discontinu ed)imdur 30 mg qdhydralaz ine 25 mg bidmonitor bp and need to titrate Pain of le ft shoulder joint 5704026259 1359689 M25.512 probable underlying OAx ray orderedawa it results Panic disorder 573235088 F41.0 patient now much improved and back to baselinemo nitor need to titrate ativan [id number] EPIFANIO CHEN [facility] on [address] [place] [address] 11/13/2022 13:45:01 11/18/2022 16:00:29 Essential hypertension 24507379 I10 continue bumex 2 mg qam 1 mg qpmspirono lactone 25 mg bidmetopro lol 50 mg qdimdur 30 mg qdhydralaz ine 25 mg bidmonitor bp and need to titrate Chest pain 58933345 R07. 9 see HPIno changes to plan of care despite elevated D dimer and tropnot felt to be pleuriticO rdered prn nitro for chest pain Chronic ki dney disease stage 3A 889329683 N18.31 likely moving to end stage with creat of 103 and bun 3.30encour age PO fluidsavoi d nephrotoxi c meds Anxiety 47469898 F41.1 ativan 0.5 mg q 4 hours PRNcontinu e [id number] CHAKA Hawkins [facility] on [address] [place] [address] 11/17/2022 07:53:39 11/19/2022 11:29:11 Chest pain 35962866 R07.9 no chest pain while in ED last night and EKG reassuring no changes to plan of care despite elevated D dimer and tropnot felt to be pleuriticp rn nitro available for chest pain Essential hypertension 65145883 I10 bp normalbume x 2 mg q am, 1 mg q pmspironol actone 25 mg bidmetopro lol 50 mg qdimdur 30 mg qdmonitor bp and adjust meds prn Chronic ki dney disease stage 3A 044776550 N18.31 likely moving to end stage with creat of 103 and bun 3.30encour age PO fluidsavoi d nephrotoxi c medsmonito r renal functionre jrery to nephro if pt and family agree Pain of le ft shoulder joint 9208074615 4062461 M25.512 is chronicno fracture on xray in ED though does have osteophyte s and joint space narrowingc ontinue tizanidine 4 mg qhs [id number] PEDRO MONAE NP [facility] on [address] [place] [address] 11/18/2022 14:37:50 11/20/2022 14:56:24 Chronic combined systolic and diastolic heart failure 3694411152 93019 I50.42 compensate d bumex 2 mg q am, 1 mg q pm spironolac tone 25 mg bid monitor fluid status monitor renal function Anxiety 62991100 F41.1 ativan 0.5 mg q 4 hours PRNpsych prn [id number] Carolina Dennis MD [facility] on [address] [place] [address] 11/24/2022 17:49:54 11/28/2022 12:00:50 Chronic combined systolic and diastolic heart failure 3939496045 61804 I50.42 Appears euvolemic. Continue metoprolol 50 mg qd, bumex 2 mg q am and 1 mg q pm and spironolac tone 25 mg BIDMay need to decrease diuretics depending on renal functionMo nitor resp. status, fluid status, wts and labs. Anxiety 79762299 F41.1 Continue fluoxetine 30 mg qd and lorazepam 0.5 mg q 4 hrs prn.Monito r mood.Psych following. Essential hypertension 54557302 I10 Last check borderline , but otherwise good.Katherin nue bumex 2 mg q am and 1 mg q pm, spironolac tone 25 mg BID, metoprolol 50 mg qd, and imdur 30 mg qd.BP not being checked regularly, will order for M&F.Monito r BP and labs. Pain of le ft shoulder joint 5002245543 6954668 M25.512 Chronic pain with evidence of moderately severe OA per xray.With allergies to APAP, ibuprofen and morphine.W ill continue oxycodone 5 mg q 6 hrs prn.Will use ice, heat and PT and consider referral for steroid injection. Orthostati c hypotension 65963082 I95.1 Happened one time with rehab.No further episodes.M onitor. Acute constipation 9006 K59.09 Improved on increased bowel regimen.Co ntinue bowel meds as ordered.Mo nitor bowel function. Acute hyponatremia 89225 02 E87.1 No labs since 11/13, will reorder weekly labs. Asthenia 52541075 R53.1 Remains deconditio sissy.Contin ues to need PT/OT for strengthen ing, balance, gait training, safety and function.C ontinue fall precaution s.Monitor for safety.Mon itor for needs in terms of outpt services versus LTC. Morbid obesity 675782606 E66.01 Continue to encourage healthy eating.Mon itor. Asthma 108906645 J45.99 8 As above. Depressive disorder 3548 9007 F33.8 see above Chronic pain 58087206 G8 9.29 With renal failure rec for gabapentin is qd.Will change to gabapentin 600 mg qd and continue tizanidine 4 mg qhs, and oxycodone 5 mg q 6 prnMonitor sxs Chronic ob structive pulmonary disease 32241481 J41.1 Combined obstructiv e and restrictiv e disease per PFTS in past.Katherin nue Flovent 110 mcg 2 puffs BID, and albuterol HFA 2 puffs q 4 hrs prn.Monito r resp status. Diabetic p eripheral neuropathy 528904549 E11.42 As above Diabetes mellitus 213503 09 E11.21 Sugars in good control since here. HgA1C was 8.5 in 3Cont inue lantus 50U BID and SSI.Monito r fingerstic ks TID and HgA1C q 3 months. Mixed hyperlipidemia 267 388980 E78.2 Continue simvastati n 20 mg qdMonitor labs yearly Obstructiv e sleep apnea syndrome 27434243 G47.33 Not on CPAP.Consi jo-ann sleep study. Coronary arteriosclerosis 57504326 I25.10 No recent sxs (recent chest pain not thought to be cardiac.)C ontinue meds as above.F/U with cardio prn. Chronic ki dney disease stage 4 618765616 N18.4 No labs since 11/13.With severely elevated BUN.Will order labs for tomorrow.N eeds renal consult.Wi ll be real balancing act with management of CHF and CKD. [id number] Andi Mejia MD [facility] on [address] [place] [address] 11/26/2022 14:50:28 11/28/2022 12:50:15 Acute kidney injury 72235918 N17.8 ARF on CRF stage 3 at baseline however appear to be stage 4improved with IVFmonitor renal functionav oid nephrotoxi c meds as ablenephro consult Chronic ki dney disease stage 3A 984427710 N18.4 see HPImonitor renal function on bumex and spironolac tone for CHFrepeat bmp at f/u with pcp Asthenia 72248429 R53.1 will need 24 hour supervisio n now in place in community Chronic co mbined systolic and diastolic heart failure 4101457450 65550 I50.42 bumex 2 mg qam 1 mg qpmspirono lactone 25 mg bidmonitor respirator y and fluid statusmoni tor renal function with recent arf on crf Coronary arteriosclerosis 82967655 I25.10 metoprolol 50 mg qdASA 81 mg [...] Name 11/13/2022 1 [place] Lupis Mueller [id number] Lupis Mueller 11/17/2022 1 [place] Lupis Mueller [id number] Lupis Mueller 11/18/2022 1 [place] Lupis Mueller [id number] Lupis Mueller 11/24/2022 1 [place] Lupis Mueller [id number] Lupis Mueller 11/26/2022 1 [place] Lupis Mueller [id number] Lupis Mueller Notes Date Note Type Note [...] She appears very anxious. EPIFANIO CHEN [address] [facility], [address], [place], [address], [facility] 11/13/2022 14:07:45 3 text/html pt seen today for acute telemedicine visit. last night pt called 911 and sent herself out to [facility] stating per nurse that she wasn't [...] to SNF for rehab. CHAKA Hawkins [address], [address], [place], [address], [facility] 11/17/2022 13:34:21 3 text/html seen today for acute rounding visit, DARNELLx3 in the day room in her wheelchair, she is weepy saying my legs don't work anymore , chatted withher for a few minutes and she calmed, lungs clear, ate well at lunch PEDRO MONAE, NINFA [address] [facility], [address], [place], [address], [facility] 11/19/2022 10:31:14 3 text/html This is a 62 yo woman who I am seeing today for a routine MD 60 day reeval rounding visit. She was admitted here on 10/03 after spending several days at [place] [facility] [place]. She had been seen at the [facility] several times in the month prior. [...] since she was admitted to this facility. [facility] concurs and [facility] records show this also. pt is eating 75-100% of all her meals. currently on senna 2 qhs and colace daily. pt is making progress with rehab, walking up to 165 feet. ghotra cath recently removed and pt is voiding normally. Carolina Dennis MD [address] [facility], [address], [place], [address], [facility] 11/24/2022 20:21:29 3 text/html Patient is [...] home. Will require 24/7 supervision with VNA, PIT MANAGER and meals on wheels in place, will be living with daughter. Discussed with SW. Of note labs were ordered yesterday, called labs for result with significant improvement in bun/cre Andi Mejia MD [address] [facility], [address], [place], [address], [facility] 11/26/2022 14:57:47 OBGyn Episode No OBEpisode recorded.
[2024-07-27 13:58] VITALS: BP 128/72; PULSE 82; BMI 52.3
--- NOTE | 2024-07-27 13:58 | A.OFFVIS_ITS ---
Vital Signs 07/27/24 13:58 Height 5 ft 2 in Weight 286 lb BMI 52.3 BP 128/72 Blood Pressure Location Rt brachial Position Sitting Pulse 82 Pulse Source Pulse Oximeter Intake Visit Reasons: T2DM Intake Note: Patient presents today for a follow-up on Type 2 Diabetes Mellitus: Last Diabetic eye exam was on: DUE Last Podiatry exam was on: Does not see a Bacon Skin Lifter Most recent HbA1c: 8.6%, 07/05/2024 Random Glucose- 160 mg/dL, Today Motor Vehicle Escort Driver Required: No Accompanied by: JUVENILE PROBATION OFFICER Allergies ibuprofen Allergy (Intermediate, Verified 07/25/24 08:54) vomiting, itching acetaminophen [Tylenol] Allergy (Unknown, Verified 07/25/24 08:54) Unknown codeine Adverse Reaction (Severe, Verified 07/25/24 08:54) Anaphylaxis morphine Adverse Reaction (Intermediate, Verified 07/25/24 08:54) vomiting vancomycin Adverse Reaction (Intermediate, Verified 07/25/24 08:54) Itching HPI Comments Details: 64 year old female presenting for T2DM Medical history: dCHF, chronic pain, obesity, depression, anxiety Initially diagnosed with T2DM in >10 yrs . Seen one month ago Current regimen Lantus 60u Humalog 4 TID. Administered by nursing, possibly not with all meals-they only come twice daily. Tried to start ozempic at last visit. It was not [facility]. Willing to pay out of pocket for tirzepatide. Previous medications: metformin. Not tolerated POC A1C 06/2024 8.6 last visit was 7.8%. Has gained 20 pounds over the holiday. Denies recent hypoglycemia. CGM download-Avg 208, GMI 8.3% with 66% hyperglycemia, 33% TGT, and 1% low. Reports chronic pain, does endorse painful neuropathy of b/l LE and chronic LE swelling Family history of T2DM in grandparents and parents have Type 2 DM . Sees ophtho + neuropathy, requests podiatry Has nephropathy,Not on RICHY/ARB. Has HLD, on statin. Denies CAD. ROS see HPI PHYSICAL EXAM: GENERAL: Alert and oriented x 3. NAD, obese EYES: EOMI. Anicteric. HENT: Moist mucous membranes. No scleral icterus. No cervical lymphadenopathy. LUNGS: Clear to auscultation bilaterally. CARDIOVASCULAR: Regular rate and rhythm. ABDOMEN: Soft, non-tender +bs EXTREMITIES: No LE edema. Chronic venous stasis changes SKIN: No visible rashes or lesions. NEUROLOGIC: No focal neurological deficits. CN II-XII grossly intact PSYCHIATRIC: Cooperative. Appropriate mood and affect [facility] Medical History (Updated 07/27/24 @ 14:29 by Carmen Alfaro MD) DANIEL (obstructive sleep apnea) COPD (chronic obstructive pulmonary disease) NICM (nonischemic cardiomyopathy) Hypertension Mood disorder Elevated d-dimer FELICIA (acute kidney injury) Abdominal pain Constipation Chronic respiratory failure with hypoxia Stercoral colitis Decubitus ulcer Hypoxia CHF exacerbation MDD (major depressive disorder), recurrent episode, moderate Adjustment disorder with mixed anxiety and depressed mood Panic disorder Cellulitis of right lower extremity Stasis dermatitis of both legs Asthma Hyperglycemia due to diabetes mellitus Congestive heart failure Obesity hypoventilation syndrome CKD (chronic kidney disease) stage 3, GFR 30-59 ml/min Acute on chronic combined systolic and diastolic CHF (congestive heart failure) Morbid obesity Diabetic neuropathy, painful Chronic pain High cholesterol Depression Diabetes Surgical History History of surgery Hx of cholecystectomy Family History Mother HTN (hypertension) Diabetes CAD (coronary artery disease) Father HTN (hypertension) Diabetes CAD (coronary artery disease) Maternal Grandmother CAD (coronary artery disease) Social History Household Members: None Household Members Other:: GRANDSON Housing: Condominium Housing Other:: with chief writer Do you presently have visiting nurse or other home services: Yes ([facility] twice daily) Unable to assess alcohol history related to: Unable to respond and Refusing to respond Alcohol intake: never Comment: 1:1 Patient Tobacco Use Status: Former Tobacco user Tobacco use type: Cigarette Years Smoked: 38 e-Cigarette/Vaping Use: Never Used Second Hand Smoke Exposure: No Substance Use Type: Former Substance User Advance Directives Date on File: 04/30/23 service: No Current occupational status: disabled Current occupation: rt handed Physical Exam Vital Signs: Last Vital Signs Pulse 82 07/27/24 13:58 BP 128/72 07/27/24 13:58 BMI result Body Mass Index 52.3 Results Reviewed Results Reviewed: Laboratory Last Values Glucose (Clinic) 160 mg/dL (60-115) H 07/27/24 14:01 Assessment & Plan Assessment & Plan (1) Hyperglycemia due to diabetes mellitus: Code(s): E11.65 - Type 2 diabetes mellitus with hyperglycemia Category: Medical Plan: Needs to lose weight. Will send zepbound at 2.5mg to [facility]. May be covered without PA for obesity so also sent pen to local pharmacy Will not make additional medicatons at this time to avoid hypoglycemia Will return in four weeks for reassessment Medications: New Zepbound (tirzepatide (weight loss)) 2.5 mg (0.5 mL) subcut QWEEK 2 mL 3RF NS E11.9 - Type 2 diabetes mellitus without complications, E66.9 - Obesity, unspecified Discontinued Ozempic (semaglutide) Discontinued Reason: Doctor's Order 0.25 mg (0.368 mL) subcut QWEEK 4 weeks 3 mL 0RF NS E11.40 - Type 2 diabetes mellitus with diabetic neuropathy, unspecified, Z79.4 - long term care pharmacist (current) use of insulin dulaglutide (Trulicity) Discontinued Reason: Doctor's Order 0.75 mg (0.5 mL) subcut QWEEK 6 mL 3RF E11.65 - Type 2 diabetes mellitus with hyperglycemia, Z79.4 - long term care pharmacist (current) use of insulin Coding Level of Care Code Est Pt Level 4 (83943) Diagnoses Hyperglycemia due to diabetes mellitus E11.65
[2024-07-27 14:07] LABS: Glucose, Whole Blood 160 mg/dL (60-115)
== END 2024-07-27 14:31 | disposition home or self-care (01) ==
PROVIDERS: PCP Internal Medicine; Visit Provider Internal Medicine
DX: E11.65 Type 2 diabetes mellitus with hyperglycemia (principal)

== ENCOUNTER → 2024-07-27 13:45 | Outpatient (BNVA) | payer OTHER, SELFPAY | PROVIDERS: PCP Internal Medicine; Visit Provider Internal Medicine | DX: E11.65 Type 2 diabetes mellitus with hyperglycemia (principal); Z79.4 Long term (current) use of insulin | CPT/HCPCS: 82947; 99212 ==

== ENCOUNTER → 2024-08-24 12:29 | Outpatient (BNVA) | payer OTHER, SELFPAY | PROVIDERS: PCP Internal Medicine; Visit Provider Internal Medicine | DX: E11.65 Type 2 diabetes mellitus with hyperglycemia (principal); Z79.4 Long term (current) use of insulin | CPT/HCPCS: 82947; 99212 ==

== ENCOUNTER 2024-09-28 12:19 | Outpatient (AMB) | payer OTHER, SELFPAY ==
--- NOTE | 2024-09-28 12:41 | MHC.OFFVIS ---
Vital Signs 09/28/24 12:50 Height 5 ft 2 in Weight 282 lb 3.067 oz BMI 51.6 BP 118/76 Blood Pressure Location Rt brachial Position Sitting Pulse 84 Pulse Source Pulse Oximeter Pulse Oximetry (%) 96 Oxygen Delivery Method Room Air Intake Visit Reasons: T2DM Intake Note: Patient presents today for a follow-up on Type 2 Diabetes Mellitus: Last Diabetic eye exam was on: 08/20/2024 Last Podiatry exam was on: Patient does not see a Mold Sprayer Most recent HbA1c: 6.3%, 09/28/2024 Random Glucose- 110 mg/dL, Today Ergonomics Engineer Required: No Accompanied by: Nephew or Niece Allergies ibuprofen Allergy (Intermediate, Verified 09/28/24 12:42) vomiting, itching acetaminophen [Tylenol] Allergy (Unknown, Verified 09/28/24 12:42) Unknown codeine Adverse Reaction (Severe, Verified 09/28/24 12:42) Anaphylaxis morphine Adverse Reaction (Intermediate, Verified 09/28/24 12:42) vomiting vancomycin Adverse Reaction (Intermediate, Verified 09/28/24 12:42) Itching HPI Comments Details: 64 year old female presenting for T2DM Medical history: dCHF, chronic pain, obesity, depression, anxiety Initially diagnosed with T2DM in >10 yrs . Current regimen Lantus 60u Humalog 4 TID. Just completed 4 doses of zepbound 0.25mg weekly x 4. Plan to increase to Zepbound 0.5mg weekly. Patient lost 17 pounds since one month on zepbound. More importantly her A1C is at goal!! Failed Trulicity. ozempic and mounjaro not covered. Tried for one year diet and exercise without any weight loss prior Previous medications: metformin. Not tolerated POC A1C 6.3%. 06/2024 8.6 last visit was 7.8%. Family history of T2DM in grandparents and parents have Type 2 DM . Sees ophtho + neuropathy. Recently saw podiatry Has nephropathy,Not on RICHY/ARB. Has HLD, on statin. Denies CAD. ROS see HPI PHYSICAL EXAM: GENERAL: Alert and oriented x 3. NAD, obese EYES: EOMI. Anicteric. HENT: Moist mucous membranes. No scleral icterus. No cervical lymphadenopathy. LUNGS: Clear to auscultation bilaterally. CARDIOVASCULAR: Regular rate and rhythm. ABDOMEN: Soft, non-tender +bs EXTREMITIES: No LE edema. Chronic venous stasis changes SKIN: No visible rashes or lesions. NEUROLOGIC: No focal neurological deficits. CN II-XII grossly intact PSYCHIATRIC: Cooperative. Appropriate mood and affect [facility] Medical History DANIEL (obstructive sleep apnea) COPD (chronic obstructive pulmonary disease) NICM (nonischemic cardiomyopathy) Hypertension Mood disorder Elevated d-dimer FELICIA (acute kidney injury) Abdominal pain Constipation Chronic respiratory failure with hypoxia Stercoral colitis Decubitus ulcer Hypoxia CHF exacerbation MDD (major depressive disorder), recurrent episode, moderate Adjustment disorder with mixed anxiety and depressed mood Panic disorder Cellulitis of right lower extremity Stasis dermatitis of both legs Asthma Hyperglycemia due to diabetes mellitus Congestive heart failure Obesity hypoventilation syndrome CKD (chronic kidney disease) stage 3, GFR 30-59 ml/min Acute on chronic combined systolic and diastolic CHF (congestive heart failure) Morbid obesity Diabetic neuropathy, painful Chronic pain High cholesterol Depression Diabetes Surgical History History of surgery Hx of cholecystectomy Family History Mother HTN (hypertension) Diabetes CAD (coronary artery disease) Father HTN (hypertension) Diabetes CAD (coronary artery disease) Maternal Grandmother CAD (coronary artery disease) Social History Household Members: None Household Members Other:: GRANDSON Housing: Condominium Housing Other:: with customs examiner Do you [facility] or other [facility] Unable to assess alcohol history related to: Unable to respond and Refusing to respond Alcohol intake: never Comment: 1:1 Patient Tobacco Use Status: Former Tobacco user Tobacco use type: Cigarette Years Smoked: 38 e-Cigarette/Vaping Use: Never Used Second Hand Smoke Exposure: No Substance Use Type: Former Substance User Advance Directives Date on File: 04/30/23 service: No Current occupational status: disabled Current occupation: rt handed Physical Exam Vital Signs: Last Vital Signs Pulse 84 09/28/24 12:50 BP 118/76 09/28/24 12:50 Pulse Ox 96 09/28/24 12:50 Oxygen Delivery Method Room Air 09/28/24 12:50 BMI result Body Mass Index 51.6 Results AMB Hemoglobin A1c AMB Hemoglobin A1c 6.3 % Last Edit by BUBBA Alford on 09/28/24 13:06 Results Reviewed Results Reviewed: Laboratory Last Values Glucose (Clinic) 110 mg/dL (60-115) 09/28/24 12:57 Hgb A1c (Clinic) 6.3 % (4.0-6.0) H 09/28/24 13:03 Assessment & Plan Assessment & Plan (1) Diabetes: Code(s): E11.9 - Type 2 diabetes mellitus without complications Category: Medical Qualifiers: Diabetes mellitus type: type 2 Diabetes mellitus terminal operations manager insulin use: with terminal operations manager use Diabetes mellitus complication status: with hyperglycemia Qualified Code(s): E11.65 - Type 2 diabetes mellitus with hyperglycemia; Z79.4 - termite renewal inspector (current) use of insulin Plan: well controlled with addition of zepbound for GLP coverage. Increase dose to 5mg weekly. Failed trulicity, lifestyle and exercise in past Continu insulin therapy. Return in 3 month for A1C (2) Obesity: Code(s): E66.9 - Obesity, unspecified Category: Medical Plan: Morbid obesity. successfully losing weight on zepbound (3) DANIEL (obstructive sleep apnea): Code(s): G47.33 - Obstructive sleep apnea (adult) (pediatric) Category: Medical Plan: continue GLP Orders: Orders Complete Blood Count Auto Diff 3 Months E11.65 - Type 2 diabetes mellitus with hyperglycemia, Z79.4 - [facility] (current) use of insulin AMB Hemoglobin A1c Today E11.65 - Type 2 diabetes mellitus with hyperglycemia, Z79.4 - [facility] (current) use of insulin Hemoglobin A1c 3 Months E11.65 - Type 2 diabetes mellitus with hyperglycemia, Z79.4 - termite renewal inspector (current) use of insulin Comprehensive Met. Panel 3 Months E11.65 - Type 2 diabetes mellitus with hyperglycemia, Z79.4 - [facility] (current) use of insulin Lipid Panel 3 Months E11.65 - Type 2 diabetes mellitus with hyperglycemia, Z79.4 - [facility] (current) use of insulin Medications: New Zepbound (tirzepatide (weight loss)) 5 mg (0.5 mL) subcut QWEEK 6 mL 3RF NS E11.65 - Type 2 diabetes mellitus with hyperglycemia, G47.33 - Obstructive sleep apnea (adult) (pediatric), Z79.4 - [facility] (current) use of insulin pen needle, diabetic four times daily 1,200 ea 3RF E11.65 - Type 2 diabetes mellitus with hyperglycemia, Z79.4 - termite renewal inspector (current) use of insulin insulin glargine (Lantus Solostar U-100 Insulin) 60 units (0.6 mL) subcut DAILY 45 mL 3RF Refilled FreeStyle Luyc 3 Sensor (blood-glucose sensor) every 14 days 6 ea 3RF NS E11.40 - Type 2 diabetes mellitus with diabetic neuropathy, unspecified, Z79.4 - [facility] (current) use of insulin Discontinued insulin glargine (Lantus U-100 Insulin) Discontinued Reason: Doctor's Order 60 units (0.6 mL) subcut DAILY 45 mL 3RF E11.40 - Type 2 diabetes mellitus with diabetic neuropathy, unspecified Zepbound (tirzepatide (weight loss)) Discontinued Reason: Doctor's Order 2.5 mg (0.5 mL) subcut QWEEK 2 mL 3RF NS E11.9 - Type 2 diabetes mellitus without complications, E66.9 - Obesity, unspecified Zepbound (tirzepatide (weight loss)) for 4 weeks Discontinued Reason: Doctor's Order 2.5 mg (0.5 mL) subcut QWEEK 6 mL 3RF NS E66.9 - Obesity, unspecified Coding Level of Care Code Est Pt Level 4 (61255) Diagnoses Type 2 diabetes mellitus with hyperglycemia, with long-term current use of insulin E11.65; Z79.4 Diabetes mellitus type: type 2 Diabetes mellitus shelter insulin use: with terminal operations manager use Diabetes mellitus complication status: with hyperglycemia Obesity E66.9 DANIEL (obstructive sleep apnea) G47.33
[2024-09-28 12:50] VITALS: BP 118/76; PULSE 84; O2SAT 96; BMI 51.6
[2024-09-28 13:02] LABS: Glucose, Whole Blood 110 mg/dL (60-115)
--- OUTSIDE RECORDS SUMMARY | 2024-09-28 14:23 | XMS_ITS ---
Author Organization [facility] Care Team Providers Care Manager Play Name Role Phone Tavo Huber Unavailable Unavailable Allergies and adverse reactions Code CodeSystem Substance Reaction Severity StartDate Concern Status 7052 RXNORM Morphine Unknown 01/16/2021 active 5640 RXNORM Ibuprofen Unknown 01/16/2021 active 161 RXNORM Acetaminophen Unknown 01/16/2021 active Care Team Name Role Address Phone Organization Dates Tavo Cecile [facility] [address], [address], [place], [address], [place] (Office): : [facility] 01/16/2021 - 02/06/2021 Immunizations Immunization Status Vaccine Details Vaccine Code CodeSystem Date Notes Influenza cancelled Influenza, split virus, trivalent, injectable, contains preservative 141 CVX created date: 01/18/2021 consent date: 01/18/2021 education provided TB 1 Step Mantoux (PPD) completed tuberculin skin test; unspecified formulation lotNumber: [id number] expiry: 09/16/2021 Mfg: [employer] Given 0.1 ml Right Forearm intradermally 98 CVX created date: 01/17/2021 consent date: 01/16/2021 administer ed date: 01/17/2021 TB 2 Step Mantoux Skin Test cancelled tuberculin skin test; unspecified formulation 98 CVX created date: 01/18/2021 consent date: 01/28/2021 PCV13 (Pneumococcal Conjugate)Vacci ne completed pneumococcal conjugate vaccine, 13 valent lotNumber: [id number] expiry: 04/16/2022 Mfg: [employer] Given 0.5 ml Right Deltoid intramuscularly 133 CVX created date: 01/18/2021 consent date: 01/18/2021 administer ed date: 01/21/2021 Mental Status Section Date Assessment Total Score Description 02/06/2021 BIMS 14 cognitively int act CAM 0 No delirium ind icated PHQ-9 01 minimal depress ion 01/23/2021 BIMS 13 cognitively int act CAM 0 No delirium ind icated PHQ-9 01 minimal depress ion Problems Problem # Description Date of onset Resolved Date Code CodeSystem Concern Status 1 CARDIOMYOPATHY IN DISEASES CLASSIFIED ELSEWHERE 01/16/[address] active 2 CHRONIC OBSTRUCTIVE PULMONARY DISEASE, UNSPECIFIED 01/16/[address] active 3 CHRONIC PAIN SYNDROME 01/16/[address] active 4 DIABETES MELLITUS DUE TO UNDERLYING CONDITION WITH DIABETIC NEUROPATHY, UNSPECIFIED 01/16/[address] active 5 DIFFICULTY IN WALKING, NOT ELSEWHERE CLASSIFIED 01/16/[address] active 6 ESSENTIAL (PRIMARY) HYPERTENSION 01/16/[address] active 7 HEART FAILURE, UNSPECIFIED 01/16/[address] active 8 HYPERLIPIDEMIA, UNSPECIFIED 01/16/[address] active 9 MAJOR DEPRESSIVE DISORDER, RECURRENT, UNSPECIFIED 01/16/[address] active 10 MORBID (SEVERE) OBESITY DUE TO EXCESS CALORIES 01/16/[address] active 11 MUSCLE WASTING AND ATROPHY, NOT ELSEWHERE CLASSIFIED, LEFT LOWER LEG 01/16/[address] active 12 MUSCLE WASTING AND ATROPHY, NOT ELSEWHERE CLASSIFIED, RIGHT LOWER LEG 01/16/[address] active 13 OTHER ASTHMA 01/16/[address] acti ve 14 OTHER REDUCED MOBILITY 01/16/[address] active 15 UNSPECIFIED OSTEOARTHRITIS, UNSPECIFIED SITE 01/16/[address] active Reason for Referral No Reasons for Referral Entered Social History Social History Observation Description Start Date End Date Code Code System Current Smoking Status Tobacco smoking consumption unknown 152533132 SNOMED CT Sex Assigned At Female 1960 56302-6 [facility] Vital Signs Code Code System Vitals Name Values and Units Timing Information 61047-5 [facility] Pain Level Value=0.0 02/06/2021 2339-0 [facility] Blood Sugar Duvfz=275.0 Units=mg/dL 02/06/2021 9279-1 [facility] Respiratory Rate Value=18.0 Units=/m in 02/06/2021 8310-5 [facility] Body Temperature Value=97.1 Units=?? F 02/06/2021 96709-7 [facility] O2 % BldC Oximetry Value=91.0 Units= % 02/06/2021 13742-7 [facility] Weight Dmhus=819.8 Units=Lbs 8867-4 [facility] Heart rate Value=68.0 Units=/min 8462-4 [facility] Blood Pressure-Diastolic Value=69 Un its=mmHg 02/03/2021 8480-6 [facility] Blood Pressure-Systolic Tgplr=124 Un its=mmHg 02/03/2021 8302-2 [facility] Height Value=65.0 Units=Inches 01/16/2021
--- OUTSIDE RECORDS SUMMARY | 2024-09-28 14:23 | XMS_ITS ---
Author Organization [facility] Support Name Relationship Address Phone DERICK MERCER Emergency Contact [address] [place] [address] MERCER, DERICK Agent [address] [place] [address] SUBHASH MERCER Guarantor [address] [place] [address] MERCERSUBHASH Bonilla Agent [address] [place] [address] Care Team Providers Care Resistance Brazer Name Role Phone HiramJamarcus bowie Unavailable Unavailable Andriy Dupree Unavailable Allergies and adverse reactions Code CodeSystem Substance Reaction Severity StartDate Concern Status 7052 RXNORM Morphine Unknown 12/13/2021 active 5640 RXNORM Ibuprofen Unknown 12/13/2021 active 161 RXNORM Acetaminophen Unknown 12/13/2021 active Care Team Name Role Address Phone Organization Dates Jamarcus Thomas PCP [address] [address], [facility] (Office): : [facility] 12/13/2021 - 01/02/2022 Andriy Dupree Attending Physician [address] [place] [address], [facility] (Office): : [facility] 12/13/2021 - 01/02/2022 Problems Problem # Description Date of onset Resolved Date Code CodeSystem Concern Status 1 ACUTE ON CHRONIC DIASTOLIC (CONGESTIVE) HEART FAILURE 12/13/[address] active 2 ANXIETY DISORDER, UNSPECIFIED 12/13/[address] active 3 CHRONIC KIDNEY DISEASE, STAGE 3 UNSPECIFIED 12/13/[address] active 4 CHRONIC OBSTRUCTIVE PULMONARY DISEASE, UNSPECIFIED 12/13/[address] active 5 DEPENDENCE ON SUPPLEMENTAL OXYGEN 12/13/[address] active 6 ESSENTIAL (PRIMARY) HYPERTENSION 12/13/[address] active 7 GASTRO-ESOPHAGEAL REFLUX DISEASE WITHOUT ESOPHAGITIS 12/13/[address] active 8 GOUT, UNSPECIFIED 12/13/[address] active 9 HEART FAILURE, UNSPECIFIED 12/13/[address] active 10 HEREDITARY AND IDIOPATHIC NEUROPATHY, UNSPECIFIED 12/13/[address] active 11 HYPERLIPIDEMIA, UNSPECIFIED 12/13/[address] active 12 MAJOR DEPRESSIVE DISORDER, SINGLE EPISODE, UNSPECIFIED 12/13/[address] active 13 OBESITY, UNSPECIFIED 12/13/[address] active 14 OBSTRUCTIVE SLEEP APNEA (ADULT) (PEDIATRIC) 12/13/[address] active 15 TYPE 2 DIABETES MELLITUS WITHOUT COMPLICATIONS 12/13/[address] active 16 UNSPECIFIED ASTHMA, UNCOMPLICATED 12/13/[address] active Reason for Referral No Reasons for Referral Entered Social History Social History Observation Description Start Date End Date Code Code System Current Smoking Status Tobacco smoking consumption unknown 386286918 SNOMED CT Sex Assigned At Female 1960 [address]83[address]-8 [facility] Vital Signs Code Code System Vitals Name Values and Units Timing Information 34051-3 [facility] Pain Level Value=7.0 12/14/2021 9279-1 [facility] Respiratory Rate Value=17.0 Units=/m in 12/14/2021 8462-4 [facility] Blood Pressure-Diastolic Value=66 Un its=mmHg 12/14/2021 8480-6 [facility] Blood Pressure-Systolic Udvcl=261 Un its=mmHg 12/14/2021 8310-5 [facility] Body Temperature Value=97.1 Units=?? F 12/14/2021 8867-4 [facility] Heart rate Value=74.0 Units=/min 96056-6 [facility] O2 % BldC Oximetry Value=96.0 Units= % 12/14/2021 12557-1 [facility] Weight Irvnx=325.0 Units=Lbs
--- OUTSIDE RECORDS SUMMARY | 2024-09-28 14:23 | XMS_ITS | Data Portability ---
Author Organization [facility], Main Office Address [address] [place] [address] Care Team Providers Care Owner/Operator Name Role Phone SISI WATSON Primary Care Provider [facility] ([facility] OTHER Assessment Encounter Date Assessment Date Assessment LastModified by Organization Details LastModified Time 11/17/2022 11/17/2022 11/13/22 wbc 11.9, hgb 9.9, plt 226, na 140, k 4.9, bun 103, creat 3.30, LFTs normal [id number] Not available 11/17/2022 13:30:40 11/24/2022 11/24/2022 11/13/22 [...] Recorded Time Chronic kidney disease stage 3A 982542147 Active 2022 Andi Mejia MD [address], [address], [place], [address], [facility] 3 09:24:07 Morbid obesity 247962963 Active 2022 Andi Mejia MD [address], [address], [place], [address], [facility] 3 09:29:42 Chronic combined systolic and diastolic heart failure 2082957281918 00 Active 2022 Andi Mejia MD [address], [address], [place], [address], [facility] 3 09:29:52 Nonischemic congestive cardiomyopa thy 605477900725 Active 2022 Andi Mejia MD [address], [address], [place], [address], [facility] 3 09:30:08 Anxiety 02662719 Active 2022 Andi Mejia MD [address], [address], [place], [address], [facility] 3 09:30:15 Depressive disorder 80773436 Active 2022 Andi Mejia MD [address], [address], [place], [address], [facility] 3 09:30:19 Asthma 795078609 Active 2022 Andi Mejia MD [address], [address], [place], [address], [facility] 3 09:30:26 Chronic pain 33750478 Active 2022 Andi Mejia MD [address], [address], [place], [address], [facility] 3 09:30:32 Chronic constipatio n 904014551 Active 2022 Andi Mejia MD [address], [address], [place], [address], [facility] 3 09:30:40 Chronic obstructive pulmonary disease 22558027 Active 2022 Andi Mejia MD [address], [address], [place], [address], [facility] 3 09:30:44 Diabetic peripheral neuropathy 034197372 Active 2022 Andi Mejia MD [address], [address], [place], [address], [facility] 3 09:30:56 Diabetes mellitus 84025865 Active 2022 Andi Mejia MD [address], [address], [place], [address], [facility] 3 09:31:01 Mixed hyperlipide matilda 810638332 Active 2022 Andi Mejia MD [address], [address], [place], [address], [facility] 3 09:31:09 Essential hypertensio n 90220418 Active 2022 Andi Mejia MD [address], [address], [place], [address], [facility] 3 09:31:15 Obstructive sleep apnea syndrome 76066477 Active 2022 Andi Mejia MD [address], [address], [place], [address], [facility] 3 09:31:20 Panic disorder 024814352 Active 2022 Andi Mejia MD [address], [address], [place], [address], [facility] 3 09:31:26 Coronary arterioscle rosis 07052910 Active 2022 Andi Mejia MD [address], [address], [place], [address], [facility] 3 09:31:30 Chronic kidney disease stage 4 240724261 Active 2022 Carolina Dennis MD [address], [address], [place], [address], [facility] 3 18:36:56 Acute hyponatremi a 1672695 Active 2022 Carolina Dennis MD [address] [facility], [address], [place], [address], [facility] 3 18:43:11 Asthenia 88882691 Active 2022 Carolina Dennis MD [address], [address], [place], [address], [facility] 3 18:43:57 Problem Notes None recorded. Medical Equipment None Reported. Allergies Allergen ID Allergen Name Allergen Category Reaction Reaction Severity Criticality Documentation Date Start Date Code Code System Note Provider Name and Address Organization Details Recorded Time 66383 ibuprofen medicatio n Not available Not available Not available 10/08/2022 5640 RxNorm Not Available Not Available Not Available 10584 Tylenol medicatio n Not available Not available Not available 10/08/2022 55144 3 RxNorm Not Available Not Available Not Available 75035 morphine medicatio n Not available Not available [...] 124 mm[Hg] 70 mm[Hg] CHAKA Hawkins [address], [address], [place], [address], [facility] 3 07:57:14 Date Recorded Heart rate Respiratory rate Body temperature Oxygen saturation Oxygen saturation in Arterial blood by Pulse oximetry Provider Name and Address Organization Details Last Updated DateTime 3 74 /min 16 /min 97.8 [degF] 96 % 96 % PEDRO MONAE NP [address], [address], [place], [address], [facility] 3 15:33:19 Date Recorded Body weight Body mass index (BMI) Body height Heart rate Respiratory rate Body temperature Oxygen saturation Oxygen saturation in Arterial blood by Pulse oximetry Systolic blood pressure Diastolic blood pressure Provider Name and Address Organization Details Last Updated DateTime 3 988590. 54 g 44.6 kg/m2 157.48 cm 80 /min 18 /min 97.6 [degF] 96 % 96 % 148 mm[Hg] 82 mm[Hg] Carolina Dennis MD [address], [address], [place], [address], [facility] 3 18:00:03 Social History Question Answer Notes LastModified by Organizat ion Details LastModified Time Tobacco Smoking Status Former Smoker quit 1999 30+ pack year hx Andi Mejia MD [address], [address], [place], [address], [facility] 10/08/2022 11:59:39 Do You Have An Advance Directive? Yes Information not available 10/08/2022 What Is Your Level Of Alcohol Consumption? None Information not available 10/08/2022 What Is Your Code Status? Full Code Information not available 10/08/2022 Where Do You Live? Apartment Information not available 11/24/2022 Legal Guardian? No Informati on not available 11/24/2022 Do You Have A Medical Power Of Service Delivery Consultant? Yes Information not available 11/24/2022 What Was [...] Organization Details LastModified Time Mother [email or web address] Not available 2022 09:18:22 Father Diabetes mellitus Not available 2022 09:18:35 Father Hypertensive disorder Not available 2022 09:18:43 Medical History No medical history recorded. Gynecological HistoryNo gynecological history recorded. Obstetrics History GPAL:G 0 P 0 0 0 0 Immunizations Vaccine Type Date Status Note Provider Nam e and Address Organization Details Recorded Time pneumococcal polysaccharide PPV23 7 completed [facility] 09/23/2023 15:30:16 pneumococcal polysaccharide PPV23 2 completed [facility] 09/23/2023 15:31:52 Past Encounters Encounter ID Performer Location Encounter Start Date Encounter Closed Date Diagnosis/Indication Diagnosis SNOMED-CT Code Diagnosis ICD10 Code Diagnosis Note [id number] Andi Mejia MD [facility] on [address] [place] [address] 10/08/2022 09:16:00 10/13/2022 13:18:32 Acute kidney injury 08946734 N17.8 ARF on CRF stage 3 at baseline however appear to be stage 4improved with IVFmonitor renal functionav oid nephrotoxi c meds as ablenephro consult Chronic ki dney disease stage 3A 275319549 N18.31 carrying dx of crf stage 3 however appear stage 4 Asthenia 20634675 R53.1 severe deconditio ningPT OT eval and treatmonit or need for increased services in community vs need to transition to LTC Acute hyponatremia 48902 02 E87.1 Xo=453 in hospitalre peat bmp and monitor lytes Morbid obesity 313192569 E66.01 dietary to eval Chronic co mbined systolic and diastolic heart failure 6222620248 88253 I50.42 bumex 2 mg qam 1 mg qpmspirono lactone 25 mg bidmonitor respirator y and fluid statusmoni tor renal function with recent arf on crf Nonischemi c congestive cardiomyopathy 3217432904 04 I42.0 added to PMHcontinu e current meds Anxiety 38914103 F41.1 fluoxetine 40 mg qdrisperda l 1 mg bid question dx of bipolarto contact PCP for full dx listpsych to evalmonito r for behaviors Asthma 965928123 J45.99 8 at baselineal buterol MDI prn Depressive disorder 3548 9007 F33.8 see above Chronic pain 91663688 G8 9.29 gabapentin 400 mg tidoxycodo ne 5 mg q 6 prnmonitor for effect Chronic constipation 236 286345 K59.09 bowel protocol Chronic ob structive pulmonary disease 74020196 J41.1 carrying dxadded to PMHmonitor respirator y status Diabetic p eripheral neuropathy 539721822 E11.42 gabapentin 400 mg tidmonitor for effect Diabetes mellitus 354071 09 E11.21 lantus 50 units bidSS insulinmon itor blood glucose and need to titrate Mixed hyperlipidemia 267 494963 E78.2 simvastati n 20 mg qdcontinue d Essential hypertension 01193280 I10 appears to have difficult to control htn current onbumex 2 mg qam 1 mg qpmspirono lactone 25 mg bidmetopro lol 50 mg qdnorvasc 5 mg qdimdur 30 mg qdhydralaz ine 25 mg bidmonitor bp and need to titrate Obstructiv e sleep apnea syndrome 69286341 G47.33 carrying dx added to PMH Panic disorder 044014337 F41.0 see aboveon risperdalp sych to eval Coronary arteriosclerosis 39756743 I25.10 metoprolol 50 mg qdASA 81 mg qdsimvasta tin 20 mg qdcontinue d [id number] AHSAN MCCONNELL NP [facility] on [address] [place] [address] 10/14/2022 11:46:11 10/16/2022 16:00:13 Acute kidney injury 17386002 N17.8 ARF on CRF stage 3 at baseline however appear to be stage 4improved with IVFmonitor renal function - check CMP in am x 1avoid nephrotoxi c meds as able; is on diureticsn ephro consult prn Chronic ki dney disease stage 3A 116493005 N18.31 carrying dx of crf stage 3 however appear stage 4 Asthenia 74406433 R53.1 severe deconditio ningPT OT eval and treatmonit or need for increased services in community vs need to transition to LTC Acute hyponatremia 04558 02 E87.1 Hl=408 in hospitalCM P x 1 in am Morbid obesity 719107318 E66.01 dietary to evalChange diet from regular to carb control Chronic co mbined systolic and diastolic heart failure 0986802349 38340 I50.42 bumex 2 mg qam 1 mg qpmspirono lactone 25 mg bidmonitor respirator y and fluid statusmoni tor renal function with recent arf on crf - CMP in am Nonischemi c congestive cardiomyopathy 6407827162 04 I42.0 added to PMHcontinu e current meds Anxiety 46539849 F41.1 fluoxetine 40 mg qdrisperda l 1 mg bid question dx of bipolarto contact PCP for full dx list - re-request edpsych to cassie mccain for behaviors Asthma 890751425 J45.99 8 at baselineal buterol MDI prn Depressive disorder 3548 9007 F33.8 see above Chronic pain 01461007 G8 9.29 gabapentin 400 mg tidoxycodo ne 5 mg q 6 prnmonitor for effect Chronic constipation 236 333189 K59.09 Add senna-s 2 tabs dailybowel protocolMo nitor and adjust as needed Chronic ob structive pulmonary disease 15917987 J41.1 carrying dxadded to PMHmonitor respirator y status Diabetic p eripheral neuropathy 090102055 E11.42 gabapentin 400 mg tidmonitor for effect Diabetes mellitus 435360 09 E11.21 lantus 50 units bidSS insulinmon itor blood glucose and need to adnxfcvF1Q x 1 in am Mixed hyperlipidemia 267 996188 E78.2 simvastati n 20 mg qdCMP, lipids x 1 in amcontinue d Essential hypertension 59574690 I10 appears to have difficult to control htn current onbumex 2 mg qam 1 mg qpmspirono lactone 25 mg bidmetopro lol 50 mg qdnorvasc 5 mg qdimdur 30 mg qdhydralaz ine 25 mg bidmonitor bp and need to titrate Obstructiv e sleep apnea syndrome 93071173 G47.33 carrying dx added to PMH Panic disorder 270360344 F41.0 see aboveon risperdalp sych to eval Coronary arteriosclerosis 69554987 I25.10 metoprolol 50 mg qdASA 81 mg qdsimvasta tin 20 mg qdcontinue d [id number] Andi Mejia MD [facility] on [address] [place] [address] 10/22/2022 15:37:47 10/24/2022 12:17:55 Chronic kidney disease stage 3A 344196347 N18.31 carrying dx of crf stage 3 however appear stage 4monitor renal functionla bs ordered for tomorrow then q tuesdaysav oid nephrotoxi c meds as ablerefer to nephrowill attempt voiding trial in am with bladder scan q shift and straight cath if > 300cc Asthenia 91210134 R53.1 improving with therapynow able to ambulate up to 100 feet with walker with contact guardmonit or need for increased services in community vs need to transition to LTC Acute hyponatremia 18008 02 E87.1 Kj=233 in [facility] bmp and monitor lytesorder ed for tomorrow Chronic co mbined systolic and diastolic heart failure 5428390723 68363 I50.42 bumex 2 mg qam 1 mg qpmspirono lactone 25 mg bidmonitor respirator y and fluid statusmoni tor renal function with recent arf on crf Essential hypertension 51434280 I10 bumex 2 mg qam 1 mg qpmspirono lactone 25 mg bidmetopro lol 50 mg qdnorvasc 5 mg qdimdur 30 mg qdhydralaz ine 25 mg bidmonitor bp and need to titrate [id number] CHAKA Hawkins [facility] on [address] [place] [address] 10/27/2022 11:28:29 10/29/2022 10:44:01 Acute constipation 650774036 K59.09 xray of abdomen for unknown amount [...] d Chronic ki dney disease stage 3A 033528988 N18.31 bun/creat remains elevated, though lab results as above slightly better on 10/23/22avoi d nephrotoxi c meds as ablerefer to nephro - will notify copy chaser Acute hyponatremia 18513 02 E87.1 Na 139 on 10/23/22labs weekly on Tuesdays Chronic co mbined systolic and diastolic heart failure 7621522580 46719 I50.42 compensate dbumex 2 mg q am, 1 mg q pmspironol actone 25 mg bidmonitor fluid statusmoni tor renal function as above Essential hypertension 41395779 I10 ortho BPs bid x 3 dayswill dc hydralazin e 25 mg bid nowbumex 2 mg q am, 1 mg q pmspironol actone 25 mg bidmetopro lol 50 mg qdnorvasc 5 mg qdimdur 30 mg qdmonitor bp and need to titrate [id number] Andi Mejia MD [facility] on [address] [place] [address] 10/28/2022 12:36:51 10/30/2022 15:40:26 Panic disorder 993778530 F41.0 appears to be experienci ng panic attackvita l stablestar t ativan 0.5 mg q 4 may repeat in 30 min for effectscri pt and e kit script writtento ED for acute decompensa tionof note labs were ordered for today however not drawn [id number] Andi Mejia MD [facility] on [address] [place] [address] 10/31/2022 11:44:27 11/03/2022 16:09:35 Orthostatic hypotension 78007240 I95.1 with therapy stating bp dropped to 80's/40's when standing Essential hypertension 30508426 I10 see abovebumex 2 mg qam 1 mg qpmspirono lactone 25 mg bidmetopro lol 50 mg qd(norvasc 5 mg qd now discontinu ed)imdur 30 mg qdhydralaz ine 25 mg bidmonitor bp and need to titrate Pain of le ft shoulder joint 9582396782 0486992 M25.512 probable underlying OAx ray orderedawa it results Panic disorder 070781171 F41.0 patient now much improved and back to baselinemo nitor need to titrate ativan [id number] EPIFANIO CHEN [facility] on [address] [place] [address] 11/13/2022 13:45:01 11/18/2022 16:00:29 Essential hypertension 82490397 I10 continue bumex 2 mg qam 1 mg qpmspirono lactone 25 mg bidmetopro lol 50 mg qdimdur 30 mg qdhydralaz ine 25 mg bidmonitor bp and need to titrate Chest pain 21678464 R07. 9 see HPIno changes to plan of care despite elevated D dimer and tropnot felt to be pleuriticO rdered prn nitro for chest pain Chronic ki dney disease stage 3A 664027126 N18.31 likely moving to end stage with creat of 103 and bun 3.30encour age PO fluidsavoi d nephrotoxi c meds Anxiety 88501924 F41.1 ativan 0.5 mg q 4 hours PRNcontinu e [id number] CHAKA Hawkins [facility] on [address] [place] [address] 11/17/2022 07:53:39 11/19/2022 11:29:11 Chest pain 93813961 R07.9 no chest pain while in ED last night and EKG reassuring no changes to plan of care despite elevated D dimer and tropnot felt to be pleuriticp rn nitro available for chest pain Essential hypertension 54968180 I10 bp normalbume x 2 mg q am, 1 mg q pmspironol actone 25 mg bidmetopro lol 50 mg qdimdur 30 mg qdmonitor bp and adjust meds prn Chronic ki dney disease stage 3A 611308414 N18.31 likely moving to end stage with creat of 103 and bun 3.30encour age PO fluidsavoi d nephrotoxi c medsmonito r renal functionre jerry to nephro if pt and family agree Pain of le ft shoulder joint 9822301807 4531838 M25.512 is chronicno fracture on xray in ED though does have osteophyte s and joint space narrowingc ontinue tizanidine 4 mg qhs [id number] PEDRO MONAE NP [facility] on [address] [place] [address] 11/18/2022 14:37:50 11/20/2022 14:56:24 Chronic combined systolic and diastolic heart failure 5881750191 17515 I50.42 compensate d bumex 2 mg q am, 1 mg q pm spironolac tone 25 mg bid monitor fluid status monitor renal function Anxiety 96297571 F41.1 ativan 0.5 mg q 4 hours PRNpsych prn [id number] Carolina Dennis MD [facility] on [address] [place] [address] 11/24/2022 17:49:54 11/28/2022 12:00:50 Chronic combined systolic and diastolic heart failure 4612436048 34656 I50.42 Appears euvolemic. Continue metoprolol 50 mg qd, bumex 2 mg q am and 1 mg q pm and spironolac tone 25 mg BIDMay need to decrease diuretics depending on renal functionMo nitor resp. status, fluid status, wts and labs. Anxiety 74024200 F41.1 Continue fluoxetine 30 mg qd and lorazepam 0.5 mg q 4 hrs prn.Monito r mood.Psych following. Essential hypertension 64570280 I10 Last check borderline , but otherwise good.Katherin nue bumex 2 mg q am and 1 mg q pm, spironolac tone 25 mg BID, metoprolol 50 mg qd, and imdur 30 mg qd.BP not being checked regularly, will order for M&F.Monito r BP and labs. Pain of le ft shoulder joint 0334517978 0355168 M25.512 Chronic pain with evidence of moderately severe OA per xray.With allergies to APAP, ibuprofen and morphine.W ill continue oxycodone 5 mg q 6 hrs prn.Will use ice, heat and PT and consider referral for steroid injection. Orthostati c hypotension 78866845 I95.1 Happened one time with rehab.No further episodes.M onitor. Acute constipation 9006 K59.09 Improved on increased bowel regimen.Co ntinue bowel meds as ordered.Mo nitor bowel function. Acute hyponatremia 25425 02 E87.1 No labs since 11/13, will reorder weekly labs. Asthenia 02994221 R53.1 Remains deconditio sissy.Contin ues to need PT/OT for strengthen ing, balance, gait training, safety and function.C ontinue fall precaution s.Monitor for safety.Mon itor for needs in terms of outpt services versus LTC. Morbid obesity 087781047 E66.01 Continue to encourage healthy eating.Mon itor. Asthma 358078546 J45.99 8 As above. Depressive disorder 3548 9007 F33.8 see above Chronic pain 81680796 G8 9.29 With renal failure rec for gabapentin is qd.Will change to gabapentin 600 mg qd and continue tizanidine 4 mg qhs, and oxycodone 5 mg q 6 prnMonitor sxs Chronic ob structive pulmonary disease 78037627 J41.1 Combined obstructiv e and restrictiv e disease per PFTS in past.Katherin nue Flovent 110 mcg 2 puffs BID, and albuterol HFA 2 puffs q 4 hrs prn.Monito r resp status. Diabetic p eripheral neuropathy 260222309 E11.42 As above Diabetes mellitus 555400 09 E11.21 Sugars in good control since here. HgA1C was 8.5 in 3Cont inue lantus 50U BID and SSI.Monito r fingerstic ks TID and HgA1C q 3 months. Mixed hyperlipidemia 267 960674 E78.2 Continue simvastati n 20 mg qdMonitor labs yearly Obstructiv e sleep apnea syndrome 78040925 G47.33 Not on CPAP.Consi jo-ann sleep study. Coronary arteriosclerosis 75271575 I25.10 No recent sxs (recent chest pain not thought to be cardiac.)C ontinue meds as above.F/U with cardio prn. Chronic ki dney disease stage 4 548263391 N18.4 No labs since 11/13.With severely elevated BUN.Will order labs for tomorrow.N eeds renal consult.Wi ll be real balancing act with management of CHF and CKD. [id number] Andi Mejia MD [facility] on [address] [place] [address] 11/26/2022 14:50:28 11/28/2022 12:50:15 Acute kidney injury 20757699 N17.8 ARF on CRF stage 3 at baseline however appear to be stage 4improved with IVFmonitor renal functionav oid nephrotoxi c meds as ablenephro consult Chronic ki dney disease stage 3A 340528009 N18.4 see HPImonitor renal function on bumex and spironolac tone for CHFrepeat bmp at f/u with pcp Asthenia 42333419 R53.1 will need 24 hour supervisio n now in place in community Chronic co mbined systolic and diastolic heart failure 5895634634 11475 I50.42 bumex 2 mg qam 1 mg qpmspirono lactone 25 mg bidmonitor respirator y and fluid statusmoni tor renal function with recent arf on crf Coronary arteriosclerosis 63376387 I25.10 metoprolol 50 mg qdASA 81 mg [...] Name 11/13/2022 1 [place] Lupis Mueller [id number] Lupis Mueller 11/17/2022 1 [place] Lupis Mueller [id number] Lupis Mueller 11/18/2022 1 [place] Lupis Mueller [id number] Lupis Mueller 11/24/2022 1 [place] Lupis Mueller [id number] Lupis Mueller 11/26/2022 1 [place] Lupis Mueller [id number] Lupis Mueller Notes Date Note Type Note [...] than yesterday. She appears very anxious. EPIFANIO [address], [address], [place], [address], [facility] 11/13/2022 14:07:45 3 text/html pt seen today for acute telemedicine visit. last night pt called 911 and sent herself out to [facility] ED stating per nurse that she wasn't [...] to SNF for rehab. CHAKA Hawkins [address], [address], [place], [address], [facility] 11/17/2022 13:34:21 3 text/html seen today for acute rounding visit, CAOx3 in the day room in her wheelchair, she is weepy saying my legs don't work anymore , chatted withher for a few minutes and she calmed, lungs clear, ate well at lunch PEDRO MONAE NP [address] [facility], [address], [place], [address], [facility] 11/19/2022 10:31:14 3 text/html This is a 62 yo woman who I am seeing today for a routine MD 60 day reeval rounding visit. She was admitted here on 10/03 after spending several days at the [facility] ED awaiting placement. She had been seen at the [facility] ED several times in the month prior. [...] since she was admitted to this facility. PHLEBOTOMY SUPERVISOR concurs and [facility] records show this also. pt is eating 75-100% of all her meals. currently on senna 2 qhs and colace daily. pt is making progress with rehab, walking up to 165 feet. ghotra cath recently removed and pt is voiding normally. Carolina Dennis MD [address] [facility], [address], [place], [address], [facility] 11/24/2022 20:21:29 3 text/html Patient is [...] home. Will require 24/7 supervision with [employer], SENIOR CONSTRUCTION PROJECT MANAGER and meals on wheels in place, will be living with daughter. Discussed with SW. Of note labs were ordered yesterday, called labs for result with significant improvement in bun/cre Andi Mejia MD [address] [place] [address], [address], [place], [address], [facility] 11/26/2022 14:57:47 OBGyn Episode No OBEpisode recorded.
--- OUTSIDE RECORDS SUMMARY | 2024-09-28 14:23 | XMS_ITS | Encounter Summary ---
Author Organization [facility] Address [id number] [place] [phone] Care Team Providers Care Wall Covering Installer Name Role Phone Tavo Huber MD Primary Care Provider [phone] Reason for Visit * Reason Comments Consult NPV-diabetic foot ca re Encounter Details Date Type Department Care Team (Late st Contact Info) Description 09/27/2024 1:00 PM EDT Consult Orthopedic Surgery - [place] [address] [phone] Nik Tee, DPM [address] [address] Peripheral venous insufficiency (Primary Dx); Dermatophytosis of nail; Pain in toe of right foot; Pain in toe of left foot; Type II diabetes mellitus with peripheral circulatory disorder (CMS/HCC); Diabetic mononeuropathy simplex (CMS/HCC); Acquired hammer toe of right foot; Hammer toe of left foot; Primary osteoarthritis of both feet Social History Tobacco Use Types Packs/Day Years Used Date Smoking Tobacco: Never Assessed Comments Unknown Sex and Gender Information Value Date Recorded Sex Assigned at Not on file Legal Sex Female 4:37 AM EST Gender Identity Not on file Sexual Orientation Not on file documented as of this encounter Last Filed Vital Signs Vital Sign Reading Time Taken Comments Blood Pressure - - Pulse - - Temperature - - Respiratory Rate - - Oxygen Saturation - - Inhaled Oxygen Concentration - - Weight 136 kg (299 lb) 09/27/2024 1:03 PM EDT Height 157.5 cm (5' 2 ) 09/27/2024 1:03 PM EDT Body Mass Index 54.69 09/27/2024 1:03 PM EDT documented in this encounter Ordered Prescriptions Prescription Sig Dispense Quantity Refills Last Filled Start Date End Date diclofenac (Voltaren Arthritis Pain) 1 % topical gel Apply 4 g topically 2 (two) times a day. 240 g 1 09/27/2024 documented in this encounter Progress Notes * Nik Tee DPM - 09/27/2024 1:00 PM EDT Last PCP visit:Referring MD: 03/26/2024 Dr. Nik Clark MD IDENTIFIER: Ervin is a 64 y.o. year old female who presents for consultation. CC: Foot pain HPI: Patient presents today is an uncontrolled type II diabetic has multiple pill complaints swelling and cognitive deficits presents today with her family member present reports she has elongated painfulthickened nails she has thick skin she has been swelling of both feet chronic she states that she numbness burning tingling feet all the time ROS: GENERAL: Pt denies nausea, fever, vomiting, chills, or shortness of breath. Pt in NAD. CARDIOLOGY: pt denies chest pain, palpitations LUNGS: pt denies shortness of breath MUSCULOSKELETAL: See HPI, otherwise no joint pain or swelling, back pain, or muscle pain. SKIN: see HPI, otherwise no lesions, rash or itching NEURO: No persistent headache, weakness or numbness The remainder of the review of systems is noncontributory PAST MEDICAL HISTORY: There is no problem list on file for this patient. Type II diabetic uncontrolled SOCIAL HISTORY: Social History Tobacco Use Smoking status: Not on file Smokeless tobacco: Not on file Substance Use Topics Alcohol use: Not on file ACTIVE MEDICATIONS: No outpatient medications have been marked as taking for the 09/27/24 encounter (Consult) with Nik Tee DPM. ALLERGIES: No Known Allergies PHYSICAL EXAM: Visit Vitals Ht 1.575 m (62 ) Wt 136 kg (299 lb) BMI 54.69 kg/m?? BSA 2.27 m?? PODIATRIC EXAMINATION: GENERAL: Patient appears well nourished, with NAD. VASCULAR: Dorsalis pedis pulses are 0/4 bilaterally and Posterior tibial pulses are 0/4 bilaterally. Capillary filling time within normal limits the digits. No pallor on elevation or rubor on dependency. +4 pitting edema varicosities. Denies rest pain or claudication pain. NEUROLOGICAL: Sharp/dull sensation , protective sensation 5/10 with 5.07 semmes rell bilaterally, vibratory sensation with tuning fork intact to the tibial tuberosity. ORTHOPEDIC: Good muscle strength 5/5 of all flexors and extensors. Dorsi flexion of ankle ,10 degrees, plantar flexion WNL. No muscle atrophy. DERMATOLOGICAL:. Toenails: Left Toenail(s) 1-5: Crumbling upon debridement, subungual debris, discoloration, dystrophy, elongation, mycotic appearance, onychomycosis, pain and thickening. Right Toenail(s) 1-5: Crumbling upon debridement, subungual debris, discoloration, dystrophy, elongation, mycotic appearance, onychomycosis, pain and thickening. Annular scaling bilateral feet moccasin distribution Skin thinning texture shiny appearance diffuse hyperpigmentation bilaterally pedal hair decreased BIOMECHANICS: Ankle ROM WNL, STJ ROM wnl, MTJ ROM wnl, 1st MPJ ROM wnl. Contractures to the 5 bilateral IMAGING: IMPRESSION: 1. Peripheral venous insufficiency 2. Dermatophytosis of nail 3. Pain in toe of right foot 4. Pain in toe of left foot 5. Type II diabetes mellitus with peripheral circulatory disorder (CMS/HCC) 6. Diabetic mononeuropathy simplex (CMS/HCC) 7. Acquired hammer toe of right foot 8. Hammer toe of left foot 9. Primary osteoarthritis of both feet PLAN: Pt was seen and examined, history reviewed. Compression stockings prescribed Diabetic shoes and inserts prescribed Discussed with patient regarding proper glucose control, exercise, and diet. Explained to patient proper shoe gear, and importance of daily foot checks. I reviewed neuropathy and why it occurs in diabetics. I educated the patient on proper blood sugar control and the importance of an HgBA1c of less than 7.0%. I reviewed the signs and symptoms of neuropathy with the patient Pt to return for another evaluation in 3 months. Debridement of mycotic toenails 6-10: Verbal informed consent was obtained from the patient. Greater than 6 nails were aseptically debrided in thickness and length with nail nippers Nik Tee DPM documented in this encounter Plan of Treatment Not on file documented as of this encounter Visit Diagnoses Diagnosis Peripheral venous insufficiency- Primary Unspecified venous (peripheral) insufficiency Dermatophytosis of nail Pain in toe of right foot Pain in soft tissues of limb Pain in toe of left foot Pain in soft tissues of limb Type II diabetes mellitus with peripheral circulatory disorder (CMS/HCC) Type II or unspecified type diabetes mellitus with peripheral circulatory disorders, not stated as uncontrolled Diabetic mononeuropathy simplex (CMS/HCC) Type II or unspecified type diabetes mellitus with neurological manifestations, not stated as uncontrolled Acquired hammer toe of right foot Hammer toe of left foot Primary osteoarthritis of both feet documented in this encounter Care Teams Wall Covering Installer Relationship Specialty Start Date End Date Tavo Huber MD [address] [place] [address] Dr Anjelica MA PCP - General Internal Medicine 10/09/21 documented as of this encounter
--- OUTSIDE RECORDS SUMMARY | 2024-09-28 14:23 | XMS_ITS | Clinical Summary ---
Author Organization [facility] Address [address] [place] [address] Phone Care Team Providers Care Bunch Trimmer Mold Name Role Phone Tavo Huber MD Primary Care Provider [phone] Allergies Active Allergy Reactions Criticality Noted Date Comments Morphine 09/21/2020 Ibuprofen 09/21/2020 Acetaminophen 09/21/2020 Medications Aspirin Low Dose 81 MG EC tablet Take 81 mg by mouth 1 (one) time each day 09/16/2020 Active FLUoxetine (PROzac) 40 MG capsule Take 1 capsule by mouth 1 (one) time each day 09/05/2020 Active gabapentin (NEURONTIN) 400 MG capsule Take 1 capsule by mouth in the morning and 1 capsule in the evening. 800mg at bedtime. 09/17/2020 Active HumaLOG 100 UNIT/ML injection 09/17/2020 Active Lantus 100 UNIT/ML injection Inject 50 Units under the skin 2 (two) times a day 08/23/2020 Active isosorbide mononitrate (IMDUR) 30 MG 24 hr tablet Take 1 tablet by mouth 1 (one) time each day 09/15/2020 Active simvastatin (ZOCOR) 20 MG tablet Take 1 tablet by mouth at bed time 07/27/2020 Active tiZANidine (ZANAFLEX) 4 MG tablet Take 1 tablet by mouth at bed time 09/16/2020 Active metoprolol succinate XL (TOPROL-XL) 50 MG 24 hr tablet Take 1 tablet by mouth daily Active amLODIPine (NORVASC) 10 MG tablet Take 1 tablet by mouth 1 (one) time each day 12/24/2020 Active hydrALAZINE 25 MG tablet Take 25 mg by mouth in the morning and 25 mg in the evening. Active risperiDONE (RisperDAL) 1 MG tablet Take 1 mg by mouth in the morning and 1 mg in the evening. Active cloNIDine (CATAPRES) 0.1 MG tablet Take 0.1 mg by mouth in the morning and 0.1 mg at noon and 0.1 mg in the evening. Active spironolactone (ALDACTONE) 25 MG tablet Take 25 mg by mouth 1 (one) time each day Active cholecalciferol (VITAMIN D-3) 25 MCG (1000 UT) tablet Take 1,000 Units by mouth 1 (one) time each day Active docusate sodium (COLACE) 100 MG capsule Take 100 mg by mouth 1 (one) time each day Active haloperidol (HALDOL) 2 MG tablet Take 2 mg by mouth at bed time Active bumetanide (BUMEX) 1 MG tablet TAKE 2MG IN THE MORNING AND 1MG IN THE EVENING 180 tablet 1 10/27/2022 Active Active Problems Problem Noted Date Diagnosed Date Other asthma 01/16/2021 Other reduced mobility 01/16/2021 Renal insufficiency 09/21/2020 Stage 3a chronic kidney disease 09/21/2020 Type 2 diabetes mellitus wit h diabetic chronic kidney disease 09/21/2020 Hypertension 09/21/2020 Hyperkalemia 09/21/2020 Resolved Problems Problem Noted Date Diagnosed Date Resolved Date Gastroesophageal reflux disease 05/28/2022 12/17/2022 Pancreatitis 05/28/2022 12/17/2022 Cardiomyopathy in diseases c lassified elsewhere 01/16/2021 12/17/2022 Chronic obstructive pulmonary disease 01/16/2021 12/17/2022 Chronic pain syndrome 01/16/20212022 Heart failure 01/16/2021 12/17/2022 Difficulty in walking 01/16/20212022 Hyperlipidemia 01/16/2021 12/17/2022 Osteoarthritis 01/16/2021 12/17/2022 Recurrent major depressive disorder 01/16/2021 12/17/2022 Severe obesity 01/16/2021 12/17/2022 Type 2 diabetes mellitus 01/16/2021 Immunizations Name Administration Dates Next Due Pneumococcal Conjugate 13-Valent 01/21/2021 Pneumococcal Polysaccharide 12/16/2021, 9,11/17/2016,07/09/2008 Family History Medical History Relation Comments Diabetes Father Hypertension Father Diabetes Mother Hypertension Mother Relation Status Comments Father Mother Social History Tobacco Use Types Packs/Day Years Used Date Smoking Tobacco: Never Smokeless Tobacco: Never Alcohol Use Standard Drinks/Week Comments Never 0 (1 standard drink = 0.6 oz pur e alcohol) Comments Unknown Sex and Gender Information Value Date Recorded Sex Assigned at Not on file Legal Sex Female 4:58 PM EST Gender Identity Not on file Sexual Orientation Not on file Last Filed Vital Signs Vital Sign Reading Time Taken Comments Blood Pressure 132/90 12/17/2022 4:33 PM EDT Pulse 82 12/17/2022 4:33 PM EDT Temperature - - Respiratory Rate - - Oxygen Saturation - - Inhaled Oxygen Concentration - - Weight 124 kg (273 lb) 05/28/2022 3:37 PM EST Height - - Body Mass Index - - Plan of Treatment Health Maintenance Due Date Last Done Comments Breast Cancer Screening 1961 Colorectal Cancer Screening: Annual FOBT 2010 Colorectal Cancer Screening: Colonoscopy 2010 Colorectal Cancer Screening: Sigmoidoscopy 2010 Diabetes: Hemoglobin A1C 09/21/2020 Diabetes: Ophthalmology Exam 09/21/2020 Diabetes: Pedal Pulse Checked 09/21/2020 Diabetes: Sensory Foot Exam 09/21/2020 Diabetes: Visual Foot Exam 09/21/2020 Influenza Vaccine (#1) 2024 Pneumococcal Vaccine: Pediatrics (0 to 5 Years) and At-Risk Patients (6 to 64 Years) (4 of 4 - PPSV23 or PCV20) 12/16/2026 12/16/2021, 01/21/2021, 09/09/2018, Additional history exists Hepatitis B Vaccine Aged Out No longe r eligible based on patient's age to [place] [id number] [place] MD Care Teams Bunch Trimmer Mold Relationship Specialty Start Date End Date Tavo Huber MD [address] [place] [address] [address] [place] PCP - General 07/30/20
--- OUTSIDE RECORDS SUMMARY | 2024-09-28 14:23 | XMS_ITS ---
Author Organization [facility] Care Team Providers Care Jacker Feeder Name Role Phone Willi, Zenaida Oden Unavailable Unavailable Yaquelin Salas Unavailable Unavailable Odalis Graham Unavailable Unavailable Allergies and adverse reactions Code CodeSystem Substance Reaction Severity StartDate Concern Status 89164 RXNORM Vancomycin Unknown 09/28/2023 active 7052 RXNORM Morphine Unknown 09/28/2023 active 2670 RXNORM Codeine Unknown 09/28/2023 active 161 RXNORM Acetaminophen Unknown 09/28/2023 active Care Team Name Role Address Phone Organization Dates Zenaida Márquez PCP [address] [facility] [address], [place], [address], [facility] (Office): : [facility] 09/28/2023 - 09/30/2023 Yaquelin Salas Attending Physician [place], [facility] 09/28/2023 - 09/30/2023 Odalis Graham Attending Physician [place], [facility] 09/28/2023 - 09/30/2023 Medications Section Medication Name Status Code CodeSystem Dose Route Frequency Admin Type Sig Text Start Date End Date DULoxetine HCl Oral Capsule Delayed Release Particles 30 MG active 918297 RXNORM 1 capsul e Oral one time a day Routine Give 1 capsul e by mouth one time a day for depres pietro 2023 - Glutose 45 Gel 40 % active 1078352 RXNORM 1 dose Oral as needed PRN Give 1 dose by mouth as needed for hypogl ycemic protoc ol Give one tube PO/SL if FSBS <50 and able to swallo w PRN. Rechec k FSBS 10 minute s after admini strati on and call provid er. 2023 - GlucaGen HypoKit Solution Reconstituted 1 MG active 505026 RXNORM 1 mg Subcuta neous as needed PRN Inject 1 mg subcut aneous ly as needed for hypogl ycemic protoc ol Specia l instru ctions : Glucag en 1 mg hypoki t subcut aneous if FSBS below 60 and unable to swallo w. R echeck FSBS in 10 minute s and update provid er. 2023 - Gabapentin Oral Capsule 400 MG active 667160 RXNORM 1 capsul e Oral two times a day Routine Give 1 capsul e by mouth two times a day for neurop athy 2023 - Bumetanide Oral Tablet 1 MG active 856587 RXNORM 0.5 tablet Oral at bedtime Routine Give 0.5 tablet by mouth at bedtim e for edema hold for SBP <90 2023 - cloNIDine HCl Oral Tablet 0.1 MG active 330957 RXNORM 1 tablet Oral as needed PRN Give 1 tablet by mouth every 8 hours as needed for anxiet y, panic hold for SBP <90 2023 - Prazosin HCl Oral Capsule 1 MG active 489628 RXNORM 1 capsul e Oral at bedtime Routine Give 1 capsul e by mouth at bedtim e for HTN 2023 - clonazePAM Oral Tablet 0.5 MG active 879732 RXNORM 1 tablet Oral every morning and at bedtime Routine Give 1 tablet by mouth every mornin g and at bedtim e for anxiet y 2023 - hydrALAZINE HCl Oral Tablet 25 MG active 845577 RXNORM 1 tablet Oral every morning and at bedtime Routine Give 1 tablet by mouth every mornin g and at bedtim e for htn hold for SBP <90 2023 - traZODone HCl Oral Tablet 50 MG active 656550 RXNORM 1 tablet Oral at bedtime Routine Give 1 tablet by mouth at bedtim e for depres pietro 2023 - risperiDONE Oral Tablet 0.5 MG active 771298 RXNORM 1 tablet Oral every morning and at bedtime Routine Give 1 tablet by mouth every mornin g and at bedtim e for psycho sis 2023 - Simvastatin Oral Tablet 20 MG active 616881 RXNORM 1 tablet Oral at bedtime Routine Give 1 tablet by mouth at bedtim e for HLD 2023 - Insulin Lispro Injection Solution 100 UNIT/ML active 078688 RXNORM n/a n/a Subcuta neous before meals and at bedtime Routine Inject as per slidin g scale: if 151 - 200 = 2 units; 201 - 250 = 4 units; 251 - 300 = 6 units; 301 - 350 = 8 units; 351 - 400 = 10 units for bs <60 or >350 call md, subcut aneous ly before meals and at bedtim e for dm 2023 - Nystatin External Powder 058712 UNIT/GM active 410655 RXNORM n/a n/a Topical as needed PRN Apply to groin, breast s topica lly every 12 hours as needed for rash 2023 - Isosorbide Mononitrate ER Oral Tablet Extended Release 24 Hour 30 MG active 039060 RXNORM 1 tablet Oral one time a day Routine Give 1 tablet by mouth one time a day for angina 2023 - Meclizine HCl Oral Tablet 25 MG active 526554 RXNORM 1 tablet Oral as needed PRN Give 1 tablet by mouth every 8 hours as needed for vertig o 2023 - Flovent HFA Inhalation Aerosol 110 MCG/ACT active 610473 RXNORM 2 puff Inhalat ion every morning and at bedtime Routine 2 puff inhale orally every mornin g and at bedtim e for copd 2023 - Insulin Glargine Subcutaneous Solution 100 UNIT/ML active 513125 RXNORM 18 unit Subcuta neous every morning and at bedtime Routine Inject 18 unit subcut aneous ly every mornin g and at bedtim e for dm 2023 - Aspirin 81 Oral Tablet Delayed Release active 1 tablet Oral one time a day Routine Give 1 tablet by mouth one time a day for CAD 2023 - Metoprolol Succinate ER Oral Tablet Extended Release 24 Hour 50 MG active 415023 RXNORM 1 tablet Oral one time a day Routine Give 1 tablet by mouth one time a day for HTN 2023 - Mental Status Section Date Assessment Total Score Description 09/30/2023 BIMS 15 cognitively int act CAM 2 Delirium indica valeria 09/30/2023 BIMS 15 cognitively int act CAM 2 Delirium indica valeria Problems Problem # Description Date of onset Resolved Date Code CodeSystem Concern Status 1 ACUTE AND CHRONIC RESPIRATORY FAILURE WITH HYPOXIA 09/29/[address] active 2 CHRONIC OBSTRUCTIVE PULMONARY DISEASE WITH (ACUTE) EXACERBATION 09/29/[address] active 3 CHRONIC SYSTOLIC (CONGESTIVE) HEART FAILURE 09/29/[address] active 4 MAJOR DEPRESSIVE DISORDER, SINGLE EPISODE, UNSPECIFIED 09/29/[address] active 5 OTHER ACUTE KIDNEY FAILURE 09/29/[address] active 6 OTHER ASTHMA 09/29/[address] active 7 OTHER SPECIFIED NONINFECTIVE GASTROENTERITIS AND COLITIS 09/29/[address] active 8 PANIC DISORDER [EPISODIC PAROXYSMAL ANXIETY] 09/29/[address] active 9 PRESSURE ULCER OF UNSPECIFIED SITE, UNSPECIFIED STAGE 09/29/[address] active 10 TYPE 2 DIABETES MELLITUS WITHOUT COMPLICATIONS 09/29/[address] active 11 UNSPECIFIED ABDOMINAL PAIN 09/29/[address] active 12 UNSPECIFIED ABNORMALITIES OF GAIT AND MOBILITY 09/29/[address] active 13 ACUTE KIDNEY FAILURE, UNSPECIFIED 09/28/[address] active 14 CHEST PAIN, UNSPECIFIED 09/28/[address] active 15 MORBID (SEVERE) OBESITY DUE TO EXCESS CALORIES 09/28/[address] active 16 MUSCLE WEAKNESS (GENERALIZED) 09/28/[address] active 17 UNSPECIFIED MOOD [AFFECTIVE] DISORDER 09/28/[address] active Reason for Referral No Reasons for Referral Entered Social History Social History Observation Description Start Date End Date Code Code System Current Smoking Status Tobacco smoking consumption unknown 282618546 SNOMED CT Sex Assigned At Female 1960 [address]25[address]-6 [facility] Vital Signs Code Code System Vitals Name Values and Units Timing Information 2339-0 [facility] Blood Sugar Ekuvr=624.0 Units=mg/dL 09/30/2023 8462-4 [facility] Blood Pressure-Diastolic Value=60 Un its=mmHg 09/30/2023 8480-6 [facility] Blood Pressure-Systolic Bmmfd=012 Un its=mmHg 09/30/2023 44979-4 [facility] Pain Level Value=0.0 09/30/2023 9279-1 [facility] Respiratory Rate Value=18.0 Units=/m in 09/30/2023 8310-5 [facility] Body Temperature Value=97.3 Units=?? F 09/30/2023 8867-4 [facility] Heart rate Value=85.0 Units=/min 15581-7 [facility] O2 % dC Oximetry Value=94.0 Units= % 09/30/2023 55433-0 [facility] Weight Xyybo=794.0 Units=Lbs 06/2024 8302-2 [facility] Height Value=62.5 Units=Inches 09/28/2023
--- OUTSIDE RECORDS SUMMARY | 2024-09-28 14:23 | XMS_ITS | Clinical Summary ---
Author Organization [address] [facility] Address [address] [place] [address] Phone Care Team Providers Care Repairer Wood Furniture Name Role Phone Tavo Huber MD Primary Care Provider [phone] Allergies No known active allergies Medications diclofenac (Voltaren Arthritis Pain) 1 % topical gel Apply 4 g topically 2 (two) times a day. 240 g 1 5 11/27/19 25 Active Encounters Date Type Department Care Team Description 09/27/2024 1:00 PM EDT Consult Orthopedic Surgery - [place] [address] [phone] Nik Tee, DPM Peripheral venous insufficiency (Primary Dx); Dermatophytosis of nail; Pain in toe of right foot; Pain in toe of left foot; Type II diabetes mellitus with peripheral circulatory disorder (CMS/HCC); Diabetic mononeuropathy simplex (CMS/HCC); Acquired hammer toe of right foot; Hammer toe of left foot; Primary osteoarthritis of both feet from Last 3 Months Social History Tobacco Use Types Packs/Day Years [...] Mass Index 54.69 09/27/2024 1:03 PM EDT Plan of Treatment Health Maintenance Due Date Last Done Comments Breast Cancer Screening 1961 Diabetes: Annual GFR (Glomerular Filtration Rate) 1961 Diabetes: Annual Foot Exam 1971 Diabetes: Annual Retina Eye Exam 1971 DTaP,Tdap,and Td Vaccines (1 - Tdap) 1980 Cervical Cancer Screening: Pap Smear 1982 Zoster Vaccines (1 of 2) 2011 RSV Immunization Patients 60+ Years Old (1 - Risk 60-74 years 1-dose series) 2021 Cholesterol Screening (Lipid Panel) 07/02/2022 Colorectal Cancer Screening: Colonoscopy 07/02/2022 Depression Screening 07/02/2022 HIV Screening 07/02/2022 Hepatitis C Screening 07/02/2022 Social Influencers of Health Screening 07/02/2022 COVID-19 Vaccine ( season) 2024 Influenza Vaccine (#1) 2024 , 12/15/2021, 06/03/2018, Additional history exists Diabetes: Annual Urine Albumin-Creatinine Ratio (uACR) 09/27/2024 Diabetes: Blood Sugar Control Test (HGBA1C) 09/27/2024 Hypertension/CHF/CAD Annual BMP Blood Test 09/27/2024 Pneumococcal Vaccine: 50+ Years (3 of 3 - PCV20 or PCV21) 12/16/2026 12/16/2021, 01/21/2021, 09/09/2018, Additional history exists Pneumococcal Vaccine: Pediatrics (0 to 5 Years) and At-Risk Patients (6 to 64 Years) (3 of 3 - PCV20 or PCV21) 12/16/2026 12/16/2021, 01/21/2021, 09/09/2018, Additional history exists HIB Vaccines Aged Out No longer eligi ble based on patient's age to complete this topic HPV Vaccines Aged Out No longer eligi ble based on patient's age to complete this topic Hepatitis A Vaccines Aged Out No long er eligible based on patient's age to complete this topic Hepatitis B Vaccines Aged Out No long er eligible based on patient's age to complete this topic IPV Vaccines Aged Out No longer eligi ble based on patient's age to complete this topic MMR Vaccines Aged Out No longer eligi ble based on patient's age to complete this topic Meningococcal ACWY Vaccine Aged Out N o longer eligible based on patient's age to complete this topic Meningococcal B Vacine Aged Out No lo nger eligible based on patient's age to complete this topic RSV Immunization Patients Under 20 months Aged Out No longer eligible based on patient's age to complete this topic Varicella Vaccines Aged Out No longer eligible based on patient's age to complete this topic Insurance [facility] [employer] PLAN Advance Directives Documents on File Type Date Recorded Patient Machine Feller Expl anation Health Care Decision (hx) 02/25/2022 AD GARCIA DIRECTIVE Health Care Decision (hx) 10/16/2020 AD GARCIA DIRECTIVE Health Care Decision (hx) 10/14/2020 AD GARCIA DIRECTIVE Health Care Decision (hx) 10/14/2020 AD GARCIA DIRECTIVE Health Care Decision (hx) 10/14/2020 AD GARCIA DIRECTIVE Health Care Decision (hx) 10/14/2020 AD GARCIA DIRECTIVE Health Care Decision (hx) 10/14/2020 AD GARCIA DIRECTIVE Health Care Decision (hx) 10/14/2020 AD GARCIA DIRECTIVE Health Care Decision (hx) 10/14/2020 AD GARCIA DIRECTIVE Health Care Decision (hx) 10/14/2020 AD GARCIA DIRECTIVE Health Care Decision (hx) 10/14/2020 AD GARCIA DIRECTIVE Health Care Decision (hx) 10/14/2020 AD GARCIA DIRECTIVE Health Care Decision (hx) 10/14/2020 AD GARCIA DIRECTIVE Care Teams Repairer Wood Furniture Relationship Specialty Start Date End Date Tavo Huber MD [address] [place] [address] Dr Anjelica [place] PCP - General Internal Medicine 10/09/21
== END 2024-09-28 13:37 | disposition home or self-care (01) ==
LOC: HO.ENCR 12:20
PROVIDERS: PCP Internal Medicine; Visit Provider Internal Medicine
DX: E11.65 Type 2 diabetes mellitus with hyperglycemia (principal); Z79.4 Long term (current) use of insulin; E66.9 Obesity, unspecified; G47.33 Obstructive sleep apnea (adult) (pediatric)

== ENCOUNTER → 2024-09-28 12:19 | Outpatient (BNVA) | payer OTHER, SELFPAY | PROVIDERS: PCP Internal Medicine; Visit Provider Internal Medicine | DX: E11.65 Type 2 diabetes mellitus with hyperglycemia (principal); E66.9 Obesity, unspecified; G47.33 Obstructive sleep apnea (adult) (pediatric); Z79.4 Long term (current) use of insulin; Z68.43 Body mass index [BMI] 50.0-59.9, adult | CPT/HCPCS: 82947; 83036; 99212 ==

== ENCOUNTER 2024-11-21 13:55 | Outpatient (AMB) | payer OTHER, SELFPAY ==
--- NOTE | 2024-11-21 14:01 | A.OFFPC_ITS ---
Vital Signs 11/21/24 14:14 Height 5 ft 2 in Weight 277 lb BMI 50.7 BP 128/70 Respiration 16 Pulse 80 Pulse Source Pulse Oximeter Temp 98.0 F Temp Source Oral Pulse Oximetry (%) 99 Oxygen Delivery Method Room Air Intake Visit Reasons: PRE OP Dr Arnav Patel - see comments Legal Receptionist Required: No Accompanied by: Self / Same As Patient Allergies ibuprofen Allergy (Intermediate, Verified 11/21/24 14:49) vomiting, itching acetaminophen [Tylenol] Allergy (Unknown, Verified 11/21/24 14:49) Unknown codeine Adverse Reaction (Severe, Verified 11/21/24 14:49) Anaphylaxis morphine Adverse Reaction (Intermediate, Verified 11/21/24 14:49) vomiting vancomycin Adverse Reaction (Intermediate, Verified 11/21/24 14:49) Itching Medication List - Last Reconciled 11/21/24 by Cristhian Levy MD [ADULT PULL UP XL 4 per day NS] Alcohol Prep Pads (alcohol swabs) 1 pad topical QID NS aspirin 81 mg PO DAILY BD Insulin Syringe (half unit) (insulin syr/ndl U100 half dionna) As directed NS benzonatate 200 mg PO TID PRN blood-glucose meter (FreeStyle Lite Meter kit) As directed checks POC 4 X/day [Chux 3x/day] clonidine HCl 0.1 mg See Protocol PO TID PRN Comfort EZ Pen [place] (pen needle, diabetic) 4 times daily NS [Commode bags 4x/day NS] duloxetine 30 mg PO QAM fluticasone propionate 110 mcg/actuation (Flovent HFA) 2 puffs inhalation BID FreeStyle Lancets (lancets) four times daily NS FreeStyle Lucy 3 [place] (blood-glucose,spooling machine operator,cont) As directed NS FreeStyle Lucy 3 Sensor (blood-glucose sensor) every 14 days NS FreeStyle Lite Strips (blood sugar diagnostic) four times daily NS furosemide (Lasix) 40 mg PO BID gabapentin 400 mg PO BID@0900,1500 hydralazine 25 mg See Protocol PO BID insulin glargine (Lantus Solostar U-100 Insulin) 60 units (0.6 mL) subcut DAILY insulin lispro (Humalog U-100 Insulin) 4 units See Protocol subcut TID insulin syringe-needle U-100 (BD Insulin Syringe Ultra-Fine) insulin syringe-needle U-100 (BD Insulin Syringe Ultra-Fine) Four times daily isosorbide mononitrate ER 60 mg (2 x 30 mg) PO DAILY linaclotide (Linzess) 145 mcg PO DAILY lorazepam 0.5 mg PO TID PRN meclizine 25 mg PO TID PRN metoprolol succinate ER 50 mg PO DAILY [nitrile gloves 4x/day] nystatin 1 appl See Protocol topical BID PRN nystatin 1 appl topical TID 1 week pantoprazole 20 mg PO BEDTIME 90 days pen needle, diabetic (Comfort EZ Pen [place]) four times daily pen needle, diabetic four times daily prazosin 1 mg PO BEDTIME [pressure relief cushion daily] sertraline 75 mg (3 x 25 mg) PO DAILY simvastatin 20 mg PO BEDTIME trazodone 100 mg (2 x 50 mg) PO BEDTIME Zepbound (tirzepatide (weight loss)) 5 mg (0.5 mL) subcut QWEEK NS Tobacco use date assessed: 11/21/24 Dental Screening Dental Screen Date: 11/21/24 Did you have a dental visit in the last 12 months?: No Did you have a dental problem in the last 6 months where you did not have access to dental care?: No Was dental information given to patient?: Patient declined (Does not have a dentist) HPI PRE OP Dr Arnav Patel - see comments HPI Details 64-year-old female presents to the offic e requesting a preop clearance. Patient is having bilateral cataract extraction under MAC. She has history of hypertension, obesity, COPD and diabetes. Her last blood sugar was well controlled. [facility] Medical History (Updated 11/21/24 @ 14:41 by Cristhian Levy MD) Cataracts, bilateral DANIEL (obstructive sleep apnea) COPD (chronic obstructive pulmonary disease) NICM (nonischemic cardiomyopathy) Hypertension Mood disorder Elevated d-dimer FELICIA (acute kidney injury) Abdominal pain Constipation Chronic respiratory failure with hypoxia Stercoral colitis Decubitus ulcer Hypoxia CHF exacerbation MDD (major depressive disorder), recurrent episode, moderate Adjustment disorder with mixed anxiety and depressed mood Panic disorder Cellulitis of right lower extremity Stasis dermatitis of both legs Asthma Hyperglycemia due to diabetes mellitus Congestive heart failure Obesity hypoventilation syndrome CKD (chronic kidney disease) stage 3, GFR 30-59 ml/min Acute on chronic combined systolic and diastolic CHF (congestive heart failure) Morbid obesity Diabetic neuropathy, painful Chronic pain High cholesterol Depression Diabetes Surgical History History of surgery Hx of cholecystectomy Family History Mother HTN (hypertension) Diabetes CAD (coronary artery disease) Father HTN (hypertension) Diabetes CAD (coronary artery disease) Maternal Grandmother CAD (coronary artery disease) Social History (Updated 11/21/24 @ 14:14 by BUBBA Robbins) Household Members: None Household Members Other:: GRANDSON Housing: Condominium 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 Do you presently have visiting nurse or other [facility] Unable to assess alcohol history related to: Unable to respond and Refusing to respond Alcohol intake: current Alcohol intake frequency: holidays/special occasions only Alcohol type: wine Comment: 1:1 Patient Tobacco Use Status: Former Tobacco user Tobacco use type: Cigarette Years Smoked: 38 e-Cigarette/Vaping Use: Never Used Second Hand Smoke Exposure: No Substance Use Type: Former Substance User Advance Directives Date on File: 04/30/23 service: No Current occupational status: disabled Current occupation: rt handed Cognitive needs: Yes (walker, cane) Hearing needs: No Vision needs: Yes (Rx glasses) Questionnaire PHQ-9 Over the last 2 weeks, how often have you been bothered by any of the following problems? 1. Little interest or pleasure in doing things: nearly every day 2. Feeling down, depressed, or hopeless: nearly every day 3. Trouble falling or staying asleep, or sleeping too much: nearly every day 4. Feeling tired or having little energy: nearly every day 5. Poor appetite or overeating: nearly every day 6. Feeling bad about yourself - or that you are a failure or have let yourself or your family down: nearly every day 7. Trouble concentrating on things, such as reading the newspaper or watching television: nearly every day 8. Moving or speaking so slowly that other people could have noticed. Or the opposite - being so fidgety or restless that you have been moving around a lot more than usual: several days 9. Thoughts that you would be better off or of hurting yourself in some way: not at all Total score: 22 Source: Developed by Drs. Song Peters, Isael Gtz and colleagues, with an educational desean from [employer]. Thrive Questionnaire Date Thrive assessed: 11/21/24 I am a: Patient What is your living situation today?: I have a steady place to live Within the past 12 months, did the food you bought not last and you didn't have the money to get more?: Never true Within the past 12 months, did you worry whether your food would run out before you got money to buy more?: Never true Do you have trouble paying for medicines?: No Do you have trouble getting transportation to medical appointments?: No Do you have trouble paying your heating and electricity bill?: No Do you have trouble taking care of your child, family member or friend?: No Do you have trouble with day-to-day activities such as bathing, preparing meals, shopping, managing finances, etc.?: No Are you currently unemployed and looking for a job?: No Are you interested in more education?: No Please select the resources that you would like help with: None THRIVE Score: 0 AUDIT C Alcohol Use Questionnaire (AUDIT-C) 1. How often do you have a drink containing alcohol?: Monthly or less 2. How many drinks containing alcohol do you have on a typical day when you are drinking?: 1 or 2 Total Score: 1 TIMMY-7 AMB Questionnaire TIMMY-7 Date TIMMY - 7 assessed: 11/21/24 Feeling nervous, anxious, or on edge: 3 = Nearly every day Not being able to stop or control worryin = Nearly every day Worrying too much about different things: 3 = Nearly every day Trouble relaxin = Nearly every day Being so restless that it is hard to sit still: 1 = Several days Becoming easily annoyed or irritable: 3 = Nearly every day Feeling afraid as if something awful might happen: 3 = Nearly every day Total TIMMY-7 score (0-4 normal; 5-9 mild; 10-14 moderate; 15-21 severe): 19 Source: Developed by Joelle Dunn Kurt Kroenke and colleagues, with an educational desean from [employer]. Physical exam (Primary Care) Vital Signs: Last Vital Signs Temp 98.0 F 11/21/24 14:14 Pulse 80 11/21/24 14:14 Resp 16 11/21/24 14:14 BP 128/70 11/21/24 14:14 Pulse Ox 99 11/21/24 14:14 Oxygen Delivery Method Room Air 11/21/24 14:14 BMI result Body Mass Index 50.7 Tobacco/Smoking Status: Tobacco use Status Tobacco use date assessed 11/21/24 11/21/24 14:05 Patient Tobacco Use Status Former Tobacco user 11/21/24 14:14 Tobacco use type Cigarette 11/21/24 14:14 e-Cigarette/Vaping Use Never Used 11/21/24 14:14 PHQ-9: PHQ-9 Score PHQ-9: Total score 22 11/21/24 14:27 Thrive Assessment: Date of Thrive Assessment Date Thrive assessed 11/21/24 11/21/24 14:05 Const General: cooperative and healthy appearing Nutritional Appearance: well nourished Orientation/consciousness: patient oriented x3 Limitations: no limitations HENMT Head: Yes normal to inspection Eyes General: appearance normal, both eyes and all related structures Neck Neck: Yes normal visual inspection Chest Chest palpation & inspection: normal palpation of entire chest wall Resp Effort & Inspection: normal respiratory effort Neuro General: patient oriented x3 Coding Level of Care Code Est Pt Level 4 (36563) Complex EM visit Add On G2211 Diagnoses Cataracts, bilateral H26.9 Hypertension I10 Assessment & Plan Assessment & Plan (1) Cataracts, bilateral: Code(s): H26.9 - Unspecified cataract Category: Medical Plan: Blood work and EKG ordered. (2) Hypertension: Code(s): I10 - Essential (primary) hypertension Category: Medical Plan: Blood pressure is in range. Orders: Orders Complete Blood Count no Diff Today H26.9 - Unspecified cataract, I10 - Essential (primary) hypertension Lipid Panel Today H26.9 - Unspecified cataract, I10 - Essential (primary) hypertension Liver Panel Today H26.9 - Unspecified cataract, I10 - Essential (primary) hypertension UA and rflx microscopic Today H26.9 - Unspecified cataract, I10 - Essential (primary) hypertension ECG 12 lead EKG Today H26.9 - Unspecified cataract Basic Metabolic Panel Today H26.9 - Unspecified cataract, I10 - Essential (primary) hypertension Thyroid Stimulating Hormone Today H26.9 - Unspecified cataract, I10 - Essential (primary) hypertension
[2024-11-21 14:14] VITALS: BP 128/70; PULSE 80; RESP 16; TEMP 36.7; O2SAT 99; BMI 50.7
--- OUTSIDE RECORDS SUMMARY | 2024-11-21 15:28 | XMS_ITS | Clinical Summary ---
Author Organization [facility] Address [address] [place] [address] Phone Care Team Providers Care Supervisor Shearing Name Role Phone Tavo Huber MD Primary Care Provider [phone] Allergies No known active allergies Medications diclofenac (Voltaren Arthritis Pain) 1 % topical gel Apply 4 g topically 2 (two) times a day. 240 g 1 11/27/19 25 Active Encounters Date Type Department Care Team Description 09/27/2024 1:00 PM EDT Consult Orthopedic Surgery - [place] [address] [phone] Nik Tee, DPM Peripheral venous insufficiency (Primary Dx); Dermatophytosis of nail; Pain in toe of right foot; Pain in toe of left foot; Type II diabetes mellitus with peripheral circulatory disorder (CMS/HCC V24, CMS/HCC V28); Diabetic mononeuropathy simplex (CMS/HCC V24, CMS/HCC V28); Acquired hammer toe of right foot; Hammer [...] Vaccines (1 of 2) 2011 RSV Immunization Adult Patients (1 - Risk 60-74 years 1-dose series) 2021 Cholesterol Screening (Lipid Panel) 07/02/2022 Colorectal Cancer Screening: Colonoscopy 07/02/2022 Depression Screening 07/02/2022 HIV Screening 07/02/2022 Hepatitis C Screening 07/02/2022 Social Influencers of Health Screening 07/02/2022 COVID-19 Vaccine ( season) 2024 Diabetes: Annual Urine Albumin-Creatinine Ratio (uACR) 09/27/2024 Diabetes: Blood Sugar Control Test (HGBA1C) 09/27/2024 Hypertension/CHF/CAD Annual BMP Blood Test 09/27/2024 Influenza Vaccine (Season Ended) 2025 04/21/2022, 12/15/2021, 06/03/2018, Additional history exists Pneumococcal Vaccine: 50+ Years (3 of 3 [...] age to complete this topic Meningococcal B Vaccine Aged Out No l onger eligible based on patient's age to complete this topic RSV Immunization Patients Under 20 months Aged Out No longer eligible based on patient's age to complete this topic Varicella Vaccines Aged Out No longer eligible based on patient's age to complete this topic Insurance [facility] [employer] Advance Directives Documents on File Type Date Recorded Patient Wood Piler Expl anation Health Care Decision (hx) 02/25/2022 [...] (hx) 10/14/2020 AD GARCIA DIRECTIVE Care Teams Supervisor Shearing Relationship Specialty Start Date End Date Tavo Huber MD [address] [place] [address] Dr Anjelica [place] PCP - General Internal Medicine 10/09/21
--- OUTSIDE RECORDS SUMMARY | 2024-11-21 15:29 | XMS_ITS | Clinical Summary ---
Author Organization [facility] Address [address] [place] [address] Phone Care Team Providers Care Carton Making Machinist Name Role Phone Tavo Huber MD Primary Care Provider [phone] Allergies Active Allergy Reactions Criticality Noted Date [...] 12/17/2022 Type 2 diabetes mellitus 01/16/2021 Immunizations Immunization Administration Dates Next Due Pneumococcal Conjugate 13-Valent [...] Diabetes: Visual Foot Exam 09/21/2020 Influenza Vaccine (Season Ended) 2025 Pneumococcal Vaccine: 50+ Years (4 of 4 - PCV20 or PCV21) 12/16/2026 12/16/2021, 01/21/2021, 09/09/2018, Additional history exists Pneumococcal Vaccine: Peds (0 to 5 Years) and At-Risk Patients (6 to 49 Years) Discontinued 12/16/2021, 01/21/2021, 09/09/2018, Additional history exists Hepatitis B Vaccine Aged Out No longe r eligible based on patient's age to complete [place] [id number] [place] [facility] [place] [id number] Care Teams Carton Making Machinist Relationship Specialty Start Date End Date Tavo Huber MD [id number] [place] PCP - General 07/30/20
--- OUTSIDE RECORDS SUMMARY | 2024-11-21 15:29 | XMS_ITS | Data Portability ---
Author Organization [facility], Main Office Address [address] [facility] [facility], [address] [place] [address] Care Team Providers Care Sample Sawyer Name Role Phone SISI WATSON Primary Care Provider [facility] ([facility] OTHER Assessment Encounter Date Assessment Date Assessment LastModified by Organization Details LastModified Time 11/17/2022 11/17/2022 11/13/22 wbc 11.9, hgb 9.9, plt 226, na 140, k 4.9, bun 103, creat 3.30, LFTs normal [id number] Not available 11/17/2022 13:30:40 11/24/2022 11/24/2022 11/13/22 [...] Recorded Time Chronic kidney disease stage 3A 082815697 Active 2022 Andi Mejia MD [address] [facility], [address], [place], [address], [facility] 3 09:24:07 Morbid obesity 367233443 Active 2022 Andi Mejia MD [address], [address], [place], [address], [facility] 3 09:29:42 Chronic combined systolic and diastolic heart failure 3558959173974 00 Active 2022 Andi Mejia MD [address], [address], [place], [address], [facility] 3 09:29:52 Nonischemic congestive cardiomyopa thy 660408572811 Active 2022 Andi Mejia MD [address], [address], [place], [address], [facility] 3 09:30:08 Anxiety 42883747 Active 2022 Andi Mejia MD [address], [address], [place], [address], [facility] 3 09:30:15 Depressive disorder 14481328 Active 2022 Andi Mejia MD [address], [address], [place], [address], [facility] 3 09:30:19 Asthma 306317381 Active 2022 Andi Mejia MD [address], [address], [place], [address], [facility] 3 09:30:26 Chronic pain 48970095 Active 2022 Andi Mejia MD [address], [address], [place], [address], [facility] 3 09:30:32 Chronic constipatio n 478991440 Active 2022 Andi Mejia MD [address], [address], [place], [address], [facility] 3 09:30:40 Chronic obstructive pulmonary disease 71384956 Active 2022 Andi Mejia MD [address], [address], [place], [address], [facility] 3 09:30:44 Diabetic peripheral neuropathy 124614630 Active 2022 Andi Mejia MD [address], [address], [place], [address], [facility] 3 09:30:56 Diabetes mellitus 28836214 Active 2022 Andi Mejia MD [address], [address], [place], [address], [facility] 3 09:31:01 Mixed hyperlipide matilda 352194177 Active 2022 Andi Mejia MD [address], [address], [place], [address], [facility] 3 09:31:09 Essential hypertensio n 71782731 Active 2022 Andi Mejia MD [address], [address], [place], [address], [facility] 3 09:31:15 Obstructive sleep apnea syndrome 26238923 Active 2022 Andi Mejia MD [address], [address], [place], [address], [facility] 3 09:31:20 Panic disorder 219894992 Active 2022 Andi Mejia MD [address], [address], [place], [address], [facility] 3 09:31:26 Coronary arterioscle rosis 68461204 Active 2022 Andi Mejia MD [address], [address], [place], [address], [facility] 3 09:31:30 Chronic kidney disease stage 4 975699725 Active 2022 Carolina Dennis MD [address], [address], [place], [address], [facility] 3 18:36:56 Acute hyponatremi a 8187733 Active 2022 Carolina Dennis MD [address] [facility], [address], [place], [address], [facility] 3 18:43:11 Asthenia 94568728 Active 2022 Carolina Dennis MD [address] [facility], [address], [place], [address], [facility] 3 18:43:57 Problem Notes None recorded. Medical Equipment None Reported. Allergies Allergen ID Allergen Name Allergen Category Reaction Reaction Severity Criticality Documentation Date Start Date Code Code System Note Provider Name and Address Organization Details Recorded Time 27240 ibuprofen medicatio n Not available Not available Not available 10/08/2022 5640 RxBlake Mejia MD [address] [facility], [address], [place], [address], [facility] 3 09:16:39 73220 Tylenol medicatio n Not available Not available Not available 10/08/2022 3 RxBlake Mejia MD [address] [facility], [address], [place], [address], [facility] 3 09:16:43 19370 morphine medicatio n Not available Not available Not available 10/08/2022 [id number] Magdaleno Mejia MD [address] [place] [address], [address], [place], [address], [facility] 3 09:16:48 Medications Name Sig Start Date Stop Date [...] 124 mm[Hg] 70 mm[Hg] CHAKA Hawkins [address] [facility], [address], [place], [address], [facility] 3 07:57:14 Date Recorded Heart rate Respiratory rate Body temperature Oxygen saturation Oxygen saturation in Arterial blood by Pulse oximetry Provider Name and Address Organization Details Last Updated DateTime 3 74 /min 16 /min 97.8 [degF] 96 % 96 % PEDRO MONAE NP [address] [facility], [address], [place], [address], [facility] 3 15:33:19 Date Recorded Body weight Body mass index (BMI) Body height Heart rate Respiratory rate Body temperature Oxygen saturation Oxygen saturation in Arterial blood by Pulse oximetry Systolic blood pressure Diastolic blood pressure Provider Name and Address Organization Details Last Updated DateTime 3 806009. 54 g 44.6 kg/m2 157.48 cm 80 /min 18 /min 97.6 [degF] 96 % 96 % 148 mm[Hg] 82 mm[Hg] Carolina Dennis MD [address] [facility], [address], [place], [address], [facility] 3 18:00:03 Social History Question Answer Notes LastModified by Organizat ion Details LastModified Time Tobacco Smoking Status Former Smoker quit 1999 30+ pack year hx Andi Mejia MD [address] [facility], [address], [place], [address], [facility] 10/08/2022 11:59:39 Do You Have An Advance Directive? Yes Information not available 10/08/2022 What Is Your Level Of Alcohol Consumption? None Information not available 10/08/2022 What Is Your Code Status? Full Code Information not available 10/08/2022 Where Do You Live? Apartment Information not available 11/24/2022 Legal Guardian? No Informati on not available 11/24/2022 Do You Have A Medical Power Of Accounts Payable Accountant? Yes Information not available 11/24/2022 What Was [...] Organization Details LastModified Time Mother Diabetes mellitus [place] [id number] Not available 2022 09:18:22 Father Diabetes mellitus Not available 2022 09:18:35 Father Hypertensive disorder Not available 2022 09:18:43 Medical History No medical history recorded. Gynecological HistoryNo gynecological history recorded. Obstetrics History GPAL:G 0 P 0 0 0 0 Immunizations Vaccine Type Date Status Note Provider Nam e and Address Organization Details Recorded Time pneumococcal polysaccharide PPV23 7 completed [facility] 09/23/2023 15:30:16 pneumococcal polysaccharide PPV23 2 completed [facility] 09/23/2023 15:31:52 Past Encounters Encounter ID Performer Location Encounter Start Date Encounter Closed Date Diagnosis/Indication Diagnosis SNOMED-CT Code Diagnosis ICD10 Code Diagnosis Note [id number] Andi Mejia MD [facility] on [address] [place] [address] 10/08/2022 09:16:00 10/13/2022 13:18:32 Acute kidney injury 70844663 N17.8 ARF on CRF stage 3 at baseline however appear to be stage 4improved with IVFmonitor renal functionav oid nephrotoxi c meds as ablenephro consult Chronic ki dney disease stage 3A 289846280 N18.31 carrying dx of crf stage 3 however appear stage 4 Asthenia 55211615 R53.1 severe deconditio ningPT OT eval and treatmonit or need for increased services in community vs need to transition to LTC Acute hyponatremia 10213 02 E87.1 Zj=855 in hospitalre peat bmp and monitor lytes Morbid obesity 829957296 E66.01 dietary to eval Chronic co mbined systolic and diastolic heart failure 1106363244 15583 I50.42 bumex 2 mg qam 1 mg qpmspirono lactone 25 mg bidmonitor respirator y and fluid statusmoni tor renal function with recent arf on crf Nonischemi c congestive cardiomyopathy 0528074851 04 I42.0 added to PMHcontinu e current meds Anxiety 41245151 F41.1 fluoxetine 40 mg qdrisperda l 1 mg bid question dx of bipolarto contact PCP for full dx listpsych to evalmonito r for behaviors Asthma 237018002 J45.99 8 at baselineal buterol MDI prn Depressive disorder 3548 9007 F33.8 see above Chronic pain 17465081 G8 9.29 gabapentin 400 mg tidoxycodo ne 5 mg q 6 prnmonitor for effect Chronic constipation 236 973910 K59.09 bowel protocol Chronic ob structive pulmonary disease 81549559 J41.1 carrying dxadded to PMHmonitor respirator y status Diabetic p eripheral neuropathy 833210481 E11.42 gabapentin 400 mg tidmonitor for effect Diabetes mellitus 821792 09 E11.21 lantus 50 units bidSS insulinmon itor blood glucose and need to titrate Mixed hyperlipidemia 267 181468 E78.2 simvastati n 20 mg qdcontinue d Essential hypertension 85794673 I10 appears to have difficult to control htn current onbumex 2 mg qam 1 mg qpmspirono lactone 25 mg bidmetopro lol 50 mg qdnorvasc 5 mg qdimdur 30 mg qdhydralaz ine 25 mg bidmonitor bp and need to titrate Obstructiv e sleep apnea syndrome 33624352 G47.33 carrying dx added to PMH Panic disorder 202426538 F41.0 see aboveon risperdalp sych to eval Coronary arteriosclerosis 11577599 I25.10 metoprolol 50 mg qdASA 81 mg qdsimvasta tin 20 mg qdcontinue d [id number] AHSAN MCCONNELL NP [facility] on [address] [place] [address] 10/14/2022 11:46:11 10/16/2022 16:00:13 Acute kidney injury 77821341 N17.8 ARF on CRF stage 3 at baseline however appear to be stage 4improved with IVFmonitor renal function - check CMP in am x 1avoid nephrotoxi c meds as able; is on diureticsn ephro consult prn Chronic ki dney disease stage 3A 047495132 N18.31 carrying dx of crf stage 3 however appear stage 4 Asthenia 11288510 R53.1 severe deconditio ningPT OT eval and treatmonit or need for increased services in community vs need to transition to LTC Acute hyponatremia 98935 02 E87.1 Sp=283 in hospitalCM P x 1 in am Morbid obesity 124036448 E66.01 dietary to evalChange diet from regular to carb control Chronic co mbined systolic and diastolic heart failure 8347446859 57197 I50.42 bumex 2 mg qam 1 mg qpmspirono lactone 25 mg bidmonitor respirator y and fluid statusmoni tor renal function with recent arf on crf - CMP in am Nonischemi c congestive cardiomyopathy 6167926916 04 I42.0 added to PMHcontinu e current meds Anxiety 49976212 F41.1 fluoxetine 40 mg qdrisperda l 1 mg bid question dx of bipolarto contact PCP for full dx list - re-request edpsych to cassie mccain for behaviors Asthma 065104428 J45.99 8 at baselineal buterol MDI prn Depressive disorder 3548 9007 F33.8 see above Chronic pain 08117185 G8 9.29 gabapentin 400 mg tidoxycodo ne 5 mg q 6 prnmonitor for effect Chronic constipation 236 168626 K59.09 Add senna-s 2 tabs dailybowel protocolMo nitor and adjust as needed Chronic ob structive pulmonary disease 72526473 J41.1 carrying dxadded to PMHmonitor respirator y status Diabetic p eripheral neuropathy 144498398 E11.42 gabapentin 400 mg tidmonitor for effect Diabetes mellitus 616876 09 E11.21 lantus 50 units bidSS insulinmon itor blood glucose and need to [id number] x 1 in am Mixed hyperlipidemia 267 969921 E78.2 simvastati n 20 mg qdCMP, lipids x 1 in amcontinue d Essential hypertension 80501927 I10 appears to have difficult to control htn current onbumex 2 mg qam 1 mg qpmspirono lactone 25 mg bidmetopro lol 50 mg qdnorvasc 5 mg qdimdur 30 mg qdhydralaz ine 25 mg bidmonitor bp and need to titrate Obstructiv e sleep apnea syndrome 48292929 G47.33 carrying dx added to PMH Panic disorder 248707717 F41.0 see aboveon risperdalp sych to eval Coronary arteriosclerosis 92237707 I25.10 metoprolol 50 mg qdASA 81 mg qdsimvasta tin 20 mg qdcontinue d [id number] Andi Mejia MD [facility] on [address] [place] [address] 10/22/2022 15:37:47 10/24/2022 12:17:55 Chronic kidney disease stage 3A 940694661 N18.31 carrying dx of crf stage 3 however appear stage 4monitor renal functionla bs ordered for tomorrow then q tuesdaysav oid nephrotoxi c meds as ablerefer to nephrowill attempt voiding trial in am with bladder scan q shift and straight cath if > 300cc Asthenia 33185524 R53.1 improving with therapynow able to ambulate up to 100 feet with walker with contact guardmonit or need for increased services in community vs need to transition to LTC Acute hyponatremia 40905 02 E87.1 Um=122 in [facility] bmp and monitor lytesorder ed for tomorrow Chronic co mbined systolic and diastolic heart failure 2115689623 41920 I50.42 bumex 2 mg qam 1 mg qpmspirono lactone 25 mg bidmonitor respirator y and fluid statusmoni tor renal function with recent arf on crf Essential hypertension 72750737 I10 bumex 2 mg qam 1 mg qpmspirono lactone 25 mg bidmetopro lol 50 mg qdnorvasc 5 mg qdimdur 30 mg qdhydralaz ine 25 mg bidmonitor bp and need to titrate [id number] CHAKA Hawkins [facility] on [address] [place] [address] 10/27/2022 11:28:29 10/29/2022 10:44:01 Acute constipation 334888596 K59.09 xray of abdomen for unknown amount [...] d Chronic ki dney disease stage 3A 765759615 N18.31 bun/creat remains elevated, though lab results as above slightly better on 10/23/22avoi d nephrotoxi c meds as ablerefer to nephro - will notify care team coordinator scheduler Acute hyponatremia 70513 02 E87.1 Na 139 on 10/23/22labs weekly on Tuesdays Chronic co mbined systolic and diastolic heart failure 1724103521 63391 I50.42 compensate dbumex 2 mg q am, 1 mg q pmspironol actone 25 mg bidmonitor fluid statusmoni tor renal function as above Essential hypertension 17363608 I10 ortho BPs bid x 3 dayswill dc hydralazin e 25 mg bid nowbumex 2 mg q am, 1 mg q pmspironol actone 25 mg bidmetopro lol 50 mg qdnorvasc 5 mg qdimdur 30 mg qdmonitor bp and need to titrate [id number] Andi Mejia MD [facility] on [address] [place] [address] 10/28/2022 12:36:51 10/30/2022 15:40:26 Panic disorder 644717976 F41.0 appears to be experienci ng panic attackvita l stablestar t ativan 0.5 mg q 4 may repeat in 30 min for effectscri pt and e kit script writtento ED for acute decompensa tionof note labs were ordered for today however not drawn [id number] Andi Mejia MD [facility] on [address] [place] [address] 10/31/2022 11:44:27 11/03/2022 16:09:35 Orthostatic hypotension 44624329 I95.1 with therapy stating bp dropped to 80's/40's when standing Essential hypertension 99845357 I10 see abovebumex 2 mg qam 1 mg qpmspirono lactone 25 mg bidmetopro lol 50 mg qd(norvasc 5 mg qd now discontinu ed)imdur 30 mg qdhydralaz ine 25 mg bidmonitor bp and need to titrate Pain of le ft shoulder joint 6245959993 0362739 M25.512 probable underlying OAx ray orderedawa it results Panic disorder 874348104 F41.0 patient now much improved and back to baselinemo nitor need to titrate ativan [id number] EPIFANIO CHEN [facility] on [address] [place] [address] 11/13/2022 13:45:01 11/18/2022 16:00:29 Essential hypertension 29140625 I10 continue bumex 2 mg qam 1 mg qpmspirono lactone 25 mg bidmetopro lol 50 mg qdimdur 30 mg qdhydralaz ine 25 mg bidmonitor bp and need to titrate Chest pain 43800276 R07. 9 see HPIno changes to plan of care despite elevated D dimer and tropnot felt to be pleuriticO rdered prn nitro for chest pain Chronic ki dney disease stage 3A 386650666 N18.31 likely moving to end stage with creat of 103 and bun 3.30encour age PO fluidsavoi d nephrotoxi c meds Anxiety 27476278 F41.1 ativan 0.5 mg q 4 hours PRNcontinu e [id number] CHAKA Hawkins [facility] on [address] [place] [address] 11/17/2022 07:53:39 11/19/2022 11:29:11 Chest pain 68098172 R07.9 no chest pain while in ED last night and EKG reassuring no changes to plan of care despite elevated D dimer and tropnot felt to be pleuriticp rn nitro available for chest pain Essential hypertension 43794512 I10 bp normalbume x 2 mg q am, 1 mg q pmspironol actone 25 mg bidmetopro lol 50 mg qdimdur 30 mg qdmonitor bp and adjust meds prn Chronic ki dney disease stage 3A 371639320 N18.31 likely moving to end stage with creat of 103 and bun 3.30encour age PO fluidsavoi d nephrotoxi c medsmonito r renal functionre jerry to nephro if pt and family agree Pain of le ft shoulder joint 3412518700 3324352 M25.512 is chronicno fracture on xray in ED though does have osteophyte s and joint space narrowingc ontinue tizanidine 4 mg qhs [id number] [facility] [address] [place] [address] 11/18/2022 14:37:50 11/20/2022 14:56:24 Chronic combined systolic and diastolic heart failure 1414069392 67103 I50.42 compensate d bumex 2 mg q am, 1 mg q pm spironolac tone 25 mg bid monitor fluid status monitor renal function Anxiety 96989664 F41.1 ativan 0.5 mg q 4 hours PRNpsych prn [id number] Carolina Dennis MD [facility] on [address] [place] [address] 11/24/2022 17:49:54 11/28/2022 12:00:50 Chronic combined systolic and diastolic heart failure 0338296660 39521 I50.42 Appears euvolemic. Continue metoprolol 50 mg qd, bumex 2 mg q am and 1 mg q pm and spironolac tone 25 mg BIDMay need to decrease diuretics depending on renal functionMo nitor resp. status, fluid status, wts and labs. Anxiety 07201322 F41.1 Continue fluoxetine 30 mg qd and lorazepam 0.5 mg q 4 hrs prn.Monito r mood.Psych following. Essential hypertension 35244086 I10 Last check borderline , but otherwise good.Katherin nue bumex 2 mg q am and 1 mg q pm, spironolac tone 25 mg BID, metoprolol 50 mg qd, and imdur 30 mg qd.BP not being checked regularly, will order for M&F.Monito r BP and labs. Pain of le ft shoulder joint 3667091520 5821178 M25.512 Chronic pain with evidence of moderately severe OA per xray.With allergies to APAP, ibuprofen and morphine.W ill continue oxycodone 5 mg q 6 hrs prn.Will use ice, heat and PT and consider referral for steroid injection. Orthostati c hypotension 91302610 I95.1 Happened one time with rehab.No further episodes.M onitor. Acute constipation 24600 9006 K59.09 Improved on increased bowel regimen.Co ntinue bowel meds as ordered.Mo nitor bowel function. Acute hyponatremia 96743 02 E87.1 No labs since 11/13, will reorder weekly labs. Asthenia 71750808 R53.1 Remains deconditio sissy.Contin ues to need PT/OT for strengthen ing, balance, gait training, safety and function.C ontinue fall precaution s.Monitor for safety.Mon itor for needs in terms of outpt services versus LTC. Morbid obesity 948160287 E66.01 Continue to encourage healthy eating.Mon itor. Asthma 283863997 J45.99 8 As above. Depressive disorder 3548 9007 F33.8 see above Chronic pain 11282040 G8 9.29 With renal failure rec for gabapentin is qd.Will change to gabapentin 600 mg qd and continue tizanidine 4 mg qhs, and oxycodone 5 mg q 6 prnMonitor sxs Chronic ob structive pulmonary disease 77719828 J41.1 Combined obstructiv e and restrictiv e disease per PFTS in past.Katherin nue Flovent 110 mcg 2 puffs BID, and albuterol HFA 2 puffs q 4 hrs prn.Monito r resp status. Diabetic p eripheral neuropathy 231441262 E11.42 As above Diabetes mellitus 058174 09 E11.21 Sugars in good control since here. HgA1C was 8.5 in 3Cont inue lantus 50U BID and SSI.Monito r fingerstic ks TID and HgA1C q 3 months. Mixed hyperlipidemia 267 422459 E78.2 Continue simvastati n 20 mg qdMonitor labs yearly Obstructiv e sleep apnea syndrome 36942170 G47.33 Not on CPAP.Consi jo-ann sleep study. Coronary arteriosclerosis 97907344 I25.10 No recent sxs (recent chest pain not thought to be cardiac.)C ontinue meds as above.F/U with cardio prn. Chronic ki dney disease stage 4 472403773 N18.4 No labs since 11/13.With severely elevated BUN.Will order labs for tomorrow.N eeds renal consult.Wi ll be real balancing act with management of CHF and CKD. [id number] Andi Mejia MD [facility] on [address] [place] [address] 11/26/2022 14:50:28 11/28/2022 12:50:15 Acute kidney injury 37507079 N17.8 ARF on CRF stage 3 at baseline however appear to be stage 4improved with IVFmonitor renal functionav oid nephrotoxi c meds as ablenephro consult Chronic ki dney disease stage 3A 652328189 N18.4 see HPImonitor renal function on bumex and spironolac tone for CHFrepeat bmp at f/u with pcp Asthenia 84980290 R53.1 will need 24 hour supervisio n now in place in community Chronic co mbined systolic and diastolic heart failure 6822821047 42201 I50.42 bumex 2 mg qam 1 mg qpmspirono lactone 25 mg bidmonitor respirator y and fluid statusmoni tor renal function with recent arf on crf Coronary arteriosclerosis 63110540 I25.10 metoprolol 50 mg qdASA 81 mg [...] Name 11/13/2022 1 [place] Lupis Mueller [id number] Lupis Mueller 11/17/2022 1 [place] Lupis Mueller [id number] Lupis Mueller 11/18/2022 1 [place] Lupis Mueller [id number] Lupis Mueller 11/24/2022 1 [place] Lupis Mueller [id number] Lupis Mueller 11/26/2022 1 [place] Lupis Mueller [id number] Lupis Mueller Notes Date Note Type Note [...] yesterday. She appears very anxious. EPIFANIO CHEN [address] [place] [address], [address], [place], [address], [facility] [employer] [facility] 11/13/2022 14:07:45 3 text/html pt seen today for acute telemedicine visit. last night pt called 911 and sent herself out to [facility] ED stating per nurse that she [...] did accept tx to SNF for rehab. Beulah Hickman, UNARMED SECURITY OFFICER [address] [facility], [address], [place], [address], [facility] [employer] [facility] 11/17/2022 13:34:21 3 text/html seen today for acute rounding visit, DARNELLx3 in the day room in her wheelchair, she is weepy saying my legs don't work anymore , chatted withher for a few minutes and she calmed, lungs clear, ate well at lunch PEDRO MONAE, NINFA [address] [facility], [address], [place], [address], [facility] 11/19/2022 10:31:14 3 text/html This is a 62 yo woman who I am seeing today for a routine MD 60 day reeval rounding visit. She was admitted here on 10/03 after spending several days at the [facility] ED awaiting placement. She had been seen at the [facility] ED several times in the month prior. [...] region which are being followed by wound care.Octaviano she tells me her bowels are back [...] since she was admitted to this facility. CUT OFF SAW TENDER METAL concurs and [facility] records show this also. pt is eating 75-100% of all her meals. currently on senna 2 qhs and colace daily. pt is making progress with rehab, walking up to 165 feet. ghotra cath recently removed and pt is voiding normally. Carolina Dennis MD [address] [facility], [address], [place], [address], [facility] 11/24/2022 20:21:29 3 text/html Patient is a [...] home. Will require 24/7 supervision with VNA, CHECKOUT SUPERVISOR and meals on wheels in place, will be living with daughter. Discussed with MARY KATE. Of note labs were ordered yesterday, called labs for result with significant improvement in bun/cre Andi Mejia MD [address] [facility], [address], [place], [address], [facility] 11/26/2022 14:57:47 OBGyn Episode No OBEpisode recorded.
== END 2024-11-21 15:16 | disposition home or self-care (01) ==
LOC: HO.HMCHD 13:56
PROVIDERS: PCP Internal Medicine; Visit Provider Internal Medicine
DX: H26.9 Unspecified cataract (principal); I10 Essential (primary) hypertension

== ENCOUNTER → 2024-11-21 13:55 | Outpatient (BNVA) | payer OTHER, SELFPAY | PROVIDERS: PCP Internal Medicine; Visit Provider Internal Medicine | DX: Z01.818 Encounter for other preprocedural examination (principal); H26.9 Unspecified cataract; I10 Essential (primary) hypertension | CPT/HCPCS: 99212 ==

== ENCOUNTER 2024-12-20 11:01 | Outpatient (AMB) | payer OTHER, SELFPAY ==
--- NOTE | 2024-12-20 11:04 | A.OFFPC_ITS ---
Vital Signs 12/20/24 11:08 Height 5 ft 2 in Weight 122.47 kg BMI 49.4 BP 101/42 L Respiration 18 Pulse 98 Pulse Source Pulse Oximeter Temp 97.1 F Pulse Oximetry (%) 94 Oxygen Delivery Method Room Air Intake Visit Reasons: Office visit Government Minister Required: No Accompanied by: Self / Same As Patient Allergies ibuprofen Allergy (Intermediate, Verified 12/20/24 11:09) vomiting, itching acetaminophen [Tylenol] Allergy (Unknown, Verified 12/20/24 11:09) Unknown codeine Adverse Reaction (Severe, Verified 12/20/24 11:09) Anaphylaxis morphine Adverse Reaction (Intermediate, Verified 12/20/24 11:09) vomiting vancomycin Adverse Reaction (Intermediate, Verified 12/20/24 11:09) Itching Tobacco use date assessed: 11/21/24 Dental Screening Dental Screen Date: 11/21/24 HPI HPI Comments History of Present Illness Details 64-year-old female with history of hyper tension, diabetes, anxiety presents to the office today for follow-up. She has not yet had labs completed as ordered by PCP. Last hemoglobin A1c was 6.3%. She continues using 60 units of Lantus, Zepbound, as well as sliding scale insulin. She tells me her sugars are typically around 100 but have been as low as 58. She has been experiencing intermittent lightheadedness where she feels as if she is going to blackout. No shortness a breath, palpitations, chest pain. She has also been taking Lasix 40 mg twice daily, hydralazine 25 mg b.i.d., isosorbide, metoprolol for management of her hypertension. Blood pressure in the office today is 101/42. She is following with both a therapist and psychiatrist and reports she is always anxious. She is taking clonidine 0.1 mg 3 times daily, sertraline, lorazepam, duloxetine. ROS: General: No fevers, malaise, unintentional weight loss HEENT: No blurred vision, diplopia. No sore throat, nasal congestion, rhinorrhea, sinus pain, ear pain Cardiovascular: No chest pain, palpitations, or leg edema Respiratory: No shortness of breath, wheezing, cough Neuro: see hpi Skin: No rashes or lesions EXAM: Constitutional - Awake and Alert, No apparent distress Eyes - PERRLA, EOMI Cardiovascular - S1S2, RRR, No edema Respiratory - Normal lung expansion, Normal respiratory effort, No respiratory distress, CTA bilaterally Extremities - no calf tenderness bilaterally, no swelling Skin - Warm/Dry Neurological - Alert & oriented x3, CN II-XII in tact Psychological - Appropriate affect PFSH Medical History (Updated 12/21/24 @ 14:55 by GUADALUPE Blackman) Cataracts, bilateral DANIEL (obstructive sleep apnea) COPD (chronic obstructive pulmonary disease) NICM (nonischemic cardiomyopathy) Hypertension Mood disorder Elevated d-dimer FELICIA (acute kidney injury) Abdominal pain Constipation Chronic respiratory failure with hypoxia Stercoral colitis Decubitus ulcer Hypoxia CHF exacerbation MDD (major depressive disorder), recurrent episode, moderate Adjustment disorder with mixed anxiety and depressed mood Panic disorder Cellulitis of right lower extremity Stasis dermatitis of both legs Asthma Hyperglycemia due to diabetes mellitus Congestive heart failure Obesity hypoventilation syndrome CKD (chronic kidney disease) stage 3, GFR 30-59 ml/min Acute on chronic combined systolic and diastolic CHF (congestive heart failure) Morbid obesity Diabetic neuropathy, painful Chronic pain High cholesterol Depression Diabetes Surgical History History of surgery Hx of cholecystectomy Family History Mother HTN (hypertension) Diabetes CAD (coronary artery disease) Father HTN (hypertension) Diabetes CAD (coronary artery disease) Maternal Grandmother CAD (coronary artery disease) Social History (Updated 11/21/24 @ 14:14 by BUBBA Robbins) Household Members: None Household Members Other:: GRANDSON Housing: Condominium Housing 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 Do you presently have visiting nurse or other home services: Yes ([facility] twice daily) Unable to assess alcohol history related to: Unable to respond and Refusing to respond Alcohol intake: current Alcohol intake frequency: holidays/special occasions only Alcohol type: wine Comment: 1:1 Patient Tobacco Use Status: Former Tobacco user Tobacco use type: Cigarette Years Smoked: 38 e-Cigarette/Vaping Use: Never Used Second Hand Smoke Exposure: No Substance Use Type: Former Substance User Advance Directives Date on File: 04/30/23 service: No Current occupational status: disabled Current occupation: rt handed Cognitive needs: Yes (walker, cane) Hearing needs: No Vision needs: Yes (Rx glasses) Questionnaire Thrive Questionnaire Date Thrive assessed: 11/21/24 TIMMY-7 AMB Questionnaire TIMMY-7 Date TIMMY - 7 assessed: 11/21/24 Source: Developed by Drs. Song Peters, Joelle Gray, Isael Ohara and colleagues, with an educational desean from [employer]. Physical exam (Primary Care) Vital Signs: Last Vital Signs Temp 97.1 F 12/20/24 11:08 Pulse 98 12/20/24 11:08 Resp 18 12/20/24 11:08 BP 101/42 L 12/20/24 11:08 Pulse Ox 94 12/20/24 11:08 Oxygen Delivery Method Room Air 12/20/24 11:08 BMI result Body Mass Index 49.4 Tobacco/Smoking Status: Tobacco use Status Tobacco use date assessed 11/21/24 12/20/24 11:06 Patient Tobacco Use Status Former Tobacco user 12/20/24 11:06 Tobacco use type Cigarette 12/20/24 11:06 e-Cigarette/Vaping Use Never Used 12/20/24 11:06 Thrive Assessment: Date of Thrive Assessment Date Thrive assessed 11/21/24 12/20/24 11:06 Coding Level of Care Code Est Pt Level 4 (60155) Diagnoses Lightheadedness R42 Hypertension I10 Type 2 diabetes mellitus with hyperglycemia, with long-term current use of insul in E11.65; Z79.4 Diabetes mellitus type: type 2 Diabetes mellitus long-term insulin use: with manager long term care use Diabetes mellitus complication status: with hyperglycemia Assessment & Plan Assessment & Plan (1) Lightheadedness: Code(s): R42 - Dizziness and giddiness Category: Medical Plan: Likely related to either hypoglycemia versus hypotension. Will reduce Lantus to 60 units daily given hemoglobin A1c of 6.3%. She can continue Zepbound. She is also recommended to discontinue clonidine to prevent significant drops in blood pressure. Recommend following up with her psychiatrist for further management of her anxiety. Advised to present to the ED should symptoms persist (2) Hypertension: Code(s): I10 - Essential (primary) hypertension Category: Medical Plan: Blood pressure low normal at 101/42 with map of 69. Clonidine discontinued as above. She can continue with metoprolol, isosorbide, hydralazine, Lasix as prescribed. Low-sodium diet. (3) Diabetes: Code(s): E11.9 - Type 2 diabetes mellitus without complications Category: Medical Qualifiers: Diabetes mellitus type: type 2 Diabetes mellitus manager long term care insulin use: with long-term use Diabetes mellitus complication status: with hyperglycemia Qualified Code(s): E11.65 - Type 2 diabetes mellitus with hyperglycemia; Z79.4 - group home (current) use of insulin Plan: Controlled with hemoglobin A1c of 6.3%. Will reduce Lantus to 60 units nightly and she can continue her sliding scale coverage as well as Zepbound. Diabetic diet advised Plan Follow-up in 2-3 weeks, sooner if needed plan as above Orders: Orders ECG 3 day holter monitor Today R42 - Dizziness and giddiness Medications: Changed From insulin glargine (Lantus Solostar U-100 Insulin) 60 units (0.6 mL) subcut DAILY 45 mL 3RF To insulin glargine (Lantus Solostar U-100 Insulin) 50 units (0.5 mL) subcut DAILY 45 mL 3RF Discontinued clonidine HCl Discontinued Reason: Doctor's Order 0.1 mg See Protocol PO TID PRN 90 tabs 3RF hyperarousal, anxiety, panic Patient Instructions: STOP clonidine. This can cause very low blood pressures which could be making you dizzy LOWER lantus to 50 units nightly. Continue sliding scale Call Dr. Rosenberg for further recommendations on anxiety Follow up in 2-3 weeks or soon if needed. Should symptoms recur- espicially if you fall- please call the ambulance
[2024-12-20 11:08] VITALS: BP 101/42; PULSE 98; RESP 18; TEMP 36.2; O2SAT 94; BMI 49.4
--- OUTSIDE RECORDS SUMMARY | 2024-12-20 12:43 | XMS_ITS | Clinical Summary ---
Author Organization [address] [facility] Address [address] [place] [address] Phone Care Team Providers Care Photographic Laboratory Technician Name Role Phone Tavo Huber MD Primary Care Provider [phone] Allergies No known active allergies Medications diclofenac (Voltaren Arthritis Pain) 1 % topical gel Apply 4 g topically 2 (two) times a day. 240 g 1 11/27/19 25 Encounters Date Type Department Care Team Description 09/27/2024 1:00 PM EDT Consult Orthopedic Surgery - [place] [address] [address] Nik Tee, DPM Peripheral venous insufficiency (Primary [...] this topic Insurance [facility] Rezdy PLAN Advance Directives Documents on File Type Date Recorded Patient Half Backer Expl anation Health Care Decision (hx) 02/25/2022 [...] (hx) 10/14/2020 AD GARCIA DIRECTIVE Care Teams Photographic Laboratory Technician Relationship Specialty Start Date End Date Tavo Huber MD [address] [place] [address] Dr Anjelica [place] PCP - General Internal Medicine 10/09/21
== END 2024-12-20 11:41 | disposition home or self-care (01) ==
LOC: HO.HMCHD 11:02
PROVIDERS: PCP Internal Medicine; Visit Provider Physician Assistant
DX: R42 Dizziness and giddiness (principal); I10 Essential (primary) hypertension; E11.65 Type 2 diabetes mellitus with hyperglycemia; Z79.4 Long term (current) use of insulin

== ENCOUNTER → 2024-12-20 11:01 | Outpatient (BNVA) | payer OTHER, SELFPAY | PROVIDERS: PCP Internal Medicine; Visit Provider Physician Assistant | DX: I10 Essential (primary) hypertension (principal); F41.9 Anxiety disorder, unspecified; R42 Dizziness and giddiness; E11.65 Type 2 diabetes mellitus with hyperglycemia; Z79.4 Long term (current) use of insulin | CPT/HCPCS: 99212 ==

== ENCOUNTER → 2024-12-28 12:57 | Outpatient (BNVA) | payer OTHER, SELFPAY | PROVIDERS: PCP Internal Medicine; Visit Provider Internal Medicine | DX: E11.65 Type 2 diabetes mellitus with hyperglycemia (principal); G47.33 Obstructive sleep apnea (adult) (pediatric); Z79.4 Long term (current) use of insulin | CPT/HCPCS: 82947; 83036; 99212 ==

== ENCOUNTER → 2025-01-30 10:39 | Outpatient (REF) | payer OTHER, SELFPAY ==
--- NOTE | 2025-01-30 10:41 | HM_ITS ---
Conclusion: 1. Patient was monitored for total period of 2 days and 23 hours 2. Baseline was normal sinus rhythm with average heart of 82 beats per minute 3. Rare PACs and PVCs noted without any significant pauses 4. One 3 beat nicole of nonsustained VT at 119 beats per minute 5. No patient reported events MTDD
--- OUTSIDE RECORDS SUMMARY | 2025-01-30 11:30 | XMS_ITS | Clinical Summary ---
Author Organization 175 [facility] Address [address] [place] [address] Phone Care Team Providers Care Mosaic Technician Name Role Phone Tavo Huber MD Primary Care Provider [phone] Allergies No known active allergies Social History Tobacco Use Types Packs/Day Years [...] Annual BMP Blood Test 09/27/2024 Influenza Vaccine (#1) 2025 , 12/15/2021, 06/03/2018, Additional history exists Pneumococcal Vaccine: [...] patient's age to complete this topic Insurance [facility] HEALTH PLAN Advance Directives Documents on File Type Date Recorded Patient Order Entry Specialist Expl anation Health Care Decision (hx) 02/25/2022 [...] (hx) 10/14/2020 AD GARCIA DIRECTIVE Care Teams Mosaic Technician Relationship Specialty Start Date End Date Tavo Huber MD [address] [place] [address] Dr Anjelica [place] PCP - General Internal Medicine 10/09/21
--- OUTSIDE RECORDS SUMMARY | 2025-01-30 11:31 | XMS_ITS | Clinical Summary ---
Author Organization [facility] Address [address] [place] [address] Phone Care Team Providers Care News Gathering Technician Name Role Phone Tavo Huber MD Primary Care Provider [phone] Allergies Active Allergy Reactions Criticality Noted Date [...] 2010 Colorectal Cancer Screening: Sigmoidoscopy 2010 Diabetes: Ophthalmology Exam 09/21/2020 Diabetes: Pedal Pulse Checked 09/21/2020 Diabetes: Sensory Foot Exam 09/21/2020 Diabetes: Visual Foot Exam 09/21/2020 Diabetes: Hemoglobin A1C 03/27/2022 12/25/2021 Influenza Vaccine (#1) 2025 12/15/2021 Pneumococcal Vaccine: 50+ Years (4 of 4 - PCV20 or PCV21) 12/16/2026 12/16/2021, 01/21/2021, 09/09/2018, Additional history exists Pneumococcal Vaccine: Peds (0 to 5 Years) and At-Risk Patients (6 to 49 Years) Discontinued 12/16/2021, 01/21/2021, 09/09/2018, Additional history exists Hepatitis B Vaccine Aged Out No longe r eligible based on patient's age to complete this topic Procedures Procedure Name Priority Date/Time Associated Diagnosis Comments RENAL FUNCTION PANEL (EXTERNAL LAB ENTRY) Routine 12/18/2024 from Last 3 Months Results * Renal Function Panel (External Lab) (12/18/2024) Glucose 56 mg/dL BUN 38 mg/dL eGFR 38 Sodium 145 mEq/L Potassium 4.3 mEq/L Chloride 110 Carbon Dioxide 20 mmol/L Calcium 8.9 mg/dL Phosphorus, Serum 4.4 mg/dL Albumin (Blood) 3.8 g/dL Creatinine 1.53 mg/dL Anion Gap 15 Blood 12/18/2024 Historical Provider LAB BLOOD ORDERABLES Ofelia l Result from Last 3 Months Insurance Medicaid [place] [facility] Medicaid Care Teams News Gathering Technician Relationship Specialty Start Date End Date Tavo Huber MD [address] [place] [address] [id number] [place] PCP - General 07/30/20
== END ==
LOC: HO.CARD 10:39
PROVIDERS: Visit Provider Physician Assistant
DX: R42 Dizziness and giddiness (principal)
CPT/HCPCS: 93242

== ENCOUNTER → 2025-01-30 10:41 | Outpatient (BNV) | payer OTHER, SELFPAY | PROVIDERS: Visit Provider Internal Medicine Cardiovascular Disease | DX: I49.1 Atrial premature depolarization (principal); I49.3 Ventricular premature depolarization | CPT/HCPCS: 93244 ==

== ENCOUNTER 2025-01-31 13:08 | Outpatient (AMB) | payer OTHER, SELFPAY ==
--- NOTE | 2025-01-31 13:09 | MHC.PC.OV ---
Vital Signs 01/31/25 13:21 Weight 123.831 kg Respiration 17 Pulse 84 Pulse Source Pulse Oximeter Temp 97.1 F Temp Source Temporal Artery Scan Pulse Oximetry (%) 97 Oxygen Delivery Method Room Air Intake Visit Reasons: r/s from 01/27 - see comments Business Performance Analyst Required: No Accompanied by: Self / Same As Patient Allergies ibuprofen Allergy (Intermediate, Verified 01/31/25 13:10) vomiting, itching acetaminophen (Tylenol) Allergy (Unknown, Verified 01/31/25 13:10) Unknown codeine Adverse Reaction (Severe, Verified 01/31/25 13:10) Anaphylaxis morphine Adverse Reaction (Intermediate, Verified 01/31/25 13:10) vomiting vancomycin Adverse Reaction (Intermediate, Verified 01/31/25 13:10) Itching Tobacco use date assessed: 11/21/24 Dental Screening Dental Screen Date: 11/21/24 HPI HPI Comments History of Present Illness Details 64-year-old female with history of hypertension, diabetes, anxiety presents to the office today for evaluation of multiple complaints. Reports she has been having ocular headaches ongoing for several months since she had her 1st cataract surgery in October. Then had subsequent surgeries in November and last month. She reports the pain is primarily located in the orbits but also the eyes and she has been seeing black spots. She does have upcoming appointment with [facility]. Denies any other changes in the headaches or vision. No complete loss of vision She has a reporting recurrent lightheadedness episodes where she has actually syncopized but did not seek medical treatment. The last syncopal episode was about 3 weeks ago. However she is lightheaded and upon going to the bathroom, became significantly lightheaded when she sat down and almost fell. There is no associated palpitations, shortness of breath, chest pain or vision changes. She is not on any blood thinners other than aspirin. She reports she has been drinking a lot of water but in talking to her niece, she has not been drinking much. She also tells me that she has had 2 ulcers on her buttock that have not been evaluated and has been present for several months. She reports they are itchy but denies any pain. No fevers or chills. She does not believe there has been any purulent drainage. headaches- long standing since cataract surgery october, november, more recently 01/03- pain in the eyes since. hasnt seen eye doctor. low of black specks. associate publisher knows. most of them time. present before the surgery. She is currently wearing Holter monitor. She is reporting chronic low back pain primarily midline but also some paraspinal tenderness. No radiculopathy, paresthesias, bowel/bladder dysfunction, saddle anesthesia. Bilateral knee pain has been ongoing for several years but is worsening. She reports her knees buckle at times causing her to fall as well. She does ambulate with a walker and a cane. She has gabapentin for pain and is also on duloxetine. falling on the floor and hitting head, passed out. no ER. BLE weakness long standing. knees buckling. cane and walker. last fall day before . back pain no radiation. middle and both sides. long standing Per her BULL BUCKER, [facility] is in the home with RN managing her medications. She is refusing to let them evaluate and treat the pressure ulcer. She is mostly sedentary and is not actively working on weight loss but is on tirzepatide. She is an insulin-dependent type 2 diabetic, last hemoglobin A1c 6.4%. She is compliant with her medications. She is wearing a CGM and denies any hypoglycemic episodes. ROS: Negative for all except those mentioned in HPI EXAM: Constitutional - Awake and Alert, No apparent distress Eyes - PERRL Cardiovascular - S1S2, RRR, No edema, weak radial pulses Respiratory - Normal lung expansion, Normal respiratory effort, No respiratory distress, CTA bilaterally Extremities - calf tenderness bilaterally without any palpable cords or erythema or warmth. MSK - tenderness in the medial and lateral joint spaces as well as patellar tendon in the knees bilaterally. Limited range of motion secondary to pain as well as habitus. Skin - Warm/Dry. Venous stasis changes in the bilateral lower legs Neurological - Alert & oriented x3 Psychological - Appropriate affect [facility] Medical History Cataracts, bilateral DANIEL (obstructive sleep apnea) COPD (chronic obstructive pulmonary disease) NICM (nonischemic cardiomyopathy) Hypertension Mood disorder Elevated d-dimer FELICIA (acute kidney injury) Abdominal pain Constipation Chronic respiratory failure with hypoxia Stercoral colitis Decubitus ulcer Hypoxia CHF exacerbation MDD (major depressive disorder), recurrent episode, moderate Adjustment disorder with mixed anxiety and depressed mood Panic disorder Cellulitis of right lower extremity Stasis dermatitis of both legs Asthma Hyperglycemia due to diabetes mellitus Congestive heart failure Obesity hypoventilation syndrome CKD (chronic kidney disease) stage 3, GFR 30-59 ml/min Acute on chronic combined systolic and diastolic CHF (congestive heart failure) Morbid obesity Diabetic neuropathy, painful Chronic pain High cholesterol Depression Diabetes Surgical History History of surgery Hx of cholecystectomy Family History Mother HTN (hypertension) Diabetes CAD (coronary artery disease) Father HTN (hypertension) Diabetes CAD (coronary artery disease) Maternal Grandmother CAD (coronary artery disease) Social History Household Members: None Household Members Other:: GRANDSON [facility] Other:: with associate publisher Do you presently have [facility] or other [facility] Unable to assess alcohol history related to: Unable to respond and Refusing to respond Alcohol intake: current Alcohol intake frequency: holidays/special occasions only Alcohol type: wine Comment: 1:1 Patient Tobacco Use Status: Former Tobacco user Tobacco use type: Cigarette Years Smoked: 38 e-Cigarette/Vaping Use: Never Used Second Hand Smoke Exposure: No Substance Use Type: Former Substance User Advance Directives Date on File: 04/30/23 service: No Current occupational status: disabled Current occupation: rt handed Cognitive needs: Yes (walker, cane) Hearing needs: No Vision needs: Yes (Rx glasses) Questionnaire Thrive Questionnaire Date Thrive assessed: 11/21/24 TIMMY-7 AMB Questionnaire TIMMY-7 Date TIMMY - 7 assessed: 11/21/24 Source: Developed by Drs. Song Peters, Joelle Gray, Isael Ohara and colleagues, with an educational desean from [employer]. Physical exam (Primary Care) Vital Signs: Last Vital Signs Temp 97.1 F 01/31/25 13:21 Pulse 84 01/31/25 13:21 Resp 17 01/31/25 13:21 Pulse Ox 97 01/31/25 13:21 Oxygen Delivery Method Room Air 01/31/25 13:21 Tobacco/Smoking Status: Tobacco use Status Tobacco use date assessed 11/21/24 01/31/25 13:12 Patient Tobacco Use Status Former Tobacco user 01/31/25 13:12 Tobacco use type Cigarette 01/31/25 13:12 e-Cigarette/Vaping Use Never Used 01/31/25 13:12 Thrive Assessment: Date of Thrive Assessment Date Thrive assessed 11/21/24 01/31/25 13:12 Office Procedures EKG Details: NSR, rate 82, no AV seth blocks, no ST/T wave abnormality [id number], Complete Coding Level of Care Code Est Pt Level 5 (70456) Diagnoses Syncope and collapse R55 Osteoarthritis of lumbar spine M47.816 Osteoarthritis of knees, bilateral M17.0 Decubitus ulcer of buttock, stage 2 L89.302 Type 2 diabetes mellitus with hyperglycemia, with long-term current use of insulin E11.65; Z79.4 Diabetes mellitus type: type 2 Diabetes mellitus longterm insulin use: with longterm use Diabetes mellitus complication status: with hyperglycemia Cataracts, bilateral H26.9 CPT Codes EKG - CPT: [id number]-[id number], Complete ([id number]) Assessment & Plan Assessment & Plan (1) Syncope and collapse: Code(s): R55 - Syncope and collapse Category: Medical Plan: Suspect orthostatic in nature. Unable to auscultate blood pressure in office, however had a near syncopal episode in the office. EKG without dysrrythmia or any av seth blocks or ST/T-wave abnormalities. Heart rate is stable, no bradycardia. Unable to check POC glucose in the office. Question dehydration related to poor oral intake while using high-dose diuretics. Referred to the ED for further evaluation and management. Expect call placed (2) Osteoarthritis of lumbar spine: Code(s): M47.816 - Spondylosis without myelopathy or radiculopathy, lumbar region Category: Medical Plan: Referred to physical therapy. Will increase gabapentin to 600 mg t.i.d. and can continue duloxetine. Also prescribed lidocaine patches. (3) Osteoarthritis of knees, bilateral: Code(s): M17.0 - Bilateral primary osteoarthritis of knee Category: Medical Plan: X-rays of bilateral knees ordered. Diclofenac gel ordered. Refer to orthopedics (4) Decubitus ulcer of buttock, stage 2: Code(s): L89.302 - Pressure ulcer of unspecified buttock, stage 2 Category: Medical Plan: No evidence of infection. Advised to clean the area well and keep dry. Referred to wound care. (5) Diabetes: Code(s): E11.9 - Type 2 diabetes mellitus without complications Category: Medical Qualifiers: Diabetes mellitus type: type 2 Diabetes mellitus threading machine feeder automatic insulin use: with threading machine feeder automatic use Diabetes mellitus complication status: with hyperglycemia Qualified Code(s): E11.65 - Type 2 diabetes mellitus with hyperglycemia; Z79.4 - senior living (current) use of insulin Plan: Controlled. Evaluate for any hypoglycemia that could be contributing to syncope and falls. Continue following with endocrinology. (6) Cataracts, bilateral: Code(s): H26.9 - Unspecified cataract Category: Medical Plan: With ocular headaches. Vision changes ongoing since her 1st surgery. Advised to schedule ophthalmology appointment sooner. Plan Follow-up in the office following ED visit >45 minutes interviewing/examing patient with multiple complaints including lightheadedness with episode in office which requires further immediate evaluation in ED given further assessment cannot be completed in the office. Expect call placed to ED and discussed with family. Orders: Orders XR Knee Berry 3V Today M17.0 - Bilateral primary osteoarthritis of knee, R29.898 - Other symptoms and signs involving the musculoskeletal system AMB EKG-In Office Today R55 - Syncope and collapse Referrals Orthopedics Referral M17.0 - Bilateral primary osteoarthritis of knee, R26.81 - Unsteadiness on feet, R29.898 - Other symptoms and signs involving the musculoskeletal system Wound Care Referral L89.302 - Pressure ulcer of unspecified buttock, stage 2 Medications: New diclofenac sodium 1% apply to knees QID prn 4 grams topical QID 100 grams 1RF lidocaine 5% leave on most painful area for up to 12 hrs 2 patches topical DAILY 30 ea 2RF
[2025-01-31 13:21] VITALS: PULSE 84; RESP 17; TEMP 36.2; O2SAT 97
--- OUTSIDE RECORDS SUMMARY | 2025-01-31 14:28 | XMS_ITS | Clinical Summary ---
Author Organization [facility] Address [address] [place] [address] Phone Care Team Providers Care Dress Marker Name Role Phone Tavo Huber MD Primary Care Provider [phone] Allergies Active Allergy Reactions Criticality Noted Date [...] [place] [facility] Medicaid Care Teams Dress Marker Relationship Specialty Start Date End Date Tavo Huber MD [address] [place] [address] [id number] [place] PCP - General 07/30/20
--- OUTSIDE RECORDS SUMMARY | 2025-01-31 14:28 | XMS_ITS | Data Portability ---
Author Organization [facility], Main Office Address [address], [address] [place] [address] Care Team Providers Care Manager Apple Name Role Phone SISI WATSON Primary Care Provider [facility] OTHER Assessment Encounter Date Assessment Date Assessment LastModified by Organization Details LastModified Time 11/17/2022 11/17/2022 11/13/22 wbc 11.9, hgb 9.9, plt 226, na 140, k 4.9, bun 103, creat 3.30, LFTs normal [email or web address] Not available 11/17/2022 13:30:40 11/24/2022 11/24/2022 11/13/22 [...] Recorded Time Chronic kidney disease stage 3A 156138650 Active 2022 Andi Mejia MD [address], [address], [place], [address], [facility] 3 09:24:07 Morbid obesity 109447939 Active 2022 Andi Mejia MD [address], [address], [place], [address], [employer] 3 09:29:42 Chronic combined systolic and diastolic heart failure 1289078308218 00 Active 2022 Andi Mejia MD [address], [address], [place], [address], [facility] 3 09:29:52 Nonischemic congestive cardiomyopa thy 642094860292 Active 2022 Andi Mejia MD [address], [address], [place], [address], [facility] 3 09:30:08 Anxiety 66295197 Active 2022 Andi Mejia MD [address], [address], [place], [address], [facility] 3 09:30:15 Depressive disorder 48156956 Active 2022 Andi Mejia MD [address], [address], [place], [address], [facility] 3 09:30:19 Asthma 647506918 Active 2022 Andi Mejia MD [address], [place], [address], [facility] 3 09:30:26 Chronic pain 08864590 Active 2022 Andi Mejia MD [address], [place], [address], [facility] 3 09:30:32 Chronic constipatio n 004771946 Active 2022 Andi Mejia MD [address], [place], [address], [facility] 3 09:30:40 Chronic obstructive pulmonary disease 57580557 Active 2022 Andi Mejia MD [address], [address], [place], [address], [facility] 3 09:30:44 Diabetic peripheral neuropathy 139050024 Active 2022 Andi Mejia MD [address], [place], [address], [place] [facility] 3 09:30:56 Diabetes mellitus 09945355 Active 2022 Andi Mejia MD [address], [place], [address], [facility] 3 09:31:01 Mixed hyperlipide matilda 445628772 Active 2022 Andi Mejia MD [address], [address], [place], [address], [facility] 3 09:31:09 Essential hypertensio n 00339729 Active 2022 Andi Mejia MD [address], [address], [place], [address], [facility] 3 09:31:15 Obstructive sleep apnea syndrome 89501799 Active 2022 Andi Mejia MD [address], [address], [place], [address], [facility] 3 09:31:20 Panic disorder 389720558 Active 2022 Andi Mejia MD [address], [address], [place], [address], [facility] 3 09:31:26 Coronary arterioscle rosis 47731258 Active 2022 Andi Mejia MD [address], [place], [address], [facility] 3 09:31:30 Chronic kidney disease stage 4 030557711 Active 2022 Carolina Dennis MD [address], [place], [address], [facility] 3 18:36:56 Acute hyponatremi a 2159388 Active 2022 Carolina Dennis MD [address], [address], [place], [address], [facility] 3 18:43:11 Asthenia 61963044 Active 2022 Carolina Dennis MD [address], [address], [place], [address], [facility] 3 18:43:57 Problem Notes None recorded. Medical Equipment None Reported. Allergies Allergen ID Allergen Name Allergen Category Reaction Reaction Severity Criticality Documentation Date Start Date Code Code System Note Provider Name and Address Organization Details Recorded Time 68874 ibuprofen medicatio n Not available Not available Not available 10/08/2022 5640 RxBlake Mejia MD [address], [address], [place], [address], [facility] 3 09:16:39 86054 Tylenol medicatio n Not available Not available Not available 10/08/2022 3 RxBlake Mejia MD [address], [address], [place], [address], [facility] 3 09:16:43 44373 morphine medicatio n Not available Not available Not available 10/08/2022 7052 Magdaleno Mejia MD [address], [address], [place], [address], [facility] 3 09:16:48 Medications Name Sig Start Date [...] Heart rate Respiratory rate Body temperature Systolic And Diastolic Provider Name and Address Organization Details Last Updated DateTime 11/17/2022 70 /min 18 /min 97.9 [degF] 124/70 mm[Hg] CHAKA Hawkins [address], [address], [place], [address], [facility] 3 07:57:14 Date Recorded Heart rate Respiratory rate Body temperature Oxygen saturation Oxygen saturation in Arterial blood by Pulse oximetry Provider Name and Address Organization Details Last Updated DateTime 3 74 /min 16 /min 97.8 [degF] 96 % 96 % PEDRO MONAE NP [address], [address], [place], [address], [facility] 3 15:33:19 Date Recorded Body weight Body mass index (BMI) Body height Heart rate Respiratory rate Body temperature Oxygen saturation Oxygen saturation in Arterial blood by Pulse oximetry Systolic And Diastolic Provider Name and Address Organization Details Last Updated DateTime 3 523611. 54 g 44.6 kg/m2 157.48 cm 80 /min 18 /min 97.6 [degF] 96 % 96 % 148/82 mm[Hg] Carolina Dennis MD [address], [address], [place], [address], [facility] 3 18:00:03 Social History Question Answer Notes LastModified by Organizat ion Details LastModified Time Tobacco Smoking Status Former Smoker quit 1999 30+ pack year hx Andi Mejia MD [address], [address], [place], [address], [facility] 10/08/2022 11:59:39 Do You Have An Advance Directive? Yes Information not available 10/08/2022 What Is Your Code Status? Full Code Information not available 10/08/2022 Where Do You Live? Apartment Information not available 11/24/2022 Legal Guardian? No Information not available 11/24/2022 Do You Have A Medical Power Of [employer]? Yes Information not available 11/24/2022 What Was The Date Of Your Most Recent Tobacco Screening? 11/24/2022 Information not available 11/24/2022 Do You Have An Out Of Hospital DNR? No Information not available 11/24/2022 Has Tobacco Cessation Counseling Been Provided? No N/a As Pt No Longer Smokes Information not available 11/24/2022 How Many Years Have You Smoked Tobacco? 30 Information not available 11/24/2022 Sex: Unknown Functional Status Question Answer Note LastModified by Organizat ion Details LastModified Time Do you use any illicit or recreational drugs? No Information not available 11/24/2022 Do you or have you ever used any other forms of tobacco or nicotine? No Information not available 11/24/2022 What is your level of alcohol consumption? None Information not available 10/08/2022 Mental Status None recorded. Family History Relationship Description Onset Age of this Age Resolved Age Notes LastModified by Organization Details LastModified Time Mother Diabetes mellitus [email or web address] Not available 2022 09:18:22 Father Diabetes mellitus Not available 2022 09:18:35 Father Hypertensive disorder Not available 2022 09:18:43 Medical History No medical history recorded. Gynecological HistoryNo gynecological history recorded. Obstetrics History GPAL:G 0 P 0 0 0 0 Immunizations Vaccine Type Date Status Note Provider Nam e and Address Organization Details Recorded Time pneumococcal polysaccharide PPV23 7 completed [facility] 09/23/2023 15:30:16 pneumococcal polysaccharide PPV23 2 completed Zoila [facility] 09/23/2023 15:31:52 Past Encounters Encounter ID Performer Location Encounter Start Date Encounter Closed Date Diagnosis/Indication Diagnosis SNOMED-CT Code Diagnosis ICD10 Code Diagnosis Note [id number] Andi Mejia MD [facility] on [address] [place] [address] 10/08/2022 09:16:00 10/13/2022 13:18:32 Acute kidney injury 71233177 N17.8 ARF on CRF stage 3 at baseline however appear to be stage 4improved with IVFmonitor renal functionav oid nephrotoxi c meds as ablenephro consult Chronic ki dney disease stage 3A 905108474 N18.31 carrying dx of crf stage 3 however appear stage 4 Asthenia 47273776 R53.1 severe deconditio ningPT OT eval and treatmonit or need for increased services in community vs need to transition to LTC Acute hyponatremia 29510 02 E87.1 Wl=355 in hospitalre peat bmp and monitor lytes Morbid obesity 097701902 E66.01 dietary to eval Chronic co mbined systolic and diastolic heart failure 1291376487 06197 I50.42 bumex 2 mg qam 1 mg qpmspirono lactone 25 mg bidmonitor respirator y and fluid statusmoni tor renal function with recent arf on crf Nonischemi c congestive cardiomyopathy 8539192620 04 I42.0 added to PMHcontinu e current meds Anxiety 22576391 F41.1 fluoxetine 40 mg qdrisperda l 1 mg bid question dx of bipolarto contact PCP for full dx listpsych to evalmonito r for behaviors Asthma 981975790 J45.99 8 at baselineal buterol MDI prn Depressive disorder 3548 9007 F33.8 see above Chronic pain 82414430 G8 9.29 gabapentin 400 mg tidoxycodo ne 5 mg q 6 prnmonitor for effect Chronic constipation 236 754643 K59.09 bowel protocol Chronic ob structive pulmonary disease 14689439 J41.1 carrying dxadded to PMHmonitor respirator y status Diabetic p eripheral neuropathy 927380127 E11.42 gabapentin 400 mg tidmonitor for effect Diabetes mellitus 415924 09 E11.21 lantus 50 units bidSS insulinmon itor blood glucose and need to titrate Mixed hyperlipidemia 267 466698 E78.2 simvastati n 20 mg qdcontinue d Essential hypertension 32444467 I10 appears to have difficult to control htn current onbumex 2 mg qam 1 mg qpmspirono lactone 25 mg bidmetopro lol 50 mg qdnorvasc 5 mg qdimdur 30 mg qdhydralaz ine 25 mg bidmonitor bp and need to titrate Obstructiv e sleep apnea syndrome 40324801 G47.33 carrying dx added to PMH Panic disorder 537697972 F41.0 see aboveon risperdalp sych to eval Coronary arteriosclerosis 83399314 I25.10 metoprolol 50 mg qdASA 81 mg qdsimvasta tin 20 mg qdcontinue d [id number] AHSAN MCCONNELL NP [facility] on [address] [place] [address] 10/14/2022 11:46:11 10/16/2022 16:00:13 Acute kidney injury 88796184 N17.8 ARF on CRF stage 3 at baseline however appear to be stage 4improved with IVFmonitor renal function - check CMP in am x 1avoid nephrotoxi c meds as able; is on diureticsn ephro consult prn Chronic ki dney disease stage 3A 575071224 N18.31 carrying dx of crf stage 3 however appear stage 4 Asthenia 08723577 R53.1 severe deconditio ningPT OT eval and treatmonit or need for increased services in community vs need to transition to LTC Acute hyponatremia 33388 02 E87.1 Cp=091 in hospitalCM P x 1 in am Morbid obesity 331627133 E66.01 dietary to evalChange diet from regular to carb control Chronic co mbined systolic and diastolic heart failure 1937390094 62829 I50.42 bumex 2 mg qam 1 mg qpmspirono lactone 25 mg bidmonitor respirator y and fluid statusmoni tor renal function with recent arf on crf - CMP in am Nonischemi c congestive cardiomyopathy 7398392618 04 I42.0 added to PMHcontinu e current meds Anxiety 02007397 F41.1 fluoxetine 40 mg qdrisperda l 1 mg bid question dx of bipolarto contact PCP for full dx list - re-request edpsych to cassie mccain for behaviors Asthma 816689859 J45.99 8 at baselineal buterol MDI prn Depressive disorder 3548 9007 F33.8 see above Chronic pain 64121892 G8 9.29 gabapentin 400 mg tidoxycodo ne 5 mg q 6 prnmonitor for effect Chronic constipation 236 310493 K59.09 Add senna-s 2 tabs dailybowel protocolMo nitor and adjust as needed Chronic ob structive pulmonary disease 94089383 J41.1 carrying dxadded to PMHmonitor respirator y status Diabetic p eripheral neuropathy 730057020 E11.42 gabapentin 400 mg tidmonitor for effect Diabetes mellitus 356877 09 E11.21 lantus 50 units bidSS insulinmon itor blood glucose and need to [id number] x 1 in am Mixed hyperlipidemia 267 136906 E78.2 simvastati n 20 mg qdCMP, lipids x 1 in amcontinue d Essential hypertension 74179205 I10 appears to have difficult to control htn current onbumex 2 mg qam 1 mg qpmspirono lactone 25 mg bidmetopro lol 50 mg qdnorvasc 5 mg qdimdur 30 mg qdhydralaz ine 25 mg bidmonitor bp and need to titrate Obstructiv e sleep apnea syndrome 95301400 G47.33 carrying dx added to PMH Panic disorder 549557891 F41.0 see aboveon risperdalp sych to eval Coronary arteriosclerosis 49297575 I25.10 metoprolol 50 mg qdASA 81 mg qdsimvasta tin 20 mg qdcontinue d [id number] Andi Mejia MD [facility] on [address] [place] [address] 10/22/2022 15:37:47 10/24/2022 12:17:55 Chronic kidney disease stage 3A 706365286 N18.31 carrying dx of crf stage 3 however appear stage 4monitor renal functionla bs ordered for tomorrow then q tuesdaysav oid nephrotoxi c meds as ablerefer to nephrowill attempt voiding trial in am with bladder scan q shift and straight cath if > 300cc Asthenia 43222926 R53.1 improving with therapynow able to ambulate up to 100 feet with walker with contact guardmonit or need for increased services in community vs need to transition to LTC Acute hyponatremia 79989 02 E87.1 Rt=481 in [facility] bmp and monitor lytesorder ed for tomorrow Chronic co mbined systolic and diastolic heart failure 2386508514 97708 I50.42 bumex 2 mg qam 1 mg qpmspirono lactone 25 mg bidmonitor respirator y and fluid statusmoni tor renal function with recent arf on crf Essential hypertension 19140203 I10 bumex 2 mg qam 1 mg qpmspirono lactone 25 mg bidmetopro lol 50 mg qdnorvasc 5 mg qdimdur 30 mg qdhydralaz ine 25 mg bidmonitor bp and need to titrate [id number] CHAKA Hawkins [facility] on [address] [place] [address] 10/27/2022 11:28:29 10/29/2022 10:44:01 Acute constipation 972052595 K59.09 xray of abdomen for unknown amount [...] d Chronic ki dney disease stage 3A 889394823 N18.31 bun/creat remains elevated, though lab results as above slightly better on 10/23/22avoi d nephrotoxi c meds as ablerefer to nephro - 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 logging operator Acute hyponatremia 08416 02 E87.1 Na 139 on 10/23/22labs weekly on Tuesdays Chronic co mbined systolic and diastolic heart failure 0505905662 60701 I50.42 compensate dbumex 2 mg q am, 1 mg q pmspironol actone 25 mg bidmonitor fluid statusmoni tor renal function as above Essential hypertension 21129748 I10 ortho BPs bid x 3 dayswill dc hydralazin e 25 mg bid nowbumex 2 mg q am, 1 mg q pmspironol actone 25 mg bidmetopro lol 50 mg qdnorvasc 5 mg qdimdur 30 mg qdmonitor bp and need to titrate [id number] Andi Mejia MD [facility] on [address] [place] [address] 10/28/2022 12:36:51 10/30/2022 15:40:26 Panic disorder 866276957 F41.0 appears to be experienci ng panic attackvita l stablestar t ativan 0.5 mg q 4 may repeat in 30 min for effectscri pt and e kit script writtento ED for acute decompensa tionof note labs were ordered for today however not drawn [id number] Andi Mejia MD [facility] on [address] [place] [address] 10/31/2022 11:44:27 11/03/2022 16:09:35 Orthostatic hypotension 78918246 I95.1 with therapy stating bp dropped to 80's/40's when standing Essential hypertension 32310670 I10 see abovebumex 2 mg qam 1 mg qpmspirono lactone 25 mg bidmetopro lol 50 mg qd(norvasc 5 mg qd now discontinu ed)imdur 30 mg qdhydralaz ine 25 mg bidmonitor bp and need to titrate Pain of le ft shoulder joint 3275781263 9422481 M25.512 probable underlying OAx ray orderedawa it results Panic disorder 185205657 F41.0 patient now much improved and back to baselinemo nitor need to titrate ativan [id number] EPIFANIO CHEN [facility] on [address] [place] [address] 11/13/2022 13:45:01 11/18/2022 16:00:29 Essential hypertension 83311616 I10 continue bumex 2 mg qam 1 mg qpmspirono lactone 25 mg bidmetopro lol 50 mg qdimdur 30 mg qdhydralaz ine 25 mg bidmonitor bp and need to titrate Chest pain 57868656 R07. 9 see HPIno changes to plan of care despite elevated D dimer and tropnot felt to be pleuriticO rdered prn nitro for chest pain Chronic ki dney disease stage 3A 404939869 N18.31 likely moving to end stage with creat of 103 and bun 3.30encour age PO fluidsavoi d nephrotoxi c meds Anxiety 96226987 F41.1 ativan 0.5 mg q 4 hours PRNcontinu e [id number] CHAKA Hawkins [facility] on [address] [place] [address] 11/17/2022 07:53:39 11/19/2022 11:29:11 Chest pain 76598346 R07.9 no chest pain while in ED last night and EKG reassuring no changes to plan of care despite elevated D dimer and tropnot felt to be pleuriticp rn nitro available for chest pain Essential hypertension 98499881 I10 bp normalbume x 2 mg q am, 1 mg q pmspironol actone 25 mg bidmetopro lol 50 mg qdimdur 30 mg qdmonitor bp and adjust meds prn Chronic ki dney disease stage 3A 998054915 N18.31 likely moving to end stage with creat of 103 and bun 3.30encour age PO fluidsavoi d nephrotoxi c medsmonito r renal functionre jerry to nephro if pt and family agree Pain of le ft shoulder joint 1949973028 6907384 M25.512 is chronicno fracture on xray in ED though does have osteophyte s and joint space narrowingc ontinue tizanidine 4 mg qhs 20790220 PEDRO MONAE NP [facility] on [address] [place] [address] 11/18/2022 14:37:50 11/20/2022 14:56:24 Chronic combined systolic and diastolic heart failure 3381474620 33645 I50.42 compensate d bumex 2 mg q am, 1 mg q pm spironolac tone 25 mg bid monitor fluid status monitor renal function Anxiety 78769755 F41.1 ativan 0.5 mg q 4 hours PRNpsych prn [id number] Carolina Dennis MD [facility] on [address] [place] [address] 11/24/2022 17:49:54 11/28/2022 12:00:50 Chronic combined systolic and diastolic heart failure 4363901658 35129 I50.42 Appears euvolemic. Continue metoprolol 50 mg qd, bumex 2 mg q am and 1 mg q pm and spironolac tone 25 mg BIDMay need to decrease diuretics depending on renal functionMo nitor resp. status, fluid status, wts and labs. Anxiety 07925154 F41.1 Continue fluoxetine 30 mg qd and lorazepam 0.5 mg q 4 hrs prn.Monito r mood.Psych following. Essential hypertension 13189138 I10 Last check borderline , but otherwise good.Katherin nue bumex 2 mg q am and 1 mg q pm, spironolac tone 25 mg BID, metoprolol 50 mg qd, and imdur 30 mg qd.BP not being checked regularly, will order for M&F.Monito r BP and labs. Pain of le ft shoulder joint 9019305159 3116973 M25.512 Chronic pain with evidence of moderately severe OA per xray.With allergies to APAP, ibuprofen and morphine.W ill continue oxycodone 5 mg q 6 hrs prn.Will use ice, heat and PT and consider referral for steroid injection. Orthostati c hypotension 79223982 I95.1 Happened one time with rehab.No further episodes.M onitor. Acute constipation 9006 K59.09 Improved on increased bowel regimen.Co ntinue bowel meds as ordered.Mo nitor bowel function. Acute hyponatremia 40474 02 E87.1 No labs since 11/13, will reorder weekly labs. Asthenia 00038903 R53.1 Remains deconditio sissy.Contin ues to need PT/OT for strengthen ing, balance, gait training, safety and function.C ontinue fall precaution s.Monitor for safety.Mon itor for needs in terms of outpt services versus LTC. Morbid obesity 515673919 E66.01 Continue to encourage healthy eating.Mon itor. Asthma 097825647 J45.99 8 As above. Depressive disorder 3548 9007 F33.8 see above Chronic pain 77395293 G8 9.29 With renal failure rec for gabapentin is qd.Will change to gabapentin 600 mg qd and continue tizanidine 4 mg qhs, and oxycodone 5 mg q 6 prnMonitor sxs Chronic ob structive pulmonary disease 13703580 J41.1 Combined obstructiv e and restrictiv e disease per PFTS in past.Katherin nue Flovent 110 mcg 2 puffs BID, and albuterol HFA 2 puffs q 4 hrs prn.Monito r resp status. Diabetic p eripheral neuropathy 380228445 E11.42 As above Diabetes mellitus 417744 09 E11.21 Sugars in good control since here. HgA1C was 8.5 in 3Cont inue lantus 50U BID and SSI.Monito r fingerstic ks TID and HgA1C q 3 months. Mixed hyperlipidemia 267 582807 E78.2 Continue simvastati n 20 mg qdMonitor labs yearly Obstructiv e sleep apnea syndrome 08144413 G47.33 Not on CPAP.Consi jo-ann sleep study. Coronary arteriosclerosis 16040505 I25.10 No recent sxs (recent chest pain not thought to be cardiac.)C ontinue meds as above.F/U with cardio prn. Chronic ki dney disease stage 4 542780262 N18.4 No labs since 11/13.With severely elevated BUN.Will order labs for tomorrow.N eeds renal consult.Wi ll be real balancing act with management of CHF and CKD. [id number] Andi Mejia MD [facility] on [address] [place] [address] 11/26/2022 14:50:28 11/28/2022 12:50:15 Acute kidney injury 67102042 N17.8 ARF on CRF stage 3 at baseline however appear to be stage 4improved with IVFmonitor renal functionav oid nephrotoxi c meds as ablenephro consult Chronic ki dney disease stage 3A 641757914 N18.4 see HPImonitor renal function on bumex and spironolac tone for CHFrepeat bmp at f/u with pcp Asthenia 76416298 R53.1 will need 24 hour supervisio n now in place in community Chronic co mbined systolic and diastolic heart failure 2654677606 43856 I50.42 bumex 2 mg qam 1 mg qpmspirono lactone 25 mg bidmonitor respirator y and fluid statusmoni tor renal function with recent arf on crf Coronary arteriosclerosis 84014546 I25.10 metoprolol 50 mg qdASA 81 mg qdsimvasta tin 20 mg qdcontinue d Health Concerns Section Related Observation LastModified by Organization Detai ls LastModified Time None Recorded Concern Status LastModified by Organization Details LastModified Time None Recorded Advance Directives Directive Y: Payers Insurance Date Sequence Insurance Name Policy Number Policy Drake Covered Member ID Drake Member ID Guarantor Name 12/25/2023 1 [place] [employer] [id number] Lupis Mueller Notes Date Note Type Note [...] She appears very anxious. EPIFANIO CHEN [address], [address], [place], [address], [facility] 11/13/2022 14:07:45 3 text/html pt seen today for acute telemedicine visit. last night pt called 911 and sent herself out to [facility] ED stating per nurse that [...] to SNF for rehab. CHAKA Hawkins [address], [address], [place], [address], [facility] 11/17/2022 13:34:21 3 text/html seen today for acute rounding visit, CAOx3 in the day room in her wheelchair, she is weepy saying my legs don't work anymore , chatted withher for a few minutes and she calmed, lungs clear, ate well at lunch PEDRO MONAE NP [address], [address], [place], [address], [facility] 11/19/2022 10:31:14 3 text/html This is a 62 yo woman who I am seeing today for a routine MD 60 day reeval rounding visit. She was admitted here on 10/03 after spending several days at the [facility] ED awaiting placement. She had been seen at the [facility] ED several times in the month prior. [...] since she was admitted to this facility. CARDIOVASCULAR TECHNOLOGIST concurs and [facility] records show this also. pt is eating 75-100% of all her meals. currently on senna 2 qhs and colace daily. pt is making progress with rehab, walking up to 165 feet. ghotra cath recently removed and pt is voiding normally. Carolina Dennis MD [address], [address], [place], [address], [facility] 11/24/2022 20:21:29 3 text/html Patient is a [...] home. Will require 24/7 supervision with VNA, BENCH ASSEMBLER and meals on wheels in place, will be living with daughter. Discussed with SW. Of note labs were ordered yesterday, called labs for result with significant improvement in bun/cre Andi Mejia MD [address] [place] [address], [address], [place], [address], [facility] - [employer] 11/26/2022 14:57:47 OBGyn Episode No OBEpisode recorded.
--- OUTSIDE RECORDS SUMMARY | 2025-01-31 14:28 | XMS_ITS | Clinical Summary ---
Author Organization [facility] Address [address] [place] [address] Phone Care Team Providers Care Inspector Watch Parts Name Role Phone Tavo Huber MD Primary Care Provider [phone] Allergies No known active allergies Social History [...] patient's age to complete this topic Insurance [facility] Advance Directives Documents on File Type Date Recorded Patient Stations Superintendent Expl anation Health Care Decision (hx) 02/25/2022 [...] (hx) 10/14/2020 AD GARCIA DIRECTIVE Care Teams Inspector Watch Parts Relationship Specialty Start Date End Date Tavo Huber MD [address] [place] [address] Dr Anjelica MA PCP - General Internal Medicine 10/09/21
== END 2025-01-31 15:20 | disposition home or self-care (01) ==
LOC: HO.HMCHD 13:09
PROVIDERS: Visit Provider Physician Assistant
DX: R55 Syncope and collapse (principal); L89.302 Pressure ulcer of unspecified buttock, stage 2; E11.65 Type 2 diabetes mellitus with hyperglycemia; Z79.4 Long term (current) use of insulin; M47.816 Spondylosis without myelopathy or radiculopathy, lumbar region; M17.0 Bilateral primary osteoarthritis of knee; H26.9 Unspecified cataract

== ENCOUNTER 2025-01-31 15:10 | Inpatient (IN) | payer OTHER, SELFPAY ==
[2025-01-31 15:16] VITALS: BP 137/83; PULSE 83; RESP 18; TEMP 36.8; O2SAT 95; BMI 49.9
--- NOTE | 2025-01-31 15:16 | ED_ITS ---
HPI - Dizziness General Chief Complaint: Dizziness Stated Complaint: Dizziness Time Seen by Provider: 01/31/25 20:37 Source: patient and family Mode of arrival: ambulatory Limitations: no limitations History of Present Illness ED Provider: Mic BUTCHER HPI Narrative: The patient is a 64-year-old female with history of COPD, CHF, diabetes with diabetic neuropathy, vertigo, DANIEL, hypertension, obesity, BPPV, and decubitus ulcers presenting to the ED for evaluation of intermittent dizziness upon standing. Patient reports she often has dizziness upon standing however experienced this while at her PCP office prompting referral to the ED. The patient reports she has been experiencing 2 weeks of watery brown nonbloody diarrhea without associated fever/chills, nausea, vomiting, abdominal pain, chest pain, or recent trauma. The patient reports she suffered a syncopal episode upon standing 2 days ago but did not suffer any injury and thus did not present to the ED for evaluation. The patient in the ED is highly anxious, tearful, stating she has not had her nighttime medications for anxiety. The patient appears agitated and upset stating her family forced her to go to the doctor's office for evaluation. The patient in the ED denies any active chest pain, shortness of breath, abdominal pain, headache, dizziness at rest, focal neurological deficit, nausea, or other acute somatic complaint. Related Data Home Medications ?Medication ?Instructions ?Recorded ?Confirmed aspirin 81 mg tablet,delayed 81 mg PO DAILY 11/23/20 0 07/25/24 release fluticasone propionate 110 2 puff inhalation BID 11/2307/25/24 mcg/actuation HFA aerosol inhaler (Flovent HFA) simvastatin 20 mg tablet 20 mg PO BEDTIME 11/23/20 insulin syringe-needle U-100 1 mL 09/27/22 07/25/24 31 gauge x 5/16 (BD Insulin Syringe Ultra-Fine) duloxetine 30 mg capsule,delayed 30 mg PO QAM 09/21/23 07/25/24 release meclizine 25 mg tablet 25 mg PO TID PRN Vertigo 11/1007/25/24 metoprolol succinate 50 mg 50 mg PO DAILY 09/21/2301/11 tablet,extended release 24 hr prazosin 1 mg capsule 1 mg PO BEDTIME 09/21/2301/11 buspirone 30 mg tablet 30 mg PO BID 01/31/25 ketorolac 0.5 % eye drops 1 drp ophthalmic (eye) TID 0 01/31/25 Previous Rx's ?Medication ?Instructions ?Recorded hydralazine 25 mg tablet 25 mg PO BID #60 tabs blood-glucose meter (FreeStyle #1 ea 09/02/22 Lite Meter kit) benzonatate 200 mg capsule 200 mg PO TID PRN cough #20 caps 11/09/23 BD Insulin Syringe (half unit) 0.3 #400 ea 04/27/24 mL 31 gauge x 12/02 (insulin syr/ndl U100 half dionna) FreeStyle Lucy 3 [place] #1 ea 04/27/24 (blood-glucose,food service representative,cont) furosemide 40 mg tablet (Lasix) 40 mg PO BID #20 tabs 04/27/24 isosorbide mononitrate 30 mg 60 mg (2 x 30 mg) PO DUKE Y #180 04/27/24 tablet,extended release 24 hr tabs sertraline 25 mg tablet 75 mg (3 x 25 mg) PO DAILY # 270 04/27/24 tabs FreeStyle Lancets 28 gauge #200 ea 06/01/24 (lancets) FreeStyle Lite Strips (blood sugar #200 ea 06/01/24 diagnostic) pen needle, diabetic 32 gauge x #200 ea 06/01/2412/02 (Comfort EZ Pen [place]) Comfort EZ Pen [place] 31 gauge x #200 ea 06/02/2412/02 (pen needle, diabetic) insulin lispro 100 unit/mL 4 unit subcut TID #10 mL subcutaneous solution (Humalog U-100 Insulin) lorazepam 0.5 mg tablet 0.5 mg PO TID PRN anxiety #9 0 tabs 08/03/24 pantoprazole 20 mg tablet,delayed 20 mg PO BEDTIME 90 days #90 tabs 08/03/24 release trazodone 50 mg tablet 100 mg (2 x 50 mg) PO BEDTIM E #90 08/03/24 tabs ADULT PULL UP XL #360 ea 08/24/24 Alcohol Prep Pads (alcohol swabs) 1 pad topical QID #2 00 ea 08/24/24 Chux #200 ea 08/24/24 Commode bags #4 ea 08/24/24 nitrile gloves #360 ea 08/24/24 pressure relief cushion #1 ea 08/24/24 insulin syringe-needle U-100 1 mL #200 ea 09/20/24 31 gauge x 5/16 (BD Insulin Syringe Ultra-Fine) pen needle, diabetic 32 gauge x #1,200 ea 09/28/24 5/32 gabapentin 400 mg capsule 400 mg PO BID@0900,1500 #180 caps 12/19/24 FreeStyle Lucy 3 Sensor #6 ea 12/28/24 (blood-glucose sensor) Zepbound 5 mg/0.5 mL subcutaneous 5 mg (0.5 mL) subcut QWEEK #6 mL 12/28/24 pen injector (tirzepatide (weight loss)) insulin glargine 100 unit/mL (3 50 unit (0.5 mL) subcu t DAILY #45 12/28/24 mL) subcutaneous pen (Lantus mL Solostar U-100 Insulin) linaclotide 290 mcg capsule 290 mcg PO DAILY #90 caps 12/28/24 (Linzess) diclofenac sodium 1 % topical gel 4 g topical QID #100 grams 01/31/25 lidocaine 5 % topical patch 2 patch topical DAILY #30 ea 01/31/25 Allergies Allergy/AdvReac Type Severity Reaction Status Date / Time ibuprofen Allergy Intermediate vomiting, Verified 01/31/25 15:18 itching acetaminophen (Tylenol) Allergy Unknown Unknown Verified 01/31/25 15:18 codeine AdvReac Severe Anaphylaxis Verified 01/31/25 15:18 morphine AdvReac Intermediate vomiting Verified 01/31/25 15:18 vancomycin AdvReac Intermediate Itching Verified 01/31/25 15:18 Review of Systems 2 Review of Systems: Yes all other systems are reviewed and are negative PMFSH Past Medical History Medical History Cataracts, bilateral DANIEL (obstructive sleep apnea) COPD (chronic obstructive pulmonary disease) NICM (nonischemic cardiomyopathy) Hypertension Mood disorder Elevated d-dimer FELICIA (acute kidney injury) Abdominal pain Constipation Chronic respiratory failure with hypoxia Stercoral colitis Decubitus ulcer Hypoxia CHF exacerbation MDD (major depressive disorder), recurrent episode, moderate Adjustment disorder with mixed anxiety and depressed mood Panic disorder Cellulitis of right lower extremity Stasis dermatitis of both legs Asthma Hyperglycemia due to diabetes mellitus Congestive heart failure Obesity hypoventilation syndrome CKD (chronic kidney disease) stage 3, GFR 30-59 ml/min Acute on chronic combined systolic and diastolic CHF (congestive heart failure) Morbid obesity Diabetic neuropathy, painful Chronic pain High cholesterol Depression Diabetes Surgical History History of surgery Hx of cholecystectomy Family History Family History Mother HTN (hypertension) Diabetes CAD (coronary artery disease) Father HTN (hypertension) Diabetes CAD (coronary artery disease) Maternal Grandmother CAD (coronary artery disease) Social History Social History Household Members: None Household Members Other:: GRANDSON Housing: Condominium Housing Other:: with humidifier attendant Do you presently have visiting [facility] or other [facility] Unable to assess alcohol history related to: Unknown Alcohol intake: current Alcohol intake frequency: holidays/special occasions only Alcohol type: wine Comment: 1:1 Patient Tobacco Use Status: Former Tobacco user Tobacco use type: Cigarette Years Smoked: 38 Smoked in Last 30 Days: No e-Cigarette/Vaping Use: Never Used Second Hand Smoke Exposure: No Use of substances other than those prescribed or required for medical reasons: Unknown Substance Use Type: Former Substance User Advance Directives: Yes Advance Directives on File: Yes Advance Directives Date on File: 04/30/23 Do you have a plan to hurt others: No Plan Patient : No service: No Current occupational status: disabled Current occupation: rt handed Cognitive needs: Yes (walker, cane) Hearing needs: No Vision needs: Yes (Rx glasses) Physical Exam 2 Vital Signs: Vital Signs: Last Vital Signs Temp 97.9 F 02/01/25 03:38 Pulse 89 02/01/25 03:38 Resp 19 02/01/25 03:38 BP 164/72 H 02/01/25 03:38 Pulse Ox 95 02/01/25 03:38 O2 Del Method Room Air 02/01/25 03:38 BMI result Body Mass Index 49.9 CONSTITUTIONAL: The patient appears agitated, anxious, tearful, but otherwise non-toxic, well nourished and in no acute distress. Vital signs as documented. HEAD: Atraumatic, normocephalic. EYES: EOMs grossly intact, pupils equal, conjunctiva clear, no exudate. ENT: Nares patent, no discharge. Airway patent, no audible stridor, visible mucosa is pink and moist without noted lesions. NECK: Trachea is midline, no obvious masses or gross abnormalities. CHEST: Symmetric movement, normal appearance. LUNGS: LS present and CTAB, no w/r/r. Non-labored work of breathing. CARDIAC: Regular Rhythm, S1/S2 appreciated, no murmurs, rubs or gallops. ABDOMEN: Abdomen soft and non-tender x4 quadrants, no palpable masses or organomegaly. : Deferred. EXTREMITIES: Normal tone, moves all extremities spontaneously without reported pain. No obvious acute injury or deformity noted. NEURO: Alert and oriented x3, CN II-XII intact. Cerebellar Functioning intact. No sensory or motor deficits. Speech clear and appropriate. PSYCH: normal affect, appropriate eye contact, fluid speech, with appropriate response to questioning. No reported suicidality or homicidality. SKIN: Warm, dry, color appropriate, normal turgor. No rashes noted. Course Course Course Narrative: 01/31/25 1516 GUADALUPE Watts This is a Rapid Medical Examination (RME) performed by Gene Sahni PA-C in triage. Full HPI, ROS, assessment and treatment plan per primary provider in the Main ED. Hx: 64 yo F here from PCP office for eval of dizziness on standing for weeks. recent syncope d/t this. PCP was unable to get a blood pressure, sent here for further eval. on lasix - no recent med adjustments. PE/vitals: vitals stable. Plan: labs, ekg, orthos Medications Administered Discontinued Medications Generic Name Dose Route Start Last Admin Trade Name Freq PRN Reason Stop Dose Admin Albuterol Sulfate 2.5 mg 01/31/25 21:02 01/31/25 21:22 Albuterol Sulfate (0.083%) 2.5 Mg/3 Ml Vial.Neb INHALE 01/31/25 21:03 2.5 mg ONCE ONE Administration Clonidine HCl 0.1 mg 01/31/25 20:57 01/31/25 21:15 Clonidine Hcl 0.1 Mg Tablet PO 01/31/25 20:58 0.1 mg ONCE ONE Administration Protocol Dextrose 25 gm 01/31/25 20:57 01/31/25 21:57 Dextrose 50 % 25 Gm/50 Ml Syringe IVPUSH 01/31/25 20:58 25 gm ONCE ONE Administration Gabapentin 400 mg 01/31/25 20:57 01/31/25 21:54 Gabapentin 400 Mg Capsule PO 01/31/25 20:58 400 mg ONCE ONE Administration Sodium Chloride 1,000 mls @ 999 mls/hr 01/31/25 21:00 01/31/25 23:20 Ns IV 01/31/25 22:00 Infused .Q1H1M HI Infusion Calcium Gluconate 1 gm in 50 mls @ 50 mls/hr 01/31/25 20:57 01/31/25 23:20 Calcium Gluconate IV 01/31/25 21:56 Infused ONCE ONE Infusion Sodium Chloride 1,000 mls @ 999 mls/hr 02/01/25 02:30 02/01/25 02:36 Ns IV 02/01/25 03:30 999 mls/hr .Q1H1M HI Administration Insulin Human Regular 10 unit 01/31/25 20:57 01/31/25 22:01 Insulin Regular, Human 100 Unit/Ml 10 Ml Vial IVPUSH 01/31/25 20:58 10 unit ONCE ONE Administration Lorazepam 0.5 mg 01/31/25 20:57 01/31/25 21:17 Lorazepam 0.5 Mg Tablet PO 01/31/25 20:58 0.5 mg ONCE ONE Administration Risperidone 1 mg 01/31/25 20:57 01/31/25 21:54 Risperidone 1 Mg Tablet PO 01/31/25 20:58 1 mg ONCE ONE Administration Trazodone HCl 150 mg 01/31/25 20:57 01/31/25 21:17 Trazodone Hcl 50 Mg Tablet PO 01/31/25 20:58 150 mg ONCE ONE Administration Medical Decision Making Medical Decision Making MDM Narrative: 12:20 AM 02/01/2025 (Gene BUTCHER): The patient is a 64-year-old female presenting to the ED for evaluation of recurrent dizziness upon standing which resulted in a syncopal episode 2 days ago, patient was seen at her PCP office today and was sent to the ED for evaluation. Patient arrives to the ED highly anxious and agitated, emotionally upset that family forced her to see her PCP, stating dizziness upon standing is her baseline. The patient denies any active symptoms in the ED, but does report she has been experiencing 2 weeks of recurrent nonbloody diarrhea without vomiting. The patient arrives hemodynamically stable, afebrile. The patient's exam is benign. Patient's laboratory evaluation shows no evidence of leukocytosis or significant anemia. The patient's chemistries show evidence of FELICIA with creatinine 3.50, up from baseline of 1.5 to 2, potassium also elevated at 5.4, no other electrolyte abnormalities, EKG shows no peaked T-waves or other abnormalities, no ischemia. Troponin is negative. The patient was treated for hyperkalemia with albuterol, insulin, dextrose, and FELICIA was treated with IV fluid hydration. Patient states she does not want to be admitted to the hospital, we will repeat BMP to assess for resolution of FELICIA and hyperkalemia, if no improvement in BMP, patient will require admission for FELICIA and hyperkalemia. 1:27 AM 02/01/2025 (Gene BUTCHER): The patient's repeat laboratory evaluation shows improvement in potassium, however there is only minimal improvement in FELICIA, creatinine improved from 3.5 to 2.98. We will discuss admission for FELICIA with the patient. 2:26 AM 02/01/2025 (Gene BUTCHER): After extensive discussion of persistent impaired renal function, patient is reluctanctly agreeable to admission for IV fluid hydration in the setting of FELICIA. Patient will be admitted for FELICIA in the setting of recurrent diarrhea, patient's abdominal exam remains non-tender, no indication for imaging. Admission/Observation Consideration of admission/observation: Escalation of care including admission/observation considered Lab Data MDM Lab Attestation statement: I reviewed the patient's lab results. 01/31/25 15:50 02/01/25 00:25 Labs: Lab Results 01/31/25 02/01/25 Range/Units 15:50 00:25 WBC 9.3 (4.8-10.8) X10*3/uL RBC 3.65 L (4.20-5.50) X10*6/uL Hgb 10.6 L (12.0-16.0) g/dl Hct 35.0 L (37.0-47.0) % MCV 95.9 (80.0-98.0) fL MCH 29.0 (27.0-33.0) pg MCHC 30.3 L (31.0-35.0) g/dl RDW 14.9 (11.0-16.0) % Plt Count 144 L (160-400) X10*3/uL MPV 9.7 (9.4-12.3) fL Immature Gran % (Auto) 0.5 H (0.0-0.4) % Neut % (Auto) 78.3 H (45-73) % Lymph % (Auto) 11.1 L (20-40) % [place] % (Auto) 7.5 (2-11) % Eos % (Auto) 2.5 (0-4) % Baso % (Auto) 0.1 (0-2) % Lymph # (Auto) 1.0 L (1.2-4.9) X10*3/uL [place] # (Auto) 0.7 (0.1-1.2) X10*3/uL Eos # (Auto) 0.2 (0.0-0.4) X10*3/uL Baso # (Auto) 0.0 (0.0-0.2) X10*3/uL Abs Immat Gran (auto) 0.05 H (0.00-0.03) X10*3/uL Absolute Neuts (auto) 7.3 (2.0-8.3) x10*3/uL Absolute Nucleated RBC 0.000 (0.0-0.012) X10*3/uL Nucleated RBC % (auto) 0.0 (0.0-0.2) /100WBC Sodium 144 144 (135-145) mmol/L Potassium 5.4 H D 4.4 (3.3-5.1) mmol/L Chloride 107 111 H (96-108) mmol/L Carbon Dioxide 27 26 (22-29) mmol/L Anion Gap 15 11 L (12-20) BUN 50 H 53 H (9-16) mg/dL Creatinine 3.50 H 2.98 H (0.5-1.4) mg/dL Estim Creat Clear Calc 20.7 24.2 Estimated GFR 13 16 Random Glucose 144 H 162 H (60-115) mg/dL Calcium 8.6 8.2 L (8.4-10.2) mg/dL Magnesium 2.1 (1.6-2.6) mg/dL Total Bilirubin 0.3 (0.0-1.0) mg/dL AST 14 (5-31) U/L ALT < 6 (0-31) U/L Alkaline Phosphatase 109 (39-117) U/L Troponin I High Sens 11.2 (<3.5-17.0) ng/L B-Natriuretic Peptide 42 (<100) pg/mL Total Protein 6.5 (6.5-8.0) g/dL Albumin 4.1 (3.5-5.0) g/dL TSH 0.82 (0.32-4.0) uIU/mL Independent Interpretation I performed an independent interpretation of an: EKG (EKG shows sinus rhythm with a rate of 81, no evidence of acute ischemia, no ST elevation, no ectopy. QTC 485. Compared to previous on 12/20/2023 there is resolution of previously noted PVCs.) Discharge Plan Discharge Clinical Impression: FELICIA (acute kidney injury) Diarrhea Qualifiers: Diarrhea type: unspecified type Qualified Code(s): R19.7 - Diarrhea, unspecified Patient Disposition: Admitted As Inpatient
--- NOTE | 2025-01-31 15:19 | ECG_ITS ---
Test Reason : DIZZINESS Blood Pressure : */* mmHG Vent. Rate : 81 BPM Atrial Rate : 81 BPM P-R Int : 172 ms QRS Dur : 100 ms QT Int : 418 ms P-R-T Axes : 51 -19 82 degrees QTcB Int : 485 ms Normal sinus rhythm Low voltage QRS Borderline ECG When compared with ECG of 20-Dec-2023 23:32, Premature ventricular complexes are no longer Present Referred By: Brianna Sahni Electronically Signed By: LUDA VICTORIA
[2025-01-31 15:56] LABS: MANUAL DIFF FLAG NO
[2025-01-31 15:57] LABS: Hematocrit 35.0 % (37.0-47.0); Hemoglobin 10.6 g/dl (12.0-16.0); Imm Gran Abs Auto 0.05 X10*3/uL (0.00-0.03); Imm Gran Pct Auto 0.5 % (0.0-0.4); Lymphocytes Absolute Auto 1.0 X10*3/uL (1.2-4.9); Mean Corpuscular HGB Conc 30.3 g/dl (31.0-35.0); Mean Corpuscular Hemoglobin 29.0 pg (27.0-33.0); Mean Corpuscular Volume 95.9 fL (80.0-98.0); NRBC Abs Auto 0.000 X10*3/uL (0.0-0.012); NRBC Pct Auto 0.0 /100WBC (0.0-0.2); Platelet Count 144 X10*3/uL (160-400); Red Blood Count 3.65 X10*6/uL (4.20-5.50); White Blood Count 9.3 X10*3/uL (4.8-10.8)
[2025-01-31 16:16] LABS: B Type Natriuretic Peptide 42 pg/mL (<100)
[2025-01-31 16:20] LABS: Troponin-I High Sensitivity 11.2 ng/L (<3.5-17.0)
[2025-01-31 16:22] LABS: Alanine Aminotransferase < 6 U/L (0-31); Albumin Level 4.1 g/dL (3.5-5.0); Alkaline Phosphatase 109 U/L (39-117); Anion Gap 15 (12-20); Aspartate Amino Transferase 14 U/L (5-31); Blood Urea Nitrogen 50 mg/dL (9-16); Calcium 8.6 mg/dL (8.4-10.2); Carbon Dioxide 27 mmol/L (22-29); Chloride 107 mmol/L (96-108); Creatinine Clr Calc Pharmacy 20.7; Estimated Glomerular Filt Rate 13; Magnesium 2.1 mg/dL (1.6-2.6); Potassium 5.4 mmol/L (3.3-5.1); Sodium 144 mmol/L (135-145); Total Protein 6.5 g/dL (6.5-8.0)
[2025-01-31 18:13] VITALS: BP 99/44; PULSE 78; RESP 18; TEMP 36.6; O2SAT 96
[2025-01-31 21:15] VITALS: BP 151/50
[2025-01-31] MEDS: Albuterol Sulfate (0.083%) 2.5 MG/3 ML VIAL.NEB INHALE (21:22)
[2025-01-31] MEDS: Calcium Gluconate/NaCl,Iso-Osm 1 GM/50 ML PLAST..BAG IV (22:04)
--- NOTE | 2025-01-31 22:44 | PC.NURSE ---
PT yelling I want to go home, i don't fu care get me out of here i'm going to go home now call Rosetta! This Nurse called Pt's Yessiece Rosetta and updated her verbal consent given from pt to update niece & daughter Shannon, This Nurse then called Shannon (Pts daughter) so pt could speak to her. Pt agreed to care, Provider GUADALUPE Haile assigned to pt, pt willing to be cooperative.
--- NOTE | 2025-01-31 23:23 | PC.NURSE ---
This creative writer assumed care of this Pt at 2300.
[2025-02-01] VITALS (9 sets, daily range): BP systolic 123–164; BP diastolic 46–87; PULSE 76–89; RESP 16–19; TEMP 36.2–37; O2SAT 93–98; BMI 51.1
[2025-02-01 00:43] LABS: Anion Gap 11 (12-20); Blood Urea Nitrogen 53 mg/dL (9-16); Calcium 8.2 mg/dL (8.4-10.2); Carbon Dioxide 26 mmol/L (22-29); Chloride 111 mmol/L (96-108); Creatinine Clr Calc Pharmacy 24.2; Estimated Glomerular Filt Rate 16; Potassium 4.4 mmol/L (3.3-5.1); Sodium 144 mmol/L (135-145)
--- NOTE | 2025-02-01 02:58 | MHC.EDTECH ---
Patient is refusing to be cleaned by this ERT and PEPE Prasad. Pt is yelling and screaming and cursing at staff. Calling us liars and Assholes. it service technicianPEPE Galvan made aware of Patients outburst and refusal of care
--- NOTE | 2025-02-01 03:03 | PC.NURSE ---
Pt awake, incontinent of urine, refusing to change, multiple attempts made to perform incontinence care. Pt hyperfocused on eating instead of changing at time. Stating I want to leave, you asswoles lied to me . Price and gingerale given per request.
--- NOTE | 2025-02-01 04:52 | P.HPHOSP_ITS ---
History of Present Illness Date of Service: 02/01/25 Chief Complaint: Diarrhea, dizziness This is a 64-year-old female with pertinent history of chronic hypoxemic respiratory failure due to COPD, DANIEL/OHS on 2 L supplemental oxygen, congestive heart failure with reduced ejection fraction, CKD stage 3, morbid obesity, insulin-dependent diabetes mellitus, mood disorder, hypertension, sacral decubitus injury who presents to the emergency department for diarrhea and dizziness. Patient states she has been having diarrhea for the last 2 weeks. Multiple episodes of loose watery nonbloody stools throughout the day. Denies fever, chills, abdominal pain. No sick contacts. No nausea or vomiting. Patient also complains of dizziness which is worse with standing that started about 2-3 days prior to presentation. Denies sensation of room spinning. No chest pain or palpitations. Patient was seen at PCP's office and sent because her blood pressure was low and for evaluation of dizziness. Patient is upset and does not wish to be disturbed regarding detailed history. No shortness a breath, changes in urinary habits. In the emergency department, patient was found to have FELICIA with creatinine 3.5. Also hyperkalemia with potassium 5.4 Review of Systems 2 Constitutional: Constitutional: Reports fatigue, Reports malaise and Reports weakness ENT: Reports dizziness Cardiovascular: Cardiovascular: Reports no additional cardiovascular complaints Respiratory: Respiratory: Reports no additional respiratory complaints Gastrointestinal: Gastrointestinal: Reports diarrhea and Reports loose stools Genitourinary: Genitourinary: Reports no additional female genitourinary complaints Neurologic: Reports dizziness and Reports weakness Endocrine: Endocrine: Reports fatigue [facility] Medical History Cataracts, bilateral DANIEL (obstructive sleep apnea) COPD (chronic obstructive pulmonary disease) NICM (nonischemic cardiomyopathy) Hypertension Mood disorder Elevated d-dimer FELICIA (acute kidney injury) Abdominal pain Constipation Chronic respiratory failure with hypoxia Stercoral colitis Decubitus ulcer Hypoxia CHF exacerbation MDD (major depressive disorder), recurrent episode, moderate Adjustment disorder with mixed anxiety and depressed mood Panic disorder Cellulitis of right lower extremity Stasis dermatitis of both legs Asthma Hyperglycemia due to diabetes mellitus Congestive heart failure Obesity hypoventilation syndrome CKD (chronic kidney disease) stage 3, GFR 30-59 ml/min Acute on chronic combined systolic and diastolic CHF (congestive heart failure) Morbid obesity Diabetic neuropathy, painful Chronic pain High cholesterol Depression Diabetes Family History Mother HTN (hypertension) Diabetes CAD (coronary artery disease) Father HTN (hypertension) Diabetes CAD (coronary artery disease) Maternal Grandmother CAD (coronary artery disease) Surgical History History of surgery Hx of cholecystectomy Social History Household Members: None Household Members Other:: GRANDSON Housing: Condominium 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 Do you presently have visiting nurse or other home services: Yes ([facility] twice daily) Unable to assess alcohol history related to: Unknown Alcohol intake: current Alcohol intake frequency: holidays/special occasions only Alcohol type: wine Comment: 1:1 Patient Tobacco Use Status: Former Tobacco user Tobacco use type: Cigarette Years Smoked: 38 Smoked in Last 30 Days: No e-Cigarette/Vaping Use: Never Used Second Hand Smoke Exposure: No Use of substances other than those prescribed or required for medical reasons: Unknown Substance Use Type: Former Substance User Advance Directives: Yes Advance Directives on File: Yes Advance Directives Date on File: 04/30/23 Do you have a plan to hurt others: No Plan Patient : No service: No Current occupational status: disabled Current occupation: rt handed Cognitive needs: Yes (walker, cane) Hearing needs: No Vision needs: Yes (Rx glasses) Meds Allergies Allergy/AdvReac Type Severity Reaction Status Date / Time ibuprofen Allergy Intermediate vomiting, Verified 01/31/25 15:18 itching acetaminophen (Tylenol) Allergy Unknown Unknown Verified 01/31/25 15:18 codeine AdvReac Severe Anaphylaxis Verified 01/31/25 15:18 morphine AdvReac Intermediate vomiting Verified 01/31/25 15:18 vancomycin AdvReac Intermediate Itching Verified 01/31/25 15:18 Active Medications: Current Medications Acetaminophen (Acetaminophen 325 Mg Tablet) 650 mg PO Q6H PRN PRN Reason: Pain, Mild 1-3,fever,headache Calcium Carbonate (Calcium Carbonate 750 Mg Tab.Chew) 750 mg PO Q4H PRN PRN Reason: Heartburn Enoxaparin Sodium (Enoxaparin Sodium 30 Mg/0.3 Ml Syringe) 30 mg SUBCUT Q24H [facility] Magnesium Hydroxide (Milk Of Magnesia 30 Ml Oral.Susp) 30 ml PO DAILY PRN PRN Reason: Constipation Melatonin (Melatonin 3 Mg Tablet) 6 mg PO BEDTIME PRN PRN Reason: Insomnia Ondansetron HCl (Ondansetron Hcl 4 Mg/2 Ml Vial) 4 mg IVPUSH Q8H PRN PRN Reason: Nausea and Vomiting Sodium Chloride (0.9 % Sodium Chloride Flush 3 Ml Syringe) 3 ml IVFLUSH QSHIFT [facility] Home Medications ?Medication ?Instructions ?Recorded ?Confirmed ?Last Taken ?Type aspirin 81 mg tablet,delayed 81 mg PO DAILY 11/23/20 0 07/25/24 09/20/23 History release fluticasone propionate 110 2 puff inhalation BID 11/2307/25/24 09/20/23 History mcg/actuation HFA aerosol inhaler (Flovent HFA) simvastatin 20 mg tablet 20 mg PO BEDTIME 11/23/2009/20/23 History insulin syringe-needle U-100 1 mL 09/27/22 07/25/24 U nknown History 31 gauge x 5/16 (BD Insulin Syringe Ultra-Fine) duloxetine 30 mg capsule,delayed 30 mg PO QAM 09/21/23 07/25/24 Unknown History release meclizine 25 mg tablet 25 mg PO TID PRN Vertigo 11/1007/25/24 Unknown History metoprolol succinate 50 mg 50 mg PO DAILY 09/21/2301/1109/20/23 History tablet,extended release 24 hr prazosin 1 mg capsule 1 mg PO BEDTIME 09/21/2301/1109/20/23 History buspirone 30 mg tablet 30 mg PO BID 01/31/25 Unkno wn History ketorolac 0.5 % eye drops 1 drp ophthalmic (eye) TID 0 01/31/25 Unknown History Physical Exam 2 Vital Signs and Narrative: Vital Signs: Last Vital Signs Temp 97.9 F 02/01/25 03:38 Pulse 89 02/01/25 03:38 Resp 19 02/01/25 03:38 BP 164/72 H 02/01/25 03:38 Pulse Ox 95 02/01/25 03:38 O2 Del Method Room Air 02/01/25 03:38 BMI result Body Mass Index 49.9 Middle-aged female lying in bed in no distress Neck supple, no JVD Regular rate and rhythm, S1-S2 heard Regular breath sounds bilaterally, no wheezing or crackles appreciated Abdomen soft nontender, no guarding, no rigidity Patient is awake, alert and oriented x4 ; no focal motor deficit Psych: Anxious No pedal edema Results Labs 01/31/25 15:50 02/01/25 00:25 Labs: Laboratory Results - last 24 hr 01/31/25 02/01/25 15:50 00:25 MCV 95.9 MCH 29.0 MCHC 30.3 L RDW 14.9 Plt Count 144 L MPV 9.7 Immature Gran % (Auto) 0.5 H Neut % (Auto) 78.3 H Lymph % (Auto) 11.1 L [place] % (Auto) 7.5 Eos % (Auto) 2.5 Baso % (Auto) 0.1 Lymph # (Auto) 1.0 L [place] # (Auto) 0.7 Eos # (Auto) 0.2 Baso # (Auto) 0.0 Abs Immat Gran (auto) 0.05 H Absolute Neuts (auto) 7.3 Absolute Nucleated RBC 0.000 Nucleated RBC % (auto) 0.0 Anion Gap 15 11 L Estim Creat Clear Calc 20.7 24.2 Estimated GFR 13 16 Random Glucose 144 H 162 H Calcium 8.6 8.2 L Magnesium 2.1 Total Bilirubin 0.3 AST 14 ALT < 6 Alkaline Phosphatase 109 B-Natriuretic Peptide 42 Total Protein 6.5 Albumin 4.1 TSH 0.82 Assessment and Plan (1) Acute kidney injury: Status: Acute (2) Pre-syncope: Status: Acute Plan This is a 64-year-old female with pertinent history of chronic hypoxemic respiratory failure due to COPD, DANIEL/OHS on 2 L supplemental oxygen, congestive heart failure with reduced ejection fraction, CKD stage 3, morbid obesity, insulin-dependent diabetes mellitus, mood disorder, hypertension, sacral decubitus injury who presents to the emergency department for diarrhea and dizziness. #. Acute kidney injury on CKD, prerenal: Improving with crystalloid resuscitation. Monitor creatinine and urine output. Avoid nephrotoxins #. Acute diarrhea: GI panel and C diff pending. Supportive care #. Presyncope, orthostatic: In the setting of diarrhea. Resuscitated with IV crystalloids. Obtain orthostatics in a.m.. Also on cardiac monitoring. Denies vertigo #. Mood disorder: Continue home mood stabilizers #. Insulin-dependent diabetes mellitus: Initiating Accu-Cheks with sliding scale insulin. Reduced home basal insulin once med rec is complete #. Chronic hypoxemic respiratory failure due to COPD, DANIEL/ohs on 2 L supplemental oxygen: Continue home inhalers and CPAP at bedtime #. Obesity: Counseled regarding diet and weight loss #. Congestive heart failure with reduced ejection fraction: Hold diuretics in the setting of FELICIA #. Hypertension: Continue home antihypertensives #. Sacral decubitus injury: Consulting Wound Care Med rec pending DVT prophylaxis: Lovenox Full code Admit as inpatient and will require two night minimum hospital stay for close monitoring of kidney function, (as above), which is not possible in a lesser acute setting. Quality Stroke Does the patient have a stroke diagnosis?: No VTE Prior VTE?: No VTE Risk Level:: Medical - moderate - high VTE Device Contraindication: Treatment Not Indicated VTE Drug Contraindication: N/A - Med Ordered
--- NOTE | 2025-02-01 05:30 | PC.NURSE ---
Incontinent care provided. Open area noted to left upper buttock/coccyx area, foam guard applied. Pt states it is chronic. Purewick placed.
[2025-02-01 07:27] LABS: Glucose, Whole Blood 140 mg/dL (60-115)
[2025-02-01] MEDS: 0.9 % Sodium Chloride Flush 3 ML SYRINGE IVFLUSH (07:51)
[2025-02-01] MEDS: Lactated Ringers 1,000 ML 125 ML IVCONT ×2 (10:23→17:55)
--- NOTE | 2025-02-01 10:26 | HO.WOUND ---
Wound Consult: Initial 64yr old F? [place] [facility] [place] - See progress notes and H&P for detailed history.? Wound consult placed for Sacrum POA.? Patient agreeable to assessment and photo documentation.? Chart review reveals patient has followed with outpatient wound clinic in the past for the buttock wound however she reports the wounds healed and has not been back in some time. Patient is noted to have mixed incontinence - incontinence care provided. Purewick in place. Sacrum Etiology: ?Stage 3 Pressure Injury - ?Present on Admission Measurements: 3cm x 2cm x 0.3cm Wound Bed: red pink clean wound bed - full thickness tissue loss Drainage / Odor: small amount of serosang Edges: ? unattached and defined [place] wound: ? MASD Dark red purple blanchable intact tissue - No Induration, Fluctuance or Warmth noted - scar tissue observed and evidence of previous injury. Pain: pt reported discomfort Goals of Treatment: ? Triad to provide moist wound healing environment and protect from moisture and friction Recommendations: 1. Turn and Reposition every 2 hours and as needed for patient comfort.? Use pillows or wedges to support off loading positions. 2. Off Load all bony prominences with use of pillows and heel boots if needed.? Apply Preventative foams where needed. ? 3. Monitor for incontinence and moisture control, use barrier creams when needed for prevention and treatment. 4. Provide adequate and supplemental nutrition.? 5. Order low air loss mattress. 6. When applicable maintain blood glucose levels per Providers order. 7. Bilateral Buttock and Sacrum - Off Load Pressure with Q2 hr turns and use of pillows - Cleanse with PH balance spray or wipes, pat dry. ?Apply thin layer of Triad to wound bed. Do not remove all of paste between applications as this may cause further skin damage.? Cover with foam dressing to aid in off loading and protection from friction. Change every 3 days and PRN. If foam is frequently wet remove and continue with Triad alone. Re-consult wound care Nurse for wound deterioration or wound changes.
--- NOTE | 2025-02-01 10:47 | MHC.CM.PN ---
CM met with Patient at bedside and spoke with Breanna/Rosetta @ [phone]. Patient lives alone in an apartment; she has Nurses from [facility] 3X/day for meds,home O2, MOW's, and a COLLARETTE SEPARATOR.Home/resume said services is the goal and CM has initiated and will follow for dc planning. PCP/PA is Celia Horn and Patient will require assist with transport at time of dc. HCP is Breanna/Yamileth.
[2025-02-01 11:17] LABS: Glucose, Whole Blood 132 mg/dL (60-115)
--- NOTE | 2025-02-01 14:00 | PHA.MEDREC ---
Addendum entered by Zachery Rubin RPh 02/01/25 14:37: Per Kike, visiting nurse confirmed with her that patient takes trazodone 50 mg 2 tablets at bedtime. MED REC REVIEWED BY [facility]. Original Note: Pharmacy Consult ? Medication Reconciliation Pharmacy has completed the medication reconciliation. Spoke with pt SHANITA (Shahram [phone]) and he was able to confirm what the pt takes for medications with me. VN confirmed the pt Lantus; 60 units at bedtime, Humalog; 4 units TID and pt Zepbound once a week on Wednesdays. VN states pt no longer takes the Sertraline and is now taking Duloxetine; VN states that changed a few months ago . VN states pt still uses Diclofenac Gel as needed for pain, Risperidone 0.5mg tabs 1 BID and Bumetanide 2mg tabs 1 QD.
--- NOTE | 2025-02-01 14:16 | MHC.CLN ---
CONSULT PT WITH INCREASED NUTRITION RISK R/T PRESSURE INJURY DIET RX: 1800DM-APPROPRIATE RECOMMEND ADDING ENSURE MAX TO PROVIDE 300KCALS, 60G PROTEIN TO PROMOTE WOUND HEALING MONITOR PO INTAKE AND ENCOURAGE SUPPLEMENT SEE FULL ASSESSMENT
--- NOTE | 2025-02-01 14:38 | HO.PM.IMPN ---
Subjective Subjective Date of Service: 02/01/25 Interval History: tired, irritable endorses diarrhea + dizziness no abd pain Review of Systems Review of Systems: Yes all other systems are reviewed and are negative Physical Exam Vital Signs: Vital Signs: Last Vital Signs Temp 97.1 F 02/01/25 11:38 Pulse 81 02/01/25 11:38 Resp 18 02/01/25 11:38 BP 131/60 02/01/25 11:38 Pulse Ox 94 02/01/25 11:38 O2 Del Method Room Air 02/01/25 11:38 BMI result Body Mass Index 51.1 Gen: in no acute distress HEENT: sclera anicteric, moist mucus membranes Neck: supple Lungs: clear to auscultation bilaterally Heart: regular rate and rhythm, no murmurs Abd: soft, non-tender, non-distended, obese Ext: no edema Skin: warm/well-perfused Neuro: alert and oriented x3, no focal findings Psych: appropriate affect Objective Data Active Medications Calcium Carbonate (Calcium Carbonate 750 Mg Tab.Chew) 750 mg PO Q4H PRN PRN Reason: Heartburn Dextrose (Dextrose 50 % 25 Gm/50 Ml Syringe) 25 gm IVPUSH Q15M PRN; Protocol PRN Reason: per Hypoglycemia Standing Ord. Enoxaparin Sodium (Enoxaparin Sodium 30 Mg/0.3 Ml Syringe) 30 mg SUBCUT Q24H [facility] Last Admin: 02/01/25 08:54 Dose: 30 mg Documented By: COLIN Glucose (Glucose Gel 15 Gm Gel..Gram.) 15 gm PO Q15M PRN; Protocol PRN Reason: per Hypoglycemia Standing Ord. Lactated Ringer's (Lr) 1,000 mls @ 125 mls/hr IVCONT .Q8H [facility] Last Admin: 02/01/25 10:23 Dose: 125 mls/hr Documented By: COLIN Insulin Human Lispro (Insulin Lispro 100 Unit/Ml 3 Ml Vial) 0 unit SUBCUT QIDACHS [facility]; Protocol Last Admin: 02/01/25 11:19 Dose: Not Given Documented By: COLIN Non-Admin Reason: No Insulin Coverage Magnesium Hydroxide (Milk Of Magnesia 30 Ml Oral.Susp) 30 ml PO DAILY PRN PRN Reason: Constipation Melatonin (Melatonin 3 Mg Tablet) 6 mg PO BEDTIME PRN PRN Reason: Insomnia Nystatin (Nystatin Powder 15 Gm Bottle) 1 appl TOPICAL TID [facility]; Protocol Last Admin: 02/01/25 10:25 Dose: 1 appl Documented By: COLIN Ondansetron HCl (Ondansetron Hcl 4 Mg/2 Ml Vial) 4 mg IVPUSH Q8H PRN PRN Reason: Nausea and Vomiting Sodium Chloride (0.9 % Sodium Chloride Flush 3 Ml Syringe) 3 ml IVFLUSH QSHIFT [facility] Last Admin: 02/01/25 07:51 Dose: 3 ml Documented By: MIGUELITO Labs 01/31/25 15:50 02/01/25 00:25 Labs: Laboratory Results - last 24 hr 01/31/25 02/01/25 02/01/25 15:50 00:25 07:23 MCV 95.9 MCH 29.0 MCHC 30.3 L RDW 14.9 Plt Count 144 L MPV 9.7 Immature Gran % (Auto) 0.5 H Neut % (Auto) 78.3 H Lymph % (Auto) 11.1 L [place] % (Auto) 7.5 Eos % (Auto) 2.5 Baso % (Auto) 0.1 Lymph # (Auto) 1.0 L [place] # (Auto) 0.7 Eos # (Auto) 0.2 Baso # (Auto) 0.0 Abs Immat Gran (auto) 0.05 H Absolute Neuts (auto) 7.3 Absolute Nucleated RBC 0.000 Nucleated RBC % (auto) 0.0 Anion Gap 15 11 L Estim Creat Clear Calc 20.7 24.2 Estimated GFR 13 16 POC Glucose 140 H Random Glucose 144 H 162 H Calcium 8.6 8.2 L Magnesium 2.1 Total Bilirubin 0.3 AST 14 ALT < 6 Alkaline Phosphatase 109 B-Natriuretic Peptide 42 Total Protein 6.5 Albumin 4.1 TSH 0.82 02/01/25 11:14 MCV MCH MCHC RDW Plt Count MPV Immature Gran % (Auto) Neut % (Auto) Lymph % (Auto) [place] % (Auto) Eos % (Auto) Baso % (Auto) Lymph # (Auto) [place] # (Auto) Eos # (Auto) Baso # (Auto) Abs Immat Gran (auto) Absolute Neuts (auto) Absolute Nucleated RBC Nucleated RBC % (auto) Anion Gap Estim Creat Clear Calc Estimated GFR POC Glucose 132 H Random Glucose Calcium Magnesium Total Bilirubin AST ALT Alkaline Phosphatase B-Natriuretic Peptide Total Protein Albumin TSH Assessment and Plan (1) Diarrhea: Status: Acute Plan d2 for 74yo F with chronic hypoxia due to COPD/DANIEL/OHS on 2L O2, HFrEF, CKD3, obesity, DM2, mood disorder, and HTN presenting with diahrea + dizziness, admitted for FELICIA FELICIA/CKD3 - suspected prerenal, continue IV crystalloid, hold bumetanide, recheck BMP tomorrow AM diarrhea - GI panel + Cdiff PCR pending orthostasis - continue IV crystalloid, repeat orthostatics DM2 - basal-bolus insulin chronic hypoxia due to COPD/DANIEL/OHS - continue home oxygen 2L + nocturnal CPAP morbid obesity - diet/exercise counseling mood disorder - continue buspirone, clonidine, lorazepam, prazosin, risperidone, trazodone chronic HFrEF - continue Imdur, metoprolol succinate peripheral neuropathy - continue gabapentin gout - continue allopurinol sacral decubitus injury, stage 3 pressure - Wound Care consulted: Bilateral Buttock and Sacrum - Off Load Pressure with Q2 hr turns and use of pillows - Cleanse with PH balance spray or wipes, pat dry. ?Apply thin layer of Triad to wound bed. Do not remove all of paste between applications as this may cause further skin damage.? Cover with foam dressing to aid in off loading and protection from friction. Change every 3 days and PRN. If foam is frequently wet remove and continue with Triad alone. VTE ppx - enoxaparin dispo - TBD In my clinical judgment, the patient requires continued inpatient hospitalization for the following reasons: IV fluid resuscitation Total time managing care of this patient today: 35 minutes. Quality Stroke Does the patient have a stroke diagnosis?: No VTE Prior VTE?: No VTE Risk Level:: Medical - moderate - high VTE Device Contraindication: Treatment Not Indicated VTE Drug Contraindication: N/A - Med Ordered
[2025-02-01 16:19] LABS: Glucose, Whole Blood 99 mg/dL (60-115)
--- NOTE | 2025-02-01 17:34 | PC.NURSE ---
This RN attempted to call Pedro multiples time throughout shift to provide updates but phone calls would not go through.
[2025-02-01 19:39] LABS: Glucose, Whole Blood 171 mg/dL (60-115)
--- NOTE | 2025-02-01 20:02 | PC.RT ---
pt refuses CPAP, states she has not worn it for a long time-that it scares her
[2025-02-01 20:16] LABS: CDiff Gene PCR NEGATIVE (Negative)
[2025-02-01] MEDS: Ketorolac Tromethamine 0.5% Op 5 ML DROPS 1 DROP EYE-BOTH (21:35)
[2025-02-01] MEDS: Insulin Glargine,Hum.rec.anlog 100 UNIT/ML 10 ML VIAL 30 UNIT SUBCUT (21:36)
[2025-02-02] MEDS: Lactated Ringers 1,000 ML 125 ML IVCONT ×3 (02:10→16:53)
[2025-02-02 04:00] VITALS: BP 135/58; PULSE 77; RESP 18; TEMP 36.6; O2SAT 96
[2025-02-02 08:00] VITALS: BP 131/64; PULSE 75; RESP 18; TEMP 35.9; O2SAT 93
[2025-02-02 08:09] LABS: Glucose, Whole Blood 98 mg/dL (60-115)
[2025-02-02] MEDS: Metoprolol Succinate ER 50 MG TAB.ER.24H PO (09:42)
[2025-02-02] MEDS: Ketorolac Tromethamine 0.5% Op 5 ML DROPS 1 DROP EYE-BOTH ×3 (09:44→21:29)
[2025-02-02 10:12] LABS: MANUAL DIFF FLAG NO
[2025-02-02 10:16] LABS: Hematocrit 33.7 % (37.0-47.0); Hemoglobin 10.6 g/dl (12.0-16.0); Imm Gran Abs Auto 0.05 X10*3/uL (0.00-0.03); Imm Gran Pct Auto 0.7 % (0.0-0.4); Lymphocytes Absolute Auto 1.3 X10*3/uL (1.2-4.9); Mean Corpuscular HGB Conc 31.5 g/dl (31.0-35.0); Mean Corpuscular Hemoglobin 29.5 pg (27.0-33.0); Mean Corpuscular Volume 93.9 fL (80.0-98.0); NRBC Abs Auto 0.000 X10*3/uL (0.0-0.012); NRBC Pct Auto 0.0 /100WBC (0.0-0.2); Platelet Count 138 X10*3/uL (160-400); Red Blood Count 3.59 X10*6/uL (4.20-5.50); White Blood Count 6.8 X10*3/uL (4.8-10.8)
[2025-02-02 10:47] LABS: Anion Gap 10 (12-20); Blood Urea Nitrogen 30 mg/dL (9-16); Calcium 8.2 mg/dL (8.4-10.2); Carbon Dioxide 28 mmol/L (22-29); Chloride 110 mmol/L (96-108); Creatinine Clr Calc Pharmacy 49.2; Estimated Glomerular Filt Rate 35; Potassium 4.4 mmol/L (3.3-5.1); Sodium 144 mmol/L (135-145)
[2025-02-02 11:43] LABS: Glucose, Whole Blood 141 mg/dL (60-115)
[2025-02-02 11:54] VITALS: BP 139/61; PULSE 74; RESP 17; TEMP 36.5; O2SAT 95
[2025-02-02 12:11] LABS: E. coli EAEC Not Detected (Not Detect.); E. coli EPEC Not Detected (Not Detect.); E. coli ETEC Not Detected (Not Detect.); E. coli STEC Not Detected (Not Detect.); Shigella sp./EIEC Not Detected (Not Detect.)
--- NOTE | 2025-02-02 14:15 | P.PNIM_ITS ---
Subjective Subjective Date of Service: 02/02/25 Interval History: diarrhea improving lightheadendss improving Review of Systems Review of Systems: Yes all other systems are reviewed and are negative Physical Exam 2 Vital Signs: Vital Signs: Last Vital Signs Temp 97.7 F 02/02/25 11:54 Pulse 74 02/02/25 11:54 Resp 17 02/02/25 11:54 BP 139/61 02/02/25 11:54 Pulse Ox 95 02/02/25 11:54 O2 Del Method Room Air 02/02/25 11:54 BMI result Body Mass Index 51.1 Gen: in no acute distress HEENT: sclera anicteric, moist mucus membranes Neck: supple Lungs: clear to auscultation bilaterally Heart: regular rate and rhythm, no murmurs Abd: soft, non-tender, non-distended, obese Ext: no edema Skin: warm/well-perfused Neuro: alert and oriented x3, no focal findings Psych: appropriate affect Objective Data Active Medications Allopurinol (Allopurinol 100 Mg Tablet) 100 mg PO DAILY PENDING SALE TO [facility] Last Admin: 02/02/25 09:42 Dose: 100 mg Documented By: MARLEN Atorvastatin Calcium (Atorvastatin Calcium 10 Mg Tablet) 10 mg PO BEDTIME PENDING SALE TO [facility] Last Admin: 02/01/25 21:35 Dose: 10 mg Documented By: JOSEPH Buspirone HCl (Buspirone Hcl 10 Mg Tablet) 30 mg PO BID PENDING SALE TO [facility] Last Admin: 02/02/25 09:43 Dose: 30 mg Documented By: MARLEN Calcium Carbonate (Calcium Carbonate 750 Mg Tab.Chew) 750 mg PO Q4H PRN PRN Reason: Heartburn Clonidine HCl (Clonidine Hcl 0.1 Mg Tablet) 0.1 mg PO TID PENDING SALE TO [facility]; Protocol Last Admin: 02/02/25 09:43 Dose: 0.1 mg Documented By: MARLEN Dextrose (Dextrose 50 % 25 Gm/50 Ml Syringe) 25 gm IVPUSH Q15M PRN; Protocol PRN Reason: per Hypoglycemia Standing Ord. Duloxetine HCl (Duloxetine Hcl 60 Mg Capsule.) 60 mg PO DAILY PENDING SALE TO [facility] Last Admin: 02/02/25 09:43 Dose: 60 mg Documented By: MARLEN Enoxaparin Sodium (Enoxaparin Sodium 30 Mg/0.3 Ml Syringe) 30 mg SUBCUT Q24H PENDING SALE TO [facility] Last Admin: 02/02/25 09:51 Dose: 30 mg Documented By: MARLEN Gabapentin (Gabapentin 400 Mg Capsule) 400 mg PO BID@0900,1500 PENDING SALE TO [facility] Last Admin: 02/02/25 09:43 Dose: 400 mg Documented By: MARLEN Glucose (Glucose Gel 15 Gm Gel..Gram.) 15 gm PO Q15M PRN; Protocol PRN Reason: per Hypoglycemia Standing Ord. Lactated Ringer's (Lr) 1,000 mls @ 125 mls/hr IVCONT .Q8H PENDING SALE TO [facility] Last Admin: 02/02/25 09:44 Dose: 125 mls/hr Documented By: MARLEN Insulin Glargine (Insulin Glargine,Hum.Rec.Anlog 100 Unit/Ml 10 Ml Vial) 30 unit SUBCUT BEDTIME PENDING SALE TO [facility] Last Admin: 02/01/25 21:36 Dose: 30 unit Documented By: JOSEPH Insulin Human Lispro (Insulin Lispro 100 Unit/Ml 3 Ml Vial) 0 unit SUBCUT QIDACHS PENDING SALE TO [facility]; Protocol Last Admin: 02/02/25 11:50 Dose: Not Given Documented By: MARLEN Non-Admin Reason: No Insulin Coverage Isosorbide Mononitrate (Isosorbide Mononitrate 60 Mg Tab.Er.24h) 60 mg PO DAILY PENDING SALE TO [facility]; Protocol Last Admin: 02/02/25 09:43 Dose: 60 mg Documented By: MARLEN Ketorolac Tromethamine (Ketorolac Tromethamine 0.5% Op 5 Ml Drops) 1 drop EYE- BOTH TID PENDING SALE TO [facility] Last Admin: 02/02/25 09:44 Dose: 1 drop Documented By: MARLEN Loperamide HCl (Loperamide Hcl 2 Mg Capsule) 4 mg PO Q4H PRN PRN Reason: diarrhoea Lorazepam (Lorazepam 0.5 Mg Tablet) 0.5 mg PO TID PRN PRN Reason: Anxiety Magnesium Hydroxide (Milk Of Magnesia 30 Ml Oral.Susp) 30 ml PO DAILY PRN PRN Reason: Constipation Melatonin (Melatonin 3 Mg Tablet) 6 mg PO BEDTIME PRN PRN Reason: Insomnia Metoprolol Succinate (Metoprolol Succinate Er 50 Mg Tab.Er.24h) 50 mg PO DAILY PENDING SALE TO [facility]; Protocol Last Admin: 02/02/25 09:42 Dose: 50 mg Documented By: MARLEN Non-Formulary Medication (Linaclotide [Linzess]) 290 mcg PO DAILY PENDING SALE TO [facility] Nystatin (Nystatin Powder 15 Gm Bottle) 1 appl TOPICAL TID PENDING SALE TO [facility]; Protocol Last Admin: 02/02/25 09:44 Dose: 1 appl Documented By: MARLEN Omeprazole (Omeprazole 20 Mg Capsule.) 20 mg PO BEDTIME@1800 PENDING SALE TO [facility] Last Admin: 02/01/25 16:21 Dose: 20 mg Documented By: COLIN Ondansetron HCl (Ondansetron Hcl 4 Mg/2 Ml Vial) 4 mg IVPUSH Q8H PRN PRN Reason: Nausea and Vomiting Prazosin HCl (Prazosin Hcl 1 Mg Capsule) 1 mg PO BEDTIME PENDING SALE TO [facility]; Protocol Last Admin: 02/01/25 21:36 Dose: 1 mg Documented By: JOSEPH Risperidone (Risperidone 0.5 Mg Tablet) 0.5 mg PO BID PENDING SALE TO [facility] Last Admin: 02/02/25 09:42 Dose: 0.5 mg Documented By: MARLEN Sodium Chloride (0.9 % Sodium Chloride Flush 3 Ml Syringe) 3 ml IVFLUSH QSHIFT PENDING SALE TO [facility] Last Admin: 02/02/25 09:48 Dose: Not Given Documented By: MARLEN Non-Admin Reason: IV Running Trazodone HCl (Trazodone Hcl 100 Mg Tablet) 100 mg PO BEDTIME PENDING SALE TO [facility] Last Admin: 02/01/25 21:36 Dose: 100 mg Documented By: JOSEPH Labs 02/02/25 10:05 02/02/25 10:06 Labs: Laboratory Results - last 24 hr 02/01/25 02/01/25 02/01/25 16:11 18:25 19:20 MCV MCH MCHC RDW Plt Count MPV Immature Gran % (Auto) Neut % (Auto) Lymph % (Auto) [place] % (Auto) Eos % (Auto) Baso % (Auto) Lymph # (Auto) [place] # (Auto) Eos # (Auto) Baso # (Auto) Abs Immat Gran (auto) Absolute Neuts (auto) Absolute Nucleated RBC Nucleated RBC % (auto) Anion Gap Estim Creat Clear Calc Estimated GFR POC Glucose 99 171 H Random Glucose Calcium Stl C. cayetanensis PCR Not Detected Stool Rotavirus A PCR Not Detected Stl Adenov F 40 PCR Not Detected Stool Astrovirus (PCR) Not Detected Stool Campylobacter PCR Not Detected Stool Cryptosporidium PCR Not Detected Stl Sh Tox Pr E STEC PCR Not Detected Stool E coli O157 PCR Not applicable Stl Enterotoxigenic E PCR Not Detected Stool EPEC (PCR) Not Detected Stool EAEC (PCR) Not Detected Stl E. histolytica PCR Not Detected Stool Giardia Lamblia PCR Not Detected Stl P. shigelloides PCR Not Detected Stool Salmonella PCR Not Detected Stool Sapovirus (PCR) Not Detected Stl Shigella/EIEC PCR Not Detected St Y.enterocolitica PCR Not Detected Stool Vibrio (PCR) Not Detected Stl Vibrio cholerae PCR Not Detected Stl Norovirus GI/GII PCR Not Detected C. difficile Tox B Gene NEGATIVE 02/02/25 02/02/25 02/02/25 07:49 10:05 10:06 MCV 93.9 MCH 29.5 MCHC 31.5 RDW 14.6 Plt Count 138 L MPV 9.3 L Immature Gran % (Auto) 0.7 H Neut % (Auto) 70.2 Lymph % (Auto) 18.9 L [place] % (Auto) 7.5 Eos % (Auto) 2.4 Baso % (Auto) 0.3 Lymph # (Auto) 1.3 [place] # (Auto) 0.5 Eos # (Auto) 0.2 Baso # (Auto) 0.0 Abs Immat Gran (auto) 0.05 H Absolute Neuts (auto) 4.8 Absolute Nucleated RBC 0.000 Nucleated RBC % (auto) 0.0 Anion Gap 10 L Estim Creat Clear Calc 49.2 Estimated GFR 35 POC Glucose 98 Random Glucose 110 Calcium 8.2 L Stl C. cayetanensis PCR Stool Rotavirus A PCR Stl Adenov F 40 PCR Stool Astrovirus (PCR) Stool Campylobacter PCR Stool Cryptosporidium PCR Stl Sh Tox Pr E STEC PCR Stool E coli O157 PCR Stl Enterotoxigenic E PCR Stool EPEC (PCR) Stool EAEC (PCR) Stl E. histolytica PCR Stool Giardia Lamblia PCR Stl P. shigelloides PCR Stool Salmonella PCR Stool Sapovirus (PCR) Stl Shigella/EIEC PCR St Y.enterocolitica PCR Stool Vibrio (PCR) Stl Vibrio cholerae PCR Stl Norovirus GI/GII PCR C. difficile Tox B Gene 02/02/25 11:30 MCV MCH MCHC RDW Plt Count MPV Immature Gran % (Auto) Neut % (Auto) Lymph % (Auto) [place] % (Auto) Eos % (Auto) Baso % (Auto) Lymph # (Auto) [place] # (Auto) Eos # (Auto) Baso # (Auto) Abs Immat Gran (auto) Absolute Neuts (auto) Absolute Nucleated RBC Nucleated RBC % (auto) Anion Gap Estim Creat Clear Calc Estimated GFR POC Glucose 141 H Random Glucose Calcium Stl C. cayetanensis PCR Stool Rotavirus A PCR Stl Adenov F 40/41 PCR Stool Astrovirus (PCR) Stool Campylobacter PCR Stool Cryptosporidium PCR Stl Sh Tox Pr E STEC PCR Stool E coli O157 PCR Stl Enterotoxigenic E PCR Stool EPEC (PCR) Stool EAEC (PCR) Stl E. histolytica PCR Stool Giardia Lamblia PCR Stl P. shigelloides PCR Stool Salmonella PCR Stool Sapovirus (PCR) Stl Shigella/EIEC PCR St Y.enterocolitica PCR Stool Vibrio (PCR) Stl Vibrio cholerae PCR Stl Norovirus GI/GII PCR C. difficile Tox B Gene Assessment and Plan (1) Diarrhea: Status: Acute Plan d3 for 74yo F with chronic hypoxia due to COPD/DANIEL/OHS on 2L O2, HFrEF, CKD3, obesity, DM2, mood disorder, and HTN presenting with diahrea + dizziness, admitted for FELICIA FELICIA/CKD3 - improving, continue IV crystalloid, hold bumetanide, recheck BMP tomorrow AM diarrhea - GI panel + Cdiff PCR negative; give prn loperamide orthostasis - continue IV crystalloid, repeat orthostatics DM2 - basal-bolus insulin chronic hypoxia due to COPD/DANIEL/OHS - continue home oxygen 2L + nocturnal CPAP morbid obesity - diet/exercise counseling mood disorder - continue buspirone, clonidine, lorazepam, prazosin, risperidone, trazodone chronic HFrEF - continue Imdur, metoprolol succinate peripheral neuropathy - continue gabapentin gout - continue allopurinol sacral decubitus injury, stage 3 pressure - Wound Care consulted: Bilateral Buttock and Sacrum - Off Load Pressure with Q2 hr turns and use of pillows - Cleanse with PH balance spray or wipes, pat dry. ?Apply thin layer of Triad to wound bed. Do not remove all of paste between applications as this may cause further skin damage.? Cover with foam dressing to aid in off loading and protection from friction. Change every 3 days and PRN. If foam is frequently wet remove and continue with Triad alone. VTE ppx - enoxaparin dispo - PT eval pending In my clinical judgment, the patient requires continued inpatient hospitalization for the following reasons: IV fluid resuscitation Total time managing care of this patient today: 35 minutes. Quality Stroke Does the patient have a stroke diagnosis?: No VTE Prior VTE?: No VTE Risk Level:: Medical - moderate - high VTE Device Contraindication: Treatment Not Indicated VTE Drug Contraindication: N/A - Med Ordered
[2025-02-02 15:09] VITALS: BP 131/62; PULSE 76; RESP 16; TEMP 36.8; O2SAT 94
[2025-02-02 16:13] LABS: Glucose, Whole Blood 148 mg/dL (60-115)
[2025-02-02] MEDS: 0.9 % Sodium Chloride Flush 3 ML SYRINGE IVFLUSH (16:53)
[2025-02-02 19:38] VITALS: BP 143/65; PULSE 78; RESP 20; TEMP 37.1; O2SAT 95
[2025-02-02 20:47] LABS: Glucose, Whole Blood 144 mg/dL (60-115)
[2025-02-02] MEDS: Insulin Glargine,Hum.rec.anlog 100 UNIT/ML 10 ML VIAL 30 UNIT SUBCUT (21:27)
[2025-02-02 23:25] VITALS: BP 130/60; PULSE 79; RESP 18; TEMP 36.9; O2SAT 96
[2025-02-03] MEDS: Lactated Ringers 1,000 ML 125 ML IVCONT ×2 (00:49→09:25)
[2025-02-03 03:03] VITALS: BP 131/58; PULSE 81; RESP 18; TEMP 37; O2SAT 93
[2025-02-03 04:37] LABS: Anion Gap 10 (12-20); Blood Urea Nitrogen 24 mg/dL (9-16); Calcium 8.2 mg/dL (8.4-10.2); Carbon Dioxide 27 mmol/L (22-29); Chloride 111 mmol/L (96-108); Creatinine Clr Calc Pharmacy 55.6; Estimated Glomerular Filt Rate 41; Potassium 4.3 mmol/L (3.3-5.1); Sodium 144 mmol/L (135-145)
[2025-02-03 07:37] VITALS: BP 133/69; PULSE 81; RESP 18; TEMP 36.6; O2SAT 92
[2025-02-03 07:59] LABS: Glucose, Whole Blood 160 mg/dL (60-115)
[2025-02-03] MEDS: Metoprolol Succinate ER 50 MG TAB.ER.24H PO (08:09)
[2025-02-03] MEDS: 0.9 % Sodium Chloride Flush 3 ML SYRINGE IVFLUSH (08:12)
[2025-02-03] MEDS: Ketorolac Tromethamine 0.5% Op 5 ML DROPS 1 DROP EYE-BOTH (08:13)
--- NOTE | 2025-02-03 10:45 | MHC.CM.PN ---
Addendum entered by Carmen Riojas RN 02/03/25 12:54: DC SUMMARY AND F2F FAXED AT 12:52PM Original Note: PT MEDICALLY CLEARED FOR DC, PT CONT'S TO DECLINE STR AND INSISTS ON GOING HOME, PT IS ACTIVE W/[facility] AND REPORTS THEY CAN ASSIST W/ANY NEEDS, PT ALSO ACTIVE W/[facility] FOR BID NSG AND CM SPOKE DARCI TO [facility] AND THEY REPORTED THEY WILL ADD WOUND CARE AND HOME PT. DC SUMMARY AND F2F TO BE FAXED TO [phone]. PT WILL ARRANGE HER OWN TRANSPORT
[2025-02-03 11:42] VITALS: BP 137/57; PULSE 82; RESP 20; TEMP 37.1; O2SAT 95
[2025-02-03 11:52] LABS: Glucose, Whole Blood 174 mg/dL (60-115)
--- NOTE | 2025-02-03 11:58 | MHC.CLN ---
F/U PT WITH INCREASED NUTRITION RISK R/T PRESSURE INJURY PO INTAKE 50-100% DIET RX: 1800DM-APPROPRIATE RECEIVING ENSURE MAX TO PROVIDE 300KCALS, 60G PROTEIN TO PROMOTE WOUND HEALING MONITOR PO INTAKE AND ENCOURAGE SUPPLEMENTS
--- NOTE | 2025-02-03 12:17 | W.MHC.F2F ---
Service Date Service Date: 02/03/25 Encounter Date of encounter: 02/03/25 Reasons for Services Signs and symptoms assessed: attach PT evaluation from 02/02/25 Reason for shelter: wound care, medication management, medication treatment and teach disease management Reason for physical therapy: home safety and mobility, therapeutic exercises, gait/transfer training, assess need for DME, ADL training and energy conservation MD Overseeing Care: Celia Horn Homebound: Leaving the home is medically contraindicated at this time without the asist of a device and/or another person due th the listed conditions above and below. Reason homebound: unsteady gait / fall risk and weakness related to hospital stay Certification: Based on the above findings, I certify that this patient is confined to the home and needs intermittent shelter care, physical therapy and/or speech therapy, or continues to need occupational therapy. The patient is under my care, and I have initiated the establishment of the plan of care. The patient will be followed by a physician who will periodically review the plan of care. Time Spent With Patient Time: Total time managing care of this patient today ____ minutes.
--- NOTE | 2025-02-03 12:22 | P.DS_ITS ---
DS: Providers Provider Date of Service: 02/03/25 Date of admission: 02/01/25 02:40 Date of discharge: 02/03/25 Primary care physician: GUADALUPE Blackman Consults: 02/01/25 08:52 Consult to Wound Care Routine Reason for consultation: sacral wound DS: Diagnosis Discharge Diagnosis (1) Diarrhea: Status: Acute (2) FELICIA (acute kidney injury): Status: Acute (3) Orthostatic hypotension: Status: Acute DS: Summary Hospital Course Hospital Course: From the history and physical by the admitting hospitalist, Rachel Martin MD, 02/01/25: This is a 64-year-old female with pertinent history of chronic hypoxemic respiratory failure due to COPD, DANIEL/OHS on 2 L supplemental oxygen, congestive heart failure with reduced ejection fraction, CKD stage 3, morbid obesity, insulin-dependent diabetes mellitus, mood disorder, hypertension, sacral decubitus injury who presents to the emergency department for diarrhea and dizziness. Patient states she has been having diarrhea for the last 2 weeks. Multiple episodes of loose watery nonbloody stools throughout the day. Denies fever, chills, abdominal pain. No sick contacts. No nausea or vomiting. Patient also complains of dizziness which is worse with standing that started about 2-3 days prior to presentation. Denies sensation of room spinning. No chest pain or palpitations. Patient was seen at PCP's office and sent because her blood pressure was low and for evaluation of dizziness. Patient is upset and does not wish to be disturbed regarding detailed history. No shortness a breath, changes in urinary habits. In the emergency department, patient was found to have FELICIA with creatinine 3.5. Also hyperkalemia with potassium 5.4 74yo F with chronic hypoxia due to COPD/DANIEL/OHS on 2L O2, HFrEF, CKD3, obesity, DM2, mood disorder, and HTN presenting with diarrhea + dizziness, admitted for FELICIA that was prerenal and due to diarrhea. She improved with IV crystalloid and holding bumetanide. Diarrhea resolved; GI panel and C. difficile PCR negative. Orthostasis resolved. She was seen by PT and STR was recommended, but she declined. She was discharged home with VNA services/home PT. She should repeat BMP in 1 week. Bumetanide was resumed upon discharge. Time Attestation Discharge Coordination Time (in mins): 40 Quality: Safe Use of Opioids Does Pt have an Active Cancer Diagnosis on the Problem List?: No Quality: Stroke Does the patient have a stroke diagnosis?: No Physical Exam Vital Signs: Vital Signs: Last Vital Signs Temp 98.7 F 02/03/25 11:42 Pulse 82 02/03/25 11:42 Resp 20 02/03/25 11:42 BP 137/57 L 02/03/25 11:42 Pulse Ox 95 02/03/25 11:42 O2 Del Method Room Air 02/03/25 11:42 BMI result Body Mass Index 51.1 Gen: in no acute distress HEENT: sclera anicteric, moist mucus membranes Neck: supple Lungs: clear to auscultation bilaterally Heart: regular rate and rhythm, no murmurs Abd: soft, non-tender, non-distended, obese Ext: no edema Skin: warm/well-perfused Neuro: alert and oriented x3, no focal findings Psych: appropriate affect DS: Data Data Completed and Pending Completed studies during hospitalization [Text1]: Laboratory Results WBC 6.8 X10*3/uL (4.8-10.8) 02/02/25 10:05 RBC 3.59 X10*6/uL (4.20-5.50) L 02/02/25 10:05 Hgb 10.6 g/dl (12.0-16.0) L 02/02/25 10:05 Hct 33.7 % (37.0-47.0) L 02/02/25 10:05 MCV 93.9 fL (80.0-98.0) 02/02/25 10:05 MCH 29.5 pg (27.0-33.0) 02/02/25 10:05 MCHC 31.5 g/dl (31.0-35.0) 02/02/25 10:05 RDW 14.6 % (11.0-16.0) 02/02/25 10:05 Plt Count 138 X10*3/uL (160-400) L 02/02/25 10:05 MPV 9.3 fL (9.4-12.3) L 02/02/25 10:05 Immature Gran % (Auto) 0.7 % (0.0-0.4) H 02/02/25 10:05 Neut % (Auto) 70.2 % (45-73) 02/02/25 10:05 Lymph % (Auto) 18.9 % (20-40) L 02/02/25 10:05 [place] % (Auto) 7.5 % (2-11) 02/02/25 10:05 Eos % (Auto) 2.4 % (0-4) 02/02/25 10:05 Baso % (Auto) 0.3 % (0-2) 02/02/25 10:05 Lymph # (Auto) 1.3 X10*3/uL (1.2-4.9) 02/02/25 10:05 [place] # (Auto) 0.5 X10*3/uL (0.1-1.2) 02/02/25 10:05 Eos # (Auto) 0.2 X10*3/uL (0.0-0.4) 02/02/25 10:05 Baso # (Auto) 0.0 X10*3/uL (0.0-0.2) 02/02/25 10:05 Abs Immat Gran (auto) 0.05 X10*3/uL (0.00-0.03) H 02/02/25 10:05 Absolute Neuts (auto) 4.8 x10*3/uL (2.0-8.3) 02/02/25 10:05 Absolute Nucleated RBC 0.000 X10*3/uL (0.0-0.012) 02/02/25 10:05 Nucleated RBC % (auto) 0.0 /100WBC (0.0-0.2) 02/02/25 10:05 Hold Purple Top SEE NOTE 02/03/25 04:12 Sodium 144 mmol/L (135-145) 02/03/25 04:12 Potassium 4.3 mmol/L (3.3-5.1) 02/03/25 04:12 Chloride 111 mmol/L (96-108) H 02/03/25 04:12 Carbon Dioxide 27 mmol/L (22-29) 02/03/25 04:12 Anion Gap 10 (12-20) L 02/03/25 04:12 BUN 24 mg/dL (9-16) H 02/03/25 04:12 Creatinine 1.32 mg/dL (0.5-1.4) 02/03/25 04:12 Estim Creat Clear Calc 55.6 02/03/25 04:12 Estimated GFR 41 02/03/25 04:12 POC Glucose 174 mg/dL (60-115) H 02/03/25 11:44 Random Glucose 133 mg/dL (60-115) H 02/03/25 04:12 Calcium 8.2 mg/dL (8.4-10.2) L 02/03/25 04:12 Magnesium 2.1 mg/dL (1.6-2.6) 01/31/25 15:50 Total Bilirubin 0.3 mg/dL (0.0-1.0) 01/31/25 15:50 AST 14 U/L (5-31) 01/31/25 15:50 ALT < 6 U/L (0-31) 01/31/25 15:50 Alkaline Phosphatase 109 U/L (39-117) 01/31/25 15:50 Troponin I High Sens 11.2 ng/L (<3.5-17.0) 01/31/25 15:50 B-Natriuretic Peptide 42 pg/mL (<100) 01/31/25 15:50 Total Protein 6.5 g/dL (6.5-8.0) 01/31/25 15:50 Albumin 4.1 g/dL (3.5-5.0) 01/31/25 15:50 TSH 0.82 uIU/mL (0.32-4.0) 01/31/25 15:50 Stl C. cayetanensis PCR Not Detected (Not Detect.) 02/01/25 18: Stool Rotavirus A PCR Not Detected (Not Detect.) 02/01/25 18:25 Stl Adenov F 40/41 PCR Not Detected (Not Detect.) 02/01/25 18: Stool Astrovirus (PCR) Not Detected (Not Detect.) 02/01/25 18: Stool Campylobacter PCR Not Detected (Not Detect.) 02/01/25 18:25 Stool Cryptosporidium PCR Not Detected (Not Detect.) 02/01/25 18:25 Stl Sh Tox Pr E STEC PCR Not Detected (Not Detect.) 02/01/25 18: Stool E coli O157 PCR Not applicable (Not Detect.) 02/01/25 18:25 Stl Enterotoxigenic E PCR Not Detected (Not Detect.) 02/01/25 18:25 Stool EPEC (PCR) Not Detected (Not Detect.) 02/01/25 18:25 Stool EAEC (PCR) Not Detected (Not Detect.) 02/01/25 18:25 Stl E. histolytica PCR Not Detected (Not Detect.) 02/01/25 18:25 Stool Giardia Lamblia PCR Not Detected (Not Detect.) 02/01/25 18:25 Stl P. shigelloides PCR Not Detected (Not Detect.) 02/01/25 18:25 Stool Salmonella PCR Not Detected (Not Detect.) 02/01/25 18:25 Stool Sapovirus (PCR) Not Detected (Not Detect.) 02/01/25 18:25 Stl Shigella/EIEC PCR Not Detected (Not Detect.) 02/01/25 18:25 St Y.enterocolitica PCR Not Detected (Not Detect.) 02/01/25 18:25 Stool Vibrio (PCR) Not Detected (Not Detect.) 02/01/25 18:25 Stl Vibrio cholerae PCR Not Detected (Not Detect.) 02/01/25 18:25 Stl Norovirus GI/GII PCR Not Detected (Not Detect.) 02/01/25 18:25 C. difficile Tox B Gene NEGATIVE (Negative) 02/01/25 18:25 Discharge Plan Discharge Anticipated Discharge Date/Time: 02/03/25 12:18 Patient Disposition: Home Health Service Discharge Diagnosis: FELICIA due to diarrhea Referrals: [facility] [Outside] - 1 Day Referral Note: RESUMPTION OF MED MANAGEMENT AND NEW WOUND CARE/ HOME PT Celia Horn PA [Primary Care Provider, Hospitalist] - 1 Week Discharge Medications: Continued (DME) blood-glucose meter [FreeStyle Lite Meter] Kit See Rx Instructions .Route Qty: 1 0RF Rx Instructions: As directed checks POC 4 X/day (DME) pen needle, diabetic [Comfort EZ Pen [place]] 31 gauge x 5/16 needle See Rx Instructions .Route Qty: 200 3RF Rx Instructions: 4 times daily insulin lispro [Humalog U-100 Insulin] 100 unit/mL solution 4 unit subcut TID Qty: 10 3RF Protocol: Insulin Correction Scale Less than or equal to 110 ---- Give (units): 0 111 to 150 Give (units): 0 151 to 200 Give (units): 2 201 to 250 Give (units): 4 251 to 300 Give (units): 6 301 to 350 Give (units): 8 Greater than 350 Give (units): 10 Call MD if Blood Glucose > : 350 Rx Instructions: subcutaneous 15 minutes prior to meal or at the latest at the onset of eating. lorazepam 0.5 mg tablet 0.5 mg PO TID PRN (Reason: anxiety) Qty: 90 1RF trazodone 50 mg tablet 100 mg PO BEDTIME Qty: 90 3RF (DME) insulin syringe-needle U-100 [BD Insulin Syringe Ultra-Fine] 1 mL 31 gauge x 5/16 syringe See Rx Instructions .ROUTE QID Qty: 200 3RF Rx Instructions: Four times daily gabapentin 400 mg capsule 400 mg PO BID@0900,1500 Qty: 180 1RF simvastatin 20 mg tablet 20 mg PO BEDTIME (DME) insulin syringe-needle U-100 [BD Insulin Syringe Ultra-Fine] 1 mL 31 gauge x 5/16 syringe MISCELLANEOUS QID metoprolol succinate 50 mg tablet extended release 24 hr 50 mg PO DAILY prazosin 1 mg capsule 1 mg PO BEDTIME clonidine HCl 0.1 mg tablet 0.1 mg PO TID allopurinol 100 mg tablet 100 mg PO DAILY duloxetine 60 mg capsule,delayed release(DR/EC) 60 mg PO DAILY bumetanide 2 mg tablet 2 mg PO DAILY risperidone 0.5 mg tablet 0.5 mg PO BID insulin glargine [Lantus Solostar U-100 Insulin] 100 unit/mL (3 mL) insulin pen 60 unit subcut BEDTIME diclofenac sodium 1 % gel 4 g topical QID PRN (Reason: Pain) Rx Instructions: apply to knees QID prn Zepbound 5 mg/0.5 mL pen injector 5 mg subcut WE pantoprazole 20 mg tablet,delayed release (DR/EC) 20 mg PO BEDTIME@1800 (DME) lancets [FreeStyle Lancets] 28 gauge misc See Rx Instructions .ROUTE QID Qty: 200 3RF Rx Instructions: four times daily (DME) pen needle, diabetic [Comfort EZ Pen [place]] 32 gauge x 5/16 needle See Rx Instructions .Route Qty: 200 3RF Rx Instructions: four times daily (DME) FreeStyle Lite Strips Strip See Rx Instructions .ROUTE BID Qty: 200 3RF Rx Instructions: four times daily (DME) ADULT PULL UP XL See Rx Instructions .Route .MEDSUPPLY Qty: 360 3RF Rx Instructions: 4 per day (DME) Commode bags See Rx Instructions .Route .MEDSUPPLY Qty: 4 3RF Rx Instructions: 4x/day (DME) nitrile gloves See Rx Instructions .Route .MEDSUPPLY Qty: 360 3RF Rx Instructions: 4x/day (DME) Chux See Rx Instructions .Route .MEDSUPPLY Qty: 200 3RF Rx Instructions: 3x/day (DME) pressure relief cushion See Rx Instructions .Route .MEDSUPPLY Qty: 1 0RF Rx Instructions: daily (DME) FreeStyle Lucy 3 Sensor Device See Rx Instructions .Route Qty: 6 3RF Rx Instructions: every 14 days Linzess 290 mcg capsule 290 mcg PO DAILY Qty: 90 3RF ketorolac 0.5 % drops 1 drp ophthalmic (eye) TID buspirone 30 mg tablet 30 mg PO BID (DME) FreeStyle Lucy 3 Colstrip Misc See Rx Instructions .Route Qty: 1 0RF Rx Instructions: As directed isosorbide mononitrate 30 mg tablet extended release 24 hr 60 mg PO DAILY Qty: 180 3RF (DME) BD Insulin Syringe (half unit) 0.3 mL 31 gauge x 5/16 syringe See Rx Instructions .Route Qty: 400 3RF Rx Instructions: As directed (DME) pen needle, diabetic 32 gauge x 5/32 needle See Rx Instructions .Route Qty: 1200 3RF Rx Instructions: four times daily Discharge Orders: Discharge Order (Routine); Ordered 02/03/25 Ordered By: Heather Menchaca Diet: Diabetic diet Activity on Discharge: As tolerated Stand Alone Forms: Patient Portal Discharge page Print Language: Serbian Other Ambulatory Orders: Basic Metabolic Panel (Routine) Timeframe: 1 Week Facility: [facility] - Location: Laboratory Ordered By: Heather Menchaca Care Plan Goals: recovery from illness Health Concerns: FELICIA due to diarrhea Plan of Treatment: repeat BMP in 1 week home with VNA services/home PT Please follow up with your primary care doctor within 1 week. Return to the hospital if you experience recurrent or worsening symptoms. Assessment: See Discharge Summary.
== END 2025-02-03 15:47 | disposition home health service (06) | DRG 249 ==
LOC: HO.ED 02-01 02:35 → HO.EDOVER 02-01 02:42 → HO.IMC 02-01 06:56
PROVIDERS: Physician Assistant; Physician Assistant Medical; Admitting Provider Student in an Organized Health Care Education/Training Program; Emergency Provider Emergency Medicine; PCP Physician Assistant; Visit Provider Family Medicine
DX: R19.7 Diarrhea, unspecified (principal); L89.153 Pressure ulcer of sacral region, stage 3; I13.0 Hypertensive heart and chronic kidney disease with heart failure and stage 1 through stage 4 chronic kidney disease, or unspecified chronic kidney disease; N17.9 Acute kidney failure, unspecified; E66.2 Morbid (severe) obesity with alveolar hypoventilation; J96.11 Chronic respiratory failure with hypoxia; E11.22 Type 2 diabetes mellitus with diabetic chronic kidney disease; I50.22 Chronic systolic (congestive) heart failure; Z99.81 Dependence on supplemental oxygen; J44.9 Chronic obstructive pulmonary disease, unspecified; Z68.43 Body mass index [BMI] 50.0-59.9, adult; Z71.3 Dietary counseling and surveillance; N18.30 Chronic kidney disease, stage 3 unspecified; I95.1 Orthostatic hypotension; E11.42 Type 2 diabetes mellitus with diabetic polyneuropathy; M10.9 Gout, unspecified; Z79.4 Long term (current) use of insulin; Z79.899 Other long term (current) drug therapy
CPT/HCPCS: 36415; 80048; 80053; 82947; 83735; 83880; 84443; 84484; 85025; 87493; 87507; 93005; 97162; 99212; 99285; J0613; J1650; J7120

== ENCOUNTER → 2025-01-31 15:19 | Outpatient (BNV) | payer OTHER, SELFPAY | PROVIDERS: PCP Physician Assistant; Visit Provider Internal Medicine | DX: R42 Dizziness and giddiness (principal) | CPT/HCPCS: 93010 ==

== ENCOUNTER → 2025-02-01 02:40 | Outpatient (BNV) | payer OTHER, SELFPAY | PROVIDERS: Admitting Provider Student in an Organized Health Care Education/Training Program; Emergency Provider Emergency Medicine; PCP Physician Assistant; Visit Provider Student in an Organized Health Care Education/Training Program | DX: N17.9 Acute kidney failure, unspecified (principal); I95.1 Orthostatic hypotension; R19.7 Diarrhea, unspecified | CPT/HCPCS: 99223; 99232; 99239; 99499; G0180 ==

== ENCOUNTER 2025-03-21 13:22 | Outpatient (AMB) | payer OTHER, SELFPAY ==
--- NOTE | 2025-03-21 13:46 | A.OFFPC_ITS ---
Vital Signs 03/21/25 13:50 Height 5 ft 2 in Weight 272 lb BMI 49.7 Pulse 90 Pulse Source Pulse Oximeter Temp 97.1 F Temp Source Temporal Artery Scan Pulse Oximetry (%) 98 Oxygen Delivery Method Room Air Intake Visit Reasons: Routine Carbonizer Required: No Accompanied by: Self / Same As Patient Allergies ibuprofen Allergy (Intermediate, Verified 03/21/25 13:46) vomiting, itching acetaminophen (Tylenol) Allergy (Unknown, Verified 03/21/25 13:46) Unknown codeine Adverse Reaction (Severe, Verified 03/21/25 13:46) Anaphylaxis morphine Adverse Reaction (Intermediate, Verified 03/21/25 13:46) vomiting vancomycin Adverse Reaction (Intermediate, Verified 03/21/25 13:46) Itching Tobacco use date assessed: 03/21/25 Dental Screening Dental Screen Date: 03/21/25 Did you have a dental visit in the last 12 months?: Yes Did you have a dental problem in the last 6 months where you did not have access to dental care?: No HPI HPI Comments History of Present Illness Details 64 year old female with multiple medical issues including DM, HTN, CHF, COPD, anxiety and Asthma. Patient states she does not know why she is here today. The Visit states follow up. She was 22 minutes late for her appointment. She states her sugars have been good. She is followed by Endocrinology. Her BP today was 137/57. She states she does not want to be here and wants to go home. Patient is not able to review her medications by name. She states she is using inhalers at home but I do not see them on her medication list. She was last seen by Pulmonary in 2021. At that time she was on Flovent and Albuterol. Patient states she has two inhalers at home. [facility] Medical History Cataracts, bilateral DANIEL (obstructive sleep apnea) COPD (chronic obstructive pulmonary disease) NICM (nonischemic cardiomyopathy) Hypertension Mood disorder Elevated d-dimer FELICIA (acute kidney injury) Abdominal pain Constipation Chronic respiratory failure with hypoxia Stercoral colitis Decubitus ulcer Hypoxia CHF exacerbation MDD (major depressive disorder), recurrent episode, moderate Adjustment disorder with mixed anxiety and depressed mood Panic disorder Cellulitis of right lower extremity Stasis dermatitis of both legs Asthma Hyperglycemia due to diabetes mellitus Congestive heart failure Obesity hypoventilation syndrome CKD (chronic kidney disease) stage 3, GFR 30-59 ml/min Acute on chronic combined systolic and diastolic CHF (congestive heart failure) Morbid obesity Diabetic neuropathy, painful Chronic pain High cholesterol Depression Diabetes Surgical History History of surgery Hx of cholecystectomy Family History Mother HTN (hypertension) Diabetes CAD (coronary artery disease) Father HTN (hypertension) Diabetes CAD (coronary artery disease) Maternal Grandmother CAD (coronary artery disease) Social History Household Members: None Household Members Other:: GRANDSON Housing: House 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 Do you presently have visiting nurse or other home services: Yes Unable to assess alcohol history related to: Unknown Alcohol intake: current Alcohol intake frequency: holidays/special occasions only Alcohol type: wine Comment: 1:1 Patient Tobacco Use Status: Former Tobacco user Tobacco use type: Cigarette Years Smoked: 38 e-Cigarette/Vaping Use: Never Used Second Hand Smoke Exposure: No Substance Use Type: Former Substance User Advance Directives Date on File: 04/30/23 service: No Current occupational status: disabled Current occupation: rt handed Cognitive needs: Yes (walker, cane) Hearing needs: No Vision needs: Yes (Rx glasses) Questionnaire PHQ-9 Over the last 2 weeks, how often have you been bothered by any of the following problems? 1. Little interest or pleasure in doing things: not at all 2. Feeling down, depressed, or hopeless: nearly every day 3. Trouble falling or staying asleep, or sleeping too much: nearly every day 4. Feeling tired or having little energy: nearly every day 5. Poor appetite or overeating: not at all 6. Feeling bad about yourself - or that you are a failure or have let yourself or your family down: nearly every day 7. Trouble concentrating on things, such as reading the newspaper or watching television: several days 8. Moving or speaking so slowly that other people could have noticed. Or the opposite - being so fidgety or restless that you have been moving around a lot more than usual: not at all 9. Thoughts that you would be better off or of hurting yourself in some way: not at all Total score: 13 Source: Developed by Drs. Song Peters, Isael Gtz and colleagues, with an educational desean from [employer]. Thrive Questionnaire Date Thrive assessed: 03/21/25 I am a: Patient Within the past 12 months, did the food you bought not last and you didn't have the money to get more?: Never true Within the past 12 months, did you worry whether your food would run out before you got money to buy more?: Never true Do you have trouble paying for medicines?: No Do you have trouble getting transportation to medical appointments?: No Do you have trouble paying your heating and electricity bill?: No Do you have trouble taking care of your child, family member or friend?: No Do you have trouble with day-to-day activities such as bathing, preparing meals, shopping, managing finances, etc.?: No Are you currently unemployed and looking for a job?: No Are you interested in more education?: No THRIVE Score: 0 AUDIT C Alcohol Use Questionnaire (AUDIT-C) 1. How often do you have a drink containing alcohol?: Never 3. How often do you have six or more drinks on one occasion?: Never Total Score: 0 TIMMY-7 AMB Questionnaire TIMMY-7 Date TIMMY - 7 assessed: 03/21/25 Feeling nervous, anxious, or on edge: 3 = Nearly every day Not being able to stop or control worryin = Not at all Worrying too much about different things: 3 = Nearly every day Trouble relaxin = Nearly every day Being so restless that it is hard to sit still: 3 = Nearly every day Becoming easily annoyed or irritable: 0 = Not at all Feeling afraid as if something awful might happen: 0 = Not at all Total TIMMY-7 score (0-4 normal; 5-9 mild; 10-14 moderate; 15-21 severe): 12 Source: Developed by Drs. Song Peters, Isael Gtz and colleagues, with an educational desean from [employer]. Review of Systems Const Details: CONSTITUTIONAL Malaise HEAD/NECK Negative EAR/NOSE/MOUTH/THROAT Negative RESPIRATORY Shortness of breath CARDIOVASCULAR Negative GASTROINTESTINAL Negative NEUROLOGICAL Negative PSYCHIATRIC Anxious Physical exam (Primary Care) Vital Signs: Last Vital Signs Temp 97.1 F 03/21/25 13:50 Pulse 90 03/21/25 13:50 Pulse Ox 98 03/21/25 13:50 Oxygen Delivery Method Room Air 03/21/25 13:50 BMI result Body Mass Index 49.7 GENERAL Well developed, obese, in no apparent distress HEENT Head-Normocephalic Eyes- PERRLA, EOMI, Conjuctiva clear, lids WNL Ears- Canals clear, TMs WNL Mouth/Throat-No lesions, no erythema, no exudate Neck- Supple, No lymphadenopathy, thyroid WNL RESPIRATORY Normal I:E, expiratory wheezing, no rales or rhonchi CARDIOVASCULAR Regular, rate and rhythm, No murmurs or rubs GASTROINTESTINAL Soft, nontender, normal bowel sounds, no masses NEUROLOGICAL Gait slow with walker PSYCHIATRIC Oriented to person, place and time Mood and affect Anxious Appearance WNL Speech WNL Thought processes WNL Tobacco/Smoking Status: Tobacco use Status Tobacco use date assessed 03/21/25 03/21/25 13:48 Patient Tobacco Use Status Former Tobacco user 03/21/25 13:48 Tobacco use type Cigarette 03/21/25 13:48 e-Cigarette/Vaping Use Never Used 03/21/25 13:48 PHQ-9: PHQ-9 Score PHQ-9: Total score 13 03/21/25 15:03 Thrive Assessment: Date of Thrive Assessment Date Thrive assessed 03/21/25 03/21/25 13:48 Coding Level of Care Code Established Pt Est Pt Level 3 (06920) Patient Type Established Diagnoses Chronic obstructive pulmonary disease with acute exacerbation J44.1 COPD type: COPD with acute exacerbation Time Spent (min) 25 Comment Time spend reviewing chart, patient education, H&P and orders and FU Assessment & Plan Assessment & Plan (1) COPD (chronic obstructive pulmonary disease): Code(s): J44.9 - Chronic obstructive pulmonary disease, unspecified Category: Medical Qualifiers: COPD type: COPD with acute exacerbation Qualified Code(s): J44.1 - Chronic obstructive pulmonary disease with (acute) exacerbation Plan: Will give Prednisone. Patient to use Flovent BID and Albuterol inhaler 3-4 times daily. Will refer to Pulmonary. Patient to follow up with PCP in 6-8 weeks or sooner if symptoms persist or worsen. Orders: Referrals Pulmonology Referral J44.9 - Chronic obstructive pulmonary disease, unspecified Medications: New prednisone 20 mg PO BID 14 tabs 0RF for asthma exacerbation
[2025-03-21 13:50] VITALS: PULSE 90; TEMP 36.2; O2SAT 98; BMI 49.7
--- OUTSIDE RECORDS SUMMARY | 2025-03-21 14:37 | XMS_ITS | Encounter Summary ---
Author Organization [facility] Address [address] [place] [address] Phone Care Team Providers Care Production Control Supervisor Name Role Phone Tavo Huber MD Primary Care Provider Andi Mejia MD Primary Care Provider [phone] Encounter Details Date Type Department Care Team (Late st Contact Info) Description 10/23/2022 Transcribe Orders [facility] Specimen Processing [address] [place] [address] Andi Mejia MD [address] [facility] [address] [place] [address] [email or web address] Bipolar 1 disorder (Primary Dx) Social History Tobacco Use Types Packs/Day Years Used Date Smoking Tobacco: Never Assessed Comments Unknown Sex and Gender Information Value Date Recorded Sex Assigned at Female 11/19/2022 4:52 AM EDT Legal Sex Female 10:34 PM EDT Gender Identity Female 11/19/2022 4:52 AM EDT Sexual Orientation Not on file documented as of this encounter Plan of Treatment Not on file documented as of this encounter Results * (ABNORMAL) CBC and differential (10/23/2022 6:20 AM EDT) WBC 8.33 4.00 - 11.00 K/uL [facility] RBC 3.40(L) 3.72 - 5.30 M/uL [facility] HGB 9.3(L) 11.4 - 15.9 g/dL [facility] HCT 29.5(L) 34.2 - 46.8 % [facility] PLT 178 140 - 430 K/uL [facility] MCV 86.8 78.0 - 97.0 fL [facility] MCH 27.4 25.0 - 33.0 pg [facility] MCHC 31.5(L) 32.0 - 36.0 g/dL [facility] RDW 14.3 11.0 - 16.0 % [facility] MPV 9.2 8.4 - 12.8 fl [facility] DIFF METHOD Auto [facility] NEUTS 71.2 43.0 - 75.0 % [facility] LYMPHS 13.7(L) 18.2 - 47.4 % [facility] MONOS 11.5(H) 4.00 - 11.00 % [facility] EOS 2.6 0.0 - 8.0 % [facility] BASOS 0.4 0.0 - 2.0 % [facility] Granulocytes, immature (%) 0.6 0.0 - 0.9 % [facility] ABSOLUTE NEUTS 5.93 1.80 - 7.70 K/uL [facility] ABSOLUTE LYMPHS 1.14 1.00 - 3.10 K/uL [facility] ABSOLUTE MONOS 0.96(H) 0.20 - 0.80 K/uL [facility] ABSOLUTE EOS 0.22 0.00 - 0.80 K/uL [facility] ABSOLUTE BASOS 0.03 0.00 - 0.09 K/uL [facility] Granulocytes, immature 0.05 0.00 - 0.05 K/uL [facility] Blood 10/23/2022 6:20 AM EDT 10/23/2022 8:31 AM EDT us Andi Mejia MD LAB BLOOD ORDERABLES Final Resul t [facility] [address] [place] [address] * (ABNORMAL) Basic metabolic panel (10/23/2022 6:20 AM EDT) SODIUM 139 133 - 146 mmol/L [facility] CHLORIDE 95(L) 96 - 108 mmol/L [facility] POTASSIUM 4.6 3.3 - 5.1 mmol/L [facility] CO2 30 21 - 35 mmol/L [facility] BUN 102(H) 6 - 19 mg/dL [facility] CREATININE 2.50(H) 0.5 - 1.5 mg/dL [facility] GLUCOSE 137(H) 70 - 99 mg/dL [facility] CALCIUM 8.7 8.4 - 10.3 mg/dL [facility] EGFR 21(L) >59 mL/min/1.7 3m2 [facility] Comment:Estimated glomerular filtration rate calculated using the CKD-EPI refit equation. ANION GAP 19 10 - 20 mmol/L [facility] 10/23/2022 6:20 AM EDT 10/23/2022 8:31 AM EDT us Andi Mejia MD LAB BLOOD ORDERABLES Final Resul t Performing Organization Address City/State/[facility] Co de Phone Number [address] [address] documented in this encounter Visit Diagnoses Diagnosis Bipolar 1 disorder- Primary documented in this encounter Additional Health Concerns Infection Onset Date Last Indicated Resolved Time CoV-Risk 11/13/2022 11/13/2022 11/24/2022 1:23 AM EDT documented as of this encounter Care Teams Production Control Supervisor Relationship Specialty Start Date End Date Tavo Huber MD [address] [place] [address] [place] [address] PCP - General Internal Medicine 12/21/20 11/16/22 Andi Mejia MD [address] [place] [address] [place] [address] [email or web address] PCP - General Family Medicine 11/17/22 documented as of this encounter Additional Source Comments The information contained in this document represents components of the legal health record. It is not the complete legal health record.[facility]
--- OUTSIDE RECORDS SUMMARY | 2025-03-21 14:37 | XMS_ITS | Clinical Summary ---
Author Organization [facility] Address [address] [place] [address] Phone Care Team Providers Care Shanker Out Name Role Phone Tavo Huber MD Primary Care Provider Allergies No known active allergies Social History [...] Panel) 07/02/2022 Colorectal Cancer Screening: Colonoscopy 07/02/2022 HIV Screening 07/02/2022 Hepatitis C Screening 07/02/2022 Social Influencers of Health Screening 07/02/2022 Depression Screening 07/20/2024 Diabetes: Annual Urine Albumin-Creatinine Ratio (uACR) 09/27/2024 Diabetes: Blood Sugar Control Test (HGBA1C) 09/27/2024 Hypertension/CHF/CAD Annual BMP Blood Test 09/27/2024 COVID-19 Vaccine ( season) 2025 Influenza Vaccine (#1) 2025 , 12/15/2021, 06/03/2018, [...] patient's age to complete this topic Insurance [facility] [employer] Advance Directives Documents on File Type Date Recorded 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
--- OUTSIDE RECORDS SUMMARY | 2025-03-21 14:37 | XMS_ITS | Clinical Summary ---
Author Organization [facility] Address [address] [place] [address] Phone Care Team Providers Care Laborer Demolition Name Role Phone Tavo Huber MD Primary Care Provider [phone] Allergies Active Allergy Reactions Criticality Noted Date [...] patient's age to complete this topic Insurance [facility] [place] [address] [place] [facility] Medicaid Care Teams Laborer Demolition Relationship Specialty Start Date End Date Tavo Huber MD [address] [place] PCP - General 07/30/20
--- OUTSIDE RECORDS SUMMARY | 2025-03-21 14:37 | XMS_ITS | Encounter Summary ---
Author Organization [facility] Address [address] [place] [address] Phone Care Team Providers Care Tube Repairer Name Role Phone Andi Mejia MD Primary Care Provider [phone] Encounter Details Date Type Department Care Team (Late st Contact Info) Description 11/23/2022 Procedure Pass [facility], Ct Scan - [facility] [address] [place] [address] Social History Tobacco Use Types Packs/Day Years Used Date Smoking Tobacco: Unknown Alcohol Use Standard Drinks/Week Comments Not Currently 0 (1 standard drink = 0.6 oz pur e alcohol) Education Answer Date Recorded Are you interested in more education? Not on madeline e 11/14/2022 Are you concerned about learning? Not on file 11/14/2022 No 11/14/2022 No 11/14/2022 Intimate Partner Violence Answer Date R ecorded Are you denied basic needs s uch as food, clothing, or medical care? No 11/23/2022 In the past 12 months have y ou been in a relationship with a person who hurts, threatens, or tries to control you? No 11/23/2022 Are you denied basic needs s uch as food, clothing, or medical care? No 11/23/2022 In the past 12 months have y ou been in a relationship with a person who hurts, threatens, or tries to control you? No 11/23/2022 Comments Unknown Sex and Gender Information Value Date Recorded Sex Assigned at Female 11/19/2022 4:52 AM EDT Legal Sex Female 10:34 PM EDT Gender Identity Female 11/19/2022 4:52 AM EDT Sexual Orientation Not on file documented as of this encounter Functional Status * Calculated C-SSRS Risk Score (Lifetime/Recent) Answer Date of Assessment Author No Risk Indicated 11/23/2022 9:30 PM EDT Corrie Gilmore RN * [place] Suicide Severity Rating Scale (Screener/Recent Self-Report) Question Answer Date of Assessment Author 1. Wish to be (Past 1 Month) No 023 9:30 PM EDT Song Gilmore RN 2. Non-Specific Active Suici weston Thoughts (Past 1 Month) No 11/23/2022 9:30 PM EDT Song Gilmore RN 6. Suicidal Behavior (Lifetime) No 9:30 PM EDT Song Gilmore RN documented as of this encounter Plan of Treatment Not on file documented as of this encounter Visit Diagnoses Not on filedocumented in this encounter Additional Health Concerns Infection Onset Date Last Indicated Resolved Time CoV-Risk 11/13/2022 11/13/2022 11/24/2022 1:23 AM EDT documented as of this encounter Care Teams Tube Repairer Relationship Specialty Start Date End Date Andi Mejia MD [email or web address] PCP - General Family Medicine 11/17/22 documented as of this encounter Additional Source Comments The information contained in this document represents components of the legal health record. It is not the complete legal health record.[facility]
--- OUTSIDE RECORDS SUMMARY | 2025-03-21 14:37 | XMS_ITS | Encounter Summary ---
Author Organization [facility] Address [address] [place] [phone] Phone Care Team Providers Care Science Teacher Name Role Phone Andi Mejia MD Primary Care Provider [phone] Encounter Details Date Type Department Care Team (Late st Contact Info) Description 11/23/2022 Procedure Pass [facility], Ct Scan - [facility] [address] [place] [address] Social History Tobacco Use Types Packs/Day Years [...] 9:30 PM EDT Corrie Gilmore RN * [place] Suicide Severity Rating Scale (Screener/Recent Self-Report) Question [...] documented as of this encounter Care Teams Science Teacher Relationship Specialty Start Date End Date Andi Mejia MD [email or web address] PCP - General Family Medicine 11/17/22 documented as of this encounter Additional Source Comments The information contained in this document represents components of the legal health record. It is not the complete legal health record.[facility]
--- OUTSIDE RECORDS SUMMARY | 2025-03-21 14:37 | XMS_ITS | Clinical Summary ---
Author Organization [facility] Address [address] [place] [address] Phone Care Team Providers Care Manager Activities Name Role Phone Andi Mejia MD Primary Care Provider [phone] Allergies Active Allergy Reactions Criticality Noted Date Comments Ibuprofen 12/21/2020 Morphine 12/21/2020 Acetaminophen 12/21/2020 Medications budesonide (RHINOCORT AQUA) 32 mcg/actuation nasal spray 1 spray by Nasal route daily. Active furosemide (LASIX) 40 MG tablet Take 40 mg by mouth. Active omeprazole (PRILOSEC) 40 MG capsule Take 20 mg by mouth daily. Active FLUoxetine (PROZAC) 40 MG capsule Take 40 mg by mouth daily. Active insulin lispro (ADMELOG, HUMALOG) 100 unit/mL injection vial Inject under the skin 3 (three) times a day before meals. Active isosorbide mononitrate (IMDUR) 30 MG 24 hr tablet Take 30 mg by mouth daily. Active metoprolol succinate (TOPROL-XL) 50 MG 24 hr tablet Take 50 mg by mouth daily. Active amLODIPine (NORVASC) 10 MG tablet Take 10 mg by mouth daily. Active insulin glargine (LANTUS) 100 unit/mL injection vial Inject 80 Units under the skin nightly at bedtime. Active simvastatin (ZOCOR) 20 MG tablet Take 20 mg by mouth nightly at bedtime. Active tiZANidine (ZANAFLEX) 4 MG capsule Take 4 mg by mouth nightly at bedtime. Active pregabalin (LYRICA) 100 MG capsule Take 100 mg by mouth 2 (two) times a day. Active albuterol 90 mcg/actuation inhaler Inhale 2 puffs into the lungs every 4 (four) hours as needed for wheezing. Active traMADoL (ULTRAM) 50 mg tablet Take 100 mg by mouth every 8 (eight) hours as needed for pain (specific location in comments). Active Active Problems No known active problems Social History Tobacco Use Types Packs/Day Years Used Date Smoking Tobacco: Unknown Tobacco Cessation:Counseling Given: Not Answered Alcohol Use Standard Drinks/Week Comments Not Currently 0 (1 standard drink = 0.6 oz pur e alcohol) Education Answer Date Recorded Are you interested in more education? Not on madeline e 11/14/2022 Are you concerned about learning? Not on file 11/14/2022 No 11/14/2022 No 11/14/2022 Digital Access Answer Date Recorded No 12/15/2022 No 12/15/2022 No 12/15/2022 Reliable internet access at home? Not on file 12/15/2022 Device with a working camera? Not on file Intimate Partner Violence Answer Date R ecorded [...] AM EDT Sexual Orientation Not on file Last Filed Vital Signs Vital Sign Reading Time Taken Comments Blood Pressure 113/44 11/23/2022 9:25 PM EDT Pulse 68 11/24/2022 1:07 AM EDT Temperature 36.6 C (97.9 F) 11/24/2022 1:07 AM EDT Respiratory Rate 18 11/24/2022 1:07 AM EDT Oxygen Saturation 96% 11/24/2022 1:07 AM EDT Inhaled Oxygen Concentration - - Weight 113.4 kg (250 lb) 11/19/2022 4:48 AM EDT Height - - Body Mass Index - - Plan of Treatment Not on file Medical Devices Not on file [place] [address] [place] [address] [facility] [place] [address] [facility] Advance Directives For more information, please contact: [phone] (9AM - 5PM [facility], Thursday-Thursday) Documents on File Type Date Recorded Patient 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 It is not the complete legal health record.[facility]
== END 2025-03-21 14:07 | disposition home or self-care (01) ==
LOC: HO.HMCHD 13:23
PROVIDERS: PCP Physician Assistant; Visit Provider Physician Assistant Medical
DX: J44.1 Chronic obstructive pulmonary disease with (acute) exacerbation (principal)

== ENCOUNTER → 2025-03-21 13:22 | Outpatient (BNVA) | payer OTHER, SELFPAY | PROVIDERS: PCP Physician Assistant; Visit Provider Physician Assistant Medical | DX: J44.1 Chronic obstructive pulmonary disease with (acute) exacerbation (principal); Z79.899 Other long term (current) drug therapy | CPT/HCPCS: 99212 ==

== ENCOUNTER 2025-03-29 13:00 | Outpatient (RCR) | payer OTHER, SELFPAY | END 2025-05-30 16:58 | disposition home or self-care (01) | LOC: HO.WCC 13:00 | PROVIDERS: PCP Physician Assistant; Visit Provider Surgery Surgical Oncology | DX: E11.622 Type 2 diabetes mellitus with other skin ulcer (principal); L89.329 Pressure ulcer of left buttock, unspecified stage; L89.319 Pressure ulcer of right buttock, unspecified stage; L24.A2 Irritant contact dermatitis due to fecal, urinary or dual incontinence; L30.4 Erythema intertrigo; B37.2 Candidiasis of skin and nail; E11.40 Type 2 diabetes mellitus with diabetic neuropathy, unspecified; E11.51 Type 2 diabetes mellitus with diabetic peripheral angiopathy without gangrene; I11.0 Hypertensive heart disease with heart failure; I50.9 Heart failure, unspecified; Z87.891 Personal history of nicotine dependence | CPT/HCPCS: 97597; 99213 ==

== ENCOUNTER 2025-04-25 11:06 | Outpatient (REF) | payer OTHER, SELFPAY ==
--- NOTE | ~2025-04-25 | XR_ITS ---
XR KNEE BERRY 3V HISTORY: Bilateral knee pain. COMPARISON: No prior. TECHNIQUE: AP, lateral and patellofemoral views each knee. FINDINGS: RIGHT KNEE: No fracture, dislocation, or suspicious bone lesion. There is moderate medial compartment joint space narrowing, and mild lateral and patellofemoral compartment narrowing. There is mild varus angulation of the joint. Normal patellar alignment. No abnormal patellar tilt. No evidence of joint effusion. Soft tissues demonstrate diffuse vascular calcifications but are otherwise normal. LEFT KNEE: No fracture, dislocation, or suspicious bone lesion. There is mild to moderate medial compartment joint space narrowing, and mild lateral and patellofemoral compartment narrowing. Normal alignment of the joint. Normal patellar alignment. No abnormal patellar tilt. There is a small to moderate suprapatellar joint effusion. Soft tissues demonstrate diffuse vascular calcifications but are otherwise normal. XR/XR Knee Berry 3V IMPRESSION: RIGHT KNEE: 1. No acute bony or soft tissue abnormality. 2. Moderate medial compartment osteoarthrosis, and mild changes in the lateral and patellofemoral compartment. 3. No significant joint effusion. LEFT KNEE: 1. No acute bony or soft tissue abnormality. 2. Mild to moderate medial compartment osteoarthrosis and mild changes in the lateral and patellofemoral compartment. 3. Small to moderate-sized suprapatellar joint effusion. Electronically signed by: Mic Daly MD 04/25/2025 02:36 PM EDT
== END 2025-04-25 11:07 | disposition home or self-care (01) ==
LOC: HO.HOSX 11:06
PROVIDERS: Visit Provider Physician Assistant
DX: M17.0 Bilateral primary osteoarthritis of knee (principal)
CPT/HCPCS: 73562; 99212

== ENCOUNTER 2025-04-25 13:40 | Outpatient (AMB) | payer OTHER, SELFPAY ==
--- NOTE | 2025-04-25 14:08 | A.OFFVIS_ITS ---
Vital Signs 04/25/25 14:14 Height 5 ft 2 in Weight 275 lb BMI 50.3 Intake Visit Reasons: BRANCH LEAD-Bilat knee OA Intake Note: Lupis is a 64 year old female who presents with complaints of progressively worsening bilateral knee pains. The patient states that her pains have gotten worse over the last few years. She has failed the last 3 months of conservative treatment which has included a home exercise program, physical therapy exercises, topical creams and anti-inflammatory medicines. The patient states that she can not tolerate Tylenol. The patient is concerned about the affects of cortisone injections on her diabetes. She has not had a viscosupplementation injection. She has tried heat and ice which gave her minimal relief. At this point her bilateral knee pains are interfering with her activities of daily living and her ability to sleep well through the night. The patient does walk with a rolling walker because of her pain. Allergies ibuprofen Allergy (Intermediate, Verified 04/25/25 14:14) vomiting, itching acetaminophen (Tylenol) Allergy (Unknown, Verified 04/25/25 14:14) Unknown codeine Adverse Reaction (Severe, Verified 04/25/25 14:14) Anaphylaxis morphine Adverse Reaction (Intermediate, Verified 04/25/25 14:14) vomiting vancomycin Adverse Reaction (Intermediate, Verified 04/25/25 14:14) Itching Medication List - Last Reconciled 04/25/25 by Mike Valdez MD [ADULT PULL UP XL 4 per day NS] allopurinol 100 mg PO DAILY BD Insulin Syringe (half unit) (insulin syr/ndl U100 half dionna) As directed NS blood-glucose meter (FreeStyle Lite Meter kit) As directed checks POC 4 X/day bumetanide 2 mg PO DAILY 90 days buspirone 30 mg PO BID [Chux 3x/day] clonidine HCl 0.1 mg PO TID Comfort EZ Pen [place] (pen needle, diabetic) 4 times daily NS [Commode bags 4x/day NS] diclofenac sodium 1% 4 grams topical QID PRN duloxetine 60 mg PO DAILY FreeStyle Lancets (lancets) four times daily NS FreeStyle Lucy 3 [place] (blood-glucose,family and consumer sciences teacher,cont) As directed NS FreeStyle Lucy 3 Sensor (blood-glucose sensor) every 14 days NS FreeStyle Lite Strips (blood sugar diagnostic) four times daily NS gabapentin 400 mg PO BID@0900,1500 insulin glargine (Lantus Solostar U-100 Insulin) 60 units subcut BEDTIME insulin lispro (Humalog U-100 Insulin) 4 units See Protocol subcut TID insulin syringe-needle U-100 (BD Insulin Syringe Ultra-Fine) insulin syringe-needle U-100 (BD Insulin Syringe Ultra-Fine) Four times daily isosorbide mononitrate ER 60 mg (2 x 30 mg) PO DAILY ketorolac 0.5% 1 drp ophthalmic (eye) TID linaclotide (Linzess) 290 mcg PO DAILY lorazepam 0.5 mg PO TID PRN metoprolol succinate ER 50 mg PO DAILY [nitrile gloves 4x/day] pantoprazole 20 mg PO BEDTIME@1800 pen needle, diabetic (Comfort EZ Pen [place]) four times daily pen needle, diabetic four times daily prazosin 1 mg PO BEDTIME prednisone 20 mg PO BID [pressure relief cushion daily] risperidone 0.5 mg PO BID simvastatin 20 mg PO BEDTIME tirzepatide (weight loss) (Zepbound) 5 mg subcut WE trazodone 100 mg (2 x 50 mg) PO BEDTIME [facility] Medical History (Updated 04/25/25 @ 14:33 by Mike Valdez MD) Diabetic nephropathy Cataracts, bilateral DANIEL (obstructive sleep apnea) COPD (chronic obstructive pulmonary disease) NICM (nonischemic cardiomyopathy) Hypertension Mood disorder Elevated d-dimer FELICIA (acute kidney injury) Abdominal pain Constipation Chronic respiratory failure with hypoxia Stercoral colitis Decubitus ulcer Hypoxia CHF exacerbation MDD (major depressive disorder), recurrent episode, moderate Adjustment disorder with mixed anxiety and depressed mood Panic disorder Cellulitis of right lower extremity Stasis dermatitis of both legs Asthma Hyperglycemia due to diabetes mellitus Congestive heart failure Obesity hypoventilation syndrome CKD (chronic kidney disease) stage 3, GFR 30-59 ml/min Acute on chronic combined systolic and diastolic CHF (congestive heart failure) Morbid obesity Diabetic neuropathy, painful Chronic pain High cholesterol Depression Diabetes Surgical History History of surgery Hx of cholecystectomy Family History Mother HTN (hypertension) Diabetes CAD (coronary artery disease) Father HTN (hypertension) Diabetes CAD (coronary artery disease) Maternal Grandmother CAD (coronary artery disease) Social History Household Members: None Household Members Other:: GRANDSON Housing: House Housing Other:: with welfare manager Do you presently have visiting nurse or other home services: Yes Unable to assess alcohol history related to: Unknown Alcohol intake: current Alcohol intake frequency: holidays/special occasions only Alcohol type: wine Comment: 1:1 Patient Tobacco Use Status: Former Tobacco user Tobacco use type: Cigarette Years Smoked: 38 e-Cigarette/Vaping Use: Never Used Second Hand Smoke Exposure: No Substance Use Type: Former Substance User Advance Directives Date on File: 04/30/23 service: No Current occupational status: disabled Current occupation: rt handed Cognitive needs: Yes (walker, cane) Hearing needs: No Vision needs: Yes (Rx glasses) Physical Exam Vital Signs: BMI result Body Mass Index 50.3 Const Other: Well-nourished well-developed very friendly female awake alert and oriented x3 in no acute distress Extrem Other: Bilateral knee examination shows minimal effusions, palpable crepitus with range of motion, pain with range of motion, no instability Results Reviewed Results Reviewed: Standing full weight-bearing x-rays of the patient's bilateral knee show mild to moderate diffuse joint space narrowing most significant in the medial compartments, subchondral sclerosis, no acute bony abnormalities Assessment & Plan Assessment & Plan (1) Osteoarthritis of left knee: Code(s): M17.12 - Unilateral primary osteoarthritis, left knee Category: Medical (2) Osteoarthritis of right knee: Code(s): M17.11 - Unilateral primary osteoarthritis, right knee Category: Medical Plan Ms. Mueller presents with bilateral knee pains due to osteoarthritis. I had a lengthy discussion with the patient regarding the treatment options. She wishes to hold off on surgery if at all possible. I agree with this plan. I will see if the patient's insurance company will cover a viscosupplementation injection, such as Durolane, for both of her knees. I will see her back once the injections are available. Feel free to call me at any time should questions re garding her orthopedic management arise. I spent 20 minutes in reviewing the patient's records and imaging studies, seeing the patient and documenting in the medical record. Orders: Orders XR knee LT 3V Today GUADALUPE Ross-C M25.569 - Pain in unspecified knee XR Knee Berry 3V Today Mike Valdez MD M25.561 - Pain in right knee, M25.562 - Pain in left knee XR knee RT 3V Today Rose Rodriguez PA-C M25.569 - Pain in unspecified knee Coding Level of Care Code New Pt Level 3 (74223) Complex EM visit Add On G2211 Diagnoses Osteoarthritis of left knee M17.12 Osteoarthritis of right knee M17.11
[2025-04-25 14:14] VITALS: BMI 50.3
--- OUTSIDE RECORDS SUMMARY | 2025-04-25 16:52 | XMS_ITS | Clinical Summary ---
Author Organization [facility] Address [address] [place] [address] Phone Care Team Providers Care Drapery Installer Name Role Phone Andi Mejia MD Primary Care Provider [phone] Allergies Active Allergy Reactions Criticality Noted Date [...] file Medical Devices Not on file Insurance [place] [address] [facility] [place] [place] [address] [facility] Advance Directives For more information, please contact: [phone] (9AM - 5PM [facility], Thursday-Thursday) Documents on File Type Date Recorded Patient Associate Quality Engineer Expl anation MOLST 11/24/2022 12:57 PM Healthcare Proxy 12/21/20202020 Health care Proxy Care Teams Drapery Installer Relationship Specialty Start Date End Date Andi Mejia MD [email or web address] PCP - General Family Medicine 11/17/22 Additional Source Comments The information contained in this document represents components of the legal health record. It is not the complete legal health record.[facility]
--- OUTSIDE RECORDS SUMMARY | 2025-04-25 16:52 | XMS_ITS | Encounter Summary ---
Author Organization [facility] Address [address] [place] [address] Phone Care Team Providers Care Wraparound Facilitator Name Role Phone Andi Mejia MD Primary Care Provider [phone] Encounter Details Date Type Department Care Team (Late st Contact Info) Description 11/23/2022 Procedure Pass [facility], Ct Scan - [facility] [address] [place] [address] Social History Tobacco Use Types Packs/Day Years [...] 9:30 PM EDT Corrie Gilmore RN * [place] Suicide Severity Rating Scale (Screener/Recent Self-Report) Question [...] documented as of this encounter Care Teams Wraparound Facilitator Relationship Specialty Start Date End Date Andi Mejia MD [email or web address] PCP - General Family Medicine 11/17/22 documented as of this encounter Additional Source Comments The information contained in this document represents components of the legal health record. It is not the complete legal health record.[facility]
--- OUTSIDE RECORDS SUMMARY | 2025-04-25 16:52 | XMS_ITS ---
Author Organization [facility] an d Nursing Support Name Relationship Address Phone Lupis Mueller Guarantor [address] [place] [address] Lupis Mueller Agent [address] [place] [address] Yamileth Mueller Emergency Contact [address] [place] [address] Mueller, Yamileth Personal Relationship [address] [place] [address] Care Team Providers Care Inspector Aide Name Role Phone Orquidea Staples Unavailable Unavailable Rohit Quick Unavailable Unavailable Jonny Jones Unavailable Unavailable Allergies and adverse reactions Code CodeSystem Substance Reaction Severity StartDate Concern Status Morphine and Related Severe 08/01/2023 active 5640 RXNORM Ibuprofen Severe 08/01/2023 active 161 RXNORM Acetaminophen Severe 08/01/2023 active Care Team Name Role Address Phone Organization Dates Jonny Jones PCP [address], [address], [facility] (Office): : [facility] 08/01/2023 - 08/03/2023 Orquidea Staples [address] [place] [address], [address], [place] (Office): : [facility] 08/01/2023 - 08/03/2023 Rohit Quick [address] [facility] [address] [place] [address], [address], [facility] (Office): : : [facility] 08/01/2023 - 08/03/2023 Mental Status Section Date Assessment Total Score Description 08/03/2023 BIMS 14 cognitively int act CAM 0 No delirium ind icated PHQ-9 00 08/03/2023 BIMS 14 cognitively int act CAM 0 No delirium ind icated PHQ-9 02 minimal depress ion Insurance Providers Problems Problem # Description Date of onset Resolved Date Code CodeSystem Concern Status 1 ANXIETY DISORDER, UNSPECIFIED 07/31/[address] active 2 CHRONIC KIDNEY DISEASE, UNSPECIFIED 07/31/[address] active 3 CHRONIC OBSTRUCTIVE PULMONARY DISEASE, UNSPECIFIED 07/31/[address] active 4 CHRONIC SYSTOLIC (CONGESTIVE) HEART FAILURE 07/31/[address] active 5 ESSENTIAL (PRIMARY) HYPERTENSION 07/31/[address] active 6 HYPERLIPIDEMIA, UNSPECIFIED 07/31/[address] active 7 LOCALIZED EDEMA 07/31/[address] active 8 LOCALIZED SWELLING, MASS AND LUMP, HEAD 07/31/[address] active 9 MAJOR DEPRESSIVE DISORDER, RECURRENT, UNSPECIFIED 07/31/[address] active 10 OTHER LACK OF COORDINATION 07/31/[address] active 11 TYPE 2 DIABETES MELLITUS WITHOUT COMPLICATIONS 07/31/[address] active 12 UNSPECIFIED ASTHMA, UNCOMPLICATED 07/31/[address] active 13 UNSPECIFIED FALL, SUBSEQUENT ENCOUNTER 07/31/[address] active Reason for Referral No Reasons for Referral Entered Social History Social History Observation Description Start Date End Date Code Code System Current Smoking Status Tobacco smoking consumption unknown 397306471 SNOMED CT Sex Assigned At Female 1960 41130-3 [facility] Gender Identity Sexual Orientation Vital Signs Code Code System Vitals Name Values and Units Timing Information 2339-0 LOINC Blood Sugar Cczgx=306.0 Units=mg/dL 08/03/2023 64117-7 LOINC Pain Level Value=0.0 08/03/2023 8310-5 LOINC Body Temperature Value=97.7 Units= F 08/03/2023 8462-4 [facility] Blood Pressure-Diastolic Value=52 Un its=mmHg 08/03/2023 8480-6 [facility] Blood Pressure-Systolic Sqtxn=354 Un its=mmHg 08/03/2023 8867-4 [facility] Heart rate Value=87.0 Units=/min 9279-1 [facility] Respiratory Rate Value=18.0 Units=/m in 08/02/2023 70794-5 [facility] O2 % dC Oximetry Value=96.0 Units= % 08/02/2023 52679-1 [facility] Weight Eteev=401.4 Units=Lbs 8302-2 [facility] Height Value=62.0 Units=Inches 08/01/2023
--- OUTSIDE RECORDS SUMMARY | 2025-04-25 16:52 | XMS_ITS | Clinical Summary ---
Author Organization [address] [facility] Address [address] [place] [address] Phone Care Team Providers Care Payroll Analyst Name Role Phone Tavo Huber MD Primary Care Provider [phone] Allergies No known active allergies Social History [...] Breast Cancer Screening 1960 Colorectal Cancer Screening: Colonoscopy 1961 Diabetes: Annual GFR (Glomerular Filtration Rate) 1961 Diabetes: Annual Foot Exam 1971 Diabetes: Annual Retina Eye Exam 1971 DTaP,Tdap,and Td Vaccines (1 - Tdap) 1980 Cervical Cancer Screening: Pap Smear 1982 Zoster Vaccines (1 of 2) 2011 RSV Immunization Adult Patients (1 - Risk 60-74 years 1-dose series) 2021 Cholesterol Screening (Lipid Panel) 07/02/2022 HIV Screening 07/02/2022 Hepatitis C Screening [...] patient's age to complete this topic Insurance [facility] Advance Directives Documents on File Type Date Recorded Patient Receptionist Secretary Expl anation Health Care Decision (hx) 02/25/2022 [...] (hx) 10/14/2020 AD GARCIA DIRECTIVE Care Teams Payroll Analyst Relationship Specialty Start Date End Date Tavo Huber MD [address] [place] [address] Dr Anjelica [place] PCP - General Internal Medicine 10/09/21
--- OUTSIDE RECORDS SUMMARY | 2025-04-25 16:52 | XMS_ITS | Encounter Summary ---
Author Organization [facility] Address [address] [place] [address] Phone Care Team Providers Care Manhole Builder Name Role Phone Andi Mejia MD Primary Care Provider [phone] Encounter Details Date Type Department Care Team (Late st Contact Info) Description 11/23/2022 Procedure Pass [facility], Ct Scan - [facility] [address] [place] [address] Social History Tobacco Use Types Packs/Day Years [...] 9:30 PM EDT Corrie Gilmore RN * [place] Suicide Severity Rating Scale (Screener/Recent Self-Report) Question [...] documented as of this encounter Care Teams Manhole Builder Relationship Specialty Start Date End Date Andi Mejia MD [email or web address] PCP - General Family Medicine 11/17/22 documented as of this encounter Additional Source Comments The information contained in this document represents components of the legal health record. It is not the complete legal health record.[facility]
--- OUTSIDE RECORDS SUMMARY | 2025-04-25 16:52 | XMS_ITS | Encounter Summary ---
Author Organization [facility] Address [address] [place] [address] Phone Care Team Providers Care Vice President Of Consulting Services Name Role Phone Tavo Huber MD Primary Care Provider Andi Mejia MD Primary Care Provider [phone] Encounter Details Date Type Department Care Team (Late st Contact Info) Description 10/23/2022 Transcribe Orders [facility] Specimen Processing [address] [place] [address] Andi Mejia MD [address] [place] [address] [email or web address] Bipolar 1 disorder (Primary Dx) Social History [...] EDT) WBC 8.33 4.00 - 11.00 K/uL [facility] RBC 3.40(L) 3.72 - 5.30 M/uL [facility] HGB 9.3(L) 11.4 - 15.9 g/dL [facility] HCT 29.5(L) 34.2 - 46.8 % [facility] PLT 178 140 - 430 K/uL [facility] MCV 86.8 78.0 - 97.0 fL [facility] MCH 27.4 25.0 - 33.0 pg [facility] MCHC 31.5(L) 32.0 - 36.0 g/dL [facility] RDW 14.3 11.0 - 16.0 % [facility] MPV 9.2 8.4 - 12.8 fl [facility] DIFF METHOD Auto [facility] NEUTS 71.2 43.0 - 75.0 % [facility] LYMPHS 13.7(L) 18.2 - 47.4 % [facility] MONOS 11.5(H) 4.00 - 11.00 % [facility] EOS 2.6 0.0 - 8.0 % [facility] BASOS 0.4 0.0 - 2.0 % [facility] Granulocytes, immature (%) 0.6 0.0 - 0.9 % [facility] ABSOLUTE NEUTS 5.93 1.80 - 7.70 K/uL [facility] ABSOLUTE LYMPHS 1.14 1.00 - 3.10 K/uL [facility] ABSOLUTE MONOS 0.96(H) 0.20 - 0.80 K/uL [facility] ABSOLUTE EOS 0.22 0.00 - 0.80 K/uL [facility] ABSOLUTE BASOS 0.03 0.00 - 0.09 K/uL [facility] Granulocytes, immature 0.05 0.00 - 0.05 K/uL [facility] Blood 10/23/2022 6:20 AM EDT 10/23/2022 8:31 AM EDT us Andi Mejia MD LAB BLOOD ORDERABLES Final Resul t [facility] [address] [place] [address] * (ABNORMAL) Basic metabolic panel (10/23/2022 6:20 AM EDT) SODIUM 139 133 - 146 mmol/L [facility] CHLORIDE 95(L) 96 - 108 mmol/L [facility] POTASSIUM 4.6 3.3 - 5.1 mmol/L [facility] CO2 30 21 - 35 mmol/L [facility] BUN 102(H) 6 - 19 mg/dL [facility] CREATININE 2.50(H) 0.5 - 1.5 mg/dL [facility] GLUCOSE 137(H) 70 - 99 mg/dL [facility] CALCIUM 8.7 8.4 - 10.3 mg/dL [facility] EGFR 21(L) >59 mL/min/1.7 3m2 [facility] Comment:Estimated glomerular filtration rate calculated using the CKD-EPI refit equation. ANION GAP 19 10 - 20 mmol/L [facility] 10/23/2022 6:20 AM EDT 10/23/2022 8:31 AM EDT us Andi Mejia MD LAB BLOOD ORDERABLES Final Resul t Performing Organization Address City/State/[facility] Co de Phone Number [address] [address] documented in this encounter Visit Diagnoses Diagnosis Bipolar 1 disorder- Primary documented in this encounter Additional Health Concerns Infection Onset Date Last Indicated Resolved Time CoV-Risk 11/13/2022 11/13/2022 11/24/2022 1:23 AM EDT documented as of this encounter Care Teams Vice President Of Consulting Services Relationship Specialty Start Date End Date Tavo Huber MD [address] [place] [address] [place] [address] PCP - General Internal Medicine 12/21/20 11/16/22 Andi Mejia MD [address] [place] [address] [place] [address] [email or web address] PCP - General Family Medicine 11/17/22 documented as of this encounter Additional Source Comments The information contained in this document represents components of the legal health record. It is not the complete legal health record.[facility]
== END 2025-04-25 14:29 | disposition home or self-care (01) ==
LOC: HO.HOS 13:41
PROVIDERS: PCP Physician Assistant; Supervising Provider Orthopaedic Surgery; Visit Provider Orthopaedic Surgery
DX: M17.0 Bilateral primary osteoarthritis of knee (principal)
CPT/HCPCS: 99213

== ENCOUNTER → 2025-04-25 13:43 | Outpatient (BNV) | payer OTHER, SELFPAY | PROVIDERS: Visit Provider Radiology Diagnostic Radiology | DX: M17.0 Bilateral primary osteoarthritis of knee (principal); M25.462 Effusion, left knee | CPT/HCPCS: 73562 ==

== ENCOUNTER 2025-05-09 13:15 | Outpatient (REF) | payer OTHER, SELFPAY ==
--- NOTE | ~2025-05-09 | XR_ITS ---
EXAMINATION: XR CHEST CLINICAL INFORMATION: R06.02 - Shortness of breath COMPARISON: TECHNIQUE: PA and lateral views FINDINGS: There is a meniscal shaped opacity left lower hemithorax. Prominence of the interstitial lung markings. No hyperinflation. Cardiomediastinal silhouette size is prominent, unchanged. No pneumothorax. Calcified plaque aortic arch. Multilevel thoracic and upper lumbar spondylosis. Patient's large body habitus/obesity. Vascular calcifications in the axillary region. XR/XR chest 2V IMPRESSION: Left-sided pleural effusion, small to moderate volume and questionable right-sided pleural effusion with mild interstitial lung edema. Cardiomegaly, mild. Atherosclerosis disease, peripheral. Electronically signed by: Don Hays MD 05/09/2025 03:15 PM EDT
[2025-05-09 17:17] LABS: Alanine Aminotransferase 10 U/L (0-31); Albumin Level 4.1 g/dL (3.5-5.0); Alkaline Phosphatase 112 U/L (39-117); Anion Gap 13 (12-20); Aspartate Amino Transferase 15 U/L (5-31); Blood Urea Nitrogen 31 mg/dL (9-16); Calcium 8.5 mg/dL (8.4-10.2); Carbon Dioxide 28 mmol/L (22-29); Chloride 106 mmol/L (96-108); Cholesterol 127 mg/dL (<200); Estimated Glomerular Filt Rate 21; HDL Cholesterol 28 mg/dL (>40); Potassium 4.8 mmol/L (3.3-5.1); Sodium 142 mmol/L (135-145); Total Protein 6.5 g/dL (6.5-8.0); Triglycerides 290 mg/dL (<150)
[2025-05-09 18:21] LABS: NT Pro B Type Natriuretic Pept 699.4 pg/mL (<300)
--- OUTSIDE RECORDS SUMMARY | 2025-05-09 19:13 | XMS_ITS | Data Portability ---
Author Organization [facility], Main Office Address [address], [address] [place] [address] Care Team Providers Care Market Intelligence Consultant Name Role Phone SISI WATSON Primary Care Provider [phone] [facility] ([facility]) OTHER Assessment Encounter Date Assessment Date Assessment LastModified by Organization Details LastModified Time 11/17/2022 11/17/2022 11/13/22 wbc 11.9, hgb 9.9, plt 226, na 140, k 4.9, bun 103, creat 3.30, LFTs normal [email or web address] Not available 11/17/2022 13:30:40 11/24/2022 11/24/2022 11/13/22 [...] Recorded Time Chronic kidney disease stage 3A 449333445 Active 2022 Andi Mejia MD [address], [address], [place], [address], [facility] 3 09:24:07 Morbid obesity 807862492 Active 2022 Andi Mejia MD [address], [address], [place], [address], [facility] 3 09:29:42 Chronic combined systolic and diastolic heart failure 9380404040747 00 Active 2022 Andi Mejia MD [address], [address], [place], [address], [facility] 3 09:29:52 Nonischemic congestive cardiomyopa thy 657372209420 Active 2022 Andi Mejia MD [address], [address], [place], [address], [facility] 3 09:30:08 Anxiety 13448229 Active 2022 Andi Mejia MD [address], [address], [place], [address], [facility] 3 09:30:15 Depressive disorder 75074239 Active 2022 Andi Mejia MD [address], [address], [place], [address], [facility] 3 09:30:19 Asthma 312385772 Active 2022 Andi Mejia MD [address], [address], [place], [address], [facility] 3 09:30:26 Chronic pain 41494887 Active 2022 Andi Mejia MD [address], [address], [place], [address], [facility] 3 09:30:32 Chronic constipatio n 970954366 Active 2022 Andi Mejia MD [address], [address], [place], [address], [facility] 3 09:30:40 Chronic obstructive pulmonary disease 23263914 Active 2022 Andi Mejia MD [address], [address], [place], [address], [facility] 3 09:30:44 Diabetic peripheral neuropathy 201232927 Active 2022 Andi Mejia MD [address], [address], [place], [address], [facility] 3 09:30:56 Diabetes mellitus 80767712 Active 2022 Andi Mejia MD [address], [address], [place], [address], [facility] 3 09:31:01 Mixed hyperlipide matilda 547867272 Active 2022 Andi Mejia MD [address], [address], [place], [address], [facility] 3 09:31:09 Essential hypertensio n 02173508 Active 2022 Andi Mejia MD [address], [address], [place], [address], [facility] 3 09:31:15 Obstructive sleep apnea syndrome 21172247 Active 2022 Andi Mejia MD [address], [address], [place], [address], [facility] 3 09:31:20 Panic disorder 835713309 Active 2022 Andi Mejia MD [address], [address], [place], [address], [facility] 3 09:31:26 Coronary arterioscle rosis 92214149 Active 2022 Andi Mejia MD [address], [address], [place], [address], [facility] 3 09:31:30 Chronic kidney disease stage 4 435797583 Active 2022 Carolina Dennis MD [address], [address], [place], [address], [facility] 3 18:36:56 Acute hyponatremi a 6905038 Active 2022 Carolina Dennis MD [address] [facility], [address], [place], [address], [facility] 3 18:43:11 Asthenia 66973569 Active 2022 Carolina Dennis MD [address] [facility] [facility], [address], [place], [address], [facility] 3 18:43:57 Problem Notes None recorded. Medical Equipment None Reported. Allergies Allergen ID Allergen Name Allergen Category Reaction Reaction Severity Criticality Documentation Date Start Date Code Code System Note Provider Name and Address Organization Details Recorded Time 61007 ibuprofen medicatio n Not available Not available Not available 10/08/2022 5640 RxBlake Mejia MD [address] [facility], [address], [place], [address], [facility] 3 09:16:39 28051 Tylenol medicatio n Not available Not available Not available 10/08/2022 3 RxBlake Mejia MD [address] [facility], [address], [place], [address], [facility] [email or web address] 3 09:16:43 77200 morphine medicatio n Not available Not available Not available 10/08/2022 [id number] Magdaleno Mejia MD [address] [facility], [address], [place], [address], [facility] [email or web address] 3 09:16:48 Medications Name Sig Start Date [...] 97.9 [degF] 124/70 mm[Hg] CHAKA Hawkins [address] [facility], [address], [place], [address], [facility] 3 07:57:14 Date Recorded Heart rate Respiratory rate Body temperature Oxygen saturation Oxygen saturation in Arterial blood by Pulse oximetry Provider Name and Address Organization Details Last Updated DateTime 3 74 /min 16 /min 97.8 [degF] 96 % 96 % PEDRO MONAE NP [address] [facility], [address], [place], [address], [facility] 3 15:33:19 Date Recorded Body weight Body mass index (BMI) Body height Heart rate Respiratory rate Body temperature Oxygen saturation Oxygen saturation in Arterial blood by Pulse oximetry Systolic And Diastolic Provider Name and Address Organization Details Last Updated DateTime 3 768717. 54 g 44.6 kg/m2 157.48 cm 80 /min 18 /min 97.6 [degF] 96 % 96 % 148/82 mm[Hg] Carolina Dennis MD [address] [facility], [address], [place], [address], [facility] 3 18:00:03 Social History Question Answer Notes LastModified by Organizat ion Details LastModified Time Tobacco Smoking Status Former Smoker quit 1999 30+ pack year hx Andi Mejia MD [address] [facility], [address], [place], [address], [facility] 10/08/2022 11:59:39 Do You Have An Advance Directive? Yes Information not available 10/08/2022 What Is Your Code Status? Full Code Information not available 10/08/2022 Where Do You Live? Apartment Information not available 11/24/2022 Legal Guardian? No Information not available 11/24/2022 Do You Have A Medical Power Of Checking Department Supervisor? Yes Information not available 11/24/2022 What Was [...] Recorded Time pneumococcal polysaccharide PPV23 [address] [facility] 09/23/2023 15:30:16 pneumococcal polysaccharide PPV23 2 completed [facility] 09/23/2023 15:31:52 Past Encounters Encounter ID Performer Location Encounter Start Date Encounter Closed Date Diagnosis/Indication Diagnosis SNOMED-CT Code Diagnosis ICD10 Code Diagnosis IMO Codes Diagnosis Note [id number] Andi Mejia MD [facility] on [address] [place] [address] 10/08/2022 09:16:00 10/13/2022 13:18:32 Acute kidney injury 37183090 N17.8 ARF on CRF stage 3 at baseline however appear to be stage 4improved with IVFmonitor renal functionav oid nephrotoxi c meds as ablenephro consult Chronic ki dney disease stage 3A 679735406 N18.31 carrying dx of crf stage 3 however appear stage 4 Asthenia 38322836 R53.1 severe deconditio ningPT OT eval and treatmonit or need for increased services in community vs need to transition to LTC Acute hyponatremia 60271 02 E87.1 Ud=146 in hospitalre peat bmp and monitor lytes Morbid obesity 183201196 E66.01 dietary to eval Chronic co mbined systolic and diastolic heart failure 7517468762 98600 I50.42 bumex 2 mg qam 1 mg qpmspirono lactone 25 mg bidmonitor respirator y and fluid statusmoni tor renal function with recent arf on crf Nonischemi c congestive cardiomyopathy 1684702084 04 I42.0 added to PMHcontinu e current meds Anxiety 27771269 F41.1 fluoxetine 40 mg qdrisperda l 1 mg bid question dx of bipolarto contact PCP for full dx listpsych to evalmonito r for behaviors Asthma 264345861 J45.99 8 at baselineal buterol MDI prn Depressive disorder 3548 9007 F33.8 see above Chronic pain 20325617 G8 9.29 gabapentin 400 mg tidoxycodo ne 5 mg q 6 prnmonitor for effect Chronic constipation 236 848064 K59.09 bowel protocol Chronic ob structive pulmonary disease 89173642 J41.1 carrying dxadded to PMHmonitor respirator y status Diabetic p eripheral neuropathy 402080078 E11.42 gabapentin 400 mg tidmonitor for effect Diabetes mellitus 600565 09 E11.21 lantus 50 units bidSS insulinmon itor blood glucose and need to titrate Mixed hyperlipidemia 267 563898 E78.2 simvastati n 20 mg qdcontinue d Essential hypertension 58694314 I10 appears to have difficult to control htn current onbumex 2 mg qam 1 mg qpmspirono lactone 25 mg bidmetopro lol 50 mg qdnorvasc 5 mg qdimdur 30 mg qdhydralaz ine 25 mg bidmonitor bp and need to titrate Obstructiv e sleep apnea syndrome 22595124 G47.33 carrying dx added to PMH Panic disorder 982872184 F41.0 see aboveon risperdalp sych to eval Coronary arteriosclerosis 54946882 I25.10 metoprolol 50 mg qdASA 81 mg qdsimvasta tin 20 mg qdcontinue d [id number] AHSAN MCCONNELL NP [facility] on [address] [place] [address] 10/14/2022 11:46:11 10/16/2022 16:00:13 Acute kidney injury 63228482 N17.8 ARF on CRF stage 3 at baseline however appear to be stage 4improved with IVFmonitor renal function - check CMP in am x 1avoid nephrotoxi c meds as able; is on diureticsn ephro consult prn Chronic ki dney disease stage 3A 639612118 N18.31 carrying dx of crf stage 3 however appear stage 4 Asthenia 32777141 R53.1 severe deconditio ningPT OT eval and treatmonit or need for increased services in community vs need to transition to LTC Acute hyponatremia 74620 02 E87.1 Hy=970 in hospitalCM P x 1 in am Morbid obesity 083923884 E66.01 dietary to evalChange diet from regular to carb control Chronic co mbined systolic and diastolic heart failure 3764042220 92004 I50.42 bumex 2 mg qam 1 mg qpmspirono lactone 25 mg bidmonitor respirator y and fluid statusmoni tor renal function with recent arf on crf - CMP in am Nonischemi c congestive cardiomyopathy 5042469274 04 I42.0 added to PMHcontinu e current meds Anxiety 37466525 F41.1 fluoxetine 40 mg qdrisperda l 1 mg bid question dx of bipolarto contact PCP for full dx list - re-request edpsych to cassie mccain for behaviors Asthma 353233077 J45.99 8 at baselineal buterol MDI prn Depressive disorder 3548 9007 F33.8 see above Chronic pain 42524975 G8 9.29 gabapentin 400 mg tidoxycodo ne 5 mg q 6 prnmonitor for effect Chronic constipation 236 037863 K59.09 Add senna-s 2 tabs dailybowel protocolMo nitor and adjust as needed Chronic ob structive pulmonary disease 80771012 J41.1 carrying dxadded to PMHmonitor respirator y status Diabetic p eripheral neuropathy 892896907 E11.42 gabapentin 400 mg tidmonitor for effect Diabetes mellitus 415676 09 E11.21 lantus 50 units bidSS insulinmon itor blood glucose and need to [id number] x 1 in am Mixed hyperlipidemia 267 733203 E78.2 simvastati n 20 mg qdCMP, lipids x 1 in amcontinue d Essential hypertension 17687767 I10 appears to have difficult to control htn current onbumex 2 mg qam 1 mg qpmspirono lactone 25 mg bidmetopro lol 50 mg qdnorvasc 5 mg qdimdur 30 mg qdhydralaz ine 25 mg bidmonitor bp and need to titrate Obstructiv e sleep apnea syndrome 72074875 G47.33 carrying dx added to H Panic disorder 993372094 F41.0 see aboveon risperdalp sych to eval Coronary arteriosclerosis 92704121 I25.10 metoprolol 50 mg qdASA 81 mg qdsimvasta tin 20 mg qdcontinue d [id number] Andi Mejia MD [facility] on [address] [place] [address] 10/22/2022 15:37:47 10/24/2022 12:17:55 Chronic kidney disease stage 3A 479725262 N18.31 carrying dx of crf stage 3 however appear stage 4monitor renal functionla bs ordered for tomorrow then q tuesdaysav oid nephrotoxi c meds as ablerefer to nephrowill attempt voiding trial in am with bladder scan q shift and straight cath if > 300cc Asthenia 95163964 R53.1 improving with therapynow able to ambulate up to 100 feet with walker with contact guardmonit or need for increased services in community vs need to transition to LTC Acute hyponatremia 30071 02 E87.1 Uv=319 in [facility] bmp and monitor lytesorder ed for tomorrow Chronic co mbined systolic and diastolic heart failure 0785631070 59404 I50.42 bumex 2 mg qam 1 mg qpmspirono lactone 25 mg bidmonitor respirator y and fluid statusmoni tor renal function with recent arf on crf Essential hypertension 60196077 I10 bumex 2 mg qam 1 mg qpmspirono lactone 25 mg bidmetopro lol 50 mg qdnorvasc 5 mg qdimdur 30 mg qdhydralaz ine 25 mg bidmonitor bp and need to titrate [id number] CHAKA Hawkins [facility] on [address] [place] [address] 10/27/2022 11:28:29 10/29/2022 10:44:01 Acute constipation 823988636 K59.09 xray of abdomen for unknown amount [...] d Chronic ki dney disease stage 3A 612004627 N18.31 bun/creat remains elevated, though lab results as above slightly better on 10/23/22avoi d nephrotoxi c meds as ablerefer to nephro - will notify space scheduler Acute hyponatremia 95873 02 E87.1 Na 139 on 10/23/22labs weekly on Tuesdays Chronic co mbined systolic and diastolic heart failure 5621346299 77309 I50.42 compensate dbumex 2 mg q am, 1 mg q pmspironol actone 25 mg bidmonitor fluid statusmoni tor renal function as above Essential hypertension 94171866 I10 ortho BPs bid x 3 dayswill dc hydralazin e 25 mg bid nowbumex 2 mg q am, 1 mg q pmspironol actone 25 mg bidmetopro lol 50 mg qdnorvasc 5 mg qdimdur 30 mg qdmonitor bp and need to titrate [id number] Andi Mejia MD [facility] on [address] [place] [address] 10/28/2022 12:36:51 10/30/2022 15:40:26 Panic disorder 396849337 F41.0 appears to be experienci ng panic attackvita l stablestar t ativan 0.5 mg q 4 may repeat in 30 min for effectscri pt and e kit script writtento ED for acute decompensa tionof note labs were ordered for today however not drawn [id number] Andi Mejia MD [facility] on [address] [place] [address] 10/31/2022 11:44:27 11/03/2022 16:09:35 Orthostatic hypotension 30691457 I95.1 with therapy stating bp dropped to 80's/40's when standing Essential hypertension 50679945 I10 see abovebumex 2 mg qam 1 mg qpmspirono lactone 25 mg bidmetopro lol 50 mg qd(norvasc 5 mg qd now discontinu ed)imdur 30 mg qdhydralaz ine 25 mg bidmonitor bp and need to titrate Pain of le ft shoulder joint 6719449831 8609275 M25.512 probable underlying OAx ray orderedawa it results Panic disorder 926144524 F41.0 patient now much improved and back to baselinemo nitor need to titrate ativan [id number] EPIFANIO CHEN [facility] on [address] [place] [address] 11/13/2022 13:45:01 11/18/2022 16:00:29 Essential hypertension 38525696 I10 continue bumex 2 mg qam 1 mg qpmspirono lactone 25 mg bidmetopro lol 50 mg qdimdur 30 mg qdhydralaz ine 25 mg bidmonitor bp and need to titrate Chest pain 23853893 R07. 9 see HPIno changes to plan of care despite elevated D dimer and tropnot felt to be pleuriticO rdered prn nitro for chest pain Chronic ki dney disease stage 3A 978471531 N18.31 likely moving to end stage with creat of 103 and bun 3.30encour age PO fluidsavoi d nephrotoxi c meds Anxiety 87798791 F41.1 ativan 0.5 mg q 4 hours PRNcontinu e [id number] CHAKA Hawkins [facility] on [address] [place] [address] 11/17/2022 07:53:39 11/19/2022 11:29:11 Chest pain 92102532 R07.9 no chest pain while in ED last night and EKG reassuring no changes to plan of care despite elevated D dimer and tropnot felt to be pleuriticp rn nitro available for chest pain Essential hypertension 22294754 I10 bp normalbume x 2 mg q am, 1 mg q pmspironol actone 25 mg bidmetopro lol 50 mg qdimdur 30 mg qdmonitor bp and adjust meds prn Chronic ki dney disease stage 3A 478358452 N18.31 likely moving to end stage with creat of 103 and bun 3.30encour age PO fluidsavoi d nephrotoxi c medsmonito r renal functionre jerry to nephro if pt and family agree Pain of le ft shoulder joint 6770727071 2512462 M25.512 is chronicno fracture on xray in ED though does have osteophyte s and joint space narrowingc ontinue tizanidine 4 mg qhs 20790220 PEDRO [facility]AE [facility] on [address] [place] [address] 11/18/2022 14:37:50 11/20/2022 14:56:24 Chronic combined systolic and diastolic heart failure 3334311259 47139 I50.42 compensate d bumex 2 mg q am, 1 mg q pm spironolac tone 25 mg bid monitor fluid status monitor renal function Anxiety 87970761 F41.1 ativan 0.5 mg q 4 hours PRNpsych prn [id number] Carolina Dennis MD [facility] on [address] [place] [address] 11/24/2022 17:49:54 11/28/2022 12:00:50 Chronic combined systolic and diastolic heart failure 4130511201 78649 I50.42 Appears euvolemic. Continue metoprolol 50 mg qd, bumex 2 mg q am and 1 mg q pm and spironolac tone 25 mg BIDMay need to decrease diuretics depending on renal functionMo nitor resp. status, fluid status, wts and labs. Anxiety 96776342 F41.1 Continue fluoxetine 30 mg qd and lorazepam 0.5 mg q 4 hrs prn.Monito r mood.Psych following. Essential hypertension 54620682 I10 Last check borderline , but otherwise good.Katherin nue bumex 2 mg q am and 1 mg q pm, spironolac tone 25 mg BID, metoprolol 50 mg qd, and imdur 30 mg qd.BP not being checked regularly, will order for M&F.Monito r BP and labs. Pain of le ft shoulder joint 1454190547 4928693 M25.512 Chronic pain with evidence of moderately severe OA per xray.With allergies to APAP, ibuprofen and morphine.W ill continue oxycodone 5 mg q 6 hrs prn.Will use ice, heat and PT and consider referral for steroid injection. Orthostati c hypotension 68581630 I95.1 Happened one time with rehab.No further episodes.M onitor. Acute constipation 9006 K59.09 Improved on increased bowel regimen.Co ntinue bowel meds as ordered.Mo nitor bowel function. Acute hyponatremia 09691 02 E87.1 No labs since 11/13, will reorder weekly labs. Asthenia 68229311 R53.1 Remains deconditio sissy.Contin ues to need PT/OT for strengthen ing, balance, gait training, safety and function.C ontinue fall precaution s.Monitor for safety.Mon itor for needs in terms of outpt services versus LTC. Morbid obesity 318525417 E66.01 Continue to encourage healthy eating.Mon itor. Asthma 828613417 J45.99 8 As above. Depressive disorder 3548 9007 F33.8 see above Chronic pain 42467643 G8 9.29 With renal failure rec for gabapentin is qd.Will change to gabapentin 600 mg qd and continue tizanidine 4 mg qhs, and oxycodone 5 mg q 6 prnMonitor sxs Chronic ob structive pulmonary disease 58206956 J41.1 Combined obstructiv e and restrictiv e disease per PFTS in past.Katherin nue Flovent 110 mcg 2 puffs BID, and albuterol HFA 2 puffs q 4 hrs prn.Monito r resp status. Diabetic p eripheral neuropathy 841788262 E11.42 As above Diabetes mellitus 611530 09 E11.21 Sugars in good control since here. HgA1C was 8.5 in 3Cont inue lantus 50U BID and SSI.Monito r fingerstic ks TID and HgA1C q 3 months. Mixed hyperlipidemia 267 056667 E78.2 Continue simvastati n 20 mg qdMonitor labs yearly Obstructiv e sleep apnea syndrome 40486971 G47.33 Not on CPAP.Consi jo-ann sleep study. Coronary arteriosclerosis 96217497 I25.10 No recent sxs (recent chest pain not thought to be cardiac.)C ontinue meds as above.F/U with cardio prn. Chronic ki dney disease stage 4 495286847 N18.4 No labs since 11/13.With severely elevated BUN.Will order labs for tomorrow.N eeds renal consult.Wi ll be real balancing act with management of CHF and CKD. [id number] Andi Mejia MD [facility] on [address] [place] [address] 11/26/2022 14:50:28 11/28/2022 12:50:15 Acute kidney injury 32747048 N17.8 ARF on CRF stage 3 at baseline however appear to be stage 4improved with IVFmonitor renal functionav oid nephrotoxi c meds as ablenephro consult Chronic ki dney disease stage 3A 671057349 N18.4 see HPImonitor renal function on bumex and spironolac tone for CHFrepeat bmp at f/u with pcp Asthenia 84554162 R53.1 will need 24 hour supervisio n now in place in community Chronic co mbined systolic and diastolic heart failure 8737976009 45072 I50.42 bumex 2 mg qam 1 mg qpmspirono lactone 25 mg bidmonitor respirator y and fluid statusmoni tor renal function with recent arf on crf Coronary arteriosclerosis 84513430 I25.10 metoprolol 50 mg qdASA 81 mg qdsimvasta tin 20 mg qdcontinue d Health Concerns Section Related Observation LastModified by Organization Detai ls LastModified Time None Recorded Concern Status LastModified by Organization Details LastModified Time None Recorded Advance Directives Directive Y: Payers Insurance Date Sequence Insurance Name Policy Number Policy Drake Covered Member ID Drake Member ID Guarantor Name 12/25/2023 1 [place] [facility] Lupisderrick Ana [id number] Lupis Mueller Notes Date Note Type Note [...] yesterday. She appears very anxious. EPIFANIO [address] [facility], [address], [place], [address], [facility] 11/13/2022 14:07:45 3 text/html pt seen today for acute telemedicine visit. last night pt called 911 and sent herself out to [facility] ED stating per nurse that [...] to SNF for rehab. CHAKA Hawkins [address] [facility], [address], [place], [address], [facility] 11/17/2022 13:34:21 3 text/html ROS as noted in the HPI seen today for acute rounding visit, CAOx3 in the day room in her wheelchair, she is weepy saying my legs don't work anymore , chatted withher for a few minutes and she calmed, lungs clear, ate well at lunch PEDRO MONAE NP [address] [facility], [address], [place], [address], [facility] - [email or web address] 11/19/2022 10:31:14 3 text/html This is a 62 yo woman who I am seeing today for a routine MD 60 day reeval rounding visit. She was admitted here on 10/03 after spending several days at the [facility] awaiting placement. She had been seen at the [facility] several times in the month prior. [...] since she was admitted to this facility. BICYCLE COURIER concurs and [facility] records show this also. pt is eating 75-100% of all her meals. currently on senna 2 qhs and colace daily. pt is making progress with rehab, walking up to 165 feet. ghotra cath recently removed and pt is voiding normally. Carolina Dennis MD [address] [facility], [address], [place], [address], [facility] [email or web address] 11/24/2022 20:21:29 3 text/html Patient is a [...] home. Will require 24/7 supervision with VNA, [employer] and meals on wheels in place, will be living with daughter. Discussed with SW. Of note labs were ordered yesterday, called labs for result with significant improvement in bun/cre Andi Mejia MD [address] [place] [address], [address], [place], [place], [address], [employer] 11/26/2022 14:57:47 OBGyn Episode No OBEpisode recorded.
== END 2025-05-09 13:16 | disposition home or self-care (01) ==
LOC: HO.LAB 13:15
PROVIDERS: PCP Physician Assistant; Visit Provider Physician Assistant
DX: I11.0 Hypertensive heart disease with heart failure (principal); I50.32 Chronic diastolic (congestive) heart failure; E11.65 Type 2 diabetes mellitus with hyperglycemia; I95.1 Orthostatic hypotension; J44.1 Chronic obstructive pulmonary disease with (acute) exacerbation; F39 Unspecified mood [affective] disorder; F41.0 Panic disorder [episodic paroxysmal anxiety]; R06.02 Shortness of breath; R05.8 Other specified cough; R42 Dizziness and giddiness; R06.09 Other forms of dyspnea; Z79.4 Long term (current) use of insulin; Z79.82 Long term (current) use of aspirin; Z79.52 Long term (current) use of systemic steroids; Z79.899 Other long term (current) drug therapy
CPT/HCPCS: 36415; 71046; 80048; 80061; 80076; 83036; 83880; 84443; 99212

== ENCOUNTER 2025-05-09 13:15 | Outpatient (AMB) | payer OTHER, SELFPAY ==
--- NOTE | 2025-05-09 13:22 | MHC.PC.OV ---
Vital Signs 05/09/25 13:25 Height 5 ft 1.42 in Weight 122.924 kg BMI 50.5 BP 132/80 Blood Pressure Location Lt brachial Position Sitting Respiration 22 H Pulse 87 Pulse Source Pulse Oximeter Temp 97.6 F Temp Source Temporal Artery Scan Pulse Oximetry (%) 95 Oxygen Delivery Method Room Air Intake Visit Reasons: ROUTINE - see comments Rn Referral Required: No Accompanied by: niece Allergies ibuprofen Allergy (Intermediate, Verified 05/09/25 13:23) vomiting, itching acetaminophen (Tylenol) Allergy (Unknown, Verified 05/09/25 13:23) Unknown codeine Adverse Reaction (Severe, Verified 05/09/25 13:23) Anaphylaxis morphine Adverse Reaction (Intermediate, Verified 05/09/25 13:23) vomiting vancomycin Adverse Reaction (Intermediate, Verified 05/09/25 13:23) Itching Medication List - Last Reconciled 05/09/25 by GUADALUPE Blackman [ADULT PULL UP XL 4 per day NS] allopurinol 100 mg PO DAILY azithromycin (Zithromax Z-Davian) For 250 mg dose pack: take 500 mg today (day 1), then 250 mg for 4 days (days 2-5) PO BD Insulin Syringe (half unit) (insulin syr/ndl U100 half dionna) As directed NS blood-glucose meter (FreeStyle Lite Meter kit) As directed checks POC 4 X/day bumetanide 2 mg PO DAILY 90 days buspirone 30 mg PO BID [Chux 3x/day] clonidine HCl 0.1 mg PO TID Comfort EZ Pen [place] (pen needle, diabetic) 4 times daily NS [Commode bags 4x/day NS] diclofenac sodium 1% 4 grams topical QID PRN duloxetine 60 mg PO DAILY FreeStyle Lancets (lancets) four times daily NS FreeStyle Lucy 3 [place] (blood-glucose,paintless dent repair technician,cont) As directed NS FreeStyle Lucy 3 Sensor (blood-glucose sensor) every 14 days NS FreeStyle Lite Strips (blood sugar diagnostic) four times daily NS gabapentin 400 mg PO BID@0900,1500 insulin glargine (Lantus Solostar U-100 Insulin) 60 units subcut BEDTIME insulin lispro (Humalog U-100 Insulin) 4 units See Protocol subcut TID insulin syringe-needle U-100 (BD Insulin Syringe Ultra-Fine) insulin syringe-needle U-100 (BD Insulin Syringe Ultra-Fine) Four times daily isosorbide mononitrate ER 60 mg (2 x 30 mg) PO DAILY ketorolac 0.5% 1 drp ophthalmic (eye) TID linaclotide (Linzess) 290 mcg PO DAILY lorazepam 0.5 mg PO TID PRN metoprolol succinate ER 50 mg PO DAILY [nitrile gloves 4x/day] pantoprazole 20 mg PO BEDTIME@1800 pen needle, diabetic (Comfort EZ Pen [place]) four times daily pen needle, diabetic four times daily prazosin 1 mg PO BEDTIME prednisone 40 mg (2 x 20 mg) PO DAILY [pressure relief cushion daily] risperidone 0.5 mg PO BID simvastatin 20 mg PO BEDTIME tirzepatide (weight loss) (Zepbound) 5 mg subcut WE trazodone 100 mg (2 x 50 mg) PO BEDTIME Tobacco use date assessed: 03/21/25 Dental Screening Dental Screen Date: 03/21/25 HPI HPI Comments History of Present Illness Details 64-year-old female with history of hypertension, diabetes, anxiety, heart failure reduced ejection fraction, asthma/COPD, DANIEL, history decubitus ulcer presents to the office today for management of chronic conditions. Type 2 diabetes-due for repeat hemoglobin A1c. Previously controlled with A1c 6.4%. Following with endocrinology. On 5 mg tirzepatide, Lantus and Humalog. Continue monitoring glucose levels with CGM. Due for foot exam. Eye exam is up-to-date 02/13 Hypertension/CAD/CHF-blood pressure controlled 132/80. On metoprolol, isosorbide. Does endorse WHITE but with wheezing. No weight gain, increased edema. Not on diuretics. No recent anginal chest pain. Following with Cardiology Anxiety/depression with panic disorder-following with Dr. Rosenberg. 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 She is refusing to let them evaluate and treat the pressure ulcer. She is mostly sedentary and is not actively working on weight loss but is on tirzepatide. She is an insulin-dependent type 2 diabetic, last hemoglobin A1c 6.4%. She is compliant with her medications. She is wearing a CGM and denies any hypoglycemic episodes. ROS: Negative for all except those mentioned in HPI EXAM: Constitutional - Awake and Alert, No apparent distress Eyes - PERRL Cardiovascular - S1S2, RRR, No edema, weak radial pulses Respiratory - Normal lung expansion, Normal respiratory effort, No respiratory distress, CTA bilaterally Extremities - calf tenderness bilaterally without any palpable cords or erythema or warmth. MSK - tenderness in the medial and lateral joint spaces as well as patellar tendon in the knees bilaterally. Limited range of motion secondary to pain as well as habitus. Skin - Warm/Dry. Venous stasis changes in the bilateral lower legs Neurological - Alert & oriented x3 Psychological - Appropriate affect chest tightness. air hunger anxiety wakes up like this no wheezing dr rosenberg- first appt wiht them- only over the phonemy meds taking but not really helping prednisne [facility] Medical History (Updated 05/09/25 @ 16:45 by GUADALUPE Blackman) Mood disorder Panic disorder Diabetic nephropathy Cataracts, bilateral DANIEL (obstructive sleep apnea) COPD (chronic obstructive pulmonary disease) NICM (nonischemic cardiomyopathy) Hypertension Elevated d-dimer FELICIA (acute kidney injury) Abdominal pain Constipation Chronic respiratory failure with hypoxia Stercoral colitis Decubitus ulcer Hypoxia CHF exacerbation MDD (major depressive disorder), recurrent episode, moderate Adjustment disorder with mixed anxiety and depressed mood Cellulitis of right lower extremity Stasis dermatitis of both legs Asthma Hyperglycemia due to diabetes mellitus Congestive heart failure Obesity hypoventilation syndrome CKD (chronic kidney disease) stage 3, GFR 30-59 ml/min Acute on chronic combined systolic and diastolic CHF (congestive heart failure) Morbid obesity Diabetic neuropathy, painful Chronic pain High cholesterol Depression Diabetes Surgical History History of surgery Hx of cholecystectomy Family History Mother HTN (hypertension) Diabetes CAD (coronary artery disease) Father HTN (hypertension) Diabetes CAD (coronary artery disease) Maternal Grandmother CAD (coronary artery disease) Social History Household Members: None Household Members Other:: GRANDSON Housing: House 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 Do you presently have visiting nurse or other home services: Yes Alcohol intake: current Alcohol intake frequency: holidays/special occasions only Alcohol type: wine Comment: 1:1 Patient Tobacco Use Status: Former Tobacco user Tobacco use type: Cigarette Years Smoked: 38 e-Cigarette/Vaping Use: Never Used Second Hand Smoke Exposure: No Substance Use Type: Former Substance User Advance Directives Date on File: 04/30/23 service: No Current occupational status: disabled Current occupation: rt handed Cognitive needs: Yes (walker, cane) Hearing needs: No Vision needs: Yes (Rx glasses) Questionnaire Thrive Questionnaire Date Thrive assessed: 03/21/25 TIMMY-7 AMB Questionnaire TIMMY-7 Date TIMMY - 7 assessed: 03/21/25 Source: Developed by Drs. Song Peters, Joelle Gray, Isael Ohara and colleagues, with an educational desean from [email or web address]. Physical exam (Primary Care) Vital Signs: Last Vital Signs Temp 97.6 F 05/09/25 13:25 Pulse 87 05/09/25 13:25 Resp 22 H 05/09/25 13:25 BP 132/80 05/09/25 13:25 Pulse Ox 95 05/09/25 13:25 Oxygen Delivery Method Room Air 05/09/25 13:25 BMI result Body Mass Index 50.5 Tobacco/Smoking Status: Tobacco use Status Tobacco use date assessed 03/21/25 05/09/25 13:32 Patient Tobacco Use Status Former Tobacco user 05/09/25 13:32 Tobacco use type Cigarette 05/09/25 13:32 e-Cigarette/Vaping Use Never Used 05/09/25 13:32 Thrive Assessment: Date of Thrive Assessment Date Thrive assessed 03/21/25 05/09/25 13:32 Coding Level of Care Code Est Pt Level 5 (72383) Complex EM visit Add On G2211 Diagnoses Type 2 diabetes mellitus with hyperglycemia, with long-term current use of insulin E11.65; Z79.4 Diabetes mellitus complication status: with hyperglycemia 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 insulin use: with skilled nursing use Diabetes mellitus type: type 2 DANIEL (obstructive sleep apnea) G47.33 Panic disorder F41.0 COPD exacerbation J44.1 Hypertension I10 Chronic heart failure with reduced ejection fraction (HFrEF, <= 40%) I50.22 CHF exacerbation I50.9 Acute kidney injury N17.9 Assessment & Plan Assessment & Plan (1) Diabetes: Code(s): E11.9 - Type 2 diabetes mellitus without complications Category: Medical Qualifiers: Diabetes mellitus complication status: with hyperglycemia Diabetes mellitus skilled nursing insulin use: with skilled nursing use Diabetes mellitus type: type 2 Qualified Code(s): E11.65 - Type 2 diabetes mellitus with hyperglycemia; Z79.4 - half-way (current) use of insulin Plan: Controlled. Update hgb a1c. Continue following with endocrinology. Continue current therapies. Referred to Podiatry for foot exam (2) DANIEL (obstructive sleep apnea): Code(s): G47.33 - Obstructive sleep apnea (adult) (pediatric) Category: Medical Plan: Continue CPAP (3) Panic disorder: Code(s): F41.0 - Panic disorder [episodic paroxysmal anxiety] Category: Medical Plan: Uncontrolled. Advised to reach out to psychiatrist for medication adjustment. For the time being, continue current therapies. Use Ativan as needed (4) COPD exacerbation: Code(s): J44.1 - Chronic obstructive pulmonary disease with (acute) exacerbation Category: Medical Plan: Suspected based on clinical exam, and was prescribed prednisone and zpak and advised albuterol use. However, wheezing more likely cardiac in nature based on clinical history as well as diagnostics. (5) Hypertension: Code(s): I10 - Essential (primary) hypertension Category: Medical Plan: Controlled. Continue current therapy (6) Chronic heart failure with reduced ejection fraction (HFrEF, <= 40%): Code(s): I50.22 - Chronic systolic (congestive) heart failure Category: Medical Plan: Volume overload. CXR with moderate effusion on the right and small effusion on the left. BNP pending. Also noted to have FELICIA, likely cardiorenal. Advised to present to the ED, expert call placed (7) CHF exacerbation: Code(s): I50.9 - Heart failure, unspecified Category: Medical Plan: Volume overload. CXR with moderate effusion on the right and small effusion on the left. BNP pending. Also noted to have FELICIA, likely cardiorenal. Advised to present to the ED, expert call placed (8) Acute kidney injury: Code(s): N17.9 - Acute kidney failure, unspecified Category: Medical Plan: Volume overload. CXR with moderate effusion on the right and small effusion on the left. BNP pending. Also noted to have FELICIA, likely cardiorenal. Advised to present to the ED, expert call placed Plan Follow-up in following ER visit Orders: Orders Basic Metabolic Panel Today E11.65 - Type 2 diabetes mellitus with hyperglycemia, F39 - Unspecified mood [affective] disorder, F41.0 - Panic disorder [episodic paroxysmal anxiety], I10 - Essential (primary) hypertension, I50.32 - Chronic diastolic (congestive) heart failure, I95.1 - Orthostatic hypotension, J44.1 - Chronic obstructive pulmonary disease with (acute) exacerbation, Z79.4 - terminal operations manager (current) use of insulin Liver Panel Today E11.65 - Type 2 diabetes mellitus with hyperglycemia, F39 - Unspecified mood [affective] disorder, F41.0 - Panic disorder [episodic paroxysmal anxiety], I10 - Essential (primary) hypertension, I50.32 - Chronic diastolic (congestive) heart failure, I95.1 - Orthostatic hypotension, J44.1 - Chronic obstructive pulmonary disease with (acute) exacerbation, Z79.4 - terminal operations manager (current) use of insulin TSH reflex Free T4 Today E11.65 - Type 2 diabetes mellitus with hyperglycemia, F39 - Unspecified mood [affective] disorder, F41.0 - Panic disorder [episodic paroxysmal anxiety], I10 - Essential (primary) hypertension, I50.32 - Chronic diastolic (congestive) heart failure, I95.1 - Orthostatic hypotension, J44.1 - Chronic obstructive pulmonary disease with (acute) exacerbation, Z79.4 - half-way (current) use of insulin XR chest 2V Today J44.1 - Chronic obstructive pulmonary disease with (acute) exacerbation, R05.8 - Other specified cough, R06.02 - Shortness of breath Hemoglobin A1c Today E11.65 - Type 2 diabetes mellitus with hyperglycemia, F39 - Unspecified mood [affective] disorder, F41.0 - Panic disorder [episodic paroxysmal anxiety], I10 - Essential (primary) hypertension, I50.32 - Chronic diastolic (congestive) heart failure, I95.1 - Orthostatic hypotension, J44.1 - Chronic obstructive pulmonary disease with (acute) exacerbation, Z79.4 - terminal operations manager (current) use of insulin Lipid Panel Today E11.65 - Type 2 diabetes mellitus with hyperglycemia, F39 - Unspecified mood [affective] disorder, F41.0 - Panic disorder [episodic paroxysmal anxiety], I10 - Essential (primary) hypertension, I50.32 - Chronic diastolic (congestive) heart failure, I95.1 - Orthostatic hypotension, J44.1 - Chronic obstructive pulmonary disease with (acute) exacerbation, Z79.4 - half-way (current) use of insulin Medications: New prednisone 40 mg (2 x 20 mg) PO DAILY 10 tabs 0RF azithromycin (Zithromax Z-Davian) For 250 mg dose pack: take 500 mg today (day 1), then 250 mg for 4 days (days 2-5) PO 6 tabs 0RF Discontinued prednisone Discontinued Reason: Doctor's Order 20 mg PO BID 14 tabs 0RF for asthma exacerbation Patient Instructions: Call Dr. Rosenberg about ongoing anxiety despite medication adjustments Prescriptions will be sent to [facility] for bubble pack to help you manage your medications more easily
[2025-05-09 13:25] VITALS: BP 132/80; PULSE 87; RESP 22; TEMP 36.4; O2SAT 95; BMI 50.5
--- OUTSIDE RECORDS SUMMARY | 2025-05-09 17:14 | XMS_ITS | Clinical Summary ---
Author Organization [address] [facility] Address [address] [place] [address] Phone Care Team Providers Care Tire Care Manager Name Role Phone Tavo Huber MD Primary Care Provider [phone] Allergies No known active allergies Social History [...] 1980 Cervical Cancer Screening: Pap Smear 1982 RSV Immunization Adult Patients (1 - Risk 50-74 years 1-dose series) 2011 Zoster Vaccines (1 of 2) 2011 Cholesterol Screening (Lipid Panel) 07/02/2022 HIV Screening 07/02/2022 Hepatitis C Screening 07/02/2022 Social Influencers of Health Screening 07/02/2022 Depression Screening 07/20/2024 Diabetes: Annual Urine Albumin-Creatinine Ratio (uACR) 09/27/2024 Diabetes: Blood Sugar Control Test (HGBA1C) 09/27/2024 Hypertension/CHF/CAD Annual BMP Blood Test 09/27/2024 COVID-19 Vaccine ( season) 2025 Influenza Vaccine (#1) 2025 2, 12/15/2021, 06/03/2018, Additional history exists Pneumococcal Vaccine: [...] patient's age to complete this topic Insurance [facility] [place] [address] Advance Directives Documents on File Type Date Recorded Patient Director Pharmacology Expl anation Health Care Decision (hx) 02/25/2022 [...] (hx) 10/14/2020 AD GARCIA DIRECTIVE Care Teams Tire Care Manager Relationship Specialty Start Date End Date Tavo Huber MD [address] [place] [address] Dr Anjelica [place] PCP - General Internal Medicine 10/09/21
--- OUTSIDE RECORDS SUMMARY | 2025-05-09 17:14 | XMS_ITS | Clinical Summary ---
Author Organization [facility] Address [address] [place] [address] Phone Care Team Providers Care Grass Cutter Name Role Phone Tavo Huber MD Primary Care Provider [phone] Allergies Active Allergy Reactions Criticality Noted Date [...] Mass Index - - Plan of Treatment Upcoming Encounters Date Type Department Care Team (Late st Contact Info) Description 05/15/2025 11:30 AM EDT Office Visit [facility] [address] [phone] Yaquelin Bustos ARNP [address] [phone] Health Maintenance Due Date Last Done Comments Breast Cancer Screening 1961 Colorectal Cancer Screening: Annual FOBT 2010 Colorectal Cancer Screening: Colonoscopy 2010 Colorectal Cancer Screening: Sigmoidoscopy 2010 Diabetes: Ophthalmology Exam 09/21/2020 Diabetes: Pedal Pulse Checked 09/21/2020 Diabetes: Sensory Foot Exam 09/21/2020 Diabetes: Visual Foot Exam 09/21/2020 Diabetes: Hemoglobin A1C 03/27/2022 12/25/2021 Influenza Vaccine (#1) 2025 12/15/2021, 2016 Pneumococcal Vaccine: 50+ Years (4 of 4 - PCV20 or PCV21) 12/16/2026 12/16/2021, 01/21/2021, 09/09/2018, Additional history exists Pneumococcal Vaccine: Peds (0 to 5 Years) and At-Risk Patients (6 to 49 Years) Discontinued 12/16/2021, 01/21/2021, 09/09/2018, Additional history exists Hepatitis B Vaccine Aged Out No longe r eligible based on patient's age to complete this topic Insurance [place] [facility] Medicaid Care Teams Grass Cutter Relationship Specialty Start Date End Date Tavo Huber MD [address] [place] PCP - General 07/30/20
--- OUTSIDE RECORDS SUMMARY | 2025-05-09 17:14 | XMS_ITS | Encounter Summary ---
Author Organization [facility] Address [address] [place] [phone] Phone Care Team Providers Care Assembler Mechanical Ordnance Name Role Phone Andi Mejia MD Primary Care Provider [phone] Encounter Details Date Type Department Care Team (Late st Contact Info) Description 11/23/2022 Procedure Pass [facility], Ct Scan - [facility] [address] [place] [address] Social History Tobacco Use Types Packs/Day Years [...] 9:30 PM EDT Corrie Gilmore RN * [place] Suicide Severity Rating Scale (Screener/Recent Self-Report) Question [...] documented as of this encounter Care Teams Assembler Mechanical Ordnance Relationship Specialty Start Date End Date Andi Mejia MD [email or web address] PCP - General Family Medicine 11/17/22 documented as of this encounter Additional Source Comments The information contained in this document represents components of the legal health record. It is not the complete legal health record.[facility]
--- OUTSIDE RECORDS SUMMARY | 2025-05-09 17:14 | XMS_ITS | Encounter Summary ---
Author Organization [facility] Address [address] [place] [address] Phone Care Team Providers Care Production Line Technician Name Role Phone Andi Mejia MD Primary Care Provider [phone] Encounter Details Date Type Department Care Team (Late st Contact Info) Description 11/23/2022 Procedure Pass [facility], Ct Scan - [facility] [address] [place] [address] Social History Tobacco Use Types Packs/Day Years [...] 9:30 PM EDT Corrie Gilmore RN * [place] Suicide Severity Rating Scale (Screener/Recent Self-Report) Question [...] as of this encounter Care Teams Production Line Technician Relationship Specialty Start Date End Date Andi Mejia MD [email or web address] PCP - General Family Medicine 11/17/22 documented as of this encounter Additional Source Comments The information contained in this document represents components of the legal health record. It is not the complete legal health record.[facility]
--- OUTSIDE RECORDS SUMMARY | 2025-05-09 17:15 | XMS_ITS | Clinical Summary ---
Author Organization [facility] Address [address] [place] [address] Phone Care Team Providers Care Laborer Adjustable Steel Joist Name Role Phone Andi Mejia MD Primary Care Provider [phone] Allergies Active Allergy Reactions Criticality Noted Date [...] file Medical Devices Not on file [place] [address] [place] [address] [facility] [place] [address] [address] [facility] Advance Directives For more information, please contact: [phone] (9AM - 5PM [facility], Thursday-Thursday) Documents on File Type Date Recorded Patient Photo Technologist Expl anation MOLST 11/24/2022 12:57 PM Healthcare Proxy 12/21/20202020 Health care Proxy Care Teams Laborer Adjustable Steel Joist Relationship Specialty Start Date End Date Andi Mejia MD [email or web address] PCP - General Family Medicine 11/17/22 Additional Source Comments The information contained in this document represents components of the legal health record. It is not the complete legal health record.[facility]
--- OUTSIDE RECORDS SUMMARY | 2025-05-09 17:15 | XMS_ITS | Encounter Summary ---
Author Organization [facility] Address [address] [place] [address] Phone Care Team Providers Care Ramp And Cargo Supervisor Name Role Phone Tavo Huber MD Primary Care Provider Andi Mejia MD Primary Care Provider [phone] Encounter Details Date Type Department Care Team (Late st Contact Info) Description 10/23/2022 Transcribe Orders [facility] Specimen Processing [address] [place] [address] Andi Mejia MD [address] [facility] [address], [address] [place] [address] [email or web address] Bipolar 1 disorder (Primary Dx) Social History [...] EDT) WBC 8.33 4.00 - 11.00 K/uL [facility] RBC 3.40(L) 3.72 - 5.30 M/uL [facility] HGB 9.3(L) 11.4 - 15.9 g/dL [facility] HCT 29.5(L) 34.2 - 46.8 % [facility] PLT 178 140 - 430 K/uL [facility] MCV 86.8 78.0 - 97.0 fL [facility] MCH 27.4 25.0 - 33.0 pg [facility] MCHC 31.5(L) 32.0 - 36.0 g/dL [facility] RDW 14.3 11.0 - 16.0 % [facility] MPV 9.2 8.4 - 12.8 fl [facility] DIFF METHOD Auto [facility] NEUTS 71.2 43.0 - 75.0 % [facility] LYMPHS 13.7(L) 18.2 - 47.4 % [facility] MONOS 11.5(H) 4.00 - 11.00 % [facility] EOS 2.6 0.0 - 8.0 % [facility] BASOS 0.4 0.0 - 2.0 % [facility] Granulocytes, immature (%) 0.6 0.0 - 0.9 % [facility] ABSOLUTE NEUTS 5.93 1.80 - 7.70 K/uL [facility] ABSOLUTE LYMPHS 1.14 1.00 - 3.10 K/uL [facility] ABSOLUTE MONOS 0.96(H) 0.20 - 0.80 K/uL [facility] ABSOLUTE EOS 0.22 0.00 - 0.80 K/uL [facility] ABSOLUTE BASOS 0.03 0.00 - 0.09 K/uL [facility] Granulocytes, immature 0.05 0.00 - 0.05 K/uL [facility] Blood 10/23/2022 6:20 AM EDT 10/23/2022 8:31 AM EDT us Andi Mejia MD LAB BLOOD ORDERABLES Final Resul t [facility] [address] [place] [address] * (ABNORMAL) Basic metabolic panel (10/23/2022 6:20 AM EDT) SODIUM 139 133 - 146 mmol/L [facility] CHLORIDE 95(L) 96 - 108 mmol/L [facility] POTASSIUM 4.6 3.3 - 5.1 mmol/L [facility] CO2 30 21 - 35 mmol/L [facility] BUN 102(H) 6 - 19 mg/dL [facility] CREATININE 2.50(H) 0.5 - 1.5 mg/dL [facility] GLUCOSE 137(H) 70 - 99 mg/dL [facility] CALCIUM 8.7 8.4 - 10.3 mg/dL [facility] EGFR 21(L) >59 mL/min/1.7 3m2 [facility] Comment:Estimated glomerular filtration rate calculated using the CKD-EPI refit equation. ANION GAP 19 10 - 20 mmol/L [facility] 10/23/2022 6:20 AM EDT 10/23/2022 8:31 AM EDT us Andi Mejia MD LAB BLOOD ORDERABLES Final Resul t Performing Organization Address City/State/[facility] Co de Phone Number [address] [address] documented in this encounter Visit Diagnoses Diagnosis Bipolar 1 disorder- Primary documented in this encounter Additional Health Concerns Infection Onset Date Last Indicated Resolved Time CoV-Risk 11/13/2022 11/13/2022 11/24/2022 1:23 AM EDT documented as of this encounter Care Teams R[employer] And Cargo Supervisor Relationship Specialty Start Date End Date Tavo Huber MD [address] [place] [address] [place] [address] PCP - General Internal Medicine 12/21/20 11/16/22 Andi Mejia MD [address] [place] [address] [place] [address] [email or web address] PCP - General Family Medicine 11/17/22 documented as of this encounter Additional Source Comments The information contained in this document represents components of the legal health record. It is not the complete legal health record.[facility]
== END 2025-05-09 13:55 | disposition home or self-care (01) ==
LOC: HO.HMCHD 13:15
PROVIDERS: PCP Physician Assistant; Visit Provider Physician Assistant
DX: E11.65 Type 2 diabetes mellitus with hyperglycemia (principal); Z79.4 Long term (current) use of insulin; J44.1 Chronic obstructive pulmonary disease with (acute) exacerbation; I50.22 Chronic systolic (congestive) heart failure; I50.9 Heart failure, unspecified; I11.0 Hypertensive heart disease with heart failure; G47.33 Obstructive sleep apnea (adult) (pediatric); F41.0 Panic disorder [episodic paroxysmal anxiety]; N17.9 Acute kidney failure, unspecified

== ENCOUNTER → 2025-05-09 14:48 | Outpatient (BNV) | payer OTHER, SELFPAY | PROVIDERS: PCP Physician Assistant; Visit Provider Radiology Diagnostic Radiology | DX: I51.7 Cardiomegaly (principal); J90 Pleural effusion, not elsewhere classified; J81.1 Chronic pulmonary edema; I73.9 Peripheral vascular disease, unspecified; J84.9 Interstitial pulmonary disease, unspecified | CPT/HCPCS: 71046 ==

== ENCOUNTER 2025-05-09 18:14 | Inpatient (IN) | payer OTHER, SELFPAY ==
--- NOTE | ~2025-05-09 | XR_ITS ---
CLINICAL HISTORY: shortness of breath 2 view chest x-ray Comparison: CR/SR - XR CHEST 2 VIEWS - 05/09/25 15:01 EDT Findings: Mild cardiomegaly and diffuse interstitial prominence in both lungs. Tiny bilateral pleural effusions. Heart size is normal. No acute fracture. IMPRESSION: Mild cardiomegaly, diffuse interstitial prominence in both lungs and tiny bilateral pleural effusions, Concerning for mild pulmonary edema/fluid overload. This document has been electronically signed by: Johny Panchal MD on 05/09/2025 19:15:11
--- NOTE | ~2025-05-09 | US_ITS ---
EXAMINATION: US KIDNEY BILATERAL HISTORY: FELICIA, cr 2.33 TECHNIQUE: Real-time grayscale ultrasound imaging of the kidneys was performed and images were reviewed. COMPARISON: Correlation is made with an abdominal ultrasound dated 12/10/2016. Correlation is also made with an unenhanced CT of the abdomen dated 08/25/2022. FINDINGS: Right kidney: The right kidney measures 11.9 x 4.6 x 4.7 cm. Renal parenchymal echotexture and thickness are normal. There are no masses. There is a 5 mm nonobstructing calculus in the interpolar region. There is no hydronephrosis. Left Kidney: The left kidney measures 11.1 x 5.5 x 4.4 cm. Renal parenchymal echotexture and thickness are normal. There are no masses. There is no hydronephrosis or renal calculi. US/US renal BI IMPRESSION: 5 mm nonobstructing right renal calculus. Otherwise unremarkable renal ultrasound. Electronically signed by: Song Erickson MD 05/10/2025 11:41 AM EDT
--- NOTE | 2025-05-09 18:20 | ED.GENADULT ---
HPI - General Adult General Chief complaint: Chest Pain Stated complaint: bad heart asked to come in by pcp Time Seen by Provider: 05/09/25 21:03 Source: patient, family, RN notes reviewed and old records reviewed Mode of arrival: ambulatory Limitations: no limitations History of Present Illness ED Provider: Dr. Trisha Knowles HPI narrative: 64-year-old female with a history of COPD, CHF, diabetes, vertigo, DANIEL, hypertension, obesity, among others presenting with generalized weakness, malaise and fatigue, shortness of breath and substernal chest pain that is been ongoing since this afternoon. She had been seen by her primary care doctor earlier today who told her to come to the emergency department for evaluation of ?fluid on her lungs and worsening kidney function?. Admits that she noticed the chest discomfort while she was sitting in her chair today. Pain is worse with deep breaths. Shortness of breath is worse with exertion. She also can not lay flat at night. Describes a poor appetite and denies increase in salt intake however she is sitting next to a bag of [employer] cheeseburger in the bed. Denies cough with sputum production, known sick contacts, changes in her chronic lower extremity edema or pain. No bowel changes or urinary complaints. Reports she has been taking all of her medications as prescribed. Related Data Home Medications ?Medication ?Instructions ?Recorded ?Confirmed insulin syringe-needle U-100 1 mL 09/27/22 05/09/25 31 gauge x 5/16 (BD Insulin Syringe Ultra-Fine) metoprolol succinate 50 mg 50 mg PO DAILY 09/21/23 05/10/25 tablet,extended release 24 hr prazosin 1 mg capsule 1 mg PO BEDTIME 09/21/23 05/10/25 buspirone 30 mg tablet 30 mg PO BID 01/31/25 05/10/25 allopurinol 100 mg tablet 100 mg PO DAILY 02/01/25 05/10/25 clonidine HCl 0.1 mg tablet 0.1 mg PO TID 02/01/25 05/10/25 duloxetine 60 mg capsule,delayed 60 mg PO DAILY 02/01/25 05/10/25 release insulin glargine 100 unit/mL (3 60 unit subcut BEDTIME 02/01/25 05/10/25 mL) subcutaneous pen (Lantus Solostar U-100 Insulin) pantoprazole 20 mg tablet,delayed 20 mg PO BEDTIME@1800 02/01/25 05/10/25 release tirzepatide (weight loss) 5 mg/0.5 5 mg subcut WE 02/01/25 05/10/25 mL subcutaneous pen injector (Zepbound) linaclotide 290 mcg capsule 290 mcg PO DAILY 05/10/25 05/10/25 (Linzess) risperidone 1 mg tablet 1 mg PO BEDTIME 05/10/25 05/10/25 sertraline 25 mg tablet 75 mg PO DAILY 05/10/25 05/10/25 trazodone 150 mg tablet 150 - 300 mg PO BEDTIME PRN 05/10/25 05/10/25 insomnia Previous Rx's ?Medication ?Instructions ?Recorded blood-glucose meter (FreeStyle #1 ea 09/02/22 Lite Meter kit) BD Insulin Syringe (half unit) 0.3 #400 ea 04/27/24 mL 31 gauge x 5/16 (insulin syr/ndl U100 half dionna) FreeStyle Lucy 3 [place] #1 ea 04/27/24 (blood-glucose,accident report clerk,cont) isosorbide mononitrate 30 mg 60 mg (2 x 30 mg) PO DAILY #180 04/27/24 tablet,extended release 24 hr tabs FreeStyle Lancets 28 gauge #200 ea 06/01/24 (lancets) FreeStyle Lite Strips (blood sugar #200 ea 06/01/24 diagnostic) pen needle, diabetic 32 gauge x #200 ea 06/01/2412/02 (Comfort EZ Pen Carbon) Comfort EZ Pen Carbon 31 gauge x #200 ea 06/02/2412/02 (pen needle, diabetic) insulin lispro 100 unit/mL 4 unit subcut TID #10 mL 08/03/24 subcutaneous solution (Humalog U-100 Insulin) lorazepam 0.5 mg tablet 0.5 mg PO TID PRN anxiety #90 tabs 08/03/24 ADULT PULL UP XL #360 ea 08/24/24 Chux #200 ea 08/24/24 Commode bags #4 ea 08/24/24 nitrile gloves #360 ea 08/24/24 pressure relief cushion #1 ea 08/24/24 insulin syringe-needle U-100 1 mL #200 ea 09/20/24 31 gauge x 5/16 (BD Insulin Syringe Ultra-Fine) pen needle, diabetic 32 gauge x #1,200 ea 09/28/24 gabapentin 400 mg capsule 400 mg PO BID@0900,1500 #180 caps 12/19/24 FreeStyle Lucy 3 Sensor #6 ea 12/28/24 (blood-glucose sensor) simvastatin 20 mg tablet 20 mg PO BEDTIME #90 tabs 03/08/25 bumetanide 2 mg tablet 2 mg PO DAILY 90 days #90 tabs 03/28/25 Allergies Allergy/AdvReac Type Severity Reaction Status Date / Time ibuprofen Allergy Intermediate vomiting, Verified 05/09/25 19:15 itching acetaminophen (Tylenol) Allergy Unknown Unknown Verified 05/09/25 19:15 codeine AdvReac Severe Anaphylaxis Verified 05/09/25 19:15 morphine AdvReac Intermediate vomiting Verified 05/09/25 19:15 vancomycin AdvReac Intermediate Itching Verified 05/09/25 19:15 Review of Systems Review of Systems: As per HPI, full review of systems performed and negative but for the above mentioned pertinent positives and negatives. [facility] Past Medical History Medical History Mood disorder Panic disorder Diabetic nephropathy Cataracts, bilateral DANIEL (obstructive sleep apnea) COPD (chronic obstructive pulmonary disease) NICM (nonischemic cardiomyopathy) Hypertension Elevated d-dimer FELICIA (acute kidney injury) Abdominal pain Constipation Chronic respiratory failure with hypoxia Stercoral colitis Decubitus ulcer Hypoxia CHF exacerbation MDD (major depressive disorder), recurrent episode, moderate Adjustment disorder with mixed anxiety and depressed mood Cellulitis of right lower extremity Stasis dermatitis of both legs Asthma Hyperglycemia due to diabetes mellitus Congestive heart failure Obesity hypoventilation syndrome CKD (chronic kidney disease) stage 3, GFR 30-59 ml/min Acute on chronic combined systolic and diastolic CHF (congestive heart failure) Morbid obesity Diabetic neuropathy, painful Chronic pain High cholesterol Depression Diabetes Surgical History History of surgery Hx of cholecystectomy Family History Family History Mother HTN (hypertension) Diabetes CAD (coronary artery disease) Father HTN (hypertension) Diabetes CAD (coronary artery disease) Maternal Grandmother CAD (coronary artery disease) Social History Social History Household Members: None Household Members Other:: GRANDSON Housing: Apartment 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 Do you presently have visiting nurse or other home services: Yes Alcohol intake: current Alcohol intake frequency: holidays/special occasions only Alcohol type: wine Comment: 1:1 Patient Tobacco Use Status: Former Tobacco user Tobacco use type: Cigarette Years Smoked: 38 e-Cigarette/Vaping Use: Never Used Second Hand Smoke Exposure: No Substance Use Type: Former Substance User Advance Directives Date on File: 04/30/23 service: No Current occupational status: disabled Current occupation: rt handed Cognitive needs: Yes (walker, cane) Hearing needs: No Vision needs: Yes (Rx glasses) Physical Exam ED Exam Exam: GENERAL: Chronically ill-appearing, mild respiratory distress. SKIN: Normal skin color for ethnicity, warm, dry, no rashes noted. HEENT: Normocephalic, atraumatic, no stridor, EOMI. NECK: Soft, supple, full ROM, midline structures nontender, no step-offs, no deformities, no lymphadenopathy. CHEST: Heart regular tachycardia, symmetric chest rise and fall. PULMONARY: Coarse lung sounds bilaterally, diminished at the bases, ,mild respiratory distress with poor air movement, no wheezes. ABDOMINAL: Soft, protuberant nontender, quiet bowel sounds in all quadrants. : Deferred. MUSCULOSKELETAL: Normal tone, full range of motion, no deformities, 2+ peripheral edema bilaterally. NEURO: Alert and oriented to person, CN II through XII intact, no focal neurologic deficits. PSYCHIATRIC: Anxious affect, appropriate demeanor. Vital Signs: Vital Signs - 24 hr 05/09/25 19:09 05/09/25 20:26 05/09/25 21:06 Temperature 98.4 F 98.7 F Pulse Rate 91 93 Respiratory Rate 20 20 Blood Pressure 105/58 L 148/44 H Pulse Oximetry 93 Oxygen Delivery Method Room Air 05/09/25 22:38 05/10/25 00:35 05/10/25 01:20 Temperature Pulse Rate 88 Respiratory Rate 20 Blood Pressure 103/30 L 92/42 L 87/37 L Pulse Oximetry 98 Oxygen Delivery Method Room Air 05/10/25 01:20 05/10/25 01:41 05/10/25 04:57 Temperature Pulse Rate 81 82 Respiratory Rate 13 13 Blood Pressure 89/34 L 96/45 L 111/55 L Pulse Oximetry 87 L Oxygen Delivery Method Room Air BMI result Body Mass Index 49.6 Course Course Course Narrative: RME, this is a rapid medical exam performed by Randell French please refer to primary provider for complete H&P- 65-year-old female with a past medical history significant for COPD, mood disorder, diabetes, hypertension, COPD, heart failure presents for evaluation of ?CHF and FELICIA.? She was an expect from [facility]. She presents for evaluation of chest pain and shortness of breath Medications Administered Generic Name Dose Route Start Last Admin Trade Name Freq PRN Reason Stop Dose Admin Buspirone HCl 30 mg 05/10/25 21:45 05/11/25 09:59 Buspirone Hcl 10 Mg Tablet PO 30 mg BID HI Administration Clonidine HCl 0.1 mg 05/10/25 21:45 05/11/25 09:59 Clonidine Hcl 0.1 Mg Tablet PO 0.1 mg TID HI Administration Protocol Duloxetine HCl 60 mg 05/11/25 09:00 05/11/25 09:59 Duloxetine Hcl 60 Mg Capsule.Dr PO 60 mg DAILY HI Administration Gabapentin 400 mg 05/10/25 21:45 05/11/25 09:59 Gabapentin 400 Mg Capsule PO 400 mg BID@0900,1500 HI Administration Heparin Sodium (Porcine) 5,000 unit 05/10/25 08:00 05/11/25 09:58 Heparin Sodium,Porcine 5,000 Unit/Ml Vial SUBCUT 5,000 unit Q8H HI Administration Insulin Human Lispro 0 unit 05/10/25 07:30 05/11/25 09:51 Insulin Lispro 100 Unit/Ml 3 Ml Vial SUBCUT Not Given QIDACHS HI Protocol Prazosin HCl 1 mg 05/10/25 21:45 05/10/25 21:54 Prazosin Hcl 1 Mg Capsule PO 1 mg BEDTIME HI Administration Protocol Risperidone 1 mg 05/10/25 21:45 05/10/25 21:54 Risperidone 1 Mg Tablet PO 1 mg BEDTIME HI Administration Sertraline HCl 75 mg 05/11/25 09:00 05/11/25 09:59 Sertraline Hcl 25 Mg Tablet PO 75 mg DAILY HI Administration Sodium Chloride 3 ml 05/10/25 08:00 05/11/25 09:59 0.9 % Sodium Chloride Flush 3 Ml Syringe IVFLUSH 3 ml QSHIFT HI Administration Trazodone HCl 150 mg 05/10/25 21:42 05/10/25 21:54 Trazodone Hcl 50 Mg Tablet PO 150 mg BEDTIME PRN Administration Insomnia Discontinued Medications Generic Name Dose Route Start Last Admin Trade Name Pankaj PRN Reason Stop Dose Admin Aspirin 325 mg 05/09/25 21:40 05/09/25 21:50 Aspirin 325 Mg Tablet PO 05/09/25 21:41 325 mg ONCE ONE Administration Furosemide 40 mg 05/09/25 21:37 05/09/25 22:38 Furosemide 40 Mg/4 Ml Vial IVPUSH 05/09/25 21:38 40 mg ONCE ONE Administration Protocol Lorazepam 1 mg 05/09/25 21:22 05/09/25 21:25 Lorazepam 1 Mg Tablet PO 05/09/25 21:23 1 mg ONCE ONE Administration Midodrine 5 mg 05/10/25 01:14 05/10/25 01:20 Midodrine Hcl 5 Mg Tablet PO 05/10/25 01:15 5 mg ONCE ONE Administration Medical Decision Making Medical Decision Making MDM Narrative: Patient presents today with chief complaint of shortness of breath. Differential diagnosis includes, but is not limited to, upper respiratory infection, pneumonia, COPD exacerbation, asthma exacerbation, CHF, pneumothorax, pleural effusion, pulmonary embolism, ACS. Broad-based work-up will be initiated to evaluate for etiology of patient's symptoms. 11:04 p.m. 05/09/2025 patient is hemodynamically stable. Blood pressure improved since being triage. She is extremely anxious, requiring anxiolysis. She is refusing admission. Though I do believe that she could use diuresis. Her kidney function is progressively worsening over time however, she is requesting to be diuresed and discharged. We will give a dose of IV Lasix. 1:08 AM 05/10/2025 (Dr. Trisha Knowles, D.O.) blood pressures dropping substantially. She has a blood pressure of 80 over 40. Attempted putting her legs up however, blood pressure remains soft. We will give a dose of midodrine. She had received Ativan and Lasix earlier which certainly did not help her blood pressure. She is mentating appropriately and has a normal heart rate though. She has no complaints. She is sleeping. 4:57 AM 05/10/2025 (Dr. Trisha Knowles, D.O.) patient continues to have issues with hypoxia with rest. Oxygen drops into the mid 80s. Her blood pressure remains soft and she was given a dose of midodrine which did seem to help significantly. Given her overall clinical picture of heart failure, I have encouraged her to stay in the hospital for diuresis and continued evaluation of her kidney function and CHF. Patient is now agreeing to stay. Admitted in guarded condition. Differential Diagnosis Differential Diagnoses: The differential diagnosis associated with the presentation includes (As above) Admission/Observation Consideration of admission/observation: Escalation of care including admission/observation considered Lab Data MDM Lab Attestation statement: I reviewed the patient's lab results. 05/11/25 06:10 05/11/25 06:10 Labs: Lab Results 05/09/25 05/10/25 Range/Units 18:46 00:19 WBC 8.2 (4.8-10.8) X10*3/uL RBC 3.83 L (4.20-5.50) X10*6/uL Hgb 11.0 L (12.0-16.0) g/dl Hct 35.4 L (37.0-47.0) % MCV 92.4 (80.0-98.0) fL MCH 28.7 (27.0-33.0) pg MCHC 31.1 (31.0-35.0) g/dl RDW 13.8 (11.0-16.0) % Plt Count 175 D (160-400) X10*3/uL MPV 10.0 (9.4-12.3) fL Immature Gran % (Auto) 0.9 H (0.0-0.4) % Neut % (Auto) 76.5 H (45-73) % Lymph % (Auto) 13.1 L (20-40) % [place] % (Auto) 6.9 (2-11) % Eos % (Auto) 2.4 (0-4) % Baso % (Auto) 0.2 (0-2) % Lymph # (Auto) 1.1 L (1.2-4.9) X10*3/uL [place] # (Auto) 0.6 (0.1-1.2) X10*3/uL Eos # (Auto) 0.2 (0.0-0.4) X10*3/uL Baso # (Auto) 0.0 (0.0-0.2) X10*3/uL Abs Immat Gran (auto) 0.07 H (0.00-0.03) X10*3/uL Absolute Neuts (auto) 6.3 (2.0-8.3) x10*3/uL Absolute Nucleated RBC 0.000 (0.0-0.012) X10*3/uL Nucleated RBC % (auto) 0.0 (0.0-0.2) /100WBC Sodium 141 (135-145) mmol/L Potassium 5.0 (3.3-5.1) mmol/L Chloride 108 (96-108) mmol/L Carbon Dioxide 27 (22-29) mmol/L Anion Gap 11 L (12-20) BUN 32 H (9-16) mg/dL Creatinine 2.33 H (0.5-1.4) mg/dL Estim Creat Clear Calc TNP Estimated GFR 21 Random Glucose 206 H (60-115) mg/dL Calcium 8.4 (8.4-10.2) mg/dL Total Bilirubin 0.2 (0.0-1.0) mg/dL AST 12 (5-31) U/L ALT < 6 (0-31) U/L Alkaline Phosphatase 107 (39-117) U/L Troponin I High Sens 14.1 13.9 (<3.5-17.0) ng/L NT-Pro-B Natriuret Pep 785.6 H (<300) pg/mL Total Protein 6.4 L (6.5-8.0) g/dL Albumin 4.0 (3.5-5.0) g/dL Lipase 7 L (8-78) U/L Independent Interpretation I performed an independent interpretation of an: EKG and Plain X-Ray Interpretation: My independent interpretation of the chest x-ray reveals no consolidations, pneumothorax, obvious bony abnormalities. Slight pulmonary edema, bilateral pleural effusions. Radiology Impression Discussion of test interpretation with radiology: I have reviewed the radiologist's reading. External Record Review External record reviewed: Inpatient record and Office record Chronic Conditions Patient?s care impacted by: Hypertension and Other (CHF, COPD, BMI 50) Discharge Plan Discharge Clinical Impression: FELICIA (acute kidney injury) Patient Disposition: Admitted As Inpatient Interventions: Admission Worksheet (ED) Last Done: 05/10/25 19:18 Discharge Date/Time: 05/10/25 20:07
--- NOTE | 2025-05-09 18:21 | ECG_ITS ---
Test Reason : CHEST PAIN Blood Pressure : */* mmHG Vent. Rate : 90 BPM Atrial Rate : 90 BPM P-R Int : 172 ms QRS Dur : 98 ms QT Int : 402 ms P-R-T Axes : 60 30 67 degrees QTcB Int : 491 ms Normal sinus rhythm Nonspecific T wave abnormality Prolonged QT Abnormal ECG When compared with ECG of 31-Jan-2025 15:39, No significant change was found Referred By: Mart French Electronically Signed By: GARTH RECINOS MD
[2025-05-09 18:52] LABS: MANUAL DIFF FLAG NO
[2025-05-09 19:06] LABS: Hematocrit 35.4 % (37.0-47.0); Hemoglobin 11.0 g/dl (12.0-16.0); Imm Gran Abs Auto 0.07 X10*3/uL (0.00-0.03); Imm Gran Pct Auto 0.9 % (0.0-0.4); Lymphocytes Absolute Auto 1.1 X10*3/uL (1.2-4.9); Mean Corpuscular HGB Conc 31.1 g/dl (31.0-35.0); Mean Corpuscular Hemoglobin 28.7 pg (27.0-33.0); Mean Corpuscular Volume 92.4 fL (80.0-98.0); NRBC Abs Auto 0.000 X10*3/uL (0.0-0.012); NRBC Pct Auto 0.0 /100WBC (0.0-0.2); Platelet Count 175 X10*3/uL (160-400); Red Blood Count 3.83 X10*6/uL (4.20-5.50); White Blood Count 8.2 X10*3/uL (4.8-10.8)
[2025-05-09 19:08] LABS: Alanine Aminotransferase < 6 U/L (0-31); Albumin Level 4.0 g/dL (3.5-5.0); Alkaline Phosphatase 107 U/L (39-117); Anion Gap 11 (12-20); Aspartate Amino Transferase 12 U/L (5-31); Blood Urea Nitrogen 32 mg/dL (9-16); Calcium 8.4 mg/dL (8.4-10.2); Carbon Dioxide 27 mmol/L (22-29); Chloride 108 mmol/L (96-108); Estimated Glomerular Filt Rate 21; Lipase 7 U/L (8-78); Potassium 5.0 mmol/L (3.3-5.1); Sodium 141 mmol/L (135-145); Total Protein 6.4 g/dL (6.5-8.0)
[2025-05-09 19:09] VITALS: BP 105/58; PULSE 91; RESP 20; TEMP 36.9; O2SAT 93; BMI 49.6
[2025-05-09 19:14] LABS: NT Pro B Type Natriuretic Pept 785.6 pg/mL (<300); Troponin-I High Sensitivity 14.1 ng/L (<3.5-17.0)
[2025-05-09 20:26] VITALS: TEMP 37.1
[2025-05-09 21:06] VITALS: BP 148/44; PULSE 93; RESP 20
--- NOTE | 2025-05-09 21:41 | PC.NURSE ---
Pt started having a panic attack/ screaming, crying, begging to go home, begging for her meds. Pts daughter called and stated pt needs her anxiety meds. RN informed MD edward who put a stat order for anxiety meds. Pt wanted to be moved to a chair so she was moved to a recliner, medicated per MAR. Will continue to monitor.
--- NOTE | 2025-05-09 21:52 | PC.NURSE ---
pt is a hard stick; RN attempted to get a line x2. RN to ask another RN for assistance. Pt needs a line as MD ordered IV medications.
--- NOTE | 2025-05-09 22:25 | PC.NURSE ---
Addendum entered by Tiffany Infante RN 05/09/25 22:36: #18 US IV LAC done by PEPE mcginnis. This RN to administer meds per SEP. Original Note: Delay in IV med adminstration- Other RN putting an US IV line.
[2025-05-09 22:38] VITALS: BP 103/30
[2025-05-09] MEDS: Furosemide 40 MG/4 ML VIAL IVPUSH (22:38)
[2025-05-10] VITALS (12 sets, daily range): BP systolic 87–156; BP diastolic 34–68; PULSE 81–96; RESP 12–21; TEMP 36.6–36.7; O2SAT 87–98; BMI 49.5
--- NOTE | 2025-05-10 00:36 | PC.NURSE ---
Addendum entered by Tiffany Infante RN 05/10/25 01:55: pt medicated per mar; feet elevated on recliner. Original Note: MD made aware of pts soft bps; MD ordered for pts fit to be elevated and BP to be rechecked.
[2025-05-10 00:46] LABS: Troponin-I High Sensitivity 13.9 ng/L (<3.5-17.0)
--- NOTE | 2025-05-10 02:57 | PC.NURSE ---
pt was destating while provider was in the rm- provider put pt on 2L NC.
--- NOTE | 2025-05-10 04:59 | HO.NURTONUR ---
Per MD, pt was take off 2L O2 to see if patient would tolerate. About 20 min later, pt began to destat in the upper 80s. Pt was placed back on 2L NC. MD stated to keep pts O2 above 91 with O2 on.
--- NOTE | 2025-05-10 06:36 | PM.IMHP ---
History of Present Illness Date of Service: 05/10/25 Attending physician on admission: Zaheer Forte Chief Complaint: SOB 64-year-old female with a history of COPD, CHF, diabetes, vertigo, DANIEL, hypertension, obesity, and cardiomyopathy, who presented to the ED due to worsening weakness, malaise, fatigue, shortness of breath and substernal chest discomfort for the past few weeks. His symptoms have been worsening. She also describes lower extremity pitting edema. She has orthopnea and dyspnea on exertion. The patient was very anxious when she arrived to the ED and has been somnolent since receiving Ativan. She was diuresed with 40 mg of IV Lasix and blood pressure dropped significantly, but improved with midodrine. The patient had reported to the ED provider that she was told to come to the emergency department due to fluid in her lungs and worsening kidney function. She denied any cough with sputum, known sick contacts, urinary complaints or abdominal pain. She states she has been taking her medications as prescribed and is not consume salt however this is unlikely given the [employer] food with her. Review of Systems Review of Systems: Yes Unobtainable due to mental status [facility] Medical History Mood disorder Panic disorder Diabetic nephropathy Cataracts, bilateral DANIEL (obstructive sleep apnea) COPD (chronic obstructive pulmonary disease) NICM (nonischemic cardiomyopathy) Hypertension Elevated d-dimer FELICIA (acute kidney injury) Abdominal pain Constipation Chronic respiratory failure with hypoxia Stercoral colitis Decubitus ulcer Hypoxia CHF exacerbation MDD (major depressive disorder), recurrent episode, moderate Adjustment disorder with mixed anxiety and depressed mood Cellulitis of right lower extremity Stasis dermatitis of both legs Asthma Hyperglycemia due to diabetes mellitus Congestive heart failure Obesity hypoventilation syndrome CKD (chronic kidney disease) stage 3, GFR 30-59 ml/min Acute on chronic combined systolic and diastolic CHF (congestive heart failure) Morbid obesity Diabetic neuropathy, painful Chronic pain High cholesterol Depression Diabetes Family History Mother HTN (hypertension) Diabetes CAD (coronary artery disease) Father HTN (hypertension) Diabetes CAD (coronary artery disease) Maternal Grandmother CAD (coronary artery disease) Surgical History History of surgery Hx of cholecystectomy Social History Household Members: None Household Members Other:: GRANDSON Housing: House 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 Do you presently have visiting nurse or other home services: Yes Alcohol intake: current Alcohol intake frequency: holidays/special occasions only Alcohol type: wine Comment: 1:1 Patient Tobacco Use Status: Former Tobacco user Tobacco use type: Cigarette Years Smoked: 38 Smoked in Last 30 Days: No e-Cigarette/Vaping Use: Never Used Second Hand Smoke Exposure: No Use of substances other than those prescribed or required for medical reasons: No Substance Use Type: Former Substance User Advance Directives: Yes Advance Directives Information Provided: Yes Advance Directives on File: No Advance Directives Date on File: 04/30/23 service: No Current occupational status: disabled Current occupation: rt handed Cognitive needs: Yes (walker, cane) Hearing needs: No Vision needs: Yes (Rx glasses) Meds Allergies Allergy/AdvReac Type Severity Reaction Status Date / Time ibuprofen Allergy Intermediate vomiting, Verified 05/09/25 19:15 itching acetaminophen (Tylenol) Allergy Unknown Unknown Verified 05/09/25 19:15 codeine AdvReac Severe Anaphylaxis Verified 05/09/25 19:15 morphine AdvReac Intermediate vomiting Verified 05/09/25 19:15 vancomycin AdvReac Intermediate Itching Verified 05/09/25 19:15 Active Medications: Current Medications Calcium Carbonate (Calcium Carbonate 750 Mg Tab.Chew) 750 mg PO Q4H PRN PRN Reason: Heartburn Glucose (Glucose Gel 15 Gm Gel..Gram.) 15 gm PO Q15M PRN; Protocol PRN Reason: per Hypoglycemia Standing Ord. Heparin Sodium (Porcine) (Heparin Sodium,Porcine 5,000 Unit/Ml Vial) 5,000 unit SUBCUT Q8H HI Magnesium Hydroxide (Milk Of Magnesia 30 Ml Oral.Susp) 30 ml PO DAILY PRN PRN Reason: Constipation Melatonin (Melatonin 3 Mg Tablet) 6 mg PO BEDTIME PRN PRN Reason: Insomnia Oxycodone HCl (Oxycodone Hcl Immed Release 5 Mg Tablet) 5 mg PO Q6H PRN PRN Reason: Pain, Severe (Pain Scale 7-10) Sodium Chloride (0.9 % Sodium Chloride Flush 3 Ml Syringe) 3 ml IVFLUSH QSHIFT [facility] Home Medications ?Medication ?Instructions ?Recorded ?Confirmed ?Last Taken ?Type insulin syringe-needle U-100 1 mL 09/27/22 05/09/25 Unknown History 31 gauge x 5/16 (BD Insulin Syringe Ultra-Fine) metoprolol succinate 50 mg 50 mg PO DAILY 09/21/23 05/09/25 01/31/25 History tablet,extended release 24 hr prazosin 1 mg capsule 1 mg PO BEDTIME 09/21/23 05/09/25 01/30/25 History buspirone 30 mg tablet 30 mg PO BID 01/31/25 05/09/25 01/31/25 History ketorolac 0.5 % eye drops 1 drp ophthalmic (eye) TID 01/31/25 05/09/25 01/31/25 History allopurinol 100 mg tablet 100 mg PO DAILY 02/01/25 05/09/25 01/31/25 History clonidine HCl 0.1 mg tablet 0.1 mg PO TID 02/01/25 05/09/25 01/31/25 History diclofenac sodium 1 % topical gel 4 g topical QID PRN Pain 02/01/25 05/09/25 Unknown History duloxetine 60 mg capsule,delayed 60 mg PO DAILY 02/01/25 05/09/25 01/31/25 History release insulin glargine 100 unit/mL (3 60 unit subcut BEDTIME 02/01/25 05/09/25 01/30/25 History mL) subcutaneous pen (Lantus Solostar U-100 Insulin) pantoprazole 20 mg tablet,delayed 20 mg PO BEDTIME@1800 02/01/25 05/09/25 01/30/25 History release risperidone 0.5 mg tablet 0.5 mg PO BID 02/01/25 05/09/25 01/31/25 History tirzepatide (weight loss) 5 mg/0.5 5 mg subcut WE 02/01/25 05/09/25 01/25/25 History mL subcutaneous pen injector (Zepbound) Physical Exam Vital Signs and Narrative: Vital Signs: Last Vital Signs Temp 98.7 F 05/09/25 20:26 Pulse 82 05/10/25 04:57 Resp 13 05/10/25 04:57 BP 111/55 L 05/10/25 04:57 Pulse Ox 87 L 05/10/25 04:57 O2 Del Method Room Air 05/10/25 04:57 BMI result Body Mass Index 49.6 General: Somnolent, will not respond to questions but angry when you touch her legs, no acute distress Resp: Difficult to assess as patient will not follow direction, diminished throughout CVS: S1, S2, RRR GI: +BS, NT, obese Skin: Warm, dry Neuro: Cranial nerves II-XII grossly intact bilaterally. Motor grossly intact bilaterally Extremities: Pitting edema, unable to determine stage as patient will not allow compression Psych: Somnolent Results Labs 05/09/25 18:46 05/09/25 18:46 Labs: Laboratory Results - last 24 hr 05/09/25 05/10/25 18:46 00:19 MCV 92.4 MCH 28.7 MCHC 31.1 RDW 13.8 Plt Count 175 D MPV 10.0 Immature Gran % (Auto) 0.9 H Neut % (Auto) 76.5 H Lymph % (Auto) 13.1 L [place] % (Auto) 6.9 Eos % (Auto) 2.4 Baso % (Auto) 0.2 Lymph # (Auto) 1.1 L [place] # (Auto) 0.6 Eos # (Auto) 0.2 Baso # (Auto) 0.0 Abs Immat Gran (auto) 0.07 H Absolute Neuts (auto) 6.3 Absolute Nucleated RBC 0.000 Nucleated RBC % (auto) 0.0 Anion Gap 11 L Estim Creat Clear Calc TNP Estimated GFR 21 Random Glucose 206 H Calcium 8.4 Total Bilirubin 0.2 AST 12 ALT < 6 Alkaline Phosphatase 107 Troponin I High Sens 14.1 13.9 NT-Pro-B Natriuret Pep 785.6 H Total Protein 6.4 L Albumin 4.0 Lipase 7 L Assessment and Plan (1) Acute respiratory failure with hypoxia: Status: Acute (2) CHF exacerbation: Status: Acute (3) Acute kidney injury superimposed on CKD: Status: Acute (4) Morbid obesity due to excess calories: Status: Acute Plan 64-year-old female with a history of COPD, CHF, diabetes, vertigo, DANIEL, hypertension, obesity, and cardiomyopathy, who presented to the ED due to worsening weakness, malaise, fatigue, shortness of breath and substernal chest discomfort for the past few weeks. Patient became hypotensive with IV Lasix, improved with midodrine. Hypoxic with ambulation, requiring admission Acute hypoxic respiratory failure in the setting of acute CHF exacerbation - echo - cardiology consult - defer further diuretics to Cardiology due to severe hypotension FELICIA on CKD - cr 2.33 from 1.32 - renal US - nephrology consult COPD unspecified without acute exacerbation - continue home therapies Diabetes - sliding scale insulin - Lantus once med rec done, pt unable to provide dose at this time DANIEL - ?CPAP will need to confirm with pt when awake HTN - hold BP meds due to hypotensive episode mood - continue home meds morbid obesity - weight loss encouraged med rec pending full code VTE prophy: heparin Patient with acute hypoxic respiratory failure in the setting of acute CHF exacerbation complicated by FEILCIA on CKD, requiring admission for at least 2 midnight stay for diuresis, further evaluation and monitoring. Quality Stroke Does the patient have a stroke diagnosis?: No VTE Prior VTE?: No VTE Risk Level:: Medical - moderate - high VTE Device Contraindication: Treatment Not Indicated VTE Drug Contraindication: N/A - Med Ordered
[2025-05-10 07:06] LABS: Glucose, Whole Blood 146 mg/dL (60-115)
--- NOTE | 2025-05-10 07:41 | PM.EVENT ---
Event Note Date of Service: 05/10/25 Event Note: Patient was seen and examined; history and physical, laboratory results, imaging, and medications were reviewed. This is a 64-year-old female with a past medical history of COPD, CHF, diabetes, vertigo, DANIEL, hypertension, obesity, and cardiomyopathy, who presented to the ED with several weeks of worsening weakness, malaise, fatigue, shortness of breath, and substernal chest discomfort. Troponin I was within normal limits, ECG showed no ischemic changes, and Pro-BNP was 785. On presentation, the patient was hypotensive and had evidence of acute kidney injury. Despite this, she received Lasix, followed by Midodrine. The clinical picture is not consistent with acute heart failure but rather suggests volume depletion. Recommend avoiding further diuretics, initiating intravenous fluids, and obtaining a nephrology consultation. Cardiology consultation can be deferred at this time. Time Spent With Patient Time: Total time managing care of this patient today ____ minutes.
--- NOTE | 2025-05-10 08:55 | PC.NURSE ---
Pt scheduled for renal u/s. Pt refuses to return to stretcher temporarily for u/s procedure. She states the stretcher caused back pain and the recliner does not. U/S unable to perform procedure in recliner. Will attempt to obtain hospital bed to make Pt more comfortable and contact U/S for procedure.
[2025-05-10] MEDS: 0.9 % Sodium Chloride Flush 3 ML SYRINGE IVFLUSH ×3 (09:11→21:55)
--- NOTE | 2025-05-10 10:47 | MHC.CM.PN ---
CM met with Patient at bedside, in the ED. Patient lives alone in a house, has home O2 from [facility], and uses a walker to assist with mobility. Returning home is the Patient's goal and CM has initiated and will follow for dc planning. PCP/PA is Celia Horn and Breanna will transport to home at dc.
[2025-05-10 12:16] LABS: Glucose, Whole Blood 177 mg/dL (60-115)
[2025-05-10 15:53] LABS: Appearance Urine Clear; Glucose Urine UA Negative (Negative); PH 5.0 (5.0-9.0); Specific Gravity - Urine 1.015 (1.005-1.025)
[2025-05-10 17:58] LABS: Glucose, Whole Blood 122 mg/dL (60-115)
--- NOTE | 2025-05-10 19:13 | HO.NURTONUR ---
pt biba to the ed for intermittent chest pain/pressure over the past few weeks, worse today. c/o SOB on exertion, dizziness, general weakness, poor appetite and feeling more tired than normal. initial BP in triage 89/51. Labs obtained in ed which revealed CHF, pt received iv lasix which lowered bp and then pt received midodrin, BP Stable since. pt has 18G US IV in Left ac. Pt on 2L nc. pt admitted for- CHF, acute respiratory failure and FELICIA. pt awaiting cardiology and nephrology consults. a&ox4, and ambulatory at baseline. pt is in hospital bed.
--- NOTE | 2025-05-10 21:03 | PM.CNNEP ---
History of Present Illness Reason for Consult Consult date: 05/10/25 Reason for consult: FELICIA Chief Complaint Chief complaint: hypoxia History of Present Illness Narrative: RTANE consulted for FELICIA on CKD 3 with H/O recurrent FELICIA from dCHF/CRSyn In summary 64 y/o Obese F w H/O recurrent FELICIA, COPD, CHF with previous Card eval in oast and mention made of non-ischemic HFrEF, diabetes, vertigo, DANIEL, hypertension, obesity,, who presented to the ED due to worsening weakness, malaise, fatigue, shortness of breath and substernal chest discomfort for the past few weeks. Patient became hypotensive with IV Lasix, improved with midodrine and IVF and d/c diuretics PT is a poor histroian with c/o of gen weakness and WHITE. No GH/dysuria PMH as noted below Review of Systems Review of Systems As per HPI, full review of systems performed and negative but for the above mentioned pertinent positives and negatives. Yes Unobtainable due to mental status PMFSH Past Medical History Medical History Mood disorder Panic disorder Diabetic nephropathy Cataracts, bilateral DANIEL (obstructive sleep apnea) COPD (chronic obstructive pulmonary disease) NICM (nonischemic cardiomyopathy) Hypertension Elevated d-dimer FELICIA (acute kidney injury) Abdominal pain Constipation Chronic respiratory failure with hypoxia Stercoral colitis Decubitus ulcer Hypoxia CHF exacerbation MDD (major depressive disorder), recurrent episode, moderate Adjustment disorder with mixed anxiety and depressed mood Cellulitis of right lower extremity Stasis dermatitis of both legs Asthma Hyperglycemia due to diabetes mellitus Congestive heart failure Obesity hypoventilation syndrome CKD (chronic kidney disease) stage 3, GFR 30-59 ml/min Acute on chronic combined systolic and diastolic CHF (congestive heart failure) Morbid obesity Diabetic neuropathy, painful Chronic pain High cholesterol Depression Diabetes Family History Family History Mother HTN (hypertension) Diabetes CAD (coronary artery disease) Father HTN (hypertension) Diabetes CAD (coronary artery disease) Maternal Grandmother CAD (coronary artery disease) Surgical History Surgical History History of surgery Hx of cholecystectomy Social History Social History Household Members: None Household Members Other:: GRANDSON Housing: House 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 Do you presently have visiting nurse or other home services: Yes Alcohol intake: current Alcohol intake frequency: holidays/special occasions only Alcohol type: wine Comment: 1:1 Patient Tobacco Use Status: Former Tobacco user Tobacco use type: Cigarette Years Smoked: 38 e-Cigarette/Vaping Use: Never Used Second Hand Smoke Exposure: No Substance Use Type: Former Substance User Advance Directives Date on File: 04/30/23 service: No Current occupational status: disabled Current occupation: rt handed Cognitive needs: Yes (walker, cane) Hearing needs: No Vision needs: Yes (Rx glasses) Meds Allergies Allergy/AdvReac Type Severity Reaction Status Date / Time ibuprofen Allergy Intermediate vomiting, Verified 05/09/25 19:15 itching acetaminophen (Tylenol) Allergy Unknown Unknown Verified 05/09/25 19:15 codeine AdvReac Severe Anaphylaxis Verified 05/09/25 19:15 morphine AdvReac Intermediate vomiting Verified 05/09/25 19:15 vancomycin AdvReac Intermediate Itching Verified 05/09/25 19:15 Active Medications: Current Medications Calcium Carbonate (Calcium Carbonate 750 Mg Tab.Chew) 750 mg PO Q4H PRN PRN Reason: Heartburn Dextrose (Dextrose 50 % 25 Gm/50 Ml Syringe) 25 gm IVPUSH Q15M PRN; Protocol PRN Reason: per Hypoglycemia Standing Ord. Glucose (Glucose Gel 15 Gm Gel..Gram.) 15 gm PO Q15M PRN; Protocol PRN Reason: per Hypoglycemia Standing Ord. Heparin Sodium (Porcine) (Heparin Sodium,Porcine 5,000 Unit/Ml Vial) 5,000 unit SUBCUT Q8H [facility] Last Admin: 05/10/25 18:08 Dose: 5,000 unit Insulin Human Lispro (Insulin Lispro 100 Unit/Ml 3 Ml Vial) 0 unit SUBCUT QIDACHS [facility]; Protocol Last Admin: 05/10/25 17:59 Dose: Not Given Magnesium Hydroxide (Milk Of Magnesia 30 Ml Oral.Susp) 30 ml PO DAILY PRN PRN Reason: Constipation Melatonin (Melatonin 3 Mg Tablet) 6 mg PO BEDTIME PRN PRN Reason: Insomnia Oxycodone HCl (Oxycodone Hcl Immed Release 5 Mg Tablet) 5 mg PO Q6H PRN PRN Reason: Pain, Severe (Pain Scale 7-10) Sodium Chloride (0.9 % Sodium Chloride Flush 3 Ml Syringe) 3 ml IVFLUSH QSHIFT [facility] Last Admin: 05/10/25 18:08 Dose: 3 ml Home Medications ?Medication ?Instructions ?Recorded ?Confirmed ?Last Taken ?Type insulin syringe-needle U-100 1 mL 09/27/22 05/09/25 Unknown History 31 gauge x 5/16 (BD Insulin Syringe Ultra-Fine) metoprolol succinate 50 mg 50 mg PO DAILY 09/21/23 05/09/25 01/31/25 History tablet,extended release 24 hr prazosin 1 mg capsule 1 mg PO BEDTIME 09/21/23 05/09/25 01/30/25 History buspirone 30 mg tablet 30 mg PO BID 01/31/25 05/09/25 01/31/25 History ketorolac 0.5 % eye drops 1 drp ophthalmic (eye) TID 01/31/25 05/09/25 01/31/25 History allopurinol 100 mg tablet 100 mg PO DAILY 02/01/25 05/09/25 01/31/25 History clonidine HCl 0.1 mg tablet 0.1 mg PO TID 02/01/25 05/09/25 01/31/25 History diclofenac sodium 1 % topical gel 4 g topical QID PRN Pain 02/01/25 05/09/25 Unknown History duloxetine 60 mg capsule,delayed 60 mg PO DAILY 02/01/25 05/09/25 01/31/25 History release insulin glargine 100 unit/mL (3 60 unit subcut BEDTIME 02/01/25 05/09/25 01/30/25 History mL) subcutaneous pen (Lantus Solostar U-100 Insulin) pantoprazole 20 mg tablet,delayed 20 mg PO BEDTIME@1800 02/01/25 05/09/25 01/30/25 History release tirzepatide (weight loss) 5 mg/0.5 5 mg subcut WE 02/01/25 05/09/25 01/25/25 History mL subcutaneous pen injector (Zepbound) linaclotide 290 mcg capsule 290 mcg PO DAILY 05/10/25 Unknown History (Linzess) risperidone 1 mg tablet 1 mg PO BEDTIME 05/10/25 Unknown History trazodone 150 mg tablet 150 - 300 mg PO BEDTIME PRN 05/10/25 Unknown History insomnia Physical Exam Vital Signs: Last Vital Signs Temp 98.1 F 05/10/25 20:58 Pulse 91 05/10/25 20:58 Resp 18 05/10/25 20:58 BP 133/68 05/10/25 20:58 Pulse Ox 96 05/10/25 20:58 O2 Del Method Room Air 05/10/25 20:58 O2 Flow Rate 2 05/10/25 19:24 BMI result Body Mass Index 49.6 Results Lab Results 05/09/25 18:46 05/09/25 18:46 Lab results: Chemistry 05/09/25 18:46 Sodium 141 Potassium 5.0 Carbon Dioxide 27 BUN 32 H Creatinine 2.33 H Calcium 8.4 Hematology 05/09/25 18:46 WBC 8.2 Hgb 11.0 L Plt Count 175 D Urinalysis 05/10/25 15:45 Urine Color Yellow Urine Appearance Clear Urine pH 5.0 Ur Specific [place] 1.015 Urine Protein Negative Urine Glucose (UA) Negative Urine Ketones Negative Urine Blood Negative Urine Nitrite Negative Ur Leukocyte Esterase Negative Urine RBC 0-2 Urine WBC 0-5 Ur Squamous Epith Cells 3-5 Hyaline Casts 3-5 Assessment and Plan (1) Acute respiratory failure with hypoxia: Status: Acute (2) CHF exacerbation: Status: Acute (3) Acute kidney injury superimposed on CKD: Status: Acute (4) Morbid obesity due to excess calories: Status: Acute Plan FELICIA: most c/w CRSyndrome ( i.e. hemodynamic mediated renal dysfunc with ques of renal congestion vs poor forward flow to kidneys) but other causes being r/o U/S r/o Obs UA bland goes against AGN or AIN Pre-renal--> ischemic ATN a possibility CKD 3: abile renal func; c/w chronic CRSyn and/or underlying DN Resp dysfunc: COPD and/or CHF REC: card consult and card echo, check spot urine studies; avoid NToxins, may need RH cath to optimize volume/diuretic management and poss need for inotropic interventions; need to consider Cardiomems to help in chronic outpt management Will follow symone with team Procedures Date of Service Date of Service: 05/10/25
[2025-05-10 21:12] LABS: Glucose, Whole Blood 145 mg/dL (60-115)
--- NOTE | 2025-05-10 21:21 | PHA.MEDREC ---
Addendum entered by Jasper Macdonald PharmD 05/11/25 13:52: Tried contacting Stanley, he said to call him back later in the day but now seems unavailable. Lorazepam was filled on PDMP last month. Original Note: Pharmacy Consult ? Medication Reconciliation Spoke with Ursula, daughter, she tired to help us get in contact with Stanley, RN ([phone]) as well as Stanley's relative, [employer] ([phone]). Daughter states that [employer] and Stanley work together and should be together. Left multiple voicemails to confirm medications. Will ask morning team to follow up with Stanley/[employer] in the morning. Confirmed meds using recent claims for now, until we can follow up nurses in morning.
[2025-05-11 03:47] VITALS: BP 110/56; PULSE 92; RESP 20; TEMP 36.4; O2SAT 98
--- NOTE | 2025-05-11 07:00 | CA_ITS ---
Transthoracic Echocardiogram Patient (Last, First, Middle): Lupis Mueller, Gender: Female Date of : 1960 Age: 65 Procedure Date: 05/11/2025 Procedure Type: Transthoracic Echocardiogram Location: [facility] [place] Height: 157.48 cm Weight: 122.93 kg BSA: 2.17 m2 Heart Rate: 90 bpm BP: 111 / 55 mmHg Tentering Machine Off Bearer: SB/QUOC Referring MD: Shereen Jordan PA-C Preparator: Joaquín Hunter MD Symptoms: CHF exacerbation Study Quality: Technically Difficult ECG Rhythm: Sinus Conclusions: - 1. Mildly reduced LV ejection fraction 45-50% with elevated filling pressures 2. Limited evaluation of cardiac valves with cardiac valvular Dopplers within normal limits Findings Procedure Information Contrast agent, definity, is being given per protocol without apparent complications. The quality of the study was technically difficult. The study quality is limited by patients body habitus and lung artifact. Left Ventricle The left ventricle was not well visualized. Normal left ventricular cavity size. There is normal left ventricular wall thickness. The left ventricular systolic function is mildly decreased. The visually estimated ejection fraction is between 45-50%. Spectral Doppler is indicative of an impaired relaxation filling pattern. Elevated filling pressures. E/E prime ratio is >15, consistent with elevated filling pressures. Right Ventricle The right ventricle was not well visualized. Atria The left atrium was not well visualized. Interatrial shunt cannot be excluded. The right atrium was not well visualized. Aortic Valve The aortic valve was not well visualized. There is no aortic valve stenosis. There is no aortic valve regurgitation. Mitral Valve The mitral valve was not well visualized. There is trace mitral valve regurgitation. There is no mitral valve stenosis. Pulmonic Valve The pulmonic valve was not well visualized. Tricuspid Valve The tricuspid valve was not well visualized. Tricuspid regurgitation envelope is inadequate for calculation of right ventricular systolic pressure. Indeterminate right atrial pressure. Great Vessels The aorta was not well visualized. The pulmonary artery was not well visualized. Venous The inferior vena cava was not well visualized. Pericardium/Pleural The pericardium was not well visualized. Prior Study Comparison Changes noted compared to prior study dated: 07/05/2024. LV ejection fraction has improved based on measurements Measurements 2D Linear Measurements IVSd: 1.04 0.6-0.9/0.6-1.0 cm LVIDd: 5.79 3.9-5.3/4.2-5.9 cm LVIDd Index: 2.67 2.4-3.2/2.2-3.1 cm/m2 LVPWd: 1.38 0.7-1.1 cm LA Diam: 3.70 2.7-3.8/3.0-4.0 cm LAIDs Index: 1.71 1.5-2.3 cm/m2 LV Mass: 373.65 67-162/88-224 g LV Mass Index: 172.19 43-95/49-115 g/m2 LVOT Diam: 2.30 3.0+(-)1.3 cm 2D Systolic Function EF 4C: 51.50 >55% EF 2C: 48.60 >55% EF BiP: 48.20 >55% Mitral Valve MV Pk E: 0.82 MV PK A: 1.11 MV Decel Time: 157.00 E/A: 0.70 E'Lateral: 5.87 E'Medial: 4.13 E/E' Med: 19.90 E/E' Lat: 14.00 PHT: 46.00 MVA PHT: 4.78 Decel Blanco: 5.23 Aortic Valve AoV Pk Jairo: 1.60 AoV Mn Jairo: 1.03 AoV VTI: 0.27 AoV Pk Grad: 10.00 Aov Mn Grad: 5.00 STEVE Cont.VTI: 2.77 LVOT LVOT Pk Jairo: 0.92 LVOT Mn Jairo: 0.65 LVOT VTI: 0.18 LVOT Pk Grad: 3.00 LVOT Mn Grad: 2.00 LVOT Diam: 2.30 LVOT Area: 4.15 Diastolic Function MV Pk E: 0.82 MV Pk A: 1.11 E/A: 0.70 E'Medial: 4.13 E/E' Med: 19.90 E' Laterial: 5.87 E/E' Lat: 14.00 Right Ventricle TAPSE (mm): 23.60 TVS' Jairo: 15.50 Tricuspid Valve RA Press: 15.00 Great Vessels Aorta Sinus of Valsalva: 3.10 2.0-3.5 cm Ao Asc: 3.50 2.1-3.4 cm Pulmonary Veins Pulm Vein S/D 1.20 Pulmonary Valve PV Pk Jairo: 0.82 Peak PV Grad: 3.00 Updated in Other Vendor System with Status of Final Joaquín Hunter MD electronically signed on 05/11/2025 4:49:40 PM with status of Final
[2025-05-11 07:04] LABS: Hematocrit 35.5 % (37.0-47.0); Hemoglobin 10.7 g/dl (12.0-16.0); Mean Corpuscular HGB Conc 30.1 g/dl (31.0-35.0); Mean Corpuscular Hemoglobin 28.5 pg (27.0-33.0); Mean Corpuscular Volume 94.4 fL (80.0-98.0); NRBC Abs Auto 0.000 X10*3/uL (0.0-0.012); NRBC Pct Auto 0.0 /100WBC (0.0-0.2); Platelet Count 157 X10*3/uL (160-400); Red Blood Count 3.76 X10*6/uL (4.20-5.50); White Blood Count 6.8 X10*3/uL (4.8-10.8)
[2025-05-11 07:30] LABS: Glucose, Whole Blood 155 mg/dL (60-115)
[2025-05-11 07:47] LABS: Anion Gap 15 (12-20); Blood Urea Nitrogen 33 mg/dL (9-16); Calcium 8.3 mg/dL (8.4-10.2); Carbon Dioxide 26 mmol/L (22-29); Chloride 108 mmol/L (96-108); Creatinine Clr Calc Pharmacy 36.6; Estimated Glomerular Filt Rate 26; Potassium 4.7 mmol/L (3.3-5.1); Sodium 144 mmol/L (135-145)
[2025-05-11 08:00] VITALS: BP 110/47; PULSE 92; RESP 20; TEMP 36.9; O2SAT 96
[2025-05-11 09:59] VITALS: BP 110/47
[2025-05-11] MEDS: 0.9 % Sodium Chloride Flush 3 ML SYRINGE IVFLUSH (09:59)
[2025-05-11 11:27] LABS: Glucose, Whole Blood 186 mg/dL (60-115)
[2025-05-11] MEDS: Flu Vacc TS2025-26(6mo up)/PF 0.5 ML SYRINGE IM (11:28)
[2025-05-11 12:00] VITALS: BP 127/58; PULSE 92; RESP 20; TEMP 36.6; O2SAT 94
--- NOTE | 2025-05-11 12:38 | P.DS_ITS ---
DS: Providers Provider Date of Service: 05/11/25 Date of admission: 05/10/25 06:30 Date of discharge: 05/11/25 Primary care physician: GUADALUPE Blackman Consults: 05/10/25 06:31 Consult to Nephrology Routine Consulting Provider: [facility] Reason for consultation: FELICAI, Cr 2.33 DS: Diagnosis Discharge Diagnosis (1) Acute respiratory failure with hypoxia: Status: Acute (2) CHF exacerbation: Status: Acute (3) Acute kidney injury superimposed on CKD: Status: Acute (4) Morbid obesity due to excess calories: Status: Acute DS: Summary Hospital Course Hospital Course: Chief Complaint: SOB 64-year-old female with a history of COPD, CHF, diabetes, vertigo, DANIEL, hypertension, obesity, and cardiomyopathy, who presented to the ED due to worsening weakness, malaise, fatigue, shortness of breath and substernal chest discomfort for the past few weeks. His symptoms have been worsening. She also describes lower extremity pitting edema. She has orthopnea and dyspnea on exertion. The patient was very anxious when she arrived to the ED and has been somnolent since receiving Ativan. She was diuresed with 40 mg of IV Lasix and blood pressure dropped significantly, but improved with midodrine. The patient had reported to the ED provider that she was told to come to the emergency department due to fluid in her lungs and worsening kidney function. She denied any cough with sputum, known sick contacts, urinary complaints or abdominal pain. She states she has been taking her medications as prescribed and is not consume salt however this is unlikely given the [employer] food with her. Hospital course: his is a 64-year-old female with a past medical history of COPD, CHF, diabetes, vertigo, DANIEL, hypertension, obesity, and cardiomyopathy, who presented to the ED with several weeks of worsening weakness, malaise, fatigue, shortness of breath, and substernal chest discomfort. Troponin I was within normal limits, ECG showed no ischemic changes, and Pro-BNP was 785. On presentation, the patient was hypotensive and had evidence of acute kidney injury. Despite this, she received Lasix, followed by Midodrine. The clinical picture is not consistent with acute heart failure but rather suggests volume depletion. Recommend avoiding further diuretics, initiating intravenous fluids, and obtaining a nephrology consultation. Cardiology consultation can be deferred at this time. Physical Exam Vital Signs: Vital Signs: Last Vital Signs Temp 98.4 F 05/11/25 08:00 Pulse 92 05/11/25 08:00 Resp 20 05/11/25 08:00 BP 110/47 L 05/11/25 09:59 Pulse Ox 96 05/11/25 08:00 O2 Del Method Nasal Cannula 05/11/25 08:00 O2 Flow Rate 1.5 05/11/25 08:00 BMI result Body Mass Index 49.5 DS: Data Data Completed and Pending Completed studies during hospitalization [Text1]: Procedures Assistance with Respiratory Ventilation, Less than 24 Consecutive Hours, Continuous Positive Airway Pressure (12/11/20) Excision of Buttock Subcutaneous Tissue and Fascia, Open Approach (04/20/22) Extirpation of Matter from Rectum, Via Natural or Artificial Opening (04/20/22) Labs on day of discharge: Laboratory Results - last 24 hr 05/10/25 05/10/25 05/10/25 15:45 17:55 21:07 WBC RBC Hgb Hct MCV MCH MCHC RDW Plt Count MPV Absolute Nucleated RBC Nucleated RBC % (auto) Sodium Potassium Chloride Carbon Dioxide Anion Gap BUN Creatinine Estim Creat Clear Calc Estimated GFR POC Glucose 122 H 145 H Random Glucose Calcium Urine Color Yellow Urine Appearance Clear Urine pH 5.0 Ur Specific [place] 1.015 Urine Protein Negative Urine Glucose (UA) Negative Urine Ketones Negative Urine Blood Negative Urine Nitrite Negative Ur Leukocyte Esterase Negative Urine RBC 0-2 Urine WBC 0-5 Ur Squamous Epith Cells 3-5 Urine Bacteria None Seen Hyaline Casts 3-5 05/11/25 05/11/25 05/11/25 06:10 07:26 11:23 WBC 6.8 RBC 3.76 L Hgb 10.7 L Hct 35.5 L MCV 94.4 MCH 28.5 MCHC 30.1 L RDW 13.8 Plt Count 157 L MPV 8.6 L Absolute Nucleated RBC 0.000 Nucleated RBC % (auto) 0.0 Sodium 144 Potassium 4.7 Chloride 108 Carbon Dioxide 26 Anion Gap 15 BUN 33 H Creatinine 1.94 H Estim Creat Clear Calc 36.6 Estimated GFR 26 POC Glucose 155 H 186 H Random Glucose 154 H Calcium 8.3 L Urine Color Urine Appearance Urine pH Ur Specific [place] Urine Protein Urine Glucose (UA) Urine Ketones Urine Blood Urine Nitrite Ur Leukocyte Esterase Urine RBC Urine WBC Ur Squamous Epith Cells Urine Bacteria Hyaline Casts Discharge Plan Discharge Anticipated Discharge Date/Time: 05/11/25 12:33 Patient Disposition: Left Against Medical Advice Discharge Diagnosis: FELICIA Referrals: Celia Horn PA [Primary Care Provider, Hospitalist] - 1 Week Discharge Medications: Continued (DME) blood-glucose meter [FreeStyle Lite Meter] Kit See Rx Instructions .Route Qty: 1 0RF Rx Instructions: As directed checks POC 4 X/day (DME) pen needle, diabetic [Comfort EZ Pen [place]] 31 gauge x 5/16 needle See Rx Instructions .Route Qty: 200 3RF Rx Instructions: 4 times daily insulin lispro [Humalog U-100 Insulin] 100 unit/mL solution 4 unit subcut TID Qty: 10 3RF Protocol: Insulin Correction Scale Less than or equal to 110 ---- Give (units): 0 111 to 150 Give (units): 0 151 to 200 Give (units): 2 201 to 250 Give (units): 4 251 to 300 Give (units): 6 301 to 350 Give (units): 8 Greater than 350 Give (units): 10 Call MD if Blood Glucose > : 350 Rx Instructions: subcutaneous 15 minutes prior to meal or at the latest at the onset of eating. lorazepam 0.5 mg tablet 0.5 mg PO TID PRN (Reason: anxiety) Qty: 90 1RF (DME) insulin syringe-needle U-100 [BD Insulin Syringe Ultra-Fine] 1 mL 31 gauge x 5/16 syringe See Rx Instructions .ROUTE QID Qty: 200 3RF Rx Instructions: Four times daily gabapentin 400 mg capsule 400 mg PO BID@0900,1500 Qty: 180 1RF simvastatin 20 mg tablet 20 mg PO BEDTIME Qty: 90 1RF bumetanide 2 mg tablet 2 mg PO DAILY 90 Days Qty: 90 0RF (DME) insulin syringe-needle U-100 [BD Insulin Syringe Ultra-Fine] 1 mL 31 gauge x 5/16 syringe MISCELLANEOUS QID metoprolol succinate 50 mg tablet extended release 24 hr 50 mg PO DAILY prazosin 1 mg capsule 1 mg PO BEDTIME clonidine HCl 0.1 mg tablet 0.1 mg PO TID allopurinol 100 mg tablet 100 mg PO DAILY duloxetine 60 mg capsule,delayed release(DR/EC) 60 mg PO DAILY insulin glargine [Lantus Solostar U-100 Insulin] 100 unit/mL (3 mL) insulin pen 60 unit subcut BEDTIME Zepbound 5 mg/0.5 mL pen injector 5 mg subcut WE pantoprazole 20 mg tablet,delayed release (DR/EC) 20 mg PO BEDTIME@1800 trazodone 150 mg tablet 150 - 300 mg PO BEDTIME PRN (Reason: insomnia) risperidone 1 mg tablet 1 mg PO BEDTIME Linzess 290 mcg capsule 290 mcg PO DAILY sertraline 25 mg tablet 75 mg PO DAILY (DME) lancets [FreeStyle Lancets] 28 gauge misc See Rx Instructions .ROUTE QID Qty: 200 3RF Rx Instructions: four times daily (DME) pen needle, diabetic [Comfort EZ Pen [place]] 32 gauge x 5/16 needle See Rx Instructions .Route Qty: 200 3RF Rx Instructions: four times daily (DME) FreeStyle Lite Strips Strip See Rx Instructions .ROUTE BID Qty: 200 3RF Rx Instructions: four times daily (DME) ADULT PULL UP XL See Rx Instructions .Route .MEDSUPPLY Qty: 360 3RF Rx Instructions: 4 per day (DME) Commode bags See Rx Instructions .Route .MEDSUPPLY Qty: 4 3RF Rx Instructions: 4x/day (DME) nitrile gloves See Rx Instructions .Route .MEDSUPPLY Qty: 360 3RF Rx Instructions: 4x/day (DME) Chux See Rx Instructions .Route .MEDSUPPLY Qty: 200 3RF Rx Instructions: 3x/day (DME) pressure relief cushion See Rx Instructions .Route .MEDSUPPLY Qty: 1 0RF Rx Instructions: daily (DME) FreeStyle Lucy 3 Sensor Device See Rx Instructions .Route Qty: 6 3RF Rx Instructions: every 14 days buspirone 30 mg tablet 30 mg PO BID (DME) FreeStyle Lucy 3 [place] [facility] See Rx Instructions .Route Qty: 1 0RF Rx Instructions: As directed (DME) BD Insulin Syringe (half unit) 0.3 mL 31 gauge x 5/16 syringe See Rx Instructions .Route Qty: 400 3RF Rx Instructions: As directed (DME) pen needle, diabetic 32 gauge x 5/32 needle See Rx Instructions .Route Qty: 1200 3RF Rx Instructions: four times daily Discontinued isosorbide mononitrate 30 mg tablet extended release 24 hr 60 mg PO DAILY Qty: 180 3RF Diet: Advance to usual diet Activity on Discharge: As tolerated Stand Alone Forms: Patient Portal Discharge page Print Language: Arabic Discharge Date/Time: 05/11/25 18:25
[2025-05-11 15:07] VITALS: BP 145/64; PULSE 93; RESP 18; TEMP 36.2; O2SAT 92
[2025-05-11 15:20] LABS: Glucose, Whole Blood 161 mg/dL (60-115)
--- NOTE | 2025-05-11 16:57 | P.PNIM_ITS ---
Subjective Subjective Date of Service: 05/14/25 Interval History: diarrhea improving lightheadendss improving Review of Systems Review of Systems: Yes all other systems are reviewed and are negative Physical Exam 2 Vital Signs: Vital Signs: Last Vital Signs Temp 97.1 F 05/11/25 15:07 Pulse 93 05/11/25 15:07 Resp 18 05/11/25 15:07 BP 145/64 H 05/11/25 15:07 Pulse Ox 92 05/11/25 15:07 O2 Del Method Room Air 05/11/25 15:07 O2 Flow Rate 1.5 05/11/25 08:00 BMI result Body Mass Index 49.5 Objective Data Active Medications Buspirone HCl (Buspirone Hcl 10 Mg Tablet) 30 mg PO BID [facility] Last Admin: 05/11/25 09:59 Dose: 30 mg Documented By: LANRE Calcium Carbonate (Calcium Carbonate 750 Mg Tab.Chew) 750 mg PO Q4H PRN PRN Reason: Heartburn Clonidine HCl (Clonidine Hcl 0.1 Mg Tablet) 0.1 mg PO TID [facility]; Protocol Last Admin: 05/11/25 09:59 Dose: 0.1 mg Documented By: LANRE Dextrose (Dextrose 50 % 25 Gm/50 Ml Syringe) 25 gm IVPUSH Q15M PRN; Protocol PRN Reason: per Hypoglycemia Standing Ord. Duloxetine HCl (Duloxetine Hcl 60 Mg Capsule.Dr) 60 mg PO DAILY [facility] Last Admin: 05/11/25 09:59 Dose: 60 mg Documented By: LANRE Gabapentin (Gabapentin 400 Mg Capsule) 400 mg PO BID@0900,1500 [facility] Last Admin: 05/11/25 09:59 Dose: 400 mg Documented By: LANRE Glucose (Glucose Gel 15 Gm Gel..Gram.) 15 gm PO Q15M PRN; Protocol PRN Reason: per Hypoglycemia Standing Ord. Heparin Sodium (Porcine) (Heparin Sodium,Porcine 5,000 Unit/Ml Vial) 5,000 unit SUBCUT Q8H [facility] Last Admin: 05/11/25 09:58 Dose: 5,000 unit Documented By: LANRE Insulin Human Lispro (Insulin Lispro 100 Unit/Ml 3 Ml Vial) 0 unit SUBCUT QIDACHS [facility]; Protocol Last Admin: 05/11/25 11:28 Dose: 2 unit Documented By: LANRE Magnesium Hydroxide (Milk Of Magnesia 30 Ml Oral.Susp) 30 ml PO DAILY PRN PRN Reason: Constipation Melatonin (Melatonin 3 Mg Tablet) 6 mg PO BEDTIME PRN PRN Reason: Insomnia Oxycodone HCl (Oxycodone Hcl Immed Release 5 Mg Tablet) 5 mg PO Q6H PRN PRN Reason: Pain, Severe (Pain Scale 7-10) Prazosin HCl (Prazosin Hcl 1 Mg Capsule) 1 mg PO BEDTIME [facility]; Protocol Last Admin: 05/10/25 21:54 Dose: 1 mg Documented By: LISA Risperidone (Risperidone 1 Mg Tablet) 1 mg PO BEDTIME [facility] Last Admin: 05/10/25 21:54 Dose: 1 mg Documented By: LISA Sertraline HCl (Sertraline Hcl 25 Mg Tablet) 75 mg PO DAILY [facility] Last Admin: 05/11/25 09:59 Dose: 75 mg Documented By: LANRE Sodium Chloride (0.9 % Sodium Chloride Flush 3 Ml Syringe) 3 ml IVFLUSH QSHIFT [facility] Last Admin: 05/11/25 09:59 Dose: 3 ml Documented By: LANRE Trazodone HCl (Trazodone Hcl 50 Mg Tablet) 150 mg PO BEDTIME PRN PRN Reason: Insomnia Last Admin: 05/10/25 21:54 Dose: 150 mg Documented By: LISA Labs 05/11/25 06:10 05/11/25 06:10 Labs: Laboratory Results - last 24 hr 05/10/25 05/10/25 05/11/25 17:55 21:07 06:10 MCV 94.4 MCH 28.5 MCHC 30.1 L RDW 13.8 Plt Count 157 L MPV 8.6 L Absolute Nucleated RBC 0.000 Nucleated RBC % (auto) 0.0 Anion Gap 15 Estim Creat Clear Calc 36.6 Estimated GFR 26 POC Glucose 122 H 145 H Random Glucose 154 H Calcium 8.3 L 05/11/25 05/11/25 05/11/25 07:26 11:23 15:16 MCV MCH MCHC RDW Plt Count MPV Absolute Nucleated RBC Nucleated RBC % (auto) Anion Gap Estim Creat Clear Calc Estimated GFR POC Glucose 155 H 186 H 161 H Random Glucose Calcium Assessment and Plan (1) Diarrhea: Status: Resolved Plan d3 for 74yo F with chronic hypoxia due to COPD/DANIEL/OHS on 2L O2, HFrEF, CKD3, obesity, DM2, mood disorder, and HTN presenting with diahrea + dizziness, admitted for FELICIA FELICIA/CKD3 - improving, continue IV crystalloid, hold bumetanide, recheck BMP tomorrow AM diarrhea - GI panel + Cdiff PCR negative; give prn loperamide orthostasis - continue IV crystalloid, repeat orthostatics DM2 - basal-bolus insulin chronic hypoxia due to COPD/DANIEL/OHS - continue home oxygen 2L + nocturnal CPAP morbid obesity - diet/exercise counseling mood disorder - continue buspirone, clonidine, lorazepam, prazosin, risperidone, trazodone chronic HFrEF - continue Imdur, metoprolol succinate peripheral neuropathy - continue gabapentin gout - continue allopurinol sacral decubitus injury, stage 3 pressure - Wound Care consulted: Bilateral Buttock and Sacrum - Off Load Pressure with Q2 hr turns and use of pillows - Cleanse with PH balance spray or wipes, pat dry. ?Apply thin layer of Triad to wound bed. Do not remove all of paste between applications as this may cause further skin damage.? Cover with foam dressing to aid in off loading and protection from friction. Change every 3 days and PRN. If foam is frequently wet remove and continue with Triad alone. VTE ppx - enoxaparin dispo - PT eval pending In my clinical judgment, the patient requires continued inpatient hospitalization for the following reasons: IV fluid resuscitation Total time managing care of this patient today: 35 minutes. Quality Stroke Does the patient have a stroke diagnosis?: No VTE Prior VTE?: No VTE Risk Level:: Medical - moderate - high VTE Device Contraindication: Treatment Not Indicated VTE Drug Contraindication: N/A - Med Ordered
--- NOTE | 2025-05-11 17:21 | PM.EVENT ---
Event Note Date of Service: 05/11/25 Event Note: Patient requesting leave against medical advice. She was able to demonstrate understanding of her recent for hospitalization and risks of leaving against medical advice without further workup and treatment including Time Spent With Patient Time: Total time managing care of this patient today ____ minutes.
--- NOTE | 2025-05-11 17:37 | PC.NURSE ---
1640 patient getting very upset with both MD and and nurse after MD informed patient that he did not feel it was appropriate for her to be discharged without cardiology consult. Patient became very upset and started crying and yelling. Patient continued to scream at the top of her lungs at both charge nurse and this RN that she was going home regardless of what we told her. MD was notified and covering MD came to bedside to assess situation. Per Dr. Tipton patient is oriented and can make own decisions. Patient was told the risks of leaving AMA and understood. Patient signed AMA paperwork with MD and charge nurse as whiteness. Patient calling ride and both IV and rn cardiac rehab removed.
--- NOTE | 2025-05-11 19:07 | P.PNNP_ITS ---
Subjective Subjective Date of Service: 05/11/25 Interval history: Seen and examined,e vents noted Overall feeling better Physical Exam 2 Vital Signs: Vital Signs: Last Vital Signs Temp 97.1 F 05/11/25 15:07 Pulse 93 05/11/25 15:07 Resp 18 05/11/25 15:07 BP 145/64 H 05/11/25 15:07 Pulse Ox 92 05/11/25 15:07 O2 Del Method Room Air 05/11/25 15:07 O2 Flow Rate 1.5 05/11/25 08:00 BMI result Body Mass Index 49.5 Objective Data Labs 05/11/25 06:10 05/11/25 06:10 Labs: Laboratory Results - last 24 hr 05/10/25 05/11/25 05/11/25 21:07 06:10 07:26 WBC 6.8 RBC 3.76 L Hgb 10.7 L Hct 35.5 L MCV 94.4 MCH 28.5 MCHC 30.1 L RDW 13.8 Plt Count 157 L MPV 8.6 L Absolute Nucleated RBC 0.000 Nucleated RBC % (auto) 0.0 Sodium 144 Potassium 4.7 Chloride 108 Carbon Dioxide 26 Anion Gap 15 BUN 33 H Creatinine 1.94 H Estim Creat Clear Calc 36.6 Estimated GFR 26 POC Glucose 145 H 155 H Random Glucose 154 H Calcium 8.3 L 05/11/25 05/11/25 11:23 15:16 WBC RBC Hgb Hct MCV MCH MCHC RDW Plt Count MPV Absolute Nucleated RBC Nucleated RBC % (auto) Sodium Potassium Chloride Carbon Dioxide Anion Gap BUN Creatinine Estim Creat Clear Calc Estimated GFR POC Glucose 186 H 161 H Random Glucose Calcium Procedures Date of Service Date of Service: 05/11/25 Assessment & Plan Assessment and plan (1) Acute respiratory failure with hypoxia: Status: Acute (2) CHF exacerbation: Status: Acute (3) Acute kidney injury superimposed on CKD: Status: Acute (4) Morbid obesity due to excess calories: Status: Acute Plan FELICIA: most c/w CRSyndrome ( i.e. hemodynamic mediated renal dysfunc with ques of renal congestion vs poor forward flow to kidneys) but other causes being r/o U/S r/o Obs UA bland goes against AGN or AIN Pre-renal--> ischemic ATN a possibility CKD 3: abile renal func; c/w chronic CRSyn and/or underlying DN Resp dysfunc: COPD and/or CHF REC: agree with card consult and card echo, avoid NToxins, may need RH cath to optimize volume/diuretic management and poss need for inotropic interventions; need to consider Cardiomems to help in chronic outpt management Will follow symone with team Time Spent With Patient Time: Total time managing care of this patient today ____ minutes. Progress Note: Quality Stroke Does the patient have a stroke diagnosis?: No
== END 2025-05-11 18:25 | disposition left against medical advice (07) | DRG 422 ==
LOC: HO.ED 21:03 → HO.EDOVER 05-10 06:33 → HO.IMC 05-10 19:15
PROVIDERS: Physician Assistant; Admitting Provider Physician Assistant; Emergency Provider Emergency Medicine; PCP Physician Assistant; Visit Provider Internal Medicine
DX: E86.9 Volume depletion, unspecified (principal); N17.0 Acute kidney failure with tubular necrosis; J96.01 Acute respiratory failure with hypoxia; I13.0 Hypertensive heart and chronic kidney disease with heart failure and stage 1 through stage 4 chronic kidney disease, or unspecified chronic kidney disease; I95.9 Hypotension, unspecified; I42.8 Other cardiomyopathies; I50.22 Chronic systolic (congestive) heart failure; E11.22 Type 2 diabetes mellitus with diabetic chronic kidney disease; E11.42 Type 2 diabetes mellitus with diabetic polyneuropathy; N18.30 Chronic kidney disease, stage 3 unspecified; Z23 Encounter for immunization; J44.9 Chronic obstructive pulmonary disease, unspecified; E66.2 Morbid (severe) obesity with alveolar hypoventilation; Z68.42 Body mass index [BMI] 45.0-49.9, adult; Z71.3 Dietary counseling and surveillance; M10.9 Gout, unspecified; Z79.4 Long term (current) use of insulin; Z79.899 Other long term (current) drug therapy
CPT/HCPCS: 36415; 71046; 76775; 80048; 80053; 81001; 82947; 83690; 83880; 84484; 85025; 85027; 90656; 93005; 93306; 99285; J1644; J1938; Q9957

== ENCOUNTER → 2025-05-09 18:21 | Outpatient (BNV) | payer OTHER, SELFPAY | PROVIDERS: Admitting Provider Physician Assistant; Emergency Provider Emergency Medicine; PCP Physician Assistant; Visit Provider Internal Medicine Cardiovascular Disease | DX: R94.31 Abnormal electrocardiogram [ECG] [EKG] (principal); R07.9 Chest pain, unspecified | CPT/HCPCS: 93010 ==

== ENCOUNTER 2025-05-10 06:30 | Outpatient (BNV) | payer OTHER, SELFPAY | END 2025-05-11 07:00 | PROVIDERS: Admitting Provider Physician Assistant; Emergency Provider Emergency Medicine; PCP Physician Assistant; Visit Provider Internal Medicine Cardiovascular Disease | DX: I50.9 Heart failure, unspecified (principal) | CPT/HCPCS: 93306 ==

== ENCOUNTER 2025-05-10 06:30 | Outpatient (BNV) | payer OTHER, SELFPAY | END 2025-05-10 11:13 | PROVIDERS: Admitting Provider Physician Assistant; Emergency Provider Emergency Medicine; PCP Physician Assistant; Visit Provider Radiology Diagnostic Radiology | DX: N20.0 Calculus of kidney (principal) | CPT/HCPCS: 76775 ==

== ENCOUNTER → 2025-05-10 06:30 | Outpatient (BNV) | payer OTHER, SELFPAY | PROVIDERS: Admitting Provider Physician Assistant; Emergency Provider Emergency Medicine; PCP Physician Assistant; Visit Provider Internal Medicine | DX: J96.01 Acute respiratory failure with hypoxia (principal); I50.9 Heart failure, unspecified; N17.9 Acute kidney failure, unspecified; N18.9 Chronic kidney disease, unspecified; E66.01 Morbid (severe) obesity due to excess calories | CPT/HCPCS: 99223; 99499 ==

== ENCOUNTER 2025-05-16 13:28 | Outpatient (AMB) | payer OTHER, SELFPAY ==
--- OUTSIDE RECORDS SUMMARY | 2025-05-15 11:30 | XMS_ITS | Encounter Summary ---
Author Organization [facility] Address [address] [address] Phone Care Team Providers Care Notching Machine Operator Name Role Phone Celia Horn Primary Care Provider [phone] Reason for Visit * Reason Comments Chronic Kidney Disease Encounter Details Date Type Department Care Team ([facility] st Contact Info) Description 05/15/2025 11:30 AM EDT Office Visit [facility] [address] [address] Yaquelin Bustos ARNP [address] [address] Stage 3a chronic kidney disease (HCC) (Primary Dx); Hypertension; Type 2 diabetes mellitus with diabetic chronic kidney disease, with long-term use of insulin (HCC); Dysuria Social History Tobacco Use Types Packs/Day Years [...] Sign Reading Time Taken Comments Blood Pressure 108/60 05/15/2025 10:44 AM EDT Pulse 85 05/15/2025 10:44 AM EDT Temperature - - Respiratory Rate - - Oxygen Saturation 96% 05/15/2025 10:44 AM EDT Inhaled Oxygen Concentration - - Weight 125 kg (275 lb) 05/15/2025 10:44 AM EDT Height - - Body Mass Index - - documented in this encounter Plan of Treatment Upcoming Encounters Date Type Department Care Team (Late st Contact Info) Description 11/20/2025 2:45 PM EDT Office Visit [facility] the [address] [place] [address] Jesus Gilbert MD [address] [facility] [address] [place] [address] Scheduled Orders Name Type Priority Associated Diagnoses Orde r Schedule Immunofixation electrophoresis Lab Routine Stage 3a chronic kidney disease (HCC) Hypertension Type 2 diabetes mellitus with diabetic chronic kidney disease, with long-term use of insulin (HCC) Expected: 05/15/2025, Expires: 06/15/2026 PTH, intact Lab Routine Stage 3a chronic kidney disease (HCC) Hypertension Type 2 diabetes mellitus with diabetic chronic kidney disease, with long-term use of insulin (HCC) Expected: 05/15/2025, Expires: 06/15/2026 Basic metabolic panel Lab Routine Stage 3a chronic kidney disease (HCC) Hypertension Type 2 diabetes mellitus with diabetic chronic kidney disease, with long-term use of insulin (HCC) Expected: 05/15/2025, Expires: 06/15/2026 Urine Protein / creatinine ratio Lab Routine Stage 3a chronic kidney disease (HCC) Hypertension Type 2 diabetes mellitus with diabetic chronic kidney disease, with long-term use of insulin (HCC) Expected: 05/15/2025, Expires: 06/15/2026 Urine Albumin / Creatinine Ratio Lab Routine Stage 3a chronic kidney disease (HCC) Hypertension Type 2 diabetes mellitus with diabetic chronic kidney disease, with long-term use of insulin (HCC) Expected: 05/15/2025, Expires: 06/15/2026 CBC Lab Routine Stage 3a chronic kidney disease (HCC) Hypertension Type 2 diabetes mellitus with diabetic chronic kidney disease, with long-term use of insulin (HCC) Expected: 05/15/2025, Expires: 06/15/2026 Magnesium Lab Routine Stage 3a chronic kidney disease (HCC) Hypertension Type 2 diabetes mellitus with diabetic chronic kidney disease, with long-term use of insulin (HCC) Expected: 05/15/2025, Expires: 06/15/2026 Hemoglobin A1c Lab Routine Stage 3a chronic kidney disease (HCC) Hypertension Type 2 diabetes mellitus with diabetic chronic kidney disease, with long-term use of insulin (HCC) Expected: 05/15/2025, Expires: 06/15/2026 Ferritin Lab Routine Stage 3a chronic kidney disease (HCC) Hypertension Type 2 diabetes mellitus with diabetic chronic kidney disease, with long-term use of insulin (HCC) Expected: 05/15/2025, Expires: 06/15/2026 Iron Panel (Fe, TIBC, TSAT) Lab Routine Stage 3a chronic kidney disease (HCC) Hypertension Type 2 diabetes mellitus with diabetic chronic kidney disease, with long-term use of insulin (HCC) Expected: 05/15/2025, Expires: 06/15/2026 Vitamin D 25 hydroxy Lab Routine Stage 3a chronic kidney disease (HCC) Hypertension Type 2 diabetes mellitus with diabetic chronic kidney disease, with long-term use of insulin (HCC) Expected: 05/15/2025, Expires: 06/15/2026 Urinalysis with microscopic Lab Routine Dysuria Expected: 05/15/2025, Expires: 06/15/2026 Urine culture Lab Routine Dysuria Expected: 05/15/2025, Expires: 06/15/2026 PTH, intact Lab Routine Stage 3a chronic kidney disease (HCC) Hypertension Type 2 diabetes mellitus with diabetic chronic kidney disease, with long-term use of insulin (HCC) Expected: 10/18/2025, Expires: 12/17/2025 Renal function panel Lab Routine Stage 3a chronic kidney disease (HCC) Hypertension Type 2 diabetes mellitus with diabetic chronic kidney disease, with long-term use of insulin (HCC) Expected: 10/18/2025, Expires: 12/17/2025 Urine Albumin / Creatinine Ratio Lab Routine Stage 3a chronic kidney disease (HCC) Hypertension Type 2 diabetes mellitus with diabetic chronic kidney disease, with long-term use of insulin (HCC) Expected: 10/18/2025, Expires: 12/17/2025 Urine Protein / creatinine ratio Lab Routine Stage 3a chronic kidney disease (HCC) Hypertension Type 2 diabetes mellitus with diabetic chronic kidney disease, with long-term use of insulin (HCC) Expected: 10/18/2025, Expires: 12/17/2025 CBC Lab Routine Stage 3a chronic kidney disease (HCC) Hypertension Type 2 diabetes mellitus with diabetic chronic kidney disease, with long-term use of insulin (HCC) Expected: 10/18/2025, Expires: 12/17/2025 documented as of this encounter Procedures Procedure Name Priority Date/Time Associated Diagnosis Comments RENAL FUNCTION PANEL (EXTERNAL LAB ENTRY) Routine 05/11/2025 documented in this encounter Results * Renal Function Panel (External Lab) (05/11/2025) Glucose 154 mg/dL BUN 33 mg/dL eGFR 26 Sodium 144 mEq/L Potassium 4.7 mEq/L Chloride 108 Carbon Dioxide 26 mmol/L Calcium 8.3 mg/dL Creatinine 1.94 mg/dL Anion Gap 15 Blood 05/11/2025 Historical Provider LAB BLOOD ORDERABLES Ofelia l Result documented in this encounter Visit Diagnoses Diagnosis Stage 3a chronic kidney disease (HCC)- Primary Hypertension Type 2 diabetes mellitus with diabetic chronic kidney disease, with long-term use of insulin (HCC) Dysuria documented in this encounter Care Teams Notching Machine Operator Relationship Specialty Start Date End Date Celia Horn [address] [place] [id number] PCP - General 05/15/25 documented as of this encounter
--- NOTE | 2025-05-16 13:36 | HO.NEPHOV_ITS ---
Vital Signs 05/16/25 13:37 Height 5 ft 2 in Weight 271 lb BMI 49.6 Pulse 94 Pulse Source Pulse Oximeter Pulse Oximetry (%) 93 Oxygen Delivery Method Room Air Intake Visit Reasons: Type 2 diabetes mellitus diabeticnephropathy,lvm Membership Solicitor Required: No Accompanied by: Self / Same As Patient Allergies ibuprofen Allergy (Intermediate, Verified 05/16/25 13:38) vomiting, itching acetaminophen (Tylenol) Allergy (Unknown, Verified 05/16/25 13:38) Unknown codeine Adverse Reaction (Severe, Verified 05/16/25 13:38) Anaphylaxis morphine Adverse Reaction (Intermediate, Verified 05/16/25 13:38) vomiting vancomycin Adverse Reaction (Intermediate, Verified 05/16/25 13:38) Itching Medication List - Last Reconciled 05/16/25 by Manoj Cespedes MD [ADULT PULL UP XL 4 per day NS] allopurinol 100 mg PO DAILY BD Insulin Syringe (half unit) (insulin syr/ndl U100 half dionna) As directed NS blood-glucose meter (FreeStyle Lite Meter kit) As directed checks POC 4 X/day bumetanide 2 mg PO DAILY 90 days buspirone 30 mg PO BID [Chux 3x/day] clonidine HCl 0.1 mg PO TID Comfort EZ Pen Clio (pen needle, diabetic) 4 times daily NS [Commode bags 4x/day NS] duloxetine 60 mg PO DAILY FreeStyle Lancets (lancets) four times daily NS FreeStyle Lucy 3 Selfridge (blood-glucose,portable sawyer,cont) As directed NS FreeStyle Lucy 3 Sensor (blood-glucose sensor) every 14 days NS FreeStyle Lite Strips (blood sugar diagnostic) four times daily NS gabapentin 400 mg PO BID@0900,1500 insulin glargine (Lantus Solostar U-100 Insulin) 60 units subcut BEDTIME insulin lispro (Humalog U-100 Insulin) 4 units See Protocol subcut TID insulin syringe-needle U-100 (BD Insulin Syringe Ultra-Fine) insulin syringe-needle U-100 (BD Insulin Syringe Ultra-Fine) Four times daily isosorbide mononitrate ER 60 mg (2 x 30 mg) PO DAILY linaclotide (Linzess) 290 mcg PO DAILY lorazepam 0.5 mg PO TID PRN metoprolol succinate ER 50 mg PO DAILY [nitrile gloves 4x/day] pantoprazole 20 mg PO BEDTIME@1800 pen needle, diabetic (Comfort EZ Pen Clio) four times daily pen needle, diabetic four times daily prazosin 1 mg PO BEDTIME [pressure relief cushion daily] risperidone 1 mg PO BEDTIME sertraline 75 mg PO DAILY simvastatin 20 mg PO BEDTIME tirzepatide (weight loss) (Zepbound) 5 mg subcut WE trazodone 150 - 300 mg PO BEDTIME PRN HPI Comments Details: Lupis has been referred for the evaluation of CKD. She is well known to me from previous hospitalization. She had recently seen by a bevel operator few days ago and she is extremely unhappy with the service and she has decided to switch service. Lupis is a 64-year-old woman with multiple medical problems including chronic k idney disease with a baseline creatinine of around 2 mg/dL history of longstanding diabetes mellitus and hypertension history of congestive heart failure cardiomyopathy and obesity. She was recently hospitalized for shortness of breath. However she has signed out AMA. She continues to have shortness of breath she is on Lasix with suboptimal response. She denies any chest pain. No nausea or vomiting. No urinary symptoms. [facility] Medical History Mood disorder Panic disorder Diabetic nephropathy Cataracts, bilateral DANIEL (obstructive sleep apnea) COPD (chronic obstructive pulmonary disease) NICM (nonischemic cardiomyopathy) Hypertension Elevated d-dimer FELICIA (acute kidney injury) Abdominal pain Constipation Chronic respiratory failure with hypoxia Stercoral colitis Decubitus ulcer Hypoxia CHF exacerbation MDD (major depressive disorder), recurrent episode, moderate Adjustment disorder with mixed anxiety and depressed mood Cellulitis of right lower extremity Stasis dermatitis of both legs Asthma Hyperglycemia due to diabetes mellitus Congestive heart failure Obesity hypoventilation syndrome CKD (chronic kidney disease) stage 3, GFR 30-59 ml/min Acute on chronic combined systolic and diastolic CHF (congestive heart failure) Morbid obesity Diabetic neuropathy, painful Chronic pain High cholesterol Depression Diabetes Surgical History History of surgery Hx of cholecystectomy Family History Mother HTN (hypertension) Diabetes CAD (coronary artery disease) Father HTN (hypertension) Diabetes CAD (coronary artery disease) Maternal Grandmother CAD (coronary artery disease) Social History Household Members: None Household Members Other:: GRANDSON Housing: Apartment Housing 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:: with 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 services project 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 Do you presently have visiting nurse or other home services: Yes Alcohol intake: current Alcohol intake frequency: holidays/special occasions only Alcohol type: wine Comment: 1:1 Patient Tobacco Use Status: Former Tobacco user Tobacco use type: Cigarette Years Smoked: 38 e-Cigarette/Vaping Use: Never Used Second Hand Smoke Exposure: No Substance Use Type: Former Substance User Advance Directives Date on File: 04/30/23 service: No Current occupational status: disabled Current occupation: rt handed Cognitive needs: Yes (walker, cane) Hearing needs: No Vision needs: Yes (Rx glasses) Physical Exam Vital Signs: Last Vital Signs Pulse 94 05/16/25 13:37 Pulse Ox 93 05/16/25 13:37 Oxygen Delivery Method Room Air 05/16/25 13:37 BMI result Body Mass Index 49.6 Const General: cooperative, alert and awake Neck Neck: Yes supple Resp Auscultation: clear to auscultation bilaterally Cardio Jugular venous distension: no JVD Palpation: no palpable S3 Heart sounds: no rubs GI Palpation (GI): Soft to palpation Auscultation: normal bowel sounds Skin Rashes: no rashes Neuro Motor exam (neuro): no asterixis Extrem General: Yes edema Results Reviewed Results Reviewed: 05/10/2025 Renal ultrasonogram Right kidney: The right kidney measures 11.9 x 4.6 x 4.7 cm. Renal parenchymal echotexture and thickness are normal. There are no masses. There is a 5 mm nonobstructing calculus in the interpolar region. There is no hydronephrosis. Left Kidney: The left kidney measures 11.1 x 5.5 x 4.4 cm. Renal parenchymal echotexture and thickness are normal. There are no masses. There is no hydronephrosis or renal calculi. 5 mm nonobstructing right renal calculus. Otherwise unremarkable renal ultrasound. Nephrology Results: Hgb, (12.0-16.0) 10.7 g/dl L 05/11/25 WBC, (4.8-10.8) 6.8 X10*3/uL 05/11/25 Plt Count, (160-400) 157 X10*3/uL L 05/11/25 Sodium, (135-145) 144 mmol/L 05/11/25 Potassium, (3.3-5.1) 4.7 mmol/L 05/11/25 Chloride, (96-108) 108 mmol/L 05/11/25 Carbon Dioxide, (22-29) 26 mmol/L 05/11/25 BUN, (9-16) 33 mg/dL H 05/11/25 Creatinine, (0.5-1.4) 1.94 mg/dL H 05/11/25 Calcium, (8.4-10.2) 8.3 mg/dL L 05/11/25 Urine Protein, (Neg-Trace) Negative mg/dL 05/10/25 Renal US 05/10/25 Assessment & Plan Assessment & Plan (1) Chronic heart failure with reduced ejection fraction (HFrEF, <= 40%): Code(s): I50.22 - Chronic systolic (congestive) heart failure Category: Medical Plan Middle-aged woman with stage IIIB chronic kidney disease in the setting of longstanding diabetes mellitus and hypertension along with cardiomyopathy. She has sustained acute kidney injury most likely due to hypoperfusion secondary to cardiorenal syndrome. Currently she appears hypervolemic. Anemia multifactorial. Hypertension blood pressure is acceptable. Plan Keep current dose of Lasix. Add metolazone 2.5 mg every other day for 5 doses. I have given return instructions to be given to her nurse. Encouraged her to stay on a low-sodium diet. Try to monitor weights if possible. Limit oral free water intake. Check iron TIBC ferritin. No absolute indication for Epogen. Follow calcium intact PTH and add vitamin-D analogs as indicated. Answered all her questions she returned to the office in the next few weeks. Orders: Orders Basic Metabolic Panel 2 Weeks I50.22 - Chronic systolic (congestive) heart failure, N17.9 - Acute kidney failure, unspecified, N18.9 - Chronic kidney disease, unspecified Referrals Cardiology Referral I50.22 - Chronic systolic (congestive) heart failure Medications: New metolazone 2.5 mg PO Q OTHER DAY 5 tabs 0RF Coding Level of Care Code New Pt Level 4 (26436) Diagnoses Chronic heart failure with reduced ejection fraction (HFrEF, <= 40%) I50.22
[2025-05-16 13:37] VITALS: PULSE 94; O2SAT 93; BMI 49.6
--- OUTSIDE RECORDS SUMMARY | 2025-05-16 17:25 | XMS_ITS | Clinical Summary ---
Author Organization [address] [facility] Address [address] [place] [address] Phone Care Team Providers Care Casting Repairer Name Role Phone Tavo Huber MD Primary Care Provider [phone] Allergies No known active allergies Social History [...] patient's age to complete this topic Insurance [facility] PL[facility] Advance Directives Documents on File Type Date Recorded Patient Brazing Machine Operator Expl anation Health Care Decision (hx) 02/25/2022 [...] (hx) 10/14/2020 AD GARCIA DIRECTIVE Care Teams Casting Repairer Relationship Specialty Start Date End Date Tavo Huber MD [address] [place] [address] Dr Anjelica [place] PCP - General Internal Medicine 10/09/21
--- OUTSIDE RECORDS SUMMARY | 2025-05-16 17:26 | XMS_ITS | Encounter Summary ---
Author Organization [facility] Address [address] [place] [address] Phone Care Team Providers Care Greenhouse Specialist Name Role Phone Tavo Huber MD Primary Care Provider Andi Mejia MD Primary Care Provider [phone] Encounter Details Date Type Department Care Team (Late st Contact Info) Description 10/23/2022 Transcribe Orders [facility] Specimen Processing [address] [place] [address] Andi Mejia MD [address] [facility] [address] [place] [address] [email or web address] Bipolar 1 disorder (Primary Dx) Social History [...] Resul t [facility] [address] [place] [address] * (ABNORMAL) Basic metabolic panel (10/23/2022 6:20 [...] ORDERABLES Final Resul t Performing Organization Address City/State/[facility] Co de Phone Number [address] [address] documented in this encounter Visit Diagnoses Diagnosis Bipolar 1 disorder- Primary documented in this encounter Additional Health Concerns Infection Onset Date Last Indicated Resolved Time CoV-Risk 11/13/2022 11/13/2022 11/24/2022 1:23 AM EDT documented as of this encounter Care Teams Greenhouse Specialist Relationship Specialty Start Date End Date Tavo Huber MD [address] [place] [address] [place] [address] PCP - General Internal Medicine 12/21/20 11/16/22 Andi Mejia MD [address] [place] [address] [place] [address] [email or web address] PCP - General Family Medicine 11/17/22 documented as of this encounter Additional Source Comments The information contained in this document represents components of the legal health record. It is not the complete legal health record.[facility]
--- OUTSIDE RECORDS SUMMARY | 2025-05-16 17:26 | XMS_ITS | Encounter Summary ---
Author Organization [facility] Address [address] [place] [phone] Phone Care Team Providers Care Geologist Name Role Phone Andi Mejia MD Primary Care Provider [phone] Encounter Details Date Type Department Care Team (Late st Contact Info) Description 11/23/2022 Procedure Pass [facility], Ct Scan - [facility] [address] [place] [address] Social History Tobacco Use Types Packs/Day Years [...] 9:30 PM EDT Corrie Gilmore RN * [place] Suicide Severity Rating Scale (Screener/Recent Self-Report) Question [...] documented as of this encounter Care Teams Geologist Relationship Specialty Start Date End Date Andi Mejia MD [email or web address] PCP - General Family Medicine 11/17/22 documented as of this encounter Additional Source Comments The information contained in this document represents components of the legal health record. It is not the complete legal health record.[facility]
--- OUTSIDE RECORDS SUMMARY | 2025-05-16 17:26 | XMS_ITS | Clinical Summary ---
Author Organization [facility] Address [address] [place] [address] Phone Care Team Providers Care Intermodal Dispatcher Name Role Phone Celia Horn Primary Care Provider [phone] Allergies Active Allergy Reactions Criticality Noted Date [...] 01/16/2021 12/17/2022 Type 2 diabetes mellitus 01/16/2021 Encounters Date Type Department Care Team Description 05/15/2025 11:30 AM EDT Office Visit [facility] [address] [place] [phone] Yaquelin Bustos ARNP Stage 3a chronic kidney disease (HCC) (Primary Dx); Hypertension; Type 2 diabetes mellitus with diabetic chronic kidney disease, with long-term use of insulin (HCC); Dysuria from Last 3 Months Immunizations Immunization Administration Dates Next Due Pneumococcal [...] Visit [facility] [address] [place] [address] Jesus Gilbert MD [address] [facility] [address] [place] [phone] Health Maintenance Due Date Last Done Comments [...] FUNCTION PANEL (EXTERNAL LAB ENTRY) Routine 05/11/2025 from Last 3 Months Results * Renal Function Panel (External Lab) (05/11/2025) Glucose 154 mg/dL BUN 33 mg/dL eGFR 26 Sodium 144 mEq/L Potassium 4.7 mEq/L Chloride 108 Carbon Dioxide 26 mmol/L Calcium 8.3 mg/dL Creatinine 1.94 mg/dL Anion Gap 15 Blood 05/11/2025 [facility] Provider LAB BLOOD ORDERABLES Ofelia l Result from Last 3 Months Insurance Medicaid [place] [facility] Medicaid Care Teams Intermodal Dispatcher Relationship Specialty Start Date End Date Celia Horn [address] [place] [address] PCP - General 05/15/25
--- OUTSIDE RECORDS SUMMARY | 2025-05-16 17:26 | XMS_ITS | Encounter Summary ---
Author Organization [facility] Address [address] [place] [address] Phone Care Team Providers Care Desk Interviewer Name Role Phone Andi Mejia MD Primary Care Provider [phone] Encounter Details Date Type Department Care Team (Late st Contact Info) Description 11/23/2022 Procedure Pass [facility], Ct Scan - [facility] [address] [place] [address] Social History Tobacco Use Types Packs/Day Years [...] 9:30 PM EDT Corrie Gilmore RN * [place] Suicide Severity Rating Scale (Screener/Recent Self-Report) Question [...] documented as of this encounter Care Teams Desk Interviewer Relationship Specialty Start Date End Date Andi Mejia MD [email or web address] PCP - General Family Medicine 11/17/22 documented as of this encounter Additional Source Comments The information contained in this document represents components of the legal health record. It is not the complete legal health record.[facility]
--- OUTSIDE RECORDS SUMMARY | 2025-05-16 17:26 | XMS_ITS ---
Author Organization [facility] er Care Team Providers Care Manual Winder Name Role Phone Emy Mar MD Unavailable Unavailable Anitra Mar Unavailable Unavailable Allergies and adverse reactions Code CodeSystem Substance Reaction Severity StartDate Concern Status 161 RXNORM Acetaminophen Unknown 10/12/2021 active 5640 RXNORM Ibuprofen Unknown 10/12/2021 active 7052 RXNORM Morphine Unknown 10/12/2021 active Care Team Name Role Address Phone Organization Dates Emy Mar MD PCP [phone], [place], [place], [facility] (Office): : [facility] 10/12/2021 - 11/16/2021 Anitra Mar [phone], [place], [place], [facility] (Office): : [facility] 10/12/2021 - 11/16/2021 Immunizations Immunization Status Vaccine Details Vaccine Code CodeSystem Date Notes Influenza completed Influenza, adjuvanted, inactivated, quadrivalent, injectable, preservative free 205 CVX created date: 10/14/2021 administere d date: 04/14/2017 PPV 23 completed pneumococcal polysaccharide vaccine, 23 valent 33 CVX created date: 10/14/2021 administere d date: 11/17/2016 Influenza (high dose) cancelled Influenza, high-dose, split virus, trivalent, injectable, preservative free 135 CVX created date: 10/31/2021 consent date: 10/31/2021 Covid-19 Vaccine (Pfizer CVX 208) dose #1 cancelled SARS-COV-2 (COVID-19) vaccine, mRNA, spike protein, LNP, preservative free, 10 mcg/0.2mL dose, indu-sucrose formulation 218 CVX created date: 10/18/2021 consent date: 10/18/2021 Mental Status Section Date Assessment Total Score Description 11/16/2021 CAM 0 No delirium ind icated PHQ-9 00 10/18/2021 CAM 0 No delirium ind icated Insurance Providers Problems Problem # Description Date of onset Resolved Date Code CodeSystem Concern Status 1 HYPERTENSIVE CHRONIC KIDNEY DISEASE WITH STAGE 1 THROUGH STAGE 4 CHRONIC KIDNEY DISEASE, OR UNSPECIFIED CHRONIC KIDNEY DISEASE 10/19/[id number] active 2 SLEEP APNEA, UNSPECIFIED 10/19/[address] active 3 ACUTE AND CHRONIC RESPIRATORY FAILURE, UNSPECIFIED WHETHER WITH HYPOXIA OR HYPERCAPNIA 10/13/[address] active 4 ACUTE ON CHRONIC SYSTOLIC (CONGESTIVE) HEART FAILURE 10/13/[address] active 5 ANXIETY DISORDER, UNSPECIFIED 10/13/[address] active 6 CHRONIC OBSTRUCTIVE PULMONARY DISEASE WITH (ACUTE) EXACERBATION 10/13/[address] active 7 CHRONIC THROMBOEMBOLIC PULMONARY HYPERTENSION 10/13/[address] active 8 DEPRESSION, UNSPECIFIED 10/13/[address] active 9 DIABETES MELLITUS DUE TO UNDERLYING CONDITION WITH DIABETIC NEPHROPATHY 10/13/[address] active 10 ESSENTIAL (PRIMARY) HYPERTENSION 10/13/[address] active 11 GASTRO-ESOPHAGEAL REFLUX DISEASE WITHOUT ESOPHAGITIS 10/13/[address] active 12 GOUT, UNSPECIFIED 10/13/[address] active 13 HYPERLIPIDEMIA, UNSPECIFIED 10/13/[address] active 14 LOCALIZED EDEMA 10/13/[address] active 15 MORBID (SEVERE) OBESITY DUE TO EXCESS CALORIES 10/13/[address] active 16 OBSTRUCTIVE SLEEP APNEA (ADULT) (PEDIATRIC) 10/13/[address] active 17 OTHER ASTHMA 10/13/[address] active 18 RETAINED CHOLELITHIASIS FOLLOWING CHOLECYSTECTOMY 10/13/[address] active 19 UNSPECIFIED ABNORMALITIES OF GAIT AND MOBILITY 10/13/[address] active 20 WEAKNESS 10/13/[address] active Reason for Referral No Reasons for Referral Entered Social History Social History Observation Description Start Date End Date Code Code System Current Smoking Status Tobacco smoking consumption unknown 034536831 SNOMED CT Sex Assigned At Female 1960 [address]01-[address] [facility] Gender Identity Sexual Orientation Vital Signs Code Code System Vitals Name Values and Units Timing Information 2339-[address] [facility] Blood Sugar Bkzrx=293.0 Units=mg/dL 11/16/2021 8462-[address] [facility] Blood Pressure-Diastolic Value=69 Un its=mmHg 11/15/2021 8480-[address] [facility] Blood Pressure-Systolic Pxyyh=786 Un its=mmHg 11/15/2021 8867-[address] [facility] Heart rate Value=79.0 Units=/min 38984-[address] [facility] Pain Level Value=0.0 11/15/2021 9279-[address] [facility] Respiratory Rate Value=19.0 Units=/m in 11/05/2021 8310-[address] [facility] Body Temperature Value=98.1 Units= F 11/05/2021 17973-[address] [facility] O2 % dC Oximetry Value=94.0 Units= % 11/05/2021 44839-[address] [facility] Weight Pntqj=530.0 Units=Lbs 8302-[address] [facility] Height Value=57.0 Units=Inches 10/18/2021
--- OUTSIDE RECORDS SUMMARY | 2025-05-16 17:26 | XMS_ITS | Data Portability ---
Author Organization [facility], Main Office Address [address] [facility] [address], [address] [place] [address] Care Team Providers Care Doctorate Of Chiropractic Name Role Phone SISI WATSON Primary Care Provider [phone] [facility] ([facility]) OTHER Assessment Encounter Date Assessment Date Assessment LastModified by Organization Details LastModified Time 11/17/2022 11/17/2022 11/13/22 wbc 11.9, hgb 9.9, plt 226, na 140, k 4.9, bun 103, creat 3.30, LFTs normal [email or web address] Not available 11/17/2022 13:30:40 11/24/2022 11/24/2022 11/13/22 [...] Recorded Time Chronic kidney disease stage 3A 590078278 Active 2022 Andi Mejia MD [address], [address], [place], [address], [facility] 3 09:24:07 Morbid obesity 919296876 Active 2022 Andi Mejia MD [address], [address], [place], [address], [facility] 3 09:29:42 Chronic combined systolic and diastolic heart failure 6770334748694 00 Active 2022 Andi Mejia MD [address], [address], [place], [address], [facility] 3 09:29:52 Nonischemic congestive cardiomyopa thy 451908457637 Active 2022 Andi Mjeia MD [address], [address], [place], [address], [facility] 3 09:30:08 Anxiety 24085504 Active 2022 Andi Mejia MD [address], [address], [place], [address], [facility] 3 09:30:15 Depressive disorder 93218254 Active 2022 Andi Mejia MD [address], [address], [place], [address], [facility] 3 09:30:19 Asthma 199968022 Active 2022 Andi Mejia MD [address], [address], [place], [address], [facility] 3 09:30:26 Chronic pain 90178392 Active 2022 Andi Mejia MD [address], [address], [place], [address], [facility] 3 09:30:32 Chronic constipatio n 319654827 Active 2022 Andi Mejia MD [address], [address], [place], [address], [facility] 3 09:30:40 Chronic obstructive pulmonary disease 92385925 Active 2022 Andi Mejia MD [address], [address], [place], [address], [facility] 3 09:30:44 Diabetic peripheral neuropathy 465197373 Active 2022 Andi eMjia MD [address], [address], [place], [address], [place] [facility] 3 09:30:56 Diabetes mellitus 95442896 Active 2022 Andi Mejia MD [address], [address], [place], [address], [facility] 3 09:31:01 Mixed hyperlipide matilda 144541108 Active 2022 Andi Mejia MD [address], [address], [place], [address], [facility] 3 09:31:09 Essential hypertensio n 59547999 Active 2022 Andi Mejia MD [address], [place], [address], [facility] 3 09:31:15 Obstructive sleep apnea syndrome 00437031 Active 2022 Andi Mejia MD [address], [address], [place], [address], [facility] 3 09:31:20 Panic disorder 326546160 Active 2022 Andi Mejia MD [address], [address], [place], [address], [facility] 3 09:31:26 Coronary arterioscle rosis 93362564 Active 2022 Andi Mejia MD [address], [address], [place], [address], [facility] 3 09:31:30 Chronic kidney disease stage 4 316640869 Active 2022 Carolina Dennis MD [address], [address], [place], [address], [facility] 3 18:36:56 Acute hyponatremi a 2509541 Active 2022 Carolina Dennsi MD [address] [facility], [address], [place], [address], [facility] 3 18:43:11 Asthenia 55180952 Active 2022 Carolina Dennis MD [address] [facility], [address], [place], [address], [facility] 3 18:43:57 Problem Notes None recorded. Medical Equipment None Reported. Allergies Allergen ID Allergen Name Allergen Category Reaction Reaction Severity Criticality Documentation Date Start Date Code Code System Note Provider Name and Address Organization Details Recorded Time 33319 ibuprofen medicatio n Not available Not available Not available 10/08/2022 5640 RxBlake Mejia MD [address] [facility], [address], [place], [address], [facility] 3 09:16:39 86250 Tylenol medicatio n Not available Not available Not available 10/08/2022 3 RxBlake Mejia MD [address] [facility], [address], [place], [address], [facility] 3 09:16:43 64938 morphine medicatio n Not available Not available Not available 10/08/2022 [id number] Magdaleno Mejia MD [address] [facility], [address], [place], [address], [facility] 3 09:16:48 Medications Name Sig Start Date [...] 97.9 [degF] 124/70 mm[Hg] CHAKA Hawkins [address] [facility], [address], [place], [address], [email or web address] 3 07:57:14 Date Recorded Heart rate Respiratory rate Body temperature Oxygen saturation Oxygen saturation in Arterial blood by Pulse oximetry Provider Name and Address Organization Details Last Updated DateTime 3 74 /min 16 /min 97.8 [degF] 96 % 96 % PEDRO MONAE NP [address] [facility], [address], [place], [address], [email or web address] 3 15:33:19 Date Recorded Body weight Body mass index (BMI) Body height Heart rate Respiratory rate Body temperature Oxygen saturation Oxygen saturation in Arterial blood by Pulse oximetry Systolic And Diastolic Provider Name and Address Organization Details Last Updated DateTime 3 033528. 54 g 44.6 kg/m2 157.48 cm 80 /min 18 /min 97.6 [degF] 96 % 96 % 148/82 mm[Hg] Carolina Dennis MD [address] [facility], [address], [place], [address], [email or web address] 3 18:00:03 Social History Question Answer Notes LastModified by Organizat ion Details LastModified Time Tobacco Smoking Status Former Smoker quit 1999 30+ pack year hx Andi Mejia MD [address] [facility], [address], [place], [address], [email or web address] 10/08/2022 11:59:39 Do You Have An Advance Directive? Yes Information not available 10/08/2022 What Is Your Code Status? Full Code Information not available 10/08/2022 Where Do You Live? Apartment Information not available 11/24/2022 Legal Guardian? No Information not available 11/24/2022 Do You Have A Medical Power Of Cytology Laboratory Manager? Yes Information not available 11/24/2022 What Was [...] Recorded Time pneumococcal polysaccharide PPV23 7 completed [facility] 09/23/2023 15:30:16 pneumococcal polysaccharide PPV23 2 completed [facility] 09/23/2023 15:31:52 Past Encounters Encounter ID Performer Location Encounter Start Date Encounter Closed Date Diagnosis/Indication Diagnosis SNOMED-CT Code Diagnosis ICD10 Code Diagnosis IMO Codes Diagnosis Note [id number] Andi Mejia MD [facility] [address] [place] [address] 10/08/2022 09:16:00 10/13/2022 13:18:32 Acute kidney injury 98246768 N17.8 ARF on CRF stage 3 at baseline however appear to be stage 4improved with IVFmonitor renal functionav oid nephrotoxi c meds as ablenephro consult Chronic ki dney disease stage 3A 150054291 N18.31 carrying dx of crf stage 3 however appear stage 4 Asthenia 28023590 R53.1 severe deconditio ningPT OT eval and treatmonit or need for increased services in community vs need to transition to LTC Acute hyponatremia 13579 02 E87.1 Wm=796 in hospitalre peat bmp and monitor lytes Morbid obesity 564477065 E66.01 dietary to eval Chronic co mbined systolic and diastolic heart failure 2974739564 01204 I50.42 bumex 2 mg qam 1 mg qpmspirono lactone 25 mg bidmonitor respirator y and fluid statusmoni tor renal function with recent arf on crf Nonischemi c congestive cardiomyopathy 5867108757 04 I42.0 added to PMHcontinu e current meds Anxiety 25586933 F41.1 fluoxetine 40 mg qdrisperda l 1 mg bid question dx of bipolarto contact PCP for full dx listpsych to evalmonito r for behaviors Asthma 102518984 J45.99 8 at baselineal buterol MDI prn Depressive disorder 3548 9007 F33.8 see above Chronic pain 04374917 G8 9.29 gabapentin 400 mg tidoxycodo ne 5 mg q 6 prnmonitor for effect Chronic constipation 236 462841 K59.09 bowel protocol Chronic ob structive pulmonary disease 20071815 J41.1 carrying dxadded to PMHmonitor respirator y status Diabetic p eripheral neuropathy 337761279 E11.42 gabapentin 400 mg tidmonitor for effect Diabetes mellitus 281022 09 E11.21 lantus 50 units bidSS insulinmon itor blood glucose and need to titrate Mixed hyperlipidemia 267 447433 E78.2 simvastati n 20 mg qdcontinue d Essential hypertension 50468504 I10 appears to have difficult to control htn current onbumex 2 mg qam 1 mg qpmspirono lactone 25 mg bidmetopro lol 50 mg qdnorvasc 5 mg qdimdur 30 mg qdhydralaz ine 25 mg bidmonitor bp and need to titrate Obstructiv e sleep apnea syndrome 41849685 G47.33 carrying dx added to PMH Panic disorder 692494712 F41.0 see aboveon risperdalp sych to eval Coronary arteriosclerosis 93365472 I25.10 metoprolol 50 mg qdASA 81 mg qdsimvasta tin 20 mg qdcontinue d [id number] AHSAN MCCONNELL NP [facility] on [address] [place] [address] 10/14/2022 11:46:11 10/16/2022 16:00:13 Acute kidney injury 41752200 N17.8 ARF on CRF stage 3 at baseline however appear to be stage 4improved with IVFmonitor renal function - check CMP in am x 1avoid nephrotoxi c meds as able; is on diureticsn ephro consult prn Chronic ki dney disease stage 3A 926198908 N18.31 carrying dx of crf stage 3 however appear stage 4 Asthenia 50669170 R53.1 severe deconditio ningPT OT eval and treatmonit or need for increased services in community vs need to transition to LTC Acute hyponatremia 53695 02 E87.1 La=845 in hospitalCM P x 1 in am Morbid obesity 293880713 E66.01 dietary to evalChange diet from regular to carb control Chronic co mbined systolic and diastolic heart failure 4181041017 38415 I50.42 bumex 2 mg qam 1 mg qpmspirono lactone 25 mg bidmonitor respirator y and fluid statusmoni tor renal function with recent arf on crf - CMP in am Nonischemi c congestive cardiomyopathy 3728369415 04 I42.0 added to PMHcontinu e current meds Anxiety 68563204 F41.1 fluoxetine 40 mg qdrisperda l 1 mg bid question dx of bipolarto contact PCP for full dx list - re-request edpsych to cassie mccain for behaviors Asthma 357258067 J45.99 8 at baselineal buterol MDI prn Depressive disorder 3548 9007 F33.8 see above Chronic pain 29781261 G8 9.29 gabapentin 400 mg tidoxycodo ne 5 mg q 6 prnmonitor for effect Chronic constipation 236 393477 K59.09 Add senna-s 2 tabs dailybowel protocolMo nitor and adjust as needed Chronic ob structive pulmonary disease 25174308 J41.1 carrying dxadded to PMHmonitor respirator y status Diabetic p eripheral neuropathy 075339354 E11.42 gabapentin 400 mg tidmonitor for effect Diabetes mellitus 292082 09 E11.21 lantus 50 units bidSS insulinmon itor blood glucose and need to [id number] x 1 in am Mixed hyperlipidemia 267 738011 E78.2 simvastati n 20 mg qdCMP, lipids x 1 in amcontinue d Essential hypertension 72611857 I10 appears to have difficult to control htn current onbumex 2 mg qam 1 mg qpmspirono lactone 25 mg bidmetopro lol 50 mg qdnorvasc 5 mg qdimdur 30 mg qdhydralaz ine 25 mg bidmonitor bp and need to titrate Obstructiv e sleep apnea syndrome 99396875 G47.33 carrying dx added to H Panic disorder 088912865 F41.0 see aboveon risperdalp sych to eval Coronary arteriosclerosis 57307907 I25.10 metoprolol 50 mg qdASA 81 mg qdsimvasta tin 20 mg qdcontinue d [id number] Andi Mejia MD [facility] [address] [place] [address] 10/22/2022 15:37:47 10/24/2022 12:17:55 Chronic kidney disease stage 3A 239528236 N18.31 carrying dx of crf stage 3 however appear stage 4monitor renal functionla bs ordered for tomorrow then q tuesdaysav oid nephrotoxi c meds as ablerefer to nephrowill attempt voiding trial in am with bladder scan q shift and straight cath if > 300cc Asthenia 25090132 R53.1 improving with therapynow able to ambulate up to 100 feet with walker with contact guardmonit or need for increased services in community vs need to transition to LTC Acute hyponatremia 06506 02 E87.1 Yb=717 [facility] bmp and monitor lytesorder ed for tomorrow Chronic co mbined systolic and diastolic heart failure 4153634877 86349 I50.42 bumex 2 mg qam 1 mg qpmspirono lactone 25 mg bidmonitor respirator y and fluid statusmoni tor renal function with recent arf on crf Essential hypertension 19692513 I10 bumex 2 mg qam 1 mg qpmspirono lactone 25 mg bidmetopro lol 50 mg qdnorvasc 5 mg qdimdur 30 mg qdhydralaz ine 25 mg bidmonitor bp and need to titrate [id number] CHAKA Hawkins [facility] on [address] [place] [address] 10/27/2022 11:28:29 10/29/2022 10:44:01 Acute constipation 106917818 K59.09 xray of abdomen for unknown amount [...] d Chronic ki dney disease stage 3A 683287856 N18.31 bun/creat remains elevated, though lab results as above slightly better on 10/23/22avoi d nephrotoxi c meds as ablerefer to nephro - will notify x 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 control equipment repairer Acute hyponatremia 02990 02 E87.1 Na 139 on 10/23/22labs weekly on Tuesdays Chronic co mbined systolic and diastolic heart failure 5183649462 83446 I50.42 compensate dbumex 2 mg q am, 1 mg q pmspironol actone 25 mg bidmonitor fluid statusmoni tor renal function as above Essential hypertension 59521820 I10 ortho BPs bid x 3 dayswill dc hydralazin e 25 mg bid nowbumex 2 mg q am, 1 mg q pmspironol actone 25 mg bidmetopro lol 50 mg qdnorvasc 5 mg qdimdur 30 mg qdmonitor bp and need to titrate [id number] Andi Mejia MD [facility] on [address] [place] [address] 10/28/2022 12:36:51 10/30/2022 15:40:26 Panic disorder 444128187 F41.0 appears to be experienci ng panic attackvita l stablestar t ativan 0.5 mg q 4 may repeat in 30 min for effectscri pt and e kit script writtento ED for acute decompensa tionof note labs were ordered for today however not drawn [id number] Andi Mejia MD [facility] on [address] [place] [address] 10/31/2022 11:44:27 11/03/2022 16:09:35 Orthostatic hypotension 25668257 I95.1 with therapy stating bp dropped to 80's/40's when standing Essential hypertension 15155658 I10 see abovebumex 2 mg qam 1 mg qpmspirono lactone 25 mg bidmetopro lol 50 mg qd(norvasc 5 mg qd now discontinu ed)imdur 30 mg qdhydralaz ine 25 mg bidmonitor bp and need to titrate Pain of le ft shoulder joint 3244462593 0747210 M25.512 probable underlying OAx ray orderedawa it results Panic disorder 914526128 F41.0 patient now much improved and back to baselinemo nitor need to titrate ativan [id number] EPIFANIO CHEN [facility] on [address] [place] [address] 11/13/2022 13:45:01 11/18/2022 16:00:29 Essential hypertension 75289764 I10 continue bumex 2 mg qam 1 mg qpmspirono lactone 25 mg bidmetopro lol 50 mg qdimdur 30 mg qdhydralaz ine 25 mg bidmonitor bp and need to titrate Chest pain 11152432 R07. 9 see HPIno changes to plan of care despite elevated D dimer and tropnot felt to be pleuriticO rdered prn nitro for chest pain Chronic ki dney disease stage 3A 895992503 N18.31 likely moving to end stage with creat of 103 and bun 3.30encour age PO fluidsavoi d nephrotoxi c meds Anxiety 71016574 F41.1 ativan 0.5 mg q 4 hours PRNcontinu e [id number] CHAKA Hawkins [facility] on [address] [place] [address] 11/17/2022 07:53:39 11/19/2022 11:29:11 Chest pain 53508039 R07.9 no chest pain while in ED last night and EKG reassuring no changes to plan of care despite elevated D dimer and tropnot felt to be pleuriticp rn nitro available for chest pain Essential hypertension 54883813 I10 bp normalbume x 2 mg q am, 1 mg q pmspironol actone 25 mg bidmetopro lol 50 mg qdimdur 30 mg qdmonitor bp and adjust meds prn Chronic ki dney disease stage 3A 424715764 N18.31 likely moving to end stage with creat of 103 and bun 3.30encour age PO fluidsavoi d nephrotoxi c medsmonito r renal functionre jerry to nephro if pt and family agree Pain of le ft shoulder joint 3881075612 6974649 M25.512 is chronicno fracture on xray in ED though does have osteophyte s and joint space narrowingc ontinue tizanidine 4 mg qhs 20790220 [facility]AE [facility] [address] [place] [address] 11/18/2022 14:37:50 11/20/2022 14:56:24 Chronic combined systolic and diastolic heart failure 3152230574 08092 I50.42 compensate d bumex 2 mg q am, 1 mg q pm spironolac tone 25 mg bid monitor fluid status monitor renal function Anxiety 74649427 F41.1 ativan 0.5 mg q 4 hours PRNpsych prn [id number] Carolina Dennis MD [facility] on [address] [place] [address] 11/24/2022 17:49:54 11/28/2022 12:00:50 Chronic combined systolic and diastolic heart failure 0265499112 71576 I50.42 Appears euvolemic. Continue metoprolol 50 mg qd, bumex 2 mg q am and 1 mg q pm and spironolac tone 25 mg BIDMay need to decrease diuretics depending on renal functionMo nitor resp. status, fluid status, wts and labs. Anxiety 06277599 F41.1 Continue fluoxetine 30 mg qd and lorazepam 0.5 mg q 4 hrs prn.Monito r mood.Psych following. Essential hypertension 43437212 I10 Last check borderline , but otherwise good.Katherin nue bumex 2 mg q am and 1 mg q pm, spironolac tone 25 mg BID, metoprolol 50 mg qd, and imdur 30 mg qd.BP not being checked regularly, will order for M&F.Monito r BP and labs. Pain of le ft shoulder joint 2692610305 8768621 M25.512 Chronic pain with evidence of moderately severe OA per xray.With allergies to APAP, ibuprofen and morphine.W ill continue oxycodone 5 mg q 6 hrs prn.Will use ice, heat and PT and consider referral for steroid injection. Orthostati c hypotension 14845630 I95.1 Happened one time with rehab.No further episodes.M onitor. Acute constipation 9006 K59.09 Improved on increased bowel regimen.Co ntinue bowel meds as ordered.Mo nitor bowel function. Acute hyponatremia 48826 02 E87.1 No labs since 11/13, will reorder weekly labs. Asthenia 96271617 R53.1 Remains deconditio sissy.Contin ues to need PT/OT for strengthen ing, balance, gait training, safety and function.C ontinue fall precaution s.Monitor for safety.Mon itor for needs in terms of outpt services versus LTC. Morbid obesity 703536871 E66.01 Continue to encourage healthy eating.Mon itor. Asthma 966225779 J45.99 8 As above. Depressive disorder 3548 9007 F33.8 see above Chronic pain 70979078 G8 9.29 With renal failure rec for gabapentin is qd.Will change to gabapentin 600 mg qd and continue tizanidine 4 mg qhs, and oxycodone 5 mg q 6 prnMonitor sxs Chronic ob structive pulmonary disease 54753485 J41.1 Combined obstructiv e and restrictiv e disease per PFTS in past.Katherin nue Flovent 110 mcg 2 puffs BID, and albuterol HFA 2 puffs q 4 hrs prn.Monito r resp status. Diabetic p eripheral neuropathy 857645111 E11.42 As above Diabetes mellitus 458837 09 E11.21 Sugars in good control since here. HgA1C was 8.5 in 3Cont inue lantus 50U BID and SSI.Monito r fingerstic ks TID and HgA1C q 3 months. Mixed hyperlipidemia 267 329828 E78.2 Continue simvastati n 20 mg qdMonitor labs yearly Obstructiv e sleep apnea syndrome 55117391 G47.33 Not on CPAP.Consi jo-ann sleep study. Coronary arteriosclerosis 50538784 I25.10 No recent sxs (recent chest pain not thought to be cardiac.)C ontinue meds as above.F/U with cardio prn. Chronic ki dney disease stage 4 647927935 N18.4 No labs since 11/13.With severely elevated BUN.Will order labs for tomorrow.N eeds renal consult.Wi ll be real balancing act with management of CHF and CKD. [id number] Andi Mejia MD [facility] on [address] [place] [address] 11/26/2022 14:50:28 11/28/2022 12:50:15 Acute kidney injury 44648057 N17.8 ARF on CRF stage 3 at baseline however appear to be stage 4improved with IVFmonitor renal functionav oid nephrotoxi c meds as ablenephro consult Chronic ki dney disease stage 3A 544350248 N18.4 see HPImonitor renal function on bumex and spironolac tone for CHFrepeat bmp at f/u with pcp Asthenia 01943525 R53.1 will need 24 hour supervisio n now in place in community Chronic co mbined systolic and diastolic heart failure 1227162369 69080 I50.42 bumex 2 mg qam 1 mg qpmspirono lactone 25 mg bidmonitor respirator y and fluid statusmoni tor renal function with recent arf on crf Coronary arteriosclerosis 45141235 I25.10 metoprolol 50 mg qdASA 81 mg qdsimvasta tin 20 mg qdcontinue d Health Concerns Section Related Observation LastModified by Organization Detai ls LastModified Time None Recorded Concern Status LastModified by Organization Details LastModified Time None Recorded Advance Directives Directive Y: Payers Insurance Date Sequence Insurance Name Policy Number Policy Drake Covered Member ID Drake Member ID Guarantor Name 12/25/2023 1 [place] Lupisderrick Ana [id number] Lupis Mueller Notes Date Note Type Note [...] yesterday. She appears very anxious. EPIFANIO [address] [facility], [address], [place], [address], [email or web address] 11/13/2022 14:07:45 3 text/html pt seen today for acute telemedicine visit. last night pt called 911 and sent herself out to [facility] stating per nurse that she wasn't [...] to SNF for rehab. CHAKA Hawkins [address] [facility], [address], [place], [address], [email or web address] 11/17/2022 13:34:21 3 text/html ROS as noted in the HPI seen today for acute rounding visit, CAOx3 in the day room in her wheelchair, she is weepy saying my legs don't work anymore , chatted withher for a few minutes and she calmed, lungs clear, ate well at lunch PEDRO MONAE NP [address] [facility], [address], [place], [address], [facility] 11/19/2022 10:31:14 3 text/html This is a 62 yo woman who I am seeing today for a routine MD 60 day reeval rounding visit. She was admitted here on 10/03 after spending several days at the [facility] awaiting placement. She had been seen at the [facility] several times in the month prior. [...] since she was admitted to this facility. MANAGEMENT INSTRUCTOR concurs and [facility] records show this also. pt is eating 75-100% of all her meals. currently on senna 2 qhs and colace daily. pt is making progress with rehab, walking up to 165 feet. ghotra cath recently removed and pt is voiding normally. Carolina Dennis MD [address] [facility], [address], [place], [address], [facility] 11/24/2022 20:21:29 3 text/html Patient is a [...] home. 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 Discussed with SW. Of note labs were ordered yesterday, called labs for result with significant improvement in bun/cre Andi Mejia MD [address] [place] [address], [address], [place], [place], [address], [email or web address] 11/26/2022 14:57:47 OBGyn Episode No OBEpisode recorded.
== END 2025-05-16 14:37 | disposition home or self-care (01) ==
LOC: HO.HKA 13:29
PROVIDERS: PCP Physician Assistant; Visit Provider Internal Medicine Hypertension Specialist
DX: I50.22 Chronic systolic (congestive) heart failure (principal)
CPT/HCPCS: 99204

== ENCOUNTER → 2025-05-16 13:28 | Outpatient (BNVA) | payer OTHER, SELFPAY | PROVIDERS: PCP Physician Assistant; Visit Provider Internal Medicine Hypertension Specialist | DX: E11.22 Type 2 diabetes mellitus with diabetic chronic kidney disease (principal); I13.0 Hypertensive heart and chronic kidney disease with heart failure and stage 1 through stage 4 chronic kidney disease, or unspecified chronic kidney disease; N18.32 Chronic kidney disease, stage 3b; I50.22 Chronic systolic (congestive) heart failure; N17.9 Acute kidney failure, unspecified; Z79.4 Long term (current) use of insulin; Z79.899 Other long term (current) drug therapy | CPT/HCPCS: 99202 ==

== ENCOUNTER 2025-05-30 11:12 | Outpatient (REF) | payer OTHER, SELFPAY ==
--- NOTE | ~2025-05-30 | XR_ITS ---
EXAMINATION: XR KNEE, LEFT CLINICAL INFORMATION: M25.569 - Pain in unspecified knee COMPARISON: April 25, 2025 TECHNIQUE: AP lateral and sunrise views of the left knee. FINDINGS: Joint space narrowing involving the medial compartment. No acute cortical disruption or malalignment. Exostosis in the anterior superior patella/quadriceps tendon insertion. No lytic or blastic lesions. No suprapatellar bursa joint effusion. Vascular calcifications. XR/XR knee LT 3V IMPRESSION: Medial compartment osteoarthrosis/osteoarthritis, mild. Quadriceps tendon enthesopathy. Atherosclerosis disease, peripheral.. Electronically signed by: Dno Hays MD 05/30/2025 12:06 PM DAIEL
--- NOTE | ~2025-05-30 | XR_ITS ---
EXAMINATION: XR KNEE, RIGHT CLINICAL INFORMATION: M25.569 - Pain in unspecified knee COMPARISON: April 25, 2025. TECHNIQUE: AP lateral and sunrise view of the right knee. FINDINGS: Joint space narrowing involving mostly the medial compartment with sclerosis along the articular surface medial tibial plateau. No acute cortical disruption or malalignment. No suprapatellar bursa joint effusion. No lytic or blastic lesions. Small exostosis at the anterior superior patellar/quadriceps tendon insertion. Vascular calcifications. XR/XR knee RT 3V IMPRESSION: Medial compartment osteoarthrosis/osteoarthritis, moderate. Atherosclerosis disease, peripheral. Enthesopathy, quadriceps tendon. Electronically signed by: Don Hays MD 05/30/2025 12:09 PM ADI[facility]
[2025-05-30 12:28] LABS: Anion Gap 14 (12-20); Blood Urea Nitrogen 21 mg/dL (9-16); Calcium 8.8 mg/dL (8.4-10.2); Carbon Dioxide 27 mmol/L (22-29); Chloride 106 mmol/L (96-108); Estimated Glomerular Filt Rate 40; Potassium 4.9 mmol/L (3.3-5.1); Sodium 142 mmol/L (135-145)
--- OUTSIDE RECORDS SUMMARY | 2025-05-30 13:21 | XMS_ITS | Clinical Summary ---
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
--- OUTSIDE RECORDS SUMMARY | 2025-05-30 13:21 | XMS_ITS | Encounter Summary ---
Author Organization [facility] Address [address] [place] [id number] Phone Care Team Providers Care Tech Intern Name Role Phone Andi Mejia MD Primary Care Provider [phone] Encounter Details Date Type Department Care Team (Late st Contact Info) Description 11/23/2022 Procedure Pass [facility], Ct Scan - [facility] [address] [place] [address] Social History Tobacco Use Types Packs/Day Years [...] 9:30 PM EDT Corrie Gilmore RN * [place] Suicide Severity Rating Scale (Screener/Recent Self-Report) Question [...] documented as of this encounter Care Teams Tech Intern Relationship Specialty Start Date End Date Andi Mejia MD [email or web address] PCP - General Family Medicine 11/17/22 documented as of this encounter Additional Source Comments The information contained in this document represents components of the legal health record. It is not the complete legal health record.[facility]
--- OUTSIDE RECORDS SUMMARY | 2025-05-30 13:21 | XMS_ITS | Encounter Summary ---
Author Organization [facility] Address [address] [place] [phone] Phone Care Team Providers Care Geophysical Party Chief Name Role Phone Andi Mejia MD Primary Care Provider [phone] Encounter Details Date Type Department Care Team (Late st Contact Info) Description 11/23/2022 Procedure Pass [facility], Ct Scan - [facility] [address] [place] [address] Social History Tobacco Use Types Packs/Day Years [...] 9:30 PM EDT Corrie Gilmore RN * [place] Suicide Severity Rating Scale (Screener/Recent Self-Report) Question [...] documented as of this encounter Care Teams Geophysical Party Chief Relationship Specialty Start Date End Date Andi Mejia MD [email or web address] PCP - General Family Medicine 11/17/22 documented as of this encounter Additional Source Comments The information contained in this document represents components of the legal health record. It is not the complete legal health record.[facility]
--- OUTSIDE RECORDS SUMMARY | 2025-05-30 13:21 | XMS_ITS | Data Portability ---
Author Organization [facility], Main Office Address [address] [place] [address] Care Team Providers Care Lead Massage Therapist Name Role Phone SISI WATSON Primary Care Provider [phone] [facility] ([facility]) OTHER Assessment Encounter Date Assessment Date Assessment [...] Recorded Time Chronic kidney disease stage 3A 389366360 Active 2022 Andi Mejia MD [address], [address], [place], [address], [facility] 3 09:24:07 Morbid obesity 530570829 Active 2022 Andi Mejia MD [address], [address], [place], [address], [facility] 3 09:29:42 Chronic combined systolic and diastolic heart failure 3455266935266 00 Active 2022 Andi Mejia MD [address], [address], [place], [address], [facility] 3 09:29:52 Nonischemic congestive cardiomyopa thy 151461208664 Active 2022 Andi Mejia MD [address], [address], [place], [address], [facility] 3 09:30:08 Anxiety 74441932 Active 2022 Andi Mejia MD [address], [address], [place], [address], [facility] 3 09:30:15 Depressive disorder 88789206 Active 2022 Andi Mejia MD [address], [address], [place], [address], [facility] 3 09:30:19 Asthma 747948183 Active 2022 Andi Mejia MD [address], [address], [place], [address], [facility] 3 09:30:26 Chronic pain 44006505 Active 2022 Andi Mejia MD [address], [address], [place], [address], [facility] 3 09:30:32 Chronic constipatio n 346548796 Active 2022 Andi Mejia MD [address], [address], [place], [address], [facility] 3 09:30:40 Chronic obstructive pulmonary disease 73929918 Active 2022 Andi Mejia MD [address], [address], [place], [address], [facility] 3 09:30:44 Diabetic peripheral neuropathy 727712977 Active 2022 Andi Mejia MD [address], [address], [place], [address], [place] [facility] 3 09:30:56 Diabetes mellitus 65595859 Active 2022 Andi Mejia MD [address], [address], [place], [address], [facility] 3 09:31:01 Mixed hyperlipide matilda 711935983 Active 2022 Andi Mejia MD [address], [address], [place], [address], [facility] 3 09:31:09 Essential hypertensio n 44539856 Active 2022 Andi Mejia MD [address], [address], [place], [address], [facility] 3 09:31:15 Obstructive sleep apnea syndrome 24658831 Active 2022 Andi Mejia MD [address], [address], [place], [address], [facility] 3 09:31:20 Panic disorder 528001178 Active 2022 Andi Mejia MD [address], [address], [place], [address], [facility] 3 09:31:26 Coronary arterioscle rosis 15546114 Active 2022 Andi Mejia MD [address], [address], [place], [address], [facility] 3 09:31:30 Chronic kidney disease stage 4 287523140 Active 2022 Carolina Dennis MD [address], [address], [place], [address], [facility] 3 18:36:56 Acute hyponatremi a 8706274 Active 2022 Carolina Dennis MD [address] [facility], [address], [place], [address], [facility] 3 18:43:11 Asthenia 14323666 Active 2022 Carolina Dennis MD [address] [facility] [address], [address], [place], [address], [facility] 3 18:43:57 Problem Notes None recorded. Medical Equipment None Reported. Allergies Allergen ID Allergen Name Allergen Category Reaction Reaction Severity Criticality Documentation Date Start Date Code Code System Note Provider Name and Address Organization Details Recorded Time 91982 ibuprofen medicatio n Not available Not available Not available 10/08/2022 5640 RxBlake Mejia MD [address] [facility], [address], [place], [address], [facility] 3 09:16:39 55938 Tylenol medicatio n Not available Not available Not available 10/08/2022 3 RxBlake Mejia MD [address] [facility], [address], [place], [address], [facility] 3 09:16:43 66863 morphine medicatio n Not available Not available Not available 10/08/2022 [id number] Magdaleno Mejia MD [address] [facility], [address], [place], [address], [facility] 3 09:16:48 Medications Name Sig Start Date [...] 97.9 [degF] 124/70 mm[Hg] CHAKA Hawkins [address] [facility], [address], [place], [address], [facility] 3 07:57:14 Date Recorded Heart rate Respiratory rate Body temperature Oxygen saturation Oxygen saturation in Arterial blood by Pulse oximetry Provider Name and Address Organization Details Last Updated DateTime 3 74 /min 16 /min 97.8 [degF] 96 % 96 % PEDRO MONAE NP [address] [facility], [address], [place], [address], [facility] 3 15:33:19 Date Recorded Body weight Body mass index (BMI) Body height Heart rate Respiratory rate Body temperature Oxygen saturation Oxygen saturation in Arterial blood by Pulse oximetry Systolic And Diastolic Provider Name and Address Organization Details Last Updated DateTime 3 016527. 54 g 44.6 kg/m2 157.48 cm 80 /min 18 /min 97.6 [degF] 96 % 96 % 148/82 mm[Hg] Carolina Dennis MD [address] [facility], [address], [place], [address], [facility] 3 18:00:03 Social History Question Answer Notes LastModified by Organizat ion Details LastModified Time Tobacco Smoking Status Former Smoker quit 1999 30+ pack year hx Andi Mejia MD [address] [facility], [address], [place], [address], [facility] 10/08/2022 11:59:39 Do You Have An Advance Directive? Yes Information not available 10/08/2022 What Is Your Code Status? Full Code Information not available 10/08/2022 Where Do You Live? Apartment Information not available 11/24/2022 Legal Guardian? No Information not available 11/24/2022 Do You Have A Medical Power Of Shuttle Car Operator? Yes Information not available 11/24/2022 What [...] Recorded Time pneumococcal polysaccharide PPV23 7 completed [facility] 09/23/2023 15:30:16 pneumococcal polysaccharide PPV23 2 completed [facility] 09/23/2023 15:31:52 Past Encounters Encounter ID Performer Location Encounter Start Date Encounter Closed Date Diagnosis/Indication Diagnosis SNOMED-CT Code Diagnosis ICD10 Code Diagnosis IMO Codes Diagnosis Note [id number] Andi Mejia MD [facility] on [address] [place] [address] 10/08/2022 09:16:00 10/13/2022 13:18:32 Acute kidney injury 51196406 N17.8 ARF on CRF stage 3 at baseline however appear to be stage 4improved with IVFmonitor renal functionav oid nephrotoxi c meds as ablenephro consult Chronic ki dney disease stage 3A 243111146 N18.31 carrying dx of crf stage 3 however appear stage 4 Asthenia 39409372 R53.1 severe deconditio ningPT OT eval and treatmonit or need for increased services in community vs need to transition to LTC Acute hyponatremia 95790 02 E87.1 Nt=591 in hospitalre peat bmp and monitor lytes Morbid obesity 139911014 E66.01 dietary to eval Chronic co mbined systolic and diastolic heart failure 6889605321 31830 I50.42 bumex 2 mg qam 1 mg qpmspirono lactone 25 mg bidmonitor respirator y and fluid statusmoni tor renal function with recent arf on crf Nonischemi c congestive cardiomyopathy 6640664292 04 I42.0 added to PMHcontinu e current meds Anxiety 46779171 F41.1 fluoxetine 40 mg qdrisperda l 1 mg bid question dx of bipolarto contact PCP for full dx listpsych to evalmonito r for behaviors Asthma 425120570 J45.99 8 at baselineal buterol MDI prn Depressive disorder 3548 9007 F33.8 see above Chronic pain 14028224 G8 9.29 gabapentin 400 mg tidoxycodo ne 5 mg q 6 prnmonitor for effect Chronic constipation 236 530741 K59.09 bowel protocol Chronic ob structive pulmonary disease 98525382 J41.1 carrying dxadded to PMHmonitor respirator y status Diabetic p eripheral neuropathy 978237616 E11.42 gabapentin 400 mg tidmonitor for effect Diabetes mellitus 483975 09 E11.21 lantus 50 units bidSS insulinmon itor blood glucose and need to titrate Mixed hyperlipidemia 267 613513 E78.2 simvastati n 20 mg qdcontinue d Essential hypertension 23265274 I10 appears to have difficult to control htn current onbumex 2 mg qam 1 mg qpmspirono lactone 25 mg bidmetopro lol 50 mg qdnorvasc 5 mg qdimdur 30 mg qdhydralaz ine 25 mg bidmonitor bp and need to titrate Obstructiv e sleep apnea syndrome 04915009 G47.33 carrying dx added to PMH Panic disorder 787610139 F41.0 see aboveon risperdalp sych to eval Coronary arteriosclerosis 44254076 I25.10 metoprolol 50 mg qdASA 81 mg qdsimvasta tin 20 mg qdcontinue d [id number] AHSAN MCCONNELL NP [facility] on [address] [place] [address] 10/14/2022 11:46:11 10/16/2022 16:00:13 Acute kidney injury 05454938 N17.8 ARF on CRF stage 3 at baseline however appear to be stage 4improved with IVFmonitor renal function - check CMP in am x 1avoid nephrotoxi c meds as able; is on diureticsn ephro consult prn Chronic ki dney disease stage 3A 166459779 N18.31 carrying dx of crf stage 3 however appear stage 4 Asthenia 36505667 R53.1 severe deconditio ningPT OT eval and treatmonit or need for increased services in community vs need to transition to LTC Acute hyponatremia 83507 02 E87.1 Sg=023 in hospitalCM P x 1 in am Morbid obesity 133412617 E66.01 dietary to evalChange diet from regular to carb control Chronic co mbined systolic and diastolic heart failure 1626326091 82718 I50.42 bumex 2 mg qam 1 mg qpmspirono lactone 25 mg bidmonitor respirator y and fluid statusmoni tor renal function with recent arf on crf - CMP in am Nonischemi c congestive cardiomyopathy 8152218532 04 I42.0 added to PMHcontinu e current meds Anxiety 77194849 F41.1 fluoxetine 40 mg qdrisperda l 1 mg bid question dx of bipolarto contact PCP for full dx list - re-request edpsych to cassie mccain for behaviors Asthma 914753849 J45.99 8 at baselineal buterol MDI prn Depressive disorder 3548 9007 F33.8 see above Chronic pain 44200047 G8 9.29 gabapentin 400 mg tidoxycodo ne 5 mg q 6 prnmonitor for effect Chronic constipation 236 593407 K59.09 Add senna-s 2 tabs dailybowel protocolMo nitor and adjust as needed Chronic ob structive pulmonary disease 42799346 J41.1 carrying dxadded to PMHmonitor respirator y status Diabetic p eripheral neuropathy 606663027 E11.42 gabapentin 400 mg tidmonitor for effect Diabetes mellitus 343982 09 E11.21 lantus 50 units bidSS insulinmon itor blood glucose and need to regjwlqD0Z x 1 in am Mixed hyperlipidemia 267 213593 E78.2 simvastati n 20 mg qdCMP, lipids x 1 in amcontinue d Essential hypertension 32992019 I10 appears to have difficult to control htn current onbumex 2 mg qam 1 mg qpmspirono lactone 25 mg bidmetopro lol 50 mg qdnorvasc 5 mg qdimdur 30 mg qdhydralaz ine 25 mg bidmonitor bp and need to titrate Obstructiv e sleep apnea syndrome 81115030 G47.33 carrying dx added to H Panic disorder 895755413 F41.0 see aboveon risperdalp sych to eval Coronary arteriosclerosis 52647493 I25.10 metoprolol 50 mg qdASA 81 mg qdsimvasta tin 20 mg qdcontinue d [id number] Andi Mejia MD [facility] on [address] [place] [address] 10/22/2022 15:37:47 10/24/2022 12:17:55 Chronic kidney disease stage 3A 973849935 N18.31 carrying dx of crf stage 3 however appear stage 4monitor renal functionla bs ordered for tomorrow then q tuesdaysav oid nephrotoxi c meds as ablerefer to nephrowill attempt voiding trial in am with bladder scan q shift and straight cath if > 300cc Asthenia 53510553 R53.1 improving with therapynow able to ambulate up to 100 feet with walker with contact guardmonit or need for increased services in community vs need to transition to LTC Acute hyponatremia 04010 02 E87.1 Iu=529 in [facility] bmp and monitor lytesorder ed for tomorrow Chronic co mbined systolic and diastolic heart failure 1330843582 91263 I50.42 bumex 2 mg qam 1 mg qpmspirono lactone 25 mg bidmonitor respirator y and fluid statusmoni tor renal function with recent arf on crf Essential hypertension 17132378 I10 bumex 2 mg qam 1 mg qpmspirono lactone 25 mg bidmetopro lol 50 mg qdnorvasc 5 mg qdimdur 30 mg qdhydralaz ine 25 mg bidmonitor bp and need to titrate [id number] CHAKA Hawkins [facility] on [address] [place] [address] 10/27/2022 11:28:29 10/29/2022 10:44:01 Acute constipation 836886508 K59.09 xray of abdomen for unknown amount [...] d Chronic ki dney disease stage 3A 585963907 N18.31 bun/creat remains elevated, though lab results as above slightly better on 10/23/22avoi d nephrotoxi c meds as ablerefer to nephro - will notify facilities planner Acute hyponatremia 06964 02 E87.1 Na 139 on 10/23/22labs weekly on Tuesdays Chronic co mbined systolic and diastolic heart failure 0146658872 94862 I50.42 compensate dbumex 2 mg q am, 1 mg q pmspironol actone 25 mg bidmonitor fluid statusmoni tor renal function as above Essential hypertension 90066967 I10 ortho BPs bid x 3 dayswill dc hydralazin e 25 mg bid nowbumex 2 mg q am, 1 mg q pmspironol actone 25 mg bidmetopro lol 50 mg qdnorvasc 5 mg qdimdur 30 mg qdmonitor bp and need to titrate [id number] Andi Mejia MD [facility] on [address] [place] [address] 10/28/2022 12:36:51 10/30/2022 15:40:26 Panic disorder 976731624 F41.0 appears to be experienci ng panic attackvita l stablestar t ativan 0.5 mg q 4 may repeat in 30 min for effectscri pt and e kit script writtento ED for acute decompensa tionof note labs were ordered for today however not drawn [id number] Andi Mejia MD [facility] on [address] [place] [address] 10/31/2022 11:44:27 11/03/2022 16:09:35 Orthostatic hypotension 56122037 I95.1 with therapy stating bp dropped to 80's/40's when standing Essential hypertension 77717142 I10 see abovebumex 2 mg qam 1 mg qpmspirono lactone 25 mg bidmetopro lol 50 mg qd(norvasc 5 mg qd now discontinu ed)imdur 30 mg qdhydralaz ine 25 mg bidmonitor bp and need to titrate Pain of le ft shoulder joint 1860328887 1355047 M25.512 probable underlying OAx ray orderedawa it results Panic disorder 466703443 F41.0 patient now much improved and back to baselinemo nitor need to titrate ativan [id number] EPIFANIO CHEN [facility] on [address] [place] [address] 11/13/2022 13:45:01 11/18/2022 16:00:29 Essential hypertension 05198533 I10 continue bumex 2 mg qam 1 mg qpmspirono lactone 25 mg bidmetopro lol 50 mg qdimdur 30 mg qdhydralaz ine 25 mg bidmonitor bp and need to titrate Chest pain 04393639 R07. 9 see HPIno changes to plan of care despite elevated D dimer and tropnot felt to be pleuriticO rdered prn nitro for chest pain Chronic ki dney disease stage 3A 342888588 N18.31 likely moving to end stage with creat of 103 and bun 3.30encour age PO fluidsavoi d nephrotoxi c meds Anxiety 84963004 F41.1 ativan 0.5 mg q 4 hours PRNcontinu e [id number] CHAKA Hawkins [facility] on [address] [place] [address] 11/17/2022 07:53:39 11/19/2022 11:29:11 Chest pain 11280169 R07.9 no chest pain while in ED last night and EKG reassuring no changes to plan of care despite elevated D dimer and tropnot felt to be pleuriticp rn nitro available for chest pain Essential hypertension 92641516 I10 bp normalbume x 2 mg q am, 1 mg q pmspironol actone 25 mg bidmetopro lol 50 mg qdimdur 30 mg qdmonitor bp and adjust meds prn Chronic ki dney disease stage 3A 287837535 N18.31 likely moving to end stage with creat of 103 and bun 3.30encour age PO fluidsavoi d nephrotoxi c medsmonito r renal functionre jerry to nephro if pt and family agree Pain of le ft shoulder joint 1376772700 5982634 M25.512 is chronicno fracture on xray in ED though does have osteophyte s and joint space narrowingc ontinue tizanidine 4 mg qhs 20790220 [facility] [address] [place] [address] 11/18/2022 14:37:50 11/20/2022 14:56:24 Chronic combined systolic and diastolic heart failure 4519420941 35541 I50.42 compensate d bumex 2 mg q am, 1 mg q pm spironolac tone 25 mg bid monitor fluid status monitor renal function Anxiety 48829375 F41.1 ativan 0.5 mg q 4 hours PRNpsych prn [id number] Carolina Dennis MD [facility] on [address] [place] [address] 11/24/2022 17:49:54 11/28/2022 12:00:50 Chronic combined systolic and diastolic heart failure 6049007617 49386 I50.42 Appears euvolemic. Continue metoprolol 50 mg qd, bumex 2 mg q am and 1 mg q pm and spironolac tone 25 mg BIDMay need to decrease diuretics depending on renal functionMo nitor resp. status, fluid status, wts and labs. Anxiety 75686477 F41.1 Continue fluoxetine 30 mg qd and lorazepam 0.5 mg q 4 hrs prn.Monito r mood.Psych following. Essential hypertension 56031564 I10 Last check borderline , but otherwise good.Katherin nue bumex 2 mg q am and 1 mg q pm, spironolac tone 25 mg BID, metoprolol 50 mg qd, and imdur 30 mg qd.BP not being checked regularly, will order for M&F.Monito r BP and labs. Pain of le ft shoulder joint 7037926011 0292267 M25.512 Chronic pain with evidence of moderately severe OA per xray.With allergies to APAP, ibuprofen and morphine.W ill continue oxycodone 5 mg q 6 hrs prn.Will use ice, heat and PT and consider referral for steroid injection. Orthostati c hypotension 07636456 I95.1 Happened one time with rehab.No further episodes.M onitor. Acute constipation 9006 K59.09 Improved on increased bowel regimen.Co ntinue bowel meds as ordered.Mo nitor bowel function. Acute hyponatremia 06689 02 E87.1 No labs since 11/13, will reorder weekly labs. Asthenia 35702677 R53.1 Remains deconditio sissy.Contin ues to need PT/OT for strengthen ing, balance, gait training, safety and function.C ontinue fall precaution s.Monitor for safety.Mon itor for needs in terms of outpt services versus LTC. Morbid obesity 126066730 E66.01 Continue to encourage healthy eating.Mon itor. Asthma 029050731 J45.99 8 As above. Depressive disorder 3548 9007 F33.8 see above Chronic pain 75458603 G8 9.29 With renal failure rec for gabapentin is qd.Will change to gabapentin 600 mg qd and continue tizanidine 4 mg qhs, and oxycodone 5 mg q 6 prnMonitor sxs Chronic ob structive pulmonary disease 13176142 J41.1 Combined obstructiv e and restrictiv e disease per PFTS in past.Katherin nue Flovent 110 mcg 2 puffs BID, and albuterol HFA 2 puffs q 4 hrs prn.Monito r resp status. Diabetic p eripheral neuropathy 613346905 E11.42 As above Diabetes mellitus 101390 09 E11.21 Sugars in good control since here. HgA1C was 8.5 in 3Cont inue lantus 50U BID and SSI.Monito r fingerstic ks TID and HgA1C q 3 months. Mixed hyperlipidemia 267 347141 E78.2 Continue simvastati n 20 mg qdMonitor labs yearly Obstructiv e sleep apnea syndrome 57974864 G47.33 Not on CPAP.Consi jo-ann sleep study. Coronary arteriosclerosis 20547151 I25.10 No recent sxs (recent chest pain not thought to be cardiac.)C ontinue meds as above.F/U with cardio prn. Chronic ki dney disease stage 4 915380626 N18.4 No labs since 11/13.With severely elevated BUN.Will order labs for tomorrow.N eeds renal consult.Wi ll be real balancing act with management of CHF and CKD. [id number] Andi Mejia MD [facility] on [address] [place] [address] 11/26/2022 14:50:28 11/28/2022 12:50:15 Acute kidney injury 55519409 N17.8 ARF on CRF stage 3 at baseline however appear to be stage 4improved with IVFmonitor renal functionav oid nephrotoxi c meds as ablenephro consult Chronic ki dney disease stage 3A 745678493 N18.4 see HPImonitor renal function on bumex and spironolac tone for CHFrepeat bmp at f/u with pcp Asthenia 85552332 R53.1 will need 24 hour supervisio n now in place in community Chronic co mbined systolic and diastolic heart failure 7306774146 52831 I50.42 bumex 2 mg qam 1 mg qpmspirono lactone 25 mg bidmonitor respirator y and fluid statusmoni tor renal function with recent arf on crf Coronary arteriosclerosis 77221483 I25.10 metoprolol 50 mg qdASA 81 mg qdsimvasta tin 20 mg qdcontinue d Health Concerns Section Related Observation LastModified by Organization Detai ls LastModified Time None Recorded Concern Status LastModified by Organization Details LastModified Time None Recorded Advance Directives Directive Y: Payers Insurance Date Sequence Insurance Name Policy Number Policy Drake Covered Member ID Drake Member ID Guarantor Name 12/25/2023 1 [place] Lupisderrick Ana [id number] Lupis Mueller Notes Date Note Type Note [...] yesterday. She appears very anxious. EPIFANIO [address] [facility] [address], [address], [place], [address], [facility] 11/13/2022 14:07:45 3 text/html pt seen today for acute telemedicine visit. last night pt called 911 and sent herself out to [facility] ED stating per nurse that she wasn't [...] to SNF for rehab. CHAKA Hawkins [address], [address], [place], [address], [facility] 11/17/2022 13:34:21 3 text/html ROS as noted in the HPI seen today for acute rounding visit, CAOx3 in the day room in her wheelchair, she is weepy saying my legs don't work anymore , chatted withher for a few minutes and she calmed, lungs clear, ate well at lunch PEDRO MONAE NP [address] [facility] [address], [address], [place], [address], [facility] 11/19/2022 10:31:14 3 text/html This is a 62 yo woman who I am seeing today for a routine MD 60 day reeval rounding visit. She was admitted here on 10/03 after spending several days at the [facility] awaiting placement. She had been seen at the [facility] several times in the month prior. [...] since she was admitted to this facility. [employer]SEH[employer]PLIANC[employer] SALESPERSON concurs and [facility] records show this also. pt is eating 75-100% of all her meals. currently on senna 2 qhs and colace daily. pt is making progress with rehab, walking up to 165 feet. ghotra cath recently removed and pt is voiding normally. Carolina Dennis MD [address] [facility] [address] [address], [address], [place], [address], [facility] 11/24/2022 20:21:29 3 text/html Patient is a [...] home. Will require 24/7 supervision with VNA, ABSORPTION AND ADSORPTION ENGINEER and meals on wheels in place, will be living with daughter. Discussed with SW. Of note labs were ordered yesterday, called labs for result with significant improvement in bun/cre Andi Mejia MD [address] [place] [address], [address], [place], [place], [address], [facility] 11/26/2022 14:57:47 OBGyn Episode No OBEpisode recorded.
--- OUTSIDE RECORDS SUMMARY | 2025-05-30 13:22 | XMS_ITS | Encounter Summary ---
Author Organization [facility] Address [address] [place] [address] Phone Care Team Providers Care Cooler Deliverer Name Role Phone Tavo Huber MD Primary Care Provider Andi Mejia MD Primary Care Provider [phone] Encounter Details Date Type Department Care Team (Late st Contact Info) Description 10/23/2022 Transcribe Orders [facility] Specimen Processing [address] [place] [address] Andi Mejia MD [address] [facility] [address], [address] [place] [address] [email or web address] Bipolar 1 disorder (Primary Dx) Social History [...] EDT) WBC 8.33 4.00 - 11.00 K/uL [facility] RBC 3.40(L) 3.72 - 5.30 M/uL [facility] HGB 9.3(L) 11.4 - 15.9 g/dL [facility] HCT 29.5(L) 34.2 - 46.8 % [facility] PLT 178 140 - 430 K/uL [facility] MCV 86.8 78.0 - 97.0 fL [facility] MCH 27.4 25.0 - 33.0 pg [facility] MCHC 31.5(L) 32.0 - 36.0 g/dL [facility] RDW 14.3 11.0 - 16.0 % [facility] MPV 9.2 8.4 - 12.8 fl [facility] DIFF METHOD Auto [facility] NEUTS 71.2 43.0 - 75.0 % [facility] LYMPHS 13.7(L) 18.2 - 47.4 % [facility] MONOS 11.5(H) 4.00 - 11.00 % [facility] EOS 2.6 0.0 - 8.0 % [facility] BASOS 0.4 0.0 - 2.0 % [facility] Granulocytes, immature (%) 0.6 0.0 - 0.9 % [facility] ABSOLUTE NEUTS 5.93 1.80 - 7.70 K/uL [facility] ABSOLUTE LYMPHS 1.14 1.00 - 3.10 K/uL [facility] ABSOLUTE MONOS 0.96(H) 0.20 - 0.80 K/uL [facility] ABSOLUTE EOS 0.22 0.00 - 0.80 K/uL [facility] ABSOLUTE BASOS 0.03 0.00 - 0.09 K/uL [facility] Granulocytes, immature 0.05 0.00 - 0.05 K/uL [facility] Blood 10/23/2022 6:20 AM EDT 10/23/2022 8:31 AM EDT us Andi Mejia MD LAB BLOOD BKR ORDERABLES Final R esult [address] [address] * (ABNORMAL) Basic metabolic panel (10/23/2022 6:20 AM EDT) SODIUM 139 133 - 146 mmol/L [facility] CHLORIDE 95(L) 96 - 108 mmol/L [facility] POTASSIUM 4.6 3.3 - 5.1 mmol/L [facility] CO2 30 21 - 35 mmol/L [facility] BUN 102(H) 6 - 19 mg/dL [facility] CREATININE 2.50(H) 0.5 - 1.5 mg/dL [facility] GLUCOSE 137(H) 70 - 99 mg/dL [facility] CALCIUM 8.7 8.4 - 10.3 mg/dL [facility] EGFR 21(L) >59 mL/min/1.7 3m2 [facility] Comment:Estimated glomerular filtration rate calculated using the CKD-EPI refit equation. ANION GAP 19 10 - 20 mmol/L [facility] 10/23/2022 6:20 AM EDT 10/23/2022 8:31 AM EDT us Andi Mejia MD LAB BLOOD BKR ORDERABLES Final R esult Performing Organization Address City/State/[facility] Co de Phone Number [address] [address] documented in this encounter Visit Diagnoses Diagnosis Bipolar 1 disorder- Primary documented in this encounter Additional Health Concerns Infection Onset Date Last Indicated Resolved Time CoV-Risk 11/13/2022 11/13/2022 11/24/2022 1:23 AM EDT documented as of this encounter Care Teams Cooler Deliverer Relationship Specialty Start Date End Date Tavo Huber MD [address] [place] [address] [place] [address] PCP - General Internal Medicine 12/21/20 11/16/22 Andi Mejia MD [address] [place] [address] [place] [address] [email or web address] PCP - General Family Medicine 11/17/22 documented as of this encounter Additional Source Comments The information contained in this document represents components of the legal health record. It is not the complete legal health record.[facility]
--- OUTSIDE RECORDS SUMMARY | 2025-05-30 13:22 | XMS_ITS | Clinical Summary ---
Author Organization [facility] Address [address] [place] [address] Phone Care Team Providers Care Solar Energy Installation Manager Name Role Phone Andi Mejia MD Primary Care Provider [phone] Allergies Active Allergy Reactions Criticality Noted Date [...] file Medical Devices Not on file [place] [address] [place] [address] [facility] [place] [address] PCC [facility] Advance Directives For more information, please contact: [phone] (9AM - 5PM [facility], Thursday-Thursday) Documents on File Type Date Recorded Patient Cipher Expert Expl anation MOLST 11/24/2022 12:57 PM Healthcare Proxy 12/21/20202020 Health care Proxy Care Teams Solar Energy Installation Manager Relationship Specialty Start Date End Date Andi Mejia MD [email or web address] PCP - General Family Medicine 11/17/22 Additional Source Comments The information contained in this document represents components of the legal health record. It is not the complete legal health record.[facility]
== END 2025-05-30 11:13 | disposition home or self-care (01) ==
LOC: HO.LAB 11:12
PROVIDERS: Absent Provider Physician Assistant; PCP Physician Assistant; Visit Provider Internal Medicine Hypertension Specialist
DX: E11.65 Type 2 diabetes mellitus with hyperglycemia (principal); E11.22 Type 2 diabetes mellitus with diabetic chronic kidney disease; I50.22 Chronic systolic (congestive) heart failure; N17.9 Acute kidney failure, unspecified; N18.9 Chronic kidney disease, unspecified; L60.2 Onychogryphosis; M20.41 Other hammer toe(s) (acquired), right foot; M20.42 Other hammer toe(s) (acquired), left foot; Z79.4 Long term (current) use of insulin
CPT/HCPCS: 11721; 36415; 73562; 80048; 99202

== ENCOUNTER → 2025-05-30 11:28 | Outpatient (BNV) | payer OTHER, SELFPAY | PROVIDERS: Absent Provider Physician Assistant; PCP Physician Assistant; Visit Provider Radiology Diagnostic Radiology | DX: M17.0 Bilateral primary osteoarthritis of knee (principal); I73.9 Peripheral vascular disease, unspecified | CPT/HCPCS: 73562 ==

== ENCOUNTER 2025-05-30 12:16 | Outpatient (AMB) | payer OTHER, SELFPAY ==
[2025-05-30 12:38] VITALS: BMI 50.3
--- NOTE | 2025-05-30 12:38 | MHC.OFFVIS ---
Vital Signs 05/30/25 12:38 Height 5 ft 2 in Weight 275 lb BMI 50.3 Intake Visit Reasons: Diabetic Foot Exam/ingrown nail Intake Note: Juan is a 65 year old female who presents today as a new patient for a diabetic foot exam. Patients last known glucose was 176 as of 05/30/25 and her last A1c is currently unknown. She reports experiencing numbness,tingling without burning and she denies any history of wounds or amputation to her feet. She currently has in growns on bilateral hallux and experiences pain.Patient has not tried any treatment for her ingrowns at this time. Allergies ibuprofen Allergy (Intermediate, Verified 05/30/25 13:10) vomiting, itching acetaminophen (Tylenol) Allergy (Unknown, Verified 05/30/25 13:10) Unknown codeine Adverse Reaction (Severe, Verified 05/30/25 13:10) Anaphylaxis morphine Adverse Reaction (Intermediate, Verified 05/30/25 13:10) vomiting vancomycin Adverse Reaction (Intermediate, Verified 05/30/25 13:10) Itching HPI HPI Diabetic Foot Exam/ingrown nail: Details: 65-year-old female with past medical history of diabetes mellitus type 2, hypertension, hyperlipidemia, GERD, osteoarthritis bilateral knees, lower back pain and gait instability, presents for annual diabetic evaluation. She states she used to see a hospice office coordinator who has perform her routine nail care until he . She has been unable to find other hospice office coordinator since then. She has pain to her big toe nails bilaterally, and is concerned for an ingrown nail. She also has pain to her right second toe and has been wrapping it with a band-aid. [facility] Medical History Mood disorder Panic disorder Diabetic nephropathy Cataracts, bilateral DANIEL (obstructive sleep apnea) COPD (chronic obstructive pulmonary disease) NICM (nonischemic cardiomyopathy) Hypertension Elevated d-dimer FELICIA (acute kidney injury) Abdominal pain Constipation Chronic respiratory failure with hypoxia Stercoral colitis Decubitus ulcer Hypoxia CHF exacerbation MDD (major depressive disorder), recurrent episode, moderate Adjustment disorder with mixed anxiety and depressed mood Cellulitis of right lower extremity Stasis dermatitis of both legs Asthma Hyperglycemia due to diabetes mellitus Congestive heart failure Obesity hypoventilation syndrome CKD (chronic kidney disease) stage 3, GFR 30-59 ml/min Acute on chronic combined systolic and diastolic CHF (congestive heart failure) Morbid obesity Diabetic neuropathy, painful Chronic pain High cholesterol Depression Diabetes Surgical History History of surgery Hx of cholecystectomy Family History Mother HTN (hypertension) Diabetes CAD (coronary artery disease) Father HTN (hypertension) Diabetes CAD (coronary artery disease) Maternal Grandmother CAD (coronary artery disease) Social History Household Members: None Household Members Other:: GRANDSON Housing: Apartment 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 Do you presently have visiting nurse or other home services: Yes Alcohol intake: current Alcohol intake frequency: holidays/special occasions only Alcohol type: wine Comment: 1:1 Patient Tobacco Use Status: Former Tobacco user Tobacco use type: Cigarette Years Smoked: 38 e-Cigarette/Vaping Use: Never Used Second Hand Smoke Exposure: No Substance Use Type: Former Substance User Advance Directives Date on File: 04/30/23 service: No Current occupational status: disabled Current occupation: rt handed Cognitive needs: Yes (walker, cane) Hearing needs: No Vision needs: Yes (Rx glasses) Review of Systems Const All systems reviewed & are unremarkable except as noted in HPI and below Physical Exam Vital Signs: BMI result Body Mass Index 50.3 Extrem Other: *Bilateral Lower Extremity Focused Diabetic Foot Exam Vascular: DP/PT 2/4, CFT<3s to digits, TG warm to cool, no pedal edema, pedal hair absent Derm: Skin: No open lesions, ulcerations, or calluses. Interdigital spaces: Clear, no maceration or fungal infection. Nails: Elongated thickened incurvated hallux nails bilaterally, mild pain on palpation of the lateral base of the right hallux nail. No erythema or clinical signs of infection.. Dystrophic thickened nails with subungual debris x 10. Neuro: Protective sensation grossly diminished bilateral lower extremities Msk: Right 2nd digit is extended at the Metatarsal-phalangeal joint and flexion at the PIPJ with mild swelling. Footwear Assessment: Shoes inspected; appropriate fit, no excessive wear, or foreign objects noted. Office Procedures AMB Debridement/Avulsion Podia Details: Procedure: Nail debridement Location: 10 nails, bilateral feet Anesthesia: N/A Description: The affected toenails were cleansed with an antiseptic solution. Using sterile nail nippers and a rotary he, dystrophic and mycotic nail material was carefully debrided and reduced in thickness. Care was taken to avoid trauma to the surrounding skin and nail bed. All debris was removed as tolerated. The area was inspected for signs of infection or ulceration. Patient tolerated the procedure well without complications. Tolerance: Patient tolerated procedure well, no immediate complications. Class B findings as per physical exam findings above. The patient has a diagnosis of diabetes mellitus and presents with elongated, thickened toenails. Due to underlying diabetic neuropathy and mild vascular disease findings, the patient is at increased risk for complications such as ulceration, infection, and difficulty with self-care. Debridement of elongated toenails is medically necessary to prevent development of pressure-related lesions, reduce risk of secondary infection, and maintain foot health in high-risk comorbidities. 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 The patient has loss of protective sensation. No remarkable signs of peripheral arterial disease. No plans for further testing/referrals for non-invasive vascular studies. Patient is at low-moderate risk for diabetic foot complications at this time. Recommendations: Continue routine foot care and daily self-inspection. Recommend moisturizing daily. Recommend supportive proper fitting shoe-wear. Patient is referred for extra-depth diabetic shoes with forefoot padding. Reinforced diabetic foot education and risks from peripheral neuropathy. (2) Onychogryphosis: Code(s): L60.2 - Onychogryphosis Category: Medical Plan: Debrided elongated nails x10 using a sterile nail nipper. (3) Acquired hammertoes of both feet: Code(s): M20.41 - Other hammer toe(s) (acquired), right foot; M20.42 - Other hammer toe(s) (acquired), left foot Category: Medical Plan: Recommended hammer-toe crest pad Orders: Orders AMB Debridement/Avulsion Podiatry Today L60.2 - Onychogryphosis Coding Level of Care Code New Pt Level 4 (84297) Diagnoses Type 2 diabetes mellitus with hyperglycemia, with long-term current use of insulin E11.65; Z79.4 Diabetes mellitus type: type 2 Diabetes mellitus long-term insulin use: with airconditioning drafting officer use Onychogryphosis L60.2 Acquired hammertoes of both feet M20.41; M20.42 CPT Codes Skin Debridement - CPT: 25562-Iivpfpckjhq of Nail 6+ ([id number]) Time Spent (min) 30
== END 2025-05-30 13:00 | disposition home or self-care (01) ==
LOC: HO.HPODS 12:16
PROVIDERS: PCP Physician Assistant; Visit Provider Student in an Organized Health Care Education/Training Program
DX: E11.65 Type 2 diabetes mellitus with hyperglycemia (principal); Z79.4 Long term (current) use of insulin; L60.2 Onychogryphosis; M20.41 Other hammer toe(s) (acquired), right foot; M20.42 Other hammer toe(s) (acquired), left foot
CPT/HCPCS: 11721; 99204

== ENCOUNTER 2025-06-06 12:10 | Outpatient (AMB) | payer OTHER, SELFPAY ==
--- NOTE | 2025-06-06 12:10 | HO.NEPHOV_ITS ---
Vital Signs 06/06/25 12:11 Height 5 ft 2 in Weight 274 lb BMI 50.1 Pulse 107 H Pulse Source Pulse Oximeter Pulse Oximetry (%) 96 Oxygen Delivery Method Room Air Intake Visit Reasons: 2 wks f/u w/ labs Content Development Specialist Required: No Allergies ibuprofen Allergy (Intermediate, Verified 06/06/25 12:11) vomiting, itching acetaminophen (Tylenol) Allergy (Unknown, Verified 06/06/25 12:11) Unknown codeine Adverse Reaction (Severe, Verified 06/06/25 12:11) Anaphylaxis morphine Adverse Reaction (Intermediate, Verified 06/06/25 12:11) vomiting vancomycin Adverse Reaction (Intermediate, Verified 06/06/25 12:11) Itching Medication List - Last Reconciled 06/06/25 by Manoj Cespedes MD [ADULT PULL UP XL 4 per day NS] alcohol swabs (Alcohol Pads) 1 pad topical .8 times daily allopurinol 100 mg PO DAILY BD Insulin Syringe (half unit) (insulin syr/ndl U100 half dionna) As directed NS blood-glucose meter (FreeStyle Lite Meter kit) As directed checks POC 4 X/day bumetanide 2 mg PO DAILY 90 days buspirone 30 mg PO BID [Chux 3x/day] clonidine HCl 0.1 mg PO TID Comfort EZ Pen [place] (pen needle, diabetic) 4 times daily NS [Commode bags 4x/day NS] duloxetine 60 mg PO DAILY FreeStyle Lancets (lancets) four times daily NS FreeStyle Lucy 3 [place] (blood-glucose,burr mill operator,cont) As directed NS FreeStyle Lucy 3 Sensor (blood-glucose sensor) every 14 days NS FreeStyle Lite Strips (blood sugar diagnostic) four times daily NS gabapentin 400 mg PO BID@0900,1500 insulin glargine (Lantus Solostar U-100 Insulin) 60 units subcut BEDTIME insulin lispro (Humalog U-100 Insulin) 4 units See Protocol subcut TID insulin syringe-needle U-100 (BD Insulin Syringe Ultra-Fine) insulin syringe-needle U-100 (BD Insulin Syringe Ultra-Fine) Four times daily isosorbide mononitrate ER 60 mg (2 x 30 mg) PO DAILY linaclotide (Linzess) 290 mcg PO DAILY lorazepam 0.5 mg PO TID PRN metolazone 2.5 mg PO Q OTHER DAY metoprolol succinate ER 50 mg PO DAILY [nitrile gloves 4x/day] pantoprazole 20 mg PO BEDTIME@1800 pen needle, diabetic (Comfort EZ Pen [place]) four times daily pen needle, diabetic four times daily prazosin 1 mg PO BEDTIME [pressure relief cushion daily] risperidone 1 mg PO BEDTIME sertraline 75 mg PO DAILY simvastatin 20 mg PO BEDTIME tirzepatide (weight loss) (Zepbound) 5 mg subcut WE trazodone 150 - 300 mg PO BEDTIME PRN HPI Comments Details: Lupis has been referred for the evaluation of CKD. She is well known to me from previous hospitalization. She had recently seen by a surveyor hydrographic few days ago and she is extremely unhappy with the service and she has decided to switch service. Lupis is a 64-year-old woman with multiple medical problems including chronic kidney disease with a baseline creatinine of around 2 mg/dL history of longstanding diabetes mellitus and hypertension history of congestive heart fail ure cardiomyopathy and obesity. She was recently hospitalized for shortness of breath. However she has signed out AMA. She continues to have shortness of breath she is on Lasix with suboptimal respo nse. She denies any chest pain. No nausea or vomiting. No urinary symptoms. 06/06/25 [facility] Medical History Mood disorder Panic disorder Diabetic nephropathy Cataracts, bilateral DANIEL (obstructive sleep apnea) COPD (chronic obstructive pulmonary disease) NICM (nonischemic cardiomyopathy) Hypertension Elevated d-dimer FELICIA (acute kidney injury) Abdominal pain Constipation Chronic respiratory failure with hypoxia Stercoral colitis Decubitus ulcer Hypoxia CHF exacerbation MDD (major depressive disorder), recurrent episode, moderate Adjustment disorder with mixed anxiety and depressed mood Cellulitis of right lower extremity Stasis dermatitis of both legs Asthma Hyperglycemia due to diabetes mellitus Congestive heart failure Obesity hypoventilation syndrome CKD (chronic kidney disease) stage 3, GFR 30-59 ml/min Acute on chronic combined systolic and diastolic CHF (congestive heart failure) Morbid obesity Diabetic neuropathy, painful Chronic pain High cholesterol Depression Diabetes Surgical History History of surgery Hx of cholecystectomy Family History Mother HTN (hypertension) Diabetes CAD (coronary artery disease) Father HTN (hypertension) Diabetes CAD (coronary artery disease) Maternal Grandmother CAD (coronary artery disease) Social History Household Members: None Household Members Other:: GRANDSON Housing: Apartment 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 banking Do you presently have visiting nurse or other home services: Yes Alcohol intake: current Alcohol intake frequency: holidays/special occasions only Alcohol type: wine Comment: 1:1 Patient Tobacco Use Status: Former Tobacco user Tobacco use type: Cigarette Years Smoked: 38 e-Cigarette/Vaping Use: Never Used Second Hand Smoke Exposure: No Substance Use Type: Former Substance User Advance Directives Date on File: 04/30/23 service: No Current occupational status: disabled Current occupation: rt handed Cognitive needs: Yes (walker, cane) Hearing needs: No Vision needs: Yes (Rx glasses) Physical Exam Vital Signs: Last Vital Signs Pulse 107 H 06/06/25 12:11 Pulse Ox 96 06/06/25 12:11 Oxygen Delivery Method Room Air 06/06/25 12:11 BMI result Body Mass Index 50.1 Const General: cooperative, alert and awake Neck Neck: Yes supple Resp Auscultation: clear to auscultation bilaterally Cardio Jugular venous distension: no JVD Palpation: no palpable S3 Heart sounds: no rubs GI Palpation (GI): Soft to palpation Auscultation: normal bowel sounds Skin Rashes: no rashes Neuro Motor exam (neuro): no asterixis Extrem General: Yes edema Results Reviewed Nephrology Results: Hgb, (12.0-16.0) 10.7 g/dl L 05/11/25 WBC, (4.8-10.8) 6.8 X10*3/uL 05/11/25 Plt Count, (160-400) 157 X10*3/uL L 05/11/25 Sodium, (135-145) 142 mmol/L 05/30/25 Potassium, (3.3-5.1) 4.9 mmol/L 05/30/25 Chloride, (96-108) 106 mmol/L 05/30/25 Carbon Dioxide, (22-29) 27 mmol/L 05/30/25 BUN, (9-16) 21 mg/dL H 05/30/25 Creatinine, (0.5-1.4) 1.34 mg/dL 05/30/25 Calcium, (8.4-10.2) 8.8 mg/dL Δ 05/30/25 Urine Protein, (Neg-Trace) Negative mg/dL 05/10/25 Renal US 05/10/25 Assessment & Plan Assessment & Plan (1) Chronic heart failure with reduced ejection fraction (HFrEF, <= 40%): Code(s): I50.22 - Chronic systolic (congestive) heart failure Category: Medical Plan Middle-aged woman with stage IIIB chronic kidney disease in the setting of longstanding diabetes mellitus and hypertension along with cardiomyopathy. She has sustained acute kidney injury most likely due to hypoperfusion secondary to cardiorenal syndrome. Currently she appears hypervolemic. Anemia multifactorial. Hypertension blood pressure is acceptable. Plan Keep current dose of Lasix. Add metolazone 2.5 mg every other day for 5 doses. I have given return instructions to be given to her nurse. Encouraged her to stay on a low-sodium diet. Try to monitor weights if possible. Limit oral free water intake. Check iron TIBC ferritin. No absolute indication for Epogen. Follow calcium intact PTH and add vitamin-D analogs as indicated. Answered all her questions she returned to the office in the next few weeks. Orders: Orders Basic Metabolic Panel 4 Weeks N17.9 - Acute kidney failure, unspecified Coding Level of Care Code Est Pt Level 4 (87509) Diagnoses Chronic heart failure with reduced ejection fraction (HFrEF, <= 40%) I50.22
[2025-06-06 12:11] VITALS: PULSE 107; O2SAT 96; BMI 50.1
--- OUTSIDE RECORDS SUMMARY | 2025-06-07 03:02 | XMS_ITS | Clinical Summary ---
Author Organization [facility] Address [address] [place] [address] Phone Care Team Providers Care Rouge Miller Name Role Phone Tavo Huber MD Primary [...] age to complete this topic Insurance [employer] Advance Directives Documents on File Type Date Recorded Patient Skeiner Expl anation Health Care Decision (hx) 02/25/2022 [...] (hx) 10/14/2020 AD GARCIA DIRECTIVE Care Teams Rouge Miller Relationship Specialty Start Date End Date Tavo Huber MD [address] [place] [address] Dr Anjelica [place] PCP - General Internal Medicine 10/09/21
--- OUTSIDE RECORDS SUMMARY | 2025-06-07 03:03 | XMS_ITS | Clinical Summary ---
Author Organization [facility] Address [address] [place] [address] Phone Care Team Providers Care General Scrap Worker Name Role Phone Andi Mejia MD Primary Care Provider [phone] Allergies Active Allergy Reactions Criticality Noted Date [...] file Medical Devices Not on file [place] [address] [facility] [place] [address] [facility] Advance Directives For more information, please contact: [phone] (9AM - 5PM [facility], Thursday-Thursday) Documents on File Type Date Recorded Patient Armorer Technician Expl anation MOLST 11/24/2022 12:57 PM Healthcare Proxy 12/21/20202020 Health care Proxy Care Teams General Scrap Worker Relationship Specialty Start Date End Date Andi Mejia MD [email or web address] PCP - General Family Medicine 11/17/22 Additional Source Comments The information contained in this document represents components of the legal health record. It is not the complete legal health record.[facility]
--- OUTSIDE RECORDS SUMMARY | 2025-06-07 03:03 | XMS_ITS | Encounter Summary ---
Author Organization [facility] Address [address] [place] [address] Phone Care Team Providers Care Supervisor Purification Name Role Phone Andi Mejia MD Primary Care Provider Encounter Details Date Type Department Care Team (Late st Contact Info) Description 11/23/2022 Procedure [facility], Ct Scan - [facility] [address] [place] [address] Social History Tobacco Use Types Packs/Day Years [...] 9:30 PM EDT Corrie Gilmore RN * [place] Suicide Severity Rating Scale (Screener/Recent Self-Report) Question [...] documented as of this encounter Care Teams Supervisor Purification Relationship Specialty Start Date End Date Andi Mejia MD [email or web address] PCP - General Family Medicine 11/17/22 documented as of this encounter Additional Source Comments The information contained in this document represents components of the legal health record. It is not the complete legal health record.[facility]
--- OUTSIDE RECORDS SUMMARY | 2025-06-07 03:03 | XMS_ITS | Encounter Summary ---
Author Organization [facility] Address [address] [place] [address] Phone Care Team Providers Care Industrial Electrician Journeyman Name Role Phone Andi Mejia MD Primary Care Provider [phone] Encounter Details Date Type Department Care Team (Late st Contact Info) Description 11/23/2022 Procedure Pass [facility], Ct Scan - [facility] [address] [place] [address] Social History Tobacco Use Types Packs/Day Years [...] 9:30 PM EDT Corrie Gilmore RN * [place] Suicide Severity Rating Scale (Screener/Recent Self-Report) Question [...] documented as of this encounter Care Teams Industrial Electrician Journeyman Relationship Specialty Start Date End Date Andi Mejia MD PCP - General Family Medicine 11/17/22 documented as of this encounter Additional Source Comments The information contained in this document represents components of the legal health record. It is not the complete legal health record.[facility]
--- OUTSIDE RECORDS SUMMARY | 2025-06-07 03:03 | XMS_ITS | Clinical Summary ---
Author Organization [facility] Address [address] [place] [address] Phone Care Team Providers Care Hydraulic Technician Name Role Phone Celia Horn Primary Care Provider [phone] Allergies Active Allergy Reactions Criticality Noted Date [...] Active Problems Problem Noted Date Diagnosed Date Dysuria 05/17/2025 Acute nontraumatic kidney injury, not otherwise specified 05/17/2025 Other asthma 01/16/2021 Other reduced mobility 01/16/2021 [...] Office Visit [facility] [address] [address] Yaquelin Bustos ARNP Acute nontraumatic kidney injury, not otherwise specified (HCC) (Primary Dx); Stage 3a chronic kidney disease (HCC); Hypertension; Type 2 diabetes mellitus with diabetic [...] Office Visit [facility] [address] [place] [address] Jesus Gilbert MD [address] [address] Health Maintenance Due Date Last Done Comments [...] Result from Last 3 Months Insurance Medicaid [place] [facility] Medicaid Care Teams Hydraulic Technician Relationship Specialty Start Date End Date Celia Horn [address] [place] [address] PCP - General 05/15/25
--- OUTSIDE RECORDS SUMMARY | 2025-06-07 03:03 | XMS_ITS | Data Portability ---
Author Organization [facility], Main Office Address [address] [place] [address] Care Team Providers Care Prepress Operator Name Role Phone SISI WATSON Primary Care Provider [facility] OTHER Assessment Encounter Date Assessment Date Assessment LastModified by Organization Details LastModified Time 11/17/2022 11/17/2022 11/13/22 wbc 11.9, hgb 9.9, plt 226, na 140, k 4.9, bun 103, creat 3.30, LFTs normal [email or web address] Not available 11/17/2022 13:30:40 11/24/2022 11/24/2022 11/13/22 [...] Recorded Time Chronic kidney disease stage 3A 628407426 Active 2022 Andi Mejia MD [address], [address], [place], [address], [facility] 3 09:24:07 Morbid obesity 866877987 Active 2022 Andi Mejia MD [address], [address], [place], [address], [facility] 3 09:29:42 Chronic combined systolic and diastolic heart failure 8587307015845 00 Active 2022 Andi Mejia MD [address], [address], [place], [address], [facility] 3 09:29:52 Nonischemic congestive cardiomyopa thy 142101673509 Active 2022 Andi Mejia MD [address], [address], [place], [address], [facility] 3 09:30:08 Anxiety 76129839 Active 2022 Andi Mejia MD [address], [address], [place], [address], [facility] 3 09:30:15 Depressive disorder 61620789 Active 2022 Andi Mejia MD [address], [address], [place], [address], [facility] 3 09:30:19 Asthma 168355120 Active 2022 Andi Mejia MD [address], [address], [place], [address], [facility] 3 09:30:26 Chronic pain 75553275 Active 2022 Andi Mejia MD [address], [address], [place], [address], [facility] 3 09:30:32 Chronic constipatio n 674299957 Active 2022 Andi Mejia MD [address], [address], [place], [address], [facility] 3 09:30:40 Chronic obstructive pulmonary disease 68230243 Active 2022 Andi Mejia MD [address], [address], [place], [address], [facility] 3 09:30:44 Diabetic peripheral neuropathy 550583745 Active 2022 Andi Mejia MD [address], [address], [place], [address], [place] [facility] 3 09:30:56 Diabetes mellitus 12734980 Active 2022 Andi Mejia MD [address], [address], [place], [address], [facility] 3 09:31:01 Mixed hyperlipide matilda 653187664 Active 2022 Andi Mejia MD [address], [address], [place], [address], [facility] 3 09:31:09 Essential hypertensio n 28660154 Active 2022 Andi Mejia MD [address], [address], [place], [address], [facility] 3 09:31:15 Obstructive sleep apnea syndrome 38905938 Active 2022 Andi Mejia MD [address], [address], [place], [address], [facility] 3 09:31:20 Panic disorder 777816096 Active 2022 Andi Mejia MD [address], [address], [place], [address], [facility] 3 09:31:26 Coronary arterioscle rosis 95023710 Active 2022 Andi Mejia MD [address], [address], [place], [address], [facility] 3 09:31:30 Chronic kidney disease stage 4 540625132 Active 2022 Carolina Dennis MD [address], [address], [place], [address], [facility] 3 18:36:56 Acute hyponatremi a 3447381 Active 2022 Carolina Dennis MD [address] [facility], [address], [place], [address], [facility] 3 18:43:11 Asthenia 21483619 Active 2022 Carolina Dennis MD [address] [facility] [address] [facility], [address], [place], [address], [facility] 3 18:43:57 Problem Notes None recorded. Medical Equipment None Reported. Allergies Allergen ID Allergen Name Allergen Category Reaction Reaction Severity Criticality Documentation Date Start Date Code Code System Note Provider Name and Address Organization Details Recorded Time 20576 ibuprofen medicatio n Not available Not available Not available 10/08/2022 5640 RxBlake Mejia MD [address] [facility] [address] [facility], [address], [place], [address], [facility] 3 09:16:39 [address]802 Tylenol medicatio n Not available Not available Not available 10/08/2022 3 RxBlake Mejia MD [address] [facility], [address], [place], [address], [facility] [email or web address] 3 09:16:43 70958 morphine medicatio n Not available Not available Not available 10/08/2022 [id number] Magdaleno Mejia MD [address] [facility], [address], [place], [address], [facility] [email or web address] 3 09:16:48 Medications Name Sig Start Date [...] 97.9 [degF] 124/70 mm[Hg] CHAKA Hawkins [address], [address], [place], [address], [facility] 3 07:57:14 Date Recorded Heart rate Respiratory rate Body temperature Oxygen saturation Oxygen saturation in Arterial blood by Pulse oximetry Provider Name and Address Organization Details Last Updated DateTime 3 74 /min 16 /min 97.8 [degF] 96 % 96 % PEDRO MONAE NP [address] [facility] [facility], [address], [place], [address], [facility] 3 15:33:19 Date Recorded Body weight Body mass index (BMI) Body height Heart rate Respiratory rate Body temperature Oxygen saturation Oxygen saturation in Arterial blood by Pulse oximetry Systolic And Diastolic Provider Name and Address Organization Details Last Updated DateTime 3 890908. 54 g 44.6 kg/m2 157.48 cm 80 /min 18 /min 97.6 [degF] 96 % 96 % 148/82 mm[Hg] Carolina Dennis MD [address] [facility] [facility], [address], [place], [address], [facility] 3 18:00:03 Social History Question Answer Notes LastModified by Organizat ion Details LastModified Time Tobacco Smoking Status Former Smoker quit 1999 30+ pack year hx Andi Mejia MD [address] [facility] [facility] [address] [facility], [address], [place], [address], [facility] 10/08/2022 11:59:39 Do You Have An Advance Directive? Yes Information not available 10/08/2022 What Is Your Code Status? Full Code Information not available 10/08/2022 Where Do You Live? Apartment Information not available 11/24/2022 Legal Guardian? 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 Yes Information not available 11/24/2022 [...] Recorded Time pneumococcal polysaccharide PPV23 7 completed [facility] 09/23/2023 15:30:16 pneumococcal polysaccharide PPV23 2 completed [facility] 09/23/2023 15:31:52 Past Encounters Encounter ID Performer Location Encounter Start Date Encounter Closed Date Diagnosis/Indication Diagnosis SNOMED-CT Code Diagnosis ICD10 Code Diagnosis IMO Codes Diagnosis Note [id number] Andi Mejia MD [facility] [address] [place] [address] 10/08/2022 09:16:00 10/13/2022 13:18:32 Acute kidney injury 80447890 N17.8 ARF on CRF stage 3 at baseline however appear to be stage 4improved with IVFmonitor renal functionav oid nephrotoxi c meds as ablenephro consult Chronic ki dney disease stage 3A 924568182 N18.31 carrying dx of crf stage 3 however appear stage 4 Asthenia 83326907 R53.1 severe deconditio ningPT OT eval and treatmonit or need for increased services in community vs need to transition to LTC Acute hyponatremia 60822 02 E87.1 Zp=065 in hospitalre peat bmp and monitor lytes Morbid obesity 100666589 E66.01 dietary to eval Chronic co mbined systolic and diastolic heart failure 3548512028 27192 I50.42 bumex 2 mg qam 1 mg qpmspirono lactone 25 mg bidmonitor respirator y and fluid statusmoni tor renal function with recent arf on crf Nonischemi c congestive cardiomyopathy 2465216384 04 I42.0 added to PMHcontinu e current meds Anxiety 78772624 F41.1 fluoxetine 40 mg qdrisperda l 1 mg bid question dx of bipolarto contact PCP for full dx listpsych to evalmonito r for behaviors Asthma 268087107 J45.99 8 at baselineal buterol MDI prn Depressive disorder 3548 9007 F33.8 see above Chronic pain 60677925 G8 9.29 gabapentin 400 mg tidoxycodo ne 5 mg q 6 prnmonitor for effect Chronic constipation 236 300589 K59.09 bowel protocol Chronic ob structive pulmonary disease 46140366 J41.1 carrying dxadded to PMHmonitor respirator y status Diabetic p eripheral neuropathy 193344002 E11.42 gabapentin 400 mg tidmonitor for effect Diabetes mellitus 706276 09 E11.21 lantus 50 units bidSS insulinmon itor blood glucose and need to titrate Mixed hyperlipidemia 267 257969 E78.2 simvastati n 20 mg qdcontinue d Essential hypertension 94200457 I10 appears to have difficult to control htn current onbumex 2 mg qam 1 mg qpmspirono lactone 25 mg bidmetopro lol 50 mg qdnorvasc 5 mg qdimdur 30 mg qdhydralaz ine 25 mg bidmonitor bp and need to titrate Obstructiv e sleep apnea syndrome 74468781 G47.33 carrying dx added to PMH Panic disorder 659519649 F41.0 see aboveon risperdalp sych to eval Coronary arteriosclerosis 03956309 I25.10 metoprolol 50 mg qdASA 81 mg qdsimvasta tin 20 mg qdcontinue d [id number] AHSAN MCCONNELL NP [facility] on [address] [place] [address] 10/14/2022 11:46:11 10/16/2022 16:00:13 Acute kidney injury 68068863 N17.8 ARF on CRF stage 3 at baseline however appear to be stage 4improved with IVFmonitor renal function - check CMP in am x 1avoid nephrotoxi c meds as able; is on diureticsn ephro consult prn Chronic ki dney disease stage 3A 647501133 N18.31 carrying dx of crf stage 3 however appear stage 4 Asthenia 86356833 R53.1 severe deconditio ningPT OT eval and treatmonit or need for increased services in community vs need to transition to LTC Acute hyponatremia 17265 02 E87.1 Zo=682 in hospitalCM P x 1 in am Morbid obesity 602745130 E66.01 dietary to evalChange diet from regular to carb control Chronic co mbined systolic and diastolic heart failure 3992383126 29269 I50.42 bumex 2 mg qam 1 mg qpmspirono lactone 25 mg bidmonitor respirator y and fluid statusmoni tor renal function with recent arf on crf - CMP in am Nonischemi c congestive cardiomyopathy 1309145962 04 I42.0 added to PMHcontinu e current meds Anxiety 51142009 F41.1 fluoxetine 40 mg qdrisperda l 1 mg bid question dx of bipolarto contact PCP for full dx list - re-request edpsych to cassie mccain for behaviors Asthma 209453087 J45.99 8 at baselineal buterol MDI prn Depressive disorder 3548 9007 F33.8 see above Chronic pain 13461033 G8 9.29 gabapentin 400 mg tidoxycodo ne 5 mg q 6 prnmonitor for effect Chronic constipation 236 616315 K59.09 Add senna-s 2 tabs dailybowel protocolMo nitor and adjust as needed Chronic ob structive pulmonary disease 37052330 J41.1 carrying dxadded to PMHmonitor respirator y status Diabetic p eripheral neuropathy 368805191 E11.42 gabapentin 400 mg tidmonitor for effect Diabetes mellitus 457374 09 E11.21 lantus 50 units bidSS insulinmon itor blood glucose and need to fxkdwwwL2C x 1 in am Mixed hyperlipidemia 267 042961 E78.2 simvastati n 20 mg qdCMP, lipids x 1 in amcontinue d Essential hypertension 29962153 I10 appears to have difficult to control htn current onbumex 2 mg qam 1 mg qpmspirono lactone 25 mg bidmetopro lol 50 mg qdnorvasc 5 mg qdimdur 30 mg qdhydralaz ine 25 mg bidmonitor bp and need to titrate Obstructiv e sleep apnea syndrome 96010567 G47.33 carrying dx added to H Panic disorder 636403825 F41.0 see aboveon risperdalp sych to eval Coronary arteriosclerosis 37197026 I25.10 metoprolol 50 mg qdASA 81 mg qdsimvasta tin 20 mg qdcontinue d [id number] Andi Mejia MD [facility] [address] [place] [address] 10/22/2022 15:37:47 10/24/2022 12:17:55 Chronic kidney disease stage 3A 066191966 N18.31 carrying dx of crf stage 3 however appear stage 4monitor renal functionla bs ordered for tomorrow then q tuesdaysav oid nephrotoxi c meds as ablerefer to nephrowill attempt voiding trial in am with bladder scan q shift and straight cath if > 300cc Asthenia 96553428 R53.1 improving with therapynow able to ambulate up to 100 feet with walker with contact guardmonit or need for increased services in community vs need to transition to LTC Acute hyponatremia 60404 02 E87.1 Xt=229 in [facility] bmp and monitor lytesorder ed for tomorrow Chronic co mbined systolic and diastolic heart failure 4352581348 12273 I50.42 bumex 2 mg qam 1 mg qpmspirono lactone 25 mg bidmonitor respirator y and fluid statusmoni tor renal function with recent arf on crf Essential hypertension 02060235 I10 bumex 2 mg qam 1 mg qpmspirono lactone 25 mg bidmetopro lol 50 mg qdnorvasc 5 mg qdimdur 30 mg qdhydralaz ine 25 mg bidmonitor bp and need to titrate [id number] CHAKA Hawkins [facility] on [address] [place] [address] 10/27/2022 11:28:29 10/29/2022 10:44:01 Acute constipation 616920091 K59.09 xray of abdomen for unknown amount [...] d Chronic ki dney disease stage 3A 089478008 N18.31 bun/creat remains elevated, though lab results as above slightly better on 10/23/22avoi d nephrotoxi c meds as ablerefer to nephro - will notify critical care physician assistant Acute hyponatremia 21551 02 E87.1 Na 139 on 10/23/22labs weekly on Tuesdays Chronic co mbined systolic and diastolic heart failure 2608761275 61773 I50.42 compensate dbumex 2 mg q am, 1 mg q pmspironol actone 25 mg bidmonitor fluid statusmoni tor renal function as above Essential hypertension 05424094 I10 ortho BPs bid x 3 dayswill dc hydralazin e 25 mg bid nowbumex 2 mg q am, 1 mg q pmspironol actone 25 mg bidmetopro lol 50 mg qdnorvasc 5 mg qdimdur 30 mg qdmonitor bp and need to titrate [id number] Andi Mejia MD [facility] on [address] [place] [address] 10/28/2022 12:36:51 10/30/2022 15:40:26 Panic disorder 879958105 F41.0 appears to be experienci ng panic attackvita l stablestar t ativan 0.5 mg q 4 may repeat in 30 min for effectscri pt and e kit script writtento ED for acute decompensa tionof note labs were ordered for today however not drawn [id number] Andi Mejia MD [facility] on [address] [place] [address] 10/31/2022 11:44:27 11/03/2022 16:09:35 Orthostatic hypotension 76117657 I95.1 with therapy stating bp dropped to 80's/40's when standing Essential hypertension 94964509 I10 see abovebumex 2 mg qam 1 mg qpmspirono lactone 25 mg bidmetopro lol 50 mg qd(norvasc 5 mg qd now discontinu ed)imdur 30 mg qdhydralaz ine 25 mg bidmonitor bp and need to titrate Pain of le ft shoulder joint 4778574197 5022557 M25.512 probable underlying OAx ray orderedawa it results Panic disorder 322956185 F41.0 patient now much improved and back to baselinemo nitor need to titrate ativan [id number] EPIFANIO CHEN [facility] on [address] [place] [address] 11/13/2022 13:45:01 11/18/2022 16:00:29 Essential hypertension 08636020 I10 continue bumex 2 mg qam 1 mg qpmspirono lactone 25 mg bidmetopro lol 50 mg qdimdur 30 mg qdhydralaz ine 25 mg bidmonitor bp and need to titrate Chest pain 28122297 R07. 9 see HPIno changes to plan of care despite elevated D dimer and tropnot felt to be pleuriticO rdered prn nitro for chest pain Chronic ki dney disease stage 3A 257376258 N18.31 likely moving to end stage with creat of 103 and bun 3.30encour age PO fluidsavoi d nephrotoxi c meds Anxiety 36135814 F41.1 ativan 0.5 mg q 4 hours PRNcontinu e [id number] CHAKA Hawkins [facility] on [address] [place] [address] 11/17/2022 07:53:39 11/19/2022 11:29:11 Chest pain 56207746 R07.9 no chest pain while in ED last night and EKG reassuring no changes to plan of care despite elevated D dimer and tropnot felt to be pleuriticp rn nitro available for chest pain Essential hypertension 94033602 I10 bp normalbume x 2 mg q am, 1 mg q pmspironol actone 25 mg bidmetopro lol 50 mg qdimdur 30 mg qdmonitor bp and adjust meds prn Chronic ki dney disease stage 3A 927910229 N18.31 likely moving to end stage with creat of 103 and bun 3.30encour age PO fluidsavoi d nephrotoxi c medsmonito r renal functionre jerry to nephro if pt and family agree Pain of le ft shoulder joint 9651793797 7412926 M25.512 is chronicno fracture on xray in ED though does have osteophyte s and joint space narrowingc ontinue tizanidine 4 mg qhs 20790220 P[facility]RO [facility]AE [facility] on [address] [place] [address] 11/18/2022 14:37:50 11/20/2022 14:56:24 Chronic combined systolic and diastolic heart failure 9688130425 47476 I50.42 compensate d bumex 2 mg q am, 1 mg q pm spironolac tone 25 mg bid monitor fluid status monitor renal function Anxiety 89672506 F41.1 ativan 0.5 mg q 4 hours PRNpsych prn [id number] Carolina Dennis MD [facility] on [address] [place] [address] 11/24/2022 17:49:54 11/28/2022 12:00:50 Chronic combined systolic and diastolic heart failure 4341834645 87540 I50.42 Appears euvolemic. Continue metoprolol 50 mg qd, bumex 2 mg q am and 1 mg q pm and spironolac tone 25 mg BIDMay need to decrease diuretics depending on renal functionMo nitor resp. status, fluid status, wts and labs. Anxiety 67406126 F41.1 Continue fluoxetine 30 mg qd and lorazepam 0.5 mg q 4 hrs prn.Monito r mood.Psych following. Essential hypertension 83551991 I10 Last check borderline , but otherwise good.Katherin nue bumex 2 mg q am and 1 mg q pm, spironolac tone 25 mg BID, metoprolol 50 mg qd, and imdur 30 mg qd.BP not being checked regularly, will order for M&F.Monito r BP and labs. Pain of le ft shoulder joint 7276810721 2200166 M25.512 Chronic pain with evidence of moderately severe OA per xray.With allergies to APAP, ibuprofen and morphine.W ill continue oxycodone 5 mg q 6 hrs prn.Will use ice, heat and PT and consider referral for steroid injection. Orthostati c hypotension 43223771 I95.1 Happened one time with rehab.No further episodes.M onitor. Acute constipation 9006 K59.09 Improved on increased bowel regimen.Co ntinue bowel meds as ordered.Mo nitor bowel function. Acute hyponatremia 55730 02 E87.1 No labs since 11/13, will reorder weekly labs. Asthenia 79433632 R53.1 Remains deconditio sissy.Contin ues to need PT/OT for strengthen ing, balance, gait training, safety and function.C ontinue fall precaution s.Monitor for safety.Mon itor for needs in terms of outpt services versus LTC. Morbid obesity 121505135 E66.01 Continue to encourage healthy eating.Mon itor. Asthma 756509708 J45.99 8 As above. Depressive disorder 3548 9007 F33.8 see above Chronic pain 99378528 G8 9.29 With renal failure rec for gabapentin is qd.Will change to gabapentin 600 mg qd and continue tizanidine 4 mg qhs, and oxycodone 5 mg q 6 prnMonitor sxs Chronic ob structive pulmonary disease 84046093 J41.1 Combined obstructiv e and restrictiv e disease per PFTS in past.Katherin nue Flovent 110 mcg 2 puffs BID, and albuterol HFA 2 puffs q 4 hrs prn.Monito r resp status. Diabetic p eripheral neuropathy 424424142 E11.42 As above Diabetes mellitus 207095 09 E11.21 Sugars in good control since here. HgA1C was 8.5 in 3Cont inue lantus 50U BID and SSI.Monito r fingerstic ks TID and HgA1C q 3 months. Mixed hyperlipidemia 267 053735 E78.2 Continue simvastati n 20 mg qdMonitor labs yearly Obstructiv e sleep apnea syndrome 50455001 G47.33 Not on CPAP.Consi jo-ann sleep study. Coronary arteriosclerosis 60333419 I25.10 No recent sxs (recent chest pain not thought to be cardiac.)C ontinue meds as above.F/U with cardio prn. Chronic ki dney disease stage 4 534895826 N18.4 No labs since 11/13.With severely elevated BUN.Will order labs for tomorrow.N eeds renal consult.Wi ll be real balancing act with management of CHF and CKD. [id number] Andi Mejia MD [facility] on [address] [place] [address] 11/26/2022 14:50:28 11/28/2022 12:50:15 Acute kidney injury 92476404 N17.8 ARF on CRF stage 3 at baseline however appear to be stage 4improved with IVFmonitor renal functionav oid nephrotoxi c meds as ablenephro consult Chronic ki dney disease stage 3A 116407553 N18.4 see HPImonitor renal function on bumex and spironolac tone for CHFrepeat bmp at f/u with pcp Asthenia 30878007 R53.1 will need 24 hour supervisio n now in place in community Chronic co mbined systolic and diastolic heart failure 9396882775 66742 I50.42 bumex 2 mg qam 1 mg qpmspirono lactone 25 mg bidmonitor respirator y and fluid statusmoni tor renal function with recent arf on crf Coronary arteriosclerosis 86658179 I25.10 metoprolol 50 mg qdASA 81 mg qdsimvasta tin 20 mg qdcontinue d Health Concerns Section Related Observation LastModified by Organization Detai ls LastModified Time None Recorded Concern Status LastModified by Organization Details LastModified Time None Recorded Advance Directives Directive Y: Payers Insurance Date Sequence Insurance Name Policy Number Policy Drake Covered Member ID Drake Member ID Guarantor Name 12/25/2023 1 [place] [facility] Lupisderrick Ana [id number] Lupis Mueller Notes Date Note Type Note [...] yesterday. She appears very anxious. EPIFANIO [address] [facility], [address], [place], [address], [facility] 11/13/2022 14:07:45 3 text/html pt seen today for acute telemedicine visit. last night pt called 911 and sent herself out to [facility] ED stating per nurse that she wasn't [...] to SNF for rehab. CHAKA Hawkins [address] [facility] [facility], [address], [place], [address], [facility] 11/17/2022 13:34:21 3 text/html ROS as noted in the HPI seen today for acute rounding visit, CAOx3 in the day room in her wheelchair, she is weepy saying my legs don't work anymore , chatted withher for a few minutes and she calmed, lungs clear, ate well at lunch PEDRO MONAE NP [address] [facility] [facility], [address], [place], [address], [facility] [email or web address] 11/19/2022 10:31:14 3 text/html This is a 62 yo woman who I am seeing today for a routine MD 60 day reeval rounding visit. She was admitted here on 10/03 after spending several days at the [facility] ED awaiting placement. She had been seen at the [facility] ED several times in the month prior. [...] since she was admitted to this facility. GUEST RELATION OFFICER concurs and [facility] records show this also. pt is eating 75-100% of all her meals. currently on senna 2 qhs and colace daily. pt is making progress with rehab, walking up to 165 feet. ghotra cath recently removed and pt is voiding normally. Carolina Dennis MD [address] [facility], [address], [place], [address], [facility] [email or web address] 11/24/2022 20:21:29 3 text/html Patient is a [...] home. Will require 24/7 supervision with V[employer], FEDERAL JUDICIAL LAW CLERK and meals on wheels in place, will be living with daughter. Discussed with SW. Of note labs were ordered yesterday, called labs for result with significant improvement in bun/cre Andi Mejia MD [address] [place] [address], [address], [place], [place], [address], [facility] 11/26/2022 14:57:47 OBGyn Episode No OBEpisode recorded.
== END 2025-06-06 12:23 | disposition home or self-care (01) ==
LOC: HO.HKA 12:11
PROVIDERS: PCP Physician Assistant; Visit Provider Internal Medicine Hypertension Specialist
DX: I50.22 Chronic systolic (congestive) heart failure (principal)
CPT/HCPCS: 99214

== ENCOUNTER → 2025-06-06 12:10 | Outpatient (BNVA) | payer OTHER, SELFPAY | PROVIDERS: PCP Physician Assistant; Visit Provider Internal Medicine Hypertension Specialist | DX: I50.22 Chronic systolic (congestive) heart failure (principal) | CPT/HCPCS: 99212 ==

== ENCOUNTER 2025-07-04 10:15 | Inpatient (IN) | payer OTHER, SELFPAY ==
[2025-07-04] VITALS (13 sets, daily range): BP systolic 101–151; BP diastolic 40–63; PULSE 83–105; RESP 13–27; TEMP 36.4–36.9; O2SAT 87–97; BMI 50.3; BMI 50.8
--- NOTE | ~2025-07-04 | XR_ITS ---
EXAMINATION: XR CHEST 1 VIEW HISTORY: cough COMPARISON: Comparison is made with the prior examination dated 05/09/2025. FINDINGS: A single AP portable view of the chest performed at 11:13 AM is submitted. The lungs are expanded and clear. There is no pleural effusion, pneumothorax, or pulmonary vascular congestion. The heart is top normal in size. The bones are intact. XR/XR chest 1V IMPRESSION: Borderline cardiomegaly. No acute cardiopulmonary abnormality. Electronically signed by: Song Erickson MD 07/04/2025 11:31 AM EST
--- NOTE | 2025-07-04 11:03 | ECG_ITS ---
Test Reason : sob Blood Pressure : */* mmHG Vent. Rate : 85 BPM Atrial Rate : 85 BPM P-R Int : 162 ms QRS Dur : 98 ms QT Int : 400 ms P-R-T Axes : 75 29 66 degrees QTcB Int : 476 ms Normal sinus rhythm Low voltage QRS Borderline ECG When compared with ECG of 09-May-2025 18:26, No significant change was found Referred By: Dacia Cassidy Electronically Signed By: Orlando Hebert
--- NOTE | 2025-07-04 11:05 | ED.URI ---
HPI - URI/Sore Throat General Chief Complaint: Dyspnea Stated Complaint: SOB Time Seen by Provider: 07/04/25 12:11 Source: patient Mode of arrival: ambulatory Limitations: no limitations History of Present Illness ED Provider: SORAIDA FRASER PA-C HPI Narrative: 61-year-old female with pmhx significant for morbid obesity, asthma/COPD on supplemental O2 prn, DANIEL not on CPAP, arthritis, vertigo, DM, cardiomyopathy, CHF with an EF of 40%, HTN, CKD, presents to the ED today as an outpatient response due to shortness of breath. She reports productive cough and increasing shortness of breath x1 week. Endorses central chest pain with coughing only. States she feels generally unwell with chills. 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 She states that she was on her way to her oracle database analyst today when she felt too short of breath to continue walking to the office. An outpatient response was called and she was brought to our ED. Reports compliance with all of her medications. She is not currently on any antibiotics or steroids. She has been using her inhaler at home without relief. Denies recent travel or long car rides. On arrival to triage, patient was noted to be satting 90% on RA - placed on 2L NC. Related Data Home Medications ?Medication ?Instructions ?Recorded ?Confirmed insulin syringe-needle U-100 1 mL 09/27/22 06/06/25 31 gauge x 5/16 (BD Insulin Syringe Ultra-Fine) metoprolol succinate 50 mg 50 mg PO DAILY 09/21/23 06/06/25 tablet,extended release 24 hr prazosin 1 mg capsule 1 mg PO BEDTIME 09/21/23 06/06/25 buspirone 30 mg tablet 30 mg PO BID 01/31/25 06/06/25 allopurinol 100 mg tablet 100 mg PO DAILY 02/01/25 06/06/25 clonidine HCl 0.1 mg tablet 0.1 mg PO TID 02/01/25 06/06/25 duloxetine 60 mg capsule,delayed 60 mg PO DAILY 02/01/25 06/06/25 release insulin glargine 100 unit/mL (3 60 unit subcut BEDTIME 02/01/25 06/06/25 mL) subcutaneous pen (Lantus Solostar U-100 Insulin) pantoprazole 20 mg tablet,delayed 20 mg PO BEDTIME@1800 02/01/25 06/06/25 release tirzepatide (weight loss) 5 mg/0.5 5 mg subcut WE 02/01/25 06/06/25 mL subcutaneous pen injector (Zepbound) linaclotide 290 mcg capsule 290 mcg PO DAILY 05/10/25 06/06/25 (Linzess) risperidone 1 mg tablet 1 mg PO BEDTIME 05/10/25 06/06/25 sertraline 25 mg tablet 75 mg PO DAILY 05/10/25 06/06/25 trazodone 150 mg tablet 150 - 300 mg PO BEDTIME PRN 05/10/25 06/06/25 insomnia Previous Rx's ?Medication ?Instructions ?Recorded blood-glucose meter (FreeStyle #1 ea 09/02/22 Lite Meter kit) BD Insulin Syringe (half unit) 0.3 #400 ea 04/27/24 mL 31 gauge x 5/16 (insulin syr/ndl U100 half dionna) FreeStyle [place] 3 [place] #1 ea 04/27/24 (blood-glucose,parts lister,cont) isosorbide mononitrate 30 mg 60 mg (2 x 30 mg) PO DAILY #180 04/27/24 tablet,extended release 24 hr tabs FreeStyle Lancets 28 gauge #200 ea 06/01/24 (lancets) FreeStyle Lite Strips (blood sugar #200 ea 06/01/24 diagnostic) pen needle, diabetic 32 gauge x #200 ea 06/01/2412/02 (Comfort EZ Pen [place]) Comfort EZ Pen [place] 31 gauge x #200 ea 06/02/2412/02 (pen needle, diabetic) insulin lispro 100 unit/mL 4 unit subcut TID #10 mL 08/03/24 subcutaneous solution (Humalog U-100 Insulin) lorazepam 0.5 mg tablet 0.5 mg PO TID PRN anxiety #90 tabs 08/03/24 ADULT PULL UP XL #360 ea 08/24/24 Chux #200 ea 08/24/24 Commode bags #4 ea 08/24/24 nitrile gloves #360 ea 08/24/24 pressure relief cushion #1 ea 08/24/24 insulin syringe-needle U-100 1 mL #200 ea 09/20/24 31 gauge x 5/16 (BD Insulin Syringe Ultra-Fine) pen needle, diabetic 32 gauge x #1,200 ea 09/28/2432 gabapentin 400 mg capsule 400 mg PO BID@0900,1500 #180 caps 12/19/24 FreeStyle Lucy 3 Sensor #6 ea 12/28/24 (blood-glucose sensor) simvastatin 20 mg tablet 20 mg PO BEDTIME #90 tabs 03/08/25 bumetanide 2 mg tablet 2 mg PO DAILY 90 days #90 tabs 03/28/25 metolazone 2.5 mg tablet 2.5 mg PO Q OTHER DAY #4 tabs 05/27/25 alcohol swabs (Alcohol Pads) 1 pad topical .8 times daily #200 05/31/25 ea fluconazole 150 mg tablet 150 mg PO Q3D 2 doses #2 tabs 06/07/25 Allergies Allergy/AdvReac Type Severity Reaction Status Date / Time ibuprofen Allergy Intermediate vomiting, Verified 07/04/25 11:05 itching acetaminophen (Tylenol) Allergy Unknown Unknown Verified 07/04/25 11:05 codeine AdvReac Severe Anaphylaxis Verified 07/04/25 11:05 morphine AdvReac Intermediate vomiting Verified 07/04/25 11:05 vancomycin AdvReac Intermediate Itching Verified 07/04/25 11:05 Review of Systems Review of Systems: Yes all other systems are reviewed and are negative PMFSH Past Medical History Attestation statement: The following information was validated with the patient. Source: old records reviewed and nursing notes reviewed Medical History (Updated 07/04/25 @ 16:51 by GUADALUPE Watts) Panic disorder Diabetic nephropathy Cataracts, bilateral DANIEL (obstructive sleep apnea) COPD (chronic obstructive pulmonary disease) NICM (nonischemic cardiomyopathy) Hypertension Chronic respiratory failure with hypoxia Asthma Obesity hypoventilation syndrome CKD (chronic kidney disease) stage 3, GFR 30-59 ml/min Acute on chronic combined systolic and diastolic CHF (congestive heart failure) Morbid obesity Diabetic neuropathy, painful Depression Diabetes Surgical History History of surgery Hx of cholecystectomy Family History Family History Mother HTN (hypertension) Diabetes CAD (coronary artery disease) Father HTN (hypertension) Diabetes CAD (coronary artery disease) Maternal Grandmother CAD (coronary artery disease) Social History Social History Household Members: None Household Members Other:: GRANDSON Housing: Apartment Housing Other:: with strategic partner development manager Do you presently have visiting nurse or other home services: Yes Alcohol intake: current Alcohol intake frequency: holidays/special occasions only Alcohol type: wine Comment: 1:1 Patient Tobacco Use Status: Former Tobacco user Tobacco use type: Cigarette Years Smoked: 38 e-Cigarette/Vaping Use: Never Used Second Hand Smoke Exposure: No Substance Use Type: Former Substance User Advance Directives: Yes Advance Directives on File: Yes Advance Directives Date on File: 04/30/23 service: No Current occupational status: disabled Current occupation: rt handed Cognitive needs: Yes (walker, cane) Hearing needs: No Vision needs: Yes (Rx glasses) Physical Exam Vital Signs: Vital Signs: Last Vital Signs Temp 98 F 07/04/25 14:04 Pulse 83 07/04/25 14:24 Resp 15 07/04/25 14:24 BP 116/40 L 07/04/25 14:04 Pulse Ox 87 L 07/04/25 15:53 O2 Del Method Nasal Cannula 07/04/25 14:04 O2 Flow Rate 1 07/04/25 14:04 BMI result Body Mass Index 50.3 vital signs stable General: Well appearing, in no acute distress. Skin: Warm, dry, intact. No rashes or lesions. Head: Normocephalic, atraumatic. EENT: Hearing is intact b/l. Conjunctiva clear. Sclera is anicteric. PERRLA. EOM intact. Moist mucous membranes.? Cardiac: Chest wall symmetric. RRR Lungs: no respiratory distress. Normal respiratory effort, no accessory muscle use. No tripoding. diffuse inspiratory and expiratory wheezes throughout, no crackles. Abdomen: Soft, non-tender, non-distended. No rebound tenderness or guarding. Positive BS x4. Back: No midline spinous or paraspinal tenderness. No step off deformity. Ext: 1+pitting edema to b/l LEs. no calf tenderness b/l. Neuro: AOx3. Normal speech. Ambulating with steady gait. Psych: Appropriate mood and affect. Responds appropriately to questions. Course Course Course Narrative: 61-year-old female with past medical history COPD not on home O2 currently she uses as needed, arthritis vertigo, diabetes, CHF with an EF of 40%, hypertension, DANIEL not on CPAP she was coming for a pulmonary appointment today but then was a rapid response due to shortness of breath. She reports cough with sputum production chills and not feeling well states everyone in her house is sick. She is taking all of her medications as prescribed. She is not currently on any antibiotic or prednisone. She reports no recent travel. At this time we are going to obtain chest x-ray, basic labs EKG and viral panel. She is 90% on arrival she will be placed on nasal cannula 2 L this is a RAPID medical screening exam the rest of the history and physical exam is to be done by the main provider. 11:06 AM 07/04/2025 (KRISHNA SYKES): Reevaluation(s) Reevaluation #1: CBC without leukocytosis or left shift. Chronic normocytic anemia, H and H stable when compared to priors. Chemistry without acute electrolyte abnormality requiring intervention. Acute on chronic kidney injury with BUN 32 and creatinine 2.21. Random glucose 150, no anion gap. trop stable x2. NT pro BNP 724 which is around her baseline. viral swabs negative. respiratory panel negative. cxr showing borderline cardiomegaly, no infiltrate or consolidation to suggest pneumonia. no pulmonary edema. ekg showing nsr without acute ischemic changes or st elevations. > patient treated with updraft, Solu-Medrol and magnesium with minimal improvement in symptoms. She desatted to 87% on room air during ambulatory O2 trial. She continues to require oxygen. Given hypoxic respiratory failure in the setting of COPD exacerbation, plan to admit to Medicine for further management. Patient is agreeable. Ceftriaxone ordered. Medications Administered Discontinued Medications Generic Name Dose Route Start Last Admin Trade Name Freq PRN Reason Stop Dose Admin Albuterol Sulfate 2.5 mg/ 5 mg 07/04/25 14:18 07/04/25 14:23 Albuterol Sulfate 2.5 mg INHALE 07/04/25 14:19 5 mg ONCE ONE Administration Albuterol Sulfate 2.5 mg/ 0 mg 07/04/25 12:42 07/04/25 12:46 Albuterol/Ipratropium 3 ml INHALE 07/04/25 12:43 5 dose ONCE ONE Administration Magnesium Sulfate 2 gm in 50 mls @ 150 mls/hr 07/04/25 12:21 07/04/25 14:06 Magnesium Sulfate/H2o IV 07/04/25 12:40 Infused ONCE ONE Infusion Sodium Chloride 1,000 mls @ 500 mls/hr 07/04/25 12:45 07/04/25 13:08 Ns IV 07/04/25 14:44 500 mls/hr .Q2H HI Administration Methylprednisolone Sodium Succinate 80 mg 07/04/25 12:21 07/04/25 12:34 Methylprednisolone Sod Succ 125 Mg/2 Ml Vial IVPUSH 07/04/25 12:22 80 mg ONCE ONE Administration Medical Decision Making Medical Decision Making MDM Narrative: 61-year-old female with pmhx significant for morbid obesity, asthma/COPD on supplemental O2 prn, DANIEL not on CPAP, arthritis, vertigo, DM, cardiomyopathy, CHF with an EF of 40%, HTN, CKD, presents to the ED today as an outpatient response due to shortness of breath. patient is satting 90% on RA at rest - placed on 2L NC. on exam, no respiratory distress. Normal respiratory effort, no accessory muscle use. No tripoding. diffuse inspiratory and expiratory wheezes throughout, no crackles. 1+ pitting edema to b/l LEs, no calf tenderness b/l. Differential diagnosis includes viral syndrome, pneumonia, bronchitis, COPD exacerbation, arrhythmia, ACS, CHF Plan for labs, cxr, ekg, bronch treatment, re-evaluation. Differential Diagnosis Differential Diagnoses: The differential diagnosis associated with the presentation includes as above. Admission/Observation Consideration of admission/observation: Escalation of care including admission/observation considered Patient admitted to medicine for management of COPD exacerbation Consult Healthcare Provider Management of the patient was discussed with: Hospitalist (dr. enamorado) Lab Data [facility] Lab Attestation statement: I reviewed the patient's lab results. as above 07/04/25 11:31 07/04/25 11:31 Labs: Lab Results 07/04/25 07/04/25 07/04/25 Range/Units 11:31 11:32 11:40 WBC 7.1 (4.8-10.8) X10*3/uL RBC 3.63 L (4.20-5.50) X10*6/uL Hgb 10.6 L (12.0-16.0) g/dl Hct 35.0 L (37.0-47.0) % MCV 96.4 (80.0-98.0) fL MCH 29.2 (27.0-33.0) pg MCHC 30.3 L (31.0-35.0) g/dl RDW 14.3 (11.0-16.0) % Plt Count 140 L (160-400) X10*3/uL MPV 10.0 (9.4-12.3) fL Immature Gran % (Auto) 0.6 H (0.0-0.4) % Neut % (Auto) 67.3 (45-73) % Lymph % (Auto) 15.7 L (20-40) % [place] % (Auto) 12.3 H (2-11) % Eos % (Auto) 3.7 (0-4) % Baso % (Auto) 0.4 (0-2) % Lymph # (Auto) 1.1 L (1.2-4.9) X10*3/uL [place] # (Auto) 0.9 (0.1-1.2) X10*3/uL Eos # (Auto) 0.3 (0.0-0.4) X10*3/uL Baso # (Auto) 0.0 (0.0-0.2) X10*3/uL Abs Immat Gran (auto) 0.04 H (0.00-0.03) X10*3/uL Absolute Neuts (auto) 4.8 (2.0-8.3) x10*3/uL Absolute Nucleated RBC 0.000 (0.0-0.012) X10*3/uL Nucleated RBC % (auto) 0.0 (0.0-0.2) /100WBC VBG pH 7.42 (7.32-7.43) VBG pCO2 63 mmHg VBG pO2 70 mmHg VBG HCO3 41 H (22-26) mmol/L VBG O2 Saturation 91.0 % VBG Base Excess 14.0 mmol/L Sodium 143 (135-145) mmol/L Potassium 4.9 (3.3-5.1) mmol/L Chloride 99 (96-108) mmol/L Carbon Dioxide 34 H (22-29) mmol/L Anion Gap 15 (12-20) BUN 32 H (9-16) mg/dL Creatinine 2.21 H (0.5-1.4) mg/dL Estim Creat Clear Calc 32.4 Estimated GFR 22 Random Glucose 158 H (60-115) mg/dL Calcium 8.6 (8.4-10.2) mg/dL Magnesium 1.9 (1.6-2.6) mg/dL Total Bilirubin 0.3 (0.0-1.0) mg/dL Direct Bilirubin 0.1 (0.0-0.5) mg/dL AST 16 (5-31) U/L ALT 6 (0-31) U/L Alkaline Phosphatase 94 (39-117) U/L Troponin I High Sens 22.1 H D (<3.5-17.0) ng/L NT-Pro-B Natriuret Pep 724.3 H (<300) pg/mL Total Protein 6.3 L (6.5-8.0) g/dL Albumin 4.1 (3.5-5.0) g/dL Respiratory Panel [place] Adenovirus (Rapid PCR) (Not Detect.) B.pert (TEM-PCR) (Not Detect.) B.parapertussis DNA PCR (Not Detect.) C. pneumoniae DNA (PCR) (Not Detect.) Coronavirus OC43 (PCR) (Not Detect.) Coronavirus HKU1 (PCR) (Not Detect.) Coronavirus 229E (PCR) (Not Detect.) Coronavirus NL63 (PCR) (Not Detect.) Human Metapneumovir PCR (Not Detect.) Influenza A (RT-PCR) (Not Detect.) Influenza A (H1) PCR (Not Detect.) Influ A (H1/09) PCR (Not Detect.) Influenza A (H3) PCR (Not Detect.) Influenza Type A (PCR) NEGATIVE (Negative) Influenza B (RT-PCR) (Not Detect.) Influenza Type B (PCR) NEGATIVE (Negative) M. pneumoniae (PCR) (Not Detect.) Parainfluenza 1 (PCR) (Not Detect.) Parainfluenza 2 (PCR) (Not Detect.) Parainfluenza 3 (PCR) (Not Detect.) Parainfluenza 4 (PCR) (Not Detect.) RSV (PCR) (Not Detect.) RSV RNA Qual (PCR) NEGATIVE (Negative) Entero/Rhino (PCR) (Not Detect.) SARS-CoV-2 RNA (RT-PCR) NEGATIVE (Negative) 07/04/25 07/04/25 Range/Units 12:55 14:19 WBC (4.8-10.8) X10*3/uL RBC (4.20-5.50) X10*6/uL Hgb (12.0-16.0) g/dl Hct (37.0-47.0) % MCV (80.0-98.0) fL MCH (27.0-33.0) pg MCHC (31.0-35.0) g/dl RDW (11.0-16.0) % Plt Count (160-400) X10*3/uL MPV (9.4-12.3) fL Immature Gran % (Auto) (0.0-0.4) % Neut % (Auto) (45-73) % Lymph % (Auto) (20-40) % [place] % (Auto) (2-11) % Eos % (Auto) (0-4) % Baso % (Auto) (0-2) % Lymph # (Auto) (1.2-4.9) X10*3/uL [place] # (Auto) (0.1-1.2) X10*3/uL Eos # (Auto) (0.0-0.4) X10*3/uL Baso # (Auto) (0.0-0.2) X10*3/uL Abs Immat Gran (auto) (0.00-0.03) X10*3/uL Absolute Neuts (auto) (2.0-8.3) x10*3/uL Absolute Nucleated RBC (0.0-0.012) X10*3/uL Nucleated RBC % (auto) (0.0-0.2) /100WBC VBG pH (7.32-7.43) VBG pCO2 mmHg VBG pO2 mmHg VBG HCO3 (22-26) mmol/L VBG O2 Saturation % VBG Base Excess mmol/L Sodium (135-145) mmol/L Potassium (3.3-5.1) mmol/L Chloride (96-108) mmol/L Carbon Dioxide (22-29) mmol/L Anion Gap (12-20) BUN (9-16) mg/dL Creatinine (0.5-1.4) mg/dL Estim Creat Clear Calc Estimated GFR Random Glucose (60-115) mg/dL Calcium (8.4-10.2) mg/dL Magnesium (1.6-2.6) mg/dL Total Bilirubin (0.0-1.0) mg/dL Direct Bilirubin (0.0-0.5) mg/dL AST (5-31) U/L ALT (0-31) U/L Alkaline Phosphatase (39-117) U/L Troponin I High Sens 22.9 H (<3.5-17.0) ng/L NT-Pro-B Natriuret Pep (<300) pg/mL Total Protein (6.5-8.0) g/dL Albumin (3.5-5.0) g/dL Respiratory Panel Flor See Note Adenovirus (Rapid PCR) Not Detected (Not Detect.) B.pert (TEM-PCR) Not Detected (Not Detect.) B.parapertussis DNA PCR Not Detected (Not Detect.) C. pneumoniae DNA (PCR) Not Detected (Not Detect.) Coronavirus OC43 (PCR) Not Detected (Not Detect.) Coronavirus HKU1 (PCR) Not Detected (Not Detect.) Coronavirus 229E (PCR) Not Detected (Not Detect.) Coronavirus NL63 (PCR) Not Detected (Not Detect.) Human Metapneumovir PCR Not Detected (Not Detect.) Influenza A (RT-PCR) Not Detected (Not Detect.) Influenza A (H1) PCR Not Detected (Not Detect.) Influ A (H1/09) PCR Not Detected (Not Detect.) Influenza A (H3) PCR Not Detected (Not Detect.) Influenza Type A (PCR) (Negative) Influenza B (RT-PCR) Not Detected (Not Detect.) Influenza Type B (PCR) (Negative) M. pneumoniae (PCR) Not Detected (Not Detect.) Parainfluenza 1 (PCR) Not Detected (Not Detect.) Parainfluenza 2 (PCR) Not Detected (Not Detect.) Parainfluenza 3 (PCR) Not Detected (Not Detect.) Parainfluenza 4 (PCR) Not Detected (Not Detect.) RSV (PCR) Not Detected (Not Detect.) RSV RNA Qual (PCR) (Negative) Entero/Rhino (PCR) Not Detected (Not Detect.) SARS-CoV-2 RNA (RT-PCR) Not Detected (Negative) Independent Interpretation I performed an independent interpretation of an: EKG and Plain X-Ray Interpretation: EKG showing normal sinus rhythm, rate of 85 beats per minute, QT 400, QTC 476, no acute ischemic changes or ST elevations cxr without infiltrate or consolidation Radiology Impression Discussion of test interpretation with radiology: I have reviewed the radiologist's reading. Radiologist Impression: Procedure(s): XR chest 1V Accession Number(s): [id number] cc: Dacia Cassidy DO; Celia Horn~ Reason for Exam: cough EXAMINATION: XR CHEST 1 VIEW HISTORY: cough COMPARISON: Comparison is made with the prior examination dated 05/09/2025. FINDINGS: A single AP portable view of the chest performed at 11:13 AM is submitted. The lungs are expanded and clear. There is no pleural effusion, pneumothorax, or pulmonary vascular congestion. The heart is top normal in size. The bones are intact. XR/XR chest 1V IMPRESSION: Borderline cardiomegaly. No acute cardiopulmonary abnormality. Electronically signed by: Song Erickson MD 07/04/2025 11:31 AM [facility] External Record Review External record reviewed: Inpatient record Prescription Management I considered prescription management with: Antibiotic Chronic Conditions Patient?s care impacted by: Other (COPD) Social Determinants Patient?s care significantly limited by Social Determinants of Health including: Other Social Determinant of Health Critical Care Time Critical Care Time Critical Care Time: Yes Total Critical Care Time: 38 Attestation: Critical care time in the amount of 38 minutes has been provided to the patient in terms of direct patient care, frequent reevaluation, consultation with hospitalist, review and interpretation of medical data and results, and management of potentially life-threatening conditions. This is all outside of any medical procedures. Discharge Plan Discharge Clinical Impression: COPD exacerbation, Acute hypoxic respiratory failure, Hypercarbia, Acute on chronic kidney failure Patient Disposition: Admitted As Inpatient Print Language: Gibraltarian
[2025-07-04 11:41] LABS: MANUAL DIFF FLAG NO
[2025-07-04 11:43] LABS: Venous Blood Gas Refer to POC result
[2025-07-04 11:44] LABS: VBG HCO3 41 mmol/L (22-26); VBG O2 % Saturation 91.0 %
[2025-07-04 11:44] LABS: Hematocrit 35.0 % (37.0-47.0); Hemoglobin 10.6 g/dl (12.0-16.0); Imm Gran Abs Auto 0.04 X10*3/uL (0.00-0.03); Imm Gran Pct Auto 0.6 % (0.0-0.4); Lymphocytes Absolute Auto 1.1 X10*3/uL (1.2-4.9); Mean Corpuscular HGB Conc 30.3 g/dl (31.0-35.0); Mean Corpuscular Hemoglobin 29.2 pg (27.0-33.0); Mean Corpuscular Volume 96.4 fL (80.0-98.0); NRBC Abs Auto 0.000 X10*3/uL (0.0-0.012); NRBC Pct Auto 0.0 /100WBC (0.0-0.2); Platelet Count 140 X10*3/uL (160-400); Red Blood Count 3.63 X10*6/uL (4.20-5.50); White Blood Count 7.1 X10*3/uL (4.8-10.8)
[2025-07-04 12:07] LABS: Alanine Aminotransferase 6 U/L (0-31); Albumin Level 4.1 g/dL (3.5-5.0); Alkaline Phosphatase 94 U/L (39-117); Anion Gap 15 (12-20); Aspartate Amino Transferase 16 U/L (5-31); Blood Urea Nitrogen 32 mg/dL (9-16); Calcium 8.6 mg/dL (8.4-10.2); Carbon Dioxide 34 mmol/L (22-29); Chloride 99 mmol/L (96-108); Creatinine Clr Calc Pharmacy 32.4; Estimated Glomerular Filt Rate 22; Magnesium 1.9 mg/dL (1.6-2.6); Potassium 4.9 mmol/L (3.3-5.1); Sodium 143 mmol/L (135-145); Total Protein 6.3 g/dL (6.5-8.0)
[2025-07-04 12:11] LABS: NT Pro B Type Natriuretic Pept 724.3 pg/mL (<300); Troponin-I High Sensitivity 22.1 ng/L (<3.5-17.0)
[2025-07-04 12:28] LABS: Resp Syncy Virus RNA Qual PCR NEGATIVE (Negative); SARS COV2 PCR INHOUSE NEGATIVE (Negative)
[2025-07-04] MEDS: Magnesium Sulfate/H2O 2 GM/50 ML PIGGYBACK IV (12:38)
[2025-07-04] MEDS: Albuterol Sulfate 2.5 MG, Albuterol/Iprat 2.5/0.5MG 3 ML 3 ML INHALE (12:46)
[2025-07-04 13:56] LABS: Chlamydia pneumoniae PCR Not Detected (Not Detect.); Coronavirus 229E PCR Not Detected (Not Detect.); Coronavirus HKU1 PCR Not Detected (Not Detect.); Coronavirus NL63 PCR Not Detected (Not Detect.); Coronavirus OC43 PCR Not Detected (Not Detect.); RSV PCR Not Detected (Not Detect.); Rhino/Enterovirus PCR Not Detected (Not Detect.)
[2025-07-04 14:11] LABS: SARS-CoV-2 PCR Not Detected (Not Detect.)
[2025-07-04 14:12] LABS: Influenza A H1 PCR Not Detected (Not Detect.); Influenza A H1-2009 PCR Not Detected (Not Detect.); Influenza A H3 PCR Not Detected (Not Detect.)
[2025-07-04] MEDS: Albuterol Sulfate 2.5 MG, Albuterol Sulfate (0.083%) 2.5 MG 5 MG INHALE (14:23)
[2025-07-04 14:56] LABS: Troponin-I High Sensitivity 22.9 ng/L (<3.5-17.0)
--- NOTE | 2025-07-04 16:38 | PM.IMHP ---
History of Present Illness Date of Service: 07/26/25 Chief Complaint: Shortness of breath 61-year-old female with history of asthma/copd on oxygen, daniel, cmp or CHF presented to the ED from her pulmonology office. An outpatient response was called and patient was brought to the ED. She reported a productive cough and increased shortness of breath. She also endorses central chest pain while coughing. 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 She denied chest pain, nausea, vomiting, diarrhea, recent travel. CXR negative for consolidation or effusion. RPP negative. Reports compliance with all of her medications. She will be admitted for acute asthma exacerabtion. Review of Systems Review of Systems: Denies any recent fever chills or decrease in appetite respiratory See HPI cardiovascular Denied chest pain gastrointestinal denies any dysphagia abdominal pain nausea vomiting or diarrhea genitourinary denies any dysuria frequency or hematuria musculoskeletal denies any joint pain or swelling neuropsych denies any weakness or seizures all other systems reviewed are negative [facility] Medical History (Updated 07/04/25 @ 16:51 by GUADALUPE Watts) Panic disorder Diabetic nephropathy Cataracts, bilateral DANIEL (obstructive sleep apnea) COPD (chronic obstructive pulmonary disease) NICM (nonischemic cardiomyopathy) Hypertension Chronic respiratory failure with hypoxia Asthma Obesity hypoventilation syndrome CKD (chronic kidney disease) stage 3, GFR 30-59 ml/min Acute on chronic combined systolic and diastolic CHF (congestive heart failure) Morbid obesity Diabetic neuropathy, painful Depression Diabetes Family History Mother HTN (hypertension) Diabetes CAD (coronary artery disease) Father HTN (hypertension) Diabetes CAD (coronary artery disease) Maternal Grandmother CAD (coronary artery disease) Surgical History History of surgery Hx of cholecystectomy Social History Household Members: None Household Members Other:: GRANDSON Housing: Apartment Housing 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 Do you presently have visiting nurse or other home services: Yes Alcohol intake: current Alcohol intake frequency: holidays/special occasions only Alcohol type: wine Comment: 1:1 Patient Tobacco Use Status: Former Tobacco user Tobacco use type: Cigarette Years Smoked: 38 e-Cigarette/Vaping Use: Never Used Second Hand Smoke Exposure: No Substance Use Type: Former Substance User Advance Directives: Yes Advance Directives on File: Yes Advance Directives Date on File: 04/30/23 service: No Current occupational status: disabled Current occupation: rt handed Cognitive needs: Yes (walker, cane) Hearing needs: No Vision needs: Yes (Rx glasses) Meds Allergies Allergy/AdvReac Type Severity Reaction Status Date / Time ibuprofen Allergy Intermediate vomiting, Verified 07/04/25 11:05 itching acetaminophen (Tylenol) Allergy Unknown Unknown Verified 07/04/25 11:05 codeine AdvReac Severe Anaphylaxis Verified 07/04/25 11:05 morphine AdvReac Intermediate vomiting Verified 07/04/25 11:05 vancomycin AdvReac Intermediate Itching Verified 07/04/25 11:05 Home Medications ?Medication ?Instructions ?Recorded ?Confirmed ?Last Taken ?Type insulin syringe-needle U-100 1 mL 09/27/22 06/06/25 Unknown History 31 gauge x 5/16 (BD Insulin Syringe Ultra-Fine) metoprolol succinate 50 mg 50 mg PO DAILY 09/21/23 06/06/25 01/31/25 History tablet,extended release 24 hr prazosin 1 mg capsule 1 mg PO BEDTIME 09/21/23 06/06/25 01/30/25 History buspirone 30 mg tablet 30 mg PO BID 01/31/25 06/06/25 01/31/25 History allopurinol 100 mg tablet 100 mg PO DAILY 02/01/25 06/06/25 01/31/25 History clonidine HCl 0.1 mg tablet 0.1 mg PO TID 02/01/25 06/06/25 01/31/25 History duloxetine 60 mg capsule,delayed 60 mg PO DAILY 02/01/25 06/06/25 01/31/25 History release insulin glargine 100 unit/mL (3 60 unit subcut BEDTIME 02/01/25 06/06/25 01/30/25 History mL) subcutaneous pen (Lantus Solostar U-100 Insulin) pantoprazole 20 mg tablet,delayed 20 mg PO BEDTIME@1800 02/01/25 06/06/25 01/30/25 History release tirzepatide (weight loss) 5 mg/0.5 5 mg subcut WE 02/01/25 06/06/25 01/25/25 History mL subcutaneous pen injector (Zepbound) linaclotide 290 mcg capsule 290 mcg PO DAILY 05/10/25 06/06/25 Unknown History (Abdulkadir) risperidone 1 mg tablet 1 mg PO BEDTIME 05/10/25 06/06/25 Unknown History sertraline 25 mg tablet 75 mg PO DAILY 05/10/25 06/06/25 Unknown History trazodone 150 mg tablet 150 - 300 mg PO BEDTIME PRN 05/10/25 06/06/25 Unknown History insomnia Physical Exam Vital Signs and Narrative: Vital Signs: Last Vital Signs Temp 98 F 07/04/25 14:04 Pulse 83 07/04/25 14:24 Resp 15 07/04/25 14:24 BP 116/40 L 07/04/25 14:04 Pulse Ox 87 L 07/04/25 15:53 O2 Del Method Nasal Cannula 07/04/25 14:04 O2 Flow Rate 1 07/04/25 14:04 BMI result Body Mass Index 50.3 Appearing in no acute distress head is normocephalic atraumatic eyes pupils are PERRLA sclera is anicteric mouth throat mucous membranes are intact and moist neck is supple no lymphadenopathy, no JVD noted lung sounds are clear to auscultation heart regular rate rhythm, clear S1, S2 positive bowel sounds, abdomen is soft, nontender neuro patient is alert x3, no focal deficits Results Labs 07/04/25 11:31 07/04/25 11:31 Labs: Laboratory Results - last 24 hr 07/04/25 07/04/25 07/04/25 11:31 11:32 11:40 MCV 96.4 MCH 29.2 MCHC 30.3 L RDW 14.3 Plt Count 140 L MPV 10.0 Immature Gran % (Auto) 0.6 H Neut % (Auto) 67.3 Lymph % (Auto) 15.7 L Blaine % (Auto) 12.3 H Eos % (Auto) 3.7 Baso % (Auto) 0.4 Lymph # (Auto) 1.1 L Blaine # (Auto) 0.9 Eos # (Auto) 0.3 Baso # (Auto) 0.0 Abs Immat Gran (auto) 0.04 H Absolute Neuts (auto) 4.8 Absolute Nucleated RBC 0.000 Nucleated RBC % (auto) 0.0 VBG pH 7.42 VBG pCO2 63 VBG pO2 70 VBG HCO3 41 H VBG O2 Saturation 91.0 VBG Base Excess 14.0 Anion Gap 15 Estim Creat Clear Calc 32.4 Estimated GFR 22 Random Glucose 158 H Calcium 8.6 Magnesium 1.9 Total Bilirubin 0.3 Direct Bilirubin 0.1 AST 16 ALT 6 Alkaline Phosphatase 94 Troponin I High Sens 22.1 H D NT-Pro-B Natriuret Pep 724.3 H Total Protein 6.3 L Albumin 4.1 Respiratory Panel Flor Adenovirus (Rapid PCR) B.pert (TEM-PCR) B.parapertussis DNA PCR C. pneumoniae DNA (PCR) Coronavirus OC43 (PCR) Coronavirus HKU1 (PCR) Coronavirus 229E (PCR) Coronavirus NL63 (PCR) Human Metapneumovir PCR Influenza A (RT-PCR) Influenza A (H1) PCR Influ A (H1/09) PCR Influenza A (H3) PCR Influenza Type A (PCR) NEGATIVE Influenza B (RT-PCR) Influenza Type B (PCR) NEGATIVE M. pneumoniae (PCR) Parainfluenza 1 (PCR) Parainfluenza 2 (PCR) Parainfluenza 3 (PCR) Parainfluenza 4 (PCR) RSV (PCR) RSV RNA Qual (PCR) NEGATIVE Entero/Rhino (PCR) SARS-CoV-2 RNA (RT-PCR) NEGATIVE 07/04/25 07/04/25 12:55 14:19 MCV MCH MCHC RDW Plt Count MPV Immature Gran % (Auto) Neut % (Auto) Lymph % (Auto) Blaine % (Auto) Eos % (Auto) Baso % (Auto) Lymph # (Auto) Blaine # (Auto) Eos # (Auto) Baso # (Auto) Abs Immat Gran (auto) Absolute Neuts (auto) Absolute Nucleated RBC Nucleated RBC % (auto) VBG pH VBG pCO2 VBG pO2 VBG HCO3 VBG O2 Saturation VBG Base Excess Anion Gap Estim Creat Clear Calc Estimated GFR Random Glucose Calcium Magnesium Total Bilirubin Direct Bilirubin AST ALT Alkaline Phosphatase Troponin I High Sens 22.9 H NT-Pro-B Natriuret Pep Total Protein Albumin Respiratory Panel Flor See Note Adenovirus (Rapid PCR) Not Detected B.pert (TEM-PCR) Not Detected B.parapertussis DNA PCR Not Detected C. pneumoniae DNA (PCR) Not Detected Coronavirus OC43 (PCR) Not Detected Coronavirus HKU1 (PCR) Not Detected Coronavirus 229E (PCR) Not Detected Coronavirus NL63 (PCR) Not Detected Human Metapneumovir PCR Not Detected Influenza A (RT-PCR) Not Detected Influenza A (H1) PCR Not Detected Influ A (H1/09) PCR Not Detected Influenza A (H3) PCR Not Detected Influenza Type A (PCR) Influenza B (RT-PCR) Not Detected Influenza Type B (PCR) M. pneumoniae (PCR) Not Detected Parainfluenza 1 (PCR) Not Detected Parainfluenza 2 (PCR) Not Detected Parainfluenza 3 (PCR) Not Detected Parainfluenza 4 (PCR) Not Detected RSV (PCR) Not Detected RSV RNA Qual (PCR) Entero/Rhino (PCR) Not Detected SARS-CoV-2 RNA (RT-PCR) Not Detected Imaging Radiologist's Impressions: Impressions Chest X-Ray 07/04/25 11:15 IMPRESSION: Borderline cardiomegaly. No acute cardiopulmonary abnormality. Electronically signed by: Song Erickson MD 07/04/2025 11:31 AM [facility] Assessment and Plan (1) Asthma: Status: Acute Plan 65 year old women admitted with acute hypoxic respiratory failure secondary to COPD exacerbation Acute on chronic respiratory failure Chest x-ray with no consolidation or effusion IV solumedrol scheduled duonebs check RPP continue supplemental oxygen to keep oxygen saturation> 90% FELICIA on CKD stage 3 above baseline gentle fluid hydration Hypertension stable blood pressure Diabetes mellitus type 2 Sliding scale, ADA diet Anxiety/Mental health Continue home medications Congestive heart failure with reduced ejection fraction No acute exacerbation Super morbid obesity. BMI 50.3 Discussed importance of weight management as this may be contributing to worsening of other comorbidities Obstructive sleep apnea Not on CPAP DVT prophylaxis with heparin Full code Quality Stroke Does the patient have a stroke diagnosis?: No VTE Prior VTE?: No VTE Risk Level:: Medical - moderate - high VTE Device Contraindication: Treatment Not Indicated VTE Drug Contraindication: N/A - Med Ordered
--- NOTE | 2025-07-04 17:01 | PC.NURSE ---
delay in antibiotics d/t patient being a difficult stick. patient ambulating pulse oxygen with pct was 87%. patient poor historian as to whether she wears oxygen at home or not, multiple different stories.
--- NOTE | 2025-07-04 18:52 | HO.NURTONUR ---
came to emergency dept for outpatient response. complaining of sob/chest pain upon arrival. hx copd/ashtma. ambulating pulse ox 87%. coming in for asthma exacerbation. 20IV RAC. ambulates with own walker independently, however needs assistance with portable o2. on 2L nasal cannula, has this PRN at home as well. alert and oriented x4. remains on o2.
--- NOTE | 2025-07-04 19:14 | PHA.MEDREC ---
Addendum entered by Westley Vargas [facility] 07/04/25 19:26: med rec reviewed Original Note: Pharmacy Consult ? Medication Reconciliation Pharmacy has completed the medication reconciliation. Spoke with pt and she is a poor historian with her medications and just kept saying i take all my meds as they are in your system . Pt states there is no one we can call at this time; Found contact info for patient Breanna Carson [phone] and Rosetta (other relation) [phone], left a voicemail for both of them to call us back. I utilized claims for now to confirm pt med rec.
[2025-07-04] MEDS: Albuterol Sulfate (0.083%) 2.5 MG/3 ML VIAL.NEB INHALE (20:17)
[2025-07-04] MEDS: Lactated Ringers 1,000 ML 80 ML IVCONT (20:33)
[2025-07-04 21:07] LABS: Glucose, Whole Blood 249 mg/dL (60-115)
[2025-07-04] MEDS: 0.9 % Sodium Chloride Flush 3 ML SYRINGE IVFLUSH (23:58)
[2025-07-05] VITALS (9 sets, daily range): BP systolic 131–169; BP diastolic 61–84; PULSE 89–104; RESP 17–18; TEMP 36.5–36.8; O2SAT 84–95; BMI 50.8
--- NOTE | 2025-07-05 00:15 | HO.SKINPHOTO ---
Location: right buttock Category: PI Stage: Length: Width: Depth: cm Location: Category: Stage: Length: Width: Depth: cm Location: Category: Stage: Length: Width: Depth: cm Location: Category: Stage: Length: Width: Depth: cm Location: Category: Stage: Length: Width: Depth: cm Location: Category: Stage: Length: Width: Depth: cm
--- NOTE | 2025-07-05 00:16 | PC.NURSE ---
Patient arrived from ED in hospital bed, tired, falling asleep ,easily arousable. Agitated when waken up, stated to let her sleep. Is wearing pants and a brief which is slightly soiled but is refusing to change it.
[2025-07-05 07:04] LABS: Hematocrit 35.4 % (37.0-47.0); Hemoglobin 11.0 g/dl (12.0-16.0); Mean Corpuscular HGB Conc 31.1 g/dl (31.0-35.0); Mean Corpuscular Hemoglobin 29.0 pg (27.0-33.0); Mean Corpuscular Volume 93.4 fL (80.0-98.0); NRBC Abs Auto 0.000 X10*3/uL (0.0-0.012); NRBC Pct Auto 0.0 /100WBC (0.0-0.2); Platelet Count 160 X10*3/uL (160-400); Red Blood Count 3.79 X10*6/uL (4.20-5.50); White Blood Count 9.1 X10*3/uL (4.8-10.8)
[2025-07-05 07:13] LABS: Anion Gap 18 (12-20); Blood Urea Nitrogen 34 mg/dL (9-16); Calcium 8.5 mg/dL (8.4-10.2); Carbon Dioxide 30 mmol/L (22-29); Chloride 99 mmol/L (96-108); Creatinine Clr Calc Pharmacy 39.0; Estimated Glomerular Filt Rate 27; Potassium 5.1 mmol/L (3.3-5.1); Sodium 142 mmol/L (135-145)
[2025-07-05 07:17] LABS: Glucose, Whole Blood 227 mg/dL (60-115)
[2025-07-05] MEDS: Albuterol Sulfate (0.083%) 2.5 MG/3 ML VIAL.NEB INHALE ×4 (08:28→20:27)
--- NOTE | 2025-07-05 08:42 | PC.RT ---
Pt walking to the bathroom on RA, SATs 84%. Pt in chair and placed on 2L, SATs 92%.
[2025-07-05] MEDS: Lactated Ringers 1,000 ML 80 ML IVCONT (10:39)
[2025-07-05 11:07] LABS: Glucose, Whole Blood 260 mg/dL (60-115)
--- NOTE | 2025-07-05 12:02 | HO.PM.IMPN ---
Subjective Subjective Date of Service: 07/05/25 Review of Systems Follow up asthma exacerbation still wheezy and sob with ambulation Physical Exam Exam: Exam: Appearing in no acute distress lung sounds exp wheezing heart regular rate rhythm, clear S1, S2 positive bowel sounds, abdomen is soft, nontender neuro patient is alert x3, no focal deficits Vital Signs: Vital Signs: Last Vital Signs Temp 98 F 07/05/25 06:53 Pulse 102 H 07/05/25 11:18 Resp 18 07/05/25 11:18 BP 131/84 07/05/25 06:53 Pulse Ox 84 L 07/05/25 08:14 O2 Del Method Nasal Cannula 07/05/25 06:53 O2 Flow Rate 2 07/05/25 06:53 BMI result Body Mass Index 50.8 Objective Data Active Medications Acetaminophen (Acetaminophen 325 Mg Tablet) 650 mg PO Q6H PRN PRN Reason: Pain, Mild 1-3,fever,headache Albuterol Sulfate (Albuterol Sulfate (0.083%) 2.5 Mg/3 Ml Vial.Neb) 2.5 mg INHALE RQ4H WHILE AWAKE [facility] Last Admin: 07/05/25 11:17 Dose: 2.5 mg Documented By: CRISTY Bumetanide (Bumetanide 1 Mg Tablet) 2 mg PO DAILY [facility]; Protocol Last Admin: 07/05/25 07:57 Dose: 2 mg Documented By: MIKE Buspirone HCl (Buspirone Hcl 10 Mg Tablet) 30 mg PO BID [facility] Last Admin: 07/05/25 07:57 Dose: 30 mg Documented By: MIKE Calcium Carbonate (Calcium Carbonate 750 Mg Tab.Chew) 750 mg PO Q4H PRN PRN Reason: Heartburn Clonidine HCl (Clonidine Hcl 0.1 Mg Tablet) 0.1 mg PO TID PRN; Protocol PRN Reason: Anxiety Dextrose (Dextrose 50 % 25 Gm/50 Ml Syringe) 25 gm IVPUSH Q15M PRN; Protocol PRN Reason: per Hypoglycemia Standing Ord. Duloxetine HCl (Duloxetine Hcl 60 Mg Capsule.Dr) 60 mg PO DAILY [facility] Last Admin: 07/05/25 07:57 Dose: 60 mg Documented By: MIKE Enoxaparin Sodium (Enoxaparin Sodium 40 Mg/0.4 Ml Syringe) 40 mg SUBCUT Q24H [facility] Last Admin: 07/04/25 17:55 Dose: 40 mg Documented By: TAHIRA Gabapentin (Gabapentin 400 Mg Capsule) 400 mg PO BID@0900,1500 [facility] Last Admin: 07/05/25 07:57 Dose: 400 mg Documented By: MIKE Glucose (Glucose Gel 15 Gm Gel..Gram.) 15 gm PO Q15M PRN; Protocol PRN Reason: per Hypoglycemia Standing Ord. Lactated Ringer's (Lr) 1,000 mls @ 80 mls/hr IVCONT .[id number] [facility] Last Admin: 07/05/25 10:39 Dose: 80 mls/hr Documented By: MIKE Insulin Human Lispro (Insulin Lispro 100 Unit/Ml 3 Ml Vial) 0 unit SUBCUT QIDACHS [facility]; Protocol Last Admin: 07/05/25 11:41 Dose: 6 unit Documented By: MIKE Lorazepam (Lorazepam 0.5 Mg Tablet) 0.5 mg PO DAILY PRN PRN Reason: Anxiety Magnesium Hydroxide (Milk Of Magnesia 30 Ml Oral.Susp) 30 ml PO DAILY PRN PRN Reason: Constipation Melatonin (Melatonin 3 Mg Tablet) 6 mg PO BEDTIME PRN PRN Reason: Insomnia Methylprednisolone Sodium Succinate (Methylprednisolone Sod Succ 40 Mg/Ml Vial) 40 mg IVPUSH Q12H [facility] Last Admin: 07/05/25 11:41 Dose: 40 mg Documented By: MIKE Ondansetron HCl (Ondansetron Hcl 4 Mg/2 Ml Vial) 4 mg IVPUSH Q8H PRN PRN Reason: Nausea and Vomiting Prazosin HCl (Prazosin Hcl 1 Mg Capsule) 1 mg PO BEDTIME [facility]; Protocol Last Admin: 07/04/25 21:14 Dose: 1 mg Documented By: ADRIENNE Risperidone (Risperidone 1 Mg Tablet) 1 mg PO BEDTIME [facility] Last Admin: 07/04/25 21:13 Dose: 1 mg Documented By: ADRIENNE Sodium Chloride (0.9 % Sodium Chloride Flush 3 Ml Syringe) 3 ml IVFLUSH QSHIFT [facility] Last Admin: 07/05/25 07:58 Dose: Not Given Documented By: MIKE Non-Admin Reason: IV Running Labs 07/05/25 05:55 07/05/25 05:55 Labs: Laboratory Results - last 24 hr 07/04/25 07/04/25 07/04/25 11:31 11:32 11:40 MCV MCH MCHC RDW Plt Count MPV Absolute Nucleated RBC Nucleated RBC % (auto) VBG pH 7.42 VBG pCO2 63 VBG pO2 70 VBG HCO3 41 H VBG O2 Saturation 91.0 VBG Base Excess 14.0 Anion Gap 15 Estim Creat Clear Calc 32.4 Estimated GFR 22 POC Glucose Random Glucose 158 H Calcium 8.6 Magnesium 1.9 Total Bilirubin 0.3 Direct Bilirubin 0.1 AST 16 ALT 6 Alkaline Phosphatase 94 Troponin I High Sens 22.1 H D NT-Pro-B Natriuret Pep 724.3 H Total Protein 6.3 L Albumin 4.1 Respiratory Panel Flor Adenovirus (Rapid PCR) B.pert (TEM-PCR) B.parapertussis DNA PCR C. pneumoniae DNA (PCR) Coronavirus OC43 (PCR) Coronavirus HKU1 (PCR) Coronavirus 229E (PCR) Coronavirus NL63 (PCR) Human Metapneumovir PCR Influenza A (RT-PCR) Influenza A (H1) PCR Influ A (H1/09) PCR Influenza A (H3) PCR Influenza Type A (PCR) NEGATIVE Influenza B (RT-PCR) Influenza Type B (PCR) NEGATIVE M. pneumoniae (PCR) Parainfluenza 1 (PCR) Parainfluenza 2 (PCR) Parainfluenza 3 (PCR) Parainfluenza 4 (PCR) RSV (PCR) RSV RNA Qual (PCR) NEGATIVE Entero/Rhino (PCR) SARS-CoV-2 RNA (RT-PCR) NEGATIVE 07/04/25 07/04/25 07/04/25 12:55 14:19 21:03 MCV MCH MCHC RDW Plt Count MPV Absolute Nucleated RBC Nucleated RBC % (auto) VBG pH VBG pCO2 VBG pO2 VBG HCO3 VBG O2 Saturation VBG Base Excess Anion Gap Estim Creat Clear Calc Estimated GFR POC Glucose 249 H Random Glucose Calcium Magnesium Total Bilirubin Direct Bilirubin AST ALT Alkaline Phosphatase Troponin I High Sens 22.9 H NT-Pro-B Natriuret Pep Total Protein Albumin Respiratory Panel Flor See Note Adenovirus (Rapid PCR) Not Detected B.pert (TEM-PCR) Not Detected B.parapertussis DNA PCR Not Detected C. pneumoniae DNA (PCR) Not Detected Coronavirus OC43 (PCR) Not Detected Coronavirus HKU1 (PCR) Not Detected Coronavirus 229E (PCR) Not Detected Coronavirus NL63 (PCR) Not Detected Human Metapneumovir PCR Not Detected Influenza A (RT-PCR) Not Detected Influenza A (H1) PCR Not Detected Influ A () PCR Not Detected Influenza A (H3) PCR Not Detected Influenza Type A (PCR) Influenza B (RT-PCR) Not Detected Influenza Type B (PCR) M. pneumoniae (PCR) Not Detected Parainfluenza 1 (PCR) Not Detected Parainfluenza 2 (PCR) Not Detected Parainfluenza 3 (PCR) Not Detected Parainfluenza 4 (PCR) Not Detected RSV (PCR) Not Detected RSV RNA Qual (PCR) Entero/Rhino (PCR) Not Detected SARS-CoV-2 RNA (RT-PCR) Not Detected 07/05/25 07/05/25 07/05/25 05:55 07:11 10:56 MCV 93.4 MCH 29.0 MCHC 31.1 RDW 14.1 Plt Count 160 MPV 10.4 Absolute Nucleated RBC 0.000 Nucleated RBC % (auto) 0.0 VBG pH VBG pCO2 VBG pO2 VBG HCO3 VBG O2 Saturation VBG Base Excess Anion Gap 18 Estim Creat Clear Calc 39.0 Estimated GFR 27 POC Glucose 227 H 260 H Random Glucose 230 H Calcium 8.5 Magnesium Total Bilirubin Direct Bilirubin AST ALT Alkaline Phosphatase Troponin I High Sens NT-Pro-B Natriuret Pep Total Protein Albumin Respiratory Panel Flor Adenovirus (Rapid PCR) B.pert (TEM-PCR) B.parapertussis DNA PCR C. pneumoniae DNA (PCR) Coronavirus OC43 (PCR) Coronavirus HKU1 (PCR) Coronavirus 229E (PCR) Coronavirus NL63 (PCR) Human Metapneumovir PCR Influenza A (RT-PCR) Influenza A (H1) PCR Influ A (H1) PCR Influenza A (H3) PCR Influenza Type A (PCR) Influenza B (RT-PCR) Influenza Type B (PCR) M. pneumoniae (PCR) Parainfluenza 1 (PCR) Parainfluenza 2 (PCR) Parainfluenza 3 (PCR) Parainfluenza 4 (PCR) RSV (PCR) RSV RNA Qual (PCR) Entero/Rhino (PCR) SARS-CoV-2 RNA (RT-PCR) Assessment and Plan (1) Diabetes: Status: Acute Plan 65 year old women admitted with acute hypoxic respiratory failure secondary to COPD exacerbation Acute on chronic respiratory failure Chest x-ray with no consolidation or effusion IV solumedrol scheduled duonebs RPP negative continue supplemental oxygen to keep oxygen saturation> 90% still sob and hypoxic on ambulation FELICIA on CKD stage 3. Resolved above baseline gentle fluid hydration Hypertension stable blood pressure Diabetes mellitus type 2 Sliding scale, ADA diet Anxiety/Mental health Continue home medications Congestive heart failure with reduced ejection fraction No acute exacerbation Super morbid obesity. BMI 50.8 Discussed importance of weight management as this may be contributing to worsening of other comorbidities Obstructive sleep apnea Not on CPAP DVT prophylaxis with heparin Full code Quality Stroke Does the patient have a stroke diagnosis?: No VTE Prior VTE?: No VTE Risk Level:: Medical - moderate - high VTE Device Contraindication: Treatment Not Indicated VTE Drug Contraindication: N/A - Med Ordered
[2025-07-05 12:06] LABS: Chlamydia pneumoniae PCR Not Detected (Not Detect.); Coronavirus 229E PCR Not Detected (Not Detect.); Coronavirus HKU1 PCR Not Detected (Not Detect.); Coronavirus NL63 PCR Not Detected (Not Detect.); Coronavirus OC43 PCR Not Detected (Not Detect.); RSV PCR Not Detected (Not Detect.); Rhino/Enterovirus PCR Not Detected (Not Detect.)
[2025-07-05 12:52] LABS: Influenza A H1 PCR Not Detected (Not Detect.); Influenza A H1-2009 PCR Not Detected (Not Detect.); Influenza A H3 PCR Not Detected (Not Detect.); SARS-CoV-2 PCR Not Detected (Not Detect.)
--- NOTE | 2025-07-05 13:54 | MHC.CM.PN ---
Patient lives in an apartment. Her grandson stays w/ her most times. Has daily ATHLETIC COORDINATOR services 3hrs/day to assist w/ bathing, shopping, cooking. Also reports she has an ACP nursing 2x/day for med management. Ambulates w/ a walker. Uses home O2 PRN via [employer]. PCP Celia BUTCHER HCP on file and verifield. DP: Home, resume services, ? need for additional VNA for PT - referral to [facility] per patient preference. Niece to transport. CM will continue to follow.
--- NOTE | 2025-07-05 14:50 | MHC.CLN ---
PT WITH INCREASED NUTRITION RISK R/T PRESSURE INJURY PO INTAKE 50% X2 MEALS DIET RX: 2000DM-RECOMMEND ADDING 2GM NA DIET R/T CHF, CKD RECOMMEND ADDING ESNURE MAX BID TO PROMOTE WOUND HEALING SUPP TO PROVIDE 300KCALAS, 60G PROTEIN MONITOR PO INTAKE AND ENCOURAGE SUPPLEMENTS SEE FULL ASSESSMENT
[2025-07-05 15:29] LABS: Glucose, Whole Blood 233 mg/dL (60-115)
[2025-07-05] MEDS: 0.9 % Sodium Chloride Flush 3 ML SYRINGE IVFLUSH ×2 (16:29→21:43)
[2025-07-05 20:27] LABS: Glucose, Whole Blood 295 mg/dL (60-115)
[2025-07-06] VITALS (13 sets, daily range): BP systolic 138–175; BP diastolic 61–76; PULSE 86–120; RESP 18–20; TEMP 36.4–36.8; O2SAT 83–97
[2025-07-06 07:32] LABS: Glucose, Whole Blood 308 mg/dL (60-115)
[2025-07-06] MEDS: 0.9 % Sodium Chloride Flush 3 ML SYRINGE IVFLUSH ×3 (07:55→22:07)
[2025-07-06] MEDS: Albuterol Sulfate (0.083%) 2.5 MG/3 ML VIAL.NEB INHALE ×4 (08:15→18:57)
[2025-07-06 11:44] LABS: Glucose, Whole Blood 241 mg/dL (60-115)
[2025-07-06] MEDS: guaiFENesin DM 100/10/5 ML 5 ML SYRUP PO (12:35)
--- NOTE | 2025-07-06 14:23 | HO.WOUND ---
Wound Consult: Initial 65 yr old female admitted to [facility] on 07/04/25- See progress notes and H&P for detailed history. Wound consult placed for right buttock. Patient agreeable to assessment and photo documentation. Patient able to position independently in bed for assessment. Patient noted on previous admissions with pressure injuries to buttocks/sacrum. Patient reports she has followed up with outpatient wound care in the past, and was recently discharged with a healed wound to buttocks area, now reopened. Recommend continued follow up upon discharge Right buttock Etiology: Right buttock stage 3 pressure injury Present on Admission Measurements: 3cm x 2cm x 0.2cm Wound Bed: moist pink/red granulation and nongranular tissue - shallow but full thickness wounding set over scar tissue with scabbed/crusted edges Drainage / Odor: scant serous Edges: ? irregular - crusted and scabbed Carol Ann wound: ? No Induration, Fluctuance or Warmth noted - skin with appearance of chronic friction, moisture and shearing with scar tissue. Scar tissue noted over coccyx and left buttocks also - intact and at risk for reinjury Pain: none Goals of Treatment: ? triad to provide an occlusive dressing for autolytic debridment, to allow moist wound healing with absorption of mild exudate, to minimize contamination of urine/stool or bacteria, and to soothe and protect carol ann wound skin. Recommendations: 1. Turn and Reposition every 2 hours and as needed for patient comfort. Use pillows or wedges to support off loading positions. 2. Off Load all bony prominences with use of pillows and heel boots if needed. Apply Preventative foams where needed. 3. Use waffle cushion when up to chair, limit sitting times to 1-2 hours 3. Monitor for incontinence and moisture control, use barrier creams when needed for prevention and treatment. 4. Provide adequate and supplemental nutrition. 5. Order or Continue low air loss mattress. 6. When applicable maintain blood glucose levels per Providers order. Buttocks: Off Load Pressure with Q2 hr turns and use of pillows - Cleanse with PH balance spray or wipes, pat dry. ?Apply thin layer of Triad to wound bed - only pat and dab no scrub and rub when soiling occurs. Reapply thin layer PRN after each episode of incontinence. Re-consult wound care Nurse for wound deterioration or wound changes.
[2025-07-06 16:47] LABS: Glucose, Whole Blood 348 mg/dL (60-115)
--- NOTE | 2025-07-06 17:19 | HO.PM.IMPN ---
Subjective Subjective Date of Service: 07/06/25 Interval History: seen and examined this morning follow up for copd exacerbation sob improving but failed oxygen wean. o2 sat dropped to 80s on room air Review of Systems Review of Systems: Yes all other systems are reviewed and are negative Constitutional Constitutional: Denies chills and Denies fever(s) Cardiovascular Cardiovascular: Denies chest pain, Denies palpitations and Reports dyspnea on exertion Respiratory Respiratory: Reports dyspnea on exertion Endocrine Endocrine: Denies palpitations Physical Exam Vital Signs: Vital Signs: Last Vital Signs Temp 97.9 F 07/06/25 15:51 Pulse 119 H 07/06/25 16:00 Resp 18 07/06/25 16:00 BP 175/76 H 07/06/25 15:51 Pulse Ox 92 07/06/25 15:51 O2 Del Method Nasal Cannula 07/06/25 15:51 O2 Flow Rate 2 07/06/25 15:51 BMI result Body Mass Index 50.8 Const: General: cooperative, comfortable, no acute distress, alert and awake Nutritional Appearance: obese Orientation/consciousness: patient oriented x3 Resp: Other: expiratory rhonchi Effort & Inspection: normal respiratory effort and no use of accessory muscles Cardio: Rate: regular rate GI: Inspection: Yes obesity Palpation (GI): Soft to palpation Neuro: General: patient oriented x3, moves all extremities and CN's II-XI intact bilaterally Objective Data Active Medications Acetaminophen (Acetaminophen 325 Mg Tablet) 650 mg PO Q6H PRN PRN Reason: Pain, Mild 1-3,fever,headache Albuterol Sulfate (Albuterol Sulfate (0.083%) 2.5 Mg/3 Ml Vial.Neb) 2.5 mg INHALE RQ4H WHILE AWAKE [facility] Last Admin: 07/06/25 15:57 Dose: 2.5 mg Documented By: CHELO Benzocaine (Throat Lozenge, Medicated Lozenge) 1 lozenge MUCOUS MEM Q2H PRN PRN Reason: Sore Throat Bumetanide (Bumetanide 1 Mg Tablet) 2 mg PO DAILY [facility]; Protocol Last Admin: 07/06/25 07:54 Dose: 2 mg Documented By: PERLA Buspirone HCl (Buspirone Hcl 10 Mg Tablet) 30 mg PO BID [facility] Last Admin: 07/06/25 07:55 Dose: 30 mg Documented By: PERLA Calcium Carbonate (Calcium Carbonate 750 Mg Tab.Chew) 750 mg PO Q4H PRN PRN Reason: Heartburn Clonidine HCl (Clonidine Hcl 0.1 Mg Tablet) 0.1 mg PO TID PRN; Protocol PRN Reason: Anxiety Last Admin: 07/06/25 09:18 Dose: 0.1 mg Documented By: PERLA Dextrose (Dextrose 50 % 25 Gm/50 Ml Syringe) 25 gm IVPUSH Q15M PRN; Protocol PRN Reason: per Hypoglycemia Standing Ord. Duloxetine HCl (Duloxetine Hcl 60 Mg Capsule.Dr) 60 mg PO DAILY [facility] Last Admin: 07/06/25 07:55 Dose: 60 mg Documented By: PERLA Enoxaparin Sodium (Enoxaparin Sodium 40 Mg/0.4 Ml Syringe) 40 mg SUBCUT Q24H [facility] Last Admin: 07/06/25 16:59 Dose: 40 mg Documented By: PERLA Gabapentin (Gabapentin 400 Mg Capsule) 400 mg PO BID@0900,1500 [facility] Last Admin: 07/06/25 15:01 Dose: 400 mg Documented By: PERLA Glucose (Glucose Gel 15 Gm Gel..Gram.) 15 gm PO Q15M PRN; Protocol PRN Reason: per Hypoglycemia Standing Ord. Guaifenesin/Dextromethorphan (Guaifenesin Dm 100/10/5 Ml 5 Ml Syrup) 5 ml PO Q6H PRN PRN Reason: Cough Last Admin: 07/06/25 12:35 Dose: 5 ml Documented By: PERLA Insulin Human Lispro (Insulin Lispro 100 Unit/Ml 3 Ml Vial) 0 unit SUBCUT QIDACHS [facility]; Protocol Last Admin: 07/06/25 16:58 Dose: 8 unit Documented By: PERLA Lorazepam (Lorazepam 0.5 Mg Tablet) 0.5 mg PO DAILY PRN PRN Reason: Anxiety Last Admin: 07/06/25 15:01 Dose: 0.5 mg Documented By: PERLA Magnesium Hydroxide (Milk Of Magnesia 30 Ml Oral.Susp) 30 ml PO DAILY PRN PRN Reason: Constipation Melatonin (Melatonin 3 Mg Tablet) 6 mg PO BEDTIME PRN PRN Reason: Insomnia Methylprednisolone Sodium Succinate (Methylprednisolone Sod Succ 40 Mg/Ml Vial) 40 mg IVPUSH Q12H [facility] Last Admin: 07/06/25 10:53 Dose: 40 mg Documented By: PERLA Ondansetron HCl (Ondansetron Hcl 4 Mg/2 Ml Vial) 4 mg IVPUSH Q8H PRN PRN Reason: Nausea and Vomiting Prazosin HCl (Prazosin Hcl 1 Mg Capsule) 1 mg PO BEDTIME HI; Protocol Last Admin: 07/05/25 21:43 Dose: 1 mg Documented By: RAYMUNDO Risperidone (Risperidone 1 Mg Tablet) 1 mg PO BEDTIME HI Last Admin: 07/05/25 21:43 Dose: 1 mg Documented By: RAYMUNDO Sodium Chloride (0.9 % Sodium Chloride Flush 3 Ml Syringe) 3 ml IVFLUSH QSHIFT [facility] Last Admin: 07/06/25 15:02 Dose: 3 ml Documented By: PERLA Trazodone HCl (Trazodone Hcl 50 Mg Tablet) 150 mg PO BEDTIME PRN PRN Reason: insomnia Last Admin: 07/05/25 21:43 Dose: 150 mg Documented By: RAYMUNDO Labs 07/05/25 05:55 07/05/25 05:55 Labs: Laboratory Results - last 24 hr 07/05/25 07/06/25 07/06/25 20:20 07:24 11:37 POC Glucose 295 H 308 H 241 H 07/06/25 16:24 POC Glucose 348 H Microbiology Microbiology Results: Microbiology 07/04/25 17:13 Blood Culture - Preliminary Blood - Venous No growth after 24 hours. 07/04/25 16:54 Blood Culture - Preliminary Blood - Venous No growth after 24 hours. Assessment and Plan (1) COPD (chronic obstructive pulmonary disease): Status: Acute Plan This is a 65 year old women admitted with acute hypoxic respiratory failure secondary to COPD exacerbation Acute respiratory failure with hypoxia due to acute COPD exacerbation Chest x-ray with no consolidation or effusion. RPP negative. BNP similar to previous continue IV solumedrol, scheduled duonebs continue supplemental oxygen to keep oxygen saturation> 90% still sob and hypoxic even at rest FELICIA on CKD stage 3. Resolved above baseline gentle fluid hydration Hypertension resume baseline metoprolol, imdur Diabetes mellitus type 2 with steroid induced hyperglycemia hold zepbound POC up to 350, will resume 50% dose of home Lantus and up-titrate prn Sliding scale, ADA diet tachycardia may be due to breathing treatments vs missed BB dose resume metoprolol Anxiety/Mental health Continue home medications Congestive heart failure with reduced ejection fraction No acute exacerbation continue baseline bumex Super morbid obesity. BMI 50.8 Discussed importance of weight management as this may be contributing to worsening of other comorbidities Obstructive sleep apnea Not on CPAP DVT prophylaxis with lovenox Full code Patient requires ongoing inpatient stay for management of acute COPD exacerbation with persistent hypoxia requiring oxygen, steroids and close monitoring of respiratory status Quality Stroke Does the patient have a stroke diagnosis?: No VTE Prior VTE?: No VTE Risk Level:: Medical - moderate - high VTE Device Contraindication: Treatment Not Indicated VTE Drug Contraindication: N/A - Med Ordered
[2025-07-06] MEDS: Metoprolol Succinate ER 50 MG TAB.ER.24H PO (18:03)
[2025-07-06 21:55] LABS: Glucose, Whole Blood 310 mg/dL (60-115)
[2025-07-06] MEDS: Insulin Glargine,Hum.rec.anlog 100 UNIT/ML 10 ML VIAL 30 UNIT SUBCUT (22:06)
[2025-07-07 03:44] VITALS: BP 142/60; PULSE 101; RESP 18; TEMP 36.7; O2SAT 93
[2025-07-07 07:03] LABS: Anion Gap 16 (12-20); Blood Urea Nitrogen 48 mg/dL (9-16); Calcium 8.5 mg/dL (8.4-10.2); Carbon Dioxide 29 mmol/L (22-29); Chloride 97 mmol/L (96-108); Creatinine Clr Calc Pharmacy 46.5; Estimated Glomerular Filt Rate 34; Potassium 5.1 mmol/L (3.3-5.1); Sodium 137 mmol/L (135-145)
[2025-07-07 07:37] VITALS: BP 150/67; PULSE 87; RESP 18; TEMP 36.4; O2SAT 93
[2025-07-07 07:43] LABS: Glucose, Whole Blood 310 mg/dL (60-115)
[2025-07-07] MEDS: 0.9 % Sodium Chloride Flush 3 ML SYRINGE IVFLUSH (08:06)
[2025-07-07] MEDS: Metoprolol Succinate ER 50 MG TAB.ER.24H PO (08:08)
[2025-07-07 08:09] VITALS: O2SAT 92
[2025-07-07] MEDS: Albuterol Sulfate (0.083%) 2.5 MG/3 ML VIAL.NEB INHALE (08:12)
[2025-07-07 08:15] VITALS: PULSE 92; RESP 18; O2SAT 91
[2025-07-07 08:17] VITALS: O2SAT 91
--- NOTE | 2025-07-07 09:06 | P.DS_ITS ---
DS: Providers Provider Date of admission: 07/04/25 16:49 Date of discharge: 07/07/25 Primary care physician: GUADALUPE Blackman Consults: 07/05/25 00:06 Consult to Wound Care Routine Consulting Provider: [facility] Wound Care Management Reason for consultation: pressure injury to right buttock Attending physician on discharge: Davion Mccallum Discharging clinician: Bernadette Tucker DS: Diagnosis Discharge Diagnosis (1) COPD (chronic obstructive pulmonary disease): Status: Acute DS: Summary Hospital Course Hospital Course: From H&P on the day of admission 61-year-old female with history of asthma/copd on oxygen, jose, cmp or CHF presented to the ED from her pulmonology office. An outpatient response was called and patient was brought to the ED. She reported a productive cough and increased shortness of breath. She also endorses central chest pain while coughing. 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 She denied chest pain, nausea, vomiting, diarrhea, recent travel. CXR negative for consolidation or effusion. RPP negative. Reports compliance with all of her medications. She will be admitted for acute asthma exacerabation. Acute respiratory failure with hypoxia due to acute COPD exacerbation. Chest x-ray with no consolidation or effusion. Full RPP negative. BNP similar to previous. treated with IV solumedrol and scheduled duonebs. She initially required supplemental oxygen but on the day of discharge she was able to be weaned off of oxygen, she did not qualify for home oxygen. Her shortness of breath gradually improved and the patient is eager to return home. She will be discharged home to complete course of oral steroids. FELICIA on CKD stage 3. Resolved Right buttock stage 3 pressure injury Present on Admission Apply thin layer of Triad to wound bed outpatient follow up with wound care recommended Diabetes mellitus type 2 with steroid induced hyperglycemia resume home meds upon discharge HFrEF. no acute exacerbation. continued on baseline medications Morbid obesity BMI 50.8 weight loss encouraged no changes made to baseline medications Time Attestation Discharge Coordination Time (in mins): 35 Quality: Safe Use of Opioids Does Pt have an Active Cancer Diagnosis on the Problem List?: No Quality: Stroke Does the patient have a stroke diagnosis?: No Physical Exam Vital Signs: Vital Signs: Last Vital Signs Temp 97.6 F 07/07/25 07:37 Pulse 92 07/07/25 08:15 Resp 18 07/07/25 08:15 BP 150/67 H 07/07/25 07:37 Pulse Ox 91 L 07/07/25 08:17 O2 Del Method Room Air 07/07/25 08:17 O2 Flow Rate 1 07/07/25 08:09 BMI result Body Mass Index 50.8 Const: General: cooperative, comfortable, no acute distress, alert and awake Nutritional Appearance: obese Orientation/consciousness: patient oriented x3 Resp: Other: scattered expiratory wheeze Effort & Inspection: able to speak in complete sentences, no respiratory distress and no use of accessory muscles Cardio: Rate: regular rate GI: Inspection: Yes obesity Palpation (GI): Soft to palpation Neuro: General: patient oriented x3, moves all extremities and CN's II-XI intact bilaterally DS: Data Data Completed and Pending Completed studies during hospitalization [Text1]: Procedures Assistance with Respiratory Ventilation, Less than 24 Consecutive Hours, Continuous Positive Airway Pressure (12/11/20) Excision of Buttock Subcutaneous Tissue and Fascia, Open Approach (04/20/22) Extirpation of Matter from Rectum, Via Natural or Artificial Opening (04/20/22) Labs on day of discharge: Laboratory Results - last 24 hr 07/06/25 07/06/25 07/06/25 11:37 16:24 21:51 Hold Purple Top Sodium Potassium Chloride Carbon Dioxide Anion Gap BUN Creatinine Estim Creat Clear Calc Estimated GFR POC Glucose 241 H 348 H 310 H Random Glucose Calcium 07/07/25 07/07/25 05:55 07:40 Hold Purple Top SEE NOTE Sodium 137 Potassium 5.1 Chloride 97 Carbon Dioxide 29 Anion Gap 16 BUN 48 H Creatinine 1.55 H Estim Creat Clear Calc 46.5 Estimated GFR 34 POC Glucose 310 H Random Glucose 325 H Calcium 8.5 Preliminary micro results at discharge 07/04/25 17:13 Blood Culture - Preliminary Blood - Venous No growth after 48 hours. 07/04/25 16:54 Blood Culture - Preliminary Blood - Venous No growth after 48 hours. Discharge Plan Discharge Anticipated Discharge Date/Time: 07/07/25 09:22 Patient Disposition: Home, Self-Care Discharge Diagnosis: acute copd exacerbation Referrals: [facility] Wound Care [Outside] - 1 Week Celia Horn PA [Primary Care Provider, Hospitalist] - 1 Week Discharge Medications: New prednisone 20 mg tablet 40 mg PO DAILY 5 Days Qty: 10 0RF dextromethorphan-guaifenesin 10-100 mg/5 mL Syrup 5 ml PO Q8H PRN (Reason: Cough) Qty: 237 0RF albuterol sulfate [Ventolin HFA] 90 mcg/actuation HFA aerosol inhaler 2 puff inhalation Q4-6H PRN (Reason: shortness of breath or wheezing) Qty: 6.7 0RF Continued (DME) blood-glucose meter [FreeStyle Lite Meter] Kit See Rx Instructions .Route Qty: 1 0RF Rx Instructions: As directed checks POC 4 X/day (DME) pen needle, diabetic [Comfort EZ Pen [place]] 31 gauge x 5/16 needle See Rx Instructions .Route Qty: 200 3RF Rx Instructions: 4 times daily (DME) insulin syringe-needle U-100 [BD Insulin Syringe Ultra-Fine] 1 mL 31 gauge x 5/16 syringe See Rx Instructions .ROUTE QID Qty: 200 3RF Rx Instructions: Four times daily gabapentin 400 mg capsule 400 mg PO BID@0900,1500 Qty: 180 1RF simvastatin 20 mg tablet 20 mg PO BEDTIME Qty: 90 1RF bumetanide 2 mg tablet 2 mg PO DAILY 90 Days Qty: 90 0RF (DME) insulin syringe-needle U-100 [BD Insulin Syringe Ultra-Fine] 1 mL 31 gauge x 5/16 syringe MISCELLANEOUS QID metoprolol succinate 50 mg tablet extended release 24 hr 50 mg PO DAILY prazosin 1 mg capsule 1 mg PO BEDTIME clonidine HCl 0.1 mg tablet 0.1 mg PO TID PRN (Reason: Anxiety) allopurinol 100 mg tablet 100 mg PO DAILY duloxetine 60 mg capsule,delayed release(DR/EC) 60 mg PO DAILY insulin glargine [Lantus Solostar U-100 Insulin] 100 unit/mL (3 mL) insulin pen 60 unit subcut BEDTIME Zepbound 5 mg/0.5 mL pen injector 5 mg subcut WE pantoprazole 20 mg tablet,delayed release (DR/EC) 20 mg PO BEDTIME@1800 trazodone 150 mg tablet 150 - 300 mg PO BEDTIME PRN (Reason: insomnia) risperidone 1 mg tablet 1 mg PO BEDTIME Linzess 290 mcg capsule 290 mcg PO DAILY sertraline 25 mg tablet 75 mg PO DAILY insulin lispro [Humalog U-100 Insulin] 100 unit/mL solution See Protocol subcut [facility] Protocol: Insulin Correction Scale Less than or equal to 110 ---- Give (units): 0 111 to 150 Give (units): 0 151 to 200 Give (units): 2 201 to 250 Give (units): 4 251 to 300 Give (units): 6 301 to 350 Give (units): 8 Greater than 350 Give (units): 10 Call MD if Blood Glucose > : 350 Rx Instructions: subcutaneous 15 minutes prior to meal or at the latest at the onset of eating. lorazepam 0.5 mg tablet 0.5 mg PO DAILY PRN (Reason: anxiety) (DME) lancets [FreeStyle Lancets] 28 gauge misc See Rx Instructions .ROUTE QID Qty: 200 3RF Rx Instructions: four times daily (DME) pen needle, diabetic [Comfort EZ Pen [place]] 32 gauge x 5/16 needle See Rx Instructions .Route Qty: 200 3RF Rx Instructions: four times daily (DME) FreeStyle Lite Strips Strip See Rx Instructions .ROUTE BID Qty: 200 3RF Rx Instructions: four times daily (DME) ADULT PULL UP XL See Rx Instructions .Route .MEDSUPPLY Qty: 360 3RF Rx Instructions: 4 per day (DME) Commode bags See Rx Instructions .Route .MEDSUPPLY Qty: 4 3RF Rx Instructions: 4x/day (DME) nitrile gloves See Rx Instructions .Route .MEDSUPPLY Qty: 360 3RF Rx Instructions: 4x/day (DME) Chux See Rx Instructions .Route .MEDSUPPLY Qty: 200 3RF Rx Instructions: 3x/day (DME) pressure relief cushion See Rx Instructions .Route .MEDSUPPLY Qty: 1 0RF Rx Instructions: daily (DME) FreeStyle Lucy 3 Sensor Device See Rx Instructions .Route Qty: 6 3RF Rx Instructions: every 14 days buspirone 30 mg tablet 30 mg PO BID (DME) FreeStyle Lucy 3 [place] Misc See Rx Instructions .Route Qty: 1 0RF Rx Instructions: As directed isosorbide mononitrate 30 mg tablet extended release 24 hr 60 mg PO DAILY Qty: 180 3RF (DME) BD Insulin Syringe (half unit) 0.3 mL 31 gauge x 5/16 syringe See Rx Instructions .Route Qty: 400 3RF Rx Instructions: As directed (DME) pen needle, diabetic 32 gauge x 5/32 needle See Rx Instructions .Route Qty: 1200 3RF Rx Instructions: four times daily Discharge Orders: Discharge Order (Routine); Ordered 07/07/25 Ordered By: Bernadette Tucker Activity on Discharge: As tolerated Stand Alone Forms: Patient Portal Discharge page Print Language: Nicaraguan Activity Restrictions/Additional Instructions: Wound care recommendations: Buttocks: Off Load Pressure with Q2 hr turns and use of pillows - Cleanse with PH balance spray or wipes, pat dry. ?Apply thin layer of Triad to wound bed - only pat and dab no scrub and rub when soiling occurs. Reapply thin layer PRN after each episode of incontinence. Care Plan Goals: see below Health Concerns: acute copd exacerbation right buttock wound Plan of Treatment: complete course of steroids as prescribed call to re-schedule appointment with pulmonology schedule outpatient follow up appointment with wound care Assessment: see discharge summary
--- NOTE | 2025-07-07 13:26 | MHC.CM.PN ---
PT CLEARED TO DC HOME TODAY WITH RESUMPTION OF [employer] [employer] [facility] VISITS) DCS FAXED TO [facility] [phone]
== END 2025-07-07 11:35 | disposition home or self-care (01) | DRG 140 ==
LOC: HO.ED 16:51 → HO.EDOVER 16:59 → HO.S3 22:48
PROVIDERS: Emergency Medicine; Physician Assistant Medical; Admitting Provider Nurse Practitioner Acute Care; Emergency Provider Emergency Medicine Emergency Medical Services; PCP Physician Assistant; Visit Provider Physician Assistant Medical
DX: J44.1 Chronic obstructive pulmonary disease with (acute) exacerbation (principal); J96.21 Acute and chronic respiratory failure with hypoxia; N17.9 Acute kidney failure, unspecified; I13.0 Hypertensive heart and chronic kidney disease with heart failure and stage 1 through stage 4 chronic kidney disease, or unspecified chronic kidney disease; I50.22 Chronic systolic (congestive) heart failure; E11.22 Type 2 diabetes mellitus with diabetic chronic kidney disease; E11.65 Type 2 diabetes mellitus with hyperglycemia; Z99.81 Dependence on supplemental oxygen; Z68.43 Body mass index [BMI] 50.0-59.9, adult; E66.01 Morbid (severe) obesity due to excess calories; G47.33 Obstructive sleep apnea (adult) (pediatric); N18.30 Chronic kidney disease, stage 3 unspecified; F41.9 Anxiety disorder, unspecified; Z20.822 Contact with and (suspected) exposure to COVID-19; Z71.3 Dietary counseling and surveillance; Z87.891 Personal history of nicotine dependence; Z79.4 Long term (current) use of insulin; Z79.899 Other long term (current) drug therapy
CPT/HCPCS: 36415; 71045; 80048; 80076; 82803; 82947; 83735; 83880; 84484; 85025; 85027; 87040; 87633; 87637; 93005; 94640; 99285; J0696; J1650; J2919; J3475; J7120

== ENCOUNTER → 2025-07-04 11:03 | Outpatient (BNV) | payer OTHER, SELFPAY | PROVIDERS: Emergency Provider Emergency Medicine Emergency Medical Services; PCP Physician Assistant; Visit Provider Internal Medicine Cardiovascular Disease | DX: R06.02 Shortness of breath (principal) | CPT/HCPCS: 93010 ==

== ENCOUNTER → 2025-07-04 11:03 | Outpatient (BNV) | payer OTHER, SELFPAY | PROVIDERS: PCP Physician Assistant; Visit Provider Radiology Diagnostic Radiology | DX: I51.7 Cardiomegaly (principal) | CPT/HCPCS: 71045 ==

== ENCOUNTER → 2025-07-04 16:49 | Outpatient (BNV) | payer OTHER, SELFPAY | PROVIDERS: Admitting Provider Nurse Practitioner Acute Care; Emergency Provider Emergency Medicine Emergency Medical Services; PCP Physician Assistant; Visit Provider Nurse Practitioner Acute Care | DX: J44.1 Chronic obstructive pulmonary disease with (acute) exacerbation (principal); J96.21 Acute and chronic respiratory failure with hypoxia; J45.909 Unspecified asthma, uncomplicated | CPT/HCPCS: 99222; 99232; 99239 ==

== ENCOUNTER 2025-07-11 08:45 | Outpatient (REF) | payer OTHER, SELFPAY ==
--- OUTSIDE RECORDS SUMMARY | 2025-07-11 10:11 | XMS_ITS | Data Portability ---
Author Organization [facility], Main Office Address [address], [address] [place] [address] Care Team Providers Care Film Recordist Name Role Phone SISI WATSON Primary Care Provider [facility] ([facility] OTHER Assessment Encounter Date Assessment Date Assessment LastModified by Organization Details LastModified Time 11/17/2022 11/17/2022 11/13/22 wbc 11.9, hgb 9.9, plt 226, na 140, k 4.9, bun 103, creat 3.30, LFTs normal [email or web address] Not available 11/17/2022 13:30:40 11/24/2022 11/24/2022 11/13/22 [...] Recorded Time Chronic kidney disease stage 3A 316511463 Active 2022 Andi Mejia MD [address], [address], [place], [address], [facility] 3 09:24:07 Morbid obesity 577618449 Active 2022 Andi Mejia MD [address], [address], [place], [address], [email or web address] 3 09:29:42 Chronic combined systolic and diastolic heart failure 6816348862884 00 Active 2022 Andi Mejia MD [address], [address], [place], [address], [facility] 3 09:29:52 Nonischemic congestive cardiomyopa thy 099122579379 Active 2022 Andi Mejia MD [address], [address], [place], [address], [facility] 3 09:30:08 Anxiety 92131535 Active 2022 Andi Mejia MD [address], [address], [place], [address], [facility] 3 09:30:15 Depressive disorder 67602527 Active 2022 Andi Mejia MD [address], [address], [place], [address], [facility] 3 09:30:19 Asthma 544548885 Active 2022 Andi Mejia MD [address], [address], [place], [address], [facility] 3 09:30:26 Chronic pain 78879053 Active 2022 Andi Mejia MD [address], [address], [place], [address], [email or web address] 3 09:30:32 Chronic constipatio n 937900608 Active 2022 Andi Mejia MD [address], [address], [place], [address], [facility] 3 09:30:40 Chronic obstructive pulmonary disease 12290733 Active 2022 Andi Mejia MD [address], [address], [place], [address], [email or web address] 3 09:30:44 Diabetic peripheral neuropathy 663570703 Active 2022 Andi Mejia MD [address], [address], [place], [address], [place] [facility] 3 09:30:56 Diabetes mellitus 48701935 Active 2022 Andi Mejia MD [address], [address], [place], [address], [email or web address] 3 09:31:01 Mixed hyperlipide matilda 131961413 Active 2022 Andi Mejia MD [address], [address], [place], [address], [email or web address] 3 09:31:09 Essential hypertensio n 61969109 Active 2022 Andi Mejia MD [address], [place], [address], [email or web address] 3 09:31:15 Obstructive sleep apnea syndrome 48545526 Active 2022 Andi Mejia MD [address], [address], [place], [address], [email or web address] 3 09:31:20 Panic disorder 831134701 Active 2022 Andi Mejia MD [address], [address], [place], [address], [facility] 3 09:31:26 Coronary arterioscle rosis 55160834 Active 2022 Andi Mejia MD [address], [address], [place], [address], [facility] 3 09:31:30 Chronic kidney disease stage 4 337467735 Active 2022 Carolina Dennis MD [address], [address], [place], [address], [facility] 3 18:36:56 Acute hyponatremi a 6667576 Active 2022 Carolina Dennis MD [address] [facility], [address], [place], [address], [facility] 3 18:43:11 Asthenia 63655230 Active 2022 Carolina Dennis MD [address] [facility], [address], [place], [address], [facility] 3 18:43:57 Problem Notes None recorded. Medical Equipment None Reported. Allergies Allergen ID Allergen Name Allergen Category Reaction Reaction Severity Criticality Documentation Date Start Date Code Code System Note Provider Name and Address Organization Details Recorded Time 65080 ibuprofen medicatio n Not available Not available Not available 10/08/2022 5640 RxBlake Mejia MD [address] [facility], [address], [place], [address], [facility] [email or web address] [facility] 3 09:16:39 98961 Tylenol medicatio n Not available Not available Not available 10/08/2022 3 RxBlake Mejia MD [address], [address], [place], [address], [facility] [employer] 3 09:16:43 70831 morphine medicatio n Not available Not available Not available 10/08/2022 [id number] Magdaleno Mejia MD [address], [address], [place], [address], [facility] 3 09:16:48 Medications Name Sig Start Date [...] 97.9 [degF] 124/70 mm[Hg] CHAKA Hawkins [address] [facility], [facility] [address], [place], [address], [employer] [facility] 3 07:57:14 Date Recorded Heart rate Respiratory rate Body temperature Oxygen saturation Provider Name and Address Organization Details Last Updated DateTime 11/18/2022 74 /min 16 /min 97.8 [degF] 96 % PEDRO MONAE NP [address] [facility], [facility] [address], [place], [address], [employer] 3 15:33:19 Date Recorded Body weight Body mass index (BMI) Body height Heart rate Respiratory rate Body temperature Oxygen saturation Systolic And Diastolic Provider Name and Address Organization Details Last Updated DateTime 3 280087. 54 g 44.6 kg/m2 157.48 cm 80 /min 18 /min 97.6 [degF] 96 % 148/82 mm[Hg] Carolina Dennis MD [address] [facility], [facility] [address], [place], [address], [employer] 3 18:00:03 Social History Question Answer Notes LastModified by Organizat ion Details LastModified Time Tobacco Smoking Status Former Smoker quit 1999 30+ pack year hx Andi Mejia MD [address] [facility] [address], [place], [address], [employer] 10/08/2022 11:59:39 Do You Have An Advance Directive? Yes Information not available 10/08/2022 What Is Your Code Status? Full Code [email or web address] Information not available 10/08/2022 Where Do You Live? Apartment Information not available 11/24/2022 Legal Guardian? No Information not available 11/24/2022 Do You Have A Medical Power Of Manager Scheduling? Yes Information not available 11/24/2022 What Was [...] Organization Details LastModified Time Mother Diabetes mellitus Not available 2022 09:18:22 Father Diabetes mellitus [...] 09/23/2023 15:30:16 pneumococcal polysaccharide PPV23 2 completed [facility] 09/23/2023 15:31:52 Past Encounters Encounter ID Performer Location Encounter Start Date Encounter Closed Date Diagnosis/Indication Diagnosis SNOMED-CT Code Diagnosis ICD10 Code Diagnosis IMO Codes Diagnosis Note [id number] Andi Mejia MD [facility] on [address] [place] [address] 10/08/2022 09:16:00 10/13/2022 13:18:32 Acute kidney injury 84811444 N17.8 ARF on CRF stage 3 at baseline however appear to be stage 4improved with IVFmonitor renal functionav oid nephrotoxi c meds as ablenephro consult Chronic ki dney disease stage 3A 530097408 N18.31 carrying dx of crf stage 3 however appear stage 4 Asthenia 19942810 R53.1 severe deconditio ningPT OT eval and treatmonit or need for increased services in community vs need to transition to LTC Acute hyponatremia 68445 02 E87.1 Hv=626 in hospitalre peat bmp and monitor lytes Morbid obesity 910777356 E66.01 dietary to eval Chronic co mbined systolic and diastolic heart failure 9388842206 48914 I50.42 bumex 2 mg qam 1 mg qpmspirono lactone 25 mg bidmonitor respirator y and fluid statusmoni tor renal function with recent arf on crf Nonischemi c congestive cardiomyopathy 3623277100 04 I42.0 added to PMHcontinu e current meds Anxiety 36754087 F41.1 fluoxetine 40 mg qdrisperda l 1 mg bid question dx of bipolarto contact PCP for full dx listpsych to evalmonito r for behaviors Asthma 333202651 J45.99 8 at baselineal buterol MDI prn Depressive disorder 3548 9007 F33.8 see above Chronic pain 54013385 G8 9.29 gabapentin 400 mg tidoxycodo ne 5 mg q 6 prnmonitor for effect Chronic constipation 236 180590 K59.09 bowel protocol Chronic ob structive pulmonary disease 64302450 J41.1 carrying dxadded to PMHmonitor respirator y status Diabetic p eripheral neuropathy 570462320 E11.42 gabapentin 400 mg tidmonitor for effect Diabetes mellitus 510305 09 E11.21 lantus 50 units bidSS insulinmon itor blood glucose and need to titrate Mixed hyperlipidemia 267 263113 E78.2 simvastati n 20 mg qdcontinue d Essential hypertension 28507108 I10 appears to have difficult to control htn current onbumex 2 mg qam 1 mg qpmspirono lactone 25 mg bidmetopro lol 50 mg qdnorvasc 5 mg qdimdur 30 mg qdhydralaz ine 25 mg bidmonitor bp and need to titrate Obstructiv e sleep apnea syndrome 45515629 G47.33 carrying dx added to PMH Panic disorder 852611626 F41.0 see aboveon risperdalp sych to eval Coronary arteriosclerosis 57747897 I25.10 metoprolol 50 mg qdASA 81 mg qdsimvasta tin 20 mg qdcontinue d [id number] AHSAN MCCONNELL NP [facility] on [address] [place] [address] 10/14/2022 11:46:11 10/16/2022 16:00:13 Acute kidney injury 75479336 N17.8 ARF on CRF stage 3 at baseline however appear to be stage 4improved with IVFmonitor renal function - check CMP in am x 1avoid nephrotoxi c meds as able; is on diureticsn ephro consult prn Chronic ki dney disease stage 3A 849248859 N18.31 carrying dx of crf stage 3 however appear stage 4 Asthenia 89515848 R53.1 severe deconditio ningPT OT eval and treatmonit or need for increased services in community vs need to transition to LTC Acute hyponatremia 36419 02 E87.1 Kk=198 in hospitalCM P x 1 in am Morbid obesity 588740830 E66.01 dietary to evalChange diet from regular to carb control Chronic co mbined systolic and diastolic heart failure 9208383995 33947 I50.42 bumex 2 mg qam 1 mg qpmspirono lactone 25 mg bidmonitor respirator y and fluid statusmoni tor renal function with recent arf on crf - CMP in am Nonischemi c congestive cardiomyopathy 3431368909 04 I42.0 added to PMHcontinu e current meds Anxiety 18602874 F41.1 fluoxetine 40 mg qdrisperda l 1 mg bid question dx of bipolarto contact PCP for full dx list - re-request edpsych to cassie mccain for behaviors Asthma 716119976 J45.99 8 at baselineal buterol MDI prn Depressive disorder 3548 9007 F33.8 see above Chronic pain 55314421 G8 9.29 gabapentin 400 mg tidoxycodo ne 5 mg q 6 prnmonitor for effect Chronic constipation 236 757871 K59.09 Add senna-s 2 tabs dailybowel protocolMo nitor and adjust as needed Chronic ob structive pulmonary disease 42510225 J41.1 carrying dxadded to PMHmonitor respirator y status Diabetic p eripheral neuropathy 193881258 E11.42 gabapentin 400 mg tidmonitor for effect Diabetes mellitus 755850 09 E11.21 lantus 50 units bidSS insulinmon itor blood glucose and need to quozxyuD3Q x 1 in am Mixed hyperlipidemia 267 793888 E78.2 simvastati n 20 mg qdCMP, lipids x 1 in amcontinue d Essential hypertension 78726888 I10 appears to have difficult to control htn current onbumex 2 mg qam 1 mg qpmspirono lactone 25 mg bidmetopro lol 50 mg qdnorvasc 5 mg qdimdur 30 mg qdhydralaz ine 25 mg bidmonitor bp and need to titrate Obstructiv e sleep apnea syndrome 48370424 G47.33 carrying dx added to PMH Panic disorder 907320863 F41.0 see aboveon risperdalp sych to eval Coronary arteriosclerosis 97161249 I25.10 metoprolol 50 mg qdASA 81 mg qdsimvasta tin 20 mg qdcontinue d [id number] Andi Mejia MD [facility] on [address] [place] [address] 10/22/2022 15:37:47 10/24/2022 12:17:55 Chronic kidney disease stage 3A 571497472 N18.31 carrying dx of crf stage 3 however appear stage 4monitor renal functionla bs ordered for tomorrow then q tuesdaysav oid nephrotoxi c meds as ablerefer to nephrowill attempt voiding trial in am with bladder scan q shift and straight cath if > 300cc Asthenia 87239300 R53.1 improving with therapynow able to ambulate up to 100 feet with walker with contact guardmonit or need for increased services in community vs need to transition to LTC Acute hyponatremia 40646 02 E87.1 [facility] and monitor lytesorder ed for tomorrow Chronic co mbined systolic and diastolic heart failure 2300166149 21595 I50.42 bumex 2 mg qam 1 mg qpmspirono lactone 25 mg bidmonitor respirator y and fluid statusmoni tor renal function with recent arf on crf Essential hypertension 23138878 I10 bumex 2 mg qam 1 mg qpmspirono lactone 25 mg bidmetopro lol 50 mg qdnorvasc 5 mg qdimdur 30 mg qdhydralaz ine 25 mg bidmonitor bp and need to titrate [id number] CHAKA Hawkins [facility] on [address] [place] [address] 10/27/2022 11:28:29 10/29/2022 10:44:01 Acute constipation 454218932 K59.09 xray of abdomen for unknown amount [...] d Chronic ki dney disease stage 3A 993377939 N18.31 bun/creat remains elevated, though lab results as above slightly better on 10/23/22avoi d nephrotoxi c meds as ablerefer to nephro - will notify manager of photography Acute hyponatremia 14043 02 E87.1 Na 139 on 10/23/22labs weekly on Tuesdays Chronic co mbined systolic and diastolic heart failure 4009347965 75343 I50.42 compensate dbumex 2 mg q am, 1 mg q pmspironol actone 25 mg bidmonitor fluid statusmoni tor renal function as above Essential hypertension 35489623 I10 ortho BPs bid x 3 dayswill dc hydralazin e 25 mg bid nowbumex 2 mg q am, 1 mg q pmspironol actone 25 mg bidmetopro lol 50 mg qdnorvasc 5 mg qdimdur 30 mg qdmonitor bp and need to titrate [id number] Andi Mejia MD [facility] on [address] [place] [phone] 10/28/2022 12:36:51 10/30/2022 15:40:26 Panic disorder 086264520 F41.0 appears to be experienci ng panic attackvita l stablestar t ativan 0.5 mg q 4 may repeat in 30 min for effectscri pt and e kit script writtento ED for acute decompensa tionof note labs were ordered for today however not drawn [id number] Andi Mejia MD [facility] on [address] [place] [address] 10/31/2022 11:44:27 11/03/2022 16:09:35 Orthostatic hypotension 77520627 I95.1 with therapy stating bp dropped to 80's/40's when standing Essential hypertension 02961526 I10 see abovebumex 2 mg qam 1 mg qpmspirono lactone 25 mg bidmetopro lol 50 mg qd(norvasc 5 mg qd now discontinu ed)imdur 30 mg qdhydralaz ine 25 mg bidmonitor bp and need to titrate Pain of le ft shoulder joint 2070358512 9918939 M25.512 probable underlying OAx ray orderedawa it results Panic disorder 459321230 F41.0 patient now much improved and back to baselinemo nitor need to titrate ativan [id number] EPIFANIO [facility] on [address] [place] [address] 11/13/2022 13:45:01 11/18/2022 16:00:29 Essential hypertension 85152190 I10 continue bumex 2 mg qam 1 mg qpmspirono lactone 25 mg bidmetopro lol 50 mg qdimdur 30 mg qdhydralaz ine 25 mg bidmonitor bp and need to titrate Chest pain 80855564 R07. 9 see HPIno changes to plan of care despite elevated D dimer and tropnot felt to be pleuriticO rdered prn nitro for chest pain Chronic ki dney disease stage 3A 928653250 N18.31 likely moving to end stage with creat of 103 and bun 3.30encour age PO fluidsavoi d nephrotoxi c meds Anxiety 56360610 F41.1 ativan 0.5 mg q 4 hours PRNcontinu e [id number] CHAKA Hawkins [facility] on [address] [place] [address] 11/17/2022 07:53:39 11/19/2022 11:29:11 Chest pain 84977998 R07.9 no chest pain while in ED last night and EKG reassuring no changes to plan of care despite elevated D dimer and tropnot felt to be pleuriticp rn nitro available for chest pain Essential hypertension 34533556 I10 bp normalbume x 2 mg q am, 1 mg q pmspironol actone 25 mg bidmetopro lol 50 mg qdimdur 30 mg qdmonitor bp and adjust meds prn Chronic ki dney disease stage 3A 568891909 N18.31 likely moving to end stage with creat of 103 and bun 3.30encour age PO fluidsavoi d nephrotoxi c medsmonito r renal functionre jerry to nephro if pt and family agree Pain of le ft shoulder joint 3169805616 0062320 M25.512 is chronicno fracture on xray in ED though does have osteophyte s and joint space narrowingc ontinue tizanidine 4 mg qhs 20790220 PEDRO MONAE NP [facility] on [address] [place] [address] 11/18/2022 14:37:50 11/20/2022 14:56:24 Chronic combined systolic and diastolic heart failure 1259992654 07946 I50.42 compensate d bumex 2 mg q am, 1 mg q pm spironolac tone 25 mg bid monitor fluid status monitor renal function Anxiety 66263256 F41.1 ativan 0.5 mg q 4 hours PRNpsych prn [id number] Carolina Dennis MD [facility] on [address] [place] [phone] 11/24/2022 17:49:54 11/28/2022 12:00:50 Chronic combined systolic and diastolic heart failure 6886061416 22370 I50.42 Appears euvolemic. Continue metoprolol 50 mg qd, bumex 2 mg q am and 1 mg q pm and spironolac tone 25 mg BIDMay need to decrease diuretics depending on renal functionMo nitor resp. status, fluid status, wts and labs. Anxiety 96699348 F41.1 Continue fluoxetine 30 mg qd and lorazepam 0.5 mg q 4 hrs prn.Monito r mood.Psych following. Essential hypertension 79216258 I10 Last check borderline , but otherwise good.Katherin nue bumex 2 mg q am and 1 mg q pm, spironolac tone 25 mg BID, metoprolol 50 mg qd, and imdur 30 mg qd.BP not being checked regularly, will order for M&F.Monito r BP and labs. Pain of le ft shoulder joint 1929532560 4246004 M25.512 Chronic pain with evidence of moderately severe OA per xray.With allergies to APAP, ibuprofen and morphine.W ill continue oxycodone 5 mg q 6 hrs prn.Will use ice, heat and PT and consider referral for steroid injection. Orthostati c hypotension 19252671 I95.1 Happened one time with rehab.No further episodes.M onitor. Acute constipation 9006 K59.09 Improved on increased bowel regimen.Co ntinue bowel meds as ordered.Mo nitor bowel function. Acute hyponatremia 84289 02 E87.1 No labs since 11/13, will reorder weekly labs. Asthenia 03105729 R53.1 Remains deconditio sissy.Contin ues to need PT/OT for strengthen ing, balance, gait training, safety and function.C ontinue fall precaution s.Monitor for safety.Mon itor for needs in terms of outpt services versus LTC. Morbid obesity 618777676 E66.01 Continue to encourage healthy eating.Mon itor. Asthma 957660281 J45.99 8 As above. Depressive disorder 3548 9007 F33.8 see above Chronic pain 48964257 G8 9.29 With renal failure rec for gabapentin is qd.Will change to gabapentin 600 mg qd and continue tizanidine 4 mg qhs, and oxycodone 5 mg q 6 prnMonitor sxs Chronic ob structive pulmonary disease 32157520 J41.1 Combined obstructiv e and restrictiv e disease per PFTS in past.Katherin nue Flovent 110 mcg 2 puffs BID, and albuterol HFA 2 puffs q 4 hrs prn.Monito r resp status. Diabetic p eripheral neuropathy 789785747 E11.42 As above Diabetes mellitus 512300 09 E11.21 Sugars in good control since here. HgA1C was 8.5 in 3Cont inue lantus 50U BID and SSI.Monito r fingerstic ks TID and HgA1C q 3 months. Mixed hyperlipidemia 267 323787 E78.2 Continue simvastati n 20 mg qdMonitor labs yearly Obstructiv e sleep apnea syndrome 57584149 G47.33 Not on CPAP.Consi jo-ann sleep study. Coronary arteriosclerosis 33664749 I25.10 No recent sxs (recent chest pain not thought to be cardiac.)C ontinue meds as above.F/U with cardio prn. Chronic ki dney disease stage 4 508019809 N18.4 No labs since 11/13.With severely elevated BUN.Will order labs for tomorrow.N eeds renal consult.Wi ll be real balancing act with management of CHF and CKD. [id number] Andi Mejia MD [facility] on [address] [place] [address] 11/26/2022 14:50:28 11/28/2022 12:50:15 Acute kidney injury 93580801 N17.8 ARF on CRF stage 3 at baseline however appear to be stage 4improved with IVFmonitor renal functionav oid nephrotoxi c meds as ablenephro consult Chronic ki dney disease stage 3A 054266718 N18.4 see HPImonitor renal function on bumex and spironolac tone for CHFrepeat bmp at f/u with pcp Asthenia 99594757 R53.1 will need 24 hour supervisio n now in place in community Chronic co mbined systolic and diastolic heart failure 2295566104 68001 I50.42 bumex 2 mg qam 1 mg qpmspirono lactone 25 mg bidmonitor respirator y and fluid statusmoni tor renal function with recent arf on crf Coronary arteriosclerosis 40666513 I25.10 metoprolol 50 mg qdASA 81 mg qdsimvasta tin 20 mg qdcontinue d Health Concerns Section Related Observation LastModified by Organization Detai ls LastModified Time None Recorded Concern Status LastModified by Organization Details LastModified Time None Recorded Advance Directives Directive Y: Payers Insurance Date Sequence Insurance Name Policy Number Policy Drake Covered Member ID Drake Member ID Guarantor Name 12/25/2023 1 [place] [employer] Mueller [id number] Testta Notes Date Note Type Note Provider Name [...] She appears very anxious. EPIFANIO CHEN [address] [facility], [address], [place], [address], [facility] [employer] [facility] 11/13/2022 14:07:45 3 text/html pt seen today for acute telemedicine visit. last night pt called 911 and sent herself out to [facility] ED stating per nurse that she [...] to SNF for rehab. CHAKA Hawkins [address], [address], [place], [address], [facility] [employer] [facility] [employer] [facility] 11/17/2022 13:34:21 3 text/html ROS as noted in the HPI seen today for acute rounding visit, CAOx3 in the day room in her wheelchair, she is weepy saying my legs don't work anymore , chatted withher for a few minutes and she calmed, lungs clear, ate well at lunch PEDRO MONAE NP [address], [address], [place], [address], [facility] [employer] 11/19/2022 10:31:14 3 text/html This is a 62 yo woman who I am seeing today for a routine MD 60 day reeval rounding visit. She was admitted here on 10/03 after spending several days at the [facility] ED awaiting placement. She had been seen at the [facility] ED several times in the month prior. [...] since she was admitted to this facility. [facility] concurs and [facility] records show this also. pt is eating 75-100% of all her meals. currently on senna 2 qhs and colace daily. pt is making progress with rehab, walking up to 165 feet. ghotra cath recently removed and pt is voiding normally. Carolina Dennis MD [address] [facility], [address], [place], [address], [employer] 11/24/2022 20:21:29 3 text/html Patient is a [...] home. Will require 24/7 supervision with [facility], VEHICLE CHECK IN CLERK and meals on wheels in place, will be living with daughter. Discussed with SW. Of note labs were ordered yesterday, called labs for result with significant improvement in bun/cre Andi Mejia MD [address] [place] [address], [address], [place], [address], [facility] - [employer] 11/26/2022 14:57:47 OBGyn Episode No OBEpisode recorded.
[2025-07-11 10:38] LABS: Appearance Urine Clear; Glucose Urine UA Negative (Negative); PH 5.0 (5.0-9.0); Specific Gravity - Urine 1.015 (1.005-1.025); UMIC TRIGGER UA YES
[2025-07-11 10:43] LABS: MANUAL DIFF FLAG NO
[2025-07-11 10:47] LABS: Hematocrit 36.2 % (37.0-47.0); Hemoglobin 11.4 g/dl (12.0-16.0); Imm Gran Abs Auto 0.15 X10*3/uL (0.00-0.03); Imm Gran Pct Auto 1.3 % (0.0-0.4); Lymphocytes Absolute Auto 1.2 X10*3/uL (1.2-4.9); Mean Corpuscular HGB Conc 31.5 g/dl (31.0-35.0); Mean Corpuscular Hemoglobin 29.2 pg (27.0-33.0); Mean Corpuscular Volume 92.8 fL (80.0-98.0); NRBC Abs Auto 0.000 X10*3/uL (0.0-0.012); NRBC Pct Auto 0.0 /100WBC (0.0-0.2); Platelet Count 152 X10*3/uL (160-400); Red Blood Count 3.90 X10*6/uL (4.20-5.50); White Blood Count 11.5 X10*3/uL (4.8-10.8)
[2025-07-11 11:15] LABS: Alanine Aminotransferase 9 U/L (0-31); Albumin Level 4.2 g/dL (3.5-5.0); Alkaline Phosphatase 79 U/L (39-117); Anion Gap 15 (12-20); Aspartate Amino Transferase 15 U/L (5-31); Blood Urea Nitrogen 45 mg/dL (9-16); Calcium 8.6 mg/dL (8.4-10.2); Carbon Dioxide 28 mmol/L (22-29); Chloride 103 mmol/L (96-108); Cholesterol 115 mg/dL (<200); Estimated Glomerular Filt Rate 29; HDL Cholesterol 32 mg/dL (>40); Potassium 4.0 mmol/L (3.3-5.1); Sodium 142 mmol/L (135-145); Total Protein 6.4 g/dL (6.5-8.0); Triglycerides 195 mg/dL (<150)
[2025-07-11 11:32] LABS: Thyroid Stimulating Hormone 1.13 uIU/mL (0.32-4.0)
== END 2025-07-11 08:46 | disposition home or self-care (01) ==
LOC: HO.10HDL 08:45
PROVIDERS: Internal Medicine; Internal Medicine Hypertension Specialist; PCP Physician Assistant; Visit Provider Orthopaedic Surgery
DX: J96.01 Acute respiratory failure with hypoxia (principal); R05.8 Other specified cough; J44.89 Other specified chronic obstructive pulmonary disease; G47.33 Obstructive sleep apnea (adult) (pediatric); I11.0 Hypertensive heart disease with heart failure; I50.9 Heart failure, unspecified; I25.10 Atherosclerotic heart disease of native coronary artery without angina pectoris; F41.0 Panic disorder [episodic paroxysmal anxiety]; F32.A Depression, unspecified; Z79.899 Other long term (current) drug therapy; Z91.199 Patient's noncompliance with other medical treatment and regimen due to unspecified reason; Z99.89 Dependence on other enabling machines and devices; M17.0 Bilateral primary osteoarthritis of knee; H26.9 Unspecified cataract; E11.65 Type 2 diabetes mellitus with hyperglycemia; Z79.4 Long term (current) use of insulin; R42 Dizziness and giddiness
CPT/HCPCS: 20610; 36415; 80053; 80061; 81001; 82248; 83036; 83880; 84443; 85025; 99212; J2003; J7323

== ENCOUNTER 2025-07-11 08:45 | Outpatient (AMB) | payer OTHER, SELFPAY ==
--- NOTE | 2025-07-11 08:54 | A.OFFVIS_ITS ---
Intake Visit Reasons: INJ- Bilateral Knee Euflexxa #1 Intake Note: Lupis is a 65 year old female who presents with complaints of progressively worsening bilateral knee pains. The patient states that her pains have gotten worse over the last few years. She has failed the last 3 months of conservative treatment which has included a home exercise program, physical therapy exercises, topical creams and anti-inflammatory medicines. The patient states that she can not tolerate Tylenol. The patient is concerned about the affects of cortisone injections on her diabetes. She has not had a viscosupplementation injection. She has tried heat and ice which gave her minimal relief. At this point her bilateral knee pains are interfering with her activities of daily living and her ability to sleep well through the night. The patient does walk with a rolling walker because of her pain. Allergies ibuprofen Allergy (Intermediate, Verified 07/11/25 10:16) vomiting, itching acetaminophen (Tylenol) Allergy (Unknown, Verified 07/11/25 10:16) Unknown codeine Adverse Reaction (Severe, Verified 07/11/25 10:16) Anaphylaxis morphine Adverse Reaction (Intermediate, Verified 07/11/25 10:16) vomiting vancomycin Adverse Reaction (Intermediate, Verified 07/11/25 10:16) Itching Medication List - Last Reconciled 07/11/25 by Mike Valdez MD [ADULT PULL UP XL 4 per day NS] albuterol sulfate 90 mcg/actuation (Ventolin HFA) 2 puffs inhalation Q4-6H PRN allopurinol 100 mg PO DAILY BD Insulin Syringe (half unit) (insulin syr/ndl U100 half dionna) As directed NS blood-glucose meter (FreeStyle Lite Meter kit) As directed checks POC 4 X/day bumetanide 2 mg PO DAILY 90 days buspirone 30 mg PO BID [Chux 3x/day] clonidine HCl 0.1 mg PO TID PRN Comfort EZ Pen [place] (pen needle, diabetic) 4 times daily NS [Commode bags 4x/day NS] dextromethorphan-guaifenesin 10-100 mg/5 mL 5 mL PO Q8H PRN duloxetine 60 mg PO DAILY FreeStyle Lancets (lancets) four times daily NS FreeStyle Lucy 3 [place] (blood-glucose,head wood grinder,cont) As directed NS FreeStyle Lucy 3 Sensor (blood-glucose sensor) every 14 days NS FreeStyle Lite Strips (blood sugar diagnostic) four times daily NS gabapentin 400 mg PO BID@0900,1500 insulin glargine (Lantus Solostar U-100 Insulin) 60 units subcut BEDTIME insulin lispro (Humalog U-100 Insulin) See Protocol units subcut TIDAC insulin syringe-needle U-100 (BD Insulin Syringe Ultra-Fine) insulin syringe-needle U-100 (BD Insulin Syringe Ultra-Fine) Four times daily isosorbide mononitrate ER 60 mg (2 x 30 mg) PO DAILY linaclotide (Linzess) 290 mcg PO DAILY lorazepam 0.5 mg PO DAILY PRN metoprolol succinate ER 50 mg PO DAILY [nitrile gloves 4x/day] pantoprazole 20 mg PO BEDTIME@1800 pen needle, diabetic (Comfort EZ Pen [place]) four times daily pen needle, diabetic four times daily prazosin 1 mg PO BEDTIME prednisone 40 mg (2 x 20 mg) PO DAILY 5 days [pressure relief cushion daily] risperidone 1 mg PO BEDTIME sertraline 75 mg PO DAILY simvastatin 20 mg PO BEDTIME tirzepatide (weight loss) (Zepbound) 5 mg subcut WE trazodone 150 - 300 mg PO BEDTIME PRN PFSH Medical History (Updated 07/04/25 @ 16:51 by GUADALUPE Watts) Panic disorder Diabetic nephropathy Cataracts, bilateral DANIEL (obstructive sleep apnea) COPD (chronic obstructive pulmonary disease) NICM (nonischemic cardiomyopathy) Hypertension Chronic respiratory failure with hypoxia Asthma Obesity hypoventilation syndrome CKD (chronic kidney disease) stage 3, GFR 30-59 ml/min Acute on chronic combined systolic and diastolic CHF (congestive heart failure) Morbid obesity Diabetic neuropathy, painful Depression Diabetes Surgical History History of surgery Hx of cholecystectomy Family History Mother HTN (hypertension) Diabetes CAD (coronary artery disease) Father HTN (hypertension) Diabetes CAD (coronary artery disease) Maternal Grandmother CAD (coronary artery disease) Social History Household Members: None Household Members Other:: GRANDSON Housing: House 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 Do you presently have visiting nurse or other home services: No Alcohol intake: current Alcohol intake frequency: holidays/special occasions only Alcohol type: wine Comment: 1:1 Patient Tobacco Use Status: Former Tobacco user Tobacco use type: Cigarette Years Smoked: 38 e-Cigarette/Vaping Use: Never Used Second Hand Smoke Exposure: No Substance Use Type: Former Substance User Advance Directives Date on File: 04/30/23 service: No Current occupational status: disabled Current occupation: rt handed Cognitive needs: Yes (walker, cane) Hearing needs: No Vision needs: Yes (Rx glasses) Physical Exam Extrem Other: Bilateral knee examination shows minimal effusions, palpable crepitus with range of motion, pain with range of motion, no instability Office Procedures AMB Joint Injection/Aspiration Joint Injection/Aspiration Primary Site: Left Knee Prep: site was prepped using aseptic technique Injected: 20 mg of, Euflexxa, with 3 mL of and 1% plain Lidocaine Procedure: The patient tolerated the procedure well Coding 40916 - Large joint Procedure code (CPT) selection complete AMB Joint Injection/Aspiration Joint Injection/Aspiration Primary Site: Right Knee Prep: site was prepped using aseptic technique Injected: 20 mg of, Euflexxa, with 3 mL of and 1% plain Lidocaine Procedure: The patient tolerated the procedure well Coding 55314 - Large joint Procedure code (CPT) selection complete Assessment & Plan Assessment & Plan (1) Osteoarthritis of left knee: Code(s): M17.12 - Unilateral primary osteoarthritis, left knee Category: Medical (2) Osteoarthritis of right knee: Code(s): M17.11 - Unilateral primary osteoarthritis, right knee Category: Medical Plan Ms. Mueller presents with bilateral knee pains due to osteoarthritis. The risks and benefits of bilateral knee Euflexxa viscosupplementation injections were discussed at length with the patient. The patient wished to proceed. She tolerated the 1st set of injections well. She will follow up next week as scheduled. Feel free to call me at any time should questions regarding her orthopedic management arise. I spent 21 minutes in reviewing the patient's records and imaging studies, seeing the patient and documenting in the medical record. Orders: Orders AMB Joint Injection/Aspiration Today M17.12 - Unilateral primary osteoarthritis, left knee AMB Joint Injection/Aspiration Today M17.11 - Unilateral primary osteoarthritis, right knee Coding Level of Care Code Est Pt Level 3 (93600) Add On Problem Visit Only Diagnoses Osteoarthritis of left knee M17.12 Osteoarthritis of right knee M17.11 CPT Codes Coding - 46678 Large joint: 42019 - Large joint ([id number]) Coding - 82741 Large joint: 67136 - Large joint ([id number])
--- OUTSIDE RECORDS SUMMARY | 2025-07-11 09:00 | XMS_ITS | Clinical Summary ---
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
--- OUTSIDE RECORDS SUMMARY | 2025-07-11 09:00 | XMS_ITS | Clinical Summary ---
Author Organization [facility] Address [address] [place] [address] Care Team Providers Care Physical Fitness Trainer Name Role Phone Tavo Huber Allergies Active Allergy Reactions Criticality Noted Date Comments Acetaminophen Unknown Severity: Unknown Ibuprofen Unknown Severity: Unknown Morphine Unknown Severity: Unknown Medications oxyCODONE (ROXICODONE) 5 MG immediate release tablet 2.5 MG PO Q4H PRN pain 7-10 30 tablet 0 2 Active amLODIPine (NORVASC) 10 MG tablet 10 MG PO DAILY 2 Active insulin lispro (HumaLOG) 100 unit/mL injection sliding scale 2 Active gabapentin (NEURONTIN) 400 MG capsule 400 MG PO TID 2 Active bumetanide (BUMEX) 2 MG tablet 2 MG PO DAILY 2 Active simvastatin (ZOCOR) 20 MG tablet 20 MG PO HS 2 Active metoprolol ER (TOPROL-XL) 50 MG 24 hr tablet 100 MG PO DAILY 30 tablet 0 2 Active FLUoxetine (PROzac) 40 MG capsule 40 MG PO DAILY 2 Active fluticasone propionate (FLOVENT HFA) 110 mcg/actuation inhaler 2 PUFF INHALATION BID 2 Active pregabalin (LYRICA) 100 MG capsule 100 MG PO BID 2 Active insulin glargine (LANTUS) 100 unit/mL injection 65 UNIT SUBCUT BID 10 mL 1 2 Active ciprofloxacin (CIPRO) 250 MG tablet 250 MG PO BID 6 tablet 0 2 Active isosorbide mononitrate ER (IMDUR) 30 MG 24 hr tablet 30 MG PO DAILY 2 Active meclizine (ANTIVERT) 25 mg tablet 25 MG PO TID PRN Vertigo 2 Active aspirin 81 MG EC tablet 81 MG PO DAILY 2 Active tiZANidine (ZANAFLEX) 4 MG tablet 4 MG PO HS 2 Active traMADoL (ULTRAM) 50 mg tablet 50 MG PO Q8HR PRN Pain 2 Active insulin lispro (HumaLOG) 100 unit/mL injection Sliding scale 2 Active nystatin (MYCOSTATIN) 100,000 unit/gram powder 1 APPLIC TOPICAL BID 2 Active insulin syringe-needle U-100 1 mL 31 gauge x 5/16 Syrg ML MISCELLANEOUS 2 Active Active Problems Problem Noted Date Diagnosed Date Difficulty in walking, not elsewhere classified 12/14/2021 Other chronic pain 12/14/2021 Immunizations Immunization Administration Dates Next Due Influenza Vaccine - STANDARD - SDV (FLUZONE/FLUARIX/FLULAVAL/AFLURIA) 12/15/2021 Pneumococcal polysaccharide vaccine 23-valent (PPSV23/[id number]) 12/16/2021 Social History Tobacco Use Types Packs/Day Years Used Date Smoking Tobacco: Never Assessed Comments Unknown Sex and Gender Information Value Date Recorded Sex Assigned at Not on file Legal Sex Female 8:18 AM EDT Gender Identity Not on file Sexual Orientation Not on file Last Filed Vital Signs Vital Sign Reading Time Taken Comments Blood Pressure - - Pulse - - Temperature - - Respiratory Rate - - Oxygen Saturation - - Inhaled Oxygen Concentration - - Weight 138 kg (304 lb 10.8 oz) 12/14/2021 6:45 P M EDT Height 158.8 cm (5' 2.5 ) 12/14/2021 6:45 PM EDT Body Mass Index 54.84 12/14/2021 6:45 PM EDT Plan of Treatment Not on file Advance Directives Documents on File Type Date Recorded 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
--- OUTSIDE RECORDS SUMMARY | 2025-07-11 09:00 | XMS_ITS | Encounter Summary ---
Author Organization [facility] Address [address] [place] [address] Care Team Providers Care Allergist/Pediatric Pulmonologist Name Role Phone Tavo Huber Encounter Details Date Type Department Care Team (Late st Contact Info) Description 12/17/2021 Lab [facility] Christian Mcgovern MD [address] [place] [address] Social History Tobacco Use Types Packs/Day Years Used Date Smoking Tobacco: Never Assessed Comments Unknown Sex and Gender Information Value Date Recorded Sex Assigned at Not on file Legal Sex Female 8:18 AM EDT Gender Identity Not on file Sexual Orientation Not on file documented as of this encounter Plan of Treatment Not on file documented as of this encounter Procedures Procedure Name Priority Date/Time Associated Diagnosis Comments CULTURE, SPUTUM (INCL GRAM) Routine 12/17/2021 6:48 AM EDT documented in this encounter Results * Culture, Sputum (Incl Gram) (12/17/2021 6:48 AM EDT) BAL Culture Normal arie DONALDO 12/19/2021 11:14 AM EDT [facility] Smear,Gram Stain Many Neutrophils 12/19/2021 11:14 AM EDT [facility] Smear,Gram Stain Rare Squamous epithelial cells 12/19/2021 11:14 AM EDT [facility] Smear,Gram Stain Many Gram positive cocci in pairs 12/19/2021 11:14 AM EDT [facility] Smear,Gram Stain Many Gram negative rods 12/19/2021 11:14 AM EDT [facility] Smear,Gram Stain Moderate Gram positive rods 12/19/2021 11:14 AM EDT [facility] Smear,Gram Stain Few Gram negative diplococci 12/19/2021 11:14 AM EDT [facility] xOther 12/17/2021 6:48 AM EDT 12/17/2021 10:48 AM EDT us Christian Mcgovern MD MICROBIOLOGY - GENERAL ORDERABL ES Final Result Performing Organization Address [facility]/State/ZIP Co de Phone Number [facility] [phone] [place] [address], documented in this encounter Visit Diagnoses Not on filedocumented in this encounter Care Teams Allergist/Pediatric Pulmonologist Relationship Specialty Start Date End Date Tavo Huber [address] [place] [address] PCP - Insurance Assigned PCP 12/17/21 documented as of this encounter
--- OUTSIDE RECORDS SUMMARY | 2025-07-11 09:01 | XMS_ITS | Encounter Summary ---
Author Organization [facility] Address [address] [place] [address] Phone Care Team Providers Care Porter Head Name Role Phone Tavo Huber MD Primary Care Provider Andi Mejia MD Primary Care Provider [phone] Encounter Details Date Type Department Care Team (Late st Contact Info) Description 10/23/2022 Transcribe Orders [facility] Specimen Processing [address] [place] [address] Andi Mejia MD [address] [facility] [address] [place] [address] [email or web address] Bipolar 1 disorder (Primary Dx) Social History [...] EDT) WBC 8.33 4.00 - 11.00 K/uL [facility] RBC 3.40(L) 3.72 - 5.30 M/uL [facility] HGB 9.3(L) 11.4 - 15.9 g/dL [facility] HCT 29.5(L) 34.2 - 46.8 % [facility] PLT 178 140 - 430 K/uL [facility] MCV 86.8 78.0 - 97.0 fL [facility] MCH 27.4 25.0 - 33.0 pg [facility] MCHC 31.5(L) 32.0 - 36.0 g/dL [facility] RDW 14.3 11.0 - 16.0 % [facility] MPV 9.2 8.4 - 12.8 fl [facility] DIFF METHOD Auto [facility] NEUTS 71.2 43.0 - 75.0 % [facility] LYMPHS 13.7(L) 18.2 - 47.4 % [facility] MONOS 11.5(H) 4.00 - 11.00 % [facility] EOS 2.6 0.0 - 8.0 % [facility] BASOS 0.4 0.0 - 2.0 % [facility] Granulocytes, immature (%) 0.6 0.0 - 0.9 % [facility] ABSOLUTE NEUTS 5.93 1.80 - 7.70 K/uL [facility] ABSOLUTE LYMPHS 1.14 1.00 - 3.10 K/uL [facility] ABSOLUTE MONOS 0.96(H) 0.20 - 0.80 K/uL [facility] ABSOLUTE EOS 0.22 0.00 - 0.80 K/uL [facility] ABSOLUTE BASOS 0.03 0.00 - 0.09 K/uL [facility] Granulocytes, immature 0.05 0.00 - 0.05 K/uL [facility] Blood 10/23/2022 6:20 AM EDT 10/23/2022 8:31 AM EDT us Andi Mejia MD LAB BLOOD BKR ORDERABLES Final R esult [address] [address] * (ABNORMAL) Basic metabolic panel (10/23/2022 6:20 AM EDT) SODIUM 139 133 - 146 mmol/L [facility] CHLORIDE 95(L) 96 - 108 mmol/L [facility] POTASSIUM 4.6 3.3 - 5.1 mmol/L [facility] CO2 30 21 - 35 mmol/L [facility] BUN 102(H) 6 - 19 mg/dL [facility] CREATININE 2.50(H) 0.5 - 1.5 mg/dL [facility] GLUCOSE 137(H) 70 - 99 mg/dL [facility] CALCIUM 8.7 8.4 - 10.3 mg/dL [facility] EGFR 21(L) >59 mL/min/1.7 3m2 [facility] Comment:Estimated glomerular filtration rate calculated using the CKD-EPI refit equation. ANION GAP 19 10 - 20 mmol/L [facility] 10/23/2022 6:20 AM EDT 10/23/2022 8:31 AM EDT us Andi Mejia MD LAB BLOOD BKR ORDERABLES Final R esult Performing Organization Address City/State/[facility] Co de Phone Number [address] [address] documented in this encounter Visit Diagnoses Diagnosis Bipolar 1 disorder- Primary documented in this encounter Additional Health Concerns Infection Onset Date Last Indicated Resolved Time CoV-Risk 11/13/2022 11/13/2022 11/24/2022 1:23 AM EDT documented as of this encounter Care Teams Porter Head Relationship Specialty Start Date End Date Tavo Huber MD [address] [place] [address] [place] [address] PCP - General Internal Medicine 12/21/20 11/16/22 Andi Mejia MD [address] [place] [address] [place] [address] [email or web address] PCP - General Family Medicine 11/17/22 documented as of this encounter Additional Source Comments The information contained in this document represents components of the legal health record. It is not the complete legal health record.[facility]
--- OUTSIDE RECORDS SUMMARY | 2025-07-11 09:01 | XMS_ITS | Encounter Summary ---
Author Organization [facility] Address [address] [place] [address] Phone Care Team Providers Care Striker Out Name Role Phone Andi Mejia MD Primary Care Provider Encounter Details Date Type Department Care Team (Late st Contact Info) Description 11/23/2022 Procedure Pass [facility], Ct Scan - [facility] [address] [place] [address] Social History Tobacco Use Types Packs/Day Years [...] documented as of this encounter Care Teams Striker Out Relationship Specialty Start Date End Date Andi Mejia MD [email or web address] PCP - General Family Medicine 11/17/22 documented as of this encounter Additional Source Comments The information contained in this document represents components of the legal health record. It is not the complete legal health record.[facility]
--- OUTSIDE RECORDS SUMMARY | 2025-07-11 09:01 | XMS_ITS | Encounter Summary ---
Author Organization [facility] Address [address] [place] [address] Phone Care Team Providers Care Copying Machine Mechanic Name Role Phone Andi Mejia MD Primary Care Provider [phone] Encounter Details Date Type Department Care Team (Late st Contact Info) Description 11/23/2022 Procedure Pass [facility], Ct Scan - [facility] [address] [place] [address] Social History Tobacco Use Types Packs/Day Years [...] documented as of this encounter Care Teams Copying Machine Mechanic Relationship Specialty Start Date End Date Andi Mejia MD [email or web address] PCP - General Family Medicine 11/17/22 documented as of this encounter Additional Source Comments The information contained in this document represents components of the legal health record. It is not the complete legal health record.[facility]
--- OUTSIDE RECORDS SUMMARY | 2025-07-11 09:01 | XMS_ITS | Clinical Summary ---
Author Organization [facility] Address [address] [place] [address] Phone Care Team Providers Care Furnace Maintenance Name Role Phone Andi Mejia MD Primary Care Provider [phone] Allergies Active Allergy Reactions Criticality Noted Date [...] file Medical Devices Not on file [place] [address] [address] [facility] [place] [address] 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 It is not the complete legal health record.[facility]
--- OUTSIDE RECORDS SUMMARY | 2025-07-11 09:01 | XMS_ITS | Clinical Summary ---
Author Organization [facility] Address [address] [place] [address] Phone Care Team Providers Care Escrow Processor Name Role Phone Celia Horn Primary Care Provider [phone] Allergies Active Allergy Reactions Criticality Noted Date [...] Office Visit [facility] [address] [address] Yaquelin Bustos ARNP Acute nontraumatic [...] Office Visit [facility] [address] [place] [address] Jesus Gilbert MD [address] [address] Health Maintenance Due Date Last [...] Result from Last 3 Months Insurance Medicaid [place] [facility] Medicaid Care Teams Escrow Processor Relationship Specialty Start Date End Date Celia Horn [address] [place] [address] PCP - General 05/15/25
== END 2025-07-11 09:20 | disposition home or self-care (01) ==
LOC: HO.HOS 08:45
PROVIDERS: PCP Physician Assistant; Visit Provider Orthopaedic Surgery
DX: M17.0 Bilateral primary osteoarthritis of knee (principal)
CPT/HCPCS: 20610; 99213

== ENCOUNTER 2025-07-11 10:13 | Outpatient (AMB) | payer OTHER, SELFPAY ==
--- NOTE | 2025-07-11 10:15 | A.OFFPC_ITS ---
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 Accompanied by: Self / Same As Patient Allergies ibuprofen Allergy (Intermediate, Verified 07/11/25 10:16) vomiting, itching acetaminophen (Tylenol) Allergy (Unknown, Verified 07/11/25 10:16) Unknown codeine Adverse Reaction (Severe, Verified 07/11/25 10:16) Anaphylaxis morphine Adverse Reaction (Intermediate, Verified 07/11/25 10:16) vomiting vancomycin Adverse Reaction (Intermediate, Verified 07/11/25 10:16) Itching Medication List - Last Reconciled 07/11/25 by GUADALUPE Blackman [ADULT PULL UP XL 4 per day NS] albuterol sulfate 90 mcg/actuation (Ventolin HFA) 2 puffs inhalation Q4-6H PRN allopurinol 100 mg PO DAILY BD Insulin Syringe (half unit) (insulin syr/ndl U100 half dionna) As directed NS blood-glucose meter (FreeStyle Lite Meter kit) As directed checks POC 4 X/day bumetanide 2 mg PO DAILY 90 days buspirone 30 mg PO BID [Chux 3x/day] clonidine HCl 0.1 mg PO TID PRN Comfort EZ Pen [place] (pen needle, diabetic) 4 times daily NS [Commode bags 4x/day NS] dextromethorphan-guaifenesin 10-100 mg/5 mL 5 mL PO Q8H PRN duloxetine 60 mg PO DAILY FreeStyle Lancets (lancets) four times daily NS FreeStyle [place] 3 [place] (blood-glucose,implementation consultant,cont) As directed NS FreeStyle Lucy 3 Sensor (blood-glucose sensor) every 14 days NS FreeStyle Lite Strips (blood sugar diagnostic) four times daily NS gabapentin 400 mg PO BID@0900,1500 insulin glargine (Lantus Solostar U-100 Insulin) 60 units subcut BEDTIME insulin lispro (Humalog U-100 Insulin) See Protocol units subcut TIDAC insulin syringe-needle U-100 (BD Insulin Syringe Ultra-Fine) insulin syringe-needle U-100 (BD Insulin Syringe Ultra-Fine) Four times daily isosorbide mononitrate ER 60 mg (2 x 30 mg) PO DAILY linaclotide (Linzess) 290 mcg PO DAILY lorazepam 0.5 mg PO DAILY PRN metoprolol succinate ER 50 mg PO DAILY [nitrile gloves 4x/day] pantoprazole 20 mg PO BEDTIME@1800 pen needle, diabetic (Comfort EZ Pen [place]) four times daily pen needle, diabetic four times daily prazosin 1 mg PO BEDTIME prednisone 40 mg (2 x 20 mg) PO DAILY 5 days [pressure relief cushion daily] risperidone 1 mg PO BEDTIME sertraline 75 mg PO DAILY simvastatin 20 mg PO BEDTIME tirzepatide (weight loss) (Zepbound) 5 mg subcut WE trazodone 150 - 300 mg PO BEDTIME PRN Tobacco use date assessed: 03/21/25 Dental Screening Dental Screen Date: 03/21/25 HPI HPI Comments History of Present Illness Details 65-year-old female with history of asthm a/COPD overlap noncompliant with home O2, DANIEL, HFrEF presenting to the office today for post hospital discharge follow-up. She was recently admitted from 07/04/2012 with acute hypoxemic respiratory failure due to acute COPD exacerbation. X-ray at that time was negative for any acute cardio pulmonary abnormality. Full respiratory panel was negative. BNP was at baseline. She was treated with IV Solu-Medrol as well as DuoNebs. Initially required supplemental O2 but in the last day of discharge, was weaned off of O2. At that time, did not qualify for home O2. Her dyspnea had greatly improved and she did return home. Does have history of heart failure but there was no acute exacerbation and she was continued on baseline medications. Today, she presents for hospital discharge follow-up. She states initially she has been improving on discharge but then symptoms began worsening about 3 days ago. She continues with a productive cough with brown sputum production that is worsening. She is also experiencing increase dyspnea both at rest and with exertion as well as wheezing. Does also endorse orthopnea though this is her baseline. She does have edema in the bilateral lower extremities but reports this is baseline. She has been using her albuterol inhaler twice daily when at baseline she typically only requires this intermittently. At rest, oximetry 91% decreasing to 86% with ambulatory O2. No headaches, fevers, chills, nausea, vomiting, diarrhea, sore throat, chest pain. No PND. Hospital discharge medications reviewed and reconciled Chronic conditions: Type 2 diabetes-due for repeat hemoglobin A1c. Previously controlled with A1c 6.4%. Following with endocrinology. On 5 mg tirzepatide, Lantus and Humalog. Continue monitoring glucose levels with CGM. Due for foot exam. Eye exam is up-to-date 02/13 Hypertension/CAD/CHF-blood pressure controlled 132/80. On metoprolol, isosorbide. Does endorse WHITE but with wheezing. No weight gain, increased edema. Not on diuretics. No recent anginal chest pain. Following with Cardiology Anxiety/depression with panic disorder-following with Dr. Rosenberg. On BuSpar, clonidine, duloxetine, lorazepam, prazosin, Risperdal, trazodone DANIEL-compliant with CPAP Hx syncope- no recurrence Decubitus ulcer-has declined evaluation multiple times both in the office and by VNA. [facility] the [facility]. Unclear staging of the ulcer Concerns: As above ROS: see hpi EXAM: Constitutional - Awake and Alert, No apparent distress Eyes - PERRL Cardiovascular - S1S2, RRR, 1+ ble edma, no JVD Respiratory - Normal lung expansion, increased work of breathing with accessory muscle use. [id number] respiratory distress leaning forward. Coarse lung sounds with diffuse wheezing noted on exam Extremities - no calf tenderness bilaterally, no swelling Skin - Warm/Dry Neurological - Alert & oriented x3 Psychological - \anxious, rocking [facility] Medical History Panic disorder Diabetic nephropathy Cataracts, bilateral DANIEL (obstructive sleep apnea) COPD (chronic obstructive pulmonary disease) NICM (nonischemic cardiomyopathy) Hypertension Chronic respiratory failure with hypoxia Asthma Obesity hypoventilation syndrome CKD (chronic kidney disease) stage 3, GFR 30-59 ml/min Acute on chronic combined systolic and diastolic CHF (congestive heart failure) Morbid obesity Diabetic neuropathy, painful Depression Diabetes Surgical History History of surgery Hx of cholecystectomy Family History Mother HTN (hypertension) Diabetes CAD (coronary artery disease) Father HTN (hypertension) Diabetes CAD (coronary artery disease) Maternal Grandmother CAD (coronary artery disease) Social History Household Members: None Household Members Other:: GRANDSON Housing: House 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 Do you presently have visiting nurse or other home services: No Alcohol intake: current Alcohol intake frequency: holidays/special occasions on ly Alcohol type: wine Comment: 1:1 Patient Tobacco Use Status: Former Tobacco user Tobacco use type: Cigarette Years Smoked: 38 e-Cigarette/Vaping Use: Never Used Second Hand Smoke Exposure: No Substance Use Type: Former Substance User Advance Directives Date on File: 04/30/23 service: No Current occupational status: disabled Current occupation: rt handed Cognitive needs: Yes (walker, cane) Hearing needs: No Vision needs: Yes (Rx glasses) Questionnaire Thrive Questionnaire Date Thrive assessed: 07/05/25 TIMMY-7 AMB Questionnaire TIMMY-7 Date TIMMY - 7 assessed: 03/21/25 Source: Developed by Drs. Song Peters, Joelle Gray, Isael Ohara and colleagues, with an educational desean from [employer]. Physical exam (Primary Care) Tobacco/Smoking Status: Tobacco use Status Tobacco use date assessed 03/21/25 07/11/25 10:18 Patient Tobacco Use Status Former Tobacco user 07/11/25 10:18 Tobacco use type Cigarette 07/11/25 10:18 e-Cigarette/Vaping Use Never Used 07/11/25 10:18 Thrive Assessment: Date of Thrive Assessment Date Thrive assessed 07/05/25 07/11/25 10:18 Coding Level of Care Code Est Pt Level 5 (04308) Add On Problem Visit Only Diagnoses Respiratory distress R06.03 Wheezing R06.2 Productive cough R05.8 Acute hypoxemic respiratory failure J96.01 Hospital discharge follow-up Z51.89 Time Spent (min) 50 Assessment & Plan Assessment & Plan (1) Respiratory distress: Code(s): R06.03 - Acute respiratory distress Category: Medical Plan: Respiratory rate 30-tachypneic. (2) Wheezing: Code(s): R06.2 - Wheezing Category: Medical Plan: Suspect COPD exacerbation, can not confirm if there is a coinciding CHF exacerbation due to increased dyspnea with exertion. She does have edema but reports this is her baseline. (3) Productive cough: Code(s): R05.8 - Other specified cough Category: Medical Plan: Suspect COPD exacerbation. (4) Acute hypoxemic respiratory failure: Code(s): J96.01 - Acute respiratory failure with hypoxia Category: Medical Plan: Likely secondary to COPD exacerbation. Due to distress and excess diltiazem hypoxemia, and respiratory distress, referred to the ED for further evaluation and management. Expect call placed. Placed on 2 L supplemental O2 (5) Hospital discharge follow-up: Code(s): Z51.89 - Encounter for other specified aftercare Category: Medical Plan: Discharge medications reviewed and reconciled. Reviewed hospital H&P, discharge summary, chest x-ray, labs. Plan EMS called for transport to the ED for further evaluation and management of suspected acute hypoxemic respiratory failure related to COPD exacerbation with respiratory distress. She is given DuoNeb in the office and tolerates this well. She is placed on 2 L supplemental O2. Orders: Orders AMB Nebulizer Treatment Today R05.8 - Other specified cough, R06.03 - Acute respiratory distress, R06.2 - Wheezing Medications: New ipratropium-albuterol 0.5 mg-3 mg(2.5 mg base)/3 mL 3 mL inhalation ONCE 3 mL 0RF wheezing R05.8 - Other specified cough, R06.03 - Acute respiratory distress, R06.2 - Wheezing
[2025-07-11 10:29] VITALS: RESP 24
[2025-07-11 10:43] VITALS: RESP 30; O2SAT 86
== END 2025-07-11 11:17 | disposition home or self-care (01) ==
LOC: HO.HMCHD 10:13
PROVIDERS: PCP Physician Assistant; Visit Provider Physician Assistant
DX: J96.01 Acute respiratory failure with hypoxia (principal); R06.2 Wheezing; R05.8 Other specified cough; Z51.89 Encounter for other specified aftercare

== ENCOUNTER 2025-07-11 11:30 | Emergency (ER) | payer OTHER, SELFPAY ==
--- NOTE | ~2025-07-11 | XR_ITS ---
EXAMINATION: XR CHEST 2 VIEWS HISTORY: SOB COMPARISON: Comparison is made with the prior examination dated 12/30/2024. FINDINGS: PA and lateral views of the chest are submitted. The lungs are expanded and clear. There is no pleural effusion, pneumothorax, or pulmonary vascular congestion. The heart is enlarged. There is degenerative disc disease of the spine. XR/XR chest 2V IMPRESSION: Cardiomegaly. No acute cardiopulmonary abnormality. Electronically signed by: Song Erickson MD 07/11/2025 01:43 PM ADIEL
[2025-07-11 11:41] VITALS: BP 148/46; BP 150/80; PULSE 94; PULSE 95; RESP 20; TEMP 36.7; O2SAT 90; O2SAT 97; BMI 48.5
--- NOTE | 2025-07-11 12:08 | PC.NURSE ---
Patient presented to ED via EMS from PCP office for low o2 on ambulation. Patient was recently discharged home for COPD exacerbation. Was at follow up PCP and walking o2 sat was 87-88%. She jumped back up to 93% on 2 liters. Patient stated she does not have oxygen set up at home. Patient on 2 liters here saturating at 95%. Sars/COVID/flu swab sent down. Patient on monitor.
--- NOTE | 2025-07-11 12:16 | PC.NURSE ---
patient noted to be crying in room, stating she is scared and her anxiety is bad. patient reassured that she is safe and on the monitor.
--- NOTE | 2025-07-11 12:21 | PC.NURSE ---
pt arrives via EMS from home, w/ c/o sob pt SPo2 97% on 2l NC pt uses o2 via NC at baseline. visibly anxious, whimpering,sobbing yelling for staff to come in here . t/w in addition to 2 RNs reassured pt, attempted to redirect. pt then call ed dtr- dtr asking for medication for hr mother, again t/w advised pt that nursing needs a provider to see pt before controlled medications can be given. family verbalizes undrstanding
[2025-07-11 12:48] LABS: Resp Syncy Virus RNA Qual PCR NEGATIVE (Negative); SARS COV2 PCR INHOUSE NEGATIVE (Negative)
--- NOTE | 2025-07-11 13:48 | ED.GENADULT ---
HPI - General Adult General Chief complaint: Dyspnea Stated complaint: SOB, Wheezing 86%02 Time Seen by Provider: 07/11/25 12:39 History of Present Illness ED Provider: Lorrie Martinez NP HPI narrative: 65-year-old female medical history significant for orthopnea, acute hypoxemic respiratory failure, asthma, COPD not on home o2, WHITE, panic disorder, mood disorder, osteoarthritis, diabetic neuropathy, gait instability, benign paroxysmal positional vertigo, hypertension, DANIEL, heart failure with reduced EF, diabetes, presents to the ED from her PCP office where she was visiting her PCP for a follow up visit, noted to be hypoxic. Per the discharge notes, the patient was supposed to be sent home with oxygen but did not qualify on day of discharge that she was not hypoxic. In the PCP visit today she was 86% ambulatory, 91% at room air. On arrival she is crying, very anxious, reporting she did not take her Ativan this morning. Denies any chest pain or pressure, shortness of breath, abdominal pain, nausea or vomiting, does report that she has been feeling subjectively feverish for the past several days since discharge. Related Data Home Medications ?Medication ?Instructions ?Recorded ?Confirmed insulin syringe-needle U-100 1 mL 09/27/22 07/11/25 31 gauge x 5/16 (BD Insulin Syringe Ultra-Fine) metoprolol succinate 50 mg 50 mg PO DAILY 09/21/23 07/11/25 tablet,extended release 24 hr prazosin 1 mg capsule 1 mg PO BEDTIME 09/21/23 07/11/25 buspirone 30 mg tablet 30 mg PO BID 01/31/25 07/11/25 allopurinol 100 mg tablet 100 mg PO DAILY 02/01/25 07/11/25 clonidine HCl 0.1 mg tablet 0.1 mg PO TID PRN Anxiety 02/01/25 07/11/25 duloxetine 60 mg capsule,delayed 60 mg PO DAILY 02/01/25 07/11/25 release insulin glargine 100 unit/mL (3 60 unit subcut BEDTIME 02/01/25 07/11/25 mL) subcutaneous pen (Lantus Solostar U-100 Insulin) pantoprazole 20 mg tablet,delayed 20 mg PO BEDTIME@1800 02/01/25 07/11/25 release tirzepatide (weight loss) 5 mg/0.5 5 mg subcut WE 02/01/25 07/11/25 mL subcutaneous pen injector (Zepbound) linaclotide 290 mcg capsule 290 mcg PO DAILY 05/10/25 07/11/25 (Linzess) risperidone 1 mg tablet 1 mg PO BEDTIME 05/10/25 07/11/25 sertraline 25 mg tablet 75 mg PO DAILY 05/10/25 07/11/25 trazodone 150 mg tablet 150 - 300 mg PO BEDTIME PRN 05/10/25 07/11/25 insomnia insulin lispro 100 unit/mL See Protocol subcut TIDAC 07/04/25 07/11/25 subcutaneous solution (Humalog U-100 Insulin) lorazepam 0.5 mg tablet 0.5 mg PO DAILY PRN anxiety 07/04/25 07/11/25 Previous Rx's ?Medication ?Instructions ?Recorded blood-glucose meter (FreeStyle #1 ea 09/02/22 Lite Meter kit) BD Insulin Syringe (half unit) 0.3 #400 ea 04/27/24 mL 31 gauge x 516 (insulin syr/ndl U100 half dionna) FreeStyle Lucy 3 Hinton #1 ea 04/27/24 (blood-glucose,chief mate,cont) isosorbide mononitrate 30 mg 60 mg (2 x 30 mg) PO DAILY #180 04/27/24 tablet,extended release 24 hr tabs FreeStyle Lancets 28 gauge #200 ea 06/01/24 (lancets) FreeStyle Lite Strips (blood sugar #200 ea 06/01/24 diagnostic) pen needle, diabetic 32 gauge x #200 ea 06/01/2412/02 (Comfort EZ Pen Dimmitt) Comfort EZ Pen Dimmitt 31 gauge x #200 ea 06/02/2412/02 (pen needle, diabetic) ADULT PULL UP XL #360 ea 08/24/24 Chux #200 ea 08/24/24 Commode bags #4 ea 08/24/24 nitrile gloves #360 ea 08/24/24 pressure relief cushion #1 ea 08/24/24 insulin syringe-needle U-100 1 mL #200 ea 09/20/24 31 gauge x 5/16 (BD Insulin Syringe Ultra-Fine) pen needle, diabetic 32 gauge x #1,200 ea 09/28/24 gabapentin 400 mg capsule 400 mg PO BID@0900,1500 #180 caps 12/19/24 FreeStyle Lucy 3 Sensor #6 ea 12/28/24 (blood-glucose sensor) simvastatin 20 mg tablet 20 mg PO BEDTIME #90 tabs 03/08/25 bumetanide 2 mg tablet 2 mg PO DAILY 90 days #90 tabs 03/28/25 albuterol sulfate 90 mcg/actuation 2 puff inhalation Q4-6H PRN 07/07/25 aerosol inhaler (Ventolin HFA) shortness of breath or wheezing #6.7 grams dextromethorphan-guaifenesin 10 5 ml PO Q8H PRN Cough #237 mL 07/07/25 mg-100 mg/5 mL oral syrup prednisone 20 mg tablet 40 mg (2 x 20 mg) PO DAILY 5 days 07/07/25 #10 tabs albuterol sulfate 1.25 mg/3 mL 1.25 mg (3 mL) inhalation QID PRN 07/11/25 solution for nebulization shortness of breath or wheezing #90 mL miscellaneous medical supply #1 ea 07/11/25 nebulizer accessories #10 ea 07/11/25 nebulizers (AeroEclipse II #1 ea 07/11/25 Nebulizer) Allergies Allergy/AdvReac Type Severity Reaction Status Date / Time ibuprofen Allergy Intermediate vomiting, Verified 07/11/25 11:43 itching acetaminophen (Tylenol) Allergy Unknown Unknown Verified 07/11/25 11:43 codeine AdvReac Severe Anaphylaxis Verified 07/11/25 11:43 morphine AdvReac Intermediate vomiting Verified 07/11/25 11:43 vancomycin AdvReac Intermediate Itching Verified 07/11/25 11:43 Review of Systems Review of Systems: ROS is otherwise negative unless mentioned in HPI. [facility] Past Medical History Medical History Panic disorder Diabetic nephropathy Cataracts, bilateral DANIEL (obstructive sleep apnea) COPD (chronic obstructive pulmonary disease) NICM (nonischemic cardiomyopathy) Hypertension Chronic respiratory failure with hypoxia Asthma Obesity hypoventilation syndrome CKD (chronic kidney disease) stage 3, GFR 30-59 ml/min Acute on chronic combined systolic and diastolic CHF (congestive heart failure) Morbid obesity Diabetic neuropathy, painful Depression Diabetes Surgical History History of surgery Hx of cholecystectomy Family History Family History Mother HTN (hypertension) Diabetes CAD (coronary artery disease) Father HTN (hypertension) Diabetes CAD (coronary artery disease) Maternal Grandmother CAD (coronary artery disease) Social History Social History Household Members: None Household Members Other:: GRANDSON Housing: House Housing Other:: with cracker off Do you presently have visiting nurse or other home services: No Alcohol intake: current Alcohol intake frequency: holidays/special occasions only Alcohol type: wine Comment: 1:1 Patient Tobacco Use Status: Former Tobacco user Tobacco use type: Cigarette Years Smoked: 38 Smoked in Last 30 Days: No e-Cigarette/Vaping Use: Never Used Second Hand Smoke Exposure: No Substance Use Type: Former Substance User Advance Directives: Yes Advance Directives on File: Yes Advance Directives Date on File: 04/30/23 Patient : No service: No Current occupational status: disabled Current occupation: rt handed Cognitive needs: Yes (walker, cane) Hearing needs: No Vision needs: Yes (Rx glasses) Physical Exam ED Exam Exam: Nursing notes and vital signs reviewed. Constitutional: Well-appearing, NAD. Alert. Oriented X3. Eyes:EOMI. Neck: Normal inspection. Neck supple. CVS: Normal heart rate and rhythm. Pulses normal. Respiratory: No respiratory distress. Breath sounds normal. Abdomen: Soft, nontender. Skin: Skin warm and dry. Normal skin color. Extremities: No lower extremity edema. Neuro: Oriented X 3. No motor deficit. Vital Signs: Vital Signs - 24 hr 07/11/25 11:41 Temperature 98.0 F Pulse Rate 94 Respiratory Rate 20 Blood Pressure 148/46 H Pulse Oximetry 97 Oxygen Delivery Method Nasal Cannula BMI result Body Mass Index 48.5 Medications Administered Discontinued Medications Generic Name Dose Route Start Last Admin Trade Name Freq PRN Reason Stop Dose Admin Lorazepam 0.5 mg 07/11/25 12:47 07/11/25 12:54 Lorazepam 0.5 Mg Tablet PO 07/11/25 12:48 0.5 mg ONCE ONE Administration Medical Decision Making Medical Decision Making MDM Narrative: Upon my initial assessment of this patient, she was crying out, reporting feeling very anxious. She did not complain of any shortness of breath or chest pain. She is on 2 L nasal cannula saturating 95%. She has a history of hypoxemic respiratory failure related to COPD but does not currently have home oxygen for the chart. I also reviewed the chart, it is noted that she was at her PCP visit this morning, noted to be 86% ambulatory there, and therefore sent here for O2. Here, she is 93% at rest without oxygen. We will ambulate trial. Her viral panel however is positive for influenza a, correlating with new symptom onset of about 3 days ago. She does not meet the treatment criteria for Tamiflu given the duration is greater than 48 hours. X-ray of the chest shows no acute pneumonia. We will reassess after ambulatory pulse ox. For anxiety, I did give her home dose of 0.5 mg p.o.. She would not take it this morning and was actually crying and yelling on my assessment. 2:10 PM-- Upon reassessment she is much calmer. Reports feeling much better after the Ativan dose. Her ambulatory pulse ox was 92-93% on room air. There is no indication for inpatient admission, nor for additional workup. We will proceed with discharge plan. Differential Diagnosis Differential Diagnoses: The differential diagnosis associated with the presentation includes Viral illness, COPD exacerbation, heart failure exacerbation, pneumonia Admission/Observation Consideration of admission/observation: Escalation of care including admission/observation considered (Not indicated, no hypoxia) Lab Data MDM Lab Attestation statement: I reviewed the patient's lab results. (Positive for influenza A) Labs: Lab Results 07/11/25 Range/Units 11:54 Influenza Type A (PCR) POSITIVE A (Negative) Influenza Type B (PCR) NEGATIVE (Negative) RSV RNA Qual (PCR) NEGATIVE (Negative) SARS-CoV-2 RNA (RT-PCR) NEGATIVE (Negative) Independent Interpretation I performed an independent interpretation of an: Plain X-Ray Interpretation: I have reviewed the patient's imaging and agree with the radiologist's findings. Radiology Impression Discussion of test interpretation with radiology: I have reviewed the radiologist's reading. Radiologist Impression: XR/XR chest 2V IMPRESSION: Cardiomegaly. No acute cardiopulmonary abnormality. Independent Historian Clinical information obtained from an independent historian. History obtained from or confirmed by: EMS External Record Review External record reviewed: Inpatient record, Office record, Outpatient record, Prior outpatient labs, Prior outpatient radiology, Primary care record and Outside ED record Prescription Management I considered prescription management with: Antiviral Does not meet criteria Chronic Conditions Patient?s care impacted by: Hypertension and Other (COPD, asthma) Social Determinants Patient?s care significantly limited by Social Determinants of Health including: Problems related to primary support group Discharge Plan Discharge Clinical Impression: Anxiety, Influenza A Patient Disposition: Home, Self-Care Instructions: Influenza (DC), Anxiety (ED), Droplet Precautions (ED) Additional Instructions: As we discussed, you have influenza A. Your oxygen levels are still good, likely 92- 93% without the oxygen. We gave you your dose of Ativan that you take at home to help with your anxiety upon arrival to the ER. Please take this medication as prescribed if you feel anxious at home to prevent any panic or anxiety attacks. Please follow up with your primary care provider within a week if needed. Given you have influenza a, you may have viral illness like symptoms for the next few days. With any worsening complaints at any time, return back to the ED for additional evaluation. Prescriptions: No Action (DME) blood-glucose meter [FreeStyle Lite Meter] Kit See Rx Instructions .Route Qty: 1 0RF Rx Instructions: As directed checks POC 4 X/day (DME) pen needle, diabetic [Comfort EZ Pen Dimmitt] 31 gauge x 5/16 needle See Rx Instructions .Route Qty: 200 3RF Rx Instructions: 4 times daily (DME) insulin syringe-needle U-100 [BD Insulin Syringe Ultra-Fine] 1 mL 31 gauge x 5/16 syringe See Rx Instructions .ROUTE QID Qty: 200 3RF Rx Instructions: Four times daily gabapentin 400 mg capsule 400 mg PO BID@0900,1500 Qty: 180 1RF simvastatin 20 mg tablet 20 mg PO BEDTIME Qty: 90 1RF bumetanide 2 mg tablet 2 mg PO DAILY 90 Days Qty: 90 0RF (DME) miscellaneous medical supply [facility] See Rx Instructions .Route Qty: 1 0RF Rx Instructions: Hospital bed (DME) nebulizers [AeroEclipse II Nebulizer[facility] See Rx Instructions .Route Qty: 1 0RF Rx Instructions: Use every 4 hours as needed for sob and wheezing (DME) nebulizer accessories Kit See Rx Instructions .Route Qty: 10 0RF Rx Instructions: tubing and mouth piece albuterol sulfate 1.25 mg/3 mL solution for nebulization 1.25 mg inhalation QID PRN (Reason: shortness of breath or wheezing) Qty: 90 3RF (DME) insulin syringe-needle U-100 [BD Insulin Syringe Ultra-Fine] 1 mL 31 gauge x 5/16 syringe MISCELLANEOUS QID metoprolol succinate 50 mg tablet extended release 24 hr 50 mg PO DAILY prazosin 1 mg capsule 1 mg PO BEDTIME clonidine HCl 0.1 mg tablet 0.1 mg PO TID PRN (Reason: Anxiety) allopurinol 100 mg tablet 100 mg PO DAILY duloxetine 60 mg capsule,delayed release(DR/EC) 60 mg PO DAILY insulin glargine [Lantus Solostar U-100 Insulin] 100 unit/mL (3 mL) insulin pen 60 unit subcut BEDTIME Zepbound 5 mg/0.5 mL pen injector 5 mg subcut WE pantoprazole 20 mg tablet,delayed release (DR/EC) 20 mg PO BEDTIME@1800 trazodone 150 mg tablet 150 - 300 mg PO BEDTIME PRN (Reason: insomnia) risperidone 1 mg tablet 1 mg PO BEDTIME Linzess 290 mcg capsule 290 mcg PO DAILY sertraline 25 mg tablet 75 mg PO DAILY insulin lispro [Humalog U-100 Insulin] 100 unit/mL solution See Protocol subcut TIDAC Protocol: Insulin Correction Scale Less than or equal to 110 ---- Give (units): 0 111 to 150 Give (units): 0 151 to 200 Give (units): 2 201 to 250 Give (units): 4 251 to 300 Give (units): 6 301 to 350 Give (units): 8 Greater than 350 Give (units): 10 Call MD if Blood Glucose > : 350 Rx Instructions: subcutaneous 15 minutes prior to meal or at the latest at the onset of eating. lorazepam 0.5 mg tablet 0.5 mg PO DAILY PRN (Reason: anxiety) prednisone 20 mg tablet 40 mg PO DAILY 5 Days Qty: 10 0RF dextromethorphan-guaifenesin 10-100 mg/5 mL Syrup 5 ml PO Q8H PRN (Reason: Cough) Qty: 237 0RF albuterol sulfate [Ventolin HFA] 90 mcg/actuation HFA aerosol inhaler 2 puff inhalation Q4-6H PRN (Reason: shortness of breath or wheezing) Qty: 6.7 0RF (DME) lancets [FreeStyle Lancets] 28 gauge misc See Rx Instructions .ROUTE QID Qty: 200 3RF Rx Instructions: four times daily (DME) pen needle, diabetic [Comfort EZ Pen Dimmitt] 32 gauge x 5/16 needle See Rx Instructions .Route Qty: 200 3RF Rx Instructions: four times daily (DME) FreeStyle Lite Strips Strip See Rx Instructions .ROUTE BID Qty: 200 3RF Rx Instructions: four times daily (DME) ADULT PULL UP XL See Rx Instructions .Route .MEDSUPPLY Qty: 360 3RF Rx Instructions: 4 per day (DME) Commode bags See Rx Instructions .Route .MEDSUPPLY Qty: 4 3RF Rx Instructions: 4x/day (DME) nitrile gloves See Rx Instructions .Route .MEDSUPPLY Qty: 360 3RF Rx Instructions: 4x/day (DME) Chux See Rx Instructions .Route .MEDSUPPLY Qty: 200 3RF Rx Instructions: 3x/day (DME) pressure relief cushion See Rx Instructions .Route .MEDSUPPLY Qty: 1 0RF Rx Instructions: daily (DME) FreeStyle Lucy 3 Sensor Device See Rx Instructions .Route Qty: 6 3RF Rx Instructions: every 14 days buspirone 30 mg tablet 30 mg PO BID (DME) FreeStyle Lucy 3 Hinton Misc See Rx Instructions .Route Qty: 1 0RF Rx Instructions: As directed isosorbide mononitrate 30 mg tablet extended release 24 hr 60 mg PO DAILY Qty: 180 3RF (DME) BD Insulin Syringe (half unit) 0.3 mL 31 gauge x 5/16 syringe See Rx Instructions .Route Qty: 400 3RF Rx Instructions: As directed (DME) pen needle, diabetic 32 gauge x 5/32 needle See Rx Instructions .Route Qty: 1200 3RF Rx Instructions: four times daily ipratropium-albuterol 0.5 mg-3 mg(2.5 mg base)/3 mL solution for nebulization 3 ml inhalation ONCE Qty: 3 0RF Referrals: Celia Horn PA [Primary Care Provider, Hospitalist] Print Language: Mozambican
--- NOTE | 2025-07-11 14:12 | PC.NURSE ---
PCT ambulated with pt on RA- mantained 91-92% - 93% at rest COMPUTER FORENSICS ANALYST notified
[2025-07-11 14:30] VITALS: BP 127/33; PULSE 92; RESP 18; TEMP 36.8; O2SAT 92
[2025-07-11 14:42] VITALS: BP 127/33; PULSE 92; RESP 18; TEMP 36.8; O2SAT 92
== END 2025-07-11 14:43 | disposition home or self-care (01) ==
PROVIDERS: Emergency Provider Emergency Medicine; PCP Physician Assistant
DX: J10.1 Influenza due to other identified influenza virus with other respiratory manifestations (principal); R06.02 Shortness of breath; J44.9 Chronic obstructive pulmonary disease, unspecified; Z99.81 Dependence on supplemental oxygen; Z87.891 Personal history of nicotine dependence; F41.9 Anxiety disorder, unspecified
CPT/HCPCS: 71046; 87637; 99283; 99284

== ENCOUNTER → 2025-07-11 12:47 | Outpatient (BNV) | payer OTHER, SELFPAY | PROVIDERS: Emergency Provider Emergency Medicine; PCP Physician Assistant; Visit Provider Radiology Diagnostic Radiology | DX: I51.7 Cardiomegaly (principal) | CPT/HCPCS: 71046 ==

== ENCOUNTER 2025-07-18 08:53 | Outpatient (AMB) | payer OTHER, SELFPAY ==
--- NOTE | 2025-07-18 08:59 | A.OFFVIS_ITS ---
Vital Signs 07/18/25 09:05 Height 5 ft 2 in Weight 265 lb BMI 48.5 Intake Visit Reasons: INJ- B/L knee Euflexxa #2 Intake Note: Lupis is a 65 year old female who presents for follow-up of her bilateral knee pains. The patient states that she got fairly good relief from the 1st set of injections. She continues with her home exercise program. Allergies ibuprofen Allergy (Intermediate, Verified 07/18/25 09:04) vomiting, itching acetaminophen (Tylenol) Allergy (Unknown, Verified 07/18/25 09:04) Unknown codeine Adverse Reaction (Severe, Verified 07/18/25 09:04) Anaphylaxis morphine Adverse Reaction (Intermediate, Verified 07/18/25 09:04) vomiting vancomycin Adverse Reaction (Intermediate, Verified 07/18/25 09:04) Itching Medication List - Last Reconciled 07/18/25 by Mike Valdez MD [ADULT PULL UP XL 4 per day NS] albuterol sulfate 90 mcg/actuation (Ventolin HFA) 2 puffs inhalation Q4-6H PRN albuterol sulfate 1.25 mg (3 mL) inhalation QID PRN allopurinol 100 mg PO DAILY BD Insulin Syringe (half unit) (insulin syr/ndl U100 half dionna) As directed NS blood-glucose meter (FreeStyle Lite Meter kit) As directed checks POC 4 X/day bumetanide 2 mg PO DAILY 90 days buspirone 30 mg PO BID [Chux 3x/day] clonidine HCl 0.1 mg PO TID PRN Comfort EZ Pen Frederick (pen needle, diabetic) 4 times daily NS [Commode bags 4x/day NS] dextromethorphan-guaifenesin 10-100 mg/5 mL 5 mL PO Q8H PRN duloxetine 60 mg PO DAILY FreeStyle Lancets (lancets) four times daily NS FreeStyle Lucy 3 Venetie (blood-glucose,nitrating acid mixer,cont) As directed NS FreeStyle Lucy 3 Sensor (blood-glucose sensor) every 14 days NS FreeStyle Lite Strips (blood sugar diagnostic) four times daily NS gabapentin 400 mg PO BID@0900,1500 insulin glargine (Lantus Solostar U-100 Insulin) 60 units subcut BEDTIME insulin lispro (Humalog U-100 Insulin) See Protocol units subcut TIDAC insulin syringe-needle U-100 (BD Insulin Syringe Ultra-Fine) insulin syringe-needle U-100 (BD Insulin Syringe Ultra-Fine) Four times daily isosorbide mononitrate ER 60 mg (2 x 30 mg) PO DAILY linaclotide (Linzess) 290 mcg PO DAILY lorazepam 0.5 mg PO DAILY PRN metoprolol succinate ER 50 mg PO DAILY miscellaneous medical supply Hospital bed nebulizer accessories tubing and mouth piece nebulizers (AeroEclipse II Nebulizer) Use every 4 hours as needed for sob and wheezing [nitrile gloves 4x/day] pantoprazole 20 mg PO BEDTIME@1800 pen needle, diabetic (Comfort EZ Pen Frederick) four times daily pen needle, diabetic four times daily prazosin 1 mg PO BEDTIME prednisone 40 mg (2 x 20 mg) PO DAILY 5 days [pressure relief cushion daily] risperidone 1 mg PO BEDTIME sertraline 75 mg PO DAILY simvastatin 20 mg PO BEDTIME tirzepatide (weight loss) (Zepbound) 5 mg subcut WE trazodone 150 - 300 mg PO BEDTIME PRN PFSH Medical History Panic disorder Diabetic nephropathy Cataracts, bilateral DANIEL (obstructive sleep apnea) COPD (chronic obstructive pulmonary disease) NICM (nonischemic cardiomyopathy) Hypertension Chronic respiratory failure with hypoxia Asthma Obesity hypoventilation syndrome CKD (chronic kidney disease) stage 3, GFR 30-59 ml/min Acute on chronic combined systolic and diastolic CHF (congestive heart failure) Morbid obesity Diabetic neuropathy, painful Depression Diabetes Surgical History History of surgery Hx of cholecystectomy Family History Mother HTN (hypertension) Diabetes CAD (coronary artery disease) Father HTN (hypertension) Diabetes CAD (coronary artery disease) Maternal Grandmother CAD (coronary artery disease) Social History Household Members: None Household Members Other:: GRANDSON Housing: House 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 Do you presently have visiting nurse or other home services: No Alcohol intake: current Alcohol intake frequency: holidays/special occasions only Alcohol type: wine Comment: 1:1 Patient Tobacco Use Status: Former Tobacco user Tobacco use type: Cigarette Years Smoked: 38 e-Cigarette/Vaping Use: Never Used Second Hand Smoke Exposure: No Substance Use Type: Former Substance User Advance Directives Date on File: 04/30/23 service: No Current occupational status: disabled Current occupation: rt handed Cognitive needs: Yes (walker, cane) Hearing needs: No Vision needs: Yes (Rx glasses) Physical Exam Vital Signs: BMI result Body Mass Index 48.5 Extrem Other: Bilateral knee examination shows minimal effusions, palpable crepitus with range of motion, pain with range of motion, no instability Office Procedures AMB Joint Injection/Aspiration Joint Injection/Aspiration Primary Site: Left Knee Prep: site was prepped using aseptic technique Injected: 20 mg of, Euflexxa, with 3 mL of and 1% plain Lidocaine Procedure: The patient tolerated the procedure well Coding - Large joint Procedure code (CPT) selection complete AMB Joint Injection/Aspiration Joint Injection/Aspiration Primary Site: Right Knee Prep: site was prepped using aseptic technique Injected: 20 mg of, Euflexxa, with 3 mL of and 1% plain Lidocaine Procedure: The patient tolerated the procedure well Coding - Large joint Procedure code (CPT) selection complete Assessment & Plan Assessment & Plan (1) Osteoarthritis of left knee: Code(s): M17.12 - Unilateral primary osteoarthritis, left knee Category: Medical (2) Osteoarthritis of right knee: Code(s): M17.11 - Unilateral primary osteoarthritis, right knee Category: Medical Plan Ms. Mueller presents with bilateral knee pains due to osteoarthritis. The risks and benefits of a 2nd set of Euflexxa viscosupplementation injections were discussed at length with the patient. The patient wished to proceed. She tolerated the injections well. She will continue with her home exercise program. She will follow up next week as Orders: Orders AMB Joint Injection/Aspiration Today M17.12 - Unilateral primary osteoarthritis, left knee AMB Joint Injection/Aspiration Today M17.11 - Unilateral primary osteoarthritis, right knee Coding Level of Care Code Est Pt Level 3 (24961) Add On Problem Visit Only Diagnoses Osteoarthritis of left knee M17.12 Osteoarthritis of right knee M17.11 CPT Codes Coding - 31604 Large joint: 05024 - Large joint ([id number]) Coding - 37646 Large joint: 42785 - Large joint ([id number])
[2025-07-18 09:05] VITALS: BMI 48.5
--- OUTSIDE RECORDS SUMMARY | 2025-07-18 10:55 | XMS_ITS | Clinical Summary ---
Author Organization [facility] Address [address] [place] [address] Phone Care Team Providers Care Burn Nurse Name Role Phone Tavo Huber MD Primary Care Provider [phone] Allergies No known active allergies Social History [...] this topic Insurance [facility] Advance Directives Documents on File Type Date Recorded Patient Trench Pipe Layer Expl anation Health Care Decision (hx) 02/25/2022 [...] (hx) 10/14/2020 AD GARCIA DIRECTIVE Care Teams Burn Nurse Relationship Specialty Start Date End Date Tavo Huber MD [address] [place] [address] Dr Anjelica MA PCP - General Internal Medicine 10/09/21
--- OUTSIDE RECORDS SUMMARY | 2025-07-18 10:55 | XMS_ITS | Clinical Summary ---
Author Organization [facility] Address [address] [place] [address] Phone Care Team Providers Care Color Expert Name Role Phone Celia Horn Primary Care Provider [phone] Allergies Active Allergy Reactions Criticality Noted Date [...] Office Visit [facility] [address] [address] Yaquelin Bustos ARNP Acute nontraumatic [...] Office Visit [facility] [address] [place] [address] Jesus Gilbert MD [address] [address] Health Maintenance Due Date Last Done Comments Breast Cancer Screening 1961 Colorectal Cancer Screening: Annual FOBT 2010 Colorectal Cancer Screening: Colonoscopy 2010 Colorectal Cancer Screening: Sigmoidoscopy 2010 Diabetes: Ophthalmology Exam 09/21/2020 Diabetes: Pedal Pulse Checked 09/21/2020 Diabetes: Sensory Foot Exam 09/21/2020 Diabetes: Visual Foot Exam 09/21/2020 Diabetes: Hemoglobin A1C 03/27/2022 12/25/2021 Pneumococcal Vaccine: 50+ Years (4 of 4 - PCV20 or PCV21) 12/16/2026 12/16/2021, 01/21/2021, 09/09/2018, Additional history exists Pneumococcal Vaccine: Peds (0 to 5 Years) and At-Risk Patients (6 to 49 Years) Discontinued 12/16/2021, 01/21/2021, 09/09/2018, Additional history exists Influenza Vaccine Completed 05/11/2025, , 12/15/2021, Additional history exists Hepatitis B Vaccine Aged [...] 05/11/2025 Historical Provider LAB BLOOD ORDERABLES Ofelia leiva Result from Last 3 Months Insurance Medicaid [place] [facility] Medicaid Care Teams Color Expert Relationship Specialty Start Date End Date Celia Horn [address] [place] [id number] PCP - General 05/15/25
--- OUTSIDE RECORDS SUMMARY | 2025-07-18 10:55 | XMS_ITS | Clinical Summary ---
Author Organization [facility] Address [address] [place] [address] Phone Care Team Providers Care Major Case Detective Name Role Phone Andi Mejia MD Primary Care Provider [phone] Allergies Active Allergy Reactions Criticality Noted Date [...] file Medical Devices Not on file Insurance [place] [address] [facility] [place] [address] [facility] Advance Directives For more information, please contact: [phone] (9AM - 5PM [facility], Thursday-Thursday) Documents on File Type Date Recorded Patient Kiln Burner Expl anation MOLST 11/24/2022 12:57 PM Healthcare Proxy 12/21/20202020 Health care Proxy Care Teams Major Case Detective Relationship Specialty Start Date End Date Andi Mejia MD [email or web address] PCP - General Family Medicine 11/17/22 Additional Source Comments The information contained in this document represents components of the legal health record. It is not the complete legal health record.[facility]
--- OUTSIDE RECORDS SUMMARY | 2025-07-18 10:55 | XMS_ITS | Encounter Summary ---
Author Organization [facility] Address [address] [place] [address] Phone Care Team Providers Care Utilities Service Investigator Name Role Phone Andi Mejia MD Primary Care Provider [phone] Encounter Details Date Type Department Care Team (Late st Contact Info) Description 11/23/2022 Procedure Pass [facility], Ct Scan - [facility] [address] [place] [address] Social History Tobacco Use Types Packs/Day Years [...] documented as of this encounter Care Teams Utilities Service Investigator Relationship Specialty Start Date End Date Andi Mejia MD [email or web address] PCP - General Family Medicine 11/17/22 documented as of this encounter Additional Source Comments The information contained in this document represents components of the legal health record. It is not the complete legal health record.[facility]
--- OUTSIDE RECORDS SUMMARY | 2025-07-18 10:55 | XMS_ITS | Data Portability ---
Author Organization [facility], Main Office Address [address], [address] [place] [address] Care Team Providers Care Environmental Engineering Assistant Name Role Phone SISI WATSON Primary Care Provider [facility] OTHER Assessment Encounter Date Assessment Date Assessment LastModified by Organization Details LastModified Time 11/17/2022 11/17/2022 11/13/22 wbc 11.9, hgb 9.9, plt 226, na 140, k 4.9, bun 103, creat 3.30, LFTs normal [email or web address] Not available 11/17/2022 13:30:40 11/24/2022 11/24/2022 11/13/22 [...] Recorded Time Chronic kidney disease stage 3A 127970712 Active 2022 Andi Mejia MD [address], [address], [place], [address], [facility] 3 09:24:07 Morbid obesity 606682395 Active 2022 Andi Mejia MD [address], [address], [place], [address], [facility] 3 09:29:42 Chronic combined systolic and diastolic heart failure 4443953932322 00 Active 2022 Andi Mejia MD [address], [address], [place], [address], [facility] 3 09:29:52 Nonischemic congestive cardiomyopa thy 361726786840 Active 2022 Andi Mejia MD [address], [address], [place], [address], [facility] 3 09:30:08 Anxiety 76516297 Active 2022 Andi Mejia MD [address], [address], [place], [address], [facility] 3 09:30:15 Depressive disorder 76371325 Active 2022 Andi Mejia MD [address], [place], [address], [facility] 3 09:30:19 Asthma 805625104 Active 2022 Andi Mejia MD [address], [place], [address], [facility] 3 09:30:26 Chronic pain 57893183 Active 2022 Andi Mejia MD [address], [place], [address], [facility] 3 09:30:32 Chronic constipatio n 658655386 Active 2022 Andi Mejia MD [address], [address], [place], [address], [facility] 3 09:30:40 Chronic obstructive pulmonary disease 94858975 Active 2022 Andi Mejia MD [address], [address], [place], [address], [facility] 3 09:30:44 Diabetic peripheral neuropathy 092585902 Active 2022 Andi Mejia MD [address], [address], [place], [address], [place] [facility] 3 09:30:56 Diabetes mellitus 68208077 Active 2022 Andi Mejia MD [address], [address], [place], [address], [facility] 3 09:31:01 Mixed hyperlipide matilda 090108802 Active 2022 Andi Mejia MD [address], [address], [place], [address], [facility] 3 09:31:09 Essential hypertensio n 64978973 Active 2022 Andi Mejia MD [address], [place], [address], [facility] 3 09:31:15 Obstructive sleep apnea syndrome 96333473 Active 2022 Andi Mejia MD [address], [address], [place], [address], [facility] 3 09:31:20 Panic disorder 672699412 Active 2022 Andi Mejia MD [address], [address], [place], [address], [facility] 3 09:31:26 Coronary arterioscle rosis 35466726 Active 2022 Andi Mejia MD [address], [address], [place], [address], [facility] 3 09:31:30 Chronic kidney disease stage 4 402720068 Active 2022 Carolina Dennis MD [address], [address], [place], [address], [facility] 3 18:36:56 Acute hyponatremi a 8340781 Active 2022 Carolina Dennis MD [address] [facility], [address], [place], [address], [facility] 3 18:43:11 Asthenia 23784797 Active 2022 Carolina Dennis MD [address] [facility] [address] [facility], [address], [place], [address], [facility] 3 18:43:57 Problem Notes None recorded. Medical Equipment None Reported. Allergies Allergen ID Allergen Name Allergen Category Reaction Reaction Severity Criticality Documentation Date Start Date Code Code System Note Provider Name and Address Organization Details Recorded Time 08500 ibuprofen medicatio n Not available Not available Not available 10/08/2022 5640 RxBlake Mejia MD [address] [facility], [address], [place], [address], [facility] [facility] 3 09:16:39 [address]103 Tylenol medicatio n Not available Not available Not available 10/08/2022 3 RxBlake Mejia MD [address] [facility], [address], [place], [address], [facility] 3 09:16:43 72010 morphine medicatio n Not available Not available Not available 10/08/2022 [id number] Magdaleno Mejia MD [address] [facility] [address], [address], [place], [address], [facility] 3 09:16:48 Medications Name Sig Start Date [...] 97.9 [degF] 124/70 mm[Hg] CHAKA Hawkins [address] [facility], [facility] [address], [place], [address], [facility] 3 07:57:14 Date Recorded Heart rate Respiratory rate Body temperature Oxygen saturation Provider Name and Address Organization Details Last Updated DateTime 11/18/2022 74 /min 16 /min 97.8 [degF] 96 % PEDRO MONAE NP [address] [facility], [facility] [address], [place], [address], [facility] 3 15:33:19 Date Recorded Body weight Body mass index (BMI) Body height Heart rate Respiratory rate Body temperature Oxygen saturation Systolic And Diastolic Provider Name and Address Organization Details Last Updated DateTime 3 484803. 54 g 44.6 kg/m2 157.48 cm 80 /min 18 /min 97.6 [degF] 96 % 148/82 mm[Hg] Carolina Dennis MD [address] [facility], [facility] [address], [place], [address], [facility] 3 18:00:03 Social History Question Answer Notes LastModified by Organizat ion Details LastModified Time Tobacco Smoking Status Former Smoker quit 1999 30+ pack year hx Andi Mejia MD [address] [facility] [address], [place], [address], [facility] 10/08/2022 11:59:39 Do You Have An Advance Directive? Yes Information not available 10/08/2022 What Is Your Code Status? Full Code [email or web address] Information not available 10/08/2022 Where Do You Live? Apartment Information not available 11/24/2022 Legal Guardian? No Information not available 11/24/2022 Do You Have A Medical Power Of Card Lacer? Yes Information not available 11/24/2022 What Was [...] Recorded Time pneumococcal polysaccharide PPV23 7 completed [facility] 09/23/2023 15:30:16 pneumococcal polysaccharide PPV23 2 completed [facility] 09/23/2023 15:31:52 Past Encounters Encounter ID Performer Location Encounter Start Date Encounter Closed Date Diagnosis/Indication Diagnosis SNOMED-CT Code Diagnosis ICD10 Code Diagnosis IMO Codes Diagnosis Note [id number] Andi Mejia MD [facility] on [address] [place] [address] 10/08/2022 09:16:00 10/13/2022 13:18:32 Acute kidney injury 38369721 N17.8 ARF on CRF stage 3 at baseline however appear to be stage 4improved with IVFmonitor renal functionav oid nephrotoxi c meds as ablenephro consult Chronic ki dney disease stage 3A 054390252 N18.31 carrying dx of crf stage 3 however appear stage 4 Asthenia 53505045 R53.1 severe deconditio ningPT OT eval and treatmonit or need for increased services in community vs need to transition to LTC Acute hyponatremia 02337 02 E87.1 Aa=809 in hospitalre peat bmp and monitor lytes Morbid obesity 680046733 E66.01 dietary to eval Chronic co mbined systolic and diastolic heart failure 8830526111 40028 I50.42 bumex 2 mg qam 1 mg qpmspirono lactone 25 mg bidmonitor respirator y and fluid statusmoni tor renal function with recent arf on crf Nonischemi c congestive cardiomyopathy 7621843789 04 I42.0 added to PMHcontinu e current meds Anxiety 31101541 F41.1 fluoxetine 40 mg qdrisperda l 1 mg bid question dx of bipolarto contact PCP for full dx listpsych to evalmonito r for behaviors Asthma 951653552 J45.99 8 at baselineal buterol MDI prn Depressive disorder 3548 9007 F33.8 see above Chronic pain 32297951 G8 9.29 gabapentin 400 mg tidoxycodo ne 5 mg q 6 prnmonitor for effect Chronic constipation 236 204951 K59.09 bowel protocol Chronic ob structive pulmonary disease 34340505 J41.1 carrying dxadded to PMHmonitor respirator y status Diabetic p eripheral neuropathy 352310589 E11.42 gabapentin 400 mg tidmonitor for effect Diabetes mellitus 067596 09 E11.21 lantus 50 units bidSS insulinmon itor blood glucose and need to titrate Mixed hyperlipidemia 267 699944 E78.2 simvastati n 20 mg qdcontinue d Essential hypertension 99539527 I10 appears to have difficult to control htn current onbumex 2 mg qam 1 mg qpmspirono lactone 25 mg bidmetopro lol 50 mg qdnorvasc 5 mg qdimdur 30 mg qdhydralaz ine 25 mg bidmonitor bp and need to titrate Obstructiv e sleep apnea syndrome 40566893 G47.33 carrying dx added to PMH Panic disorder 316216545 F41.0 see aboveon risperdalp sych to eval Coronary arteriosclerosis 43809384 I25.10 metoprolol 50 mg qdASA 81 mg qdsimvasta tin 20 mg qdcontinue d [id number] AHSAN MCCONNELL NP [facility] on [address] [place] [address] 10/14/2022 11:46:11 10/16/2022 16:00:13 Acute kidney injury 45815517 N17.8 ARF on CRF stage 3 at baseline however appear to be stage 4improved with IVFmonitor renal function - check CMP in am x 1avoid nephrotoxi c meds as able; is on diureticsn ephro consult prn Chronic ki dney disease stage 3A 196473217 N18.31 carrying dx of crf stage 3 however appear stage 4 Asthenia 77560221 R53.1 severe deconditio ningPT OT eval and treatmonit or need for increased services in community vs need to transition to LTC Acute hyponatremia 08098 02 E87.1 La=385 in hospitalCM P x 1 in am Morbid obesity 196394412 E66.01 dietary to evalChange diet from regular to carb control Chronic co mbined systolic and diastolic heart failure 1385092124 92529 I50.42 bumex 2 mg qam 1 mg qpmspirono lactone 25 mg bidmonitor respirator y and fluid statusmoni tor renal function with recent arf on crf - CMP in am Nonischemi c congestive cardiomyopathy 1517331608 04 I42.0 added to PMHcontinu e current meds Anxiety 60153307 F41.1 fluoxetine 40 mg qdrisperda l 1 mg bid question dx of bipolarto contact PCP for full dx list - re-request edpsych to cassie mccain for behaviors Asthma 930781920 J45.99 8 at baselineal buterol MDI prn Depressive disorder 3548 9007 F33.8 see above Chronic pain 83712501 G8 9.29 gabapentin 400 mg tidoxycodo ne 5 mg q 6 prnmonitor for effect Chronic constipation 236 045032 K59.09 Add senna-s 2 tabs dailybowel protocolMo nitor and adjust as needed Chronic ob structive pulmonary disease 43310688 J41.1 carrying dxadded to PMHmonitor respirator y status Diabetic p eripheral neuropathy 614065999 E11.42 gabapentin 400 mg tidmonitor for effect Diabetes mellitus 031797 09 E11.21 lantus 50 units bidSS insulinmon itor blood glucose and need to [id number] x 1 in am Mixed hyperlipidemia 267 168844 E78.2 simvastati n 20 mg qdCMP, lipids x 1 in amcontinue d Essential hypertension 19554358 I10 appears to have difficult to control htn current onbumex 2 mg qam 1 mg qpmspirono lactone 25 mg bidmetopro lol 50 mg qdnorvasc 5 mg qdimdur 30 mg qdhydralaz ine 25 mg bidmonitor bp and need to titrate Obstructiv e sleep apnea syndrome 41552808 G47.33 carrying dx added to PMH Panic disorder 357134235 F41.0 see aboveon risperdalp sych to eval Coronary arteriosclerosis 30568629 I25.10 metoprolol 50 mg qdASA 81 mg qdsimvasta tin 20 mg qdcontinue d [id number] Andi Mejia MD [facility] on [address] [place] [address] 10/22/2022 15:37:47 10/24/2022 12:17:55 Chronic kidney disease stage 3A 641869839 N18.31 carrying dx of crf stage 3 however appear stage 4monitor renal functionla bs ordered for tomorrow then q tuesdaysav oid nephrotoxi c meds as ablerefer to nephrowill attempt voiding trial in am with bladder scan q shift and straight cath if > 300cc Asthenia 61691819 R53.1 improving with therapynow able to ambulate up to 100 feet with walker with contact guardmonit or need for increased services in community vs need to transition to LTC Acute hyponatremia 82738 02 E87.1 [facility] and monitor lytesorder ed for tomorrow Chronic co mbined systolic and diastolic heart failure 9894529275 15746 I50.42 bumex 2 mg qam 1 mg qpmspirono lactone 25 mg bidmonitor respirator y and fluid statusmoni tor renal function with recent arf on crf Essential hypertension 67735319 I10 bumex 2 mg qam 1 mg qpmspirono lactone 25 mg bidmetopro lol 50 mg qdnorvasc 5 mg qdimdur 30 mg qdhydralaz ine 25 mg bidmonitor bp and need to titrate [id number] CHAKA Hawkins [facility] on [address] [place] [address] 10/27/2022 11:28:29 10/29/2022 10:44:01 Acute constipation 922700522 K59.09 xray of abdomen for unknown amount [...] d Chronic ki dney disease stage 3A 371080928 N18.31 bun/creat remains elevated, though lab results as above slightly better on 10/23/22avoi d nephrotoxi c meds as ablerefer to nephro - 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 Acute hyponatremia 44818 02 E87.1 Na 139 on 10/23/22labs weekly on Tuesdays Chronic co mbined systolic and diastolic heart failure 0954935894 63159 I50.42 compensate dbumex 2 mg q am, 1 mg q pmspironol actone 25 mg bidmonitor fluid statusmoni tor renal function as above Essential hypertension 88548258 I10 ortho BPs bid x 3 dayswill dc hydralazin e 25 mg bid nowbumex 2 mg q am, 1 mg q pmspironol actone 25 mg bidmetopro lol 50 mg qdnorvasc 5 mg qdimdur 30 mg qdmonitor bp and need to titrate [id number] Andi Mejia MD [facility] on [address] [place] [address] 10/28/2022 12:36:51 10/30/2022 15:40:26 Panic disorder 274746672 F41.0 appears to be experienci ng panic attackvita l stablestar t ativan 0.5 mg q 4 may repeat in 30 min for effectscri pt and e kit script writtento ED for acute decompensa tionof note labs were ordered for today however not drawn [id number] [facility]i [facility] [address] [place] [address] 10/31/2022 11:44:27 11/03/2022 16:09:35 Orthostatic hypotension 34550353 I95.1 with therapy stating bp dropped to 80's/40's when standing Essential hypertension 37594588 I10 see abovebumex 2 mg qam 1 mg qpmspirono lactone 25 mg bidmetopro lol 50 mg qd(norvasc 5 mg qd now discontinu ed)imdur 30 mg qdhydralaz ine 25 mg bidmonitor bp and need to titrate Pain of le ft shoulder joint 9506292114 8685539 M25.512 probable underlying OAx ray orderedawa it results Panic disorder 435163318 F41.0 patient now much improved and back to baselinemo nitor need to titrate ativan [id number] EPIFANIO [facility] on [address] [place] [address] 11/13/2022 13:45:01 11/18/2022 16:00:29 Essential hypertension 48108977 I10 continue bumex 2 mg qam 1 mg qpmspirono lactone 25 mg bidmetopro lol 50 mg qdimdur 30 mg qdhydralaz ine 25 mg bidmonitor bp and need to titrate Chest pain 94754620 R07. 9 see HPIno changes to plan of care despite elevated D dimer and tropnot felt to be pleuriticO rdered prn nitro for chest pain Chronic ki dney disease stage 3A 307768010 N18.31 likely moving to end stage with creat of 103 and bun 3.30encour age PO fluidsavoi d nephrotoxi c meds Anxiety 91273708 F41.1 ativan 0.5 mg q 4 hours PRNcontinu e [id number] CHAKA Hawkins [facility] on [address] [place] [address] 11/17/2022 07:53:39 11/19/2022 11:29:11 Chest pain 74664121 R07.9 no chest pain while in ED last night and EKG reassuring no changes to plan of care despite elevated D dimer and tropnot felt to be pleuriticp rn nitro available for chest pain Essential hypertension 89808003 I10 bp normalbume x 2 mg q am, 1 mg q pmspironol actone 25 mg bidmetopro lol 50 mg qdimdur 30 mg qdmonitor bp and adjust meds prn Chronic ki dney disease stage 3A 652348305 N18.31 likely moving to end stage with creat of 103 and bun 3.30encour age PO fluidsavoi d nephrotoxi c medsmonito r renal functionre jerry to nephro if pt and family agree Pain of le ft shoulder joint 9095995486 7483265 M25.512 is chronicno fracture on xray in ED though does have osteophyte s and joint space narrowingc ontinue tizanidine 4 mg qhs 20790220 PEDRO MONAE NP [facility] on [address] [place] [address] 11/18/2022 14:37:50 11/20/2022 14:56:24 Chronic combined systolic and diastolic heart failure 4958997469 65948 I50.42 compensate d bumex 2 mg q am, 1 mg q pm spironolac tone 25 mg bid monitor fluid status monitor renal function Anxiety 58834039 F41.1 ativan 0.5 mg q 4 hours PRNpsych prn [id number] Carolina Dennis MD [facility] on [address] [place] [address] 11/24/2022 17:49:54 11/28/2022 12:00:50 Chronic combined systolic and diastolic heart failure 6420679754 34806 I50.42 Appears euvolemic. Continue metoprolol 50 mg qd, bumex 2 mg q am and 1 mg q pm and spironolac tone 25 mg BIDMay need to decrease diuretics depending on renal functionMo nitor resp. status, fluid status, wts and labs. Anxiety 37762410 F41.1 Continue fluoxetine 30 mg qd and lorazepam 0.5 mg q 4 hrs prn.Monito r mood.Psych following. Essential hypertension 47477638 I10 Last check borderline , but otherwise good.Katherin nue bumex 2 mg q am and 1 mg q pm, spironolac tone 25 mg BID, metoprolol 50 mg qd, and imdur 30 mg qd.BP not being checked regularly, will order for M&F.Monito r BP and labs. Pain of le ft shoulder joint 7237388252 4918367 M25.512 Chronic pain with evidence of moderately severe OA per xray.With allergies to APAP, ibuprofen and morphine.W ill continue oxycodone 5 mg q 6 hrs prn.Will use ice, heat and PT and consider referral for steroid injection. Orthostati c hypotension 92171251 I95.1 Happened one time with rehab.No further episodes.M onitor. Acute constipation 9006 K59.09 Improved on increased bowel regimen.Co ntinue bowel meds as ordered.Mo nitor bowel function. Acute hyponatremia 18032 02 E87.1 No labs since 11/13, will reorder weekly labs. Asthenia 25298685 R53.1 Remains deconditio sissy.Contin ues to need PT/OT for strengthen ing, balance, gait training, safety and function.C ontinue fall precaution s.Monitor for safety.Mon itor for needs in terms of outpt services versus LTC. Morbid obesity 974873962 E66.01 Continue to encourage healthy eating.Mon itor. Asthma 578311723 J45.99 8 As above. Depressive disorder 3548 9007 F33.8 see above Chronic pain 56523769 G8 9.29 With renal failure rec for gabapentin is qd.Will change to gabapentin 600 mg qd and continue tizanidine 4 mg qhs, and oxycodone 5 mg q 6 prnMonitor sxs Chronic ob structive pulmonary disease 73546546 J41.1 Combined obstructiv e and restrictiv e disease per PFTS in past.Katherin nue Flovent 110 mcg 2 puffs BID, and albuterol HFA 2 puffs q 4 hrs prn.Monito r resp status. Diabetic p eripheral neuropathy 929793738 E11.42 As above Diabetes mellitus 824313 09 E11.21 Sugars in good control since here. HgA1C was 8.5 in 3Cont inue lantus 50U BID and SSI.Monito r fingerstic ks TID and HgA1C q 3 months. Mixed hyperlipidemia 267 040191 E78.2 Continue simvastati n 20 mg qdMonitor labs yearly Obstructiv e sleep apnea syndrome 50646509 G47.33 Not on CPAP.Consi jo-ann sleep study. Coronary arteriosclerosis 73179072 I25.10 No recent sxs (recent chest pain not thought to be cardiac.)C ontinue meds as above.F/U with cardio prn. Chronic ki dney disease stage 4 066930331 N18.4 No labs since 11/13.With severely elevated BUN.Will order labs for tomorrow.N eeds renal consult.Wi ll be real balancing act with management of CHF and CKD. [id number] Andi Mejia MD [facility] on [address] [place] [address] 11/26/2022 14:50:28 11/28/2022 12:50:15 Acute kidney injury 26950102 N17.8 ARF on CRF stage 3 at baseline however appear to be stage 4improved with IVFmonitor renal functionav oid nephrotoxi c meds as ablenephro consult Chronic ki dney disease stage 3A 992882964 N18.4 see HPImonitor renal function on bumex and spironolac tone for CHFrepeat bmp at f/u with pcp Asthenia 81082008 R53.1 will need 24 hour supervisio n now in place in community Chronic co mbined systolic and diastolic heart failure 7319910497 70286 I50.42 bumex 2 mg qam 1 mg qpmspirono lactone 25 mg bidmonitor respirator y and fluid statusmoni tor renal function with recent arf on crf Coronary arteriosclerosis 94359030 I25.10 metoprolol 50 mg qdASA 81 mg qdsimvasta tin 20 mg qdcontinue d Health Concerns Section Related Observation LastModified by Organization Detai ls LastModified Time None Recorded Concern Status LastModified by Organization Details LastModified Time None Recorded Advance Directives Directive Y: Payers Insurance Date Sequence Insurance Name Policy Number Policy Drake Covered Member ID Drake Member ID Guarantor Name 12/25/2023 1 [place] [employer] [id number] [employer] Notes Date Note Type Note Provider Name [...] She appears very anxious. EPIFANIO CHEN [address] [facility], [address], [place], [address], [facility] 11/13/2022 14:07:45 3 text/html pt seen today for acute telemedicine visit. last night pt called 911 and sent herself out to [facility] ED stating per nurse that she [...] to SNF for rehab. CHAKA Hawkins [address] [facility], [address], [place], [address], [facility] 11/17/2022 13:34:21 3 text/html ROS as noted in the HPI seen today for acute rounding visit, CAOx3 in the day room in her wheelchair, she is weepy saying my legs don't work anymore , chatted withher for a few minutes and she calmed, lungs clear, ate well at lunch PEDRO MONAE NP [address] [facility], [address], [place], [address], [facility] 11/19/2022 10:31:14 3 text/html This is a 62 yo woman who I am seeing today for a routine MD 60 day reeval rounding visit. She was admitted here on 10/03 after spending several days at the [facility] ED awaiting placement. She had been seen at the [facility] ED several times in the month prior. [...] since she was admitted to this facility. [employer] [employer] concurs and [facility] records show this also. pt is eating 75-100% of all her meals. currently on senna 2 qhs and colace daily. pt is making progress with rehab, walking up to 165 feet. ghotra cath recently removed and pt is voiding normally. Carolina Dennis MD [address] [facility], [address], [place], [address], [facility] 11/24/2022 20:21:29 3 text/html Patient is a [...] home. 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 Discussed with SW. Of note labs were ordered yesterday, called labs for result with significant improvement in bun/cre Andi Meija MD [address] [place] [address], [address], [place], [address], [facility] 11/26/2022 14:57:47 OBGyn Episode No OBEpisode recorded.
--- OUTSIDE RECORDS SUMMARY | 2025-07-18 10:55 | XMS_ITS | Encounter Summary ---
Author Organization [facility] Address [address] [place] [address] Phone Care Team Providers Care Silk Screen Processor Name Role Phone Tavo Huber MD Primary Care Provider Andi Mejia MD Primary Care Provider [phone] Encounter Details Date Type Department Care Team (Late st Contact Info) Description 10/23/2022 Transcribe Orders [facility] Specimen Processing [address] [place] [address] Andi Mejia MD [address] [facility] [address] [place] [address] [email or web address] Bipolar 1 disorder (Primary Dx) Social History [...] EDT) WBC 8.33 4.00 - 11.00 K/uL [facility] RBC 3.40(L) 3.72 - 5.30 M/uL [facility] HGB 9.3(L) 11.4 - 15.9 g/dL [facility] HCT 29.5(L) 34.2 - 46.8 % [facility] PLT 178 140 - 430 K/uL [facility] MCV 86.8 78.0 - 97.0 fL [facility] MCH 27.4 25.0 - 33.0 pg [facility] MCHC 31.5(L) 32.0 - 36.0 g/dL [facility] RDW 14.3 11.0 - 16.0 % [facility] MPV 9.2 8.4 - 12.8 fl [facility] DIFF METHOD Auto [facility] NEUTS 71.2 43.0 - 75.0 % [facility] LYMPHS 13.7(L) 18.2 - 47.4 % [facility] MONOS 11.5(H) 4.00 - 11.00 % [facility] EOS 2.6 0.0 - 8.0 % [facility] BASOS 0.4 0.0 - 2.0 % [facility] Granulocytes, immature (%) 0.6 0.0 - 0.9 % [facility] ABSOLUTE NEUTS 5.93 1.80 - 7.70 K/uL [facility] ABSOLUTE LYMPHS 1.14 1.00 - 3.10 K/uL [facility] ABSOLUTE MONOS 0.96(H) 0.20 - 0.80 K/uL [facility] ABSOLUTE EOS 0.22 0.00 - 0.80 K/uL [facility] ABSOLUTE BASOS 0.03 0.00 - 0.09 K/uL [facility] Granulocytes, immature 0.05 0.00 - 0.05 K/uL [facility] Blood 10/23/2022 6:20 AM EDT 10/23/2022 8:31 AM EDT us Andi Mejia MD LAB BLOOD BKR ORDERABLES Final R esult [address] [address] * (ABNORMAL) Basic metabolic panel (10/23/2022 6:20 AM EDT) SODIUM 139 133 - 146 mmol/L [facility] CHLORIDE 95(L) 96 - 108 mmol/L [facility] POTASSIUM 4.6 3.3 - 5.1 mmol/L [facility] CO2 30 21 - 35 mmol/L [facility] BUN 102(H) 6 - 19 mg/dL [facility] CREATININE 2.50(H) 0.5 - 1.5 mg/dL [facility] GLUCOSE 137(H) 70 - 99 mg/dL [facility] CALCIUM 8.7 8.4 - 10.3 mg/dL [facility] EGFR 21(L) >59 mL/min/1.7 3m2 [facility] Comment:Estimated glomerular filtration rate calculated using the CKD-EPI refit equation. ANION GAP 19 10 - 20 mmol/L [facility] 10/23/2022 6:20 AM EDT 10/23/2022 8:31 AM EDT us Andi Mejia MD LAB BLOOD BKR ORDERABLES Final R esult Performing Organization Address City/State/[facility] Co de Phone Number [address] [phone] documented in this encounter Visit Diagnoses Diagnosis Bipolar 1 disorder- Primary documented in this encounter Additional Health Concerns Infection Onset Date Last Indicated Resolved Time CoV-Risk 11/13/2022 11/13/2022 11/24/2022 1:23 AM EDT documented as of this encounter Care Teams Silk Screen Processor Relationship Specialty Start Date End Date Tavo Huber MD [address] [place] [address] [place] [address] PCP - General Internal Medicine 12/21/20 11/16/22 Andi Mejia MD [address] [place] [address] [place] [address] [email or web address] PCP - General Family Medicine 11/17/22 documented as of this encounter Additional Source Comments The information contained in this document represents components of the legal health record. It is not the complete legal health record.[facility]
--- OUTSIDE RECORDS SUMMARY | 2025-07-18 10:56 | XMS_ITS | Encounter Summary ---
Author Organization [facility] Address [address] [place] [phone] Phone Care Team Providers Care Jute Bag Clipper Name Role Phone Andi Mejia MD Primary Care Provider Encounter Details Date Type Department Care Team (Late st Contact Info) Description 11/23/2022 Procedure Pass [facility], Ct Scan - [facility] [address] [place] [address] Social History Tobacco Use Types Packs/Day Years [...] documented as of this encounter Care Teams Jute Bag Clipper Relationship Specialty Start Date End Date Andi Mejia MD [email or web address] PCP - General Family Medicine 11/17/22 documented as of this encounter Additional Source Comments The information contained in this document represents components of the legal health record. It is not the complete legal health record.[facility]
== END 2025-07-18 09:23 | disposition home or self-care (01) ==
LOC: HO.HOS 08:54
PROVIDERS: PCP Physician Assistant; Visit Provider Orthopaedic Surgery
DX: M17.0 Bilateral primary osteoarthritis of knee (principal)
CPT/HCPCS: 20610; 99213

== ENCOUNTER → 2025-07-18 08:53 | Outpatient (BNVA) | payer OTHER, SELFPAY | PROVIDERS: PCP Physician Assistant; Visit Provider Orthopaedic Surgery | DX: M17.0 Bilateral primary osteoarthritis of knee (principal) | CPT/HCPCS: 20610; 99212; J2003; J7323 ==